=== PATIENT | male | born 1945 | race Caucasian/White ===

== ENCOUNTER → 2018-04-14 08:00 | Outpatient (BNVA) | payer MEDICARE, BC, SELFPAY | PROVIDERS: PCP Internal Medicine; Referring Provider Internal Medicine; Visit Provider Student in an Organized Health Care Education/Training Program | DX: R69 Illness, unspecified (principal) ==

== ENCOUNTER 2018-04-14 10:06 | Day surgery (SDC) | payer MEDICARE, BC, SELFPAY ==
[2018-04-14 10:26] VITALS: BP 118/78; PULSE 68; RESP 16; TEMP 36; O2SAT 98
--- NOTE | 2018-04-14 10:59 | W.PM.DSUDISC ---
Discharge Plan Disposition Patient Disposition: HOME Condition: Good Discharge Details Reason For Visit: LRF TRIGGER FINGER Attending Provider: Zurdo Daniel Primary Care Provider: Reji Adams Home Meds and New Rx's Prescriptions: Continue alprazolam [Xanax] 0.25 MG tablet 0.25 mg PO BID RF: 0 pravastatin 20 MG tablet 20 mg PO DAILY RF: 0 saw palmetto 160 mg Capsule 160 mg PO DAILY RF: 0 ha extract 500 mg Capsule 500 mg PO DAILY RF: 0 Discharge Instructions Additional Instructions: Resume your home medications. Take Tylenol (up to 1000mg every 8 hours) and Ibuprofen (up to 800mg every 8 hours) as needed for pain. You may apply ice. Stand Alone Forms: María Babin Activity:: Elevate Remove Dressings/Wound Care:: 48 hours Shower/Bathe:: 48 hours Discharge Orders Discharge Orders: Discharge Order (Routine); Ordered 04/14/18 Ordered By: Zurdo Daniel DS: Diagnosis Discharge Diagnosis (1) Trigger finger, left ring finger: Status: Acute
[2018-04-14] MEDS: Bupivacaine 0.5% Pres-Free 30 ML VIAL (11:54)
[2018-04-14] MEDS: Lidocaine 1% Pres-Free 5 ML VIAL 10 ML (12:02)
--- NOTE | 2018-04-14 12:42 | W.PM.OP ---
Date of service: 04/14/18 Time of Service: 10:42 Operative Note DATE OF PROCEDURE: 04/14/18 PRE-OP DIAGNOSIS: Trigger Finger -left ring finger POST-OP DIAGNOSIS: same PROCEDURE: Trigger Finger Release -left ring finger SURGEON: Zurdo Daniel ANESTHESIA: local PATHOLOGY: none sent COMPLICATIONS: None Patient was transported to: same day Patient's condition: stable Indications: I have seen Gregg in clinic for symptoms of a trigger finger. The catching, clicking, locking, and pain limited function. The diagnosis of trigger finger was evident. The symptoms had not responded to conservative measures. I discussed trigger finger release with the patient. I reviewed the risks of the procedure to include, but not limited to, bleeding, infection, pain, stiffness, incomplete release, damage to nerves or vessels, continued catching, recurrence. Despite these risks, the patient elected to proceed. Findings: There was a tightened A1 cheikh which was released. The flexor tendons were inspected and the patient was able to move the finger without any catching, clicking, or locking. Procedure Description: Gregg was greeted in the preoperative holding area where the correct side was identified and marked. The consent was reviewed with the patient and signed. All questions were answered. Gregg was taken back to the operating room. The patient was placed into the supine position on the operating room table with the left arm on an arm board. All bony prominences were well padded. No prophylactic antibiotics were administered since this was a clean, elective hand surgical case. The left arm was then prepped with Chloraprep and draped in a standard fashion with stockinette and extremity drape. A timeout to confirm correct identity, side and site, procedure, allergies, anesthesia, and medical concerns was performed. The surgical site was marked as a longitudinal incision directly over the A1 cheikh of the involved digit. This was confirmed with palpation during finger flexion. This area, overlying the metacarpal head, was then anesthetized with 1% Lidocaine. The patient tolerated this well and once the anesthetic had setup, the procedure began. A longitudinal incision was made through skin only, approximately 1cm. The deep tissues were dissected bluntly. Once the A1 cheikh and flexor tendons were identified the soft tissue including neurovascular structures were retracted medially and laterally. There were no crossing structures over the A1 cheikh. The proximal edge of the cheikh was identified and the cheikh was incised with tenotomy scissors. There was a release of the tendons once this was fully released. The tendons were then removed from the wound and inspected. Excess synovium was resected. The tendons were then returned and the patient was asked to move the finger into deep flexion and back to extension. There was no recreation of the pre-operative symptoms. The hand was then once more inspected for any A0 cheikh or area of possible constriction. The wound was then irrigated and the skin was closed with a 4-0 Nylon. This was dressed with gauze and a Conform dressing. The patient tolerated the procedure well and was returned to the Same Day Surgery area in a stable condition suffering no known complication.
--- NOTE | 2018-04-15 07:47 | ROE_ITS ---
Date of service: 04/14/18 Time of Service: 10:42 Operative Note DATE OF PROCEDURE: 04/14/18 PRE-OP DIAGNOSIS: Trigger Finger -left ring finger POST-OP DIAGNOSIS: same PROCEDURE: Trigger Finger Release -left ring finger SURGEON: Zurdo Daniel ANESTHESIA: local PATHOLOGY: none sent COMPLICATIONS: None Patient was transported to: same day Patient's condition: stable Indications: I have seen Gregg in clinic for symptoms of a trigger finger. The catching, clicking, locking, and pain limited function. The diagnosis of trigger finger was evident. The symptoms had not responded to conservative measures. I discussed trigger finger release with the patient. I reviewed the risks of the procedure to include, but not limited to, bleeding, infection, pain , stiffness, incomplete release, damage to nerves or vessels, continued catching , recurrence. Despite these risks, the patient elected to proceed. Findings: There was a tightened A1 cheikh which was released. The flexor tendons were inspected and the patient was able to move the finger without any catching, clicking, or locking. Procedure Description: Gregg was greeted in the preoperative holding area where the correct side was identified and marked. The consent was reviewed with the patient and signed. All questions were answered. Gregg was taken back to the operating room. The patient was placed into the supine position on the operating room table with the left arm on an arm board. All bony prominences were well padded. No prophylactic antibiotics were administered since this was a clean, elective hand surgical case. The left arm was then prepped with Chloraprep and draped in a standard fashion with stockinette and extremity drape. A timeout to confirm correct identity, side and site, procedure, allergies, anesthesia, and medical concerns was performed. The surgical site was marked as a longitudinal incision directly over the A1 cheikh of the involved digit. This was confirmed with palpation during finger flexion. This area, overlying the metacarpal head, was then anesthetized with 1 % Lidocaine. The patient tolerated this well and once the anesthetic had setup , the procedure began. A longitudinal incision was made through skin only, approximately 1cm. The deep tissues were dissected bluntly. Once the A1 cheikh and flexor tendons were identified the soft tissue including neurovascular structures were retracted medially and laterally. There were no crossing structures over the A1 cheikh. The proximal edge of the cheikh was identified and the cheikh was incised with tenotomy scissors. There was a release of the tendons once this was fully released. The tendons were then removed from the wound and inspected. Excess synovium was resected. The tendons were then returned and the patient was asked to move the finger into deep flexion and back to extension. There was no recreation of the pre- operative symptoms. The hand was then once more inspected for any A0 cheikh or area of possible constriction. The wound was then irrigated and the skin was closed with a 4-0 Nylon. This was dressed with gauze and a Conform dressing. The patient tolerated the procedure well and was returned to the Same Day Surgery area in a stable condition suffering no known complication.
== END 2018-04-14 12:45 | disposition home or self-care (01) ==
PROVIDERS: PCP Internal Medicine; Visit Provider Student in an Organized Health Care Education/Training Program
PROC: (CPT 26055; principal; 2018-04-14 12:45)
DX: M65.342 Trigger finger, left ring finger (principal)
CPT/HCPCS: 26055

== ENCOUNTER → 2018-05-13 07:54 | Outpatient (BNVA) | payer MEDICARE, BC, SELFPAY | PROVIDERS: PCP Internal Medicine; Referring Provider Internal Medicine; Visit Provider Student in an Organized Health Care Education/Training Program | DX: M25.562 Pain in left knee (principal); G89.29 Other chronic pain; M70.61 Trochanteric bursitis, right hip; M16.11 Unilateral primary osteoarthritis, right hip; M17.12 Unilateral primary osteoarthritis, left knee | CPT/HCPCS: 20610; 99214; J1040 ==

== ENCOUNTER 2018-05-21 00:33 | Outpatient (CLI) | payer MEDICARE, BC, SELFPAY ==
--- NOTE | 2018-05-21 09:48 | DI.RAD_ITS ---
SYMPTOM/DIAGNOSIS: DJD RT HIP, UNILATERAL PRIMARY OA, M16.11 RIGHT HIP INJECTION: Fluoroscopy Time: 3 seconds Fluoroscopy was utilized by Dr. Daniel during right hip injection. Hard copy shows intra-articular injection of the right hip.
[2018-05-21] MEDS: Bupivacaine 0.5% Pres-Free 10 ML VIAL 5 ML IJ (09:50)
[2018-05-21] MEDS: Omnipaque 300 MG/ML 10 ML BTL IJ (09:51)
--- NOTE | 2018-05-21 10:35 | W.PROCNOTE ---
Date of service: 05/21/18 Time of Service: 10:35 Procedure Note Date of procedure: 05/21/18 Procedure: Right Hip Injection with Fluoroscopic Guidance Surgeon/Proceduralist/Physician: Zurdo Daniel Procedure Diagnosis: Right Hip Osteoarthritis Procedure Indications: Ken has had persistent pain of the RIGHT hip and groin. Noninvasive measures have been tried. To serve as both diagnostic and therapeutic, an injection under fluoroscopy was recommended. I had discussed the risks of the procedure and the patient elected to proceed. Procedure Description: Ken was greeted in the flouroscopy room. The correct side was identified and the consent was reviewed with the patient and signed. The patient was then placed in the supine position on the fluoroscopy table. The RIGHT hip was then prepped with Chloraprep. The anterolateral injection starting point was identiifed by bony landmarks and fluoroscopy. The skin and soft tissue in the tract of the injection was anesthetized with 1% Lidocaine. A spinal needle was then inserted deep into the hip joint at the level of the lateral femoral neck under fluoroscopic guidance. A small amount of Omnipaque solution was injected to confirm intraarticular placement. Once confirmed, the hip was injected with 6cc of 0.5% Bupivicaine. A bandaid was placed on the injection site. The patient tolerated the procedure well and noted improvement in pre-injection pain.
== END 2018-05-21 00:53 ==
PROVIDERS: PCP Internal Medicine; Visit Provider Student in an Organized Health Care Education/Training Program
DX: M25.551 Pain in right hip; M16.11 Unilateral primary osteoarthritis, right hip
CPT/HCPCS: 20610; 77002

== ENCOUNTER → 2018-05-25 14:40 | Outpatient (BNVA) | payer MEDICARE, BC, SELFPAY | PROVIDERS: PCP Internal Medicine; Referring Provider Internal Medicine; Visit Provider Student in an Organized Health Care Education/Training Program | DX: M70.61 Trochanteric bursitis, right hip (principal); S83.282D Other tear of lateral meniscus, current injury, left knee, subsequent encounter; X58.XXXD Exposure to other specified factors, subsequent encounter | CPT/HCPCS: 99213 ==

== ENCOUNTER 2018-07-14 08:24 | Day surgery (SDC) | payer MEDICARE, BC, SELFPAY ==
[2018-07-14] VITALS (13 sets, daily range): BP systolic 57–123; BP diastolic 31–78; PULSE 51–65; RESP 12–26; TEMP 35.3–36.6; O2SAT 96–100
[2018-07-14] MEDS: Lactated Ringers 1,000 ML 80 ML IV ×2 (09:20→14:00)
[2018-07-14] MEDS: Bupivacaine LIPOSOME/PF 133 MG/10 ML VIAL IJ ×2 (11:05→13:48)
[2018-07-14] MEDS: Bupivacaine 0.5% Pres-Free 30 ML VIAL (11:05)
--- NOTE | 2018-07-14 11:33 | W.PM.DSUDISC ---
Discharge Plan Disposition Patient Disposition: HOME Condition: Good Discharge Details Reason For Visit: (L) SHOULDER DISTAL CLAVICLE,RTC,BICEP TENODESIS Attending Provider: Zurdo Daniel Primary Care Provider: Reji Adams Home Meds and New Rx's Prescriptions: New ibuprofen 600 mg tablet 600 mg PO TID PRNQty: 90 RF: 3 acetaminophen 500 mg capsule 1,000 mg PO Q8H PRN (Reason: pain) Qty: 90 RF: 0 oxycodone 5 mg tablet 5 mg PO Q4H Qty: 15 RF: 0 Continued alprazolam [Xanax] 0.25 MG tablet 0.25 mg PO BID PRNRF: 0 pravastatin 20 MG tablet 20 mg PO HS RF: 0 ha extract 500 mg Capsule 500 mg PO DAILY RF: 0 aspirin [Aspirin Childrens] 81 mg Tablet,Chewable 81 mg PO DAILY RF: 0 multivitamin with minerals [Men's One Daily] Tablet 1 tab PO DAILY RF: 0 Prostate Health 160-100-100 mg-unit-mcg Tablet 1 tab PO BID RF: 0 [place] 6 mg PO DAILY RF: 0 docusate sodium 100 mg Tablet 100 mg RF: 0 Discontinued acetaminophen [Tylenol] 325 mg Capsule 325 mg PO Q6H PRNRF: 0 Discharge Instructions Stand Alone Forms: María nunez/DANE Equipment/Supplies: Sling Activity:: Elevate Remove Dressings/Wound Care:: 72 hours Shower/Bathe:: 72 hours Diet:: As Tolerated Discharge Orders Discharge Orders: Discharge Order (Routine); Ordered 07/14/18 Ordered By: Zurdo Daniel DS: Diagnosis Discharge Diagnosis (1) Left rotator cuff tear: Status: Acute
[2018-07-14] MEDS: CLINDAMYCIN 600 MG/50 ML BAG 100 MG IVPB (11:40)
[2018-07-14] MEDS: Bupivacaine 0.25% Pres-Free 30 ML VIAL (13:48)
--- NOTE | 2018-07-15 09:42 | ROE_ITS ---
REPORT OF OPERATIVE PROCEDURE DATE OF SURGERY July 14, 2018 PREOPERATIVE DIAGNOSES Left SLAP tear, biceps tendinitis, rotator cuff tear, AC arthritis. POSTOPERATIVE DIAGNOSES Left SLAP tear, biceps tendinitis, rotator cuff tear, AC arthritis. SURGERY Left should distal clavicle excision, arthroscopic rotator cuff repair of the subscapularis tendon, open subpectoral biceps tenodesis for SLAP tear and biceps tearing, debridement of partial bursal-sided rotator cuff tear. SURGEON Zurdo Daniel M.D. MBA INTERN Dickson De Paz FINDINGS There was a notable torn biceps tendon with a large longitudinal split, as well as tearing at the anchor of the labrum. A biceps tenotomy was performed, then later a subpectoral biceps tenodesis. The subscapularis tendon had almost complete avulsion of the superior fibers from the tuberosity. A rotator cuff repair was performed of the subscapularis tendon. The articular portion of the rotator cuff was well attached. The bursal side of the rotator cuff showed a lamination of fibers, which looked to be partially healed. He does have a history of rotator cuff repair. Given the articular fibers appeared to be in good health, and the thickness of this was approximately 4 mm, less than half, I did not try to repair this, as it was at the musculotendinous junction. It was debrided extensively. There was a downward projection of the acromion at the level of the AC joint, which was debrided and resected. The distal clavicle was also resected with a 1-cm wedge. ANESTHESIA Interscalene nerve block and General. ESTIMATED BLOOD LOSS 20 cc COMPLICATIONS None DISPOSITION The patient was awakened from anesthesia and taken to the Postanesthesia Care Unit in stable condition. INDICATIONS FOR PROCEDURE Ken is a 72-year-old who has had persistent left shoulder pain. It has been waxing and waning over the past few years. However, in the last few months it has become progressively more symptomatic. The pain was primarily over the dorsal aspect of the shoulder, as well as deep within the shoulder anteriorly. MRI did show what appeared to be some high-grade partial tearing of the rotator cuff, as well as a questionable tear of the biceps tendon and a SLAP tear. He did have previous surgery on this shoulder many years ago, which he thinks included rotator cuff repair. Given his pain, his weakness and dysfunction, I did offer surgical intervention after a failure of conservative treatment options. I reviewed the risks of the procedure to include bleeding, infection, pain, stiffness, weakness, damage to nerves and vessels, damage to muscles and tendons, the need for repeat procedures, blood clot, despite these risks, he elected to proceed. DESCRIPTION OF PROCEDURE Ken was greeted in the preoperative holding area. His identity was confirmed and the correct side was identified and marked. The consent was reviewed with the patient and signed. The history and physical was updated. He was taken back to the PACU where a regional anesthetic was performed by Real Jolley CRNA. After the completion of the interscalene nerve block, he was taken back to the Operating Room. General anesthetic was administered. He was positioned in the Beach chair position. All bony prominences were well padded. The head was placed into a neutral position within a foam overhead crane truck loader. The left arm was prepped with ChloraPrep and draped in standard fashion. Prophylactic antibiotics in the form of Clindamycin were administered. A time-out was performed for safe surgery. The surface anatomy of the shoulder was first identified. There was an old scar from many years ago, which was noted, but not used. The anatomy of the acromion was very difficult to appreciate and it is unclear if they performed any true acromial resection at the previous surgery. I first addressed the distal clavicle with a 2.5-cm incision over the AC joint. This was taken down sharply through the skin and the clavipectoral fascia was identified and excised longitudinally. The distal clavicle had significant deformity and osteophytes seen. A 1-cm resection was made of the distal clavicle once it was fully exposed. There was a large protruding osteophyte seen inferiorly. A rasp was used to bevel the distal clavicle in a superior lateral to inferior medial direction, making sure to remove the projected bony osteophytes. This was done both with rongeur and rasp. Afterwards there was significant release of space in the AC joint and the downward projection on the distal clavicle as seen on x-ray and on MRI was removed. The wound was thoroughly irrigated. A small amount of bone wax was placed on the end of the distal clavicle. The clavipectoral fascia was then re-approximated with a #0-Vicryl. The deep tissues were closed with #2- 0 Vicryl. Our attention was then turned to the shoulder arthroscopy portion of the case. A standard posterior portal was identified with the spinal needle, after insufflating the joint with normal saline. The joint was then entered atraumatically from a posterior position with a blunt arthroscope. Once inside, we had excellent visualization. An anterior portal was made within the rotator interval using a spinal needle localization. A 6.5-mm cannula was placed through this interval. Then using a probe, a diagnostic arthroscopy was performed. It showed some mild arthritic changes of the shoulder, grade I chondromalacia of the glenoid. The labrum showed some fraying in the superior aspect associated with the anchor of the biceps tendon. The biceps tendon also showed a longitudinal split extending into the anchor itself and down into the groove. There was fraying seen along this course with complete obliteration of the normal epitendinous covering. A biceps tenotomy was then performed for later tenodesis. The labrum was debrided from anterior to posterior both with shaver and electrocautery to contour the labrum and remove any of the fraying and loose pieces. The superior portion of the glenoid was also debrided down to promote some adherence of the labrum to the glenoid. However, the remaining labrum was not grossly unstable. There were notable inflammatory changes seen on the under surface of the rotator cuff tendons. The subscapularis tendon was identified and showed some fraying. With internal rotation, it was notable that the subscapularis tendon lifted off the footprint with only a very small amount of superior and anterior fibers remaining. There was both a longitudinal split and this pull-off section. This was for the upper one third of the subscapularis tendon. Using a shaver, I debrided down the tendon edges. I also debrided down their exposed footprint. A 4.5-mm Mitek Healix Tanana was then placed within the footprint. A single horizontal mattress suture was placed within the subscapularis tendon bringing down this tendon, which was lifted off onto the bone. This was tested both in internal rotation, where there was no gapping noted and it was stable to 45 degrees of external rotation. The articular side of the rotator cuff was more fully identified. The visualization was slightly difficult, but with the arm manipulated, I was able to obtain visualization of the articular fibers attaching to the footprint. There was some degenerative tissue seen within the crescent. However, there was no tia tear. The frayed and degenerative tissues were debrided down until healthy tissue was identified. The cable was intact. The posterior rotator cuff was also intact. The scope was then removed. We then turned our attention to the subpectoral biceps tenodesis. With the arm in slightly abducted and external rotated position, the pectoralis major tendon was identified. A 2-cm incision was made at its insertion moving distally. The deep tissues were dissected bluntly and the biceps tendon was identified within its groove. The sheath of the biceps tendon was opened with Metzenbaum scissors. The tendon was removed with finger dissection. The tendon was once again seen to have significant tearing proximally, but also a longitudinal tear extending down the length of the biceps tendon. The bicipital groove was prepared with a rasp. A Mitek Lupine anchor was inserted into the bicipital groove. Using a free needle, I then placed a locking suture through the biceps tendon at the level of the musculotendinous junction moving proximally 1 cm. This was a locking suture. Only one limb from each suture was used. The free suture was then used as the shuttle suture. Excess tendon was removed. The sutures were then pulled and shuttled the tendon down onto the bone. The tendon had excellent approximation down to bone. The sutures were then tied over the tendon. This secured the tendon to the bone. There was no notable interposed soft tissue. The arm was then irrigated. The deep tissues were closed with #2-0 Vicryl. The arm was then brought back into a neutral position and we turned our attention to the subacromial portion of the case. The Arthroscope was inserted from the posterior position into the subacromial space. This was exited anteriorly, lateral to the CA ligament. A 6.5-mm cannula was inserted into the subacromial space. There was dense bursal inflammation seen throughout the space. Debridement was performed both with electrocautery and shaver to expose the under surface of the acromion and the rotator cuff underlying it. A lateral portal was also established for visualization. The rotator cuff was identified. There was notable fraying over the bursal surface. This was debrided down until the tendinous fibers were appreciated. The tuberosity seemed to be well covered without any tear with exposed tuberosity. However, approximately 1.5 cm proximal to the tuberosity there was a crescent shaped partial tearing seen of the rotator cuff tendon. It was adherent to the undersurface and was right at the level of the musculotendinous junction. It is unclear if this was remnant from previous surgery. It was unable to be fully mobilized. It was measured to be about 4 mm thick. There was at least 6 mm of thickness of tendon remnant still on the tuberosity. Therefore, I made the decision to debride this rather than try to fix this bursal-sided tear. The articular side appeared to be intact and therefore we debrided this down. It could very well be remnant from previous surgery. However, no sutures were discovered. This was debrided down, clearing off any of the loose edges and promoting a bleeding environment. The anterolateral aspect of the acromion was identified, which did not have a significant spur, but on the anteromedial aspect of the acromion right at the level of remnant AC joint there was a downward spike of the acromion. This was resected with a bur, completing the acromioplasty. The subacromial space was further irrigated. The scope equipment was removed. The shoulder was then closed with #4-0 Monocryl. The wounds were dressed with Steri-Strips, 4x4s, ABD, Medipore tape. He was placed into a sling. At the end of the case, all counts were correct.
== END 2018-07-14 17:34 | disposition home or self-care (01) ==
PROVIDERS: PCP Internal Medicine; Visit Provider Student in an Organized Health Care Education/Training Program
PROC: (CPT 23120; principal; 2018-07-14 11:00)
PROC: (CPT 29827; 2018-07-14 11:00)
PROC: (CPT 23430; 2018-07-14 11:00)
PROC: (CPT 23130; 2018-07-14 11:00)
DX: S43.432A Superior glenoid labrum lesion of left shoulder, initial encounter (principal); X58.XXXA Exposure to other specified factors, initial encounter; M75.22 Bicipital tendinitis, left shoulder; M75.112 Incomplete rotator cuff tear or rupture of left shoulder, not specified as traumatic; M19.012 Primary osteoarthritis, left shoulder; M89.9 Disorder of bone, unspecified; M94.212 Chondromalacia, left shoulder
CPT/HCPCS: 23430; 29827; 29823; 23120; 29826; 76942; J2250; J2370; J2405; L3670

== ENCOUNTER → 2018-07-31 11:14 | Outpatient (BNVA) | payer MEDICARE, BC, SELFPAY | PROVIDERS: PCP Internal Medicine; Referring Provider Internal Medicine; Visit Provider Student in an Organized Health Care Education/Training Program | DX: M75.112 Incomplete rotator cuff tear or rupture of left shoulder, not specified as traumatic; S43.432D Superior glenoid labrum lesion of left shoulder, subsequent encounter; X58.XXXD Exposure to other specified factors, subsequent encounter ==

== ENCOUNTER → 2018-08-28 10:40 | Outpatient (BNVA) | payer MEDICARE, BC, SELFPAY | PROVIDERS: PCP Internal Medicine; Referring Provider Internal Medicine; Visit Provider Student in an Organized Health Care Education/Training Program | DX: S43.432D Superior glenoid labrum lesion of left shoulder, subsequent encounter (principal); X58.XXXD Exposure to other specified factors, subsequent encounter; M75.22 Bicipital tendinitis, left shoulder; M75.112 Incomplete rotator cuff tear or rupture of left shoulder, not specified as traumatic; M19.012 Primary osteoarthritis, left shoulder ==

== ENCOUNTER → 2018-09-17 12:02 | Outpatient (BNVA) | payer MEDICARE, BC, SELFPAY | PROVIDERS: PCP Internal Medicine; Visit Provider Psychiatry & Neurology Neurology | DX: G95.9 Disease of spinal cord, unspecified (principal); G56.01 Carpal tunnel syndrome, right upper limb; G56.21 Lesion of ulnar nerve, right upper limb | CPT/HCPCS: 95910; 99205; 99215 ==

== ENCOUNTER → 2018-10-09 09:53 | Outpatient (BNVA) | payer MEDICARE, BC, SELFPAY | PROVIDERS: PCP Internal Medicine; Referring Provider Internal Medicine; Visit Provider Student in an Organized Health Care Education/Training Program | DX: Z47.89 Encounter for other orthopedic aftercare (principal); M75.102 Unspecified rotator cuff tear or rupture of left shoulder, not specified as traumatic; M25.561 Pain in right knee; M25.551 Pain in right hip | CPT/HCPCS: 99212 ==

== ENCOUNTER → 2018-11-04 08:03 | Outpatient (BNVA) | payer MEDICARE, BC, SELFPAY | PROVIDERS: PCP Internal Medicine; Referring Provider Neurological Surgery; Visit Provider Psychiatry & Neurology Neurology | DX: G56.02 Carpal tunnel syndrome, left upper limb (principal); G56.22 Lesion of ulnar nerve, left upper limb; Z98.890 Other specified postprocedural states ==

== ENCOUNTER → 2018-12-04 10:21 | Outpatient (BNVA) | payer MEDICARE, BC, SELFPAY | PROVIDERS: PCP Internal Medicine; Referring Provider Internal Medicine; Visit Provider Student in an Organized Health Care Education/Training Program | DX: M17.12 Unilateral primary osteoarthritis, left knee (principal) | CPT/HCPCS: 99212; 99213 ==

== ENCOUNTER → 2019-03-15 10:23 | Outpatient (BNVA) | payer MEDICARE, BC, SELFPAY | PROVIDERS: PCP Internal Medicine; Referring Provider Internal Medicine; Visit Provider Student in an Organized Health Care Education/Training Program | DX: M65.332 Trigger finger, left middle finger (principal); M65.341 Trigger finger, right ring finger | CPT/HCPCS: 20600; 99214; J1030 ==

== ENCOUNTER 2019-08-06 11:06 | Outpatient (CLI) | payer MEDICARE, BC, SELFPAY ==
--- NOTE | 2019-08-06 10:59 | DI.RAD_ITS ---
EXAM: XR KNEE LT 3V AP,LAT,SURINDER CLINICAL HISTORY: eval L knee pain TECHNIQUE: Three views were obtained. COMPARISON: No exams were available for comparison FINDINGS: The bones appear demineralized. There are epiphyseal remnants of the femur, tibia, and fibula. There are very prominent enthesophytes of the superior aspect of the patella and there may be thickening of quadriceps tendon attachment. Mild marginal osteophyte formation noted most prominent at the patello femoral joint. No other significant bony abnormality seen apart from previously mentioned demineraliz ation.
--- NOTE | 2019-08-06 11:03 | DI.RAD_ITS ---
EXAM: XR HIP PELVIS ADULT BL CLINICAL HISTORY: eval bilateral hip pain TECHNIQUE: Five views were obtained. COMPARISON: No exams were available for comparison FINDINGS: There are moderate degenerative changes of the SI joints and the lower lumbar spine with an apparent posterior spinal fusion. There is moderate to severe narrowing of the cartilaginous joint spaces of both hips superiorly with subchondral sclerosis of the acetabulum and femoral heads. Moderate margin al osteophyte formation noted bilaterally. Deformity of femoral heads is noted bilaterally which may reflect remote insult. Moderate spurring of the greater trochanters of the femurs noted bilaterally . No other significant bony abnormality seen. 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
== END 2019-08-06 11:26 ==
PROVIDERS: PCP Internal Medicine; Referring Provider Internal Medicine; Visit Provider Student in an Organized Health Care Education/Training Program
DX: M25.562 Pain in left knee (principal); M89.8X6 Other specified disorders of bone, lower leg; M25.551 Pain in right hip; M25.552 Pain in left hip; M16.0 Bilateral primary osteoarthritis of hip; M53.3 Sacrococcygeal disorders, not elsewhere classified; M17.12 Unilateral primary osteoarthritis, left knee
CPT/HCPCS: 73521; 73562; 99214

== ENCOUNTER → 2019-09-30 11:44 | Outpatient (BNVA) | payer MEDICARE, BC, SELFPAY | PROVIDERS: PCP Internal Medicine; Referring Provider Internal Medicine; Visit Provider Student in an Organized Health Care Education/Training Program | DX: M65.341 Trigger finger, right ring finger (principal); M65.322 Trigger finger, left index finger | CPT/HCPCS: 99214 ==

== ENCOUNTER 2019-12-02 08:28 | Outpatient (CLI) | payer MEDICARE, BC, SELFPAY ==
--- NOTE | 2019-12-02 08:45 | DI.RAD_ITS ---
EXAM: RF JOINT INJECTION FLUORO GUID CLINICAL HISTORY: L HIP PAIN, M25.552, GUIDANCE FOR HIP INJECTION TECHNIQUE: 2D and realtime digital imaging was performed. Fluoroscopy was provided in the OR COMPARISON: CR XR HIP PELVIS ADULT BL from 08/06/2019 FINDINGS: Fluoroscopy was provided for guidance with left hip injection. Hard copy image shows degenerative ch anges of the left knee. A needle is seen placed adjacent to the lateral aspect of the femoral head. A small amount of contrast is injected. Please see procedure note for details. Fluoro Time: 9 seconds RADIATION DOSE DELIVERED:
--- NOTE | 2019-12-02 08:45 | DI.RAD_ITS ---
EXAM: RF JOINT INJECTION FLUORO GUID CLINICAL HISTORY: RT HIP PAIN,M25.552, GUIDANCE FOR HIP INJECTION TECHNIQUE: 2D and realtime digital imaging was performed. COMPARISON: CR XR HIP PELVIS ADULT BL from 08/06/2019 FINDINGS: Fluoroscopy was provided for guidance with performing a right hip injection. Hard copy image shows a needle projecting from the lateral aspect, at the margin of the right femoral head and neck. Contra st is injected. Degenerative changes are noted. Please see procedure note for details. Fluoro Time: 13 seconds RADIATION DOSE DELIVERED:
[2019-12-02] MEDS: Bupivacaine 0.5% Pres-Free 10 ML VIAL IJ (15:27)
[2019-12-02] MEDS: methylPREDNISolone ACETATE 80 MG/ML VIAL 160 MG IM (15:28)
[2019-12-02] MEDS: Omnipaque 300 MG/ML 10 ML BTL 1.5 ML IJ (15:28)
--- NOTE | 2019-12-03 06:30 | OPPNE_ITS ---
Date of service: 12/02/19 Time of Service: 15:30 Procedure Note Date of procedure: 12/02/19 Procedure: Bilateral Hip Injection with Fluoroscopic Guidance Surgeon/Proceduralist/Physician: Zurdo Daniel Procedure Diagnosis: Bilateral Hip Osteoarthritis Procedure Indications: Ken has had persistent pain of both hip and groin. Noninvasive measures have been tried. To serve as both diagnostic and therapeutic, an injection under fluoroscopy was recommended. I had discussed the risks of the procedure and the patient elected to proceed. Procedure Description: Ken was greeted in the flouroscopy room. The correct side was identified and the consent was reviewed with the patient and signed. The patient was then placed in the supine position on the fluoroscopy table. The RIGHT hip was then prepped with Chloraprep. The anterolateral injection starting point was identiifed by bony landmarks and fluoroscopy. The skin and soft tissue in the tract of the injection was anesthetized with 1% Lidocaine. A spinal needle was then inserted deep into the hip joint at the level of the lateral femoral neck under fluoroscopic guidance. A small amount of Omnipaque solution was injected to confirm intraarticular placement. Once confirmed, the hip was injected with 5cc of 0.5% Bupivicaine and 80mg of Depo-Medrol. A bandaid was placed on the injection site. Attention was then turned to the left side. The LEFT hip was then prepped with Chloraprep. The anterolateral injection starting point was identiifed by bony l andmarks and fluoroscopy. The skin and soft tissue in the tract of the injection was anesthetized with 1% Lidocaine. A spinal needle was then inserted deep into the hip joint at the level of the lateral femoral neck under fluoroscopic guidance. A small amount of Omnipaque solution was injected to confirm intraarticular placement. Once confirmed, the hip was injected with 5cc of 0.5% Bupivicaine and 80mg of Depo-Medrol. A bandaid was placed on the injection site. The patient tolerated the procedure well.
== END 2019-12-02 08:48 ==
PROVIDERS: PCP Internal Medicine; Visit Provider Student in an Organized Health Care Education/Training Program
DX: M25.551 Pain in right hip (principal); M25.552 Pain in left hip; M16.11 Unilateral primary osteoarthritis, right hip; M16.12 Unilateral primary osteoarthritis, left hip
CPT/HCPCS: 20610 ×2; 77002; J1040

== ENCOUNTER 2020-03-20 14:49 | Outpatient (CLI) | payer MEDICARE, BC, SELFPAY ==
--- NOTE | 2020-03-20 14:45 | DI.RAD_ITS ---
EXAM: XR PELVIS AP CLINICAL HISTORY: pre ROYAL TECHNIQUE: COMPARISON: CR XR HIP PELVIS ADULT BL from 08/06/2019 FINDINGS: Single AP view of the pelvis was obtained. There is severe loss of the cartilaginous joint space of the left hip and moderate to severe loss of the cartilaginous joint space of the right hip. There is subchondral sclerosis of bones of both hips and there is femoral head deformity bilaterally. Modera te marginal osteophytes noted of the femoral heads and acetabula bilaterally. IMPRESSION: Severe DJD both hips, left greater than right. RADIATION DOSE DELIVERED: Total DLP
== END 2020-03-20 15:09 ==
PROVIDERS: PCP Internal Medicine; Referring Provider Internal Medicine; Visit Provider Student in an Organized Health Care Education/Training Program
DX: M16.12 Unilateral primary osteoarthritis, left hip; M17.12 Unilateral primary osteoarthritis, left knee; M16.11 Unilateral primary osteoarthritis, right hip; G56.21 Lesion of ulnar nerve, right upper limb
CPT/HCPCS: 20610; 99214; 72170; J1040

== ENCOUNTER 2020-04-07 03:19 | Outpatient (CLI) | payer MEDICARE, BC, SELFPAY ==
[2020-04-07 14:18] LABS: HGB 14.1 g/dL (13.5-17.5); MCH 30.3 pg (27.0-33.0); MCHC 33.6 % (32.0-36.0); MCV 90.3 fL (80-95); MPV 9.4 fL (8.0-11.0); Platelet Count 199 10^3/uL (130-400); RBC 4.65 10^6/uL (4.36-5.78); RDW 13.9 % (11.8-14.1); RDW-SD 46.1 fL
[2020-04-07 15:04] LABS: Anion Gap 5.2 mmol/L (3-11); BUN 19 mg/dL (7-18); CO2 29.8 mmol/L (21.0-32.0); CREATININE 1.03 mg/dL (0.70-1.30); Calcium 8.9 mg/dL (8.5-10.1); Chloride 102 mmol/L (98-107); Glucose 103 mg/dL (74-106); Potassium 4.3 mmol/L (3.5-5.1); Sodium 137 mmol/L (136-145)
[2020-04-08 20:29] LABS: COVID-19 RT-PCR Result NEGATIVE (Negative)
== END 2020-04-07 03:39 ==
PROVIDERS: PCP Internal Medicine; Visit Provider Student in an Organized Health Care Education/Training Program
DX: M16.12 Unilateral primary osteoarthritis, left hip (principal); G56.21 Lesion of ulnar nerve, right upper limb; Z01.818 Encounter for other preprocedural examination
CPT/HCPCS: 36415; 80048; 85027; 86850; 86900; 86901; U0003

== ENCOUNTER 2020-04-11 06:04 | Inpatient (IN) | payer MEDICARE, BC, SELFPAY ==
[2020-04-11] VITALS (11 sets, daily range): BP systolic 78–108; BP diastolic 40–70; PULSE 46–65; RESP 13–20; TEMP 35.7–36.7; O2SAT 98–100
[2020-04-11] MEDS: Acetaminophen 500 MG TAB 1000 MG PO ×2 (06:51→13:49)
[2020-04-11] MEDS: Celecoxib 200 MG CAP 400 MG PO (06:51)
[2020-04-11] MEDS: Lactated Ringers 1,000 ML 80 ML IV ×2 (07:00→11:42)
[2020-04-11] MEDS: Lidocaine 2% Jelly 6 ML SYR (08:00)
[2020-04-11] MEDS: ceFAZolin 2 GM/50 ML BAG IVPB (08:05)
--- NOTE | 2020-04-11 08:15 | DI.RAD_ITS ---
EXAM: XR HIP LT IN OR CLINICAL HISTORY: total hip TECHNIQUE: COMPARISON: No exams were available for comparison FINDINGS: Fluoroscopy was utilized by Dr. Daniel during placement of left hip prosthesis. Hard copies show f emoral and acetabular components in good position. Fluoro time, 36.9 seconds. IMPRESSION: RADIATION DOSE DELIVERED: Total DLP
--- NOTE | 2020-04-11 08:15 | DI.RAD_ITS ---
EXAM: XR HIP RT IN OR CLINICAL HISTORY: total hip TECHNIQUE: COMPARISON: No exams were available for comparison FINDINGS: Fluoroscopy was utilized by Dr. Daniel during placement of right hip prosthesis. Hard copies show femoral and acetabular components in good position. Fluoro time, 31.8 seconds. IMPRESSION: RADIATION DOSE DELIVERED: Total DLP
[2020-04-11] MEDS: niCARdipine 25 MG/10 ML VIAL IV (08:35)
[2020-04-11] MEDS: Bupivacaine 0.25% Pres-Free 30 ML VIAL (09:02)
[2020-04-11] MEDS: Ketorolac 30 MG/ML VIAL (09:04)
[2020-04-11] MEDS: Normal Saline 20 ML VIAL (09:07)
--- NOTE | 2020-04-11 11:59 | ROE_ITS ---
Date of service: 04/11/20 Time of Service: 10:50 Operative Note Operative Note DATE OF PROCEDURE: 04/11/20 PRE-OP DIAGNOSIS: Bilateral Hip Osteoarthritis POST-OP DIAGNOSIS: same PROCEDURE: Bilateral Anterior Total Hip Arthroplasty SURGEON: Zurdo Daniel ENGINEERING PSYCHOLOGIST: Elizabeth Harris ANESTHESIA: GETA ESTIMATED BLOOD LOSS: 700 PATHOLOGY: none sent COMPLICATIONS: None Patient was transported to: PACU Patient's condition: stable Implants: RIGHT: 1. Depuy Carney Acetabular Component, 54mm 2. Depuy Acetabular Liner, [id number] 3. Depuy Corail Standard Collared Femoral Stem, Size 15 4. Depuy Altrx Ceramic Femoral Head, Size 36+8.5mm LEFT: 1. Depuy Carney Acetabular Component, 54mm 2. Depuy Acetabular Liner, [id number] 3. Depuy Corail Standard Collared Femoral Stem, Size 15 4. Depuy Altrx Ceramic Femoral Head, Size 36+8.5mm Indications: I have seen Gregg in clinic for symptoms of bilateral hip arthritis, confirmed with radiographic findings. Gregg has exhausted nonoperative methods and was having significant limitations in daily function and desired better function and less pain. I discussed the technical details of a hip replacement. I explained the risks of the procedure to include, but not limited to, bleeding, infection, pain, stiffness, fracture, damage to nerves and vessels, damage to muscles and tendons, loosening, instability, leg length inequality, need for repeat procedure, blood clot and cardiopulmonary demise. Despite these risks, [NAME] elected to proceed. Findings: There was significant signs of arthritis throughout both hips. Procedure Description: Gregg was greeted in the preoperative holding area where the correct side was identified and marked. The consent was reviewed with the patient and signed. The history and physical was updated. All questions were answered. Gregg was taken back to the operating room. A spinal anesthestic was then administered. The patient was placed into the supine position on the operating room table. The patient was then positioned onto the ARCH table. Both feet were wrapped with [employer]brill cotton wrap along with Coban. LEFT Side The feet were placed in specialized boots for the ARCH table, well seated within the boot and secured. SCDs were applied. The patient was then slid down onto a peroneal post and the nonoperative leg was secured in a leg de anda attached to the table. The operative side was placed into the ARCH table attachment and bed height and positioning was secured. A preoperative AP pelvis was obtained to serve as a reference for determining leg lengths. Prophylactic antibiotics in the form of Cefazolin were administered. 1g of Tranxemic Acid was given intravenously within 30 minutes of incision. The left leg was then prepped with Chloraprep and draped in a standard fashion. A second prep with Chloraprep was performed prior to placement of a shower-curtain type drape with Iodine impregnated skin protection. A timeout to confirm correct identity, side and site, procedure, allergies, anesthesia, and medical concerns was performed. An obliquely oriented incision was made starting lateral to the ASIS and running distal over the Tensor Fascia Sis (TFL) muscle belly toward the fibular head, approximately 10cm. The skin and soft tissue was dissected sharply, through Sharon?s fascia, and to the fascia of the TFL. With the fascia and superior border of the IT band identified, the fascia was incised with a new knife just above any perforators from the IT band. The TFL muscle belly was bluntly dissected away from the fascia and moved laterally. The fat between TFL and rectus was identified to ensure the dissection was not within the TFL. Blunt dissection created space between abductors and the capsule and retractor was placed over the lateral femoral neck. The fibers of the rectus femoris tendon were identified and these were freed from the anterior capsule. A second cobra retractor was placed around the medial femoral neck. The TFL was further retracted laterally to show the deep fascia. Careful dissection through this layer identified three main crossing vessels of the lateral femoral circumflex. These were cauterized in multiple locations and then cut without any noticeable bleeding. The TFL was further released bluntly from the deep fascia to expose anterior hip capsule and fat The Sudarshan orthopaedic retractor was then placed beneath the TFL and against sartorius and medial soft tissues to protect and retract the soft tissues. A T-capsulotomy was then performed starting at the superior lateral acetabulum and moving distally to the intertrochanteric ridge. These capsular flaps were tagged with a No. 1 Ethibond and elevated from within. The capsular flaps were released to the shoulder of the lateral neck and to the lesser trochanter to give excellent visualization of the proximal femur. A neck osteotomy was performed using an oscillating saw based on preoperative te mplates. This cut started in the shoulder and of the lateral neck and exited medially. The saw was at all times directed medially to avoid injury to the greater trochanter. 6cm of traction was applied to the leg and the osteotomy opened. The femoral head was removed with a corkscrew, making sure to protect the TFL on its exit. This was measured on the back table to determing the starting reamer size. Portions of the rectus obscuring visualization were minimally elevated off the superior acetabulum. An anterior retractor was placed over the anterior wall between capsule and labrum and attached to the Gripper retraction system. A posterior retractor was placed similarly. This provided excellent visualization. The contents of the cotyloid fossa were removed with electrocautery and the labrum was removed with a knife. There was a notable floor osteophyte. 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 Acetabular reaming began with a 50mm reamer. This first reaming was directed anterior to posterior and medial to get down to the true floor. This was inspected and reamed until the true floor was reached. The anterior retractor was then released and entry and exit was provided by traction on the capsular flaps. I then reamed sequentially up to a 54mm reamer where good fit was obtained. The larger reamers were oriented based on anatomical reference of the anterior and lateral lucio to ensure proper abduction and anteversion. Positioning and size was confirmed with the fluoroscopy. A 54mm Depuy Carney acetabular component was selected. The acetabulum was reamed around the periphery with the selected acetabular size to prevent a rim fit. The deep tissues were irrigated. The acetabular component was then impacted in a position of about 40-45 degrees of abduction and 15-20 degrees of anteversion, using the patient?s anatomy as the ultimate landmark. Fluoroscopy was used to confirm this. There was excellent executive asst of the acetabular component and the inserting handle was removed. The acetabular liner, Depuy [id number] polyethylene liner, was inserted and lined up with the tines of the acetabular component. There was no soft tissue interposition. The liner was then impacted into position and confirmed to be well-seated. A portion of the pam-articular cocktail was then injected around the acetabulum into the capsule and periosteum. This cocktail consisted of 50cc of 0.25% Bupivicaine and 20cc of Exparel, expanded to a total of 120cc. Traction was released from the femur. The leg was rotated to 120 degrees. Any remaining medial capsule was released until the lesser trochanter was easily palpable. A Gamboa retractor was placed medially. The lateral capsule was further released into the shoulder to allow access to the greater trochanter. A Gamboa retractor was placed over the greater trochanter which allowed the trochanter to flip in front of the capsule for excellent exposure. The leg was brought down into maximal extension and 20 degrees of adduction while ensuring there was no impingement on the acetabulum. Any remnant capsule within the trochanter was released. Piriformis and obturator externis were identified and protected. There was excellent access to the proximal femur. The lateral neck remnant was removed with a rongeur. A blunt canal probe was used to identify the canal and trajectory for later broaching. A box osteotome initiated the broach course. A small curved rasp and a curved curette were used to work laterally. Broaching then began with a size 8 Corail broach. This was inserted manually around the trochanter and into the canal before mallet blows. The broach was seated to a few millimeters below the cut level based on the neck cut and the preoperative template. Sequential broaching was continued with the [employer] pneumatic broaching device until a tight fit was obtained with good rotational control of the femur. A trial standard neck was inserted along with a +5 trial head. The leg was brought out of extension and adduction and then reduced with traction and internal rotation. The leg was stable anteriorly in a position of 30 degrees of extension and 90 degrees of external rotation. Fluoroscopy was used to ensure there was no fracture and the stem was seated well. Leg lengths were checked with an AP pelvis and pelvic reference points. 24h00 navigation system was used to confirm appropriate positioning and leg length and offset. There was slightly under offset and leg length which would be improved with 8.5mm head Once content with the desired offset and leg lengths, the leg was brought back into extension, external rotation and adduction. The periosteum and surrounding tissue was injected with remaining portion of the pam-articular cocktail. The proximal femur was irrigated as well as the deep tissues. The [employer] Corail standard collared stem, size 15, was then manually inserted into the proximal femur making sure to control rotation. It was then malleted into position with light blows, giving breaks to allow bone expansion and decrease risk of fracture. The selected Depuy Altrx Ceramic Head, size 36+8.5mm, was then placed onto the clean and dry trunnion and secured with impaction onto the tapered fit. The leg was brought back out of extension and adduction and reduced with traction and internal rotation. Stability was confirmed with no shuck at 90 degrees of external rotation and 30 degrees of extension. No impingement through range of motion arc. Final x-ray images were obtained with fluoroscopy to confirm adequate positioning and no intraoperative fracture. The deep tissues were thoroughly irrigated with Irrisept chlorhexadine solution. The second dose of TXA 1g was administered intravenously.The capsule was then reapproximated with the previously placed Ethibond sutures. The TFL fascia was finally closed with a No. 2 Stratafix, barbed suture. Deep tissues were then reapproximated with 0 Vicryl and a running 2-0 Vicryl. The skin was closed with a running 4-0 Monocryl in a subcuticular fashion. This was reinforced with skin glue. A Mepilex silver dressing was applied. RIGHT Side Keeping the back table sterile, the drapes were removed, light handles changed, and fluoroscopy switched rooms sides. The arch table was disconnected and the legs were placed back onto the bed extension. The boots were switched, placing the operative side into ARCH table attachment and the other boot into the well leg de anda. A preoperative AP pelvis was obtained to serve as a reference for determining leg lengths. The right leg was then prepped with Chloraprep and draped in a standard fashion. A second prep with Chloraprep was performed prior to placement of a shower-curtain type drape with Iodine impregnated skin protection. A timeout was once again performed to ensure that there were no issues to proceed. An obliquely oriented incision was made starting lateral to the ASIS and running distal over the Tensor Fascia Sis (TFL) muscle belly toward the fibular head, approximately 10cm. The skin and soft tissue was dissected sharply, through Sharon?s fascia, and to the fascia of the TFL. With the fascia and superior border of the IT band identified, the fascia was incised with a new knife just above any perforators from the IT band. The TFL muscle belly was bluntly dissected away from the fascia and moved laterally. The fat between TFL and rectus was identified to ensure the dissection was not within the TFL. Blunt dissection created space between abductors and the capsule and retractor was placed over the lateral femoral neck. The fibers of the rectus femoris tendon were identified and these were freed from the anterior capsule. A second cobra retractor was placed around the medial femoral neck. The TFL was further retracted laterally to show the deep fascia. Careful dissection through this layer identified three main crossing vessels of the lateral femoral circumflex. These were cauterized in multiple locations and then cut without any noticeable bleeding. The TFL was further released bluntly from the deep fascia to expose anterior hip capsule and fat The Sudarshan orthopaedic retractor was then placed beneath the TFL and against sartorius and medial soft tissues to protect and retract the soft tissues. A T-capsulotomy was then performed starting at the superior lateral acetabulum and moving distally to the intertrochanteric ridge. These capsular flaps were tagged with a No. 1 Ethibond and elevated from within. The capsular flaps were released to the shoulder of the lateral neck and to the lesser trochanter to give excellent visualization of the proximal femur. A neck osteotomy was performed using an oscillating saw based on preoperative templates. This cut started in the shoulder and of the lateral neck and exited medially. The saw was at all times directed medially to avoid injury to the greater trochanter. 6cm of traction was applied to the leg and the osteotomy opened. The femoral head was removed with a corkscrew, making sure to protect the TFL on its exit. This was measured on the back table to determing the starting reamer size. Portions of the rectus obscuring visualization were minimally elevated off the superior acetabulum. An anterior retractor was placed over the anterior wall between capsule and labrum and attached to the Gripper retraction system. A posterior retractor was placed similarly. This provided excellent visualization. The contents of the cotyloid fossa were removed with electrocautery and the labrum was removed with a knife. There was a notable floor osteophyte. 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 Acetabular reaming began with a 50mm reamer. This first reaming was directed anterior to posterior and medial to get down to the true floor. This was inspected and reamed until the true floor was reached. The anterior retractor was then released and entry and exit was provided by traction on the capsular flaps. I then reamed sequentially up to a 54mm reamer where good fit was obtained. The larger reamers were oriented based on anatomical reference of the anterior and lateral lucio to ensure proper abduction and anteversion. Positioning and size was confirmed with the fluoroscopy. A 54mm Depuy Carney acetabular component was selected. The acetabulum was reamed around the periphery with the selected acetabular size to prevent a rim fit. The deep tissues were irrigated. The acetabular component was then impacted in a position of about 40-45 degrees of abduction and 15-20 degrees of anteversion, using the patient?s anatomy as the ultimate landmark. Fluoroscopy was used to confirm this. There was excellent executive asst of the acetabular component and the inserting handle was removed. The acetabular liner, Depuy [id number] polyethylene liner, was inserted and lined up with the tines of the acetabular component. There was no soft tissue interposition. The liner was then impacted into position and confirmed to be well-seated. A portion of the pam-articular cocktail was then injected around the acetabulum into the capsule and periosteum. This cocktail consisted of 50cc of 0.25% Bupivicaine and 20cc of Exparel, expanded to a total of 120cc. Traction was released from the femur. The leg was rotated to 120 degrees. Any remaining medial capsule was released until the lesser trochanter was easily palpable. A Gamboa retractor was placed medially. The lateral capsule was further released into the shoulder to allow access to the greater trochanter. A Gamboa retractor was placed over the greater trochanter which allowed the trochanter to flip in front of the capsule for excellent exposure. The leg was brought down into maximal extension and 20 degrees of adduction while ensuring there was no impingement on the acetabulum. Any remnant capsule within the trochanter was released. Piriformis and obturator externis were identified and protected. There was excellent access to the proximal femur. The lateral neck remnant was removed with a rongeur. A blunt canal probe was used to identify the canal and trajectory for later broaching. A box osteotome initiated the broach course. A small curved rasp and a curved curette were used to work laterally. Broaching then began with a size 8 Corail broach. This was inserted manually around the trochanter and into the canal before mallet blows. The broach was seated to the neck cut level based on the neck cut and the preoperative template. Sequential broaching was continued with the [employer] pneumatic broaching device until a tight fit was obtained with good rotational control of the femur. A trial standard neck was inserted along with a +8.5 trial head. The leg was brought out of extension and adduction and then reduced with traction and internal rotation. The leg was stable anteriorly in a position of 30 degrees of extension and 90 degrees of external rotation. Fluoroscopy was used to ensure there was no fracture and the stem was seated well. Leg lengths were checked with an AP pelvis and pelvic reference points. 24h00 navigation system was used to confirm appropriate positioning and leg length and offset. Once content with the desired offset and leg lengths, the leg was brought back into extension, external rotation and adduction. The periosteum and surrounding tissue was injected with remaining portion of the pam-articular cocktail. The proximal femur was irrigated as well as the deep tissues. The Depuy Corail standard collared stem, size 15, was then manually inserted into the proximal femur making sure to control rotation. It was then malleted into position with light blows, giving breaks to allow bone expansion and decrease risk of fracture. The selected Depuy Altrx Ceramic Head, size 36+8.5mm, was then placed onto the clean and dry trunnion and secured with impac tion onto the tapered fit. The leg was brought back out of extension and adduction and reduced with traction and internal rotation. Stability was confirmed with no shuck at 90 degrees of external rotation and 30 degrees of extension. No impingement through range of motion arc. Final x-ray images were obtained with fluoroscopy to confirm adequate positioning and no intraoperative fracture. The deep tissues were thoroughly irrigated with Irrisept chlorhexadine solution. The second dose of TXA 1g was administered intravenously.The capsule was then reapproximated with the previously placed Ethibond sutures. The TFL fascia was finally closed with a No. 2 Stratafix, barbed suture. Deep tissues were then reapproximated with 0 Vicryl and a running 2-0 Vicryl. The skin was closed with a running 4-0 Monocryl in a subcuticular fashion. This was reinforced with skin glue. A Mepilex silver dressing was applied. At the end of the case, all counts were correct. Gregg was transferred to the hospital bed without difficulty and suffering no apparent complication. Gregg has a good prognosis. Physical therapy will start today and without restrictions, weight-bearing as tolerated. Aspirin 81mg BID will be used for DVT prophylaxis.
[2020-04-11] MEDS: ceFAZolin 1 GM/50 ML BAG IVPB (13:49)
--- NOTE | 2020-04-11 14:32 | W.PM.DS.N ---
Date of service: 04/11/20 Time of Service: 16:50 DS: Diagnosis Discharge Diagnosis (1) Osteoarthritis of right hip: Status: Chronic (2) Osteoarthritis of left hip: Status: Chronic Discharge Plan Disposition Patient Disposition: HOME Condition: Good Discharge Details Reason For Visit: BILAT HIP Admit Date/Time: 04/11/20 06:04 Admit Provider: Zurdo Daniel Attending Provider: Zurdo Daniel [facility] Course: Patient was admitted to the medical/surgical floor following the procedure. The surgery was tolerated well without any notable medical, surgical, or anesthetic complications. Mobilization began postoperatively. He was voiding spontaneously. Vitals were stable. Physical therapy worked with the patient and was cleared for discharge home. No acute medical issues. Pain was controlled on oral regimen. Home Meds and New Rx's Prescriptions: New celecoxib 200 mg capsule 200 mg PO BID PRN (Reason: pain) Qty: 60 RF: 1 aspirin 81 mg tablet,delayed release (DR/EC) 81 mg PO BID Qty: 60 RF: 0 acetaminophen 500 mg tablet 1,000 mg PO Q8H PRN (Reason: pain) Qty: 90 RF: 3 pantoprazole 40 mg tablet,delayed release (DR/EC) 40 mg PO DAILY Qty: 30 RF: 0 docusate sodium [Colace] 100 mg capsule 100 mg PO BID PRNQty: 10 RF: 0 oxycodone 5 mg tablet 5 mg PO Q4H Qty: 18 RF: 0 Continued tadalafil [Cialis] 20 mg tablet 20 mg PO DAILY PRNRF: 0 sildenafil 100 mg tablet 100 mg PO DAILY PRNRF: 0 alprazolam [Xanax] 0.25 MG tablet 0.25 mg PO BID PRNRF: 0 pravastatin 20 MG tablet 20 mg PO HS RF: 0 ha extract 500 mg Capsule 500 mg PO DAILY RF: 0 multivitamin with minerals [Men's One Daily] Tablet 1 tab PO DAILY RF: 0 docusate sodium 100 mg Tablet 100 mg PO DAILY PRNRF: 0 Discontinued meloxicam [Mobic] 7.5 mg tablet 7.5 mg PO DAILY PRNRF: 0 aspirin [Aspirin Childrens] 81 mg Tablet,Chewable 81 mg PO DAILY RF: 0 ibuprofen 600 mg tablet 600 mg PO TID PRNQty: 90 RF: 3 acetaminophen 500 mg capsule 1,000 mg PO Q8H PRN (Reason: pain) Qty: 90 RF: 0 Discharge Instructions Additional Instructions: Dr. Daniel's Total Hip Discharge Instructions Activity: The most important activity is to walk. You should try to take short walks a few times a day. You have no restrictions on movement or positioning, but do not try to force what you do. You will find some stiffness and weakness with hip flexion (lifting your knee). Do not try to strengthen this too early, continue to practice walking and stairs and this will come. - Outpatient physical therapy can be helpful to help return you to a normal gait and improve your flexibility and strength. This can start around 2 weeks. For most patients, it?s not necessary. Usually this is determined at the time of discharge or at the first post-operative visit. - You should wear the JOJO hose on both legs for 2 weeks. You may remove those at night. These prevent blood pooling and swelling. Dressing: Keep the surgical dressing in place for at least one week, although it may stay in place untill follow-up. It may get wet after 3 days but avoid soaking the dressing. If it gets wet, just lightly pat dry. Most people prefer to cover the dressing with some ClingWrap, Saran Wrap, to keep it dry. After the first week it may be removed if desired and then replaced with light gauze and tape or nothing. It is important to always keep some gauze or the dressing between skin folds, especially when you are sitting, so the incision is not folded over on itself at the belly fold. Medications: - You should take Tylenol (1000mg every 8 hours) and an anti-inflammatory Celebrex (200mg twice a day) as your primary pain control medications. If Celebrex is not covered or too expensive, you may take Ibuprofen 600mg three times a day in its place. - You have been prescribed a stronger pain medication Oxycodone for breakthrough pain, take as needed as prescribed. - You have also been prescribed a stomach acid reduction agent Pantoprozole to help reduce stomach acid and reflux. - You will be taking [Aspirin 81mg twice a day] for DVT prevention unless instructed otherwise. - If you have constipation you should take Colace or Miralax (both [id number]). It takes most people 3-4 days to have a bowel movement. Follow-up: 2 weeks. If you have any acute concerns or questions, please do not hesitate to contact the office at [phone]. You may contact Dr. Daniel with any questions after hours through the hospital at [phone] or on his cell phone at [phone]. Referrals: Zurdo Daniel MD [ [facility] STAFF PHYSICIAN] - Activity:: Activity as Tolerated Equipment/Supplies:: Walker Diet:: As Tolerated Discharge Orders Discharge Orders: Discharge Order (Routine); Ordered 04/11/20 Ordered By: Zurdo Daniel DS: Summary Status at Discharge Functional status at discharge: uses cane/walker Overall status at discharge: patient is progressing back to baseline Mental Status: mental status grossly normal Speech and Movement: speech and movement normal Mood: congruent mood Affect: normal affect Exam Psych Mental Status: mental status grossly normal Speech and Movement: speech and movement normal Mood: congruent mood Affect: normal affect DS: Data Vitals/I&O Vitals and I&O: Vital Signs Temperature 36.7 C 04/11/20 12:30 Pulse 47 L 04/11/20 12:30 Pulse Rhythm Regular 04/11/20 13:58 Respiratory Rate 13 04/11/20 12:30 Respiratory Effort Non-Labored 04/11/20 13:58 Respiratory Depth Normal 04/11/20 13:58 Respiratory Pattern Normal 04/11/20 13:58 Blood Pressure 102/56 L 04/11/20 12:30 Pulse Oximetry 99 04/11/20 12:30 Respiratory End-tidal CO2 33 04/11/20 12:30 Oxygen Delivery Method Nasal Cannula 04/11/20 12:30 Oxygen Flow Rate 2 04/11/20 12:30 Pain Level 2 04/11/20 13:49 Intake & Output 04/10/20 04/11/20 04/11/20 23:59 11:59 23:59 Intake Total 1140.667 / 1640.667 500 / 1640.667 Output Total 100 / 100 Balance 1040.667 / 1540.667 500 / 1540.667 Weight 85.4 kg Intake: IV 1140.667 / 1640.667 500 / 1640.667 Output: Urine 100 / 100 Other: Urine Color Pale Yellow Urine Appearance Clear Emesis Description None None PFSH Medical History Abnormal thyroid function test Reports currently being tested every 3 months Was previously questionable for Luana's Anxiety Arthritis of left acromioclavicular joint (01/23/18) 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/17) Cataracts, bilateral Depression Elevated PSA Pt reports had biopsy which was normal PSA monitored every 6 months 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) Hyperlipidemia Incomplete tear of left rotator cuff (12/03/17) Localized swelling of both lower extremities Has history of poor circulation and surgical history of bilateral leg vein stripping Wears compression stockings as needed Prostate cancer Right bundle branch block Rosacea Superior labrum yawzisas-ve-mfspfxano (SLAP) tear of left shoulder (12/03/17) Trigger finger, left ring finger Trochanteric bursitis of right hip Surgical History History of bursectomy From shoulder?unknown shoulder History of carpal tunnel release of both wrists History of cervical spinal surgery Anterior cervical discectomy and fusion (ACDF) History of lumbosacral spine surgery 3 surgeries in total involving laminectomy, correction disc and spinal stenosis involving L4-5 History of prostatectomy (~04/2019) History of repair of rotator cuff Open rotator cuff repair?unknown shoulder History of right inguinal hernia repair Reports having 2 surgeries History of vasectomy History of vein stripping Bilateral Status post left rotator cuff repair DOS: 07/14/18 Dr. 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
--- NOTE | 2020-04-11 15:06 | IN_ITS ---
Date of service: 04/11/20 Time of Service: 13:40 PT Notes Visit Reasons: BILAT HIP Physical Therapy Inpatient Initial Evaluation Date: 04/11/2020 Referring Doctor: Zurdo Daniel MD PT Orders: PT CONSULT: Status post Ortho surgery. Status post bilateral ROYAL. Precautions: Fall. Standard. WBAT on BLE. Patient Profile/Admitting Diagnosis: Ken is a 74-year-old male with a bilateral osteoarthritis of the hips status post bilateral total hip arthroplasty on postoperative day 0. PMHX: Medical History (Updated 04/05/20 @ 13:15 by Elizabeth Harris) Abnormal thyroid function test (Acute) Reports currently being tested every 3 months Was previously questionable for Luana's Anxiety (Chronic) Arthritis of left acromioclavicular joint (Acute 01/23/18) Arthritis of right elbow (Acute 12/03/17) Cataracts, bilateral (Chronic) Depression (Chronic) Elevated PSA (Chronic) Pt reports had biopsy which was normal PSA monitored every 6 months Entrapment of right ulnar nerve (Acute 12/03/17) Hyperlipidemia (Chronic) Incomplete tear of left rotator cuff (Acute 12/03/17) Localized swelling of both lower extremities (Chronic) Has history of poor circulation and surgical history of bilateral leg vein stripping Wears compression stockings as needed Prostate cancer (Chronic) Right bundle branch block (Chronic) Rosacea (Chronic) Superior labrum kwriknal-hp-whlpvcisl (SLAP) tear of left shoulder (Acute 12/03/17) Trigger finger, left ring finger (Acute) Trochanteric bursitis of right hip (Acute) Surgical History (Updated 04/05/20 @ 13:15 by Elizabeth Harris) History of bursectomy (Chronic) From shoulder?unknown shoulder History of carpal tunnel release of both wrists (Chronic) History of cervical spinal surgery (Chronic) Anterior cervical discectomy and fusion (ACDF) History of lumbosacral spine surgery (Chronic) 3 surgeries in total involving laminectomy, correction disc and spinal stenosis involving L4-5 History of prostatectomy (Chronic ~04/2019) History of repair of rotator cuff (Chronic) Open rotator cuff repair?unknown shoulder History of right inguinal hernia repair (Chronic) Reports having 2 surgeries History of vasectomy (Chronic) History of vein stripping (Chronic) Bilateral Status post left rotator cuff repair (Resolved) DOS: 07/14/18 Dr. Daniel Status post total knee replacement, right (Chronic) Reports 4 surgeries on right knee including total knee replacement in 2007 Status post trigger finger release (Chronic) Left ring finger Social History/Home Situation: Lives with significant other in a private home with 6 steps to enter. Independent with all indoor and outdoor using the single-point cane. Does archery as a hobby. 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 Equipment Owned/DME: Front wheeled walker Subjective: Reports back pain at 6/10 bilateral, hip pain at 2/10 and and burning pain in bilateral anterior thighs at 8/10, nurse Aldana made aware. However per nurse Aldana, patient refused to take pain pills until after patient sees how he does with a second session for walking and stairs training. Objective: General Observation: Bilateral JOJO is on. Cold pack to bilateral hips. Mepilex Ag over surgical incision. Mental Status: Alert and oriented numbness for Pain: 6/10 back pain, 2/10 bilateral hip pain, 8/10 but pain in the anterior thighs ROM: Right Upper Extremity: Shoulder Flexion WFL. Shoulder abduction WFL. Elbow flexion WFL. Wrist flexion WFL. Opening and closing of hand WFL. Left Upper Extremity: Shoulder Flexion WFL. Shoulder abduction WFL. Elbow flexion WFL. Wrist flexion WFL. Opening and closing of hand WFL. Right Lower Extremity: Hip flexion WFL. Hip abduction WFL. Knee flexion WFL. Ankle dorsiflexion WFL. Ankle plantarflexion WFL. Left Lower Extremity: Hip flexion WFL. Hip abduction WFL. Knee flexion WFL. Ankle dorsiflexion WFL. Ankle plantarflexion WFL. Strength: Right Upper Extremity: Shoulder flexors 4/5. Shoulder abductors 4/5. Elbow flexors 5/5. Elbow extensors 5/5. Senior Quality Manager strong. Left Upper Extremity: Shoulder flexors 4/5. Shoulder abductors 4/5. Elbow flexors 5/5. Elbow extensors 5/5. Senior Quality Manager strong. Right Lower Extremity: Hip flexors 4/5. Hip abductors 4/5. Knee flexors 5/5. Knee extensors 5/5. Ankle dorsiflexors 5/5. Ankle plantarflexors 5/5. Left Lower Extremity: Hip flexors 4/5. Hip abductors 4/5. Knee flexors 5/5. Knee extensors 5/5. Ankle dorsiflexors 5/5. Ankle plantarflexors 5/5. Sensation: Intact as to pain and pressure on bilateral lower extremities. Bed Mobility/Transfers: Supine to sit standby assist Sit to supine minimal assist to left LE due to pain Sit to stand standby assist Stand to sit standby assist Bed to chair standby assist Chair to bed standby assist Gait: Tolerated level surface ambulation from room 218 to the therapy room about 120 feet utilizing front wheeled walker with WBAT on BLE with small step height and step-to gait pattern with standby assist. Wheelchair follow and IV pole management provided by PT. Nurse Savanah helped intermediate through the walk to manage IV pole. With MESSI Alvarezah, patient tolerated up-and-down six 4-inch steps and four 6-inch step while holding onto bilateral rails with standby assist x 2 sets. MESSI Mary was able to assist patient with walking back to his room using same AD without any issues. Balance: Static Sitting: Normal Dynamic Sitting: Normal Static Standing: Fair Dynamic Standing: Fair Special Tests: Mobility Limitations Standardized Measure [facility] AM-PAC 6 clicks Basic Mobility Inpatient Short Form: Raw Score: 14 CMS Score: 61% deficit Informed Consent/Education: Patient instructed in purpose of PT consult and plan of care. HEP education and training done with patient as well. Assessment: Ken demonstrates significant functional mobility decline requiring the use of a front wheeled walker for all mobility ADL performance, decreased activity tolerance due to pain, impairment in gait pattern, difficulty with walking, and increased risk for falls due to postoperative status. Ken is a 74-year-old male with a bilateral osteoarthritis of the hips status post bilateral total hip arthroplasty on postoperative day 0. He will have the support of his significant other as he transitions back to home later today. Patient presents with clinical signs and symptoms consistent with current/admitting diagnoses that have resulted to mobility limitations, gait instability, generalized weakness, and impairment of motor control as demonstrated by the following impairment level findings: 1. Decreased strength to B hip major muscle groups 2. Impaired standing balance 3. Impaired activity tolerance 4. Associated hip, back, and thigh pain limiting activity tolerance Impairments are contributing to the following functional limitations: 1. Inability to safely ambulate without assistive device 2. Increase completion time for mobility ADL performance 3. Increased fall risk 4. Inability to negotiate steps alone without rails Patient is assessed as a [id number] moderate complexity based on the following: History: 74-year-old male with impairment level findings, functional limitations, and past medical history as indicated above Examination: Demonstrable impairment in strength, balance, and mobility level with underlying impairments and functional limitations as documented above Presentation: Stable Decision Makin moderate complexity Goals: N/A. PT eval and 1 treatment only. Plan of Care/Treatment Plan: N/A. PT eval and 1 treatment only. DISCHARGE RECOMMENDATIONS: Home when medically cleared by orthopedic surgeon. Outpatient PT services to facilitate return to premorbid independent level. TREATMENT CODE/TIME: Session 1??32215 x 25 minutes, 14184 x 20 minutes beginning at 13:40 p.m.. Session 2??[id number] x 24 minutes beginning at 15:06 PM. Thank you for the opportunity to participate in the care of this patient. Valerie Martinez PT, DPT, CLT [facility] [place], [place]
== END 2020-04-11 17:53 | disposition home or self-care (01) | DRG 462 ==
LOC: PDS 08:25 → MS 11:34
PROVIDERS: Admitting Provider Student in an Organized Health Care Education/Training Program; PCP Internal Medicine; Visit Provider Student in an Organized Health Care Education/Training Program
PROC: 0SR90JZ Replacement of Right Hip Joint with Synthetic Substitute, Open Approach (ICD-10-PCS; CPT 27130; principal; 2020-04-11 07:30)
DX: M16.11 Unilateral primary osteoarthritis, right hip (principal); M16.12 Unilateral primary osteoarthritis, left hip; M25.551 Pain in right hip; M25.552 Pain in left hip; Z85.46 Personal history of malignant neoplasm of prostate; Z96.643 Presence of artificial hip joint, bilateral
CPT/HCPCS: 27130; 20985; 97116; 97162; 97530; NC; 73501; J0690; J1885; J2250; J2370; J2405; J3490

== ENCOUNTER 2020-04-24 13:51 | Outpatient (CLI) | payer MEDICARE, BC, SELFPAY ==
--- NOTE | 2020-04-24 13:30 | DI.RAD_ITS ---
EXAM: XR HIP PELVIS ADULT BL INDICATION: f/u bilateral ROYAL. COMPARISON: CR XR PELVIS AP from 03/20/2020 RF XR HIP RT IN OR from 04/11/2020 RF XR HIP LT IN OR from 04/11/2020 TECHNIQUE: 2D digital imaging was performed. FINDINGS: The patient is status post placement bilateral hip prostheses. Alignment appears satisfactory. Ther e are no abnormal bony lucencies. There has been no gross change when compared with intraoperative i mages. DATA REPOSITORY: RADIATION DOSE DELIVERED:
== END 2020-04-24 14:11 ==
PROVIDERS: PCP Internal Medicine; Referring Provider Internal Medicine; Visit Provider Student in an Organized Health Care Education/Training Program
DX: Z96.643 Presence of artificial hip joint, bilateral (principal); M16.11 Unilateral primary osteoarthritis, right hip; M16.12 Unilateral primary osteoarthritis, left hip
CPT/HCPCS: 73521

== ENCOUNTER 2020-05-19 11:59 | Outpatient (CLI) | payer MEDICARE, BC, SELFPAY ==
--- NOTE | 2020-05-19 11:35 | DI.RAD_ITS ---
EXAM: XR KNEE RT 3V AP,LAT,SURINDER INDICATION: s/p right TKA. COMPARISON: None TECHNIQUE: 2D digital imaging was performed. FINDINGS: There is a total right knee prosthesis. The components appear satisfactorily aligned. No abnormal b rylee lucencies are seen. No joint effusion is visible. Impression: Unremarkable TKA. DATA REPOSITORY: RADIATION DOSE DELIVERED:
== END 2020-05-19 12:19 ==
PROVIDERS: PCP Internal Medicine; Referring Provider Internal Medicine; Visit Provider Student in an Organized Health Care Education/Training Program
DX: Z96.651 Presence of right artificial knee joint (principal); Z47.1 Aftercare following joint replacement surgery; Z96.643 Presence of artificial hip joint, bilateral; M25.361 Other instability, right knee
CPT/HCPCS: 73562; 99213

== ENCOUNTER → 2020-06-16 11:31 | Outpatient (BNVA) | payer MEDICARE, BC, SELFPAY | PROVIDERS: PCP Internal Medicine; Referring Provider Internal Medicine; Visit Provider Student in an Organized Health Care Education/Training Program | DX: M16.11 Unilateral primary osteoarthritis, right hip (principal); M16.12 Unilateral primary osteoarthritis, left hip; Z96.651 Presence of right artificial knee joint; Z47.1 Aftercare following joint replacement surgery; Z96.643 Presence of artificial hip joint, bilateral | CPT/HCPCS: 99211 ==

== ENCOUNTER 2020-08-28 15:20 | Outpatient (CLI) | payer MEDICARE, BC, SELFPAY ==
--- NOTE | 2020-08-28 14:50 | DI.RAD_ITS ---
EXAM: XR FOOT LT COMPLETE CLINICAL HISTORY: left foot pain. TECHNIQUE: 2D digital imaging was performed. COMPARISON: No exams were available for comparison FINDINGS: There is a moderate hallux valgus deformity. No acute fracture or dislocation is present. There is a small spur at the plantar surface of the calcaneus. There is an enthesophyte at the Achilles inser tion site. Degenerative changes are seen in the foot which are mild. Vascular calcifications are pr esent. There is overlapping of the 4th and 5th toes. IMPRESSION: DATA REPOSITORY: RADIATION DOSE DELIVERED:
== END 2020-08-28 15:40 ==
PROVIDERS: PCP Internal Medicine; Referring Provider Internal Medicine; Visit Provider Student in an Organized Health Care Education/Training Program
DX: M20.12 Hallux valgus (acquired), left foot; M77.32 Calcaneal spur, left foot; M19.072 Primary osteoarthritis, left ankle and foot; M20.5X2 Other deformities of toe(s) (acquired), left foot; M79.672 Pain in left foot; M17.12 Unilateral primary osteoarthritis, left knee; Z96.651 Presence of right artificial knee joint; M70.61 Trochanteric bursitis, right hip
CPT/HCPCS: 99215; 73630

== ENCOUNTER 2020-09-06 02:07 | Outpatient (CLI) | payer MEDICARE, BC, SELFPAY ==
--- NOTE | 2020-09-06 06:15 | DI.NM_ITS ---
EXAM: NM BONE SCAN 3 PHASE CLINICAL HISTORY: ? R TKA LOOSENING,s/p rt knee replacement, z96.651. TECHNIQUE: Injected Dose: 22.5 mCi Tc-99m MDP IV. Perfusion, blood pool and delayed images of the k nees as well as whole body images were performed. COMPARISON: CR XR KNEE RT 3V AP,LAT,SURINDER from 05/19/2020 CR XR KNEE RT 3V AP,LAT,SURINDER from 05/19/2020 FINDINGS: Perfusion: Symmetric. Blood Pool: Symmetric. Delayed: No focal area of intense suspicious uptake is seen around the right knee prosthesis. Mildly increased activity around the bilateral hip prostheses. Increased activity is also seen in sternocl avicular joints and lower lumbar spine, likely secondary to degenerative changes.. IMPRESSION: 1. No evidence of abnormal uptake around the right knee prosthesis.. DATA REPOSITORY:
== END 2020-09-06 02:08 ==
LOC: DI 02:08
PROVIDERS: PCP Internal Medicine; Visit Provider Student in an Organized Health Care Education/Training Program
DX: Z96.651 Presence of right artificial knee joint (principal)
CPT/HCPCS: 78315

== ENCOUNTER 2020-09-18 01:51 | Outpatient (CLI) | payer MEDICARE, BC, SELFPAY ==
--- NOTE | 2020-09-18 09:48 | DI.MRI_ITS ---
EXAM: MR LOWER JOINT LT WO CLINICAL HISTORY: INSTABILITY W/ WALKING STAIRS,primary oa LT KNEE,M17.12 TECHNIQUE: Multiplanar multisequence MRI of the knee was performed. FINDINGS: EFFUSION: There is a moderate-sized joint effusion. There is no Lassiter cyst in the medial popliteal f jerry. MARROW:There is no evidence of fracture nor bone contusion in the tibial plateau and femoral condyles nor in the fibular head. PATELLOFEMORAL COMPARTMENT: Some increased signal is noted at the insertion of the quadriceps on the anterosuperior patella but no high-grade tear. The patellar ligament is intact There is advanced full-thickness thinning of the retropatellar cartilage. There is a degenerative jean baptiste barticular cyst in the posterior mid patella which measures 6 x 5 by 5 millimeters.There is no intrao sseous signal to suggest recent patellar dislocation. There are no patellar retinacular tears. CRUCIATE LIGAMENTS: The anterior cruciate ligament is intact.Posterior cruciate ligament is intact. MEDIAL COMPARTMENT/MEDIAL MENISCUS: There is some mild myxoid degeneration signal in the posterior ho rn but no evidence of medial meniscal tear. Mild increased signal evident at the level of the root b ut no high-grade tear.. There are no chondral defects, osteochondral defects, subarticular marrow edema, nor osteophytes evid ent. MEDIAL COLLATERAL LIGAMENT: Intact LATERAL COMPARTMENT/LATERAL MENISCUS: Myxoid degeneration signal but no true meniscal tear.There is s ignal abnormality in the cartilage over the lateral femoral condyle, not associated with subjacent de generative cysts. Mild degenerative changes are noted in the cartilage over the lateral femoral cond yle. No degenerative subarticular edema nor osteochondral defect.No marginal osteophytes. ILIOTIBIAL BAND: Intact LATERAL COLLATERAL LIGAMENT COMPLEX: The fibular collateral ligament is intact. The biceps femoris t endon is intact.There is some fluid noted in the popliteus tendon-tenosynovitis but no tear of the te ndon nor abnormal musculotendinous junction signal abnormality. IMPRESSION: 1. There is advanced full-thickness narrowing of the retropatellar cartilage. There is also a degene rative 6 x 5 millimeters subarticular cyst in the posterior patella at this level. High-grade chondr omalacia. Also some thickening of the quadriceps tendon noted at its insertion on the anterosuperior patella but no tear at this level. Patellar ligament is unremarkable. No patellar retinacular tear s. No significant signal abnormality in the visualized vastus muscle group. 2. Myxoid degeneration noted in both menisci but without true meniscal tears nor extrusion. 3. Anterior and posterior cruciate ligaments are intact. Iliotibial band is intact 4. The medial collateral ligament. There is tenosynovitis it within the popliteus tendon sheath component of the lateral collateral liga ment complex. The fibular collateral ligament as well as the biceps femoris tendon components of the LCL complex are intact. There is also a moderate-sized joint effusion. DATA REPOSITORY:
== END 2020-09-18 01:52 ==
LOC: DI 01:51
PROVIDERS: PCP Internal Medicine; Visit Provider Student in an Organized Health Care Education/Training Program
DX: M25.462 Effusion, left knee (principal); M25.562 Pain in left knee; M17.12 Unilateral primary osteoarthritis, left knee; M22.42 Chondromalacia patellae, left knee
CPT/HCPCS: 73721

== ENCOUNTER → 2020-09-21 09:25 | Outpatient (BNVA) | payer MEDICARE, BC, SELFPAY | PROVIDERS: PCP Internal Medicine; Referring Provider Internal Medicine; Visit Provider Student in an Organized Health Care Education/Training Program | DX: M17.12 Unilateral primary osteoarthritis, left knee (principal); Z96.651 Presence of right artificial knee joint | CPT/HCPCS: 99441 ==

== ENCOUNTER → 2020-10-05 09:30 | Outpatient (BNVA) | payer MEDICARE, BC, SELFPAY | PROVIDERS: PCP Internal Medicine; Referring Provider Internal Medicine; Visit Provider Student in an Organized Health Care Education/Training Program | DX: M70.61 Trochanteric bursitis, right hip (principal); Z96.643 Presence of artificial hip joint, bilateral | CPT/HCPCS: 20610; J1040 ==

== ENCOUNTER → 2020-12-28 09:26 | Outpatient (BNVA) | payer MEDICARE, BC, SELFPAY | PROVIDERS: PCP Internal Medicine; Referring Provider Internal Medicine; Visit Provider Student in an Organized Health Care Education/Training Program | DX: M65.332 Trigger finger, left middle finger (principal) | CPT/HCPCS: 20550; J1030 ==

== ENCOUNTER 2021-04-09 03:43 | Outpatient (CLI) | payer MEDICARE, BC, SELFPAY ==
[2021-04-09 12:24] LABS: Source Nasal/Nares
[2021-04-09 15:51] LABS: COVID-19 PCR Negative (Negative)
== END 2021-04-09 03:44 | disposition home or self-care (01) ==
LOC: LBO 03:43
PROVIDERS: PCP Internal Medicine; Visit Provider Student in an Organized Health Care Education/Training Program
DX: Z20.822 Contact with and (suspected) exposure to COVID-19 (principal); Z01.818 Encounter for other preprocedural examination
CPT/HCPCS: 87635

== ENCOUNTER 2021-04-10 11:22 | Day surgery (SDC) | payer MEDICARE, BC, SELFPAY ==
--- NOTE | 2021-04-10 11:04 | W.PM.DSUDISC ---
Discharge Plan Disposition Patient Disposition: HOME Condition: Good Discharge Details Reason For Visit: Left Trigger Finger Release Attending Provider: Zurdo Daniel Primary Care Provider: Reji Adams Home Meds and New Rx's Prescriptions: No Action tadalafil [Cialis] 20 mg tablet 20 mg PO DAILY PRNRF: 0 sildenafil 100 mg tablet 100 mg PO DAILY PRNRF: 0 aspirin 81 mg tablet,delayed release (DR/EC) 81 mg PO DAILY RF: 0 alprazolam [Xanax] 0.25 MG tablet 0.25 mg PO BID PRNRF: 0 pravastatin 20 MG tablet 20 mg PO HS RF: 0 ha extract 500 mg Capsule 500 mg PO DAILY RF: 0 multivitamin with minerals [Men's One Daily] Tablet 1 tab PO DAILY RF: 0 acetaminophen 500 mg tablet 1,000 mg PO Q8H PRN (Reason: pain) Qty: 90 RF: 3 Discharge Instructions Stand Alone Forms: María Reyes Finger Release Referrals: Zurdo Daniel MD [ [facility] STAFF PHYSICIAN] - Activity:: Activity as Tolerated Remove Dressings/Wound Care:: 72 hours Shower/Bathe:: 72 hours Diet:: As Tolerated DS: Diagnosis Discharge Diagnosis (1) Trigger finger, left middle finger: Status: Acute
[2021-04-10 11:44] VITALS: BP 116/77; PULSE 67; RESP 16; TEMP 36.6; O2SAT 98
[2021-04-10] MEDS: Sodium Bicarbonate 50 MEQ/50 ML VIAL (13:49)
--- NOTE | 2021-04-10 19:50 | ROE_ITS ---
Date of service: 04/10/21 Time of Service: 13:50 Operative Note Operative Note DATE OF PROCEDURE: 04/10/21 PRE-OP DIAGNOSIS: Left Middle Finger Trigger Finger POST-OP DIAGNOSIS: same PROCEDURE: Trigger Finger Release - Left Middle Finger SURGEON: Zurdo Daniel ANESTHESIA TYPE: Local By Surgeon Refer to Anesthesia Record ESTIMATED BLOOD LOSS: 0 PATHOLOGY: none sent COMPLICATIONS: None Patient was transported to: same day Patient's condition: stable Indications: I have seen Ken in clinic for symptoms of a trigger finger. The catching, clicking, locking, and pain limited function. The diagnosis of trigger finger was evident. The symptoms had not responded to conservative measures. He had previous trigger finger releases with good results. I discussed trigger finger release with the patient. I reviewed the risks of the procedure to include, but not limited to, bleeding, infection, pain, stiffness, incomplete release, damage to nerves or vessels, continued catching, recurrence. Despite these risks, the patient elected to proceed. Findings: There was a tightened A1 cheikh which was released. The flexor tendons were inspected and the patient was able to move the finger without any catching, clicking, or locking. Procedure Description: Ken was greeted in the preoperative holding area where the correct side was identified and marked. The consent was reviewed with the patient and signed. All questions were answered. He was taken back to the operating room. The patient was placed into the supine position on the operating room table with the left arm on an arm board. All bony prominences were well padded. No prophylactic antibiotics were administered since this was a clean, elective hand surgical case. The left arm was then prepped with Chloraprep and draped in a standard fashion with stockinette and extremity drape. A timeout to confirm correct identity, side and site, procedure, allergies, anesthesia, and medical concerns was performed. The surgical site was marked as a longitudinal incision directly over the A1 cheikh of the involved digit. This was confirmed with palpation during finger flexion. This area, overlying the metacarpal head, was then anesthetized with 1% Lidocaine. The patient tolerated this well and once the anesthetic had setup, the procedure began. A longitudinal incision was made through skin only, approximately 1cm. The deep tissues were dissected bluntly. Once the A1 cheikh and flexor tendons were identified the soft tissue including neurovascular structures were retracted medially and laterally. There were no crossing structures over the A1 cheikh. The proximal edge of the cheikh was identified and the cheikh was incised with tenotomy scissors. There was a release of the tendons once this was fully released. The tendons were then removed from the wo und and inspected. Excess synovium was resected. The tendons were then returned and the patient was asked to move the finger into deep flexion and back to extension. There was no recreation of the pre-operative symptoms. The hand was then once more inspected for any A0 cheikh or area of possible constriction. The wound was then irrigated and the skin was closed with a 4-0 Nylon. This was dressed with gauze and a Conform dressing. The patient tolerated the procedure well and was returned to the Same Day Surgery area in a stable condition suffering no known complication.
== END 2021-04-10 14:15 | disposition home or self-care (01) ==
LOC: SUR 11:22
PROVIDERS: PCP Internal Medicine; Visit Provider Student in an Organized Health Care Education/Training Program
PROC: (CPT 26055; principal; 2021-04-10 15:00)
DX: M65.332 Trigger finger, left middle finger (principal)
CPT/HCPCS: 26055

== ENCOUNTER → 2021-04-19 09:59 | Outpatient (BNVA) | payer MEDICARE, BC, SELFPAY | PROVIDERS: PCP Internal Medicine; Referring Provider Internal Medicine | DX: Z47.89 Encounter for other orthopedic aftercare (principal); M65.332 Trigger finger, left middle finger ==

== ENCOUNTER → 2021-05-16 10:26 | Outpatient (BNVA) | payer MEDICARE, BC, SELFPAY | PROVIDERS: PCP Internal Medicine; Referring Provider Internal Medicine | DX: Z47.89 Encounter for other orthopedic aftercare (principal); M79.645 Pain in left finger(s) ==

== ENCOUNTER → 2021-06-01 11:20 | Outpatient (BNVA) | payer MEDICARE, BC, SELFPAY | PROVIDERS: PCP Internal Medicine; Referring Provider Internal Medicine; Visit Provider Student in an Organized Health Care Education/Training Program | DX: Z47.89 Encounter for other orthopedic aftercare (principal); M65.332 Trigger finger, left middle finger; M72.0 Palmar fascial fibromatosis [Dupuytren] | CPT/HCPCS: 20550 ==

== ENCOUNTER 2021-07-18 01:40 | Outpatient (CLI) | payer MEDICARE, BC, SELFPAY ==
--- NOTE | 2021-07-18 10:30 | DI.US_ITS ---
APPROVED REPORT EXAM: Comprehensive 2D, Doppler, and color-flow Echocardiogram Other Information Study Quality: Good Conclusion Normal left ventricular wall thickness and chamber size. Estimated ejection fraction is approximatel y 60%. Wall motion is normal Normal right ventricular size and systolic function Both atria are normal in size Mildly sclerotic trileaflet aortic valve without stenosis or regurgitation Borderline dilated ascending aorta measuring 3.5 cm Wall motion Left Ventricle The left ventricle is normal size. The left ventricular systolic function is normal. The left ventric ular ejection fraction is within the normal range. There is normal left ventricular wall thickness. T here is normal LV segmental wall motion. There is no ventricular septal defect visualized. LVEF is 58 %. Right Ventricle The right ventricle is normal size. The right ventricular systolic function is normal. The RVSP is 17 .9 mmHg. Atria The left atrium size is normal. The right atrium size is normal. The interatrial septum is intact wit h no evidence for an atrial septal defect. Aortic Valve The aortic valve is mildly sclerotic Aortic valve is trileaflet. There is no aortic valvular stenosis . No aortic regurgitation is present. Mitral Valve The mitral valve is normal in structure. No evidence of mitral valve stenosis. Trace to mild mitral r egurgitation. Tricuspid Valve The tricuspid valve is normal in structure. There is no tricuspid valve stenosis. Trace to mild tricu spid regurgitation. Pulmonic Valve The pulmonary valve is normal in structure. There is no pulmonic valvular stenosis. Trace pulmonic re gurgitation. Great Vessels The aortic root is normal in size. The ascending aorta is mildly dilated.3.5 cm Aortic arch is not we ll visualized. IVC is normal in size and collapses >50% with inspiration. Pericardium There is no pericardial effusion. 2D Dimensions IVSD d PLAX 0.84 cm M: 0.6-1.2 LV Vol A2C d MOD 128.8 mL LVPW d PLAX 0.87 cm M: 0.6 - 1.2 LV Vol A4C d MOD 100.3 mL LVID d PLAX 4.67 cm M: 4.2 - 5.8 LA vol/ BSA A2C s A-L 16.3 mL/m2 LVDs 3.30 cm M: 2.5 - 4.0 LA vol/ BSA A4C s A-L 12.8 mL/m2 Ao Root d 3.29 cm M: 3.1 - 3.7 LA Vol/ BSA Biplane s A-L 17.0 mL/m2 RA Area A4C 12.79 cm2 LA Area A4C s MOD 12.35 cm2 RA Vol/ BSA A4C s A-L 14.6 mL/m2 LA Area A2C s MOD 11.80 cm2 Ao Asc Diam d 3.50 cm M: 2.6 - 3.4 LV EF A4C MOD 57.3 % LV EF Teichholz 55.6 % LV EF A2C MOD 58.7 % LVEF (Roberto's) 59.00 % M: 52 - 72 LV EF Biplane MOD 59.0 % LV Volume 87.34 mL M: 62 - 150 SV 68.93 mL LV Volume Index 43.23 mL/m2 M: 34 - 74 SV Index 34.13 mL/m2 LV Vol Biplane MOD 116.8 mL FS 28.90 % M-Mode TAPSE 2.36 cm (M/F) >1.7 LV Diastology MV E' medial 0.072 (>0.07 m/s) E/A Ratio 0.6 LV E/e MED 5.45 (<14) MV E Vmax 0.39 (0.4-1.3 m/s) MV E' lateral 0.082 (>0.1 m/s) MV A Vmax 0.60 (0.4-1.3 m/s) LV E/e LAT 4.75 (<14) MV E/A Ratio 0.65 MV E/E' medial 5.45 MV E/E' lateral 4.76 Aortic Valve LVOT Area 3.97 cm2 AoV Area Vmax 3.62 cm2 LVOT Vmax 0.86 m/s AoV Area/ BSA (Vmax) 1.79 cm2/m2 LVOT Mean Charly. 0.51 m/s PAPITO Mean Charly. 3.17 cm2 LVOT Peak Grad 2.9 mmHg PAPITO Mean Charly. Index 1.57 cm2/m2 LVOT Mean Grad 1.3 mmHg LVOT VTI 0.181 m LVOT Diam s 2.20 cm AoV Vmax 0.94 m/s Velocity Ratio 0.91 AoV Mean Charly. 0.64 m/s AoV Peak Grad 3.5 mmHg LVOT SV 71.67 mL AoV Mean Grad 1.8 mmHg AoV VTI 0.185 m AoV Area VTI 3.88 cm2 AoV Area/ BSA (VTI) 1.92 cm/m2 Mitral Valve MV DT 493 (160-240 msec) MV PHT 143 msec MV Area PHT 1.54 cm2 Pulmonary Valve PV Vmax 0.88 (0.5-1.5 m/s) RVOT Peak Gr. 1.74 mmHg PV Peak Grad 3.1 mmHg RVOT Mean Gr. 0.80 mmHg PV Mean Grad 1.7 mmHg RVOT VTI 0.131 m PV VTI 0.178 m RVOT Vmax 0.66 m/s Tricuspid Valve TR Peak Grad 14.9 mmHg TR Vmax 1.93 m/s RA Pressure 3.00 mmHg RVSP (TR) 17.9 mmHg
== END 2021-07-18 02:00 ==
PROVIDERS: PCP Internal Medicine; Visit Provider Internal Medicine
DX: R06.02 Shortness of breath (principal); I35.8 Other nonrheumatic aortic valve disorders; I77.810 Thoracic aortic ectasia
CPT/HCPCS: 93306

== ENCOUNTER 2021-08-17 07:59 | Outpatient (CLI) | payer MEDICARE, BC, SELFPAY ==
--- NOTE | 2021-08-17 07:45 | RT.EKG_ITS ---
APPROVED REPORT Exam: Resting ECG Reason for Exam: SOB Patient Location: O HR:70 bpm ECG Measurements Heart Rate [address] 167 P 86 QRSd 158 QRS -77 QT 435 T 72 QTc 470 Conclusion Sinus rhythm...normal P axis, V-rate 50- 99 RBBB and LAFB...QRSd >120mS, axis(-40,240) Left ventricular hypertrophy...multiple voltage criteria
== END 2021-08-17 08:00 | disposition home or self-care (01) ==
LOC: DI.CARD 08:00
PROVIDERS: PCP Internal Medicine; Visit Provider Internal Medicine Cardiovascular Disease
DX: R06.02 Shortness of breath (principal); R53.83 Other fatigue; I45.19 Other right bundle-branch block; I44.4 Left anterior fascicular block; I51.7 Cardiomegaly
CPT/HCPCS: 93010

== ENCOUNTER → 2021-08-17 12:57 | Outpatient (BNVA) | payer MEDICARE, BC, SELFPAY | PROVIDERS: PCP Internal Medicine; Referring Provider Internal Medicine; Visit Provider Internal Medicine Cardiovascular Disease | DX: C61 Malignant neoplasm of prostate (principal); E78.5 Hyperlipidemia, unspecified; I45.10 Unspecified right bundle-branch block | CPT/HCPCS: 93005; 99203; 99214 ==

== ENCOUNTER → 2021-12-03 13:18 | Outpatient (BNVA) | payer MEDICARE, BC, SELFPAY | PROVIDERS: PCP Internal Medicine; Referring Provider Internal Medicine; Visit Provider Student in an Organized Health Care Education/Training Program | DX: M65.332 Trigger finger, left middle finger (principal) | CPT/HCPCS: 20550; J1030 ==

== ENCOUNTER 2022-02-02 12:07 | Emergency (ER) | payer MEDICARE, BC, SELFPAY ==
--- NOTE | 2022-02-02 12:15 | DI.RAD_ITS ---
Exam(s) XR HIP PELVIS ADULT BL EXAM: XR HIP PELVIS ADULT BL CLINICAL HISTORY: Right Hip Pain, Hx Bilateral hip Replacements. TECHNIQUE: 2D digital imaging was performed of the pelvis and bilateral hips. Images were obtained . AP pelvis and lateral views of both hips were obtained. COMPARISON: CR XR HIP PELVIS ADULT BL from 04/24/2020 FINDINGS: BONES: No acute fracture is present. No bony destructive lesion is seen. JOINTS: No dislocation present. There are stable bilateral total hip replacements. No evidence of gregorio rdware failure. SOFT TISSUE: Normal. IMPRESSION: No acute abnormality. DATA REPOSITORY: RADIATION DOSE DELIVERED:
[2022-02-02 12:21] VITALS: BP 108/68; PULSE 70; RESP 16; TEMP 36.6; O2SAT 98
--- NOTE | 2022-02-02 13:24 | ED.GENADUL_ITS ---
Discharge Plan Disposition Patient Disposition: HOME Condition: Stable Discharge Details Clinical Impression: Trochanteric bursitis, right hip, Hip pain, bilateral Primary Care Provider: Reji Admas ED Provider: Shannon Choi Home Meds and New Rx's Prescriptions: Continued tadalafil [Cialis] 20 mg tablet 20 mg PO DAILY PRN Rx Instructions: administer approximately 30min before sexual activity; do not use more than 1 dose per 24hrs aspirin 81 mg tablet,delayed release (DR/EC) 81 mg PO DAILY prednisone 5 mg tablet 5 mg PO DAILY abiraterone 500 mg tablet 1,000 mg PO DAILY Rx Instructions: must be taken on empty stomach, at least 1 hr before or 2 hrs after a meal/food Eligard (3 month) 22.5 mg syringe 22.5 mg subcut [id number] pravastatin 20 MG tablet 20 mg PO HS alprazolam [Xanax] 0.25 mg tablet 0.25 mg PO BID PRN Label Comments: pt. states he took two pills last night, 07/13/18 PCP noted indicate TID PRN RH ha extract 500 mg Capsule 500 mg PO DAILY Men's One Daily Tablet 1 tab PO DAILY acetaminophen 500 mg tablet 1,000 mg PO Q8H PRN (Reason: pain) Qty: 90 3RF Discharge Instructions Instructions: Hip Pain (ED) Additional Instructions: X-rays show intact hardware without evidence of any complications. Please follow-up with orthopedics within the next week or 2. You are placed on a care management list they will help you get an a follow-up appointment if needed. Please take the oxycodone with food if needed for moderate to severe pain. No driving or operate heavy machinery with this medication. Follow up with Ortho/ primary care provider in 3-5 days. Return to ED sooner if any worsening or concerns. Increase oral fluids. Referrals: Reji Adams [Primary Care Provider] - Zurdo Daniel MD [ [facility] STAFF PHYSICIAN] - 1 week Discharge Data Discharge Date/Time-TO BE ENTERED AT DEPARTURE: 02/02/22 13:50 Medical Decision Making 76-year-old male presents to the ER with chief complaint of hip instability which has been worsening over the last 2 to 3 days. He denies any falls or heavy lifting. He reports increased urinary frequency but had a normal urine done yesterday. X-rays of the hip obtained. Contacted Dr. Macedo is on-call for orthopedics. He is familiar with the patient as he GENERAL: Hip replacements previously. He is suspect trochanteric bursitis at this time. Imaging shows no significant bony abnormality does show some chronic degenerative changes. Hardware is intact. COMPARISON: CR XR HIP PELVIS ADULT BL 04/24/2020 1:43 PM FINDINGS: Bones/joints: Bilateral total hip arthroplasties. No evidence of hardware fracture or loosening. Multifocal pelvic enthesopathy. No acute fracture or dislocation. Soft tissues: Unremarkable. IMPRESSION: Intact hardware without evidence of complication. Patient given oxycodone 4 tablets discussed follow-up with orthopedics verbalized understanding. This text was generated using [employer] system, please disregard any oddities of phrase or misspellings. Medical Records Medical records reviewed: Yes I reviewed the patient's medical records. HPI General Mode of arrival: ambulatory . Date/Time Provider Initiated Documentation: 02/02/22 12:08 . Limitations to Documentation: no limitations . Information obtained by: patient, RN notes reviewed and old records reviewed . HPI Narrative: 76-year-old male presents to the ER with chief complaint of hip instability which has been worsening over the last 2 to 3 days. He denies any falls or heavy lifting. He reports increased urinary frequency but had a normal urine done yesterday. He does have multiple problems and has had arthritis, trochanteric bursitis of the right hip, knee replacement on the right side, lumbosacral spine surgery, he denies any loss of bowel or bladder control no saddle anesthesia no numbness tingling. He has been taking Tylenol with little to no relief. He does have muscle relaxers at home Related Data Home Medications Medication Instructions Recorded Confirmed pravastatin 20 mg tablet 20 mg PO HS 01/23/18 02/02/22 ha extract 500 mg capsule 500 mg PO DAILY 04/14/18 02/02/22 multivitamin with minerals (Men's 1 tab PO DAILY 07/13/18 02/02/22 One Daily tablet) tadalafil 20 mg tablet (Cialis) 20 mg PO DAILY PRN 03/20/20 02/02/22 acetaminophen 500 mg tablet 1,000 mg PO Q8H PRN pain #90 tabs 04/11/20 02/02/22 aspirin 81 mg tablet,delayed 81 mg PO DAILY 05/19/20 02/02/22 release alprazolam 0.25 mg tablet (Xanax) 0.25 mg PO BID PRN 08/13/21 02/02/22 abiraterone 500 mg tablet 1,000 mg PO DAILY 12/03/21 02/02/22 leuprolide (3 month) 22.5 mg (3 22.5 mg subcut [id number] 12/03/21 02/02/22 month) subcutaneous syringe (SANDOW) prednisone 5 mg tablet 5 mg PO DAILY 12/03/21 02/02/22 Previous Rx's Medication Instructions Recorded acetaminophen 500 mg tablet 1,000 mg PO Q8H PRN pain #90 tabs 04/11/20 Allergies Allergy/AdvReac Type Severity Reaction Status Date / Time Penicillins Allergy Severe throat Verified 02/02/22 12:23 swelling with lesions triamcinolone [From Kenalog] Allergy Verified 02/02/22 12:23 betamethasone AdvReac hiccups Verified 02/02/22 12:23 dexamethasone AdvReac hiccups Verified 02/02/22 12:23 General Stated Complaint: Orthopedic BERTRAND: 4 Review of Systems All systems reviewed & are unremarkable except as noted in HPI and below Constitutional Constitutional: Denies headache(s) ENT Ears, Nose, Mouth, and Throat: Denies headache(s), Denies neck pain and Reports disequilibrium Genitourinary Genitourinary: Denies urinary incontinence Musculoskeletal Musculoskeletal: Reports as per HPI, Reports back pain, Reports arthralgias (Right hip), Denies loss of height, Reports muscle weakness, Denies neck pain, Denies numbness, Reports radiating pain into limb (Right leg) and Reports stiffness Neurologic Neurologic: Denies headache(s), Denies numbness, Reports radicular pain and Reports disequilibrium PFSH All Active Problems (Updated 02/02/22 @ 13:44 by Shannon Choi NP) Hip pain, bilateral (Acute) Prostate cancer (Acute) 05/29/21 PCP note indicates recurrence of prostate CA RH Dupuytren's contracture of left hand (Acute) Trigger finger, left middle finger (Acute) s/p trigger finger release DOS: 04/10/21 Lateral meniscal tear (Acute) Ulnar neuropathy at elbow of left upper extremity (Acute) Primary osteoarthritis of left knee (Chronic) Acquired trigger finger of right ring finger (Acute) Trigger finger, left index finger (Acute) Trochanteric bursitis, right hip (Acute) Hallux valgus of left foot (Acute) Status post bilateral total hip replacement (Acute 04/11/20) History of prostatectomy (Chronic ~04/2019) Cataracts, bilateral (Chronic) Rosacea (Chronic) Localized swelling of both lower extremities (Chronic) Has history of poor circulation and surgical history of bilateral leg vein stripping Wears compression stockings as needed Abnormal thyroid function test (Acute) Reports currently being tested every 3 months Was previously questionable for Luana's Elevated PSA (Chronic) Pt reports had biopsy which was normal PSA monitored every 6 months Depression (Chronic) Anxiety (Chronic) Right bundle branch block (Chronic) Hyperlipidemia (Chronic) History of vasectomy (Chronic) History of right inguinal hernia repair (Chronic) Reports having 2 surgeries History of lumbosacral spine surgery (Chronic) 3 surgeries in total involving laminectomy, correction disc and spinal stenosis involving L4-5 History of cervical spinal surgery (Chronic) Anterior cervical discectomy and fusion (ACDF) Status post trigger finger release (Chronic) Left ring finger Status post total knee replacement, right (Chronic) Reports 4 surgeries on right knee including total knee replacement in 2006 History of carpal tunnel release of both wrists (Chronic) History of vein stripping (Chronic) Bilateral History of repair of rotator cuff (Chronic) Open rotator cuff repair?unknown shoulder History of bursectomy (Chronic) From shoulder?unknown shoulder Trochanteric bursitis of right hip (Acute) Trigger finger, left ring finger (Acute) Superior labrum [id number] (SLAP) tear of left shoulder (Acute 12/03/17) Incomplete tear of left rotator cuff (Acute 12/03/17) Entrapment of right ulnar nerve (Acute 12/03/17) Arthritis of right elbow (Acute 12/03/17) Arthritis of left acromioclavicular joint (Acute 01/23/18) Medical History Hx of prostatic malignancy Surgical History Status post left rotator cuff repair DOS: 07/14/18 Dr. Daniel Family History Mother Bone cancer Father , following complications from surgery Diabetes Pacemaker Brother Cerebral hemorrhage Brother Cardiovascular disease Social History Smoking/Tobacco Use Status: Former Tobacco Use Smokeless tobacco user: chewing tobacco Smoking risk assessment performed?: Yes Alcohol Intake: current Alcohol Intake frequency: holidays/special occasions only Alcohol type: beer Drug use: Never Substance use type: does not use Details: chew tobacco: this morning current occupation: [employer] Current gender identity: male Do you feel safe at home: Yes Do you feel safe in your relationship?: Yes Exam Narrative Exam Narrative: Constitutional: Alert and oriented x3. Appears stated age. Normal body habitus. Head: Normocephalic, no trauma. Chest: RRR, Normal S1, S2, distal pulses intact. Resp: Lungs clear to auscultation bilaterally, no wheezes, rales, or rhonchi. Abdomen: Soft, non-distended, Normoactive bowel sounds all 4 quads. Musculoskeletal: Complaining of right hip pain, multiple chronic musculoskeletal surgeries. Currently swelling noted to his bilateral lower extremity no pitting edema. Skin: No suspicious rashes or lesions. Capillary refill less than 2 sec. Neurologic: Cranial nerves II-XII intact. Alert and oriented x 3. Motor: No deficits noted. Sensory: Intact bilaterally all 4 extremities. Reflexes: DTR's intact bilaterally.. Denies any urinary incontinence or saddle anesthesia. Hematologic/Lymphatic: No ecchymosis, no lymphadenopathy. Course Vital Signs Vital signs: Vital Signs Temperature 36.6 C 02/02/22 12:21 Pulse 70 02/02/22 12:21 Respiratory Rate 16 02/02/22 12:21 Blood Pressure 108/68 02/02/22 12:21 Pulse Oximetry 98 02/02/22 12:21 Temperature 36.6 C 02/02/22 12:21 Temperature Source Temporal Artery Scan 02/02/22 12:21 Pulse 70 02/02/22 12:21 Respiratory Rate 16 02/02/22 12:21 Respiratory Effort 02/02/22 12:25 Blood Pressure 108/68 02/02/22 12:21 Blood Pressure Position Sitting 02/02/22 12:21 Pulse Oximetry 98 07/09/22 12:21 Oxygen Delivery Method Room Air 02/02/22 12:21 Oxygen Flow Rate 0 02/02/22 12:21 Pain Level 6 02/02/22 12:21
--- NOTE | 2022-02-02 13:35 | DI.VRAD_ITS ---
PROCEDURE INFORMATION: Exam: XR Right Hip Exam date and time: 02/02/2022 12:44 PM Age: 76 years old Clinical indication: Hip pain; Bilateral; Prior surgery TECHNIQUE: Imaging protocol: Radiologic exam of the Right hip. Views: 2 or 3 views hip with pelvis when performed. COMPARISON: CR XR HIP PELVIS ADULT BL 04/24/2020 1:43 PM FINDINGS: Bones/joints: Bilateral total hip arthroplasties. No evidence of hardware fracture or loosening. Multifocal pelvic enthesopathy. No acute fracture or dislocation. Soft tissues: Unremarkable. IMPRESSION: Intact hardware without evidence of complication. Dictated and Authenticated by: Devonte Vides MD. Ordering:YEFRI Ortega MD
== END 2022-02-02 13:50 | disposition home or self-care (01) ==
PROVIDERS: Emergency Provider Registered Nurse Emergency; PCP Internal Medicine
DX: M70.61 Trochanteric bursitis, right hip (principal); M25.551 Pain in right hip; M25.552 Pain in left hip
CPT/HCPCS: 73521; 99283

== ENCOUNTER → 2022-02-11 14:58 | Outpatient (BNVA) | payer MEDICARE, BC, SELFPAY | PROVIDERS: PCP Student in an Organized Health Care Education/Training Program; Referring Provider Internal Medicine; Visit Provider Student in an Organized Health Care Education/Training Program | DX: M54.50 Low back pain, unspecified (principal); M70.61 Trochanteric bursitis, right hip; M70.62 Trochanteric bursitis, left hip | CPT/HCPCS: 20610; J1040 ==

== ENCOUNTER → 2022-03-13 12:46 | Outpatient (CLI) | payer MEDICARE, BC, SELFPAY ==
--- NOTE | 2022-03-13 15:00 | DI.MRI_ITS ---
Exam(s) MR LOWER JOINT RT WO EXAM: MR LOWER JOINT RT WO CLINICAL HISTORY: cont right hip pain,m70.61,trochanteric bursitis rt hip. TECHNIQUE: Multiplanar multisequence MRI was performed. COMPARISON: No exams were available for comparison FINDINGS: MR examination of the hip was performed according to the usual protocol. Note is made of markedly abnormal signal in the sacral ala bilaterally, raising the possibility stres s injury, no definite fracture plane identified by MR criteria. Note is also made of abnormal signal in the pubic bones adjacent to the symphysis bilaterally consistent with pubic ramus insufficiency f ractures. No other significant bony signal abnormality seen. Bilateral hip replacements noted in position no si gnificant increased signal adjacent to the prostheses. On the right, there is mildly abnormal signal in gluteus ludin muscle and tendon with slightly incr eased signal adjacent to IT band adjacent to the greater trochanter of the femur consistent with a mi ld bursitis. Gluteus medius and minimus show minimally abnormal signal consistent with slight inflamm ation. No other significant musculotendinous signal abnormality seen. No ligamentous abnormality. No significant pelvic or inguinal adenopathy. Urinary bladder and visualized bowel appear grossly in tact. IMPRESSION: The appearance in the region of the right hip is suggestive mild trochanteric/gluteus ludin bursiti s with evidence of mild inflammation in gluteus ludin, minimus, and medius muscles and tendons. No significant tendinous tear identified. Note is also made of markedly abnormal signal in the sacral ala adjacent to the SI joints bilaterally , findings are suggestive of sacral insufficiency fractures. Abnormal signal also noted bilaterally in pubic rami adjacent to pubic symphysis consistent with insu fficiency fractures. DATA REPOSITORY:
== END ==
PROVIDERS: PCP Student in an Organized Health Care Education/Training Program; Visit Provider Student in an Organized Health Care Education/Training Program
DX: M25.551 Pain in right hip (principal); M70.61 Trochanteric bursitis, right hip; R93.7 Abnormal findings on diagnostic imaging of other parts of musculoskeletal system; M53.3 Sacrococcygeal disorders, not elsewhere classified
CPT/HCPCS: 73721

== ENCOUNTER → 2022-06-12 02:12 | Outpatient (CLI) | payer MEDICARE, BC, SELFPAY ==
--- NOTE | 2022-06-12 06:45 | DI.NM_ITS ---
Exam(s) NM BONE SCAN 3 PHASE EXAM: NM BONE SCAN 3 PHASE CLINICAL HISTORY: continued pain in bilateral hips,m25.559,artificial hip joint, Z96.649. TECHNIQUE: Injected Dose: 20 mCi Tc-99m MDP COMPARISON: CR,XR XR HIP PELVIS ADULT BL from 02/02/2022 MR MR LOWER JOINT RT WO from 03/13/2022 FINDINGS: Perfusion: Symmetric. Blood Pool: Symmetric. Delayed: Photopenic areas in the both femoral heads and right knee consistent with joint prostheses. Areas of symmetric increased activity in the bilateral sacrum consistent with previously noted stres s or insufficiency fractures seen on prior MRI.. Increased activity in the pubic symphysis, also con sistent with fractures seen on prior MRI. Tiny focus of increased activity seen in the right aceta bulum adjacent to the acetabular component. IMPRESSION: 1. Small focus of increased activity in the right superomedial acetabulum could represent loosening o r possibly related to additional area of fracture. 2. Bilateral sacral and pubic symphysis uptake consistent with fractures noted on prior MRI. DATA REPOSITORY:
== END ==
PROVIDERS: Visit Provider Student in an Organized Health Care Education/Training Program
DX: M25.551 Pain in right hip (principal); Z96.651 Presence of right artificial knee joint; M25.552 Pain in left hip
CPT/HCPCS: 78315

== ENCOUNTER → 2022-06-14 08:58 | Outpatient (BNVA) | payer MEDICARE, BC, SELFPAY | PROVIDERS: PCP Internal Medicine; Referring Provider Student in an Organized Health Care Education/Training Program; Visit Provider Student in an Organized Health Care Education/Training Program | DX: Z96.641 Presence of right artificial hip joint (principal); Z85.46 Personal history of malignant neoplasm of prostate; M70.61 Trochanteric bursitis, right hip | CPT/HCPCS: 99213 ==

== ENCOUNTER → 2022-07-30 11:15 | Outpatient (BNVA) | payer MEDICARE, BC, SELFPAY | PROVIDERS: PCP Internal Medicine; Referring Provider Internal Medicine; Visit Provider Student in an Organized Health Care Education/Training Program | DX: M70.61 Trochanteric bursitis, right hip (principal) | CPT/HCPCS: 99214 ==

== ENCOUNTER 2022-08-22 11:49 | Day surgery (SDC) | payer MEDICARE, BC, SELFPAY ==
[2022-08-22] VITALS (9 sets, daily range): BP systolic 90–126; BP diastolic 46–97; PULSE 57–75; RESP 10–21; TEMP 36.4–36.5; O2SAT 97–100; BMI 27.0
--- NOTE | 2022-08-22 06:33 | ANES.PREOP_ITS ---
General Info Date of Service Date Performed: 08/22/22 Height: 5 ft 10.5 in Weight: 86.636 kg Body Mass Index (BMI): 27.0 Surgical Procedure: Operation Date: 08/22/22 14:20 Proposed Procedure Side Surgeon p Endoscopic Iliotibial Band Release w/ Trochanteric Bursecetomy, Possible Gluteal Tendon Repair Right Tyler Tobar MD Meds Allergies and Home Medications Allergies Allergy/AdvReac Type Severity Reaction Status Date / Time Penicillins Allergy Severe throat Verified 08/21/22 14:38 swelling with lesions triamcinolone [From Kenalog] Allergy Verified 08/21/22 14:38 betamethasone AdvReac hiccups Verified 08/21/22 14:38 dexamethasone AdvReac hiccups Verified 08/21/22 14:38 Home Medication Medication Instructions Recorded pravastatin 20 mg tablet 20 mg PO HS 01/23/18 ha extract 500 mg capsule 500 mg PO DAILY 04/14/18 multivitamin with minerals (Men's 1 tab PO DAILY 07/13/18 One Daily tablet) tadalafil 20 mg tablet (Cialis) 20 mg PO DAILY PRN 03/20/20 acetaminophen 500 mg tablet 1,000 mg PO Q8H PRN pain #90 tabs 04/11/20 aspirin 81 mg tablet,delayed 81 mg PO DAILY 05/19/20 release alprazolam 0.25 mg tablet (Xanax) 0.25 mg PO BID PRN 08/13/21 abiraterone 500 mg tablet 1,000 mg PO DAILY 12/03/21 leuprolide (3 month) 22.5 mg (3 22.5 mg subcut [id number] 12/03/21 month) subcutaneous syringe ([facility]) prednisone 5 mg tablet 5 mg PO DAILY 12/03/21 Current Visit Medications: Current Medications Generic Name Dose Route Start Last Admin Trade Name Freq PRN Reason Stop Dose Admin Ringer's Solution 1,000 mls @ 30 mls/hr 08/22/22 06:00 IV 09/20/22 23:59 INFUSION MAYURI Cefazolin Sodium/Dextrose 2 gm in 50 mls @ 100 mls/hr 08/22/22 06:00 Ancef Duplex IVPB 09/20/22 23:59 PREOP MAYURI IV Miscellaneous Supplies 1 each 08/22/22 06:00 Iv Access IV 09/20/22 23:59 DIRECTED MAYURI Sodium Chloride 0 ml 08/22/22 06:00 Normal Saline Flush 10 Ml Syr IV 09/20/22 23:59 PRN PRN Sodium Chloride 0 ml 08/22/22 06:00 Normal Saline 10 Ml Vial IJ 09/20/22 23:59 DIRECTED PRN Sterile Water 0 ml 08/22/22 06:00 Water,Injection,Sterile 10 Ml Vial IJ 09/20/22 23:59 DIRECTED PRN PFSH Active Problems Active Problems: Problem Status Onset Code Arthritis of left acromioclavicular joint 01/23/18 M19.012 Arthritis of right elbow 12/03/17 M19.021 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 Incomplete tear of left rotator cuff 12/03/17 M75.112 Superior labrum ghriyoxa-qw-sviidovac (SLAP) tear of left shoulder 12/03/17 S43.432A Trigger finger, left ring finger M65.342 Trochanteric bursitis of right hip M70.61 History of vein stripping Z98.890 History of carpal tunnel release of both wrists Z98.890 Status post trigger finger release Z98.890 Hyperlipidemia E78.5 Right bundle branch block I45.10 Anxiety F41.9 Depression F32.9 Elevated PSA R97.20 Abnormal thyroid function test Localized swelling of both lower extremities M79.89 Rosacea L71.9 Cataracts, bilateral H26.9 Lateral meniscal tear S83.289A Ulnar neuropathy at elbow of left upper extremity G56.22 Primary osteoarthritis of left knee M17.12 Acquired trigger finger of right ring finger M65.341 Trigger finger, left index finger M65.322 Prostate cancer C61 History of prostatectomy ~04/2019 Z90.79 Hallux valgus of left foot M20.12 Trochanteric bursitis, right hip M70.61 Dupuytren's contracture of left hand M72.0 Low back pain M54.50 Trochanteric bursitis of left hip M70.62 Pain in hip region after hip replacement M25.559, Z96.649 Medical History Medical History (Updated 08/21/22 @ 14:36 by Tito Dietrich) History of chronic constipation Per pt. 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 Daniel Status post total knee replacement, right Reports 4 surgeries on right knee including total knee replacement in 2006 Trigger finger, left middle finger s/p trigger finger release DOS: 04/10/21 Tobacco Smoking/Tobacco Use Status: Current every day Tobacco Type: smokeless tobacco Smokeless tobacco user: chewing tobacco Alcohol Alcohol Intake: current Alcohol intake frequency: holidays/special occasions only Alcohol type: beer Substance Use Substance use: Never Substance use type: does not use Details: chew tobacco: this morning Vital Signs and Lab Results Lab Results Blood Type / Crossmatch: No Data to Display Complete Blood Count: No Data to Display Complete Metabolic Panel: No Data to Display Liver Function Panel: No Data to Display Coagulation Panel: No Data to Display Cardiac Panel: No Data to Display Arterial Blood Gas: No Data to Display Venous Blood Gas: No Data to Display Pancreas Panel: No Data to Display Thyroid Panel: No Data to Display Infectious Disease: No Data to Display Blood Cultures: No Data to Display Toxicology Panel: No Data to Display Imaging and Studies Imaging and Studies Study information below may be from another EMR and interpreted by another provider. Please see original notes in EMR for more complete details. EKG Summary: (08/17/21) Sinus rhythm...normal P axis, V-rate 50- 99 RBBB and LAFB...QRSd >120mS, axis(-40,240) Left ventricular hypertrophy...multiple voltage criteria Echocardiogram Summary: (07/18/21) Normal left ventricular wall thickness and chamber size. Estimated ejection fraction is approximately 60%. Wall motion is normal Normal right ventricular size and systolic function Both atria are normal in size Mildly sclerotic trileaflet aortic valve without stenosis or regurgitation Borderline dilated ascending aorta measuring 3.5 cm Anesthesia Assessment and Plan Anesthesia History Personal History: No History of Anesthesia Complications Family History: No Family History of Anesthesia Complications Exercise Tolerance Exercise Tolerance: Metabolic Equivalents>4 Pertinent Negatives Pertinent Negatives: No Symptoms of GERD, No Major Cardiovascular Symptoms or Complaints, No Major Pulmonary Symptoms or Complaints and No History of CVA/TIA Cardiac & Pulmonary Exam Cardiac Exam: Normal S1/S2 Heart Sounds Pulmonary Exam: Clear Bilateral Breath Sounds Implantable Cardiac Device Does patient have a Pacemaker or an ICD?: No Airway Exam Known Difficult Airway: No Mallampati Class: 3 Mouth Opening: Normal (> 3cm) Thyromental Distance: Greater than 3 cm Facial Hair: Full Marie Neck Range of Motion: Limited ROM and History of Cervical Fusion Neck Circumference: Normal Teeth Condition: Generalized Poor Dentition ASA Classification ASA Score: ASA 3 Emergency Case?: No NPO Status NPO Status: NPO Clears >2 hours, Solids >8 hours Anesthesia Plan Resuscitation Status: Full Code Anesthesia Technique: General Anesthesia Airway Planned: LMA Monitors Used: Standard Monitors
--- NOTE | 2022-08-22 12:30 | DI.RAD_ITS ---
Exam(s) XR HIP RT IN OR EXAM: XR HIP RT IN OR CLINICAL HISTORY: endoscopic it band. TECHNIQUE: 2D digital imaging was performed. COMPARISON: No exams were available for comparison FINDINGS: Fluoroscopy fight a during right hip orthopedic procedure. Please refer to procedure report for deta ils. Radiation exposure index: Ka,r= 0.5477mGy IMPRESSION: DATA REPOSITORY: RADIATION DOSE DELIVERED:
[2022-08-22] MEDS: Lactated Ringers 1,000 ML 30 ML IV (13:15)
[2022-08-22] MEDS: ceFAZolin 2 GM/50 ML BAG IVPB (14:39)
[2022-08-22] MEDS: Bupivacaine 0.5% Pres-Free W/EPI 30 ML VIAL (15:24)
[2022-08-22] MEDS: EPINEPHrine 30 MG/30 ML VIAL (15:24)
[2022-08-22] MEDS: HYDROmorphone 2 MG/ML SYR IVP ×2 (15:59→16:14)
--- NOTE | 2022-08-22 16:15 | W.PM.DSUDISC ---
Date of service: 08/22/22 Time of Service: 17:00 Discharge Plan Disposition Patient Disposition: Home Discharge Details Attending Provider: Tyler Tobar Primary Care Provider: Reji Adams Home Meds and New Rx's Prescriptions: New oxycodone 5 mg tablet 5 - 10 mg PO Q4H MDD 30 mg PRN (Reason: moderate to severe pain) Qty: 9 0RF naproxen 250 mg tablet 250 - 500 mg PO BID PRNQty: 20 0RF Rx Instructions: take with a meal Continued tadalafil [Cialis] 20 mg tablet 20 mg PO DAILY PRN Rx Instructions: administer approximately 30min before sexual activity; do not use more than 1 dose per 24hrs aspirin 81 mg tablet,delayed release (DR/EC) 81 mg PO DAILY prednisone 5 mg tablet 5 mg PO DAILY abiraterone 500 mg tablet 1,000 mg PO DAILY Rx Instructions: must be taken on empty stomach, at least 1 hr before or 2 hrs after a meal/food Eligard (3 month) 22.5 mg syringe 22.5 mg subcut [id number] pravastatin 20 MG tablet 20 mg PO HS alprazolam [Xanax] 0.25 mg tablet 0.25 mg PO BID PRN Label Comments: pt. states he took two pills last night, 07/13/18 PCP noted indicate TID PRN RH ha extract 500 mg Capsule 500 mg PO DAILY Men's One Daily Tablet 1 tab PO DAILY acetaminophen 500 mg tablet 1,000 mg PO Q8H PRN (Reason: pain) Qty: 90 3RF Discharge Instructions Additional Instructions: Surgery: Right hip endoscopy with iliotibial band release and trochanteric bursectomy Activity: Weightbearing as tolerated. May use crutches or walker as needed for a few days. Gradually advance to full range of motion and activity over the next few weeks. A physical therapy prescription will be provided separately in the office at follow up if needed. Prescriptions: Resume aspirin 81mg daily tomorrow Naproxen 250 mg take 1-2 every 12 hours with a meal as needed for moderate pain Oxycodone 5 mg take 1-2 every 4-6 hours as needed for severe pain You may use muzg-onu-bpyasgy Tylenol (acetaminophen) as needed for mild pain. These pain medications may be taken all at once or in different combinations as needed. Also, recommend Colace (docusate) as a stool softener as surgery and pain medicine cause constipation. You may try hfxg-sml-rxqfglo diphenhydramine (Benadryl) 25-50 mg nightly as a sleep aid Dressings: Leave dressing in place for 3 days. May then remove and leave open to air or cover incisions with Band-Aids. May shower after 5 days. Follow-up: 10-[address] Tobar You may take off the leg compression stockings this evening at home. You may also leave them on a few days longer if you have a history of leg swelling or edema. Let us know right away if you develop any redness, drainage, fevers, chest pain, or trouble breathing. Do not drink alcohol or drive for at least 24 hours after anesthesia. Please call the office during business hours with any questions or concerns. Discharge Orders Discharge Orders: Discharge Order (Routine); Ordered 08/22/22 Ordered By: Tyler Tobar DS: Diagnosis Discharge Diagnosis (1) Trochanteric bursitis of right hip: Status: Acute
--- NOTE | 2022-08-22 16:18 | W.PM.OP ---
Date of service: 08/22/22 Time of Service: 16:18 Operative Note Operative Note DATE OF PROCEDURE: 08/22/22 PRE-OP DIAGNOSIS: Right hip 1. Iliotibial band syndrome 2. Trochanteric bursitis POST-OP DIAGNOSIS: same PROCEDURE: Right hip endoscopic 1. Iiliotibial band release, CPT# 09478 2. Trochanteric bursectomy, CPT# 90650 SURGEON: Tyler Tobar ANESTHESIA TYPE: Local By Surgeon and General LMA/ETT Refer to Anesthesia Record ESTIMATED BLOOD LOSS: 5 COMPLICATIONS: None Patient was transported to: PACU Patient's condition: stable Indications: Please see complete medical record for details. Findings: Thickened iliotibial band. Inflamed trochanteric bursitis. No significant gluteal tendon tearing. Procedure Description: In the operating room, general anesthesia was induced. The patient was positioned supine on the [facility] operating room table. All bony prominences were well-padded. Preoperative antibiotics were administered. The hip was prepped and draped in the usual sterile fashion. The correct patient, procedure, and side of the procedure were all verified prior to incision. 30 cc of 0.25% bupivacaine containing epinephrine was infiltrated about the subcutaneous tissues for the planned anterior lateral and distal anterolateral portals as well as deeply over the greater trochanter. A knife was used to incise the skin for the anterior lateral and distal anterolateral portals followed by blunt dissection subcutaneously. Under fluoroscopic guidance, a switching stick and arthroscope were inserted localizing the iliotibial band over the greater trochanter. Blunt dissection and the mechanical shaver were used to resect fat and overlying tissue about the center of the iliotibial band and carefully expose the anterior and posterior margins. Once there was adequate exposure of the IT band, the greater trochanter was again localized under fluoroscopic guidance with a spinal needle inserted through the skin down to bone. This central area was marked using the radiofrequency ablator. A [place] blade was brought in and used to create a 2 cm longitudinal incision in line with the IT band fibers as well as extending it in a cruciate fashion with 2 cm incisions anteriorly and posteriorly. The radiofrequency ablator was used to achieve hemostasis. The mechanical shaver was then used to debride the IT band released edges exposing the trochanteric bursa. The mechanical shaver was then used to excise the trochanteric bursa taking care to protect musculature about the margins of the greater trochanter as well as neurovascular structures especially posteriorly. There was excellent visualization of the vastus lateralis as well as gluteus medius confirming appropriate bursa excision. The hip was brought through range of motion including internal and external rotation and there was no impinging iliotibial band tissue or remaining pathologic bursa. The viewing and working portals were switched and appropriate IT band release, trochanteric bursa excision, and hemostasis confirmed. There was some thinning of the gluteus medius tendon posteriorly proximally but no significant tearing. There was no hypermobility or disruption of attachment to the greater trochanter. No tears of the minimus, vastus lateralis, or gluteus ludin. Suction was used to remove fluid from the endoscopic space. The portals were closed using 3-0 Monocryl in a buried fashion. Steri-Strips were applied over the incisions followed by Xeroform, 4 x 4 gauze, an ABD pad, and secured with tape. The patient awoke from anesthesia without complication and was transferred to the recovery room in a stable condition.
--- NOTE | 2022-08-22 16:40 | W.ANESPOSTOP ---
Postoperative Evaluation Date, Time and Location Date Performed: 08/22/22 Time Performed: 16:40 Patient Location: PACU Vital Signs Most Recent Imported Vital Signs: Most Recent Vital Signs Temp Pulse Resp BP Pulse Ox 36.4 C L 65 16 126/97 H 100 08/22/22 16:28 08/22/22 16:28 08/22/22 16:28 08/22/22 16:28 08/22/22 16:28 Pain Score Most Recent Pain Score: Most Recent Pain Score Pain Level 2 08/22/22 16:28 Assessment Mental Status: Awake (Alert & Oriented to Patient Baseline) Airway and Respiratory Function: Patent airway with normal (patient baseline) respiratory exam Cardiovascular Function: Hemodynamically Stable Hydration Status: Adequately Hydrated Nausea & Vomiting: No Nausea or Vomiting Pain: Pain is tolerable per patient Peripheral Nerve Block: Patient did not receive a nerve block Postoperative Comments:: Still having some spasming of his right thigh. Dr. Tobar aware and does not want to administer any muscle relaxants at this time. Trying heat and time. Patient agrees with the plan and wants to avoid medication as able.
== END 2022-08-22 17:20 | disposition home or self-care (01) ==
PROVIDERS: PCP Internal Medicine; Visit Provider Student in an Organized Health Care Education/Training Program
PROC: (CPT 29863; principal; 2022-08-22 14:00)
DX: M70.61 Trochanteric bursitis, right hip (principal); M76.31 Iliotibial band syndrome, right leg
CPT/HCPCS: 27062; 27305; 73501; J0690; J1170; J1885; J2405; J2704; J3010

== ENCOUNTER → 2022-09-04 10:43 | Outpatient (BNVA) | payer MEDICARE, BC, SELFPAY | PROVIDERS: PCP Internal Medicine; Referring Provider Internal Medicine; Visit Provider Student in an Organized Health Care Education/Training Program | DX: Z47.89 Encounter for other orthopedic aftercare (principal); M70.61 Trochanteric bursitis, right hip ==

== ENCOUNTER 2022-11-27 15:12 | Outpatient (CLI) | payer MEDICARE, BC, SELFPAY ==
--- NOTE | 2022-11-27 14:30 | DI.RAD_ITS ---
Exam(s) XR SHOULDER LT COMPLETE 2+V EXAM: XR SHOULDER LT COMPLETE 2+V CLINICAL HISTORY: Left shoulder pain. TECHNIQUE: 2D digital imaging was performed of the left shoulder. Two images were obtained. AP and axillary views were obtained. COMPARISON: No exams were available for comparison FINDINGS: BONES: No acute fracture is present. No bony destructive lesion is seen. JOINTS: No dislocation present. There are degenerative changes at the glenohumeral and acromioclavicu lar joint characterized by bony hypertrophy and joint space narrowing. SOFT TISSUE: Soft tissue calcifications are seen adjacent to the humeral head consistent with calcifi c tendinitis. IMPRESSION: Degenerative changes of the left shoulder. DATA REPOSITORY: RADIATION DOSE DELIVERED:
== END 2022-11-27 15:13 | disposition home or self-care (01) ==
LOC: DIORS 15:13
PROVIDERS: PCP Internal Medicine; Referring Provider Internal Medicine; Visit Provider Student in an Organized Health Care Education/Training Program
DX: M19.012 Primary osteoarthritis, left shoulder (principal)
CPT/HCPCS: 20610; 99213; 73030; J1030

== ENCOUNTER → 2022-12-30 07:54 | Outpatient (BNVA) | payer MEDICARE, BC, SELFPAY | PROVIDERS: PCP Internal Medicine; Referring Provider Internal Medicine; Visit Provider Student in an Organized Health Care Education/Training Program | DX: M19.042 Primary osteoarthritis, left hand (principal); M17.12 Unilateral primary osteoarthritis, left knee | CPT/HCPCS: 20610; J1040 ==

== ENCOUNTER → 2023-02-12 10:27 | Outpatient (BNVA) | payer MEDICARE, BC, SELFPAY | PROVIDERS: PCP Internal Medicine; Referring Provider Internal Medicine; Visit Provider Student in an Organized Health Care Education/Training Program | DX: M70.61 Trochanteric bursitis, right hip (principal) | CPT/HCPCS: 99213 ==

== ENCOUNTER → 2023-08-11 08:42 | Outpatient (BNVA) | payer MEDICARE, BC, SELFPAY | PROVIDERS: PCP Internal Medicine; Referring Provider Internal Medicine; Visit Provider Student in an Organized Health Care Education/Training Program | DX: M17.12 Unilateral primary osteoarthritis, left knee (principal) | CPT/HCPCS: 20610; J7318 ==

== ENCOUNTER 2023-11-17 05:06 | Outpatient (CLI) | payer MEDICARE, BC, SELFPAY ==
[2023-11-17 15:19] LABS: HCT 42.3 % (40.0-50.0); HGB 14.6 g/dL (13.5-17.5); MCH 31.7 pg (27.0-33.0); MCHC 34.5 % (32.0-36.0); MCV 92 fL (80-95); MPV 9.5 fL (8.0-11.0); Platelet Count 164 10^3/uL (130-400); RDW 13.6 % (11.8-14.1); RDW-SD 46.6 fL; WBC 5.88 10^3/uL (4.4-10.8)
[2023-11-17 15:59] LABS: Anion Gap 7.7 mmol/L (3-11); BUN 18 mg/dL (7-18); CO2 30.3 mmol/L (21.0-32.0); CREATININE 0.9 mg/dL (0.70-1.30); Calcium 9.2 mg/dL (8.5-10.1); Chloride 104 mmol/L (98-107); Estimated GFR 87.96 (mL/min/1.73m2); Glucose 98 mg/dL (74-106); Potassium 4.3 mmol/L (3.5-5.1); Sodium 142 mmol/L (136-145)
== END 2023-11-17 05:07 | disposition home or self-care (01) ==
LOC: LBO 05:06
PROVIDERS: PCP Internal Medicine; Visit Provider Student in an Organized Health Care Education/Training Program
DX: M17.12 Unilateral primary osteoarthritis, left knee (principal); Z01.818 Encounter for other preprocedural examination
CPT/HCPCS: 36415; 80048; 85027

== ENCOUNTER 2023-11-24 09:29 | Emergency (ER) | payer MEDICARE, BC, SELFPAY ==
[2023-11-24 09:52] VITALS: BP 132/75; PULSE 63; RESP 18; TEMP 36.8; O2SAT 97
== END 2023-11-24 12:07 ==
LOC: ER 09:44
PROVIDERS: PCP Internal Medicine
DX: Z53.21 Procedure and treatment not carried out due to patient leaving prior to being seen by health care provider (principal)

== ENCOUNTER → 2023-12-03 13:27 | Outpatient (BNVA) | payer MEDICARE, BC, SELFPAY | PROVIDERS: PCP Internal Medicine; Referring Provider Internal Medicine; Visit Provider Student in an Organized Health Care Education/Training Program | DX: M70.61 Trochanteric bursitis, right hip (principal); M76.31 Iliotibial band syndrome, right leg; M54.50 Low back pain, unspecified | CPT/HCPCS: 20610; J1010 ==

== ENCOUNTER → 2024-06-02 11:10 | Outpatient (BNVA) | payer MEDICARE, BC, SELFPAY | PROVIDERS: PCP Internal Medicine; Referring Provider Internal Medicine; Visit Provider Student in an Organized Health Care Education/Training Program | DX: M70.62 Trochanteric bursitis, left hip (principal) | CPT/HCPCS: 20610; J1010 ==

== ENCOUNTER 2024-07-08 15:26 | Outpatient (CLI) | payer MEDICARE, BC, SELFPAY ==
--- NOTE | 2024-07-08 14:30 | DI.RAD_ITS ---
Exam(s) XR KNEE LT 1V XR STANDING ALIGNMENT EXAM: XR STANDING ALIGNMENT CLINICAL HISTORY: pre op L TKA. TECHNIQUE: 2D digital imaging was performed. Standing AP views were performed from the pelvis throu gh the ankles. COMPARISON: CR XR KNEE RT 3V AP,LAT,SURINDER from 05/19/2020 XA XR HIP RT IN OR from 08/22/2022 DX XR FEMUR 2 VIEWS RIGHT (GENERIC) from 11/24/2023 DX XR PELVIS (GENERIC) from 11/24/2023 CR XR KNEE LT 1V from 07/08/2024 FINDINGS: BONES: No acute fracture is present. No bony destructive lesion is seen. High-density material again noted in L5 and both right and left sacral alum. Leg length discrepancy: No significant overall leg length discrepancy. JOINTS: Knees: Stable alignment of right knee prosthesis. The femoral tibial joint spaces of the lef t knee are maintained. There is a prominent these a fight at the upper pole of the left patella and adjacent calcification. Mild patellofemoral degenerative changes. The ankle joints show mild degenerative changes. Hips: Stable alignment of bilateral hip prostheses. SOFT TISSUE: Vascular calcifications. Bilateral lower leg edema. IMPRESSION: Mild degenerative changes of the left knee. No significant leg length discrepancy. Stable appearance of bilateral hip prostheses and right knee prosthesis. DATA REPOSITORY: RADIATION DOSE DELIVERED:
== END 2024-07-08 15:27 | disposition home or self-care (01) ==
LOC: DIORS 15:27
PROVIDERS: PCP Internal Medicine; Visit Provider Physician Assistant
DX: M17.12 Unilateral primary osteoarthritis, left knee (principal); Z01.818 Encounter for other preprocedural examination
CPT/HCPCS: 73560; 77073

== ENCOUNTER 2024-07-09 10:53 | Outpatient (CLI) | payer MEDICARE, BC, SELFPAY ==
[2024-07-09 09:03] LABS: HCT 44.3 % (40.0-50.0); MCH 31.6 pg (27.0-33.0); MCHC 33.9 % (32.0-36.0); MCV 94 fL (80-95); MPV 9.1 fL (8.0-11.0); Platelet Count 155 10^3/uL (130-400); RBC 4.74 10^6/uL (4.36-5.78); RDW 13.7 % (11.8-14.1); RDW-SD 47.4 fL; WBC 4.21 10^3/uL (4.4-10.8)
[2024-07-09 09:13] LABS: Anion Gap 4.4 mmol/L (3-11); BUN 14 mg/dL (7-18); CO2 31.6 mmol/L (21.0-32.0); CREATININE 1.1 mg/dL (0.70-1.30); Calcium 9.1 mg/dL (8.5-10.1); Chloride 108 mmol/L (98-107); Estimated GFR 69.14 (mL/min/1.73m2); Glucose 81 mg/dL (74-106); Potassium 4.2 mmol/L (3.5-5.1); Sodium 144 mmol/L (136-145)
--- OUTSIDE RECORDS SUMMARY | 2024-07-09 10:58 | XMS_ITS | Encounter Summary ---
Author Organization [facility] Address [address] [place] [address] Care Team Providers Care Operations Manager Station Name Role Phone Manuel White MD Unavailable [phone] Marcella Waller Unavailable Reji Adams MD Primary Care Provider [phone] Jonathan Young MD Unavailable [phone] Reason for Visit * Reason Comments Stress Management Encounter Details Date Type Department Care Team (Late st Contact Info) Description 09/18/2022 10:00 EST Telemedicine [facility] Adult Hematology & Oncology [facility] [place] [address] Augusta Meade, [address] [place] [address] Adjustment disorder with mixed anxiety and depressed mood (Primary Dx) Social History Tobacco Use Types Packs/Day Years Used Date Smoking Tobacco: Never Smokeless Tobacco: Current Chew Alcohol Use Standard Drinks/Week Comments Yes 0 (1 standard drink = 0.6 oz pur e alcohol) RARE Sex and Gender Information Value Date Recorded Sex Assigned at Not on file Legal Sex Male 15:48 EDT Gender Identity Male 05/10/2021 10:21 EDT Sexual Orientation Not on file 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 Answer Date of Assessment Author No 03/29/2016 8:47 EDT documented as of this encounter Mental Status * Because of a physical, mental, or emotional condition, does this person have serious difficulty concentrating, remembering, or making decisions? Answer Entry Date Author No 03/29/2016 8:47 EDT documented in this encounter Plan of Treatment Not on file documented as of this encounter Visit Diagnoses Diagnosis Adjustment disorder with mixed anxiety and depressed mood- Primary documented in this encounter Care Teams Operations Manager Station Relationship Specialty Start Date End Date Reji Adams [place] [address] PCP - General 12/29/21 Manuel White MD [address] [place] [phone] Radiation Oncology 09/24/21 Marcella Waller [address] [facility] [place] [address] Co Founder And Director 09/24/21 Jonathan Young MD [address] [place] [address] [address] [place] [address] Radiology Assistant Cardiovascular Disease 03/11/22 documented as of this encounter
--- OUTSIDE RECORDS SUMMARY | 2024-07-09 10:58 | XMS_ITS | Encounter Summary ---
Author Organization [facility] Address [address] [place] [address] Care Team Providers Care Diet Therapist Name Role Phone Manuel White MD Unavailable [phone] Marcella Waller Unavailable Reji Adams MD Primary Care Provider [phone] Jonathan Young MD Unavailable [phone] Reason for Visit * Reason Comments Event Monitor Placement Zio XT Encounter Details Date Type Department Care Team (Late st Contact Info) Description 10/14/2022 10:00 EDT Nurse Only [facility] [address] [place] [address] [id number] Nurse, [facility] PSVT (paroxysmal supraventricular tachycardia) (Primary Dx) Social History Tobacco Use Types [...] 03/29/2016 8:47 EDT documented in this encounter Progress Notes * Tomas Elliott, RN - 10/14/2022 1000 EDT Pt to office for placement of 14 day Zio monitor. Pt aox3 and w/o complaints. Reviewed patient information and instructions with patient who verbalizes understanding. Zio monitor applied to left chest after appropriate skin prep per guidelines from marriage and family social worker. Pt demonstrated pushing event buttonto activate after application. Pt verbalizes understanding of documenting events after pushing the event button. Reviewed troubleshooting the device as well as how to contact the marriage and family social worker help line with questions/concerns. Pt verbalizes understanding of removal and how to mail it back to the marriage and family social worker. documented in this encounter Plan of Treatment Not on file documented as of this encounter Visit Diagnoses Diagnosis PSVT (paroxysmal supraventricular tachycardia) ([facility])- Primary Paroxysmal supraventricular tachycardia documented in this encounter Care Teams Diet Therapist Relationship Specialty Start Date End Date Reji Adams MD [facility] [place] [address] PCP - General 12/29/21 Manuel White MD [address] [place] [phone] Radiation Oncology 09/24/21 Marcella Waller [address] [place] [address] Supply Chain Generalist 09/24/21 Jonathan Young MD [address] [place] [address] [address] [place] [address] Senior [employer] Developer Cardiovascular Disease 03/11/22 documented as of this encounter
--- OUTSIDE RECORDS SUMMARY | 2024-07-09 10:58 | XMS_ITS | Encounter Summary ---
Author Organization [facility] Address [address] [place] [id number] Care Team Providers Care Meat Carver Name Role Phone Manuel White MD Unavailable [phone] Marcella Waller Unavailable Reji Adams MD Primary Care Provider [phone] Jonathan Young MD Unavailable [phone] Reason for Visit * Reason Onset Date Comments Update 01/10/2023 Encounter Details Date Type Department Care Team (Late st Contact Info) Description 01/10/2023 Telephone [facility] [address] [place] [address] Jonathan Young MD [address] [facility] [address] [place] [address] Update Social History Tobacco Use Types Packs/Day Years [...] 03/29/2016 8:47 EDT documented in this encounter Miscellaneous Notes * Telephone Encounter - Vannesa Martinez RN - 01/10/2023 1021 EDT Spoke with patient, he is aware of Dr. Fitzpatrick's advice regarding EKG changes. He is happy for the call and Dr. Young's time. 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 * Telephone Encounter - Jonathan Yonug MD - 01/10/2023 1001 EDT Images from the original note were not included. Outside EKG reviewed: RBBB + LAFB. You can send over his last EKG done at [facility] - it showed RBBB + LAFB as well. No need for further action. * Telephone Encounter - Tito Potter - 01/10/2023 0855 EDT Pt calling as he was seen in [facility] ED for abdominal pain last night. He states that they think hehas gall stones. Pt is calling as an EKG was done at this time which showed a LBBB as well as the RBBB (which was known.) Pt is calling as he would like a call back to discuss this. I have asked pt to call [facility] and have them fax the EKG for Dr. Young to review documented in this encounter Plan of Treatment Not on file documented as of this encounter Visit Diagnoses Not on filedocumented in this encounter Care Teams Meat Carver Relationship Specialty Start Date End Date Reji Adams MD [facility] [place] [address] PCP - General 12/29/21 Manuel White MD [address] [place] [id number] Radiation Oncology 09/24/21 Marcella Waller [address] [facility] [place] [address] Insurance Claim Auditor 09/24/21 Jonathan Young MD [address] [place] [address] [place] [address] Agency Service Representative Cardiovascular Disease 03/11/22 documented as of this encounter
--- OUTSIDE RECORDS SUMMARY | 2024-07-09 10:58 | XMS_ITS | Continuity of Care Document ---
Author Organization [facility] Address [address] [place] [id number] Care Team Providers Care Cribber Name Role Phone Reji Adams Primary Care Physician Encounter [facility] [id number] Date(s): 02/22/24 - 02/22/[address] [address] Encounter Diagnosis PVCs (premature ventricular contractions)(Discharge Diagnosis) - 02/22/24 Right bundle branch block(Discharge Diagnosis) - 02/22/24 Anxiety(Discharge Diagnosis) - 02/22/24 Discharge Disposition: Home or Self Care Attending Physician: Woodrow Dunn DO Admitting Physician: Woodrow Dunn DO Referring Physician: Reji Adams Allergies, Adverse Reactions, Alerts Substance Criticality Severity Reaction Reaction Severity Status penicillin High criticality Severe Anaphylacti c reaction Active betamethasone Unable to assess criticality Unknown Active dexAMETHasone Unable to assess criticality Unknown Active Medications ALPRAZolam 0.25 mg oral tablet TAKE 1 TABLET BY MOUTH THREE TIMES DAILY NEEDED FOR ANXIETY Start Date: 08/15/23 Status: Ordered pravastatin 20 mg oral tablet TAKE 1 TABLET BY MOUTH ONCE DAILY Start Date: 08/15/23 Status: Ordered tadalafil 10 mg oral tablet TAKE 1 TO 2 TABLETS BY MOUTH NEEDED PRIOR TO SEXUAL ACTIVITY Start Date: 08/15/23 Status: Ordered Mental Status 02/22/24 Eye Opening Response Misael Spontaneous ly Best Verbal Response Misael Oriented Best Motor Response [place] Obeys comman ds [place] Coma Score 15 Problem List Condition Confirmation Course Effective Dates Status Health St atus Informant Anxiety Confirmed Active Right bundle branch block Confirmed Active Results Laboratory List Name Date Automated Diff 02/22/24 BNP 02/22/24 CBC w/ Diff 02/22/24 Comprehensive Metabolic Panel (CMP) 02/21 hs Troponin-I (troponin-i) 02/22/24 Most recent to oldest [Reference Range]: 1 WBC [4.80-10.80 x10^3/mcL] 5.01 x10^3/mc L (02/22/24 8:37 PM) RBC [4.20-5.90 x10^6/mcL] 4.65 x10^6/mcL (02/22/24 8:37 PM) Neutro Auto [40.0-74.0 /100(WBCs)] 61.7 /100(WBCs) (02/22/24 8:37 PM) Lymph Auto [19.0-48.0 /100(WBCs)] 29.3 / 100(WBCs) (02/22/24 8:37 PM) Schleicher Auto [3.0-10.0 /100(WBCs)] 7.2 /100 (WBCs) (02/22/24 8:37 PM) Basophil Auto [0.00-2.00 /100(WBCs)] 0.4 0 /100(WBCs) (02/22/24 8:37 PM) BUN [7-18 mg/dL] 20 mg/dL *HI* (02/22/24 8:37 PM) Glucose Level [70-100 mg/dL] 96 mg/dL (02/22/24 8:37 PM) Potassium Level [3.5-5.1 mEq/L] 4.0 mEq/ L (02/22/24 8:37 PM) Baso Absolute [0.00-0.20 x10^3/mcL] 0.02 x10^3/mcL (02/22/24 8:37 PM) MCV [80.0-97.0 fL] 92.0 fL (02/22/24 8:37 PM) AST [15-37 unit/L] 18 unit/L (02/22/24 8:37 PM) ALT [16-63 unit/L] 24 unit/L (02/22/24 8:37 PM) MCHC [33.0-36.0 g/dL] 33.9 g/dL (02/22/24 8:37 PM) Sodium Level [136-145 mEq/L] 139 mEq/L (02/22/24 8:37 PM) Lymph Absolute [1.20-3.40 x10^3/mcL] 1.4 7 x10^3/mcL (02/22/24 8:37 PM) Hct [40.0-50.0 %] 42.8 % (02/22/24 8:37 PM) Calcium Level [8.5-10.1 mg/dL] 9.4 mg/dL (02/22/24 8:37 PM) Schleicher Absolute [0.11-0.70 x10^3/mcL] 0.36 x10^3/mcL (02/22/24 8:37 PM) Albumin Level [3.4-5.0 g/dL] 3.8 g/dL (02/22/24 8:37 PM) Protein Total [6.4-8.2 g/dL] 6.7 g/dL (02/22/24 8:37 PM) MCH [27.5-32.1 pg] 31.2 pg (02/22/24 8:37 PM) Neutro Absolute [1.20-6.70 x10^3/mcL] 3. 09 x10^3/mcL (02/22/24 8:37 PM) Bilirubin Total [0.2-1.2 mg/dL] 0.7 mg/d L (02/22/24 8:37 PM) Hgb [13.5-17.5 g/dL] 14.5 g/dL (02/22/24 8:37 PM) Alk Phos [45-115 unit/L] 47 unit/L (02/22/24 8:37 PM) MPV [6.0-10.0 fL] 9.5 fL (02/22/24 8:37 PM) Platelets [150-400 x10^3/mcL] 143 x10^3/ mcL *LOW* (02/22/24 8:37 PM) CO2 [21-31 mEq/L] 30 mEq/L (02/22/24 8:37 PM) Eos Absolute [0.00-0.70 x10^3/mcL] 0.06 x10^3/mcL (02/22/24 8:37 PM) eGFR Non-AA [>=60 mL/min/1.73 m2] 69 mL/ min/1.73 m2 (02/22/24 8:37 PM) eGFR AA [>=60 mL/min/1.73 m2] 84 mL/min/ 1.73 m2 (02/22/24 8:37 PM) BNP [0-100 pg/mL] 52 pg/mL 1 (02/22/24 8:37 PM) Chloride Level [98-107 mEq/L] 103 mEq/L (02/22/24 8:37 PM) A/G Ratio 1.3 *NA* (02/22/24 8:37 PM) BUN/Creat Ratio 19 ratio *NA* (02/22/24 8:37 PM) Globulin 2.90 mg/dL *NA* (02/22/24 8:37 PM) Imm Gran Absolute [0.00-0.04 x10^3/mcL] 0.01 x10^3/mcL (02/22/24 8:37 PM) Imm Gran Auto 0.2 /100(WBCs) *NA* (02/22/24 8:37 PM) hs Troponin-I [<=76 ng/L] 5 ng/L 2 (02/22/24 8:37 PM) Creatinine Level [0.70-1.30 mg/dL] 1.04 mg/dL (02/22/24 8:37 PM) RDW-CV [11.6-14.8 %] 13.6 % (02/22/24 8:37 PM) Anion Gap [5-15 mEq/L] 10 mEq/L (02/22/24 8:37 PM) Eos, Auto [1.0-7.0 /100(WBCs)] 1.2 /100( WBCs) (02/22/24 8:37 PM) 1Interpretive Data: <100 pg/ml: normal values in patients without CHF >100: abnormal and suggestive of patients with CHF 2Interpretive Data: Results were determined using the FDA-approved Siemens Dimension EXL High Sensitivity Troponin I assay. According to the 4th [place] Definition of Myocardial Infarction, the following criteria with a clinical presentation consistent with acute myocardial ischemia. Detection of a rise and/or fall of cTn with at least one value greater than the 99th percentile (51 ng/L for females, 76 ng/L for males), with at least one of the following: ??? Symptoms of acute myocardial ischemia ??? New ischemic electrocardiographic (ECG) changes ??? Development of pathologic Q waves Imaging evidence of new loss of viable myocardium or new regional wall motion abnormality consistent with an ischemic etiology. Identification of an intracoronary thrombus by angiography or autopsy.Serial sampling of cTNI is recommended to detect the temporal rise and fall of troponin levels charact eristic of AMI. Consistently elevated troponin concentrations may be associated with non-AMI conditions, such as renal failure, arrhythmias, pulmonary embolism, chronic renal disease, myocarditis, and cardiotoxicity.Measurable concentrations of cTNI above the LoD will be attained in at least 50% ofhealthy subjects using this assay.Plasma containing biotin at a concentration >300 ng/mL may have falsely depressed results. Testing specimens from renal dysfunction patients taking biotin may lead to false negative results. Dextran 40 at 60 g/L increases the troponin result in patient plasma. References: Fourth [place] Definition of Myocardial Infarction. JACC, 72, 9505 ??? 7822. 2018 Dimension EXL LOCI High-Sensitivity Troponin I [package insert]. [employer], [place], [place]. Rev. F 02-25-2019 Radiology Reports * Exam Date Time Procedure Performing Provider Status 02/22/24 9:00 PM XR Chest 1 View Estrellita Marvin; Auth (Melissa ified) Notes: (XR Chest 1 View) Reason For Exam: SOB XR Chest 1 View EXAMINATION: XR Chest 1 View CLINICAL HISTORY: SOB TECHNIQUE: Single lateral view COMPARISON: Chest x-ray, 1946 hours, February 22, 2024 FINDINGS: Clear lungs without focal consolidation. Specifically, no evidence of middle lobe pneumonia. IMPRESSION: Clear lungs, no pneumonia. Thank you for letting us participate in the care of this patient. If you are a health care provider and have any questions regarding this report, please contact the number below. For patients who have questions please contact the health occasional caregiver that requested your imaging first. Electronically signed by: Kavya Zurita MD, [facility] ([phone]), at 02/22/2024 9:07 PM Final Dictated by: Dony Feliciano Dictated DT/TM: 02/22/2024 9:13 pm Signed by: Dony Feliciano Signed (Electronic Signature): 02/22/2024 9:00 pm Transcribed by: GDU * Exam Date Time Procedure Performing Provider Status 02/22/24 8:19 PM XR Chest 1 View Etsrellita Marvin; Auth (Melissa ified) Notes: (XR Chest 1 View) Reason For Exam: SOB XR Chest 1 View EXAMINATION: XR Chest 1 View CLINICAL HISTORY: SOB TECHNIQUE: Frontal radiograph of the chest COMPARISON: CT chest January 19, 2023 FINDINGS: New ill-defined right middle lobe opacity. The left lung is clear. No pneumothorax or pleural effusions detected. IMPRESSION: Appearance concerning for middle lobe pneumonia. Consider confirmation with lateral radiograph. Thank you for letting us participate in the care of this patient. If you are a health care provider and have any questions regarding this report, please contact the number below. For patients who have questions please contact the health occasional caregiver that requested your imaging first. Electronically signed by: Vamsi Skaggs MD, [facility] ([phone]), at 02/22/2024 8:36 PM Vital Signs Most recent to oldest [Reference Range]: 1 2 3 Temperature Oral [35.8-37.3 Deg C] 36.5 Deg C (02/22/24 9:47 PM) Temperature Temporal Artery [36-38 Deg C] 36.4 Deg C (02/22/24 8:50 PM) 36.3 Deg C (02/22/24 7:17 PM) Peripheral Pulse Rate [60-100 bpm] 62 bpm (02/22/24 8:50 PM) 63 bpm (02/22/24 7:45 PM) 71 bpm (02/22/24 7:17 PM) Heart Rate Monitored [60-100 bpm] 60 bpm (02/22/24 9:47 PM) 62 bpm (02/22/24 8:50 PM) 68 bpm (02/22/24 7:45 PM) Respiratory Rate [12-24 br/min] 16 br/min (02/22/24 9:47 PM) 15 br/min (02/22/24 8:50 PM) 16 br/min (02/22/24 7:45 PM) Blood Pressure [90-140/60-90 mmHg] 117/78mmHg (02/22/24 9:47 PM) 122/72mmHg (02/22/24 8:50 PM) 124/64mmHg (02/22/24 7:45 PM) Mean Arterial Pressure, Cuff 91 (02/22/24 9:47 PM) 89 (02/22/24 8:50 PM) 84 (02/22/24 7:45 PM) Weight Estimated 88.45 kg (02/22/24 7:17 PM) Body Mass Index Estimated 27.98 kg/m2 (02/22/24 7:17 PM) Height/Length Estimated 177.80 cm (02/22/24 7:17 PM) Social History Social History Type Response Tobacco Never tobacco user T obacco Use:. Sex Male Hospital Discharge Instructions Patient Education 02/22/2024 20:30:46 Managing Anxiety, Adult Managing Anxiety, Adult After being diagnosed with anxiety, you may be relieved to know why you have felt or behaved a certain way. You may also feel overwhelmed about the treatment ahead and what it will mean for your life. With care and support, you can manage this condition. How to manage lifestyle changes Managing stress and anxiety Stress is your body's reaction to life changes and events, both good and bad. Most stress will lastjust a few hours, but stress can be ongoing and can lead to more than just stress. Although stress can play a major role in anxiety, it is not the same as anxiety. Stress is usually caused by something external, such as a deadline, test, or competition. Stress normally passes after the triggering ev ent has ended. Anxiety is caused by something internal, such as imagining a terrible outcome or worrying that something will go wrong that will devastate you. Anxiety often does not go away even after the triggering event is over, and it can become long-term (chronic) worry. It is important to understand the differences between stress and anxiety and to manage your stress effectively so that it does not lead samira anxious response. Talk with your health care provider or a counselor to learn more about reducing anxiety and stress.He or she may suggest tension reduction techniques, such as: ??? Music therapy. Spend time creating or listening to music that you enjoy and that inspires you. ??? Mindfulness-based meditation. Practice being aware of your normal breaths while not trying to control your breathing. It can be done while sitting or walking. ??? Centering prayer. This involves focusing on a word, phrase, or sacred image that means something to you and brings you peace. ??? Deep breathing. To do this, expand your stomach and inhale slowly through your nose. Hold your breath for 3???5 seconds. Then exhale slowly, letting your stomach muscles relax. ??? Self-talk. Learn to notice and identify thought patterns that lead to anxiety reactions and change those patterns to thoughts that feel peaceful. ??? Muscle relaxation. Taking time to tense muscles and then relax them. Choose a tension reduction technique that fits your lifestyle and personality. These techniques take time and practice. Set aside 5???15 minutes a day to do them. Therapists can offer counseling and training in these techniques. The training to help with anxiety may be covered by some insurance plans. Other things you can do to manage stress and anxiety include: ??? Keeping a stress diary. This can help you learn what triggers your reaction and then learn waysto manage your response. ??? Thinking about how you react to certain situations. You may not be able to control everything, but you can control your response. ??? Making time for activities that help you relax and not feeling guilty about spending your time in this way. ??? Doing visual imagery. This involves imagining or creating mental pictures to help you relax. ??? Practicing yoga. Through yoga poses, you can lower tension and promote relaxation. Medicines Medicines can help ease symptoms. Medicines for anxiety include: ??? Antidepressant medicines. These are usually prescribed for long-term daily control. ??? Anti-anxiety medicines. These may be added in severe cases, especially when panic attacks occur. Medicines will be prescribed by a health care provider. When used together, medicines, psychotherapy, and tension reduction techniques may be the most effective treatment. Relationships Relationships can play a big part in helping you recover. Try to spend more time connecting with trusted friends and family members. ??? Consider going to couples counseling if you have a partner, taking family education classes, orgoing to family therapy. ??? Therapy can help you and others better understand your condition. How to recognize changes in your anxiety Everyone responds differently to treatment for anxiety. Recovery from anxiety happens when symptomsdecrease and stop interfering with your daily activities at home or work. This may mean that you will start to: ??? Have better concentration and focus. Worry will interfere less in your daily thinking. ??? Sleep better. ??? Be less irritable. ??? Have more energy. ??? Have improved memory. It is also important to recognize when your condition is getting worse. Contact your health care provider if your symptoms interfere with home or work and you feel like your condition is not improving. Follow these instructions at home: Activity ??? Exercise. Adults should do the following: ??? Exercise for at least 150 minutes each week. The exercise should increase your heart rate and make you sweat (moderate-intensity exercise). ??? Strengthening exercises at least twice a week. ??? Get the right amount and quality of sleep. Most adults need 7???9 hours of sleep each night. Lifestyle ??? Eat a healthy diet that includes plenty of vegetables, fruits, whole grains, low-fat dairy products, and lean protein. ??? Do not eat a lot of foods that are high in fats, added sugars, or salt (sodium). ??? Make choices that simplify your life. ??? Do not use any products that contain nicotine or tobacco. These products include cigarettes, chewing tobacco, and vaping devices, such as e-cigarettes. If you need help quitting, ask your health care provider. ??? Avoid caffeine, alcohol, and certain opgj-sdq-theiduv cold medicines. These may make you feel worse. Ask your pharmacist which medicines to avoid. General instructions ??? Take ihgk-rhb-qzzvhof and prescription medicines only as told by your health care provider. ??? Keep all follow-up visits. This is important. Where to find support You can get help and support from these sources: ??? Self-help groups. ??? Online and community organizations. ??? A trusted spiritual leader. ??? Couples counseling. ??? Family education classes. ??? Family therapy. Where to find more information You may find that joining a support group helps you deal with your anxiety. The following sources can help you locate counselors or support groups near you: ??? Mental Health [place]: www.mentalhealthamerica.net ??? Anxiety and Depression Association of [place] (ADAA): www.adaa.org ??? National [place] on Mental Illness (DEE DEE): www.dee dee.org Contact a health care provider if: ??? You have a hard time staying focused or finishing daily tasks. ??? You spend many hours a day feeling worried about everyday life. ??? You become exhausted by worry. ??? You start to have headaches or frequently feel tense. ??? You develop chronic nausea or diarrhea. Get help right away if: ??? You have a racing heart and shortness of breath. ??? You have thoughts of hurting yourself or others. If you ever feel like you may hurt yourself or others, or have thoughts about taking your own life,get help right away. Go to your nearest emergency department or: ??? Call your local emergency services (911 in the [place] ??? Call a suicide crisis helpline, such as the National Suicide Prevention Lifeline at or 051 in the [place] This is open 24 hours a day in the [place] ??? Text the Crisis Text Line at 066202 (in the [place] Summary ??? Taking steps to learn and use tension reduction techniques can help calm you and help prevent triggering an anxiety reaction. ??? When used together, medicines, psychotherapy, and tension reduction techniques may be the most effective treatment. ??? Family, friends, and partners can play a big part in supporting you. This information is not intended to replace advice given to you by your health care provider. Make sure you discuss any questions you have with your health care provider. Document Revised: 02/06/2022 Document Reviewed: 11/04/2021 [employer] Patient Education ?? 2022 [employer] 02/22/2024 20:30:34 Premature Ventricular Contraction Premature Ventricular Contraction A premature ventricular contraction (PVC) is a type of irregular heartbeat (arrhythmia). The heart has four chambers, including the upper chambers (atria) and lower chambers (ventricles). Normally, an electrical signal starts in a group of cells called the sinoatrial node (SA node) and travels through the atria, causing them to pump blood into the ventricles. During a PVC, the heartbeat starts inone of the lower ventricles. This may cause the heartbeat to be shorter and less effective. In mostcases, PVCs come and go and do not require treatment. What are the causes? Common causes of the condition include: ??? Heart attack or coronary artery disease (CAD). ??? Heart valve problems. ??? Heart surgery. ??? Infection of the heart (myocarditis). ??? Inflammation of the heart. In many cases, the cause of this condition is not known. What increases the risk? The following factors may make you more likely to develop this condition: ??? Age, especially being over age 75. ??? Being male. ??? An imbalance of salts and minerals in the body (electrolytes). ??? Low blood oxygen levels or high carbon dioxide levels. ??? Certain medicines, including dlsv-lxq-vjbhrir and prescribed medicines. ??? High blood pressure. ??? Obesity. Episodes may be triggered by: ??? Vigorous exercise. ??? Tobacco, alcohol, or caffeine use. ??? Illegal drug use. ??? Emotional stress. ??? Poor or irregular sleep. What are the signs or symptoms? The main symptoms of this condition are fast or irregular heartbeats (palpitations) or the feeling of a pause in the heartbeat. Other symptoms include: ??? Shortness of breath. ??? Difficulty exercising. ??? Chest pain. ??? Feeling tired. ??? Dizziness. In some cases, there are no symptoms. How is this diagnosed? This condition may be diagnosed based on: ??? Your medical history or symptoms. ??? A physical exam. Your health care provider may listen to your heart. ??? Tests, such as: ??? Blood tests. ??? An ECG (electrocardiogram) to monitor the electrical activity of your heart. ??? An ambulatory personnel monitor that records your heartbeats for 24 hours or more. ??? Stress tests to see how exercise affects your heart rhythm and blood supply. ??? An echocardiogram, which creates an image of your heart. ??? An electrophysiology study (EPS) to check for electrical problems in your heart. How is this treated? Treatment for this condition depends on any underlying conditions, the type of PVC, how many PVCs you have had, and if the symptoms are affecting your daily life. Possible treatments include: ??? Avoiding things that cause PVCs (triggers). These include caffeine, tobacco, and alcohol. ??? Taking medicines if symptoms are severe or if the arrhythmias happen a lot. ??? Getting treatment for underlying conditions that cause PVCs. ??? Having an implantable cardioverter defibrillator (ICD) placed in the chest to monitor the heartbeat. The monitor sends a shock to the heart if it senses an arrhythmia and brings the heartbeat back to normal. ??? Having a catheter ablation procedure to destroy the part of the heart tissue that sends abnormal signals. In many cases, no treatment is required. Follow these instructions at home: Lifestyle ??? Do not use any products that contain nicotine or tobacco. These products include cigarettes, chewing tobacco, and vaping devices, such as e-cigarettes. If you need help quitting, ask your health care provider. ??? Do not use illegal drugs. ??? Exercise regularly. Ask your health care provider what type of exercise is safe for you. ??? Try to get at least 7???9 hours of sleep each night. ??? Find healthy ways to manage stress. Avoid stressful situations when possible. Alcohol use ??? Do not drink alcohol if: ??? Your health care provider tells you not to drink. ??? You are , may be , or are planning to become . ??? Alcohol triggers your episodes. ??? If you drink alcohol: ??? Limit how much you have to: ??? 0???1 drink a day for women. ??? 0???2 drinks a day for men. ??? Know how much alcohol is in your drink. In the [place] one drink equals one 12 oz bottle of beer (355 mL), one 5 oz glass of wine (148 mL), or one 1?? oz glass of hard liquor (44 mL). General instructions ??? Take ndqq-auw-yzmkggj and prescription medicines only as told by your health care provider. ??? If caffeine triggers episodes of PVC, do not eat, drink, or use anything with caffeine in it. Contact a health care provider if: ??? You feel palpitations often. ??? You have nausea and vomiting. Get help right away if: ??? You have chest pain. ??? You have trouble breathing. ??? You start sweating for no reason. ??? You become light-headed or you faint. These symptoms may be an emergency. Get help right away. Call 911. ??? Do not wait to see if the symptoms will go away. ??? Do not drive yourself to the hospital. This information is not intended to replace advice given to you by your health care provider. Make sure you discuss any questions you have with your health care provider. Document Revised: 12/13/2022 Document Reviewed: 12/13/2022 [employer] Patient Education ?? 2022 [employer] Follow Up Care 02/22/2024 19:07:24 With:Reji Adams Address: [facility] [place] [address]- When:1 to 2 weeks Physician Emergency department Note * Woodrow Dunn DO: PERFORM Event Display: ED Note Physician Authored Date: [id number] SANDY COLE :1945 Age:78 years Sex:Male Visit Date:02/22/2024 Primary Care Physician: Reji Adams Basic Information ??No qualifying data available.?? Chief Complaint SOB for for 1 1/2 week History Of Present Illness: Patient is a??78-year-old male with history of anxiety, hyperlipidemia, erectile dysfunction.?? Patient had the ED on 02/21 complaining of shortness of breath of approximately 1 -1.5??weeks.??Patient reports that he saw his PCP approximately 3 days prior, states that he had the same complaint there and the doctor listen to his heart and lungs, stated that??the doctor informed him that he could hear an abnormal heartbeat and??his heart was??flopping iibu-otx-fikxk,??however reports it was not atrial fibrillation.?? Patient reports continued shortness of breath??since that time,??however he also states that he has a history of anxiety. ?? He also states that he has had a Zio patch before.?? He also reports??that he chronically has a??history of bundle branch block.?? He also reports that he has apparently had a history of palpitationsin the past??but has been able to??sometimes bring him out of palpitations by having a hard cough or something similar. ?? Also states that he attributed his shortness of breath to possibly having some??allergies, but has had no other allergy symptoms. ?? Patient states that he just wants to be certain that he is not having a heart attack or stroke. Review of Systems: Constitutional:?No??fevers,?No??chills,?No??sweats Eye:?No??recent visual problems ENT:?No??ear pain,?Positive for??nasal congestion,?No??sore throat Respiratory:?Positive for??shortness of breath,?No??cough Cardiovascular:?No??Chest pain,?Positive for??palpitations,?No??syncope Gastrointestinal:?No??nausea,?No??vomiting,?No??diarrhea Genitourinary:?No??hematuria Talha/Lymph:?No??bruising tendency,?No??swollen lymph glands Endocrine:?No??excessive thirst,??No??excessive hunger Musculoskeletal:??No??back pain,??No??neck pain,??No??joint pain,??No??muscle pain,??No??decreased range of motion Integumentary:?No??rash,?No??pruritus,?No??abrasions Neurologic: Alert & oriented X 4 Psychiatric:?Positive for??anxiety,?No??depression Physical Exam Vitals & Measurements T:??36.3?C ??(Temporal Artery)?? HR:??63??(Peripheral)?? RR:??16?? BP:??124/64?? SpO2:??98%?? HT:??177.80??cm?? WT:??88.45??kg??(Estimated)?? BMI:??27.98?? Orthostatic Vitals: Pulse Standin bpm (02/22/24 19:45:00) General:??Awake, alert, no acute distress. ??Oriented person place and time Head: NC/AT. Eyes: No scleral icterus Cardiovascular:??Regular rate, mildly irregular rhythm.?? No click rubs or murmurs noted.?? 1+ nonpitting edema??in the lower extremities bilaterally. Pulmonary: Lungs clear to auscultation bilaterally, no wheeze rales or rhonchi. ??Symmetrical rise of chest. ??No labored breathing at rest. Abdomen: Soft, nontender, nondistended. Extremities:??No gross deformities noted.?? 1+ nonpitting lower extremity??edema bilaterally.?? Surgical scars noted on right knee. Neurologic: No slurred speech, no facial droop. Psych:??Mood is moderately flattened/depressed,??mildly anxious. Medical Decision Making: Patient's lungs clear on??auscultation.?? Chest x-ray??with no indication of pneumonia. ??Patient also with normal white count. No elevated troponin BNP within normal limits. ?? Overall patient without any significant laboratory abnormalities. ?? Patient's vital signs are stable, patient's EKG does show some PVCs, but no ST changes. ?? Patient with no indication of pneumonia??is noted above, no indication of asthma COPD exacerbation.?? No indication of ACS.?? No indication of CHF or??fluid overload. ?? Discussed findings with patient, and patient reports he does feel improved. ??Patient also reportedthat he has noted less shortness of breath??when he is in the car with the??air conditioning on or when he is in the house with the air conditioning on. ?? This patient was without indication of??any ACS, CHF,??pneumonia,??or any COPD or??asthma exacerbation??we will discharge the patient back to home. Procedure No Qualifying Data Reexamination/Reevaluation Patient reports feeling??improved,??no shortness of breath.?? Less heart palpitations.?? Feels calmer. ?? General: Awake, alert, no acute distress. Cardiovascular:??Regular rate, mildly irregular rhythm.?? No click, rubs, or murmurs noted. Pulmonary: Lungs clear to auscultation bilaterally, no wheezes rales or rhonchi. ??Symmetrical riseof chest. ??No labored breathing at rest. Abdomen: Soft, nontender, nondistended.?? Normal active bowel sounds. Assessment/Plan #Shortness of breath Patient maintaining??normal respiratory rate??BP??and good SpO2. As noted above, no indication of pneumonia,??no indication of ACS or CHF. Patient does have known history of anxiety,??feel that this is more likely the??cause of the patient's reported shortness of breath. #Palpitations #PVCs #Right bundle branch block: Patient with reported known history of right bundle branch block. Patient does report having palpitations in the past, which are now more frequent, patient does havePVCs noted on??EKG, but no indication of??ACS. Recommend that??Holter/event monitor possibly be considered??as an outpatient. #Hyperlipidemia:??Patient continued on a statin. #Anxiety:??Patient continued on??alprazolam. Ordered: BNP, Blood, Stat, 02/22/24 19:46:00 EDT, Once, Nurse collect CBC w/ Diff, Blood, Stat, 02/22/24 19:45:00 EDT, Once, Nurse collect Comprehensive Metabolic Panel, Blood, Stat, 02/22/24 19:45:00 EDT, Once, Nurse collect hs Troponin-I, Blood, Stat, 02/22/24 19:45:00 EDT, Once, Nurse collect XR Chest 1 View, 02/22/24 19:46:00 EDT, Stat, Reason: SOB, Transport Mode: Portable Patient Discharge Condition Stable Discharge Disposition Home. Patient Education Anxiety Follow Up With PCP??within 1 to 2 weeks Medication Reconciliation Unchanged ALPRAZolam (ALPRAZolam 0.25 mg oral tablet)TAKE 1 TABLET BY MOUTH THREE TIMES DAILY NEEDED FOR ANXIETY. ?? pravastatin (pravastatin 20 mg oral tablet)TAKE 1 TABLET BY MOUTH ONCE DAILY. ?? tadalafil (tadalafil 10 mg oral tablet)TAKE 1 TO 2 TABLETS BY MOUTH NEEDED PRIOR TO SEXUAL ACTIVITY. Problem List/Past Medical History Ongoing No qualifying data Historical No qualifying data Procedure/Surgical History Prostatectomy Right knee replacement Allergies penicillin??(Anaphylactic reaction) betamethasone dexAMETHasone Social History Alcohol Past Electronic Cigarette/Vaping Electronic Cigarette Use: Never. Substance Use Never Tobacco Never tobacco user Tobacco Use:. Images Chest x-ray: My read:??No free air below the diaphragm.?? Trachea midline, no mediastinal.?? No??cardiomegaly noted.?? No distinct opacities noted.?? No pneumothorax. ?? X-Ray: ?? XR Chest 1 View ?? 02/22/24 21:00:00 EXAMINATION: XR Chest 1 View ?? CLINICAL HISTORY: SOB ? TECHNIQUE: Single lateral view ?? COMPARISON: Chest x-ray, 1946 hours, February 22, 2024 ?? FINDINGS: Clear lungs without focal consolidation. Specifically, no evidence of middle lobe pneumonia. ?? IMPRESSION: Clear lungs, no pneumonia. ?? Thank you for letting us participate in the care of this patient. If you are a health care provider and have any questions regarding this report, please contact the number below. For patients who have questions please contact the health occasional caregiver that requested your imaging first. ?? Electronically signed by: ?? Signed By: KikoUserDony ?? XR Chest 1 View ?? 02/22/24 20:19:33 EXAMINATION: XR Chest 1 View ?? CLINICAL HISTORY: SOB ? TECHNIQUE: Frontal radiograph of the chest ?? COMPARISON: CT chest January 19, 2023 ?? FINDINGS: New ill-defined right middle lobe opacity. The left lung is clear. No pneumothorax or pleural effusions detected. ?? IMPRESSION: Appearance concerning for middle lobe pneumonia. Consider confirmation with lateral radiograph. ?? Thank you for letting us participate in the care of this patient. If you are a health care provider and have any questions regarding this report, please contact the number below. For patients who have questions please contact the health occasional caregiver that requested your imaging first. ?? Electronically signed by: ?? Signed By: Vamsi Skaggs MD Computed Tomography:?? Ultrasound:?? MRI:?? Echo:?? Mammography:? Bone Densitometry:?? Diagnostic Results No qualifying data available. ECG Sinus at approximately 60 with occasional PVCs.?? No AV block noted.?? Left axis deviation.?? Rightbundle branch block.?? No apparent ST changes noted.?? QTc 435 Lab Results Labs??(Last four charted values) WBC ?5.01?(FEB 21) Hgb ?14.5?(FEB 21) Hct ?42.8?(FEB 21) Plt ?L??143?(FEB 21) Na ?139?(FEB 21) K ?4.0?(FEB 21) CO2 ?30?(FEB 21) Cr ?1.04?(FEB 21) BUN ?H??20?(FEB 21) Glucose Random ?96?(FEB 21) Electronically Signed on 02/22/2024 21:29 EDT Woodrow Dunn DO Emergency department Discharge instructions * Woodrow Dunn DO: PERFORM Event Display: ED Discharge Information Authored Date: [id number] SANDY COLE :1945 Age:78 years Sex:Male Visit Date:02/22/2024 Primary Care Physician: Reji Adams Discharge Instructions We would like to thank you for allowing us to assist you with your healthcare needs. The following includes patient education materials and information regarding your injury/illness. Diagnosis from Today's Visit PVCs (premature ventricular contractions) Right bundle branch block Anxiety Discharge Vitals Temperature??(Temporal Artery) 97.5 ??F (36.4 ??C) Heart Rate??(Peripheral) 62 Heart Rate??(Monitored) 62 Respiratory Rate?? 15 Blood Pressure?? 122/72?? SpO2?? 100% Height?? 70.00 in (177.80 cm) Weight??(Estimated) 195.03 lb (88.45 kg) BMI?? 27.98 Allergies penicillin??(Anaphylactic reaction) betamethasone dexAMETHasone What to Do Next You Need to Schedule the Following Appointments Follow Up with??Reji Adams When:??Within 1 to 2 weeks Where: [facility] [place] [address]- You were treated today on an emergency basis; it may be you to contact your primary care provider to notify them of your visit today. You may have been referred to your regular doctor or a specialist, please follow up as instructed. If your condition worsens or you can't get in to see the doctor, contact the Emergency Department. Medications What When Instructions Next Dose Unchanged ALPRAZolam (ALPRAZolam 0.25 mg oral tablet) TAKE 1 TABLET BY MOUTH THREE TIMES DAILY NEEDED FOR ANXIETY ?? Unchanged pravastatin (pravastatin 20 mg oral tablet) TAKE 1 TABLET BY MOUTH ONCE DAILY ?? Unchanged tadalafil (tadalafil 10 mg oral tablet) TAKE 1 TO 2 TABLETS BY MOUTH NEEDED PRIOR TO SEXUAL ACTIVITY ?? Education Materials Managing Anxiety, Adult After being diagnosed with anxiety, you may be relieved to know why you have felt or behaved a certain way. You may also feel overwhelmed about the treatment ahead and what it will mean for your life. With care and support, you can manage this condition. How to manage lifestyle changes Managing stress and anxiety Stress is your body's reaction to life changes and events, both good and bad. Most stress will lastjust a few hours, but stress can be ongoing and can lead to more than just stress. Although stress can play a major role in anxiety, it is not the same as anxiety. Stress is usually caused by something external, such as a deadline, test, or competition. Stress normally passes after the triggering ev ent has ended. Anxiety is caused by something internal, such as imagining a terrible outcome or worrying that something will go wrong that will devastate you. Anxiety often does not go away even after the triggering event is over, and it can become long-term (chronic) worry. It is important to understand the differences between stress and anxiety and to manage your stress effectively so that it does not lead samira anxious response. Talk with your health care provider or a counselor to learn more about reducing anxiety and stress.He or she may suggest tension reduction techniques, such as: ? Music therapy. Spend time creating or listening to music that you enjoy and that inspires you. ? Mindfulness-based meditation. Practice being aware of your normal breaths while not trying to control your breathing. It can be done while sitting or walking. ? Centering prayer. This involves focusing on a word, phrase, or sacred image that means something toyou and brings you peace. ? Deep breathing. To do this, expand your stomach and inhale slowly through your nose. Hold your breath for 3???5 seconds. Then exhale slowly, letting your stomach muscles relax. ? Self-talk. Learn to notice and identify thought patterns that lead to anxiety reactions and change those patterns to thoughts that feel peaceful. ? Muscle relaxation. Taking time to tense muscles and then relax them. Choose a tension reduction technique that fits your lifestyle and personality. These techniques take time and practice. Set aside 5???15 minutes a day to do them. Therapists can offer counseling and training in these techniques. The training to help with anxiety may be covered by some insurance plans. Other things you can do to manage stress and anxiety include: ? Keeping a stress diary. This can help you learn what triggers your reaction and then learn ways to manage your response. ? Thinking about how you react to certain situations. You may not be able to control everything, but you can control your response. ? Making time for activities that help you relax and not feeling guilty about spending your time in this way. ? Doing visual imagery. This involves imagining or creating mental pictures to help you relax. ? Practicing yoga. Through yoga poses, you can lower tension and promote relaxation. Medicines Medicines can help ease symptoms. Medicines for anxiety include: ? Antidepressant medicines. These are usually prescribed for long-term daily control. ? Anti-anxiety medicines. These may be added in severe cases, especially when panic attacks occur. Medicines will be prescribed by a health care provider. When used together, medicines, psychotherapy, and tension reduction techniques may be the most effective treatment. Relationships Relationships can play a big part in helping you recover. Try to spend more time connecting with trusted friends and family members. ? Consider going to couples counseling if you have a partner, taking family education classes, or going to family therapy. ? Therapy can help you and others better understand your condition. How to recognize changes in your anxiety Everyone responds differently to treatment for anxiety. Recovery from anxiety happens when symptomsdecrease and stop interfering with your daily activities at home or work. This may mean that you will start to: ? Have better concentration and focus. Worry will interfere less in your daily thinking. ? Sleep better. ? Be less irritable. ? Have more energy. ? Have improved memory. It is also important to recognize when your condition is getting worse. Contact your health care provider if your symptoms interfere with home or work and you feel like your condition is not improving. Follow these instructions at home: Activity ? Exercise. Adults should do the following: ? Exercise for at least 150 minutes each week. The exercise should increase your heart rate and make you sweat (moderate-intensity exercise). ? Strengthening exercises at least twice a week. ? Get the right amount and quality of sleep. Most adults need 7???9 hours of sleep each night. Lifestyle ? Eat a healthy diet that includes plenty of vegetables, fruits, whole grains, low-fat dairy products, and lean protein. ? Do not eat a lot of foods that are high in fats, added sugars, or salt (sodium). ? Make choices that simplify your life. ? Do not use any products that contain nicotine or tobacco. These products include cigarettes, chewing tobacco, and vaping devices, such as e-cigarettes. If you need help quitting, ask your health careprovider. ? Avoid caffeine, alcohol, and certain wjsj-mxq-edrrogp cold medicines. These may make you feel worse. Ask your pharmacist which medicines to avoid. General instructions ? Take vmlw-bgd-enhqnwv and prescription medicines only as told by your health care provider. ? Keep all follow-up visits. This is important. Where to find support You can get help and support from these sources: ? Self-help groups. ? Online and community organizations. ? A trusted spiritual leader. ? Couples counseling. ? Family education classes. ? Family therapy. Where to find more information You may find that joining a support group helps you deal with your anxiety. The following sources can help you locate counselors or support groups near you: ? Mental Health [place]: www.mentalhealth[place].net ? Anxiety and Depression Association of [place] (ADAA): www.adaa.org ? National [place] on Mental Illness (DEE DEE): www.dee dee.org Contact a health care provider if: ? You have a hard time staying focused or finishing daily tasks. ? You spend many hours a day feeling worried about everyday life. ? You become exhausted by worry. ? You start to have headaches or frequently feel tense. ? You develop chronic nausea or diarrhea. Get help right away if: ? You have a racing heart and shortness of breath. ? You have thoughts of hurting yourself or others. If you ever feel like you may hurt yourself or others, or have thoughts about taking your own life,get help right away. Go to your nearest emergency department or: ? Call your local emergency services (911 in the [place] ? Call a suicide crisis helpline, such as the National Suicide Prevention Lifeline at or 658 in the [place] This is open 24 hours a day in the [place] ? Text the Crisis Text Line at 110633 (in the [place] Summary ? Taking steps to learn and use tension reduction techniques can help calm you and help prevent triggering an anxiety reaction. ? When used together, medicines, psychotherapy, and tension reduction techniques may be the most effective treatment. ? Family, friends, and partners can play a big part in supporting you. This information is not intended to replace advice given to you by your health care provider. Make sure you discuss any questions you have with your health care provider. Document Revised: 02/06/2022 Document Reviewed: 11/04/2021 [employer] Patient Education ?? 2022 [employer] Premature Ventricular Contraction A premature ventricular contraction (PVC) is a type of irregular heartbeat (arrhythmia). The heart has four chambers, including the upper chambers (atria) and lower chambers (ventricles). Normally, an electrical signal starts in a group of cells called the sinoatrial node (SA node) and travels through the atria, causing them to pump blood into the ventricles. During a PVC, the heartbeat starts inone of the lower ventricles. This may cause the heartbeat to be shorter and less effective. In mostcases, PVCs come and go and do not require treatment. What are the causes? Common causes of the condition include: ? Heart attack or coronary artery disease (CAD). ? Heart valve problems. ? Heart surgery. ? Infection of the heart (myocarditis). ? Inflammation of the heart. In many cases, the cause of this condition is not known. What increases the risk? The following factors may make you more likely to develop this condition: ? Age, especially being over age 75. ? Being male. ? An imbalance of salts and minerals in the body (electrolytes). ? Low blood oxygen levels or high carbon dioxide levels. ? Certain medicines, including qfib-ofw-idbcipr and prescribed medicines. ? High blood pressure. ? Obesity. Episodes may be triggered by: ? Vigorous exercise. ? Tobacco, alcohol, or caffeine use. ? Illegal drug use. ? Emotional stress. ? Poor or irregular sleep. What are the signs or symptoms? The main symptoms of this condition are fast or irregular heartbeats (palpitations) or the feeling of a pause in the heartbeat. Other symptoms include: ? Shortness of breath. ? Difficulty exercising. ? Chest pain. ? Feeling tired. ? Dizziness. In some cases, there are no symptoms. How is this diagnosed? This condition may be diagnosed based on: ? Your medical history or symptoms. ? A physical exam. Your health care provider may listen to your heart. ? Tests, such as: ? Blood tests. ? An ECG (electrocardiogram) to monitor the electrical activity of your heart. ? An ambulatory personnel monitor that records your heartbeats for 24 hours or more. ? Stress tests to see how exercise affects your heart rhythm and blood supply. ? An echocardiogram, which creates an image of your heart. ? An electrophysiology study (EPS) to check for electrical problems in your heart. How is this treated? Treatment for this condition depends on any underlying conditions, the type of PVC, how many PVCs you have had, and if the symptoms are affecting your daily life. Possible treatments include: ? Avoiding things that cause PVCs (triggers). These include caffeine, tobacco, and alcohol. ? Taking medicines if symptoms are severe or if the arrhythmias happen a lot. ? Getting treatment for underlying conditions that cause PVCs. ? Having an implantable cardioverter defibrillator (ICD) placed in the chest to monitor the heartbeat. The monitor sends a shock to the heart if it senses an arrhythmia and brings the heartbeat back tonormal. ? Having a catheter ablation procedure to destroy the part of the heart tissue that sends abnormal signals. In many cases, no treatment is required. Follow these instructions at home: Lifestyle ? Do not use any products that contain nicotine or tobacco. These products include cigarettes, chewing tobacco, and vaping devices, such as e-cigarettes. If you need help quitting, ask your health careprovider. ? Do not use illegal drugs. ? Exercise regularly. Ask your health care provider what type of exercise is safe for you. ? Try to get at least 7???9 hours of sleep each night. ? Find healthy ways to manage stress. Avoid stressful situations when possible. Alcohol use ? Do not drink alcohol if: ? Your health care provider tells you not to drink. ? You are , may be , or are planning to become . ? Alcohol triggers your episodes. ? If you drink alcohol: ? Limit how much you have to: ? 0???1 drink a day for women. ? 0???2 drinks a day for men. ? Know how much alcohol is in your drink. In the [place] one drink equals one 12 oz bottle of beer (355mL), one 5 oz glass of wine (148 mL), or one 1?? oz glass of hard liquor (44 mL). General instructions ? Take qecg-iki-fsjhqln and prescription medicines only as told by your health care provider. ? If caffeine triggers episodes of PVC, do not eat, drink, or use anything with caffeine in it. Contact a health care provider if: ? You feel palpitations often. ? You have nausea and vomiting. Get help right away if: ? You have chest pain. ? You have trouble breathing. ? You start sweating for no reason. ? You become light-headed or you faint. These symptoms may be an emergency. Get help right away. Call 911. ? Do not wait to see if the symptoms will go away. ? Do not drive yourself to the hospital. This information is not intended to replace advice given to you by your health care provider. Make sure you discuss any questions you have with your health care provider. Document Revised: 12/13/2022 Document Reviewed: 12/13/2022 [email or web address] Patient Education ?? 2022 [employer] Tests Performed Radiology XR Chest 1 View 02/22/2024 20:41 EDT XR Chest 1 View 02/22/2024 21:13 EDT Lab Test Name Test Result Date/Time WBC 5.01 x10^3/mcL 02/22/2024 20:37 EDT RBC 4.65 x10^6/mcL 02/22/2024 20:37 EDT Hgb 14.5 g/dL 02/22/2024 20:37 EDT Hct 42.8 % 02/22/2024 20:37 EDT MCV 92.0 fL 02/22/2024 20:37 EDT MCH 31.2 pg 02/22/2024 20:37 EDT MCHC 33.9 g/dL 02/22/2024 20:37 EDT RDW-CV 13.6 % 02/22/2024 20:37 EDT Platelets 143 x10^3/mcL 02/22/2024 20:37 EDT MPV 9.5 fL 02/22/2024 20:37 EDT Neutro Auto 61.7 /100(WBCs) 02/22/2024 20:37 EDT Lymph Auto 29.3 /100(WBCs) 02/22/2024 20:37 EDT Schleicher Auto 7.2 /100(WBCs) 02/22/2024 20:37 EDT Eos, Auto 1.2 /100(WBCs) 02/22/2024 20:37 EDT Basophil Auto 0.40 /100(WBCs) 02/22/2024 20:37 EDT Imm Gran Auto 0.2 /100(WBCs) 02/22/2024 20:37 EDT Neutro Absolute 3.09 x10^3/mcL 02/22/2024 20:37 EDT Lymph Absolute 1.47 x10^3/mcL 02/22/2024 20:37 EDT Schleicher Absolute 0.36 x10^3/mcL 02/22/2024 20:37 EDT Eos Absolute 0.06 x10^3/mcL 02/22/2024 20:37 EDT Baso Absolute 0.02 x10^3/mcL 02/22/2024 20:37 EDT Imm Gran Absolute 0.01 x10^3/mcL 02/22/2024 20:37 EDT Glucose Level 96 mg/dL 02/22/2024 20:37 EDT BUN 20 mg/dL 02/22/2024 20:37 EDT Creatinine Level 1.04 mg/dL 02/22/2024 20:37 EDT eGFR AA 84 mL/min/1.73 m2 02/22/2024 20:37 EDT eGFR Non-AA 69 mL/min/1.73 m2 02/22/2024 20:37 EDT BUN/Creat Ratio 19 ratio 02/22/2024 20:37 EDT Calcium Level 9.4 mg/dL 02/22/2024 20:37 EDT CO2 30 mEq/L 02/22/2024 20:37 EDT Chloride Level 103 mEq/L 02/22/2024 20:37 EDT Sodium Level 139 mEq/L 02/22/2024 20:37 EDT Potassium Level 4.0 mEq/L 02/22/2024 20:37 EDT Anion Gap 10 mEq/L 02/22/2024 20:37 EDT Alk Phos 47 unit/L 02/22/2024 20:37 EDT AST 18 unit/L 02/22/2024 20:37 EDT ALT 24 unit/L 02/22/2024 20:37 EDT Protein Total 6.7 g/dL 02/22/2024 20:37 EDT Albumin Level 3.8 g/dL 02/22/2024 20:37 EDT Bilirubin Total 0.7 mg/dL 02/22/2024 20:37 EDT Globulin 2.90 mg/dL 02/22/2024 20:37 EDT A/G Ratio 1.3 02/22/2024 20:37 EDT hs Troponin-I 5 ng/L 02/22/2024 20:37 EDT BNP 52 pg/mL 02/22/2024 20:37 EDT Patient/Tower Erector Signature Patient Name:SANDY COLE Khang I have received this information and my questions have been answered. Patient/Tower Erector Name: Patient/Tower Erector Signature: Relationship to Patient: Witness Name/Signature: Date: Electronically Signed on 02/22/2024 21:33 EDT Woodrow Dunn DO Patient Care team information Care Team Personnel Name: Reji Adams Position: No Access Member Role: Primary Care Physician Address: Address: [facility] [place] [address]- Care Team Related Persons Name: DAMON TODD
--- OUTSIDE RECORDS SUMMARY | 2024-07-09 10:58 | XMS_ITS | Encounter Summary ---
Author Organization [facility] Address [address] [place] [address] Care Team Providers Care Subassembly Supervisor Name Role Phone Manuel White MD Unavailable [phone] Marcella Waller Unavailable Reji Adams MD Primary Care Provider [phone] Jonathan Young MD Unavailable [phone] Reason for Visit * Reason Onset Date Comments Patient Outreach 06/18/2022 Patient navigat ion Encounter Details Date Type Department Care Team (Late st Contact Info) Description 06/18/2022 Telephone [facility] [place] [facility] [place] [address] Marcella Waller [address] [place] [address] Patient Outreach (Patient navigation) Social History Tobacco Use Types Packs/Day Years [...] encounter Miscellaneous Notes * Telephone Encounter - Marcella Waller - 06/18/2022 1144 EST Incoming call re: Abiaterone copay assist. This navigator confirmed [facility] will renew with [facility] additionally does have access to [employer]. PT may receive a re-verification call at [facility] to confirm current insurance and income. (spoke with Nancy Cabrera from [employer] for confirmation) LVM with PT confirming RX copay support documented in this encounter Plan of Treatment Not on file documented as of this encounter Visit Diagnoses Not on filedocumented in this encounter Care Teams Subassembly Supervisor Relationship Specialty Start Date End Date Reji Adams MD [facility] [place] [address] PCP - General 12/29/21 Manuel White MD [address] [place] [address] Radiation Oncology 09/24/21 Marcella Waller [address] [facility] [place] [address] Service Restorer Emergency 09/24/21 Jonathan Young MD [address] [place] [address] [place] [address] Furnace Erector Cardiovascular Disease 03/11/22 documented as of this encounter
--- OUTSIDE RECORDS SUMMARY | 2024-07-09 10:58 | XMS_ITS | Encounter Summary ---
Author Organization [facility] Address [address] [place] [address] Care Team Providers Care Pretzel Cooker Name Role Phone Manuel White MD Unavailable [phone] Marcella Waller Unavailable Reji Adams MD Primary Care Provider [phone] Jonathan Young MD Unavailable [phone] Reason for Visit * (Routine/Next Available) - Receiving Office to Obtain Authorization Specialty Diagnoses / Procedures Referred By Duglas arizmendi Referred To Contact Procedures MR OUTSIDE IMAGES MSK Unknown, Provider, MD Referral ID Status Reason Start Date Expiration Date Visits Requested Visits Authorized [id number] Receiving Office to Obtain Authorization 04/17/2022 1 1 Encounter Details Date Type Department Care Team (Latest Contact Info) Description 03/13/2022 - 03/13/2022 23:59 EDT Hospital Encounter [facility] Secondary Reads [place] Discharge Disposition: Home or Self Care Social History Tobacco Use Types Packs/Day Years [...] 03/29/2016 8:47 EDT documented in this encounter Medications at Time of Discharge ALPRAZolam (XANAX) 0.25 mg tablet Take 0.25 mg by mouth as needed for Sleep. aspirin 81 mg EC tablet Take 81 mg by mouth daily. leuprolide (ELIGARD, 3 MONTH,) 22.5 mg injection Inject 1 mg into the skin once. 08/06/2021 multivitamin capsule Take 2 Capsules by mouth daily. pravastatin (PRAVACHOL) 20 mg tablet Take 20 mg by mouth daily. tadalafiL (CIALIS) 10 mg tablet Take 10 mg by mouth as needed for Erectile Dysfunction. As needed abiraterone 250 mg tablet Take 4 Tablets by mouth daily. 120 Tablet 2 02/12/2022 03/28/2022 gabapentin (NEURONTIN) 100 mg capsule Take 1 capsule by mouth at bedtime. 30 capsule 1 02/26/2022 12/03/2022 predniSONE (DELTASONE) 5 mg tablet Take 1 Tablet by mouth daily for 30 days. 30 Tablet 03/08/2022 04/05/2022 documented as of this encounter Discharge Disposition Disposition Code Departure Means Destination Home or Self Care documented in this encounter Plan of Treatment Not on file documented as of this encounter Procedures Procedure Name Priority Date/Time Associated Diagnosis Comments MR OUTSIDE IMAGES MSK Routine 03/13/2022 20:04 EDT documented in this encounter Results * MR OUTSIDE IMAGES MSK (03/13/2022 20:04 EDT) Narrative 04/17/2022 20:04 EDT This is a non-reportable exam. us Provider Unknown MD HUNG OTHER IMAGING ORDERABLES Final Result documented in this encounter Visit Diagnoses Not on filedocumented in this encounter Care Teams Pretzel Cooker Relationship Specialty Start Date End Date Reji Adams MD [facility] [place] [address] PCP - General 12/29/21 Manuel White MD [address] [place] [address] Radiation Oncology 09/24/21 Marcella Waller [address] [facility] [place] [address] Flavor Extractor 09/24/21 Jonathan Young MD [address] [place] [address] [place] [address] Press Puller Cardiovascular Disease 03/11/22 documented as of this encounter
--- OUTSIDE RECORDS SUMMARY | 2024-07-09 10:58 | XMS_ITS | Encounter Summary ---
Author Organization [facility] Address [address] [place] [address] Care Team Providers Care Emergency Medical Dispatcher Name Role Phone Manuel White MD Unavailable [phone] Marcella Waller Unavailable Reji Adams MD Primary Care Provider [phone] Jonathan Young MD Unavailable [phone] Reason for Visit * (Routine/Next Available) - Receiving Office to Obtain Authorization Specialty Diagnoses / Procedures Referred By Duglas arizmendi Referred To Contact Procedures MR OUTSIDE IMAGES NEURO Imaging, External Referral ID Status Reason Start Date Expiration Date Visits Requested Visits Authorized [id number] Receiving Office to Obtain Authorization 04/16/2022 1 1 Encounter Details Date Type Department Care Team (Latest Contact Info) Description 04/09/2022 - 04/09/2022 0:04 EDT Hospital Encounter [facility] Secondary Reads [place] Discharge Disposition: Home or [...] tablet Take 4 Tablets by mouth daily. Dx: C61 [id number] Tablet 2 03/28/2022 10/11/2022 gabapentin (NEURONTIN) 100 mg capsule Take 1 capsule by mouth at bedtime. 30 capsule 1 02/26/2022 12/03/2022 predniSONE (DELTASONE) 5 mg tablet Take 1 Tablet by mouth daily for 30 days. 30 Tablet 04/05/2022 05/03/2022 documented as of this encounter Discharge Disposition Disposition Code Departure Means Destination Home or Self Care documented in this encounter Plan of Treatment Not on file documented as of this encounter Procedures Procedure Name Priority Date/Time Associated Diagnosis Comments MR OUTSIDE IMAGES NEURO Routine 04/09/2022 13:48 EDT documented in this encounter Results * MR OUTSIDE IMAGES NEURO (04/09/2022 13:48 EDT) Narrative 04/16/2022 13:48 EDT This is a non-reportable exam. us External Imaging IMG OTHER IMAGING ORDERABLES Fi nal Result documented in this encounter Visit Diagnoses Not on filedocumented in this encounter Care Teams Emergency Medical Dispatcher Relationship Specialty Start Date End Date Reji Adams MD [facility] [place] [address] PCP - General 12/29/21 Manuel White MD [address] [place] [address] Radiation Oncology 09/24/21 Marcella Waller [address] [facility] [place] [address] Side Puller 09/24/21 Jonathan Young MD [address] [place] [address] [address] [place] [address] Switching Clerk Cardiovascular Disease 03/11/22 documented as of this encounter
--- OUTSIDE RECORDS SUMMARY | 2024-07-09 10:58 | XMS_ITS | Encounter Summary ---
Author Organization [facility] Address [address] [place] [address] Care Team Providers Care Palm Gatherer Name Role Phone Manuel White MD Unavailable [phone] Marcella Waller Unavailable Reji Adams MD Primary Care Provider [phone] Jonathan Young MD Unavailable [phone] Reason for Visit * (Routine/Next Available) - Receiving Office to Obtain Authorization Specialty Diagnoses / Procedures Referred By Duglas arizmendi Referred To Contact Procedures MR OUTSIDE IMAGES NEURO Imaging, External Referral ID Status Reason Start Date Expiration Date Visits Requested Visits Authorized [id number] Receiving Office to Obtain Authorization 04/16/2022 1 1 Encounter Details Date Type Department Care Team (Latest Contact Info) Description 04/09/2022 0:05 EDT - 04/09/2022 23:59 EDT Hospital Encounter [facility] Secondary Reads [place] Discharge Disposition: Home or [...] Comments MR OUTSIDE IMAGES NEURO Routine 04/09/2022 13:50 EDT documented in this encounter Results * MR OUTSIDE IMAGES NEURO (04/09/2022 13:50 EDT) Narrative 04/16/2022 13:50 EDT This is a non-reportable exam. us External Imaging IMG OTHER IMAGING ORDERABLES Fi nal Result documented in this encounter Visit Diagnoses Not on filedocumented in this encounter Care Teams Palm Gatherer Relationship Specialty Start Date End Date Reji Adams MD [facility] [place] [address] PCP - General 12/29/21 Manuel White MD [address] [place] [address] Radiation Oncology 09/24/21 Marcella Waller [address] [facility] [place] [address] Design Editor 09/24/21 Jonathan Young MD [address] [place] [address] [place] [address] Travel Occupational Therapist Cardiovascular Disease 03/11/22 documented as of this encounter
--- OUTSIDE RECORDS SUMMARY | 2024-07-09 10:58 | XMS_ITS | Encounter Summary ---
Author Organization [facility] Address [address] [place] [address] Care Team Providers Care Oracle Solutions Architect Name Role Phone Manuel White MD Unavailable [phone] Marcella Waller Unavailable Reji Adams MD Primary Care Provider [phone] Jonathan Young MD Unavailable [phone] Reason for Visit * Reason Onset Date Comments Appointment Related 05/29/2022 Encounter Details Date Type Department Care Team (Late st Contact Info) Description 05/29/2022 Telephone [facility] Adult Hematology & Oncology [address] [place] [address] Augusta Meade, [facility] [address] [facility] [address] [place] [address] Appointment Related Social History Tobacco Use Types Packs/Day Years [...] encounter Miscellaneous Notes * Telephone Encounter - Louise Mclean - 05/29/2022 1138 EDT Pt is requesting a telemedicine appt with you as soon as possible, please call thanks! documented in this encounter Plan of Treatment Not on file documented as of this encounter Visit Diagnoses Not on filedocumented in this encounter Care Teams Oracle Solutions Architect Relationship Specialty Start Date End Date Reji Adams MD [facility] [place] [address] PCP - General 12/29/21 Manuel White MD [address] [place] [address] Radiation Oncology 09/24/21 Marcella Waller [address] [facility] [place] [address] Silver Recovery Operator 09/24/21 Jonathan Young MD [address] [place] [address] [place] [address] Air Conditioning Manager Cardiovascular Disease 03/11/22 documented as of this encounter
--- OUTSIDE RECORDS SUMMARY | 2024-07-09 10:58 | XMS_ITS | Encounter Summary ---
Author Organization [facility] Address [address] [place] [address] Care Team Providers Care Wire Coiler Machine Operator Name Role Phone Manuel White MD Unavailable [phone] Marcella Waller Unavailable Reji Adams MD Primary Care Provider [phone] Jonathan Young MD Unavailable [phone] Reason for Visit * Reason Comments Stress Management Encounter Details Date Type Department Care Team (Late st Contact Info) Description 09/25/2022 10:00 EST Telemedicine [facility] Adult Hematology & Oncology [facility] [place] [address] Augusta Meade, [address] [place] [address] Adjustment disorder with mixed anxiety [...] Primary documented in this encounter Care Teams Wire Coiler Machine Operator Relationship Specialty Start Date End Date Reji Adams MD [facility] [place] [address] PCP - General 12/29/21 Manuel White MD [address] [place] [address] Radiation Oncology 09/24/21 Marcella Waller [address] [facility] [place] [address] Lighting Engineer 09/24/21 Jonathan Young MD [address] [place] [address] [address] [place] [address] Attending Pathologist Cardiovascular Disease 03/11/22 documented as of this encounter
--- OUTSIDE RECORDS SUMMARY | 2024-07-09 10:58 | XMS_ITS | Encounter Summary ---
Author Organization [facility] Address [address] [place] [address] Care Team Providers Care Human Projectile Name Role Phone Manuel White MD Unavailable [phone] Marcella Waller Unavailable Reji dAams MD Primary Care Provider [phone] Jonathan Young MD Unavailable [phone] Reason for Visit * Reason Onset Date Comments Medications Refill 06/29/2022 Encounter Details Date Type Department Care Team (Late st Contact Info) Description 06/29/2022 Refill [facility] Adult Hematology & Oncology [address] [place] [address] Pia Chu, SHERI [address] [place] [address] [address] [place] [address] Medications Refill Social History Tobacco Use Types Packs/Day Years [...] 03/29/2016 8:47 EDT documented in this encounter Ordered Prescriptions Prescription Sig Dispense Quantity Refills Last Filled Start Date End Date predniSONE (DELTASONE) 5 mg tablet Take 1 Tablet by mouth daily for 30 days. 30 Tablet 3 07/01/2022 08/03/2022 documented in this encounter Miscellaneous Notes * Telephone Encounter - Dorothy Cole RN - 07/01/2022 0814 EST From: Ken Mckeon To: Office of Pia Chu NP Sent: 06/29/2022 9:31 EST Subject: Medication Renewal Request Refills have been requested for the following medications: predniSONE (DELTASONE) 5 mg tablet [Pia Chu] Preferred pharmacy: [id number] - [address] Last seen: 04/11/[address] Espino Has f/U with Pia Chu NP 07/15/22 documented in this encounter Plan of Treatment Not on file documented as of this encounter Visit Diagnoses Not on filedocumented in this encounter Discontinued Medications Medication Sig Discontinue Reason Start Date End Da te predniSONE (DELTASONE) 5 mg tablet Take 1 Tablet by mouth daily for 30 days. Reorder 06/03/2022 06/29/2022 documented as of this encounter Care Teams Human Projectile Relationship Specialty Start Date End Date Reji Adams MD [facility] [place] [address] PCP - General 12/29/21 Manuel White MD [address] [place] [address] Radiation Oncology 09/24/[address] [place] [address] Chemist Intern 09/24/21 Jonathan Young MD [address] [place] [address] [address] [place] [address] Oceanography Professor Cardiovascular Disease 03/11/22 documented as of this encounter
--- OUTSIDE RECORDS SUMMARY | 2024-07-09 10:58 | XMS_ITS | Encounter Summary ---
Author Organization [facility] Address [address] [place] [address] Care Team Providers Care Mechanical Design Engineer Products Name Role Phone Manuel White MD Unavailable [phone] Marcella Waller Unavailable Reji Adams MD Primary Care Provider [phone] Jonathan Young MD Unavailable [phone] Reason for Visit * Reason Comments Follow-up Encounter Details Date Type Department Care Team (Late st Contact Info) Description 07/15/2022 10:30 EST Office Visit [facility] Adult Hematology & Oncology [facility] [place] [address] Pia Chu, SHERI [address] [place] [address] [address] [place] [address] Prostate cancer ([facility]) (Primary Dx) Social History Tobacco Use Types Packs/Day Years Used Date Smoking Tobacco: Never Smokeless Tobacco: Current Chew Tobacco Cessation:Ready to Q uit: Not Asked; Counseling Given: Not Answered Alcohol Use Standard Drinks/Week Comments Yes 0 [...] on file documented as of this encounter Last Filed Vital Signs Vital Sign Reading Time Taken Comments Blood Pressure 132/80 07/15/2022 1029 EST Pulse 62 07/15/2022 1029 EST Temperature - - Respiratory Rate - - Oxygen Saturation 99% 07/15/2022 1029 EST Inhaled Oxygen Concentration - - Weight 88.5 kg (195 lb) 07/15/2022 1029 EST Height - - Body Mass Index 27.61 03/12/2022 0907 EDT documented in this encounter Functional Status * Because of [...] documented in this encounter Progress Notes * Pia Chu NP - 07/15/2022 1030 EST CC: Chief Complaint Patient presents with ??? Follow-up Hematology/Oncology Problem List: Prostate cancer ([facility]) ([facility]) 07/19/2006 Initial Diagnosis ?? Prostate cancer 07/19/2006 Initial Diagnosis ??? July 19, 2006: PSA 1.89 ??? July 18, 2007: PSA 1.42 ??? June 14, 2008: PSA 1.54 ??? September 19, 2010: PSA 1.83 ??? October 24, 2011: PSA 1.96 ??? September 01, 2012: PSA 1.96 ??? November 19, 2013: PSA 2.71 ??? July 07, 2015: PSA 3.40 ??? February 07, 2017: PSA 4.78 ??? February 25, 2017: PSA 4.7 ??? March 03, 2017: PSA 6.19 04/07/2017 Biopsy April 07, 2017: Prostate biopsy revealed a 34 mL gland. There was no malignancy identified. 06/18/2017 - Cancer Staged ??? June 18, 2017: CT of abdomen pelvis showed no evidence of adenopathy. ??? October 23, 2017: PSA 6.60 ??? April 27, 2018: PSA 6.59 ??? October 26, 2018: PSA 8.11 ??? November 23, 2018: PSA 7.27 ??? December 16, 2018: MRI of the pelvis revealed a 46.38 mL gland. There was a 1.5 cm anterior peripheral zone lesion at the base and mid gland that was PI-RADS 5 with minimal bulge of the prostate contour without gross extraprostatic extension. There was no lymphadenopathy or bony metastatic disease. ??? February 03, 2019: PSA 7.20 02/08/2019 Biopsy February 08, 2019: Prostate biopsy showed a 45 mL gland. Pathology reviewed at the [facility] showed Sinan 4+5 involving 20 to 50% of 3 cores from the targeted lesion. There was an intraductal carcinoma component present. The remaining tissue was negative for malignancy. 02/08/2019 - Cancer Staged Staging form: Prostate, AJCC 8th Edition - Clinical stage from 02/08/2019: Stage IIIC (cT1c, cN0, cM0, PSA: 7.3, Grade Group: 5, 02/08/19, Sinan: 4, +: 5) 02/22/2019 - Cancer Staged February 22, 2019: Nuclear medicine bone scan at [facility] showed no evidence of bony metastatic disease ? 05/18/2019 Surgery ?? 05/18/2019 Surgery May 18, 2019: Radical prostatectomy with pathology reviewed at [facility] showed Berlin 4+5 involving 10% of the prostate. There is no lymphovascular invasion identified though there was perineural invasion. The disease was confined to the prostate without extracapsular or seminal vesicle invasion. 8 lymph nodes were examined all which were negative. The margins were clear. Decipherscore 0.90 ??? June 23, 2019: PSA 0.02 ??? October 06, 2019: PSA less than 0.01 ??? January 03, 2020: PSA less than 0.01 ??? April 20, 2020: PSA 0.02 ??? August 29, 2020: PSA 0.05 ??? September 21, 2020: PSA 0.08 ??? November 03, 2020: PSA 0.09 ??? December 08, 2020: MRI of the spine showed no bony metastatic disease ??? January 08, 2021: PSA 0.14 ??? February 07, 2021: PSA 0.172 ??? May 07, 2021: PSA 0.253 ? 07/02/2021 Cancer Staged ?? PET CT: 1. ??Mildly avid bilateral subcentimeter external iliac lymph nodes and suggestion of larger avid right external iliac lymph node, difficult to visualize on this non-contrast enhanced CT portion of the study, as above, concerning for metastases. 2. ??Mildly avid focus in the region of L2 vertebral body/pedicle without CT correlate that nonetheless raising concern for a metastatic deposit ?? 07/12/2021 Darlin Marroquin day MRI spine. ??No evidence of osseous metastasis in the lumbar spine with mild lumbar spondylosis. ?? 09/11/2021 - 10/24/2021 Radiation Therapy ?? -08/10/21: Lupron -Started radiation therapy. ?? 09/12/2021 - Chemotherapy ?? Abiraterone and prednisone. ?? Subjective: Mr. Mckeon is here for follow up in the setting of prostate cancer. He continues on Abiraterone/Prednisone. Receives androgen deprivation therapy with his urologist. Has had difficulty managing constipation. Was in the ED at [facility] for this. Miralax does not work for him. Now taking Bisacodyl with somerelief. Has a CT scan while in the ED and is concerned about the report. Review of Systems: All 10 systems have been reviewed and are negative except for the mentioned above. Medications: Current Outpatient Medications Medication ??? abiraterone 250 mg tablet ??? ALPRAZolam (XANAX) 0.25 mg tablet ??? aspirin 81 mg EC tablet ??? gabapentin (NEURONTIN) 100 mg capsule ??? leuprolide (ELIGARD, 3 MONTH,) 22.5 mg injection ??? multivitamin capsule ??? pravastatin (PRAVACHOL) 20 mg tablet ??? predniSONE (DELTASONE) 5 mg tablet ??? tadalafiL (CIALIS) 10 mg tablet No current facility-administered medications for this visit. Objective: VS: BP 132/80 Pulse 62 Wt 88.5 kg (195 lb) SpO2 99% BMI 27.61 kg/m?? Social History Socioeconomic History ??? Marital status: Single Occupational History ??? 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 Smoking status: Never ??? Smokeless tobacco: Current Types: Chew Substance and Sexual Activity ??? Alcohol use: Yes Comment: RARE Physical Exam: General appearance: Adult male in NAD. Skin: Skin color, temperature, turgor normal. No rashes or lesions. HENT: Sclera anicteric. No facial pallor. Left ear clear. Lungs: clear to auscultation bilaterally, good inspiratory effort Heart: RRR Abdomen: Extremities: No LE edema. Lymph nodes: Neuro: CN II-XII grossly intact. Alert and oriented x3. Normal affect. Cane assist. Steady gait. Performance Status:1 Data Review: Labs: Results for orders placed or performed in visit on 07/15/22 PSA, ULTRASENSITIVE, DIAGNOSTIC, S UROLOGY/ONCOLOGY USE ONLY Result Value Ref Range PSA, Ultrasensitive, S <0.01 <=6.5 ng/mL Assessment/Plan: Mr. Mckeon is a 76 yo male diagnosed with recurrent prostate cancer s/p radial prostatectomy evidenced by rising PSA and PET showing possible lymph node recurrence. Completed radiation. On treatment with Abiraterone, Prednisone, ADT. PSA is stable. Lupron q 3 months. Due next on 08/02/22. Administered by urology Anxiety: Stable Hot flashes: Has tried acupuncture in past with no relief. Has Gabapentin which he prefers not to take. 1) RTC in 1 month 2) Have requested images forwarded to [facility] for review. 30 minutes in face to face contact with 25 minutes counseling side effect, treatment management andcoordination of care. Pia Chu ANP/FLAKE OR SHRED ROLL OPERATOR [facility] Adult Hematology & Oncology * Waqas He RN - 07/15/2022 1030 EST Suspicion of Abuse: no - If yes, please document evidence: - Assessed on: 07/15/22 10:42 - Assessed by: WAQAS HE RN Procedures: - Venipuncture Performed by: WAQAS HE RN Site Collected: Right Antecubital Space Volume Withdrawn: [place] SST 8.5 mL Patient Response:Patient tolerated venipuncture well and Butterfly used Number of attempts: Collected on: 07/15/22 10:43 Ordering Provider: [facility] HEMONC Providers: Pia Chu NP documented in this encounter Plan of Treatment Not on file documented as of this encounter Procedures Procedure Name Priority Date/Time Associated Diagnosis Comments PSA, ULTRASENSITIVE, DIAGNOSTIC, S UROLOGY/ONCOLOGY USE ONLY Routine 07/15/2022 10:39 EST Prostate cancer ([facility]) documented in this encounter Results * PSA, ULTRASENSITIVE, DIAGNOSTIC, S UROLOGY/ONCOLOGY USE ONLY (07/15/2022 10:39 EST) PSA, Ultrasensitive, S <0.01 <=6.5 ng/mL 07/16/2022 11:12 EST [facility] [employer] Comment: ADDITIONAL INFORMATION INTERPRETATION: After radical prostatectomy, serum PSA concentrations should decrease and remain at undetectable levels. ??The [place] [employer] defines biochemical recurrence as an initial PSA concentration >=0.20 ng/mL followed by a subsequent confirmatory PSA concentration >=0.20 ng/mL. PLEASE NOTE: The above reference interval and flagging is intended for healthy males without prostatectomy. The testing method is an electrochemiluminescence assay manufactured by [employer] and performed on the Johanna system. Values obtained with different assay methods or kits may be different and cannot be used interchangeably. Test results cannot be interpreted as absolute evidence for the presence or absence of malignant disease. Test Performed by: [place] [address] Claims Adjuster Supervisor: Rigo Ahmadi M.D. Ph.D.; CLIA# [id number] Blood VENOUS BLOOD / Unknown Venipuncture / Unknown 07/15/2022 10:39 EST 07/15/2022 10:39 EST us Pia Chu DAY CARE ASSISTANT CHEMISTRY & BLOOD GAS JULY BOSWELL Final Result [facility] [address] [place] [address] documented in this encounter Visit Diagnoses Diagnosis Prostate cancer ([facility])- Primary Malignant neoplasm of prostate documented in this encounter Care Teams Mechanical Design Engineer Products Relationship Specialty Start Date End Date Reji Adams MD [facility] [place] [address] PCP - General 12/29/21 Manuel White MD [address] [place] [address] Radiation Oncology 09/24/21 Mareclla Waller [address] [place] [address] Asphalt Paving Superintendent 09/24/21 Jonathan Young MD [address] [place] [address] [address] [place] [address] Ship Pilot Dispatcher Cardiovascular Disease 03/11/22 documented as of this encounter
--- OUTSIDE RECORDS SUMMARY | 2024-07-09 10:58 | XMS_ITS | Referral Summary ---
Author Organization [facility] Address [address] [place] [address] Care Team Providers Care Research Test Engine Operator Name Role Phone Manuel White MD Unavailable [phone] Marcella Waller Unavailable Reji Adams MD Primary Care Provider [phone] Jonathan Young MD Unavailable [phone] Allergies Active Allergy Reactions Criticality Noted Date Comments Betamethasone 09/05/2021 Hiccups Dexamethasone Urinary Obstruction 03/31/2018 Other reaction(s): hiccups Hiccups after injection Hiccups after injection Penicillins Anaphylaxis High 02/20/2016 Triamcinolone Acetonide 09/05/2021 Hiccups Medications ALPRAZolam (XANAX) 0.25 mg tablet Take 0.25 mg by mouth as needed for Sleep. Active leuprolide (ELILAQUITAD, 3 MONTH,) 22.5 mg injection Inject 1 mg into the skin once. 2 Active pravastatin (PRAVACHOL) 20 mg tablet Take 20 mg by mouth daily. Active tadalafiL (CIALIS) 10 mg tablet Take 10 mg by mouth as needed for Erectile Dysfunction. As needed Active multivitamin capsule Take 2 Capsules by mouth daily. Active aspirin 81 mg EC tablet Take 81 mg by mouth daily. Active abiraterone 250 mg tablet Take 4 Tablets by mouth daily. Dx: C61 240 Tablet 2 3 Active Additional Information Patient not taking.Reported on 12/03/2022 predniSONE (DELTASONE) 5 mg tablet Take 5 mg by mouth daily. 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 Prostate cancer ([facility]) 08/27/2021 Cancer Staging:Pathologic stage from 05/18/2019:Stage IIIC(pT2, pN0, cM0, PSA: 8.1, Grade Group: 5) - Signed by Manuel White MD on 08/27/2021 Clinical: Unsigned Right upper extremity numbness 02/25/2016 Social History Tobacco Use Types Packs/Day Years [...] file Not on file Not on file Last Filed Vital Signs Vital Sign Reading Time Taken Comments Blood Pressure 124/70 12/03/2022 0818 EDT Pulse 62 12/03/2022 0818 EDT Temperature 36.8 ??C (98.3 ??F) 12/29/2021 1254 EDT Respiratory Rate 18 03/12/2022 0907 EDT Oxygen Saturation 100% 12/03/2022 0818 EDT Inhaled Oxygen Concentration - - Weight 84.4 kg (186 lb) 12/03/2022 0818 EDT Height 179 cm (5' 10.47) 03/12/2022 0907 EDT Body Mass Index 26.33 03/12/2022 0907 EDT Functional Status * Because of a physical, mental, or emotional condition, does this person have difficulty doing errands alone such as visiting a doctor's office or shopping? Answer Date of Assessment Author No 03/29/2016 8:47 EDT Mental Status * Because of a physical, mental, or emotional condition, does this person have serious difficulty concentrating, remembering, or making decisions? Answer Entry Date Author No 03/29/2016 8:47 EDT Plan of Treatment Not on file Insurance [facility] MEDICARE MEDICARE [facility] Care Teams Research Test Engine Operator Relationship Specialty Start Date End Date Reji Adams MD [place] [address] PCP - General 12/29/21 Manuel White MD [address] [place] [address] Radiation Oncology 09/24/21 Marcella Waller [facility] [address] [place] [phone] Liquor Inspector 09/24/21 Jonathan Young MD [address] [place] [address] [address] [place] [phone] Stonemason Helper Cardiovascular Disease 03/11/22
--- OUTSIDE RECORDS SUMMARY | 2024-07-09 10:58 | XMS_ITS | Encounter Summary ---
Author Organization [facility] Address [address] [place] [address] Care Team Providers Care Emergency Technician Name Role Phone Manuel White MD Unavailable [phone] Marcella Waller Unavailable Reji Adams MD Primary Care Provider [phone] Jonathan Young MD Unavailable [phone] Reason for Visit * Reason Comments Stress Management Encounter Details Date Type Department Care Team (Late st Contact Info) Description 07/03/2022 11:00 EST Telemedicine [facility] Adult Hematology & Oncology [facility] [place] [address] Augusta Meade, [address] [place] [address] Adjustment disorder with mixed anxiety [...] Primary documented in this encounter Care Teams Emergency Technician Relationship Specialty Start Date End Date Reji Adams [place] [address] PCP - General 12/29/21 Manuel White MD [address] [place] [phone] Radiation Oncology 09/24/21 Marcella Waller [address] [facility] [address] [place] [address] Career Specialist 09/24/21 Jonathan Young MD [address] [place] [address] [address] [place] [address] Project Associate Cardiovascular Disease 03/11/22 documented as of this encounter
--- OUTSIDE RECORDS SUMMARY | 2024-07-09 10:58 | XMS_ITS | Encounter Summary ---
Author Organization [facility] Address [address] [place] [address] Care Team Providers Care Plant Physiologist Name Role Phone Manuel White MD Unavailable [phone] Marcella Waller Unavailable Reji Adams MD Primary Care Provider [phone] Jonathan Young MD Unavailable [phone] Reason for Referral * Cardiology (Routine/Next Available) - Specialty Report Received Specialty Diagnoses / Procedures Referred By [facility] Referred To Contact Diagnoses PSVT (paroxysmal supraventricular tachycardia) ([facility]) Procedures ZIO PATCH Jonathan Young MD Phone: tel: fax: [place] Referral ID Status Reason Start Date Expiration Date V isits Requested Visits Authorized [id number] Specialty Report Received 03/12/2022 1 1 Reason for Visit * Reason Comments Follow-up Encounter Details Date Type Department Care Team (Latest Contact Info) Description 03/12/2022 9:15 EDT Office Visit [facility] Card[facility] [address] [place] [address] Jonathan Young MD [address] [facility] [place] [address] PSVT (paroxysmal supraventricular tachycardia) ([facility]) (HCC) (Primary Dx); PVC's (premature ventricular contractions) Social History Tobacco Use Types Packs/Day Years [...] Sign Reading Time Taken Comments Blood Pressure 108/70 03/12/2022 0907 EDT Pulse 68 03/12/2022 0907 EDT Temperature - - Respiratory Rate 18 03/12/2022 0907 EDT Oxygen Saturation 98% 03/12/2022 09 EDT Inhaled Oxygen Concentration - - Weight 89.8 kg (198 lb) 03/12/2022 0907 EDT Height 179 cm (5' 10.47) 03/12/2022 0907 EDT Body Mass Index 28.03 03/12/2022 0907 EDT documented in this encounter [...] documented in this encounter Progress Notes * Jonathan Young MD - 03/12/2022 0915 EDT [facility] CARDIOLOGY FOLLOW-UP Date of Service: 03/12/2022 Reason for Visit: PSVT (paroxysmal supraventricular tachycardia) ([facility]CC-[facility]) ([facility]) [I47.1] ASSESSMENT & PLAN 1. PSVT (paroxysmal supraventricular tachycardia) (HCC-[facility]) ([facility]) 2. PVC's (premature ventricular contractions) Most likely his palpitations are due to isolated PVC's. Will assess PVC and SVT burden w/ event monitor. Follow-up 8 weeks. SUBJECTIVE Ken Mckeon, 1945 76 y.o. male patient with personal history of recurrent metastatic prostate cancer, HLP, and PSVT. Lately more palpitations, mainly in the evenings causing anxiety. No sustained tachypalpitations. No sleep deprivation, dehydration or higher stress level. Chronic dependent edema controlled w/ compression stockings. Occasional lightheadedness when bending over. No fainting. Denies CP, SOB, PND. Past Surgical History: Procedure Laterality Date ??? BACK SURGERY 1989 ??? CARPAL TUNNEL RELEASE Bilateral 1975 ??? HERNIA REPAIR ??? JOINT REPLACEMENT Bilateral 04/2020 Hip Replacement ??? KNEE SURGERY Right 1964 ??? PROSTATECTOMY 05/18/2019 ??? SHOULDER SURGERY Right 1986 ??? SHOULDER SURGERY Left 1990 rotator cuff ??? TONSILLECTOMY ??? VASCULAR SURGERY Bilateral 1964 Veins stripped ??? VASECTOMY Outpatient Medications Marked as Taking for the 03/12/22 encounter (Office Visit) with Jonathan Young MD Medication Sig ??? abiraterone 250 mg tablet Take 4 Tablets by mouth daily. ??? ALPRAZolam (XANAX) 0.25 mg tablet Take 0.75 mg by mouth as needed for Sleep. ??? aspirin 81 mg EC tablet Take 81 mg by mouth daily. ??? leuprolide (ELIGARD, 3 MONTH,) 22.5 mg injection Inject 1 mg into the skin once. ??? multivitamin capsule Take 2 Capsules by mouth daily. ??? pravastatin (PRAVACHOL) 20 mg tablet Take 20 mg by mouth daily. ??? predniSONE (DELTASONE) 5 mg tablet Take 1 Tablet by mouth daily for 30 days. ??? tadalafiL (CIALIS) 10 mg tablet Take 10 mg by mouth as needed for Erectile Dysfunction. As needed Allergies: Penicillins, Betamethasone, Dexamethasone, and Triamcinolone acetonide Family History: Brother w/ ND in his 40's. Social History: Nonsmoker. No alcohol. Review of Systems: Performed; pertinent positives and negatives as mentioned above. OBJECTIVE Wt Readings from Last 3 Encounters: 03/12/22 89.8 kg (198 lb) 02/26/22 87.3 kg (192 lb 8 oz) 01/22/22 87.6 kg (193 lb 1.6 oz) BP Readings from Last 3 Encounters: 03/12/22 108/70 02/26/22 104/70 01/22/22 118/78 Pulse Readings from Last 3 Encounters: 03/12/22 68 02/26/22 73 01/22/22 60 Diagnostic Data Available records including laboratory and cardiac studies reviewed and discussed with patient; pertinent findings as mentioned above and as follows: Lab Results Component Value Date CREATININE 0.89 02/26/2022 CALCGFR 89 02/26/2022 BUN 24 02/26/2022 NA 139 02/26/2022 CL 104 02/26/2022 K 4.5 02/26/2022 ALT 18 02/26/2022 AST 31 02/26/2022 ALKPHOS 82 02/26/2022 No results found for: NTBNP, TROPONINI, URICACID, CRP Lab Results Component Value Date HGB 14.5 02/26/2022 No results found for: CHOL, HDL, LDL, LDLDIRECT, LDLBASE, TRIG Lab Results Component Value Date HGBA1C 5.1 01/15/2022 Echocardiogram 06/2021 ([facility]): EF 58%. Normal RV. No . Mild MR. Normal PAPS Zio patch 09/2021: Average HR 68, range 47 - 156 bpm. < 1% PACs and PVCs. 20 SVT episodes, longest 25 s w/ average rate of 118 bpm. Nocturnal bradycardia, no pauses or higher degree heart block. EKG 11/2021: NSR, RBBB + LAFB, no ischemic changes; rate 72/', MT 164 ms, QRS 144 ms, QTc 477 ms PHYSICAL EXAMINATION GENERAL: Pleasant, no acute distress. HEENT: Anicteric. NECK: Supple, normal jugular venous pressure. CHEST: Nontender. LUNGS: Clear to auscultation bilaterally, no rhonchi rales or wheezes. HEART: Regular rate, occasional extra beats, normal S1-S2, no murmurs. EXTREM: No cyanosis. Moderate non-pitting edema, 2+ radial pulse. SKIN: Warm and dry, no rashes. NEURO: Alert and oriented x3, grossly intact, ambulatory w/ a cane ORDERS/MEDICATION CHANGES Other Orders Placed This Visit Procedures ??? ZIO PATCH There are no discontinued medications. No orders of the defined types were placed in this encounter. Jonathan Young MD, PhD documented in this encounter Plan of Treatment Not on file documented as of this encounter Results * EXTENDED HOLTER - 14 DAY PLACED IN CLINIC (10/14/2022 10:08 EDT) Anatomical Region Laterality Modality Holter Narrative 11/05/2022 11:41 EDT ?? Occasional burst of PSVT Study indication: PAT Analysis time: 13 d 5 h Findings: 1. Average heart rate 70 bpm, range 46 - 167 bpm 2. Rare PVC's. No [place] 3. 1.8 % PAC's. 40 episodes of SVT, average rate 122 bpm; longest 11 s with average rate of 123 bpm 4. No critical pauses or higher degree heart block 11 patient event(s). 5 events correlates with isolated PAC's, 1 event with SVT. All other events did not correlate with arrhthymias. Jonathan Young MD CARDIAC SERVICES ORDERABLES Fi nal Result documented in this encounter Visit Diagnoses Diagnosis PSVT (paroxysmal supraventricular tachycardia) ([facility]CC-[facility])- Primary Paroxysmal supraventricular tachycardia PVC's (premature ventricular contractions) Other premature beats PSVT (paroxysmal supraventricular tachycardia) (HCC-CMS) Paroxysmal supraventricular tachycardia documented in this encounter Care Teams Plant Physiologist Relationship Specialty Start Date End Date Reji Adams MD [facility] [place] [address] PCP - General 12/29/21 Manuel White MD [address] [place] [address] Radiation Oncology 09/24/21 Marcella Waller [address] [place] [address] Outreach Nurse 09/24/21 Jonathan Young MD [address] [place] [address] [address] [place] [address] Wood Caulker Cardiovascular Disease 03/11/22 documented as of this encounter
--- OUTSIDE RECORDS SUMMARY | 2024-07-09 10:58 | XMS_ITS | Encounter Summary ---
Author Organization [facility] Address [address] [place] [address] Care Team Providers Care Advice Clerk Name Role Phone Manuel White MD Unavailable [phone] Marcella Waller Unavailable Reji Adams MD Primary Care Provider [phone] Jonathan Young MD Unavailable [phone] Reason for Visit * Reason Onset Date Comments New/Evolving Symptoms 06/30/2023 Palpitatio ns, chest pressure Encounter Details Date Type Department Care Team (Late st Contact Info) Description 06/30/[address] [facility] [address] [place] [address] Vannesa Martinez RN New/Evolving Symptoms (Palpitations, chest pressure ) Social History Tobacco Use Types Packs/Day Years [...] Telephone Encounter - Vannesa Martinez RN - 06/30/2023 1053 EST Patient calling requesting follow up appt with Dr. Young. States was see in [facility] ED on Thursday 06/28 with racing HR and palpitations. He states episodes havestarted about 1 1/2 weeks ago, have become more pronounced and are happening throughout the day. Heis unable to sleep and has chest pressure with the longer episodes, nothing will resolve these episodes except for sitting and resting. Request to [facility] for ED records and OV scheduled for 06/30/2023 at 1515, patient is aware. documented in this encounter Plan of Treatment Not on file documented as of this encounter Visit Diagnoses Not on filedocumented in this encounter Care Teams Advice Clerk Relationship Specialty Start Date End Date Reji Adams MD [facility] [place] [address] PCP - General 12/29/21 Manuel White MD [address] [place] [address] Radiation Oncology 09/24/21 Marcella Waller [address] [place] [address] Folder Hand 09/24/21 Jonathan Young MD [address] [place] [address] [address] [place] [address] Electronic Publications Specialist Cardiovascular Disease 03/11/22 documented as of this encounter
--- OUTSIDE RECORDS SUMMARY | 2024-07-09 10:58 | XMS_ITS | Clinical Summary ---
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 Prostate cancer ([facility]) 08/27/2021 Cancer Staging:Pathologic stage from 05/18/2019:Stage IIIC(pT2, pN0, cM0, PSA: 8.1, Grade Group: 5) - Signed by Manuel White MD on 08/27/2021 Clinical: Unsigned Right upper extremity numbness 02/25/2016 Surgical History Surgery Date Site/Laterality Comments TONSILLECTOMY KNEE SURGERY 07/28/1964 - 07/27/1965 Right VASCULAR SURGERY 07/28/1964 - 07/27/1965 Bilateral Veins stripped VASECTOMY CARPAL TUNNEL RELEASE 07/28/1975 - 07/27/1976 Bilateral BACK SURGERY 07/28/1989 - 07/27/1990 SHOULDER SURGERY 07/28/1986 - 07/27/1987 Right SHOULDER SURGERY 07/28/1990 - 07/27/1991 Left rotator cuff HERNIA REPAIR PROSTATECTOMY 05/18/2019 JOINT REPLACEMENT 04/27/2020 - 05/27/2020 Bilateral Hip Replacement Medical History Medical History Date Comments Asthma Prostate cancer ([facility]) Family History Medical History Relation Comments Aneurysm Brother Cancer Mother Relation Status Comments Brother Mother BONE Social History Tobacco Use Types Packs/Day Years [...] file Not on file Not on file Obstetrics History Last Filed Vital Signs Vital Sign Reading [...] Body Mass Index 26.33 03/12/2022 0907 EDT Plan of Treatment Health Maintenance Due Date Last Done Comments Hepatitis C Screen 1945 COVID-19 Vaccine (#1) 10/05/1950 Fall Risk Screening 10/05/2011 RSV Immunization ( o r 60+ Years) (1 - 1-dose 75+ series) 2021 Insurance [facility] Address: [address] [address] MEDICARE MEDICARE [facility] [place] [facility] Address: [address] [place] [address] Care Teams Supervisor Malt House Relationship Specialty Start Date End Date Reji Adams MD [facility] [place] [address] PCP - General 12/29/21 Manuel White MD [address] [place] [address] Radiation Oncology 09/24/21 Marcella Waller [address] [place] [address] Manufacturing Operator 09/24/21 Jonathan Young MD [address] [place] [address]-[address] [place] [address] Toddler Lead Teacher Cardiovascular Disease 03/11/22
--- OUTSIDE RECORDS SUMMARY | 2024-07-09 10:58 | XMS_ITS | Encounter Summary ---
Author Organization [facility] Address [address] [place] [address] Care Team Providers Care Shank Faker Name Role Phone Manuel White MD Unavailable [phone] Marcella Waller Unavailable Reji Adams MD Primary Care Provider [phone] Jonathan Young MD Unavailable [phone] Reason for Visit * Reason Onset Date Comments Labs Only 10/15/2022 Encounter Details Date Type Department Care Team (Late st Contact Info) Description 10/15/2022 Telephone [facility] Adult Hematology & Oncology [facility] [place] [address] Pia Chu, SHERI [address] [place] [address] [address] [place] [address] Labs Only Social History Tobacco Use Types Packs/Day Years [...] encounter Miscellaneous Notes * Telephone Encounter - Pat Sommer RN - 10/15/2022 0953 EDT 10/15/22 9:53 Pt. Notified of results. Verbally dicussed w/ SH. * Telephone Encounter - Alfreda Garcia - 10/15/2022 0919 EDT Patient called and would like call back to discuss psa documented in this encounter Plan of Treatment Not on file documented as of this encounter Visit Diagnoses Not on filedocumented in this encounter Care Teams Shank Faker Relationship Specialty Start Date End Date Reji Adams MD [facility] [place] [address] PCP - General 12/29/21 Manuel White MD [address] [place] [address] Radiation Oncology 09/24/21 Marcella Waller [address] [place] [address] RD[address] [place] [address] Blast Furnace Operator 09/24/21 Jonathan Young MD [address] [place] [address] [address] [place] [address] Supervisor Communications And Signals Cardiovascular Disease 03/11/22 documented as of this encounter
--- OUTSIDE RECORDS SUMMARY | 2024-07-09 10:58 | XMS_ITS | Encounter Summary ---
Author Organization [facility] Address [address] [place] [address] Care Team Providers Care Waiter/Waitress Counter Name Role Phone Manuel White MD Unavailable [phone] Marcella Waller Unavailable Reji Adams MD Primary Care Provider [phone] Jonathan Young MD Unavailable [phone] Reason for Visit * Reason Onset Date Comments Medications Refill 03/28/2022 Encounter Details Date Type Department Care Team (Late st Contact Info) Description 03/28/2022 Refill [facility] Adult Hematology & Oncology [address] [place] [address] Dorothy Cole RN Medications Refill Social History Tobacco Use Types [...] Refills Last Filled Start Date End Date abiraterone 250 mg tablet Take 4 Tablets by mouth daily. Dx: C61 240 Tablet 2 03/28/2022 3 documented in this encounter Miscellaneous Notes * Telephone Encounter - Dorothy Cole RN - 03/28/2022 0821 EDT Refill request received via prescription line from [facility] for Shay. Last seen: 02/26/22 Patient has f/u: 04/11/22 Please review and sign if appropriate Thank you documented in this encounter Plan of Treatment Not on file documented as of this encounter Visit Diagnoses Not on filedocumented in this encounter Discontinued Medications Medication Sig Discontinue Reason Start Date End Da te abiraterone 250 mg tablet Take 4 Tablets by mouth daily. Reorder 02/12/2022 03/28/2022 documented as of this encounter Care Teams Waiter/Waitress Counter Relationship Specialty Start Date End Date Reji Adams MD [facility] [place] [address] PCP - General 12/29/21 Manuel White MD [address] [place] [address] Radiation Oncology 09/24/21 Marcella Waller [address] [facility] [place] [address] Cfo 09/24/21 Jonathan Young MD [address] [place] [address] [address] [place] [address] Commutator Repairer Cardiovascular Disease 03/11/22 documented as of this encounter
--- OUTSIDE RECORDS SUMMARY | 2024-07-09 10:58 | XMS_ITS | Encounter Summary ---
Author Organization [facility] Address [address] [place] [address] Care Team Providers Care Information Technology Consultant Name Role Phone Manuel White MD Unavailable [phone] Marcella Waller Unavailable Reji Adams MD Primary Care Provider [phone] Jonathan Young MD Unavailable [phone] Reason for Visit * Cardiology (Routine/Next Available) - Specialty Report Received Specialty Diagnoses / Procedures Referred By [facility] Referred To Contact Diagnoses PSVT (paroxysmal supraventricular tachycardia) ([facility]) Procedures ZIO Jonathan Botello MD Phone: tel: fax: [facility] Referral ID Status Reason Start Date Expiration Date V isits Requested Visits Authorized [id number] Specialty Report Received 03/12/2022 1 1 Encounter Details Date Type Department Care Team (Latest Contact Info) Description 10/14/2022 10:00 EDT Ancillary Procedure [facility] Cardiology Clinic [address] [place] [address] PSVT (paroxysmal supraventricular tachycardia) Social History Tobacco Use Types Packs/Day Years [...] Procedure Name Priority Date/Time Associated Diagnosis Comments EXTENDED HOLTER MONITOR (7 OR 14 DAY) Routine 10/14/2022 10:08 EDT PSVT (paroxysmal supraventricular tachycardia) documented in this encounter Results * EXTENDED HOLTER - [...] Diagnoses Diagnosis PSVT (paroxysmal supraventricular tachycardia) ([facility]) Paroxysmal supraventricular tachycardia documented in this encounter Care Teams Information Technology Consultant Relationship Specialty Start Date End Date Reji Adams MD [facility] [place] [address] PCP - General 12/29/21 Manuel White MD [address] [place] [address] Radiation Oncology 09/24/[address] [place] [address] Card Checker 09/24/21 Jonathan Young MD [address] [place] [address] [address] [place] [address] Stitch Bonding Machine Drawer In Cardiovascular Disease 03/11/22 documented as of this encounter
--- OUTSIDE RECORDS SUMMARY | 2024-07-09 10:58 | XMS_ITS | Encounter Summary ---
Author Organization [facility] Address [address] [place] [address] Care Team Providers Care Foster Parent Name Role Phone Manuel White MD Unavailable [phone] Marcella Waller Unavailable Reji Adams MD Primary Care Provider [phone] Jonathan Young MD Unavailable [phone] Reason for Visit * Reason Onset Date Comments Medications Refill 06/02/2022 Encounter Details Date Type Department Care Team (Late st Contact Info) Description 06/02/2022 Refill [facility] Adult Hematology & Oncology [address] [place] [address] Pia Chu, SHERI [address] [place] [address] [address] [place] [address] Medications Refill Social History Tobacco [...] daily for 30 days. 30 Tablet 3 06/03/2022 06/29/2022 documented in this encounter Miscellaneous Notes * Telephone Encounter - Loreta He RN - 06/03/2022 0835 EST Refill request for Prednisone Last office visit ET 04/11/22 PLAN: ?? 1. ??Continue abiraterone and prednisone. He will continue Lupron under the supervision of his urologist. 2. Return for follow-up in 2-3 months. Pending visit 07/15/22 with SH Last filled #30 05/03/22 Please sign and send if you agree. * Telephone Encounter - Loreta He RN - 06/03/2022 0834 ESTFrom: Ken Mckeon To: Office of Pia Chu NP Sent: 06/02/2022 10:35 EST Subject: Medication Renewal Request Refills have been requested for the following medications: predniSONE (DELTASONE) 5 mg tablet [Lindsay Espino] Preferred pharmacy: [facility][id number] - [address] documented in this encounter Plan of Treatment Not on file documented as of this encounter Visit Diagnoses Not on filedocumented in this encounter Discontinued Medications Medication Sig Discontinue Reason Start Date End Da te predniSONE (DELTASONE) 5 mg tablet Take 1 Tablet by mouth daily for 30 days. Reorder 05/03/2022 06/02/2022 documented as of this encounter Care Teams Foster Parent Relationship Specialty Start Date End Date Reji Adams [place] [address] PCP - General 12/29/21 Manuel White MD [address] [place] [address] Radiation Oncology 09/24/21 Marcella Waller [address] [facility] [place] [address] Pl Sql Programmer 09/24/21 Jonathan Young MD [address] [place] [address] [address]OB[address]A [address] [place] [address] Insurance Plan Specialist Cardiovascular Disease 03/11/22 documented as of this encounter
--- OUTSIDE RECORDS SUMMARY | 2024-07-09 10:58 | XMS_ITS | Encounter Summary ---
Author Organization [facility] Address [address] [place] [address] Care Team Providers Care Clay Carman Name Role Phone Manuel White MD Unavailable [phone] Marcella Waller Unavailable Reji Adams MD Primary Care Provider [phone] Jonathan Young MD Unavailable [phone] Reason for Visit * Reason Onset Date Comments Appointment Related 09/27/2022 Encounter Details Date Type Department Care Team (Late st Contact Info) Description 09/27/2022 Telephone [facility] Cardiology Clinic [address] [place] [address] Jonathan Young MD [address] [facility] [place] [address] Appointment Related Social History Tobacco Use Types [...] encounter Miscellaneous Notes * Telephone Encounter - Santso Russell - 10/03/2022 0854 EST Pt getting ZIO patch on 10/14/2022 @1000 * Telephone Encounter - Jonathan Young MD - 09/27/2022 1521 EST If he doesn't want arrhythmia assessment, no need to see him * Telephone Encounter - Santos Russell - 09/27/2022 1504 EST FYI- Pt was placed in recall in March due to cancelling appt, as he was having to focus on someother medical issues he was experiencing at the time. Pt was called to get rescheduled for f/u as he is over-due for one. He has been scheduled to next avail 12/24/2022 @1245. Back in March he wassupposed to get a Zio-patch placed prior to an 8-week f/u, however Pt denied ZIO. Routing to you asan DANNYI in case any testing is needed prior to his F/U in November documented in this encounter Plan of Treatment Not on file documented as of this encounter Visit Diagnoses Not on filedocumented in this encounter Care Teams Clay Carman Relationship Specialty Start Date End Date Reji Adams MD [facility] [place] [address] PCP - General 12/29/21 Manuel White MD [address] [place] [address] Radiation Oncology 09/24/21 Marcella Waller [address] [place] [address] Facing Baster 09/24/21 Jonathan Young MD [address] [place] [address] [address] [place] [address] Hospitality Internship Cardiovascular Disease 03/11/22 documented as of this encounter
--- OUTSIDE RECORDS SUMMARY | 2024-07-09 10:58 | XMS_ITS | Encounter Summary ---
Author Organization [facility] Address [address] [place] [address] Care Team Providers Care Trestle Mechanic Name Role Phone Manuel White MD Unavailable [phone] Marcella Waller Unavailable Reji Adams MD Primary Care Provider [phone] Jonathan Young MD Unavailable [phone] Reason for Visit * Reason Comments Stress Management Encounter Details Date Type Department Care Team (Late st Contact Info) Description 06/04/2022 11:00 EST Telemedicine [facility] Adult Hematology & Oncology [facility] [place] [address] Augusta Meade, [address] [place] [address] Adjustment disorder with mixed anxiety [...] Primary documented in this encounter Care Teams Trestle Mechanic Relationship Specialty Start Date End Date Reji Adams MD [facility] [place] [address] PCP - General 12/29/21 Manuel White MD [address] [place] [address] Radiation Oncology 09/24/21 Marcella Waller [address] [facility] [place] [address] Automobile Tester 09/24/21 Jonathan Young MD [address] [place] [address] [address] [place] [address] Homicide Squad Commanding Officer Cardiovascular Disease 03/11/22 documented as of this encounter
--- OUTSIDE RECORDS SUMMARY | 2024-07-09 10:58 | XMS_ITS | Encounter Summary ---
Author Organization [facility] Address [address] [place] [address] Care Team Providers Care Heavy Truck Technician Name Role Phone Manuel White MD Unavailable [phone] Marcella Waller Unavailable Reji Adams MD Primary Care Provider [phone] Jonathan Young MD Unavailable [phone] Reason for Visit * Reason Onset Date Comments Medications Refill 05/03/2022 Encounter Details Date Type Department Care Team (Late st Contact Info) Description 05/03/2022 Refill [facility] Adult Hematology & Oncology [address] [place] [address] Pia Chu, SHERI [address] [place] [address] [address] [place] [address] Medications Refill Social History Tobacco [...] mouth daily for 30 days. 30 Tablet 05/03/2022 06/02/2022 documented in this encounter Miscellaneous Notes * Telephone Encounter - Scarlet Oates RN - 05/03/2022 1509 EDT Refill request for prednisone 5 mg tablet from patient. Last filled: 04/05/22 Last seen: 04/11/22 PLAN: ?? 1. ??Continue abiraterone and prednisone. He will continue Lupron under the supervision of his urologist. 2. Return for follow-up in 2-[address] Espino - Please review and sign if agree. * Telephone Encounter - Scarlet Oates RN - 05/03/2022 1508 EDTFrom: Ken Mckeon To: Office of Pia Chu NP Sent: 05/03/2022 15:01 EDT Subject: Medication Renewal Request Refills have been requested for the following medications: predniSONE (DELTASONE) 5 mg tablet [Lindsay Espino MD] Preferred pharmacy: [id number] - [place], [place] - [address] [facility] documented in this encounter Plan of Treatment Not on file documented as of this encounter Visit Diagnoses Not on filedocumented in this encounter Discontinued Medications Medication Sig Discontinue Reason Start Date End Da te predniSONE (DELTASONE) 5 mg tablet Take 1 Tablet by mouth daily for 30 days. Reorder 04/05/2022 05/03/2022 documented as of this encounter Care Teams Heavy Truck Technician Relationship Specialty Start Date End Date Reji Adams MD [facility] [place] [place] [address] PCP - General 12/29/21 Manuel White MD [address] [place] [address] Radiation Oncology 09/24/21 Marcella Waller [address] [facility] [place] [address] Gas Desulfurizer 09/24/21 Jonathan Young MD [address] [place] [address] [address] [place] [address] Boilermaker Fitter Cardiovascular Disease 03/11/22 documented as of this encounter
--- OUTSIDE RECORDS SUMMARY | 2024-07-09 10:58 | XMS_ITS | Encounter Summary ---
Author Organization [facility] Address [address] [place] [address] Care Team Providers Care Sports Director Name Role Phone Manuel White MD Unavailable [phone] Marcella Waller Unavailable Reji Adams MD Primary Care Provider [phone] Jonathan Young MD Unavailable [phone] Reason for Visit * Reason Onset Date Comments Results 04/23/2022 Encounter Details Date Type Department Care Team (Late st Contact Info) Description 04/23/2022 Telephone [facility] [place] [address] [place] [address] Manuel White MD [address] [facility] [address] [place] [address] Results Social History Tobacco Use Types Packs/Day Years [...] encounter Miscellaneous Notes * Telephone Encounter - Manuel White MD - 04/23/2022 0930 EDT I called Gregg ariza as he is currently undergoing evaluation of a insufficiency sacral fracture as well as an L5 insufficiency fracture. He has been undergoing evaluation at [facility] and a procedurefor L5 vertebroplasty and sacroplasty has been entertained. He reports he has not yet met with a surgeon at [facility] and he plans to be evaluated in orthopedics in [facility]. We discussed that his prior pelvic radiation and his ongoing androgen deprivation could have contributed to his insufficiency fractures. documented in this encounter Plan of Treatment Not on file documented as of this encounter Visit Diagnoses Not on filedocumented in this encounter Care Teams Sports Director Relationship Specialty Start Date End Date Reji Adams MD [facility] [place] [address] PCP - General 12/29/21 Manuel White MD [address] [place] [address] Radiation Oncology 09/24/21 Marcella Waller [address] [facility] [place] [address] Gastroenterology Manager 09/24/21 Jonathan Young MD [address] [place] [address] [address]OB[address]A [address] [place] [address] Plaster Molder Cardiovascular Disease 03/11/22 documented as of this encounter
--- OUTSIDE RECORDS SUMMARY | 2024-07-09 10:58 | XMS_ITS | Encounter Summary ---
Author Organization [facility] Address [address] [place] [id number] Care Team Providers Care Head Turning Machine Operator Name Role Phone Manuel White MD Unavailable [phone] Marcella Waller Unavailable Reji Adams MD Primary Care Provider [phone] Jonathan Young MD Unavailable [phone] Reason for Visit * Reason Onset Date Comments Medications Refill 08/03/2022 Encounter Details Date Type Department Care Team (Late st Contact Info) Description 08/03/2022 Refill [facility] Adult Hematology & Oncology [address] [place] [address] Pia Chu, SHERI [address] [place] [address] [address] [place] [address] Medications Refill Social History Tobacco [...] daily for 30 days. 30 Tablet 3 08/05/2022 09/04/2022 documented in this encounter Miscellaneous Notes * Telephone Encounter - Pat Sommer RN - 08/05/2022 0811 EST Refill request from patient - Last seen: 07/15/2022 Assessment/Plan: ?? Mr. Mckeon is a 76 yo male diagnosed with recurrent prostate cancer s/p radial prostatectomy evidenced by rising PSA and PET showing possible lymph node recurrence. Completed radiation. On treatment with Abiraterone, Prednisone, ADT. PSA is stable. Last refilled: 07/01/2022 JOSE CARLOS - Agree w/ attached? * Telephone Encounter - Pat Sommer RN - 08/05/2022 0811 ESTFrom: Ken Mckeon To: Office of Pia Chu NP Sent: 08/03/2022 10:09 EST Subject: Medication Renewal Request Refills have been requested for the following medications: predniSONE (DELTASONE) 5 mg tablet [Pia Chu] Preferred pharmacy: [id number] - [place], [place] - [address] [facility] documented in this encounter Plan of Treatment Not on file documented as of this encounter Visit Diagnoses Not on filedocumented in this encounter Discontinued Medications Medication Sig Discontinue Reason Start Date End Da te predniSONE (DELTASONE) 5 mg tablet Take 1 Tablet by mouth daily for 30 days. Reorder 07/01/2022 08/03/2022 documented as of this encounter Care Teams Head Turning Machine Operator Relationship Specialty Start Date End Date Reji Adams MD [facility] [place] [address] PCP - General 12/29/21 Manuel White MD [address] [place] [address] Radiation Oncology 09/24/21 Marcella Waller [address] [facility] [place] [address] Separator Operator 09/24/21 Jonathan Young MD [address] [place] [address] [place] [address] Cork Tipper Cardiovascular Disease 03/11/22 documented as of this encounter
--- OUTSIDE RECORDS SUMMARY | 2024-07-09 10:58 | XMS_ITS | Encounter Summary ---
Author Organization [facility] Address [address] [place] [address] Care Team Providers Care Cop Winder Name Role Phone Manuel White MD Unavailable [phone] Marcella Waller Unavailable Reji Adams MD Primary Care Provider [phone] Jonathan Young MD Unavailable [phone] Reason for Visit * Reason Onset Date Comments Medications Refill 04/05/2022 Encounter Details Date Type Department Care Team (Late st Contact Info) Description 04/05/[address] [facility] Adult Hematology & Oncology [address] [place] [address] Pat Sommer RN Medications Refill Social History Tobacco Use [...] 30 days. 30 Tablet 04/05/2022 05/03/2022 documented in this encounter Miscellaneous Notes * Telephone Encounter - Pat Sommer RN - 04/05/2022 1151 EDT Patient requested refill of prednisone - Last refilled: 03/08/2022 Last seen: 02/26/2022 - He has a future appt. On 04/11/2022 Mr. Mckeon is a 76 yo male diagnosed with recurrent prostate cancer s/p radial prostatectomy evidenced by rising PSA and PET showing possible lymph node recurrence. Initiated treatment with Abiraterone, Prednisone, ADT and radiation. ?? DR. KNIGHT- Agree w/ refill? Please sign. documented in this encounter Plan of Treatment Not on file documented as of this encounter Visit Diagnoses Not on filedocumented in this encounter Discontinued Medications Medication Sig Discontinue Reason Start Date End Da te predniSONE (DELTASONE) 5 mg tablet Take 1 Tablet by mouth daily for 30 days. Reorder 03/08/2022 04/05/2022 documented as of this encounter Care Teams Cop Winder Relationship Specialty Start Date End Date Reji Adams MD [facility] [place] [address] PCP - General 12/29/21 Manuel White MD [address] [place] [address] Radiation Oncology 09/24/[address] [place] [address] Live Out Nanny 09/24/21 Jonathan Young MD [address] [place] [address] [address] [place] [address] Catering Coordinator Cardiovascular Disease 03/11/22 documented as of this encounter
--- OUTSIDE RECORDS SUMMARY | 2024-07-09 10:58 | XMS_ITS | Encounter Summary ---
Author Organization [facility] Address [address] [place] [address] Care Team Providers Care Ornamental Metal Worker Apprentice Name Role Phone Manuel White MD Unavailable [phone] Marcella Waller Unavailable Reji Adams MD Primary Care Provider [phone] Jonathan Young MD Unavailable [phone] Reason for Visit * Reason Comments Irregular Heart Beat Encounter Details Date Type Department Care Team (Latest Contact Info) Description 12/03/2022 8:15 EDT Office Visit [facility] [address] [place] [address] Jonathan Young MD [address] [facility] [place] [address] PSVT (paroxysmal supraventricular tachycardia) (Primary Dx) Social [...] EDT Pulse 62 12/03/2022 0818 EDT Temperature - - Respiratory Rate - - Oxygen Saturation 100% 12/03/2022 0818 EDT Inhaled Oxygen Concentration - - Weight 84.4 kg (186 lb) 12/03/2022 0818 EDT Height - - Body Mass Index 26.33 03/12/2022 0907 EDT documented in this encounter [...] Progress Notes * Jonathan Young MD - 12/03/2022 0815 EDT CARDIOLOGY FOLLOW-UP Date of Service: 12/03/2022 Reason for Visit: PSVT (paroxysmal supraventricular tachycardia) (HCC-CMS) ([facility]) [I47.1] ASSESSMENT & PLAN 1. PSVT (paroxysmal supraventricular tachycardia) (HCC-CMS) ([facility]) Non-sustained and low burden thus no need for intervention. Follow-up PRN SUBJECTIVE Ken Mckeon, 1945 77 y.o. male patient with family history of premature CAD and personal history of recurrent metastatic prostate cancer, HLP, and PSVT. Ken Mckeon reports heart pounding, SOB (I can't catch my breath) and fluctuating BP. This seems to be triggered by anxiety/stress and improves w/ anxiolytic. Having stopped one of his chemo agents has helped as well. He denies sustained tachypalpitations. He has not fainted. He walks daily w/o cardiopulmonary limitations. He has chronic dependent edema controlled w/ compression stockings. He reports constipation. He is anemic but denies GI or bleed. Past Surgical History: Procedure Laterality Date ??? BACK SURGERY 1989 ??? CARPAL TUNNEL RELEASE Bilateral 1975 ??? HERNIA REPAIR ??? JOINT REPLACEMENT Bilateral 04/2020 Hip Replacement ??? KNEE SURGERY Right 1964 ??? PROSTATECTOMY 05/18/2019 ??? SHOULDER SURGERY Right 1986 ??? SHOULDER SURGERY Left 1990 rotator cuff ??? TONSILLECTOMY ??? VASCULAR SURGERY Bilateral 1965 Veins stripped ??? VASECTOMY Outpatient Medications Marked as Taking for the 12/03/22 encounter (Office Visit) with Jonathan Young MD Medication Sig ??? ALPRAZolam (XANAX) 0.25 mg tablet Take 0.25 [...] ??? predniSONE (DELTASONE) 5 mg tablet Take 5 mg by mouth daily. ??? tadalafiL (CIALIS) 10 mg tablet Take 10 mg by mouth as needed for Erectile Dysfunction. As needed Allergies: Penicillins, Betamethasone, Dexamethasone, and Triamcinolone acetonide Family History: Brother w/ NE in his 40's. Social History: Nonsmoker. No alcohol. Review of Systems: Performed; pertinent positives and negatives as mentioned above. OBJECTIVE Wt Readings from Last 3 Encounters: 12/03/22 84.4 kg (186 lb) 10/14/22 85.7 kg (189 lb) 07/15/22 88.5 kg (195 lb) BP Readings from Last 3 Encounters: 12/03/22 124/70 10/14/22 120/76 07/15/22 132/80 Pulse Readings from Last 3 Encounters: 12/03/22 62 10/14/22 70 07/15/22 62 Diagnostic Data: Available records including laboratory and cardiac studies reviewed and discussed with patient. Lab Results Component Value Date CREATININE 0.77 10/14/2022 CALCGFR 93 10/14/2022 BUN 17 10/14/2022 NA 139 10/14/2022 CL 105 10/14/2022 K 4.0 10/14/2022 ALT 20 10/14/2022 AST 27 10/14/2022 ALKPHOS 74 10/14/2022 No results found for: NTBNP, TROPONINI, URICACID, CRP Lab Results Component Value Date HGB 13.2 (L) 10/14/2022 No results found for: CHOL, HDL, LDL, [...] + LAFB, no ischemic changes; rate 72/', OR 164 ms, QRS 144 ms, QTc 477 ms Zio patch 09/2022 1. Average heart rate 70 bpm, range 46 - 167 bpm 2. Rare PVC's. No [place] 3. 1.8 % PAC's. 40 episodes of SVT, average rate 122 bpm; longest 11 s with average rate of 123 bpm 4. No critical pauses or higher degree heart block PHYSICAL EXAMINATION GENERAL: No acute distress. HEENT: Anicteric. NECK: Supple, normal jugular venous pressure. CHEST: Nontender. LUNGS: Clear to auscultation bilaterally, no rhonchi rales or wheezes. HEART: Regular rate and rhythm, normal S1-S2, no murmurs. EXTREM: No cyanosis. Moderate non-pitting edema, 2+ radial pulse. SKIN: Warm and dry, no rashes. NEURO: Alert and oriented x3, grossly intact, ambulatory w/ a cane ORDERS/MEDICATION CHANGES No orders of the defined types were placed in this encounter. There are no discontinued medications. No orders of the defined types were placed in this encounter. Time in encounter: 30 min Jonathan Young MD, PhD documented in this encounter Plan of Treatment Not on file documented as of this encounter Visit Diagnoses Diagnosis PSVT (paroxysmal supraventricular tachycardia) ([facility])- Primary Paroxysmal supraventricular tachycardia documented in this encounter Discontinued Medications Medication Sig Discontinue Reason Start Date End Da te gabapentin (NEURONTIN) 100 mg capsule Take 1 capsule by mouth at bedtime. 02/26/2022 12/03/2022 documented as of this encounter Historical Medications * This list may reflect changes made after this encounter. predniSONE (DELTASONE) 5 mg tablet Take 5 mg by mouth daily. 10/29/2022 added in this encounter Care Teams Ornamental Metal Worker Apprentice Relationship Specialty Start Date End Date Reji Adams MD [facility] [place] [address] PCP - General 12/29/21 Manuel White MD [address] [place] [address] Radiation Oncology 09/24/21 Marcella Waller [address] [facility] [place] [address] Supervisor Cereal 09/24/21 Jonathan Young MD [address] [place] [address] [place] [address] Barrel Drum Cutter Cardiovascular Disease 03/11/22 documented as of this encounter
--- OUTSIDE RECORDS SUMMARY | 2024-07-09 10:58 | XMS_ITS | Encounter Summary ---
Author Organization [facility] Address [address] [place] [id number] Care Team Providers Care Senior Research Fellow Name Role Phone Manuel White MD Unavailable [phone] Marcella Waller Unavailable Reji Adams MD Primary Care Provider [phone] Jonathan Young MD Unavailable [phone] Reason for Visit * Reason Comments Follow-up Met prostate surveil anam Encounter Details Date Type Department Care Team (Late st Contact Info) Description 10/14/2022 11:00 EDT Office Visit [facility] Adult Hematology & Oncology [facility] [place] [address] Pia Chu, SHERI [address] [place] [address] [address] [place] [address] Prostate cancer (HCC-CMS) (Primary Dx) Social History Tobacco Use Types [...] Sign Reading Time Taken Comments Blood Pressure 120/76 10/14/2022 1043 EDT Pulse 70 10/14/2022 1043 EDT Temperature - - Respiratory Rate - - Oxygen Saturation 98% 10/14/2022 1043 EDT Inhaled Oxygen Concentration - - Weight 85.7 kg (189 lb) 10/14/2022 1043 EDT Height - - Body Mass Index 26.76 03/12/2022 0907 EDT documented in this encounter [...] in this encounter Progress Notes * Pia Chu, AUGER MACHINE OFFBEARER - 10/14/2022 1100 EDT CC: Chief Complaint Patient presents with ??? Follow-up Met prostate surveillance Hematology/Oncology Problem List: Prostate cancer ([facility]) ([facility]) 07/19/2006 Initial Diagnosis ?? Prostate cancer 07/19/2006 [...] [facility]ology reviewed at [facility] showed Sinan 4+5 involving 20 to 50% of 3 cores from the targeted lesion. There was an intraductal carcinoma component present. The remaining tissue was negative for malignancy. 02/08/2019 - Cancer Staged Staging form: Prostate, AJCC 8th Edition - Clinical stage from 02/08/2019: Stage IIIC (cT1c, cN0, cM0, PSA: 7.3, Grade Group: 5, 02/08/19, [place]: 4, +: 5) 02/22/2019 - Cancer Staged February 22, 2019: Nuclear medicine bone scan at [facility] showed no evidence of bony metastatic disease ? 05/18/2019 Surgery ?? 05/18/2019 Surgery May 18, 2019: Radical prostatectomy with pathology reviewed at [facility] showed Sinan 4+5 involving 10% of the prostate. There [...] concern for a metastatic deposit ?? 07/12/2021 Darlinrayna Hesterk day MRI spine. ??No evidence of osseous metastasis in the lumbar spine with mild lumbar spondylosis. ?? 09/11/2021 - 10/24/2021 Radiation Therapy ?? -08/10/21: Lupron -Started radiation therapy. ?? 09/12/2021 - Chemotherapy ?? Abiraterone and prednisone. ?? Subjective: Mr. Mckeon is here for follow up in the setting of prostate cancer. Taking Abiraterone/Prednisone daily. 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 [place] his hot flashes may have increased since then. Managing constipation with daily Miralax. No other new symptoms to report today/. Has appointment with urology for Lupron on 10/30/22. Recent surgery which has improved his gait. No longer needs a cane for support. Review of Systems: All 10 systems have been reviewed and are negative except for the mentioned above. Medications: Current Outpatient Medications Medication ??? abiraterone 250 mg tablet ??? ALPRAZolam (XANAX) 0.25 mg tablet ??? aspirin 81 mg EC tablet ??? gabapentin (NEURONTIN) 100 mg capsule ??? leuprolide (ELIGARD, 3 MONTH,) 22.5 mg injection ??? multivitamin capsule ??? pravastatin (PRAVACHOL) 20 mg tablet ??? tadalafiL (CIALIS) 10 mg tablet No current facility-administered medications for this visit. Objective: VS: BP 120/76 Pulse 70 Wt 85.7 kg (189 lb) SpO2 98% BMI 26.76 kg/m?? Social History Socioeconomic History ??? Marital status: Single Occupational History ??? 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 Smoking status: Never ??? Smokeless tobacco: Current Types: Chew Substance and Sexual Activity ??? Alcohol use: Yes Comment: RARE Physical Exam: General appearance: Adult male in NAD. Skin: Skin color, temperature, turgor normal. No rashes or lesions. HENT: Sclera anicteric. No facial pallor. Lungs: clear to auscultation bilaterally, good inspiratory effort Heart: RRR Abdomen: Extremities: No LE edema. Lymph nodes: Neuro:Alert and oriented x 3. Normal affect. Steady gait. Performance Status:1 Data Review: Labs: Results for orders placed or performed in visit on 10/14/22 COMPLETE BLOOD COUNT AND DIFFERENTIAL Result Value Ref Range WBC 4.40 4.00 - 10.40 K/cmm RBC 4.14 (L) 4.36 - 5.78 M/cmm Hemoglobin 13.2 (L) 13.8 - 17.3 gm/dL HCT 37.7 % MCV 91 81 - 95 fl MCH 31.9 27.6 - 33.0 pg MCHC 35.0 32.8 - 36.4 gm/dL RDW-CV 13.9 <14.2 % RDW-SD 45.1 <46.0 fl PLT 152 141 - 377 K/cmm MPV 9.1 (L) 9.5 - 12.7 fl % Neutrophils 70.2 % % Lymphocytes 18.9 % % Monocytes 8.6 % % Eosinophils 1.8 % % Basophils 0.5 % % Immature Grans Absolute Neutrophils 3.09 2.20 - 8.85 K/cmm Absolute Lymphocytes 0.83 (L) 1.09 - 3.30 K/cmm Absolute Monocytes 0.38 0.10 - 0.80 K/cmm Absolute Eosinophils 0.08 0.03 - 0.61 K/cmm ABS Basophils 0.02 0.01 - 0.11 K/cmm Absolute Immature Grans Type of Differential: Auto COMPREHENSIVE METABOLIC PANEL (CMP) Result Value Ref Range Sodium 139 136 - 145 mmol/L Potassium 4.0 3.5 - 5.0 mmol/L Chloride 105 96 - 110 mmol/L CO2 Total 27 22 - 32 mmol/L Glucose 87 70 - 100 mg/dL BUN 17 10 - 26 mg/dL Creatinine 0.77 0.66 - 1.25 mg/dL eGFR 93 >60 mL/min/1.73m2 Total Protein 6.3 6.3 - 8.2 g/dL Albumin 3.8 3.4 - 4.9 g/dL Alkaline Phosphatase 74 38 - 126 U/L AST 27 15 - 46 U/L ALT 20 <50 U/L Bilirubin, Total 1.1 <1.4 mg/dL Calcium 8.9 8.5 - 10.5 mg/dL Albumin/Globulin Ratio 1.5 1.0 - 2.5 Anion Gap 7 5 - 14 PSA SCREEN Result Value Ref Range PSA <0.064 <=6.500 ng/mL Assessment/Plan: Mr. Mckeon is a 76 yo male diagnosed with recurrent prostate cancer s/p radial prostatectomy evidenced by rising PSA and PET showing possible lymph node recurrence. Completed radiation. On treatment with Abiraterone, Prednisone, ADT. PSA unchanged: 0.064 He remains stable. Nodose modifications. Lupron q 3 months. Due next on 10/30/22. Administered by urology Anxiety: Stable Hot flashes: Has tried acupuncture in past with no relief. Has Gabapentin which he prefers not to take. 1) RTC in 3 months. 30 minutes in face to face contact with 25 minutes counseling side effect, treatment management andcoordination of care. Pia Chu ANP/HOSPITALITY AIDE [facility] Adult Hematology & Oncology * Amrit Sommer RN - 10/14/2022 1100 EDT Suspicion of Abuse: no - If yes, please document evidence: - Assessed on: 10/14/22 10:55 - Assessed by: AMRIT SOMMER RN Procedures: - Venipuncture Performed by: AMRIT SOMMER RN Site Collected: Right Antecubital Space Volume Withdrawn: LAV EDTA 3.0 mL and [place] SST 8.5 mL Patient Response:Patient tolerated venipuncture well Number of attempts: Collected on: 10/14/22 10:55 Ordering Provider: Tomas Adames MD documented in this encounter Plan of Treatment Not on file documented as of this encounter Procedures Procedure Name Priority Date/Time Associated Diagnosis Comments COMPLETE BLOOD COUNT AND DIFFERENTIAL Routine 10/14/2022 10:35 EDT Prostate cancer ([facility]) PSA SCREEN Routine 10/14/2022 10:35 EDT Prostate cancer (HCC-CMS) COMPREHENSIVE METABOLIC PANEL (CMP) Routine 10/14/2022 10:35 EDT Prostate cancer (HCC-CMS) documented in this encounter Results * PSA SCREEN (10/14/2022 10:35 EDT) Pathologist [facility] PSA <0.064 <=6.500 ng/mL 10/14/2022 14:29 EDT [facility] Blood VENOUS BLOOD / Unknown Venipuncture / Unknown 10/14/2022 10:35 EDT 10/14/2022 10:35 EDT [facility] - 10/14/2022 14:29 EDT NOTE: Serum PSA concentration should not be interpreted as absolute evidence for the presence or absence of malignant disease. Assayed on [email or web address] using chemiluminescent technology.??Values obtained by using different assay methods cannot be used interchangeably. ?? Pia Chu AUGER MACHINE OFFBEARER CHEMISTRY & BLOOD GAS JULY BOSWELL Final Result [facility] [address] [place] [address] * COMPREHENSIVE METABOLIC PANEL (CMP) (10/14/2022 10:35 EDT) Pathologist [facility] Sodium 139 136 - 145 mmol/L 10/14/2022 13:09 [facility] Potassium 4.0 3.5 - 5.0 mmol/L 10/14/2022 13:09 [facility] Chloride 105 96 - 110 mmol/L 10/14/2022 13:09 [facility] CO2 Total 27 22 - 32 mmol/L 10/14/2022 13:09 [facility] Glucose 87 70 - 100 mg/dL 10/14/2022 13:09 [facility] BUN 17 10 - 26 mg/dL 10/14/2022 13:09 [facility] Creatinine 0.77 0.66 - 1.25 mg/dL 10/14/2022 13:09 [facility] eGFR 93 >60 mL/min/1.7 3m2 10/14/2022 13:09 [facility] Total Protein 6.3 6.3 - 8.2 g/dL 10/14/2022 13:09 [facility] Albumin 3.8 3.4 - 4.9 g/dL 10/14/2022 13:09 [facility] Alkaline Phosphatase 74 38 - 126 U/L 10/14/2022 13:09 [facility] AST 27 15 - 46 U/L 10/14/2022 13:09 [facility] ALT 20 <50 U/L 10/14/2022 13:09 [facility] Bilirubin, Total 1.1 <1.4 mg/dL 10/15/19 13:09 [facility] Calcium 8.9 8.5 - 10.5 mg/dL 10/14/2022 13:09 [facility] Albumin/Globulin Ratio 1.5 1.0 - 2.5 10/14/2022 13:09 [facility] Anion Gap 7 5 - 14 10/14/2022 13:09 [facility] Blood VENOUS BLOOD / Unknown Venipuncture / Unknown 10/14/2022 10:35 EDT 10/14/2022 10:35 EDT us Pia Chu AUGER MACHINE OFFBEARER CHEMISTRY & BLOOD GAS JULY BOSWELL Final Result Performing Organization Address City/State/[facility] Co de Phone Number [facility] [address] [place] [address] * (ABNORMAL) COMPLETE BLOOD COUNT AND DIFFERENTIAL (10/14/2022 10:35 EDT) WBC 4.40 4.00 - 10.40 K/cmm 10/14/2022 10:52 EDT [facility] HEMATOLOGY & ONCOLOGY [facility] RBC 4.14(L) 4.36 - 5.78 M/cmm 10/14/2022 10:52 EDT [facility] HEMATOLOG[facility] & ONCOL[facility]Y [facility] Hemoglobin 13.2(L) 13.8 - 17.3 gm/dL 10/14/2022 10:52 EDT [facility] HEMATOLOG[facility] & ONCOLOGY [facility] HCT 37.7 % 10/14/2022 10:52 EDT [facility] HEMATOLOG[facility] & ONCOLOGY [facility] MCV 91 81 - 95 fl 10/14/2022 10:52 EDT [facility] ONCOLOGY [facility] MCH 31.9 27.6 - 33.0 pg 10/14/2022 10:52 EDT [facility] ONCOLOGY [facility] MCHC 35.0 32.8 - 36.4 gm/dL 10/14/2022 10:52 EDT [facility] HEMATOLOGY ONCOL[facility]Y [facility] RDW-CV 13.9 <14.2 % 10/14/2022 10:52 EDT [facility] ONCOLOGY [facility] RDW-SD 45.1 <46.0 fl 10/14/2022 10:52 EDT [facility] ONCOLOGY [facility] PLT 152 141 - 377 K/cmm 10/14/2022 10:52 EDT [facility] ONCOLOGY [facility] MPV 9.1(L) 9.5 - 12.7 fl 10/14/2022 10:52 EDT [facility] HEMATOLOG[facility] & ONCOLOGY [facility] % Neutrophils 70.2 % 10/14/2022 10:52 EDT [facility] HEMATOLOG[facility] & ONCOLOGY [facility] % Lymphocytes 18.9 % 10/14/2022 10:52 EDT [facility] HEMATOLOGY [facility] % Monocytes 8.6 % 10/14/2022 10:52 EDT [facility] HEMATOLOGY [facility] % Eosinophils 1.8 % 10/14/2022 10:52 EDT [facility] HEMATOLOG[facility] & ONCOLOGY [facility] % Basophils 0.5 % 10/14/2022 10:52 EDT [facility] HEMATOLOG[facility] & ONCOLOGY [facility] % Immature Grans 10/15/19 10:52 T [facility] & ONCOLOGY [facility] Absolute Neutrophils 3.09 2.20 - 8.85 K/cmm 10/14/2022 10:52 T [facility] HEMATOLOGY & ONCOLOGY [facility] Absolute Lymphocytes 0.83(L) 1.09 - 3.30 K/cmm 10/14/2022 10:52 T [facility] HEMATOLOGY & ONCOLOGY [facility] Absolute Monocytes 0.38 0.10 - 0.80 K/cmm 10/14/2022 10:52 EDT [facility] HEMATOLOGY ONCOLOGY - [place] Absolute Eosinophils 0.08 0.03 - 0.61 K/cmm 10/14/2022 10:52 EDT [facility] HEMATOLOGY ONCOLOGY [facility] ABS Basophils 0.02 0.01 - 0.11 K/cmm 10/14/2022 10:52 EDT [facility] Absolute Immature Grans 10/14/2022 10:52 EDT [facility] HEMATOLOGY ONCOLOGY [facility] Type of Differential: Auto 10/14/2022 10:52 EDT [facility] ONCOLOGY [facility] Blood VENOUS BLOOD / Unknown Venipuncture / Unknown 10/14/2022 10:35 EDT 10/14/2022 10:35 EDT us Pia Chu AUGER MACHINE OFFBEARER PACKAGES & DNA PROBE ORDER DALILA Final Result [facility] HEMATOLOGY [facility] Medical Office Building [address], [address] documented in this encounter Visit Diagnoses Diagnosis Prostate cancer ([facility])- Primary Malignant neoplasm of prostate documented in this encounter Care Teams Senior Research Fellow Relationship Specialty Start Date End Date Reji Adams MD [facility] [place] [address] PCP - General 12/29/21 Manuel White MD [address] [place] [id number] Radiation Oncology 09/24/21 Marcella Waller [address] [place] [address] Giving Officer 09/24/21 Jonathan Young MD [address] [place] [address] [address]OB[address] [place] [address] Magnetic Prospector Cardiovascular Disease 03/11/22 documented as of this encounter
--- OUTSIDE RECORDS SUMMARY | 2024-07-09 10:58 | XMS_ITS | Encounter Summary ---
Author Organization [facility] Address [address] [place] [address] Care Team Providers Care Jumbo Operator Name Role Phone Manuel White MD Unavailable [phone] Marcella Waller Unavailable Reji Adams MD Primary Care Provider [phone] Jonathan Young MD Unavailable [phone] Reason for Visit * Reason Comments Follow-up Encounter Details Date Type Department Care Team (Late st Contact Info) Description 04/11/2022 9:30 EDT Office Visit [facility] Adult Hematology & Oncology [address] [place] [address] [phone] [place] [address] [facility] [address] [place] [address] (Fax) Prostate cancer (HCC-CMS) (HCC) (HCC-CMS) (Primary Dx) Social History Tobacco Use [...] Sign Reading Time Taken Comments Blood Pressure 122/70 04/11/2022 0929 EDT Pulse 67 04/11/2022 0929 EDT Temperature - - Respiratory Rate - - Oxygen Saturation 92% 04/11/2022 09 EDT Inhaled Oxygen Concentration - - Weight 90.3 kg (199 lb) 04/11/2022 0929 EDT Height - - Body Mass Index 28.17 03/12/2022 0907 EDT documented in this encounter [...] documented in this encounter Progress Notes * Lindsay Espino MD - 04/11/2022 09 EDT Images from the original note were not included. Hematology/Oncology Follow up Note Oncology History Prostate cancer ([facility]) ([facility]) 07/19/2006 Initial Diagnosis Prostate cancer 07/19/2006 Initial Diagnosis ??? July [...] [facility]ology [facility] at [facility] showed [place] 4+5 involving 20 to 50% of 3 cores from the targeted lesion. There was an intraductal carcinoma component present. The remaining tissue was negative for malignancy. 02/08/2019 - Cancer Staged Staging form: Prostate, AJCC 8th Edition - Clinical stage from 02/08/2019: Stage IIIC (cT1c, cN0, cM0, PSA: 7.3, Grade Group: 5, 02/08/19, [place]: 4, +: 5) 02/22/2019 - Cancer Staged February 22, 2019: Nuclear medicine bone scan at [facility] showed no evidence of bony metastatic disease 05/18/2019 Surgery 05/18/2019 Surgery May 18, 2019: Radical prostatectomy with pathology reviewed at [facility] showed [place] 4+5 involving 10% of [...] 0.172 ??? May 07, 2021: PSA 0.253 07/02/[address]: 1. Mildly avid bilateral subcentimeter external iliac lymph nodes and suggestion of larger avid right external iliac lymph node, difficult to visualize on this non-contrast enhanced CT portion of thestudy, as above, concerning for metastases. 2. Mildly avid focus in the region of L2 vertebral body/pedicle without CT correlate that nonetheless raising concern for a metastatic deposit 07/12/2021 Darlin Marroquin day MRI spine. No evidence of osseous metastasis in the lumbar spine with mild lumbar spondylosis. 09/11/2021 - 10/24/2021 Radiation Therapy -08/10/21: Lupron -Started radiation therapy. 09/12/2021 - Chemotherapy Abiraterone and prednisone. Interim History: Gregg returns for follow-up. States that he has not been feeling well. Having a lot of musculoskeletal issues. He was seen by orthopedics recently. MRI showed sacral and pubic insufficiency fractures. He halso had MRI thoracic and lumbar spine on Friday. Has a f/u with his neurologist next week. Continues to have pain in his mid back. It is using extra strength Tylenol as needed. Continues to have a lot of hot flashes at night. He was prescribed gabapentin in the past but hesitant to try this. Review of Systems Constitutional: Negative for chills, fever and weight loss. HENT: Negative for hearing loss. Eyes: Negative for blurred vision and pain. Respiratory: Negative for cough, hemoptysis, sputum production and shortness of breath. Cardiovascular: Negative for chest pain and palpitations. Gastrointestinal: Negative for abdominal pain, nausea and vomiting. Genitourinary: Negative. Musculoskeletal: Negative for back pain and joint pain. Skin: Negative. Neurological: Negative for tingling and headaches. Endo/Heme/Allergies: Negative. Psychiatric/Behavioral: Negative. Social History Tobacco Use ??? Smoking status: Never Smoker ??? Smokeless tobacco: Current User Types: Chew Substance Use Topics ??? Alcohol use: Yes Comment: RARE ??? Drug use: Not on file Social History Social History Narrative ??? Not on file Current Outpatient Medications Medication Sig Dispense Refill Last Dose ??? abiraterone 250 mg tablet Take 4 Tablets by mouth daily. Dx: C61 240 Tablet 2 Taking ??? ALPRAZolam (XANAX) 0.25 mg tablet Take 0.75 mg by mouth as needed for Sleep. Taking ??? aspirin 81 mg EC tablet Take 81 mg by mouth daily. Taking ??? gabapentin (NEURONTIN) 100 mg capsule Take 1 capsule by mouth at bedtime. (Patient not taking: Reported on 03/12/2022) 30 capsule 1 Not Taking ??? leuprolide (ELIGARD, 3 MONTH,) 22.5 mg injection Inject 1 mg into the skin once. Taking ??? multivitamin capsule Take 2 Capsules by mouth daily. Taking ??? pravastatin (PRAVACHOL) 20 mg tablet Take 20 mg by mouth daily. Taking ??? predniSONE (DELTASONE) 5 mg tablet Take 1 Tablet by mouth daily for 30 days. 30 Tablet 0 Taking ??? tadalafiL (CIALIS) 10 mg tablet Take 10 mg by mouth as needed for Erectile Dysfunction. As needed Taking No current facility-administered medications for this visit. Vitals: 04/11/22 0929 BP: 122/70 Pulse: 67 SpO2: 92% Weight: 90.3 kg (199 lb) Wt Readings from Last 3 Encounters: 04/11/22 90.3 kg (199 lb) 03/12/22 89.8 kg (198 lb) 02/26/22 87.3 kg (192 lb 8 oz) Performance Status: (0) Fully active, able to carry on all predisease performance without restriction Physical Exam Constitutional: He is oriented to person, place, and time. He appears well- developed. No distress. HENT: Head: Normocephalic and atraumatic. Eyes: EOM are normal. Cardiovascular: Normal rate and regular rhythm. Pulmonary/Chest: Effort normal and breath sounds normal. Musculoskeletal: Cervical back: Normal range of motion and neck supple. Neurological: He is alert and oriented to person, place, and time. Skin: Skin is warm and dry. Psychiatric: He has a normal mood and affect. Back: No palpable spinal tenderness. ASSESSMENT: 75-year-old male who is s/p radical prostatectomy in April 2019 for diagnosis of localized prostate cancer with rising PSA and PET scan showing possible lymph node recurrence. ?? 1. Recurrent prostate cancer s/p radical prostatectomy. PSMA PET scan at [facility] showed mild FDG uptake particularly in the larger right external iliac lymph node concerning for metastasis. Given the lymph node recurrence and high decipher score, he was started on abiraterone along with ADT plus radiation. He has been tolerating the abiraterone relatively well. CBC reviewed from today. Has mild anemia which is likely secondary to androgen suppression. LFTs are pending. PSA from last month < 0.01. 2. Hot flashes and excessive sweating particularly at nights. Likely secondary to androgen deprivation. Tried acupuncture with no relief. Prescribed gabapentin but is hesitant to try this. 3. Back pain. Currently using extra strength Tylenol as needed. Had spinal fusion surgery in the past. Had MRI of the thoracic, lumbar and hips recently. Following with orthopedics and neurology. PLAN: 1. Continue abiraterone and prednisone. He will continue Lupron under the supervision of his urologist. 2. Return for follow-up in 2-3 months. Other Orders Placed This Visit Procedures ??? Complete Blood Count and Differential ??? Comprehensive Metabolic Panel (CMP) Lindsay Espino MD Hematology/Oncology [facility] Cc: , Dr. Rigo Rocha * Pat Sommer RN - 04/11/2022 0930 EDT Suspicion of Abuse: no - If yes, please document evidence: - Assessed on: 04/11/22 10:19 - Assessed by: PAT SOMMER RN Procedures: - Venipuncture Performed by: PAT SOMMER RN Site Collected: Right Antecubital Space Volume Withdrawn: LAV EDTA 3.0 mL and [place] SST 8.5 mL Patient Response:Patient tolerated venipuncture well Number of attempts: Collected on: 04/11/22 10:19 Ordering Provider:Lindsay Espino MD documented in this encounter Plan of Treatment Not on file documented as of this encounter Procedures Procedure Name Priority Date/Time Associated Diagnosis Comments COMPLETE BLOOD COUNT AND DIFFERENTIAL Routine 04/11/2022 9:32 EDT Prostate cancer (HCC-CMS) (HCC) ([facility]) COMPREHENSIVE METABOLIC PANEL (CMP) Routine 04/11/2022 9:32 EDT Prostate cancer (HCC-CMS) (HCC) ([facility]) documented in this encounter Results * (ABNORMAL) COMPREHENSIVE METABOLIC PANEL (CMP) (04/11/2022 9:32 [facility]) Sodium 140 136 - 145 mmol/L 04/11/2022 17:37 [facility] Potassium 3.8 3.5 - 5.0 mmol/L 04/11/2022 17:37 [facility] Chloride 105 96 - 110 mmol/L 04/11/2022 17:37 [facility] CO2 Total 28 22 - 32 mmol/L 04/11/2022 17:37 [facility] Glucose 55(L) 70 - 100 mg/dL 04/11/2022 17:37 [facility] BUN 25 10 - 26 mg/dL 04/11/2022 17:37 [facility] Creatinine 0.76 0.66 - 1.25 mg/dL 04/11/2022 17:37 [facility] eGFR 94 >60 mL/min/1.7 3m2 04/11/2022 17:37 [facility] Total Protein 6.4 6.3 - 8.2 g/dL 04/11/2022 17:37 [facility] Albumin 3.9 3.4 - 4.9 g/dL 04/11/2022 17:37 [facility] Alkaline Phosphatase 77 38 - 126 U/L 04/11/2022 17:37 [facility] AST 26 15 - 46 U/L 04/11/2022 17:37 [facility] ALT 16 <50 U/L 04/11/2022 17:37 [facility] Bilirubin, Total 0.8 <1.4 mg/dL 04/11/20 17:37 [facility] Calcium 8.9 8.5 - 10.5 mg/dL 04/11/2022 17:37 [facility] Albumin/Globulin Ratio 1.6 1.0 - 2.5 04/11/2022 17:37 [facility] Anion Gap 7 5 - 14 04/11/2022 17:37 [facility] Blood VENOUS BLOOD / Unknown Venipuncture / Unknown 04/11/2022 9:32 EDT 04/11/2022 9:32 EDT Lindsay Espino MD CHEMISTRY & BLOOD GAS ORDERAB LES Final Result [facility] [address] [place] [address] * (ABNORMAL) COMPLETE BLOOD COUNT AND DIFFERENTIAL (04/11/2022 9:32 EDT) WBC 4.20 4.00 - 10.40 K/cmm 04/11/2022 9:38 EDT [facility] HEMATOLOGY & ONCOLOGY [facility] RBC 4.18(L) 4.36 - 5.78 M/cmm 04/11/2022 9:38 EDT [facility] HEMATOLOGY & ONCOLOGY [facility] Hemoglobin 13.1(L) 13.8 - 17.3 gm/dL 04/11/2022 9:38 EDT [facility] HEMATOLOGY & ONCOLOGY [facility] HCT 39.1 % 04/11/2022 9:38 EDT [facility] HEMATOLOGY & ONCOLOGY [facility] MCV 94 81 - 95 fl 04/11/2022 9:38 EDT [facility] HEMATOLOGY & ONCOLOGY [facility] MCH 31.3 27.6 - 33.0 pg 04/11/2022 9:38 EDT [facility] HEMATOLOGY & ONCOLOGY [facility] MCHC 33.5 32.8 - 36.4 gm/dL 04/11/2022 9:38 EDT [facility] HEMATOLOGY & ONCOLOGY [facility] RDW-CV 13.9 <14.2 % 04/11/2022 9:38 EDT [facility] HEMATOLOGY & ONCOLOGY [facility] RDW-SD 45.8 <46.0 fl 04/11/2022 9:38 EDT [facility] HEMATOLOGY & ONCOLOGY [facility] PLT 150 141 - 377 K/cmm 04/11/2022 9:38 EDT [facility] HEMATOLOGY & ONCOLOGY [facility] MPV 8.5(L) 9.5 - 12.7 fl 04/11/2022 9:38 T [facility] HEMATOLOGY & ONCOLOGY [facility] % Neutrophils 59.1 % 04/11/2022 9:38 EDT [facility] HEMATOLOGY & ONCOLOGY [facility] % Lymphocytes 25.7 % 04/11/2022 9:38 EDT [facility] HEMATOLOGY & ONCOLOGY [facility] % Monocytes 11.2 % 04/11/2022 9:38 EDT [facility] HEMATOLOGY & ONCOLOGY [facility] % Eosinophils 3.3 % 04/11/2022 9:38 EDT [facility] HEMATOLOGY ONCOLOGY [facility] % Basophils 0.7 % 04/11/2022 9:38 EDT [facility] % Immature Grans 04/11/20 9:38 EDT [facility] Absolute Neutrophils 2.48 2.20 - 8.85 K/cmm 04/11/2022 9:38 EDT [facility] Absolute Lymphocytes 1.08(L) 1.09 - 3.30 K/cmm 04/11/2022 9:38 EDT [facility] Absolute Monocytes 0.47 0.10 - 0.80 K/cmm 04/11/2022 9:38 EDT [facility] Absolute Eosinophils 0.14 0.03 - 0.61 K/cmm 04/11/2022 9:38 EDT [facility] HEMATOLOGY & ONCOLOGY [facility] ABS Basophils 0.03 0.01 - 0.11 K/cmm 04/11/2022 9:38 EDT [facility] Absolute Immature Grans 04/11/2022 9:38 EDT [facility] Type of Differential: Auto 04/11/2022 9:38 EDT [facility] Blood VENOUS BLOOD / Unknown Venipuncture / Unknown 04/11/2022 9:32 EDT 04/11/2022 9:32 EDT us Lindsay Espino MD PACKAGES & DNA PROBE ORDERABL ES Final Result [facility] HEMATOLOGY [facility] Medical Office Building [address], [address] documented in this encounter Visit Diagnoses Diagnosis Prostate cancer (HCC-CMS)- Primary Malignant neoplasm of prostate documented in this encounter Care Teams Jumbo Operator Relationship Specialty Start Date End Date Reji Adams MD [facility] [place] [address] PCP - General 12/29/21 Manuel White MD [address] [place] [address] Radiation Oncology 09/24/[address] [facility] [place] [address] Secretary Book Keeper 09/24/21 Jonathan Young MD [address] [place] [address] [address]OB-A [address] [place] [address] Online Media Director Cardiovascular Disease 03/11/22 documented as of this encounter
--- OUTSIDE RECORDS SUMMARY | 2024-07-09 10:58 | XMS_ITS | Encounter Summary ---
Author Organization [facility] Address [address] [place] [address] Care Team Providers Care Marble Machine Operator Name Role Phone Manuel White MD Unavailable [phone] Marcella Waller Unavailable Reji Adams MD Primary Care Provider [phone] Jonathan Young MD Unavailable [phone] Encounter Details Date Type Department Care Team (Late st Contact Info) Description 10/11/2022 Refill [facility] Adult Hematology & Oncology [address] [place] [address] Loreta He, AGNIESZKA Social History Tobacco Use Types Packs/Day Years [...] mouth daily. Dx: C61 240 Tablet 2 10/11/2022 documented in this encounter Miscellaneous Notes * Telephone Encounter - Loreta He RN - 10/11/2022 1037 EDT Fax refill request for Abiraterone 250mg takes 4 tablets daily to [facility] pharmacy Last office visit 07/12/22 Mr. Mckeon is a 76 yo male diagnosed with recurrent prostate cancer s/p radial prostatectomy evidenced by rising PSA and PET showing possible lymph node recurrence. Completed radiation. On treatment with Abiraterone, Prednisone, ADT. PSA is stable. ?? Lupron q 3 months. Due next on 08/02/22. Administered by urology ?? Anxiety: Stable ?? Hot flashes: Has tried acupuncture in past with no relief. Has Gabapentin which he prefers not to take. ?? 1) RTC in 1 month 2) Have requested images forwarded to [facility] for review. Pending visit 10/14/22 Last filled 03/28/22 #240 with 2 refills Please sign and send if you agree. documented in this encounter Plan of Treatment Not on file documented as of this encounter Visit Diagnoses Not on filedocumented in this encounter Discontinued Medications Medication Sig Discontinue Reason Start Date End Da te abiraterone 250 mg tablet Take 4 Tablets by mouth daily. Dx: C61 Reorder 03/28/2022 10/11/2022 documented as of this encounter Care Teams Marble Machine Operator Relationship Specialty Start Date End Date Reji Adams MD [facility] [place] [address] PCP - General 12/29/21 Manuel White MD [address] [place] [address] Radiation Oncology 09/24/[address] [place] [address] Nutrition Manager 09/24/21 Jonathan Young MD [address] [place] [address] [address] [place] [address] Assistant Press Operator Offset Cardiovascular Disease 03/11/22 documented as of this encounter
--- OUTSIDE RECORDS SUMMARY | 2024-07-09 10:58 | XMS_ITS | Encounter Summary ---
Author Organization [facility] Address [address] [place] [address] Care Team Providers Care Interior Design Project Manager Name Role Phone Manuel White MD Unavailable [phone] Marcella Waller Unavailable Reji Adams MD Primary Care Provider [phone] Jonathan Young MD Unavailable [phone] Reason for Visit * Reason Onset Date Comments Medications Refill 09/04/2022 Encounter Details Date Type Department Care Team (Late st Contact Info) Description 09/04/2022 Refill [facility] Adult Hematology & Oncology [address] [place] [address] Pia Chu, SHERI [address] [place] [address] [address] [place] [address] Medications Refill Social History Tobacco [...] Telephone Encounter - Scarlet Oates RN - 09/04/2022 3559 EST Refill request for prednisone 5 mg tablet. Last filled: 08/05/22, # 30 tablet w/ 3 refills Confirmed w/ Yong in [place] that a refill is not needed at this time. Responded to patient via [employer] * Telephone Encounter - Scarlet Oates RN - 09/04/2022 8592 ESTFrom: Ken Mckeon To: Office of Pia Chu NP Sent: 09/04/2022 15:57 EST Subject: Medication Renewal Request Refills have been requested for the following medications: predniSONE (DELTASONE) 5 mg tablet [Pia Chu] Patient Comment: only 2 pills left. Preferred pharmacy: [id number] - [facility] [place] - [address] [facility] documented in this encounter Plan of Treatment Not on file documented as of this encounter Visit Diagnoses Not on filedocumented in this encounter Care Teams Interior Design Project Manager Relationship Specialty Start Date End Date Reji Adams MD [facility] [place] [address] PCP - General 12/29/21 Manuel White MD [address] [place] [address] Radiation Oncology 09/24/21 Marcella Waller [address] [place] [address] Slate Picker 09/24/21 Jonathan Young MD [address] [place] [address] [address] [place] [address] Dispatch Specialist Cardiovascular Disease 03/11/22 documented as of this encounter
--- OUTSIDE RECORDS SUMMARY | 2024-07-09 10:58 | XMS_ITS | Encounter Summary ---
Author Organization [facility] Address [address] [place] [address] Care Team Providers Care Investment Banking Analyst Name Role Phone Manuel White MD Unavailable [phone] Marcella Waller Unavailable Reji Adams MD Primary Care Provider [phone] Jonathan Young MD Unavailable [phone] Reason for Visit * Reason Onset Date Comments Medication Management 02/13/2023 Encounter Details Date Type Department Care Team (Late st Contact Info) Description 02/13/2023 Telephone [facility] Adult Hematology & Oncology [facility] [place] [address] Pia Chu, SHERI [address] [place] [address] [address] [place] [address] Medication Management Social History Tobacco Use Types Packs/Day Years [...] Miscellaneous Notes * Telephone Encounter - Dorothy Samuels RN - 02/14/[address] Louise of [facility] Hematology Oncology on 11/20/22 He started abiraterone 1000 mg and prednisone 5 mg a day on September 12. About 2-3 weeks ago he noted pounding heart, shortness of breath, more fatigue and increase in his blood pressure... Hold abiraterone and prednisone Called [facility] and spoke with Malou advised her of Dr. Louise's note above. recommended she call their office to confirm. Dr. Louise's office number provided. * Telephone Encounter - Elli Sanders - 02/13/2023 8240 EDT Tomas from [facility] spoke with patient and was told he is taking a break from medication abiraterone. Please call [employer] and advise if patient is nolonger taking medication. Thanks. [phone] Option 2 documented in this encounter Plan of Treatment Not on file documented as of this encounter Visit Diagnoses Not on filedocumented in this encounter Care Teams Investment Banking Analyst Relationship Specialty Start Date End Date Reji Adams MD [facility] [place] [address] PCP - General 12/29/21 Manuel hWite MD [address] [place] [address] Radiation Oncology 09/24/21 Marcella Waller [address] [place] [address] School Transportation Supervisor 09/24/21 Jonathan Young MD [address] [place] [address] [address] [place] [address] Casework Supervisor Cardiovascular Disease 03/11/22 documented as of this encounter
--- OUTSIDE RECORDS SUMMARY | 2024-07-09 10:58 | XMS_ITS | Encounter Summary ---
Author Organization [facility] Address [address] [place] [address] Care Team Providers Care Plsql Developer Name Role Phone Manuel White MD Unavailable [phone] Marcella Waller Unavailable Reji Adams MD Primary Care Provider [phone] Jonathan Young MD Unavailable [phone] Reason for Visit * Reason Onset Date Comments Appointment Related 04/15/2022 Encounter Details Date Type Department Care Team (Late st Contact Info) Description 04/15/2022 Telephone [facility] [address] [place] [address] Jonathan Young MD [address] [place] [address] [address] [place] [address] Appointment Related Social History Tobacco [...] encounter Miscellaneous Notes * Telephone Encounter - Tito Potter - 04/15/2022 0955 EDT Pt had his MRI and states that he has some other medical issues that he has to take care of. Pt declined to schedule ZIO at this time and cancelled OV 05/13/22. I let pt know that he can call back toreschedule at any time both the ZIO and OV with Dr. Ugalde documented in this encounter Plan of Treatment Not on file documented as of this encounter Visit Diagnoses Not on filedocumented in this encounter Care Teams Plsql Developer Relationship Specialty Start Date End Date Reji Adams MD [facility] [place] [address] PCP - General 12/29/21 Manuel White MD [address] [place] [address] Radiation Oncology 09/24/21 Marcella Waller [address] [facility] [place] [address] Aba Therapist 09/24/21 Jonathan Young MD [address] [place] [address] MOB[address]A [address] [place] [address] Mandrel Puller Cardiovascular Disease 03/11/22 documented as of this encounter
--- OUTSIDE RECORDS SUMMARY | 2024-07-09 10:58 | XMS_ITS ---
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 Past Plans No past plan information found. Radiation Treatments * Plan Last Treated On Elapsed Days Fractions Treated Prescribed Fraction Dose Prescribed Total Dose [id number] 10/15/2021 43 25 of 25 200 cGy 5,000 cGy 2_PTV64_55. 15 10/24/2021 43 7 of 7 200 cGy 1,400 cGy Reference Point Last Treated On Elapsed Days Session Dose Total Dose PELVIC NODES 10/15/2021 43 180 cGy 4,500 cGy PROST BED TOTAL 10/24/2021 43 200 cGy 6,400 cGy PROSTATE BED 10/15/2021 43 200 cGy 5,000 cGy ProstateBed CD 10/24/2021 43 200 cGy 1,400 cGy R IliacNodeTOTAL 10/24/2021 43 145 cGy 1,015 cG y RT ILIAC NODE 10/15/2021 43 180 cGy 4,500 cGy RtIliac Node CD 10/24/2021 43 145 cGy 1,015 cGy
--- OUTSIDE RECORDS SUMMARY | 2024-07-09 10:59 | XMS_ITS | Encounter Summary ---
Author Organization [facility] Address [address] [place] [address] Care Team Providers Care Dance Professor Name Role Phone Manuel White MD Unavailable [phone] Marcella Waller Unavailable Reji Adams MD Primary Care Provider [phone] Jonathan Young MD Unavailable [phone] Reason for Visit * Reason Comments Stress Management Encounter Details Date Type Department Care Team (Latest Contact Info) Description 03/12/2022 11:00 EDT [address] [facility] Team [facility] Hematology & Oncology [address] [place] [address] Augusta Meade, [address] [place] [address] Adjustment disorder with mixed anxiety [...] Primary documented in this encounter Care Teams Dance Professor Relationship Specialty Start Date End Date Reji Adams MD [facility] [place] [address] PCP - General 12/29/21 Manuel White MD [address] [place] [phone] Radiation Oncology 09/24/21 Marcella Waller [address] [facility] [place] [address] Buggy Runner 09/24/21 Jonathan Young MD [address] [place] [address] [address] [place] [address] Global Climate Change Analyst Cardiovascular Disease 03/11/22 documented as of this encounter
--- OUTSIDE RECORDS SUMMARY | 2024-07-09 10:59 | XMS_ITS | Encounter Summary ---
Author Organization [facility] Address [address] [place] [address] Care Team Providers Care Dental Ceramist Name Role Phone Manuel White MD Unavailable [phone] Marcella Waller Unavailable Encounter Details Date Type Department Care Team (Late st Contact Info) Description 10/30/2021 Documentation Visit [facility] [place] [address] [place], [place] [id number] Manuel White MD [address] [facility] [address] [place] [address] Social History Tobacco Use Types Packs/Day Years [...] documented in this encounter Miscellaneous Notes * Treatment Summary - Manuel White MD - 10/30/2021 0803 EDT Images from the original note were not included. Radiation Oncology-Treatment Summary Diagnosis: Cancer Staging Prostate cancer ([facility]) ([facility]) Staging form: Prostate, AJCC 8th Edition - Pathologic stage from 05/18/2019: Stage IIIC (pT2, pN0, cM0, PSA: 8.1, Grade Group: 5) - Signed by Manuel White MD on 08/27/2021 - Clinical: No stage assigned - Unsigned History of Presenting Illness: Mr. Ken Mckeon is has Sinan 9 prostate cancer with prostatectomy in 2019 and rising PSA. 02/25/[address] Tobias Singh at [facility] when his PSA had increased to 4.7. Patient was experiencing urinary frequency and dribbling and urinating up to 17 times during the day but had nocturia of 1-2 times. Prostate exam was without nodularity. Postvoid residual was 100 cc. 04/07/[address] Singh revealed no evidence of malignancy with a single core in the right lateral mid showing atypical glands. The prostate was 34 cc and there were no hypoechoic lesions. 06/18/2017 CT abdomen pelvis at [facility] to evaluate abdominal pain showed no evidence of adenopathy, bowel concerns or bony lesions. He continued urology follow-up and PSA was noted to increase. 12/16/18 multiparametric MRI at [facility] showed a PI-RADS 5 lesion in the anterior peripheral zone at the base and mid gland measuring 1.5 x 0.9 x 1.2cm minimally bulging the prostate contour withoutextraprostatic extension. The prostate was estimated to be 46.4 cc. There was no bony or jose abnormality. 02/08/2019 MRI fusion directed prostate biopsy was performed with the standard sector cores all negative but 3 of 3 fusion directed biopsy cores revealed Miami 4+4 adenocarcinoma. 15 cores were obtained. 02/22/2019 bone scan at [facility] showed no evidence of metastatic disease. 03/01/2019 Dr. Rayo Davis evaluated him in radiation oncology at [facility]. Patient was felt to have clinical T1c N0 M0 staging and surgery versus radiation plus androgen suppression options were reviewed. 03/24/19 [facility] urology evaluation by Dr. Zurdo Ortiz. [facility] pathology review upgraded the fusion directed prostate biopsies to Sinan 4+5, group 5. 04/07/19 Evaluation [facility] with Dr. Rigo Rocha. 05/18/2019 he underwent a radical prostatectomy at [facility] in [place] by Dr. Claire. Pathology revealed pathologic stage T2N0 with negative margins and 0 of 8 nodes were involved. Miami 4+5 adenocarcinoma was seen. 08/2020 PSA levels, as below were 0.05 and 0.08. 11/30/20 [facility] [place] angiogram chest and abdomen to evaluate thoracic pain showed no evidence of aortic dissection. 1.4 cm soft tissue density in the interpolar cortex of the right kidney was only visualized during the arterial phase and follow-up ultrasound or renal MRI by was recommended for further evaluation. Diffuse osteopenia and multilevel degenerative changes were noted within the spine. There is no evidence of adenopathy. 12/04/2020 I evaluated him in this department. He was scheduled to be seen in December by Dr. Rayo Davis in radiation oncology at [facility]. Following prostatectomy he healed rapidly he reports that heis without stress urinary incontinence. He noted decline in his erection function since prostatectomy and Viagra and other medications have not helped. She a plan to repeat PSA and consider Axumin PET his PSA louisa was discussed. 12/08/2020 MRI cervical, thoracic and lumbar spine showed a anterior cervical fusion from C3-C5. There is no evidence of metastatic disease with instrumented posterior fusion from L4-S1. There is no retroperitoneal adenopathy or significant spinal canal stenosis. Mild bilateral foraminal narrowing at L2-3 and L3-4 was present. 12/14/20 MRI abdomen showed in the right kidney a 1.6 cm cystic lesion in the interpolar cortex without enhancement that was homogeneous T2 hyperintense and T1 hypointense which corresponded to a Bosniak II right renal cyst requiring no additional follow-up. 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 There was no adenopathy and the liver showed nonenhancing cysts. Simple cysts were seen in the left kidney without evidence of hydronephrosis. Dr. Rickey Price, Radiation Oncology, [facility] obtained Decipher testing with high risk 0.[address]. [address] Zurdo Ortiz, [facility], who saw the patient pre- prostatectomy. Dr. Harrisongreed to have the patient evaluated at the multidisciplinary clinic at [facility] with a plan for PSMA PET at [facility]. 06/07/2021 the patient was seen by Dr. Tipton at [facility] radiation oncology and Dr. Nehemias Desai ([facility] medical oncology). PSMA PET scan was arranged. 06/29/2021 PSMA PET Pelvic Organs: Limited assessment due to artifact from bilateral hip prostheses. Lymph Nodes: Avid focus in the right hemipelvis on image 288, likely ureter. Milder avidity along the right pelvic sidewall/external iliac station with soft tissue nodularity, for example on image 297, 12x18 mm with avidity that is lesser than that of adjacent small bowel. Several subcentimeter anterior right external iliac lymph nodes, one, mildly avid, image 303. Avid focus in the left hemipelvis on image 308, likely distal ureter. Mildly avid subcentimeter left anterior external iliac lymph node, image 299. Musculoskeletal: Mild focal uptake in the region of the right posterior aspect of L2/pedicle, without CT correlate. Bilateral hip and right knee arthroplasty. IMPRESSION: 1. Mildly avid bilateral subcentimeter external iliac lymph nodes and suggestion of larger avid right external iliac lymph node, difficult to visualize on this non-contrast enhanced CT portion of thestudy, as above, concerning for metastases. 2. Mildly avid focus in the region of L2 vertebral body/pedicle without CT correlate that nonetheless raising concern for a metastatic deposit. 07/12/2021 MRI spine. No evidence of osseous metastasis in the lumbar spine with mild lumbar spondylosis. Dr. Desai recommended aggressive ADT treatment including 2 years of abiraterone. 07/31/2021 Dr. Rayo Davis, [facility] radiation oncology saw him. Recent PSA was 0.253 with a calculated doubling time of [address] Davis recommended ADT and radiation with lal to include the prostate bed and draining lymphatics with targeting of the avid site seen on PSMA-PET. ADT in combination with abiraterone with salvage radiation and 2 years ADT given jose involvement was recommended. Similar recommendations were made following [facility]. 08/10/21 Eligard started in [place], [place] by Dr. Rocha 09/12/[address] Espino Date PSA 11/19/2013 2.71 07/07/2015 3.40 02/2017 6.19 09/2017 6.62 10/2018 8.11 05/18/19 prostatectomy 08/29/20 0.05 09/21/20 0.08 11/03/20 0.09 01/08/21 0.14 02/07/21 0.172 05/07/21 0.253 (Doubling Time=4.7 months, last 3) Treatment Course: He was treated with a full bladder. Image guidance with daily cone beam CT was used. The patient has bilateral hip replacements such that initially a IMRT technique was used with 10 MV photons delivering 200 cGy daily to the prostate bed and PET positive right sided nodes to 5000 cGy. Simultaneously the low risk for whole. Applied. Pelvic nodes were treated to 4500 cGy in 25 treatments. A final field reduction to the prostate bed with 10 MV IMRT technique delivered 1400 cGy (200 cGy daily) resulting in a boosted prostate bed dose of 6400 cGy in 32 treatments over 43 elapsed days. With dose painting the PET positive right pelvic nodes were treated with an additional 1015 cGy in 7 fractions to 5515 cGy. He was treated from 09/11/21 through 10/24/20. The full planned course of radiation was delivered. Tolerance: He did experience of fatigue and hot flashes associated with his androgen suppression and abiraterone. Disposition: Dr. Espino will see him next month and the patient is scheduled for a 11/11/2021 Eligard in [facility] with Dr. Rocha. Patient reports he is still looking for a PCP and having some difficulty finding a primary care practioner. Manuel White MD documented in this encounter Plan of Treatment Not on file documented as of this encounter Visit Diagnoses Not on filedocumented in this encounter Care Teams Dental Ceramist Relationship Specialty Start Date End Date Manuel White MD [address] [place] [phone] Radiation Oncology 09/24/21 Marcella Waller [address] [place] [address] Biology Tutor 09/24/21 documented as of this encounter
--- OUTSIDE RECORDS SUMMARY | 2024-07-09 10:59 | XMS_ITS | Encounter Summary ---
Author Organization [facility] Address [address] [place] [address] Care Team Providers Care Chief Radiation Therapist Name Role Phone Manuel White MD Unavailable [phone] Marcella Waller Unavailable Reji Adams MD Primary Care Provider [phone] Jonathan Young MD Unavailable [phone] Reason for Visit * Reason Onset Date Comments Other 03/11/2022 Increase in palp itations Encounter Details Date Type Department Care Team (Late st Contact Info) Description 03/11/2022 Telephone [facility] [address] [place], [place] [id number] Dana Peguero, AGNIESZKA [address] [place] [address] [place], [place] [phone] Other (Increase in palpitations) Social History Tobacco Use Types Packs/Day Years [...] encounter Miscellaneous Notes * Telephone Encounter - Dana Peguero RN - 03/11/2022 0848 EDT FYI- Patient called the office to schedule F/U. He reports that he has had an increase in palpitations recently. He states this often occurs in the afternoon and evening. It feels like very frequent palpitations.He does not feel this is relating to anxiety. He denies chest pain or pressure. He monitors his BP, but does not check his HR. 03/10-BP-125/70 Appt scheduled tomorrow @ 9:15AM. Instructed patient if develops worsening symptoms or develops chest pain/pressure should be evaluated in the ER, he agrees. documented in this encounter Plan of Treatment Not on file documented as of this encounter Visit Diagnoses Not on filedocumented in this encounter Care Teams Chief Radiation Therapist Relationship Specialty Start Date End Date Reji Adams MD [facility] [place] [address] PCP - General 12/29/21 Manuel White MD [address] [place] [phone] Radiation Oncology 09/24/[address] [facility] [place] [address] Sales Recruiting Coordinator 09/24/21 Jonathan Young MD [address] [place] [address] [address] [place] [address] Green Building Design Specialist Cardiovascular Disease 03/11/22 documented as of this encounter
--- OUTSIDE RECORDS SUMMARY | 2024-07-09 10:59 | XMS_ITS | Encounter Summary ---
Author Organization [facility] Address [address] [place] [address] Care Team Providers Care Hot Header Operator Name Role Phone Manuel White MD Unavailable [phone] Marcella Waller Unavailable Reji Adams MD Primary Care Provider [phone] Reason for Visit * Reason Comments Back Pain for 2 weeks after tr angie to start a lawnmower,and lifting. had mri in june last year Encounter Details Date Type Department Care Team (Late st Contact Info) Description 12/29/2021 12:30 EDT [facility] [place] [address] [place] [address] [phone] Deanna Lang PA-C [address] [facility] [address] [place], [place] [id number] Midline low back pain without sciatica, unspecified chronicity (Primary Dx) Social History Tobacco Use Types [...] Reading Time Taken Comments Blood Pressure 122/70 12/29/2021 1254 EDT Pulse 61 12/29/2021 1254 EDT Temperature 36.8 ??C (98.3 ??F) 12/29/2021 1254 EDT Respiratory Rate 16 12/29/2021 1254 EDT Oxygen Saturation 98% 12/29/2021 1254 EDT Inhaled Oxygen Concentration - - Weight - - Height - - Body Mass Index - - documented in this encounter Functional Status * [...] 03/29/2016 8:47 EDT documented in this encounter Patient Instructions * Patient Instructions* Deanna Lang PA-C - 12/29/2021 12:30 EDT Images from the original note were not included. Justin Escobedo, I do encourage you to return for consideration of imaging of spine if your back pain does not improve with the recommendations we discussed. I have prescribed methocarbamol which you should try just 1 tablet before bed to start to make sureyou tolerate it well. If needed and you tolerate well you can increase to up to 2 tablets every 6-8 hours. Take tylenol as needed in addition. I recommend you return to Physical therapy. You can continue acupuncture. Try thermacare patches in areas of discomfort. You can also alternate ice and heat for relief. Follow up with primary care or our office if not improving. Take good careDeanna [facility] Patient Instructions Back Pain: Care Instructions Your Care Instructions Back pain has many possible causes. It is often related to problems with muscles and ligaments of the back. It may also be related to problems with the nerves, discs, or bones of the back. Moving, lifting, standing, sitting, or sleeping in an awkward way can strain the back. Sometimes you don't notice the injury until later. Arthritis is another common cause of back pain. Although it may hurt a lot, back pain usually improves on its own within several weeks. Most peoplerecover in 12 weeks or less. Using good home treatment and being careful not to stress your back can help you feel better sooner. Follow-up care is a enrique part of your treatment and safety. Be sure to make and go to all appointments, and call your doctor if you are having problems. It's also a good idea to know your test resultsand keep a list of the medicines you take. How can you care for yourself at home? ?? Sit or lie in positions that are most comfortable and reduce your pain. Try one of these positions when you lie down: ? Lie on your back with your knees bent and supported by large pillows. ? Lie on the floor with your legs on the seat of a sofa or chair. ? Lie on your side with your knees and hips bent and a pillow between your legs. ? Lie on your stomach if it does not make pain worse. ?? Do not sit up in bed, and avoid soft couches and twisted positions. Bed rest can help relieve pain at first, but it delays healing. Avoid bed rest after the first day of back pain. ?? Change positions every 30 minutes. If you must sit for long periods of time, take breaks from sitting. Get up and walk around, or lie in a comfortable position. ?? Try using a heating pad on a low or medium setting for 15 to 20 minutes every 2 or 3 hours. Try a warm shower in place of one session with the heating pad. ?? You can also try an ice pack for 10 to 15 minutes every 2 to 3 hours. Put a thin cloth between the ice pack and your skin. ?? Take pain medicines exactly as directed. ? If the doctor gave you a prescription medicine for pain, take it as prescribed. ? If you are not taking a prescription pain medicine, ask your doctor if you can take an ilcu-uot-upftdad medicine. ?? Take short walks several times a day. You can start with 5 to 10 minutes, 3 or 4 times a day, and work up to longer walks. Walk on level surfaces and avoid hills and stairs until your back is better. ?? Return to work and other activities as soon as you can. Continued rest without activity is usually not good for your back. ?? To prevent future back pain, do exercises to stretch and strengthen your back and stomach. Learnhow to use good posture, safe lifting techniques, and proper body mechanics. When should you call for help? Call your doctor now or seek immediate medical care if: ? You have new or worsening numbness in your legs. ? You have new or worsening weakness in your legs. (This could make it hard to stand up.) ? You lose control of your bladder or bowels. Watch closely for changes in your health, and be sure to contact your doctor if: ? You have a fever, lose weight, or don't feel well. ? You do not get better as expected. Where can you learn more? Go to https://www.[employer] or log into your [employer] crowdmark[employer] account at https://[employer].Sticky Enter I594 in the search box to learn more about Back Pain: Care Instructions. Current as of: January 25, 2021?Content Version: 13.2 ?? [id number] [employer]. Care instructions adapted under license by [facility]. If you have questions about a medical condition or this instruction, always ask your healthcare professional. [employer] disclaims any warranty or liability for your use of this information. documented in this encounter Ordered Prescriptions Prescription Sig Dispense Quantity Refills Last Filled Start Date End Date methocarbamoL (ROBAXIN) 500 mg tabletIndications: Midline low back pain without sciatica, unspecified chronicity Take 1 Tablet by mouth 4 times daily. Take 1-2 tablets up to [address] or drink alcohol when taking the medication. 15 Tablet 12/29/2021 documented in this encounter Progress Notes * Pia Elliott RN - 12/29/2021 1230 EDT CC: back pain- note pt is already on 5mg prednisone daily as part of treatment for prostae ca and some meds may interact adversely with chemo drugs Covid Screening: In the last 72 hours, has the patient had: Shortness of breath, cough, sore throat, nasal congestion, runny nose, fever/chills/body aches, headache, or loss of taste or smell without a reasonable alternative diagnosis*? (If yes, assign patient to [facility] schedule)no If no, have they been advised to quarantine due to COVID exposure (<6ft for > 15 mins in 24hrperiod) or due to travel? (If no, see in NR[facility])no *may be determined by RN/OFFICE CORRESPONDENT or in discussion with available provider (CCA's can defer to Charge Nurse or Nurse they are working with to complete triage when appropriate) This excludes people that have traveled for essential reasons, or fully covid-vaccinated individuals > 14 days out from date of immunization. 4 immunizations PIA ELLIOTT RN 12/29/21 12:44 * Deanna Lnag PA-C - 12/29/2021 1230 EDT [facility] Chief Complaint(s): Chief Complaint Patient presents with ??? Back Pain for 2 weeks after trying to start a lawnmower,and lifting. had mri in june last year Assessment & Plan: Ken was seen today for back pain. Diagnoses and all orders for this visit: Midline low back pain without sciatica, unspecified chronicity - methocarbamoL (ROBAXIN) 500 mg tablet; Take 1 Tablet by mouth 4 times daily. Take 1-2 tablets up to [address] or drink alcohol when taking the medication. Ken Mckeon is a 76 y.o. male With significant history of prostate cancer and spinal fusion along with prior bulging discs who presents for flare of low back pain. Patient reported pain began after heavy lifting 2 weeks ago. Denies radiating pain, bowel or bladder incontinence, numbness or tingling in extremities. Exam reveals patient is afebrile, non toxic, with paraspinal muscle spasms and lumbar spine along with some TTP of L1-3. Limited ROM of lumbar spine. Strength intact in lower extremities. 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 Discussed option of xray but patient declines. Discussed in detail reason for consideration of imagining with patient and encouraged to follow up with PRIMARY CARE PROVIDER or here if not improving and to reconsider further imaging if persists. Patient is unable to take NSAIDS due to medication interactions. Already taking prednisone. Will trial lower dose methocarbomol to ensure tolerates well and discussed importance of caution when getting up at night, use of his cane, reviewed the common side effects of methocarbomol. Also rectylenol regimen, heat and ice therapies, avoidance of aggravating activities, restarting Phys therapy, continue acupuncture and massage. I printed material and reviewed home management and follow up in detail with patient, see patient instructions below. Patient is advised in use of [employer] crowd[employer] to access any lab results or other pertinentvisit information. All questions are answered. Patient is advised to follow up for urgent reassessment for any new/worsening signs and symptoms, otherwise, [facility] that persist past current course of treatment or expected resolution as discussed. Patient verbalizes understanding and agreement with this plan of care. HPI: Ken Mckeon is a 76 y.o. male who is here with chief complaint of back pain with significant history of prostate cancer and prior spinal fusion years ago and prior bulging discs. Patient reports his symptoms are acute on chronic. 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 Patient reports the pain is dull aching and can be sharp with certain movements such as getting up from seated or rolling over in bed. Reports he is pain-free when standing up straight. Denies radiating pain, numbness ortingling in lower extremities, bowel or bladder incontinence, fever, chills, nausea, vomiting, rash, bruising, falls, or instability. Patient has been told to avoid NSAIDs due to drug interaction concerns per oncologist. Patient has seen Phys Therapy in past for his back pain but has hurt his rib recently doing his PT so he's nervous to see them again. Chiropractor twice and acupuncture yesterday did help some. Reports he has done well with cyclobenzaprine for relief of spasms in past and tried one tablet last week which he did tolerate well but wanted to be careful about grogginess with that medication. His mos recent imagine of lumbar spine was 07/17 and he brought report with him that stated findings of unchanged grade 1 retrolisthesis of L2 on L3. There is solid osseous fusion across the L4-S1 posterior elements as on previous exams. No aggressive appearing marrow lesions. No abnormal enhancement. No soft tissue mass. The conus is normal in signal and terminates at the superior endplate of L1-L2 disc bulge with superimposed left paracentral disc protrusion narrowing the left subarticular recess. L2-L3 retrolisthesis, small bilateral foraminal disc protrusion and facet arthropathy contribute to moderate right and mild left neural foraminal narrowing. No significant canal narrowing. L3-L4 disc bulge, facet arthropathy contributing to mild moderate bilateral foraminal stenosis. Has oncologist who is seeing him. Ended radiation october 24 2021. Has not had recent imaging done of back since 06/2021. Social History Tobacco Use Smoking Status Never Smoker Smokeless Tobacco Current User ??? Types: Chew I have reviewed current problem list, current medications and allergies. ROS: Review of Systems Constitutional: Negative for chills, fever and malaise/fatigue. Gastrointestinal: Negative for abdominal pain, nausea and vomiting. Genitourinary: Negative for dysuria, flank pain, hematuria and urgency. Musculoskeletal: Positive for back pain. Negative for falls, myalgias and neck pain. Skin: Negative for rash. Neurological: Negative for dizziness, tingling, sensory change, weakness and headaches. See HPI for details Objective: Vitals and nursing notes reviewed Examination: BP 122/70 (BP Cuff Location: Left arm, BP Patient Position: Sitting, BP Cuff Sizes: Adult, regular) Pulse 61 Temp 36.8 ??C (98.3 ??F) (Oral) Resp 16 SpO2 98% Physical Exam Constitutional: General: He is not in acute distress. Appearance: He is not ill-appearing or toxic-appearing. Genitourinary: Comments: No cva tenderness Musculoskeletal: Cervical back: Normal, normal range of motion and neck supple. No tenderness. Thoracic back: Normal. Lumbar back: Spasms, tenderness (l1-l3) and bony tenderness present. No swelling. Decreased range of motion. Comments: Patient declines testing for SLR due to discomfort getting into this position. Skin: General: Skin is warm and dry. Neurological: Mental Status: He is alert. Motor: No weakness. This note may be in part documented using [employer] dictation software. Please forgive any errors, omissions or typos that may result from use of dictation. documented in this encounter Plan of Treatment Not on file documented as of this encounter Visit Diagnoses Diagnosis Midline low back pain without sciatica, unspecified chronicity- Primary documented in this encounter Care Teams Hot Header Operator Relationship Specialty Start Date End Date Reji Adams MD [facility] [address] PCP - General 12/29/21 Manuel White MD [address] [place] [phone] Radiation Oncology 09/24/21 Marcella Waller [address] [facility] [place] [address] Excelsior Picker 09/24/21 documented as of this encounter
--- OUTSIDE RECORDS SUMMARY | 2024-07-09 10:59 | XMS_ITS | Encounter Summary ---
Author Organization [facility] Address [address] [place] [address] Care Team Providers Care Street Superintendent Name Role Phone Manuel White MD Unavailable [phone] Marcella Waller Unavailable Encounter Details Date Type Department Care Team (Late st Contact Info) Description 11/19/2021 Documentation Visit [facility] Radiation Oncology - [facility] [address] [place] [address] Carolina Blackwood, RN Social History Tobacco Use Types Packs/Day Years [...] documented in this encounter Progress Notes * Carolina Blackwood, RN - 11/19/2021 0960 EDT Gregg wheeler for follow up appointment with Dr. White. Survivorship care plan reviewed and a copy was given to Gregg. He is having lots of hot flashes and night sweats, nocturia x 1 with urgency in the daytime. documented in this encounter Plan of Treatment Not on file documented as of this encounter Visit Diagnoses Not on filedocumented in this encounter Care Teams Street Superintendent Relationship Specialty Start Date End Date Manuel White MD [address] [place] [phone] Radiation Oncology 09/24/21 Marcella Waller [address] [place] [address] Pasteurizer 09/24/21 documented as of this encounter
--- OUTSIDE RECORDS SUMMARY | 2024-07-09 10:59 | XMS_ITS | Encounter Summary ---
Author Organization [facility] Address [address] [place] [address] Care Team Providers Care Service Station Equipment Mechanic Name Role Phone Manuel White MD Unavailable [phone] Marcella Waller Unavailable Reji Adams MD Primary Care Provider [phone] Reason for Visit * Reason Onset Date Comments Back Pain 01/10/2022 Encounter Details Date Type Department Care Team (Late st Contact Info) Description 01/10/2022 Telephone [facility] Adult Hematology & Oncology [address] [place] [phone] [place] [id number] [facility] [address] [place] [address] (Fax) Back Pain Social History Tobacco Use Types Packs/Day Years [...] Telephone Encounter - Pat Sommer RN - 01/10/2022 1229 EDT 01/10/22 12:29 Labs ordered. Pt. Notified that he can get those done at hospital. He will do so in near future. Pt. Was only taking 1 APAP (tab) every 8 hours and has not taken anything in a couple of days Advised him of Dr. Espino's recommendations. Pt. Verbalized understanding. * Telephone Encounter - Pat Sommer RN - 01/10/2022 1059 EDT Pt. Cannot come to appt. Today - has another appt. Today. Back pain 11/04 - increases w/ movement/ADL's Only taking Tylenol for pain. Was told no Advil. ESWAR - Any other recommendations for pain relief? Also, pt. Concerned that is blood is out of whack Could he have bloodwork done ahead of time? He will be keeping 01/22/2022 appt. * Telephone Encounter - Pat Sommer RN - 01/10/2022 1026 EDT Eswar - Ok to schedule pt. For today at 3:30pm? * Telephone Encounter - Elli Sanders - 01/10/2022 1011 EDT 2 weeks joint pain back pain fatigue. Patient has gone to PT and chiropractor and that has not helped. Patient has appointment with ET on 01/22/22. He is not feeling himself would like to get in sooner. There is an opening at 3:30 with ET today. documented in this encounter Plan of Treatment Not on file documented as of this encounter Results * PSA, ULTRASENSITIVE, DIAGNOSTIC, S UROLOGY/ONCOLOGY USE ONLY (01/15/2022 11:21 EDT) Pathologist [facility] PSA, Ultrasensitive, S <0.01 <=6.5 ng/mL 01/16/2022 16:07 EDT [facility] Tech Comment: ADDITIONAL INFORMATION INTERPRETATION: After radical prostatectomy, serum PSA concentrations should decrease and remain at undetectable levels. ??The [place] [employer] defines biochemical recurrence as an [...] absence of malignant disease. Test Performed by: [facility] - [address] [address] Instructor Extension Work: Rigo Ahmadi M.D. Ph.D.; CLIA# [id number] Blood 01/15/2022 11:2 1 EDT 01/15/2022 11:22 EDT Lindsay Espino MD CHEMISTRY & BLOOD GAS ORDERAB LES Final Result [facility] [address] [place] [address] * COMPREHENSIVE METABOLIC PANEL (CMP) (01/15/2022 11:21 EDT) Pathologist [facility] Sodium 138 136 - 145 mmol/L 01/15/2022 13:36 EDT [facility] Potassium 4.3 3.5 - 5.0 mmol/L 01/15/2022 13:36 EDT [facility] Chloride 102 96 - 110 mmol/L 01/15/2022 13:36 [facility] CO2 Total 31 22 - 32 mmol/L 01/15/2022 13:36 [facility] Glucose 96 70 - 100 mg/dL 01/15/2022 13:36 [facility] BUN 20 10 - 26 mg/dL 01/15/2022 13:36 [facility] Creatinine 0.84 0.66 - 1.25 mg/dL 01/15/2022 13:36 [facility] eGFR 91 >60 mL/min/1.7 3m2 01/15/2022 13:36 [facility] Total Protein 6.4 6.3 - 8.2 g/dL 01/15/2022 13:36 [facility] Albumin 4.0 3.4 - 4.9 g/dL 01/15/2022 13:36 [facility] Alkaline Phosphatase 74 38 - 126 U/L 01/15/2022 13:36 [facility] AST 24 15 - 46 U/L 01/15/2022 13:36 [facility] ALT 18 <50 U/L 01/15/2022 13:36 [facility] Bilirubin, Total 0.8 <1.4 mg/dL 01/16/20 13:36 [facility] Calcium 8.8 8.5 - 10.5 mg/dL 01/15/2022 13:36 [facility] Albumin/Globulin Ratio 1.7 1.0 - 2.5 01/15/2022 13:36 [facility] Anion Gap 5 5 - 14 01/15/2022 13:36 [facility] Blood VENOUS BLOOD / Unknown Venipuncture / Unknown 01/15/2022 11:21 EDT 01/15/2022 11:22 EDT us Lindsay Espino MD CHEMISTRY & BLOOD GAS ORDERAB LES Final Result [facility] [address] [place] [address] * (ABNORMAL) COMPLETE BLOOD COUNT AND DIFFERENTIAL (01/15/2022 11:21 EDT) WBC 4.34 4.00 - 10.40 K/cmm 01/15/2022 11:[address] [facility] RBC 4.09(L) 4.36 - 5.78 M/cmm 01/15/2022 11:38 EDT [facility] Hemoglobin 13.1(L) 13.8 - 17.3 gm/dL 01/15/2022 11:[address] [facility] HCT 37.8 % 01/15/2022 11:[address] [facility] MCV 92 81 - 95 fl 01/15/2022 11:[address] [facility] MCH 32.0 27.6 - 33.0 pg 01/15/2022 11:[address] [facility] MCHC 34.7 32.8 - 36.4 gm/dL 01/15/2022 11:[address] [facility] RDW-CV 13.5 <14.2 % 01/15/2022 11:[address] [facility] RDW-SD 44.4 <46.0 fl 01/15/2022 11:[address] [facility] PLT 157 141 - 377 K/cmm 01/15/2022 11:[address] [facility] MPV 9.0(L) 9.5 - 12.7 fl 01/15/2022 11:38 EDT [facility] % Neutrophils 73.0 % 01/15/2022 11:38 EDT [facility] % Lymphocytes 16.6 % 01/15/2022 11:38 T [facility] % Monocytes 8.5 % 01/15/2022 11:38 EDT [facility] % Eosinophils 1.4 % 01/15/2022 11:38 T [facility] % Basophils 0.5 % 01/15/2022 11:[address] [facility] % Immature Grans 01/16/20 11:[address] [facility] Absolute Neutrophils 3.17 2.20 - 8.85 K/cmm 01/15/2022 11:[address] [facility] Absolute Lymphocytes 0.72(L) 1.09 - 3.30 K/cmm 01/15/2022 11:[address] [facility] Absolute Monocytes 0.37 0.10 - 0.80 K/cmm 01/15/2022 11:[address] [facility] Absolute Eosinophils 0.06 0.03 - 0.61 K/cmm 01/15/2022 11:[address] [facility] ABS Basophils 0.02 0.01 - 0.11 K/cmm 01/15/2022 11:[address] [facility] Absolute Immature Grans 01/15/2022 11:[address] [facility] Type of Differential: Auto 01/15/2022 11:[address] [facility] Blood VENOUS BLOOD / Unknown Venipuncture / Unknown 01/15/2022 11:21 EDT 01/15/2022 11:22 EDT Lindsay Espino MD PACKAGES & DNA PROBE ORDERABL ES Final Result [facility] Medical Office [address] documented in this encounter Visit Diagnoses Diagnosis Prostate cancer ([facility])- Primary Malignant neoplasm of prostate documented in this encounter Care Teams Service Station Equipment Mechanic Relationship Specialty Start Date End Date Reji Adams MD [facility] [place] [address] PCP - General 12/29/21 Manuel White MD [address] [place], [place] [phone] Radiation Oncology 09/24/21 Marcella Waller [address] [facility] [place] [address] Propeller Engineer 09/24/21 documented as of this encounter
--- OUTSIDE RECORDS SUMMARY | 2024-07-09 10:59 | XMS_ITS | Encounter Summary ---
Author Organization [facility] Address [address] [place] [id number] Care Team Providers Care Emu Farmer Name Role Phone Manuel White MD Unavailable [phone] Marcella Waller Unavailable Reji Adams MD Primary Care Provider [phone] Reason for Visit * Reason Onset Date Comments Labs Only 01/14/2022 Encounter Details Date Type Department Care Team (Late st Contact Info) Description 01/14/2022 Telephone [facility] [place] Hematology & Oncology [address] [place] [id number] Dorothy Cole, RN Labs Only Social History Tobacco Use Types [...] Telephone Encounter - Dorothy Cole RN - 01/14/2022 1633 EDT Lab added * Telephone Encounter - Dorothy Cole RN - 01/14/2022 1554 EDT Spoke with patient requesting to have A1c drawn in his labs tomorrow as he is concerned about diabetes. Patient states he has read side effects of medications he is taking States he is, fatigue, upset stomach, urinating more frequently, just not feeling myself. Patient states he does have a PCP, but he he can never get in to see them and its a pain to try andget them to do anything. documented in this encounter Plan of Treatment Not on file documented as of this encounter Results * HEMOGLOBIN A1C (01/15/2022 11:21 EDT) Hemoglobin A1c 5.1 <5.7 % 01/15/2022 22:02 EDT [facility] Comment: Glycemic Status References: Normal: ??<5.7% Pre-Diabetes: ??5.7% - 6.4% Diagnostic of Diabetes: ??> or = 6.5% (if confirmed) Est Avg Glucose 100 mg/dL 22:02 EDT [facility] Comment:The eAG represents t he A1c result expressed as average glucose in mg/dL. Blood VENOUS BLOOD / Unknown Venipuncture / Unknown 01/15/2022 11:21 EDT 01/15/2022 11:22 EDT us Lindsay Espino MD CHEMISTRY & BLOOD GAS ORDERAB LES Final Result [facility] [address] [place] [address] documented in this encounter Visit Diagnoses Diagnosis Malaise and fatigue- Primary Other malaise and fatigue Frequent urination Urinary frequency documented in this encounter Care Teams Emu Farmer Relationship Specialty Start Date End Date Reji Adams MD [facility] [place] [address] PCP - General 12/29/21 Manuel White MD [address] [place] [id number] Radiation Oncology 09/24/21 Marcella Waller [address] [facility] [place] [address] Engineering Mathematician 09/24/21 documented as of this encounter
--- OUTSIDE RECORDS SUMMARY | 2024-07-09 10:59 | XMS_ITS | Encounter Summary ---
Author Organization [facility] Address [address] [place] [address] Care Team Providers Care Cavalry Scout Name Role Phone Manuel White MD Unavailable [phone] Marcella Waller Unavailable Reason for Visit * Reason Comments Prostate Cancer Encounter Details Date Type Department Care Team (Late st Contact Info) Description 11/19/2021 15:30 EDT Office Visit [facility] Cancer Treatment [address] [phone] Manuel White MD [address] [facility], [facility] [address] [place] [address] Prostate cancer (HCC-CMS) (HCC) (HCC-CMS) (Primary Dx) [...] Sign Reading Time Taken Comments Blood Pressure 138/69 11/19/2021 1538 EDT Pulse 72 11/19/2021 1538 EDT Temperature - - Respiratory Rate - - Oxygen Saturation - - Inhaled Oxygen Concentration - - Weight 89.4 kg (197 lb) 11/19/2021 1538 EDT Height - - Body Mass Index 27.87 03/29/2016 0847 EDT documented in this encounter Functional Status [...] documented in this encounter Progress Notes * Manuel White MD - 11/19/2021 1530 EDT Images from the original note were not included. Division of Radiation Oncology- FOLLOW-UP NOTE Date of Service: 11/19/2021 Diagnosis/Stage: Cancer Staging Prostate cancer ([facility]) ([facility]) Staging form: Prostate, AJCC 8th Edition - Pathologic stage from 05/18/2019: Stage IIIC (pT2, pN0, cM0, PSA: 8.1, Grade Group: 5) - Signed by Manuel White MD on 08/27/2021 - Clinical: No stage assigned - Unsigned Oncology History Prostate cancer ([facility]) ([facility]) 07/19/2006 Initial Diagnosis Prostate cancer 07/19/2006 Initial [...] 22, 2019: Nuclear medicine bone scan at [facility] showed no evidence of bony metastatic disease 05/18/2019 Surgery 05/18/2019 Surgery May 18, 2019: Radical prostatectomy with pathology reviewed at [facility] showed Sinan 4+5 involving 10% [...] therapy. 09/12/2021 - Chemotherapy Abiraterone and prednisone. Interval Since Completion of Radiation Therapy: 1 month Impression: Mr. Mckeon is approximately 1 month from completing prostate bed and pelvic jose radiation with attention to the FDG avid right pelvic nodes seen on PSMA PET. He has recovered from radiation related changes and continues on Eligard and abiraterone and prednisone. PSA 1 month ago was undetectable suggesting remission. Recommendations: 1. Follow-up in 6 months and he will follow up with Dr. Espino today. 2. I defer to Dr. Espino regarding lab work and frequency of PSA. 3. The patient is currently receiving Eligard in [place] by Dr. Rocha. History of Presenting Illness: Ken Mckeon is has Lucile 9 prostate cancer with prostatectomy in 2019 and rising PSA. ?? 02/25/[address] Tobias Singh at [facility] when his PSA had increased to 4.7. ??Patient was experiencing urinary frequency and dribbling and urinating up to 17 times during the day but had nocturia of 1-2 times. ??Prostate exam was without nodularity. ??Postvoid residual was 100 cc. ?? 04/07/[address] Singh revealed no evidence of malignancy with a single core in the right lateral mid showing atypical glands. ??The prostate was 34 cc and there were no hypoechoic lesions. ?? 06/18/2017 CT abdomen pelvis at [facility] to evaluate abdominal pain showed no evidence of adenopathy, bowel concerns or bony lesions. ?? He continued urology follow-up and PSA was noted to increase. ?? 12/16/18 multiparametric MRI at [facility] showed a PI-RADS 5 lesion in the anterior peripheral zone at the base and mid gland measuring 1.5 x 0.9 x 1.2cm minimally bulging the prostate contour without extraprostatic extension. ??The prostate was estimated to be 46.4 cc. ??There was no bony or jose abnormality. ?? 02/08/2019 MRI fusion directed prostate biopsy was performed with the standard sector cores all negative but 3 of 3 fusion directed biopsy cores revealed Sinan 4+4 adenocarcinoma. ??15 cores wereobtained. ?? 02/22/2019 bone scan at [facility] showed no evidence of metastatic disease. ?? 03/01/2019 Dr. Rayo Davis evaluated him in radiation oncology at [facility]. ??Patient was felt to have clinical T1c N0 M0 staging and surgery versus radiation plus androgen suppression options were reviewed. ?? 03/24/19 [facility] urology evaluation by Dr. Zurdo Ortiz. ??[facility] pathology review upgraded the fusion directed prostate biopsies to Sinan 4+5, group 5. ?? 04/07/19 Evaluation [facility] with Dr. Rigo Rocha. ?? 05/18/2019 he underwent a radical prostatectomy at [facility] in [place] by Dr. Rigo Rocha. ??Pathology revealed pathologic stage T2N0 with negative margins and 0 of 8 nodes were involved. ??Sinan 4+5 adenocarcinoma was seen. ?? 08/2020 PSA levels, as below were 0.05 and 0.08. ?? 11/30/20 [facility] angiogram chest and abdomen to evaluate thoracic pain showed no evidence of aortic dissection. ??1.4 cm soft tissue density in the interpolar cortex of the right kidney was only visualized during the arterial phase and follow-up ultrasound or renal MRI by was recommended for further evaluation. ??Diffuse osteopenia and multilevel degenerative changes were noted within the spine.??There is no evidence of adenopathy. ?? 12/04/2020 I evaluated him in this department. ??He was scheduled to be seen in December by Dr. Rayo Davis in radiation oncology at [facility]. Following prostatectomy he healed rapidly he reports that he is without stress urinary incontinence. ??He noted decline in his erection function since prostatectomy and Viagra and other medications have not helped. ??She a plan to repeat PSA and consider Axumin PET his PSA louisa was discussed. ?? 12/08/2020 MRI cervical, thoracic and lumbar spine showed a anterior cervical fusion from C3-C5. ??There is no evidence of metastatic disease with instrumented posterior fusion from L4-S1. ??There is no retroperitoneal adenopathy or significant spinal canal stenosis. ??Mild bilateral foraminal cesar rowing at L2-3 and L3-4 was present. ?? 12/14/20 MRI abdomen showed in the right kidney a 1.6 cm cystic lesion in the interpolar cortex without enhancement that was homogeneous T2 hyperintense and T1 hypointense which corresponded to a Bosniak II right renal cyst requiring no additional follow-up. 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 ??There was no adenopathy and the liver showed nonenhancing cysts. ??Simple cysts were seen in the left kidney without evidence of hydronephrosis. ?? Dr. Rickey Price, Radiation Oncology, [facility] obtained Decipher testing with high risk 0.90 score. ?? I contacted Dr. Zurdo Ortiz, Urology [facility], who saw the patient pre- prostatectomy. ??Dr. Ortiz agreed to have the patient evaluated at the multidisciplinary clinic at [facility] with a plan for PSMA PET at [facility]. ?? 06/07/2021 the patient was seen by Dr. Tipton at [facility] radiation oncology and ??Nehemias Desai ([facility] medical oncology). ??PSMA??PET scan was arranged. ?? 06/29/2021??PSMA PET??Pelvic Organs: Limited assessment due to artifact from bilateral hip prostheses. Lymph Nodes: Avid focus in the right hemipelvis on image 288, likely ureter. ??Milder avidity along??the right pelvic sidewall/external iliac station with soft tissue nodularity, for example on [id number], 12x18 mm with avidity that is lesser than that of adjacent small bowel. ??Several subcentimeter anterior right external iliac lymph nodes, one, mildly??avid, image 303. Avid focus in the left hemipelvis on image 308, likely distal ureter. ??Mildly avid subcentimeter left anterior external iliac lymph node, image 299. Musculoskeletal: Mild focal uptake in the region of the right posterior aspect of??L2/pedicle, image [address] correlate[address] Bilateral hip and right knee arthroplasty. IMPRESSION: 1. ??Mildly avid bilateral subcentimeter external iliac lymph nodes and suggestion of larger avid right external iliac lymph node, difficult to visualize on this non-contrast enhanced CT portion of the study, as above, concerning for metastases. 2. ??Mildly avid focus in the region of L2 vertebral body/pedicle without CT correlate that nonetheless raising concern for a metastatic deposit. ?? 07/12/2021 [facility] MRI spine. ??No evidence of osseous metastasis in the lumbar spine with mild lumbar spondylosis. ?? Dr. Desai recommended aggressive ADT treatment including 2 years of abiraterone. ?? 07/31/2021 Dr. Rayo Davis, [facility] radiation oncology saw him. ??Recent PSA was 0.253 with a calculated doubling time of 3 months. ??Dr. Davis recommended ADT and radiation with lal to include the prostate bed and draining lymphatics with targeting of the avid site seen on PSMA-PET.??ADT in combination with abiraterone with salvage radiation and 2 years ADT given jose involvement wasrecommended. Similar recommendations were made following [facility]. ?? 08/10/21 Rikkisulema started in [place], [place] by Dr. Rocha ?? 09/12/[address] Espino ?? 10/24/21 completed radiation to 64 Gy to prostate bed. PET avid nodes included in whole pelvis field. ?? Date?PSA 11/19/2013?2.71 07/07/2015?3.40 02/2017?6.19 09/2017?6.62 10/2018?8.11 05/18/19 ?prostatectomy 08/29/20?0.05 09/21/20?0.08 11/03/20?0.09 01/08/21?0.14 02/07/21?0.172 05/07/21?0.253 (Doubling Time=4.7 months, last 3) 10/25/21 <0.064 ?? Interval History: Ken is seen in the office today. He received his second Eligard 2 weeks ago in [facility]. He continues to experience some degree of fatigue, hot flashes at night that wake him, some ankle swelling and also increase in joint pain. He has AUA symptom score 5/35 with nocturia 1 time per night. Hedenies incontinence, hematuria or hematochezia. He is scheduled for a follow-up with Dr. Espino today and abiraterone prednisone 10 years. PSA as above was undetectable 3 and half weeks ago. Pain Score (from Vitals) 10/15/2021 Initial score - Final score 4 Location - Comment - Objective: Vitals: 11/19/21 1538 BP: 138/69 BP Cuff Location: Right arm Pulse: 72 Weight: 89.4 kg (197 lb) Wt Readings from Last 3 Encounters: 10/22/21 88 kg (194 lb) 10/15/21 89.7 kg (197 lb 11.2 oz) 10/15/21 88.9 kg (196 lb) ECOG performance Status: (0) Fully active, able to carry on all predisease performance without restriction Rectal exam was deferred as his PSA is undetectable Lab Results: Lab Results Component Value Date WBC 4.12 10/15/2021 HGB 13.2 (L) 10/15/2021 HCT 37.7 (L) 10/15/2021 PLT 131 (L) 10/15/2021 ALT 35 10/15/2021 AST 33 10/15/2021 NA 139 10/15/2021 K 4.1 10/15/2021 CL 104 10/15/2021 CREATININE 0.78 10/15/2021 BUN 22 10/15/2021 CO2 29 10/15/2021 PSA <0.064 10/15/2021 I spent a total of 25 minutes on the date of this encounter meeting with the patient and reviewing documentation/coordinating care as described in the above note. No procedures were performed at the time of the visit. Manuel White MD Radiation Oncology-[facility] (p) [phone] / (f) [phone] Rocha, [place], [place], Dr. Espino documented in this encounter Plan of Treatment Not on file documented as of this encounter Visit Diagnoses Diagnosis Prostate cancer (HCC-CMS)- Primary Malignant neoplasm of prostate documented in this encounter Care Teams Cavalry Scout Relationship Specialty Start Date End Date Manuel White MD [address] [place] [address] Radiation Oncology 09/24/21 Marcella Waller [address] [place] [address] Biomaterials Engineer 09/24/21 documented as of this encounter
--- OUTSIDE RECORDS SUMMARY | 2024-07-09 10:59 | XMS_ITS | Encounter Summary ---
Author Organization [facility] Address [address] [place] [address] Care Team Providers Care Vamper Name Role Phone Manuel White MD Unavailable [phone] Marcella Waller Unavailable Unknown, Provider Primary Care Provider Unava ilable Reason for Visit * Reason Comments Rib Injury Left Encounter Details Date Type Department Care Team (Late st Contact Info) Description 12/24/2021 13:[address] [facility] [address] [place] [address] [id number] Binta Bernstein, PAFrantzC [address] [facility] [address] [place], [place] [id number] Rib injury (Primary Dx) Social History Tobacco Use Types [...] Reading Time Taken Comments Blood Pressure 122/70 12/24/2021 1315 EDT Pulse 58 12/24/2021 1315 EDT Temperature 36.9 ??C (98.4 ??F) 12/24/2021 1315 EDT Respiratory Rate 20 12/24/2021 1315 EDT Oxygen Saturation 100% 12/24/2021 1315 EDT Inhaled Oxygen Concentration - - Weight [...] this encounter Patient Instructions * Patient Instructions* Binta Bernstein PA-C - 12/24/2021 13:00 EDT Images from the original note were not included. Gregg- I do not see any obvious rib fractures on your xray. Unfortunately non displaced rib fractures can be difficult to see. Regardless what we need to rule out is displacement and lung injury and I do not see either of those. If the radiologist see's anything different I will call you and you also will be able to see the report on my chart once it is read. These types of injuries can take 4-6 weeks to heal. Activity is as tolerated but be mindful that more activity especially lifting heavy things can makethings feel worse for a few days. Reasons to come back - sudden worsening of pain, shortness of breath, coughing. For discomfort - tylenol extra strength 500mg, 2 tabs up to every 6-8 hours. Heat at this point, not ice. [facility] Patient Instructions Bruised Rib: Care Instructions Overview You can get a bruised rib if you fall or get hit, such as in an accident or while playing sports. The medical term for a bruise is contusion. Small blood vessels get torn and leak blood under the skin. Most people think of a bruise as a bcvjl-emc-dctg area. But bones and muscles can also get bruised.An injury may damage the rib but not cause a bruise that you can see. Sometimes it can be hard to tell if a rib is bruised or broken. The symptoms may be the same. And abroken bone can't always be seen on an X-ray. But the treatment for a bruised rib is often the sameas treatment for a broken one. An injury to the ribs can cause pain. The pain may be worse when you breathe deeply, cough, or sneeze. In most cases, a bruised rib will heal on its own. You can take pain medicine while the rib mends. Pain relief allows you to take deep breaths. Follow-up care is a enrique part of your treatment and safety. Be sure to make and go to all appointments, and call your doctor if you are having problems. It's also a good idea to know your test resultsand keep a list of the medicines you take. How can you care for yourself at home? ?? Rest and protect the injured or sore area. Stop, change, or take a break from any activity that causes pain. ?? Put ice or a cold pack on the area for 10 to 20 minutes at a time. Put a thin cloth between the ice and your skin. ?? After 2 or 3 days, if your swelling is gone, put a heating pad set on low or a warm cloth on your chest. Some doctors suggest that you go back and forth between hot and cold. Put a thin cloth between the heating pad and your skin. ?? Ask your doctor if you can take an gmsd-cfk-jylibmp pain medicine, such as acetaminophen (Tylenol), ibuprofen (Advil, Motrin), or naproxen (Aleve). Be safe with medicines. Read and follow all instructions on the label. ?? As your pain gets better, slowly return to your normal activities. Be patient. Rib bruises can take weeks or months to heal. If the pain gets worse, it may be a sign that you need to rest a while longer. When should you call for help? Call 911 anytime you think you may need emergency care. For example, call if: ? You have severe trouble breathing. Call your doctor now or seek immediate medical care if: ? You have trouble breathing. ? You have a fever. ? You have a new or worse cough. ? You have new or worse pain. Watch closely for changes in your health, and be sure to contact your doctor if: ? You do not get better as expected. Where can you learn more? Go to [email or web address] or log into your Urgent.ly account at [email or web address] Enter R125 in the search box to learn more about Bruised Rib: Care Instructions. Current as of: January 25, 2021?Content Version: 13.2 ?? [employer]. Care instructions adapted under license by [facility]. If you have questions about a medical condition or this instruction, always ask your healthcare professional. [employer] disclaims any warranty or liability for your use of this information. documented in this encounter Progress Notes * Naima Crockett RN - 12/24/2021 1300 EDT CC/HPI: On seeing PT and had some back work done on a table. Went to roll over and elbow got stuck in left rib area and he felt/heard a pop. Since then breathing has been more painful and difficult. Especially deep breathing. Covid Screening: In the last 72 hours, has the patient had: New or unusual cough, shortness of breath, new nasal congestion, sore throat, fever, chills, body aches, or new loss of taste or smell without a reasonable alternative diagnosis*? (If yes, assign to ARC) NO In the past 10 days, has the patient had a positive Covid test OR a confirmed close Covid exposure (<6ft for > 15mins in 24hr period)? (if yes, assign to ARC, regardless of vaccination status) NO Is the patient fully Covid vaccinated? Yes Approximate date of last dose? Boostered-11/2021 *may be determined by RN or in discussion with available provider (ARCHITECTURAL EXAMINER's and CCA's can defer to Charge Nurse to complete triage when appropriate) PCP: UNKNOWN,PROVIDER * Binta Bernstein PA-C - 12/24/2021 1300 EDT [facility] Chief Complaint(s): Chief Complaint Patient presents with ??? Rib Injury Left Assessment & Plan: 76-year-old male with a left rib injury possible non displaced fracture versus disruption of the costochondral margin anteriorly left lower. X-rays interpreted by myself and radiology reveals no obvious fracture. Lungs without any abnormality as well. Patient was reassured by this. We reviewed care at this point proceeding with heat, Tylenol. Activity as tolerated but to be mindful to avoid heavy lifting. Expect a 4 to 6-week time frame for recovery. Recheck if any worsening of pain. 1. Rib injury XR RIBS LEFT WITH PA CHEST New Prescriptions No medications on file HPI: Gregg here with chief complaint of left rib pain. Started when he was at physical therapy for a low back issue. He was lying on the PT table and attempting to turn over onto his stomach and somehow ended up rolling over onto his fist or arm and suddenly hearing a pop in his right front lower rib cage and then sudden discomfort. He is here because since that day his pain has actually worsened, not lessened. He has issues with rolling over in bed getting in and out of bed, sneezing taking a deep breath. He has not had any shortness of breath, denies coughing up any blood. He is concerned about his bones as he is on prednisone long-term for part of his treatment of prostate cancer. ROS: Review of Systems Respiratory: Negative for cough, hemoptysis and shortness of breath. Objective: Vitals and nursing notes reviewed Examination: BP 122/70 (BP Cuff Location: Left arm, BP Patient Position: Sitting, BP Cuff Sizes: Adult, regular) Pulse 58 Temp 36.9 ??C (98.4 ??F) (Skin) Resp 20 SpO2 100% Physical Exam Vitals and nursing note reviewed. Constitutional: Comments: Tall male, no acute distress but appears mildly uncomfortable, walking with a cane Cardiovascular: Heart sounds: Normal heart sounds. Pulmonary: Comments: Normal breath sounds throughout with no wheeze rhonchi or crackles noted Musculoskeletal: Comments: Chest wall on inspection no gross deformity, relatively normal expansion with some pain at endpoint inspiration; has discomfort left lower anterior with AP and lateral compression; on palpation tender area just under left breast/nipple line, no step-offs or crepitus noted Skin: Findings: No bruising. Neurological: Mental Status: He is oriented to person, place, and time. Data reviewed with patient (current and past results): pmhx/meds This note may be in part documented using voice dictation software. Please forgive any errors or omissions that may result from use of dictation. documented in this encounter Plan of Treatment Not on file documented as of this encounter Procedures Procedure Name Priority Date/Time Associated Diagnosis Comments XR RIBS LEFT WITH PA CHEST STAT 12/24/2021 14:02 EDT Rib injury documented in this encounter Results * XR RIBS LEFT WITH PA CHEST (12/24/2021 14:02 EDT) Anatomical Region Laterality Modality Left Computed Radiogr aphy 12/24/2021 13:5 0 EDT Impressions 12/24/2021 14:46 EDT No acute findings. THIS DOCUMENT HAS BEEN ELECTRONICALLY SIGNED BY TAL ESCOBAR MD FOR ANY QUESTIONS OR CONCERNS REGARDING THIS REPORT PLEASE CALL [facility] AT [phone] Narrative 12/24/2021 14:46 EDT PROCEDURE INFORMATION: Exam: XR Left Ribs with PA Chest Exam date and time: 12/24/2021 1:50 PM Age: 76 years old Clinical indication: Unspecified injury of thorax, initial encounter; Other: Lt rib pain; Additional info: Rolled over onto left arm; Pain left anterior mid scapular line ribs 6-8 region TECHNIQUE: Imaging protocol: XR Left ribs with PA chest. Views: 3 views COMPARISON: MRI ABDOMEN WWO CONTRAST (GENERIC) 12/14/2020 7:43 AM FINDINGS: Lungs: Unremarkable. No consolidation. Pleural spaces: Unremarkable. No pleural effusion. No pneumothorax. Heart/Mediastinum: Unremarkable. No cardiomegaly. Bones/joints: Unremarkable. Procedure Note Tal Escobar MD - 12/24/2021 PROCEDURE INFORMATION: Exam: XR Left Ribs with PA Chest Exam date and time: 12/24/2021 1:50 PM Age: 76 years old Clinical indication: Unspecified injury of thorax, initial encounter; Other: Lt rib pain; Additional info: Rolled over onto left arm; Pain left anterior mid scapular line ribs 6-8 region TECHNIQUE: Imaging protocol: XR Left ribs with PA chest. Views: 3 views COMPARISON: MRI ABDOMEN WWO CONTRAST (GENERIC) 12/14/2020 7:43 AM FINDINGS: Lungs: Unremarkable. No consolidation. Pleural spaces: Unremarkable. No pleural effusion. No pneumothorax. Heart/Mediastinum: Unremarkable. No cardiomegaly. Bones/joints: Unremarkable. IMPRESSION No acute findings. THIS DOCUMENT HAS BEEN ELECTRONICALLY SIGNED BY TAL ESCOBAR MD FOR ANY QUESTIONS OR CONCERNS REGARDING THIS REPORT PLEASE CALL [facility] [phone] us Binta Bernstein PA-C IMG DIAGNOSTIC IMAGING O RDERABLES Final Result documented in this encounter Visit Diagnoses Diagnosis Rib injury- Primary Sprain of ribs documented in this encounter Historical Medications * This list may reflect changes made after this encounter. tadalafiL (CIALIS) 10 mg tablet Take 10 mg by mouth as needed for Erectile Dysfunction. As needed added in this encounter Care Teams Vamper Relationship Specialty Start Date End Date Unknown, Provider, MD [address] [place] [address] PCP - General 12/10/21 12/28/21 Manuel White MD [address] [place] [phone] Radiation Oncology 09/24/[address] [place] [address] Bicycle Rental Clerk 09/24/21 documented as of this encounter
--- OUTSIDE RECORDS SUMMARY | 2024-07-09 10:59 | XMS_ITS | Encounter Summary ---
Author Organization [facility] Address [address] [place] [address] Care Team Providers Care Chemist Internship Name Role Phone Manuel White MD Unavailable [phone] Marcella Waller Unavailable Encounter Details Date Type Department Care Team (Late st Contact Info) Description 10/23/2021 Results Only [facility] Radiation Oncology - [facility] [address] [place], [place] [phone] Unknown, Provider, Social History Tobacco Use Types Packs/Day Years [...] Procedure Name Priority Date/Time Associated Diagnosis Comments RAD ONC ARIA SESSION SUMMARY Routine 10/23/2021 10:02 EDT documented in this encounter Results * RAD ONC ARIA SESSION SUMMARY (10/23/2021 10:02 EDT) Course ID C1 ARIA RADIATION ONCOLOGY Course First Treatment Date 09/11/2021 10:37 ARIA RADIATION ONCOLOGY Course Last Treatment Date 10/23/2021 10:02 ARIA RADIATION ONCOLOGY Course Elapsed Days 42 ARIA RADIATION ONCOLOGY Reference Point ID PROST BED TOTAL ARIA RADIATION ONCOLOGY Reference Point Dosage Given to Date [id number] Gy ARIA RADIATION ONCOLOGY Reference Point Session Dosage Given 2 Gy ARIA RADIATION ONCOLOGY Reference Point ID ProstateBed CD ARIA RADIATION ONCOLOGY Reference Point Dosage Given to Date 12 Gy ARIA RADIATION ONCOLOGY Reference Point Session Dosage Given 2 Gy ARIA RADIATION ONCOLOGY Reference Point ID R IliacNodeTOTAL ARIA RADIATION ONCOLOGY Reference Point Dosage Given to Date 8.7 Gy ARIA RADIATION ONCOLOGY Reference Point Session Dosage Given 1.45 Gy ARIA RADIATION ONCOLOGY Reference Point ID RtIliac Node CD ARIA RADIATION ONCOLOGY Reference Point Dosage Given to Date 8.7 Gy ARIA RADIATION ONCOLOGY Reference Point Session Dosage Given 1.45 Gy ARIA RADIATION ONCOLOGY Plan ID [id number] ARIA RADIATION ONCOLOGY Plan Name [id number] ARIA RADIATION ONCOLOGY Plan Fractions Treated to Date 6 ARIA RADIATION ONCOLOGY Plan Total Fractions Prescribed 7 ARIA RADIATION ONCOLOGY Plan Prescribed Dose Per Fraction 2 Gy ARIA RADIATION ONCOLOGY Plan Total Prescribed Dose 1,400 cGy ARIA RADIATION ONCOLOGY Plan Primary Reference Point ProstateBed CD ARIA RADIATION ONCOLOGY 10/23/2021 10:0 2 EDT us Provider Unknown MD RADIATION ONCOLOGY ORDERABLE S Final Result ARIA RADIATION ONCOLOGY documented in this encounter Visit Diagnoses Not on filedocumented in this encounter Care Teams Chemist Internship Relationship Specialty Start Date End Date Manuel White MD [address] [place] [phone] Radiation Oncology 09/24/21 Marcella Waller [address] [place] [address] Window Shade Ring Sewer 09/24/21 documented as of this encounter
--- OUTSIDE RECORDS SUMMARY | 2024-07-09 10:59 | XMS_ITS | Encounter Summary ---
Author Organization [facility] Address [address] [place] [address] Care Team Providers Care Baker Apprentice Name Role Phone Manuel White MD Unavailable [phone] Marcella Waller Unavailable Encounter Details Date Type Department Care Team (Late st Contact Info) Description 10/24/2021 9:45 EDT - 10/24/2021 23:59 EDT Hospital Encounter [facility] [address] [place] [address] Manuel White MD [address] [facility] [address] [place] [address] Discharge Disposition: Home or Self Care Social [...] mg by mouth as needed for Sleep. leuprolide (ELIGARD, 3 MONTH,) 22.5 mg injection Inject 1 mg into the skin once. 08/06/2021 pravastatin (PRAVACHOL) 20 mg tablet Take 20 mg by mouth daily. abiraterone 250 mg tablet Take 4 Tablets by mouth daily. 30 Tablet 2 10/18/2021 12/20/2021 cholecalciferol, vitamin D3, (VITAMIN D3 ORAL) Take 2,000 Int'l Units by mouth daily. 11/19/2021 predniSONE (DELTASONE) 5 mg tablet Take 1 Tablet by mouth daily for 90 days. 30 Tablet 10/02/2021 11/05/2021 senna (SENOKOT) 8.6 mg tabletIndications :constipation Take 1 Tablet by mouth daily. 11/19/2021 documented as of this encounter Discharge Disposition Disposition Code Departure Means Destination Home or Self Care documented in this encounter Plan of Treatment Not on file documented as of this encounter Visit Diagnoses Not on filedocumented in this encounter Care Teams Baker Apprentice Relationship Specialty Start Date End Date Manuel White MD [address] [place] [phone] Radiation Oncology 09/24/21 Marcella Waller [address] [place] [address],[address] [place] [address] Journalism Internship 09/24/21 documented as of this encounter
--- OUTSIDE RECORDS SUMMARY | 2024-07-09 10:59 | XMS_ITS | Encounter Summary ---
Author Organization [facility] Address [address] [place] [address] Care Team Providers Care Hematologist Name Role Phone Manuel White MD Unavailable [phone] Marcella Waller Unavailable Reji Adams MD Primary Care Provider [phone] Reason for Visit * Reason Comments Labs Only Encounter Details Date Type Department Care Team (Late st Contact Info) Description 01/15/2022 11:15 EDT Nurse Only [facility] Hematology [facility] Oncology [address] [place] [address] [phone] Nurse, [facility] Hem Onc Prostate cancer (HCC-CMS) (HCC) (HCC-CMS) (Primary Dx) [...] Sign Reading Time Taken Comments Blood Pressure - - Pulse 68 01/15/2022 1132 EDT Temperature - - Respiratory Rate - - Oxygen Saturation 97% 01/15/2022 1132 EDT Inhaled Oxygen Concentration - - Weight [...] documented in this encounter Progress Notes * Isidra Alatorre MA - 01/15/2022 1115 EDT Patient presets today from [facility] outpatient lab. Orders for CBC, CMP, HgA1C, PSA placed. Outpatient lab noted patient was non-fasting and non-compliant with home administration of multivitamin and were unclear on whether they could draw patient today. Patient presented to out office to clarify. It is not our standard practice to have our patients fast or hold medication prior to routine labs unless specifically instructed by the physician. I called and verified with Dr. Espino. Suspicion of Abuse: no - If yes, please document evidence: - Assessed on: 01/15/22 11:30 - Assessed by: ISIDRA ALATORRE MA Procedures: - Venipuncture Performed by: IISDRA ALATORRE MA Site Collected: Right Antecubital Space Volume Withdrawn: LAV EDTA 3.0 mL and Gold SST 3.5 mL (2) Patient Response:Patient tolerated venipuncture well and Butterfly used Number of attempts: 1 Collected on: 01/15/22 11:30 Ordering Provider:Lindsay Espino MD documented in this encounter Plan of Treatment Not on file documented as of this encounter Visit Diagnoses Diagnosis Prostate cancer ([facility])- Primary Malignant neoplasm of prostate documented in this encounter Care Teams Hematologist Relationship Specialty Start Date End Date Reji Adams MD [facility] [place] [address] PCP - General 12/29/21 Manuel White MD [address] [place] [phone] Radiation Oncology 09/24/[address] [place] [address] Flooring Sales Manager 09/24/21 documented as of this encounter
--- OUTSIDE RECORDS SUMMARY | 2024-07-09 10:59 | XMS_ITS | Encounter Summary ---
Author Organization [facility] Address [address] [place] [address] Care Team Providers Care Curtain Framer Name Role Phone Manuel White MD Unavailable [phone] Marcella Waller Unavailable Reji Adams MD Primary Care Provider [phone] Reason for Visit * Reason Comments Follow-up Vision changes/dizzi ness Encounter Details Date Type Department Care Team (Late st Contact Info) Description 02/26/2022 12:00 EDT Office Visit [facility] Adult Hematology & Oncology [address] [place] [address] Pia Chu, SHERI [address] [facility] [address] [place] [address] Prostate cancer (HCC-CMS) (HCC) (HCC-CMS) (Primary Dx); Voice hoarseness; Acute bilateral back pain, unspecified back location; Malaise and fatigue; Dizziness Social History Tobacco Use Types Packs/Day Years [...] Sign Reading Time Taken Comments Blood Pressure 104/70 02/26/2022 1201 EDT Pulse 73 02/26/2022 1201 EDT Temperature - - Respiratory Rate - - Oxygen Saturation 99% 02/26/2022 1201 EDT Inhaled Oxygen Concentration - - Weight 87.3 kg (192 lb 8 oz) 02/26/2022 1201 EDT Height - - Body Mass Index 27.23 12/10/2021 1335 EDT documented in this encounter Functional Status [...] Refills Last Filled Start Date End Date gabapentin (NEURONTIN) 100 mg capsule Take 1 capsule by mouth at bedtime. 30 capsule 1 02/26/2022 3 documented in this encounter Progress Notes * Pia Chu NP - 02/26/2022 1200 EDT CC: Chief Complaint Patient presents with ??? Follow-up Vision changes/dizziness Hematology/Oncology Problem List: Prostate cancer ([facility]) ([facility]) 07/19/2006 Initial Diagnosis ?? Prostate cancer 07/19/2006 [...] Pathology reviewed at the [facility] showed Sinan 4+5 involving 20 to 50% of 3 cores from the targeted lesion. There was an intraductal carcinoma component present. The remaining tissue was negative for malignancy. 02/08/2019 - Cancer Staged Staging form: Prostate, AJCC 8th Edition - Clinical stage from 02/08/2019: Stage IIIC (cT1c, cN0, cM0, PSA: 7.3, Grade Group: 5, 02/08/19, Dubois: 4, +: 5) 02/22/2019 - Cancer Staged February 22, 2019: Nuclear medicine bone scan at [facility] showed no evidence of bony metastatic disease ? 05/18/2019 Surgery ?? 05/18/2019 Surgery May 18, 2019: Radical prostatectomy with pathology reviewed at [facility] showed Dubois 4+5 involving 10% of the prostate. There [...] ?? Subjective: Mr. Mckeon is here for reports of increased fatigue, blurry vision and dizziness in the setting of prostate cancer. He remains on Abiraterone/Prednisone. He continues to have bouts of blurry vision anddizziness. He does feel this is related to anxiety. He denies nausea, confusion, RANDALL's or unsteady gait. Reports some pressure/congestion in left ear. Review of Systems: All 10 systems have been reviewed and are negative except for the mentioned above. Medications: Current Outpatient Medications Medication ??? abiraterone 250 mg tablet ??? ALPRAZolam (XANAX) 0.25 mg tablet ??? aspirin 81 mg EC tablet ??? leuprolide (ELIGARD, 3 MONTH,) 22.5 mg injection ??? multivitamin capsule ??? pravastatin (PRAVACHOL) 20 mg tablet ??? predniSONE (DELTASONE) 5 mg tablet ??? tadalafiL (CIALIS) 10 mg tablet No current facility-administered medications for this visit. Objective: VS: BP 104/70 Pulse 73 Wt 87.3 kg (192 lb 8 oz) SpO2 99% BMI 27.23 kg/m?? Social History Socioeconomic History ??? Marital status: Single Spouse name: Not on file ??? Number of children: Not on file ??? Years of education: Not on file ??? Highest education level: Not on file Occupational History ??? 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 Smoking status: Never Smoker ??? Smokeless tobacco: Current User Types: Chew Substance and Sexual Activity ??? Alcohol use: Yes Comment: RARE ??? Drug use: Not on file ??? Sexual activity: Not on file Other Topics Concern ??? Not on file Social History Narrative ??? Not on file Social Determinants of Health Financial Resource Strain: Not on file Food Insecurity: Not on file Transportation Needs: Not on file Physical Activity: Not on file Stress: Not on file Social Connections: Not on file Physical Exam: General appearance: Adult male in NAD. Skin: Skin color, temperature, turgor normal. No rashes or lesions. HENT: Sclera anicteric. No facial pallor. Left ear clear. Lungs: clear to auscultation bilaterally, good inspiratory effort Heart: regular rate and rhythm, S1, S2 normal, no murmur, click, rub or gallop. Abdomen: Extremities: No LE edema. Lymph nodes: Neuro: CN II-XII grossly intact. Alert and oriented x3. Normal affect. Cane assist. Steady gait. Performance Status:1 Data Review: Labs: Results for orders placed or performed in visit on 02/26/22 COMPLETE BLOOD COUNT AND DIFFERENTIAL Result Value Ref Range WBC 8.89 4.00 - 10.40 K/cmm RBC 4.60 4.36 - 5.78 M/cmm Hemoglobin 14.5 13.8 - 17.3 gm/dL HCT 42.7 % MCV 93 81 - 95 fl MCH 31.5 27.6 - 33.0 pg MCHC 34.0 32.8 - 36.4 gm/dL RDW-CV 14.2 (H) <14.2 % RDW-SD 46.3 (H) <46.0 fl PLT 173 141 - 377 K/cmm MPV 9.2 (L) 9.5 - 12.7 fl Neutrophils 82.7 % Lymphocytes 9.7 % Monocytes 6.6 % Eosinophils 0.9 % Basophils 0.1 % Immature Grans Absolute Neutrophils 7.35 2.20 - 8.85 K/cmm Absolute Lymphocytes 0.86 (L) 1.09 - 3.30 K/cmm Absolute Monocytes 0.59 0.10 - 0.80 K/cmm Absolute Eosinophils 0.08 0.03 - 0.61 K/cmm Absolute Basophils 0.01 0.01 - 0.11 K/cmm Absolute Immature Grans Type of Differential: Auto COMPREHENSIVE METABOLIC PANEL (CMP) Result Value Ref Range Sodium 139 136 - 145 mmol/L Potassium 4.5 3.5 - 5.0 mmol/L Chloride 104 96 - 110 mmol/L CO2 Total 28 22 - 32 mmol/L Glucose 93 70 - 100 mg/dL BUN 24 10 - 26 mg/dL Creatinine 0.89 0.66 - 1.25 mg/dL eGFR 89 >60 mL/min/1.73m2 Total Protein 7.4 6.3 - 8.2 g/dL Albumin 4.3 3.4 - 4.9 g/dL Alkaline Phosphatase 82 38 - 126 U/L AST 31 15 - 46 U/L ALT 18 <50 U/L Bilirubin, Total 1.0 <1.4 mg/dL Calcium 9.3 8.5 - 10.5 mg/dL Albumin/Globulin Ratio 1.4 1.0 - 2.5 Anion Gap 7 5 - 14 PSA, ULTRASENSITIVE, DIAGNOSTIC, S UROLOGY/ONCOLOGY USE ONLY Result Value Ref Range PSA, Ultrasensitive, S <0.01 <=6.5 ng/mL Assessment/Plan: Mr. Mckeon is a 76 yo male diagnosed with recurrent prostate cancer s/p radial prostatectomy evidenced by rising PSA and PET showing possible lymph node recurrence. Initiated treatment with Abiraterone, Prednisone, ADT and radiation. He presents today with ongoing occurrences of dizziness and blurry vision. I agree that his symptoms are likely associated with underlying anxiety related to health status. He is in counseling and plans to continue. Neurological exam normal today in clinic. Labs Reviewed including PSA and are stable. Hot flashes: Has tried acupuncture in past with no relief. Will send script for Gabapentin 100 mg qhs. May titrate dose to 30 mg as tolerated. 1) RTC in 1 months for follow up with Dr. Espino 30 minutes in face to face contact with 25 minutes counseling side effect, treatment management andcoordination of care. Pia Chu ANP/OUTREACH ASSOCIATE [facility] Adult Hematology & Oncology * Waqas He RN - 02/26/2022 1200 EDT Wondering if can get gabapentin, had called last week and thought this was going to get sent in. Suspicion of Abuse: no - If yes, please document evidence: - Assessed on: 02/26/22 12:47 - Assessed by: WAQAS HE RN Procedures: - Venipuncture Performed by: WAQAS HE RN Site Collected: Right Antecubital Space Volume Withdrawn: LAV EDTA 3.0 mL, [place] SST 8.5 mL and Green [place] Heparin ([facility]) 4.0 mL Patient Response:Patient tolerated venipuncture well Number of attempts: Collected on: 02/26/22 12:48 Ordering Provider:Pia Chu NP documented in this encounter Plan of Treatment Not on file documented as of this encounter Procedures Procedure Name Priority Date/Time Associated Diagnosis Comments PSA, ULTRASENSITIVE, DIAGNOSTIC, S UROLOGY/ONCOLOGY USE ONLY Routine 02/26/2022 12:12 EDT Prostate cancer (HCC-CMS) (HCC) (HCC-CMS) COMPLETE BLOOD COUNT AND DIFFERENTIAL Routine 02/26/2022 12:12 EDT Prostate cancer (HCC-CMS) (HCC) (HCC-CMS) COMPREHENSIVE METABOLIC PANEL (CMP) STAT 02/26/2022 12:12 EDT Prostate cancer (HCC-CMS) (HCC) (HCC-CMS) documented in this encounter Results * PSA, ULTRASENSITIVE, DIAGNOSTIC, S UROLOGY/ONCOLOGY USE ONLY (02/26/2022 12:12 EDT) PSA, Ultrasensitive, S <0.01 <=6.5 ng/mL 02/27/2022 12:27 EDT [facility] Comment: ADDITIONAL INFORMATION INTERPRETATION: After radical prostatectomy, serum PSA concentrations should decrease and remain at undetectable levels. ??The [place] [employer] defines biochemical recurrence as an [...] absence of malignant disease. Test Performed by: [facility] [address] [place] [address] Gyn: Rigo Ahmadi M.D. Ph.D.; CLIA# [id number] Blood VENOUS BLOOD / Unknown Venipuncture / Unknown 02/26/2022 12:12 EDT 02/26/2022 12:12 EDT Pia Chu SCRUB NURSE CHEMISTRY & BLOOD GAS JULY BOSWELL Final Result [facility] [address] [place] [address] * COMPREHENSIVE METABOLIC PANEL (CMP) (02/26/2022 12:12 EDT) Sodium 139 136 - 145 mmol/L 02/26/2022 12:46 [facility] Potassium 4.5 3.5 - 5.0 mmol/L 02/26/2022 12:46 [facility] Chloride 104 96 - 110 mmol/L 02/26/2022 12:46 [facility] CO2 Total 28 22 - 32 mmol/L 02/26/2022 12:46 [facility] Glucose 93 70 - 100 mg/dL 02/26/2022 12:46 [facility] BUN 24 10 - 26 mg/dL 02/26/2022 12:46 [facility] Creatinine 0.89 0.66 - 1.25 mg/dL 02/26/2022 12:46 [facility] eGFR 89 >60 mL/min/1.7 3m2 02/26/2022 12:46 [facility] Total Protein 7.4 6.3 - 8.2 g/dL 02/26/2022 12:46 [facility] Comment:The sample was colle cted in a [place] Heparin anticoagulated tube. An average positive bias of 6% with an individual sample bias up to 10% may be observed with heparin plasma results compared to serum results. Albumin 4.3 3.4 - 4.9 g/dL 02/26/2022 12:46 [facility] Alkaline Phosphatase 82 38 - 126 U/L 02/26/2022 12:46 [facility] AST 31 15 - 46 U/L 02/26/2022 12:46 [facility] ALT 18 <50 U/L 02/26/2022 12:46 [facility] Bilirubin, Total 1.0 <1.4 mg/dL 02/27/20 12:46 [facility] Calcium 9.3 8.5 - 10.5 mg/dL 02/26/2022 12:46 [facility] Albumin/Globulin Ratio 1.4 1.0 - 2.5 02/26/2022 12:46 [facility] Anion Gap 7 5 - 14 02/26/2022 12:46 [facility] Blood VENOUS BLOOD / Unknown Venipuncture / Unknown 02/26/2022 12:12 EDT 02/26/2022 12:12 EDT us Pia Chu SCRUB NURSE CHEMISTRY & BLOOD GAS JULY BOSWELL Final Result [facility] [address] [place] [address] * (ABNORMAL) COMPLETE BLOOD COUNT AND DIFFERENTIAL (02/26/2022 12:12 EDT) WBC 8.89 4.00 - 10.40 K/cmm 02/26/2022 13:17 EDT [facility] HEMATOLOGY & ONCOLOGY [facility] RBC 4.60 4.36 - 5.78 M/cmm 02/26/2022 13:17 EDT [facility] HEMATOLOGY & ONCOLOGY [facility] Hemoglobin 14.5 13.8 - 17.3 gm/dL 02/26/2022 13:17 EDT [facility] HEMATOLOGY & ONCOLOGY [facility] HCT 42.7 % 02/26/2022 13:17 EDT [facility] HEMATOLOGY & ONCOLOGY [facility] MCV 93 81 - 95 fl 02/26/2022 13:17 EDT [facility] HEMATOLOGY & ONCOLOGY [facility] MCH 31.5 27.6 - 33.0 pg 02/26/2022 13:17 EDT [facility] HEMATOLOGY & ONCOLOGY [facility] MCHC 34.0 32.8 - 36.4 gm/dL 02/26/2022 13:17 EDT [facility] HEMATOLOGY & ONCOLOGY [facility] RDW-CV 14.2(H) <14.2 % 02/26/2022 13:17 EDT [facility] HEMATOLOGY & ONCOLOGY [facility] RDW-SD 46.3(H) <46.0 fl 02/26/2022 13:17 EDT [facility] HEMATOLOGY & ONCOLOGY [facility] PLT 173 141 - 377 K/cmm 02/26/2022 13:17 EDT [facility] HEMATOLOGY ONCOLOGY [facility] MPV 9.2(L) 9.5 - 12.7 fl 02/26/2022 13:17 EDT [facility] HEMATOLOGY & ONCOLOGY [facility] % Neutrophils 82.7 % 02/26/2022 13:17 T [facility] HEMATOLOGY & ONCOLOGY [facility] % Lymphocytes 9.7 % 02/26/2022 13:17 EDT [facility] HEMATOLOGY & ONCOLOGY [facility] % Monocytes 6.6 % 02/26/2022 13:17 T [facility] HEMATOLOGY & ONCOLOGY [facility] % Eosinophils 0.9 % 02/26/2022 13:17 T [facility] HEMATOLOGY & ONCOLOGY [facility] % Basophils 0.1 % 02/26/2022 13:17 T [facility] HEMATOLOGY & ONCOLOGY [facility] % Immature Grans 02/27/20 13:17 T [facility] HEMATOLOGY & ONCOLOGY [facility] Absolute Neutrophils 7.35 2.20 - 8.85 K/cmm 02/26/2022 13:17 T [facility] HEMATOLOGY & ONCOLOGY [facility] Absolute Lymphocytes 0.86(L) 1.09 - 3.30 K/cmm 02/26/2022 13:17 T [facility] HEMATOLOGY & ONCOLOGY [facility] Absolute Monocytes 0.59 0.10 - 0.80 K/cmm 02/26/2022 13:[address] [facility] Absolute Eosinophils 0.08 0.03 - 0.61 K/cmm 02/26/2022 13:[address] [facility] ABS Basophils 0.01 0.01 - 0.11 K/cmm 02/26/2022 13:[address] [facility] Absolute Immature Grans 02/26/2022 13:[address] [facility] Type of Differential: Auto 02/26/2022 13:[address] [facility] Blood VENOUS BLOOD / Unknown Venipuncture / Unknown 02/26/2022 12:12 EDT 02/26/2022 12:12 EDT us Pia Chu SCRUB NURSE PACKAGES & DNA PROBE ORDER DALILA Final Result [facility] Medical Office Building [address] documented in this encounter Visit Diagnoses Diagnosis Prostate cancer (HCC-CMS)- Primary Malignant neoplasm of prostate Voice hoarseness Dysphonia Acute bilateral back pain, unspecified back location Malaise and fatigue Other malaise and fatigue Dizziness Dizziness and giddiness documented in this encounter Care Teams Curtain Framer Relationship Specialty Start Date End Date Rjei Adams MD [facility] [place] [address] PCP - General 12/29/21 Manuel White MD [address] [place] [address] Radiation Oncology 09/24/21 Marcella Waller [address] [place] [address] Pediatric Cardiologist 09/24/21 documented as of this encounter
--- OUTSIDE RECORDS SUMMARY | 2024-07-09 10:59 | XMS_ITS | Encounter Summary ---
Author Organization [facility] Address [address] [place] [address] Care Team Providers Care Boiler Plant Operator Name Role Phone Manuel White MD Unavailable [phone] Marcella Waller Unavailable Encounter Details Date Type Department Care Team (Late st Contact Info) Description 10/24/2021 Results Only [facility] Radiation Oncology - [facility] [address] [place], [place] [id number] Unknown, Provider, Social History Tobacco Use Types [...] Comments RAD ONC ARIA SESSION SUMMARY Routine 10/24/2021 10:07 EDT documented in this encounter Results * RAD ONC ARIA SESSION SUMMARY (10/24/2021 10:07 EDT) Course ID C1 ARIA RADIATION ONCOLOGY Course First Treatment Date 09/11/2021 10:37 [facility]A RADIATION ONCOLOGY Course Last Treatment Date 10/24/2021 10:07 ARIA RADIATION ONCOLOGY Course Elapsed Days 43 [facility]A RADIATION ONCOLOGY Reference Point ID PROST BED TOTAL ARIA RADIATION ONCOLOGY Reference Point Dosage Given to Date 64 Gy ARIA RADIATION ONCOLOGY Reference Point Session Dosage Given 2 Gy ARIA RADIATION ONCOLOGY Reference Point ID ProstateBed CD ARIA RADIATION ONCOLOGY Reference Point Dosage Given to Date 14 Gy ARIA RADIATION ONCOLOGY Reference Point Session Dosage Given 2 Gy ARIA RADIATION ONCOLOGY Reference Point ID R IliacNodeTOTAL ARIA RADIATION ONCOLOGY Reference Point Dosage Given to Date 10.15 Gy ARIA RADIATION ONCOLOGY Reference Point Session Dosage Given 1.45 Gy ARIA RADIATION ONCOLOGY Reference Point ID RtIliac Node CD ARIA RADIATION ONCOLOGY Reference Point Dosage Given to Date 10.15 Gy ARIA RADIATION ONCOLOGY Reference Point Session Dosage Given 1.45 Gy ARIA RADIATION ONCOLOGY Plan ID [id number] [facility] RADIATION ONCOLOGY Plan Name [id number] [facility] RADIATION ONCOLOGY Plan Fractions Treated to Date 7 ARIA RADIATION ONCOLOGY Plan Total Fractions Prescribed 7 ARIA RADIATION ONCOLOGY Plan Prescribed Dose Per Fraction 2 Gy ARIA RADIATION ONCOLOGY Plan Total Prescribed Dose 1,400 cGy ARIA RADIATION ONCOLOGY Plan Primary Reference Point ProstateBed CD ARIA RADIATION ONCOLOGY 10/24/2021 10:0 7 EDT us Provider Unknown RADIATION ONCOLOGY ORDERABLE S Final Result [facility] documented in this encounter Visit Diagnoses Not on filedocumented in this encounter Care Teams Boiler Plant Operator Relationship Specialty Start Date End Date Manuel White MD [address] [place] [address] Radiation Oncology 09/24/21 Marcella Waller [address] [facility] [place] [address] Information Technology Professor 09/24/21 documented as of this encounter
--- OUTSIDE RECORDS SUMMARY | 2024-07-09 10:59 | XMS_ITS | Encounter Summary ---
Author Organization [facility] Address [address] [place] [address] Care Team Providers Care Manager Clinical Informatics Name Role Phone Manuel White MD Unavailable [phone] Marcella Waller Unavailable Reji Adams MD Primary Care Provider [phone] Reason for Visit * Reason Onset Date Comments Other 01/22/2022 complete Encounter Details Date Type Department Care Team (Late st Contact Info) Description 01/22/2022 Telephone [facility] [place] Hematology & Oncology [address] [place] [address] [id number] [place] [address] [facility] [address] [place] [address] (Fax) Other (complete) Social History Tobacco Use Types Packs/Day Years [...] Telephone Encounter - Dorothy Cole RN - 01/22/2022 1156 EDT Labs added * Telephone Encounter - Dorothy Cole RN - 01/22/2022 1141 EDT Please advise what labs you would like ordered? Thank you * Telephone Encounter - Ely Nettles - 01/22/2022 1133 EDT Patient would like to have Labs done prior to his next appt. (2 Months) please put I lab orders. documented in this encounter Plan of Treatment Not on file documented as of this encounter Visit Diagnoses Diagnosis Prostate cancer ([facility]-CMS)- Primary Malignant neoplasm of prostate documented in this encounter Care Teams Manager Clinical Informatics Relationship Specialty Start Date End Date Reji Adams MD [facility] [place] [address] PCP - General 12/29/21 Manuel White MD [address] [place] [address] Radiation Oncology 09/24/21 Marcella Waller [address] [place] [address],[address] [place] [address] Hollock Maker 09/24/21 documented as of this encounter
--- OUTSIDE RECORDS SUMMARY | 2024-07-09 10:59 | XMS_ITS | Encounter Summary ---
Author Organization [facility] Address [address] [place] [address] Care Team Providers Care Mixing And Molding Machine Operator Name Role Phone Manuel White MD Unavailable [phone] Marcella Waller Unavailable Reji Adams MD Primary Care Provider [phone] Jonathan Young MD Unavailable [phone] Encounter Details Date Type Department Care Team (Late st Contact Info) Description 01/29/2022 Telephone [facility] Adult Hematology & Oncology [facility] [place] [address] Marcella Waller [address] [place] [address] Social History Tobacco Use Types Packs/Day Years [...] encounter Miscellaneous Notes * Telephone Encounter - SridharQuianane - 01/29/2022 1422 EDT Incoming call from patient requesting assistance with massage for his T spine pain. He states that he has been through career guidance technician and this pain has not gone away since the onset of his radiation care. Chiropractor referring back to medical team. This navigator offerd 4 session massage with [facility] therapist as pt is on oral chemotherapies. And discuss with Dr. White. PT noted that in the past he has utilized both Walker and cane to address this specific pain, not pain of prostate. He notes he has had a recent MRI of spine and nothing alarming at that point. PT was advised to communicate with primary care as well documented in this encounter Plan of Treatment Not on file documented as of this encounter Visit Diagnoses Not on filedocumented in this encounter Care Teams Mixing And Molding Machine Operator Relationship Specialty Start Date End Date Reji Adams MD [facility] [place] [address] PCP - General 12/29/21 Manuel White MD [address] [place] [address] Radiation Oncology 09/24/21 Marcella Waller [address] [place] [address] Textile Colorist Dyer 09/24/21 Jonathan Young MD [address] [place] [address] [address] [place] [address] Field Supervisor Seed Production Cardiovascular Disease 03/11/22 documented as of this encounter
--- OUTSIDE RECORDS SUMMARY | 2024-07-09 10:59 | XMS_ITS | Encounter Summary ---
Author Organization [facility] Address [address] [place] [address] Care Team Providers Care Supervisor Brine Name Role Phone Manuel White MD Unavailable [phone] Marcella Waller Unavailable Unknown, Provider MD Primary Care Provider Unava ilable Reason for Visit * Reason Onset Date Comments Medications Refill 12/20/2021 Encounter Details Date Type Department Care Team (Late st Contact Info) Description 12/20/2021 Refill [facility] Adult Hematology & Oncology [address] [place] [address] [id number] Scarlet Oates, AGNIESZKA Medications Refill Social History Tobacco Use Types [...] Tablets by mouth daily. 30 Tablet 2 12/20/2021 2 documented in this encounter Miscellaneous Notes * Telephone Encounter - Scarlet Oates, AGNIESZKA - 12/20/2021 0910 EDT Refill request from Irineo at [facility] to script line abiraterone 250 mg tablet. Last filled: 10/18/21 Last seen: 11/19/21 1. ??Continue abiraterone and prednisone. He will continue Lupron under the supervision of Dr. White. Dr. Espino - Please sign if agree. documented in this encounter Plan of Treatment Not on file documented as of this encounter Visit Diagnoses Not on filedocumented in this encounter Discontinued Medications Medication Sig Discontinue Reason Start Date End Da te abiraterone 250 mg tablet Take 4 Tablets by mouth daily. Reorder 10/18/2021 12/20/2021 documented as of this encounter Care Teams Supervisor Brine Relationship Specialty Start Date End Date Unknown, Provider, MD [address] [place] [address] PCP - General 12/10/21 12/28/21 Manuel White MD [address] [place] [address] Radiation Oncology 09/24/[address] [place] [address] Technology Education Instructor 09/24/21 documented as of this encounter
--- OUTSIDE RECORDS SUMMARY | 2024-07-09 10:59 | XMS_ITS | Encounter Summary ---
Author Organization [facility] Address [address] [place] [address] Care Team Providers Care Hand Winder Name Role Phone Manuel White MD Unavailable [phone] Marcella Waller Unavailable Reji Adams MD Primary Care Provider [phone] Reason for Visit * Reason Onset Date Comments Other 02/25/2022 Encounter Details Date Type Department Care Team (Late st Contact Info) Description 02/25/2022 Telephone [facility] Adult Hematology & Oncology [address] [place] [address] Pia Chu, SHERI [address] [place] [address] [address] [place] [address] Other Social History Tobacco Use Types Packs/Day Years [...] encounter Miscellaneous Notes * Telephone Encounter - Layla Lizarraga - 02/25/2022 1124 EDT Appt scheduled. * Telephone Encounter - Pia Chu NP - 02/25/2022 0500 EDT Reports several days of dizziness and blurred vision. Denies RADNALL, nausea, confusion. Took COVID test1 week ago and was negative. Has hip pain using cane/walker for support. Advised to repeat COVID home test. Plan to see patient in clinic on Friday for labs/follow up. documented in this encounter Plan of Treatment Not on file documented as of this encounter Visit Diagnoses Not on filedocumented in this encounter Care Teams Hand Winder Relationship Specialty Start Date End Date Reji Adams MD [facility] [place] [address] PCP - General 12/29/21 Manuel White MD [address] [place] [address] Radiation Oncology 09/24/21 Marcella Waller [facility] [place] [address] [place] [address] Cad Engineer 09/24/21 documented as of this encounter
--- OUTSIDE RECORDS SUMMARY | 2024-07-09 10:59 | XMS_ITS | Encounter Summary ---
Author Organization [facility] Address [address] [place] [address] Care Team Providers Care Behavioral Consultant Name Role Phone Manuel White MD Unavailable [phone] Marcella Waller Unavailable Reji Adams MD Primary Care Provider [phone] Encounter Details Date Type Department Care Team (Late st Contact Info) Description 01/15/2022 10:55 EDT Phlebotomy Only [facility] - Outpatient Phlebotomy Drawing [address] [place] [address] Lab, [facility] Op Phlebotomy Prostate cancer (HCC-CMS) (HCC) (HCC-CMS); Malaise and fatigue; Frequent urination Social History Tobacco Use Types Packs/Day Years [...] ULTRASENSITIVE, DIAGNOSTIC, S UROLOGY/ONCOLOGY USE ONLY Routine 01/15/2022 11:21 EDT Prostate cancer (HCC-CMS) (HCC) ([facility]) COMPLETE BLOOD COUNT AND DIFFERENTIAL Routine 01/15/2022 11:21 EDT Prostate cancer (HCC-CMS) (HCC) ([facility]) HEMOGLOBIN A1C Routine 01/15/2022 11:21 EDT Malaise and fatigue Frequent urination COMPREHENSIVE METABOLIC PANEL (CMP) Routine 01/15/2022 11:21 EDT Prostate cancer (HCC-CMS) (HCC) ([facility]) documented in this encounter Results * HEMOGLOBIN A1C (01/15/2022 11:21 EDT) Hemoglobin A1c 5.1 <5.7 % 01/15/2022 22:02 EDT [facility] Comment: Glycemic Status References: Normal: ??<5.7% Pre-Diabetes: ??5.7% - 6.4% Diagnostic of Diabetes: ??> or = 6.5% (if confirmed) Est Avg Glucose 100 mg/dL 22:02 T [facility] Comment:The eAG represents t he A1c result expressed as average glucose in mg/dL. Blood VENOUS BLOOD / Unknown Venipuncture / Unknown 01/15/2022 11:21 EDT 01/15/2022 11:22 EDT us Lindsay Espino MD CHEMISTRY & BLOOD GAS ORDERAB LES Final Result [facility] [address] [place] [address] * PSA, ULTRASENSITIVE, DIAGNOSTIC, S UROLOGY/ONCOLOGY USE ONLY (01/15/2022 11:21 EDT) PSA, Ultrasensitive, S <0.01 <=6.5 ng/mL 01/16/2022 16:07 EDT [facility] Comment: ADDITIONAL INFORMATION INTERPRETATION: After radical prostatectomy, serum PSA concentrations should decrease and remain at undetectable levels. ??The [place] [employer] defines biochemical recurrence as an initial PSA concentration >=0.20 ng/mL followed by a subsequent confirmatory PSA concentration >=0.20 ng/mL. PLEASE NOTE: The above reference interval and flagging is intended for healthy males without prostatectomy. The testing method is an electrochemiluminescence assay manufactured by [employer] and performed on the Johanna system. Values obtained with different assay methods or kits may be different and cannot be used interchangeably. Test results cannot be interpreted as absolute evidence for the presence or absence of malignant disease. Test Performed by: [facility] [address] [place] [address] Agricultural Sciences Professor: Rigo Ahmadi M.D. Ph.D.; CLIA# [id number] Blood 01/15/2022 11:2 1 EDT 01/15/2022 11:22 EDT us Lindsay Espino MD CHEMISTRY & BLOOD GAS ORDERAB LES Final Result [facility] [address] [place] [address] * COMPREHENSIVE METABOLIC PANEL (CMP) (01/15/2022 11:21 EDT) Pathologist [facility] Sodium 138 136 - 145 mmol/L 01/15/2022 13:36 EDT [facility] Potassium 4.3 3.5 - 5.0 mmol/L 01/15/2022 13:36 EDT [facility] Chloride 102 96 - 110 mmol/L 01/15/2022 13:36 EDT [facility] CO2 Total 31 22 - 32 mmol/L [facility]22 [facility] Glucose 96 70 - 100 mg/dL 01/15/2022 13:36 [facility] BUN 20 10 - 26 mg/dL 01/15/2022 13:36 [facility] Creatinine 0.84 0.66 - 1.25 mg/dL 01/15/2022 13:36 [facility] eGFR 91 >60 mL/min/1.7 3m2 01/15/2022 13:36 [facility] Total Protein 6.4 6.3 - 8.2 g/dL 01/15/2022 13:36 [facility] Albumin 4.0 3.4 - 4.9 g/dL 01/15/2022 13:36 [facility] Alkaline Phosphatase 74 38 - 126 U/L 01/15/2022 13:36 [facility] AST 24 15 - 46 U/L 01/15/2022 13:36 [facility] ALT 18 <50 U/L 01/15/2022 13:36 [facility] Bilirubin, Total 0.8 <1.4 mg/dL 01/16/20 13:36 [facility] Calcium 8.8 8.5 - 10.5 mg/dL 01/15/2022 13:36 [facility] Albumin/Globulin Ratio 1.7 1.0 - 2.5 01/15/2022 13:36 [facility] Anion Gap 5 5 - 14 01/15/2022 13:36 [facility] Blood VENOUS BLOOD / Unknown Venipuncture / Unknown 01/15/2022 11:21 EDT 01/15/2022 11:22 EDT us Lindsay Espino MD CHEMISTRY & BLOOD GAS ORDERAB LES Final Result [facility] [address] [place] [address] * (ABNORMAL) COMPLETE BLOOD COUNT AND DIFFERENTIAL (01/15/2022 11:21 EDT) WBC 4.34 4.00 - 10.40 K/cmm 01/15/2022 11:38 EDT [facility] HEMATOLOGY ONCOLOGY [facility] RBC 4.09(L) 4.36 - 5.78 M/cmm 01/15/2022 11:38 EDT [facility] ONCOLOGY [facility] Hemoglobin 13.1(L) 13.8 - 17.3 gm/dL 01/15/2022 11:38 EDT [facility] HCT 37.8 % 01/15/2022 11:38 EDT [facility] MCV 92 81 - 95 fl 01/15/2022 11:38 EDT [facility] MCH 32.0 27.6 - 33.0 pg 01/15/2022 11:38 EDT [facility] MCHC 34.7 32.8 - 36.4 gm/dL 01/15/2022 11:38 T [facility] RDW-CV 13.5 <14.2 % 01/15/2022 11:38 T [facility] RDW-SD 44.4 <46.0 fl 01/15/2022 11:38 T [facility] PLT 157 141 - 377 K/cmm 01/15/2022 11:38 T [facility] MPV 9.0(L) 9.5 - 12.7 fl 01/15/2022 11:38 T [facility] HEMATOLOGY ONCOLOGY [facility] % Neutrophils 73.0 % 01/15/2022 11:38 EDT [facility] HEMATOLOGY ONCOLOGY [facility] % Lymphocytes 16.6 % 01/15/2022 11:38 EDT [facility] % Monocytes 8.5 % 01/15/2022 11:38 T [facility] % Eosinophils 1.4 % 01/15/2022 11:38 T [facility] % Basophils 0.5 % 01/15/2022 11:38 [facility] ONCOLOGY [facility] % Immature Grans 01/16/20 11:38 T [facility] Absolute Neutrophils 3.17 2.20 - 8.85 K/cmm 01/15/2022 11:38 EDT [facility] Absolute Lymphocytes 0.72(L) 1.09 - 3.30 K/cmm 01/15/2022 11:38 EDT [facility] Absolute Monocytes 0.37 0.10 - 0.80 K/cmm 01/15/2022 11:38 EDT [facility] Absolute Eosinophils 0.06 0.03 - 0.61 K/cmm 01/15/2022 11:38 EDT [facility] ABS Basophils 0.02 0.01 - 0.11 K/cmm 01/15/2022 11:38 EDT [facility] Absolute Immature Grans 01/15/2022 11:38 T [facility] Type of Differential: Auto 01/15/2022 11:38 T [facility] Blood VENOUS BLOOD / Unknown Venipuncture / Unknown 01/15/2022 11:21 EDT 01/15/2022 11:22 EDT us Lindsay Espino MD PACKAGES & DNA PROBE ORDERABL ES Final Result [facility] Medical Office [address] documented in this encounter Visit Diagnoses Diagnosis Prostate cancer (HCC-CMS) Malignant neoplasm of prostate Malaise and fatigue Other malaise and fatigue Frequent urination Urinary frequency documented in this encounter Care Teams Behavioral Consultant Relationship Specialty Start Date End Date Reji Adams MD [facility] [place] [address] PCP - General 12/29/21 Manuel White MD [address] [place] [address] Radiation Oncology 09/24/21 Marcella Waller [address] [place] [address] Manager Internship 09/24/21 documented as of this encounter
--- OUTSIDE RECORDS SUMMARY | 2024-07-09 10:59 | XMS_ITS | Encounter Summary ---
Author Organization [facility] Address [address] [place] [address] Care Team Providers Care Teacher Nursery [employer] Name Role Phone Manuel White MD Unavailable [phone] Marcella Waller Unavailable Reji Adams MD Primary Care Provider [phone] Reason for Visit * Reason Comments Follow-up Encounter Details Date Type Department Care Team (Late st Contact Info) Description 01/22/2022 11:00 EDT Office Visit [facility] Adult Hematology & Oncology [address] [place] [id number] [place] [id number] [facility] [address] [place] [address] (Fax) Prostate cancer (HCC-CMS) (HCC) (HCC-CMS) (Primary Dx); Voice hoarseness; Acute bilateral back pain, unspecified back location Social History Tobacco Use Types Packs/Day Years [...] Sign Reading Time Taken Comments Blood Pressure 118/78 01/22/2022 1050 EDT Pulse 60 01/22/2022 1050 EDT Temperature - - Respiratory Rate - - Oxygen Saturation 98% 01/22/2022 1050 EDT Inhaled Oxygen Concentration - - Weight 87.6 kg (193 lb 1.6 oz) 01/22/2022 1050 E DT Height - - Body Mass Index 27.32 12/10/2021 1335 EDT documented in this encounter [...] documented in this encounter Progress Notes * Waqas He RN - 01/22/2022 1100 EDT Patient having a lot of back pain and low energy. States had seen a Chiropractor and acupuncture for the back. Feels voice getting more hoarse and some left ear pain for a couple months now. Suspicion of Abuse: no - If yes, please document evidence: - Assessed on: 01/22/22 11:07 - Assessed by: WAQAS HE RN * Lindsay Espino MD - 01/22/2022 1100 EDT Images from the original note were not included. Hematology/Oncology Follow up Note Oncology History Prostate cancer (HCC-[facility]) ([facility]) 07/19/2006 Initial Diagnosis Prostate cancer 07/19/2006 [...] [facility] showed [place] 4+5 involving 20 to 50% of 3 [...] 22, 2019: Nuclear medicine bone scan at [facility] showed no evidence of bony metastatic disease 05/18/2019 Surgery 05/18/2019 Surgery May 18, 2019: Radical prostatectomy with pathology reviewed at [facility] showed [place] 4+5 involving 10% of [...] prednisone. Interim History: Gregg returns for follow-up. Went to in the interim. I have been having a lot of muscular issues. Having migratory pain in his back. 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 Did have spinal fusion surgery to his lower back in the past. Has beento chiropractor and underwent acupuncture with no relief. My joints are overall getting weak. Sche duled for cortisone shot to his left knee. C/o having intermittent hoarseness in his voice and decreased hearing. He had hearing test at [facility]. Denies any recent URIs. Never smoked but chews tobacco. Has been doing it since 1971. Denies any dysphagia. Continues to have hot flashes and excess sweating especially during nights. Review of Systems Constitutional: Negative for chills, [...] Tablets by mouth daily. 30 Tablet 2 Taking ??? ALPRAZolam (XANAX) 0.25 mg tablet Take 0.75 mg by mouth as needed for Sleep. Taking ??? aspirin 81 mg EC tablet Take 81 mg by mouth daily. Taking ??? leuprolide (ELIGARD, 3 MONTH,) 22.5 mg injection Inject 1 mg into the skin once. Taking ??? multivitamin capsule Take 2 Capsules by mouth daily. Taking ??? pravastatin (PRAVACHOL) 20 mg tablet Take 20 mg by mouth daily. Taking ??? predniSONE (DELTASONE) 5 mg tablet Take 1 Tablet by mouth daily. 30 Tablet 2 Taking ??? tadalafiL (CIALIS) 10 mg tablet Take 10 mg by mouth as needed for Erectile Dysfunction. As needed Taking No current facility-administered medications for this visit. Vitals: 01/22/22 1050 BP: 118/78 Pulse: 60 SpO2: 98% Weight: 87.6 kg (193 lb 1.6 oz) Wt Readings from Last 3 Encounters: 01/22/22 87.6 kg (193 lb 1.6 oz) 12/10/21 85.6 kg (188 lb 11.2 oz) 11/19/21 88.9 kg (196 lb) Performance Status: (0) Fully active, able to carry on all predisease performance without restriction Physical Exam Constitutional: He is oriented to person, place, and time. He appears well- developed. No distress. HENT: Head: Normocephalic and atraumatic. Eyes: EOM are normal. Cardiovascular: Normal rate and regular rhythm. Pulmonary/Chest: Effort normal and breath sounds normal. Abdominal: Soft. There is no abdominal tenderness. Musculoskeletal: Cervical back: Normal range of motion [...] s/p radical prostatectomy. PSMA PET scan at [facility] showed mild FDG uptake particularly in the larger right external iliac lymph node concerning for metastasis. Given the lymph node recurrence and high decipher score, he was started on abiraterone along with ADT plus radiation. He has been tolerating the abiraterone relatively well. Recent blood work showed mild anemia which is likely secondary to androgen suppression. LFTs within normal limits. 2. Hot flashes and excessive sweating particularly at nights. Likely secondary to androgen deprivation. Tried acupuncture with no relief. Could consider gabapentin at nighttime if it continues to be an issue. 3. Intermittent voice hoarseness. Referral to ENT. 4. Back pain. Currently using extra strength Tylenol as needed. He was prescribed methocarbamol at the urgent care but never took it. Had side effects when he tried this medication in the past. Saw achiropractor and tried acupuncture as well. Had spinal fusion surgery in the past. Very unlikely rel ated to prostate cancer. PLAN: 1. Continue abiraterone and prednisone. He will continue Lupron under the supervision of his urologist. 2. Return for follow-up in 2 months. Other Orders Placed This Visit Procedures ??? Amb Consult/Follow Up ENT Lindsay Espino MD Hematology/Oncology [facility] Cc: , Dr. Rigo Rocha documented in this encounter Plan of Treatment Not on file documented as of this encounter Visit Diagnoses Diagnosis Prostate cancer ([facility])- Primary Malignant neoplasm of prostate Voice hoarseness Dysphonia Acute bilateral back pain, unspecified back location documented in this encounter Discontinued Medications Medication Sig Discontinue Reason Start Date End Da te methocarbamoL (ROBAXIN) 500 mg tabletIndications:[place] e low back pain without sciatica, unspecified chronicity Take 1 Tablet by mouth 4 times daily. Take 1-2 tablets up to [address] or drink alcohol when taking the medication. 12/29/2021 01/22/2022 documented as of this encounter Historical Medications * This list may reflect changes made after this encounter. aspirin 81 mg EC tablet Take 81 mg by mouth daily. multivitamin capsule Take 2 Capsules by mouth daily. added in this encounter Care Teams Teacher Nursery School Relationship Specialty Start Date End Date Reji Adams MD [facility] [place] [address] PCP - General 12/29/21 Manuel White MD [address] [place] [phone] Radiation Oncology 09/24/21 Marcella Waller [address] [place] [address],[address] [place] [address] Greeting Card Editor 09/24/21 documented as of this encounter
--- OUTSIDE RECORDS SUMMARY | 2024-07-09 10:59 | XMS_ITS | Encounter Summary ---
Author Organization [facility] Address [address] [place] [address] Care Team Providers Care Veterinary Practitioner Name Role Phone Manuel White MD Unavailable [phone] Marcella Waller Unavailable Reji Adams MD Primary Care Provider [phone] Reason for Visit * Reason Onset Date Comments Appointment Related 02/20/2022 Encounter Details Date Type Department Care Team (Late st Contact Info) Description 02/20/2022 Telephone [facility] Adult Hematology & Oncology [address] [place] [id number] Augusta Meade, [facility] [address] [facility] [address] [place] [address] Appointment Related Social History Tobacco [...] encounter Miscellaneous Notes * Telephone Encounter - CosmoshellydarwinLayla - 02/20/2022 0821 EDT Pt called and would like to schedule an appt to see Augusta Meade. Please call the patient to schedule. documented in this encounter Plan of Treatment Not on file documented as of this encounter Visit Diagnoses Not on filedocumented in this encounter Care Teams Veterinary Practitioner Relationship Specialty Start Date End Date Reji Adams MD [facility] [address] PCP - General 12/29/21 Manuel White MD [address] [place] [phone] Radiation Oncology 09/24/21 Marcella Waller [address] [place] [address],[address] [place] [address] Jewelry Racker 09/24/21 documented as of this encounter
--- OUTSIDE RECORDS SUMMARY | 2024-07-09 10:59 | XMS_ITS | Encounter Summary ---
Author Organization [facility] Address [address] [place] [address] Care Team Providers Care Crown Ironer Operator Name Role Phone Manuel White MD Unavailable [phone] Marcella Waller Unavailable Unknown, Provider MD Primary Care Provider Unava ilable Reason for Referral * Cardiology (Routine/Next Available) - New Request Specialty Diagnoses / Procedures Referred By Contac t Referred To Contact Diagnoses PSVT (paroxysmal supraventricular tachycardia) ([facility]) Procedures EKG 12-LEAD Jolene Amador MD Phone: tel: fax: Referral ID Status Reason Start Date Expiration Date V isits Requested Visits Authorized [id number] New Request 12/03/2021 1 1 Reason for Visit * Reason Comments New Patient Visit Palpitations intermittent * Consult (See Order Priority) - Order Cancelled Specialty Diagnoses / Procedures Referred By Contac t Referred To Contact Cardiology Diagnoses Intermittent palpitations Lindsay Espino MD Phone: tel: fax: [facility] [address] [place] [address] Phone: tel: fax: Referral ID Status Reason Start Date Expiration Date Visits Requested Visits Authorized [id number] Order Cancelled Specialty Services Required 10/01/2021 1 1 Encounter Details Date Type Department Care Team (Latest Contact Info) Description 12/10/2021 13:45 EDT Office Visit [facility] [address] [place] [address] Jolene Amador MD [address] [facility] [address] [place] [address] PSVT (paroxysmal supraventricular tachycardia) (HCC-CMS) (HCC) (Primary Dx); RBBB; LAFB (left anterior fascicular block) Social History Tobacco Use Types Packs/Day Years [...] Sign Reading Time Taken Comments Blood Pressure 116/64 12/10/2021 1335 EDT Pulse 82 12/10/2021 1335 EDT Temperature - - Respiratory Rate - - Oxygen Saturation 96% 12/10/2021 1335 EDT Inhaled Oxygen Concentration - - Weight 85.6 kg (188 lb 11.2 oz) 12/10/2021 1335 EDT Height 179.1 cm (5' 10.5) 12/10/2021 1335 EDT Body Mass Index 26.69 12/10/2021 1335 EDT documented in this encounter [...] documented in this encounter Progress Notes * Jolene Amador MD - 12/10/[address] [facility] CARDIOLOGY CONSULT Date of Service: 12/10/2021 Reason for Visit: PSVT (paroxysmal supraventricular tachycardia) (HCC-CMS) ([facility]) [I47.1] Referring Consult: Lindsay Espino Primary Care Provider: No primary care provider on file. ASSESSMENT 1. PSVT (paroxysmal supraventricular tachycardia) (HCC-CMS) ([facility]) 2. RBBB 3. LAFB (left anterior fascicular block) Overall low SVT burden. 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 No angina, heart failure or structural heart disease. PLAN ? ? If increased burden consider PRN metoprolol if HR > 130 > 10 min. Follow-up PRN SUBJECTIVE Ken Cole, 1945 76 y.o. male patient with personal history of recurrent metastatic prostate cancer and HLP. Tries to walk 40 min daily and practices archery daily. Does not feel limited from a cardiopulmonary standpoint. On and off bursts of tachypalpitations for years. Coughing breaks arrhythmia. Never prolonged episodes of tachypalpitations. Zio showed bursts of SVT, longest 25 s w/ average rate of 118/'. Normal echo. Baseline EKG notable for bifascicular block. Currently treated for recurrent metastatic prostate cancer. Chronic dependent edema controlled w/ compression stockings. Patient denies CP, SOB, PND, edema, syncope, claudication, focal deficits, bleeding. Past Surgical History: Procedure Laterality Date ??? [...] Outpatient Medications Marked as Taking for the 12/10/21 encounter (Office Visit) with Jolene Amador MD Medication Sig ??? abiraterone 250 mg tablet Take 4 Tablets by mouth daily. ??? ALPRAZolam (XANAX) 0.25 mg tablet Take 0.75 mg by mouth as needed for Sleep. ??? leuprolide (ELIGARD, 3 MONTH,) 22.5 mg injection Inject 1 mg into the skin once. ??? pravastatin (PRAVACHOL) 20 mg tablet Take 20 mg by mouth daily. ??? predniSONE (DELTASONE) 5 mg tablet Take 1 Tablet by mouth daily. Allergies: Penicillins, Betamethasone, Dexamethasone, and Triamcinolone acetonide Family History: Brother w/ CT in his 40's. Social History: Nonsmoker. No alcohol. Review of Systems: Performed; pertinent positives and negatives as mentioned above. OBJECTIVE Wt Readings from Last 3 Encounters: 12/10/21 85.6 kg (188 lb 11.2 oz) 11/19/21 88.9 kg (196 lb) 11/19/21 89.4 kg (197 lb) BP Readings from Last 3 Encounters: 11/19/21 138/68 11/19/21 138/69 10/22/21 137/80 Pulse Readings from Last 3 Encounters: 11/19/21 72 11/19/21 72 10/22/21 66 Diagnostic Data Available records including laboratory and cardiac studies reviewed and discussed with patient; pertinent findings as mentioned above and as follows: Lab Results Component Value Date CREATININE 0.95 11/19/2021 CALCGFR 83 11/19/2021 BUN 25 11/19/2021 NA 138 11/19/2021 CL 106 11/19/2021 K 4.6 11/19/2021 ALT 27 11/19/2021 AST 33 11/19/2021 ALKPHOS 53 11/19/2021 No results found for: NTBNP, TROPONINI, URICACID, CRP Lab Results Component Value Date HGB 12.9 (L) 11/19/2021 No results found for: CHOL, HDL, LDL, LDLDIRECT, LDLBASE, TRIG No results found for: HGBA1C, TSH Echocardiogram 06/2021 ([facility]): EF 58%. Normal RV. No . Mild MR. Normal PAPS Zio patch 09/2021: Average HR 68, range 47 - 156 bpm. < 1% PACs and PVCs. 20 SVT episodes, longest 25 s w/ average rate of 118 bpm. Nocturnal B, no pauses or higher degree heart block. EKG from today reviewed and interpreted to show NSR, RBBB + LAFB, no ischemic changes; rate 72/', HI 164 ms, QRS 144 ms, QTc 477 ms PHYSICAL EXAMINATION GENERAL: Pleasant, no acute distress. HEENT: Anicteric, mucous membranes moist. NECK: Supple, normal jugular venous pressure, brisk carotid upstrokes, no bruits. CHEST: Nontender. LUNGS: Clear to auscultation bilaterally, no rhonchi rales or wheezes. HEART: Regular rate and rhythm, normal S1-S2, no murmurs. ABDOMEN: Soft, nontender, nondistended, bowel sounds present, no bruits. EXTREM: No cyanosis or edema, equal pulses. SKIN: Warm and dry, no rashes. NEURO: Alert and oriented x3, grossly intact ORDERS/MEDICATION CHANGES Other Orders Placed This Visit Procedures ??? EKG 12 lead There are no discontinued medications. No orders of the defined types were placed in this encounter. Jolene Amador MD, PhD documented in this encounter Plan of Treatment Not on file documented as of this encounter Procedures Procedure Name Priority Date/Time Associated Diagnosis Comments ECG REPORT - SCANNED 12/10/2021 14:38 EDT EKG 12-LEAD Routine 12/10/2021 13:40 EDT PSVT (paroxysmal supraventricular tachycardia) ([facility]) ([facility]) documented in this encounter Results * ECG REPORT - SCANNED (12/10/2021 14:38 EDT) 12/10/2021 14:3 8 EDT us Scan 2 Accounting Systems Manager PROCEDURE/MINOR SURGICAL OR DERABLES Final Result * EKG 12-LEAD (12/10/2021 13:40 EDT) 12/10/2021 13:4 0 EDT Narrative [facility] - 12/10/2021 14:30 EDT ? CVC ? Test Date: ?2021-12-10 Pat Name: ? KEN COLE ? Department: ? Room: ? Gender: ? Male ? Forestry Aid Technician: ?? KP : ?1945 ? Requested By: PERRY JOLENE Order Number: [id number] ? Reading MD: ?? JOLENE AMADOR MD ? Measurements Intervals ?Seney ? Rate: ? 72 ? P: ?81 HI: ? 164 ?QRS: ?-80 QRSD: ? 144 ?T: ?68 QT: ? 436 ? QTc: ?477 ? Interpretive Statements Normal sinus rhythm Right bundle branch block Left anterior fascicular block Bifascicular block No previous ECG available for comparison I reviewed the tracing and have either agreed or edited the findings in this report. Electronically Signed On 12-10-2021 14:30:31 EDT by JOLENE AMADOR MD. Procedure Note Jolene Amador MD - 12/10/2021 CVC Test Date: 2021-12-10 Pat Name: KEN COLE Department: Room: Gender: Male Forestry Aid Technician: : 1945 Requested By: PERRY FERNÁNDEZ Order Number: [id number] Reading MD: JOLENE AMADOR MD Measurements Intervals Seney Rate: 72 P: 81 HI: 164 QRS: -80 QRSD: 144 T: 68 QT: 436 QTc: 477 Interpretive Statements Normal sinus rhythm Right bundle branch block Left anterior fascicular block Bifascicular block No previous ECG available for comparison I reviewed the tracing and have either agreed or edited the findings inthis report. Electronically Signed On 12-10-2021 14:30:31 EDT by JOLENE HINES. 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
--- OUTSIDE RECORDS SUMMARY | 2024-07-09 10:59 | XMS_ITS | Encounter Summary ---
Author Organization [facility] Address [address] [place] [address] Care Team Providers Care Peoplesoft Financials Name Role Phone Manuel White MD Unavailable [phone] Marcella Waller Unavailable Reji Adams MD Primary Care Provider [phone] Reason for Visit * Reason Onset Date Comments Medication Questions 02/06/2022 Encounter Details Date Type Department Care Team (Late st Contact Info) Description 02/06/2022 Telephone [facility] - [facility] Adult Hematology & Oncology [address] [place] [id number] [place] [address] [facility] [address] [place] [address] (Fax) Medication Questions Social History Tobacco Use Types Packs/Day Years [...] Telephone Encounter - Scarlet Oates RN - 02/07/2022 0842 EDT Images from the original note were not included. Lindsay Espino MD Laggner, Rachel, RN No contraindications from my standpoint. ??Thank you. Patient notified, verbalized understanding. No further questions. * Telephone Encounter - Scarlet Oates RN - 02/06/[address] Espino - Please advise regarding celebrex * Telephone Encounter - Elli Sanders - 02/06/2022 1605 EDT Patient would like to know if taking celebrex will make his blood numbers go crazy. He doesn't want to take something that will cause him problems. Please give him a call. Thanks. documented in this encounter Plan of Treatment Not on file documented as of this encounter Visit Diagnoses Not on filedocumented in this encounter Care Teams Peoplesoft Financials Relationship Specialty Start Date End Date Reji Adams MD [facility] [place] [address] PCP - General 12/29/21 Manuel White MD [address] [place] [phone] Radiation Oncology 09/24/21 Marcella Waller [address] [facility] [place] [address] Waste Handling Technician 09/24/21 documented as of this encounter
--- OUTSIDE RECORDS SUMMARY | 2024-07-09 10:59 | XMS_ITS | Encounter Summary ---
Author Organization [facility] Address [address] [place] [address] Care Team Providers Care Merchant Tailor Name Role Phone Manuel White MD Unavailable [phone] Marcella Waller Unavailable Reji Adams MD Primary Care Provider [phone] Reason for Visit * Reason Onset Date Comments Back Pain 12/31/2021 Encounter Details Date Type Department Care Team (Late st Contact Info) Description 12/31/2021 Telephone [facility] Cancer Treatment [place] [address] [place], [place] [phone] Manuel White MD [address] [facility] [address] [place] [address] Back Pain Social History Tobacco Use Types [...] Telephone Encounter - Manuel White MD - 12/31/2021 1643 EDT Called back Ken was spoken with one of our nurses regarding his 3-week history of back pain beginning after working on a lawnmower and also lifting a air conditioner. He has been seen in [facility] and utilizing Tylenol, body care manager, heat and acupuncture. He is not seeing significant imp rovement and has had back pain in the past. He was concerned that a practitioner mention that his prostate cancer as a possible cause of his back pain and we discussed that PSA less than 3 months agowas undetectable at <0.064 such that a prostate cancer bony etiology is felt to be unlikely. He will see Dr. Espino later this month and likely have repeat blood work and PSA. documented in this encounter Plan of Treatment Not on file documented as of this encounter Visit Diagnoses Diagnosis Prostate cancer ([facility])- Primary Malignant neoplasm of prostate documented in this encounter Care Teams Merchant Tailor Relationship Specialty Start Date End Date Reji Adams MD [facility] [place] [id number] PCP - General 12/29/21 Manuel White MD [address] [place] [phone] Radiation Oncology 09/24/21 Marcella Waller ,[address] [place] [address] Rubber Thread Spooler 09/24/21 documented as of this encounter
--- OUTSIDE RECORDS SUMMARY | 2024-07-09 10:59 | XMS_ITS | Encounter Summary ---
Author Organization [facility] Address [address] [place] [address] Care Team Providers Care Cane Flume Watchman Name Role Phone Manuel White MD Unavailable [phone] Marcella Waller Unavailable Encounter Details Date Type Department Care Team (Late st Contact Info) Description 10/29/2021 Results Only [facility] Radiation Oncology - [facility] [address] [place], [place] [phone] Unknown, Provider, Social History Tobacco Use Types [...] Date/Time Associated Diagnosis Comments RAD ONC ARIA COURSE SUMMARY Routine 10/29/2021 13:48 EDT documented in this encounter Results * RAD ONC ARIA COURSE SUMMARY (10/29/2021 13:48 EDT) [facility] Course ID [id number] ARIA RADIATION ONCOLOGY Course End Date 10/29/2021 13:47 ARIA RADIATION ONCOLOGY Course First Treatment Date 09/11/2021 10:37 ARIA RADIATION ONCOLOGY Course Last Treatment Date 10/24/2021 10:07 ARIA RADIATION ONCOLOGY Course Elapsed Days 43 ARIA RADIATION ONCOLOGY Reference Point ID PELVIC NODES ARIA RADIATION ONCOLOGY Reference Point Dosage Given to Date 45 Gy [facility] RADIATION ONCOLOGY Reference Point ID PROST BED TOTAL ARIA RADIATION ONCOLOGY Reference Point Dosage Given to Date [id number] Gy [facility] RADIATION ONCOLOGY Reference Point ID PROSTATE BED ARIA RADIATION ONCOLOGY Reference Point Dosage Given to Date [id number] Gy ARIA RADIATION ONCOLOGY Reference Point ID ProstateBed CD ARIA RADIATION ONCOLOGY Reference Point Dosage Given to Date 14 Gy ARIA RADIATION ONCOLOGY Reference Point ID R IliacNodeTOTAL ARIA RADIATION ONCOLOGY Reference Point Dosage Given to Date 10.15 Gy ARIA RADIATION ONCOLOGY Reference Point ID RT ILIAC NODE ARIA RADIATION ONCOLOGY Reference Point Dosage Given to Date 45 Gy ARIA RADIATION ONCOLOGY Reference Point ID RtIliac Node CD ARIA RADIATION ONCOLOGY Reference Point Dosage Given to Date 10.15 Gy ARIA RADIATION ONCOLOGY Plan ID [id number] ARIA RADIATION ONCOLOGY Plan Name [id number] ARIA RADIATION ONCOLOGY Plan Fractions Treated to Date 25 ARIA RADIATION ONCOLOGY Plan Total Fractions Prescribed 25 ARIA RADIATION ONCOLOGY Plan Prescribed Dose Per Fraction 2 Gy ARIA RADIATION ONCOLOGY Plan Total Prescribed Dose 5,000 cGy ARIA RADIATION ONCOLOGY Plan Primary Reference Point PROSTATE BED ARIA RADIATION ONCOLOGY Plan ID [id number] ARIA RADIATION ONCOLOGY Plan Name [id number] ARIA RADIATION ONCOLOGY Plan Fractions Treated to Date 7 ARIA RADIATION ONCOLOGY Plan Total Fractions Prescribed 7 ARIA RADIATION ONCOLOGY Plan Prescribed Dose Per Fraction 2 Gy ARIA RADIATION ONCOLOGY Plan Total Prescribed Dose 1,400 cGy ARIA RADIATION ONCOLOGY Plan Primary Reference Point ProstateBed CD ARIA RADIATION ONCOLOGY 10/29/2021 13:4 8 EDT us Provider Unknown MD RADIATION ONCOLOGY ORDERABLE S Final Result [facility] RADIATION ONCOLOGY documented in this encounter Visit Diagnoses Not on filedocumented in this encounter Care Teams Cane Flume Watchman Relationship Specialty Start Date End Date Manuel White MD [address] [place] [phone] Radiation Oncology 09/24/21 Marcella Waller [address] [facility],[address] [place] [address] Planting Machine Operator 09/24/21 documented as of this encounter
--- OUTSIDE RECORDS SUMMARY | 2024-07-09 10:59 | XMS_ITS | Encounter Summary ---
Author Organization [facility] Address [address] [place] [address] Care Team Providers Care Sap Pi Developer Name Role Phone Manuel White MD Unavailable [phone] Marcella Waller Unavailable Reji Adams MD Primary Care Provider [phone] Reason for Visit * (Routine/Next Available) - Receiving Office to Obtain Authorization Specialty Diagnoses / Procedures Referred By Duglas arizmendi Referred To Contact Procedures XR OUTSIDE IMAGES MSK Unknown, Provider, MD Referral ID Status Reason Start Date Expiration Date Visits Requested Visits Authorized [id number] Receiving Office to Obtain Authorization 04/17/2022 1 1 Encounter Details Date Type Department Care Team (Latest Contact Info) Description 02/02/2022 - 02/02/2022 23:59 EDT Hospital Encounter [facility] Secondary Reads [place] Discharge Disposition: Home [...] by mouth daily. 30 Tablet 2 12/20/2021 02/12/2022 predniSONE (DELTASONE) 5 mg tablet Take 1 Tablet by mouth daily. 30 Tablet 2 11/30/2021 03/01/2022 documented as of this encounter Discharge Disposition Disposition Code Departure Means Destination Home or Self Care documented in this encounter Plan of Treatment Not on file documented as of this encounter Procedures Procedure Name Priority Date/Time Associated Diagnosis Comments XR OUTSIDE IMAGES MSK Routine 02/02/2022 20:01 EDT documented in this encounter Results * XR OUTSIDE IMAGES MSK (02/02/2022 20:01 EDT) Narrative 04/17/2022 20:02 EDT This is a non-reportable exam. us Provider Unknown MD HUNG OTHER IMAGING ORDERABLES Final Result documented in this encounter Visit Diagnoses Not on filedocumented in this encounter Care Teams Sap Pi Developer Relationship Specialty Start Date End Date Reji Adams MD [facility] [id number] PCP - General 12/29/21 Manuel White MD [address] [place] [phone] Radiation Oncology 09/24/[address] [place] [address] Cotton Classer Aide 09/24/21 documented as of this encounter
--- OUTSIDE RECORDS SUMMARY | 2024-07-09 10:59 | XMS_ITS | Encounter Summary ---
Author Organization [facility] Address [address] [place] [address] Care Team Providers Care Laborer Tanbark Name Role Phone Manuel White MD Unavailable [phone] Marcella Waller Unavailable Reji Adams MD Primary Care Provider [phone] Jonathan Young MD Unavailable [phone] Reason for Visit * Reason Onset Date Comments Fatigue 02/18/2022 Encounter Details Date Type Department Care Team (Late st Contact Info) Description 02/18/2022 Telephone [facility] Adult Hematology & Oncology [address] [place] [phone] [place] [address] [facility] [address] [place] [address] (Fax) Fatigue Social History Tobacco Use Types Packs/Day Years [...] Telephone Encounter - Dorothy Cole RN - 02/19/2022 1049 EDT Lindsay Espino MD to [place] 10:44 Lets send in gabapentin 300 mg at bedtime. All the side effects he is experiencing are from hormonal therapy. He could try some acupuncture. 10:50 Called patient back given above information, states he has tried acupuncture in the past with no relief. He will try gabapentin and follow up the end of February. * Telephone Encounter - Dorothy Cole RN - 02/19/2022 1033 EDT Patient states no energy, night/day sweats having to shower morning, nights and washing the sheets everyday. Night sweats are out of hand there was a medication mentioned to try to help with this he would like to move forward with this. Denies fevers States, bones aching constantly Not sleeping well, wanting to know if you would like to check labs prior to his appointment on March 26 or if anything else would be indicated? Please advise Scripts to be sent to: * Telephone Encounter - Layla Lizarraga - 02/18/2022 1444 EDT Pt called and stated he is not feeling well. He is unable to sleep and is fatigued all day. He alsostated he is having bone pain (all over). Would like to call to discuss. Please call. documented in this encounter Plan of Treatment Not on file documented as of this encounter Visit Diagnoses Not on filedocumented in this encounter Care Teams Laborer Tanbark Relationship Specialty Start Date End Date Reji Adams MD [facility] [place] [address] PCP - General 12/29/21 Manuel White MD [address] [place] [phone] Radiation Oncology 09/24/21 Marcella Waller [address] [place] [address] Digital Strategy Manager 09/24/21 Jonathan Young MD [address] [place] [address] [place] [address] Mental Health Case Manager Cardiovascular Disease 03/11/22 documented as of this encounter
--- OUTSIDE RECORDS SUMMARY | 2024-07-09 10:59 | XMS_ITS | Encounter Summary ---
Author Organization [facility] Address [address] [place] [address] Care Team Providers Care Mule Spinner Name Role Phone Manuel White MD Unavailable [phone] Marcella Waller Unavailable Unknown, Provider Primary Care Provider Reji Ruvalcaba MD Primary Care Provider [phone] Jonathan Young MD Unavailable [phone] Reason for Visit * Reason Onset Date Comments Medications Refill 11/04/2021 Encounter Details Date Type Department Care Team (Late st Contact Info) Description 11/04/2021 Refill [facility] Adult Hematology & Oncology [address] [place] [phone] [place] [address] [facility] [address] [place] [address] Medications Refill Social History Tobacco Use Types [...] on filedocumented in this encounter Care Teams Mule Spinner Relationship Specialty Start Date End Date Unknown, Provider, MD [address] [place] [address] PCP - General 12/10/21 12/28/21 Reji Adams MD [facility] [address] PCP - General 12/29/21 Manuel White MD [address] [place] [address] Radiation Oncology 09/24/[address] [place] [address] Oracle Erp Developer 09/24/21 Jonathan Young MD [address] [place] [address] [place] [address] Reading Instructor Cardiovascular Disease 03/11/22 documented as of this encounter
--- OUTSIDE RECORDS SUMMARY | 2024-07-09 10:59 | XMS_ITS | Encounter Summary ---
Author Organization [facility] Address [address] [place] [address] Care Team Providers Care Oval Or Circular Glass Cutter Name Role Phone Manuel White MD Unavailable [phone] Marcella Waller Unavailable Unknown, Provider Primary Care Provider Reji Ruvalcaba MD Primary Care Provider [phone] Jonathan Young MD Unavailable [phone] Reason for Visit * Reason Comments Other Encounter Details Date Type Department Care Team (Late st Contact Info) Description 11/04/2021 Refill [facility] Adult Hematology & Oncology [address] [place] [address] [place] [id number] [facility] [address] [place] [address] (Fax) Other Social History Tobacco Use Types Packs/Day [...] End Date predniSONE (DELTASONE) 5 mg tablet TAKE 1 TABLET BY MOUTH ONE TIME DAILY 30 Tablet 2 11/05/2021 11/29/2021 documented in this encounter Miscellaneous Notes * Telephone Encounter - Pat Sommer RN - 11/05/2021 1027 EDT Request from Pharmacy - Last seen:09/27/2021 Last refilled:10/02/[address] ESPINO - Agree w/ attached? documented in this encounter Plan of Treatment Not on file documented as of this encounter Visit Diagnoses Not on filedocumented in this encounter Discontinued Medications Medication Sig Discontinue Reason Start Date End Da te predniSONE (DELTASONE) 5 mg tablet Take 1 Tablet by mouth daily for 90 days. 10/02/2021 11/05/2021 documented as of this encounter Care Teams Oval Or Circular Glass Cutter Relationship Specialty Start Date End Date Unknown, Provider, MD [address] [place] [address] PCP - General 12/10/21 12/28/21 Reji Adams MD [facility] [place] [address] PCP - General 12/29/21 Manuel White MD [address] [place] [address] Radiation Oncology 09/24/[address] [place] [address] Outside B2B Sales 09/24/21 Jonathan Young MD [address] [place] [address] [address] [place] [address] Component Assembler Cardiovascular Disease 03/11/22 documented as of this encounter
--- OUTSIDE RECORDS SUMMARY | 2024-07-09 10:59 | XMS_ITS | Encounter Summary ---
Author Organization [facility] Address [address] [place] [address] Care Team Providers Care Embedded Nurse Name Role Phone Manuel White MD Unavailable [phone] Marcella Waller Unavailable Unknown, Provider MD Primary Care Provider Unava ilable Reason for Visit * Reason Onset Date Comments Other 12/12/2021 [facility] Patient Lei igation Encounter Details Date Type Department Care Team (Late st Contact Info) Description 12/12/2021 Telephone [facility] [place] [place] Oncology [facility] [place] [address] Marcella Waller [address] [place] [address] Other ([facility] Patient Navigation ) Social History Tobacco Use Types Packs/Day [...] * Telephone Encounter - Marcella Waller - 12/12/2021 1214 EDT HECTOR approved for Zytiga - PT will forward letter to this navigator. PT will continue to qualify for Treatment with Brad Gracia L.AC. documented in this encounter Plan of Treatment Not on file documented as of this encounter Visit Diagnoses Not on filedocumented in this encounter Care Teams Embedded Nurse Relationship Specialty Start Date End Date Unknown, Provider, MD [address] [place] [address] PCP - General 12/10/21 12/28/21 Manuel White MD [address] [place] [phone] Radiation Oncology 09/24/[address] [place] [address] Waterworks Employee 09/24/21 documented as of this encounter
--- OUTSIDE RECORDS SUMMARY | 2024-07-09 10:59 | XMS_ITS | Encounter Summary ---
Author Organization [facility] Address [address] [place] [address] Care Team Providers Care Chief Innovation Officer Name Role Phone Manuel White MD Unavailable [phone] Marcella Waller Unavailable Reji Adams MD Primary Care Provider [phone] Reason for Visit * Reason Onset Date Comments Medications Refill 02/12/2022 Encounter Details Date Type Department Care Team (Late st Contact Info) Description 02/12/2022 Refill [facility] Adult Hematology & Oncology [address] [place] [id number] Isidra Hunt, AGNIESZKA Medications Refill Social History Tobacco Use [...] by mouth daily. 120 Tablet 2 02/12/2022 2 abiraterone 250 mg tablet Take 4 Tablets by mouth daily. 30 Tablet 2 02/12/2022 2 documented in this encounter Miscellaneous Notes * Addendum Note - Isidra Hunt RN - 02/12/2022 1459 EDTAddended by: ISIDRA HUNT on: 02/12/2022 14:59 Modules accepted: Orders * Telephone Encounter - Isidra Hunt RN - 02/12/2022 4698 EDT Bioplus called quantity corrected to #120 * Telephone Encounter - Isidra Hunt RN - 02/12/2022 1332 EDT Refill request received via prescription line from [facility] for Shay. Last filled: 12/20/21 Last seen: 01/22/22 per office note: PLAN: ?? 1. ??Continue abiraterone and prednisone. He will continue Lupron under the supervision of his urologist. 2. Return for follow-up in 2 months. Please review and sign if you agree. Thank you documented in this encounter Plan of Treatment Not on file documented as of this encounter Visit Diagnoses Not on filedocumented in this encounter Discontinued Medications Medication Sig Discontinue Reason Start Date End Da te abiraterone 250 mg tablet Take 4 Tablets by mouth daily. Reorder 12/20/2021 02/12/2022 abiraterone 250 mg tablet Take 4 Tablets by mouth daily. 02/12/2022 02/12/2022 documented as of this encounter Care Teams Chief Innovation Officer Relationship Specialty Start Date End Date Reji Adams MD [facility] [place] [address] [place] [address] PCP - General 12/29/21 Manuel White MD [address] [place] [phone] Radiation Oncology 09/24/21 Marcella Waller [address] [facility] [place] [address] Director Of Photography 09/24/21 documented as of this encounter
--- OUTSIDE RECORDS SUMMARY | 2024-07-09 10:59 | XMS_ITS | Encounter Summary ---
Author Organization [facility] Address [address] [place] [address] Care Team Providers Care Programs Assistant Name Role Phone Manuel White MD Unavailable [phone] Marcella Waller Unavailable Unknown, Provider Primary Care Provider Unalupe ilable Encounter Details Date Type Department Care Team (Late st Contact Info) Description 12/20/2021 Orders Only [facility] Adult Hematology & Oncology [address] [place] [address] Scarlet Oates, RN Social History Tobacco Use Types Packs/Day [...] documented in this encounter Progress Notes * Scarlet Oates, AGNIESZKA - 12/20/2021 0905 EDT documented in this encounter Plan of Treatment Not on file documented as of this encounter Visit Diagnoses Not on filedocumented in this encounter Care Teams Programs Assistant Relationship Specialty Start Date End Date Unknown, Provider, MD [address] [place] [address] PCP - General 12/10/21 12/28/21 Manuel White MD [address] [place] [phone] Radiation Oncology 09/24/[address] [place] [address] Yarding Supervisor 09/24/21 documented as of this encounter
--- OUTSIDE RECORDS SUMMARY | 2024-07-09 10:59 | XMS_ITS | Encounter Summary ---
Author Organization [facility] Address [address] [place] [address] Care Team Providers Care Lending Manager Name Role Phone Manuel White MD Unavailable [phone] Marcella Waller Unavailable Reason for Visit * Reason Comments Prostate Cancer Encounter Details Date Type Department Care Team (Late st Contact Info) Description 10/24/2021 Radiation Therapy Visit [facility] [address] [place] [address] Manuel White MD [address] [facility] [address] [place] [address] Prostate cancer (HCC-CMS) (HCC) (HCC-CMS) [...] Progress Notes * Manuel White MD - 10/24/2021 1017 EDT Images from the original note were not included. Radiation Oncology- On Treatment Visit On Treatment Visit Assessment:10/24/21 Ken Mckeon is currently receiving radiation therapy treatment and is being seen today for his weekly on treatment visit. Encounter Diagnosis: ICD-10-CM ICD-9-CM 1. Prostate cancer (HCC-CMS) ([facility]) C61 185 Radiation Therapy Dose: 6400 cGy Radiation Treatments Active Reference Points PELVIC NODES Most recent treatment: Dose given: 180 cGy (on 10/15/2021) Total: Dose given: 4,500 cGy Elapsed Days: 34 PROST BED TOTAL Most recent treatment: Dose given: 200 cGy (on 10/24/2021) Total: Dose given: 6,400 cGy Elapsed Days: 43 PROSTATE BED Most recent treatment: Dose given: 200 cGy (on 10/15/2021) Total: Dose given: 5,000 cGy Elapsed Days: 34 ProstateBed CD Most recent treatment: Dose given: 200 cGy (on 10/24/2021) Total: Dose given: 1,400 cGy Elapsed Days: 43 R IliacNodeTOTAL Most recent treatment: Dose given: 145 cGy (on 10/24/2021) Total: Dose given: 1,015 cGy Elapsed Days: 43 RT ILIAC NODE Most recent treatment: Dose given: 180 cGy (on 10/15/2021) Total: Dose given: 4,500 cGy Elapsed Days: 34 RtIliac Node CD Most recent treatment: Dose given: 145 cGy (on 10/24/2021) Total: Dose given: 1,015 cGy Elapsed Days: 43 No flowsheet data found. Subjective Note: No diarrhea and some increase in gas. Nocturia x 1 now. Hot flashes not waking but sweating. Physical Exam: There were no vitals filed for this visit. Wt Readings from Last 3 Encounters: 10/22/21 88 kg (194 lb) 10/15/21 89.7 kg (197 lb 11.2 oz) 10/15/21 88.9 kg (196 lb) (0) Fully active, able to carry on all predisease performance without restriction Treatment Related Toxicity: Hot flashes Radiation Fatigue: (1) Fatigue relieved by rest Current Labs: Lab Results Component Value Date WBC 4.12 10/15/2021 HGB 13.2 (L) 10/15/2021 HCT 37.7 (L) 10/15/2021 PLT 131 (L) 10/15/2021 ALT 35 10/15/2021 AST 33 10/15/2021 NA 139 10/15/2021 K 4.1 10/15/2021 CL 104 10/15/2021 CREATININE 0.78 10/15/2021 BUN 22 10/15/2021 CO2 29 10/15/2021 PSA <0.064 10/15/2021 Medication Reconciliation: Medications were reviewed with the patient. Impression: Ken Mckeon is tolerating treatment well and completes today. Plan: 11/11/21 Dr Aj Massey, [place] Dr. Espino to see next month Looking for PCP at this time and having problems. Reviewed treatment set up notes. Checked and approved portal images/CBCT. Reviewed dose delivery treatment parameters and deemed appropriate. After assessing the patient's response to treatment thus far, we will continue with radiation treatments as planned. Manuel White MD Radiation Oncology-[facility] (p) [phone] / (f) [phone] documented in this encounter Plan of Treatment Not on file documented as of this encounter Visit Diagnoses Diagnosis Prostate cancer (HCC-CMS)- Primary Malignant neoplasm of prostate documented in this encounter Care Teams Lending Manager Relationship Specialty Start Date End Date Manuel White MD [address] [place] [address] Radiation Oncology 09/24/21 Marcella Waller [address] [place] [address] Human Resources Officer 09/24/21 documented as of this encounter
--- OUTSIDE RECORDS SUMMARY | 2024-07-09 10:59 | XMS_ITS | Encounter Summary ---
Author Organization [facility] Address [address] [place] [address] Care Team Providers Care Boat Camp Operator Name Role Phone Manuel White MD Unavailable [phone] Marcella Waller Unavailable Reji Adams MD Primary Care Provider [phone] Reason for Visit * Reason Comments Stress Management Encounter Details Date Type Department Care Team (Latest Contact Info) Description 02/26/2022 11:00 EDT Community Health Team [facility] Adult Hematology & Oncology [address] [place] [id number] Augusta Meade, [address], [facility] [address] [place] [address] Adjustment disorder with mixed anxiety [...] Primary documented in this encounter Care Teams Boat Camp Operator Relationship Specialty Start Date End Date Reji Adams MD [facility] [place] [address] PCP - General 12/29/21 Manuel White MD [address] [place] [phone] Radiation Oncology 09/24/21 Marcella Waller [address] [place] [address] Animal Care Taker 09/24/21 documented as of this encounter
--- OUTSIDE RECORDS SUMMARY | 2024-07-09 10:59 | XMS_ITS | Encounter Summary ---
Author Organization [facility] Address [address] [place] [address] Care Team Providers Care Wool Batting Worker Name Role Phone Manuel White MD Unavailable [phone] Marcella Waller Unavailable Reason for Visit * Reason Comments Follow-up Encounter Details Date Type Department Care Team (Late st Contact Info) Description 11/19/2021 16:00 EDT Office Visit [facility] Adult Hematology & Oncology [address] [place] [address] [phone] [place] [address] [facility] [address] [place] [address] (Fax) Prostate cancer (HCC-CMS) (HCC) (HCC-CMS) (Primary Dx); Excessive sweating Social History Tobacco Use Types Packs/Day Years [...] Sign Reading Time Taken Comments Blood Pressure 138/68 11/19/2021 1609 EDT Pulse 72 11/19/2021 1609 EDT Temperature - - Respiratory Rate - - Oxygen Saturation 98% 11/19/2021 1609 EDT Inhaled Oxygen Concentration - - Weight 88.9 kg (196 lb) 11/19/2021 1609 EDT Height - - Body Mass Index 27.73 03/29/2016 0847 EDT documented in this encounter [...] Progress Notes * Lindsay Espino MD - 11/19/2021 1600 EDT Images from the original note were not included. Hematology/Oncology Follow up Note [facility] [place] Visit Today's visit was provided through telemedicine video conferencing: The location of the patient: Clinic The location of the provider: Home office Verbal consent: The concept of ???Telemedicine?? has been described to the patient.Patient has been informed of the anticipated benefits and possible risks. Patient understands the information provided regarding telemedicine, has had the opportunity to ask questions about this information, and all questions have been answered to patient???s satisfaction. Patient consents for the use of telemedicine in his/her medical care and authorizes the transmission of any relevant medical information to providers and their staff involved in patient???s medical or mental health care. Verbal consent obtained by myself or auxiliary staff: yes. Oncology History Prostate cancer ([facility] ([facility]) 07/19/2006 Initial Diagnosis Prostate cancer 07/19/2006 Initial [...] [facility]ology [facility] at [facility] showed Sinan 4+5 involving 20 to 50% [...] 22, 2019: Nuclear medicine bone scan at [facility] showed no evidence of bony metastatic disease 05/18/2019 Surgery 05/18/2019 Surgery May 18, 2019: Radical prostatectomy with pathology reviewed at [facility] showed Sinan 4+5 involving 10% of the [...] raising concern for a metastatic deposit 07/12/2021 Darlinrayna Marroquin day MRI spine. No evidence of osseous metastasis in the lumbar spine with mild lumbar spondylosis. 09/11/2021 - 10/24/2021 Radiation Therapy -08/10/21: Lupron -Started radiation therapy. 09/12/2021 - Chemotherapy Abiraterone and prednisone. Interim History: This is a video visit. He continues to have intermittent episodes of palpitations. Scheduled to seecardiology next month. Complaining of hot flashes and excess sweating especially during nights. Waking up 3-4 times a night because of the sweating. Energy level is slightly better. Review of Systems Constitutional: Negative for chills, [...] mouth as needed for Sleep. Taking ??? leuprolide (ELIGARD, 3 MONTH,) 22.5 mg injection Inject 1 mg into the skin once. Taking ??? pravastatin (PRAVACHOL) 20 mg tablet Take 20 mg by mouth daily. Taking ??? predniSONE (DELTASONE) 5 mg tablet TAKE 1 TABLET BY MOUTH ONE TIME DAILY 30 Tablet 2 Taking No current facility-administered medications for this visit. Vitals: 11/19/21 1609 BP: 138/68 Pulse: 72 SpO2: 98% Weight: 88.9 kg (196 lb) Wt Readings from Last 3 Encounters: 11/19/21 88.9 kg (196 lb) 11/19/21 89.4 kg (197 lb) 10/22/21 88 kg (194 lb) Performance Status: (0) Fully active, able to carry on all predisease performance without restriction Physical Exam ASSESSMENT: 75-year-old male who is s/p radical prostatectomy in April 2019 for diagnosis of localized prostate cancer with rising PSA and PET scan showing possible lymph node recurrence. ?? 1. Recurrent prostate cancer s/p radical prostatectomy. PSMA PET scan at [facility] showed mild FDG uptake particularly in the larger right external iliac lymph node concerning for metastasis. Given the lymph node recurrence and high decipher score, he was started on abiraterone along with ADT plus radiation. He has been tolerating the abiraterone relatively well. CBC reviewed from today. Platelet count hasnormalized and hemoglobin is stable around 12.9. LFTs from previous visit were within normal limits. 2. Palpitations. Was on the Zio patch. Has appointment with Dr. Young next month. 3. Hot flashes and excessive sweating particularly at nights. Likely secondary to androgen deprivation. Tried acupuncture with no relief. Could consider gabapentin at nighttime if it continues to be an issue. PLAN: 1. Continue abiraterone and prednisone. He will continue Lupron under the supervision of Dr. White. 2. Follow-up CMP. 3. Return for follow-up in 2 months. Other Orders Placed This Visit Procedures ??? Complete Blood Count and Differential ??? Comprehensive Metabolic Panel (CMP) Lindsay Espino MD Hematology/Oncology [facility] Cc: A total of 20 minutes was spent on this encounter on the day of this encounter. The following individuals and their role did participate in today's encounter visit: Provider: Lindsay Espino MD Patient * Isidra Hunt RN - 11/19/2021 1600 EDT Procedures: - Venipuncture Performed by: ISIDRA HUNT RN Site Collected: DSD Applied Volume Withdrawn: LAV EDTA 3.0 mL and [place] SST 8.5 mL Patient Response:Patient tolerated venipuncture well and Butterfly used Number of attempts: Collected on: 11/19/21 16:10 Ordering Provider:Lindsay Espino MD documented in this encounter Plan of Treatment Not on file documented as of this encounter Procedures Procedure Name Priority Date/Time Associated Diagnosis Comments COMPLETE BLOOD COUNT AND DIFFERENTIAL Routine 11/19/2021 16:09 EDT Prostate cancer (HCC-CMS) (HCC) (HCC-CMS) COMPREHENSIVE METABOLIC PANEL (CMP) Routine 11/19/2021 16:09 EDT Prostate cancer (HCC-CMS) (HCC) (HCC-CMS) documented in this encounter Results * (ABNORMAL) COMPREHENSIVE METABOLIC PANEL (CMP) (11/19/2021 16:09 EDT) Sodium 138 136 - 145 mmol/L 11/20/2021 9:48 EDT [facility] Potassium 4.6 3.5 - 5.0 mmol/L 11/20/2021 9:48 EDT [facility] Chloride 106 96 - 110 mmol/L 11/20/2021 9:48 EDT [facility] CO2 Total 20(L) 22 - 32 mmol/L 11/20/2021 9:48 EDT [facility] Glucose 87 70 - 100 mg/dL [facility] BUN 25 10 - 26 mg/dL 11/20/2021 9:48 [facility] Creatinine 0.95 0.66 - 1.25 mg/dL 11/20/2021 9:48 [facility] eGFR 83 >60 mL/min/1.7 3m2 11/20/2021 9:48 [facility] Total Protein 6.5 6.3 - 8.2 g/dL 11/20/2021 9:48 [facility] Albumin 4.1 3.4 - 4.9 g/dL 11/20/2021 9:48 [facility] Alkaline Phosphatase 53 38 - 126 U/L 11/20/2021 9:48 [facility] AST 33 15 - 46 U/L 11/20/2021 9:48 [facility] ALT 27 <50 U/L 11/20/2021 9:48 [facility] Bilirubin, Total 0.7 <1.4 mg/dL 11/21/19 9:48 [facility] Calcium 9.2 8.5 - 10.5 mg/dL 11/20/2021 9:48 [facility] Albumin/Globulin Ratio 1.7 1.0 - 2.5 11/20/2021 9:48 [facility] Anion Gap 12 5 - 14 11/20/2021 9:48 [facility] Blood VENOUS BLOOD / Unknown Venipuncture / Unknown 11/19/2021 16:09 EDT 11/19/2021 16:09 EDT us Lindsay Espino MD CHEMISTRY & BLOOD GAS ORDERAB LES Final Result [facility] [address] [place] [address] * (ABNORMAL) COMPLETE BLOOD COUNT AND DIFFERENTIAL (11/19/2021 16:09 EDT) WBC 4.90 4.00 - 10.40 K/cmm 11/19/2021 16:19 EDT [facility] RBC 4.00(L) 4.36 - 5.78 M/cmm 11/19/2021 16:19 T [facility] ONCOLOGY [facility] Hemoglobin 12.9(L) 13.8 - 17.3 gm/dL 11/19/2021 16:19 EDT [facility] ONCOL[facility] HCT 37.0 % 11/19/2021 16:19 EDT [facility] & ONCOLOGY [facility] MCV 93 81 - 95 fl 11/19/2021 16:19 EDT [facility] MCH 32.3 27.6 - 33.0 pg 11/19/2021 16:19 EDT [facility] MCHC 34.9 32.8 - 36.4 gm/dL 11/19/2021 16:19 T [facility] RDW-CV 14.7(H) <14.2 % 11/19/2021 16:19 T [facility] RDW-SD 48.0(H) <46.0 fl 11/19/2021 16:19 EDT [facility] ONCOL[facility] PLT 149 141 - 377 K/cmm 11/19/2021 16:19 T [facility] MPV 9.0(L) 9.5 - 12.7 fl 11/19/2021 16:19 T [facility] % Neutrophils 69.8 % 11/19/2021 16:19 [facility] HEMATOLOG[facility] & ONCOLOGY [facility] % Lymphocytes 19.0 % 11/19/2021 16:19 T [facility] % Monocytes 8.4 % 11/19/2021 16:19 T [facility] % Eosinophils 2.4 % 11/19/2021 16:19 T [facility] % Basophils 0.4 % 11/19/2021 16:19 [facility] ONCOLOGY [facility] % Immature Grans 11/20/19 16:19 T [facility] Absolute Neutrophils 3.42 2.20 - 8.85 K/cmm 11/19/2021 16:19 [facility] ONCOLOGY [facility] Absolute Lymphocytes 0.93(L) 1.09 - 3.30 K/cmm 11/19/2021 16:19 EDT [facility] Absolute Monocytes 0.41 0.10 - 0.80 K/cmm 11/19/2021 16:19 EDT [facility] Absolute Eosinophils 0.12 0.03 - 0.61 K/cmm 11/19/2021 16:19 EDT [facility] ABS Basophils 0.02 0.01 - 0.11 K/cmm 11/19/2021 16:19 EDT [facility] Absolute Immature Grans 11/19/2021 16:19 EDT [facility] Type of Differential: Auto 11/19/2021 16:19 EDT [facility] Blood VENOUS BLOOD / Unknown Venipuncture / Unknown 11/19/2021 16:09 EDT 11/19/2021 16:09 EDT Lindsay Espino MD PACKAGES & DNA PROBE ORDERABL ES Final Result [facility] Medical Office [address] documented in this encounter Visit Diagnoses Diagnosis Prostate cancer (HCC-CMS)- Primary Malignant neoplasm of prostate Excessive sweating Generalized hyperhidrosis documented in this encounter Discontinued Medications Medication Sig Discontinue Reason Start Date End Da te cholecalciferol, vitamin D3, (VITAMIN D3 ORAL) Take 2,000 Int'l Units by mouth daily. 11/19/2021 senna (SENOKOT) 8.6 mg tabletIndications:consti pation Take 1 Tablet by mouth daily. 11/19/2021 documented as of this encounter Care Teams Wool Batting Worker Relationship Specialty Start Date End Date Manuel White MD [address] [phone] Radiation Oncology 09/24/21 Marcella Waller [address] [place] [address] Wood Form Builder 09/24/21 documented as of this encounter
--- OUTSIDE RECORDS SUMMARY | 2024-07-09 10:59 | XMS_ITS | Encounter Summary ---
Author Organization [facility] Address [address] [place] [address] Care Team Providers Care Automotive Fuel Systems Converter Name Role Phone Manuel White MD Unavailable [phone] Marcella Waller Unavailable Reji Adams MD Primary Care Provider [phone] Reason for Visit * Reason Onset Date Comments Medication Problem 03/01/2022 Encounter Details Date Type Department Care Team (Late st Contact Info) Description 03/01/2022 Telephone [facility] Adult Hematology & Oncology [address] [place] [id number] [place] [address] [facility] [address] [place] [address] (Fax) Medication Problem Social History Tobacco Use Types Packs/Day Years [...] tablet Take 1 Tablet by mouth daily. 5 Tablet 03/01/2022 03/08/2022 documented in this encounter Miscellaneous Notes * Telephone Encounter - Pat Sommer RN - 03/01/2022 0852 EDT Rx sent. Pt. Notified. * Telephone Encounter - Pat Sommer RN - 03/01/[address] ESPINO - Agree w/ attached? * Telephone Encounter - Elli Sanders - 03/01/2022 0820 EDT Patient would like a call. He is taking prednisone 5 mg one daily. He is short 5 pills. Asking if 5 pills can be sent to [place]. Thanks. documented in this encounter Plan of Treatment Not on file documented as of this encounter Visit Diagnoses Not on filedocumented in this encounter Discontinued Medications Medication Sig Discontinue Reason Start Date End Da te predniSONE (DELTASONE) 5 mg tablet Take 1 Tablet by mouth daily. Reorder 11/30/2021 03/01/2022 documented as of this encounter Care Teams Automotive Fuel Systems Converter Relationship Specialty Start Date End Date Reji Adams MD [facility] [place] [address] PCP - General 12/29/21 Manuel White MD [address] [place] [phone] Radiation Oncology 09/24/[address] [place] [phone] Brick Stacker 09/24/21 documented as of this encounter
--- OUTSIDE RECORDS SUMMARY | 2024-07-09 10:59 | XMS_ITS | Encounter Summary ---
Author Organization [facility] Address [address] [place] [address] Care Team Providers Care Industrial Trainer Name Role Phone Manuel White MD Unavailable [phone] Marcella Waller Unavailable Reason for Visit * Reason Onset Date Comments Medications Refill 11/29/2021 Encounter Details Date Type Department Care Team (Late st Contact Info) Description 11/29/2021 Refill [facility] Adult Hematology & Oncology [address] [place] [address] [place] [address] [facility] [address] [place] [address] Medications Refill Social History Tobacco Use Types [...] daily. 30 Tablet 2 11/30/2021 03/01/2022 documented in this encounter Miscellaneous Notes * Telephone Encounter - Dorothy Cole, RN - 11/30/2021 0805 EDT Refill request for Prednisone from pharmacy and patient- Last seen: 11/19/21 PLAN: ?? 1. ??Continue abiraterone and prednisone. He will continue Lupron under the supervision of Dr. White. 2. Follow-up CMP. 3. Return for follow-up in 2 months. Has f/u scheduled for 01/22/22 at 11:00am Ok to fill? ?? documented in this encounter Plan of Treatment Not on file documented as of this encounter Visit Diagnoses Not on filedocumented in this encounter Discontinued Medications Medication Sig Discontinue Reason Start Date End Da te predniSONE (DELTASONE) 5 mg tablet TAKE 1 TABLET BY MOUTH ONE TIME DAILY Reorder 11/05/2021 11/29/2021 documented as of this encounter Care Teams Industrial Trainer Relationship Specialty Start Date End Date Manuel White MD [address] [place] [phone] Radiation Oncology 09/24/21 Marcella Waller [facility] [address] [place] [address] Pump Rebuilder 09/24/21 documented as of this encounter
--- OUTSIDE RECORDS SUMMARY | 2024-07-09 10:59 | XMS_ITS | Encounter Summary ---
Author Organization [facility] Address [address] [place] [address] Care Team Providers Care Manager Transportation Name Role Phone Manuel White MD Unavailable [phone] Marcella Waller Unavailable Reji Adams MD Primary Care Provider [phone] Jonathan Young MD Unavailable [phone] Reason for Visit * Reason Onset Date Comments Medications Refill 03/08/2022 Encounter Details Date Type Department Care Team (Late st Contact Info) Description 03/08/2022 Refill [facility] Adult Hematology & Oncology [address] [place] [address] [phone] [place] [address] [facility] [address] [place] [address] (Fax) Medications Refill Social History Tobacco Use Types [...] 30 days. 30 Tablet 03/08/2022 04/05/2022 documented in this encounter Miscellaneous Notes * Telephone Encounter - Loreta He RN - 03/08/2022 09 EDT Refill request for Prednisone 5mg Last office visit SH 02/26/22 Plan Assessment/Plan: ?? Mr. Mckeon is a 76 yo male diagnosed with recurrent prostate cancer s/p radial prostatectomy evidenced by rising PSA and PET showing possible lymph node recurrence. Initiated treatment with Abiraterone, Prednisone, ADT and radiation. Pending visit ET 03/27/22 Last filled 03/01/22 (had been short 5 pills, short fill had been sent in) Please sign and send if you agree. * Telephone Encounter - Loreta He RN - 03/08/2022920 EDTFrom: Ken Mckeon To: Office of Lindsay Espino MD Sent: 03/08/2022 8:17 EDT Subject: Medication Renewal Request Refills have been requested for the following medications: predniSONE (DELTASONE) 5 mg tablet [Lindsay Espino MD] Preferred pharmacy: [id number] - [place], [place] - [address] [facility] documented in this encounter Plan of Treatment Not on file documented as of this encounter Visit Diagnoses Not on filedocumented in this encounter Discontinued Medications Medication Sig Discontinue Reason Start Date End Da te predniSONE (DELTASONE) 5 mg tablet Take 1 Tablet by mouth daily. Reorder 03/01/2022 03/08/2022 documented as of this encounter Care Teams Manager Transportation Relationship Specialty Start Date End Date Reji Adams MD [facility] [place] [address] PCP - General 12/29/21 Manuel White MD [address] [place] [phone] Radiation Oncology 09/24/21 Marcella Waller [address] [place] [address] Oracle Drm Consultant 09/24/21 Jonathan Young MD [address] [place] [address] [address] [place] [address] Filing Machine Operator Cardiovascular Disease 03/11/22 documented as of this encounter
--- OUTSIDE RECORDS SUMMARY | 2024-07-09 11:00 | XMS_ITS | Encounter Summary ---
Author Organization [facility] Address [address] [place] [address] Care Team Providers Care Gum Cook Name Role Phone Manuel White MD Unavailable [phone] Marcella Waller Unavailable Reason for Visit * Reason Onset Date Comments Medications Refill 10/18/2021 Encounter Details Date Type Department Care Team (Late st Contact Info) Description 10/18/2021 Refill [facility] Adult Hematology & Oncology [address] [place] [address] Dorothy Cole, AGNIESZKA Medications Refill Social History Tobacco Use [...] by mouth daily. 30 Tablet 2 10/18/2021 2 documented in this encounter Miscellaneous Notes * Telephone Encounter - Dorothy Cole, RN - 10/18/2021 0788 EDT Refill request from [facility] for Zytiga 1,000mg daily 2 refills Last seen: 10/15/21 per office note: PLAN: ?? 1. ??Continue abiraterone and prednisone. 2. Follow-up CMP. 3. Return for follow-up in 4 weeks. Last filled: 08/27/21 Please review and sign if you agree? documented in this encounter Plan of Treatment Not on file documented as of this encounter Visit Diagnoses Not on filedocumented in this encounter Discontinued Medications Medication Sig Discontinue Reason Start Date End Da te abiraterone 250 mg tablet Take 4 Tablets by mouth daily. Reorder 08/27/2021 10/18/2021 documented as of this encounter Care Teams Gum Cook Relationship Specialty Start Date End Date Manuel White MD [address] [place] [phone] Radiation Oncology 09/24/21 Marcella Waller [address] [place] [address],[address] [place] [address] Hardware Design Engineer 09/24/21 documented as of this encounter
--- OUTSIDE RECORDS SUMMARY | 2024-07-09 11:00 | XMS_ITS | Encounter Summary ---
Author Organization [facility] Address [address] [place] [address] Care Team Providers Care Clinical Nurse Leader Name Role Phone Manuel White MD Unavailable [phone] Marcella Waller Unavailable Encounter Details Date Type Department Care Team (Late st Contact Info) Description 10/22/2021 Documentation Visit [facility] Radiation Oncology - [facility] [address] [place] [address] Carolina Blackwood, RN Social History Tobacco Use [...] Progress Notes * Carolina Blackwood, RN - 10/22/2021 1014 EDT Gregg notes fatigue, mild burning with urination, nocturia x 1. documented in this encounter Plan of Treatment Not on file documented as of this encounter Visit Diagnoses Not on filedocumented in this encounter Care Teams Clinical Nurse Leader Relationship Specialty Start Date End Date Manuel White MD [address] [place] [phone] Radiation Oncology 09/24/[address] [place] [address] Manufacturing Baker 09/24/21 documented as of this encounter
--- OUTSIDE RECORDS SUMMARY | 2024-07-09 11:00 | XMS_ITS | Encounter Summary ---
Author Organization [facility] Address [address] [place] [address] Care Team Providers Care Swimming Coach Or Instructor Name Role Phone Manuel White MD Unavailable [phone] Marcella Waller Unavailable Encounter Details Date Type Department Care Team (Latest Contact Info) Description 10/11/2021 9:45 EDT - 10/11/2021 23:59 EDT Hospital Encounter [facility] [place] [address] [place] [address] Discharge Disposition: Home or Self Care Social [...] Tablets by mouth daily. 30 Tablet 2 08/27/2021 10/18/2021 cholecalciferol, vitamin D3, (VITAMIN D3 ORAL) Take [...] on filedocumented in this encounter Care Teams Swimming Coach Or Instructor Relationship Specialty Start Date End Date Manuel White MD [address] [place] [phone] Radiation Oncology 09/24/[address] [place] [address] Retina Subspecialist 09/24/21 documented as of this encounter
--- OUTSIDE RECORDS SUMMARY | 2024-07-09 11:00 | XMS_ITS | Encounter Summary ---
Author Organization [facility] Address [address] [place] [address] Care Team Providers Care Machine Fastener Name Role Phone Manuel White MD Unavailable [phone] Marcella Waller Unavailable Encounter Details Date Type Department Care Team (Late st Contact Info) Description 10/18/2021 Results Only [facility] Radiation Oncology - [facility] [address], [place] [id number] Unknown, Provider, Social History Tobacco Use Types [...] Comments RAD ONC ARIA SESSION SUMMARY Routine 10/18/2021 10:01 EDT documented in this encounter Results * RAD ONC ARIA SESSION SUMMARY (10/18/2021 10:01 EDT) Course ID C1 ARIA RADIATION ONCOLOGY Course First Treatment Date 09/11/2021 10:37 ARIA RADIATION ONCOLOGY Course Last Treatment Date 10/18/2021 10:02 ARIA RADIATION ONCOLOGY Course Elapsed Days 37 ARIA RADIATION ONCOLOGY Reference Point ID PROST BED TOTAL ARIA RADIATION ONCOLOGY Reference Point Dosage Given to Date 56 Gy ARIA RADIATION ONCOLOGY Reference Point Session Dosage Given 2 Gy ARIA RADIATION ONCOLOGY Reference Point ID ProstateBed CD ARIA RADIATION ONCOLOGY Reference Point Dosage Given to Date 6 Gy ARIA RADIATION ONCOLOGY Reference Point Session Dosage Given 2 Gy ARIA RADIATION ONCOLOGY Reference Point ID R IliacNodeTOTAL ARIA RADIATION ONCOLOGY Reference Point Dosage Given to Date 4.35 Gy ARIA RADIATION ONCOLOGY Reference Point Session Dosage Given 1.45 Gy ARIA RADIATION ONCOLOGY Reference Point ID RtIliac Node CD ARIA RADIATION ONCOLOGY Reference Point Dosage Given to Date 4.35 Gy ARIA RADIATION ONCOLOGY Reference Point Session Dosage Given 1.45 Gy ARIA RADIATION ONCOLOGY Plan ID [id number] ARIA RADIATION ONCOLOGY Plan Name [id number] ARIA RADIATION ONCOLOGY Plan Fractions Treated to Date 3 ARIA RADIATION ONCOLOGY Plan Total Fractions Prescribed 7 ARIA RADIATION ONCOLOGY Plan Prescribed Dose Per Fraction 2 Gy ARIA RADIATION ONCOLOGY Plan Total Prescribed Dose 1,400 cGy ARIA RADIATION ONCOLOGY Plan Primary Reference Point ProstateBed CD ARIA RADIATION ONCOLOGY 10/18/2021 10:0 1 EDT us Provider Unknown RADIATION ONCOLOGY ORDERABLE S Final Result ARIA RADIATION ONCOLOGY documented in this encounter Visit Diagnoses Not on filedocumented in this encounter Care Teams Machine Fastener Relationship Specialty Start Date End Date Manuel White MD [address] [place] [phone] Radiation Oncology 09/24/21 Marcella Waller [address] [facility] [place] [address] Vocational Training Teacher 09/24/21 documented as of this encounter
--- OUTSIDE RECORDS SUMMARY | 2024-07-09 11:00 | XMS_ITS | Encounter Summary ---
Author Organization [facility] Address [address] [place] [address] Care Team Providers Care Attendant Arcade Name Role Phone Manuel White MD Unavailable [phone] Marcella Waller Unavailable Reason for Visit * Reason Comments Prostate Cancer Encounter Details Date Type Department Care Team (Late st Contact Info) Description 10/17/2021 Radiation Therapy Visit [facility] Cancer Treatment [place] [address] [place] [address] Manuel White MD [address] [facility] [address] [place] [address] Prostate cancer (HCC-CMS) (HCC) (HCC-CMS) [...] Progress Notes * Manuel White MD - 10/17/2021 1015 EDT Images from the original note were not included. Radiation Oncology- On Treatment Visit On Treatment Visit Assessment:10/17/21 Ken Mckeon is currently receiving radiation therapy treatment and is being seen today for his weekly on treatment visit. Encounter Diagnosis: ICD-10-CM ICD-9-CM 1. Prostate cancer (HCC-CMS) (FORMERLY [facility]) C61 185 Radiation Therapy Dose: 5400 cGy Radiation Treatments Active Plans [id number] Most recent treatment: Dose planned: 200 cGy (fraction 2 on 10/17/2021) Total: Dose planned: 1,400 cGy (7 fractions) Elapsed Days: 36 Reference Points PELVIC NODES Most recent treatment: Dose given: 180 cGy (on 10/15/2021) Total: Dose given: 4,500 cGy Elapsed Days: 34 PROST BED TOTAL Most recent treatment: Dose given: 200 cGy (on 10/17/2021) Total: Dose given: 5,400 cGy Elapsed Days: 36 PROSTATE BED Most recent treatment: Dose given: 200 cGy (on 10/15/2021) Total: Dose given: 5,000 cGy Elapsed Days: 34 ProstateBed CD Most recent treatment: Dose given: 200 cGy (on 10/17/2021) Total: Dose given: 400 cGy Elapsed Days: 36 R IliacNodeTOTAL Most recent treatment: Dose given: 145 cGy (on 10/17/2021) Total: Dose given: 290 cGy Elapsed Days: 36 RT ILIAC NODE Most recent treatment: Dose given: 180 cGy (on 10/15/2021) Total: Dose given: 4,500 cGy Elapsed Days: 34 RtIliac Node CD Most recent treatment: Dose given: 145 cGy (on 10/17/2021) Total: Dose given: 290 cGy Elapsed Days: 36 No flowsheet data found. Subjective Note: PSA <0.064 down from 0.253 No constipation or diarrhea. Fatigue more. Urination ok and night sweats from hot flashes. Physical Exam: There were no vitals filed for this visit. Wt Readings from Last 3 Encounters: 10/15/21 89.7 kg (197 lb 11.2 oz) 10/15/21 88.9 kg (196 lb) 10/10/21 87.3 kg (192 lb 8 oz) ECOG Performance Status: (0) Fully active, able to carry on all predisease performance without restriction Bruising more on hands. Treatment Related Toxicity: Current Labs: Lab Results Component Value Date [...] Impression: Ken Mckeon is tolerating treatment well Plan: Reviewed treatment set up notes. Checked and approved portal images/CBCT. Reviewed dose delivery treatment parameters and deemed appropriate. After assessing the patient's response to treatment thus far, we will continue with radiation treatments as planned. Manuel White MD Radiation Oncology-[facility] (p) [phone] / (f) [phone] documented in this encounter Plan of Treatment Not on file documented as of this encounter Visit Diagnoses Diagnosis Prostate cancer (FORMERLY [facility]-CMS)- Primary Malignant neoplasm of prostate documented in this encounter Care Teams Attendant Arcade Relationship Specialty Start Date End Date Manuel White MD [address] [place] [phone] Radiation Oncology 09/24/21 Marcella Waller [address] [facility] [place] [address] Scoop Driver 09/24/21 documented as of this encounter
--- OUTSIDE RECORDS SUMMARY | 2024-07-09 11:00 | XMS_ITS | Encounter Summary ---
Author Organization [facility] Address [address] [place] [address] Care Team Providers Care Stretcher Helper Name Role Phone Manuel White MD Unavailable Marcella Waller Unavailable Encounter Details Date Type Department Care Team (Latest Contact Info) Description 2021 9:30 EST - 2021 23:59 EST Hospital Encounter [facility] Cancer Treatment [place] [address] [place] [address] Discharge Disposition: Home or Self Care Social [...] on filedocumented in this encounter Care Teams Stretcher Helper Relationship Specialty Start Date End Date Manuel White MD [address] [place] [phone] Radiation Oncology 09/24/21 Marcella Waller [address] [place] [address],[address] [place] [address] Bakery And Deli Sales Manager 09/24/21 documented as of this encounter
--- OUTSIDE RECORDS SUMMARY | 2024-07-09 11:00 | XMS_ITS | Encounter Summary ---
Author Organization [facility] Address [address] [place] [address] Care Team Providers Care Respiratory Technician Name Role Phone Manuel White MD Unavailable [phone] Marcella Waller Unavailable Encounter Details Date Type Department Care Team (Late st Contact Info) Description 10/11/2021 Results Only [facility] Radiation Oncology - [place] [address] [place], [place] [address] Unknown, Provider, Social History Tobacco Use Types [...] Comments RAD ONC ARIA SESSION SUMMARY Routine 10/11/2021 10:01 EDT documented in this encounter Results * RAD ONC ARIA SESSION SUMMARY (10/11/2021 10:01 EDT) Course ID C1 ARIA RADIATION ONCOLOGY Course First Treatment Date 09/11/2021 10:37 ARIA RADIATION ONCOLOGY Course Last Treatment Date 10/11/2021 10:01 ARIA RADIATION ONCOLOGY Course Elapsed Days 30 ARIA RADIATION ONCOLOGY Reference Point ID PELVIC NODES ARIA RADIATION ONCOLOGY Reference Point Dosage Given to Date 41.4 Gy ARIA RADIATION ONCOLOGY Reference Point Session Dosage Given 1.8 Gy ARIA RADIATION ONCOLOGY Reference Point ID PROST BED TOTAL ARIA RADIATION ONCOLOGY Reference Point Dosage Given to Date 46 Gy ARIA RADIATION ONCOLOGY Reference Point Session Dosage Given 2 Gy ARIA RADIATION ONCOLOGY Reference Point ID PROSTATE BED ARIA RADIATION ONCOLOGY Reference Point Dosage Given to Date [id number] 0001 Gy ARIA RADIATION ONCOLOGY Reference Point Session Dosage Given 2 Gy ARIA RADIATION ONCOLOGY Reference Point ID RT ILIAC NODE ARIA RADIATION ONCOLOGY Reference Point Dosage Given to Date 41.4 Gy ARIA RADIATION ONCOLOGY Reference Point Session Dosage Given 1.8 Gy ARIA RADIATION ONCOLOGY Plan ID [id number] ARIA RADIATION ONCOLOGY Plan Name [id number] ARIA RADIATION ONCOLOGY Plan Fractions Treated to Date 23 ARIA RADIATION ONCOLOGY Plan Total Fractions Prescribed 25 ARIA RADIATION ONCOLOGY Plan Prescribed Dose Per Fraction 2 Gy ARIA RADIATION ONCOLOGY Plan Total Prescribed Dose 5,000 cGy ARIA RADIATION ONCOLOGY Plan Primary Reference Point PROSTATE BED ARIA RADIATION ONCOLOGY 10/11/2021 10:0 1 EDT us Provider Unknown RADIATION ONCOLOGY ORDERABLE S Final Result ARIA RADIATION ONCOLOGY documented in this encounter Visit Diagnoses Not on filedocumented in this encounter Care Teams Respiratory Technician Relationship Specialty Start Date End Date Manuel White MD [address] [place] [phone] Radiation Oncology 09/24/21 Marcella Waller [address] [place] [address] Cigar Making Machine Operator 09/24/21 documented as of this encounter
--- OUTSIDE RECORDS SUMMARY | 2024-07-09 11:00 | XMS_ITS | Encounter Summary ---
Author Organization [facility] Address [address] [place] [address] Care Team Providers Care Plant Guard Name Role Phone Manuel White MD Unavailable [phone] Marcella Waller Unavailable Encounter Details Date Type Department Care Team (Late st Contact Info) Description 10/12/2021 Results Only [facility] Radiation Oncology - [facility] [address] [place], [place] [address] Unknown, Provider, Social History Tobacco Use Types [...] Comments RAD ONC ARIA SESSION SUMMARY Routine 10/12/2021 10:07 EDT documented in this encounter Results * RAD ONC ARIA SESSION SUMMARY (10/12/2021 10:07 EDT) Course ID C1 ARIA RADIATION ONCOLOGY Course First Treatment Date 09/11/2021 10:37 ARIA RADIATION ONCOLOGY Course Last Treatment Date 10/12/2021 10:07 ARIA RADIATION ONCOLOGY Course Elapsed Days 31 ARIA RADIATION ONCOLOGY Reference Point ID PELVIC NODES ARIA RADIATION ONCOLOGY Reference Point Dosage Given to Date 43.2 Gy ARIA RADIATION ONCOLOGY Reference Point Session Dosage Given 1.8 Gy ARIA RADIATION ONCOLOGY Reference Point ID PROST BED TOTAL ARIA RADIATION ONCOLOGY Reference Point Dosage Given to Date [id number] 0001 Gy ARIA RADIATION ONCOLOGY Reference Point Session Dosage Given 2 Gy ARIA RADIATION ONCOLOGY Reference Point ID PROSTATE BED ARIA RADIATION ONCOLOGY Reference Point Dosage Given to Date 48 Gy ARIA RADIATION ONCOLOGY Reference Point Session Dosage Given 2 Gy ARIA RADIATION ONCOLOGY Reference Point ID RT ILIAC NODE ARIA RADIATION ONCOLOGY Reference Point Dosage Given to Date 43.2 Gy ARIA RADIATION ONCOLOGY Reference Point Session Dosage Given 1.8 Gy ARIA RADIATION ONCOLOGY Plan ID [id number] ARIA RADIATION ONCOLOGY Plan Name [id number] ARIA RADIATION ONCOLOGY Plan Fractions Treated to Date 24 ARIA RADIATION ONCOLOGY Plan Total Fractions Prescribed 25 ARIA RADIATION ONCOLOGY Plan Prescribed Dose Per Fraction 2 Gy ARIA RADIATION ONCOLOGY Plan Total Prescribed Dose 5,000 cGy ARIA RADIATION ONCOLOGY Plan Primary Reference Point PROSTATE BED ARIA RADIATION ONCOLOGY 10/12/2021 10:0 7 EDT us Provider Unknown RADIATION ONCOLOGY ORDERABLE S Final Result ARIA RADIATION ONCOLOGY documented in this encounter Visit Diagnoses Not on filedocumented in this encounter Care Teams Plant Guard Relationship Specialty Start Date End Date Manuel White MD [address] [place] [phone] Radiation Oncology 09/24/21 Marcella Waller [address] [place] [address] Stock Checker 09/24/21 documented as of this encounter
--- OUTSIDE RECORDS SUMMARY | 2024-07-09 11:00 | XMS_ITS | Encounter Summary ---
Author Organization [facility] Address [address] [place] [address] Care Team Providers Care Conveyor Mechanic Name Role Phone Manuel White MD Unavailable [phone] Marcella Waller Unavailable Encounter Details Date Type Department Care Team (Late st Contact Info) Description 10/05/2021 Results Only [facility] Radiation Oncology - [facility] [address] [place], [place] [address] Unknown, Provider, Social History Tobacco Use Types [...] Comments RAD ONC ARIA SESSION SUMMARY Routine 10/05/2021 9:46 EST documented in this encounter Results * RAD ONC ARIA SESSION SUMMARY (10/05/2021 9:46 EST) Course ID C1 ARIA RADIATION ONCOLOGY Course First Treatment Date 09/11/2021 10:37 ARIA RADIATION ONCOLOGY Course Last Treatment Date 10/05/2021 9:46 ARIA RADIATION ONCOLOGY Course Elapsed Days 24 ARIA RADIATION ONCOLOGY Reference Point ID PELVIC NODES ARIA RADIATION ONCOLOGY Reference Point Dosage Given to Date 34.2 Gy ARIA RADIATION ONCOLOGY Reference Point Session Dosage Given 1.8 Gy ARIA RADIATION ONCOLOGY Reference Point ID PROST BED TOTAL ARIA RADIATION ONCOLOGY Reference Point Dosage Given to Date 38 Gy ARIA RADIATION ONCOLOGY Reference Point Session Dosage Given 2 Gy ARIA RADIATION ONCOLOGY Reference Point ID PROSTATE BED ARIA RADIATION ONCOLOGY Reference Point Dosage Given to Date 38 Gy ARIA RADIATION ONCOLOGY Reference Point Session Dosage Given 2 Gy ARIA RADIATION ONCOLOGY Reference Point ID RT ILIAC NODE ARIA RADIATION ONCOLOGY Reference Point Dosage Given to Date 34.2 Gy ARIA RADIATION ONCOLOGY Reference Point Session Dosage Given 1.8 Gy ARIA RADIATION ONCOLOGY Plan ID [id number] ARIA RADIATION ONCOLOGY Plan Name [id number] ARIA RADIATION ONCOLOGY Plan Fractions Treated to Date 19 ARIA RADIATION ONCOLOGY Plan Total Fractions Prescribed 25 ARIA RADIATION ONCOLOGY Plan Prescribed Dose Per Fraction 2 Gy ARIA RADIATION ONCOLOGY Plan Total Prescribed Dose 5,000 cGy ARIA RADIATION ONCOLOGY Plan Primary Reference Point PROSTATE BED ARIA RADIATION ONCOLOGY 10/05/2021 9:46 EST us Provider Unknown RADIATION ONCOLOGY ORDERABLE S Final Result Performing Organization Address City/State/[facility] Co de Phone Number ARIA RADIATION ONCOLOGY documented in this encounter Visit Diagnoses Not on filedocumented in this encounter Care Teams Conveyor Mechanic Relationship Specialty Start Date End Date Manuel White MD [address] [place] [phone] Radiation Oncology 09/24/21 Marcella Waller [address] [place] [address] Manager Landscape 09/24/21 documented as of this encounter
--- OUTSIDE RECORDS SUMMARY | 2024-07-09 11:00 | XMS_ITS | Encounter Summary ---
Author Organization [facility] Address [address] [place] [address] Care Team Providers Care Translator And Interpreter Name Role Phone Manuel White MD Unavailable [phone] Marcella Waller Unavailable Reason for Visit * Reason Comments Prostate Cancer Encounter Details Date Type Department Care Team (Late st Contact Info) Description 10/10/2021 Radiation Therapy Visit [facility] Cancer Treatment [place] [address] [place] [address] Manuel White MD [address] [facility] [address] [place] [address] Prostate cancer (HCC-CMS) (HCC) (HCC-CMS) [...] Progress Notes * Manuel White MD - 10/10/2021 1010 EDT Images from the original note were not included. Radiation Oncology- On Treatment Visit On Treatment Visit Assessment:10/10/21 Ken Mckeon is currently receiving radiation therapy treatment and is being seen today for his weekly on treatment visit. Encounter Diagnosis: ICD-10-CM ICD-9-CM 1. Prostate cancer (HCC-CMS) (HCC) C61 185 Radiation Therapy Dose: 4400 cGy Radiation Treatments Active Plans [id number] Most recent treatment: Dose planned: 200 cGy (fraction 22 on 10/10/2021) Total: Dose planned: 5,000 cGy (25 fractions) Elapsed Days: 29 Reference Points PELVIC NODES Most recent treatment: Dose given: 180 cGy (on 10/10/2021) Total: Dose given: 3,960 cGy Elapsed Days: 29 PROST BED TOTAL Most recent treatment: Dose given: 200 cGy (on 10/10/2021) Total: Dose given: 4,400 cGy Elapsed Days: 29 PROSTATE BED Most recent treatment: Dose given: 200 cGy (on 10/10/2021) Total: Dose given: 4,400 cGy Elapsed Days: 29 RT ILIAC NODE Most recent treatment: Dose given: 180 cGy (on 10/10/2021) Total: Dose given: 3,960 cGy Elapsed Days: 29 No flowsheet data found. Subjective Note: Noting some bruising (back of hand) and constipation. Urine flow OK and nocturia x 1. Physical Exam: There were no vitals filed for this visit. Wt Readings from Last 3 Encounters: 10/01/21 87.9 kg (193 lb 12.8 oz) 09/27/21 87.5 kg (193 lb) 09/25/21 87.9 kg (193 lb 12.8 oz) ECOG Performance Status: (0) Fully active, able to carry on all predisease performance without restriction Appears well Treatment Related Toxicity: 0 Current Labs: Lab Results Component Value Date WBC 5.27 09/27/2021 HGB 13.2 (L) 09/27/2021 HCT 37.9 (L) 09/27/2021 PLT 136 (L) 09/27/2021 ALT 44 09/27/2021 AST 42 09/27/2021 NA 137 09/27/2021 K 4.1 09/27/2021 CL 102 09/27/2021 CREATININE 0.95 09/27/2021 BUN 21 09/27/2021 CO2 28 09/27/2021 Medication Reconciliation: Medications were reviewed with the patient. Impression: Ken Mckeon is tolerating treatment well. Platelet count 150K Will check PSA with next lab work Plan: Reviewed treatment set up notes. Checked and approved portal images/CBCT. Reviewed dose delivery treatment parameters and deemed appropriate. After assessing the patient's response to treatment thus far, we will continue with radiation treatments as planned. Manuel White MD Radiation Oncology-[facility] (p) [phone] / (f) [phone] documented in this encounter Plan of Treatment Not on file documented as of this encounter Results * PSA TOTAL, DIAGNOSTIC (10/15/2021 9:05 EDT) PSA <0.064 <=4.000 ng/mL 10/15/2021 13:42 EDT [facility] Blood VENOUS BLOOD / Unknown Venipuncture / Unknown 10/15/2021 9:05 EDT 10/15/2021 9:05 EDT Narrative [facility] - 10/15/2021 13:42 EDT NOTE: Serum PSA concentration should not be interpreted as absolute evidence for the presence or absence of malignant disease. Assayed on [employer] MOD 5600 using chemiluminescent technology.??Values obtained by using different assay methods cannot be used interchangeably. ?? us Manuel White MD CHEMISTRY & BLOOD GAS ORD ERABLES Final Result [facility] [address] [place] [address] documented in this encounter Visit Diagnoses Diagnosis Prostate cancer (HCC-CMS)- Primary Malignant neoplasm of prostate documented in this encounter Care Teams Translator And Interpreter Relationship Specialty Start Date End Date Manuel White MD [address] [place] [phone] Radiation Oncology 09/24/21 Marcella Waller [address] [place] [address] Auto Body Builder Apprentice 09/24/21 documented as of this encounter
--- OUTSIDE RECORDS SUMMARY | 2024-07-09 11:00 | XMS_ITS | Encounter Summary ---
Author Organization [facility] Address [address] [place] [address] Care Team Providers Care Track Helper Name Role Phone Manuel White MD Unavailable [phone] Marcella Waller Unavailable Reason for Visit * Reason Comments Follow-up OTV Encounter Details Date Type Department Care Team (Late st Contact Info) Description 10/10/2021 Documentation Visit [facility] Cancer Treatment [place] [address] [place] [address] Nga Grajeda, AGNIESZKA Social History Tobacco Use Types Packs/Day [...] documented in this encounter Progress Notes * Nga Grajeda RN - 10/10/2021 1022 EDT Ken here for OTV and weekly visit with Dr White. He reports that he is beginning to feel the affects of fatigue with XRT. Reports getting through the day but going to bed earlier than prior. No change in quality of sleep. Did get out for walk earlier this morning.Eating/drinking okay - reports concern with recent bruising - wonders if XRt related? Reviewed w/ Dr White - most likely r/t prenisone - reviewed most recent bloodwork - having repeat labs done by med/onc coming up. Gregg reports bowels moving better - less constipated. No urinary c/o - is getting up once, sometimes twice per night to urinate. documented in this encounter Plan of Treatment Not on file documented as of this encounter Visit Diagnoses Not on filedocumented in this encounter Care Teams Track Helper Relationship Specialty Start Date End Date Manuel White MD [address] [place] [phone] Radiation Oncology 09/24/21 Marcella Waller [address] [place] [address] [place] 09/24/21 documented as of this encounter
--- OUTSIDE RECORDS SUMMARY | 2024-07-09 11:00 | XMS_ITS | Encounter Summary ---
Author Organization [facility] Address [address] [place] [address] Care Team Providers Care Cath Lab Tech Name Role Phone Manuel White MD Unavailable [phone] Marcella Waller Unavailable Encounter Details Date Type Department Care Team (Latest Contact Info) Description 10/08/2021 9:45 EDT - 10/08/2021 23:[address] [facility] Cancer Treatment [place] [address] [place] [address] Discharge Disposition: Home or Self Care Social [...] on filedocumented in this encounter Care Teams Cath Lab Tech Relationship Specialty Start Date End Date Manuel White MD [address] [place] [phone] Radiation Oncology 09/24/[address] [place] [address] Poultry Grader 09/24/21 documented as of this encounter
--- OUTSIDE RECORDS SUMMARY | 2024-07-09 11:00 | XMS_ITS | Encounter Summary ---
Author Organization [facility] Address [address] [place] [address] Care Team Providers Care City Distribution Clerk Name Role Phone Manuel White MD Unavailable [phone] Marcella Waller Unavailable Encounter Details Date Type Department Care Team (Latest Contact Info) Description 10/18/2021 9:45 EDT - 10/18/2021 23:59 EDT Hospital Encounter [facility] Cancer Treatment [place] [address] [place] [address] Discharge Disposition: Home or Self Care Social [...] on filedocumented in this encounter Care Teams City Distribution Clerk Relationship Specialty Start Date End Date Manuel White MD [address] [place] [phone] Radiation Oncology 09/24/[address] [place] [address] Puzzle Assembler 09/24/21 documented as of this encounter
--- OUTSIDE RECORDS SUMMARY | 2024-07-09 11:00 | XMS_ITS | Encounter Summary ---
Author Organization [facility] Address [address] [place] [address] Care Team Providers Care Traffic Rate Clerk Name Role Phone Manuel White MD Unavailable [phone] Marcella Waller Unavailable Reason for Visit * Reason Comments Follow-up OTV Encounter Details Date Type Department Care Team (Late st Contact Info) Description 10/15/2021 Documentation Visit [facility] Cancer Treatment [place] [address] [place] [address] Nga Grajeda, AGNIESZKA Social History Tobacco Use [...] Progress Notes * Nga Grajeda RN - 10/15/2021 1004 EDT Gregg here for OTV - receiving XRT for prostate cancer. Gregg denies any urinary c/o - gets up once to twice nightly to urinate. Reports some diarrhea but managed okay. He does report a 'different diet' on the week- ends vs during the week. Fatigue continues - not worse - does not nap during the day - simply going to bed a little earlier in the evening. He reports some bruising today - on his hand area where the acupuncture needle was. Last week had been reviewed with pt by Dr White that likely r/t prednison. Jay to continue to watch and will report any incrase/changes in bruising he experiences. 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 documented in this encounter Plan of Treatment Not on file documented as of this encounter Visit Diagnoses Not on filedocumented in this encounter Care Teams Traffic Rate Clerk Relationship Specialty Start Date End Date Manuel White MD [address] [place] [phone] Radiation Oncology 09/24/21 Marcella Waller ,[address] [place] [address] Candle Wrapper 09/24/21 documented as of this encounter
--- OUTSIDE RECORDS SUMMARY | 2024-07-09 11:00 | XMS_ITS | Encounter Summary ---
Author Organization [facility] Address [address] [place] [address] Care Team Providers Care Patternmaker All Around Name Role Phone Manuel White MD Unavailable [phone] Marcella Waller Unavailable Reason for Visit * Reason Onset Date Comments Other 10/19/2021 Encounter Details Date Type Department Care Team (Late st Contact Info) Description 10/19/2021 Telephone [facility] Adult Hematology & Oncology [address] [place] [address] Scarlet Oates, RN Other Social History Tobacco Use Types Packs/Day [...] Telephone Encounter - Scarlet Oates RN - 10/19/2021 2695 EDT Called [employer] with instructions to increase the amount of tabs from 30 to 120 per . * Telephone Encounter - Scarlet Oates RN - 10/19/2021 1122 EDT Received call from [email or web address] @ [email or web address]. Need clarification of Abiraterone 250 mg tablet script, Take 4 tablets PO Daily, # 30 tablets. Questioning if the quantity of #30 tablets should be increased or if the 4 tablets daily should be decreased. Dr. Espino - Please clarify. Will call [email or web address] @ [email or web address] with clarification. documented in this encounter Plan of Treatment Not on file documented as of this encounter Visit Diagnoses Not on filedocumented in this encounter Care Teams Patternmaker All Around Relationship Specialty Start Date End Date Manuel White MD [address] [place] [phone] Radiation Oncology 09/24/21 Marcella Waller [facility] [place] [address] Hospice Consultant 09/24/21 documented as of this encounter
--- OUTSIDE RECORDS SUMMARY | 2024-07-09 11:00 | XMS_ITS | Encounter Summary ---
Author Organization [facility] Address [address] [place] [address] Care Team Providers Care Aeronautical Engineering Technologist Name Role Phone Manuel White MD Unavailable [phone] Marcella Waller Unavailable Encounter Details Date Type Department Care Team (Latest Contact Info) Description 10/05/2021 9:30 EST - 10/05/2021 23:59 EST Hospital Encounter [facility] Cancer Treatment [place] [address] [place] [address] Discharge Disposition: Home or Self Care Social [...] on filedocumented in this encounter Care Teams Aeronautical Engineering Technologist Relationship Specialty Start Date End Date Manuel White MD [address] [place] [phone] Radiation Oncology 09/24/21 Marcella Waller [address] [place] [address],[address] [place] [address] Activity Therapy Teacher 09/24/21 documented as of this encounter
--- OUTSIDE RECORDS SUMMARY | 2024-07-09 11:00 | XMS_ITS | Encounter Summary ---
Author Organization [facility] Address [address] [place] [address] Care Team Providers Care Warping Machine Operator Name Role Phone Manuel White MD Unavailable [phone] Marcella Waller Unavailable Encounter Details Date Type Department Care Team (Late st Contact Info) Description 2021 Results Only [facility] Radiation Oncology - [facility] [address] [place], [place] [id number] Unknown, Provider, Social History Tobacco Use Types [...] Comments RAD ONC ARIA SESSION SUMMARY Routine 2021 9:47 EST documented in this encounter Results * RAD ONC ARIA SESSION SUMMARY (2021 9:47 EST) Course ID C1 ARIA RADIATION ONCOLOGY Course First Treatment Date 09/11/2021 10:37 [facility] RADIATION ONCOLOGY Course Last Treatment Date 2021 9:48 [facility] RADIATION ONCOLOGY Course Elapsed Days 23 [facility] RADIATION ONCOLOGY Reference Point ID PELVIC NODES [facility] RADIATION ONCOLOGY Reference Point Dosage Given to Date 32.4 Gy [facility] RADIATION ONCOLOGY Reference Point Session Dosage Given 1.8 Gy [facility] RADIATION ONCOLOGY Reference Point ID PROST BED TOTAL [facility] RADIATION ONCOLOGY Reference Point Dosage Given to Date 36 Gy [facility]A RADIATION ONCOLOGY Reference Point Session Dosage Given 2 Gy ARIA RADIATION ONCOLOGY Reference Point ID PROSTATE BED ARIA RADIATION ONCOLOGY Reference Point Dosage Given to Date 36 Gy ARIA RADIATION ONCOLOGY Reference Point Session Dosage Given 2 Gy ARIA RADIATION ONCOLOGY Reference Point ID RT ILIAC NODE [facility] RADIATION ONCOLOGY Reference Point Dosage Given to Date 32.4 Gy ARIA RADIATION ONCOLOGY Reference Point Session Dosage Given 1.8 Gy ARIA RADIATION ONCOLOGY Plan ID [id number] [facility] RADIATION ONCOLOGY Plan Name [id number] [facility] RADIATION ONCOLOGY Plan Fractions Treated to Date 18 [facility]A RADIATION ONCOLOGY Plan Total Fractions Prescribed 25 ARIA RADIATION ONCOLOGY Plan Prescribed Dose Per Fraction 2 Gy ARIA RADIATION ONCOLOGY Plan Total Prescribed Dose 5,000 cGy ARIA RADIATION ONCOLOGY Plan Primary Reference Point PROSTATE BED ARIA RADIATION ONCOLOGY 2021 9:47 EST us Provider Unknown RADIATION ONCOLOGY ORDERABLE S Final Result Performing Organization Address City/State/[facility] Co de Phone Number [facility] RADIATION ONCOLOGY documented in this encounter Visit Diagnoses Not on filedocumented in this encounter Care Teams Warping Machine Operator Relationship Specialty Start Date End Date Manuel White MD [address] [place] [phone] Radiation Oncology 09/24/21 Marcella Waller [address] [place] [address] Hall Porter 09/24/21 documented as of this encounter
--- OUTSIDE RECORDS SUMMARY | 2024-07-09 11:00 | XMS_ITS | Encounter Summary ---
Author Organization [facility] Address [address] [place] [address] Care Team Providers Care Ecommerce Merchandising Manager Name Role Phone Manuel White MD Unavailable [phone] Marcella Waller Unavailable Encounter Details Date Type Department Care Team (Latest Contact Info) Description 10/17/2021 9:45 EDT - 10/17/2021 23:[address] [facility] Cancer Treatment [place] [address] [place] [address] Discharge Disposition: Home or Self Care Social [...] on filedocumented in this encounter Care Teams Ecommerce Merchandising Manager Relationship Specialty Start Date End Date Manuel White MD [address] [place] [phone] Radiation Oncology 09/24/[address] [place] [address] Volleyball Player 09/24/21 documented as of this encounter
--- OUTSIDE RECORDS SUMMARY | 2024-07-09 11:00 | XMS_ITS | Encounter Summary ---
Author Organization [facility] Address [address] [place] [address] Care Team Providers Care Assembler Metal Building Name Role Phone Manuel White MD Unavailable [phone] Marcella Waller Unavailable Reason for Visit * Reason Comments Follow-up OTV Encounter Details Date Type Department Care Team (Latest Contact Info) Description 10/15/2021 9:44 EDT - 10/15/2021 13:01 EDT Hospital Encounter [facility] [place] [address] Discharge Disposition: Home or Self Care Social [...] Sign Reading Time Taken Comments Blood Pressure 153/73 10/15/2021 1002 EDT Pulse 63 10/15/2021 1002 EDT Temperature - - Respiratory Rate - - Oxygen Saturation - - Inhaled Oxygen Concentration - - Weight 89.7 kg (197 lb 11.2 oz) 10/15/2021 1002 EDT Height - - Body Mass Index 27.97 03/29/2016 0847 EDT documented in this encounter [...] on filedocumented in this encounter Care Teams Assembler Metal Building Relationship Specialty Start Date End Date Manuel White MD [address] [place] [phone] Radiation Oncology 09/24/21 Marcella Waller [address] [place] [address],[address] [place] [address] Manager Branch 09/24/21 documented as of this encounter
--- OUTSIDE RECORDS SUMMARY | 2024-07-09 11:00 | XMS_ITS | Encounter Summary ---
Author Organization [facility] Address [address] [place] [address] Care Team Providers Care Reinforced Steel Placing Supervisor Name Role Phone Manuel White MD Unavailable [phone] Marcella Waller Unavailable Encounter Details Date Type Department Care Team (Late st Contact Info) Description 10/09/2021 Results Only [facility] Radiation Oncology - [facility] [address] [place], [place] [address] Unknown, Provider, Social History Tobacco Use Types [...] Comments RAD ONC ARIA SESSION SUMMARY Routine 10/09/2021 10:07 EDT documented in this encounter Results * RAD ONC ARIA SESSION SUMMARY (10/09/2021 10:07 EDT) Course ID C1 ARIA RADIATION ONCOLOGY Course First Treatment Date 09/11/2021 10:37 [facility] RADIATION ONCOLOGY Course Last Treatment Date 10/09/2021 10:08 [facility]A RADIATION ONCOLOGY Course Elapsed Days 28 [facility] RADIATION ONCOLOGY Reference Point ID PELVIC NODES [facility] RADIATION ONCOLOGY Reference Point Dosage Given to Date 37.8 Gy [facility] RADIATION ONCOLOGY Reference Point Session Dosage Given 1.8 Gy [facility] RADIATION ONCOLOGY Reference Point ID PROST BED TOTAL [facility] RADIATION ONCOLOGY Reference Point Dosage Given to Date 42 Gy [facility] RADIATION ONCOLOGY Reference Point Session Dosage Given 2 Gy [facility]A RADIATION ONCOLOGY Reference Point ID PROSTATE BED [facility] RADIATION ONCOLOGY Reference Point Dosage Given to Date 42 Gy ARIA RADIATION ONCOLOGY Reference Point Session Dosage Given 2 Gy ARIA RADIATION ONCOLOGY Reference Point ID RT ILIAC NODE [facility] RADIATION ONCOLOGY Reference Point Dosage Given to Date 37.8 Gy ARIA RADIATION ONCOLOGY Reference Point Session Dosage Given 1.8 Gy ARIA RADIATION ONCOLOGY Plan ID [id number] [facility]A RADIATION ONCOLOGY Plan Name [id number] ARIA RADIATION ONCOLOGY Plan Fractions Treated to Date 21 ARIA RADIATION ONCOLOGY Plan Total Fractions Prescribed 25 ARIA RADIATION ONCOLOGY Plan Prescribed Dose Per Fraction 2 Gy ARIA RADIATION ONCOLOGY Plan Total Prescribed Dose 5,000 cGy ARIA RADIATION ONCOLOGY Plan Primary Reference Point PROSTATE BED ARIA RADIATION ONCOLOGY 10/09/2021 10:0 7 EDT us Provider Unknown RADIATION ONCOLOGY ORDERABLE S Final Result [facility]A RADIATION ONCOLOGY documented in this encounter Visit Diagnoses Not on filedocumented in this encounter Care Teams Reinforced Steel Placing Supervisor Relationship Specialty Start Date End Date Manuel White MD [address] [place] [phone] Radiation Oncology 09/24/21 Marcella Waller [address] [place] [address] Experimental Rocket Sled Mechanic 09/24/21 documented as of this encounter
--- OUTSIDE RECORDS SUMMARY | 2024-07-09 11:00 | XMS_ITS | Encounter Summary ---
Author Organization [facility] Address [address] [place] [address] Care Team Providers Care Exchange Underwriting Consultant Name Role Phone Manuel White MD Unavailable [phone] Marcella Waller Unavailable Encounter Details Date Type Department Care Team (Latest Contact Info) Description 10/16/2021 9:45 EDT - 10/16/2021 23:59 EDT Hospital Encounter [facility] Cancer Treatment [place] [address] [place] [address] Discharge Disposition: Home or Self Care Social [...] on filedocumented in this encounter Care Teams Exchange Underwriting Consultant Relationship Specialty Start Date End Date Manuel White MD [address] [place] [phone] Radiation Oncology 09/24/[address] [place] [address] Cake Wringer 09/24/21 documented as of this encounter
--- OUTSIDE RECORDS SUMMARY | 2024-07-09 11:00 | XMS_ITS | Encounter Summary ---
Author Organization [facility] Address [address] [place] [address] Care Team Providers Care Dental Appliance Repairer Name Role Phone Manuel White MD Unavailable [phone] Marcella Waller Unavailable Encounter Details Date Type Department Care Team (Latest Contact Info) Description 10/19/2021 9:45 EDT - 10/19/2021 23:59 EDT Hospital Encounter [facility] Cancer Treatment [place] [address] [place] [address] Discharge Disposition: Home or Self Care Social [...] filedocumented in this encounter Care Teams Dental Appliance Repairer Relationship Specialty Start Date End Date Manuel White MD [address] [place] [phone] Radiation Oncology 09/24/[address] [place] [address] Shank Threader 09/24/21 documented as of this encounter
--- OUTSIDE RECORDS SUMMARY | 2024-07-09 11:00 | XMS_ITS | Encounter Summary ---
Author Organization [facility] Address [address] [place] [address] Care Team Providers Care Plc Programmer Name Role Phone Manuel White MD Unavailable [phone] Marcella Waller Unavailable Encounter Details Date Type Department Care Team (Latest Contact Info) Description 10/09/2021 9:45 EDT - 10/09/2021 23:59 EDT Hospital Encounter [facility] Cancer Treatment [place] [address] [place] [address] Discharge Disposition: Home or Self Care Social [...] on filedocumented in this encounter Care Teams Plc Programmer Relationship Specialty Start Date End Date Manuel White MD [address] [place] [phone] Radiation Oncology 09/24/[address] [place] [address] Poll Clerk 09/24/21 documented as of this encounter
--- OUTSIDE RECORDS SUMMARY | 2024-07-09 11:00 | XMS_ITS | Encounter Summary ---
Author Organization [facility] Address [address] [place] [address] Care Team Providers Care Bracelet Former Name Role Phone Manuel White MD Unavailable [phone] Marcella Waller Unavailable Encounter Details Date Type Department Care Team (Latest Contact Info) Description 10/15/2021 13:02 EDT - 10/15/2021 23:59 EDT Hospital Encounter [facility] Cancer Treatment [place] [address] [place] [address] Discharge Disposition: Home or Self Care Social [...] on filedocumented in this encounter Care Teams Bracelet Former Relationship Specialty Start Date End Date Manuel White MD [address] [place] [phone] Radiation Oncology 09/24/[address] [place] [address] Correctional Sergeant 09/24/21 documented as of this encounter
--- OUTSIDE RECORDS SUMMARY | 2024-07-09 11:00 | XMS_ITS | Encounter Summary ---
Author Organization [facility] Address [address] [place] [address] Care Team Providers Care Entrepreneur Name Role Phone Manuel White MD Unavailable [phone] Marcella Waller Unavailable Encounter Details Date Type Department Care Team (Latest Contact Info) Description 10/10/2021 9:45 EDT - 10/10/2021 23:59 EDT Hospital Encounter [facility] [place] Cancer Treatment [place] [address] [place] [address] Discharge Disposition: Home or Self Care Social [...] Sign Reading Time Taken Comments Blood Pressure 130/70 10/10/2021 1010 EDT Pulse 68 10/10/2021 1010 EDT Temperature - - Respiratory Rate - - Oxygen Saturation - - Inhaled Oxygen Concentration - - Weight 87.3 kg (192 lb 8 oz) 10/10/2021 1010 EDT Height - - Body Mass Index 27.23 03/29/2016 0847 EDT documented in this encounter [...] on filedocumented in this encounter Care Teams Entrepreneur Relationship Specialty Start Date End Date Manuel White MD [address] [place] [phone] Radiation Oncology 09/24/21 Marcella Waller [address] [place] [address],[address] [place] [address] Professor Of Legal Studies 09/24/21 documented as of this encounter
--- OUTSIDE RECORDS SUMMARY | 2024-07-09 11:00 | XMS_ITS | Encounter Summary ---
Author Organization [facility] Address [address] [place] [address] Care Team Providers Care Classification Control Clerk Name Role Phone Manuel White MD Unavailable [phone] Marcella Waller Unavailable Encounter Details Date Type Department Care Team (Latest Contact Info) Description 10/23/2021 9:45 EDT - 10/23/2021 23:59 EDT Hospital Encounter [facility] Cancer Treatment [place] [address] [place] [address] Discharge Disposition: Home or Self Care Social [...] on filedocumented in this encounter Care Teams Classification Control Clerk Relationship Specialty Start Date End Date Manuel White MD [address] [place] [phone] Radiation Oncology 09/24/[address] [place] [address] Opal Miner 09/24/21 documented as of this encounter
--- OUTSIDE RECORDS SUMMARY | 2024-07-09 11:00 | XMS_ITS | Encounter Summary ---
Author Organization [facility] Address [address] [place] [address] Care Team Providers Care Drone Operator Name Role Phone Manuel White MD Unavailable [phone] Marcella Waller Unavailable Encounter Details Date Type Department Care Team (Late st Contact Info) Description 10/22/2021 Results Only [facility] Radiation Oncology - [facility] [address] [place], [place] [address] Unknown, Provider, Social History Tobacco Use Types [...] Comments RAD ONC ARIA SESSION SUMMARY Routine 10/22/2021 9:58 EDT documented in this encounter Results * RAD ONC ARIA SESSION SUMMARY (10/22/2021 9:58 EDT) Course ID C1 ARIA RADIATION ONCOLOGY Course First Treatment Date 09/11/2021 10:37 [facility]A RADIATION ONCOLOGY Course Last Treatment Date 10/22/2021 9:58 ARIA RADIATION ONCOLOGY Course Elapsed Days 41 [facility]A RADIATION ONCOLOGY Reference Point ID PROST BED TOTAL ARIA RADIATION ONCOLOGY Reference Point Dosage Given to Date [id number] Gy ARIA RADIATION ONCOLOGY Reference Point Session Dosage Given 2 Gy [facility]A RADIATION ONCOLOGY Reference Point ID ProstateBed CD ARIA RADIATION ONCOLOGY Reference Point Dosage Given to Date 10 Gy ARIA RADIATION ONCOLOGY Reference Point Session Dosage Given 2 Gy ARIA RADIATION ONCOLOGY Reference Point ID R IliacNodeTOTAL ARIA RADIATION ONCOLOGY Reference Point Dosage Given to Date 7.25 Gy ARIA RADIATION ONCOLOGY Reference Point Session Dosage Given 1.45 Gy ARIA RADIATION ONCOLOGY Reference Point ID RtIliac Node CD ARIA RADIATION ONCOLOGY Reference Point Dosage Given to Date 7.25 Gy ARIA RADIATION ONCOLOGY Reference Point Session Dosage Given 1.45 Gy ARIA RADIATION ONCOLOGY Plan ID [id number] ARIA RADIATION ONCOLOGY Plan Name [id number] ARIA RADIATION ONCOLOGY Plan Fractions Treated to Date 5 [facility]A RADIATION ONCOLOGY Plan Total Fractions Prescribed 7 ARIA RADIATION ONCOLOGY Plan Prescribed Dose Per Fraction 2 Gy ARIA RADIATION ONCOLOGY Plan Total Prescribed Dose 1,400 cGy ARIA RADIATION ONCOLOGY Plan Primary Reference Point ProstateBed CD ARIA RADIATION ONCOLOGY 10/22/2021 9:58 EDT us Provider Unknown MD RADIATION ONCOLOGY ORDERABLE S Final Result [facility]A RADIATION ONCOLOGY documented in this encounter Visit Diagnoses Not on filedocumented in this encounter Care Teams Drone Operator Relationship Specialty Start Date End Date Manuel White MD [address] [place] [phone] Radiation Oncology 09/24/21 Marcella Waller [address] [place] [address] Syrup Maker Cook 09/24/21 documented as of this encounter
--- OUTSIDE RECORDS SUMMARY | 2024-07-09 11:00 | XMS_ITS | Encounter Summary ---
Author Organization [facility] Address [address] [place] [address] Care Team Providers Care Stitcher Around Name Role Phone Manuel White MD Unavailable [phone] Marcella Waller Unavailable Encounter Details Date Type Department Care Team (Late st Contact Info) Description 10/08/2021 Results Only [facility] Radiation Oncology - [facility] [address] [place], [place] [address] Unknown, Provider, Social History Tobacco Use Types [...] Comments RAD ONC ARIA SESSION SUMMARY Routine 10/08/2021 10:13 EDT documented in this encounter Results * RAD ONC ARIA SESSION SUMMARY (10/08/2021 10:13 EDT) Course ID C1 ARIA RADIATION ONCOLOGY Course First Treatment Date 09/11/2021 10:37 ARIA RADIATION ONCOLOGY Course Last Treatment Date 10/08/2021 10:13 ARIA RADIATION ONCOLOGY Course Elapsed Days 27 [facility] RADIATION ONCOLOGY Reference Point ID PELVIC NODES ARIA RADIATION ONCOLOGY Reference Point Dosage Given to Date 36 Gy [facility]A RADIATION ONCOLOGY Reference Point Session Dosage Given 1.8 Gy ARIA RADIATION ONCOLOGY Reference Point ID PROST BED TOTAL ARIA RADIATION ONCOLOGY Reference Point Dosage Given to Date 40 Gy ARIA RADIATION ONCOLOGY Reference Point Session Dosage Given 2 Gy ARIA RADIATION ONCOLOGY Reference Point ID PROSTATE BED ARIA RADIATION ONCOLOGY Reference Point Dosage Given to Date 40 Gy ARIA RADIATION ONCOLOGY Reference Point Session Dosage Given 2 Gy ARIA RADIATION ONCOLOGY Reference Point ID RT ILIAC NODE [facility]A RADIATION ONCOLOGY Reference Point Dosage Given to Date 36 Gy ARIA RADIATION ONCOLOGY Reference Point Session Dosage Given 1.8 Gy ARIA RADIATION ONCOLOGY Plan ID [id number] [facility]A RADIATION ONCOLOGY Plan Name [id number] ARIA RADIATION ONCOLOGY Plan Fractions Treated to Date 20 [facility]A RADIATION ONCOLOGY Plan Total Fractions Prescribed 25 [facility]A RADIATION ONCOLOGY Plan Prescribed Dose Per Fraction 2 Gy ARIA RADIATION ONCOLOGY Plan Total Prescribed Dose 5,000 cGy [facility]A RADIATION ONCOLOGY Plan Primary Reference Point PROSTATE BED [facility]A RADIATION ONCOLOGY 10/08/2021 10:1 3 EDT us Provider Unknown RADIATION ONCOLOGY ORDERABLE S Final Result Performing Organization Address City/State/[facility] Co de Phone Number [facility] RAD[facility]COLOG[facility] documented in this encounter Visit Diagnoses Not on filedocumented in this encounter Care Teams Stitcher Around Relationship Specialty Start Date End Date Manuel White MD [address] [place] [phone] Radiation Oncology 09/24/21 Marcella Waller [address] [place] [address] Labeling Associate 09/24/21 documented as of this encounter
--- OUTSIDE RECORDS SUMMARY | 2024-07-09 11:00 | XMS_ITS | Encounter Summary ---
Author Organization [facility] Address [address] [place] [address] Care Team Providers Care Case Operator Name Role Phone Manuel White MD Unavailable [phone] Marcella Waller Unavailable Encounter Details Date Type Department Care Team (Latest Contact Info) Description 10/22/2021 9:45 EDT - 10/22/2021 23:59 EDT Hospital Encounter [facility] [address] [place] [address] Discharge Disposition: Home or Self Care Social [...] Sign Reading Time Taken Comments Blood Pressure 137/80 10/22/2021 1011 EDT Pulse 66 10/22/2021 1011 EDT Temperature - - Respiratory Rate - - Oxygen Saturation - - Inhaled Oxygen Concentration - - Weight 88 kg (194 lb) 10/22/2021 1011 EDT Height - - Body Mass Index 27.44 03/29/2016 0847 EDT documented in this encounter [...] on filedocumented in this encounter Care Teams Case Operator Relationship Specialty Start Date End Date Manuel White MD [address] [place] [phone] Radiation Oncology 09/24/21 Marcella Waller [address] [facility] [place] [address] Exam Proctor 09/24/21 documented as of this encounter
--- OUTSIDE RECORDS SUMMARY | 2024-07-09 11:00 | XMS_ITS | Encounter Summary ---
Author Organization [facility] Address [address] [place] [address] Care Team Providers Care Butter Fat Tester Name Role Phone Manuel White MD Unavailable [phone] Marcella Waller Unavailable Encounter Details Date Type Department Care Team (Late st Contact Info) Description 10/19/2021 Results Only [facility] Radiation Oncology - [facility] [address] [place], [place] [phone] Unknown, Provider, Social History Tobacco Use Types [...] Comments RAD ONC ARIA SESSION SUMMARY Routine 10/19/2021 9:56 EDT documented in this encounter Results * RAD ONC ARIA SESSION SUMMARY (10/19/2021 9:56 EDT) Course ID C1 ARIA RADIATION ONCOLOGY Course First Treatment Date 09/11/2021 10:37 ARIA RADIATION ONCOLOGY Course Last Treatment Date 10/19/2021 9:56 ARIA RADIATION ONCOLOGY Course Elapsed Days 38 ARIA RADIATION ONCOLOGY Reference Point ID PROST BED TOTAL ARIA RADIATION ONCOLOGY Reference Point Dosage Given to Date 58 Gy ARIA RADIATION ONCOLOGY Reference Point Session Dosage Given 2 Gy ARIA RADIATION ONCOLOGY Reference Point ID ProstateBed CD ARIA RADIATION ONCOLOGY Reference Point Dosage Given to Date 8 Gy ARIA RADIATION ONCOLOGY Reference Point Session Dosage Given 2 Gy ARIA RADIATION ONCOLOGY Reference Point ID R IliacNodeTOTAL ARIA RADIATION ONCOLOGY Reference Point Dosage Given to Date 5.8 Gy ARIA RADIATION ONCOLOGY Reference Point Session Dosage Given 1.45 Gy ARIA RADIATION ONCOLOGY Reference Point ID RtIliac Node CD ARIA RADIATION ONCOLOGY Reference Point Dosage Given to Date 5.8 Gy ARIA RADIATION ONCOLOGY Reference Point Session Dosage Given 1.45 Gy ARIA RADIATION ONCOLOGY Plan ID [id number] ARIA RADIATION ONCOLOGY Plan Name [id number] ARIA RADIATION ONCOLOGY Plan Fractions Treated to Date 4 ARIA RADIATION ONCOLOGY Plan Total Fractions Prescribed 7 ARIA RADIATION ONCOLOGY Plan Prescribed Dose Per Fraction 2 Gy ARIA RADIATION ONCOLOGY Plan Total Prescribed Dose 1,400 cGy ARIA RADIATION ONCOLOGY Plan Primary Reference Point ProstateBed CD ARIA RADIATION ONCOLOGY 10/19/2021 9:56 EDT us Provider Unknown RADIATION ONCOLOGY ORDERABLE S Final Result ARIA RADIATION ONCOLOGY documented in this encounter Visit Diagnoses Not on filedocumented in this encounter Care Teams Butter Fat Tester Relationship Specialty Start Date End Date Manuel White MD [address] [place] [phone] Radiation Oncology 09/24/21 Marcella Waller [address] [place] [address] Interpreter Deaf 09/24/21 documented as of this encounter
--- OUTSIDE RECORDS SUMMARY | 2024-07-09 11:00 | XMS_ITS | Encounter Summary ---
Author Organization [facility] Address [address] [place] [address] Care Team Providers Care Natural Gas Plant Supervisor Name Role Phone Manuel White MD Unavailable [phone] Marcella Waller Unavailable Reason for Visit * Cardiology (Routine/Next Available) - Specialty Report Received Specialty Diagnoses / Procedures Referred By Duglas arizmendi Referred To Contact Diagnoses Palpitations Procedures ZIO Lindsay Saleem MD Phone: tel: fax: [facility] Referral ID Status Reason Start Date Expiration Date V isits Requested Visits Authorized [id number] Specialty Report Received 10/02/2021 1 1 Encounter Details Date Type Department Care Team (Late st Contact Info) Description 10/08/2021 10:30 EDT Ancillary Procedure [facility] [address] [place] [id number] Palpitations Social History Tobacco Use Types Packs/Day Years [...] HOLTER MONITOR (7 OR 14 DAY) Routine 10/08/2021 10:51 EDT Palpitations documented in this encounter Results * EXTENDED HOLTER - 14 DAY PLACED IN CLINIC (10/08/2021 10:51 EDT) Anatomical Region Laterality Modality Holter Narrative 10/22/2021 14:50 EDT ?? Rare bursts of paroxysmal supraventricular tachycardia, at times symptomatic 1. Analysis time 6 d 8 h 2. Average heart rate 68 bpm, range 47 - 156 bpm 3. <1% PVC's. No [place] 4. <1% PAC's. 20 episodes of SVT, longest 25 s with average rate of 118 bpm 5. Nocturnal sinus bradycardia. No critical pauses or higher degree heart block 6. 4 patient events. 2 evens correlated with SVT, 2 events with sinus rhythm Lindsay Espino MD CARDIAC SERVICES ORDERABLES F inal Result documented in this encounter Visit Diagnoses Diagnosis Palpitations documented in this encounter Care Teams Natural Gas Plant Supervisor Relationship Specialty Start Date End Date Manuel White MD [address] [place] [phone] Radiation Oncology 09/24/21 Marcella Waller [address] [place] [address] Surgical Services Asst 09/24/21 documented as of this encounter
--- OUTSIDE RECORDS SUMMARY | 2024-07-09 11:00 | XMS_ITS | Encounter Summary ---
Author Organization [facility] Address [address] [place] [address] Care Team Providers Care Electrotyper Helper Name Role Phone Manuel White MD Unavailable [phone] Marcella Waller Unavailable Reason for Visit * Reason Comments Chemotherapy And Provider Visit Encounter Details Date Type Department Care Team (Late st Contact Info) Description 10/15/2021 9:00 EDT Office Visit [facility] Hematology & Oncology [address] [place] [phone] [place] [id number] [facility] [place] [address] (Fax) Prostate cancer (HCC-CMS) (HCC) (HCC-CMS) (Primary Dx); Palpitations; Encounter for antineoplastic chemotherapy Social History Tobacco Use Types Packs/Day Years [...] Sign Reading Time Taken Comments Blood Pressure 128/78 10/15/2021 0900 EDT Pulse 66 10/15/2021 0900 EDT Temperature - - Respiratory Rate - - Oxygen Saturation 98% 10/15/2021 0900 EDT Inhaled Oxygen Concentration - - Weight 88.9 kg (196 lb) 10/15/2021 0900 EDT Height - - Body Mass Index [...] Progress Notes * Lindsay Espino MD - 10/15/2021 0900 EDT Images from the original note were not included. Hematology/Oncology Follow up Note Oncology History Prostate cancer ([facility]) ([facility]) 07/19/2006 Initial Diagnosis Prostate cancer 07/19/2006 Initial [...] at the [facility] showed Troy 4+5 involving 20 to 50% of 3 cores from the targeted lesion. There was an intraductal carcinoma component present. The remaining tissue was negative for malignancy. 02/08/2019 - Cancer Staged Staging form: Prostate, AJCC 8th Edition - Clinical stage from 02/08/2019: Stage IIIC (cT1c, cN0, cM0, PSA: 7.3, Grade Group: 5, 02/08/19, Troy: 4, +: 5) 02/22/2019 - Cancer Staged February 22, 2019: Nuclear medicine bone scan at [facility] showed no evidence of bony metastatic disease 05/18/2019 Surgery 05/18/2019 Surgery May 18, 2019: Radical prostatectomy with pathology reviewed at [facility] showed Troy 4+5 involving 10% of the prostate. There [...] raising concern for a metastatic deposit 07/12/2021 day MRI spine. No evidence of osseous metastasis in the lumbar spine with mild lumbar spondylosis. 09/11/2021 - 10/24/2021 Radiation Therapy -08/10/21: Lupron -Started radiation therapy. 09/12/2021 - Chemotherapy Abiraterone and prednisone. Interim History: Gregg returns for follow-up. He was on the Zio patch until last night. Had it on for 6 nights. Did experience a few episodes of palpitations while on the patch. C/o easy bruising. He noticed some bruising at the acupuncture sites and also at other sites which come and go. States that his bowel movements are altered and he is having more urinary frequency. He is scheduled to finish radiation treatments on 10/24/2021. Review of Systems Constitutional: Negative for chills, [...] mouth as needed for Sleep. Taking ??? cholecalciferol, vitamin D3, (VITAMIN D3 ORAL) Take 2,000 Int'l Units by mouth daily. Taking ??? leuprolide (ELIGARD, 3 MONTH,) 22.5 mg injection Inject 1 mg into the skin once. Taking ??? pravastatin (PRAVACHOL) 20 mg tablet Take 20 mg by mouth daily. Taking ??? predniSONE (DELTASONE) 5 mg tablet Take 1 Tablet by mouth daily for 90 days. 30 Tablet 0 Taking ??? senna (SENOKOT) 8.6 mg tablet Take 1 Tablet by mouth daily. Taking No current facility-administered medications for this visit. Vitals: 10/15/21 0900 BP: 128/78 Pulse: 66 SpO2: 98% Weight: 88.9 kg (196 lb) Wt Readings from Last 3 Encounters: 10/15/21 89.7 kg (197 lb 11.2 oz) 10/15/21 88.9 kg (196 lb) 10/10/21 87.3 kg (192 lb 8 oz) Performance Status: (0) Fully active, able to carry on all predisease performance without restriction Physical Exam Constitutional: He is oriented to person, place, and time. He is cooperative. HENT: Head: Normocephalic and atraumatic. Eyes: Conjunctivae and EOM are normal. Cardiovascular: Normal rate and regular rhythm. Pulmonary/Chest: Breath sounds normal. Abdominal: Soft. There is no abdominal tenderness. Lymphadenopathy: He has no cervical adenopathy. Neurological: He is alert and oriented to person, place, and time. Skin: Skin is warm and dry. Psychiatric: He has a normal mood and affect. ASSESSMENT: 75-year-old male who is s/p radical prostatectomy in April 2019 for diagnosis of localized prostate cancer with rising PSA and PET scan showing possible lymph node recurrence. ?? 1. Recurrent prostate cancer s/p radical prostatectomy. PSMA PET scan at [facility] showed mild FDG uptake particularly in the larger right external iliac lymph node concerning for metastasis. Given the lymph node recurrence and high decipher score, he was started on abiraterone along with ADT plus radiation. He has been tolerating the abiraterone relatively well. CBC reviewed from today. Hemoglobin stable around 13.2 and platelet count is 1 31,000 compared to 1 36,000. LFTs from previous visit were within normal limits. 2. Palpitations. Was on the Zio patch until last night. Follow-up on results. PLAN: 1. Continue abiraterone and prednisone. 2. Follow-up CMP. 3. Return for follow-up in 4 weeks. Other Orders Placed This Visit Procedures ??? Complete Blood Count and Differential ??? Comprehensive Metabolic Panel (CMP) Lindsay Espino MD Hematology/Oncology [facility] * Isidra Hunt RN - 10/15/2021 0900 EDT Procedures: - Venipuncture Performed by: ISIDRA HUNT RN Site Collected: Left Antecubital Space Volume Withdrawn: LAV EDTA 3.0 mL and Bradley SST 8.5 mL Patient Response:Patient tolerated venipuncture well and Butterfly used Number of attempts: Collected on: 10/15/21 9:02 Ordering Provider:Lindsay Espino MD documented in this encounter Plan of Treatment Not on file documented as of this encounter Procedures Procedure Name Priority Date/Time Associated Diagnosis Comments COMPLETE BLOOD COUNT AND DIFFERENTIAL Routine 10/15/2021 9:06 EDT Prostate cancer (HCC-CMS) (HCC) (HCC-CMS) COMPREHENSIVE METABOLIC PANEL (CMP) Routine 10/15/2021 9:06 EDT Prostate cancer (HCC-CMS) (HCC) (HCC-CMS) PSA TOTAL, DIAGNOSTIC Routine 10/15/2021 9:05 EDT Prostate cancer (HCC-CMS) (HCC) (HCC-CMS) documented in this encounter Results * (ABNORMAL) COMPREHENSIVE METABOLIC PANEL (CMP) (10/15/2021 9:06 EDT) Sodium 139 136 - 145 mmol/L 10/15/2021 12:22 EDT [facility] Potassium 4.1 3.5 - 5.0 mmol/L 10/15/2021 12:22 EDT [facility] Chloride 104 96 - 110 mmol/L 10/15/2021 12:22 EDT [facility] CO2 Total 29 22 - 32 mmol/L 10/15/2021 12:22 EDT [facility] Glucose 73 70 - 100 mg/dL 10/15/2021 12:22 [facility] BUN 22 10 - 26 mg/dL 10/15/2021 12:22 [facility] Creatinine 0.78 0.66 - 1.25 mg/dL 10/15/2021 12:22 [facility] eGFR 88 >60 mL/min/1. 73m2 10/15/2021 12:22 [facility] Total Protein 6.2(L) 6.3 - 8.2 g/dL 10/15/2021 12:22 [facility] Comment:The sample was colle cted in a [place] Heparin anticoagulated tube. An average positive bias of 6% with an individual sample bias up to 10% may be observed with heparin plasma results compared to serum results. Albumin 3.8 3.4 - 4.9 g/dL 10/15/2021 12:22 [facility] Alkaline Phosphatase 45 38 - 126 U/L 10/15/2021 12:22 [facility] AST 33 15 - 46 U/L 10/15/2021 12:22 [facility] ALT 35 <50 U/L 10/15/2021 12:22 [facility] Bilirubin, Total 1.2 <1.4 mg/dL 10/15/2021 12:22 [facility] Calcium 8.6 8.5 - 10.5 mg/dL 10/15/2021 12:22 [facility] Albumin/Globulin Ratio 1.6 1.0 - 2.5 10/15/2021 12:22 [facility] Anion Gap 6 5 - 14 10/15/2021 12:22 [facility] Blood VENOUS BLOOD / Unknown Venipuncture / Unknown 10/15/2021 9:06 EDT 10/15/2021 9:06 EDT us Lindsay Espino MD CHEMISTRY & BLOOD GAS ORDERAB LES Final Result [facility] [address] [place] [address] * (ABNORMAL) COMPLETE BLOOD COUNT AND DIFFERENTIAL (10/15/2021 9:06 EDT) WBC 4.12 4.00 - 10.40 K/cmm 10/15/2021 15:41 EDT [facility] RBC 4.17(L) 4.36 - 5.78 M/cmm 10/15/2021 15:41 EDT [facility] Hemoglobin 13.2(L) 13.8 - 17.3 gm/dL 10/15/2021 15:41 EDT [facility] HCT 37.7(L) 39.5 - 50.2 % 10/15/2021 15:41 EDT [facility] MCV 90 81 - 95 fl 10/15/2021 15:41 EDT [facility] MCH 31.7 27.6 - 33.0 pg 10/15/2021 15:41 T [facility] MCHC 35.0 32.8 - 36.4 gm/dL 10/15/2021 15:41 EDT [facility] RDW-CV 14.6(H) <14.2 % 10/15/2021 15:41 T [facility] RDW-SD 47.5(H) <46.0 fl 10/15/2021 15:41 EDT [facility] PLT 131(L) 141 - 377 K/cmm 10/15/2021 15:41 T [facility] MPV 8.8(L) 9.5 - 12.7 fl 10/15/2021 15:41 EDT [facility] % Neutrophils 73.5 % 10/15/2021 15:41 T [facility] % Lymphocytes 12.4 % 10/15/2021 15:41 T [facility] % Monocytes 9.2 % 10/15/2021 15:41 [facility] % Eosinophils 4.4 % 10/15/2021 15:41 T [facility] % Basophils 0.5 % 10/15/2021 15:41 EDT [facility] % Immature Grans 10/16/19 15:41 EDT [facility] Absolute Neutrophils 3.03 2.20 - 8.85 K/cmm 10/15/2021 15:41 EDT [facility] Absolute Lymphocytes 0.51(L) 1.09 - 3.30 K/cmm 10/15/2021 15:41 EDT [facility] Absolute Monocytes 0.38 0.10 - 0.80 K/cmm 10/15/2021 15:41 EDT [facility] Absolute Eosinophils 0.18 0.03 - 0.61 K/cmm 10/15/2021 15:41 EDT [facility] ABS Basophils 0.02 0.01 - 0.11 K/cmm 10/15/2021 15:41 EDT [facility] Absolute Immature Grans 10/15/2021 15:41 T [facility] Type of Differential: Auto 10/15/2021 15:41 EDT [facility] Blood VENOUS BLOOD / Unknown Venipuncture / Unknown 10/15/2021 9:06 EDT 10/15/2021 9:06 EDT Lindsay Espino MD PACKAGES & DNA PROBE ORDERABL ES Final Result [facility] Medical Office [address], [address] [place] [address] * PSA TOTAL, DIAGNOSTIC (10/15/2021 9:05 EDT) PSA <0.064 <=4.000 ng/mL 10/15/2021 13:42 EDT [facility] Blood VENOUS BLOOD / Unknown Venipuncture / Unknown 10/15/2021 9:05 EDT 10/15/2021 9:05 EDT Narrative [facility] - 10/15/2021 13:42 EDT NOTE: Serum PSA concentration should not be interpreted as absolute evidence for the presence or absence of malignant disease. Assayed on Valcon 5600 using chemiluminescent technology.??Values obtained by using different assay methods cannot be used interchangeably. ?? us Manuel White MD CHEMISTRY & BLOOD GAS ORD ERABLES Final Result [facility] [address] [place] [address] documented in this encounter Visit Diagnoses Diagnosis Prostate cancer (HCC-CMS)- Primary Malignant neoplasm of prostate Palpitations Encounter for antineoplastic chemotherapy documented in this encounter Care Teams Electrotyper Helper Relationship Specialty Start Date End Date Manuel White MD [address] [place] [address] Radiation Oncology 09/24/[address] [place] [address] Hazardous Waste Material Technician 09/24/21 documented as of this encounter
--- OUTSIDE RECORDS SUMMARY | 2024-07-09 11:00 | XMS_ITS | Encounter Summary ---
Author Organization [facility] Address [address] [place] [address] Care Team Providers Care Traveling Representative Name Role Phone Manuel White MD Unavailable [phone] Marcella Waller Unavailable Encounter Details Date Type Department Care Team (Late st Contact Info) Description 10/16/2021 Results Only [facility] Radiation Oncology - [facility] [address] [place], [place] [address] Unknown, Provider, Social History Tobacco Use Types [...] Comments RAD ONC ARIA SESSION SUMMARY Routine 10/16/2021 10:16 EDT documented in this encounter Results * RAD ONC ARIA SESSION SUMMARY (10/16/2021 10:16 EDT) Course ID C1 ARIA RADIATION ONCOLOGY Course First Treatment Date 09/11/2021 10:37 ARIA RADIATION ONCOLOGY Course Last Treatment Date 10/16/2021 10:16 ARIA RADIATION ONCOLOGY Course Elapsed Days 35 ARIA RADIATION ONCOLOGY Reference Point ID PROST BED TOTAL ARIA RADIATION ONCOLOGY Reference Point Dosage Given to Date [id number] Gy ARIA RADIATION ONCOLOGY Reference Point Session Dosage Given 2 Gy ARIA RADIATION ONCOLOGY Reference Point ID ProstateBed CD ARIA RADIATION ONCOLOGY Reference Point Dosage Given to Date 2 Gy ARIA RADIATION ONCOLOGY Reference Point Session Dosage Given 2 Gy ARIA RADIATION ONCOLOGY Reference Point ID R IliacNodeTOTAL ARIA RADIATION ONCOLOGY Reference Point Dosage Given to Date 1.45 Gy ARIA RADIATION ONCOLOGY Reference Point Session Dosage Given 1.45 Gy ARIA RADIATION ONCOLOGY Reference Point ID RtIliac Node CD ARIA RADIATION ONCOLOGY Reference Point Dosage Given to Date 1.45 Gy ARIA RADIATION ONCOLOGY Reference Point Session Dosage Given 1.45 Gy ARIA RADIATION ONCOLOGY Plan ID [id number] ARIA RADIATION ONCOLOGY Plan Name [id number] ARIA RADIATION ONCOLOGY Plan Fractions Treated to Date 1 ARIA RADIATION ONCOLOGY Plan Total Fractions Prescribed 7 ARIA RADIATION ONCOLOGY Plan Prescribed Dose Per Fraction 2 Gy ARIA RADIATION ONCOLOGY Plan Total Prescribed Dose 1,400 cGy ARIA RADIATION ONCOLOGY Plan Primary Reference Point ProstateBed CD ARIA RADIATION ONCOLOGY 10/16/2021 10:1 6 EDT us Provider Unknown MD RADIATION ONCOLOGY ORDERABLE S Final Result [facility] RADIATION ONCOLOGY documented in this encounter Visit Diagnoses Not on filedocumented in this encounter Care Teams Traveling Representative Relationship Specialty Start Date End Date Manuel White MD [address] [place] [phone] Radiation Oncology 09/24/21 Marcella Waller [address] [place] [address] Ncqa Specialist 09/24/21 documented as of this encounter
--- OUTSIDE RECORDS SUMMARY | 2024-07-09 11:00 | XMS_ITS | Encounter Summary ---
Author Organization [facility] Address [address] [place] [address] Care Team Providers Care Event Mgr Name Role Phone Manuel White MD Unavailable [phone] Marcella Waller Unavailable Encounter Details Date Type Department Care Team (Late st Contact Info) Description 10/15/2021 Results Only [facility] Radiation Oncology - [facility] [address] [place], [place] [phone] Unknown, Provider, Social History Tobacco Use Types [...] Comments RAD ONC ARIA SESSION SUMMARY Routine 10/15/2021 9:44 EDT documented in this encounter Results * RAD ONC ARIA SESSION SUMMARY (10/15/2021 9:44 EDT) Course ID C1 ARIA RADIATION ONCOLOGY Course First Treatment Date 09/11/2021 10:37 ARIA RADIATION ONCOLOGY Course Last Treatment Date 10/15/2021 9:43 ARIA RADIATION ONCOLOGY Course Elapsed Days 34 ARIA RADIATION ONCOLOGY Reference Point ID PELVIC NODES ARIA RADIATION ONCOLOGY Reference Point Dosage Given to Date 45 Gy ARIA RADIATION ONCOLOGY Reference Point Session Dosage Given 1.8 Gy ARIA RADIATION ONCOLOGY Reference Point ID PROST BED TOTAL ARIA RADIATION ONCOLOGY Reference Point Dosage Given to Date 50 Gy ARIA RADIATION ONCOLOGY Reference Point Session Dosage Given 2 Gy ARIA RADIATION ONCOLOGY Reference Point ID PROSTATE BED ARIA RADIATION ONCOLOGY Reference Point Dosage Given to Date [id number] Gy ARIA RADIATION ONCOLOGY Reference Point Session Dosage Given 2 Gy ARIA RADIATION ONCOLOGY Reference Point ID RT ILIAC NODE ARIA RADIATION ONCOLOGY Reference Point Dosage Given to Date 45 Gy ARIA RADIATION ONCOLOGY Reference Point Session [...] Reference Point PROSTATE BED ARIA RADIATION ONCOLOGY 10/15/2021 9:44 EDT us Provider Unknown RADIATION ONCOLOGY ORDERABLE S Final Result [facility] RADIATION ONCOLOGY documented in this encounter Visit Diagnoses Not on filedocumented in this encounter Care Teams Event Mgr Relationship Specialty Start Date End Date Manuel White MD [address] [place] [phone] Radiation Oncology 09/24/[address] [place] [address] Welfare Centre Manager 09/24/21 documented as of this encounter
--- OUTSIDE RECORDS SUMMARY | 2024-07-09 11:00 | XMS_ITS | Encounter Summary ---
Author Organization [facility] Address [address] [place] [address] Care Team Providers Care Consumer Education Specialist Name Role Phone Manuel White MD Unavailable [phone] Marcella Waller Unavailable Encounter Details Date Type Department Care Team (Late st Contact Info) Description 10/10/2021 Results Only [facility] Radiation Oncology - [facility] [address], [place] [address] Unknown, Provider, Social History Tobacco Use Types [...] Comments RAD ONC ARIA SESSION SUMMARY Routine 10/10/2021 9:57 EDT documented in this encounter Results * RAD ONC ARIA SESSION SUMMARY (10/10/2021 9:57 EDT) Course ID C1 ARIA RADIATION ONCOLOGY Course First Treatment Date 09/11/2021 10:37 [facility] RADIATION ONCOLOGY Course Last Treatment Date 10/10/2021 9:57 [facility] RADIATION ONCOLOGY Course Elapsed Days 29 [facility]COL[facility] Reference Point ID PELVIC NODES [facility]ATION ONCOLOG[facility] Reference Point Dosage Given to Date 39.6 Gy [facility] RADIATION ONCOLOGY Reference Point Session Dosage Given 1.8 Gy [facility]COL[facility] Reference Point ID PROST BED TOTAL [facility]COLOG[facility] Reference Point Dosage Given to Date 44 Gy [facility] RADIATION ONCOLOGY Reference Point Session Dosage Given 2 Gy [facility] RAD[facility]ATION ONCOLOG[facility] Reference Point ID PROSTATE BED [facility]ATION ONCOLOG[facility] Reference Point Dosage Given to Date 44 Gy [facility] RADIATION ONCOLOGY Reference Point Session Dosage Given 2 Gy [facility]ATION ONCOLOG[facility] Reference Point ID RT ILIAC NODE [facility] RADIATION ONCOLOG[facility] Reference Point Dosage Given to Date 39.6 Gy [facility] RADIATION ONCOLOGY Reference Point Session Dosage Given 1.8 Gy [facility] RAD[facility]ATION ONCOLOG[facility] Plan ID [id number] [facility] RADIATION ONCOLOGY Plan Name [id number] [facility] RADIATION ONCOLOGY Plan Fractions Treated to Date 22 [facility] RADIATION ONCOLOGY Plan Total Fractions Prescribed 25 [facility] RADIATION ONCOLOGY Plan Prescribed Dose Per Fraction 2 Gy [facility] RADIATION ONCOLOGY Plan Total Prescribed Dose 5,000 cGy [facility] RADIATION ONCOLOGY Plan Primary Reference Point PROSTATE BED ARIA RADIATION ONCOLOGY 10/10/2021 9:57 EDT us Provider Unknown RADIATION ONCOLOGY ORDERABLE S Final Result Performing Organization Address City/State/[facility] Co de Phone Number [facility] RADIATION ONCOLOGY documented in this encounter Visit Diagnoses Not on filedocumented in this encounter Care Teams Consumer Education Specialist Relationship Specialty Start Date End Date Manuel White MD [address] [place] [phone] Radiation Oncology 09/24/[address] [place] [address] Business Unit Director 09/24/21 documented as of this encounter
--- OUTSIDE RECORDS SUMMARY | 2024-07-09 11:00 | XMS_ITS | Encounter Summary ---
Author Organization [facility] Address [address] [place] [address] Care Team Providers Care Ore Washer Name Role Phone Manuel White MD Unavailable [phone] Marcella Waller Unavailable Encounter Details Date Type Department Care Team (Late st Contact Info) Description 10/17/2021 Results Only [facility] Radiation Oncology - [facility] [address] [place], [place] [id number] Unknown, Provider, Social History Tobacco Use Types [...] Comments RAD ONC ARIA SESSION SUMMARY Routine 10/17/2021 10:07 EDT documented in this encounter Results * RAD ONC ARIA SESSION SUMMARY (10/17/2021 10:07 EDT) Course ID C1 ARIA RADIATION ONCOLOGY Course First Treatment Date 09/11/2021 10:37 [facility]A RADIATION ONCOLOGY Course Last Treatment Date 10/17/2021 10:07 [facility]A RADIATION ONCOLOGY Course Elapsed Days 36 [facility] RADIATION ONCOLOGY Reference Point ID PROST BED TOTAL [facility] RADIATION ONCOLOGY Reference Point Dosage Given to Date 54 Gy [facility] RADIATION ONCOLOGY Reference Point Session Dosage Given 2 Gy [facility] RADIATION ONCOLOGY Reference Point ID ProstateBed CD [facility] RADIATION ONCOLOGY Reference Point Dosage Given to Date 4 Gy [facility] RADIATION ONCOLOGY Reference Point Session Dosage Given 2 Gy [facility] RAD[facility]ATION ONCOLOGY Reference Point ID R IliacNodeTOTAL [facility] RADIATION ONCOLOGY Reference Point Dosage Given to Date 2.9 Gy [facility] RADIATION ONCOLOGY Reference Point Session Dosage Given 1.45 Gy [facility] RADIATION ONCOLOGY Reference Point ID RtIliac Node CD [facility] RADIATION ONCOLOGY Reference Point Dosage Given to Date 2.9 Gy [facility] RADIATION ONCOLOGY Reference Point Session Dosage Given 1.45 Gy [facility] RADIATION ONCOLOGY Plan ID [id number] [facility] RADIATION ONCOLOGY Plan Name [id number] [facility] RADIATION ONCOLOGY Plan Fractions Treated to Date 2 [facility] RADIATION ONCOLOGY Plan Total Fractions Prescribed 7 [facility] RADIATION ONCOLOGY Plan Prescribed Dose Per Fraction 2 Gy [facility]A RADIATION ONCOLOGY Plan Total Prescribed Dose 1,400 cGy [facility]A RADIATION ONCOLOGY Plan Primary Reference Point ProstateBed CD ARIA RADIATION ONCOLOGY 10/17/2021 10:0 7 EDT us Provider Unknown RADIATION ONCOLOGY ORDERABLE S Final Result ARIA RADIATION ONCOLOGY documented in this encounter Visit Diagnoses Not on filedocumented in this encounter Care Teams Ore Washer Relationship Specialty Start Date End Date Manuel White MD [address] [place] [phone] Radiation Oncology 09/24/21 Marcella Waller [address] [facility] [place] [address] Brand Recorder 09/24/21 documented as of this encounter
--- OUTSIDE RECORDS SUMMARY | 2024-07-09 11:00 | XMS_ITS | Encounter Summary ---
Author Organization [facility] Address [address] [place] [address] Care Team Providers Care Advertising Copywriter Name Role Phone Manuel White MD Unavailable [phone] Marcella Waller Unavailable Encounter Details Date Type Department Care Team (Latest Contact Info) Description 10/12/2021 9:45 EDT - 10/12/2021 23:[address] [facility] Cancer Treatment [place] [address] [place] [address] Discharge Disposition: Home or Self Care Social [...] on filedocumented in this encounter Care Teams Advertising Copywriter Relationship Specialty Start Date End Date Manuel White MD [address] [place] [phone] Radiation Oncology 09/24/[address] [place] [address] Stripper Latex 09/24/21 documented as of this encounter
--- OUTSIDE RECORDS SUMMARY | 2024-07-09 11:00 | XMS_ITS | Encounter Summary ---
Author Organization [facility] Address [address] [place] [address] Care Team Providers Care Slab Grinder Name Role Phone Manuel White MD Unavailable [phone] Marcella Waller Unavailable Reason for Visit * Reason Comments Cardiac Testing Zio patch-14 days Encounter Details Date Type Department Care Team (Late st Contact Info) Description 10/08/2021 10:30 EDT Nurse Only [facility] Card[facility] Clinic [address] [place], [place] [address] Nurse, [facility] Palpitations (Primary Dx) Social History Tobacco Use Types [...] documented in this encounter Progress Notes * Dana Peguero RN - 10/08/2021 1030 EDT Pt to office for placement of 14 day Zio monitor. Pt aox3 and w/o complaints. Reviewed patient information and instructions with patient who verbalizes understanding. Zio monitor applied to left chest after appropriate skin prep per guidelines from deck and hull assembler. Pt demonstrated pushing event buttonto activate after application. Pt verbalizes understanding of documenting events after pushing the event button. Reviewed troubleshooting the device as well as how to contact the deck and hull assembler help line with questions/concerns. Pt verbalizes understanding of removal and how to mail it back to the deck and hull assembler. documented in this encounter Plan of Treatment Not on file documented as of this encounter Visit Diagnoses Diagnosis Palpitations- Primary documented in this encounter Care Teams Slab Grinder Relationship Specialty Start Date End Date Manuel White MD [address] [place] [phone] Radiation Oncology 09/24/[address] [place] [address] Independent Consultant 09/24/21 documented as of this encounter
--- OUTSIDE RECORDS SUMMARY | 2024-07-09 11:01 | XMS_ITS | Encounter Summary ---
Author Organization [facility] Address [address] [place] [address] Care Team Providers Care Retort Forker Name Role Phone Manuel White MD Unavailable [phone] Marcella Waller Unavailable Encounter Details Date Type Department Care Team (Latest Contact Info) Description 09/26/2021 10:15 EST - 09/26/2021 23:59 EST Hospital Encounter [facility] Cancer Treatment [place] [address] [place] [address] Discharge Disposition: Home or Self Care Social [...] mouth daily. 30 Tablet 2 08/27/2021 10/18/2021 predniSONE (DELTASONE) 5 mg tablet Take 1 Tablet by mouth daily for 90 days. 30 Tablet 09/05/2021 10/02/2021 documented as of this encounter Discharge Disposition Disposition Code Departure Means Destination Home or Self Care documented in this encounter Plan of Treatment Not on file documented as of this encounter Visit Diagnoses Not on filedocumented in this encounter Care Teams Retort Forker Relationship Specialty Start Date End Date Manuel Whiet MD [address] [place] [phone] Radiation Oncology 09/24/[address] [place] [address] Ore Washer 09/24/21 documented as of this encounter
--- OUTSIDE RECORDS SUMMARY | 2024-07-09 11:01 | XMS_ITS | Encounter Summary ---
Author Organization [facility] Address [address] [place] [address] Care Team Providers Care Solder Making Supervisor Name Role Phone Unavailable Primary Care Provider Unavailabl e Encounter Details Date Type Department Care Team (Latest Contact Info) Description 09/14/2021 9:45 EST - 09/14/2021 23:59 EST Hospital Encounter [facility] - [facility] - [facility] Cancer Treatment [place] [address] [place] [address] Discharge Disposition: Home or Self Care Social [...]
--- OUTSIDE RECORDS SUMMARY | 2024-07-09 11:01 | XMS_ITS | Encounter Summary ---
Author Organization [facility] Address [address] [place] [address] Care Team Providers Care Milk Powder Grinder Name Role Phone Unavailable Primary Care Provider Unavailabl e Encounter Details Date Type Department Care Team (Latest Contact Info) Description 09/17/2021 10:15 EST - 09/17/2021 23:59 EST Hospital Encounter [facility] - [facility] - [facility] Cancer Treatment [place] [address] [place] [address] Discharge Disposition: Home or Self Care Social [...]
--- OUTSIDE RECORDS SUMMARY | 2024-07-09 11:01 | XMS_ITS | Encounter Summary ---
Author Organization [facility] Address [address] [place] [address] Care Team Providers Care Integrated Circuit Fabricator Name Role Phone Unavailable Primary Care Provider Unavailabl e Encounter Details Date Type Department Care Team (Latest Contact Info) Description 09/20/2021 10:15 EST - 09/20/2021 23:59 EST Hospital Encounter [facility] - [facility] - [facility] Cancer Treatment [place] [address] [place] [address] Discharge Disposition: Home or Self Care Social [...]
--- OUTSIDE RECORDS SUMMARY | 2024-07-09 11:01 | XMS_ITS | Encounter Summary ---
Author Organization [facility] Address [address] [place] [address] Care Team Providers Care Timers Inspector Name Role Phone Manuel White MD Unavailable [phone] Marcella Waller Unavailable Reason for Visit * Reason Comments Follow-up Encounter Details Date Type Department Care Team (Late st Contact Info) Description 09/27/2021 16:30 EST Office Visit [facility] Adult Hematology & Oncology [address] [place] [phone] [place] [address] [facility] [address] [place] [address] (Fax) Prostate cancer (HCC-CMS) (HCC) (HCC-CMS) (Primary Dx); Palpitations Social History Tobacco Use Types Packs/Day [...] Sign Reading Time Taken Comments Blood Pressure 140/70 09/27/2021 1613 EST Pulse 65 09/27/2021 1613 EST Temperature - - Respiratory Rate - - Oxygen Saturation 97% 09/27/2021 1613 EST Inhaled Oxygen Concentration - - Weight 87.5 kg (193 lb) 09/27/2021 1613 EST Height - - Body Mass Index 27.3 03/29/2016 0847 EDT documented in this encounter [...] Progress Notes * Lindsay Espino MD - 09/27/2021 1630 EST Images from the original note were not included. Hematology/Oncology Follow up Note Oncology History Prostate cancer (HCC-CMS) ([facility]) 07/19/2006 Initial Diagnosis Prostate cancer 07/19/2006 [...] at the [facility] showed [place] 4+5 involving 20 to 50% of 3 cores from the targeted lesion. There was an intraductal carcinoma component present. The remaining tissue was negative for malignancy. 02/08/2019 - Cancer Staged Staging form: Prostate, AJCC 8th Edition - Clinical stage from 02/08/2019: Stage IIIC (cT1c, cN0, cM0, PSA: 7.3, Grade Group: 5, 02/08/19, [place]: 4, +: 5) 02/22/2019 - Cancer Staged February 22, 2019: Nuclear medicine bone scan at [facility] showed no evidence of bony metastatic disease 05/18/2019 Surgery 05/18/2019 Surgery May 18, 2019: Radical prostatectomy with pathology reviewed at [facility] showed [place] 4+5 involving 10% of the prostate. There [...] spine with mild lumbar spondylosis. 09/11/2021 - Radiation Therapy -08/10/21: Lupron -Started radiation therapy. 09/12/2021 - Chemotherapy Abiraterone and prednisone. Interim History: Gregg returns for follow-up. He is complaining of palpitations. He did have them in the past but more frequent since starting the androgen deprivation therapy. Happens more frequently during nights and lasts only for a few minutes. Not related to any activity or exertion. Denies any chest pain, lightheadedness or shortness of breath during those episodes. He did have issues with panic attacks in the past. Review of Systems Constitutional: Negative for chills, [...] for 90 days. 30 Tablet 0 Taking No current facility-administered medications for this visit. Vitals: 09/27/21 1613 BP: 140/70 Pulse: 65 SpO2: 97% Weight: 87.5 kg (193 lb) Wt Readings from Last 3 Encounters: 09/27/21 87.5 kg (193 lb) 09/25/21 87.9 kg (193 lb 12.8 oz) 09/05/21 87.5 kg (193 lb) Performance Status: (0) Fully active, able [...] He has a normal mood and affect. Labs: Results for orders placed or performed in visit on 09/27/21 COMPLETE BLOOD COUNT AND DIFFERENTIAL Result Value Ref Range WBC 5.27 4.00 - 10.40 K/cmm RBC 4.20 (L) 4.36 - 5.78 M/cmm Hemoglobin 13.2 (L) 13.8 - 17.3 gm/dL HCT 37.9 (L) 39.5 - 50.2 % MCV 90 81 - 95 fl MCH 31.4 27.6 - 33.0 pg MCHC 34.8 32.8 - 36.4 gm/dL RDW-CV 14.4 (H) <14.2 % RDW-SD 46.4 (H) <46.0 fl PLT 136 (L) 141 - 377 K/cmm MPV 9.2 (L) 9.5 - 12.7 fl Neutrophils 63.9 % Lymphocytes 23.9 % Monocytes 7.8 % Eosinophils 3.8 % Basophils 0.6 % Immature Grans Absolute Neutrophils 3.37 2.20 - 8.85 K/cmm Absolute Lymphocytes 1.26 1.09 - 3.30 K/cmm Absolute Monocytes 0.41 0.10 - 0.80 K/cmm Absolute Eosinophils 0.20 0.03 - 0.61 K/cmm Absolute Basophils 0.03 0.01 - 0.11 K/cmm Absolute Immature Grans Type of Differential: Auto ASSESSMENT: 75-year-old male who is s/p radical prostatectomy in April 2019 for diagnosis of localized prostate cancer with rising PSA and PET scan showing possible lymph node recurrence. ?? 1. Recurrent prostate cancer s/p radical prostatectomy. PSMA PET scan at [facility] showed mild FDG uptake particularly in the larger right external iliac lymph node concerning for metastasis. Given the lymph node recurrence and high decipher score, he was started on abiraterone along with ADT plus radiation. He has been tolerating the abiraterone relatively well. However, he has been having episodes of palpitations which could be seen with either Lupron or abiraterone. The palpitations are lasting for only a few minutes and he denies any associated symptoms such as chest pain, shortness of breath or dizziness. 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 CBC reviewed from today. There is mild anemia and thrombocytopenia which could be treatment related. CMP pending from today. ?? Received first shot of Lupron on 08/10/2021. PLAN: 1. Follow-up CMP. 2. Return for follow-up in 2 weeks. Other Orders Placed This Visit Procedures ??? Complete Blood Count and Differential ??? Comprehensive Metabolic Panel (CMP) Lindsay Espino MD Hematology/Oncology [facility] CC: Dr. White documented in this encounter Plan of Treatment Not on file documented as of this encounter Procedures Procedure Name Priority Date/Time Associated Diagnosis Comments COMPLETE BLOOD COUNT AND DIFFERENTIAL Routine 09/27/2021 16:20 EST Prostate cancer (HCC-CMS) (HCC) (HCC-CMS) COMPREHENSIVE METABOLIC PANEL (CMP) Routine 09/27/2021 16:20 EST Prostate cancer (HCC-CMS) (HCC) (HCC-CMS) documented in this encounter Results * COMPREHENSIVE METABOLIC PANEL (CMP) (09/27/2021 16:20 EST) Sodium 137 136 - 145 mmol/L 09/27/2021 18:04 EST [facility] Potassium 4.1 3.5 - 5.0 mmol/L 09/27/2021 18:04 [facility] Chloride 102 96 - 110 mmol/L 09/27/2021 18:04 [facility] CO2 Total 28 22 - 32 mmol/L 09/27/2021 18:04 [facility] Glucose 88 70 - 100 mg/dL 09/27/2021 18:04 [facility] BUN 21 10 - 26 mg/dL 09/27/2021 18:04 [facility] Creatinine 0.95 0.66 - 1.25 mg/dL 09/27/2021 18:04 [facility] eGFR 79 >60 mL/min/1.7 3m2 09/27/2021 18:04 [facility] Total Protein 6.4 6.3 - 8.2 g/dL 09/27/2021 18:04 [facility] Comment:The sample was colle cted in a [place] Heparin anticoagulated tube. An average positive bias of 6% with an individual sample bias up to 10% may be observed with heparin plasma results compared to serum results. Albumin 4.0 3.4 - 4.9 g/dL 09/27/2021 18:04 [facility] Alkaline Phosphatase 49 38 - 126 U/L 09/27/2021 18:04 [facility] AST 42 15 - 46 U/L 09/27/2021 18:04 [facility] ALT 44 <50 U/L 09/27/2021 18:04 [facility] Bilirubin, Total 0.8 <1.4 mg/dL 09/28/19 18:04 [facility] Calcium 8.9 8.5 - 10.5 mg/dL 09/27/2021 18:04 [facility] Albumin/Globulin Ratio 1.7 1.0 - 2.5 09/27/2021 18:04 [facility] Anion Gap 7 5 - 14 09/27/2021 18:04 [facility] Blood VENOUS BLOOD / Unknown Venipuncture / Unknown 09/27/2021 16:20 EST 09/27/2021 16:20 EST us Lindsay Espino MD CHEMISTRY & BLOOD GAS ORDERAB LES Final Result [facility] [address] [place] [address] * (ABNORMAL) COMPLETE BLOOD COUNT AND DIFFERENTIAL (09/27/2021 16:20 EST) WBC 5.27 4.00 - 10.40 K/cmm 09/27/2021 16:24 EST [facility]COL[facility]Y - [place] RBC 4.20(L) 4.36 - 5.78 M/cmm 09/27/2021 16:24 [facility] HEMATOLOGY & ONCOLOGY [facility] Hemoglobin 13.2(L) 13.8 - 17.3 gm/dL 09/27/2021 16:24 EST [facility]EMATOLOGY & ONCOLOGY - [place] HCT 37.9(L) 39.5 - 50.2 % 09/27/2021 16:24 [facility] HEMATOLOGY & ONCOLOGY - [place] MCV 90 81 - 95 fl 09/27/2021 16:24 [facility] HEMATOLOGY & ONCOLOGY - [place] MCH 31.4 27.6 - 33.0 pg 09/27/2021 16:24 [facility] HEMATOLOGY & ONCOLOGY - [place] MCHC 34.8 32.8 - 36.4 gm/dL 09/27/2021 16:24 [facility] HEMATOLOGY & ONCOLOGY [facility] RDW-CV 14.4(H) <14.2 % 09/27/2021 16:24 [facility] HEMATOLOGY & ONCOLOGY - [place] RDW-SD 46.4(H) <46.0 fl 09/27/2021 16:24 EST [facility]EMATOLOGY & ONCOLOGY - [place] PLT 136(L) 141 - 377 K/cmm 09/27/2021 16:24 [facility] HEMATOLOGY & [facility]COLOGY - [place] MPV 9.2(L) 9.5 - 12.7 fl 09/27/2021 16:24 [facility] HEMATOLOGY & ONCOLOGY - [place] % Neutrophils 63.9 % 09/27/2021 16:24 [facility]ATOLOG[facility] & [facility] - [place] % Lymphocytes 23.9 % 09/27/2021 16:24 [facility]ATOLOG[facility] - [place] % Monocytes 7.8 % 09/27/2021 16:24 [facility] HEMATOLOG[facility] & [facility]Y - [place] % Eosinophils 3.8 % 09/27/2021 16:24 EST [facility] % Basophils 0.6 % 09/27/2021 16:24 EST [facility] % Immature Grans 09/28/19 16:24 EST [facility] Absolute Neutrophils 3.37 2.20 - 8.85 K/cmm 09/27/2021 16:24 EST [facility] Absolute Lymphocytes 1.26 1.09 - 3.30 K/cmm 09/27/2021 16:24 EST [facility] Absolute Monocytes 0.41 0.10 - 0.80 K/cmm 09/27/2021 16:24 EST [facility] Absolute Eosinophils 0.20 0.03 - 0.61 K/cmm 09/27/2021 16:24 EST [facility] ABS Basophils 0.03 0.01 - 0.11 K/cmm 09/27/2021 16:24 EST [facility] Absolute Immature Grans 09/27/2021 16:24 EST [facility] Type of Differential: Auto 09/27/2021 16:24 EST [facility] Blood VENOUS BLOOD / Unknown Venipuncture / Unknown 09/27/2021 16:20 EST 09/27/2021 16:20 EST us Lindsay Espino MD PACKAGES & DNA PROBE ORDERABL ES Final Result [facility] Medical Office Building [address], [address] [place] [address] documented in this encounter Visit Diagnoses Diagnosis Prostate cancer (HCC-CMS)- Primary Malignant neoplasm of prostate Palpitations documented in this encounter Care Teams Timers Inspector Relationship Specialty Start Date End Date Manuel White MD [address] [place], [place] [phone] Radiation Oncology 09/24/21 Marcella Waller [address] [place] [address] Retail Financial Analyst 09/24/21 documented as of this encounter
--- OUTSIDE RECORDS SUMMARY | 2024-07-09 11:01 | XMS_ITS | Encounter Summary ---
Author Organization [facility] Address [address] [place] [address] Care Team Providers Care Custom Grinder Name Role Phone Manuel White MD Unavailable [phone] Marcella Waller Unavailable Encounter Details Date Type Department Care Team (Late st Contact Info) Description 10/01/2021 Documentation Visit [facility] Cancer Treatment [place] [address] [place] [address] Anisha Munroe, AGNIESZKA Social History Tobacco Use Types Packs/Day [...] documented in this encounter Progress Notes * Anisha Munroe RN - 10/01/2021 1007 EST Denies dysuria. Nocturia 0. Reports constipation for 2 days over the weekend, with abdominal cramping, relieved with the use of senokot x2. Pt also started eating more soluble fibers in diet. Discussiion about increasing fluid intake also. documented in this encounter Plan of Treatment Not on file documented as of this encounter Visit Diagnoses Not on filedocumented in this encounter Care Teams Custom Grinder Relationship Specialty Start Date End Date Manuel White MD [address] [place] [phone] Radiation Oncology 09/24/21 Marcella Waller [address] [place] [address] [address] [place] [address] Casserole Preparer 09/24/21 documented as of this encounter
--- OUTSIDE RECORDS SUMMARY | 2024-07-09 11:01 | XMS_ITS | Encounter Summary ---
Author Organization [facility] Address [address] [place] [address] Care Team Providers Care Tubular Stock Glass Bulb Machine Former Name Role Phone Manuel White MD Unavailable [phone] Marcella Waller Unavailable Reason for Visit * Reason Onset Date Comments Medications Refill 10/02/2021 Encounter Details Date Type Department Care Team (Late st Contact Info) Description 10/02/2021 Refill [facility] Adult Hematology & Oncology [address] [place] [address] [place] [address] [facility] [address] [place] [address] Medications Refill Social History Tobacco Use Types [...] for 90 days. 30 Tablet 10/02/2021 11/05/2021 documented in this encounter Miscellaneous Notes * Telephone Encounter - Scarlet Oates RN - 10/02/2021 1052 EST Refill request for prednisone 5 mg tablet made via [employer]. Last refilled: 09/05/21 #30 tablets, no refills. Last seen: 09/27/21 Dr. Espino - Agree with attached refill? * Telephone Encounter - Scarlet Oates RN - 10/02/2021 1051 ESTFrom: Ken Mckeon To: Office of Lindsay Espino MD Sent: 10/02/2021 10:26 EST Subject: Medication Renewal Request Refills have been requested for the following medications: predniSONE (DELTASONE) 5 mg tablet [Lindsay Espino MD] Preferred pharmacy: [id number] - [address] documented in this encounter Plan of Treatment Not on file documented as of this encounter Visit Diagnoses Not on filedocumented in this encounter Discontinued Medications Medication Sig Discontinue Reason Start Date End Da te predniSONE (DELTASONE) 5 mg tablet Take 1 Tablet by mouth daily for 90 days. Reorder 09/05/2021 10/02/2021 documented as of this encounter Care Teams Tubular Stock Glass Bulb Machine Former Relationship Specialty Start Date End Date Manuel White MD [address] [place] [phone] Radiation Oncology 09/24/21 Marcella Waller [address] [place] [address] Medical Typist 09/24/21 documented as of this encounter
--- OUTSIDE RECORDS SUMMARY | 2024-07-09 11:01 | XMS_ITS | Encounter Summary ---
Author Organization [facility] Address [address] [place] [address] Care Team Providers Care Check Grader Name Role Phone Manuel White MD Unavailable [phone] Marcella Waller Unavailable Reason for Visit * Reason Comments Prostate Cancer Encounter Details Date Type Department Care Team (Late st Contact Info) Description 09/26/2021 Radiation Therapy Visit [facility] Cancer Treatment [place] [address] [place] [address] Manuel White MD [address] [facility], [facility] [address] [place] [address] Prostate cancer (HCC-CMS) (HCC) (HCC-CMS) [...] Progress Notes * Manuel White MD - 09/26/2021 1039 EST Images from the original note were not included. Radiation Oncology- On Treatment Visit On Treatment Visit Assessment:09/26/21 Ken Mckeon is currently receiving radiation therapy treatment and is being seen today for his weekly on treatment visit. Encounter Diagnosis: ICD-10-CM ICD-9-CM 1. Prostate cancer (HCC-CMS) (HCC) C61 185 Radiation Therapy Dose: Radiation Treatments Active Plans [id number] Most recent treatment: Dose planned: 200 cGy (fraction 12 on 09/26/2021) Total: Dose planned: 5,000 cGy (25 fractions) Elapsed Days: 15 Reference Points PELVIC NODES Most recent treatment: Dose given: 180 cGy (on 09/26/2021) Total: Dose given: 2,160 cGy Elapsed Days: 15 PROST BED TOTAL Most recent treatment: Dose given: 200 cGy (on 09/26/2021) Total: Dose given: 2,400 cGy Elapsed Days: 15 PROSTATE BED Most recent treatment: Dose given: 200 cGy (on 09/26/2021) Total: Dose given: 2,400 cGy Elapsed Days: 15 RT ILIAC NODE Most recent treatment: Dose given: 180 cGy (on 09/26/2021) Total: Dose given: 2,160 cGy Elapsed Days: 15 No flowsheet data found. Subjective Note: Some cramping abd discomfort yesterday. Urgency voiding and nocturia stable. Pain: 0/10: Location:pelvis Physical Exam: There were no vitals filed for this visit. Wt Readings from Last 3 Encounters: 09/25/21 87.9 kg (193 lb 12.8 oz) 09/05/21 87.5 kg (193 lb) 08/27/21 85.7 kg (189 lb) ECOG Performance Status: (0) Fully active, able to carry on all predisease performance without restriction Ad soft. Treatment Related Toxicity: Radiation Dermatitis: (0) No reaction. Radiation Fatigue: (0) No fatigue Current Labs: Lab Results Component Value Date WBC 6.89 09/05/2021 HGB 14.6 09/05/2021 HCT 42.4 09/05/2021 PLT 150 09/05/2021 ALT 20 09/05/2021 AST 42 09/05/2021 NA 138 09/05/2021 K 4.4 09/05/2021 CL 100 09/05/2021 CREATININE 0.86 09/05/2021 BUN 18 09/05/2021 CO2 27 09/05/2021 Medication Reconciliation: Medications were reviewed with the patient. Impression: Ken Mckeon is tolerating treatment well Plan: Reviewed treatment set up notes. Checked and approved portal images/CBCT. Reviewed dose delivery treatment parameters and deemed appropriate. After assessing the patient's response to treatment thus far, we will continue with radiation treatments as planned. Manuel White MD Rad[place] [place] (p) [phone] / (f) [phone] documented in this encounter Plan of Treatment Not on file documented as of this encounter Visit Diagnoses Diagnosis Prostate cancer ([facility]-CMS)- Primary Malignant neoplasm of prostate documented in this encounter Care Teams Check Grader Relationship Specialty Start Date End Date Manuel White MD [address] [place] [phone] Radiation Oncology 09/24/21 Marcella Waller ,[address] [place] [address] Rag Room Supervisor 09/24/21 documented as of this encounter
--- OUTSIDE RECORDS SUMMARY | 2024-07-09 11:01 | XMS_ITS | Encounter Summary ---
Author Organization [facility] Address [address] [place] [address] Care Team Providers Care Steward/Stewardess Night Name Role Phone Unavailable Primary Care Provider Unavailabl e Encounter Details Date Type Department Care Team (Latest Contact Info) Description 09/21/2021 10:15 EST - 09/21/2021 23:[address] [facility] - [facility] Cancer Treatment [place] [address] [place] [address] Discharge Disposition: Home or Self Care Social [...]
--- OUTSIDE RECORDS SUMMARY | 2024-07-09 11:01 | XMS_ITS | Encounter Summary ---
Author Organization [facility] Address [address] [place] [address] Care Team Providers Care Hat Conditioner Name Role Phone Manuel White MD Unavailable [phone] Marcella Waller Unavailable Encounter Details Date Type Department Care Team (Late st Contact Info) Description 09/24/2021 Results Only [facility] Radiation Oncology - [facility] [address] [place], [place] [address] Unknown, Provider, Social History Tobacco Use Types [...] Comments RAD ONC ARIA SESSION SUMMARY Routine 09/24/2021 10:46 EST documented in this encounter Results * RAD ONC ARIA SESSION SUMMARY (09/24/2021 10:46 EST) Course ID C1 [facility] RADIATION ONCOLOGY Course First Treatment Date 09/11/2021 10:37 [facility] Course Last Treatment Date 09/24/2021 10:47 [facility] Course Elapsed Days 13 [facility] Reference Point ID PELVIC NODES [facility] Reference Point Dosage Given to Date 18 Gy [facility] Reference Point Session Dosage Given 1.8 Gy [facility] Reference Point ID PROST BED TOTAL [facility] Reference Point Dosage Given to Date 20 Gy [facility] Reference Point Session Dosage Given 2 Gy [facility]IATION [facility]COLOG[facility] Reference Point ID PROSTATE BED [facility]ATION ONCOLOG[facility] Reference Point Dosage Given to Date 20 Gy [facility]IATION ONCOLOG[facility] Reference Point Session Dosage Given 2 Gy [facility] RADIATION ONCOLOG[facility] Reference Point ID RT ILIAC NODE [facility] ONCOLOG[facility] Reference Point Dosage Given to Date 18 Gy [facility]ATION ONCOLOG[facility] Reference Point Session Dosage Given 1.8 Gy [facility]COLOG[facility] Plan ID [id number] [facility]ATION ONCOLOG[facility] Plan Name [id number] [facility]COLOG[facility] Plan Fractions Treated to Date 10 [facility] RAD[facility]ATION ONCOLOG[facility] Plan Total Fractions Prescribed 25 [facility] RAD[facility]ATION ONCOLOG[facility] Plan Prescribed Dose Per Fraction 2 Gy [facility] RAD[facility]ATION ONCOLOG[facility] Plan Total Prescribed Dose 5,000 cGy [facility]ATION ONCOLOG[facility] Plan Primary Reference Point PROSTATE BED [facility] RAD[facility]ATION ONCOLOGY 09/24/2021 10:4 6 EST us Provider Unknown MD RADIATION ONCOLOGY ORDERABLE S Final Result Performing Organization Address City/State/[facility] Co de Phone Number [facility] documented in this encounter Visit Diagnoses Not on filedocumented in this encounter Care Teams Hat Conditioner Relationship Specialty Start Date End Date Manuel White MD [address] [place] [phone] Radiation Oncology 09/24/[address] [place] [address] Guard Lieutenant 09/24/21 documented as of this encounter
--- OUTSIDE RECORDS SUMMARY | 2024-07-09 11:01 | XMS_ITS | Encounter Summary ---
Author Organization [facility] Address [address] [place] [address] Care Team Providers Care Research And Development Engineer Name Role Phone Manuel White MD Unavailable [phone] Marcella Waller Unavailable Encounter Details Date Type Department Care Team (Late st Contact Info) Description 10/01/2021 Results Only [facility] Radiation Oncology - [facility] [address] [place], [place] [address] Unknown, Provider, Social History Tobacco Use Types [...] Comments RAD ONC ARIA SESSION SUMMARY Routine 10/01/2021 9:51 EST documented in this encounter Results * RAD ONC ARIA SESSION SUMMARY (10/01/2021 9:51 EST) Course ID C1 [facility] RADIATION ONCOLOGY Course First Treatment Date 09/11/2021 10:37 [facility]COL[facility] Course Last Treatment Date 10/01/2021 9:51 [facility] RAD[facility]ATION ONCOLOGY Course Elapsed Days 20 [facility] Reference Point ID PELVIC NODES [facility] RAD[facility]COLOG[facility] Reference Point Dosage Given to Date 27 Gy [facility] RAD[facility]ATION ONCOLOG[facility] Reference Point Session Dosage Given 1.8 Gy [facility] RADIATION ONCOLOGY Reference Point ID PROST BED TOTAL [facility]ATION [facility]COLOG[facility] Reference Point Dosage Given to Date 30 Gy [facility]ATION [facility]COLOG[facility] Reference Point Session Dosage Given 2 Gy [facility] RADIATION ONCOLOG[facility] Reference Point ID PROSTATE BED [facility] RADIATION ONCOLOGY Reference Point Dosage Given to Date 30 Gy [facility] RADIATION ONCOLOGY Reference Point Session Dosage Given 2 Gy [facility] RADIATION ONCOLOG[facility] Reference Point ID RT ILIAC NODE [facility]COLOG[facility] Reference Point Dosage Given to Date 27 Gy [facility] RADIATION ONCOLOG[facility] Reference Point Session Dosage Given 1.8 Gy [facility] RADIATION ONCOLOG[facility] Plan ID [id number] [facility] RAD[facility]ATION ONCOLOG[facility] Plan Name [id number] [facility] RADIATION ONCOLOG[facility] Plan Fractions Treated to Date 15 [facility] RADIATION ONCOLOGY Plan Total Fractions Prescribed 25 [facility] RADIATION ONCOLOGY Plan Prescribed Dose Per Fraction 2 Gy [facility] RADIATION ONCOLOGY Plan Total Prescribed Dose 5,000 cGy [facility] RADIATION ONCOLOGY Plan Primary Reference Point PROSTATE BED [facility] RADIATION ONCOLOGY 10/01/2021 9:51 EST us Provider Unknown MD RADIATION ONCOLOGY ORDERABLE S Final Result Performing Organization Address City/State/[facility] Co de Phone Number [facility] documented in this encounter Visit Diagnoses Not on filedocumented in this encounter Care Teams Research And Development Engineer Relationship Specialty Start Date End Date Manuel White MD [address] [place] [address] Radiation Oncology 09/24/[address] [place] [address] Administrative Aide 09/24/21 documented as of this encounter
--- OUTSIDE RECORDS SUMMARY | 2024-07-09 11:01 | XMS_ITS | Encounter Summary ---
Author Organization [facility] Address [address] [place] [address] Care Team Providers Care Cut Off Sawyer [place] Name Role Phone Unavailable Primary Care Provider Unavailabl e Reason for Visit * Reason Comments Prostate Cancer OTV Encounter Details Date Type Department Care Team (Latest Contact Info) Description 09/19/2021 10:15 EST - 09/19/2021 23:59 EST Hospital Encounter [facility] Cancer Treatment [place] [address] [place] [address] Discharge Disposition: Home or Self Care Social [...] Sign Reading Time Taken Comments Blood Pressure 127/71 09/19/2021 1106 EST Pulse 67 09/19/2021 1106 EST Temperature - - Respiratory Rate 16 09/19/2021 1106 EST Oxygen Saturation - - Inhaled Oxygen Concentration - - Weight - [...] or Self Care documented in this encounter Progress Notes * May Ko - 09/19/2021 1015 EST Initial Nutrition Assessment S: Patient denies changes in appetite, weight, bowel movements. Reports typical intakes of two meals daily. Breakfast: Bran cereal with lactose free milk and banana Dinner: Sweet potato, chicken sausage Snacks: Peanut Butter Ritz Crackers, Grapes, Sardines, Ice Cream. Doesn't drink coffee or tea. Coke Zero if he is going to have a caffeinated beverage. Patient expressed concern about getting adequate Calcium and Vitamin D. His multivitamin contains 200mg of Calcium and 40 mcg Vitamin D. Takes additional calcium citrate. (~1/2 teaspoon per day). Avoids calcium carbonate due to concerns about constipation. O: Past Medical History: Diagnosis Date ??? Asthma ??? Prostate cancer ([facility]) ([facility]) Recent weight changes: Wt Readings from Last 10 Encounters: 09/05/21 87.5 kg (193 lb) 08/27/21 85.7 kg (189 lb) 03/29/16 98.4 kg (217 lb) 02/21/16 (!) 102.1 kg (225 lb) . Significant Laboratory Data: Lab Results Component Value Date/Time WBC 6.89 09/05/2021 14:33 HGB 14.6 09/05/2021 14:33 HCT 42.4 09/05/2021 14:33 MCV 90 09/05/2021 14:33 NA 138 09/05/2021 14:33 K 4.4 09/05/2021 14:33 CO2 27 09/05/2021 14:33 CL 100 09/05/2021 14:33 BUN 18 09/05/2021 14:33 CREATININE 0.86 09/05/2021 14:33 SERGLU 96 09/05/2021 14:33 CALCIUM 9.3 09/05/2021 14:33 Nutritionally significant medications: multivitamin, calcium citrate Calories needed: 2005 kcal kcal/k Adj. BW Protein needed: 80g protein grams/k Adj. BW A: Pt is 75 y.o. male receiving radiation treatment for prostate cancer. Also receiving lupron therapy. We reviewed calcium sources (through supplementation and from dietary sources). Patient declined need for additional information on dietary sources of calcium. No other nutrition concerns identifiedduring assessment. P: -No new diet changes/recommendations -Patient to continue current calcium supplementation regimen -Follow up per patient request May Contreras MS, RD, CD, CNSC documented in this encounter Plan of Treatment Not on file documented as of this encounter Visit Diagnoses Not on filedocumented in this encounter
--- OUTSIDE RECORDS SUMMARY | 2024-07-09 11:01 | XMS_ITS | Encounter Summary ---
Author Organization [facility] Address [address] [place] [address] Care Team Providers Care Range Conservationist Name Role Phone Unavailable Primary Care Provider Unavailabl e Reason for Visit * Reason Comments Prostate Cancer Encounter Details Date Type Department Care Team (Late st Contact Info) Description 09/12/2021 Radiation Therapy Visit [facility] - [facility] - [facility] Cancer Treatment [place] [address] [place] [address] Manuel White MD [address] [place] [address] [address] [place] [address] Prostate cancer (HCC-CMS) (HCC) (HCC-CMS) [...] Progress Notes * Manuel White MD - 09/12/2021 1009 EST Images from the original note were not included. Radiation Oncology- On Treatment Visit On Treatment Visit Assessment:09/12/21 Ken Mckeon is currently receiving radiation therapy treatment and is being seen today for his weekly on treatment visit. Encounter Diagnosis: ICD-10-CM ICD-9-CM 1. Prostate cancer (HCC-CMS) (HCC) C61 185 Radiation Therapy Dose: 400 cGy Radiation Treatments Active Plans [id number] Most recent treatment: Dose planned: 200 cGy (fraction 2 on 09/12/2021) Total: Dose planned: 5,000 cGy (25 fractions) Elapsed Days: 1 Reference Points PELVIC NODES Most recent treatment: Dose given: 180 cGy (on 09/12/2021) Total: Dose given: 360 cGy Elapsed Days: 1 PROST BED TOTAL Most recent treatment: Dose given: 200 cGy (on 09/12/2021) Total: Dose given: 400 cGy Elapsed Days: 1 PROSTATE BED Most recent treatment: Dose given: 200 cGy (on 09/12/2021) Total: Dose given: 400 cGy Elapsed Days: 1 RT ILIAC NODE Most recent treatment: Dose given: 180 cGy (on 09/12/2021) Total: Dose given: 360 cGy Elapsed Days: 1 No flowsheet data found. Subjective Note: Night sweats with hot flashes started. Abiraterone started today per Dr. Espino. Pain: 0/10: Location:pelvis Physical Exam: There were no vitals filed for this visit. Wt Readings from Last 3 Encounters: 09/05/21 87.5 kg (193 lb) 08/27/21 85.7 kg (189 lb) 03/29/16 98.4 kg (217 lb) ECOG Performance Status: (0) Fully active, able to carry on all predisease performance without restriction Appears well. Treatment Related Toxicity: Just started. Current Labs: Lab Results Component Value Date WBC 6.89 09/05/2021 HGB 14.6 09/05/2021 HCT 42.4 09/05/2021 PLT 150 09/05/2021 ALT 20 09/05/2021 AST 42 09/05/2021 NA 138 09/05/2021 K 4.4 09/05/2021 CL 100 09/05/2021 CREATININE 0.86 09/05/2021 BUN 18 09/05/2021 CO2 27 09/05/2021 Medication Reconciliation: Medications were reviewed with the patient. Impression: Ken Mckeon is tolerating treatment well having started Plan: Reviewed treatment set up notes. Checked and approved portal images/CBCT. Reviewed dose delivery treatment parameters and deemed appropriate. After assessing the patient's response to treatment thus far, we will continue with radiation treatments as planned. Manuel White MD Radiation Oncology-[facility] (p) [phone] / (f) [phone] documented in this encounter Plan of Treatment Not on file documented as of this encounter Visit Diagnoses Diagnosis Prostate cancer (HCC-CMS)- Primary Malignant neoplasm of prostate documented in this encounter
--- OUTSIDE RECORDS SUMMARY | 2024-07-09 11:01 | XMS_ITS | Encounter Summary ---
Author Organization [facility] Address [address] [place] [address] Care Team Providers Care Branch Director Name Role Phone Manuel White MD Unavailable [phone] Marcella Waller Unavailable Encounter Details Date Type Department Care Team (Latest Contact Info) Description 09/28/2021 10:15 EST - 09/28/2021 23:59 EST Hospital Encounter [facility] Cancer Treatment [place] [address] [place] [address] Discharge Disposition: Home or Self Care Social [...] on filedocumented in this encounter Care Teams Branch Director Relationship Specialty Start Date End Date Manuel White MD [address] [place] [phone] Radiation Oncology 09/24/[address] [place] [address] Community Service Officer Coordinator 09/24/21 documented as of this encounter
--- OUTSIDE RECORDS SUMMARY | 2024-07-09 11:01 | XMS_ITS | Encounter Summary ---
Author Organization [facility] Address [address] [place] [address] Care Team Providers Care Licensed Nurse Practitioner Name Role Phone Manuel White MD Unavailable [phone] Marcella Waller Unavailable Encounter Details Date Type Department Care Team (Latest Contact Info) Description 10/02/2021 9:30 EST - 10/02/2021 23:59 EST Hospital Encounter [facility] Cancer Treatment [place] [address] [place] [address] Discharge Disposition: Home or Self Care Social [...] on filedocumented in this encounter Care Teams Licensed Nurse Practitioner Relationship Specialty Start Date End Date Manuel White MD [address] [place] [phone] Radiation Oncology 09/24/21 Marcella Waller [address] [place] [address],[address] [place] [address] Pigment Weigher 09/24/21 documented as of this encounter
--- OUTSIDE RECORDS SUMMARY | 2024-07-09 11:01 | XMS_ITS | Encounter Summary ---
Author Organization [facility] Address [address] [place] [address] Care Team Providers Care Technical Communication Teacher Name Role Phone Manuel White MD Unavailable [phone] Marcella Waller Unavailable Encounter Details Date Type Department Care Team (Late st Contact Info) Description 10/03/2021 Results Only [facility] Radiation Oncology - [facility] [address] [place], [place] [id number] Unknown, Provider, Social History Tobacco Use Types [...] Comments RAD ONC ARIA SESSION SUMMARY Routine 10/03/2021 9:45 EST documented in this encounter Results * RAD ONC ARIA SESSION SUMMARY (10/03/2021 9:45 EST) Course ID C1 [facility] RADIATION ONCOLOGY Course First Treatment Date 09/11/2021 10:37 [facility] RAD[facility]COLOG[facility] Course Last Treatment Date 10/03/2021 9:45 [facility] RAD[facility]COLOG[facility] Course Elapsed Days 22 [facility]COL[facility] Reference Point ID PELVIC NODES [facility] Reference Point Dosage Given to Date 30.6 Gy [facility] RAD[facility]ATION ONCOLOG[facility] Reference Point Session Dosage Given 1.8 Gy [facility] RAD[facility]ATION ONCOLOG[facility] Reference Point ID PROST BED TOTAL [facility] RAD[facility]ATION [facility]COLOG[facility] Reference Point Dosage Given to Date 34 Gy [facility] RADIATION ONCOLOGY Reference Point Session Dosage Given 2 Gy [facility] RADIATION ONCOLOGY Reference Point ID PROSTATE BED [facility] RADIATION ONCOLOGY Reference Point Dosage Given to Date 34 Gy [facility] RADIATION ONCOLOGY Reference Point Session Dosage Given 2 Gy [facility] RADIATION ONCOLOGY Reference Point ID RT ILIAC NODE [facility] RADIATION ONCOLOG[facility] Reference Point Dosage Given to Date 30.6 Gy [facility] RADIATION ONCOLOGY Reference Point Session Dosage Given 1.8 Gy [facility] RADIATION ONCOLOGY Plan ID [id number] [facility] RADIATION ONCOLOGY Plan Name [id number] [facility] RADIATION ONCOLOGY Plan Fractions Treated to Date 17 [facility] RADIATION ONCOLOGY Plan Total Fractions Prescribed 25 [facility] RADIATION ONCOLOGY Plan Prescribed Dose Per Fraction 2 Gy [facility] RADIATION ONCOLOGY Plan Total Prescribed Dose 5,000 cGy [facility] RADIATION ONCOLOGY Plan Primary Reference Point PROSTATE BED [facility] RADIATION ONCOLOGY 10/03/2021 9:45 EST us Provider Unknown RADIATION ONCOLOGY ORDERABLE S Final Result Performing Organization Address City/State/[facility] Co de Phone Number [facility] documented in this encounter Visit Diagnoses Not on filedocumented in this encounter Care Teams Technical Communication Teacher Relationship Specialty Start Date End Date Manuel White MD [address] [place] [phone] Radiation Oncology 09/24/21 Marcella Waller [address] [place] [address] Systems Accountant 09/24/21 documented as of this encounter
--- OUTSIDE RECORDS SUMMARY | 2024-07-09 11:01 | XMS_ITS | Encounter Summary ---
Author Organization [facility] Address [address] [place] [address] Care Team Providers Care Cold Molding Press Operator Name Role Phone Unavailable Primary Care Provider Unavailabl e Encounter Details Date Type Department Care Team (Late st Contact Info) Description 09/18/2021 Results Only [facility] Radiation Oncology - [facility] [address] [place] [address] Unknown, Provider, MD Social History Tobacco Use Types Packs/Day Years [...] Comments RAD ONC ARIA SESSION SUMMARY Routine 09/18/2021 10:31 EST documented in this encounter Results * RAD ONC ARIA SESSION SUMMARY (09/18/2021 10:31 EST) Course ID C1 ARIA RADIATION ONCOLOGY Course First Treatment Date 09/11/2021 10:37 ARIA RADIATION ONCOLOGY Course Last Treatment Date 09/18/2021 10:31 ARIA RADIATION ONCOLOGY Course Elapsed Days 7 ARIA RADIATION ONCOLOGY Reference Point ID PELVIC NODES ARIA RADIATION ONCOLOGY Reference Point Dosage Given to Date 10.8 Gy ARIA RADIATION ONCOLOGY Reference Point Session [...] ONCOLOGY Reference Point Dosage Given to Date 10.8 Gy ARIA RADIATION ONCOLOGY Reference Point Session [...] Reference Point PROSTATE BED ARIA RADIATION ONCOLOGY 09/18/2021 10:3 1 EST us Provider Unknown RADIATION ONCOLOGY ORDERABLE S Final Result ARIA RADIATION ONCOLOGY documented in this encounter Visit Diagnoses Not on filedocumented in this encounter
--- OUTSIDE RECORDS SUMMARY | 2024-07-09 11:01 | XMS_ITS | Encounter Summary ---
Author Organization [facility] Address [address] [place] [address] Care Team Providers Care Imaging Nurse Name Role Phone Manuel White MD Unavailable [phone] Marcella Waller Unavailable Encounter Details Date Type Department Care Team (Late st Contact Info) Description 09/27/2021 Results Only [facility] Radiation Oncology - [facility] [address] [place], [place] [id number] Unknown, Provider, Social History Tobacco Use Types [...] Comments RAD ONC ARIA SESSION SUMMARY Routine 09/27/2021 15:23 EST documented in this encounter Results * RAD ONC ARIA SESSION SUMMARY (09/27/2021 15:23 EST) Course ID C1 ARIA RADIATION ONCOLOGY Course First Treatment Date 09/11/2021 10:37 ARIA RADIATION ONCOLOGY Course Last Treatment Date 09/27/2021 15:24 ARIA RADIATION ONCOLOGY Course Elapsed Days 16 ARIA RADIATION ONCOLOGY Reference Point ID PELVIC NODES ARIA RADIATION ONCOLOGY Reference Point Dosage Given to Date 23.4 Gy ARIA RADIATION ONCOLOGY Reference Point Session Dosage Given 1.8 Gy ARIA RADIATION ONCOLOGY Reference Point ID PROST BED TOTAL ARIA RADIATION ONCOLOGY Reference Point Dosage Given to Date 26 Gy ARIA RADIATION ONCOLOGY Reference Point Session Dosage Given 2 Gy ARIA RADIATION ONCOLOGY Reference Point ID PROSTATE BED ARIA RADIATION ONCOLOGY Reference Point Dosage Given to Date 26 Gy ARIA RADIATION ONCOLOGY Reference Point Session Dosage Given 2 Gy ARIA RADIATION ONCOLOGY Reference Point ID RT ILIAC NODE ARIA RADIATION ONCOLOGY Reference Point Dosage Given to Date 23.4 Gy ARIA RADIATION ONCOLOGY Reference Point Session Dosage Given 1.8 Gy ARIA RADIATION ONCOLOGY Plan ID [id number] ARIA RADIATION ONCOLOGY Plan Name [id number] ARIA RADIATION ONCOLOGY Plan Fractions Treated to Date 13 ARIA RADIATION ONCOLOGY Plan Total Fractions Prescribed 25 ARIA RADIATION ONCOLOGY Plan Prescribed Dose Per Fraction 2 Gy ARIA RADIATION ONCOLOGY Plan Total Prescribed Dose 5,000 cGy ARIA RADIATION ONCOLOGY Plan Primary Reference Point PROSTATE BED ARIA RADIATION ONCOLOGY 09/27/2021 15:2 3 EST us Provider Unknown RADIATION ONCOLOGY ORDERABLE S Final Result Performing Organization Address City/State/[facility] Co de Phone Number ARIA RADIATION ONCOLOGY documented in this encounter Visit Diagnoses Not on filedocumented in this encounter Care Teams Imaging Nurse Relationship Specialty Start Date End Date Manuel White MD [address] [place] [address] Radiation Oncology 09/24/21 Marcella Waller [address] [place] [address] Order Packer 09/24/21 documented as of this encounter
--- OUTSIDE RECORDS SUMMARY | 2024-07-09 11:01 | XMS_ITS | Encounter Summary ---
Author Organization [facility] Address [address] [place] [address] Care Team Providers Care Dinkey Operator Name Role Phone Manuel White MD Unavailable [phone] Marcella Waller Unavailable Encounter Details Date Type Department Care Team (Latest Contact Info) Description 09/25/2021 10:15 EST - 09/25/2021 23:59 EST Hospital Encounter [facility] - [facility] Cancer Treatment [place] [address] [place] [address] Discharge Disposition: Home or Self Care Social [...] Sign Reading Time Taken Comments Blood Pressure 107/58 09/25/2021 1059 EST Pulse 67 09/25/2021 1059 EST Temperature - - Respiratory Rate 16 09/25/2021 1059 EST Oxygen Saturation - - Inhaled Oxygen Concentration - - Weight 87.9 kg (193 lb 12.8 oz) 09/25/2021 1059 EST Height - - Body Mass Index 27.41 03/29/2016 0847 EDT documented in this encounter [...] on filedocumented in this encounter Care Teams Dinkey Operator Relationship Specialty Start Date End Date Manuel White MD [address] [place] [phone] Radiation Oncology 09/24/21 Marcella Waller [address] [place] [address],[address] [place] [address] Exhibitions And Collections Manager 09/24/21 documented as of this encounter
--- OUTSIDE RECORDS SUMMARY | 2024-07-09 11:01 | XMS_ITS | Encounter Summary ---
Author Organization [facility] Address [address] [place] [address] Care Team Providers Care Employment Service Specialist Name Role Phone Unavailable Primary Care Provider Unavailabl e Encounter Details Date Type Department Care Team (Late st Contact Info) Description 09/17/2021 Results Only [facility] Radiation Oncology - [facility] [address] [place] [address] Unknown, Provider, MD Social History Tobacco Use [...] Comments RAD ONC ARIA SESSION SUMMARY Routine 09/17/2021 10:33 EST documented in this encounter Results * RAD ONC ARIA SESSION SUMMARY (09/17/2021 10:33 EST) Pathologist [facility] Course ID C1 ARIA RADIATION ONCOLOGY Course First Treatment Date 09/11/2021 10:37 ARIA RADIATION ONCOLOGY Course Last Treatment Date 09/17/2021 10:33 ARIA RADIATION ONCOLOGY Course Elapsed Days 6 ARIA RADIATION ONCOLOGY Reference Point ID PELVIC NODES ARIA RADIATION ONCOLOGY Reference Point Dosage Given to Date 9 Gy ARIA RADIATION ONCOLOGY Reference Point Session [...] ONCOLOGY Reference Point Dosage Given to Date 9 Gy ARIA RADIATION ONCOLOGY Reference Point Session [...] Reference Point PROSTATE BED ARIA RADIATION ONCOLOGY 09/17/2021 10:3 3 EST us Provider Unknown RADIATION ONCOLOGY ORDERABLE S Final Result ARIA RADIATION ONCOLOGY documented in this encounter Visit Diagnoses Not on filedocumented in this encounter
--- OUTSIDE RECORDS SUMMARY | 2024-07-09 11:01 | XMS_ITS | Encounter Summary ---
Author Organization [facility] Address [address] [place] [address] Care Team Providers Care Irrigator Overhead Name Role Phone Unavailable Primary Care Provider Unavailabl e Encounter Details Date Type Department Care Team (Late st Contact Info) Description 09/20/2021 Results Only [facility] Radiation Oncology - [facility] [address] [place] [address] Unknown, Provider, MD Social History Tobacco Use [...] Comments RAD ONC ARIA SESSION SUMMARY Routine 09/20/2021 10:47 EST documented in this encounter Results * RAD ONC ARIA SESSION SUMMARY (09/20/2021 10:47 EST) [facility] Course ID C1 ARIA RADIATION ONCOLOGY Course First Treatment Date 09/11/2021 10:37 ARIA RADIATION ONCOLOGY Course Last Treatment Date 09/20/2021 10:47 ARIA RADIATION ONCOLOGY Course Elapsed Days 9 ARIA RADIATION ONCOLOGY Reference Point ID PELVIC NODES ARIA RADIATION ONCOLOGY Reference Point Dosage Given to Date 14.4 Gy ARIA RADIATION ONCOLOGY Reference Point Session Dosage Given 1.8 Gy ARIA RADIATION ONCOLOGY Reference Point ID PROST BED TOTAL ARIA RADIATION ONCOLOGY Reference Point Dosage Given to Date 16 Gy ARIA RADIATION ONCOLOGY Reference Point Session Dosage Given 2 Gy ARIA RADIATION ONCOLOGY Reference Point ID PROSTATE BED ARIA RADIATION ONCOLOGY Reference Point Dosage Given to Date 16 Gy ARIA RADIATION ONCOLOGY Reference Point Session Dosage Given 2 Gy ARIA RADIATION ONCOLOGY Reference Point ID RT ILIAC NODE ARIA RADIATION ONCOLOGY Reference Point Dosage Given to Date 14.4 Gy ARIA RADIATION ONCOLOGY Reference Point Session Dosage Given 1.8 Gy ARIA RADIATION ONCOLOGY Plan ID [id number] ARIA RADIATION ONCOLOGY Plan Name [id number] ARIA RADIATION ONCOLOGY Plan Fractions Treated to Date 8 ARIA RADIATION ONCOLOGY Plan Total Fractions Prescribed 25 ARIA RADIATION ONCOLOGY Plan Prescribed Dose Per Fraction 2 Gy ARIA RADIATION ONCOLOGY Plan Total Prescribed Dose 5,000 cGy ARIA RADIATION ONCOLOGY Plan Primary Reference Point PROSTATE BED ARIA RADIATION ONCOLOGY 09/20/2021 10:4 7 EST us Provider Unknown RADIATION ONCOLOGY ORDERABLE S Final Result ARIA RADIATION ONCOLOGY documented in this encounter Visit Diagnoses Not on filedocumented in this encounter
--- OUTSIDE RECORDS SUMMARY | 2024-07-09 11:01 | XMS_ITS | Encounter Summary ---
Author Organization [facility] Address [address] [place] [address] Care Team Providers Care Envelope Press Operator Name Role Phone Unavailable Primary Care Provider Unavailabl e Encounter Details Date Type Department Care Team (Latest Contact Info) Description 09/13/2021 9:45 EST - 09/13/2021 23:59 EST Hospital Encounter [facility] - [facility] - [facility] [place] [address] [place] [address] Discharge Disposition: Home or Self Care Social [...]
--- OUTSIDE RECORDS SUMMARY | 2024-07-09 11:01 | XMS_ITS | Encounter Summary ---
Author Organization [facility] Address [address] [place] [address] Care Team Providers Care News Assignment Editor Name Role Phone Manuel White MD Unavailable [phone] Marcella Waller Unavailable Encounter Details Date Type Department Care Team (Latest Contact Info) Description 10/03/2021 9:30 EST - 10/03/2021 23:59 EST Hospital Encounter [facility] - [facility] [place] [address] [place] [address] Discharge Disposition: Home or Self Care Social [...] on filedocumented in this encounter Care Teams News Assignment Editor Relationship Specialty Start Date End Date Manuel White MD [address] [place] [phone] Radiation Oncology 09/24/21 Marcella Waller [address] [place] [address],[address] [place] [address] Community Relations Advisor 09/24/21 documented as of this encounter
--- OUTSIDE RECORDS SUMMARY | 2024-07-09 11:01 | XMS_ITS | Encounter Summary ---
Author Organization [facility] Address [address] [place] [address] Care Team Providers Care Grab Setter Name Role Phone Manuel White MD Unavailable [phone] Marcella Waller Unavailable Encounter Details Date Type Department Care Team (Latest Contact Info) Description 09/27/2021 15:00 EST - 09/27/2021 23:59 EST Hospital Encounter [facility] - [facility] Cancer Treatment [place] [address] [place] [address] Discharge Disposition: Home or Self Care Social [...] on filedocumented in this encounter Care Teams Grab Setter Relationship Specialty Start Date End Date Manuel White MD [address] [place] [phone] Radiation Oncology 09/24/[address] [place] [address] Principal Trainer 09/24/21 documented as of this encounter
--- OUTSIDE RECORDS SUMMARY | 2024-07-09 11:01 | XMS_ITS | Encounter Summary ---
Author Organization [facility] Address [address] [place] [address] Care Team Providers Care Hydroelectric Plant Electrical Engineer Name Role Phone Manuel White MD Unavailable [phone] Marcella Waller Unavailable Encounter Details Date Type Department Care Team (Late st Contact Info) Description 09/26/2021 Results Only [facility] Radiation Oncology - [facility] [address] [place], [place] [address] Unknown, Provider, Social History Tobacco Use Types [...] Comments RAD ONC ARIA SESSION SUMMARY Routine 09/26/2021 10:26 EST documented in this encounter Results * RAD ONC ARIA SESSION SUMMARY (09/26/2021 10:26 EST) Course ID C1 ARIA RADIATION ONCOLOGY Course First Treatment Date 09/11/2021 10:37 ARIA RADIATION ONCOLOGY Course Last Treatment Date 09/26/2021 10:26 ARIA RADIATION ONCOLOGY Course Elapsed Days 15 ARIA RADIATION ONCOLOGY Reference Point ID PELVIC NODES ARIA RADIATION ONCOLOGY Reference Point Dosage Given to Date 21.6 Gy ARIA RADIATION ONCOLOGY Reference Point Session Dosage Given 1.8 Gy ARIA RADIATION ONCOLOGY Reference Point ID PROST BED TOTAL ARIA RADIATION ONCOLOGY Reference Point Dosage Given to Date 24 Gy ARIA RADIATION ONCOLOGY Reference Point Session Dosage Given 2 Gy ARIA RADIATION ONCOLOGY Reference Point ID PROSTATE BED ARIA RADIATION ONCOLOGY Reference Point Dosage Given to Date 24 Gy ARIA RADIATION ONCOLOGY Reference Point Session Dosage Given 2 Gy ARIA RADIATION ONCOLOGY Reference Point ID RT ILIAC NODE ARIA RADIATION ONCOLOGY Reference Point Dosage Given to Date 21.6 Gy ARIA RADIATION ONCOLOGY Reference Point Session Dosage Given 1.8 Gy ARIA RADIATION ONCOLOGY Plan ID [id number] ARIA RADIATION ONCOLOGY Plan Name [id number] ARIA RADIATION ONCOLOGY Plan Fractions Treated to Date 12 ARIA RADIATION ONCOLOGY Plan Total Fractions Prescribed 25 ARIA RADIATION ONCOLOGY Plan Prescribed Dose Per Fraction 2 Gy ARIA RADIATION ONCOLOGY Plan Total Prescribed Dose 5,000 cGy ARIA RADIATION ONCOLOGY Plan Primary Reference Point PROSTATE BED ARIA RADIATION ONCOLOGY 09/26/2021 10:2 6 EST us Provider Unknown RADIATION ONCOLOGY ORDERABLE S Final Result Performing Organization Address City/State/[facility] Co de Phone Number ARIA RADIATION ONCOLOGY documented in this encounter Visit Diagnoses Not on filedocumented in this encounter Care Teams Hydroelectric Plant Electrical Engineer Relationship Specialty Start Date End Date Manuel White MD [address] [place] [address] Radiation Oncology 09/24/21 Marcella Waller [address] [place] [address] Buildings And Grounds Director 09/24/21 documented as of this encounter
--- OUTSIDE RECORDS SUMMARY | 2024-07-09 11:01 | XMS_ITS | Encounter Summary ---
Author Organization [facility] Address [address] [place] [address] Care Team Providers Care Parts Professional Name Role Phone Unavailable Primary Care Provider Unavailabl e Encounter Details Date Type Department Care Team (Late st Contact Info) Description 09/14/2021 Results Only [facility] Radiation Oncology - [facility] [address] [place] [address] Unknown, Provider, MD Social History Tobacco Use [...] Comments RAD ONC ARIA SESSION SUMMARY Routine 09/14/2021 9:56 EST documented in this encounter Results * RAD ONC ARIA SESSION SUMMARY (09/14/2021 9:56 EST) [facility] Course ID C1 ARIA RADIATION ONCOLOGY Course First Treatment Date 09/11/2021 10:37 ARIA RADIATION ONCOLOGY Course Last Treatment Date 09/14/2021 9:56 ARIA RADIATION ONCOLOGY Course Elapsed Days 3 ARIA RADIATION ONCOLOGY Reference Point ID PELVIC NODES ARIA RADIATION ONCOLOGY Reference Point Dosage Given to Date 7.2 Gy ARIA RADIATION ONCOLOGY Reference Point Session [...] ONCOLOGY Reference Point Dosage Given to Date 7.2 Gy ARIA RADIATION ONCOLOGY Reference Point Session [...] Reference Point PROSTATE BED ARIA RADIATION ONCOLOGY 09/14/2021 9:56 EST us Provider Unknown RADIATION ONCOLOGY ORDERABLE S Final Result ARIA RADIATION ONCOLOGY documented in this encounter Visit Diagnoses Not on filedocumented in this encounter
--- OUTSIDE RECORDS SUMMARY | 2024-07-09 11:01 | XMS_ITS | Encounter Summary ---
Author Organization [facility] Address [address] [place] [address] Care Team Providers Care Multiple Spindle Screw Machine Operator Name Role Phone Unavailable Primary Care Provider Unavailabl e Encounter Details Date Type Department Care Team (Latest Contact Info) Description 09/18/2021 10:15 EST - 09/18/2021 23:[address] [facility] - [facility] - [facility] Cancer Treatment [place] [address] [place] [address] Discharge Disposition: Home or Self Care Social [...]
--- OUTSIDE RECORDS SUMMARY | 2024-07-09 11:01 | XMS_ITS | Encounter Summary ---
Author Organization [facility] Address [address] [place] [address] Care Team Providers Care Classifier Tender Name Role Phone Manuel White MD Unavailable [phone] Marcella Waller Unavailable Encounter Details Date Type Department Care Team (Late st Contact Info) Description 09/28/2021 Results Only [facility] Radiation Oncology - [facility] [address] [place], [place] [address] Unknown, Provider, Social History Tobacco Use Types [...] Comments RAD ONC ARIA SESSION SUMMARY Routine 09/28/2021 10:38 EST documented in this encounter Results * RAD ONC ARIA SESSION SUMMARY (09/28/2021 10:38 EST) Course ID C1 ARIA RADIATION ONCOLOGY Course First Treatment Date 09/11/2021 10:37 ARIA RADIATION ONCOLOGY Course Last Treatment Date 09/28/2021 10:39 ARIA RADIATION ONCOLOGY Course Elapsed Days 17 ARIA RADIATION ONCOLOGY Reference Point ID PELVIC NODES ARIA RADIATION ONCOLOGY Reference Point Dosage Given to Date 25.2 Gy ARIA RADIATION ONCOLOGY Reference Point Session Dosage Given 1.8 Gy ARIA RADIATION ONCOLOGY Reference Point ID PROST BED TOTAL ARIA RADIATION ONCOLOGY Reference Point Dosage Given to Date 28 Gy ARIA RADIATION ONCOLOGY Reference Point Session Dosage Given 2 Gy ARIA RADIATION ONCOLOGY Reference Point ID PROSTATE BED ARIA RADIATION ONCOLOGY Reference Point Dosage Given to Date 28 Gy ARIA RADIATION ONCOLOGY Reference Point Session Dosage Given 2 Gy ARIA RADIATION ONCOLOGY Reference Point ID RT ILIAC NODE ARIA RADIATION ONCOLOGY Reference Point Dosage Given to Date 25.2 Gy ARIA RADIATION ONCOLOGY Reference Point Session Dosage Given 1.8 Gy ARIA RADIATION ONCOLOGY Plan ID [id number] ARIA RADIATION ONCOLOGY Plan Name [id number] ARIA RADIATION ONCOLOGY Plan Fractions Treated to Date 14 ARIA RADIATION ONCOLOGY Plan Total Fractions Prescribed 25 ARIA RADIATION ONCOLOGY Plan Prescribed Dose Per Fraction 2 Gy ARIA RADIATION ONCOLOGY Plan Total Prescribed Dose 5,000 cGy ARIA RADIATION ONCOLOGY Plan Primary Reference Point PROSTATE BED ARIA RADIATION ONCOLOGY 09/28/2021 10:3 8 EST us Provider Unknown RADIATION ONCOLOGY ORDERABLE S Final Result Performing Organization Address City/State/[facility] Co de Phone Number ARIA RADIATION ONCOLOGY documented in this encounter Visit Diagnoses Not on filedocumented in this encounter Care Teams Classifier Tender Relationship Specialty Start Date End Date Manuel White MD [address] [place] [address] Radiation Oncology 09/24/21 Marcella Waller [address] [place] [address] Petroleum Refinery Operator 09/24/21 documented as of this encounter
--- OUTSIDE RECORDS SUMMARY | 2024-07-09 11:01 | XMS_ITS | Encounter Summary ---
Author Organization [facility] Address [address] [place] [address] Care Team Providers Care Family Day Carer Name Role Phone Unavailable Primary Care Provider Unavailabl e Encounter Details Date Type Department Care Team (Late st Contact Info) Description 09/13/2021 Results Only [facility] Radiation Oncology - [facility] [address] [place] [address] Unknown, Provider, MD Social History Tobacco Use [...] Comments RAD ONC ARIA SESSION SUMMARY Routine 09/13/2021 10:01 EST documented in this encounter Results * RAD ONC ARIA SESSION SUMMARY (09/13/2021 10:01 EST) [facility] Course ID C1 ARIA RADIATION ONCOLOGY Course First Treatment Date 09/11/2021 10:37 ARIA RADIATION ONCOLOGY Course Last Treatment Date 09/13/2021 10:01 ARIA RADIATION ONCOLOGY Course Elapsed Days 2 ARIA RADIATION ONCOLOGY Reference Point ID PELVIC NODES ARIA RADIATION ONCOLOGY Reference Point Dosage Given to Date 5.4 Gy ARIA RADIATION ONCOLOGY Reference Point Session [...] ONCOLOGY Reference Point Dosage Given to Date 5.4 Gy ARIA RADIATION ONCOLOGY Reference Point Session [...] Reference Point PROSTATE BED ARIA RADIATION ONCOLOGY 09/13/2021 10:0 1 EST us Provider Unknown RADIATION ONCOLOGY ORDERABLE S Final Result ARIA RADIATION ONCOLOGY documented in this encounter Visit Diagnoses Not on filedocumented in this encounter
--- OUTSIDE RECORDS SUMMARY | 2024-07-09 11:01 | XMS_ITS | Encounter Summary ---
Author Organization [facility] Address [address] [place] [address] Care Team Providers Care Houseman Name Role Phone Manuel White MD Unavailable [phone] Marcella Waller Unavailable Reason for Visit * Reason Comments Prostate Cancer Encounter Details Date Type Department Care Team (Late st Contact Info) Description 10/03/2021 Radiation Therapy Visit [facility] Cancer Treatment [place] [address] [place] [address] Manuel White MD [address] [facility], [facility] [address] [place] [address] Prostate cancer (HCC-CMS) [...] Progress Notes * Manuel White MD - 10/03/2021 0955 EST Images from the original note were not included. Radiation Oncology- On Treatment Visit On Treatment Visit Assessment:10/03/21 Ken Mckeon is currently receiving radiation therapy treatment and is being seen today for his weekly on treatment visit. Encounter Diagnosis: ICD-10-CM ICD-9-CM 1. Prostate cancer (HCC-CMS) (HCC) C61 185 Radiation Therapy Dose: 3400 cGy Radiation Treatments Active Plans [id number] Most recent treatment: Dose planned: 200 cGy (fraction 17 on 10/03/2021) Total: Dose planned: 5,000 cGy (25 fractions) Elapsed Days: 22 Reference Points PELVIC NODES Most recent treatment: Dose given: 180 cGy (on 10/03/2021) Total: Dose given: 3,060 cGy Elapsed Days: 22 PROST BED TOTAL Most recent treatment: Dose given: 200 cGy (on 10/03/2021) Total: Dose given: 3,400 cGy Elapsed Days: 22 PROSTATE BED Most recent treatment: Dose given: 200 cGy (on 10/03/2021) Total: Dose given: 3,400 cGy Elapsed Days: 22 RT ILIAC NODE Most recent treatment: Dose given: 180 cGy (on 10/03/2021) Total: Dose given: 3,060 cGy Elapsed Days: 22 No flowsheet data found. 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 Wt Readings from Last 3 Encounters: 10/01/21 87.9 kg (193 lb 12.8 oz) 09/27/21 87.5 kg (193 lb) 09/25/21 87.9 kg (193 lb 12.8 oz) ECOG Performance Status: (0) Fully active, able to carry on all predisease performance without restriction deferred Treatment Related Toxicity: Hot flashes Radiation Fatigue: [...] Impression: Ken Mckeon is tolerating treatment well with hot flashes Plan: Reviewed treatment set up notes. Checked and approved portal images/CBCT. Reviewed dose delivery treatment parameters and deemed appropriate. After assessing the patient's response to treatment thus far, we will continue with radiation treatments as planned. Manuel White MD Radiation Oncology-[facility] (p) [phone] / (f) [phone] documented in this encounter Plan of Treatment Not on file documented as of this encounter Visit Diagnoses Diagnosis Prostate cancer (HCC-CMS)- Primary Malignant neoplasm of prostate documented in this encounter Care Teams Houseman Relationship Specialty Start Date End Date Manuel White MD [address] [place] [phone] Radiation Oncology 09/24/[address] [place] [address] Exploitation Analyst 09/24/21 documented as of this encounter
--- OUTSIDE RECORDS SUMMARY | 2024-07-09 11:01 | XMS_ITS | Encounter Summary ---
Author Organization [facility] Address [address] [place] [address] Care Team Providers Care Primer Assembler Name Role Phone Manuel White MD Unavailable [phone] Marcella Waller Unavailable Reason for Visit * Reason Comments Prostate Cancer OTV Encounter Details Date Type Department Care Team (Latest Contact Info) Description 10/01/2021 9:30 EST - 10/01/2021 23:59 EST Hospital Encounter [facility] Treatment [place] [address] [place] [address] Discharge Disposition: Home or Self Care Social [...] Sign Reading Time Taken Comments Blood Pressure 133/71 10/01/2021 0959 EST Pulse 66 10/01/2021 0959 EST Temperature - - Respiratory Rate 16 10/01/2021 0959 EST Oxygen Saturation - - Inhaled Oxygen Concentration - - Weight 87.9 kg (193 lb 12.8 oz) 10/01/2021 0959 EST Height - - Body Mass Index [...] for 90 days. 30 Tablet 09/05/2021 10/02/2021 senna (SENOKOT) 8.6 mg tabletIndications :constipation Take 1 Tablet by mouth daily. 11/19/2021 documented as of this encounter Discharge Disposition Disposition Code Departure Means Destination Home or Self Care documented in this encounter Plan of Treatment Not on file documented as of this encounter Visit Diagnoses Not on filedocumented in this encounter Historical Medications * This list may reflect changes made after this encounter. senna (SENOKOT) 8.6 mg tabletIndications :constipation Take 1 Tablet by mouth daily. 11/19/2021 cholecalciferol, vitamin D3, (VITAMIN D3 ORAL) Take 2,000 Int'l Units by mouth daily. 11/19/2021 added in this encounter Care Teams Primer Assembler Relationship Specialty Start Date End Date Manuel White MD [address] [place] [phone] Radiation Oncology 09/24/[address] [place] [phone] Supply Chain Project Manager 09/24/21 documented as of this encounter
--- OUTSIDE RECORDS SUMMARY | 2024-07-09 11:01 | XMS_ITS | Encounter Summary ---
Author Organization [facility] Address [address] [place] [address] Care Team Providers Care Housing Grant Analyst Name Role Phone Unavailable Primary Care Provider Unavailabl e Reason for Visit * Reason Comments Prostate Cancer Encounter Details Date Type Department Care Team (Late st Contact Info) Description 09/19/2021 Radiation Therapy Visit [facility] [place] [address] [place] [address] Manuel White MD [address] [place] [address] [address] [place] [address] Prostate cancer (HCC-CMS) (HCC) (HCC-CMS) [...] Progress Notes * Manuel White MD - 09/19/2021 1048 EST Images from the original note were not included. Radiation Oncology- On Treatment Visit On Treatment Visit Assessment:09/19/21 Ken Mckeon is currently receiving radiation therapy treatment and is being seen today for his weekly on treatment visit. Encounter Diagnosis: ICD-10-CM ICD-9-CM 1. Prostate cancer (HCC-CMS) (HCC) C61 185 Radiation Therapy Dose: 1400 cGy Radiation Treatments Active Plans [id number] Most recent treatment: Dose planned: 200 cGy (fraction 7 on 09/19/2021) Total: Dose planned: 5,000 cGy (25 fractions) Elapsed Days: 8 Reference Points PELVIC NODES Most recent treatment: Dose given: 180 cGy (on 09/19/2021) Total: Dose given: 1,260 cGy Elapsed Days: 8 PROST BED TOTAL Most recent treatment: Dose given: 200 cGy (on 09/19/2021) Total: Dose given: 1,400 cGy Elapsed Days: 8 PROSTATE BED Most recent treatment: Dose given: 200 cGy (on 09/19/2021) Total: Dose given: 1,400 cGy Elapsed Days: 8 RT ILIAC NODE Most recent treatment: Dose given: 180 cGy (on 09/19/2021) Total: Dose given: 1,260 cGy Elapsed Days: 8 No flowsheet data found. Subjective Note: Hot flashes and night sweats are significant and no change in urinary pattern. Abiraterone in AM Pain: 0/10: Location:prostate Physical Exam: There were no vitals filed for this visit. Wt Readings from Last 3 Encounters: 09/05/21 87.5 kg (193 lb) 08/27/21 85.7 kg (189 lb) 03/29/16 98.4 kg (217 lb) ECOG Performance Status: (0) Fully active, able to carry on all predisease performance without restriction Appears well Treatment Related Toxicity: Radiation Dermatitis: (0) No reaction. Radiation Fatigue: (1) Fatigue relieved by rest [...] treatments as planned. Manuel White MD Radiation Oncology-[facility] (p) [phone] / (f) [phone] documented in this encounter Plan of Treatment Not on file documented as of this encounter Visit Diagnoses Diagnosis Prostate cancer ([facility])- Primary Malignant neoplasm of prostate documented in this encounter
--- OUTSIDE RECORDS SUMMARY | 2024-07-09 11:01 | XMS_ITS | Encounter Summary ---
Author Organization [facility] Address [address] [place] [address] Care Team Providers Care Hospitality Director Name Role Phone Manuel White MD Unavailable [phone] Marcella Waller Unavailable Encounter Details Date Type Department Care Team (Latest Contact Info) Description 09/24/2021 10:15 EST - 09/24/2021 23:59 EST Hospital Encounter [facility] Cancer Treatment [place] [address] [place] [address] Discharge Disposition: Home or Self Care Social [...] on filedocumented in this encounter Care Teams Hospitality Director Relationship Specialty Start Date End Date Manuel White MD [address] [place] [phone] Radiation Oncology 09/24/[address] [place] [address] Annual Giving Manager 09/24/21 documented as of this encounter
--- OUTSIDE RECORDS SUMMARY | 2024-07-09 11:01 | XMS_ITS | Encounter Summary ---
Author Organization [facility] Address [address] [place] [address] Care Team Providers Care Pe Teacher Name Role Phone Manuel White MD Unavailable [phone] Marcella Waller Unavailable Encounter Details Date Type Department Care Team (Late st Contact Info) Description 10/02/2021 Results Only [facility] Radiation Oncology - [facility] [address] [place], [place] [address] Unknown, Provider, Social History Tobacco Use Types [...] Comments RAD ONC ARIA SESSION SUMMARY Routine 10/02/2021 9:51 EST documented in this encounter Results * RAD ONC ARIA SESSION SUMMARY (10/02/2021 9:51 EST) Course ID C1 [facility] RADIATION ONCOLOGY Course First Treatment Date 09/11/2021 10:37 [facility]COL[facility] Course Last Treatment Date 10/02/2021 9:51 [facility] RAD[facility] ONCOLOG[facility] Course Elapsed Days 21 [facility]COL[facility] Reference Point ID PELVIC NODES [facility]COLOG[facility] Reference Point Dosage Given to Date 28.8 Gy [facility] RADIATION ONCOLOGY Reference Point Session Dosage Given 1.8 Gy [facility] RAD[facility]ATION ONCOLOG[facility] Reference Point ID PROST BED TOTAL [facility] RAD[facility]ATION ONCOLOG[facility] Reference Point Dosage Given to Date 32 Gy [facility] RADIATION ONCOLOGY Reference Point Session Dosage Given 2 Gy [facility] RADIATION ONCOLOGY Reference Point ID PROSTATE BED [facility] RADIATION ONCOLOGY Reference Point Dosage Given to Date 32 Gy [facility] RADIATION ONCOLOGY Reference Point Session Dosage Given 2 Gy [facility] RADIATION ONCOLOGY Reference Point ID RT ILIAC NODE [facility] RADIATION ONCOLOGY Reference Point Dosage Given to Date 28.8 Gy [facility] RADIATION ONCOLOGY Reference Point Session Dosage Given 1.8 Gy [facility] RADIATION ONCOLOGY Plan ID [id number] [facility] RADIATION ONCOLOGY Plan Name [id number] [facility] RADIATION ONCOLOGY Plan Fractions Treated to Date 16 [facility] RADIATION ONCOLOGY Plan Total Fractions Prescribed 25 [facility] RADIATION ONCOLOGY Plan Prescribed Dose Per Fraction 2 Gy [facility] RADIATION ONCOLOGY Plan Total Prescribed Dose 5,000 cGy [facility] RADIATION ONCOLOGY Plan Primary Reference Point PROSTATE BED [facility] RADIATION ONCOLOGY 10/02/2021 9:51 EST us Provider Unknown RADIATION ONCOLOGY ORDERABLE S Final Result Performing Organization Address City/State/[facility] Co de Phone Number [facility]COL[facility] documented in this encounter Visit Diagnoses Not on filedocumented in this encounter Care Teams Pe Teacher Relationship Specialty Start Date End Date Manuel White MD [address] [place] [phone] Radiation Oncology 09/24/21 Marcella Waller [address] [place] [address] Director Report 09/24/21 documented as of this encounter
--- OUTSIDE RECORDS SUMMARY | 2024-07-09 11:01 | XMS_ITS | Encounter Summary ---
Author Organization [facility] Address [address] [place] [address] Care Team Providers Care Patient Transportation Driver Name Role Phone Unavailable Primary Care Provider Unavailabl e Encounter Details Date Type Department Care Team (Late st Contact Info) Description 09/12/2021 Results Only [facility] Radiation Oncology - [facility] [address] [place] [address] Unknown, Provider, MD Social History Tobacco Use [...] Comments RAD ONC ARIA SESSION SUMMARY Routine 09/12/2021 9:53 EST documented in this encounter Results * RAD ONC ARIA SESSION SUMMARY (09/12/2021 9:53 EST) [facility] Course ID C1 ARIA RADIATION ONCOLOGY Course First Treatment Date 09/11/2021 10:37 [facility] RADIATION ONCOLOGY Course Last Treatment Date 09/12/2021 9:53 [facility] RADIATION ONCOLOGY Course Elapsed Days 1 [facility] RAD[facility] ONCOLOG[facility] Reference Point ID PELVIC NODES [facility] RADIATION ONCOLOGY Reference Point Dosage Given to Date 3.6 Gy ARIA RADIATION ONCOLOGY Reference Point Session [...] ONCOLOGY Reference Point Dosage Given to Date 3.6 Gy [facility]A RADIATION ONCOLOGY Reference Point Session [...] Reference Point PROSTATE BED [facility] RADIATION ONCOLOGY 09/12/2021 9:53 EST us Provider Unknown RADIATION ONCOLOGY ORDERABLE S Final Result [facility]COLOG[facility] documented in this encounter Visit Diagnoses Not on filedocumented in this encounter
--- OUTSIDE RECORDS SUMMARY | 2024-07-09 11:01 | XMS_ITS | Encounter Summary ---
Author Organization [facility] Address [address] [place] [address] Care Team Providers Care Bull Riveter Name Role Phone Unavailable Primary Care Provider Unavailabl e Encounter Details Date Type Department Care Team (Late st Contact Info) Description 09/19/2021 Documentation Visit [facility] Cancer Treatment [place] [address] [place] [address] Anisha Munroe, RN Social History Tobacco Use Types Packs/Day [...] in this encounter Progress Notes * Anisha Munroe, RN - 09/19/2021 1107 EST Denies dysuria or increase in urinary frequency. Reports ongoing hotflashes, well tolerated even though the night sweats episodes are more inconvenient. documented in this encounter Plan of Treatment Not on file documented as of this encounter Visit Diagnoses Not on filedocumented in this encounter
--- OUTSIDE RECORDS SUMMARY | 2024-07-09 11:01 | XMS_ITS | Encounter Summary ---
Author Organization [facility] Address [address] [place] [address] Care Team Providers Care Filling Layer Up Name Role Phone Manuel White MD Unavailable [phone] Marcella Waller Unavailable Unknown, Provider Primary Care Provider Reji Ruvalcaba MD Primary Care Provider [phone] Jonathan Young MD Unavailable [phone] Encounter Details Date Type Department Care Team (Late st Contact Info) Description 09/28/2021 Telephone [facility] [address] [place] [address] Pat Sommer RN Social History Tobacco Use Types Packs/Day [...] * Telephone Encounter - Layla Lizarraga - 10/01/2021 1353 EST Ok, the referral goes to [facility] and they assign to the cardiology office. * Telephone Encounter - Pat Sommer RN - 10/01/2021 1006 EST LAYLA - Referral entered. * Telephone Encounter - Pat Sommer RN - 09/28/2021 1316 EST Images from the original note were not included. Ok to send referral. Message text You Lindsay Espino MD 1 hour ago (11:19) LINDSAY - Per 09/27/2021 - He has been tolerating the abiraterone relatively well. ??However, he has been having episodes of palpitations which could be seen with either Lupron or abiraterone. ??The palpitations are lasting for only a few minutes and he denies any associated symptoms such as chest pain, shortness of breath or dizziness. 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 Agreeable to send referral? ?? Message text Gregg Mckeon Eswar, MD 2 hours ago (11:04) [facility] Dr[address] Espino, After thinking more about our conversation pertaining to wearing a heart monitor patch and having you refer me to a Buttonhole Facer you'd recommend here in [place]/ [place]... I do want to pursue that as palpitations seem to be more frequent. Thank you, Gregg Mckeon documented in this encounter Plan of Treatment Not on file documented as of this encounter Visit Diagnoses Diagnosis Intermittent palpitations- Primary documented in this encounter Care Teams Filling Layer Up Relationship Specialty Start Date End Date Unknown, Provider, MD [address] [place] [address] PCP - General 12/10/21 12/28/21 Reji Adams MD [facility] [place] [address] [place] [address] PCP - General 12/29/21 Manuel White MD [address] [place] [phone] Radiation Oncology 09/24/21 Marcella Waller [address] [place] [address] Paper Tube Cutter 09/24/21 Jonathan Young MD [address] [place] [address] [place] [address] Buttonhole Facer Cardiovascular Disease 03/11/22 documented as of this encounter
--- OUTSIDE RECORDS SUMMARY | 2024-07-09 11:01 | XMS_ITS | Encounter Summary ---
Author Organization [facility] Address [address] [place] [address] Care Team Providers Care Basketball Player Name Role Phone Unavailable Primary Care Provider Unavailabl e Encounter Details Date Type Department Care Team (Late st Contact Info) Description 09/19/2021 Results Only [facility] Radiation Oncology - [facility] [address] [place] [address] Unknown, Provider, MD Social History Tobacco Use [...] Comments RAD ONC ARIA SESSION SUMMARY Routine 09/19/2021 10:39 EST documented in this encounter Results * RAD ONC ARIA SESSION SUMMARY (09/19/2021 10:39 EST) [facility] Course ID C1 ARIA RADIATION ONCOLOGY Course First Treatment Date 09/11/2021 10:37 [facility] RADIATION ONCOLOGY Course Last Treatment Date 09/19/2021 10:39 [facility] RADIATION ONCOLOGY Course Elapsed Days 8 [facility] RAD[facility]ATION ONCOLOGY Reference Point ID PELVIC NODES [facility] RADIATION ONCOLOGY Reference Point Dosage Given to Date 12.6 Gy [facility] RADIATION ONCOLOGY Reference Point Session [...] ONCOLOGY Reference Point Dosage Given to Date 12.6 Gy [facility] RADIATION ONCOLOGY Reference Point Session [...] Reference Point PROSTATE BED [facility] RADIATION ONCOLOGY 09/19/2021 10:3 9 EST us Provider Unknown RADIATION ONCOLOGY ORDERABLE S Final Result [facility] RADIATION ONCOLOG[facility] documented in this encounter Visit Diagnoses Not on filedocumented in this encounter
--- OUTSIDE RECORDS SUMMARY | 2024-07-09 11:01 | XMS_ITS | Encounter Summary ---
Author Organization [facility] Address [address] [place] [address] Care Team Providers Care Multi Spindle Operator Name Role Phone Manuel White MD Unavailable [phone] Marcella Waller Unavailable Encounter Details Date Type Department Care Team (Late st Contact Info) Description 09/25/2021 Results Only [facility] Radiation Oncology - [facility] [address] [place], [place] [id number] Unknown, Provider, Social History Tobacco Use Types [...] Comments RAD ONC ARIA SESSION SUMMARY Routine 09/25/2021 10:46 EST documented in this encounter Results * RAD ONC ARIA SESSION SUMMARY (09/25/2021 10:46 EST) Course ID C1 [facility] RADIATION ONCOLOGY Course First Treatment Date 09/11/2021 10:37 [facility] RADIATION ONCOLOGY Course Last Treatment Date 09/25/2021 10:46 [facility] RADIATION ONCOLOGY Course Elapsed Days 14 [facility] RAD[facility]ATION ONCOLOGY Reference Point ID PELVIC NODES [facility] RADIATION ONCOLOGY Reference Point Dosage Given to Date 19.8 Gy [facility] RADIATION ONCOLOGY Reference Point Session Dosage Given 1.8 Gy [facility] RADIATION ONCOLOGY Reference Point ID PROST BED TOTAL [facility] RADIATION ONCOLOGY Reference Point Dosage Given to Date 22 Gy [facility] RADIATION ONCOLOGY Reference Point Session Dosage Given 2 Gy ARIA RADIATION ONCOLOGY Reference Point ID PROSTATE BED ARIA RADIATION ONCOLOGY Reference Point Dosage Given to Date 22 Gy [facility]A RADIATION ONCOLOGY Reference Point Session Dosage Given 2 Gy [facility] RADIATION ONCOLOGY Reference Point ID RT ILIAC NODE [facility] RADIATION ONCOLOGY Reference Point Dosage Given to Date 19.8 Gy [facility] RADIATION ONCOLOGY Reference Point Session Dosage Given 1.8 Gy [facility] RADIATION ONCOLOGY Plan ID [id number] [facility] RADIATION ONCOLOGY Plan Name [id number] [facility] RADIATION ONCOLOGY Plan Fractions Treated to Date 11 [facility] RADIATION ONCOLOGY Plan Total Fractions Prescribed 25 [facility] RADIATION ONCOLOGY Plan Prescribed Dose Per Fraction 2 Gy [facility]A RADIATION ONCOLOGY Plan Total Prescribed Dose 5,000 cGy [facility] RADIATION ONCOLOGY Plan Primary Reference Point PROSTATE BED [facility] RADIATION ONCOLOGY 09/25/2021 10:4 6 EST us Provider Unknown RADIATION ONCOLOGY ORDERABLE S Final Result Performing Organization Address City/State/[facility] Co de Phone Number [facility] documented in this encounter Visit Diagnoses Not on filedocumented in this encounter Care Teams Multi Spindle Operator Relationship Specialty Start Date End Date Manuel White MD [address] [place] [address] Radiation Oncology 09/24/21 Marcella Waller [address] [place] [address] Employee Benefits Director 09/24/21 documented as of this encounter
--- OUTSIDE RECORDS SUMMARY | 2024-07-09 11:01 | XMS_ITS | Encounter Summary ---
Author Organization [facility] Address [address] [place] [address] Care Team Providers Care Embedded Developer Name Role Phone Manuel White MD Unavailable [phone] Marcella Waller Unavailable Encounter Details Date Type Department Care Team (Late st Contact Info) Description 09/25/2021 Documentation Visit [facility] Cancer Treatment [place] [address] [place] [address] Anisha Munroe, AGNIESZKA Social History Tobacco Use [...] Progress Notes * Anisha Munroe RN - 09/25/2021 1112 EST Denies changes in urinary function, no dysuria. Reports new onset of looser stools this morning. Discussion about the use of soluble fibers and/or Immodium. documented in this encounter Plan of Treatment Not on file documented as of this encounter Visit Diagnoses Not on filedocumented in this encounter Care Teams Embedded Developer Relationship Specialty Start Date End Date Manuel White MD [address] [place] [phone] Radiation Oncology 09/24/21 Marcella Waller [address] [facility],[address] [place] [address] Hiv/Aids Care Nurse 09/24/21 documented as of this encounter
--- OUTSIDE RECORDS SUMMARY | 2024-07-09 11:01 | XMS_ITS | Encounter Summary ---
Author Organization [facility] Address [address] [place] [address] Care Team Providers Care Submarine Worker Name Role Phone Unavailable Primary Care Provider Unavailabl e Encounter Details Date Type Department Care Team (Late st Contact Info) Description 09/21/2021 Results Only [facility] Radiation Oncology - [facility] [address] [place] [address] Unknown, Provider, MD Social History Tobacco Use [...] Comments RAD ONC ARIA SESSION SUMMARY Routine 09/21/2021 10:55 EST documented in this encounter Results * RAD ONC ARIA SESSION SUMMARY (09/21/2021 10:55 EST) [facility] Course ID C1 ARIA RADIATION ONCOLOGY Course First Treatment Date 09/11/2021 10:37 [facility] RADIATION ONCOLOGY Course Last Treatment Date 09/21/2021 10:55 [facility] RADIATION ONCOLOGY Course Elapsed Days 10 [facility] RADIATION ONCOLOGY Reference Point ID PELVIC NODES [facility] RADIATION ONCOLOGY Reference Point Dosage Given to Date 16.2 Gy ARIA RADIATION ONCOLOGY Reference Point Session [...] ONCOLOGY Reference Point Dosage Given to Date 16.2 Gy [facility] RADIATION ONCOLOGY Reference Point Session Dosage Given 1.8 Gy [facility] RADIATION ONCOLOGY Plan ID [id number] [facility] RADIATION ONCOLOGY Plan Name [id number] [facility] RADIATION ONCOLOGY Plan Fractions Treated to Date 9 [facility] RADIATION ONCOLOGY Plan Total Fractions Prescribed 25 [facility]A RADIATION ONCOLOGY Plan Prescribed Dose Per Fraction 2 Gy [facility]A RADIATION ONCOLOGY Plan Total Prescribed Dose 5,000 cGy [facility] RADIATION ONCOLOGY Plan Primary Reference Point PROSTATE BED [facility] RADIATION ONCOLOGY 09/21/2021 10:5 5 EST us Provider Unknown RADIATION ONCOLOGY ORDERABLE S Final Result [facility] RADIATION ONCOLOG[facility] documented in this encounter Visit Diagnoses Not on filedocumented in this encounter
--- OUTSIDE RECORDS SUMMARY | 2024-07-09 11:02 | XMS_ITS | Encounter Summary ---
Author Organization [facility] Address [address] [place] [address] Care Team Providers Care Procedure Rn Name Role Phone Unavailable Primary Care Provider Unavailabl e Reason for Referral * Consult (Routine) - Specialty Report Received Specialty Diagnoses / Procedures Referred By Duglas arizmendi Referred To Contact Diagnoses Cervical radiculopathy Tomas Coker MD Phone: tel: fax: Referral ID Status Reason Start Date Expiration Date Visits Requested Visits Authorized Specialty Report Received Specialty Services Required 03/29/2016 1 1 Question Answer Reason for Request: right sided C6-7 BERTRAND Reason for Visit * Reason Comments Neck Pain * Consult (Routine/Next Available) - Specialty Report Received Specialty Diagnoses / Procedures Referred By Duglas arizmendi Referred To Contact Orthopedic Surgery Diagnoses Right upper extremity numbness Puneet Toure Phone: tel: fax: [facility] - [address] [address] Phone: tel: fax: Referral ID Status Reason Start Date Expiration Date Visits Requested Visits Authorized [id number] Specialty Report Received Specialty Services Required 03/06/2016 1 1 Encounter Details Date Type Department Care Team (Latest Contact Info) Description 03/29/2016 9:00 EDT Office Visit [facility] - [place] [address] Tomas Coker MD [address] [place] [phone] Cervical radiculopathy (Primary Dx) Discharge Disposition: Auto Discharge Social History Tobacco Use Types Packs/Day Years Used Date Smoking Tobacco: Never Smokeless Tobacco: Current Sex and Gender Information Value Date Recorded Sex Assigned at Not on file Legal Sex Male 15:48 EDT Gender Identity Male 05/10/2021 10:21 EDT Sexual Orientation Not on file documented as of this encounter Last Filed Vital Signs Vital Sign Reading Time Taken Comments Blood Pressure - - Pulse - - Temperature - - Respiratory Rate - - Oxygen Saturation - - Inhaled Oxygen Concentration - - Weight 98.4 kg (217 lb) 03/29/2016 0847 EDT Height 179.1 cm (5' 10.5) 03/29/2016 0847 EDT Body Mass Index 30.7 03/29/2016 0847 EDT documented in this encounter [...] 03/29/2016 8:47 EDT documented in this encounter Discharge Diagnoses Diagnosis M47.892 Other spondylosis, cervical region-M47.892[ICD-10-CM] 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 Neck Pain . HPI Ken Mckeon is a 70 y.o. male coming to clinic today with a chief complaint of R arm numbness He has a h/o remote (1969') CTR bilaterally, and more recently underwetn C3-5 ACDF in [place] for cervical myelopathy after which he did well. He has had now several years of RUE numbness which he notes most intensely in the palmar aspect of his right 1st three digits but also proximally in the radial aspect of the right forearm to just above the elbow. He has some pain in the thenar eminence, but noother pain. He does note that his R am strength/stamina seems limited somewhat as he's had to alterhis bow/arrow arms over the last year or two. He had repeat CTR in 2015 on the right which EMG shows has had some improvement, but he noted no clinical improvement from that surgery. He comes in for second opinion of whether there is contribution or anything to be done from his cervical spine standpoint. VAS Neck 4.0 VAS Arm 4.0 NDI 20 Past Medical History none Past Surgical History Vasectomy CTR Bilateral shoulder sugery Inguinal hernia R TKA C3-5 ACDF Social History Retired. Chews snuff, no cigarettes. Allergies PCN - swallowing difficulty Current Outpatient Prescriptions Medication Sig Dispense Refill ??? ALPRAZolam (XANAX) 0.25 mg tablet Take 0.75 mg by mouth as needed for Sleep. ??? ciprofloxacin HCl (CIPRO) 250 mg tablet Take 250 mg by mouth 2 times daily. No current facility-administered medications for this visit. Review of Systems Pertinents included in HPI. See intake form for complete 13 system review. Physical Exam Visit Vitals ??? Ht 179.1 cm (70.5) ??? Wt 98.4 kg (217 lb) ??? BMI 30.7 kg/m2 The patient is a well developed, well nourished male, with normal body habitus. He is awake and alert, appropriately interactive, of normal mood and affect. The patient ambulates fluidly, he can heeland toe walk Spurling neg Tinnels at the cubital tunnel is and and and at the carpal tunnel is neg. Sensory examination for me today of bilateral upper extremities shows intact to LT t/o Upper extremity muscle tone is normal bilaterally. Strength testing of the upper extremities 4+ hand interossei bilat; triceps 4R, 5L and WF 4+R, 5L. Otherwise full. Duran's neg Clonus neg Imaging Imaging studies and reports were personally reviewed by me, including AP/Lat/Flex/Ext of the cervical spine, and cervical MRI and myelogram. XR show apparently well healed C3-5 ACDF with well positioned hardware. There are several mm of anterolisthesis of C5-6 in flexion which reduces incompletely in extension. 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 No central stenosis. Assessment Ken Mckeon is a 70 y.o. male with primary complaints of R arm numbness focused in the palmar aspect of his hand, but does also include the radial forearm just above the elbow that I think is potentially a combo C6 and median nerve distribution. He also objectively does have R triceps and WF weakness likely consistent with his right sided C7 foraminal stenosis. I had a long discussion with Ken today - he has had several years of constant numbness. EMG prior to his revision decompression showed distal compression at the wrist which are now appears to be improving electrodiagnostically but not clinically. He does not have significant static C6 foraminalstenosis, but there is some dynamic listhesis there which could less likely be contributing. I think his right sided C7 stenosis nicely explain his tricep/WF weakness. Ultimately the issue is I'm not all that optimistic how much improvement he might see with further cervical surgery. Radicular pain typically responds much more favorably to decompression in comparison to numbness, particularly how persistent and longstanding it is as well as the multifactorial contributions. I discussed surgery in the form of posterior lamino/foraminotomy and fusion from C3-T1 as a possible intervention - but was again guarded in it's potential up- side for him. I pressed Ken to consider how much this numbness is bothering him, and how aggressive he wants to get in attempts to remedy. Certainly if he developed more radicular pain, or the weakness in his arm progresses or is more of a complaint. He was appreciative of the assessment and would like to trial a C6-7 injection for both diagnostic and therapeutic purposes; the more potential relief of symptoms that injection provides - even shortterm from lidocaine effect - the more optimistic I would be of surgery's potential for success. I've put in the referral for injection closer to his home, and he will call us after that's completed and let us know. I spent a total of more than 30 minutes in face to face time with this patient today and more than 20 min of which was spent counseling the patient on the risks and treatment options for the problem detailed above in my assessment and plan. documented in this encounter Plan of Treatment Scheduled Referrals Name Type Priority Associated Diagnoses Orde r Schedule AMB PAIN PROCEDURE Outpatient Referral Routine Cervical radiculopathy Ordered: 03/29/2016 documented as of this encounter Visit Diagnoses Diagnosis Cervical radiculopathy- Primary Brachial neuritis or radiculitis nos documented in this encounter
--- OUTSIDE RECORDS SUMMARY | 2024-07-09 11:02 | XMS_ITS | Encounter Summary ---
Author Organization [facility] Address [address] [place] [address] Care Team Providers Care Asbestos Hazard Abatement Worker Name Role Phone Unavailable Primary Care Provider Unavailabl e Reason for Visit * Reason Comments Pain Encounter Details Date Type Department Care Team (Late st Contact Info) Description 07/10/2021 8:30 EST Office Visit [facility] [address], [address] [place] [address] Ricardo Carrera MD [address] [facility] [address] [place], [place] [id number] Cubital tunnel syndrome on right (Primary Dx); Right elbow pain Social History Tobacco Use Types Packs/Day Years Used Date Smoking Tobacco: Never Smokeless Tobacco: Current Sex and Gender Information Value Date Recorded Sex Assigned at Not on file Legal Sex Male 15:48 EDT Gender Identity Male 05/10/2021 10:21 EDT Sexual Orientation Not on file COVID-19 Exposure Response Date Recorded In the last month, have you been in contact with someone who was confirmed or suspected to have Coronavirus / COVID-19? No / Unsure 07/10/2021 8:35 EST documented as of this encounter Last Filed Vital Signs Vital Sign Reading Time Taken Comments Blood Pressure - - Pulse - - Temperature 36.9 ??C (98.4 ??F) 07/10/2021 0835 EST Respiratory Rate - - Oxygen Saturation - [...] documented in this encounter Progress Notes * Ricardo Carrera MD - 07/10/2021 0867 EST Patient presents in clinic today for treatment and evaluation of his right elbow pain.Ongoing for along time. No recalled trauma. He is bringing a disc of outside images. CHIEF COMPLAINT: Right elbow pain and hand numbness SUBJECTIVE: Ken Mckeon is a 75 y.o. male who presents with a long history over the last 5 to 10 years of worsening pain in the right elbow he has had a number of treatment interventions he notes his symptoms began however with neck surgery and resultant numbness below his biceps. 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 He does have questions regarding if anything can be done for the nerve or the joint the pain is gotten worse the just the arm hanging down tends to hurt almost all the time. The past medical, family and social history have been reviewed in the patient chart. I spent time preparing in advance of the visit today, which included obtaining and reviewing prior history and notes from the primary care provider and/or referring providers, as well as reviewing any relevant prior imaging and tests, which I also independently interpreted today History reviewed. No pertinent past medical history. Social History Tobacco Use ??? Smoking status: Never Smoker ??? Smokeless tobacco: Current User Substance Use Topics ??? Alcohol use: Not on file History reviewed. No pertinent surgical history. Allergies Allergen Reactions ??? Penicillins Anaphylaxis ??? Dexamethasone Urinary Obstruction Other reaction(s): hiccups Hiccups after injection Hiccups after injection Medications Prior to Today's Visit Medication Sig ??? ALPRAZolam (XANAX) 0.25 mg tablet Take 0.75 mg by mouth as needed for Sleep. ??? ciprofloxacin HCl (CIPRO) 250 mg tablet Take 250 mg by mouth 2 times daily. No facility-administered medications prior to visit. OBJECTIVE: Temp 36.9 ??C (98.4 ??F) On physical exam, the patient is found to be a pleasant and cooperative male who appears to be alert and oriented x 3. He is well-developed, well-nourished and in no significant distress. Breathing is unlabored. Skin is warm, pink and dry to inspection and palpation. Neurovascularly intact with good capillary refill. Examination shows 20 degree flexion contracture of the right elbow 15 of the left both can flex beyond 130 degrees. He has supination on the right of just 50 degrees versus 70 degrees on the left pronation of 60 degrees bilaterally. He has good strong function of his biceps and triceps first dorsal interosseous is normal bulk and strength as is the thenar intrinsics. He can make a tight fist and extend he has good strength with the wrist against flexion and extension. His nerve study showed a velocity at the elbow 38 m/s on the right. ASSESSMENT/PLAN radiographs are reviewed prominently noted radiocapitellar arthritis some sclerosissome narrowing not a ton of deformity however a fair amount of osteophytes and spurs are noted evenon the olecranon and some of the ulnohumeral joint. I reviewed treatment options my best recommendation would be a cubital tunnel release 1 could consider adding a radial head resection if focus was on the radiocapitellar joint however I think that has more risk of affecting his motion and stability and long-term issues where is the cubital tunnel release although not likely fixing his numbness of the thumb index and long finger could definitely help with the elbow pain symptoms when he is drawing his bowel. He is about to start radiation therapy for prostate cancer wants to talk things over will let us know if he wishes to move forward. This note was prepared using voice recognition software and the EMR. There may be inadvertent errors and omissions. Ricardo Carrera MD 07/10/2021 documented in this encounter Plan of Treatment Not on file documented as of this encounter Procedures Procedure Name Priority Date/Time Associated Diagnosis Comments XR ELBOW RIGHT 3 OR MORE VIEWS Routine 07/10/2021 9:05 EST Right elbow pain documented in this encounter Results * XR ELBOW RIGHT 3 OR MORE VIEWS (07/10/2021 9:05 EST) Anatomical Region Laterality Modality Upper Extremities Right Computed Radio graphy 07/10/2021 9:29 EST Narrative 07/10/2021 9:29 EST INDICATION: Right elbow pain TECHNIQUE: 4 views right elbow. COMPARISON: None. FINDINGS: There is advanced elbow arthrosis with findings including joint radiocapitellar and ulnohumeral joint space narrowing and osteophyte formation. There are also findings of chondrocalcinosis. Small intra-articular bodies may be present. A joint effusion is noted. No fracture is detected. Procedure Note Danny Lopez MD - 07/10/2021 INDICATION: Right elbow pain TECHNIQUE: 4 views right elbow. COMPARISON: None. FINDINGS: There is advanced elbow arthrosis with findings including jointradiocapitellar and ulnohumeral joint space narrowing and osteophyteformation. There are also findings of chondrocalcinosis. Smallintra-articular bodies may be present. A joint effusion is noted. Nofracture is detected. us Ricardo Carrera MD IMG DIAGNOSTIC IM AGING ORDERABLES Final Result documented in this encounter Visit Diagnoses Diagnosis Cubital tunnel syndrome on right- Primary Lesion of ulnar nerve Right elbow pain Pain in joint, upper arm documented in this encounter
--- OUTSIDE RECORDS SUMMARY | 2024-07-09 11:02 | XMS_ITS | Encounter Summary ---
Author Organization [facility] Address [address] [place] [address] Care Team Providers Care Completion Supervisor Name Role Phone Unavailable Primary Care Provider Unavailabl e Encounter Details Date Type Department Care Team (Late st Contact Info) Description 09/11/2021 10:15 EST - 09/11/2021 23:59 EST Hospital Encounter [facility] - [facility] - [facility] [place] [address] [place] [address] Manuel White MD [address] [place] [address] [address] [place] [address] Discharge Disposition: Home or Self [...]
--- OUTSIDE RECORDS SUMMARY | 2024-07-09 11:02 | XMS_ITS | Encounter Summary ---
Author Organization [facility] Address [address] [place] [address] Care Team Providers Care Hotel Assistant General Manager Name Role Phone Unavailable Primary Care Provider Unavailabl e Reason for Visit * Reason Onset Date Comments Appointment Related 04/04/2016 Encounter Details Date Type Department Care Team (Late st Contact Info) Description 04/04/[address] [facility] - [facility] [address] [facility] [place] [address] Tomas Coker MD [address] [place] [address] Appointment Related Social History Tobacco Use Types [...] encounter Miscellaneous Notes * Telephone Encounter - Pia Nunez - 04/04/2016 2766 EDT Patient calls in today and states Dr. Mata's office has not rec'd referral for injection - this is faxed today at [phone]. Patient will call to schedule his appointment. Copy of office note faxed to his neurologist, Dr. Casanova with [facility] Neurology faxed today to attn: Karma at [phone]. documented in this encounter Plan of Treatment Not on file documented as of this encounter Visit Diagnoses Not on filedocumented in this encounter
--- OUTSIDE RECORDS SUMMARY | 2024-07-09 11:02 | XMS_ITS | Encounter Summary ---
Author Organization [facility] Address [address] [place] [address] Care Team Providers Care Embedded Processor Name Role Phone Unavailable Primary Care Provider Unavailabl e Encounter Details Date Type Department Care Team (Latest Contact Info) Description 07/10/2021 Travel Social History Tobacco Use Types Packs/Day Years [...] 8:35 EST documented as of this encounter Functional Status [...]
--- OUTSIDE RECORDS SUMMARY | 2024-07-09 11:02 | XMS_ITS | Encounter Summary ---
Author Organization [facility] Address [address] [place] [address] Care Team Providers Care Folder Machine Name Role Phone Manuel White MD Unavailable [phone] Marcella Waller Unavailable Unknown, Provider Primary Care Provider Reji Ruvalcaba MD Primary Care Provider [phone] Jonathan Young MD Unavailable [phone] Reason for Visit * Reason Onset Date Comments Patient Outreach 08/30/2021 [facility] Patient na vigation Encounter Details Date Type Department Care Team (Late st Contact Info) Description 08/30/2021 Telephone [facility] - [facility] Adult Hematology & Oncology [facility] [place] [address] [place] [address] Patient Outreach ([facility] Patient navigation) Social History Tobacco Use Types Packs/Day [...] encounter Miscellaneous Notes * Telephone Encounter - Quiana Wallerne - 08/30/2021 0844 EST Outreach call to Ken lombardo: [facility] follow up. This navigator will meet Gregg at his next appt on 09/05. documented in this encounter Plan of Treatment Not on file documented as of this encounter Visit Diagnoses Not on filedocumented in this encounter Care Teams Folder Machine Relationship Specialty Start Date End Date Unknown, Provider, MD [address] [place] [address] PCP - General 12/10/21 12/28/21 Reji Adams MD [facility] [place] [address] PCP - General 12/29/21 Manuel White MD [address] [place] [phone] Radiation Oncology 09/24/[address] [place] [address] Medical Tech 09/24/21 Jonathan Young MD [address] [place] [address] [place] [address] Senior Technical Specialist Cardiovascular Disease 03/11/22 documented as of this encounter
--- OUTSIDE RECORDS SUMMARY | 2024-07-09 11:02 | XMS_ITS | Encounter Summary ---
Author Organization [facility] Address [address] [place] [address] Care Team Providers Care Tentering Machine Feeder Name Role Phone Unavailable Primary Care Provider Unavailabl e Encounter Details Date Type Department Care Team (Late st Contact Info) Description 05/23/2021 Transcribe Orders [facility] - [facility] - [facility] [address] [place] [address] Manuel White MD [address] [facility] [address] [place] [address] Malignant neoplasm of prostate (HCC-CMS) (Primary Dx) Social History Tobacco Use [...] as of this encounter Visit Diagnoses Diagnosis Malignant neoplasm of prostate (HCC-CMS)- Primary Malignant neoplasm of prostate documented in this encounter
--- OUTSIDE RECORDS SUMMARY | 2024-07-09 11:02 | XMS_ITS | Encounter Summary ---
Author Organization [facility] Address [address] [place] [address] Care Team Providers Care Scalp Specialist Name Role Phone Unavailable Primary Care Provider Unavailabl e Reason for Referral * Consult (Routine/Next Available) - Specialty Report Received Specialty Diagnoses / Procedures Referred By Duglas arizmendi Referred To Contact Orthopedic Surgery Diagnoses Right upper extremity numbness Puneet Toure Phone: tel: fax: [facility] [place] [address] Phone: tel: fax: Referral ID Status Reason Start Date Expiration Date Visits Requested Visits Authorized [id number] Specialty Report Received Specialty Services Required 03/06/2016 1 1 Question Answer Reason for Request: C6-C7 Radiculopathy (notes from Darlin Marroquin in scans and imaging from [facility]) Encounter Details Date Type Department Care Team (Late st Contact Info) Description 03/06/2016 Orders Only [facility] [place] [address] Puneet Toure [address] [facility] [place] [phone] Right upper extremity numbness (Primary Dx) Social History Tobacco Use Types [...] shopping? Answer Date of Assessment Author No 02/21/2016 9:52 EDT documented as of this encounter Mental Status * Because of a physical, mental, or emotional condition, does this person have serious difficulty concentrating, remembering, or making decisions? Answer Entry Date Author No 02/21/2016 9:52 EDT documented in this encounter Plan of Treatment Scheduled Referrals Name Type Priority Associated Diagnoses Order Schedule AMB CONS/FOLLOW UP ORTHOPEDICS Outpatient Referral Routine Right upper extremity numbness Ordered: 03/06/2016 documented as of this encounter Visit Diagnoses Diagnosis Right upper extremity numbness- Primary Disturbance of skin sensation documented in this encounter
--- OUTSIDE RECORDS SUMMARY | 2024-07-09 11:02 | XMS_ITS | Encounter Summary ---
Author Organization [facility] Address [address] [place] [address] Care Team Providers Care Acquisition Manager Name Role Phone Unavailable Primary Care Provider Unavailabl e Encounter Details Date Type Department Care Team (Latest Contact Info) Description 09/12/2021 9:45 EST - 09/12/2021 23:59 EST Hospital Encounter [facility] - [facility] - [facility] Cancer Treatment [place] [address] [place] [address] Discharge Disposition: Home or Self Care Social [...]
--- OUTSIDE RECORDS SUMMARY | 2024-07-09 11:02 | XMS_ITS | Encounter Summary ---
Author Organization [facility] Address [address] [place] [address] Care Team Providers Care Software Development Analyst Name Role Phone Unavailable Primary Care Provider Unavailabl e Encounter Details Date Type Department Care Team (Late st Contact Info) Description 08/27/2021 Documentation Visit [facility] Radiation Oncology - [facility] [address] [place] [address] Carolina Blackwood, RN Social History Tobacco Use [...] Progress Notes * Carolina Blackwood, RN - 08/27/2021 1040 EST Pt in for a f/u appointment with . He denies any change in urinary symptoms and he has started on Bicalutamide and a 3 month Eligard injection at a clinic in [place]. documented in this encounter Plan of Treatment Not on file documented as of this encounter Visit Diagnoses Not on filedocumented in this encounter
--- OUTSIDE RECORDS SUMMARY | 2024-07-09 11:02 | XMS_ITS | Encounter Summary ---
Author Organization [facility] Address [address] [place] [address] Care Team Providers Care Lecturer In Marketing Name Role Phone Unavailable Primary Care Provider Unavailabl e Reason for Visit * Reason Comments Stress Management Encounter Details Date Type Department Care Team (Latest Contact Info) Description 07/10/2021 11:00 EST Community Health Team [facility] Adult Hematology & Oncology [address] [place] [address] [phone] Augusta Meade, [address] [place] [address] Adjustment disorder with mixed anxiety [...]
--- OUTSIDE RECORDS SUMMARY | 2024-07-09 11:02 | XMS_ITS | Encounter Summary ---
Author Organization [facility] Address [address] [place] [address] Care Team Providers Care Review Consultant Name Role Phone Unavailable Primary Care Provider Unavailabl e Reason for Visit * Reason Onset Date Comments Medication Management 08/28/2021 Encounter Details Date Type Department Care Team (Late st Contact Info) Description 08/28/2021 Telephone [facility] Adult Hematology & Oncology [address] [place] [address] [phone] Amanda Donovan RN Medication Management Social History Tobacco Use Types [...] encounter Miscellaneous Notes * Telephone Encounter - Amanda Muñoz RN - 08/28/2021 0953 EST Call from [facility]- script for Zytiga was sent as quanity of #30, however patient is taking 4 pills a day, so need to confirm that we really meant 30 day supply, with #120 pills. Called Tracy back, spoke with Derek, she has updated script to indicate #120, not #30. Advised we may be sending script for prednisone along after meeting with patient on . documented in this encounter Plan of Treatment Not on file documented as of this encounter Visit Diagnoses Not on filedocumented in this encounter
--- OUTSIDE RECORDS SUMMARY | 2024-07-09 11:02 | XMS_ITS | Encounter Summary ---
Author Organization [facility] Address [address] [place] [address] Care Team Providers Care Carpenter Streetcar Name Role Phone Manuel White MD Unavailable [phone] Marcella Waller Unavailable Unknown, Provider Primary Care Provider Reji Ruvalcaba MD Primary Care Provider [phone] Jonathan Young MD Unavailable [phone] Encounter Details Date Type Department Care Team (Late st Contact Info) Description 04/07/2020 Lab Requisition [facility] Pathology & Laboratory Medicine - [facility] [address] [place] [address] Outr Resulting Lab, Provider Social History Tobacco Use Types Packs/Day Years [...] Procedure Name Priority Date/Time Associated Diagnosis Comments DO NOT ORDER STANDALONE - BROAD COVID TEST Today 04/07/2020 14:11 EDT COVID-19 TESTING Routine 04/07/2020 14:1 1 EDT documented in this encounter Results * DO NOT ORDER STANDALONE - BROAD COVID TEST (04/07/2020 14:11 EDT) COVID-19 rt-PCR Result NEGATIVE Negative 04/08/2020 17:54 EDT [facility] Comment: 2019-novel Coronavirus (2019-nCoV) not detected by the qRT-PCR assay. Consider testing for other respiratory viruses or re-collecting for 2019-nCoV testing. Note: Optimum timing for peak viral levels during infections caused by 2019-nCoV have not been determined. Collection of multiple specimens from the same patient may be necessary to detect the virus. Limitations Positive results are indicative of active infection with SARS-CoV-2 but do not rule out bacterial infection or co-infection with other viruses. The agent detected may not be the definite cause of disease. In addition, detection of viral RNA may not indicate the presence of infectious virus or that SARS-CoV-2 is the causative agent for clinical symptoms. Negative results do not preclude SARS-CoV-2 infection and should not be used as the sole basis for patient management decisions. Negative results must be combined with clinical observations, patient history, and epidemiological information. False negative results may also occur if amplification inhibitors are present in the specimen or if inadequate numbers of organisms are present in the specimen. Optimum specimen types and timing for peak viral levels during infections caused by SARS-CoV-2 have not been fully determined. Collection of multiple specimens (types and time points) from the same patient may be necessary to detect the virus. The test was validated for use with upper respiratory specimens obtained via nasopharyngeal or oropharyngeal swabs in VTM, UTM, M4, M5, M6, saline, and MTM media. The performance of this test has not been established for other specimens. Specimens collected using other FDA recommended Specimen Collection Materials listed in the FDA COVID-19 [employer] communication (October 21, 2019) are processed with the caveat that they were not all validated for use with this test and the result must be interpreted in this context. Furthermore, a false negative results may occur if a specimen is improperly collected, transported or handled. If the virus mutates in the RT-PCR target region, SARS-CoV-2 may not be detected or may be detected less predictably. Inhibitors or other types of interference may produce a false negative result. An interference study evaluating the effect of common cold medications was not performed. This test is not FDA-cleared but its performance characteristics were established by our CLIA-certified, CAP-accredited, high complexity laboratory in accordance with CLIA regulations, [employer] [place] [employer] (CAP) guidelines (Oct 14, 2019), and FDA guidance (Sep 25, 2019). This test is only for use under the Food and Drug Administration's Emergency Use Authorization. Swab ENTIRE NASOPHARYNX / Unknown 04/07/2020 14:11 EDT 04/07/2020 21:24 EDT us Provider Outr Resulting Lab MICROBIOLOGY - GENER AL ORDERABLES Final Result [facility] [place], [place] * COVID-19 TESTING (04/07/2020 14:11 EDT) COVID-19 rt-PCR Result NEGATIVE Negative 04/08/2020 20:24 EDT [facility] Comment: 2019-novel Coronavirus (2019-nCoV) not detected by the qRT-PCR assay. Consider testing for other respiratory viruses or re-collecting for 2019-nCoV testing. Note: Optimum timing for peak viral levels during infections caused by 2019-nCoV have not been determined. Collection of multiple specimens from the same patient may be necessary to detect the virus. Limitations Positive results are indicative of active infection with SARS-CoV-2 but do not rule out bacterial infection or co-infection with other viruses. The agent detected may not be the definite cause of disease. In addition, detection of viral RNA may not indicate the presence of infectious virus or that SARS-CoV-2 is the causative agent for clinical symptoms. Negative results do not preclude SARS-CoV-2 infection and should not be used as the sole basis for patient management decisions. Negative results must be combined with clinical observations, patient history, and epidemiological information. False negative results may also occur if amplification inhibitors are present in the specimen or if inadequate numbers of organisms are present in the specimen. Optimum specimen types and timing for peak viral levels during infections caused by SARS-CoV-2 have not been fully determined. Collection of multiple specimens (types and time points) from the same patient may be necessary to detect the virus. The test was validated for use with upper respiratory specimens obtained via nasopharyngeal or oropharyngeal swabs in VTM, UTM, M4, M5, M6, saline, and MTM media. The performance of this test has not been established for other specimens. Specimens collected using other FDA recommended Specimen Collection Materials listed in the FDA COVID-19 [employer] communication (October 21, 2019) are processed with the caveat that they were not all validated for use with this test and the result must be interpreted in this context. Furthermore, a false negative results may occur if a specimen is improperly collected, transported or handled. If the virus mutates in the RT-PCR target region, SARS-CoV-2 may not be detected or may be detected less predictably. Inhibitors or other types of interference may produce a false negative result. An interference study evaluating the effect of common cold medications was not performed. This test is not FDA-cleared but its performance characteristics were established by our CLIA-certified, CAP-accredited, high complexity laboratory in accordance with CLIA regulations, [employer] [place] [employer] (CAP) guidelines (Oct 14, 2019), and FDA guidance (Sep 25, 2019). This test is only for use under the Food and Drug Administration's Emergency Use Authorization. Performing Lab [facility] [place] 04/08/2020 20:24 EDT [facility] Swab 04/07/2020 14:1 1 EDT 04/07/2020 21:24 EDT us Provider Outr Resulting Lab MICROBIOLOGY - GENER AL ORDERABLES Final Result [facility] [address] [place] [address] [facility] [place], [place] documented in this encounter Visit Diagnoses Not on filedocumented in this encounter Care Teams Carpenter Streetcar Relationship Specialty Start Date End Date Unknown, Provider, MD [address] [place] [address] PCP - General 12/10/21 12/28/21 Reji Adams MD [facility] [place] [address] [place] [address] PCP - General 12/29/21 Manuel White MD [address] [place] [phone] Radiation Oncology 09/24/21 Marcella Waller [address] [facility] [place] [address] Electric Shipyard Operator 09/24/21 Jonathan Young MD [address] [place] [address] [address] [place] [address] Lead Database Administrator Cardiovascular Disease 03/11/22 documented as of this encounter
--- OUTSIDE RECORDS SUMMARY | 2024-07-09 11:02 | XMS_ITS | Encounter Summary ---
Author Organization [facility] Address [address] [place] [address] Care Team Providers Care Account Support Manager Name Role Phone Unavailable Primary Care Provider Unavailabl e Encounter Details Date Type Department Care Team (Late st Contact Info) Description 05/07/2021 Results Only [facility] Cancer Treatment [place] [address] [place] [address] Manuel White MD [address] [facility] [address] [place] [address] Social History Tobacco Use Types [...] ULTRASENSITIVE, DIAGNOSTIC, S UROLOGY/ONCOLOGY USE ONLY Routine 05/07/2021 11:56 EDT documented in this encounter Results * PSA, ULTRASENSITIVE, DIAGNOSTIC, S UROLOGY/ONCOLOGY USE ONLY (05/07/2021 11:56 EDT) Pathologist [facility] PSA ULTRASENSTIVE - [facility] 0.253 <4.0 ng/mL 05/09/2021 7:37 EDT [facility] Comment: Test methodology is Siemens Chemiluminescence. The lower limit of detection is 0.010 ng/mL. ??Results from different methods or kits cannot be used interchangeably. ?? Serum PSA results cannot be interpreted as absolute evidence of presence or absence of malignancy. PERFORMED at [facility]. ??[address] [place] [id number]. Laboratory Wet Roaster: ??Kristofer Liz M.D. 05/07/2021 11:5 6 EDT 05/07/2021 11:56 EDT Narrative [facility] - 05/09/2021 7:37 EDT Does PT Have a Latex Allergy? NO us Manuel White MD CHEMISTRY & BLOOD GAS ORD ERABLES Final Result [facility] [address] [place] [address] documented in this encounter Visit Diagnoses Not on filedocumented in this encounter
--- OUTSIDE RECORDS SUMMARY | 2024-07-09 11:02 | XMS_ITS | Clinical Summary ---
Author Organization Formerly [facility] [address] Care Team Providers Care Keyboarding Clerk Name Role Phone Reji Adams MD Primary Care Provider [phone] Allergies Active Allergy Reactions Criticality Noted Date Comments Betamethasone 03/17/2018 hiccups after injection Dexamethasone 03/31/2018 Hiccups after injection Penicillins Anaphylaxis High 02/20/2016 Tongue swelling Triamcinolone Acetonide 09/05/2021 Hiccups Medications Medication Sig Dispensed Refills Start Date End Date Status multivitamin (THERAGRAN) tablet Take 1 tablet by mouth daily. Active acetaminophen (TYLENOL) 650 mg Tablet Sustained Release Take 650 mg by mouth every 8 hours as needed for Pain. Do not exceed 6 tabs in 24 hours Active polyethylene glycoL (Miralax) 17 gram/dose Powder Take 17 g by mouth daily. Active BORON ORAL Take 2 mg by mouth daily. Active tadalafiL (Cialis) 5 mg tablet Take 5 mg by mouth as needed for Erectile Dysfunction. Active pravastatin (Pravachol) 20 mg tablet Take 1 tablet by mouth daily. 90 tablet 3 10/24/2023 Active magnesium citrate 100 mg Tablet Take 200 mg by mouth daily. Active ALPRAZolam (Xanax) 0.25 mg tabletIndications:An xiety Take 1 tablet by mouth 3 times daily as needed for Anxiety. 70 tablet 06/29/2024 Active metroNIDAZOLE (METROCREAM) 0.75 % Cream Apply topically 2 times daily. Apply to face 45 g 06/29/2024 Active Active Problems Patient Care Coordination No te Formatting of this note is d ifferent from the original. Patient on reminder list for controlled medications: Medication Xanax 0.25 Pharmacy [facility] [id number] Agreement No benzo on file UDS N/A NATALIE 12/11/2023 AWV NOV 12/10/2024 Problem Noted Date Diagnosed Date Hyperparathyroidism 12/11/2023 Palpitations 09/23/2023 Assessment & Plan (09/23/2023 2:54 PM EST): - likely related to anxiety - labs are WNL - ziopatch reassuring - no indication for pharmacologic treatment (bblocker) at the time - treatment of anxiety per PCP Age-related osteoporosis with current pathologic al fracture 11/08/2022 History of total replacement of both hip joints 08/06/2022 Sacral insufficiency fracture 04/11/2022 Pure hypercholesterolemia 04/11/2022 Varicose veins of both lower extremities with pa in 02/11/2022 LAFB (left anterior fascicular block) 12/10/2021 PSVT (paroxysmal supraventricular tachycardia) 0 12/10/2021 RBBB 12/10/2021 S/P rotator cuff repair 08/07/2018 Trigger finger, left ring finger 03/31/2018 Chronic left shoulder pain 05/13/2017 Asymmetrical sensorineural hearing loss 04/21/20 17 Right arm numbness 09/04/2015 Peripheral neuropathy 09/26/2014 Overview (09/26/2014): Diagnosis in progress, decrease in sharp sensation, and vibratory sensation in b/l feet Assessment & Plan (09/26/2014 11:58 AM EST): SPEP/UPEP B12/folate hba1c Cbc BMP RPR Crp Urinary urgency 09/26/2014 Overview (09/26/2014): W/ hesitency, given duration, likely BPH Assessment & Plan (09/26/2014 12:31 PM EST): U/a micro and urine culture Likely bph Cervical stenosis of spinal canal 08/16/2014 Depression 01/20/2013 Cervical radiculopathy 09/24/2012 Neck pain 08/24/2012 Anxiety 03/13/2012 Cataract extraction status of left eye 1 Status post total knee replacement 01/04/2011 Overview (04/26/2012): TKR Right knee in 2007 OA (osteoarthritis) of knee Overview (04/26/2012): right Prostate cancer metastatic to intrapelvic lymph node Resolved Problems Problem Noted Date Diagnosed Date Resolved Date Pre-op testing 08/28/2022 11/08/2022 Pain in right hip 08/06/2022 11/08/2022 Venous insufficiency of both lower extremities 02/11/2022 11/08/2022 Arthritis of right elbow 05/13/2017 Otalgia 04/21/2017 08/06/2018 Left ear pain 10/31/2016 01/27/2020 Panic attack 09/30/2016 08/06/2018 Shoulder pain, bilateral 11/06/201508/2019 Right hand pain 01/13/2015 01/27/2020 Numbness 09/26/2014 01/27/2020 Overview (09/26/2014): Lateral three digits of R hand Assessment & Plan (09/26/2014 12:26 PM EST): Possible carpal tunnel versus stenosis farther up the track - EMG ordered Fatigue 09/26/2014 09/30/2016 Overview (09/26/2014): Short duration Assessment & Plan (09/26/2014 12:32 PM EST): Unclear etiology, will f/u labs Finger pain 01/25/2014 09/30/2016 Ileitis 09/01/2013 09/30/2016 Back pain 04/12/2013 11/08/2022 Left shoulder pain 12/11/2012 0 Insomnia 09/01/2012 11/08/2022 Lightheadedness 11/20/2011 01/27/2020 Varicose veins of legs 11/20/201102/11 OA (osteoarthritis) of knee 02/12/2012 Encounters Date Type Department Care Team Description 07/05/2024 11:55 AM EST Laboratory Appointment Lab at [facility] [address] [place] [address] Prostate cancer metastatic to intrapelvic lymph node; Malignant neoplasm prostate; Erectile dysfunction, unspecified erectile dysfunction type 07/05/2024 Travel 06/21/2024 Refill Internal Medicine at [facility] [address] [place] [address] Reji Adams MD Anxiety 05/28/2024 Refill Internal Medicine at [facility] [address] [place] [address] Reji Adams MD Anxiety 05/21/2024 10:40 AM EDT Office [place] [phone] Mary Ny MD Left ear pain; Cervical stenosis of spinal canal 05/20/2024 Travel 05/05/2024 5:43 PM EDT - 05/05/2024 11:59 PM EDT Hospital Encounter Radiology MRI at [facility] [place] [address] Danny Barron II, MD Cervical spinal stenosis Discharge Disposition: Home 05/04/2024 Travel 04/28/2024 Refill Internal Medicine at [facility] [place] [address] Reji Adams MD Anxiety 04/14/2024 10:00 AM EDT Office [place] [phone] Charline Ziegler MD Chronic constipation (Primary Dx); Pelvic floor dysfunction 04/14/2024 Travel from Last 3 Months Immunizations Name Administration Dates Next Due Covid-19 (Moderna Spikevax) 12yrs+ (0327-7832) 04/28/2024,04/24/2023 Covid-19 Bivalent (Pfizer Co mirnaty) 12yrs+ (4822-1722) 04/27/2022 Covid-19 Monovalent (Pfizer Comirnaty purple cap) 12yrs+ () 11/16/2020,10/26/2020 DT Pediatric 07/28/2007 Influenza (Fluzone HD) Quadr ivalent High Dose, Preservative Free 04/27/2022 Influenza (Fluzone HD) Triva lent High Dose 05/18/2021,05/11/2020,04/26/2017,05/01,05/09/2015 Influenza Adjuvanted (FluAd) Trivalent, PF 65yrs+ 04/08/2024,04/28/2019 Influenza PF, Split 05/26/2013,05/14/2012 Influenza Quadrivalent (FluA d) Adjuvanted 04/09/2023 Influenza Quadrivalent, Pres ervative Free 05/05/2018 Influenza Trivalent w/Preservative 04/24/2014, Influenza Vaccine, Whole 05/06/2010,06/10/2009 Pneumococcal 13-Valent Conju gate (Prevnar 13) 11/04/2014 Pneumococcal 23-Valent Polys accharide (Pneumovax 23) 09/01/2012,10/16/2004 Td Adult (Decavac, Tenivac) 06/11/2023 Tdap (Adacel, Boostrix) 04/02/2013 Zoster LIVE (Zostavax) 04/12/2013 Zoster Recombinant (ShingRix) 08/25/2020, 020 Family History Medical History Relation Comments Cancer Father testicular Diabetes Father Cancer Mother bone Relation Status Comments Father Mother Social History Tobacco Use Types Packs/Day Years Used Date Smoking Tobacco: Never Smokeless Tobacco: Current Chew Tobacco Cessation:Ready to Q uit: Not Asked; Counseling Given: Not Answered Comments:3 cans/ week. Alcohol Use Standard Drinks/Week Comments Not Currently 0 (1 standard drink = 0.6 oz pur e alcohol) [facility] Utilities Answer Date Recorded In the past 12 months has [employer], [employer], oil, or water [employer] threatened to shut off services in your home? Patient declined 12/10/2023 Overall Financial Resource Strain (CARDIA) Answe r Date Recorded How hard is it for you to pa y for the very basics like food, housing, medical care, and heating? Patient declined 12/10/2023 Exercise Vital Sign Answer Date Recorde d On average, how many days pe r week do you engage in moderate to strenuous exercise (like a brisk walk)? 0 days 12/10/2023 On average, how many minutes do you engage in exercise at this level? 0 min 12/10/2023 Hunger Vital Sign Answer Date Recorded Within the past 12 months, y ou worried that your food would run out before you got the money to buy more. Patient declined Within the past 12 months, t he food you bought just didn't last and you didn't have money to get more. Patient declined PRAPARE - Transportation Answer Date Re corded In the past 12 months, has l ack of transportation kept you from medical appointments or from getting medications? Patient declined 12/10/2023 In the past 12 months, has l ack of transportation kept you from meetings, work, or from getting things needed for daily living? Patient declined 12/10/2023 Housing Stability Vital Sign Answer Danny e Recorded In the last 12 months, was t here a time when you were not able to pay the mortgage or rent on time? Patient declined 12/10/19 24 In the last 12 months, how many places have you lived? 1 12/10/2023 In the last 12 months, was t here a time when you did not have a steady place to sleep or slept in a penitentiary (including now)? Patient declined 12/10/2023 Sex and Gender Information Value Date Recorded Sex Assigned at Choose not to disclose 02/2023 8:26 AM EDT Gender Identity Not on file Sexual Orientation Choose not to disclose 2022 8:26 AM EDT Last Filed Vital Signs Vital Sign Reading Time Taken Comments Blood Pressure 126/71 04/14/2024 9:56 AM EDT Pulse 57 04/14/2024 9:56 AM EDT Temperature 36.8 ??C (98.2 ??F) 02/27/2024 11:34 AM E DT Respiratory Rate 16 04/14/2024 9:56 AM EDT Oxygen Saturation 98% 02/27/2024 11:34 AM EDT Inhaled Oxygen Concentration - - Weight 95 kg (209 lb 6.4 oz) 04/14/2024 9:56 AM EDT Height 179.1 cm (5' 10.5) 04/14/2024 9:56 AM ED T Body Mass Index 29.62 04/14/2024 9:56 AM EDT Plan of Treatment Upcoming Encounters Date Type Department Care Team (Late st Contact Info) Description 12/15/2024 11:30 AM EDT Office Visit Gastroenterology at [facility] [place] [address] Charline Ziegler MD [facility] [place] [address] Health Maintenance Due Date Last Done Comments RSV Vaccine (1 - 1-dose 75+ series) 2021 Tetanus/Diphtheria/Pertussis Vaccines (4 - Td or Tdap) 06/11/2033 06/11/2023, 04/02/2013, 07/28/2007 Hepatitis C Screening Completed 09/01/2012 Pneumoccocal Vaccine: 65+ Completed 2014, 09/01/2012, 10/16/2004 Zoster vaccine Completed 08/25/2020, 05/28, 04/12/2013 Colonoscopy Discontinued 07/26/2022, 06/29, 01/25/2020, Additional history exists Colorectal Cancer Screening Discontinued Sigmoidoscopy (10 year) with FIT yearly Discontinued 07/26/2022, 07/26/2022, 01/25/2020, Additional history exists Influenza (Flu) vaccine Completed 04/08/20 24, 04/09/2023, 04/27/2022, Additional history exists Covid-19 Vaccine Completed 04/28/2024, , 04/27/2022, Additional history exists CT Colonography Discontinued FIT DNA Discontinued FIT Discontinued Sigmoidoscopy Discontinued Procedures Procedure Name Priority Date/Time Associated Diagnosis Comments PSA (ULTRASENSITIVE) Routine 07/05/2024 12:03 PM EST Malignant neoplasm prostate Erectile dysfunction, unspecified erectile dysfunction type MRI CERVICAL SPINE WO CONTRAST Routine 05/05/2024 6:27 PM EDT Cervical spinal stenosis COLONOSCOPY Routine 07/26/2022 2:52 PM EST HEPATITIS C ANTIBODY Routine 09/01/2012 3:32 PM EST Healthcare maintenance from Last 3 Months or Most Recently Relevant to Health Maintenance Results * PSA (Ultrasensitive) (07/05/2024 12:03 PM EST) Prostate Specific Antigen (Ultrasensitive) <0.01 0.00-4.00 ng/mL ng/ml 07/05/2024 5:58 PM EST [facility] Comment:The reference interv al (0 - 4 ng/mL) is applicable to individuals with an intact prostate. Values within this reference interval may indicate recurrence in those who have undergone radical prostatectomy. This result was generated using a Tung Johanna immunoassay. Results obtained from other methods or manufacturers cannot be used interchangeably with this method. Blood VENOUS BLOOD SPECIMEN / Unknown Venipuncture / Unknown 07/05/2024 12:03 PM EST 07/05/2024 12:03 PM EST Javid Almanza II, MD CHEMISTRY ORDER DALILA [facility] [place] [id number] * MRI Cervical Spine wo Contrast (Generic) (05/05/2024 6:27 PM EDT) WORKSTATION ID [id number] DH RAD Anatomical Region Laterality Modality C-spine Magnetic Resonan ce Impressions 05/09/2024 1:01 PM EDT Post C3-5 ACDF with nonprogressive cervical spondylosis as detailed above. I have personally reviewed the image(s) and the resident's interpretation and agree with the findings, Rigo Kiran, DO at 05/09/2024 1:01 PM Thank you for letting us participate in the care of this patient. ??If you are a health care provider and have any questions regarding this report, please contact the number below. ??For patients who have questions please contact the health care partner that requested your imaging first. ? Electronically signed by: Rigo Kiran DO [facility] ??([phone]), at 05/09/2024 1:01 PM Narrative 05/09/2024 1:01 PM EDT EXAMINATION: MRI CERVICAL SPINE WO CONTRAST (GENERIC) CLINICAL HISTORY: Cervical stenosis / RUE parasthesias M48.02, Spinal stenosis, cervical region TECHNIQUE: MRI of the cervical spine performed without intravenous contrast administration. COMPARISON: MRI total spine 12/08/2020 MRI cervical spine 12/28/2018 FINDINGS: Prior C3-5 ACDF with osseous fusion. Similar minor grade 1 anterolisthesis of C5 on C6. No fracture or suspicious marrow replacing process. Focal T2 prolongation in the right lateral cord at the C4 level is unchanged from at least 2019 and is likely a small focus of encephalomalacia. No new cord signal abnormality. Normal craniocervical junction. C2-C3: Similar small disc bulge. Dorsal ligamentous encroachment slightly more conspicuous with similar net degree of mild spinal stenosis. No significant foraminal narrowing. C3 through C5: No progressive spinal or foraminal narrowing across the fused segments. C5-C6: Posterior disc osteophyte complex and ligamentum flavum thickening mildly narrowing the spinal canal. Moderate left and mild right foraminal narrowing as a result of uncovertebral arthropathy. C6-C7: Small posterior disc osteophyte complex mildly narrows the spinal canal. Mild bilateral foraminal narrowing. C7-T1: Small posterior disc osteophyte complex without significant spinal canal narrowing. Severe left left foraminal narrowing as a result of uncovertebral adenopathy. Procedure Note Rigo Kiran DO - 05/09/2024 EXAMINATION: MRI CERVICAL SPINE WO CONTRAST (GENERIC) CLINICAL HISTORY: Cervical stenosis / RUE parasthesias M48.02, Spinal stenosis, cervical region TECHNIQUE: MRI of the cervical spine performed without intravenous contrastadministration. COMPARISON: MRI total spine 12/08/2020 MRI cervical spine 12/28/2018 FINDINGS: Prior C3-5 ACDF with osseous fusion. Similar minor grade 1 anterolisthesisof C5 on C6. No fracture or suspicious marrow replacing process. Focal [id number] in the right lateral cord at the C4 level is unchanged from at least 2019and is likely a small focus of encephalomalacia. No new cord signal abnormality.Normal craniocervical junction. C2-C3: Similar small disc bulge. Dorsal ligamentous encroachment slightlymore conspicuous with similar net degree of mild spinal stenosis. Nosignificant foraminal narrowing. C3 through C5: No progressive spinal or foraminal narrowing across thefused segments. C5-C6: Posterior disc osteophyte complex and ligamentum flavum thickeningmildly narrowing the spinal canal. Moderate left and mild right foraminalnarrowing as a result of uncovertebral arthropathy. C6-C7: Small posterior disc osteophyte complex mildly narrows the spinalcanal. Mild bilateral foraminal narrowing. C7-T1: Small posterior disc osteophyte complex without significant spinalcanal narrowing. Severe left left foraminal narrowing as a result ofuncovertebral adenopathy. IMPRESSION Post C3-5 ACDF with nonprogressive cervical spondylosis as detailedabove. I have personally reviewed the image(s) and the resident's interpretationand agree with the findings, Rigo Kiran DO at 05/09/2024 1:01 PM Thank you for letting us participate in the care of this patient. If youare a health care provider and have any questions regarding this report,please contact the number below. For patients who have questions please contactthe health care partner that requested your imaging first. Danny Barron II, MD IMJay[facility] MRI ORDERA BLES * COLONOSCOPY (07/26/2022 2:52 PM EST) COLONOSCOPY [facility] Procedure Date: 07/26/2022 2:52 PM ? Patient Name: Ken Mckeon ? Date of : 1945 ? Age: 76 ? Order #: [id number] ? Instrument Name: [id number] ? Procedure: ? Colonoscopy Indications: ? Constipation Providers: ? May Riojas MD, Geraldo Noriega ? Dayna Gonzalez Referring : ?Reji Adams MD Medicines: ? Fentanyl 250 micrograms IV, ? Midazolam 6 mg IV Complications: ? No immediate complications. Procedure: ? Pre-Anesthesia Assessment: ? - Prior to the procedure, a History ? and Physical was performed, and ? patient medications and allergies ? were reviewed. The patient's ? tolerance of previous anesthesia ? was also reviewed. The risks and ? benefits of the procedure and the ? sedation options and risks were ? discussed with the patient. All ? questions were answered, and ? informed consent was obtained. ? Prior Anticoagulants: The patient ? has taken no anticoagulant or ? antiplatelet agents. ASA Grade ? Assessment: II - A patient with ? mild systemic disease. After ? reviewing the risks and benefits, ? the patient was deemed in ? satisfactory condition to undergo ? the procedure. ? The procedure, indications, ? benefits, risks and alternatives ? were explained to the patient. ? Specifically discussed were ? potential complications including, ? but not limited to, bleeding, ? perforation, infection, missing a ? cancer, and adverse medication ? reactions. The patient was placed ? in the left lateral decubitus ? position, and a digital rectal exam ? was performed. The Colonoscope was ? inserted in the anus and under ? direct visualization, advanced to ? the cecum, identified by ? appendiceal orifice and ileocecal ? valve. Careful inspection was made ? as the colonoscope was withdrawn. ? The colonoscopy was performed ? without difficulty. The patient ? tolerated the procedure well. The ? quality of the bowel preparation ? was evaluated using the BBPS ? (Limon Bowel Preparation Scale) ? with scores of: Right Colon = 3, ? Transverse Colon = 3 and Left Colon ? = 3 (entire mucosa seen well with ? no residual staining, small ? fragments of stool or opaque ? liquid). The total BBPS score ? equals 9. The terminal ileum, ? ileocecal valve, appendiceal ? orifice, and rectum were ? photographed. Withdrawal time was ? 10 minutes. ? Findings: ? The perianal and digital rectal examinations were ? normal. ? The terminal ileum appeared normal. ? The descending colon, transverse colon, ascending ? colon and cecum appeared normal. ? A few small-mouthed diverticula were found in the ? sigmoid colon. ? Internal hemorrhoids were found during retroflexion. ? Moderate Sedation: ? I was present during the intraservice time as ? documented by the sedation RN. Impression: ?- The examined portion of the ileum ? was normal. ? - The descending colon, transverse ? colon, ascending colon and cecum ? are normal. ? - Diverticulosis in the sigmoid ? colon. ? - Internal hemorrhoids. ? - No specimens collected. Recommendation: ?- Miralax 1 capful (17 grams) in 8 ? ounces of water PO daily. Follow up ? with Dr. Ravi as scheduled. Next ? screening colonoscopy could be ? consider in 2030 after discussion ? with PCP. ? - Return to referring physician. ? Attending Participation: ? I personally performed the entire procedure. ? May Riojas MD May Riojas MD 07/26/2022 4:31:07 PM This report has been signed electronically. Number of Addenda: 0 Note Initiated On: 07/26/2022 2:52 PM PROVATION 07/26/2022 2:52 PM EST Reji Adams MD GENERAL SURGICAL ORD ERABLES PROVATION * Hepatitis C Antibody (09/01/2012 3:32 PM EST) Hepatitis C Antibody Negative Negative [facility] Blood specimen (specimen) 09/01/2012 3:32 PM EST 09/01/2012 6:12 PM EST Narrative Resulting Agency Comment Spec In Lab Reji Adams MD CHEMISTRY ORDERABLES [facility] from Last 3 Months or Most Recently Relevant to Health Maintenance Advance Directives Documents on File Type Date Recorded Patient Information Assurance Engineer Expl anation Advance Directives and Livin g Will 05/06/2024 11:17 AM * Attempt Cardiopulmonary Resuscitation - Inpatient (Latest Code Status on File) Date Activated Date Inactivated Comments 05/22/2022 1:26 PM 05/22/2022 6:44 PM Question Answer Comments Code Status decision made by: Patient Care Teams Keyboarding Clerk Relationship Specialty Start Date End Date Reji Adams MD NPI: [id number] [place] [address] [place]AL [place] [address] PCP - General General Internal Medicine 07/13/15
--- OUTSIDE RECORDS SUMMARY | 2024-07-09 11:02 | XMS_ITS | Encounter Summary ---
Author Organization [facility] Address [address] [place] [address] Care Team Providers Care Arson And Bomb Investigator Name Role Phone Manuel White MD Unavailable [phone] Marcella Waller Unavailable Unknown, Provider Primary Care Provider Reji Ruvalcaba MD Primary Care Provider [phone] Jonathan Young MD Unavailable [phone] Reason for Visit * Reason Onset Date Comments Other 08/27/2021 [facility] Patient Lei igation Encounter Details Date Type Department Care Team (Late st Contact Info) Description 08/27/2021 Telephone [facility] - [facility] Adult Hematology & Oncology [facility] [place] [address] Marcella Waller [address] [place] [address] Other ([facility] Patient Navigation ) Social History Tobacco Use [...] by mouth daily. 30 Tablet 2 08/27/2021 2 documented in this encounter Miscellaneous Notes * Telephone Encounter - Amanda Muñoz RN - 08/27/2021 1432 EST Zytiga script sent to [facility]. * Telephone Encounter - Amadna Muñoz RN - 08/27/2021 1336 EST Esh- just to clarify, do you want prednisone called in as well, or just the Zytiga? * Telephone Encounter - Amanda Muñoz RN - 08/27/2021 1333 EST Marcella Waller to Lindsay Espino MD [address] Espino, I had the opportunity to meet Ken who is scheduled to see you 08/30 at 8:00. PTindicates that he has previously been prescribed Zytiga and is interested in starting this new RX under your direction. Together we confirmed verbally, he will qualify for patient financial assistance through [employer], for the generic abiraterone. If you approve of this RX, please can you direct theRX to be sent to [employer]? I will bring a paper script to your office and can further assist patientwith access. Best regards, Lindsay Wheatley MD to You; 2 others 9 minutes ago Okay to send in prescription for abiraterone 1000 mg daily to [facility]. Thank you. * Telephone Encounter - Marcella Waller - 08/27/2021 1257 EST This science writer met with Ken today. We discussed financial assistance for Zytiga which the patient states he qualifies for We will meet on 08/30 following his 8:00 a.m. to finalize application process with [employer]. We discussed additional services including acupuncture, gas card program, [facility] and additional resources. 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 documented in this encounter Plan of Treatment Not on file documented as of this encounter Visit Diagnoses Not on filedocumented in this encounter Care Teams Arson And Bomb Investigator Relationship Specialty Start Date End Date Unknown, Provider, MD [address] [place] [address] PCP - General 12/10/21 12/28/21 Reji Adams MD [facility] [address] PCP - General 12/29/21 Manuel White MD [address] [place] [address] Radiation Oncology 09/24/[address] [place] [address] Film Process Operator 09/24/21 Jonathan Young MD [address] [place] [address] [place] [address] Multimedia Specialist Cardiovascular Disease 03/11/22 documented as of this encounter
--- OUTSIDE RECORDS SUMMARY | 2024-07-09 11:02 | XMS_ITS | Encounter Summary ---
Author Organization [facility] Address [address] [place] [address] Care Team Providers Care Career And Technology Education Teacher Name Role Phone Unavailable Primary Care Provider Unavailabl e Reason for Visit * Reason Onset Date Comments Prior Auth, Medication 08/28/2021 Encounter Details Date Type Department Care Team (Late st Contact Info) Description 08/28/2021 Telephone [facility] Adult Hematology & Oncology [address] [place] [address] [place] [address] [facility] [address] [place] [address] (Fax) Prior Auth, Medication Social History Tobacco Use Types Packs/Day Years [...] Encounter - Amanda Muñoz RN - 08/28/2021 1529 EST Elli, Thank you. Patient hasn't been seen here yet, so I am unable to fax a note. I do have a faxed request from [facility] and I will fax once Lindsay sees him on . * Telephone Encounter - Elli Sanders - 08/28/2021 1524 EST [facility] is requesting last prog note to get a PA on medication abiraterone 250mg. Fax number is [phone]. Thanks. documented in this encounter Plan of Treatment Not on file documented as of this encounter Visit Diagnoses Not on filedocumented in this encounter
--- OUTSIDE RECORDS SUMMARY | 2024-07-09 11:02 | XMS_ITS | Encounter Summary ---
Author Organization [facility] Address [address] [place] [address] Care Team Providers Care Auto Transmission Mechanic Name Role Phone Unavailable Primary Care Provider Unavailabl e Encounter Details Date Type Department Care Team (Late st Contact Info) Description 09/11/2021 Results Only [facility] Radiation Oncology - [facility] [address] [place] [address] Unknown, Provider, MD Social History Tobacco Use [...] Comments RAD ONC ARIA SESSION SUMMARY Routine 09/11/2021 10:45 EST documented in this encounter Results * RAD ONC ARIA SESSION SUMMARY (09/11/2021 10:45 EST) Course ID C1 ARIA RADIATION ONCOLOGY Course First Treatment Date 09/11/2021 10:37 ARIA RADIATION ONCOLOGY Course Last Treatment Date 09/11/2021 10:45 ARIA RADIATION ONCOLOGY Course Elapsed Days 0 ARIA RADIATION ONCOLOGY Reference Point ID PELVIC NODES ARIA RADIATION ONCOLOGY Reference Point Dosage Given to Date 1.8 Gy ARIA RADIATION ONCOLOGY Reference Point Session [...] ONCOLOGY Reference Point Dosage Given to Date 1.8 Gy ARIA RADIATION ONCOLOGY Reference Point Session [...] Reference Point PROSTATE BED ARIA RADIATION ONCOLOGY 09/11/2021 10:4 5 EST us Provider Unknown RADIATION ONCOLOGY ORDERABLE S Final Result ARIA RADIATION ONCOLOGY documented in this encounter Visit Diagnoses Not on filedocumented in this encounter
--- OUTSIDE RECORDS SUMMARY | 2024-07-09 11:02 | XMS_ITS | Encounter Summary ---
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
--- OUTSIDE RECORDS SUMMARY | 2024-07-09 11:02 | XMS_ITS | Encounter Summary ---
Author Organization [facility] [place] [address] Care Team Providers Care Plating Tank Operator Apprentice Name Role Phone Reji Adams MD Primary Care Provider [phone] Encounter Details Date Type Department Care Team (Latest Contact Info) Description 07/05/2024 11:55 AM EST Laboratory Appointment Lab at [facility] [address] [place] [phone] Prostate cancer metastatic to intrapelvic lymph node; Malignant neoplasm prostate; Erectile dysfunction, unspecified erectile dysfunction type Social History Tobacco Use Types Packs/Day Years Used Date Smoking Tobacco: Never Smokeless Tobacco: Current Chew Comments:3 cans/ week. Alcohol Use Standard Drinks/Week Comments Not Currently 0 (1 standard drink = 0.6 oz pur e alcohol) [facility] Utilities Answer Date Recorded In the past 12 months has [employer], gas, oil, or water [employer] threatened to shut off services in your [...] place to sleep or slept in a detention (including now)? Patient declined 12/10/2023 Sex and Gender Information Value Date Recorded Sex Assigned at Choose not to disclose 02/2023 8:26 AM EDT Gender Identity Not on file Sexual Orientation Choose not to disclose 2022 8:26 AM EDT documented as of this encounter Plan of Treatment Upcoming Encounters Date Type Department Care Team (Late st Contact Info) Description 12/15/2024 11:30 AM EDT Office Visit [place] [address] Charline Ziegler MD [facility] [place] [address] documented as of this encounter Procedures Procedure Name Priority Date/Time Associated Diagnosis Comments PSA (ULTRASENSITIVE) Routine 07/05/2024 12:03 PM EST Malignant neoplasm prostate Erectile dysfunction, unspecified erectile dysfunction type documented in this encounter Results * PSA (Ultrasensitive) (07/05/2024 12:03 PM EST) Prostate Specific Antigen (Ultrasensitive) <0.01 0.00-4.00 ng/mL ng/ml 07/05/2024 5:58 PM EST [facility] Comment:The reference interv al [...] Javid Almanza II, MD CHEMISTRY ORDER DALILA [facility] [place] [address] documented in this encounter Visit Diagnoses Diagnosis Prostate cancer metastatic to intrapelvic lymph node Malignant neoplasm prostate Malignant neoplasm of prostate Erectile dysfunction, unspecified erectile dysfunction type documented in this encounter Care Teams Plating Tank Operator Apprentice Relationship Specialty Start Date End Date Reji Adams MD [facility] GENERAL [place] [address] PCP - General General Internal Medicine 07/13/15 documented as of this encounter
--- OUTSIDE RECORDS SUMMARY | 2024-07-09 11:02 | XMS_ITS | Encounter Summary ---
Author Organization [facility] Address [address] [place] [address] Care Team Providers Care Falsework Builder Name Role Phone Unavailable Primary Care Provider Unavailabl e Reason for Visit * Reason Onset Date Comments Abnormal Radiology Findings 07/03/2021 Encounter Details Date Type Department Care Team (Late st Contact Info) Description 07/03/2021 Telephone [facility] Cancer [facility] [address] [place] [address] Manuel White MD [address] [facility] [address] [place] [address] Abnormal Radiology Findings Social History Tobacco Use Types Packs/Day Years [...] Telephone Encounter - Manuel White MD - 07/03/2021 5027 EST Called back Ken has he had a PSMA PET scan at [facility] 07/02/21 and evaluation in radiation oncology and medical oncology by Dr. Leonid Tipton and Dr. Desai, respectively at [facility]. PET showed possible L2 and pelvic node recurrence of prostate cancer s/p prostatectomy. A recommendation was made for lumbar spine MRI and the patient prefers to have it at this hospital,[facility]. I have requested the MRI L spine here. Dr. Desai and Saeed had recommended abiraterone prednisone with potential radiation to pelvic nodes and L2 disease if that is confirmed to be oligometastatic prostate cancer. Patient is concerned aboutthe cost of abiraterone and that is to be further evaluated. documented in this encounter Plan of Treatment Not on file documented as of this encounter Visit Diagnoses Not on filedocumented in this encounter
--- OUTSIDE RECORDS SUMMARY | 2024-07-09 11:02 | XMS_ITS | Encounter Summary ---
Author Organization [facility] Address [facility] [place] [address] Care Team Providers Care Interactive Marketing Strategist Name Role Phone Reji Adams MD Primary Care Provider [phone] Reason for Visit * Reason Onset Date Comments Medication Refill 06/21/2024 Encounter Details Date Type Department Care Team (Late st Contact Info) Description 06/21/2024 Refill Internal Medicine at [address] [address] Reji Adams MD [facility] [place] [address] Anxiety Social History Tobacco Use Types Packs/Day Years Used Date Smoking Tobacco: Never Smokeless Tobacco: Current Chew Comments:3 cans/ week. Alcohol Use Standard Drinks/Week Comments Not Currently 0 (1 standard drink = 0.6 oz pur e alcohol) [facility] Utilities Answer Date Recorded In the past 12 months has [employer], gas, oil, or water [employer] threatened to shut off services in your [...] place to sleep or slept in a chcf (including now)? Patient declined 12/10/2023 Sex and Gender Information Value Date Recorded Sex Assigned at Choose not to disclose 02/2023 8:26 AM EDT Gender Identity Not on file Sexual Orientation Choose not to disclose 2022 8:26 AM EDT documented as of this encounter Miscellaneous Notes * Telephone Encounter - Mahsa Gomez, [facility] - 06/23/2024 10:39 AM EST Date: 06/23/2024 Requested Prescriptions Pending Prescriptions Disp Refills ALPRAZolam (Xanax) 0.25 mg tablet 70 tablet 0 Sig: Take 1 tablet by mouth 3 times daily as needed for Anxiety. Pharmacy: [id number] - [place], [place] Benzodiazepine Agreement signed (at least once): Not on file 06/21/2024 10:10 PM 05/28/2024 3:57 PM 04/28/2024 8:54 AM 04/02/2024 5:02 PM 03/09/2024 8:54 AM 02/09/2024 5:14 PM 01/13/2024 7:03 AM Opioid PDMP [place] PDMP Query Date 06/23/2024 05/29/2024 04/30/2024 04/05/2024 03/09/2024 02/10/2024 01/13/2024 [place] PDMP Query Date 06/23/2024 05/29/2024 04/30/2024 04/05/2024 03/09/2024 [place] PDMP Query Date 06/23/2024 05/29/2024 04/30/2024 04/05/2024 03/09/2024 PDMP (once per year) Any scripts from non- provider: No Last Filled (date, medication, quantity): Filled 05/30/2024, QTY 70 per [place]. Next fill 06/29/2024. Last Med Check OV: 12/11/23 annual with Reji Adams MD Patient needs to be seen on or before (q1y): N/A documented in this encounter Plan of Treatment Upcoming Encounters Date Type Department Care Team (Late st Contact Info) Description 12/15/2024 11:30 AM EDT Office [place] [address] Charline Ziegler MD [facility] [place] [address] documented as of this encounter Visit Diagnoses Diagnosis Anxiety Anxiety state, unspecified documented in this encounter Care Teams Interactive Marketing Strategist Relationship Specialty Start Date End Date Reji Adams MD [facility] [place] [address] PCP - General General Internal Medicine 07/13/15 documented as of this encounter
--- OUTSIDE RECORDS SUMMARY | 2024-07-09 11:02 | XMS_ITS | Encounter Summary ---
Author Organization [facility] Address [address] [place] [address] Care Team Providers Care Driver Education Road Instructor Name Role Phone Unavailable Primary Care Provider Unavailabl e Reason for Visit * Reason Onset Date Comments Appointment Related 08/07/2021 Encounter Details Date Type Department Care Team (Late st Contact Info) Description 08/07/2021 Telephone [facility] Adult Hematology & Oncology [address] [place] [address] Augusta Meade Appointment Related Social History Tobacco Use Types [...]
--- OUTSIDE RECORDS SUMMARY | 2024-07-09 11:02 | XMS_ITS | Encounter Summary ---
Author Organization [facility] Address [address] [place] [address] Care Team Providers Care Retail Advisor Name Role Phone Unavailable Primary Care Provider Unavailabl e Encounter Details Date Type Department Care Team (Late st Contact Info) Description 03/01/2016 Results Only [facility] [phone] Unknown, Provider, Social History Tobacco Use Types [...] documented in this encounter Plan of Treatment Pending Results Name Type Priority Associated Diagnoses Date /Time OUTSIDE CD - CT NEURO Imaging 11/2015 8:42 EDT OUTSIDE CD - PLAIN FILM [facility] Imaging 03/01/2016 8:42 EDT OUTSIDE CD - MRI NEURO Imaging 8:42 EDT OUTSIDE CD - MRI [facility] Imaging 11/2015 8:42 EDT documented as of this encounter Visit Diagnoses Not on filedocumented in this encounter
--- OUTSIDE RECORDS SUMMARY | 2024-07-09 11:02 | XMS_ITS ---
Author Organization [facility] [place] [address] Care Team Providers Care Sample Sewer Name Role Phone Reji Adams MD Primary Care Provider [phone] Active Problems Patient Care Coordination No te Formatting of this note is d ifferent from the original. Patient on reminder list for controlled medications: Medication Xanax 0.25 [facility]acy [id number] Agreement No benzo on file UDS N/A [...] Prostate cancer metastatic to intrapelvic lymph node Current Oncology Plans [facility], [facility] HEMON DEGARELIX NEW PATIENT INDUCTION* Plan Start Date: 08/15/2021 Plan Provider:Mike Louise MD Linked Problems Prostate cancer metastatic t o intrapelvic lymph node Treatment Medications No medications scheduled. Past Plans No past plan information found. Radiation Treatments * No radiation treatments are documented for this patient in [facility]. Treatments may have been administered in another system. Resolved Problems Problem Noted Date Diagnosed Date [...]
--- OUTSIDE RECORDS SUMMARY | 2024-07-09 11:02 | XMS_ITS | Encounter Summary ---
Author Organization [facility] Address [address] [place] [address] Care Team Providers Care Management Accountant Name Role Phone Unavailable Primary Care Provider Unavailabl e Encounter Details Date Type Department Care Team (Latest Contact Info) Description 09/06/2021 17:15 EST - 09/06/2021 23:59 EST Hospital Encounter [facility] Cancer Treatment [facility] [address] [place] [address] Discharge Disposition: Home or Self Care Social [...]
--- OUTSIDE RECORDS SUMMARY | 2024-07-09 11:02 | XMS_ITS | Encounter Summary ---
Author Organization [facility] Address [address] [place] [address] Care Team Providers Care Salvage Inspector Name Role Phone Unavailable Primary Care Provider Unavailabl e Reason for Referral * Radiology Services (Routine) - Closed Specialty Diagnoses / Procedures Referred By Duglas arizmendi Referred To Contact Diagnoses Neck pain Procedures CERVICAL SPINE 4 OR MORE VIEWS Tomas Coker MD Phone: tel: fax: Referral ID Status Reason Start Date Expiration Date Visits Re quested Visits Authorized [id number] Closed 03/18/2016 1 1 Reason for Visit * Reason Onset Date Comments Pre-visit Orders 03/18/2016 Encounter Details Date Type Department Care Team (Late st Contact Info) Description 03/18/2016 Orders Only [facility] Spine Program - [address] [place] [address] Tomas Coker MD [address] [place] [phone] Neck pain (Primary Dx) Social History Tobacco Use Types [...] Procedure Name Priority Date/Time Associated Diagnosis Comments CERVICAL SPINE 4 OR MORE VIEWS Routine 03/29/2016 8:25 EDT Neck pain documented in this encounter Results * CERVICAL SPINE 4 OR MORE VIEWS (03/29/2016 8:25 EDT) Anatomical Region Laterality Modality Other 03/29/2016 8:25 EDT 03/29/2016 11:30 EDT Narrative 03/29/2016 11:30 EDT Plain film cervical spine ? History: Neck and right arm pain with numbness Comparison: CT 11/29/2015 Findings: 4 views, AP, lateral, flexion and extension. There is no acute fracture. Anterior screw-plate fixation from C3-C5 is redemonstrated. There is no hardware failure or periprosthetic lucency. A grade 1 anterolisthesis of C5 upon C6 is similar when compared to prior study. Disc height loss at C2-3 as well as C6-7 and C7-T1 with marginal osteophytes are redemonstrated. The facet joints are diffusely hypertrophic. The prevertebral soft tissues and atlantodental interval are within normal limits. The visualized portions of the lung apices are clear. A 2 cm calcified density in the left submandibular region was present on the prior study but only partially visualized and likely represents a left submandibular calculus. Conclusion: Stable postoperative changes of anterior screw and plate fixation from C3-C5 No instability or acute fracture. Diffuse cervical facet osteoarthritis. Degenerative disc disease at C2-3, C5-6, C6-7 and C7-T1. Procedure Note Chet Lea DO - 03/29/2016 Plain film cervical spine History: Neck and right arm pain with numbness Comparison: CT 11/29/2015 Findings: 4 views, AP, lateral, flexion and extension. There is no acute fracture. Anterior screw-plate fixation from C3-C5 is redemonstrated. There is no hardware failure or periprosthetic lucency. A grade 1 anterolisthesis of C5 upon C6 is similar when compared to prior study. Disc height loss at C2-3 as well as C6-7 and C7-T1 with marginal osteophytes are redemonstrated. The facet joints are diffusely hypertrophic. The prevertebral soft tissues and atlantodental interval are within normal limits. The visualized portions of the lung apices are clear. A 2 cm calcified density in the left submandibular region was present on the prior study but only partially visualized and likely represents a left submandibular calculus. Conclusion: Stable postoperative changes of anterior screw and plate fixation from C3-C5 No instability or acute fracture. Diffuse cervical facet osteoarthritis. Degenerative disc disease at C2-3, C5-6, C6-7 and C7-T1. us Tomas Coker MD IM DI[facility]NOSTIC [facility] Final Result documented in this encounter Visit Diagnoses Diagnosis Neck pain- Primary Cervicalgia documented in this encounter
--- OUTSIDE RECORDS SUMMARY | 2024-07-09 11:02 | XMS_ITS | Encounter Summary ---
Author Organization [facility] Address [address] [place] [id number] Care Team Providers Care Leak Inspector Name Role Phone Unavailable Primary Care Provider Unavailabl e Reason for Visit * Reason Comments Prostate Cancer Encounter Details Date Type Department Care Team (Late st Contact Info) Description 08/27/2021 10:30 EST Office Visit [facility] [address] [address] Manuel White MD [address] [place] [address] [address] [place] [address] Prostate cancer (HCC-CMS) (HCC) (HCC-CMS) [...] Sign Reading Time Taken Comments Blood Pressure 133/73 08/27/2021 1034 EST Pulse - - Temperature - - Respiratory Rate - - Oxygen Saturation - - Inhaled Oxygen Concentration - - Weight 85.7 kg (189 lb) 08/27/2021 1034 EST Height - - Body Mass Index 26.74 03/29/2016 0847 EDT documented in this encounter [...] in this encounter Progress Notes * Manuel hWite MD - 08/27/2021 1030 EST Images from the original note were not included. Division of Radiation Oncology- FOLLOW-UP NOTE Date of Service: 08/27/2021 Diagnosis/Stage: Cancer Staging Prostate cancer ([facility]) ([facility]) Staging form: Prostate, AJCC 8th Edition - Pathologic stage from 05/18/2019: Stage IIIC (pT2, pN0, cM0, PSA: 8.1, Grade Group: 5) - Signed by Manuel White MD on 08/27/2021 - Clinical: No stage assigned - Unsigned Oncology History Prostate cancer ([facility]) ([facility]) 11/25/2020 Cancer Staged Decipher Score 0.90 08/27/2021 Initial Diagnosis Prostate cancer ([facility]) ([facility]) Impression: Mr. Mckeon has Hustisford 9 prostate cancer with prostatectomy in 2019 and biochemical PSA failure with recent PSA of 0.25. PSMA PET in [place] ([facility]) by report showed primarily right pelvic PET avid small nodes without prostate bed or distant disease. I reviewed the images in radiology at [facility] today and the PET avid nodes are difficult to see on the fusion images provided in our PACS system. No doubt the PET workstation the primary radiology department imaging is more detailed. Prostate bed and regional jose radiation has been recommended at [facility] and also in [place] where he began Eligard approximately 3 weeks ago. Long-term (1-2 years) of ADT with consideration of abiraterone/Zytiga has been recommended.. The patient lives closer tor [facility] but prefers to be treated with radiation in this department. He alsowould like to be evaluated in medical oncology locally to receive abiraterone if possible. He is concerned about the financial implications of abiraterone. Today we again reviewed the rationale, process and role of salvage radiation and informed consent was obtained. Acutely he may experience bladder and rectal irritation, fatigue, compromise in urinaryflow, dysuria or hemorrhoidal inflammation. Late effects could include radiation proctitis/cystitis, urethral stricture, incontinence, induction of a second malignancy, impotence, fistula or need forsurgery. Other side effects were placed into proper perspective Recommendations: 1. CT simulation is to be performed today for IMRT VMAT radiation to the prostate bed regional pelvic nodes targeting the PSMA avid sites. He will likely be treated to a boosted dose of 68-70 Gy overapproximately 7 weeks. 2. Patient requests medical oncology evaluation at [facility]. I spoke with Dr. Lindsay Espino, medical oncology [facility], today regarding the previous recommendations of 2 years of abiraterone with androgen suppression for 1-2 years given his jose recurrence, Hustisford 9 and high decipher score. An appointment will be scheduled with Dr. Espino in the next few weeks. 3. Ting Waller will see him as pt naviigator History of Presenting Illness: Mr. Ken Mckeon is has Sinan 9 prostate cancer with prostatectomy in 2019 and rising PSA. ??? 02/25/[address] Tobias Singh at [facility] when his PSA had increased to4.7. Patient was experiencing urinary frequency and dribbling and urinating up to 17 times during the day but had nocturia of 1-2 times. Prostate exam was without nodularity. Postvoid residual was 100 cc. ??? 04/07/[address] Singh revealed no evidence of malignancy with a single corein the right lateral mid showing atypical glands. The prostate was 34 cc and there were no hypoechoic lesions. ??? 06/18/2017 CT abdomen pelvis at [facility] to evaluate abdominal pain showed no evidence of adenopathy, bowel concerns or bony lesions. ??? He continued urology follow-up and PSA was noted to increase. ??? 12/16/18 multiparametric MRI at [facility] showed a PI-RADS 5 lesion in the anterior peripheral zone at the base and mid gland measuring 1.5 x 0.9 x 1.2cm minimally bulging the prostate contour without extraprostatic extension. The prostate was estimated to be 46.4 cc. There was no bony or jose abnormality. ??? 02/08/2019 MRI fusion directed prostate biopsy was performed with the standard sector cores all negative but 3 of 3 fusion directed biopsy cores revealed Sinan 4+4 adenocarcinoma. 15 cores were obtained. ??? 02/22/2019 bone scan at [facility] showed no evidence of metastatic disease. ??? 03/01/2019 Dr. Rayo Davis evaluated him in radiation oncology at [facility]. Patient was felt to have clinical T1c N0 M0 staging and surgery versus radiation plus androgen suppression options were reviewed. ??? 03/24/19 [facility] urology evaluation by Dr. Zurdo Ortiz. [facility] pathology review upgraded the fusion directed prostate biopsies to Hustisford 4+5, group 5. ??? 04/07/19 Evaluation [facility] with Dr. Rigo Rocha. ??? 05/18/2019 he underwent a radical prostatectomy at [facility] in [place] by Dr. Rigo Rocha. Pathology revealed pathologic stage T2N0 with negative margins and 0 of 8 nodes were involved. Hustisford 4+5 adenocarcinoma was seen. ??? 08/2020 PSA levels, as below were 0.05 and 0.08. ??? 11/30/20 [facility] angiogram chest and abdomen to evaluate [...] spine. There is no evidence of adenopathy. ??? 12/04/2020 I evaluated him in this department. He was scheduled to be seen in December by Dr. Rayo Davis in radiation oncology at [facility]. Following prostatectomy he healed rapidly he reports that he is without stress urinary incontinence. He noted decline in his erection function since prostatectomy and Viagra and other medications have not helped. She a plan to repeat PSA and consider Axumin PET his PSA louisa was discussed. ??? 12/08/2020 MRI cervical, thoracic and lumbar spine showed a anterior cervical fusion from C3-C5.There is no evidence of metastatic disease with instrumented posterior fusion from L4-S1. There is no retroperitoneal adenopathy or significant spinal canal stenosis. Mild bilateral foraminal narrowing at L2-3 and L3-4 was present. ??? 12/14/20 MRI abdomen showed in the right kidney a 1.6 cm cystic lesion in the interpolar cortex without enhancement that was homogeneous T2 hyperintense and T1 hypointense which corresponded to a Bosniak II right renal cyst requiring no additional follow-up. A 4 mm T2 hyperintense, nonenhancing cystic lesion in the head of the pancreas appear to communicate with the main pancreatic duct compati ble with a tiny branch duct IPMN. There was no adenopathy and the liver showed nonenhancing cysts. Simple cysts were seen in the left kidney without evidence of hydronephrosis. ??? Dr. Rickey Price, Radiation Oncology, [facility] obtained Decipher testing with high risk0.90 score. ??? I contacted Dr. Zurdo Ortiz, Urology [facility], who saw the patient pre- prostatectomy. Dr. Ortiz agreed to have the patient evaluated at the multidisciplinary clinic at [facility] with a plan for PSMA PET at [facility]. ??? 06/07/2021 the patient was seen by Dr. Tipton at [facility] radiation oncology and Dr. Nehemias Desai ([facility] medical oncology). PSMA PET scan was arranged. ??? 06/29/2021 PSMA PET Pelvic Organs: Limited assessment due to artifact from bilateral hip prostheses. Lymph Nodes: Avid focus in the right hemipelvis on image 288, likely ureter. ??Milder avidity along??the right pelvic sidewall/external iliac station with soft tissue nodularity, for example on , 12x18 mm with avidity that is lesser [...] nonetheless raising concern for a metastatic deposit. ??? 07/12/2021 [facility]quin day MRI spine. No evidence of osseous metastasis in the lumbar spine withmild lumbar spondylosis. ??? Dr. Desai recommended aggressive ADT treatment including 2 years of abiraterone. ??? 07/31/2021 Dr. Rayo Davis I reevaluate the patient at [facility] radiation oncology. Recent PSAwas 0.253 with a calculated doubling time of [address] Davis recommended ADT and radiation with lal to include the prostate bed and draining lymphatics with targeting of the avid site seen on PSMA-PET. Dr. Davis planned tumor board review. Dr. Kimble for discussed ADT in combination with abiraterone with salvage radiation and considered course (2 years) ADT given jose involvement. Beginning bicalutamide and Lupron was offered. Dr. Davis recommended MRI pelvis and DEXA scan. Date PSA 11/19/2013 2.71 07/07/2015 3.40 02/2017 6.19 09/2017 6.62 10/2018 8.11 05/18/19 prostatectomy 08/29/20 0.05 09/21/20 0.08 11/03/20 0.09 01/08/21 0.14 02/07/21 0.172 05/07/21 0.253 (Doubling Time=4.7 months, last 3) Interval History: He is seen in the office today and interval history is significant for beginning Eligard androgen suppression with a 3-month injection approximately 3 weeks ago. Thus far he has tolerated well. As noted above interval history is significant for evaluation at [facility] with Dr. Davis about 4 weeks ago. Patient does live closer to [facility] as his home is in [place], [place] but he would like to receive radiation in this department. He also would like to pursue the option of abiraterone if itis not cost prohibitive based on prior medical oncology recommendations. Objective: Vitals: 08/27/21 1034 BP: 133/73 BP Cuff Location: Right arm Weight: 85.7 kg (189 lb) Wt Readings from Last 3 Encounters: 03/29/16 98.4 kg (217 lb) 02/21/16 (!) 102.1 kg (225 lb) ECOG performance Status: (0) Fully active, able to carry on all predisease performance without restriction Exam was deferred. Lab Results: No results found for: WBC, HGB, HCT, PLT, ALT, AST, NA, K, CL, CREATININE, BUN, CO2, TSH, PSA Imaging: I spent a total of 45 minutes on the date of this encounter meeting with the patient and reviewing documentation/coordinating care as described in the above note. This was separate from any procedures performed at the time of the visit. Manuel White MD Radiation Oncology-[facility] [place] [facility] (p) [phone] / (f) [phone] documented in this encounter Plan of Treatment Not on file documented as of this encounter Visit Diagnoses Diagnosis Prostate cancer ([facility])- Primary Malignant neoplasm of prostate documented in this encounter Discontinued Medications Medication Sig Discontinue Reason Start Date End Da te ciprofloxacin HCl (CIPRO) 250 mg tablet Take 250 mg by mouth 2 times daily. Therapy completed 08/27/2021 documented as of this encounter Historical Medications * This list may reflect changes made after this encounter. leuprolide (ELIGARD, 3 MONTH,) 22.5 mg injection Inject 1 mg into the skin once. 08/06/2021 bicalutamide (CASODEX) 50 mg tablet Take 50 mg by mouth daily. 09/05/2021 added in this encounter
--- OUTSIDE RECORDS SUMMARY | 2024-07-09 11:02 | XMS_ITS | Encounter Summary ---
Author Organization [facility] Address [address] [place] [address] Care Team Providers Care Recycling Manager Name Role Phone Unavailable Primary Care Provider Unavailabl e Reason for Visit * Reason Onset Date Comments Paperwork request 03/07/2016 Encounter Details Date Type Department Care Team (Late st Contact Info) Description 03/07/2016 Telephone [facility] - [address] [place], [place] [id number] Puneet Toure [address] [place] [id number] Paperwork request Social History Tobacco Use Types Packs/Day Years [...] 02/21/2016 9:52 EDT documented in this encounter Miscellaneous Notes * Telephone Encounter - Meagan Santana - 03/07/2016 1145 EDT Ken combs requesting Dr. Toure's last OV note be sent to referring Neurology office in [place] attn: Karma fax: [phone]. Note sent. Meagan Santana documented in this encounter Plan of Treatment Not on file documented as of this encounter Visit Diagnoses Not on filedocumented in this encounter
--- OUTSIDE RECORDS SUMMARY | 2024-07-09 11:02 | XMS_ITS | Encounter Summary ---
Author Organization [facility] Address [address] [place] [address] Care Team Providers Care Pleat Taper Name Role Phone Unavailable Primary Care Provider Unavailabl e Reason for Visit * Reason Comments New Patient Visit Encounter Details Date Type Department Care Team (Late st Contact Info) Description 09/05/2021 14:00 EST Office Visit [facility] Adult Hematology & Oncology [address] [place] [id number] [place] [id number] [facility] [address] [place] [address] (Fax) Prostate cancer ([facility]) (HCC) ([facility]) (Primary Dx) Social History Tobacco Use Types [...] Reading Time Taken Comments Blood Pressure 118/78 09/05/2021 1352 EST Pulse 78 09/05/2021 1352 EST Temperature - - Respiratory Rate - - Oxygen Saturation 98% 09/05/2021 1352 EST Inhaled Oxygen Concentration - - Weight 87.5 kg (193 lb) 09/05/2021 1352 EST Height - - Body Mass Index [...] 90 days. 30 Tablet 09/05/2021 10/02/2021 documented in this encounter Progress Notes * Lindsay Epsino MD - 09/05/2021 1400 EST NEW PATIENT PATIENT: Ken Mckeon HISTORY OF PRESENT ILLNESS Oncology History Prostate cancer ([facility]) ([facility]) 07/19/2006 Initial Diagnosis Prostate cancer 07/19/2006 Initial [...] cM0, PSA: 7.3, Grade Group: 5, 02/08/19, [place]: 4, +: 5) 02/22/2019 - Cancer Staged February 22, 2019: Nuclear medicine bone scan at [facility] showed no evidence of bony metastatic disease 05/18/2019 Surgery 05/18/2019 Surgery May 18, 2019: Radical prostatectomy with pathology reviewed at [facility] showed [place] 4+5 involving 10% of the prostate. There [...] the lumbar spine with mild lumbar spondylosis. Ken Mckeon is a pleasant 75 y.o. male referred by Dr. White for prostate cancer. Oncologic history outlined above. Patient denies any complaints today. He overall feels well. He received Lupron shot on 08/10/2021 and completed bicalutamide prescription yesterday. He is occasionally having some hot flashes. Denies any chest pain, shortness of breath or abdominal pain. PROBLEM LIST Patient Active Problem List Diagnosis ??? Right upper extremity numbness ??? Prostate cancer (HCC-CMS) (HCC) PAST HISTORY Past Medical History: Diagnosis Date ??? Asthma ??? Prostate cancer (HCC-CMS) (HCC) Past Surgical History: Procedure Laterality Date ??? BACK SURGERY 1989 ??? CARPAL TUNNEL RELEASE Bilateral 1975 ??? HERNIA REPAIR ??? JOINT REPLACEMENT Bilateral 04/2020 Hip Replacement ??? KNEE SURGERY Right 1964 ??? PROSTATECTOMY 05/18/2019 ??? SHOULDER SURGERY Right 1986 ??? SHOULDER SURGERY Left 1990 rotator cuff ??? TONSILLECTOMY ??? VASCULAR SURGERY Bilateral 1964 Veins stripped ??? VASECTOMY Family History Problem Relation Age of Onset ??? Cancer Mother ??? Aneurysm Brother Social History Tobacco Use ??? Smoking status: Never Smoker ??? Smokeless tobacco: Current User Types: Chew Substance Use Topics ??? Alcohol use: Yes Comment: RARE ??? Drug use: Not on file Social History Social History Narrative ??? Not on file MEDICATIONS Current Outpatient Medications Medication Sig Dispense Refill Last Dose ??? abiraterone 250 mg tablet Take 4 Tablets by mouth daily. (Patient not taking: Reported on 09/05/2021) 30 Tablet 2 Not Taking ??? ALPRAZolam (XANAX) 0.25 mg tablet [...] daily for 90 days. 30 Tablet 0 No current facility-administered medications for this visit. ALLERGIES Allergies Allergen Reactions ??? Penicillins Anaphylaxis ??? Betamethasone Hiccups ??? Dexamethasone Urinary Obstruction Other reaction(s): hiccups Hiccups after injection Hiccups after injection ??? Triamcinolone Acetonide Hiccups REVIEW OF SYSTEMS Constitutional: Negative. Negative for chills and fever. HENT: Negative for congestion, sore throat and tinnitus. Eyes: Negative for pain and discharge. Respiratory: Negative for cough, chest tightness and shortness of breath. Cardiovascular: Negative for chest pain and palpitations. Gastrointestinal: Negative for abdominal distention, abdominal pain, blood in stool and diarrhea. Endocrine: Negative. Genitourinary: Negative for dysuria, flank pain and hematuria. Musculoskeletal: Negative. Skin: Negative. Neurological: Negative for dizziness, tremors and seizures. Hematological: Negative for adenopathy. Does not bruise/bleed easily. Psychiatric/Behavioral: Negative. VITALS Vitals: 09/05/21 1352 BP: 118/78 Pulse: 78 SpO2: 98% Weight: 87.5 kg (193 lb) Last 5 Weights Filed This Admission 09/05/21 1352 Weight: 87.5 kg (193 lb) Performance Status: (0) Fully active, able to carry on all predisease performance without restriction PHYSICAL EXAM Physical Exam Constitutional: He is oriented to person, place, and time. He is cooperative. HENT: Head: Normocephalic and atraumatic. Eyes: Conjunctivae and EOM are normal. Cardiovascular: Normal rate and regular rhythm. Pulmonary/Chest: Breath sounds normal. Abdominal: Soft. There is no abdominal tenderness. Musculoskeletal: Cervical back: Normal range of motion. Neurological: He is alert and oriented to person, place, and time. Skin: Skin is warm and dry. Psychiatric: He has a normal mood and affect. DIAGNOSIS The encounter diagnosis was Prostate cancer (HCC-CMS) (HCC). ASSESSMENT 75-year-old male who is s/p radical prostatectomy in April 2019 for diagnosis of localized prostate cancer with rising PSA and PET scan showing possible lymph node recurrence. 1. Recurrent prostate cancer s/p radical prostatectomy. PET scan at [facility] showed mild FDG uptake particularly in the larger right external iliac lymph node concerning for metastasis. Given thelymph node recurrence and high decipher score, I concur with Dr. Desai recommendation on including abiraterone along with ADT plus radiation. This will be administered for a total duration of 2 years. Abiraterone an orally administered drug that blocks synthesis of androgens in the tumor as well as in the testis and adrenal glands. It inhibits the enzyme 17 alpha hydroxylase. There can be a compensatory rise in ACTH due to decrease in cortisol by the enzyme inhibition. The increase in ACTH can increase mineralocorticoid production which can lead to hypertension and hypokalemia. These affects could be attenuated by prednisone and I recommended that he starts prednisone 5 mg daily along with this drug. Other possible toxicities are abnormal liver function tests, fluid retention, fatigue, hyperglycemia and hot flashes. Received first shot of Lupron on 08/10/2021. PLAN 1. Baseline blood work today. 2. He will start abiraterone and prednisone as soon as he gets the prescription. 3. Monitor electrolytes and LFTs at least every 2 weeks for the first 2 months. 4. He will continue Lupron under the supervision of Dr. White. Scheduled to start radiation on 09/11/2021. 5. Return for follow-up in 3 weeks. Other Orders Placed This Visit Procedures ??? Complete Blood Count and Differential ??? Comprehensive Metabolic Panel (CMP) Requested Prescriptions Signed Prescriptions Disp Refills ??? predniSONE (DELTASONE) 5 mg tablet 30 Tablet 0 Sig: Take 1 Tablet by mouth daily for 90 days. Lindsay Espino MD Hematology/Oncology /[facility] CC: Dr. White, Dr. Reji Adams, Dr. Desai- [facility] documented in this encounter Plan of Treatment Not on file documented as of this encounter Procedures Procedure Name Priority Date/Time Associated Diagnosis Comments COMPLETE BLOOD COUNT AND DIFFERENTIAL Routine 09/05/2021 14:33 EST Prostate cancer (HCC-CMS) (HCC) (HCC-CMS) COMPREHENSIVE METABOLIC PANEL (CMP) Routine 09/05/2021 14:33 EST Prostate cancer (HCC-CMS) (HCC) (HCC-CMS) documented in this encounter Results * COMPREHENSIVE METABOLIC PANEL (CMP) (09/05/2021 14:33 [facility]) Sodium 138 136 - 145 mmol/L 09/05/2021 17:29 [facility] Potassium 4.4 3.5 - 5.0 mmol/L 09/05/2021 17:29 [facility] Chloride 100 96 - 110 mmol/L 09/05/2021 17:29 [facility] CO2 Total 27 22 - 32 mmol/L 09/05/2021 17:29 [facility] Glucose 96 70 - 100 mg/dL 09/05/2021 17:29 [facility] BUN 18 10 - 26 mg/dL 09/05/2021 17:29 [facility] Creatinine 0.86 0.66 - 1.25 mg/dL 09/05/2021 17:29 [facility] eGFR 85 >60 mL/min/1.7 3m2 09/05/2021 17:29 [facility] Total Protein 6.8 6.3 - 8.2 g/dL 09/05/2021 17:29 [facility] Albumin 4.3 3.4 - 4.9 g/dL 09/05/2021 17:29 [facility] Alkaline Phosphatase 57 38 - 126 U/L 09/05/2021 17:29 [facility] AST 42 15 - 46 U/L 09/05/2021 17:29 [facility] ALT 20 <50 U/L 09/05/2021 17:29 [facility] Bilirubin, Total 0.8 <1.4 mg/dL 09/05/19 17:29 [facility] Calcium 9.3 8.5 - 10.5 mg/dL 09/05/2021 17:29 [facility] Albumin/Globulin Ratio 1.7 1.0 - 2.5 09/05/2021 17:29 [facility] Anion Gap 11 5 - 14 09/05/2021 17:29 [facility] Blood VENOUS BLOOD / Unknown Venipuncture / Unknown 09/05/2021 14:33 EST 09/05/2021 14:33 EST Lindsay Espino MD CHEMISTRY & BLOOD GAS ORDERAB LES Final Result [facility] [address] [place] [address] * (ABNORMAL) COMPLETE BLOOD COUNT AND DIFFERENTIAL (09/05/2021 14:33 EST) WBC 6.89 4.00 - 10.40 K/cmm 09/05/2021 14:36 [facility] HEMATOLOGY & [facility] RBC 4.73 4.36 - 5.78 M/cmm 09/05/2021 14:36 [facility]AT[facility] Hemoglobin 14.6 13.8 - 17.3 gm/dL 09/05/2021 14:36 [facility] ONCOLOGY [facility] HCT 42.4 39.5 - 50.2 % 09/05/2021 14:36 [facility] HEMATOLOGY & [facility]COL[facility] MCV 90 81 - 95 fl 09/05/2021 14:36 [facility] HEMATOLOG[facility] & [facility]COL[facility] MCH 30.9 27.6 - 33.0 pg 09/05/2021 14:36 [facility] & ONCOLOGY [facility] MCHC 34.4 32.8 - 36.4 gm/dL 09/05/2021 14:36 [facility] ON[facility] RDW-CV 14.1 <14.2 % 09/05/2021 14:36 [facility] & ONCOLOG[facility] RDW-SD 45.3 <46.0 fl 09/05/2021 14:36 [facility]COL[facility] PLT 150 141 - 377 K/cmm 09/05/2021 14:36 [facility] HEMATOLOG[facility] MPV 9.4(L) 9.5 - 12.7 fl 09/05/2021 14:36 [facility] HEMATOLOG[facility] % Neutrophils 49.1 % 09/05/2021 14:36 [facility] HEMATOLOG[facility] % Lymphocytes 42.1 % 09/05/2021 14:36 [facility]EMAT[facility] % Monocytes 7.0 % 09/05/2021 14:36 EST [facility] % Eosinophils 1.7 % 09/05/2021 14:36 EST [facility] % Basophils 0.1 % 09/05/2021 14:36 EST [facility] % Immature Grans 09/05/19 14:36 EST [facility] Absolute Neutrophils 3.38 2.20 - 8.85 K/cmm 09/05/2021 14:36 EST [facility] Absolute Lymphocytes 2.90 1.09 - 3.30 K/cmm 09/05/2021 14:36 EST [facility] Absolute Monocytes 0.48 0.10 - 0.80 K/cmm 09/05/2021 14:36 EST [facility] Absolute Eosinophils 0.12 0.03 - 0.61 K/cmm 09/05/2021 14:36 EST [facility] ABS Basophils 0.01 0.01 - 0.11 K/cmm 09/05/2021 14:36 EST [facility] Absolute Immature Grans 09/05/2021 14:36 EST [facility] Type of Differential: Auto 09/05/2021 14:36 EST [facility] Blood VENOUS BLOOD / Unknown Venipuncture / Unknown 09/05/2021 14:33 EST 09/05/2021 14:33 EST Lindsay Espino MD PACKAGES & DNA PROBE ORDERABL ES Final Result [facility] Medical Office [address], [address] documented in this encounter Visit Diagnoses Diagnosis Prostate cancer ([facility])- Primary Malignant neoplasm of prostate documented in this encounter Discontinued Medications Medication Sig Discontinue Reason Start Date End Da te bicalutamide (CASODEX) 50 mg tablet Take 50 mg by mouth daily. 09/05/2021 documented as of this encounter Historical Medications * This list may reflect changes made after this encounter. pravastatin (PRAVACHOL) 20 mg tablet Take 20 mg by mouth daily. added in this encounter
--- OUTSIDE RECORDS SUMMARY | 2024-07-09 11:02 | XMS_ITS | Encounter Summary ---
Author Organization [facility] Address [address] [place] [address] Care Team Providers Care Membership Manager Name Role Phone Unavailable Primary Care Provider Unavailabl e Reason for Visit * Reason Comments Stress Management Encounter Details Date Type Department Care Team (Late st Contact Info) Description 06/26/2021 11:00 EST Telemedicine [facility] Adult Hematology & Oncology [address] [place] [address] [phone] Augusta Meade, [address] [place] [address] Adjustment disorder with mixed anxiety [...]
--- OUTSIDE RECORDS SUMMARY | 2024-07-09 11:02 | XMS_ITS | Encounter Summary ---
Author Organization [facility] Address [address] [place] [address] Care Team Providers Care Technician Name Role Phone Unavailable Primary Care Provider Unavailabl e Reason for Visit * Reason Onset Date Comments Appointment Related 05/08/2021 Encounter Details Date Type Department Care Team (Late st Contact Info) Description 05/08/2021 Telephone [facility] Adult Hematology & Oncology [address] [place] [id number] Augusta Meade Appointment Related Social History Tobacco [...]
--- OUTSIDE RECORDS SUMMARY | 2024-07-09 11:02 | XMS_ITS | Encounter Summary ---
Author Organization [facility] [place] [address] [place] [address] Care Team Providers Care Ip Architect Name Role Phone Reji Adams MD Primary Care Provider [phone] Encounter Details Date Type Department Care Team (Latest Contact Info) Description 07/05/2024 Travel Social History Tobacco Use Types Packs/Day Years Used Date Smoking Tobacco: Never Smokeless Tobacco: Current Chew Comments:3 cans/ week. Alcohol Use Standard Drinks/Week Comments Not Currently 0 (1 standard drink = 0.6 oz pur e alcohol) [facility] Utilities Answer Date Recorded In the past 12 months has [employer] electric, gas, oil, or water [employer] threatened to shut off services in your [...] place to sleep or slept in a correction (including now)? Patient declined 12/10/2023 Sex and [...] 11:30 AM EDT Office [place] [address] Charline Ziegler MD [facility] [place] [address] documented as of this encounter Visit Diagnoses Not on filedocumented in this encounter Care Teams Ip Architect Relationship Specialty Start Date End Date Reji Adams MD [facility] [place] [address] PCP - General General Internal Medicine 07/13/15 documented as of this encounter
--- OUTSIDE RECORDS SUMMARY | 2024-07-09 11:02 | XMS_ITS | Encounter Summary ---
Author Organization [facility] Address [address] [place] [address] Care Team Providers Care Fur Dry Cleaner Hand Name Role Phone Unavailable Primary Care Provider Unavailabl e Reason for Referral * (Routine/Next Available) - New Request Specialty Diagnoses / Procedures Referred By Duglas arizmendi Referred To Contact Diagnoses Malignant neoplasm of prostate (HCC-CMS) Procedures CT SIM EXAM Manuel White MD Phone: tel: fax: [facility] Referral ID Status Reason Start Date Expiration Date V isits Requested Visits Authorized [id number] New Request 08/20/2021 1 1 Reason for Visit * (Routine/Next Available) - New Request Specialty Diagnoses / Procedures Referred By Duglas arizmendi Referred To Contact Diagnoses Malignant neoplasm of prostate (HCC-CMS) Procedures CT SIM EXAM Manuel White MD Phone: tel: fax: [facility] Referral ID Status Reason Start Date Expiration Date V isits Requested Visits Authorized [id number] New Request 08/20/2021 1 1 Encounter Details Date Type Department Care Team (Latest Contact Info) Description 08/27/2021 11:00 EST - 08/27/2021 23:59 EST Hospital Encounter [facility] [address] [place] [phone] Malignant neoplasm of prostate (HCC-CMS) Discharge Disposition: Home or Self Care Social [...] 1 mg into the skin once. 08/06/2021 abiraterone 250 mg tablet Take 4 Tablets by mouth daily. 30 Tablet 2 08/27/2021 10/18/2021 bicalutamide (CASODEX) 50 mg tablet Take 50 mg by mouth daily. 09/05/2021 documented as of this encounter Discharge Disposition Disposition Code Departure Means Destination Home or Self Care documented in this encounter Plan of Treatment Not on file documented as of this encounter Procedures Procedure Name Priority Date/Time Associated Diagnosis Comments CT SIM EXAM Routine 08/27/2021 12:15 EST Malignant neoplasm of prostate (HCC-CMS) documented in this encounter Results * CT SIM EXAM (08/27/2021 12:15 EST) Narrative 08/27/2021 12:15 EST This is a non-reportable exam. Manuel White MD IMG OTHER IMAGING ORDERAB LES Final Result documented in this encounter Visit Diagnoses Diagnosis Malignant neoplasm of prostate (HCC-CMS) Malignant neoplasm of prostate documented in this encounter
--- OUTSIDE RECORDS SUMMARY | 2024-07-09 11:02 | XMS_ITS | Encounter Summary ---
Author Organization [facility] Address [address] [place] [address] Care Team Providers Care Relief Charge Nurse Name Role Phone Unavailable Primary Care Provider Unavailabl e Reason for Visit * Reason Onset Date Comments Results 07/12/2021 Encounter Details Date Type Department Care Team (Late st Contact Info) Description 07/12/2021 Telephone [facility] [address] [place] [address] Manuel White MD [address] [facility] [address] [place] [address] Results Social History Tobacco Use [...] Telephone Encounter - Manuel White MD - 07/12/2021 1537 EST Ken, Per our discussion the lumbar MRI at [facility] 07/12/2021 by report shows no evidenceof bony metastatic disease or L1. Similar degenerative changes are seen as noted previously with retrolisthesis of L2 on L3. As we discussed you are scheduled for medical oncology evaluation at [facility] with Dr. Johnson regarding combined enhanced androgen suppression with pelvic radiation basedon the recommendations at [facility]. I will wait to hear from you regarding radiation planning after your appointment at [facility] on 07/26/2021 documented in this encounter Plan of Treatment Not on file documented as of this encounter Visit Diagnoses Diagnosis Prostate cancer (HCC-CMS)- Primary Malignant neoplasm of prostate documented in this encounter
--- OUTSIDE RECORDS SUMMARY | 2024-07-09 11:02 | XMS_ITS | Encounter Summary ---
Author Organization [facility] Address [address] [place] [address] Care Team Providers Care Sheet Folder Name Role Phone Unavailable Primary Care Provider Unavailabl e Reason for Visit * Reason Onset Date Comments Appointment Related 03/29/2016 Encounter Details Date Type Department Care Team (Late st Contact Info) Description 03/29/2016 Telephone [facility] Spine Program - [facility] [address] [facility] [place] [address] Tomas Coker MD [address] [place] [address] Appointment Related Social History Tobacco [...] encounter Miscellaneous Notes * Telephone Encounter - Flor Mcfadden - 03/29/2016 1326 EDT Ken called with the information where he wants to go for his injection Dr. Anmol Mata at [facility] phone number [phone]. Flor Mcfadden 03/29/2016 13:27 documented in this encounter Plan of Treatment Not on file documented as of this encounter Visit Diagnoses Not on filedocumented in this encounter
--- OUTSIDE RECORDS SUMMARY | 2024-07-09 11:02 | XMS_ITS | Encounter Summary ---
Author Organization [facility] Address [address] [place] [address] Care Team Providers Care Commercial Loan Processor Name Role Phone Unavailable Primary Care Provider Unavailabl e Reason for Visit * Reason Onset Date Comments Appointment Related 03/13/2016 Encounter Details Date Type Department Care Team (Late st Contact Info) Description 03/13/2016 Telephone [facility] Hand & Upper Extremity Program - Raheel Begum [place], [place] [phone] Puneet Toure [address] [place] [address] Appointment Related Social History Tobacco Use Types [...] * Telephone Encounter - Meagan Santana - 03/13/2016 1353 EDT Appointment with Amador Vides PA cancelled and appointment made with Dr. Tomas Coker on 03/29/16 at 9am. Patient verbalized understanding with no barriers. documented in this encounter Plan of Treatment Not on file documented as of this encounter Visit Diagnoses Not on filedocumented in this encounter
--- OUTSIDE RECORDS SUMMARY | 2024-07-09 11:02 | XMS_ITS | Encounter Summary ---
Author Organization [facility] Address [address] [place] [address] Care Team Providers Care Gasoline Pump Mechanic Name Role Phone Unavailable Primary Care Provider Unavailabl e Reason for Visit * Reason Comments Arm Problem Right arm pain and n umbness s/p CTR * Consult, Test and Treat (Routine) - Closed Specialty Diagnoses / Procedures Referred By Duglas arizmendi Referred To Contact Orthopedic Surgery Diagnoses Right hand pain Reji Adams MD Phone: tel: fax: Vick Briscoe MD Phone: tel: fax: Referral ID Status Reason Start Date Expiration Date Visits Re quested Visits Authorized [id number] Closed 1 1 Encounter Details Date Type Department Care Team (Late st Contact Info) Description 02/21/2016 10:00 EDT Office Visit [facility] Hand & Upper Extremity Program - [address] [place], [place] [phone] Puneet Toure [address] [place] [phone] Right upper extremity numbness (Primary Dx) Social [...] - Inhaled Oxygen Concentration - - Weight 102.1 kg (225 lb) 02/21/2016 0951 EDT Height 180.3 cm (5' 11) 02/21/2016 0951 EDT Body Mass Index 31.38 02/21/2016 0951 EDT documented in this encounter Functional Status [...] 02/21/2016 9:52 EDT documented in this encounter Progress Notes * Puneet Toure MD - 02/25/2016 0656 EDT Chief Complaint Patient presents with ??? Arm Problem Right arm pain and numbness s/p CTR History of Present Illness: Ken Mckeon is a 70 y.o. right hand-dominant male who presents complaining of right upper extremity numbness. He has had this numbness for many years at this point. He describes the numbness starting at the distal aspect of the arm, radiating down the radial aspect of the elbow forearm and hand,into his fingers. It mostly involves the thumb, index, and middle fingers, but does involve the ring and small fingers as well. He rates the numbness in the thumb, index, and middle fingers as a 9/10, and the numbness in the ring and small finger as a 2/10. He notes that the numbness is worse when he is walking and when he is using the phone or resting his arms at his side such as with typing. Hehas not noticed any difference when his arms are elevated or his hands around his head. He does note numbness in his palms at the base of the thumbs. He also describes tenderness in this location. He has a history of bilateral carpal tunnel releases in the 1970s. He states that these surgeries worked at this time. His symptoms have returned, albeit differently, on the right. He underwent a revision right carpal tunnel release on 03/21/2015, done elsewhere, and notes that he had no improvementwith this surgery. He has been followed by Dr. Casanova, a neurosurgeon. He has undergone C3- 4 and C4-5 ACDF. His most recent electrodiagnostic study was 06/26/2015. This study was most consistent with a chronic C6 radiculopathy. His electrodiagnostic findings of carpal tunnel syndrome actually improved following his most recent carpal tunnel release, though his actual symptoms did not. There is also mention of a CT myelogram in his most recent clinical note from Dr. Casanova. This reportedly showed appropriate fusion from the ACDF. It did show right C7 foraminal narrowing, as well as mildly at C6. The patient filled-out the standard intake sheet which was reviewed and signed by myself. Pertinants are noted herein. History reviewed. No pertinent past medical history. He denies diabetes Social History: Pt is not a smoker. Review of Systems: A 10 point review of systems was negative for any significant findings except as noted in the HPI. Imaging/Diagnostic Data: None new. His EMG/NCS report from 06/26/2015 was reviewed. His right median motor and sensory latencies are within normal limits, with preserved amplitudes. His study is not consistent with continuedcarpal tunnel syndrome. There were motor reorganization changes in the right biceps Physical Exam: Vitals: Ht 180.3 cm (71) Wt 102.059 kg (225 lb) BMI 31.39 kg/m2 General: well nourished, no acute distress Psychiatric: normal affect, appropriate behavior and responses Eyes: extra-ocular muscles intact, pupils equal ENT: hearing intact at normal conversational levels CV: regular rate by palpation of peripheral pulse Pulmonary: no audible wheezes, no coughs, non-labored breathing Skin: no obvious rashes Focused extremity exam: Examination of the right upper extremity demonstrates decreased subjective sensation primarily in aC6 and C7 distribution. This includes decreased sensation in the palmar cutaneous branch of the median nerve and the superficial branch of the radial nerve. His 2-point discrimination was greater than 12 mm in the median nerve distribution, and greater than 7 mm in the ulnar. He had 5/5 strength inright upper extremity motor testing, with the exception of 4/5 strength in his triceps (compared to4+/5 on the left). His elbow flexion strength remained 5/5 on the right. I was unable to identify aprovocative test that could exacerbate his numbness. Pressure over the radial tunnel was minimally painful. This was not worsened with elbow flexion or extension or forearm pronation or supination. He had no increased pain over the pronator. He had a negative Tinel's at the elbow and at the wrist. He had negative Riley, Adson, and Glen tests. Spurling's test was also negative. His carpal tunnel i ncision is well healed. He had mild tenderness over the base of the thenar eminence. He had negative Randy sign, and no inverted radial reflex or biceps hyperreflexia Assessment: This is a 70 y.o. right hand-dominant male with right upper extremity numbness, primarily in a C6 and C7 distribution, likely consistent with C6 and C7 radiculopathy. There is no obvious peripheral nerve compression at this time that I can identify, and no obvious peripheral nerve surgical indications. Plan: Consider a second opinion with a spine surgeon regarding possible C6 and/or C7 foraminal decompression Consider C6/C7 foraminal steroidal injections Follow-up: PRN I have discussed the diagnosis and treatment options with the patient who has indicated understanding and agreement with the plan. Puneet Toure MD 02/21/2016 documented in this encounter Plan of Treatment Not on file documented as of this encounter Visit Diagnoses Diagnosis Right upper extremity numbness- Primary Disturbance of skin sensation documented in this encounter Historical Medications * This list may reflect changes made after this encounter. ALPRAZolam (XANAX) 0.25 mg tablet Take 0.25 mg by mouth as needed for Sleep. ciprofloxacin HCl (CIPRO) 250 mg tablet Take 250 mg by mouth 2 times daily. 08/27/2021 added in this encounter
--- OUTSIDE RECORDS SUMMARY | 2024-07-09 11:02 | XMS_ITS | Encounter Summary ---
Author Organization [facility] Address [address] [place] [address] Care Team Providers Care Customs Inspector Name Role Phone Unavailable Primary Care Provider Unavailabl e Encounter Details Date Type Department Care Team (Late st Contact Info) Description 02/07/2021 Results Only [facility] - [facility] [address] [place] [address] Manuel White MD [address] [facility] [address] [place] [address] Social History Tobacco Use Types [...] ULTRASENSITIVE, DIAGNOSTIC, S UROLOGY/ONCOLOGY USE ONLY Routine 02/07/2021 9:51 EDT documented in this encounter Results * PSA, ULTRASENSITIVE, DIAGNOSTIC, S UROLOGY/ONCOLOGY USE ONLY (02/07/2021 9:51 EDT) [facility] PSA ULTRASENSTIVE - [facility] 0.172 <4.0 ng/mL 02/09/2021 9:32 EDT [facility] Comment: Test methodology is Siemens Chemiluminescence. The lower limit of detection is 0.010 ng/mL. ??Results from different methods or kits cannot be used interchangeably. ?? Serum PSA results cannot be interpreted as absolute evidence of presence or absence of malignancy. PERFORMED at [facility] at [facility]. ??[address] [place] [address]. Laboratory Squirrel Worker: ??Kristofer Liz M.D. 02/07/2021 9:51 EDT 02/07/2021 9:51 EDT Narrative [facility] - 02/09/2021 9:32 EDT Does PT Have a Latex Allergy? NO us Manuel Whtie MD CHEMISTRY & BLOOD GAS ORD ERABLES Final Result [facility] [address] [place] [address] documented in this encounter Visit Diagnoses Not on filedocumented in this encounter
--- OUTSIDE RECORDS SUMMARY | 2024-07-09 11:02 | XMS_ITS | Encounter Summary ---
Author Organization [facility] Address [address] [place] [address] Care Team Providers Care Fire Chief Deputy Name Role Phone Unavailable Primary Care Provider Unavailabl e Reason for Visit * Reason Onset Date Comments Appointment Related 06/11/2021 Encounter Details Date Type Department Care Team (Late st Contact Info) Description 06/11/2021 Telephone [facility] Adult Hematology & Oncology [address] [place] [id number] Augusta Meade, [address] [place] [address] Appointment Related Social History Tobacco [...] encounter Miscellaneous Notes * Telephone Encounter - Ely Jerome - 06/25/2021 0935 EST PT called and would like to to a telephone visit at 11am 06/26 instead of in person. Appt changed on scheduled * Telephone Encounter - Alfreda Garcia - 06/11/2021 1984 EST Patient would like a call back to RS his appt tomorrow documented in this encounter Plan of Treatment Not on file documented as of this encounter Visit Diagnoses Not on filedocumented in this encounter
--- OUTSIDE RECORDS SUMMARY | 2024-07-09 11:02 | XMS_ITS | Encounter Summary ---
Author Organization [facility] Address [address] [place] [address] Care Team Providers Care Brick Catcher Name Role Phone Unavailable Primary Care Provider Unavailabl e Encounter Details Date Type Department Care Team (Late st Contact Info) Description 08/27/2021 Documentation Visit [facility] Radiation Oncology - [facility] [address] [place] [address] Carolina Blackwood, RN Social History Tobacco Use [...] Notes * Carolina Blackwood, RN - 08/27/2021 1244 EST [facility] Patient Education/Needs Assessment Date: 08/27/21 What is the patient most concerned about with treatment? Denies concerns at this time. Does the patient feel adequately informed about he treatment process? Yes Are there any barriers to getting the patient to treatment (transportation, work etc)? No Was the patient accompanied for this encounter? No LEARNING STYLE What time of day does the patient learn best? What is the patient preferred method of learning? Patient's primary language: [place] Does the patient require an dairy machine operator farmworker? No Does the patient have any barriers to learning? No []Hard of Hearing []Visual Impairment []Cognitive Impairment []Dementia []Low Literacy []Other Comments: PATIENT EDUCATION After assessing the patient's learning needs, the patient was educated about their upcoming treatments. The patient was: Understanding. The following education materials were supplied to the patient: Written: [x] ELAINE Radiation Therapy for Cancer [] ELAINE Radiation Therapy for [x][facility]-specific information Audio/Visual [] ELAINE RT Answers: An introduction to external beam radiation therapy ADVANCE DIRECTIVES STATUS The patient's advance directive status was reviewed: [x] Patient was reminded again to bring in a copy for their electronic Radiation Oncology chart. [] The patient does not have any advance directives and is not interested in completing one at thistime. When asked, the patient was able to summarize our conversation, which demonstrates that they understand the education provided and are ready to begin their course of treatment. [x] The patient was counseled and provided with educational handouts of the following information: pertinent contact information for Radiation Oncology staff, general care and skin care during radiation therapy, nutritional and exercise guidelines during radiation therapy and information related to supportive services during radiation therapy. Comments: Signed: CAROLINA BLACKWOOD RN documented in this encounter Plan of Treatment Not on file documented as of this encounter Visit Diagnoses Not on filedocumented in this encounter
--- OUTSIDE RECORDS SUMMARY | 2024-07-09 11:02 | XMS_ITS | Encounter Summary ---
Author Organization [facility] Address [address] [place] [address] Care Team Providers Care Wood Technologist Name Role Phone Unavailable Primary Care Provider Unavailabl e Encounter Details Date Type Department Care Team (Late st Contact Info) Description 07/03/2021 Orders Only [facility] [place] [address] [place] [address] Manuel White MD [address] [facility] [address] [place] [address] Prostate cancer (HCC-CMS) (HCC) (HCC-CMS) (Primary Dx); Malignant neoplasm of prostate (HCC-CMS) Social History Tobacco Use Types Packs/Day Years [...] cancer (HCC-CMS)- Primary Malignant neoplasm of prostate Malignant neoplasm of prostate (HCC-CMS) Malignant neoplasm of prostate documented in this encounter
--- OUTSIDE RECORDS SUMMARY | 2024-07-09 11:02 | XMS_ITS | Encounter Summary ---
Author Organization [facility] Address [address] [place] [address] Care Team Providers Care Specimen Collector Name Role Phone Unavailable Primary Care Provider Unavailabl e Encounter Details Date Type Department Care Team (Latest Contact Info) Description 09/07/2021 15:39 EST - 09/07/2021 23:59 EST Hospital Encounter [facility] Treatment [place] [address] [place] [address] Discharge Disposition: Home or Self Care Social [...]
--- OUTSIDE RECORDS SUMMARY | 2024-07-09 11:02 | XMS_ITS | Encounter Summary ---
Author Organization [facility] Address [address] [place] [address] Care Team Providers Care Cat Skinner Name Role Phone Unavailable Primary Care Provider Unavailabl e Reason for Visit * Reason Onset Date Comments Referral Request 03/06/2016 Encounter Details Date Type Department Care Team (Late st Contact Info) Description 03/06/2016 Telephone [facility] Hand & Upper Extremity Program - [address] [place], [place] [phone] Puneet Toure [address] [place] [address] Referral Request Social History Tobacco Use Types Packs/Day Years [...] * Telephone Encounter - Meagan Santana - 03/06/2016 1315 EDT Left message for Ken stating his imaging from [facility] had been reviewed by Dr. Toure and he would like him to have a second opinion in the Spine clinic. Referral put in and he should be receiving a call in the next week with an appointment date and time. Left direct number should he have any questions. Meagan Santana documented in this encounter Plan of Treatment Not on file documented as of this encounter Visit Diagnoses Not on filedocumented in this encounter
--- OUTSIDE RECORDS SUMMARY | 2024-07-09 11:02 | XMS_ITS | Encounter Summary ---
Author Organization [facility] Address [address] [place] [address] Care Team Providers Care Back Tender Pulp Drier Name Role Phone Unavailable Primary Care Provider Unavailabl e Encounter Details Date Type Department Care Team (Late st Contact Info) Description 07/03/2021 Orders Only [facility] Cancer Treatment [place] [address] [place] [address] Manuel White MD [address] [facility] [address] [place] [address] Prostate cancer (HCC-CMS) (HCC) (HCC-CMS) [...]
--- OUTSIDE RECORDS SUMMARY | 2024-07-09 11:03 | XMS_ITS | Encounter Summary ---
Author Organization [facility] [place] [address] Care Team Providers Care Permit Coordinator Name Role Phone Reji Adams MD Primary Care Provider [phone] Encounter Details Date Type Department Care Team (Late st Contact Info) Description 02/12/2024 Transcribe [place] [phone] Javid Almanza II, MD [address] [place] [address] Malignant neoplasm prostate; Erectile dysfunction, unspecified erectile dysfunction type Social History Tobacco Use Types Packs/Day Years Used Date Smoking Tobacco: Never Smokeless Tobacco: Current Chew Comments:3 cans/ week. Alcohol Use Standard Drinks/Week Comments Not Currently 0 (1 standard drink = 0.6 oz pur e alcohol) [facility] Utilities Answer Date Recorded In the past 12 months has [employer], gas, oil, or water [employer] threatened to shut off services in your [...] place to sleep or slept in a fdc (including now)? Patient declined 12/10/2023 Sex and [...] 11:30 AM EDT Office [place] [address] Charline Ziegler MD [facility] [place] [address] Scheduled Orders Name Type Priority Associated Diagnoses Orde r Schedule Lab Use Only, Fax Request Lab Routine Malignant neoplasm prostate Erectile dysfunction, unspecified erectile dysfunction type Expected: 02/12/2024 (Approximate), Expires: 02/11/2025 documented as of this encounter Results * PSA (Ultrasensitive) (07/05/2024 12:03 PM EST) Prostate Specific Antigen (Ultrasensitive) <0.01 0.00-4.00 ng/mL ng/ml 07/05/2024 5:58 PM EST [facility] Comment:The reference interv al (0 - [...] Javid Almanza II, MD CHEMISTRY ORDER [facility] [place] [address] documented in this encounter Visit Diagnoses Diagnosis Malignant neoplasm prostate Malignant neoplasm of prostate Erectile dysfunction, unspecified erectile dysfunction type documented in this encounter Care Teams Permit Coordinator Relationship Specialty Start Date End Date Reji Adams MD [facility] [place] [address] PCP - General General Internal Medicine 07/13/15 documented as of this encounter
--- OUTSIDE RECORDS SUMMARY | 2024-07-09 11:03 | XMS_ITS | Encounter Summary ---
Author Organization [facility] [place] [address] Care Team Providers Care Spiral Gear Generator Name Role Phone Reji Adams MD Primary Care Provider Encounter Details Date Type Department Care Team (Latest Contact Info) Description 01/02/2024 Travel Social History Tobacco Use Types Packs/Day Years Used Date Smoking Tobacco: Never Smokeless Tobacco: Current Chew Comments:3 cans/ week. Alcohol Use Standard Drinks/Week Comments Not Currently 0 (1 standard drink = 0.6 oz pur e alcohol) [facility] Utilities Answer Date Recorded In the past 12 months has [employer] electric, gas, oil, or water [employer] threatened to shut off services in your [...] place to sleep or slept in a long term (including now)? Patient declined 12/10/2023 Sex and [...] 11:30 AM EDT Office [place] [address] Charline Ziegler MD [facility] [place] [address] documented as of this encounter Visit Diagnoses Not on filedocumented in this encounter Care Teams Spiral Gear Generator Relationship Specialty Start Date End Date Reji Adams MD [facility] [place] [address] PCP - General General Internal Medicine 07/13/15 documented as of this encounter
--- OUTSIDE RECORDS SUMMARY | 2024-07-09 11:03 | XMS_ITS | Encounter Summary ---
Author Organization [facility] Address [facility] [place] [address] Care Team Providers Care Professor Of Theater Name Role Phone Reji Adams MD Primary Care Provider [phone] Reason for Visit * Reason Comments [facility], PVCs and bundle branch block discussion, Encounter Details Date Type Department Care Team (Late st Contact Info) Description 02/27/2024 11:00 AM EDT Office [place] [id number] Orlando Delgado MD PVCs (premature ventricular contractions) Social History Tobacco Use Types Packs/Day Years Used Date Smoking Tobacco: Never Smokeless Tobacco: Current Chew Tobacco Cessation:Ready to Q uit: Not Asked; Counseling Given: Not Answered Comments:3 cans/ week. Alcohol Use Standard Drinks/Week Comments Not Currently 0 (1 standard drink = 0.6 oz pur e alcohol) [facility] Utilities Answer Date Recorded In the past 12 months has [email or web address], gas, oil, or water [employer] threatened to shut off services in your [...] place to sleep or slept in a jail (including now)? Patient declined 12/10/2023 Sex and Gender Information Value Date Recorded Sex Assigned at Choose not to disclose 02/2023 8:26 AM EDT Gender Identity Not on file Sexual Orientation Choose not to disclose 2022 8:26 AM EDT documented as of this encounter Last Filed Vital Signs Vital Sign Reading Time Taken Comments Blood Pressure 108/70 02/27/2024 11:34 AM EDT Pulse 65 02/27/2024 11:34 AM EDT 58-65, pvcs Temperature 36.8 ??C (98.2 ??F) 02/27/2024 1 1:34 AM EDT Respiratory Rate 16 02/27/2024 11:3 4 AM EDT Oxygen Saturation 98% 02/27/2024 11: 34 AM EDT Inhaled Oxygen Concentration - - Weight 94.5 kg (208 lb 6.4 oz) 02/27/20 11:34 AM EDT w shoes Height - - Body Mass Index 29.08 02/20/2024 1:22 PM EDT documented in this encounter Progress Notes * Orlando Delgado MD - 02/27/2024 11:00 AM EDT Images from the original note were not included. Hospital Follow up Visit [facility] [address] [place] [address] History Ken is here today for a post hospital discharge follow up. he was admitted to [facility] for evaluation and treatment of his PVCs. Pre-admission: 78-year-old male who has a history of palpitations went to the ED on Friday 5 days ago complaining of more palpitations than usual. Patient was not lightheaded not lose consciousness had no chest pain or shortness of breath Hospital Course: Patient was evaluated with a chest x-ray EKG CBC and CMP Post Discharge: Patient reports continued palpitations however less so than previously Patient concerns: Patient wants to contemplate elbow surgery and is concerned as to whether be cleared medically to undergo such procedure. I indicated to the patient that it would appear that such aclearance already exists in his chart from his behavioral assistant Dr. Mchugh placed in October 2023. Brought to the patient's attention his diagnosis bifascicular PVCs was already known from a June 27, 2023evaluation prior to Dr. Mchugh's assessment. I discussed with the patient the possibility of a therapeutic trial with a beta-manuel which she states he was already to pursue due to read about I encouraged him to discuss this with his primary care physician. No data to display Medications 02/27/24 9194 Medication Sig Taking? ALPRAZolam (Xanax) 0.25 mg tablet Take 1 tablet by mouth 3 times daily as needed for Anxiety. Yes pravastatin (Pravachol) 20 mg tablet Take 1 tablet by mouth daily. Yes BORON ORAL Take 2 mg by mouth daily. Yes tadalafiL (Cialis) 5 mg tablet Take 5 mg by mouth as needed for Erectile Dysfunction. Yes polyethylene glycoL (Miralax) 17 gram/dose Powder Take 17 g by mouth daily. Yes acetaminophen (TYLENOL) 650 mg Tablet Sustained Release Take 650 mg by mouth every 8 hours as needed for Pain. Do not exceed 6 tabs in 24 hours Yes multivitamin (THERAGRAN) tablet Take 1 tablet by mouth daily. Yes magnesium citrate 100 mg Tablet Take 200 mg by mouth daily. Physical Exam BP 108/70 (BP Location (NBP): Left arm, Patient Position: Sitting, BP Cuff Sizes: Adult (25-34 cm)) Pulse 65 Comment: 58-65, pvcs Temp 36.8 ??C (98.2 ??F) (Oral) Resp 16 Wt 94.5 kg (208 lb 6.4 oz) Comment: w shoes SpO2 98% BMI 29.08 kg/m?? Physical Exam Constitutional: Appearance: Normal appearance. HENT: Head: Normocephalic. Eyes: General: No scleral icterus. Right eye: No discharge. Left eye: No discharge. Cardiovascular: Rate and Rhythm: Normal rate. Rhythm irregular. Heart sounds: No murmur heard. Pulmonary: Effort: Pulmonary effort is normal. Breath sounds: No wheezing or rhonchi. Abdominal: Tenderness: There is no abdominal tenderness. There is no right CVA tenderness, left CVA tenderness, guarding or rebound. Musculoskeletal: Right lower leg: No edema. Left lower leg: No edema. Skin: General: Skin is dry. Findings: No bruising, erythema or rash. Neurological: Mental Status: He is alert and oriented to person, place, and time. Psychiatric: Mood and Affect: Mood normal. Thought Content: Thought content normal. Documentation Reviewed: [x] Emergency Room Note [x] History and Physical [] Discharge Summary [x] Applicable Imaging Studies XR Chest One View Narrative: EXAMINATION: XR Chest 1 View CLINICAL HISTORY: SOB TECHNIQUE: Single lateral view COMPARISON: Chest x-ray, 1946 hours, February 22, 2024 FINDINGS: Clear lungs without focal consolidation. Specifically, no evidence of middle lobe pneumonia. Impression: Clear lungs, no pneumonia. Thank you for letting us participate in the care of this patient. If you are a health care provider and have any questions regarding this report, please contact the number below. For patients who have questions please contact the health rn managed care that requested your imaging first. Chest One View Narrative: EXAMINATION: XR Chest 1 View CLINICAL HISTORY: SOB TECHNIQUE: Frontal radiograph of the chest COMPARISON: CT chest January 19, 2023 FINDINGS: New ill-defined right middle lobe opacity. The left lung is clear. No pneumothorax or pleural effusions detected. Impression: Appearance concerning for middle lobe pneumonia. Consider confirmation with lateral radiograph. Thank you for letting us participate in the care of this patient. If you are a health care provider and have any questions regarding this report, please contact the number below. For patients who have questions please contact the health rn managed care that requested your imaging first. [] Applicable Labs Lab Results Component Value Date NA 141 01/28/2024 K 4.6 01/28/2024 CL 105 01/28/2024 CO2 27 01/28/2024 BUN 13 01/28/2024 CREATININE 0.98 01/28/2024 GLUCOSE 97 01/28/2024 GLUCFASTING 98 08/22/2017 CALCIUM 9.8 01/28/2024 ESTGFR 79 01/28/2024 Lab Results Component Value Date ALT 12 01/28/2024 AST 17 01/28/2024 ALKPHOS 51 01/28/2024 BILITOT 0.9 01/28/2024 BILIDIR 0.2 11/30/2020 ALBUMIN 4.4 01/28/2024 PROT 6.5 01/28/2024 Lab Results Component Value Date WBC 4.8 01/28/2024 HGB 14.5 01/28/2024 HCT 42.2 01/28/2024 MCV 90.9 01/28/2024 PLATELET 164 01/28/2024 [] Transitional Care Nurse Note Problem List Items Addressed This Visit None This patient has medical needs (which may include housing, PT/OT, counseling, medication help, etc)that require low medical decision making as discussed above. I am aware of the medications given at the time of discharge from facility. These were reconciled with the patient's ambulatory med list, post discharge. Today, I will be keeping the medicatons the same as per discharge medications. Orlando Delgado MD This office note has been dictated using voice recognition software. documented in this encounter Plan of Treatment Upcoming Encounters Date Type Department Care Team (Late st Contact Info) Description 12/15/2024 11:30 AM EDT Office [place] [address] Charline Ziegler MD [facility] [address] documented as of this encounter Visit Diagnoses Diagnosis PVCs (premature ventricular contractions) Other premature beats documented in this encounter Care Teams Professor Of Theater Relationship Specialty Start Date End Date Reji Adams MD [facility] [place] [address] PCP - General General Internal Medicine 07/13/15 documented as of this encounter
--- OUTSIDE RECORDS SUMMARY | 2024-07-09 11:03 | XMS_ITS | Encounter Summary ---
Author Organization [facility] Address [facility] [place] [address] Care Team Providers Care Wardrobe Attendant Name Role Phone Reji Adams MD Primary Care Provider [phone] Reason for Visit * Reason Comments Shortness of Breath Sx onset 7-10 days a go, No sneezing, itchy eyes, running nose, if goes outside it gets worse, better in the AC, causing anxiety to increase, feels like can't get a full deep breath, using flonase, astepro, saline nasal spray. Breathing outside in the heat is worse Encounter Details Date Type Department Care Team (Late st Contact Info) Description 02/20/2024 1:20 PM EDT Office Visit Internal Medicine at [address] [address] Tyler Palma MD [facility] [place], [place] [id number] Acute rhinitis Social History Tobacco Use Types Packs/Day Years Used Date Smoking Tobacco: Every Day Cigarettes Smokeless Tobacco: Current Chew Comments:3 cans/ week. Alcohol Use Standard Drinks/Week Comments Not Currently 0 (1 standard drink = 0.6 oz pur e alcohol) [facility] Utilities Answer Date Recorded In the past 12 months has [employer], gas, oil, or water company threatened to shut off services in your [...] place to sleep or slept in a senior living (including now)? Patient declined 12/10/2023 Sex and Gender Information Value Date Recorded Sex Assigned at Choose not to disclose 02/2023 8:26 AM EDT Gender Identity Not on file Sexual Orientation Choose not to disclose 2022 8:26 AM EDT documented as of this encounter Last Filed Vital Signs Vital Sign Reading Time Taken Comments Blood Pressure 108/71 02/20/2024 1:22 PM EDT Pulse 66 02/20/2024 1:22 PM EDT Temperature 36.2 ??C (97.2 ??F) 02/20/2024 1:22 PM ED T Respiratory Rate 16 02/20/2024 1:22 PM EDT Oxygen Saturation 100% 02/20/2024 1:22 PM EDT Inhaled Oxygen Concentration - - Weight 89.4 kg (197 lb) 02/20/2024 1:22 PM EDT Height 180.3 cm (5' 10.98) 02/20/2024 1:22 PM E DT Body Mass Index 27.49 02/20/2024 1:22 PM EDT documented in this encounter Progress Notes * Tyler Palma MD - 02/20/2024 1:20 PM EDT Subjective: Patient ID: Ken Mckeon is a 78 y.o. adult. Chief Complaint Patient presents with Shortness of Breath Sx onset 7-10 days ago, No sneezing, itchy eyes, running nose, if goes outside it gets worse, better in the AC, causing anxiety to increase, feels like can't get a full deep breath, using flonase, astepro, saline nasal spray. Breathing outside in the heat is worse PMH - Anxiety, HLD, prostate cancer on Eligard, hyperparathyroidism, osteoporosis with vertebral fractures, paroxysmal SVT Nose feels constricted but not full/congested. No itchy eyes, rhinorrhea, sneezing. No coughing, sore throat. No fever or headache. Going on for about a week. Today walked a mile and feeling pretty good. Used astepro once and flonase sensimist for about 5-6 days, and saline spray. Predominantly occurs outside, particularly in warmer weather. When he has trouble breathing, he feels anxious and then feels like he is struggling. Hasn't felt like this before. Legs always are a little swollen. No orthopnea or PND. Objective: BP 108/71 (BP Location (NBP): Right arm, Patient Position: Sitting, BP Cuff Sizes: Adult (25-34 cm)) Pulse 66 Temp 36.2 ??C (97.2 ??F) (Temporal) Resp 16 Ht 180.3 cm (5' 10.98) Wt 89.4 kg (197 lb) SpO2 100% BMI 27.49 kg/m?? Wt Readings from Last 3 Encounters: 02/20/24 89.4 kg (197 lb) 02/16/24 89.4 kg (197 lb) 12/11/23 92.5 kg (204 lb) Physical Exam Constitutional: Appearance: He is normal weight. HENT: Right Ear: Tympanic membrane, ear canal and external ear normal. Left Ear: Tympanic membrane, ear canal and external ear normal. Nose: Nose normal. Comments: Could not visualize nasal mucosa due to nasal hair Mouth/Throat: Mouth: Mucous membranes are dry. Pharynx: Oropharynx is clear. No oropharyngeal exudate or posterior oropharyngeal erythema. Lymphadenopathy: Cervical: No cervical adenopathy. Neurological: Mental Status: He is alert. Assessment and Plan: Ken Escobedo was seen today for shortness of breath. Diagnoses and all orders for this visit: Acute rhinitis Offers no associated symptoms other than the sensation of nasal fullness/inability to take a deep breath. Improves indoors when out of the heat/humidity (and maybe allergic trigger?). Overall improving with his nasal steroid use which I think is going to be effective for him as hasn't been yet beenon for a week. No indication for antibiotics. His lungs are clear w/o wheezing (he was concerned this was allergic asthma). Counseled that he could add nasal decongestant like Afrin but he thinks he is just going to give this more time as he felt reassured by our visit. * Loreta Chavira CCMA - 02/20/2024 1:20 PM EDT Walking SpO2 from the waiting room to exam room 7 - 98% documented in this encounter Plan of Treatment Upcoming Encounters Date Type Department Care Team (Late st Contact Info) Description 12/15/2024 11:30 AM EDT Office [place] [address] Charline Ziegler MD [facility] [place] [address] documented as of this encounter Visit Diagnoses Diagnosis Acute rhinitis Acute nasopharyngitis (common cold) documented in this encounter Care Teams Wardrobe Attendant Relationship Specialty Start Date End Date Reji Adams MD [facility] [place] [address] PCP - General General Internal Medicine 07/13/15 documented as of this encounter
--- OUTSIDE RECORDS SUMMARY | 2024-07-09 11:03 | XMS_ITS | Encounter Summary ---
Author Organization [facility] Address [facility] [place] [address] Care Team Providers Care Pill Packer Name Role Phone Reji Adams MD Primary Care Provider [phone] Reason for Visit * Reason Comments Other Pain behind left ear . Hearing loss in Left ear Fluctuates Encounter Details Date Type Department Care Team (Late st Contact Info) Description 05/21/2024 10:40 AM EDT Office Visit [place] [address] Mary Ny MD [facility] [place] [address] Left ear pain; Cervical stenosis of spinal canal Social History Tobacco Use Types Packs/Day Years Used Date Smoking Tobacco: Never Smokeless Tobacco: Current Chew Comments:3 cans/ week. Alcohol Use Standard Drinks/Week Comments Not Currently 0 (1 standard drink = 0.6 oz pur e alcohol) [facility] Utilities Answer Date Recorded In the past 12 months has [employer], gas, oil, or water company threatened [...] place to sleep or slept in a retirement (including now)? Patient declined 12/10/2023 Sex and Gender Information Value Date Recorded Sex Assigned at Choose not to disclose 02/2023 8:26 AM EDT Gender Identity Not on file Sexual Orientation Choose not to disclose 2022 8:26 AM EDT documented as of this encounter Progress Notes * Mary Ny MD - 05/21/2024 10:40 AM EDT [facility] Otolaryngology - Head and Neck Surgery Mary Ny MD 05/21/24 10:52 AM [place], [place] [address] Office Patient Name: Ken Mckeon Date of : 1945 PCP: Reji Adams MD Chief Complaint/ History of Present Illness: Ken Mckeon is a 78 y.o. year old who was seen today at the request of No ref. provider found inconsultation for left ear pain. History was obtained from the patient as well as information from chart review. Patient has been seen by myself in the past several years ago. He still notes a nearly daily ache over and behind the left ear. It tends to come and go but is present to some extent on a nearly daily basis. No associated hearing changes, no drainage. He does have some neck muscle pain as well that comes and goes. He had an cervical spine MRI recently that we will review below. 10 point Review of Systems was normal except for pertinent positives and negatives included in the History of Present Illness. 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 70 tablet 0 magnesium citrate 100 mg Tablet Take 200 mg by mouth daily. pravastatin (Pravachol) 20 mg tablet Take 1 tablet by mouth daily. 90 tablet 3 BORON ORAL Take 2 mg by mouth daily. tadalafiL (Cialis) 5 mg tablet Take 5 mg by mouth as needed for Erectile Dysfunction. polyethylene glycoL (Miralax) 17 gram/dose Powder Take 17 g by mouth daily. acetaminophen (TYLENOL) 650 mg Tablet Sustained Release Take 650 mg by mouth every 8 hours as needed for Pain. Do not exceed 6 tabs in 24 hours multivitamin (THERAGRAN) tablet Take 1 tablet by mouth daily. No current facility-administered medications on file prior to visit. Allergies: Penicillins, Betamethasone, Dexamethasone, and Triamcinolone acetonide Surgical History: Past Surgical History: Procedure Laterality Date CREATED BY INTERFACE Past surg hx. Procedure Date: 09/19/2010 CT GUIDED SACROPLASTY/VERTEBROPLASTY 05/22/2022 CT Guided Sacroplasty/Vertebroplasty 05/22/2022 Tomas Falcon MD [facility] RAD CT SCAN PRO COLONOSCOPY, DIAGNOSTIC 09/07/2013 COLONOSCOPY, DIAGNOSTIC performed by Ximena Gu MD at [facility] ENDOSCOPY PRO COLONOSCOPY, DIAGNOSTIC N/A 07/26/2022 COLONOSCOPY, DIAGNOSTIC performed by May Riojas MD at [facility] ENDOSCOPY PRO COLONOSCOPY, REMV LESN, SNARE N/A 01/25/2020 COLONOSCOPY, POLYPECTOMY, REMOVAL LESION BY SNARE (WRVU 4.67) performed by Michelle Camarillo MDat [facility] ENDOSCOPY PRO ENDOSCOPIC US EXAM, ESOPH N/A 03/14/2020 UPPER EUS- ENDOSCOPIC ULTRASOUND performed by Festus Carballo MD at [facility] ENDOSCOPY PRO LIGATE/STRIP LONG SAPH VEIN BELW SEP-FEM JUNC 06/02/2012 LIGATION\DIV\STRIP GREATER SAPHENOUS VEIN performed by BEATRICE RODRÍGUEZ at [facility] MAIN OR PRO PHLEB VEINS - EXTREM - TO 20 06/02/2012 STAB PHLEBECTOMY KARLI VEINS, EXTREMITY 10-20 INCISIONS-SANTI performed by BEATRICE RODRÍGUEZ at [facility] MAIN OR PRO UPPER GI ENDOSCOPY, BIOPSY N/A 09/02/2017 EGD WITH BIOPSY (WRVU 2.49) performed by Rahul Escobar MD at [facility] ENDOSCOPY PRO UPPER GI ENDOSCOPY, BIOPSY N/A 01/25/2020 EGD WITH BIOPSY (WRVU 2.49) performed by Michelle Camarillo MD at [facility] ENDOSCOPY PRO UPPER GI ENDOSCOPY, BIOPSY N/A 03/14/2020 EGD WITH BIOPSY (WRVU 2.49) performed by Festus Carballo MD at [facility] ENDOSCOPY US GUIDED BIOPSY PROSTATE ([place] ONLY) 02/08/2019 US Guided Transrectal Biopsy 02/08/2019 [facility] RAD ULTRASOUND Family and Social History Family History: Family History Problem Relation Age of Onset Cancer Mother bone Diabetes Father Cancer Father testicular Social History: Lives in [facility] [address] Social History Socioeconomic History Marital status: Unknown Spouse name: Not on file Number of children: 3 Years of education: Not on file Highest education level: Not on file Occupational History Occupation: retired Tobacco Use Smoking status: Never Smokeless tobacco: Current Types: Chew Tobacco comments: 3 cans/ week. Vaping Use Vaping status: Never Used Substance and Sexual Activity Alcohol use: Not Currently Drug use: No Sexual activity: Yes Partners: Female Other Topics Concern Do You live alone? Not Asked Tobacco in Home Not Asked Social History Narrative Not on file Social Determinants of Health Financial Resource Strain: Patient Declined (12/10/2023) Overall Financial Resource Strain (CARDIA) Difficulty of Paying Living Expenses: Patient declined Food Insecurity: Patient Declined (12/10/2023) Hunger Vital Sign Worried About Running Out of Food in the Last Year: Patient declined Ran Out of Food in the Last Year: Patient declined Transportation Needs: Patient Declined (12/10/2023) PRAPARE - Transportation Lack of Transportation (Medical): Patient declined Lack of Transportation (Non-Medical): Patient declined Physical Activity: Inactive (12/10/2023) Exercise Vital Sign Days of Exercise per Week: 0 days Minutes of Exercise per Session: 0 min Intimate Partner Violence: Not on file Housing Stability: Patient Declined (12/10/2023) Housing Stability Vital Sign Unable to Pay for Housing in the Last Year: Patient declined Number of Places Lived in the Last Year: 1 Unstable Housing in the Last Year: Patient declined Physical Exam Temperature: Heart Rate: Blood Pressure: Respiratory Rate: SpO2: General: Awake, alert, and oriented to person, place and time. No acute distress. Head and Face: Head is normocephalic, atraumatic. Facial resting tone symmetric. Eyes: Conjugate gaze, ocular motility intact bilaterally. PERRL. Neurologic: Cranial Nerves II-XII grossly intact and symmetric. Ears: External ear and ear canal are without deformity. Tympanic membranes intact bilaterally without retraction pockets or middle ear fluid. Nose: External nose is midline without deformity or lesion. Anterior rhinoscopy reveals a straight septum, healthy mucosa, turbinates normal in size. Oral: There are no visible or palpable buccal, gingival, lingual, or palatal lesions. The floor of mouth is soft and flat. Oropharynx: Symmetric without tonsillar pathology. No other concerning lesions or masses Larynx: No stridor, no hoarseness. External laryngeal structures normal to palpation. Face and sinuses are non tender. Salivary glands are soft, non tender, without palpable masses. No temporomandibular joint grinding or locking. Some tenderness noted over the left masseter muscle. Neck: Symmetric. No scars, palpable masses, or crepitus. Midline trachea. Thyroid normal in size, non tender, no palpable mass. Some muscle tension noted over the trapezius and SCM left > right Lymphatic: no palpable cervical lymphadenopathy. Pulmonary: Breathing comfortably. Symmetric chest expansion without use of accessory muscles or retraction. Skin: Good skin turgor, no pallor, no icterus. Extremities: No gross deformities, no peripheral edema. Labs and Imaging Significant lab values are as follows: I reviewed the following imaging studies: EXAMINATION: MRI CERVICAL SPINE WO CONTRAST (GENERIC) [...] narrowing as a result of uncovertebral adenopathy. IMPRESSION Post C3-5 ACDF with nonprogressive cervical spondylosis as detailed above. I have personally reviewed the image(s) and the resident's interpretation and agree with the findings, Rigo Kiran DO at 05/09/2024 1:01 PM Thank you for letting us participate in the care of this patient. If you are a health care provider and have any questions regarding this report, please contact the number below. For patients who have questions please contact the health managed care nurse that requested your imaging first. Electronically signed by: Rigo Kiran DO, [facility] ([phone]), at 05/09/2024 1:01 PM Component 3 wk ag Procedures Flexible laryngoscopy was performed. The nose was sprayed with topical lidocaine and decongestant. Nasopharynx was normal without lesions or masses. Base of tongue wnl, pharyngeal lucio wnl. Epiglottis and false cords were wnl. Piriform sinuses clear. True vocal cords were fully mobile without concerning lesions or masses noted. ASSESSMENT & RECOMMENDATIONS Ken Mckeon is a 78 y.o. with left periaural discomfort. Comprehensive head and neck exam today including flexible laryngoscopy showed no signs of infection or abnormalities in the pharynx. Recommendations: We suspect his discomfort is most like due to muscle tension, he found the findings reassuring. F/[facility] otolaryngology prn. Mary Ny MD Otolaryngology - Head and Neck Surgery 05/21/24 10:52 AM documented in this encounter Plan of Treatment Upcoming Encounters Date Type Department Care Team (Late st Contact Info) Description 12/15/2024 11:30 AM EDT Office Visit [place] [address] Charline Ziegler MD [facility] [place] [address] documented as of this encounter Visit Diagnoses Diagnosis Left ear pain Otalgia, unspecified Cervical stenosis of spinal canal Spinal stenosis in cervical region documented in this encounter Care Teams Pill Packer Relationship Specialty Start Date End Date Reji Adams MD [facility] [place] [address] PCP - General General Internal Medicine 07/13/15 documented as of this encounter
--- OUTSIDE RECORDS SUMMARY | 2024-07-09 11:03 | XMS_ITS | Encounter Summary ---
Author Organization [facility] Address [facility] [place] [address] Care Team Providers Care [employer] Floorperson Name Role Phone Reji Adams MD Primary Care Provider [phone] Reason for Visit * Reason Onset Date Comments Medication Refill 04/28/2024 Encounter Details Date Type Department Care Team (Late st Contact Info) Description 04/28/2024 Refill Internal Medicine at [address] [address] Reji Adams MD [facility] GENER[facility] [place] [address] Anxiety Social History Tobacco Use Types Packs/Day Years Used Date Smoking Tobacco: Never Smokeless Tobacco: Current Chew Comments:3 cans/ week. Alcohol Use Standard Drinks/Week Comments Not Currently 0 (1 standard drink = 0.6 oz pur e alcohol) [facility] Utilities Answer Date Recorded In the past 12 months has [employer], gas, oil, or water [employer] threatened to shut off services in your [...] place to sleep or slept in a skilled nursing (including now)? Patient declined 12/10/2023 Sex and Gender Information Value Date Recorded Sex Assigned at Choose not to disclose 02/2023 8:26 AM EDT Gender Identity Not on file Sexual Orientation Choose not to disclose 2022 8:26 AM EDT documented as of this encounter Miscellaneous Notes * Telephone Encounter - Lola Blevins, [facility] - 04/30/2024 9:58 AM EDT Requested Prescriptions Pending Prescriptions Disp Refills ALPRAZolam (Xanax) 0.25 mg tablet 70 tablet 0 Sig: Take 1 tablet by mouth 3 times daily as needed for Anxiety. Date: 04/30/2024 [facility]: [facility] Agreement signed (at least once): Not On File 04/02/2024 5:02 PM 03/09/2024 8:54 AM 02/09/2024 5:14 PM 01/13/2024 7:03 AM 12/16/2023 5:31 AM 11/18/2023 9:55 AM 10/23/2023 10:32 AM Opioid PDMP [place] PDMP Query Date 04/05/2024 03/09/2024 02/10/2024 01/13/2024 12/16/2023 11/19/2023 10/24/2023 [place] PDMP Query Date 04/05/2024 03/09/2024 12/16/2023 11/19/2023 10/24/2023 [place] PDMP Query Date 04/05/2024 03/09/2024 12/16/2023 11/19/2023 10/24/2023 PDMP (once per year) Any scripts from non- provider: no Last Filled (date, medication, quantity): Per pdmp pt filled on 04/05/24 #70 for a 23 day supply. Last Med Check OV: 12/11/23 AWV Patient needs to be seen on or before (q1y): 12/10/24 Sent to media reconciliation specialist to schedule appointment: no documented in this encounter Plan of Treatment Upcoming Encounters Date Type Department Care Team (Late st Contact Info) Description 12/15/2024 11:30 AM EDT Office [place] [address] Charline Ziegler MD [facility] [place] [address] documented as of this encounter Visit Diagnoses Diagnosis Anxiety Anxiety state, unspecified documented in this encounter Care Teams [employer] Floorperson Relationship Specialty Start Date End Date Reji Adams MD [facility] GENER[facility] [place] [address] PCP - General General Internal Medicine 07/13/15 documented as of this encounter
--- OUTSIDE RECORDS SUMMARY | 2024-07-09 11:03 | XMS_ITS | Encounter Summary ---
Author Organization [facility] [place] [address] Care Team Providers Care Customer Manager Name Role Phone Reji Adams MD Primary Care Provider [phone] Encounter Details Date Type Department Care Team (Latest Contact Info) Description 01/28/2024 11:10 AM EDT Laboratory Appointment Lab at [facility] [address] [place] [address] Prostate cancer metastatic to intrapelvic lymph node; Malignant neoplasm of prostate Social History Tobacco Use Types Packs/Day Years Used Date Smoking Tobacco: Never Smokeless Tobacco: Current Chew Comments:3 cans/ week. Alcohol Use Standard Drinks/Week Comments Not Currently 0 (1 standard drink = 0.6 oz pur e alcohol) [facility] Utilities Answer Date Recorded In the past 12 months has [facility] [employer], gas, oil, or water [employer] threatened to shut off services in your [...] 11:30 AM EDT Office [place] [address] Charline Ziegler MD [facility] [place] [address] documented as of this encounter Procedures Procedure Name Priority Date/Time Associated Diagnosis Comments PSA SCREEN Routine 01/28/2024 11:14 AM EDT Malignant neoplasm of prostate HEMOGRAM Routine 01/28/2024 11:14 AM EDT Prostate cancer metastatic to intrapelvic lymph node DIFFERENTIAL, AUTOMATED Routine 01/28/2024 11:14 AM EDT Prostate cancer metastatic to intrapelvic lymph node CBC (WITH DIFF) Routine 01/28/2024 11:14 AM EDT Prostate cancer metastatic to intrapelvic lymph node TESTOSTERONE, TOTAL Routine 01/28/2024 1 1:14 AM EDT Prostate cancer metastatic to intrapelvic lymph node PSA (ULTRASENSITIVE) Routine 01/28/2024 11:14 AM EDT Prostate cancer metastatic to intrapelvic lymph node COMPREHENSIVE METABOLIC PANEL Routine 01/28/2024 11:14 AM EDT Prostate cancer metastatic to intrapelvic lymph node documented in this encounter Results * Differential, Automated (01/28/2024 11:14 AM EDT) Neutrophil % 62.6 % [facility] Neutrophil Absolute 3.03 1.70 - 6.10 x10(3)/[facility] Lymph % 26.7 % [facility] Lymphocytes Abs 1.3 0.9 - 3.2 x10(3)/[facility] Monocyte % 8.7 % [facility] Monocyte Abs 0.4 0.3 - 0.9 x10(3)/[facility] Eos % 1.2 % [facility] Eosinophils Abs 0.1 0.0 - 0.4 x10(3)/[facility] Basophil % 0.6 % [facility] Baso Absolute 0.0 0.0 - 0.1 x10(3)/[facility] Immature Gran % 0.20 % [facility] Comment: Immature granulocytes(IG's)percentage and absolute count will include metamyelocytes, myelocytes, and promyelocytes. Blood smears from CBCs yielding IG's will be scanned manually for concordance. If this scan disagrees with the automated IG or if promyelocytes are noted, a manual differential will be performed. Immature Gran Absolute 0.01 0.00 - 0.04 x10(3)/[facility] Blood 01/28/2024 11:1 4 AM EDT 01/28/2024 1:10 PM EDT Narrative Resulting Agency Comment Spec In Lab Mike Louise MD HEMATOLOGY ORDERABLE S [facility] [place] [address] * (ABNORMAL) Hemogram (01/28/2024 11:14 AM EDT) White Blood Cell 4.8 4.0 - 9.5 x10(3)/mc L [facility] Red Blood Cell 4.64 4.58 - 5.54 x10(6)/mc L [facility] Hemoglobin 14.5 13.7 - 16.5 g/dL [facility] Hematocrit 42.2 40.5 - 48.5 % [facility] Mean Cell Volume 90.9 82.9 - 93.1 [facility] Mean Cell Hemoglobin 31.3 27.5 - 32.1 pg [facility] Mean Cell Hemoglobin Concentration 34.4 32.0 - 35.7 g/dL [facility] Platelet 164 145 - 357 x10(3)/mc L [facility] RDW Standard Deviation 46.5(H) 36.0 - 45.0 [facility] RDW coefficient of variation 13.8 11.4 - 13.8 % [facility] Mean Platelet Volume 9.5 7.6 - 12.9 [facility] NRBC% auto 0.0 % [facility] NRBC Absolute 0.000 0.000 - 0.000 x10(3)/mc L [facility] Blood 01/28/2024 11:1 4 AM EDT 01/28/2024 1:10 PM EDT Narrative Resulting Agency Comment Spec In Lab Mike Louise MD HEMATOLOGY ORDERABLE S [facility] [place] [address] * PSA Screen (01/28/2024 11:14 AM EDT) [facility] PSA Screen <0.01 0.00 - 4.00 ng/mL [facility] Comment: PLEASE NOTE: The above reference interval is intended for healthy males with an intact prostate. Values within this reference interval may indicate recurrence in men who have undergone radical prostatectomy. This result was generated using a Tung Johanna immunoassay. ??Results obtained from other methods or manufacturers cannot be used interchangeably with this method. Blood 01/28/2024 11:1 4 AM EDT 01/28/2024 1:14 PM EDT Narrative Resulting Agency Comment Spec In Lab Javid Almanza II, MD CHEMISTRY ORDER DALILA Performing Organization Address [facility] Co de Phone Number [facility] [place] [address] * Comprehensive metabolic panel (non-fasting) (01/28/2024 11:14 AM EDT) [facility] Glucose 97 65 - 199 mg/dL [facility] Comment:Diabetes: >=200 mg/d L plus symptoms Blood Urea Nitrogen 13 10 - 20 mg/dL [facility] Creatinine 0.98 0.80 - 1.50 mg/dL [facility] Sodium 141 135 - 145 mmol/L [facility] Potassium 4.6 3.5 - 5.0 mmol/L [facility] Comment: Please note: ??Patients with WBC >100,000 may have falsely elevated Potassium levels. ??For accurate Potassium quantification in these patients send serum separator tube (gold top) for subsequent determinations. ??Contact the Clinical Chemistry Laboratory if there are any questions. Chloride 105 98 - 107 mmol/L [facility] Carbon Dioxide 27 22 - 31 mmol/L [facility] Anion Gap 9 5 - 15 mmol/L [facility] Calcium 9.8 8.5 - 10.5 mg/dL [facility] Protein, Total 6.5 6.1 - 8.0 g/dL [facility] Albumin 4.4 3.2 - 5.2 g/dL [facility] Aspartate Aminotransferase 17 0 - 39 unit/L [facility] Alanine Aminotransferase 12 0 - 55 unit/L [facility] Alkaline Phosphatase 51 40 - 130 unit/L [facility] Bilirubin, Total 0.9 0.2 - 1.3 mg/dL [facility] Est Glomerular Filtration Rate 79 >=60 mL/min/1. 73 m?? [facility] Comment: This patient's estimated GFR was calculated using the 2020 CKD-EPI equation. The estimated GFR can vary from the measured GFR by up to 30% in the absence of rapidly changing kidney function. Assessment of the estimated GFR is not appropriate when creatinine concentrations are rapidly changing. For clinical situations in which a more precise estimate of GFR is necessary, consider alternative methods of GFR estimation such as a 24-hour urine creatinine clearance. Assignment of CKD stage 1-5 for patients with an eGFR near the transition point between stages may be based on clinical assessment of muscle mass and symptoms in addition to eGFR. Blood 01/28/2024 11:1 4 AM EDT 01/28/2024 1:14 PM EDT Narrative Resulting Agency Comment Spec In Lab Mike Louise MD CHEMISTRY ORDERABLES Performing Organization Address City/State/[facility] Co de Phone Number [facility] [place] [address] * Testosterone, total (01/28/2024 11:14 AM EDT) Testosterone 4.63 1.93 - 7.40 ng/mL [facility] Comment: Pediatric Reference Ranges: ? Males (7 - 18 years) ?Females (8 - 18 years) Gianfranco Stage ?ng/ml ? ng/ml ? 1 ? <0.03 ? <0.03 to 0.06 ? 2 ? <0.03 to 4.32 ? <0.03 to 0.10 ? 3 ?0.65 to 7.78 ? <0.03 to 0.24 ? 4 ?1.80 to 7.63 ? <0.03 to 0.27 ? 5 ?1.88 to 8.82 ?0.05 to 0.38 Stated reference ranges derived from review of Tung Johanna Testosterone II 05/2022, v2.0 Blood 01/28/2024 11:1 4 AM EDT 01/28/2024 1:15 PM EDT Narrative Resulting Agency Comment Spec In Lab Mike Louise MD CHEMISTRY ORDERABLES [facility] [place] [address] * PSA (Ultrasensitive) (01/28/2024 11:14 AM EDT) Prostate Specific Antigen (Ultrasensitive) <0.01 0.00 - 4.00 ng/mL [facility] Comment: PLEASE NOTE: The above reference interval is intended for healthy males with an intact prostate. Values within this reference interval may indicate recurrence in men who have undergone radical prostatectomy. This result was generated using a Tung Johanna immunoassay. ??Results obtained from other methods or manufacturers cannot be used interchangeably with this method. Blood 01/28/2024 11:1 4 AM EDT 01/28/2024 1:14 PM EDT Narrative Resulting Agency Comment Spec In Lab Mike Louise MD CHEMISTRY ORDERABLES [facility] [place] [address] documented in this encounter Visit Diagnoses Diagnosis Prostate cancer metastatic to intrapelvic lymph node Malignant neoplasm of prostate documented in this encounter Care Teams Customer Manager Relationship Specialty Start Date End Date Reji Adams MD [facility] GENER[facility] [place] [address] PCP - General General Internal Medicine 07/13/15 documented as of this encounter
--- OUTSIDE RECORDS SUMMARY | 2024-07-09 11:03 | XMS_ITS | Encounter Summary ---
Author Organization [facility] [place] [address] Care Team Providers Care Performance Manager Name Role Phone Reji Adams MD Primary Care Provider [phone] Reason for Referral * Diagnostic Test (Routine) - Closed Specialty Diagnoses / Procedures Referred By Contac t Referred To Contact Radiology Diagnoses Cervical spinal stenosis Procedures MRI Cervical Spine wo Contrast (Generic) Danny Barron II, MD [address] [place] [address] [facility] [address] [place] [address] Referral ID Status Reason Start Date Expiration Date V isits Requested Visits Authorized [id number] Closed Specialty Service Requested 05/03/2024 11/01/2025 1 1 Reason for Visit * Diagnostic Test (Routine) - Closed Specialty Diagnoses / Procedures Referred By Contac t Referred To Contact Radiology Diagnoses Cervical spinal stenosis Procedures MRI Cervical Spine wo Contrast (Generic) Danny Barron II, MD [address] [place] [phone] [facility] [address] [place] [address] Referral ID Status Reason Start Date Expiration Date V isits Requested Visits Authorized [id number] Closed Specialty Service Requested 05/03/2024 11/01/2025 1 1 Encounter Details Date Type Department Care Team (Latest Contact Info) Description 05/05/2024 5:43 PM EDT - 05/05/2024 11:59 PM EDT Hospital Encounter Radiology [facility] [place] [address] Danny Barron II, MD [address] [place] [address] Cervical spinal stenosis Discharge Disposition: Home Social History Tobacco Use Types Packs/Day Years Used Date Smoking Tobacco: Never Smokeless Tobacco: Current Chew Comments:3 cans/ week. Alcohol Use Standard Drinks/Week Comments Not Currently 0 (1 standard drink = 0.6 oz pur e alcohol) [facility] Utilities Answer Date Recorded In the past 12 months has e [employer], gas, oil, or water [employer] threatened to shut off services in your [...] place to sleep or slept in a residential (including now)? Patient declined 12/10/2023 Sex and Gender Information Value Date Recorded Sex Assigned at Choose not to disclose 02/2023 8:26 AM EDT Gender Identity Not on file Sexual Orientation Choose not to disclose 2022 8:26 AM EDT documented as of this encounter Medications at Time of Discharge Medication Sig Dispensed Refills Start Date End Date magnesium citrate 100 mg Tablet Take 200 mg by mouth daily. pravastatin (Pravachol) 20 mg tablet Take 1 tablet by mouth daily. 90 tablet 3 10/24/2023 [place] [employer]AL Take 2 mg by mouth [...] tablet Take 1 tablet by mouth daily. ALPRAZolam (Xanax) 0.25 mg tabletIndications:Anxie ty Take 1 tablet by mouth 3 times daily as needed for Anxiety. 70 tablet 04/30/2024 05/28/2024 documented as of this encounter Plan of Treatment Upcoming Encounters Date Type Department Care Team (Late st Contact Info) Description 12/15/2024 11:30 AM EDT Office Visit [place] [phone] Charline Ziegler MD [facility] [place] [address] documented as of this encounter Procedures Procedure Name Priority Date/Time Associated Diagnosis Comments MRI CERVICAL SPINE WO CONTRAST Routine 05/05/2024 6:27 PM EDT Cervical spinal stenosis documented in this encounter Results * MRI Cervical Spine wo Contrast (Generic) (05/05/2024 6:27 PM EDT) WORKSTATION ID [id number] RAD Anatomical Region Laterality Modality C-spine Magnetic [...] who have questions please contact the health health care assistant that requested your imaging first. ? Electronically signed by: Rigo Kiran DO [facility] ??([phone]), at 05/09/2024 1:01 PM Narrative 05/09/2024 1:01 [...] result of uncovertebral adenopathy. Procedure Note Rigo Kiran, DO - 05/09/2024 EXAMINATION: MRI CERVICAL SPINE [...] fracture or suspicious marrow replacing process. Focal [id number] in the right lateral cord at the [...] patients who have questions please contactthe health health care assistant that requested your imaging first. Electronically signed by: Rigo Kiran DO, [facility]([phone]), at 05/09/2024 1:01 PM Danny Barron II, MD IMG MRI ORDERA BLES documented in this encounter Visit Diagnoses Diagnosis Cervical spinal stenosis Spinal stenosis in cervical region documented in this encounter Care Teams Performance Manager Relationship Specialty Start Date End Date Reji Adams MD [facility] [place] [address] PCP - General General Internal Medicine 07/13/15 documented as of this encounter
--- OUTSIDE RECORDS SUMMARY | 2024-07-09 11:03 | XMS_ITS | Encounter Summary ---
Author Organization [facility] [place] [address] Care Team Providers Care Bee Rancher Name Role Phone Reji Adams MD Primary Care Provider [phone] Encounter Details Date Type Department Care Team (Latest Contact Info) Description 02/27/2024 Travel Social History Tobacco Use Types Packs/Day Years Used Date Smoking Tobacco: Never Smokeless Tobacco: Current Chew Comments:3 cans/ week. Alcohol Use Standard Drinks/Week Comments Not Currently 0 (1 standard drink = 0.6 oz pur e alcohol) [facility] Utilities Answer Date Recorded In the past 12 months has [employer], gas, oil, or water [employer] threatened to shut off services in your [...] place to sleep or slept in a fci (including now)? Patient declined 12/10/2023 Sex and [...] 11:30 AM EDT Office Visit [place] [address] Charline Ziegler MD [facility] [place] [address] documented as of this encounter Visit Diagnoses Not on filedocumented in this encounter Care Teams Bee Rancher Relationship Specialty Start Date End Date Reji Adams MD [facility] [place] [address] PCP - General General Internal Medicine 07/13/15 documented as of this encounter
--- OUTSIDE RECORDS SUMMARY | 2024-07-09 11:03 | XMS_ITS | Encounter Summary ---
Author Organization [facility] [place] [address] Care Team Providers Care Mosaic Tiler Name Role Phone Reji Adams MD Primary Care Provider [phone] Encounter Details Date Type Department Care Team (Latest Contact Info) Description 05/20/2024 Travel Social History Tobacco Use Types Packs/Day Years Used Date Smoking Tobacco: Never Smokeless Tobacco: Current Chew Comments:3 cans/ week. Alcohol Use Standard Drinks/Week Comments Not Currently 0 (1 standard drink = 0.6 oz pur e alcohol) [facility] Utilities Answer Date Recorded In the past 12 months has [employer] electric, gas, oil, or water [employer] threatened to shut off services in your [...] place to sleep or slept in a group home (including now)? Patient declined 12/10/2023 Sex and [...] 11:30 AM EDT Office [place] [address] Charline Ziegler MD [facility] [place] [place] [address] documented as of this encounter Visit Diagnoses Not on filedocumented in this encounter Care Teams Mosaic Tiler Relationship Specialty Start Date End Date Reji Adams MD [facility] [place] [address] PCP - General General Internal Medicine 07/13/15 documented as of this encounter
--- OUTSIDE RECORDS SUMMARY | 2024-07-09 11:03 | XMS_ITS | Encounter Summary ---
Author Organization [facility] [place] [address] Care Team Providers Care Spinner Hand Name Role Phone Reji Adams MD Primary Care Provider [phone] Encounter Details Date Type Department Care Team (Latest Contact Info) Description 01/28/2024 Travel Social History Tobacco Use Types Packs/Day Years Used Date Smoking Tobacco: Never Smokeless Tobacco: Current Chew Comments:3 cans/ week. Alcohol Use Standard Drinks/Week Comments Not Currently 0 (1 standard drink = 0.6 oz pur e alcohol) [facility] Utilities Answer Date Recorded In the past 12 months has [employer], gas, oil, or water [employer] threatened to shut off services in your [...] place to sleep or slept in a halfway (including now)? Patient declined 12/10/2023 Sex and [...] 11:30 AM EDT Office [place] [address] Charline Ziegler MD [facility] [place] [address] documented as of this encounter Visit Diagnoses Not on filedocumented in this encounter Care Teams Spinner Hand Relationship Specialty Start Date End Date Reji Adams MD [facility] [place] [address] PCP - General General Internal Medicine 07/13/15 documented as of this encounter
--- OUTSIDE RECORDS SUMMARY | 2024-07-09 11:03 | XMS_ITS | Encounter Summary ---
[place] [address] Care Team Providers Care Assortment Planner Name Role Phone Reji Adams MD Primary Care Provider [phone] Reason for Referral * Consultation (Routine) - Closed Specialty Diagnoses / Procedures Referred By Contac t Referred To Contact Orthopaedics Diagnoses Trochanteric bursitis, unspecified laterality Low back pain, non-specific It band syndrome, unspecified laterality Tyler Tobar MD [address] [place] [address] [facility] [address] [place] [phone] Referral ID Status Reason Start Date Expiration Date V isits Requested Visits Authorized [id number] Closed Consult, Test & Treat PCP Updated and/or Approved 12/03/2023 06/04/2024 6 6 Encounter Details Date Type Department Care Team (Latest Contact Info) Description 12/12/2023 Transcribe Orders eDH Incoming Referrals [phone] Tyler Tobar MD [address] [place], [place] [address] Trochanteric bursitis, unspecified laterality; Low back pain, non-specific; It band syndrome, unspecified laterality Social History Tobacco Use Types Packs/Day Years Used Date Smoking Tobacco: Never Smokeless Tobacco: Current Chew Comments:3 cans/ week. Alcohol Use Standard Drinks/Week Comments Not Currently 0 (1 standard drink = 0.6 oz pur e alcohol) [facility] Utilities Answer Date Recorded In the past 12 months has th e electric, gas, oil, or water company threatened [...] 11:30 AM EDT Office Visit [place] [address] Charline Ziegler MD [facility] [place] [address] Scheduled Referrals Name Type Priority Associated Diagnoses Orde r Schedule Referral to Orthopaedics Outpatient Referral Routine Trochanteric bursitis, unspecified laterality Low back pain, non-specific It band syndrome, unspecified laterality Ordered: 12/12/2023 documented as of this encounter Visit Diagnoses Diagnosis Trochanteric bursitis, unspecified laterality Low back pain, non-specific It band syndrome, unspecified laterality documented in this encounter Care Teams Assortment Planner Relationship Specialty Start Date End Date Reji Adams MD [facility] GENERAL [place] [address] PCP - General General Internal Medicine 07/13/15 documented as of this encounter
--- OUTSIDE RECORDS SUMMARY | 2024-07-09 11:03 | XMS_ITS | Encounter Summary ---
Author Organization [facility] [address] Care Team Providers Care Outboard System Operator Name Role Phone Reji Adams MD Primary Care Provider [phone] Encounter Details Date Type Department Care Team (Late st Contact Info) Description 02/22/2024 Interpretation Only [address] [address] Woodrow Dunn, DO [address] [place] [address] Social History Tobacco Use Types Packs/Day Years Used Date Smoking Tobacco: Every Day Cigarettes Smokeless Tobacco: Current Chew Comments:3 cans/ week. Alcohol Use Standard Drinks/Week Comments Not Currently 0 (1 standard drink = 0.6 oz pur e alcohol) [facility] Utilities Answer Date Recorded In the past 12 months has [employer], oil, or water [employer] threatened to shut off services in your [...] 11:30 AM EDT Office [place] [address] hCarline Ziegler MD [facility] [address] documented as of this encounter Procedures Procedure Name Priority Date/Time Associated Diagnosis Comments XR CHEST ONE VIEW STAT 02/22/2024 9:0 0 PM EDT documented in this encounter Results * XR Chest One View (02/22/2024 9:00 PM EDT) PT CLASS E RAD ADMITDTTM [id number] RAD PT RAD INFO [id number]^Shaun ^Troy^L RAD EXAM DESC XCXR1^XR Chest 1 View^RIS [facility] WORKSTATION ID [id number] [facility] Anatomical Region Laterality Modality Chest N/A Radiographic Chelsea ging 02/22/2024 9:00 PM EDT Impressions 02/22/2024 9:07 PM EDT Clear lungs, no pneumonia. Thank you for letting us participate in the care of this patient. ??If you are a health care provider and have any questions regarding this report, please contact the number below. ??For patients who have questions please contact the health senior caregiver that requested your imaging first. ? Electronically signed by: Kavya Zurita MD, [facility] ([phone]), at 02/22/2024 9:07 PM Narrative 02/22/2024 9:07 PM EDT EXAMINATION: XR Chest 1 View CLINICAL HISTORY: SOB TECHNIQUE: Single lateral view COMPARISON: Chest x-ray, 1946 hours, February 22, 2024 FINDINGS: Clear lungs without focal consolidation. Specifically, no evidence of middle lobe pneumonia. Procedure Note Kavya Zurita MD - 02/22/2024 EXAMINATION: XR Chest 1 View CLINICAL HISTORY: SOB TECHNIQUE: Single lateral view COMPARISON: Chest x-ray, 1946 hours, February 22, 2024 FINDINGS: Clear lungs without focal consolidation. Specifically, no evidence ofmiddle lobe pneumonia. IMPRESSION Clear lungs, no pneumonia. Thank you for letting us participate in the care of this patient. If youare a health care provider and have any questions regarding this report,please contact the number below. For patients who have questions please contactthe health senior caregiver that requested your imaging first. Woodrow Dunn DO IMG DX ORDERABLES documented in this encounter Visit Diagnoses Not on filedocumented in this encounter Care Teams Outboard System Operator Relationship Specialty Start Date End Date Reji Adams MD [facility] [place] [address] PCP - General General Internal Medicine 07/13/15 documented as of this encounter
--- OUTSIDE RECORDS SUMMARY | 2024-07-09 11:03 | XMS_ITS | Encounter Summary ---
Author Organization [facility] Address [facility] [place] [address] Care Team Providers Care Stock Or Delivery Clerk Name Role Phone Reji Adams MD Primary Care Provider [phone] Reason for Visit * Reason Comments Establish Care LEFT KNEE PAIN TRANS OZIEL CARE FOR TOTAL KNEE SURGERY * Surgical (Routine) - Closed Specialty Diagnoses / Procedures Referred By Duglas arizmendi Referred To Contact Orthopaedics Diagnoses Primary osteoarthritis of knee, unspecified laterality Reji Adams MD [facility] [place] [address] Varun Hernandez MD [facility] [place] [address] Referral ID Status Reason Start Date Expiration Date V isits Requested Visits Authorized [id number] Closed Specialty Service Requested 01/30/2024 01/29/2025 1 1 Encounter Details Date Type Department Care Team (Latest Contact Info) Description 02/16/2024 1:00 PM EDT Office [place] [address] Varun Hernandez MD [facility] [place] [address] Primary osteoarthritis of left knee Social History Tobacco Use Types Packs/Day Years Used Date Smoking Tobacco: Every Day Cigarettes Smokeless Tobacco: Current Chew Tobacco Cessation:Ready to Q uit: Not Asked; Counseling Given: Not Answered Comments:3 cans/ week. Alcohol Use Standard Drinks/Week Comments Not Currently 0 (1 standard drink = 0.6 oz pur e alcohol) [facility] Utilities Answer Date Recorded In the [...] - - Weight 89.4 kg (197 lb) 02/16/2024 12:40 PM EDT Height 180.3 cm (5' 11) 02/16/2024 12:40 PM EDT Body Mass Index 27.48 02/16/2024 12:40 PM EDT documented in this encounter Progress Notes * Melodie Arnold MD - 02/16/2024 1:00 PM EDT Arthroplasty History/Previous Knee Surgery: 2006, R TKA in [place] 2018, bilateral simultaneous ROYAL ([place]) Chief Complaint: Chief Complaint Patient presents with Establish Care LEFT KNEE PAIN TRANSFER CARE FOR TOTAL KNEE SURGERY This patient was referred from Reji Adams MD [facility] [place] [address] I.D.: Ken Mckeon is a 78 y.o. year old adult being seen today to discuss his left knee. His history and physical exam were reviewed in detail. He has history of R TKA done in [place] in 2006 which has done well for him and history bilateral ROYAL (Dr. Daniel at [facility] 2019). He continues to do well with regards to other replaced joints. He now is here to discuss L knee pain and symptoms which have been discussed previously with Dr. Daniel. He was consindering pursuit of a L TKA with Dr. Daniel but began researching robotic surgery and had questions regarding benefit of the robotic TKA procedure. He states he has recently changed his footwear from heavy hiking shoes to more comforable sneaker wear and been able to resume walking 1 mile / day which he is elated about. He does bring a cane with him as a tool in case he has any fallsor instability but does not use or bear weight through it. Not presently taking any medications or NSAIDs for pain. He has some exercises at home for the OA pain and has done in the past. Has had 2-3 steroid injections in the L knee which have been helpful in the past and then most recently in July of this year he had an RANDALL synvisc injection in the knee. They helped some, but they did not relieve all of his symptoms and were fleeting in effect. ASSOCIATED DIAGNOSES: He does not reports problems with the ipsilateral hip, does not report problems with the contralateral knee and does not have a history of spine or back issues. ALLERGIES Allergies Allergen Reactions Penicillins Anaphylaxis Tongue swelling Betamethasone hiccups after injection Dexamethasone Hiccups after injection Triamcinolone Acetonide Hiccups Allergies to metals: none known. SOCIAL HISTORY: reports that he has been smoking cigarettes. His smokeless tobacco use includes chew. He reports that he does not currently use alcohol. He reports that he does not use drugs. Occupation: retired SIGNIFICANT MEDICAL COMORBIDITIES: Patient Active Problem List Diagnosis Code Status [...] pathological fracture M80.00XA Palpitations R00.2 Hyperparathyroidism E21.3 VITALS: BP Readings from Last 1 Encounters: 12/11/23 113/70 Pulse Readings from Last 1 Encounters: 12/11/23 71 Height: 180.3 cm (5' 11) Weight: 89.4 kg (197 lb) Body mass index is 27.48 kg/m??. PHYSICAL EXAM: Constitution: Patient sits in the clinic today in no apparent distress. The patient is alert and oriented x 3. Appearance is age-appropriate, affect is similarly appropriate. Head, ears, eyes, nose, throat: grossly normal. Anicteric, no apparant lymphadenopathy. Chest: Normal chest expansion with re gular inspiratory effort. No audible wheezing with regularly inspiratory effort. Cardiac: regular rate and rhythm by peripheral palpation. Abdominal: Soft non- tender abdomen with no masses noted. C, T, L & S Spines demonstrate supple pain-free ROM with no focal abnormality. Gross extremity examination demonstrates full active and passive ROM without stigmata of rheumatoid disease. I have made the following determinations: Knee Exam: Left Prior surgery on this joint: No Gait Abnormality: Antalgic Knee ROM: Extension:0 Flexion: 115 Alignment: 0-4 degrees Neutral Stability: A/P Translation <5mm Varus (lateral stability) <5mm Valgus (medial stability) <5mm Extension La degrees or less Patella Tracking: Normal Skin Integrity: Normal Motor/Sensory: Distal Motor:Normal Distal Sensory: Normal Quadriceps Strength:5 RADIOGRAPHIC ANALYSIS: Together, we reviewed his MRI Left knee which shows some mild OA and patellofemoral joint disease but otherwise not significantly bad arthritic changes. Although we have NO X-rays of left knee available for review. Questionnaire Responses: 02/15/2024 General Health, Prior Treatments, PreExisting Condition, Health Habits, About You KOOS JR Scores 65.99 02/15/2024 Orthopeadics [facility] Response KOOS JR Scores 65.99 02/15/2024 Spine [facility] Response KOOS JR Scores 65.99 ASSESSMENT AND PLAN: Mr. Mckeon is a 78 y.o. year old adult with pain in his left knee and MRI evidence of mild OA but no plain XR available for review. Given patient has been able to resume walking 1 mile / day and activity level he is very excited about and not requiring any medication assistance for pain; at this time, recommend continued conservative management for OA. If his symptoms wax/wane again to the point whe re they are more symptomatic affecting his ability to walk a mile / day or do the activities he would like he can follow back at any time in our clinic with XR standing alignment, Joseph, lat and sunrise views for better characterization of his level of OA and consideration of TKA. Melodie Arnold MD * Varun Hernandez MD - 02/16/2024 1:00 PM EDT Images from the original note were not included. Department of Orthopaedics Division of Adult Joint Reconstructive Surgery February 16, 2024 I had the pleasure of evaluating Ken Mckeon in clinic in conjunction with Dr. Arnold. I have seen the patient and reviewed the history/physical and I agree with the details as written. The assessment and plan were formulated in discussion with me and I agree with them as documented. Mr. Mckeon is a 78 y.o. year old adult with left knee pain secondary to osteoarthritis. Hx of b/l ROYAL([place]) and R TKA at [facility]. Was seen to discuss L TKA with Dr. Daniel but presents for a secondopinion to discuss TKA. Very interested in the robot. Hx of injection x 3. Tylenol as needed. My independent personal review of the imaging studies demonstrate Radiographic evidence of MRI withmild to mod OA. Patient would not get xrays today. We reviewed the multiple treatment options available to him for this condition. Both operative and nonoperative options were discussed as well as the pure elective nature of each. I reviewed the concept of the arthritis ladder with its step-you approach, rising in invasiveness based on either previous response or symptom severity/impact on lifestyle. We discussed at some length about the fact that there is no cure for primary osteoarthritis. Therefore, management is supportive and nonoperative initially, with the accepted nonoperative treatment options for OA including: (1) activity modification (avoiding activities that hurt where possible, such as kneeling, or stairclimbing, (2) attainment of ideal body weight, (3) reduction of inflammationeither through oral anti-inflammatory agents, topicals, or intra- articular injections,. We also talked about the role of physical therapy to strengthen muscle groups that control lower extremity muscle groups. At this point in time he would like to proceed with continued conservative management and I think this is reasonable. Has PT exercises at home Continue to walk OTC meds PRN Will need xrays at some point All questions were answered. Varun Hernandez MD, MS Maintenance Foreman, Division of Adult Reconstructive Cable TenderWire Brush Operator of Orthopaedics Department of Orthopaedics [facility] [phone] documented in this encounter Plan of Treatment Upcoming Encounters Date Type Department Care Team (Late st Contact Info) Description 12/15/2024 11:30 AM EDT Office [place] [address] Charline Ziegler MD [facility] [place] [address] Scheduled Orders Name Type Priority Associated Diagnoses Orde r Schedule XR Knee Standing Alignment AP Lat [place] Left Imaging Routine Primary osteoarthritis of left knee Expected: 02/16/2024, Expires: 05/18/2024 documented as of this encounter Visit Diagnoses Diagnosis Primary osteoarthritis of left knee Primary localized osteoarthrosis, lower leg documented in this encounter Care Teams Stock Or Delivery Clerk Relationship Specialty Start Date End Date Reji Adams MD [facility] [place] [address] PCP - General General Internal Medicine 07/13/15 documented as of this encounter
--- OUTSIDE RECORDS SUMMARY | 2024-07-09 11:03 | XMS_ITS | Encounter Summary ---
Author Organization [facility] Address [facility] [place] [address] Care Team Providers Care Hotel Or Motel Cleaning Supervisor Name Role Phone Reji Adams MD Primary Care Provider [phone] Reason for Visit * Reason Onset Date Comments Medication Refill 05/28/2024 Encounter Details Date Type Department Care Team (Late st Contact Info) Description 05/28/2024 Refill Internal Medicine at [address] [address] Reji Adams MD [facility] [place] [address] Anxiety Social History Tobacco Use Types Packs/Day Years Used Date Smoking Tobacco: Never Smokeless Tobacco: Current Chew Comments:3 cans/ week. Alcohol Use Standard Drinks/Week Comments Not Currently 0 (1 standard drink = 0.6 oz pur e alcohol) [facility] Utilities Answer Date Recorded In the past 12 months has [employer], gas, oil, or water [employer] threatened to shut off services in your [...] place to sleep or slept in a mcfp (including now)? Patient declined 12/10/2023 Sex and Gender Information Value Date Recorded Sex Assigned at Choose not to disclose 02/2023 8:26 AM EDT Gender Identity Not on file Sexual Orientation Choose not to disclose 2022 8:26 AM EDT documented as of this encounter Miscellaneous Notes * Telephone Encounter - Janelle Macedo RN - 05/29/2024 7:55 PM EDT Controlled Prescription Renewal Request Date: 05/29/2024 Requested Prescriptions Pending Prescriptions Disp Refills ALPRAZolam (Xanax) 0.25 mg tablet 70 tablet 0 Sig: Take 1 tablet by mouth 3 times daily as needed for Anxiety. Pharmacy: [facility] # [id number] Benzodiazepine Agreement signed (at least once): no benzodiazepine agreement on file; needs new agreement 05/28/2024 3:57 PM 04/28/2024 8:54 AM 04/02/2024 5:02 PM 03/09/2024 8:54 AM 02/09/2024 5:14 PM 01/13/2024 7:03 AM 12/16/2023 5:31 AM Opioid PDMP [place] PDMP Query Date 05/29/2024 04/30/2024 04/05/2024 03/09/2024 02/10/2024 01/13/2024 12/16/2023 [place] PDMP Query Date 05/29/2024 04/30/2024 04/05/2024 03/09/2024 12/16/2023 [place] PDMP Query Date 05/29/2024 04/30/2024 04/05/2024 03/09/2024 12/16/2023 PDMP (once per year) Any scripts from non- provider: no Last Filled (date, medication, quantity): 05/01/2024 #70 (24 day); Due:05/25/2024 Last Med Check OV: 12/11/2023 Patient needs to be seen on or before (q1y): 12/10/2024 Sent to clinical secretary to schedule appointment: no Status of Request: Pended documented in this encounter Plan of Treatment Upcoming Encounters Date Type Department Care Team (Late st Contact Info) Description 12/15/2024 11:30 AM EDT Office [place] [address] Charline Ziegler MD [facility] [place] [address] documented as of this encounter Visit Diagnoses Diagnosis Anxiety Anxiety state, unspecified documented in this encounter Care Teams Hotel Or Motel Cleaning Supervisor Relationship Specialty Start Date End Date Reji Adams MD [facility] [place] [address] PCP - General General Internal Medicine 07/13/15 documented as of this encounter
--- OUTSIDE RECORDS SUMMARY | 2024-07-09 11:03 | XMS_ITS | Encounter Summary ---
Author Organization [facility] [place] [address] Care Team Providers Care Search Engine Marketing Specialist Name Role Phone Reji Adams MD Primary Care Provider [phone] Encounter Details Date Type Department Care Team (Latest Contact Info) Description 01/13/2024 Travel Social History Tobacco Use Types Packs/Day Years Used Date Smoking Tobacco: Never Smokeless Tobacco: Current Chew Comments:3 cans/ week. Alcohol Use Standard Drinks/Week Comments Not Currently 0 (1 standard drink = 0.6 oz pur e alcohol) [facility] Utilities Answer Date Recorded In the past 12 months has [email or web address], gas, oil, or water [employer] threatened to shut off services in your [...] place to sleep or slept in a alf (including now)? Patient declined 12/10/2023 Sex and [...] 11:30 AM EDT Office [place] [address] [facility] [place] [address] documented as of this encounter Visit Diagnoses Not on filedocumented in this encounter Care Teams Search Engine Marketing Specialist Relationship Specialty Start Date End Date Reji Adams MD [facility] [place] [address] PCP - General General Internal Medicine 07/13/15 documented as of this encounter
--- OUTSIDE RECORDS SUMMARY | 2024-07-09 11:03 | XMS_ITS | Encounter Summary ---
Author Organization [facility] [place] [address] Care Team Providers Care Senior Solutions Workflow Consultant Name Role Phone Reji Adams MD Primary Care Provider [phone] Reason for Referral * Diagnostic Test (Routine) - Closed Specialty Diagnoses / Procedures Referred By Contac t Referred To Contact Radiology Diagnoses Pain in thoracic spine Procedures MRI Thoracic Spine wo Contrast (Generic) Erik Olson PA [address] [place] [address] Apd Rad Mri [address] [place] [address] Referral ID Status Reason Start Date Expiration Date V isits Requested Visits Authorized [id number] Closed Specialty Service Requested 01/06/2024 07/07/2025 1 1 Reason for Visit * Diagnostic Test (Routine) - Closed Specialty Diagnoses / Procedures Referred By Contac t Referred To Contact Radiology Diagnoses Pain in thoracic spine Procedures MRI Thoracic Spine wo Contrast (Generic) Erik Olson PA [address] [place] [address] Apd Rad Mri [address] [place] [address] Referral ID Status Reason Start Date Expiration Date V isits Requested Visits Authorized [id number] Closed Specialty Service Requested 01/06/2024 07/07/2025 1 1 Encounter Details Date Type Department Care Team (Latest Contact Info) Description 01/13/2024 1:12 PM EDT - 01/13/2024 11:59 PM EDT Hospital Encounter Radiology MRI at [facility] [address] [place] [address] Erik Olson PA [address] [place] [address] Pain in thoracic spine Discharge Disposition: Home Social History Tobacco Use Types Packs/Day Years Used Date Smoking Tobacco: Never Smokeless Tobacco: Current Chew Comments:3 cans/ week. Alcohol Use Standard Drinks/Week Comments Not Currently 0 (1 standard drink = 0.6 oz pur e alcohol) [facility] Utilities Answer Date Recorded In the past 12 months has e electric, gas, oil, or water [employer] threatened to shut off services in your [...] Sig Dispensed Refills Start Date End Date pravastatin (Pravachol) 20 mg tablet Take 1 [...] by mouth daily. ALPRAZolam (Xanax) 0.25 mg tabletIndications:Anxi ety Take 1 tablet by mouth 3 times daily as needed for Anxiety. 70 tablet 01/13/2024 02/09/2024 gabapentin (Neurontin) 300 mg capsule Take 1 capsule by mouth nightly. 90 capsule 3 12/25/2023 02/17/[address] (Cymbalta) [address] capsule Take 1 capsule by mouth daily. 30 tablet 12/11/2023 02/17/2024 meloxicam (Mobic) 7.5 mg tablet Take 1 tablet by mouth Daily at Noon. 11/18/2023 02/17/2024 celecoxib (CeleBREX) 100 mg capsule Take 100 mg by mouth daily. 09/10/2023 02/17/2024 documented as of this encounter Plan of Treatment Upcoming Encounters Date Type Department Care Team (Late st Contact Info) Description 12/15/2024 11:30 AM EDT Office Visit [place] [address] Charline Ziegler MD [facility] [place] [address] documented as of this encounter Procedures Procedure Name Priority Date/Time Associated Diagnosis Comments MRI THORACIC SPINE WITHOUT CONTRAST Routine 01/13/2024 2:05 PM EDT Pain in thoracic spine documented in this encounter Results * MRI Thoracic Spine wo Contrast (Generic) (01/13/2024 2:05 PM EDT) WORKSTATION ID [id number] RAD Anatomical Region Laterality Modality T-spine Magnetic Resonan ce Impressions 01/14/2024 8:56 AM EDT Degenerative changes of the thoracic spine. No acute abnormality. 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 Patient has a history of radiation for prostate cancer. I have personally reviewed the image(s) and the resident's interpretation and agree with the findings, Trace Howard MD at 01/14/2024 8:56 AM Thank you for letting us participate in the care of this patient. ??If you are a health care provider and have any questions regarding this report, please contact the number below. ??For patients who have questions please contact the health housekeeper caregiver that requested your imaging first. ? Narrative 01/14/2024 8:56 AM EDT EXAMINATION: MRI THORACIC SPINE WO CONTRAST (GENERIC) CLINICAL HISTORY: Thoracic back pain M54.6, Pain in thoracic spine TECHNIQUE: MRI of the thoracic spine performed without intravenous contrast administration. COMPARISON: MRI of thoracic spine 04/09/2022 FINDINGS: There are 12 rib-bearing thoracic type vertebral body segments. Unchanged minimal hyperkyphosis centered at the the C6-7 interspace. The scanogram shows post radiation changes in L5 and the sacrum. Vertebral body heights are well-maintained. Fatty marrow change present within the superior endplate of T8, potentially degenerative. No osseous metastases are noted. Multilevel likely degenerative endplate irregularities throughout the thoracic spine most pronounced with and anterior wedging at the T12 vertebral body, unchanged from prior examination. Thoracic cord signal is normal. RIGHT eccentric posterior disc bulge with partial minimal effacement of the RIGHT anterior CSF space at T6-7, unchanged from prior exam. Small posterior disc bulges also present at T10-11 and T11-12 There are multilevel facet arthropathy of the lower thoracic spine with mild bilateral foraminal narrowing present at T10-11 and T11-12. Probable RIGHT renal cyst and probable hepatic cyst present in the visualized intra-abdominal soft tissues. Procedure Note Trace Howard MD - 01/14/2024 EXAMINATION: MRI THORACIC SPINE WO CONTRAST (GENERIC) CLINICAL HISTORY: Thoracic back pain M54.6, Pain in thoracic spine TECHNIQUE: MRI of the thoracic spine performed without intravenous contrastadministration. COMPARISON: MRI of thoracic spine 04/09/2022 FINDINGS: There are 12 rib-bearing thoracic type vertebral body segments.Unchanged minimal hyperkyphosis centered at the the C6-7 interspace. The scanogram shows post radiation changes in L5 and the sacrum. Vertebral body heights are well-maintained. Fatty marrow change presentwithin the superior endplate of T8, potentially degenerative. No osseous metastases are noted. Multilevel likely degenerative endplate irregularities throughout thethoracic spine most pronounced with and anterior wedging at the T12 vertebralbody, unchanged from prior examination. Thoracic cord signal is normal. RIGHT eccentric posterior disc bulgewith partial minimal effacement of the RIGHT anterior CSF space at T6-7,unchanged from prior exam. Small posterior disc bulges also present at T10-11 [id number] There are multilevel facet arthropathy of the lower thoracic spine withmild bilateral foraminal narrowing present at T10-11 and T11-12. Probable RIGHT renal cyst and probable hepatic cyst present in thevisualized intra-abdominal soft tissues. IMPRESSION Degenerative changes of the thoracic spine. No acute abnormality. 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 Patient has ahistory of radiation for prostate cancer. I have personally reviewed the image(s) and the resident's interpretationand agree with the findings, Trace Howard MD at 01/14/2024 8:56 AM Thank you for letting us participate in the care of this patient. If youare a health care provider and have any questions regarding this report,please contact the number below. For patients who have questions please contactthe health housekeeper caregiver that requested your imaging first. Erik GUTIERREZ IMG MRI ORDERABLES documented in this encounter Visit Diagnoses Diagnosis Pain in thoracic spine documented in this encounter Care Teams Senior Solutions Workflow Consultant Relationship Specialty Start Date End Date Reji Adams MD [facility] [place] [address] PCP - General General Internal Medicine 07/13/15 documented as of this encounter
--- OUTSIDE RECORDS SUMMARY | 2024-07-09 11:03 | XMS_ITS | Encounter Summary ---
Author Organization [facility]ly [facility] [place] [address] Care Team Providers Care Hoop Riveting Machine Operator Name Role Phone Reji Adams MD Primary Care Provider [phone] Encounter Details Date Type Department Care Team (Latest Contact Info) Description 12/18/2023 Travel Social History Tobacco Use Types Packs/Day Years Used Date Smoking Tobacco: Never Smokeless Tobacco: Current Chew Comments:3 cans/ week. Alcohol Use Standard Drinks/Week Comments Not Currently 0 (1 standard drink = 0.6 oz pur e alcohol) [facility] Utilities Answer Date Recorded In the past 12 months has [employer] electric, gas, oil, or water [employer] threatened to shut off services in your [...] place to sleep or slept in a nursing home (including now)? Patient declined 12/10/2023 Sex [...] 11:30 AM EDT Office [place] [address] Charline Ziegler MD [facility] [place] [address] documented as of this encounter Visit Diagnoses Not on filedocumented in this encounter Care Teams Hoop Riveting Machine Operator Relationship Specialty Start Date End Date Reji Adams MD [facility] [place] [address] PCP - General General Internal Medicine 07/13/15 documented as of this encounter
--- OUTSIDE RECORDS SUMMARY | 2024-07-09 11:03 | XMS_ITS | Encounter Summary ---
Author Organization [facility] Address [facility] [place] [address] Care Team Providers Care Chemist Helper Name Role Phone Reji Adams MD Primary Care Provider [phone] Reason for Visit * Reason Onset Date Comments Medication Refill 03/09/2024 Encounter Details Date Type Department Care Team (Late st Contact Info) Description 03/09/2024 Refill Internal Medicine at [address] [address] Reji Adams MD [facility] GENERAL INTER[place] [address] Anxiety Social History Tobacco Use Types Packs/Day Years Used Date Smoking Tobacco: Never Smokeless Tobacco: Current Chew Comments:3 cans/ week. Alcohol Use Standard Drinks/Week Comments Not Currently 0 (1 standard drink = 0.6 oz pur e alcohol) [facility] Utilities Answer Date Recorded In the past 12 months has [employer], gas, oil, or water [employer] threatened to shut off services in your [...] place to sleep or slept in a fpc (including now)? Patient declined 12/10/2023 Sex and Gender Information Value Date Recorded Sex Assigned at Choose not to disclose 02/2023 8:26 AM EDT Gender Identity Not on file Sexual Orientation Choose not to disclose 2022 8:26 AM EDT documented as of this encounter Miscellaneous Notes * Telephone Encounter - Janelle Macedo RN - 03/09/2024 4:20 PM EDT Controlled Prescription Renewal Request Date: 03/09/2024 Requested Prescriptions Pending Prescriptions Disp Refills ALPRAZolam (Xanax) 0.25 mg tablet 70 tablet 0 Sig: Take 1 tablet by mouth 3 times daily as needed for Anxiety. Pharmacy: [id number] Benzodiazepine Agreement signed (at least once): no benzodiazepine contract on file(Acute Opioid onfile): needs new contract 03/09/2024 8:54 AM 02/09/2024 5:14 PM 01/13/2024 7:03 AM 12/16/2023 5:31 AM 11/18/2023 9:55 AM 10/23/2023 10:32 AM 07/28/2023 8:56 AM Opioid PDMP [place] PDMP Query Date 03/09/2024 02/10/2024 01/13/2024 12/16/2023 11/19/2023 10/24/2023 07/30/2023 [place] PDMP Query Date 03/09/2024 12/16/2023 11/19/2023 10/24/2023 07/30/2023 [place] PDMP Query Date 03/09/2024 12/16/2023 11/19/2023 10/24/2023 07/30/2023 PDMP (once per year) Any scripts from non- provider: no provider(May GRANGER) one time fill of Tramadol noted 11/24/2023 Last Filled (date, medication, quantity): 02/11/2024 #70 (24 day fill) Last Med Check OV: Reji Admas MD (Physician) General Internal Medicine Encounter Date: 12/11/2023 AWV Patient needs to be seen on or before (q1y): Due:12/10/2024 Sent to secretary book keeper to schedule appointment: n/a Status of Request: Pended documented in this encounter Plan of Treatment Upcoming Encounters Date Type Department Care Team (Late st Contact Info) Description 12/15/2024 11:30 AM EDT Office [place] [address] Charline Ziegler MD [facility] [place] [address] documented as of this encounter Visit Diagnoses Diagnosis Anxiety Anxiety state, unspecified documented in this encounter Care Teams Chemist Helper Relationship Specialty Start Date End Date Reji Adams MD [facility] GENERAL [place] [address] PCP - General General Internal Medicine 07/13/15 documented as of this encounter
--- OUTSIDE RECORDS SUMMARY | 2024-07-09 11:03 | XMS_ITS | Encounter Summary ---
Author Organization Formerly [facility] [place] [address] Care Team Providers Care Heddler Tier Name Role Phone Reji Adams MD Primary Care Provider [phone] Encounter Details Date Type Department Care Team (Late st Contact Info) Description 02/22/2024 Interpretation Only [address] [address] Woodrow Dunn, DO [address] [place] [address] Social History Tobacco Use Types Packs/Day Years Used Date Smoking Tobacco: Every Day Cigarettes Smokeless Tobacco: Current Chew Comments:3 cans/ week. Alcohol Use Standard Drinks/Week Comments Not Currently 0 (1 standard drink = 0.6 oz pur e alcohol) [facility] Utilities Answer Date Recorded In the past 12 months has [employer], [employer], oil, or water [employer] threatened to shut off services in your [...] place to sleep or slept in a [place] (including now)? Patient declined 12/10/2023 Sex and [...] 11:30 AM EDT Office [place] [address] Charline Ziegler MD [facility] [place] [address] documented as of this encounter Procedures Procedure Name Priority Date/Time Associated Diagnosis Comments XR CHEST ONE VIEW STAT 02/22/2024 8:1 9 PM EDT documented in this encounter Results * XR Chest One View (02/22/2024 8:19 PM EDT) PT CLASS E RAD ADMITDTTM [id number] RAD PT RAD INFO [id number]^Shaun ^Troy^L RAD EXAM DESC XCXR1^XR Chest 1 View^RIS [facility] WORKSTATION ID [id number] [facility] Anatomical Region Laterality Modality Chest N/A Radiographic Chelsea ging 02/22/2024 8:19 PM EDT Impressions 02/22/2024 8:36 PM EDT Appearance concerning for middle lobe pneumonia. Consider confirmation with lateral radiograph. Thank you for letting us participate in the care of this patient. ??If you are a health care provider and have any questions regarding this report, please contact the number below. ??For patients who have questions please contact the health respiratory care assistant that requested your imaging first. ? Narrative 02/22/2024 8:36 PM EDT EXAMINATION: XR Chest 1 View CLINICAL HISTORY: SOB TECHNIQUE: Frontal radiograph of the chest COMPARISON: CT chest January 19, 2023 FINDINGS: New ill-defined right middle lobe opacity. The left lung is clear. No pneumothorax or pleural effusions detected. Procedure Note Vamsi Skaggs MD - 02/22/2024 EXAMINATION: XR Chest 1 View CLINICAL HISTORY: SOB TECHNIQUE: Frontal radiograph of the chest COMPARISON: CT chest January 19, 2023 FINDINGS: New ill-defined right middle lobe opacity. The left lung is clear. No pneumothorax or pleural effusions detected. IMPRESSION Appearance concerning for middle lobe pneumonia. Consider confirmationwith lateral radiograph. Thank you for letting us participate in the care of this patient. If youare a health care provider and have any questions regarding this report,please contact the number below. For patients who have questions please contactthe health respiratory care assistant that requested your imaging first. Troy L Shaun DO IMG DX ORDERABLES documented in this encounter Visit Diagnoses Not on filedocumented in this encounter Care Teams Heddler Tier Relationship Specialty Start Date End Date Reji Adams MD [facility] [place] [address] PCP - General General Internal Medicine 07/13/15 documented as of this encounter
--- OUTSIDE RECORDS SUMMARY | 2024-07-09 11:03 | XMS_ITS | Encounter Summary ---
Author Organization Formerly [facility], [facility] [address] Care Team Providers Care Mud Logger Name Role Phone Reji Adams MD Primary Care Provider [phone] Encounter Details Date Type Department Care Team (Latest Contact Info) Description 12/12/2023 Travel Social History Tobacco Use Types Packs/Day Years Used Date Smoking Tobacco: Never Smokeless Tobacco: Current Chew Comments:3 cans/ week. Alcohol Use Standard Drinks/Week Comments Not Currently 0 (1 standard drink = 0.6 oz pur e alcohol) [facility] Utilities Answer Date Recorded In the past 12 months has [employer] electric, gas, oil, or water [employer] threatened to shut off services in your [...] place to sleep or slept in a snf (including now)? Patient declined 12/10/2023 Sex and [...] 11:30 AM EDT Office [place] [address] Charline Ziegler MD [facility] [place] [address] documented as of this encounter Visit Diagnoses Not on filedocumented in this encounter Care Teams Mud Logger Relationship Specialty Start Date End Date Reji Adams MD [facility] [place] [address] PCP - General General Internal Medicine 07/13/15 documented as of this encounter
--- OUTSIDE RECORDS SUMMARY | 2024-07-09 11:03 | XMS_ITS | Encounter Summary ---
Author Organization [facility] Address [facility] [place] [address] Care Team Providers Care Surfboard Maker Name Role Phone Reji Adams MD Primary Care Provider [phone] Reason for Visit * Reason Onset Date Comments Medication Refill 01/13/2024 Encounter Details Date Type Department Care Team (Late st Contact Info) Description 01/13/2024 Refill Internal Medicine at [address] [address] Reji Adams MD [facility] GENERAL [place] [address] Social History Tobacco Use Types Packs/Day Years Used Date Smoking Tobacco: Never Smokeless Tobacco: Current Chew Comments:3 cans/ week. Alcohol Use Standard Drinks/Week Comments Not Currently 0 (1 standard drink = 0.6 oz pur e alcohol) [facility] Utilities Answer Date Recorded In the past 12 months has [employer], gas, oil, or water [employer] threatened to shut off services in your [...] Telephone Encounter - Janelle Macedo RN - 01/13/2024 10:21 AM EDT Prescription Renewal Request Name: Ken Mckeon : 1945 Prescription(s) Requested: Requested Prescriptions Pending Prescriptions Disp Refills pravastatin (Pravachol) 20 mg tablet 90 tablet 3 Sig: Take 1 tablet by mouth daily. Medication still has refills on file with pharmacy; message sent to patient to contact pharmacy. Date of Last Refill (for each medication): 10/24/2023 90:3 [facility][id number] Status of request: Refused Allergies Allergen Reactions Penicillins Anaphylaxis Tongue swelling Betamethasone hiccups after injection Dexamethasone Hiccups after injection Triamcinolone Acetonide Hiccups Janelle Macedo RN 01/13/24 10:21 AM documented in this encounter Plan of Treatment Upcoming Encounters Date Type Department Care Team (Late st Contact Info) Description 12/15/2024 11:30 AM EDT Office Visit [place] [address] Charline Ziegler MD [facility] [place] [address] documented as of this encounter Visit Diagnoses Not on filedocumented in this encounter Care Teams Surfboard Maker Relationship Specialty Start Date End Date Reji Adams MD [facility] GENER[place] [address] PCP - General General Internal Medicine 07/13/15 documented as of this encounter
--- OUTSIDE RECORDS SUMMARY | 2024-07-09 11:03 | XMS_ITS | Encounter Summary ---
Author Organization [facility] Address [facility] [place] [address] Care Team Providers Care Field Assessor Name Role Phone Reji Adams MD Primary Care Provider [phone] Encounter Details Date Type Department Care Team (Late st Contact Info) Description 04/14/2024 10:00 AM EDT Office [place] [address] Charline Ziegler MD [facility] [place] [address] Chronic constipation (Primary Dx); Pelvic floor dysfunction Social History Tobacco Use Types Packs/Day Years Used Date Smoking Tobacco: Never Smokeless Tobacco: Current Chew Comments:3 cans/ week. Alcohol Use Standard Drinks/Week Comments Not Currently 0 (1 standard drink = 0.6 oz pur e alcohol) [facility] Utilities Answer Date Recorded In the past 12 months has [employer] gas, oil, or water [employer] threatened to shut off services in your [...] place to sleep or slept in a custodial (including now)? Patient declined 12/10/2023 Sex and [...] Pulse 57 04/14/2024 9:56 AM EDT Temperature - - Respiratory Rate 16 04/14/2024 9:56 AM EDT Oxygen Saturation - - Inhaled Oxygen Concentration - - Weight 95 kg (209 lb 6.4 oz) 04/14/2024 9:56 AM EDT Height 179.1 cm (5' 10.5) 04/14/2024 9:56 AM ED T Body Mass Index 29.62 04/14/2024 9:56 AM EDT documented in this encounter Progress Notes * Charline Ziegler MD - 04/14/2024 10:00 AM EDT GI Follow Up Visit Chief Complaint: Ken Mckeon is a 78 y.o. here for follow-up of constipation. Detailed history on 01/31/20: 78 y.o. adult with history of cervical spine surgery, OA, insomnia, anxiety, peripheral neuropathy, prostate cancer s/p prostatectomy in 2019 and chronic constipation. He is now s/p bilat hip replacement, s/p sacroplasty in 04/2022, and s/p XRT in spring 2021 for prostate cancer He complains of several years of up to 5 days without a BM, then numerous soft, small nonbloody BMs([place] 3-5), with frequent straining with failed attempts at defecation regularly. He denies sensation of incomplete evacuation, prolonged toileting, or digitation. He endorses intermittent oropharyngeal dysphagia feeling like forgetting how to swallow with spit/saliva, but denies dysphagia to solids or liquids. Denies globus sensation. He endorses infrequent bothersome heartburn, usually when he takes Cialis. -ED visit to OSH 07/2023 for sudden right-sided abdominal pain (RUQ, non- radiating), not associatedwith eating. CT non-con was normal without calcified stones, per patient no stool burden seen ([facility] He did feel better after 20 minutes of IVF lying flat. He was subsequently discharged. He followed up with PCP after. Pain has not recurred since. He denies sick contacts, recent travel, or recent antibiotics. He had a colonoscopy in 06/2022 and felt better for a short period after that Prior regimen Senna as needed Mag citrate as needed Dulcolax as needed Up to miralax 2 caps twice daily for <1 week (bloating, ineffective) Prior enemas x2 and suppositories Did not try low FODMAP Interval history: -enjoying his summer, calm and quiet which he likes -RUQUS ordered for RUQ pain ; pain had resolved and has not returned since that one episode -No F/chills/N/V. Taking Miralax and metamucil daily- having 1-2 BM daily, still not normal to Gregg, mostly due to pharmacy director color, smaller size. Feels evacuated after BM. No blood or mucous in stool.No fecal incontinence. Tries to have balanced diet with protein, vegetables but feels he could do better. Still has a broken tooth that makes it difficult to chew. Unfortunately fixing this right nowis cost-prohibitive. Mainly eating soft foods only. Current regimen miralax daily Review of systems: 14-point review of systems reviewed and negative except as above. Medications: Outpatient Medications Prior to Visit Medication Sig Dispense Refill ALPRAZolam (Xanax) 0.25 mg tablet Take 1 tablet by mouth 3 times daily as needed for Anxiety. 70 tablet 0 pravastatin (Pravachol) 20 mg tablet Take 1 [...] tablet Take 1 tablet by mouth daily. magnesium citrate 100 mg Tablet Take 200 mg by mouth daily. No facility-administered medications prior to visit. Allergies: is allergic to penicillins, betamethasone, dexamethasone, and triamcinolone acetonide. Past Medical History: has a past medical history of BPH (benign prostatic hyperplasia), Neck pain (08/24/2012), OA (osteoarthritis) of knee, and Spinal cord injury at (2016). Past Surgical History: has a past surgical history that includes created by interface; Ligate/StripLong Saph Vein Belw Sep-Fem Junc (64248) (06/02/2012); Phleb Veins - Extrem - To 20 (74419) (06/02/2012); Colonoscopy, Diagnostic (00238) (09/07/2013); Upper Gi Endoscopy, Biopsy ([id number]) (N/A, 09/02/2017); US Guided Biopsy Prostate ([place] ONLY) (02/08/2019); Colonoscopy, Lisa Currie, Snare ([id number]) (N/A, 01/25/2020); Upper Gi Endoscopy, Biopsy ([id number]) (N/A, 01/25/2020); Endoscopic Us Exam, Esoph ([id number]) (N/A, 03/14/2020); Upper Gi Endoscopy, Biopsy ([id number]) (N/A, 03/14/2020); CT Guided Sacroplasty/Vertebroplasty (05/22/2022); and Colonoscopy, Diagnostic (16848) (N/A, 07/26/2022). Family History: family history includes Cancer in his father and mother; Diabetes in his father. denies family history of colon cancer, IBD, or celiac disease in mother father or other family members Social History: reports that he has never smoked. His smokeless tobacco use includes chew. He reports that he does not currently use alcohol. He reports that he does not use drugs. Physical Exam BP 126/71 (BP Location (NBP): Right arm, Patient Position: Sitting) Pulse 57 Resp 16 Ht 179.1cm (5' 10.5) Wt 95 kg (209 lb 6.4 oz) BMI 29.62 kg/m?? GEN: NAD, A&Ox3 HEENT: EOMI, PERLLA, MMM, clear OP PULM: CTABL CV: RRR. Nl S1, S2. No m/r/g ABD: Soft NTND, NBS, no rebound/guarding LE: Symmetric, no edema, WWP Laboratory studies, imaging, and procedures (in summary of my review of prior records): Colonoscopy 07/26/22 - normal with diverticulosis Assessment/Plan: Mr. Mckeon is a 78 y.o. patient with #acute RUQ pain- now relieved and back to baseline. Differential includes worsening constipation, gastroenteritis, biliary colic, MSK pain. Initially thought to get RUQUS to evaluate for gallstones- no calcified stones seen. This order and patient defers additional testing for now due to resolution of symptoms, which I think is reasonable. Will address constipation management below. # chronic constipation - more regular on Miralax daily which is a large improvement for Gregg. Reviewed bulking agents- is now tolerating Metamucil and helping with more formed, larger BM and helpingSteve feel evacuated. Also has prn senna when he is more constipated which helps. We discussed that complete symptom relief may not be a fully achievable goal for this chronic condition, but that improvement in quality of life, healthy days at work and family functions, and also general symptom improvement may be more reasonable goals. We discussed that treatments should be tried individually and for periods of at least 4-8 weeks to truly assess symptom response. -Miralax daily -Metamucil daily -Senna prn -high-fiber diet, counseled on hydration Backup options he can try with his PCP Diet: Try four consecutive dietary trials to add to the regimen. Each dietary trial should be last at least two weeks and be done separately: 1) Make a smoothie once daily made of ?? cup kefir, ?? cup papaya, 1/3 cup aloe juice, one peeled (green or gold) kiwi fruit, blended with ice. 2) Take two peeled (green or gold) kiwifruit per day. 3) Mix 1 cup apple sauce, 1 cup oat bran, ?? cup prune juice. Take one Tbsp. Daily. Freeze the restin an ice cube tray to use as needed. Follow up 6-8 months 30 minutes spent in chart review, [id number]-jt-[id number] time and coordination of care with the patient today. Charline Ziegler MD [facility] [place] [address] documented in this encounter Plan of Treatment Upcoming Encounters Date Type Department Care Team (Late st Contact Info) Description 12/15/2024 11:30 AM EDT Office [place] [address] Charline Ziegler MD [facility] [place] [address] documented as of this encounter Visit Diagnoses Diagnosis Chronic constipation- Primary Unspecified constipation Pelvic floor dysfunction Pelvic muscle wasting documented in this encounter Care Teams Field Assessor Relationship Specialty Start Date End Date Reji Adams MD [facility] GENERAL [place] [address] PCP - General General Internal Medicine 07/13/15 documented as of this encounter
--- OUTSIDE RECORDS SUMMARY | 2024-07-09 11:03 | XMS_ITS | Encounter Summary ---
Author Organization [facility] [place] [address] Care Team Providers Care Boats Renter Name Role Phone Reji Adams MD Primary Care Provider [phone] Reason for Referral * Diagnostic Test (Routine) - Closed Specialty Diagnoses / Procedures Referred By Contac t Referred To Contact Radiology Diagnoses Lumbar back pain with radiculopathy affecting right lower extremity Procedures MRI Lumbar Spine wwo Contrast Erik Olson PA [address] [place] [address] [facility] Rad Mri [address] [place] [address] Referral ID Status Reason Start Date Expiration Date V isits Requested Visits Authorized [id number] Closed Specialty Service Requested 12/25/2023 06/26/2025 1 1 Reason for Visit * Diagnostic Test (Routine) - Closed Specialty Diagnoses / Procedures Referred By Contac t Referred To Contact Radiology Diagnoses Lumbar back pain with radiculopathy affecting right lower extremity Procedures MRI Lumbar Spine wwo Contrast Erik Olson PA [address] [place] [address] [facility] Rad Mri [address] [place] [address] Referral ID Status Reason Start Date Expiration Date V isits Requested Visits Authorized [id number] Closed Specialty Service Requested 12/25/2023 06/26/2025 1 1 Encounter Details Date Type Department Care Team (Latest Contact Info) Description 01/02/2024 8:52 AM EDT - 01/02/2024 11:59 PM EDT Hospital Encounter Radiology MRI at [facility] [place] [address] Erik Olson PA [address] [place] [address] Lumbar back pain with radiculopathy affecting right lower extremity Discharge Disposition: Home Social History Tobacco Use Types Packs/Day Years Used Date Smoking Tobacco: Never Smokeless Tobacco: Current Chew Comments:3 cans/ week. Alcohol Use Standard Drinks/Week Comments Not Currently 0 (1 standard drink = 0.6 oz pur e alcohol) [facility] Utilities Answer Date Recorded In the past 12 months has [employer], gas, oil, or water [employer] threatened to shut off services in your [...] place to sleep or slept in a long-term (including now)? Patient declined 12/10/2023 Sex and [...] tablet Take 1 tablet by mouth daily. gabapentin (Neurontin) 300 mg capsule Take 1 capsule by mouth nightly. 90 capsule 3 12/25/2023 02/17/2024 ALPRAZolam (Xanax) 0.25 mg tabletIndications:Anxi ety Take 1 tablet by mouth 3 times daily as needed for Anxiety. 70 tablet 12/16/2023 01/13/[address] (Cymbalta) [address] capsule [...] 11:30 AM EDT Office Visit Gastroenterology at [facility] [place] [address] Charline Ziegler MD [facility] [place] [address] documented as of this encounter Procedures Procedure Name Priority Date/Time Associated Diagnosis Comments MRI LUMBAR SPINE WITH/WO CONTRAST Routine 01/02/2024 10:04 AM EDT Lumbar back pain with radiculopathy affecting right lower extremity documented in this encounter Results * MRI Lumbar Spine wwo Contrast (01/02/2024 10:04 AM EDT) PostedIn WORKSTATION ID [id number] [facility] Anatomical Region Laterality Modality L-spine Magnetic Resonan ce Impressions 01/03/2024 11:02 AM EDT 1. ??Postradiation and postoperative changes of the lower lumbar sacral spine. No evidence of osseous metastasis. 2. ??Severe right L2-3 foraminal stenosis is unchanged. 3. ??Unchanged moderate foraminal stenoses on the left at L2-3 and bilaterally at L3-4. Comment: The following findings are so common in people without low back pain that while we report their presence, they must be interpreted with caution and in context of the clinical situation (Reference- Ankitavik Et Al, Spine 2001). Findings: (Prevalence in patients without low back pain), disc degeneration (decreased T2 signal, height loss, bulge) (91%), disc T2-signal loss (83%), disc height loss (56%), disc bulge (64%), disc protrusion (32%), annular fissure (38%). Thank you for letting us participate in the care of this patient. ??If you are a health care provider and have any questions regarding this report, please contact the number below. ??For patients who have questions please contact the health in home caregiver that requested your imaging first. ? Narrative 01/03/2024 11:02 AM EDT EXAMINATION: MRI LUMBAR SPINE WWO CONTRAST CLINICAL HISTORY: several prior lumbar surgeries with new right radicular pain. M54.16, Radiculopathy, lumbar region TECHNIQUE: MRI of the lumbar spine was performed before and after the intravenous administration of 18cc Dotarem. COMPARISON: MRI lumbar spine December 18, 2023 FINDINGS: Mild anterior wedging of L1 without edema, stable. Vertebral body height and alignment are otherwise maintained. Vertebroplasty cement within the left L5 vertebral body and on the right at S1-2, laminectomy changes from L3-4 through L5-S1, and osseous fusion of the L4-S1 facets, as before. Diffuse fatty marrow conversion from L5 through the sacrum consistent with prior radiation therapy. Otherwise normal marrow signal. No osseous metastases appreciated. Right renal cysts are unchanged. No paraspinal mass or fluid collection. Fatty atrophy of the dorsal paraspinous musculature greatest at the lower lumbar levels, as before. There is mild enhancement at the L5 laminectomy site. No abnormal enhancement within the spinal canal. Artifact from bilateral hip replacements. T12-L1: Mild facet arthropathy and ligamentous buckling. No significant canal or foraminal stenosis. L1-2: Congenitally narrow spinal canal, minimal disc osteophyte and ligamentous buckling. Mild canal and bilateral foraminal stenosis. Unchanged. L2-3: Disc osteophyte, severe right and moderate left facet arthropathy. Severe right and moderate left foraminal stenosis and mild canal stenosis, unchanged. There is mild bilateral subarticular recess stenosis with contact of the traversing L3 nerve roots. L3-4: Minimal disc bulge. Severe bilateral facet arthropathy. Moderate bilateral foraminal stenosis. Unchanged. L4-5: Hypertrophic fused facets and minimal osteophytic ridging contribute to mild canal stenosis. Mild to moderate bilateral foraminal stenosis. Unchanged. L5-S1: No significant disc bulge. Residual osteophytic ridging and fused facets contribute to left greater than right subarticular recess stenosis, mild right and icmb-vv-gosmoava left foraminal stenosis. Unchanged. Procedure Note Alfreda Perez MD - 01/03/2024 EXAMINATION: MRI LUMBAR SPINE WWO CONTRAST CLINICAL HISTORY: several prior lumbar surgeries with new right radicularpain. M54.16, Radiculopathy, lumbar region TECHNIQUE: MRI of the lumbar spine was performed before and after the intravenous administration of 18cc Dotarem. COMPARISON: MRI lumbar spine December 18, 2023 FINDINGS: Mild anterior wedging of L1 without edema, stable. Vertebral body heightand alignment are otherwise maintained. Vertebroplasty cement within the left L5 vertebral body and on the rightat S1-2, laminectomy changes from L3-4 through L5-S1, and osseous fusion ofthe L4-S1 facets, as before. Diffuse fatty marrow conversion from L5 throughthe sacrum consistent with prior radiation therapy. Otherwise normal marrowsignal. No osseous metastases appreciated. Right renal cysts are unchanged. No paraspinal mass or fluid collection. Fatty atrophy of the dorsalparaspinous musculature greatest at the lower lumbar levels, as before. There is mild enhancement at the L5 laminectomy site. No abnormalenhancement within the spinal canal. Artifact from bilateral hip replacements. T12-L1: Mild facet arthropathy and ligamentous buckling. No significantcanal or foraminal stenosis. L1-2: Congenitally narrow spinal canal, minimal disc osteophyte andligamentous buckling. Mild canal and bilateral foraminal stenosis. Unchanged. L2-3: Disc osteophyte, severe right and moderate left facet arthropathy.Severe right and moderate left foraminal stenosis and mild canal stenosis,unchanged. There is mild bilateral subarticular recess stenosis with contact of the traversing L3 nerve roots. L3-4: Minimal disc bulge. Severe bilateral facet arthropathy. Moderatebilateral foraminal stenosis. Unchanged. L4-5: Hypertrophic fused facets and minimal osteophytic ridging contributeto mild canal stenosis. Mild to moderate bilateral foraminal stenosis.Unchanged. L5-S1: No significant disc bulge. Residual osteophytic ridging and fusedfacets contribute to left greater than right subarticular recess stenosis, mildright and [id number]-ah-azvwyzra left foraminal stenosis. Unchanged. IMPRESSION 1. Postradiation and postoperative changes of the lower lumbar sacralspine. No evidence of osseous metastasis. 2. Severe right L2-3 foraminal stenosis is unchanged. 3. Unchanged moderate foraminal stenoses on the left at L2-3 andbilaterally at L3-4. Comment: The following findings are so common in people without low backpain that while we report their presence, they must be interpreted with cautionand in context of the clinical situation (Reference- Ankitavik Et Al, [id number]). Findings: (Prevalence in patients without low back pain), discdegeneration (decreased T2 signal, height loss, bulge) (91%), disc T2-signal loss(83%), disc height loss (56%), disc bulge (64%), disc protrusion (32%), annularfissure (38%). Thank you for letting us participate in the care of this patient. If youare a health care provider and have any questions regarding this report,please contact the number below. For patients who have questions please contactthe health in home caregiver that requested your imaging first. Erik HUNG MRI ORDERABLES documented in this encounter Visit Diagnoses Diagnosis Lumbar back pain with radiculopathy affecting right lower extremity documented in this encounter Administered Medications Inactive Administered Medications - up to 3 most recent administrations Medication Order MAR Action Action Date Dose Rate Site gadoterate meglumine (Dotarem) (0.5 mMol/mL) injection solution 0-100 mL 0-100 mL, Intravenous, ONCE PRN, 1 dose, Starting on Fri01/02/24 at 0939, Until Fri01/02/24 at 0939, Per Protocol, Radiology Contrast, Routine Given 01/02/2024 9:39 AM EDT 18 mLs documented in this encounter Care Teams Boats Renter Relationship Specialty Start Date End Date Reji Adams MD [facility] [place] [address] PCP - General General Internal Medicine 07/13/15 documented as of this encounter
--- OUTSIDE RECORDS SUMMARY | 2024-07-09 11:03 | XMS_ITS | Encounter Summary ---
Author Organization [facility] [place] [address] Care Team Providers Care Batch Unloader Name Role Phone Reji Adams MD Primary Care Provider [phone] Encounter Details Date Type Department Care Team (Latest Contact Info) Description 02/19/2024 Travel Social History Tobacco Use Types Packs/Day Years Used Date Smoking Tobacco: Every Day Cigarettes Smokeless Tobacco: Current Chew Comments:3 cans/ week. Alcohol Use Standard Drinks/Week Comments Not Currently 0 (1 standard drink = 0.6 oz pur e alcohol) [facility] Utilities Answer Date Recorded In the past 12 months has [employer], gas, oil, or water [employer] threatened to shut off services in your [...] 11:30 AM EDT Office [place] [address] Charline Ziegler MD [facility] [place] [address] documented as of this encounter Visit Diagnoses Not on filedocumented in this encounter Care Teams Batch Unloader Relationship Specialty Start Date End Date Reji Adams MD [facility] [place] [address] PCP - General General Internal Medicine 07/13/15 documented as of this encounter
--- OUTSIDE RECORDS SUMMARY | 2024-07-09 11:03 | XMS_ITS | Encounter Summary ---
Author Organization [facility] [place] [address] Care Team Providers Care Liquefaction Supervisor Name Role Phone Reji Adams MD Primary Care Provider [phone] Encounter Details Date Type Department Care Team (Late st Contact Info) Description 12/25/2023 Orders [place] [address] Rigo Kiran, [facility] [place] [address] Social History Tobacco Use Types Packs/Day Years Used Date Smoking Tobacco: Never Smokeless Tobacco: Current Chew Comments:3 cans/ week. Alcohol Use Standard Drinks/Week Comments Not Currently 0 (1 standard drink = 0.6 oz pur e alcohol) [facility] Utilities Answer Date Recorded In the past 12 months has [employer], oil, or water [employer] threatened to shut off services in your [...] place to sleep or slept in a usp (including now)? Patient declined 12/10/2023 Sex and [...] 11:30 AM EDT Office [place] [address] Charline Ziegler MD [facility] [place] [address] documented as of this encounter Visit Diagnoses Not on filedocumented in this encounter Care Teams Liquefaction Supervisor Relationship Specialty Start Date End Date Reji Adams MD [facility] [place] [address] PCP - General General Internal Medicine 07/13/15 documented as of this encounter
--- OUTSIDE RECORDS SUMMARY | 2024-07-09 11:03 | XMS_ITS | Encounter Summary ---
Author Organization [facility] Address [facility] [place] [address] Care Team Providers Care Radio Journalist Name Role Phone Reji Adams MD Primary Care Provider [phone] Reason for Visit * Reason Onset Date Comments Medication Refill 01/13/2024 Encounter Details Date Type Department Care Team (Late st Contact Info) Description 01/13/2024 Refill Internal Medicine at [address] [address] Reji Adams MD [facility] [place] [address] Anxiety Social History Tobacco Use Types Packs/Day Years Used Date Smoking Tobacco: Never Smokeless Tobacco: Current Chew Comments:3 cans/ week. Alcohol Use Standard Drinks/Week Comments Not Currently 0 (1 standard drink = 0.6 oz pur e alcohol) [facility] Utilities Answer Date Recorded In the past 12 months has [employer], gas, oil, or water [employer] threatened to shut off services in your [...] Miscellaneous Notes * Telephone Encounter - Tito Meeks MA - 01/13/2024 3:34 PM EDT Date: 01/13/2024 Pharmacy: [facility] Agreement signed (at least once): None 01/13/2024 7:03 AM 12/16/2023 5:31 AM 11/18/2023 9:55 AM 10/23/2023 10:32 AM 07/28/2023 8:56 AM 05/02/2023 9:37 AM 03/09/2023 6:55 PM Opioid PDMP [place] PDMP Query Date 01/13/2024 12/16/2023 11/19/2023 10/24/2023 07/30/202305/02/2023 03/10/2023 [place] PDMP Query Date 12/16/2023 11/19/2023 10/24/2023 07/30/2023 05/02/2023 03/10/2023 [place] PDMP Query Date 12/16/2023 11/19/2023 10/24/2023 07/30/2023 05/02/2023 03/10/2023 PDMP (once per year) Any scripts from non- provider: No Last Filled (date, medication, quantity): 12/16/2023 Alorazolam 0.25 mg tablet #70 Last Med Check OV: 12/11/2023 Patient needs to be seen on or before (q1y): 11/2024 Sent to clerk secretary to schedule appointment: No documented in this encounter Plan of Treatment Upcoming Encounters Date Type Department Care Team (Late st Contact Info) Description 12/15/2024 11:30 AM EDT Office [place] [address] Charline Ziegler MD [facility] [address] documented as of this encounter Visit Diagnoses Diagnosis Anxiety Anxiety state, unspecified documented in this encounter Care Teams Radio Journalist Relationship Specialty Start Date End Date Reji Adams MD [facility] [place] [address] PCP - General General Internal Medicine 07/13/15 documented as of this encounter
--- OUTSIDE RECORDS SUMMARY | 2024-07-09 11:03 | XMS_ITS | Encounter Summary ---
Author Organization [facility] Address [facility] [place] [address] Care Team Providers Care Farm Planner Name Role Phone Reji Adams MD Primary Care Provider Reason for Referral * Diagnostic Test (Routine) - Closed Specialty Diagnoses / Procedures Referred By Contac t Referred To Contact Radiology Diagnoses Radiculopathy of lumbar region Procedures MRI Lumbar Spine wo Contrast (Generic) Reji Adams MD [facility] GENERAL [place] [address] [facility] Rad Mri [address] [place] [address] Referral ID Status Reason Start Date Expiration Date V isits Requested Visits Authorized [id number] Closed Specialty Service Requested 12/11/2023 06/12/2025 1 1 Reason for Visit * Diagnostic Test (Routine) - Closed Specialty Diagnoses / Procedures Referred By Contac t Referred To Contact Radiology Diagnoses Radiculopathy of lumbar region Procedures MRI Lumbar Spine wo Contrast (Generic) Reji Adams MD [facility] GENER[facility] [place] [address] [facility] Rad Mri [address] [place] [address] Referral ID Status Reason Start Date Expiration Date V isits Requested Visits Authorized [id number] Closed Specialty Service Requested 12/11/2023 06/12/2025 1 1 Encounter Details Date Type Department Care Team (Latest Contact Info) Description 12/18/2023 9:12 AM EDT - 12/18/2023 11:59 PM EDT Hospital Encounter Radiology MRI at [facility] [place] [address] Reji Adams MD [facility] GENERAL [place] [address] Radiculopathy of lumbar region Discharge Disposition: Home Social History Tobacco Use Types Packs/Day Years Used Date Smoking Tobacco: Never Smokeless Tobacco: Current Chew Comments:3 cans/ week. Alcohol Use Standard Drinks/Week Comments Not Currently 0 (1 standard drink = 0.6 oz pur e alcohol) [facility] Utilities Answer Date Recorded In the past 12 months has e [employer], gas, oil, or water [employer] threatened to shut off services in your [...] 11:30 AM EDT Office Visit Gastroenterology at [facility] [place] [address] Charline Ziegler MD [facility] [place] [address] documented as of this encounter Procedures Procedure Name Priority Date/Time Associated Diagnosis Comments MRI LUMBAR SPINE WITHOUT CONTRAST Routine 12/18/2023 10:05 AM EDT Radiculopathy of lumbar region documented in this encounter Results * MRI Lumbar Spine wo Contrast (Generic) (12/18/2023 10:05 AM EDT) [employer] Signature WORKSTATION ID [id number] [facility] Anatomical Region Laterality Modality L-spine Magnetic Resonan ce Impressions 12/18/2023 3:29 PM EDT Marked left foraminal narrowing on the left at L2-3 which may correspond with the patient's history of left L2-3 radiculopathy. Postsurgical changes from prior fusion. No areas of critical spinal canal stenosis. Multilevel foraminal narrowing. No neoplastic changes are noted. Comment: The following findings are so common [...] who have questions please contact the health memory care director that requested your imaging first. ? Electronically signed by: Trace Howard MD, [facility] ([phone]), at 12/18/2023 3:29 PM Narrative 12/18/2023 3:29 PM EDT EXAMINATION: MRI LUMBAR SPINE WO CONTRAST (GENERIC) CLINICAL HISTORY: L2-3 radiculopathy M54.16, Radiculopathy, lumbar region TECHNIQUE: MRI of the lumbar spine performed without intravenous contrast administration. COMPARISON: Previous MRI of the lumbar spine performed on 04/09/2022, plain radiograph of the pelvis performed 11/24/[address] of the abdomen 08/15/2023 FINDINGS: This patient has undergone previous lumbosacral fusion and bilateral hip replacement. The SI joints are fused. Posterolateral bony fusion mass at the L4, L5 and sacral levels. Homogeneous T1 hyperintense marrow changes identified at L4-L5 and the sacrum are consistent with previous radiotherapy. The patient has a history of prostate carcinoma. Graeff a focal hypointensity within the left L5 vertebral body corresponds to cement placement on the previous CT. No metastatic deposits are identified within the lumbosacral spine. 2 right-sided renal cysts are identified. The conus medullaris is normal in location and appearance. T12-L1 level reveals no significant stenosis. L1-2 demonstrates disc bulge, short pedicles and left lateral osteophyte. No significant spinal canal stenosis. Moderate left foraminal narrowing moderately severe right foraminal narrowing. L2-L3 demonstrates broad osteophyte, bilateral severe foraminal narrowing, laminectomy changes but no significant spinal canal stenosis. L3-L4 demonstrates previous laminectomy. Spinal canal diameter is satisfactory. Mild subarticular narrowing is noted on the right. Moderate left foraminal narrowing. L4-L5 is a fused level. Bony fusion masses noted posterolaterally. Disc bulge is present. The canal shows normal diameter. The foramina reveal mild narrowing. L5-S1 is a fused level. The spinal canal shows normal diameter. There is no disc extrusion. The foramina are patent. Procedure Note Trace Howard MD - 12/18/2023 EXAMINATION: MRI LUMBAR SPINE WO CONTRAST (GENERIC) CLINICAL HISTORY: L2-3 radiculopathy M54.16, Radiculopathy, lumbar region TECHNIQUE: MRI of the lumbar spine performed without intravenous contrastadministration. COMPARISON: Previous MRI of the lumbar spine performed on 04/09/2022, plain radiographof the pelvis performed 11/24/[address] of the abdomen 08/15/2023 FINDINGS: This patient has undergone previous lumbosacral fusion and bilateral hip replacement. The SI joints are fused. Posterolateral bony fusion mass atthe L4, L5 and sacral levels. Homogeneous T1 hyperintense marrow changes identified at L4-L5 and thesacrum are consistent with previous radiotherapy. The patient has a history ofprostate carcinoma. Graeff a focal hypointensity within the left L5 vertebralbody corresponds to cement placement on the previous CT. No metastatic deposits are identified within the lumbosacral spine. 2 right-sided renal cysts are identified. The conus medullaris is normal in location and appearance. T12-L1 level reveals no significant stenosis. L1-2 demonstrates disc bulge, short pedicles and left lateral osteophyte.No significant spinal canal stenosis. Moderate left foraminal narrowingmoderately severe right foraminal narrowing. L2-L3 demonstrates broad osteophyte, bilateral severe foraminalnarrowing, laminectomy changes but no significant spinal canal stenosis. L3-L4 demonstrates previous laminectomy. Spinal canal diameter issatisfactory. Mild subarticular narrowing is noted on the right. Moderate leftforaminal narrowing. L4-L5 is a fused level. Bony fusion masses noted posterolaterally. Discbulge is present. The canal shows normal diameter. The foramina reveal mildnarrowing. L5-S1 is a fused level. The spinal canal shows normal diameter. There isno disc extrusion. The foramina are patent. IMPRESSION Marked left foraminal narrowing on the left at L2-3 which may correspondwith the patient's history of left L2-3 radiculopathy. Postsurgical changes from prior fusion. No areas of critical spinal canal stenosis. Multilevel foraminal narrowing. No neoplastic changes are noted. Comment: The following findings are so common in people without low backpain that while we report their presence, they must be interpreted with cautionand in context of the clinical situation (Reference- Jarvik Et Al, [id number]). Findings: (Prevalence in patients without low back [...] patients who have questions please contactthe health memory care director that requested your imaging first. Reji Adams MD IMG MRI ORDERABLES documented in this encounter Visit Diagnoses Diagnosis Radiculopathy of lumbar region Thoracic or lumbosacral neuritis or radiculitis, unspecified documented in this encounter Care Teams Farm Planner Relationship Specialty Start Date End Date Reji Adams MD [facility] GENERAL [place] [address] PCP - General General Internal Medicine 07/13/15 documented as of this encounter
--- OUTSIDE RECORDS SUMMARY | 2024-07-09 11:03 | XMS_ITS | Encounter Summary ---
Author Organization [facility] Address [facility] [place] [address] Care Team Providers Care Pulmonary Physician Name Role Phone Reji Adams MD Primary Care Provider [phone] Reason for Visit * Reason Onset Date Comments Medication Refill 02/09/2024 Encounter Details Date Type Department Care Team (Late st Contact Info) Description 02/09/2024 Refill Internal Medicine at [address] [address] Reji Adams MD [facility] [place] [address] Anxiety Social History Tobacco Use Types Packs/Day Years Used Date Smoking Tobacco: Never Smokeless Tobacco: Current Chew Comments:3 cans/ week. Alcohol Use Standard Drinks/Week Comments Not Currently 0 (1 standard drink = 0.6 oz pur e alcohol) [facility] Utilities Answer Date Recorded In the past 12 months has [employer], gas, oil, or water [employer] threatened to shut off services in your [...] encounter Miscellaneous Notes * Telephone Encounter - Horace Haddad, [facility] - 02/10/2024 3:42 PM EDT Date: 02/10/2024 Pharmacy[facility] Agreement signed (at least once): 02/09/2024 5:14 PM 01/13/2024 7:03 AM 12/16/2023 5:31 AM 11/18/2023 9:55 AM 10/23/2023 10:32 AM 07/28/2023 8:56 AM 05/02/2023 9:37 AM Opioid PDMP [place] PDMP Query Date 02/10/2024 01/13/2024 12/16/2023 11/19/2023 10/24/2023 07/30/2023 05/02/2023 [place] PDMP Query Date 12/16/2023 11/19/2023 10/24/2023 07/30/2023 05/02/2023 [place] PDMP Query Date 12/16/2023 11/19/2023 10/24/2023 07/30/2023 05/02/2023 PDMP (once per year) Any scripts from non- provider: no Last Filled (date, medication, quantity): 01/13 Alprazolam 0.25 Mg Tablet Last Med Check OV: 12/11/23 Patient needs to be seen on or before (q1y): 12/10/24 Sent to executive legal secretary to schedule appointment: no documented in this encounter Plan of Treatment Upcoming Encounters Date Type Department Care Team (Late st Contact Info) Description 12/15/2024 11:30 AM EDT Office [place] [address] Charline Ziegler MD [facility] [place] [address] documented as of this encounter Visit Diagnoses Diagnosis Anxiety Anxiety state, unspecified documented in this encounter Care Teams Pulmonary Physician Relationship Specialty Start Date End Date Reji Adams MD [facility] [place] [address] PCP - General General Internal Medicine 07/13/15 documented as of this encounter
--- OUTSIDE RECORDS SUMMARY | 2024-07-09 11:03 | XMS_ITS | Encounter Summary ---
Author Organization [facility] Address [facility] [place] [address] Care Team Providers Care Steam Tender Name Role Phone Reji Adams MD Primary Care Provider [phone] Reason for Visit * Reason Onset Date Comments Medication Refill 04/02/2024 Encounter Details Date Type Department Care Team (Late st Contact Info) Description 04/02/2024 Refill Internal Medicine at [address] [address] Reji Adams MD [facility] [place] [address] Anxiety Social History Tobacco Use Types Packs/Day Years Used Date Smoking Tobacco: Never Smokeless Tobacco: Current Chew Comments:3 cans/ week. Alcohol Use Standard Drinks/Week Comments Not Currently 0 (1 standard drink = 0.6 oz pur e alcohol) [facility] Utilities Answer Date Recorded In the past 12 months has [employer], gas, oil, or water [employer] threatened to shut off services in your [...] place to sleep or slept in a longterm (including now)? Patient declined 12/10/2023 Sex and Gender Information Value Date Recorded Sex Assigned at Choose not to disclose 02/2023 8:26 AM EDT Gender Identity Not on file Sexual Orientation Choose not to disclose 2022 8:26 AM EDT documented as of this encounter Miscellaneous Notes * Telephone Encounter - Lola Blevins, [facility] - 04/05/2024 9:28 AM EDT Requested Prescriptions Pending Prescriptions Disp Refills ALPRAZolam (Xanax) 0.25 mg tablet 70 tablet 0 Sig: Take 1 tablet by mouth 3 times daily as needed for Anxiety. Date: 04/05/2024 [email or web address] Agreement signed (at least once): not on file 04/02/2024 5:02 PM 03/09/2024 8:54 AM 02/09/2024 [...] medication, quantity): Per pdmp pt filled on 03/09/24 #70 for a 23 day supply. Last Med Check OV: 12/11/23 AWV Patient needs to be seen on or before (q1y): 12/10/24 Sent to roll panner to schedule appointment: no * Telephone Encounter - Jorden Bauer I - 04/05/2024 9:13 AM EDT Patient has 2 days of medication left, please send in patient's refill as soon as possible. documented in this encounter Plan of Treatment Upcoming Encounters Date Type Department Care Team (Late st Contact Info) Description 12/15/2024 11:30 AM EDT Office [place] [address] Charline Ziegler MD [facility] [place] [address] documented as of this encounter Visit Diagnoses Diagnosis Anxiety Anxiety state, unspecified documented in this encounter Care Teams Steam Tender Relationship Specialty Start Date End Date Reji Adams MD [facility] [place] [address] PCP - General General Internal Medicine 07/13/15 documented as of this encounter
--- OUTSIDE RECORDS SUMMARY | 2024-07-09 11:03 | XMS_ITS | Encounter Summary ---
Author Organization [facility] [place] [address] Care Team Providers Care Ethylbenzene Converter Helper Name Role Phone Reji Newberry MD Primary Care Provider [phone] Reason for Visit * Reason Onset Date Comments Breathing Problem 02/19/2024 Encounter Details Date Type Department Care Team (Late st Contact Info) Description 02/19/2024 Nurse Triage Internal Medicine at [address] [address] Dafne Hickey RN Breathing Problem Social History Tobacco Use Types Packs/Day Years Used Date Smoking Tobacco: Every Day Cigarettes Smokeless Tobacco: Current Chew Comments:3 cans/ week. Alcohol Use Standard Drinks/Week Comments Not Currently 0 (1 standard drink = 0.6 oz pur e alcohol) [facility] Utilities Answer Date Recorded In the past 12 months has [facility] [employer], gas, oil, or water [employer] threatened to shut off services in your [...] encounter Miscellaneous Notes * Telephone Encounter - Dafne Hickey RN - 02/19/2024 2:14 PM EDT Reason for Call: Breathing Problem Brief Health History (Onset, Location, Duration, Characteristics, Aggravating Factors, Relieving Factors/Radiation,Timing, and Severity): Sx onset 7-10 days ago, No sneezing, itchy eyes, running nose, if goes outside it gets worse, better in the AC, causing anxiety to increase, slight cardiac Hx RBBB and PSVT, no pulmonary history, feels like can't get a full deep breath, pt sounds tired on the phone, no chest pain, no recent long distance travel, no recent leg/hip injuries, little edema legs but at baseline, no sudden increase in weight, no hx of clots using flonase, astepro, saline nasal spray(non-steroid nasal spray), Worsening Symptoms: Emphasized symptoms that require emergent/urgent care according to EPIC protocol utilized or other documented decision support tool. Patient able to teach back worsening symptoms and action to take. Patient/Caregiver demonstrates understanding via teach back: Yes Disposition: Go to Office Now * Telephone Encounter - Dafne Hickey RN - 02/19/2024 2:13 PM EDT Copied from [facility] #[id number]. Topic: Triage - Triage >> Feb 19, 2024 2:03 PM Birgit Camacho wrote: Symptom: asthma/breathing issue PCP: REJI NEWBERRY Additional Comments: Patient has had breathing concerns for 10 days roughly and has taken otc medication to no prevail. Please contact patient to discuss. Reason for Disposition ??? Patient wants to be seen Protocols used: Breathing [id number] documented in this encounter Plan of Treatment Upcoming Encounters Date Type Department Care Team (Late st Contact Info) Description 12/15/2024 11:30 AM EDT Office [place] [address] Charline Ziegler MD [facility] [place] [address] documented as of this encounter Visit Diagnoses Not on filedocumented in this encounter Care Teams Ethylbenzene Converter Helper Relationship Specialty Start Date End Date Reji Newberry MD [facility] GENERAL [place] [address] PCP - General General Internal Medicine 07/13/15 documented as of this encounter
--- OUTSIDE RECORDS SUMMARY | 2024-07-09 11:03 | XMS_ITS | Encounter Summary ---
Author Organization [facility] [place] [address] Care Team Providers Care Drug Discovery Informatics Specialist Name Role Phone Reji Adams MD Primary Care Provider [phone] Encounter Details Date Type Department Care Team (Latest Contact Info) Description 05/04/2024 Travel Social History Tobacco Use Types Packs/Day Years Used Date Smoking Tobacco: Never Smokeless Tobacco: Current Chew Comments:3 cans/ week. Alcohol Use Standard Drinks/Week Comments Not Currently 0 (1 standard drink = 0.6 oz pur e alcohol) [facility] Utilities Answer Date Recorded In the past 12 months has [employer], gas, oil, or water [employer] threatened to shut off services in your [...] 11:30 AM EDT Office [place] [address] Charline Ziegler MD [facility] [place] [address] documented as of this encounter Visit Diagnoses Not on filedocumented in this encounter Care Teams Drug Discovery Informatics Specialist Relationship Specialty Start Date End Date Reji Adams MD [facility] [place] [address] PCP - General General Internal Medicine 07/13/15 documented as of this encounter
--- OUTSIDE RECORDS SUMMARY | 2024-07-09 11:03 | XMS_ITS | Encounter Summary ---
Author Organization [facility] [place] [address] Care Team Providers Care Welder Apprentice Arc Name Role Phone Reji Newberry MD Primary Care Provider [phone] Reason for Visit * Reason Onset Date Comments Rash 02/09/2024 Encounter Details Date Type Department Care Team (Late st Contact Info) Description 02/09/2024 Nurse Triage Internal Medicine at [address] [address] Dafne Hickey RN Rash Social History Tobacco Use Types Packs/Day Years Used Date Smoking Tobacco: Never Smokeless Tobacco: Current Chew Comments:3 cans/ week. Alcohol Use Standard Drinks/Week Comments Not Currently 0 (1 standard drink = 0.6 oz pur e alcohol) [facility] Utilities Answer Date Recorded In the past 12 months has [facility] [employer], gas, oil, or water [employer] threatened to shut off services in your [...] Telephone Encounter - Dafne Hickey RN - 02/09/2024 3:31 PM EDT Reason for Call: Rash Brief Health History (Onset, Location, Duration, Characteristics, Aggravating Factors, Relieving Factors/Radiation,Timing, and Severity): onset 5-6 days ago, large bruise on forearm and couple beside it, now does not believe it is a bruise but a rash, darker around perimeter than center, noticed little black dot in the middle, the other bruising has gone away Worsening Symptoms: Emphasized symptoms that require emergent/urgent care according to EPIC protocol utilized or other documented decision support tool. Patient able to teach back worsening symptoms and action to take. Patient/Caregiver demonstrates understanding via teach back: No pt wants lab work ordered, did not want to schedule an appointment Disposition: Discuss with PCP and Callback by Nurse Today * Telephone Encounter - Dafne Hickey RN - 02/09/2024 3:31 PM EDT Copied from [facility] #[id number]. Topic: Triage - Triage >> Feb 09, 2024 3:28 PM Gale Gay wrote: Symptom: concerns of Lyme disease PCP: REJI NEWBERRY Additional Comments: Patient has developed a red ring rash on his arm. Patient is unsure when he was bit. Please call. documented in this encounter Plan of Treatment Upcoming Encounters Date Type Department Care Team (Late st Contact Info) Description 12/15/2024 11:30 AM EDT Office [place] [address] Charline Ziegler MD [facility] [place] [address] documented as of this encounter Visit Diagnoses Not on filedocumented in this encounter Care Teams Welder Apprentice Arc Relationship Specialty Start Date End Date Reji Newberry MD [facility] [place] [address] PCP - General General Internal Medicine 07/13/15 documented as of this encounter
--- OUTSIDE RECORDS SUMMARY | 2024-07-09 11:03 | XMS_ITS | Encounter Summary ---
Author Organization [facility] [place] [address] Care Team Providers Care Rod Mill Tender Name Role Phone Reji Adams MD Primary Care Provider [phone] Encounter Details Date Type Department Care Team (Latest Contact Info) Description 02/25/2024 Travel Social History Tobacco Use Types Packs/Day Years Used Date Smoking Tobacco: Every Day Cigarettes Smokeless Tobacco: Current Chew Comments:3 cans/ week. Alcohol Use Standard Drinks/Week Comments Not Currently 0 (1 standard drink = 0.6 oz pur e alcohol) [facility] Utilities Answer Date Recorded In the past 12 months has [employer] electric, gas, oil, or water [employer] threatened to shut off services in your [...] 11:30 AM EDT Office [place] [address] Charline Ziegler MD [facility] [place] [address] documented as of this encounter Visit Diagnoses Not on filedocumented in this encounter Care Teams Rod Mill Tender Relationship Specialty Start Date End Date Reji Adams MD [facility] [place] [address] PCP - General General Internal Medicine 07/13/15 documented as of this encounter
--- OUTSIDE RECORDS SUMMARY | 2024-07-09 11:03 | XMS_ITS | Encounter Summary ---
Author Organization Formerly [facility] Address [facility] [place] [address] Care Team Providers Care Continuous Mining Machine Coal Miner Name Role Phone Reji Adams MD Primary Care Provider [phone] Reason for Visit * Reason Onset Date Comments Medication Refill 12/16/2023 Encounter Details Date Type Department Care Team (Late st Contact Info) Description 12/16/2023 Refill Internal Medicine at [address] [address] Reji Adams MD [facility] GENERAL INTER[place] [address] Anxiety Social History Tobacco Use Types Packs/Day Years Used Date Smoking Tobacco: Never Smokeless Tobacco: Current Chew Comments:3 cans/ week. Alcohol Use Standard Drinks/Week Comments Not Currently 0 (1 standard drink = 0.6 oz pur e alcohol) [facility] Utilities Answer Date Recorded In the past 12 months has [employer], gas, oil, or water [employer] threatened to shut off services in your [...] Notes * Telephone Encounter - Horace Haddad, [facility] - 12/16/2023 12:28 PM EDT Date: 12/16/2023 Pharmacy: [email or web address] Agreement signed (at least once): 12/16/2023 5:31 AM 11/18/2023 9:55 AM 10/23/2023 10:32 AM 07/28/2023 8:56 AM 05/02/2023 9:37 AM 03/09/2023 6:55 PM Opioid PDMP [place] PDMP Query Date 12/16/2023 11/19/2023 10/24/2023 07/30/2023 05/02/2023 03/10/2023 [place] PDMP Query Date 12/16/2023 11/19/2023 10/24/2023 07/30/2023 05/02/2023 03/10/2023 [place] PDMP Query Date 12/16/2023 11/19/2023 10/24/2023 07/30/2023 05/02/2023 03/10/2023 PDMP (once per year) Any scripts from non- provider: no Last Filled (date, medication, quantity): 11/18 ALPRAZolam (Xanax) 0.25 mg tablet Last Med Check OV: 12/11/23 Patient needs to be seen on or before (q1y): 12/10/24 Sent to shift supervisor melting to schedule appointment: no documented in this encounter Plan of Treatment Upcoming Encounters Date Type Department Care Team (Late st Contact Info) Description 12/15/2024 11:30 AM EDT Office Visit [place] [address] Charline Ziegler MD [facility] [place] [address] documented as of this encounter Visit Diagnoses Diagnosis Anxiety Anxiety state, unspecified documented in this encounter Care Teams Continuous Mining Machine Coal Miner Relationship Specialty Start Date End Date Reji Adams MD [facility] GENERAL [place] [address] PCP - General General Internal Medicine 07/13/15 documented as of this encounter
--- OUTSIDE RECORDS SUMMARY | 2024-07-09 11:03 | XMS_ITS | Encounter Summary ---
Author Organization [facility] [place] [address] Care Team Providers Care Technology Training Associate Name Role Phone Reji Adams MD Primary Care Provider [phone] Encounter Details Date Type Department Care Team (Latest Contact Info) Description 02/15/2024 Travel Social History Tobacco Use Types Packs/Day Years Used Date Smoking Tobacco: Never Smokeless Tobacco: Current Chew Comments:3 cans/ week. Alcohol Use Standard Drinks/Week Comments Not Currently 0 (1 standard drink = 0.6 oz pur e alcohol) [facility] Utilities Answer Date Recorded In the past 12 months has [employer] electric, gas, oil, or water [employer] threatened to shut off services in your [...] place to sleep or slept in a half-way (including now)? Patient declined 12/10/2023 Sex and [...] 11:30 AM EDT Office [place] [address] Charline Ziegler MD [facility] [place] [address] documented as of this encounter Visit Diagnoses Not on filedocumented in this encounter Care Teams Technology Training Associate Relationship Specialty Start Date End Date Reji Adams MD [facility] GENERAL INTER[place] [address] PCP - General General Internal Medicine 07/13/15 documented as of this encounter
--- OUTSIDE RECORDS SUMMARY | 2024-07-09 11:03 | XMS_ITS | Encounter Summary ---
Author Organization [facility] [place] [address] Care Team Providers Care Tar Chaser Name Role Phone Reji Adams MD Primary Care Provider [phone] Encounter Details Date Type Department Care Team (Latest Contact Info) Description 04/14/2024 Travel Social History Tobacco Use Types Packs/Day Years Used Date Smoking Tobacco: Never Smokeless Tobacco: Current Chew Comments:3 cans/ week. Alcohol Use Standard Drinks/Week Comments Not Currently 0 (1 standard drink = 0.6 oz pur e alcohol) [facility] Utilities Answer Date Recorded In the past 12 months has [employer] electric, gas, oil, or water [employer] threatened to shut off services in your [...] 11:30 AM EDT Office [place] [address] Charline Ziegler MD [facility] [place] [address] documented as of this encounter Visit Diagnoses Not on filedocumented in this encounter Care Teams Tar Chaser Relationship Specialty Start Date End Date Reji Adams MD [facility] GENERAL [place] [address] PCP - General General Internal Medicine 07/13/15 documented as of this encounter
--- OUTSIDE RECORDS SUMMARY | 2024-07-09 11:03 | XMS_ITS | Encounter Summary ---
Author Organization [facility] [place] [address] Care Team Providers Care Cnc Specialist Name Role Phone Reji Adams MD Primary Care Provider [phone] Encounter Details Date Type Department Care Team (Latest Contact Info) Description 04/07/2024 Travel Social History Tobacco Use Types Packs/Day Years Used Date Smoking Tobacco: Never Smokeless Tobacco: Current Chew Comments:3 cans/ week. Alcohol Use Standard Drinks/Week Comments Not Currently 0 (1 standard drink = 0.6 oz pur e alcohol) [facility] Utilities Answer Date Recorded In the past 12 months has [employer] electric, gas, oil, or water [employer] threatened to shut off services in your [...] 11:30 AM EDT Office [place] [address] Charline Ziegler MD [facility] [place] [address] documented as of this encounter Visit Diagnoses Not on filedocumented in this encounter Care Teams Cnc Specialist Relationship Specialty Start Date End Date Reji Adams MD [facility] [place] [address] PCP - General General Internal Medicine 07/13/15 documented as of this encounter
--- OUTSIDE RECORDS SUMMARY | 2024-07-09 11:04 | XMS_ITS | Encounter Summary ---
Author Organization [facility] [place] [address] Care Team Providers Care Chief Ophthalmic Technician Name Role Phone Reji Adams MD Primary Care Provider [phone] Reason for Visit * Reason Onset Date Comments Right Leg Pain 11/25/2023 Encounter Details Date Type Department Care Team (Late st Contact Info) Description 11/25/2023 Nurse Triage Internal Medicine at [address] [address] Diego Valentin RN Right Leg Pain Social History Tobacco Use Types Packs/Day Years Used Date Smoking Tobacco: Never Smokeless Tobacco: Current Chew Comments:3 cans/ week. Alcohol Use Standard Drinks/Week Comments Not Currently 0 (1 standard drink = 0.6 oz pur e alcohol) Overall Financial Resource Strain (CARDIA) Answe r Date Recorded How hard is it for you to pa y for the very basics like food, housing, medical care, and heating? Patient declined 07/20/2021 Hunger Vital Sign Answer Date Recorded Within the past 12 months, y ou worried that your food would run out before you got the money to buy more. Patient declined Within the past 12 months, t he food you bought just didn't last and you didn't have money to get more. Patient declined Housing Stability Vital Sign Answer Danny e Recorded In the last 12 months, was t here a time when you were not able to pay the mortgage or rent on time? Patient refused 07/20/20 21 Number of Places Lived in the Last Year Not on f ile 07/20/2021 In the last 12 months, was t here a time when you did not have a steady place to sleep or slept in a assisted (including now)? Patient refused 07/20/2021 Sex and Gender Information Value Date Recorded Sex Assigned at Choose not to disclose 02/2023 8:26 AM EDT Gender Identity Not on file Sexual Orientation Choose not to disclose 2022 8:26 AM EDT documented as of this encounter Miscellaneous Notes * Telephone Encounter - Diego Valentin RN - 11/25/2023 3:11 PM EDT Spoke to patient, verified name and date of . Reason for Call: Right Leg Pain Brief Health History (Onset, Location, Duration, Characteristics, Aggravating Factors, Relieving Factors/Radiation,Timing, and Severity): Patient complains severe right leg pain in thigh that started yesterday AM Lying down makes the pain worse Pain is more tolerable when walking and bearing weight Reports numbness at top of thigh Seen in ED yesterday for symptoms, called to scheduled ED f/u Prescribed prednisone, has not helped so far Also advised to take 3000mg of tylenol/day and use ice Xray of pelvis and femur completed Hx of compression fx and back pain Denies chest pain, breathing difficulty, swelling, rash, fever, weakness Worsening Symptoms: Emphasized symptoms that require emergent/urgent care according to EPIC protocol utilized or other documented decision support tool. Patient able to teach back worsening symptoms and action to take. Patient/Caregiver demonstrates understanding via teach back: Yes Disposition: Go to Office Now patient scheduled for first avail appt at [place] on 11/27/23 @ [address] Lawrence, patient declined sooner scheduling at [facility]. Diego Valentin RN [address] Reason for Disposition SEVERE pain (e.g., excruciating, unable to do any normal activities) Protocols used: Leg Pain-A-[place] documented in this encounter Plan of Treatment Upcoming Encounters Date Type Department Care Team (Late st Contact Info) Description 12/15/2024 11:30 AM EDT Office [place] [address] Charline Ziegler MD [facility] [place] [address] documented as of this encounter Visit Diagnoses Not on filedocumented in this encounter Care Teams Chief Ophthalmic Technician Relationship Specialty Start Date End Date eRji Adams MD [facility] [place] [address] PCP - General General Internal Medicine 07/13/15 documented as of this encounter
--- OUTSIDE RECORDS SUMMARY | 2024-07-09 11:04 | XMS_ITS | Encounter Summary ---
Author Organization [facility] [place] [address] Care Team Providers Care Outpatient Coordinator Name Role Phone Reji Adams MD Primary Care Provider [phone] Encounter Details Date Type Department Care Team (Latest Contact Info) Description 07/15/2023 Travel Social History Tobacco Use Types Packs/Day [...] slept in a half-way (including now)? Patient refused 07/20/2021 Sex and [...] 11:30 AM EDT Office [place] [address] Charline Ziegler MD [facility] [place] [address] documented as of this encounter Visit Diagnoses Not on filedocumented in this encounter Care Teams Outpatient Coordinator Relationship Specialty Start Date End Date Reji Adams MD [facility] GENERAL [place] [address] PCP - General General Internal Medicine 07/13/15 documented as of this encounter
--- OUTSIDE RECORDS SUMMARY | 2024-07-09 11:04 | XMS_ITS | Encounter Summary ---
Author Organization [facility] Address [facility] [place] [address] Care Team Providers Care Marbleizing Machine Tender Name Role Phone Reji Adams MD Primary Care Provider [phone] Reason for Visit * Reason Onset Date Comments Medication Refill 06/30/2023 Encounter Details Date Type Department Care Team (Late st Contact Info) Description 06/30/2023 Refill Internal Medicine at [address] [address] Reji Adams MD [facility] GENERAL [place] [address] Anxiety Social History Tobacco Use Types Packs/Day [...] slept in a fpc (including now)? Patient refused 07/20/2021 Sex and Gender Information Value Date Recorded Sex Assigned at Choose not to disclose 02/2023 8:26 AM EDT Gender Identity Not on file Sexual Orientation Choose not to disclose 2022 8:26 AM EDT documented as of this encounter Miscellaneous Notes * Telephone Encounter - Lola Blevins CCMA - 06/30/2023 2:50 PM EST Prescription Renewal Request Name: Ken Mckeon : 1945 Prescription(s) Requested: Requested Prescriptions Pending Prescriptions Disp Refills ALPRAZolam (Xanax) 0.25 mg tablet 70 tablet 0 Sig: Take 1 tablet by mouth 3 times daily as needed for Anxiety. Date of Encounter last in This Dept (If need an appointment send to secretaries to schedule): 04/22/23 Next Encounter in This Dept: Visit date not found Date of Last Refill (for each medication): 06/03/23, per outside reconciliation page pt filled this on 06/03/23 for 24 day supply Medication category requirements (labs etc): 05/02/2023 03/09/2023 Opioid PDMP [place] PDMP Query Date 05/02/2023 03/10/2023 [place] PDMP Query Date 05/02/2023 03/10/2023 [place] PDMP Query Date 05/02/2023 03/10/2023 Status of request: Pended Allergies Allergen Reactions Penicillins Anaphylaxis Tongue swelling Betamethasone hiccups after injection Dexamethasone Hiccups after injection Triamcinolone Acetonide Hiccups CANDI Lowery 06/30/23 2:50 PM documented in this encounter Plan of Treatment Upcoming Encounters Date Type Department Care Team (Late st Contact Info) Description 12/15/2024 11:30 AM EDT Office Visit [place] [address] Charline Ziegler MD [facility] [place] [address] documented as of this encounter Visit Diagnoses Diagnosis Anxiety Anxiety state, unspecified documented in this encounter Care Teams Marbleizing Machine Tender Relationship Specialty Start Date End Date Reji Adams MD [facility] GENER[place] [address] PCP - General General Internal Medicine 07/13/15 documented as of this encounter
--- OUTSIDE RECORDS SUMMARY | 2024-07-09 11:04 | XMS_ITS | Encounter Summary ---
Author Organization [facility] Address [facility] [place] [address] Care Team Providers Care Typing Bookkeeper Name Role Phone Reji Adams MD Primary Care Provider [phone] Reason for Visit * Consultation (Routine) - Closed Specialty Diagnoses / Procedures Referred By Contac t Referred To Contact Cardiology Diagnoses RBBB Palpitations with PAC's Known RBBB. Previous Zio patch last year. No other symptoms. PMH recurrent metastatic prostate cancer, HLP, and PSVT, FHX premature CAD. Formerly followed @[facility] . Hari Yu MD [facility] [place] [address] [facility] [address] [place] [id number] Referral ID Status Reason Start Date Expiration Date V isits Requested Visits Authorized [id number] Closed Consult, Test & Treat 06/27/2023 06/26/2024 1 1 Encounter Details Date Type Department Care Team (Late st Contact Info) Description 09/23/2023 2:00 PM EST Office Visit Cardiology at [address] [address] Alfredo Henry MD [facility] [address] Ashish Mchugh MD [facility] [place] [address] Palpitations Social History Tobacco Use Types Packs/Day [...] slept in a custodial (including now)? Patient refused 07/20/2021 Sex and Gender Information Value Date Recorded Sex Assigned at Choose not to disclose 02/2023 8:26 AM EDT Gender Identity Not on file Sexual Orientation Choose not to disclose 2022 8:26 AM EDT documented as of this encounter Last Filed Vital Signs Vital Sign Reading Time Taken Comments Blood Pressure 123/70 09/23/2023 2:00 PM EST Pulse 70 09/23/2023 2:00 PM EST Temperature - - Respiratory Rate - - Oxygen Saturation 98% 09/23/2023 2:00 PM EST Inhaled Oxygen Concentration - - Weight 91.2 kg (201 lb) 09/23/2023 2:00 PM EST Height 179.1 cm (5' 10.5) 09/23/2023 2:00 PM ES T Body Mass Index 28.43 09/23/2023 2:00 PM EST documented in this encounter Progress Notes * Ashish Mchugh MD - 09/23/2023 2:00 PM EST Images from the original note were not included. [facility] [place] [address] Subjective: Patient ID: Ken Mckeon is a 77 y.o. adult. 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) PSVT (paroxysmal supraventricular tachycardia) RBBB Prostate cancer metastatic to intrapelvic lymph node S/P rotator cuff repair Trigger finger, left ring finger Chronic left shoulder pain Asymmetrical sensorineural hearing loss Right arm numbness Peripheral neuropathy Diagnosis in progress, decrease in sharp sensation, and vibratory sensation in b/l feet Urinary urgency W/ hesitency, given duration, likely BPH Cervical stenosis of spinal canal Depression Cervical radiculopathy Neck pain Anxiety OA (osteoarthritis) of knee right Cataract extraction status of left eye Status post total knee replacement TKR Right knee in 2007 HPI 77 yoM w/ PMHx of HLD, PSVT, PAC w/ known RBBB, prostate Ca sp resection, chemorads who was referred to cardiology clinic for palpitations. # Palpitations - going on for years - has had prolonged issue with anxiety - believes that the anxiety brings on the palpitations - no chest pain, nausea/emesis, syncope, diaphoresis, shortness of breath - infrequent, a few times a month - had a ziopatch done last year and was told it was negative for his previous take away worker (1.8% PAC burden, 11 patient triggered events, 5 related to PACs, 1 to SVT, but otherwise non related to arrhythmia) The pt denies headaches, dizziness, nausea, vomiting, changes in vision, chest pain/pressure, diaphoresis, sob, orthopnea, MARTIN, changes in micturition/defecation, or weight gain. Exercise - walking; tough with knee Smoking - never; chew ETOH - denies - no Family: brothers: cerebral aneurysm, heart attack Review of Systems 09/22/2023 3:21 PM CardioVascular Pre Appointment Symptom Review Angina (chest discomfort) Frequency: None Shortness of breath: Only with moderate or strenous activity Palpitations (skipped beats): Yes Leg swelling: Yes Dizziness/light headedness: Yes Loss of consciousness: No Difficulty lying flat (because of breathing): No Chills: No Fatigue: Yes Fever: No Unintended weight change: No Nosebleeds: No Difficulty swallowing: No Visual disturbances: No Frequent cough: No Wheezing: No Snoring: No Abdominal pain: No Diarrhea: No Blood in bowel movement: No Black, tarry bowel movement: No Nausea/vomiting: No Heat/cold intolerance: Yes Problems urinating: No Joint pains: Yes Muscle pain: Yes Rash: No Weakness/numbness: Yes Speech problems: No Easy bruising/bleeding: Yes Depression: No Anxiety: Yes Poor sleep: No Family History Problem Relation Age of Onset Cancer Mother bone Diabetes Father Cancer Father testicular Social History Social History Narrative Not on file Social History Tobacco Use Smoking status: Never Smokeless tobacco: Current Types: Chew Tobacco comments: 3 cans/ week. Substance Use Topics Alcohol use: Not Currently Outpatient Medications Marked as Taking for the 09/23/23 encounter (Office Visit) with Alfredo Henry MD Medication Sig Dispense Refill celecoxib (CeleBREX) 100 mg capsule Take 100 mg by mouth daily. ALPRAZolam (Xanax) 0.25 mg tablet Take 1 tablet by mouth 3 times daily as needed for Anxiety. 70 tablet 0 pravastatin (Pravachol) 20 mg tablet Take 1 tablet by mouth once daily 90 tablet 3 BORON ORAL Take 2 [...] tablet Take 1 tablet by mouth daily. Objective: BP 123/70 Pulse 70 Ht 179.1 cm (5' 10.5) Wt 91.2 kg (201 lb) SpO2 98% BMI 28.43 kg/m?? General - No acute distress. Well-groomed/nourished. Speech is normal HEENT - EOMI. No scleral icterus. Noninjected. Moist membranes. Respiratory: Clear to auscultation bilaterally. Good effort/excursion. Cardiac - RRR, normal S1/S2, no audible murmur, gallop or rubs. Bilateral non- pitting AIDEE Abdomen - Soft, nontender/nondistended Extremities - Warm. No clubbing or cyanosis. Radial Pulses: 2+ B/L Neuro - Limited exam. No deficits. CBC: Recent Labs 07/15/23 1044 06/27/23 1310 04/09/23 0933 WBC 4.0 5.5 4.4 HGB 13.8 14.6 13.4* PLATELET 166 169 149 Chemistry: Recent Labs 07/15/23 1044 06/27/23 1310 06/11/23 1207 NA 139 139 137 K 4.2 Not Perf 4.4 CL 104 103 102 CO2 28 26 27 BUN 06 15 19 CREATININE 0.97 1.06 0.95 GLUCOSE 84 Not Perf 93 Recent Labs 07/15/23 1044 06/27/23 1310 06/11/23 1207 CALCIUM 9.6 9.4 9.4 LFT's: Recent Labs 07/15/23 1044 04/09/23 0933 01/22/23 1020 BILITOT 0.7 0.7 0.7 ALBUMIN 4.3 4.3 4.6 ALKPHOS 68 65 70 ALT 15 15 15 AST 14 20 20 Coags: No results for input(s): PT, INR, PTT, FIBRINOGEN, DDIMER in the last 168 hours. Invalid input(s): THROMBIN TIME Cardiac enzymes: No results for input(s): TROPONINT, CK in the last 7068 hours. Endocrine: Recent Labs 06/27/23 1310 12/16/22 0749 TSH 1.49 -- CORTISOL -- 8.6 Heme: No results for input(s): LDH, HAPTOGLOBIN, URICACID in the last 168 hours. Lipids: Lipid Panel Lab Results Component Value Date CHLPL 170 11/20/2022 HDL 84 11/20/2022 CHOLHDL 2.0 11/20/2022 TRIG 80 11/20/2022 LDLCHOL 70 11/20/2022 ECG: NSR, RBBB, LAFB Echocardiogram: LVEF 60%, ascending aorta 3.5 cm Stress test: 02/2016: No fixed or reversible perfusion defects are present. Assessment and Plan: Palpitations - likely related to anxiety - labs are WNL - ziopatch reassuring - no indication for pharmacologic treatment (bblocker) at the time - treatment of anxiety per PCP Ashish Mchugh MD Lead Electrical Engineer * Alfredo Henry MD - 09/23/2023 2:00 PM EST Cardiology Attending Addendum I have personally reviewed the relevant medical data, interviewed and examined the patient and agree with Dr. Mchugh's note as below. documented in this encounter Miscellaneous Notes * Assessment & Plan Note - Ashish Mchugh MD - 09/23/2023 2:51 PM ESTAssociated Problem(s): Palpitations - likely related to anxiety - labs are WNL - ziopatch reassuring - no indication for pharmacologic treatment (bblocker) at the time - treatment of anxiety per PCP documented in this encounter Plan of Treatment Upcoming Encounters Date Type Department Care Team (Late st Contact Info) Description 12/15/2024 11:30 AM EDT Office [place] [address] Charline Ziegler MD [facility] [place] [address] documented as of this encounter Visit Diagnoses Diagnosis Palpitations documented in this encounter Care Teams Typing Bookkeeper Relationship Specialty Start Date End Date Reji Adams MD [facility] [place] [address] PCP - General General Internal Medicine 07/13/15 documented as of this encounter
--- OUTSIDE RECORDS SUMMARY | 2024-07-09 11:04 | XMS_ITS | Encounter Summary ---
Author Organization [facility] Address [facility] [place] [address] Care Team Providers Care Lead Advisor Name Role Phone Reji Adams MD Primary Care Provider [phone] Reason for Visit * Reason Comments Medication Refill Encounter Details Date Type Department Care Team (Late st Contact Info) Description 07/27/2023 Refill Internal Medicine at [address] [address] Reji Adams MD [facility] [place] [address] Social History Tobacco Use Types Packs/Day Years [...] slept in a penitentiary (including now)? Patient refused 07/20/2021 Sex and Gender Information Value Date Recorded Sex Assigned at Choose not to disclose 02/2023 8:26 AM EDT Gender Identity Not on file Sexual Orientation Choose not to disclose 2022 8:26 AM EDT documented as of this encounter Miscellaneous Notes * Telephone Encounter - Jacki Wood MA - 07/29/2023 11:49 AM EST Prescription Renewal Request Name: Kne Mckeon : 1945 Prescription(s) Requested: Requested Prescriptions Pending Prescriptions Disp Refills pravastatin (Pravachol) 20 mg tablet [Pharmacy Med Name: Pravastatin Sodium 20 MG Oral Tablet] 90 tablet 3 Sig: Take 1 tablet by mouth once daily Date of Encounter last in This Dept (If need an appointment send to secretaries to schedule): 04/22/23 Bryan Next Encounter in This Dept: Visit date not found Date of Last Refill (for each medication): 04/28/23 Medication category requirements (labs etc): n/a Status of request: Pended Allergies Allergen Reactions Penicillins Anaphylaxis Tongue swelling Betamethasone hiccups after injection Dexamethasone Hiccups after injection Triamcinolone Acetonide Hiccups Jacki Wood MA 07/29/23 11:49 AM documented in this encounter Plan of Treatment Upcoming Encounters Date Type Department Care Team (Late st Contact Info) Description 12/15/2024 11:30 AM EDT Office [place] [address] Charline Ziegler MD [facility] [place] [address] documented as of this encounter Visit Diagnoses Not on filedocumented in this encounter Care Teams Lead Advisor Relationship Specialty Start Date End Date Reji Adams MD [facility] [place] [address] PCP - General General Internal Medicine 07/13/15 documented as of this encounter
--- OUTSIDE RECORDS SUMMARY | 2024-07-09 11:04 | XMS_ITS | Encounter Summary ---
Author Organization [facility] [place] [address] Care Team Providers Care Hvac/R Service Technician Name Role Phone Reji Adams MD Primary Care Provider [phone] Encounter Details Date Type Department Care Team (Late st Contact Info) Description 07/01/2023 Telephone [facility] [place] [phone] Tressa Lay Social History Tobacco Use Types Packs/Day Years [...] in a group home (including now)? Patient refused 07/20/2021 Sex and Gender Information Value Date Recorded Sex Assigned at Choose not to disclose 02/2023 8:26 AM EDT Gender Identity Not on file Sexual Orientation Choose not to disclose 2022 8:26 AM EDT documented as of this encounter Miscellaneous Notes * Telephone Encounter - Tressa Lay - 07/01/2023 11:56 AM EST LVM 07/01/23 in regards to scheduling appointments with Andrea Ortega PT. Please call [phone] documented in this encounter Plan of Treatment Upcoming Encounters Date Type Department Care Team (Late st Contact Info) Description 12/15/2024 11:30 AM EDT Office [place] [address] Charline Ziegler MD [facility] [place] [address] documented as of this encounter Visit Diagnoses Not on filedocumented in this encounter Care Teams Hvac/R Service Technician Relationship Specialty Start Date End Date Reji Adams MD [facility] [place] [address] PCP - General General Internal Medicine 07/13/15 documented as of this encounter
--- OUTSIDE RECORDS SUMMARY | 2024-07-09 11:04 | XMS_ITS | Encounter Summary ---
Author Organization [facility] Address [facility] [place] [address] Care Team Providers Care Lay Brother Name Role Phone Reji Adams MD Primary Care Provider [phone] Reason for Visit * Reason Comments Fatigue Loss of appetite, co nstipation, does not feel good Encounter Details Date Type Department Care Team (Late st Contact Info) Description 08/21/2023 3:40 PM EST Office Visit Internal Medicine at [address] [address] Reji Adams MD [facility] [place] [address] Anorexia; Constipation, unspecified constipation type Social History Tobacco Use Types Packs/Day [...] to sleep or slept in a senior care (including now)? Patient refused 07/20/2021 Sex and Gender Information Value Date Recorded Sex Assigned at Choose not to disclose 02/2023 8:26 AM EDT Gender Identity Not on file Sexual Orientation Choose not to disclose 2022 8:26 AM EDT documented as of this encounter Last Filed Vital Signs Vital Sign Reading Time Taken Comments Blood Pressure 114/71 08/21/2023 3:46 PM EST Pulse 66 08/21/2023 3:46 PM EST Temperature 36.6 ??C (97.8 ??F) 08/21/2023 3 :46 PM EST Respiratory Rate - - Oxygen Saturation 100% 08/21/2023 3:4 6 PM EST Inhaled Oxygen Concentration - - Weight 89.4 kg (197 lb) 08/21/2023 3:46 PM EST reported from home scale Height 176.8 cm (5' 9.61) 08/21/2023 3 :46 PM EST reported Body Mass Index 28.59 08/21/2023 3:46 PM EST documented in this encounter Progress Notes * Reji Adams MD - 08/21/2023 3:40 PM EST ESTABLISHED PATIENT VISIT I. HISTORY a. Reason(s) for Visit: Kenlenin Mckeon 77 y.o. adult who presents today due to complaint(s) of: Chief Complaint Patient presents with Fatigue Loss of appetite, constipation, does not feel good b. History of Present Illness:[] Pt presenting with loss of appetite. CT w/o contrast for R sided abd pain on 08/15/2023 was unremarkable. States that having fatigue, not having much of an appetite. c. Review of Systems: See HPI for pertinent ROS d. PMH Patient Active Problem List Diagnosis Age-related osteoporosis with current pathological fracture History [...] knee replacement TKR Right knee in 2007 Soc: Social History Tobacco Use Smoking status: Never Smokeless tobacco: Current Types: Chew Tobacco comments: 3 cans/ week. Substance Use Topics Alcohol use: Not Currently II. PHYSICAL EXAM: BP 114/71 (BP Location (NBP): Left arm, Patient Position: Sitting, BP Cuff Sizes: Large Adult (32-43 cm)) Pulse 66 Temp 36.6 ??C (97.8 ??F) (Temporal) Ht 176.8 cm (5' 9.61) Comment: reported Wt 89.4 kg (197 lb) Comment: reported from home scale SpO2 100% BMI 28.59 kg/m?? General - No acute distress, conversing without difficulty. ENT - oropharynx without lesions. Extremities - No clubbing, cyanosis or edema. III. ASSESSMENT/PLAN:Ken Mckeon 77 y.o. adult presenting with anorexia. Ken Escobedo was seen today for fatigue. Diagnoses and all orders for this visit: Anorexia - Unclear etiology with fairly normal recent workup - Discussed mirtazapine for depression and appetite and pt wasn't to think about it. Constipation -daily miralax F/u prn Meds reconciled documented in this encounter Plan of Treatment Upcoming Encounters Date Type Department Care Team (Late st Contact Info) Description 12/15/2024 11:30 AM EDT Office Visit [place] [address] Charline Ziegler MD [facility] [place] [address] documented as of this encounter Visit Diagnoses Diagnosis Anorexia Constipation, unspecified constipation type documented in this encounter Care Teams Lay Brother Relationship Specialty Start Date End Date Reji Adams MD [facility] [place] [address] PCP - General General Internal Medicine 07/13/15 documented as of this encounter
--- OUTSIDE RECORDS SUMMARY | 2024-07-09 11:04 | XMS_ITS | Encounter Summary ---
Author Organization [facility] Address [facility] [place] [address] Care Team Providers Care Well Surveying Engineer Name Role Phone Reji Adams MD Primary Care Provider [phone] Reason for Referral * Diagnostic Test (Routine) - Closed Specialty Diagnoses / Procedures Referred By Contac t Referred To Contact Radiology Diagnoses Knee tenderness Joint swelling Pain Procedures MRI Knee wo Contrast Left (Generic) Reji Adams MD [facility] [place] [address] [place] [address] Referral ID Status Reason Start Date Expiration Date V isits Requested Visits Authorized [id number] Closed Specialty Service Requested 06/27/2023 12/26/2024 1 1 Reason for Visit * Diagnostic Test (Routine) - Closed Specialty Diagnoses / Procedures Referred By Contac t Referred To Contact Radiology Diagnoses Knee tenderness Joint swelling Pain Procedures MRI Knee wo Contrast Left (Generic) Reji Adams MD [facility] [place] [address] [place] [address] Referral ID Status Reason Start Date Expiration Date V isits Requested Visits Authorized [id number] Closed Specialty Service Requested 06/27/2023 12/26/2024 1 1 Encounter Details Date Type Department Care Team (Latest Contact Info) Description 07/25/2023 10:27 AM EST - 07/25/2023 11:59 PM EST Hospital Encounter MRI at [facility] [place] [address] Reji Adams MD [facility] GENER[facility] [place] [address] Knee tenderness; Joint swelling; Pain Discharge Disposition: Home Social History Tobacco Use [...] slept in a halfway (including now)? Patient refused 07/20/2021 Sex and Gender Information Value Date Recorded Sex Assigned at Choose not to disclose 02/2023 8:26 AM EDT Gender Identity Not on file Sexual Orientation Choose not to disclose 2022 8:26 AM EDT documented as of this encounter Medications at Time of Discharge Medication Sig Dispensed Refills Start Date End Date BORON ORAL Take 2 mg by mouth [...] tablet Take 1 tablet by mouth daily. [id number] liver-vit A-D3 (cod liver oiL) 240-1,000 mg Capsule Take by mouth. 12/11/2023 ALPRAZolam (Xanax) 0.25 mg tabletIndications:Anxie ty Take 1 tablet by mouth 3 times daily as needed for Anxiety. 70 tablet 06/30/2023 07/28/2023 pravastatin (Pravachol) 20 mg tablet Take 1 tablet by mouth once daily 90 tablet 04/28/2023 07/29/2023 triamcinolone acetonide (NASACORT ALLERGY NASL) by Nasal route daily. PRN 12/11/2023 documented as of this encounter Plan of Treatment Upcoming Encounters Date Type Department Care Team (Late st Contact Info) Description 12/15/2024 11:30 AM EDT Office [place] [address] Charline Ziegler MD [facility] [place] [address] documented as of this encounter Procedures Procedure Name Priority Date/Time Associated Diagnosis Comments MRI KNEE LEFT WO CONTRAST Routine 07/25/2023 11:39 AM EST Knee tenderness Joint swelling Pain documented in this encounter Results * MRI Knee wo Contrast Left (Generic) (07/25/2023 11:39 AM EST) Anatomical Region Laterality Modality Knee Left Magnetic Resonan ce Impressions 07/25/2023 12:54 PM EST 1. ??Progression of knee osteoarthropathy, particularly in the patellofemoral compartment. 2. ??No meniscal or ligament tear. Thank you for letting us participate in the care of this patient. ??If you are a health care provider and have any questions regarding this report, please contact the number below. ??For patients who have questions please contact the health career development coordinator that requested your imaging first. ? Electronically signed by: Loreta Cornelius MD, [facility] ([phone]), at 07/25/2023 12:54 PM Narrative 07/25/2023 12:54 PM EST EXAMINATION: MRI KNEE WO CONTRAST LEFT (GENERIC) CLINICAL HISTORY: patient has tenderness, joint effusion, swelling and pain with motion on physical examination. ?? (as entered by ordering provider in the order requisition) COMPARISON: MR the left knee 08/11/2017. TECHNIQUE: Routine noncontrast MRI of the Left knee was performed. ??Sequences include sagittal PD with and without fat saturation, coronal PD with and without fat saturation, axial T2 with fat saturation, and axial T1. FINDINGS: Menisci: The medial meniscus is intact. The lateral meniscus is intact. Ligaments and tendons: The anterior cruciate ligament is intact. The posterior cruciate ligament is intact. The medial collateral ligament complex is intact. The fibular collateral ligament, iliotibial band, biceps femoris tendon, and popliteus tendon is intact. Extensor mechanism: The quadriceps and patellar tendons are intact. Similar prominent quadriceps enthesophyte. The medial and lateral retinacula are intact. Normal signal of Hoffa's fat pad. Bones, cartilage and joint: Small knee joint effusion with synovitis. No acute fracture. No bone marrow replacing lesion. Progression of diffuse full-thickness cartilage loss of the patella. Similar degree of full-thickness cartilage loss of the medial trochlea. Unchanged deep fissuring of the medial tibial plateau. There is heterogeneous signal of the cartilage of the medial femoral condyle. Similar appearance of a full-thickness chondral ulceration/defect of the lateral tibial plateau (series 4, image 31 and series 6, image 22). Cartilage of the tibial-fibular joint is intact. Muscles: Normal bulk and signal of the visualized muscles. Neurovascular: Normal signal and caliber of the tibial and common peroneal nerves. Other Extra-articular: Tiny Lassiter's cyst. No fluid distention of the pes anserine bursa. Procedure Note Loreta Cornelius MD - 07/25/2023 EXAMINATION: MRI KNEE WO CONTRAST LEFT (GENERIC) CLINICAL HISTORY: patient has tenderness, joint effusion, swelling andpain with motion on physical examination. (as entered by orderingprovider in the order requisition) COMPARISON: MR the left knee 08/11/2017. TECHNIQUE: Routine noncontrast MRI of the Left knee was performed.Sequences include sagittal PD with and without fat saturation, coronal PD with andwithout fat saturation, axial T2 with fat saturation, and axial T1. FINDINGS: Menisci: The medial meniscus is intact. The lateral meniscus is intact. Ligaments and tendons: The anterior cruciate ligament is intact. The posterior cruciate ligament is intact. The medial collateral ligament complex is intact. The fibular collateral ligament, iliotibial band, biceps femoris tendon,and popliteus tendon is intact. Extensor mechanism: The quadriceps and patellar tendons are intact.Similar prominent quadriceps enthesophyte. The medial and lateral retinacula areintact. Normal signal of Hoffa's fat pad. Bones, cartilage and joint: Small knee joint effusion with synovitis. Noacute fracture. No bone marrow replacing lesion. Progression of diffuse full-thickness cartilage loss of the patella.Similar degree of full-thickness cartilage loss of the medial trochlea. Unchanged deep fissuring of the medial tibial plateau. There isheterogeneous signal of the cartilage of the medial femoral condyle. Similar appearance of a full-thickness chondral ulceration/defect of thelateral tibial plateau (series 4, image 31 and series 6, image 22). Cartilage of the tibial-fibular joint is intact. Muscles: Normal bulk and signal of the visualized muscles. Neurovascular: Normal signal and caliber of the tibial and commonperoneal nerves. Other Extra-articular: Tiny Lassiter's cyst. No fluid distention of the pes anserine bursa. IMPRESSION 1. Progression of knee osteoarthropathy, particularly in thepatellofemoral compartment. 2. No meniscal or ligament tear. Thank you for letting us participate in the care of this patient. If youare a health care provider and have any questions regarding this report,please contact the number below. For patients who have questions please contactthe health career development coordinator that requested your imaging first. Reji Adams MD IMG MRI ORDERABLES documented in this encounter Visit Diagnoses Diagnosis Knee tenderness Unspecified disorder of lower leg joint Joint swelling Effusion of joint, site unspecified Pain Generalized pain documented in this encounter Care Teams Well Surveying Engineer Relationship Specialty Start Date End Date Reji Adams MD [facility] [place] [address] PCP - General General Internal Medicine 07/13/15 documented as of this encounter
--- OUTSIDE RECORDS SUMMARY | 2024-07-09 11:04 | XMS_ITS | Encounter Summary ---
Author Organization [facility] [place] [address] Care Team Providers Care Used Equipment Sales Representative Name Role Phone Reji Adams MD Primary Care Provider [phone] Encounter Details Date Type Department Care Team (Latest Contact Info) Description 08/21/2023 Travel Social History Tobacco Use Types Packs/Day [...] 11:30 AM EDT Office [place] [address] Charline Ziegler MD [facility] [place] [address] documented as of this encounter Visit Diagnoses Not on filedocumented in this encounter Care Teams Used Equipment Sales Representative Relationship Specialty Start Date End Date Reji Adasm MD [facility] [place] [address] PCP - General General Internal Medicine 07/13/15 documented as of this encounter
--- OUTSIDE RECORDS SUMMARY | 2024-07-09 11:04 | XMS_ITS | Encounter Summary ---
Author Organization [facility] Address [facility] [address] Care Team Providers Care Terra Cotta Mold Maker Name Role Phone Reji Adams MD Primary Care Provider [phone] Encounter Details Date Type Department Care Team (Latest Contact Info) Description 08/26/2023 11:00 AM EST TH Visit (TeleHealth) [place] [address] Charline Ziegler MD [facility] [place] [address] RUQ pain (Primary Dx); Chronic constipation Social History Tobacco Use Types Packs/Day Years [...] in a nursing home (including now)? Patient refused 07/20/2021 Sex and Gender Information Value Date Recorded Sex Assigned at Choose not to disclose 02/2023 8:26 AM EDT Gender Identity Not on file Sexual Orientation Choose not to disclose 2022 8:26 AM EDT documented as of this encounter Progress Notes * Charline Ziegler MD - 08/26/2023 11:00 AM EST [facility] TELEMEDICINE PRO[facility] Chief Complaint: Ken Mckeon is a 77 y.o. here for follow-up of constipation. Detailed history on 01/31/20: 77 y.o. adult with history of cervical spine surgery, OA, insomnia, anxiety, peripheral neuropathy, prostate cancer s/p prostatectomy in 2019 and chronic constipation. He is now s/p bilat hip replacement, s/p sacroplasty in 04/2022, and s/p XRT in spring 2021 for prostate cancer He complains of several years of up to 5 days without a BM, then numerous soft, small nonbloody BMs(Ponce 3-5), with frequent straining with failed attempts at defecation regularly. He denies sensation of incomplete evacuation, prolonged toileting, or digitation. He endorses intermittent oropharyngeal dysphagia feeling like forgetting how to swallow with spit/saliva, but denies dysphagia to solids or liquids. Denies globus sensation. He endorses infrequent bothersome heartburn, usually when he takes Cialis. Denies fevers, chills, abdominal pain, bloating, nausea, vomiting, odynophagia, regurgitation Prior regimen Senna as needed Mag citrate as needed Dulcolax as needed Up to miralax 2 caps twice daily for <1 week (bloating, ineffective) Prior enemas x2 and suppositories Did not try low FODMAP Interval history: -ED visit to OSH 07/2023 for sudden right-sided abdominal pain (RUQ, non- radiating), not associatedwith eating. CT non-con was normal without calcified stones, per patient no stool burden seen ([facility] He did feel better after 20 minutes of IVF lying flat. He was subsequently discharged. He followed up with PCP after. Pain has not recurred since. He denies sick contacts, recent travel, or recent antibiotics. -Since that visit has focused on drinking more water, was not sure if he was dehydrated on the day -No F/chills/N/V. Taking Miralax daily- having 1 BM daily, initially small shards but now small formed BM. No blood or mucous. No fecal incontinence. Tries to have balanced diet with protein, vegetables but feels he could do better. He had a broken tooth that makes it difficult to chew. Unfortunately fixing this right now is cost-prohibitive. Mainly eating soft foods only. He had a colonoscopy in 06/2022 and felt better for a short period after that Current regimen miralax daily Review of systems: 14-point review of systems reviewed and negative except as above. Medications: Outpatient Medications Prior to Visit Medication Sig Dispense Refill ALPRAZolam (Xanax) 0.25 mg tablet Take 1 tablet by mouth 3 times daily as needed for Anxiety. 70 tablet 0 pravastatin (Pravachol) 20 mg tablet Take 1 tablet by mouth once daily 90 tablet 3 [id number] liver-vit A-D3 (cod liver oiL) 240-1,000 mg Capsule Take by mouth. BORON ORAL Take 2 mg by mouth daily. tadalafiL (Cialis) 5 mg tablet Take 5 mg by mouth as needed for Erectile Dysfunction. triamcinolone acetonide (NASACORT ALLERGY NASL) by Nasal route daily. PRN polyethylene glycoL (Miralax) 17 gram/dose Powder Take 17 g by mouth daily. acetaminophen (TYLENOL) 650 mg Tablet Sustained Release Take 650 mg by mouth every 8 hours as needed for Pain. Do not exceed 6 tabs in 24 hours multivitamin (THERAGRAN) tablet Take 1 tablet by mouth daily. No facility-administered medications prior [...] interface; Ligate/StripLong Saph Vein Belw Sep-Fem Junc (03367) (06/02/2012); Phleb Veins - Extrem - To 20 (70529) (06/02/2012); Colonoscopy, Diagnostic (84802) (09/07/2013); Upper Gi Endoscopy, Biopsy (56047) (N/A, 09/02/2017); US Guided Biopsy Prostate ([place] ONLY) (02/08/2019); Colonoscopy, Remv Rosey, Snare (42140) (N/A, 01/25/2020); Upper Gi Endoscopy, Biopsy ([id number]) (N/A, 01/25/2020); Endoscopic Us Exam, Esoph ([id number]) (N/A, 03/14/2020); Upper Gi Endoscopy, Biopsy ([id number]) (N/A, 03/14/2020); CT Guided Sacroplasty/Vertebroplasty (05/22/2022); and Colonoscopy, Diagnostic (81783) (N/A, 07/26/2022). Family History: family history includes [...] reports that he does not use drugs. Telephone visit Questionnaire: 08/06/2022 9:37 AM Q-[facility] Healthy Day Score 15 Laboratory studies, imaging, and procedures (in summary of my review of prior records): Colonoscopy 07/26/22 - normal with diverticulosis Assessment/Plan: Mr. Mckeon is a 77 y.o. patient with #acute RUQ pain- now relieved and back to baseline. Differential includes worsening constipation, gastroenteritis, biliary colic, MSK pain. I will obtain RUQUS to evaluate for gallstones- no calcified stones seen. Will address constipation management below. # chronic constipation - more regular on Miralax daily which is a large improvement for Gregg. Reviewed bulking agents- did not like bloating side effect with Metamucil but tolerated citrucel in the past, recommend he restart this. Also has prn senna when he is more constipated which helps. Not interested in increasing bowel regimen today. We discussed that complete symptom relief may not be a fully achievable goal for this chronic condition, but that improvement in quality of life, healthy days at work and family functions, and also general symptom improvement may be more reasonable goals. We discussed that treatments should be tried individually and for periods of at least 4-8 weeks to truly assess symptom response. -RUQUS -Miralax daily -Citrucel daily -Senna prn Backup options he can try with his [...] ice cube tray to use as needed. Drug trials: try linzess 290mcg daily, if that fails, switch to motegrity 2mg daily if those fail, then advise correction glycerin suppository with tap water enema as needed Follow up 6-8 months 45 minutes spent in chart review, tele-health time and coordination of care with the patient today. Charline Ziegler MD [facility] [place] [address] documented in this encounter Plan of Treatment Upcoming Encounters Date Type Department Care Team (Late st Contact Info) Description 12/15/2024 11:30 AM EDT Office Visit Gastroenterology at [facility] [place] [address] Charline Ziegler MD [facility] [place] [address] documented as of this encounter Visit Diagnoses Diagnosis RUQ pain- Primary Abdominal pain, right upper quadrant Chronic constipation Unspecified constipation documented in this encounter Care Teams Terra Cotta Mold Maker Relationship Specialty Start Date End Date Reji Adams MD [facility] [place] [address] PCP - General General Internal Medicine 07/13/15 documented as of this encounter
--- OUTSIDE RECORDS SUMMARY | 2024-07-09 11:04 | XMS_ITS | Encounter Summary ---
Author Organization [facility] Address [facility] [place] [address] Care Team Providers Care Shuttle Van Driver Name Role Phone Reji Adams MD Primary Care Provider [phone] Reason for Referral * Diagnostic Test (Routine) - Closed Specialty Diagnoses / Procedures Referred By Contac t Referred To Contact Radiology Diagnoses Radiculopathy of lumbar region Procedures MRI Lumbar Spine wo Contrast (Generic) Reji Adams MD [facility] [place] [address] [facility] Rad Mri [address] [place] [address] Referral ID Status Reason Start Date Expiration Date V isits Requested Visits Authorized [id number] Closed Specialty Service Requested 12/11/2023 06/12/2025 1 1 Reason for Visit * Reason Comments Annual Wellness Visit Ongoing back and k nee problems Encounter Details Date Type Department Care Team (Late st Contact Info) Description 12/11/2023 1:40 PM EDT Office Visit Internal Medicine at [address] [address] Reji Adams MD [facility] [place] [address] Trochanteric bursitis of right hip; Pure hypercholesterolemia; Prostate cancer metastatic to intrapelvic lymph node; Anxiety; Age-related osteoporosis with current pathological fracture, sequela; Wellness examination; Radiculopathy of lumbar region; Hyperparathyroidism Social History Tobacco Use Types Packs/Day Years Used Date Smoking Tobacco: Never Smokeless Tobacco: Current Chew Comments:3 cans/ week. Alcohol Use Standard Drinks/Week Comments Not Currently 0 (1 standard drink = 0.6 oz pur e alcohol) [facility] Utilities Answer Date Recorded In the past 12 months has th e [employer], gas, oil, or water [employer] threatened to shut off services in your [...] Sign Reading Time Taken Comments Blood Pressure 113/70 12/11/2023 1:27 PM EDT Pulse 71 12/11/2023 1:27 PM EDT Temperature 36.2 ??C (97.1 ??F) 12/11/2023 1:27 PM ED T Respiratory Rate 16 12/11/2023 1:27 PM EDT Oxygen Saturation 99% 12/11/2023 1:27 PM EDT Inhaled Oxygen Concentration - - Weight 92.5 kg (204 lb) 12/11/2023 1:27 PM EDT w ith shoes Height 177.8 cm (5' 10) 12/11/2023 1:27 PM EDT Body Mass Index 29.27 12/11/2023 1:27 PM EDT documented in this encounter Progress Notes * Reji Adams MD - 12/11/2023 1:40 PM EDT Images from the original note were not included. MEDICARE ANNUAL WELLNESS VISIT Mr. Ken Mckeon, a 78 y.o. adult, presents today for a Medicare Annual Wellness Visit. CURRENT PROVIDERS & SUPPLIERS REGULARLY INVOLVED IN PROVIDING MEDICAL CARE (Update in chart) Patient Care Team: Reji Adams MD as PCP - General (General Internal Medicine) Ron Burns MD (Inactive) as PCP (General Internal Medicine) [] Mr. Mckeon did not identify any Suppliers of Medical Equipment. PROBLEM LIST, MEDICAL, SURGICAL & FAMILY HISTORY (Update in chart) Patient Active Problem List Diagnosis Code Status [...] with current pathological fracture M80.00XA Palpitations R00.2 Past Medical History: Diagnosis Date BPH (benign prostatic hyperplasia) Neck pain 08/24/2012 OA (osteoarthritis) of knee right Spinal cord injury at 2015 Past Surgical History: Procedure Laterality Date CREATED BY INTERFACE Past surg hx. Procedure Date: 09/19/2010 CT GUIDED SACROPLASTY/VERTEBROPLASTY 05/22/2022 CT Guided Sacroplasty/Vertebroplasty 05/22/2022 Tomas Falcon MD [facility] RAD CT SCAN PRO COLONOSCOPY, DIAGNOSTIC 09/07/2013 COLONOSCOPY, DIAGNOSTIC performed by Ximena Gu MD at [facility] ENDOSCOPY PRO COLONOSCOPY, DIAGNOSTIC N/A 07/26/2022 COLONOSCOPY, DIAGNOSTIC performed by May Riojas MD at [facility] ENDOSCOPY PRO COLONOSCOPY, REMV LESN, SNARE N/A 01/25/2020 COLONOSCOPY, POLYPECTOMY, REMOVAL LESION BY SNARE (WRVU 4.67) performed by Michelle Camarillo MDat [facility] ENDOSCOPY PRO ENDOSCOPIC US EXAM, ESOPH N/A 03/14/2020 UPPER EUS- ENDOSCOPIC ULTRASOUND performed by Festus Carballo MD at [facility] ENDOSCOPY PRO LIGATE/STRIP LONG SAPH VEIN BELW SEP-FEM JUNC 06/02/2012 LIGATION\DIV\STRIP GREATER SAPHENOUS VEIN performed by BEATRICE RODRÍGUEZ at [facility] MAIN OR PRO PHLEB VEINS - EXTREM - TO 20 06/02/2012 STAB PHLEBECTOMY KARLI VEINS, EXTREMITY 10-20 INCISIONS-SANTI performed by BEATRICE RODRÍGUEZ at [facility] MAIN OR PRO UPPER GI ENDOSCOPY, BIOPSY N/A 09/02/2017 EGD WITH BIOPSY (WRVU 2.49) performed by Rahul Escobar MD at [facility] ENDOSCOPY PRO UPPER GI ENDOSCOPY, BIOPSY N/A 01/25/2020 EGD WITH BIOPSY (WRVU 2.49) performed by Michelle Camarillo MD at [facility] ENDOSCOPY PRO UPPER GI ENDOSCOPY, BIOPSY N/A 03/14/2020 EGD WITH BIOPSY (WRVU 2.49) performed by Festus Carballo MD at [facility] ENDOSCOPY US GUIDED BIOPSY PROSTATE ([place] ONLY) 02/08/2019 US Guided Transrectal Biopsy 02/08/2019 [facility] RAD ULTRASOUND Family History Relation Problem Age of Onset Father Cancer testicular Diabetes Mother Cancer bone MEDICATIONS, SUPPLEMENTS & ALLERGIES (Update in chart) Medications 12/11/23 1359 Medication Sig Taking? meloxicam (Mobic) 7.5 mg tablet Take 1 tablet by mouth Daily at Noon. Yes ALPRAZolam (Xanax) 0.25 mg tablet Take 1 tablet by mouth 3 times daily as needed for Anxiety. Yes pravastatin (Pravachol) 20 mg tablet Take 1 tablet by mouth daily. Yes celecoxib (CeleBREX) 100 mg capsule Take 100 mg by mouth daily. Yes BORON ORAL Take [...] Take 1 tablet by mouth daily. Yes Allergies Allergen Reactions Penicillins Anaphylaxis Tongue swelling Betamethasone hiccups after injection Dexamethasone Hiccups after injection Triamcinolone Acetonide Hiccups [] Mr. Mckeon did not identify any supplements, including calcium and vitamins. ADVANCE DIRECTIVES (Populated from chart) Advance Directives (Y or N): N HEALTH RISK ASSESSMENT (HRA) (Populated from questionnaire) 12/10/2023 6:01 PM Adult Screener 65+ (AWV) Responses - All Who is completing? I am (patient) Highest education level Patient refused Ave number days/week - moderate to strenuous exercise [address] number min engaged at this level 0 min PHQ9 Total Score (Range 0-27) 2 (Minimal Depression) PHQ-9 Score 2 (Minimal Depression) Little interest or pleasure Several Days Down, depressed, hopeless Not at all Trouble sleeping Not at all Tired or no energy Several Days Poor appetite or overeating Not at all Feeling like a failure Not at all Trouble concentrating (newspaper) Not at all Moving or speaking slowly Not at all Would be better off Not at all Feeling nervous, anxious or on edge. Several days Not being able to stop or control worrying. Several days Worrying too much about different things. Several days Trouble relaxing. Several days Being so restless that it is hard to sit still. Not at all Becoming easily annoyed or irritable. Not at all Feeling afraid as if something awful might happen. Not at all KLAUDIA-7 Score 4 (Minimal Anxiety) GAD7 Total Score (Range 0-21) 4 (Minimal Anxiety) Drug use past year No Fallen in past year No Unsteady walking Yes Falling worry Yes Confusion/Memory loss No Difficulty doing low level activities? No, I do not have difficulty with these activities Needed help in the last 7 days doing high level activities? I do not need any help Hearing loss? Yes Ave fatigue in last 7 days Mild Driving Yes I drive Feel driving is difficult for you No Feel safe driving I feel safe Use seat belt Always Walkways free of clutter? Yes Smoke detectors on each floor? Yes Tooth/mouth that make it difficult/painful to eat Yes In last 30 days, how often eat a serving of fruit? Never In last 30 days, how often eat a serving of vegetables? At least once a month Financial Strain Patient declined Food worry Patient declined Food inability Patient declined Unable to pay mortgage/rent Patient declined Places lived 1 Have unsteady housing? Patient declined [employer], or [employer] threatened to shut off services Patient declined Feel isolated Decline Medical transport needs Patient declined Non-medical transport needs Patient declined How often need help with reading information from doctor/pharmacy? Decline VITAL SIGNS (Record in chart) Visit Vitals BP 113/70 (BP Location (NBP): Left arm, Patient Position: Sitting, BP Cuff Sizes: Large Adult (32-43 cm)) Pulse 71 Temp 36.2 ??C (97.1 ??F) (Temporal) Resp 16 Ht 177.8 cm (5' 10) Wt 92.5 kg (204 lb) Comment: with shoes SpO2 99% BMI 29.27 kg/m?? DEPRESSION SCREENING (Populated from chart & questionnaire) PHQ9 Questionnaires Data (Clinic and Pt Entered): last 4 values of depression scores 03/12/2022 7:14 AM 10/24/2022 12:36 PM 04/22/2023 10:23 AM 12/10/2023 6:01 PM PHQ-9 Score via Pt Questionnaire PHQ - 9 Score 0 (No Depression) 1 (Minimal Depression) 6 (Mild Depression) 2 (Minimal Depression) 03/22/2016 12:00 AM 11/22/2016 12:00 AM 04/22/2023 10:23 AM 12/10/2023 6:01 PM PHQ-9: Scores Only Post 11/25/22 Conversion PHQ-9 Score 2 (Minimal Depression) 6 (Mild Depression) 6 (Mild Depression) 2 (Minimal Depression) * A score of 5 or greater indicates a need for referral. MOBILITY ASSESSMENT - (Perform assessment as needed) [x] Mr. Mckeon did not identify any mobility issues in the Health Risk Assessment. [] Mr. Mckeon did identify a mobility issues in the Health Risk Assessment. * Complete a Fall Risk Assessment using the Timed Up & Go test for any falls or mobility concerns. Timed Up & Go time (seconds): not performed * A time Less than 12 seconds indicates a need for Community Based Falls Prevention Anderson Ji Jhon: Moving for Better Balance. * A time greater than or equal to 12 seconds indicates a need for referral to Physical Therapy and / or Community Based Falls Prevention Anderson Ji Jhon: Moving for Better Balance. * A time greater than or equal to 12 seconds and 2 or more falls or 1 fall with injury indicates a need for Multifactorial risk Assessment. HEARING ASSESSMENT - (Perform a whisper or finger rub test as needed) [x] Mr. Mckeon passed the whisper voice test or finger rub test. [] Mr. Mckeon did not pass the whisper voice test of finger rub test. MENTAL STATUS ASSESSMENT - (Perform assessment as needed) Mini-Cog Score (0-5): 5/5 * A score of less than 3 indicates a need for further assessment using MOCA or SLUMS MOCA / SLUMS Score (0-30): not performed * A score below 25 indicates a need to alert the PCP / referral for additional assessment. SCREENING SCHEDULE & IMMUNIZATIONS (Update in chart) Health Maintenance Topic Date Due Advance Directive Never done Tetanus vaccine 06/11/2033 Zoster vaccine Completed Hepatitis C Screening Completed Influenza (Flu) vaccine Completed Pneumoccocal Vaccine: 65+ Completed Covid-19 Vaccine Completed Tdap adult Completed Colorectal Cancer Screening Discontinued Popular services typically covered by Medicare Part B for patients 65 and older (may be more frequent in high risk patients) DT: 04/09 tdap and Td 05/2023 Pneumovax: 09/09 and pcv2014 Zostavax: 04/09 and shingrix 06/16 and 07/2020 Flu: 03/2023 Covid: 03/2023 Seat Belts: consistent Cholesterol (total/HDL/LDL): 11/17: 170/84/70 Colon cancer screenin06/2022: polyps HIV: neg ASA not recommended AAA screening: non-smoker PSA: see above Hep C: neg 09/09 Lung cancer screening: non-smoker RISK FACTORS AND PERSONALIZED HEALTH ADVICE (Complete in note) Mr. Mckeon was seen today for a Medicare Annual Wellness Visit. In conclusion, we discussed the following: Anxiety: On alprazolam 0.25mg tid. A lot of stress. Has declined SSRIS multiple times in the past. HLD: on pravastatin 20mg daily Prostate cancer: on Eligard. Followed by urology PSA undetectable 06/2023. Was to be seen by Dr Mejias but in 3 mths but I do not see any upcoming appointments. Insufficiency fractures: pt with sacral and L5 fractures that have not healed on MRI 04/09/2022. Underwent sacroplasty on 04/2022. Has been seen by endocrine with plan to treat. Of note PTH is elevated to 72 with normal calcium and vit D. Elevated urinary calcium D. Has f/u on 01/02/2024. R hip pain: on 11/27/2023 thought to be trochanteric bursitis and injected but pt had ongoing pain. Thought to be a radiculopathy General - No apparent distress. ENT - Mouth without lesions. Sinuses: Negative. Oropharynx: moist without lesions Eyes- EOMI. Not jaundiced. PERRL Neck - No lymphadenopathy. Full range of motion, no bruits, no thyromegaly Lungs - Clear to auscultation Heart - RRR, S1,S2, no murmur, gallop or rub. Pulses intact. Abdomen - Soft, nontender, normal active bowel sounds, neg hsm or masses. Extremities - No clubbing, cyanosis or edema. Joints normal. Skin - No sig lesions. No rashes. Nodes - negative Chest/Back - no spinal tenderness, no CVAT Neurological - Orientation - person, place and time. Cranial nerves intact. Strength - 5/5 upper and lower extremities. Sensation - light touch intact. DTR's - 2+, symmetrical. Ken Escobedo was seen today for annual wellness visit. Diagnoses and all orders for this visit: Trochanteric bursitis of right hip - Did appear that this was some component but think pt mostly with radiculopathy as main pain generator Pure hypercholesterolemia - Cont pravastatin Prostate cancer metastatic to intrapelvic lymph node - Cont to follow with oncology Anxiety - No change in meds Age-related osteoporosis with current pathological fracture, sequela - F/u with endocrine Wellness examination - See above Radiculopathy of lumbar region - MRI Lumbar Spine wo Contrast (Generic); Future - Trial DULoxetine DR (Cymbalta) [address] capsule; Take 1 capsule by mouth daily. - Pt will have difficult time laying flat for MRI. At this point will trial tramadol at some point before MRI to see if give adequate relief to allow MRI. It not could consider percocet as a one timedose prior to MRI [] A copy of the Risk Factors and Personalized Health Advice, Assessment and Plan and Health Maintenance List was copied to the patient's After Visit Summary. THE BELOW IS FOR INFORMATIONAL PURPOSES ONLY For the AVS: Copy Risk Factors and Personalized Health Advice Copy A&P Insert .HMLIST (list of patient's health maintenance). Billing: AWV Initial (G0438); AWV Subsequent (G0439). documented in this encounter Plan of Treatment Upcoming Encounters Date Type Department Care Team (Late st Contact Info) Description 12/15/2024 11:30 AM EDT Office [place] [address] Charline Ziegler MD [facility] [place] [address] documented as of this encounter Results * MRI Lumbar Spine wo Contrast (Generic) (12/18/2023 10:05 AM EDT) WORKSTATION ID [id number] [facility] Anatomical Region Laterality Modality L-spine Magnetic [...] the clinical situation (Reference- Jarvik Et Al, Spine 2001). Findings: (Prevalence in [...] who have questions please contact the health associate director career services that requested your imaging first. ? Electronically signed by: Trace Howard MD, [facility] ([phone]), at 12/18/2023 3:29 PM Narrative 12/18/2023 3:29 [...] in context of the clinical situation (Reference- Mike Et Al, [id number]). Findings: (Prevalence in patients without low back [...] patients who have questions please contactthe health associate director career services that requested your imaging first. Electronically signed by: Trace Howard MD, [facility]([phone]), at 12/18/2023 3:29 PM Reji Adams MD IMG MRI ORDERABLES documented in this encounter Visit Diagnoses Diagnosis Trochanteric bursitis of right hip Enthesopathy of hip region Pure hypercholesterolemia Prostate cancer metastatic to intrapelvic lymph node Anxiety Anxiety state, unspecified Age-related osteoporosis with current pathological fracture, sequela Wellness examination Radiculopathy of lumbar region Thoracic or lumbosacral neuritis or radiculitis, unspecified Hyperparathyroidism Hyperparathyroidism, unspecified Radiculopathy of lumbar region Thoracic or lumbosacral neuritis or radiculitis, unspecified documented in this encounter Care Teams Shuttle Van Driver Relationship Specialty Start Date End Date Reji Adams MD [facility] [place] [address] PCP - General General Internal Medicine 07/13/15 documented as of this encounter
--- OUTSIDE RECORDS SUMMARY | 2024-07-09 11:04 | XMS_ITS | Encounter Summary ---
Author Organization [facility] [place] [address] Care Team Providers Care Secondary Special Education Teacher Name Role Phone Reji Newberry MD Primary Care Provider [phone] Encounter Details Date Type Department Care Team (Late st Contact Info) Description 11/27/2023 Telephone [place] [address] Mounika Campos LPN Social History Tobacco Use Types Packs/Day Years [...] slept in a jail (including now)? Patient refused 07/20/2021 Sex and Gender Information Value Date Recorded Sex Assigned at Choose not to disclose 02/2023 8:26 AM EDT Gender Identity Not on file Sexual Orientation Choose not to disclose 2022 8:26 AM EDT documented as of this encounter Miscellaneous Notes * Telephone Encounter - Mounika Campos LPN - 11/27/2023 8:33 AM EDT Returned call to patient to inquire what he would like to know about steroid injections. Patient identified with name and . Patient wanted to know if we do steroid injections in clinic. This nurseadvised we are capable of doing one steroid injection depending on the site of the injection. Educated patient on the process of getting the steroid injection where he would be evaluated by the provider and the provider would make the decision on if steroid injection is the way to go or other options. Patient verbalizes understanding of and agrees with plan. * Telephone Encounter - Mounika Campos LPN - 11/27/2023 8:32 AM EDT Copied from [facility] #[id number]. Topic: Generic Non-Symptom Based - Generic Call >> November 27, 2023 8:12 AM Tamika Bueno wrote: Reason: Steroid Injection PCP: REJI NEWBERRY Reason for Call: Patient has question regarding steroid injections. Please reach out before his appointment today. documented in this encounter Plan of Treatment Upcoming Encounters Date Type Department Care Team (Late st Contact Info) Description 12/15/2024 11:30 AM EDT Office Visit [place] [address] Charline Ziegler MD [facility] [place] [address] documented as of this encounter Visit Diagnoses Not on filedocumented in this encounter Care Teams Secondary Special Education Teacher Relationship Specialty Start Date End Date Reji Newberry MD [facility] [place] [address] PCP - General General Internal Medicine 07/13/15 documented as of this encounter
--- OUTSIDE RECORDS SUMMARY | 2024-07-09 11:04 | XMS_ITS | Encounter Summary ---
Author Organization [facility] [place] [address] Care Team Providers Care Support Dba Name Role Phone Reji Adams MD Primary Care Provider [phone] Encounter Details Date Type Department Care Team (Latest Contact Info) Description 09/12/2023 Travel Social History Tobacco Use Types Packs/Day [...] 11:30 AM EDT Office [place] [address] Charline Ziegler MD [facility] [place] [address] documented as of this encounter Visit Diagnoses Not on filedocumented in this encounter Care Teams Support Dba Relationship Specialty Start Date End Date Reji Adams MD [facility] [place] [address] PCP - General General Internal Medicine 07/13/15 documented as of this encounter
--- OUTSIDE RECORDS SUMMARY | 2024-07-09 11:04 | XMS_ITS | Encounter Summary ---
Author Organization [facility] Address [facility] [place] [address] Care Team Providers Care Cell Builder Name Role Phone Reji Adams MD Primary Care Provider [phone] Reason for Visit * Reason Onset Date Comments Medication Refill 11/18/2023 Encounter Details Date Type Department Care Team (Late st Contact Info) Description 11/18/2023 Refill Internal Medicine at [address] [address] Reji Adams MD [facility] [place] [address] Anxiety Social History Tobacco Use Types Packs/Day [...] slept in a [facility] (including now)? Patient refused 07/20/2021 Sex and Gender Information Value Date Recorded Sex Assigned at Choose not to disclose 02/2023 8:26 AM EDT Gender Identity Not on file Sexual Orientation Choose not to disclose 2022 8:26 AM EDT documented as of this encounter Miscellaneous Notes * Telephone Encounter - Lola Blevins CCMA - 11/19/2023 3:00 PM EDT Date: 11/19/2023 [facility] Agreement signed (at least once): not on file 10/23/2023 10:32 AM 07/28/2023 8:56 AM 05/02/2023 9:37 AM 03/09/2023 6:55 PM Opioid PDMP [place] PDMP Query Date 10/24/2023 07/30/2023 05/02/2023 03/10/2023 [place] PDMP Query Date 10/24/2023 07/30/2023 05/02/2023 03/10/2023 [place] PDMP Query Date 10/24/2023 07/30/2023 05/02/2023 03/10/2023 PDMP (once per year) Any scripts from non- provider: no Last Filled (date, medication, quantity): per pdmp filled 10/24/23 23 day supply Last Med Check OV: 08/21/23 Patient needs to be seen on or before (q1y): scheduled 01/01/24 Sent to medical secretary teacher to schedule appointment: no documented in this encounter Plan of Treatment Upcoming Encounters Date Type Department Care Team (Late st Contact Info) Description 12/15/2024 11:30 AM EDT Office Visit [place] [address] Charline Ziegler MD [facility] [place] [address] documented as of this encounter Visit Diagnoses Diagnosis Anxiety Anxiety state, unspecified documented in this encounter Care Teams Cell Builder Relationship Specialty Start Date End Date Reji Adams MD [facility] [place] [address] PCP - General General Internal Medicine 07/13/15 documented as of this encounter
--- OUTSIDE RECORDS SUMMARY | 2024-07-09 11:04 | XMS_ITS | Encounter Summary ---
Author Organization [facility] Address [facility] [place] [address] Care Team Providers Care Records Management Manager Name Role Phone Reji Adams MD Primary Care Provider [phone] Encounter Details Date Type Department Care Team (Late st Contact Info) Description 11/09/2023 [place] [phone] Ashish Mchugh MD [facility] [place] [address] Social History Tobacco Use Types Packs/Day Years [...] as of this encounter Progress Notes * Ashish Mchugh MD - 11/09/2023 5:57 PM EDT Cardiology Telephone Note Requested by patient to comment on cardiac clearance for upcoming surgeries. He was seen in clinic recently on 09/23/23 for palpitations. Able to reach him by phone today and he he did not have any symptoms or signs of ACS, CHF, or electrical instability. He is able to complete METS>4. Has an upcoming knee replacement on 12/02. - Optimized from cardiac perspective - No further diagnostics needed for surgery Ashish Mchugh MD House Steward/Stewardess documented in this encounter Plan of Treatment Upcoming Encounters Date Type Department Care Team (Late st Contact Info) Description 12/15/2024 11:30 AM EDT Office [place] [address] Charline Ziegler MD [facility] [place] [address] documented as of this encounter Visit Diagnoses Not on filedocumented in this encounter Care Teams Records Management Manager Relationship Specialty Start Date End Date Reji Adams MD [facility] [place] [address] PCP - General General Internal Medicine 07/13/15 documented as of this encounter
--- OUTSIDE RECORDS SUMMARY | 2024-07-09 11:04 | XMS_ITS | Encounter Summary ---
Author Organization [facility] Address [facility] [place] [address] Care Team Providers Care Office Mail Clerk Name Role Phone Reji Adams MD Primary Care Provider Reason for Visit * Reason Comments Right Leg Pain [place] [facility] [place] was t old it was sciatica, given Toradol, did nothing, says he needs an injection?? He does not believe it is sciatica Encounter Details Date Type Department Care Team (Late st Contact Info) Description 11/27/2023 3:00 PM EDT Office Visit Internal Medicine at [address] [address] Magui Lawrence MD [facility] [place] [address] Trochanteric bursitis of right hip Social History Tobacco Use Types Packs/Day Years [...] slept in a correction (including now)? Patient refused 07/20/2021 Sex and Gender Information Value Date Recorded Sex Assigned at Choose not to disclose 02/2023 8:26 AM EDT Gender Identity Not on file Sexual Orientation Choose not to disclose 2022 8:26 AM EDT documented as of this encounter Last Filed Vital Signs Vital Sign Reading Time Taken Comments Blood Pressure 123/63 11/27/2023 2:52 PM EDT Pulse 69 11/27/2023 2:52 PM EDT Temperature 36.6 ??C (97.8 ??F) 11/27/2023 2:52 PM ED T Respiratory Rate - - Oxygen Saturation 100% 11/27/2023 2:52 PM EDT Inhaled Oxygen Concentration - - Weight 88.5 kg (195 lb) 11/27/2023 2:52 PM EDT r eported Height 177.8 cm (5' 10) 11/27/2023 2:52 PM EDT reported Body Mass Index 27.98 11/27/2023 2:52 PM EDT documented in this encounter Progress Notes * Magui Lawrence MD - 11/27/2023 3:00 PM EDT Subjective: Patient ID: Ken Mckeon is a 78 y.o. adult with PMH of TKR, cataract surgery, anxiety, cervical radiculopathy, depression, prostate cancer (mets to intrapelvic lymph node), left anterior fascicular block, paroxysmal SVT, RBBB, HLD, THR, compression fx, and osteoporosis who presents for severe right thigh pain that began 3 days ago. Chief Complaint Patient presents with Right Leg Pain Seen [place] [facility] [place] was told it was sciatica, given Toradol, did nothing, says he needs an injection?? He does not believe it is sciatica Per chart review, he was seen in the [facility] [place] on 11/24/23 for pain in the right buttock and leg pain down to the knee which began a few days ago. It has been worsening, and is worse in the morning. Pain is better if he is up and moving. He was initially scheduled for a left TKR soon which he cancelled given current pain. In ED, VSS. He had slight pain with straight leg raise on right. Strength was intact. He had tenderness over the lumbar spine on exam, in the right SI region. Sensation was also intact. XR femur right and pelvis showed uncomplicated right THR and no fx. Ultimately, he had no fall or trauma. He had no bladder or bowel function. He denied numbness at that time. He was given IV toradol. He was given prednisone (5 day course). He was diagnosed with low back pain with R leg sciatica. Per chart review, he has been taking prednisone which is not helping and he is taking 3 g tylenol daily. He also has tried icing. Today, patient notes he has had pain over his lateral right thigh. He has a history of trochantericbursitis and thinks this is right sided trochanteric bursitis. It is difficult to lay down as he also has chronic back pain but when he does try to lay down, the thigh pain radiates anteriorly. He has had trochanteric bursa injections in the past which have helped with symptoms. Right thigh pain began this week. Icing helps. He has tried Aspercreme which helps a bit as well. Heat does not provide relief. He has been taking tylenol (650 tablets QID) which does not provide much relief. He was prescribed prednisone in the ED which did not provide relief. He denies any new numbness or tingling. He denies traumas, falls, or heavy lifting. He denies bladder or bowel incontinence. 04/22/2023 Behavioral Health Responses (QBHI) Total PHQ-9 6 (Mild Depression) PHQ9 Total Score (Range 0-27) 6 (Mild Depression) Total KLAUDIA-7 1 (Minimal Anxiety) Objective: BP 123/63 (BP Location (NBP): Left arm, Patient Position: Sitting, BP Cuff Sizes: Large Adult (32-43 cm)) Pulse 69 Temp 36.6 ??C (97.8 ??F) (Temporal) Ht 177.8 cm (5' 10) Comment: reported Wt 88.5 kg (195 lb) Comment: reported SpO2 100% BMI 27.98 kg/m?? Wt Readings from Last 3 Encounters: 11/27/23 88.5 kg (195 lb) 11/24/23 88.5 kg (195 lb) 09/23/23 91.2 kg (201 lb) Physical Exam Constitutional: General: He is not in acute distress. Cardiovascular: Rate and Rhythm: Normal rate and regular rhythm. Heart sounds: Normal heart sounds. No murmur heard. No friction rub. No gallop. Pulmonary: Effort: Pulmonary effort is normal. No respiratory distress. Breath sounds: Normal breath sounds. No wheezing, rhonchi or rales. Musculoskeletal: Comments: Significant pain with palpation over right trochanteric bursa No pain with palpation over left trochanteric bursa *Exam limited as patient unable to lay flat for FAIR, JUDI, hip ROM, etc. Neurological: Mental Status: He is alert. Assessment and Plan: Ken Mckeon is a 78 y.o. adult with PMH of TKR, cataract surgery, anxiety, cervical radiculopathy, depression, prostate cancer (mets to intrapelvic lymph node), left anterior fascicular block, paroxysmal SVT, RBBB, HLD, THR, compression fx, and osteoporosis who presents for severe right thigh pain. Differential includes right trochanteric bursitis which is likely given tenderness to palpation over this region and location of pain. Sciatica is less likely as pain is not radiating down the posterior leg. Recent XR did not show fx. Patient was unable to lay flat for FAIR, JUDI, hip ROM exam,etc. Ultimately, he would like to proceed with an intrabursal cortisone injection. Risks and benefits of procedure were discussed. Patient expressed understanding. #right trochanteric bursitis - cortisone injection PROCEDURE NOTE: After verbal consent, a time-out was conducted just before the start of the procedure to verify thecorrect patient and procedure, procedure location, and all relevant critical information. The RIGHTHIP was cleansed using povidone- iodine swabs x3. Using a 25 1.5 -gauge needle RIGHT TROCHANTERIC BURSA was entered and 40mg of depomedrol and 2 ml of lidocaine was injected without complication. Pt had immediate improvement of the pain and tolerated the procedure well. Post injection instructions were discussed. Ken Escobedo was seen today for right leg pain. Diagnoses and all orders for this visit: Trochanteric bursitis of right hip - Discontinue: methylPREDNISolone acetate (DEPO-Medrol) (40 mg/mL) injection 40 mg - methylPREDNISolone acetate (DEPO-Medrol) (40 mg/mL) injection 40 mg * Reji Adams MD - 11/27/2023 3:00 PM EDT The case was discussed in person at the time of the visit or immediately after the visit. The assessment and plan were formulated in discussion with me and I agree with them as documented. I have reviewed the history, physical exam, assessment and plan with the resident. Major issues discussed today: R lateral hip pain that started this week but no known trigger. Worse when lying down. Has had before and states injections have helped him before. Taking tylenol currently. Exam TTP over R greater trochanteric bursa Plan: Trochanteric bursitis PROCEDURE NOTE: Injection performed by Dr Lawrence and I was present and assisted throughout procedure After verbal consent, a time-out was conducted just before the start of the procedure to verify thecorrect patient and procedure, procedure location, and all relevant critical information. The R lateral hip was cleansed using povidone-iodine swabs x3. Using a 21-gauge needle R trochanteric bursa was entered and 40mg of depomedrol and 2 ml of lidocaine was injected without complication. Pt had immediate improvement of the pain and tolerated the procedure well. Post injection instructions were discussed documented in this encounter Plan of Treatment Upcoming Encounters Date Type Department Care Team (Late st Contact Info) Description 12/15/2024 11:30 AM EDT Office [place] [address] Charline Ziegler MD [facility] [place] [address] documented as of this encounter Visit Diagnoses Diagnosis Trochanteric bursitis of right hip Enthesopathy of hip region documented in this encounter Administered Medications Inactive Administered Medications - up to 3 most recent administrations Medication Order MAR Action Action Date Dose Rate Site methylPREDNISolone acetate (DEPO-Medrol) (40 mg/mL) injection 40 mg 40 mg, INTRABURSAL, ONCE, 1 dose, On Alice 11/27/23 at 1600, Routine Given 11/27/2023 3:45 PM EDT 40 mg Right Hip documented in this encounter Care Teams Office Mail Clerk Relationship Specialty Start Date End Date Reji Adams MD [facility] [place] [address] PCP - General General Internal Medicine 07/13/15 documented as of this encounter
--- OUTSIDE RECORDS SUMMARY | 2024-07-09 11:04 | XMS_ITS | Encounter Summary ---
Author Organization [facility] [place] [address] Care Team Providers Care District Plant Engineer Name Role Phone Reji Newberry MD Primary Care Provider [phone] Reason for Visit * Reason Onset Date Comments Otalgia 10/10/2023 Encounter Details Date Type Department Care Team (Late st Contact Info) Description 10/10/2023 Nurse Triage Internal Medicine at [address] [address] Amrita Webster, RN Otalgia Social History Tobacco Use Types Packs/Day Years [...] encounter Miscellaneous Notes * Telephone Encounter - Amrita Webster RN - 10/10/2023 12:11 PM EDT Copied from [facility] #[id number]. Topic: Triage - Triage >> Oct 09, 2023 4:16 PM Yolanda Durham wrote: Symptom: Ear pain PCP: REJI NEWBERRY Additional Comments: Patient calling states for 3 days he has had ear pain and fatigue. Patient unable to find appointment in time frame needed. Please contact to discuss. documented in this encounter Plan of Treatment Upcoming Encounters Date Type Department Care Team (Late st Contact Info) Description 12/15/2024 11:30 AM EDT Office [place] [address] Charline Ziegler MD [facility] [place] [address] documented as of this encounter Visit Diagnoses Not on filedocumented in this encounter Care Teams District Plant Engineer Relationship Specialty Start Date End Date Reji Newberry MD [facility] [place] [address] PCP - General General Internal Medicine 07/13/15 documented as of this encounter
--- OUTSIDE RECORDS SUMMARY | 2024-07-09 11:04 | XMS_ITS | Encounter Summary ---
Author Organization [facility] Address [facility] [place] [address] Care Team Providers Care Embedded Processor Name Role Phone Reji Adams MD Primary Care Provider [phone] Reason for Visit * Reason Onset Date Comments Medication Refill 10/23/2023 Encounter Details Date Type Department Care Team (Late st Contact Info) Description 10/23/2023 Refill Internal Medicine at [address] [address] Reji Adams MD [facility] [place] [address] Anxiety Social History Tobacco Use Types Packs/Day [...] slept in a alf (including now)? Patient refused 07/20/2021 Sex and Gender Information Value Date Recorded Sex Assigned at Choose not to disclose 02/2023 8:26 AM EDT Gender Identity Not on file Sexual Orientation Choose not to disclose 2022 8:26 AM EDT documented as of this encounter Miscellaneous Notes * Telephone Encounter - Lola Blevins CCMA - 10/24/2023 8:56 AM EDT Date: 10/24/2023 [facility]acy: [facility] Agreement signed (at least once): not on [...] Filled (date, medication, quantity): per pdmp filled 09/27/23 23 day supply Last Med Check OV: 08/21/23 Patient needs to be seen on or before (q1y): scheduled 01/01/24 Sent to steeping press operator to schedule appointment: no Pravastatin change in pharmacy Lipid Panel Lab Results Component Value Date CHLPL 170 11/20/2022 HDL 84 11/20/2022 CHOLHDL 2.0 11/20/2022 TRIG 80 11/20/2022 LDLCHOL 70 11/20/2022 documented in this encounter Plan of Treatment Upcoming Encounters Date Type Department Care Team (Late st Contact Info) Description 12/15/2024 11:30 AM EDT Office [place] [address] Charline Ziegler MD [facility] [place] [address] documented as of this encounter Visit Diagnoses Diagnosis Anxiety Anxiety state, unspecified documented in this encounter Care Teams Embedded Processor Relationship Specialty Start Date End Date Reji Adams MD [facility] [place] [address] PCP - General General Internal Medicine 07/13/15 documented as of this encounter
--- OUTSIDE RECORDS SUMMARY | 2024-07-09 11:04 | XMS_ITS | Encounter Summary ---
Author Organization [facility] Address [facility] [place] [address] Care Team Providers Care Golf Manager Name Role Phone Reji Adams MD Primary Care Provider [phone] Encounter Details Date Type Department Care Team (Late st Contact Info) Description 12/08/2023 Orders Only Internal Medicine at [facility] [address] [place] [address] Reji Adams MD [facility] [place] [address] Social History Tobacco Use Types Packs/Day Years [...] 11:30 AM EDT Office [place] [address] Charline Ziegler MD [facility] [place] [address] documented as of this encounter Visit Diagnoses Not on filedocumented in this encounter Care Teams Golf Manager Relationship Specialty Start Date End Date Reji Adams MD [facility] [place] [address] PCP - General General Internal Medicine 07/13/15 documented as of this encounter
--- OUTSIDE RECORDS SUMMARY | 2024-07-09 11:04 | XMS_ITS | Encounter Summary ---
Author Organization [facility] [place] [address] Care Team Providers Care Chief Nurse Executive Name Role Phone Reji Adams MD Primary Care Provider [phone] Encounter Details Date Type Department Care Team (Late st Contact Info) Description 06/27/2023 [place] [address] Aminata Henderson, RN Social History Tobacco Use Types Packs/Day [...] slept in a long-term (including now)? Patient refused 07/20/2021 Sex and Gender Information Value Date Recorded Sex Assigned at Choose not to disclose 02/2023 8:26 AM EDT Gender Identity Not on file Sexual Orientation Choose not to disclose 2022 8:26 AM EDT documented as of this encounter Miscellaneous Notes * Telephone Encounter - Aminata Henderson RN - 06/27/2023 12:43 PM EST [facility] Call Documentation Birthdate: 1945 Call Date: Age: 77 Years Work Phone: Work Phone: Gender: Male Time: [place] [address] Address: [place] [address] Address: PCP: Meet Adams MD Relationship to Caller: Self [facility] Chief Complaint: HEART Call Outcome: ED Immediately Client: Company: [employer] Phone[employer]1: TVTY, Triage Patient: Kne Mckeon Caller Is: Ken Mckeon 06/27/2023 12:31 Hospital Admissison in past 30 days? No Mbr ID: Email: Preliminary Assessment Notes & Patient/Caller Notes: Chief Complaint: heart palpitations Onset: friday Describe Sx: feels like heart is racing and palpitations and skipped beats, not the first time thishas happened, a few years ago had this type of thing but it has not lasted this long before, denies chest pain and heaviness, denies sob or difficulty breathing, has no way to check blood pressure or pulse, sometimes has dizziness and light headed Worse/Better (include Meds:D/R/T): unable to determine if anything makes it worse or better Effects on normal activity: tries to walk daily but didn't feel right yesterday when walking, normal activies around the house, sleeping more I&O: normal, straining for bowel movements more recently Temp (rte/time): denies fever Pain scale/0-10: arthritis pain but denies chest pain or pain elsewhere. NOTES: educated patient on someone else driving him to the ER; states he will drive himself. Patient / Caller Notes: DIAGNOSED PROBLEMS: hx cancer, two electric bundle blocks MEDICATIONS:statin ALLERGIES: pnc, betamethasone, dexamethasone FULL COURSE OF COVID IMMUNIZATION?: n/a ANNUAL FLU SHOT?: n/a Pt. Fabricio/Alerts : 06/27/2023 12:33:23 SS3 Nursing Documentation: Triage By: SS3 Guideline: Heart Rate and Heartbeat Questions - (Adult After-Hours) [[id number]] Triage Level: Pre Disposition: RN Override: Go to ED Now See/call Doctor Disagree Reason: Go to Facility: Patient Understands Instructions: Yes Questions / Responses For: Heart Rate and Heartbeat Questions - (Adult After- Hours) [[id number]] TRIAGE QUESTION (TRIGGERING DISPOSITION) Response Dizziness, lightheadedness, or weakness CARE ADVICE Response Ken Mckeon Triage #: [id number] - [HEART] Page 1 of 2 1. CARE ADVICE given per Heart Rate and Heartbeat Questions (Adult) guideline. 41. GO TO ED NOW: * You need to be seen in the Emergency Department. * Go to the ED at Hospital. * Leave now. Drive carefully. 80. ANOTHER ADULT SHOULD DRIVE: * It is better and safer if another adult drives instead of you. 92. NOTE TO TRIAGER - DRIVING: * Another adult should drive. * Patient should not delay going to the emergency department. * If immediate transportation is not available via car, rideshare (e.g., Lyft, Uber), or taxi, then the patient should be instructed to call [id number]. Ken Mckeon Triage #: [id number] - [HEART] Page 2 of 2 documented in this encounter Plan of Treatment Upcoming Encounters Date Type Department Care Team (Late st Contact Info) Description 12/15/2024 11:30 AM EDT Office [place] [address] Charline Ziegler MD [facility] [place] [address] documented as of this encounter Visit Diagnoses Not on filedocumented in this encounter Care Teams Chief Nurse Executive Relationship Specialty Start Date End Date Reji Adams MD [facility] [place] [address] PCP - General General Internal Medicine 07/13/15 documented as of this encounter
--- OUTSIDE RECORDS SUMMARY | 2024-07-09 11:04 | XMS_ITS | Encounter Summary ---
Author Organization [facility] Address [facility] [place] [address] Care Team Providers Care Missile Mechanic Name Role Phone Reji Adams MD Primary Care Provider [phone] Reason for Visit * Reason Onset Date Comments Medication Refill 08/28/2023 Encounter Details Date Type Department Care Team (Late st Contact Info) Description 08/28/2023 Refill Internal Medicine at [address] [address] Reji Adams MD [facility] GENER[facility] [place] [address] Anxiety Social History Tobacco Use Types Packs/Day [...] EDT Office [place] [address] Charline Ziegler MD [facility] [place] [address] documented as of this encounter Visit Diagnoses Diagnosis Anxiety Anxiety state, unspecified documented in this encounter Care Teams Missile Mechanic Relationship Specialty Start Date End Date Reji Adams MD [facility] [place] [address] PCP - General General Internal Medicine 07/13/15 documented as of this encounter
--- OUTSIDE RECORDS SUMMARY | 2024-07-09 11:04 | XMS_ITS | Encounter Summary ---
Author Organization [facility] [place] [address] Care Team Providers Care Senior Loss Control Specialist Name Role Phone Reji Adams MD Primary Care Provider [phone] Encounter Details Date Type Department Care Team (Latest Contact Info) Description 07/25/2023 Travel Social History Tobacco Use Types Packs/Day [...] place to sleep or slept in a intermediate (including now)? Patient refused 07/20/2021 Sex and [...] 11:30 AM EDT Office [place] [address] Charline Ziegler MD [facility] [place] [address] documented as of this encounter Visit Diagnoses Not on filedocumented in this encounter Care Teams Senior Loss Control Specialist Relationship Specialty Start Date End Date Reji Adams MD [facility] [place] [address] PCP - General General Internal Medicine 07/13/15 documented as of this encounter
--- OUTSIDE RECORDS SUMMARY | 2024-07-09 11:04 | XMS_ITS | Encounter Summary ---
Author Organization [facility] [place] [address] Care Team Providers Care Operator Assistant I Cementing Name Role Phone Reji Adams MD Primary Care Provider [phone] Encounter Details Date Type Department Care Team (Latest Contact Info) Description 11/27/2023 Travel Social History Tobacco Use Types Packs/Day [...] place to sleep or slept in a care home (including now)? Patient refused 07/20/2021 Sex [...] 11:30 AM EDT Office [place] [address] Charline Ziegler MD [facility] [place] [address] documented as of this encounter Visit Diagnoses Not on filedocumented in this encounter Care Teams Operator Assistant I Cementing Relationship Specialty Start Date End Date Reji Adams MD [facility] [place] [address] PCP - General General Internal Medicine 07/13/15 documented as of this encounter
--- OUTSIDE RECORDS SUMMARY | 2024-07-09 11:04 | XMS_ITS | Encounter Summary ---
Author Organization [facility] [place] [address] Care Team Providers Care Senior Medical Director Name Role Phone Reji Adams MD Primary Care Provider [phone] Encounter Details Date Type Department Care Team (Latest Contact Info) Description 07/16/2023 Travel Social History Tobacco Use Types Packs/Day [...] 11:30 AM EDT Office [place] [address] Charline Ziegler MD [facility] [place] [place] [address] documented as of this encounter Visit Diagnoses Not on filedocumented in this encounter Care Teams Senior Medical Director Relationship Specialty Start Date End Date Reji Adams MD [facility] [place] [address] PCP - General General Internal Medicine 07/13/15 documented as of this encounter
--- OUTSIDE RECORDS SUMMARY | 2024-07-09 11:04 | XMS_ITS | Encounter Summary ---
Author Organization [facility] [place] [address] Care Team Providers Care Accountant Machine Processing Name Role Phone Reji Adams MD Primary Care Provider [phone] Encounter Details Date Type Department Care Team (Latest Contact Info) Description 12/10/2023 Travel Social History Tobacco Use Types Packs/Day Years Used Date Smoking Tobacco: Never Smokeless Tobacco: Current Chew Comments:3 cans/ week. Alcohol Use Standard Drinks/Week Comments Not Currently 0 (1 standard drink = 0.6 oz pur e alcohol) [facility] Utilities Answer Date Recorded In the past 12 months has [employer] electric, gas, oil, or water Score The Board threatened to shut off services in your [...] 11:30 AM EDT Office [place] [address] Charline Ziegler MD [facility] [place] [address] documented as of this encounter Visit Diagnoses Not on filedocumented in this encounter Care Teams Accountant Machine Processing Relationship Specialty Start Date End Date Reji Adams MD [facility] [place] [address] PCP - General General Internal Medicine 07/13/15 documented as of this encounter
--- OUTSIDE RECORDS SUMMARY | 2024-07-09 11:04 | XMS_ITS | Encounter Summary ---
Author Organization [facility] [place] [address] Care Team Providers Care Stock Transfer Clerk Name Role Phone Reji Adams MD Primary Care Provider [phone] Encounter Details Date Type Department Care Team (Latest Contact Info) Description 10/14/2023 Travel Social History Tobacco Use Types Packs/Day [...] slept in a longterm (including now)? Patient refused 07/20/2021 Sex and [...] 11:30 AM EDT Office [place] [address] Charline Ziegler MD [facility] [place] [address] documented as of this encounter Visit Diagnoses Not on filedocumented in this encounter Care Teams Stock Transfer Clerk Relationship Specialty Start Date End Date Reji Adams MD [facility] GENERAL [place] [address] PCP - General General Internal Medicine 07/13/15 documented as of this encounter
--- OUTSIDE RECORDS SUMMARY | 2024-07-09 11:04 | XMS_ITS | Encounter Summary ---
Author Organization [facility] [place] [address] Care Team Providers Care Application Security Developer Name Role Phone Reji Adams MD Primary Care Provider [phone] Reason for Visit * Reason Onset Date Comments Other 12/05/2023 Faxed Referral t o NeurosurgeryTo: Bright [phone] Encounter Details Date Type Department Care Team (Late st Contact Info) Description 12/05/2023 Notes [place] [id number] Loreta Chavira CCMA Other (Faxed Referral to Neurosurgery/To: Bright [phone]) Social History Tobacco Use Types Packs/Day Years [...] slept in a fci (including now)? Patient refused 07/20/2021 Sex and [...] 11:30 AM EDT Office [place] [address] Charline Ziegler MD [facility] [place] [address] documented as of this encounter Visit Diagnoses Not on filedocumented in this encounter Care Teams Application Security Developer Relationship Specialty Start Date End Date Reji Adams MD [facility] GENER[facility] [place] [address] PCP - General General Internal Medicine 07/13/15 documented as of this encounter
--- OUTSIDE RECORDS SUMMARY | 2024-07-09 11:04 | XMS_ITS | Encounter Summary ---
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 Diagnosis: pT2, pN0, cM0, PSA: 7, Grade Group: 5, [place]: 4, +: 5) CC:I feel okay HPI:Ken Mckeon is 77 y.o.M Coming for second opinion on management of prostate cancer. He was initially diagnosed with prostate cancer in 2018. Ken underwent radical prostatectomy in April 2019. His PSA has been slowly rising and reached level of biochemical recurrence in April 2021. Hefollowed with radiation oncologist Dr. White. Went for second opinion to [facility]. Mr. Mckeon had a PSMA PET scan at [facility] 07/02/21 and evaluation in radiation oncology and medical oncology by Dr. Marin and Dr. Desai, respectively at [facility].PET showed possible L2 and pelvic node recurrence ofprostate cancer s/p prostatectomy. A recommendation was made for lumbar spine MRI and the patient prefers to have it at this hospital,[facility]. I have requested the MRI L spine here. Dr. Desai and Saeed had recommended abiraterone prednisone with potential radiation to pelvic nodes and L2 disease if that is confirmed to be oligometastatic prostate cancer He has an appointment with our radiation oncologist Dr. Davis next week. Oncological history: Oncology History Prostate cancer 07/19/2006 Initial Diagnosis July 19, 2006: PSA 1.89 July 18, 2007: PSA 1.42 June 14, 2008: PSA 1.54 September 19, 2010: PSA 1.83 October 24, 2011: PSA 1.96 September 01, 2012: PSA 1.96 November 19, 2013: PSA 2.71 July 07, 2015: PSA 3.40 February 07, 2017: PSA 4.78 February 25, 2017: PSA 4.7 March 03, 2017: PSA 6.19 04/07/2017 Biopsy April 07, 2017: Prostate biopsy revealed a 34 mL gland. There was no malignancy identified. 06/18/2017 - Cancer Staged June 18, 2017: CT of abdomen pelvis showed no evidence of adenopathy. October 23, 2017: PSA 6.60 April 27, 2018: PSA 6.59 October 26, 2018: PSA 8.11 November 23, 2018: PSA 7.27 December 16, 2018: MRI of the pelvis revealed a 46.38 mL gland. There was a 1.5 cm anterior peripheral zone lesion at the base and mid gland that was PI-RADS 5 with minimal bulge of the prostate contour without gross extraprostatic extension. There is no lymphadenopathy or bony metastatic disease. February 03, 2019: PSA 7.20 02/08/2019 Biopsy February 08, 2019: Prostate biopsy showed a 45 mL gland. Pathology reviewed at the [facility] showed [place] 4+5 involving 20 to 50% of 3 cores from the targeted lesion. There was an intraductal carcinoma component present. The remaining tissue was negative for malignancy. 02/08/2019 - Cancer Staged Staging form: Prostate, AJCC 8th Edition - Clinical stage from 02/08/2019: Stage IIIC (cT1c, cN0, cM0, PSA: 7.3, Grade Group: 5, 02/08/19, [place]: 4, +: 5) - Signed by Leonid Tipton MD, MPH on 06/06/2021 02/22/2019 - Cancer Staged February 22, 2019: Nuclear medicine bone scan at [facility] showed no evidence of bony metastatic disease 05/18/2019 Surgery May 18, 2019: Radical prostatectomy with pathology reviewed at [facility] showed Sinan 4+5 involving 10% of the prostate. There is no lymphovascular invasion identified though there was perineural invasion. The disease was confined to the prostate without extracapsular or seminal vesicle invasion. 8 lymph nodes were examined all which were negative. The margins were clear. Decipherscore 0.90 06/23/2019 - Cancer Staged June 23, 2019: PSA 0.02 October 06, 2019: PSA less than 0.01 January 03, 2020: PSA less than 0.01 April 20, 2020: PSA 0.02 August 29, 2020: PSA 0.05 September 21, 2020: PSA 0.08 November 03, 2020: PSA 0.09 December 08, 2020: MRI of the spine showed no bony metastatic disease January 08, 2021: PSA 0.14 February 07, 2021: PSA 0.172 May 07, 2021: PSA 0.253 06/06/2021 - Cancer Staged - Pathologic: Stage IIIC (pT2, pN0, cM0, PSA: 7, Grade Group: 5, [place]: 4, +: 5) , high risk for recurrence 07/02/[address]: 1. Mildly [...] concern for a metastatic deposit 07/12/2021 Darlin turpin MRI spine. No evidence of osseous metastasis in the lumbar spine with mild lumbar spondylosis. 09/11/2021 - 10/24/2021 Radiation Therapy -08/10/21: started Lupron -Started radiation therapy. 09/12/2021 - started Abiraterone and prednisone. Interval history:eKn Mckeon is in clinic for follow-up appointment prostate cancer. Overall, hefeels well. Scheduled for dental work in July and elbow surgery in August. Complains of pain in his left knee. PMH: No interval changes since last visit sacroplasty and L5 vertebroplasty back in April 2022 Osteoarthritis, anxiety, history of spinal cord injury Past Medical History: Diagnosis Date BPH (benign prostatic hyperplasia) Neck pain 08/24/2012 OA (osteoarthritis) of knee right Spinal cord injury at 2015 Social History: Non-smoker, drinks up to 3 beers a week. Retired Social History Socioeconomic History Marital status: Unknown Spouse name: Not on file Number of children: 3 Years of education: Not on file Highest education level: Not on file Occupational History Occupation: retired Tobacco Use Smoking status: Never Smokeless tobacco: Current Types: Chew Tobacco comments: 3 cans/ week. Vaping Use Vaping Use: Never used Substance and Sexual Activity Alcohol use: Not Currently Drug use: No Sexual activity: Yes Partners: Female Other Topics Concern Do You live alone? Not Asked Tobacco in Home Not Asked Social History Narrative Not on file Social Determinants of Health Financial Resource Strain: Unknown (07/20/2021) Overall Financial Resource Strain (CARDIA) Difficulty of Paying Living Expenses: Patient refused Food Insecurity: Unknown (07/20/2021) Hunger Vital Sign Worried About Running Out of Food in the Last Year: Patient refused Ran Out of Food in the Last Year: Patient refused Transportation Needs: Not on file Physical Activity: Not on file Intimate Partner Violence: Not on file Housing Stability: Unknown (07/20/2021) Housing Stability Vital Sign Unable to Pay for Housing in the Last Year: Patient refused Number of Places Lived in the Last Year: Not on file Unstable Housing in the Last Year: Patient refused Family History: Mother had bone cancer Family History Problem Relation Age of Onset Cancer Mother bone Diabetes Father Cancer Father testicular Allergies: Allergies Allergen Reactions Penicillins Anaphylaxis Tongue swelling Betamethasone hiccups after injection Dexamethasone Hiccups after injection Triamcinolone Acetonide Hiccups Your Medications Accurate as of July 16, 2023 10:52 AM. If you have any questions, ask your nurse or doctor. Continued medications, unchanged Dose Details acetaminophen 650 mg ER tablet Commonly known as: Tylenol Take 650 mg by mouth every 8 hours as needed for Pain. Do not exceed 6 tabs in 24 hours 650 mg Refills: 0 ALPRAZolam 0.25 mg tablet Commonly known as: Xanax Take 1 tablet by mouth 3 times daily as needed for Anxiety. 0.25 mg Quantity: 70 tablet Refills: 0 BORON ORAL Take 2 mg by mouth daily. 2 mg Refills: 0 cod liver oiL 240-1,000 mg Capsule Take by mouth. Generic drug: [id number]-jsg-nut-cod liver-vit A-D3 Refills: 0 multivitamin Tablet Commonly known as: THERAGRAN Take 1 tablet by mouth daily. 1 tablet Refills: 0 NASACORT ALLERGY NASL by Nasal route daily. PRN Refills: 0 polyethylene glycoL 17 gram/dose Powder Commonly known as: Miralax Take 17 g by mouth daily. 17 g Refills: 0 pravastatin 20 mg tablet Commonly known as: Pravachol Take 1 tablet by mouth once daily Quantity: 90 tablet Refills: 0 tadalafiL 5 mg tablet Commonly known as: Cialis Take 5 mg by mouth as needed for Erectile Dysfunction. 5 mg Refills: 0 Review of Systems: Constitutional: Positive for fatigue HEENT: Hearing loss Eyes: Negative. Respiratory: Negative for cough, shortness of breath and wheezing. Cardiovascular: Dyspnea. Pounding heart Gastrointestinal: Negative for nausea, vomiting, abdominal pain, diarrhea, constipation and abdominal distention. Genitourinary: Negative for dysuria and difficulty urinating. Musculoskeletal: Leg weakness Skin: Negative. Neurological: Unsteadiness on his feet. Hematological: Negative for adenopathy. PE: Constitutional: NAD HENT: Head: NCAT Eyes: Non-injected, anicteric. Neck: Normal ROM, supple. Cardiovascular: RRR, no murmur. Resp: Effort normal. No respiratory distress. Wheezes bilat lobes, no rales or rhonchi. Lymph: No palpable lymph nodes in cervical, supraclavicular, axillary areas. Abdominal: Soft, NT, ND, BS+ : no CVA tenderness. Skin: Skin is warm and dry. No rash or lesions noted on limited exam. No pallor. Musculoskeletal: No spinal tenderness. Normal range of motion, ambulatory. Extremities: No distal edema noted. Neurological: Alert & oriented, no focal deficits. Psych: Conversant, normal mood and affect. BP 113/82 (Patient Position: Sitting) Pulse 67 Temp 35.6 ??C (96.1 ??F) (Temporal) Ht 176.8 cm (5' 9.61) Wt 89.4 kg (197 lb 1.5 oz) SpO2 99% BMI 28.60 kg/m?? Pathology: 05/18/2019 Outside slide(s) labeled [id number], collection date 05/18/2019. A) Soft tissue, left neurovascular bundle, biopsy: - Benign soft tissue. B) Soft tissue, right neurovascular bundle, biopsy: - Benign soft tissue. C) Lymph node, left pelvice, excision: - Two lymph nodes, negative for malignancy. (0/2) D) Lymph node, right pelvic, excision: - Six lymph nodes, negative for malignancy. (0/6) E) Soft tissue, preprostatic, biopsy: - Benign adipose tissue. F) Prostate, apex, biopsy: - Benign fibromuscular soft tissue. G) Prostate, radical prostatectomy: (See SYNOPTIC REPORT) SYNOPTIC Specimen Procedure: Radical prostatectomy Tumor Histologic Type: Acinar adenocarcinoma Histologic Grade Grade Group and [place] Score: Grade group 5 ([place] Score 4 + 5 = 9) Percentage of Pattern 4: 45% Percentage of Pattern 5: 35% Intraductal Carcinoma (IDC): Present Tumor Location: Predominantly right side Tumor Quantitation: Estimated percentage of prostate involved by tumor - 10% Extraprostatic Extension (EPE): Not identified Urinary Bladder Neck Invasion: Not identified Seminal Vesicle Invasion: Not identified Treatment Effect: No known presurgical therapy Lymphovascular Invasion: Not Identified Perineural Invasion: Present Margins Margins: Uninvolved by invasive carcinoma Lymph Nodes Number of Lymph Nodes Involved: 0 Number of Lymph Nodes Examined: 8 Pathologic Stage Classification (pTNM, AJCC 8th Edition) Primary Tumor (pT): pT2 Regional Lymph Nodes (pN): pN0 Labs: Recent Results (from the past 72 hour(s)) Testosterone, total Result Value Ref Range Testo Total 5.15 1.93 - 7.40 ng/mL Comprehensive metabolic panel (non-fasting) Result Value Ref Range Glucose Lvl 84 65 - 199 mg/dL BUN 11 10 - 20 mg/dL Creatinine 0.97 0.80 - 1.50 mg/dL Sodium 139 135 - 145 mmol/L Potassium 4.2 3.5 - 5.0 mmol/L Chloride 104 98 - 107 mmol/L CO2 28 22 - 31 mmol/L Anion Gap 7 5 - 15 mmol/L Calcium 9.6 8.5 - 10.5 mg/dL Total Protein 6.3 6.1 - 8.0 g/dL Albumin 4.3 3.2 - 5.2 g/dL AST 14 0 - 39 unit/L ALT 15 0 - 55 unit/L Alk Phos 68 40 - 130 unit/L Total Bilirubin 0.7 0.2 - 1.3 mg/dL Estimated GFR 81 >=60 mL/min/1.73 m?? PSA (Ultrasensitive) Result Value Ref Range PSA Total (Ultrasensitive) <0.01 0.00 - 4.00 ng/mL Hemogram Result Value Ref Range WBC 4.0 4.0 - 9.5 x10(3)/mcL RBC 4.42 (L) 4.58 - 5.54 x10(6)/mcL Hemoglobin 13.8 13.7 - 16.5 g/dL Hematocrit 40.9 40.5 - 48.5 % MCV 92.5 82.9 - 93.1 fL MCH 31.2 27.5 - 32.1 pg MCHC 33.7 32.0 - 35.7 g/dL Platelets 166 145 - 357 x10(3)/mcL RDWSD 47.8 (H) 36.0 - 45.0 fL RDWCV 14.1 (H) 11.4 - 13.8 % MPV 9.4 7.6 - 12.9 fL nRBC % Auto 0.0 % nRBC Abs Auto 0.000 0.000 - 0.000 x10(3)/mcL Differential, Automated Result Value Ref Range Neutrophils % 60.3 % Neutr Abs (ANC) 2.42 1.70 - 6.10 x10(3)/mcL Lymphocytes % 28.1 % Lymphocytes Abs 1.1 0.9 - 3.2 x10(3)/mcL Monocytes % 9.0 % Monocyte Abs 0.4 0.3 - 0.9 x10(3)/mcL Eosinophils % 1.7 % Eosinophils Abs 0.1 0.0 - 0.4 x10(3)/mcL Basophils % 0.7 % Basophils Abs 0.0 0.0 - 0.1 x10(3)/mcL Immature Gran % 0.20 % Mahsa Gran Abs 0.01 0.00 - 0.04 x10(3)/mcL PSA testosteron 07/16/23 <0.01 5.15 04/18/23 <0.01 <0.12 01/22/23 <0.01 11/20/22 <0.01 10/14/22 0.064 10/14/22 PSA 0.064 Recent PSA history: 06/23/2019 0.02 10/06/2019 <0.01 01/03/2020 <0.01 04/20/2020 0.02 08/29/2020 0.05 11/03/2020 0.09 01/08/2021 0.14 02/07/2021 0.172 05/07/2021 0.253 Imagin01/19/23 CT chest PE call: IMPRESSION No pulmonary embolism or acute cardiopulmonary abnormality. 07/12/2021 lumbar spine MRI: IMPRESSION No evidence of osseous metastasis in the lumbar spine. Mild lumbar spondylosis as above, similar to prior exam. PSMA-PET, 06/29/21 ([facility] reading): 1. Mildly avid bilateral subcentimeter external iliac lymph nodes and suggestion of larger avid right external iliac lymph node, difficult to visualize on this non-contrast enhanced CT portion of thestudy, as above, concerning for metastases. 2. Mildly avid focus in the right posterior region of L2 vertebral body/pedicle without CT correlate that nonetheless raises concern for a metastatic deposit. 12/08/2020 total spine MRI: IMPRESSION No osseous metastatic disease identified in the spine. 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 Mr. Mckeon was initially diagnosed with high risk prostate cancer in 2019. He underwent radical prostatectomy. PSA has been slowly rising and reached level of biochemical recurrence. He followed with Dr. White. He obtained second opinion Dr. Leonid Tipton and Dr. Desai, at [facility]. Had a restaging PSM a PET scan which demonstrated mildly avid bilateral subcentimeter external iliac lymph nodes and suggestion of larger avid right external iliac lymph node, difficult to visualize on this non- contrast enhanced CT portion of the study, as above, concerning for metastases. MRI of lumbar spine was negative for metastatic disease. Following the MRI, per the patient he has been in communication with Dr. Dseai, who suggested an aggressive ADT treatment course including two-years of abiraterone- based therapy. He discussed with Dr. Tipton concurrent radiation therapy with 6 months of ADT. We discussed rationale for treatment with radiation therapy and ADT either short-term 4-6 months onlong-term 2 to 3 years for metastatic prostate cancer to regional lymph nodes. We discussed prognosis of lymph node positive disease with median survival between 6 and 8 years. We talk about benefitsand risks of secondary hormonal therapy with abiraterone plus prednisone. We discussed side effectsof androgen deprivation therapy and abiraterone/prednisone. He is leaning toward more aggressive approach with salvage radiation therapy plus ADT and abiraterone. He wants to think about his option. He will let us know if he decides to proceed with treatment at [facility]. I am happy to see him on as-needed basis. 11/20/22 Mr. Mckeon followed with urologist for Eligard injection and with medical oncologist at [facility] but his oncologist left. He would like to follow-up with us. PSA is undetectable. He is currently on treatment with leuprolide 22.5 mg every 3 months and abiraterone 1000 mg and prednisone 5 mg a day. He noticed shortness ofbreath, worsening of his fatigue and elevated blood pressure Eliquis pounding heart about 2-3 weeksago. The symptoms can be related to abiraterone which has some known cardiac toxicity. He has appointment with ux lead in November. We discussed holding off abiraterone and prednisone to see if the symptoms are resolved off medication. He is anxious as he worried about possible cancer recurrence. I reassured him that he is doing very well with oncological standpoint and we can restart abiraterone and prednisone if necessary. So I recommend to hold abiraterone and prednisone for 2 months and see him back with blood work and PSMA PET scan He will see ux lead in November 01/22/23 he continues to follow with medical oncologist Dr. Sary Desai at [facility] and discussed the options (copied form Dr. Desai notes) : - Continuing ADT and abiraterone/prednisone for total of 2 years. This was our initial plan and could potentially decrease his chance of recurrence, although also would have greater risk for ongoing side effects. -Stopping abiraterone and prednisone but continuing ADT. This could give him some relief from side effects, although we discussed that given the significant side effect overlap between abiraterone and ADT, it is not definite that he would notice a major difference. -Stopping abiraterone, prednisone, and ADT. We discussed that it is unknown whether there is a difference in recurrence risk between stopping at 14 months versus stopping at 2 years. Overall, given his [place] 9 disease and jose metastasis the risk of eventual cancer recurrence is significant. If the cancer does recur, he is likely to need lifelong systemic therapy. -Replacing his current systemic therapy with an advanced androgen pathway inhibitor. This could include enzalutamide, apalutamide, or darolutamide. There is less data for this approach but would probably also be better tolerated and would allow for faster testosterone recovery. He would like to d/c abiraterone/prednisone. His PSA is undetectable. Ken is doing well with oncological standpoint. I recommend to continue his ADT for total of 2 years. He received androgen deprivation with local urologist. I will see him back in 3 months with blood work. 04/18/23 he has been off abiraterone/prednisone and leuprolide for about 5 months. Still complains of hot flashes and fatigue. PSMA PET scan is negative for any signs of disease. PSA is undetectable. Testosterone is still in castrate range. He is doing very well with oncological standpoint. We will continue to monitor him. We will see him back in 3 months with blood work only 07/16/2023 PSA remains undetectable. Testosterone not covered to normal level. Clinically, he is doing well. Will continue observation. Will see him back with blood work in 3 months. Plan: 1. Next visit in 3 months with CBC, CMP, PSA, testosterone This encounter was primarily counseling-based (>50 % of total time) with total time of 25 minutes, of which 15 minutes was spent with the patient/family discussing: * Diagnostic/test results and/or recommendations for additional diagnostic or confirmatory studies; * Prognosis - related of the diagnosis/stage of the disease and course of treatment; * Risks and benefits of pertinent management and treatment options; * Instructions for disease management and the importance of compliance with recommended treatment; * Risk factor reduction, including additional screening and/or surveillance studies, * Patient and family education, answering questions/concerns. documented in this encounter Plan of Treatment Upcoming Encounters Date Type Department Care Team (Late st Contact Info) Description 12/15/2024 11:30 AM EDT Office [place] [address] Charline Ziegler MD [facility] [place] [address] Scheduled Orders Name Type Priority Associated Diagnoses Orde r Schedule CBC (with Diff) Lab Routine Prostate cancer metastatic to intrapelvic lymph node Every 3 months for 4 Occurrences starting 07/16/2023 until 07/16/2024, 1 completed Comprehensive metabolic panel (non-fasting) Lab Routine Prostate cancer metastatic to intrapelvic lymph node Every 3 months for 4 Occurrences starting 07/16/2023 until 07/16/2024, 1 completed Testosterone, total Lab Routine Prostate cancer metastatic to intrapelvic lymph node Every 3 months for 4 Occurrences starting 07/16/2023 until 07/15/2024, 1 completed PSA (Ultrasensitive) Lab Routine Prostate cancer metastatic to intrapelvic lymph node Every 3 months for 4 Occurrences starting 07/16/2023 until 07/16/2024, 1 completed documented as of this encounter Results * PSA (Ultrasensitive) (01/28/2024 11:14 AM EDT) Prostate Specific Antigen (Ultrasensitive) <0.01 0.00 - 4.00 ng/mL [facility] Comment: PLEASE NOTE: The above [...] Resulting Agency Comment Spec In Lab Mike Lousie MD CHEMISTRY ORDERABLES [facility] [place] [address] * Testosterone, total (01/28/2024 11:14 AM EDT) Testosterone 4.63 1.93 - 7.40 ng/mL [facility] Comment: Pediatric Reference Ranges: ? [...] Louise MD CHEMISTRY ORDERABLES Performing Organization Address City/State/[facility] Co de Phone Number [facility] [place] [address] * Comprehensive metabolic panel (non-fasting) (01/28/2024 11:14 AM EDT) Glucose 97 65 - 199 mg/dL [facility] Comment:Diabetes: >=200 mg/d L plus symptoms Blood Urea Nitrogen 13 10 - 20 mg/dL [facility] Creatinine 0.98 0.80 - 1.50 mg/dL [facility] Sodium 141 135 - 145 mmol/L [facility] Potassium 4.6 3.5 - 5.0 mmol/L [facility] Comment: Please note: ??Patients with WBC >100,000 may have falsely elevated Potassium levels. ??For accurate Potassium quantification in these patients send serum separator tube (gold top) for subsequent determinations. ??Contact the Clinical Chemistry Laboratory if there are any questions. Chloride 105 98 - 107 mmol/L [facility] Carbon Dioxide 27 22 - 31 mmol/L [facility] Anion Gap 9 5 - 15 mmol/L [facility] Calcium 9.8 8.5 - 10.5 mg/dL [facility] Protein, Total 6.5 6.1 - 8.0 g/dL [facility] Albumin 4.4 3.2 - 5.2 g/dL [facility] Aspartate Aminotransferase 17 0 - 39 unit/L [facility] Alanine Aminotransferase 12 0 - 55 unit/L [facility] Alkaline Phosphatase 51 40 - 130 unit/L [facility] Bilirubin, Total 0.9 0.2 - 1.3 mg/dL [facility] Est Glomerular Filtration Rate 79 >=60 mL/min/1. 73 m?? [facility] Comment: This patient's estimated GFR [...] Louise MD CHEMISTRY ORDERABLES Performing Organization Address City/State/[facility] Co de Phone Number [facility] [place] [address] documented in this encounter Visit Diagnoses Diagnosis Prostate cancer metastatic to intrapelvic lymph node- Primary documented in this encounter Care Teams Media Manager Relationship Specialty Start Date End Date Reji Adams MD [facility] GENERAL [place] [address] PCP - General General Internal Medicine 07/13/15 documented as of this encounter
--- OUTSIDE RECORDS SUMMARY | 2024-07-09 11:04 | XMS_ITS | Encounter Summary ---
Author Organization [facility] [place] [address] Care Team Providers Care Debarker Operator Name Role Phone Reji Adams MD Primary Care Provider [phone] Encounter Details Date Type Department Care Team (Late st Contact Info) Description 10/15/2023 Telephone Internal Medicine at [address] [address] Geraldine Haines Social History Tobacco Use Types Packs/Day Years [...] encounter Miscellaneous Notes * Telephone Encounter - Geralidne Haines - 10/15/2023 9:11 AM EDT 1st attempt to contact Pt at Reason for call: Reschedule same day What type of visit is needed: SD [x] Left Message for Pt to return call to the Office [x] [facility] ok to schedule Appt Notes: Reschedule with Dr. Palma, or with a provider at [x] [facility] Sent documented in this encounter Plan of Treatment Upcoming Encounters Date Type Department Care Team (Late st Contact Info) Description 12/15/2024 11:30 AM EDT Office [place] [address] Charline Ziegler MD [facility] [place] [address] documented as of this encounter Visit Diagnoses Not on filedocumented in this encounter Care Teams Debarker Operator Relationship Specialty Start Date End Date Reji Adams MD [facility] [place] [address] PCP - General General Internal Medicine 07/13/15 documented as of this encounter
--- OUTSIDE RECORDS SUMMARY | 2024-07-09 11:04 | XMS_ITS | Encounter Summary ---
Author Organization [facility] Address [facility] [place] [address] Care Team Providers Care Financial Secretary Name Role Phone Reji Adams MD Primary Care Provider [phone] Reason for Visit * Reason Onset Date Comments Medication Refill 09/26/2023 Encounter Details Date Type Department Care Team (Late st Contact Info) Description 09/26/2023 Refill Internal Medicine at [address] [address] Reji Adams MD [facility] [place] [address] Anxiety Social History Tobacco Use Types Packs/Day [...] encounter Miscellaneous Notes * Telephone Encounter - Aimee Camilo LPN - 09/26/2023 7:17 AM EST Prescription Renewal Request Name: Ken Mckeon : 1945 Prescription(s) Requested: Requested Prescriptions Pending Prescriptions Disp Refills ALPRAZolam (Xanax) 0.25 mg tablet 70 tablet 0 Sig: Take 1 tablet by mouth 3 times daily as needed for Anxiety. Forwarding to [employer] med request documented in this encounter Plan of Treatment Upcoming Encounters Date Type Department Care Team (Late st Contact Info) Description 12/15/2024 11:30 AM EDT Office Visit [place] [address] Charline Ziegler MD [facility] [place] [address] documented as of this encounter Visit Diagnoses Diagnosis Anxiety Anxiety state, unspecified documented in this encounter Care Teams Financial Secretary Relationship Specialty Start Date End Date Reji Adams MD [facility] [place] [address] PCP - General General Internal Medicine 07/13/15 documented as of this encounter
--- OUTSIDE RECORDS SUMMARY | 2024-07-09 11:04 | XMS_ITS | Encounter Summary ---
Author Organization [facility] Address [facility] [place] [address] Care Team Providers Care Debt Management Counselor Name Role Phone Reji Adams MD Primary Care Provider [phone] Reason for Referral * Consultation (Routine) - Closed Specialty Diagnoses / Procedures Referred By Contsushma t Referred To Contact Cardiology Diagnoses RBBB Palpitations with PAC's Known RBBB. Previous Zio patch last year. No other symptoms. PMH recurrent metastatic prostate cancer, HLP, and PSVT, FHX premature CAD. Formerly followed @[facility] . Hari Yu MD [facility] [place] [address] [facility] Card[facility] [address] [place] [phone] Referral ID Status Reason Start Date Expiration Date V isits Requested Visits Authorized [id number] Closed Consult, Test & Treat 06/27/2023 06/26/2024 1 1 Reason for Visit * Reason Comments Palpitations Encounter Details Date Type Department Care Team (Late st Contact Info) Description 06/27/2023 5:19 PM EST - 06/27/2023 6:57 PM EST [place] [address] Tressa Craven MD [facility] EMERGENCY [place] [address] RBBB Discharge Disposition: Home Social History Tobacco Use [...] Sign Reading Time Taken Comments Blood Pressure 118/76 06/27/2023 6:55 PM EST Pulse 75 06/27/2023 6:55 PM EST Temperature 36.4 ??C (97.5 ??F) 06/27/2023 2:59 PM ES T Respiratory Rate 16 06/27/2023 6:55 PM EST Oxygen Saturation 99% 06/27/2023 6:55 PM EST Inhaled Oxygen Concentration - - Weight 85.3 kg (188 lb) 06/27/2023 2:59 PM EST Height - - Body Mass Index 26.15 04/22/2023 3:03 PM EDT documented in this encounter Discharge Instructions * Discharge Instructions* Hari Yu MD - 06/27/2023 6:20 PM EST You were seen in the emergency department for heart palpitations. We discussed the most likely diagnosis and reviewed the results of any appropriate labs or imaging tests that were ordered during your stay. You should follow up with your PCP within 1 week for re-evaluation and to make sure you are improving. Please call your PCP to set up an appointment. We have sent a referral to [facility] cardiology who should call you to follow-up with appointment. We recommend you have the palpitations further worked up. If they do not call you you can call them in the next couple days at [phone] Please return to the emergency department if you develop any fevers, chest pain, shortness of breath, feeling like you are going to pass out or passing out, unusual weakness or numbness, blurred or double vision, headache, or have worsening of your current symptoms or develop new symptoms that are concerning to you and require immediate attention. It was a pleasure providing care to you at [facility]! documented in this encounter Medications at Time of Discharge Medication Sig Dispensed Refills Start Date End Date polyethylene glycoL (Miralax) 17 gram/dose Powder Take 17 g by mouth daily. acetaminophen (TYLENOL) 650 mg Tablet Sustained Release Take 650 mg by mouth every 8 hours as needed for Pain. Do not exceed 6 tabs in 24 hours multivitamin (THERAGRAN) tablet Take 1 tablet by mouth daily. ALPRAZolam (Xanax) 0.25 mg tabletIndications:Anxiet y Take 1 tablet by mouth 3 times daily as needed for Anxiety. 70 tablet 06/03/2023 06/30/2023 pravastatin (Pravachol) 20 mg tablet Take 1 tablet by mouth once daily 90 tablet 04/28/2023 07/29/2023 triamcinolone acetonide (NASACORT ALLERGY NASL) by Nasal route daily. PRN 12/11/2023 documented as of this encounter ED Notes * Hari uY MD - 06/27/2023 6:20 PM EST ED RESIDENT NOTE Patient: Ken Mckeon Age (): 77 y.o. (1945) SUBJECTIVE HPI: Ken Mckeon is a 77 y.o. adult who presented to the ED for palpitations. Patient stated he had sudden onset palpitations starting 2 days ago when he was driving. He has been more or less constant however they did stop last night when patient took his nightly Xanax for sleep. But then returned inthe morning. Patient denies chest pain, nausea, vomiting, syncope, presyncope, dizziness, abdominalpain. Patient has previous history of palpitations although states he has not had any in the last severalmonths. Patient has history of known right bundle branch block and possible additional block other is not sure what this heart block would be. Patient has no previous history of ACS and does not haveany stents in place. Patient does take a statin for hyperlipidemia. History obtained from patient ROS as per HPI. Past Medical and Surgical Histories, Social History, Medications, Allergies were reviewed in the chart. Pt was seen under the supervision of an attending physician. OBJECTIVE Vital Signs: ED Triage Vitals BP: 107/78 [06/27/23 1501] Heart Rate: 78 [06/27/23 145] Resp: 16 [06/27/231458] Temp: 36.4 ??C (97.5 ??F) [06/27/23 145] Temp src: Temporal [06/27/231458] SpO2: 99 % [06/27/231458] O2 Device: RA [06/27/231458] O2 Flow Rate (L/min): n/a Physical Exam Vitals and nursing note reviewed. Constitutional: General: He is not in acute distress. Appearance: Normal appearance. He is normal weight. He is not ill-appearing. HENT: Head: Normocephalic and atraumatic. Nose: Nose normal. No congestion or rhinorrhea. Mouth/Throat: Mouth: Mucous membranes are moist. Pharynx: Oropharynx is clear. Eyes: Extraocular Movements: Extraocular movements intact. Pupils: Pupils are equal, round, and reactive to light. Cardiovascular: Rate and Rhythm: Normal rate and regular rhythm. Pulses: Normal pulses. Heart sounds: Normal heart sounds, S1 normal and S2 normal. No murmur heard. No friction rub. No gallop. Pulmonary: Effort: Pulmonary effort is normal. No respiratory distress. Breath sounds: Normal breath sounds. Abdominal: General: Abdomen is flat. Palpations: Abdomen is soft. Tenderness: There is no abdominal tenderness. Musculoskeletal: General: No swelling or tenderness. Normal range of motion. Cervical back: Normal range of motion. No rigidity or tenderness. Skin: General: Skin is warm. Capillary Refill: Capillary refill takes less than 2 seconds. Findings: No bruising, erythema, lesion or rash. Neurological: General: No focal deficit present. Mental Status: He is alert and oriented to person, place, and time. Motor: No weakness. Gait: Gait normal. Psychiatric: Mood and Affect: Mood normal. Speech: Speech normal. Behavior: Behavior normal. Thought Content: Thought content normal. Judgment: Judgment normal. Labs Reviewed HEMOGRAM - Abnormal; Notable for the following components: Result Value RDWSD 47.7 (*) RDWCV 14.0 (*) All other components within normal limits CBC (WITH DIFF) BASIC METABOLIC PANEL (NON-FASTING) TROPONIN TSH CASCADE DIFFERENTIAL, AUTOMATED BLUE TUBE HOLD REQUEST FOR BLOOD GAS DRAW ([facility]) I have reviewed imaging, which is significant for: No orders to display ASSESSMENT & PLAN ED Course MDM: Patient's EKG was obtained which shows evidence of sinus rhythm with P waves present. Patient has somewhat grouped beating as well as occasional PACs noted. 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 There is no evidence of ischemic changes on EKG including ST elevations, new T wave inversions prior. This EKG is not consistent with atrial fibrillation or atrial flutter given P wave before every beat and lack ofirregularly irregular beat. Palpitations may be secondary to patient's intermittent PACs. However patient requires further outpatient follow-up with cardiology to further characterize these symptoms. In the setting of a lack ofsyncope, chest pain, other symptoms there is low concern for ACS, aortic dissection, pericardial effusion, pneumonia as cause of his intermittent palpitations. Patient electrolytes found to be within normal range sodium of 139, potassium 3.9, calcium of 1.2. Patient found to have a normal TSH. Troponins trending not necessary in the setting of palpitation without chest pain or other risk for ACS. Normal CBC Close return precautions were discussed with patient including syncope, chest pain, back pain, nausea/vomiting, shortness of breath. The visit findings, diagnosis, and care plan were discussed with the patient. The diagnosis and care plans discussions were outlined in the discharge instructions. The patient expressed understanding of the details of the visit, the return precautions and that he should returnto the ER at any time for worsening symptoms, new symptoms, or other concerns. he agrees with the follow- up plan. Hari Yu M.D. Emergency Medicine Resident, PGY-1 06/27/23 6:20 PM Hari Yu MD Resident 06/27/23 8467 Associated attestation - Tressa Craven MD - 06/27/2023 11:58 PM EST ED ATTENDING ATTESTATION NOTE The patient was seen in conjunction with the resident physician. I have independently performed thekey portions of the history and physical exam. I have reviewed the diagnostic studies including labs, imaging studies and EKGs. I have discussed the details of the case with the resident and agree with the assessment and plan as described in the resident note unless noted below or in my separate note. * Tressa Craven MD - 06/27/2023 5:34 PM EST ED Attending Note HPI: Ken Mckeon is a 77 y.o. adult who presents to the Emergency Department with 2 days of palpitations intermittently, denies syncope fevers chills cp sob or abd pain. He took his xanax the night before with improvement. He has a previous h/o palpitations. Past Medical History: Diagnosis Date BPH (benign prostatic hyperplasia) Neck pain 08/24/2012 OA (osteoarthritis) of knee right Spinal cord injury at 2016 ROS as per HPI Vitals: ED Triage Vitals BP: 107/78 [06/27/23 1501] Heart Rate: 78 [06/27/23 1459] Resp: 16 [06/27/23 1459] Temp: 36.4 ??C (97.5 ??F) [06/27/231458] Temp src: Temporal [06/27/231458] SpO2: 99 % [06/27/231458] O2 Device: RA [06/27/231458] O2 Flow Rate (L/min): n/a Physical Exam Vitals and nursing note reviewed. Constitutional: Appearance: He is well-developed. HENT: Head: Normocephalic and atraumatic. Cardiovascular: Rate and Rhythm: Normal rate and regular rhythm. Pulses: Normal pulses. Heart sounds: Normal heart sounds. Pulmonary: Effort: Pulmonary effort is normal. No respiratory distress. Breath sounds: Normal breath sounds. Abdominal: General: There is no distension. Palpations: Abdomen is soft. Tenderness: There is no abdominal tenderness. Musculoskeletal: General: Normal range of motion. Cervical back: Normal range of motion and neck supple. Skin: General: Skin is warm and dry. Neurological: Mental Status: He is alert and oriented to person, place, and time. Comments: [place] Psychiatric: Behavior: Behavior normal. Thought Content: Thought content normal. Judgment: Judgment normal. ED Course: I have reviewed labs and imaging, images and available reports, and they are significant for: No orders to display ED Course as of 06/27/231733Jun 27, 2023 173 EKG sinus rhythm with premature supraventricular complexes with a right bundle branch block and nonspecific ST-T wave changes similar to old Assessment and Plan: 77 y.o. adult with history of palpitations here with 3 days of palpitations intermittent with no associated symptoms. He only drinks 1 bottle of Diet Coke a day with no other stimulant use. He is well-appearing and EKG shows a sinus rhythm with likely PVCs or premature supraventricular complexes. TSH is reassuring labs are reassuring. Patiently discharged home with recommendations for close PCP follow-up to discuss a Holter monitor although he states he had one 1 year ago and we will also give more referral to cardiology given that he is quite symptomatic from these. Patient understands return for worsening palpitations dizziness or any concerning symptoms. Did this case involve critical care? No The visit findings, diagnosis, and care plan were discussed with the patient. The diagnosis and care plans discussions were outlined in the discharge instructions. The patient expressed understanding of the details of the visit, the return precautions and that he should returnto the ER at any time for worsening symptoms, new symptoms, or other concerns. he agrees with the follow- up plan. Tressa Craven MD 06/27/23 1826 * Ace Pelaez PA - 06/27/2023 2:58 PM EST 77 y/o M with hx of SVT presents to the ED with palpitations for the last two days. No chest pain or shortness of breath. He has felt fatigued. No fevers or chills. Symptoms are constant and do not got away. Well appearing in triage. HR in the 60's. Cardiac labs ordered. Ace Pelaez PA 06/27/23 1500 documented in this encounter Plan of Treatment Upcoming Encounters Date Type Department Care Team (Late st Contact Info) Description 12/15/2024 11:30 AM EDT Office [place] [address] Charline Ziegler MD [facility] [place] [address] Scheduled Referrals Name Type Priority Associated Diagnoses Order Schedule Referral to Cardiology Outpatient Referral Routine RBBB Ordered: 06/27/2023 documented as of this encounter Procedures Procedure Name Priority Date/Time Associated Diagnosis Comments BLOOD GAS VENOUS POC Routine 06/27/2023 6:23 PM EST EKG 12-LEAD STAT 06/27/2023 3:06 PM EST TROPONIN - SERIES STAT 06/27/2023 1:1 0 PM EST TSH CASCADE STAT 06/27/2023 1:10 PM EST HEMOGRAM STAT 06/27/2023 1:10 PM EST DIFFERENTIAL, AUTOMATED STAT 06/27/2023 1:10 PM EST BLUE TUBE HOLD STAT 06/27/2023 1:10 PM EST CBC (WITH DIFF) STAT 06/27/2023 1:10 PM EST BASIC METABOLIC PANEL STAT 06/27/2023 1:10 PM EST documented in this encounter Results * BLOOD GAS 2 VENOUS (06/27/2023 6:23 PM EST) pH, Venous 7.38 7.32 - 7.42 [facility] PCO2, Venous 44 41 - 51 mmHg [facility] PO2, Venous 33 25 - 40 mmHg [facility] Bicarbonate, Venous 25.4 mmol/L [facility] Base Excess, Venous 0.3 mmol/L [facility] Hgb Blood Gas 14.0 13.7 - 16.5 g/dL [facility] Oxyhemoglobin, Venous 63.1 % [facility] Carboxyhemoglob in, Venous 1.6 % [facility] Comment: Nonsmokers: 0.5-1.5% COHB Smokers: Variable, but usually less than 10% Toxic: 20-30% COHB Lethal: Greater than 60% COHB Methemoglobin, Venous 0.2 <=1.5 % [facility] Na Whole Blood 139 135 - 145 mmol/L [facility] K Whole Blood 3.9 3.5 - 5.0 mmol/L [facility] Comment: Please note: Patients with WBC >100,000 may have falsely elevated Potassium levels. Contact the Clinical Chemistry Laboratory if there are any questions. ICa Whole Blood 1.20 1.15 - 1.33 mmol/L [facility] Comment: Note: ??Total bilirubin higher than 20 mg/dL may lead to falsely low ionized calcium. CL Whole Blood 102 98 - 107 mmol/L [facility] Gluc Whole Bld 87 65 - 199 mg/dL [facility] Comment:Diabetes: >=200 mg/d L plus symptoms Lactate WB 1.1 0.5 - 2.2 mmol/L [facility] Blood Gas Source Venous [facility] Blood 06/27/2023 6:23 PM EST 06/27/2023 6:23 PM EST Tressa Rodriguez MD POINT OF CARE TEST O RDERABLES [facility] [place] [address] * EKG 12 Lead (06/27/2023 3:06 PM EST) Pathologist [facility] Ventricular rate 73 BPM MUSE SYSTEM Atrial Rate 73 BPM MUSE SYSTEM P-R Interval 162 ms MUSE SYSTEM QRS Duration 154 ms MUSE SYSTEM Q-T Interval 424 ms MUSE SYSTEM QTC Calculated (Bezet) 467 ms MUSE SYSTEM Calculated P Penelope 78 degrees MUSE SYSTEM Calculated R Penelope -76 degrees MUSE SYSTEM Calculated T Penelope 73 degrees MUSE SYSTEM INTERPRETATION Sinus rhythm with Premature supraventricular complexes Right bundle branch block Left anterior fascicular block Bifascicular block Left ventricular hypertrophy with repolarization abnormality ( R in aVL ) Possible ??Anteroseptal infarct (cited on or before 27-JUN-2023) Abnormal ECG When compared with ECG of 30-NOV-2020 07:28, Premature supraventricular complexes are now Present Confirmed by MD Onesimo, Tomas ([id number]) on 06/30/2023 1:34:31 PM MUSE SYSTEM 06/27/2023 3:06 PM EST 06/30/2023 1:34 PM EST Pia Mcclain MD ECG ORDERABLES MUSE SYSTEM * Blue Tube HOLD (06/27/2023 1:10 PM EST) [facility] Blue Hold Sample in lab. [facility] Blood Venous Draw / Unknown 06/27/2023 1:10 PM EST 06/27/2023 4:39 PM EST Ace GUTIERREZ HEMATOLOGY ORDERABLE S [facility] [place] [address] * Differential, Automated (06/27/2023 1:10 PM EST) Pathologist [facility] Neutrophil % 70.2 % [facility] Neutrophil Absolute 3.86 1.70 - 6.10 x10(3)/[facility] Lymph % 20.5 % [facility] Lymphocytes Abs 1.1 0.9 - 3.2 x10(3)/[facility] Monocyte % 7.5 % [facility] Monocyte Abs 0.4 0.3 - 0.9 x10(3)/[facility] Eos % 1.1 % [facility] Eosinophils Abs 0.1 0.0 - 0.4 x10(3)/[facility] Basophil % 0.5 % [facility] Baso Absolute 0.0 0.0 - 0.1 x10(3)/[facility] Immature Gran % 0.20 % [facility] Comment: Immature granulocytes(IG's)percentage and absolute count will include metamyelocytes, myelocytes, and promyelocytes. Blood smears from CBCs yielding IG's will be scanned manually for concordance. If this scan disagrees with the automated IG or if promyelocytes are noted, a manual differential will be performed. Immature Gran Absolute 0.01 0.00 - 0.04 x10(3)/[facility] Blood 06/27/2023 1:10 PM EST 06/27/2023 4:37 PM EST Narrative Resulting Agency Comment Spec In Lab Ace GUTIERREZ HEMATOLOGY ORDERABLE S [facility] [place] [address] * (ABNORMAL) Hemogram (06/27/2023 1:10 PM EST) White Blood Cell 5.5 4.0 - 9.5 x10(3)/mc L [facility] Red Blood Cell 4.61 4.58 - 5.54 x10(6)/ L [facility] Hemoglobin 14.6 13.7 - 16.5 g/dL [facility] Hematocrit 42.7 40.5 - 48.5 % [facility] Mean Cell Volume 92.6 82.9 - 93.1 fL [facility] Mean Cell Hemoglobin 31.7 27.5 - 32.1 pg [facility] Mean Cell Hemoglobin Concentration 34.2 32.0 - 35.7 g/dL [facility] Platelet 169 145 - 357 x10(3)/mc L [facility] RDW Standard Deviation 47.7(H) 36.0 - 45.0 fL [facility] RDW coefficient of variation 14.0(H) 11.4 - 13.8 % [facility] Mean Platelet Volume 10.1 7.6 - 12.9 fL [facility] NRBC% auto 0.0 % [facility] NRBC Absolute 0.000 0.000 - 0.000 x10(3)/mc L [facility] Blood 06/27/2023 1:10 PM EST 06/27/2023 4:37 PM EST Narrative Resulting Agency Comment Spec In Lab Ace GUTIERREZ HEMATOLOGY ORDERABLE S Performing Organization Address City/[facility]/ZIP Co de Phone Number [facility] [place] [address] * TSH [place] (06/27/2023 1:10 PM EST) Thyroid Stimulating Hormone 1.49 0.27 - 4.20 mcIU/mL [facility] Comment: Reference Interval (mcIU/mL): Females: ??First Trimester: 0.23-3.88 ??Second Trimester: 0.22-3.90 ??Third Trimester: 0.44-4.66 Blood 06/27/2023 1:10 PM EST 06/27/2023 4:37 PM EST Narrative Resulting Agency Comment Spec In Lab Pia Mcclain MD CHEMISTRY ORDERABLES [facility] [place] [address] * Troponin (06/27/2023 1:10 PM EST) Troponin-T, High Sensitivity 10 <=22 ng/L [facility] Comment: This patient's troponin T concentration was determined using the Tung 5th Generation troponin T assay. The 99th percentile for Troponin T for this test is 14 ng/L for females, and 22 ng/L for males. According to the fourth universal definition of myocardial infarction, the term acute myocardial infarction should be used when there is acute myocardial injury with clinical evidence of acute myocardial ischemia and with detection of a rise and/or fall of cardiac troponin values with at least one value above the 99th percentile and at least one of the following: - Symptoms of myocardial ischemia; - New ischemic ECG changes; - Development of pathological Q waves; - Imaging evidence of new loss of viable myocardium or new regional wall motion abnormality in a pattern consistent with an ischemic etiology; - Identification of a coronary thrombus by angiography or autopsy (not for type 2 or 3 MIs) Serial measurement of troponin and the change in troponin concentration over time (delta) is crucial for the diagnosis of acute myocardial infarction. Guidance on the interpretation of the new 5th Generation Troponin T values and the delta troponin value can be found in the [facility] Laboratory Test Catalog Troponin - [facility] Test Catalog Reference: Fourth [place] Definition of Myocardial Infarction. Journal of the [place] [employer] 2018;72:8161-3206 Blood 06/27/2023 1:10 PM EST 06/27/2023 4:37 PM EST Narrative Resulting Agency Comment Spec In Lab Pia Mcclain MD CHEMISTRY ORDERABLES [facility] [place] [address] * Basic Metabolic Panel (non-fasting) (06/27/2023 1:10 PM EST) Glucose Not Perf 65 - 199 [facility] Comment: Sample improperly processed prior to receipt. Diabetes: >=200 mg/dL plus symptoms Blood Urea Nitrogen 19 10 - 20 mg/dL [facility] Creatinine 1.06 0.80 - 1.50 mg/dL [facility] Sodium 139 135 - 145 mmol/L [facility] Potassium Not Perf 3.5 - 5.0 [facility] Comment: Sample improperly processed prior to receipt. Please note: ??Patients with WBC >100,000 may have falsely elevated Potassium levels. ??For accurate Potassium quantification in these patients send serum separator tube (gold top) for subsequent determinations. ??Contact the Clinical Chemistry Laboratory if there are any questions. Chloride 103 98 - 107 mmol/L [facility] Carbon Dioxide 26 22 - 31 mmol/L [facility] Anion Gap 10 5 - 15 mmol/L [facility] Calcium 9.4 8.5 - 10.5 mg/dL [facility] Est Glomerular Filtration Rate 73 >=60 mL/min/1. 73 m?? [facility] Comment: This patient's estimated GFR [...] and symptoms in addition to eGFR. Blood 06/27/2023 1:10 PM EST 06/27/2023 4:37 PM EST Narrative Resulting Agency Comment Spec In Lab Pia Mcclain MD CHEMISTRY ORDERABLES [facility] [place] [id number] documented in this encounter Visit Diagnoses Diagnosis RBBB Right bundle branch block documented in this encounter Care Teams Debt Management Counselor Relationship Specialty Start Date End Date Reji Adams MD [facility] GENER[facility] [place] [address] PCP - General General Internal Medicine 07/13/15 documented as of this encounter
--- OUTSIDE RECORDS SUMMARY | 2024-07-09 11:04 | XMS_ITS | Encounter Summary ---
Author Organization [facility] Address [facility] [place] [address] Care Team Providers Care Mop Machine Operator Name Role Phone Reji Adams MD Primary Care Provider [phone] Reason for Visit * Reason Onset Date Comments Medication Refill 07/28/2023 Encounter Details Date Type Department Care Team (Late st Contact Info) Description 07/28/2023 Refill Internal Medicine at [address] [address] Reji Adams MD [facility] [place] [address] Anxiety Social History Tobacco Use Types Packs/Day [...] encounter Miscellaneous Notes * Telephone Encounter - Slime Ayers - 07/30/2023 3:34 PM EST Patient called to confirm this was requested and let us know that he does not have enough for 3 business days. * Telephone Encounter - Lola Blevins CCMA - 07/30/2023 3:33 PM EST Prescription Renewal Request Name: Ken [...] Date of Last Refill (for each medication): 06/30/23 #70, per pdmp filled 07/03/23 (24 day supply) Medication category requirements (labs etc): 07/28/2023 05/02/2023 03/09/2023 Opioid PDMP [place] PDMP Query Date 07/30/2023 05/02/2023 03/10/2023 [place] PDMP Query Date 07/30/2023 05/02/2023 03/10/2023 [place] PD[place] Query Date 07/30/2023 05/02/2023 03/10/2023 Status of request: Pended Allergies Allergen Reactions Penicillins Anaphylaxis Tongue swelling Betamethasone hiccups after injection Dexamethasone Hiccups after injection Triamcinolone Acetonide Hiccups CANDI Lowery 07/30/23 3:33 PM documented in this encounter Plan of Treatment Upcoming Encounters Date Type Department Care Team (Late st Contact Info) Description 12/15/2024 11:30 AM EDT Office [place] [address] Charline Ziegler MD [facility] [place] [address] documented as of this encounter Visit Diagnoses Diagnosis Anxiety Anxiety state, unspecified documented in this encounter Care Teams Mop Machine Operator Relationship Specialty Start Date End Date Reji Adams MD [facility] [place] [address] PCP - General General Internal Medicine 07/13/15 documented as of this encounter
--- OUTSIDE RECORDS SUMMARY | 2024-07-09 11:04 | XMS_ITS | Encounter Summary ---
Author Organization [facility] [place] [address] Care Team Providers Care Developmental Behavioral Physician Name Role Phone Reji Adams MD Primary Care Provider [phone] Encounter Details Date Type Department Care Team (Latest Contact Info) Description 09/22/2023 Travel Social History Tobacco Use Types Packs/Day [...] 11:30 AM EDT Office [place] [address] Charline Ziegler MD [facility] [place] [address] documented as of this encounter Visit Diagnoses Not on filedocumented in this encounter Care Teams Developmental Behavioral Physician Relationship Specialty Start Date End Date Reji Adams MD [facility] [place] [address] PCP - General General Internal Medicine 07/13/15 documented as of this encounter
--- OUTSIDE RECORDS SUMMARY | 2024-07-09 11:04 | XMS_ITS | Encounter Summary ---
Author Organization [facility] [place] [address] Care Team Providers Care Vocational Examiner Name Role Phone Reji Adams MD Primary Care Provider [phone] Encounter Details Date Type Department Care Team (Latest Contact Info) Description 07/15/2023 10:36 AM EST - 07/15/2023 11:59 PM [facility] Hospital Encounter [place]ology [place] [address] Prostate cancer metastatic to intrapelvic lymph node Discharge Disposition: Home Social History Tobacco Use [...] mortgage or rent on time? Patient refused 12/24/20 21 Number of Places Lived in the Last Year Not on f ile 07/20/2021 In the last 12 months, was t here a time when you did not have a steady place to sleep or slept in a senior living (including now)? Patient refused 07/20/2021 Sex and [...] 11:30 AM EDT Office [place] [address] Charline Ziegler MD [facility] [place] [address] documented as of this encounter Procedures Procedure Name Priority Date/Time Associated Diagnosis Comments HEMOGRAM Routine 07/15/2023 10:44 AM EST Prostate cancer metastatic to intrapelvic lymph node DIFFERENTIAL, AUTOMATED Routine 07/15/2023 10:44 AM EST Prostate cancer metastatic to intrapelvic lymph node CBC (WITH DIFF) Routine 07/15/2023 10:44 AM EST Prostate cancer metastatic to intrapelvic lymph node TESTOSTERONE, TOTAL Routine 07/15/2023 1 0:44 AM EST Prostate cancer metastatic to intrapelvic lymph node PSA (ULTRASENSITIVE) Routine 07/15/2023 10:44 AM EST Prostate cancer metastatic to intrapelvic lymph node COMPREHENSIVE METABOLIC PANEL Routine 07/15/2023 10:44 AM EST Prostate cancer metastatic to intrapelvic lymph node documented in this encounter Results * Differential, Automated (07/15/2023 10:44 AM EST) Neutrophil % 60.3 % [facility] Neutrophil Absolute 2.42 1.70 - 6.10 x10(3)/[facility] Lymph % 28.1 % [facility] Lymphocytes Abs 1.1 0.9 - 3.2 x10(3)/[facility] Monocyte % 9.0 % [facility] Monocyte Abs 0.4 0.3 - 0.9 x10(3)/[facility] Eos % 1.7 % [facility] Eosinophils Abs 0.1 0.0 - 0.4 x10(3)/[facility] Basophil % 0.7 % [facility] Baso Absolute 0.0 0.0 - 0.1 x10(3)/[facility] Immature Gran % 0.20 % [facility] Comment: Immature granulocytes(IG's)percentage and absolute count will include metamyelocytes, myelocytes, and promyelocytes. Blood smears from CBCs yielding IG's will be scanned manually for concordance. If this scan disagrees with the automated IG or if promyelocytes are noted, a manual differential will be performed. Immature Gran Absolute 0.01 0.00 - 0.04 x10(3)/[facility] Blood 07/15/2023 10:4 4 AM EST 07/15/2023 10:56 AM EST Narrative Resulting Agency Comment Spec In Lab Mike Louise MD HEMATOLOGY ORDERABLE S [facility] [place] [address] * (ABNORMAL) Hemogram (07/15/2023 10:44 AM EST) White Blood Cell 4.0 4.0 - 9.5 x10(3)/mc L [facility] Red Blood Cell 4.42(L) 4.58 - 5.54 x10(6)/mc L [facility] Hemoglobin 13.8 13.7 - 16.5 g/dL [facility] Hematocrit 40.9 40.5 - 48.5 % [facility] Mean Cell Volume 92.5 82.9 - 93.1 fL [facility] Mean Cell Hemoglobin 31.2 27.5 - 32.1 pg [facility] Mean Cell Hemoglobin Concentration 33.7 32.0 - 35.7 g/dL [facility] Platelet 166 145 - 357 x10(3)/mc L [facility] RDW Standard Deviation 47.8(H) 36.0 - 45.0 fL [facility] RDW coefficient of variation 14.1(H) 11.4 - 13.8 % [facility] Mean Platelet Volume 9.4 7.6 - 12.9 fL [facility] NRBC% auto 0.0 % [facility] NRBC Absolute 0.000 0.000 - 0.000 x10(3)/mc L [facility] Blood 07/15/2023 10:4 4 AM EST 07/15/2023 10:56 AM EST Narrative Resulting Agency Comment Spec In Lab Mike Louise MD HEMATOLOGY ORDERABLE S Performing Organization Address City/[facility]/ZIP Co de Phone Number [facility] [place] [address] * PSA (Ultrasensitive) (07/15/2023 10:44 AM EST) Pathologist [facility] Prostate Specific Antigen (Ultrasensitive) <0.01 0.00 - 4.00 ng/mL [facility] Comment: PLEASE NOTE: The above reference interval is intended for healthy males with an intact prostate. Values within this reference interval may indicate recurrence in men who have undergone radical prostatectomy. This result was generated using a Tung Johanna immunoassay. ??Results obtained from other methods or manufacturers cannot be used interchangeably with this method. Blood 07/15/2023 10:4 4 AM EST 07/15/2023 10:56 AM EST Narrative Resulting Agency Comment Spec In Lab Mike Louise MD CHEMISTRY ORDERABLES [facility] [place] [address] * Comprehensive metabolic panel (non-fasting) (07/15/2023 10:44 AM EST) Glucose 84 65 - 199 mg/dL [facility] Comment:Diabetes: >=200 mg/d L plus symptoms Blood Urea Nitrogen 11 10 - 20 mg/dL [facility] Creatinine 0.97 0.80 - 1.50 mg/dL [facility] Sodium 139 135 - 145 mmol/L [facility] Potassium 4.2 3.5 - 5.0 mmol/L [facility] Comment: Please note: ??Patients with WBC >100,000 may have falsely elevated Potassium levels. ??For accurate Potassium quantification in these patients send serum separator tube (gold top) for subsequent determinations. ??Contact the Clinical Chemistry Laboratory if there are any questions. Chloride 104 98 - 107 mmol/L [facility] Carbon Dioxide 28 22 - 31 mmol/L [facility] Anion Gap 7 5 - 15 mmol/L [facility] Calcium 9.6 8.5 - 10.5 mg/dL [facility] Protein, Total 6.3 6.1 - 8.0 g/dL [facility] Albumin 4.3 3.2 - 5.2 g/dL [facility] Aspartate Aminotransferase 14 0 - 39 unit/L [facility] Alanine Aminotransferase 15 0 - 55 unit/L [facility] Alkaline Phosphatase 68 40 - 130 unit/L [facility] Bilirubin, Total 0.7 0.2 - 1.3 mg/dL [facility] Est Glomerular Filtration Rate 81 >=60 mL/min/1. 73 m?? [facility] Comment: This patient's estimated GFR was [...] and symptoms in addition to eGFR. Blood 07/15/2023 10:4 4 AM EST 07/15/2023 10:56 AM EST Narrative Resulting Agency Comment Spec In Lab Mike Louise MD CHEMISTRY ORDERABLES [facility] [place] [address] * Testosterone, total (07/15/2023 10:44 AM EST) Testosterone 5.15 1.93 - 7.40 ng/mL [facility] Comment: Pediatric Reference Ranges: ? Males [...] Stated reference ranges derived from review of Guguchu Johanna Testosterone II 05/2022, v2.0 Blood 07/15/2023 10:4 4 AM EST 07/15/2023 10:56 AM EST Narrative Resulting Agency Comment Spec In Lab Mike Louise MD CHEMISTRY ORDERABLES [facility] [place] [address] documented in this encounter Visit Diagnoses Diagnosis Prostate cancer metastatic to intrapelvic lymph node documented in this encounter Care Teams Vocational Examiner Relationship Specialty Start Date End Date Reji Adams MD [facility] GENER[facility] [place] [address] PCP - General General Internal Medicine 07/13/15 documented as of this encounter
--- OUTSIDE RECORDS SUMMARY | 2024-07-09 11:04 | XMS_ITS | Encounter Summary ---
Author Organization [facility] [place] [address] Care Team Providers Care Dough Cutting Machine Operator Name Role Phone Reji Adams MD Primary Care Provider [phone] Encounter Details Date Type Department Care Team (Late st Contact Info) Description 10/06/2023 [place] [address] Sydni Neumann, RN Social History Tobacco Use Types Packs/Day [...] encounter Miscellaneous Notes * Telephone Encounter - Sydni Neumann RN - 10/06/2023 12:12 PM EDT Attempt to reach patient in regards to rescheduling the [place] (abdomen limited hepatology protocol) that was ordered on 08/26/[address] Ziegler. M for pt to call the [place] Dept to schedule imaging. documented in this encounter Plan of Treatment Upcoming Encounters Date Type Department Care Team (Late st Contact Info) Description 12/15/2024 11:30 AM EDT Office [place] [address] Charline Ziegler MD [facility] [place] [address] documented as of this encounter Visit Diagnoses Not on filedocumented in this encounter Care Teams Dough Cutting Machine Operator Relationship Specialty Start Date End Date Reji Adams MD [facility] [place] [address] PCP - General General Internal Medicine 07/13/15 documented as of this encounter
--- OUTSIDE RECORDS SUMMARY | 2024-07-09 11:04 | XMS_ITS | Encounter Summary ---
Author Organization [facility] [place] [address] Care Team Providers Care Sugar Mixer Name Role Phone Reji Adams MD Primary Care Provider [phone] Reason for Visit * Reason Comments Leg Pain Encounter Details Date Type Department Care Team (Late st Contact Info) Description 11/24/2023 3:49 PM EDT - 11/24/2023 6:18 PM EDT [place] [id number] Low back pain with neuralgia of right sciatic nerve Discharge Disposition: Home Social History Tobacco Use [...] Sign Reading Time Taken Comments Blood Pressure 116/79 11/24/2023 3:28 PM EDT Pulse 65 11/24/2023 3:28 PM EDT Temperature 36.2 ??C (97.2 ??F) 11/24/2023 3:28 PM ED T Respiratory Rate 16 11/24/2023 3:28 PM EDT Oxygen Saturation 98% 11/24/2023 3:28 PM EDT Inhaled Oxygen Concentration - - Weight 88.5 kg (195 lb) 11/24/2023 3:28 PM EDT Height 177.8 cm (5' 10) 11/24/2023 3:28 PM EDT Body Mass Index 27.98 11/24/2023 3:28 PM EDT documented in this encounter Discharge Instructions * Discharge Instructions* Adrián Mesa PA - 11/24/2023 5:44 PM EDT -You were evaluated for your low back pain and right leg pain. Your exam does not show any weaknessor signs of sensory loss and seems most consistent with sciatica - The x-rays of your right hip and pelvis and right femur did not show any signs of fractures - Try some ice to your low back and buttock region for 20 to 30 minutes 2-3 times per day - Take Tylenol 1000 mg 3 times daily for for the next several days for pain control, you can use ibuprofen pain as well and can use the tramadol for severe pain if needed - Take the prednisone daily starting tomorrow, you are given the first dose of prednisone here today - Call your primary care provider or your orthopedic provider for follow-up regarding your symptomsin the next few days - Return to the emergency department increased pain, numbness, weakness, problems with bowel or bladder function or any concerns * Attachments The following attachments cannot be sent through Care Everywhere. * Sciatica ([place]i) documented in this encounter Medications at Time [...] tablet Take 1 tablet by mouth daily. meloxicam (Mobic) 7.5 mg tablet Take 1 tablet by mouth Daily at Noon. 11/18/2023 02/17/2024 predniSONE (Deltasone) 20 mg tablet Take 2 tablets by mouth daily for 4 days. 8 tablet 11/24/2023 11/28/2023 traMADoL (Ultram) 50 mg tablet Take 1 tablet by mouth every 8 hours as needed for Pain. 6 tablet 11/24/2023 12/11/2023 ALPRAZolam (Xanax) 0.25 mg tabletIndications:Anxie ty Take 1 tablet by mouth 3 times daily as needed for Anxiety. 70 tablet 11/19/2023 12/16/2023 celecoxib (CeleBREX) 100 mg capsule Take 100 mg by mouth daily. 09/10/2023 02/17/2024 [id number] liver-vit A-D3 (cod liver oiL) 240-1,000 mg Capsule Take by mouth. 12/11/2023 triamcinolone acetonide (NASACORT ALLERGY NASL) by Nasal route daily. PRN 12/11/2023 documented as of this encounter ED Notes * Jacki Medina LPN - 11/24/2023 6:17 PM EDT Pt ambulatory upon discharge. DC paperwork provided and pt verbalizes understanding * Adrián Mesa PA - 11/24/2023 5:45 PM EDT ED Provider Note HPI: Ken Mckeon is a 78 y.o. adult with a history of prostate carcinoma with metastatic disease, bilateral hip replacements, right knee replacement, osteoarthritis, prior low back fusion. He comes into theED complaining of some right buttock and leg pain down to the knee. This started a few days ago. Is been gradually getting worse it is worse in the morning. When he is upright moving it seems to be better. He denies any falls or injury. Has had no significant abdominal pains, no trouble urinating, no bowel abnormalities. Denies any numbness or tingling in the legs. Was planned for a left total knee replacement next week but because of the pain in the right leg he did not think this would bepossible. He tried to call his primary orthopedic provider to be seen but they could not get him inso decided to come here for evaluation. History is obtained from the patient He does not smoke and lives in [facility] ROS as per HPI Vitals: ED Triage Vitals [11/24/23 1528] BP: 116/79 Heart Rate: 65 Resp: 16 Temp: 36.2 ??C (97.2 ??F) Temp src: Temporal SpO2: 98 % O2 Device: RA O2 Flow Rate (L/min): n/a Physical Exam Vitals and nursing note reviewed. Constitutional: General: He is not in acute distress. Comments: Pleasant elderly male seen in the stretcher in triage 2 HENT: Head: Normocephalic and atraumatic. Mouth/Throat: Pharynx: Oropharynx is clear. Comments: Speech is fluent Pulmonary: Effort: Pulmonary effort is normal. No respiratory distress. Chest: Chest wall: No tenderness. Abdominal: General: Abdomen is flat. Tenderness: There is no abdominal tenderness. There is no guarding. Musculoskeletal: Cervical back: Normal range of motion and neck supple. No rigidity or tenderness. Comments: Patient moves the arms normally. Strength is normal in the upper extremities Lower extremities are really nontender with palpation. Passive range of motion of the hips and knees bilaterally does not cause significant pain. Patient has slight straight leg raise pain on the right. Strength is normal at the hip flexors, knee extensors, knee flexors, plantar flexors, dorsiflexors bilaterally No tenderness over the thoracic spine. There is some tenderness over the lower lumbar spine down into the right sacroiliac region. There is pain in the buttocks near the sciatic notch. Skin: General: Skin is warm and dry. Neurological: General: No focal deficit present. Mental Status: He is alert and oriented to person, place, and time. Motor: No weakness. Comments: Light touch sensation is intact in all areas of the upper or lower extremities bilaterally Psychiatric: Mood and Affect: Mood normal. ED Course: I have reviewed labs and imaging, images and available reports, } XR Femur 2 views Right (Generic) Final Result 1. Uncomplicated right total hip arthroplasty. 2. No diaphyseal fracture of the distal right femur. 3. No displaced fracture of the pelvic ring on the limited single AP projection. Thank you for letting us participate in the care of this patient. If you are a health care provider and have any questions regarding this report, please contact the number below. For patients who have questions please contact the health animal caretaker that requested your imaging first. Pelvis (Generic) Final Result 1. Uncomplicated right total hip arthroplasty. 2. No diaphyseal fracture of the distal right femur. 3. No displaced fracture of the pelvic ring on the limited single AP projection. Thank you for letting us participate in the care of this patient. If you are a health care provider and have any questions regarding this report, please contact the number below. For patients who have questions please contact the health animal caretaker that requested your imaging first. Procedures Assessment and Plan: 78 y.o. adult with history of bilateral total hip replacements, right total knee replacement, prostate carcinoma with metastatic disease to the bones. He comes in emerged part complaining of right leg pain. He had no fall or trauma. Started a few days ago has been gradually getting worse. He does have some pain in the lower back and buttock region. Denies any problems with bowel or bladder functio n. No numbness in the legs. On exam he has tenderness over the lower lumbar region down into the right sacroiliac region and sciatic notch. The slightly positive straight leg raise on the right. His strength and sensation in the lower extremities is totally normal. X-rays of the right hip and pelvis and femur were done and did not show any fractures or evidence for metastatic disease. Clinically I think this is probably related to some low back pain and sciatica symptoms. Will give him a shot of Toradol here in the emergency department. I am also going to place him on prednisone for the next 5 days, first dose will be given now. Recommend he try some ice to the buttocks. Should try to follow-up with his primary orthopedic provider if symptoms are persisting or return to the emergency department for his increased pain, numbness, weakness, problems with bowel or bladder function, or any concerns. He is comfortable this plan leave the Emergency Department stable Final diagnosis #1 low back pain with right leg sciatica Disposition Home stable Adrián Mesa PA 11/24/23 1758 * Adrián Mesa PA - 11/24/2023 3:26 PM EDT Emergency department triage note - Patient is a 78-year-old male with history of right total hip replacement as well as iliotibial band release. Comes in with 2 days of right hip and buttock pain radiating down to his knee. Denies any back pain. Has history of metastatic prostate carcinoma. No fall or injuries. No pains in the left leg. No pains in the right leg below the knee. Elderly male resting in a chair in triage Afeb vss Resp nad Neuro A&O ambulates with antalgic gait and cane Patient is 78-year-old male with history of metastatic prostate carcinoma. Has had a prior right hip replacement iliotibial band release. Comes in with 2 days of right hip pain and thigh pain radiating from the buttock to the knee. No weakness. No fall or injury. Stable in triage Will get some x-rays of the right hip and pelvis and right femur and have the patient evaluated in the main ED Adrián Mesa PA 11/24/23 1529 documented in this encounter Miscellaneous Notes * ED Triage - Lucille Brown, RN - 11/24/2023 3:30 PM EDT HPI (Adult) Stated Reason for Visit: I am having new R lateral leg pain from my R posterior hip to R knee on the outside. History Obtained From: patient patient presents with right lateral leg pain from right posterior hip down to right knee. Patient denies fall or trauma. Patient able to walk with cane slowly and get up and down slowly with pain. Skin warm pink and dry documented in this encounter Plan of Treatment Upcoming Encounters Date Type Department Care Team (Late st Contact Info) Description 12/15/2024 11:30 AM EDT Office [place] [address] Charline Ziegler MD [facility] [place] [address] documented as of this encounter Procedures Procedure Name Priority Date/Time Associated Diagnosis Comments XR FEMUR 2 VIEWS RIGHT STAT 11/24/2023 4:39 PM EDT XR PELVIS STAT 11/24/2023 4:39 PM EDT documented in this encounter Results * XR Pelvis (Generic) (11/24/2023 4:39 PM EDT) WORKSTATION ID [id number] [facility] Anatomical Region Laterality Modality Pelvis N/A Digital Radiogra phy Impressions 11/24/2023 4:47 PM EDT 1. ??Uncomplicated right total hip arthroplasty. 2. ??No diaphyseal fracture of the distal right femur. 3. ??No displaced fracture of the pelvic ring on the limited single AP projection. Thank you for letting us participate in the care of this patient. ??If you are a health care provider and have any questions regarding this report, please contact the number below. ??For patients who have questions please contact the health animal caretaker that requested your imaging first. ? Narrative 11/24/2023 4:47 PM EDT EXAMINATION: XR PELVIS (GENERIC), XR FEMUR 2 VIEWS RIGHT (GENERIC) CLINICAL HISTORY: Right hip pain (as entered by ordering provider in the order requisition) TECHNIQUE: AP view of the pelvis. Segmented AP and crosstable lateral views of the right femur. COMPARISON: CT abdomen and pelvis August 15, 2023. FINDINGS: Right femur: There is a right total hip arthroplasty. The femoral head component is centered within the acetabular cup. No periprosthetic fracture or bone resorption. No diaphyseal fracture of the distal right femur. Partial visualization of a right total hip arthroplasty. Pelvis: There is an incompletely evaluated left total hip arthroplasty. Vertebroplasty changes of L5. Bilateral sacroplasty changes. Normal spacing the pubic symphysis and bilateral sacroiliac joints. Similar appearance of subchondral sclerosis of the right pubic bone. No displaced fracture of the pelvic ring on this limited AP projection. Procedure Note Loreta Cornelius MD - 11/24/2023 EXAMINATION: XR PELVIS (GENERIC), XR FEMUR 2 VIEWS RIGHT (GENERIC) CLINICAL HISTORY: Right hip pain (as entered by ordering provider in theorder requisition) TECHNIQUE: AP view of the pelvis. Segmented AP and crosstable lateral views of the right femur. COMPARISON: CT abdomen and pelvis August 15, 2023. FINDINGS: Right femur: There is a right total hip arthroplasty. The femoral head component iscentered within the acetabular cup. No periprosthetic fracture or boneresorption. No diaphyseal fracture of the distal right femur. Partial visualization of a right total hip arthroplasty. Pelvis: There is an incompletely evaluated left total hip arthroplasty. Vertebroplasty changes of L5. Bilateral sacroplasty changes. Normal spacing the pubic symphysis and bilateral sacroiliac joints. Similar appearance of subchondral sclerosis of the right pubic bone. No displaced fracture of the pelvic ring on this limited AP projection. IMPRESSION 1. Uncomplicated right total hip arthroplasty. 2. No diaphyseal fracture of the distal right femur. 3. No displaced fracture of the pelvic ring on the limited single AP projection. Thank you for letting us participate in the care of this patient. If youare a health care provider and have any questions regarding this report,please contact the number below. For patients who have questions please contactthe health animal caretaker that requested your imaging first. Nisha Meadows DO IMG DX ORDE RABLES * XR Femur 2 views Right (Generic) (11/24/2023 4:39 PM EDT) [employer] WORKSTATION ID [id number] RAD Anatomical Region Laterality Modality Thigh Right Digital Radiogra phy Impressions 11/24/2023 4:47 PM EDT 1. ??Uncomplicated right total hip arthroplasty. 2. ??No diaphyseal fracture of the distal right femur. 3. ??No displaced fracture of the pelvic ring on the limited single AP projection. Thank you for letting us participate in the care of this patient. ??If you are a health care provider and have any questions regarding this report, please contact the number below. ??For patients who have questions please contact the health animal caretaker that requested your imaging first. ? Narrative 11/24/2023 4:47 PM EDT EXAMINATION: XR PELVIS (GENERIC), XR FEMUR 2 VIEWS RIGHT (GENERIC) CLINICAL HISTORY: Right hip pain (as entered by ordering provider in the order requisition) TECHNIQUE: AP view of the pelvis. Segmented AP and crosstable lateral views of the right femur. COMPARISON: CT abdomen and pelvis August 15, 2023. FINDINGS: Right femur: There is a right total hip arthroplasty. The femoral head component is centered within the acetabular cup. No periprosthetic fracture or bone resorption. No diaphyseal fracture of the distal right femur. Partial visualization of a right total hip arthroplasty. Pelvis: There is an incompletely evaluated left total hip arthroplasty. Vertebroplasty changes of L5. Bilateral sacroplasty changes. Normal spacing the pubic symphysis and bilateral sacroiliac joints. Similar appearance of subchondral sclerosis of the right pubic bone. No displaced fracture of the pelvic ring on this limited AP projection. Procedure Note Loreta Cornelius MD - 11/24/2023 EXAMINATION: XR PELVIS (GENERIC), XR FEMUR 2 VIEWS RIGHT (GENERIC) CLINICAL HISTORY: Right hip pain (as entered by ordering provider in theorder requisition) TECHNIQUE: AP view of the pelvis. Segmented AP and crosstable lateral views of the right femur. COMPARISON: CT abdomen and pelvis August 15, 2023. FINDINGS: Right femur: There is a right total hip arthroplasty. The femoral head component iscentered within the acetabular cup. No periprosthetic fracture or boneresorption. No diaphyseal fracture of the distal right femur. Partial visualization of a right total hip arthroplasty. Pelvis: There is an incompletely evaluated left total hip arthroplasty. Vertebroplasty changes of L5. Bilateral sacroplasty changes. Normal spacing the pubic symphysis and bilateral sacroiliac joints. Similar appearance of subchondral sclerosis of the right pubic bone. No displaced fracture of the pelvic ring on this limited AP projection. IMPRESSION 1. Uncomplicated right total hip arthroplasty. 2. No diaphyseal fracture of the distal right femur. 3. No displaced fracture of the pelvic ring on the limited single AP projection. Thank you for letting us participate in the care of this patient. If youare a health care provider and have any questions regarding this report,please contact the number below. For patients who have questions please contactthe health animal caretaker that requested your imaging first. Nisha Hoff Doug Meadows DO IMG DX JULY BOSWELL documented in this encounter Visit Diagnoses Diagnosis Low back pain with neuralgia of right sciatic nerve documented in this encounter Administered Medications Inactive Administered Medications - up to 3 most recent administrations Medication Order MAR Action Action Date Dose Rate Site ketorolac (Toradol) (15 mg/mL) injection 15 mg 15 mg, Intramuscular, ONCE, 1 dose, On Fri11/24/23 at 1740, STAT Given 11/24/2023 6:07 PM EDT 15 mg predniSONE (Deltasone) tablet 40 mg 40 mg, Oral, ONCE, 1 dose, On Fri11/24/23 at 1740, STAT Given 11/24/2023 6:07 PM EDT 40 mg documented in this encounter Active and Recently Administered Medications Times are shown in EDT. Scheduled Medication Order 11/22/2023 11/23/2023 11/24/2023 ketorolac (Toradol) (15 mg/mL) injection 15 mg (COMPLETED) 15 mg, Intramuscular, ONCE, 1 dose, On Fri11/24/23 at 1740, STAT 1807 (Given - Provid er: Jacki Medina LPN) predniSONE (Deltasone) tablet 40 mg (COMPLETED) 40 mg, Oral, ONCE, 1 dose, On Fri11/24/23 at 1740, STAT 1807 (Given - Provid er: Jacki Medina LPN) documented in this encounter Care Teams Sugar Mixer Relationship Specialty Start Date End Date Reji Adams MD [facility] [place] [address] PCP - General General Internal Medicine 07/13/15 documented as of this encounter
--- OUTSIDE RECORDS SUMMARY | 2024-07-09 11:04 | XMS_ITS | Encounter Summary ---
Author Organization [facility] Address [facility] [place] [address] Care Team Providers Care Coding Compliance Auditor Name Role Phone Reji Adams MD Primary Care Provider [phone] Encounter Details Date Type Department Care Team (Late st Contact Info) Description 08/15/2023 Interpretation Only [address] [id number] Marcelino Bradley MD [address] [place] [address] Social History Tobacco Use Types Packs/Day Years [...] 11:30 AM EDT Office [place] [address] Charline Ziegler MD [facility] [place] [address] documented as of this encounter Procedures Procedure Name Priority Date/Time Associated Diagnosis Comments CT ABDOMEN AND PELVIS WO CONTRAST STAT 08/15/2023 5:01 PM EST documented in this encounter Results * CT Abdomen & Pelvis wo Contrast (08/15/2023 5:01 PM EST) PT CLASS E RAD ADMITDTTM [id number] RAD PT [facility] INFO [id number]^Bradley^R ichard RAD EXAM DESC CTAPWO^CT Abdomen and Pelvis w/o Contrast^RIS RAD Anatomical Region Laterality Modality Abdomen, Pelvis Computed Tomogra phy 08/15/2023 4:33 PM EST Impressions 08/15/2023 5:24 PM EST No acute abdominal or pelvic process. Specifically, no renal calculi, hydronephrosis or urolithiasis. Thank you for letting us participate in the care of this patient. ??If you are a health care provider and have any questions regarding this report, please contact the number below. ??For patients who have questions please contact the health daycare manager that requested your imaging first. ? Electronically signed by: Kavya Zurita MD, [facility] ([phone]), at 08/15/2023 5:24 PM Narrative 08/15/2023 5:24 PM EST EXAMINATION: CT Abdomen and Pelvis w/o Contrast CLINICAL HISTORY: R sided abd pain? Renal colic TECHNIQUE: Helical CT of the abdomen and pelvis without intravenous contrast. Oral contrast was not administered. Multiplanar reformatted images were generated. COMPARISON: CT abdomen and pelvis, January 09, 2023 FINDINGS: The absence of intravenous contrast limits the evaluation of solid viscera and vasculature. Lower chest: Normal. Liver: Normal. Bile ducts: Not dilated. Gallbladder: Contracted gallbladder. No calcified stones. Pancreas: Normal. No peripancreatic stranding or fluid. Spleen: Normal.. Adrenals: Normal. Right kidney/ureter: Unchanged right interpolar hypodensity, compatible with a renal cyst. No renal calculi, hydronephrosis or hydroureter. Left kidney/ureter: No left renal calculi, hydronephrosis or hydroureter. Vasculature: Mild atherosclerotic calcifications of the abdominal aorta and common iliacs. Lymph Nodes: No enlarged lymph nodes. Bowel: No abnormal bowel dilation, wall thickening or surrounding inflammatory change. Normal appendix. Peritoneum: No free air. No free or loculated fluid collection. Abdominal wall: Normal. Urinary Bladder: Limited evaluation due to streak artifact from bilateral hip arthroplasty hardware. The visualized minimally distended urinary bladder is grossly normal. Reproductive organs: Normal. Osseous structures: Diffuse osseous demineralization, with kyphoplasty changes at L5 and bilateral S1 and S2. Osseous fusion of the posterior elements of L4-S2. Multilevel degenerative changes of the lower thoracic and lower lumbar spine. Procedure Note Kavya Zurita MD - 08/15/2023 EXAMINATION: CT Abdomen and Pelvis w/o Contrast CLINICAL HISTORY: R sided abd pain? Renal colic TECHNIQUE: Helical CT of the abdomen and pelvis without intravenouscontrast. Oral contrast was not administered. Multiplanar reformatted images were generated. COMPARISON: CT abdomen and pelvis, January 09, 2023 FINDINGS: The absence of intravenous contrast limits the evaluation ofsolid viscera and vasculature. Lower chest: Normal. Liver: Normal. Bile ducts: Not dilated. Gallbladder: Contracted gallbladder. No calcified stones. Pancreas: Normal. No peripancreatic stranding or fluid. Spleen: Normal.. Adrenals: Normal. Right kidney/ureter: Unchanged right interpolar hypodensity, compatiblewith a renal cyst. No renal calculi, hydronephrosis or hydroureter. Left kidney/ureter: No left renal calculi, hydronephrosis orhydroureter. Vasculature: Mild atherosclerotic calcifications of the abdominal aortaand common iliacs. Lymph Nodes: No enlarged lymph nodes. Bowel: No abnormal bowel dilation, wall thickening or surroundinginflammatory change. Normal appendix. Peritoneum: No free air. No free or loculated fluid collection. Abdominal wall: Normal. Urinary Bladder: Limited evaluation due to streak artifact from bilateralhip arthroplasty hardware. The visualized minimally distended urinary bladderis grossly normal. Reproductive organs: Normal. Osseous structures: Diffuse osseous demineralization, with kyphoplastychanges at L5 and bilateral S1 and S2. Osseous fusion of the posterior elementsof L4-S2. Multilevel degenerative changes of the lower thoracic and lowerlumbar spine. IMPRESSION No acute abdominal or pelvic process. Specifically, no renal calculi, hydronephrosis or urolithiasis. Thank you for letting us participate in the care of this patient. If youare a health care provider and have any questions regarding this report,please contact the number below. For patients who have questions please contactthe health daycare manager that requested your imaging first. Marcelino Bradley MD IMG CT ORDERABLES documented in this encounter Visit Diagnoses Not on filedocumented in this encounter Care Teams Coding Compliance Auditor Relationship Specialty Start Date End Date Reji Adams MD [facility] [place] [address] PCP - General General Internal Medicine 07/13/15 documented as of this encounter
--- OUTSIDE RECORDS SUMMARY | 2024-07-09 11:04 | XMS_ITS | Encounter Summary ---
Author Organization [facility] [place] [address] Care Team Providers Care Station Gateman Name Role Phone Reji Adams MD Primary Care Provider [phone] Encounter Details Date Type Department Care Team (Late st Contact Info) Description 10/13/2023 [place] [address] Sydni Neumann, RN Social History [...] in a long term (including now)? Patient refused 07/20/2021 Sex and Gender Information Value Date Recorded Sex Assigned at Choose not to disclose 02/2023 8:26 AM EDT Gender Identity Not on file Sexual Orientation Choose not to disclose 2022 8:26 AM EDT documented as of this encounter Miscellaneous Notes * Telephone Encounter - Sydni Neumann RN - 10/13/2023 1:58 PM EDT Reaching out to assist pt in scheduling the US (abdomen limited hepatology protocol) that was ordered on 08/26/[address] Ziegler. LVM for pt to call the US Dept or the GI Clinic to schedule imaging. documented in this encounter Plan of Treatment Upcoming Encounters Date Type Department Care Team (Late st Contact Info) Description 12/15/2024 11:30 AM EDT Office Visit [place] [address] Charline Ziegler MD [facility] [place] [address] documented as of this encounter Visit Diagnoses Not on filedocumented in this encounter Care Teams Station Gateman Relationship Specialty Start Date End Date Reji Adams MD [facility] [place] [address] PCP - General General Internal Medicine 07/13/15 documented as of this encounter
--- OUTSIDE RECORDS SUMMARY | 2024-07-09 11:05 | XMS_ITS | Encounter Summary ---
Author Organization [facility] Address [facility] [place] [address] Care Team Providers Care Registration Coordinator Name Role Phone Reji Adams MD Primary Care Provider [phone] Reason for Visit * Reason Comments Follow-up Encounter Details Date Type Department Care Team (Late st Contact Info) Description 04/18/2023 4:30 PM EDT Office Visit Hematology [place] [address] Mike Louise MD [facility] DR HEMATOLOGY [place] [address] Prostate cancer metastatic to intrapelvic lymph node Social History Tobacco Use Types Packs/Day Years [...] Sign Reading Time Taken Comments Blood Pressure 117/68 04/18/2023 4:17 PM EDT Pulse 74 04/18/2023 4:17 PM EDT Temperature 36.2 ??C (97.2 ??F) 04/18/2023 4:17 PM ED T Respiratory Rate 18 04/18/2023 4:17 PM EDT Oxygen Saturation 99% 04/18/2023 4:17 PM EDT Inhaled Oxygen Concentration - - Weight 90.7 kg (199 lb 15.3 oz) 04/18/2023 4:17 PM EDT Height 180.6 cm (5' 11.1) 04/18/2023 4:17 PM ED T Body Mass Index 27.81 04/18/2023 4:17 PM EDT documented in this encounter Progress Notes * Mike Louise MD - 04/18/2023 4:30 PM EDT Images from the original note were not included. Diagnosis: pT2, pN0, cM0, PSA: 7, Grade Group: 5, Sinan: 4, +: 5) CC:I feel okay HPI:Ken Mckeon is 77 y.o.M Coming for second opinion on management of prostate cancer. He was initially diagnosed with prostate cancer in 2018. Ken underwent radical prostatectomy in April 2019. His PSA has been slowly rising and reached level of biochemical recurrence in April 2021. Hefollowed with radiation oncologist Dr. White. Went for second opinion to [facility]. Mr. Mckeon had a PSMA PET scan at [facility] 07/02/21 and evaluation in radiation oncology and medical oncology by Dr. Marin and Dr. Desai, respectively at [facility].PET showed possible L2 and pelvic node recurrence ofprostate cancer s/p prostatectomy. A recommendation was made for lumbar spine MRI and the patient prefers to have it at [place]. I have requested the MRI L spine [...] at the [facility] showed [place] 4+5 involving 20 to 50% of 3 cores from the targeted lesion. There was an intraductal carcinoma component present. The remaining tissue was negative for malignancy. 02/08/2019 - Cancer Staged Staging form: Prostate, AJCC 8th Edition - Clinical stage from 02/08/2019: Stage IIIC (cT1c, cN0, cM0, PSA: 7.3, Grade Group: 5, 02/08/19, [place]: 4, +: 5) - Signed by Leonid Tipton MD, MPH on 06/06/2021 02/22/2019 - Cancer Staged February 22, 2019: Nuclear medicine bone scan at [facility] showed no evidence of bony metastatic disease 05/18/2019 Surgery May 18, 2019: Radical prostatectomy with pathology reviewed at [facility] showed Sinan 4+5 involving 10% of the [...] pN0, cM0, PSA: 7, Grade Group: 5, [place]: 4, +: 5) , high risk for [...] 09/12/2021 - started Abiraterone and prednisone. Interval history:Ken Mckeon is in clinic for follow-up appointment prostate cancer schedule restaging PSMA PET scan. He has been off abiraterone and prednisone and Lupron for about 5 months. He will feels tired and complains of hot flashes. He follows with PCP for back pain. Had MRI today. PMH: No interval changes since last visit sacroplasty and L5 vertebroplasty back in April 2022 Osteoarthritis, anxiety, history of spinal cord injury Past Medical History: Diagnosis Date BPH (benign prostatic hyperplasia) Neck pain 08/24/2012 OA (osteoarthritis) of knee right Spinal cord injury at 2016 Social History: Non-smoker, drinks up to 3 [...] on file Physical Activity: Not on file Housing Stability: Not on file Family History: Mother had bone cancer Family History Problem Relation Age of Onset Cancer Mother bone Diabetes Father Cancer Father testicular Allergies: Allergies Allergen Reactions Penicillins Anaphylaxis Tongue swelling Betamethasone hiccups after injection Dexamethasone Hiccups after injection Triamcinolone Acetonide Hiccups Your Medications Accurate as of April 18, 2023 4:28 PM. If you have any questions, ask your [...] 0.25 mg Quantity: 70 tablet Refills: 0 multivitamin Tablet Commonly known as: THERAGRAN Take 1 tablet by mouth daily. 1 tablet Refills: 0 NASACORT ALLERGY NASL by Nasal route daily. PRN Refills: 0 polyethylene glycoL 17 gram/dose Powder Commonly known as: Miralax Take 17 g by mouth daily. 17 g Refills: 0 pravastatin 20 mg tablet Commonly known as: Pravachol Take 1 tablet by mouth daily. 20 mg Quantity: 90 tablet Refills: 3 Review of Systems: Constitutional: Positive for fatigue [...] Psych: Conversant, normal mood and affect. BP 117/68 (Patient Position: Sitting) Pulse 74 Temp 36.2 ??C (97.2 ??F) (Temporal) Resp 18 Ht 180.6 cm (5' 11.1) Wt 90.7 kg (199 lb 15.3 oz) SpO2 99% BMI 27.81 kg/m?? Pathology: 05/18/2019 Outside slide(s) labeled [id number], collection date 05/18/2019. A) Soft tissue, left [...] Acinar adenocarcinoma Histologic Grade Grade Group and Sinan Score: Grade group 5 (Sinan Score 4 + 5 = 9) Percentage [...] pT2 Regional Lymph Nodes (pN): pN0 Labs: Latest Reference Range & Units 04/09/23 09:33 WBC 4.0 - 9.5 x10(3)/mcL 4.4 RBC 4.58 - 5.54 x10(6)/mcL 4.23 (L) Hemoglobin 13.7 - 16.5 g/dL 13.4 (L) Hematocrit 40.5 - 48.5 % 38.8 (L) MCV 82.9 - 93.1 fL 91.7 MCH 27.5 - 32.1 pg 31.7 MCHC 32.0 - 35.7 g/dL 34.5 RDWSD 36.0 - 45.0 fL 45.6 (H) RDWCV 11.4 - 13.8 % 13.4 Platelets 145 - 357 x10(3)/mcL 149 MPV 7.6 - 12.9 fL 9.2 nRBC % Auto % 0.0 nRBC Abs Auto 0.000 - 0.000 x10(3)/mcL 0.000 Neutr Abs (ANC) 1.70 - 6.10 x10(3)/mcL 2.62 Neutrophils % % 59.3 Immature Gran % % 0.20 Lymphocytes % % 27.6 Monocytes % % 9.7 Eosinophils % % 2.5 Basophils % % 0.7 Mahsa Gran Abs 0.00 - 0.04 x10(3)/mcL 0.01 Lymphocytes Abs 0.9 - 3.2 x10(3)/mcL 1.2 Monocyte Abs 0.3 - 0.9 x10(3)/mcL 0.4 Eosinophils Abs 0.0 - 0.4 x10(3)/mcL 0.1 Basophils Abs 0.0 - 0.1 x10(3)/mcL 0.0 Sodium 135 - 145 mmol/L 137 Potassium 3.5 - 5.0 mmol/L 4.1 Chloride 98 - 107 mmol/L 100 CO2 22 - 31 mmol/L 27 Anion Gap 5 - 15 mmol/L 10 BUN 10 - 20 mg/dL 13 Creatinine 0.80 - 1.50 mg/dL 0.92 Estimated GFR >=60 mL/min/1.73 m?? 86 Calcium 8.5 - 10.5 mg/dL 9.5 Glucose Lvl 65 - 199 mg/dL 90 Total Protein 6.1 - 8.0 g/dL 6.6 Albumin 3.2 - 5.2 g/dL 4.3 Total Bilirubin 0.2 - 1.3 mg/dL 0.7 Alk Phos 40 - 130 unit/L 65 AST 0 - 39 unit/L 20 ALT 0 - 55 unit/L 15 PSA Total (Ultrasensitive) 0.00 - 4.00 ng/mL <0.01 Testo Total 1.93 - 7.40 ng/mL <0.12 (L) (L): Data is abnormally low (H): Data is abnormally high PSA testosteron 04/18/23 <0.01 <0.12 01/22/23 <0.01 11/20/22 <0.01 [...] above, similar to prior exam. PSMA-PET, 06/29/21 ([facility] reading): 1. Mildly avid bilateral subcentimeter external [...] Dr. Leonid Tipton and Dr. Desai, at [facility] [place]. Had a restaging PSM a PET scan [...] he has been in communication with Dr. Desai, who suggested an aggressive ADT treatment course [...] he decides to proceed with treatment at [facility]. I am happy to see him on as-needed basis. 11/20/22 Mr. Mckeon followed with urologist for Eligard injection and with medical oncologist at [facility] but his oncologist left. He would like [...] known cardiac toxicity. He has appointment with waiter waitress in November. We discussed holding off abiraterone [...] and PSMA PET scan He will see waiter waitress in November 01/22/23 he continues to follow with medical oncologist Dr. Sary Desai at [facility] and discussed the options (copied form Dr. [...] stopping at 2 years. Overall, given his [place] 9 disease and jose metastasis the risk [...] in 3 months with blood work only Plan: 1. Next visit in 3 months with CBC, CMP, PSA, testosterone This encounter was primarily counseling-based (>50 % of total time) with total time of 30 minutes, of which 20 minutes was spent with the patient/family discussing: [...] 11:30 AM EDT Office [place] [address] Charline Ziegler MD [facility] [place] [address] documented as of this encounter Visit Diagnoses Diagnosis Prostate cancer metastatic to intrapelvic lymph node documented in this encounter Care Teams Registration Coordinator Relationship Specialty Start Date End Date Reji Adams MD [facility] GENER[place] [address] PCP - General General Internal Medicine 07/13/15 documented as of this encounter
--- OUTSIDE RECORDS SUMMARY | 2024-07-09 11:05 | XMS_ITS | Encounter Summary ---
Author Organization [facility] [place] [address] Care Team Providers Care Wooden Box Maker Name Role Phone Reji Adams MD Primary Care Provider [phone] Encounter Details Date Type Department Care Team (Latest Contact Info) Description 04/08/2023 Travel Social History Tobacco Use Types Packs/Day [...] 11:30 AM EDT Office Visit [place] [address] Charline Ziegler MD [facility] [place] [address] documented as of this encounter Visit Diagnoses Not on filedocumented in this encounter Care Teams Wooden Box Maker Relationship Specialty Start Date End Date Reji Adams MD [facility] [place] [address] PCP - General General Internal Medicine 07/13/15 documented as of this encounter
--- OUTSIDE RECORDS SUMMARY | 2024-07-09 11:05 | XMS_ITS | Encounter Summary ---
Author Organization [facility] [place] [address] Care Team Providers Care Customer Experience Intern Name Role Phone Reji Adams MD Primary Care Provider [phone] Encounter Details Date Type Department Care Team (Latest Contact Info) Description 06/07/2023 Travel Social History Tobacco Use Types Packs/Day [...] slept in a snf (including now)? Patient refused 07/20/2021 Sex and [...] 11:30 AM EDT Office [place] [address] Charline Ziegler MD [facility] [place] [address] documented as of this encounter Visit Diagnoses Not on filedocumented in this encounter Care Teams Customer Experience Intern Relationship Specialty Start Date End Date Reji Adams MD [facility] [place] [address] PCP - General General Internal Medicine 07/13/15 documented as of this encounter
--- OUTSIDE RECORDS SUMMARY | 2024-07-09 11:05 | XMS_ITS | Encounter Summary ---
Author Organization [facility] Address [facility] [place] [address] Care Team Providers Care Aircraft Life Support Fitter Name Role Phone Reji Adams MD Primary Care Provider [phone] Encounter Details Date Type Department Care Team (Latest Contact Info) Description 04/09/2023 9:27 AM EDT - 04/09/2023 9:40 AM EDT Hospital Encounter [place]ematology [place] [address] Prostate cancer metastatic to intrapelvic lymph node [...] daily as needed for Anxiety. 70 tablet 04/07/2023 05/02/2023 triamcinolone acetonide (NASACORT ALLERGY NASL) by Nasal route daily. PRN 12/11/2023 pravastatin (Pravachol) 20 mg Tablet Take 1 tablet by mouth daily. 90 tablet 3 08/05/2022 04/28/2023 documented as of this encounter Plan of Treatment Upcoming Encounters Date Type Department Care Team (Late st Contact Info) Description 12/15/2024 11:30 AM EDT Office [place] [address] Charline Ziegler MD [facility] [place] [address] documented as of this encounter Procedures Procedure Name Priority Date/Time Associated Diagnosis Comments HEMOGRAM Routine 04/09/2023 9:33 AM EDT Prostate cancer metastatic to intrapelvic lymph node DIFFERENTIAL, AUTOMATED Routine 04/09/2023 9:33 AM EDT Prostate cancer metastatic to intrapelvic lymph node CBC (WITH DIFF) Routine 04/09/2023 9:33 AM EDT Prostate cancer metastatic to intrapelvic lymph node TESTOSTERONE, TOTAL Routine 04/09/2023 9 :33 AM EDT Prostate cancer metastatic to intrapelvic lymph node PSA (ULTRASENSITIVE) Routine 04/09/2023 9:33 AM EDT Prostate cancer metastatic to intrapelvic lymph node COMPREHENSIVE METABOLIC PANEL Routine 04/09/2023 9:33 AM EDT Prostate cancer metastatic to intrapelvic lymph node documented in this encounter Results * Differential, Automated (04/09/2023 9:33 AM EDT) Neutrophil % 59.3 % [facility] Neutrophil Absolute 2.62 1.70 - 6.10 x10(3)/[facility] Lymph % 27.6 % [facility] Lymphocytes Abs 1.2 0.9 - 3.2 x10(3)/[facility] Monocyte % 9.7 % [facility] Monocyte Abs 0.4 0.3 - 0.9 x10(3)/[facility] Eos % 2.5 % [facility] Eosinophils Abs 0.1 0.0 - 0.4 x10(3)/[facility] Basophil % 0.7 % [facility] Baso Absolute 0.0 0.0 - 0.1 x10(3)/[facility] Immature Gran % 0.20 % [facility] Comment: Immature granulocytes(IG's)percentage and absolute count will include metamyelocytes, myelocytes, and promyelocytes. Blood smears from CBCs yielding IG's will be scanned manually for concordance. If this scan disagrees with the automated IG or if promyelocytes are noted, a manual differential will be performed. Immature Gran Absolute 0.01 0.00 - 0.04 x10(3)/[facility] Blood 04/09/2023 9:33 AM EDT 04/09/2023 9:45 AM EDT Narrative Resulting Agency Comment Spec In Lab Mike Louise MD HEMATOLOGY ORDERABLE S [facility] [place] [address] * (ABNORMAL) Hemogram (04/09/2023 9:33 AM EDT) White Blood Cell 4.4 4.0 - 9.5 x10(3)/mc L [facility] Red Blood Cell 4.23(L) 4.58 - 5.54 x10(6)/mc L [facility] Hemoglobin 13.4(L) 13.7 - 16.5 g/dL [facility] Hematocrit 38.8(L) 40.5 - 48.5 % [facility] Mean Cell Volume 91.7 82.9 - 93.1 fL [facility] Mean Cell Hemoglobin 31.7 27.5 - 32.1 pg [facility] Mean Cell Hemoglobin Concentration 34.5 32.0 - 35.7 g/dL [facility] Platelet 149 145 - 357 x10(3)/mc L [facility] RDW Standard Deviation 45.6(H) 36.0 - 45.0 fL [facility] RDW coefficient of variation 13.4 11.4 - 13.8 % [facility] Mean Platelet Volume 9.2 7.6 - 12.9 fL [facility] NRBC% auto 0.0 % [facility] NRBC Absolute 0.000 0.000 - 0.000 x10(3)/ L [facility] Blood 04/09/2023 9:33 AM EDT 04/09/2023 9:45 AM EDT Narrative Resulting Agency Comment Spec In Lab Mike Louise MD HEMATOLOGY ORDERABLE S Performing Organization Address City/[facility]/ZIP Co de Phone Number [facility] [place] [address] * (ABNORMAL) Testosterone, total (04/09/2023 9:33 AM EDT) Testosterone <0.12(L) 1.93 - 7.40 ng/mL [facility] Comment: Pediatric Reference Ranges: ? [...] Tung Johanna Testosterone II 05/2022, v2.0 Blood 04/09/2023 9:33 AM EDT 04/09/2023 9:45 AM EDT Narrative Resulting Agency Comment Spec In Lab Mike Louise MD CHEMISTRY ORDERABLES [facility] [place] [address] * Comprehensive metabolic panel (non-fasting) (04/09/2023 9:33 AM EDT) Glucose 90 65 - 199 mg/dL [facility] Comment:Diabetes: >=200 mg/d L plus symptoms Blood Urea Nitrogen 13 10 - 20 mg/dL [facility] Creatinine 0.92 0.80 - 1.50 mg/dL [facility] Sodium 137 135 - 145 mmol/L [facility] Potassium 4.1 3.5 - 5.0 mmol/L [facility] Comment: Please note: ??Patients with WBC >100,000 may have falsely elevated Potassium levels. ??For accurate Potassium quantification in these patients send serum separator tube (gold top) for subsequent determinations. ??Contact the Clinical Chemistry Laboratory if there are any questions. Chloride 100 98 - 107 mmol/L [facility] Carbon Dioxide 27 22 - 31 mmol/L [facility] Anion Gap 10 5 - 15 mmol/L [facility] Calcium 9.5 8.5 - 10.5 mg/dL [facility] Protein, Total 6.6 6.1 - 8.0 g/dL [facility] Albumin 4.3 3.2 - 5.2 g/dL [facility] Aspartate Aminotransferase 20 0 - 39 unit/L [facility] Alanine Aminotransferase 15 0 - 55 unit/L [facility] Alkaline Phosphatase 65 40 - 130 unit/L [facility] Bilirubin, Total 0.7 0.2 - 1.3 mg/dL [facility] Est Glomerular Filtration Rate 86 >=60 mL/min/1. 73 m?? [facility] Comment: This patient's estimated GFR was [...] and symptoms in addition to eGFR. Blood 04/09/2023 9:33 AM EDT 04/09/2023 9:45 AM EDT Narrative Resulting Agency Comment Spec In Lab Mike Louise MD CHEMISTRY ORDERABLES Performing Organization Address City/[facility]/ZIP Co de Phone Number [facility] [place] [address] * PSA (Ultrasensitive) (04/09/2023 9:33 AM EDT) Prostate Specific Antigen (Ultrasensitive) <0.01 0.00 - 4.00 ng/mL [facility] Comment: PLEASE NOTE: The above reference interval is intended for healthy males with an intact prostate. Values within this reference interval may indicate recurrence in men who have undergone radical prostatectomy. This result was generated using a Tung Johanna immunoassay. ??Results obtained from other methods or manufacturers cannot be used interchangeably with this method. Blood 04/09/2023 9:33 AM EDT 04/09/2023 9:45 AM EDT Narrative Resulting Agency Comment Spec In Lab Mike Louies MD CHEMISTRY ORDERABLES Performing Organization Address [facility] Co de Phone Number [facility] [place] [address] documented in this encounter Visit Diagnoses Diagnosis Prostate cancer metastatic to intrapelvic lymph node documented in this encounter Care Teams Aircraft Life Support Fitter Relationship Specialty Start Date End Date Reji Adams MD [facility] GENERAL [place] [address] PCP - General General Internal Medicine 07/13/15 documented as of this encounter
--- OUTSIDE RECORDS SUMMARY | 2024-07-09 11:05 | XMS_ITS | Encounter Summary ---
Author Organization [facility] [place] [address] Care Team Providers Care Quality Control Assistant Name Role Phone Reji Adams MD Primary Care Provider [phone] Encounter Details Date Type Department Care Team (Latest Contact Info) Description 06/11/2023 Travel Social History Tobacco Use Types Packs/Day [...] 11:30 AM EDT Office [place] [address] Charline Ziegler MD [facility] [place] [address] documented as of this encounter Visit Diagnoses Not on filedocumented in this encounter Care Teams Quality Control Assistant Relationship Specialty Start Date End Date Reji Adams MD [facility] [place] [address] PCP - General General Internal Medicine 07/13/15 documented as of this encounter
--- OUTSIDE RECORDS SUMMARY | 2024-07-09 11:05 | XMS_ITS | Encounter Summary ---
Author Organization [facility] Address [facility] [place] [address] Care Team Providers Care Malt House Kiln Operator Name Role Phone Reji Adams MD Primary Care Provider [phone] Reason for Visit * Reason Comments Medication Refill Encounter Details Date Type Department Care Team (Late st Contact Info) Description 04/26/2023 Refill Internal Medicine at [address] [address] Reji Adams MD [facility] [place] [address] Social History Tobacco Use Types Packs/Day Years [...] place to sleep or slept in a mcc (including now)? Patient refused 07/20/2021 Sex and Gender Information Value Date Recorded Sex Assigned at Choose not to disclose 02/2023 8:26 AM EDT Gender Identity Not on file Sexual Orientation Choose not to disclose 2022 8:26 AM EDT documented as of this encounter Miscellaneous Notes * Telephone Encounter - Fatmata Joshua CMA - 04/28/2023 1:38 PM EDT Prescription Renewal Request Name: Ken Mckeon : 1945 Prescription(s) Requested: Requested Prescriptions Pending Prescriptions Disp Refills pravastatin (Pravachol) 20 mg tablet [Pharmacy Med Name: Pravastatin Sodium 20 MG Oral Tablet] 180 tablet 0 Sig: Take 1 tablet by mouth once daily Date of Encounter last in This Dept (If need an appointment send to secretaries to schedule): 04/22/23 Next Encounter in This Dept: Visit date not found Date of Last Refill (for each medication): 08/05/22#90/3 Medication category requirements (labs etc): na Status of request: Pended Pharmacy change Allergies Allergen Reactions Penicillins Anaphylaxis Tongue swelling Betamethasone hiccups after injection Dexamethasone Hiccups after injection Triamcinolone Acetonide Hiccups Fatmata Joshua CMA 04/28/23 1:38 PM documented in this encounter Plan of Treatment Upcoming Encounters Date Type Department Care Team (Late st Contact Info) Description 12/15/2024 11:30 AM EDT Office [place] [address] Charline Ziegler MD [facility] [place] [address] documented as of this encounter Visit Diagnoses Not on filedocumented in this encounter Care Teams Malt House Kiln Operator Relationship Specialty Start Date End Date Reji Adams MD [facility] [place] [address] PCP - General General Internal Medicine 07/13/15 documented as of this encounter
--- OUTSIDE RECORDS SUMMARY | 2024-07-09 11:05 | XMS_ITS | Encounter Summary ---
Author Organization [facility] Address [facility] [place] [address] Care Team Providers Care Sales Assistant Entertainment And Media Name Role Phone Reji Adams MD Primary Care Provider [phone] Reason for Visit * Consultation (Routine) - Closed Specialty Diagnoses / Procedures Referred By Duglas t Referred To Contact Hematology and Oncology Diagnoses Prostate cancer metastatic to intrapelvic lymph node Mike Louise MD [facility] [place] [address] [facility] [address] [place] [address] Referral ID Status Reason Start Date Expiration Date V isits Requested Visits Authorized [id number] Closed Consult, Test & Treat 03/06/2023 03/05/2024 1 1 Encounter Details Date Type Department Care Team (Late st Contact Info) Description 03/13/2023 10:00 AM EDT Office Visit Hematology [place] [address] Belkys Infante, PhD [facility] [address] [place] [address] Grief at loss of child; Adjustment disorder with depressed mood Social History Tobacco Use Types Packs/Day Years [...] as of this encounter Progress Notes * Belkys Infante, PhD - 03/13/2023 10:[address] [facility] PSYCHO-ONCOLOGY EVALUATION N [facility] HEMATOLOGY AND ONCOLOGY AT [facility] [address] Dept: [phone] Loc: [phone] 03/13/2023 10:13 AM REFERRAL QUESTION: Metastatic prostate cancer, sleep issues (mind racing, hot flashes, inability tofall asleep), acknowledged depression Ken Mckeon is a 77 y.o. adult who was referred by Dr. Louise to evaluate and make recommendations regarding the appropriateness of cognitive-behavioral treatment for coping with cancer diagnosis. Ken was seen for 60 minutes. he was alone, and was seen Office. . Limits to confidentiality were reviewed at the start of the session. SUMMARY Ken was referred for an evaluation of his psychological functioning secondary to a diagnosis ofprostate cancer. Main concerns: low mood, increased isolation/decreased engagement in pleasurable activities. Social support: poor for emotional support (e.g., listening, comforting) and fair for task support (e.g., transportation, daily living care). Primary support: comes from adult child(marquise) and significant other. Health behaviors: are problematic as Ken chews tobacco. TREATMENT PLAN AND RECOMMENDATIONS Reviewed the short-term nature of embedded psychosocial care at the [facility]. Specifically, treatment is focused on addressing issues associated with the cancer experience. If after a focused course of treatment Ken would continue to benefit from ongoing therapy, he will be referred out to a community provider. Ken Mckeon expressed an understanding to the above and has agreed to return in 2 Weeks to participate in individual therapy. Treatment will involve the following strategies: behavioral activation. Discussed Ken's experience at this time and shared conceptualization that Ken is struggling with grief due to his daughter's in August 2022. Discussed the unique impact that suicide has on others and how this grief can feel different from other losses. Provided Ken with information about [facility] support group for survivors of suicide loss. Discussed how Ken's uncertainty about his disease is also contributing to his mood and that Ken would benefit from developing skills to help cope with the uncertainty about the future. DIAGNOSIS Grief & Adjustment with Depressed Mood The above assessment and plan was based on the following information obtained during the appointment: MAIN CONCERN TO PATIENT I'm in limbo about my cancer - decided to stop treatment due to side effects. [place] like quality life was worsening due to treatment. Will decided next month if he wants to restart I want to be happier - notes that mood has been worsening over this year Its been a bad year - daughter completed suicide in Aug 2022 - spoke to a counselor a couple times and it was not helpful.Daughter was living in [place] and got a message from best friend informing him of SI message. Ken called police who found her. Struggles the most at night - mind racing interfering with sleep. I don't feel like I am living now - I made a promise to live as much as I could for her and by not doing it I am letting her down. Is isolating self HISTORY & IMPACT CANCER DIAGNOSIS/TREATMENT: diagnosed with prostate cancer in 2018 radical prostatectomy in April 2019 SOCIAL HISTORY/CURRENT FUNCTIONING Household composition: patient and significant other Relationship status: in a relationship for the past 15 years Quality of relationship: its peaceful co-existence Progeny: Children: 3 (2 living) Grandchildren: 3 Quality of relationship with children: supportive. Occupation: retired Leisure pursuits: loves his archery - unable to do much now due to medical changes, enjoys walking and is doing this daily, stopped kayaking due to discomfort. Daily pursuits: not doing much. Continued engagement in important activities: No - not doing much with his time MENTAL HEALTH HISTORY Prior diagnoses: anxiety Prior psychiatric hospitalizations: No Prior outpatient treatment: Yes, a couple sessions after daughter Prior suicide attempts or self-harm: No Prior substance abuse treatment:No History of trauma: childhood was rough CURRENT PSYCHOSOCIAL CONCERNS & TREATMENT Sleep Mind racing interferes with sleep Trying magnesium at night Hot flashes also interfering with sleep Anxiety 10/24/2022 12:37 PM KLAUDIA-7 Patient Reported Responses Nervous, anxious (Patient) Not at all Unable to stop worrying (Patient) Not at all Worrying about different things (Patient) Not at all Trouble relaxing (Patient) Not at all Restless (Patient) Not at all Easily annoyed, irritable (Patient) Not at all Afraid something awful will happen (Patient) Not at all Difficulty (Patient) Not difficult at all KLAUDIA-7 Score (Patient) 0 (No Anxiety) Panic Attacks: in the past Mood Mood is significantly down but would not describe self as depressed. Notes that he wants to do things but is frustrated that doesn't have others to do them with. No SI Substance Use 12/11/2022 6:28 PM Audit & Substance Use Responses Drinking frequency Never Current stressors: family. Quality of life? fair Current treatment (therapy, medication): xanax - taking it for many years. Always with him just in case. Now taking 2 at night to help with sleep - sometimes does not assist with sleep SURVIVORSHIP CONCERNS Fear of cancer recurrence: at times Avoidance of cancer reminders (thoughts/places): none COPING STYLE Ken uses the following methods to cope with difficult circumstances: connecting to nature, go for a ride, listen to music CURRENT SOCIAL SUPPORT NETWORK Primary support comes from adult child(marquise) and significant other Quality of EMOTIONAL support: poor Quality of TASK support: fair HEALTH BEHAVIORS ETOH: none; Medicinal Marijuana: no Drugs: none Nicotine: chews tobacco all day every day. Would like to quit but now is not the right time. Caffeine: 1 16 oz coke/day Exercise: walking daily MENTAL STATUS Appearance: within normal limits Behavior: within normal limits Speech: within normal limits Affect: mood congruent Suicidality/homicidality: no suicidal ideation Thought content/ process: within normal limits and goal directed Cognitive function: While not formally tested, function appears to be WNL The assessment and plan for Ken are detailed at the beginning of this report. documented in this encounter Plan of Treatment Upcoming Encounters Date Type Department Care Team (Late st Contact Info) Description 12/15/2024 11:30 AM EDT Office [place] [address] Charline Ziegler MD [facility] [place] [address] Scheduled Referrals Name Type Priority Associated Diagnoses Orde r Schedule Referral to [facility] Psychiatry (Cancer Center Patients Only) Outpatient Referral Routine Prostate cancer metastatic to intrapelvic lymph node Ordered: 03/06/2023 documented as of this encounter Visit Diagnoses Diagnosis Grief at loss of child Adjustment disorder with depressed mood Adjustment disorder with depressed mood documented in this encounter Care Teams Sales Assistant Entertainment And Media Relationship Specialty Start Date End Date Reji Adams MD [facility] [place] [address] PCP - General General Internal Medicine 07/13/15 documented as of this encounter
--- OUTSIDE RECORDS SUMMARY | 2024-07-09 11:05 | XMS_ITS | Encounter Summary ---
Author Organization [facility] Address [facility] [place] [address] Care Team Providers Care Molder Setter Name Role Phone Reji Adams MD Primary Care Provider [phone] Reason for Visit * Reason Comments Fatigue Other Urinary changes , mo re in than comes out, some burning at timesBowel changesLoses his voice, comes and goesTrouble swallowing at timesConcerns about whether he has diabetes, has some neuropathy going on Encounter Details Date Type Department Care Team (Late st Contact Info) Description 04/22/2023 3:00 PM EDT Office Visit Internal Medicine at [place] [id number] Reji Adams MD [facility] [place] [address] Pure hypercholesterolemia; Prostate cancer metastatic to intrapelvic lymph node; Constipation, unspecified constipation type; Numbness; Urinary frequency; Anemia, unspecified type; Other specified abnormal findings of blood chemistry Social History Tobacco Use Types Packs/Day Years [...] slept in a fdc (including now)? Patient refused 07/20/2021 Sex and Gender Information Value Date Recorded Sex Assigned at Choose not to disclose 02/2023 8:26 AM EDT Gender Identity Not on file Sexual Orientation Choose not to disclose 2022 8:26 AM EDT documented as of this encounter Last Filed Vital Signs Vital Sign Reading Time Taken Comments Blood Pressure 90/59 04/22/2023 3:03 PM EDT Pulse 74 04/22/2023 3:03 PM EDT Temperature 35.8 ??C (96.4 ??F) 04/22/2023 3 :03 PM EDT Respiratory Rate - - Oxygen Saturation 97% 04/22/2023 3:0 3 PM EDT Inhaled Oxygen Concentration - - Weight 89.2 kg (196 lb 9.6 oz) 04/22/2023 3:03 PM EDT with shoes on Height 180.6 cm (5' 11.1) 04/22/2023 3 :03 PM EDT reported Body Mass Index 27.34 04/22/2023 3:03 PM EDT documented in this encounter Progress Notes * Reji Adams MD - 04/22/2023 3:00 PM EDT ESTABLISHED PATIENT VISIT I. HISTORY a. Reason(s) for Visit: Ken Quiñonez Mckeon 77 y.o. adult who presents today due to complaint(s) of: Chief Complaint Patient presents with Fatigue Other Urinary changes , more in than comes out, some burning at times Bowel changes Loses his voice, comes and goes Trouble swallowing at times Concerns about whether he has diabetes, has some neuropathy going on b. History of Present Illness:[] Pt with long history of complaints about fatigue that pre-dated treatment for prostate cancer. However, today pt complaining of fatigue, bowel/bladder concerns, and wanting to discuss screening for diabetes. States does have trouble with feeling tired with walking. Does have compression fractures. Thyroid, b12, nl 10/2022. CMP unremarkable 04/09/2023 and psa undetectable. CBC with mild anemia withhgb of 13.4 04/09/2023. Testosterone low Was taking miralax daily but no longer and using citrocel and works okay to keep bowels moving. c. Review of Systems: See HPI for [...] use: Not Currently II. PHYSICAL EXAM: BP 90/59 (BP Location (NBP): Left arm, Patient Position: Sitting, BP Cuff Sizes: Adult (25-34 cm)) Pulse 74 Temp 35.8 ??C (96.4 ??F) (Temporal) Ht 180.6 cm (5' 11.1) Comment: reported Wt 89.2 kg (196 lb 9.6 oz) Comment: with shoes on SpO2 97% BMI 27.34 kg/m?? General - No acute distress, conversing without difficulty. ENT - oropharynx without lesions. Eyes - EOMI. No scleral icterus Neck - No lymphadenopathy, supple, no masses Lungs - Clear to auscultation. Heart - RRR, S1,S2, no murmur, gallop or rub. Extremities - No clubbing, cyanosis + trace edema. U/a: normal III. ASSESSMENT/PLAN:Ken Mckeon 77 y.o. adult presenting for f/u. I think most of patients symptoms are likely related to undetectable testosterone. However, given some neuropathy will workup. Ken was seen today for fatigue and other. Diagnoses and all orders for this visit: Prostate cancer metastatic to intrapelvic lymph node - Cont to follow with oncology Constipation, unspecified constipation type - Cont prn miralax and cont fiber supplements Numbness - Protein Electrophoresis, serum; Future - Protein Electrophoresis, urine, random; Future - Free Light Chains, Serum; Future - Hemoglobin A1c; Future - Protein Electrophoresis, serum - Protein Electrophoresis, urine, random - Free Light Chains, Serum - Hemoglobin A1c Urinary frequency - POCT urine dipstick; Future Anemia, unspecified type - Iron and TIBC; Future - Ferritin; Future - Iron and TIBC - Ferritin Other specified abnormal findings of blood chemistry - Hemoglobin A1c; Future - Hemoglobin A1c Meds reconciled documented in this encounter Plan of Treatment Upcoming Encounters Date Type Department Care Team (Late st Contact Info) Description 12/15/2024 11:30 AM EDT Office Visit [place] [address] Charline Ziegler MD [facility] [place] [address] documented as of this encounter Procedures Procedure Name Priority Date/Time Associated Diagnosis Comments PROTEIN ELECTROPHORESIS, URINE, RANDOM Routine 04/22/2023 4:47 PM EDT Numbness IMMUNOGLOBULIN FREE LIGHT CHAINS, SERUM Routine 04/22/2023 3:51 PM EDT Numbness IRON AND TIBC Routine 04/22/2023 3:51 PM EDT Anemia, unspecified type HC VENIPUNCTURE Routine 04/22/2023 3:51 PM EDT Numbness HEMOGLOBIN A1C Routine 04/22/2023 3:51 PM EDT Numbness Other specified abnormal findings of blood chemistry FERRITIN Routine 04/22/2023 3:51 PM EDT Anemia, unspecified type POCT URINE DIPSTICK Routine 04/22/2023 3 :10 PM EDT Urinary frequency documented in this encounter Results * Protein Electrophoresis, urine, random (04/22/2023 4:47 PM EDT) [facility] Protein, Urine <6 0 - 12 mg/dL [facility] U Albumin See Note [facility] Comment:No protein visible v ia electrophoresis due to a low urine total protein. Globulin, Urine See Note [facility] Comment:No protein visible v ia electrophoresis due to a low urine total protein. M1 Band, Urine See Note [facility] Comment:No protein visible v ia electrophoresis due to a low urine total protein. Urine 04/22/2023 4:47 PM EDT 04/22/2023 9:43 PM EDT Narrative Resulting Agency Comment Spec In Lab Reji Adams MD URINE ORDERABLES Performing Organization Address [facility] Co de Phone Number [facility] [place] [address] * Ferritin (04/22/2023 3:51 PM EDT) Pathologist [facility] Ferritin 187 30 - 400 ng/mL [facility] Comment: Pediatric reference ranges not verified at [facility], interpret with caution. Reference ranges for females greater than 50 years of age approach values for men, i.e., 30-400 ng/mL. Blood 04/22/2023 3:51 PM EDT 04/22/2023 9:02 PM EDT Narrative Resulting Agency Comment Spec In Lab Reji Adams MD CHEMISTRY ORDERABLES [facility] [place] [address] * Iron and TIBC (04/22/2023 3:51 PM EDT) Iron 73 45 - 160 mcg/dL [facility] TIBC 281 250 - 450 mcg/dL [facility] Iron Saturation 26 20 - 50 % [facility] Blood 04/22/2023 3:51 PM EDT 04/22/2023 9:04 PM EDT Narrative Resulting Agency Comment Spec In Lab Reji Adams MD CHEMISTRY ORDERABLES [facility] [place] [address] * Hemoglobin A1c (04/22/2023 3:51 PM EDT) Pathologist [facility] Hemoglobin A1c 4.9 4.3 - 5.6 % [facility] Comment: Reference Range: 4.3 - 5.6% 5.7 - 6.4% - Increased Risk of Developing Diabetes Mellitus >= 6.5% - Consistent with diagnosis of Diabetes Mellitus In the absence of hyperglycemia (i.e. plasma glucose > 200 mg/dL) or classic symptoms of hyperglycemia a repeat measurement of HbA1c should be performed on a separate sample to confirm the diagnosis. Diagnosis and Classification of Diabetes Mellitus, Diabetes Care 2013; 36: Suppl. 1, W98-04 Estimated Average Glucose See note mg/dL [facility] Comment: Estimated Average Glucose not appropriate for patients over 70 years of age. eAG equivalents for HbA1c percentages: HbA1c(%) ?eAG(mg/dL) 6.0 ?126 6.5 ?140 7.0 ?154 7.5 ?169 8.0 ?183 8.5 ?197 9.0 ?212 9.5 ?226 10.0 ? 240 Limitations: The eAG calculation has not been validated on women, individuals below 18 years old and above 70 years old, and individuals with hemoglobinopathies. Additional resources are available on the ADA website. Puneet MCADAMS, Abhay J, Ines R, et al. ??Translating the A1C assay into estimated average glucose values. ??Diabetes Care 2008:31(8):2592-8415. Blood 04/22/2023 3:51 PM EDT 04/22/2023 9:01 PM EDT Narrative Resulting Agency Comment Spec In Lab Reji Adams MD CHEMISTRY ORDERABLES Performing Organization Address [facility] de Phone Number [facility] [place] [address] * Free Light Chains, Serum (04/22/2023 3:51 PM EDT) Gerster Free Light Chain 2.07 0.72 - 2.75 mg/dL [facility] Lambda Free Light Chain 1.14 0.57 - 2.15 mg/dL [facility] Gerster/Lambda FLC Ratio 1.8158 0.4000 - 2.5800 [facility] Blood 04/22/2023 3:51 PM EDT 04/22/2023 9:01 PM EDT Narrative Resulting Agency Comment Spec In Lab Reji Adams MD CHEMISTRY ORDERABLES Performing Organization Address [facility] de Phone Number [facility] [place] [address] * Protein Electrophoresis, serum (04/22/2023 3:51 PM EDT) Total Prot Electrophoresis 6.3 6.1 - 8.0 g/dL [facility] Albumin Electrophoresis 4.38 3.20 - 5.20 g/dL [facility] Alpha 1 Globulin 0.14 0.10 - 0.30 g/dL [facility] Alpha 2 Globulin 0.57 0.40 - 0.90 g/dL [facility] Beta Globulin 0.53 0.50 - 1.00 g/dL [facility] Gamma Globulin 0.67 0.50 - 1.30 g/dL [facility] M1 Band None Detected None Detected [facility] Blood 04/22/2023 3:51 PM EDT 04/22/2023 9:02 PM EDT Narrative Resulting Agency Comment Spec In Lab Reji Adams MD CHEMISTRY ORDERABLES [facility] [place] [address] * POCT urine dipstick (04/22/2023 3:10 PM EDT) POC Sp [place] 1.010 1.002 - 1.030 POC pH, UA 5 5.0 - 8.5 POC Leuk, UA neg Negative - Negative POC Nitrite, UA neg Negative - Negative POC Protein, UA neg Negative - Negative mg/dL POC Glucose, UA norm Normal - Normal mg/dL POC Ketone, UA neg Negative - Negative POC Urobil, UA norm 0.2 - 1.0 mg/dL POC Bili, UA neg Negative - Negative POC Blood, UA neg Negative - Negative denise/uL 04/22/2023 3:10 PM EDT Reji Adams MD POINT OF CARE TEST O RDERABLES documented in this encounter Visit Diagnoses Diagnosis Pure hypercholesterolemia Prostate cancer metastatic to intrapelvic lymph node Constipation, unspecified constipation type Numbness Disturbance of skin sensation Urinary frequency Anemia, unspecified type Other specified abnormal findings of blood chemistry documented in this encounter Care Teams Molder Setter Relationship Specialty Start Date End Date Reji Adams MD [facility] [place] [address] PCP - General General Internal Medicine 07/13/15 documented as of this encounter
--- OUTSIDE RECORDS SUMMARY | 2024-07-09 11:05 | XMS_ITS | Encounter Summary ---
Author Organization [facility] [place] [address] Care Team Providers Care Dosier Operator Name Role Phone Reji Adams MD Primary Care Provider [phone] Encounter Details Date Type Department Care Team (Latest Contact Info) Description 04/18/2023 Travel Social History Tobacco Use Types Packs/Day [...] in a skilled nursing (including now)? Patient refused 07/20/2021 Sex and [...] 11:30 AM EDT [place] [address] Charline Ziegler MD [facility] [place] [address] documented as of this encounter Visit Diagnoses Not on filedocumented in this encounter Care Teams Dosier Operator Relationship Specialty Start Date End Date Reji Adams MD [facility] [place] [address] PCP - General General Internal Medicine 07/13/15 documented as of this encounter
--- OUTSIDE RECORDS SUMMARY | 2024-07-09 11:05 | XMS_ITS | Encounter Summary ---
[place] [address] Care Team Providers Care Induction Machine Setter Name Role Phone Reji Adams MD Primary Care Provider [phone] Reason for Visit * Diagnostic Test (Routine) - Closed Specialty Diagnoses / Procedures Referred By Contac t Referred To Contact Radiology Diagnoses Thoracic back pain, unspecified back pain laterality, unspecified chronicity Procedures MRI Thoracic Spine wo Contrast (Generic) MRI Thoracic Spine wwo Contrast MRI Thoracic Spine wo Contrast (Generic) Loreta Forbes MD [address] [place] [address] [place] [address] Referral ID Status Reason Start Date Expiration Date V isits Requested Visits Authorized [id number] Closed Specialty Service Requested 04/15/2023 10/13/2024 1 1 Encounter Details Date Type Department Care Team (Latest Contact Info) Description 04/18/2023 10:26 AM EDT - 04/18/2023 11:59 PM EDT [place] [address] Loreta Forbes MD [address] [place] [id number] Thoracic back pain, unspecified back pain laterality, unspecified chronicity Discharge Disposition: Home Social History Tobacco Use [...] 11:30 AM EDT Office [place] [address] Charline Ziegler MD [facility] [place] [address] documented as of this encounter Procedures Procedure Name Priority Date/Time Associated Diagnosis Comments MRI THORACIC SPINE WITHOUT CONTRAST Routine 04/18/2023 12:27 PM EDT Thoracic back pain, unspecified back pain laterality, unspecified chronicity documented in this encounter Results * MRI Thoracic Spine wo Contrast (Generic) (04/18/2023 12:27 PM EDT) Anatomical Region Laterality Modality T-spine Magnetic Resonan ce Impressions 04/18/2023 2:56 PM EDT No unhealed compression fracture. No new or enlarging disc herniation. Thank you for letting us participate in the care of this patient. ??If you are a health care provider and have any questions regarding this report, please contact the number below. ??For patients who have questions please contact the health career center advisor that requested your imaging first. ? Electronically signed by: Logan Myrick MD, [facility] ([phone]), at 04/18/2023 2:56 PM Narrative 04/18/2023 2:56 PM EDT EXAMINATION: MRI THORACIC SPINE WO CONTRAST (GENERIC) CLINICAL HISTORY: Thoracic back pain, history of lumbar compression fractures, osteoporosis and prostate cancer TECHNIQUE: MRI of the thoracic spine performed without intravenous contrast administration. COMPARISON: MRI of thoracic spine of 04/09/2022 FINDINGS: Vertebral height, alignment, and marrow signal are unchanged. No marrow edema is present. The thoracic spinal cord is of normal contour and signal characteristics. No disc extrusion or mass is evident. No paraspinous mass is present. Small disc protrusions are present at several levels none producing more than minor effacement of the ventral subarachnoid space. The disc protrusion at T11-12 is similar to that present on the prior study Procedure Note Logan Myrick MD - 04/18/2023 EXAMINATION: MRI THORACIC SPINE WO CONTRAST (GENERIC) CLINICAL HISTORY: Thoracic back pain, history of lumbar compression fractures, osteoporosisand prostate cancer TECHNIQUE: MRI of the thoracic spine performed without intravenous contrastadministration. COMPARISON: MRI of thoracic spine of 04/09/2022 FINDINGS: Vertebral height, alignment, and marrow signal are unchanged. No marrowedema is present. The thoracic spinal cord is of normal contour and signal characteristics. No disc extrusion or mass is evident. No paraspinous massis present. Small disc protrusions are present at several levels noneproducing more than minor effacement of the ventral subarachnoid space. The disc protrusion at T11-12 is similar to that present on the prior study IMPRESSION No unhealed compression fracture. No new or enlarging disc herniation. Thank you for letting us participate in the care of this patient. If youare a health care provider and have any questions regarding this report,please contact the number below. For patients who have questions please contactthe health career center advisor that requested your imaging first. Loreta Forbes MD IMG MRI ORDERABLES documented in this encounter Visit Diagnoses Diagnosis Thoracic back pain, unspecified back pain laterality, unspecified chronicity documented in this encounter Care Teams Induction Machine Setter Relationship Specialty Start Date End Date Reji Adams MD [facility] [place] [address] PCP - General General Internal Medicine 07/13/15 documented as of this encounter
--- OUTSIDE RECORDS SUMMARY | 2024-07-09 11:05 | XMS_ITS | Encounter Summary ---
Author Organization [facility] Address [address] [facility] [place] [address] Care Team Providers Care Valet Parking Attendant Name Role Phone Reji Adams MD Primary Care Provider [phone] Reason for Visit * Reason Comments Back Pain Neck Pain Encounter Details Date Type Department Care Team (Late st Contact Info) Description 05/13/2023 11:20 AM EDT Office Visit [facility] [address] [place] [address] Andrea Ortega, PT Chronic thoracic spine pain Social History Tobacco Use Types Packs/Day [...] as of this encounter Miscellaneous Notes * Treatment - Therapy - Andrea Ortega, PT - 05/13/2023 11:20 AM EDT [facility] Follow-up Visit 1 Subjective Exam: Had significant pain with one of the exercises. Tried doing it for 3 days to see if it would improve, but it did not. Had an increase in neck pain with walking 45 minutes. This takes about 5 minutes of lying down to get better. Goals for participating in PT: Dreamed of shooting his bow in the [employer], but now wanting to return to organized [employer], and walking/hiking with less pain. Objective Findings: Postural Findings: Head Position: Mild protraction Shoulder Position: Mild protraction Thoracic Kyphosis: Slightly increased Lumbar Lordosis: Normal - fused Using SPC on the R side for balance. Treatment: Education on exam findings and rationale for POC to include graded exposure to movement in all planes, education on the interventions being provided, and symptom management strategies. Access Code: [email or web address] URL: [email or web address] Date: 05/13/2023 Prepared by: Andrea Ortega Exercises - Sidelying Open Book - 1 x daily - 7 x weekly - 2 sets - 10 reps - Squatting Shoulder Row with Anchored Resistance - 1 x daily - 7 x weekly - 2 sets - 15 reps - Shoulder extension with resistance - Neutral - 1 x daily - 7 x weekly - 2 sets - 15 reps - Supine Pectoralis Stretch - 1 x daily - 7 x weekly - 2 sets - 15 reps - Reviewed Supine Chest Stretch with Elbows Bent - 1 x daily - 7 x weekly - 2 sets - 15 reps - had been trying to force elbows together versus stretch the chest. Time Spent with Patient: 40 Minutes Assessment: Gregg returns for first follow-up with similar complaints overall. Exercise that was bothersome from eval was being done incorrectly by moving in the opposite direction of focus which caused more pain in the shoulder. With the exercise done correctly, there was no increase in symptoms during session. We added additional exercise to improve mobility in the trunk and these were performed with some challenge, but overall did not increase symptoms. It will be important to improve mobility and strength in the torso to improve load distribution around the compression fracture. Plan: Recommend PT 1x/2 weeks for 8 weeks with focus on postural mobility and stability training, body awareness, and education focused on improving patient understanding in rationale behind interventions.Review past pt exercises, PNE, standing extensions at the wall, shoulder flexion from sitting. Goals: In 4 weeks, patient will report 50% or greater compliance with HEP to demonstrate improvement in self-management of symptoms. In 4 weeks, patient will demonstrate effective use of two or greater symptom management tools to improve overall function. In 4 weeks, patient will verbalize understanding of importance of increasing movement and functional activity to improve joint and tissue mobility to demonstrate adequate understand and promote compliance to HEP. In 8 weeks, patient will report improvement in symptoms of >/= 20% compared to evaluation. documented in this encounter Plan of Treatment Upcoming Encounters Date Type Department Care Team (Late st Contact Info) Description 12/15/2024 11:30 AM EDT Office [place] [address] Charline Ziegler MD [facility] [place] [address] documented as of this encounter Visit Diagnoses Diagnosis Chronic thoracic spine pain Pain in thoracic spine documented in this encounter Care Teams Valet Parking Attendant Relationship Specialty Start Date End Date Reji Adams MD [facility] [place] [address] PCP - General General Internal Medicine 07/13/15 documented as of this encounter
--- OUTSIDE RECORDS SUMMARY | 2024-07-09 11:05 | XMS_ITS | Encounter Summary ---
Author Organization [facility] Address [facility] [place] [address] Care Team Providers Care Historical Manuscripts Curator Name Role Phone Reji Adams MD Primary Care Provider [phone] Reason for Visit * Physical Therapy (Routine) - Closed Specialty Diagnoses / Procedures Referred By Duglas t Referred To Contact Physical Therapy Diagnoses SNHL (sensory-neural hearing loss), asymmetrical Dysequilibrium Left ear pain Zurdo Aguiar PA [facility] [place] [address] [facility] [place] [address] Referral ID Status Reason Start Date Expiration Date V isits Requested Visits Authorized [id number] Closed Evaluate and Treat 12/09/2022 12/09/2023 100 100 Encounter Details Date Type Department Care Team (Late st Contact Info) Description 03/03/2023 10:15 AM EDT Office [place] [address] Trice Hagan, PT At risk for falls; Age-related osteoporosis with current pathological fracture, sequela; Impaired mobility and activities of daily living Social History Tobacco Use Types Packs/Day Years [...] as of this encounter Miscellaneous Notes * Initial Evaluation - rTice Hagan, PT - 03/03/2023 10:15 AM EDT Images from the original note were not included. Physical Therapy Initial Evaluation Note: Outpatient Date of Exam/First treatment: 03/03/2023 Date of Referral: 12/09/22 Onset date: >6 mos ago Referring Provider: MATT Baker Primary Insurance: Payor: MEDICARE / Plan: MEDICARE PART A & B / Product Type: *No Product type* / Medicare Cert Period: 03/03/2023 - 05/31/23 Diagnosis: ICD-10-CM 1. At risk for falls Z91.81 2. Age-related osteoporosis with current pathological fracture, sequela M80.00XS 3. Impaired mobility and activities of daily living Z74.09 Z78.9 Past Medical History: Diagnosis Date BPH (benign prostatic hyperplasia) Neck pain 08/24/2012 OA (osteoarthritis) of knee right Spinal cord injury at 2016 Patient Active Problem List Diagnosis Age-related osteoporosis [...] hearing loss Right arm numbness Peripheral neuropathy Overview Note: Diagnosis in progress, decrease in sharp sensation, and vibratory sensation in b/l feet Urinary urgency Overview Note: W/ hesitency, given duration, likely BPH Cervical stenosis of spinal canal Depression Cervical radiculopathy Neck pain Anxiety OA (osteoarthritis) of knee Overview Note: right Cataract extraction status of left eye Status post total knee replacement Overview Note: TKR Right knee in 2007 Current Outpatient Medications: ALPRAZolam (Xanax) 0.25 mg tablet, Take 1 tablet by mouth 3 times daily as needed for Anxiety., Disp: 70 tablet, Rfl: 0 triamcinolone acetonide (NASACORT ALLERGY NASL), by Nasal route daily. PRN, Disp: , Rfl: hydroCHLOROthiazide (Microzide) 12.5 mg capsule, Take 1 capsule by mouth daily. (Patient not taking: Reported on 01/10/2023), Disp: 90 capsule, Rfl: 3 polyethylene glycoL (Miralax) 17 gram/dose Powder, Take 17 g by mouth daily., Disp: , Rfl: pravastatin (Pravachol) 20 mg Tablet, Take 1 tablet by mouth daily., Disp: 90 tablet, Rfl: 3 leuprolide, 3 month, (Eligard) Syringe, Inject 22.5 mg subcutaneously once., Disp: , Rfl: tadalafiL (CIALIS) 5 mg Tablet, Take 5 mg by mouth as needed for Erectile Dysfunction., Disp: , Rfl: acetaminophen (TYLENOL) 650 mg Tablet Sustained Release, Take 650 mg by mouth every 8 hours as needed for Pain. Do not exceed 6 tabs in 24 hours, Disp: , Rfl: aspirin 81 mg Tablet, Delayed Release (E.C.), Take 81 mg by mouth daily., Disp: , Rfl: multivitamin (THERAGRAN) tablet, Take 1 tablet by mouth daily., Disp: , Rfl: CURRENT HISTORY Ken Mckeon is a 77 y.o. adult referred to physical therapy for vestibular evaluation. Patient had seen Enoch Aguiar in ENT in November and was referred for a balance evaluation. In the interim, patienthaisaac had significant thoracic back pain. Recent imaging in [place] with Dr. Willis shows multiple thoracic compression fx and osteoporotic changes with recommendation made to complete PT. He tried PT but was dissatisfied with some of the recommendations and had worse pain. He has a history of multiplespine surgeries in lumbar and cervical region as well as a ROYAL and R TKA. Since seeing Enoch Aguiar in ENT in November 2022, his complaints of ear pain have resolved. He is not concerned with his balance, and more concerned with his back pain. He sees pain and spine in a few weeks, and is more interestedin doing a general balance screen today and then to follow up with PT again after he sees spine andpain. Denies vertigo symptoms. Social history/Personal factors affecting plan of care: Work: not working Living situation: uses a walking stick like a cane for balance around the house. Has a front wheeled walker if needed. Transportation: no issues driving Hobbies: walking, hiking, archery Current exercise: walks, but is limited to about 10 min due to intense back pain Barriers: history of multiple orthopedic surgeries. Current level of function: difficulty with walking >10 minutes, doing archery (his hobby), lifting things from the floor, getting up from a chair at times, hiking. 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 Patient's goals for physical therapy: assess balance Pain: 0/10 currently in spine CLINICAL FINDINGS: EXAMINATION Sensation: baseline parasthesias, not changed OCULOMOTOR EXAM: In room light Central signs: Test Results Smooth pursuit horizontal normal Smooth pursuit vertical normal Gaze holding nystagmus no nystagmus noted Spontaneous nystagmus no nystagmus noted Saccades normal, accurate, no overshooting noted Test of skew and cross-cover: not examined Horizontal ocular laterodeviation (eyes closed 3-5s, then open) not examined Vergence Normal <5cm considered normal VOR cancellation normal Peripheral signs: Test Results VOR slow normal VOR head impulse test RIGHT negative VOR head impulse test LEFT negative Gaze holding nystagmus within normal limits Dynamic visual acuity Not tested Loss of < 3 lines of visual acuity during dynamic testing conditions is considered ? within normal limits?? . Loss of 3 or more lines is suggestive of potential vestibular dysfunction. (Margarita, 2008) Gait: 10 meter walk test - Gait Speed Device Assistance Level Comfortable vs. Fast walk speed Gait Speed in meters/second (10 meter walk test) Comments cane Mod ind comfortable 0.63 m/s cane Mod ind fast 0.97 m/s Suggests that patient is at risk for falls \ and is classified as a limited community level ambulator at self selected speed. Renato Camacho, Jose Maria ANDERSEN, Donis Conrad. Walking speed: the functional vital sign. J Aging Phys Act. 2015;23(2):314?322. doi:10.1123/japa.4755-2059 Functional Gait Assessment Functional Gait Assessment (scale 0-3, 3 = normal 0 = severe impairment) Score Comments 1. Gait level Surface 2 slower speed 2. Change in Gait Speed 2 minimal change in speed 3. Gait with horizontal head turns 3 no imbalance 4. Gait with vertical head turns 3 no imbalance 5. Gait and pivot turn 3 slowed, but still <3s 6. Step over obstacle 2 requires cane 7. Gait with narrow base of support 0 3 steps 8. Gait with eyes closed 2 slowed, but straight pathway 9. Ambulating backwards 2 slowed 10. Steps 1 requires rail due to pain ; descends with step to pattern Total Score = 20 /30 InsertFromSpreadsheet Score of 22 or less = fall risk community dwelling older adults, Nataly 2010 MCID 8 points, vestibular disorder, Alejandro and Regina, 2010 MCID 4 points for 60+ year old, Markus et al. 2014 Modified Clinical Test of Sensory Interaction in Balance (mCTSIB) Patient position: feet together, arms at sides Condition Trial Time (s) Comment Eyes open, firm surface 1 30s 2 3 Eyes closed, firm surface 1 30s 2 3 Eyes open, foam surface 1 30s 2 3 Eyes closed, foam surface 1 4s Anterior and left loss of balance 2 8s Anterior and left loss of balance 3 10s Anterior and left loss of balance Begin timing each trial using a stopwatch. The trial is over when (a) the participant opens his/her eyes in an eyes closed condition, (b) raises arms from sides, (c) loses balance and requires manual assistance to prevent a fall. Attempt to hold each position 30 seconds. Administer only onetrial per condition if participant able to complete first trial without loss of balance. The 4 Stage Balance Test: I'm going to show you 4 positions. Try to rigging worker each position for 10 seconds. You can hold yourarms out or move your body to help keep your balance but don't move your feet. Eyes open, no assistive device. Position Time (assessed up to 10 seconds) Romberg 10 Also able to maintain Romberg with eyes closed for 10 seconds Semi-tandem 10 Able to assume position without UE assist Tandem 5 Able to assume position without UE assist Single limb stance R 3s, 6s; L 2s, 4s Inability to perform tandem stance for at least 10 sec indicates increased risk of falling. Subha Quick, Aranza S, Jonnathan Olson. A cross-sectional validation study of the BestSecret.comSIT common database static balance measures. Gerontol A Biol Sci Med Sci 1995;50A(6):A741-G966. Dizziness Handicap Inventory (DHI): The higher the score, the greater perceived handicap due to dizziness 03/02/2023 2:53 PM Dizziness Handicap Inventory 1. Does looking up increase your problem? Sometimes 2. Because of your problem, do you feel frustrated? Sometimes 3. Because of your problem, do you restrict your travel for business or pleasure? Sometimes 4. Does walking down the aisle of a supermarket increase your problem? No 5. Because of your problem, do you have difficulty getting into or out of bed? No 6. Does your problem significantly restrict your participation in social activities such as going out to dinner, the movies, dancing or to parties? No 7. Because of your problem, do you have difficulty reading? No 8. Does performing more ambitious activities like sports, dancing, or personal development educator such as sweeping or putting dishes away increase your problem? Yes 9. Because of your problem, are you afraid to leave your home without having someone accompany you?No 10. Because of your problem, are you embarrassed in front of others? No 11. Do quick movements of your head increase your problem? No 12. Because of your problem, do you avoid heights? No 13. Does turning over in bed increase your problem? No 14. Because of your problem, is it difficult for you to do strenuous housework or yard work? Yes 15. Because of your problem, are you afraid people may think that you are intoxicated? No 16. Because of your problem, is it difficult to go for a walk by yourself? Yes 17. Does walking down a sidewalk increase your problem? No 18. Because of your problem, is it difficult for you to concentrate? No 19. Because of your problem, is it difficult for you to walk around your house in the dark? No 20. Because of your problem, are you afraid to stay home alone? No 21. Because of your problem, do you feel handicapped? No 22. Has your problem placed stress on your relationships with members of your family or friends? No 23. Because of your problem, are you depressed? No 24. Does your problem interfere with your job or household responsibilities? No 25. Does bending over increase your problem? Sometimes Total Physical 4 Total Emotional 2 Total Functional 14 Total DHI Score 20 (Mild Handicap) CLINICAL EVALUATION: Ken Mckeon is a 77 y.o. adult who presents to physical therapy for vestibular and balance evaluation, with history of multiple spine surgeries, history of ear pain, history of falls, and current thoracic compression fractures with osteoporosis. Results of oculomotor testing were within normal limits. Bilateral head impulse test indicates appropriate vestibulo-ocular reflex function. No indication of BPPV. He demonstrates decreased postural stability and slowed gait speed and is at increased risk of falls based on performance on the 10 meter walk test, Functional Gait Assessment and modified CTSIB test. He uses a cane at baseline, though can walk short household distances safely without a cane. Patient is limited in walking tolerance to approx 10 min due to thoracic pain. He is also limited in functional mobility due to thoracic pain and compression fx. Deferred CDP testing due to back pain and no indication of peripheral vestibular dysfunction. These impairments increase difficulty with bending, lifting as part of ADLs, walking community distances and participating in recreation. It is likely that his decreased tolerance with activity due to pain is contributing to decrease in balance over time. Prognosis is good for stated goals. Damion Mckeon would benefit from skilled physical therapy focused on balance, strength, mobility and with respect to diagnosis of osteoporosis, in order to improve functional mobility and reduce risk of falls. Clinical presentation: Stable Evolving Unstable X Clinical decision making of moderate complexity using standardized patient assessment instrument and measurable assessment of functional outcome, number of comorbidities influencing plan of care and prognosis, and number of body systems and functions assessed. INITIAL TREATMENT INCLUDED: Examination and instruction in a home exercise program (refer to scan doc in chart review for details), patient education regarding physical therapy plan of care, anatomy, physiology, and diagnosis. Patient education: components of balance, contribution of strength to stability, role of exercise in neuroplasticity Self-care / Home management - 44899 - 20 min Nivia's decompression exercises - handout provided Nivia's ADL handout provided Nivia's theraband for postural strengthening exercises provided - issued red and green tband Sit to stand technique - hip hinge Golfer's reach - hip hinge with hand support on table PLAN: Current HEP: - nivia's theraband exercises - continue with walking Treatment may include: Manual Techniques, Soft Tissue Mobilization, Stretching, Joint Mobilization,Therapeutic Exercise, Modalities (PRN to control pain and inflammation) hot or cold pack, Patient/Family Education, Body Mechanics, Posture, Home Exercise Program, Balance and Gait Training, Biofeedback, Pain Science Education, Vestibular Interventions and Telehealth Frequency and duration: 1x every other week x3 sessions, adding or tapering as appropriate based onclinical and functional progress. Patient is going to see pain and spine and then follow up with PTto schedule. Further assessment / planned intervention for next visit: Add tandem stance, limits of stability to HEP GOALS Outcome Measure Data Tracker - Date 03/03/23 DHI (self-report, higher score indicates greater perceived deficit) 20 Functional Gait Assessment (higher score = better dynamic balance, </= 22 is fall risk) 20 Modified CTSIB condition 4 10s CDP sensory score Status Short Term Goals By 04/03/23 patient will... Be independent with home exercise program. Patient to demonstrate the golfer's reach to shredder picker a bag from the ground, with minimal increase in pain, to demonstrate improved form with ADLs. Patient to complete the 5 time sit to stand test with <3/10 back pain and appropriate use of thehip hinge technique. Walk 10 meters while performing horizontal, vertical, and diagonal head turns without gait path deviation, imbalance, or decrease in gait speed, in order to improve balance while looking around during ADLs and community ambulation. Demonstrate improved static standing balance as evidenced by demonstrating romberg stance on foam with eyes closed for 15 seconds to improve ability to step onto uneven surfaces during ADLs. Status Collection Card Clerk Goals By 05/03/23 patient will... Increase gait speed from 0.6 m/s to 0.7 m/s with LRAD during performance of 10 Meter Walk Test selfselected speed to demonstrate improved community distance ambulation speed. Reduce fall risk as evidenced by increasing score on the Functional Gait Assessment from 20/30 at initial evaluation to at least 24/30. Be engaged in a community based or home based strengthening and balance exercise program. Untimed Evaluation Code: Evaluation MODERATE Complexity (79922) Timed treatment codes: Self Care/Home Management (45632) 20 min Total session time: 60 minutes Informed Consent: The patient consented to the physical therapy evaluation. Plan of care and goals established with patient. Patient in agreement with visit frequency and expected length of episode. Trice Hagan, PT, DPT Physical Therapist [facility] documented in this encounter Plan of Treatment Upcoming Encounters Date Type Department Care Team (Late st Contact Info) Description 12/15/2024 11:30 AM EDT Office [place] [address] Charline Ziegler MD [facility] [place] [address] documented as of this encounter Procedures Procedure Name Priority Date/Time Associated Diagnosis Comments PT PLAN OF CARE CERT/RE-CERT Routine 03/03/2023 11:36 AM EDT At risk for falls Age-related osteoporosis with current pathological fracture, sequela Impaired mobility and activities of daily living documented in this encounter Visit Diagnoses Diagnosis At risk for falls Personal history of fall Age-related osteoporosis with current pathological fracture, sequela Impaired mobility and activities of daily living Mechanical problems with limbs documented in this encounter Care Teams Historical Manuscripts Curator Relationship Specialty Start Date End Date Reji Adams MD [facility] [place] [address] PCP - General General Internal Medicine 07/13/15 documented as of this encounter
--- OUTSIDE RECORDS SUMMARY | 2024-07-09 11:05 | XMS_ITS | Encounter Summary ---
Author Organization [facility] [place] [address] Care Team Providers Care Associate Consulting Engineer Name Role Phone Reji Adams MD Primary Care Provider [phone] Reason for Visit * Diagnostic Test (Routine) - Closed Specialty Diagnoses / Procedures Referred By Contac t Referred To Contact Radiology Diagnoses Prostate cancer metastatic to intrapelvic lymph node Procedures NM PET CT PSMA Prostate (Illuccix) Mike Louise MD [facility] [address] [place] [address] [place] [address] Referral ID Status Reason Start Date Expiration Date V isits Requested Visits Authorized [id number] Closed Specialty Service Requested 11/20/2022 05/22/2024 1 2 Encounter Details Date Type Department Care Team (Latest Contact Info) Description 04/09/2023 9:42 AM EDT - 04/09/2023 11:59 PM EDT Hospital En[place] [address] Mike Louise MD [facility] [place]OLOG[place] [address] Discharge Disposition: Home Social History Tobacco Use [...] 11:30 AM EDT Office [place] [address] Charline Ziegler MD [facility] [place] [address] documented as of this encounter Procedures Procedure Name Priority Date/Time Associated Diagnosis Comments NM PET CT PSMA PROSTATE (ILLUCCIX) Routine 04/09/2023 11:33 AM EDT Prostate cancer metastatic to intrapelvic lymph node documented in this encounter Results * NM PET CT PSMA Prostate (Illuccix) (04/09/2023 11:33 AM EDT) Anatomical Region Laterality Modality Positron Emissio n Tomography (PET) Impressions 04/09/2023 3:44 PM EDT No evidence of active local or metastatic prostate malignancy. Thank you for referring this patient to [facility]. I have personally reviewed the image(s) and the resident's interpretation and agree with the findings, Sarah Echeverria MD at 04/09/2023 3:44 PM Thank you for letting us participate in the care of this patient. ??If you are a health care provider and have any questions regarding this report, please contact the number below. ??For patients who have questions please contact the health care information associate that requested your imaging first. ? Narrative 04/09/2023 3:44 PM EDT EXAMINATION: NM PET CT PSMA PROSTATE (ILLUCCIX) CLINICAL HISTORY: Prostate cancer, assess treatment response Patient has undergone prostatectomy, radiation therapy, and ADT. TECHNIQUE: Following IV injection of Ga 68 PSMA-11 (Illuccix) and a standard uptake of approximately 60 minutes, a noncontrast CT scan followed by a PET scan were acquired from the top of the head to mid thighs. The noncontrast CT was used for anatomic localization and photon attenuation correction of the PET scan. Ga 68 PSMA-11 (Illuccix) Dose: 6.2 mCi COMPARISON: None FINDINGS: HEAD/NECK: Normal activity in all soft tissue regions of the neck and visualized lower head. Physiologic activity present in the lacrimal and salivary glands. Activity adjacent to the right masseter muscle likely represents accessory parotid tissue. CHEST: Normal activity in all soft tissue regions. ABDOMEN/PELVIS: Normal activity in all soft tissue regions. Physiologic activity is present in the liver, spleen, collecting system, and GI tract. Postoperative changes of prior prostatectomy. No abnormal tracer activity within the surgical bed. Previously questioned tracer uptake in external iliac nodes is not seen today. No focal tracer uptake in the left L2 pedicle is seen either. SKELETON/EXTREMITIES: Normal activity in all regions of the axial and visualized appendicular skeleton. Postoperative changes of prior C3-C5 ACDF, as well as cement from L5 vertebroplasty and sacroplasty. Procedure Note Sarah Echeverria MD - 04/09/2023 EXAMINATION: NM PET CT PSMA PROSTATE (ILLUCCIX) CLINICAL HISTORY: Prostate cancer, assess treatment response Patient has undergone prostatectomy, radiation therapy, and ADT. TECHNIQUE: Following IV injection of Ga 68 PSMA-11 (Illuccix) and astandard uptake of approximately 60 minutes, a noncontrast CT scan followed by aPET scan were acquired from the top of the head to mid thighs. The noncontrast CTwas used for anatomic localization and photon attenuation correction of thePET scan. Ga 68 PSMA-11 (Illuccix) Dose: 6.2 mCi COMPARISON: None FINDINGS: HEAD/NECK: Normal activity in all soft tissue regions of the neck and visualizedlower head. Physiologic activity present in the lacrimal and salivary glands.Activity adjacent to the right masseter muscle likely represents accessoryparotid tissue. CHEST: Normal activity in all soft tissue regions. ABDOMEN/PELVIS: Normal activity in all soft tissue regions. Physiologic activity ispresent in the liver, spleen, collecting system, and GI tract. Postoperative changes of prior prostatectomy. No abnormal tracer activitywithin the surgical bed. Previously questioned tracer uptake in external iliac nodes is not seentoday. No focal tracer uptake in the left L2 pedicle is seen either. SKELETON/EXTREMITIES: Normal activity in all regions of the axial and visualized appendicular skeleton. Postoperative changes of prior C3-C5 ACDF, as well as cement from L5 vertebroplasty and sacroplasty. IMPRESSION No evidence of active local or metastatic prostate malignancy. Thank you for referring this patient to [facility]. I have personally reviewed the image(s) and the resident's interpretationand agree with the findings, Sarah Echeverria MD at 04/09/2023 3:44 PM Thank you for letting us participate in the care of this patient. If youare a health care provider and have any questions regarding this report,please contact the number below. For patients who have questions please contactthe health care information associate that requested your imaging first. Mike Louise MD IMG PET ORDERABLES documented in this encounter Visit Diagnoses Not on filedocumented in this encounter Care Teams Associate Consulting Engineer Relationship Specialty Start Date End Date Reji Adams MD [facility] [place] [address] PCP - General General Internal Medicine 07/13/15 documented as of this encounter
--- OUTSIDE RECORDS SUMMARY | 2024-07-09 11:05 | XMS_ITS | Encounter Summary ---
Author Organization [facility] [place] [address] Care Team Providers Care Tourist Home Keeper Name Role Phone Reji Adams MD Primary Care Provider [phone] Encounter Details Date Type Department Care Team (Latest Contact Info) Description 05/06/2023 Travel Social History Tobacco Use Types Packs/Day [...] 11:30 AM EDT Office [place] [address] Charline Ziegler MD [facility] [place] [address] documented as of this encounter Visit Diagnoses Not on filedocumented in this encounter Care Teams Tourist Home Keeper Relationship Specialty Start Date End Date Reji Adams MD [facility] [place] [address] PCP - General General Internal Medicine 07/13/15 documented as of this encounter
--- OUTSIDE RECORDS SUMMARY | 2024-07-09 11:05 | XMS_ITS | Encounter Summary ---
Author Organization [facility] Address [facility] [place] [address] Care Team Providers Care Diesel Plant Operator Name Role Phone Reji Adams MD Primary Care Provider [phone] Reason for Referral * Consultation (Routine) - Closed Specialty Diagnoses / Procedures Referred By Duglas t Referred To Contact Hematology and Oncology Diagnoses Prostate cancer metastatic to intrapelvic lymph node Mike Louise MD [facility] [address] [place] [address] [facility] Hem Onc [address] [place] [address] Referral ID Status Reason Start Date Expiration Date V isits Requested Visits Authorized [id number] Closed Consult, Test & Treat 03/06/2023 03/05/2024 1 1 Scheduling Instructions Prefers to be seen sooner rather than later and doesn't need to be linked w/ other appts, aside from 03/17 is wide open Reason for Visit * Reason Onset Date Comments Other 03/06/2023 Encounter Details Date Type Department Care Team (Late st Contact Info) Description 03/06/2023 Telephone [place]ematology [place] [address] Renetta Campos RN INFUSION ROOM Other Social History Tobacco Use Types Packs/Day [...] [place] [facility] (including now)? Patient refused 07/20/2021 Sex and Gender Information Value Date Recorded Sex Assigned at Choose not to disclose 02/2023 8:26 AM EDT Gender Identity Not on file Sexual Orientation Choose not to disclose 2022 8:26 AM EDT documented as of this encounter Miscellaneous Notes * Telephone Encounter - Renetta Campos RN - 03/06/2023 4:29 PM EDT TRIAGE CALL Message received from personal secretary: Gregg called in, was very vague. He wanted to move his appt up, I offered an appt at the end of February. He declined because he didn't want to have labs drawn. Said he wasn't feeling good. Tried to get more details and all I got was he's not sleeping good and having night sweats. I tried my hardest to get more detail but he wouldn't tell me anything else except I'm grasping at straws and doubt anyone can help me. [phone] Diagnosis/current treatment: Metastatic prostate cancer-followed at [facility]/, treatment currently onhold Caller: pt Symptom Review per conversation with caller: I am feeling lousy. States he thought he would feel better when he stopped his treatment I was expecting sunshine and lollipops however has been feeling worse. States he has compression fractures for which she has a call out to his primary care but has not heard back, states there is not anything anyone can do about that. He is not sleeping well- he is tired all the time but then his mind races when he tries to go to sleep. Acknowledges he is depressed for various reasons, not just his diagnosis. Confirms he does not want to restart his Zytiga/pred at this time. Hot flashes are problematic for him however he does not believe that acupuncture would be beneficial as he has tried it in the past without luck. States he prefer not to be on any medications since he does not like taking pills. Plan of Care and actions for worsening condition per Telephone Triage for Oncology Nurses, 3rd Edition, ONCAugusto and Noam, 2019/Telephone Triage Protocols for Nurses 6th Edition, Alfreda Gu/ [facility] Standard Practice: Discussed management of hot flashes including acupuncture as well as medicatio ns; offered referral to psych for either medication or psychotherapy; offered to move up appointment Pt/responsible caregiver able to read back and verbalize understanding of plan and intention to comply with plan/disposition: Yes, after discussion requested to see psychology for help in working through his depression; declined moving up his appointment at this time and declined medication for hishot flashes Pt/responsible caregiver able to verbalize understanding of and intention to call clinic with any new or worsening signs or symptoms: yes; reviewed signs and symptoms of cord compression with patientand stressed need for him to call should his overall symptoms worsen Follow up needed? no This note was written or modified using [employer] voice recognition software. The final note was screened for mistakes. Please excuse any remaining errors. documented in this encounter Plan of Treatment Upcoming Encounters Date Type Department Care Team (Late st Contact Info) Description 12/15/2024 11:30 AM EDT Office [place] [address] Charline Ziegler MD [facility] [place] [address] Scheduled Referrals Name Type Priority Associated Diagnoses Orde r Schedule Referral to [facility] Psychiatry (Cancer Center Patients Only) Outpatient Referral Routine Prostate cancer metastatic to intrapelvic lymph node Ordered: 03/06/2023 documented as of this encounter Visit Diagnoses Diagnosis Prostate cancer metastatic to intrapelvic lymph node documented in this encounter Care Teams Diesel Plant Operator Relationship Specialty Start Date End Date Reji Adams MD [facility] [place] [address] PCP - General General Internal Medicine 07/13/15 documented as of this encounter
--- OUTSIDE RECORDS SUMMARY | 2024-07-09 11:05 | XMS_ITS | Encounter Summary ---
Author Organization [facility] [place] [address] Care Team Providers Care Rolls Baker Name Role Phone Reji Adams MD Primary Care Provider [phone] Reason for Visit * Reason Onset Date Comments Fatigue 03/27/2023 Encounter Details Date Type Department Care Team (Late st Contact Info) Description 03/27/2023 Telephone Hematology [place] [address] Renetta Campos, GR[address] TUTOR ROOM Fatigue Social History Tobacco Use Types Packs/Day [...] Telephone Encounter - Renetta Campos RN - 03/27/2023 7:56 AM EDT TRIAGE CALL Message received from secretary of police: [phone] - patient called - states that he is feeling very low energy, no appetite, not feelinglike doing anything - wondering what he can do to help?? Diagnosis/current treatment: Metastatic prostate cancer-[place], next appointment 04/16 Caller: pt, transferred call from secretary of police Symptom Review per conversation with caller: He doesn't feel that great. He states it has a been gradual private branch exchange repairer the past week after felt fairly normal last week. He feels that he's 'running out of gas'. His appetite fluctuates but he is eating and is doing fairly well w/ hydrating. No resp or GI s/s. Plan of Care and actions for worsening condition perTelephone Triage for Oncology Nurses, 3rd Edition, Augusto RAI and Noam, 2019/Telephone Triage Protocols for Nurses 6th Edition, Alfreda Gu/ [facility] Standard Practice: Discussed that decline over week was more order entry representative of likely viral infect ion than change in his cancer given his previous stability; recommend ruling out COVID monitoring for other infectious symptoms and following up with PCP as needed; notify clinic should any of his symptoms worsen or he develop new symptoms; encouraged good hydration and diet as well as regular exercise Pt/responsible caregiver able to read back and verbalize understanding of plan and intention to comply with plan/disposition: Yes Pt/responsible caregiver able to verbalize understanding of and intention to call clinic with any new or worsening signs or symptoms: yes Follow up needed? no MD aware. ~8min call This note was written or modified using Attero voice recognition software. The final note was screened for mistakes. Please excuse any remaining errors. documented in this encounter Plan of Treatment Upcoming Encounters Date Type Department Care Team (Late st Contact Info) Description 12/15/2024 11:30 AM EDT Office [place] [address] Charline Ziegler MD [facility] [place] [address] documented as of this encounter Visit Diagnoses Not on filedocumented in this encounter Care Teams Rolls Baker Relationship Specialty Start Date End Date Reji dAams MD [facility] [place] [address] PCP - General General Internal Medicine 07/13/15 documented as of this encounter
--- OUTSIDE RECORDS SUMMARY | 2024-07-09 11:05 | XMS_ITS | Encounter Summary ---
Author Organization [facility] [address] Care Team Providers Care Straight Truck Driver Name Role Phone Reji Adams MD Primary Care Provider [phone] Encounter Details Date Type Department Care Team (Latest Contact Info) Description 03/02/2023 Travel Social History Tobacco Use Types Packs/Day [...] slept in a retirement (including now)? Patient refused 07/20/2021 Sex and [...] 11:30 AM EDT Office [place] [address] Charline Ziegler MD [facility] [place] [address] documented as of this encounter Visit Diagnoses Not on filedocumented in this encounter Care Teams Straight Truck Driver Relationship Specialty Start Date End Date Reji Adams MD [facility] [place] [address] PCP - General General Internal Medicine 07/13/15 documented as of this encounter
--- OUTSIDE RECORDS SUMMARY | 2024-07-09 11:05 | XMS_ITS | Encounter Summary ---
Author Organization [facility] Address [facility] [place] [address] Care Team Providers Care Cloth Trimmer Hand Name Role Phone Reji Adams MD Primary Care Provider [phone] Encounter Details Date Type Department Care Team (Late st Contact Info) Description 02/27/2023 Ancillary Procedure Radiology Library at [facility] [place] [address] Reji Adams MD [facility] [place] [address] Social History Tobacco Use Types Packs/Day Years [...] place to sleep or slept in a prison (including now)? Patient refused 07/20/2021 Sex and [...] 11:30 AM EDT Office [place] [address] Charline Ziegler MD [facility] [place] [address] documented as of this encounter Procedures Procedure Name Priority Date/Time Associated Diagnosis Comments FILM LIBRARY STORAGE ONLY DX SPINE Routine 02/27/2023 12:00 AM EDT documented in this encounter Results * Film Library- Storage Only DX Spine (02/27/2023 12:00 AM EDT) Narrative [facility] - 03/14/2023 3:38 PM EDT This exam is auto-finalizing. It's purpose is for storage only. Reji Adams MD IMG FILM LIBRARY ORD ERABLES [place], [place] documented in this encounter Visit Diagnoses Not on filedocumented in this encounter Care Teams Cloth Trimmer Hand Relationship Specialty Start Date End Date Reji Adams MD [facility] [place] [address] PCP - General General Internal Medicine 07/13/15 documented as of this encounter
--- OUTSIDE RECORDS SUMMARY | 2024-07-09 11:05 | XMS_ITS | Encounter Summary ---
Author Organization [facility] [place] [address] Care Team Providers Care Release And Technical Records Clerk Name Role Phone Reji Adams MD Primary Care Provider Encounter Details Date Type Department Care Team (Late st Contact Info) Description 03/17/2023 Telephone [place] [address] Mary العلي Social History Tobacco Use Types Packs/Day Years [...] 11:30 AM EDT Office [place] [address] Charline Ziegler MD [facility] [place] [address] documented as of this encounter Visit Diagnoses Not on filedocumented in this encounter Care Teams Release And Technical Records Clerk Relationship Specialty Start Date End Date Reji Adams MD [facility] [place] [address] PCP - General General Internal Medicine 07/13/15 documented as of this encounter
--- OUTSIDE RECORDS SUMMARY | 2024-07-09 11:05 | XMS_ITS | Encounter Summary ---
Author Organization [facility] Address [facility] [place] [address] Care Team Providers Care Data Officer Name Role Phone Reji Adams MD Primary Care Provider [phone] Reason for Referral * Diagnostic Test (Routine) - Closed Specialty Diagnoses / Procedures Referred By Contac t Referred To Contact Radiology Diagnoses Prostate cancer metastatic to intrapelvic lymph node Procedures NM PET CT PSMA Prostate (Illuccix) Mike Louise MD [facility] [address] [place] [address] [place] [address] Referral ID Status Reason Start Date Expiration Date V isits Requested Visits Authorized [id number] Closed Specialty Service Requested 11/20/2022 05/22/2024 1 2 Reason for Visit * Diagnostic Test (Routine) - Closed Specialty Diagnoses / Procedures Referred By Contac t Referred To Contact Radiology Diagnoses Prostate cancer metastatic to intrapelvic lymph node Procedures NM PET CT PSMA Prostate (Illuccix) Mike Louise MD [facility] [place] [address] [place] [address] Referral ID Status Reason Start Date Expiration Date V isits Requested Visits Authorized [id number] Closed Specialty Service Requested 11/20/2022 05/22/2024 1 2 Encounter Details Date Type Department Care Team (Latest Contact Info) Description 04/09/2023 9:41 AM EDT Hospital Encounter [place] [address] Mike Louise MD [facility] [address] [place] [address] Prostate cancer metastatic to intrapelvic lymph node [...] 11:30 AM EDT Office [place] [address] Charline Ziegler MD [facility] [place] [address] documented as of this encounter Procedures Procedure [...] Thank you for referring this patient to [facility]. I have personally reviewed the [...] have questions please contact the health animal care supervisor that requested your imaging first. ? Electronically signed by: Sarah Echeverria MD, [facility] ??([phone]), at 04/09/2023 3:44 PM Narrative 04/09/2023 3:44 PM EDT EXAMINATION: NM [...] Thank you for referring this patient to [facility]. I have personally reviewed the image(s) and the resident's interpretationand agree with the findings, Sarah Echeverria MD at 04/09/2023 3:44 PM Thank you for letting us participate in the care of this patient. If youare a health care provider and have any questions regarding this report,please contact the number below. For patients who have questions please contactthe health animal care supervisor that requested your imaging first. Electronically signed by: Sarah Echeverria MD, [facility]([phone]), at 04/09/2023 3:44 PM Mike Louise MD IMG PET ORDERABLES documented in this encounter Visit Diagnoses Diagnosis Prostate cancer metastatic to intrapelvic lymph node documented in this encounter Administered Medications Inactive Administered Medications - up to 3 most recent administrations Medication Order MAR Action Action Date Dose Rate Site Ga 68 psma-11 (Illuccix) injection 4-10 mCi 4-10 mCi, Intravenous, ONCE, 1 dose, On Fri04/09/23 at 1030, Radiology Contrast, Routine Given 04/09/2023 10:05 AM EDT 6.2 mCi Danicah t Arm documented in this encounter Care Teams Data Officer Relationship Specialty Start Date End Date Reji Adams MD [facility] [place] [address] PCP - General General Internal Medicine 07/13/15 documented as of this encounter
--- OUTSIDE RECORDS SUMMARY | 2024-07-09 11:05 | XMS_ITS | Encounter Summary ---
Author Organization [facility] [place] [address] Care Team Providers Care Bobbin Cleaning Machine Operator Name Role Phone Reji Adams MD Primary Care Provider [phone] Encounter Details Date Type Department Care Team (Latest Contact Info) Description 05/13/2023 Travel Social History Tobacco Use Types Packs/Day [...] 11:30 AM EDT Office Visit [place] [address] Charline Ziegler MD [facility] [place] [address] documented as of this encounter Visit Diagnoses Not on filedocumented in this encounter Care Teams Bobbin Cleaning Machine Operator Relationship Specialty Start Date End Date Reji Adams MD [facility] [place] [address] PCP - General General Internal Medicine 07/13/15 documented as of this encounter
--- OUTSIDE RECORDS SUMMARY | 2024-07-09 11:05 | XMS_ITS | Encounter Summary ---
Author Organization [facility] [place] [address] Care Team Providers Care Transport Conductor Name Role Phone Reji Adams MD Primary Care Provider [phone] Encounter Details Date Type Department Care Team (Latest Contact Info) Description 04/02/2023 Travel Social History Tobacco Use Types Packs/Day [...] slept in a detention (including now)? Patient refused 07/20/2021 Sex and [...] 11:30 AM EDT Office [place] [address] Charline Ziegler MD [facility] [place] [address] documented as of this encounter Visit Diagnoses Not on filedocumented in this encounter Care Teams Transport Conductor Relationship Specialty Start Date End Date Reji Adams MD [facility] GENERAL [place] [address] PCP - General General Internal Medicine 07/13/15 documented as of this encounter
--- OUTSIDE RECORDS SUMMARY | 2024-07-09 11:05 | XMS_ITS | Encounter Summary ---
Author Organization [facility] [place] [address] Care Team Providers Care Glass Presser Name Role Phone Reji Adams MD Primary Care Provider [phone] Encounter Details Date Type Department Care Team (Latest Contact Info) Description 03/14/2023 Travel Social History Tobacco Use Types Packs/Day [...] 11:30 AM EDT Office [place] [address] Charline Ziegler MD [facility] [place] [address] documented as of this encounter Visit Diagnoses Not on filedocumented in this encounter Care Teams Glass Presser Relationship Specialty Start Date End Date Reji Adams MD [facility] [place] [address] PCP - General General Internal Medicine 07/13/15 documented as of this encounter
--- OUTSIDE RECORDS SUMMARY | 2024-07-09 11:05 | XMS_ITS | Encounter Summary ---
Author Organization [facility] [place] [address] Care Team Providers Care Tour Bus Driver/Guide Name Role Phone Reji Adams MD Primary Care Provider [phone] Encounter Details Date Type Department Care Team (Latest Contact Info) Description 06/09/2023 Travel Social History Tobacco Use Types Packs/Day [...] slept in a residential (including now)? Patient refused 07/20/2021 Sex and [...] 11:30 AM EDT Office [place] [address] Charline Ziegler MD [facility] [place] [address] documented as of this encounter Visit Diagnoses Not on filedocumented in this encounter Care Teams Tour Bus Driver/Guide Relationship Specialty Start Date End Date Reji Adams MD [facility] GENERAL [place] [address] PCP - General General Internal Medicine 07/13/15 documented as of this encounter
--- OUTSIDE RECORDS SUMMARY | 2024-07-09 11:05 | XMS_ITS | Encounter Summary ---
Author Organization [facility] [place] [address] Care Team Providers Care Room Cooler Installer Name Role Phone Reji Adams MD Primary Care Provider [phone] Encounter Details Date Type Department Care Team (Late st Contact Info) Description 03/06/2023 Orders Only [place]ology [place] [address] Kathy Lopez, GENERAL FARMER Social History Tobacco Use Types Packs/Day Years [...] 11:30 AM EDT Office [place] [address] Charline Ziegler MD [facility] [place] [address] documented as of this encounter Visit Diagnoses Not on filedocumented in this encounter Care Teams Room Cooler Installer Relationship Specialty Start Date End Date Reji Adams MD [facility] [place] [address] PCP - General General Internal Medicine 07/13/15 documented as of this encounter
--- OUTSIDE RECORDS SUMMARY | 2024-07-09 11:05 | XMS_ITS | Encounter Summary ---
Author Organization [facility] [place] [address] Care Team Providers Care Room Service Associate Name Role Phone Reji Adams MD Primary Care Provider [phone] Encounter Details Date Type Department Care Team (Latest Contact Info) Description 03/13/2023 Travel Social History Tobacco Use Types Packs/Day [...] 11:30 AM EDT Office [place] [address] Charline Ziegler MD [facility] [place] [address] documented as of this encounter Visit Diagnoses Not on filedocumented in this encounter Care Teams Room Service Associate Relationship Specialty Start Date End Date Reji Adams MD [facility] [place] [address] PCP - General General Internal Medicine 07/13/15 documented as of this encounter
--- OUTSIDE RECORDS SUMMARY | 2024-07-09 11:05 | XMS_ITS | Encounter Summary ---
Author Organization [facility] Address [facility] [place] [address] Care Team Providers Care Acidizer Name Role Phone Reji Adams MD Primary Care Provider [phone] Reason for Visit * Reason Onset Date Comments Medication Refill 05/02/2023 Encounter Details Date Type Department Care Team (Late st Contact Info) Description 05/02/2023 Refill Internal Medicine at [address] [address] Reji Adams MD [facility] [place] [address] Anxiety Social History Tobacco Use Types Packs/Day [...] Telephone Encounter - Lola Blevins CCMA - 05/02/2023 11:04 AM EDT Prescription Renewal Request Name: Ken [...] Date of Last Refill (for each medication): 04/07/23 #70, PDMP reviewed and appropriate, last picked up 04/07/23 #70/24 day supply Medication category requirements (labs etc): n/a Status of request: Pended Allergies Allergen Reactions Penicillins Anaphylaxis Tongue swelling Betamethasone hiccups after injection Dexamethasone Hiccups after injection Triamcinolone Acetonide Hiccups CANDI Lowery 05/02/23 11:05 AM documented in this encounter Plan of Treatment Upcoming Encounters Date Type Department Care Team (Late st Contact Info) Description 12/15/2024 11:30 AM EDT Office Visit [place] [address] Charline Ziegler MD [facility] [place] [address] documented as of this encounter Visit Diagnoses Diagnosis Anxiety Anxiety state, unspecified documented in this encounter Care Teams Acidizer Relationship Specialty Start Date End Date Reji Adams MD [facility] [place] [address] PCP - General General Internal Medicine 07/13/15 documented as of this encounter
--- OUTSIDE RECORDS SUMMARY | 2024-07-09 11:05 | XMS_ITS | Encounter Summary ---
Author Organization [facility] [place] [address] Care Team Providers Care Boat Assembler Name Role Phone Reji Adams MD Primary Care Provider [phone] Encounter Details Date Type Department Care Team (Latest Contact Info) Description 05/28/2023 Travel Social History Tobacco Use Types Packs/Day [...] AM EDT Office Visit [place] [address] Charline Ziegler MD [facility] [address] documented as of this encounter Visit Diagnoses Not on filedocumented in this encounter Care Teams Boat Assembler Relationship Specialty Start Date End Date Reji Adams MD [facility] [place] [address] PCP - General General Internal Medicine 07/13/15 documented as of this encounter
--- OUTSIDE RECORDS SUMMARY | 2024-07-09 11:05 | XMS_ITS | Encounter Summary ---
Author Organization [facility] [place] [address] Care Team Providers Care Plant Maintenance Technician Name Role Phone Reji Newberry MD Primary Care Provider [phone] Encounter Details Date Type Department Care Team (Late st Contact Info) Description 06/09/2023 Telephone Internal Medicine at [address] [address] Igor Hickey, RN Social History Tobacco Use Types Packs/Day [...] as of this encounter Miscellaneous Notes * Addendum Note - Reji Newberry MD - 06/09/2023 4:29 PM ESTAddended by: REJI NEWBERRY on: 06/09/2023 04:29 PM Modules accepted: Orders * Addendum Note - Igor Hickey RN - 06/09/2023 4:22 PM ESTAddended by: IGOR HICKEY on: 06/09/2023 04:22 PM Modules accepted: Orders * Telephone Encounter - Igor Hickey RN - 06/09/2023 4:07 PM EST Td order prepped for signature, also received second CRM for same patient with below message: The patient is calling to request a lab test for gout on the advice of his Orthopedist. The patientstates that he has pain and swelling in his right wrist, left hand, and left knee. The patient saidhe has received cortisone injections, and fluid was removed from his knee to be analyzed. The patient is not requesting an appointment, but only the blood work at this time. The patient is scheduled for a Nurse Visit on 06/11/23, and would like to get the labs done on the same day at the [facility]. Please call to advise. * Telephone Encounter - Igor Hickey RN - 06/09/2023 4:05 PM EST tetanusCopied from [facility] #[id number]. Topic: Department Notification - Appointment Scheduled >> Jun 09, 2023 2:37 PM Dana Weiner wrote: FYI Appointment Scheduled PCP: REJI NEWBERRY This is an FYI message that this patient was scheduled today for an appointment on 06/11/23 at 12:00pm. Symptom(s)/Reason: Tetanus Vaccine Provider scheduled with: [facility] Please contact if further triage or action is needed before appointment. Ok to leave a message: Yes Ok to send [facility] message: Unknown documented in this encounter Plan of Treatment Upcoming Encounters Date Type Department Care Team (Late st Contact Info) Description 12/15/2024 11:30 AM EDT Office [place] [address] Charline Ziegler MD [facility] [address] [place] [address] documented as of this encounter Results * Uric acid (06/11/2023 12:07 PM EST) Uric Acid 4.6 3.5 - 8.5 mg/dL [facility] Blood 06/11/2023 12:0 7 PM EST 06/11/2023 9:06 PM EST Narrative Resulting Agency Comment Spec In Lab Reji Newberry MD CHEMISTRY ORDERABLES [facility] [place] [address] * Basic Metabolic Panel (non-fasting) (06/11/2023 12:07 PM EST) Glucose 93 65 - 199 mg/dL [facility] Comment:Diabetes: >=200 mg/d L plus symptoms Blood Urea Nitrogen 19 10 - 20 mg/dL [facility] Creatinine 0.95 0.80 - 1.50 mg/dL [facility] Sodium 137 135 - 145 mmol/L [facility] Potassium 4.4 3.5 - 5.0 mmol/L [facility] Comment: Please note: ??Patients with WBC >100,000 may have falsely elevated Potassium levels. ??For accurate Potassium quantification in these patients send serum separator tube (gold top) for subsequent determinations. ??Contact the Clinical Chemistry Laboratory if there are any questions. Chloride 102 98 - 107 mmol/L [facility] Carbon Dioxide 27 22 - 31 mmol/L [facility] Anion Gap 8 5 - 15 mmol/L [facility] Calcium 9.4 8.5 - 10.5 mg/dL [facility] Est Glomerular Filtration Rate 83 >=60 mL/min/1. 73 m?? [facility] Comment: This patient's estimated GFR was [...] and symptoms in addition to eGFR. Blood 06/11/2023 12:0 7 PM EST 06/11/2023 9:06 PM EST Narrative Resulting Agency Comment Spec In Lab Reji Newberry MD CHEMISTRY ORDERABLES Performing Organization Address City/State/[facility] Co de Phone Number [facility] [place] [address] documented in this encounter Visit Diagnoses Diagnosis Immunization, tetanus toxoid Need for prophylactic vaccination with tetanus toxoid alone Gout, unspecified cause, unspecified chronicity, unspecified site documented in this encounter Care Teams Plant Maintenance Technician Relationship Specialty Start Date End Date Reji Newberry MD [facility] GENERAL INTERNAL [place] [address] PCP - General General Internal Medicine 07/13/15 documented as of this encounter
--- OUTSIDE RECORDS SUMMARY | 2024-07-09 11:05 | XMS_ITS | Encounter Summary ---
Author Organization [facility] [place] [address] Care Team Providers Care Continuous Improvement Facilitator Name Role Phone Reji Adams MD Primary Care Provider [phone] Encounter Details Date Type Department Care Team (Latest Contact Info) Description 04/16/2023 Travel Social History Tobacco Use Types Packs/Day [...] 11:30 AM EDT Office [place] [address] Charline Ziegler MD [facility] [place] [address] documented as of this encounter Visit Diagnoses Not on filedocumented in this encounter Care Teams Continuous Improvement Facilitator Relationship Specialty Start Date End Date Reji Adams MD [facility] [place] [address] PCP - General General Internal Medicine 07/13/15 documented as of this encounter
--- OUTSIDE RECORDS SUMMARY | 2024-07-09 11:05 | XMS_ITS | Encounter Summary ---
Author Organization [facility] Address [facility] [place] [address] Care Team Providers Care Biometric Technician Name Role Phone Reji Adams MD Primary Care Provider [phone] Reason for Visit * Reason Onset Date Comments Medication Refill 05/31/2023 Encounter Details Date Type Department Care Team (Late st Contact Info) Description 05/31/2023 Refill Internal Medicine at [address] [address] Reji Adams MD [facility] GENERAL [place] [address] Anxiety Social History Tobacco Use Types Packs/Day [...] Telephone Encounter - Lola Blevins CCMA - 06/03/2023 7:44 AM EST Prescription Renewal Request Name: Ken [...] Date of Last Refill (for each medication): 05/02/23 Medication category requirements (labs etc): 03/09/2023 05/02/2023 Opioid PDMP [place] PDMP Query Date 03/10/2023 05/02/2023 [place] PDMP Query Date 03/10/2023 05/02/2023 [place] PDMP Query Date 03/10/2023 05/02/2023 Status of request: Pended Allergies Allergen Reactions Penicillins Anaphylaxis Tongue swelling Betamethasone hiccups after injection Dexamethasone Hiccups after injection Triamcinolone Acetonide Hiccups CANDI Lowery 06/03/23 7:44 AM documented in this encounter Plan of Treatment Upcoming Encounters Date Type Department Care Team (Late st Contact Info) Description 12/15/2024 11:30 AM EDT Office [place] [address] Charline Ziegler MD [facility] [place] [address] documented as of this encounter Visit Diagnoses Diagnosis Anxiety Anxiety state, unspecified documented in this encounter Care Teams Biometric Technician Relationship Specialty Start Date End Date Reji Adams MD [facility] GENERAL [place] [address] PCP - General General Internal Medicine 07/13/15 documented as of this encounter
--- OUTSIDE RECORDS SUMMARY | 2024-07-09 11:05 | XMS_ITS | Encounter Summary ---
Author Organization [facility] [place] [address] Care Team Providers Care Cytopathology Technologist Name Role Phone Reji Newberry MD Primary Care Provider [phone] Encounter Details Date Type Department Care Team (Late st Contact Info) Description 03/06/2023 Telephone Internal Medicine at [address] [address] Dafne Hickey, RN Social History Tobacco Use Types [...] Telephone Encounter - Dafne Hickey RN - 03/06/2023 9:54 AM EDT Copied from [facility] #[id number]. Topic: Triage - Triage >> Mar 06, 2023 9:36 AM Jorden Bauer I wrote: Symptom: Sleeping Issues PCP: REJI NEWBERRY Additional Comments: Patient called wanting to book an appointment with for sleeping issues and not feeling well, patient did not wish to go into further details. 's next available was March 25, patient denied scheduling with an associate provider. Patient would like approval to schedule the next available with , even though it is outside of recommended timeframe.Please call patient to discuss further and advise. Phoned [place] back, advised this district court reporter needed a little more information prior to determining if waiting until 03/25 was appropriate, asked pt if he could describe what his concerns were Pt stated I feel like shit, having trouble sleeping, stopped his amioderone, prednisone, and eligard medications in November, I just want to see my PCP to talk with him about it, also stated he would reach out to heme/onc if more appropriate documented in this encounter Plan of Treatment Upcoming Encounters Date Type Department Care Team (Late st Contact Info) Description 12/15/2024 11:30 AM EDT Office Visit Gastroenterology at [facility] [place] [address] Charline Ziegler MD [facility] [place] [address] documented as of this encounter Visit Diagnoses Not on filedocumented in this encounter Care Teams Cytopathology Technologist Relationship Specialty Start Date End Date Reji Newberry MD [facility] [place] [address] PCP - General General Internal Medicine 07/13/15 documented as of this encounter
--- OUTSIDE RECORDS SUMMARY | 2024-07-09 11:05 | XMS_ITS | Encounter Summary ---
Author Organization [facility] [place] [address] Care Team Providers Care Antenna Rigger Name Role Phone Reji Adams MD Primary Care Provider [phone] Encounter Details Date Type Department Care Team (Latest Contact Info) Description 04/11/2023 Travel Social History Tobacco Use Types Packs/Day [...] 11:30 AM EDT Office [place] [address] [facility] [place] [address] documented as of this encounter Visit Diagnoses Not on filedocumented in this encounter Care Teams Antenna Rigger Relationship Specialty Start Date End Date Reji Adams MD [facility] GENERAL [place] [address] PCP - General General Internal Medicine 07/13/15 documented as of this encounter
--- OUTSIDE RECORDS SUMMARY | 2024-07-09 11:05 | XMS_ITS | Encounter Summary ---
Author Organization [facility] [place] [address] Care Team Providers Care Book Or Script Editor Name Role Phone Reji Adams MD Primary Care Provider [phone] Reason for Referral * Physical Therapy (Routine) - Closed Specialty Diagnoses / Procedures Referred By Contac t Referred To [facility] Diagnoses Chronic thoracic spine pain Cyndi Valencia ELECTRONIC IMAGER [facility] [place] [address] [facility] [place] [address] Referral ID Status Reason Start Date Expiration Date V isits Requested Visits Authorized [id number] Closed Evaluate and Treat 03/17/2023 03/16/2024 12 12 * Consultation (Routine) - Closed Specialty Diagnoses / Procedures Referred By Contac t Referred To [facility] Diagnoses Chronic thoracic spine pain [employer]-COMPARATIVE SOCIOLOGY PROFESSOR Cyndi Valencia ELECTRONIC IMAGER [facility] [place] [address] [facility] [place] [place] [address] Referral ID Status Reason Start Date Expiration Date V isits Requested Visits Authorized [id number] Closed Consult, Test & Treat 03/17/2023 03/16/2024 1 1 Reason for Visit * Consultation (Routine) - Closed Specialty Diagnoses / Procedures Referred By Duglas arizmendi Referred To Contact Orthopaedics Diagnoses Chronic back pain, unspecified back location, unspecified back pain laterality Thoracic back pain / MRI Mar 2022 / ? KANG. Alexa or Reji Park MD [facility] [place] [address] [facility] [place] [address] Referral ID Status Reason Start Date Expiration Date V isits Requested Visits Authorized [id number] Closed Specialty Service Requested 12/06/2022 12/06/2023 1 1 Encounter Details Date Type Department Care Team (Late st Contact Info) Description 03/17/2023 1:00 PM EDT Office Visit [place] [address] Cyndi Valencia APRN [facility] [place] [address] Chronic thoracic spine pain (Primary Dx) Social History Tobacco Use [...] slept in a usp (including now)? Patient refused 07/20/2021 Sex and Gender Information Value Date Recorded Sex Assigned at Choose not to disclose 02/2023 8:26 AM EDT Gender Identity Not on file Sexual Orientation Choose not to disclose 2022 8:26 AM EDT documented as of this encounter Last Filed Vital Signs Vital Sign Reading Time Taken Comments Blood Pressure 106/71 03/17/2023 12:53 PM EDT Pulse 71 03/17/2023 12:53 PM EDT Temperature - - Respiratory Rate - - Oxygen Saturation - - Inhaled Oxygen Concentration - - Weight - - Height - - Body Mass Index - - documented in this encounter Progress Notes * Cyndi Valencia, ELECTRONIC IMAGER - 03/17/2023 1:00 PM EDT [facility] [place] [address] Phone: [facility] HPI: Ken Mckeon is a 77 y.o. adult seen in referral today upon the request of Reji Adams for consultation and treatment of functional limitations associated with chronic back pain and is also associated with known compression fractures in the mid cervical spine, lumbar spine and sacrum. Patienthas prostate cancer and has had radiation and medication and discontinued his medication due to side effects several months ago. He reports that all through his treatment he has been walking regularly and has can still walk but has difficulty with more stamina over 30 minutes and feels wobbly. In addition however, he had a prior cervical spine injury and ACDF which affected his balance. He feels that he previously could walk over an hour and now he feels like he runs out of gas. Treatments for this have included recent physical therapy for balance. He has had physical therapy in [place] but did not really like the provider. He reports his pain is mostly an ache and it is 3-4 on a scale of 10 but can get up to 8 on a scale of 10 psychologically. He feels it is as if he is afraid his back will snap. He has more difficulty lying down at night and because of this. He does feel at times that he lies down for a bit pain goes away. He reports that he has difficulty lying on his stomach. He can lie on his side or his back. His symptoms did increase after he had to spend a great deal of time bending over a riding lawnmower to try to fix it. For 2 weeks after that he was incapacitated and using a walker. He reports that his motivation for the visit today was to increase hismobility and to get some relief from his pain. In addition to his back pain he has some numbness in the right arm related to his spinal cord injury and some numbness in the left great toe. Does not take any daily medication. He was on Celebrex but found it to be too constipating. He does take alprazolam daily. He was referred here for discussion of the functional roman catholic program but after our discussion about the intensity and the length of the program he does not feel that it something that he is interested in. Saddle Anesthesia: No Other associated symptoms: As above Alleviating factors: Sitting and during the day Aggravating factors: Lying down for bed at night Pain today: 10/04 Current Medications for pain Function: Walking half an hour daily Previous Treatment: Physical Therapy: Engaged in balance PT at the current time Home Exercise Program: Not currently Medications: Previously tried Celebrex which was too constipating Other: alprazolam: Injections None Social history Partner, uses tobacco but no alcohol ROS No bowel or bladder changes, weight loss, fever, chills, chest pain, SOB Sleep he reports some night sweats related to discontinuation of his hormone therapy reports that he has never smoked. His smokeless tobacco use includes chew. Physical Examination: Wt Readings from Last 1 Encounters: 01/22/23 86.5 kg (190 lb 11.2 oz) BMI Readings from Last 1 Encounters: 01/22/23 26.09 kg/m?? Appearance/ Behavior Well groomed, good eye contact, relaxed, cooperative, normal speech, no acute distress, no involuntary movements Lungs Respirations unlabored Cardiovascular Bilateral upper extremities warm and dry Skin No rash, asymmetric hair loss, bruises, scars, swelling Musculoskeletal Inspection/Palpation/ Range of Motion/Facet Loading maneuvers Gait: Normal. No assistive device Heel: intact Toe: intact Tandem: intact Inspection: good alignment, no excessive curvature, shoulder and hip levels equal bilaterally; no skin breakdown ROM: Reduced cervical range of motion Palpation: No tenderness of the thoracic spine Imaging and Test Review: On the day of this encounter, I independently reviewed EXAMINATION: CT ABD AND PELVIS WITH CONTRAS CLINICAL HISTORY: sudden onset of R upper quadrant pain now resolving but with R upper quadrant tenderness, and guarding TECHNIQUE: Helical CT of the abdomen and pelvis following the intravenous administration of 99 mL of Omnipaque 350.. COMPARISON: CT abdomen pelvis 07/09/2022 FINDINGS: Visualized lung bases are normal. The liver, spleen, adrenal glands, gallbladder, and pancreas are normal. Biliary system is nondilated. Unchanged small bilateral renal cysts. No evidence of hydronephrosis. Bowel is nondilated. No free air or free fluid. Portions of the pelvis and majority of the bladder are obscured by artifact. Abdominal aorta is normal in caliber. No lymphadenopathy. Bilateral sacroplasty's are noted and L5 vertebroplasty. Ankylosis of L4-S1. Disc and facet degeneration are most pronounced at L2-3. IMPRESSION No acute finding I also reviewed his thoracic and lumbar x-rays. There are no radiology reports associated with this. Apparently he has mild compression fractures at T5-6, T6- 7, T78. He also has compression fracture at L4-5 and in the sacrum which were treated with vertebroplasty and sacroplasty Medical Decision Making: Ken Mckeon is a 77 y.o. adult seen today for a chief complaint of thoracic spine pain with known compression fractures and functional limitation I spent a total of 45 minutes on the day of this encounter meeting with the patient and reviewing documentation/coordinating care as described in this note. No procedures were performed at today's visit. Diagnosis: Chronic thoracic spine pain with functional limitation and compression fractures Plan Imaging: Reviewed CT, x-rays Physical Medicine: Discussed a referral to the physical therapist and the spine center for recommendations of conditioning for his goals of being able to walk longer. In the present time he is going to continue his balance PT until he is able to get into the spine center PT Medications: Tylenol on occasion Interventions: Discussed the functional roman catholic program at length but he does not feel that he can participatein that because of the distance he needs to travel in the time that he would have to commit but he is interested in potentially doing the mindfulness and CBT associated with empowered relief once itsready to be offered and so I made a referral for physical therapy here as well as empowered relief Lifestyle Medicine: Consider tobacco cessation Follow up: As needed CC: Reji Adams MD Referring Provider: Reji Valencia, MS, STAFF AUDITOR-BC, ELECTRONIC IMAGER Nurse practitioner [facility] documented in this encounter Plan of Treatment Upcoming Encounters Date Type Department Care Team (Late st Contact Info) Description 12/15/2024 11:30 AM EDT Office [place] [address] Charline Ziegler MD [facility] [place] [address] Scheduled Referrals Name Type Priority Associated Diagnoses Orde r Schedule Amb Referral to Active Pain Care Services Outpatient Referral Routine Chronic thoracic spine pain Ordered: 03/17/2023 Referral to Physical Therapy Outpatient Referral Routine Chronic thoracic spine pain Ordered: 03/17/2023 documented as of this encounter Visit Diagnoses Diagnosis Chronic thoracic spine pain- Primary Pain in thoracic spine documented in this encounter Care Teams Book Or Script Editor Relationship Specialty Start Date End Date Reji Adams MD [facility] [place] [address] PCP - General General Internal Medicine 07/13/15 documented as of this encounter
--- OUTSIDE RECORDS SUMMARY | 2024-07-09 11:05 | XMS_ITS | Encounter Summary ---
Author Organization [facility] Address [facility] [place] [address] Care Team Providers Care Medical Education Manager Name Role Phone Reji Adams MD Primary Care Provider [phone] Reason for Visit * Reason Onset Date Comments Medication Refill 04/07/2023 Encounter Details Date Type Department Care Team (Late st Contact Info) Description 04/07/2023 Refill Internal Medicine at [address] [address] Reji Adams MD [facility] [place] [address] Anxiety Social History Tobacco Use Types Packs/Day [...] 11:30 AM EDT Office [place] [address] Charline Ziegler MD [facility] [place] [address] documented as of this encounter Visit Diagnoses Diagnosis Anxiety Anxiety state, unspecified documented in this encounter Care Teams Medical Education Manager Relationship Specialty Start Date End Date Reji Adams MD [facility] [place] [address] PCP - General General Internal Medicine 07/13/15 documented as of this encounter
--- OUTSIDE RECORDS SUMMARY | 2024-07-09 11:05 | XMS_ITS | Encounter Summary ---
Author Organization [facility] Address [facility] [place] [address] Care Team Providers Care Speech And Language Tutor Name Role Phone Reji Adams MD Primary Care Provider [phone] Reason for Visit * Reason Comments Back Pain Encounter Details Date Type Department Care Team (Late st Contact Info) Description 06/12/2023 1:20 PM EST Office Visit Functional [facility] at [facility] [address] [place] [address] Andrea Ortega, PT Chronic thoracic spine pain [...] as of this encounter Progress Notes * Andrea Ortega, PT - 06/12/2023 1:20 PM EST [facility] Physical Therapy Follow-up Visit 2 Subjective Exam: Exercises are going okay. The row exercise is irritating the elbow a little bit, so he has been doing it less. Dealing with some swollen joints, and unsure of the cause so far. Gout tests were negative, and he has received cortisone shots. 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 Objective Findings: Postural Findings: Head Position: Mild protraction Shoulder Position: Mild protraction Thoracic Kyphosis: Slightly increased Lumbar Lordosis: Normal - fused Using SPC on the R side for balance. Treatment: Extensive discussion and education about pain neuroscience. Discussed pain as an alarm system versus an indicator of tissue dysfunction/injury. He was educated on how the alarm system adjusts based on exposure to stimuli, with temperature provided as an example of adjustments the nervous system makes in response to environment. We covered how stress, mechanical load, inflammation, and blood flow can be significant contributors to symptoms that can lead to over excitement or upregulation of the nervous system. Briefly covered differences between nociceptive, peripheral neurogenic, and nociplastic symptoms and how to differentiate them. He declined taking a handout of the above. We discussed how persistent pain can lead to secondary dysfunction/limitation over time, where tightness and immobility from reduced activity tolerance/participation lead to irritation in other areasadjacent to the problematic region. We discussed movement, strengthening, and balance as a enrique to improving all of these areas. - Squatting Shoulder Row with Anchored Resistance - 1 x daily - 7 x weekly - 2 sets - 15 reps Time Spent with Patient: 40 Minutes Assessment: Gregg returns for follow-up with continued challenges. Currently, challenges may be stemming from factors outside of movement, as multiple areas of inflammation have simultaneously occurred. He was educated on factors outside of mechanical forces that influence the nervous system, and thus the production of a pain response. We highlighted how stress, and other factors that are personal to him, also influence function overall and lead to worsening strength, flexibility, and endurance due to lackof activity, and how we should focus on building these areas up to promote improvement in spite of symptoms. Plan: Recommend PT 1x/2 weeks for 8 weeks with focus on postural mobility and stability training, body awareness, and education focused on improving patient understanding in rationale behind interventions.Standing extensions at the wall, shoulder flexion from [...] 11:30 AM EDT Office [place] [address] Charline Ziegler MD [facility] [place] [address] documented as of this encounter Procedures Procedure Name Priority Date/Time Associated Diagnosis Comments PT PLAN OF CARE CERT/RE-CERT Routine 06/12/2023 2:11 PM EST Chronic thoracic spine pain documented in this encounter Visit Diagnoses Diagnosis Chronic thoracic spine pain Pain in thoracic spine documented in this encounter Care Teams Speech And Language Tutor Relationship Specialty Start Date End Date Reji Adams MD [facility] [place] [address] PCP - General General Internal Medicine 07/13/15 documented as of this encounter
--- OUTSIDE RECORDS SUMMARY | 2024-07-09 11:05 | XMS_ITS | Encounter Summary ---
Author Organization [facility] Address [facility] [place] [address] Care Team Providers Care Auto Dealership Porter Name Role Phone Reji Adams MD Primary Care Provider [phone] Reason for Visit * Reason Onset Date Comments Medication Refill 03/09/2023 Encounter Details Date Type Department Care Team (Late st Contact Info) Description 03/09/2023 Refill Internal Medicine at [address] [address] Reji Adams MD [facility] [place] [address] Anxiety Social History Tobacco Use Types Packs/Day [...] Telephone Encounter - Lola Blevins CCMA - 03/10/2023 12:02 PM EDT Prescription Renewal Request Name: Ken Mckeon : 1945 Prescription(s) Requested: Requested Prescriptions Pending Prescriptions Disp Refills ALPRAZolam (Xanax) 0.25 mg tablet 70 tablet 0 Sig: Take 1 tablet by mouth 3 times daily as needed for Anxiety. Date of Encounter last in This Dept (If need an appointment send to secretaries to schedule): 11/12/22 Next Encounter in This Dept: Visit date not found Date of Last Refill (for each medication): 02/09/23 #70, PDMP reviewed and appropriate, last picked up 02/10/23 Medication category requirements (labs etc): n/a Status of request: Pended Allergies Allergen Reactions Penicillins Anaphylaxis Tongue swelling Betamethasone hiccups after injection Dexamethasone Hiccups after injection Triamcinolone Acetonide Hiccups CANDI Lowery 03/10/23 12:03 PM documented in this encounter Plan of Treatment Upcoming Encounters Date Type Department Care Team (Late st Contact Info) Description 12/15/2024 11:30 AM EDT Office [place] [address] Charline Ziegler MD [facility] [place] [address] documented as of this encounter Visit Diagnoses Diagnosis Anxiety Anxiety state, unspecified documented in this encounter Care Teams Auto Dealership Porter Relationship Specialty Start Date End Date Reji Adams MD [facility] [place] [address] PCP - General General Internal Medicine 07/13/15 documented as of this encounter
--- OUTSIDE RECORDS SUMMARY | 2024-07-09 11:05 | XMS_ITS | Encounter Summary ---
Author Organization [facility] Address [facility] [place] [address] Care Team Providers Care Sign Writer Letterer Or Painter Name Role Phone Reji Adams MD Primary Care Provider [phone] Reason for Visit * Reason Comments Back Pain * Physical Therapy (Routine) - Closed Specialty Diagnoses / Procedures Referred By Duglas arizmendi Referred To Contact [facility] Diagnoses Chronic thoracic spine pain Cyndi Valencia, HOME THEATRE TECHNICIAN [facility] [place] [address] [facility] [place] [address] Referral ID Status Reason Start Date Expiration Date V isits Requested Visits Authorized [id number] Closed Evaluate and Treat 03/17/2023 03/16/2024 12 12 Encounter Details Date Type Department Care Team (Late st Contact Info) Description 05/05/2023 11:00 AM EDT Office Visit [place] [address] Andrea Ortega, PT Chronic thoracic spine pain [...] slept in a [facility] (including now)? Patient refused 07/20/2021 Sex and Gender Information Value Date Recorded Sex Assigned at Choose not to disclose 02/2023 8:26 AM EDT Gender Identity Not on file Sexual Orientation Choose not to disclose 2022 8:26 AM EDT documented as of this encounter Miscellaneous Notes * Initial Evaluation - Andrea Ortega, PT - 05/05/2023 11:00 AM EDT [place] [facility] Evaluation Note Subjective Exam: Ken Mckeon reports for PT evaluation due to thoracic spine pain. They were referred by Cyndi Valencia APRN. These symptoms began about 9 months ago without incident. Since that time, symptoms have progressively worsened, but go up and down. Trying to walk every day, but has had some foot pain. 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 He feels androgen deprivation made him lose significant muscle mass. Had a bursectomy on the R side with an ITB release on the same side. Had some cortisone injections in the L foot, and TPI's in the midback on the R side. Quality of Symptoms: Feels unstable in the midback - it feels like its going to break. Has RLS for many years. Legs can feel heavy with walking. 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 AM/PM Pattern:Worse as the day progressed Preference for Rest/Movement: Variable Positional Preference: Supine - needs to lie down slowly and feels some pain in the chest. Aggravating Factors: vacuuming, washing windows in his car, raising arms overhead, lifting, archery Alleviating Factors: Gentle motion, supine(eventually feels good) Sleep Duration: Usually in bed by 11pm-7am, Sometimes dreads going to bed due to night sweats that are ongoing. 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 Fluid Intake: 1 can of diet coke zero a day and water throughout the rest of the day. Medication: Xanax - stopped treatment for cancer and PSA has not elevated again. Prior Exercise: Swimming, kayaking, walking, hiking Prior Treatment: PT, TPI, vertebroplasty and sacroplasty Recreational/Leisure Activities: ArchLocally - not able to do this now. Support at home: Partner at home Flags: Bowel/bladder changes: Bowel constipation Saddle Parasthesias: Denies Unexpected weight loss: Denies History of cancer: Yes, prostate currently. Followed by urology and oncology, and having follow-up regularly. Also considering Reclast injection. 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 Objective Findings: ROM Eval Comments Forward Bend -20% Limited curve reversal in the lumbar spine, and tightness in the back of the thighs. Discomfort upon movement to standing. Extension -80% Some increase in symptoms in the thoracic upon return to standing Trunk Rotation R -50% More discomfort upon return Trunk Rotation L -40% Trunk Sidebending R -30% Trunk Sidebending L -20% Increases R sided discomfort in the back Myotomes Eval Comments Hip Flexion (L1-2) 5/5 Knee Extension (L3-4) 5/5 Dorsiflexion (L4-5) 5/5 Great Toe Ext (L5) 5/5 Plantarflexion (S1) 5/5 *Above findings are SANTI unless otherwise specified Neural Tension: Slump Test: Negative SANTI Postural Findings: Head Position: Mild protraction Shoulder Position: Mild protraction Thoracic Kyphosis: Slightly increased Lumbar Lordosis: Normal - fused LE Neuro symptoms: Reflexes: normal Sensation: intact and equal Using SPC on the R side for balance. Treatment: Education on exam findings and rationale for POC to include graded exposure to movement in all planes, education on the interventions being provided, and symptom management strategies. Access Code: [email or web address] URL: [email or web address] Date: 05/05/2023 Prepared by: Andrea Ortega Exercises - Supine Shoulder Flexion AAROM with Dowel - 1 x daily - 7 x weekly - 2 sets - 15 reps - Supine Chest Stretch with Elbows Bent - 1 x daily - 7 x weekly - 2 sets - 15 reps Time Spent with Patient: 60 Minutes Assessment: Ken Mckeon is a pleasant 77 y.o. adult who presents with complaints of back pain, gross and segmental mobility loss, limited activity and positional tolerance, and mild postural changes consistent with chronic thoracic spine pain and complicated by history of spinal surgeries and cancer. These impairments have limited their ability to perform necessary daily activity without symptoms, and have prevented him from performing archery which is causing significant psychosocial strain. He was provided some gentle stretching today without significant challenge. Fear will be a major barrier to rehab, but we will blend education about safety of motion, pain neuroscience, and graded exposure to mo vement into his program to limit the impact of fear on his overall physical capacity. Skilled PT indicated to address the above impairments, maximize function, and provide pertinent education, exercises, and symptom management tools. Plan: Recommend PT 1x/2 weeks for 8 weeks with focus on postural mobility and stability training, body awareness, and education focused on improving patient understanding in rationale behind interventions.Review past pt exercises, open book, PNE, standing extensions at the wall, shoulder [...] 11:30 AM EDT Office [place] [address] Charline Ziegler MD [facility] [place] [address] documented as of this encounter Procedures Procedure Name Priority Date/Time Associated Diagnosis Comments PT PLAN OF CARE CERT/RE-CERT Routine 05/05/2023 12:51 PM EDT Chronic thoracic spine pain documented in this encounter Visit Diagnoses Diagnosis Chronic thoracic spine pain Pain in thoracic spine documented in this encounter Care Teams Sign Writer Letterer Or Painter Relationship Specialty Start Date End Date Reji Adams MD [facility] [place] [address] PCP - General General Internal Medicine 07/13/15 documented as of this encounter
--- OUTSIDE RECORDS SUMMARY | 2024-07-09 11:05 | XMS_ITS | Encounter Summary ---
Author Organization [facility] [place] [address] Care Team Providers Care Primer Charging Tool Setter Name Role Phone Reji Adams MD Primary Care Provider [phone] Encounter Details Date Type Department Care Team (Latest Contact Info) Description 03/17/2023 Travel Social History Tobacco Use Types Packs/Day [...] 11:30 AM EDT Office [place] [address] Charline Ziegler MD [facility] [place] [address] documented as of this encounter Visit Diagnoses Not on filedocumented in this encounter Care Teams Primer Charging Tool Setter Relationship Specialty Start Date End Date Reji Adams MD [facility] [address] PCP - General General Internal Medicine 07/13/15 documented as of this encounter
--- OUTSIDE RECORDS SUMMARY | 2024-07-09 11:05 | XMS_ITS | Encounter Summary ---
Author Organization [facility] [address] Care Team Providers Care Immunologist Name Role Phone Reji Adams MD Primary Care Provider [phone] Encounter Details Date Type Department Care Team (Late st Contact Info) Description 06/09/2023 Telephone [place] [address] Aileen Salas Social History Tobacco Use Types Packs/Day Years [...] encounter Miscellaneous Notes * Telephone Encounter - Aileen Salas - 06/09/2023 10:29 AM EST LVM X1 FOR PATIENT TO CALL AND RESCHEDULE HIS APPOINTMENT WITH DR. MASTERS. follow up from 2021 to discuss surgery SUNSHINE LOVELACE 06/09/2023 documented in this encounter Plan of Treatment Upcoming Encounters Date Type Department Care Team (Late st Contact Info) Description 12/15/2024 11:30 AM EDT Office [place] [address] Charline Ziegler MD [facility] [place] [address] documented as of this encounter Visit Diagnoses Not on filedocumented in this encounter Care Teams Immunologist Relationship Specialty Start Date End Date Reji Adams MD [facility] [place] [address] PCP - General General Internal Medicine 07/13/15 documented as of this encounter
--- OUTSIDE RECORDS SUMMARY | 2024-07-09 11:05 | XMS_ITS | Encounter Summary ---
Author Organization [facility] [place] [address] Care Team Providers Care Fire Battalion Chief Name Role Phone Reji Adams MD Primary Care Provider [phone] Encounter Details Date Type Department Care Team (Latest Contact Info) Description 04/22/2023 Travel Social History Tobacco Use Types Packs/Day [...] 11:30 AM EDT Office Visit [place] [address] Charline Ziegler MD [facility] [place] [address] documented as of this encounter Visit Diagnoses Not on filedocumented in this encounter Care Teams Fire Battalion Chief Relationship Specialty Start Date End Date Reji Adams MD [facility] [place] [address] PCP - General General Internal Medicine 07/13/15 documented as of this encounter
--- OUTSIDE RECORDS SUMMARY | 2024-07-09 11:05 | XMS_ITS | Encounter Summary ---
Author Organization [facility] [place] [address] Care Team Providers Care Gold Burnisher Name Role Phone Reji Adams MD Primary Care Provider [phone] Encounter Details Date Type Department Care Team (Latest Contact Info) Description 06/11/2023 12:00 PM EST Clinical Support [place] [address] Immunization, tetanus toxoid; Gout, unspecified cause, unspecified chronicity, unspecified site Social History Tobacco Use Types Packs/Day Years [...] as of this encounter Progress Notes * Dafne Hickey RN - 06/11/2023 12:00 PM EST Td IM administered to L detoid, vis given, lab draw, one stick R AC, one tube drawn, pt tolerated well documented in this encounter Plan of Treatment Upcoming Encounters Date Type Department Care Team (Late st Contact Info) Description 12/15/2024 11:30 AM EDT Office Visit [place] [address] Charline Ziegler MD [facility] [place] [address] documented as of this encounter Procedures Procedure Name Priority Date/Time Associated Diagnosis Comments URIC ACID Routine 06/11/2023 12:07 PM EST Gout, unspecified cause, unspecified chronicity, unspecified site BASIC METABOLIC PANEL Routine 06/11/2023 12:07 PM EST Gout, unspecified cause, unspecified chronicity, unspecified site documented in this encounter Results * Basic Metabolic Panel (non-fasting) (06/11/2023 12:07 PM EST) Glucose 93 65 - 199 mg/dL [facility] Comment:Diabetes: >=200 mg/d L plus symptoms Blood Urea Nitrogen 19 10 - 20 mg/dL [facility] Creatinine 0.95 0.80 - 1.50 mg/dL [facility] Sodium 137 135 - 145 mmol/L [facility] Potassium 4.4 3.5 - 5.0 mmol/L [facility] Comment: Please note: ??Patients with WBC >100,000 may have falsely elevated Potassium levels. ??For accurate Potassium quantification in these patients send serum separator tube (gold top) for subsequent determinations. ??Contact the Clinical Chemistry Laboratory if there are any questions. Chloride 102 98 - 107 mmol/L [facility] Carbon Dioxide 27 22 - 31 mmol/L [facility] Anion Gap 8 5 - 15 mmol/L [facility] Calcium 9.4 8.5 - 10.5 mg/dL [facility] Est Glomerular Filtration Rate 83 >=60 mL/min/1. 73 m?? [facility] Comment: This patient's estimated GFR was [...] In Lab Reji Adams MD CHEMISTRY ORDERABLES [facility] [place] [address] * Uric acid (06/11/2023 12:07 PM EST) Uric Acid 4.6 3.5 - 8.5 mg/dL [facility] Blood 06/11/2023 12:0 7 PM EST 06/11/2023 9:06 PM EST Narrative Resulting Agency Comment Spec In Lab Reji Adams MD CHEMISTRY ORDERABLES [facility] [place] [address] documented in this encounter Visit Diagnoses Diagnosis Immunization, tetanus toxoid Need for prophylactic vaccination with tetanus toxoid alone Gout, unspecified cause, unspecified chronicity, unspecified site documented in this encounter Care Teams Gold Burnisher Relationship Specialty Start Date End Date Reji Adams MD [facility] [place] [address] PCP - General General Internal Medicine 07/13/15 documented as of this encounter
--- OUTSIDE RECORDS SUMMARY | 2024-07-09 11:06 | XMS_ITS | Encounter Summary ---
Author Organization [place] [address] Care Team Providers Care Cell Room Supervisor Name Role Phone Reji Adams MD Primary Care Provider [phone] Encounter Details Date Type Department Care Team (Latest Contact Info) Description 01/03/2023 Travel Social History Tobacco Use Types Packs/Day [...] 11:30 AM EDT Office [place] [address] Charline Ziegler MD [facility] [place] [address] documented as of this encounter Visit Diagnoses Not on filedocumented in this encounter Care Teams Cell Room Supervisor Relationship Specialty Start Date End Date Reji Adams MD [facility] [place] [address] PCP - General General Internal Medicine 07/13/15 documented as of this encounter
--- OUTSIDE RECORDS SUMMARY | 2024-07-09 11:06 | XMS_ITS | Encounter Summary ---
Author Organization [facility] [place] [address] Care Team Providers Care Chief Service Observer Name Role Phone Reji Newberry MD Primary Care Provider [phone] Encounter Details Date Type Department Care Team (Late st Contact Info) Description 02/14/2023 Telephone Internal Medicine at [address] [address] Dafne Hickey, RN Social History [...] Telephone Encounter - Dafne Hickey RN - 02/14/2023 2:54 PM EDT Copied from [facility] #[id number]. Topic: Triage - Triage >> Feb 14, 2023 2:21 PM Oniel Garrison wrote: Symptom: Montrell Sore PCP: REJI NEWBERRY Additional Comments: Patient is calling in requesting a prescription for a cold sore. Please Call to Advise. documented in this encounter Plan of Treatment Upcoming Encounters Date Type Department Care Team (Late st Contact Info) Description 12/15/2024 11:30 AM EDT Office [place] [address] Charline Ziegler MD [facility] [place] [address] documented as of this encounter Visit Diagnoses Not on filedocumented in this encounter Care Teams Chief Service Observer Relationship Specialty Start Date End Date Reji Newberry MD [facility] [place] [address] PCP - General General Internal Medicine 07/13/15 documented as of this encounter
--- OUTSIDE RECORDS SUMMARY | 2024-07-09 11:06 | XMS_ITS | Encounter Summary ---
Author Organization [facility] Address [facility] [place] [address] Care Team Providers Care Roping Machine Tender Name Role Phone Reji Adams MD Primary Care Provider Reason for Referral * Physical Therapy (Routine) - Closed Specialty Diagnoses / Procedures Referred By Duglas t Referred To Contact Physical Therapy Diagnoses SNHL (sensory-neural hearing loss), asymmetrical Dysequilibrium Left ear pain Zurdo Aguiar PA [facility] [place] [address] [facility] [place] [address] Referral ID Status Reason Start Date Expiration Date V isits Requested Visits Authorized [id number] Closed Evaluate and Treat 12/09/2022 12/09/2023 100 100 Reason for Visit * Reason Comments Follow-up Things are not great . He has a lot of left ear pain and it is going down his neck. He is also losing his balance. Encounter Details Date Type Department Care Team (Late Contact Info) Description 12/09/2022 2:00 PM EDT Office [place] [address] Zurdo Aguiar PA [facility] [place] [address] SNHL (sensory-neural hearing loss), asymmetrical; Dysequilibrium; Left ear pain Social History Tobacco Use Types Packs/Day [...] - Inhaled Oxygen Concentration - - Weight 83.9 kg (185 lb) 12/09/2022 1:49 PM EDT Height 179.1 cm (5' 10.5) 12/09/2022 1:49 PM ED T Body Mass Index 26.17 12/09/2022 1:49 PM EDT documented in this encounter Progress Notes * Zurdo Aguiar PA - 12/09/2022 2:00 PM EDT HPI: 77 y.o. adult followed for sudden hearing loss on the left Last appointment summary: Hearing continues to be asymmetrical but has returned to baseline. Monitor for any changes. Recheckaudio in a year. F/u in ENT with any new issues. Interval history: Patient reports symptoms continue to persist. He is most concerned with his left ear pain. This earpain is not constant and is intermittent. Happens more days than not. Will last for several hours when he does get. He cannot identify any specific trigger for the symptoms. No other changes in hearing. Denies drainage. He does report today he is concerned for possible throat cancer due to his past history of using chewing tobacco. He has an occasional productive cough. No specific throat pain, odynophagia, dysphagia, globus sensation, hemoptysis, significant unexplained weight loss, lymphadenopathy. Denies sensation of dizziness or vertigo but is concerned with loss of balance. This has been progressive decline over the last several years. He usually uses a cane for ambulation and sometimes willuse a walker. He has a significant history of back pain and several back surgeries. Paresthesias in his right armbut otherwise denies numbness, tingling. PMH: reviewed, no interval change System review: the Constitutional and ENT systems are thoroughly reviewed for any changes. Pertinent positives are listed in the HPI. Physical Exam The patient is well developed, well nourished. Responds to commands appropriately. Vocalizes in a strong clear voice. Alert and oriented x3. Ears: The pinnas are without erythema or mass. Facial motor function strong and symmetrical. Binocular otomicroscopy was performed: Left side: Ear canal clear Tympanic membrane intact and translucent with normal landmarks. Middle ear well aerated Right side: Ear canal clear Tympanic membrane intact and translucent with normal landmarks. Middle ear well aerated Face: No crepitus but moderate tenderness to palpation in the left TMJ mandible. Face and sinuses are non tender. Salivary glands are soft, non tender, without palpable masses. Nose: External nose is midline without deformity or lesion. Anterior rhinoscopy reveals a straight septum, healthy mucosa, turbinates normal in size. Neck: No obvious lymphadenopathy. Trachea midline. No obvious thyroid masses or lesions. Oral: Significant dental disease there are no visible or palpable buccal, gingival, lingual, or palatal lesions. The floor of mouth is soft and flat. Oropharynx: Symmetric without tonsillar pathology. No other concerning lesions or masses Larynx: No stridor, no hoarseness. External laryngeal structures normal to palpation. Audiological Exam None Labs and Imaging Significant lab values are as follows: None I reviewed the following imaging studies: None A/P: Discussed with patient that his physical exam is excellent today without significant findings on binocular microscopy. There is no evidence of middle ear effusion, infection or other middle ear disease. Is tympanic membrane is intact and there is no evidence of erythema or edema in his external earcanal. He was point tender over left TMJ and mandible but otherwise no significant findings that would explain ear pain. Discussed ear pain in the absence of obvious ear pathology is most often attributed to either TMJ dysfunction, cervical spine pain or migraines. Neoplastic process due to tobaccouse and ear pain is considered. Recommended proceeding with FNL during today's appointment but patie nt declined. He is not feeling great and just does not want to go through this procedure right now.I discussed without obvious red flag symptoms, I think this is reasonable but if pain persist wouldrecommend FNL to rule out referred pain due to neoplastic process. He was agreeable to this and allquestions answered. Discussed his decrease in balance is most likely multifactorial. No obvious peripheral vestibular pathology on today's exam. Most likely result of previous spine pathology and surgery. Recommended referral to vestibular PT. Recommended he return to clinic in 6 months for reevaluation or sooner if symptoms worsen or fail to improve. He was agreeable to this and all questions were answered. SURINDER Drake, MS, [place] [address] phone: [phone] documented in this encounter Plan of Treatment Upcoming Encounters Date Type Department Care Team (Late st Contact Info) Description 12/15/2024 11:30 AM EDT Office [place] [address] Charline Ziegler MD [facility] [place] [address] Scheduled Referrals Name Type Priority Associated Diagnoses Orde r Schedule Referral to Physical Therapy Outpatient Referral Routine SNHL (sensory-neural hearing loss), asymmetrical Dysequilibrium Left ear pain Ordered: 12/09/2022 documented as of this encounter Visit Diagnoses Diagnosis SNHL (sensory-neural hearing loss), asymmetrical Sensorineural hearing loss, asymmetrical Dysequilibrium Left ear pain Otalgia, unspecified documented in this encounter Care Teams Roping Machine Tender Relationship Specialty Start Date End Date Reji Adams MD [facility] [place] [address] PCP - General General Internal Medicine 07/13/15 documented as of this encounter
--- OUTSIDE RECORDS SUMMARY | 2024-07-09 11:06 | XMS_ITS | Encounter Summary ---
Author Organization [facility] [place] [address] Care Team Providers Care Card Lacer Name Role Phone Reji Adams MD Primary Care Provider [phone] Encounter Details Date Type Department Care Team (Latest Contact Info) Description 12/03/2022 Travel Social History Tobacco Use Types Packs/Day [...] 11:30 AM EDT Office [place] [address] Charline Ziegler MD [facility] [place] [address] documented as of this encounter Visit Diagnoses Not on filedocumented in this encounter Care Teams Card Lacer Relationship Specialty Start Date End Date Reji Adams MD [facility] [place] [address] PCP - General General Internal Medicine 07/13/15 documented as of this encounter
--- OUTSIDE RECORDS SUMMARY | 2024-07-09 11:06 | XMS_ITS | Encounter Summary ---
Author Organization [facility] [place] [address] Care Team Providers Care Sharepoint Application Architect Name Role Phone Reji Adams MD Primary Care Provider [phone] Encounter Details Date Type Department Care Team (Late st Contact Info) Description 01/30/2023 Telephone [facility] [place] [phone] Kailey Arango LNA Social History Tobacco Use Types Packs/Day Years [...] encounter Miscellaneous Notes * Telephone Encounter - Kailey Arango - 01/30/2023 8:54 AM EDT He will call us back to [facility] is appt as he did not have his callander with him at this time documented in this encounter Plan of Treatment Upcoming Encounters Date Type Department Care Team (Late st Contact Info) Description 12/15/2024 11:30 AM EDT Office Visit [place] [address] Charline Ziegler MD [facility] [place] [address] documented as of this encounter Visit Diagnoses Not on filedocumented in this encounter Care Teams Sharepoint Application Architect Relationship Specialty Start Date End Date Reji Adams MD [facility] GENER[place] [address] PCP - General General Internal Medicine 07/13/15 documented as of this encounter
--- OUTSIDE RECORDS SUMMARY | 2024-07-09 11:06 | XMS_ITS | Encounter Summary ---
Author Organization [facility] Address [facility] [place] [address] Care Team Providers Care Branch Credit Counselor Name Role Phone Reji Adams MD Primary Care Provider [phone] Reason for Referral * High Dollar Medication (Routine) - Closed Specialty Diagnoses / Procedures Referred By Contac t Referred To Contact Med Infusion Diagnoses Osteoporosis, unspecified osteoporosis type, unspecified pathological fracture presence Procedures Zolendronic Acid (Reclast) Authorization Request TC ZOLEDRONIC ACID, 1 MG, INJECTION Rafat Puckett MD [facility] [place] [address] [facility] Infusion [address] [place] [address] Referral ID Status Reason Start Date Expiration Date V isits Requested Visits Authorized [id number] Closed Consult, Test & Treat 01/10/2023 02/24/2023 1 99 Encounter Details Date Type Department Care Team (Late st Contact Info) Description 01/10/2023 Orders Only [place] [address] Rafat Puckett MD [facility] [place] [address] Osteoporosis, unspecified osteoporosis type, unspecified pathological fracture presence Social History Tobacco Use Types Packs/Day Years [...] 11:30 AM EDT Office Visit [place] [address] Charline Ziegler MD [facility] [place] [address] documented as of this encounter Visit Diagnoses Diagnosis Osteoporosis, unspecified osteoporosis type, unspecified pathological fracture presence documented in this encounter Care Teams Branch Credit Counselor Relationship Specialty Start Date End Date Reji Adams MD [facility] GENER[place] [address] PCP - General General Internal Medicine 07/13/15 documented as of this encounter
--- OUTSIDE RECORDS SUMMARY | 2024-07-09 11:06 | XMS_ITS | Encounter Summary ---
Author Organization [facility] [place] [address] Care Team Providers Care [employer] Advisor Name Role Phone Reji Adams MD Primary Care Provider [phone] Encounter Details Date Type Department Care Team (Latest Contact Info) Description 01/17/2023 Travel Social History Tobacco Use Types Packs/Day [...] 11:30 AM EDT Office [place] [address] Charline Ziegler MD [facility] [place] [address] documented as of this encounter Visit Diagnoses Not on filedocumented in this encounter Care Teams [employer] Advisor Relationship Specialty Start Date End Date Reji Adams MD [facility] [place] [address] PCP - General General Internal Medicine 07/13/15 documented as of this encounter
--- OUTSIDE RECORDS SUMMARY | 2024-07-09 11:06 | XMS_ITS | Encounter Summary ---
Author Organization [facility] Address [facility] [place] [address] Care Team Providers Care Neurology Manager Name Role Phone Reji Adams MD Primary Care Provider [phone] Encounter Details Date Type Department Care Team (Late st Contact Info) Description 01/10/2023 3:00 PM EDT Office Visit [place] [address] Rafat Puckett MD [facility] [place] [address] Osteoporosis, unspecified osteoporosis type, unspecified pathological fracture presence; Malignant neoplasm of prostate Social History Tobacco [...] Sign Reading Time Taken Comments Blood Pressure 112/71 01/10/2023 2:52 PM EDT Pulse 70 01/10/2023 2:52 PM EDT Temperature - - Respiratory Rate - - Oxygen Saturation 100% 01/10/2023 2:52 PM EDT Inhaled Oxygen Concentration - - Weight 85.3 kg (188 lb) 01/10/2023 2:52 PM EDT Height 177.8 cm (5' 10) 01/10/2023 2:52 PM EDT Body Mass Index 26.98 01/10/2023 2:52 PM EDT documented in this encounter Progress Notes * Rafat Puckett MD - 01/10/2023 3:00 PM EDT Images from the original note were not included. Division of Endocrinology Date of Visit: 01/10/2023 Patient Name: Ken Mckeon : 1945 PCP: Reji Adams MD Mr Ken Mckeon 77yo man with L5 and sacral fx here for follow-up. On MRI he also has fx T6,7,8,9. Pt does not know how fx happened, he was walking and pain kept getting worse, no falls. Is s/p vertebroplasty 04/2022 which helped pain some. He has prostate cancer on Lupron, abiraterone and prednisone 5mg daily for last 18 month and 11/25 decided to stop it all as it was decimating me. He has talked about that with hem/onc 05/2022 bone scan did not show metastatic process. BMD by DXA 12/2022 L1,L3,L4 -1.6SD Distal 1/3 -0.4SD on T score. Other risk factors for fracture/osteoporosis are: [] Yes [x] No Smoking, if yes, how long [] Yes [x] No Drinking alcohol. If yes, how much [x] Yes [] No Exercise If yes how long and what kind of exercise, before this walked for an hour daily. [] Yes [x] No Stomach or bowel surgery. If yes, When and what kind [] Yes [x] No Loose bowel movements. If yes, how frequently and how long [x] Yes [] No Loss of height 1.5 [] Yes [x] No History of kidney stones? If yes, when and how many episodes? [] Yes [x] No Kidney or liver problems? If yes, what kind and how long? Average time spent outside in direct sun a day [] 0-5 min [] 5-10 min [] 11-15 min [] 16-20 min [] 21-25 min [] 26-30 min [x] >30 min For men: Sexual dysfunction? [x] Yes [] No Daily calcium intake: [] 0-100 mg [] 101-200 mg [x] 201-300 mg from MVI [x] 301-400 mg one cup a day of almond milk [] 401-500 mg [] 501-600 mg [] 601-700 mg [] 701-900 mg [] 901-1100 mg [] 1153-2548 mg [] 8943-9079 mg [] Above 1500 mg Medications: Current Outpatient Medications on File Prior to Visit Medication Sig Dispense Refill ALPRAZolam (Xanax) 0.25 mg tablet Take 1 tablet by mouth 3 times daily as needed for Anxiety. 40 tablet 0 polyethylene glycoL (Miralax) 17 gram/dose Powder Take 17 g by mouth daily. pravastatin (Pravachol) 20 mg Tablet Take 1 tablet by mouth daily. 90 tablet 3 tadalafiL (CIALIS) 5 mg Tablet Take 5 mg by mouth as needed for Erectile Dysfunction. acetaminophen (TYLENOL) 650 mg Tablet Sustained Release Take 650 mg by mouth every 8 hours as needed for Pain. Do not exceed 6 tabs in 24 hours aspirin 81 mg Tablet, Delayed Release (E.C.) Take 81 mg by mouth daily. multivitamin (THERAGRAN) tablet Take 1 tablet by mouth daily. hydroCHLOROthiazide (Microzide) 12.5 mg capsule Take 1 capsule by mouth daily. (Patient not taking:Reported on 01/10/2023) 90 capsule 3 leuprolide, 3 month, (Eligard) Syringe Inject 22.5 mg subcutaneously once. No current facility-administered medications on file prior to visit. 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 Spine: without kyphosis, without pain on palpation. Patient able to stand up without assistance butslowly, walks with poon Skin: no dominique face, acne, supraclavicular fat pads, Appearance: well hydrated, well nourished, oriented x 3, in nad. Labs 10/2022 CBC and Chem 7 in good range, Ca 9.5, UPEP neg, TSH 1,14 08/2022 25-D 51, PTH 72 07/2022 HCT 39.6 06/2022 Chem 7 in good range 05/2021 TFTs in good range 12/2020 PSA 0.14 Assessment and Plan S/p many no trauma fractures/osteoporosis/prostate cancer on ADT/prednisone: His risk of future fractures are increased. ADT/aberatarone stopped. A. As patient's Ca intake is 400 mg from food and MVI, and pt isn't on PPI. As PTH is elevated asked to drink 2 full cups of almond milk daily. B. Patient also does have Vitamin D at goal, 30 ng/ml and above. MVI has 1600IUs. C. Will order BMD by DXA in 1-2 years D. As 25 Vit D at good level will start on zolendronic acid, all risks discussed. E. I will schedule patient for outpatient visit at 12 month. Thank you for allowing me to participate in the care of this very pleasant patient. I spend 40min in chart review, DXA, CT, labs, discussing his prostate cancer treatments to osteoporosis and writing my note. Sincerely, Rafat Puckett MD Professor of Endocrinology documented in this encounter Plan of Treatment Upcoming Encounters Date Type Department Care Team (Late st Contact Info) Description 12/15/2024 11:30 AM EDT Office Visit [place] [phone] Charline Ziegler MD [facility] [place] [address] documented as of this encounter Visit Diagnoses Diagnosis Osteoporosis, unspecified osteoporosis type, unspecified pathological fracture presence Malignant neoplasm of prostate documented in this encounter Care Teams Neurology Manager Relationship Specialty Start Date End Date Reji Adams MD [facility] [place] [address] PCP - General General Internal Medicine 07/13/15 documented as of this encounter
--- OUTSIDE RECORDS SUMMARY | 2024-07-09 11:06 | XMS_ITS | Encounter Summary ---
Author Organization [facility] [place] [address] Care Team Providers Care Program Assistant Name Role Phone Reji Adams MD Primary Care Provider [phone] Encounter Details Date Type Department Care Team (Latest Contact Info) Description 12/16/2022 Travel Social History Tobacco Use Types Packs/Day [...] 11:30 AM EDT Office [place] [address] Charline Ziegler MD [facility] [place] [address] documented as of this encounter Visit Diagnoses Not on filedocumented in this encounter Care Teams Program Assistant Relationship Specialty Start Date End Date Reji Adams MD [facility] [place] [address] PCP - General General Internal Medicine 07/13/15 documented as of this encounter
--- OUTSIDE RECORDS SUMMARY | 2024-07-09 11:06 | XMS_ITS | Encounter Summary ---
Author Organization [facility] Address [facility] [place] [address] Care Team Providers Care Document Advisor Name Role Phone Reji Adams MD Primary Care Provider [phone] Reason for Visit * Reason Comments Annual Wellness Visit Fatigue, no troubl e sleeping, intermittent phlegm (chest). Encounter Details Date Type Department Care Team (Latest Contact Info) Description 11/12/2022 11:20 AM EDT Office Visit Internal Medicine at [address] [address] Reji Adams MD [facility] [place] [address] Anxiety; Age-related osteoporosis with current pathological fracture, sequela; Hyperparathyroidism; Pure hypercholesterolemia; Malignant neoplasm of prostate; Wellness examination; Fatigue, unspecified type; PSVT (paroxysmal supraventricular tachycardia); Prostate cancer metastatic to intrapelvic lymph node [...] Sign Reading Time Taken Comments Blood Pressure 128/80 11/12/2022 11:30 AM EDT Pulse 67 11/12/2022 11:30 AM EDT Temperature 36.3 ??C (97.3 ??F) 11/12/2022 1 1:30 AM EDT Respiratory Rate 16 11/12/2022 11:3 0 AM EDT Oxygen Saturation 100% 11/12/2022 11: 30 AM EDT Inhaled Oxygen Concentration - - Weight 87.3 kg (192 lb 6.4 oz) 11/13/19 23 11:30 AM EDT with shoes Height 178 cm (5' 10.08) 11/12/2022 11 :30 AM EDT Body Mass Index 27.54 11/12/2022 11:30 AM EDT documented in this encounter Progress Notes * Reji Adams MD - 11/12/2022 11:20 AM EDT MEDICARE ANNUAL WELLNESS VISIT Mr. Ken Mckeon, a 77 y.o. male, presents today for a Medicare Annual Wellness [...] chart) Patient Active Problem List Diagnosis Code ??? 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 Cataract extraction status of left eye Z98.42 ??? OA (osteoarthritis) of knee M17.9 ??? Anxiety F41.9 ??? Neck pain M54.2 ??? Cervical radiculopathy M54.12 ??? Depression F32.A ??? Cervical stenosis of spinal canal M48.02 ??? Peripheral neuropathy G62.9 ??? Urinary urgency R39.15 ??? Right arm numbness R20.0 ??? Asymmetrical sensorineural hearing loss H90.3 ??? Chronic left shoulder pain M25.512, G89.29 ??? Trigger finger, left ring finger M65.342 ??? S/P rotator cuff repair Z98.890 ??? Malignant neoplasm of prostate C61 ??? 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 PSVT (paroxysmal supraventricular tachycardia) I47.1 ??? RBBB I45.10 ??? Varicose veins of both lower extremities with pain I83.813 ??? Sacral insufficiency fracture M84.48XA ??? Pure hypercholesterolemia E78.00 ??? 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 Age-related osteoporosis with current pathological fracture M80.00XA Past Medical History: Diagnosis Date ??? BPH (benign prostatic hyperplasia) ??? Neck pain 08/24/2012 ??? OA (osteoarthritis) of knee right ??? Spinal cord injury at 2016 Past Surgical History: Procedure Laterality Date ??? CREATED BY INTERFACE Past surg hx. Procedure Date: 09/19/2010 ??? CT GUIDED SACROPLASTY/VERTEBROPLASTY 05/22/2022 CT Guided Sacroplasty/Vertebroplasty 05/22/2022 Toams Falcon MD [facility] RAD CT SCAN ??? PRO COLONOSCOPY, DIAGNOSTIC 09/07/2013 COLONOSCOPY, DIAGNOSTIC performed by Ximena Gu MD at [facility] ENDOSCOPY ??? PRO COLONOSCOPY, DIAGNOSTIC N/A 07/26/2022 COLONOSCOPY, DIAGNOSTIC performed by May Riojas MD at [facility] ENDOSCOPY ??? PRO COLONOSCOPY, REMV LESN, SNARE N/A 01/25/2020 COLONOSCOPY, POLYPECTOMY, REMOVAL LESION BY SNARE (WRVU 4.67) performed by Michelle Camarillo MDat [facility] ENDOSCOPY ??? PRO ENDOSCOPIC US EXAM, ESOPH N/A 03/14/2020 UPPER EUS- ENDOSCOPIC ULTRASOUND performed by Festus Carbalol MD at [facility] ENDOSCOPY ??? PRO LIGATE/STRIP LONG SAPH VEIN BELW SEP-FEM JUNC 06/02/2012 LIGATION\DIV\STRIP GREATER SAPHENOUS VEIN performed by BEATRICE RODRÍGUEZ at [facility] MAIN OR ??? PRO PHLEB VEINS - EXTREM - TO 20 06/02/2012 STAB PHLEBECTOMY KARLI VEINS, EXTREMITY 10-20 INCISIONS-SANTI performed by BEATRICE RODRÍGUEZ at [facility] MAIN OR ??? PRO UPPER GI ENDOSCOPY, BIOPSY N/A 09/02/2017 EGD WITH BIOPSY (WRVU 2.49) performed by Rahul Escobar MD at [facility] ENDOSCOPY ??? PRO UPPER GI ENDOSCOPY, BIOPSY N/A 01/25/2020 EGD WITH BIOPSY (WRVU 2.49) performed by Michelle Camarillo MD at [facility] ENDOSCOPY ??? PRO UPPER GI ENDOSCOPY, BIOPSY N/A 03/14/2020 EGD WITH BIOPSY (WRVU 2.49) performed by Festus Carballo MD at [facility] ENDOSCOPY ??? US GUIDED BIOPSY PROSTATE ([place] ONLY) 02/08/2019 US Guided Transrectal Biopsy 02/08/2019 [facility] RAD ULTRASOUND Family History Relation Problem Age of Onset ??? Father Cancer testicular Diabetes ??? Mother Cancer bone MEDICATIONS, SUPPLEMENTS & ALLERGIES (Update in chart) Medications 11/12/22 1140 Medication Sig Taking? polyethylene glycoL (Miralax) 17 gram/dose Powder Take 17 g by mouth daily. Yes ALPRAZolam (Xanax) 0.5 mg tablet Take 0.5 tablets by mouth 3 times daily as needed for Anxiety. Yes pravastatin (Pravachol) 20 mg Tablet Take 1 tablet by mouth daily. Yes abiraterone (Zytiga) 250 mg Tablet Take 1,000 mg by mouth daily. Yes predniSONE (Deltasone) 5 mg Tablet Take 5 mg by mouth daily. Yes leuprolide, 3 month, (Eligard) Syringe Inject 22.5 mg subcutaneously once. Yes tadalafiL (CIALIS) 5 mg Tablet Take 5 mg by mouth as needed for Erectile Dysfunction. Yes acetaminophen (TYLENOL) 650 mg Tablet Sustained Release Take 650 mg by mouth every 8 hours as needed for Pain. Do not exceed 6 tabs in 24 hours Yes aspirin 81 mg Tablet, Delayed Release (E.C.) Take 81 mg by mouth daily. Yes multivitamin (THERAGRAN) tablet Take 1 tablet by mouth daily. Yes Allergies Allergen Reactions ??? Penicillins Anaphylaxis Tongue swelling ??? Betamethasone hiccups after injection ??? Dexamethasone Hiccups after injection ??? Triamcinolone Acetonide Hiccups [] Mr. Mckeon did not identify any supplements, including calcium and vitamins. ADVANCE DIRECTIVES (Populated from chart) Advance Directives (Y or N): N HEALTH RISK ASSESSMENT (HRA) (Populated from questionnaire) 11/10/2022 3:46 PM myD-H Annual Wellness Visit Responses Health in general Excellent Quality of life Excellent Physical health Excellent Mental health Excellent Satisfaction with social activities Excellent Ability to carry out social activities Excellent Ability to carry out physical activities Completely Bothered by emotional problems Never Rate of fatigue Moderate Rate of pain 5 PROMIS-10 Physical Health Score 50.8 PROMIS-10 Mental Health Score 67.6 Hearing Loss Yes Activity - low level (Bathing, Dressing, Eating, Mobility, Using toilet, Grooming) No, I do not have difficulty with these activities Activity - high level (Laundry, Housekeeping, Banking, Shopping, Use phone, Food Prep, Transportation, Taking meds) I do not need any help Fallen in last year No Difficulties with balance or walking Yes Injured as a result of a fall No Walkways free of cords/clutter Yes Smoke detectors in house Yes Difficulty walking 1/4 mile No or some difficulties Difficulty climbing a flight of stairs No or some difficulties Involuntarily lost > 10 pounds No Feel everything is an effort/could not get going Rarely or sometimes (2 times or less/week) Physical activity level Regular physical activity (at least 2-4 hours per week) Disability Score (FiND) 0 (Robust) Little interest or pleasure Not at all Down, depressed, hopeless Not at all Feel lonely or isolated Never Have money for everyday living Yes Confident in managing health problems Very confident Confident filling medical forms Extremely Medication finances No Smoking Status Never Drinking frequency Monthly or less Drinks per day 0 drinks 6+ drinks on one occasion Never Audit-C Score 1 (Low Risk) 10 mins of vigorous physical activity 7 days Time spent on vigorous physical activity 50 minutes 10 mins of moderate physical activity 7 days Time spent on moderate physical activity 50 minutes Eat Fruit 3 - 5 times per week Eat Vegetables 3 - 5 times per week Wear Seatbelt Always Tooth or Mouth Problems No Urinary Incontinence No Sexually active Yes Live Alone No Who is taking survey I am (patient) VITAL SIGNS (Record in chart) Visit Vitals BP 128/80 (BP Location (NBP): Left arm, Patient Position: Sitting, BP Cuff Sizes: Adult (25-34 cm))Comment (BP Cuff Sizes): long Pulse 67 Temp 36.3 ??C (97.3 ??F) (Temporal) Resp 16 Ht 178 cm (5' 10.08) Wt 87.3 kg (192 lb 6.4 oz) Comment: with shoes SpO2 100% BMI 27.54 kg/m?? DEPRESSION SCREENING (Populated from chart & questionnaire) PHQ9 Questionnaires Data (Clinic and Pt Entered): last 4 values of depression scores 03/12/2022 7:14 AM 10/24/2022 12:36 PM PHQ-9 QUESTIONNAIRE SCORE ONLY (Patient) PHQ - 9 Score (Patient) 0 (No Depression) 1 (Minimal Depression) 08/24/2015 12:00 AM 12/08/2015 12:00 AM 03/22/2016 12:00 AM 11/22/2016 12:00 AM PHQ-9 QUESTIONNAIRE SCORE ONLY (Clinic) PHQ - 9 Score (Clinic) 4 (Minimal Depression) 0 (No Depression) 2 (Minimal Depression) 6 (Mild Depression) * A score of 5 or [...] in chart) Health Maintenance Topic Date Due ??? Advance Directive Never done ??? Covid-19 Vaccine (3 - Booster for Pfizer series) 01/11/2021 ??? Influenza (Flu) vaccine (1 of 1 - Influenza standard series) 03/28/2022 ??? Tetanus vaccine 04/02/2023 ??? Zoster vaccine Completed ??? Hepatitis C Screening Completed ??? Pneumoccocal Vaccine: 65+ Completed ??? Tdap adult Completed ??? Colorectal Cancer Screening Discontinued Popular services typically covered by Medicare Part B for patients 65 and older (may be more frequent in high risk patients) DT: 04/09 Pneumovax: 09/09 and [id number] Zostavax: 04/09 and shingrix 06/16 and 07/2020 Flu: recommend yearly Covid: completed series ? bivalent Seat Belts: consistent Cholesterol (total/HDL/LDL): 08/17: 157/72/72 Colon cancer screenin01/25/20: polyps HIV: neg ASA age 45-79: on 81 mg daily AAA screening: non-smoker PSA: see above Hep [...] on Eligard. Followed by urology PSA undetectable 09/2022 Insufficiency fractures: pt with sacral and L5 fractures that have not healed on MRI 04/09/2022. Underwent sacroplasty on 04/2022. Has been seen by endocrine with plan to treat. Of note PTH is elevated to 72 with normal calcium and vit D. Elevated urinary calcium General - No apparent distress. ENT - [...] touch intact. DTR's - 2+, symmetrical. Ken was seen today for annual wellness visit. Diagnoses and all orders for this visit: Anxiety - Cont current management Age-related osteoporosis with current pathological fracture, sequela/Hyperparathyroidism - Noted elevated PTH with normal calcium but noted to have elevated urinary calcium making me consider this is primary hyperparathyoid. Will send message to Dr Puckett. Pure hypercholesterolemia - Cont statin Malignant neoplasm of prostate - Cont to follow with oncology Wellness examination - See above Fatigue, unspecified type - TSH; Future - T4, free; Future - Vitamin B12; Future [] A copy of the Risk Factors [...] 11:30 AM EDT Office [place] [address] Charline Ziegler MD [facility] [place] [address] documented as of this encounter Procedures Procedure Name Priority Date/Time Associated Diagnosis Comments HC THYROID STIMULATING HORMONE, SERUM Routine 11/12/2022 2:16 PM EDT Fatigue, unspecified type T4, FREE Routine 11/12/2022 2:16 PM EDT Fatigue, unspecified type HC VENIPUNCTURE Routine 11/12/2022 2:16 PM EDT Fatigue, unspecified type documented in this encounter Results * Vitamin B12 (11/12/2022 2:16 PM EDT) Vitamin B12 890 232 - 1,245 pg/mL [facility] Blood 11/12/2022 2:16 PM EDT 11/12/2022 2:23 PM EDT Narrative Resulting Agency Comment Spec In Lab Reji Adams MD CHEMISTRY ORDERABLES [facility] [place] [address] * T4, free (11/12/2022 2:16 PM EDT) Free T4 1.15 0.93 - 1.70 ng/dL [facility] Comment: Reference Interval (ng/dL): Females: ??First Trimester: 0.97-1.68 ??Second Trimester: 0.77-1.51 ??Third Trimester: 0.77-1.49 Blood 11/12/2022 2:16 PM EDT 11/12/2022 2:23 PM EDT Narrative Resulting Agency Comment Spec In Lab Reji Adams MD CHEMISTRY ORDERABLES Performing Organization Address City/[facility] Co de Phone Number [facility] [place] [address] * TSH (11/12/2022 2:16 PM EDT) Thyroid Stimulating Hormone 1.14 0.27 - 4.20 mcIU/mL [facility] Comment: Reference Interval (mcIU/mL): Females: ??First Trimester: 0.23-3.88 ??Second Trimester: 0.22-3.90 ??Third Trimester: 0.44-4.66 Blood 11/12/2022 2:16 PM EDT 11/12/2022 2:23 PM EDT Narrative Resulting Agency Comment Spec In Lab Reji Adams MD CHEMISTRY ORDERABLES Performing Organization Address [facility] Co de Phone Number [facility] [place] [address] documented in this encounter Visit Diagnoses Diagnosis Anxiety Anxiety state, unspecified Age-related osteoporosis with current pathological fracture, sequela Hyperparathyroidism Hyperparathyroidism, unspecified Pure hypercholesterolemia Malignant neoplasm of prostate Wellness examination Fatigue, unspecified type PSVT (paroxysmal supraventricular tachycardia) Paroxysmal supraventricular tachycardia Prostate cancer metastatic to intrapelvic lymph node documented in this encounter Care Teams Document Advisor Relationship Specialty Start Date End Date Reji Adams MD [facility] [place] [address] PCP - General General Internal Medicine 07/13/15 documented as of this encounter
--- OUTSIDE RECORDS SUMMARY | 2024-07-09 11:06 | XMS_ITS | Encounter Summary ---
Author Organization [facility] Address [facility] [place] [address] Care Team Providers Care Manager Linux Name Role Phone Reji Adams MD Primary Care Provider [phone] Encounter Details Date Type Department Care Team (Latest Contact Info) Description 01/22/2023 9:51 AM EDT - 01/22/2023 11:59 PM EDT Hospital Encounter Hematology [place] [address] Prostate cancer metastatic to intrapelvic lymph node; Malignant neoplasm of prostate Discharge Disposition: Home Social History Tobacco Use [...] tablet Take 1 tablet by mouth daily. triamcinolone acetonide (NASACORT ALLERGY NASL) by Nasal route daily. PRN 12/11/2023 ALPRAZolam (Xanax) 0.25 mg tabletIndications:A nxiety Take 1 tablet by mouth 3 times daily as needed for Anxiety. 70 tablet 01/14/2023 02/09/2023 hydroCHLOROthiazide (Microzide) 12.5 mg capsule Take 1 capsule by mouth daily. 90 capsule 3 11/13/2022 03/17/2023 pravastatin (Pravachol) 20 mg Tablet Take 1 tablet by mouth daily. 90 tablet 3 08/05/2022 04/28/2023 leuprolide, 3 month, (Eligard) Syringe Inject 22.5 mg subcutaneously once. 03/17/2023 tadalafiL (CIALIS) 5 mg Tablet Take 5 mg by mouth as needed for Erectile Dysfunction. 03/17/2023 aspirin 81 mg Tablet, Delayed Release (E.C.) Take 81 mg by mouth daily. 03/17/2023 documented as of this encounter Plan of Treatment Upcoming Encounters Date Type Department Care Team (Late st Contact Info) Description 12/15/2024 11:30 AM EDT Office Visit [place] [address] Charlnie Ziegler MD [facility] [place] [address] Scheduled Orders Name Type Priority Associated Diagnoses Orde r Schedule Lab Use Only, Fax Request Lab Routine Malignant neoplasm of prostate 1 Occurrences starting 01/22/2023 until 01/22/2023 documented as of this encounter Procedures Procedure Name Priority Date/Time Associated Diagnosis Comments HEMOGRAM Routine 01/22/2023 10:20 AM EDT Prostate cancer metastatic to intrapelvic lymph node DIFFERENTIAL, AUTOMATED Routine 01/22/2023 10:20 AM EDT Prostate cancer metastatic to intrapelvic lymph node CBC (WITH DIFF) Routine 01/22/2023 10:20 AM EDT Prostate cancer metastatic to intrapelvic lymph node TESTOSTERONE, TOTAL Routine 01/22/2023 1 0:20 AM EDT Prostate cancer metastatic to intrapelvic lymph node PSA (ULTRASENSITIVE) Routine 01/22/2023 10:20 AM EDT Prostate cancer metastatic to intrapelvic lymph node COMPREHENSIVE METABOLIC PANEL Routine 01/22/2023 10:20 AM EDT Prostate cancer metastatic to intrapelvic lymph node documented in this encounter Results * Differential, Automated (01/22/2023 10:20 AM EDT) Neutrophil % 61.5 % [facility] Neutrophil Absolute 3.15 1.70 - 6.10 x10(3)/[facility] Lymph % 25.4 % [facility] Lymphocytes Abs 1.3 0.9 - 3.2 x10(3)/[facility] Monocyte % 9.6 % [facility] Monocyte Abs 0.5 0.3 - 0.9 x10(3)/[facility] Eos % 2.5 % [facility] Eosinophils Abs 0.1 0.0 - 0.4 x10(3)/[facility] Basophil % 0.8 % [facility] Baso Absolute 0.0 0.0 - 0.1 x10(3)/[facility] Immature Gran % 0.20 % [facility] Comment: Immature granulocytes(IG's)percentage and absolute count will include metamyelocytes, myelocytes, and promyelocytes. Blood smears from CBCs yielding IG's will be scanned manually for concordance. If this scan disagrees with the automated IG or if promyelocytes are noted, a manual differential will be performed. Immature Gran Absolute 0.01 0.00 - 0.04 x10(3)/[facility] Blood 01/22/2023 10:2 0 AM EDT 01/22/2023 1:14 PM EDT Narrative Resulting Agency Comment Spec In Lab Mike Louise MD HEMATOLOGY ORDERABLE S [facility] [place] [address] * (ABNORMAL) Hemogram (01/22/2023 10:20 AM EDT) White Blood Cell 5.1 4.0 - 9.5 x10(3)/mc L [facility] Red Blood Cell 4.59 4.58 - 5.54 x10(6)/ L [facility] Hemoglobin 14.5 13.7 - 16.5 g/dL [facility] Hematocrit 41.6 40.5 - 48.5 % [facility] Mean Cell Volume 90.6 82.9 - 93.1 fL [facility] Mean Cell Hemoglobin 31.6 27.5 - 32.1 pg [facility] Mean Cell Hemoglobin Concentration 34.9 32.0 - 35.7 g/dL [facility] Platelet 163 145 - 357 x10(3)/mc L [facility] RDW Standard Deviation 45.3(H) 36.0 - 45.0 fL [facility] RDW coefficient of variation 13.5 11.4 - 13.8 % [facility] Mean Platelet Volume 9.3 7.6 - 12.9 fL [facility] NRBC% auto 0.0 % [facility] NRBC Absolute 0.000 0.000 - 0.000 x10(3)/ L [facility] Blood 01/22/2023 10:2 0 AM EDT 01/22/2023 1:14 PM EDT Narrative Resulting Agency Comment Spec In Lab Mike Louise MD HEMATOLOGY ORDERABLE S Performing Organization Address [facility] Co de Phone Number [facility] [place] [address] * PSA (Ultrasensitive) (01/22/2023 10:20 AM EDT) Prostate Specific Antigen (Ultrasensitive) <0.01 0.00 - 4.00 ng/mL [facility] Comment: PLEASE NOTE: The above reference interval is intended for healthy males with an intact prostate. Values within this reference interval may indicate recurrence in men who have undergone radical prostatectomy. This result was generated using a Bapulas immunoassay. ??Results obtained from other methods or manufacturers cannot be used interchangeably with this method. Blood 01/22/2023 10:2 0 AM EDT 01/22/2023 1:02 PM EDT Narrative Resulting Agency Comment Spec In Lab Mike Louise MD CHEMISTRY ORDERABLES Performing Organization Address [facility] Co de Phone Number [facility] [place] [address] * Comprehensive metabolic panel (non-fasting) (01/22/2023 10:20 AM EDT) Glucose 88 65 - 199 mg/dL [facility] Comment:Diabetes: >=200 mg/d L plus symptoms Blood Urea Nitrogen 15 10 - 20 mg/dL [facility] Creatinine 0.93 0.80 - 1.50 mg/dL [facility] Sodium 141 135 - 145 mmol/L [facility] Potassium 4.2 3.5 - 5.0 mmol/L [facility] Comment: Please note: ??Patients with WBC >100,000 may have falsely elevated Potassium levels. ??For accurate Potassium quantification in these patients send serum separator tube (gold top) for subsequent determinations. ??Contact the Clinical Chemistry Laboratory if there are any questions. Chloride 103 98 - 107 mmol/L [facility] Carbon Dioxide 25 22 - 31 mmol/L [facility] Anion Gap 13 5 - 15 mmol/L [facility] Calcium 9.6 8.5 - 10.5 mg/dL [facility] Protein, Total 6.9 6.1 - 8.0 g/dL [facility] Albumin 4.6 3.2 - 5.2 g/dL [facility] Aspartate Aminotransferase 20 0 - 39 unit/L [facility] Alanine Aminotransferase 15 0 - 55 unit/L [facility] Alkaline Phosphatase 70 40 - 130 unit/L [facility] Bilirubin, Total 0.7 0.2 - 1.3 mg/dL [facility] Est Glomerular Filtration Rate 85 >=60 mL/min/1. 73 m?? [facility] Comment: This patient's estimated GFR was [...] and symptoms in addition to eGFR. Blood 01/22/2023 10:2 0 AM EDT 01/22/2023 1:02 PM EDT Narrative Resulting Agency Comment Spec In Lab Mike Louise MD CHEMISTRY ORDERABLES Performing Organization Address City/State/[facility] Co de Phone Number [facility] [place] [address] * (ABNORMAL) Testosterone, total (01/22/2023 10:20 AM EDT) Testosterone <0.12(L) 1.93 - 7.40 ng/mL [facility] Comment: Pediatric Reference Ranges: ? Males [...] Tung Johanna Testosterone II 05/2022, v2.0 Blood 01/22/2023 10:2 0 AM EDT 01/22/2023 1:16 PM EDT Narrative Resulting Agency Comment Spec In Lab Mike Louise MD CHEMISTRY ORDERABLES [facility] [place] [address] documented in this encounter Visit Diagnoses Diagnosis Prostate cancer metastatic to intrapelvic lymph node Malignant neoplasm of prostate documented in this encounter Care Teams Manager Linux Relationship Specialty Start Date End Date Reji Adams MD [facility] GENERAL INTERNAL [place] [address] PCP - General General Internal Medicine 07/13/15 documented as of this encounter
--- OUTSIDE RECORDS SUMMARY | 2024-07-09 11:06 | XMS_ITS | Encounter Summary ---
Author Organization [facility] [place] [address] Care Team Providers Care Train Starter Name Role Phone Reji Adams MD Primary Care Provider [phone] Encounter Details Date Type Department Care Team (Latest Contact Info) Description 11/13/2022 Travel Social History Tobacco Use Types Packs/Day [...] 11:30 AM EDT Office [place] [address] Charline Ziegler MD [facility] [place] [address] documented as of this encounter Visit Diagnoses Not on filedocumented in this encounter Care Teams Train Starter Relationship Specialty Start Date End Date Reji Adams MD [facility] [place] [address] PCP - General General Internal Medicine 07/13/15 documented as of this encounter
--- OUTSIDE RECORDS SUMMARY | 2024-07-09 11:06 | XMS_ITS | Encounter Summary ---
Author Organization [facility] Address [facility] [place] [address] Care Team Providers Care Furniture Detailer Name Role Phone Reji Adams MD Primary Care Provider [phone] Encounter Details Date Type Department Care Team (Late st Contact Info) Description 01/09/2023 Interpretation Only [address] [phone] Junior Bradley Jr., MD [address] [place] [address] Social History Tobacco Use Types Packs/Day Years [...] 11:30 AM EDT Office [place] [address] Charline Ziegler MD [facility] [place] [address] documented as of this encounter Procedures Procedure Name Priority Date/Time Associated Diagnosis Comments CT ABDOMEN AND PELVIS W CONTRAST STAT 01/09/2023 9:14 PM EDT documented in this encounter Results * CT Abdomen & Pelvis w Contrast (01/09/2023 9:14 PM EDT) PT CLASS E RAD ADMITDTTM RAD PT RAD INFO [id number]^L YONS^JUNIOR RAD EXAM DESC CTAPW^CT ABD AND PELVIS WITH CONTRAS^RIS RAD Anatomical Region Laterality Modality Abdomen, Pelvis Computed Tomogra phy Impressions 01/09/2023 9:24 PM EDT No acute finding. Thank you for letting us participate in the care of this patient. ??If you are a health care provider and have any questions regarding this report, please contact the number below. ??For patients who have questions please contact the health resident care assistant that requested your imaging first. ? Narrative 01/09/2023 9:24 PM EDT EXAMINATION: CT ABD AND PELVIS WITH CONTRAS [...] facet degeneration are most pronounced at L2-3. Procedure Note Tre Cr MD - 01/09/2023 EXAMINATION: CT ABD AND PELVIS WITH CONTRAS CLINICAL HISTORY: sudden onset of R upper quadrant pain now resolving butwith R upper quadrant tenderness, and guarding TECHNIQUE: Helical CT of the abdomen and pelvis following theintravenous administration of 99 mL of Omnipaque 350.. COMPARISON: CT abdomen pelvis 07/09/2022 FINDINGS: Visualized lung bases are normal. The liver, spleen, adrenal glands, gallbladder, and pancreas are normal.Biliary system is nondilated. Unchanged small bilateral renal cysts. No evidenceof hydronephrosis. Bowel is nondilated. No free air or free fluid. Portions of the pelvis and majority of the bladder are obscured byartifact. Abdominal aorta is normal in caliber. No lymphadenopathy. Bilateral sacroplasty's are noted and L5 vertebroplasty. Ankylosis ofL4-S1. Disc and facet degeneration are most pronounced at L2-3. IMPRESSION No acute finding. Thank you for letting us participate in the care of this patient. If youare a health care provider and have any questions regarding this report,please contact the number below. For patients who have questions please contactthe health resident care assistant that requested your imaging first. Junior Bradley Jr., MD IMG CT ORDERABLES documented in this encounter Visit Diagnoses Not on filedocumented in this encounter Care Teams Furniture Detailer Relationship Specialty Start Date End Date Reji Adams MD [facility] GENER[facility] [place] [address] PCP - General General Internal Medicine 07/13/15 documented as of this encounter
--- OUTSIDE RECORDS SUMMARY | 2024-07-09 11:06 | XMS_ITS | Encounter Summary ---
Author Organization [facility] [place] [address] Care Team Providers Care Fiberglass Boat Finisher Name Role Phone Reji Adams MD Primary Care Provider [phone] Encounter Details Date Type Department Care Team (Latest Contact Info) Description 01/07/2023 Travel Social History Tobacco Use Types Packs/Day [...] 11:30 AM EDT Office Visit [place] [address] Charline Ziegler MD [facility] [place] [address] documented as of this encounter Visit Diagnoses Not on filedocumented in this encounter Care Teams Fiberglass Boat Finisher Relationship Specialty Start Date End Date Reji Adams MD [facility] [place] [address] PCP - General General Internal Medicine 07/13/15 documented as of this encounter
--- OUTSIDE RECORDS SUMMARY | 2024-07-09 11:06 | XMS_ITS | Encounter Summary ---
Author Organization [facility] Address [facility] [place] [address] Care Team Providers Care Regional Wildlife Agent Name Role Phone Reji Adams MD Primary Care Provider [phone] Reason for Visit * Reason Onset Date Comments Medication Refill 11/30/2022 Encounter Details Date Type Department Care Team (Late st Contact Info) Description 11/30/2022 Refill Internal Medicine at [address] [address] Reji Adams MD [facility] [place] [address] Anxiety Social History Tobacco Use Types Packs/Day [...] 11:30 AM EDT Office [place] [address] Charline Ziegler MD [facility] [place] [address] documented as of this encounter Visit Diagnoses Diagnosis Anxiety Anxiety state, unspecified documented in this encounter Care Teams Regional Wildlife Agent Relationship Specialty Start Date End Date Reji Adams MD [facility] [place] [address] PCP - General General Internal Medicine 07/13/15 documented as of this encounter
--- OUTSIDE RECORDS SUMMARY | 2024-07-09 11:06 | XMS_ITS | Encounter Summary ---
Author Organization [facility] [place] [address] Care Team Providers Care Fur Farmer Name Role Phone Reji Adams MD Primary Care Provider [phone] Reason for Visit * Reason Onset Date Comments Questions 01/07/2023 Encounter Details Date Type Department Care Team (Late st Contact Info) Description 01/07/2023 Telephone [place]ematology [place] [phone] Renetta Campos, CENTER SALES AND SERVICE ASSOCIATE ROOM Questions Social History Tobacco Use Types Packs/Day [...] Telephone Encounter - Renetta Campos RN - 01/07/2023 4:12 PM EDT Message received from bilingual secretary: [phone] Ken called asking if he should take an antibiotic before having oral surgery. He said his dentist asked him to call us to find out. Spoke w/ pt who stated that he's going to have an extraction done. Oral surgeon requested he check w/ oncology. He has been off his zytiga since 11/25. Reviewed that we defer to the dentist/oral surgeon on need for antibiotics as per their usual practice. Recommend his oral surgeon follow their normal practice. Pt is aware to call w/ any concerns/questions. documented in this encounter Plan of Treatment Upcoming Encounters Date Type Department Care Team (Late st Contact Info) Description 12/15/2024 11:30 AM EDT Office [place] [address] Charline Ziegler MD [facility] [address] documented as of this encounter Visit Diagnoses Not on filedocumented in this encounter Care Teams Fur Farmer Relationship Specialty Start Date End Date Reji Adams MD [facility] [place] [address] PCP - General General Internal Medicine 07/13/15 documented as of this encounter
--- OUTSIDE RECORDS SUMMARY | 2024-07-09 11:06 | XMS_ITS | Encounter Summary ---
Author Organization [facility] Address [facility] [place] [address] Care Team Providers Care Swine Genetics Researcher Name Role Phone Reji Adams MD Primary Care Provider [phone] Encounter Details Date Type Department Care Team (Late st Contact Info) Description 01/19/2023 Interpretation Only [address] [phone] Say De Los Santos MD [address] [place] [address] Social History Tobacco Use Types Packs/Day Years [...] 11:30 AM EDT Office [place] [address] Charline Ziegler MD [facility] [place] [address] documented as of this encounter Visit Diagnoses Not on filedocumented in this encounter Care Teams Swine Genetics Researcher Relationship Specialty Start Date End Date Reji Adams MD [facility] GENERAL [place] [address] PCP - General General Internal Medicine 07/13/15 documented as of this encounter
--- OUTSIDE RECORDS SUMMARY | 2024-07-09 11:06 | XMS_ITS | Encounter Summary ---
Author Organization [facility] Address [facility] [place] [address] Care Team Providers Care Pot Feeder Name Role Phone Reji Adams MD Primary Care Provider [phone] Encounter Details Date Type Department Care Team (Latest Contact Info) Description 01/07/2023 2:08 PM EDT - 01/07/2023 11:59 PM EDT Hospital Encounter Mammography/[place] [address] [place] [address] Osteoporosis, unspecified osteoporosis type, unspecified pathological fracture presence Discharge Disposition: Home Social History Tobacco Use [...] by mouth daily. ALPRAZolam (Xanax) 0.25 mg tabletIndications:A nxiety Take 1 tablet by mouth 3 times daily as needed for Anxiety. 40 tablet 12/24/2022 01/14/2023 hydroCHLOROthiazide (Microzide) 12.5 mg capsule Take 1 [...] 11:30 AM EDT Office [place] [address] Charline Ziegler MD [facility] [address] documented as of this encounter Procedures Procedure Name Priority Date/Time Associated Diagnosis Comments DXA CENTRAL SPINE, HIP, AND/OR WHOLE BODY (GENERIC) Routine 01/07/2023 3:04 PM EDT Osteoporosis, unspecified osteoporosis type, unspecified pathological fracture presence documented in this encounter Results * DXA Central Spine, Hip, and/or Whole Body (Generic) (01/07/2023 3:04 PM EDT) Anatomical Region Laterality Modality C-spine, Hip N/A Other Impressions 01/07/2023 10:45 PM EDT The lowest T-score at one or more sites fulfills the WHO classification for low bone mass or osteopenia. The fracture risks are increased. Estimating Fracture Risk: The relationship between bone mineral density (BMD) and risk of fracture is well established. As BMD decreases, risk increases. Quantifying risk is difficult and is usually limited to estimation of the relative risk - a term which may have limited value when trying to discuss an individual's risk. Estimating the absolute risk for a patient requires an understanding of the incidence rate in a given population and consideration of multiple, partially independent, risk factors in addition to BMD. The World Health Organization (WHO) has developed a fracture risk prediction tool that calculates a ten-year risk of major osteoporotic fracture based on femoral neck bone density measurements and nine clinical risk factors for individuals who have not been treated for osteoporosis. This is available through an interactive web-based interface (http://www.shef.ac.uk/FRAX/) and can be used to estimate a given patient's absolute risk of major osteoporotic fracture or hip fracture over the next 10 years. These estimates may prove useful when discussing risk with a patient. It is important, however, to understand the tool's limitations and how a given individual's risk might differ from the tool's estimate. The tool does not take into account the dose-response associated with most risk factors. For example, the significant increase in risk associated with multiple prior fractures compared to a single prior fracture is not taken into account. Similarly, the location of a previous fracture, the amount of glucocorticoids and number of cigarettes smoked are not considered. These limitations are discussed in a Frequently Asked Questions section of the FRAX website which you are encouraged to review. ? The bone density raw data are listed below. Bone density raw data: ? Bone Density Report ? Name: ?Ken Mckeon Age: ? 77 Sex: ? Male Ethnicity: ? White Date of : 1945 Referring Provider: ROBIN COLON Study: Bone densitometry was performed. Model: Wavii A (S/N [id number]) SW version 13.6.0.5 Exam Date: January 07, 2023 Accession number: [id number] Bone Density: Region ? BMD ?T-score ??Z-score ? AP Spine(L1, L3, L4) ? 0.880 ?? -1.6 ? -0.8 ? 1/3 Forearm (Left) ? 0.667 ?? -0.4 ? -1.1 ? World Health Organization criteria for BMD impression classify patients as: Normal (T-score at or above -1.0), Osteopenia (T-score between -1.0 and -2.5), or Osteoporosis (T-score at or below -2.5). Thank you for letting us participate in the care of this patient. ??If you are a health care provider and have any questions regarding this report, please contact the number below. ??For patients who have questions please contact the health critical care nurse practitioner that requested your imaging first. ? Electronically signed by: Liberty Diaz MD, [facility] ([phone]), at 01/07/2023 10:45 PM Narrative 01/07/2023 10:45 PM EDT EXAMINATION: DXA CENTRAL SPINE, HIP, AND/OR WHOLE BODY (GENERIC) CLINICAL HISTORY: s/p L5 fx, prostate cancer on Lupron please also do forearm, ,entered by ordering service TECHNIQUE: Scans were acquired at the lumbar spine, and left forearm. L2 measurement is excluded because this measurement is over 1 standard deviation different than adjacent vertebrae. COMPARISON: None FINDINGS: Lowest T-score at a diagnostic region of interest: T-score: -1.6 , LOUISA: Lumbar spine, WHO diagnosis: low bone mass or osteopoenia. Procedure Note Liberty Diaz MD - 01/07/2023 EXAMINATION: DXA CENTRAL SPINE, HIP, AND/OR WHOLE BODY (GENERIC) CLINICAL HISTORY: s/p L5 fx, prostate cancer on Lupron please also doforearm, ,entered by ordering service TECHNIQUE: Scans were acquired at the lumbar spine, and left forearm. L2 measurement is excluded because this measurement is over 1 standarddeviation different than adjacent vertebrae. COMPARISON: None FINDINGS: Lowest T-score at a diagnostic region of interest: T-score: -1.6 , LOUISA: Lumbar spine, WHO diagnosis: low bone mass orosteopoenia. IMPRESSION The lowest T-score at one or more sites fulfills the WHO classificationfor low bone mass or osteopenia. The fracture risks are increased. Estimating Fracture Risk: The relationship between bone mineral density (BMD) and risk of fractureis well established. As BMD decreases, risk increases. Quantifying risk isdifficult and is usually limited to estimation of the relative risk - a term which mayhave limited value when trying to discuss an individual's risk. Estimatingthe absolute risk for a patient requires an understanding of the incidencerate in a given population and consideration of multiple, partially independent,risk factors in addition to BMD. The World Health Organization (WHO) has developed a fracture riskprediction tool that calculates a ten-year risk of major osteoporotic fracture basedon femoral neck bone density measurements and nine clinical risk factorsfor individuals who have not been treated for osteoporosis. This isavailable through an interactive web-based interface (http://www.shef.ac.uk/FRAX/)and can be used to estimate a given patient's absolute risk of majorosteoporotic fracture or hip fracture over the next 10 years. These estimates mayprove useful when discussing risk with a patient. It is important, however, to understand the tool's limitations and how a given individual's risk mightdiffer from the tool's estimate. The tool does not take into account thedose-response associated with most risk factors. For example, the significant increasein risk associated with multiple prior fractures compared to a single priorfracture is not taken into account. Similarly, the location of a previous fracture,the amount of glucocorticoids and number of cigarettes smoked are notconsidered. These limitations are discussed in a Frequently Asked Questions sectionof the FRAX website which you are encouraged to review. ? The bone density raw data are listed below. Bone density raw data: Bone Density Report Name: Ken Mckeon Age: 77 Sex: Male Ethnicity: White Date of : 1945 Referring Provider: ROBIN COLON Study: Bone densitometry was performed. Model: Wavii A (S/N [id number]) SW version 13.6.0.5 Exam Date: January 07, 2023 Accession number: [id number] Bone Density: Region BMD T-score Z-score AP Spine(L1, L3, L4) 0.880 -1.6 -0.8 1/3 Forearm (Left) 0.667 -0.4 -1.1 World Health Organization criteria for BMD impression classify patients as: Normal (T-score at or above -1.0), Osteopenia (T-score between -1.0 and -2.5), or Osteoporosis (T-score at or below -2.5). Thank you for letting us participate in the care of this patient. If youare a health care provider and have any questions regarding this report,please contact the number below. For patients who have questions please contactthe health critical care nurse practitioner that requested your imaging first. Robin Colon MD IMG DEXA ORDERABLES documented in this encounter Visit Diagnoses Diagnosis Osteoporosis, unspecified osteoporosis type, unspecified pathological fracture presence documented in this encounter Care Teams Pot Feeder Relationship Specialty Start Date End Date Reji Adams MD [facility] GENER[place] [address] PCP - General General Internal Medicine 07/13/15 documented as of this encounter
--- OUTSIDE RECORDS SUMMARY | 2024-07-09 11:06 | XMS_ITS | Encounter Summary ---
Author Organization [facility] [place] [address] Care Team Providers Care Customer Experience Professional Name Role Phone Reji Adams MD Primary Care Provider [phone] Encounter Details Date Type Department Care Team (Latest Contact Info) Description 11/12/2022 Travel Social History Tobacco Use Types Packs/Day [...] 11:30 AM EDT Office [place] [address] Charline Ziegler MD [facility] [place] [address] documented as of this encounter Visit Diagnoses Not on filedocumented in this encounter Care Teams Customer Experience Professional Relationship Specialty Start Date End Date Reji Adams MD [facility] [place] [address] PCP - General General Internal Medicine 07/13/15 documented as of this encounter
--- OUTSIDE RECORDS SUMMARY | 2024-07-09 11:06 | XMS_ITS | Encounter Summary ---
Author Organization [place] [address] Care Team Providers Care Manager Market Name Role Phone Reji Adams MD Primary Care Provider [phone] Encounter Details Date Type Department Care Team (Latest Contact Info) Description 01/22/2023 Travel Social History Tobacco Use Types Packs/Day [...] 11:30 AM EDT Office [place] [address] Charline Ziegler MD [facility] [place] [address] documented as of this encounter Visit Diagnoses Not on filedocumented in this encounter Care Teams Manager Market Relationship Specialty Start Date End Date Reji Adams MD [facility] [place] [address] PCP - General General Internal Medicine 07/13/15 documented as of this encounter
--- OUTSIDE RECORDS SUMMARY | 2024-07-09 11:06 | XMS_ITS | Encounter Summary ---
Author Organization [facility] [place] [address] Care Team Providers Care Independent Film Maker Name Role Phone Reji Adams MD Primary Care Provider [phone] Reason for Visit * Reason Onset Date Comments Letter Request From Patient 01/16/2023 Encounter Details Date Type Department Care Team (Late st Contact Info) Description 01/16/2023 Telephone Hematology [place] [phone] Renetta Campos, SQL REPORT DEVELOPER ROOM Letter Request From Patient Social History Tobacco Use Types Packs/Day Years [...] Telephone Encounter - Renetta Campos RN - 01/16/2023 10:59 AM EDT Message received from executive secretary: [phone] Call from Ken requesting a letter for his dentist stating it is ok for him to have a tooth pulled. F: [phone] Dr. Wells. Per review of medical record: 1 Abiraterone and prednisone have been on hold x 2 months, next appt w/ med one 01/22 Letter written and sent to MD for review and signature. Letter sent to pt via [facility] and faxed to dental office at provided fax. documented in this encounter Plan of Treatment Upcoming Encounters Date Type Department Care Team (Late st Contact Info) Description 12/15/2024 11:30 AM EDT Office Visit [place] [address] Charline Ziegler MD [facility] [place] [address] documented as of this encounter Visit Diagnoses Not on filedocumented in this encounter Care Teams Independent Film Maker Relationship Specialty Start Date End Date Reji Adams MD [facility] [place] [address] PCP - General General Internal Medicine 07/13/15 documented as of this encounter
--- OUTSIDE RECORDS SUMMARY | 2024-07-09 11:06 | XMS_ITS | Encounter Summary ---
Author Organization [facility] [place] [address] Care Team Providers Care Dietetic Assistant Name Role Phone Reji Adams MD Primary Care Provider [phone] Encounter Details Date Type Department Care Team (Late st Contact Info) Description 01/19/2023 Interpretation Only [address] [address] Unknown None Social History Tobacco Use Types Packs/Day Years [...] 11:30 AM EDT Office [place] [address] Charline Ziegler MD [facility] [place] [address] documented as of this encounter Procedures Procedure Name Priority Date/Time Associated Diagnosis Comments CT ANGIOGRAM OF CHEST (NON-CORONARY) W CONTRAST STAT 01/19/2023 9:54 PM EDT documented in this encounter Results * CT Angiogram Chest (Non-Coronary) w Contrast (01/19/2023 9:54 PM EDT) PT CLASS E RAD ADMITDTTM RAD PT RAD INFO [id number]^FINDL EY^SAY PROCTOR RAD EXAM DESC CTTHAO^CT ANGIOGRAPHY PE CHEST^RIS RAD Anatomical Region Laterality Modality Chest Computed Tomogra phy Impressions 01/19/2023 11:22 PM EDT No pulmonary embolism or acute cardiopulmonary abnormality. Preliminary report signed by: Ryan Cottrell at 01/19/2023 10:09 PM I have personally reviewed the image(s) and the resident's interpretation and agree with the findings, Sher Lorenzo MD at 01/19/2023 11:22 PM Thank you for letting us participate in the care of this patient. ??If you are a health care provider and have any questions regarding this report, please contact the number below. ??For patients who have questions please contact the health health care legal assistant that requested your imaging first. ? Electronically signed by: Sher Lorenzo MD, [facility] ([phone]), at 01/19/2023 11:22 PM Narrative 01/19/2023 11:22 PM EDT EXAMINATION: CT ANGIOGRAPHY PE CHEST CLINICAL HISTORY: dyspnea, palpitations, hx prostate CA TECHNIQUE: 3 mm thick axial contiguous sections were obtained through the chest via helical acquisition after the intravenous administration of contrast, 80 mL. Thin-section reconstructions as well as coronal and sagittal MIP reformatted images were generated to aid in evaluation. COMPARISON: CTA chest 11/30/2020. Chest x-ray 11/12/2022. FINDINGS: Pulmonary arteries: No pulmonary arterial filling defects. Other cardiovascular structures: Coronary and aortic calcifications. Pulmonary parenchyma: Minimal dependent atelectasis. Airways: Large airways are patent. No bronchial wall thickening. Pleura: No pneumothorax or pleural effusion. Lymph nodes: No lymphadenopathy. Other mediastinal structures: No significant findings. Lower neck: No significant findings. Upper abdomen: No significant findings. Skeletal structures: Partially visualized cervical ACDF hardware. Multilevel degenerative changes in the spine. Procedure Note Ortega Lorenzo MD - 01/19/2023 EXAMINATION: CT ANGIOGRAPHY PE CHEST CLINICAL HISTORY: dyspnea, palpitations, hx prostate CA TECHNIQUE: 3 mm thick axial contiguous sections were obtained through thechest via helical acquisition after the intravenous administration of contrast,80 mL. Thin-section reconstructions as well as coronal and sagittal MIPreformatted images were generated to aid in evaluation. COMPARISON: CTA chest 11/30/2020. Chest x-ray 11/12/2022. FINDINGS: Pulmonary arteries: No pulmonary arterial filling defects. Other cardiovascular structures: Coronary and aortic calcifications. Pulmonary parenchyma: Minimal dependent atelectasis. Airways: Large airways are patent. No bronchial wall thickening. Pleura: No pneumothorax or pleural effusion. Lymph nodes: No lymphadenopathy. Other mediastinal structures: No significant findings. Lower neck: No significant findings. Upper abdomen: No significant findings. Skeletal structures: Partially visualized cervical ACDF hardware.Multilevel degenerative changes in the spine. IMPRESSION No pulmonary embolism or acute cardiopulmonary abnormality. Preliminary report signed by: Ryan Cottrell at 01/19/2023 10:09 PM I have personally reviewed the image(s) and the resident's interpretationand agree with the findings, Sher Lorenzo MD at 01/19/2023 11:22 PM Thank you for letting us participate in the care of this patient. If youare a health care provider and have any questions regarding this report,please contact the number below. For patients who have questions please contactthe health health care legal assistant that requested your imaging first. Say De Los Santos MD IMG CT ORDERABL ES documented in this encounter Visit Diagnoses Not on filedocumented in this encounter Care Teams Dietetic Assistant Relationship Specialty Start Date End Date Reji Adams MD [facility] [place] [address] PCP - General General Internal Medicine 07/13/15 documented as of this encounter
--- OUTSIDE RECORDS SUMMARY | 2024-07-09 11:06 | XMS_ITS | Encounter Summary ---
Author Organization [facility] [place] [address] Care Team Providers Care Police Patrol Lieutenant Name Role Phone Reji Adams MD Primary Care Provider [phone] Reason for Visit * Reason Onset Date Comments Medical Care Coordination 02/16/2023 Encounter Details Date Type Department Care Team (Late st Contact Info) Description 02/16/2023 Telephone [place] [phone] Nisha Cunningham, AGNIESZKA Medical Care Coordination Social History Tobacco Use Types Packs/Day Years [...] encounter Miscellaneous Notes * Telephone Encounter - Nisha Cunningham RN - 02/16/2023 4:41 PM EDT ----- Message ----- From: Ashley Alfaro Sent: 02/14/2023 2:08 PM EDT To: [facility] Hem Onc Triage Prostate Subject: med question [facility] pharm [phone] option 2 Patient was advised to stop taking zytiga - dr nicci patel - said they did not say that. But that renu's office said to stop taking to increase in BP and heart palpitations. So they need to see if the count needs to be discharge or if they need to call pt to let him know they need to be dispensed. Msg to provider for clarification. ----- Message from Mike Louise MD sent at 02/14/2023 7:37 PM EDT ----- Regarding: RE: med question He follows with local oncologist, with us and Dr. Desai at [facility]. Then he decides what he wants to do. I held his geovanna/prednsione, and he felt better off it. So I guess geovanna/prednisone are discontinued, unless he has changed his mind. His geovanna was ordered by [facility], I finished the notes from 01/22/23. Call placed to [facility] and line busy. Unable to leave message. Call placed to [facility] and spoke with Cynthia, Prescription coordinator. Cynthia will follow up with patient and [facility] for more information. documented in this encounter Plan of Treatment Upcoming Encounters Date Type Department Care Team (Late st Contact Info) Description 12/15/2024 11:30 AM EDT Office [place] [address] Charline Ziegler MD [facility] [place] [address] documented as of this encounter Visit Diagnoses Not on filedocumented in this encounter Care Teams Police Patrol Lieutenant Relationship Specialty Start Date End Date Reji Adams MD [facility] [place] [address] PCP - General General Internal Medicine 07/13/15 documented as of this encounter
--- OUTSIDE RECORDS SUMMARY | 2024-07-09 11:06 | XMS_ITS | Encounter Summary ---
Author Organization [place] [address] Care Team Providers Care Powder Cutting Operator Name Role Phone Reji Adams MD Primary Care Provider [phone] Encounter Details Date Type Department Care Team (Late st Contact Info) Description 01/29/2023 Transcribe [place] [phone] Javid Almanza II, MD [address] [place] [address] Malignant neoplasm of prostate Social History Tobacco [...] 11:30 AM EDT Office [place] [address] Charline Ziegler MD [facility] [place] [address] documented as of this encounter Results * PSA Screen (01/28/2024 11:14 AM EDT) PSA Screen <0.01 0.00 - 4.00 ng/mL [facility] Comment: PLEASE NOTE: The [...] Javid Almanza II, MD CHEMISTRY ORDER DALILA [facility] [place] [address] documented in this encounter Visit Diagnoses Diagnosis Malignant neoplasm of prostate documented in this encounter Care Teams Powder Cutting Operator Relationship Specialty Start Date End Date Reji Adams MD [facility] GENER[facility] [place] [address] PCP - General General Internal Medicine 07/13/15 documented as of this encounter
--- OUTSIDE RECORDS SUMMARY | 2024-07-09 11:06 | XMS_ITS | Encounter Summary ---
Author Organization [facility] Address [facility] [place] [address] Care Team Providers Care College Professor Name Role Phone Reji Adams MD Primary Care Provider [phone] Reason for Visit * Reason Onset Date Comments Medication Refill 01/13/2023 Encounter Details Date Type Department Care Team (Late st Contact Info) Description 01/13/2023 Refill Internal Medicine at [address] [address] Reji Adams MD [facility] GENER[facility] [place] [address] Anxiety Social History Tobacco Use Types Packs/Day [...] 11:30 AM EDT Office [place] [address] Charline Ziegler MD [facility] [place] [address] documented as of this encounter Visit Diagnoses Diagnosis Anxiety Anxiety state, unspecified documented in this encounter Care Teams College Professor Relationship Specialty Start Date End Date Reji Adams MD [facility] [place] [address] PCP - General General Internal Medicine 07/13/15 documented as of this encounter
--- OUTSIDE RECORDS SUMMARY | 2024-07-09 11:06 | XMS_ITS | Encounter Summary ---
Author Organization [facility] [place] [address] Care Team Providers Care Supervisor Hot Strip Mill Name Role Phone Reji Adams MD Primary Care Provider [phone] Encounter Details Date Type Department Care Team (Latest Contact Info) Description 12/11/2022 Travel Social History Tobacco Use Types Packs/Day [...] 11:30 AM EDT Office Visit [place] [address] Charline Ziegler MD [facility] [place] [address] documented as of this encounter Visit Diagnoses Not on filedocumented in this encounter Care Teams Supervisor Hot Strip Mill Relationship Specialty Start Date End Date Reji Adams MD [facility] GENER[place] [address] PCP - General General Internal Medicine 07/13/15 documented as of this encounter
--- OUTSIDE RECORDS SUMMARY | 2024-07-09 11:06 | XMS_ITS | Encounter Summary ---
Author Organization [facility] Address [facility] [place] [address] Care Team Providers Care Spark Plug Tester Name Role Phone Reji Adams MD Primary Care Provider [phone] Reason for Visit * Reason Onset Date Comments Medication Refill 02/09/2023 Encounter Details Date Type Department Care Team (Late st Contact Info) Description 02/09/2023 Refill Internal Medicine at [address] [address] Reji Adams MD [facility] [place] [address] Anxiety Social History Tobacco Use Types Packs/Day [...] Patient declined Housing Stability Vital Sign Answer Adnny e Recorded In the last 12 months, [...] 11:30 AM EDT Office [place] [address] Charline Ziegler MD [facility] [place] [address] documented as of this encounter Visit Diagnoses Diagnosis Anxiety Anxiety state, unspecified documented in this encounter Care Teams Spark Plug Tester Relationship Specialty Start Date End Date Reji Adams MD [facility] [place] [address] PCP - General General Internal Medicine 07/13/15 documented as of this encounter
--- OUTSIDE RECORDS SUMMARY | 2024-07-09 11:06 | XMS_ITS | Encounter Summary ---
Author Organization [facility] Address [facility] [place] [address] Care Team Providers Care Pm Head Cook Name Role Phone Reji Adams MD Primary Care Provider [phone] Reason for Visit * Reason Onset Date Comments Medication Refill 01/10/2023 Encounter Details Date Type Department Care Team (Late st Contact Info) Description 01/10/2023 Refill Internal Medicine at [address] [address] Reji Adams MD [facility] GENERAL [place] [address] Anxiety Social History Tobacco Use Types Packs/Day [...] 11:30 AM EDT Office [place] [address] Charline Ziegler MD [facility] [place] [address] documented as of this encounter Visit Diagnoses Diagnosis Anxiety Anxiety state, unspecified documented in this encounter Care Teams Pm Head Cook Relationship Specialty Start Date End Date Reji Adams MD [facility] GENER[place] [address] PCP - General General Internal Medicine 07/13/15 documented as of this encounter
--- OUTSIDE RECORDS SUMMARY | 2024-07-09 11:06 | XMS_ITS | Encounter Summary ---
Author Organization [facility] [place] [address] Care Team Providers Care It Training Specialist Name Role Phone Reji Adams MD Primary Care Provider [phone] Encounter Details Date Type Department Care Team (Latest Contact Info) Description 12/09/2022 Travel Social History Tobacco Use Types Packs/Day [...] 11:30 AM EDT Office [place] [address] Charline Ziegler MD [facility] [place] [address] documented as of this encounter Visit Diagnoses Not on filedocumented in this encounter Care Teams It Training Specialist Relationship Specialty Start Date End Date Reji Adams MD [facility] GENER[facility] [place] [address] PCP - General General Internal Medicine 07/13/15 documented as of this encounter
--- OUTSIDE RECORDS SUMMARY | 2024-07-09 11:06 | XMS_ITS | Encounter Summary ---
Author Organization [facility] [place] [address] Care Team Providers Care Education Instructor Name Role Phone Reji Adams MD Primary Care Provider [phone] Encounter Details Date Type Department Care Team (Late st Contact Info) Description 11/12/2022 Interpretation Only [address] [id number] Say De Los Santos MD [address] [place] [address] Social History Tobacco Use Types Packs/Day Years Used Date Smoking Tobacco: Never Assessed Overall Financial Resource Strain (CARDIA) Answe r [...] 11:30 AM EDT Office Visit [place] [address] Charline Ziegler MD [facility] [place] [address] documented as of this encounter Procedures Procedure Name Priority Date/Time Associated Diagnosis Comments XR CHEST ONE VIEW STAT 11/12/2022 9:5 0 PM EDT documented in this encounter Results * XR Chest One View (11/12/2022 9:50 PM EDT) PT CLASS E RAD ADMITDTTM RAD PT RAD INFO [id number]^F INDLEY^ANGEL NORRIS CHAD RAD EXAM DESC XCXR1^XR CHEST 1 VIEW^RIS RAD Anatomical Region Laterality Modality Chest N/A Radiographic Chelsea ging Impressions 11/12/2022 10:05 PM EDT No acute finding. Thank you for letting us participate in the care of this patient. ??If you are a health care provider and have any questions regarding this report, please contact the number below. ??For patients who have questions please contact the health field care manager that requested your imaging first. ? Electronically signed by: Tre Cr MD, [facility] ([phone]), at 11/12/2022 10:05 PM Narrative 11/12/2022 10:05 PM EDT EXAMINATION: XR CHEST 1 VIEW CLINICAL HISTORY: sudden onset weakness TECHNIQUE: Single view of the chest COMPARISON: None FINDINGS: The lungs are clear. The edi and cardiomediastinal silhouette are normal. No pleural collection or pneumothorax. Review of bone windows is unremarkable. Procedure Note Tre Cr MD - 11/12/2022 EXAMINATION: XR CHEST 1 VIEW CLINICAL HISTORY: sudden onset weakness TECHNIQUE: Single view of the chest COMPARISON: None FINDINGS: The lungs are clear. The edi and cardiomediastinal silhouette are normal.No pleural collection or pneumothorax. Review of bone windows is unremarkable. IMPRESSION No acute finding. Thank you for letting us participate in the care of this patient. If youare a health care provider and have any questions regarding this report,please contact the number below. For patients who have questions please contactthe health field care manager that requested your imaging first. Say De Los Santos MD IMG DX ORDERABL ES documented in this encounter Visit Diagnoses Not on filedocumented in this encounter Care Teams Education Instructor Relationship Specialty Start Date End Date Reji Adams MD [facility] [place] [address] PCP - General General Internal Medicine 07/13/15 documented as of this encounter
--- OUTSIDE RECORDS SUMMARY | 2024-07-09 11:06 | XMS_ITS | Encounter Summary ---
Author Organization [facility] [place] [address] Care Team Providers Care Driver License Reviewing Officer Name Role Phone Reji Adams MD Primary Care Provider [phone] Encounter Details Date Type Department Care Team (Latest Contact Info) Description 11/20/2022 Travel Social History Tobacco Use Types Packs/Day [...] EDT Office [place] [address] Charline Ziegler MD [facility] [place] [place] [address] documented as of this encounter Visit Diagnoses Not on filedocumented in this encounter Care Teams Driver License Reviewing Officer Relationship Specialty Start Date End Date Reji Adams MD [facility] [place] [address] PCP - General General Internal Medicine 07/13/15 documented as of this encounter
--- OUTSIDE RECORDS SUMMARY | 2024-07-09 11:06 | XMS_ITS | Encounter Summary ---
Author Organization [facility] [place] [address] Care Team Providers Care Tablet Making Machine Operator Helper Name Role Phone Reji Adams MD Primary Care Provider [phone] Encounter Details Date Type Department Care Team (Latest Contact Info) Description 01/10/2023 Travel Social History Tobacco Use Types Packs/Day [...] 11:30 AM EDT Office [place] [address] Charline Ziegler MD [facility] [place] [address] documented as of this encounter Visit Diagnoses Not on filedocumented in this encounter Care Teams Tablet Making Machine Operator Helper Relationship Specialty Start Date End Date Reji Adams MD [facility] GENERAL [place] [address] PCP - General General Internal Medicine 07/13/15 documented as of this encounter
--- OUTSIDE RECORDS SUMMARY | 2024-07-09 11:06 | XMS_ITS | Encounter Summary ---
Author Organization [facility] Address [facility] [place] [address] Care Team Providers Care Vessel Scrapper Name Role Phone Reji Adams MD Primary Care Provider [phone] Encounter Details Date Type Department Care Team (Late st Contact Info) Description 12/16/2022 7:30 AM EDT Laboratory Appointment Lab [address] [place] [phone] Social History Tobacco Use Types Packs/Day Years [...] 11:30 AM EDT Office [place] [address] Charline Ziegler MD [facility] [place] [address] documented as of this encounter Procedures Procedure Name Priority Date/Time Associated Diagnosis Comments ACTH Routine 12/16/2022 7:49 AM EDT CORTISOL Routine 12/16/2022 7:49 AM EDT documented in this encounter Results * ACTH (12/16/2022 7:49 AM EDT) ACTH (NOVEMBER) 32 pg/mL [facility] Comment: REFERENCE VALUE 7.2-63 (a.m. collection) Test Performed by: [facility] - [address] [address] Manager Solution: Rigo Ahmadi M.D. Ph.D.; CLIA# [id number] Blood Venous Draw / Unknown 12/16/2022 7:49 AM EDT 12/16/2022 8:39 AM EDT Narrative Resulting Agency Comment Spec In Lab Sary Desai MD LAB SEND OUT ORDERAB LES [facility] [address] * Cortisol (12/16/2022 7:49 AM EDT) Cortisol 8.6 mcg/dL [facility] Comment: Reference ranges: ??AM (6-10am): ??4.8-19.5 mcg/dL ??PM (4-8pm) : ??2.5-11.9 mcg/dL Blood Venous Draw / Unknown 12/16/2022 7:49 AM EDT 12/16/2022 8:03 AM EDT Narrative Resulting Agency Comment Spec In Lab Sary Desai MD CHEMISTRY ORDERABLES [facility] [place] [address] documented in this encounter Visit Diagnoses Not on filedocumented in this encounter Care Teams Vessel Scrapper Relationship Specialty Start Date End Date Reji Adams MD [facility] [place] [address] PCP - General General Internal Medicine 07/13/15 documented as of this encounter
--- OUTSIDE RECORDS SUMMARY | 2024-07-09 11:06 | XMS_ITS | Encounter Summary ---
Author Organization [facility] Address [facility] [place] [address] Care Team Providers Care Forest Landscape Ecology Professor Name Role Phone Reji Admas MD Primary Care Provider [phone] Reason for Visit * Reason Onset Date Comments Medication Refill 12/24/2022 Encounter Details Date Type Department Care Team (Late st Contact Info) Description 12/24/2022 Refill Internal Medicine at [address] [address] Reji Adams MD [facility] [place] [address] Anxiety Social History Tobacco Use Types Packs/Day [...] 11:30 AM EDT Office [place] [address] Charline Ziegler MD [facility] [place] [address] documented as of this encounter Visit Diagnoses Diagnosis Anxiety Anxiety state, unspecified documented in this encounter Care Teams Forest Landscape Ecology Professor Relationship Specialty Start Date End Date Reji Adams MD [facility] [place] [address] PCP - General General Internal Medicine 07/13/15 documented as of this encounter
--- OUTSIDE RECORDS SUMMARY | 2024-07-09 11:06 | XMS_ITS | Encounter Summary ---
[place] [address] Care Team Providers Care Plater Hot Dip Name Role Phone Reji Adams MD Primary Care Provider [phone] Encounter Details Date Type Department Care Team (Latest Contact Info) Description 11/20/2022 12:45 PM EDT Laboratory Appointment Lab [address] [place] [id number] Pure hypercholesterolemi a; Hyperparathyroidism ; Prostate cancer metastatic to intrapelvic lymph node [...] 11:30 AM EDT Office [place] [address] Charline Ziegler MD [facility] [place] [address] documented as of this encounter Procedures Procedure Name Priority Date/Time Associated Diagnosis Comments HEMOGRAM Routine 11/20/2022 12:55 PM EDT Prostate cancer metastatic to intrapelvic lymph node DIFFERENTIAL, AUTOMATED Routine 11/20/2022 12:55 PM EDT Prostate cancer metastatic to intrapelvic lymph node HC CBC,PLT & AUTO DIFF Routine 11/20/2022 12:55 PM EDT Prostate cancer metastatic to intrapelvic lymph node HC TESTOSTERONE, SERUM Routine 11/20/2022 12:55 PM EDT Prostate cancer metastatic to intrapelvic lymph node HC PROSTATE SPECIFIC ANTIGEN Routine 11/20/2022 12:55 PM EDT Prostate cancer metastatic to intrapelvic lymph node HC VENIPUNCTURE Routine 11/20/2022 12:55 PM EDT Pure hypercholesterolemia COMPREHENSIVE METABOLIC PANEL Routine 11/20/2022 12:55 PM EDT Prostate cancer metastatic to intrapelvic lymph node documented in this encounter Results * Differential, Automated (11/20/2022 12:55 PM EDT) Neutrophil % 68.5 % [facility] Neutrophil Absolute 3.57 1.70 - 6.10 x10(3)/[facility] Lymph % 21.9 % [facility] Lymphocytes Abs 1.1 0.9 - 3.2 x10(3)/[facility] Monocyte % 7.3 % [facility] Monocyte Abs 0.4 0.3 - 0.9 x10(3)/[facility] Eos % 1.5 % [facility] Eosinophils Abs 0.1 0.0 - 0.4 x10(3)/[facility] Basophil % 0.6 % [facility] Baso Absolute 0.0 0.0 - 0.1 x10(3)/[facility] Immature Gran % 0.20 % [facility] Comment: Immature granulocytes(IG's)percentage and absolute count will include metamyelocytes, myelocytes, and promyelocytes. Blood smears from CBCs yielding IG's will be scanned manually for concordance. If this scan disagrees with the automated IG or if promyelocytes are noted, a manual differential will be performed. Immature Gran Absolute 0.01 0.00 - 0.04 x10(3)/[facility] Blood 11/20/2022 12:5 5 PM EDT 11/20/2022 1:15 PM EDT Narrative Resulting Agency Comment Spec In Lab Mike Louise MD HEMATOLOGY ORDERABLE S [facility] [place] [address] * (ABNORMAL) Hemogram (11/20/2022 12:55 PM EDT) Pathologist [facility] White Blood Cell 5.2 4.0 - 9.5 x10(3)/mc L [facility] Red Blood Cell 4.38(L) 4.58 - 5.54 x10(6)/mc L [facility] Hemoglobin 13.6(L) 13.7 - 16.5 g/dL [facility] Hematocrit 40.3(L) 40.5 - 48.5 % [facility] Mean Cell Volume 92.0 82.9 - 93.1 fL [facility] Mean Cell Hemoglobin 31.1 27.5 - 32.1 pg [facility] Mean Cell Hemoglobin Concentration 33.7 32.0 - 35.7 g/dL [facility] Platelet 163 145 - 357 x10(3)/mc L [facility] RDW Standard Deviation 46.4(H) 36.0 - 45.0 fL [facility] RDW coefficient of variation 13.5 11.4 - 13.8 % [facility] Mean Platelet Volume 9.5 7.6 - 12.9 fL [facility] NRBC% auto 0.0 % [facility] NRBC Absolute 0.000 0.000 - 0.000 x10(3)/mc L [facility] Blood 11/20/2022 12:5 5 PM EDT 11/20/2022 1:15 PM EDT Narrative Resulting Agency Comment Spec In Lab Mike Louise MD HEMATOLOGY ORDERABLE S Performing Organization Address City/[facility] Co de Phone Number [facility] [place] [address] * (ABNORMAL) Testosterone, total (11/20/2022 12:55 PM EDT) Testosterone <0.03(L) 1.93 - 7.40 ng/mL [facility] Comment: Pediatric Reference Ranges: ? [...] Stated reference ranges derived from review of [employer]anna Testosterone II 03/2016, v6.0 Blood 11/20/2022 12:5 5 PM EDT 11/20/2022 1:16 PM EDT Narrative Resulting Agency Comment Spec In Lab Mike Louise MD CHEMISTRY ORDERABLES Performing Organization Address City/State/[facility] Co de Phone Number [facility] [place] [address] * Comprehensive metabolic panel (non-fasting) (11/20/2022 12:55 PM EDT) Glucose 108 65 - 199 mg/dL [facility] Comment:Diabetes: >=200 mg/d L plus symptoms Blood Urea Nitrogen 17 10 - 20 mg/dL [facility] Creatinine 0.88 0.80 - 1.50 mg/dL [facility] Sodium 140 135 - 145 mmol/L [facility] Potassium 4.4 3.5 - 5.0 mmol/L [facility] Comment: Please note: ??Patients with WBC >100,000 may have falsely elevated Potassium levels. ??For accurate Potassium quantification in these patients send serum separator tube (gold top) for subsequent determinations. ??Contact the Clinical Chemistry Laboratory if there are any questions. Chloride 105 98 - 107 mmol/L [facility] Carbon Dioxide 27 22 - 31 mmol/L [facility] Anion Gap 8 5 - 15 mmol/L [facility] Calcium 9.5 8.5 - 10.5 mg/dL [facility] Protein, Total 6.6 6.1 - 8.0 g/dL [facility] Albumin 4.3 3.2 - 5.2 g/dL [facility] Aspartate Aminotransferase 22 0 - 39 unit/L [facility] Alanine Aminotransferase 18 0 - 55 unit/L [facility] Alkaline Phosphatase 77 40 - 130 unit/L [facility] Bilirubin, Total 0.7 0.2 - 1.3 mg/dL [facility] Est Glomerular Filtration Rate 89 >=60 mL/min/1. 73 m?? [facility] Comment: This patient's estimated GFR [...] and symptoms in addition to eGFR. Blood 11/20/2022 12:5 5 PM EDT 11/20/2022 1:16 PM EDT Narrative Resulting Agency Comment Spec In Lab Mike Louise MD CHEMISTRY ORDERABLES Performing Organization Address City/State/[facility] Co de Phone Number [facility] [place] [address] * PSA (Ultrasensitive) (11/20/2022 12:55 PM EDT) Prostate Specific Antigen (Ultrasensitive) <0.01 0.00 - 4.00 ng/mL [facility] Comment: PLEASE NOTE: The above reference interval is intended for healthy males with an intact prostate. Values within this reference interval may indicate recurrence in men who have undergone radical prostatectomy. This result was generated using a [employer] immunoassay. ??Results obtained from other methods or manufacturers cannot be used interchangeably with this method. Blood 11/20/2022 12:5 5 PM EDT 11/20/2022 1:16 PM EDT Narrative Resulting Agency Comment Spec In Lab Mike Louise MD CHEMISTRY ORDERABLES [facility] [place] [address] * Lipid Panel (Reflex Direct LDL) (11/20/2022 12:55 PM EDT) Cholesterol, Total 170 mg/dL [facility] Comment: Lower Risk: <200 mg/dL Average Risk: 200-239 mg/dL Higher Risk: >il=314 mg/dL Triglyceride 80 mg/dL [facility] Comment: Average Risk/Lower Risk: <150 mg/dL Borderline High Risk: 150-199 mg/dL High Risk: 200-499 mg/dL Very High Risk: >rt=028 mg/dL HDL Cholesterol 84 mg/dL [facility] Comment: Males: ?? Higher Risk: <40 mg/dL Females: ?? Higher Risk: <50 mg/dL LDL Cholesterol 70 mg/dL [facility] Comment: Lowest Risk: <100 mg/dL Lower Risk: 100-129 mg/dL Borderline High Risk: 130-159 mg/dL High Risk: 160-189 mg/dL Very High Risk: >sd=495 mg/dL Cholesterol/HDL Ratio 2.0 ratio [facility] Lipid Interpretation See Note [facility] Comment: Lipid management should be guided by a patient? s ASCVD risk, goals and preferences. ACC/AHA Guidelines recommend high intensity statin if clinical ASCVD or LDL greater than or equal to 190 mg/dL. http://[email or web address]/WQB-CHU-Mnofinyha Adults aged 40-75 with LDL 70-189 mg/dL should have their 10 year ASCVD risk estimated with the ACC/AHA ASCVD risk pharmacy technologist http://tools.acc.org/DLUZO-Indf-Egfecvrnu/ Statin should be discussed if risk greater than or equal to 7.5% in non-diabetics. With diabetes, moderate intensity statin is recommended if risk less than 7.5%, high intensity if risk greater than or equal to 7.5%. Annual lipid monitoring on statins is not necessary. Evaluate secondary causes of Triglycerides greater than 500 mg/dL or LDL greater than 190 mg/dL: See table 6 of ACC/AHA Guideline. Lifestyle modification is a critical component of ASCVD risk reduction. Blood 11/20/2022 12:5 5 PM EDT 11/20/2022 1:16 PM EDT Narrative Resulting Agency Comment Spec In Lab Reji Adams MD CHEMISTRY ORDERABLES Performing Organization Address City/State/[facility] Co de Phone Number [facility] [place] [address] documented in this encounter Visit Diagnoses Diagnosis Pure hypercholesterolemia Hyperparathyroidism Hyperparathyroidism, unspecified Prostate cancer metastatic to intrapelvic lymph node documented in this encounter Care Teams Plater Hot Dip Relationship Specialty Start Date End Date Reji Adams MD [facility] [place] [address] PCP - General General Internal Medicine 07/13/15 documented as of this encounter
--- OUTSIDE RECORDS SUMMARY | 2024-07-09 11:06 | XMS_ITS | Encounter Summary ---
Author Organization [facility] [place] [address] Care Team Providers Care Collar Baster Name Role Phone Reji Newberry MD Primary Care Provider [phone] Encounter Details Date Type Department Care Team (Late st Contact Info) Description 01/20/2023 Telephone Internal Medicine at [address] [address] Dafne Hickey, RN Social History [...] Telephone Encounter - Dafne Hickey RN - 01/20/2023 1:15 PM EDT Copied from [facility] #[id number]. Topic: Triage - Triage >> Jan 20, 2023 1:05 PM Pia Thomas wrote: Symptom: intermittent shortness of breath and erratic heart beat PCP: REJI NEWBERRY Additional Comments: Patient called to state that he went to [facility] care last night, 01/19/23, to address intermittent shortness of breath and an erratic heart beat that has been occurring for about one week. Patient stated he had a CAT scan for blood clots that came back negative. Patient was not experiencing shortness of breath or erratic heartbeat at the time of the call. Please call to advise, thank you. documented in this encounter Plan of Treatment Upcoming Encounters Date Type Department Care Team (Late st Contact Info) Description 12/15/2024 11:30 AM EDT Office [place] [address] Charline Ziegler MD [facility] [place] [address] documented as of this encounter Visit Diagnoses Not on filedocumented in this encounter Care Teams Collar Baster Relationship Specialty Start Date End Date Reji Newberry MD [facility] [place] [address] PCP - General General Internal Medicine 07/13/15 documented as of this encounter
--- OUTSIDE RECORDS SUMMARY | 2024-07-09 11:06 | XMS_ITS | Encounter Summary ---
Author Organization [place] [address] Care Team Providers Care Planting Material Carrier Name Role Phone Reji Adams MD Primary Care Provider [phone] Encounter Details Date Type Department Care Team (Latest Contact Info) Description 12/02/2022 Travel Social History Tobacco Use Types Packs/Day [...] 11:30 AM EDT Office [place] [address] Charline Ziegler MD [facility] [place] [address] documented as of this encounter Visit Diagnoses Not on filedocumented in this encounter Care Teams Planting Material Carrier Relationship Specialty Start Date End Date Reji Adams MD [facility] [place] [address] PCP - General General Internal Medicine 07/13/15 documented as of this encounter
--- OUTSIDE RECORDS SUMMARY | 2024-07-09 11:06 | XMS_ITS | Encounter Summary ---
Author Organization [facility] [place] [address] Care Team Providers Care Marketing Area Manager Name Role Phone Reji Adams MD Primary Care Provider [phone] Reason for Referral * Diagnostic Test (Routine) - Closed Specialty Diagnoses / Procedures [facility] To Contact Radiology Diagnoses Prostate cancer metastatic to intrapelvic lymph node Procedures NM PET CT PSMA Prostate (Illuccix) Mike Louise MD [facility] [place] [address] [place] [address] Referral ID Status Reason Start Date Expiration Date V isits Requested Visits Authorized [id number] Closed Specialty Service Requested 11/20/2022 05/22/2024 1 2 Reason for Visit * Reason Comments Follow-up Encounter Details Date Type Department Care Team (Late st Contact Info) Description 11/20/2022 1:30 PM EDT Office Visit Hematology [place] [phone] Mike Louise MD [facility] [address] [place] [address] Macario Urrutia PA [facility] [place] [address] Prostate cancer metastatic to intrapelvic lymph node (Primary Dx); Androgen deprivation therapy Social History Tobacco Use Types Packs/Day Years [...] Sign Reading Time Taken Comments Blood Pressure 115/83 11/20/2022 1:04 PM EDT Pulse 69 11/20/2022 1:04 PM EDT Temperature 36.1 ??C (97 ??F) 11/20/2022 1:0 4 PM EDT Respiratory Rate 20 11/20/2022 1:04 PM EDT Oxygen Saturation 100% 11/20/2022 1:0 4 PM EDT Inhaled Oxygen Concentration - - Weight 86.5 kg (190 lb 12.8 oz) 023 1:04 PM EDT with shoes Height 181.6 cm (5' 11.5) 11/20/2022 1 :04 PM EDT with shoes Body Mass Index 26.24 11/20/2022 1:04 PM EDT documented in this encounter Progress Notes * Mike Louise MD - 11/20/2022 1:30 PM EDT Images from the original note were not included. Diagnosis: pT2, pN0, cM0, PSA: 7, Grade Group: 5, [place]: 4, +: 5) CC: I HPI:Ken Mckeon is 77 y.o.M Coming for second opinion on management of prostate cancer. He was initially diagnosed with prostate cancer in 2018. Ken underwent radical prostatectomy in April 2019. His PSA has been slowly rising and reached level of biochemical recurrence in April 2021. Hefollowed with radiation oncologist Dr. White. Went for second opinion to [facility]. Mr. Mckeon had a PSMA PET scan at [facility] 07/02/21 and evaluation in radiation oncology and medical oncology by Dr. Marin and Dr. Desai, respectively at [facility].PET showed possible L2 and pelvic node recurrence ofprostate cancer s/p prostatectomy. A recommendation was made for lumbar spine MRI and the patient prefers to have it at this hospital,[facility]. I have requested the MRI L spine here. Dr. Desai and Saeed had recommended abiraterone prednisone with potential radiation to pelvic nodes and L2 disease if that is confirmed to be oligometastatic prostate cancer He has an appointment with our radiation oncologist Dr. Davis next week. Oncological history: Oncology History Prostate cancer 07/19/2006 Initial Diagnosis ??? July [...] is no lymphadenopathy or bony metastatic disease. ??? February 03, 2019: PSA 7.20 02/08/2019 Biopsy February 08, 2019: Prostate biopsy showed a 45 mL gland. Pathology [facility] at [facility] showed [place] 4+5 involving 20 to 50% of 3 cores from the targeted lesion. There was an intraductal carcinoma component present. The remaining tissue was negative for malignancy. 02/08/2019 - Cancer Staged Staging form: Prostate, AJCC 8th Edition - Clinical stage from 02/08/2019: Stage IIIC (cT1c, cN0, cM0, PSA: 7.3, Grade Group: 5, 02/08/19, [place]: 4, +: 5) - Signed by Leonid Tipton MD, MPH on 06/06/2021 02/22/2019 - Cancer Staged February 22, 2019: Nuclear medicine bone scan at [facility] showed no evidence of bony metastatic disease 05/18/2019 Surgery May 18, 2019: Radical prostatectomy with pathology reviewed at [facility] showed [place] 4+5 involving 10% of the prostate. There is no lymphovascular invasion identified though there was perineural invasion. The disease was confined to the prostate without extracapsular or seminal vesicle invasion. 8 lymph nodes were examined all which were negative. The margins were clear. Decipherscore 0.90 06/23/2019 - Cancer Staged ??? June 23, 2019: PSA 0.02 ??? [...] 0.172 ??? May 07, 2021: PSA 0.253 06/06/2021 - Cancer Staged - Pathologic: Stage IIIC (pT2, pN0, cM0, PSA: 7, Grade Group: 5, Sinan: 4, +: 5) , high risk for recurrence 07/02/2021 Cancer Staged ?? PET CT: 1. [...] 09/11/2021 - 10/24/2021 Radiation Therapy ?? -08/10/21: started Lupron -Started radiation therapy. ?? 09/12/2021 - started ??Abiraterone and prednisone. Interval history:Ken Mckeon is in clinic for follow-up appointment prostate cancer. He receiveddefinitive radiation therapy along leuprolide in August - September of 2021. He started abiraterone 1000 mg and prednisone 5 mg a day on September 12. About 2-3 weeks ago he noted pounding heart, shortness of breath, more fatigue and increase in his blood pressure. He denies any new pain. PMH: sacroplasty and L5 vertebroplasty back in April 2022 Osteoarthritis, anxiety, history of spinal cord injury Past Medical History: Diagnosis Date ??? BPH (benign prostatic hyperplasia) ??? Neck pain 08/24/2012 ??? OA (osteoarthritis) of knee right ??? Spinal cord injury at 2016 Social History: Non-smoker, drinks up to 3 beers a week. Retired Social History Socioeconomic History ??? Marital status: Spouse name: Not on file ??? Number of children: 3 ??? Years of education: Not on file ??? Highest education level: Not on file Occupational History ??? Occupation: retired Tobacco Use ??? Smoking status: Never ??? Smokeless tobacco: Current Types: Chew ??? Tobacco comments: 3 cans/ week. Vaping Use ??? Vaping Use: Never used Substance and Sexual Activity ??? Alcohol use: Not Currently ??? Drug use: No ??? Sexual activity: Yes Partners: Female Other Topics Concern ??? Do You live alone? Not Asked ??? Tobacco in Home Not Asked Social History Narrative ??? Not on file Social Determinants of Health Financial Resource Strain: Not on file Food Insecurity: Not on file Transportation Needs: Not on file Physical Activity: Not on file Housing Stability: Not on file Family History: Mother had bone cancer Family History Problem Relation Age of Onset ??? Cancer Mother bone ??? Diabetes Father ??? Cancer Father testicular Allergies: Allergies Allergen Reactions ??? Penicillins Anaphylaxis Tongue swelling ??? Betamethasone hiccups after injection ??? Dexamethasone Hiccups after injection ??? Triamcinolone Acetonide Hiccups Your Medications Accurate as of November 20, 2022 1:18 PM. If you have any questions, ask your nurse or doctor. Continued medications, unchanged Dose Details abiraterone 250 mg tablet Commonly known as: Zytiga Take 1,000 mg by mouth daily. 1,000 mg Refills: 0 acetaminophen 650 mg ER tablet Commonly known as: Tylenol Take 650 mg by mouth every 8 hours as needed for Pain. Do not exceed 6 tabs in 24 hours 650 mg Refills: 0 ALPRAZolam 0.5 mg tablet Commonly known as: Xanax Take 0.5 tablets by mouth 3 times daily as needed for Anxiety. 0.25 mg Quantity: 20 tablet Refills: 0 aspirin EC 81 mg EC (DR) tablet Take 81 mg by mouth daily. 81 mg Refills: 0 hydroCHLOROthiazide 12.5 mg capsule Commonly known as: Microzide Take 1 capsule by mouth daily. 12.5 mg Quantity: 90 capsule Refills: 3 leuprolide (3 month) Syringe Commonly known as: Eligard Inject 22.5 mg subcutaneously once. 22.5 mg Refills: 0 multivitamin Tablet Commonly known as: THERAGRAN Take 1 tablet by mouth daily. 1 tablet Refills: 0 polyethylene glycoL 17 gram/dose Powder Commonly known as: Miralax Take 17 g by mouth daily. 17 g Refills: 0 pravastatin 20 mg tablet Commonly known as: Pravachol Take 1 tablet by mouth daily. 20 mg Quantity: 90 tablet Refills: 3 predniSONE 5 mg tablet Commonly known as: Deltasone Take 5 mg by mouth daily. 5 mg Refills: 0 tadalafiL 5 mg tablet Commonly [...] deficits. Psych: Conversant, normal mood and affect. Pathology: 05/18/2019 Outside slide(s) labeled [id number], collection date 05/18/2019. A) Soft tissue, left neurovascular bundle, ?biopsy: ??- Benign soft tissue. B) Soft tissue, right neurovascular bundle, biopsy: ??- Benign soft tissue. C) Lymph node, left pelvice, excision: ??- Two lymph nodes, ??negative for malignancy. (0/2) D) Lymph node, right pelvic, excision: ??- Six lymph nodes, ??negative for malignancy. (0/6) E) Soft tissue, preprostatic, biopsy: ??- Benign adipose tissue. F) Prostate, apex, biopsy: ??- Benign fibromuscular soft tissue. G) Prostate, radical prostatectomy: ?? (See SYNOPTIC REPORT) SYNOPTIC Specimen ?Procedure: ??Radical prostatectomy Tumor ?Histologic Type: ??Acinar adenocarcinoma ?Histologic Grade ? Grade Group and Sinan Score: ??Grade group 5 (Sinan Score 4 + 5 = 9) ? Percentage of Pattern 4: ??45% ? Percentage of Pattern 5: ??35% ?Intraductal Carcinoma (IDC): ??Present ?Tumor Location: ??Predominantly right side ?Tumor Quantitation: ??Estimated percentage of prostate involved by tumor - 10% ?Extraprostatic Extension (EPE): ??Not identified ?Urinary Bladder Neck Invasion: ??Not identified ?Seminal Vesicle Invasion: ??Not identified ?Treatment Effect: ??No known presurgical therapy ?Lymphovascular Invasion: ??Not Identified ?Perineural Invasion: ??Present Margins ?Margins: ??Uninvolved by invasive carcinoma Lymph Nodes ?Number of Lymph Nodes Involved: ??0 ?Number of Lymph Nodes Examined: ??8 Pathologic Stage Classification (pTNM, AJCC 8th Edition) ?Primary Tumor (pT): ??pT2 ?Regional Lymph Nodes (pN): ??pN0 Labs: Recent Results (from the past 24 hour(s)) Lipid Panel (Reflex Direct LDL) Result Value Ref Range Chol, Total 170 mg/dL Triglycerides 80 mg/dL HDL 84 mg/dL LDL Cholesterol 70 mg/dL Chol/HDL Ratio 2.0 ratio Lipid Interpretation See Note PSA (Ultrasensitive) Result Value Ref Range PSA Total (Ultrasensitive) <0.01 0.00 - 4.00 ng/mL Comprehensive metabolic panel (non-fasting) Result Value Ref Range Glucose Lvl 108 65 - 199 mg/dL BUN 17 10 - 20 mg/dL Creatinine 0.88 0.80 - 1.50 mg/dL Sodium 140 135 - 145 mmol/L Potassium 4.4 3.5 - 5.0 mmol/L Chloride 105 98 - 107 mmol/L CO2 27 22 - 31 mmol/L Anion Gap 8 5 - 15 mmol/L Calcium 9.5 8.5 - 10.5 mg/dL Total Protein 6.6 6.1 - 8.0 g/dL Albumin 4.3 3.2 - 5.2 g/dL AST 22 0 - 39 unit/L ALT 18 0 - 55 unit/L Alk Phos 77 40 - 130 unit/L Total Bilirubin 0.7 0.2 - 1.3 mg/dL Estimated GFR 89 >=60 mL/min/1.73 m?? Hemogram Result Value Ref Range WBC 5.2 4.0 - 9.5 x10(3)/mcL RBC 4.38 (L) 4.58 - 5.54 x10(6)/mcL Hemoglobin 13.6 (L) 13.7 - 16.5 g/dL Hematocrit 40.3 (L) 40.5 - 48.5 % MCV 92.0 82.9 - 93.1 fL MCH 31.1 27.5 - 32.1 pg MCHC 33.7 32.0 - 35.7 g/dL Platelets 163 145 - 357 x10(3)/mcL RDWSD 46.4 (H) 36.0 - 45.0 fL RDWCV 13.5 11.4 - 13.8 % MPV 9.5 7.6 - 12.9 fL nRBC % Auto 0.0 % nRBC Abs Auto 0.000 0.000 - 0.000 x10(3)/mcL Differential, Automated Result Value Ref Range Neutrophils % 68.5 % Neutr Abs (ANC) 3.57 1.70 - 6.10 x10(3)/mcL Lymphocytes % 21.9 % Lymphocytes Abs 1.1 0.9 - 3.2 x10(3)/mcL Monocytes % 7.3 % Monocyte Abs 0.4 0.3 - 0.9 x10(3)/mcL Eosinophils % 1.5 % Eosinophils Abs 0.1 0.0 - 0.4 x10(3)/mcL Basophils % 0.6 % Basophils Abs 0.0 0.0 - 0.1 x10(3)/mcL Immature Gran % 0.20 % Mahsa Gran Abs 0.01 0.00 - 0.04 x10(3)/mcL PSA testosteron 11/20/22 <0.01 10/14/22 0.064 10/14/22 PSA 0.064 Recent PSA history: 06/23/2019 0.02 10/06/2019 <0.01 01/03/2020 <0.01 04/20/2020 0.02 08/29/2020 0.05 11/03/2020 0.09 01/08/2021 0.14 02/07/2021 0.172 05/07/2021 0.253 Imagin07/12/2021 lumbar spine MRI: IMPRESSION No evidence of osseous metastasis in the lumbar spine. Mild lumbar spondylosis as above, similar to prior exam. ?? PSMA-PET, 06/29/21 ([facility] reading): 1. Mildly avid bilateral subcentimeter [...] osseous metastatic disease identified in the spine. ?? 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 Mr. Mckeon was initially diagnosed with high risk prostate cancer in 2019. He underwent radical prostatectomy. PSA has been slowly rising and reached level of biochemical recurrence. He followed with Dr. White. He obtained second opinion Dr. Leonid Tipton and Dr. Desai, at [facility] [place]. Had a restaging PSM a PET scan [...] he decides to proceed with treatment at [facility]. I am happy to see him on as-needed basis. 11/20/22 Mr. Mckeon followed with urologist for Eligard injection and with medical oncologist at [facility] but his oncologist left. He would like [...] known cardiac toxicity. He has appointment with job placement officer in November. We discussed holding off abiraterone [...] and PSMA PET scan He will see job placement officer in November Plan: 1. Hold abiraterone and prednisone 2. Continue leuprolide 22.5 mg every 3 months locally 3. Next visit in 2 months with CBC, CMP, PSA, testosterone and PSMA PET scan This encounter was primarily counseling-based (>50 % of total time) with total time of 80 minutes, of which 60 minutes was spent with the patient/family discussing: [...] 11:30 AM EDT Office [place] [address] Charline Ziegler MD [facility] [place] [address] documented as of this encounter Results * NM PET CT PSMA Prostate (Illuccix) (04/09/2023 11:33 AM EDT) Anatomical Region Laterality Modality Positron Emissio n Tomography (PET) Impressions 04/09/2023 3:44 PM EDT No evidence of active local or metastatic prostate malignancy. Thank you for referring this patient to [facility]. I have [...] who have questions please contact the health intensive care unit registered nurse that requested your imaging first. ? Electronically signed by: Sarah Echeverria MD, [facility] ??([phone]), at 04/09/2023 3:44 PM Narrative 04/09/2023 3:44 [...] you for referring this patient to [facility]. I have personally reviewed the image(s) and the resident's interpretationand agree with the findings, Sarah Echeverria MD at 04/09/2023 3:44 PM Thank you for letting us participate in the care of this patient. If youare a health care provider and have any questions regarding this report,please contact the number below. For patients who have questions please contactthe health intensive care unit registered nurse that requested your imaging first. Electronically signed by: Sarah Echeverria MD, [facility]([phone]), at 04/09/2023 3:44 PM Mike Louise MD IMG PET ORDERABLES documented in this encounter Visit Diagnoses Diagnosis Prostate cancer metastatic to intrapelvic lymph node- Primary Androgen deprivation therapy Encounter for therapeutic drug monitoring Prostate cancer metastatic to intrapelvic lymph node documented in this encounter Care Teams Marketing Area Manager Relationship Specialty Start Date End Date Reji Adams MD [facility] [place] [address] PCP - General General Internal Medicine 07/13/15 documented as of this encounter
--- OUTSIDE RECORDS SUMMARY | 2024-07-09 11:06 | XMS_ITS | Encounter Summary ---
Author Organization [place] [address] Care Team Providers Care Gauge And Weigh Machine Operator Name Role Phone Reji Adams MD Primary Care Provider [phone] Encounter Details Date Type Department Care Team (Late st Contact Info) Description 01/22/2023 Transcribe [place] [phone] Javid Almanza II, MD [address] [place] [id number] Malignant neoplasm of prostate Social History Tobacco [...] 11:30 AM EDT Office [place] [address] Charline Ziegler MD [facility] [place] [address] documented as of this encounter Visit Diagnoses Diagnosis Malignant neoplasm of prostate documented in this encounter Care Teams Gauge And Weigh Machine Operator Relationship Specialty Start Date End Date Reji Adams MD [facility] [address] PCP - General General Internal Medicine 07/13/15 documented as of this encounter
--- OUTSIDE RECORDS SUMMARY | 2024-07-09 11:06 | XMS_ITS | Encounter Summary ---
Author Organization [facility] [place] [address] Care Team Providers Care Mint Machine Operator Name Role Phone Reji Adams MD Primary Care Provider [phone] Reason for Visit * Reason Comments Specialty Pharmacy Review Abiraterone 25 0mg tablet Encounter Details Date Type Department Care Team (Late st Contact Info) Description 11/20/2022 Specialty [place] [phone] Tressa Cantrell, [facility] Social History Tobacco Use Types Packs/Day Years [...] as of this encounter Progress Notes * Tressa Cantrell - 11/20/2022 11:59 PM EDT The [facility] has completed a benefits investigation for Ken Mckeon to review their eligibility to fill at [facility]. Per patient's medication list they are prescribed Abiraterone 250mg tablet and the medication may be able to be filled at the [facility]. The patient is seen by an outside provider. Test claim not run. The patient is currently filling the medication through [employer] documented in this encounter Plan of Treatment Upcoming Encounters Date Type Department Care Team (Late st Contact Info) Description 12/15/2024 11:30 AM EDT Office [place] [address] Charline Ziegler MD [facility] [place] [address] documented as of this encounter Visit Diagnoses Not on filedocumented in this encounter Care Teams Mint Machine Operator Relationship Specialty Start Date End Date Reji Adams MD [facility] GENERAL [place] [address] PCP - General General Internal Medicine 07/13/15 documented as of this encounter
--- OUTSIDE RECORDS SUMMARY | 2024-07-09 11:06 | XMS_ITS | Encounter Summary ---
Author Organization [facility] Address [facility] [place] [address] Care Team Providers Care Branch Associate Teller Name Role Phone Reji Adams MD Primary Care Provider [phone] Encounter Details Date Type Department Care Team (Late st Contact Info) Description 01/27/2023 Ancillary Procedure Radiology Library at [facility] [place] [phone] Reji Adams MD [facility] [place] [address] Social History Tobacco Use Types Packs/Day Years [...] 11:30 AM EDT Office [place] [address] Charline Ziegler MD [facility] [place] [address] documented as of this encounter Procedures Procedure Name Priority Date/Time Associated Diagnosis Comments FILM LIBRARY STORAGE ONLY DX SPINE Routine 01/27/2023 12:00 AM EDT documented in this encounter Results * Film Library- Storage Only DX Spine (01/27/2023 12:00 AM EDT) Narrative [facility] - 03/14/2023 3:38 PM EDT This exam is auto-finalizing. It's purpose is for storage only. Reji Adams MD IMG FILM LIBRARY ORD ERABLES [place], [place] documented in this encounter Visit Diagnoses Not on filedocumented in this encounter Care Teams Branch Associate Teller Relationship Specialty Start Date End Date Reji Adams MD [facility] [place] [address] PCP - General General Internal Medicine 07/13/15 documented as of this encounter
--- OUTSIDE RECORDS SUMMARY | 2024-07-09 11:06 | XMS_ITS | Encounter Summary ---
Author Organization [facility] Address [facility] [place] [address] Care Team Providers Care Medicaid Analyst Name Role Phone Reji Adams MD Primary Care Provider [phone] Reason for Visit * Reason Comments Follow-up Encounter Details Date Type Department Care Team (Late st Contact Info) Description 01/22/2023 11:30 AM EDT Office Visit Hematology [place] [address] Mike Louise MD [facility] DR HEMATOLOGY [place] [address] Prostate cancer metastatic to intrapelvic lymph node; Androgen deprivation therapy Social History Tobacco Use [...] Sign Reading Time Taken Comments Blood Pressure 113/75 01/22/2023 11:20 AM EDT Pulse 66 01/22/2023 11:20 AM EDT Temperature 36.2 ??C (97.2 ??F) 01/22/2023 1 1:20 AM EDT Respiratory Rate 18 01/22/2023 11:2 0 AM EDT Oxygen Saturation 99% 01/22/2023 11: 20 AM EDT Inhaled Oxygen Concentration - - Weight 86.5 kg (190 lb 11.2 oz) 023 11:20 AM EDT Height 182.1 cm (5' 11.69) 01/22/2023 11:20 AM EDT Body Mass Index 26.09 01/22/2023 11:20 AM EDT documented in this encounter Progress Notes * Mike Louise MD - 01/22/2023 11:30 AM EDT Images from the original note [...] Dr. White. Went for second opinion to [facility]. Mr. Mckeon had a PSMA PET scan at [facility] 07/02/21 and evaluation in radiation oncology and medical oncology by Dr. Marin and Dr. Desai, respectively at [facility].PET showed possible L2 and pelvic node recurrence ofprostate cancer s/p prostatectomy. A recommendation was made for lumbar spine MRI and the patient prefers to have it at this hospital,[facility]. I have requested the MRI L spine [...] Group: 5, 02/08/19, Sinan: 4, +: 5) - Signed by Leonid Tipton MD, MPH on 06/06/2021 02/22/2019 - Cancer Staged February 22, 2019: Nuclear medicine bone scan at [facility] showed no evidence of bony metastatic disease 05/18/2019 Surgery May 18, 2019: Radical prostatectomy with pathology reviewed at [facility] showed Sinan 4+5 involving 10% of [...] clinic for follow-up appointment prostate cancer. He has beenoff abiraterone and prednisone for about 2 months due to elevated blood pressure and heart racing/pounding.. He continues to follow with Dr. Sary Desai at [facility] he denies any new pain. He did not have PSMA PET scan PMH: No interval changes since last visit [...] Acetonide Hiccups Your Medications Accurate as of January 22, 2023 11:50 AM. If you have any questions, ask [...] 0.25 mg Quantity: 70 tablet Refills: 0 aspirin EC 81 mg [...] 20 mg Quantity: 90 tablet Refills: 3 tadalafiL 5 mg tablet Commonly known as: [...] and affect. Pathology: 05/18/2019 Outside slide(s) labeled [id number], collection date 05/18/2019. A) Soft tissue, left [...] Acinar adenocarcinoma Histologic Grade Grade Group and [place] Score: Grade group 5 ([place] Score 4 + 5 = 9) Percentage [...] pT2 Regional Lymph Nodes (pN): pN0 Labs: PSA testosteron 01/22/23 11/20/22 <0.01 10/14/22 0.064 10/14/22 PSA 0.064 [...] above, similar to prior exam. PSMA-PET, 06/29/21 ([facility] reading): 1. Mildly avid bilateral subcentimeter [...] started Lupron -09/11/2021 - 10/24/2021 Radiation Therapy - 09/12/2021 - started Abiraterone and prednisone. Mr. Mckeon was initially diagnosed with high risk prostate cancer in 2019. He underwent radical prostatectomy. PSA has been slowly rising and reached level of biochemical recurrence. He followed with Dr. White. He obtained second opinion Dr. Leonid Tipton and Dr. Desai, at [facility] cancer [place]. Had a restaging PSM a PET scan [...] he decides to proceed with treatment at [facility]. I am happy to see him on as-needed basis. 11/20/22 Mr. Mckeon followed with urologist for Eligard injection and with medical oncologist at [facility] but his oncologist left. He would like [...] known cardiac toxicity. He has appointment with chef saucier in November. We discussed holding off abiraterone [...] and PSMA PET scan He will see chef saucier in November 01/22/23 he continues to follow with medical oncologist Dr. Sary Desai at [facility] and discussed the options (copied form [...] stopping at 2 years. Overall, given his Neillsville 9 disease and jose metastasis the risk [...] back in 3 months with blood work. Plan: 1. D/c abiraterone and prednisone 2. Continue leuprolide 22.5 mg every 3 months locally 3. Next visit in 3 months with CBC, CMP, PSA, testosterone This encounter was primarily counseling-based (>50 % of total time) with total time of 40 minutes, of which 30 minutes was spent with the patient/family discussing: [...] 11:30 AM EDT Office Visit [place] [address] Charline Ziegler MD [facility] [place] [address] documented as of this encounter Visit Diagnoses Diagnosis Prostate cancer metastatic to intrapelvic lymph node Androgen deprivation therapy Encounter for therapeutic drug monitoring documented in this encounter Care Teams Medicaid Analyst Relationship Specialty Start Date End Date Reji Adams MD [facility] [place] [address] PCP - General General Internal Medicine 07/13/15 documented as of this encounter
--- OUTSIDE RECORDS SUMMARY | 2024-07-09 11:07 | XMS_ITS | Encounter Summary ---
Author Organization [facility] [place] [address] Care Team Providers Care Hand Sprayer Name Role Phone Reji Adams MD Primary Care Provider [phone] Encounter Details Date Type Department Care Team (Latest Contact Info) Description 09/09/2022 9:26 AM EST - 09/09/2022 11:59 PM [facility] [place] [address] Osteoporosis, unspecified osteoporosis type, unspecified pathological fracture [...] Sig Dispensed Refills Start Date End Date acetaminophen (TYLENOL) 650 mg Tablet Sustained Release Take 650 mg by mouth every 8 hours as needed for Pain. Do not exceed 6 tabs in 24 hours multivitamin (THERAGRAN) tablet Take 1 tablet by mouth daily. ALPRAZolam (Xanax) 0.25 mg TabletIndications:An xiety Take 1 tablet by mouth 3 times daily as needed for Anxiety. 90 tablet 08/12/2022 09/14/2022 pravastatin (Pravachol) 20 mg Tablet Take 1 tablet by mouth daily. 90 tablet 3 08/05/2022 04/28/2023 celecoxib (CeleBREX) 100 mg Capsule Take 100 mg by mouth as needed. 02/11/2022 11/08/2022 leuprolide, 3 month, (Eligard) Syringe Inject 1 mg subcutaneously. 08/06/2021 11/08/2022 abiraterone (Zytiga) 250 mg Tablet Take 1,000 mg by mouth daily. 01/03/2022 11/26/2022 predniSONE (Deltasone) 5 mg Tablet Take 5 mg by mouth daily. 01/02/2022 11/26/2022 leuprolide, 3 month, (Eligard) Syringe Inject 22.5 mg subcutaneously once. 03/17/2023 tadalafiL (CIALIS) 5 mg Tablet Take 5 mg by mouth as needed for Erectile Dysfunction. 03/17/2023 MALCOLM EXTRACT ORAL Take by mouth. 11/09/19 aspirin 81 mg Tablet, Delayed Release (E.C.) Take 81 mg by mouth daily. 03/17/2023 documented as of this encounter Plan of Treatment Upcoming Encounters Date Type Department Care Team (Late st Contact Info) Description 12/15/2024 11:30 AM EDT Office [place] [address] Charline Ziegler MD [facility] [place] [address] documented as of this encounter Procedures Procedure Name Priority Date/Time Associated Diagnosis Comments U24 HRS AND VOLUME Routine 09/09/2022 6: 43 AM EST HC CALCIUM QUANTITATIVE, URINE TIME SPEC 24 HR Routine 09/09/2022 6:43 AM EST Osteoporosis, unspecified osteoporosis type, unspecified pathological fracture presence HC CREATININE - NON BLOOD Routine 09/09/2022 6:43 AM EST Osteoporosis, unspecified osteoporosis type, unspecified pathological fracture presence documented in this encounter Results * U24 Hrs and Volume (09/09/2022 6:43 AM EST) Hours Collected 24 hour(s) [facility] Total Volume 2,750 mL [facility] Urine 09/09/2022 6:43 AM EST 09/09/2022 10:10 AM EST Narrative Resulting Agency Comment Spec In Lab Rafat Puckett MD CHEMISTRY ORDERABLES Performing Organization Address City/[facility]/ZIP Co de Phone Number [facility] [place] [address] * Creatinine, urine, 24 hour (09/09/2022 6:43 AM EST) Cre Concentration, U24 45 mg/dL [facility] Creatinine, 24 Hour Urine 1.24 1.00 - 2.40 g/24hr [facility] Urine 09/09/2022 6:43 AM EST 09/09/2022 10:10 AM EST Narrative Resulting Agency Comment Spec In Lab Rafat Puckett MD URINE ORDERABLES [facility] [place] [address] * (ABNORMAL) Calcium, urine, 24 hour (09/09/2022 6:43 AM EST) Ca Concentration, U24 14.9 mg/dL [facility] Calcium, 24 Hour Urine 409.8(H) 50.0 - 300.0 mg/24hr [facility] Comment:Reference Range: 50. 0-300.0 mg/24 hour based on diet. Urine 09/09/2022 6:43 AM EST 09/09/2022 10:10 AM EST Narrative Resulting Agency Comment Spec In Lab Rafat Puckett MD URINE ORDERABLES [facility] [place] [address] documented in this encounter Visit Diagnoses Diagnosis Osteoporosis, unspecified osteoporosis type, unspecified pathological fracture presence documented in this encounter Care Teams Hand Sprayer Relationship Specialty Start Date End Date Reji Adams MD [facility] [place] [address] PCP - General General Internal Medicine 07/13/15 documented as of this encounter
--- OUTSIDE RECORDS SUMMARY | 2024-07-09 11:07 | XMS_ITS | Encounter Summary ---
Author Organization [facility] [place] [address] Care Team Providers Care Bee Farmer Name Role Phone Reji Adams MD Primary Care Provider [phone] Encounter Details Date Type Department Care Team (Latest Contact Info) Description 09/06/2022 Travel Social History Tobacco Use Types Packs/Day [...] 11:30 AM EDT Office Visit [place] [address] Charline Ziegler MD [facility] [place] [address] documented as of this encounter Visit Diagnoses Not on filedocumented in this encounter Care Teams Bee Farmer Relationship Specialty Start Date End Date Reji Adams MD [facility] [place] [address] PCP - General General Internal Medicine 07/13/15 documented as of this encounter
--- OUTSIDE RECORDS SUMMARY | 2024-07-09 11:07 | XMS_ITS | Encounter Summary ---
Author Organization [facility] [place] [address] Care Team Providers Care Multimedia Programmer Name Role Phone Reji Adams MD Primary Care Provider [phone] Encounter Details Date Type Department Care Team (Latest Contact Info) Description 10/29/2022 Travel Social History Tobacco Use Types Packs/Day [...] 11:30 AM EDT Office [place] [address] Charline Ziegler MD [facility] [place] [address] documented as of this encounter Visit Diagnoses Not on filedocumented in this encounter Care Teams Multimedia Programmer Relationship Specialty Start Date End Date Reji Adams MD [facility] [place] [address] PCP - General General Internal Medicine 07/13/15 documented as of this encounter
--- OUTSIDE RECORDS SUMMARY | 2024-07-09 11:07 | XMS_ITS | Encounter Summary ---
Author Organization [facility] Address [facility] [place] [address] Care Team Providers Care Track Greaser Name Role Phone Reji Adams MD Primary Care Provider [phone] Reason for Visit * Reason Onset Date Comments Medication Refill 08/05/2022 Encounter Details Date Type Department Care Team (Late st Contact Info) Description 08/05/2022 Refill Internal Medicine at [address] [address] Reji Adams MD [facility] GENERAL [place] [address] Social History Tobacco Use Types Packs/Day Years [...] 11:30 AM EDT Office [place] [address] Charline Ziegler MD [facility] [place] [address] documented as of this encounter Visit Diagnoses Not on filedocumented in this encounter Care Teams Track Greaser Relationship Specialty Start Date End Date Reji Adams MD [facility] [address] PCP - General General Internal Medicine 07/13/15 documented as of this encounter
--- OUTSIDE RECORDS SUMMARY | 2024-07-09 11:07 | XMS_ITS | Encounter Summary ---
Author Organization [facility] [place] [address] Care Team Providers Care Asphalt Still Operator Name Role Phone Reji Adams MD Primary Care Provider [phone] Encounter Details Date Type Department Care Team (Latest Contact Info) Description 08/20/2022 10:30 AM EST Office Visit Audiology at [address] [address] Adenike Padgett, ZE [facility] [place] [address] Asymmetrical sensorineural hearing loss; History of sudden hearing loss Social History Tobacco Use Types Packs/Day Years [...] as of this encounter Progress Notes * Adenike Padgett AUD - 08/20/2022 10:30 AM [place] [address] PPE used during visit: Goggles, Level 2 mask Ken Mckeon, 76 y.o., was seen on 08/20/2022 for an audiologic evaluation in conjunction with Savanah Hernandez APRN in Otolaryngology. Please refer to the electronic audiogram listed under Procedures in Chart Review for findings, impressions and recommendations. Enclosure: [place] [address] documented in this encounter Plan of Treatment Upcoming Encounters Date Type Department Care Team (Late st Contact Info) Description 12/15/2024 11:30 AM EDT Office Visit [place] [address] Charline Ziegler MD [facility] [place] [address] documented as of this encounter Procedures Procedure Name Priority Date/Time Associated Diagnosis Comments COMPREHENSIVE HEARING TEST Routine 08/20/2022 10:24 AM EST documented in this encounter Results * Comprehensive hearing test (08/20/2022 10:24 AM EST) 08/20/2022 10:2 4 AM EST Narrative AUDBASE COMP - 08/20/2022 10:24 AM EST Seen in conjunction with Savanah Hernandez APRN in ENT. Hx of sudden SNHL on the left in Jul 2021. He reported that hearing improved shortly afterwards. More recently, he has been experiencing sharp shooting pains of the left ear. He continues to experience a high pitched whine tinnitus on the left. Results: Asymmetric SNHL, L>R. Thresholds have improved on the left back to baseline 2019 levels. Recorded MEEI. Rec: Follow up per ENT. Procedure Note Unknown - 08/20/2022 Seen in conjunction with Savanah Hernandez APRN in ENT. Hx of sudden SNHL on theleft in Jul 2021. He reported that hearing improved shortly afterwards. More recently, he hasbeen experiencing sharp shooting pains of the left ear. He continues to experience a highpitched whine tinnitus on the left. Results: Asymmetric SNHL, L>R. Thresholds have improved on the left backto baseline 2019 levels. Recorded MEEI. Rec: Follow up per ENT. Adenike [facility]UD[facility] documented in this encounter Visit Diagnoses Diagnosis Asymmetrical sensorineural hearing loss Sensorineural hearing loss, asymmetrical History of sudden hearing loss Personal history of other disorders of nervous system and sense organs documented in this encounter Care Teams Asphalt Still Operator Relationship Specialty Start Date End Date Reji dAams MD [facility] [place] [address] PCP - General General Internal Medicine 07/13/15 documented as of this encounter
--- OUTSIDE RECORDS SUMMARY | 2024-07-09 11:07 | XMS_ITS | Encounter Summary ---
Author Organization [facility] [place] [address] Care Team Providers Care Search Lead Name Role Phone Reji Newberry MD Primary Care Provider [phone] Encounter Details Date Type Department Care Team (Late st Contact Info) Description 10/31/2022 Refill Internal Medicine at [address] [address] Amrita Webster, AGNIESZKA Anxiety Social History Tobacco Use Types Packs/Day [...] Telephone Encounter - Amrita Webster RN - 10/31/2022 7:01 AM EDT Copied from [facility] #[id number]. Topic: Pharmacy Call - RX Issues >> Oct 30, 2022 3:18 PM Daya Colby wrote: Rx Issues PCP: REJI NEWBERRY Reason for Call: Patient called and stated pharmacy does not have the 0.25mg available. Patient stated they have 0.5mg available. Patient is looking for a prescription to state that its ok to break the 0.5mg tablets in half. Please call to advise. Name of Medication: ALPRAZolam (Xanax) 0.25 mg tablet Name of Prescriber: REJI NEWBERRY Name of Pharmacy: [facility] Address for Pharmacy: [address] [place] [address]/[facility] & State for Pharmacy: [place] [address] Is the Patient Currently at the Pharmacy: no documented in this encounter Plan of Treatment Upcoming Encounters Date Type Department Care Team (Late st Contact Info) Description 12/15/2024 11:30 AM EDT Office Visit [place] [address] Charline Ziegler MD [facility] [place] [address] documented as of this encounter Visit Diagnoses Diagnosis Anxiety Anxiety state, unspecified documented in this encounter Care Teams Search Lead Relationship Specialty Start Date End Date Reji Newberry MD [facility] [place] [address] PCP - General General Internal Medicine 07/13/15 documented as of this encounter
--- OUTSIDE RECORDS SUMMARY | 2024-07-09 11:07 | XMS_ITS | Encounter Summary ---
Author Organization [facility] [place] [address] Care Team Providers Care Fiber Optics Supervisor Name Role Phone Reji Adams MD Primary Care Provider [phone] Encounter Details Date Type Department Care Team (Latest Contact Info) Description 08/06/2022 2:45 PM EST Laboratory Appointment Lab at [address] [address] History of total replacement of both hip joints; Pain in right hip Social History Tobacco Use Types [...] 11:30 AM EDT Office Visit Gastroenterology at [facility] [place] [address] Charline Ziegler MD [facility] [place] [address] documented as of this encounter Procedures Procedure Name Priority Date/Time Associated Diagnosis Comments HC C-REACTIVE PROTEIN STAT 08/06/2022 2:39 PM EST History of total replacement of both hip joints Pain in right hip HEMOGRAM STAT 08/06/2022 2:39 PM EST History of total replacement of both hip joints Pain in right hip DIFFERENTIAL, AUTOMATED STAT 08/06/2022 2:39 PM EST History of total replacement of both hip joints Pain in right hip HC VENIPUNCTURE STAT 08/06/2022 2:39 PM EST History of total replacement of both hip joints Pain in right hip HC CBC,PLT & AUTO DIFF STAT 08/06/2022 2:39 PM EST History of total replacement of both hip joints Pain in right hip documented in this encounter Results * (ABNORMAL) Differential, Automated (08/06/2022 2:39 PM EST) Neutrophil % 77.1 % [facility] Neutrophil Absolute 4.14 1.70 - 6.10 x10(3)/mc L [facility] Lymph % 15.1 % [facility] Lymphocytes Abs 0.8(L) 0.9 - 3.2 x10(3)/mc L [facility] Monocyte % 6.3 % [facility] Monocyte Abs 0.3 0.3 - 0.9 x10(3)/ L [facility] Eos % 1.1 % [facility] Eosinophils Abs 0.1 0.0 - 0.4 x10(3)/[facility] Basophil % 0.2 % [facility] Baso Absolute 0.0 0.0 - 0.1 x10(3)/mc L [facility] Immature Gran % 0.20 % [facility] Comment: Immature granulocytes(IG's)percentage and absolute count will include metamyelocytes, myelocytes, and promyelocytes. Blood smears from CBCs yielding IG's will be scanned manually for concordance. If this scan disagrees with the automated IG or if promyelocytes are noted, a manual differential will be performed. Immature Gran Absolute 0.01 0.00 - 0.04 x10(3)/[facility] Blood 08/06/2022 2:39 PM EST 08/06/2022 2:39 PM EST Narrative Resulting Agency Comment Spec In Lab Jay Khan MD HEMATOLOGY ORDERABLE S Performing Organization Address City/State/[facility] Co de Phone Number [facility] [address] [place] [address] * (ABNORMAL) Hemogram (08/06/2022 2:39 PM EST) White Blood Cell 5.4 4.0 - 9.5 x10(3)/ L [facility] Red Blood Cell 4.32(L) 4.58 - 5.54 x10(6)/ L [facility] Hemoglobin 13.4(L) 13.7 - 16.5 g/dL [facility] Hematocrit 39.6(L) 40.5 - 48.5 % [facility] Mean Cell Volume 91.7 82.9 - 93.1 fL [facility] Mean Cell Hemoglobin 31.0 27.5 - 32.1 pg [facility] Mean Cell Hemoglobin Concentration 33.8 32.0 - 35.7 g/dL [facility] Platelet 188 145 - 357 x10(3)/ L [facility] RDW Standard Deviation 47.7(H) 36.0 - 45.0 fL [facility] RDW coefficient of variation 14.0(H) 11.4 - 13.8 % [facility] Mean Platelet Volume 9.1 7.6 - 12.9 fL [facility] Blood 08/06/2022 2:39 PM EST 08/06/2022 2:39 PM EST Narrative Resulting Agency Comment Spec In Lab Jay Khan MD HEMATOLOGY ORDERABLE S [facility] [address] [place] [address] * CRP, acute inflammation (08/06/2022 2:39 PM EST) C-Reactive Protein 3.0 <=4.9 mg/L [facility] Blood 08/06/2022 2:39 PM EST 08/06/2022 2:39 PM EST Narrative Resulting Agency Comment Spec In Lab Thad Jolley MD CHEMISTRY ORDERABLES Performing Organization Address City/[facility]/ZIP Co de Phone Number [facility] [address] [place] [phone] * Sedimentation rate (08/06/2022 2:39 PM EST) Sedimentation Rate Automated 8 0 - 15 mm/hr [facility] Blood 08/06/2022 2:39 PM EST 08/06/2022 2:39 PM EST Narrative Resulting Agency Comment Spec In Lab Thad Jolley MD HEMATOLOGY ORDERABLE S [facility] [address] [place] [id number] documented in this encounter Visit Diagnoses Diagnosis History of total replacement of both hip joints Pain in right hip Pain in joint, pelvic region and thigh documented in this encounter Care Teams Fiber Optics Supervisor Relationship Specialty Start Date End Date Reji Adams MD [facility] GENERAL [place] [address] PCP - General General Internal Medicine 07/13/15 documented as of this encounter
--- OUTSIDE RECORDS SUMMARY | 2024-07-09 11:07 | XMS_ITS | Encounter Summary ---
Author Organization [facility] [place] [address] Care Team Providers Care Practice Representative Name Role Phone Reji Adams MD Primary Care Provider [phone] Encounter Details Date Type Department Care Team (Latest Contact Info) Description 08/06/2022 2:41 PM EST - 08/06/2022 11:59 PM [facility] Hospital Encounter XRay at [address] [phone] Thad Jolley MD History of total replacement of both hip joints Discharge Disposition: Home Social History Tobacco Use [...] tablet Take 1 tablet by mouth daily. pravastatin (Pravachol) 20 mg Tablet Take 1 tablet by mouth daily. 90 tablet 3 08/05/2022 04/28/2023 ALPRAZolam (Xanax) 0.25 mg TabletIndications:An xiety Take 1 tablet by mouth 3 times daily as needed for Anxiety. 90 tablet 07/14/2022 08/11/2022 celecoxib (CeleBREX) 100 mg Capsule Take 100 [...] 11:30 AM EDT Office Visit Gastroenterology at [facility] [place] [address] Charline Ziegler MD [facility] [place] [address] documented as of this encounter Procedures Procedure Name Priority Date/Time Associated Diagnosis Comments XR PELVIS AND HIP 2 VIEWS BILATERAL Routine 08/06/2022 3:28 PM EST History of total replacement of both hip joints documented in this encounter Results * XR Pelvis and Hip 2 Views Bilateral (08/06/2022 3:28 PM EST) Anatomical Region Laterality Modality Pelvis, Hip Bilateral Digital Radiogra phy Impressions 08/06/2022 4:05 PM EST 1. ??Uncomplicated bilateral total hip arthroplasties. Thank you for letting us participate in the care of this patient. ??If you are a health care provider and have any questions regarding this report, please contact the number below. ??For patients who have questions please contact the health health care / medical job titles that requested your imaging first. ? Narrative 08/06/2022 4:05 PM EST EXAMINATION: XR PELVIS AND HIP 2 VIEWS BILATERAL CLINICAL HISTORY: s/p b/l ROYAL with increasing right hip pain, assess for any abnormality or component complication (as entered by ordering provider in the order requisition) TECHNIQUE: AP view the pelvis. AP and frog leg lateral views of each hip. COMPARISON: Abdominal radiograph 07/01/2022. CT of the abdomen and pelvis 07/09/2022. FINDINGS: There is diffuse osseous demineralization. There is a right total hip arthroplasty. The femoral head component is centered within the acetabular cup. No periprosthetic fracture or bone resorption. There is a left total hip arthroplasty. The femoral head component is centered within the acetabular cup. No periprosthetic fracture or bone resorption. There are post procedure changes of vertebroplasty at the lowest lumbar level and sacroplasty of the bilateral upper sacral ala. Subchondral sclerosis and marginal osteophyte formation of the bilateral sacroiliac joints is better seen by CT. Procedure Note Loreta Cornelius MD - 08/06/2022 EXAMINATION: XR PELVIS AND HIP 2 VIEWS BILATERAL CLINICAL HISTORY: s/p b/l ROYAL with increasing right hip pain, assess forany abnormality or component complication (as entered by ordering provider inthe order requisition) TECHNIQUE: AP view the pelvis. AP and frog leg lateral views of each hip. COMPARISON: Abdominal radiograph 07/01/2022. CT of the abdomen and pelvis 07/09/2022. FINDINGS: There is diffuse osseous demineralization. There is a right total hip arthroplasty. The femoral head component iscentered within the acetabular cup. No periprosthetic fracture or boneresorption. There is a left total hip arthroplasty. The femoral head component iscentered within the acetabular cup. No periprosthetic fracture or boneresorption. There are post procedure changes of vertebroplasty at the lowest lumbarlevel and sacroplasty of the bilateral upper sacral ala. Subchondral sclerosisand marginal osteophyte formation of the bilateral sacroiliac joints is betterseen by CT. IMPRESSION 1. Uncomplicated bilateral total hip arthroplasties. Thank you for letting us participate in the care of this patient. If youare a health care provider and have any questions regarding this report,please contact the number below. For patients who have questions please contactthe health health care / medical job titles that requested your imaging first. Thad Jolley MD IMG DX ORDERABLES documented in this encounter Visit Diagnoses Diagnosis History of total replacement of both hip joints documented in this encounter Care Teams Practice Representative Relationship Specialty Start Date End Date Reji Adams MD [facility] [place] [address] PCP - General General Internal Medicine 07/13/15 documented as of this encounter
--- OUTSIDE RECORDS SUMMARY | 2024-07-09 11:07 | XMS_ITS | Encounter Summary ---
Author Organization [facility] Address [facility] [place] [address] Care Team Providers Care Auto Refinisher Name Role Phone Reji Adams MD Primary Care Provider [phone] Reason for Visit * Reason Onset Date Comments Medication Refill 09/14/2022 Encounter Details Date Type Department Care Team (Late st Contact Info) Description 09/14/2022 Refill Internal Medicine at [address] [address] Reji Adams MD [facility] GENER[facility] [place] [address] Anxiety Social History Tobacco Use Types Packs/Day [...] 11:30 AM EDT Office [place] [address] Charline Ziegler MD [facility] [place] [address] documented as of this encounter Visit Diagnoses Diagnosis Anxiety Anxiety state, unspecified documented in this encounter Care Teams Auto Refinisher Relationship Specialty Start Date End Date Reji Adams MD [facility] GENER[facility] [place] [address] PCP - General General Internal Medicine 07/13/15 documented as of this encounter
--- OUTSIDE RECORDS SUMMARY | 2024-07-09 11:07 | XMS_ITS | Encounter Summary ---
Author Organization [facility] Address [facility] [place] [address] Care Team Providers Care Vp Clinical Research Name Role Phone Reji Adams MD Primary Care Provider [phone] Reason for Referral * Physical Therapy (Routine) - Closed Specialty Diagnoses / Procedures Referred By Duglas arizmendi Referred To Contact Diagnoses Chronic constipation Pelvic floor dysfunction Kristofer Ravi MD [facility] [place] [address] Manuel Damian, PT [address] [facility] [address] [place] [address] Referral ID Status Reason Start Date Expiration Date V isits Requested Visits Authorized [id number] Closed Evaluate and Treat 08/05/2022 02/01/2023 12 12 Encounter Details Date Type Department Care Team (Latest Contact Info) Description 08/05/2022 4:30 PM EST TH Visit (TeleHealth) [place] [address] Kristofer Ravi MD [facility] [place] [address] Chronic constipation; Pelvic floor dysfunction; Constipation, unspecified constipation type Social History Tobacco [...] as of this encounter Progress Notes * Kristofer Ravi MD - 08/05/2022 4:30 PM EST [facility] TELE[facility]ICINE [facility] Chief Complaint: Ken Mckeon is a 76 [address] of [address] Theodora maldonado. provider found here for follow-up of constipation. Detailed history on 01/31/20: 76 y.o. male with history of cervical spine surgery, OA, insomnia, anxiety, peripheral neuropathy, prostate cancer s/p prostatectomy in 2019. and chronic constipation. He is now s/p bilat hip replacement, s/p sacroplasty in 04/2022, and s/p XRT in spring 2021 for prostate cancer ?? He complains of several years of up to 5 days without a BM, then numerous soft, small nonbloody BMs([place] 3-5), with frequent straining with failed attempts at defecation regularly. He denies sensation of incomplete evacuation, prolonged toileting, or digitation. ?? He lost significant weight in the last year but unsure why with relatively normal appetite (42 waist to 38). ?? He endorses intermittent oropharyngeal dysphagia feeling like forgetting how to swallow with spit/saliva, but denies dysphagia to solids or liquids. Denies globus sensation. He endorses infrequent bothersome heartburn, usually when he takes Cialis. ?? Denies fevers, chills, abdominal pain, bloating, nausea, vomiting, odynophagia, regurgitation ? Prior regimen Senna as needed Mag citrate as needed Dulcolax as needed Up to miralax 2 caps twice daily for <1 week (bloating, ineffective) Prior enemas x2 and suppositories Did not try low FODMAP ?? Interval history: S/p hip replacement since 2019 Had a sacroplasty on 05/22 He underwent XRT for prostate cancer last spring Since sacroplasty: Constipation worsened since then, straining, less urge to defecate, small soft stools, he denies need for manual maneuvers to defecate. He had a colonoscopy in 06/2022 and felt better for a short period after that Denies fecal incontinence or diarrhea Denies rectal bleeding Denies nausea, vomiting, abdominal pain Dysphagia improved since last visit, now he endorses phlegm Weight stable Current regimen miralax daily metamucil every 1-2 days Review of systems: 14-point review of systems reviewed and negative except as above. Medications: Outpatient Medications Prior to Visit Medication Sig Dispense Refill ??? ALPRAZolam (Xanax) 0.25 mg Tablet Take 1 tablet by mouth 3 times daily as needed for Anxiety. 90 tablet 0 ??? methylPREDNISolone (MEDROL DOSPACK) 4 mg Tablets, Dose Pack Use as directed on product package.21 tablet 0 ??? celecoxib (CeleBREX) 100 mg Capsule Take 100 mg by mouth as needed. ??? leuprolide, 3 month, (Eligard) Syringe Inject 1 mg subcutaneously. ??? abiraterone (Zytiga) 250 mg Tablet Take 1,000 mg by mouth daily. ??? predniSONE (Deltasone) 5 mg Tablet Take 5 mg by mouth daily. ??? leuprolide, 3 month, (Eligard) Syringe Inject 22.5 mg subcutaneously once. ??? pravastatin (Pravachol) 20 mg Tablet Take 1 tablet by mouth daily. 90 tablet 3 ??? tadalafiL (CIALIS) 5 mg Tablet Take 5 mg by mouth as needed for Erectile Dysfunction. ??? MALCOLM EXTRACT ORAL Take by mouth. ??? acetaminophen (TYLENOL) 650 mg Tablet Sustained Release Take 650 mg by mouth every 8 hours as needed for Pain. Do not exceed 6 tabs in 24 hours ??? aspirin 81 mg Tablet, Delayed Release (E.C.) Take 81 mg by mouth daily. ??? multivitamin (THERAGRAN) tablet Take 1 tablet by mouth daily. No facility-administered medications prior to visit. Allergies: is allergic to penicillins, betamethasone, dexamethasone, and triamcinolone acetonide. Past Medical History: has a past medical history of BPH (benign prostatic hyperplasia), Neck pain (08/24/2012), OA (osteoarthritis) of knee, and Spinal cord injury at (2015). Past Surgical History: has a past surgical history that includes created by interface; Ligate/StripLong Saph Vein Belw Sep-Fem Junc (73871) (06/02/2012); Phleb Veins - Extrem - To 20 (59336) (06/02/2012); Colonoscopy, Diagnostic (15548) (09/07/2013); Upper Gi Endoscopy, Biopsy (39903) (N/A, 09/02/2017); US Guided Biopsy Prostate ([place] ONLY) (02/08/2019); Colonoscopy, Lisa Currie, Snare ([id number]) (N/A, 01/25/2020); Upper Gi Endoscopy, Biopsy ([id number]) (N/A, 01/25/2020); Endoscopic Us Exam, Esoph ([id number]) (N/A, 03/14/2020); Upper Gi Endoscopy, Biopsy ([id number]) (N/A, 03/14/2020); CT Guided Sacroplasty/Vertebroplasty (05/22/2022); and Colonoscopy, Diagnostic ([id number]) (N/A, 07/26/2022). Family History: family history includes [...] reports that he does not use drugs. No Physical Examination performed during this telemedicine visit Questionnaire: Q-[facility] 07/[place]/20[place] [facility] [place] Healthy Day Score 0 Work Absenteeism Incomplete Work Presenteeism Incomplete Laboratory studies, imaging, and procedures (in summary of my review of prior records): Colonoscopy 07/26/22 - normal with diverticulosis Assessment/Plan: Mr. Mckeon is a 76 y.o. patient with # chronic constipation - failed laxative with bowel purge. Query pelvic floor dysfunction in setting of spinal cord issues. We discussed that addressing spinal cord directly may not improve bowel function, but at least his back and spine can be evaluated by a specialist in that area ? We discussed that complete symptom relief may not be a fully achievable goal for this chronic condition, but that improvement in quality of life, healthy days at work and family functions, and also general symptom improvement may be more reasonable goals. We discussed that treatments should be tried individually and for periods of at least 4-8 weeks to truly assess symptom response. I did my bestto answer questions to the fullest ability. We discussed that recommended treatments should be tried individually for at least three months at a time to truly assess for a meaningful response, or as long as tolerated, before changing therapy. ?? Recommendations: - anorectal manometry to evaluate RAIR, if absent this cannot be restored but will inform underlying etiology of constipation - referral to pelvic floor physical therapy for biofeedback and neuromuscular re-education, patientaware of nature of PT - he will increase miralax to 2 caps daily, and stay on metamucil - Rescue regimen if no bowel movement for 3 days despite the bowel regimen above Step 1) use a glycerin suppository at night then try to have a bowel movement in 10-15 minutes Step 2) if glycerin does not work, try a dulcolax suppository 30 minutes later Step 3) If still ineffective, use a warm (not hot) tap water enema Backup options he can try with his [...] two peeled (green or gold) kiwifruit per day?. 3) Mix 1 cup apple sauce, 1 cup oat? bran, ?? cup prune juice?. Take one Tbsp. Daily. Freeze the rest in an ice cube tray? to use as needed. Drug trials: try linzess 290mcg daily, if that fails, switch to motegrity 2mg daily if those fail, then advise mcfp glycerin suppository with tap water enema as needed RTC in 6 months with motility STEVIE to further consolidate the GI care plan for the patient's local team. Due to the consultative nature of our practice, the patient should continue to work with his PCP as the primary point of contact for urgent issues, medication refills and adjustments as needed for continuity of care purposes in between visits to our center based on the recommendations above. I informed him that I am leaving the [facility] [place] in October, so he will followup with his PCP for interval management and see a GI provider as above to update his plan of care from the GI perspectivefor active management by his PCP as needed. Patient verbally consents to this telephone visit and understands that this visit may be billed, similar to a clinic office visit. I provided care to the patient today via telephone call. Changed to telephone as patient does not have access to video and could not make it today for inperson eval. TIME SPENT WITH PATIENT Time spent reviewing records prior to this encounter on day of appointment: 5 minutes Time spent during encounter with patient including counselin minutes Time spent documenting encounter after office visit: 10 minutes Kristofer Ravi MD [facility] [place] [address] documented in this encounter Plan of Treatment Upcoming Encounters Date Type Department Care Team (Late st Contact Info) Description 12/15/2024 11:30 AM EDT Office [place] [address] Charline Ziegler MD [facility] [place] [address] Scheduled Referrals Name Type Priority Associated Diagnoses Orde r Schedule Referral to Physical Therapy Outpatient Referral Routine Chronic constipation Pelvic floor dysfunction Ordered: 08/05/2022 documented as of this encounter Visit Diagnoses Diagnosis Chronic constipation Unspecified constipation Pelvic floor dysfunction Pelvic muscle wasting Constipation, unspecified constipation type documented in this encounter Care Teams Vp Clinical Research Relationship Specialty Start Date End Date Reji Adams MD [facility] [place] [address] PCP - General General Internal Medicine 07/13/15 documented as of this encounter
--- OUTSIDE RECORDS SUMMARY | 2024-07-09 11:07 | XMS_ITS | Encounter Summary ---
Author Organization [facility] [place] [address] Care Team Providers Care Fastener Sewing Machine Operator Name Role Phone Reji Adams MD Primary Care Provider Encounter Details Date Type Department Care Team (Latest Contact Info) Description 08/05/2022 Travel Social History Tobacco Use Types Packs/Day [...] 11:30 AM EDT Office [place] [address] Charline Ziegler MD [facility] [place] [address] documented as of this encounter Visit Diagnoses Not on filedocumented in this encounter Care Teams Fastener Sewing Machine Operator Relationship Specialty Start Date End Date Reji Adams MD [facility] [place] [address] PCP - General General Internal Medicine 07/13/15 documented as of this encounter
--- OUTSIDE RECORDS SUMMARY | 2024-07-09 11:07 | XMS_ITS | Encounter Summary ---
Author Organization [facility] [place] [address] Care Team Providers Care Account Relationship Manager Name Role Phone Reji Adams MD Primary Care Provider [phone] Encounter Details Date Type Department Care Team (Latest Contact Info) Description 08/27/2022 2:30 PM EST TH Visit (TeleHealth) Orthopaedics at [address] [phone] Thad Jolley MD Sacral insufficiency fracture, sequela Social History Tobacco Use Types Packs/Day Years [...] as of this encounter Progress Notes * Thad Jolley MD - 08/27/2022 2:30 PM EST No visit just telephone call documented in this encounter Plan of Treatment Upcoming Encounters Date Type Department Care Team (Late st Contact Info) Description 12/15/2024 11:30 AM EDT Office Visit [place] [address] Charline Ziegler MD [facility] [place] [place] [address] documented as of this encounter Visit Diagnoses Diagnosis Sacral insufficiency fracture, sequela documented in this encounter Care Teams Account Relationship Manager Relationship Specialty Start Date End Date Reji Adams MD [facility] [place] [address] PCP - General General Internal Medicine 07/13/15 documented as of this encounter
--- OUTSIDE RECORDS SUMMARY | 2024-07-09 11:07 | XMS_ITS | Encounter Summary ---
Author Organization [facility] [place] [address] Care Team Providers Care Credit Specialist Name Role Phone Reji Adams MD Primary Care Provider [phone] Encounter Details Date Type Department Care Team (Late st Contact Info) Description 08/27/2022 [place] [address] Thad Jolley MD Social History Tobacco Use Types Packs/Day [...] encounter Miscellaneous Notes * Telephone Encounter - Thad Jolley MD - 08/27/2022 2:37 PM EST Telephone discussion with patient regarding his MRI. I also discussed his case with Dr. Estevez regarding potential percutaneous fixation of nondisplaced insufficiency fractures of the pelvis. At this point we think that a endocrinology work-up would be most reasonable. A referral was sent to endocrin ology. I reviewed this with patient. I reviewed his MRI findings with him and he is happy to move forward with endocrinology work-up. * Telephone Encounter - Thad Jolley MD - 08/27/2022 2:37 PM EST ----- Message from Harrison Mandel MD sent at 08/18/2022 8:04 AM EST ----- Gregor Oneil, Looks like his pain is probably coming from his multiple insufficiency fractures in his pelvis. Is he really unhealthy? I think he should have a full endocrine workup, pretty unusual to have this much in 76yo male. I think screws could temporarily help with his pain, but it wont help whatever underlying metabolic bone derangement he has. I think that needs to be figured out for him to be able to heal his fractures. ----- Message ----- From: Thad Jolley MD Sent: 08/17/2022 7:57 AM EST To: Harrison Mandel MD What do you think this is his new MRI. This is the sagar I spoke to you about. kwd ----- Message ----- From: Department, Radiology Sent: 08/15/2022 9:35 AM EST To: Thad Jolley MD documented in this encounter Plan of Treatment Upcoming Encounters Date Type Department Care Team (Late st Contact Info) Description 12/15/2024 11:30 AM EDT Office [place] [address] Charline Ziegler MD [facility] [address] documented as of this encounter Visit Diagnoses Not on filedocumented in this encounter Care Teams Credit Specialist Relationship Specialty Start Date End Date Reji Adams MD [facility] [address] PCP - General General Internal Medicine 07/13/15 documented as of this encounter
--- OUTSIDE RECORDS SUMMARY | 2024-07-09 11:07 | XMS_ITS | Encounter Summary ---
Author Organization [facility] [place] [address] Care Team Providers Care Car Dispatcher Name Role Phone Reji Adams MD Primary Care Provider [phone] Encounter Details Date Type Department Care Team (Late st Contact Info) Description 10/30/2022 Transcribe [place] [phone] Javid Almanza II, MD [address] [place] [address] Malignant neoplasm of prostate Social History Tobacco [...] 11:30 AM EDT Office [place] [address] Charline Ziegler MD [facility] [place] [address] Scheduled Orders Name Type Priority Associated Diagnoses Orde r Schedule Lab Use Only, Fax Request Lab Routine Malignant neoplasm of prostate Expected: 10/30/2022 (Approximate), Expires: 10/31/2023 documented as of this encounter Visit Diagnoses Diagnosis Malignant neoplasm of prostate documented in this encounter Care Teams Car Dispatcher Relationship Specialty Start Date End Date Reji Adams MD [facility] [place] [address] PCP - General General Internal Medicine 07/13/15 documented as of this encounter
--- OUTSIDE RECORDS SUMMARY | 2024-07-09 11:07 | XMS_ITS | Encounter Summary ---
Author Organization [facility] Address [facility] [place] [address] Care Team Providers Care Learning Support Teacher Name Role Phone Reji Adams MD Primary Care Provider [phone] Encounter Details Date Type Department Care Team (Late st Contact Info) Description 11/08/2022 Orders Only Internal Medicine at [facility] [address] [place] [address] Reji Adams MD [facility] [place] [address] Social History Tobacco Use Types Packs/Day Years [...] 11:30 AM EDT Office Visit [place] [address] Charline Ziegler MD [facility] [place] [address] documented as of this encounter Visit Diagnoses Not on filedocumented in this encounter Care Teams Learning Support Teacher Relationship Specialty Start Date End Date Reji Adams MD [facility] [place] [address] PCP - General General Internal Medicine 07/13/15 documented as of this encounter
--- OUTSIDE RECORDS SUMMARY | 2024-07-09 11:07 | XMS_ITS | Encounter Summary ---
Author Organization [facility] Address [facility] [place] [address] Care Team Providers Care Survey Cad Technician Name Role Phone Reji Adams MD Primary Care Provider [phone] Encounter Details Date Type Department Care Team (Late st Contact Info) Description 10/30/2022 Orders Only Hematology [place] [address] Mike Louise MD [facility] [address] [place] [address] Prostate cancer metastatic to intrapelvic lymph node [...] AM EDT Office [place] [address] Charline Ziegler MD [facility] [place] [address] documented as of this encounter Results * Testosterone, total (07/15/2023 10:44 AM EST) [facility] Testosterone 5.15 1.93 - 7.40 ng/mL [facility] Comment: Pediatric Reference Ranges: ? [...] Stated reference ranges derived from review of [employer] Jhoanna Testosterone II 05/2022, v2.0 Blood 07/15/2023 10:4 4 AM EST 07/15/2023 10:56 AM EST Narrative Resulting Agency Comment Spec In Lab Mike Louise MD CHEMISTRY ORDERABLES [facility] [place] [address] * Comprehensive metabolic panel (non-fasting) (07/15/2023 10:44 AM EST) Glucose 84 65 - 199 mg/dL [facility] Comment:Diabetes: >=200 mg/d L plus symptoms Blood Urea Nitrogen 11 10 - 20 mg/dL [facility] Creatinine 0.97 0.80 - 1.50 mg/dL [facility] Sodium 139 135 - 145 mmol/L [facility] Potassium 4.2 3.5 - 5.0 mmol/L [facility] Comment: Please note: ??Patients with WBC >100,000 may have falsely elevated Potassium levels. ??For accurate Potassium quantification in these patients send serum separator tube (gold top) for subsequent determinations. ??Contact the Clinical Chemistry Laboratory if there are any questions. Chloride 104 98 - 107 mmol/L [facility] Carbon Dioxide 28 22 - 31 mmol/L [facility] Anion Gap 7 5 - 15 mmol/L [facility] Calcium 9.6 8.5 - 10.5 mg/dL [facility] Protein, Total 6.3 6.1 - 8.0 g/dL [facility] Albumin 4.3 3.2 - 5.2 g/dL [facility] Aspartate Aminotransferase 14 0 - 39 unit/L [facility] Alanine Aminotransferase 15 0 - 55 unit/L [facility] Alkaline Phosphatase 68 40 - 130 unit/L [facility] Bilirubin, Total 0.7 0.2 - 1.3 mg/dL [facility] Est Glomerular Filtration Rate 81 >=60 mL/min/1. 73 m?? [facility] Comment: This patient's estimated GFR [...] In Lab Mike Louise MD CHEMISTRY ORDERABLES [facility] [place] [address] * PSA (Ultrasensitive) (07/15/2023 10:44 AM EST) Prostate Specific Antigen (Ultrasensitive) <0.01 0.00 - 4.00 ng/mL [facility] Comment: PLEASE NOTE: The above [...] In Lab Mike Louise MD CHEMISTRY ORDERABLES [facility] [place] [address] * (ABNORMAL) Testosterone, total (04/09/2023 9:33 AM EDT) Testosterone <0.12(L) 1.93 - 7.40 ng/mL [facility] Comment: Pediatric Reference Ranges: ? [...] In Lab Mike Louise MD CHEMISTRY ORDERABLES [facility] [address] [place] [address] * Comprehensive metabolic panel (non-fasting) (04/09/2023 9:33 AM EDT) Glucose 90 65 - 199 mg/dL [facility] Comment:Diabetes: >=200 mg/d L plus symptoms Blood Urea Nitrogen 13 10 - 20 mg/dL [facility] Creatinine 0.92 0.80 - 1.50 mg/dL [facility] Sodium 137 135 - 145 mmol/L [facility] Potassium 4.1 3.5 - 5.0 mmol/L [facility] Comment: Please note: ??Patients with WBC >100,000 may have falsely elevated Potassium levels. ??For accurate Potassium quantification in these patients send serum separator tube (gold top) for subsequent determinations. ??Contact the Clinical Chemistry Laboratory if there are any questions. Chloride 100 98 - 107 mmol/L [facility] Carbon Dioxide 27 22 - 31 mmol/L [facility] Anion Gap 10 5 - 15 mmol/L [facility] Calcium 9.5 8.5 - 10.5 mg/dL [facility] Protein, Total 6.6 6.1 - 8.0 g/dL [facility] Albumin 4.3 3.2 - 5.2 g/dL [facility] Aspartate Aminotransferase 20 0 - 39 unit/L [facility] Alanine Aminotransferase 15 0 - 55 unit/L [facility] Alkaline Phosphatase 65 40 - 130 unit/L [facility] Bilirubin, Total 0.7 0.2 - 1.3 mg/dL [facility] Est Glomerular Filtration Rate 86 >=60 mL/min/1. 73 m?? [facility] Comment: This patient's estimated GFR [...] Louise MD CHEMISTRY ORDERABLES Performing Organization Address [facility] Co de Phone Number [facility] [place] [address] * PSA (Ultrasensitive) (04/09/2023 9:33 AM EDT) Prostate Specific Antigen (Ultrasensitive) <0.01 0.00 - 4.00 ng/mL [facility] Comment: PLEASE NOTE: The above [...] Louise MD CHEMISTRY ORDERABLES Performing Organization Address [facility] Co de Phone Number [facility] [place] [address] * (ABNORMAL) Testosterone, total (01/22/2023 10:20 AM EDT) Testosterone <0.12(L) 1.93 - 7.40 ng/mL [facility] Comment: Pediatric Reference Ranges: ? [...] In Lab Mike Louise MD CHEMISTRY ORDERABLES [facility] [place] [address] * Comprehensive metabolic panel (non-fasting) (01/22/2023 10:20 AM EDT) Glucose 88 65 - 199 mg/dL [facility] Comment:Diabetes: >=200 mg/d L plus symptoms Blood Urea Nitrogen 15 10 - 20 mg/dL [facility] Creatinine 0.93 0.80 - 1.50 mg/dL [facility] Sodium 141 135 - 145 mmol/L [facility] Potassium 4.2 3.5 - 5.0 mmol/L [facility] Comment: Please note: ??Patients with WBC >100,000 may have falsely elevated Potassium levels. ??For accurate Potassium quantification in these patients send serum separator tube (gold top) for subsequent determinations. ??Contact the Clinical Chemistry Laboratory if there are any questions. Chloride 103 98 - 107 mmol/L [facility] Carbon Dioxide 25 22 - 31 mmol/L [facility] Anion Gap 13 5 - 15 mmol/L [facility] Calcium 9.6 8.5 - 10.5 mg/dL [facility] Protein, Total 6.9 6.1 - 8.0 g/dL [facility] Albumin 4.6 3.2 - 5.2 g/dL [facility] Aspartate Aminotransferase 20 0 - 39 unit/L [facility] Alanine Aminotransferase 15 0 - 55 unit/L [facility] Alkaline Phosphatase 70 40 - 130 unit/L [facility] Bilirubin, Total 0.7 0.2 - 1.3 mg/dL [facility] Est Glomerular Filtration Rate 85 >=60 mL/min/1. 73 m?? [facility] Comment: This patient's estimated GFR [...] In Lab Mike Louise MD CHEMISTRY ORDERABLES [facility] [place] [address] * PSA (Ultrasensitive) (01/22/2023 10:20 AM EDT) Prostate Specific Antigen (Ultrasensitive) <0.01 0.00 - 4.00 ng/mL [facility] Comment: PLEASE NOTE: The above [...] In Lab Mike Louise MD CHEMISTRY ORDERABLES [facility] [place] [address] * (ABNORMAL) Testosterone, total (11/20/2022 12:55 PM EDT) Testosterone <0.03(L) 1.93 - 7.40 ng/mL [facility] Comment: Pediatric Reference Ranges: ? [...] Stated reference ranges derived from review of [employer] Johanna Testosterone II 03/2016, v6.0 Blood 11/20/2022 12:5 5 PM EDT 11/20/2022 1:16 PM EDT Narrative Resulting Agency Comment Spec In Lab Mike Louise MD CHEMISTRY ORDERABLES Performing Organization Address [facility] Co de Phone Number [facility] [place] [address] * Comprehensive metabolic panel (non-fasting) (11/20/2022 12:55 PM EDT) Glucose 108 65 - 199 mg/dL [facility] Comment:Diabetes: >=200 mg/d L plus symptoms Blood Urea Nitrogen 17 10 - 20 mg/dL [facility] Creatinine 0.88 0.80 - 1.50 mg/dL [facility] Sodium 140 135 - 145 mmol/L [facility] Potassium 4.4 3.5 - 5.0 mmol/L [facility] Comment: Please note: ??Patients with WBC >100,000 may have falsely elevated Potassium levels. ??For accurate Potassium quantification in these patients send serum separator tube (gold top) for subsequent determinations. ??Contact the Clinical Chemistry Laboratory if there are any questions. Chloride 105 98 - 107 mmol/L [facility] Carbon Dioxide 27 22 - 31 mmol/L [facility] Anion Gap 8 5 - 15 mmol/L [facility] Calcium 9.5 8.5 - 10.5 mg/dL [facility] Protein, Total 6.6 6.1 - 8.0 g/dL [facility] Albumin 4.3 3.2 - 5.2 g/dL [facility] Aspartate Aminotransferase 22 0 - 39 unit/L [facility] Alanine Aminotransferase 18 0 - 55 unit/L [facility] Alkaline Phosphatase 77 40 - 130 unit/L [facility] Bilirubin, Total 0.7 0.2 - 1.3 mg/dL [facility] Est Glomerular Filtration Rate 89 >=60 mL/min/1. 73 m?? [facility] Comment: This patient's estimated GFR [...] Louise MD CHEMISTRY ORDERABLES Performing Organization Address City/State/[facility] Co de Phone Number [facility] [place] [address] * PSA (Ultrasensitive) (11/20/2022 12:55 PM EDT) Prostate Specific Antigen (Ultrasensitive) <0.01 0.00 - 4.00 ng/mL [facility] Comment: PLEASE NOTE: The above [...] In Lab Mike Louise MD CHEMISTRY ORDERABLES [facility] [place] [address] documented in this encounter Visit Diagnoses Diagnosis 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
--- OUTSIDE RECORDS SUMMARY | 2024-07-09 11:07 | XMS_ITS | Encounter Summary ---
Author Organization [facility] [place] [address] Care Team Providers Care Communications Station Manager Name Role Phone Reji Newberry MD Primary Care Provider [phone] Reason for Visit * Reason Onset Date Comments Fatigue 10/24/2022 Encounter Details Date Type Department Care Team (Late st Contact Info) Description 10/24/2022 Telephone Internal Medicine at [address] [address] Beckie Holbrook RN Fatigue Social History Tobacco Use Types Packs/Day [...] encounter Miscellaneous Notes * Telephone Encounter - Beckie Holbrook RN - 10/24/2022 8:41 AM EDT TC to the patient: verified last name and . Patient has been experiencing fatigue for the past few weeks. Denies recent illness, fevers or SOB. Usually tries to walk daily but the last few weeks has no gas. Recently saw cardiology in [place] and is wearing a Zio Patch for palpitations. Denies increase in symptoms. Also actively being treated for cancer. No recent changes. Will have the secretaries get him in to be seen. Instructed to to the ER if any chest pain/sob or worsening of symptoms. Verbalized understanding and is in agreement. * Telephone Encounter - Beckie Holbrook RN - 10/24/2022 8:40 AM EDT Copied from [facility] #[id number]. Topic: Triage - Triage >> Oct 23, 2022 4:56 PM Daya Colby wrote: Symptom: Lack of energy, fatigue PCP: REJI NEWBERRY Additional Comments: Patient called and stated they have been experiencing lack of energy and fatigue for awhile now. This agent was unable to connect to nurse. Please call to advise. documented in this encounter Plan of Treatment Upcoming Encounters Date Type Department Care Team (Late st Contact Info) Description 12/15/2024 11:30 AM EDT Office [place] [address] Charline Ziegler MD [facility] [place] [address] documented as of this encounter Visit Diagnoses Not on filedocumented in this encounter Care Teams Communications Station Manager Relationship Specialty Start Date End Date Reji Newberry MD [facility] [place] [address] PCP - General General Internal Medicine 07/13/15 documented as of this encounter
--- OUTSIDE RECORDS SUMMARY | 2024-07-09 11:07 | XMS_ITS | Encounter Summary ---
Author Organization [facility] [place] [address] Care Team Providers Care Clinical Associate Name Role Phone Reji Adams MD Primary Care Provider Encounter Details Date Type Department Care Team (Latest Contact Info) Description 09/05/2022 Travel Social History Tobacco Use Types Packs/Day [...] 11:30 AM EDT Office [place] [address] Charline Ziegler MD [facility] [place] [address] documented as of this encounter Visit Diagnoses Not on filedocumented in this encounter Care Teams Clinical Associate Relationship Specialty Start Date End Date Reji Adams MD [facility] GENERAL INTER[place] [address] PCP - General General Internal Medicine 07/13/15 documented as of this encounter
--- OUTSIDE RECORDS SUMMARY | 2024-07-09 11:07 | XMS_ITS | Encounter Summary ---
Author Organization [facility] [place] [address] Care Team Providers Care Nuclear Weapons Custodian Name Role Phone Reji Newberry MD Primary Care Provider [phone] Encounter Details Date Type Department Care Team (Late st Contact Info) Description 10/28/2022 Refill Internal Medicine at [facility] [address], [place] [id number] Dafne Hickey RN Anxiety Social History Tobacco Use Types Packs/Day [...] Telephone Encounter - Dafne Hickey RN - 10/28/2022 11:17 AM EDT Copied [facility] #[id number]. Topic: Pharmacy Call - RX Issues >> Oct 28, 2022 11:03 AM Del Avery wrote: Rx Issues PCP: REJI NEWBERRY Reason for Call: Patient calling stating he previously requested a refill for his medication at a different pharmacy, but the pharmacy doesn't have it in stockThe patient would like the Rx sent to a new pharmacy and for the previous [id number] - [place], [place] - [address] to be removed from his account. Patient has 2 doses left. Please call to advise. Name of Medication: ALPRAZolam (Xanax) 0.25 mg tablet Name of Prescriber: REJI NEWBERRY Name of Pharmacy: [facility] Address for Pharmacy: [address] [place] [id number], City/[facility] State for Pharmacy: [place], [place] Is the Patient Currently at the Pharmacy: no documented in this encounter Plan of Treatment Upcoming Encounters Date Type Department Care Team (Late st Contact Info) Description 12/15/2024 11:30 AM EDT Office [place] [address] Charline Ziegler MD [facility] [place] [address] documented as of this encounter Visit Diagnoses Diagnosis Anxiety Anxiety state, unspecified documented in this encounter Care Teams Nuclear Weapons Custodian Relationship Specialty Start Date End Date Reji Newberry MD [facility] GENER[place] [address] PCP - General General Internal Medicine 07/13/15 documented as of this encounter
--- OUTSIDE RECORDS SUMMARY | 2024-07-09 11:07 | XMS_ITS | Encounter Summary ---
Author Organization [facility] Address [facility] [place] [address] Care Team Providers Care Advertising Sales Representative Name Role Phone Reji Adams MD Primary Care Provider [phone] Encounter Details Date Type Department Care Team (Late st Contact Info) Description 08/09/2022 Notes [place] [address] [facility] [place] [address] Social History Tobacco Use Types Packs/Day Years [...] as of this encounter Progress Notes * Tomas Falcon MD - 08/09/2022 12:57 PM EST Gregg called about right groin/hip pain in setting of untreated right superior ramus fx. I treated him with sacroplasty and L5 vertebroplasty back in April 2022. He experienced temporary pain relief at that time. We discussed treatment options including pubic ramus osteoplasty. He is interested in exploring this option. Will obtain repeat pelvic MRI to aid in decision making. documented in this encounter Plan of Treatment Upcoming Encounters Date Type Department Care Team (Late st Contact Info) Description 12/15/2024 11:30 AM EDT Office [place] [address] [facility] [place] [address] documented as of this encounter Visit Diagnoses Not on filedocumented in this encounter Care Teams Advertising Sales Representative Relationship Specialty Start Date End Date Reji Adams MD [facility] GENERAL [place] [address] PCP - General General Internal Medicine 07/13/15 documented as of this encounter
--- OUTSIDE RECORDS SUMMARY | 2024-07-09 11:07 | XMS_ITS | Encounter Summary ---
Author Organization [facility] Address [facility] [address] Care Team Providers Care Sandwich Maker Name Role Phone Reji Adams MD Primary Care Provider [phone] Reason for Referral * Diagnostic Test (Routine) - Closed Specialty Diagnoses / Procedures Referred By Contac t Referred To Contact Radiology Diagnoses Pain in right hip Sacral insufficiency fracture, sequela Procedures MRI Pelvis MSK (Bones Joints Muscles) Thad Lawson MD [facility] [place] [address] [place] [address] Referral ID Status Reason Start Date Expiration Date V isits Requested Visits Authorized [id number] Closed Specialty Service Requested 08/09/2022 02/07/2024 1 1 Reason for Visit * Diagnostic Test (Routine) - Closed Specialty Diagnoses / Procedures Referred By Contac t Referred To Contact Radiology Diagnoses Pain in right hip Sacral insufficiency fracture, sequela Procedures MRI Pelvis MSK (Bones Joints Muscles) Thad Lawson MD [facility] [place] [address] [place] [address] Referral ID Status Reason Start Date Expiration Date V isits Requested Visits Authorized [id number] Closed Specialty Service Requested 08/09/2022 02/07/2024 1 1 Encounter Details Date Type Department Care Team (Latest Contact Info) Description 08/15/2022 7:15 AM EST - 08/15/2022 11:59 PM EST [place] [address] Thad Jolley MD Pain in right hip; Sacral insufficiency fracture, sequela Discharge Disposition: Home Social History Tobacco Use [...] 11:30 AM EDT Office [place] [address] Charline Ziegler MD [facility] [place] [address] documented as of this encounter Procedures Procedure Name Priority Date/Time Associated Diagnosis Comments MRI PELVIS MSK (BONES JOINTS MUSCLES) WWO CONTRAST Routine 08/15/2022 8:49 AM EST Pain in right hip Sacral insufficiency fracture, sequela documented in this encounter Results * MRI Pelvis MSK (Bones Joints Muscles) wwo Contrast (08/15/2022 8:49 AM EST) Anatomical Region Laterality Modality Pelvis Magnetic Resonan ce Impressions 08/15/2022 9:30 AM EST 1. ??Sacroplasty material in bilateral sacral ala. 2. ??Multiple foci of nondisplaced fractures and bone bruise around sacroplasty material and in bilateral innominate bones. Findings represents any combinations of age indeterminate recurrent or residual insufficiency fractures. 3. ??Concurrent muscle strain of bilateral adductor and iliacus muscles, related to insufficiency fractures. 4. ??No tumor seen. 5. ??Bilateral total hip arthroplasties. Thank you for letting us participate in the care of this patient. ??If you are a health care provider and have any questions regarding this report, please contact the number below. ??For patients who have questions please contact the health medical care evaluation specialist that requested your imaging first. ? Narrative 08/15/2022 9:30 AM EST EXAMINATION: MRI PELVIS MSK (BONES JOINTS MUSCLES) WWO CONTRAST CLINICAL HISTORY: groin, buttuck, and lateral hip pain s/p B/L ROYAL. ??? stress fractre vs. possibel tumor pelvis bones. ??Will need MARS protocol., , entered by ordering service COMPARISON: August 06, 2022. TECHNIQUE: Pre and postcontrast MRI of the pelvis was performed. Contrast: 17 mL of Dotarem administered intravenously. FINDINGS: SOFT TISSUES: No solid or cystic soft tissue mass OSSEOUS STRUCTURES: Multiple foci of pelvic insufficiency fractures with incomplete fracture lines, bright STIR signal and contrast enhancement: Innominate bones * ??pubic bones- Dark T1 bright STIR signal in parasymphyseal marrow, more pronounced on the RIGHT. There are incomplete fracture lines, series 5 image 25-30. * ??Posterior acetabulum- incomplete fracture line surrounded by bright STIR signal, more prominent on the RIGHT series 5 image 24. * ??Acetabular roof -bilateral linear incomplete fracture line surrounded by slightly bright STIR signal, series 5 image 21. * ??Iliac crests- foci of bilateral bright STIR signal extensively involving the LEFT. Sacrum- sacroplasty material in bilateral sacral ala, surrounded by bright STIR signal representing residual or recurrent insufficiency fractures. Lumbar spine- posterior lower spine fusion and vertebroplasty are best seen on May 2022 CT exam. MUSCLES: * ??Iliacus muscles-deep fascial edema and muscle strain more prominent on the LEFT, series 6 image 12. * ??Adductor muscles-bilateral muscle strain at pubic symphysis insertion represented by linear feathery bright STIR signal in muscles around pubic symphysis stress fractures. * ??Paraspinous muscles-diffusely bright STIR signal represents muscle strain or post surgical change. * ??Gluteus minimus-symmetric muscles with over 50% fatty infiltration. TENDONS: Normal signal without displacement. HIPS: Bilateral arthroplasties are present. Complication: There is no loosening or fracture. No pseudotumor or fluid collection seen. Soft tissues of pelvis No ascites, enlarged lymph nodes mass lesion. Procedure Note Liberty Diaz MD - 08/15/2022 EXAMINATION: MRI PELVIS MSK (BONES JOINTS MUSCLES) WWO CONTRAST CLINICAL HISTORY: groin, buttuck, and lateral hip pain s/p B/L ROYAL. ?stress fractre vs. possibel tumor pelvis bones. Will need MARS protocol., ,entered by ordering service COMPARISON: August 06, 2022. TECHNIQUE: Pre and postcontrast MRI of the pelvis was performed. Contrast: 17 mL of Dotarem administered intravenously. FINDINGS: SOFT TISSUES: No solid or cystic soft tissue mass OSSEOUS STRUCTURES: Multiple foci of pelvic insufficiency fractures with incomplete fracturelines, bright STIR signal and contrast enhancement: Innominate bones * pubic bones- Dark T1 bright STIR signal in parasymphyseal marrow, more pronounced onthe RIGHT. There are incomplete fracture lines, series 5 image 25-30. * Posterior acetabulum- incomplete fracture line surrounded by bright STIR signal, more prominenton the RIGHT series 5 image 24. * Acetabular roof -bilateral linear incomplete fracture line surroundedby slightly bright STIR signal, series 5 image 21. * Iliac crests- foci of bilateral bright STIR signal extensively involving the LEFT. Sacrum- sacroplasty material in bilateral sacral ala, surrounded by bright STIRsignal representing residual or recurrent insufficiency fractures. Lumbar spine- posterior lower spine fusion and vertebroplasty are bestseen on May 2022 CT exam. MUSCLES: * Iliacus muscles-deep fascial edema and muscle strain more prominent onthe LEFT, series 6 image 12. * Adductor muscles-bilateral muscle strain at pubic symphysis insertion represented by linear feathery bright STIR signal in muscles aroundpubic symphysis stress fractures. * Paraspinous muscles-diffusely bright STIR signal represents musclestrain or post surgical change. * Gluteus minimus-symmetric muscles with over 50% fatty infiltration. TENDONS: Normal signal without displacement. HIPS: Bilateral arthroplasties are present. Complication: There is no loosening or fracture. No pseudotumor or fluid collection seen. Soft tissues of pelvis No ascites, enlarged lymph nodes mass lesion. IMPRESSION 1. Sacroplasty material in bilateral sacral ala. 2. Multiple foci of nondisplaced fractures and bone bruise aroundsacroplasty material and in bilateral innominate bones. Findings represents anycombinations of age indeterminate recurrent or residual insufficiency fractures. 3. Concurrent muscle strain of bilateral adductor and iliacus muscles,related to insufficiency fractures. 4. No tumor seen. 5. Bilateral total hip arthroplasties. Thank you for letting us participate in the care of this patient. If youare a health care provider and have any questions regarding this report,please contact the number below. For patients who have questions please contactthe health medical care evaluation specialist that requested your imaging first. Thad Jolley MD [facility] ORDERABLES documented in this encounter Visit Diagnoses Diagnosis Pain in right hip Pain in joint, pelvic region and thigh Sacral insufficiency fracture, sequela documented in this encounter Administered Medications Inactive Administered Medications - up to 3 most recent administrations Medication Order MAR Action Action Date Dose Rate Site gadoterate meglumine (Dotarem) (0.5 mMol/mL) injection solution 0-100 mL 0-100 mL, Intravenous, ONCE PRN, 1 dose, Starting on Alice 08/15/22 at 0837, Until Alice 08/15/22 at 0837, Per Protocol, Radiology Contrast, Routine Given 08/15/2022 8:37 AM EST 17 mLs documented in this encounter Care Teams Sandwich Maker Relationship Specialty Start Date End Date Reji Adams MD [facility] GENERAL [place] [address] PCP - General General Internal Medicine 07/13/15 documented as of this encounter
--- OUTSIDE RECORDS SUMMARY | 2024-07-09 11:07 | XMS_ITS | Encounter Summary ---
Author Organization [facility] Address [facility] [place] [address] Care Team Providers Care Tariff Counsel Name Role Phone Reji Adams MD Primary Care Provider [phone] Encounter Details Date Type Department Care Team (Late st Contact Info) Description 08/13/2022 Orders [place] [address] Tressa Ivory, DIRECTOR OF CLINICAL TRIALS [facility] [place] [address] Closed fracture of right pubis, unspecified portion of pubis, initial encounter; Closed nondisplaced fracture of pubis, unspecified laterality, initial encounter Social History Tobacco Use Types Packs/Day Years [...] 11:30 AM EDT Office [place] [address] Charline Ziegler MD [facility] [address] documented as of this encounter Visit Diagnoses Diagnosis Closed fracture of right pubis, unspecified portion of pubis, initial encounter Closed nondisplaced fracture of pubis, unspecified laterality, initial encounter documented in this encounter Care Teams Tariff Counsel Relationship Specialty Start Date End Date Reji Adams MD [facility] [place] [address] PCP - General General Internal Medicine 07/13/15 documented as of this encounter
--- OUTSIDE RECORDS SUMMARY | 2024-07-09 11:07 | XMS_ITS | Encounter Summary ---
Author Organization [facility] Address [facility] [place] [address] Care Team Providers Care Computer Programming Supervisor Name Role Phone Reji Adams MD Primary Care Provider Encounter Details Date Type Department Care Team (Late st Contact Info) Description 08/23/2022 Telephone [place] [id number] Mahsa Krueger MD [facility] [place] [address] Social History Tobacco Use Types Packs/Day Years [...] Miscellaneous Notes * Telephone Encounter - Mahsa Krueger MD - 08/23/2022 7:20 PM EST Received land acquisition manager page and returned call to patient. Notes that his constipation continues to be an issue. Took a glycerin suppository this afternoon but did not help, of note just had surgery yesterday. He wonders about doing an enema as well, the same day as the suppository - wonders if okay to doboth. He does not have abd pain or any lower extremity weakness. We discussed it is okay to do enema and could even try additional suppository, as well as his scheduled miralax and bisacodyl. Discussed it is a bit of trial and error to see what works, but not harmful to try enemas after doing a suppository. He will try tap water enema and will call back if any other issues. documented in this encounter Plan of Treatment Upcoming Encounters Date Type Department Care Team (Late st Contact Info) Description 12/15/2024 11:30 AM EDT Office Visit [place] [address] Charline Ziegler MD [facility] [place] [address] documented as of this encounter Visit Diagnoses Not on filedocumented in this encounter Care Teams Computer Programming Supervisor Relationship Specialty Start Date End Date Reji Adams MD [facility] GENERAL INTERNAL [facility] [place] [address] PCP - General General Internal Medicine 07/13/15 documented as of this encounter
--- OUTSIDE RECORDS SUMMARY | 2024-07-09 11:07 | XMS_ITS | Encounter Summary ---
Author Organization [facility] Address [facility] [place] [address] Care Team Providers Care Sed Middle School Teacher Name Role Phone Reji Adams MD Primary Care Provider [phone] Reason for Visit * Reason Onset Date Comments Medication Refill 08/11/2022 Encounter Details Date Type Department Care Team (Late st Contact Info) Description 08/11/2022 Refill Internal Medicine at [address] [address] Reji Adams MD [facility] [place] [address] Anxiety Social History Tobacco Use Types Packs/Day [...] 11:30 AM EDT Office [place] [address] Charline Ziegler MD [facility] [place] [address] documented as of this encounter Visit Diagnoses Diagnosis Anxiety Anxiety state, unspecified documented in this encounter Care Teams [employer] Teacher Relationship Specialty Start Date End Date Reji Adams MD [facility] [place] [address] PCP - General General Internal Medicine 07/13/15 documented as of this encounter
--- OUTSIDE RECORDS SUMMARY | 2024-07-09 11:07 | XMS_ITS | Encounter Summary ---
Author Organization [facility] [place] [address] Care Team Providers Care Manager Heavy Duty Name Role Phone Reji Newberry MD Primary Care Provider [phone] Encounter Details Date Type Department Care Team (Late st Contact Info) Description 09/02/2022 Telephone Internal Medicine at [address] [address] Dafne Hickey, RN Social History [...] Telephone Encounter - Dafne Hickey RN - 09/02/2022 12:57 PM EST Copied from [facility] #[id number]. Topic: Patient Request - Referral Request >> Sep 02, 2022 11:46 AM Sowmya Valdez wrote: Referral Request. PCP: REJI NEWBERRY Patient called in regards to his referral request for Dr. Delgado at Gastroenterology located at [facility]. Patient mentions that he called the facility this morning and was informed the office never received the referral. Patient is asking if the referral could be sent again. Deborah cunha call back to assist/advise. documented in this encounter Plan of Treatment Upcoming Encounters Date Type Department Care Team (Late st Contact Info) Description 12/15/2024 11:30 AM EDT Office Visit [place] [address] Charline Ziegler MD [facility] [place] [address] documented as of this encounter Visit Diagnoses Not on filedocumented in this encounter Care Teams Manager Heavy Duty Relationship Specialty Start Date End Date Reji Newberry MD [facility] [place] [address] PCP - General General Internal Medicine 07/13/15 documented as of this encounter
--- OUTSIDE RECORDS SUMMARY | 2024-07-09 11:07 | XMS_ITS | Encounter Summary ---
Author Organization [place] [address] Care Team Providers Care Equine Vet Name Role Phone Reji Adams MD Primary Care Provider Reason for Visit * Reason Comments Establish Care RIGHT HIP PAIN, NO I NJURY 2nd Opinion PH BILAT TOTAL HIP ([place]) * Consultation (Routine) - Closed Specialty Diagnoses / Procedures Referred By Contac t Referred To Contact Orthopaedics Diagnoses Other instability, right hip Pain in right hip Zurdo Daniel MD [address] [place] [address] [facility] [address] [place] [phone] Referral ID Status Reason Start Date Expiration Date V isits Requested Visits Authorized [id number] Closed Consult, Test & Treat PCP Updated and/or Approved 06/12/2022 06/12/2023 6 6 Encounter Details Date Type Department Care Team (Late st Contact Info) Description 08/06/2022 1:40 PM EST Office Visit Orthopaedics at [address] [phone] Thad Jolley MD History of total replacement [...] Sign Reading Time Taken Comments Blood Pressure 134/82 08/06/2022 1:32 PM EST Pulse 69 08/06/2022 1:32 PM EST Temperature - - Respiratory Rate - - Oxygen Saturation - - Inhaled Oxygen Concentration - - Weight 88.5 kg (195 lb) 08/06/2022 1:32 PM EST Height 179.1 cm (5' 10.5) 08/06/2022 1:32 PM ES T reported Body Mass Index 27.58 08/06/2022 1:32 PM EST documented in this encounter Progress Notes * Jay Khan MD - 08/06/2022 1:40 PM EST Images from the original note were not included. Department of Orthopaedics Division of Adult Joint Reconstructive Surgery ARTHROPLASTY HISTORY/PREVIOUS HIP SURGERY: 1. 04/11/2020 Bilateral THAs ([place]) 2. 2005ish Right TKA ([facility]) Subjective: Ken Mckeon is a 76 y.o. male who presents with right hip pain. He underwent b/l ROYAL in 2019 anddid really well after surgery until December of 2021. Right hip pain started while walking without any traumatic episode. The pain has progressed since December 2021 and is localized to the right groin, buttock, and thigh. There is some radiation along the medial thigh and somewhat into the back. He describes pain with any type of hip flexion. This has worsened with any type of activity and sometimes around 9/10 in severity. He has undergone b/l greater trochanteric bursal corticosteroid injections with no improvement. If anything, he believes the right hip pain has worsened since the injection. He wa s also found to have sacral insufficiency fractures treated with sacroplasty/vertebroplasty. Some of his pain in his lower back did improve after his sacroplasty. However, his hip, groin, and buttockpain has since progressed to the point where he is now not even walking across the distance of his house. He has to use a walker or cane at all times. He has significant difficulty getting up from a seated position. He limits any type of active hip flexion due to increased groin pain. I did review his documentation from [facility] and the orthopedic group there. He does have a procedure scheduled for later this month involving endoscopic bursectomy of the greater trochanteric area alongwith iliotibial band lengthening. The patient was diagnosed with prostate cancer dating back to 2018 and has since undergone treatment with radiation as well as androgen suppression therapy. As a consequence, he has regular sweats/hot flashes. He denies any recent fevers or chills. He denies any chest pain or dyspnea. He does have history of constipation that seems to be improving somewhat. He has not had any workup to rule out infection yet. REVIEW OF SYSTEMS: Negative except stated in the HPI He does not endorse a history of DVT/PE or clotting disorder. QUESTIONNAIRE RESPONSES: General Health, Prior Treatments, PreExisting Condition, Health Habits, About You 08/05/2022 PROMIS-10 General Health Good PROMIS-10 Quality of Life Good PROMIS-10 Physical Health Good PROMIS-10 Mental Health Excellent PROMIS-10 Social Activity Excellent PROMIS-10 Everyday Activities A little PROMIS-10 Pain 8 PROMIS-10 Fatigue Moderate PROMIS-10 Social Roles Good PROMIS-10 Anxious or Depressed Rarely PROMIS PHYSICAL SCORE (range 16-68) 34.9 PROMIS MENTAL SCORE (range 21-68) 56 Treatments Tried Heat and ice therapy, Walking aids (e.g.cane, walker), Acetaminophen (e.g. Tylenol), Other injections or needle procedures, Prior surgery for this problem Prior Surgery Bi-lateral hip replacement / bi-lateral cortisone hip injections much later Alzheimers or dementia No Cirrohosis or liver disease No HIV/AIDS No Pain in more than one joint in legs Yes Back or neck pain Yes Heart attack No Heart failure No Unclog/bypass leg arteries No Stroke, blood clot, TIA No Asthma No Emphysema, chronic bronchities, or COPD No Stomach ulcers/peptic ulcer disease No Diabetes No Poor kidney function No Rheumatic condtions No Cancer Yes Cancer spread Yes Leukemia or polycythemia vera No Lymphoma No Weight (lbs) 194 Height (feet) 5 feet Height (Inches) 10 BMI 27.83 (Overweight) Ever used tobacco products Yes Tobacco frequency - WHO - Tobacco Advice Incomplete Ever used alcoholic beverages - Alcohol frequency - WHO - Alcohol Advice - Live Alone - Marital situation - Schooling - Combined Household Income - Health Literacy - Orthopeadics [facility] Response 06/26/2017 APD HOOS Total Score - APD KOOS Total Score - ASES VAS-RIGHT - ASES VAS-LEFT 5 ASES ADL-RIGHT ARM - ASES ADL-LEFT ARM 28 ASES RIGHT ARM - ASES LEFT ARM 71.66 Spine [facility] Response 08/14/2014 Neck (NDI) Score 28 (Mild disability) ALLERGIES Allergies Allergen Reactions ??? Penicillins Anaphylaxis Tongue swelling ??? Betamethasone hiccups after injection ??? Dexamethasone Hiccups after injection ??? Triamcinolone Acetonide Hiccups Allergies to metals: none. SOCIAL HISTORY: reports that he has never smoked. His smokeless tobacco use includes chew. He reports that he does not currently use alcohol. He reports that he does not use drugs. Occupation: retired SIGNIFICANT MEDICAL COMORBIDITIES: Patient Active Problem List Diagnosis Code ??? 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 Cataract extraction status of left eye Z98.42 ??? OA (osteoarthritis) of knee M17.9 ??? Anxiety F41.9 ??? Neck pain M54.2 ??? Insomnia G47.00 ??? Cervical radiculopathy M54.12 ??? Depression F32.A ??? Back pain M54.9 ??? Cervical stenosis of spinal canal M48.02 ??? Peripheral neuropathy G62.9 ??? Urinary urgency R39.15 ??? Right arm numbness R20.0 ??? Asymmetrical sensorineural hearing loss H90.3 ??? Chronic left shoulder pain M25.512, G89.29 ??? 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 Trigger finger, left ring finger M65.342 ??? S/P rotator cuff repair Z98.890 ??? Malignant neoplasm of prostate C61 ??? 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 PSVT (paroxysmal supraventricular tachycardia) I47.1 ??? RBBB I45.10 ??? Venous insufficiency of both lower extremities I87.2 ??? Varicose veins of both lower extremities with pain I83.813 ??? Sacral insufficiency fracture M84.48XA ??? Pure hypercholesterolemia E78.00 Objective: There were no vitals taken for this visit. General : alert, appears stated age and cooperative Gait: Antalgic. The patient can bear weight on the injured extremity. I have made the following determinations: Hip Exam: Right Prior surgery on this joint: Yes Leg length: Longer leg: equal Limb Length discrepancy: 0cm Motion: Flexion contracture: 0-5 Total degrees of Flexion:95 Total degrees of Abduction:20 Total degrees of Ext Rotation: 35 Total degrees of Internal Rotation: 10 at 90 deg of flex Gait Abnormality: Antalgic and slow shuffling steps Skin Integrity: Normal, incision healed Pulses Palpable: Right PT: Yes Right DP:Yes Motor/Sensory: Right Distal Motor: Normal Distal Sensory: Normal Hip Abductors: 4+ TTP over greater trochanter Trendelenburg test: unable to perform due to hip pain I have made the following determinations: Hip Exam: Left Prior surgery on this joint:Yes Leg Length: Longer leg: equal Limb Length discrepancy: 0cm Motion: Flexion contracture: 0 Total degrees of Flexion: 100 Total degrees of Abduction: 20 Total degrees of Ext Rotation: 35 Total degrees of Internal Rotation: 20 Gait Abnormality: Antalgic Skin Integrity: Normal incision well healed Pulses Palpable: Left PT: Yes Left DP: Yes Motor/Sensory: Left Distal Motor: Normal Distal Sensory: Normal Hip Abductors: 5-/5 Mild TTP over greater trochanter Trendelenburg test: unable to test due to hip pain and need for cane Imaging: I personally reviewed multiple imaging including CT lumbar spine, MRI of lumbar spine, bone scan ofthe pelvis and proximal femurs, MRI of the hip plain and radiographs of the abdomen/pelvis. The bone scan shows increased uptake in the area of right acetabulum. Plain radiographs of the AP abdomen and pelvis do not show any obvious abnormalities. The CT abdomen pelvis does not show any significantuncoverage of the acetabular cups. MRI of the right hip shows slight increase and fluid around the greater trochanter and possible insertion of the glutes max. MRI of the lumbar spine shows mild to moderate central stenosis at T11-T12, otherwise there is no significant or obvious stenosis. Assessment: Mr. Mckeon is a very pleasant 76-year-old gentleman who unfortunately has progressive right hip pain after bilateral hip total arthroplasty performed on 2019. Plan: The patient has complicated history, but his right hip pain seems to be progressive without any true improvement with multiple modalities of treatment. While he does have some greater trochanteric tenderness to palpation, this would not describe or explain his groin pain and buttock pain. Bone scanis concerning for increased uptake of the right acetabular cup. This could be suggestive of loosening. Any loosening at this time would be concerning for an indolent or late infection. He does not have any inflammatory marker labs that would rule out an infection as of yet. At this time, we would like to proceed with plain radiographs of the AP pelvis and lateral bilateral hips as well as CBC with differential along with ESR and CRP. If laboratory markers are elevated we will pursue fluoroscopic guided aspiration of the right hip. If laboratory markers are within normal limits we will discussthis patient with our arthroplasty team to determine what the next appropriate steps would be. We had a thorough discussion with the patient regarding our recommendation and plan and all questions were answered. The patient is amenable with obtaining labs, plain radiographs, and following up after we receive the results. Plan to call the patient with results. Further plan pending labs. Jay Khan MD documented in this encounter Plan of Treatment Upcoming Encounters Date Type Department Care Team (Late st Contact Info) Description 12/15/2024 11:30 AM EDT Office [place] [address] Charline Ziegler MD [facility] [place] [address] documented as of this encounter Results * XR Pelvis and [...] have questions please contact the health rn wound care that requested your imaging first. ? Narrative [...] patients who have questions please contactthe health rn wound care that requested your imaging first. Thad Jolley MD IMG DX ORDERABLES * Sedimentation rate (08/06/2022 2:39 PM EST) Sedimentation Rate Automated 8 0 - 15 mm/hr [facility] Blood 08/06/2022 2:39 PM EST 08/06/2022 2:39 PM EST Narrative Resulting Agency Comment Spec In Lab Thad Jolley MD HEMATOLOGY ORDERABLE S Performing Organization Address City/[facility]/ZIP Co de Phone Number [facility] [address] [place] [address] * CRP, acute inflammation (08/06/2022 2:39 PM EST) C-Reactive Protein 3.0 <=4.9 mg/L [facility] Blood 08/06/2022 2:39 PM EST 08/06/2022 2:39 PM EST Narrative Resulting Agency Comment Spec In Lab Thad Jolley MD CHEMISTRY ORDERABLES Performing Organization Address [facility] Co de Phone Number [facility] [address] [place] [address] documented in this encounter Visit Diagnoses Diagnosis History of total replacement of both hip joints Pain in right hip Pain in joint, pelvic region and thigh History of total replacement of both hip joints documented in this encounter Care Teams Equine Vet Relationship Specialty Start Date End Date Reji Adams MD [facility] GENERAL [place] [address] PCP - General General Internal Medicine 07/13/15 documented as of this encounter
--- OUTSIDE RECORDS SUMMARY | 2024-07-09 11:07 | XMS_ITS | Encounter Summary ---
Author Organization [facility] Address [facility] [place] [address] Care Team Providers Care Administrative Assistant Name Role Phone Reji Adams MD Primary Care Provider [phone] Reason for Referral * Consultation (Routine) - Closed Specialty Diagnoses / Procedures Referred By Duglas t Referred To Contact Endocrinology Diagnoses Sacral insufficiency fracture, sequela Thad Jolley MD [facility] [place] [address] Rafat Puckett MD [facility] [place] [address] Referral ID Status Reason Start Date Expiration Date V isits Requested Visits Authorized [id number] Closed Consult, Test & Treat 08/27/2022 08/27/2023 1 1 Encounter Details Date Type Department Care Team (Late st Contact Info) Description 08/27/2022 Orders [place] [phone] Thad Jolley MD Sacral insufficiency fracture, sequela [...] AM EDT Office [place] [address] Charline Ziegler MD [facility] [place] [address] Scheduled Referrals Name Type Priority Associated Diagnoses Orde r Schedule Referral to Endocrinology Outpatient Referral Routine Sacral insufficiency fracture, sequela Ordered: 08/27/2022 documented as of this encounter Visit Diagnoses Diagnosis Sacral insufficiency fracture, sequela documented in this encounter Care Teams Administrative Assistant Relationship Specialty Start Date End Date Reji Adams MD [facility] [place] [address] PCP - General General Internal Medicine 07/13/15 documented as of this encounter
--- OUTSIDE RECORDS SUMMARY | 2024-07-09 11:07 | XMS_ITS | Encounter Summary ---
Author Organization [facility] Address [facility] [place] [address] Care Team Providers Care Client Reporting Associate Name Role Phone Reji Adams MD Primary Care Provider [phone] Reason for Visit * Consultation (Routine) - Closed Specialty Diagnoses / Procedures Referred By Duglas t Referred To Contact Endocrinology Diagnoses Sacral insufficiency fracture, sequela Thad Jolley MD [facility] [place] [address] Robin Colon MD [facility] [place] [address] Referral ID Status Reason Start Date Expiration Date V isits Requested Visits Authorized [id number] Closed Consult, Test & Treat 08/27/2022 08/27/2023 1 1 Encounter Details Date Type Department Care Team (Late st Contact Info) Description 09/06/2022 10:00 AM EST Office Visit [place] [address] Robin Colon MD [facility] [place] [address] Osteoporosis, unspecified osteoporosis type, unspecified pathological fracture [...] Sign Reading Time Taken Comments Blood Pressure 133/80 09/06/2022 10:05 AM EST Pulse 67 09/06/2022 10:05 AM EST Temperature 36 ??C (96.8 ??F) 09/06/2022 10:05 AM EST Respiratory Rate - - Oxygen Saturation 98% 09/06/2022 10:05 AM EST Inhaled Oxygen Concentration - - Weight 85.1 kg (187 lb 9.6 oz) 09/06/2022 10:05 AM EST Height 177.8 cm (5' 10) 09/06/2022 10:05 AM EST Body Mass Index 26.92 09/06/2022 10:05 AM EST documented in this encounter Progress Notes * Robin Colon MD - 09/06/2022 10:00 AM EST Images from the original note were not included. Division of Endocrinology Date of Visit: 09/06/2022 Patient Name: Ken Mckeon : 1945 PCP: Reji Adams MD Reason for Referral We are asked to consult on Mr Ken Mckeon 76yo man with L5 and sacral fx by Dr. Jolley. On MRI he also has fx T6,7,8,9. Pt does not know how fx happened, he was walking and pain kept getting worse, no falls. Is s/p vertebroplasty 04/2022 which helped pain some. He has prostate cancer on Lupron, abiraterone and prednisone 5mg daily for last 12 month. On that PSA 0.14 05/2022 bone scan did not show metastatic process. Other risk factors for fracture/osteoporosis are: [] [...] 101-200 mg [x] 201-300 mg from MVI [] 301-400 mg [] 401-500 mg [x] 501-600 mg from food but makes him very constipated [] 601-700 mg [] 701-900 mg [] 901-1100 mg [] 9708-6631 mg [] 6785-8408 mg [] Above 1500 mg Medications: Current Outpatient Medications on File Prior to Visit Medication Sig Dispense Refill ??? ALPRAZolam (Xanax) 0.25 mg Tablet Take 1 tablet by mouth 3 times daily as needed for Anxiety. 90 tablet 0 ??? pravastatin (Pravachol) 20 mg Tablet Take 1 tablet by mouth daily. 90 tablet 3 ??? celecoxib (CeleBREX) 100 mg Capsule Take 100 mg by mouth as needed. ??? leuprolide, 3 month, (Eligard) Syringe Inject 1 mg subcutaneously. ??? abiraterone (Zytiga) 250 mg Tablet Take 1,000 mg by mouth daily. ??? predniSONE (Deltasone) 5 mg Tablet Take 5 mg by mouth daily. ??? leuprolide, 3 month, (Eligard) Syringe Inject 22.5 mg subcutaneously once. ??? tadalafiL (CIALIS) 5 mg Tablet Take 5 mg by mouth as needed for Erectile Dysfunction. ??? acetaminophen (TYLENOL) 650 mg Tablet Sustained Release Take 650 mg by mouth every 8 hours as needed for Pain. Do not exceed 6 tabs in 24 hours ??? aspirin 81 mg Tablet, Delayed Release (E.C.) Take 81 mg by mouth daily. ??? multivitamin (THERAGRAN) tablet Take 1 tablet by mouth daily. ??? MALCOLM EXTRACT ORAL Take by mouth. No current facility-administered medications on file prior to visit. [x] Yes [] No Glucocorticoid dose. When first prescribed? [] Yes [x] No Cyclosporine dose. When first prescribed? [] Yes [x] No Phenobarbital and phenytoin. When first prescribed? [] Yes [x] No Rosiglitazone, pioglitazone. When first prescribed? [] Yes [x] No PPI. When first prescribed? [] Yes [x] No SSRI. When first prescribed? [] Yes [x] No Thiaizdes, loop diuretics. When first prescribed? [] Yes [x] No Estrogens, testosterone. When first prescribed? [] Yes [x] No Calcitonin. When first prescribed? [] Yes [x] No Aromatase inhibitors (breast CA). When first prescribed? [x] Yes [] No Androgen deprivation therapy (prostate CA). When first prescribed? [] Yes [x] No Alendronate, risedronate, ibandronate. When first prescribed? PMH: Patient Active Problem List Diagnosis Code ??? [...] fracture M84.48XA ??? Pure hypercholesterolemia E78.00 ??? Pain in right hip M25.551 ??? 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 Pre-op testing Z01.818 Allergy: Allergies Allergen Reactions ??? Penicillins Anaphylaxis Tongue swelling ??? Betamethasone hiccups after injection ??? Dexamethasone Hiccups after injection ??? Triamcinolone Acetonide Hiccups Family History Problem Relation Age of Onset ??? Cancer Mother bone ??? Diabetes Father ??? Cancer Father testicular Social History Socioeconomic History ??? Marital status: [...] Stability: Not on file Physical Examination: BP 133/80 Pulse 67 Temp 36 ??C (96.8 ??F) Ht 177.8 cm (5' 10) Wt 85.1 kg (187 lb 9.6 oz) SpO2 98% BMI 26.92 kg/m?? Spine: without kyphosis, without pain on palpation. Patient able to stand up without assistance butslowly, walks with poon Skin: no dominique face, acne, supraclavicular fat pads, Appearance: well hydrated, well nourished, oriented x 3, in nad. Labs 07/2022 HCT 39.6 06/2022 Chem 7 in good range 05/2021 TFTs in good range 12/2020 PSA 0.14 Assessment and Plan 1. S/p many no trauma fractures/osteoporosis/prostate cancer on ADT/prednisone: His risk of future fractures are increased. A. As patient's Ca intake is 80 mg from food and MVI, and pt isn't on PPI. Will provide patient with list of Ca rich foods. Will get PTH and 24h urine Ca to see what it is. B. Patient also doesn't have Vitamin D done; goal is 30 ng/ml and above. Will check 25, Vit D now, per him MVI has 1600IUs. C. Will order BMD by DXA now D. If 25 Vit D, PTH and 24h urine Ca at good range will treat with either zolendronic acid or denosumab 60 mg SQ q 6 month. Anabolic agents are contraindicated. E. I will schedule patient for outpatient visit at 12 weeks. Thank you for allowing me to participate in the care of this very pleasant patient. I spend 60min in chart review, xrays, CT, labs, discussing his prostate cancer treatments to osteoporosis and writing my note. Sincerely, Robin Colon MD Professor of Endocrinology documented in this encounter Plan of Treatment Upcoming Encounters Date Type Department Care Team (Late st Contact Info) Description 12/15/2024 11:30 AM EDT Office Visit Gastroenterology at [facility] [place] [address] Charline Ziegler MD [facility] [place] [address] documented as of this encounter Procedures Procedure Name Priority Date/Time Associated Diagnosis Comments HC PARATHYROID HORMONE(PTH INTACT Routine 09/06/2022 10:57 AM EST Osteoporosis, unspecified osteoporosis type, unspecified pathological fracture presence HC VENIPUNCTURE Routine 09/06/2022 10:57 AM EST Malignant neoplasm of prostate HC VITAMIN D TOTAL-25 HYDROXY Routine 09/06/2022 10:57 AM EST Osteoporosis, unspecified osteoporosis type, unspecified pathological fracture presence HC CALCIUM, SERUM Routine 09/06/2022 10: 57 AM EST Osteoporosis, unspecified osteoporosis type, unspecified [...] COLON Study: Bone densitometry was performed. Model: Horizon A (S/N [id number]) SW version 13.6.0.5 Exam Date: January 07, 2023 Accession number: [id number] Bone Density: Region ? BMD ?T-score ??Z-score [...] who have questions please contact the health caretaker that requested your imaging first. ? Narrative 01/07/2023 10:45 PM EDT EXAMINATION: DXA [...] COLON Study: Bone densitometry was performed. Model: Lumexis A (S/N [id number]) SW version 13.6.0.5 Exam Date: January 07, 2023 Accession number: [id number] Bone Density: Region BMD T-score Z-score AP [...] patients who have questions please contactthe health caretaker that requested your imaging first. Robin Colon MD IMG DEXA ORDERABLES * (ABNORMAL) Calcium, urine, 24 hour (09/09/2022 6:43 AM EST) Ca Concentration, U24 14.9 mg/dL [facility] Calcium, 24 Hour Urine 409.8(H) 50.0 - 300.0 mg/24hr [facility] Comment:Reference Range: 50. 0-300.0 mg/24 hour based on diet. Urine 09/09/2022 6:43 AM EST 09/09/2022 10:10 AM EST Narrative Resulting Agency Comment Spec In Lab Robin Colon MD URINE ORDERABLES Performing Organization Address [facility] Co de Phone Number [facility] [place] [address] * Creatinine, urine, 24 hour (09/09/2022 6:43 AM EST) Cre Concentration, U24 45 mg/dL [facility] Creatinine, 24 Hour Urine 1.24 1.00 - 2.40 g/24hr [facility] Urine 09/09/2022 6:43 AM EST 09/09/2022 10:10 AM EST Narrative Resulting Agency Comment Spec In Lab Robin Colon MD URINE ORDERABLES Performing Organization Address [facility] Co de Phone Number [facility] [place] [address] * PSA Screen (09/06/2022 10:57 AM EST) PSA Screen <0.01 0.00 - 4.00 ng/mL [facility] Comment: PLEASE NOTE: The above reference interval is intended for healthy males with an intact prostate. Values within this reference interval may indicate recurrence in men who have undergone radical prostatectomy. This result was generated using a Tung Johanna immunoassay. ??Results obtained from other methods or manufacturers cannot be used interchangeably with this method. Blood 09/06/2022 10:5 7 AM EST 09/06/2022 11:02 AM EST Narrative Resulting Agency Comment Spec In Lab Robin Colon MD CHEMISTRY ORDERABLES Performing Organization Address [facility] Co de Phone Number [facility] [place] [address] * Calcium (09/06/2022 10:57 AM EST) Calcium 9.5 8.5 - 10.5 mg/dL [facility] Blood 09/06/2022 10:5 7 AM EST 09/06/2022 11:02 AM EST Narrative Resulting Agency Comment Spec In Lab Robin Colon MD CHEMISTRY ORDERABLES Performing Organization Address City/[facility]/ZIP Co de Phone Number [facility] [place] [address] * (ABNORMAL) PTH (09/06/2022 10:57 AM EST) Parathyroid Hormone 72(H) 15 - 65 pg/mL [facility] Blood 09/06/2022 10:5 7 AM EST 09/06/2022 11:02 AM EST Narrative Resulting Agency Comment Spec In Lab Robin Colon MD CHEMISTRY ORDERABLES Performing Organization Address [facility] Co de Phone Number [facility] [place] [address] * Vitamin D, 25-Hydroxy (09/06/2022 10:57 AM EST) Vitamin D Total 25 OH 51 21 - 100 ng/mL [facility] Vit D Interp Sufficient [facility] Blood 09/06/2022 10:5 7 AM EST 09/06/2022 11:02 AM EST Narrative Resulting Agency Comment Spec In Lab Robin Colon MD CHEMISTRY ORDERABLES Performing Organization Address City/[facility] Co de Phone Number [facility] [place] [address] documented in this encounter Visit Diagnoses Diagnosis Osteoporosis, unspecified osteoporosis type, unspecified pathological fracture presence Malignant neoplasm of prostate Osteoporosis, unspecified osteoporosis type, unspecified pathological fracture presence documented in this encounter Care Teams Client Reporting Associate Relationship Specialty Start Date End Date Reji Adams MD [facility] GENERAL [place] [address] PCP - General General Internal Medicine 07/13/15 documented as of this encounter
--- OUTSIDE RECORDS SUMMARY | 2024-07-09 11:07 | XMS_ITS | Encounter Summary ---
Author Organization [facility] [place] [address] Care Team Providers Care Coin Purse Assembler Name Role Phone Reji Adams MD Primary Care Provider [phone] Encounter Details Date Type Department Care Team (Latest Contact Info) Description 08/14/2022 Travel Social History Tobacco Use Types Packs/Day [...] 11:30 AM EDT Office [place] [address] Charline Ziegler MD [facility] [place] [address] documented as of this encounter Visit Diagnoses Not on filedocumented in this encounter Care Teams Coin Purse Assembler Relationship Specialty Start Date End Date Reji Adams MD [facility] GENERAL [place] [address] PCP - General General Internal Medicine 07/13/15 documented as of this encounter
--- OUTSIDE RECORDS SUMMARY | 2024-07-09 11:07 | XMS_ITS | Encounter Summary ---
Author Organization [facility] Address [facility] [place] [address] Care Team Providers Care Tailoring Teacher Name Role Phone Reji Adams MD Primary Care Provider [phone] Reason for Referral * Diagnostic Test (Routine) - Closed Specialty Diagnoses / Procedures Referred By Duglas arizmendi Referred To Contact Radiology Diagnoses Pain in right hip Sacral insufficiency fracture, sequela Procedures MRI Pelvis MSK (Bones Joints Muscles) wwo Contrast Thad Jolley MD [facility] [place] [address] [place] [address] Referral ID Status Reason Start Date Expiration Date V isits Requested Visits Authorized [id number] Closed Specialty Service Requested 08/09/2022 02/07/2024 1 1 Encounter Details Date Type Department Care Team (Late st Contact Info) Description 08/09/2022 Telephone [place] [address] Thad Jolley MD Social History [...] Telephone Encounter - Thad Jolley MD - 08/09/2022 2:01 PM EST Discussed by phone patient's lab results and recent x-rays. We also reviewed his case at her indication joint conference. At this point his inflammatory markers are normal suggestive no real potential infection. His x-rays do not show any loosening of the acetabular femoral component. I was clear with him at this point and not entirely clear what his symptoms are related to. I did discuss with him that I do think that this is possibly related to stress fractures or tumor related to his prior metastatic disease and I think obtaining a new MRI with metal suppression would be reasonable. I discussed if he did have the areas of either stress reactions or stress fractures that we could potentially treat these with percutaneous pelvic fixation with Dr. Mandel. He is also discussed with Dr. Falcon possibility of cement augmentation of the pubic bone. Patient will undergo the MRI and I will contact him with this as an performed. * Telephone Encounter - Thad Jolley MD - 08/09/2022 2:01 PM EST ----- Message from Rama Drake RN sent at 08/08/2022 1:12 PM EST ----- Regarding: FW: Plan B options? Contact: ----- Message ----- From: Ken Mckeon Sent: 08/08/2022 9:41 AM EST To: [facility] Subject: Plan B options? Justin Jolley, To my very uneducated mind it appears the X-Rays and blood work failed to show anything noteworthy.While I am thankful there is no sign of infection and no breaks or fractures my problems persist. I'm back to using my walker as of Friday. Perhaps the stretching, etc. Friday prompted the change but who knows. Might there be more options to try and determine the causes(s) of my pain and instability? MRI perhaps? Thank you for any input you can provide. Gregg Mckeon documented in this encounter Plan of Treatment Upcoming Encounters Date Type Department Care Team (Late st Contact Info) Description 12/15/2024 11:30 AM EDT Office [place] [address] Charline Ziegler MD [facility] [place] [address] documented as of this encounter Results * MRI Pelvis MSK [...] who have questions please contact the health director of home care hospice that requested your imaging first. ? Narrative 08/15/2022 9:30 AM EST EXAMINATION: MRI PELVIS MSK (BONES JOINTS MUSCLES) WWO CONTRAST CLINICAL HISTORY: groin, buttuck, and lateral hip pain s/p B/L ROYLA. ??? stress fractre vs. possibel tumor pelvis [...] patients who have questions please contactthe health director of home care hospice that requested your imaging first. Thad Jolley MD IMG MRI ORDERABLES documented in this encounter Visit Diagnoses Diagnosis Pain in right hip Pain in joint, pelvic region and thigh Sacral insufficiency fracture, sequela Pain in right hip Pain in joint, pelvic region and thigh Sacral insufficiency fracture, sequela documented in this encounter Care Teams Tailoring Teacher Relationship Specialty Start Date End Date Reji Adams MD [facility] [place] [address] PCP - General General Internal Medicine 07/13/15 documented as of this encounter
--- OUTSIDE RECORDS SUMMARY | 2024-07-09 11:07 | XMS_ITS | Encounter Summary ---
Author Organization [facility] [place] [address] Care Team Providers Care Electron Beam Machine Welder Setter Name Role Phone Reji Adams MD Primary Care Provider [phone] Encounter Details Date Type Department Care Team (Latest Contact Info) Description 08/06/2022 Travel Social History Tobacco Use Types Packs/Day [...] 11:30 AM EDT Office [place] [address] Charline Ziegler MD [facility] [place] [address] documented as of this encounter Visit Diagnoses Not on filedocumented in this encounter Care Teams Electron Beam Machine Welder Setter Relationship Specialty Start Date End Date Reji Adams MD [facility] GENER[place] [address] PCP - General General Internal Medicine 07/13/15 documented as of this encounter
--- OUTSIDE RECORDS SUMMARY | 2024-07-09 11:07 | XMS_ITS | Encounter Summary ---
Author Organization [facility] Address [facility] [place] [address] Care Team Providers Care Cider Maker Name Role Phone Reji Adams MD Primary Care Provider [phone] Reason for Visit * Reason Onset Date Comments Medication Refill 10/23/2022 Encounter Details Date Type Department Care Team (Late st Contact Info) Description 10/23/2022 Refill Internal Medicine at [address] [address] Reji Adams MD [facility] GENERAL [place] [address] Anxiety Social History Tobacco Use Types Packs/Day [...] 11:30 AM EDT Office Visit [place] [address] Charline Ziegler MD [facility] [place] [address] documented as of this encounter Visit Diagnoses Diagnosis Anxiety Anxiety state, unspecified documented in this encounter Care Teams Cider Maker Relationship Specialty Start Date End Date Reji Adams MD [facility] GENERAL [place] [address] PCP - General General Internal Medicine 07/13/15 documented as of this encounter
--- OUTSIDE RECORDS SUMMARY | 2024-07-09 11:07 | XMS_ITS | Encounter Summary ---
Author Organization [facility] Address [facility] [place] [address] Care Team Providers Care Branch Logistics Supervisor Name Role Phone Reji Adams MD Primary Care Provider [phone] Encounter Details Date Type Department Care Team (Late st Contact Info) Description 08/31/2022 Telephone [place] [address] Charline Ziegler MD [facility] DR [place]STROENTER[place] [address] Social History Tobacco Use Types Packs/Day Years [...] encounter Miscellaneous Notes * Telephone Encounter - Charline Ziegler - 08/31/2022 10:21 AM EST Received on-call page to return call to patient. Briefly, this is a 76M known to GI clinic, PMHx OA, insomnia, prostate Ca s/p prostatectomy (2019), chronic constipation. He calls today with ongoing constipation. New straining with BRBPR yesterday; recent scope notable for internal hemorrhoids. No large clots or lightheadedness. Wondering if he can use a suppository with bleeding. Reassurance provided; may see more blood with use but would ultimately improve his condition; would in fact favor a tap water enema since his symptoms appear worse. Patient's questions answered. Charline Ziegler MD Gastroenterology PGY-6 08/31/2022 10:24 AM Pager #[phone] documented in this encounter Plan of Treatment Upcoming Encounters Date Type Department Care Team (Late st Contact Info) Description 12/15/2024 11:30 AM EDT Office Visit [place] [address] Charline Ziegler MD [facility] [place] [address] documented as of this encounter Visit Diagnoses Not on filedocumented in this encounter Care Teams Branch Logistics Supervisor Relationship Specialty Start Date End Date Reji Adams MD [facility] GENERAL [place] [address] PCP - General General Internal Medicine 07/13/15 documented as of this encounter
--- OUTSIDE RECORDS SUMMARY | 2024-07-09 11:07 | XMS_ITS | Encounter Summary ---
Author Organization [facility] [place] [address] Care Team Providers Care Machinist General Name Role Phone Reji Adams MD Primary Care Provider [phone] Encounter Details Date Type Department Care Team (Latest Contact Info) Description 11/10/2022 Travel Social History Tobacco Use Types Packs/Day [...] 11:30 AM EDT Office [place] [address] Charline Ziegler MD [facility] [place] [address] documented as of this encounter Visit Diagnoses Not on filedocumented in this encounter Care Teams Machinist General Relationship Specialty Start Date End Date Reji Adams MD [facility] [place] [address] PCP - General General Internal Medicine 07/13/15 documented as of this encounter
--- OUTSIDE RECORDS SUMMARY | 2024-07-09 11:07 | XMS_ITS | Encounter Summary ---
Author Organization [facility] Address [facility] [place] [address] Care Team Providers Care Research Laboratory Technician Name Role Phone Reji Adams MD Primary Care Provider [phone] Reason for Visit * Reason Onset Date Comments Groin Pain 08/09/2022 Gregg called abo ut right groin/hip pain in setting of untreated right superior ramus fx. I treated him with sacroplasty and L5 vertebroplasty back in April 2022. He experienced temporary pain relief at that time. We discussed treatment options including pubic ramus osteoplasty. He is interested in exploring this option. Will obtain repeat pelvic MRI to aid in decision making. Encounter Details Date Type Department Care Team (Late st Contact Info) Description 08/09/2022 [place] [id number] Tomas Falcon MD [facility] [place] [address] Groin Pain (Gregg called about right groin/hip pain in setting of untreated right superior ramus fx. I treated him with sacroplasty and L5 vertebroplasty back in April 2022. He experienced temporary pain relief at that time. We discussed treatment options including pubic ramus osteoplasty. He is interested in exploring this option. Will obtain repeat pelvic MRI to aid in decision making. ) Social History Tobacco Use Types Packs/Day [...] 11:30 AM EDT Office [place] [address] Charline Ziegler MD [facility] [address] documented as of this encounter Visit Diagnoses Not on filedocumented in this encounter Care Teams Research Laboratory Technician Relationship Specialty Start Date End Date Reji Adams MD [facility] [place] [address] PCP - General General Internal Medicine 07/13/15 documented as of this encounter
--- OUTSIDE RECORDS SUMMARY | 2024-07-09 11:07 | XMS_ITS | Encounter Summary ---
Author Organization [facility] [place] [address] Care Team Providers Care Steel Wheel Engraver Name Role Phone Reji Adams MD Primary Care Provider Encounter Details Date Type Department Care Team (Latest Contact Info) Description 08/20/2022 Travel Social History Tobacco Use Types Packs/Day [...] 11:30 AM EDT Office [place] [address] Charline Ziegler MD [facility] [place] [address] documented as of this encounter Visit Diagnoses Not on filedocumented in this encounter Care Teams Steel Wheel Engraver Relationship Specialty Start Date End Date Reji Adams MD [facility] GENER[facility] [place] [address] PCP - General General Internal Medicine 07/13/15 documented as of this encounter
--- OUTSIDE RECORDS SUMMARY | 2024-07-09 11:07 | XMS_ITS | Encounter Summary ---
Author Organization [facility] [place] [address] Care Team Providers Care Major Assembly Inspector Name Role Phone Reji Adams MD Primary Care Provider [phone] Encounter Details Date Type Department Care Team (Late st Contact Info) Description 08/27/2022 Telephone [place] [address] Kalee Cervantes, RN Social History Tobacco Use Types Packs/Day [...] encounter Miscellaneous Notes * Telephone Encounter - Kalee Cervantes RN - 08/27/2022 2:19 PM EST TC from pt who requests call back to discuss if it is okay to do enema, 1 hr after placing suppository. Called pt and left message requesting that pt return call to office. Msg left on pt identified voice mail. documented in this encounter Plan of Treatment Upcoming Encounters Date Type Department Care Team (Late st Contact Info) Description 12/15/2024 11:30 AM EDT Office [place] [address] Charline Ziegler MD [facility] [address] documented as of this encounter Visit Diagnoses Not on filedocumented in this encounter Care Teams Major Assembly Inspector Relationship Specialty Start Date End Date Reji Adams MD [facility] [place] [address] PCP - General General Internal Medicine 07/13/15 documented as of this encounter
--- OUTSIDE RECORDS SUMMARY | 2024-07-09 11:07 | XMS_ITS | Encounter Summary ---
Author Organization [facility] [place] [address] Care Team Providers Care Tire Vulcanizer Name Role Phone Reji Adams MD Primary Care Provider [phone] Encounter Details Date Type Department Care Team (Latest Contact Info) Description 10/24/2022 Travel Social History Tobacco Use Types Packs/Day [...] 11:30 AM EDT Office [place] [address] Charline Ziegler MD [facility] [place] [address] documented as of this encounter Visit Diagnoses Not on filedocumented in this encounter Care Teams Tire Vulcanizer Relationship Specialty Start Date End Date Reji Adams MD [facility] GENERAL [place] [address] PCP - General General Internal Medicine 07/13/15 documented as of this encounter
--- OUTSIDE RECORDS SUMMARY | 2024-07-09 11:07 | XMS_ITS | Encounter Summary ---
Author Organization [facility] Address [facility] [place] [address] Care Team Providers Care Refrigeration System Installer Name Role Phone Reji Adams MD Primary Care Provider [phone] Reason for Visit * Reason Comments Follow-up Pt. Is doing well Encounter Details Date Type Department Care Team (Late Contact Info) Description 08/20/2022 11:30 AM EST Office [place] [address] Savanah Hernandez APRN [facility] [place] [address] SNHL (sensory-neural hearing loss), asymmetrical Social History Tobacco Use Types Packs/Day Years [...] - - Weight 88 kg (194 lb) 08/20/2022 11:23 AM EST Height 177.8 cm (5' 10) 08/20/2022 11:23 AM EST Body Mass Index 27.84 08/20/2022 11:23 AM EST documented in this encounter Progress Notes * Savanah Hernandez APRN - 08/20/2022 11:30 AM EST Otolaryngology Note Date of Visit: 08/20/2022 Location of Visit: Otolaryngology Clinic, [facility] Chief Complaint: Gregg is a 76 year old with a hx of sudden hearing loss on the left. He was last seen on 08/20/2021. Here for a recheck after audio. HPI: this was copied from Savanah GARCIA note on 08/20/2021 Gregg is a 75 year old with the above history here for an evaluation after an audio was done today.. He noticed a drop in his hearing on the left yesterday.He has had a buzzing in the left ear off and on. He has had this in the past. He does feel his hearing has improved since yesterday. He denies any vertigo but does have some dizziness. He is on Lupron and there is a possibility of dizziness with that medication. He has had several previous audio evaluations in the past that show asymmetry L > R. He has had loud noise exposure in the past. He denies any recent noise trauma. His mother has a hx of significant hearing loss. With the asymmetry of hearing he has been evaluated several years ago by for this. An MRI of the brain was done on 04/30/2017 which showed no acoustic neuroma. He does have a hx of having hiccups when he takes Dexamethasone/and or Betamethasone. New issues since last visit: Gregg is here for a recheck. He is not aware of an improvement in his hearing. He still has some buzzing in both of his ears. No true vertigo issues. He does not feel he needs hearing aids. No new exposure to loud noise. Past Medical History: Other then above, see list Medications: see list Allergies: see list Physical Examination: General: Age-appropriate interactive behavior in no acute distress. Face: Symmetric without dysmorphic features. Ears: Auricles symmetric bilaterally without lesions noted. External auditory canals are clear. On the left, tympanic membrane is clear. Middle ear is well aerated. On the right tympanic membrane is clear. Middle ear is well aerated. Nose: Patent anteriorly; mucosa without lesions. Septum without significant deviation. Mouth: Lips and gingiva pink, moist, without lesions. Dentition healthy. Tongue and floor of mouth soft without lesions or masses. Hard palate without lesions. Pharynx: Soft palate without lesions; uvula intact without evidence of submucus cleft palate. Oropharynx symmetric. Neck: No lymphadenopathy. Neuro: CN III-XII grossly intact. Audio: Asymmetrical SNH L > R. Thresholds have improved on the left. Back to Baseline 2019 levels. 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 Plan: Hearing continues to be asymmetrical but has returned to baseline. Monitor for any changes. Recheck audio in a year. F/u in ENT with any new issues. Savanah GARCIA [facility] Otolaryngology-Head and Neck Surgery [place], [place] [address] documented in this encounter Plan of Treatment Upcoming Encounters Date Type Department Care Team (Late st Contact Info) Description 12/15/2024 11:30 AM EDT Office [place] [address] Charline Ziegler MD [facility] [place] [address] documented as of this encounter Visit Diagnoses Diagnosis SNHL (sensory-neural hearing loss), asymmetrical Sensorineural hearing loss, asymmetrical documented in this encounter Care Teams Refrigeration System Installer Relationship Specialty Start Date End Date Reji Adams MD [facility] GENERAL [place] [address] PCP - General General Internal Medicine 07/13/15 documented as of this encounter
--- OUTSIDE RECORDS SUMMARY | 2024-07-09 11:08 | XMS_ITS | Encounter Summary ---
Author Organization [facility] Address [facility] [place] [address] Care Team Providers Care Materials Management Clerk Name Role Phone Reji Adams MD Primary Care Provider [phone] Encounter Details Date Type Department Care Team (Latest Contact Info) Description 07/26/2022 2:12 PM EST - 07/26/2022 5:01 PM [facility] Encounter [place] [address] May Riojas MD [facility] [place] [address] Discharge Disposition: Home Social History Tobacco Use [...] Sign Reading Time Taken Comments Blood Pressure 125/69 07/26/2022 4:30 PM EST Pulse 59 07/26/2022 4:10 PM EST Temperature 36.1 ??C (96.9 ??F) 07/26/2022 2:30 PM ES T Respiratory Rate 14 07/26/2022 4:10 PM EST Oxygen Saturation 100% 07/26/2022 4:30 PM EST Inhaled Oxygen Concentration - - Weight 83 kg (183 lb) 07/26/2022 2:30 PM EST Height - - Body Mass Index 25.52 05/22/2022 1:01 PM EDT documented in this encounter Discharge Instructions * Discharge Instructions* Eusebia Ordoñez RN - 07/26/2022 4:48 PM EST Colonoscopy What to expect after the procedure You may feel a little more gassy or bloated than usual. This is normal. You should expect the return of normal bowel function in the 2 to 3 days. Activity Because of the sedation that you received your judgement and reaction time are effected Go home and rest quietly for the remainder of the day. You may resume your normal activities tomorrow. Change from one position to the next slowly. You may lose your balance unexpectedly Be careful on stairs, as you may be unsteady on your feet FOR THE NEXT [address] OR OPERATE ANY MACHINERY DO NOT DRINK ALCOHOLIC BEVERAGES DO NOT SIGN LEGAL DOCUMENTS If you are a smoker: DO NOT SMOKE WHILE YOU ARE ALONE Diet Start by eating small portions of foods that ordinarily will not upset your stomach . Avoid gas producing foods for the next few days Be gentle with what you choose to start with Drink plenty of fluids ( unless your doctor has told you not to). IV SITE-- slight redness, or tenderness is normal. You can use warm compresses if you become concerned. If the tenderness +/or redness increases or foul drainage and a red streak occurs, please contact your PCP immediately When shoud you call for help? Call 911 anytime you think you may need emergency care. For example If you pass out ( loss of consciousness) If you pass maroon or bloody stools If you have severe belly pain Call your doctor now or seek immediate medical care If your stools are black and tarlike If your stools have streaks of blood, but you did not have a biopsy or any polyps removed If you have belly pain, or your belly is swollen and firm If you vomit If you have a fever If you are very dizzy Watch closely for changes in your health, and be sure to contact your doctor if you have any problems Your doctor will let you know when you will need your next colonoscopy. The results of your test and your risk for colorectal cancer will help your doctor decide how often you need to be checked. Friday-Friday Same Day Endo [phone] 7a-8p Otherwise contact [phone] and ask to speak to the dry pan operator ethylbenzene converter operator Follow up care is a enrique part of your treatment and safety. Be sure to make and go to all appointments, and call your doctor if you are having problems. Discharge instructions reviewed with patient who expresses understanding documented in this encounter Medications at Time [...] needed for Anxiety. 90 tablet 07/14/2022 08/11/2022 methylPREDNISolone (MEDROL DOSPACK) 4 mg Tablets, Dose Pack Use as directed on product package. 21 tablet 05/29/2022 08/06/2022 celecoxib (CeleBREX) 100 mg Capsule Take 100 mg by mouth as needed. 02/11/2022 11/08/2022 leuprolide, 3 month, (Eligard) Syringe Inject 1 mg subcutaneously. 08/06/2021 11/08/2022 abiraterone (Zytiga) 250 mg Tablet Take 1,000 mg by mouth daily. 01/03/2022 11/26/2022 predniSONE (Deltasone) 5 mg Tablet Take 5 mg by mouth daily. 01/02/2022 11/26/2022 leuprolide, 3 month, (Eligard) Syringe Inject 22.5 mg subcutaneously once. 03/17/2023 pravastatin (Pravachol) 20 mg Tablet Take 1 tablet by mouth daily. 90 tablet 3 08/19/2021 08/05/2022 tadalafiL (CIALIS) 5 mg Tablet Take 5 mg by mouth as needed for Erectile Dysfunction. 03/17/2023 MALCOLM EXTRACT ORAL Take by mouth. 11/09/19 aspirin 81 mg Tablet, Delayed Release (E.C.) Take 81 mg by mouth daily. 03/17/2023 documented as of this encounter H&P Notes * May Riojas MD - 07/26/2022 3:11 PM EST Patient Name: Ken Mckeon Patient Age: 76 y.o. Birthdate: 1945 Admit date: 07/26/2022 Attending Physician: May Riojas MD Gastroenterology and Hepatology Pre-Procedure History and Physical Exam Procedure: Colonoscopy: Indication: Pt reports increasing constipation since 04/2022 with 10 lbs weight loss Patient Active Problem List Diagnosis Code ??? 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 Pure hypercholesterolemia E78.00 EXAM: HEENT: Airway examined, oropharynx clear Mallampati Score: II (soft palate, uvula, fauces visible) LUNGS: Clear to auscultation HEART: Regular rate and rhythm, normal S1, S2 ABDOMEN: Normal bowel sounds, soft, non tender, non distended, A/P Proceed with the planned endoscopic procedure. ASA 2 - Patient with mild systemic disease with no functional limitations Sedation Plan: moderate (conscious sedation) Risks and benefits of the procedure explained to the patient. Consent signed. documented in this encounter Plan of Treatment Upcoming Encounters Date Type Department Care Team (Late st Contact Info) Description 12/15/2024 11:30 AM EDT Office Visit [place] [address] Charline Ziegler MD [facility] [place] [address] documented as of this encounter Procedures Procedure Name Priority Date/Time Associated Diagnosis Comments Colonoscopy, Diagnostic (27739) 07/26/2022 3:24 PM EST Procedure: Colonoscopy Indication: Constipation, abdominal pain Sedation: IVCS Timeframe: within non-urgent Specific provider: first available OV needed: No Anticoagulation status: no documented anticoagulation use COLONOSCOPY Routine 07/26/2022 2:52 PM EST documented in this encounter Results * COLONOSCOPY (07/26/2022 2:52 PM EST) [facility] Signature COLONOSCOPY [facility] Endoscopy Procedure Date: 07/26/2022 2:52 PM ? Patient Name: Ken Mckeon ? N: [id number] ? Date of : 1945 ? Age: 76 ? Order #: [id number] ? Instrument Name: [id number] ? Procedure: ? Colonoscopy Indications: ? Constipation Providers: ? May Riojas MD, Geraldo Noriega ? Dayna Gonzalez MD: ?Reji Adams MD Medicines: ? Fentanyl 250 [...] ? was evaluated using the BBPS ? (Media Bowel Preparation Scale) ? with scores of: [...] Adams MD GENERAL SURGICAL ORD ERABLES [employer] documented in this encounter Visit Diagnoses Not on filedocumented in this encounter Administered Medications Inactive Administered Medications - up to 3 most recent administrations Medication Order MAR Action Action Date Dose Rate Site lactated ringers infusion 100 mL/hr, Intravenous, CONTINUOUS, Starting on Fri07/26/22 at 1445, Until Fri07/26/22 at 1648, Day of Surgery (Day of Procedure) New Bag 07/26/2022 2:45 PM EST 100 mL/hr 100 mL/hr documented in this encounter Active and Recently Administered Medications Times are shown in EST. Continuous Medication Order 07/24/2022 07/25/2022 07/26/2022 lactated ringers infusion (CANCELED) 100 mL/hr, Intravenous, CONTINUOUS, Starting on Fri07/26/22 at 1445, Until Fri07/26/22 at 1648, Day of Surgery (Day of Procedure) 1445 (New Bag - Prov ider: Priti Hearn RN) PRN Medication Order 07/24/2022 07/25/2022 07/26/2022 fentaNYL (pf) (50 mcg/mL) multi-dose injection (CANCELED) ONCE PRN, Starting on Fri07/26/22 at 1533, Until Fri07/26/22 at 1901, Intra-Operative (Intra-Procedure), Routine 1533 (Given - Provid er: Geraldo Gonzalez RN)1536 (Given - Provider: Geraldo Gonzalez RN)1540 (Given - Provider: Geraldo Gonzalez RN)1548 (Given - Provider: Geraldo Gonzalez RN)1552 (Given - Provider: Geraldo Gonzalez RN) midazolam (pf) (Versed) (1 mg/mL) multi-dose injection (CANCELED) ONCE PRN, Starting on Fri07/26/22 at 1533, Until Fri07/26/22 at 1901, Intra-Operative (Intra-Procedure), Routine 1533 (Given - Provid er: Geraldo Gonzalez RN)1536 (Given - Provider: Geraldo Gonzalez RN)1540 (Given - Provider: Geraldo Gonzalez RN)1543 (Given - Provider: Gearldo Gonzalez RN)1549 (Given - Provider: Geraldo Gonzalez RN)1553 (Given - Provider: Geraldo Gonzalez RN) documented in this encounter Care Teams Materials Management Clerk Relationship Specialty Start Date End Date Reji Adams MD [facility] [place] [address] PCP - General General Internal Medicine 07/13/15 documented as of this encounter
--- OUTSIDE RECORDS SUMMARY | 2024-07-09 11:08 | XMS_ITS | Encounter Summary ---
Author Organization [facility] Address [facility] [place] [address] Care Team Providers Care Displayer Merchandise Name Role Phone Reji Adams MD Primary Care Provider [phone] Reason for Visit * Reason Comments Constipation Encounter Details Date Type Department Care Team (Late st Contact Info) Description 07/01/2022 2:00 PM EST Office [place] [address] Usha Youssef PA [facility] [place] [address] Right lower quadrant pain Social History Tobacco Use Types Packs/Day Years Used Date Smoking Tobacco: Never Smokeless Tobacco: Current Chew Comments:3 cans/ week. Alcohol Use Standard Drinks/Week Comments Yes 0 (1 standard drink = 0.6 oz pur e alcohol) 1 drink per month Overall Financial Resource Strain (CARDIA) Answe r [...] Sign Reading Time Taken Comments Blood Pressure 125/73 07/01/2022 2:09 PM EST Pulse 71 07/01/2022 2:09 PM EST Temperature 36.8 ??C (98.2 ??F) 07/01/2022 2:09 PM ES T Respiratory Rate 16 07/01/2022 2:09 PM EST Oxygen Saturation 99% 07/01/2022 2:09 PM EST Inhaled Oxygen Concentration - - Weight 88.5 kg (195 lb) 07/01/2022 2:09 PM EST Height - - Body Mass Index 27.2 05/22/2022 1:01 PM EDT documented in this encounter Progress Notes * Usha Youssef PA - 07/01/2022 2:00 PM EST General Internal Medicine Access Clinic Visit Evaluation today was performed: [] Telehealth - Video [] Telehealth - Telephone [] By video conference [x] In-person PPE used during in-person evaluation: [] Gloves [] Gown [] Goggles [] Face-shield [x] Level 2 mask [] N-95 [] [id number] [] PAPR Subjective: Ken Mckeon is a 76 y.o. male a patient of Reji Adams MD with a history of OA, anxiety, insomnia, cervical radiculopathy, peripheral neuropathy, arthritis, malignant neoplasm of prostate, RBBB, presents to the access clinic today for: constipation Chief Complaint Patient presents with ??? Constipation ?? Has been going on for a while. Has been taking metamucil. BMs are very small. About 4 days ago BMs stopped. Past two days took senna which helped a little. This morning started getting right low side pain into the RLQ, went away after half hour. It then returned when he was vacuuming. It comes in waves and is very intense. Exertion seems to bring it on (vaccuming, bending, making the bed). No blood in stool, fevers, nausea, vomiting. Is not in pain right now. Last normal BM was 3 weeks ago. Had a small BM this morning. ROS: see above Objective: Visit Vitals BP 125/73 (BP Location (NBP): Right arm, Patient Position: Sitting, BP Cuff Sizes: Adult (25-34 cm)) Pulse 71 Temp 36.8 ??C (98.2 ??F) (Temporal) Resp 16 Wt 88.5 kg (195 lb) SpO2 99% BMI 27.20 kg/m?? BP Readings from Last 3 Encounters: 07/01/22 125/73 05/22/22 (!) 109/95 03/12/22 107/59 Wt Readings from Last 3 Encounters: 07/01/22 88.5 kg (195 lb) 05/22/22 90.3 kg (199 lb) 03/12/22 90 kg (198 lb 6.4 oz) Physical Exam Constitutional: Appearance: Normal appearance. Abdominal: General: There is no distension. Palpations: There is no mass. Tenderness: There is abdominal tenderness (RLQ). There is no right CVA tenderness, left CVA tenderness, guarding or rebound. Hernia: No hernia is present. Neurological: General: No focal deficit present. Mental Status: He is alert and oriented to person, place, and time. Psychiatric: Mood and Affect: Mood normal. Behavior: Behavior normal. Recent Results (from the past 24 hour(s)) Urinalysis with reflex Culture Specimen: Clean Catch Urine Result Value Ref Range Glucose UA Negative Negative mg/dL Protein UA Negative Negative mg/dL Bilirubin UA Negative Negative mg/dL Urobilinogen UA Normal Normal mg/dL pH UA 6.5 5.0 - 8.0 Blood UA Negative Negative mg/dL Ketones UA 15 (A) Negative mg/dL Nitrite UA Negative Negative Leukocytes UA Negative Negative mcL Appearance UA Cloudy (A) Clear Spec Crowell UA 1.015 1.005 - 1.030 Color UA Yellow Yellow Culture Reflexed No Hemogram Result Value Ref Range WBC 5.1 4.0 - 9.5 x10(3)/mcL RBC 4.33 (L) 4.58 - 5.54 x10(6)/mcL Hemoglobin 13.5 (L) 13.7 - 16.5 g/dL Hematocrit 38.9 (L) 40.5 - 48.5 % MCV 89.8 82.9 - 93.1 fL MCH 31.2 27.5 - 32.1 pg MCHC 34.7 32.0 - 35.7 g/dL Platelets 186 145 - 357 x10(3)/mcL RDWSD 44.8 36.0 - 45.0 fL RDWCV 13.5 11.4 - 13.8 % MPV 9.1 7.6 - 12.9 fL nRBC % Auto 0.0 % nRBC Abs Auto 0.000 0.000 - 0.000 x10(3)/mcL Differential, Automated Result Value Ref Range Neutrophils % 74.7 % Neutr Abs (ANC) 3.81 1.70 - 6.10 x10(3)/mcL Lymphocytes % 17.6 % Lymphocytes Abs 0.9 0.9 - 3.2 x10(3)/mcL Monocytes % 5.9 % Monocyte Abs 0.3 0.3 - 0.9 x10(3)/mcL Eosinophils % 1.0 % Eosinophils Abs 0.0 0.0 - 0.4 x10(3)/mcL Basophils % 0.6 % Basophils Abs 0.0 0.0 - 0.1 x10(3)/mcL Immature Gran % 0.20 % Mahsa Gran Abs 0.01 0.00 - 0.04 x10(3)/mcL FINDINGS: Patient status post bilateral sacral plasty and L5 vertebral plasty. In the region of vertebral plasty there is a linear metallic focus as well. Clinical correlation recommended. There are bilateral total hip arthroplasties. There is severe degenerative change in the spine and bony demineralization. There is no free air. Stool is seen throughout the colon however I do not see distention of the rectum. There is no evidence of obstruction. Assessment and Plan: I discussed the following diagnosis/diagnoses and differential diagnoses in detail with Mr. Mckeon, including treatment options and he agrees with the plan outlined below. 1. Right lower quadrant pain - Differential includes cystitis, nephrolithiasis, gastroparesis, appendicitis. UA and labs WNL, infectious process, nephrolithiasis unlikely. KUB shows stool throughout colon without obstruction. Recommend daily miralax. RTC if no improvement. - CBC (with Diff); Future - Comprehensive metabolic panel (non-fasting); Future - Lipase; Future - XR Abdomen Flat & Upright; Future - Urinalysis with reflex Culture; Future - Mr. Mckeon was given the necessary information on his condition and instructed to return to clinic if symptoms continue or worsen and to follow-up with Reji Adams MD for chronic management as needed. - An After Visit Summary was either printed and given to the patient or provided via the patient portal. -Total time on date of encounter: 40 minutes including as necessary: [x] Preparing to see pt, review of tests [] Obtaining and/or reviewing separately obtained history (eg, outside records, caregiver) [x] Counseling and educating the patient/family/caregiver [] Referring and communicating with other health day care home provider [x] Documenting clinical information in the electronic or other health record [] Independently interpreting results [] Care coordination documented in this encounter Plan of Treatment Upcoming Encounters Date Type Department Care Team (Late st Contact Info) Description 12/15/2024 11:30 AM EDT Office [place] [address] Charline Ziegler MD [facility] [place] [address] documented as of this encounter Results * (ABNORMAL) Urinalysis with reflex Culture (07/01/2022 3:07 PM EST) Glucose, Urine Dipstick Negative Negative mg/dL [facility] Protein, Urine Dipstick Negative Negative mg/dL [facility] Bilirubin, Urine Dipstick Negative Negative mg/dL [facility] Comment: Clinical correlation required for positive Urine Bilirubin results as false positive may occur with some drugs and drug related products. If a false positive is suspected a serum total bilirubin should be considered if clinically indicated. Urobilinogen, Urine Dipstick Normal Normal mg/dL [facility] pH, Urn (dipstick) 6.5 5.0 - 8.0 [facility] Blood, Urine Dipstick Negative Negative mg/dL [facility] Ketone, Urine Dipstick 15(A) Negative mg/dL [facility] Nitrite, Urine Dipstick Negative Negative [facility] Leukocytes, Urine Dipstick Negative Negative mcL [facility] Appearance, Urine Dipstick Cloudy(A) Clear [facility] Specific Crowell Urine Automated 1.015 1.005 - 1.030 [facility] Color, Urine Dipstick Yellow Yellow [facility] Reflex to Culture No [facility] Clean Catch Urine 07/01/2022 3:07 PM EST 07/01/2022 3:17 PM EST Narrative Resulting Agency Comment Spec In Lab Geraldo Tenorio MD URINE ORDERABLES Performing Organization Address [facility] de Phone Number [facility] [place] [address] * Lipase (07/01/2022 3:07 PM EST) Lipase 32 0 - 60 unit/L [facility] Blood 07/01/2022 3:07 PM EST 07/01/2022 3:18 PM EST Narrative Resulting Agency Comment Spec In Lab Geraldo Tenorio MD CHEMISTRY ORDERABLES Performing Organization Address [facility] de Phone Number [facility] [place] [address] * Comprehensive metabolic panel (non-fasting) (07/01/2022 3:07 PM EST) Glucose 99 65 - 199 mg/dL [facility] Comment:Diabetes: >=200 mg/d L plus symptoms Blood Urea Nitrogen 16 10 - 20 mg/dL [facility] Creatinine 0.90 0.80 - 1.50 mg/dL [facility] Sodium 143 135 - 145 mmol/L [facility] Potassium 4.1 3.5 - 5.0 mmol/L [facility] Comment: Please note: ??Patients with WBC >100,000 may have falsely elevated Potassium levels. ??For accurate Potassium quantification in these patients send serum separator tube (gold top) for subsequent determinations. ??Contact the Clinical Chemistry Laboratory if there are any questions. Chloride 105 98 - 107 mmol/L [facility] Carbon Dioxide 28 22 - 31 mmol/L [facility] Anion Gap 10 5 - 15 mmol/L [facility] Calcium 9.2 8.5 - 10.5 mg/dL [facility] Protein, Total 6.6 6.1 - 8.0 g/dL [facility] Albumin 4.3 3.2 - 5.2 g/dL [facility] Aspartate Aminotransferase 23 0 - 39 unit/L [facility] Alanine Aminotransferase 14 0 - 55 unit/L [facility] Alkaline Phosphatase 84 40 - 130 unit/L [facility] Bilirubin, Total 0.8 0.2 - 1.3 mg/dL [facility] Est Glomerular Filtration Rate 89 >=60 mL/min/1. 73 m?? [facility] Comment: This patient's estimated [...] and symptoms in addition to eGFR. Blood 07/01/2022 3:07 PM EST 07/01/2022 3:18 PM EST Narrative Resulting Agency Comment Spec In Lab Geraldo Tenorio MD CHEMISTRY ORDERABLES [facility] [place] [address] * XR Abdomen Flat & Upright (07/01/2022 2:51 PM EST) Anatomical Region Laterality Modality Abdomen N/A Digital Radiogra phy Impressions 07/01/2022 2:56 PM EST 1. Status post bilateral sacral plasty and L5 vertebral plasty with a metallic linear density seen along the LEFT side of the vertebral plasty. 2. Bilateral total hip arthroplasty. 3. Demineralization and degenerative change in the spine. 4. Air seen in large and small bowel and there is stool throughout most of the colon however the rectum is not distended. Thank you for letting us participate in the care of this patient. ??If you are a health care provider and have any questions regarding this report, please contact the number below. ??For patients who have questions please contact the health acute care certified nursing assistant that requested your imaging first. ? Electronically signed by: Maria Victoria Villafana MD, [facility] ([phone]), at 07/01/2022 2:56 PM Narrative 07/01/2022 2:56 PM EST EXAMINATION: XR ABDOMEN FLAT AND UPRIGHT CLINICAL HISTORY: ? constipation TECHNIQUE: Supine and upright abdomen, 4 images COMPARISON: CT from 02/04/2020 FINDINGS: Patient status post bilateral sacral plasty and L5 vertebral plasty. In the region of vertebral plasty there is a linear metallic focus as well. Clinical correlation recommended. There are bilateral total hip arthroplasties. There is severe degenerative change in the spine and bony demineralization. There is no free air. Stool is seen throughout the colon however I do not see distention of the rectum. There is no evidence of obstruction. Procedure Note Maria Victoria Villafana MD - 07/01/2022 EXAMINATION: XR ABDOMEN FLAT AND UPRIGHT CLINICAL HISTORY: ? constipation TECHNIQUE: Supine and upright abdomen, 4 images COMPARISON: CT from 02/04/2020 FINDINGS: Patient status post bilateral sacral plasty and L5 vertebral plasty. Inthe region of vertebral plasty there is a linear metallic focus as well.Clinical correlation recommended. There are bilateral total hip arthroplasties.There is severe degenerative change in the spine and bony demineralization. Thereis no free air. Stool is seen throughout the colon however I do not seedistention of the rectum. There is no evidence of obstruction. IMPRESSION 1. Status post bilateral sacral plasty and L5 vertebral plasty with ametallic linear density seen along the LEFT side of the vertebral plasty. 2. Bilateral total hip arthroplasty. 3. Demineralization and degenerative change in the spine. 4. Air seen in large and small bowel and there is stool throughout most ofthe colon however the rectum is not distended. Thank you for letting us participate in the care of this patient. If youare a health care provider and have any questions regarding this report,please contact the number below. For patients who have questions please contactthe health acute care certified nursing assistant that requested your imaging first. Electronically signed by: Maria Victoria Villafana MD, [facility] [place]([phone]), at 07/01/2022 2:56 PM Geraldo Tenorio MD IMG DX ORDERABLES documented in this encounter Visit Diagnoses Diagnosis Right lower quadrant pain Abdominal pain, right lower quadrant Right lower quadrant pain Abdominal pain, right lower quadrant documented in this encounter Care Teams Displayer Merchandise Relationship Specialty Start Date End Date Reji Adams MD [facility] [place] [address] PCP - General General Internal Medicine 07/13/15 documented as of this encounter
--- OUTSIDE RECORDS SUMMARY | 2024-07-09 11:08 | XMS_ITS | Encounter Summary ---
Author Organization [facility] Address [facility] [place] [address] Care Team Providers Care Service Station Cashier Name Role Phone Reji Adams MD Primary Care Provider Encounter Details Date Type Department Care Team (Late st Contact Info) Description 06/12/2022 Ancillary Procedure Radiology Library at [facility] [place] [address] Reji Adams MD [facility] [place] [address] Social History Tobacco Use Types Packs/Day Years [...] 11:30 AM EDT Office Visit [place] [address] Charline Ziegler MD [facility] [place] [address] documented as of this encounter Procedures Procedure Name Priority Date/Time Associated Diagnosis Comments FILM LIBRARY STORAGE ONLY NUCLEAR MEDICINE Routine 06/12/2022 12:00 AM EST documented in this encounter Results * Film Library- Storage Only nuclear medicine (06/12/2022 12:00 AM EST) Narrative [facility] - 06/13/2022 12:06 AM EST This exam is auto-finalizing. It's purpose is for storage only. Reji Adams MD IMG FILM LIBRARY ORD ERABLES [place], [place] documented in this encounter Visit Diagnoses Not on filedocumented in this encounter Care Teams Service Station Cashier Relationship Specialty Start Date End Date Reji Adams MD [facility] [place] [address] PCP - General General Internal Medicine 07/13/15 documented as of this encounter
--- OUTSIDE RECORDS SUMMARY | 2024-07-09 11:08 | XMS_ITS | Encounter Summary ---
Author Organization [facility] Address [facility] [place] [address] Care Team Providers Care Biomass Production Manager Name Role Phone Reji Adams MD Primary Care Provider [phone] Encounter Details Date Type Department Care Team (Late st Contact Info) Description 05/22/2022 2:00 PM EDT - 05/22/2022 3:40 [place] [address] Tomas Falcon MD [facility] [place] [address] VERTEBROPLASTY Social History Tobacco Use Types Packs/Day Years [...] Sign Reading Time Taken Comments Blood Pressure 137/77 05/22/2022 1:01 PM EDT Pulse 64 05/22/2022 1:01 PM EDT Temperature 36 ??C (96.8 ??F) 05/22/2022 1:01 PM EDT Respiratory Rate 16 05/22/2022 1:01 PM EDT Oxygen Saturation 99% 05/22/2022 1:01 PM EDT Inhaled Oxygen Concentration - - Weight 90.3 kg (199 lb) 05/22/2022 1:01 PM EDT Height 180.3 cm (5' 11) 05/22/2022 1:01 PM EDT Body Mass Index 27.75 05/22/2022 1:01 PM EDT documented in this encounter Discharge Instructions * Discharge Instructions* Bonnie Aguilera RN - 05/22/2022 5:49 PM EDT documented in this encounter Medications at [...] daily as needed for Anxiety. 90 tablet 04/21/2022 05/29/2022 celecoxib (CeleBREX) 100 mg Capsule Take 100 [...] daily. 03/17/2023 documented as of this encounter Progress Notes * Bonnie Aguilera RN - 05/22/2022 6:42 PM EDT Patient alert and oriented, vital signs stable. Reviewed discharge instructions; patient verbalizedunderstanding. Copy of instruction sheet with contact numbers for questions/concerns with patient. Pain assessment documented. Patient escorted out of department via wheelchair with RN. documented in this encounter H&P Notes * Lauren Casarez APRN - 05/22/2022 1:21 PM EDT NEURORADIOLOGY BRIEF PRE-PROCEDURE NOTE Name: Ken Mckeon Date of : 1945 Indication: Bilateral low back/buttock pain Planned Procedure: CT guided sacroplasty/L5 vertebroplasty Chief Complaint/HPI: Ken Mckeon is a 76 y.o. male with several month history of persistent low back and posterior leg pain with ambulation. CT and L5 fractures seen on MRI/CT. Current Facility-Administered Medications: ??? sodium chloride 0.9 % (flush) (BD PosiFlush Normal Saline 0.9) flush 5 mL, 5 mL, Intravenous, BID, Tressa Ivory APRN ??? sodium chloride 0.9 % (flush) (BD PosiFlush Normal Saline 0.9) flush 5-20 mL, 5-20 mL, Intravenous, Q1 Min PRN, Tressa Ivory APRN ??? lidocaine (Xylocaine) 1% (10 mg/mL) injection 3 mg, 0.3 mL, Subcutaneous, Once PRN, Tressa Ivory APRN ??? clindamycin (Cleocin) 900 mg in dextrose 5% 50 mL infusion, 900 mg, Intravenous, Once, Tressa Ivory APRN Allergies Allergen Reactions ??? Penicillins Anaphylaxis Tongue swelling ??? Betamethasone hiccups after injection ??? Dexamethasone Hiccups after injection ??? Triamcinolone Acetonide Hiccups Physical Exam: A&Ox3, in NAD. HR reg, s1/s2 RR reg, nonlabored LE strength symmetric, full Labs: INR Date Value Ref Range Status 11/22/2015 1.1 0.9 - 1.1 Final Platelets Date Value Ref Range Status 05/29/2021 198 145 - 357 x10(3)/mcL Final Assessment: 76 y.o. male with the above history. Pain has persisted and localizes to known fracturesites. Will proceed as planned, pending platelet and coag profile results drawn today. Position: Prone Prophylaxis: Clindamycin (PCN allergy) Pathology: n/a Sedation: per anesthesia Additional medications for procedure: lidocaine 1% Consent: obtained. Lauren Casarez APRN 05/22/2022 1:21 PM documented in this encounter Plan of Treatment Upcoming Encounters Date Type Department Care Team (Late st Contact Info) Description 12/15/2024 11:30 AM EDT Office Visit Gastroenterology at [facility] [place] [address] Charline Ziegler MD [facility] [place] [address] (work) documented as of this encounter Procedures Procedure Name Priority Date/Time Associated Diagnosis Comments VERTEBROPLASTY 05/22/2022 2:26 PM EDT Bilateral sacral insufficiency fractures and L5 Vertebral compression fracture HC PROTHROMBIN TIME Routine 05/22/2022 1 :30 PM EDT documented in this encounter Results * Prothrombin Time (05/22/2022 1:30 PM EDT) Prothrombin Time 12.0 9.4 - 12.5 sec [facility] International Normalization Ratio 1.0 [facility] Comment: An INR <2.0 indicates adequate procoagulant activity for hemostasis in most patients without underlying bleeding disorders, though the INR may not adequately reflect hemostatic capacity in patients with liver disease and synthetic impairment. The recommended target INR range for therapeutic anticoagulation is 2.0 ? 3.0 for most applications, though lower and higher ranges may be appropriate depending on clinical circumstances. Blood 05/22/2022 1:30 PM EDT 05/22/2022 1:37 PM EDT Narrative Resulting Agency Comment Spec In Lab Tressa Ivory APRN HEMATOLOGY ORDERA BLES [facility] [place] [address] documented in this encounter Visit Diagnoses Not on filedocumented in this encounter Active and Recently Administered Medications Times are shown in EDT. Scheduled Medication Order 05/20/2022 05/21/2022 05/22/2022 clindamycin (Cleocin) 900 mg in dextrose 5% 50 mL infusion (COMPLETED) 900 mg, Intravenous, ONCE, 1 dose, On Fri05/22/22 at 1330, Administer over 30 Minutes, Give over 30-60 minutes. Do not exceed 30 mg/minute. Redose every 6 hours., Angio/IR (Day of Procedure), Indication for (Active or Suspected): Prophylaxis 1503 (Given - Provid er: Tiago Mcdonough CRNA) documented in this encounter Care Teams Biomass Production Manager Relationship Specialty Start Date End Date Reji Adams MD [facility] [place] [address] PCP - General General Internal Medicine 07/13/15 documented as of this encounter
--- OUTSIDE RECORDS SUMMARY | 2024-07-09 11:08 | XMS_ITS | Encounter Summary ---
[facility] Address [facility] [place] [address] Care Team Providers Care Chainstitch Felled Seam Operator Name Role Phone Reji Adams MD Primary Care Provider [phone] Encounter Details Date Type Department Care Team (Late st Contact Info) Description 05/22/2022 2:26 [place] [address] Sukumar Luna MD [facility] [place] [address] Anesthesia Record Procedure Summary Procedure Name Responsible Anesthesiologist Anesthesia Start Time Anesthesia Stop Time VERTEBROPLASTY Cheryl, Sukumar Bueno MD 05/22/22 1426 1725 Events Date Time Event Comment 05/22/2022 1347 1426 AN Verify 1426 Start 1427 An Start Data 1435 An Induction 1438 An Intubation 1445 Anesthesia Ready 1530 Break/Relief In I assumed ca re for Break Relief before which we: 1. Identified the patient 2. Identified the responsible provider(s) 3. Reviewed the pertinent medical history 4. Discussed the surgical plan and course 5. Reviewed intra-op anesthesia management and issues during anesthesia 6. Set expectations for the relief (and/or post-procedure) period 7. Allowed opportunity for questions and acknowledgement of understanding [place] RANGE MECHANIC 1542 Break/Relief Out 1714 Extubation/LMA Out 1716 an stop data 1725 Recovery or ICU Handoff Cecilia ent care was transferred to the destination unit staff after review of the patient's medical history, current anesthetic/surgical status and plan, according to the Provider Handoff Checklist. 1725 Stop Meds Name Total fentaNYL 150 mcg Propofol 200 mg Rocuronium 80 mg ePHEDrine 15 mg Ondansetron 4 mg clindamycin (Cleocin) 900 mg in dextrose 5% 50 mL infusion 900 mg PHENYLephrine INF 2,020 mcg Sugammadex 200 mg Lactated Ringers 500 mL * Agents Name O2 Air N2O Sevoflurane (et) * Blood No blood administrations on file. Lines, Drains, and Airways Type Details Placement Removal (RETIRED) Peripheral IV Line - Single Lumen 05/22/22; 1331; metacarpal vein (top of hand), left; jgul-hhy-kvtdhb catheter system; Anatomical Landmarks; 20 gauge; intradermal injection, distraction; 05/22/22; 1800 05/22/22 1332 by Seema Castillo RN 05/22/22 1800 by Bonnie Aguilera RN ETT Mask Ventilation: Ankit avila (1); ETT Type: Cuffed, Oral; ETT Size: 8 mm; Mac Blade: 3; Notes: Pre-O2, Asleep; Attempts: 1; Laryngoscopy Grade: 2; ETT Placement Verified By: Auscultation, Capnometry, Visual; Secured at Teeth: 24 cm; Inserted by: Arjun Mcdonough; Removal Date: 05/22/22; Removal Time: 171305/22/22 144 by Tiago Mcdonough CRNA 05/22/22 171 by Tiago Mcdonough CRNA documented in this encounter Social History Tobacco Use Types Packs/Day [...] AM EDT documented as of this encounter OR Notes * Anesthesia Postprocedure Evaluation - Sukumar Luna MD - 05/22/2022 5:27 PM EDT Department of Anesthesiology Post-procedure Note Patient: Ken Mckeon Procedure Summary Date: 05/22/22 Room / Location: [facility] / [facility] Anesthesia Start: 1425 Anesthesia Stop: 1724 Procedure: VERTEBROPLASTY (N/A ) Diagnosis: (Bilateral sacral insufficiency fractures and L5 Vertebral compression fracture) Surgeons: Tomas Falcon MD Responsible Provider: Sukumar Luna MD Anesthesia Type: general ASA Status: 3 All Anesthesia Providers: Anesthesiologist: Sukumar Luna MD RANGE MECHANIC: Tiago Mcdonough CRNA Vitals Value Taken Time BP 123/106 05/22/22 1723 Temp 36.1 ??C (97 ??F) 05/22/22 1722 Pulse 68 05/22/22 1726 Resp 14 05/22/22 1726 SpO2 100 % 05/22/22 172 Pain Level Vitals shown include unvalidated device data. Patient Location: PACU/[facility] Level of Consciousness: Awake and Alert Pain Management: Satisfactory Analgesia PONV: None Cardiovascular Status: At Baseline Respiratory Status: Supplemental O2 (NC or FM) Postoperative Fluid Status: Intravascular EUvolemia Possible Anesthetic Complications: NONE apparent at time of evaluation Final Primary Anesthesia Type: General (The anesthetic type performed was the same as planned.) Comments: I have evaluated the patient in the postoperative period. Patient is doing well early in his postprocedural course. He does have 3 cm oval size discolorations from prone positioning on bothknees. The lesions do alin and appear less pronounced then upon emergence. They are not currentlypainful. I did ask the patient to monitor them for continued improvement and to seek follow up withlack of improvement. Addendum: Followed up and was pleased to note that the oval blanching areas on the knees are now gone. * Anesthesia Preprocedure Evaluation - Sukumar Luna MD - 05/22/2022 1:44 PM EDT Pre-Anesthesia Evaluation for: Ken Mckeon a 76 y.o. male. Procedure(s): VERTEBROPLASTY Patient Active Problem List Diagnosis Date Noted ??? Sacral insufficiency fracture 04/11/2022 ??? Pure hypercholesterolemia 04/11/2022 ??? Venous insufficiency of both lower extremities 02/11/2022 ??? Varicose veins of both lower extremities with pain 02/11/2022 ??? LAFB (left anterior fascicular block) 12/10/2021 ??? PSVT (paroxysmal supraventricular tachycardia) 12/10/2021 ??? RBBB 12/10/2021 ??? Malignant neoplasm of prostate 03/04/2019 ??? S/P rotator cuff repair 08/07/2018 ??? Trigger finger, left ring finger 03/31/2018 ??? Chronic left shoulder pain 05/13/2017 ??? Arthritis of right elbow 05/13/2017 ??? Asymmetrical sensorineural hearing loss 04/21/2017 ??? Right arm numbness 09/04/2015 ??? Peripheral neuropathy 09/26/2014 ??? Urinary urgency 09/26/2014 ??? Cervical stenosis of spinal canal 08/16/2014 ??? Back pain 04/12/2013 ??? Depression 01/20/2013 ??? Cervical radiculopathy 09/24/2012 ??? Insomnia 09/01/2012 ??? Neck pain 08/24/2012 ??? Anxiety 03/13/2012 ??? OA (osteoarthritis) of knee ??? Cataract extraction status of left eye 05/10/2011 ??? Status post total knee replacement 01/04/2011 Past Medical History: Diagnosis Date ??? BPH (benign prostatic hyperplasia) ??? Neck pain 08/24/2012 ??? OA (osteoarthritis) of knee right ??? Spinal cord injury at 2015 Past Surgical History: Procedure Laterality Date ??? CREATED BY INTERFACE Past surg hx. Procedure Date: 09/19/2010 ??? PRO COLONOSCOPY, DIAGNOSTIC 09/07/2013 COLONOSCOPY, DIAGNOSTIC performed by Ximena Gu MD at [facility] ENDOSCOPY ??? PRO COLONOSCOPY, REMV LESN, SNARE N/A 01/25/2020 COLONOSCOPY, POLYPECTOMY, REMOVAL LESION BY SNARE (WRVU 4.67) performed by Michelle Camarillo MDat [facility] END[facility] ??? PRO ENDOSCOPIC US EXAM, ESOPH N/A 03/14/2020 UPPER EUS- ENDOSCOPIC ULTRASOUND performed by Festus Carballo MD at [facility] ENDOSCOPY ??? PRO LIGATE/STRIP LONG SAPH VEIN BELW SEP-FEM JUNC 06/02/2012 LIGATION\DIV\STRIP GREATER SAPHENOUS VEIN performed by BEATRICE RODRÍGUEZ at [facility] MAIN OR ??? PRO PHLEB VEINS - EXTREM - TO 20 06/02/2012 STAB PHLEBECTOMY KARLI VEINS, EXTREMITY 10-20 INCISIONS-SANTI performed by BEATRICE RODRÍGUEZ at [facility] MAIN OR ??? PRO UPPER GI ENDOSCOPY, BIOPSY N/A 09/02/2017 EGD WITH BIOPSY (WRVU 2.49) performed by Rahul Escobar MD at [facility] ENDOS[facility] ??? PRO UPPER GI ENDOSCOPY, BIOPSY N/A 01/25/2020 EGD WITH BIOPSY (WRVU 2.49) performed by Michelle Camarillo MD at [facility] END[facility] ??? PRO UPPER GI ENDOSCOPY, BIOPSY N/A 03/14/2020 EGD WITH BIOPSY (WRVU 2.49) performed by Festus Carballo MD at [facility] END[facility] ??? US GUIDED BIOPSY PROSTATE ([place] ONLY) 02/08/2019 US Guided Transrectal Biopsy 02/08/2019 [facility] RAD ULTRASOUND Social History Tobacco Use ??? Smoking status: Never Smoker ??? Smokeless tobacco: Current User Types: Chew ??? Tobacco comment: 3 cans/ week. Substance Use Topics ??? Alcohol use: Yes Alcohol/week: 0.0 - 1.0 standard drinks Comment: 1 drink per month Social History Substance and Sexual Activity Drug Use No Allergies Allergen Reactions ??? Penicillins Anaphylaxis Tongue swelling ??? Betamethasone hiccups after injection ??? Dexamethasone Hiccups after injection ??? Triamcinolone Acetonide Hiccups Medications: MAR and/or home medications have been reviewed. Physical Exam: Preprocedure Vitals Current as of 05/22/22 1344 BP: 137/77 Pulse: 64 Resp: 16 SpO2: 99 Temp: 36 ??C (96.8 ??F) Height: 180.3 cm (5' 11) (05/22/22) Weight: 90.3 kg (199 lb) (05/22/22) BMI: 27.75 IBW: 75.3 kg (165 lb 14.8 oz) Last edited 05/22/22 1301 by EW Airway Assessment: Mallampati: II TM distance: >3 FB Neck ROM: full Cardiovascular Assessment: Rhythm: regular Rate: normal Pulmonary Assessment: breath sounds clear to auscultation Dental Assessment: Misc Assessment: IV access: Peripheral line Last Filed Perioperative Cognitive Screening None Anesthesia Plan: ASA 3 general, with a(n) intravenous induction I have seen and examined the patient. I have reviewed the medical record and pertinent laboratory information. I have noted the major medical issues as outlined in the problem list. Patient has advanced prostate cancer, but responding to chemotherapy. He denies cardiac pathology and was previously a ctive. He does have baseline conduction abnormalities on his EKG. He is appropriately NPO and denies active GERD. I have reviewed risks from minor to major as outlined in the anesthesia consent form.I have highlighted risks related to airway management and prone positioning (pain, swelling, eye injury, nerve injury, msk related pain). He is aware that our care model is based on a team and I will be working with either a RANGE MECHANIC or resident physician. A resident physician means a physician who is in training to be an anesthesiologist. The patient acknowledged these risks and would like to proceed with the anesthesia plan. Balanced GA. Region - Other Informed Consent: Anesthetic plan and risks discussed with patient. Use of blood products discussed with patient who consented to blood products. Plan discussed with RANGE MECHANIC. Anesthesia Screening documented in this encounter Miscellaneous Notes * Addendum Note - [facility], Sukumar Bueno MD - 05/22/2022 5:43 PM EDT Addendum created 05/22/22 8663 by Sukumar Luna MD Clinical Note Signed documented in this encounter Plan of Treatment Upcoming Encounters Date Type Department Care Team (Late st Contact Info) Description 12/15/2024 11:30 AM EDT Office [place] [id number] Charline Ziegler MD [facility] [address] documented as of this encounter Visit Diagnoses Not on filedocumented in this encounter Administered Medications Inactive Administered Medications - up to 3 most recent administrations Medication Order MAR Action Action Date Dose Rate Site clindamycin (Cleocin) 900 mg in dextrose 5% 50 mL infusion 900 mg, Intravenous, ONCE, 1 dose, On Fri05/22/22 at 1330, Administer over 30 Minutes, Give over 30-60 minutes. Do not exceed 30 mg/minute. Redose every 6 hours., Angio/IR (Day of Procedure), Indication for (Active or Suspected): Prophylaxis Given 05/22/2022 3:03 PM EDT 900 mg ePHEDrine sulfate (5 mg/mL) multi-dose injection Intravenous, PRN, Starting on Fri05/22/22 at 1504, Until Fri05/22/22 at 1725, Anesthesia Intra-op, Routine Given 05/22/2022 3:08 PM EDT 5 mg Given 05/22/2022 3:04 PM EDT 5 mg Given 05/22/2022 3:00 PM EDT 5 mg fentaNYL (pf) (50 mcg/mL) multi-dose injection Intravenous, PRN, Starting on Fri05/22/22 at 1434, Until Fri05/22/22 at 1725, Anesthesia Intra-op, Routine Given 05/22/2022 3:28 PM EDT 50 mcg Given 05/22/2022 2:36 PM EDT 50 mcg Given 05/22/2022 2:34 PM EDT 50 mcg lactated ringers infusion Intravenous, CONTINUOUS PRN, Starting on Fri05/22/22 at 1433, Until Fri05/22/22 at 1725, Anesthesia Intra-op New Bag 05/22/2022 2:33 PM EDT ondansetron (pf) (Zofran) (2 mg/mL) injection Intravenous, PRN, Starting on Fri05/22/22 at 1648, Until Fri05/22/22 at 1725, Anesthesia Intra-op, Routine Given 05/22/2022 4:48 PM EDT 4 mg PHENYLephrine (Garrick-Synephrine) (80 mcg/mL) in sodium chloride 0.9% 250 mL infusion Intravenous, CONTINUOUS PRN, Starting on Fri05/22/22 at 1510, Until Fri05/22/22 at 1725, Anesthesia Intra-op, Routine Rate/Dose Change 05/22/2022 3:35 PM EDT 20 mcg/min 15 mL/hr Rate/Dose Change 05/22/2022 3:27 PM EDT 10 mcg/min 7.5 mL/ hr New Bag 05/22/2022 3:10 PM EDT 20 mcg/min 15 mL/hr propofoL (Diprivan) 10 mg/mL bolus injection (Anesthesia) Intravenous, PRN, Starting on Fri05/22/22 at 1435, Until Fri05/22/22 at 1725, Anesthesia Intra-op Given 05/22/2022 2:35 PM EDT 200 mg rocuronium (Zemuron) (10 mg/mL) multi-dose injection Intravenous, PRN, Starting on Fri05/22/22 at 1436, Until Fri05/22/22 at 1725, Anesthesia Intra-op, Routine Given 05/22/2022 3:24 PM EDT 30 mg Given 05/22/2022 2:36 PM EDT 50 mg sugammadex (Bridion) 100 mg/mL injection Intravenous, PRN, Starting on Fri05/22/22 at 1711, Until Fri05/22/22 at 1725, Anesthesia Intra-op, Routine Given 05/22/2022 5:11 PM EDT 200 mg documented in this encounter Care Teams Chainstitch Felled Seam Operator Relationship Specialty Start Date End Date Reji Adams MD [facility] [place] [address] PCP - General General Internal Medicine 07/13/15 documented as of this encounter
--- OUTSIDE RECORDS SUMMARY | 2024-07-09 11:08 | XMS_ITS | Encounter Summary ---
Author Organization [facility] Address [facility] [place] [address] Care Team Providers Care Remote Broadcast Engineer Name Role Phone Reji Adams MD Primary Care Provider [phone] Encounter Details Date Type Department Care Team (Late st Contact Info) Description 08/02/2022 [place] [id number] Lauren Casarez APRN [facility] [place] [address] Social History Tobacco Use Types Packs/Day Years [...] encounter Miscellaneous Notes * Telephone Encounter - Lauren Casarez, SE[employer]ER AND CUTTER FINGER BUFF MATERIAL - 08/02/2022 11:43 AM EST Pain is worse with lifting legs, as when lifting legs out of car or picking feet up while standing. Feels ok when sitting still, but prolonged sitting can also be uncomfortable. Has prior history of RLS, which has worsened recently. Two weeks after sacroplasty had no relief, then got about a week of relief, then pain worsened to agreater extent than previously. R hip/groin and anterior/posterior thighs are the primary sites of pain, but feels to a lesser extent in left groin and thigh. Pain is both sharp and burning. No issues with controlling bladder. Having much worse constipation than has been in the past. No bowel incontinence. For his prostate cancer, had surgery followed by radiation treatment. Dr. Cindy wheeler Rhodhiss was his radiation oncologist. 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 Has investigated the POP (percutaneous osteoplasty of pubis) procedure, wondering if this might be of use. Discussed POP with Dr. Faclon previously; Dr. Falcon has not done this procedure. Will review with Dr. Falcon. I wonder if his pubic fractures are the pain generator, since pain pattern does not follow specificdermatome. Recent CT abdomen done here at [facility] showed abnormal sclerosis of R superior pubic ramus. In the interim, discussed options to ameliorate symptoms. Gregg has a prescription for gabapentin but wishes to avoid medications with potential for sedation, given concern for fall risk overnight. Discussed option of using bedside urinal to reduce this risk. Will touch base with Gregg after I've reviewed with Dr. Falcon; may consider dedicated imaging of pelvis and/or consultation with Dr. White regarding other options to alleviate pain in this area. * Telephone Encounter - Lauren Casarez APRN - 08/02/2022 11:43 AM EST ----- Message from Stephanie Cuenca sent at 08/02/2022 10:51 AM EST ----- Regarding: FW: Losing walking ability Contact: Who would be the appropriate person to chat with this patient? ----- Message ----- From: Tressa Teran Sent: 08/02/2022 10:15 AM EST To: Stephanie Cuenca Subject: FW: Losing walking ability Gregor Live, Wondering if a RN should call him? [place] ----- Message ----- From: Ken Mckeon Sent: 08/01/2022 6:11 PM EST To: [facility] Demond Corrales Personal Lines Sales Executive Subject: Losing walking ability Justin Falcon... My improved walking was very short lived. My pain level has increased dramatically and my mobility has decreased dramatically. I don't know what the root cause is as there have been numerous scans and images done of the pelvic/sacral area. I don't know if this is nerve related or a skeletal issue. Could you possibly suggest / recommend someone to see? I do apologize if I should be directing this request elsewhere. I am truly worried and discouraged. Thank you, Gregg Mckeon documented in this encounter Plan of Treatment Upcoming Encounters Date Type Department Care Team (Late st Contact Info) Description 12/15/2024 11:30 AM EDT Office [place] [address] Charline Ziegler MD [facility] [place] [address] documented as of this encounter Visit Diagnoses Not on filedocumented in this encounter Care Teams Remote Broadcast Engineer Relationship Specialty Start Date End Date Reji Adams MD [facility] GENERAL [place] [address] PCP - General General Internal Medicine 07/13/15 documented as of this encounter
--- OUTSIDE RECORDS SUMMARY | 2024-07-09 11:08 | XMS_ITS | Encounter Summary ---
Author Organization [facility] [place] [address] Care Team Providers Care Java Web Application Developer Name Role Phone Reji Adams MD Primary Care Provider [phone] Encounter Details Date Type Department Care Team (Latest Contact Info) Description 07/09/2022 Travel Social History Tobacco Use Types Packs/Day [...] 11:30 AM EDT Office [place] [address] Charline Ziegler MD [facility] [place] [address] documented as of this encounter Visit Diagnoses Not on filedocumented in this encounter Care Teams Java Web Application Developer Relationship Specialty Start Date End Date Reji Adams MD [facility] [place] [address] PCP - General General Internal Medicine 07/13/15 documented as of this encounter
--- OUTSIDE RECORDS SUMMARY | 2024-07-09 11:08 | XMS_ITS | Encounter Summary ---
Author Organization [facility] Address [facility] [place] [address] Care Team Providers Care Tanning Salon Attendant Name Role Phone Reji Adams MD Primary Care Provider [phone] Reason for Visit * Reason Onset Date Comments Medication Refill 07/13/2022 Encounter Details Date Type Department Care Team (Late st Contact Info) Description 07/13/2022 Refill Internal Medicine at [address] [address] Reji Adams MD [facility] GENERAL INTER[place] [address] Anxiety Social History Tobacco Use Types Packs/Day [...] 11:30 AM EDT Office Visit [place] [address] Charline Ziegler MD [facility] [place] [address] documented as of this encounter Visit Diagnoses Diagnosis Anxiety Anxiety state, unspecified documented in this encounter Care Teams Tanning Salon Attendant Relationship Specialty Start Date End Date Reji Adams MD [facility] GENER[facility] [place] [address] PCP - General General Internal Medicine 07/13/15 documented as of this encounter
--- OUTSIDE RECORDS SUMMARY | 2024-07-09 11:08 | XMS_ITS | Encounter Summary ---
Author Organization [facility] [place] [address] Care Team Providers Care Roving Or Yarn Color Checker Name Role Phone Reji Adams MD Primary Care Provider [phone] Encounter Details Date Type Department Care Team (Latest Contact Info) Description 07/29/2022 Travel Social History Tobacco Use Types Packs/Day [...] 11:30 AM EDT Office [place] [address] Charline Ziegler MD [facility] [place] [address] documented as of this encounter Visit Diagnoses Not on filedocumented in this encounter Care Teams Roving Or Yarn Color Checker Relationship Specialty Start Date End Date Reji Adams MD [facility] GENERAL [place] [address] PCP - General General Internal Medicine 07/13/15 documented as of this encounter
--- OUTSIDE RECORDS SUMMARY | 2024-07-09 11:08 | XMS_ITS | Encounter Summary ---
Author Organization [facility] Address [facility] [place] [address] Care Team Providers Care Superintendent Transportation Name Role Phone Reji Adams MD Primary Care Provider [phone] Reason for Visit * Reason Onset Date Comments Triage 05/16/2022 Encounter Details Date Type Department Care Team (Late st Contact Info) Description 05/16/2022 Telephone Internal Medicine at [address] [address] Reji Adams MD [facility] GENERAL [place] [address] Triage Social History Tobacco Use Types Packs/Day Years [...] encounter Miscellaneous Notes * Telephone Encounter - Amaris Horowitz RN - 05/16/2022 5:30 PM EDT Spoke to Gregg, identified by full name and birthday. Patient reports fatigue beginning one week ago after receiving his high dose flu vaccine. Fatigue has improved gradually each day, but still persists. Denies difficulty breathing, any bleeding, feeling like his heart is beating rapidly, slowly, or irregularly, or chest pain. He is not concerned for COVID- 19. He is able to still perform all normal activities, but states he is tired by the end of the day. Offered appointment, but he declines at this time, stating he will monitor fatigue through the weekend and call back on Friday if still persists. Asked him to please seek care sooner over the weekendfor any difficulty breathing, chest pain or cardiac symptoms, bleeding, fainting or if he otherwisefeels worse. Patient verbalizes understanding and agrees with plan, will call back as needed. * Telephone Encounter - JohnAbbie - 05/16/2022 4:38 PM EDT Message: Patient calling in. Has been feeling extremely fatigued and having no energy. No other symptom, No fever, cold. Would like to be seen and perhaps have some blood work. Declined virtual visit. Nurse not available for call. Ask caller their first and last name and relationship to the patient: self Best time to call back: any Ok to leave a message: Yes Ok to send my- message: n Offered Appointment: n MA/Nurse/Stephenson contacted via: Message: yes Call: n Pager: n documented in this encounter Plan of Treatment Upcoming Encounters Date Type Department Care Team (Late st Contact Info) Description 12/15/2024 11:30 AM EDT Office [place] [address] Charline Ziegler MD [facility] [place] [address] documented as of this encounter Visit Diagnoses Not on filedocumented in this encounter Care Teams Superintendent Transportation Relationship Specialty Start Date End Date Reji Adams MD [facility] GENER[facility] [place] [address] PCP - General General Internal Medicine 07/13/15 documented as of this encounter
--- OUTSIDE RECORDS SUMMARY | 2024-07-09 11:08 | XMS_ITS | Encounter Summary ---
Author Organization [facility] Address [facility] [place] [address] Care Team Providers Care Systems Qa Analyst Name Role Phone Reji Adams MD Primary Care Provider Reason for Visit * Reason Onset Date Comments Medication Refill 05/29/2022 Encounter Details Date Type Department Care Team (Late st Contact Info) Description 05/29/2022 Refill Internal Medicine at [address] [address] Reji Adams MD [facility] [place] [address] Anxiety Social History Tobacco Use Types Packs/Day [...] AM EDT Office [place] [address] Charline Ziegler MD [facility] [place] [address] documented as of this encounter Visit Diagnoses Diagnosis Anxiety Anxiety state, unspecified documented in this encounter Care Teams Systems Qa Analyst Relationship Specialty Start Date End Date Reji Adams MD [facility] [place] [address] PCP - General General Internal Medicine 07/13/15 documented as of this encounter
--- OUTSIDE RECORDS SUMMARY | 2024-07-09 11:08 | XMS_ITS | Encounter Summary ---
Author Organization [facility] Address [facility] [place] [address] Care Team Providers Care Packer Insulation Name Role Phone Reji Adams MD Primary Care Provider [phone] Encounter Details Date Type Department Care Team (Late st Contact Info) Description 07/26/2022 3:15 PM EST - 07/26/2022 4:15 PM EST Surgery [place] [address] May Riojas MD [facility] [place] [address] COLONOSCOPY, DIAGNOSTIC (WRVU 3.26) Social History Tobacco Use Types Packs/Day Years [...] Sign Reading Time Taken Comments Blood Pressure 131/74 07/26/2022 4:10 PM EST Pulse 59 07/26/2022 4:10 PM EST Temperature 36.1 ??C (96.9 ??F) 07/26/2022 2:30 PM ES T Respiratory Rate 14 07/26/2022 4:10 PM EST Oxygen Saturation 100% 07/26/2022 4:10 PM EST Inhaled Oxygen Concentration - - [...] to be checked. Friday-Friday Same Day Endo [phone] Otherwise contact [phone] and ask to speak to the senior svp process validation engineer Follow up care is a enrique part [...] 11:30 AM EDT Office Visit [place] [address] Charline Ziegler MD [facility] [place] [address] documented as of this encounter Procedures Procedure Name Priority Date/Time Associated Diagnosis Comments Colonoscopy, Diagnostic (04357) 07/26/2022 3:24 PM EST Procedure: Colonoscopy Indication: Constipation, abdominal pain Sedation: IVCS Timeframe: within non-urgent Specific provider: first available OV needed: No Anticoagulation status: no documented anticoagulation use COLONOSCOPY Routine 07/26/2022 2:52 PM EST documented in this encounter Results * COLONOSCOPY (07/26/2022 2:52 PM EST) [facility] Signature COLONOSCOPY [facility] Endoscopy Procedure Date: 07/26/2022 2:52 PM ? Patient Name: Ken Mckeon ? N: [id number] ? Date of : 1945 ? Age: 76 ? Order #: [id number] ? Instrument Name: [id number] ? Procedure: ? Colonoscopy Indications: ? Constipation [...] ? was evaluated using the BBPS ? ([place] Bowel Preparation Scale) ? with scores of: [...] Reji Adams MD GENERAL SURGICAL ORD ERABLES Performing Organization Address City/State/[facility] Co de Phone Number [employer] documented in this encounter Visit Diagnoses Not on filedocumented in this encounter Administered Medications Inactive Administered Medications - up to 3 most recent administrations Medication Order MAR Action Action Date Dose Rate Site fentaNYL (pf) (50 mcg/mL) multi-dose injection ONCE PRN, Starting on Fri07/26/22 at 1533, Until Fri07/26/22 at 1901, Intra-Operative (Intra-Procedure), Routine Given 07/26/2022 3:52 PM EST 50 mcg Given 07/26/2022 3:48 PM EST 50 mcg Given 07/26/2022 3:40 PM EST 50 mcg lactated ringers infusion 100 mL/hr, Intravenous, CONTINUOUS, Starting on Fri07/26/22 at 1445, Until Fri07/26/22 at 1648, Day of Surgery (Day of Procedure) New Bag 07/26/2022 2:45 PM EST 100 mL/hr 100 mL/hr midazolam (pf) (Versed) (1 mg/mL) multi-dose injection ONCE PRN, Starting on Fri07/26/22 at 1533, Until Fri07/26/22 at 1901, Intra-Operative (Intra-Procedure), Routine Given 07/26/2022 3:53 PM EST 1 mg Given 07/26/2022 3:49 PM EST 1 mg Given 07/26/2022 3:43 PM EST 1 mg documented in this encounter Active and [...] Provider: Geraldo Gonzalez RN)1543 (Given - Provider: Geraldo Gonzalez RN)1549 (Given - Provider: Geraldo Gonzalez RN)1553 (Given - Provider: Geraldo Gonzalez, RN) documented in this encounter Care Teams Packer Insulation Relationship Specialty Start Date End Date Reji Adams MD [facility] [place] [address] PCP - General General Internal Medicine 07/13/15 documented as of this encounter
--- OUTSIDE RECORDS SUMMARY | 2024-07-09 11:08 | XMS_ITS | Encounter Summary ---
Author Organization [facility] Address [facility] [place] [address] Care Team Providers Care Neon Sign Mechanic Name Role Phone Reji Adams MD Primary Care Provider [phone] Reason for Referral * Diagnostic Test (Routine) - Closed Specialty Diagnoses / Procedures Referred By Contac t Referred To Contact Radiology Diagnoses Sacral insufficiency fracture with delayed healing, subsequent encounter Procedures CT Guided Sacroplasty/Vertebroplasty CT Guided Sacroplasty/Vertebroplasty Tressa Ivory APRN [facility] [place] [address] [facility] [place] [address] Referral ID Status Reason Start Date Expiration Date V isits Requested Visits Authorized [id number] Closed Specialty Service Requested 04/19/2022 10/18/2023 1 1 Reason for Visit * Diagnostic Test (Routine) - Closed Specialty Diagnoses / Procedures Referred By Contac t Referred To Contact Radiology Diagnoses Sacral insufficiency fracture with delayed healing, subsequent encounter Procedures CT Guided Sacroplasty/Vertebroplasty CT Guided Sacroplasty/Vertebroplasty Tressa Ivory APRN [facility] [place] [address] [facility] [place] [address] Referral ID Status Reason Start Date Expiration Date V isits Requested Visits Authorized [id number] Closed Specialty Service Requested 04/19/2022 10/18/2023 1 1 Encounter Details Date Type Department Care Team (Latest Contact Info) Description 05/22/2022 2:00 PM EDT - 05/22/2022 11:59 PM EDT Hospital [place] [id number] Tressa Ivory APRN [facility] [place] [address] Sacral insufficiency fracture with delayed healing, subsequent encounter Discharge Disposition: Home Social History Tobacco Use [...] AM EDT documented as of this encounter Discharge Instructions * Attachments The following attachments cannot be sent through Care Everywhere. * Vertebroplasty: Post-op (Estonian) documented in this encounter Medications at Time [...] as of this encounter Progress Notes * Dm William A - 05/22/2022 6:11 PM EDT Images from the original note were not included. Vertebroplasty: What to Expect at Home Your Recovery After vertebroplasty to relieve pain from compression fractures, you may feel sore where the hollowneedle went into your back. The soreness should go away in a few days. You likely will go home the same day. You may take some pain medicine for a couple of days. Most people are able to return to their daily activities within a day after the procedure. This care sheet gives you a general idea about how long it will take for you to recover. But each person recovers at a different pace. Follow the steps below to get better as quickly as possible. How can you care for yourself at home? Activity ?? Take it easy for the first 24 hours. Rest when you feel tired. Getting enough sleep will help you recover. ?? For the first day after the procedure, avoid lifting anything that would make you strain. This may include heavy grocery bags and milk containers, a heavy briefcase or backpack, cat litter or dog food bags, a vacuum cleaners, or a child. Diet ?? You can eat your normal diet. If your stomach is upset, try bland, low-fat foods like plain rice, broiled chicken, toast, and yogurt. Medicines ?? Your doctor will tell you if and when you can restart your medicines. You will also get instructions about taking any new medicines. ?? If you stopped taking aspirin or some other blood thinner, your doctor will tell you when to start taking it again. ?? Be safe with medicines. Take pain medicines exactly as directed. ? If the doctor gave you a prescription medicine for pain, take it as prescribed. ? If you are not taking a prescription pain medicine, ask your doctor if you can take an ijet-zuk-nyppwez medicine. ? Do not take two or more pain medicines at the same time unless your doctor told you to. Many painmedicines have acetaminophen, which is Tylenol. Too much acetaminophen (Tylenol) can be harmful. Incision care ?? You will have a dressing over the cut (incision). A dressing helps the incision heal and protects it. Your doctor will tell you how to take care of this. Ice ?? If you are sore where the needle was inserted, put ice or a cold pack on your back for 10 to 20 minutes at a time. Try to do this every 1 to 2 hours for the next 3 days (when you are awake) or until the swelling goes down. Put a thin cloth between the ice and your skin. Follow-up care is a enrique part of your treatment and safety. Be sure to make and go to all appointments, and call your doctor if you are having problems. It's also a good idea to know your test resultsand keep a list of the medicines you take. When should you call for help? Call 911 anytime you think you may need emergency care. For example, call if: ? You passed out (lost consciousness). ? You have severe trouble breathing. ? You have sudden chest pain and shortness of breath, or you cough up blood. ? You are unable to move a leg at all. Call your doctor now or seek immediate medical care if: ? You have new or worse symptoms in your legs, belly, or buttocks. Symptoms may include: ? Numbness or tingling. ? Weakness. ? Pain. ? You lose bladder or bowel control. ? You have loose stitches, or your incision comes open. ? You have signs of infection, such as: ? Increased pain, swelling, warmth, or redness. ? Red streaks leading from the incision. ? Pus draining from the incision. ? A fever. Watch closely for changes in your health, and be sure to contact your doctor if: ? You are not getting better as expected. Current as of: October 03, 2021?Content Version: 13.4 ?? [employer]. Care instructions adapted under license by [facility]. If you have questions about a medical condition or this instruction, always ask your healthcare professional. [employer] disclaims any warranty or liability for your use of this information. ?? documented in this encounter Plan of Treatment Upcoming Encounters Date Type Department Care Team (Late st Contact Info) Description 12/15/2024 11:30 AM EDT Office [place] [phone] Charline Ziegler MD [facility] [place] [address] documented as of this encounter Procedures Procedure Name Priority Date/Time Associated Diagnosis Comments CT GUIDED SACROPLASTY/VERTEB ROPLASTY Routine 05/22/2022 5:21 PM EDT Sacral insufficiency fracture with delayed healing, subsequent encounter documented in this encounter Results * CT Guided Sacroplasty/Vertebroplasty (05/22/2022 5:21 PM EDT) Anatomical Region Laterality Modality L-spine Computed Tomogra phy Impressions 05/22/2022 7:58 PM EDT Successful sacroplasty and L5 vertebroplasty. I have personally reviewed the image(s) and the resident's interpretation and agree with the findings, Tomas Falcon at 05/22/2022 7:58 PM Thank you for letting us participate in the care of this patient. ??If you are a health care provider and have any questions regarding this report, please contact the number below. ??For patients who have questions please contact the health plant care worker that requested your imaging first. ? Narrative 05/22/2022 7:58 PM EDT EXAMINATION: CT GUIDED SACROPLASTY/. L5 vertebroplasty. CLINICAL HISTORY: Bilateral sacral insufficiency fractures and L5 vertebral compression fracture COMPARISON: MRI thoracic and lumbar spine 04/09/2022 PROCEDURE: Informed consent was obtained. Preprocedure timeout was performed. The sacrum and L5 vertebral body were identified following a preprocedure planning CT scan. The overlying skin was prepped and draped in a sterile fashion. 1% lidocaine was used for skin and periosteal anesthesia. A 13-gauge Davion needle was advanced into the anterior right sacrum. A second 13-gauge Davion needle was advanced into the anterior left sacrum. An 11-gauge Davion needle was advanced through the left pedicle into the anterior vertebral body. The methylmethacrylate was mixed and injected slowly into the bilateral sacrum and L5 vertebral body under CT guidance. After waiting approximately 20 minutes for the methylmethacrylate to harden, the needles were removed. A bandage was applied. Postprocedure scan revealed no acute complications. FINDINGS: Cement partially fills the bilateral sacral ala without extravasation. At L5 cement fills the left side of the vertebral body without extravasation. Sedation was managed by anesthesia. Please see separate anesthesia note. Proceduralists: Dm William MD and Dr. julius Vasques MD, present for the entire procedure. Procedure Note Tomas Falcon MD - 05/22/2022 EXAMINATION: CT GUIDED SACROPLASTY/. L5 vertebroplasty. CLINICAL HISTORY: Bilateral sacral insufficiency fractures and F8iglmldwzn compression fracture COMPARISON: MRI thoracic and lumbar spine 04/09/2022 PROCEDURE: Informed consent was obtained. Preprocedure timeout was performed. Thesacrum and L5 vertebral body were identified following a preprocedure planning CTscan. The overlying skin was prepped and draped in a sterile fashion. 1%lidocaine was used for skin and periosteal anesthesia. A 13-gauge Davion needle was advanced into the anterior right sacrum. Asecond 13-gauge Davion needle was advanced into the anterior left sacrum. Ce68-fvgng Davion needle was advanced through the left pedicle into the anteriorvertebral body. The methylmethacrylate was mixed and injected slowly into the bilateralsacrum and L5 vertebral body under CT guidance. After waiting approximately 20minutes for the methylmethacrylate to harden, the needles were removed. A bandagewas applied. Postprocedure scan revealed no acute complications. FINDINGS: Cement partially fills the bilateral sacral ala withoutextravasation. At L5 cement fills the left side of the vertebral body withoutextravasation. Sedation was managed by anesthesia. Please see separate anesthesia note. Proceduralists: Dm William MD and Dr. julius Vasques MD, present for the entire procedure. IMPRESSION Successful sacroplasty and L5 vertebroplasty. I have personally reviewed the image(s) and the resident's interpretationand agree with the findings, Tomas Falcon at 05/22/2022 7:58 PM Thank you for letting us participate in the care of this patient. If youare a health care provider and have any questions regarding this report,please contact the number below. For patients who have questions please contactthe health plant care worker that requested your imaging first. Electronically signed by: Tomas Falcon Radiology [employer]([phone]), at 05/22/2022 7:58 PM Tressa Ivory DEVULCANIZER CHARGER IMG CT ORDERABLES documented in this encounter Visit Diagnoses Diagnosis Sacral insufficiency fracture with delayed healing, subsequent encounter documented in this encounter Care Teams Neon Sign Mechanic Relationship Specialty Start Date End Date Reji Adams MD [facility] GENERAL [place] [address] PCP - General General Internal Medicine 07/13/15 documented as of this encounter
--- OUTSIDE RECORDS SUMMARY | 2024-07-09 11:08 | XMS_ITS | Encounter Summary ---
Author Organization [facility] Address [facility] [place] [address] Care Team Providers Care Condominium Association Manager Name Role Phone Reji Adams MD Primary Care Provider Reason for Referral * Consultation (Routine) - Duplicate Referral Specialty Diagnoses / Procedures Referred By Duglas arizmendi Referred To Contact Gastroenterology Diagnoses Constipation, unspecified constipation type Amaris Esteban MD [facility] [place] [address] [facility] End[address] [place] [address] Referral ID Status Reason Start Date Expiration Date Visits Requested Visits Authorized [id number] Duplicate Referral Test Only 2 07/10/2023 1 1 Reason for Visit * Reason Comments Constipation Nausea Abdominal Pain Encounter Details Date Type Department Care Team (Late st Contact Info) Description 07/09/2022 8:57 PM EST - 07/10/2022 1:40 AM EST [place] [id number] Gonzalez Jackson DO [facility] [place] [address] Amrita Christianson MD [facility] [place] [address] Constipation, unspecified constipation type Discharge Disposition: Home Social History Tobacco Use [...] Sign Reading Time Taken Comments Blood Pressure 140/87 07/10/2022 1:37 AM EST Pulse 72 07/10/2022 1:37 AM EST Temperature 36.5 ??C (97.7 ??F) 07/10/2022 1:37 AM ES T Respiratory Rate 18 07/10/2022 1:37 AM EST Oxygen Saturation 99% 07/10/2022 1:37 AM EST Inhaled Oxygen Concentration - - Weight 86.2 kg (190 lb) 07/09/2022 8:29 PM EST Height - - Body Mass Index 26.5 05/22/2022 1:01 PM EDT documented in this encounter Discharge Instructions * Discharge Instructions* Amaris Esteban MD - 07/10/2022 1:17 AM EST You were seen in the ED today for constipation and stool changes. Your evaluation was reassuring that you do not have an emergent medical condition. You have been referred to gastroenterology for a colonoscopy to further evaluate your constipation and changes in your stool. For your constipation, you may use miralax up to 2 capfuls in the morning and 2 capfuls at night. You may also take 2 tablets of a stool softener called colace (200mg) in the morning and 2 tablets (200mg) at night. If you are still having trouble after these stool softeners, you may add senna tablets--take these as directed on the package. Please take all of your medications as scheduled. You should rest appropriately. You should return to the Emergency Department for reevaluation if you are becoming more ill, have fever over 100.4 F, chest pain, difficulty breathing, loss of consciousness, have worsening pain or develop any new symptoms or concerns. Future Appointments Date Time Provider Department Center 08/05/2022 4:30 PM Kristofer Ravi MD [facility] GASTRO [facility] 08/06/2022 11:00 AM Thad Jolley MD [facility] 08/20/2022 10:30 AM Adenike Padgett AUD [facility] AUDIO [facility] 08/20/2022 11:30 AM Savanah Hernandez APRN [facility] FARHAN [facility] 08/22/2022 10:00 AM Frantz English DPM [facility] SURG [facility] 08/29/2022 10:40 AM Reji Adams MD [facility] PCP: Reji Adams MD at [phone] * Attachments The following attachments cannot be sent through Care Everywhere. * Constipation (Sami) documented in this encounter Medications at Time [...] daily as needed for Anxiety. 90 tablet 05/30/2022 07/13/2022 methylPREDNISolone (MEDROL DOSPACK) 4 mg Tablets, Dose [...] daily. 03/17/2023 documented as of this encounter ED Notes * Leah Wells RN - 07/10/2022 1:35 AM EST Pt discharged from the emergency department. All discharge instructions are provided and no new needs/concerns verbalized. They appear in no apparent distress with even and unlabored respirations andare ambulatory from the department with a balanced and steady gait. Questions answered. * Leah Wells RN - 07/10/2022 12:36 AM EST Tap water enema in place * Seth Brannon MD - 07/09/2022 11:11 PM EST ED PROVIDER NOTE Patient: Ken Mckeon Age (): 76 y.o. (1945) SUBJECTIVE HPI: Ken Mckeon is a 76 y.o. male with a PMHx of metastatic prostate CA who presented to the ED for changes to stool caliber and constipation. He first noticed constipation beginning a few weeks ago. Since this time he has been noticing changes to his stool caliber. His bowel movements are more narrow in warm shape than before. He also endorses a new unintentional approximately 8 pounds weight loss over the last couple weeks. He has been eating normally despite this. He also has some abdominal pain, diffuse though worse the bilateral upper quadrant. He denies fevers or chills, nausea or vomiting. ROS: A 10 point review of systems was performed and was negative aside from pertinent positives listed in HPI. OBJECTIVE Vital Signs: Patient Vitals for the past 24 hrs: Temp Pulse Resp BP SpO2 O2 Device 07/09/222025 36.1 ??C (96.9 ??F) 69 18 -- 100 % RA 07/09/222026 -- -- -- 144/86 -- -- Physical Exam Constitutional: General: He is not in acute distress. Appearance: He is not toxic-appearing. HENT: Head: Normocephalic and atraumatic. Right Ear: External ear normal. Left Ear: External ear normal. Nose: Nose normal. Mouth/Throat: Mouth: Mucous membranes are moist. Eyes: Extraocular Movements: Extraocular movements intact. Conjunctiva/sclera: Conjunctivae normal. Cardiovascular: Rate and Rhythm: Normal rate and regular rhythm. Heart sounds: No murmur heard. Pulmonary: Effort: Pulmonary effort is normal. Breath sounds: Normal breath sounds. Abdominal: General: Abdomen is flat. Palpations: Abdomen is soft. Comments: Tender to palpation in the bilateral upper quadrants, no rebound Genitourinary: Comments: Rectal exam notable for no masses Musculoskeletal: General: Normal range of motion. Cervical back: Normal range of motion and neck supple. Skin: General: Skin is warm and dry. Neurological: General: No focal deficit present. Mental Status: He is alert and oriented to person, place, and time. Psychiatric: Mood and Affect: Mood normal. Behavior: Behavior normal. Thought Content: Thought content normal. ED Course - Medications and fluid administered: Medications - No data to display ASSESSMENT & PLAN Ken Mckeon is a 76 y.o. male with a PMHx of metastatic prostate CA who presented to the ED for changes to stool caliber and constipation. With his weight loss, changes in stool caliber, and a history of metastatic cancer I'm concerned for a new mass. We've ordered a CT of the abdomen and pelvisto evaluate for this. If this is negative, I discussed the importance of following this up with a colonoscopy. Additionally, we will give him an enema to help with his stool burden at this time. Signed out to the oncoming care team. Seth Brannon MD 07/09/22 11:13 PM Seth Brannon MD Resident 07/09/22 [id number] Associated attestation - Gonzalez Jackson DO - 07/10/2022 10:00 PM EST ED ATTENDING ATTESTATION The patient was seen in conjunction with the resident physician. I have independently performed thekey portions of the history and physical exam. I have personally reviewed nursing notes, vital signs, and diagnostic studies including labs, imaging studies and EKGs. I have discussed the details of the case with the resident and agree with the assessment and plan as described in the resident's note, unless stated otherwise in my separate note. Did this case involve critical care? No documented in this encounter Miscellaneous Notes * ED Triage - Jada Avalos RN - 07/09/2022 8:27 PM EST Pt feeling constipation for 3 weeks, was seen at PCP and did what they said but still unable to have a good BM. Pt states nausea as well and abdominal pain associated with the constipation. Pt denies any vomiting. Pt has been urinating normally. Pt currently being treated for prostate CA as well.Pt takes prednisone, but denies taking any pain medications. documented in this encounter Plan of Treatment Upcoming Encounters Date Type Department Care Team (Late st Contact Info) Description 12/15/2024 11:30 AM EDT Office Visit Gastroenterology at [facility] [place] [address] Charline Ziegler MD [facility] [place] [address] Scheduled Referrals Name Type Priority Associated Diagnoses Orde r Schedule REFERRAL TO COLONOSCOPY PROCEDURE Outpatient Referral Routine Constipation, unspecified constipation type Ordered: 07/10/2022 documented as of this encounter Procedures Procedure Name Priority Date/Time Associated Diagnosis Comments CT ABDOMEN AND PELVIS W CONTRAST STAT 07/09/2022 11:56 PM EST HEMOGRAM STAT 07/09/2022 10:56 PM EST DIFFERENTIAL, AUTOMATED STAT 07/09/2022 10:56 PM EST HC CBC,PLT & AUTO DIFF STAT 10:56 PM EST COMPREHENSIVE METABOLIC PANEL STAT 07/09/2022 10:56 PM EST documented in this encounter Results * CT Abdomen & Pelvis w Contrast (07/09/2022 11:56 PM EST) Anatomical Region Laterality Modality Abdomen, Pelvis Computed Tomogra phy Impressions 07/10/2022 12:55 AM EST No acute finding. Abnormal sclerosis of the right superior pubic ramus. This could represent metastatic disease or healing fracture. Thank you for letting us participate in the care of this patient. ??If you are a health care provider and have any questions regarding this report, please contact the number below. ??For patients who have questions please contact the health wound care physician that requested your imaging first. ? Narrative 07/10/2022 12:55 AM EST EXAMINATION: CT ABDOMEN AND PELVIS W CONTRAST CLINICAL HISTORY: Bowel obstruction suspected hx metastatic prostate CA, presenting w/ weight loss and changes to stool caliber, ?CA progression TECHNIQUE: Helical CT of the abdomen and pelvis was performed following the intravenous administration of contrast. Administered 98.0 ml of OMNIPAQUE 350.00 mg/ml. COMPARISON: CT 11/30/2020 and sacral MRI 03/13/2022 FINDINGS: Partially imaged lung bases are unremarkable. The liver, spleen, adrenal glands, gallbladder, and pancreas are normal. Unchanged kidneys. Her graft bowel is nondilated. No free fluid or free air. Abdominal aorta is normal in caliber. No lymphadenopathy. Bladder is normal in contour, partially obscured by artifact. Review of bone windows reveals new irregular sclerosis of the right superior pubic ramus. Evidence of prior sacroplasty and left-sided L5 vertebroplasty. Procedure Note Tre Cr MD - 07/10/2022 EXAMINATION: CT ABDOMEN AND PELVIS W CONTRAST CLINICAL HISTORY: Bowel obstruction suspected hx metastatic prostate CA, presenting w/ weight loss and changes tostool caliber, ?CA progression TECHNIQUE: Helical CT of the abdomen and pelvis was performed followingthe intravenous administration of contrast. Administered 98.0 ml of DTXKJEUVJ153.00 mg/ml. COMPARISON: CT 11/30/2020 and sacral MRI 03/13/2022 FINDINGS: Partially imaged lung bases are unremarkable. The liver, spleen, adrenal glands, gallbladder, and pancreas are normal. Unchanged kidneys. Her graft bowel is nondilated. No free fluid or freeair. Abdominal aorta is normal in caliber. No lymphadenopathy. Bladder is normal in contour, partially obscured by artifact. Review of bone windows reveals new irregular sclerosis of the rightsuperior pubic ramus. Evidence of prior sacroplasty and left-sided [id number]. IMPRESSION No acute finding. Abnormal sclerosis of the right superior pubic ramus. This couldrepresent metastatic disease or healing fracture. Thank you for letting us participate in the care of this patient. If youare a health care provider and have any questions regarding this report,please contact the number below. For patients who have questions please contactthe health wound care physician that requested your imaging first. Gonzalez Jackson DO IMG CT ORDERABLES * Differential, Automated (07/09/2022 10:56 PM EST) Neutrophil % 65.3 % [facility] Neutrophil Absolute 3.34 1.70 - 6.10 x10(3)/[facility] Lymph % 22.5 % [facility] Lymphocytes Abs 1.2 0.9 - 3.2 x10(3)/[facility] Monocyte % 8.8 % [facility] Monocyte Abs 0.4 0.3 - 0.9 x10(3)/[facility] Eos % 2.2 % [facility] Eosinophils Abs 0.1 0.0 - 0.4 x10(3)/[facility] Basophil % 0.8 % [facility] Baso Absolute 0.0 0.0 - 0.1 x10(3)/[facility] Immature Gran % 0.40 % [facility] Comment: Immature granulocytes(IG's)percentage and absolute count will include metamyelocytes, myelocytes, and promyelocytes. Blood smears from CBCs yielding IG's will be scanned manually for concordance. If this scan disagrees with the automated IG or if promyelocytes are noted, a manual differential will be performed. Immature Gran Absolute 0.02 0.00 - 0.04 x10(3)/[facility] Blood 07/09/2022 10:5 6 PM EST 07/09/2022 11:05 PM EST Narrative Resulting Agency Comment Spec In Lab Seth Brannon MD HEMATOLOGY ORDERABLE S [facility] [place] [address] * (ABNORMAL) Hemogram (07/09/2022 10:56 PM EST) White Blood Cell 5.1 4.0 - 9.5 x10(3)/mc L [facility] Red Blood Cell 4.36(L) 4.58 - 5.54 x10(6)/mc L [facility] Hemoglobin 13.6(L) 13.7 - 16.5 g/dL [facility] Hematocrit 38.7(L) 40.5 - 48.5 % [facility] Mean Cell Volume 88.8 82.9 - 93.1 fL [facility] Mean Cell Hemoglobin 31.2 27.5 - 32.1 pg [facility] Mean Cell Hemoglobin Concentration 35.1 32.0 - 35.7 g/dL [facility] Platelet 175 145 - 357 x10(3)/mc L [facility] RDW Standard Deviation 44.7 36.0 - 45.0 fL [facility] RDW coefficient of variation 13.7 11.4 - 13.8 % [facility] Mean Platelet Volume 9.3 7.6 - 12.9 fL [facility] NRBC% auto 0.0 % [facility] NRBC Absolute 0.000 0.000 - 0.000 x10(3)/ L [facility] Blood 07/09/2022 10:5 6 PM EST 07/09/2022 11:05 PM EST Narrative Resulting Agency Comment Spec In Lab Seth Brannon MD HEMATOLOGY ORDERABLE S [facility] [place] [address] * Comprehensive metabolic panel (non-fasting) (07/09/2022 10:56 PM EST) Glucose 97 65 - 199 mg/dL [facility] Comment:Diabetes: >=200 mg/d L plus symptoms Blood Urea Nitrogen 15 10 - 20 mg/dL [facility] Creatinine 0.98 0.80 - 1.50 mg/dL [facility] Sodium 140 135 - 145 mmol/L [facility] Potassium Not Perf 3.5 - 5.0 [facility] Comment: Unable to quantitate due to sample hemolysis. ??Sample redraw suggested. Called by: DAO, Read back by: Elizabeth Valles, Date/Time:07/09/22 23:40. Please note: ??Patients with WBC >100,000 may have falsely elevated Potassium levels. ??For accurate Potassium quantification in these patients send serum separator tube (gold top) for subsequent determinations. ??Contact the Clinical Chemistry Laboratory if there are any questions. Chloride 105 98 - 107 mmol/L [facility] Carbon Dioxide 27 22 - 31 mmol/L [facility] Anion Gap 8 5 - 15 mmol/L [facility] Calcium 9.2 8.5 - 10.5 mg/dL [facility] Protein, Total 6.6 6.1 - 8.0 g/dL [facility] Albumin 4.4 3.2 - 5.2 g/dL [facility] Aspartate Aminotransferase Not Perf 0 - 39 [facility] Comment: Unable to quantitate due to sample hemolysis. ??Sample redraw suggested. Called by: DAO, Read back by: Elizabeth Valles, Date/Time:07/09/22 23:40. Alanine Aminotransferase Not Perf 0 - 55 [facility] Comment: Unable to quantitate due to sample hemolysis. ??Sample redraw suggested. Called by: DAO, Read back by: Elizabeth Valles, Date/Time:07/09/22 23:40. Alkaline Phosphatase 82 40 - 130 unit/L [facility] Bilirubin, Total 0.5 0.2 - 1.3 mg/dL [facility] Est Glomerular Filtration Rate 80 >=60 mL/min/1. 73 m?? [facility] Comment: This patient's estimated [...] and symptoms in addition to eGFR. Blood 07/09/2022 10:5 6 PM EST 07/09/2022 11:05 PM EST Narrative Resulting Agency Comment Spec In Lab Gonzalez Jackson CHEMISTRY ORDERABLES [facility] [place] [address] documented in this encounter Visit Diagnoses Diagnosis Constipation, unspecified constipation type documented in this encounter Administered Medications Inactive Administered Medications - up to 3 most recent administrations Medication Order MAR Action Action Date Dose Rate Site iohexoL (Omnipaque) (350 mg/mL) solution 0-200 mL 0-200 mL, Intravenous, ONCE PRN, 1 dose, Starting on Fri07/09/22 at 2344, Until Fri07/09/22 at 2344, Per Protocol, Warning Vesicant/Irritant Medication , Radiology Contrast, Routine Given 07/09/2022 11:44 PM EST 98 mLs documented in this encounter Active and Recently Administered Medications Times are shown in EST. PRN Medication Order 07/08/2022 07/09/2022 07/10/2022 iohexoL (Omnipaque) (350 mg/mL) solution 0-200 mL (COMPLETED) 0-200 mL, Intravenous, ONCE PRN, 1 dose, Starting on Fri07/09/22 at 2344, Until Fri07/09/22 at 2344, Per Protocol, Warning Vesicant/Irritant Medication , Radiology Contrast, Routine 2344 (Given - Provider: Ofelia Manzano) documented in this encounter Care Teams Condominium Association Manager Relationship Specialty Start Date End Date Reji Adams MD [facility] [address] PCP - General General Internal Medicine 07/13/15 documented as of this encounter
--- OUTSIDE RECORDS SUMMARY | 2024-07-09 11:08 | XMS_ITS | Encounter Summary ---
Author Organization [facility] [place] [address] Care Team Providers Care Associate Editor Name Role Phone Reji Adams MD Primary Care Provider [phone] Encounter Details Date Type Department Care Team (Late st Contact Info) Description 07/16/2022 Telephone [place] [address] Lucia Spangler Social History Tobacco Use Types Packs/Day Years [...] encounter Miscellaneous Notes * Telephone Encounter - Lucia Spangler - 07/16/2022 4:42 PM EST Ken Quiñonez Mckeon [id number] Diagnosis/Indication: Procedure: Colonoscopy Indication: Constipation, abdominal pain Sedation: IVCS Timeframe: within non-urgent Specific provider: first available OV needed: No Anticoagulation status: no documented anticoagulation use Please review patient chart to confirm if previous Endoscopy procedure was performed within system. If yes, take note of Anesthesia type used. If previous procedure found, and with MAC/propofol Anesthesia support was used, schedule this procedure with Anesthesia and skip the Anesthesia portion of questions. If not performed within system, not performed at all, or performed with IVCS, ask Anesthesia questions. SCHEDULING QUESTIONS (ask all patient these questions) 1. Have you ever had a/an Colonoscopy before? Yes: Date 01/25/2020 If yes, did you have any problems with the procedure (such as waking up during the procedure, pain or difficulties afterwards, etc.)? No What type of sedation was used: IV Conscious Sedation 2. Do you take any blood thinners or have you been diagnosed with a bleeding disorder that increases your risk of bleeding with procedures? No 3. Do you have a Pacemaker or Defibrillator device? If yes, send pool message to Cardiology with patient information and date or procedure. No 4. Are you a diabetic? If yes, call PCP/managing provider to discuss use of prep and any questions or concerns related to. No 5. Do you take any iron supplements or vitamins that contain iron? No 6. Do you have a preference regarding the gender of your provider? No ANESTHESIA QUESTIONS (YES to any question, please book with Anesthesia support) 7. Have you ever been diagnosed with Pulmonary Hypertension and/or Congential Heart Disease? No 8. Have you been diagnosed with A-Fib (atrial fibrillation) that is NOT being well controled with medications? No 9. Have you ever had an allergic or adverse reaction to Fentanyl or Versed? No 10. Have you had a problem with sedation or anesthesia? (Waking up during procedure, extreme confusion after, etc.) No 11. Do you have a diagnosis of Obstructive Sleep Apnea that requires the use of a c-pap machine? No 12. Do you use an oxygen tank at home? No 13. Do you use a rescue inhaler more than twice per day? (COPD, severe asthma) No 14. Do you experience breathing problems when you lay flat for a period of time? No 15. Do you take prescription narcotic pain medications, including suboxone or methodone? No SCHEDULING CONFIRMATIONS: Please note any and all parts of your conversation with the patient here. 16. We offer all new patients an opportunity to have an appointment with one of our associate care providers to learn more about your upcoming procedure, ask questions and get answers. These appointments are offered via telehealth. Would you be interested in scheduling this appointment? (Only ask if NEW referral patient; skip this question if GI provider ordered the procedure.) No 17. Is there any other information or concerns you would like to us to share with your care team inrelation to your upcoming scheduled procedure? Yes: Cancer meds 18. You must have a responsible green party who will drive you to your procedure, stay on campus for the entire duration of your procedure, and drive you home from your procedure. Who will likely be your bulk driver for the procedure? *Please Verify the height and weight, and adjust if height and/or weight have changed* Estimated body mass index is 26.5 kg/m?? as calculated from the following: Height as of 05/22/22: 180.3 cm (5' 11). Weight as of 07/09/22: 86.2 kg (190 lb). Age:76 y.o. documented in this encounter Plan of Treatment Upcoming Encounters Date Type Department Care Team (Late st Contact Info) Description 12/15/2024 11:30 AM EDT Office Visit [place] [address] Charline Ziegler MD [facility] [place] [address] documented as of this encounter Visit Diagnoses Not on filedocumented in this encounter Care Teams Associate Editor Relationship Specialty Start Date End Date Reji Adams MD [facility] [address] PCP - General General Internal Medicine 07/13/15 documented as of this encounter
--- OUTSIDE RECORDS SUMMARY | 2024-07-09 11:08 | XMS_ITS | Encounter Summary ---
Author Organization [facility] Address [facility] [address] Care Team Providers Care Visual Journalist Name Role Phone Reji Adams MD Primary Care Provider [phone] Encounter Details Date Type Department Care Team (Late st Contact Info) Description 06/06/2022 Telephone [place] [phone] Loreta Stevens Social History Tobacco Use Types Packs/Day Years [...] Miscellaneous Notes * Telephone Encounter - Loreta Stevens - 06/06/2022 9:34 AM EST Pt called requesting to reschedule appt. He thinks he may need to be seen by an MD. documented in this encounter Plan of Treatment Upcoming Encounters Date Type Department Care Team (Late st Contact Info) Description 12/15/2024 11:30 AM EDT Office Visit [place] [address] Charline Ziegler MD [facility] [place] [address] documented as of this encounter Visit Diagnoses Not on filedocumented in this encounter Care Teams Visual Journalist Relationship Specialty Start Date End Date Reji Adams MD [facility] GENER[facility] [place] [address] PCP - General General Internal Medicine 07/13/15 documented as of this encounter
--- OUTSIDE RECORDS SUMMARY | 2024-07-09 11:08 | XMS_ITS | Encounter Summary ---
Author Organization [place] [address] Care Team Providers Care Dentist Attendant Name Role Phone Reji Adams MD Primary Care Provider [phone] Encounter Details Date Type Department Care Team (Latest Contact Info) Description 07/01/2022 Travel Social History Tobacco Use Types Packs/Day [...] 11:30 AM EDT Office Visit [place] [address] Charline Ziegler MD [facility] [place] [address] documented as of this encounter Visit Diagnoses Not on filedocumented in this encounter Care Teams Dentist Attendant Relationship Specialty Start Date End Date Reji Adams MD [facility] [place] [address] PCP - General General Internal Medicine 07/13/15 documented as of this encounter
--- OUTSIDE RECORDS SUMMARY | 2024-07-09 11:08 | XMS_ITS | Encounter Summary ---
Author Organization [facility] Address [facility] [place] [address] Care Team Providers Care Cloth Roll Winder Name Role Phone Reji Adams MD Primary Care Provider [phone] Encounter Details Date Type Department Care Team (Late st Contact Info) Description 05/30/2022 Notes [place] [address] Linda William MD [facility] [place] [address] Social History Tobacco Use Types Packs/Day Years [...] this encounter Progress Notes * Dm William - 05/30/2022 3:16 PM EDT Called patient to come in for a CT sacrum to evaluate his leg pain. The pain is limited to the right upper leg/buttock and right groin. It was present before the procedure, but feels it has gotten worse since the procedure. The pain associated with sacral and L5 fracture has significantly improved. CT sacrum shows no new findings. The sacral and L vertebral body cement have not migrated. The symptoms do not fit a specific nerve distribution and etiology is unclear. Recommended patient follows up with neurosurgery. documented in this encounter Plan of Treatment Upcoming Encounters Date Type Department Care Team (Late st Contact Info) Description 12/15/2024 11:30 AM EDT Office [place] [address] Charline Ziegler MD [facility] [place] [address] documented as of this encounter Visit Diagnoses Not on filedocumented in this encounter Care Teams Cloth Roll Winder Relationship Specialty Start Date End Date Reji Adams MD [facility] GENERAL [place] [address] PCP - General General Internal Medicine 07/13/15 documented as of this encounter
--- OUTSIDE RECORDS SUMMARY | 2024-07-09 11:08 | XMS_ITS | Encounter Summary ---
Author Organization [facility] Address [facility] [place] [address] Care Team Providers Care Dough Machine Operator Name Role Phone Reji Adams MD Primary Care Provider [phone] Reason for Visit * Reason Onset Date Comments Triage 05/29/2022 Encounter Details Date Type Department Care Team (Late st Contact Info) Description 05/29/2022 Telephone Internal Medicine at [address] [address] Reji Adams MD [facility] [place] [address] Triage Social History Tobacco Use Types Packs/Day [...] Telephone Encounter - Dafne Hickey RN - 05/29/2022 9:48 AM EDT Caller: patient Learning Needs Assessment Reviewed: No Subjective Patient presents with: Triage Objective/Assessment Symptom onset: since procedure last friday Location: n/a Duration: n/a Characteristics: pt calling in reporting fatigue since his sarcoplasty/verteplasty, endorses pain at site of procedure, no s/s of infection, afebrile, no other symptoms Aggravating factors: recent procedure Relieving factors: none noted Pertinent Past Medical History: Past Medical History: Diagnosis Date ??? BPH (benign prostatic hyperplasia) ??? Neck pain 08/24/2012 ??? OA (osteoarthritis) of knee right ??? Spinal cord injury at 2015 Plan Intervention/Plan/ Follow Up: pt will take home covid test today, scheduled to see Dr. Palma tomorrow, will send [facility] with covid test results * Telephone Encounter - Elli Fox - 05/29/2022 9:31 AM EDT Message: Patient states he has no energy. Patient states he does not have any other symptoms, just feeling lethargic. Patient further states he has no Covid symptoms. Patient declined an FUMV or Virtual Care visit. This field underwriter was unable to reach a nurse. Please call patient back to discuss. Ask caller their first and last name and relationship to the patient: self Phone: Telephone Information: Best time to call back: any Ok to leave a message: y Ok to send - message: n Offered Appointment: Virtual, deavn MA/Nurse/[place] contacted via: Message: y Call: y Pager: n documented in this encounter Plan of Treatment Upcoming Encounters Date Type Department Care Team (Late st Contact Info) Description 12/15/2024 11:30 AM EDT Office [place] [address] Charline Ziegler MD [facility] [place] [address] documented as of this encounter Visit Diagnoses Not on filedocumented in this encounter Care Teams Dough Machine Operator Relationship Specialty Start Date End Date Reji Adams MD [facility] [place] [address] PCP - General General Internal Medicine 07/13/15 documented as of this encounter
--- OUTSIDE RECORDS SUMMARY | 2024-07-09 11:08 | XMS_ITS | Encounter Summary ---
Author Organization [facility] Address [facility] [place] [address] Care Team Providers Care Preventative Maintenance Technician Name Role Phone Reji Admas MD Primary Care Provider Encounter Details Date Type Department Care Team (Late st Contact Info) Description 05/29/2022 [place] [address] Linda William MD [facility] [address] Social History Tobacco Use Types Packs/Day Years [...] encounter Progress Notes * Dm William - 05/29/2022 1:57 PM EDT Patient called about new right gluteal and posterior thigh radicular pain. He has had worsening aching and burning pain since last /Friday. This is new pain he has not had before and rates it02/03. His fracture associated back pain has improved since the procedure. I reviewed the post sacroplasty imaging. The cement did respect the neuroformainal lucio. Concern is for nerve irritation after the procedure. Plan is to give a medrol dose pack and follow up in 5 days. He does take 5mg prednisone daily as part of his chemo. I spoke to a oncologist at [facility] gy/Onocology to discuss any issues with the dose pack, there are none. Patient has had a medrol dose pack in the past with no issues. documented in this encounter Plan of Treatment Upcoming Encounters Date Type Department Care Team (Late st Contact Info) Description 12/15/2024 11:30 AM EDT Office [place] [address] Charline Ziegler MD [facility] [place] [address] documented as of this encounter Visit Diagnoses Not on filedocumented in this encounter Care Teams Preventative Maintenance Technician Relationship Specialty Start Date End Date Reji Adams MD [facility] [place] [address] PCP - General General Internal Medicine 07/13/15 documented as of this encounter
--- OUTSIDE RECORDS SUMMARY | 2024-07-09 11:08 | XMS_ITS | Encounter Summary ---
Author Organization [facility] Address [facility] [place] [address] Care Team Providers Care Dinker Name Role Phone Reji Adams MD Primary Care Provider [phone] Encounter Details Date Type Department Care Team (Late st Contact Info) Description 07/07/2022 Telephone [place] [phone] Darling Dickens MD [facility] [place] [address] Social History Tobacco Use Types Packs/Day Years [...] encounter Miscellaneous Notes * Telephone Encounter - Darling Dickens MD - 07/07/2022 3:00 PM EST Received a page to the commissioned police officer pager and called back Mr. Mckeon. He reports that he underwent a spinal surgery in April and since that time has had worsened constipation. He denies taking any opiatesand reports no issues with LE numbness or weakness. He was seen on 07/01/22 by GIM at which time therecommendation was to take Miralax. He took one dose daily for several days and then took 4 doses in one day with a small amount of output. He then switched to bisacodyl suppositories and had again just a small amount of output. He has been trying to drink a lot of water and increasing his fiber intake. Recommended a trial of Miralax BID and encouraged him to continue it even if it seems as though it is not working as it may take several days. Also recommended that he attempt enemas. He would like to be seen again in our clinic for constipation. Will try to set him up with an appointment. Darling Dickens MD PGY-5 Gastroenterology documented in this encounter Plan of Treatment Upcoming Encounters Date Type Department Care Team (Late st Contact Info) Description 12/15/2024 11:30 AM EDT Office [place] [address] Charline Ziegler MD [facility] [place] [address] documented as of this encounter Visit Diagnoses Not on filedocumented in this encounter Care Teams Dinker Relationship Specialty Start Date End Date Reji Adams MD [facility] [place] [address] PCP - General General Internal Medicine 07/13/15 documented as of this encounter
--- OUTSIDE RECORDS SUMMARY | 2024-07-09 11:08 | XMS_ITS | Encounter Summary ---
[place] [address] Care Team Providers Care Quality Control Systems Manager Name Role Phone Reji Adams MD Primary Care Provider [phone] Encounter Details Date Type Department Care Team (Latest Contact Info) Description 07/01/2022 3:05 PM EST Laboratory Appointment Lab [address] [place] [phone] Right lower quadrant pain Social History Tobacco [...] 11:30 AM EDT Office [place] [address] Charline Ziegler MD [facility] [place] [address] documented as of this encounter Procedures Procedure Name Priority Date/Time Associated Diagnosis Comments HEMOGRAM STAT 07/01/2022 3:07 PM EST Right lower quadrant pain DIFFERENTIAL, AUTOMATED STAT 07/01/2022 3:07 PM EST Right lower quadrant pain URINALYSIS WITH REFLEX CULTURE Routine 07/01/2022 3:07 PM EST Right lower quadrant pain HC CBC,PLT & AUTO DIFF STAT 3:07 PM EST Right lower quadrant pain HC VENIPUNCTURE STAT 07/01/2022 3:07 PM EST Right lower quadrant pain COMPREHENSIVE METABOLIC PANEL STAT 07/01/2022 3:07 PM EST Right lower quadrant pain documented in this encounter Results * Differential, Automated (07/01/2022 3:07 PM EST) Neutrophil % 74.7 % [facility] Neutrophil Absolute 3.81 1.70 - 6.10 x10(3)/[facility] Lymph % 17.6 % [facility] Lymphocytes Abs 0.9 0.9 - 3.2 x10(3)/mcL [facility] Monocyte % 5.9 % [facility] Monocyte Abs 0.3 0.3 - 0.9 x10(3)/[facility] Eos % 1.0 % [facility] Eosinophils Abs 0.0 0.0 - 0.4 x10(3)/[facility] Basophil % 0.6 % [facility] Baso Absolute 0.0 0.0 - 0.1 x10(3)/[facility] Immature Gran % 0.20 % [facility] Comment: Immature granulocytes(IG's)percentage and absolute count will include metamyelocytes, myelocytes, and promyelocytes. Blood smears from CBCs yielding IG's will be scanned manually for concordance. If this scan disagrees with the automated IG or if promyelocytes are noted, a manual differential will be performed. Immature Gran Absolute 0.01 0.00 - 0.04 x10(3)/[facility] Blood 07/01/2022 3:07 PM EST 07/01/2022 3:18 PM EST Narrative Resulting Agency Comment Spec In Lab Usha GUTIERREZ HEMATOLOGY ORDERABLE S Performing Organization Address City/State/[facility] Co de Phone Number [facility] [place] [address] * (ABNORMAL) Hemogram (07/01/2022 3:07 PM EST) White Blood Cell 5.1 4.0 - 9.5 x10(3)/mc L [facility] Red Blood Cell 4.33(L) 4.58 - 5.54 x10(6)/mc L [facility] Hemoglobin 13.5(L) 13.7 - 16.5 g/dL [facility] Hematocrit 38.9(L) 40.5 - 48.5 % [facility] Mean Cell Volume 89.8 82.9 - 93.1 fL [facility] Mean Cell Hemoglobin 31.2 27.5 - 32.1 pg [facility] Mean Cell Hemoglobin Concentration 34.7 32.0 - 35.7 g/dL [facility] Platelet 186 145 - 357 x10(3)/mc L [facility] RDW Standard Deviation 44.8 36.0 - 45.0 fL [facility] RDW coefficient of variation 13.5 11.4 - 13.8 % [facility] Mean Platelet Volume 9.1 7.6 - 12.9 fL [facility] NRBC% auto 0.0 % [facility] NRBC Absolute 0.000 0.000 - 0.000 x10(3)/mc L [facility] Blood 07/01/2022 3:07 PM EST 07/01/2022 3:18 PM EST Narrative Resulting Agency Comment Spec In Lab Usha GUTIERREZ HEMATOLOGY ORDERABLE S [facility] [place] [address] * Comprehensive metabolic panel (non-fasting) (07/01/2022 3:07 PM EST) Glucose 99 65 - 199 mg/dL [facility] Comment:Diabetes: >=200 mg/d L plus symptoms Blood Urea Nitrogen 16 10 - 20 mg/dL [facility] Creatinine 0.90 0.80 - 1.50 mg/dL [facility] Sodium 143 135 - 145 mmol/L [facility] Potassium 4.1 3.5 - 5.0 mmol/L [facility] Comment: Please note: ??Patients with WBC >100,000 may have falsely elevated Potassium levels. ??For accurate Potassium quantification in these patients send serum separator tube (gold top) for subsequent determinations. ??Contact the Clinical Chemistry Laboratory if there are any questions. Chloride 105 98 - 107 mmol/L [facility] Carbon Dioxide 28 22 - 31 mmol/L [facility] Anion Gap 10 5 - 15 mmol/L [facility] Calcium 9.2 8.5 - 10.5 mg/dL [facility] Protein, Total 6.6 6.1 - 8.0 g/dL [facility] Albumin 4.3 3.2 - 5.2 g/dL [facility] Aspartate Aminotransferase 23 0 - 39 unit/L [facility] Alanine Aminotransferase 14 0 - 55 unit/L [facility] Alkaline Phosphatase 84 40 - 130 unit/L [facility] Bilirubin, Total 0.8 0.2 - 1.3 mg/dL [facility] Est Glomerular Filtration Rate 89 >=60 mL/min/1. 73 m?? [facility] Comment: This patient's estimated GFR [...] Tenorio MD CHEMISTRY ORDERABLES Performing Organization Address [facility] Co de Phone Number [facility] [place] [address] * Lipase (07/01/2022 3:07 PM EST) Lipase 32 0 - 60 unit/L [facility] Blood 07/01/2022 3:07 PM EST 07/01/2022 3:18 PM EST Narrative Resulting Agency Comment Spec In Lab Geraldo Tenorio MD CHEMISTRY ORDERABLES Performing Organization Address [facility] Co de Phone Number [facility] [place] [address] * (ABNORMAL) Urinalysis with reflex Culture (07/01/2022 3:07 PM EST) Glucose, Urine Dipstick Negative Negative mg/dL [facility] Protein, Urine Dipstick Negative Negative mg/dL [facility] Bilirubin, Urine Dipstick Negative Negative mg/dL [facility] Comment: Clinical correlation required for positive Urine Bilirubin results as false positive may occur with some drugs and drug related products. If a false positive is suspected a serum total bilirubin should be considered if clinically indicated. Urobilinogen, Urine Dipstick Normal Normal mg/dL [facility] pH, Urn (dipstick) 6.5 5.0 - 8.0 [facility] Blood, Urine Dipstick Negative Negative mg/dL [facility] Ketone, Urine Dipstick 15(A) Negative mg/dL [facility] Nitrite, Urine Dipstick Negative Negative [facility] Leukocytes, Urine Dipstick Negative Negative mcL [facility] Appearance, Urine Dipstick Cloudy(A) Clear [facility] Specific [place] Urine Automated 1.015 1.005 - 1.030 [facility] Color, Urine Dipstick Yellow Yellow [facility] Reflex to Culture No [facility] Clean Catch Urine 07/01/2022 3:07 PM EST 07/01/2022 3:17 PM EST Narrative Resulting Agency Comment Spec In Lab Geraldo Tenorio MD URINE ORDERABLES Performing Organization Address City/State/[facility] Co de Phone Number [facility] [place] [address] documented in this encounter Visit Diagnoses Diagnosis Right lower quadrant pain Abdominal pain, right lower quadrant documented in this encounter Care Teams Quality Control Systems Manager Relationship Specialty Start Date End Date Reji Adams MD [facility] [place] [address] PCP - General General Internal Medicine 07/13/15 documented as of this encounter
--- OUTSIDE RECORDS SUMMARY | 2024-07-09 11:08 | XMS_ITS | Encounter Summary ---
[place] [address] Care Team Providers Care Dive Superintendent Name Role Phone Reji Adams MD Primary Care Provider [phone] Reason for Referral * Diagnostic Test (Routine) - Closed Specialty Diagnoses / Procedures Referred By Contsushma arizmendi Referred To Contact Radiology Diagnoses Radiculopathy of lumbosacral region Procedures CT Lumbar Spine wo Contrast (Generic) Linda William MD [facility] [place] [place] [address] [facility] [place] [address] Referral ID Status Reason Start Date Expiration Date V isits Requested Visits Authorized [id number] Closed Specialty Service Requested 05/30/2022 11/28/2023 1 1 Encounter Details Date Type Department Care Team (Late st Contact Info) Description 05/30/2022 [place] [address] Linda William MD [facility] [place] [address] Radiculopathy of lumbosacral region Social History Tobacco Use Types Packs/Day Years [...] EDT Office [place] [address] Charline Ziegler MD [facility] [place] [address] documented as of this encounter Results * CT Lumbar Spine wo Contrast (Generic) (05/30/2022 3:16 PM EDT) Anatomical Region Laterality Modality L-spine Computed Tomogra phy Impressions 05/30/2022 3:45 PM EDT No evidence for complication following bilateral sacroplasty and L5 vertebroplasty. Thank you for letting us participate in the care of this patient. ??If you are a health care provider and have any questions regarding this report, please contact the number below. ??For patients who have questions please contact the health respiratory care instructor that requested your imaging first. ? Narrative 05/30/2022 3:45 PM EDT EXAMINATION: CT sacrum WO CONTRAST (GENERIC) CLINICAL HISTORY: radiculopathy after sacroplasty TECHNIQUE: CT sacrum performed without intravenous contrast administration. COMPARISON: Images from the sacral plasty dated 05/22/2022. FINDINGS: The distribution of polymethylmethacrylate within the left side of the L5 vertebra and within the bilateral sacral ala unchanged in appearance and distribution. No impingement upon the sacral neural foramen. Fracture sclerosis within both sacral ala again identified. Solid posterior osseous fusion of the visualized lower lumbar spine again noted. No new fractures are identified. The bilateral L4-L5 and L5-S1 neural foramen are patent. Visualized soft tissues are unremarkable. L4-L5 laminectomy changes again noted. Bilateral hip arthroplasties noted. Procedure Note Tomas Falcon MD - 05/30/2022 EXAMINATION: CT sacrum WO CONTRAST (GENERIC) CLINICAL HISTORY: radiculopathy after sacroplasty TECHNIQUE: CT sacrum performed without intravenous contrast administration. COMPARISON: Images from the sacral plasty dated 05/22/2022. FINDINGS: The distribution of polymethylmethacrylate within the left side of theL5 vertebra and within the bilateral sacral ala unchanged in appearance and distribution. No impingement upon the sacral neural foramen. Fracturesclerosis within both sacral ala again identified. Solid posterior osseous fusion ofthe visualized lower lumbar spine again noted. No new fractures areidentified. The bilateral L4-L5 and L5-S1 neural foramen are patent. Visualized softtissues are unremarkable. L4-L5 laminectomy changes again noted. Bilateral hip arthroplasties noted. IMPRESSION No evidence for complication following bilateral sacroplasty and L5 vertebroplasty. Thank you for letting us participate in the care of this patient. If youare a health care provider and have any questions regarding this report,please contact the number below. For patients who have questions please contactthe health respiratory care instructor that requested your imaging first. Tomas Falcon MD IMG CT ORDERABLES documented in this encounter Visit Diagnoses Diagnosis Radiculopathy of lumbosacral region Thoracic or lumbosacral neuritis or radiculitis, unspecified Radiculopathy of lumbosacral region Thoracic or lumbosacral neuritis or radiculitis, unspecified documented in this encounter Care Teams Dive Superintendent Relationship Specialty Start Date End Date Reji Adams MD [facility] [place] [address] PCP - General General Internal Medicine 07/13/15 documented as of this encounter
--- OUTSIDE RECORDS SUMMARY | 2024-07-09 11:08 | XMS_ITS | Encounter Summary ---
Author Organization [facility] [place] [address] Care Team Providers Care Environmental Sciences Professor Name Role Phone Reji Adams MD Primary Care Provider [phone] Encounter Details Date Type Department Care Team (Late st Contact Info) Description 05/22/2022 Telephone Audiology at [address] [id number] May Lopez Social History Tobacco Use Types Packs/Day Years [...] encounter Miscellaneous Notes * Telephone Encounter - May Lopez - 05/22/2022 4:53 PM EDT I called today to reschedule his 05/27/22 appointments. I left a vm for him to call back to confirmthe new date and times. Future Appointments Date Time Provider Department Center 06/12/2022 2:30 PM Daya Gutierrez, MS [facility] AUDIO [facility] 06/12/2022 3:30 PM Savanah Hernandez APRN [facility] 06/27/2022 9:20 AM Reji Adams MD [facility] 07/02/2022 11:00 AM Frantz English DPM AP[facility] SURG APD thank you May Lopez Senior Clinical Boom Worker [place] [address] fax: [phone] [facility] documented in this encounter Plan of Treatment Upcoming Encounters Date Type Department Care Team (Late st Contact Info) Description 12/15/2024 11:30 AM EDT Office [place] [address] Charline Ziegler MD [facility] [place] [address] documented as of this encounter Visit Diagnoses Not on filedocumented in this encounter Care Teams Environmental Sciences Professor Relationship Specialty Start Date End Date Reji Adams MD [facility] GENER[place] [address] PCP - General General Internal Medicine 07/13/15 documented as of this encounter
--- OUTSIDE RECORDS SUMMARY | 2024-07-09 11:08 | XMS_ITS | Encounter Summary ---
Author Organization [facility] [place] [address] Care Team Providers Care Bonderizer Operator Name Role Phone Reji Adams MD Primary Care Provider [phone] Encounter Details Date Type Department Care Team (Latest Contact Info) Description 05/21/2022 Travel Social History Tobacco Use Types Packs/Day [...] 11:30 AM EDT Office [place] [address] Charline Ziegler MD [facility] [place] [address] documented as of this encounter Visit Diagnoses Not on filedocumented in this encounter Care Teams Bonderizer Operator Relationship Specialty Start Date End Date Reji Adams MD [facility] GENER[place] [address] PCP - General General Internal Medicine 07/13/15 documented as of this encounter
--- OUTSIDE RECORDS SUMMARY | 2024-07-09 11:08 | XMS_ITS | Encounter Summary ---
Author Organization [facility] Address [facility] [place] [address] Care Team Providers Care Data Warehouse Analyst Name Role Phone Reji Adams MD Primary Care Provider [phone] Reason for Referral * Diagnostic Test (Routine) - Closed Specialty Diagnoses / Procedures Referred By Contac t Referred To Contact Radiology Diagnoses Radiculopathy of lumbosacral region Procedures CT Lumbar Spine wo Contrast (Generic) Linda William MD [facility] [place] [address] [facility] [place] [address] Referral ID Status Reason Start Date Expiration Date V isits Requested Visits Authorized [id number] Closed Specialty Service Requested 05/30/2022 11/28/2023 1 1 Reason for Visit * Diagnostic Test (Routine) - Closed Specialty Diagnoses / Procedures Referred By Contac t Referred To Contact Radiology Diagnoses Radiculopathy of lumbosacral region Procedures CT Lumbar Spine wo Contrast (Generic) Linda William MD [facility] [place] [address] [facility] [place] [address] Referral ID Status Reason Start Date Expiration Date V isits Requested Visits Authorized [id number] Closed Specialty Service Requested 05/30/2022 11/28/2023 1 1 Encounter Details Date Type Department Care Team (Latest Contact Info) Description 05/30/2022 1:51 PM EDT - 05/30/2022 11:59 PM EDT Hospital Encounter CT Scan at [facility] [place] [address] Tomas Falcon MD [facility] [place] [address] Radiculopathy of lumbosacral region Discharge Disposition: Home Social History Tobacco [...] 11:30 AM EDT Office [place] [phone] Charline Ziegler MD [facility] [place] [address] documented as of this encounter Procedures Procedure Name Priority Date/Time Associated Diagnosis Comments CT LUMBAR SPINE WWO CONTRAST Routine 05/30/2022 3:16 PM EDT Radiculopathy of lumbosacral region documented in this encounter Results * CT Lumbar Spine [...] who have questions please contact the health out of school hours care worker that requested your imaging first. ? Electronically signed by: ROBERT Romano [facility] ([phone]), at 05/30/2022 3:45 PM Narrative 05/30/2022 3:45 PM EDT EXAMINATION: CT [...] patients who have questions please contactthe health out of school hours care worker that requested your imaging first. Tomas Falcon MD IMG CT ORDERABLES documented in this encounter Visit Diagnoses Diagnosis Radiculopathy of lumbosacral region Thoracic or lumbosacral neuritis or radiculitis, unspecified documented in this encounter Care Teams Data Warehouse Analyst Relationship Specialty Start Date End Date Reji Adams MD [facility] [place] [address] PCP - General General Internal Medicine 07/13/15 documented as of this encounter
--- OUTSIDE RECORDS SUMMARY | 2024-07-09 11:08 | XMS_ITS | Encounter Summary ---
[place] [address] Care Team Providers Care Group Work Program Director Name Role Phone Reji Adams MD Primary Care Provider [phone] Reason for Referral * Consultation (Routine) - Closed Specialty Diagnoses / Procedures Referred By Duglas arizmendi Referred To Contact Orthopaedics Diagnoses Other instability, right hip Pain in right hip Zurdo Daniel MD [address] [place] [address] [facility] [address] [place] [id number] Referral ID Status Reason Start Date Expiration Date V isits Requested Visits Authorized [id number] Closed Consult, Test & Treat PCP Updated and/or Approved 06/12/2022 06/12/2023 6 6 Encounter Details Date Type Department Care Team (Latest Contact Info) Description 06/12/2022 Transcribe Orders eDH Incoming Referrals [phone] Zurdo Daniel MD [address] [place] [address] Other instability, right hip; Pain in right hip Social History Tobacco [...] 11:30 AM EDT Office [place] [address] Charline Ziegler MD [facility] [place] [address] Scheduled Referrals Name Type Priority Associated Diagnoses Order Schedule Referral to Orthopaedics Outpatient Referral Routine Other instability, right hip Pain in right hip Ordered: 06/12/2022 documented as of this encounter Visit Diagnoses Diagnosis Other instability, right hip Pain in right hip Pain in joint, pelvic region and thigh documented in this encounter Care Teams Group Work Program Director Relationship Specialty Start Date End Date Reji Adams MD [facility] [place] [address] PCP - General General Internal Medicine 07/13/15 documented as of this encounter
--- OUTSIDE RECORDS SUMMARY | 2024-07-09 11:08 | XMS_ITS | Encounter Summary ---
Author Organization [facility] Address [facility] [place] [address] Care Team Providers Care School Year Nanny Name Role Phone Reji Adams MD Primary Care Provider [phone] Encounter Details Date Type Department Care Team (Latest Contact Info) Description 05/22/2022 12:41 PM EDT - 05/22/2022 6:44 PM EDT Hospital Encounter [place] [address] Tomas Falcon MD [facility] [place] [address] Discharge Disposition: Home Social History Tobacco Use [...] have money to get more. Patient declined 12/ Housing Stability Vital Sign Answer Danny e [...] Sign Reading Time Taken Comments Blood Pressure 109/95 05/22/2022 6:00 PM EDT Pulse 64 05/22/2022 6:00 PM EDT Temperature 36.1 ??C (97 ??F) 05/22/2022 5:22 PM EDT Respiratory Rate 14 05/22/2022 6:00 PM EDT Oxygen Saturation 98% 05/22/2022 6:00 PM EDT Inhaled Oxygen Concentration - - [...] EDT Office [place] [address] Charline Ziegler MD [facility] [place] [address] documented as of this encounter Procedures Procedure Name Priority Date/Time Associated Diagnosis Comments VERTEBROPLASTY 05/22/2022 2:26 PM EDT Bilateral sacral insufficiency fractures and L5 Vertebral compression fracture HC PROTHROMBIN TIME Routine 05/22/2022 1 :30 PM EDT documented in this encounter Results * Prothrombin Time (05/22/2022 1:30 PM EDT) Prothrombin Time 12.0 9.4 - 12.5 sec [facility] International Normalization Ratio 1.0 [facility] Comment: An INR <2.0 indicates adequate [...] Lab Tressa Ivory APRN HEMATOLOGY ORDERA BLES [facility] [place] [address] documented in this encounter Visit Diagnoses Not [...] CRNA) documented in this encounter Care Teams School Year Nanny Relationship Specialty Start Date End Date Reji Adams MD [facility] GENERAL [place] [address] PCP - General General Internal Medicine 07/13/15 documented as of this encounter
--- OUTSIDE RECORDS SUMMARY | 2024-07-09 11:08 | XMS_ITS | Encounter Summary ---
Author Organization [facility] [place] [address] Care Team Providers Care Dielectric Tester Name Role Phone Reji Adams MD Primary Care Provider [phone] Reason for Referral * Diagnostic Test (Routine) - Closed Specialty Diagnoses / Procedures Referred By Contac t Referred To Contact Radiology Diagnoses Thoracic back pain, unspecified back pain laterality, unspecified chronicity Procedures MRI Additional Views - Neuro Suad Andrea PA [address] [place] [address] [facility] Rad Mri [address] [place] [address] Referral ID Status Reason Start Date Expiration Date V isits Requested Visits Authorized [id number] Closed Specialty Service Requested 04/16/2022 10/15/2023 1 1 Reason for Visit * Diagnostic Test (Routine) - Closed Specialty Diagnoses / Procedures Referred By Contac t Referred To Contact Radiology Diagnoses Thoracic back pain, unspecified back pain laterality, unspecified chronicity Procedures MRI Additional Views - Neuro Suad Andrea PA [address] [place] [address] [facility] Rad Mri [address] [place] [address] Referral ID Status Reason Start Date Expiration Date V isits Requested Visits Authorized [id number] Closed Specialty Service Requested 04/16/2022 10/15/2023 1 1 Encounter Details Date Type Department Care Team (Latest Contact Info) Description 04/23/2022 9:44 AM EDT - 04/23/2022 11:59 PM EDT Hospital Encounter Radiology [facility] [place] [address] Suad Andrea PA Thoracic back pain, unspecified back pain laterality, [...] mg by mouth as needed. 02/11/2022 11/08/2022 gabapentin (Neurontin) 100 mg Capsule Take 100 mg by mouth. 02/26/20222021 leuprolide, 3 month, (Eligard) Syringe Inject 1 mg subcutaneously. 08/06/2021 11/08/2022 abiraterone (Zytiga) 250 mg Tablet Take 1,000 mg by mouth daily. 01/03/2022 11/26/2022 multivitamin Capsule Take 2 capsules by mouth Daily. 05/21/2022 predniSONE (Deltasone) 5 mg Tablet Take 5 [...] 11:30 AM EDT Office [place] [address] Charline Ziegler MD [facility] [place] [address] documented as of this encounter Procedures Procedure Name Priority Date/Time Associated Diagnosis Comments MRI ADDITIONAL VIEW - NEURO Routine 04/23/2022 10:28 AM EDT Thoracic back pain, unspecified back pain laterality, unspecified chronicity documented in this encounter Results * MRI Additional Views - Neuro (04/23/2022 10:28 AM EDT) Anatomical Region Laterality Modality Head, C-spine, L-spine, Neck , Spine, T-spine, Neuro Plexus Magnetic Resonance Impressions 04/23/2022 10:38 AM EDT No evidence of acute/unhealed compression fracture. Thank you for letting us participate in the care of this patient. ??If you are a health care provider and have any questions regarding this report, please contact the number below. ??For patients who have questions please contact the health rn patient care that requested your imaging first. ? Narrative 04/23/2022 10:38 AM EDT EXAMINATION: MRI ADDITIONAL VIEW - NEURO CLINICAL HISTORY: ADDITIONAL VIEWS - SAGITAL STIR TECHNIQUE: Noncontrast sagittal STIR images of the thoracic spine to supplement MRI of the thoracic spine April 09, 2022 COMPARISON: MRI thoracic spine April 09, 2022 FINDINGS: Stable mild upper and lower endplate irregularities consistent with Schmorl nodes at mid to lower thoracic levels, with accompanying anterior wedging. No marrow edema to suggest unhealed fracture. Disc bulge at T11/12 mildly narrowing the spinal canal. Trace anterolisthesis of T1 on T2. No severe spinal canal stenosis. Spinal cord shows normal signal. Procedure Note Alfreda Perez MD - 04/23/2022 EXAMINATION: MRI ADDITIONAL VIEW - NEURO CLINICAL HISTORY: ADDITIONAL VIEWS - SAGITAL STIR TECHNIQUE: Noncontrast sagittal STIR images of the thoracic spine to supplement MRIof the thoracic spine April 09, 2022 COMPARISON: MRI thoracic spine April 09, 2022 FINDINGS: Stable mild upper and lower endplate irregularities consistent withSchmorl nodes at mid to lower thoracic levels, with accompanying anterior wedging.No marrow edema to suggest unhealed fracture. Disc bulge at T11/12 mildlynarrowing the spinal canal. Trace anterolisthesis of T1 on T2. No severe spinalcanal stenosis. Spinal cord shows normal signal. IMPRESSION No evidence of acute/unhealed compression fracture. Thank you for letting us participate in the care of this patient. If youare a health care provider and have any questions regarding this report,please contact the number below. For patients who have questions please contactthe health rn patient care that requested your imaging first. Suad GUTIERREZ IMJaylon MRI ORDERABLES documented in this encounter Visit Diagnoses Diagnosis Thoracic back pain, unspecified back pain laterality, unspecified chronicity documented in this encounter Care Teams Dielectric Tester Relationship Specialty Start Date End Date Reji Adams MD [facility] GENER[place] [address] PCP - General General Internal Medicine 07/13/15 documented as of this encounter
--- OUTSIDE RECORDS SUMMARY | 2024-07-09 11:08 | XMS_ITS | Encounter Summary ---
Author Organization [facility] [place] [address] Care Team Providers Care Multifocal Lens Assembler Name Role Phone Reji Adams MD Primary Care Provider [phone] Encounter Details Date Type Department Care Team (Late st Contact Info) Description 04/30/2022 Orders Only Surgical Specialties at [facility] [address] [place] [address] Frantz English, DPHouston [address] [facility] [place] [address] Left foot pain; Bunion, left foot Social History Tobacco Use Types Packs/Day Years [...] 11:30 AM EDT Office [place] [address] [facility] [place] [address] documented as of this encounter Visit Diagnoses Diagnosis Left foot pain Pain in limb Bunion, left foot Bunion documented in this encounter Care Teams Multifocal Lens Assembler Relationship Specialty Start Date End Date Reji Adams MD [facility] GENERAL [place] [address] PCP - General General Internal Medicine 07/13/15 documented as of this encounter
--- OUTSIDE RECORDS SUMMARY | 2024-07-09 11:08 | XMS_ITS | Encounter Summary ---
Author Organization [facility] Address [facility] [place] [address] Care Team Providers Care Riding Coach Name Role Phone Reji Adams MD Primary Care Provider [phone] Encounter Details Date Type Department Care Team (Late st Contact Info) Description 04/30/2022 Telephone [place] [phone] Loreta Stevens Social History Tobacco Use Types [...] * Telephone Encounter - Loreta Stevens - 04/30/2022 8:47 AM EDT Pt called requesting to push out appt. documented in this encounter Plan of Treatment Upcoming Encounters Date Type Department Care Team (Late st Contact Info) Description 12/15/2024 11:30 AM EDT Office Visit [place] [address] Charline Ziegler MD [facility] [place] [address] documented as of this encounter Visit Diagnoses Not on filedocumented in this encounter Care Teams Riding Coach Relationship Specialty Start Date End Date Reji Adams MD [facility] [place] [address] PCP - General General Internal Medicine 07/13/15 documented as of this encounter
--- OUTSIDE RECORDS SUMMARY | 2024-07-09 11:08 | XMS_ITS | Encounter Summary ---
Author Organization [place] [address] Care Team Providers Care Molder Trimmer Name Role Phone Reji Adams MD Primary Care Provider [phone] Encounter Details Date Type Department Care Team (Latest Contact Info) Description 05/30/2022 Travel Social History Tobacco Use Types Packs/Day [...] 11:30 AM EDT Office Visit [place] [address] Charline Ziegler MD [facility] [place] [address] documented as of this encounter Visit Diagnoses Not on filedocumented in this encounter Care Teams Molder Trimmer Relationship Specialty Start Date End Date Reji Adams MD [facility] GENER[facility] [place] [address] PCP - General General Internal Medicine 07/13/15 documented as of this encounter
--- OUTSIDE RECORDS SUMMARY | 2024-07-09 11:08 | XMS_ITS | Encounter Summary ---
Author Organization Formerly [facility] [place] [address] Care Team Providers Care Lung Splitter Name Role Phone Reji Adams MD Primary Care Provider [phone] Encounter Details Date Type Department Care Team (Late st Contact Info) Description 07/11/2022 Telephone [place] [phone] Carlita Moe Ph, RN Social History Tobacco Use Types Packs/Day [...] encounter Miscellaneous Notes * Telephone Encounter - Carlita Moe Ph RN - 07/11/2022 4:37 PM EST ED GERIATRIC POST VISIT FOLLOW-UP PHONE CALL ??? Pt identification confirmed with name and . o YES The following responses were shared by the patient / family member: ??? Any questions regarding discharge instructions? o NO ??? Do you have everything needed at home to take care of yourself? o YES ??? Are you experiencing any persistent symptoms? o YES: Patient states he is still waiting to have a bowel movement. ??? If you had pain related to ED visit is it under control? o YES ??? If you were prescribed new medication have you been able to get it and are you taking it as ordered/prescribed? o YES: Patient states he is taking OTC Metamucil and colace. Reinforced that patient can take Miralax, colace, and senna if needed per his AVS. Patient receptive. ??? Are follow up appointments arranged? o YES: Patient states he has an appointment with gastroenterology on 08/05/22 ??? Follow up actions? o I reviewed all RETURN TO ED PRECAUTIONS as recommended in the After Visit Summary (AVS). Pt expressed understanding of these precautions and understood that he/she should return to the ED with any concerns as indicated. documented in this encounter Plan of Treatment Upcoming Encounters Date Type Department Care Team (Late st Contact Info) Description 12/15/2024 11:30 AM EDT Office Visit [place] [address] Charline Ziegler MD [facility] [place] [address] documented as of this encounter Visit Diagnoses Not on filedocumented in this encounter Care Teams Lung Splitter Relationship Specialty Start Date End Date Reji Adams MD [facility] [place] [address] PCP - General General Internal Medicine 07/13/15 documented as of this encounter
--- OUTSIDE RECORDS SUMMARY | 2024-07-09 11:08 | XMS_ITS | Encounter Summary ---
Author Organization Formerly [facility] Address [facility] [place] [address] Care Team Providers Care Resource Specialist Name Role Phone Reji Adams MD Primary Care Provider [phone] Encounter Details Date Type Department Care Team (Latest Contact Info) Description 07/01/2022 2:33 PM EST - 07/01/2022 11:59 PM [facility] Encounter XRay at [address] [place] [address] [facility] [place] [address] Right lower quadrant pain Discharge Disposition: Home Social History Tobacco Use [...] MALCOLM EXTRACT ORAL Take by mouth. 11/09/19 23 aspirin 81 mg Tablet, Delayed Release (E.C.) Take 81 mg by mouth daily. 03/17/2023 documented as of this encounter Plan of Treatment Upcoming Encounters Date Type Department Care Team (Late st Contact Info) Description 12/15/2024 11:30 AM EDT Office Visit Gastroenterology at [facility] [place] [address] [facility] [place] [address] documented as of this encounter Procedures Procedure Name Priority Date/Time Associated Diagnosis Comments XR ABDOMEN FLAT AND UPRIGHT STAT 07/01/2022 2:51 PM EST Right lower quadrant pain documented in this encounter Results * XR Abdomen Flat & Upright (07/01/2022 [...] questions please contact the health critical care unit nurse that requested your imaging first. ? Narrative 07/01/2022 2:56 PM EST EXAMINATION: XR [...] have questions please contactthe health critical care unit nurse that requested your imaging first. Electronically signed by: Maria Victoria Villafana MD, [facility]([phone]), at 07/01/2022 2:56 PM Geraldo Tenorio MD IMG DX ORDERABLES documented in this encounter Visit Diagnoses Diagnosis Right lower quadrant pain Abdominal pain, right lower quadrant documented in this encounter Care Teams Resource Specialist Relationship Specialty Start Date End Date Reji Adams MD [facility] [place] [address] PCP - General General Internal Medicine 07/13/15 documented as of this encounter
--- OUTSIDE RECORDS SUMMARY | 2024-07-09 11:09 | XMS_ITS | Encounter Summary ---
Author Organization [facility] [place] [address] Care Team Providers Care Forest And Conservation Worker Name Role Phone Reji Adams MD Primary Care Provider [phone] Encounter Details Date Type Department Care Team (Late st Contact Info) Description 08/20/2021 Telephone [place] [phone] Amaris Wise, RN Social History Tobacco Use Types Packs/Day [...] Miscellaneous Notes * Telephone Encounter - Amaris Wise RN - 08/20/2021 9:04 AM EST Patient called reporting sudden decrease in hearing. He states that later yesterday afternoon he notes a drastic decrease in his hearing in the left ear. He had no pain or drainage from that ear. He states that this morning it seems somewhat better, but there is a constant high pitched whining sound in that ear. Patient states that he started some cancer medications in the last couple weeks and he also had a cortisone injection in his elbow last week. He read that both of these things have the potential to affect hearing. Will have the patient come in for a hearing test and follow-up in clinic to evaluate the hearing loss more completely. I have asked our scheduling ward secretary to schedule this. documented in this encounter Plan of Treatment Upcoming Encounters Date Type Department Care Team (Late st Contact Info) Description 12/15/2024 11:30 AM EDT Office [place] [address] Charline Ziegler MD [facility] [place] [address] documented as of this encounter Visit Diagnoses Not on filedocumented in this encounter Care Teams Forest And Conservation Worker Relationship Specialty Start Date End Date Reji Adams MD [facility] [place] [address] PCP - General General Internal Medicine 07/13/15 documented as of this encounter
--- OUTSIDE RECORDS SUMMARY | 2024-07-09 11:09 | XMS_ITS | Encounter Summary ---
Author Organization [facility] [place] [address] Care Team Providers Care Guest Services Assistant Name Role Phone Reji Adams MD Primary Care Provider Encounter Details Date Type Department Care Team (Late st Contact Info) Description 08/15/2021 Telephone Internal Medicine at [address] [address] Amrita Webster, RN Social History Tobacco Use Types Packs/Day [...] 11:30 AM EDT Office [place] [address] Charline Ziegler MD [facility] [place] [address] documented as of this encounter Visit Diagnoses Not on filedocumented in this encounter Care Teams Guest Services Assistant Relationship Specialty Start Date End Date Reji Adams MD [facility] [place] [address] PCP - General General Internal Medicine 07/13/15 documented as of this encounter
--- OUTSIDE RECORDS SUMMARY | 2024-07-09 11:09 | XMS_ITS | Encounter Summary ---
Author Organization [facility] [place] [address] Care Team Providers Care Blow Molder Name Role Phone Reji Adams MD Primary Care Provider Encounter Details Date Type Department Care Team (Late st Contact Info) Description 07/04/2021 Orders Only [place] [phone] Ken Hidalgo MD [facility] DIAGNOSTIC [place] [address] Social History Tobacco Use Types Packs/Day Years Used Date Smoking Tobacco: Never Smokeless Tobacco: Current Chew Comments:3 cans/ week. Alcohol Use Standard Drinks/Week Comments Yes 0 (1 standard drink = 0.6 oz pur e alcohol) 1 drink per month Sex and Gender Information Value Date Recorded Sex Assigned at Choose not to disclose 02/2023 8:26 AM EDT Gender Identity Not on file Sexual Orientation Choose not to disclose 2022 8:26 AM EDT documented as of this encounter Plan of Treatment Upcoming Encounters Date Type Department Care Team (Late st Contact Info) Description 12/15/2024 11:30 AM EDT Office Visit [place] [address] Charline Ziegler MD [facility] DR GASTROENTEROLOGY [place], [place] [id number] documented as of this encounter Visit Diagnoses Not on filedocumented in this encounter Care Teams Blow Molder Relationship Specialty Start Date End Date Reji Adams MD [facility] GENERAL [place] [address] PCP - General General Internal Medicine 07/13/15 documented as of this encounter
--- OUTSIDE RECORDS SUMMARY | 2024-07-09 11:09 | XMS_ITS | Encounter Summary ---
Author Organization [facility] [place] [address] Care Team Providers Care Servicer Travel Trailers Name Role Phone Reji Adams MD Primary Care Provider [phone] Reason for Referral * Consultation (Urgent) - Closed Specialty Diagnoses / Procedures Referred By Baileyac t Referred To Contact Orthopaedics Diagnoses Sacral insufficiency fracture, initial encounter Bright Casanova MD [address] [place] [address] [facility] [address] [place] [id number] Referral ID Status Reason Start Date Expiration Date V isits Requested Visits Authorized [id number] Closed Consult, Test & Treat PCP Updated and/or Approved 04/16/2022 04/16/2023 6 6 Encounter Details Date Type Department Care Team (Latest Contact Info) Description 04/16/2022 Transcribe Orders eDH Incoming Referrals [phone] Bright Casanova MD Sacral insufficiency fracture, initial encounter Social History Tobacco Use Types [...] 11:30 AM EDT Office [place] [address] Charline Ziegler MD [facility] [place] [address] Scheduled Referrals Name Type Priority Associated Diagnoses Orde r Schedule Referral to Orthopaedics Outpatient Referral Routine Sacral insufficiency fracture, initial encounter Ordered: 04/16/2022 documented as of this encounter Visit Diagnoses Diagnosis Sacral insufficiency fracture, initial encounter documented in this encounter Care Teams Servicer Travel Trailers Relationship Specialty Start Date End Date Reji Adams MD [facility] [place] [address] PCP - General General Internal Medicine 07/13/15 documented as of this encounter
--- OUTSIDE RECORDS SUMMARY | 2024-07-09 11:09 | XMS_ITS | Encounter Summary ---
Author Organization Formerly [facility] Address [facility] [place] [address] Care Team Providers Care Sub Arc Operator Name Role Phone Reji Adams MD Primary Care Provider [phone] Reason for Visit * Reason Onset Date Comments Medication Refill 03/16/2022 Encounter Details Date Type Department Care Team (Late st Contact Info) Description 03/16/2022 Refill Internal Medicine at [address] [address] Reji Adams MD [facility] GENERAL [place] [address] Anxiety Social History Tobacco Use Types Packs/Day [...] AM EDT Office Visit [place] [address] Charline Ziegler MD [facility] [place] [address] documented as of this encounter Visit Diagnoses Diagnosis Anxiety Anxiety state, unspecified documented in this encounter Care Teams Sub Arc Operator Relationship Specialty Start Date End Date Reji Adams MD [facility] GENERAL [place] [address] PCP - General General Internal Medicine 07/13/15 documented as of this encounter
--- OUTSIDE RECORDS SUMMARY | 2024-07-09 11:09 | XMS_ITS | Encounter Summary ---
Author Organization [facility] Address [facility] [place] [address] Care Team Providers Care Pneumatic Tester Mechanic Name Role Phone Reji Adams MD Primary Care Provider [phone] Encounter Details Date Type Department Care Team (Late st Contact Info) Description 04/11/2022 Orders Only Internal Medicine at [facility] [address] [place] [address] Reji Adams MD [facility] GENER[place] [address] Social History Tobacco Use Types Packs/Day Years [...] 11:30 AM EDT Office [place] [address] Charline Ziegler MD [facility] [place] [address] documented as of this encounter Visit Diagnoses Not on filedocumented in this encounter Care Teams Pneumatic Tester Mechanic Relationship Specialty Start Date End Date Reji Adams MD [facility] [place] [address] PCP - General General Internal Medicine 07/13/15 documented as of this encounter
--- OUTSIDE RECORDS SUMMARY | 2024-07-09 11:09 | XMS_ITS | Encounter Summary ---
Author Organization [facility] Address [facility] [place] [address] Care Team Providers Care Lining Stuffer Name Role Phone Reji Adams MD Primary Care Provider Encounter Details Date Type Department Care Team (Late st Contact Info) Description 04/22/2022 Orders [place] [address] Yuliana Carroll PA [facility] [place] [address] Sacral insufficiency fracture with routine healing, subsequent encounter Social History Tobacco Use Types Packs/Day [...] 11:30 AM EDT Office [place] [address] Charline Ziegler MD [facility] [place] [address] documented as of this encounter Visit Diagnoses Diagnosis Sacral insufficiency fracture with routine healing, subsequent encounter documented in this encounter Care Teams Lining Stuffer Relationship Specialty Start Date End Date Reji Adams MD [facility] GENER[place] [address] PCP - General General Internal Medicine 07/13/15 documented as of this encounter
--- OUTSIDE RECORDS SUMMARY | 2024-07-09 11:09 | XMS_ITS | Encounter Summary ---
Author Organization [facility] [place] [address] Care Team Providers Care Clinical Implementation Specialist Name Role Phone Reji Adams MD Primary Care Provider [phone] Encounter Details Date Type Department Care Team (Late st Contact Info) Description 08/07/2021 Telephone [place] [phone] Alfreda Tubbs Social History Tobacco Use Types Packs/Day Years [...] 11:30 AM EDT Office [place] [address] Charline Ziegler MD [facility] [place] [address] documented as of this encounter Visit Diagnoses Not on filedocumented in this encounter Care Teams Clinical Implementation Specialist Relationship Specialty Start Date End Date Reji Adams MD [facility] GENERAL [place] [address] PCP - General General Internal Medicine 07/13/15 documented as of this encounter
--- OUTSIDE RECORDS SUMMARY | 2024-07-09 11:09 | XMS_ITS | Encounter Summary ---
Author Organization [facility] Address [facility] [place] [address] Care Team Providers Care Guide Travel Name Role Phone Reji Adams MD Primary Care Provider [phone] Reason for Visit * Reason Onset Date Comments Triage 02/25/2022 Encounter Details Date Type Department Care Team (Late st Contact Info) Description 02/25/2022 Telephone Internal Medicine at [address] [address] Reji Adams MD [facility] [place] [address] Triage Social History Tobacco Use Types Packs/Day [...] encounter Miscellaneous Notes * Telephone Encounter - Flory October - 02/25/2022 4:44 PM EDT Message: Patient states that he has been having fatigue, body aches , stuffy nose for a week . Patient states he took a covid test on Friday and Friday and they were negative Ask caller their first and last name and relationship to the patient: self Best time to call back: any Ok to leave a message: y Ok to send [facility] message: n Offered Appointment: n MA/Nurse/[place] contacted via: Message: y Call: n Pager: n documented in this encounter Plan of Treatment Upcoming Encounters Date Type Department Care Team (Late st Contact Info) Description 12/15/2024 11:30 AM EDT Office [place] [address] Charline Ziegler MD [facility] [place] [address] documented as of this encounter Visit Diagnoses Not on filedocumented in this encounter Care Teams Guide Travel Relationship Specialty Start Date End Date Reji Adams MD [facility] [place] [address] PCP - General General Internal Medicine 07/13/15 documented as of this encounter
--- OUTSIDE RECORDS SUMMARY | 2024-07-09 11:09 | XMS_ITS | Encounter Summary ---
Author Organization Replaced By [facility] [place] [address] Care Team Providers Care Lepidopterist Name Role Phone Reji Adams MD Primary Care Provider [phone] Encounter Details Date Type Department Care Team (Late st Contact Info) Description 01/30/2022 1:00 PM EDT Office [place] [address] Rigo Landry III, MD [address] [facility] [place] [address] Venous insufficiency of both lower extremities; Varicose veins of both lower extremities with pain Social History Tobacco Use Types Packs/Day [...] Sign Reading Time Taken Comments Blood Pressure 107/59 01/30/2022 1:23 PM EDT Pulse 68 01/30/2022 1:23 PM EDT Temperature - - Respiratory Rate 16 01/30/2022 1:23 PM EDT Oxygen Saturation - - Inhaled Oxygen Concentration - - Weight 86.6 kg (191 lb) 01/30/2022 1:23 PM EDT Height 179.1 cm (5' 10.5) 01/30/2022 1:23 PM ED T Body Mass Index 27.02 01/30/2022 1:23 PM EDT documented in this encounter Progress Notes * Rigo Landry III, MD - 01/30/2022 1:00 PM EDT OUTPATIENT VASCULAR SURGERY CONSULTATION Reason for Visit: Symptomatic bilateral/right more than left lower extremity varicose veins, venousinsufficiency, history of bilateral great saphenous vein stripping and varicose vein excision April 2012. History of Present Illness: Ken Mckeon is a 76 y.o. Male seen in consultation at the request of Dr. Reji Adams regarding progressively symptomatic, right lower extremity varicose veins. He previously had extensive venous surgery consisting of bilateral great saphenous vein open stripping and varicose vein excision with my colleague, Dr. Broussard in 2011. There were some posterior varicose veins at that time, and he recalls discussing whether to proceed with a second operation to eradicate them, but as they were only mildly symptomatic at that time he has elected observation. In the intervening years, these have enlarged and become quite symptomatic in the right leg. He does note that he had his first varicose vein surgery while still in high school. He describes pain in the right posterior thigh varicosities in particular, these hurt with direct pressure and with sitting. He has heaviness of the posterior thigh and calf related to his varicosities with any significant length of standing. He has restless leg syndrome that affects the right leg much more than the left and occurs every night. He has had minimal swelling. He denies history of DVT or phlebitis. He uses 20-30 mmHg knee-high compression stockings throughout the winter, and diabetic support socks in the summer, has done so for many years. In the left leg, he describes heaviness but otherwise the varicosities there are asymptomatic. With ambulation, he has bilateral knee pain but not claudication. He denies significant lower extremity trauma or fracture. He has had bilateral total hip replacements, reports he needs a left total knee replacement and has upcoming consultationwith Dr. Mehta at [facility] in that regard, to review his options. He reports he has had multiple bilateral knee surgeries previously as well. He has had his orthopedic surgery with Dr. Daniel in [place], he tells me. He reports a long-term history of bundle branch block. Nuclear stress test 2016 showed no ischemia,EF 71%. He describes some shortness of breath with exertion. He is on aspirin and statin therapy. He quit chewing tobacco 11 days ago but has not smoked cigarettes. He has prostate cancer with radical prostatectomy in 2019, he had recurrence. He is on hormonal therapy, as I understand it; he did have radiation therapy, most recently September 2021. He reports his PSA is now undetectable. He denies any abdominal pain. Patient Active Problem List Diagnosis Code ??? 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 Cataract extraction status of left eye Z98.42 ??? OA (osteoarthritis) of knee M17.10 ??? Anxiety F41.9 ??? Neck pain M54.2 [...] of both lower extremities with pain I83.813 Current Outpatient Medications: ??? ALPRAZolam (Xanax) 0.25 mg Tablet, Take 1 tablet by mouth 3 times daily as needed for Anxiety.,Disp: 90 tablet, Rfl: 0 ??? leuprolide, 3 month, (Jesus, 3 month,) Syringe, Inject 22.5 mg subcutaneously once., Disp: , Rfl: ??? pravastatin (Pravachol) 20 mg Tablet, Take 1 tablet by mouth daily., Disp: 90 tablet, Rfl: 3 ??? tadalafiL (CIALIS) 5 mg Tablet, Take 5 mg by mouth as needed for Erectile Dysfunction., Disp: ,Rfl: ??? MALCOLM EXTRACT ORAL, Take by mouth., Disp: , Rfl: ??? acetaminophen (TYLENOL ARTHRITIS PAIN) 650 mg Tablet Sustained Release, Take 650 mg by mouth every 8 hours as needed for Pain. Do not exceed 6 tabs in 24 hours, Disp: , Rfl: ??? aspirin 81 mg Tablet, Delayed Release (E.C.), Take 81 mg by mouth daily., Disp: , Rfl: ??? multivitamin (THERAGRAN) tablet, Take 1 tablet by mouth daily., Disp: , Rfl: Allergies Allergen Reactions ??? Penicillins Anaphylaxis Tongue swelling ??? Betamethasone hiccups after injection ??? Dexamethasone Hiccups after injection Review of Systems: Constitutional (weight change, fever) - Denies Neuro (dizziness, seizures, numbness, tingling) - Denies Eyes (vision) - Denies Ears, nose, throat (hearing) - Denies Cardiovascular (CP) - Denies Respiratory (SOB) - Denies GI (abd pain, nausea, emesis, blood in stool) - Denies (hematuria, dysuria, frequency) - Denies Muscoloskeletal (extremity pain, weakness) - see HPI Skin (ulcers, rashes) - see HPI Functional Status/Social Hx: He has not smoked cigarettes, but chewed tobacco since 1970 and quit 11 days ago. Social history is reviewed. Family Hx: His brother at a young age. It sounds like his father had peripheral arterial disease. Denies family history of DVT. Physical Exam: Vitals Flowsheet Row Office Visit from 08/20/2021 in Otolaryngology at [facility] [place] Weight 84.4 kg (186 lb) Height 179.1 cm (5' 10.5) BSA (Calculated - sq m) 2.05 sq meters BMI (Calculated) 26.31 General - NAD, seen alone. Neuro - Alert and Oriented, Motor Sensory grossly intact Skin -see lower extremity examination below. No carotid bruits. Cardiac - RRR, no murmurs Lungs - Clear, equal Abd - Soft, NT, ND, No palpable pulsatile masses Extremities - Right lower extremity: There are large varicose veins beginning at the posterior proximal thigh, coursing to the medial mid to distal thigh, there are also some varicosities of the posterior lateral thigh. There are substantial varicose veins of the posterior popliteal region to mid lower leg. Many of the varicosities pos teriorly are at least 8--10 mm diameter. There are some more modest varicosities of his anterior mid to distal lower leg, perhaps 4-5 mm diameter. I find no stasis dermatitis, minimal edema. Pedal pulses are readily palpable. Left lower extremity: There are a few isolated varicosities in the proximal posterior thigh, there are varicose veins of the medial mid to distal thigh, into the lower leg. These are perhaps 6-7 mm diameter. I find no stasis dermatitis or significant edema. Pedal pulses are readily palpable. Vascular Exam: R L Carotid 2/2 bruit (-) 2/2 bruit (-) Radial 2/2 2/2 Femoral 2/2 2/2 Popliteal DP 2/2 2/2 PT 2/2 2/2 Labs: May 2021: BUN 11, creatinine 1.97, hemoglobin 15, platelets 198. Studies: Carotid duplex 2012: RIGHT: There is minimal smooth plaque in the proximal internal carotid artery causing no stenosis when compared to the more distal internal carotid artery. The bifurcation level is in the mid neck. LEFT: There is minimal smooth plaque in the proximal internal carotid artery causing no stenosis when compared to the more distal internal carotid artery. The bifurcation level is in the mid neck. Vertebral Artery Data: Antegrade blood flow with normal Doppler waveforms and velocities bilaterally. Bilateral lower extremity venous duplex 2012: Findings: Right ? Reflux?Diameter AP (mm) ??Depth (mm) Common Femoral Vein ? Reflux Femoral Vein Thigh ?Reflux Popliteal ? Reflux Posterior Tibial Vein ? Competent Great Saphenous Vein, Near SFJ ?Reflux ?4.4 ? 19.6 Great Saphenous, Upper Thigh ?Reflux ?3.1 ? 17.4 Great Saphenous Vein, Mid Thigh ?? Reflux ?4.3 ? 17.8 Great Saphenous Vein, ??Knee ? Reflux ?3.5 ?6.4 Great Saphenous Vein, Below Knee ??Reflux ?4.5 ?6.8 Short Saphenous, Below Knee ? Competent Left ?Reflux?Diameter AP (mm) ??Depth (mm) Common Femoral Vein ? Competent Femoral Vein Thigh ?Competent Popliteal ? Reflux Posterior Tibial Vein ? Competent Great Saphenous Vein, Near SFJ ?Reflux ?4.4 ? 18.1 Great Saphenous, Upper Thigh ?Reflux ?4.5 ?9.2 Great Saphenous Vein, Mid Thigh ?? Reflux ?3.8 ? 24.3 Great Saphenous Vein, ??Knee ? Reflux ?5.9 ?8.1 Great Saphenous Vein, Below Knee ??Reflux ?5.7 ?7.9 Short Saphenous, Below Knee ? Competent Interpretation: RIGHT: Findings consistent with deep and superficial venous valvular incompetence. No evidence of deep (fem-pop) or superficial vein thrombus. LEFT: Findings consistent with deep and superficial venous valvular incompetence. No evidence of deep (fem-pop) or superficial vein thrombus. NOTE: There are many incompetent varicose veins throughout the entire length of both extremities. Ankle-brachial indices 2017: Findings: Segment Right Pressure (mm Hg) EMILEE Waveform Brachial Artery 110 Dorsalis Pedis (Ankle) Artery 134 1.22 Triphasic Posterior Tibial (Ankle) Artery 134 1.22 Triphasic Segment Left Pressure (mm Hg) EMILEE Waveform Brachial Artery 102 Dorsalis Pedis (Ankle) Artery 129 1.17 Triphasic Posterior Tibial (Ankle) Artery 131 1.19 Triphasic Interpretation: RIGHT: No significant lower extremity arterial occlusive disease identifiable at rest. Normal ankle/brachial pressure ratios and ankle Doppler waveforms. No identifiable change when compared to the previous exam performed on 06/10/2005. LEFT: No significant lower extremity arterial occlusive disease identifiable at rest. Normal ankle/brachial pressure ratios and ankle Doppler waveforms. No identifiable change when compared to the previous exam performed on 06/10/2005. Previous ABIs with change from previous value: Date RIGHT DP RIGHT PT RT GR TOE LEFT DP LEFT PT LT GR TOE 06/10/2005 1.26 1.37 ---- 1.24 1.28 ---- Current 1.22(-0.04)1.22(-0.15) ---- 1.17(-0.07)1.19(-0.09 )---- Right lower extremity venous duplex September 2020: Findings: Segment Right Reflux? Common Femoral Vein Reflux Femoral Vein Reflux Popliteal Reflux Interpretation: RIGHT: There is reflux in the common femoral vein, femoral vein in the thigh, and popliteal vein (reflux time 1.8- 2.8 seconds) consistent with deep venous valvular incompetence. No evidence of common femoral, femoral or popliteal DVT. No identifiable change when compared to the previous exam on 11/07/16. The great saphenous vein was previously stripped. The small saphenous vein was not visualized (possibly stripped per patient). There were no varicose veins or vascular abnormalities noted within the area of pain along the posterior thigh as indicated by the patient. Patent varicose vein with reflux(1.4 seconds) noted along the medial thigh. This varicosity appears to be a femoral vein tributary a t the level of the femoral vein bifurcation and is a new finding compared to the previous exam on 11/07/16. The previously visualized varicosity along the distal lateral thigh is not identified on thecurrent exam. CT scan of the chest and abdomen at [facility] [place] November 2020, my review of images: The great vessels are normal to the mid proximal common carotid arteries, including the subclavian arteries. There is a normal aortic arch. There is no arterial disease or aneurysm to the proximal external iliac level. There is no visceral vessel stenosis. There is an anterior left renal vein without compression. The IVC appears normal. There is some left common iliac venous compression, not severe. Assessment and Plan: Ken Mckeon presents with extensive, right more than left lower extremity varicose veins, particularly of the posterior thigh and calf. He underwent bilateral great saphenous vein open stripping and bilateral varicose vein excision in 2011, as well as prior varicose vein surgery at a young age. He does not have stasis dermatitis or ulceration. He has used compression stocking therapy, prescription 20-30 mmHg, for many years. Despite that, symptoms particularly in the rightposterior thigh have progressed and become a limitation on his quality of life and daily activities. On the left, he has some leg heaviness but no significant or severe varicose vein symptoms. Right lower extremity venous duplex demonstrates diffuse deep venous incompetence. The great saphenous vein is absent, consistent with prior stripping. The short saphenous vein is not visualized either. I discussed these findings with him at length. Given his diffuse deep venous incompetence, he will be at some long-term risk of stasis dermatitis and ulcer, and I do recommend long-term compression therapy. Regarding his symptomatic varicose veins, I offered him varicose vein excision. I would not perform sclerotherapy for varicosities of this size. There is no other venous procedure in the rightleg that is likely to improve symptoms. I discussed the risks of varicose vein excision, with whichhe is familiar already. I discussed bleeding, infection, wound healing problems, scarring, pain, nerve injury, varicose vein recurrence, and DVT. He will consider that, and will contact me if he wants to proceed with right leg varicose vein excision. I would perform this on an outpatient basis under general anesthesia, in the prone position. I discussed several sites where I perform these procedures. This is a low risk operation. Regarding potential knee surgery, I have no concerns from a vascular perspective. His varicose veins should not pose a problem technically for knee surgery. Carotid duplex in 2012 demonstrated minimal bilateral carotid atherosclerosis. Ankle-brachial indices were normal in 2017. He has palpable pedal pulses, no claudication symptoms currently. Thank you for the opportunity to participate in his care. Please contact me with any questions. documented in this encounter Plan of Treatment Upcoming Encounters Date Type Department Care Team (Late st Contact Info) Description 12/15/2024 11:30 AM EDT Office [place] [address] Charline Ziegler MD [facility] [place] [address] documented as of this encounter Visit Diagnoses Diagnosis Venous insufficiency of both lower extremities Varicose veins of both lower extremities with pain Varicose veins of lower extremities with other complications documented in this encounter Care Teams Lepidopterist Relationship Specialty Start Date End Date Reji Adams MD [facility] [place] [address] PCP - General General Internal Medicine 07/13/15 documented as of this encounter
--- OUTSIDE RECORDS SUMMARY | 2024-07-09 11:09 | XMS_ITS | Encounter Summary ---
Author Organization [facility] Address [facility] [place] [address] Care Team Providers Care Social Service Manager Name Role Phone Reji Adams MD Primary Care Provider [phone] Reason for Visit * Reason Comments Back Pain is worried about his kidney Dysuria Encounter Details Date Type Department Care Team (Late st Contact Info) Description 03/08/2021 11:00 AM EDT Office Visit Internal Medicine at [address] [address] Tomas Salgado MD [facility] [place] [address] Chronic bilateral thoracic back pain Social History Tobacco Use Types Packs/Day [...] Sign Reading Time Taken Comments Blood Pressure 103/67 03/08/2021 10:55 AM EDT Pulse 63 03/08/2021 10:55 AM EDT Temperature 36.7 ??C (98 ??F) 03/08/2021 10: 55 AM EDT Respiratory Rate - - Oxygen Saturation 99% 03/08/2021 10: 55 AM EDT Inhaled Oxygen Concentration - - Weight 85.2 kg (187 lb 12.8 oz) 03/08/2021 10:55 AM EDT with shoes on Height 182.6 cm (5' 11.89) 03/08/2021 10:55 AM EDT reported Body Mass Index 25.55 03/08/2021 10:55 AM EDT documented in this encounter Progress Notes * Tomas Salgado MD - 03/08/2021 11:00 AM EDT General Internal Medicine Ken Mckeon is a 75 y.o. male who presents for ongoing thoracic back pain. He reports this is similar to when I last assessed him for this issue in October of this year. Now, however he has episodic mid back pain, located on both sides of his middle back, that occurs randomlythroughout the day. Lasts a few minutes to an hour, a few times per day. The pain does not radiate.Usually it affects just one side at a time, but sometimes can be both at once. The only thing he can think of that sometimes worsens it is bending over. He tried the cyclobenzaprine but it makes him feel groggy. He is using acetaminophen PRN with some relief. Since our last visit for this, he had a lot of different imaging studies. Initially he had xrays ofthe ribs and thoracic spine, to rule out bony disease given his history of prostate cancer. Then hehad a CTA chest that found a right renal lesion. This was further evaluated by an MRI abdomen, where it was found to be benign. He also had a total spine MRI without any major issues, did show chronic lumbar and cervical disc disease and his previous vertebral fusions in those areas. His main concern today was to make sure he didn't have a urinary or kidney infection, because he also notes some change in his urinary stream. He continues to follow with radiation oncology about recurrent prostate cancer. He would like some more specialized scans prior to deciding upon a treatment. Objective: Medications 03/08/21 1053 Medication Sig Taking? ALPRAZolam (Xanax) 0.25 mg Tablet Take 1 tablet by mouth 3 times daily as needed for Anxiety. Yes pravastatin (Pravachol) 20 mg Tablet Take 1 tablet by mouth daily. Yes tadalafiL (CIALIS) 5 mg Tablet Take 5 mg by mouth as needed for Erectile Dysfunction. Yes MALCOLM EXTRACT ORAL Take by mouth. Yes acetaminophen (TYLENOL ARTHRITIS PAIN) 650 mg Tablet Sustained Release Take 650 mg by mouth every 8hours as needed for Pain. Do not exceed 6 tabs in 24 hours Yes aspirin 81 mg Tablet, Delayed Release (E.C.) Take 81 mg by mouth daily. Yes multivitamin (THERAGRAN) tablet Take 1 tablet by mouth daily. Yes Visit Vitals BP 103/67 (BP Location (NBP): Left arm, Patient Position: Sitting, BP Cuff Sizes: Adult (25-34 cm)) Pulse 63 Temp 36.7 ??C (98 ??F) (Oral) Ht 182.6 cm (5' 11.89) Comment: reported Wt 85.2 kg (187 lb 12.8 oz) Comment: with shoes on SpO2 99% BMI 25.55 kg/m?? BP Readings from Last 3 Encounters: 03/08/21 103/67 03/01/21 109/73 02/15/21 113/66 Wt Readings from Last 3 Encounters: 03/08/21 85.2 kg (187 lb 12.8 oz) 02/15/21 85.7 kg (189 lb) 01/18/21 84.6 kg (186 lb 6.4 oz) Physical Exam Constitutional: General: He is not in acute distress. Appearance: He is not ill-appearing. Musculoskeletal: Comments: Moving all extremities spontaneously Neurological: Mental Status: He is alert. Motor: No weakness. Gait: Gait normal. Comments: Follows simple commands without issue. No dysarthria Psychiatric: Mood and Affect: Mood normal. Behavior: Behavior normal. Thought Content: Thought content normal. Assessment and Plan: Mr. Mckeon was seen today for the following issues. Problem List Items Addressed This Visit Back pain Relevant Orders POCT urine dipstick (Completed) Urinalysis with reflex Culture (Completed) His dipstick UA was normal. Provided him reassurance that this is a decent rule out of UTI, pyelonephritis, prostatitis, and nephrolithiasis. His symptoms are not consistent with these conditions, either, which is reassuring. Also reassuring is the extensive back imaging he has had at this point without any major pathology identified that would cause this pain. He was in fact reassured by all of this, and doesn't feel the need for further management of the pain, which he is comfortable monitoring. Ok to use acetaminophen PRN. Also again offered PT, as a muscular etiology is most likely, but he declines this for now. Appreciate follow-up with his oncology and urology providers regarding prostate cancer. A mask was worn by myself for the entirety of the visit. A total of 30 minutes were spent in [id number] and non [id number] activities on the date of this encounter. documented in this encounter Plan of Treatment Upcoming Encounters Date Type Department Care Team (Late st Contact Info) Description 12/15/2024 11:30 AM EDT Office [place] [address] Charline Ziegler MD [facility] [place] [address] documented as of this encounter Procedures Procedure Name Priority Date/Time Associated Diagnosis Comments URINALYSIS WITH REFLEX CULTURE Routine 03/08/2021 12:03 PM EDT Chronic bilateral thoracic back pain POCT URINE DIPSTICK Routine 03/08/2021 1 1:00 AM EDT Chronic bilateral thoracic back pain documented in this encounter Results * Urinalysis with reflex Culture (03/08/2021 12:03 PM EDT) Glucose, Urine Dipstick Negative Negative mg/dL [facility] Protein, Urine Dipstick Negative Negative mg/dL [facility] Bilirubin, Urine Dipstick Negative Negative mg/dL [facility] Comment: Clinical correlation required for positive Urine Bilirubin results as false positive may occur with some drugs and drug related products. If a false positive is suspected a serum total bilirubin should be considered if clinically indicated. Urobilinogen, Urine Dipstick Normal Normal mg/dL [facility] pH, Urn (dipstick) 6.5 5.0 - 8.0 [facility] Blood, Urine Dipstick Negative Negative mg/dL [facility] Ketone, Urine Dipstick Negative Negative mg/dL [facility] Nitrite, Urine Dipstick Negative Negative [facility] Leukocytes, Urine Dipstick Negative Negative [facility] Appearance, Urine Dipstick Clear Clear [facility] Specific [place] Urine Automated 1.016 1.005 - 1.030 [facility] Color, Urine Dipstick Dark Yellow Yellow [facility] Reflex to Culture No [facility] Urine NS 03/08/2021 12:0 3 PM EDT 03/08/2021 7:00 PM EDT Narrative Resulting Agency Comment Spec In Lab Tomas Salgado MD URINE ORDERABLES Performing Organization Address City/State/[facility] Co de Phone Number [facility] [place] [phone] * POCT urine dipstick (03/08/2021 11:00 AM EDT) POC Sp [place] 1.015 1.002 - 1.030 POC pH, UA 6 5.0 - 8.5 POC Leuk, UA neg Negative - Negative POC Nitrite, UA neg Negative - Negative POC Protein, UA trace Negative - Negative mg/dL POC Glucose, UA norm Normal - Normal mg/dL POC Ketone, UA neg Negative - Negative POC Urobil, UA norm 0.2 - 1.0 mg/dL POC Bili, UA neg Negative - Negative POC Blood, UA neg Negative - Negative denise/uL 03/08/2021 11:0 0 AM EDT Tomas Salgado MD POINT OF CARE TEST O RDERABLES documented in this encounter Visit Diagnoses Diagnosis Chronic bilateral thoracic back pain documented in this encounter Care Teams Social Service Manager Relationship Specialty Start Date End Date Reji Adams MD [facility] [place] [address] PCP - General General Internal Medicine 07/13/15 documented as of this encounter
--- OUTSIDE RECORDS SUMMARY | 2024-07-09 11:09 | XMS_ITS | Encounter Summary ---
Author Organization [facility] Address [facility] [place] [address] Care Team Providers Care Logistics Vice President Name Role Phone Reji Adams MD Primary Care Provider [phone] Reason for Visit * Reason Onset Date Comments Medication Refill 08/19/2021 Encounter Details Date Type Department Care Team (Late st Contact Info) Description 08/19/2021 Refill Internal Medicine at [address] [address] Reji Adams MD [facility] GENERAL [place] [address] Social History Tobacco Use Types Packs/Day Years [...] 11:30 AM EDT Office [place] [address] Charline Ziegler MD [facility] [place] [address] documented as of this encounter Visit Diagnoses Not on filedocumented in this encounter Care Teams Logistics Vice President Relationship Specialty Start Date End Date Reji Adams MD [facility] GENERAL [place] [address] PCP - General General Internal Medicine 07/13/15 documented as of this encounter
--- OUTSIDE RECORDS SUMMARY | 2024-07-09 11:09 | XMS_ITS | Encounter Summary ---
Author Organization [facility] Address [facility] [place] [address] Care Team Providers Care Donor Recruitment Manager Name Role Phone Reji Adams MD Primary Care Provider [phone] Reason for Visit * Reason Onset Date Comments Other 08/08/2021 Encounter Details Date Type Department Care Team (Late st Contact Info) Description 08/08/2021 Telephone Internal Medicine at [address] [address] Reji Adams MD [facility] [place] [address] Other Social History Tobacco Use Types Packs/Day [...] encounter Miscellaneous Notes * Telephone Encounter - Luis Santoyo - 08/08/2021 4:16 PM EST Message: Please reach out to Shani if Reji Adams MD is not receiving notes on Ken's care at their facility. Ken will be receiving care at several offices for prostate cancer. Shani will be coordinating his care. She wants to make sure Dr. Adams is aware of these appointments and the care that Ken is receiving at these different offices. Thank you, Ask caller their first and last name and relationship to the patient: Shani Nurse Navigotor for Urologic [place] at [facility] Ext [phone] Best time to call back: business hours M-F 8-5 Ok to leave a message: Yes Ok to send [facility] message: n/a Offered Appointment: n/a MA/Nurse/Financial Management Analyst contacted via: Message: Yes Call: no Pager: no documented in this encounter Plan of Treatment Upcoming Encounters Date Type Department Care Team (Late st Contact Info) Description 12/15/2024 11:30 AM EDT Office [place] [address] Charline Ziegler MD [facility] [place] [address] documented as of this encounter Visit Diagnoses Not on filedocumented in this encounter Care Teams Donor Recruitment Manager Relationship Specialty Start Date End Date Reji Adams MD [facility] [place] [address] PCP - General General Internal Medicine 07/13/15 documented as of this encounter
--- OUTSIDE RECORDS SUMMARY | 2024-07-09 11:09 | XMS_ITS | Encounter Summary ---
Author Organization [facility] Address [facility] [place] [address] Care Team Providers Care Service Order Expediter Name Role Phone Reji Adams MD Primary Care Provider [phone] Reason for Visit * Reason Comments Advice Only * Consultation (Routine) - Closed Specialty Diagnoses / Procedures Referred By Duglas arizmendi Referred To Contact Hematology and Oncology Diagnoses Recurrent prostate cancer Self mail Mike Louise MD [facility] DR HEMATOLOGY [place] [address] Referral ID Status Reason Start Date Expiration Date Visits Re quested Visits Authorized [id number] Closed 07/06/2021 07/06/2022 1 1 Encounter Details Date Type Department Care Team (Late st Contact Info) Description 07/26/2021 1:00 PM EST Office Visit Hematology [place] [phone] Mike Louise MD [facility] DR HEMATOLOGY [place] [address] Prostate cancer metastatic to intrapelvic lymph node [...] Sign Reading Time Taken Comments Blood Pressure 137/82 07/26/2021 1:02 PM EST Pulse 69 07/26/2021 1:02 PM EST Temperature 36.3 ??C (97.3 ??F) 07/26/2021 1 :02 PM EST Respiratory Rate 18 07/26/2021 1:02 PM EST Oxygen Saturation 100% 07/26/2021 1:0 2 PM EST Inhaled Oxygen Concentration - - Weight 87.3 kg (192 lb 6.4 oz) 07/26/20 21 1:02 PM EST with shoes Height 181.7 cm (5' 11.54) 07/26/2021 1:02 PM EST with shoes Body Mass Index 26.43 07/26/2021 1:02 PM EST documented in this encounter Progress Notes * Mike Louise MD - 07/26/2021 1:00 PM EST Images from the original note were not included. Diagnosis:pT2, pN0, cM0, PSA: 7, Grade Group: 5, [place]: 4, +: 5) CC: I have back pain HPI:Ken Mckeon is 75 y.o.M Coming for second opinion on management of prostate cancer. He was initially diagnosed with prostate cancer in 2018. Ken underwent radical prostatectomy in April 2019. His PSA has been slowly rising and reached level of biochemical recurrence in April 2021. Hefollowed with radiation oncologist Dr. White. Went for second opinion to [facility]. Mr. Mckeon had a PSMA PET scan at [facility] 07/02/21 and evaluation in radiation oncology and medical oncology by Dr. Marin and Dr. Desai, respectively at [facility].PET showed possible L2 and pelvic node recurrence ofprostate cancer s/p prostatectomy. A recommendation was made for lumbar spine MRI and the patient prefers to have it at this hospital,[facility]. I have requested the MRI [...] at the [facility] showed [place] 4+5 involving 20 to 50% of 3 cores from the targeted lesion. There was an intraductal carcinoma component present. The remaining tissue was negative for malignancy. 02/08/2019 - Cancer Staged Staging form: Prostate, AJCC 8th Edition - Clinical stage from 02/08/2019: Stage IIIC (cT1c, cN0, cM0, PSA: 7.3, Grade Group: 5, 02/08/19, [place]: 4, +: 5) - Signed by Loenid Tipton MD, MPH on 06/06/2021 02/22/2019 - Cancer Staged February 22, 2019: Nuclear medicine bone scan at [facility] showed no evidence of bony metastatic disease 05/18/2019 Surgery May 18, 2019: Radical prostatectomy with pathology reviewed at [facility] showed [place] 4+5 involving 10% of [...] +: 5) , high risk for recurrence PMH: Osteoarthritis, anxiety, history of spinal cord injury [...] retired Tobacco Use ??? Smoking status: Never Smoker ??? Smokeless tobacco: Current User Types: Chew ??? Tobacco comment: 3 cans/ week. Vaping Use ??? Vaping Use: Never used Substance and Sexual Activity ??? Alcohol use: Yes Alcohol/week: 0.0 - 1.0 standard drinks Comment: 1 drink per month ??? Drug use: No ??? Sexual activity: Yes Partners: Female Other Topics Concern ??? Do You live alone? Not Asked ??? Tobacco in Home Not Asked Social History Narrative ??? Not on file Social Determinants of Health Financial Resource Strain: Unknown ??? Difficulty of Paying Living Expenses: Patient refused Food Insecurity: Unknown ??? Worried About Running Out of Food in the Last Year: Patient refused ??? Ran Out of Food in the Last Year: Patient refused Transportation Needs: Not on file Physical Activity: Not on file Housing Stability: Unknown ??? Unable to Pay for Housing in the Last Year: Patient refused ??? Number of Places Lived in the Last Year: Not on file ??? Unstable Housing in the Last Year: Patient refused Family History: Mother had bone cancer Family History Problem Relation Age of Onset ??? Cancer Mother bone ??? Diabetes Father ??? Cancer Father testicular Allergies: Allergies Allergen Reactions ??? Penicillins Anaphylaxis Tongue swelling ??? Betamethasone hiccups after injection ??? Dexamethasone Hiccups after injection Your Medications Accurate as of July 26, 2021 11:59 PM. If you have any questions, ask your nurse or doctor. Continued medications, unchanged Dose Details aspirin EC 81 mg Tbec Take 81 mg by mouth daily. 81 mg Refills: 0 MALCOLM EXTRACT ORAL Take by mouth. Refills: 0 multivitamin Tab Commonly known as: THERAGRAN Take 1 tablet by mouth daily. 1 tablet Refills: 0 tadalafiL 5 mg Tab Commonly known as: CIALIS Take 5 mg by mouth as needed for Erectile Dysfunction. 5 mg Refills: 0 Tylenol Arthritis Pain 650 mg Tbsr Take 650 mg by mouth every 8 hours as needed for Pain. Do not exceed 6 tabs in 24 hours Generic drug: acetaminophen 650 mg Refills: 0 Review of Systems: Constitutional: Positive for weight loss HEENT: Hearing loss Eyes: Negative. Respiratory: Negative for cough, shortness of breath and wheezing. Cardiovascular: Negative for chest pain, palpitations and leg swelling. Gastrointestinal: Negative for nausea, vomiting, abdominal pain, diarrhea, constipation and abdominal distention. Genitourinary: Negative for dysuria and difficulty urinating. Musculoskeletal: Back pain and arthralgia Skin: Negative. Neurological: Negative. Hematological: Negative for adenopathy. PE: General: AAAx3, in NAD Head: Normocephalic, without obvious abnormality, atraumatic Eyes: PERRL, conjunctiva/corneas clear, EOM's intact, fundi benign, both eyes Ears: Normal TM's and external ear canals, both ears Nose: Nares normal, septum midline, mucosa normal, no drainage or sinus tenderness Throat: Lips, mucosa, and tongue normal; teeth and gums normal Neck: Supple, symmetrical, trachea midline, no adenopathy, thyroid: not enlarged, symmetric, no tenderness/mass/nodules, no carotid bruit or JVD Back: Symmetric, no curvature, ROM normal, no CVA tenderness Lungs: Clear to auscultation bilaterally, respirations unlabored Chest Wall: No tenderness or deformity Heart: Regular rate and rhythm, S1, S2 normal, no murmur, rub or gallop Abdomen: Soft, non-tender, bowel sounds active all four quadrants, no masses, no organomegaly. There is no appreciable ascites Extremities: Extremities normal, atraumatic, no cyanosis or edema Pulses: 2+ and symmetric Skin: Skin color, texture, turgor normal, no rashes or lesions Lymph nodes: Cervical, supraclavicular, and axillary nodes normal Neurologic: Normal Vitals BP 137/82 (Patient Position: Sitting) Pulse 69 Temp 36.3 ??C (97.3 ??F) (Temporal) Resp 18 Ht 181.7 cm (5' 11.54) Comment: with shoes Wt 87.3 kg (192 lb 6.4 oz) Comment: with shoes SpO2 100% BMI 26.43 kg/m?? Pathology: 05/18/2019 Outside slide(s) labeled [id number], collection date 05/18/2019. A) Soft tissue, left [...] ?Regional Lymph Nodes (pN): ??pN0 Labs: Recent PSA history: 06/23/2019 0.02 10/06/2019 <0.01 01/03/2020 <0.01 04/20/2020 0.02 08/29/2020 0.05 11/03/2020 0.09 01/08/2021 0.14 02/07/2021 0.172 05/07/2021 0.253 Imagin07/12/2021 lumbar spine MRI: IMPRESSION No evidence of osseous metastasis in the lumbar spine. Mild lumbar spondylosis as above, similar to prior exam. ?? PSMA-PET, 06/29/21 ([facility] reading): 1. Mildly avid bilateral subcentimeter [...] to regional lymph nodes Treatment: See above Mr. Mckeon was initially diagnosed with high risk prostate cancer in 2019. He underwent radical prostatectomy. PSA has been slowly rising and reached level of biochemical recurrence. He followed with Dr. White. He obtained second opinion Dr. Leonid Tipton and Dr. Desai, at [facility]. Had a restaging PSM a PET scan [...] he decides to proceed with treatment at [facility]. I am happy to see him on as-needed basis. The plan was discussed with the patient in details. All questions were answered to patient satisfaction. This encounter was primarily counseling-based (>50 % [...] 11:30 AM EDT Office [place] [address] Charline Ziegler MD [facility] [place] [address] documented as of this encounter Visit Diagnoses Diagnosis Prostate cancer metastatic to intrapelvic lymph node documented in this encounter Care Teams Service Order Expediter Relationship Specialty Start Date End Date Reji Adams MD [facility] GENERAL [place] [address] PCP - General General Internal Medicine 07/13/15 documented as of this encounter
--- OUTSIDE RECORDS SUMMARY | 2024-07-09 11:09 | XMS_ITS | Encounter Summary ---
Author Organization [facility] [place] [address] Care Team Providers Care Early Childhood Services Coordinator Name Role Phone Reji Adams MD Primary Care Provider [phone] Reason for Visit * Reason Onset Date Comments Medication Refill 04/03/2021 Encounter Details Date Type Department Care Team (Late st Contact Info) Description 04/03/2021 Refill Internal Medicine at [address] [address] Reji Adams MD [facility] GENER[place] [address] Anxiety Social History Tobacco Use Types Packs/Day [...] 11:30 AM EDT Office [place] [address] Charline Ziegler MD [facility] [place] [address] documented as of this encounter Visit Diagnoses Diagnosis Anxiety Anxiety state, unspecified documented in this encounter Care Teams Early Childhood Services Coordinator Relationship Specialty Start Date End Date Reji Adams MD [facility] [place] [address] PCP - General General Internal Medicine 07/13/15 documented as of this encounter
--- OUTSIDE RECORDS SUMMARY | 2024-07-09 11:09 | XMS_ITS | Encounter Summary ---
Author Organization [facility] Address [place] [address] Care Team Providers Care Stenotype Operator Name Role Phone Reji Adams MD Primary Care Provider [phone] Reason for Referral * Diagnostic Test (Routine) - Closed Specialty Diagnoses / Procedures Referred By Contac t Referred To Contact Radiology Diagnoses Sacral insufficiency fracture with delayed healing, subsequent encounter Procedures CT Guided Sacroplasty/Vertebroplasty CT Guided Sacroplasty/Vertebroplasty Tressa Ivory APRN [facility] [place] [address] [facility] [place] [address] Referral ID Status Reason Start Date Expiration Date V isits Requested Visits Authorized [id number] Closed Specialty Service Requested 04/19/2022 10/18/2023 1 1 Reason for Visit * Consultation (Routine) - Closed Specialty Diagnoses / Procedures Referred By Contac t Referred To Contact Radiology Diagnoses Sacral Insufficiency Fracture Procedures Sacroplasty Erik Olson PA [address] [place] [place] [address] [facility] [place] [address] Referral ID Status Reason Start Date Expiration Date V isits Requested Visits Authorized [id number] Closed Consult, Test & Treat 04/16/2022 04/16/2023 1 1 Encounter Details Date Type Department Care Team (Late st Contact Info) Description 04/19/2022 11:00 AM EDT TH Visit (TeleHealth) [facility] [place] [address] Tressa Ivory, MARYBEL [facility] [place] [address] Sacral insufficiency fracture with delayed healing, subsequent encounter Social History Tobacco Use [...] of this encounter Progress Notes * Tressa Ivory, MARYBEL - 04/19/2022 11:00 AM EDT Images from the original note were not included. Neuroradiology Telehealth Consult FOCUSED H&P and PRE-PROCEDURE NOTE: PCP: Reji Adams MD Referring Provider: MATT Chandler Consultation Indication: Sacral insufficiency fractures/L5 vertebral compression fracture Procedure request received through Interventional Radiology eDH order queue. Presenting Diagnosis/ Complaint: Ken Mckeon is a 76 y.o. male with low back and sacral pain forapprox. 3 months. He reports his pain has improved some since it started but it remains at a 5/10 consistently, worsening with movement, walking, and lifting. He states his pain is significantly limiting his ability to maintain his activity level. He is currently being treated for Prostate CA and was told to walk daily as part of his treatment. Until this pain began he was walking approximately 1hour per day, now he can only walk in short 15 minute blocks d/t pain. He is using a cane or walkerto ambulate d/t pain and instability. He denies radicular pain, extremity weakness, or bowel/bladder dysfunction. Recent MRI shows acute/subacute bilateral sacral insufficiency fractures and an L5 vertebral compression fracture, with marrow edema noted. Past Medical/Surgical History: Patient Active Problem List Diagnosis Code ??? 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 Pure hypercholesterolemia E78.00 Medications: Current Outpatient Medications on File Prior to Visit Medication Sig Dispense Refill ??? celecoxib (CeleBREX) 100 mg Capsule ??? gabapentin (Neurontin) 100 mg Capsule ??? leuprolide, 3 month, (Eligard, 3 month,) Syringe Inject 1 mg subcutaneously. ??? ALPRAZolam (Xanax) 0.25 mg Tablet Take 1 tablet by mouth 3 times daily as needed for Anxiety. 90 tablet 0 ??? abiraterone (Zytiga) 250 mg Tablet Take 1,000 mg by mouth daily. ??? multivitamin Capsule Take 2 capsules by mouth Daily. ??? predniSONE (Deltasone) 5 mg Tablet Take [...] Allergies: Penicillins, Betamethasone, Dexamethasone, and Triamcinolone acetonide Labs: Lab Results Component Value Date PLATELET 198 05/29/2021 INR 1.1 11/22/2015 ALKPHOS 62 05/29/2021 AST 21 05/29/2021 ALBUMIN 4.6 05/29/2021 BILIDIR 0.2 11/30/2020 BILITOT 0.9 05/29/2021 ALT 15 05/29/2021 Imaging: MRI Lumbar Spine 04/09/22 Physical Exam: Pending (to be performed in angio the day of procedure) ASA: Pending (to be assessed in angio the day of procedure) Mallampati Class: Pending (to be assessed in angio the day of procedure) Assessment: 76 y.o. 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 His pain and disability have failed to improved despite conservative therapy. We discussed the sacroplasty and vertebroplasty procedures, their risks and benefits, including thepotential for limited pain reduction d/t moderate nature of current pain, and I answered all of hisquestions. After this discussion, he would like to move forward with this procedure. He states he is unable to lay on his stomach d/t back pain and does not feel he could tolerate this with moderate sedation only. I will request general anesthesia for this procedure. He is not taking anticoagulation medications and has not contraindications for this procedure. I discussed the patient images, tele-health fin dings, and plan with Dr. Wili Howard Plan: - Will proceed with CT guided sacroplasty and L5 vertebroplasty Procedure with general anesthesia - Labs to be obtained on day of procedure: Platelet count/INR - Meds to hold: None - Position: Prone - Antibiotic prophylaxis: Clindamycin 900 mg IV x1 dose - Sedation: General - Consent: To be obtained the day of the procedure Patient verbally consents to this telephone visit and understands that this visit may be billed, similar to a clinic office visit. I provided care to the patient today via telephone call. The total time associated with this visit was 30 minutes. Tressa Ivory, MSN, CLINICAL MICROBIOLOGIST 04/19/2022 11:21 AM documented in this encounter Plan of Treatment Upcoming Encounters Date Type Department Care Team (Late st Contact Info) Description 12/15/2024 11:30 AM EDT Office [place] [address] Charline Ziegler MD [facility] [place] [address] (work) documented as of this encounter Results * CT Guided Sacroplasty/Vertebroplasty [...] who have questions please contact the health elderly caregiver that requested your imaging first. ? [...] the anterior right sacrum. A second 13-gauge Betterton needle was advanced into the anterior left [...] CLINICAL HISTORY: Bilateral sacral insufficiency fractures and [id number] compression fracture COMPARISON: MRI thoracic and lumbar spine 04/09/2022 PROCEDURE: Informed consent was obtained. Preprocedure timeout was performed. Thesacrum and L5 vertebral body were identified following a preprocedure planning CTscan. The overlying skin was prepped and draped in a sterile fashion. 1%lidocaine was used for skin and periosteal anesthesia. A 13-gauge Betterton needle was advanced into the anterior right sacrum. Asecond 13-gauge Betterton needle was advanced into the anterior left sacrum. [id number] Betterton needle was advanced through the left pedicle [...] patients who have questions please contactthe health elderly caregiver that requested your imaging first. Tressa Ynes Ivory APRN IMG CT ORDERABLES documented in this encounter Visit Diagnoses Diagnosis Sacral insufficiency fracture with delayed healing, subsequent encounter Sacral insufficiency fracture with delayed healing, subsequent encounter documented in this encounter Care Teams Stenotype Operator Relationship Specialty Start Date End Date Reji Adams MD [facility] [place] [address] PCP - General General Internal Medicine 07/13/15 documented as of this encounter
--- OUTSIDE RECORDS SUMMARY | 2024-07-09 11:09 | XMS_ITS | Encounter Summary ---
Author Organization [facility] [place] [address] Care Team Providers Care Grocery Clerk Name Role Phone Reji Adams MD Primary Care Provider [phone] Encounter Details Date Type Department Care Team (Late st Contact Info) Description 03/13/2022 Ancillary Procedure Radiology at [facility] [address] [place] [id number] Bright Casanova MD [address] [place] [address] Social History Tobacco Use Types Packs/Day Years [...] EDT Office [place] [address] Charline Ziegler MD [facility] [place] [address] documented as of this encounter Procedures Procedure Name Priority Date/Time Associated Diagnosis Comments FILM LIBRARY STORAGE ONLY MR HIP Routine 03/13/2022 12:00 AM EDT documented in this encounter Results * Film Library- Storage Only MR Hip (03/13/2022 12:00 AM EDT) Narrative [facility] - 03/25/2022 10:23 AM EDT This exam is auto-finalizing. It's purpose is for storage only. Bright Casanova MD IMG FILM LIBRARY ORD ERABLES [place], [place] documented in this encounter Visit Diagnoses Not on filedocumented in this encounter Care Teams Grocery Clerk Relationship Specialty Start Date End Date Reji Adams MD [facility] GENERAL [place] [address] PCP - General General Internal Medicine 07/13/15 documented as of this encounter
--- OUTSIDE RECORDS SUMMARY | 2024-07-09 11:09 | XMS_ITS | Encounter Summary ---
Author Organization [facility] Address [facility] [place] [address] Care Team Providers Care Child Development Associate Teacher Name Role Phone Reji Adams MD Primary Care Provider [phone] Reason for Visit * Reason Onset Date Comments Medication Refill 10/02/2021 Encounter Details Date Type Department Care Team (Late st Contact Info) Description 10/02/2021 Refill Internal Medicine at [address] [address] Reji Adams MD [facility] [place] [address] Anxiety Social History Tobacco Use Types Packs/Day [...] 11:30 AM EDT Office [place] [address] Charline Ziegler MD [facility] [place] [address] documented as of this encounter Visit Diagnoses Diagnosis Anxiety Anxiety state, unspecified documented in this encounter Care Teams Child Development Associate Teacher Relationship Specialty Start Date End Date Reji Adams MD [facility] [place] [address] PCP - General General Internal Medicine 07/13/15 documented as of this encounter
--- OUTSIDE RECORDS SUMMARY | 2024-07-09 11:09 | XMS_ITS | Encounter Summary ---
Author Organization [facility] [place] [address] Care Team Providers Care Mass Spectrometry Manager Name Role Phone Reji Adams MD Primary Care Provider [phone] Reason for Referral * Diagnostic Test (Routine) - Closed Specialty Diagnoses / Procedures Referred By Contac t Referred To Contact Radiology Diagnoses Thoracic back pain, unspecified back pain laterality, unspecified chronicity Procedures MRI Thoracic Spine wo Contrast (Generic) Erik Olson PA [address] [place] [address] [facility] [address] [place] [id number] Referral ID Status Reason Start Date Expiration Date V isits Requested Visits Authorized [id number] Closed Specialty Service Requested 03/29/2022 09/27/2023 1 1 * Diagnostic Test (Routine) - Closed Specialty Diagnoses / Procedures Referred By Contac t Referred To Contact Radiology Diagnoses Lumbar back pain Procedures MRI Lumbar Spine wo Contrast (Generic) Erik Olson PA [address] [place] [address] [facility] [address] [place] [address] Referral ID Status Reason Start Date Expiration Date V isits Requested Visits Authorized [id number] Closed Specialty Service Requested 03/29/2022 09/27/2023 1 1 Reason for Visit * Diagnostic Test (Routine) - Closed Specialty Diagnoses / Procedures Referred By Contac t Referred To Contact Radiology Diagnoses Thoracic back pain, unspecified back pain laterality, unspecified chronicity Procedures MRI Thoracic Spine wo Contrast (Generic) Erik Olson PA [address] [place] [address] [facility] [address] [place] [address] Referral ID Status Reason Start Date Expiration Date V isits Requested Visits Authorized [id number] Closed Specialty Service Requested 03/29/2022 09/27/2023 1 1 Encounter Details Date Type Department Care Team (Latest Contact Info) Description 04/09/2022 12:11 PM EDT - 04/09/2022 11:59 PM EDT Hospital Encounter Radiology MRI at [facility] [address] [place] [address] Erik Olson PA [address] [place] [address] Lumbar back pain; Thoracic back pain, unspecified back pain laterality, [...] tablet Take 1 tablet by mouth daily. celecoxib (CeleBREX) 100 mg Capsule Take 100 mg by mouth as needed. 02/11/2022 11/08/2022 gabapentin (Neurontin) 100 mg Capsule Take 100 mg by mouth. 02/26/20222021 leuprolide, 3 month, (Eligard) Syringe Inject 1 mg subcutaneously. 08/06/2021 11/08/2022 ALPRAZolam (Xanax) 0.25 mg TabletIndications:An xiety Take 1 tablet by mouth 3 times daily as needed for Anxiety. 90 tablet 03/17/2022 04/19/2022 abiraterone (Zytiga) 250 mg Tablet Take 1,000 [...] 11:30 AM EDT Office [place] [address] Charline Ziegler MD [facility] [place] [address] documented as of this encounter Procedures Procedure Name Priority Date/Time Associated Diagnosis Comments MRI LUMBAR SPINE WITHOUT CONTRAST Routine 04/09/2022 2:00 PM EDT Lumbar back pain MRI THORACIC SPINE WITHOUT CONTRAST Routine 04/09/2022 2:00 PM EDT Thoracic back pain, unspecified back pain laterality, unspecified chronicity documented in this encounter Results * MRI Thoracic Spine wo Contrast (Generic) (04/09/2022 2:00 PM EDT) Anatomical Region Laterality Modality T-spine Magnetic Resonan ce Addenda Addendum by Niki Holly MD on 04/09/2022 3:04 PM EDT --------ADDENDUM #1-------- If there is pain at the level of this unhealed fracture it may?be amenable to vertebroplasty or vertebral augmentation to treat the pain. Consider consultation with neuroradiology (phone [phone]). Thank you for letting us participate in the care of this patient. ??If you are a health care provider and have any questions regarding this report, please contact the number below. ??For patients who have questions please contact the health residential child care counselor that requested your imaging first. ? --------ORIGINAL REPORT -------- EXAMINATION: MRI LUMBAR SPINE WO CONTRAST (GENERIC), MRI THORACIC SPINE WO CONTRAST (GENERIC) CLINICAL HISTORY: Known lumbar disc disease with progressive right leg pain and gait abnormality (accession [id number]), 6 months worsening thoracic pain with leg weakness hx thoracic spondylosis (accession [id number]) TECHNIQUE: MRI of the thoracic and lumbar spine was performed without contrast, routine radiculopathy protocol. COMPARISON: Lumbar spine 07/12/2021, MRI total spine 12/08/2020 FINDINGS: Thoracic: Mild exaggeration of midthoracic kyphosis with chronic slight anterior wedging of mid thoracic vertebrae most prominent at T7. Multilevel disc degenerative change, with mild height loss at T6-7, T7-8 and T8-9. Mild diffuse heterogeneity of the regional marrow signal with small hemangioma in the superior T8 vertebral body. Small endplate Schmorl's nodes in the inferior thoracic spine. Central disc protrusion at C7-T1 indents the ventral thecal sac and mildly flattens the ventral cord. Tiny right paracentral disc protrusion at T6-7 and tiny left paracentral disc protrusion and T9-10. Facet arthropathy at T10-T11 indents the dorsal thecal sac and contributes to mild neural foraminal narrowing.. Disc bulge and facet arthropathy at T11-T12 contribute to mild to moderate canal narrowing. Mild to moderate T11-T12 neural foraminal narrowing. No new large disc herniation. Lumbar: Laminectomy changes at L4-5 and L5-S1. Slight levoconvex curvature. Trace retrolisthesis of L2 with respect to L3. Mild diffuse heterogeneity of the regional marrow signal. Edema in the endplates at L5 which is new from exam performed in 2020, with appearance of fracture fracture lines on the T1-weighted sequence. Edema within the sacral ala and across S2 vertebral body consistent with unhealed insufficiency fractures. Chronic anterior wedging of T12 and L1. The conus is normal in signal and caliber, terminating at the mid L1 level. Visualized retroperitoneal contents are unremarkable. Findings at individual levels: T12-L1: ??Facet arthropathy. Minimal neural foraminal narrowing. L1-L2: ??Broad disc bulge indents ventral thecal sac. Facet arthropathy indents the dorsal thecal sac concerning to mild to moderate central canal narrowing and moderate subarticular recess narrowing. ??Mild to moderate neural foraminal narrowing. L2-L3: Laminotomy changes. Apposition of the spinous processes. Retrolisthesis, disc bulge with height loss. Mild canal narrowing. Facet spurs and marginal endplate osteophytes produce stenosis at the entrance to the neural foramen; moderate to severe on the right and moderate on the left. The findings appear similar to the prior study. L3-L4: ??Annular disc bulge and hypertrophic facet arthropathy. No canal stenosis. Mild to moderate right neural foraminal narrowing. Superimposed left foraminal disc protrusion contributes to moderate left neural foraminal narrowing and displaces the left L3 nerve root. ??Findings appear similar to the prior study. L4-L5: ??Laminectomy changes. Hypertrophic facet change and lateral bone mass graft contribute to mild subarticular recess narrowing. No central canal stenosis. ??Mild neural foraminal narrowing. ??The findings are similar to the prior study. L5-S1: ??No significant spinal canal or neural foraminal stenosis. IMPRESSION: 1. ??Unhealed H shaped sacral insufficiency fractures partially visualized. 2. ??Unhealed fractures in the L5 vertebral body. 3. ??Similar degenerative changes of the lumbar spine with neural foraminal stenosis as above. 4. ??Mild degenerative changes of the thoracic spine. Comment: The following findings are so common in people without low back pain that while we report their presence, they must be interpreted with caution and in context of the clinical situation (Reference- Jarvik et al, Spine 2001). Findings: (Prevalence in patients without [...] who have questions please contact the health residential child care counselor that requested your imaging first. ? Electronically signed by: Niki Holly [facility] ([phone]), at 04/09/2022 2:22 PM Impressions 04/09/2022 2:22 PM EDT 1. ??Unhealed H shaped sacral insufficiency fractures partially visualized. 2. ??Unhealed fractures in the L5 vertebral body. 3. ??Similar degenerative changes of the lumbar spine with neural foraminal stenosis as above. 4. ??Mild degenerative changes of the thoracic spine. Comment: The following findings are so common in people without low back pain that while we report their presence, they must be interpreted with caution and in context of the clinical situation (Reference- Mike et al, Spine 2001). Findings: (Prevalence in patients without [...] who have questions please contact the health residential child care counselor that requested your imaging first. ? Electronically signed by: Niki Holly [facility] ([phone]), at 04/09/2022 2:22 PM Narrative 04/09/2022 2:22 PM EDT EXAMINATION: MRI LUMBAR SPINE WO CONTRAST (GENERIC), MRI THORACIC SPINE WO CONTRAST (GENERIC) CLINICAL HISTORY: Known lumbar disc disease with progressive right leg pain and gait abnormality (accession [id number]), 6 months worsening thoracic pain with leg weakness hx thoracic spondylosis (accession [id number]) TECHNIQUE: MRI of the thoracic and lumbar spine was performed without contrast, routine radiculopathy protocol. COMPARISON: Lumbar spine 07/12/2021, MRI total spine 12/08/2020 FINDINGS: Thoracic: Mild exaggeration of midthoracic kyphosis with chronic slight anterior wedging of mid thoracic vertebrae most prominent at T7. Multilevel disc degenerative change, with mild height loss at T6-7, T7-8 and T8-9. Mild diffuse heterogeneity of the regional marrow signal with small hemangioma in the superior T8 vertebral body. Small endplate Schmorl's nodes in the inferior thoracic spine. Central disc protrusion at C7-T1 indents the ventral thecal sac and mildly flattens the ventral cord. Tiny right paracentral disc protrusion at T6-7 and tiny left paracentral disc protrusion and T9-10. Facet arthropathy at T10-T11 indents the dorsal thecal sac and contributes to mild neural foraminal narrowing.. Disc bulge and facet arthropathy at T11-T12 contribute to mild to moderate canal narrowing. Mild to moderate T11-T12 neural foraminal narrowing. No new large disc herniation. Lumbar: Laminectomy changes at L4-5 and L5-S1. Slight levoconvex curvature. Trace retrolisthesis of L2 with respect to L3. Mild diffuse heterogeneity of the regional marrow signal. Edema in the endplates at L5 which is new from exam performed in 2020, with appearance of fracture fracture lines on the T1-weighted sequence. Edema within the sacral ala and across S2 vertebral body consistent with unhealed insufficiency fractures. Chronic anterior wedging of T12 and L1. The conus is normal in signal and caliber, terminating at the mid L1 level. Visualized retroperitoneal contents are unremarkable. Findings at individual levels: T12-L1: ??Facet arthropathy. Minimal neural foraminal narrowing. L1-L2: ??Broad disc bulge indents ventral thecal sac. Facet arthropathy indents the dorsal thecal sac concerning to mild to moderate central canal narrowing and moderate subarticular recess narrowing. ??Mild to moderate neural foraminal narrowing. L2-L3: Laminotomy changes. Apposition of the spinous processes. Retrolisthesis, disc bulge with height loss. Mild canal narrowing. Facet spurs and marginal endplate osteophytes produce stenosis at the entrance to the neural foramen; moderate to severe on the right and moderate on the left. The findings appear similar to the prior study. L3-L4: ??Annular disc bulge and hypertrophic facet arthropathy. No canal stenosis. Mild to moderate right neural foraminal narrowing. Superimposed left foraminal disc protrusion contributes to moderate left neural foraminal narrowing and displaces the left L3 nerve root. ??Findings appear similar to the prior study. L4-L5: ??Laminectomy changes. Hypertrophic facet change and lateral bone mass graft contribute to mild subarticular recess narrowing. No central canal stenosis. ??Mild neural foraminal narrowing. ??The findings are similar to the prior study. L5-S1: ??No significant spinal canal or neural foraminal stenosis. Procedure Note Niki Holly MD - 04/09/2022 EXAMINATION: MRI LUMBAR SPINE WO CONTRAST (GENERIC), MRI THORACIC SPINEWO CONTRAST (GENERIC) CLINICAL HISTORY: Known lumbar disc disease with progressive right leg pain and gaitabnormality (accession [id number]), 6 months worsening thoracic pain with leg weaknesshx thoracic spondylosis (accession [id number]) TECHNIQUE: MRI of the thoracic and lumbar spine was performed withoutcontrast, routine radiculopathy protocol. COMPARISON: Lumbar spine 07/12/2021, MRI total spine 12/08/2020 FINDINGS: Thoracic: Mild exaggeration of midthoracic kyphosis with chronic slightanterior wedging of mid thoracic vertebrae most prominent at T7. Multilevel disc degenerative change, with mild height loss at T6-7, T7-8 and T8-9. Milddiffuse heterogeneity of the regional marrow signal with small hemangioma in the superior T8 vertebral body. Small endplate Schmorl's nodes in theinferior thoracic spine. Central disc protrusion at C7-T1 indents the ventralthecal sac and mildly flattens the ventral cord. Tiny right paracentral discprotrusion at T6-7 and tiny left paracentral disc protrusion and T9-10. Facetarthropathy at T10-T11 indents the dorsal thecal sac and contributes to mild neuralforaminal narrowing.. Disc bulge and facet arthropathy at T11-T12 contribute to mildto moderate canal narrowing. Mild to moderate T11-T12 neural foraminalnarrowing. No new large disc herniation. Lumbar: Laminectomy changes at L4-5 and L5-S1. Slight levoconvexcurvature. Trace retrolisthesis of L2 with respect to L3. Mild diffuse heterogeneityof the regional marrow signal. Edema in the endplates at L5 which is new fromexam performed in 2020, with appearance of fracture fracture lines on theT1-weighted sequence. Edema within the sacral ala and across S2 vertebral bodyconsistent with unhealed insufficiency fractures. Chronic anterior wedging of T12 andL1. The conus is normal in signal and caliber, terminating at the mid H2zhxsb. Visualized retroperitoneal contents are unremarkable. Findings at individual levels: T12-L1: Facet arthropathy. Minimal neural foraminal narrowing. L1-L2: Broad disc bulge indents ventral thecal sac. Facet arthropathyindents the dorsal thecal sac concerning to mild to moderate central canalnarrowing and moderate subarticular recess narrowing. Mild to moderate neuralforaminal narrowing. L2-L3: Laminotomy changes. Apposition of the spinous processes.Retrolisthesis, disc bulge with height loss. Mild canal narrowing. Facet spurs andmarginal endplate osteophytes produce stenosis at the entrance to the neuralforamen; moderate to severe on the right and moderate on the left. The findingsappear similar to the prior study. L3-L4: Annular disc bulge and hypertrophic facet arthropathy. No canal stenosis. Mild to moderate right neural foraminal narrowing. Superimposedleft foraminal disc protrusion contributes to moderate left neural foraminal narrowing and displaces the left L3 nerve root. Findings appear similarto the prior study. L4-L5: Laminectomy changes. Hypertrophic facet change and lateral bonemass graft contribute to mild subarticular recess narrowing. No central canal stenosis. Mild neural foraminal narrowing. The findings are similar tothe prior study. L5-S1: No significant spinal canal or neural foraminal stenosis. IMPRESSION 1. Unhealed H shaped sacral insufficiency fractures partiallyvisualized. 2. Unhealed fractures in the L5 vertebral body. 3. Similar degenerative changes of the lumbar spine with neuralforaminal stenosis as above. 4. Mild degenerative changes of the thoracic spine. Comment: The following findings are so common in people without low backpain that while we report their presence, they must be interpreted with cautionand in context of the clinical situation (Reference- Richk et al, [id number]). Findings: (Prevalence in patients without low back [...] patients who have questions please contactthe health residential child care counselor that requested your imaging first. Erik GUTIERREZ [facility] [place]AB[place] * MRI Lumbar Spine wo Contrast (Generic) (04/09/2022 2:00 PM EDT) Anatomical Region Laterality Modality L-spine Magnetic Resonan ce Addenda Addendum by Niki Holly MD on 04/09/2022 3:04 PM EDT --------ADDENDUM #1-------- If there is pain at the level of this unhealed fracture it may?be amenable to vertebroplasty or vertebral augmentation to treat the pain. Consider consultation with neuroradiology (phone [phone]). Thank you for letting us participate in the care of this patient. ??If you are a health care provider and have any questions regarding this report, please contact the number below. ??For patients who have questions please contact the health residential child care counselor that requested your imaging first. ? Electronically signed by: Niki Holly [facility] ([phone]), at 04/09/2022 2:59 PM --------ORIGINAL REPORT -------- EXAMINATION: MRI LUMBAR SPINE WO CONTRAST (GENERIC), MRI THORACIC SPINE WO CONTRAST (GENERIC) CLINICAL HISTORY: Known lumbar disc disease with progressive right leg pain and gait abnormality (accession [id number]), 6 months worsening thoracic pain with leg weakness hx thoracic spondylosis (accession [id number]) TECHNIQUE: MRI of the thoracic and lumbar spine was performed without contrast, routine radiculopathy protocol. COMPARISON: Lumbar spine 07/12/2021, MRI total spine 12/08/2020 FINDINGS: Thoracic: Mild exaggeration of midthoracic kyphosis with chronic slight anterior wedging of mid thoracic vertebrae most prominent at T7. Multilevel disc degenerative change, with mild height loss at T6-7, T7-8 and T8-9. Mild diffuse heterogeneity of the regional marrow signal with small hemangioma in the superior T8 vertebral body. Small endplate Schmorl's nodes in the inferior thoracic spine. Central disc protrusion at C7-T1 indents the ventral thecal sac and mildly flattens the ventral cord. Tiny right paracentral disc protrusion at T6-7 and tiny left paracentral disc protrusion and T9-10. Facet arthropathy at T10-T11 indents the dorsal thecal sac and contributes to mild neural foraminal narrowing.. Disc bulge and facet arthropathy at T11-T12 contribute to mild to moderate canal narrowing. Mild to moderate T11-T12 neural foraminal narrowing. No new large disc herniation. Lumbar: Laminectomy changes at L4-5 and L5-S1. Slight levoconvex curvature. Trace retrolisthesis of L2 with respect to L3. Mild diffuse heterogeneity of the regional marrow signal. Edema in the endplates at L5 which is new from exam performed in 2020, with appearance of fracture fracture lines on the T1-weighted sequence. Edema within the sacral ala and across S2 vertebral body consistent with unhealed insufficiency fractures. Chronic anterior wedging of T12 and L1. The conus is normal in signal and caliber, terminating at the mid L1 level. Visualized retroperitoneal contents are unremarkable. Findings at individual levels: T12-L1: ??Facet arthropathy. Minimal neural foraminal narrowing. L1-L2: ??Broad disc bulge indents ventral thecal sac. Facet arthropathy indents the dorsal thecal sac concerning to mild to moderate central canal narrowing and moderate subarticular recess narrowing. ??Mild to moderate neural foraminal narrowing. L2-L3: Laminotomy changes. Apposition of the spinous processes. Retrolisthesis, disc bulge with height loss. Mild canal narrowing. Facet spurs and marginal endplate osteophytes produce stenosis at the entrance to the neural foramen; moderate to severe on the right and moderate on the left. The findings appear similar to the prior study. L3-L4: ??Annular disc bulge and hypertrophic facet arthropathy. No canal stenosis. Mild to moderate right neural foraminal narrowing. Superimposed left foraminal disc protrusion contributes to moderate left neural foraminal narrowing and displaces the left L3 nerve root. ??Findings appear similar to the prior study. L4-L5: ??Laminectomy changes. Hypertrophic facet change and lateral bone mass graft contribute to mild subarticular recess narrowing. No central canal stenosis. ??Mild neural foraminal narrowing. ??The findings are similar to the prior study. L5-S1: ??No significant spinal canal or neural foraminal stenosis. IMPRESSION: 1. ??Unhealed H shaped sacral insufficiency fractures partially visualized. 2. ??Unhealed fractures in the L5 vertebral body. 3. ??Similar degenerative changes of the lumbar spine with neural foraminal stenosis as above. 4. ??Mild degenerative changes of the thoracic spine. Comment: The following findings are so common in people without low back pain that while we report their presence, they must be interpreted with caution and in context of the clinical situation (Reference- Richk et al, Spine 2001). Findings: (Prevalence in patients without [...] who have questions please contact the health residential child care counselor that requested your imaging first. ? Electronically signed by: Niki Holly [facility] ([phone]), at 04/09/2022 2:22 PM Impressions 04/09/2022 2:22 PM EDT 1. ??Unhealed H shaped sacral insufficiency fractures partially visualized. 2. ??Unhealed fractures in the L5 vertebral body. 3. ??Similar degenerative changes of the lumbar spine with neural foraminal stenosis as above. 4. ??Mild degenerative changes of the thoracic spine. Comment: The following findings are so common in people without low back pain that while we report their presence, they must be interpreted with caution and in context of the clinical situation (Reference- Richk et al, Spine 2001). Findings: (Prevalence in patients without [...] who have questions please contact the health residential child care counselor that requested your imaging first. ? Electronically signed by: Niki Holly [facility] ([phone]), at 04/09/2022 2:22 PM Narrative 04/09/2022 2:22 PM EDT EXAMINATION: MRI LUMBAR SPINE WO CONTRAST (GENERIC), MRI THORACIC SPINE WO CONTRAST (GENERIC) CLINICAL HISTORY: Known lumbar disc disease with progressive right leg pain and gait abnormality (accession [id number]), 6 months worsening thoracic pain with leg weakness hx thoracic spondylosis (accession [id number]) TECHNIQUE: MRI of the thoracic and lumbar spine was performed without contrast, routine radiculopathy protocol. COMPARISON: Lumbar spine 07/12/2021, MRI total spine 12/08/2020 FINDINGS: Thoracic: Mild exaggeration of midthoracic kyphosis with chronic slight anterior wedging of mid thoracic vertebrae most prominent at T7. Multilevel disc degenerative change, with mild height loss at T6-7, T7-8 and T8-9. Mild diffuse heterogeneity of the regional marrow signal with small hemangioma in the superior T8 vertebral body. Small endplate Schmorl's nodes in the inferior thoracic spine. Central disc protrusion at C7-T1 indents the ventral thecal sac and mildly flattens the ventral cord. Tiny right paracentral disc protrusion at T6-7 and tiny left paracentral disc protrusion and T9-10. Facet arthropathy at T10-T11 indents the dorsal thecal sac and contributes to mild neural foraminal narrowing.. Disc bulge and facet arthropathy at T11-T12 contribute to mild to moderate canal narrowing. Mild to moderate T11-T12 neural foraminal narrowing. No new large disc herniation. Lumbar: Laminectomy changes at L4-5 and L5-S1. Slight levoconvex curvature. Trace retrolisthesis of L2 with respect to L3. Mild diffuse heterogeneity of the regional marrow signal. Edema in the endplates at L5 which is new from exam performed in 2020, with appearance of fracture fracture lines on the T1-weighted sequence. Edema within the sacral ala and across S2 vertebral body consistent with unhealed insufficiency fractures. Chronic anterior wedging of T12 and L1. The conus is normal in signal and caliber, terminating at the mid L1 level. Visualized retroperitoneal contents are unremarkable. Findings at individual levels: T12-L1: ??Facet arthropathy. Minimal neural foraminal narrowing. L1-L2: ??Broad disc bulge indents ventral thecal sac. Facet arthropathy indents the dorsal thecal sac concerning to mild to moderate central canal narrowing and moderate subarticular recess narrowing. ??Mild to moderate neural foraminal narrowing. L2-L3: Laminotomy changes. Apposition of the spinous processes. Retrolisthesis, disc bulge with height loss. Mild canal narrowing. Facet spurs and marginal endplate osteophytes produce stenosis at the entrance to the neural foramen; moderate to severe on the right and moderate on the left. The findings appear similar to the prior study. L3-L4: ??Annular disc bulge and hypertrophic facet arthropathy. No canal stenosis. Mild to moderate right neural foraminal narrowing. Superimposed left foraminal disc protrusion contributes to moderate left neural foraminal narrowing and displaces the left L3 nerve root. ??Findings appear similar to the prior study. L4-L5: ??Laminectomy changes. Hypertrophic facet change and lateral bone mass graft contribute to mild subarticular recess narrowing. No central canal stenosis. ??Mild neural foraminal narrowing. ??The findings are similar to the prior study. L5-S1: ??No significant spinal canal or neural foraminal stenosis. Procedure Note Niki Holly MD - 04/09/2022 EXAMINATION: MRI LUMBAR SPINE WO CONTRAST (GENERIC), MRI THORACIC SPINEWO CONTRAST (GENERIC) CLINICAL HISTORY: Known lumbar disc disease with progressive right leg pain and gaitabnormality (accession [id number]), 6 months worsening thoracic pain with leg weaknesshx thoracic spondylosis (accession [id number]) TECHNIQUE: MRI of the thoracic and lumbar spine was performed withoutcontrast, routine radiculopathy protocol. COMPARISON: Lumbar spine 07/12/2021, MRI total spine 12/08/2020 FINDINGS: Thoracic: Mild exaggeration of midthoracic kyphosis with chronic slightanterior wedging of mid thoracic vertebrae most prominent at T7. Multilevel disc degenerative change, with mild height loss at T6-7, T7-8 and T8-9. Milddiffuse heterogeneity of the regional marrow signal with small hemangioma in the superior T8 vertebral body. Small endplate Schmorl's nodes in theinferior thoracic spine. Central disc protrusion at C7-T1 indents the ventralthecal sac and mildly flattens the ventral cord. Tiny right paracentral discprotrusion at T6-7 and tiny left paracentral disc protrusion and T9-10. Facetarthropathy at T10-T11 indents the dorsal thecal sac and contributes to mild neuralforaminal narrowing.. Disc bulge and facet arthropathy at T11-T12 contribute to mildto moderate canal narrowing. Mild to moderate T11-T12 neural foraminalnarrowing. No new large disc herniation. Lumbar: Laminectomy changes at L4-5 and L5-S1. Slight levoconvexcurvature. Trace retrolisthesis of L2 with respect to L3. Mild diffuse heterogeneityof the regional marrow signal. Edema in the endplates at L5 which is new fromexam performed in 2020, with appearance of fracture fracture lines on theT1-weighted sequence. Edema within the sacral ala and across S2 vertebral bodyconsistent with unhealed insufficiency fractures. Chronic anterior wedging of T12 andL1. The conus is normal in signal and caliber, terminating at the mid L1gwqqv. Visualized retroperitoneal contents are unremarkable. Findings at individual levels: T12-L1: Facet arthropathy. Minimal neural foraminal narrowing. L1-L2: Broad disc bulge indents ventral thecal sac. Facet arthropathyindents the dorsal thecal sac concerning to mild to moderate central canalnarrowing and moderate subarticular recess narrowing. Mild to moderate neuralforaminal narrowing. L2-L3: Laminotomy changes. Apposition of the spinous processes.Retrolisthesis, disc bulge with height loss. Mild canal narrowing. Facet spurs andmarginal endplate osteophytes produce stenosis at the entrance to the neuralforamen; moderate to severe on the right and moderate on the left. The findingsappear similar to the prior study. L3-L4: Annular disc bulge and hypertrophic facet arthropathy. No canal stenosis. Mild to moderate right neural foraminal narrowing. Superimposedleft foraminal disc protrusion contributes to moderate left neural foraminal narrowing and displaces the left L3 nerve root. Findings appear similarto the prior study. L4-L5: Laminectomy changes. Hypertrophic facet change and lateral bonemass graft contribute to mild subarticular recess narrowing. No central canal stenosis. Mild neural foraminal narrowing. The findings are similar tothe prior study. L5-S1: No significant spinal canal or neural foraminal stenosis. IMPRESSION 1. Unhealed H shaped sacral insufficiency fractures partiallyvisualized. 2. Unhealed fractures in the L5 vertebral body. 3. Similar degenerative changes of the lumbar spine with neuralforaminal stenosis as above. 4. Mild degenerative changes of the thoracic spine. Comment: The following findings are so common in people without low backpain that while we report their presence, they must be interpreted with cautionand in context of the clinical situation (Reference- Mike et al, [id number]). Findings: (Prevalence in patients without low back [...] patients who have questions please contactthe health residential child care counselor that requested your imaging first. Erik GUTIERREZ IMJaylon MRI ORDERABLES documented in this encounter Visit Diagnoses Diagnosis Lumbar back pain Lumbago Thoracic back pain, unspecified back pain laterality, unspecified chronicity documented in this encounter Care Teams Mass Spectrometry Manager Relationship Specialty Start Date End Date Reji Adams MD [facility] [place] [address] PCP - General General Internal Medicine 07/13/15 documented as of this encounter
--- OUTSIDE RECORDS SUMMARY | 2024-07-09 11:09 | XMS_ITS | Encounter Summary ---
Author Organization [facility] Address [facility] [place] [address] Care Team Providers Care Product Expert Name Role Phone Reji Adams MD Primary Care Provider [phone] Reason for Visit * Reason Onset Date Comments Medication Refill 11/15/2021 Encounter Details Date Type Department Care Team (Late st Contact Info) Description 11/15/2021 Refill Internal Medicine at [address] [address] Reji Adams MD [facility] [place] [address] Social History Tobacco Use Types Packs/Day Years [...] 11:30 AM EDT Office [place] [address] Charline Ziegler MD [facility] [address] documented as of this encounter Visit Diagnoses Not on filedocumented in this encounter Care Teams Product Expert Relationship Specialty Start Date End Date Reji Adams MD [facility] [place] [address] PCP - General General Internal Medicine 07/13/15 documented as of this encounter
--- OUTSIDE RECORDS SUMMARY | 2024-07-09 11:09 | XMS_ITS | Encounter Summary ---
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 Procedures MRI Lumbar Spine wwo Contrast Manuel White MD [address] [place] [phone] [facility] Rad Mri [address] [place] [address] Referral ID Status Reason Start Date Expiration Date V isits Requested Visits Authorized [id number] Closed Specialty Service Requested 07/04/2021 01/02/2023 1 1 Reason for Visit * Diagnostic Test (Routine) - Closed Specialty Diagnoses / Procedures Referred By Contac t Referred To Contact Radiology Diagnoses 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 ALPRAZolam (Xanax) 0.25 mg TabletIndications:Anxie ty Take 1 tablet by mouth 3 times daily as needed for Anxiety. 90 tablet 07/07/2021 08/15/2021 pravastatin (Pravachol) 20 mg Tablet Take 1 tablet by mouth daily. 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 Mild lumbar spondylosis as above, similar to prior exam. Comment: The following findings are so common [...] (64%), disc protrusion (32%), annular fissure (38%). I have personally reviewed the image(s) and the resident's interpretation and agree with the findings, Tre Cr MD at 07/12/2021 8:47 AM Thank you for letting us participate in the care of this patient. ??If you are a health care provider and have any questions regarding this report, please contact the number below. ??For patients who have questions please contact the health nurse behavioral health care that requested your imaging first. ? Narrative 07/12/2021 8:47 AM EST EXAMINATION: MRI LUMBAR SPINE WWO CONTRAST CLINICAL HISTORY: PSMA PET at [place] uptake L2 right post pedicle. R/O prostate mets TECHNIQUE: MRI of the lumbar spine was performed before and after the intravenous administration of 18cc Dotarem. COMPARISON: Spine MR 12/08/2020 FINDINGS: Unchanged grade 1 retrolisthesis of L2 on L3. There is solid osseous fusion across the L4-S1 posterior elements as on previous exams. No aggressive appearing marrow lesions. No abnormal enhancement. No soft tissue mass. The conus is normal in signal and terminates at the superior endplate of L1. T12-L1: No significant canal or neural foraminal narrowing. L1-2: Disc disc bulge with superimposed left paracentral disc protrusion narrowing the left subarticular recess. L2-3: Retrolisthesis, small bilateral foraminal disc protrusions and facet arthropathy contribute to moderate right and mild left neural foraminal narrowing. No significant canal narrowing. L3-4: Disc bulge, facet arthropathy contributing to mild moderate bilateral foraminal stenosis. L4-5: No significant canal or neural foraminal narrowing. L5-S1: No significant canal or neural foraminal narrowing. Retroperitoneum: Unchanged bilateral renal cysts as further characterized on previous abdominal MRI. Procedure Note Tre Cr MD - 07/12/2021 EXAMINATION: MRI LUMBAR SPINE WWO CONTRAST CLINICAL HISTORY: PSMA PET at [place] uptake L2 right post pedicle. R/O prostate mets TECHNIQUE: MRI of the lumbar spine was performed before and after the intravenous administration of 18cc Dotarem. COMPARISON: Spine MR 12/08/2020 FINDINGS: Unchanged grade 1 retrolisthesis of L2 on L3. There is solid osseousfusion across the L4-S1 posterior elements as on previous exams. No aggressive appearing marrow lesions. No abnormal enhancement. No soft tissue mass.The conus is normal in signal and terminates at the superior endplate of L1. T12-L1: No significant canal or neural foraminal narrowing. L1-2: Disc disc bulge with superimposed left paracentral disc protrusion narrowing the left subarticular recess. L2-3: Retrolisthesis, small bilateral foraminal disc protrusions andfacet arthropathy contribute to moderate right and mild left neural foraminal narrowing. No significant canal narrowing. L3-4: Disc bulge, facet arthropathy contributing to mild moderatebilateral foraminal stenosis. L4-5: No significant canal or neural foraminal narrowing. L5-S1: No significant canal or neural foraminal narrowing. Retroperitoneum: Unchanged bilateral renal cysts as further characterizedon previous abdominal MRI. IMPRESSION No evidence of osseous metastasis in the lumbar spine. Mild lumbarspondylosis as above, similar to prior exam. Comment: The following findings are so common in people without low backpain that while we report their presence, they must be interpreted with cautionand in context of the clinical situation (Reference- Richk Et Al, [id number]). Findings: (Prevalence in patients without low back pain), discdegeneration (decreased T2 signal, height loss, bulge) (91%), disc T2-signal loss(83%), disc height loss (56%), disc bulge (64%), disc protrusion (32%), annularfissure (38%). I have personally reviewed the image(s) and the resident's interpretationand agree with the findings, Tre Cr MD at 07/12/2021 8:47 AM Thank you for letting us participate in the care of this patient. If youare a health care provider and have any questions regarding this report,please contact the number below. For patients who have questions please contactthe health nurse behavioral health care that requested your imaging first. 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 Malignant neoplasm of prostate documented in this encounter Administered Medications Inactive Administered Medications - up to 3 most recent administrations Medication Order MAR Action Action Date Dose Rate Site gadoterate meglumine (Dotarem) (0.5 mMol/mL) injection solution 0-100 mL 0-100 mL, Intravenous, ONCE PRN, 1 dose, Starting on Alice 07/12/21 at 0734, Until Alice 07/12/21 at 0732, Per Protocol, Radiology Contrast, Routine Given 07/12/2021 7:32 AM EST 18 mLs documented in this encounter Care Teams Lurer Relationship Specialty Start Date End Date Reji Adams MD [facility] [place] [address] PCP - General General Internal Medicine 07/13/15 documented as of this encounter
--- OUTSIDE RECORDS SUMMARY | 2024-07-09 11:09 | XMS_ITS | Encounter Summary ---
Author Organization [facility] Address [facility] [place] [address] Care Team Providers Care Credit Card Interviewer Name Role Phone Reji Adams MD Primary Care Provider [phone] Reason for Visit * Reason Onset Date Comments Other 08/13/2021 Encounter Details Date Type Department Care Team (Late st Contact Info) Description 08/13/2021 Telephone Internal Medicine at [address] [address] Reji Adams MD [facility] [address] Other Social History Tobacco Use Types Packs/Day [...] encounter Miscellaneous Notes * Telephone Encounter - Venkat Russell - 08/15/2021 10:38 AM EST Christianne stated she has still not received the last echo for the Pt, please fax to [phone] as soon as possible. * Telephone Encounter - Jade Smith - 08/13/2021 9:34 AM EST Message: Christianne is calling from [facility] to have the patient's last echo faxed over to them at fax# [phone] Ask caller their first and last name and relationship to the patient: Christianne- [facility] cardiology Best time to call back: any Ok to leave a message: y Ok to send [facility] message: n Offered Appointment: n MA/Nurse/Head Housekeeper contacted via: Message: y Call: y Pager: n documented in this encounter Plan of Treatment Upcoming Encounters Date Type Department Care Team (Late st Contact Info) Description 12/15/2024 11:30 AM EDT Office [place] [address] Charline Ziegler MD [facility] [place] [address] documented as of this encounter Visit Diagnoses Not on filedocumented in this encounter Care Teams Credit Card Interviewer Relationship Specialty Start Date End Date Reji Adams MD [facility] [address] PCP - General General Internal Medicine 07/13/15 documented as of this encounter
--- OUTSIDE RECORDS SUMMARY | 2024-07-09 11:09 | XMS_ITS | Encounter Summary ---
Author Organization [facility] Address [facility] [place] [address] Care Team Providers Care Machine Shorthand Teacher Name Role Phone Reji Adams MD Primary Care Provider [phone] Reason for Visit * Reason Comments Other Just not feeling gr eat - very fatigued, achy, palpitations Encounter Details Date Type Department Care Team (Late st Contact Info) Description 05/29/2021 11:00 AM EDT Office Visit Internal Medicine at [address] [id number] Law Sanchez MD [facility] [place] [address] Fatigue, unspecified type; Shortness of breath Social History Tobacco Use Types Packs/Day Years [...] Sign Reading Time Taken Comments Blood Pressure 121/68 05/29/2021 11:18 AM EDT Pulse 61 05/29/2021 11:18 AM EDT Temperature 36.9 ??C (98.5 ??F) 05/29/2021 1 1:18 AM EDT Respiratory Rate - - Oxygen Saturation 100% 05/29/2021 11: 18 AM EDT Inhaled Oxygen Concentration - - Weight 87.2 kg (192 lb 3.2 oz) 05/29/2021 11:18 AM EDT with shoes on Height 179.1 cm (5' 10.5) 05/29/2021 1 1:18 AM EDT approx - patient reported Body Mass Index 27.19 05/29/2021 11:18 AM EDT documented in this encounter Patient Instructions * Patient Instructions* Law Sanchez MD - 05/29/2021 11:00 AM EDT As you have had symptoms of fatigue over the past 1-2 weeks, we will be checking your blood counts,kidney function, liver function and thyroid tests, to evaluate for possible causes of your symptoms. Additionally, as you have had these episodes of palpitations, please take note of when they occur and if they are associated with lightheadedness, dizziness, or shortness of breath, as you may need aheart monitor to evaluate for more consistent abnormal heart rhythms that may be causing your symptoms. Otherwise, if you continue to have worsening fatigue, fever/chills, cough/shortness of breath, please reach out to the office for further evaluation. documented in this encounter Progress Notes * Law Sanchez MD - 05/29/2021 11:00 AM EDT Subjective: Patient ID: Ken Mckeon is a 75 y.o. male with a PMH of Anxiety, hyperlipidemia, thyroidisits, and prostate cancer with recent that presents for significant fatigue for one week. Chief Complaint Patient presents with ??? Other Just not feeling great - very fatigued, achy, palpitations Patient reports that starting one week ago, he noticed that he had decreased energy. Usually, he would wake up feeling okay, and will have a decrease in energy by mid morning that continues to worsen throughout the day. He would typically fall asleep around 1am, however due to his decrease energy, he has been going to be around 10pm. Despite this increase time of sleeping, he has felt that his sleep has been less restorative. Additionally, he has had 5 pound weight gain over the past three months. He has also had episodes of palpitations, lasting up to 10 minutes, though has been able to cough to cause the episode to resolve. He has not had reduction in his exercise capacity, reporting that he has continued to be able to go on his daily 1 mile walks.. He has noticed increased itching of his armpits and scalp, which have both felt more dry than usual. He has been using aloe lotion on those areas with only mild benefit. He denies sick contacts or travel. He does endorse that he had a spider bite a two months, but has not noticed any tick bites and checks regularly. He takes the alprazolam daily, but this has not increased in frequency. He also endorses that when he bends down, and comes back up, he will become lightheadedness, though this has not changed. He reports that he has had increased anxiety and stress secondary to his diagnosis of recurrence ofprostate cancer. He has been waiting to have an appointment with a possible prostate-specific imaging scan in [place], and has an appointment 06/07, and is nervous if they will do the scan or not. This has been causing a significant amount of anxiety. He denies changes in vision, or acute changes in hearing (reports some slow hearing loss over the year), cough, dry mouth, chest pain, abdominal pain, nausea/vomiting, constipation/diarrhea, changes in urination, hematuria/hematochezia/melena, muscle aches/jointn pains Social History Tobacco Use ??? Smoking status: Never Smoker ??? Smokeless tobacco: Current User Types: Chew ??? Tobacco comment: 3 cans/ week. Vaping Use ??? Vaping Use: Never used Substance Use Topics ??? Alcohol use: Yes Alcohol/week: 0.0 - 1.0 standard drinks Comment: 1 drink per month ??? Drug use: No Past Medical History: Diagnosis Date ??? BPH (benign prostatic hyperplasia) ??? Neck pain 08/24/2012 ??? OA (osteoarthritis) of knee right Current Outpatient Medications on File Prior to [...] EXTRACT ORAL Take by mouth. ??? acetaminophen (TYLENOL ARTHRITIS PAIN) 650 mg Tablet Sustained Release Take 650 mg by mouth every 8 hours as needed for Pain. Do not exceed 6 tabs in 24 hours ??? aspirin 81 mg Tablet, Delayed Release (E.C.) Take 81 mg by mouth daily. ??? multivitamin (THERAGRAN) tablet Take 1 tablet by mouth daily. No current facility-administered medications on file prior to visit. Family History Problem Relation Age of Onset ??? Cancer Mother bone ??? Diabetes Father ??? Cancer Father testicular Objective: BP 121/68 (BP Location (NBP): Left arm, Patient Position: Sitting, BP Cuff Sizes: Adult (25-34 cm))Comment (BP Cuff Sizes): Long cuff Pulse 61 Temp 36.9 ??C (98.5 ??F) (Oral) Ht 179.1 cm (5' 10.5) Comment: approx - patient reported Wt 87.2 kg (192 lb 3.2 oz) Comment: with shoes on SpO2 100% BMI 27.19 kg/m?? PHQ-9 QUESTIONNAIRE SCORE ONLY (AMB) 11/22/2016 PHQ - 9 Score (Clinic) 6 (Mild Depression) Some recent data might be hidden Wt Readings from Last 3 Encounters: 05/29/21 87.2 kg (192 lb 3.2 oz) 03/08/21 85.2 kg (187 lb 12.8 oz) 02/15/21 85.7 kg (189 lb) Physical Exam: General: Well appearing older male, in no apparent distress able to relate her history HEENT: PERRLA, EOMI, sclera anicteric, mucous membranes moist, good dentition, no lymphadenopathy Cardiac: Regular rate and rhythm, normal S1/S2, no murmurs, rubs or gallops Respiratory: Clear to auscultation, no wheezes, rhonchi or rales Abdomen: Soft, non-tender, non-distended, normal active bowel sounds Skin: Warm, pink, no evidence of dry skin on axilla Extremities: Wearing leg compression stockings Assessment and Plan: # Fatigue - Patient has a history of thyroid issues, with reported dry scalp and armpit skin, with weight gain over the past three months - Will check a TSH/Free T4 - Will check a CBC and CMP to evaluate for other etiologies of fatigue - Denies any recent tick exposures, lower concern for tick-borne pathologies - Reported palpitations, without associated dizziness/lightheadedness or other symptoms - Will check a pro-BNP to rule out signs of atrial strain - Will hold off on Ziopatch evaluation at this time - Discussed to contact the office if palpitations increase in frequency or are associated with lightheadedness or dizziness. Follow-up in 3 month * Law Loja MD - 05/29/2021 11:00 AM EDT The case was discussed in person at the time of the visit or immediately after the visit. The assessment and plan were formulated in discussion with me and I agree with them as documented. I have reviewed the history, physical exam, assessment and plan with the resident. Major issues discussed today: 75 yo M with one week of fatigue. Falling asleep earlier in the evening (3 hours earlier than normal bedtime) and feels sleep is lessrestorative. +weight gain. Episodes of rapid heart rate that last 'about 10 minutes'; these abort with a 'deep cough.' More dryness in his axillae and scalp, he reports. Denies MARTIN, GI changes, vision changes, hearing changes, CP, changes in urination, muscle aches or joint pains. No recent travel. No recent tick bites. Anxiety is baseline; on alprazolam daily, needs/use have not increased. Recurrent prostate cancer has caused some more concerns. Wears compression stockings. Plan: - thyroid studies - CBC, CMP - BNP documented in this encounter Plan of Treatment Upcoming Encounters Date Type Department Care Team (Late st Contact Info) Description 12/15/2024 11:30 AM EDT Office Visit [place] [address] Charline Ziegler MD [facility] [place] [address] documented as of this encounter Procedures Procedure Name Priority Date/Time Associated Diagnosis Comments HEMOGRAM Routine 05/29/2021 12:22 PM EDT Fatigue, unspecified type DIFFERENTIAL, AUTOMATED Routine 05/29/2021 12:22 PM EDT Fatigue, unspecified type HC CBC,PLT & AUTO DIFF Routine 12:22 PM EDT Fatigue, unspecified type HC THYROID STIMULATING HORMONE, SERUM Routine 05/29/2021 12:22 PM EDT Fatigue, unspecified type HC FREE THYROXINE (T4) Routine 12:22 PM EDT Fatigue, unspecified type HC VENIPUNCTURE Routine 05/29/2021 12:22 PM EDT Fatigue, unspecified type Shortness of breath COMPREHENSIVE METABOLIC PANEL Routine 05/29/2021 12:22 PM EDT Fatigue, unspecified type documented in this encounter Results * Differential, Automated (05/29/2021 12:22 PM EDT) Neutrophil % 47.8 % [facility] Neutrophil Absolute 3.39 1.70 - 6.10 x10(3)/[facility] Lymph % 41.7 % [facility] Lymphocytes Abs 3.0 0.9 - 3.2 x10(3)/[facility] Monocyte % 7.9 % [facility] Monocyte Abs 0.6 0.3 - 0.9 x10(3)/[facility] Eos % 1.7 % [facility] Eosinophils Abs 0.1 0.0 - 0.4 x10(3)/[facility] Basophil % 0.6 % [facility] Baso Absolute 0.0 0.0 - 0.1 x10(3)/[facility] Immature Gran % 0.30 % [facility] Comment: Immature granulocytes(IG's)percentage and absolute count will include metamyelocytes, myelocytes, and promyelocytes. Blood smears from CBCs yielding IG's will be scanned manually for concordance. If this scan disagrees with the automated IG or if promyelocytes are noted, a manual differential will be performed. Immature Gran Absolute 0.02 0.00 - 0.04 x10(3)/[facility] Blood 05/29/2021 12:2 2 PM EDT 05/29/2021 6:59 PM EDT Narrative Resulting Agency Comment Spec In Lab Law Sanchez MD HEMATOLOGY ORDERABLE S [facility] [address] * (ABNORMAL) Hemogram (05/29/2021 12:22 PM EDT) White Blood Cell 7.1 4.0 - 9.5 x10(3)/[facility] Red Blood Cell 5.02 4.58 - 5.54 x10(6)/[facility] Hemoglobin 15.3 13.7 - 16.5 g/dL [facility] Hematocrit 46.5 40.5 - 48.5 % [facility] Mean Cell Volume 92.6 82.9 - 93.1 fL [facility] Mean Cell Hemoglobin 30.5 27.5 - 32.1 pg [facility] Mean Cell Hemoglobin Concentration 32.9 32.0 - 35.7 g/dL [facility] Platelet 198 145 - 357 x10(3)/ L [facility] RDW Standard Deviation 48.5(H) 36.0 - 45.0 fL [facility] RDW coefficient of variation 14.1(H) 11.4 - 13.8 % [facility] Mean Platelet Volume 9.8 7.6 - 12.9 fL [facility] NRBC% auto 0.0 % [facility] NRBC Absolute 0.000 0.000 - 0.000 x10(3)/mc L [facility] Blood 05/29/2021 12:2 2 PM EDT 05/29/2021 6:59 PM EDT Narrative Resulting Agency Comment Spec In Lab Law Sanchez MD HEMATOLOGY ORDERABLE S Performing Organization Address City/[facility]/ZIP Co de Phone Number [facility] [place] [address] * (ABNORMAL) pro-Brain Natriuretic Peptide (05/29/2021 12:22 PM EDT) NT-proBNP 169(H) <=124 pg/mL [facility] Blood 05/29/2021 12:2 2 PM EDT 05/29/2021 7:12 PM EDT Narrative Resulting Agency Comment Spec In Lab Law Loja MD CHEMISTRY ORDERABLE S Performing Organization Address [facility] Co de Phone Number [facility] [address] * Comprehensive metabolic panel (non-fasting) (05/29/2021 12:22 PM EDT) Glucose 90 65 - 199 mg/dL [facility] Comment:Diabetes: >=200 mg/d L plus symptoms Blood Urea Nitrogen 11 10 - 20 mg/dL [facility] Creatinine 0.97 0.80 - 1.50 mg/dL [facility] Sodium 138 135 - 145 mmol/L [facility] Potassium 4.7 3.5 - 5.0 mmol/L [facility] Comment: Please note: ??Patients with WBC >100,000 may have falsely elevated Potassium levels. ??For accurate Potassium quantification in these patients send serum separator tube (gold top) for subsequent determinations. ??Contact the Clinical Chemistry Laboratory if there are any questions. Chloride 104 98 - 107 mmol/L [facility] Carbon Dioxide 29 22 - 31 mmol/L [facility] Anion Gap 5 5 - 15 mmol/L [facility] Calcium 9.6 8.5 - 10.5 mg/dL [facility] Protein, Total 7.1 6.1 - 8.0 g/dL [facility] Albumin 4.6 3.2 - 5.2 g/dL [facility] Aspartate Aminotransferase 21 0 - 39 unit/L [facility] Alanine Aminotransferase 15 0 - 55 unit/L [facility] Alkaline Phosphatase 62 40 - 130 unit/L [facility] Bilirubin, Total 0.9 0.2 - 1.3 mg/dL [facility] Est Glomerular Filtration Rate 77 >=60 mL/min/1. 73 m?? [facility] Comment: This patient? s estimated glomerular filtration rate (eGFR) is between 77 mL/min/1.73 m2 (patients with less muscle mass per kg body weight) and 89 mL/min/1.73 m2 (patients with more muscle mass per kg body weight) as determined by the CKD-EPI equation. Assessment of eGFR is not appropriate when creatinine concentrations are rapidly changing. For clinical decisions where creatinine clearance will affect therapy, a 24-hour urine creatinine clearance may be advised. Assignment of CKD stage 1 - 5 for patients with an eGFR near the transition point between stages may be based on clinical assessment of muscle mass and symptoms in addition to eGFR. Blood 05/29/2021 12:2 2 PM EDT 05/29/2021 7:12 PM EDT Narrative Resulting Agency Comment Spec In Lab Law Loja MD CHEMISTRY ORDERABLE S [facility] [place] [address] * T4, free (05/29/2021 12:22 PM EDT) Free T4 1.12 0.93 - 1.70 ng/dL [facility] Comment: Reference Interval (ng/dL): Females: ??First Trimester: 0.97-1.68 ??Second Trimester: 0.77-1.51 ??Third Trimester: 0.77-1.49 Blood 05/29/2021 12:2 2 PM EDT 05/29/2021 7:12 PM EDT Narrative Resulting Agency Comment Spec In Lab Law Loja MD CHEMISTRY ORDERABLE S Performing Organization Address [facility] Co de Phone Number [facility] [place] [address] * TSH (05/29/2021 12:22 PM EDT) Thyroid Stimulating Hormone 1.69 0.27 - 4.20 mcIU/mL [facility] Comment: Reference Interval (mcIU/mL): Females: ??First Trimester: 0.23-3.88 ??Second Trimester: 0.22-3.90 ??Third Trimester: 0.44-4.66 Blood 05/29/2021 12:2 2 PM EDT 05/29/2021 7:12 PM EDT Narrative Resulting Agency Comment Spec In Lab Law Loja MD CHEMISTRY ORDERABLE S Performing Organization Address City/[facility]/ZIP Co de Phone Number [facility] [address] documented in this encounter Visit Diagnoses Diagnosis Fatigue, unspecified type Shortness of breath Shortness of breath documented in this encounter Care Teams Machine Shorthand Teacher Relationship Specialty Start Date End Date Reji Adams MD [facility] [place] [address] PCP - General General Internal Medicine 07/13/15 documented as of this encounter
--- OUTSIDE RECORDS SUMMARY | 2024-07-09 11:09 | XMS_ITS | Encounter Summary ---
Author Organization [facility] [place] [address] Care Team Providers Care [place] Name Role Phone Reji Adams MD Primary Care Provider [phone] Encounter Details Date Type Department Care Team (Late st Contact Info) Description 02/04/2022 Telephone Internal Medicine at [address] [address] Dafne Hickey, RN Social History [...] EDT Office [place] [address] Charline Ziegler MD [facility] [place] [address] documented as of this encounter Visit Diagnoses Not on filedocumented in this encounter Care Teams [place]el Relationship Specialty Start Date End Date Reji Adams MD [facility] [place] [address] PCP - General General Internal Medicine 07/13/15 documented as of this encounter
--- OUTSIDE RECORDS SUMMARY | 2024-07-09 11:09 | XMS_ITS | Encounter Summary ---
Author Organization [facility] Address [facility] [place] [address] Care Team Providers Care Billing Department Supervisor Name Role Phone Reji Adams MD Primary Care Provider [phone] Reason for Visit * Reason Onset Date Comments Other 06/11/2021 Encounter Details Date Type Department Care Team (Late st Contact Info) Description 06/11/2021 Telephone Internal Medicine at [address] [address] Reji Adams MD [facility] [place] [address] Other Social History Tobacco Use Types Packs/Day [...] encounter Miscellaneous Notes * Telephone Encounter - Zoya Rutherford Jim - 06/11/2021 9:48 AM EST Message: Patient is calling back upset in regards to his request to have the imaging done for cardiology at [facility] and states he reached out to them and they have not yet received it. Please call back to discuss. Justin Rollins... I called [facility] and they did not receive the heart Ultrasound referral / order. The direct fax number is: [phone] They requested that , when sending, the fax number be entered manually as electronic scan does not always work. Thank you for your help. Gregg Ask caller their first and last name and relationship to the patient: patient Best time to call back: any Ok to leave a message: y Ok to send [facility] message: y Offered Appointment: n MA/Nurse/Burr Bench Operator contacted via: Message: y Call: n Pager: n documented in this encounter Plan of Treatment Upcoming Encounters Date Type Department Care Team (Late st Contact Info) Description 12/15/2024 11:30 AM EDT Office [place] [address] Charline Ziegler MD [facility] [place] [address] documented as of this encounter Visit Diagnoses Diagnosis Fatigue, unspecified type Shortness of breath documented in this encounter Care Teams Billing Department Supervisor Relationship Specialty Start Date End Date Reji Adams MD [facility] [place] [address] PCP - General General Internal Medicine 07/13/15 documented as of this encounter
--- OUTSIDE RECORDS SUMMARY | 2024-07-09 11:09 | XMS_ITS | Encounter Summary ---
Author Organization [facility] Address [facility] [place] [address] Care Team Providers Care Client Renewal Specialist Name Role Phone Reji Adams MD Primary Care Provider [phone] Encounter Details Date Type Department Care Team (Late st Contact Info) Description 08/20/2021 4:30 PM EST Office Visit [place] [address] Savanah Hernandez APRN [facility] [place] [address] Sudden left hearing loss Social History Tobacco Use Types [...] - Inhaled Oxygen Concentration - - Weight 84.4 kg (186 lb) 08/20/2021 3:35 PM EST Height 179.1 cm (5' 10.5) 08/20/2021 3:35 PM ES T Body Mass Index 26.31 08/20/2021 3:35 PM EST documented in this encounter Progress Notes * Savanah Hernandez, MARYBEL - 08/20/2021 4:30 PM EST Otolaryngology Same Day Note Date of Visit: 08/20/2021 Location of Visit: Otolaryngology Clinic, [facility] Chief Complaint: Gregg is a 75 year old being seen as a SDA with c/o sudden hearing loss on the left x a day. Interval History: Gregg is a 75 year old with [...] several previous audio evaluations in the past thatshow asymmetry L > R. He has had [...] hiccups when he takes Dexamethasone/and or Betamethasone. Past Medical History: Other then above, see [...] Neuro: CN III-XII grossly intact. Audio: Asymmetrical SNHL. Thresholds on the left decreased by 15dB at 250, 3,000 and 4,000Hz. 20dB at 1,000-2,000 Hz. 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 HE has had a reaction with hiccups on the past when given a steroid. He feels his hearing has improved since yesterday. I will hold on starting the oral prednisone and recheck his audio in a week and then see me. If anything changeshe should call ENT to update. Savanah GARCIA [facility] Otolaryngology-Head and Neck Surgery [place], [place] [address] documented in this encounter Plan of Treatment Upcoming Encounters Date Type Department Care Team (Late st Contact Info) Description 12/15/2024 11:30 AM EDT Office Visit [place] [address] Charline Ziegler MD [facility] [place] [address] documented as of this encounter Visit Diagnoses Diagnosis Sudden left hearing loss Sudden hearing loss, unspecified documented in this encounter Care Teams Client Renewal Specialist Relationship Specialty Start Date End Date Reji Adams MD [facility] [place] [address] PCP - General General Internal Medicine 07/13/15 documented as of this encounter
--- OUTSIDE RECORDS SUMMARY | 2024-07-09 11:09 | XMS_ITS | Encounter Summary ---
Author Organization Counts [facility] [address] [facility] [address] Care Team Providers Care Supervisor [employer] Name Role Phone Reji Adams MD Primary Care Provider [phone] Encounter Details Date Type Department Care Team (Late st Contact Info) Description 03/07/2022 Telephone Internal Medicine at [address] [address] Amrita Webster, RN Social History [...] 11:30 AM EDT Office [place] [address] Charline Ziegler MD [facility] [place] [address] documented as of this encounter Visit Diagnoses Not on filedocumented in this encounter Care Teams Supervisor [employer] Relationship Specialty Start Date End Date Reji Adams MD [facility] GENER[facility] [place] [address] PCP - General General Internal Medicine 07/13/15 documented as of this encounter
--- OUTSIDE RECORDS SUMMARY | 2024-07-09 11:09 | XMS_ITS | Encounter Summary ---
Author Organization Formerly [facility] [place] [address] Care Team Providers Care Toll Operator Name Role Phone Reji Adams MD Primary Care Provider [phone] Encounter Details Date Type Department Care Team (Late st Contact Info) Description 06/29/2021 Ancillary Procedure Radiology Library at [facility] [place] [id number] Rayo Davis MD Social History Tobacco Use Types Packs/Day [...] 11:30 AM EDT Office [place] [phone] Charline Ziegler MD [facility] [place] [address] documented as of this encounter Procedures Procedure Name Priority Date/Time Associated Diagnosis Comments FILM LIBRARY STORAGE ONLY NM PET/CT Routine 06/29/2021 12:00 AM EST documented in this encounter Results * Film Library- Storage Only NM Pet / CT (06/29/2021 12:00 AM EST) Narrative TOMEKA - 08/07/2021 9:09 AM EST This exam is auto-finalizing. It's purpose is for storage only. Rayo Davis MD IMG FILM LIBRARY ORD ERABLES [place], [place] documented in this encounter Visit Diagnoses Not on filedocumented in this encounter Care Teams Toll Operator Relationship Specialty Start Date End Date Reji Adams MD [facility] GENERAL [place] [address] PCP - General General Internal Medicine 07/13/15 documented as of this encounter
--- OUTSIDE RECORDS SUMMARY | 2024-07-09 11:09 | XMS_ITS | Encounter Summary ---
Author Organization [facility] [place] [address] Care Team Providers Care Superintendent Circus Name Role Phone Reji Adams MD Primary Care Provider [phone] Encounter Details Date Type Department Care Team (Late st Contact Info) Description 03/07/2022 Telephone Internal Medicine at [address] [address] Amrita Webster, RN Social History [...] Telephone Encounter - Amrita Webster RN - 03/07/2022 9:44 AM EDTSummary: АЛЕКСАНДР Rogers ID'd by name and Ken has had increasing pain in his right hip for the last 5-6 weeks. It has gotten so bad that he is now using a cane to walk. He has had bilateral hip replacements. He was taking tylenol but started taking Celebrex daily and is going to start taking 100mg Celebrex twice a day now. Gregg said he'd seen the Orthopedist who did XRs and has also been to Physical therapy where they did,just a few stretching exercises. Gregg thinks he may need imaging. Appointment made for Gregg with Dr. Loja for Friday. Gregg will call or go to the Emergency Department if pain becomes worse. documented in this encounter Plan of Treatment Upcoming Encounters Date Type Department Care Team (Late st Contact Info) Description 12/15/2024 11:30 AM EDT Office [place] [address] Charline Ziegler MD [facility] [place] [address] documented as of this encounter Visit Diagnoses Not on filedocumented in this encounter Care Teams Superintendent Circus Relationship Specialty Start Date End Date Reji Adams MD [facility] [place] [address] PCP - General General Internal Medicine 07/13/15 documented as of this encounter
--- OUTSIDE RECORDS SUMMARY | 2024-07-09 11:09 | XMS_ITS | Encounter Summary ---
Author Organization [facility] Address [facility] [place] [address] Care Team Providers Care Retail Client Manager Name Role Phone Reji Adams MD Primary Care Provider [phone] Reason for Visit * Reason Onset Date Comments Medication Refill 01/02/2022 Encounter Details Date Type Department Care Team (Late st Contact Info) Description 01/02/2022 Refill Internal Medicine at [address] [address] Reji Adams MD [facility] GENERAL [place] [address] Anxiety Social History Tobacco Use Types Packs/Day [...] AM EDT Office [place] [address] Charline Ziegler MD [facility] [place] [address] documented as of this encounter Visit Diagnoses Diagnosis Anxiety Anxiety state, unspecified documented in this encounter Care Teams Retail Client Manager Relationship Specialty Start Date End Date Reji Adams MD [facility] GENER[place] [address] PCP - General General Internal Medicine 07/13/15 documented as of this encounter
--- OUTSIDE RECORDS SUMMARY | 2024-07-09 11:09 | XMS_ITS | Encounter Summary ---
Author Organization [facility] Address [facility] [place] [address] Care Team Providers Care Envelope Machine Adjuster Name Role Phone Reji Adams MD Primary Care Provider Reason for Visit * Reason Onset Date Comments Medication Refill 08/15/2021 Encounter Details Date Type Department Care Team (Late st Contact Info) Description 08/15/2021 Refill Internal Medicine at [address] [address] Reji Adams MD [facility] GENERAL [place] [address] Anxiety Social History Tobacco Use Types Packs/Day [...] 11:30 AM EDT Office [place] [address] Charline Ziegler MD [facility] [place] [address] documented as of this encounter Visit Diagnoses Diagnosis Anxiety Anxiety state, unspecified documented in this encounter Care Teams Envelope Machine Adjuster Relationship Specialty Start Date End Date Reji Adams MD [facility] GENERAL [place] [address] PCP - General General Internal Medicine 07/13/15 documented as of this encounter
--- OUTSIDE RECORDS SUMMARY | 2024-07-09 11:09 | XMS_ITS | Encounter Summary ---
Author Organization Formerly [facility] Address [facility] [place] [address] Care Team Providers Care Manager Stone Name Role Phone Reji Adams MD Primary Care Provider [phone] Reason for Visit * Reason Comments Other Hip and back pain & causes issues with balance - since late spring (messed up back putting in AC) then it moved into hips - cortisone shots in both hips and made it worse - tried PT but could barely walk after 1st appointment Encounter Details Date Type Department Care Team (Late Contact Info) Description 03/12/2022 2:30 PM EDT Office Visit Internal Medicine at [address] [address] Law Loja MD [facility] [address]-[place] [address] Weakness of both hips; History of spinal fusion; Retrolisthesis Social History Tobacco Use Types Packs/Day Years [...] Reading Time Taken Comments Blood Pressure 107/59 03/12/2022 2:48 PM EDT Pulse 71 03/12/2022 2:48 PM EDT Temperature 36.9 ??C (98.5 ??F) 03/12/2022 2 :48 PM EDT Respiratory Rate - - Oxygen Saturation 100% 03/12/2022 2:4 8 PM EDT Inhaled Oxygen Concentration - - Weight 90 kg (198 lb 6.4 oz) 03/12/2022 2:48 PM EDT with shoes on Height 179.1 cm (5' 10.5) 03/12/2022 2 :48 PM EDT approx - patient reported Body Mass Index 28.07 03/12/2022 2:48 PM EDT documented in this encounter Progress Notes * Law Loja MD - 03/12/2022 2:30 PM EDT Subjective Patient ID: Ken Mckeon is a 76 y.o. male. HPI I want an MRI. Had both hips replaced a few years ago (bilateral) and 'everything was good.' However, this late spring he 'messed up my back putting in an air conditioner and then now it's radiating into my hips.' Called his orthopedist, who believed he had a bursitis in both hips, so had bilateral bursa injections, which didn't help at all. Worked with a physical therapist for 'five minutes' for what he was told might be ischial bursitis,but could barely 'walk out of the place.' Right now he is relying on a cane for ambulation and feels his balance is off. Lifting his right leg (walking upstairs, e.g.) causes pain radiating into the groin and above the right hip. Has a history of spinal stenosis and underwent a fusion 'years ago; I don't even remember.' My legs just don't feel stable. Sitting 'is the most comfortable position'; lying down is uncomfortable and 'standing, I run out ofgas quick.' On chronic low dose prednisone because of his abiraterone use. Also on leuprolide. Review of Systems See HPI Objective Physical Exam NAD, soft-spoken VSS RRR CTAB Mild TTP in the paraspinal lumbar muscle groups, though no gross bony deformity noted 5/5 strength in hip flexion and extension, knee flexion and extension on exam. Decreased sensation to light touch in distal extremities. 2/2 patellar DTRs. Assessment and Plan 76 yo M with history of spinal fusion and prostate cancer here with bilateral hip pain for several months and subjective weakness of hip flexion. Ddx includes PMR, myositis, lumbar radiculopathy (L3-4) - labs - if unremarkable labs, neurosurgery referral (he is established patient at [facility]) documented in this encounter Plan of Treatment Upcoming Encounters Date Type Department Care Team (Late st Contact Info) Description 12/15/2024 11:30 AM EDT Office Visit [place] [address] Charline Ziegler MD [facility] [place] [address] documented as of this encounter Procedures Procedure Name Priority Date/Time Associated Diagnosis Comments HC C-REACTIVE PROTEIN Routine 03/12/2022 3:43 PM EDT Weakness of both hips History of spinal fusion Retrolisthesis HC LYME DISEASE, NOVA Routine 03/12/2022 3:43 PM EDT Weakness of both hips History of spinal fusion Retrolisthesis HC ESR-SEDIMENTATION RATE, BLOOD Routine 03/12/2022 3:43 PM EDT Weakness of both hips History of spinal fusion Retrolisthesis HC CREATINE PHOSPHOKINASE, SERUM Routine 03/12/2022 3:43 PM EDT Weakness of both hips documented in this encounter Results * CK (03/12/2022 3:43 PM EDT) Creatine Kinase 64 0 - 200 unit/L [facility] Blood 03/12/2022 3:43 PM EDT 03/12/2022 7:17 PM EDT Narrative Resulting Agency Comment Spec In Lab Law Loja MD CHEMISTRY ORDERABLE S Performing Organization Address City/[facility]/ZIP Co de Phone Number [facility] [place] [address] * Lyme IgG & IgM Antibody (03/12/2022 3:43 PM EDT) [facility] Lyme Antibody Neg Neg [facility] Blood 03/12/2022 3:43 PM EDT 03/14/2022 6:54 AM EDT Narrative Resulting Agency Comment Spec In Lab Law Loja MD IMMUNOLOGY ORDERABL ES Performing Organization Address [facility]/ZIP Co de Phone Number [facility] [place] [address] * (ABNORMAL) Sedimentation rate (03/12/2022 3:43 PM EDT) [facility] Sedimentation Rate Automated <3(L) 3 - 46 mm/hr [facility] Comment: Effective July 07, 2019 new capillary photometric technology has resulted in a change in reference ranges. It is recommended that each ESR result be reviewed with its own age appropriate reference range. Blood 03/12/2022 3:43 PM EDT 03/12/2022 7:16 PM EDT Narrative Resulting Agency Comment Spec In Lab Law Loja MD HEMATOLOGY ORDERABL ES Performing Organization Address City/[facility]/ZIP Co de Phone Number [facility] [place] [address] * CRP, acute inflammation (03/12/2022 3:43 PM EDT) C-Reactive Protein <3.0 <=4.9 mg/L [facility] Blood 03/12/2022 3:43 PM EDT 03/12/2022 7:17 PM EDT Narrative Resulting Agency Comment Spec In Lab Law Loja MD CHEMISTRY ORDERABLE S Performing Organization Address City/[facility]/ZIP Co de Phone Number [facility] [place] [address] documented in this encounter Visit Diagnoses Diagnosis Weakness of both hips History of spinal fusion Arthrodesis status Retrolisthesis Disorder of bone and cartilage, unspecified documented in this encounter Care Teams Manager Stone Relationship Specialty Start Date End Date Reji Adams MD [facility] [place] [id number] PCP - General General Internal Medicine 07/13/15 documented as of this encounter
--- OUTSIDE RECORDS SUMMARY | 2024-07-09 11:09 | XMS_ITS | Encounter Summary ---
Author Organization Formerly [facility] [place] [address] Care Team Providers Care Special Education Instructor Name Role Phone Reji Adams MD Primary Care Provider [phone] Reason for Visit * Reason Onset Date Comments Medication Refill 07/06/2021 Encounter Details Date Type Department Care Team (Late st Contact Info) Description 07/06/2021 Refill Internal Medicine at [address] [address] Reji Adams MD [facility] [place] [address] Anxiety Social History Tobacco Use Types Packs/Day [...] 11:30 AM EDT Office [place] [address] Charline Ziegler MD [facility] [place] [address] documented as of this encounter Visit Diagnoses Diagnosis Anxiety Anxiety state, unspecified documented in this encounter Care Teams Special Education Instructor Relationship Specialty Start Date End Date Reji Adams MD [facility] [place] [address] PCP - General General Internal Medicine 07/13/15 documented as of this encounter
--- OUTSIDE RECORDS SUMMARY | 2024-07-09 11:09 | XMS_ITS | Encounter Summary ---
Author Organization Formerly [facility] Address [facility] [place] [address] Care Team Providers Care Hairspring Vibrator Name Role Phone Reji Adams MD Primary Care Provider [phone] Reason for Visit * Reason Onset Date Comments Medication Refill 11/15/2021 Encounter Details Date Type Department Care Team (Late st Contact Info) Description 11/15/2021 Refill Internal Medicine at [address] [address] Reji Adams MD [facility] [place] [address] Anxiety Social History Tobacco Use Types Packs/Day [...] 11:30 AM EDT Office Visit [place] [address] Charline Ziegler MD [facility] [place] [address] documented as of this encounter Visit Diagnoses Diagnosis Anxiety Anxiety state, unspecified documented in this encounter Care Teams Hairspring Vibrator Relationship Specialty Start Date End Date Reji Adams MD [facility] [place] [address] PCP - General General Internal Medicine 07/13/15 documented as of this encounter
--- OUTSIDE RECORDS SUMMARY | 2024-07-09 11:09 | XMS_ITS | Encounter Summary ---
Author Organization [facility] Address [facility] [place] [address] Care Team Providers Care Customer Associate Name Role Phone Reji Adams MD Primary Care Provider [phone] Encounter Details Date Type Department Care Team (Late st Contact Info) Description 08/02/2021 Orders Only [place]ology [place] [address] [facility] [place] [address] Social History Tobacco Use Types Packs/Day Years [...] 11:30 AM EDT Office [place] [address] [facility] [place] [address] documented as of this encounter Visit Diagnoses Not on filedocumented in this encounter Care Teams Customer Associate Relationship Specialty Start Date End Date Reji Adams MD [facility] [place] [address] PCP - General General Internal Medicine 07/13/15 documented as of this encounter
--- OUTSIDE RECORDS SUMMARY | 2024-07-09 11:09 | XMS_ITS | Encounter Summary ---
Author Organization [facility] [place] [address] Care Team Providers Care Papier Mache' Molder Name Role Phone Reji Adams MD Primary Care Provider [phone] Reason for Visit * Reason Onset Date Comments Medication Refill 05/09/2021 Encounter Details Date Type Department Care Team (Late st Contact Info) Description 05/09/2021 Refill Internal Medicine at [address] [address] Reji Adams MD [facility] GENER[place] [address] Anxiety Social History Tobacco Use Types Packs/Day [...] 11:30 AM EDT Office [place] [address] Charline Ziegler MD [facility] [place] [address] documented as of this encounter Visit Diagnoses Diagnosis Anxiety Anxiety state, unspecified documented in this encounter Care Teams Papier Mache' Molder Relationship Specialty Start Date End Date Reji Adams MD [facility] GENER[place] [address] PCP - General General Internal Medicine 07/13/15 documented as of this encounter
--- OUTSIDE RECORDS SUMMARY | 2024-07-09 11:09 | XMS_ITS | Encounter Summary ---
Author Organization [facility] Address [facility] [place] [address] Care Team Providers Care Emissions Testing And Repair Technician Name Role Phone Reji Adams MD Primary Care Provider [phone] Encounter Details Date Type Department Care Team (Late st Contact Info) Description 08/20/2021 3:00 PM EST Office Visit Audiology at [address] [address] Sharifa Cash, ZE [facility] [place] [address] Asymmetrical sensorineural hearing loss Social History Tobacco Use Types [...] as of this encounter Progress Notes * Sharifa Cash AUD - 08/20/2021 3:00 PM [place] [address] Ken Mckeon was seen on 08/20/2021 for an audiologic evaluation in conjunction with Savanah Hernandez APRN in ENT. Please refer to the scanned audiogram listed under Procedures for findings, impressionsand recommendations. Ze Gallagher [facility] [address] documented in this encounter Plan of Treatment Upcoming Encounters Date Type Department Care Team (Late st Contact Info) Description 12/15/2024 11:30 AM EDT Office [place] [address] Charline Ziegler MD [facility] [place] [address] documented as of this encounter Procedures Procedure Name Priority Date/Time Associated Diagnosis Comments COMPREHENSIVE HEARING TEST Routine 08/20/2021 2:49 PM EST documented in this encounter Results * Comprehensive hearing test (08/20/2021 2:49 PM EST) 08/20/2021 2:49 PM EST Narrative [facility] - 08/20/2021 2:49 PM EST Follow up with Savanah Hernandez APRN in ENT as scheduled. Procedure Note Unknown - 08/20/2021 Follow up with Savanah Hernandez APRN in ENT as scheduled. 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
--- OUTSIDE RECORDS SUMMARY | 2024-07-09 11:09 | XMS_ITS | Encounter Summary ---
Author Organization [facility] [place] [address] Care Team Providers Care Milk Condenser Name Role Phone Reji Adams MD Primary Care Provider [phone] Reason for Visit * Reason Onset Date Comments Referral 06/12/2021 Encounter Details Date Type Department Care Team (Late st Contact Info) Description 06/12/2021 Telephone Internal Medicine at [address] [address] Reji Adams MD [facility] GENERAL [place] [address] Referral Social History Tobacco Use Types Packs/Day Years [...] Miscellaneous Notes * Telephone Encounter - Layla Lofton RN - 06/12/2021 11:02 AM EST TC geovanny Rogers - [phone] Advised him that the Referral for the TTE was printed and faxed to [facility] at * Telephone Encounter - Ace Collado - 06/12/2021 10:28 AM EST Message: Patient called stating that he is still [facility] that [facility] printed out of his chart and faxed through a manual fax as the [facility] electronic faxing is not working and they need to have it done the old way per patient. [facility] . Patient states that he wants a phone call as soon as this is completed as it should not take this long to have a referral sent to another hospital. Please call patient back when completed Ask caller their first and last name and relationship to the patient: Patient Ken Mckeon Best time to call back: any Ok to leave a message: y Ok to send [facility] message: n Offered Appointment: n MA/Nurse/Cataldo contacted via: Message: y Call: n Pager: n documented in this encounter Plan of Treatment Upcoming Encounters Date Type Department Care Team (Late st Contact Info) Description 12/15/2024 11:30 AM EDT Office [place] [address] Charline Ziegler MD [facility] [place] [address] documented as of this encounter Visit Diagnoses Not on filedocumented in this encounter Care Teams Milk Condenser Relationship Specialty Start Date End Date Reji Adams MD [facility] GENER[place] [address] PCP - General General Internal Medicine 07/13/15 documented as of this encounter
--- OUTSIDE RECORDS SUMMARY | 2024-07-09 11:09 | XMS_ITS | Encounter Summary ---
Author Organization [facility] Address [facility] [place] [address] Care Team Providers Care Grants Administrator Name Role Phone Reji Adams MD Primary Care Provider [phone] Reason for Visit * Reason Onset Date Comments Referral 09/21/2021 Encounter Details Date Type Department Care Team (Late st Contact Info) Description 09/21/2021 Telephone Internal Medicine at [address] [address] Reji Adams MD [facility] [place] [address] Referral Social History Tobacco Use Types Packs/Day [...] encounter Miscellaneous Notes * Telephone Encounter - Guy Trinidad - 09/21/2021 4:29 PM EST Patient is requesting a referral for what kind of services/treatment: Physical Therapy Reason for this referral request: Back pain Specific office or provider: Address/Phone/Fax: Has the patient been seen for this symptom: yes Who: Qian Power When: 11.15 If patient has not been seen and declines appointment please note reason Caller and Relationship (if other than patient): Ken Mejíaff Best time to call back: anytime in the afternoon Ok to leave a message: yes Ok to send [facility] message: documented in this encounter Plan of Treatment Upcoming Encounters Date Type Department Care Team (Late st Contact Info) Description 12/15/2024 11:30 AM EDT Office Visit [place] [address] Charline Ziegler MD [facility] [place] [address] documented as of this encounter Visit Diagnoses Not on filedocumented in this encounter Care Teams Grants Administrator Relationship Specialty Start Date End Date Reji Adams MD [facility] [place] [address] PCP - General General Internal Medicine 07/13/15 documented as of this encounter
--- OUTSIDE RECORDS SUMMARY | 2024-07-09 11:09 | XMS_ITS | Encounter Summary ---
Author Organization [facility] Address [facility] [place] [address] Care Team Providers Care Encoding Clerk Name Role Phone Reji Adams MD Primary Care Provider [phone] Reason for Visit * Reason Onset Date Comments Results 05/31/2021 Encounter Details Date Type Department Care Team (Late st Contact Info) Description 05/31/2021 Telephone Internal Medicine at [address] [address] Law Sanchez MD [facility] GENERAL [place] [address] Results Social History Tobacco Use Types Packs/Day [...] encounter Miscellaneous Notes * Telephone Encounter - Law Sanchez MD - 05/31/2021 8:52 AM EDT Called patient to discuss lab results. Noted that they were mostly within normal limits, except forthe proBNP which was mildly elevated. Discussed that this could be a sign of slight stress on the heart. As such, will place an order for an echocardiogram to assess heart function. documented in this encounter Plan of Treatment Upcoming Encounters Date Type Department Care Team (Late st Contact Info) Description 12/15/2024 11:30 AM EDT Office [place] [address] Charline Ziegler MD [facility] [place] [address] documented as of this encounter Visit Diagnoses Diagnosis Fatigue, unspecified type Shortness of breath documented in this encounter Care Teams Encoding Clerk Relationship Specialty Start Date End Date Reji Adams MD [facility] GENER[facility] [place] [address] PCP - General General Internal Medicine 07/13/15 documented as of this encounter
--- OUTSIDE RECORDS SUMMARY | 2024-07-09 11:09 | XMS_ITS | Encounter Summary ---
Author Organization [facility] Address [facility] [place] [address] Care Team Providers Care Associate Professor Name Role Phone Reji Adams MD Primary Care Provider [phone] Reason for Visit * Reason Onset Date Comments Medication Refill 02/09/2022 Encounter Details Date Type Department Care Team (Late st Contact Info) Description 02/09/2022 Refill Internal Medicine at [address] [address] Reji Adams MD [facility] GENERAL [place] [address] Anxiety Social History Tobacco Use Types Packs/Day [...] 11:30 AM EDT Office [place] [address] Charline Ziegler MD [facility] [place] [address] documented as of this encounter Visit Diagnoses Diagnosis Anxiety Anxiety state, unspecified documented in this encounter Care Teams Associate Professor Relationship Specialty Start Date End Date Reji Adams MD [facility] GENER[facility] [place] [address] PCP - General General Internal Medicine 07/13/15 documented as of this encounter
--- OUTSIDE RECORDS SUMMARY | 2024-07-09 11:09 | XMS_ITS | Encounter Summary ---
Author Organization [facility] Address [facility] [place] [address] Care Team Providers Care Cardiac Sonographer Name Role Phone Reji Adams MD Primary Care Provider [phone] Reason for Visit * Reason Comments Follow-up Encounter Details Date Type Department Care Team (Late st Contact Info) Description 07/31/2021 10:00 AM EST Office [place] [phone] Rayo Davis MD Malignant neoplasm of prostate; adjunct faculty for medical terminology (current) use of other agents affecting estrogen receptors and estrogen levels Social History Tobacco Use Types Packs/Day Years [...] Sign Reading Time Taken Comments Blood Pressure 130/77 07/31/2021 10:27 AM EST Pulse 73 07/31/2021 10:27 AM EST Temperature 36.4 ??C (97.5 ??F) 07/31/2021 10:[address] Respiratory Rate 18 07/31/2021 10:27 AM EST Oxygen Saturation 99% 07/31/2021 10:27 AM EST Inhaled Oxygen Concentration - - Weight 86.6 kg (191 lb) 07/31/2021 10:27 AM EST Height - - Body Mass Index 26.24 07/26/2021 1:02 PM EST documented in this encounter Progress Notes * Myra Coyle, RN - 07/31/2021 10:00 AM EST RADIATION ONCOLOGY NURSING INITIAL NURSING ASSESSMENT IDENTIFICATION: Ken Mckeon is a 75 y.o. year-old male with recurrent Prostate cancer PRESENTING SYMPTOMS/CHIEF COMPLAINT: REVIEW OF SYSTEMS: Review of Systems Constitutional: Positive for unexpected weight change. HENT: Positive for hearing loss. Eyes: Negative. Respiratory: Negative. Cardiovascular: Negative. Gastrointestinal: Positive for constipation (occasionally). Endocrine: Negative. Genitourinary: Positive for nocturia (x1). Musculoskeletal: Positive for arthralgias (Right elbow pain) and back pain (chronic mid pain). Skin: Negative. Neurological: Positive for numbness (right arm numbness d/t spinal cord injury approximately 2016/2016). Hematological: Bruises/bleeds easily (Takes Baby ASA daily). Psychiatric/Behavioral: The patient is nervous/anxious. IN THE PAST 12 MONTHS HAVE YOU: Fallen more than one time? No Injured yourself as result of the fall? No Experienced difficulty with walking/problems with balance? No Do you use any assistive devices? No Any history of collagen vascular diseases:No Any Implanted Devices/Hardware: Yes. Bilateral hip replacements. Neck fusion If yes please put alert in ARIA patient summary Prior Radiotherapy: No Prior Chemotherapy: No Prior Hormone Therapy: No LEARNING ASSESSMENT REVIEWED: Yes ADVANCED DIRECTIVE: Yes PAIN ASSESSMENT: [0] out of 10 *eD-H Adult PCS Flow Sheet if 4 or above SOCIAL ASSESSMENT: See EDH social assessment information entered. Support Systems: Partner Xena Amador Barriers to treatment: None Referrals/Interventions: None today RADIATION SPECIFIC TEACHING: [facility] Radiation Therapy and You Site specific teaching : Other: PLAN: Will discuss treatment plan with Dr. Magana today * Rayo Davis MD - 07/31/2021 10:00 AM EST Identification Ken Mckeon is a 75 y.o. gentleman with prostate cancer, who first presented to me in February 2019. He is referred back at the request of Cesar Tipton MD (radiation oncology, [facility]) for considerationof the role of radiation therapy in his further management. Problem List Patient Active Problem List Diagnosis Code ??? 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 Cataract extraction status of left eye Z98.42 ??? OA (osteoarthritis) of knee M17.10 ??? 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 Anxiety F41.9 ??? Neck pain M54.2 [...] Z98.890 ??? Malignant neoplasm of prostate C61 History of Present Illness When I met Mr. Mckeon in 2019, he presented with prostate cancer, GS 4+4=8/10 in MRI defined lesion in right lobe, all 12 standard biopsies negative, Stage [id number], PSA 8.11, AJCC stage grouping IIC (8th ed.). Subsequently, the patient elected to proceed with prostatectomy, which was performed under the careof Dr. Rocha at [facility] on 05/18/19. Pathology 05/18/19 (as reviewed by [facility] pathology, 11/24/20): DIAGNOSIS CONSULTATION CASE Outside slide(s) labeled [id number], collection date 05/18/2019. A) Soft tissue, left [...] adenocarcinoma ?Histologic Grade ? Grade Group and [place] Score: ??Grade group 5 ([place] Score 4 + 5 = 9) ? [...] (pT): ??pT2 ?Regional Lymph Nodes (pN): ??pN0 Although tumor was high-grade, there was no identified PARRISH or SV involvement, and margins were negative. Observation was elected. Following RALP, PSA dropped to undetectable, but then started rising in fall of 2019... Recent PSA history: 06/23/2019 0.02 10/06/2019 <0.01 01/03/2020 <0.01 04/20/2020 0.02 08/29/2020 0.05 11/03/2020 0.09 01/08/2021 0.14 02/07/2021 0.172 05/07/2021 0.253 Calculated doubling time (04/20/2020 through 05/07/2021) -- 3 months. In November 2020 the patient presented to [facility] ED with worsening back pain. Urgent work-up included CTA.Subsequently, MRI scans of the spine and abdomen were performed. CTA of C/A/P 11/30/20: IMPRESSION ??1. No aortic dissection. 2. No acute cardiopulmonary or intra-abdominal pathology. 3. A 1.4 cm soft tissue density lesion in the interpolar cortex of the right kidney (series 13 image 105, series 10 image 121). This lesion is only visualized on the arterial phase and is beyond the [id number]-eork on noncontrast images. Follow-up renal sonogram versus renal MRI with and without contrast is recommended. UNEXPECTED FINDING. MRI of total spine 12/08/20: No osseous metastatic disease. MRI of Abdomen w/wo contrast 12/14/20:\ COMPARISON: Correlation is made to CT chest, abdomen and pelvis dated 11/30/2020 ?? FINDINGS: [employer] Images: Not provided. ?? Right Kidney/ureter: 1.6 cm cystic lesion within the interpolar cortex demonstrating homogenous T2 hyperintense/T1 hypointense signal intensity. No enhancing components. There is suggestion of a few faint internal septations. Additional smaller T2 hyperintense/T1 hypointense nonenhancing cysts are present. No hydronephrosis. ?? Left Kidney/ureter: Subcentimeter T2 hyperintense/T1 hypointense nonenhancing simple cysts are present. No hydronephrosis. ?? Lower chest: Normal. ?? Liver: Normal size and signal intensity. Numerous subcentimeter T2 hyperintense/T1 hypointense tense, nonenhancing cysts are present. ?? Bile ducts: Nondilated. ?? Gallbladder: No gallstones. Normal caliber wall. ?? 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 Normal caliber pancreatic duct. ?? Spleen: Normal. ?? Adrenals: Normal. ?? Vasculature: No aneurysm. ?? Lymph nodes: No enlarged lymph nodes. ?? Bowel: Nondilated, no inflammatory changes. ?? Peritoneum and mesentery: No ascites or loculated fluid collection. ?? Marrow Signal: Normal. ?? IMPRESSION Right renal lesion in question corresponds to a Bosniak II right renal cyst requiring no additional imaging follow-up. Due to the worsening PSA elevation, in the summer of 2020 Mr. Mckeon was evaluated by Dr. White (radiation oncology, [place], [place]) and also Pia Stout APRN ([place] [facility]) and referred for PSMA-PET baltazar performed in [place] (due to availability). On 06/07/21, the patient was seen by Dr. Tipton ([facility] rad onc) and by Dr. Sary Desai ([facility] med onc). PSMA-PET was arranged, with treatment recommendations to be contingent on the results of the PET. The PSMA-PET was performed 06/29/21 in [place]. PSMA-PET, 06/29/21 ([facility] reading): 1. Mildly avid bilateral subcentimeter external iliac lymph nodes and suggestion of larger avid right external iliac lymph node, difficult to visualize on this non-contrast enhanced CT portion of thestudy, as above, concerning for metastases. 2. Mildly avid focus in the right posterior region of L2 vertebral body/pedicle without CT correlate that nonetheless raises concern for a metastatic deposit. Dr. Tipton called the patient to discuss the PSMA-PET findings. MRI of the spine was recommended (to further evaluate the positive finding at L2), as well as pelvic RT (w/wo SBRT to spine based on MRI results). Intensification of the ADT regimen was suggested as well. MRI of L-spine 07/12/21 (follow-up to PSMA finding): IMPRESSION No evidence of osseous metastasis in the lumbar spine. Mild lumbar spondylosis as above, similar toprior exam. Following the MRI, per the patient he has been in communication with Dr. Desai, who suggested an aggressive ADT treatment course including two-years of abiraterone-based therapy. On 07/26/[address] with [address]. Louise (med onc, [facility]). Alternative ADT regimens were discussed, including longer-term standard ADT versus longer-term intensification with abiraterone. At present Mr. Mckeon favors an aggressive approach, but he is exploring payment alternatives for theabiraterone treatments. ROS Nocturia 1-2 times per night. Good control during the day. Not wearing pads. Denies burning or hematuria. Bowel movements are typically 5-6 times a week, tending towards constipation, no diarrhea or blood LA. Erections are currently nonfunctional. Review of Systems otherwise unremarkable. Please see Nurse's Note for details. Prior history of radiation therapy: none Current Outpatient Medications on File Prior to [...] facility-administered medications on file prior to visit. Allergies Allergen Reactions ??? Penicillins Anaphylaxis Tongue swelling ??? Betamethasone hiccups after injection ??? Dexamethasone Hiccups after injection Past Medical History: Diagnosis Date ??? BPH (benign prostatic hyperplasia) ??? Neck pain 08/24/2012 ??? OA (osteoarthritis) of knee right . Past Surgical History: Procedure Laterality Date ??? CREATED BY INTERFACE Past surg hx. Procedure Date: 09/19/2010 ??? PRO COLONOSCOPY, DIAGNOSTIC 09/07/2013 COLONOSCOPY, DIAGNOSTIC performed by Ximena Gu MD at [facility] ENDOSCOPY ??? PRO COLONOSCOPY, REMV LESN, SNARE N/A 01/25/2020 COLONOSCOPY, POLYPECTOMY, REMOVAL LESION BY SNARE (WRVU 4.67) performed by Michelle Camarillo MDat [facility] ENDOSCOPY ??? PRO ENDOSCOPIC US EXAM, ESOPH N/A 03/14/2020 UPPER EUS- ENDOSCOPIC ULTRASOUND performed by Festus Carballo MD at [facility] ENDOSCOPY ??? PRO LIGATE/STRIP LONG SAPH VEIN BELW SEP-FEM JUNC 06/02/2012 LIGATION\DIV\STRIP GREATER SAPHENOUS VEIN performed by BEATRICE RODRÍGUEZ at [facility] MAIN OR ??? PRO PHLEB VEINS - EXTREM - TO 20 06/02/2012 STAB PHLEBECTOMY KARLI VEINS, EXTREMITY 10-20 INCISIONS-SANTI performed by BEATRICE RODRÍGUEZ at [facility] MAIN OR ??? PRO UPPER GI ENDOSCOPY, BIOPSY N/A 09/02/2017 EGD WITH BIOPSY (WRVU 2.49) performed by Rahul Escobar MD at [facility] ENDOSCOPY ??? PRO UPPER GI ENDOSCOPY, BIOPSY N/A 01/25/2020 EGD WITH BIOPSY (WRVU 2.49) performed by Michelle Camarillo MD at [facility] ENDOSCOPY ??? PRO UPPER GI ENDOSCOPY, BIOPSY N/A 03/14/2020 EGD WITH BIOPSY (WRVU 2.49) performed by Festus Carballo MD at [facility] ENDOSCOPY ??? US GUIDED BIOPSY PROSTATE ([place] ONLY) 02/08/2019 US Guided Transrectal Biopsy 02/08/2019 [facility] RAD ULTRASOUND Family History Problem Relation Age of Onset [...] Housing in the Last Year: Patient refused Physical Exam BP 130/77 (Patient Position: Sitting) Pulse 73 Temp 36.4 ??C (97.5 ??F) (Tympanic) Resp 18 Wt 86.6 kg (191 lb) SpO2 99% BMI 26.24 kg/m?? KPS: 90 Sclera anicteric. No adenopathy in cervical, supraclavicular, or inguinal regions. Lungs clear in all lal. No back or costo-vertebral angle tenderness. CV with regular rate and rhythm. Abdomen soft, nontender, positive bowels sounds, no hepatosplenomegaly. No suprapubic tenderness. External genitalia unremarkable. No pretibial edema. Rectal with normal tone, guiac negative stool, no masses. Empty prostatic fossa. Investigations As above. Assessment/Plan Mr. Mckeon presents with recurrent prostate cancer, Grade Group 5, PSA up to 0.253 ng/ml, calculated DT of 3 months, with likely regional metastases in right and left iliac chains. PSMA-PET also showeduptake at right L2 VB/pedicle, though without correlates on CT or MRI. We counseled Mr. Mckeon to undergo treatment with ADT and EBRT, with treatment lal to include the prostate bed and draining lymphatics, to be sure to include the avid sites seen on PSMA-PET. Regarding the question of disease at L2, we will request the PSMA-PET/CT images for review, for us to compare directly against the 07/12/21 MRI. We will discuss these at [facility] Board. If clinical suspicion is low that this site harbors metastatic cancer, then will forego treatment of the site. Ifsuspicion is high, then would treat this oligometastasis with SBRT (in concordance with Dr. Tipton's preliminary recommendation from 07/02/21). Regarding ADT, Mr. Mckeon and I spent some time reviewing the question of length of ADT as well as use of abiraterone. Generally, we favor the combination of 4-6 months of ADT with salvage EBRT; however, with evidence for jose spread, it is very reasonable to treat for a longer course (2-years). Whether to implement abiraterone at this stage is a question better left to consultation between the patient and his medical oncology team. Whether or not abiraterone is employed, we would favor proceeding with EBRT, after 2-3 months of hormone therapy (failry standard timing). I offered to provide Mr. Mckeon a Lupron injection today, as well as to start him on daily 50 mg bicalutamide -- as he is anxious to begin therapy and ADT is a very reasonable first step in his treatment course. (If he elects to proceed with abiraterone, it would be easy enough to continue the Lupron, while dropping the bicalutamide and starting abiraterone.) However, Mr. Mckeon did not want to implement any therapies at this moment, as he still has not come to a conclusion whether he will initiateabiraterone therapy, and meanwhile he wishes to delay implementation of salvage therapies. In any event, we will arrange an MRI of the pelvis in short-order, which will provide further information whether there is detectable soft-tissue abnormalities in the pelvis (possibly below resolution of the PSMA-PET). We will order a DEXA-scan, to assure adequate bone density, as it may be anticipated the patient will be on ADT for a longer period of time. He was also advised to take calcium and Vitamin D while onADT. We will obtain the PSMA-PET images, which will help further decision-making regarding management ofpelvic and spine abnormalities. Mr. Mckeon will contact us if any issues arise, and specifically if he wishes to initiate ADT. (If hedoes, we would first run routine blood work to establish baselines at time prior to ADT, including LFTs, counts, and blood sugar, not to mention current PSA and testosterone). Ken Mckeon was seen for a total of 60 minutes, with 55 minutes of that time spent in discussionwith the patient regarding his current clinical condition, test results, and further management. documented in this encounter Plan of Treatment Upcoming Encounters Date Type Department Care Team (Late st Contact Info) Description 12/15/2024 11:30 AM EDT Office [place] [address] Charline Ziegler MD [facility] [place] [address] documented as of this encounter Visit Diagnoses Diagnosis Malignant neoplasm of prostate halfway (current) use of other agents affecting estrogen receptors and estrogen levels documented in this encounter Care Teams Cardiac Sonographer Relationship Specialty Start Date End Date Reji Adams MD [facility] GENER[place] [address] PCP - General General Internal Medicine 07/13/15 documented as of this encounter
--- OUTSIDE RECORDS SUMMARY | 2024-07-09 11:09 | XMS_ITS | Encounter Summary ---
Author Organization [facility] Address [facility] [place] [address] Care Team Providers Care Electric Powerline Examiner Name Role Phone Reji Adams MD Primary Care Provider [phone] Reason for Visit * Reason Onset Date Comments Medication Refill 04/19/2022 Encounter Details Date Type Department Care Team (Late st Contact Info) Description 04/19/2022 Refill Internal Medicine at [address] [address] Reji Adams MD [facility] [place] [address] Anxiety Social History Tobacco Use Types Packs/Day [...] 11:30 AM EDT Office [place] [address] Charline Ziegler MD [facility] [place] [address] documented as of this encounter Visit Diagnoses Diagnosis Anxiety Anxiety state, unspecified documented in this encounter Care Teams Electric Powerline Examiner Relationship Specialty Start Date End Date Reji Adams MD [facility] [place] [address] PCP - General General Internal Medicine 07/13/15 documented as of this encounter
--- OUTSIDE RECORDS SUMMARY | 2024-07-09 11:10 | XMS_ITS | Encounter Summary ---
Author Organization [facility] Address [facility] [place] [address] Care Team Providers Care Supervisor Dry Paste Name Role Phone Reji Adams MD Primary Care Provider [phone] Encounter Details Date Type Department Care Team (Latest Contact Info) Description 09/15/2020 Transcribe [place] [address] Rigo Rocha MD [address] [place] [address] S/P prostatectomy (Primary Dx) Social History Tobacco Use Types [...] 11:30 AM EDT Office Visit [place] [address] Charline Ziegler MD [facility] [address] GASTROENTEROLOGY [place], [place] [address] documented as of this encounter Visit Diagnoses Diagnosis S/P prostatectomy- Primary Other postprocedural status documented in this encounter Care Teams Supervisor Dry Paste Relationship Specialty Start Date End Date Reji Adams MD [facility] [place] [address] PCP - General General Internal Medicine 07/13/15 documented as of this encounter
--- OUTSIDE RECORDS SUMMARY | 2024-07-09 11:10 | XMS_ITS | Encounter Summary ---
Author Organization [facility] Address [facility] [place] [address] Care Team Providers Care Dental Hygiene Instructor Name Role Phone Reji Adams MD Primary Care Provider [phone] Encounter Details Date Type Department Care Team (Late st Contact Info) Description 12/05/2020 [place] [address] Rodrigo Sharma MD [facility] DIAGNOSTIC [place] [address] Social History Tobacco Use Types Packs/Day Years [...] 11:30 AM EDT Office [place] [address] Charline Ziegler MD [facility] DR GASTROENTEROLOGY [place], [place] [phone] documented as of this encounter Visit Diagnoses Not on filedocumented in this encounter Care Teams Dental Hygiene Instructor Relationship Specialty Start Date End Date Reji Adams MD [facility] GENERAL [place] [address] PCP - General General Internal Medicine 07/13/15 documented as of this encounter
--- OUTSIDE RECORDS SUMMARY | 2024-07-09 11:10 | XMS_ITS | Encounter Summary ---
Author Organization [facility] [place] [address] Care Team Providers Care Certified First Assistant Name Role Phone Reji Adams MD Primary Care Provider [phone] Reason for Visit * Reason Onset Date Comments Medication Refill 09/26/2020 Encounter Details Date Type Department Care Team (Late st Contact Info) Description 09/26/2020 Refill Internal Medicine at [address] [address] Reji Adams MD [facility] GENERAL [place] [address] Anxiety Social History Tobacco Use Types Packs/Day [...] 11:30 AM EDT Office Visit [place] [address] Charline Ziegler MD [facility] [place] [address] documented as of this encounter Visit Diagnoses Diagnosis Anxiety Anxiety state, unspecified documented in this encounter Care Teams Certified First Assistant Relationship Specialty Start Date End Date Reji Adams MD [facility] GENERAL [place] [address] PCP - General General Internal Medicine 07/13/15 documented as of this encounter
--- OUTSIDE RECORDS SUMMARY | 2024-07-09 11:10 | XMS_ITS | Encounter Summary ---
Author Organization [facility] [place] [address] Care Team Providers Care Manager Performance Improvement Name Role Phone Reji Adams MD Primary Care Provider [phone] Encounter Details Date Type Department Care Team (Late st Contact Info) Description 11/30/2020 Telephone Internal Medicine at [address] [address] Dafne Hickey, RN Social History Tobacco Use [...] Telephone Encounter - Dafne Hickey RN - 11/30/2020 8:38 AM EDT Message from Dr. Adams: Pt needs an MRI abd for renal lesion. Pt knows about lesion but can we call him to make sure he is okay with getting MRI? Thanks Phoned patient, he is in agreement, stated Dr. Davis was going to order an MRI of his pelvic area documented in this encounter Plan of Treatment Upcoming Encounters Date Type Department Care Team (Late st Contact Info) Description 12/15/2024 11:30 AM EDT Office [place] [address] Charline Ziegler MD [facility] [place] [address] documented as of this encounter Visit Diagnoses Diagnosis Renal lesion Unspecified disorder of kidney and ureter documented in this encounter Care Teams Manager Performance Improvement Relationship Specialty Start Date End Date Reji Adams MD [facility] [place] [address] PCP - General General Internal Medicine 07/13/15 documented as of this encounter
--- OUTSIDE RECORDS SUMMARY | 2024-07-09 11:10 | XMS_ITS | Encounter Summary ---
Author Organization [facility] Address [facility] [place] [address] Care Team Providers Care Substance Addiction Coordinator Name Role Phone Reji Adams MD Primary Care Provider [phone] Encounter Details Date Type Department Care Team (Latest Contact Info) Description 01/08/2021 11:20 AM EDT Laboratory Appointment Lab at [address] [phone] Malignant neoplasm of prostate Social History Tobacco [...] 11:30 AM EDT Office [place] [address] Charline Ziegler MD [facility] [place] [address] documented as of this encounter Procedures Procedure Name Priority Date/Time Associated Diagnosis Comments HEMOGRAM Routine 01/08/2021 11:29 AM EDT Malignant neoplasm of prostate DIFFERENTIAL, AUTOMATED Routine 01/08/2021 11:29 AM EDT Malignant neoplasm of prostate HC CBC,PLT & AUTO DIFF Routine 11:29 AM EDT Malignant neoplasm of prostate HC VENIPUNCTURE Routine 01/08/2021 11:29 AM EDT Malignant neoplasm of prostate HC PROSTATE SPECIFIC ANTIGEN Routine 01/08/2021 11:29 AM EDT Malignant neoplasm of prostate COMPREHENSIVE METABOLIC PANEL Routine 01/08/2021 11:29 AM EDT Malignant neoplasm of prostate documented in this encounter Results * Differential, Automated (01/08/2021 11:29 AM EDT) Neutrophil % 50.2 % [facility] Neutrophil Absolute 3.68 1.70 - 6.10 x10(3)/[facility] Lymph % 40.5 % [facility] Lymphocytes Abs 3.0 0.9 - 3.2 x10(3)/[facility] Monocyte % 6.5 % [facility] Monocyte Abs 0.5 0.3 - 0.9 x10(3)/[facility] Eos % 2.0 % [facility] Eosinophils Abs 0.2 0.0 - 0.4 x10(3)/[facility] Basophil % 0.7 % [facility] Baso Absolute 0.0 0.0 - 0.1 x10(3)/[facility] Immature Gran % 0.10 % [facility] Comment: Immature granulocytes(IG's)percentage and absolute count will include metamyelocytes, myelocytes, and promyelocytes. Blood smears from CBCs yielding IG's will be scanned manually for concordance. If this scan disagrees with the automated IG or if promyelocytes are noted, a manual differential will be performed. Immature Gran Absolute 0.01 0.00 - 0.04 x10(3)/mcL [facility] Blood 01/08/2021 11:2 9 AM EDT 01/08/2021 1:35 PM EDT Narrative Resulting Agency Comment Spec In Lab Rayo Davis MD HEMATOLOGY ORDERABLE S [facility] [place] [address] * (ABNORMAL) Hemogram (01/08/2021 11:29 AM EDT) White Blood Cell 7.3 4.0 - 9.5 x10(3)/mc L [facility] Red Blood Cell 5.02 4.58 - 5.54 x10(6)/mc L [facility] Hemoglobin 15.2 13.7 - 16.5 gm/dL [facility] Hematocrit 45.6 40.5 - 48.5 % [facility] Mean Cell Volume 90.8 82.9 - 93.1 fL [facility] Mean Cell Hemoglobin 30.3 27.5 - 32.1 pg [facility] Mean Cell Hemoglobin Concentration 33.3 32.0 - 35.7 gm/dL [facility] Platelet 193 145 - 357 x10(3)/mc L [facility] RDW Standard Deviation 46.1(H) 36.0 - 45.0 [facility] RDW coefficient of variation 13.7 11.4 - 13.8 % [facility] Mean Platelet Volume 9.4 7.6 - 12.9 [facility] NRBC% auto 0.0 % [facility] NRBC Absolute 0.000 0.000 - 0.000 x10(3)/mc L [facility] Blood 01/08/2021 11:2 9 AM EDT 01/08/2021 1:35 PM EDT Narrative Resulting Agency Comment Spec In Lab Rayo Davis MD HEMATOLOGY ORDERABLE S [facility] [place] [address] * Comprehensive metabolic panel (non-fasting) (01/08/2021 11:29 AM EDT) Glucose 92 65 - 199 mg/dL [facility] Comment:Diabetes: >=200 mg/d L plus symptoms Blood Urea Nitrogen 14 10 - 20 mg/dL [facility] Creatinine 1.02 0.80 - 1.50 mg/dL [facility] Sodium 140 135 - 145 mmol/L [facility] Potassium 4.5 3.5 - 5.0 mmol/L [facility] Comment: Please note: ??Patients with WBC >100,000 may have falsely elevated Potassium levels. ??For accurate Potassium quantification in these patients send serum separator tube (gold top) for subsequent determinations. ??Contact the Clinical Chemistry Laboratory if there are any questions. Chloride 104 98 - 107 mmol/L [facility] Carbon Dioxide 29 22 - 31 mmol/L [facility] Anion Gap 7 5 - 15 mmol/L [facility] Calcium 9.6 8.5 - 10.5 mg/dL [facility] Protein, Total 7.0 6.1 - 8.0 gm/dL [facility] Albumin 4.6 3.2 - 5.2 gm/dL [facility] Aspartate Aminotransferase 21 0 - 39 unit/L [facility] Alanine Aminotransferase 15 0 - 55 unit/L [facility] Alkaline Phosphatase 64 40 - 130 unit/L [facility] Bilirubin, Total 1.0 0.2 - 1.3 mg/dL [facility] Est Glomerular Filtration Rate 72 >=60 mL/min/1. 73 m?? [facility] Comment: This patient? s estimated glomerular filtration rate (eGFR) is between 72 mL/min/1.73 m2 (patients with less muscle mass per kg body weight) and 84 mL/min/1.73 m2 (patients with more muscle mass [...] and symptoms in addition to eGFR. Blood 01/08/2021 11:2 9 AM EDT 01/08/2021 1:19 PM EDT Narrative Resulting Agency Comment Spec In Lab Raoy Davis MD CHEMISTRY ORDERABLES Performing Organization Address [facility] Co de Phone Number [facility] [place] [address] * PSA (Ultrasensitive) (01/08/2021 11:29 AM EDT) Prostate Specific Antigen (Ultrasensitive ) 0.14 0.00 - 4.00 ng/mL [facility] Comment: PLEASE NOTE: The above reference interval is intended for healthy males with an intact prostate. Values within this reference interval may indicate recurrence in men who have undergone radical prostatectomy. Blood 01/08/2021 11:2 9 AM EDT 01/08/2021 1:19 PM EDT Narrative Resulting Agency Comment Spec In Lab Rayo Davis MD CHEMISTRY ORDERABLES Performing Organization Address [facility] Co de Phone Number [facility] [place] [address] * Testosterone, total (01/08/2021 11:29 AM EDT) Testosterone 6.52 1.93 - 7.40 ng/mL [facility] Comment: Pediatric Reference Ranges: [...] from review of Tung Johanna Testosterone II 03/2016, v6.0 Blood 01/08/2021 11:2 9 AM EDT 01/08/2021 1:18 PM EDT Narrative Resulting Agency Comment Spec In Lab Rayo Davis MD CHEMISTRY ORDERABLES Performing Organization Address City/State/[facility] Co de Phone Number [facility] [place] [address] documented in this encounter Visit Diagnoses Diagnosis Malignant neoplasm of prostate documented in this encounter Care Teams Substance Addiction Coordinator Relationship Specialty Start Date End Date Reji Adams MD [facility] GENERAL [place] [address] PCP - General General Internal Medicine 07/13/15 documented as of this encounter
--- OUTSIDE RECORDS SUMMARY | 2024-07-09 11:10 | XMS_ITS | Encounter Summary ---
Author Organization [facility] [place] [address] Care Team Providers Care Oriental Rug Repairer Name Role Phone Reji Adams MD Primary Care Provider [phone] Encounter Details Date Type Department Care Team (Latest Contact Info) Description 10/16/2020 10:45 AM EDT Laboratory Appointment Lab [address] [place] [phone] Acute low back pain, unspecified back pain laterality, unspecified whether sciatica present Social History Tobacco Use Types Packs/Day Years [...] 11:30 AM EDT Office [place] [phone] Charline Ziegler MD [facility] [place] [address] documented as of this encounter Procedures Procedure Name Priority Date/Time Associated Diagnosis Comments HC VENIPUNCTURE Routine 10/16/2020 10:41 AM EDT Acute low back pain, unspecified back pain laterality, unspecified whether sciatica present documented in this encounter Results * Basic Metabolic Panel (non-fasting) (10/16/2020 10:41 AM EDT) Glucose 91 65 - 199 mg/dL [facility] Comment:Diabetes: >=200 mg/d L plus symptoms Blood Urea Nitrogen 18 10 - 20 mg/dL [facility] Creatinine 1.01 0.80 - 1.50 mg/dL [facility] Sodium 140 135 - 145 mmol/L [facility] Potassium 4.4 3.5 - 5.0 mmol/L [facility] Comment: Please note: ??Patients with WBC >100,000 may have falsely elevated Potassium levels. ??For accurate Potassium quantification in these patients send serum separator tube (gold top) for subsequent determinations. ??Contact the Clinical Chemistry Laboratory if there are any questions. Chloride 105 98 - 107 mmol/L [facility] Carbon Dioxide 30 22 - 31 mmol/L [facility] Anion Gap 5 5 - 15 mmol/L [facility] Calcium 9.3 8.5 - 10.5 mg/dL [facility] Est Glomerular Filtration Rate 73 >=60 mL/min/1. 73 m?? [facility] Comment: This patient? s estimated glomerular filtration rate (eGFR) is between 73 mL/min/1.73 m2 (patients with less muscle mass per kg body weight) and 85 mL/min/1.73 m2 (patients with more muscle mass [...] and symptoms in addition to eGFR. Blood specimen (specimen) 10/16/2020 10:41 AM EDT 10/16/2020 10:47 AM EDT Narrative Resulting Agency Comment Spec In Lab Reji Adams MD CHEMISTRY ORDERABLES Performing Organization Address City/State/[facility] Co de Phone Number [facility] [place] [address] documented in this encounter Visit Diagnoses Diagnosis Acute low back pain, unspecified back pain laterality, unspecified whether sciatica present documented in this encounter Care Teams Oriental Rug Repairer Relationship Specialty Start Date End Date Reji Adams MD [facility] [place] [address] PCP - General General Internal Medicine 07/13/15 documented as of this encounter
--- OUTSIDE RECORDS SUMMARY | 2024-07-09 11:10 | XMS_ITS | Encounter Summary ---
Author Organization [facility] Address [facility] [place] [address] Care Team Providers Care Concrete Inspector Name Role Phone Reji Adams MD Primary Care Provider [phone] Reason for Visit * Reason Comments Otalgia Both ears are sore w ith pain coming going Encounter Details Date Type Department Care Team (Late st Contact Info) Description 08/29/2020 2:00 PM EST Office Visit [place] [address] Savanah Hernandez APRN [facility] [place] [address] Otalgia of both ears Social History Tobacco Use Types Packs/Day Years [...] - - Weight 83.9 kg (185 lb) 08/29/2020 2:01 PM EST Height 177.8 cm (5' 10) 08/29/2020 2:01 PM EST Body Mass Index 26.54 08/29/2020 2:01 PM EST documented in this encounter Progress Notes * David Savanah Javi, [employer] DEPARTMENT HEAD - 08/29/2020 2:00 PM EST Date of Visit:08/29/2020 Location of Visit: Otolaryngology Clinic, [facility] Patient: Ken Mckeon 1945, [id number] Chief Complaint: Ken is a 74 year old with c/o otalgia and 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 He has been evaluated by for this in the past. Interval History: Ken is a 74 year old with the above history here for an evaluation of his ears. 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 NO change in hearing now. An MRI was done of his brain with contrast and it showed no acoustic neuroma. He has been having bilateral ear pain L > R that comes and goes. He wanted to be sure his ears were not infected. Past Medical History: Other than above, Past Medical History: Diagnosis Date ??? BPH (benign prostatic hyperplasia) ??? Neck pain 08/24/2012 ??? OA (osteoarthritis) of knee right . Medications: Current Outpatient Medications on File Prior to Visit Medication Sig Dispense Refill ??? pravastatin (Pravachol) 20 mg Tablet Take 1 tablet by mouth daily. 90 tablet 3 ??? ALPRAZolam (Xanax) 0.25 mg Tablet Take 1 tablet by mouth 3 times daily as needed for Anxiety. 90 tablet 0 ??? omeprazole (PriLOSEC) 40 mg Capsule, Delayed Release(E.C.) Take 1 capsule by mouth daily. 14 capsule 3 ??? tadalafiL (CIALIS) 5 mg Tablet [...] facility-administered medications on file prior to visit. Allergies:Penicillins, Betamethasone, and Dexamethasone ROS: Pertinent positive findings discussed above. No other findings on review of constitutional, visual, cardiovascular, respiratory, gastrointestinal, genitourinary, musculoskeletal, dermatologic, neurological, psychiatric, endocrine, hematologic or immunologic systems. Physical Examination: There were no vitals taken for this visit. General: Age-appropriate interactive behavior in no acute distress. Face:Symmetric without dysmorphic features. Ears: Auricles symmetric bilaterally without lesions. External auditory canals are clear. On the left, tympanic membrane is clear. Middle ear on the left without middle ear pathology. On the right, tympanic membrane clear. Middle ear on the right without middle ear pathology. Nose: Patent anteriorly; healthy pink mucosa without lesions. Septum without significant deviation. Mouth: Lips and gingiva pink, moist, without lesions. Dentition in need of repair. Tongue and floorof mouth soft without lesions or masses. Hard palate without lesions. Pharynx: Soft palate without lesions; uvula intact without evidence of submucus cleft palate. Oropharynx symmetric.Pain with deep palpation along the right TMJ. No masses Neck: No lymphadenopathy. Impression: 1) hx of otalgia with possible TMJ. Normal ear exam today. Plan: I suggested he perform neck exercises. Monitor for TMJ tension. Return to clinic leanan GARCIA [facility] Otolaryngology-Head and Neck Surgery [place], [place] [phone] documented in this encounter Plan of Treatment Upcoming Encounters Date Type Department Care Team (Late st Contact Info) Description 12/15/2024 11:30 AM EDT Office Visit [place] [address] Charline Ziegler MD [facility] [place] [address] documented as of this encounter Visit Diagnoses Diagnosis Otalgia of both ears Otalgia, unspecified documented in this encounter Care Teams Concrete Inspector Relationship Specialty Start Date End Date Reji Adams MD [facility] [place] [address] PCP - General General Internal Medicine 07/13/15 documented as of this encounter
--- OUTSIDE RECORDS SUMMARY | 2024-07-09 11:10 | XMS_ITS | Encounter Summary ---
Author Organization [facility] [place] [address] Care Team Providers Care Oyster Floater Name Role Phone Reji Adams MD Primary Care Provider [phone] Reason for Visit * Reason Onset Date Comments Medication Refill 11/17/2020 Encounter Details Date Type Department Care Team (Late st Contact Info) Description 11/17/2020 Refill Internal Medicine at [address] [address] Reji Adams MD [facility] [place] [address] Anxiety Social History Tobacco Use Types Packs/Day [...] 11:30 AM EDT Office Visit [place] [address] Charline Ziegler MD [facility] [place] [address] documented as of this encounter Visit Diagnoses Diagnosis Anxiety Anxiety state, unspecified documented in this encounter Care Teams Oyster Floater Relationship Specialty Start Date End Date Reji Adams MD [facility] [place] [address] PCP - General General Internal Medicine 07/13/15 documented as of this encounter
--- OUTSIDE RECORDS SUMMARY | 2024-07-09 11:10 | XMS_ITS | Encounter Summary ---
Author Organization [facility] [place] [address] Care Team Providers Care Loan Documents Closer Name Role Phone Reji Adams MD Primary Care Provider [phone] Encounter Details Date Type Department Care Team (Late st Contact Info) Description 08/29/2020 1:20 PM EST Laboratory Appointment Lab at [address] [phone] Social History Tobacco Use Types Packs/Day Years [...] 11:30 AM EDT Office [place] [address] Charline Ziegler MD [facility] [place] [address] documented as of this encounter Procedures Procedure Name Priority Date/Time Associated Diagnosis Comments PSA (ULTRASENSITIVE) Routine 08/29/2020 1:26 PM EST documented in this encounter Results * PSA (Ultrasensitive) (08/29/2020 1:26 PM EST) Prostate Specific Antigen (Ultrasensitive ) 0.05 0.00 - 4.00 ng/mL [facility] Comment: PLEASE NOTE: The above reference interval is intended for healthy males with an intact prostate. Values within this reference interval may indicate recurrence in men who have undergone radical prostatectomy. Blood specimen (specimen) Venous Draw / Unknown 08/29/2020 1:26 PM EST 08/29/2020 3:28 PM EST Narrative Resulting Agency Comment Spec In Lab Pia Stout ORGANIC PREPARATION TECHNICIAN CHEMISTRY ORDERABLE S [facility] [place] [address] documented in this encounter Visit Diagnoses Not on filedocumented in this encounter Care Teams Loan Documents Closer Relationship Specialty Start Date End Date Reji Adams MD [facility] [place] [address] PCP - General General Internal Medicine 07/13/15 documented as of this encounter
--- OUTSIDE RECORDS SUMMARY | 2024-07-09 11:10 | XMS_ITS | Encounter Summary ---
Author Organization [facility] Address [facility] [place] [address] Care Team Providers Care Welding Machine Setter Name Role Phone Reji Adams MD Primary Care Provider [phone] Reason for Visit * Reason Comments Back Pain in the morning - for a couple of months Encounter Details Date Type Department Care Team (Late st Contact Info) Description 11/20/2020 10:00 AM EDT Office Visit Internal Medicine at [address] [address] Tomas Salgado MD [facility] INTERNAL [facility] [place] [address] Acute right-sided low back pain without sciatica Social History Tobacco Use Types Packs/Day Years [...] Sign Reading Time Taken Comments Blood Pressure 121/70 11/20/2020 10:03 AM EDT Pulse 62 11/20/2020 10:03 AM EDT Temperature 36.4 ??C (97.5 ??F) 11/20/2020 1 0:03 AM EDT Respiratory Rate 14 11/20/2020 10:0 3 AM EDT Oxygen Saturation 100% 11/20/2020 10: 03 AM EDT Inhaled Oxygen Concentration - - Weight 86.2 kg (190 lb) 11/20/2020 10:0 3 AM EDT with boots on Height 177.8 cm (5' 10) 11/20/2020 10: 03 AM EDT Body Mass Index 27.26 11/20/2020 10:03 AM EDT documented in this encounter Progress Notes * Tomas Salgado MD - 11/20/2020 10:00 AM EDT General Internal Medicine Ken Mckeon is a 75 y.o. male who presents for an urgent visit due to back pain. Over the past couple of months when he wakes up in the morning he has upper lumbar back pain, moreso in the right flank area, that he notices when he first gets up out of bed. After he gingerly gets up the pain subsides and he does not have further issues with it during the day. It feels like something is shifting in his back. Not waking him up at night. No other provoking factors. Able to walk 1.5 miles per day without issues. Does not radiate, not associated with weakness, numbness, fever, weight loss, dysuria, hematuria, or painful BMs. No recent changes to sleeping arrangements. He has tried acetaminophen and ibuprofen without much relief. He has a history of cervical and lumbar spine disease, bilateral hip replacements, and localized prostate cancer s/p resection for which he follows with an outside urologist but the PSA has been rising and the plan is to start radiation treatments. He is waiting to see radiation oncology. Objective: Medications 11/20/20 1002 Medication Sig Taking? ALPRAZolam (Xanax) 0.25 mg [...] Take 1 tablet by mouth daily. Yes cyclobenzaprine (Flexeril) 5 mg Tablet Take 1 tablet by mouth 3 times daily as needed (muscular pain). omeprazole (PriLOSEC) 40 mg Capsule, Delayed Release(E.C.) Take 1 capsule by mouth daily. Patient not taking: Reported on 10/12/2020 Visit Vitals BP 121/70 (BP Location (NBP): Right arm, Patient Position: Sitting, BP Cuff Sizes: Adult (25-34 cm)) Pulse 62 Temp 36.4 ??C (97.5 ??F) (Temporal) Resp 14 Ht 177.8 cm (5' 10) Wt 86.2 kg (190 lb) Comment: with boots on SpO2 100% BMI 27.26 kg/m?? BP Readings from Last 3 Encounters: 11/20/20 121/70 10/12/20 134/76 08/03/20 121/77 Wt Readings from Last 3 Encounters: 11/20/20 86.2 kg (190 lb) 10/12/20 85.1 kg (187 lb 9.6 oz) 08/29/20 83.9 kg (185 lb) Physical Exam Constitutional: General: He is not in acute distress. Appearance: He is not ill-appearing. Abdominal: Tenderness: There is no right CVA tenderness or left CVA tenderness. Musculoskeletal: Right lower leg: No edema. Left lower leg: No edema. Comments: No spinous process tenderness to palpation. Strength in bilateral LEs is 5/5. There is no point tenderness to the area of pain, located along the posterior inferior ribs on the right side. No pain elicited with twisting or bending of the torso Neurological: Mental Status: He is alert. Sensory: No sensory deficit ( in bilateral LE). Motor: No weakness ( in bilateral LE). Gait: Gait normal. Deep Tendon Reflexes: Reflexes normal ( in bilateral LE). Comments: Follows simple commands without issue. No dysarthria Psychiatric: Mood and Affect: Mood normal. Behavior: Behavior normal. Thought Content: Thought content normal. Assessment and Plan: Mr. Mckeon was seen today for the following issues. Problem List Items Addressed This Visit Back pain Relevant Medications cyclobenzaprine (Flexeril) 5 mg Tablet Other Relevant Orders XR Ribs Right XR Thoracic Spine 2 View Including Swimmers View Note that his UA and BMP from a month ago are normal and are not suggestive of a renal etiology of his symptoms. I think that this pain is most likely muscular in nature, however given his history ofprostate cancer, do want to obtain xrays of the area to rule out bony disease. 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 He would like to try cyclobenzaprine and see if this provides relief. Would consider PT as well, which he would like to avoid at this time. A mask and face shield were worn by myself for the entirety of the visit. documented in this encounter Plan of Treatment Upcoming Encounters Date Type Department Care Team (Late st Contact Info) Description 12/15/2024 11:30 AM EDT Office [place] [address] Charline Ziegler MD [facility] [place] [address] documented as of this encounter Results * XR Thoracic Spine 2 View Including Swimmers View (11/23/2020 9:57 AM EDT) Anatomical Region Laterality Modality N/A Digital Radiogra phy Impressions 11/23/2020 10:54 AM EDT No height loss of thoracic spine. Thoracic spine spondylosis is represented by osteophyte formation. Thank you for letting us participate in the care of this patient. ??If you are a health care provider and have any questions regarding this report, please contact the number below. ??For patients who have questions please contact the health managed care director that requested your imaging first. ? Narrative 11/23/2020 10:54 AM EDT EXAMINATION: XR THORACIC SPINE 2 VIEW INCLUDING SWIMMERS VIEW CLINICAL HISTORY: two months of right posterior rib/flank pain, no radiation, hx prostate cancer, , entered by ordering service TECHNIQUE: 3 views T-spine, AP lateral and swimmer's view COMPARISON: MRI, September 2016. FINDINGS: C3-C5 ACDF is included on one image. Vertebral bodies: Normal vertebral height. No vertebral fracture. Osteophytes arise from multiple vertebral bodies, large osteophyte at T9-T10 level.. Disk spaces: Normal. Soft tissues: ??Normal. ?? Alignment: No subluxation Procedure Note Liberty Diaz MD - 11/23/2020 EXAMINATION: XR THORACIC SPINE 2 VIEW INCLUDING SWIMMERS VIEW CLINICAL HISTORY: two months of right posterior rib/flank pain, noradiation, hx prostate cancer, , entered by ordering service TECHNIQUE: 3 views T-spine, AP lateral and swimmer's view COMPARISON: MRI, September 2016. FINDINGS: C3-C5 ACDF is included on one image. Vertebral bodies: Normal vertebral height. No vertebral fracture.Osteophytes arise from multiple vertebral bodies, large osteophyte at T9-T10 level.. Disk spaces: Normal. Soft tissues: Normal. Alignment: No subluxation IMPRESSION No height loss of thoracic spine. Thoracic spine spondylosis is represented by osteophyte formation. Thank you for letting us participate in the care of this patient. If youare a health care provider and have any questions regarding this report,please contact the number below. For patients who have questions please contactthe health managed care director that requested your imaging first. Tomas Salgado MD IMG DX ORDERABLES * XR Ribs Right (11/23/2020 9:57 AM EDT) Anatomical Region Laterality Modality Chest Right Digital Radiogra phy Narrative 11/23/2020 11:37 AM EDT EXAMINATION: XR RIBS RIGHT CLINICAL HISTORY: two months of right posterior rib/flank pain, no radiation, hx prostate cancer TECHNIQUE: 3 views RIGHT ribs COMPARISON: None FINDINGS: EXAMINATION: XR RIBS RIGHT CLINICAL HISTORY: two months of right posterior rib/flank pain, no radiation, hx prostate cancer, , entered by ordering service TECHNIQUE: Chest 1 view Right wrist, 3 views COMPARISON: Chest x-ray, February 28, 2017. FINDINGS: Chest Pleura: No pneumothorax, No effusion Lungs: Clear Cardiomediastinal contour: Normal Left AC joint-widened AC interval likely related to decompression. Ribs Diffuse decreased bone mineralization. No acute fractures seen. Impression 1. ??Lungs clear. 2. ??No acute fracture 3. ??Decreased bone mineralization. Thank you for letting us participate in the care of this patient. ??If you are a health care provider and have any questions regarding this report, please contact the number below. ??For patients who have questions please contact the health managed care director that requested your imaging first. ? Procedure Note Liberty Diaz MD - 11/23/2020 EXAMINATION: XR RIBS RIGHT CLINICAL HISTORY: two months of right posterior rib/flank pain, noradiation, hx prostate cancer TECHNIQUE: 3 views RIGHT ribs COMPARISON: None FINDINGS: EXAMINATION: XR RIBS RIGHT CLINICAL HISTORY: two months of right posterior rib/flank pain, noradiation, hx prostate cancer, , entered by ordering service TECHNIQUE: Chest 1 view Right wrist, 3 views COMPARISON: Chest x-ray, February 28, 2017. FINDINGS: Chest Pleura: No pneumothorax, No effusion Lungs: Clear Cardiomediastinal contour: Normal Left AC joint-widened AC interval likely related to decompression. Ribs Diffuse decreased bone mineralization. No acute fractures seen. Impression 1. Lungs clear. 2. No acute fracture 3. Decreased bone mineralization. Thank you for letting us participate in the care of this patient. If youare a health care provider and have any questions regarding this report,please contact the number below. For patients who have questions please contactthe health managed care director that requested your imaging first. Tomas Salgado MD IMG DX ORDERABLES documented in this encounter Visit Diagnoses Diagnosis Acute right-sided low back pain without sciatica Acute right-sided low back pain without sciatica documented in this encounter Care Teams Welding Machine Setter Relationship Specialty Start Date End Date Reji Adams MD [facility] [place] [address] PCP - General General Internal Medicine 07/13/15 documented as of this encounter
--- OUTSIDE RECORDS SUMMARY | 2024-07-09 11:10 | XMS_ITS | Encounter Summary ---
Author Organization [facility]1983 Address [facility] [place] [address] Care Team Providers Care Bilingual Interpreter Name Role Phone Reji Adams MD Primary Care Provider [phone] Encounter Details Date Type Department Care Team (Late st Contact Info) Description 09/18/2020 Transcribe Orders Laboratory at [facility] [address] [place] [address] Rigo Rocha MD [address] [place] [id number] S/P prostatectomy Social History Tobacco Use Types Packs/Day Years [...] 11:30 AM EDT Office [place] [address] Charline Ziegler MD [facility] [place] [address] documented as of this encounter Results * PSA Screen (09/21/2020 12:59 PM EST) PSA Screen 0.08 0.00 - 4.00 ng/mL [facility] Comment: PLEASE NOTE: The above reference interval is intended for healthy males with an intact prostate. Values within this reference interval may indicate recurrence in men who have undergone radical prostatectomy. Blood specimen (specimen) 09/21/2020 12:59 PM EST 09/21/2020 2:23 PM EST Narrative Resulting Agency Comment Spec In Lab Rigo Rocha MD CHEMISTRY ORDERABLES [facility] [address] [place] [address] documented in this encounter Visit Diagnoses Diagnosis S/P prostatectomy Other postprocedural status documented in this encounter Care Teams Bilingual Interpreter Relationship Specialty Start Date End Date Reji Adams MD [facility] GENER[facility] [place] [address] PCP - General General Internal Medicine 07/13/15 documented as of this encounter
--- OUTSIDE RECORDS SUMMARY | 2024-07-09 11:10 | XMS_ITS | Encounter Summary ---
Author Organization [facility] Address [facility] [place] [address] Care Team Providers Care Candy Bar Attendant Name Role Phone Reji Adams MD Primary Care Provider [phone] Reason for Referral * Consultation (Urgent) - Closed Specialty Diagnoses / Procedures Referred By Duglas arizmendi Referred To Contact Orthopaedics Diagnoses Pain of finger, unspecified laterality Anmol Hoyos MD [facility] [place] [address] [facility] [address] [place] [id number] Referral ID Status Reason Start Date Expiration Date V isits Requested Visits Authorized [id number] Closed Consult, Test & Treat 12/23/2020 12/23/2021 1 1 Reason for Visit * Reason Comments Trigger Finger Encounter Details Date Type Department Care Team (Late st Contact Info) Description 12/23/2020 4:59 AM EDT - 12/23/2020 7:44 AM EDT [place] [address] Elizabeth Powell MD [facility] [place] [address] Pain of finger, unspecified laterality; Pain in finger of left hand Discharge Disposition: Home Social History Tobacco Use [...] Sign Reading Time Taken Comments Blood Pressure 108/85 12/23/2020 4:53 AM EDT Pulse 68 12/23/2020 4:53 AM EDT Temperature 36.4 ??C (97.5 ??F) 12/23/2020 4:53 AM ED T Respiratory Rate 15 12/23/2020 4:53 AM EDT Oxygen Saturation 99% 12/23/2020 4:53 AM EDT Inhaled Oxygen Concentration - - Weight 83.9 kg (185 lb) 12/23/2020 4:53 AM EDT Height - - Body Mass Index 26.17 11/30/2020 4:31 AM EDT documented in this encounter Discharge Instructions * Discharge Instructions* Anmol Hoyos MD - 12/23/2020 7:31 AM EDT You were seen today for finger pain. He spoke with our hand surgeon on-call, and I have given you areferral to their clinic next week. You are being given a prescription for a small amount of pain medication for symptom control at night. This medication impairs her ability to drive or other fine motor skills. Please take only as necessary. Attend your regularly scheduled follow-up for next week. Return to the emergency department for any symptoms that may be emergently concerning to you. documented in this encounter Medications at Time of Discharge Medication Sig Dispensed Refills Start Date End Date acetaminophen (TYLENOL) 650 mg Tablet Sustained Release Take 650 mg by mouth every 8 hours as needed for Pain. Do not exceed 6 tabs in 24 hours multivitamin (THERAGRAN) tablet Take 1 tablet by mouth daily. diazePAM (Valium) 5 mg Tablet Take 1 tablet by mouth every 6 hours as needed for Sleep or Muscle spasms. 10 tablet 12/23/2020 02/15/2021 cyclobenzaprine (Flexeril) 5 mg TabletIndications:Acut e right-sided low back pain without sciatica Take 1 tablet by mouth 3 times daily as needed (muscular pain). 21 tablet 11/20/2020 02/15/2021 ALPRAZolam (Xanax) 0.25 mg TabletIndications:Anxi ety Take 1 tablet by mouth 3 times daily as needed for Anxiety. 90 tablet 11/17/2020 01/08/2021 pravastatin (Pravachol) 20 mg Tablet Take 1 tablet by mouth daily. 90 tablet 3 08/28/2020 08/19/2021 omeprazole (PriLOSEC) 40 mg Capsule, Delayed Release(E.C.) Take 1 capsule by mouth daily. 14 capsule 3 08/03/2020 02/12/2021 tadalafiL (CIALIS) 5 mg Tablet Take 5 mg by mouth as needed for Erectile Dysfunction. 03/17/2023 MALCOLM EXTRACT ORAL Take by mouth. 11/09/19 aspirin 81 mg Tablet, Delayed Release (E.C.) Take 81 mg by mouth daily. 03/17/2023 documented as of this encounter ED Notes * Yoly Steiner RN - 12/23/2020 7:40 AM EDT Pt given discharge papers with teaching. Rx called in to pharmacy by Dr. Ridley. Pt declining last vitals. Expresses want to leave. Referral to ortho. Pt states they have not called him and he will not likely go. Phone number is on discharge papers, pt aware he can call if needed. * Elizabeth Powell MD - 12/23/2020 7:14 AM EDT The patient was seen in conjunction with Dr. Hoyos, the resident physician. I have independently performed the enrique portions of the history and physical exam. I have reviewed all diagnostic studies personally including labs, imaging studies and EKG's. I have reviewed the patient's chart where indicated. I have also reviewed/obtained the allergies, medication, past medical history, and social history as documented in other parts of the chart. I have discussed the details of the case with the resident and agree with the all enrique portions of the H&P and plan as described in the resident noteabove unless stated otherwise. Briefly, the patient a 75 y.o. male RHD who presents to the Emergency Department requesting a steroid injection for his left middle finger trigger finger. He states that he has had intermittent pain x 2 weeks and has been trying to splint it without much relief. On exam, there is no erythema or joint swellingto suggest infection. He has some pain with palpation and full extension, but is able to ROM. We discussed with Ortho/Hand who feel that there is no indication for emergent intervention. We will place a referral for followup in clinic. Elizabeth Powell MD 12/24/20 1623 * Anmol Hoyos MD - 12/23/2020 6:34 AM EDT ED Resident Note HPI: Ken Mckeon is a 75 y.o. male who presents to the Emergency Department with acute trigger finger for several weeks. States pain worsened significantly yesterday evening and patient was unable tosleep secondary to pain so he came into the ED. Has tried advil, aleve, tylenol, 3 different topical medications, heat, and cold without relief. States he has had trigger fingers previously with injections but this one is far worse. Pain is 2/10 now but much worse with movement or at night. No redness, no erythema, no purulence. Has been to 5x outside hospitals trying to get in to have someone address this issue. No fevers, no chills. No cough, no SOB, no abd pain, no chest pain. States he has an appointment on to get this addressed. Pt was seen under the supervision of an attending physician. Review of Systems Pertinent positives and negatives are included in the HPI, otherwise at least ten systems were reviewed and negative. Past Medical and Surgical Histories, Social History, Medications, Allergies were reviewed in the chart. Vitals: ED Triage Vitals [12/23/20 0453] BP: 108/85 Heart Rate: 68 Resp: 15 Temp: 36.4 ??C (97.5 ??F) Temp src: Oral SpO2: 99 % O2 Device: RA O2 Flow Rate (L/min): n/a Physical Exam General: AAOx4, in NAD HEENT: Normocephalic/atraumatic, EOMI. Neck: Trachea midline Cardiovascular: RRR Pulmonary: LCTAB Abdomen: Soft, nondistended, no TTP, no rebound/guarding Skin: [place], warm, dry Extremities: L 3rd finger held in slight flexion. Significant pain with passive extension. No redness, warmth, or purulence. Neuro: No grossly obvious deficits. Psych: Normal mood and thought pattern. ED Course: I have reviewed labs and imaging, images and available reports, and they are significant for: No significant labs or imaging obtained. No orders to display Assessment and Plan: 75 y.o. male with history of trigger finger presents with trigger finger seeking steroid injection.He is afebrile and denies any systemic symptoms consistent with infection. The appearance of his finger is not consistent with infection either as it is not red, warm, purulent. Low concern for septic joint as described. Low concern for tenosynovitis based on history and physical exam. I believe the patient most likely has trigger finger as he has had this diagnosis before and is familiar with his symptoms. I discussed this patient with our hand surgeons litigation counsel. Stated that they do not believea steroid injection benefit the patient at this time. Provide the patient a small amount of diazepam for symptom relief, anxiolysis, sleep at home. Provided referral to orthopedic surgery for furtherevaluation and management at their discretion. Patient discharged home in stable condition as above. Anmol Hoyos MD Resident 12/23/20 1517 Elizabeth Powell MD 12/24/20 1614 Anmol Hoyos MD Resident 01/03/21 1311 Associated attestation - Elizabeth Powell MD - 01/05/2021 2:21 AM EDT ED ATTENDING ATTESTATION The patient was seen in conjunction with Dr. Hoyos, the resident physician. I have independently performed the enrique portions of the history and physical exam. I have reviewed all diagnostic studies personally including labs, imaging studies and EKGs. I have discussed the details of the case with the resident and agree with the assessment and plan as described in the resident note above unless noted in my separate note. * Lynda Munoz RN - 12/23/2020 5:00 AM EDT When asking if pt felt like harming himself he stated no, not really. when asked what that ment he stated it means Im okay. documented in this encounter Plan of Treatment Upcoming Encounters Date Type Department Care Team (Late st Contact Info) Description 12/15/2024 11:30 AM EDT Office Visit [place] [address] Charline Ziegler MD [facility] [address] Scheduled Referrals Name Type Priority Associated Diagnoses Orde r Schedule Referral to Orthopaedics Outpatient Referral Routine Pain of finger, unspecified laterality Ordered: 12/23/2020 documented as of this encounter Visit Diagnoses Diagnosis Pain of finger, unspecified laterality Pain in finger of left hand Pain in limb documented in this encounter Care Teams Candy Bar Attendant Relationship Specialty Start Date End Date Reji Adams MD [facility] [place] [address] PCP - General General Internal Medicine 07/13/15 documented as of this encounter
--- OUTSIDE RECORDS SUMMARY | 2024-07-09 11:10 | XMS_ITS | Encounter Summary ---
Author Organization [facility] Address [facility] [place] [address] Care Team Providers Care Dba Name Role Phone Reji Adams MD Primary Care Provider [phone] Reason for Visit * Reason Comments Back Pain pain in the center o f the back, been 3 days, SOB, no pain in arm, neck or jaw, pain in constant, does not fluctuate with movement Encounter Details Date Type Department Care Team (Late st Contact Info) Description 03/01/2021 5:00 PM EDT Office [place] [phone] May Ly PA [facility] [place] [address] PATIENT NOT SEEN Social History Tobacco Use Types Packs/Day Years [...] Sign Reading Time Taken Comments Blood Pressure 109/73 03/01/2021 5:09 PM EDT Pulse 69 03/01/2021 5:09 PM EDT Temperature 36.8 ??C (98.2 ??F) 03/01/2021 5:09 PM ED T Respiratory Rate 16 03/01/2021 5:09 PM EDT Oxygen Saturation 99% 03/01/2021 5:09 PM EDT Inhaled Oxygen Concentration - - Weight - - Height - - Body Mass Index - - documented in this encounter Progress Notes * May Ly PA - 03/01/2021 5:00 PM EDT Patient did not wish to wait. documented in this encounter Plan of Treatment Upcoming Encounters Date Type Department Care Team (Late st Contact Info) Description 12/15/2024 11:30 AM EDT Office [place] [address] Charline Ziegler MD [facility] [place] [address] documented as of this encounter Visit Diagnoses Diagnosis DH PATIENT NOT SEEN documented in this encounter Care Teams Dba Relationship Specialty Start Date End Date Reji Adams MD [facility] [place] [address] PCP - General General Internal Medicine 07/13/15 documented as of this encounter
--- OUTSIDE RECORDS SUMMARY | 2024-07-09 11:10 | XMS_ITS | Encounter Summary ---
Author Organization [facility] [place] [address] Care Team Providers Care Punch Machine Operator Name Role Phone Reji Adams MD Primary Care Provider [phone] Encounter Details Date Type Department Care Team (Late st Contact Info) Description 12/12/2020 Orders [place] [phone] Tomas Crow, [facility] [place] [address] Social History Tobacco Use Types Packs/Day Years [...] 11:30 AM EDT Office Visit [place] [phone] Charline Ziegler MD [facility] [place] [address] documented as of this encounter Visit Diagnoses Not on filedocumented in this encounter Care Teams Punch Machine Operator Relationship Specialty Start Date End Date Reji Adams MD [facility] [place] [address] PCP - General General Internal Medicine 07/13/15 documented as of this encounter
--- OUTSIDE RECORDS SUMMARY | 2024-07-09 11:10 | XMS_ITS | Encounter Summary ---
Author Organization [facility] Address [facility] [place] [address] Care Team Providers Care Pharmacy Customer Care Specialist Name Role Phone Reji Adams MD Primary Care Provider [phone] Reason for Visit * Reason Comments Annual Wellness Visit No specific concer ns Encounter Details Date Type Department Care Team (Late st Contact Info) Description 02/15/2021 9:20 AM EDT Office Visit Internal Medicine at [address] [address] Reji Adams MD [facility] [place] [address] Anxiety; Malignant neoplasm of prostate; History of thyroiditis; Other hyperlipidemia; Wellness examination; Advanced directives, counseling/discussio n; Thyroiditis Social History Tobacco Use Types Packs/Day Years [...] Sign Reading Time Taken Comments Blood Pressure 113/66 02/15/2021 9:16 AM EDT Pulse 64 02/15/2021 9:16 AM EDT Temperature 36.4 ??C (97.6 ??F) 02/15/2021 9 :16 AM EDT Respiratory Rate - - Oxygen Saturation 100% 02/15/2021 9:1 6 AM EDT Inhaled Oxygen Concentration - - Weight 85.7 kg (189 lb) 02/15/2021 9:16 AM EDT with shoes on Height 182.6 cm (5' 11.89) 02/15/2021 9:16 AM EDT with shoes on Body Mass Index 25.71 02/15/2021 9:16 AM EDT documented in this encounter Patient Instructions * Patient Instructions* Liza Kelley CCMA - 02/15/2021 9:20 AM EDT Please remember to bring or send a copy of your Advance Directive to us here at [facility], so we may save it securely in your record. If you update your Advance Directive by making any changes, please send us a copy at that time. Please speak with one of our staff if you would like to review your Advance Directive with one of our Certified Advance Care Planning Facilitators. You can also call for more information about this free service, schedule an appointment, or register for a free group information session. documented in this encounter Progress Notes * Reji Adams MD - 02/15/2021 9:20 AM EDT MEDICARE ANNUAL WELLNESS VISIT Mr. Ken Mckeon, a 75 y.o. male, presents today for a Medicare Annual Wellness Visit. CURRENT PROVIDERS & SUPPLIERS REGULARLY INVOLVED IN PROVIDING MEDICAL CARE (Update in chart) Patient Care Team: Reji Adams MD as PCP - General (General Internal Medicine) Ron Burns MD as PCP (General Internal Medicine) [] Mr. [...] G47.00 ??? Cervical radiculopathy M54.12 ??? Depression F32.9 ??? Back pain M54.9 ??? Cervical stenosis of spinal canal M48.02 ??? Peripheral neuropathy G62.9 ??? Urinary urgency R39.15 ??? Right arm numbness R20.0 ??? 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 Chronic left shoulder pain M25.512, G89.29 ??? 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 Trigger finger, left ring finger M65.342 ??? S/P rotator cuff repair Z98.890 ??? Malignant neoplasm of prostate C61 Past Medical History: Diagnosis Date ??? BPH (benign prostatic hyperplasia) ??? Neck pain 08/24/2012 ??? OA (osteoarthritis) of knee right Past Surgical History: Procedure Laterality Date ??? CREATED BY INTERFACE Past surg hx. Procedure Date: 09/19/2010 ??? PRO COLONOSCOPY, DIAGNOSTIC 09/07/2013 COLONOSCOPY, DIAGNOSTIC performed by Ximena Gu MD at [facility] ENDOSCOPY ??? PRO COLONOSCOPY, REMV LESN, SNARE N/A 01/25/2020 COLONOSCOPY, POLYPECTOMY, REMOVAL LESION BY SNARE (WRVU 4.67) performed by Michelle Camarillo MDat [facility] ENDOSCOPY ??? PRO ENDOSCOPIC US EXAM, ESOPH N/A 03/14/2020 UPPER EUS- ENDOSCOPIC ULTRASOUND performed by Festus Carballo MD at [facility] ENDOSCOPY ??? PRO LIGATE/STRIP LONG SAPH VEIN BELW SEP-FEM JUNC 06/02/2012 LIGATION\DIV\STRIP GREATER SAPHENOUS VEIN performed by BEATRICE RODRÍGUEZ at [facility] MAIN OR ??? PRO PHLEB VEINS - EXTREM - TO 20 06/02/2012 STAB PHLEBECTOMY KARLI VEINS, EXTREMITY 10-20 INCISIONS-SANTI performed by BEATRICE RODRÍGUEZ at [facility] MAIN OR ??? PRO UPPER GI ENDOSCOPY, BIOPSY N/A 09/02/2017 EGD WITH BIOPSY (WRVU 2.49) performed by Rahul Escobar MD at [facility] ENDOSCOPY ??? PRO UPPER GI ENDOSCOPY, BIOPSY N/A 01/25/2020 EGD WITH BIOPSY (WRVU 2.49) performed by Michelle Camarillo MD at [facility] ENDOSCOPY ??? PRO UPPER GI ENDOSCOPY, BIOPSY N/A 03/14/2020 EGD WITH BIOPSY (WRVU 2.49) performed by Festus Carballo MD at [facility] ENDOSCOPY ??? US GUIDED BIOPSY PROSTATE ([place] ONLY) 02/08/2019 US Guided Transrectal Biopsy 02/08/2019 [facility] RAD ULTRASOUND Family History Relation Problem Age of Onset ??? Father Cancer testicular Diabetes ??? Mother Cancer bone MEDICATIONS, SUPPLEMENTS & ALLERGIES (Update in chart) Medications 02/15/21 0920 Medication Sig Taking? ALPRAZolam (Xanax) 0.25 mg [...] Take 1 tablet by mouth daily. Yes diazePAM (Valium) 5 mg Tablet Take 1 tablet by mouth every 6 hours as needed for Sleep or Muscle spasms. cyclobenzaprine (Flexeril) 5 mg Tablet Take 1 tablet by mouth 3 times daily as needed (muscular pain). Allergies Allergen Reactions ??? Penicillins Anaphylaxis Tongue swelling ??? Betamethasone hiccups after injection ??? Dexamethasone Hiccups after injection [] Mr. Mckeon did not identify any supplements, including calcium and vitamins. ADVANCE DIRECTIVES (Populated from chart) Advance Directives (Y or N): N HEALTH RISK ASSESSMENT (HRA) (Populated from questionnaire) myD-H Annual Wellness Visit Responses 02/12/2021 Health in general Good Quality of life Good Physical health Good Mental health Good Satisfaction with social activities Good Ability to carry out social activities Very Good Ability to carry out physical activities Completely Bothered by emotional problems Never Rate of fatigue Moderate Rate of pain 3 PROMIS-10 Physical Health Score 47.7 PROMIS-10 Mental Health Score 48.3 Hearing Loss Yes Activity - low level (Bathing, Dressing, Eating, Mobility, Using toilet, Grooming) No, I do not have difficulty with these activities Activity - high level (Laundry, Housekeeping, Banking, Shopping, Use phone, Food Prep, Transportation, Taking meds) I do not need any help Fallen in last year No Difficulties with balance or walking No Injured as a result of a fall No Walkways free of cords/clutter Yes Smoke detectors in house Yes Difficulty walking 1/4 mile No or some difficulties Difficulty climbing a flight of stairs No or some difficulties Involuntarily lost > 10 pounds Yes Feel everything is an effort/could not get going Rarely or sometimes (2 times or less/week) Physical activity level Regular physical activity (at least 2-4 hours per week) Disability Score (FiND) 3 (Frail) Little interest or pleasure Not at all Down, depressed, hopeless Not at all Feel lonely or isolated Never Have money for everyday living Yes Confident filling medical forms - Medication finances - Smoking Status - Drinking frequency - Drinks per day - 6+ drinks on one occasion - Audit-C Score Incomplete 10 mins of vigorous physical activity - 10 mins of moderate physical activity - Time spent on moderate physical activity - Eat Fruit - Eat Vegetables - Wear Seatbelt - Live Alone - School - Employment Status - Combined Household Income - Who is taking survey - VITAL SIGNS (Record in chart) Visit Vitals BP 113/66 (BP Location (NBP): Left arm, Patient Position: Sitting, BP Cuff Sizes: Adult (25-34 cm)) Pulse 64 Temp 36.4 ??C (97.6 ??F) (Oral) Ht 182.6 cm (5' 11.89) Comment: with shoes on Wt 85.7 kg (189 lb) Comment: with shoes on SpO2 100% BMI 25.71 kg/m?? DEPRESSION SCREENING (Populated from chart & questionnaire) PHQ9 Questionnaires Data (Clinic and Pt Entered): last 4 values of depression scores No flowsheet data found. PHQ-9 QUESTIONNAIRE SCORE ONLY (Clinic) 08/24/2015 12/08/2015 03/22/2016 11/22/2016 PHQ - 9 Score (Clinic) 4 (Minimal Depression) 0 (No Depression) 2 (Minimal Depression) 6 (Mild Depression) Some recent data might be hidden * A score of 5 or greater [...] Due ??? Advance Directive Never done ??? Influenza (Flu) vaccine (1 of 1 - Influenza standard series) 03/28/2021 ??? Tetanus vaccine 04/02/2023 ??? Colonoscopy 01/24/2030 ??? Pneumo vaccine (65+) Completed ??? Zoster vaccine Completed ??? Hepatitis C Screening Completed ??? Covid-19 Vaccine Completed ??? Tdap adult Completed Popular services typically covered by Medicare Part B for patients 65 and older (may be more frequent in high risk patients) DT: 04/09 Pneumovax: 09/09 and [id number] Zostavax: 04/09 discussed shingrix 05/2020 and 07/2020 Flu: 05/16 Covid: completed series Seat Belts: consistent Cholesterol (total/HDL/LDL): 1/21: 157/72/72 Colon cancer screenin01/25/20: polyps HIV: neg [...] the past. HLD: on pravastatin 20mg daily with LDL under good control at 80. No side effects. Thyroiditis: TSH 1.52 11/2019 Prostate cancer: PSA up to 0.172 01/2021 and has been rising. Is planning MRI in Mar. Has appointment with Dr Davis in [place]. General - No apparent distress. ENT - [...] all orders for this visit: Anxiety - Stable Malignant neoplasm of prostate - Cont to follow with urology - Does have biochemical recurrence History of thyroiditis - TSH Other hyperlipidemia - Cont statin Wellness examination - See above Advanced directives, counseling/discussion [] A copy of the Risk Factors and Personalized Health Advice, Assessment and Plan and Health Maintenance List was copied to the patient's After Visit Summary. THE BELOW IS FOR INFORMATIONAL PURPOSES ONLY For the AVS: Copy Risk Factors and Personalized Health Advice Copy A&P Insert .HMLIST (list of patient's health maintenance). Billing: AWV Initial (G0438); AWV Subsequent (G0439). documented in this encounter Miscellaneous Notes * Addendum Note - Liza Kelley CCMA - 02/15/2021 9:20 AM EDTAddended by: LIZA KELLEY on: 02/15/2021 10:00 AM Modules accepted: Orders documented in this encounter Plan of Treatment Upcoming Encounters Date Type Department Care Team (Late st Contact Info) Description 12/15/2024 11:30 AM EDT Office [place] [address] Charline Ziegler MD [facility] [place] [address] documented as of this encounter Procedures Procedure Name Priority Date/Time Associated Diagnosis Comments HC VENIPUNCTURE Routine 02/15/2021 10:15 AM EDT Thyroiditis documented in this encounter Results * TSH (02/15/2021 10:15 AM EDT) Thyroid Stimulating Hormone 1.57 0.27 - 4.20 mcIU/mL [facility] Comment: Reference Interval (mcIU/mL): Females: ??First Trimester: 0.23-3.88 ??Second Trimester: 0.22-3.90 ??Third Trimester: 0.44-4.66 Blood 02/15/2021 10:1 5 AM EDT 02/15/2021 11:30 AM EDT Narrative Resulting Agency Comment Spec In Lab Reji Adams MD CHEMISTRY ORDERABLES [facility] [place] [address] documented in this encounter Visit Diagnoses Diagnosis Anxiety Anxiety state, unspecified Malignant neoplasm of prostate History of thyroiditis Personal history of other endocrine, metabolic, and immunity disorders Other hyperlipidemia Wellness examination Advanced directives, counseling/discussion Other specified counseling Thyroiditis Thyroiditis, unspecified documented in this encounter Care Teams Pharmacy Customer Care Specialist Relationship Specialty Start Date End Date Reji Adams MD [facility] [place] [address] PCP - General General Internal Medicine 07/13/15 documented as of this encounter
--- OUTSIDE RECORDS SUMMARY | 2024-07-09 11:10 | XMS_ITS | Encounter Summary ---
Author Organization [facility] Address [facility] [place] [address] Care Team Providers Care [employer] Club Agent Name Role Phone Reji Adams MD Primary Care Provider Reason for Referral * Consultation (Routine) - Closed Specialty Diagnoses / Procedures Referred By Contac t Referred To Contact Sports Medicine Diagnoses Chronic back pain, unspecified back location, unspecified back pain laterality Reji Adams MD [facility] [place] [address] Ashish Dunham MD [address] [place] [address] Referral ID Status Reason Start Date Expiration Date V isits Requested Visits Authorized [id number] Closed Specialty Service Requested 12/19/2020 12/19/2021 1 1 * Surgical (Routine) - Closed Specialty Diagnoses / Procedures Referred By Contac t Referred To Contact Orthopaedics Diagnoses Chronic back pain, unspecified back location, unspecified back pain laterality Reji Adams MD [facility] [place] [address] [facility] [address] [place] [address] Referral ID Status Reason Start Date Expiration Date V isits Requested Visits Authorized [id number] Closed Specialty Service Requested 12/19/2020 12/19/2021 1 1 Scheduling Instructions Pt would like to see Dr. Dunham Reason for Visit * Reason Onset Date Comments Triage 12/19/2020 Encounter Details Date Type Department Care Team (Late st Contact Info) Description 12/19/2020 Telephone [place] [address] Sharifa Fernandez Triage Social History Tobacco Use Types Packs/Day [...] Miscellaneous Notes * Addendum Note - Reji Adams MD - 12/19/2020 12:02 PM EDTAddended by: REJI ADAMS on: 12/19/2020 12:02 PM Modules accepted: Orders * Addendum Note - Igor Hickey RN - 12/19/2020 12:00 PM EDT Addended by: IGOR HICKEY on: 12/19/2020 12:00 PM Modules accepted: Orders * Telephone Encounter - Sharifa Hanley - 12/19/2020 8:30 AM EDT Message: Patient is calling today to see if Dr Adams can recommend somewhere for him to have the Trigger Point injections done with cortisone. Patient states he is in a lot of pain and the normal office he gets this procedure done at is unable to do it. Patient is asking for help, stating he is shelly lot of pain and is asking for anyone who can give him this injection. Please call patient to discuss further. Ask caller their first and last name and relationship to the patient: self Best time to call back: any Ok to leave a message: yes Ok to send [facility] message: yes Offered Appointment: no MA/Nurse/Mold Stamper contacted via: Message: yes Call: no Pager: no documented in this encounter Plan of Treatment Upcoming Encounters Date Type Department Care Team (Late st Contact Info) Description 12/15/2024 11:30 AM EDT Office Visit [place] [address] Charline Ziegler MD [facility] [place] [address] Scheduled Referrals Name Type Priority Associated Diagnoses Orde r Schedule Referral to Orthopaedics Outpatient Referral Routine Chronic back pain, unspecified back location, unspecified back pain laterality Ordered: 12/19/2020 Referral to Sports Medicine Outpatient Referral Routine Chronic back pain, unspecified back location, unspecified back pain laterality Ordered: 12/19/2020 documented as of this encounter Visit Diagnoses Diagnosis Chronic back pain, unspecified back location, unspecified back pain laterality documented in this encounter Care Teams [employer] Agent Relationship Specialty Start Date End Date Reji Adams MD [facility] [place] [address] PCP - General General Internal Medicine 07/13/15 documented as of this encounter
--- OUTSIDE RECORDS SUMMARY | 2024-07-09 11:10 | XMS_ITS | Encounter Summary ---
Author Organization [facility] Address [facility] [place] [address] Care Team Providers Care Early Years Teacher Name Role Phone Reji Adams MD Primary Care Provider [phone] Reason for Visit * Reason Comments Otalgia Pain in left ear and radiating down to left jaw - difficulty in opening mouth and chewing/eating uncomfortable Encounter Details Date Type Department Care Team (Late st Contact Info) Description 01/18/2021 10:00 AM EDT Office [place] [address] Min Amaya MD [facility] [place] [address] TMJ (temporomandibular joint disorder) Social History Tobacco Use Types Packs/Day Years [...] Sign Reading Time Taken Comments Blood Pressure 108/65 01/18/2021 10:10 AM EDT Pulse 55 01/18/2021 10:10 AM EDT Temperature 36.6 ??C (97.8 ??F) 01/18/2021 1 0:10 AM EDT Respiratory Rate - - Oxygen Saturation 100% 01/18/2021 10: 10 AM EDT Inhaled Oxygen Concentration - - Weight 84.6 kg (186 lb 6.4 oz) 01/18/2021 10:10 AM EDT with shoes on Height 179.1 cm (5' 10.5) 01/18/2021 1 0:10 AM EDT approx - patient reported Body Mass Index 26.37 01/18/2021 10:10 AM EDT documented in this encounter Patient Instructions * Patient Instructions* Min Amaya MD - 01/18/2021 10:00 AM EDT Images from the original note were not included. Patient Education Temporomandibular Disorder: Care Instructions Overview Temporomandibular disorders (TMDs) are problems with the muscles and joints that connect your jaw to your skull. The disorders cause pain when you talk, chew, swallow, or yawn. You may feel this painon one or both sides. TMDs are often caused by tight jaw muscles. The tightness can be caused by clenching or grinding your teeth. This may happen when you have a lot of stress in your life. If you lower your stress, you may be able to stop clenching or grinding your teeth. This will help relax your jaw and reduce your pain. Your doctor may suggest a dental splint. Splints can help reduce teeth grinding and clenching. You may also be able to do some things at home to feel better. But if none of this works, your doctor may prescribe medicine to help relax your muscles and control the pain. Follow-up care is a enrique part of your treatment and safety. Be sure to make and go to all appointments, and call your doctor if you are having problems. It's also a good idea to know your test resultsand keep a list of the medicines you take. How can you care for yourself at home? ?? Put either an ice pack or a warm, moist cloth on your jaw for 15 minutes several times a day. You can try switching back and forth between moist heat and cold. ?? Make eating easy on your jaw. Choose softer foods that are easy to chew like eggs, yogurt, or soup. Avoid hard foods that cause your jaws to work very hard. Try cutting your food into small pieces. And if your jaw gets too painful to chew, or if it locks, you may need to puree your food for a while. ?? To relax your jaw, repeat this exercise for a few minutes every morning and evening. Watch yourself in a mirror. Gently open and close your mouth. Move your jaw straight up and down. But don't do this if it makes your pain worse. ?? Manage stress. You may be clenching or tightening your muscles when you are under stress. ?? Get at least 30 minutes of exercise on most days of the week to relieve stress. Walking is a good choice. ?? Ask your doctor if you can take an [id number] pain medicine, such as acetaminophen (Tylenol), ibuprofen (Advil, Motrin), or naproxen (Aleve). Be safe with medicines. Read and follow all instructions on the label. ?? Use good posture for sitting and standing. Slumping your shoulders disturbs the alignment of your facial bones and muscles. ?? Don't: ? Hold a phone between your shoulder and your jaw. ? Open your mouth all the way, like when you sing loudly or yawn. ? Clench or grind your teeth, bite your lips, or chew your fingernails. ? Clench things such as pens, pipes, or cigars between your teeth. When should you call for help? Call your doctor now or seek immediate medical care if: ? Your jaw is locked open or shut or it is hard to move your jaw. Watch closely for changes in your health, and be sure to contact your doctor if: ? Your jaw pain gets worse. ? Your face is swollen. ? You do not get better as expected. Where can you learn more? Visit our health information library at [email or web address]/Page365info You can also view health information on [employer], your personal patient account. Log in or sign uptoday. Enter P868 in the search box to learn more about Temporomandibular Disorder: Care Instructions. Current as of: May 23, 2020?Content Version: 12.9 ?? [employer]. Care instructions adapted under license by [facility]. If you have questions about a medical condition or this instruction, always ask your healthcare professional. [employer] disclaims any warranty or liability for your use of this information. documented in this encounter Progress Notes * Min Amaya MD - 01/18/2021 10:00 AM EDT Subjective: Patient ID: Ken Mckeon is a 75 y.o. male with a PMH of TKA, OA, anxiety, insomnia, cervical radiculopathy, MDD, prostate cancer who is here for ear ache and jaw pain. HPI Yesterday, he had an earache, though more in the jaw. Worse when applying pressure. Moving the jaw was uncomfortable. Seemed to radiate up into the ear. This morning feeling much better. Did havean episode where he thought he had an ear infection. 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 Will have occasional tinnitus, comes and goes. Does not grind his teeth at night. Does not have any teeth in the area, has had the teeth on the top left removed. No fevers/chills, RANDALL, visual changes. Does have aches, mostly arthritic, focused in the neck. No real muscle soreness. Does have prostate cancer, more frequency, no pain, hematuria, etc. Chronic leg swelling. Chief Complaint Patient presents with ??? Otalgia Pain in left ear and radiating down to left jaw - difficulty in opening mouth and chewing/eating uncomfortable Review of Systems ROS (positive in bold): General fevers, chills, night sweats, weight loss/gain HEENT changes in vision or hearing, jaw pain Card chest pain, palpitations Pulm SOB, cough, MARTIN GI abd pain, nausea, vomiting, diarrhea, constipation dysuria, urinary frequency, urgency MS: arthritis, arthralgia, muscle aches Neuro weakness, numbness, tingling, RANDALL Skin rash, skin lesions Psych depression, anxiety, difficulty sleeping Objective: BP 108/65 (BP Location (NBP): Left arm, Patient Position: Sitting, BP Cuff Sizes: Adult (25-34 cm)) Pulse 55 Temp 36.6 ??C (97.8 ??F) (Oral) Ht 179.1 cm (5' 10.5) Comment: approx - patient reported Wt 84.6 kg (186 lb 6.4 oz) Comment: with shoes on SpO2 100% BMI 26.37 kg/m?? Patient reported measures: Pain: Physical Health: Fall: PHQ-9 QUESTIONNAIRE SCORE ONLY (AMB) 11/22/2016 PHQ - 9 Score (Clinic) 6 (Mild Depression) Some recent data might be hidden Wt Readings from Last 3 Encounters: 01/18/21 84.6 kg (186 lb 6.4 oz) 12/23/20 83.9 kg (185 lb) 11/30/20 81.6 kg (180 lb) Physical Exam Constitutional: He is oriented to person, place, and time. He appears well- developed and well-nourished. No distress. Head: Normocephalic and atraumatic. No tenderness over the bilateral temporal arteries. Tenderness inferior to the left TMJ. Left Ear: Left ear without external deficit. Tympanic membrane visualized and without defect. Right Ear: Right ear without external deficit. Tympanic membrane visualized and without defect. Mouth: No oral lesions, MMM Cardiovascular: Normal rate, regular rhythm, normal heart sounds and intact distal pulses. Exam reveals no gallop and no friction rub. No murmur heard. Pulmonary/Chest: Effort normal and breath sounds normal. No respiratory distress. He has no wheezes. He has no rales. Neurological: He is alert and oriented to person, place, and time. Skin: Skin is warm and dry. No rash noted. No erythema. Psychiatric: He has a normal mood and affect. His behavior is normal. Judgment and thought content normal. Assessment and Plan: Gregg is here today for jaw pain. His pain seems most consistent with TMJ dysfunction. We discussedconservative management for this, including exercises at home. Given he had a CRP checked last month that was normal, and his symptoms are not suggestive of GCA, will defer further lab testing at this time. No evidence of bruxism or need for oral bicarb, nor is there any evidence of infection in the ear or mouth. #TMJ - Discussed exercises to do at home - F/u in clinic if any worsening of symptoms * Tomas Salgado MD - 01/18/2021 10:00 AM EDT Ken Mckeon is a 75 y.o. who presents for an urgent visit due to earache. Starting yesterday developed left sided jaw pain just anterior to the ear, radiating into the ear and down into the jaw. This morning the pain is improved. His ear exam is normal. - conservative treatment for left TMJ, improved The case was discussed at the time of the visit. I have reviewed the history, physical exam, assessment, and plan with the resident. The assessment and plan were formulated in discussion with me and I agree with them as documented, except as detailed in my attestation. I was present in the same building as the patient and provider at the time of the visit. documented in this encounter Plan of Treatment Upcoming Encounters Date Type Department Care Team (Late st Contact Info) Description 12/15/2024 11:30 AM EDT Office [place] [address] Charline Ziegler MD [facility] [place] [address] documented as of this encounter Visit Diagnoses Diagnosis TMJ (temporomandibular joint disorder) Temporomandibular joint disorders, unspecified documented in this encounter Care Teams Early Years Teacher Relationship Specialty Start Date End Date Reji Adams MD [facility] [place] [address] PCP - General General Internal Medicine 07/13/15 documented as of this encounter
--- OUTSIDE RECORDS SUMMARY | 2024-07-09 11:10 | XMS_ITS | Encounter Summary ---
Author Organization [facility] [place] [address] Care Team Providers Care Safety Inspector Name Role Phone Reji Adams MD Primary Care Provider [phone] Encounter Details Date Type Department Care Team (Late st Contact Info) Description 10/16/2020 11:00 AM EDT Tech [place] [phone] Mary Mireles Varicose veins of right lower extremity with pain Social History Tobacco Use Types [...] 11:30 AM EDT Office [place] [phone] Charline Ziegler MD [facility] [place] [address] documented as of this encounter Procedures Procedure Name Priority Date/Time Associated Diagnosis Comments UNLATERAL VALVULAR INCOMP Routine 10/16/2020 10:48 AM EDT Varicose veins of right lower extremity with pain documented in this encounter Results * LE Unilateral Valvular Incomp Study (10/16/2020 10:48 AM EDT) VB Text Report Department: Vascular Surgery Lab Patient: [id number] (KEN COLE) CPT: 16530 ICD10: I83.811 Referring Physician: QIAN KRISHNAN ?? Phone: Indications: tenderness to the right hamstring area upon sitting for the past month, hx varicose veins and vein stripping, ? reflux Patient Positioning: ??Reverse Trendelenburg ICD10 Diagnosis Code: I83.811 Findings: Right ?Reflux? ?? Common Femoral Vein ??Reflux ?? Femoral Vein ? Reflux ?? Popliteal ?Reflux ?? Interpretation: RIGHT: There is reflux in the [...] by the patient. Patent varicose vein with reflux (1.4 seconds) noted along the medial thigh. This varicosity appears to be a femoral vein tributary at the level of the femoral vein bifurcation and is a new finding compared to the previous exam on 11/07/16. The previously visualized varicosity along the distal lateral thigh is not identified on the current exam. Electronically Signed by: ALFRED PHILLIPS on 2020-10-16 12:26:13 PM VASCUBASE VB Text Report End of Report VASCUBASE 10/16/2020 10:4 8 AM EDT Qian Krishnan [employer] T[employer]ER VASCULAR ORDERAB LES VASCUBASE documented in this encounter Visit Diagnoses Diagnosis Varicose veins of right lower extremity with pain Varicose veins of lower extremities with other complications documented in this encounter Care Teams Safety Inspector Relationship Specialty Start Date End Date Reji Adams MD [facility] [place] [address] PCP - General General Internal Medicine 07/13/15 documented as of this encounter
--- OUTSIDE RECORDS SUMMARY | 2024-07-09 11:10 | XMS_ITS | Encounter Summary ---
Author Organization [facility] Address [facility] [place] [address] Care Team Providers Care Ball Machine Operator Name Role Phone Reji Adams MD Primary Care Provider Reason for Referral * Diagnostic Test (Routine) - Closed Specialty Diagnoses / Procedures Referred By Contac t Referred To Contact Radiology Diagnoses Chronic back pain, unspecified back location, unspecified back pain laterality Procedures MRI Total Spine wwo Contrast MRI Total Spine wo Contrast (Generic) Reji Adams MD [facility] [place] [address] [facility] Rad Mri [address] [place] [address] Referral ID Status Reason Start Date Expiration Date V isits Requested Visits Authorized [id number] Closed Specialty Service Requested 12/01/2020 06/03/2022 1 1 Reason for Visit * Diagnostic Test (Routine) - Closed Specialty Diagnoses / Procedures Referred By Contac t Referred To Contact Radiology Diagnoses Chronic back pain, unspecified back location, unspecified back pain laterality Procedures MRI Total Spine wwo Contrast MRI Total Spine wo Contrast (Generic) Reji Adams MD [facility] [place] [address] [facility] Rad Mri [address] [place] [address] Referral ID Status Reason Start Date Expiration Date V isits Requested Visits Authorized [id number] Closed Specialty Service Requested 12/01/2020 06/03/2022 1 1 Encounter Details Date Type Department Care Team (Latest Contact Info) Description 12/08/2020 3:18 PM EDT - 12/08/2020 11:59 PM EDT Hospital Encounter Radiology MRI at [address] [place] [address] Reji Adams MD [facility] GENERAL INTERNAL MEDICINE [place], [place] [id number] Chronic back pain, unspecified back location, unspecified back pain laterality Discharge Disposition: Home Social History Tobacco Use [...] tablet Take 1 tablet by mouth daily. cyclobenzaprine (Flexeril) 5 mg TabletIndications:Acut e right-sided [...] 11:30 AM EDT Office [place] [address] Charline Ziegler MD [facility] [place] [place] [address] documented as of this encounter Procedures Procedure Name Priority Date/Time Associated Diagnosis Comments MRI TOTAL SPINE WITH/WO CONTRAST Routine 12/08/2020 5:16 PM EDT Chronic back pain, unspecified back location, unspecified back pain laterality documented in this encounter Results * MRI Total Spine wwo Contrast (12/08/2020 5:16 PM EDT) Anatomical Region Laterality Modality C-spine, T-spine, L-spine Magnet ic Resonance Impressions 12/08/2020 5:24 PM EDT No osseous metastatic disease identified in the spine. Thank you for letting us participate in the care of this patient. ??If you are a health care provider and have any questions regarding this report, please contact the number below. ??For patients who have questions please contact the health floor care technician that requested your imaging first. ? Narrative 12/08/2020 5:24 PM EDT EXAMINATION: MRI TOTAL SPINE WWO CONTRAST CLINICAL HISTORY: Prostate cancer, staging TECHNIQUE: MRI of the cervical, thoracic and lumbar spine was performed before and after the intravenous administration of 16cc Dotarem. COMPARISON: Plain films 11/23/2020, MR 12/28/2018, bone scan 02/22/2019, CT 02/04/2020 FINDINGS: Cervical spine: Prior anterior cervical fusion from C3 through C5. There is slight anterolisthesis of C5 on C6. There is no aggressive appearing marrow lesion. There is no abnormal enhancement. Changes of cervical spondylosis are present, with facet arthropathy most pronounced at C5-C6 level. There is slight cord signal alteration on the right at the C4 level associated with volume loss consistent with myelomalacia. Is a small area of cord signal abnormality dorsally at C5 also consistent with myelomalacia. Thoracic spine: Overall thoracic alignment is unremarkable. There is no focal, aggressive appearing marrow lesion. Thoracic cord signal is normal. There is no abnormal enhancement. Moderate canal narrowing at T11-T12 is due to disc bulge and facet arthropathy, with history of slightly altering the contour the cord. There is no cord signal abnormality. Disc degenerative changes are present throughout the midthoracic spine levels without canal stenosis. Lumbar spine: There has been prior instrumented posterior fusion extending from L4 through S1. There is slight retrolisthesis of L2 on L3. The conus is normal in appearance, terminates at L1. No retroperitoneal abnormality identified. There is no focal, aggressive appearing marrow lesion. No severe canal stenosis. There is mild to moderate bilateral foraminal narrowing at L2-3 and L3-4. Procedure Note Ken Hidalgo MD - 12/08/2020 EXAMINATION: MRI TOTAL SPINE WWO CONTRAST CLINICAL HISTORY: Prostate cancer, staging TECHNIQUE: MRI of the cervical, thoracic and lumbar spine was performed before andafter the intravenous administration of 16cc Dotarem. COMPARISON: Plain films 11/23/2020, MR 12/28/2018, bone scan 02/22/2019, CT 02/04/2020 FINDINGS: Cervical spine: Prior anterior cervical fusion from C3 through C5. There is slight anterolisthesis of C5 on C6. There is no aggressive appearing marrowlesion. There is no abnormal enhancement. Changes of cervical spondylosis arepresent, with facet arthropathy most pronounced at C5-C6 level. There is slightcord signal alteration on the right at the C4 level associated with volumeloss consistent with myelomalacia. Is a small area of cord signal abnormality dorsally at C5 also consistent with myelomalacia. Thoracic spine: Overall thoracic alignment is unremarkable. There is nofocal, aggressive appearing marrow lesion. Thoracic cord signal is normal. Thereis no abnormal enhancement. Moderate canal narrowing at T11-T12 is due to discbulge and facet arthropathy, with history of slightly altering the contour thecord. There is no cord signal abnormality. Disc degenerative changes arepresent throughout the midthoracic spine levels without canal stenosis. Lumbar spine: There has been prior instrumented posterior fusion extendingfrom L4 through S1. There is slight retrolisthesis of L2 on L3. The conus isnormal in appearance, terminates at L1. No retroperitoneal abnormalityidentified. There is no focal, aggressive appearing marrow lesion. No severe canalstenosis. There is mild to moderate bilateral foraminal narrowing at L2-3 andL3-4. IMPRESSION No osseous metastatic disease identified in the spine. Thank you for letting us participate in the care of this patient. If youare a health care provider and have any questions regarding this report,please contact the number below. For patients who have questions please contactthe health floor care technician that requested your imaging first. Reji Adams MD IM MRI ORDERABLES documented in this encounter Visit Diagnoses Diagnosis Chronic back pain, unspecified back location, unspecified back pain laterality documented in this encounter Administered Medications Inactive Administered Medications - up to 3 most recent administrations Medication Order MAR Action Action Date Dose Rate Site gadoterate meglumine (Dotarem) (0.5 mMol/mL) injection solution 0-100 mL 0-100 mL, Intravenous, ONCE PRN, 1 dose, Starting on Fri12/08/20 at 1601, Until Fri12/08/20 at 1639, Per Protocol, Radiology Contrast, Routine Given 12/08/2020 4:39 PM EDT 16 mLs documented in this encounter Care Teams Ball Machine Operator Relationship Specialty Start Date End Date Reji Adams MD [facility] [place] [address] PCP - General General Internal Medicine 07/13/15 documented as of this encounter
--- OUTSIDE RECORDS SUMMARY | 2024-07-09 11:10 | XMS_ITS | Encounter Summary ---
Author Organization [facility] [place] [address] Care Team Providers Care Spout Worker Name Role Phone Reji Adams MD Primary Care Provider [phone] Reason for Visit * Reason Onset Date Comments Medication Refill 02/21/2021 Encounter Details Date Type Department Care Team (Late st Contact Info) Description 02/21/2021 Refill Internal Medicine at [address] [address] Reji Adams MD [facility] [place] [address] Anxiety Social History Tobacco Use Types Packs/Day [...] 11:30 AM EDT Office Visit [place] [address] Charline Ziegler MD [facility] [place] [address] documented as of this encounter Visit Diagnoses Diagnosis Anxiety Anxiety state, unspecified documented in this encounter Care Teams Spout Worker Relationship Specialty Start Date End Date Reji Adams MD [facility] [place] [address] PCP - General General Internal Medicine 07/13/15 documented as of this encounter
--- OUTSIDE RECORDS SUMMARY | 2024-07-09 11:10 | XMS_ITS | Encounter Summary ---
Author Organization [facility] [place] [address] Care Team Providers Care Folding Machine Feeder Name Role Phone Reji Adams MD Primary Care Provider Reason for Visit * Reason Onset Date Comments Medication Refill 08/25/2020 Encounter Details Date Type Department Care Team (Late st Contact Info) Description 08/25/2020 Refill Internal Medicine at [address] [address] Reji Adams MD [facility] [place] [address] Social History Tobacco Use Types Packs/Day Years [...] AM EDT Office [place] [address] Charline Ziegler MD [facility] [address] documented as of this encounter Visit Diagnoses Not on filedocumented in this encounter Care Teams Folding Machine Feeder Relationship Specialty Start Date End Date Reji Adams MD [facility] [place] [address] PCP - General General Internal Medicine 07/13/15 documented as of this encounter
--- OUTSIDE RECORDS SUMMARY | 2024-07-09 11:10 | XMS_ITS | Encounter Summary ---
Author Organization [facility] [place] [address] Care Team Providers Care Noc Technician Name Role Phone Reji Adams MD Primary Care Provider [phone] Reason for Visit * Reason Onset Date Comments Medication Refill 01/08/2021 Encounter Details Date Type Department Care Team (Late st Contact Info) Description 01/08/2021 Refill Internal Medicine at [address] [address] Reji Adams MD [facility] GENER[facility] [place] [address] Anxiety Social History Tobacco Use Types Packs/Day [...] 11:30 AM EDT Office Visit [place] [address] Charline Ziegler MD [facility] [place] [address] documented as of this encounter Visit Diagnoses Diagnosis Anxiety Anxiety state, unspecified documented in this encounter Care Teams Noc Technician Relationship Specialty Start Date End Date Reji Adams MD [facility] [place] [address] PCP - General General Internal Medicine 07/13/15 documented as of this encounter
--- OUTSIDE RECORDS SUMMARY | 2024-07-09 11:10 | XMS_ITS | Encounter Summary ---
Author Organization [facility] [address] Care Team Providers Care Infrastructure Consultant Name Role Phone Reji Adams MD Primary Care Provider [phone] Reason for Visit * Reason Onset Date Comments Medication Refill 08/20/2020 Encounter Details Date Type Department Care Team (Late st Contact Info) Description 08/20/2020 Refill Internal Medicine at [address] [address] Reji Adams MD [facility] [place] [address] Anxiety Social History Tobacco Use Types Packs/Day [...] 11:30 AM EDT Office [place] [address] Charline Ziegler MD [facility] [place] [address] documented as of this encounter Visit Diagnoses Diagnosis Anxiety Anxiety state, unspecified documented in this encounter Care Teams Infrastructure Consultant Relationship Specialty Start Date End Date Reji Adams MD [facility] [place] [address] PCP - General General Internal Medicine 07/13/15 documented as of this encounter
--- OUTSIDE RECORDS SUMMARY | 2024-07-09 11:10 | XMS_ITS | Encounter Summary ---
Author Organization [facility] Address [facility] [place] [address] Care Team Providers Care Bacteriology Research Assistant Name Role Phone Reji Adams MD Primary Care Provider [phone] Reason for Visit * Reason Comments Other Gut problems, after I eat it is discomfort, more of an ache; right ear, when I move my jaw it sounds like someone is tapping a drum wiggles ears and it snaps Encounter Details Date Type Department Care Team (Late st Contact Info) Description 08/03/2020 8:40 AM EST Office Visit Internal Medicine at [address] [id number] Reji Adams MD [facility] GENER[facility] [place] [address] Advanced directives, counseling/discussio n; Other acute gastritis without hemorrhage; Eustachian tube dysfunction, right Social History Tobacco Use Types Packs/Day Years [...] Sign Reading Time Taken Comments Blood Pressure 121/77 08/03/2020 8:35 AM EST Pulse 66 08/03/2020 8:35 AM EST Temperature 36.2 ??C (97.1 ??F) 08/03/2020 8 :35 AM EST Respiratory Rate - - Oxygen Saturation 100% 08/03/2020 8:3 5 AM EST Inhaled Oxygen Concentration - - Weight 87.2 kg (192 lb 3.2 oz) 08/03/2020 8:35 AM EST with boots on Height 179.1 cm (5' 10.5) 08/03/2020 8 :35 AM EST approx - patient reported Body Mass Index 27.19 08/03/2020 8:35 AM EST documented in this encounter Patient Instructions * Patient Instructions* Dana Good CCMA - 08/03/2020 8:40 AM EST Please remember to bring or send a copy of your Advance Directive to us here at [facility], so we may save it securely [...] Progress Notes * Reji Adams MD - 08/03/2020 8:40 AM EST ESTABLISHED PATIENT VISIT I. HISTORY a. Reason(s) for Visit: Ken Mckeon 74 y.o. male who presents today due to complaint(s) of: Chief Complaint Patient presents with ??? Other Gut problems, after I eat it is discomfort, more of an ache; right ear, when I move my jaw it sounds like someone is tapping a drum wiggles ears and it snaps b. History of Present Illness:[] Having some abd dicomfort after he eats. Did have a normal upper endoscopy with EUS in February. States is not any specific foods that bothers him. States at times will have a bit of a ache and will make a lot of rumbling. Happens occasionally after he eats. Starts about an hour or two after it starts. Going on for a couple weeks. Weight stable. Has had some joint pains during this period also. Also having a tapping sensation when wiggles ear on the R. Hearing seems to be okay in that ear. c. Review of Systems: Constitutional - no fevers, chills, weight loss or gain, fatigue Cardiovascular - No CP, palpitations, angina, MARTIN, SOB Respiratory - No SOB, MARTIN, wheeze, cough, sputum production HEENT - No diffculty swallowing, hearing, No nasal congestion or postnasal drip Gastrointestinal -see HPI Musculoskeletal - see HPI All other systems negative d. PMH Patient Active Problem List Diagnosis ??? Malignant neoplasm of prostate ??? S/P rotator cuff repair ??? Trigger finger, left ring finger ??? Chronic left shoulder pain ??? Arthritis of right elbow ??? Asymmetrical sensorineural hearing loss ??? Right arm numbness ??? Peripheral neuropathy Diagnosis in progress, decrease in sharp sensation, and vibratory sensation in b/l feet ??? Urinary urgency W/ hesitency, given duration, likely BPH ??? Cervical stenosis of spinal canal ??? Back pain ??? Depression ??? Cervical radiculopathy ??? Insomnia ??? Neck pain ??? Anxiety ??? Varicose veins of legs ??? OA (osteoarthritis) of knee right ??? Cataract extraction status of left eye ??? Status post total knee replacement TKR Right knee in 2007 Soc: Social History Tobacco Use ??? Smoking status: Never Smoker ??? Smokeless tobacco: Current User Types: Chew ??? Tobacco comment: 3 cans/ week. Substance Use Topics ??? Alcohol use: Yes Alcohol/week: 0.0 - 1.0 standard drinks Frequency: Monthly or less Drinks per session: 1 or 2 Comment: 1 drink per month II. PHYSICAL EXAM: BP 121/77 (BP Location (NBP): Left arm, Patient Position: Sitting, BP Cuff Sizes: Adult (25-34 cm)) Pulse 66 Temp 36.2 ??C (97.1 ??F) (Temporal) Ht 179.1 cm (5' 10.5) Comment: approx - patientreported Wt 87.2 kg (192 lb 3.2 oz) Comment: with boots on SpO2 100% BMI 27.19 kg/m?? General - No acute distress, conversing without difficulty. ENT - oropharynx without lesions. Small amount of fluid behind TM R ear. Eyes - EOMI. No scleral icterus Neck - No lymphadenopathy, supple, no masses Abdomen/GI - Soft, nontender, normal active bowel sounds, neg hsm or masses. Extremities - No clubbing, cyanosis or edema. Pulses intact. III. ASSESSMENT/PLAN:Ken Mckeon 74 y.o. male presenting for abdominal discomfort that seems to be perhaps be some gastritis that perhaps related to nsaid. Will trial 2 weeks of omeprazole to see if sxs improve. R ear clicking likely eustachian tube dysfxn. Meds reconciled documented in this encounter Plan of Treatment Upcoming Encounters Date Type Department Care Team (Late st Contact Info) Description 12/15/2024 11:30 AM EDT Office [place] [address] Charline Ziegler MD [facility] [place] [address] documented as of this encounter Visit Diagnoses Diagnosis Advanced directives, counseling/discussion Other specified counseling Other acute gastritis without hemorrhage Eustachian tube dysfunction, right documented in this encounter Care Teams Bacteriology Research Assistant Relationship Specialty Start Date End Date Reji Adams MD [facility] [place] [address] PCP - General General Internal Medicine 07/13/15 documented as of this encounter
--- OUTSIDE RECORDS SUMMARY | 2024-07-09 11:10 | XMS_ITS | Encounter Summary ---
Author Organization [place] [address] Care Team Providers Care Scientific Informatics Project Leader Name Role Phone Reji Adams MD Primary Care Provider [phone] Encounter Details Date Type Department Care Team (Latest Contact Info) Description 11/24/2020 9:40 AM EDT - 11/24/2020 11:59 PM EDT [place] [address] Discharge Disposition: Home Social History Tobacco Use [...] AM EDT Office Visit [place] [address] Charlien Ziegler MD [facility] [place] [address] documented as of this encounter Procedures Procedure Name Priority Date/Time Associated Diagnosis Comments SURGICAL PATHOLOGY REPORT Routine 11/24/2020 9:40 AM EDT documented in this encounter Results * Surgical Pathology Report (11/24/2020 9:40 AM EDT) Final Diagnosis [id number] ? Location: [place] The signing pathologist has (i) examined the relevant preparation(s) for the specimen(s) and (ii) rendered or confirmed the diagnosis(es). . ?Surgical Pathology DIAGNOSIS CONSULTATION CASE Outside slide(s) labeled [id number], collection date 05/18/2019. A) Soft tissue, left neurovascular bundle, ?biopsy: - Benign soft tissue. B) Soft tissue, right neurovascular bundle, biopsy: - Benign soft tissue. C) Lymph node, left pelvice, excision: - Two lymph nodes, ??negative for malignancy. (0/2) D) Lymph node, right pelvic, excision: - Six lymph nodes, ??negative for malignancy. (0/6) E) Soft tissue, preprostatic, biopsy: - Benign adipose tissue. F) Prostate, apex, biopsy: - Benign fibromuscular soft tissue. G) Prostate, radical prostatectomy: ??(See SYNOPTIC REPORT) Electronically signed by: ?MD Orestes, Real Umanzor Verified: ??12/08/2020 10:52 ??Pathologist Performed at: ??-[facility] [place] Dept. of [place]ology, [place], [place] SYNOPTIC Specimen ? Procedure: ??Radical prostatectomy Tumor ? Histologic Type: ??Acinar adenocarcinoma ? Histologic Grade ?Grade Group and Woodstock Score: ??Grade group 5 (Sinan Score 4 + 5 = 9) ?Percentage of Pattern 4: ??45% ?Percentage of Pattern 5: ??35% ? Intraductal Carcinoma (IDC): ??Present ? Tumor Location: ??Predominantly right side ? Tumor Quantitation: ??Estimated percentage of prostate involved by tumor - 10% ? Extraprostatic Extension (EPE): ??Not identified ? Urinary Bladder Neck Invasion: ??Not identified ? Seminal Vesicle Invasion: ??Not identified ? Treatment Effect: ??No known presurgical therapy ? Lymphovascular Invasion: ??Not Identified ? Perineural Invasion: ??Present Margins ? Margins: ??Uninvolved by invasive carcinoma Lymph Nodes ? Number of Lymph Nodes Involved: ??0 ? Number of Lymph Nodes Examined: ??8 Pathologic Stage Classification (pTNM, AJCC 8th Edition) ? Primary Tumor (pT): ??pT2 . SYNOPTIC ? Regional Lymph Nodes (pN): ??pN0 ? CAP eCC August 2019 Annual Release ADDITIONAL STUDIES Whole slide scan: food products sales representative slide(s) SPECIMEN(S) SUBMITTED CONSULTATION CASE A - 50 slide(s) labeled [id number], collection date 05/18/2019. [id number] Report to: [facility] Department of Pathology [address] [place] [address] ??[phone] , ext [phone] CLINICAL INFORMATION N/A SPECIMEN PROCESSING [facility] () ?? pathology slide(s) are reviewed. ??Refer to Diagnosis and Specimen Submitted for specific case information. For the full text of the report(s) please refer to Non- Documentation Pathology in the electronic health record (eDH). 12/08/2020 10:52 AM EDT [facility] Consult Case 11/24/2020 9:40 AM EDT 11/24/2020 9:40 AM EDT Rayo Davis MD PATHOLOGY/CYTOLOGY O [place] Performing Organization Address City/State/[facility] Co de Phone Number [facility] [place] [address] documented in this encounter Visit Diagnoses Not on filedocumented in this encounter Care Teams Scientific Informatics Project Leader Relationship Specialty Start Date End Date Reji Adams MD [facility] GENERAL [place] [address] PCP - General General Internal Medicine 07/13/15 documented as of this encounter
--- OUTSIDE RECORDS SUMMARY | 2024-07-09 11:10 | XMS_ITS | Encounter Summary ---
Author Organization [facility] [place] [address] Care Team Providers Care Saddle Tree Stitcher Name Role Phone Reji Adams MD Primary Care Provider [phone] Encounter Details Date Type Department Care Team (Late st Contact Info) Description 11/10/2020 Telephone Internal Medicine at [address] [address] Rodrigo Delaney Social History Tobacco Use Types Packs/Day Years [...] encounter Miscellaneous Notes * Telephone Encounter - Rodrigo Delaney - 11/10/2020 9:14 AM EDT Pt is scheduled for a nurse AWV on 02/07, but would like to have the visit with his PCP instead. Called to help with rescheduling. LVM documented in this encounter Plan of Treatment Upcoming Encounters Date Type Department Care Team (Late st Contact Info) Description 12/15/2024 11:30 AM EDT Office [place] [address] Charline Ziegler MD [facility] [place] [address] documented as of this encounter Visit Diagnoses Not on filedocumented in this encounter Care Teams Saddle Tree Stitcher Relationship Specialty Start Date End Date Reji Adams MD [facility] [place] [address] PCP - General General Internal Medicine 07/13/15 documented as of this encounter
--- OUTSIDE RECORDS SUMMARY | 2024-07-09 11:10 | XMS_ITS | Encounter Summary ---
Author Organization [facility] [place] [address] Care Team Providers Care Blending Machine Operator Name Role Phone Reji Adams MD Primary Care Provider [phone] Reason for Referral * Consultation (Routine) - Closed Specialty Diagnoses / Procedures Referred By Duglas arizmendi Referred To Contact Vascular Surgery Diagnoses Varicose veins of right lower extremity with pain Qain Krishnan APRN [facility] [address] [place] [address] [facility] [place] [address] [place] [address] Referral ID Status Reason Start Date Expiration Date V isits Requested Visits Authorized [id number] Closed Specialty Service Requested 10/12/2020 10/12/2021 2 2 Reason for Visit * Reason Comments Leg Pain right thigh pain, in back of leg Encounter Details Date Type Department Care Team (Late st Contact Info) Description 10/12/2020 3:30 PM EDT Office Visit Internal Medicine at [address] [address] Qian Krishnan APRN [facility] [address] [place] [address] Varicose veins of right lower extremity with pain; Urinary frequency Social History Tobacco Use Types Packs/Day Years [...] Sign Reading Time Taken Comments Blood Pressure 134/76 10/12/2020 3:29 PM EDT Pulse 74 10/12/2020 3:29 PM EDT Temperature 37 ??C (98.6 ??F) 10/12/2020 3:29 PM EDT Respiratory Rate - - Oxygen Saturation 100% 10/12/2020 3:29 PM EDT Inhaled Oxygen Concentration - - Weight 85.1 kg (187 lb 9.6 oz) 10/12/2020 3:29 P M EDT Height 177.8 cm (5' 10) 10/12/2020 3:29 PM EDT reported Body Mass Index 26.92 10/12/2020 3:29 PM EDT documented in this encounter Progress Notes * JannetQian, MARYBEL - 10/12/2020 3:30 PM EDT Images from the original note were not included. PCP: Reji Adams MD Chief Complaint Patient presents with ??? Leg Pain right thigh pain, in back of leg SUBJECTIVE: Ken Cole is a 75 y.o. male who presents for right thigh and lack leg pain. He reports that henotices it more in the car or a regular chair. He does not notice it with standing or walking. He reports that it has been painful in the last month. He has not noticed any changes. He denies any known trauma to the area. This is different that the right hip bursitis. Review of chart shows that he had it at the outside facility at [facility] on 10/05/20. Urinary frequency- he has had weaker stream and has felt that he is going more frequently for Review of Systems Constitutional: Negative for chills and fever. Respiratory: Negative for cough and shortness of breath. Cardiovascular: Negative for chest pain and palpitations. Musculoskeletal: Positive for myalgias (leg pain). Allergies Allergen Reactions ??? Penicillins Anaphylaxis Tongue swelling ??? Betamethasone hiccups after injection ??? Dexamethasone Hiccups after injection Current Outpatient Medications Medication Sig Dispense Refill ??? ALPRAZolam (Xanax) [...] Take 1 tablet by mouth daily. ??? omeprazole (PriLOSEC) 40 mg Capsule, Delayed Release(E.C.) Take 1 capsule by mouth daily. (Patient not taking: Reported on 10/12/2020) 14 capsule 3 No current facility-administered medications for this visit. Patient Active Problem List Diagnosis Code ??? [...] Z98.890 ??? Malignant neoplasm of prostate C61 OBJECTIVE: There were no vitals filed for this visit. PHYSICAL EXAM: Physical Exam Vitals reviewed. Constitutional: Appearance: He is well-developed. HENT: Head: Normocephalic and atraumatic. Eyes: General: No scleral icterus. Conjunctiva/sclera: Conjunctivae normal. Skin: General: Skin is warm and dry. Neurological: Mental Status: He is alert and oriented to person, place, and time. Psychiatric: Behavior: Behavior normal. Thought Content: Thought content normal. Judgment: Judgment normal. ASSESSMENT & PLAN: Ken was seen today for leg pain. Diagnoses and all orders for this visit: Varicose veins of right lower extremity with pain - Referral to Vascular Surgery - LE Unilateral Valvular Incomp Study; Future - discussed with patient that it may be from hamstring tightness and strain, but he denied any trauma to the area and it has been ongoing for awhile. He does have prominent varicose veins throughout the leg. We will put in referral to vascular and repeat valvular study as it has been almost 4 yearssince last study. If pain improves, he will let us know. Urinary frequency - POCT urine dipstick - he reports urinary frequency, but urine sample was negative for leuks, nitrates and blood. Reassured patient that it was negative. He will continue to monitor his symptoms. - level 2 mask, and face shield were worn during the entire visit and gloves were worn during physical exam. documented in this encounter Plan of Treatment Upcoming Encounters Date Type Department Care Team (Late st Contact Info) Description 12/15/2024 11:30 AM EDT Office Visit [place] [address] Charline Ziegler MD [facility] [place] [address] Scheduled Referrals Name Type Priority Associated Diagnoses Orde r Schedule Referral to Vascular Surgery Outpatient Referral Routine Varicose veins of right lower extremity with pain Ordered: 10/12/2020 documented as of this encounter Procedures Procedure Name Priority Date/Time Associated Diagnosis Comments POCT URINE DIPSTICK Routine 10/12/2020 4 :01 PM EDT Urinary frequency documented in this encounter Results * LE Unilateral Valvular Incomp Study (10/16/2020 10:48 AM EDT) VB Text Report Department: Vascular Surgery Lab Patient: [id number] (KEN COLE) CPT: 40167 ICD10: I83.811 Referring Physician: QIAN KRISHNAN ?? [...] 10/16/2020 10:4 8 AM EDT Qian Krishnan WELL SERVICE FLOOR WORKER VASCULAR ORDERAB LES VASCUBASE * POCT urine dipstick (10/12/2020 4:01 PM EDT) POC Sp [place] 1.015 1.002 - 1.030 POC pH, UA 5 [...] Blood, UA neg Negative - Negative denise/uL 10/12/2020 4:01 PM EDT Qian Krishnan WELL SERVICE FLOOR WORKER POINT OF CARE TE ST ORDERABLES documented in this encounter Visit Diagnoses Diagnosis Varicose veins of right lower extremity with pain Varicose veins of lower extremities with other complications Urinary frequency documented in this encounter Care Teams Blending Machine Operator Relationship Specialty Start Date End Date Reji Adams MD [facility] [place] [place] [address] PCP - General Internal Medicine 07/13/15 documented as of this encounter
--- OUTSIDE RECORDS SUMMARY | 2024-07-09 11:10 | XMS_ITS | Encounter Summary ---
Author Organization [facility] [place] [address] Care Team Providers Care Commercial Real Estate Lender Name Role Phone Reji Adams MD Primary Care Provider [phone] Encounter Details Date Type Department Care Team (Late st Contact Info) Description 09/18/2020 Ancillary Procedure Radiology at [facility] [address] [place] [address] Bright Casanova MD [address] [facility] [address] [address] Social History Tobacco Use Types Packs/Day Years [...] 11:30 AM EDT Office Visit [place] [address] Charline Ziegler MD [facility] [place] [address] documented as of this encounter Procedures Procedure Name Priority Date/Time Associated Diagnosis Comments FILM LIBRARY STORAGE ONLY MR KNEE Routine 09/18/2020 12:00 AM EST documented in this encounter Results * Film Library- Storage Only MR Knee (09/18/2020 12:00 AM EST) Narrative TOMEKA - 03/25/2022 10:24 AM EDT This exam is auto-finalizing. It's purpose is for storage only. Bright Casanova MD IMG FILM LIBRARY ORD ERABLES [place], [place] documented in this encounter Visit Diagnoses Not on filedocumented in this encounter Care Teams Commercial Real Estate Lender Relationship Specialty Start Date End Date Reji Adams MD [facility] [place] [address] PCP - General General Internal Medicine 07/13/15 documented as of this encounter
--- OUTSIDE RECORDS SUMMARY | 2024-07-09 11:10 | XMS_ITS | Encounter Summary ---
Author Organization [facility] Address [facility] [place] [address] Care Team Providers Care Cutting And Printing Machine Operator Name Role Phone Reji Adams MD Primary Care Provider [phone] Reason for Referral * Diagnostic Test (Routine) - Closed Specialty Diagnoses / Procedures Referred By Contac t Referred To Contact Radiology Diagnoses Renal lesion Procedures MRI Abdomen wwo Contrast (Generic) Reji Adams MD [facility] [place] [address] [facility] Rad Mri [address] [place] [address] Referral ID Status Reason Start Date Expiration Date V isits Requested Visits Authorized [id number] Closed Specialty Service Requested 11/30/2020 06/02/2022 1 1 Reason for Visit * Diagnostic Test (Routine) - Closed Specialty Diagnoses / Procedures Referred By Contac t Referred To Contact Radiology Diagnoses Renal lesion Procedures MRI Abdomen wwo Contrast (Generic) Reji Adams MD [facility] [place] [address] [facility] Rad Mri [address] [place] [address] Referral ID Status Reason Start Date Expiration Date V isits Requested Visits Authorized [id number] Closed Specialty Service Requested 11/30/2020 06/02/2022 1 1 Encounter Details Date Type Department Care Team (Latest Contact Info) Description 12/14/2020 7:12 AM EDT - 12/14/2020 11:59 PM EDT Hospital Encounter [facility] [place] [address] Reji Adams MD [facility] [place] [address] Renal lesion Discharge Disposition: Home Social History Tobacco Use [...] EDT Office [place] [address] Charline Ziegler MD [facility] [place] [address] documented as of this encounter Procedures Procedure Name Priority Date/Time Associated Diagnosis Comments MRI ABDOMEN WWO CONTRAST Routine 12/14/2020 8:24 AM EDT Renal lesion documented in this encounter Results * MRI Abdomen wwo Contrast (Generic) (12/14/2020 8:24 AM EDT) Anatomical Region Laterality Modality Abdomen Magnetic Resonan ce Impressions 12/14/2020 10:41 AM EDT Right renal lesion in question corresponds to a Bosniak II right renal cyst requiring no additional imaging follow-up. I have personally reviewed the image(s) and the resident's interpretation and agree with the findings, Tomas Crow, DO at 12/14/2020 10:41 AM Thank you for letting us participate in the care of this patient. ??If you are a health care provider and have any questions regarding this report, please contact the number below. ??For patients who have questions please contact the health care coordination manager that requested your imaging first. ? Narrative 12/14/2020 10:41 AM EDT EXAMINATION: MRI ABDOMEN WWO CONTRAST (GENERIC) CLINICAL HISTORY: 75-year-old male with right renal mass seen on CT. Indeterminate renal lesion. ??Need for further characterization. TECHNIQUE: MRI of the abdomen was performed with images obtained prior to and following the intravenous administration of 17ml Dotarem. COMPARISON: Correlation is made to CT chest, abdomen and pelvis dated 11/30/2020 FINDINGS: Editorial Cartoonist Images: Not provided. Right Kidney/ureter: 1.6 cm cystic lesion within the interpolar cortex demonstrating homogenous T2 hyperintense/T1 hypointense signal intensity. No enhancing components. ??There is suggestion of a few faint internal septations. Additional smaller T2 hyperintense/T1 hypointense nonenhancing cysts are present. No hydronephrosis. Left Kidney/ureter: Subcentimeter T2 hyperintense/T1 hypointense nonenhancing simple cysts are present. No hydronephrosis. Lower chest: Normal. Liver: Normal size and signal intensity. Numerous subcentimeter T2 hyperintense/T1 hypointense tense, nonenhancing cysts are present. Bile ducts: Nondilated. Gallbladder: No gallstones. Normal caliber wall. 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 Normal caliber pancreatic duct. Spleen: Normal. Adrenals: Normal. Vasculature: No aneurysm. Lymph nodes: No enlarged lymph nodes. Bowel: Nondilated, no inflammatory changes. Peritoneum and mesentery: No ascites or loculated fluid collection. Marrow Signal: Normal. Procedure Note Tomas Crow DO - 12/14/2020 EXAMINATION: MRI ABDOMEN WWO CONTRAST (GENERIC) CLINICAL HISTORY: 75-year-old male with right renal mass seen on CT. Indeterminate renal lesion. Need for further characterization. TECHNIQUE: MRI of the abdomen was performed with images obtained prior toand following the intravenous administration of 17ml Dotarem. COMPARISON: Correlation is made to CT chest, abdomen and pelvis dated11/30/2020 FINDINGS: Editorial Cartoonist Images: Not provided. Right Kidney/ureter: 1.6 cm cystic lesion within the interpolar cortex demonstrating homogenous T2 hyperintense/T1 hypointense signal intensity.No enhancing components. There is suggestion of a few faint internalseptations. Additional smaller T2 hyperintense/T1 hypointense nonenhancing cysts are present. No hydronephrosis. Left Kidney/ureter: Subcentimeter T2 hyperintense/T1 hypointensenonenhancing simple cysts are present. No hydronephrosis. Lower chest: Normal. Liver: Normal size and signal intensity. Numerous subcentimeter T2 hyperintense/T1 hypointense tense, nonenhancing cysts are present. Bile ducts: Nondilated. Gallbladder: No gallstones. Normal caliber wall. 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 Normal caliber pancreaticduct. Spleen: Normal. Adrenals: Normal. Vasculature: No aneurysm. Lymph nodes: No enlarged lymph nodes. Bowel: Nondilated, no inflammatory changes. Peritoneum and mesentery: No ascites or loculated fluid collection. Marrow Signal: Normal. IMPRESSION Right renal lesion in question corresponds to a Bosniak II right renalcyst requiring no additional imaging follow-up. I have personally reviewed the image(s) and the resident's interpretationand agree with the findings, Tomas Crow DO at 12/14/2020 10:41 AM Thank you for letting us participate in the care of this patient. If youare a health care provider and have any questions regarding this report,please contact the number below. For patients who have questions please contactthe health care coordination manager that requested your imaging first. Reji Adams MD IMG MRI ORDERABLES documented in this encounter Visit Diagnoses Diagnosis Renal lesion Unspecified disorder of kidney and ureter documented in this encounter Administered Medications Inactive Administered Medications - up to 3 most recent administrations Medication Order MAR Action Action Date Dose Rate Site gadoterate meglumine (Dotarem) (0.5 mMol/mL) injection solution 0-100 mL 0-100 mL, Intravenous, ONCE PRN, 1 dose, Starting on Alice 12/14/20 at 0808, Until Alice 12/14/20 at 0808, Per Protocol, Radiology Contrast, Routine Given 12/14/2020 8:08 AM EDT 17 mLs documented in this encounter Care Teams Cutting And Printing Machine Operator Relationship Specialty Start Date End Date Reji Adams MD [facility] [place] [address] PCP - General General Internal Medicine 07/13/15 documented as of this encounter
--- OUTSIDE RECORDS SUMMARY | 2024-07-09 11:10 | XMS_ITS | Encounter Summary ---
Author Organization [facility] Address [facility] [place] [address] Care Team Providers Care Director Of Operations For Therapy Name Role Phone Reji Adams MD Primary Care Provider [phone] Encounter Details Date Type Department Care Team (Latest Contact Info) Description 09/21/2020 1:00 PM EST Laboratory Appointment Laboratory at [facility] [place] [address] S/P prostatectomy Social History Tobacco Use Types [...] 11:30 AM EDT Office [place] [address] Charline Ziegler MD [facility] [place] [address] documented as of this encounter Procedures Procedure Name Priority Date/Time Associated Diagnosis Comments HC PROSTATE SPECIFIC AG SCREENING Routine 09/21/2020 12:59 PM EST S/P prostatectomy documented in this encounter Results * PSA Screen (09/21/2020 12:59 PM EST) PSA Screen 0.08 0.00 - 4.00 ng/mL [facility] Comment: PLEASE NOTE: The above reference interval is intended for healthy males with an intact prostate. Values within this reference interval may indicate recurrence in men who have undergone radical prostatectomy. Blood specimen (specimen) 09/21/2020 12:59 PM EST 09/21/2020 2:23 PM EST Narrative Resulting Agency Comment Spec In Lab Rigo Rocha MD CHEMISTRY ORDERABLES Performing Organization Address City/State/[facility] Co de Phone Number [facility] [address] [place] [address] documented in this encounter Visit Diagnoses Diagnosis S/P prostatectomy Other postprocedural status documented in this encounter Care Teams Director Of Operations For Therapy Relationship Specialty Start Date End Date Reji Adams MD [facility] [place] [address] PCP - General General Internal Medicine 07/13/15 documented as of this encounter
--- OUTSIDE RECORDS SUMMARY | 2024-07-09 11:10 | XMS_ITS | Encounter Summary ---
Author Organization [facility] [place] [address] Care Team Providers Care Ore Dressing Engineer Name Role Phone Reji Adams MD Primary Care Provider [phone] Encounter Details Date Type Department Care Team (Late st Contact Info) Description 11/21/2020 Orders Only [place] [address] Rayo Davis MD Malignant neoplasm of prostate Social History Tobacco [...] AM EDT Office Visit [place] [address] Charline Ziegler MD [facility] [place] [address] documented as of this encounter Results * Testosterone, total (01/08/2021 11:29 AM EDT) Testosterone 6.52 1.93 - 7.40 ng/mL [facility] Comment: Pediatric Reference Ranges: [...] In Lab Rayo Davis MD CHEMISTRY ORDERABLES [facility] [place] [address] * PSA (Ultrasensitive) (01/08/2021 11:29 AM EDT) Pathologist [facility] Prostate Specific Antigen (Ultrasensitive ) 0.14 0.00 - 4.00 ng/mL [facility] Comment: PLEASE NOTE: The above reference interval is intended for healthy males with an intact prostate. Values within this reference interval may indicate recurrence in men who have undergone radical prostatectomy. Blood 01/08/2021 11:2 9 AM EDT 01/08/2021 1:19 PM EDT Narrative Resulting Agency Comment Spec In Lab Rayo Davis MD CHEMISTRY ORDERABLES [facility] [place] [address] * Comprehensive metabolic panel (non-fasting) (01/08/2021 11:29 AM EDT) [facility] Glucose 92 65 - 199 mg/dL [facility] Comment:Diabetes: >=200 mg/d L plus symptoms Blood Urea Nitrogen 14 10 - 20 mg/dL [facility] Creatinine 1.02 0.80 - 1.50 mg/dL [facility] Sodium 140 135 - 145 mmol/L [facility] Potassium 4.5 3.5 - 5.0 mmol/L [facility] Comment: Please note: ??Patients with WBC >100,000 may have falsely elevated Potassium levels. ??For accurate Potassium quantification in these patients send serum separator tube (gold top) for subsequent determinations. ??Contact the Clinical Chemistry Laboratory if there are any questions. Chloride 104 98 - 107 mmol/L [facility] Carbon Dioxide 29 22 - 31 mmol/L [facility] Anion Gap 7 5 - 15 mmol/L [facility] Calcium 9.6 8.5 - 10.5 mg/dL [facility] Protein, Total 7.0 6.1 - 8.0 gm/dL [facility] Albumin 4.6 3.2 - 5.2 gm/dL [facility] Aspartate Aminotransferase 21 0 - 39 unit/L [facility] Alanine Aminotransferase 15 0 - 55 unit/L [facility] Alkaline Phosphatase 64 40 - 130 unit/L [facility] Bilirubin, Total 1.0 0.2 - 1.3 mg/dL [facility] Est Glomerular Filtration Rate 72 >=60 mL/min/1. 73 m?? [facility] Comment: This patient? s estimated [...] In Lab Rayo Davis MD CHEMISTRY ORDERABLES [facility] [place] [address] documented in this encounter Visit Diagnoses Diagnosis Malignant neoplasm of prostate documented in this encounter Care Teams Ore Dressing Engineer Relationship Specialty Start Date End Date Reji Adams MD [facility] [place] [address] PCP - General General Internal Medicine 07/13/15 documented as of this encounter
--- OUTSIDE RECORDS SUMMARY | 2024-07-09 11:10 | XMS_ITS | Encounter Summary ---
Author Organization [facility] Address [facility] [place] [address] Care Team Providers Care Lacquer Sprayer Name Role Phone Reji Adams MD Primary Care Provider [phone] Reason for Referral * Diagnostic Test (Routine) - Closed Specialty Diagnoses / Procedures Referred By Contac t Referred To Contact Radiology Diagnoses Renal lesion Procedures MRI Abdomen wwo Contrast (Generic) Reji Adams MD [facility] [place] [address] [facility] Rad Mri [address] [facility] [place] [address] Referral ID Status Reason Start Date Expiration Date V isits Requested Visits Authorized [id number] Closed Specialty Service Requested 11/30/2020 06/02/2022 1 1 Encounter Details Date Type Department Care Team (Late st Contact Info) Description 11/30/2020 Orders Only Internal Medicine at [address] [id number] Reji Adams MD [facility] [place] [address] Renal lesion Social History Tobacco Use Types Packs/Day Years [...] 11:30 AM EDT Office [place] [address] Charline Ziegler MD [facility] [place] [place] [address] documented as of this encounter Results * MRI Abdomen wwo Contrast (Generic) (12/14/2020 8:24 AM EDT) Anatomical Region Laterality Modality Abdomen Magnetic Resonan ce Impressions 12/14/2020 10:41 AM EDT Right renal lesion in question corresponds to a Bosniak II right renal cyst requiring no additional imaging follow-up. I have personally reviewed the image(s) and the resident's interpretation and agree with the findings, Tomas Crow DO at 12/14/2020 10:41 AM Thank you for letting us participate in the care of this patient. ??If you are a health care provider and have any questions regarding this report, please contact the number below. ??For patients who have questions please contact the health rn progressive care that requested your imaging first. ? [...] chest, abdomen and pelvis dated 11/30/2020 FINDINGS: Traffic Control Specialist Images: Not provided. Right Kidney/ureter: 1.6 cm [...] CT chest, abdomen and pelvis dated11/30/2020 FINDINGS: Traffic Control Specialist Images: Not provided. Right Kidney/ureter: 1.6 cm [...] who have questions please contactthe health rn progressive care that requested your imaging first. Reji Adams MD IMG MRI ORDERABLES documented in this encounter Visit Diagnoses Diagnosis Renal lesion Unspecified disorder of kidney and ureter Renal lesion Unspecified disorder of kidney and ureter documented in this encounter Care Teams Lacquer Sprayer Relationship Specialty Start Date End Date Reji Adams MD [facility] [place] [address] PCP - General General Internal Medicine 07/13/15 documented as of this encounter
--- OUTSIDE RECORDS SUMMARY | 2024-07-09 11:10 | XMS_ITS | Encounter Summary ---
Author Organization [facility] [place] [address] Care Team Providers Care Solder Sprayer Name Role Phone Reji Adams MD Primary Care Provider [phone] Encounter Details Date Type Department Care Team (Late st Contact Info) Description 09/06/2020 Ancillary Procedure Radiology at [facility] [address] [place] [address] Bright Casanova MD [address] [address] Social History Tobacco Use Types Packs/Day Years [...] 11:30 AM EDT Office [place] [address] Charline Ziegler MD [facility] [place] [address] documented as of this encounter Procedures Procedure Name Priority Date/Time Associated Diagnosis Comments FILM LIBRARY STORAGE ONLY NUCLEAR MEDICINE Routine 09/06/2020 12:00 AM EST documented in this encounter Results * Film Library- Storage Only nuclear medicine (09/06/2020 12:00 AM EST) Narrative TOMEKA - 03/25/2022 10:24 AM EDT This exam is auto-finalizing. It's purpose is for storage only. Bright Casanova MD IMG FILM LIBRARY ORD ERABLES [place], [place] documented in this encounter Visit Diagnoses Not on filedocumented in this encounter Care Teams Solder Sprayer Relationship Specialty Start Date End Date Reji Adams MD [facility] GENER[place] [address] PCP - General General Internal Medicine 07/13/15 documented as of this encounter
--- OUTSIDE RECORDS SUMMARY | 2024-07-09 11:10 | XMS_ITS | Encounter Summary ---
Author Organization [facility] [place] [address] Care Team Providers Care Surgical Appliances Salesperson Name Role Phone Reji Adams MD Primary Care Provider [phone] Reason for Visit * Reason Onset Date Comments Appointment 11/09/2020 Encounter Details Date Type Department Care Team (Late st Contact Info) Description 11/09/2020 Telephone Internal Medicine at [address] [address] Ernestine Diehl Appointment Social History Tobacco Use Types Packs/Day Years [...] encounter Miscellaneous Notes * Telephone Encounter - Ernestine Diehl - 11/09/2020 3:32 PM EDT Message: Ken calling in states he was given the option to schedule AWV with Reji Adams MDor one the nurses. States he has changed his mind and is wondering if can see him for theappt on 02/07/21 instead. This agent offered soonest available appt with PCP but pt declined. Please call pt back to discuss. Ask caller their first and last name and relationship to the patient: Ken Best time to call back: any Ok to leave a message: y Ok to [facility] message: n Offered Appointment: yes, declined MA/Nurse/Chief Diversity Officer contacted via: Message: y Call: n Pager: n documented in this encounter Plan of Treatment Upcoming Encounters Date Type Department Care Team (Late st Contact Info) Description 12/15/2024 11:30 AM EDT Office [place] [address] Charline Ziegler MD [facility] [place] [address] documented as of this encounter Visit Diagnoses Not on filedocumented in this encounter Care Teams Surgical Appliances Salesperson Relationship Specialty Start Date End Date Reji Adams MD [facility] [place] [address] PCP - General General Internal Medicine 07/13/15 documented as of this encounter
--- OUTSIDE RECORDS SUMMARY | 2024-07-09 11:10 | XMS_ITS | Encounter Summary ---
Author Organization [facility] Address [facility] [place] [address] Care Team Providers Care Feed Inspection Supervisor Name Role Phone Reji Adams MD Primary Care Provider [phone] Reason for Visit * Reason Comments Back Pain Encounter Details Date Type Department Care Team (Late st Contact Info) Description 11/30/2020 4:23 AM EDT - 11/30/2020 8:14 AM EDT [place] [address] Frankie Gerardo MD [facility] [place] [address] Huan Rees MD [facility] [place] [address] Thoracic back pain, unspecified back pain laterality, [...] Sign Reading Time Taken Comments Blood Pressure 119/63 11/30/2020 8:10 AM EDT Pulse 62 11/30/2020 4:42 AM EDT Temperature 36.6 ??C (97.9 ??F) 11/30/2020 4:42 AM ED T Respiratory Rate 14 11/30/2020 8:10 AM EDT Oxygen Saturation 99% 11/30/2020 8:10 AM EDT Inhaled Oxygen Concentration - - Weight 81.6 kg (180 lb) 11/30/2020 4:31 AM EDT Height 179.1 cm (5' 10.5) 11/30/2020 4:31 AM ED T Body Mass Index 25.46 11/30/2020 4:31 AM EDT documented in this encounter Discharge Instructions * Discharge Instructions* Geraldo Dickens IV - 11/30/2020 7:25 AM EDT You were seen today for back pain. All of your lab work and CT scan was normal. We discussed that the CT scan had an incidental finding on your right kidney, see below for details. This is something that you should follow-up with your PCP regarding to schedule the ultrasound or MRI. Regarding your back pain, please call your spinal surgeon as we discussed, and continue to take ibuprofen and Tylenol for the next few days. Please take all of your medications as scheduled. You can take acetaminophen (Tylenol) for pain. Take 650-1000 mg every six hours as needed. Do not exceed 4000 mg per day. You can take ibuprofen (Advil, Motrin) for pain. Take 600-800 mg every six hours as needed for pain. Do not exceed 2400 mg per day. Incidental CT scan finding: A 1.4 cm soft tissue density lesion in the interpolar cortex of the right kidney (series 13 image 105, series 10 image 121). This lesion is only visualized on the arterial phase and is beyond the [id number] on noncontrast images. Follow-up renal sonogram versus renal MRI with and without contrast is recommended. Return the Emergency room if you experience chest pain, difficulty breathing, loss of consciousness, fevers over 100.4F or any other concerns. * Attachments The following attachments cannot be sent through Care Everywhere. * Back Care Basics: General Info (Nepali) documented in this encounter Medications at Time [...] as of this encounter ED Notes * Bernie Ponce RN - 11/30/2020 8:13 AM EDT Exit via ambulation w/ steady gait. * Bernie Ponce RN - 11/30/2020 8:11 AM EDT Pt verbalized understanding of d/c instructions. Denies questions and concerns. * Bernie Ponce RN - 11/30/2020 7:[address] Dickens at bedside to reassess pt and review d/c instructions. * Bernie Ponce RN - 11/30/2020 7:45 AM EDT Pt w/o s/s distress. States back pain worsens when lying flat (pt sitting in bed). States I'm ready to go. * Bernie Ponce RN - 11/30/2020 6:55 AM EDT Care assumed. * Frankie Santos RN - 11/30/2020 6:20 AM EDT Pt ambulated well to and from CT, Pt had a steady gait. * Geraldo Dickens IV - 11/30/2020 6:17 AM EDT ED RESIDENT FOLLOW-UP NOTE: Time of transfer of care: 0600 Care transferred from: Dr. Hurley Condition at time of transfer: stable Clinical Summary: 75 y.o. old male in the process of being evaluated for back pain. Please see Dr. Hurley's notes for initial evaluation, assessment and plan. Briefly, patient presenting with thoracic back pain, pending CTA to rule out aortic. No urinary incontinence, inflammatory markers negative, no history of fevers or chills. No focal weakness or numbness. Subsequent ED Course: ED Course as of November 30 0735 Alice November 30, 2020 0652 BP: 123/73 0652 Temp: 36.6 ??C (97.9 ??F) 0652 Heart Rate: 62 0652 Resp: 12 0652 SpO2: 100 % 0652 CBC (with Diff)(!) 0652 Basic Metabolic Panel (non-fasting) 0652 CRP: <3.0 0652 Troponin-T: <0.01 0652 Sed Rate(!): <3 0652 Lipase: 38 0652 Hepatic Function Panel 0652 I independently evaluated the patient, the patient is feeling much better than when he came in, has now had Tylenol and Toradol. The patient was able to independently move off of the bed, sit upwithout any pain or discomfort. The patient states that his tearing-like pain began several days ago and 0653 covers the middle part of his back from his shoulder blades to his lower back, and he has taken Flexeril per PCP instructions without significant change although he feels more tired. He attributes the tiredness to the medication. We spoke regarding her concerns for possible aortic dissection, and reviewed his lab work which does not show any abnormalities, I also added on LFTs and lipase which are negative. The patient is urinating spontaneously, denies any dysuria or frequency. Also denies incontinence. The patient agreed that once CT scan imaging was done, we would discuss discharge home, and he would follow-up with his catalog specialist in addition to his PCP. 0723 Reviewed CTA of patient's chest and abdomen which does not demonstrate any aortic pathology, however there is an unexpected finding that I discussed with the patient, lesion on his right kidney 0723 A 1.4 cm soft tissue density lesion in the interpolar cortex of the right kidney (series 13 image 105, series 10 image 121). This lesion is only visualized on the arterial phase and is beyond the [id number] on noncontrast images. Follow-up renal sonogram versus renal MRI with and without contrast is recommended. 0735 Reviewed EKG, consistent with prior EKGs, normal sinus rhythm, bifascicular block present, no arrhythmia EKG 12 Lead We discussed the patient's incidental CT finding, and patient agreed to follow- up with PCP regarding further work-up of his right renal lesion. He will follow up with his spine surgeon regarding his back pain, and continue to take ibuprofen and Tylenol as. Patient be discharged home at this time. Return precautions were discussed. Geraldo Dickens IV, MD Resident 11/30/20 0736 Associated attestation - Huan Rees MD - 12/06/2020 12:39 PM EDT ED ATTENDING ADDENDUM: The patient was seen in conjunction with Dr. Dickens, the resident physician. I have independently performed [...] plan as described in the resident note above. * Frankie Geradro MD - 11/30/2020 5:32 AM EDT ED Attending Brief Note HPI: Ken Mckeon is a 75 y.o. male who presents to the Emergency Department for evaluation for midthoracic pain. He states that he has had pain in this area intermittently for approximately 1 to 2 weeks, substantially worse for the last 2 days. He notes that at times this is worse in the mornings, and that takes him as long as 45 minutes to get out of bed. This is made worse by movements, and when it occurs is also made worse by deep breaths. He does not have any dyspnea. He denies fevers. He haschronic bilateral lower extremity neurologic findings from prior surgeries, but denies any new neurologic complaints today. He does not have any known traumatic injury mechanism. Symptoms have been unrelieved by Flexeril at home. He describes the pain as at times like a spasm, but also as though something is tearing. Pain localizes to area between scapulae, worse on R than L, both spinal and paraspinal. Review of Systems Pertinent positives and negatives are included in the HPI, otherwise at least ten systems were reviewed and negative. Past Medical and Surgical Histories, Social History, Medications, Allergies were reviewed in the chart. Vitals: ED Triage Vitals [11/30/20 0431] BP: 123/73 Heart Rate: 62 Resp: 12 Temp: 36.6 ??C (97.8 ??F) Temp src: Oral SpO2: 100 % O2 Device: RA O2 Flow Rate (L/min): n/a Physical Exam NAD, uncomfortable with movement Spine nontender, no stepoffs, mild paraspinal tenderness in R lumbar region which patient states does not reproduce his symptoms. No muscle spasms or deformities appreciated. CTAB RRR no mgr, 2+ bilat radial pulses Abd nontender ED Course: Differential diagnosis includes musculoskeletal back pain, TAA, aortic dissection, spinal epidural abscess, metastatic prostate cancer (previously treated but recently rising PSA). Plan: Given description of pain is tearing, with distinct characteristic from any prior back pain patient experienced, and per my record review no prior imaging of thoracic aorta, we will obtain imaging of the thoracic aorta. Prior CT reviewed and patient does not have any known AAA. Low suspicion for epidural abscess given absence of infectious symptoms; however, given lack of diagnostic clarity, will obtain CRP and ESR as a screen. Frankie Gerardo MD 11/30/20 0536 * Javid Hurley MD - 11/30/2020 5:16 AM EDT Ken Mckeon is an 75 y.o. male who presents to the ED with: Chief Complaint Patient presents with ??? Back Pain I saw this patient 11/30/2020 at ~ 6:24 AM HPI Ken Mckeon is a 75 y.o. male who presents to the Emergency Department with complaints of back pain. The patient states for the past two weeks he has been having a mid back pain that usually develops after laying down. He states that it at times takes him 40 minutes to get up due to this pain. After he stands up and starts walking for a bit he states that this pain does seem to resolve. Patient describes the pain as at times tearing type pain as well as something that moves back and forth across the back from has lower scapular to his waist. Patient states it feels like something is shifting inside of his body. Patient denies any new numbness, weakness, tingling, loss of bowel or bladdercontrol, fever, trauma. The patient states that he has a loss of weight recently but has been over a long period of time. Patient has a history of prostate cancer that had previously been in remission but states that he is recently had a PSA recently been rising and is going to be dealing with urology and will likely start treatment soon. He denies any fevers, nausea, vomiting, syncope, chest pain. Social History Socioeconomic History ??? Marital status: Spouse name: None ??? Number of children: 3 ??? Years of education: None ??? Highest education level: None Occupational History ??? Occupation: retired Tobacco Use ??? Smoking status: Never Smoker ??? Smokeless tobacco: Current User Types: Chew ??? Tobacco comment: 3 cans/ week. Substance and Sexual Activity ??? Alcohol use: Yes Alcohol/week: 0.0 - 1.0 standard drinks Comment: 1 drink per month ??? Drug use: No ??? Sexual activity: Yes Partners: Female Other Topics Concern ??? Do You live alone? Not Asked ??? Tobacco in Home Not Asked Social History Narrative ??? None Social Determinants of Health Financial Resource Strain: ??? Difficulty of Paying Living Expenses: Food Insecurity: ??? Worried About Running Out of Food in the Last Year: ??? Ran Out of Food in the Last Year: Transportation Needs: ??? Lack of Transportation (Medical): ??? Lack of Transportation (Non-Medical): Physical Activity: ??? Days of Exercise per Week: ??? Minutes of Exercise per Session: Stress: ??? Feeling of Stress : Social Connections: ??? Frequency of Communication with Friends and Family: ??? Frequency of Social Gatherings with Friends and Family: ??? Attends Denominational Services: ??? Active Member of Clubs or Organizations: ??? Attends Club or Organization Meetings: ??? Marital Status: Intimate Partner Violence: ??? Fear of Current or Ex-Partner: ??? Emotionally Abused: ??? Physically Abused: ??? Sexually Abused: Review of Systems: Review of Systems Constitutional: Negative for chills and fever. HENT: Negative for trouble swallowing and voice change. Eyes: Negative for photophobia and visual disturbance. Respiratory: Negative for cough, chest tightness and shortness of breath. Cardiovascular: Negative for chest pain and palpitations. Gastrointestinal: Negative for abdominal pain, constipation, diarrhea, nausea and vomiting. Genitourinary: Negative for difficulty urinating and dysuria. Musculoskeletal: Positive for back pain. Negative for neck pain and neck stiffness. Skin: Negative for rash and wound. Neurological: Negative for dizziness, light-headedness, numbness and headaches. Psychiatric/Behavioral: Negative for confusion and decreased concentration. Vital Signs: Patient Vitals for the past 24 hrs: BP Temp Temp src Pulse Resp SpO2 Height Weight 11/30/20 0442 123/73 36.6 ??C (97.9 ??F) -- 62 12 100 % -- -- 11/30/20 0431 123/73 36.6 ??C (97.8 ??F) Oral 62 12 100 % 179.1 cm (5' 10.5) 81.6 kg (180 lb) I have reviewed the vital signs, which demonstrates Physical Exam: Physical Exam Constitutional: General: He is not in acute distress. Appearance: Normal appearance. He is normal weight. He is not ill-appearing. HENT: Head: Normocephalic and atraumatic. Eyes: Conjunctiva/sclera: Conjunctivae normal. Pupils: Pupils are equal, round, and reactive to light. Cardiovascular: Rate and Rhythm: Normal rate and regular rhythm. Pulmonary: Effort: Pulmonary effort is normal. No respiratory distress. Abdominal: General: Abdomen is flat. Tenderness: There is no abdominal tenderness. Musculoskeletal: General: No swelling or tenderness. Cervical back: Normal range of motion and neck supple. No tenderness or bony tenderness. Thoracic back: No tenderness or bony tenderness. Lumbar back: No bony tenderness. Comments: Right lumbar paraspinal tenderness Skin: General: Skin is warm and dry. Capillary Refill: Capillary refill takes less than 2 seconds. Neurological: General: No focal deficit present. Mental Status: He is alert and oriented to person, place, and time. Psychiatric: Mood and Affect: Mood normal. Behavior: Behavior normal. ED Course: - Patient was evaluated and discussed with Dr. Gerardo - Medications, allergies and past medical history reviewed - Nursing notes and vital signs reviewed - Medications and fluid administered: Medications ketorolac (Toradol) (15 mg/mL) injection 15 mg (15 mg Intravenous Not Given 11/30/20 8934) acetaminophen (Tylenol) tablet 1,000 mg (1,000 mg Oral Given 11/30/20 0520) iohexoL (Omnipaque) (350 mg/mL) injection solution 0-200 mL (60 mLs Intravenous Given 11/30/20 0611) - I have reviewed the labs, which are significant for: Recent Results (from the past 24 hour(s)) CRP, acute inflammation Result Value Ref Range CRP <3.0 <=4.9 mg/L Basic Metabolic Panel (non-fasting) Result Value Ref Range Glucose Lvl 91 65 - 199 mg/dL BUN 16 10 - 20 mg/dL Creatinine 1.01 0.80 - 1.50 mg/dL Sodium 140 135 - 145 mmol/L Potassium 4.5 3.5 - 5.0 mmol/L Chloride 104 98 - 107 mmol/L CO2 29 22 - 31 mmol/L Anion Gap 7 5 - 15 mmol/L Calcium 9.1 8.5 - 10.5 mg/dL Estimated GFR 73 >=60 mL/min/1.73 m?? Troponin Result Value Ref Range Troponin-T <0.01 0.00 - 0.00 ng/mL Hemogram Result Value Ref Range WBC 5.1 4.0 - 9.5 x10(3)/mcL RBC 4.54 (L) 4.58 - 5.54 x10(6)/mcL Hemoglobin 13.7 13.7 - 16.5 gm/dL Hematocrit 40.8 40.5 - 48.5 % MCV 89.9 82.9 - 93.1 fL MCH 30.2 27.5 - 32.1 pg MCHC 33.6 32.0 - 35.7 gm/dL Platelets 155 145 - 357 x10(3)/mcL RDWSD 46.4 (H) 36.0 - 45.0 fL RDWCV 14.0 (H) 11.4 - 13.8 % MPV 9.5 7.6 - 12.9 fL nRBC % Auto 0.0 % nRBC Abs Auto 0.000 0.000 - 0.000 x10(3)/mcL Differential, Automated Result Value Ref Range Neutrophils % 47.8 % Neutr Abs (ANC) 2.45 1 - 6 x10(3)/mcL Lymphocytes % 42.7 % Lymphocytes Abs 2.2 0.9 - 3.2 x10(3)/mcL Monocytes % 6.4 % Monocyte Abs 0.3 0.3 - 0.9 x10(3)/mcL Eosinophils % 2.3 % Eosinophils Abs 0.1 0.0 - 0.4 x10(3)/mcL Basophils % 0.6 % Basophils Abs 0.0 0.0 - 0.1 x10(3)/mcL Immature Gran % 0.20 % Mahsa Gran Abs 0.01 0.00 - 0.04 x10(3)/mcL Blue Tube HOLD Result Value Ref Range Blue Hold Sample in lab. - I have reviewed the imaging, which is significant for: CT Angiogram Chest Abdomen w Contrast (Results Pending) Assessment and Plan: MDM: Ken Mckeon is a 75 y.o. male who presents to the Emergency Department with complaints of back pain. Patient presented hemodynamically stable no signs of acute distress. Is unclear the etiology of the patient's pain is at this time. The patient does not have any obvious infectious symptoms or risk factors including denying any history of IV drug use. The patient has no midline spinal tenderness on physical exam or other signs of rash. Bony mets were considered due to his recent rediagnosis of prostate cancer but the fact that he has no midline spinal tenderness makes this unlikely. That the patient describes this as a tearing type back pain raise the concern for potential aortic dissection. A CT angiogram of the chest was obtained. The patient has no physicalexam findings or history that raises a concern for a cauda equina. The patient was given Toradol, Tylenol and labs were drawn to assess for inflammatory markers. Patient was handed off to the day team pending results of the CT angiogram. If the patient's labs and CT imaging returns negative then the patient will likely be able to be discharged home following appropriate pain control with follow-up with his primary care physician. Plan: -Disposition pending CT angiogram of the chest Javid Hurley MD EM Resident, PGY-2 11/30/20 6:24 AM Javid Hurley MD Resident 11/30/20 0625 Associated attestation - Frankie Gerardo MD - 11/30/2020 6:29 AM EDT I was the supervising physician for this patient. I was present for the enrique portions of the serviceprovided by the resident, independently evaluated and examined the patient, and participated in allaspects of their medical decision- making process during my shift. Please see my separate supervisory note for details of my independent evaluation and examination. documented in this encounter Miscellaneous Notes * ED Triage - Frankie Santos RN - 11/30/2020 4:39 AM EDT HPI (Adult) Stated Reason for Visit: Pt haveinf lower back pain that differes from his usual back pain. Pt denies falls, trauma, loss of continence, numbness or tinginling. History Obtained From: patient Duration (Weeks): 2 documented in this encounter Plan of Treatment Upcoming Encounters Date Type Department Care Team (Late st Contact Info) Description 12/15/2024 11:30 AM EDT Office Visit [place] [address] Charline Ziegler MD [facility] [place] [address] documented as of this encounter Procedures Procedure Name Priority Date/Time Associated Diagnosis Comments EKG 12-LEAD STAT 11/30/2020 7:28 AM EDT URINALYSIS WITH REFLEX CULTURE STAT 11/30/2020 6:[address] ANGIOGRAM OF CHEST AND ABDOMEN W CONTRAST STAT 11/30/2020 6:11 AM EDT HC C-REACTIVE PROTEIN STAT 11/30/2020 5:42 AM EDT HEMOGRAM STAT 11/30/2020 5:42 AM EDT DIFFERENTIAL, AUTOMATED STAT 11/30/2020 5:42 AM EDT BLUE TUBE HOLD STAT 11/30/2020 5:42 AM EDT HC ESR-SEDIMENTATION RATE, BLOOD STAT 11/30/2020 5:42 AM EDT HC CBC,PLT & AUTO DIFF STAT 11/30/2020 5:42 AM EDT HC TROPONIN T STAT 11/30/2020 5:42 AM EDT LIPASE STAT 11/30/2020 5:42 AM EDT HEPATIC FUNCTION PANEL STAT 11/30/2020 5:42 AM EDT BASIC METABOLIC PANEL STAT 11/30/2020 5:42 AM EDT documented in this encounter Results * EKG 12 Lead (11/30/2020 7:28 AM EDT) Ventricular rate 59 BPM MUSE SYSTEM Atrial Rate 59 BPM MUSE SYSTEM P-R Interval 186 ms MUSE SYSTEM QRS Duration 162 ms MUSE SYSTEM Q-T Interval 458 ms MUSE SYSTEM QTC Calculated (Bezet) 453 ms MUSE SYSTEM Calculated P [place] 66 degrees MUSE SYSTEM Calculated R [place] -67 degrees MUSE SYSTEM Calculated T [place] 28 degrees MUSE SYSTEM INTERPRETATION Sinus bradycardia Right bundle branch block Left anterior fascicular block Bifascicular block Minimal voltage criteria for LVH, may be normal variant Abnormal ECG When compared with ECG of 17-MAY-2020 15:45, No significant change was found Confirmed by fellow Дмитрий Sim ([id number]) on 11/30/2020 11:38:44 AM Confirmed by MD HARRY SALVATORE ([id number]) on 12/01/2020 8:28:30 AM MUSE SYSTEM 11/30/2020 7:28 AM EDT 12/01/2020 8:28 AM EDT Huan Rees MD ECG ORDERABLES MUSE SYSTEM * Urinalysis with reflex Culture (11/30/2020 6:41 AM EDT) Glucose, Urine Dipstick Negative Negative mg/dL [facility] Protein, Urine Dipstick Negative Negative mg/dL [facility] Bilirubin, Urine Dipstick Negative Negative mg/dL [facility] Comment: Clinical correlation required for positive Urine Bilirubin results as false positive may occur with some drugs and drug related products. If a false positive is suspected a serum total bilirubin should be considered if clinically indicated. Urobilinogen, Urine Dipstick Normal Normal mg/dL [facility] pH, Urn (dipstick) 5.0 5.0 - 8.0 [facility] Blood, Urine Dipstick Negative Negative mg/dL [facility] Ketone, Urine Dipstick Negative Negative mg/dL [facility] Nitrite, Urine Dipstick Negative Negative [facility] Leukocytes, Urine Dipstick Negative Negative [facility] Appearance, Urine Dipstick Clear Clear [facility] Specific [place] Urine Automated 1.011 1.006 - 1.030 [facility] Color, Urine Dipstick Yellow Yellow [facility] Reflex to Culture No [facility] Urine specimen (specimen) 11/30/2020 6:41 AM EDT 11/30/2020 7:23 AM EDT Narrative Resulting Agency Comment Spec In Lab Huan Rees MD URINE ORDERABLES [facility] [place] [address] * (ABNORMAL) CT Angiogram Chest Abdomen w Contrast (11/30/2020 6:11 AM EDT) Anatomical Region Laterality Modality Abdomen, Chest Computed Tomogra phy Impressions 11/30/2020 7:15 AM EDT 1. ??No aortic dissection. 2. ??No acute cardiopulmonary or intra-abdominal pathology. 3. ??A 1.4 cm soft tissue density lesion in the interpolar cortex of the right kidney (series 13 image 105, series 10 image 121). This lesion is only visualized on the arterial phase and is beyond the [id number]-lz-[id number] on noncontrast images. Follow-up renal sonogram versus renal MRI with and without contrast is recommended. UNEXPECTED FINDING. Preliminary report signed by: Dev Robin at 11/30/2020 6:41 AM I have personally reviewed the image(s) and the resident's interpretation and agree with the findings, Sher Lorenzo MD at 11/30/2020 7:15 AM Thank you for letting us participate in the care of this patient. ??If you are a health care provider and have any questions regarding this report, please contact the number below. ??For patients who have questions please contact the health livestock caretaker that requested your imaging first. ? Electronically signed by: Sher Lorenzo MD, [facility] ([phone]), at 11/30/2020 7:15 AM I, Sher Lorenzo, discussed the final impression with Dr. Huan Rees on 11/30/2020 at 0715 hours and verified that he understood these results. Narrative 11/30/2020 7:15 AM EDT EXAMINATION: CT ANGIOGRAM CHEST ABDOMEN W CONTRAST CLINICAL HISTORY: Thoracic, tearing pain for two weeks, worse the past two days. TECHNIQUE: Helical CT angiogram of the chest and abdomen was performed following the intravenous administration of contrast. Administered 60.0 ml of OMNIPAQUE 350.00 mg/ml. Maximum intensity projection (MIP) were reformatted. 3-D images were generated on an independent workstation. COMPARISON: CT abdomen and pelvis 02/04/2020 and 08/31/2013 FINDINGS: VASCULAR FINDINGS Heart: Normal size. Moderate coronary artery calcification. Thoracic aorta: No stenosis or aneurysm. Minimal atherosclerotic plaque at the descending arch. Great vessel origins: Normal three-vessel configuration. No stenosis. Pulmonary arteries: No central filling defects. Abdominal aorta: No stenosis or aneurysm. Atherosclerotic plaques in the infrarenal abdominal aorta. Celiac axis: Widely patent. SMA: Widely patent at the origin. Splenic artery arises from the proximal SMA. Right renal artery: Widely patent. Left renal artery: Widely patent. KING: patent. Right: Common iliac artery: Minimal plaques without hemodynamically significant stenosis. External iliac artery: Partially visualized segment is widely patent. Internal iliac artery: Partially visualized segment is widely patent. Left: Common iliac artery: Atherosclerotic plaques without hemodynamically significant stenosis. External iliac artery: Partially visualized segment is widely patent. Internal iliac artery: Partially visualized segment is widely patent. NON-VASCULAR FINDINGS Lungs and large airways: Sub-2mm calcified granulomas in the apical segment of the right lower lobe. Patent airways. No endobronchial lesion. Pleura: No pleural effusion or pneumothorax. Lymph nodes: No thoracic adenopathy. Mediastinum and edi: Normal. Liver: Normal size and attenuation without lesions. Bile ducts: Nondilated. Gallbladder: No calcified gallstones. Normal caliber wall. Pancreas: Normal. Spleen: Normal. Adrenals: Normal. Kidneys: Symmetric nephrograms. A 1.4 cm soft tissue density lesion in the interpolar cortex of the right kidney (series 13 image 105, series 10 image 121). Lymph Nodes: No enlarged lymph nodes. Bowel: Nondilated. No wall thickening. Significant stool burden through the visualized portions of the colon. Peritoneum and mesentery: No ascites, free air, or loculated fluid collection. No mesenteric inflammation. Osseous structures: Diffuse osteopenia. No acute osseous abnormality. Multilevel degenerative changes in the spine. Resulting Agency Comment Unexpected Finding Frankie Gerardo MD IMG CT ORDERABLES * Lipase (11/30/2020 5:42 AM EDT) Lipase 38 0 - 60 unit/L [facility] Blood specimen (specimen) Venous Draw / Unknown 11/30/2020 5:42 AM EDT 11/30/2020 5:55 AM EDT Narrative Resulting Agency Comment Spec In Lab Geraldo Dickens IV, MD CHEMISTRY ORDERABLE S [facility] [place] [address] * Hepatic Function Panel (11/30/2020 5:42 AM EDT) Protein, Total 6.1 6.1 - 8.0 gm/dL [facility] Albumin 4.1 3.2 - 5.2 gm/dL [facility] Aspartate Aminotransferase 16 0 - 39 unit/L [facility] Alanine Aminotransferase 9 0 - 55 unit/L [facility] Alkaline Phosphatase 54 40 - 130 unit/L [facility] Bilirubin, Total 0.5 0.2 - 1.3 mg/dL [facility] Bilirubin, Direct 0.2 0.0 - 0.3 mg/dL [facility] Blood specimen (specimen) Venous Draw / Unknown 11/30/2020 5:42 AM EDT 11/30/2020 5:55 AM EDT Narrative Resulting Agency Comment Spec In Lab Geraldo Dickens IV, MD CHEMISTRY ORDERABLE S Performing Organization Address City/[facility]/ZIP Co de Phone Number [facility] [place] [address] * Blue Tube HOLD (11/30/2020 5:42 AM EDT) Blue Hold Sample in lab. [facility] Blood specimen (specimen) Venous Draw / Unknown 11/30/2020 5:42 AM EDT 11/30/2020 5:54 AM EDT Javid Hurley MD HEMATOLOGY ORDERABL ES Performing Organization Address City/[facility]/ZIP Co de Phone Number [facility] [place] [address] * Differential, Automated (11/30/2020 5:42 AM EDT) Neutrophil % 47.8 % [facility] Neutrophil Absolute 2.45 1.70 - 6.10 x10(3)/[facility] Lymph % 42.7 % [facility] Lymphocytes Abs 2.2 0.9 - 3.2 x10(3)/[facility] Monocyte % 6.4 % [facility] Monocyte Abs 0.3 0.3 - 0.9 x10(3)/[facility] Eos % 2.3 % [facility] Eosinophils Abs 0.1 0.0 - 0.4 x10(3)/[facility] Basophil % 0.6 % [facility] Baso Absolute 0.0 0.0 - 0.1 x10(3)/[facility] Immature Gran % 0.20 % [facility] Comment: Immature granulocytes(IG's)percentage and absolute count will include metamyelocytes, myelocytes, and promyelocytes. Blood smears from CBCs yielding IG's will be scanned manually for concordance. If this scan disagrees with the automated IG or if promyelocytes are noted, a manual differential will be performed. Immature Gran Absolute 0.01 0.00 - 0.04 x10(3)/[facility] Blood specimen (specimen) 11/30/2020 5:42 AM EDT 11/30/2020 5:53 AM EDT Narrative Resulting Agency Comment Spec In Lab Javid Hurley MD HEMATOLOGY ORDERABL ES [facility] [place] [address] * (ABNORMAL) Hemogram (11/30/2020 5:42 AM EDT) White Blood Cell 5.1 4.0 - 9.5 x10(3)/ L [facility] Red Blood Cell 4.54(L) 4.58 - 5.54 x10(6)/ L [facility] Hemoglobin 13.7 13.7 - 16.5 gm/dL [facility] Hematocrit 40.8 40.5 - 48.5 % [facility] Mean Cell Volume 89.9 82.9 - 93.1 fL [facility] Mean Cell Hemoglobin 30.2 27.5 - 32.1 pg [facility] Mean Cell Hemoglobin Concentration 33.6 32.0 - 35.7 gm/dL [facility] Platelet 155 145 - 357 x10(3)/mc L [facility] RDW Standard Deviation 46.4(H) 36.0 - 45.0 fL [facility] RDW coefficient of variation 14.0(H) 11.4 - 13.8 % [facility] Mean Platelet Volume 9.5 7.6 - 12.9 fL [facility] NRBC% auto 0.0 % [facility] NRBC Absolute 0.000 0.000 - 0.000 x10(3)/mc L [facility] Blood specimen (specimen) 11/30/2020 5:42 AM EDT 11/30/2020 5:53 AM EDT Narrative Resulting Agency Comment Spec In Lab Javid Hurley MD HEMATOLOGY ORDERABL ES Performing Organization Address City/State/[facility] Co de Phone Number [facility] [place] [address] * Troponin (11/30/2020 5:42 AM EDT) Troponin-T <0.01 0.00 - 0.00 ng/mL [facility] Comment: The 99th percentile for Troponin T is less than 0.01 ng/mL, any detectable cTnT concentration using this assay should be considered elevated. According to the third universal definition of myocardial infarction the following criteria with a clinical presentation consistent with acute myocardial ischemia meets the diagnosis for a myocardial infarction ([place]). Detection of a rise and/or fall of cTnT, with at least one value greater than the 99th percentile (> or = 0.01) and with at least one of the following ?? Symptoms of ischemia ?? New or presumed new significant OF-zbyabsk-P wave (ST-T) changes or new left bundle branch block (LBBB) ?? Development of pathologic Q waves in the ECG ?? Imaging evidence of new loss of viable myocardium or new regional wall motion abnormality ?? Identification of an intracoronary thrombus by angiography or autopsy Samples for cTnT testing should be obtained serially upon first assessment and again 3 to 6 hours later. If the clinical suspicion is high and previous samples have been negative an additional sample may be indicated. Reference: Third [place] Definition of Myocardial Infarction. Journal of the [place] [employer] 2012;60:1581-98 Blood specimen (specimen) 11/30/2020 5:42 AM EDT 11/30/2020 5:53 AM EDT Narrative Resulting Agency Comment Spec In Lab Frankie Gerardo MD CHEMISTRY ORDERABLES [facility] [place] [address] * Basic Metabolic Panel (non-fasting) (11/30/2020 5:42 AM EDT) Glucose 91 65 - 199 mg/dL [facility] Comment:Diabetes: >=200 mg/d L plus symptoms Blood Urea Nitrogen 16 10 - 20 mg/dL [facility] Creatinine 1.01 0.80 - 1.50 mg/dL [facility] Sodium 140 135 - 145 mmol/L [facility] Potassium 4.5 3.5 - 5.0 mmol/L [facility] Comment: Please note: ??Patients with WBC >100,000 may have falsely elevated Potassium levels. ??For accurate Potassium quantification in these patients send serum separator tube (gold top) for subsequent determinations. ??Contact the Clinical Chemistry Laboratory if there are any questions. Chloride 104 98 - 107 mmol/L [facility] Carbon Dioxide 29 22 - 31 mmol/L [facility] Anion Gap 7 5 - 15 mmol/L [facility] Calcium 9.1 8.5 - 10.5 mg/dL [facility] [...] in addition to eGFR. Blood specimen (specimen) 11/30/2020 5:42 AM EDT 11/30/2020 5:53 AM EDT Narrative Resulting Agency Comment Spec In Lab Frankie Gerardo MD CHEMISTRY ORDERABLES Performing Organization Address [facility] Co de Phone Number [facility] [place] [address] * CRP, acute inflammation (11/30/2020 5:42 AM EDT) C-Reactive Protein <3.0 <=4.9 mg/L [facility] Blood specimen (specimen) 11/30/2020 5:42 AM EDT 11/30/2020 5:53 AM EDT Narrative Resulting Agency Comment Spec In Lab Frankie Gerardo MD CHEMISTRY ORDERABLES Performing Organization Address [facility] Co de Phone Number [facility] [place] [address] * (ABNORMAL) Sedimentation rate (11/30/2020 5:42 AM EDT) Sedimentation Rate Automated <3(L) 3 - 46 mm/hr [facility] Comment: Effective July 07, 2019 new capillary photometric technology has resulted in a change in reference ranges. It is recommended that each ESR result be reviewed with its own age appropriate reference range. Blood specimen (specimen) 11/30/2020 5:42 AM EDT 11/30/2020 5:53 AM EDT Narrative Resulting Agency Comment Spec In Lab Frankie Gerardo MD HEMATOLOGY ORDERABLE S Performing Organization Address City/[facility]/ZIP [place] [address] documented in this encounter Visit Diagnoses Diagnosis Thoracic back pain, unspecified back pain laterality, unspecified chronicity documented in this encounter Administered Medications Inactive Administered Medications - up to 3 most recent administrations Medication Order MAR Action Action Date Dose Rate Site acetaminophen (Tylenol) tablet 1,000 mg 1,000 mg, Oral, ONCE, 1 dose, On Alice 11/30/20 at 0520, Maximum dose of acetaminophen is 4000 mg from all sources in 24 hours. When ordered for pain, acetaminophen should be given even when other ordered pain medications are indicated. , STAT Given 11/30/2020 5:20 AM EDT 1,000 mg iohexoL (Omnipaque) (350 mg/mL) injection solution 0-200 mL 0-200 mL, Intravenous, ONCE PRN, 1 dose, Starting on Alice 11/30/20 at 0601, Until Alice 11/30/20 at 0611, Per Protocol, Warning Vesicant/Irritant Medication , Radiology Contrast, Routine Given 11/30/2020 6:11 AM EDT 60 mLs ketorolac (Toradol) (15 mg/mL) injection 15 mg 15 mg, Intramuscular, ONCE, 1 dose, On [place] 11/30/20 at 0520, Routine Given 11/30/2020 5:20 AM EDT 15 mg documented in this encounter Active and Recently Administered Medications Times are shown in EDT. Scheduled Medication Order 11/28/2020 11/29/2020 11/30/2020 acetaminophen (Tylenol) tablet 1,000 mg (COMPLETED) 1,000 mg, Oral, ONCE, 1 dose, On Alice 11/30/20 at 0520, Maximum dose of acetaminophen is 4000 mg from all sources in 24 hours. When ordered for pain, acetaminophen should be given even when other ordered pain medications are indicated. , STAT 0520 (Given - Provid er: Frankie Santos RN) ketorolac (Toradol) (15 mg/mL) injection 15 mg (CANCELED) 15 mg, Intramuscular, ONCE, 1 dose, On Alice 11/30/20 at 0520, Routine 0520 (Given - Provid er: Frankie Santos RN - Comment: order was D/cd after admin) ketorolac (Toradol) (15 mg/mL) injection 15 mg 15 mg, Intravenous, ONCE, 1 dose, On [place] 11/30/20 at 0534, Routine 0534 (Not Given - Pr ovider: Frankie Santos RN - Reason: See comment - Comment: see IM comment) PRN Medication Order 11/28/2020 11/29/2020 11/30/2020 iohexoL (Omnipaque) (350 mg/mL) injection solution 0-200 mL (COMPLETED) 0-200 mL, Intravenous, ONCE PRN, 1 dose, Starting on Alice 11/30/20 at 0601, Until [place] 11/30/20 at 0611, Per Protocol, Warning Vesicant/Irritant Medication , Radiology Contrast, Routine 0611 (Given - Provid er: Cyndi Alvarado) documented in this encounter Care Teams Feed Inspection Supervisor Relationship Specialty Start Date End Date Reji Adams MD [facility] [place] [address] PCP - General General Internal Medicine 07/13/15 documented as of this encounter
--- OUTSIDE RECORDS SUMMARY | 2024-07-09 11:10 | XMS_ITS | Encounter Summary ---
Author Organization [facility] Address [facility] [place] [address] Care Team Providers Care Curtain Inspector Name Role Phone Reji Adams MD Primary Care Provider [phone] Encounter Details Date Type Department Care Team (Latest Contact Info) Description 11/23/2020 9:21 AM EDT - 11/23/2020 11:59 PM EDT Hospital Encounter XRay at [address] [place] [address] Tomas Salgado MD [facility] [place] [address] Acute right-sided low back pain without sciatica Discharge Disposition: Home Social History Tobacco Use [...] 11:30 AM EDT Office [place] [address] Charline Ziegler MD [facility] [place] [address] documented as of this encounter Procedures Procedure Name Priority Date/Time Associated Diagnosis Comments XR RIBS RIGHT Routine 11/23/2020 9:57 AM EDT Acute right-sided low back pain without sciatica XR THORACIC SPINE 2 VIEW INCLUDING SWIMMERS VIEW Routine 11/23/2020 9:57 AM EDT Acute right-sided low back pain without sciatica documented in this encounter Results * XR Thoracic Spine [...] questions please contact the health director of patient care that requested your imaging first. [...] have questions please contactthe health director of patient care that requested your imaging first. Tomas Salgado [...] questions please contact the health director of patient care that requested your imaging first. ? Procedure [...] have questions please contactthe health director of patient care that requested your imaging first. Tomas Salgado MD IMG DX ORDERABLES documented in this encounter Visit Diagnoses Diagnosis Acute right-sided low back pain without sciatica documented in this encounter Care Teams Curtain Inspector Relationship Specialty Start Date End Date Reji Adams MD [facility] [place] [address] PCP - General General Internal Medicine 07/13/15 documented as of this encounter
--- OUTSIDE RECORDS SUMMARY | 2024-07-09 11:11 | XMS_ITS | Encounter Summary ---
Author Organization [facility] Address [facility] [place] [address] Care Team Providers Care Linoleum Mechanic Name Role Phone Reji Adams MD Primary Care Provider [phone] Reason for Visit * Reason Comments Annual Wellness Visit No specific concer ns Encounter Details Date Type Department Care Team (Late st Contact Info) Description 02/01/2020 11:20 AM EDT Office Visit Internal Medicine at [address] [address] Reji Adams MD [facility] [place] [address] Anxiety; Malignant neoplasm of prostate; Weight loss; Constipation, unspecified constipation type; Wellness examination; Oropharyngeal dysphagia; DH PATIENT NOT SEEN Social History Tobacco Use [...] Sign Reading Time Taken Comments Blood Pressure 123/61 02/01/2020 11:30 AM EDT Pulse 66 02/01/2020 11:30 AM EDT Temperature 37 ??C (98.6 ??F) 02/01/2020 11: 30 AM EDT Respiratory Rate - - Oxygen Saturation 100% 02/01/2020 11: 30 AM EDT Inhaled Oxygen Concentration - - Weight 85.8 kg (189 lb 3.2 oz) 02/01/2020 11:30 AM EDT with shoes on Height 181.6 cm (5' 11.5) 02/01/2020 1 1:30 AM EDT with shoes on Body Mass Index 26.02 02/01/2020 11:30 AM EDT documented in this encounter Progress Notes * Reji Adams MD - 02/01/2020 11:20 AM EDT Pt left without being seen documented in this encounter Plan of Treatment Upcoming Encounters Date Type Department Care Team (Late st Contact Info) Description 12/15/2024 11:30 AM EDT Office [place] [address] Charline Ziegler MD [facility] [place] [address] documented as of this encounter Visit Diagnoses Diagnosis Anxiety Anxiety state, unspecified Malignant neoplasm of prostate Weight loss Loss of weight Constipation, unspecified constipation type Wellness examination Oropharyngeal dysphagia Dysphagia, oropharyngeal phase DH PATIENT NOT SEEN documented in this encounter Care Teams Linoleum Mechanic Relationship Specialty Start Date End Date Reji Adams MD [facility] [place] [address] PCP - General General Internal Medicine 07/13/15 documented as of this encounter
--- OUTSIDE RECORDS SUMMARY | 2024-07-09 11:11 | XMS_ITS | Encounter Summary ---
Author Organization [facility] Address [facility] [place] [address] Care Team Providers Care Light Rail Train Operator Name Role Phone Reji Adams MD Primary Care Provider [phone] Encounter Details Date Type Department Care Team (Late st Contact Info) Description 01/25/2020 11:00 AM EDT - 01/25/2020 12:05 PM EDT Surgery [place] [address] Michlele Camarillo MD [facility] [place] [address] COLONOSCOPY, POLYPECTOMY, REMOVAL LESION BY SNARE (WRVU 4.57) Social History Tobacco Use Types Packs/Day Years [...] Sign Reading Time Taken Comments Blood Pressure 105/58 01/25/2020 12:05 PM EDT Pulse 54 01/25/2020 12:05 PM EDT Temperature 36.9 ??C (98.5 ??F) 01/25/2020 10:28 AM E DT Respiratory Rate 15 01/25/2020 12:05 PM EDT Oxygen Saturation 100% 01/25/2020 12:05 PM EDT Inhaled Oxygen Concentration - - Weight 82.6 kg (182 lb) 01/25/2020 10:28 AM EDT Height - - Body Mass Index 25.62 12/22/2019 10:12 AM EDT documented in this encounter Discharge Instructions * Discharge Instructions* Eusebia Ordoñez RN - 01/25/2020 12:58 PM EDT Upper Endoscopy (EGD) and Colonoscopy: What to Expect at Home Your Recovery After you have an EGD and colonoscopy, you will stay at the clinic for 1 to 2 hours until the medicines wear off. Then you can go home. But you will need to arrange for a ride. Your doctor will tell you when you can eat and do your other usual activities. Your doctor will talk to you about when you will need your next colonoscopy. Your doctor can help you decide how often you need to be checked. This will depend on the results of your test and your risk for colorectal cancer. You may have a sore throat for a day or two after the test. After the test, you may be bloated or have gas pains. You may need to pass gas. If a biopsy was done or a polyp was removed, you may have streaks of blood in your stool (feces) for a few days. Problems such as heavy rectal bleeding may notoccur until several weeks after the test. This isn't common. But it can happen after polyps are latasha akash. This care sheet gives you a general idea about how long it will take for you to recover. But each person recovers at a different pace. Follow the steps below to get better as quickly as possible. How can you care for yourself at home? Activity ?? Rest when you feel tired. ?? You can do your normal activities when it feels okay to do so. Diet ?? Follow your doctor's directions for eating. ?? Unless your doctor has told you not to, drink plenty of fluids. This helps to replace the fluidsthat were lost during the colon prep. ?? Do not drink alcohol. Medicines If you have a sore throat the day after the test, use an umxc-kyj-iuckjxm spray or lozenges to numbyour throat. Warm salt water gargles can also help the discomfort. Your doctor will tell you if and when you can restart your medicines. He or she will also give you instructions about taking any new medicines. ?? If you take blood thinners, such as warfarin (Coumadin), clopidogrel (Plavix), or aspirin, be sure to talk to your doctor. He or she will tell you if and when to start taking those medicines again. Make sure that you understand exactly what your doctor wants you to do. ?? If polyps were removed or a biopsy was done during the test, your doctor may tell you not to take aspirin or other anti-inflammatory medicines for a few days. These include ibuprofen (Advil, Motrin) and naproxen (Aleve). Other instructions for patients who received sedation: You may have received medications during the procedure which effect your judgement and reaction time. For your safety, do not drive or operate machinery until the medicine wears off and you can think clearly. Your doctor may tell you not to drive or operate machinery until the day after your test. Do not sign legal documents or make major decisions until the medicine wears off and you can think clearly. The anesthesia can make it hard for you to fully understand what you are agreeing to. Be careful on stairs and when standing up quickly as you may be unsteady on your feet. IV site: Slight redness or tenderness is normal. You can use a warm compress if you would like. If tenderness and/or redness increase or if foul drainage occurs, please contact your doctor. Please call [phone] before 8pm Mon-Fri with problems, questions, or concerns. If you call after 8pm or on weekends, call the Hospital at [phone] and ask for the Dialysis Technician validation manager and the ad terminal makeup operator will contact that person for you. When should you call for help? Call [phone] anytime you think you may need emergency care. For example, call if: ?? You passed out (lost consciousness). ?? You pass maroon or bloody stools. ?? You have trouble breathing. Call your doctor now or seek immediate medical care if: ?? You have pain that does not get better after you take pain medicine. ?? You are sick to your stomach or cannot drink fluids. ?? You have new or worse belly pain. ?? You have blood in your stools. ?? You have a fever. ?? You cannot pass stools or gas. ?? Your throat still hurts after a day or two. ?? Your throat still hurts after a day or two. ?? Watch closely for changes in your health, and be sure to contact your doctor if you have any problems. Where can you learn more? You can view health information on [employer], your personal patient account. Log in or sign up today. Content Version: 12.2 ?? 4791-4763 [employer]. Care instructions adapted under license by [facility]. If you have questions about a medical condition or this instruction, always ask your healthcare professional. [employer] disclaims any warranty or liability for your use of this information. documented in this encounter Medications at Time of Discharge Medication Sig Dispensed Refills Start Date End Date acetaminophen (TYLENOL) 650 mg Tablet Sustained Release Take 650 mg by mouth every 8 hours as needed for Pain. Do not exceed 6 tabs in 24 hours multivitamin (THERAGRAN) tablet Take 1 tablet by mouth daily. tadalafiL (CIALIS) 5 mg Tablet Take 5 mg by mouth as needed for Erectile Dysfunction. 03/17/2023 sildenafiL (VIAGRA) 100 mg Tablet Take 100 mg by mouth as needed for Erectile Dysfunction. 08/03/2020 ALPRAZolam (Xanax) 0.25 mg TabletIndications:Anxie ty Take 1 tablet by mouth 3 times daily as needed for Anxiety. 90 tablet 12/13/2019 01/31/2020 meloxicam (MOBIC) 7.5 mg Tablet Take 1 tablet by mouth daily. 30 tablet 11 10/22/2019 05/17/2020 pravastatin (Pravachol) 20 mg Tablet Take 1 tablet by mouth daily. 90 tablet 3 08/26/2019 08/25/2020 BORON ORAL Take by mouth daily. 020 MALCOLM EXTRACT ORAL Take by mouth. 11/09/19 23 aspirin 81 mg Tablet, Delayed Release (E.C.) Take 81 mg by mouth daily. 03/17/2023 Saw Ventress 500 mg capsule Take 500 mg by mouth daily. 03/14/2020 documented as of this encounter H&P Notes * Michelle Camarillo MD - 01/25/2020 11:03 AM EDT Gastroenterology and Hepatology Pre-Procedure History and Physical Exam Procedure: EGD: Colonoscopy: Indication: weight loss PROBLEM LIST Patient Active Problem List Diagnosis Code ??? 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 Cataract extraction status of left eye Z98.42 ??? OA (osteoarthritis) of knee M17.10 ??? Lightheadedness R42 ??? 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 Anxiety F41.9 ??? Neck pain M54.2 ??? Insomnia G47.00 ??? Cervical radiculopathy M54.12 ??? Left shoulder pain M25.512 ??? Depression F32.9 ??? Back pain M54.9 ??? Cervical stenosis of spinal canal M48.02 ??? Peripheral neuropathy G62.9 ??? Numbness R20.0 ??? Urinary urgency R39.15 ??? Right hand pain M79.641 ??? Right arm numbness R20.0 ??? Shoulder pain, bilateral M25.511, M25.512 ??? Left ear pain H92.02 ??? 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 Chronic left shoulder pain M25.512, G89.29 ??? 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 Trigger finger, left ring finger M65.342 ??? S/P rotator cuff repair Z98.890 ??? Malignant neoplasm of prostate C61 MEDICATIONS No current facility-administered medications on file prior to encounter. Current Outpatient Medications on File Prior to Encounter Medication Sig Dispense Refill ??? multivitamin (THERAGRAN) tablet Take 1 tablet by mouth daily. ??? Saw Ventress 500 mg capsule Take 500 mg by mouth daily. PHYSICAL EXAM: GEN: Alert, cooperative, pleasant and in NAD HEENT: Airway examined, oropharyngeal clear without lesions Mallampati Score: II (soft palate, uvula, fauces visible) Neck: Supple, no lymphadenopathy or masses LUNGS: Clear to auscultation HEART: Regular rate and rhythm, normal S1, S2 ABDOMEN: Normal bowel sounds, soft, non tender, non distended EXT: No clubbing, cyanosis or edenoma NEURO: No focal deficits RECENT LABS No results found for this or any previous visit (from the past 24 hour(s)). ASSESSMENT AND PLAN Ken Mckeon is a 74 y.o. y/o who presents for endoscopy. Risks and benefits of the procedure explained to the patient. We discussed in depth possible risks include reaction to anesthesia, bleeding, infection, perforation, bruising of other organs in the body, missed lesions including cancer, and/or other unforseen complication. All of the patients questions were answered. Patient wishes to proceed and consent was signed. Proceed with the planned endoscopic procedure. ASA 2 - Patient with mild systemic disease with no functional limitations Sedation Plan: moderate (conscious sedation) Michelle Camarillo MD Gastroenterology attending Pager [phone] documented in this encounter Plan of Treatment Upcoming Encounters Date Type Department Care Team (Late st Contact Info) Description 12/15/2024 11:30 AM EDT Office Visit [place] [address] Charline Ziegler MD [facility] [place] [address] documented as of this encounter Procedures Procedure Name Priority Date/Time Associated Diagnosis Comments SPECIMEN TO PATHOLOGY Routine 01/25/2020 12:11 PM EDT SPECIMEN TO PATHOLOGY Routine 01/25/2020 12:11 PM EDT SPECIMEN TO PATHOLOGY Routine 01/25/2020 12:11 PM EDT SURGICAL PATHOLOGY REPORT Routine 01/25/2020 11:41 AM EDT Upper Gi Endoscopy, Biopsy ([id number]) 01/25/2020 11:23 AM EDT Unexplained weight loss Colonoscopy, Lisa Currie, Snare ([id number]) 01/25/2020 11:23 AM EDT Unexplained weight loss UPPER GI ENDOSCOPY Routine 01/25/2020 11 :16 AM EDT COLONOSCOPY Routine 01/25/2020 11:16 AM EDT documented in this encounter Results * Specimen to Pathology (01/25/2020 12:11 PM EDT) AP Specimen 01/25/2020 12:1 1 PM EDT 01/25/2020 12:11 PM EDT Narrative [facility] - 01/25/2020 12:11 PM EDT Specimen requisition ordered. ??Separate Pathology report to follow Michelle Camarillo MD PATHOLOGY/CYTOLOG Y ORDERABLES Performing Organization Address City/[facility]/[place] [address] * Specimen to Pathology (01/25/2020 12:11 PM EDT) AP Specimen 01/25/2020 12:1 1 PM EDT 01/25/2020 12:11 PM EDT Narrative [facility] - 01/25/2020 12:11 PM EDT Specimen requisition ordered. ??Separate Pathology report to follow Michelle Camarillo MD PATHOLOGY/CYTOLOG Y ORDERABLES Performing Organization Address City/[facility]/[place] [address] * Specimen to Pathology (01/25/2020 12:11 PM EDT) AP Specimen 01/25/2020 12:1 1 PM EDT 01/25/2020 12:11 PM EDT Narrative [facility] - 01/25/2020 12:11 PM EDT Specimen requisition ordered. ??Separate Pathology report to follow Michelle Camarillo MD PATHOLOGY/CYTOLOG Y ORDERABLES Performing Organization Address [facility]/[place] [address] * Surgical Pathology Report (01/25/2020 11:41 AM EDT) Final Diagnosis [id number] ? Location: 4T; EA06; A The signing pathologist has (i) examined the relevant preparation(s) for the specimen(s) and (ii) rendered or confirmed the diagnosis(es). . ?Surgical Pathology DIAGNOSIS A - Stomach, biopsy: Gastric antral gland mucosa with nonspecific reactive gastropathy. Gastric fundic mucosa within normal limits. No H. pylori-like microorganism is seen. B - Ascending colon, ?? polypectomy: Tubular adenoma. C - Rectum, ??polypectomy: Inflammatory polyp. CR-PX Electronically signed by: ??John Parish MD Verified: ??02/01/2020 ?Pathologist Performed at: ??-[facility], [place], [place] SPECIMEN(S) SUBMITTED A - stomach, r/o H. pylori, biopsy (Multiple) B - ascending colon polyp, resection (Multiple) C - rectum polyp, resection (1) CLINICAL INFORMATION History of prostate cancer with weight loss SPECIMEN PROCESSING A - Labeled/Fixative: Stomach R/O H. pylori, formalin. Quantity/Size: Five, 0.2-0.5 cm. Tissue Description: Soft, davila-pink tissues. Sections/Processi ng: Submitted en toto ??in 1 cassette labeled A1. B - Labeled/Fixative: Ascending colon polyp, formalin. Quantity/Size: Single, 0.4 cm. Tissue Description: Soft, davila-pink tissue. Sections/Processi ng: Submitted en toto ??in 1 cassette labeled B1. C - Labeled/Fixative: Rectum polyp, formalin. Quantity/Size: Single, 0.4 cm. Tissue Description: Soft, davila-pink tissue. Sections/Processi ng: Submitted en toto ??in 1 cassette labeled C1. ??beckie 02/01/2020 8:25 AM EDT [facility] GI Biopsy 01/25/2020 11:4 1 AM EDT 01/25/2020 11:41 AM EDT GI Biopsy 01/25/2020 11:4 1 AM EDT 01/25/2020 11:41 AM EDT GI Biopsy 01/25/2020 11:4 1 AM EDT 01/25/2020 11:41 AM EDT Michelle Camarillo MD PATHOLOGY/CYTOLOG Y ORDERABLES Performing Organization Address [facility]/State/ZIP Co de Phone Number [facility] [place] [address] * UPPER GI ENDOSCOPY (01/25/2020 11:16 AM EDT) UPPER GI ENDOSCOPY [facility] Endoscopy Procedure Date: 01/25/2020 11:16 AM ? Patient Name: Ken Mckeon ? [facility]: [id number] ? Date of : 1945 ? Age: 74 ? Order #: [id number] ? Instrument Name: [id number] ? Procedure: ? Upper GI endoscopy Indications: ? Weight loss Providers: ? Michelle Camarillo MD, Say ? Juan Castillo, Geraldo Katz, Dayna ? Gordon Diaz MD: ?Morgan Cruz Medicines: ? Midazolam 4 mg IV, Fentanyl 200 ? micrograms IV Complications: ? No immediate complications. Procedure: ? The procedure, indications, benefits, ? risks and alternatives were explained ? to the patient. Specifically ? discussed were potential ? complications including, but not ? limited to, bleeding, perforation, ? infection, missing a cancer, and ? adverse medication reactions. The ? Endoscope was introduced through the ? mouth, and advanced to the second ? part of duodenum. The patient ? tolerated the procedure well. The ? upper GI endoscopy was accomplished ? without difficulty. The patient ? tolerated the procedure. ? Findings: ? The examined esophagus was normal. ? The Z-line was regular and was found 45 cm from the ? incisors. ? The entire examined stomach was normal. Biopsies were ? taken with a cold forceps for histology. ? A few very small localized erosions without bleeding ? were found in the duodenal bulb. The remainder of the ? examined duodenum appeared normal. ? Moderate Sedation: ? I was present during the intraservice time as ? documented by the sedation RN. Impression: ?- Normal esophagus. ? - Z-line regular, 45 cm from the ? incisors. ? - Normal stomach. Biopsied for h ? pylori. ? - Duodenal erosions without bleeding. Recommendation: ?- Await pathology results. ? - Colonoscopy now. ? Attending Participation: ? I personally performed the entire procedure. ? Michelle Camarillo MD 01/25/2020 11:46:06 AM Number of Addenda: 0 Note Initiated On: 01/25/2020 11:16 AM PROVATION 01/25/2020 11:1 6 AM EDT Morgan Cruz MD GENERAL SURGICAL ORD ERABLES [employer]OVATION * COLONOSCOPY (01/25/2020 11:16 AM EDT) COLONOSCOPY [facility] Endoscopy Procedure Date: 01/25/2020 11:16 AM ? Patient Name: Ken Mckeon ? Date of : 1945 ? Age: 74 ? Order #: [id number] ? Instrument Name: [id number] ? Procedure: ? Colonoscopy Indications: ? Constipation, Weight loss Providers: ? Michelle Camarillo MD, Say ? Geraldo Sheridan Autumn ? Gordon Referring : ?Reji Adams MD Medicines: ? An additional versed 2 mg and ? fentanyl 50 mcg were given for a ? total of versed 6 mg and fentanyl 250 ? mcg for both procedures. Complications: ? No immediate complications. Procedure: ? The procedure, indications, benefits, ? risks and alternatives were explained ? to the patient. Specifically ? discussed were potential ? complications including, but not ? limited to, bleeding, perforation, ? infection, missing a cancer, and ? adverse medication reactions. The ? patient was placed in the left ? lateral decubitus position, and a ? digital rectal exam was performed. ? The Colonoscope was inserted in the ? anus and under direct visualization, ? advanced to the terminal ileum, with ? identification of the appendiceal ? orifice and IC valve. Careful ? inspection was made as the ? colonoscope was withdrawn. The ? colonoscopy was performed without ? difficulty. The patient tolerated the ? procedure well. ? Findings: ? The terminal ileum appeared normal. ? A 5 mm polyp was found in the ascending colon. The ? polyp was sessile. The polyp was removed with a cold ? snare. Resection and retrieval were complete. ? A 3 mm polyp was found in the very distal rectum, ? possibly over a hemorrhoid. The polyp was sessile. ? The polyp was removed with a cold snare. Resection ? and retrieval were complete. ? External and internal hemorrhoids were found during ? retroflexion. The hemorrhoids were medium-sized. ? Moderate Sedation: ? I was present during the intraservice time as ? documented by the sedation RN. Impression: ?- The examined portion of the ileum ? was normal. ? - One 5 mm polyp in the ascending ? colon, removed with a cold snare. ? Resected and retrieved. ? - One 3 mm polyp in the rectum, ? removed with a cold snare. Resected ? and retrieved. ? - External and internal hemorrhoids. Recommendation: ?- Await pathology results. ? - Discharge home ambulatory. ? - Consider more aggressive bowel ? regimen with Miralax 17 gram twice ? daily. ? - Consider anorectal manometry ? testing to evaluate for pelvic floor ? dysfunction. ? - Consider GI consultation with ? motility center (Dr. Ravi) as needed. ? - Follow-up with PCP. ? Attending Participation: ? I personally performed the entire procedure. ? Michelle Camarillo MD 01/25/2020 12:18:53 PM Number of Addenda: 0 Note Initiated On: 01/25/2020 11:16 AM PROVATION 01/25/2020 11:1 6 AM EDT Reji Adams MD GENERAL SURGICAL ORD ERABLES Performing Organization Address City/State/[facility] Co de Phone Number [employer]ATION documented in this encounter Visit Diagnoses Not on filedocumented in this encounter Administered Medications Inactive Administered Medications - up to 3 most recent administrations Medication Order MAR Action Action Date Dose Rate Site fentaNYL 50 mcg/mL multi-dose injection ONCE PRN, Starting on Fri01/25/20 at 1127, Until Fri01/25/20 at 1502, Intra-Operative (Intra-Procedure), Routine Given 01/25/2020 11:47 AM EDT 50 mcg Given 01/25/2020 11:38 AM EDT 50 mcg Given 01/25/2020 11:33 AM EDT 50 mcg midazolam (PF) (VERSED) multi-dose injection ONCE PRN, Starting on Fri01/25/20 at 1127, Until Fri01/25/20 at 1502, Intra-Operative (Intra-Procedure), Routine Given 01/25/2020 11:51 AM EDT 1 mg Given 01/25/2020 11:47 AM EDT 1 mg Given 01/25/2020 11:38 AM EDT 1 mg documented in this encounter Active and Recently Administered Medications Times are shown in EDT. PRN Medication Order 01/23/2020 01/24/2020 01/25/2020 fentaNYL 50 mcg/mL multi-dose injection (CANCELED) ONCE PRN, Starting on Fri01/25/20 at 1127, Until Fri01/25/20 at 1502, Intra-Operative (Intra-Procedure), Routine 1127 (Given - Provid er: Say Castillo RN)1130 (Given - Provider: Say Castillo RN)1133 (Given - Provider: Say Castillo RN)1138 (Given - Provider: Say Castillo RN)1147 (Given - Provider: Say Castillo RN) midazolam (PF) (VERSED) multi-dose injection (CANCELED) ONCE PRN, Starting on Fri01/25/20 at 1127, Until Fri01/25/20 at 1502, Intra-Operative (Intra-Procedure), Routine 1127 (Given - Provid er: Say Castillo RN)1130 (Given - Provider: Say Castillo RN)1133 (Given - Provider: Say Castillo RN)1138 (Given - Provider: Say Castillo RN)1147 (Given - Provider: Say Castillo RN)1151 (Given - Provider: Say Castillo RN) documented in this encounter Care Teams Light Rail Train Operator Relationship Specialty Start Date End Date Reji Adams MD [facility] GENERAL [place] [address] PCP - General General Internal Medicine 07/13/15 documented as of this encounter
--- OUTSIDE RECORDS SUMMARY | 2024-07-09 11:11 | XMS_ITS | Encounter Summary ---
Author Organization [facility] [place] [address] Care Team Providers Care Product Development Consultant Name Role Phone Reji Adams MD Primary Care Provider [phone] Encounter Details Date Type Department Care Team (Late st Contact Info) Description 04/24/2020 Ancillary Procedure Radiology Library at [facility] [place] [address] Reji Adams MD [facility] GENERAL INTERNAL [place] [address] Social History Tobacco Use Types Packs/Day Years [...] 11:30 AM EDT Office Visit Gastroenterology at [facility] [place] [id number] Charline Ziegler MD [facility] GASTRO[place] [address] documented as of this encounter Procedures Procedure Name Priority Date/Time Associated Diagnosis Comments FILM LIBRARY STORAGE ONLY DX HIP Routine 04/24/2020 12:00 AM EDT documented in this encounter Results * Film Library- Storage Only DX Hip (04/24/2020 12:00 AM EDT) Narrative [facility] - 06/05/2022 2:10 PM EST This exam is auto-finalizing. It's purpose is for storage only. Reji Adams MD G FILM LIBRARY ORD ERABLES [place], [place] documented in this encounter Visit Diagnoses Not on filedocumented in this encounter Care Teams Product Development Consultant Relationship Specialty Start Date End Date Reji Adasm MD [facility] GENERAL INTERNAL [place] [address] PCP - General General Internal Medicine 07/13/15 documented as of this encounter
--- OUTSIDE RECORDS SUMMARY | 2024-07-09 11:11 | XMS_ITS | Encounter Summary ---
Author Organization [facility] Address [facility] [place] [address] Care Team Providers Care Administrative Receptionist Name Role Phone Reji Adams MD Primary Care Provider [phone] Encounter Details Date Type Department Care Team (Latest Contact Info) Description 03/14/2020 8:07 AM EDT - 03/14/2020 10:58 AM EDT Hospital Encounter [place] [address] Festus Carballo MD [facility] [place] [address] Discharge Disposition: Home Social History Tobacco Use [...] Sign Reading Time Taken Comments Blood Pressure 104/64 03/14/2020 10:34 AM EDT Pulse 65 03/14/2020 8:25 AM EDT Temperature 36.6 ??C (97.9 ??F) 03/14/2020 8:25 AM ED T Respiratory Rate 18 03/14/2020 10:34 AM EDT Oxygen Saturation 98% 03/14/2020 10:34 AM EDT Inhaled Oxygen Concentration - - Weight 83 kg (183 lb) 03/14/2020 8:25 AM EDT Height 179.1 cm (5' 10.5) 03/14/2020 8:25 AM ED T Body Mass Index 25.89 03/14/2020 8:25 AM EDT documented in this encounter Discharge Instructions * Patient Instructions* Festus Carballo MD - 03/14/2020 10:30 AM EDT Please see Recommendations in the Provation procedure report which is documented in the procedural note in E-DH. * Attachments The following attachments cannot be sent through Care Everywhere. * EGD (Upper Endoscopy): Post-op (Algerian) * Ultrasound: Endoscopic (Oral): Post-op (Algerian) documented in this encounter Medications at Time [...] daily as needed for Anxiety. 90 tablet 01/31/2020 03/16/2020 tadalafiL (CIALIS) 5 mg Tablet Take 5 mg by mouth as needed for Erectile Dysfunction. 03/17/2023 sildenafiL (VIAGRA) 100 mg Tablet Take 100 mg by mouth as needed for Erectile Dysfunction. 08/03/2020 meloxicam (MOBIC) 7.5 mg Tablet Take 1 tablet by mouth daily. 30 tablet 11 10/22/2019 05/17/2020 pravastatin (Pravachol) 20 mg Tablet Take 1 tablet by mouth daily. 90 tablet 3 08/26/2019 08/25/2020 MALCOLM EXTRACT ORAL Take by mouth. 11/09/19 aspirin 81 mg Tablet, Delayed Release (E.C.) Take 81 mg by mouth daily. 03/17/2023 documented as of this encounter H&P Notes * Maria E Castro MD - 03/14/2020 8:55 AM EDT Patient Name: Ken Mckeon Patient Age: 74 y.o. Birthdate: 1945 Admit date: 03/14/2020 Attending Physician: Festus Carabllo MD PROBLEM LIST Patient Active Problem List Diagnosis [...] Z98.890 ??? Malignant neoplasm of prostate C61 HISTORY OF PRESENT ILLNESS Ken Mckeon is a 74 y.o. man with PMHx of prostate ca who presents for EUS today for evaluation of abnormal weight loss and concern for malabsorption. Patient with negative EGD and colonoscopy in December with Dr. Camarillo. MEDICATIONS No current facility-administered medications on file prior to encounter. Current Outpatient Medications on File Prior to Encounter Medication Sig Dispense Refill ??? ALPRAZolam (Xanax) 0.25 mg Tablet Take 1 tablet by mouth 3 times daily as needed for Anxiety. 90 tablet 0 ??? tadalafiL (CIALIS) 5 mg Tablet Take 5 mg by mouth as needed for Erectile Dysfunction. ??? sildenafiL (VIAGRA) 100 mg Tablet Take 100 mg by mouth as needed for Erectile Dysfunction. ??? meloxicam (MOBIC) 7.5 mg Tablet Take 1 tablet by mouth daily. 30 tablet 11 ??? pravastatin (Pravachol) 20 mg Tablet Take 1 tablet by mouth daily. 90 tablet 3 ??? MALCOLM EXTRACT ORAL Take by mouth. ??? acetaminophen (TYLENOL ARTHRITIS PAIN) 650 mg Tablet Sustained Release Take 650 mg by mouth every 8 hours as needed for Pain. Do not exceed 6 tabs in 24 hours ??? aspirin 81 mg Tablet, Delayed Release (E.C.) Take 81 mg by mouth daily. ??? multivitamin (THERAGRAN) tablet Take 1 tablet by mouth daily. ??? [DISCONTINUED] BORON ORAL Take by mouth daily. ??? [DISCONTINUED] Saw [place] 500 mg capsule Take 500 mg by mouth daily. PHYSICAL EXAM: Blood pressure 121/77, pulse 65, temperature 36.6 ??C (97.9 ??F), height 179.1 cm (5' 10.5), weight 83 kg (183 lb), SpO2 99 %. GEN: Alert, cooperative. Pleasant. In NAD MP I ASA II HEENT: No oropharyngeal lesions. Neck supple. No masses. Thyroid symmetric LUNGS: Breathing comfortably on RA ABD: Non-distended. Active BS. Soft. Benign. No masses. No HSM. No succussion splash. No bruits RECENT LABS No results found for this or any previous visit (from the past 24 hour(s)). ASSESSMENT AND PLAN Ken Mckeon is a 74 y.o. y/o who presents for endoscopic evaluation. Risks extensively discussedincluding bleeding, infection, reaction to anesthesia, perforation, pancreatitis (if applicable), bile duct injury (if applicable), missing a cancer (if applicable) and/or other unforseen complication. Consent signed and patient well informed of the risks of the procedure. documented in this encounter Miscellaneous Notes * Op Note - Festus Carballo MD - 03/14/2020 10:29 AM EDT [facility] Operative Note Patient Name: Ken Mckeon : [id number] MR#: [id number] Case Date: 03/14/2020 Surgeon: Surgeon(s) and Role: * Festus Carballo MD - Primary * Maria E Castro MD - Fellow Preoperative diagnosis: Weight loss upper EUS with anesthesia. INDICATION: weight loss, greasy stools Postoperative diagnosis: * No post-op diagnosis entered * Procedure(s) (LRB): UPPER EUS- ENDOSCOPIC ULTRASOUND (N/A) EGD WITH BIOPSY (WRVU 2.49) (N/A) Anesthesia: MAC Full procedure note is documented under the Procedure section of eDH. documented in this encounter Plan of Treatment Upcoming Encounters Date Type Department Care Team (Late st Contact Info) Description 12/15/2024 11:30 AM EDT Office [place] [address] Charline Ziegler MD [facility] [place] [address] documented as of this encounter Procedures Procedure Name Priority Date/Time Associated Diagnosis Comments SURGICAL PATHOLOGY REPORT Routine 03/14/2020 10:01 AM EDT SPECIMEN TO PATHOLOGY Routine 03/14/2020 10:01 AM EDT Upper Gi Endoscopy, Biopsy ([id number]) 03/14/2020 9:29 AM EDT Weight loss upper EUS with anesthesia. INDICATION: weight loss, greasy stools Endoscopic Us Exam, Esoph ([id number]) 03/14/2020 9:29 AM EDT Weight loss upper EUS with anesthesia. INDICATION: weight loss, greasy stools UPPER EUS-ENDOSCOPIC ULTRASOUND Routine 03/14/2020 8:58 AM EDT documented in this encounter Results * Surgical Pathology Report (03/14/2020 10:01 AM EDT) Final Diagnosis [id number] ? Location: 4T; [facility]; A The signing pathologist has (i) examined the relevant preparation(s) for the specimen(s) and (ii) rendered or confirmed the diagnosis(es). . ?Surgical Pathology DIAGNOSIS Duodenum, ??biopsy: Duodenal mucosa within normal limits, including preserved villous architecture. Electronically signed by: ??Valeri CHAVEZ PhD, Bee Verified: ??03/17/2020 ?Pathologist Performed at: ??-[facility] Dept. of Pathology, [place], [place] SPECIMEN(S) SUBMITTED A - duodenal bx's. r/o celiac, biopsy (Multiple) CLINICAL INFORMATION 74-year-old with weight loss SPECIMEN PROCESSING A - Labeled/Fixativ e: Duodenal biopsies R/O celiac, formalin. Quantity/Size: Three, 0.4-0.5 cm. Tissue Description: Soft, daivla-pink tissues. Sections/Proces sing: Submitted en toto ??in 1 cassette labeled A1. ??beckie 03/17/2020 2:06 PM EDT [facility] GI Biopsy 03/14/2020 10:0 1 AM EDT 03/14/2020 10:01 AM EDT Festus Carballo MD PATHOLOGY/CYTOLOGY O LA Performing Organization Address [facility] Co de Phone Number [facility] [place] [address] * Specimen to Pathology (03/14/2020 10:01 AM EDT) AP Specimen 03/14/2020 10:0 1 AM EDT 03/14/2020 10:01 AM EDT Narrative [facility] - 03/14/2020 10:01 AM EDT Specimen requisition ordered. ??Separate Pathology report to follow Festus Carballo MD PATHOLOGY/CYTOLOGY O LA Performing Organization Address [facility] Co de Phone Number [facility] [place] [address] * UPPER EUS-ENDOSCOPIC ULTRASOUND (03/14/2020 8:58 AM EDT) UPPER ENDOSCOPIC ULTRASOUND [facility] Endoscopy Procedure Date: 03/14/2020 8:58 AM ? Patient Name: Ken Mckeon ? Date of : 1945 ? Age: 74 ? Order #: [id number] ? Instrument Name: [id number],[facility] [id number] ? Procedure: ? Upper EUS Indications: ? Weight loss, possible malabsorption Providers: ? Festsu Carballo MD, Maria E Castro, ? Seth Ortega, RN, Aleshia Rodriguez. ? Lorenzo, Surgical Scrub Technologist Referring MD: ?Kristofer Ravi, Reji Adams MD Medicines: ? Propofol per Anesthesia Complications: ? No immediate complications. Procedure: ? Pre-Anesthesia Assessment: ? - Prior to the procedure, a History ? and Physical was performed, and ? patient medications, allergies and ? sensitivities were reviewed. The ? patient's tolerance of previous ? anesthesia was reviewed. ? - The risks and benefits of the ? procedure and the sedation options ? and risks were discussed with the ? patient. All questions were answered ? and informed consent was obtained. ? - ASA Grade Assessment: II - A ? patient with mild systemic disease. ? - Using IV propofol under the ? supervision of an anesthesiologist ? was determined to be medically ? necessary for this procedure based on ? age 65 or older and complex procedure ? (ERCP, EUS). ? The procedure, indications, benefits, ? risks and alternatives were explained ? to the patient. Specifically ? discussed were potential ? complications including, but not ? limited to, bleeding, perforation, ? infection, missing a cancer, and ? adverse medication reactions.The ? Endosonoscope was introduced through ? the mouth, and advanced to the second ? part of duodenum. The Colonoscope was ? introduced through the mouth, and ? advanced to the second part of ? duodenum. The patient tolerated the ? procedure well. ? Findings: ? ENDOSCOPIC FINDING: : ? The examined esophagus was endoscopically normal. ? The entire examined stomach was endoscopically normal. ? The examined duodenum was endoscopically normal. ? Biopsies were taken with a cold forceps in the second ? portion of the duodenum for histology. ? ENDOSONOGRAPHIC FINDING: : ? The esophagus, stomach and duodenum were visualized ? endosonographically and were unremarkable. ? There was no sign of significant endosonographic ? abnormality in the entire pancreas. The pancreatic ? duct measured up to 2 mm in diameter. No pathologic ? lymphadenopathy, no masses, no calcifications. ? There was no sign of significant endosonographic ? abnormality in the common bile duct. The maximum ? diameter of the duct was 4 mm. ? There was no sign of significant endosonographic ? abnormality in the gallbladder. ? Normal visualized portion of liver (limited exam). ? Moderate Sedation: ? Not applicable - See Anesthesia documentation Impression: ?- Normal upper EUS exam. Duodenal ? biopsies taken to exclude celiac ? disease. Recommendation: ?- Observe patient's clinical course. ? - Await path results. ? Attending Participation: ? I personally performed the entire procedure. ? Festus Carballo MD 03/14/2020 12:16:59 PM This report has been signed electronically. Number of Addenda: 0 Note Initiated On: 03/14/2020 8:58 AM PROVATION 03/14/2020 8:58 AM EDT Kristofer Ravi MD GENERAL SURGICAL ORD ERABLES PROVATION documented in this encounter Visit Diagnoses Not on filedocumented in this encounter Administered Medications Inactive Administered Medications - up to 3 most recent administrations Medication Order MAR Action Action Date Dose Rate Site lactated ringers infusion 100 mL/hr, Intravenous, CONTINUOUS, Starting on Fri03/14/20 at 0830, Until Fri03/14/20 at 1040, Endoscopy (Day of Procedure) New Bag 03/14/2020 9:23 AM EDT New Bag 03/14/2020 8:51 AM EDT 100 mL/hr 100 mL/hr documented in this encounter Active and Recently Administered Medications Times are shown in EDT. Continuous Medication Order 03/12/2020 03/13/2020 03/14/2020 lactated ringers infusion (CANCELED) 100 mL/hr, Intravenous, CONTINUOUS, Starting on 03/14/20 at 0830, Until Tu03/14/20 at 1040, Endoscopy (Day of Procedure) 0851 (New Bag - Prov ider: Selena Tejeda RN)23 (New Bag - Provider: Tressa Angulo CRNA)0959 (Anesthesia Volume Adjustment - Provider: Tressa Angulo CRNA) documented in this encounter Care Teams Administrative Receptionist Relationship Specialty Start Date End Date Reji Adams MD [facility] [place] [address] PCP - General General Internal Medicine 07/13/15 documented as of this encounter
--- OUTSIDE RECORDS SUMMARY | 2024-07-09 11:11 | XMS_ITS | Encounter Summary ---
Author Organization [facility] Address [facility] [place] [address] Care Team Providers Care Rn Coronary Care Unit Name Role Phone Reji Adams MD Primary Care Provider [phone] Encounter Details Date Type Department Care Team (Latest Contact Info) Description 01/25/2020 10:01 AM EDT - 01/25/2020 1:02 PM EDT Hospital Encounter [place] [address] Michelle Camarillo MD [facility] [place] [place] [address] Discharge Disposition: Home Social History Tobacco Use [...] Sign Reading Time Taken Comments Blood Pressure 101/57 01/25/2020 12:40 PM EDT Pulse 57 01/25/2020 12:14 PM EDT Temperature 36.9 ??C (98.5 ??F) 01/25/2020 10:28 AM E DT Respiratory Rate 16 01/25/2020 12:23 PM EDT Oxygen Saturation 99% 01/25/2020 12:50 PM EDT Inhaled Oxygen Concentration - - [...] the day after the test, use an dhrl-gny-pzjutqm spray or lozenges to numbyour throat. Warm [...] occurs, please contact your doctor. Please call [phone] before 8pm Mon-Fri with problems, questions, or concerns. If you call after 8pm or on weekends, call the Hospital at [phone] and ask for the Senior Estimator propulsion systems engineer and the composing machine operator will contact that person for you. When should you call for help? Call [phone] anytime you think you may need emergency [...] more? You can view health information on [employer], your personal patient account. Log in or sign up today. Content Version: 12.2 ?? [id number] [employer]. Care instructions adapted under license by [facility]. If you have questions about a medical condition or this instruction, always ask your healthcare professional. [employer] disclaims any warranty or liability for your [...] 81 mg by mouth daily. 03/17/2023 Saw [place] 500 mg capsule Take 500 mg by [...] 1 tablet by mouth daily. ??? Saw [place] 500 mg capsule Take 500 mg by [...] sedation) Michelle Camarillo MD Gastroenterology attending Pager [phone] documented in this encounter Plan of Treatment Upcoming Encounters Date Type Department Care Team (Late st Contact Info) Description 12/15/2024 11:30 AM EDT Office [place] [address] Charline Ziegler MD [facility] [place] [place] [address] documented as of this encounter Procedures Procedure Name Priority Date/Time Associated Diagnosis Comments SPECIMEN TO PATHOLOGY Routine 01/25/2020 12:11 PM EDT SPECIMEN TO PATHOLOGY Routine 01/25/2020 12:11 PM EDT SPECIMEN TO PATHOLOGY Routine 01/25/2020 12:11 PM EDT SURGICAL PATHOLOGY REPORT Routine 01/25/2020 11:41 AM EDT Upper Gi Endoscopy, Biopsy ([id number]) 01/25/2020 11:23 AM EDT Unexplained weight loss Colonoscopy, Lisa Currie, Snare ([id number]) 01/25/2020 11:23 AM EDT Unexplained weight loss UPPER GI ENDOSCOPY Routine 01/25/2020 11 :16 AM EDT COLONOSCOPY Routine 01/25/2020 11:16 AM EDT documented in this encounter Results * Specimen to Pathology (01/25/2020 12:11 PM EDT) AP Specimen 01/25/2020 12:1 1 PM EDT 01/25/2020 12:11 PM EDT Narrative [facility] - 01/25/2020 12:11 PM EDT Specimen requisition ordered. ??Separate Pathology report to follow Michelle Camarillo MD PATHOLOGY/CYTOLOG Y ORDERABLES Performing Organization Address [facility]/[place] [address] * Specimen to Pathology (01/25/2020 12:11 PM EDT) AP Specimen 01/25/2020 12:1 1 PM EDT 01/25/2020 12:11 PM EDT Narrative [facility] - 01/25/2020 12:11 PM EDT Specimen requisition ordered. ??Separate Pathology report to follow Michelle Camarillo MD PATHOLOGY/CYTOLOG Y ORDERABLES Performing Organization Address [facility] [place] [place] [address] * Specimen to Pathology (01/25/2020 12:11 PM EDT) AP Specimen 01/25/2020 12:1 1 PM EDT 01/25/2020 12:11 PM EDT Narrative [facility] - 01/25/2020 12:11 PM EDT Specimen requisition ordered. ??Separate Pathology report to follow Michelle Camarillo MD PATHOLOGY/CYTOLOG Y ORDERABLES Performing Organization Address [facility] [place] [place] [address] * Surgical Pathology Report (01/25/2020 11:41 AM EDT) Final Diagnosis [id number] ? Location: 4T; EA06; A The signing [...] Parish MD Verified: ??02/01/2020 ?Pathologist Performed at: ??-[facility] Dept. of Pathology, [place], [place] SPECIMEN(S) SUBMITTED A - stomach, r/o [...] labeled C1. ??beckie 02/01/2020 8:25 AM EDT [facility] GI Biopsy 01/25/2020 11:4 1 AM EDT 01/25/2020 11:41 AM EDT GI Biopsy 01/25/2020 11:4 1 AM EDT 01/25/2020 11:41 AM EDT GI Biopsy 01/25/2020 11:4 1 AM EDT 01/25/2020 11:41 AM EDT Michelle Camarillo MD PATHOLOGY/CYTOLOG Y ORDERABLES Performing Organization Address [facility]/State/ZIP Co de Phone Number [facility] [place] [address] * UPPER GI ENDOSCOPY (01/25/2020 11:16 AM EDT) UPPER GI ENDOSCOPY [facility] Endoscopy Procedure Date: 01/25/2020 11:16 AM ? Patient Name: Ken Mckeon ? N: [id number] ? Date of : 1945 ? Age: 74 ? Order #: [id number] ? Instrument Name: [id number] ? Procedure: ? Upper GI endoscopy Indications: [...] * COLONOSCOPY (01/25/2020 11:16 AM EDT) COLONOSCOPY [facility] Endoscopy Procedure Date: 01/25/2020 11:16 AM ? Patient Name: Ken Mckeon ? Date of : 1945 ? Age: 74 ? Order #: [id number] ? Instrument Name: [id number] ? Procedure: ? Colonoscopy Indications: ? Constipation, [...] multi-dose injection (CANCELED) ONCE PRN, Starting on e 01/25/20 at 1127, Until Fri01/25/20 at 1502, Intra-Operative (Intra-Procedure), Routine 1127 (Given - Provid er: Say Castillo RN)1130 (Given - Provider: Say Castillo RN)1133 (Given - Provider: Say Castillo RN)1138 (Given - Provider: Say Castillo RN)1147 (Given - Provider: Say Castillo RN) midazolam (PF) (VERSED) multi-dose injection (CANCELED) ONCE PRN, Starting on 01/25/20 at 1127, Until Fri01/25/20 at 1502, Intra-Operative (Intra-Procedure), Routine 1127 (Given - Provid er: Say Castillo RN)1130 (Given - Provider: Say Castillo RN)1133 (Given - Provider: Say Castillo RN)1138 (Given - Provider: Say Castillo RN)1147 (Given - Provider: Say Castillo, AGNIESZKA)1151 (Given - Provider: Say Castillo RN) documented in this encounter Care Teams Rn Coronary Care Unit Relationship Specialty Start Date End Date Reji Adams MD [facility] [place] [address] PCP - General General Internal Medicine 07/13/15 documented as of this encounter
--- OUTSIDE RECORDS SUMMARY | 2024-07-09 11:11 | XMS_ITS | Encounter Summary ---
Author Organization [facility] [place] [address] Care Team Providers Care Correspondence Clerk Name Role Phone Reji Adams MD Primary Care Provider [phone] Reason for Visit * Reason Onset Date Comments Medication Refill 04/24/2020 Encounter Details Date Type Department Care Team (Late st Contact Info) Description 04/24/2020 Refill Internal Medicine at [address] [address] Reji Adams MD [facility] [place] [address] Anxiety Social History Tobacco Use Types Packs/Day [...] 11:30 AM EDT Office Visit [place] [address] Charline Ziegler MD [facility] GASTROENTEROLOGY [place], [place] [id number] documented as of this encounter Visit Diagnoses Diagnosis Anxiety Anxiety state, unspecified documented in this encounter Care Teams Correspondence Clerk Relationship Specialty Start Date End Date Reji Adams MD [facility] [place] [address] PCP - General General Internal Medicine 07/13/15 documented as of this encounter
--- OUTSIDE RECORDS SUMMARY | 2024-07-09 11:11 | XMS_ITS | Encounter Summary ---
Author Organization [facility] [place] [address] Care Team Providers Care Bobbin Doffer Name Role Phone Reji Adams MD Primary Care Provider [phone] Encounter Details Date Type Department Care Team (Late st Contact Info) Description 01/07/2020 [place]phone [place] [address] Yuliana Williamson, [facility] Social History Tobacco Use Types Packs/Day Years Used Date Smoking Tobacco: Never Smokeless Tobacco: Current Chew Comments:3 cans/ week. Alcohol Use Standard Drinks/Week Comments Yes 0 (1 standard drink = 0.6 oz pur e alcohol) rarely Sex and Gender Information Value Date Recorded Sex Assigned at Choose not to disclose 02/2023 8:26 AM EDT Gender Identity Not on file Sexual Orientation Choose not to disclose 2022 8:26 AM EDT documented as of this encounter Miscellaneous Notes * Telephone Encounter - Yuliana Williamson - 01/07/2020 10:18 AM EDT Ken Mckeon [id number] Diagnosis/Indication:Unexplained weight loss 1. Have you ever had a/an Upper Endoscopy & Colonoscopy before? Yes: Date 09/12/17 If yes, did you have any problems with the procedure? No What type of sedation was used: IV Conscious Sedation 2. Do you take any Blood Thinners? No 3. Do you have a Pacemaker or Defibrillator device? No 4. Are you a diabetic? No 5. Do you have any Allergies to Eggs, Latex or Medications? Yes: In chart 6. Do you take any Oral Iron Supplements (Including multi-vitamins)? No 7. Do you have a history of three or more abdominal surgeries? No 8. Have you had a problem with sedation or anesthesia? No 9. Do you have a c-pap machine or oxygen tank? Neither 10. Do you take prescription narcotic pain medications, including suboxone or methodone? No 11. Do you have a preference regarding the gender of your provider? No Preference 12. Is there any other information you would like to give us to aid in scheduling? No 13. Say to patient: You must have a responsible libertarian who will drive you to your procedure, stay [place] for the entire duration of your procedure, and drive you home from your procedure? Height: 5'10 Weight: 186 Age:74 y.o. documented in this encounter Plan of Treatment Upcoming Encounters Date Type Department Care Team (Late st Contact Info) Description 12/15/2024 11:30 AM EDT Office [place] [address] Charline Ziegler MD [facility] [place] [address] documented as of this encounter Visit Diagnoses Not on filedocumented in this encounter Care Teams Bobbin Doffer Relationship Specialty Start Date End Date Reji Adams MD [facility] [place] [address] PCP - General General Internal Medicine 07/13/15 documented as of this encounter
--- OUTSIDE RECORDS SUMMARY | 2024-07-09 11:11 | XMS_ITS | Encounter Summary ---
Author Organization Formerly [facility] Address [facility] [place] [address] Care Team Providers Care Field Reporter Name Role Phone Reji Adams MD Primary Care Provider [phone] Reason for Referral * Consultation (Urgent) - Closed Specialty Diagnoses / Procedures Referred By Duglas arizmendi Referred To Contact Gastroenterology Diagnoses Weight loss Kristofer Ravi MD [facility] [place] [address] [facility] [address] [place] [address] Referral ID Status Reason Start Date Expiration Date V isits Requested Visits Authorized [id number] Closed Consult, Test & Treat 03/07/2020 03/07/2021 1 1 Encounter Details Date Type Department Care Team (Late st Contact Info) Description 03/07/2020 Telephone [place] [address] Kristofer Ravi MD [facility] [place] [address] Social History Tobacco Use Types Packs/Day Years [...] encounter Miscellaneous Notes * Telephone Encounter - Kristofer Ravi MD - 03/07/2020 6:30 PM EDT Called patient, reviewed prior records, optimized care plan, and coordinated care overall between 610pm and 649pm Referenced to gastroenterology [id number] / telehealth encounter dated 01/31/20 Summary of conversations and review of prior records: As addressed in my office note on 01/31/20, I am concerned that the weight loss is not likely GI related. We evaluated the patient for constipation. Malabsorption typically presents with chronic diarrhea (floating stools being a nonspecific finding). I called the patient and he endorses gaining 1-2 lb in the last week, denies diarrhea, but states his stools are thin and float. His colon was normal, this thin stool can be a product of paradoxical puborectalis contraction during defecation (I.e. dyssynergic defecation) for which we have seen him for chronic constipation. As his weight loss is severe and chronic and give his age, despite a normal CT with no pancreatic or luminal changes and normal EGD/colon and no diarrhea, we will complete workup for malabsorptive diarrhea and promptly schedule him for an EUS to rule out a small pancreatic mass as the most sensitive test. In the meantime and for the reasons stated above, would advise the PCP to look for non-GI causes of weight loss without delay, while he undergoes his GI workup. I spent 31 minutes coordinating care. * Telephone Encounter - Kristofer Ravi MD - 03/07/2020 6:30 PM EDT ----- Message from Ximena Garza MD sent at 03/07/2020 5:49 PM EDT ----- Hi Dr. Ravi,You saw Mr. Mckeon via telehealth last month. He has had weight loss over the past year of almost 40 pounds over the past 6 months or so. At the time he spoke with you he was having normal stools. Now he has noticed thin stools that are shaggy and float- c/w fat malabsorption. He has had normal colonoscopy and EGD and normal CT enteroscopy. Do you have recommendations for further study of the stool or for malabsorption?Should he schedule another appt face to face or through telehealth?Thank you for your help. Isabel Garza documented in this encounter Plan of Treatment Upcoming Encounters Date Type Department Care Team (Late st Contact Info) Description 12/15/2024 11:30 AM EDT Office [place] [address] Charline Ziegler MD [facility] [place] [address] Scheduled Referrals Name Type Priority Associated Diagnoses Order Schedule Referral to Gastroenterology Outpatient Referral Routine Weight loss Ordered: 03/07/2020 documented as of this encounter Results * Elastase, Stool (03/08/2020 9:30 AM EDT) Elastase Stool (QST) 329 mcg/gm [facility] Comment: Adult and Pediatric Reference Ranges for ??Pancreatic Elastase-1: ? Normal: ?>200 mcg/g Moderate Pancreatic ?Insufficiency: ?? 100-200 mcg/g ??Severe Pancreatic ?Insufficiency: ?<100 mcg/g Elastase-1 (E-1) assay results are expressed in mcg/g, which represent mcg E1/g feces. It is not necessary to interrupt enzyme substitution therapy. Test performed by [facility] ?[id number] [address], ?[place] [address] ? Ship'S Officer: Reina Lyn MD,PHD,TONY Test Reported by [employer] Becky, [employer] [facility], [address] [place] [address] Law Duke M.D., Ph.D., Director of Laboratories , CLIA [id number] Stool specimen (specimen) 03/08/2020 9:30 AM EDT 03/09/2020 11:43 AM EDT Narrative Resulting Agency Comment Spec In Lab Kristofer Ravi MD LAB SEND OUT ORDERAB LES [facility] [place] [address] * (ABNORMAL) Fecal Fat Quantitative: 72 hour collection (03/08/2020 9:30 AM EDT) Stool Weight (NOVEMBER) 17 gm [facility] Comment: REVISED RESULTS PREVIOUSLY REPORTED 17 A typical adult stool collection contains between 100 and 200 grams of stool per 24 hours. ??The amount submitted for testing was less than 100 grams/24 hours; therefore, reliable results may not be obtained. Repeat collection is recommended. (Reported 03/10/2020 08:15) Test Performed by: [facility] - [address] [address] Supervisory Air Intercept Controller: Rigo Ahmadi M.D. Ph.D.; CLIA# [id number] Corrected from 17 gm [NA] on 03/15/20 10:30:10 EDT by Contributor_system, IRON. Hrs Stool (NOVEMBER) Random hour(s) [facility] Comment: REVISED RESULTS More reliable results can be obtained from a timed collection. 48 and 72 hour collections will give the most reliable results. Percent Fat >20% in a random collection is suggestive of a fat malabsorption disorder and should be confirmed with a timed collection. PREVIOUSLY REPORTED 72 (Reported 03/10/2020 08:15) Test Performed by: [facility] - [address] [address] Supervisory Air Intercept Controller: Rigo Ahmadi M.D. Ph.D.; CLIA# [id number] Corrected from Random hour(s) [NA] on 03/15/20 10:30:10 EDT. Total Fat Stool (NOVEMBER) NA [facility] %Fat Stl (NOVEMBER) 20(H) <20 % fat [facility] Comment: REVISED RESULTS ADDITIONAL INFORMATION This test was developed and its performance characteristics determined by [facility] in a manner consistent with CLIA requirements. This test has not been cleared or approved by the U.S. Food and Drug Administration. PREVIOUSLY REPORTED DNR (Reported 03/10/2020 08:15) Test Performed by: [facility] - [address] [address] Supervisory Air Intercept Controller: Rigo Ahmadi M.D. Ph.D.; CLIA# [id number] Stool specimen (specimen) 03/08/2020 9:30 AM EDT 03/08/2020 4:07 PM EDT Narrative Resulting Agency Comment Spec In Lab Kristofer Ravi MD LAB SEND OUT ORDERAB LES [facility] [place] [address] * Iron and TIBC (03/08/2020 7:25 AM EDT) Iron 91 45 - 160 mcg/dL [facility] TIBC 262 250 - 450 mcg/dL [facility] Iron Saturation 35 20 - 50 % [facility] Blood specimen (specimen) 03/08/2020 7:25 AM EDT 03/08/2020 7:33 AM EDT Narrative Resulting Agency Comment Spec In Lab Kristofer Ravi MD CHEMISTRY ORDERABLES Performing Organization Address [facility] Co de Phone Number [facility] [place] [address] * Gastrin (03/08/2020 7:25 AM EDT) Pathologist [facility] Gastrin (NOVEMBER) <10 pg/mL [facility] Comment: REFERENCE VALUE <100 Reference ranges valid for >= 8 hour fast. Test Performed by: [facility] [place] [address] Supervisory Air Intercept Controller: Rigo Ahmadi M.D. Ph.D.; CLIA# [id number] Blood specimen (specimen) 03/08/2020 7:25 AM EDT 03/08/2020 4:07 PM EDT Narrative Resulting Agency Comment Spec In Lab Kristofer Ravi MD LAB SEND OUT ORDERAB LES Performing Organization Address [facility] de Phone Number [facility] [place] [address] * Folate, serum (03/08/2020 7:25 AM EDT) [facility] Folate >20.0 4.8 - 24.2 ng/mL [facility] Blood specimen (specimen) 03/08/2020 7:25 AM EDT 03/08/2020 7:33 AM EDT Narrative Resulting Agency Comment Spec In Lab Kristofer Ravi MD CHEMISTRY ORDERABLES Performing Organization Address [facility] Co de Phone Number [facility] [place] [address] * Ferritin (03/08/2020 7:25 AM EDT) [facility] Ferritin 198 30 - 400 ng/mL [facility] Comment: Pediatric reference ranges not verified at [facility], interpret with caution. Reference ranges for females greater than 50 years of age approach values for men, i.e., 30-400 ng/mL. Blood specimen (specimen) 03/08/2020 7:25 AM EDT 03/08/2020 7:33 AM EDT Narrative Resulting Agency Comment Spec In Lab Kristofer Ravi MD CHEMISTRY ORDERABLES Performing Organization Address [facility] Co de Phone Number [facility] [place] [address] * Vitamin A (03/08/2020 7:25 AM EDT) [facility] Vitamin A (NOVEMBER) 41.0 32.5 - 78.0 mcg/dL [facility] Comment: ADDITIONAL INFORMATION This test was developed and its performance characteristics determined by [facility] in a manner consistent with CLIA requirements. This test has not been cleared or approved by the U.S. Food and Drug Administration. Test Performed by: [facility] - [address] [address] Supervisory Air Intercept Controller: Rigo Ahmadi M.D. Ph.D.; CLIA# [id number] Blood specimen (specimen) 03/08/2020 7:25 AM EDT 03/08/2020 2:23 PM EDT Narrative Resulting Agency Comment Spec In Lab Kristofer Ravi MD LAB SEND OUT ORDERAB LES Performing Organization Address [facility] Co de Phone Number [facility] [place] [address] * Vitamin D, 25-Hydroxy (03/08/2020 7:25 AM EDT) [facility] Vitamin D Total 25 OH 50 21 - 100 ng/mL [facility] Comment: Please note, effective December 01, 2019, additional result field for Vitamin D Interpretation, and updated flagging notification. Vit D Interp Sufficient [facility] Blood specimen (specimen) 03/08/2020 7:25 AM EDT 03/08/2020 7:33 AM EDT Narrative Resulting Agency Comment Spec In Lab Kristofer Ravi MD CHEMISTRY ORDERABLES Performing Organization Address [facility] Co de Phone Number [facility] [place] [address] * Vitamin E (03/08/2020 7:25 AM EDT) Vitamin E 11.1 5.5 - 17.0 mg/L [facility] Comment: ADDITIONAL INFORMATION This test was developed and its performance characteristics determined by [facility] in a manner consistent with CLIA requirements. This test has not been cleared or approved by the U.S. Food and Drug Administration. Test Performed by: [facility] - [id number] [place] [address] Supervisory Air Intercept Controller: Rigo Ahmadi M.D. Ph.D.; CLIA# [id number] Blood specimen (specimen) 03/08/2020 7:25 AM EDT 03/08/2020 2:23 PM EDT Narrative Resulting Agency Comment Spec In Lab Kristofer Ravi MD LAB SEND OUT ORDERAB LES Performing Organization Address City/[facility]/ZIP Co de Phone Number [facility] [place] [address] documented in this encounter Visit Diagnoses Diagnosis Weight loss Loss of weight Other specified diseases of pancreas Abnormal finding of blood chemistry, unspecified documented in this encounter Care Teams Field Reporter Relationship Specialty Start Date End Date Reji Adams MD [facility] [place] [address] PCP - General General Internal Medicine 07/13/15 documented as of this encounter
--- OUTSIDE RECORDS SUMMARY | 2024-07-09 11:11 | XMS_ITS | Encounter Summary ---
Author Organization Replaced By [facility] Address [facility] [place] [address] Care Team Providers Care Treatment Plant Mechanic Name Role Phone Reji Adams MD Primary Care Provider [phone] Reason for Visit * Reason Comments Palpitations Encounter Details Date Type Department Care Team (Late st Contact Info) Description 05/17/2020 3:30 PM EDT Office Visit Internal Medicine at [place] [id number] Manuel Asher MD [facility] GENERAL [place] [address] Palpitation; Anemia, unspecified type Social History Tobacco Use Types Packs/Day [...] Sign Reading Time Taken Comments Blood Pressure 119/71 05/17/2020 3:29 PM EDT Pulse 71 05/17/2020 3:29 PM EDT Temperature 37 ??C (98.6 ??F) 05/17/2020 3:29 PM EDT Respiratory Rate - - Oxygen Saturation 100% 05/17/2020 3:29 PM EDT Inhaled Oxygen Concentration - - Weight 87.6 kg (193 lb 3.2 oz) 05/17/2020 3:29 P M EDT Height 180.3 cm (5' 10.98) 05/17/2020 3:29 PM E DT REPORTED Body Mass Index 26.96 05/17/2020 3:29 PM EDT documented in this encounter Progress Notes * Manuel Asher MD - 05/17/2020 3:30 PM EDT General Internal Medicine Acute Visit Note Ken Mckeon is a 74 y.o. male with a history of anxiety/depression, prostate cancer, and arthritis who presents with concerns of palpitations. Patient Active Problem List Diagnosis Code ??? [...] Z98.890 ??? Malignant neoplasm of prostate C61 HPI Feels like symptoms started after his recent surgery and he attributes it to the Celebrex that he was taking at the time. More frequent in the evening while sitting down watching TV. Reports a sensation where he feels intermittent pauses, describing a normal beat followed by a large beat followed by a short lapse. Does note some intermittent symptoms of light headedness when bending over but mostrecently when shooting his bow. Denies any palpitations during those episodes. Notes a history of palpitations in the past feels they are occurring more frequently since his surgery. Review of Systems (as above otherwise): General: no fevers, chills, night sweats; no recent weight changes; no fatigue EENT: no changes in vision; no changes in hearing; no rhinorrhea, congestion, sinus pain, sore throat Cardiovascular: no chest pain; palpitations; no dizziness,lightheadedness, no edema Respiratory: no SOB, MARTIN, no cough, no wheeze GI: no abdominal pain; no nausea, vomiting, diarrhea, or constipation : no dysuria; no urgency, frequency, hesitancy Musculoskeletal: no muscle or joint pain Endocrine: no heat or cold intolerance; no polyuria/polydipsia Heme: no easy bruising or bleeding Neuro: no headaches; no numbness or tingling; no weakness; no incoordination Psych: mood good Past Medical History: Diagnosis Date ??? BPH (benign prostatic hyperplasia) ??? Neck pain 08/24/2012 ??? OA (osteoarthritis) of knee right Past Surgical History: Procedure Laterality Date ??? CREATED BY INTERFACE Past surg hx. Procedure Date: 09/19/2010 ??? PRO COLONOSCOPY, DIAGNOSTIC 09/07/2013 COLONOSCOPY, DIAGNOSTIC performed by Ximena Gu MD at [facility] ENDOSCOPY ??? PRO COLONOSCOPY, REMV LESN, SNARE N/A 01/25/2020 COLONOSCOPY, POLYPECTOMY, REMOVAL LESION BY SNARE (WRVU 4.67) performed by Michelle Camarillo MDat [facility] ENDOSCOPY ??? PRO ENDOSCOPIC US EXAM, ESOPH N/A 03/14/2020 UPPER EUS- ENDOSCOPIC ULTRASOUND performed by Festus Carballo MD at [facility] ENDOSCOPY ??? PRO LIGATE/STRIP LONG SAPH VEIN BELW SEP-FEM JUNC 06/02/2012 LIGATION\DIV\STRIP GREATER SAPHENOUS VEIN performed by BEATRICE RODRÍGUEZ at [facility] MAIN OR ??? PRO PHLEB VEINS - EXTREM - TO 20 06/02/2012 STAB PHLEBECTOMY KARLI VEINS, EXTREMITY 10-20 INCISIONS-SANTI performed by BEATRICE RODRÍGUEZ at [facility] MAIN OR ??? PRO UPPER GI ENDOSCOPY, BIOPSY N/A 09/02/2017 EGD WITH BIOPSY (WRVU 2.49) performed by Rahul Escobar MD at [facility] ENDOSCOPY ??? PRO UPPER GI ENDOSCOPY, BIOPSY N/A 01/25/2020 EGD WITH BIOPSY (WRVU 2.49) performed by Michelle Camarillo MD at [facility] ENDOSCOPY ??? PRO UPPER GI ENDOSCOPY, BIOPSY N/A 03/14/2020 EGD WITH BIOPSY (WRVU 2.49) performed by Festus Carballo MD at [facility] ENDOSCOPY ??? US GUIDED BIOPSY PROSTATE ([place] ONLY) 02/08/2019 US Guided Transrectal Biopsy 02/08/2019 [facility] RAD ULTRASOUND Outpatient Encounter Medications as of 05/17/2020 Medication Sig Dispense Refill ??? ALPRAZolam (Xanax) 0.25 mg Tablet Take 1 tablet by mouth 3 times daily as needed for Anxiety. 90 tablet 0 ??? celecoxib (CeleBREX) 200 mg Capsule Take 400 mg by mouth 2 times daily. ??? tadalafiL (CIALIS) 5 mg Tablet Take [...] 1 tablet by mouth daily. No facility-administered encounter medications on file as of 05/17/2020. Allergies Allergen Reactions ??? Penicillins Anaphylaxis Tongue swelling ??? Betamethasone hiccups after injection ??? Dexamethasone Hiccups after injection Physical Exam Patient Vitals for the past 24 hrs: Temp Pulse BP SpO2 05/17/20 1529 37 ??C (98.6 ??F) 71 119/71 100 % Constitutional/General: well-appearing, NAD Lungs: CTA b/l no W/R/C Heart: RRR S1S2 no M/R/G Peripheral Vascular: no edema Skin: no rashes noted, no lesions EKG 05/17/2020 ??3:51 PM Component Value Flag Ref Range Units Status Ventricular rate 69 BPM Preliminary Atrial Rate 69 BPM Preliminary P-R Interval 174 ms Preliminary QRS Duration 160 ms Preliminary Q-T Interval 434 ms Preliminary QTC Calculated (Bezet) 465 ms Preliminary Calculated P [place] 76 degrees Preliminary Calculated R [place] -75 degrees Preliminary Calculated T [place] 66 degrees Preliminary INTERPRETATION Preliminary Normal sinus rhythm Right bundle branch block Left anterior fascicular block Bifascicular block Left ventricular hypertrophy with repolarization abnormality Cannot rule out Septal infarct (cited on or before 11-NOV-2011) Abnormal ECG When compared with ECG of 22-MAR-2016 08:26, Questionable change in initial forces of Septal leads Assessment and Plan: Ken Mckeon is a 74 y.o. male with a history of anxiety/depression, prostate cancer, and arthritis who presents with concerns of palpitations. Patient's EKG shows no significant dynamic changes compared to 2016, which is reassuring. THere was also no evidence of ectopic beats despite monitoring for almost a minute. Patient may very well be experiencing ectopic beats in the evening while relaxed but his history does not suggest that more rat exterminator monitoring is warranted at time. Reasons for palpitations and precautionary symptoms were discussed with the patient. Will repeat CBC today to monitor for interval improvement on post-surgical anemia. Palpitations - ekg unremarkable - check cbc - prior lytes unremarkable Manuel Asher MD 05/17/2020 PGY-2, Internal Medicine * Mirlande New MD - 05/17/2020 3:30 PM EDT The case was discussed at the time of the visit or immediately after the visit. The assessment and plan were formulated in discussion with me and I agree with them as documented. I have reviewed the history, physical exam, assessment and plan with the resident. Major issues discussed today: Pt is a 74 yo male with PMH OA, prostate ca, anxiety/depression with increasing palpitations. He thinks that they are greater since he was started on celebrex. Usually more at night, often feels early beat and then pause. Dizziness with bending over/shooting his bow, but not with the palpitations. No cp. No chf symptoms. Recent labs with anemia. On exam afebrile pulse 71. Comfortable NAD. Lungs cta, heart rrr no murmurs, no edema. EKG today with bifasciular block which is old without any other new changes. Based on history and exam. His symptoms sound like premature beats, although these are not seen on His EKG. Will proceed with labs today and only perform radiation monitor if these continue. documented in this encounter Plan of Treatment Upcoming Encounters Date Type Department Care Team (Late st Contact Info) Description 12/15/2024 11:30 AM EDT Office Visit Gastroenterology at [facility] [place] [phone] Chraline Ziegler MD [facility] [place] [address] documented as of this encounter Procedures Procedure Name Priority Date/Time Associated Diagnosis Comments HEMOGRAM Routine 05/17/2020 4:55 PM EDT Anemia, unspecified type DIFFERENTIAL, AUTOMATED Routine 05/17/2020 4:55 PM EDT Anemia, unspecified type HC VENIPUNCTURE Routine 05/17/2020 4:55 PM EDT Anemia, unspecified type EKG 12-LEAD Routine 05/17/2020 3:45 PM EDT Palpitation documented in this encounter Results * Differential, Automated (05/17/2020 4:55 PM EDT) Neutrophil % 50.5 % [facility] Neutrophil Absolute 3.48 1.70 - 6.10 x10(3)/[facility] Lymph % 39.9 % [facility] Lymphocytes Abs 2.8 0.9 - 3.2 x10(3)/[facility] Monocyte % 7.2 % [facility] Monocyte Abs 0.5 0.3 - 0.9 x10(3)/[facility] Eos % 1.7 % [facility] Eosinophils Abs 0.1 0.0 - 0.4 x10(3)/[facility] Basophil % 0.7 % [facility] Baso Absolute 0.0 0.0 - 0.1 x10(3)/[facility] Immature Gran % 0.00 % [facility] Comment: Immature granulocytes(IG's)percentage and absolute count will include metamyelocytes, myelocytes, and promyelocytes. Blood smears from CBCs yielding IG's will be scanned manually for concordance. If this scan disagrees with the automated IG or if promyelocytes are noted, a manual differential will be performed. Immature Gran Absolute 0.00 0.00 - 0.04 x10(3)/[facility] Blood specimen (specimen) 05/17/2020 4:55 PM EDT 05/17/2020 7:10 PM EDT Narrative Resulting Agency Comment Spec In Lab Manuel Asher MD HEMATOLOGY ORDERABLE S [facility] [address] * (ABNORMAL) Hemogram (05/17/2020 4:55 PM EDT) White Blood Cell 6.9 4.0 - 9.5 x10(3)/mc L [facility] Red Blood Cell 4.10(L) 4.58 - 5.54 x10(6)/mc L [facility] Hemoglobin 12.5(L) 13.7 - 16.5 gm/dL [facility] Hematocrit 39.4(L) 40.5 - 48.5 % [facility] Mean Cell Volume 96.1(H) 82.9 - 93.1 fL [facility] Mean Cell Hemoglobin 30.5 27.5 - 32.1 pg [facility] Mean Cell Hemoglobin Concentration 31.7(L) 32.0 - 35.7 gm/dL [facility] Platelet 202 145 - 357 x10(3)/mc L [facility] RDW Standard Deviation 50.5(H) 36.0 - 45.0 fL [facility] RDW coefficient of variation 14.4(H) 11.4 - 13.8 % [facility] Mean Platelet Volume 10.1 7.6 - 12.9 fL [facility] NRBC% auto 0.0 % [facility] NRBC Absolute 0.000 0.000 - 0.000 x10(3)/mc L [facility] Blood specimen (specimen) 05/17/2020 4:55 PM EDT 05/17/2020 7:10 PM EDT Narrative Resulting Agency Comment Spec In Lab Manuel Asher MD HEMATOLOGY ORDERABLE S Performing Organization Address City/[facility]/ZIP Co de Phone Number [facility] [address] * EKG 12 Lead (05/17/2020 3:45 PM EDT) Ventricular rate 69 BPM MUSE SYSTEM Atrial Rate 69 BPM MUSE SYSTEM P-R Interval 174 ms MUSE SYSTEM QRS Duration 160 ms MUSE SYSTEM Q-T Interval 434 ms MUSE SYSTEM QTC Calculated (Bezet) 465 ms MUSE SYSTEM Calculated P [place] 76 degrees MUSE SYSTEM Calculated R [place] -75 degrees MUSE SYSTEM Calculated T [place] 66 degrees MUSE SYSTEM INTERPRETATION Normal sinus rhythm Right bundle branch block Left anterior fascicular block Bifascicular block Cannot rule out Septal infarct (cited on or before 11-NOV-2011) Abnormal ECG When compared with ECG of 22-MAR-2016 08:26, No significant change was found Confirmed by Viviana Montano ([id number]) on 05/18/2020 11:46:28 AM MUSE SYSTEM 05/17/2020 3:45 PM EDT 05/18/2020 11:46 AM EDT Mirlande New MD ECG ORDERABLES Performing Organization Address City/[facility]/ZIP Co de Phone Number MUSE SYSTEM documented in this encounter Visit Diagnoses Diagnosis Palpitation Palpitations Anemia, unspecified type documented in this encounter Care Teams Treatment Plant Mechanic Relationship Specialty Start Date End Date Reji Adams MD [facility] GENER[facility] [place] [address] PCP - General General Internal Medicine 07/13/15 documented as of this encounter
--- OUTSIDE RECORDS SUMMARY | 2024-07-09 11:11 | XMS_ITS | Encounter Summary ---
Author Organization Formerly [facility] [place] [address] Care Team Providers Care Geothermal Hvac Technician Name Role Phone Reji Adams MD Primary Care Provider Encounter Details Date Type Department Care Team (Latest Contact Info) Description 03/08/2020 7:05 AM EDT Laboratory Appointment Lab [address] [place] [phone] Weight loss; Fatigue, unspecified type; Abnormal finding of blood chemistry, unspecified ; Other specified diseases of pancreas Social History Tobacco Use Types Packs/Day Years [...] 11:30 AM EDT Office [place] [phone] Charline Ziegler MD [facility] [place] [address] documented as of this encounter Procedures Procedure Name Priority Date/Time Associated Diagnosis Comments CRYPTOSPORIDIUM OOCYST ANTIGEN ([facility]/CGP/APD) Routine 03/08/2020 9:30 AM EDT Weight loss HC GIARDIA ANTIGEN NOVA METHOD Routine 03/08/2020 9:30 AM EDT Weight loss HC PC ELASTASE, STOOL Routine 0 9:30 AM EDT Weight loss HC PC FAT QUANTITATIVE FECES Routine 03/08/2020 9:30 AM EDT Weight loss GIARDIA ANTIGEN ([facility]/CGP/APD/NLH) Routine 03/08/2020 9:30 AM EDT Weight loss HEMOGRAM Routine 03/08/2020 7:25 AM EDT Weight loss Fatigue, unspecified type DIFFERENTIAL, AUTOMATED Routine 03/08/20 20 7:25 AM EDT Weight loss Fatigue, unspecified type HC IRON BINDING CAPACITY Routine 03/08/2020 7:25 AM EDT Abnormal finding of blood chemistry, unspecified Weight loss HC PCH VITAMIN A Routine 03/08/2020 7:25 AM EDT Weight loss HC VITAMIN D TOTAL-25 HYDROXY Routine 03/08/2020 7:25 AM EDT Other specified diseases of pancreas Weight loss HC CBC,PLT & AUTO DIFF Routine 0 7:25 AM EDT Weight loss Fatigue, unspecified type HC PCH VITAMIN E Routine 03/08/2020 7:25 AM EDT Weight loss HC VENIPUNCTURE Routine 03/08/2020 7:25 AM EDT Weight loss HC LIPASE Routine 03/08/2020 7:25 AM EDT Weight loss HC PCH GASTRIN, SERUM Routine 03/08/2020 7:25 AM EDT Weight loss HC FOLATE, SERUM Routine 03/08/2020 7:25 AM EDT Weight loss HC FERRITIN, SERUM Routine 03/08/2020 7: 25 AM EDT Abnormal finding of blood chemistry, unspecified Weight loss HC VITAMIN B12 SERUM Routine 03/08/2020 7:25 AM EDT Weight loss Fatigue, unspecified type HC AMYLASE Routine 03/08/2020 7:25 AM EDT Weight loss COMPREHENSIVE METABOLIC PANEL Routine 03/08/2020 7:25 AM EDT Weight loss documented in this encounter Results * Cryptosporidium Oocyst Antigen ([facility]/CGP/APD) (03/08/2020 9:30 AM EDT) Cryptosporidium Antigen Negative Negative [facility] Stool specimen (specimen) 03/08/2020 9:30 AM EDT 03/08/2020 1:14 PM EDT Narrative Resulting Agency Comment Spec In Lab Kristofer Ravi MD MICROBIOLOGY - GENER AL ORDERABLES Performing Organization Address City/[facility]/ZIP Co de Phone Number [facility] [place] [address] * Giardia antigen ([facility]/CGP/APD) (03/08/2020 9:30 AM EDT) Giardia Antigen Negative Negative [facility] Comment:Examination for othe r intestinal parasites requires foreign travel history. Stool specimen (specimen) 03/08/2020 9:30 AM EDT 03/08/2020 1:14 PM EDT Narrative Resulting Agency Comment Spec In Lab Kristofer Ravi MD MICROBIOLOGY - GENER AL ORDERABLES [facility] [place] [address] * (ABNORMAL) Fecal Fat Quantitative: 72 hour collection (03/08/2020 9:30 AM EDT) Pathologist [facility] Stool Weight (NOVEMBER) 17 gm [facility] Comment: REVISED RESULTS PREVIOUSLY REPORTED 17 A typical adult stool collection contains between 100 and 200 grams of stool per 24 hours. ??The amount submitted for testing was less than 100 grams/24 hours; therefore, reliable results may not be obtained. Repeat collection is recommended. (Reported 03/10/2020 08:15) Test Performed by: [place] [address] Activity Therapist: Rigo Ahmadi M.D. Ph.D.; CLIA# [id number] Corrected from 17 gm [NA] on 03/15/20 10:30:10 EDT by [employer] ([place])system, [place]. Hrs Stool (NOVEMBER) Random hour(s) [facility] Comment: REVISED RESULTS More reliable results can be obtained from a timed collection. 48 and 72 hour collections will give the most reliable results. Percent Fat >20% in a random collection is suggestive of a fat malabsorption disorder and should be confirmed with a timed collection. PREVIOUSLY REPORTED 72 (Reported 03/10/2020 08:15) Test Performed by: [address] [address] Activity Therapist: Rigo Ahmadi M.D. Ph.D.; CLIA# [id number] Corrected from Random hour(s) [NA] on 03/15/20 10:30:10 EDT. Total Fat Stool (NOVEMBER) NA [facility] %Fat Stl (NOVEMBER) 20(H) <20 % fat [facility] Comment: REVISED RESULTS ADDITIONAL INFORMATION This test was developed and its performance characteristics determined by [facility] in a manner consistent with CLIA requirements. This test has not been cleared or approved by the U.S. Food and Drug Administration. PREVIOUSLY REPORTED DNR (Reported 03/10/2020 08:15) Test Performed by: [place] [address] Activity Therapist: Rigo Ahmadi M.D. Ph.D.; CLIA# [id number] Stool specimen (specimen) 03/08/2020 9:30 AM EDT 03/08/2020 4:07 PM EDT Narrative Resulting Agency Comment Spec In Lab Kristofer Ravi MD LAB SEND OUT ORDERAB LES [facility] [place] [address] * Elastase, Stool (03/08/2020 9:30 AM EDT) Elastase Stool (QST) 329 mcg/gm [facility] Comment: Adult and Pediatric Reference Ranges for ??Pancreatic Elastase-1: ? Normal: ?>200 mcg/g Moderate Pancreatic ?Insufficiency: ?? 100-200 mcg/g ??Severe Pancreatic ?Insufficiency: ?<100 mcg/g Elastase-1 (E-1) assay results are expressed in mcg/g, which represent mcg E1/g feces. It is not necessary to interrupt enzyme substitution therapy. Test performed by [facility] ?[address], ?[place] [address] ? Event Specialist: Reina Lyn MD,PHD,TONY Test Reported by [facility], [place], [facility], [address] [place], [place] Law Duke M.D., Ph.D., Director of Laboratories , [facility] [id number] Stool specimen (specimen) 03/08/2020 9:30 AM EDT 03/09/2020 11:43 AM EDT Narrative Resulting Agency Comment Spec In Lab Kristofer Ravi MD LAB SEND OUT ORDERAB LES [facility] [place] [address] * Differential, Automated (03/08/2020 7:25 AM EDT) Neutrophil % 45.6 % [facility] Neutrophil Absolute 2.57 1.70 - 6.10 x10(3)/[facility] Lymph % 42.3 % [facility] Lymphocytes Abs 2.4 0.9 - 3.2 x10(3)/[facility] Monocyte % 7.3 % [facility] Monocyte Abs 0.4 0.3 - 0.9 x10(3)/[facility] Eos % 3.9 % [facility] Eosinophils Abs 0.2 0.0 - 0.4 x10(3)/[facility] Basophil % 0.7 % [facility] Baso Absolute 0.0 0.0 - 0.1 x10(3)/[facility] Immature Gran % 0.20 % [facility] Comment: Immature granulocytes(IG's)percentage and absolute count will include metamyelocytes, myelocytes, and promyelocytes. Blood smears from CBCs yielding IG's will be scanned manually for concordance. If this scan disagrees with the automated IG or if promyelocytes are noted, a manual differential will be performed. Immature Gran Absolute 0.01 0.00 - 0.04 x10(3)/[facility] Blood specimen (specimen) 03/08/2020 7:25 AM EDT 03/08/2020 7:33 AM EDT Narrative Resulting Agency Comment Spec In Lab Ximena Garza MD HEMATOLOGY ORDERABL ES Performing Organization Address [facility] Co de Phone Number [facility] [place] [address] * (ABNORMAL) Hemogram (03/08/2020 7:25 AM EDT) White Blood Cell 5.6 4.0 - 9.5 x10(3)/[facility] Red Blood Cell 4.80 4.58 - 5.54 x10(6)/[facility] Hemoglobin 14.7 13.7 - 16.5 gm/dL [facility] Hematocrit 43.1 40.5 - 48.5 % [facility] Mean Cell Volume 89.8 82.9 - 93.1 [facility] Mean Cell Hemoglobin 30.6 27.5 - 32.1 pg [facility] Mean Cell Hemoglobin Concentration 34.1 32.0 - 35.7 gm/dL [facility] Platelet 179 145 - 357 x10(3)/[facility] RDW Standard Deviation 46.2(H) 36.0 - 45.0 [facility] RDW coefficient of variation 13.9(H) 11.4 - 13.8 % [facility] Mean Platelet Volume 9.2 7.6 - 12.9 [facility] NRBC% auto 0.0 % [facility] NRBC Absolute 0.000 0.000 - 0.000 x10(3)/[facility] Blood specimen (specimen) 03/08/2020 7:25 AM EDT 03/08/2020 7:33 AM EDT Narrative Resulting Agency Comment Spec In Lab Ximena Garza MD HEMATOLOGY ORDERABL ES Performing Organization Address City/[facility]/ZIP Co de Phone Number [facility] [place] [address] * Vitamin E (03/08/2020 7:25 AM EDT) [facility] Vitamin E 11.1 5.5 - 17.0 mg/L [facility] Comment: ADDITIONAL INFORMATION This test was developed and its performance characteristics determined by [facility] in a manner consistent with CLIA requirements. This test has not been cleared or approved by the U.S. Food and Drug Administration. Test Performed by: [facility] [place] [address] Activity Therapist: Rigo Ahmadi M.D. Ph.D.; CLIA# [id number] Blood specimen (specimen) 03/08/2020 7:25 AM EDT 03/08/2020 2:23 PM EDT Narrative Resulting Agency Comment Spec In Lab Kristofer aRvi MD LAB SEND OUT ORDERAB LES Performing Organization Address [facility] de Phone Number [facility] [place] [address] * Vitamin D, 25-Hydroxy (03/08/2020 7:25 AM EDT) [facility] Vitamin D Total 25 OH 50 21 - 100 ng/mL [facility] Comment: Please note, effective December 01, 2019, additional result field for Vitamin D Interpretation, and updated flagging notification. Vit D Interp Sufficient [facility] Blood specimen (specimen) 03/08/2020 7:25 AM EDT 03/08/2020 7:33 AM EDT Narrative Resulting Agency Comment Spec In Lab Kristofer Ravi MD CHEMISTRY ORDERABLES Performing Organization Address [facility] Co de Phone Number [facility] [place] [address] * Vitamin A (03/08/2020 7:25 AM EDT) [facility] Vitamin A (NOVEMBER) 41.0 32.5 - 78.0 mcg/dL [facility] Comment: ADDITIONAL INFORMATION This test was developed and its performance characteristics determined by [facility] in a manner consistent with CLIA requirements. This test has not been cleared or approved by the U.S. Food and Drug Administration. Test Performed by: [facility] [address] [place] [address] Activity Therapist: Rigo Ahmadi M.D. Ph.D.; CLIA# [id number] Blood specimen (specimen) 03/08/2020 7:25 AM EDT 03/08/2020 2:23 PM EDT Narrative Resulting Agency Comment Spec In Lab Kristofer Ravi MD LAB SEND OUT ORDERAB LES Performing Organization Address City/[facility]/ZIP Co de Phone Number [facility] [place] [address] * Ferritin (03/08/2020 7:25 AM EDT) [facility] Ferritin 198 30 - 400 ng/mL [facility] Comment: Pediatric reference ranges not verified at [facility], interpret with caution. Reference ranges for females greater than 50 years of age approach values for men, i.e., 30-400 ng/mL. Blood specimen (specimen) 03/08/2020 7:25 AM EDT 03/08/2020 7:33 AM EDT Narrative Resulting Agency Comment Spec In Lab Kristofer Ravi MD CHEMISTRY ORDERABLES Performing Organization Address [facility]/ZIP Co de Phone Number [facility] [place] [address] * Folate, serum (03/08/2020 7:25 AM EDT) [facility] Folate >20.0 4.8 - 24.2 ng/mL [facility] Blood specimen (specimen) 03/08/2020 7:25 AM EDT 03/08/2020 7:33 AM EDT Narrative Resulting Agency Comment Spec In Lab Kristofer Ravi MD CHEMISTRY ORDERABLES Performing Organization Address [facility]/ZIP Co de Phone Number [facility] [place] [address] * Gastrin (03/08/2020 7:25 AM EDT) Pathologist [facility] Gastrin (NOVEMBER) <10 pg/mL [facility] Comment: REFERENCE VALUE <100 Reference ranges valid for >= 8 hour fast. Test Performed by: [facility] [place] [address] Activity Therapist: Rigo Ahmadi M.D. Ph.D.; CLIA# [id number] Blood specimen (specimen) 03/08/2020 7:25 AM EDT 03/08/2020 4:07 PM EDT Narrative Resulting Agency Comment Spec In Lab Kristofer Ravi MD LAB SEND OUT ORDERAB LES Performing Organization Address [facility] Co de Phone Number [facility] [place] [address] * Iron and TIBC (03/08/2020 7:25 AM EDT) [facility] Iron 91 45 - 160 mcg/dL [facility] TIBC 262 250 - 450 mcg/dL [facility] Iron Saturation 35 20 - 50 % [facility] Blood specimen (specimen) 03/08/2020 7:25 AM EDT 03/08/2020 7:33 AM EDT Narrative Resulting Agency Comment Spec In Lab Kristofer Ravi MD CHEMISTRY ORDERABLES Performing Organization Address City/[facility]/ZIP Co de Phone Number [facility] [place] [address] * Comprehensive metabolic panel (non-fasting) (03/08/2020 7:25 AM EDT) Glucose 94 65 - 199 mg/dL [facility] Comment:Diabetes: >=200 mg/d L plus symptoms Blood Urea Nitrogen 13 10 - 20 mg/dL [facility] Creatinine 1.01 0.80 - 1.50 mg/dL [facility] Sodium 142 135 - 145 mmol/L [facility] Potassium 4.1 3.5 - 5.0 mmol/L [facility] Comment: Please note: ??Patients with WBC >100,000 may have falsely elevated Potassium levels. ??For accurate Potassium quantification in these patients send serum separator tube (gold top) for subsequent determinations. ??Contact the Clinical Chemistry Laboratory if there are any questions. Chloride 105 98 - 107 mmol/L [facility] Carbon Dioxide 26 22 - 31 mmol/L [facility] Anion Gap 11 5 - 15 mmol/L [facility] Calcium 9.5 8.5 - 10.5 mg/dL [facility] Protein, Total 6.6 6.1 - 8.0 gm/dL [facility] Albumin 4.4 3.2 - 5.2 gm/dL [facility] Aspartate Aminotransferase 15 0 - 39 unit/L [facility] Alanine Aminotransferase 12 0 - 55 unit/L [facility] Alkaline Phosphatase 51 40 - 130 unit/L [facility] Bilirubin, Total 0.9 0.2 - 1.3 mg/dL [facility] Est Glomerular Filtration Rate 73 >=60 mL/min/1. 73 m?? [facility] Comment: The eGFR was calculated using the CKD-EPI equation. As with all creatinine based estimates of kidney function, eGFR values calculated with the CKD-EPI equation are not accurate in patients with acute kidney failure, extremes of body mass or the acutely ill. http://[employer]/[facility]ULSAnkf eGFR 85 >=60 mL/min/1. 73 m?? [facility] Comment: The eGFR was calculated using the CKD-EPI equation. As with all creatinine based estimates of kidney function, eGFR values calculated with the CKD-EPI equation are not accurate in patients with acute kidney failure, extremes of body mass or the acutely ill. http://[employer]/[facility]MCnkf Blood specimen (specimen) 03/08/2020 7:25 AM EDT 03/08/2020 7:33 AM EDT Narrative Resulting Agency Comment Spec In Lab Ximena Garza MD CHEMISTRY ORDERABLE S Performing Organization Address City/[facility]/ZIP Co de Phone Number [facility] [place] [address] * Vitamin B12 (03/08/2020 7:25 AM EDT) Vitamin B12 1,060 232 - 1,245 pg/mL [facility] Blood specimen (specimen) 03/08/2020 7:25 AM EDT 03/08/2020 7:33 AM EDT Narrative Resulting Agency Comment Spec In Lab Ximena Garza MD CHEMISTRY ORDERABLE S Performing Organization Address [facility] Co de Phone Number [facility] [place] [address] * Amylase (03/08/2020 7:25 AM EDT) Amylase 75 28 - 100 unit/L [facility] Blood specimen (specimen) 03/08/2020 7:25 AM EDT 03/08/2020 7:33 AM EDT Narrative Resulting Agency Comment Spec In Lab Ximena Garza MD CHEMISTRY ORDERABLE S Performing Organization Address City/[facility] Co de Phone Number [facility] [place] [address] * (ABNORMAL) Lipase (03/08/2020 7:25 AM EDT) Lipase 71(H) 0 - 60 unit/L [facility] Blood specimen (specimen) 03/08/2020 7:25 AM EDT 03/08/2020 7:33 AM EDT Narrative Resulting Agency Comment Spec In Lab Ximena Garza MD CHEMISTRY ORDERABLE S Performing Organization Address City/[facility] Co de Phone Number [facility] [place] [address] * TSH (03/08/2020 7:25 AM EDT) Thyroid Stimulating Hormone 1.79 0.27 - 4.20 mcIU/mL [facility] Blood specimen (specimen) 03/08/2020 7:25 AM EDT 03/08/2020 7:33 AM EDT Narrative Resulting Agency Comment Spec In Lab Ximena Garza MD CHEMISTRY ORDERABLE S Performing Organization Address [facility] Co de Phone Number [facility] [place] [address] documented in this encounter Visit Diagnoses Diagnosis Weight loss Loss of weight Fatigue, unspecified type Abnormal finding of blood chemistry, unspecified Other specified diseases of pancreas documented in this encounter Care Teams Geothermal Hvac Technician Relationship Specialty Start Date End Date Reji Adams MD [facility] [place] [address] PCP - General General Internal Medicine 07/13/15 documented as of this encounter
--- OUTSIDE RECORDS SUMMARY | 2024-07-09 11:11 | XMS_ITS | Encounter Summary ---
Author Organization [facility] Address [facility] [place] [address] Care Team Providers Care Pad Machine Offbearer Name Role Phone Reji Adams MD Primary Care Provider [phone] Encounter Details Date Type Department Care Team (Late st Contact Info) Description 04/07/2020 Transcribe [place] [phone] Rigo Rocha MD [address] [place] [id number] Erectile dysfunction of organic origin; Spermatocele of epididymis; Malignant neoplasm of prostate Social History Tobacco [...] 11:30 AM EDT Office [place] [phone] Charline Ziegler MD [facility] [place] [address] documented as of this encounter Results * PSA Screen (04/20/2020 11:15 AM EDT) PSA Screen 0.02 0.00 - 4.00 ng/mL [facility] Comment: PLEASE NOTE: The above reference interval is intended for healthy males with an intact prostate. Values within this reference interval may indicate recurrence in men who have undergone radical prostatectomy. 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
--- OUTSIDE RECORDS SUMMARY | 2024-07-09 11:11 | XMS_ITS | Encounter Summary ---
Author Organization [facility] Address [facility] Ximena palmer [place] [id number] Care Team Providers Care Stunt Man Name Role Phone Reji Adams MD Primary Care Provider [phone] Reason for Referral * Consultation (Routine) - Specialty Diagnoses / Procedures Referred By Contsushma t Referred To Contact Gastroenterology Diagnoses Constipation, unspecified constipation type Constipation, unspecified constipation type Reji Adams MD [facility] [place] [address] Kristofer Ravi MD [facility] [place] [place] [address] Referral ID Status Reason Start Date Expiration Date Visits Requested Visits Authorized [id number] Specialty Service Requested 01/25/2020 01/24/2021 1 1 Encounter Details Date Type Department Care Team (Late st Contact Info) Description 01/25/2020 Orders [place] [address] Reji Adams MD [facility] [address] Constipation, unspecified constipation type (Primary Dx) Social History Tobacco Use Types [...] 11:30 AM EDT Office [place] [address] Charline Ziegler MD [facility] [place] [address] Scheduled Referrals Name Type Priority Associated Diagnoses Order Schedule Referral to Gastroenterology Outpatient Referral Routine Constipation, unspecified constipation type Ordered: 01/25/2020 documented as of this encounter Visit Diagnoses Diagnosis Constipation, unspecified constipation type- Primary documented in this encounter Care Teams Stunt Man Relationship Specialty Start Date End Date Reji Adams MD [facility] [address] PCP - General General Internal Medicine 07/13/15 documented as of this encounter
--- OUTSIDE RECORDS SUMMARY | 2024-07-09 11:11 | XMS_ITS | Encounter Summary ---
Author Organization [facility] Address [facility] [place] [address] Care Team Providers Care Pipe Joints Supervisor Name Role Phone Reji Adams MD Primary Care Provider [phone] Encounter Details Date Type Department Care Team (Latest Contact Info) Description 08/01/2020 8:30 AM EST Laboratory Appointment Lab at [address] [phone] Hyperlipidemia, unspecified hyperlipidemia type Social History Tobacco Use Types Packs/Day [...] 11:30 AM EDT Office [place] [address] Charline Ziegler MD [facility] [place] [address] documented as of this encounter Procedures Procedure Name Priority Date/Time Associated Diagnosis Comments HC VENIPUNCTURE Routine 08/01/2020 8:37 AM EST Hyperlipidemia, unspecified hyperlipidemia type documented in this encounter Results * Lipid Panel (Reflex Direct LDL) (08/01/2020 8:37 AM EST) Cholesterol, Total 157 mg/dL [place] [facility] Comment: Lower Risk: <200 mg/dL Average Risk: 200-239 mg/dL Higher Risk: >zv=193 mg/dL Triglyceride 62 mg/dL [facility] Comment: Average Risk/Lower Risk: <150 mg/dL Borderline High Risk: 150-199 mg/dL High Risk: 200-499 mg/dL Very High Risk: >jg=551 mg/dL HDL Cholesterol 72 mg/dL [facility] Comment: Males: ?? Higher Risk: <40 mg/dL Females: ?? HIgher Risk: <50 mg/dL LDL Cholesterol 73 mg/dL [facility] Comment: Lowest Risk: <100 mg/dL Lower Risk: 100-129 mg/dL Borderline High Risk: 130-159 mg/dL High Risk: 160-189 mg/dL Very High Risk: >ep=759 mg/dL Cholesterol/HDL Ratio 2.2 ratio [facility] Lipid Interpretation See Note [facility] Comment: Lipid management should be guided by a patient? s ASCVD risk, goals and preferences. ACC/AHA Guidelines recommend high intensity statin if clinical ASCVD or LDL greater than or equal to 190 mg/dL. http://RemitProurl.com/JXZ-SFC-Xhljlpijg Adults aged 40-75 with LDL 70-189 mg/dL should have their 10 year ASCVD risk estimated with the ACC/AHA ASCVD risk building estimator http://tools.acc.org/VKXSY-Smvj-Mjryvcwgb/ Statin should be discussed if risk greater [...] critical component of ASCVD risk reduction. Blood specimen (specimen) 08/01/2020 8:37 AM EST 08/01/2020 11:14 AM EST Narrative Resulting Agency Comment Spec In Lab Reji Adams MD CHEMISTRY ORDERABLES [facility] [place] [address] documented in this encounter Visit Diagnoses Diagnosis Hyperlipidemia, unspecified hyperlipidemia type documented in this encounter Care Teams Pipe Joints Supervisor Relationship Specialty Start Date End Date Reji Adams MD [facility] [address] [place] [address] PCP - General General Internal Medicine 07/13/15 documented as of this encounter
--- OUTSIDE RECORDS SUMMARY | 2024-07-09 11:11 | XMS_ITS | Encounter Summary ---
Author Organization [facility] [place] [address] Care Team Providers Care Lasting Room Supervisor Name Role Phone Reji Adams MD Primary Care Provider [phone] Encounter Details Date Type Department Care Team (Late st Contact Info) Description 05/17/2020 Orders Only Internal Medicine at [address] [address] Manuel Asher MD [facility] [place] [address] Social History Tobacco Use Types Packs/Day Years [...] AM EDT Office Visit [place] [address] Charline Ziegler MD [facility] [place] [address] documented as of this encounter Visit Diagnoses Not on filedocumented in this encounter Care Teams Lasting Room Supervisor Relationship Specialty Start Date End Date Reji Adams MD [facility] [place] [address] PCP - General General Internal Medicine 07/13/15 documented as of this encounter
--- OUTSIDE RECORDS SUMMARY | 2024-07-09 11:11 | XMS_ITS | Encounter Summary ---
Author Organization [facility] [place] [address] Care Team Providers Care Marker Machine Attendant Name Role Phone Reji Adams MD Primary Care Provider Reason for Visit * Reason Onset Date Comments Medication Refill 03/16/2020 Encounter Details Date Type Department Care Team (Late st Contact Info) Description 03/16/2020 Refill Internal Medicine at [address] [address] Reji Adams MD [facility] [place] [address] Anxiety Social History Tobacco Use Types Packs/Day [...] 11:30 AM EDT Office Visit [place] [address] Charline Ziegler MD [facility] [place] [address] documented as of this encounter Visit Diagnoses Diagnosis Anxiety Anxiety state, unspecified documented in this encounter Care Teams Marker Machine Attendant Relationship Specialty Start Date End Date Reji Adams MD [facility] [place] [address] PCP - General General Internal Medicine 07/13/15 documented as of this encounter
--- OUTSIDE RECORDS SUMMARY | 2024-07-09 11:11 | XMS_ITS | Encounter Summary ---
[place] [address] Care Team Providers Care Production Machine Tender Name Role Phone Reji Adams MD Primary Care Provider [phone] Encounter Details Date Type Department Care Team (Late st Contact Info) Description 02/01/2020 Telephone [place] [phone] Yoly Ha Social History Tobacco Use Types Packs/Day Years [...] encounter Miscellaneous Notes * Telephone Encounter - Yoly Ha - 02/02/2020 11:16 AM EDT Scheduled. * Telephone Encounter - Yoly Ha - 02/01/2020 7:47 AM EDT Left message for patient to contact the office for scheduling. Per Dr Breonna SOLIS, the patient needs baltazar scheduled for a CTE, barium swallow and 4 month STEPHANIE appointment with Amanda after testing. documented in this encounter Plan of Treatment Upcoming Encounters Date Type Department Care Team (Late st Contact Info) Description 12/15/2024 11:30 AM EDT Office [place] [address] Charline Ziegler MD [facility] [place] [address] documented as of this encounter Visit Diagnoses Not on filedocumented in this encounter Care Teams Production Machine Tender Relationship Specialty Start Date End Date Reji Adams MD [facility] [place] [address] PCP - General General Internal Medicine 07/13/15 documented as of this encounter
--- OUTSIDE RECORDS SUMMARY | 2024-07-09 11:11 | XMS_ITS | Encounter Summary ---
Author Organization [facility] Address [facility] [place] [address] Care Team Providers Care Lease Attendant Name Role Phone Reji Adams MD Primary Care Provider [phone] Encounter Details Date Type Department Care Team (Late st Contact Info) Description 03/14/2020 9:29 AM EDT Anesthesia [place] [address] Arlette Lujan MD [facility] [place] [address] Anesthesia Record Procedure Summary Procedure Name Responsible Anesthesiologist Anesthesia Start Time Anesthesia Stop Time UPPER EUS- ENDOSCOPIC ULTRASOUND (WRVU 3.47) (Trunk) Arlette Lujan MD 03/14/20 0929 03/14/20 1004 Events Date Time Event Comment 03/14/2020 0849 0929 AN Verify 0929 Start 0929 An Start Data 0933 An Induction 0935 Anesthesia Ready 0943 Procedure Start 0953 Quick Note Change of scope 1004 an stop data 1004 Recovery or ICU Handoff Cecilia ent care was transferred to the destination unit staff after review of the patient's medical history, current anesthetic/surgical status and plan, according to the Provider Handoff Checklist. 1004 Stop Meds Name Total IV Lidocaine 80 mg Propofol INF 398.4 mg Dexmedetomidine 4 mcg PHENYLephrine 320 mcg lactated ringers infusion 150 mL * Agents Name O2 Air N2O O2 Auxiliary Flowmeter 1 * Blood No blood administrations on file. Lines, Drains, and Airways Type Details Placement Removal Incision 06/02/12; groin; 03/25/22 (LDA cleanup utility RA#[id number]); 1715 (LDA cleanup utility RA#[id number]) 06/02/12 0000 by Seth Laws RN 03/25/22 1715 by Shukri Blanca Incision 06/02/12; leg; 03/25/22 (LDA cleanup utility RA#[id number]); 1715 (LDA cleanup utility RA#[id number]) 06/02/12 0000 by Seth Laws, AGNIESZKA 03/25/22 1715 by Shukri Blanca (RETIRED) Peripheral IV Line - Single Lumen 03/14/20; 0850; metacarpal vein (top of hand), right; [id number] catheter system; 22 gauge, 1 in length; Dimas Guillory; intradermal injection, tolerated well, appears comfortable; 0; metacarpal vein (top of hand), right; 03/14/20; 1039 03/14/20 0850 by Selena Tejeda RN 03/14/20 1039 by Say Castillo RN documented in this encounter Social History Tobacco [...] OR Notes * Anesthesia Postprocedure Evaluation - Arlette Lujan MD - 03/16/2020 4:00 PM EDT Department of Anesthesiology Post-procedure Note Patient: Ken Mckeon Procedure Summary Date: 03/14/20 Room / Location: [facility] ENDO 3 / [facility] Anesthesia Start: 928 Anesthesia Stop: 1003 Procedures: UPPER EUS- ENDOSCOPIC ULTRASOUND (N/A Trunk) EGD WITH BIOPSY (WRVU 2.49) (N/A Trunk) Diagnosis: (Weight loss) (upper EUS with anesthesia. INDICATION: weight loss, greasy stools) Surgeon: Festus Carballo MD Responsible Provider: Arlette Lujan MD Anesthesia Type: MAC ASA Status: 2 All Anesthesia Providers: Anesthesiologist: Arlette Lujan MD PUBLIC STENOGRAPHER: Tressa Angulo CRNA Vitals Value Taken Time BP 104/64 03/14/20 1034 Temp Pulse Resp 18 03/14/20 1034 SpO2 98 % 03/14/20 1034 Pain Level 0 03/14/20 1034 Patient Location: PACU/[facility] Level of Consciousness: Awake and Alert Pain Management: Satisfactory Analgesia PONV: None Cardiovascular Status: At Baseline and Hemodynamically Stable Respiratory Status: At Baseline and Room Air Postoperative Fluid Status: Intravascular EUvolemia Possible Anesthetic Complications: NONE apparent at time of evaluation Final Primary Anesthesia Type: General (The anesthetic type performed was the same as planned.) Comments: ARLETTE LUJAN MD * Anesthesia Preprocedure Evaluation - Arlette Lujan MD - 03/14/2020 8:48 AM EDT Pre-Anesthesia Evaluation for: Ken Mckeon a 74 y.o. male. Procedure(s): UPPER EUS- ENDOSCOPIC ULTRASOUND Patient Active Problem List Diagnosis ??? Malignant [...] knee replacement TKR Right knee in 2007 Past Medical History: Diagnosis Date ??? BPH (benign prostatic hyperplasia) ??? Neck pain 08/24/2012 ??? OA (osteoarthritis) of knee right Past Surgical History: Procedure Laterality Date ??? CREATED BY INTERFACE Past surg hx. Procedure Date: 09/19/2010 ??? PRO COLONOSCOPY, DIAGNOSTIC 09/07/2013 COLONOSCOPY, DIAGNOSTIC performed by Ximena Gu MD at [facility] ENDOSCOPY ??? PRO COLONOSCOPY, REMV LESN, SNARE N/A 01/25/2020 COLONOSCOPY, POLYPECTOMY, REMOVAL LESION BY SNARE (WRVU 4.67) performed by Michelle Camarillo MDat [facility] ENDOSCOPY ??? PRO LIGATE/STRIP LONG SAPH VEIN BELW SEP-FEM JUNC 06/02/2012 LIGATION\DIV\STRIP GREATER SAPHENOUS VEIN performed by BEATRICE RODRÍGUEZ at [facility] MAIN OR ??? PRO PHLEB VEINS - EXTREM - TO 20 06/02/2012 STAB PHLEBECTOMY KARLI VEINS, EXTREMITY 10-20 INCISIONS-SANTI performed by BEATRICE RODRÍGUEZ at [facility] MAIN OR ??? PRO UPPER GI ENDOSCOPY, BIOPSY N/A 09/02/2017 EGD WITH BIOPSY (WRVU 2.49) performed by Rahul Escobar MD at [facility] ENDOSCOPY ??? PRO UPPER GI ENDOSCOPY, BIOPSY N/A 01/25/2020 EGD WITH BIOPSY (WRVU 2.49) performed by Michelle Camarillo MD at [facility] ENDOSCOPY ??? US GUIDED BIOPSY PROSTATE ([place] ONLY) 02/08/2019 US Guided Transrectal Biopsy 02/08/2019 [facility] RAD ULTRASOUND Social History Tobacco Use ??? Smoking status: Never Smoker ??? Smokeless tobacco: Current User Types: Chew ??? Tobacco comment: 3 cans/ week. Substance Use Topics ??? Alcohol use: Yes Alcohol/week: 0.0 - 1.0 standard drinks Frequency: Monthly or less Drinks per session: 1 or 2 Comment: 1 drink per month Social History Substance and Sexual Activity Drug Use No Allergies Allergen Reactions ??? Penicillins Anaphylaxis Tongue swelling ??? Betamethasone hiccups after injection ??? Dexamethasone Hiccups after injection Medications: MAR and/or home medications have been reviewed. Physical Exam: Patient Vitals for the past 24 hrs: Temp Pulse BP SpO2 O2 Device 03/14/20 0825 36.6 ??C (97.9 ??F) 65 121/77 99 % RA Body mass index is 25.89 kg/m??. Height: 179.1 cm (5' 10.5) Weight: 83 kg (183 lb) Airway Assessment: Mallampati: II TM distance: >3 FB Neck ROM: full Cardiovascular Assessment: Pulmonary Assessment: Dental Assessment: Misc Assessment: Anesthesia Plan: ASA 2 MAC, with a(n) intravenous induction Region - Other Informed Consent: Anesthetic plan and risks discussed with patient. Plan discussed with PUBLIC STENOGRAPHER. PAT Clinic Note documented in this encounter Plan of Treatment Upcoming Encounters Date Type Department Care Team (Late st Contact Info) Description 12/15/2024 11:30 AM EDT Office [place] [phone] Charline Ziegler MD [facility] [place] [address] documented as of this encounter Visit Diagnoses Not on filedocumented in this encounter Administered Medications Inactive Administered Medications - up to 3 most recent administrations Medication Order MAR Action Action Date Dose Rate Site dexmedetomidine (PRECEDEX) injection PRN, Starting on Fri03/14/20 at 0933, Until Fri03/14/20 at 1004, Anesthesia Intra-op, Routine Given 03/14/2020 9:33 AM EDT 4 mcg lactated ringers infusion 100 mL/hr, Intravenous, CONTINUOUS, Starting on Fri03/14/20 at 0830, Until Fri03/14/20 at 1040, Endoscopy (Day of Procedure) New Bag 03/14/2020 9:23 AM EDT New Bag 03/14/2020 8:51 AM EDT 100 mL/hr 100 mL/hr lidocaine (PF) (XYLOCAINE) 100 mg/5 mL (2 %) injection PRN, Starting on Fri03/14/20 at 0933, Until Fri03/14/20 at 1004, Anesthesia Intra-op, Routine Given 03/14/2020 9:33 AM EDT 80 mg PHENYLephrine in NS (PF) (ADE-SYNEPHRINE) 0.8 mg/10 mL (80 mcg/mL) multi-dose injection Syrg PRN, Starting on Fri03/14/20 at 0942, Until Fri03/14/20 at 1004, Anesthesia Intra-op, Routine Given 03/14/2020 9:56 AM EDT 80 mcg Given 03/14/2020 9:53 AM EDT 80 mcg Given 03/14/2020 9:46 AM EDT 80 mcg propofol (DIPRIVAN) infusion CONTINUOUS PRN, Starting on Fri03/14/20 at 0933, Until Fri03/14/20 at 1004, Anesthesia Intra-op, Routine Rate/Dose Change 03/14/2020 9:56 AM EDT 175 mcg/kg/min 87.2 mL/hr Rate/Dose Change 03/14/2020 9:53 AM EDT 200 mcg/kg/min 99. 6 mL/hr Rate/Dose Change 03/14/2020 9:42 AM EDT 175 mcg/kg/min 87. 2 mL/hr documented in this encounter Care Teams Lease Attendant Relationship Specialty Start Date End Date Reji Adams MD [facility] GENER[facility] [place] [address] PCP - General General Internal Medicine 07/13/15 documented as of this encounter
--- OUTSIDE RECORDS SUMMARY | 2024-07-09 11:11 | XMS_ITS | Encounter Summary ---
Author Organization [facility] [place] [address] Care Team Providers Care Park Guard Name Role Phone Reji Adams MD Primary Care Provider [phone] Reason for Visit * Reason Comments Other is having stomach is sues, is having weird stools Fatigue Encounter Details Date Type Department Care Team (Late st Contact Info) Description 03/07/2020 4:20 PM EDT Office [place] [address] Ximena Garza MD Weight loss; Fatigue, unspecified type; Fatty stools Social History Tobacco Use Types Packs/Day Years [...] Sign Reading Time Taken Comments Blood Pressure 99/59 03/07/2020 4:33 PM EDT Pulse 70 03/07/2020 4:33 PM EDT Temperature 37.3 ??C (99.1 ??F) 03/07/2020 4:33 PM ED T Respiratory Rate - - Oxygen Saturation 99% 03/07/2020 4:33 PM EDT Inhaled Oxygen Concentration - - Weight 87 kg (191 lb 12.8 oz) 03/07/2020 4:33 PM EDT Height 181.6 cm (5' 11.5) 03/07/2020 4:33 PM ED T reported Body Mass Index 26.38 03/07/2020 4:33 PM EDT documented in this encounter Patient Instructions * Patient Instructions* Ximena Garza MD - 03/07/2020 4:20 PM EDT 1. Weight loss Still no clear etiology for his weight loss. Malabsorption may explain that and his recent change in stools. Message sent to Dr. Ravi regarding change in stools and need for further testing. - Comprehensive metabolic panel (non-fasting); Future - CBC (with Diff); Future - Vitamin B12; Future - Amylase; Future - Lipase; Future - TSH; Future 2. Fatigue, unspecified type - CBC (with Diff); Future - Vitamin B12; Future 3. Fatty stools documented in this encounter Progress Notes * Ximena Garza MD - 03/07/2020 4:20 PM EDT Chief Complaint Patient presents with ??? Other is having stomach issues, is having weird stools ??? Fatigue Accompanied by: alone HPI: Ken Mckeon is a 74 y.o. male with the following concerns: Change in Stools, Weight loss: Colonoscpoy and EGD at the beginning of this summer: Done for weightloss. Used to run 217 and then started dropping to 178 most recently without any change in diet. Only found a couple polyps. Recently his stool has bene very small in diameter and floating. Has since gained a little weight. Weighs less than he did in high school. Eats well. Stool is formed but fluffy. No black, no blood. 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 No abdominal pain. He is very fatigued. BP runs low. Not dizzy except when he changes position quickly. Very fatigued. Takes a multivitamin. No fever or chills. Due for surgery next month fr bilateral hip replacement. Allergies Allergen Reactions ??? Penicillins Anaphylaxis Tongue [...] by mouth daily. 90 tablet 3 ??? BORON ORAL Take by mouth daily. ??? MALCOLM EXTRACT ORAL [...] 1 tablet by mouth daily. ??? Saw [place] 500 mg capsule Take 500 mg by mouth daily. No current facility-administered medications for this visit. Social History Tobacco Use ??? Smoking status: Never Smoker ??? Smokeless tobacco: Current User Types: Chew ??? Tobacco comment: 3 cans/ week. Substance Use Topics ??? Alcohol use: Yes Alcohol/week: 0.0 - 1.0 standard drinks Frequency: Monthly or less Drinks per session: 1 or 2 Comment: 1 drink per month ??? Drug use: No ROS: Constitutional: Weight loss/gain-none, fever-none, chills- none, fatigue- none, decreased activity-none Cardiac: Dizziness- none GI: abdominal pain- none, nausea- none, vomiting- none, reflux/heartburn- none,diarrhea- none, constipation- none, food intolerance- none, blood in stool- none, black stools- none Physical Exam: Vitals: 03/07/20 1633 BP: 99/59 BP Location (NBP): Left arm Patient Position: Sitting BP Cuff Sizes: Large Adult (32-43 cm) Pulse: 70 Temp: 37.3 ??C (99.1 ??F) TempSrc: Temporal SpO2: 99% Weight: 87 kg (191 lb 12.8 oz) Height: 181.6 cm (5' 11.5) Gen: Alert, no acute distress Chest: Clear breath sounds, good air movement, no wheeze, no rhonchi, no rales CV: Regular rate and rhythm, normal S1 and S2 with no murmur GI: Normal bowel sounds, soft, mild tenderness, mild guarding, no HSM appreciated, no rebound Rectal: deferred Extremities: No edema, no calf tenderness Assessment and Plan: Patient Instructions 1. Weight loss Still no clear etiology for his weight loss. Malabsorption may explain that and his recent change in stools. Message sent to Dr. Ravi regarding change in stools and need for further testing. - Comprehensive metabolic panel (non-fasting); Future - CBC (with Diff); Future - Vitamin B12; Future - Amylase; Future - Lipase; Future - TSH; Future 2. Fatigue, unspecified type - CBC (with Diff); Future - Vitamin B12; Future 3. Fatty stools 35 minutes spent with the patient, >50% in counseling documented in this encounter Plan of Treatment Upcoming Encounters Date Type Department Care Team (Late st Contact Info) Description 12/15/2024 11:30 AM EDT Office [place] [address] Charline Ziegler MD [facility] [place] [address] documented as of this encounter Results * TSH (03/08/2020 7:25 AM EDT) Thyroid Stimulating Hormone 1.79 0.27 - 4.20 mcIU/mL [facility] Blood specimen (specimen) 03/08/2020 7:25 AM EDT 03/08/2020 7:33 AM EDT Narrative Resulting Agency Comment Spec In Lab Ximena Garza MD CHEMISTRY ORDERABLE S [facility] [place] [address] * (ABNORMAL) Lipase (03/08/2020 7:25 AM EDT) Lipase 71(H) 0 - 60 unit/L [facility] Blood specimen (specimen) 03/08/2020 7:25 AM EDT 03/08/2020 7:33 AM EDT Narrative Resulting Agency Comment Spec In Lab Ximena Garza MD CHEMISTRY ORDERABLE S [facility] [place] [address] * Amylase (03/08/2020 7:25 AM EDT) Amylase 75 28 - 100 unit/L [facility] Blood specimen (specimen) 03/08/2020 7:25 AM EDT 03/08/2020 7:33 AM EDT Narrative Resulting Agency Comment Spec In Lab Ximena Garza MD CHEMISTRY ORDERABLE S Performing Organization Address City/[facility]/ZIP Co de Phone Number [facility] [place] [address] * Vitamin B12 (03/08/2020 7:25 AM EDT) Vitamin B12 1,060 232 - 1,245 pg/mL [facility] Blood specimen (specimen) 03/08/2020 7:25 AM EDT 03/08/2020 7:33 AM EDT Narrative Resulting Agency Comment Spec In Lab Ximena Garza MD CHEMISTRY ORDERABLE S [facility] [place] [address] * Comprehensive metabolic panel (non-fasting) (03/08/2020 7:25 AM EDT) Glucose 94 65 - 199 mg/dL [facility] Comment:Diabetes: >=200 mg/d L plus symptoms Blood Urea Nitrogen 13 10 - 20 mg/dL [facility] Creatinine 1.01 0.80 - 1.50 mg/dL [facility] Sodium 142 135 - 145 mmol/L [facility] Potassium 4.1 3.5 - 5.0 mmol/L [facility] Comment: Please note: ??Patients with WBC >100,000 may have falsely elevated Potassium levels. ??For accurate Potassium quantification in these patients send serum separator tube (gold top) for subsequent determinations. ??Contact the Clinical Chemistry Laboratory if there are any questions. Chloride 105 98 - 107 mmol/L [facility] Carbon Dioxide 26 22 - 31 mmol/L [facility] Anion Gap 11 5 - 15 mmol/L [facility] Calcium 9.5 8.5 - 10.5 mg/dL [facility] Protein, Total 6.6 6.1 - 8.0 gm/dL [facility] Albumin 4.4 3.2 - 5.2 gm/dL [facility] Aspartate Aminotransferase 15 0 - 39 unit/L [facility] Alanine Aminotransferase 12 0 - 55 unit/L [facility] Alkaline Phosphatase 51 40 - 130 unit/L [facility] Bilirubin, Total 0.9 0.2 - 1.3 mg/dL [facility] Est Glomerular Filtration Rate 73 >=60 mL/min/1. 73 m?? [facility] Comment: The eGFR was calculated using the CKD-EPI equation. As with all creatinine based estimates of kidney function, eGFR values calculated with the CKD-EPI equation are not accurate in patients with acute kidney failure, extremes of body mass or the acutely ill. http://Wipit/[facility] CITY[facility]f eGFR 85 >=60 mL/min/1. 73 m?? [facility] Comment: The eGFR was calculated using the CKD-EPI equation. As with all creatinine based estimates of kidney function, eGFR values calculated with the CKD-EPI equation are not accurate in patients with acute kidney failure, extremes of body mass or the acutely ill. http://Wipit/[facility] Blood specimen (specimen) 03/08/2020 7:25 AM EDT 03/08/2020 7:33 AM EDT Narrative Resulting Agency Comment Spec In Lab Ximena Garza MD CHEMISTRY ORDERABLE S [facility] [place] [address] documented in this encounter Visit Diagnoses Diagnosis Weight loss Loss of weight Fatigue, unspecified type Fatty stools Other specified intestinal malabsorption documented in this encounter Additional Health Concerns Infection Onset Date Last Indicated Resolved Time Rule Out C. difficile 03/08/2020 03/08/20202019 11:23 AM EDT documented as of this encounter Care Teams Park Guard Relationship Specialty Start Date End Date Reji Adams MD [facility] [place] [address] PCP - General General Internal Medicine 07/13/15 documented as of this encounter
--- OUTSIDE RECORDS SUMMARY | 2024-07-09 11:11 | XMS_ITS | Encounter Summary ---
Author Organization [facility] Address [facility] [place] [address] Care Team Providers Care Director Of Channel Marketing Name Role Phone Reji Adams MD Primary Care Provider Encounter Details Date Type Department Care Team (Late st Contact Info) Description 03/14/2020 9:15 AM EDT - 03/14/2020 10:30 AM EDT Surgery [place] [address] Festus Carballo MD [facility] [place] [address] UPPER EUS- ENDOSCOPIC ULTRASOUND (WRVU 3.47) Social History Tobacco Use Types Packs/Day Years [...] Sign Reading Time Taken Comments Blood Pressure 88/49 03/14/2020 10:30 AM EDT Pulse 65 03/14/2020 8:25 AM EDT Temperature 36.6 ??C (97.9 ??F) 03/14/2020 8:25 AM ED T Respiratory Rate 18 03/14/2020 10:30 AM EDT Oxygen Saturation 96% 03/14/2020 10:30 AM EDT Inhaled Oxygen Concentration - - [...] Care Everywhere. * EGD (Upper Endoscopy): Post-op (Hong Konger) * Ultrasound: Endoscopic (Oral): Post-op (H[place] Konger) documented in this encounter Medications at Time [...] 1945 Admit date: 03/14/2020 Attending Physician: Festus Carballo MD PROBLEM LIST Patient Active Problem List [...] Take by mouth daily. ??? [DISCONTINUED] Saw [place] 500 mg capsule Take 500 mg by [...] Carballo MD - 03/14/2020 10:[address] [facility] Operative Note Patient Name: Ken Mckeon : [id number] MR#: [id number] Case Date: 03/14/2020 Surgeon: Surgeon(s) and Role: [...] 11:30 AM EDT Office [place] [address] Charline Ziegler MD [facility] [place] [address] documented as of this encounter Procedures Procedure Name Priority Date/Time Associated Diagnosis Comments SURGICAL PATHOLOGY REPORT Routine 03/14/2020 10:01 AM EDT SPECIMEN TO PATHOLOGY Routine 03/14/2020 10:01 AM EDT Upper Gi Endoscopy, Biopsy ([id number]) 03/14/2020 9:29 AM EDT Weight loss upper EUS with anesthesia. INDICATION: weight loss, greasy stools Endoscopic Us Exam, Esoph ([id number]) 03/14/2020 9:29 AM EDT Weight loss upper EUS with anesthesia. INDICATION: weight loss, greasy stools UPPER EUS-ENDOSCOPIC ULTRASOUND Routine 03/14/2020 8:58 AM EDT documented in this encounter Results * Surgical Pathology Report (03/14/2020 10:01 AM EDT) Final Diagnosis [id number] ? Location: 4T; EA; A The signing pathologist has (i) examined the relevant preparation(s) for the specimen(s) and (ii) rendered or confirmed the diagnosis(es). . ?Surgical Pathology DIAGNOSIS Duodenum, ??biopsy: Duodenal mucosa within normal limits, including preserved villous architecture. Electronically signed by: ??Valeri CHAVEZ PhD, Bee Verified: ??03/17/2020 ?Pathologist Performed at: ??-[facility] Dept. of Pathology, [place], [place] SPECIMEN(S) SUBMITTED A - duodenal bx's. r/o celiac, biopsy (Multiple) CLINICAL INFORMATION 74-year-old with weight loss SPECIMEN PROCESSING A - Labeled/Fixativ e: Duodenal biopsies R/O celiac, formalin. Quantity/Size: Three, 0.4-0.5 cm. Tissue Description: Soft, davila-pink tissues. Sections/Proces sing: Submitted en toto ??in 1 cassette labeled A1. ??beckie 03/17/2020 2:[address] [facility] GI Biopsy 03/14/2020 10:0 1 AM EDT 03/14/2020 10:01 AM EDT Festus Carballo MD PATHOLOGY/CYTOLOGY O LA Performing Organization Address [facility] Co de Phone Number [facility] [place] [address] * Specimen to Pathology (03/14/2020 10:01 AM EDT) AP Specimen 03/14/2020 10:0 1 AM EDT 03/14/2020 10:[address] [facility] - 03/14/2020 10:01 AM EDT Specimen requisition ordered. ??Separate Pathology report to follow Festus Carballo MD PATHOLOGY/CYTOLOGY O LA Performing Organization Address [facility] Co de Phone Number [facility] [place] [address] * UPPER EUS-ENDOSCOPIC ULTRASOUND (03/14/2020 8:58 AM EDT) UPPER ENDOSCOPIC ULTRASOUND [facility] Endoscopy Procedure Date: 03/14/2020 8:58 AM ? Patient Name: Ken Mckeon ? Date of : 1945 ? Age: 74 ? Order #: [id number] ? Instrument Name: [id number],[facility] [id number] ? Procedure: ? Upper EUS Indications: ? Weight loss, possible malabsorption Providers: ? Festus Carballo MD, Maria E Castro, ? Seth Ortega, RN, Aleshia Rodriguez. ? Lorenzo, Burlesque Dancer Referring MD: ?Kristofer Ravi, Reji Adams MD [...] (CANCELED) 100 mL/hr, Intravenous, CONTINUOUS, Starting on Fri03/14/20 at 0830, Until Fri03/14/20 at 1040, Endoscopy (Day of Procedure) 0851 (New Bag - Prov ider: Selena Tejeda RN)0904 (New Bag - Provider: Tressa Angulo CRNA)0959 (Anesthesia Volume Adjustment - Provider: Tressa Angulo CRNA) documented in this encounter Care Teams Director Of Channel Marketing Relationship Specialty Start Date End Date Reji Adams MD [facility] [address] [place] [address] PCP - General General Internal Medicine 07/13/15 documented as of this encounter
--- OUTSIDE RECORDS SUMMARY | 2024-07-09 11:11 | XMS_ITS | Encounter Summary ---
Author Organization Pending Sale To [facility] Address [facility] [place] [address] Care Team Providers Care Enterprise Architect Manager Name Role Phone Reji Adams MD Primary Care Provider [phone] Reason for Visit * Reason Comments Establish Care R elbow pain * Consultation (Routine) - Closed Specialty Diagnoses / Procedures Referred By Duglas arizmendi Referred To Contact Orthopaedics Diagnoses right elbow pain / DOI 06/04/2019 re injured Self mail [facility] [address] [place] [address] Referral ID Status Reason Start Date Expiration Date V isits Requested Visits Authorized [id number] Closed Consult, Test & Treat 06/10/2019 07/27/2020 1 1 Encounter Details Date Type Department Care Team (Latest Contact Info) Description 05/26/2020 1:00 PM EDT Office [place] [phone] Roderick Perkins MD [facility] [place] [address] Radiculopathy of cervical region Social History Tobacco Use Types Packs/Day [...] Sign Reading Time Taken Comments Blood Pressure 113/69 05/26/2020 1:00 PM EDT Pulse 70 05/26/2020 1:00 PM EDT Temperature - - Respiratory Rate - - Oxygen Saturation - - Inhaled Oxygen Concentration - - Weight 87.5 kg (193 lb) 05/26/2020 1:00 PM EDT r eported Height 180.3 cm (5' 11) 05/26/2020 1:00 PM EDT reported Body Mass Index 26.92 05/26/2020 1:00 PM EDT documented in this encounter Progress Notes * Alexey King - 05/26/2020 1:00 PM EDT Orthopaedic Surgery Clinic Note PATIENT NAME: Ken Mckeon DATE OF VISIT: 05/26/20 CHIEF COMPLAINT: Chief Complaint Patient presents with ??? Establish Care R elbow pain HPI: Ken Mckeon is a 74 y.o. right hand-dominant male who presents to the orthopaedic clinic for evaluation of right arm pain and numbness in the radial 3 digits. The numbness has been present for up to 6 years. His numbness begins proximal to the elbow and continues into the thumb, index and long finger. 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 He also underwent EMGs which showed evidence of compression of the median nerve distally. He has previously been evaluated by Dr. Lomeli for carpal tunnel syndrome, and it was felt that his symptoms were more consistent with a C6 radiculopathy. He did have a prior corticosteroid injection due to his right elbow for symptoms of pain and stiffness. However today he reports that is a minor complaint compared to the numbness in his radial 3 digits. He did have a prior right elbow MRI which showed some suggestion of ulnar nerve compression, however he has no symptoms in his ulnar 2 digits. Overall, he feels somewhat confused as to whether the nerve compression is originating from his cervical spine, elbow, wrist, or some combination. PAST MEDICAL HISTORY: Past Medical History: Diagnosis Date ??? BPH (benign prostatic hyperplasia) ??? Neck pain 08/24/2012 ??? OA (osteoarthritis) of knee right PAST SURGICAL HISTORY: Past Surgical History: Procedure Laterality Date ??? CREATED BY INTERFACE Past surg hx. Procedure Date: 09/19/2010 ??? PRO COLONOSCOPY, DIAGNOSTIC 09/07/2013 COLONOSCOPY, DIAGNOSTIC performed by Ximena Gu MD at [facility] END[facility]COPY ??? PRO COLONOSCOPY, REMV LESN, SNARE N/A 01/25/2020 COLONOSCOPY, POLYPECTOMY, REMOVAL LESION BY SNARE (WRVU 4.67) performed by Michelle Camarillo MDat [facility] ENDOSCOPY ??? PRO ENDOSCOPIC US EXAM, ESOPH N/A 03/14/2020 UPPER EUS- ENDOSCOPIC ULTRASOUND performed by Festus Carballo MD at [facility] ENDOSCOPY ??? PRO LIGATE/STRIP LONG SAPH VEIN BELW SEP-FEM JUNC 06/02/2012 LIGATION\DIV\STRIP GREATER SAPHENOUS VEIN performed by BEATRICE RODRÍGUEZ at [facility] MA[facility] OR ??? PRO PHLEB VEINS - EXTREM - TO 20 06/02/2012 STAB PHLEBECTOMY KARLI VEINS, EXTREMITY 10-20 INCISIONS-SANTI performed by BEATRICE RODRÍGUEZ at [facility] ??? PRO UPPER GI ENDOSCOPY, BIOPSY N/A 09/02/2017 EGD WITH BIOPSY (WRVU 2.49) performed by Rahul Escobar MD at [facility] ??? PRO UPPER GI ENDOSCOPY, BIOPSY N/A 01/25/2020 EGD WITH BIOPSY (WRVU 2.49) performed by Michelle Camarillo MD at [facility] ??? PRO UPPER GI ENDOSCOPY, BIOPSY N/A 03/14/2020 EGD WITH BIOPSY (WRVU 2.49) performed by Festus Carballo MD at [facility] ??? US GUIDED BIOPSY PROSTATE ([place] ONLY) 02/08/2019 US Guided Transrectal Biopsy 02/08/2019 [facility] RAD ULTRASOUND FAMILY HISTORY: Family History Problem Relation Age of Onset ??? Cancer Mother bone ??? Diabetes Father ??? Cancer Father testicular SOCIAL HISTORY: Social History Socioeconomic History ??? Marital status: Spouse name: Not on file ??? Number of children: 3 ??? Years of education: Not on file ??? Highest education level: Not on file Occupational History ??? Occupation: retired Social Needs ??? Financial resource strain: Not on file ??? Food insecurity Worry: Not on file Inability: Not on file ??? Transportation needs Medical: Not on file Non-medical: Not on file Tobacco Use ??? Smoking status: Never Smoker ??? Smokeless tobacco: Current User Types: Chew ??? Tobacco comment: 3 cans/ week. Substance and Sexual Activity ??? Alcohol use: Yes Alcohol/week: 0.0 - 1.0 standard drinks Frequency: Monthly or less Drinks per session: 1 or 2 Comment: 1 drink per month ??? Drug use: No ??? Sexual activity: Yes Partners: Female Lifestyle ??? Physical activity Days per week: Not on file Minutes per session: Not on file ??? Stress: Not on file Relationships ??? Social connections Talks on phone: Not on file Gets together: Not on file Attends sabianist service: Not on file Active member of club or organization: Not on file Attends meetings of clubs or organizations: Not on file Relationship status: Not on file ??? Intimate partner violence Fear of current or ex partner: Not on file Emotionally abused: Not on file Physically abused: Not on file Forced sexual activity: Not on file Other Topics Concern ??? Do You live alone? Not Asked ??? Tobacco in Home Not Asked Social History Narrative ??? Not on file MEDICATIONS and ALLERGIES: As reviewed in eDH PHYSICAL EXAM: Awake, alert, oriented and in no acute distress RIght elbow exam: Range of motion: extension to 5??, flexion to 130??, supination 80??, pronation 80?? Intact to varus/valgus stress Decreased sensation on the radial forearm and radial 3 digits. . Sensation intact in axillary, radial, , ulnar distributions Motor intact to elbow, wrist, digit flexion and extension 2+ radial pulse, brisk capillary refill distally IMAGING: Radiographs of the right elbow (05/26/20): Demonstrate arthritic changes with significant narrowingof the radiocapitellar joint ASSESSMENT and PLAN: Ken Mckeon is a 74 y.o. male who presents for evaluation of numbness in the right radial 3 digits and mild elbow pain. 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 He is most concerned about the ongoing numbness and its site of origin. We discussed that his symptoms, which include numbness from the mid-arm (proximal to the elbow) continuing into the radial 3 digits is more consistent with a C6 radiculopathy than a peripheral compressive neuropathy. Of note, he does have a history of a C3-C5 ACDF and an MRI from 2019 which demonstrates right greater than left C6 foraminal stenosis. However, we did also discuss it is possible to have a do uble crush phenomenon with a second site of compression at either the elbow or carpal tunnel. He has previously been evaluated by Dr. Bennetthold did not feel that his carpal tunnel was a significant contributor to his symptoms. At this time we recommend he discuss his symptoms and treatment options with his neurosurgeon, Dr. Casanova. If his right elbow arthritis becomes more symptomatic, we advised that he may have another corticosteroid injection. Otherwise he may follow-up in the orthopedic clinic on an as-needed basis. Alexey King MD Orthopaedic Surgery, PGY5 Attending Addendum: The preceding portion of this note was written by Dr. King. I personally saw and evaluated the patient as well and I agree with the assessment and plan documented above. Roderick Perkins M.D., M.S. Senior Abap Developer of Orthopaedic Surgery Shoulder, Elbow, and Sports Medicine Department of [place] [address] documented in this encounter Plan of Treatment Upcoming Encounters Date Type Department Care Team (Late st Contact Info) Description 12/15/2024 11:30 AM EDT Office Visit [place] [address] Charline Ziegler MD [facility] [place] [address] documented as of this encounter Visit Diagnoses Diagnosis Radiculopathy of cervical region Brachial neuritis or radiculitis nos documented in this encounter Care Teams Enterprise Architect Manager Relationship Specialty Start Date End Date Reji Adams MD [facility] [place] [address] PCP - General General Internal Medicine 07/13/15 documented as of this encounter
--- OUTSIDE RECORDS SUMMARY | 2024-07-09 11:11 | XMS_ITS | Encounter Summary ---
Author Organization Formerly [facility] [place] [address] Care Team Providers Care Mining Captain Name Role Phone Reji Adams MD Primary Care Provider [phone] Encounter Details Date Type Department Care Team (Late st Contact Info) Description 04/11/2020 Ancillary Procedure Radiology Library at [facility] [place] [address] Reji Adams MD [facility] [place] [address] Social History Tobacco Use Types Packs/Day Years [...] 11:30 AM EDT Office Visit Gastroenterology at [facility] [place] [id number] Charline Ziegler MD [facility] [address] documented as of this encounter Procedures Procedure Name Priority Date/Time Associated Diagnosis Comments FILM LIBRARY STORAGE ONLY DX HIP Routine 04/11/2020 12:00 AM EDT documented in this encounter Results * Film Library- Storage Only DX Hip (04/11/2020 12:00 AM EDT) Narrative TOMEKA - 06/05/2022 2:11 PM EST This exam is auto-finalizing. It's purpose is for storage only. Reji Adams MD G FILM LIBRARY ORD ERABLES [place], [place] documented in this encounter Visit Diagnoses Not on filedocumented in this encounter Care Teams Mining Captain Relationship Specialty Start Date End Date Reji Adams MD [facility] [place] [address] PCP - General General Internal Medicine 07/13/15 documented as of this encounter
--- OUTSIDE RECORDS SUMMARY | 2024-07-09 11:11 | XMS_ITS | Encounter Summary ---
Author Organization [facility] Address [facility] [place] [address] Care Team Providers Care Transition Mgr Rn Name Role Phone Reji Adams MD Primary Care Provider [phone] Reason for Referral * Diagnostic Test (Routine) - Closed Specialty Diagnoses / Procedures Referred By Contac t Referred To Contact Radiology Diagnoses Dysphagia, unspecified type Constipation, unspecified constipation type Weight loss Procedures CT Enterography Kristofer Ravi MD [facility] [place] [address] [facility] [place] [address] Referral ID Status Reason Start Date Expiration Date V isits Requested Visits Authorized [id number] Closed Specialty Service Requested 01/31/2020 08/02/2021 1 1 * Speech Therapy (Routine) - Closed Specialty Diagnoses / Procedures Referred By Contac t Referred To Contact Speech Pathology / Speech Therapy Diagnoses Dysphagia, unspecified type Constipation, unspecified constipation type Kristofer Ravi MD [facility] [place] [address] [facility] [place] [address] Referral ID Status Reason Start Date Expiration Date V isits Requested Visits Authorized [id number] Closed Evaluate and Treat 01/31/2020 01/30/2021 1 1 Reason for Visit * Consultation (Routine) - Specialty Diagnoses / Procedures Referred By Duglas t Referred To Contact Gastroenterology Diagnoses Constipation, unspecified constipation type Constipation, unspecified constipation type Reji Adams MD [facility] [place] [address] Kristofer Ravi MD [facility] [place] [address] Referral ID Status Reason Start Date Expiration Date Visits Requested Visits Authorized [id number] Specialty Service Requested 01/25/2020 01/24/2021 1 1 Encounter Details Date Type Department Care Team (Latest Contact Info) Description 01/31/2020 3:00 PM EDT TH Visit (TeleHealth) Gastroenterology at [facility] [address] [place] [phone] Kristofer Ravi MD [facility] [place] [address] Dysphagia, unspecified type; Constipation, unspecified constipation type; Weight loss Social History Tobacco Use Types Packs/Day [...] Progress Notes * Kristofer Ravi MD - 01/31/2020 3:00 PM EDT [facility] TELEMEDICINE PROGRAM Chief Complaint: Ken Mckeon is a 74 y.o. patient referred for consultation by Dr. Adams for chronic constipation, last evaluated in 07/29/17. History of Present Illness: 74 y.o. male with history of cervical spine surgery, OA, insomnia, anxiety, peripheral neuropathy, prostate cancer s/p prostatectomy in 2019. and chronic constipation. He complains of several years of up to 5 days without a BM, then numerous soft, small nonbloody BMs(Arley 3-5), with frequent straining with failed attempts at defecation regularly. He denies sensation of incomplete evacuation, prolonged toileting, or digitation. He lost significant weight in the last year but unsure why with relatively normal appetite (42 waist to 38). He endorses intermittent oropharyngeal dysphagia feeling like forgetting how to swallow with spit/saliva, but denies dysphagia to solids or liquids. Denies globus sensation. He endorses infrequent bothersome heartburn, usually when he takes Cialis. Denies fevers, chills, abdominal pain, bloating, nausea, vomiting, odynophagia, regurgitation Current regimen Denies prior bulk forming laxative or soluble fiber use Prior regimen Senna as needed Mag citrate as needed Dulcolax as needed Up to miralax 2 caps twice daily for <1 week (bloating, ineffective) Prior enemas x2 and suppositories Did not try low FODMAP Review of systems: 14-point review of systems [...] tablet by mouth daily. ??? Saw [place] 500 mg capsule Take 500 mg by mouth daily. No facility-administered medications prior to visit. Allergies: is allergic to penicillins; betamethasone; and dexamethasone. Past Medical History: has a past medical history of BPH (benign prostatic hyperplasia), Neck pain (08/24/2012), and OA (osteoarthritis) of knee. Past Surgical History: has a past surgical history that includes created by interface; Ligate/StripLong Saph Vein Belw Sep-Fem Junc (59597) (06/02/2012); Phleb Veins - Extrem - To 20 ([id number]) (06/02/2012); Colonoscopy, Diagnostic (80302) (09/07/2013); Upper Gi Endoscopy, Biopsy (36004) (N/A, 09/02/2017); US Guided Biopsy Prostate (GERBER ONLY) (02/08/2019); Colonoscopy, Lisa Currie, Snare ([id number]) (N/A, 01/25/2020); and Upper Gi Endoscopy, Biopsy ([id number]) (N/A, 01/25/2020). hernia surgery x2 Family History: family history includes Cancer in his father and mother; Diabetes in his father. denies family history of colon cancer, IBD, or celiac disease in mother father or other family members Social History: reports that he has never smoked. His smokeless tobacco use includes chew. He reports current alcohol use. He reports that he does not use drugs. Rare alcohol Physical exam: No Physical Examination performed during this telemedicine visit Laboratory studies, imaging, and procedures (in summary of my review of prior records): Normal labs CMP, CBC, TSH 11/2019 AXR 2017 - moderate fecal load CTAP - normal EGD 01/25/20- normal, gastric biopsies pending Colonoscopy 2013 - normal, +hemorrhoids Colonoscopy 2019 - normal, 2 small polyps (rectal and ascending colon), hemorrhoids Assessment/Plan: Mr. Mckeon is a 74 y.o. patient with # chronic constipation - he has not tried an optimal course of laxatives/fiber. He may have pelvic floor dysfunction, but optimizing laxatives/fiber is the first step. # oropharyngeal dysphagia - suspect difficulty initiating swallow based on history, normal EGD without clear structural abnormalities # weight loss - no diarrhea to correlate with weight loss, and no obstructive symptoms. Can rule out IBD or intraabdominal process with CT. EGD/colon are neg. No hyperthyroid. Defer to PCP for further w/u to consider nutritional issues as this does not appear GI related. He plans on hip surgery next month. We discussed that he should optimize his bowel regimen beforehand and defer more invasive testing until afterward. We discussed that complete symptom relief may [...] as long as tolerated, before changing therapy. Recommendations: Diagnostics - schedule esophageal manometry with 24 hour pH impedance OFF PPI for dysphagia, heartburn to rule out esophageal dysmotility or silent reflux. If evidence of reflux is seen, lifestyle modifications are recommended as is infrequent. - CT enterography - VFSS (modified barium swallow) with speech path consult to evaluate for oropharyngeal transfer issues - patient should speak with PCP about neurocognitive evaluation given bowel issues and oropharyngeal symptoms, copied to this note Therapeutics - start daily miralax as follows (which may not be covered by insurance and can be obtained over the counter; patient should speak with their local managing provider if prescription is needed): 1) Start with 1 capful of miralax at night with a goal of at least 1 bowel movement per day 2) Patient can adjust the dose every 2-3 days as needed, but do not adjust the dosing every day as Miralax needs several days to fully work. The right Miralax dose depends on the patient. Consider several trials of: (1) trying to increase the nighttime dose to two caps, (2) adding a second morning dose, or (3) taking Miralax in the morning (instead of at night). 3) Loose stools and bloating become especially bothersome at doses higher than 2 capfuls twice daily, so higher doses are not recommended beyond 2 caps twice daily. 4) On days with loose stools, consider reducing miralax to 1/2 capful daily, but still take at least some miralax every day. - Rescue regimen if no bowel movement for 3 days despite the bowel regimen above Step 1) use a glycerin suppository at night then try to have a bowel movement in 10-15 minutes Step 2) if glycerin does not work, try a dulcolax suppository 30 minutes later Step 3) If still ineffective, use a warm (not hot) tap water enema If constipation persists for at least two weeks at the target dose, then try four consecutive dietary trials to add to [...] ice cube tray? to use as needed. 4) Drink Smooth Move tea once at night Backup plan - if constipation persists, then we can arrange anorectal manometry at the f/u visit (after hip replacement) and discuss pelvic floor PT. The next visit is also intended to close the loop on above testing and finalize GI recommendations for his local care team. RTC in 4 months with motility STEVIE to further consolidate the GI care plan for the patient's local team. Due to the consultative nature of our practice, the patient should continue to work with his PCP Dr Adams as the primary point of contact for urgent issues, medication refills and adjustments asneeded for continuity of care purposes in between visits to our center based on the recommendationsabove. Per their discretion, it may be beneficial for the patient to establish with a local equipment operating engineer for continuity of care, so that we can co-manage on a consultative basis more effectively. I spent 25 minutes face to face with the patient. 24 minutes were spent on counseling and discussion as of the above during this telemedicine visit. The patient was located in [place] at the time of their visit. Kristofer Ravi MD [facility] [place] [address] documented in this encounter Plan of Treatment Upcoming Encounters Date Type Department Care Team (Late st Contact Info) Description 12/15/2024 11:30 AM EDT Office Visit [place] [address] Charline Ziegler MD [facility] [place] [address] Scheduled Referrals Name Type Priority Associated Diagnoses Orde r Schedule Referral to Speech Therapy Outpatient Referral Routine Dysphagia, unspecified type Constipation, unspecified constipation type Ordered: 01/31/2020 documented as of this encounter Results * CT Enterography (02/04/2020 6:14 PM EDT) Anatomical Region Laterality Modality Chest, Abdomen Computed Tomogra phy Impressions 02/06/2020 5:03 PM EDT Hypodense soft tissue at the ileocecal valve in light of negative colonoscopy on January 25, 2020 may represent inspissated stool. Moderate fecal load. Normal caliber loops of large and small bowel without mural thickening. Narrowed aorto SMA distance in the setting of a normal aorto SMA angle is of unknown clinical relevance. Thank you for letting us participate in the care of this patient. For questions regarding this report, please contact the number below. ? Electronically signed by: Bernie Fernando [facility] ([phone]), at 02/06/2020 5:03 PM Narrative 02/06/2020 5:03 PM EDT EXAMINATION: CT ENTEROGRAPHY CLINICAL HISTORY: weight loss TECHNIQUE: Helical CT Enterography of the abdomen was performed following the intravenous administration of contrast. Administered 98.0 ml of OMNIPAQUE 350.00 mg/ml. Breeza was administered as an oral contrast. COMPARISON: June 18, 2017 FINDINGS: Gastrointestinal tract: 2.8 x 4.8 hypodense soft tissue at the ileocecal valve. No mural thickening. Normal caliber loops of large and small bowel. Moderate fecal load throughout the large bowel. Peritoneum and mesentery: No ascites, free air, or loculated fluid collection. Lower chest: Normal. Liver: Normal size and attenuation without lesions. Bile ducts: Nondilated. Gallbladder: No calcified gallstones. Normal caliber wall. Pancreas: Normal attenuation without ductal dilatation. Spleen: Normal. Adrenals: Normal. Kidneys: Symmetric prompt bilateral nephrograms. Tiny bilateral hypodense renal cortical lesions too small to further characterize the likely cysts. No collecting system dilation. No nephrolithiasis. Urinary Bladder: Normal. Vasculature: Mild atherosclerotic mural calcification about the nonaneurysmal abdominal aorta. Narrowed aorto SMA distance of 4 mm. Normal aorto SMA angle. Variant anatomy where upon the superior mesenteric artery gives rise to the splenic artery. Moderate narrowing at the celiac artery origin which gives rise to the common hepatic and left gastric arteries. Patent inferior mesenteric artery. Lymph Nodes: No enlarged lymph nodes. Abdominal wall: Normal. Prostate gland is either considerably shrunken or has been removed. Osseous structures: No suspicious lesions. Procedure Note Bernie Fernando MD - 02/06/2020 EXAMINATION: CT ENTEROGRAPHY CLINICAL HISTORY: weight loss TECHNIQUE: Helical CT Enterography of the abdomen was performed followingthe intravenous administration of contrast. Administered 98.0 ml of CRAMRWIKI296.00 mg/ml. Breeza was administered as an oral contrast. COMPARISON: June 18, 2017 FINDINGS: Gastrointestinal tract: 2.8 x 4.8 hypodense soft tissue at the ileocecalvalve. No mural thickening. Normal caliber loops of large and small bowel.Moderate fecal load throughout the large bowel. Peritoneum and mesentery: No ascites, free air, or loculated fluidcollection. Lower chest: Normal. Liver: Normal size and attenuation without lesions. Bile ducts: Nondilated. Gallbladder: No calcified gallstones. Normal caliber wall. Pancreas: Normal attenuation without ductal dilatation. Spleen: Normal. Adrenals: Normal. Kidneys: Symmetric prompt bilateral nephrograms. Tiny bilateral hypodenserenal cortical lesions too small to further characterize the likely cysts. No collecting system dilation. No nephrolithiasis. Urinary Bladder: Normal. Vasculature: Mild atherosclerotic mural calcification about thenonaneurysmal abdominal aorta. Narrowed aorto SMA distance of 4 mm. Normal aorto SMAangle. Variant anatomy where upon the superior mesenteric artery gives rise tothe splenic artery. Moderate narrowing at the celiac artery origin which givesrise to the common hepatic and left gastric arteries. Patent inferiormesenteric artery. Lymph Nodes: No enlarged lymph nodes. Abdominal wall: Normal. Prostate gland is either considerably shrunken or has been removed. Osseous structures: No suspicious lesions. IMPRESSION Hypodense soft tissue at the ileocecal valve in light of negativecolonoscopy on January 25, 2020 may represent inspissated stool. Moderate fecal load.Normal caliber loops of large and small bowel without mural thickening. Narrowed aorto SMA distance in the setting of a normal aorto SMA angle isof unknown clinical relevance. Thank you for letting us participate in the care of this patient. Forquestions regarding this report, please contact the number below. Electronically signed by: Bernie Fernando [facility] ([phone]),at 02/06/2020 5:03 PM Kristofer Ravi MD IMG CT ORDERABLES documented in this encounter Visit Diagnoses Diagnosis Dysphagia, unspecified type Constipation, unspecified constipation type Weight loss Loss of weight Dysphagia, unspecified type Constipation, unspecified constipation type Weight loss Loss of weight documented in this encounter Care Teams Transition Mgr Rn Relationship Specialty Start Date End Date Reji Adams MD [facility] [place] [address] PCP - General General Internal Medicine 07/13/15 documented as of this encounter
--- OUTSIDE RECORDS SUMMARY | 2024-07-09 11:11 | XMS_ITS | Encounter Summary ---
Author Organization Formerly [facility] [place] [address] Care Team Providers Care Cardiology Fellow Name Role Phone Reji Adams MD Primary Care Provider [phone] Encounter Details Date Type Department Care Team (Late st Contact Info) Description 05/17/2020 Telephone Internal Medicine at [place] [id number] Dafne Hickey RN Social History Tobacco Use Types Packs/Day [...] Miscellaneous Notes * Telephone Encounter - Dafne iHckey RN - 05/17/2020 10:04 AM EDT Hot :Line Call\ Caller: patient Learning Needs Assessment Reviewed: No Subjective palpitations Objective/Assessment Symptom onset: has been an ongoing issue for years per pt Location: n/a Duration: n/a Characteristics: pt has had issues with palpitations for years feels like there has been an increase in the past 2-3 weeks Denies, chest pain, SOB, changes vision, headache Endorses: dizziness when he bends over and stands up Aggravating factors: change position Relieving factors: none noted Pertinent Past Medical History: Past Medical History: Diagnosis Date ??? BPH (benign prostatic hyperplasia) ??? Neck pain 08/24/2012 ??? OA (osteoarthritis) of knee right Plan Intervention/Plan/ Follow Up: 3:[address] Asher documented in this encounter Plan of Treatment Upcoming Encounters Date Type Department Care Team (Late st Contact Info) Description 12/15/2024 11:30 AM EDT Office [place] [address] Charline Ziegler MD [facility] [place] [address] documented as of this encounter Visit Diagnoses Not on filedocumented in this encounter Care Teams Cardiology Fellow Relationship Specialty Start Date End Date Reji Adams MD [facility] GENERAL [place] [address] PCP - General General Internal Medicine 07/13/15 documented as of this encounter
--- OUTSIDE RECORDS SUMMARY | 2024-07-09 11:11 | XMS_ITS | Encounter Summary ---
Author Organization [facility] [place] [address] Care Team Providers Care Can Slider Name Role Phone Reji Adams MD Primary Care Provider Encounter Details Date Type Department Care Team (Late st Contact Info) Description 03/13/2020 Telephone [place] [address] Leslie Harris Social History Tobacco Use Types Packs/Day Years [...] encounter Miscellaneous Notes * Telephone Encounter - Leslie Harris - 03/13/2020 12:52 PM EDT Ken Mckeon [id number] Diagnosis/Indication: EUS 1. Have you ever had a/an Upper EUS before? No If yes, did you have any problems with the procedure? No What type of sedation was used: None 2. Do you take any Blood Thinners? No 3. Do you have a Pacemaker or Defibrillator device? No 4. Are you a diabetic? No 5. Do you have any Allergies to Eggs, Latex or Medications? Yes: SEE EDH 6. Do you take any Oral Iron Supplements (Including multi-vitamins)? No 7. Do you have a history of three or more abdominal surgeries? Yes 8. Have you had a problem with [...] to patient: You must have a responsible green party who will drive you to your procedure, stay [place] for the entire duration of your procedure, and drive you home from your procedure? *Please Verify the height and weight, and adjust if height and/or weight have changed* Estimated body mass index is 26.38 kg/m?? as calculated from the following: Height as of 03/07/20: 181.6 cm (5' 11.5). Weight as of 03/07/20: 87 kg (191 lb 12.8 oz). Age:74 y.o. documented in this encounter Plan of Treatment Upcoming Encounters Date Type Department Care Team (Late st Contact Info) Description 12/15/2024 11:30 AM EDT Office [place] [address] Charline Ziegler MD [facility] [place] [address] documented as of this encounter Visit Diagnoses Not on filedocumented in this encounter Care Teams Can Slider Relationship Specialty Start Date End Date Reji Adams MD [facility] GENERAL [place] [address] PCP - General General Internal Medicine 07/13/15 documented as of this encounter
--- OUTSIDE RECORDS SUMMARY | 2024-07-09 11:11 | XMS_ITS | Encounter Summary ---
Author Organization [facility] [place] [address] Care Team Providers Care A R Specialist Name Role Phone Reji Aadms MD Primary Care Provider [phone] Encounter Details Date Type Department Care Team (Latest Contact Info) Description 04/20/2020 10:55 AM EDT Laboratory Appointment Lab at [address] [address] Erectile dysfunction of organic origin; Spermatocele of epididymis; Malignant neoplasm of prostate; Acquired absence of organ, genital organs Social History Tobacco Use Types Packs/Day Years [...] 11:30 AM EDT Office [place] [address] Charline Ziegler MD [facility] [place] [address] documented as of this encounter Procedures Procedure Name Priority Date/Time Associated Diagnosis Comments HC VENIPUNCTURE Routine 04/20/2020 11:15 AM EDT 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 Values within this reference interval may indicate recurrence in men who have undergone radical prostatectomy. Blood specimen (specimen) 04/20/2020 11:15 AM EDT 04/20/2020 1:11 PM EDT Narrative Resulting Agency Comment Spec In Lab Rigo Rocha MD CHEMISTRY ORDERABLES [facility] [place] [address] documented in this encounter Visit Diagnoses Diagnosis Erectile dysfunction of organic origin Impotence of organic origin Spermatocele of epididymis Spermatocele Malignant neoplasm of prostate Acquired absence of organ, genital organs documented in this encounter Care Teams A R Specialist Relationship Specialty Start Date End Date Reji Adams MD [facility] [place] [address] PCP - General General Internal Medicine 07/13/15 documented as of this encounter
--- OUTSIDE RECORDS SUMMARY | 2024-07-09 11:11 | XMS_ITS | Encounter Summary ---
Author Organization [facility] Address [facility] [place] [address] Care Team Providers Care Numerical Control Tool Programmer Name Role Phone Reji Adams MD Primary Care Provider [phone] Reason for Referral * Diagnostic Test (Routine) - Closed Specialty Diagnoses / Procedures Referred By Contac t Referred To Contact Radiology Diagnoses Dysphagia, unspecified type Constipation, unspecified constipation type Weight loss Procedures CT Enterography Kristofer Ravi MD [facility] [place] [address] [facility] [place] [address] Referral ID Status Reason Start Date Expiration Date V isits Requested Visits Authorized [id number] Closed Specialty Service Requested 01/31/2020 08/02/2021 1 1 Reason for Visit * Diagnostic Test (Routine) - Closed Specialty Diagnoses / Procedures Referred By Contac t Referred To Contact Radiology Diagnoses Dysphagia, unspecified type Constipation, unspecified constipation type Weight loss Procedures CT Enterography Kristofer Ravi MD [facility] [place] [address] [facility] [place] [address] Referral ID Status Reason Start Date Expiration Date V isits Requested Visits Authorized [id number] Closed Specialty Service Requested 01/31/2020 08/02/2021 1 1 Encounter Details Date Type Department Care Team (Latest Contact Info) Description 02/04/2020 4:34 PM EDT - 02/04/2020 11:59 PM EDT Hospital Encounter CT Scan at [facility] [place] [address] Kristofer Ravi MD [facility] [place] [address] Dysphagia, unspecified type; Constipation, unspecified constipation type; Weight loss Discharge Disposition: Home Social History Tobacco Use [...] 81 mg by mouth daily. 03/17/2023 Saw [place] 500 mg capsule Take 500 mg by mouth daily. 03/14/2020 documented as of this encounter Plan of Treatment Upcoming Encounters Date Type Department Care Team (Late st Contact Info) Description 12/15/2024 11:30 AM EDT Office Visit Gastroenterology at [facility] [place] [address] Charline Ziegler MD [facility] [place] [address] documented as of this encounter Procedures Procedure Name Priority Date/Time Associated Diagnosis Comments CT ENTEROGRAPHY Routine 02/04/2020 6:14 PM EDT Dysphagia, unspecified type Constipation, unspecified constipation type Weight loss documented in this encounter Results * CT Enterography (02/04/2020 [...] below. ? Electronically signed by: Bernie Fernando [facility] ([phone]), at 02/06/2020 5:03 PM Narrative 02/06/2020 5:03 [...] administration of contrast. Administered 98.0 ml of [id number] mg/ml. Breeza was administered as an oral [...] number below. Electronically signed by: Bernie Fernando [facility] ([phone]),at 02/06/2020 5:03 PM Kristofer Ravi MD IMG CT ORDERABLES documented in this encounter Visit Diagnoses Diagnosis Dysphagia, unspecified type Constipation, unspecified constipation type Weight loss Loss of weight documented in this encounter Administered Medications Inactive Administered Medications - up to 3 most recent administrations Medication Order MAR Action Action Date Dose Rate Site iohexoL (OMNIPAQUE) 350 mg/mL solution 0-200 mL 0-200 mL, Intravenous, ONCE PRN, 1 dose, Starting on Fri02/04/20 at 1812, Until Fri02/04/20 at 1813, Per Protocol, Warning Vesicant/Irritant Medication , Radiology Contrast, Routine Given 02/04/2020 6:13 PM EDT 98 mLs documented in this encounter Care Teams Numerical Control Tool Programmer Relationship Specialty Start Date End Date Reji Adams MD [facility] [place] [address] PCP - General General Internal Medicine 07/13/15 documented as of this encounter
--- OUTSIDE RECORDS SUMMARY | 2024-07-09 11:11 | XMS_ITS | Encounter Summary ---
Author Organization [facility] [place] [address] Care Team Providers Care Powerhouse Mechanic Helper Name Role Phone Reji Adams MD Primary Care Provider [phone] Reason for Visit * Reason Comments Urinary Retention Ongoing since surger y last week - Nightime frequency with greater output/urology would like him to have a bladder scan Encounter Details Date Type Department Care Team (Late st Contact Info) Description 04/21/2020 3:00 PM EDT Office Visit Internal Medicine at [address] [address] Qian Power, MARYBEL [facility] GENER[place] [address] Nocturia Social History Tobacco Use Types Packs/Day Years [...] Sign Reading Time Taken Comments Blood Pressure 86/52 04/21/2020 3:10 PM EDT Pulse 77 04/21/2020 3:10 PM EDT Temperature 37 ??C (98.6 ??F) 04/21/2020 3:1 0 PM EDT Respiratory Rate - - Oxygen Saturation 99% 04/21/2020 3:1 0 PM EDT Inhaled Oxygen Concentration - - Weight 89 kg (196 lb 3.2 oz) 04/21/2020 3:10 PM EDT with shoes on Height 180.3 cm (5' 11) 04/21/2020 3:1 0 PM EDT approx - patient reported Body Mass Index 27.36 04/21/2020 3:10 PM EDT documented in this encounter Progress Notes * Qian Power, [facility] [place] - 04/21/2020 3:00 PM EDT PCP: Reji Adams MD Chief Complaint Patient presents with ??? Urinary Retention Ongoing since surgery last week - Nightime frequency with greater output/urology would like him to have a bladder scan SUBJECTIVE: Ken Mckeon is a 74 y.o. male who presents for concern for urinary retention. He reports that hehas been ok except for problems with urination. He reports that he had surgery last week, and sincethen he has been urinating minimally during the day, but has been urinating a lot at night. He is not voiding until he lays down at night. 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 He did have acatheter placed when he was in the hospital. He reports that he did have a lot of burning with urination after the catheter was removed, but none since. He reports that he is unsure if he can go during the day. He reports that at night he has an urgency to get to the bathroom. He has not been drinking as much because he is worried that he will be up a lot at night. Review of Systems Constitutional: Negative for chills and fever. Respiratory: Negative for cough and shortness of breath. Cardiovascular: Negative for chest pain and palpitations. Genitourinary: Positive for difficulty urinating and frequency (nocturia). Negative for dysuria, flank pain and penile pain. Musculoskeletal: Positive for arthralgias and gait problem. Allergies Allergen Reactions ??? Penicillins Anaphylaxis Tongue swelling ??? Betamethasone hiccups after injection ??? Dexamethasone Hiccups after injection Current Outpatient Medications Medication Sig Dispense Refill ??? celecoxib (CeleBREX) 200 mg Capsule Take 400 mg by mouth 2 times daily. ??? ALPRAZolam (Xanax) 0.25 mg Tablet Take [...] exceed 6 tabs in 24 hours ??? multivitamin (THERAGRAN) tablet Take 1 tablet by mouth daily. ??? aspirin 81 mg Tablet, Delayed Release (E.C.) Take 81 mg by mouth daily. No current facility-administered [...] ??? Malignant neoplasm of prostate C61 OBJECTIVE: Vitals: 04/21/20 1510 BP: (!) 86/52 BP Location (NBP): Left arm Patient Position: Sitting BP Cuff Sizes: Adult (25-34 cm) Pulse: 77 Temp: 37 ??C (98.6 ??F) TempSrc: Temporal SpO2: 99% Weight: 89 kg (196 lb 3.2 oz) Height: 180.3 cm (5' 11) PHYSICAL EXAM: Physical Exam Vitals signs reviewed. Constitutional: General: He is not in acute distress. Appearance: He is well-developed. HENT: Head: Normocephalic and atraumatic. Eyes: Conjunctiva/sclera: Conjunctivae normal. Cardiovascular: Rate and Rhythm: Normal rate and regular rhythm. Heart sounds: Normal heart sounds. No murmur. Pulmonary: Effort: Pulmonary effort is normal. Breath sounds: Normal breath sounds. No wheezing or rales. Chest: Chest wall: No tenderness. Abdominal: General: Abdomen is flat. There is no distension. Tenderness: There is no right CVA tenderness or left CVA tenderness. Skin: General: Skin is warm and dry. Neurological: Mental Status: He is alert and oriented to person, place, and time. Psychiatric: Behavior: Behavior normal. Thought Content: Thought content normal. Judgment: Judgment normal. ASSESSMENT & PLAN: Ken was seen today for urinary retention. Diagnoses and all orders for this visit: Nocturia - POCT urine dipstick - Bladder scan - CBC (with Diff); Future - Basic Metabolic Panel (non-fasting); Future - Basic Metabolic Panel (non-fasting) - CBC (with Diff) - Hemogram - Differential, Automated - bladder scan showed essential 0 in bladder after voiding. He has urination, but just at night. His legs show mild swelling today. I discussed with him that I think that the nocturia is related to his leg being elevated at night. I reassured him that I did not think he had uti. I recommended that he elevate his legs intermittently throughout the day and avoid sitting with his legs dependant. He will start to wear compression stockings as well. documented in this encounter Plan of Treatment Upcoming Encounters Date Type Department Care Team (Late st Contact Info) Description 12/15/2024 11:30 AM EDT Office [place] [address] Charline Ziegler MD [facility] [address] documented as of this encounter Procedures Procedure Name Priority Date/Time Associated Diagnosis Comments HEMOGRAM Routine 04/21/2020 3:47 PM EDT Nocturia DIFFERENTIAL, AUTOMATED Routine 04/21/2020 3:47 PM EDT Nocturia HC CBC,PLT & AUTO DIFF Routine 04/21/2020 3:47 PM EDT Nocturia HC VENIPUNCTURE Routine 04/21/2020 3:47 PM EDT Nocturia POCT URINE DIPSTICK Routine 04/21/2020 Nocturia documented in this encounter Results * Differential, Automated (04/21/2020 3:47 PM EDT) Neutrophil % 58.0 % [facility] Neutrophil Absolute 4.73 1.70 - 6.10 x10(3)/[facility] Lymph % 32.0 % [facility] Lymphocytes Abs 2.6 0.9 - 3.2 x10(3)/[facility] Monocyte % 6.7 % [facility] Monocyte Abs 0.6 0.3 - 0.9 x10(3)/[facility] Eos % 2.2 % [facility] Eosinophils Abs 0.2 0.0 - 0.4 x10(3)/[facility] Basophil % 0.6 % [facility] Baso Absolute 0.0 0.0 - 0.1 x10(3)/[facility] Immature Gran % 0.50 % [facility] Comment: Immature granulocytes(IG's)percentage and absolute count will include metamyelocytes, myelocytes, and promyelocytes. Blood smears from CBCs yielding IG's will be scanned manually for concordance. If this scan disagrees with the automated IG or if promyelocytes are noted, a manual differential will be performed. Immature Gran Absolute 0.04 0.00 - 0.04 x10(3)/[facility] Blood specimen (specimen) 04/21/2020 3:47 PM EDT 04/21/2020 6:51 PM EDT Narrative Resulting Agency Comment Spec In Lab Qian Khang Jannet NO HEMATOLOGY ORDER DALILA [facility] [place] [address] * (ABNORMAL) Hemogram (04/21/2020 3:47 PM EDT) White Blood Cell 8.2 4.0 - 9.5 x10(3)/[facility] Red Blood Cell 3.47(L) 4.58 - 5.54 x10(6)/[facility] Hemoglobin 10.7(L) 13.7 - 16.5 gm/dL [facility] Hematocrit 32.8(L) 40.5 - 48.5 % [facility] Mean Cell Volume 94.5(H) 82.9 - 93.1 fL [facility] Mean Cell Hemoglobin 30.8 27.5 - 32.1 pg [facility] Mean Cell Hemoglobin Concentration 32.6 32.0 - 35.7 gm/dL [facility] Platelet 354 145 - 357 x10(3)/[facility] RDW Standard Deviation 50.7(H) 36.0 - 45.0 [facility] RDW coefficient of variation 14.7(H) 11.4 - 13.8 % [facility] Mean Platelet Volume 8.6 7.6 - 12.9 fL [facility] NRBC% auto 0.0 % [facility] NRBC Absolute 0.000 0.000 - 0.000 x10(3)/[facility] Blood specimen (specimen) 04/21/2020 3:47 PM EDT 04/21/2020 6:51 PM EDT Narrative Resulting Agency Comment Spec In Lab Qian Power MARY[facility]EL HEMATOLOGY ORDER DALILA [facility] [place] [address] * (ABNORMAL) Basic Metabolic Panel (non-fasting) (04/21/2020 3:47 PM EDT) Glucose 100 65 - 199 mg/dL [facility] Comment:Diabetes: >=200 mg/d L plus symptoms Blood Urea Nitrogen 21(H) 10 - 20 mg/dL [facility] Creatinine 0.97 0.80 - 1.50 mg/dL [facility] Sodium 138 135 - 145 mmol/L [facility] Potassium 4.3 3.5 - 5.0 mmol/L [facility] Comment: Please note: ??Patients with WBC >100,000 may have falsely elevated Potassium levels. ??For accurate Potassium quantification in these patients send serum separator tube (gold top) for subsequent determinations. ??Contact the Clinical Chemistry Laboratory if there are any questions. Chloride 104 98 - 107 mmol/L [facility] Carbon Dioxide 26 22 - 31 mmol/L [facility] Anion Gap 8 5 - 15 mmol/L [facility] Calcium 9.0 8.5 - 10.5 mg/dL [facility] Est Glomerular Filtration Rate 77 >=60 mL/min/1. 73 m?? [facility] Comment: The eGFR was calculated using the CKD-EPI equation. As with all creatinine based estimates of kidney function, eGFR values calculated with the CKD-EPI equation are not accurate in patients with acute kidney failure, extremes of body mass or the acutely ill. http://[facility]/DHMCnkf eGFR 89 >=60 mL/min/1. 73 m?? [facility] Comment: The eGFR was calculated using the CKD-EPI equation. As with all creatinine based estimates of kidney function, eGFR values calculated with the CKD-EPI equation are not accurate in patients with acute kidney failure, extremes of body mass or the acutely ill. http://[employer]/DHMCnkf Blood specimen (specimen) 04/21/2020 3:47 PM EDT 04/21/2020 6:36 PM EDT Narrative Resulting Agency Comment Spec In Lab Qian Quiñonez Jannet NO CHEMISTRY ORDERA BLES [facility] [place] [address] * POCT urine dipstick (04/21/2020) POC Sp [place] 1.025 1.002 - 1.030 POC pH, UA 5 5.0 - 8.5 POC Leuk, UA Negative Negative - Negative POC Nitrite, UA Negative Negative - Negative POC Protein, UA Trace Negative - Negative mg/dL POC Glucose, UA Normal Normal - Normal mg/dL POC Ketone, UA Negative Negative - Negative POC Urobil, UA Normal 0.2 - 1.0 mg/dL POC Bili, UA Negative Negative - Negative POC Blood, UA Negative Negative - Negative denise/uL Urine specimen (specimen) 04/21/2020 Qian Quiñonez Jannet [facility] POINT OF CARE TE ST ORDERABLES documented in this encounter Visit Diagnoses Diagnosis Nocturia documented in this encounter Care Teams Powerhouse Mechanic Helper Relationship Specialty Start Date End Date Reji Adams MD [facility] [place] [address] PCP - General General Internal Medicine 07/13/15 documented as of this encounter
--- OUTSIDE RECORDS SUMMARY | 2024-07-09 11:11 | XMS_ITS | Encounter Summary ---
Author Organization [facility] Address [facility] [place] [address] Care Team Providers Care Artificial Plastic Eye Maker Name Role Phone Reji Adams MD Primary Care Provider [phone] Encounter Details Date Type Department Care Team (Latest Contact Info) Description 05/26/2020 11:53 AM EDT - 05/26/2020 11:59 PM EDT Hospital Encounter XRay at [address] [place] [address] Roderick Perkins MD [facility] [place] [address] Right elbow pain Discharge Disposition: Home Social History Tobacco [...] daily as needed for Anxiety. 90 tablet 04/25/2020 06/04/2020 tadalafiL (CIALIS) 5 mg Tablet Take 5 mg by mouth as needed for Erectile Dysfunction. 03/17/2023 sildenafiL (VIAGRA) 100 mg Tablet Take 100 mg by mouth as needed for Erectile Dysfunction. 08/03/2020 pravastatin (Pravachol) 20 mg Tablet Take 1 [...] AM EDT Office [place] [address] Charline Ziegler MD [facility] [place] [address] documented as of this encounter Procedures Procedure Name Priority Date/Time Associated Diagnosis Comments XR ELBOW 3 VIEWS RIGHT (GENERIC) Routine 05/26/2020 12:03 PM EDT Right elbow pain documented in this encounter Results * XR Elbow 3 Views Right (GENERIC) (05/26/2020 12:03 PM EDT) Anatomical Region Laterality Modality Elbow Right Digital Radiogra phy Impressions 05/26/2020 1:04 PM EDT Osteoarthropathy of the elbow, 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 Thank you for letting us participate in the care of this patient. For questions regarding this report, please contact the number below. ? Electronically signed by: Aldair Fuller MD, [facility] ([phone]), at 05/26/2020 1:04 PM Narrative 05/26/2020 1:04 PM EDT EXAMINATION: XR ELBOW 3 VIEWS RIGHT (GENERIC) CLINICAL HISTORY: Right elbow pain TECHNIQUE: 3 views RIGHT elbow COMPARISON: Right elbow MRI 09/25/2016 FINDINGS: No fracture or dislocation. There is a joint effusion. Alignment is intact. There is osteophytes at the radiocapitellar and ulnohumeral articulation. There is severe radial capitellar joint space narrowing. There is mineralization of the radial collateral ligament. Procedure Note Aldair Fuller MD - 05/26/2020 EXAMINATION: XR ELBOW 3 VIEWS RIGHT (GENERIC) CLINICAL HISTORY: Right elbow pain TECHNIQUE: 3 views RIGHT elbow COMPARISON: Right elbow MRI 09/25/2016 FINDINGS: No fracture or dislocation. There is a joint effusion. Alignment isintact. There is osteophytes at the radiocapitellar and ulnohumeral articulation.There is severe radial capitellar joint space narrowing. There is mineralizationof the radial collateral ligament. 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 Thank you for letting us participate in the care of this patient. Forquestions regarding this report, please contact the number below. Electronically signed by: Aldair Fuller MD, [facility]([phone]), at 05/26/2020 1:04 PM Roderick Perkins MD IMG DX ORDERABLES documented in this encounter Visit Diagnoses Diagnosis Right elbow pain Pain in joint, upper arm documented in this encounter Care Teams Artificial Plastic Eye Maker Relationship Specialty Start Date End Date Reji Adams MD [facility] GENER[facility] [place] [address] PCP - General General Internal Medicine 07/13/15 documented as of this encounter
--- OUTSIDE RECORDS SUMMARY | 2024-07-09 11:11 | XMS_ITS | Encounter Summary ---
Author Organization [facility] Address [facility] [place] [address] Care Team Providers Care Nurse Liaison Name Role Phone Reji Adams MD Primary Care Provider [phone] Reason for Visit * Reason Comments Medication Refill Encounter Details Date Type Department Care Team (Late st Contact Info) Description 01/31/2020 Refill Internal Medicine at [address] [address] Reji Adams MD [facility] GENERAL [place] [address] Anxiety Social History Tobacco Use Types Packs/Day [...] AM EDT Office Visit [place] [address] Charline Ziegler MD [facility] [place] [address] documented as of this encounter Visit Diagnoses Diagnosis Anxiety Anxiety state, unspecified documented in this encounter Additional Health Concerns Infection Onset Date Last Indicated Resolved Time Rule Out C. difficile 03/08/2020 03/08/20202019 11:23 AM EDT documented as of this encounter Care Teams Nurse Liaison Relationship Specialty Start Date End Date Reji Adams MD [facility] GENER[facility] [place] [address] PCP - General General Internal Medicine 07/13/15 documented as of this encounter
--- OUTSIDE RECORDS SUMMARY | 2024-07-09 11:11 | XMS_ITS | Encounter Summary ---
Author Organization [facility] [place] [address] Care Team Providers Care Diamond Blender Name Role Phone Reji Adams MD Primary Care Provider [phone] Reason for Visit * Reason Onset Date Comments Medication Refill 06/04/2020 Encounter Details Date Type Department Care Team (Late st Contact Info) Description 06/04/2020 Refill Internal Medicine at [address] [address] Reji Adams MD [facility] [place] [address] Anxiety Social History Tobacco Use Types Packs/Day [...] 11:30 AM EDT Office Visit [place] [address] Charline Ziegler MD [facility] [address] documented as of this encounter Visit Diagnoses Diagnosis Anxiety Anxiety state, unspecified documented in this encounter Care Teams Diamond Blender Relationship Specialty Start Date End Date Reji Adams MD [facility] [place] [address] PCP - General General Internal Medicine 07/13/15 documented as of this encounter
--- OUTSIDE RECORDS SUMMARY | 2024-07-09 11:11 | XMS_ITS | Encounter Summary ---
Author Organization [facility] [place] [address] Care Team Providers Care Ged Instructor Name Role Phone Reji Adams MD Primary Care Provider [phone] Encounter Details Date Type Department Care Team (Late st Contact Info) Description 03/14/2020 Telephone [place] [address] Sagrario Bravo RN Social History Tobacco Use Types Packs/Day [...] encounter Miscellaneous Notes * Telephone Encounter - Sagrario Bravo RN - 03/14/2020 2:10 PM EDT Follow-up call placed to patient. Fecal fat was not collected over 72 hours as he only received onepink/dugan vial/collected only x 1 day. Returned call to lab to advise. They will change order to represent random fecal fat. * Telephone Encounter - Sagrario Bravo RN - 03/14/2020 8:53 AM EDT Received call from Lab asking to clarifying if fecal fat 72 hour sample represented a true 72 hour collection. Call placed to patient to verify specimen collection time frame. [facility] requesting call back. documented in this encounter Plan of Treatment Upcoming Encounters Date Type Department Care Team (Late st Contact Info) Description 12/15/2024 11:30 AM EDT Office [place] [address] Charline Ziegler MD [facility] [place] [place] [address] documented as of this encounter Visit Diagnoses Not on filedocumented in this encounter Care Teams Ged Instructor Relationship Specialty Start Date End Date Reji Adams MD [facility] [place] [address] PCP - General General Internal Medicine 07/13/15 documented as of this encounter
--- OUTSIDE RECORDS SUMMARY | 2024-07-09 11:11 | XMS_ITS | Encounter Summary ---
Author Organization Formerly [facility] [place] [address] Care Team Providers Care Tactical Debriefer Name Role Phone Reji Adams MD Primary Care Provider [phone] Reason for Visit * Reason Onset Date Comments Medication Refill 07/12/2020 Encounter Details Date Type Department Care Team (Late st Contact Info) Description 07/12/2020 Refill Internal Medicine at [address] [address] Reji Adams MD [facility] [place] [address] Anxiety Social History Tobacco Use Types Packs/Day [...] 11:30 AM EDT Office [place] [address] Charline Ziegler MD [facility] GASTROENTEROLOGY [place], [place] [id number] documented as of this encounter Visit Diagnoses Diagnosis Anxiety Anxiety state, unspecified documented in this encounter Care Teams Tactical Debriefer Relationship Specialty Start Date End Date Reji Adams MD [facility] [place] [address] PCP - General General Internal Medicine 07/13/15 documented as of this encounter
--- OUTSIDE RECORDS SUMMARY | 2024-07-09 11:11 | XMS_ITS | Encounter Summary ---
Author Organization [facility] [place] [address] Care Team Providers Care Production Graphic Designer Name Role Phone Reji Adams MD Primary Care Provider [phone] Reason for Visit * Reason Onset Date Comments Medication Refill 01/31/2020 Encounter Details Date Type Department Care Team (Late st Contact Info) Description 01/31/2020 Refill Internal Medicine at [address] [address] Reji Adams MD [facility] [place] [address] Anxiety Social History Tobacco Use Types Packs/Day [...] 11:30 AM EDT Office [place] [address] Charline Ziegler MD [facility] [place] [address] documented as of this encounter Visit Diagnoses Diagnosis Anxiety Anxiety state, unspecified documented in this encounter Care Teams Production Graphic Designer Relationship Specialty Start Date End Date Reji Adams MD [facility] [place] [address] PCP - General General Internal Medicine 07/13/15 documented as of this encounter
--- OUTSIDE RECORDS SUMMARY | 2024-07-09 11:12 | XMS_ITS | Encounter Summary ---
Author Organization [facility] Address [facility] [place] [address] Care Team Providers Care Christmas Tree Contractor Name Role Phone Reji Adams MD Primary Care Provider [phone] Reason for Referral * Diagnostic Test (Routine) - Closed Specialty Diagnoses / Procedures Referred By Contac t Referred To Contact Radiology Diagnoses Malignant neoplasm of prostate Procedures NM Whole Body Bone Scan Tobias Mcginnis MD [facility] [place] [address] [place] [address] Referral ID Status Reason Start Date Expiration Date V isits Requested Visits Authorized [id number] Closed Specialty Service Requested 02/11/2019 02/11/2020 1 1 Reason for Visit * Diagnostic Test (Routine) - Closed Specialty Diagnoses / Procedures Referred By Contac t Referred To Contact Radiology Diagnoses Malignant neoplasm of prostate Procedures NM Whole Body Bone Scan Tobias Mcginnis MD [facility] [place] [address] [place] [address] Referral ID Status Reason Start Date Expiration Date V isits Requested Visits Authorized [id number] Closed Specialty Service Requested 02/11/2019 02/11/2020 1 1 Encounter Details Date Type Department Care Team (Latest Contact Info) Description 02/22/2019 11:47 AM EDT - 02/22/2019 2:23 PM EDT Hospital Encounter [place] [phone] Tobias Mcginnis MD [facility] [place] [address] Malignant neoplasm of prostate Discharge Disposition: Home [...] Take 1 tablet by mouth daily. ALPRAZolam (XANAX) 0.25 mg Tablet Take 1 tablet by mouth 3 times daily as needed for Anxiety. 90 tablet 02/04/2019 03/09/2019 BORON ORAL Take by mouth daily. 03/14/2020 pravastatin (PRAVACHOL) 20 mg Tablet Take 1 tablet by mouth daily. 90 tablet 3 11/26/2018 08/26/2019 MALCOLM EXTRACT ORAL Take by mouth. 11/09/19 aspirin 81 mg Tablet, Delayed Release (E.C.) Take 81 mg by mouth daily. 03/17/2023 Saw Hawthorne 500 mg capsule Take 500 mg by mouth daily. 03/14/2020 documented as of this encounter Plan of Treatment Upcoming Encounters Date Type Department Care Team (Late st Contact Info) Description 12/15/2024 11:30 AM EDT Office [place] [phone] Charline Ziegler MD [facility] [place] [address] documented as of this encounter Procedures Procedure Name Priority Date/Time Associated Diagnosis Comments NM BONE SCAN WHOLE BODY Routine 02/22/2019 3:22 PM EDT Malignant neoplasm of prostate documented in this encounter Results * NM Whole Body Bone Scan (02/22/2019 3:22 PM EDT) Anatomical Region Laterality Modality Nuclear Medicine Impressions 02/22/2019 3:31 PM EDT No evidence for osseous metastasis. Thank you for letting us participate in the care of this patient. For questions regarding this report, please contact the number below. ? Narrative 02/22/2019 3:31 PM EDT EXAMINATION: NM WHOLE BODY BONE SCAN CLINICAL HISTORY: Prostate cancer staging TECHNIQUE: Three hours following the intravenous administration of 24.5 mCi of technetium-99m MDP, planar images of the skeleton in anterior and posterior projection were obtained COMPARISON: None FINDINGS: Mild diffusely increased tracer activity at multiple levels of the cervical, thoracic, lumbar spine, consistent with diffuse degenerative changes. A moderate degree of arthritic reaction in the major joints of the upper and lower extremities. Right knee prosthesis with no significant periprosthetic activity. No other significant osseous abnormalities. Normal renally excreted activity in the kidneys and in the urinary bladder. Procedure Note Marcelo Treadwell MD - 02/22/2019 EXAMINATION: NM WHOLE BODY BONE SCAN CLINICAL HISTORY: Prostate cancer staging TECHNIQUE: Three hours following the intravenous administration of 24.5mCi of technetium-99m MDP, planar images of the skeleton in anterior andposterior projection were obtained COMPARISON: None FINDINGS: Mild diffusely increased tracer activity at multiple levels of thecervical, thoracic, lumbar spine, consistent with diffuse degenerative changes. Amoderate degree of arthritic reaction in the major joints of the upper and lower extremities. Right knee prosthesis with no significant periprostheticactivity. No other significant osseous abnormalities. Normal renally excretedactivity in the kidneys and in the urinary bladder. IMPRESSION No evidence for osseous metastasis. Thank you for letting us participate in the care of this patient. Forquestions regarding this report, please contact the number below. Tobias Mcginnis MD IMG NM ORDERABLES documented in this encounter Visit Diagnoses Diagnosis Malignant neoplasm of prostate documented in this encounter Administered Medications Inactive Administered Medications - up to 3 most recent administrations Medication Order MAR Action Action Date Dose Rate Site technetium (Tc-99m) methylene diphosphonate (MDP) injection 24.5 mCi 24.5 mCi, Intravenous, ONCE PRN, 1 dose, Starting on Fri02/22/19 at 1200, Until Fri02/22/19 at 1200, Per Protocol, Routine Given 02/22/2019 12:00 PM EDT 24.5 mCi Right Arm documented in this encounter Care Teams Christmas Tree Contractor Relationship Specialty Start Date End Date Reji Adams MD [facility] [place] [address] PCP - General General Internal Medicine 07/13/15 documented as of this encounter
--- OUTSIDE RECORDS SUMMARY | 2024-07-09 11:12 | XMS_ITS | Encounter Summary ---
Author Organization [facility] [place] [address] Care Team Providers Care Histology Supervisor Name Role Phone Reji Adams MD Primary Care Provider [phone] Reason for Visit * Reason Onset Date Comments Appointment 12/03/2019 Encounter Details Date Type Department Care Team (Late st Contact Info) Description 12/03/2019 Telephone Internal Medicine at [place] [phone] Jemma Santos Appointment Social History Tobacco Use Types Packs/Day [...] encounter Miscellaneous Notes * Telephone Encounter - Jemma Santos - 12/03/2019 10:42 AM EDT Message: Patient called to see if he can scheduled a AWV with Reji Adams MD for TOV. Please contact back to discuss. Ask caller their first and last name and relationship to the patient: Patient Best time to call back: any Ok to leave a message: y Ok to send my- message: Offered Appointment: MA/Nurse/Milk Pickup Driver contacted via: Message: y Call: n Pager: n documented in this encounter Plan of Treatment Upcoming Encounters Date Type Department Care Team (Late st Contact Info) Description 12/15/2024 11:30 AM EDT Office [place] [address] Charline Ziegler MD [facility] [place] [address] documented as of this encounter Visit Diagnoses Not on filedocumented in this encounter Care Teams Histology Supervisor Relationship Specialty Start Date End Date Reji Adams MD [facility] [place] [address] PCP - General General Internal Medicine 07/13/15 documented as of this encounter
--- OUTSIDE RECORDS SUMMARY | 2024-07-09 11:12 | XMS_ITS | Encounter Summary ---
Author Organization [facility] [place] [address] Care Team Providers Care License Distributor Name Role Phone Reji Adams MD Primary Care Provider [phone] Reason for Visit * Reason Onset Date Comments Medication Refill 04/05/2019 Encounter Details Date Type Department Care Team (Late st Contact Info) Description 04/05/2019 Refill Internal Medicine at [address] [address] Reji Adams MD [facility] [place] [address] Social History Tobacco Use Types Packs/Day Years [...] 11:30 AM EDT Office [place] [address] Charline Ziegler MD [facility] [place] [address] documented as of this encounter Visit Diagnoses Not on filedocumented in this encounter Care Teams License Distributor Relationship Specialty Start Date End Date Reji Adams MD [facility] [place] [address] PCP - General General Internal Medicine 07/13/15 documented as of this encounter
--- OUTSIDE RECORDS SUMMARY | 2024-07-09 11:12 | XMS_ITS | Encounter Summary ---
Author Organization [facility] Address [facility] [place] [address] Care Team Providers Care Absence Management Consultant Name Role Phone Reji Adams MD Primary Care Provider Reason for Visit * Reason Comments Other Sore on nose not imp roving Encounter Details Date Type Department Care Team (Late st Contact Info) Description 04/22/2019 3:30 PM EDT Office Visit Internal Medicine at [address] [address] [place] MD [facility] [place] [address] Inflammatory papule; Palpitations; Low blood pressure reading Social History Tobacco Use Types Packs/Day Years [...] Sign Reading Time Taken Comments Blood Pressure 99/68 04/22/2019 3:37 PM EDT Pulse 69 04/22/2019 3:37 PM EDT Temperature - - Respiratory Rate 16 04/22/2019 3:37 PM EDT Oxygen Saturation 100% 04/22/2019 3:37 PM EDT Inhaled Oxygen Concentration - - Weight 93 kg (205 lb) 04/22/2019 3:37 PM EDT Height - - Body Mass Index 29.02 03/11/2019 9:54 AM EDT documented in this encounter Progress Notes * [place] - 04/22/2019 3:30 PM EDT Images from the original note were not included. Subjective: Patient ID: [id number] Mckeon is a 73 y.o. male Presents today for acute visit for: worsening of nose lesion PMH: prostate cancer, anxiety, depression, cervical radiculopathy, OA, jeff's thyroidits Nose lesion: Wonders if it is MRSA. Has not been pinching at the lesion. Has been present for several weeks now.Has been applying warm compresses to lesion. Has been eating more nuts recently, but not noticing more oily food intake. Palpitations: Feels like getting more palpitations than usual. No CP. Seems random. Not associated with activity / stress. Feels different than previous panic attacks. Can have episodes 2-3x/day or skip a few days. Multiple times weekly. No SOB. Weight stable. Thinks is stress related. Has had for last few months. Low blood pressure: Has an opportunity to try sildenafil. Wonders if BP is too low to take it. Repeat manual BP today 118/64. Has sildenafil 100mg tablets, cutting tablets to about 1/3 tablet. Has not taken any yet. Objective: Visit Vitals BP 99/68 (BP Location (NBP): Left arm, Patient Position: Sitting, BP Cuff Sizes: Adult (25-34 cm)) Comment (BP Cuff Sizes): Long cuff Pulse 69 Resp 16 Wt 93 kg (205 lb) SpO2 100% BMI 29.02 kg/m?? BP Readings from Last 3 Encounters: 04/22/19 99/68 04/02/19 115/71 03/11/19 114/74 Wt Readings from Last 3 Encounters: 04/22/19 93 kg (205 lb) 04/02/19 91.2 kg (201 lb) 03/11/19 91.4 kg (201 lb 9.6 oz) Physical Exam General: well appearing, in NAD Cardiac: RRR, nl s1 and s2, no murmurs Pulmonary: unlabored breathing, CTAB HEENT: nose as shown below - erythematous inflammatory papule Assessment and Plan: Mr. Mckeon is a 73 year old man with PMH prostate cancer, anxiety, depression, cervical radiculopathy, OA, and jeff's thyroiditis who presents for acute visit for various issues with plan as outlined below- 1. Inflammatory papule - appears benign, reassured patient, encouraged continued warm compress 2. Palpitations - suggested event monitor to see if these may be secondary to an arrhythmia or PVCs, but patient declined at this time 3. Low blood pressure reading - repeat manual BP 118/64. Discussed sildenafil is likely safe at lower doses - eg 1/2-1/3 tablet. FUV PRN - An After Visit Summary was printed and given to the patient. - Ken was given the necessary information on his condition and instructed to return to clinic if symptoms continue or worsen. * Reji Adams MD - 04/22/2019 3:30 PM EDT The case was discussed at the time of the visit or immediately after the visit. The assessment and plan were formulated in discussion with me and I agree with them as documented. I have reviewed the history, physical exam, assessment and plan with the resident. Major issues discussed today: Pt with lesion on side of nose going on a couple weeks. Has been applying warm compresses but seemslike not getting better. Having more palpitations. Feels different than his panic attacks. Happens several times a week. Worse over the last few months. Plan: Palpitations -holter monitor But pt declines Lesion on nose consistent with pustule -cont warm compresses documented in this encounter Plan of Treatment Upcoming Encounters Date Type Department Care Team (Late st Contact Info) Description 12/15/2024 11:30 AM EDT Office [place] [address] Charline Ziegler MD [facility] [place] [address] documented as of this encounter Visit Diagnoses Diagnosis Inflammatory papule Other specified disorder of skin Palpitations Low blood pressure reading Nonspecific low blood pressure reading documented in this encounter Care Teams Absence Management Consultant Relationship Specialty Start Date End Date Reji Adams MD [facility] [place] [address] PCP - General General Internal Medicine 07/13/15 documented as of this encounter
--- OUTSIDE RECORDS SUMMARY | 2024-07-09 11:12 | XMS_ITS | Encounter Summary ---
Author Organization [facility] [place] [address] Care Team Providers Care Assisted Living Manager Name Role Phone Reji Adams MD Primary Care Provider [phone] Reason for Visit * Reason Onset Date Comments Medication Refill 07/11/2019 Encounter Details Date Type Department Care Team (Late st Contact Info) Description 07/11/2019 Refill Internal Medicine at [address] [address] Reji Adams MD [facility] [place] [address] Social History Tobacco Use Types Packs/Day Years [...] 11:30 AM EDT Office [place] [address] Charline Ziegler MD [facility] [place] [address] documented as of this encounter Visit Diagnoses Not on filedocumented in this encounter Care Teams Assisted Living Manager Relationship Specialty Start Date End Date Reji Adams MD [facility] [place] [address] PCP - General General Internal Medicine 07/13/15 documented as of this encounter
--- OUTSIDE RECORDS SUMMARY | 2024-07-09 11:12 | XMS_ITS | Encounter Summary ---
Author Organization Replaced By [facility] [place] [address] Care Team Providers Care Assistant Teacher Name Role Phone Reji Adams MD Primary Care Provider [phone] Reason for Visit * Reason Onset Date Comments Medication Problem 08/16/2019 Encounter Details Date Type Department Care Team (Late st Contact Info) Description 08/16/2019 Refill Internal Medicine at [address] [address] Karma Bañuelos Social History Tobacco Use Types Packs/Day Years [...] encounter Miscellaneous Notes * Telephone Encounter - Karma Bañuelos - 08/16/2019 4:23 PM EST Pharmacy or caller: luis Rogers Medication:ALPRAZolam (Xanax) 0.25 mg Tablet Message: pt is calling he needs to have the prescription cancelled that was sent to the [facility] in [place] and a new prescription sent to the [facility] in [place], [place] documented in this encounter Plan of Treatment Upcoming Encounters Date Type Department Care Team (Late st Contact Info) Description 12/15/2024 11:30 AM EDT Office [place] [address] Charline Ziegler MD [facility] [place] [address] documented as of this encounter Visit Diagnoses Not on filedocumented in this encounter Care Teams Assistant Teacher Relationship Specialty Start Date End Date Reji Adams MD [facility] [place] [address] PCP - General General Internal Medicine 07/13/15 documented as of this encounter
--- OUTSIDE RECORDS SUMMARY | 2024-07-09 11:12 | XMS_ITS | Encounter Summary ---
Author Organization [facility] [address] Care Team Providers Care Graining Machine Operator Name Role Phone Reji Adams MD Primary Care Provider [phone] Encounter Details Date Type Department Care Team (Latest Contact Info) Description 01/03/2020 10:47 AM EDT - 01/03/2020 11:59 PM EDT Hospital [place] [address] Pia Strickland, CONVEYOR MECHANIC [address] [address] Scrotal swelling Discharge Disposition: Home Social History Tobacco Use [...] 81 mg by mouth daily. 03/17/2023 Saw [place] 500 mg capsule Take 500 mg by mouth daily. 03/14/2020 documented as of this encounter Plan of Treatment Upcoming Encounters Date Type Department Care Team (Late st Contact Info) Description 12/15/2024 11:30 AM EDT Office [place] [address] Charline Ziegler MD [facility] [place] [address] documented as of this encounter Procedures Procedure Name Priority Date/Time Associated Diagnosis Comments US SCROTUM Routine 01/03/2020 11:45 AM EDT Scrotal swelling documented in this encounter Results * US Scrotum (01/03/2020 11:45 AM EDT) Anatomical Region Laterality Modality Pelvis Ultrasound 01/03/2020 11:3 6 AM EDT Impressions 01/03/2020 12:14 PM EDT 1. ??The testicles are normal in size and echogenicity with the exception of prominent rete testes bilaterally. This may be expected in the setting of age and previous vasectomy. 2. ??Bilateral epididymal cysts the largest on the left measures 6.2 x 4.2 x 4.0 cm and contains swirling debris. 3. ??Small bilateral hydroceles. No varicocele. I have personally reviewed the image(s) and the resident's interpretation and agree with the findings, Jay Tavera at 01/03/2020 12:05 PM Thank you for letting us participate in the care of this patient. For questions regarding this report, please contact the number below. ? Jay Tavera, Staff Physician Electronically Signed Final Report ?? 01/03/2020 12:13 pm Narrative 01/03/2020 12:14 PM EDT Scrotal ? (Signed Final 01/03/2020 12:13 pm) PATIENT INFO: ID #: ? [id number] ?: ??[birth year] (74 yrs)(M) Name: ? KEN COLE ? Visit Date: 01/03/2020 11:36 am PERFORMED BY: Performed By: ? Vannesa Lange RDMS Attending: ?Ayse CHAVEZ, Jay Vilchis Resident: ? Ender CHAVEZ, Eliseo Rasheed Referred By: ?PIA STRICKLAND Location: ? [place] SERVICE(S) PROVIDED: ??[facility] - Scrotum and Contents with Limited Vascular ?[id number], [id number] ??evaluation - [id number] INDICATIONS: ??LEFT SCROTAL SWELLING -------- HISTORY: -------- Vasectomy RIGHT TESTICLE: Measurement(cm) ? L: ??5.0 ?AP: ?? 2.5 ? TV: ??3.7 Vol (ml): ?24.1 Vascularity: ?Normal color Doppler vascularity Comment: ?Prominent rete testis bilaterally, appearing largest ? and cystic in right testicle measuring 2.6 x 1.2 x 1.0 ? cm; echogenic foci RIGHT EPIDIDYMIS: Body: ?Normal Vascularity: ?? Mild hyperemia -------- Lesions: -------- ??# ?Date ?Location ?Description ?L ? AP ? TV (cm) ??1 ?01/03/20 ?Head ?Epididymal ?1.1 ?1.0 ? 0.6 ? cyst Comment: ?Corrugated RIGHT OTHER: Hydrocele: ? Small Varicocele: ?Not visualized LEFT TESTICLE: Measurement(cm) ? L: ??5.4 ?AP: ?? 3.0 ? TV: ??3.5 Vol (ml): ?29.9 Vascularity: ?Normal color Doppler vascularity LEFT EPIDIDYMIS: Head: ?Normal Body: ?Normal Tail: ?Normal Vascularity: ?? Normal -------- Lesions: -------- ??# ?Date ?Location ?Description ?L ? AP ? TV (cm) ??1 ?01/03/20 ?Head ?Epididymal ?6.2 ?4.2 ? 4.0 ? cyst Comment: ?Corrugated LEFT OTHER: Hydrocele: ? Small Varicocele: ?Not visualized Procedure Note Jay Tavera MD - 01/03/2020 Scrotal (Signed Final 01/03/2020 12:13 pm) PATIENT INFO: ID #: [id number] : [birth year] (74 yrs)(M) Name: KEN COLE Visit Date: 01/03/2020 11:36 am PERFORMED BY: Performed By: Vannesa Lange RDMS Attending: Ayse CHAVEZ, Jay Vilchis Resident: Eliseo Handley MD Referred By: PIA STRICKLAND Location: [place] SERVICE(S) PROVIDED: [facility] - Scrotum and Contents with Limited Vascular [id number], [id number] evaluation - [id number] INDICATIONS: LEFT SCROTAL SWELLING -------- HISTORY: -------- Vasectomy RIGHT TESTICLE: Measurement(cm) L: 5.0 AP: 2.5 TV: 3.7 Vol (ml): 24.1 Vascularity: Normal color Doppler vascularity Comment: Prominent rete testis bilaterally, appearing largest and cystic in right testicle measuring 2.6 x 1.2 x 1.0 cm; echogenic foci RIGHT EPIDIDYMIS: Body: Normal Vascularity: Mild hyperemia -------- Lesions: -------- # Date Location Description L AP TV (cm) 1 01/03/20 Head Epididymal 1.1 1.0 0.6 cyst Comment: Corrugated RIGHT OTHER: Hydrocele: Small Varicocele: Not visualized LEFT TESTICLE: Measurement(cm) L: 5.4 AP: 3.0 TV: 3.5 Vol (ml): 29.9 Vascularity: Normal color Doppler vascularity LEFT EPIDIDYMIS: Head: Normal Body: Normal Tail: Normal Vascularity: Normal -------- Lesions: -------- # Date Location Description L AP TV (cm) 1 01/03/20 Head Epididymal 6.2 4.2 4.0 cyst Comment: Corrugated LEFT OTHER: Hydrocele: Small Varicocele: Not visualized IMPRESSION 1. The testicles are normal in size and echogenicity with the exception of prominent rete testes bilaterally. This may be expected in the setting of age and previous vasectomy. 2. Bilateral epididymal cysts the largest on the left measures 6.2 x 4.2 x 4.0 cm and contains swirling debris. 3. Small bilateral hydroceles. No varicocele. I have personally reviewed the image(s) and the resident's interpretation and agree with the findings, Jay Tavera at 01/03/2020 12:05 PM Thank you for letting us participate in the care of this patient. For questions regarding this report, please contact the number below. Jay Tavera, Staff Physician Electronically Signed Final Report 01/03/2020 12:13 pm Pia Strickland APRN IMG US GEN ORDERABL ES documented in this encounter Visit Diagnoses Diagnosis Scrotal swelling Edema of male genital organs documented in this encounter Care Teams Graining Machine Operator Relationship Specialty Start Date End Date Reji Adams MD [facility] [place] [address] PCP - General General Internal Medicine 07/13/15 documented as of this encounter
--- OUTSIDE RECORDS SUMMARY | 2024-07-09 11:12 | XMS_ITS | Encounter Summary ---
Author Organization [facility] [place] [address] Care Team Providers Care Home Theatre Technician Name Role Phone Reji Adams MD Primary Care Provider [phone] Encounter Details Date Type Department Care Team (Late st Contact Info) Description 10/06/2019 12:30 PM EDT Laboratory Appointment Lab at [place] [address] [place] [address] Social History Tobacco Use Types Packs/Day Years [...] 11:30 AM EDT Office [place] [address] Charline Ziegler MD [facility] [place] [address] documented as of this encounter Procedures Procedure Name Priority Date/Time Associated Diagnosis Comments PSA (ULTRASENSITIVE) Routine 10/06/2019 12:49 PM EDT documented in this encounter Results * PSA (Ultrasensitive) (10/06/2019 12:49 PM EDT) Prostate Specific Antigen (Ultrasensitiv e) <0.01 0.00 - 4.00 ng/mL [facility] Blood specimen (specimen) Venous Draw / Unknown 10/06/2019 12:49 PM EDT 10/06/2019 3:59 PM EDT Narrative Resulting Agency Comment Spec In Lab Rigo Rocha MD CHEMISTRY ORDERABLES [facility] [place] [address] documented in this encounter Visit Diagnoses Not on filedocumented in this encounter Care Teams Home Theatre Technician Relationship Specialty Start Date End Date Reji Adams MD [facility] [place] [address] PCP - General General Internal Medicine 07/13/15 documented as of this encounter
--- OUTSIDE RECORDS SUMMARY | 2024-07-09 11:12 | XMS_ITS | Encounter Summary ---
Author Organization [facility] [place] [address] Care Team Providers Care Truck Trailer Mechanic Name Role Phone Reji Adams MD Primary Care Provider [phone] Encounter Details Date Type Department Care Team (Late st Contact Info) Description 06/25/2019 Transcribe [place] [phone] Rigo Rocha MD [address] [place] [id number] Social History Tobacco Use Types Packs/Day Years [...] 11:30 AM EDT Office [place] [address] Charline Ziegler MD [facility] [place] [address] documented as of this encounter Visit Diagnoses Not on filedocumented in this encounter Care Teams Truck Trailer Mechanic Relationship Specialty Start Date End Date Reji Adams MD [facility] [place] [address] PCP - General General Internal Medicine 07/13/15 documented as of this encounter
--- OUTSIDE RECORDS SUMMARY | 2024-07-09 11:12 | XMS_ITS | Encounter Summary ---
Author Organization [facility] [place] [address] Care Team Providers Care Customer Care Representative Name Role Phone Reji Adams MD Primary Care Provider [phone] Reason for Visit * Reason Onset Date Comments Medication Refill 03/09/2019 Encounter Details Date Type Department Care Team (Late st Contact Info) Description 03/09/2019 Refill Internal Medicine at [address] [address] Reji Adams MD [facility] [place] [address] Social History Tobacco Use Types Packs/Day Years [...] 11:30 AM EDT Office [place] [address] Charline Ziegler MD [facility] [address] documented as of this encounter Visit Diagnoses Not on filedocumented in this encounter Care Teams Customer Care Representative Relationship Specialty Start Date End Date Reji Adams MD [facility] [place] [address] PCP - General General Internal Medicine 07/13/15 documented as of this encounter
--- OUTSIDE RECORDS SUMMARY | 2024-07-09 11:12 | XMS_ITS | Encounter Summary ---
Author Organization [facility] Address [facility] [place] [address] Care Team Providers Care B2B Sales Consultant Name Role Phone Reji Adams MD Primary Care Provider [phone] Reason for Visit * Reason Comments Other 3 month followup on chronic medical issues Encounter Details Date Type Department Care Team (Late st Contact Info) Description 03/11/2019 10:00 AM EDT Office Visit Internal Medicine at [address] [address] Reji Adams MD [facility] [place] [address] Malignant neoplasm of prostate; Luana's thyroiditis; Anxiety; Hyperlipidemia, unspecified hyperlipidemia type Social History Tobacco [...] Sign Reading Time Taken Comments Blood Pressure 114/74 03/11/2019 9:54 AM EDT Pulse 65 03/11/2019 9:54 AM EDT Temperature - - Respiratory Rate - - Oxygen Saturation 100% 03/11/2019 9:5 4 AM EDT Inhaled Oxygen Concentration - - Weight 91.4 kg (201 lb 9.6 oz) 03/11/2019 9:54 AM EDT with shoes on Height 179 cm (5' 10.47) 03/11/2019 9: 54 AM EDT reported Body Mass Index 28.54 03/11/2019 9:54 AM EDT documented in this encounter Progress Notes * Reji Adams MD - 03/11/2019 10:00 AM EDT ESTABLISHED PATIENT VISIT I. HISTORY a. Reason(s) for Visit: Ken Mckeon 73 y.o. male who presents today due to complaint(s) of: Chief Complaint Patient presents with ??? Other 3 month followup on chronic medical issues b. History of Present Illness:[] Anxiety: On alprazolam 0.25mg tid. A lot of stress. Has declined SSRIS multiple times in the past. HLD: on pravastatin 20mg daily with LDL under good control at 79. No side effects. Thyroiditis: TSH 1.66 07/2018 Prostate cancer: Truong Maldonado near capsule and recommended surgery vs radiation. Pt has seen both urology and radiation oncology. c. Review of Systems: Constitutional - no fevers, chills, weight loss or gain,+ fatigue Cardiovascular - No CP, palpitations, angina, MARTIN, SOB Respiratory - No SOB, MARTIN, wheeze, cough, sputum production HEENT - No diffculty swallowing, hearing, nasal congestion \ Gastrointestinal - No abdominal pain, nausea, GERD, constipation, diarrhea, blood in stool Musculoskeletal - No weakness, pain at rest or with movement All other systems negative d. PMH Patient Active Problem List Diagnosis ??? Malignant neoplasm of prostate ??? S/P rotator cuff repair ??? Trigger finger, left ring finger ??? Chronic left shoulder pain ??? Arthritis of right elbow ??? Asymmetrical sensorineural hearing loss ??? Left ear pain ??? Shoulder pain, bilateral ??? Right arm numbness ??? Right hand pain ??? Peripheral neuropathy Diagnosis in progress, decrease in sharp sensation, and vibratory sensation in b/l feet ??? Numbness Lateral three digits of R hand ??? Urinary urgency W/ hesitency, given duration, likely BPH ??? Cervical stenosis of spinal canal ??? Back pain ??? Depression ??? Left shoulder pain ??? Cervical radiculopathy ??? Insomnia ??? Neck pain ??? Anxiety ??? Lightheadedness ??? Varicose veins of legs ??? OA (osteoarthritis) of knee right ??? Cataract extraction status of left eye ??? Status post total knee replacement TKR Right knee in 2007 Soc: Social History Tobacco Use ??? Smoking status: Never Smoker ??? Smokeless tobacco: Current User Types: Chew ??? Tobacco comment: 3 cans/ week. Substance Use Topics ??? Alcohol use: Yes Alcohol/week: 0.0 - 0.6 oz Frequency: Monthly or less Drinks per session: 1 or 2 Comment: rarely II. PHYSICAL EXAM: BP 114/74 (BP Location (NBP): Left arm, Patient Position: Sitting, BP Cuff Sizes: Large Adult (32-43 cm)) Pulse 65 Ht 179 cm (5' 10.47) Comment: reported Wt 91.4 kg (201 lb 9.6 oz) Comment: with shoes on SpO2 100% BMI 28.54 kg/m?? General - No acute distress, conversing without difficulty. ENT - oropharynx without lesions. Eyes - EOMI. No scleral icterus Neck - No lymphadenopathy, supple, no masses Lungs - Clear to auscultation Heart - RRR, S1,S2, no murmur, gallop or rub. Extremities - No clubbing, cyanosis or edema. Pulses intact. III. ASSESSMENT/PLAN:Ken Mckeon 73 y.o. male presenting for f/u. Ken was seen today for other. Diagnoses and all orders for this visit: Malignant neoplasm of prostate - Discussed pros vs cons of radiation vs surgery. - Pt still unclear how would like to proceed - Discussed that similar outcomes so from than sense can't make a poor decision. - Surgery gives more pathological information (capsule extension) etc but again does not change outcomes much if any (metastatic disease or ) Luana's thyroiditis - Stable Anxiety - No change in meds Hyperlipidemia, unspecified hyperlipidemia type The majority of this visit was spent in counseling and/or coordination of care as noted below. (Established patient total visit time: 79637 - 15 minutes, 43525 - 25 minutes, 04003 - 40 minutes; New patient total visit times: 56782 - 30 minutes, 88633 - 45 minutes, 82808 - 60 minutes) Time statement Minutes Total time spent in [id number] care with patient and/or family: 40 Time spent in counseling patient, family, and/or caregivers: 40 Counseling and discussion about the issues addressed in the assessment above, as well as about: [ x] likely explanations for symptoms and physical exam findings [ ] interpretation of available lab or other diagnostic test results [ ] justification for additional diagnostic work up [x ] expected benefits of treatment [ x ] possible side effects and risks of treatment [x ] self-management strategies and resources [ x ] prognosis/anticipated course Meds reconciled documented in this encounter Plan of Treatment Upcoming Encounters Date Type Department Care Team (Late st Contact Info) Description 12/15/2024 11:30 AM EDT Office [place] [address] Charline Ziegler MD [facility] [place] [address] documented as of this encounter Visit Diagnoses Diagnosis Malignant neoplasm of prostate Luana's thyroiditis Chronic lymphocytic thyroiditis Anxiety Anxiety state, unspecified Hyperlipidemia, unspecified hyperlipidemia type documented in this encounter Care Teams B2B Sales Consultant Relationship Specialty Start Date End Date Reji Adams MD [facility] [place] [address] PCP - General General Internal Medicine 07/13/15 documented as of this encounter
--- OUTSIDE RECORDS SUMMARY | 2024-07-09 11:12 | XMS_ITS | Encounter Summary ---
Author Organization [facility] [place] [address] Care Team Providers Care Audio Experience Expert Name Role Phone Reji Adams MD Primary Care Provider [phone] Encounter Details Date Type Department Care Team (Late Contact Info) Description 04/28/2019 10:30 AM EDT Laboratory Appointment Internal Medicine at [place] [id number] Social History Tobacco Use Types Packs/Day Years [...] 11:30 AM EDT Office [place] [address] Charline Ziegler MD [facility] [place] [address] documented as of this encounter Visit Diagnoses Not on filedocumented in this encounter Care Teams Audio Experience Expert Relationship Specialty Start Date End Date Reji Adams MD [facility] INTERNAL [place] [address] PCP - General General Internal Medicine 07/13/15 documented as of this encounter
--- OUTSIDE RECORDS SUMMARY | 2024-07-09 11:12 | XMS_ITS | Encounter Summary ---
Author Organization [facility] [place] [address] Care Team Providers Care Fermenter Wine Name Role Phone Reji Adams MD Primary Care Provider [phone] Reason for Visit * Reason Onset Date Comments New Medication Request 10/22/2019 Encounter Details Date Type Department Care Team (Late st Contact Info) Description 10/22/2019 Telephone Internal Medicine at [address] [address] Dafne Peter New Medication Request Social History Tobacco Use Types Packs/Day [...] Miscellaneous Notes * Telephone Encounter - Dafne Bhakta - 10/22/2019 10:08 AM EDT Please remind every patient that prescription requests can take up to 72 business hours to process PLEASE REMEBER TO CHECK IF ANY REFILLS MAY BE REMAINING AT THE PHARMACY Medication Refill Request: Name of Medication: Meloxicam Dose as Prescribed: Lowest dose How many days left: Prescriber: Reji Adasm MD Pharmacy Name & Location: [facility] Caller would like clinic to reach out to the Pharmacy: Patient declined scheduling an appointment: declined Ask caller their first and last name and relationship to the patient: Patient Best time to call back: any Ok to leave a message: yes Ok to send [facility] message: no Did you contact your pharmacy: x Patient was in the past on this. documented in this encounter Plan of Treatment Upcoming Encounters Date Type Department Care Team (Late st Contact Info) Description 12/15/2024 11:30 AM EDT Office [place] [address] [facility] [place] [address] documented as of this encounter Visit Diagnoses Not on filedocumented in this encounter Care Teams Fermenter Wine Relationship Specialty Start Date End Date Reji Adams MD [facility] GENER[place] [address] PCP - General General Internal Medicine 07/13/15 documented as of this encounter
--- OUTSIDE RECORDS SUMMARY | 2024-07-09 11:12 | XMS_ITS | Encounter Summary ---
Author Organization [facility] [place] [address] Care Team Providers Care Bilingual Administrative Assistant Name Role Phone Reji Adams MD Primary Care Provider [phone] Reason for Visit * Reason Onset Date Comments Appointment 04/23/2019 Encounter Details Date Type Department Care Team (Late Contact Info) Description 04/23/2019 Telephone Internal Medicine at [place] [id number] Ace Collado Appointment Social History Tobacco Use Types Packs/Day [...] encounter Miscellaneous Notes * Telephone Encounter - Ace Collado - 04/23/2019 3:19 PM EDT Please verify appropriateness of appointment scheduled on 04/28 at 10:30 for Flu Shot . Please contact patient with any changes. Thank you documented in this encounter Plan of Treatment Upcoming Encounters Date Type Department Care Team (Late st Contact Info) Description 12/15/2024 11:30 AM EDT Office Visit [place] [address] Charline Ziegler MD [facility] [place] [address] documented as of this encounter Visit Diagnoses Not on filedocumented in this encounter Care Teams Bilingual Administrative Assistant Relationship Specialty Start Date End Date Reji Adams MD [facility] GENER[facility] [place] [address] PCP - General General Internal Medicine 07/13/15 documented as of this encounter
--- OUTSIDE RECORDS SUMMARY | 2024-07-09 11:12 | XMS_ITS | Encounter Summary ---
Author Organization [facility] [place] [address] Care Team Providers Care Radiologic Technology Teacher Name Role Phone Reji Adams MD Primary Care Provider [phone] Reason for Visit * Reason Onset Date Comments Medication Refill 11/02/2019 Encounter Details Date Type Department Care Team (Late st Contact Info) Description 11/02/2019 Refill Internal Medicine at [address] [address] Reji Adams MD [facility] GENERAL [place] [address] Anxiety Social History Tobacco Use Types Packs/Day [...] 11:30 AM EDT Office Visit Gastroenterology at [facility] [place] [address] Charline Ziegler MD [facility] [place] [address] documented as of this encounter Visit Diagnoses Diagnosis Anxiety Anxiety state, unspecified documented in this encounter Care Teams Radiologic Technology Teacher Relationship Specialty Start Date End Date Reji Adams MD [facility] GENER[facility] [place] [address] PCP - General General Internal Medicine 07/13/15 documented as of this encounter
--- OUTSIDE RECORDS SUMMARY | 2024-07-09 11:12 | XMS_ITS | Encounter Summary ---
Author Organization [facility] [place] [address] Care Team Providers Care Java Integration Developer Name Role Phone Reji Adams MD Primary Care Provider [phone] Encounter Details Date Type Department Care Team (Late st Contact Info) Description 01/03/2020 10:50 AM EDT Laboratory Appointment Lab [address] [place] [address] Social History Tobacco Use Types Packs/Day Years [...] 11:30 AM EDT Office [place] [address] Charline Ziegler MD [facility] [place] [address] documented as of this encounter Procedures Procedure Name Priority Date/Time Associated Diagnosis Comments PSA (ULTRASENSITIVE) Routine 01/03/2020 10:43 AM EDT documented in this encounter Results * PSA (Ultrasensitive) (01/03/2020 10:43 AM EDT) Prostate Specific Antigen (Ultrasensitiv e) <0.01 0.00 - 4.00 ng/mL [facility] Blood specimen (specimen) Venous Draw / Unknown 01/03/2020 10:43 AM EDT 01/03/2020 10:47 AM EDT Narrative Resulting Agency Comment Spec In Lab Pia Stout NURSE LDR CHEMISTRY ORDERABLE S [facility] [place] [address] documented in this encounter Visit Diagnoses Not on filedocumented in this encounter Care Teams Java Integration Developer Relationship Specialty Start Date End Date Reji Adams MD [facility] GENERAL [place] [address] PCP - General General Internal Medicine 07/13/15 documented as of this encounter
--- OUTSIDE RECORDS SUMMARY | 2024-07-09 11:12 | XMS_ITS | Encounter Summary ---
Author Organization [facility] [place] [address] Care Team Providers Care Adjunct Latin Professor Name Role Phone Reji Adams MD Primary Care Provider [phone] Reason for Referral * Consultation (Routine) - Closed Specialty Diagnoses / Procedures Referred By Duglas t Referred To Contact Gastroenterology Diagnoses Unexplained weight loss Reji Adams MD [facility] [place] [address] [facility] Endoscopy [address] [place] [phone] Referral ID Status Reason Start Date Expiration Date V isits Requested Visits Authorized [id number] Closed Test Only 01/05/2020 01/04/2021 1 1 * Consultation (Routine) - Closed Specialty Diagnoses / Procedures Referred By Duglas t Referred To Contact Gastroenterology Diagnoses Unexplained weight loss Reji Adams MD [facility] [place] [address] [facility] Endoscopy [address] [place] [phone] Referral ID Status Reason Start Date Expiration Date V isits Requested Visits Authorized [id number] Closed Test Only 01/05/2020 01/04/2021 1 1 Reason for Visit * Reason Onset Date Comments Referral 01/05/2020 Encounter Details Date Type Department Care Team (Late st Contact Info) Description 01/05/2020 Telephone Internal Medicine at [facility] [address] [place] [address] Johnathon Rich Referral Social History Tobacco Use Types Packs/Day [...] encounter Miscellaneous Notes * Telephone Encounter - Johnathon Rich - 01/05/2020 9:54 AM EDT Message: The patient is calling the office because he called gastroenterology this morning to try to get his upper endoscopy scheduled and colonoscopy. The patient states that they told him they don't have a referral in the system for this yet and the patient is wondering if they could be ordered so he can get scheduled. Ask caller their first and last name and relationship to the patient: Patient Best time to call back: Any Ok to leave a message: y Ok to send [facility] message: n Offered Appointment: n MA/Nurse/[place] contacted via: Message: y Call: n Pager: n documented in this encounter Plan of Treatment Upcoming Encounters Date Type Department Care Team (Late st Contact Info) Description 12/15/2024 11:30 AM EDT Office [place] [phone] Charline Ziegler MD [facility] [place] [address] Scheduled Referrals Name Type Priority Associated Diagnoses Order Schedule Referral to Gastroenterology Outpatient Referral Routine Unexplained weight loss Ordered: 01/05/2020 Referral to Gastroenterology Outpatient Referral Routine Unexplained weight loss Ordered: 01/05/2020 documented as of this encounter Visit Diagnoses Diagnosis Unexplained weight loss Loss of weight documented in this encounter Care Teams Adjunct Latin Professor Relationship Specialty Start Date End Date Reji Adams MD [facility] [place] [address] PCP - General General Internal Medicine 07/13/15 documented as of this encounter
--- OUTSIDE RECORDS SUMMARY | 2024-07-09 11:12 | XMS_ITS | Encounter Summary ---
Author Organization [facility] Address [facility] [place] [address] Care Team Providers Care Curtain Cutter Name Role Phone Reji Adams MD Primary Care Provider [phone] Reason for Visit * Reason Comments Weight Loss Unintentional loss o loreto past several months Encounter Details Date Type Department Care Team (Late st Contact Info) Description 12/22/2019 10:20 AM EDT TH Visit (TeleHealth) Internal Medicine at [address] [address] Mirlande New MD [facility] GENERAL [place] [address] Weight loss; Constipation, unspecified constipation type Social History Tobacco [...] Sign Reading Time Taken Comments Blood Pressure 119/76 12/22/2019 10:12 AM EDT Pulse - - Temperature 35.6 ??C (96 ??F) 12/22/2019 10: 12 AM EDT Respiratory Rate - - Oxygen Saturation - - Inhaled Oxygen Concentration - - Weight 84.4 kg (186 lb) 12/22/2019 10:1 2 AM EDT approx - patient reported Height 179.5 cm (5' 10.67) 12/22/2019 10:12 AM EDT reported from visit 03/11/2019 Body Mass Index 26.19 12/22/2019 10:12 AM EDT documented in this encounter Progress Notes * Dana Good CCMA - 12/22/2019 10:20 AM EDT Telephone/Telehealth Based Clinical Care Note - this note was started by Kristian Good and completed by me, Mirlande New MD. Ken Mckeon verbally consented to conduct this clinical encounter by telephone or video/telehealth. he acknowledges that his insurance may be billed for the care provided, similar to an in person appointment. Ken Mckeon is in the following location at the time of the phone call: [place], [place] (document location including state) Reason for visit/chief complaint: Chief Complaint Patient presents with ??? Weight Loss Unintentional loss over past several months Current Medications (which were reviewed during the visit): Medications 12/22/19 1011 Medication Sig Taking? tadalafiL (CIALIS) 5 mg Tablet Take 5 mg by mouth as needed for Erectile Dysfunction. Yes sildenafiL (VIAGRA) 100 mg Tablet Take 100 mg by mouth as needed for Erectile Dysfunction. Yes ALPRAZolam (Xanax) 0.25 mg Tablet Take 1 tablet by mouth 3 times daily as needed for Anxiety. Yes meloxicam (MOBIC) 7.5 mg Tablet Take 1 tablet by mouth daily. Yes pravastatin (Pravachol) 20 mg Tablet Take 1 tablet by mouth daily. Yes BORON ORAL Take by mouth daily. Yes MALCOLM EXTRACT ORAL Take by mouth. Yes acetaminophen (TYLENOL ARTHRITIS PAIN) 650 mg Tablet Sustained Release Take 650 mg by mouth every 8hours as needed for Pain. Do not exceed 6 tabs in 24 hours Yes aspirin 81 mg Tablet, Delayed Release (E.C.) Take 81 mg by mouth daily. Yes multivitamin (THERAGRAN) tablet Take 1 tablet by mouth daily. Yes Saw [place] 500 mg capsule Take 500 mg by mouth daily. Patient Reported: Vitals: 12/22/19 1012 Height: 179.5 cm (5' 10.67) Wt Readings from Last 3 Encounters: 04/22/19 93 kg (205 lb) 04/02/19 91.2 kg (201 lb) 03/11/19 91.4 kg (201 lb 9.6 oz) Documentation of content of discussion: is concerned about losing weight. Weight is now 186 lbs. Hasn't been trying to lose. Noticed when his pants weren't fitting as well. Appetite is ok, eating fine. Generally feels well. Is retired. Tries to walk every day, work in yard and has felt fine doing that. Bowels have been erratic (but always have been). Has been taking senna, stool softeners. No abdominal pain, although is straining a lot. No blood in stools and no black stools. No n/v. After eating something fried/greasy, has noticed more phlegm in the back of his throat. No heartburn/indigestion, except after cialis. 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 rec avoiding nsaids - which he has done. meloxicam is on med list but is taking rarely. Does take asa 81 mg. Last colon 2007 Slight SOB, occ palpitations (relates to his anxiety). occ difficulty sleeping, no sweats, + chronic joint aches. + discomfort in perineal area (addressed with urology, has had since his prostatectomy last fall). No blood in urine. occ hesitancy without incontinence. Has noticed that his stream is not as straight for the past month. BP is on the low side - gets lightheaded if he leans over and stands back up. + anxiety, but that is nothing new. Assessment and Plan: unintentional weight loss in pt that is otherwise feeling at his baseline. Will proceed with check of cmp, cbc and tsh (has history of low TSH). He is also due for his PSA test which will also be done. If negative then will need to do further investigation which may include EGD/colon given these are areas of his only localizing symptoms. Follow Up: by phone after labs. For Telephone Visits - total time spent associated with the visit including patient discussion and pre/post visit chart activities: 25 minutes Telephone/Telehealth visit codes: Established Patient New Patient 77938 (10 minute visit) 17553 (10 minute visit) 74940 (15 minute visit) 83402 (20 minute visit) 97717 (25 minute visit) 34608 (30 minute visit) 71231 (40 minute visit) 86228 (45 minute visit) 69204 (60 minute visit) * Mirlande New MD - 12/22/2019 10:20 AM EDT See note of Dana Good for the contents of my visit. This note was written by and signed by me. documented in this encounter Plan of Treatment Upcoming Encounters Date Type Department Care Team (Late st Contact Info) Description 12/15/2024 11:30 AM EDT Office [place] [address] Charline Ziegler MD [facility] [place] [address] documented as of this encounter Results * Comprehensive metabolic panel (non-fasting) (12/24/2019 8:33 AM EDT) [facility] Glucose 85 65 - 199 mg/dL [facility] Comment:Diabetes: >=200 mg/d L plus symptoms Blood Urea Nitrogen 16 10 - 20 mg/dL [facility] Creatinine 1.11 0.80 - 1.50 mg/dL [facility] Sodium 142 135 - 145 mmol/L [facility] Potassium 3.9 3.5 - 5.0 mmol/L [facility] Comment: Please note: ??Patients with WBC >100,000 may have falsely elevated Potassium levels. ??For accurate Potassium quantification in these patients send serum separator tube (gold top) for subsequent determinations. ??Contact the Clinical Chemistry Laboratory if there are any questions. Chloride 104 98 - 107 mmol/L [facility] Carbon Dioxide 26 22 - 31 mmol/L [facility] Anion Gap 12 5 - 15 mmol/L [facility] Calcium 9.7 8.5 - 10.5 mg/dL [facility] Protein, Total 7.1 6.1 - 8.0 gm/dL [facility] Albumin 4.6 3.2 - 5.2 gm/dL [facility] Aspartate Aminotransferase 19 0 - 39 unit/L [facility] Alanine Aminotransferase 10 0 - 55 unit/L [facility] Alkaline Phosphatase 54 40 - 130 unit/L [facility] Bilirubin, Total 0.8 0.2 - 1.3 mg/dL [facility] Est Glomerular Filtration Rate 66 >=60 mL/min/1. 73 m?? [facility] Comment: The eGFR was calculated using the CKD-EPI equation. As with all creatinine based estimates of kidney function, eGFR values calculated with the CKD-EPI equation are not accurate in patients with acute kidney failure, extremes of body mass or the acutely ill. http://[employer]/[facility] [place] eGFR 76 >=60 mL/min/1. 73 m?? [facility] Comment: The eGFR was calculated using the CKD-EPI equation. As with all creatinine based estimates of kidney function, eGFR values calculated with the CKD-EPI equation are not accurate in patients with acute kidney failure, extremes of body mass or the acutely ill. http://[employer]/[facility] [place] Blood specimen (specimen) 12/24/2019 8:33 AM EDT 12/24/2019 10:24 AM EDT Narrative Resulting Agency Comment Spec In Lab Mirlande New MD CHEMISTRY ORDERABLES [facility] [place] [address] * TSH (12/24/2019 8:33 AM EDT) Thyroid Stimulating Hormone 1.52 0.27 - 4.20 mcIU/mL [facility] Blood specimen (specimen) 12/24/2019 8:33 AM EDT 12/24/2019 10:24 AM EDT Narrative Resulting Agency Comment Spec In Lab Mirlande New MD CHEMISTRY ORDERABLES [facility] [place] [address] documented in this encounter Visit Diagnoses Diagnosis Weight loss Loss of weight Constipation, unspecified constipation type documented in this encounter Care Teams Curtain Cutter Relationship Specialty Start Date End Date Reji Adams MD [facility] GENERAL [place] [address] PCP - General General Internal Medicine 07/13/15 documented as of this encounter
--- OUTSIDE RECORDS SUMMARY | 2024-07-09 11:12 | XMS_ITS | Encounter Summary ---
Author Organization [facility] Address [facility] [place] [address] Care Team Providers Care Veneer Puller Name Role Phone Reji Adams MD Primary Care Provider [phone] Reason for Referral * Consultation (Routine) - Closed Specialty Diagnoses / Procedures Referred By Duglas arizmendi Referred To Contact Radiation Oncology Diagnoses Malignant neoplasm of prostate Procedures Simulation for Radiation Therapy Planning Rayo Davis MD [facility] [place] [address] [facility] [place] [address] Referral ID Status Reason Start Date Expiration Date V isits Requested Visits Authorized [id number] Closed Consult, Test & Treat 03/11/2019 03/10/2020 1 1 Encounter Details Date Type Department Care Team (Late st Contact Info) Description 03/11/2019 Orders [place] [phone] Rayo Davis MD Malignant neoplasm of prostate [...] 11:30 AM EDT Office [place] [address] Charline Ziegler MD [facility] [place] [address] Scheduled Orders Name Type Priority Associated Diagnoses Orde r Schedule Simulation for Radiation Therapy Planning Procedures Routine Malignant neoplasm of prostate Ordered: 03/11/2019 documented as of this encounter Visit Diagnoses Diagnosis Malignant neoplasm of prostate documented in this encounter Care Teams Veneer Puller Relationship Specialty Start Date End Date Reji Adams MD [facility] GENERAL [place] [address] PCP - General General Internal Medicine 07/13/15 documented as of this encounter
--- OUTSIDE RECORDS SUMMARY | 2024-07-09 11:12 | XMS_ITS | Encounter Summary ---
Author Organization [facility] Address [facility] [place] [address] Care Team Providers Care Hand Developer Name Role Phone Reji Adams MD Primary Care Provider [phone] Encounter Details Date Type Department Care Team (Late st Contact Info) Description 02/09/2019 Tele[place] [phone] Padmini Rico MD [facility] [place] [address] Social History Tobacco Use Types Packs/Day Years [...] encounter Miscellaneous Notes * Telephone Encounter - Padmini Rico MD - 02/09/2019 1:33 PM EDT I called Mr Mckeon back. He wants to know when he can restart his baby aspirin. No blood in urine, small amount of blood in stools. I told him he can restart tonight. documented in this encounter Plan of Treatment Upcoming Encounters Date Type Department Care Team (Late st Contact Info) Description 12/15/2024 11:30 AM EDT Office [place] [address] Charline Ziegler MD [facility] [place] [address] documented as of this encounter Visit Diagnoses Not on filedocumented in this encounter Care Teams Hand Developer Relationship Specialty Start Date End Date Reji Adams MD [facility] [place] [address] PCP - General General Internal Medicine 07/13/15 documented as of this encounter
--- OUTSIDE RECORDS SUMMARY | 2024-07-09 11:12 | XMS_ITS | Encounter Summary ---
Author Organization [facility] [place] [address] Care Team Providers Care Web Communications Specialist Name Role Phone Reji Adams MD Primary Care Provider [phone] Reason for Visit * Reason Onset Date Comments Medication Refill 05/05/2019 Encounter Details Date Type Department Care Team (Late st Contact Info) Description 05/05/2019 Refill Internal Medicine at [address] [address] Reji Adams MD [facility] [place] [address] Social History Tobacco Use Types Packs/Day Years [...] 11:30 AM EDT Office [place] [address] Charline Ziegler MD [facility] [place] [address] documented as of this encounter Visit Diagnoses Not on filedocumented in this encounter Care Teams Web Communications Specialist Relationship Specialty Start Date End Date Reji Adams MD [facility] [place] [address] PCP - General General Internal Medicine 07/13/15 documented as of this encounter
--- OUTSIDE RECORDS SUMMARY | 2024-07-09 11:12 | XMS_ITS | Encounter Summary ---
Author Organization [facility] [address] Care Team Providers Care Senior Insight Manager Name Role Phone Reji Adams MD Primary Care Provider [phone] Encounter Details Date Type Department Care Team (Late st Contact Info) Description 12/28/2019 Telephone Internal Medicine at [address] [address] Dafne Hickey, RN Social History [...] Telephone Encounter - Dafne Hickey RN - 12/28/2019 12:03 PM EDT Phoned patient, relayed message from Dr. New- he asked for an appointment to be set up for tomorrow and to be notified vis myD-H of the time * Telephone Encounter - Dafne Hickey RN - 12/28/2019 12:00 PM EDT ----- Message from Mirlande New MD sent at 12/28/2019 11:53 AM EDT ----- Can you call pt nad let him know that his labs are all normal and that I spoke to Dr. Adams and dequan the next step would be to do an EGD and colonoscopy. If he would like to meet with me before doing those studies with formal exam in office (other was done on televisit), I would be happy to dothat, and I think I have openings tomorrow. CM ----- Message ----- From: Reji Adams MD Sent: 12/27/2019 5:52 PM EDT To: Mirlande New MD I think that is the next step. If neg then may need to consider CT ----- Message ----- From: Mirlande New MD Sent: 12/26/2019 7:35 PM EDT To: Reji Adams MD Spoke to him about his weight loss but not examined him. Has had 20 lb weight loss. Labs completelynormal. Only localizing symptoms are his chronic GI symptoms, what are your thoughts about going ahead with egd/colon, CM ----- Message ----- From: Leobardo Delgado In seven Sent: 12/24/2019 10:47 AM EDT To: Mirlande New MD documented in this encounter Plan of Treatment Upcoming Encounters Date Type Department Care Team (Late st Contact Info) Description 12/15/2024 11:30 AM EDT Office [place] [address] Charline Ziegler MD [facility] [place] [address] documented as of this encounter Visit Diagnoses Not on filedocumented in this encounter Care Teams Senior Insight Manager Relationship Specialty Start Date End Date Reji Adams MD [facility] GENERAL [place] [address] PCP - General General Internal Medicine 07/13/15 documented as of this encounter
--- OUTSIDE RECORDS SUMMARY | 2024-07-09 11:12 | XMS_ITS | Encounter Summary ---
Author Organization [facility] Address [facility] [place] [address] Care Team Providers Care Shop Router Name Role Phone Reji Adams MD Primary Care Provider [phone] Encounter Details Date Type Department Care Team (Late st Contact Info) Description 02/09/2019 [place] [phone] Tobias Mcginnis MD [facility] [place] [address] Social History Tobacco Use Types Packs/Day Years [...] Miscellaneous Notes * Telephone Encounter - Tressa Avery - 02/09/2019 1:24 PM EDT PT called and requests to speak with a nurse regarding his aspirin regiment. Spoke with nurse Crowe who reports that PT should speak to a resident. Relayed to PT that I would send a message to the residents and ask them to call PT. PT understands and agrees to plan. [phone] documented in this encounter Plan of Treatment Upcoming Encounters Date Type Department Care Team (Late st Contact Info) Description 12/15/2024 11:30 AM EDT Office Visit [place] [address] Charline Ziegler MD [facility] [address] documented as of this encounter Visit Diagnoses Not on filedocumented in this encounter Care Teams Shop Router Relationship Specialty Start Date End Date Reji Adams MD [facility] [place] [address] PCP - General General Internal Medicine 07/13/15 documented as of this encounter
--- OUTSIDE RECORDS SUMMARY | 2024-07-09 11:12 | XMS_ITS | Encounter Summary ---
Author Organization [facility] Address [facility] [place] [address] Care Team Providers Care Public Works Supervisor Name Role Phone Reji Adams MD Primary Care Provider [phone] Reason for Referral * Consultation (Routine) - Closed Specialty Diagnoses / Procedures Referred By Contac t Referred To Contact Radiation Oncology Diagnoses Malignant neoplasm of prostate Tobias Mcginnis MD [facility] [place] [address] [facility] [place] [address] Referral ID Status Reason Start Date Expiration Date V isits Requested Visits Authorized [id number] Closed Consult, Test & Treat 02/11/2019 02/11/2020 1 1 * Diagnostic Test (Routine) - Closed Specialty Diagnoses / Procedures Referred By Contac t Referred To Contact Radiology Diagnoses Malignant neoplasm of prostate Procedures NM Whole Body Bone Scan Tobias Mcginnis MD [facility] [place] [address] [facility] [place] [address] Referral ID Status Reason Start Date Expiration Date V isits Requested Visits Authorized [id number] Closed Specialty Service Requested 02/11/2019 02/11/2020 1 1 Encounter Details Date Type Department Care Team (Late st Contact Info) Description 02/11/2019 [place] [address] Tobias Mcginnis MD [facility] [place] [address] Malignant neoplasm of prostate Social History Tobacco [...] as of this encounter Progress Notes * Tobias Mcginnis MD - 02/11/2019 2:56 PM EDT I called with biopsy results that show nacho 8 disease. I recommended Bone scan for staging, appointment with me and radiation oncology to discuss treatment. documented in this encounter Plan of Treatment Upcoming Encounters Date Type Department Care Team (Late st Contact Info) Description 12/15/2024 11:30 AM EDT Office [place] [address] Charline Ziegler MD [facility] [place] [address] Scheduled Referrals Name Type Priority Associated Diagnoses Orde r Schedule Referral to Radiation Oncology Outpatient Referral Routine Malignant neoplasm of prostate Ordered: 02/11/2019 documented as of this encounter Results * NM Whole Body [...] contact the number below. Tobias Mcginnis MD IM [place] ORDERABLES documented in this encounter Visit Diagnoses Diagnosis Malignant neoplasm of prostate Malignant neoplasm of prostate documented in this encounter Care Teams Public Works Supervisor Relationship Specialty Start Date End Date Reji Adams MD [facility] [place] [address] PCP - General General Internal Medicine 07/13/15 documented as of this encounter
--- OUTSIDE RECORDS SUMMARY | 2024-07-09 11:12 | XMS_ITS | Encounter Summary ---
Author Organization [facility] Address [facility] [place] [address] Care Team Providers Care Resident Care Director Name Role Phone Reji Adams MD Primary Care Provider [phone] Encounter Details Date Type Department Care Team (Late st Contact Info) Description 02/25/2019 10:30 AM EDT Office Visit H[place]ology [place] [address] Tobias Mcginnis MD [facility] [place] [address] Malignant neoplasm of prostate Social History Tobacco [...] Sign Reading Time Taken Comments Blood Pressure 115/72 02/25/2019 10:25 AM EDT Pulse 65 02/25/2019 10:25 AM EDT Temperature 36.5 ??C (97.7 ??F) 02/25/2019 10:25 AM E DT Respiratory Rate 16 02/25/2019 10:25 AM EDT Oxygen Saturation 100% 02/25/2019 10:25 AM EDT Inhaled Oxygen Concentration - - Weight 92 kg (202 lb 13.2 oz) 02/25/2019 10:22 A M EDT Height 179 cm (5' 10.47) 02/25/2019 10:24 AM ED T Body Mass Index 28.71 02/25/2019 10:22 AM EDT documented in this encounter Progress Notes * Omaira Antonio RN - 02/25/2019 10:30 AM EDT Prostate IPSS and BINH(Pt Entered): last 5 values Prostate Today's Scores 04/07/2017 02/08/2019 Sexual Health Inventory for Men 22 25 International Prostate Symptom Score 17 (Moderate LUTS) 9 (Moderate LUTS) * Tobias Mcginnis MD - 02/25/2019 10:30 AM EDT Urologic Outpatient Consult Note HPI: Ken Mckeon is a 73 y.o. year old male here for follow-up of LUTS, Fatigue, erectile dysfunction and new diagnosis high risk prostate cancer. Seen initially 02/2017 Symptoms started 3-4 weeks. The patient reports urinary frequency / dribbling during the day. No dysuria. No nocturia. No hematuria. He reports a history of prostatitis with improvement after antibiotics (cipro / lovofloxacin / bactrim) last antibiotic course for prostatitis approximately 10 years ago (unsure if there were ever cultures). Nausea but no fevers chills. No perineal pain but some RLQ pain similar to hernia in the past. Frequency (he did a diary and voided 17x in the day he feels this may be about average). Only nocturia x1-2. He has had issues with post-operative retention in the past. Drinks 80oz / water plus 20oz of soda Was taking phenylephrine for allergies and notes that voiding is worse with this. PSA found to be elevated and persistently elevated on recheck PSA History: 06/2015 - 3.4 02/2017 - 6.19 03/2017 - TRUS biopsy negative 09/2017 - 6.62 04/2018 - 6.59 10/2018 - 8.11 (12% free) 11/2018 - mpMRI, P5 lesion at the anterior PZ base and mid gland, bulging of border but no obvious PARRISH. No SVI / LAD mpMRI prompted a fusion biopsy that revealed sinan 8 cancer as per below. Surgical Pathology DIAGNOSIS Prostate needle core biopsies: A - Right Lateral Base: ??- ??Benign prostatic tissue. B - Right Lateral Mid: ??- ??Benign prostatic tissue. C - Right Lateral [place]: ??- ??Benign prostatic tissue. D - Right Base: ??- ??Benign prostatic tissue. E - Right Mid: ??- ??Benign prostatic tissue. F - Right [place]: ??- ??Benign prostatic tissue. G - Left Lateral Base: ??- ??Benign prostatic tissue. H - Left Lateral Mid: ??- ??Benign prostatic tissue. I - Left Lateral [place]: ??- ??Benign prostatic tissue. J - Left Base: ??- ??Benign prostatic tissue. K - Left Mid: ??- ??Benign prostatic tissue. L - Left [place]: ??- ??Benign prostatic tissue. M - bx w/ fusion: ??- ??Prostatic adenocarcinoma, ??Grade Group 4 ??(Sinan score 4+4=8), ? involving 3 of 3 cores (50%, 40%, and 20%, respectively). ??- Cribriform pattern 4 is present. Electronically signed by: ??MD Orestes, Real Umanzor Verified: ??02/10/2019 ?Pathologist Performed at: ??-[facility] Dept. of Pathology, [place], [place] PMHx: Past Medical History: Diagnosis Date ??? BPH (benign prostatic hyperplasia) ??? Neck pain 08/24/2012 ??? OA (osteoarthritis) of knee right PSHx: Past Surgical History: Procedure Laterality Date ??? CREATED BY INTERFACE Past surg hx. Procedure Date: 09/19/2010 ??? PRO COLONOSCOPY, DIAGNOSTIC 09/07/2013 COLONOSCOPY, DIAGNOSTIC performed by Ximena Gu MD at [facility] ENDOSCOPY ??? PRO LIGATE/STRIP LONG SAPH VEIN BELW SEP-FEM JUNC 06/02/2012 LIGATION\DIV\STRIP GREATER SAPHENOUS VEIN performed by BEATRICE RODRÍGUEZ at [facility] MAIN OR ??? PRO PHLEB VEINS - EXTREM - TO 20 06/02/2012 STAB PHLEBECTOMY KARLI VEINS, EXTREMITY 10-20 INCISIONS-SANTI performed by BEATRICE RODRÍGUEZ at [facility] MAIN OR ??? PRO UPPER GI ENDOSCOPY, BIOPSY N/A 09/02/2017 EGD WITH BIOPSY (WRVU 2.49) performed by Rahul Escobar MD at [facility] ENDOSCOPY ??? US GUIDED BIOPSY PROSTATE ([place] ONLY) 02/08/2019 US Guided Transrectal Biopsy 02/08/2019 [facility] RAD ULTRASOUND SOCHx: Social History Socioeconomic History ??? Marital status: Spouse name: Not on file ??? Number of children: Not on file ??? Years of education: Not on file ??? Highest education level: Not on file Occupational History ??? Occupation: retired Social Needs ??? Financial resource strain: Not on file ??? Food insecurity: Worry: Not on file Inability: Not on file ??? Transportation needs: Medical: Not on file Non-medical: Not on file Tobacco Use ??? Smoking status: Never Smoker ??? Smokeless tobacco: Current User Types: Chew ??? Tobacco comment: 3 cans/ week. Substance and Sexual Activity ??? Alcohol use: Yes Alcohol/week: 0.0 - 0.6 oz Comment: rarely ??? Drug use: No ??? Sexual activity: Yes Partners: Female Lifestyle ??? Physical activity: Days per week: Not on file Minutes per session: Not on file ??? Stress: Not on file Relationships ??? Social connections: Talks on phone: Not on file Gets together: Not on file Attends anabaptist service: Not on file Active member of club or organization: Not on file Attends meetings of clubs or organizations: Not on file Relationship status: Not on file ??? Intimate partner violence: Fear of current or ex partner: Not on file Emotionally abused: Not on file Physically abused: Not on file Forced sexual activity: Not on file Other Topics Concern ??? Do You live alone? Not Asked ??? Tobacco in Home Not Asked Social History Narrative ??? Not on file FamHx: Negative for malignancies ROS: The patients mood is stable. The patient denies fevers, chills or sweats. No recent changes in vision or hearing. There is no chest pain, palpitations, shortness of breath, cough or difficulty breathing. No nausea or vomiting. No changes in bowel or bladder. No anorexia. No new back or bone pain. No new weakness / numbness. PE: Gen: well appearing male, NAD Skin: warm and dry, no lesions Musculoskeletal: symmetric without gait abnormalities Neurologic: no obvious abnormalities FREDI without nodules at the time of prostate biopsy, not repeated Imaging:NA Impression: #1 High risk prostate cancer, cT1c, sinan 4+4, PSA 8.1, BINH 25 (very concerned about sexual function) #2 Irritative lower urinary tract symptoms, stable, not terribly bothersome, likley related to polydipsia Plan/Recommendations: # Surgery vs RT, I will touch base after he meets with radiation oncology to review options. I had a very lengthy and thorough discussion with Ken Quiñonez Mike regarding the characteristics of his cancer and the risks, benefits, rationale, implications and alternatives of the various management options. I discouraged him from considering primary androgen deprivation therapy since it is not curative and is associated with multiple side effects, such as hot flashes, osteoporosis, decreased libido, erectile dysfunction, and a potentially higher risk of diabetes and heart disease. We spent the bulk of our time discussing three major options, which include radical prostatectomy, radiation therapy, and active surveillance with delayed curative intent. We also discussed focal therapies as he expressed interest. I explained that correction oncologic outcomes data are lacking for focal therapy but that considering his focal tumor easily identified on MRI, his cancer would be amenable to this. I offered to place a referral to a center doing focal jesi tments and recommended that if he is interested in this, it be done as part of a clinical trial. We discussed the rationale of radical prostatectomy performed via either a robotic or open technique. The concepts of the surgery are removal of the pelvic lymph nodes and prostate, with nerve-sparing as deemed appropriate. These have both diagnostic and therapeutic intent. When performed robotically it is through six small incisions and a 2.5 - 4 hour surgery associated with minimal blood loss, an overnight hospital stay, and 5-7 days of Cuadra catheterization. Major risks of the surgery are rare but do include bleeding, infection, adjacent organ injury, lymphocele, positive margins, severe pain and standard operative risks such as myocardial infarction, stroke, DVT, pneumonia, PE and even a 0.2% chance of . We also discussed urinary incontinence following surgery. Approximately 10-20% of men will have nearly complete control of their urination when the catheter is removed, the median time to recovery is approximately 3-4 months but can take up to 12-18 months. Based on national data, approximately 85-90% of men will have control good urinary control at 2 years (may require safety pad etc. but are generally happy with voiding). In regards to sexual function, I explained the median time to recovery of functional erections is 6-8 months but can take up to 18 months. At 18 months following surgery, approximately 75% of men with quality erections prior to surgery who undergo aggressive bilateral nerve-sparing will have functional erections with or without medical therapy. Following surgery the PSA is expected to remain undetectable but if it does rise there is the possibility of salvage curative radiation therapy, if deemed appropriate. We also discussed the rationale of radiation therapy, which can be delivered via brachytherapy, external beam radiation therapy, or proton beam therapy. There is an excellent track record of success but can be associated with potential side effects which include urinary urgency, frequency, urethralstricture as well as the potential for erectile dysfunction and rectal irritation or frequency of nik wel movements. I explained there is an approximately 2% chance of serious bladder or rectal toxicity as well as a very low risk of inducing a secondary malignancy. The potential downside of radiationis the lack of complete pathologic review and lack of reliable salvage curative options. Active surveillance was described as a reasonable management strategy which has been associated with excellent short and intermediate term cancer control. The concept is to closely follow the cancer and intervene as needed at any meaningful sign of increased tumor volume or increased grade. Severalstudies have suggested delayed treatment has been associated with similar oncologic outcomes to immediate treatment in properly selected patients. Approximately 5% of patients per year require an intervention and discontinue active surveillance. I explained there is consistent data showing a 98% cancer-specific survival at 10 years following the diagnosis and in Very Low Risk patients there is less than 1% risk of progression to metastatic disease at 15 years but intermediate manager data beyond this is not currently available. He understands there is a low but real chance of missing his window of curative opportunity. Lastly we discussed the rationale of a re-biopsy of his prostate if he is interested in this approach since approximately 20-30% of patients will have higher grade or higher volume disease which exclude them from considering active surveillance. At the completion of our discussion, multiple questions were answered to the best of my ability. Heappears to be very well informed about his cancer as well as the options. I explained to him there is no cordoba in making a decision, and the most important thing is that he feels comfortable and educated regarding his options and ultimate choice. I answered all the patient's questions to the best of my ability and he is satisfied with the plan as outlined above. I will be in touch with him regarding the above details and he knows that he can contact me at any time with any questions or concerns. 45 minutes spent in counseling and coordination of care documented in this encounter Plan of Treatment Upcoming Encounters Date Type Department Care Team (Late st Contact Info) Description 12/15/2024 11:30 AM EDT Office [place] [address] Charline Ziegler MD [facility] [place] [address] documented as of this encounter Visit Diagnoses Diagnosis Malignant neoplasm of prostate documented in this encounter Care Teams Resident Care Director Relationship Specialty Start Date End Date Reji Adams MD [facility] GENERAL [place] [address] PCP - General General Internal Medicine 07/13/15 documented as of this encounter
--- OUTSIDE RECORDS SUMMARY | 2024-07-09 11:12 | XMS_ITS | Encounter Summary ---
Author Organization [facility] Address [facility] [place] [address] Care Team Providers Care Pcat Instructor Name Role Phone Reji Adams MD Primary Care Provider [phone] Reason for Visit * Reason Comments Other spot on nose Encounter Details Date Type Department Care Team (Late st Contact Info) Description 04/02/2019 2:30 PM EDT Office Visit Internal Medicine at [address] [address] [place] MD [facility] GENERAL [place] [address] Inflammatory papule Social History Tobacco Use Types Packs/Day Years [...] Sign Reading Time Taken Comments Blood Pressure 115/71 04/02/2019 2:30 PM EDT Pulse 66 04/02/2019 2:30 PM EDT Temperature 36.8 ??C (98.2 ??F) 04/02/2019 2:30 PM ED T Respiratory Rate 18 04/02/2019 2:30 PM EDT Oxygen Saturation 100% 04/02/2019 2:30 PM EDT Inhaled Oxygen Concentration - - Weight 91.2 kg (201 lb) 04/02/2019 2:30 PM EDT Height - - Body Mass Index 28.46 03/11/2019 9:54 AM EDT documented in this encounter Progress Notes * [place] - 04/02/2019 2:30 PM EDT Images from the original note were not included. Subjective: Patient ID: Ken Mckeon is a 73 y.o. male Presents today for acute visit for: growth on face PMH: prostate cancer, anxiety, depression, cervical radiculopathy, OA, jeff's thyroidits Has a spot on L side of nose making him nervous. Wonders if it is impetigo. Tried putting some cortisone cream and hasn't helped. Had a small white pustule at first but think scrubbed off with moist wash cloth. Feels itchy, doesn't burn. Can feel bump there. Has never had anything like this before. No bug bites. Started noticing the bump 2 days ago. Seems about the same size since initially noticed. Review of Systems No fevers/chills. Objective: There were no vitals taken for this visit. BP Readings from Last 3 Encounters: 03/11/19 114/74 03/01/19 108/66 02/25/19 115/72 Wt Readings from Last 3 Encounters: 03/11/19 91.4 kg (201 lb 9.6 oz) 03/01/19 91.6 kg (202 lb) 02/25/19 92 kg (202 lb 13.2 oz) Physical Exam Skin: Inflamed red papule with small central pustule as pictured below. Assessment and Plan: Mr. Mckeon is a 73 year old man who presents due to concern about 2 days left nostril redness. Appears to be a small inflamed papule and have reassured patient. Advised him not to pinch or scratch at lesion and to apply warm moist wash cloth and lesion should resolve with time. 1. Inflammatory papule - Reassured patient. - Advised pt to apply warm moist wash cloth. - An After Visit Summary was printed and given to the patient. - Ken was given the necessary information on his condition and instructed to return to clinic if symptoms continue or worsen. * Reji Adams MD - 04/02/2019 2:30 PM EDT The case was discussed at the time of the visit or immediately after the visit. The assessment and plan were formulated in discussion with me and I agree with them as documented. I have reviewed the history, physical exam, assessment and plan with the resident. Major issues discussed today: Here for spot on L side of nose that was inflamed. Had small pustule but rubbed off with wash cloth. Plan: Inflammatory papule -warm compresses -reassured will improve documented in this encounter Plan of Treatment Upcoming Encounters Date Type Department Care Team (Late st Contact Info) Description 12/15/2024 11:30 AM EDT Office [place] [address] Charline Ziegler MD [facility] [place] [address] documented as of this encounter Visit Diagnoses Diagnosis Inflammatory papule Other specified disorder of skin documented in this encounter Care Teams Pcat Instructor Relationship Specialty Start Date End Date Reji Adams MD [facility] [place] [address] PCP - General General Internal Medicine 07/13/15 documented as of this encounter
--- OUTSIDE RECORDS SUMMARY | 2024-07-09 11:12 | XMS_ITS | Encounter Summary ---
Author Organization [facility] Address [facility] [place] [address] Care Team Providers Care Director Of Housing And Energy Services Name Role Phone Reji Adams MD Primary Care Provider [phone] Encounter Details Date Type Department Care Team (Late st Contact Info) Description 06/23/2019 Transcribe [place] [address] Saeed Rocha MD [facility] [address] [place] [address] Acquired absence of organ, genital organs Social [...] 11:30 AM EDT Office [place] [address] Charline Ziegler MD [facility] [place] [address] documented as of this encounter Visit Diagnoses Diagnosis Acquired absence of organ, genital organs documented in this encounter Care Teams Director Of Housing And Energy Services Relationship Specialty Start Date End Date Reji Adams MD [facility] [place] [address] PCP - General General Internal Medicine 07/13/15 documented as of this encounter
--- OUTSIDE RECORDS SUMMARY | 2024-07-09 11:12 | XMS_ITS | Encounter Summary ---
Author Organization [facility] [place] [address] Care Team Providers Care Verse Writer Name Role Phone Reji Adams MD Primary Care Provider [phone] Reason for Visit * Reason Onset Date Comments Medication Refill 08/12/2019 Encounter Details Date Type Department Care Team (Late st Contact Info) Description 08/12/2019 Refill Internal Medicine at [address] [address] Reji Adams MD [facility] GENERAL [place] [address] Social History Tobacco Use Types Packs/Day Years [...] EDT Office [place] [address] Charline Ziegler MD [facility] [place] [address] documented as of this encounter Visit Diagnoses Not on filedocumented in this encounter Additional Health Concerns Infection Onset Date Last Indicated Resolved Time Rule Out C. difficile 03/08/2020 03/08/20202019 11:23 AM EDT documented as of this encounter Care Teams Verse Writer Relationship Specialty Start Date End Date Reji Adams MD [facility] GENER[facility] [place] [address] PCP - General General Internal Medicine 07/13/15 documented as of this encounter
--- OUTSIDE RECORDS SUMMARY | 2024-07-09 11:12 | XMS_ITS | Encounter Summary ---
Author Organization [facility] [place] [address] Care Team Providers Care Metal Tester Name Role Phone Reji Adams MD Primary Care Provider [phone] Reason for Visit * Reason Onset Date Comments Medication Refill 08/15/2019 Encounter Details Date Type Department Care Team (Late st Contact Info) Description 08/15/2019 Refill Internal Medicine at [address] [address] Reji Adams MD [facility] [place] [address] Social History Tobacco Use Types Packs/Day Years [...] 11:30 AM EDT Office [place] [address] Charline Ziegler MD [facility] [place] [address] documented as of this encounter Visit Diagnoses Not on filedocumented in this encounter Additional Health Concerns Infection Onset Date Last Indicated Resolved Time Rule Out C. difficile 03/08/2020 03/08/20202019 11:23 AM EDT documented as of this encounter Care Teams Metal Tester Relationship Specialty Start Date End Date Reji Adams MD [facility] [place] [address] PCP - General General Internal Medicine 07/13/15 documented as of this encounter
--- OUTSIDE RECORDS SUMMARY | 2024-07-09 11:12 | XMS_ITS | Encounter Summary ---
Author Organization [facility] Address [facility] [place] [address] Care Team Providers Care Segment Producer Name Role Phone Reji Adams MD Primary Care Provider [phone] Encounter Details Date Type Department Care Team (Latest Contact Info) Description 06/23/2019 Transcribe [place] [address] Rigo Rocha MD [address] [place] [id number] Status post prostatectomy (Primary Dx); Urinary incontinence, unspecified type; Malignant neoplasm of prostate Social History Tobacco [...] 11:30 AM EDT Office [place] [address] Charline Ziegler MD [facility] [place] [address] documented as of this encounter Results * PSA (Ultrasensitive) (06/23/2019 12:09 PM EST) Prostate Specific Antigen (Ultrasensitiv e) 0.02 0.00 - 4.00 ng/mL [facility] Blood specimen (specimen) 06/23/2019 12:09 PM EST 06/23/2019 12:18 PM EST Narrative Resulting Agency Comment Spec In Lab Rigo Rocha MD CHEMISTRY ORDERABLES [facility] [place] [address] documented in this encounter Visit Diagnoses Diagnosis Status post prostatectomy- Primary Other postprocedural status Urinary incontinence, unspecified type Malignant neoplasm of prostate documented in this encounter Care Teams Segment Producer Relationship Specialty Start Date End Date Reji Adams MD [facility] [place] [address] PCP - General General Internal Medicine 07/13/15 documented as of this encounter
--- OUTSIDE RECORDS SUMMARY | 2024-07-09 11:12 | XMS_ITS | Encounter Summary ---
Author Organization [facility] [place] [address] Care Team Providers Care Airborne Sensor Specialist Name Role Phone Reji Adams MD Primary Care Provider [phone] Reason for Visit * Diagnostic Test (Routine) - Closed Specialty Diagnoses / Procedures Referred By Contsushma arizmendi Referred To Contact Radiology Diagnoses Malignant neoplasm of prostate Procedures NM Whole Body Bone Scan Tobias Mcginnis MD [facility] [address] [place] [address] Referral ID Status Reason Start Date Expiration Date V isits Requested Visits Authorized [id number] Closed Specialty Service Requested 02/11/2019 02/11/2020 1 1 Encounter Details Date Type Department Care Team (Latest Contact Info) Description 02/22/2019 2:24 PM EDT - 02/22/2019 11:59 PM EDT Hospital Encounter [place] [address] Tobias Mcginnis MD [facility] [place] [address] Discharge Disposition: Home Social History [...] 81 mg by mouth daily. 03/17/2023 Saw Garrett 500 mg capsule Take 500 mg by mouth daily. 03/14/2020 documented as of this encounter Plan of Treatment Upcoming Encounters Date Type Department Care Team (Late st Contact Info) Description 12/15/2024 11:30 AM EDT Office [place] [address] Charline Ziegler MD [facility] [place] [address] documented as of this encounter Procedures Procedure [...] contact the number below. Electronically signed by: ROBERT Lira [facility]([phone]), at 02/22/2019 3:31 PM Tobias Mcginnis MD IMG NM ORDERABLES documented in this encounter Visit Diagnoses Not on filedocumented in this encounter Care Teams Airborne Sensor Specialist Relationship Specialty Start Date End Date Reji Adams MD [facility] [place] [address] PCP - General General Internal Medicine 07/13/15 documented as of this encounter
--- OUTSIDE RECORDS SUMMARY | 2024-07-09 11:12 | XMS_ITS | Encounter Summary ---
Author Organization [facility] [place] [address] Care Team Providers Care Writer Editor Name Role Phone Reji Adams MD Primary Care Provider [phone] Reason for Visit * Reason Onset Date Comments Medication Problem 12/22/2019 Encounter Details Date Type Department Care Team (Late st Contact Info) Description 12/22/2019 Telephone Internal Medicine at [address] [address] Tiffanie Lew Medication Problem Social History Tobacco Use Types [...] encounter Miscellaneous Notes * Telephone Encounter - Tiffanie Lew - 12/22/2019 10:02 AM EDT Pharmacy or caller: Patient Phone Number: Medication: Alprazolam Message: Patient stated he had this prescription sent to the wrong pharmacy. He said he already picked it up at [facility], and realized when he got home that the brand they carry does not agree with him. He is wondering if this can be sent to the [facility] in [place], [place] instead. Did you contact your pharmacy?: Yes documented in this encounter Plan of Treatment Upcoming Encounters Date Type Department Care Team (Late st Contact Info) Description 12/15/2024 11:30 AM EDT Office Visit [place] [address] Charline Ziegler MD [facility] [place] [address] documented as of this encounter Visit Diagnoses Not on filedocumented in this encounter Care Teams Writer Editor Relationship Specialty Start Date End Date Reji Adams MD [facility] [place] [address] PCP - General General Internal Medicine 07/13/15 documented as of this encounter
--- OUTSIDE RECORDS SUMMARY | 2024-07-09 11:12 | XMS_ITS | Encounter Summary ---
Author Organization [facility]ly [facility] [place] [address] Care Team Providers Care General Hardware Salesperson Name Role Phone Reji Adams MD Primary Care Provider Encounter Details Date Type Department Care Team (Late st Contact Info) Description 04/08/2019 Telephone [place] [phone] Aminata Glasgow Social History Tobacco Use Types Packs/Day Years [...] Miscellaneous Notes * Telephone Encounter - Aminata Glasgow - 04/08/2019 10:13 AM EDT Patient called to cancel all appts. In rad./onc. He is going elsewhere. documented in this encounter Plan of Treatment Upcoming Encounters Date Type Department Care Team (Late st Contact Info) Description 12/15/2024 11:30 AM EDT Office Visit [place] [phone] Charline Ziegler MD [facility] [place] [address] documented as of this encounter Visit Diagnoses Not on filedocumented in this encounter Care Teams General Hardware Salesperson Relationship Specialty Start Date End Date Reji Adams MD [facility] [address] PCP - General General Internal Medicine 07/13/15 documented as of this encounter
--- OUTSIDE RECORDS SUMMARY | 2024-07-09 11:12 | XMS_ITS | Encounter Summary ---
Author Organization [facility] Address [facility] [place] [address] Care Team Providers Care Methods Time Analyst Name Role Phone Reji Adams MD Primary Care Provider [phone] Encounter Details Date Type Department Care Team (Late st Contact Info) Description 03/10/2019 External Results [place] [address] Provider, Scanning Social History Tobacco Use Types Packs/Day Years [...] 11:30 AM EDT Office [place] [phone] Charline Ziegler MD [facility] GASTROENTEROLOGY [place], [place] [id number] documented as of this encounter Procedures Procedure Name Priority Date/Time Associated Diagnosis Comments SURGICAL PATHOLOGY SCAN Routine 03/10/2019 documented in this encounter Results * Scan Doc: Surgical Pathology (03/10/2019) Historical Provider MEDIA MGR SCAN EX T ORDR/RSLT documented in this encounter Visit Diagnoses Not on filedocumented in this encounter Care Teams Methods Time Analyst Relationship Specialty Start Date End Date Reji Adams MD [facility] [place] [address] PCP - General General Internal Medicine 07/13/15 documented as of this encounter
--- OUTSIDE RECORDS SUMMARY | 2024-07-09 11:12 | XMS_ITS | Encounter Summary ---
Author Organization [facility] [place] [address] Care Team Providers Care Plaster Mechanic Name Role Phone Reji Adams MD Primary Care Provider [phone] Reason for Visit * Reason Onset Date Comments Other 03/24/2019 Encounter Details Date Type Department Care Team (Late st Contact Info) Description 03/24/2019 Telephone Internal Medicine at [address] [address] Ace Collado Other Social History Tobacco Use Types Packs/Day [...] Telephone Encounter - Dafne Hickey RN - 03/24/2019 4:40 PM EDT Phoned patient back, he is having a hard time understanding next steps of care, wanted to ask if Dr. Adams would recommend a referral to an oncologist, requesting Dr. Adams give him a call back to help him work his way through it * Telephone Encounter - Tobias Ace Olson - 03/24/2019 4:09 PM EDT Message: Patient called stating that he would like Reji Adams MD to call him as soon as possible patient states its urgent that he talks to him about his referral. Patient express this is urgent but not emergency. Please call as soon as possible. Ask caller their first and last name and relationship to the patient: patient Best time to call back: any Ok to leave a message: y Ok to send [facility] message: n Offered Appointment: n MA/Nurse/Business English Instructor contacted via: Message: y Call: n Pager: n documented in this encounter Plan of Treatment Upcoming Encounters Date Type Department Care Team (Late st Contact Info) Description 12/15/2024 11:30 AM EDT Office [place] [address] Charline Ziegler MD [facility] [place] [address] documented as of this encounter Visit Diagnoses Not on filedocumented in this encounter Care Teams Plaster Mechanic Relationship Specialty Start Date End Date Reji Adams MD [facility] [place] [address] PCP - General General Internal Medicine 07/13/15 documented as of this encounter
--- OUTSIDE RECORDS SUMMARY | 2024-07-09 11:12 | XMS_ITS | Encounter Summary ---
Author Organization [facility] [place] [address] Care Team Providers Care Java Portal Developer Name Role Phone Reji Adams MD Primary Care Provider [phone] Reason for Visit * Reason Onset Date Comments Medication Refill 09/28/2019 Encounter Details Date Type Department Care Team (Late st Contact Info) Description 09/28/2019 Refill Internal Medicine at [address] [address] Reji Adams MD [facility] GENER[facility] [place] [address] Social History Tobacco Use Types Packs/Day Years [...] AM EDT Office Visit [place] [address] Charline Ziegler MD [facility] [place] [address] documented as of this encounter Visit Diagnoses Not on filedocumented in this encounter Care Teams Java Portal Developer Relationship Specialty Start Date End Date Reji Adams MD [facility] [place] [address] PCP - General General Internal Medicine 07/13/15 documented as of this encounter
--- OUTSIDE RECORDS SUMMARY | 2024-07-09 11:12 | XMS_ITS | Encounter Summary ---
Author Organization [facility] [place] [address] Care Team Providers Care Director Of Fundraising Name Role Phone Reji Adams MD Primary Care Provider [phone] Encounter Details Date Type Department Care Team (Latest Contact Info) Description 06/23/2019 12:15 PM EST Laboratory Appointment Lab [address] [place] [phone] Status post prostatectomy; Urinary incontinence, unspecified type; Malignant neoplasm of [...] 11:30 AM EDT Office Visit [place] [address] Charline Ziegler MD [facility] [place] [address] documented as of this encounter Procedures Procedure Name Priority Date/Time Associated Diagnosis Comments HC VENIPUNCTURE Routine 06/23/2019 12:09 PM EST Status post prostatectomy Urinary incontinence, unspecified type Malignant neoplasm of prostate documented in this encounter Results * PSA (Ultrasensitive) (06/23/2019 12:09 PM EST) Prostate Specific Antigen (Ultrasensitiv e) 0.02 0.00 - 4.00 ng/mL [facility] Blood specimen (specimen) 06/23/2019 12:09 PM EST 06/23/2019 12:18 PM EST Narrative Resulting Agency Comment Spec In Lab Rigo Rocha MD CHEMISTRY ORDERABLES [facility] [place] [address] documented in this encounter Visit Diagnoses Diagnosis Status post prostatectomy Other postprocedural status Urinary incontinence, unspecified type Malignant neoplasm of prostate documented in this encounter Care Teams Director Of Fundraising Relationship Specialty Start Date End Date Reji Adams MD [facility] [place] [address] PCP - General General Internal Medicine 07/13/15 documented as of this encounter
--- OUTSIDE RECORDS SUMMARY | 2024-07-09 11:12 | XMS_ITS | Encounter Summary ---
Author Organization [facility] [place] [address] Care Team Providers Care Vice President Client Services Name Role Phone Reji Adams MD Primary Care Provider [phone] Encounter Details Date Type Department Care Team (Late st Contact Info) Description 03/30/2019 Telephone [place] [phone] Nelida Rasmussen Social History Tobacco Use Types Packs/Day Years [...] encounter Miscellaneous Notes * Telephone Encounter - Nelida Rasmussen - 03/30/2019 8:45 AM EDT I called and spoke with Mr. Mckeon - he is still contemplating whether or not he will be moving forward with Surgery or with Seed implant. He will call us once he is able to come to a decision within the next few days. documented in this encounter Plan of Treatment Upcoming Encounters Date Type Department Care Team (Late st Contact Info) Description 12/15/2024 11:30 AM EDT Office Visit [place] [address] Charline Ziegler MD [facility] [place] [address] documented as of this encounter Visit Diagnoses Not on filedocumented in this encounter Care Teams Vice President Client Services Relationship Specialty Start Date End Date Reji Adams MD [facility] [place] [address] PCP - General General Internal Medicine 07/13/15 documented as of this encounter
--- OUTSIDE RECORDS SUMMARY | 2024-07-09 11:12 | XMS_ITS | Encounter Summary ---
Author Organization [facility] Address [facility] [place] [address] Care Team Providers Care Under Cutter Name Role Phone Reji Adams MD Primary Care Provider [phone] Reason for Visit * Reason Onset Date Comments Prostate Cancer 03/12/2019 Encounter Details Date Type Department Care Team (Late st Contact Info) Description 03/12/2019 [place] [address] [place] [address] Urinary tract infection without hematuria, site unspecified; Prostate cancer Social History Tobacco Use Types Packs/Day Years [...] AM EDT documented as of this encounter Patient Instructions * Patient Instructions* Tobias Mcginnis MD - 03/12/2019 2:44 PM EDT Prostatectomy Patient Instructions Instructions Prior to Surgery Please stop taking any over the counter supplements one week before surgery. If you are on any blood thinners such as: Coumadin, Plavix, Aspirin, or Xarelto PLEASE check with the Urology Clinic if you did not receive any instructions on discontinuing them prior to surgery. Day Prior to Surgery Please shower 24 hours before AND the night before surgery. Please use a Chlorhexidene based antiseptic soap such as Hibiclens. You can buy Hibiclens over the counter at your pharmacy without a prescription or you can obtain it from the [facility] Same day program on the day of your preoperative visit. Bowel Preparation ?? Purchase one Fleets enema and take it the evening before surgery. ?? Please take only clear liquids by mouth from noon the day before surgery. ?? Continue to drink plenty of clear liquids to remain well hydrated for the remainder of the day and evening ?? Please take nothing by mouth from 2 hours before the time you have been told to report to the hospital. If you have any questions please call the [facility] at or documented in this encounter Progress Notes * Tobias Mcginnis MD - 03/12/2019 2:44 PM EDT I called to see if he had made a decision regarding treatment. He is still trying to decide but he is anxious about treatment being pushed out and would like to hold an OR date for prostatectomy. I will hold 04/23/19 for now. I will reach out in a few weeks if I have not heard from him sooner to confirm. documented in this encounter Plan of Treatment Upcoming Encounters Date Type Department Care Team (Late st Contact Info) Description 12/15/2024 11:30 AM EDT Office [place] [address] Charline Ziegler MD [facility] [place] [address] documented as of this encounter Visit Diagnoses Diagnosis Urinary tract infection without hematuria, site unspecified Prostate cancer Malignant neoplasm of prostate documented in this encounter Care Teams Under Cutter Relationship Specialty Start Date End Date Reji Adams MD [facility] [place] [address] PCP - General General Internal Medicine 07/13/15 documented as of this encounter
--- OUTSIDE RECORDS SUMMARY | 2024-07-09 11:12 | XMS_ITS | Encounter Summary ---
Author Organization [facility] [place] [address] Care Team Providers Care Selvage Machine Operator Name Role Phone Reji Adams MD Primary Care Provider [phone] Reason for Visit * Reason Onset Date Comments Medication Refill 12/11/2019 Encounter Details Date Type Department Care Team (Late st Contact Info) Description 12/11/2019 Refill Internal Medicine at [address] [address] Reji Adams MD [facility] [place] [address] Anxiety Social History Tobacco Use Types Packs/Day [...] 11:30 AM EDT Office Visit Gastroenterology at [facility] [place] [address] Charline Ziegler MD [facility] [place] [address] documented as of this encounter Visit Diagnoses Diagnosis Anxiety Anxiety state, unspecified documented in this encounter Care Teams Selvage Machine Operator Relationship Specialty Start Date End Date Reji Adams MD [facility] [place] [address] PCP - General General Internal Medicine 07/13/15 documented as of this encounter
--- OUTSIDE RECORDS SUMMARY | 2024-07-09 11:12 | XMS_ITS | Encounter Summary ---
Author Organization [facility] Address [facility] [place] [address] Care Team Providers Care Oil Treater Name Role Phone Reji Adams MD Primary Care Provider [phone] Encounter Details Date Type Department Care Team (Late st Contact Info) Description 02/12/2019 Tele[place] [phone] Tobias Mcginnis MD [facility] [place] [address] Social History Tobacco Use Types Packs/Day Years [...] Miscellaneous Notes * Telephone Encounter - Amrita Das - 02/12/2019 8:39 AM EDT LM for pt to schedule bone scan and ELECTROPHYSIOLOGIST new either in 5B or 3K (whichever sooner) with Dr. Mcginnis.Also, pt to expect a call from radiation oncology (a referral was placed) documented in this encounter Plan of Treatment Upcoming Encounters Date Type Department Care Team (Late st Contact Info) Description 12/15/2024 11:30 AM EDT Office Visit [place] [address] Charline Ziegler MD [facility] [place] [place] [address] documented as of this encounter Visit Diagnoses Not on filedocumented in this encounter Care Teams Oil Treater Relationship Specialty Start Date End Date Reji Adams MD [facility] [place] [address] PCP - General General Internal Medicine 07/13/15 documented as of this encounter
--- OUTSIDE RECORDS SUMMARY | 2024-07-09 11:12 | XMS_ITS | Encounter Summary ---
Author Organization [facility] Address [facility] [place] [address] Care Team Providers Care Campus Wellness Coordinator Name Role Phone Reji Adams MD Primary Care Provider [phone] Reason for Visit * Consultation (Routine) - Closed Specialty Diagnoses / Procedures Referred By Duglas arizmendi Referred To Contact Radiation Oncology Diagnoses Malignant neoplasm of prostate Tobias Mcginnis MD [facility] [place] [address] [facility] [place] [address] Referral ID Status Reason Start Date Expiration Date V isits Requested Visits Authorized [id number] Closed Consult, Test & Treat 02/11/2019 02/11/2020 1 1 Encounter Details Date Type Department Care Team (Late st Contact Info) Description 03/01/2019 3:00 PM EDT Office Visit [place] [address] Rayo Davis MD Malignant neoplasm of prostate [...] Sign Reading Time Taken Comments Blood Pressure 108/66 03/01/2019 2:35 PM EDT Pulse 69 03/01/2019 2:35 PM EDT Temperature 36.4 ??C (97.5 ??F) 03/01/2019 2:35 PM ED T Respiratory Rate - - Oxygen Saturation 99% 03/01/2019 2:35 PM EDT Inhaled Oxygen Concentration - - Weight 91.6 kg (202 lb) 03/01/2019 2:35 PM EDT Height - - Body Mass Index 28.6 02/25/2019 10:24 AM EDT documented in this encounter Patient Instructions * Patient Instructions* Rayo Davis MD - 03/01/2019 3:00 PM EDT With your prostate cancer having aggressive features, including the Sinan Score of 4+4=8 and its position adjacent to the prostate capsule, you are well- advised to proceed with radiation therapy orwith surgery at this time. Surgical resection would carry some risk of disease extension beyond theprostate, which would incline in that circumstance towards further treatment with salvage radiation therapy. Surgery would also have a higher risk of erectile dysfunction (by 10-20%) and also a risk of spotting or leaking (a risk which does not arise as a rule with radiation treatments). On balance, surgery and radiation therapy have equivalent likelihoods of disease control at 20-25 years after treatment. Looked at this way, you cannot make a wrong decision. If you opt for RT, then we'd want to also treat you with androgen deprivation therapy (ADT), for atleast two months before and two months during your radiation treatments. Side effects of the hormones are primarily male menopause, and improve once the hormones are completed. Once taking the hormo ryder, you might want to extend them for up to two years after your radiation treatments, but this decision could be made at a later point in time. Side effects from radiation therapy in the short-term tend to be relatively easily manageable, and in the long-term tend to be low-risk, other than the risk of erectile dysfunction, which runs on theorder of 40%, perhaps slightly higher (50%) with the ADT. If you opt for RT, then another possible option would be 5-weeks of external beam radiation therapy(EBRT) along with a brachytherapy seed implant, rather than 9-weeks of EBRT alone. The advantage ofthe seed implant would be a known higher risk of PSA control in the 6-10 year range, with a chance of improved clinical outcomes in the 10-15 year range. However, this must be balanced against increased urinary symptoms and fatigue the first few weeks after the implant, and a slight risk of urethral stricture ( on the order of 5%) within 5 years after the implant. Also, another benefit of the implant would be that with the implant the recommendation for ADT would be cut from two years down to one year, because of the clinical trial data that we have. Much to think about. Please take some time to consider options. If we haven't heard from you in 2-3weeks or so, we'll give you a call to check if we may be of help. Please call with any questions or concerns at any time. documented in this encounter Progress Notes * Abbey Benson RN - 03/01/2019 3:00 PM EDT RADIATION ONCOLOGY NURSING INITIAL NURSING ASSESSMENT IDENTIFICATION: Ken Mckeon is a 73 y.o. year-old male with prostate cancer PRESENTING SYMPTOMS/CHIEF COMPLAINT: elevated PSA and biopsies REVIEW OF SYSTEMS: Review of Systems Constitutional: Negative. HENT: Positive for hearing loss (Left ear). Eyes: Positive for eye problems (Dry eyes, cataract lenses both eyes). Respiratory: Negative. Cardiovascular: Negative. Gastrointestinal: Positive for constipation and diarrhea. Endocrine: Negative. Genitourinary: Positive for frequency. Musculoskeletal: Baseline arthritic pain in joints Skin: Negative. Neurological: Positive for numbness (No feeling in right arm for 4 years). Hematological: Negative. Psychiatric/Behavioral: Positive for depression and sleep disturbance. The patient is nervous/anxious. IN THE PAST 12 MONTHS HAVE YOU: Fallen more than one time? No Injured yourself as result of the fall? No Experienced difficulty with walking/problems with balance? No Do you use any assistive devices? No Any history of collagen vascular diseases:No Any Implanted Devices/Hardware: Yes, right knee hardware and screws in neck/shoulder area If yes please put alert in ARIA patient summary Prior Radiotherapy: No Prior Chemotherapy: No Prior Hormone Therapy: No LEARNING ASSESSMENT REVIEWED: Yes ADVANCED DIRECTIVE: No PAIN ASSESSMENT: [4] out of 10 - Baseline arthritic pain SOCIAL ASSESSMENT: See ED social assessment information entered. Support Systems: Partner, Xena; Daughter, Kristen Barriers to treatment: About an hour away Referrals/Interventions: None at this time RADIATION SPECIFIC TEACHING: x NCI Radiation Therapy and You Site specific teaching : Other: PLAN: Per Dr. Davis * Rayo Davis MD - 03/01/2019 3:00 PM EDT Identification Ken Mckeon is a 73 y.o. gentleman with prostate cancer. He is being seen at the request of Dr. Mcginnis for consideration of the role of radiation therapy in his [...] M65.342 ??? S/P rotator cuff repair Z98.890 History of Present Illness PSA History: 06/2015 - 3.4 02/2017 - 6.19 03/2017 - TRUS biopsy negative 09/2017 - 6.62 04/2018 - 6.59 10/2018 - 8.11 (12% free) The further elevation in PSA spurred detailed work-up with MRI and repeat biopsy. MRI 12/16/18: COMPARISON: None ?? FINDINGS: Prostate dimensions: 5.9 x 4.2 x 4.1cm. Estimated prostate volume: 46.38cc (X x Y x Z x 0.52) PSA density: 0.17 (PSA/prostate volume >0.15 susp, 0.25 highly susp) ?? Peripheral zone: Lesion 1. Anterior peripheral zone at the base and mid gland T2: Circumscribed, homogenous moderately hypointense mass 1.5 x 0.9 cm axially, 1.2 cm craniocaudally. Minimal bulging of the prostate contour without gross extra prostatic extension. PI-RADs: 5. DWI: Focal markedly hypointense on ADC and markedly hyperintense on high b-value DWI; >1.5cm in greatest dimension. PI-RADs: 5. DCE-MRI: (+) focal early enhancement which corresponds to the suspicious finding on T2WI and/or DWI. ??Combined PI-RADs: 5. ?? Transition zone: No focal lesions T2: Typical encapsulated and homogenous circumscribed nodules. PI-RADs: 1. DWI: No abnormality on ADC and high b-value DWI. PI-RADs: 1. DCE-MRI: (-) No early arterial enhancement.. ?? Combined PI-RADs: 1. ?? Extraprostatic disease: ?? Seminal vesicle involvement:No Lymphadenopathy:No Sphincter involvement:No Bladder involvement:No Osseous metastases: No . Extraprostatic extension: No ?? Other findings: None. ?? IMPRESSION ?? Lesion 1 PZ: PI-RADS 5. Clinically significant cancer is highly likely to be present. T2 location: axial series 15, image 19; sagittal series 14, image 24. ?? Pathology 02/08/19 DIAGNOSIS Prostate needle core biopsies: A - Right Lateral Base: ??- ??Benign prostatic tissue. B - Right Lateral Mid: ??- ??Benign prostatic tissue. C - Right Lateral [place]: ??- ??Benign prostatic tissue. D - Right Base: ??- ??Benign prostatic tissue. E - Right Mid: ??- ??Benign prostatic tissue. F - Right [place]: ??- ??Benign prostatic tissue. G - Left Lateral Base: ??- ??Benign prostatic tissue. H - Left Lateral Mid: ??- ??Benign prostatic tissue. I - Left Lateral [place]: ??- ??Benign prostatic tissue. J - Left Base: ??- ??Benign prostatic tissue. K - Left Mid: ??- ??Benign prostatic tissue. L - Left [place]: ??- ??Benign prostatic tissue. M - bx w/ fusion: ??- ??Prostatic adenocarcinoma, ??Grade Group 4 ??(Sinan score 4+4=8), ? involving 3 of 3 cores (50%, 40%, and 20%, respectively). ??- Cribriform pattern 4 is present. ROS Prostate IPSS and BINH(Pt Entered): Today's answers and scores Prostate Scores and Responses 03/01/2019 Confidence, level - past 6 months Very High Penetration - past 6 months Almost always or always Penetration, maintain - past 6 months Almost always or always Erection, maintain - past 6 months Not difficult Sexual satisfaction - past 6 months Almost always or always Sexual Health in Men 25 Incomplete emptying Less than 1 time in 5 Frequency Less than 1 time in 5 Intermittency Not at all Urgency Not at all Weak Stream Less than 1 time in 5 Straining Less than 1 time in 5 Nocturia None Quality of life Delighted Total IPSS Score 4 ( MILD LUTS) Not using PDE-5 inhibitor. However, notes les functionality since the recent biopsy. He has been tracking his erections since the biopsy and notes 10 erections in the past 25 days. Denies dysuria. No hematuria. Bowels are typically 1-2 a day, not constipated, but at times firm, no diarrhea, no blood LA. EPIC-PC Responses 03/01/2019 Urinary Incontinence Symptom Score 0 Urinary Irritation/Obstructive Symptom Score 1 Bowel Symptom Score 1 Vitality/Hormonal Symptom Score 2 Overall Prostate Cancer QOL Score 4 Urinary function problem No Problem Urinary control Total control # of pads used per day None Urinary dripping/leakage problem No problem Pain or burning with urination No problem Weak urine stream/incomplete bladder emptying Very small problem Need to urinate frequently No problem Rectal pain or urgency of bowel movements No problem Increased frequency of your bowel movements No problem Overall problems with your bowel movements Very small problem Bloody stools No problem Ability to reach orgasm Very good Quality of your erections Firm enough for intercourse Problem with sexual function or lack of it No problem Hot flashes or breast tenderness/enlargement No problem Feeling depressed Small problem Lack of energy No problem Review of Systems otherwise unremarkable. Please see Nurse's Note for details. Prior history of radiation therapy: None Current Outpatient Medications on File Prior to Visit Medication Sig Dispense Refill ??? ALPRAZolam (XANAX) 0.25 mg Tablet Take 1 tablet by mouth 3 times daily as needed for Anxiety. 90 tablet 0 ??? BORON ORAL Take by mouth daily. ??? pravastatin (PRAVACHOL) 20 mg Tablet Take 1 [...] 1 tablet by mouth daily. ??? [place] 500 mg capsule Take 500 mg by [...] by Ximena Gu MD at [facility] ENDOSCOPY ??? PRO LIGATE/STRIP LONG SAPH VEIN BELW SEP-FEM JUNC 06/02/2012 LIGATION\DIV\STRIP GREATER SAPHENOUS VEIN performed by BEATRICE RODRÍGUEZ at [facility] MAIN OR ??? PRO PHLEB VEINS - EXTREM - TO 20 06/02/2012 STAB PHLEBECTOMY KARLI VEINS, EXTREMITY 10-20 INCISIONS-SANTI performed by BEATRICE RODRÍGUEZ at [facility] MAIN OR ??? PRO UPPER GI ENDOSCOPY, BIOPSY N/A 09/02/2017 EGD WITH BIOPSY (WRVU 2.49) performed by Rahul Escobar MD at [facility] ENDOSCOPY ??? US GUIDED BIOPSY PROSTATE ([place] ONLY) 02/08/2019 US Guided Transrectal Biopsy 02/08/2019 [facility] RAD ULTRASOUND Family History Problem Relation Age of Onset ??? Cancer Mother bone ??? Diabetes Father ??? Cancer Father testicular No known prostate cancer in the family. Social History Socioeconomic History ??? Marital status: [...] per session: 1 or 2 Comment: rarely ??? Drug use: No ??? Sexual activity: Yes Partners: Female Lifestyle ??? Physical activity: Days per week: Not on file Minutes per session: Not on file ??? Stress: Not on file Relationships ??? Social connections: Talks on phone: Not on file Gets together: Not on file Attends quaker service: Not on file Active member of [...] Social History Narrative ??? Not on file Physical Exam BP 108/66 (Patient Position: Sitting) Pulse 69 Temp 36.4 ??C (97.5 ??F) (Oral) Wt 91.6 kg (202 lb) SpO2 99% BMI 28.60 kg/m?? KPS: 90 Sclera anicteric. No adenopathy in cervical, supraclavicular, or inguinal regions. Lungs clear in all lal. No back or costo-vertebral angle tenderness. CV with regular rate and rhythm Abdomen soft, nontender, positive bowels sounds, no hepatosplenomegaly. No suprapubic tenderness. No pretibial edema. Rectal with normal tone, guiac negative stool, no masses. Prostate is smooth, symmetric, enlarged, but without discrete nodularity, tenderness, induration, or other focal abnormality. Investigations As above. Assessment/Plan Prostate cancer, GS 4+4=8/10 in MRI defined lesion in right lobe, all 12 standard biopsies negative, Stage [id number], PSA 8.11, AJCC stage grouping IIC (8th ed.). With his prostate cancer demonstrating aggressive features, including the [place] Score of 4+4=8 and its position adjacent to the prostate capsule, Mr. Mckeon is well-advised to proceed with radiation therapy or with surgery at this time. Surgical resection would carry some risk of disease extension beyond the prostate, which would incline in that circumstance towards further treatment with salvage radiation therapy. Surgery would also have a higher risk of erectile dysfunction (by 10-20%) and also a risk of spotting or leaking (a risk which usually does not arise with radiation treatments). On balance, surgery and radiation therapy have equivalent likelihoods of disease control at 20-25 years after treatment. Looked at this way, Mr. Mckeon cannot make a wrong decision. If the patient opts for RT, then we would recommend further treatment with androgen deprivation therapy (ADT), for at least two months before and two months during hisradiation treatments. Side effects of the hormones are primarily male menopause, and improve once the hormones are completed. Once taking the hormones, Mr. Mckeon might want to extend ADT for up to two years after hisradiation treatments, but this decision may be made at a later point in time. We discussed that side effects from radiation therapy in the short-term tend to be relatively easily manageable, and in the long-term tend to be low-risk, other than the risk of erectile dysfunction,which runs on the order of 40%, perhaps slightly higher (50%) with the ADT. If Mr. Mckeon opts for RT, then another possible option would be 5-weeks of external beam radiation therapy (EBRT) along with a brachytherapy seed implant, rather than 9-weeks of EBRT alone. The advantage of the seed implant would be a known higher risk of PSA control in the 6-10 year range, with a chance of improved clinical outcomes in the 10-15 year range. However, this must be balanced against increased urinary symptoms and fatigue the first few weeks after the implant, and a slight risk of urethral stricture ( on the order of 5- 6%) within 5 years after the implant. Also, another benefit ofthe implant would be that with the implant the recommendation for ADT would be cut from two years down to one year, because of current clinical trial data. Mr. Mckeon was advised to consider his option. We will contact him in the next 2-3 weeks regarding his preferences. Ken Mckeon was seen for a total of 80 minutes, with 75 minutes of that time spent in discussionwith the patient regarding his current clinical condition, test results, and further management. documented in this encounter Plan of Treatment Upcoming Encounters Date Type Department Care Team (Late st Contact Info) Description 12/15/2024 11:30 AM EDT Office [place] [address] Charline Ziegler MD [facility] [place] [address] Scheduled Referrals Name Type Priority Associated Diagnoses Orde r Schedule Referral to Radiation Oncology Outpatient Referral Routine Malignant neoplasm of prostate Ordered: 02/11/2019 documented as of this encounter Visit Diagnoses Diagnosis Malignant neoplasm of prostate documented in this encounter Care Teams Campus Wellness Coordinator Relationship Specialty Start Date End Date Reji Adams MD [facility] [place] [address] PCP - General General Internal Medicine 07/13/15 documented as of this encounter
--- OUTSIDE RECORDS SUMMARY | 2024-07-09 11:12 | XMS_ITS | Encounter Summary ---
Author Organization [facility] Address [facility] [place] [address] Care Team Providers Care Dress Cutter Name Role Phone Reji Adams MD Primary Care Provider [phone] Encounter Details Date Type Department Care Team (Latest Contact Info) Description 12/24/2019 8:30 AM EDT Laboratory Appointment Lab at [address] [phone] Weight loss; Constipation, unspecified constipation type Social [...] 11:30 AM EDT Office [place] [address] Charline Ziegler MD [facility] [place] [address] documented as of this encounter Procedures Procedure Name Priority Date/Time Associated Diagnosis Comments HEMOGRAM Routine 12/24/2019 8:33 AM EDT Weight loss DIFFERENTIAL, AUTOMATED Routine 12/24/2019 8:33 AM EDT Weight loss HC CBC,PLT & AUTO DIFF Routine 12/24/2019 8:33 AM EDT Weight loss HC THYROID STIMULATING HORMONE, SERUM Routine 12/24/2019 8:33 AM EDT Weight loss Constipation, unspecified constipation type COMPREHENSIVE METABOLIC PANEL Routine 12/24/2019 8:33 AM EDT Weight loss documented in this encounter Results * Differential, Automated (12/24/2019 8:33 AM EDT) Neutrophil % 47.0 % [facility] Neutrophil Absolute 2.82 1.70 - 6.10 x10(3)/[facility] Lymph % 42.4 % [facility] Lymphocytes Abs 2.5 0.9 - 3.2 x10(3)/[facility] Monocyte % 7.0 % [facility] Monocyte Abs 0.4 0.3 - 0.9 x10(3)/[facility] Eos % 2.7 % [facility] Eosinophils Abs 0.2 0.0 - 0.4 x10(3)/[facility] Basophil % 0.7 % [facility] Baso Absolute 0.0 0.0 - 0.1 x10(3)/[facility] Immature Gran % 0.20 % [facility] Comment: Immature granulocytes(IG's)percentage and absolute count will include metamyelocytes, myelocytes, and promyelocytes. Blood smears from CBCs yielding IG's will be scanned manually for concordance. If this scan disagrees with the automated IG or if promyelocytes are noted, a manual differential will be performed. Immature Gran Absolute 0.01 0.00 - 0.04 x10(3)/[facility] Blood specimen (specimen) 12/24/2019 8:33 AM EDT 12/24/2019 10:38 AM EDT Narrative Resulting Agency Comment Spec In Lab Mirlande New MD HEMATOLOGY ORDERABLE S Performing Organization Address City/[facility]/[place] [address] * (ABNORMAL) Hemogram (12/24/2019 8:33 AM EDT) White Blood Cell 6.0 4.0 - 9.5 x10(3)/mc L [facility] Red Blood Cell 5.09 4.58 - 5.54 x10(6)/mc L [facility] Hemoglobin 15.5 13.7 - 16.5 gm/dL [facility] Hematocrit 47.0 40.5 - 48.5 % [facility] Mean Cell Volume 92.3 82.9 - 93.1 [facility] Mean Cell Hemoglobin 30.5 27.5 - 32.1 pg [facility] Mean Cell Hemoglobin Concentration 33.0 32.0 - 35.7 gm/dL [facility] Platelet 179 145 - 357 x10(3)/mc L [facility] RDW Standard Deviation 49.3(H) 36.0 - 45.0 [facility] RDW coefficient of variation 14.4(H) 11.4 - 13.8 % [facility] Mean Platelet Volume 9.9 7.6 - 12.9 [facility] NRBC% auto 0.0 % [facility] NRBC Absolute 0.000 0.000 - 0.000 x10(3)/mc L [facility] Blood specimen (specimen) 12/24/2019 8:33 AM EDT 12/24/2019 10:38 AM EDT Narrative Resulting Agency Comment Spec In Lab Mirlande New MD HEMATOLOGY ORDERABLE S [facility] [place] [address] * TSH (12/24/2019 8:33 AM EDT) Thyroid Stimulating Hormone 1.52 0.27 - 4.20 mcIU/mL [facility] Blood specimen (specimen) 12/24/2019 8:33 AM EDT 12/24/2019 10:24 AM EDT Narrative Resulting Agency Comment Spec In Lab Mirlande New MD CHEMISTRY ORDERABLES [facility] [place] [address] * Comprehensive metabolic panel (non-fasting) (12/24/2019 8:33 AM EDT) Pathologist [facility] Glucose 85 65 - 199 mg/dL [facility] Comment:Diabetes: >=200 mg/d L plus symptoms Blood Urea Nitrogen 16 10 - 20 mg/dL [facility] Creatinine 1.11 0.80 - 1.50 mg/dL [facility] Sodium 142 135 - 145 mmol/L [facility] Potassium 3.9 3.5 - 5.0 mmol/L [facility] [...] mmol/L [facility] Anion Gap 12 5 - 15 mmol/L [facility] Calcium 9.7 8.5 - 10.5 mg/dL [facility] Protein, Total 7.1 6.1 - 8.0 gm/dL [facility] Albumin 4.6 3.2 - 5.2 gm/dL [facility] Aspartate Aminotransferase 19 0 - 39 unit/L [facility] Alanine Aminotransferase 10 0 - 55 unit/L [facility] Alkaline Phosphatase 54 40 - 130 unit/L [facility] Bilirubin, Total 0.8 0.2 - 1.3 mg/dL [facility] Est Glomerular Filtration Rate 66 >=60 mL/min/1. 73 m?? [facility] Comment: The eGFR was calculated using the CKD-EPI equation. As with all creatinine based estimates of kidney function, eGFR values calculated with the CKD-EPI equation are not accurate in patients with acute kidney failure, extremes of body mass or the acutely ill. [email or web address] eGFR 76 >=60 mL/min/1. 73 m?? [facility] Comment: The eGFR was calculated using the CKD-EPI equation. As with all creatinine based estimates of kidney function, eGFR values calculated with the CKD-EPI equation are not accurate in patients with acute kidney failure, extremes of body mass or the acutely ill. [email or web address] Blood specimen (specimen) 12/24/2019 8:33 AM EDT 12/24/2019 10:24 AM EDT Narrative Resulting Agency Comment Spec In Lab Mirlande New MD CHEMISTRY ORDERABLES [facility] [place] [address] documented in this encounter Visit Diagnoses Diagnosis Weight loss Loss of weight Constipation, unspecified constipation type documented in this encounter Care Teams Dress Cutter Relationship Specialty Start Date End Date Reji Adams MD [facility] [place] [address] PCP - General General Internal Medicine 07/13/15 documented as of this encounter
--- OUTSIDE RECORDS SUMMARY | 2024-07-09 11:12 | XMS_ITS | Encounter Summary ---
Author Organization Formerly [facility], [facility] Address [facility] [place] [address] Care Team Providers Care Tissue Technician Name Role Phone Reji Adams MD Primary Care Provider [phone] Encounter Details Date Type Department Care Team (Late st Contact Info) Description 04/08/2019 [place] [phone] Tobias Mcginnis MD [facility] [place] [address] Social History Tobacco Use Types Packs/Day Years [...] Miscellaneous Notes * Telephone Encounter - Yuliana Tipton - 04/08/2019 10:01 AM EDT Pt called and spk w/ Fatou on phone. He called to cancel all appointments and surgery on 04/23. He said that he is seeking another treatment at another facility. Thank you Yuliana documented in this encounter Plan of Treatment Upcoming Encounters Date Type Department Care Team (Late st Contact Info) Description 12/15/2024 11:30 AM EDT Office [place] [address] Charline Ziegler MD [facility] [place] [address] documented as of this encounter Visit Diagnoses Not on filedocumented in this encounter Care Teams Tissue Technician Relationship Specialty Start Date End Date Reji Adams MD [facility] GENERAL [place] [address] PCP - General General Internal Medicine 07/13/15 documented as of this encounter
--- OUTSIDE RECORDS SUMMARY | 2024-07-09 11:12 | XMS_ITS | Encounter Summary ---
Author Organization [facility] [place] [address] Care Team Providers Care Development Assistant Name Role Phone Reji Adams MD Primary Care Provider [phone] Reason for Visit * Reason Onset Date Comments Medication Problem 12/23/2019 Encounter Details Date Type Department Care Team (Late st Contact Info) Description 12/23/2019 Telephone Internal Medicine at [address] [address] Karma Bañuelos Medication Problem Social History Tobacco Use Types [...] Telephone Encounter - Dafne Hickey RN - 12/23/2019 2:39 PM EDT Phoned pharmacy, they have alprazolam script on hold for patient, just need permission to fill, they can also have patient destroy the medications he has in front of them, they will do a pill count prior to destroying the medication and then fill with script they have on file * Telephone Encounter - BañuelosAmber wilsontiny Olson - 12/23/2019 2:32 PM EDT Pharmacy or caller: [facility] [place] Medication: ALPRAZolam (Xanax) 0.25 mg Tablet Message: pharmacist needs to speak with the nurse about this prescription would not be more specific. Please call to discuss Did you contact your pharmacy?: yes documented in this encounter Plan of Treatment Upcoming Encounters Date Type Department Care Team (Late st Contact Info) Description 12/15/2024 11:30 AM EDT Office [place] [address] Charline Ziegler MD [facility] [place] [address] documented as of this encounter Visit Diagnoses Not on filedocumented in this encounter Care Teams Development Assistant Relationship Specialty Start Date End Date Reji Adams MD [facility] GENERAL [place] [address] PCP - General General Internal Medicine 07/13/15 documented as of this encounter
--- OUTSIDE RECORDS SUMMARY | 2024-07-09 11:12 | XMS_ITS | Encounter Summary ---
Author Organization Formerly [facility] [place] [address] Care Team Providers Care Communications Instructor Name Role Phone Reji Adams MD Primary Care Provider [phone] Reason for Visit * Reason Onset Date Comments Medication Refill 02/20/2019 Encounter Details Date Type Department Care Team (Late st Contact Info) Description 02/20/2019 Refill Internal Medicine at [address] [address] Reji Adams MD [facility] [place] [address] Social History Tobacco Use Types Packs/Day Years [...] 11:30 AM EDT Office [place] [address] Charline Ziegler MD [facility] [place] [address] documented as of this encounter Visit Diagnoses Not on filedocumented in this encounter Additional Health Concerns Infection Onset Date Last Indicated Resolved Time Rule Out C. difficile 03/08/2020 03/08/20202019 11:23 AM EDT documented as of this encounter Care Teams Communications Instructor Relationship Specialty Start Date End Date Reji Adams MD [facility] [place] [address] PCP - General General Internal Medicine 07/13/15 documented as of this encounter
--- OUTSIDE RECORDS SUMMARY | 2024-07-09 11:12 | XMS_ITS | Encounter Summary ---
Author Organization [facility] [place] [address] Care Team Providers Care Detail Maker And Fitter Name Role Phone Reji Adams MD Primary Care Provider [phone] Reason for Visit * Reason Onset Date Comments Medication Refill 08/26/2019 Encounter Details Date Type Department Care Team (Late st Contact Info) Description 08/26/2019 Refill Internal Medicine at [address] [address] Reji Adams MD [facility] GENERAL [place] [address] Social History Tobacco Use Types Packs/Day Years [...] 11:30 AM EDT Office [place] [address] Charline Ziegler MD [facility] [place] [address] documented as of this encounter Visit Diagnoses Not on filedocumented in this encounter Care Teams Detail Maker And Fitter Relationship Specialty Start Date End Date Reji Adams MD [facility] GENER[place] [address] PCP - General General Internal Medicine 07/13/15 documented as of this encounter
--- OUTSIDE RECORDS SUMMARY | 2024-07-09 11:12 | XMS_ITS | Encounter Summary ---
Author Organization [facility] [place] [address] Care Team Providers Care Operational Risk Analyst Name Role Phone Reji Adams MD Primary Care Provider [phone] Reason for Visit * Reason Onset Date Comments Medication Refill 06/09/2019 Encounter Details Date Type Department Care Team (Late st Contact Info) Description 06/09/2019 Refill Internal Medicine at [address] [address] Reji Adams MD [facility] GENERAL [place] [address] Social History Tobacco Use Types Packs/Day Years [...] 11:30 AM EDT Office [place] [address] Charline Ziegler MD [facility] [place] [address] documented as of this encounter Visit Diagnoses Not on filedocumented in this encounter Care Teams Operational Risk Analyst Relationship Specialty Start Date End Date Reji Adasm MD [facility] GENERAL [place] [address] PCP - General General Internal Medicine 07/13/15 documented as of this encounter
--- OUTSIDE RECORDS SUMMARY | 2024-07-09 11:13 | XMS_ITS | Encounter Summary ---
Author Organization [facility] [place] [address] Care Team Providers Care Senior Sous Chef Name Role Phone Reji Adams MD Primary Care Provider [phone] Reason for Visit * Reason Comments Other trouble sleeping Encounter Details Date Type Department Care Team (Late st Contact Info) Description 09/03/2018 10:20 AM EST Office Visit Internal Medicine at [address] [address] Reji Adams MD [facility] [place] [address] Folliculitis; Other insomnia; Anxiety Social History Tobacco Use Types Packs/Day [...] Sign Reading Time Taken Comments Blood Pressure 114/77 09/03/2018 10:04 AM EST Pulse 69 09/03/2018 10:04 AM EST Temperature - - Respiratory Rate - - Oxygen Saturation 100% 09/03/2018 10: 04 AM EST Inhaled Oxygen Concentration - - Weight 90.2 kg (198 lb 12.8 oz) 09/03/2018 10:04 AM EST with shoes on Height 179.1 cm (5' 10.51) 09/03/2018 10:04 AM EST reported Body Mass Index 28.11 09/03/2018 10:04 AM EST documented in this encounter Progress Notes * Reji Adams MD - 09/03/2018 10:20 AM EST ESTABLISHED PATIENT VISIT I. HISTORY a. Reason(s) for Visit: Ken Mckeon 72 y.o. male who presents today due to complaint(s) of: No chief complaint on file. b. History of Present Illness: Folliculitis: Pt seen on 08/18 for folliculitis at base of scrotum. Recommended warm compresses Insomnia: pt dose take alprazolam but has resisted any other treatment or other benzo such as a longer acting benzo. Pt states that having some restless legs. Having a lot of anxiety recently. Does not want SSRI. c. Review of Systems: Constitutional - no fevers, chills, weight loss or gain, fatigue Cardiovascular - No CP, palpitations, angina, MARTIN, SOB Respiratory - No SOB, MARTIN, wheeze, cough, sputum production HEENT - No diffculty swallowing, hearing, No nasal congestion or postnasal drip Gastrointestinal - No abdominal pain, nausea, GERD,+ constipation, diarrhea, blood in stool Musculoskeletal - No weakness, pain at rest or with movement All other systems negative d. PMH Patient Active Problem List Diagnosis ??? S/P rotator cuff repair ??? Trigger finger, left ring finger ??? Chronic left shoulder pain ??? Arthritis of right elbow ??? Asymmetrical sensorineural hearing loss ??? Shoulder pain, bilateral ??? Right arm [...] Alcohol/week: 0.0 - 0.6 oz Comment: rarely II. PHYSICAL EXAM: There were no vitals taken for this visit. General - No acute distress, conversing without difficulty. ENT - oropharynx without lesions. Eyes - EOMI. No scleral icterus Extremities - No clubbing, cyanosis or edema. III. ASSESSMENT/PLAN:Ken Mckeon 72 y.o. male presenting for f/u. Ken was seen today for other. Diagnoses and all orders for this visit: Folliculitis - Resolved Other insomnia Anxiety - ALPRAZolam (XANAX XR) 0.5 mg Tablet Sustained Release 24 hr; Take 1 tablet by mouth every evening. - Declines SSRI documented in this encounter Plan of Treatment Upcoming Encounters Date Type Department Care Team (Late st Contact Info) Description 12/15/2024 11:30 AM EDT Office [place] [address] Charline Ziegler MD [facility] [place] [address] documented as of this encounter Visit Diagnoses Diagnosis Folliculitis Other specified disease of hair and hair follicles Other insomnia Anxiety Anxiety state, unspecified documented in this encounter Care Teams Senior Sous Chef Relationship Specialty Start Date End Date Reji Adams MD [facility] [place] [address] PCP - General General Internal Medicine 07/13/15 documented as of this encounter
--- OUTSIDE RECORDS SUMMARY | 2024-07-09 11:13 | XMS_ITS | Encounter Summary ---
Author Organization [facility] [place] [address] Care Team Providers Care Metal Furniture Polisher Name Role Phone Reji Adams MD Primary Care Provider [phone] Reason for Visit * Reason Onset Date Comments Medication Refill 11/25/2018 Encounter Details Date Type Department Care Team (Late st Contact Info) Description 11/25/2018 Refill Internal Medicine at [address] [address] Reji Adams MD [facility] GENER[place] [address] Social History Tobacco Use Types Packs/Day Years [...] EDT Office Visit [place] [address] Charline Ziegler MD [facility] [place] [address] documented as of this encounter Visit Diagnoses Not on filedocumented in this encounter Care Teams Metal Furniture Polisher Relationship Specialty Start Date End Date Reji Adams MD [facility] [place] [address] PCP - General General Internal Medicine 07/13/15 documented as of this encounter
--- OUTSIDE RECORDS SUMMARY | 2024-07-09 11:13 | XMS_ITS | Encounter Summary ---
Author Organization [facility] [place] [address] Care Team Providers Care Appeals Rn Name Role Phone Reji Adams MD Primary Care Provider [phone] Encounter Details Date Type Department Care Team (Late st Contact Info) Description 11/06/2018 2:45 PM EDT Laboratory Appointment Lab [address] [place] [phone] Social History Tobacco Use Types Packs/Day Years [...] AM EDT Office Visit [place] [address] Charline Ziegler MD [facility] [place] [address] documented as of this encounter Visit Diagnoses Not on filedocumented in this encounter Care Teams Appeals Rn Relationship Specialty Start Date End Date Reji Adams MD [facility] [place] [address] PCP - General General Internal Medicine 07/13/15 documented as of this encounter
--- OUTSIDE RECORDS SUMMARY | 2024-07-09 11:13 | XMS_ITS | Encounter Summary ---
Author Organization [facility] [place] [address] Care Team Providers Care Skidder Driver Name Role Phone Reji Adams MD Primary Care Provider [phone] Reason for Visit * Reason Comments Fever Low grade fever warm at night 95.2/ not feeling well Encounter Details Date Type Department Care Team (Late st Contact Info) Description 07/06/2018 11:30 AM EST Office Visit Internal Medicine at [address] [address] Qian Power, MARYBEL [facility] GENER[facility]NAL [facility] [place] [address] Fatigue, unspecified type Social History Tobacco Use Types [...] Sign Reading Time Taken Comments Blood Pressure 107/73 07/06/2018 11:19 AM EST Pulse 72 07/06/2018 11:19 AM EST Temperature 36.9 ??C (98.5 ??F) 07/06/2018 11:[address] Respiratory Rate - - Oxygen Saturation 100% 07/06/2018 11:19 AM EST Inhaled Oxygen Concentration - - Weight 91.2 kg (201 lb) 07/06/2018 11:19 AM EST with shoes Height 179.1 cm (5' 10.5) 07/06/2018 11:[address] Body Mass Index 28.43 07/06/2018 11:19 AM EST documented in this encounter Progress Notes * JannetQian huff, EX CHEF - 07/06/2018 11:30 AM EST PCP: Reji Adams MD Chief Complaint Patient presents with ??? Fever Low grade fever warm at night 95.2/ not feeling well SUBJECTIVE: Ken Mckeon is a 72 y.o. male who presents for not feeling well for the last week. He reports that he has had some stomach upset for about a week. He reports that he woke in the middle of the night and he had a dry mouth, but he felt very hot. However, his temperature of 95.2, 95.6. He did not take anything. He did drink some water and a half a banana. He did go back to bed and was able to fall back asleep. - He reports that this morning he still has some stomach upset, he has not been sleeping well. Someupper abdominal pain, endoscopy was normal. He has found that it is aching and it is calmed by eating something. - Toes are getting cold at night. He wears compression stockings during the day. He has been walking everyday. He has been gaining some weight. He feels that anxiety is worse recently. He is scheduled for surgery on his shoulder next week and that is on his mind a lot recently. The holidays are a difficult time for him as well. Review of Systems HENT: Negative for sinus pressure and sinus pain. Respiratory: Negative for cough and shortness of breath. Cardiovascular: Positive for palpitations (not new). Negative for chest pain. Gastrointestinal: Positive for nausea. Negative for constipation, diarrhea and vomiting. Allergies Allergen Reactions ??? Penicillins Anaphylaxis Tongue swelling ??? Betamethasone hiccups after injection ??? Dexamethasone Hiccups after injection Current Outpatient Medications Medication Sig Dispense Refill ??? ALPRAZolam (XANAX) 0.25 mg Tablet Take 1 tablet by mouth 3 times daily as needed for Sleep. 60 tablet 0 ??? pravastatin (PRAVACHOL) 20 mg Tablet Take 1 tablet by mouth daily. 90 tablet 3 ??? MALCOLM EXTRACT ORAL Take by mouth. ??? aspirin 81 mg Tablet, Delayed Release (E.C.) Take 81 mg by mouth daily. ??? multivitamin (THERAGRAN) tablet Take 1 tablet by mouth daily. ??? Saw Lantry 500 mg capsule Take 500 mg by mouth daily. ??? acetaminophen (TYLENOL ARTHRITIS PAIN) 650 mg Tablet Sustained Release Take 650 mg by mouth every 8 hours as needed for Pain. Do not exceed 6 tabs in 24 hours No current facility-administered medications for this visit. [...] hand pain M79.641 ??? Right arm numbness R20.2 ??? Shoulder pain, bilateral M25.511, M25.512 ??? Panic attack F41.0 ??? Otalgia of left ear H92.02 ??? 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 Otalgia H92.09 ??? Chronic left shoulder pain M25.512, G89.29 ??? 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 Trigger finger, left ring finger M65.342 OBJECTIVE: Vitals: 07/06/18 1119 BP: 107/73 Pulse: 72 Temp: 36.9 ??C (98.5 ??F) TempSrc: Oral SpO2: 100% Weight: 91.2 kg (201 lb) Height: 179.1 cm (5' 10.5) PHYSICAL EXAM: Physical Exam Constitutional: He is oriented to person, place, and time. He appears well- developed and well-nourished. No distress. HENT: Head: Normocephalic and atraumatic. Eyes: Conjunctivae are normal. Cardiovascular: Normal rate, regular rhythm and normal heart sounds. No murmur heard. Pulmonary/Chest: Effort normal and breath sounds normal. He has no wheezes. He has no rales. He exhibits no tenderness. Neurological: He is alert and oriented to person, place, and time. Skin: Skin is warm and dry. Psychiatric: He has a normal mood and affect. His behavior is normal. Judgment and thought content normal. Vitals reviewed. ASSESSMENT & PLAN: Ken was seen today for fever. Diagnoses and all orders for this visit: Fatigue, unspecified type -reassured patient that his thermometer was likely inaccurate with reading of 95.2 and him feeling hot at home. Suspect that he may be getting a viral illness. He will continue to monitor symptoms and discussed symptomatic treatment. documented in this encounter Plan of Treatment Upcoming Encounters Date Type Department Care Team (Late st Contact Info) Description 12/15/2024 11:30 AM EDT Office [place] [address] Charline Ziegler MD [facility] [place] [address] documented as of this encounter Visit Diagnoses Diagnosis Fatigue, unspecified type documented in this encounter Care Teams Skidder Driver Relationship Specialty Start Date End Date Reji Adams MD [facility] [place] [address] PCP - General General Internal Medicine 07/13/15 documented as of this encounter
--- OUTSIDE RECORDS SUMMARY | 2024-07-09 11:13 | XMS_ITS | Encounter Summary ---
Author Organization [facility] [place] [address] Care Team Providers Care Erp Specialist Name Role Phone Reji Adams MD Primary Care Provider [phone] Encounter Details Date Type Department Care Team (Latest Contact Info) Description 07/30/2018 12:45 PM EST Laboratory Appointment Lab [address] [place] [phone] Luana's thyroiditis Social History Tobacco Use Types Packs/Day Years [...] 11:30 AM EDT Office Visit [place] [address] Charline Ziegler MD [facility] [place] [address] documented as of this encounter Procedures Procedure Name Priority Date/Time Associated Diagnosis Comments THYROID PEROXIDASE ANTIBODY Routine 07/30/2018 12:54 PM EST Luana's thyroiditis TSH Routine 07/30/2018 12:54 PM EST Luana's thyroiditis T4, FREE Routine 07/30/2018 12:54 PM EST Luana's thyroiditis documented in this encounter Results * TSH (07/30/2018 12:54 PM EST) Thyroid Stimulating Hormone 1.66 0.27 - 4.20 mlU/ML [facility] Blood specimen (specimen) 07/30/2018 12:54 PM EST 07/30/2018 1:05 PM EST Narrative Resulting Agency Comment Spec In Lab Reji Adams MD CHEMISTRY ORDERABLES Performing Organization Address [facility] Co de Phone Number [facility] [place] [address] * (ABNORMAL) Thyroid peroxidase antibody (07/30/2018 12:54 PM EST) Thyroperoxidase Ab 60(H) <=34 IU/mL [facility] Blood specimen (specimen) 07/30/2018 12:54 PM EST 07/31/2018 7:32 AM EST Narrative Resulting Agency Comment Spec In Lab Reji Adams MD IMMUNOLOGY ORDERABLE S Performing Organization Address [facility] Co de Phone Number [facility] [place] [address] * T4, free (07/30/2018 12:54 PM EST) Free T4 1.16 0.93 - 1.70 ng/dL [facility] Blood specimen (specimen) 07/30/2018 12:54 PM EST 07/30/2018 1:05 PM EST Narrative Resulting Agency Comment Spec In Lab Reji Adams MD CHEMISTRY ORDERABLES Performing Organization Address [facility]/State/ZIP Co de Phone Number [facility] [place] [address] documented in this encounter Visit Diagnoses Diagnosis Luana's thyroiditis Chronic lymphocytic thyroiditis documented in this encounter Care Teams Erp Specialist Relationship Specialty Start Date End Date Reji Adams MD [facility] [place] [address] PCP - General General Internal Medicine 07/13/15 documented as of this encounter
--- OUTSIDE RECORDS SUMMARY | 2024-07-09 11:13 | XMS_ITS | Encounter Summary ---
Author Organization [facility]ly [facility] [place] [address] Care Team Providers Care Unix Analyst Name Role Phone Reji Adams MD Primary Care Provider [phone] Reason for Visit * Reason Onset Date Comments Medication Refill 12/24/2018 Encounter Details Date Type Department Care Team (Late st Contact Info) Description 12/24/2018 Refill Internal Medicine at [address] [address] Reji Adams MD [facility] [place] [address] Social History Tobacco Use Types Packs/Day Years [...] 11:30 AM EDT Office [place] [address] Charline Ziegler MD [facility] [place] [address] documented as of this encounter Visit Diagnoses Not on filedocumented in this encounter Care Teams Unix Analyst Relationship Specialty Start Date End Date Reji Adams MD [facility] [place] [address] PCP - General General Internal Medicine 07/13/15 documented as of this encounter
--- OUTSIDE RECORDS SUMMARY | 2024-07-09 11:13 | XMS_ITS | Encounter Summary ---
Author Organization [facility] [place] [address] Care Team Providers Care Tire Rebuilder Name Role Phone Reji Adams MD Primary Care Provider Reason for Visit * Reason Comments Follow-up Encounter Details Date Type Department Care Team (Late st Contact Info) Description 08/07/2018 3:00 PM EST Office Visit Internal Medicine at [address] [address] Reji Adams MD [facility] GENERAL [place] [address] Anxiety; Luana's thyroiditis; Hyperlipidemia, unspecified hyperlipidemia type; S/P rotator cuff repair Social History Tobacco Use Types Packs/Day Years [...] Sign Reading Time Taken Comments Blood Pressure 112/68 08/07/2018 2:52 PM EST Pulse 69 08/07/2018 2:52 PM EST Temperature 36.8 ??C (98.3 ??F) 08/07/2018 2:52 PM ES T Respiratory Rate 16 08/07/2018 2:52 PM EST Oxygen Saturation 100% 08/07/2018 2:52 PM EST Inhaled Oxygen Concentration - - Weight 93.4 kg (205 lb 12.8 oz) 08/07/2018 2:52 PM EST Height - - Body Mass Index 29.11 07/06/2018 11:19 AM EST documented in this encounter Progress Notes * Reji Adams MD - 08/07/2018 3:00 PM EST ESTABLISHED PATIENT VISIT I. HISTORY a. Reason(s) for Visit: Ken Mckeon 72 y.o. male who presents today due to complaint(s) of: Chief Complaint Patient presents with ??? Follow-up b. History of Present Illness: Anxiety: Started on clonazepam 0.5mg bid 03/17/18 but never filled and continued on alprazolam 0.25mg tid. A lot of stress. Has declined SSRIS multiple times in the past. HLD: on pravastatin 20mg daily with LDL under good control at 79. No side effects. Thyroiditis: seen by Dr Olivas. TFTs normal at this point but still with positive Anti TPO abs but lower at 60 currently. L shoulder: underwent shoulder arthroscopy and RTC repair. c. Review of Systems: Constitutional - no [...] with movement All other systems negative d. PM Patient Active Problem List Diagnosis ??? Trigger finger, left ring finger ??? [...] 0.6 oz Comment: rarely II. PHYSICAL EXAM: BP 112/68 (BP Location (NBP): Right arm, Patient Position: Sitting, BP Cuff Sizes: Large Adult (32-43 cm)) Pulse 69 Temp 36.8 ??C (98.3 ??F) (Oral) Resp 16 Wt 93.4 kg (205 lb 12.8 oz) SpO2 100% BMI 29.11 kg/m?? General - No acute distress, conversing without difficulty. ENT - oropharynx without lesions. Eyes - EOMI. No scleral icterus Extremities - No clubbing, cyanosis or edema. III. ASSESSMENT/PLAN:Ken Mckeon 72 y.o. male presenting for f/u. Kne was seen today for follow-up . Diagnoses and all orders for this visit: Anxiety - Cont prn alprazolam. Not ideal medication but pt worried to trial different benzo. No escalation despite being on for year Luana's thyroiditis - Euthyroid Hyperlipidemia, unspecified hyperlipidemia type - Cont pravastatin S/P rotator cuff repair - Doing well - Cont PT documented in this encounter Plan of Treatment Upcoming Encounters Date Type Department Care Team (Late st Contact Info) Description 12/15/2024 11:30 AM EDT Office Visit [place] [address] Charline Ziegler MD [facility] [place] [address] documented as of this encounter Visit Diagnoses Diagnosis Anxiety Anxiety state, unspecified Luana's thyroiditis Chronic lymphocytic thyroiditis Hyperlipidemia, unspecified hyperlipidemia type S/P rotator cuff repair Other postprocedural status documented in this encounter Care Teams Tire Rebuilder Relationship Specialty Start Date End Date Reji Adams MD [facility] GENERAL [place] [address] PCP - General General Internal Medicine 07/13/15 documented as of this encounter
--- OUTSIDE RECORDS SUMMARY | 2024-07-09 11:13 | XMS_ITS | Encounter Summary ---
Author Organization [facility] [place] [address] Care Team Providers Care Assistant Grocery Store Manager Name Role Phone Reji Adams MD Primary Care Provider [phone] Encounter Details Date Type Department Care Team (Latest Contact Info) Description 12/28/2018 1:45 PM EDT Office Visit Audiology at [address] [phone] Celia Griffin AUD [facility] [place] [address] Sensorineural hearing loss (SNHL) of left ear with restricted hearing of right ear; High frequency hearing loss, right; Bilateral tinnitus; Otalgia, left Social History Tobacco Use Types Packs/Day Years [...] as of this encounter Progress Notes * Celia Griffin AUD - 12/28/2018 1:45 PM EDT [place] [address] Ken Mckeon was seen on 12/28/2018 for an audiologic evaluation in conjunction with Mary Ny MD in Otolaryngology. Please refer to the scanned audiogram listed under Procedures for findings, impressions and [place] [address] documented in this encounter Plan of Treatment Upcoming Encounters Date Type Department Care Team (Late st Contact Info) Description 12/15/2024 11:30 AM EDT Office Visit Gastroenterology at [place] [phone] Charline Ziegler MD [facility] [place] [address] documented as of this encounter Procedures Procedure Name Priority Date/Time Associated Diagnosis Comments COMPREHENSIVE HEARING TEST Routine 12/28/2018 1:51 PM EDT documented in this encounter Results * Comprehensive hearing test (12/28/2018 1:51 PM EDT) 12/28/2018 1:51 PM EDT Narrative [facility] - 12/28/2018 1:51 PM EDT -Follow up with Mary Ny MD in Otolaryngology Procedure Note Unknown - 12/28/2018 -Follow up with Mary Ny MD in Otolaryngology Unknown AUDIOLOGY SERVICES O RDERABLES [facility] documented in this encounter Visit Diagnoses Diagnosis Sensorineural hearing loss (SNHL) of left ear with restricted hearing of right ear High frequency hearing loss, right Bilateral tinnitus Otalgia, left documented in this encounter Care Teams Assistant Grocery Store Manager Relationship Specialty Start Date End Date Reji Adams MD [facility] GENERAL [place] [address] PCP - General General Internal Medicine 07/13/15 documented as of this encounter
--- OUTSIDE RECORDS SUMMARY | 2024-07-09 11:13 | XMS_ITS | Encounter Summary ---
Author Organization [facility] [place] [address] Care Team Providers Care Wire Coating Operator Metal Name Role Phone Reji Adams MD Primary Care Provider [phone] Encounter Details Date Type Department Care Team (Late st Contact Info) Description 05/01/2018 7:00 AM EDT Laboratory Appointment Lab [address] [place] [phone] Thyroiditis Social History Tobacco Use Types Packs/Day [...] 11:30 AM EDT Office [place] [phone] Charline Ziegler MD [facility] [place] [address] documented as of this encounter Procedures Procedure Name Priority Date/Time Associated Diagnosis Comments THYROID PEROXIDASE ANTIBODY Routine 05/01/2018 7:11 AM EDT Thyroiditis T3 TOTAL Routine 05/01/2018 7:11 AM EDT Thyroiditis TSH STAT 05/01/2018 7:11 AM EDT Thyroiditis T4, FREE STAT 05/01/2018 7:11 AM EDT Thyroiditis CORTISOL Routine 05/01/2018 7:11 AM EDT Thyroiditis documented in this encounter Results * TSH (05/01/2018 7:11 AM EDT) Thyroid Stimulating Hormone 3.05 0.27 - 4.20 mlU/ML [facility] Blood specimen (specimen) 05/01/2018 7:11 AM EDT 05/01/2018 7:22 AM EDT Narrative Resulting Agency Comment Spec In Lab Frantz Olivas MD CHEMISTRY ORDERABLES Performing Organization Address City/[facility]/ZIP Co de Phone Number [facility] [place] [address] * (ABNORMAL) Thyroid peroxidase antibody (05/01/2018 7:11 AM EDT) Thyroperoxidase Ab 111(H) <=34 IU/mL [facility] Blood specimen (specimen) 05/01/2018 7:11 AM EDT 05/01/2018 11:08 AM EDT Narrative Resulting Agency Comment Spec In Lab Frantz Olivas MD IMMUNOLOGY ORDERABLE S [facility] [place] [place] [address] * T3 Total (05/01/2018 7:11 AM EDT) T3 Total 106 75 - 170 ng/dL [facility] Blood specimen (specimen) 05/01/2018 7:11 AM EDT 05/01/2018 7:22 AM EDT Narrative Resulting Agency Comment Spec In Lab Frantz Olivas MD CHEMISTRY ORDERABLES Performing Organization Address City/[facility]/ZIP Co de Phone Number [facility] [place] [address] * T4, free (05/01/2018 7:11 AM EDT) Free T4 1.08 0.93 - 1.70 ng/dL [facility] Blood specimen (specimen) 05/01/2018 7:11 AM EDT 05/01/2018 7:22 AM EDT Narrative Resulting Agency Comment Spec In Lab Frantz Olivas MD CHEMISTRY ORDERABLES Performing Organization Address [facility] Co de Phone Number [facility] [place] [address] * Cortisol (05/01/2018 7:11 AM EDT) Cortisol 12.9 mcg/dL [facility] Comment: Reference ranges: ??AM (6-10am): ??4.8-19.5 mcg/dL ??PM (4-8pm) : ??2.5-11.9 mcg/dL Blood specimen (specimen) 05/01/2018 7:11 AM EDT 05/01/2018 7:22 AM EDT Narrative Resulting Agency Comment Spec In Lab Frantz Olivas MD CHEMISTRY ORDERABLES Performing Organization Address City/[facility] Co de Phone Number [facility] [place] [address] documented in this encounter Visit Diagnoses Diagnosis Thyroiditis Thyroiditis, unspecified documented in this encounter Care Teams Wire Coating Operator Metal Relationship Specialty Start Date End Date Reji Adams MD [facility] GENER[place] [address] PCP - General General Internal Medicine 07/13/15 documented as of this encounter
--- OUTSIDE RECORDS SUMMARY | 2024-07-09 11:13 | XMS_ITS | Encounter Summary ---
Author Organization [facility] [place] [address] Care Team Providers Care Precision Farming Specialist Name Role Phone Reji Adams MD Primary Care Provider [phone] Reason for Visit * Reason Comments Allergies no energy Encounter Details Date Type Department Care Team (Late st Contact Info) Description 01/05/2019 2:20 PM EDT Office Visit Internal Medicine at [address] [address] Reji Adams MD [facility] GENERAL INTERNAL [place] [address] Chronic fatigue; Seasonal allergies Social History Tobacco Use Types Packs/Day Years [...] Sign Reading Time Taken Comments Blood Pressure 117/69 01/05/2019 2:12 PM EDT Pulse 59 01/05/2019 2:12 PM EDT Temperature 36.6 ??C (97.9 ??F) 01/05/2019 2:12 PM ED T Respiratory Rate - - Oxygen Saturation 100% 01/05/2019 2:12 PM EDT Inhaled Oxygen Concentration - - Weight 93.7 kg (206 lb 9.6 oz) 01/05/2019 2:12 P M EDT Height 179.1 cm (5' 10.5) 01/05/2019 2:12 PM ED T Body Mass Index 29.23 01/05/2019 2:12 PM EDT documented in this encounter Progress Notes * Reji Adams MD - 01/05/2019 2:20 PM EDT ESTABLISHED PATIENT VISIT I. HISTORY a. Reason(s) for Visit: Ken Mckeon 73 y.o. male who presents today due to complaint(s) of: Chief Complaint Patient presents with ??? Allergies no energy b. History of Present Illness:[] Pt states that is feel fatigued with no energy that lasts until about mid-day. Wakes up after caffeine. No congestion. Has had similar sxs in the past without etiology. Has not been sleeping well. Having some nasal congestion also c. Review of Systems: Constitutional - no fevers, chills, weight loss or gain,+ fatigue Cardiovascular - No CP, palpitations, angina, MARTIN, SOB Respiratory - No SOB, MARTIN, wheeze, cough, sputum production HEENT - No diffculty swallowing, hearing, + mild nasal congestion \ Gastrointestinal - No abdominal [...] oz Comment: rarely II. PHYSICAL EXAM: BP 117/69 Pulse 59 Temp 36.6 ??C (97.9 ??F) (Oral) Ht 179.1 cm (5' 10.5) Wt 93.7 kg (206 lb 9.6 oz) SpO2 100% BMI 29.23 kg/m?? General - No acute distress, conversing without difficulty. ENT - oropharynx without lesions. Eyes - EOMI. No scleral icterus Neck - No lymphadenopathy, supple, no masses Lungs - Clear to auscultation Heart - RRR, S1,S2, no murmur, gallop or rub. Extremities - No clubbing, cyanosis or edema. Pulses intact. III. ASSESSMENT/PLAN:Ken Mckeon 73 y.o. male presenting with fatigue and seasonal allergies. Ken was seen today for allergies. Diagnoses and all orders for this visit: Chronic fatigue - TSH; Future - CBC (with Diff); Future - Comprehensive metabolic panel (non-fasting); Future - Comprehensive metabolic panel (non-fasting) - CBC (with Diff) - TSH Seasonal allergies - fluticasone propionate (FLONASE) 50 mcg/actuation [place], Suspension; 1 spray by Each Nare route daily. Meds reconciled * Tomas Raphael - 01/05/2019 2:20 PM EDT ESTABLISHED PATIENT VISIT I. HISTORY a. Reason(s) for Visit: Ken Mckeon 73 y.o. male who presents today due to complaint(s) of: Chief Complaint Patient presents with ??? Allergies no energy b. History of Present Illness: Past couple days have been the worst, no sneeze, itchy eyes and typical allergy symptoms but he's had some fatigue/sluggishness/no energy, he doesn't describe it as drowsiness. Fatigue feeling mainlywhen he gets up and up until mid-day. Breathing feels restricted, can breathe through nose but is restricted, but feels like a pressure. He has been seen for this in the past 12/10 and was having walking a mile, but states that this is not an issue. Hasn't been sleeping great. Gets sometimes 4.5, but other times 8-9 hours but it's erratic. Thinks it's thought process causing this issue. Main difficulty falling asleep. Sounds like he has good sleep hygiene. Not sure if he snores. No cough, no sputum, some mild congestion in maxillary sinus region. Happened about 4-5 years ago that he came down with fatigue in the spring/summer but never had allergies as a kid. Had used some saline spray in nose but is reluctant to do antihistamine. Has tried ed, claritin before and he didn't like the way it made him feel. Didn't make a big difference. c. Review of Systems: Constitutional - no fevers, chills, weight loss or gain, fatigue Cardiovascular - No CP, palpitations, angina, MARTIN, SOB Respiratory - No SOB, MARTIN, wheeze, cough, sputum production HEENT - No diffculty swallowing, hearing, No nasal congestion or postnasal drip Gastrointestinal - No abdominal pain, nausea, GERD, constipation, diarrhea, blood in stool Musculoskeletal - No weakness, pain at rest or with movement All other systems negative d. H Patient Active Problem List Diagnosis ??? S/P [...] oz Comment: rarely II. PHYSICAL EXAM: BP 117/69 Pulse 59 Temp 36.6 ??C (97.9 ??F) (Oral) Ht 179.1 cm (5' 10.5) Wt 93.7 kg (206 lb 9.6 oz) SpO2 100% BMI 29.23 kg/m?? General - No acute distress, conversing without difficulty. ENT - oropharynx without lesions. Eyes - EOMI. No scleral icterus Neck - No lymphadenopathy, supple, no masses Lungs - Clear to auscultation and percussion. Heart - RRR, S1,S2, no murmur, gallop or rub. Abdomen/GI - Soft, nontender, normal active bowel sounds, neg hsm or masses. Extremities - No clubbing, cyanosis or edema. Pulses intact. Neuro: Alert and oriented x 3 III. ASSESSMENT/PLAN:Ken Mckeon 73 y.o. male presenting with fatigue. #fatigue potentially 2/2 environmental allergies due to the seasonal nature of this fatigue. Fatigue is not constant throughout the day so less likely to be related to anemia. Patient has had a history of thyroid disease in the past, so this could be related to hypothyroidism. *start flonase nasal spray 1 puff each nostril each day *Labs: CBC, CMP, TSH in case of hypothyroidism Meds reconciled Tomas Raphael Medical Student documented in this encounter Plan of Treatment Upcoming Encounters Date Type Department Care Team (Late st Contact Info) Description 12/15/2024 11:30 AM EDT Office [place] [phone] Charline Ziegler MD [facility] [place] [address] documented as of this encounter Procedures Procedure Name Priority Date/Time Associated Diagnosis Comments HEMOGRAM Routine 01/05/2019 3:14 PM EDT Chronic fatigue DIFFERENTIAL, AUTOMATED Routine 01/05/2019 3:14 PM EDT Chronic fatigue CBC (WITH DIFF) Routine 01/05/2019 3:14 PM EDT Chronic fatigue TSH Routine 01/05/2019 3:14 PM EDT Chronic fatigue COMPREHENSIVE METABOLIC PANEL Routine 01/05/2019 3:14 PM EDT Chronic fatigue documented in this encounter Results * Differential, Automated (01/05/2019 3:14 PM EDT) Neutrophil % 51.2 % [facility] Neutrophil Absolute 3.30 1.70 - 6.10 x10(3)/[facility] Lymph % 40.1 % [facility] Lymphocytes Abs 2.6 0.9 - 3.2 x10(3)/[facility] Monocyte % 6.2 % [facility] Monocyte Abs 0.4 0.3 - 0.9 x10(3)/[facility] Eos % 1.7 % [facility] Eosinophils Abs 0.1 0.0 - 0.4 x10(3)/[facility] Basophil % 0.6 % [facility] Baso Absolute 0.0 0.0 - 0.1 x10(3)/[facility] Immature Gran % 0.20 % [facility] Comment: Immature granulocytes(IG's)percentage and absolute count will include metamyelocytes, myelocytes, and promyelocytes. Blood smears from CBCs yielding IG's will be scanned manually for concordance. If this scan disagrees with the automated IG or if promyelocytes are noted, a manual differential will be performed. Immature Gran Absolute 0.01 0.00 - 0.04 x10(3)/mcL [facility] Blood specimen (specimen) 01/05/2019 3:14 PM EDT 01/05/2019 7:07 PM EDT Narrative Resulting Agency Comment Spec In Lab Reji Adams MD HEMATOLOGY ORDERABLE S [facility] [place] [address] * (ABNORMAL) Hemogram (01/05/2019 3:14 PM EDT) White Blood Cell 6.4 4.0 - 9.5 x10(3)/[facility] Red Blood Cell 5.04 4.58 - 5.54 x10(6)/[facility] Hemoglobin 15.0 13.7 - 16.5 gm/dL [facility] Hematocrit 45.5 40.5 - 48.5 % [facility] Mean Cell Volume 90.3 82.9 - 93.1 [facility] Mean Cell Hemoglobin 29.8 27.5 - 32.1 pg [facility] Mean Cell Hemoglobin Concentration 33.0 32.0 - 35.7 gm/dL [facility] Platelet 191 145 - 357 x10(3)/[facility] RDW Standard Deviation 46.0(H) 36.0 - 45.0 [facility] RDW coefficient of variation 13.8 11.4 - 13.8 % [facility] Mean Platelet Volume 10.1 7.6 - 12.9 [facility] NRBC% auto 0.0 % [facility] NRBC Absolute 0.000 0.000 - 0.000 x10(3)/[facility] Blood specimen (specimen) 01/05/2019 3:14 PM EDT 01/05/2019 7:07 PM EDT Narrative Resulting Agency Comment Spec In Lab Reji Adams MD HEMATOLOGY ORDERABLE S [facility] [place] [address] * Comprehensive metabolic panel (non-fasting) (01/05/2019 3:14 PM EDT) Glucose 87 65 - 199 mg/dL [facility] Comment:Diabetes: >=200 mg/d L plus symptoms Blood Urea Nitrogen 13 10 - 20 mg/dL [facility] Creatinine 1.08 0.80 - 1.50 mg/dL [facility] Sodium 137 135 - 145 mmol/L [facility] Potassium 4.0 3.5 - 5.0 mmol/L [facility] Comment: Please note: ??Patients with WBC >100,000 may have falsely elevated Potassium levels. ??For accurate Potassium quantification in these patients send serum separator tube (gold top) for subsequent determinations. ??Contact the Clinical Chemistry Laboratory if there are any questions. Chloride 100 98 - 107 mmol/L [facility] Carbon Dioxide 27 22 - 31 mmol/L [facility] Anion Gap 10 5 - 15 mmol/L [facility] Calcium 9.5 8.5 - 10.5 mg/dL [facility] Protein, Total 6.7 6.1 - 8.0 gm/dL [facility] Albumin 4.6 3.2 - 5.2 gm/dL [facility] Aspartate Aminotransferase 18 0 - 39 unit/L [facility] Alanine Aminotransferase 16 0 - 55 unit/L [facility] Alkaline Phosphatase 56 40 - 120 unit/L [facility] Bilirubin, Total 0.7 0.2 - 1.3 mg/dL [facility] Est Glomerular Filtration Rate 68 >=60 mL/min/1. 73 m?? [facility] Comment: The eGFR was calculated using the CKD-EPI equation. As with all creatinine based estimates of kidney function, eGFR values calculated with the CKD-EPI equation are not accurate in patients with acute kidney failure, extremes of body mass or the acutely ill. [email or web address]/DHnkf eGFR 79 >=60 mL/min/1. 73 m?? [facility] Comment: The eGFR was calculated using the CKD-EPI equation. As with all creatinine based estimates of kidney function, eGFR values calculated with the CKD-EPI equation are not accurate in patients with acute kidney failure, extremes of body mass or the acutely ill. [email or web address]/DHMCnkf Blood specimen (specimen) 01/05/2019 3:14 PM EDT 01/05/2019 7:07 PM EDT Narrative Resulting Agency Comment Spec In Lab Reji Adams MD CHEMISTRY ORDERABLES Performing Organization Address City/[facility]/ZIP Co de Phone Number [facility] [place] [address] * TSH (01/05/2019 3:14 PM EDT) Thyroid Stimulating Hormone 1.47 0.27 - 4.20 mcIU/mL [facility] Blood specimen (specimen) 01/05/2019 3:14 PM EDT 01/05/2019 7:07 PM EDT Narrative Resulting Agency Comment Spec In Lab Reji Adams MD CHEMISTRY ORDERABLES Performing Organization Address City/[facility]/ZIP Co de Phone Number [facility] [place] [address] documented in this encounter Visit Diagnoses Diagnosis Chronic fatigue Other malaise and fatigue Seasonal allergies Allergic rhinitis, cause unspecified documented in this encounter Care Teams Precision Farming Specialist Relationship Specialty Start Date End Date Reji Adams MD [facility] GENERAL [place] [address] PCP - General General Internal Medicine 07/13/15 documented as of this encounter
--- OUTSIDE RECORDS SUMMARY | 2024-07-09 11:13 | XMS_ITS | Encounter Summary ---
Author Organization [facility] [place] [address] Care Team Providers Care Gas Plumber Name Role Phone Reji Adams MD Primary Care Provider [phone] Encounter Details Date Type Department Care Team (Late st Contact Info) Description 11/23/2018 11:35 AM EDT Laboratory Appointment Lab [address] [place] [phone] Elevated PSA Social History Tobacco Use Types Packs/Day Years [...] 11:30 AM EDT Office [place] [phone] Charline Ziegler MD [facility] [place] [address] documented as of this encounter Procedures Procedure Name Priority Date/Time Associated Diagnosis Comments PSA (ULTRASENSITIVE), TOTAL AND FREE Routine 11/23/2018 11:25 AM EDT Elevated PSA documented in this encounter Results * (ABNORMAL) PSA, total and free (11/23/2018 11:25 AM EDT) Prostate Specific Antigen (Ultrasensitiv e) 7.27(H) 0.00 - 4.00 ng/mL [facility] Prostate Specific Antigen, Free 0.8 ng/mL [facility] PSA % Free 12 % [facility] Comment: Probability of finding BACTERIOLOGIST FISHERY on needle biopsy by age in years: % fPSA ? 50-59yrs ? 60-69yrs ? >=70yrs <=10 ? 49.2 ? 57.5 ? 64.5 11-18 ?26.9 ? 33.9 ? 40.8 19-25 ?18.2 ? 23.9 ? 29.7 >25 ? 9.1 ? 12.2 ? 15.8 Blood specimen (specimen) 11/23/2018 11:25 AM EDT 11/23/2018 11:32 AM EDT Narrative Resulting Agency Comment Spec In Lab Tobias Mcginnis MD CHEMISTRY ORDERABL ES [facility] [place] [address] documented in this encounter Visit Diagnoses Diagnosis Elevated PSA Elevated prostate specific antigen (PSA) documented in this encounter Care Teams Gas Plumber Relationship Specialty Start Date End Date Reji Adams MD [facility] GENER[facility] [place] [address] PCP - General General Internal Medicine 07/13/15 documented as of this encounter
--- OUTSIDE RECORDS SUMMARY | 2024-07-09 11:13 | XMS_ITS | Encounter Summary ---
Author Organization [facility] [place] [address] Care Team Providers Care Puttying And Calking Supervisor Name Role Phone Reji Adams MD Primary Care Provider [phone] Reason for Visit * Reason Onset Date Comments Medication Refill 11/23/2018 Encounter Details Date Type Department Care Team (Late st Contact Info) Description 11/23/2018 Refill Internal Medicine at [address] [address] Reji Adams MD [facility] [place] [address] Social History Tobacco Use Types Packs/Day Years [...] 11:30 AM EDT Office [place] [address] Charline Ziegler MD [facility] [place] [address] documented as of this encounter Visit Diagnoses Not on filedocumented in this encounter Care Teams Puttying And Calking Supervisor Relationship Specialty Start Date End Date Reji Adams MD [facility] [place] [address] PCP - General General Internal Medicine 07/13/15 documented as of this encounter
--- OUTSIDE RECORDS SUMMARY | 2024-07-09 11:13 | XMS_ITS | Encounter Summary ---
Author Organization [facility] Address [facility] [place] [address] Care Team Providers Care Field Reimbursement Manager Name Role Phone Reji Adams MD Primary Care Provider [phone] Encounter Details Date Type Department Care Team (Late Contact Info) Description 12/17/2018 [place] [address] Tobias Mcginnis MD [facility] [place] [address] Social History Tobacco Use Types Packs/Day Years [...] encounter Miscellaneous Notes * Telephone Encounter - Tobias Mcginnis MD - 12/17/2018 9:54 AM EDT I called with MR results that show an anterior P5 lesion. I recommended Fusion biopsy. I will schedule at a mutually convenient time. documented in this encounter Plan of Treatment Upcoming Encounters Date Type Department Care Team (Late st Contact Info) Description 12/15/2024 11:30 AM EDT Office [place] [address] Charline Ziegler MD [facility] [place] [address] documented as of this encounter Visit Diagnoses Not on filedocumented in this encounter Care Teams Field Reimbursement Manager Relationship Specialty Start Date End Date Reji Adams MD [facility] GENERAL [place] [address] PCP - General General Internal Medicine 07/13/15 documented as of this encounter
--- OUTSIDE RECORDS SUMMARY | 2024-07-09 11:13 | XMS_ITS | Encounter Summary ---
Author Organization [facility] Address [facility] [place] [address] Care Team Providers Care Business Performance Analyst Name Role Phone Reji Adams MD Primary Care Provider [phone] Encounter Details Date Type Department Care Team (Late st Contact Info) Description 02/08/2019 10:00 AM EDT Procedure visit Hematology [place] [address] Tobias Mcginnis MD [facility] [place] [address] Elevated PSA Social History Tobacco Use Types [...] Sign Reading Time Taken Comments Blood Pressure 108/74 02/08/2019 10:28 AM EDT Pulse 65 02/08/2019 10:28 AM EDT Temperature 36.5 ??C (97.7 ??F) 02/08/2019 10:28 AM E DT Respiratory Rate 18 02/08/2019 10:28 AM EDT Oxygen Saturation 100% 02/08/2019 10:28 AM EDT Inhaled Oxygen Concentration - - Weight 90.9 kg (200 lb 6.4 oz) 02/08/2019 10:28 AM EDT Height 180.3 cm (5' 11) 02/08/2019 10:28 AM EDT Body Mass Index 27.95 02/08/2019 10:28 AM EDT documented in this encounter Patient Instructions * Patient Instructions* Omaira Antonio RN - 02/08/2019 10:00 AM EDT PROSTATE BIOPSY DISCHARGE INFORMATION You will get a call next week with your biopsy pathology. Your pathology result may be released to your [facility] account before we have had a chance to contact you. You should feel free to check your [facility] if you would like to see if your pathology has been release. However, by doing so, you may receive your prostate biopsy results PRIOR to us discussing them with you. If you are not comfortable with receiving your pathology prior to our discussion, please de cesar from looking at your biopsy results until we can contact you. You should call your doctor if you experience any of the following: ?? You see blood in your urine, bowel movements, or semen outside of the timeframe listed below. ?? You have a temperature greater than 101.5 degrees. ?? You start to pass large clots of blood in your urine or it turns the color of tomato juice. ?? You are having increasing pain. Your doctor may be reached at weekdays from 8 AM to 5 PM. If you should develop any of these symptoms after these hours, please call the hospital multiple cut off saw operator at and ask to have the Urology Resident paged or report to the Emergency Department. What do I need to watch out for after the biopsy? ?? You will almost certainly have some blood in your urine. This will generally be gone within 48 hours. However, it may last on and off for up to two weeks. ?? You will almost certainly have some blood in your bowels. This will generally be gone within 48 hours. However, it may last on and off for up to two weeks. ?? You will almost certainly have some blood in your semen or sperm. This may last on and off for up to six weeks. ?? If you have been instructed to take an antibiotic in addition to the antibiotic given to you on the clinic day, please finish the remainder of any prescription ordered. Are there any restrictions after the prostate biopsy? ?? You should take it easy after the biopsy until the blood clears in your urine and stool. We suggest no heavy lifting, straining, or sports until after you stop seeing blood in the urine or stool. You should not have sexual activity for 48 hours after the biopsy. ?? As long as you feel okay, you should be able to drive yourself home from the biopsy. ?? We recommend that you bring someone with you but this is not absolutely necessary. ?? You may resume aspirin and other medications containing aspirin or NSAIDS (Motrin, Advil, naprosyn, etc.) one week after your biopsy. ?? If you are on a blood thinner, such as Coumadin, heparin, or fragmin, please contact your Primary Care Provider after the procedure to see when they wish you to resume medications. It is importantyou do this because some medications will require a blood test as well. When will I get the results of the biopsy? The biopsy needs to be processed and examined by a pathologist. In general, this takes about a week. Your doctor will then either see you in the office or call you on the telephone to give you the results. If you have not heard a result within 10 days of your biopsy, please call your doctor. What happens if I am found to have prostate cancer? If you are found to have prostate cancer, your doctor will discuss what this means for you. Prostate cancer is very treatable and, in most cases, there are several good treatment options. You will begiven or sent a package of information about the treatment of prostate cancer. An appointment will be made for a follow-up visit one to two weeks after the biopsy result is given to you in order to discuss all the issues in more detail and arrange a treatment plan. What happens if the biopsy does not show prostate cancer? Your doctor will discuss the results of the biopsy with you. Your doctor will give you a recommendation regarding any necessary follow up. documented in this encounter Progress Notes * Omaira Antonio RN - 02/08/2019 10:00 AM EDT Prostate IPSS and BINH(Pt Entered): Today's answers and scores Prostate Scores and Responses 02/08/2019 Confidence, level - past 6 months Very High Penetration - past 6 months Almost always or always Penetration, maintain - past 6 months Almost always or always Erection, maintain - past 6 months Not difficult Sexual satisfaction - past 6 months Almost always or always Sexual Health in Men 25 Incomplete emptying Less than half the time Frequency Less than half the time Intermittency Less than 1 time in 5 Urgency Not at all Weak Stream Less than 1 time in 5 Straining Less than 1 time in 5 Nocturia 2 times Quality of life Delighted Total IPSS Score 9 (MODERATE LUTS) * Tobias Mcginnis MD - 02/08/2019 10:00 AM EDT Procedure Note Procedure: Transrectal ultrasound and prostate biopsy Surgeon: Tobias Mcginnis Preoperative Diagnosis: Elevated PSA, prior negative biopsy Post Operative Diagnosis: Successful Biopsy Complications: None Procedure: A time out procedure was performed. It was confirmed the patient had a urinanalysis that did not show evidence of a urinary infection prior to the biopsy. It was confirmed that the patient took Levaquin 500mg po ~ 1 hour ago FREDI revealed a small gland with no nodules The TRUS probe was inserted into the rectum and the prostate imaged in the sagittal and transverse dimensions. Prostate volume was 45 cc. The prostate was homogeneous. Prostate calcifications were observed at the junction of the peripheral and transition zones. Hypochoic areas: Anterior PZ at mid gland - c/w MR lesion #1 Rectum, periprostatic structures, visualized areas of the bladder, vas deferens and seminal vesicles all appeared normal Prostatic anaesthesia was achieved in the standard fashion. A series of prostatic biopsies were obtained from the lateral apex, mid,and base as well as mid sagittal apex, mid and base. Biopsies were obtained from both the right and left side of the prostate. Additional biopsies: MR Lesion / Hypoechoic area x3 A total of 15 biopsies were obtained. The patient tolerated the procedure without difficulty. I will contact him in about a weeks time with the results. He understands that if he does not hear from me or has any problems to contact my office. Tobias Mgcinnis documented in this encounter Plan of Treatment Upcoming Encounters Date Type Department Care Team (Late st Contact Info) Description 12/15/2024 11:30 AM EDT Office [place] [address] Charline Ziegler MD [facility] [place] [address] documented as of this encounter Visit Diagnoses Diagnosis Elevated PSA Elevated prostate specific antigen (PSA) documented in this encounter Administered Medications Inactive Administered Medications - up to 3 most recent administrations Medication Order MAR Action Action Date Dose Rate Site levoFLOXacin (LEVAQUIN) tablet 500 mg 500 mg, Oral, ONCE, 1 dose, On Fri02/08/19 at 1115, Routine Given 02/08/2019 10:35 AM EDT 500 mg documented in this encounter Care Teams Business Performance Analyst Relationship Specialty Start Date End Date Reji Adams MD [facility] GENERAL [place] [address] PCP - General General Internal Medicine 07/13/15 documented as of this encounter
--- OUTSIDE RECORDS SUMMARY | 2024-07-09 11:13 | XMS_ITS | Encounter Summary ---
Author Organization [facility] [place] [address] Care Team Providers Care Athletic Team Physician Name Role Phone Reji Adams MD Primary Care Provider [phone] Reason for Visit * Reason Onset Date Comments Medication Refill 08/25/2018 Encounter Details Date Type Department Care Team (Late st Contact Info) Description 08/25/2018 Refill Internal Medicine at [address] [address] Reji Adams MD [facility] [place] [address] Social History Tobacco Use Types Packs/Day Years [...] 11:30 AM EDT Office [place] [address] Charline Ziegler MD [facility] [place] [address] documented as of this encounter Visit Diagnoses Not on filedocumented in this encounter Care Teams Athletic Team Physician Relationship Specialty Start Date End Date Reji Adams MD [facility] [place] [address] PCP - General General Internal Medicine 07/13/15 documented as of this encounter
--- OUTSIDE RECORDS SUMMARY | 2024-07-09 11:13 | XMS_ITS | Encounter Summary ---
Author Organization [facility] [place] [address] Care Team Providers Care Stockroom Helper Name Role Phone Reji Adams MD Primary Care Provider [phone] Reason for Referral * Diagnostic Test (Routine) - Closed Specialty Diagnoses / Procedures Referred By Duglas arizmendi Referred To Contact Radiology Diagnoses Elevated PSA Procedures MRI Pelvis WWO(Prostate) Tobias Mcginnis MD [facility] [place] [address] [place] [address] Referral ID Status Reason Start Date Expiration Date V isits Requested Visits Authorized [id number] Closed Specialty Service Requested 11/30/2018 11/30/2019 1 1 Encounter Details Date Type Department Care Team (Late st Contact Info) Description 11/30/2018 Orders [place] [address] Tobias Mcginnis MD [facility] [place] [address] Elevated PSA Social History Tobacco Use Types [...] Progress Notes * Tobias Mcginnis MD - 11/30/2018 1:56 PM EDT I called with PSA result, still up, 7.3 with 12% free. We discussed options. Plan is for mpMRI and we will make a determination on what to do going forward based on the result. documented in this encounter Plan of Treatment Upcoming Encounters Date Type Department Care Team (Late st Contact Info) Description 12/15/2024 11:30 AM EDT Office Visit [place] [address] Charline Ziegler MD [facility] [place] [address] documented as of this encounter Results * MRI Pelvis WWO(Prostate) (12/16/2018 6:06 PM EDT) Anatomical Region Laterality Modality Pelvis Magnetic Resonan ce Impressions 12/17/2018 9:41 AM EDT Lesion 1 PZ: PI-RADS 5. Clinically significant cancer is highly likely to be present. T2 location: axial series 15, image 19; sagittal ??series 14, image 24. Segmented in UroNav. PI-RADS v2.1 Assessment Categories PI-RADS 1 -- Very low (clinically significant cancer is highly unlikely to be present) PI-RADS 2 -- Low (clinically significant cancer is unlikely to be present) PI-RADS 3 -- Intermediate (the presence of clinically significant cancer is equivocal) PI-RADS 4 -- High (clinically significant cancer is likely to be present) PI-RADS 5 -- Very high (clinically significant cancer is highly likely to be present) Thank you for letting us participate in the care of this patient. For questions regarding this report, please contact the number below. ? Narrative 12/17/2018 9:41 AM EDT EXAMINATION: MRI PELVIS WWO(PROSTATE) CLINICAL HISTORY: Elevated / rising PSA, low % free, prior negative biopsy PSA level: 8.11 Date of sextant biopsy:N/A [place] score: N/A TECHNIQUE: Multiparametric MRI of the prostate prior to and following IV administration of 19 cc of Dotarem contrast. ?? QUALITY: Meets PI-RADS technical criteria. COMPARISON: None FINDINGS: Prostate dimensions: 5.9 x 4.2 x 4.1cm. Estimated prostate volume: 46.38cc (X x Y x Z x 0.52) PSA density: 0.17 (PSA/prostate volume >0.15 susp, 0.25 highly susp) Peripheral zone: Lesion 1. Anterior peripheral zone at the base and mid gland T2: Circumscribed, homogenous moderately hypointense mass 1.5 x 0.9 cm axially, 1.2 cm craniocaudally. Minimal bulging of the prostate contour without gross extra prostatic extension. PI-RADs: 5. DWI: ??Focal markedly hypointense on ADC and markedly hyperintense on high b-value DWI; >1.5cm in greatest dimension. PI-RADs: 5. DCE-MRI: (+) focal early enhancement which corresponds to the suspicious finding on T2WI and/or DWI. ? Combined PI-RADs: 5. Transition zone: No focal lesions T2: Typical encapsulated and homogenous circumscribed nodules. PI-RADs: 1. DWI: ??No abnormality on ADC and high b-value DWI. PI-RADs: 1. DCE-MRI: ??(-) No early arterial enhancement.. ? Combined PI-RADs: 1. Extraprostatic disease: Seminal vesicle involvement:No Lymphadenopathy:No Sphincter involvement:No Bladder involvement:No Osseous metastases: No . Extraprostatic extension: No Other findings: None. Procedure Note Vamsi Skaggs MD - 12/17/2018 EXAMINATION: MRI PELVIS WWO(PROSTATE) CLINICAL HISTORY: Elevated / rising PSA, low % free, prior negativebiopsy PSA level: 8.11 Date of sextant biopsy:N/A [place] score: N/A TECHNIQUE: Multiparametric MRI of the prostate prior to and following IV administration of 19 cc of Dotarem contrast. QUALITY: Meets PI-RADS technical criteria. COMPARISON: None FINDINGS: Prostate dimensions: 5.9 x 4.2 x 4.1cm. Estimated prostate volume: 46.38cc (X x Y x Z x 0.52) PSA density: 0.17 (PSA/prostate volume >0.15 susp, 0.25 highly susp) Peripheral zone: Lesion 1. Anterior peripheral zone at the base and mid gland T2: Circumscribed, homogenous moderately hypointense mass 1.5 x 0.9 cmaxially, 1.2 cm craniocaudally. Minimal bulging of the prostate contour withoutgross extra prostatic extension. PI-RADs: 5. DWI: Focal markedly hypointense on ADC and markedly hyperintense onhigh b-value DWI; >1.5cm in greatest dimension. PI-RADs: 5. DCE-MRI: (+) focal early enhancement which corresponds to the suspiciousfinding on T2WI and/or DWI. Combined PI-RADs: 5. Transition zone: No focal lesions T2: Typical encapsulated and homogenous circumscribed nodules. PI-RADs: 1. DWI: No abnormality on ADC and high b-value DWI. PI-RADs: 1. DCE-MRI: (-) No early arterial enhancement.. Combined PI-RADs: 1. Extraprostatic disease: Seminal vesicle involvement:No Lymphadenopathy:No Sphincter involvement:No Bladder involvement:No Osseous metastases: No . Extraprostatic extension: No Other findings: None. IMPRESSION Lesion 1 PZ: PI-RADS 5. Clinically significant cancer is highly likely baltazar present. T2 location: axial series 15, image 19; sagittal series 14,image 24. Segmented in UroNav. PI-RADS v2.1 Assessment Categories PI-RADS 1 -- Very low (clinically significant cancer is highly unlikely baltazar present) PI-RADS 2 -- Low (clinically significant cancer is unlikely to bepresent) PI-RADS 3 -- Intermediate (the presence of clinically significant canceris equivocal) PI-RADS 4 -- High (clinically significant cancer is likely to bepresent) PI-RADS 5 -- Very high (clinically significant cancer is highly likely baltazar present) Thank you for letting us participate in the care of this patient. Forquestions regarding this report, please contact the number below. Electronically signed by: Vamsi Skaggs [facility]([phone]), at 12/17/2018 9:41 AM Tobias Mcginnis MD IMG MRI ORDERABLES documented in this encounter Visit Diagnoses Diagnosis Elevated PSA Elevated prostate specific antigen (PSA) Elevated PSA Elevated prostate specific antigen (PSA) documented in this encounter Care Teams Stockroom Helper Relationship Specialty Start Date End Date Reji Adams MD [facility] [place] [address] PCP - General General Internal Medicine 07/13/15 documented as of this encounter
--- OUTSIDE RECORDS SUMMARY | 2024-07-09 11:13 | XMS_ITS | Encounter Summary ---
Author Organization [facility] Address [facility] [place] [address] Care Team Providers Care Quality Supervisor Name Role Phone Reji Adams MD Primary Care Provider [phone] Reason for Visit * Reason Comments Follow-up Patient is here toda y for a follow up appointment. Encounter Details Date Type Department Care Team (Late st Contact Info) Description 05/08/2018 2:20 PM EDT Office Visit Internal Medicine at [address] [address] Reji Adams MD [facility] [place] [address] Thyroiditis; Hyperlipidemia, unspecified hyperlipidemia type; Anxiety; Primary osteoarthritis of left knee Social History [...] Sign Reading Time Taken Comments Blood Pressure 109/74 05/08/2018 2:07 PM EDT Pulse 65 05/08/2018 2:07 PM EDT Temperature 36.8 ??C (98.3 ??F) 05/08/2018 2:07 PM ED T Respiratory Rate - - Oxygen Saturation 100% 05/08/2018 2:07 PM EDT Inhaled Oxygen Concentration - - Weight 90.7 kg (200 lb) 05/08/2018 2:07 PM EDT W reggie valdes Height 179.1 cm (5' 10.51) 05/08/2018 2:07 PM E DT Body Mass Index 28.28 05/08/2018 2:07 PM EDT documented in this encounter Progress Notes * Reji Adams MD - 05/08/2018 2:20 PM EDT ESTABLISHED PATIENT VISIT I. HISTORY a. Reason(s) for Visit: Ken Mckeon 72 y.o. male who presents today due to complaint(s) of: Chief Complaint Patient presents with ??? Follow-up Patient is here today for a follow up appointment. b. History of Present Illness: Anxiety: Started on clonazepam 0.5mg bid 03/17/18 but never filled and continued on alprazolam 0.25mg tid. A lot of stress. Has declined SSRIS multiple times in the past. Was to trial to taper down onXanax. Was not able to taper because of family stress. HLD: on pravastatin 20mg daily with LDL under good control at 79. No side effects. Thyroiditis: seen by Dr Olivas. TFTs normal at this point but still with positive Anti TPO abs. c. Review of Systems: Constitutional - no [...] PMH Patient Active Problem List Diagnosis ??? Trigger finger, left ring finger ??? Chronic left shoulder pain ??? Arthritis of right elbow ??? Asymmetrical sensorineural hearing loss ??? Otalgia ??? Otalgia of left ear ??? Panic attack ??? Shoulder pain, bilateral ??? Right arm [...] Right knee in 2007 Soc: Social History Substance Use Topics ??? Smoking status: Never Smoker ??? Smokeless tobacco: Current User Types: Chew Comment: 3 cans/ week. ??? Alcohol use 0.0 - 0.6 oz/week 0 - 1 Cans of beer per week Comment: rarely II. PHYSICAL EXAM: BP 109/74 (BP Location (NBP): Left arm, Patient Position: Sitting, BP Cuff Sizes: Large Adult (32-43 cm)) Pulse 65 Temp 36.8 ??C (98.3 ??F) (Oral) Ht 179.1 cm (5' 10.51) Wt 90.7 kg (200 lb) Comment: With shoes SpO2 100% BMI 28.28 kg/m2 General - No acute distress, conversing without difficulty. ENT - oropharynx without lesions. Eyes - EOMI. No scleral icterus Extremities - No clubbing, cyanosis or edema. III. ASSESSMENT/PLAN:Ken Mckeon 72 y.o. male presenting for f/u. Ken was seen today for follow-up . Diagnoses and all orders for this visit: Thyroiditis - Recheck TSH, free t4 in 3 mths Hyperlipidemia, unspecified hyperlipidemia type - Cont pravastatin Anxiety - Cont prn xanax OA - meloxicam (MOBIC) 7.5 mg Tablet; Take 1 tablet by mouth daily as needed for Pain. Meds reconciled documented in this encounter Plan of Treatment Upcoming Encounters Date Type Department Care Team (Late st Contact Info) Description 12/15/2024 11:30 AM EDT Office [place] [address] Charline Ziegler MD [facility] [place] [address] documented as of this encounter Visit Diagnoses Diagnosis Thyroiditis Thyroiditis, unspecified Hyperlipidemia, unspecified hyperlipidemia type Anxiety Anxiety state, unspecified Primary osteoarthritis of left knee Primary localized osteoarthrosis, lower leg documented in this encounter Care Teams Quality Supervisor Relationship Specialty Start Date End Date Reji Adasm MD [facility] GENERAL [place] [address] PCP - General General Internal Medicine 07/13/15 documented as of this encounter
--- OUTSIDE RECORDS SUMMARY | 2024-07-09 11:13 | XMS_ITS | Encounter Summary ---
Author Organization [facility] [place] [address] Care Team Providers Care Controls Project Engineer Name Role Phone Reji Adams MD Primary Care Provider [phone] Encounter Details Date Type Department Care Team (Late st Contact Info) Description 12/01/2018 [place] [phone] Tobias Mcginnis MD [facility] [address] Social History Tobacco Use Types Packs/Day Years [...] 11:30 AM EDT Office [place] [phone] Charline Ziegler MD [facility] [place] [address] documented as of this encounter Visit Diagnoses Not on filedocumented in this encounter Care Teams Controls Project Engineer Relationship Specialty Start Date End Date Reji Adams MD [facility] INTER[facility] [place] [address] PCP - General General Internal Medicine 07/13/15 documented as of this encounter
--- OUTSIDE RECORDS SUMMARY | 2024-07-09 11:13 | XMS_ITS | Encounter Summary ---
Author Organization [facility] [place] [address] Care Team Providers Care Farm Crops Teacher Name Role Phone Reji Adams MD Primary Care Provider [phone] Encounter Details Date Type Department Care Team (Late st Contact Info) Description 02/03/2019 10:15 AM EDT Laboratory Appointment Lab [address] [place] [phone] Elevated PSA Social History Tobacco Use Types [...] EDT Office [place] [phone] Charline Ziegler MD [facility] [place] [address] documented as of this encounter Procedures Procedure Name Priority Date/Time Associated Diagnosis Comments PSA (ULTRASENSITIVE) Routine 02/03/2019 10:14 AM EDT Elevated PSA documented in this encounter Results * (ABNORMAL) PSA (02/03/2019 10:14 AM EDT) Prostate Specific Antigen (Ultrasensitiv e) 7.20(H) 0.00 - 4.00 ng/mL [facility] Blood specimen (specimen) 02/03/2019 10:14 AM EDT 02/03/2019 10:19 AM EDT Narrative Resulting Agency Comment Spec In Lab Tobias Mcginnis MD CHEMISTRY ORDERABL ES [facility] [place] [address] documented in this encounter Visit Diagnoses Diagnosis Elevated PSA Elevated prostate specific antigen (PSA) documented in this encounter Care Teams Farm Crops Teacher Relationship Specialty Start Date End Date Reji Adams MD [facility] [place] [address] PCP - General General Internal Medicine 07/13/15 documented as of this encounter
--- OUTSIDE RECORDS SUMMARY | 2024-07-09 11:13 | XMS_ITS | Encounter Summary ---
Author Organization [facility] [place] [address] Care Team Providers Care Drafter Electromechanical Name Role Phone Reji Adams MD Primary Care Provider [phone] Reason for Referral * Diagnostic Test (Routine) - Closed Specialty Diagnoses / Procedures Referred By Contac t Referred To Contact Radiology Diagnoses Paresthesia Right arm pain Procedures MRI Cervical Spine wwo Contrast Bright Casanova MD [address] [place] [address] [place] [address] Referral ID Status Reason Start Date Expiration Date V isits Requested Visits Authorized [id number] Closed Specialty Service Requested 11/30/2018 11/30/2019 1 1 Reason for Visit * Diagnostic Test (Routine) - Closed Specialty Diagnoses / Procedures Referred By Contac t Referred To Contact Radiology Diagnoses Paresthesia Right arm pain Procedures MRI Cervical Spine wwo Contrast Bright Casanova MD [address] [place] [address] [facility] [place] [address] Referral ID Status Reason Start Date Expiration Date V isits Requested Visits Authorized [id number] Closed Specialty Service Requested 11/30/2018 11/30/2019 1 1 Encounter Details Date Type Department Care Team (Latest Contact Info) Description 12/28/2018 4:24 PM EDT - 12/28/2018 11:59 PM EDT [place] [address] Bright Casanova MD Paresthesia; Right arm pain Discharge Disposition: Home Social History Tobacco [...] 3 times daily as needed for Sleep. 90 tablet 12/24/2018 02/03/2019 pravastatin (PRAVACHOL) 20 mg Tablet Take 1 tablet by mouth daily. 90 tablet 3 11/26/2018 08/26/2019 celecoxib (CELEBREX) 100 mg Capsule Take 100 mg by mouth daily as needed for Pain. 02/01/2019 MALCOLM EXTRACT ORAL Take by mouth. 11/09/19 aspirin 81 mg Tablet, Delayed Release (E.C.) Take 81 mg by mouth daily. 03/17/2023 Saw [place] 500 mg capsule Take 500 mg by mouth daily. 03/14/2020 documented as of this encounter Plan of Treatment Upcoming Encounters Date Type Department Care Team (Late st Contact Info) Description 12/15/2024 11:30 AM EDT Office [place] [address] Charline Ziegler MD [facility] [place] [address] documented as of this encounter Procedures Procedure Name Priority Date/Time Associated Diagnosis Comments MRI CERVICAL SPINE WITH/WO CONTRAST Routine 12/28/2018 5:40 PM EDT Paresthesia Right arm pain documented in this encounter Results * MRI Cervical Spine wwo Contrast (12/28/2018 5:40 PM EDT) Anatomical Region Laterality Modality C-spine Magnetic Resonan ce Impressions 12/29/2018 8:07 AM EDT Similar pattern of changes of cervical spondylosis described in detail the body the report. Similar appearance of disc extrusion at C7-T1. Similar pattern of foraminal narrowing at multiple levels described in detail the body the report. Similar appearance of cord signal abnormalities as described. Thank you for letting us participate in the care of this patient. For questions regarding this report, please contact the number below. ? Electronically signed by: Frantz Quick MD, [facility] ([phone]), at 12/29/2018 8:07 AM Narrative 12/29/2018 8:07 AM EDT EXAMINATION: MRI CERVICAL SPINE WWO CONTRAST CLINICAL HISTORY: right arm pain, numbness, tingling, hx spinal cord injury, prior cervical surgery OUTSIDE ORDER IN SCANNED DOCS TECHNIQUE: MRI of the cervical spine was performed before and after the intravenous administration of 18cc Dotarem. COMPARISON: 11/15/[address] 11/29/2015 FINDINGS: Similar appearance of anterior fusion C3-4 and C4-5. There is MRI evidence of mature fusion corresponding to the osseous bridging seen on CT dated 11/29/2015. There is reversal of normal lordosis in the lower cervical spine similar to prior examination. Vertebral bodies are normal in height. No aggressive marrow lesions. Prevertebral soft tissues are within normal limits. The craniocervical junction is within normal limits. There is T2 hyperintensity projecting the right lateral margin of the cord at the C4 level best appreciated on axial images 18 and 19 of series 5, similar to prior exam. There is similar appearance of T2 hyperintensity projecting in the posterior cord eccentric to the right at the C4-5 level image 22 series 5. No new cord signal abnormality. . There is no abnormal enhancement post gadolinium. There is mild anterolisthesis of C5 on C6, similar to prior exam. Disc space degenerative change with disc space narrowing and endplate proliferative changes at C7-T1 greater than C6-7 also similar to prior exam. Findings at specific levels: C2-3: Mild overall canal narrowing secondary to buckling of ligamentum flavum and mild central disc protrusion. Moderate right and mild left foraminal narrowing due to asymmetric uncinate proliferative change and facet arthropathy. C3-4: Fused level. Posterior osseous ridge with moderate overall canal narrowing. There is moderate bilateral foraminal narrowing. C4-5: Posterior osseous ridge at this fused level. Mild overall canal stenosis present. Mild foraminal narrowing. C5-6: Mild to moderate overall canal narrowing secondary to anterolisthesis and buckling of ligamentum flavum. There is moderate right and moderate to severe left foraminal narrowing. C6-C7: Mild overall canal stenosis secondary to uncinate proliferative change and mild central disc protrusion. Severe right and mild to moderate left foraminal narrowing. C7-T1: Moderate overall canal stenosis secondary to broad central disc extrusion extending cephalad, facet arthropathy and asymmetric uncinate changes greater on the left. Severe left and moderate right foraminal narrowing. Procedure Note Frantz Reyna MD - 12/29/2018 EXAMINATION: MRI CERVICAL SPINE WWO CONTRAST CLINICAL HISTORY: right arm pain, numbness, tingling, hx spinal cordinjury, prior cervical surgery OUTSIDE ORDER IN SCANNED DOCS TECHNIQUE: MRI of the cervical spine was performed before and after the intravenous administration of 18cc Dotarem. COMPARISON: 11/15/[address] 11/29/2015 FINDINGS: Similar appearance of anterior fusion C3-4 and C4-5. There is MRI evidenceof mature fusion corresponding to the osseous bridging seen on CT dated11/29/2015. There is reversal of normal lordosis in the lower cervical spine similarto prior examination. Vertebral bodies are normal in height. No aggressive marrow lesions. Prevertebral soft tissues are within normal limits. The craniocervicaljunction is within normal limits. There is T2 hyperintensity projecting the right lateral margin of the cordat the C4 level best appreciated on axial images 18 and 19 of series 5,similar to prior exam. There is similar appearance of T2 hyperintensity projecting in theposterior cord eccentric to the right at the C4-5 level image 22 series 5. No new cord signal abnormality. . There is no abnormal enhancement post gadolinium. There is mild anterolisthesis of C5 on C6, similar to prior exam. Discspace degenerative change with disc space narrowing and endplate proliferativechanges at C7-T1 greater than C6-7 also similar to prior exam. Findings at specific levels: C2-3: Mild overall canal narrowing secondaryto buckling of ligamentum flavum and mild central disc protrusion. Moderateright and mild left foraminal narrowing due to asymmetric uncinateproliferative change and facet arthropathy. C3-4: Fused level. Posterior osseous ridge with moderate overall canal narrowing. There is moderate bilateral foraminal narrowing. C4-5: Posterior osseous ridge at this fused level. Mild overall canalstenosis present. Mild foraminal narrowing. C5-6: Mild to moderate overall canal narrowing secondary toanterolisthesis and buckling of ligamentum flavum. There is moderate right and moderate tosevere left foraminal narrowing. C6-C7: Mild overall canal stenosis secondary to uncinate proliferativechange and mild central disc protrusion. Severe right and mild to moderate left foraminal narrowing. C7-T1: Moderate overall canal stenosis secondary to broad central discextrusion extending cephalad, facet arthropathy and asymmetric uncinate changesgreater on the left. Severe left and moderate right foraminal narrowing. IMPRESSION Similar pattern of changes of cervical spondylosis described in detail thebody the report. Similar appearance of disc extrusion at C7-T1. Similar pattern of foraminal narrowing at multiple levels described indetail the body the report. Similar appearance of cord signal abnormalities as described. Thank you for letting us participate in the care of this patient. Forquestions regarding this report, please contact the number below. Electronically signed by: Frantz Quick MD, [facility]([phone]), at 12/29/2018 8:07 AM Bright Casanova MD IM MRI ORDERABLES documented in this encounter Visit Diagnoses Diagnosis Paresthesia Disturbance of skin sensation Right arm pain Pain in limb documented in this encounter Administered Medications Inactive Administered Medications - up to 3 most recent administrations Medication Order MAR Action Action Date Dose Rate Site gadoterate meglumine (DOTAREM) 0.5 mmol/mL (376.9 mg/mL) injection 0-100 mL 0-100 mL, Intravenous, ONCE PRN, 1 dose, Starting on Fri12/28/18 at 1740, Until Fri12/28/18 at 1740, Per Protocol, Radiology Contrast, Routine Given 12/28/2018 5:40 PM EDT 18 mLs documented in this encounter Care Teams Drafter Electromechanical Relationship Specialty Start Date End Date Reji Adams MD [facility] [place] [address] PCP - General General Internal Medicine 07/13/15 documented as of this encounter
--- OUTSIDE RECORDS SUMMARY | 2024-07-09 11:13 | XMS_ITS | Encounter Summary ---
Author Organization [facility] [place] [address] Care Team Providers Care Criminal Investigator Name Role Phone Reji Adams MD Primary Care Provider [phone] Reason for Visit * Reason Comments Follow-up Encounter Details Date Type Department Care Team (Late st Contact Info) Description 11/30/2018 2:20 PM EDT Office Visit Internal Medicine at [address] [address] Reji Adams MD [facility] [place] [address] Luana's thyroiditis; Hyperlipidemia, unspecified hyperlipidemia type; Anxiety; Elevated PSA Social History Tobacco Use Types [...] Sign Reading Time Taken Comments Blood Pressure 120/70 11/30/2018 2:16 PM EDT Pulse 69 11/30/2018 2:16 PM EDT Temperature - - Respiratory Rate 16 11/30/2018 2:16 PM EDT Oxygen Saturation 99% 11/30/2018 2:16 PM EDT Inhaled Oxygen Concentration - - Weight 93 kg (205 lb) 11/30/2018 2:16 PM EDT Height - - Body Mass Index 29 10/12/2018 3:45 PM EDT documented in this encounter Progress Notes * Reji Adams MD - 11/30/2018 2:20 PM EDT ESTABLISHED PATIENT VISIT I. HISTORY a. Reason(s) for Visit: Ken Mckeon 73 y.o. male who presents today due to complaint(s) of: Chief Complaint Patient presents with ??? Follow-up b. History of Present Illness: Anxiety: On alprazolam 0.25mg tid. A lot of stress. Has declined SSRIS multiple times in the past. HLD: on pravastatin 20mg daily with LDL under good control at 79. No side effects. Thyroiditis: TSH 1.66 07/2018 Elevated PSA: Planning to get an MRI and possible bx pending results. c. Review of Systems: Constitutional - no [...] oz Comment: rarely II. PHYSICAL EXAM: BP 120/70 (BP Location (NBP): Left arm, Patient Position: Sitting, BP Cuff Sizes: Adult (25-34 cm)) Pulse 69 Resp 16 Wt 93 kg (205 lb) SpO2 99% BMI 29.00 kg/m?? General - No acute distress, conversing without difficulty. ENT - oropharynx without lesions. Eyes - EOMI. No scleral icterus Extremities - No clubbing, cyanosis or edema. III. ASSESSMENT/PLAN:Ken Mckeon 73 y.o. male presenting for f/u. Ken was seen today for follow-up . Diagnoses and all orders for this visit: Luana's thyroiditis - Check TSh at f/u Hyperlipidemia, unspecified hyperlipidemia type - Cont statin Anxiety - Will cont with alprazolam but discussed concerns and if any escalation of use then would need to taper off. - Declines SSRI Elevated PSA - Agree with MRI F/u 3 mths documented in this encounter Plan of Treatment Upcoming Encounters Date Type Department Care Team (Late st Contact Info) Description 12/15/2024 11:30 AM EDT Office [place] [address] Charline Ziegler MD [facility] [place] [address] documented as of this encounter Visit Diagnoses Diagnosis Luana's thyroiditis Chronic lymphocytic thyroiditis Hyperlipidemia, unspecified hyperlipidemia type Anxiety Anxiety state, unspecified Elevated PSA Elevated prostate specific antigen (PSA) documented in this encounter Care Teams Criminal Investigator Relationship Specialty Start Date End Date Reji Adams MD [facility] [place] [address] PCP - General General Internal Medicine 07/13/15 documented as of this encounter
--- OUTSIDE RECORDS SUMMARY | 2024-07-09 11:13 | XMS_ITS | Encounter Summary ---
Author Organization [facility] Address [facility] [place] [address] Care Team Providers Care Sister Superior Name Role Phone Reji Adams MD Primary Care Provider [phone] Encounter Details Date Type Department Care Team (Late st Contact Info) Description 10/26/2018 11:20 AM EDT [place] [address] Tobias Mcginnis MD [facility] [address] Elevated PSA Social History Tobacco Use Types [...] Sign Reading Time Taken Comments Blood Pressure 117/74 10/26/2018 11:21 AM EDT Pulse 77 10/26/2018 11:21 AM EDT Temperature 36.6 ??C (97.9 ??F) 10/26/2018 11:21 AM E DT Respiratory Rate 16 10/26/2018 11:21 AM EDT Oxygen Saturation 98% 10/26/2018 11:21 AM EDT Inhaled Oxygen Concentration - - Weight - - Height - - Body Mass Index - - documented in this encounter Progress Notes * Tobias Mcginnis MD - 10/26/2018 11:20 AM EDT Urologic Outpatient Consult Note HPI: Ken Mckeon is a 73 y.o. year old male referred for LUTS, Fatigue, erectile dysfunction andan elevated PSA Seen initially 02/2017 Symptoms started 3-4 weeks. [...] notes that voiding is worse with this. Pt reports no recent changes in his voiding, he does not have nocturia/frequency/urgency. IPSS 19/35 - pleased PSA found to be elevated and persistently elevated on recheck Prostate IPSS and BINH(Pt Entered): last 5 values Prostate Today's Scores 04/07/2017 Sexual Health Inventory for Men 22 International Prostate Symptom Score 17 (Moderate LUTS) PSA History: 06/2015 - 3.4 02/2017 - 6.19 03/2018 - TRUS biopsy negative 09/2017 - 6.62 04/2018 - 6.59 10/2018 - 8.11 (12% free) He presents today in follow-up. No changes since last visit. Still taking in 80+ Oz fluid per day. He does stop drinking around 3pm to help with nocturia. PMHx: Past Medical History: Diagnosis Date ??? BPH (benign prostatic hyperplasia) ??? Neck pain 08/24/2012 ??? OA (osteoarthritis) of knee right PSHx: Past Surgical History: Procedure Laterality Date ??? CREATED BY INTERFACE Past surg hx. Procedure Date: 09/19/2010 ??? PRO COLONOSCOPY, DIAGNOSTIC 09/07/2013 COLONOSCOPY, DIAGNOSTIC performed by Ximena Gu MD at [facility] ENDOSCOPY ??? PRO LIGATE/STRIP LONG SAPH VEIN BELW SEP-FEM JUNC 06/02/2012 LIGATION\DIV\STRIP GREATER SAPHENOUS VEIN performed by BEATRICE RODRÍGUEZ at [facility] MAIN OR ??? PRO PHLEB VEINS - EXTREM - TO 20 06/02/2012 STAB PHLEBECTOMY KARLI VEINS, EXTREMITY 10-20 INCISIONS-SANTI performed by BEATRICE RODRÍGUEZ at [facility] MAIN OR ??? PRO UPPER GI ENDOSCOPY, BIOPSY N/A 09/02/2017 EGD WITH BIOPSY (WRVU 2.49) performed by Rahul Escobar MD at [facility] ENDOSCOPY SOCHx: Social History Socioeconomic History ??? Marital [...] file Gets together: Not on file Attends oriental orthodox service: Not on file Active member of [...] gait abnormalities Neurologic: no obvious abnormalities FREDI deferred Urinalysis: Negative Imaging:NA Impression: #1 Elevated PSA with normal FREDI s/p negative biopsy 03/2018 #2 Irritative lower urinary tract symptoms, stable, not terribly bothersome, likley related to polydipsia Plan/Recommendations: # Repeat PSA / %Free after 72H abstinence (I will call with results) if still concerning we will get mpMRI 20 minutes spent in counseling and coordination of care documented in this encounter Plan of Treatment Upcoming Encounters Date Type Department Care Team (Late st Contact Info) Description 12/15/2024 11:30 AM EDT Office [place] [phone] Charline Ziegler MD [facility] [place] [address] documented as of this encounter Results * (ABNORMAL) PSA, total and free (11/23/2018 11:25 AM EDT) Prostate Specific Antigen (Ultrasensitiv e) 7.27(H) 0.00 - 4.00 ng/mL [facility] Prostate Specific Antigen, Free 0.8 ng/mL [facility] PSA % Free 12 % [facility] Comment: Probability of finding AEROBICS TEACHER on needle biopsy by age in years: [...] Lab Tobias Mcginnis MD CHEMISTRY ORDERABL ES Performing Organization Address City/State/[facility] Co de Phone Number [facility] [place] [address] documented in this encounter Visit Diagnoses Diagnosis Elevated PSA Elevated prostate specific antigen (PSA) documented in this encounter Care Teams Sister Superior Relationship Specialty Start Date End Date Reji Adams MD [facility] GENER[facility] [place] [address] PCP - General General Internal Medicine 07/13/15 documented as of this encounter
--- OUTSIDE RECORDS SUMMARY | 2024-07-09 11:13 | XMS_ITS | Encounter Summary ---
Author Organization [facility] [place] [address] Care Team Providers Care Pattern Room Attendant Name Role Phone Reji Adams MD Primary Care Provider [phone] Encounter Details Date Type Department Care Team (Late st Contact Info) Description 07/29/2018 Orders Only Internal Medicine at [address] [address] Reji Adams MD [facility] [place] [address] Luana's thyroiditis Social History Tobacco Use Types [...] 11:30 AM EDT Office [place] [address] Charline Ziegler MD [facility] [place] [address] documented as of this encounter Results * T4, free (07/30/2018 12:54 PM EST) Free T4 1.16 0.93 - 1.70 ng/dL [facility] Blood specimen (specimen) 07/30/2018 12:54 PM EST 07/30/2018 1:05 PM EST Narrative Resulting Agency Comment Spec In Lab Reji Adams MD CHEMISTRY ORDERABLES Performing Organization Address [facility] Co de Phone Number [facility] [place] [address] * (ABNORMAL) Thyroid peroxidase antibody (07/30/2018 12:54 PM EST) Thyroperoxidase Ab 60(H) <=34 IU/mL [facility] Blood specimen (specimen) 07/30/2018 12:54 PM EST 07/31/2018 7:32 AM EST Narrative Resulting Agency Comment Spec In Lab Reji Adams MD IMMUNOLOGY ORDERABLE S Performing Organization Address [facility] Co de Phone Number [facility] [place] [address] * TSH (07/30/2018 12:54 PM EST) Thyroid Stimulating Hormone 1.66 0.27 - 4.20 mlU/ML [facility] Blood specimen (specimen) 07/30/2018 12:54 PM EST 07/30/2018 1:05 PM EST Narrative Resulting Agency Comment Spec In Lab Reji Adams MD CHEMISTRY ORDERABLES Performing Organization Address [facility] Co de Phone Number [facility] [place] [address] documented in this encounter Visit Diagnoses Diagnosis Luana's thyroiditis Chronic lymphocytic thyroiditis documented in this encounter Care Teams Pattern Room Attendant Relationship Specialty Start Date End Date Reji Adams MD [facility] [place] [address] PCP - General General Internal Medicine 07/13/15 documented as of this encounter
--- OUTSIDE RECORDS SUMMARY | 2024-07-09 11:13 | XMS_ITS | Encounter Summary ---
Author Organization [facility] Address [facility] [place] [address] Care Team Providers Care Unemployment Specialist Name Role Phone Reji Adams MD Primary Care Provider [phone] Reason for Visit * Reason Comments Other hearing loss, interm ittent ear pain left ear * Consultation (Routine) - Closed Specialty Diagnoses / Procedures Referred By Duglas arizmendi Referred To Contact Otolaryngology Diagnoses Otalgia, unspecified laterality Sensorineural hearing loss (SNHL), unspecified laterality Reji Adams MD [facility] GENER[facility] [place] [address] Mary Ny MD [facility] [place] [address] Referral ID Status Reason Start Date Expiration Date V isits Requested Visits Authorized [id number] Closed Consult, Test & Treat 10/15/2018 10/15/2019 1 1 Encounter Details Date Type Department Care Team (Latest Contact Info) Description 12/28/2018 2:40 PM EDT Office Visit [place] [address] Mary Ny MD [facility] [place] [address] Asymmetrical sensorineural hearing loss; Left ear pain Social History Tobacco Use [...] - Inhaled Oxygen Concentration - - Weight 93.4 kg (206 lb) 12/28/2018 2:20 PM EDT Height 179.1 cm (5' 10.5) 12/28/2018 2:20 PM ED T Body Mass Index 29.14 12/28/2018 2:20 PM EDT documented in this encounter Progress Notes * Mary Ny MD - 12/28/2018 2:40 PM EDT [facility] Otolaryngology - Head and Neck Surgery Mary Ny MD 12/28/18 2:34 PM [place] [address] Office Patient Name: Ken Mckeon Date of : 1945 PCP: Reji Adams MD Chief Complaint: f/u left otalgia History of Present Illness: Ken Mckeon is a 73 y.o. year old male seen in follow up. Was seen last by myself in 03/2017 withchronic left otalgia. Workup included an audiogram that demonstrated sensorineural hearing loss on the left. MRI was normal. It was felt that his pain/symptoms were likely due to TMJ arthralgia or other musculoskeletal component. Patient has not seen oral surgery or dentistry in regards to this. His symptoms are the same. Still with occasional pain behind the ramus of the mandible on the left going up to his ear. No dysphagia or odynophagia. No vision changes. Is having some problems with c-spine radiculopathy as well. No vertigo or dizziness. No hearing changes. Otherwise doing ok. 10 point Review of Systems was normal except for pertinent positives and negatives included in the History of Present Illness. Past Medical and Surgical History Patient Active Problem List Diagnosis Code ??? [...] ??? Shoulder pain, bilateral M25.511, M25.512 ??? 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 Chronic left shoulder pain M25.512, G89.29 ??? 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 Trigger finger, left ring finger M65.342 ??? S/P rotator cuff repair Z98.890 Current Outpatient Medications on File Prior to Visit Medication Sig Dispense Refill ??? ALPRAZolam (XANAX) 0.25 mg Tablet Take 1 tablet by mouth 3 times daily as needed for Sleep. 90 tablet 0 ??? pravastatin (PRAVACHOL) 20 mg Tablet Take 1 tablet by mouth daily. 90 tablet 3 ??? celecoxib (CELEBREX) 100 mg Capsule Take 100 mg by mouth daily as needed for Pain. ??? MALCOLM EXTRACT ORAL Take by mouth. ??? acetaminophen (TYLENOL ARTHRITIS PAIN) 650 mg Tablet Sustained Release Take 650 mg by mouth every 8 hours as needed for Pain. Do not exceed 6 tabs in 24 hours ??? aspirin 81 mg Tablet, Delayed Release (E.C.) Take 81 mg by mouth daily. ??? multivitamin (THERAGRAN) tablet Take 1 tablet by mouth daily. ??? Saw [place] 500 mg capsule Take 500 mg by mouth daily. No current facility-administered medications on file prior to visit. Allergies: Penicillins; Betamethasone; and Dexamethasone Surgical History: Past Surgical History: Procedure Laterality Date ??? [...] MD at [facility] ENDOSCOPY Family and Social History Family History: Family History Problem Relation Age of Onset ??? Cancer Mother bone ??? Diabetes Father ??? Cancer Father testicular Social History: [place] [address] Social History Socioeconomic History ??? Marital status: [...] file Gets together: Not on file Attends mormonism service: Not on file Active member of [...] Narrative ??? Not on file Physical Exam Temperature: Heart Rate: Blood Pressure: Respiratory Rate: SpO2: General: Age appropriate, healthy appearing, well-groomed, independently mobile. Communicates easily, speech clear, voice is strong. Awake, alert, and oriented to person, place and time. Affect appropriate. Head and Face: Head is normocephalic, atraumatic. Facial resting tone symmetric. Eyes: Conjugate gaze, ocular motility intact bilaterally. PERRL. Neurologic: Cranial Nerves II-XII grossly intact and symmetric. Ears: External ear and ear canal are without deformity. Tympanic membranes intact bilaterally without retraction pockets or middle ear fluid. Hearing is grossly normal. Nose: External nose is midline without deformity or lesion. Anterior rhinoscopy reveals a straight septum, healthy mucosa, turbinates normal in size. Oral: There are no visible or palpable buccal, gingival, lingual, or palatal lesions. The floor of mouth is soft and flat. Dentition is in good repair. Oropharynx: Symmetric without tonsillar pathology. No other concerning lesions or masses Larynx:No hoarseness or stridor. External laryngeal structures normal to palpation. Face and sinuses are non tender. Salivary glands are soft, non tender, without palpable masses. No temporomandibular joint grinding or locking. There is tenderness to palpation over the masseter muscle on the left. Neck: Symmetric. No scars, palpable masses, or crepitus. Midline trachea. Thyroid normal in size, non tender, no palpable mass. Lymphatic: no palpable cervical lymphadenopathy. Pulmonary: Breathing comfortably. Skin: Good skin turgor, no pallor, no icterus. Extremities: No gross deformities, no peripheral edema. Labs and Imaging I reviewed the following imaging studies: Audiometric testing was reviewed. Hearing is essentially unchanged compared to prior exam from 02/2016. Still with mild sloping to normal then back to moderate sensorineural hearing loss on the left. ASSESSMENT & RECOMMENDATIONS Ken Mckeon is a 73 y.o. male with stable sensorineural hearing loss and continued left otalgia. Recommendations: 1. Patient should plan for repeat audio every 1-2 years or sooner if symptoms worsen in the meantime. 2. Otalgia most likely musculoskeletal in nature. He is tolerating this for now but will let us know if this changes or worsen. Mary Ny MD Otolaryngology - Head and Neck Surgery 12/28/18 2:34 PM documented in this encounter Plan of Treatment Upcoming Encounters Date Type Department Care Team (Late st Contact Info) Description 12/15/2024 11:30 AM EDT Office Visit [place] [address] Charline Ziegler MD [facility] [place] [address] Scheduled Referrals Name Type Priority Associated Diagnoses Orde r Schedule Referral to ENT Outpatient Referral Routine Otalgia, unspecified laterality Sensorineural hearing loss (SNHL), unspecified laterality Ordered: 10/15/2018 documented as of this encounter Visit Diagnoses Diagnosis Asymmetrical sensorineural hearing loss Sensorineural hearing loss, asymmetrical Left ear pain Otalgia, unspecified documented in this encounter Care Teams Unemployment Specialist Relationship Specialty Start Date End Date Reji Adams MD [facility] GENER[facility] [place] [address] PCP - General General Internal Medicine 07/13/15 documented as of this encounter
--- OUTSIDE RECORDS SUMMARY | 2024-07-09 11:13 | XMS_ITS | Encounter Summary ---
Author Organization [facility] [place] [address] Care Team Providers Care Faith Doctor Name Role Phone Reji Adams MD Primary Care Provider Encounter Details Date Type Department Care Team (Late st Contact Info) Description 10/26/2018 10:20 AM EDT Laboratory Appointment Lab [address] [place] [phone] Elevated PSA Social History Tobacco Use Types [...] 11:30 AM EDT Office [place] [address] Charline Ziegler MD [facility] [place] [address] documented as of this encounter Procedures Procedure Name Priority Date/Time Associated Diagnosis Comments PSA (ULTRASENSITIVE), TOTAL AND FREE Routine 10/26/2018 10:10 AM EDT Elevated PSA documented in this encounter Results * (ABNORMAL) PSA, total and free (10/26/2018 10:10 AM EDT) Prostate Specific Antigen (Ultrasensitiv e) 8.11(H) 0.00 - 4.00 ng/mL [facility] Prostate Specific Antigen, Free 1.0 ng/mL [facility] PSA % Free 12 % [facility] Comment: Probability of finding DRUMS TEACHER on needle biopsy by age in years: % fPSA ? 50-59yrs ? 60-69yrs ? >=70yrs <=10 ? 49.2 ? 57.5 ? 64.5 11-18 ?26.9 ? 33.9 ? 40.8 19-25 ?18.2 ? 23.9 ? 29.7 >25 ? 9.1 ? 12.2 ? 15.8 Blood specimen (specimen) 10/26/2018 10:10 AM EDT 10/26/2018 10:22 AM EDT Narrative Resulting Agency Comment Spec In Lab Tobias Mcginnis MD CHEMISTRY ORDERABL ES [facility] [place] [address] documented in this encounter Visit Diagnoses Diagnosis Elevated PSA Elevated prostate specific antigen (PSA) documented in this encounter Care Teams Faith Doctor Relationship Specialty Start Date End Date Reji Adams MD [facility] [place] [address] PCP - General General Internal Medicine 07/13/15 documented as of this encounter
--- OUTSIDE RECORDS SUMMARY | 2024-07-09 11:13 | XMS_ITS | Encounter Summary ---
Author Organization [facility] Address [facility] [place] [address] Care Team Providers Care Qc Tech Name Role Phone Reji Adams MD Primary Care Provider [phone] Reason for Visit * Reason Comments Otitis Externa Ear pain X2 weeks Encounter Details Date Type Department Care Team (Late st Contact Info) Description 10/12/2018 3:40 PM EDT Office Visit Internal Medicine at [address] [address] Reji Adams MD [facility] [place] [address] Ear pain, left Social History Tobacco Use Types Packs/Day [...] Sign Reading Time Taken Comments Blood Pressure 128/77 10/12/2018 3:45 PM EDT Pulse 66 10/12/2018 3:45 PM EDT Temperature - - Respiratory Rate - - Oxygen Saturation 100% 10/12/2018 3:45 PM EDT Inhaled Oxygen Concentration - - Weight 93 kg (205 lb) 10/12/2018 3:45 PM EDT Height 179.1 cm (5' 10.5) 10/12/2018 3:45 PM ED T Body Mass Index 29 10/12/2018 3:45 PM EDT documented in this encounter Progress Notes * Reji Adams MD - 10/12/2018 3:40 PM EDT ESTABLISHED PATIENT VISIT I. HISTORY a. Reason(s) for Visit: Ken Mckeon 73 y.o. male who presents today due to complaint(s) of: Chief Complaint Patient presents with ??? Otitis Externa Ear pain X2 weeks b. History of Present Illness:[] L ear pain X 2 weeks. No hearing changes of recent times but does have low hearing loss. No drainage. No trauma to ear. No fevers, chills. No swimming. c. Review of Systems: Constitutional - no fevers, chills, weight loss or gain, fatigue Cardiovascular - No CP, palpitations, angina, MARTIN, SOB Respiratory - No SOB, MARTIN, wheeze, cough, sputum production HEENT - see HPI Gastrointestinal - No abdominal pain, nausea, GERD, [...] oz Comment: rarely II. PHYSICAL EXAM: BP 128/77 Pulse 66 Ht 179.1 cm (5' 10.5) Wt 93 kg (205 lb) SpO2 100% BMI 29.00 kg/m?? General - No acute distress, conversing without difficulty. ENT - oropharynx without lesions. Canal normal without erythema, TM normal. Eyes - EOMI. No scleral icterus Neck - No lymphadenopathy, supple, no masses Extremities - No clubbing, cyanosis or edema. Pulses intact. III. ASSESSMENT/PLAN:Ken Mckeon 73 y.o. male presenting with R ear pain x 2 weeks of unknown etiology. No recent URI, TMJ sxs.No evidence for trauma. Consider allergy but pt not interested in trial of antihistamine. Need to consider zoster but I would expect rash given 2 weeks duration of sxs. Pt will monitor and take tylenol or celebrex for sxs and let me know if sxs change or fail to improve Meds reconciled documented in this encounter Plan of Treatment Upcoming Encounters Date Type Department Care Team (Late st Contact Info) Description 12/15/2024 11:30 AM EDT Office [place] [address] Charline Ziegler MD [facility] [place] [address] documented as of this encounter Visit Diagnoses Diagnosis Ear pain, left documented in this encounter Care Teams Qc Tech Relationship Specialty Start Date End Date Reji Adams MD [facility] [place] [address] PCP - General General Internal Medicine 07/13/15 documented as of this encounter
--- OUTSIDE RECORDS SUMMARY | 2024-07-09 11:13 | XMS_ITS | Encounter Summary ---
Author Organization [facility] [place] [address] Care Team Providers Care Grain Cleaner Name Role Phone Reji Adams MD Primary Care Provider [phone] Reason for Visit * Reason Onset Date Comments Medication Problem 02/04/2019 Encounter Details Date Type Department Care Team (Late st Contact Info) Description 02/04/2019 Refill Internal Medicine at [place] [id number] Salma Oswald Social History Tobacco Use Types Packs/Day Years [...] Telephone Encounter - Dafne Hickey RN - 02/04/2019 11:08 AM EDT Phoned pharmacy, confirmed script is for anxiety, not sleep, re-pended and routed to PCP for signature, previous script cancelled * Telephone Encounter - Salma Oswald - 02/04/2019 10:55 AM EDT Pharmacy or caller: [facility] Medication: ALPRAZolam (XANAX) 0.25 mg Tablet Message: Salin from [facility] pharmacy calling requesting clarification on this medication. Stating Dosage directions need to be clarified. documented in this encounter Plan of Treatment Upcoming Encounters Date Type Department Care Team (Late st Contact Info) Description 12/15/2024 11:30 AM EDT Office [place] [address] Charline Ziegler MD [facility] [place] [address] documented as of this encounter Visit Diagnoses Not on filedocumented in this encounter Care Teams Grain Cleaner Relationship Specialty Start Date End Date Reji Adams MD [facility] [place] [address] PCP - General General Internal Medicine 07/13/15 documented as of this encounter
--- OUTSIDE RECORDS SUMMARY | 2024-07-09 11:13 | XMS_ITS | Encounter Summary ---
Author Organization Formerly [facility] Address [facility] [place] [address] Care Team Providers Care Lean Engineer Name Role Phone Reji Adams MD Primary Care Provider [phone] Encounter Details Date Type Department Care Team (Latest Contact Info) Description 02/08/2019 9:41 AM EDT - 02/08/2019 11:59 PM EDT Hospital [place] [address] Lenore Mcginnis MD [facility] [place] [id number] Elevated PSA Discharge Disposition: Home Social History Tobacco Use [...] 81 mg by mouth daily. 03/17/2023 Saw [place] 500 mg capsule Take 500 mg by mouth daily. 03/14/2020 documented as of this encounter Plan of Treatment Upcoming Encounters Date Type Department Care Team (Late st Contact Info) Description 12/15/2024 11:30 AM EDT Office [place] [address] Charline Ziegler MD [facility] [place] [address] documented as of this encounter Procedures Procedure Name Priority Date/Time Associated Diagnosis Comments SPECIMEN TO PATHOLOGY Routine 02/08/2019 12:11 PM EDT SPECIMEN TO PATHOLOGY Routine 02/08/2019 12:11 PM EDT SPECIMEN TO PATHOLOGY Routine 02/08/2019 12:11 PM EDT SPECIMEN TO PATHOLOGY Routine 02/08/2019 12:11 PM EDT SPECIMEN TO PATHOLOGY Routine 02/08/2019 12:11 PM EDT SPECIMEN TO PATHOLOGY Routine 02/08/2019 12:11 PM EDT SPECIMEN TO PATHOLOGY Routine 02/08/2019 12:11 PM EDT SPECIMEN TO PATHOLOGY Routine 02/08/2019 12:11 PM EDT SPECIMEN TO PATHOLOGY Routine 02/08/2019 12:11 PM EDT SPECIMEN TO PATHOLOGY Routine 02/08/2019 12:11 PM EDT SPECIMEN TO PATHOLOGY Routine 02/08/2019 12:11 PM EDT SPECIMEN TO PATHOLOGY Routine 02/08/2019 12:11 PM EDT SPECIMEN TO PATHOLOGY Routine 02/08/2019 12:11 PM EDT SURGICAL PATHOLOGY REPORT Routine 02/08/2019 12:10 PM EDT US GUIDED BIOPSY PROSTATE (BAN ONLY) Routine 02/08/2019 12:08 PM EDT Elevated PSA documented in this encounter Results * Specimen to Pathology (02/08/2019 12:11 PM EDT) AP Specimen 02/08/2019 12:1 1 PM EDT 02/08/2019 12:11 PM EDT Narrative [facility] - 02/08/2019 12:11 PM EDT Specimen requisition ordered. ??Separate Pathology report to follow Lenore Mcginnis MD PATHOLOGY/CYTOLOGY ORDERABLES [facility] [place] [address] * Specimen to Pathology (02/08/2019 12:11 PM EDT) AP Specimen 02/08/2019 12:1 1 PM EDT 02/08/2019 12:11 PM EDT Narrative [facility] - 02/08/2019 12:11 PM EDT Specimen requisition ordered. ??Separate Pathology report to follow Lenore Mcginnis MD PATHOLOGY/[place] [address] * Specimen to Pathology (02/08/2019 12:11 PM EDT) AP Specimen 02/08/2019 12:1 1 PM EDT 02/08/2019 12:11 PM EDT Narrative [facility] - 02/08/2019 12:11 PM EDT Specimen requisition ordered. ??Separate Pathology report to follow Lenore Mcginnis MD PATHOLOGY/[place] [address] * Specimen to Pathology (02/08/2019 12:11 PM EDT) AP Specimen 02/08/2019 12:1 1 PM EDT 02/08/2019 12:11 PM EDT Narrative [facility] - 02/08/2019 12:11 PM EDT Specimen requisition ordered. ??Separate Pathology report to follow Lenore Mcginnis MD PATHOLOGY/CYTOLOGY ORDERABLES Performing Organization Address City/[facility]/[place] [address] * Specimen to Pathology (02/08/2019 12:11 PM EDT) AP Specimen 02/08/2019 12:1 1 PM EDT 02/08/2019 12:11 PM EDT Narrative [facility] - 02/08/2019 12:11 PM EDT Specimen requisition ordered. ??Separate Pathology report to follow Lenore Mcginnis MD PATHOLOGY/CYTOLOGY ORDERABLES Performing Organization Address City/[facility]/[place] [address] * Specimen to Pathology (02/08/2019 12:11 PM EDT) AP Specimen 02/08/2019 12:1 1 PM EDT 02/08/2019 12:11 PM EDT Narrative [facility] - 02/08/2019 12:11 PM EDT Specimen requisition ordered. ??Separate Pathology report to follow Lenore Mcginnis MD PATHOLOGY/CYTOLOGY ORDERABLES Performing Organization Address City/[facility]/ZIP Co de Phone Number [facility] [place] [address] * Specimen to Pathology (02/08/2019 12:11 PM EDT) AP Specimen 02/08/2019 12:1 1 PM EDT 02/08/2019 12:11 PM EDT Narrative [facility] - 02/08/2019 12:11 PM EDT Specimen requisition ordered. ??Separate Pathology report to follow Lenore Mcginnis MD PATHOLOGY/CYTOLOGY ORDERABLES Performing Organization Address [facility] [place] [address] * Specimen to Pathology (02/08/2019 12:11 PM EDT) AP Specimen 02/08/2019 12:1 1 PM EDT 02/08/2019 12:11 PM EDT Narrative [facility] - 02/08/2019 12:11 PM EDT Specimen requisition ordered. ??Separate Pathology report to follow Lenore Mcginnis MD PATHOLOGY/CYTOLOGY ORDERABLES Performing Organization Address [facility] [place] [address] * Specimen to Pathology (02/08/2019 12:11 PM EDT) AP Specimen 02/08/2019 12:1 1 PM EDT 02/08/2019 12:11 PM EDT Narrative [facility] - 02/08/2019 12:11 PM EDT Specimen requisition ordered. ??Separate Pathology report to follow Lenore Mcginnis MD PATHOLOGY/CYTOLOGY ORDERABLES Performing Organization Address [facility] [place] [address] * Specimen to Pathology (02/08/2019 12:11 PM EDT) AP Specimen 02/08/2019 12:1 1 PM EDT 02/08/2019 12:11 PM EDT Narrative [facility] - 02/08/2019 12:11 PM EDT Specimen requisition ordered. ??Separate Pathology report to follow Lenore Mcginnis MD PATHOLOGY/[place] [address] * Specimen to Pathology (02/08/2019 12:11 PM EDT) AP Specimen 02/08/2019 12:1 1 PM EDT 02/08/2019 12:11 PM EDT Narrative [facility] - 02/08/2019 12:11 PM EDT Specimen requisition ordered. ??Separate Pathology report to follow Lenoer Mcginnis MD PATHOLOGY/CYTOLOGY ORDERABLES Performing Organization Address City/[facility]/[place] [address] * Specimen to Pathology (02/08/2019 12:11 PM EDT) AP Specimen 02/08/2019 12:1 1 PM EDT 02/08/2019 12:11 PM EDT Narrative [facility] - 02/08/2019 12:11 PM EDT Specimen requisition ordered. ??Separate Pathology report to follow Lenore Mcginnis MD PATHOLOGY/CYTOLOGY ORDERABLES Performing Organization Address City/[facility]/[place] [address] * Specimen to Pathology (02/08/2019 12:11 PM EDT) AP Specimen 02/08/2019 12:1 1 PM EDT 02/08/2019 12:11 PM EDT Narrative [facility] - 02/08/2019 12:11 PM EDT Specimen requisition ordered. ??Separate Pathology report to follow Lenore Mcginnis MD PATHOLOGY/CYTOLOGY ORDERABLES Performing Organization Address City/[facility]/[place] [address] * Surgical Pathology Report (02/08/2019 12:10 PM EDT) Final Diagnosis [id number] ? Location: 3S The signing pathologist has (i) examined the relevant preparation(s) for the specimen(s) and (ii) rendered or confirmed the diagnosis(es). . ? Addendum ADDENDUM DISCUSSION This case has been reviewed by Ely Murray MD of [facility] ([facility]) by report dated 02/27/2019 with the accession number [id number]. The [facility] ([facility]) diagnosis is in minor disagreement with our diagnosis (carcinoma grade). For the full text of the [facility] report(s), please refer to [facility]ology in the electronic health record (eDH). Electronically signed by: ??MD Orestes, Real Umanzor Verified: ??03/19/2019 ?Pathologist Performed at: ??-[facility] [place], [place], [place] ?Surgical Pathology DIAGNOSIS Prostate needle core biopsies: A - Right Lateral Base: - ??Benign prostatic tissue. B - Right Lateral Mid: - ??Benign prostatic tissue. C - Right Lateral Avenue: - ??Benign prostatic tissue. D - Right Base: - ??Benign prostatic tissue. E - Right Mid: - ??Benign prostatic tissue. F - Right Avenue: - ??Benign prostatic tissue. G - Left Lateral Base: - ??Benign prostatic tissue. H - Left Lateral Mid: - ??Benign prostatic tissue. I - Left Lateral Avenue: - ??Benign prostatic tissue. J - Left Base: - ??Benign prostatic tissue. K - Left Mid: - ??Benign prostatic tissue. L - Left Avenue: - ??Benign prostatic tissue. 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 DIAGNOSIS ?involving 3 of 3 cores (50%, 40%, and 20%, respectively). - Cribriform pattern 4 is present. Electronically signed by: ??MD Orestes, Real Umanzor Verified: ??02/10/2019 ?Pathologist Performed at: ??-[facility] [place] [place] [place], [place], [place] ADDITIONAL STUDIES Whole slide scan: hospital insurance representative slide(s) CLINICAL INFORMATION Specimen Submitted: A - Right Lateral Base B - Right Lateral Mid C - Right Lateral Avenue D - Right Base E - Right Mid F - Right Avenue G - Left Lateral Base H - Left Lateral Mid I - Left Lateral Avenue J - Left Base K - Left Mid L - Left Avenue M - bx w/ fusion Clinical History and Diagnosis: Elevated PSA SPECIMEN PROCESSING A - Labeled/Fixative: Right lateral base prostate, formalin. Quantity/Size: Single, 1.0 x 0.1 cm. Tissue Description: [place]augh needle core biopsy. Sections/Processi ng: Entirely submitted in 1 cassette labeled A1. B - Labeled/Fixative: Right lateral mid prostate, formalin. Quantity/Size: Single, 0.9 x 0.1 cm. Tissue Description: [place]augh needle core biopsy. Sections/Processi ng: Entirely submitted in 1 cassette labeled B1. C - Labeled/Fixative: Right lateral apex prostate, formalin. Quantity/Size: Single, 1.0 x 0.1 cm. Tissue Description: Red needle core biopsy. Sections/Processi ng: Entirely submitted in 1 cassette labeled C1. D - Labeled/Fixative: Right base prostate, formalin. Quantity/Size: Single, 2.0 x 0.1 cm. Tissue Description: [place]augh needle core biopsy. Sections/Processi ng: Entirely submitted in 1 cassette labeled D1. E - Labeled/Fixative: Right mid prostate, formalin. Quantity/Size: Single, 1.8 x 0.1 cm. Tissue Description: [place] needle core biopsy. Sections/Processi ng: Entirely submitted in 1 cassette labeled E1. F - Labeled/Fixative: Right apex prostate, formalin. Quantity/Size: Single, 1.7 x 0.1 cm. Tissue Description: Yellow needle core biopsy. . SPECIMEN PROCESSING Sections/Processi ng: Entirely submitted in 1 cassette labeled F1. G - Labeled/Fixative: Left lateral base prostate, formalin. Quantity/Size: Single, 1.1 x 0.1 cm. Tissue Description: Yellow needle core biopsy. Sections/Processi ng: Entirely submitted in 1 cassette labeled G1. H - Labeled/Fixative: Left lateral mid prostate, formalin. Quantity/Size: Single, 1.6 x 0.1 cm. Tissue Description: Yellow-davila needle core biopsy. Sections/Processi ng: Entirely submitted in 1 cassette labeled H1. I - Labeled/Fixative: Left lateral apex prostate, formalin. Quantity/Size: Single, 0.4 x 0.1 cm. Tissue Description: [place]augh needle core biopsy. Sections/Processi ng: Entirely submitted in 1 cassette labeled I1. J - Labeled/Fixative: Left base prostate, formalin. Quantity/Size: Single, 1.6 x 0.1 cm. Tissue Description: Yellow needle core biopsy. Sections/Processi ng: Entirely submitted in 1 cassette labeled J1. K - Labeled/Fixative: Left mid prostate, formalin. Quantity/Size: Single, 2.0 x 0.1 cm. Tissue Description: Yellow needle core biopsy. Sections/Processi ng: Entirely submitted in 1 cassette labeled K1. L - Labeled/Fixative: Left apex prostate, formalin. Quantity/Size: Single, 0.5 x 0.1 cm. Tissue Description: Bronaugh needle core biopsy. Sections/Processi ng: Entirely submitted in 1 cassette labeled L1. M - Labeled/Fixative: M, formalin. Quantity/Size: Three, ranging from 1.7-2.0 cm. Tissue Description: Yellow needle core biopsies. Sections/Processi ng: Entirely submitted in 1 cassette labeled M1. ??ejr 03/19/2019 5:32 PM EDT [facility] PROSTATIC STRUCTURE / Unknown 02/08/2019 12:10 PM EDT 02/08/2019 12:10 PM EDT PROSTATIC STRUCTURE / Unknown 02/08/2019 12:10 PM EDT 02/08/2019 12:10 PM EDT PROSTATIC STRUCTURE / Unknown 02/08/2019 12:10 PM EDT 02/08/2019 12:10 PM EDT PROSTATIC STRUCTURE / Unknown 02/08/2019 12:10 PM EDT 02/08/2019 12:10 PM EDT PROSTATIC STRUCTURE / Unknown 02/08/2019 12:10 PM EDT 02/08/2019 12:10 PM EDT PROSTATIC STRUCTURE / Unknown 02/08/2019 12:10 PM EDT 02/08/2019 12:10 PM EDT PROSTATIC STRUCTURE / Unknown 02/08/2019 12:10 PM EDT 02/08/2019 12:10 PM EDT PROSTATIC STRUCTURE / Unknown 02/08/2019 12:10 PM EDT 02/08/2019 12:10 PM EDT PROSTATIC STRUCTURE / Unknown 02/08/2019 12:10 PM EDT 02/08/2019 12:10 PM EDT PROSTATIC STRUCTURE / Unknown 02/08/2019 12:10 PM EDT 02/08/2019 12:10 PM EDT PROSTATIC STRUCTURE / Unknown 02/08/2019 12:10 PM EDT 02/08/2019 12:10 PM EDT PROSTATIC STRUCTURE / Unknown 02/08/2019 12:10 PM EDT 02/08/2019 12:10 PM EDT PROSTATIC STRUCTURE / Unknown 02/08/2019 12:10 PM EDT 02/08/2019 12:10 PM EDT Lenore Mcginnis MD PATHOLOGY/[place] [address] * US Guided Transrectal Biopsy (02/08/2019 12:08 PM EDT) Anatomical Region Laterality Modality Pelvis Ultrasound 02/08/2019 12:0 3 PM EDT Impressions 02/08/2019 4:37 PM EDT Prostate Summary Transrectal ultrasound of the prostate was performed. No hypoechoic areas seen, but suspicious lesion(s) noted on MRI. Prostate Biopsy Summary Ultrasound guidance was provided for Dr. Mcginnis of the section of Urology who performed multiple biopsies in the [address] [place] [address] location. UroNav fusion was used for this procedure. Thank you for letting us participate in the care of this patient. For questions regarding this report, please contact the number below. Electronically signed by: Karin Muñoz [facility] ([phone]), at 02/08/2019 4:28 PM Other Pertinent Information^MRI done 12/16/18 ? Karin Muñoz, Staff Physician Electronically Signed Final Report ?? 02/08/2019 04:36 pm Narrative 02/08/2019 4:37 PM EDT Male Pelvis ?(Signed Final 02/08/2019 04:36 pm) PATIENT INFO: ID #: ? [id number] ?: ??[birth year] (73 yrs) Name: ? KEN COLE ? Visit Date: 02/08/2019 12:03 pm PERFORMED BY: Performed By: ? Lucia Andersen RDMS Attending: ?Toni CHAVEZ, Karin Rasheed Referred By: ?LENORE MCGINNIS Location: ? [facility] SERVICE(S) PROVIDED: ??UTRBX - Prostate Biopsy with UroNav Fusion - ??[id number] INDICATIONS: ??Elevated PSA TECHNIQUE/SCAN QUALITY: Technique: ?Transducer #:[id number] COMPARISON: MRI Pelvis: --------- PROSTATE: --------- Comment: ?No hypoechoic areas seen, but suspicious ? lesion(s) noted on MRI. ADDITIONAL FINDINGS: Template biopsies performed: 6 biopsies obtained from the right. 6 biopsies obtained from the left Several additional biopsies obtained through suspicious area(s) using UroNav fusion. Procedure Note Karin Muñoz MD - 02/08/2019 Male Pelvis (Signed Final 02/08/2019 04:36 pm) PATIENT INFO: ID #: [id number] : [birth year] (73 yrs) Name: KEN COLE Visit Date: 02/08/2019 12:03 pm PERFORMED BY: Performed By: Lucia Andersen RDMS Attending: Karin Muñoz MD Referred By: LENORE MCGINNIS Location: [facility] SERVICE(S) PROVIDED: UTRBX - Prostate Biopsy with UroNav Fusion - [id number] INDICATIONS: Elevated PSA TECHNIQUE/SCAN QUALITY: Technique: Transducer #:[id number] COMPARISON: MRI Pelvis: --------- PROSTATE: --------- Comment: No hypoechoic areas seen, but suspicious lesion(s) noted on MRI. ADDITIONAL FINDINGS: Template biopsies performed: 6 biopsies obtained from the right. 6 biopsies obtained from the left Several additional biopsies obtained through suspicious area(s) using UroNav fusion. IMPRESSION Prostate Summary Transrectal ultrasound of the prostate was performed. No hypoechoic areas seen, but suspicious lesion(s) noted on MRI. Prostate Biopsy Summary Ultrasound guidance was provided for Dr. Mcginnis of the section of Urology who performed multiple biopsies in the [address] [place] [address] location. UroNav fusion was used for this procedure. Thank you for letting us participate in the care of this patient. For questions regarding this report, please contact the number below. Electronically signed by: Karin Muñoz [facility] ([phone]), at 02/08/2019 4:28 PM Other Pertinent Information^MRI done 12/16/18 Karin Muñoz, Staff Physician Electronically Signed Final Report 02/08/2019 04:36 pm Lenore Mcginnis MD IMG US PROC ORDERA BLEVic documented in this encounter Visit Diagnoses Diagnosis Elevated PSA Elevated prostate specific antigen (PSA) documented in this encounter Care Teams Lean Engineer Relationship Specialty Start Date End Date Reji Adams MD [facility] [place] [address] PCP - General Internal Medicine 07/13/15 documented as of this encounter
--- OUTSIDE RECORDS SUMMARY | 2024-07-09 11:13 | XMS_ITS | Encounter Summary ---
Author Organization [facility] [place] [address] Care Team Providers Care Black Top Paver Operator Name Role Phone Reji Adams MD Primary Care Provider [phone] Reason for Visit * Reason Onset Date Comments Medication Refill 07/24/2018 Encounter Details Date Type Department Care Team (Late st Contact Info) Description 07/24/2018 Refill Internal Medicine at [address] [address] Reji Adams MD [facility] [place] [address] Social History Tobacco Use Types Packs/Day Years [...] 11:30 AM EDT Office [place] [address] Charline Ziegler MD [facility] [place] [address] documented as of this encounter Visit Diagnoses Not on filedocumented in this encounter Care Teams Black Top Paver Operator Relationship Specialty Start Date End Date Reji Adams MD [facility] [address] PCP - General General Internal Medicine 07/13/15 documented as of this encounter
--- OUTSIDE RECORDS SUMMARY | 2024-07-09 11:13 | XMS_ITS | Encounter Summary ---
Author Organization [facility] [place] [address] Care Team Providers Care Pharmaceutical Assistant Name Role Phone Reji Adams MD Primary Care Provider [phone] Reason for Visit * Reason Onset Date Comments Medication Refill 02/03/2019 Encounter Details Date Type Department Care Team (Late st Contact Info) Description 02/03/2019 Refill Internal Medicine at [address] [address] Reji Adams MD [facility] [place] [address] Social History Tobacco Use Types Packs/Day Years [...] 11:30 AM EDT Office [place] [address] Charline Ziegler MD [facility] [place] [address] documented as of this encounter Visit Diagnoses Not on filedocumented in this encounter Care Teams Pharmaceutical Assistant Relationship Specialty Start Date End Date Reji Adams MD [facility] [place] [address] PCP - General General Internal Medicine 07/13/15 documented as of this encounter
--- OUTSIDE RECORDS SUMMARY | 2024-07-09 11:13 | XMS_ITS | Encounter Summary ---
Author Organization [facility] [place] [address] Care Team Providers Care Docking Saw Operator Name Role Phone Reji Adams MD Primary Care Provider [phone] Reason for Visit * Reason Onset Date Comments Medication Refill 07/03/2018 Encounter Details Date Type Department Care Team (Late st Contact Info) Description 07/03/2018 Refill Internal Medicine at [address] [address] Reji Adams MD [facility] GENERAL [place] [address] Social History Tobacco Use Types Packs/Day Years [...] 11:30 AM EDT Office [place] [address] Charline Ziegler MD [facility] [place] [address] documented as of this encounter Visit Diagnoses Not on filedocumented in this encounter Care Teams Docking Saw Operator Relationship Specialty Start Date End Date Reji Adams MD [facility] GENER[facility] [place] [address] PCP - General General Internal Medicine 07/13/15 documented as of this encounter
--- OUTSIDE RECORDS SUMMARY | 2024-07-09 11:13 | XMS_ITS | Encounter Summary ---
Author Organization [facility] [place] [address] Care Team Providers Care Pulpwood Cutter Name Role Phone Reji Adams MD Primary Care Provider [phone] Reason for Visit * Reason Comments Medication Refill Encounter Details Date Type Department Care Team (Late st Contact Info) Description 05/18/2018 Refill Internal Medicine at [address] [address] Reji Adams MD [facility] GENERAL [place] [address] Social History Tobacco Use Types Packs/Day Years [...] AM EDT Office [place] [address] Charline Ziegler MD [facility] [place] [address] documented as of this encounter Visit Diagnoses Not on filedocumented in this encounter Care Teams Pulpwood Cutter Relationship Specialty Start Date End Date Reji Adams MD [facility] [place] [address] PCP - General General Internal Medicine 07/13/15 documented as of this encounter
--- OUTSIDE RECORDS SUMMARY | 2024-07-09 11:13 | XMS_ITS | Encounter Summary ---
Author Organization [facility] [place] [address] Care Team Providers Care Rn Acute Dialysis Name Role Phone Reji Adams MD Primary Care Provider [phone] Reason for Visit * Reason Onset Date Comments Pre Procedure Call 02/01/2019 Encounter Details Date Type Department Care Team (Late st Contact Info) Description 02/01/2019 Telephone Hematology [place] [id number] Omaira Antonio, RN Pre Procedure Call Social History Tobacco Use Types Packs/Day Years [...] encounter Miscellaneous Notes * Telephone Encounter - Lenore Mcginnis MD - 02/01/2019 4:43 PM EDT I called to answer a few questions regarding his recent MRI and upcoming biopsy. He is all set for biopsy as scheduled. * Telephone Encounter - Omaira Antonio RN - 02/01/2019 3:44 PM EDT Reason for call: PSA clinic appointment on _02/08/19 at 1000___. Scheduled for Bx at this time? Yes UroNav Meds/Allergies: Penicillin, Betamethasone, Dexamethasone Anticoagulant medications: (Coumadin, Plavix, ASA, NSAIDS) Yes, ASA will hold for 7 days prior to appointment. If yes instruct pt to contact PCP or prescribing physician for further instruction as to discontinuing and restarting anti-coagulant therapy for Biopsy. If unable to discontinue medication as per PCPpt to keep appointment and if biopsy warranted will be scheduled for a later date with bridging. Review OTC, herbal and vitamin supplements for potential anti-coag effect: (ginko biloba, brittanie, fever few, garlic, herbal teas with supplements added, Vit C,) No If yes and pt started: pt to stop supplements for 1 week prior and 1 week after biopsy. Labs: Free PSA (must be at least 10 days prior to clinic) Most recent PSA result and date 02/03/19, 02.13 Have all labs faxed to Urology office (fax # [phone]). Patient Hx: Leaky heart valve, artifical heart valve, hx of heart attack and/or problems No Artifical Joint Replacement Yes, Right total knee 2008 Family history of prostate cancer: No Anyone in household work in healthcare? No Antibiotic use in the past 6 months? No Travel outside the [place] in the past 6 months No Other MRI done 12/16/28. Will hold ASA and other NSAIDs for 7 days prior to appointment. Will have labs done at [facility] prior to appointment. Will use Fleet enema morning of appointment. Patient Instructions/Information: Patient does not need to be NPO for biopsy. Patient to purchase Fleet Enema and use according to directions the morning of appointment if pt agreeable to have biopsy if offered at this appointment. If patient chooses to reschedule biopsy for a later date then no enema needed. Patient will meet with provider to discuss lab results and have a FREDI to determine need for biopsy. Registration is at Hem/Onc dental receptionist on 3rd floor. Patient understands and is able to verbalize back to this nurse the above information. Patient agrees to the POC, knows when and how to call if need arises. documented in this encounter Plan of Treatment Upcoming Encounters Date Type Department Care Team (Late st Contact Info) Description 12/15/2024 11:30 AM EDT Office [place] [address] Charline Ziegler MD [facility] [place] [address] documented as of this encounter Results * US Guided Transrectal Biopsy (02/08/2019 12:08 [...] Urology who performed multiple biopsies in the [address] [place] [address] location. UroNav fusion was used for this procedure. Thank you for letting us participate in the care of this patient. For questions regarding this report, please contact the number below. Other Pertinent Information^MRI done 12/16/18 ? Karin Muñoz, Staff Physician Electronically Signed Final Report ?? 02/08/2019 04:36 pm Narrative 02/08/2019 4:37 PM EDT Male Pelvis ?(Signed Final 02/08/2019 04:36 pm) PATIENT INFO: ID #: ? [id number] ?: ??[birth year] (73 yrs) Name: ? KEN COLE ? Visit Date: 02/08/2019 12:03 pm PERFORMED BY: Performed By: ? Lucia Andersen RDMS Attending: ?Karin Muñoz MD. Referred By: ?LENORE MCGINNIS Location: ? [place] SERVICE(S) PROVIDED: ??UTRBX - Prostate Biopsy with UroNav Fusion - ??[id number] INDICATIONS: ??Elevated PSA TECHNIQUE/SCAN QUALITY: Technique: ?Transducer [...] 02/08/2019 04:36 pm) PATIENT INFO: ID #: [id number] : [birth year] (73 yrs) Name: KEN COLE Visit Date: 02/08/2019 12:03 pm PERFORMED BY: Performed By: Lucia Andersen RDMS Attending: Karin Muñoz MD Referred By: LENORE MCGINNIS Location: [place] SERVICE(S) PROVIDED: UTRBX - Prostate Biopsy with UroNav Fusion - [id number] INDICATIONS: Elevated PSA TECHNIQUE/SCAN QUALITY: Technique: Transducer [...] Urology who performed multiple biopsies in the [address] [place] [address] location. UroNav fusion was used for this procedure. Thank you for letting us participate in the care of this patient. For questions regarding this report, please contact the number below. Other Pertinent Information^MRI done 12/16/18 Karin Muñoz, Staff Physician Electronically Signed Final Report 02/08/2019 04:36 pm Lenore Mcginnis MD IMG US PROC ORDERA BLES * (ABNORMAL) PSA (02/03/2019 10:14 AM EDT) Prostate Specific Antigen (Ultrasensitiv e) 7.20(H) 0.00 - 4.00 ng/mL [facility] Blood specimen (specimen) 02/03/2019 10:14 AM EDT 02/03/2019 10:19 AM EDT Narrative Resulting Agency Comment Spec In Lab Lenore Mcginnis MD CHEMISTRY ORDERABL ES [facility] [place] [address] documented in this encounter Visit Diagnoses Diagnosis Elevated PSA Elevated prostate specific antigen (PSA) Elevated PSA Elevated prostate specific antigen (PSA) documented in this encounter Care Teams Rn Acute Dialysis Relationship Specialty Start Date End Date Reji Adams MD [facility] GENER[facility] [place] [address] PCP - General General Internal Medicine 07/13/15 documented as of this encounter
--- OUTSIDE RECORDS SUMMARY | 2024-07-09 11:13 | XMS_ITS | Encounter Summary ---
Author Organization [facility] Address [facility] [place] [address] Care Team Providers Care Roller Checker Name Role Phone Reji Adams MD Primary Care Provider [phone] Reason for Visit * Reason Comments Mass Under skin on right leg. Encounter Details Date Type Department Care Team (Late st Contact Info) Description 08/18/2018 4:00 PM EST Office Visit Internal Medicine at [address] [address] Jed Liao MD [facility] GENERAL INTER[place] [address] Folliculitis Social History Tobacco Use Types Packs/Day Years [...] Sign Reading Time Taken Comments Blood Pressure 127/77 08/18/2018 3:48 PM EST Pulse 66 08/18/2018 3:48 PM EST Temperature 36.3 ??C (97.3 ??F) 08/18/2018 3:48 PM ES T Respiratory Rate 16 08/18/2018 3:48 PM EST Oxygen Saturation 100% 08/18/2018 3:48 PM EST Inhaled Oxygen Concentration - - Weight 90.7 kg (200 lb) 08/18/2018 3:48 PM EST Height - - Body Mass Index 28.29 07/06/2018 11:19 AM EST documented in this encounter Progress Notes * Jed Liao - 08/18/2018 4:00 PM EST iSubjective: ? Patient ID: Ken Mckeon is a 72 y.o. year old male HPI Chief Complaint Patient presents with ??? Mass Under skin on right leg. Bulge at the base of the scrotum for about 4-5 days that seems to be growing. Initially felt like apimple, now is tender to touch. No exudates that he has noticed. Hasn't done anthing for it yet other than keep it clean. Is sexually active with one person and does masturbate at times and has no change in ejaculate color or amount or pain with ejaculation or pain during sex or any other associated symptoms. Denies any dysuria or change in urinary frequency. Denies any testicular pain. ?? Review of Systems Constitutional: Negative. Negative for diaphoresis, fever, malaise/fatigue and chills. All other systems reviewed and are negative. Patient Active Problem List Diagnosis ??? S/P rotator cuff repair ??? Trigger finger, left ring finger ??? Chronic left shoulder pain ??? Arthritis of right elbow ??? Asymmetrical sensorineural hearing loss ??? Shoulder pain, bilateral ??? Right arm numbness ??? Right hand pain ??? Peripheral neuropathy Overview Note: Diagnosis in progress, decrease in sharp sensation, and vibratory sensation in b/l feet ??? Numbness Overview Note: Lateral three digits of R hand ??? Urinary urgency Overview Note: W/ hesitency, given duration, likely BPH ??? Cervical stenosis of spinal canal ??? Back pain ??? Depression ??? Left shoulder pain ??? Cervical radiculopathy ??? Insomnia ??? Neck pain ??? Anxiety ??? Lightheadedness ??? Varicose veins of legs ??? OA (osteoarthritis) of knee Overview Note: right ??? Cataract extraction status of left eye ??? Status post total knee replacement Overview Note: TKR Right knee in 2007 Medications 08/18/18 1548 Medication Sig Taking? ALPRAZolam (XANAX) 0.25 mg Tablet Take 1 tablet by mouth 3 times daily as needed for Sleep. Yes pravastatin (PRAVACHOL) 20 mg Tablet Take 1 tablet by mouth daily. Yes MALCOLM EXTRACT ORAL [...] 1 tablet by mouth daily. Yes Saw [place] 500 mg capsule Take 500 mg by mouth daily. Yes ?? Objective: ?? BP 127/77 (BP Location (NBP): Right arm, Patient Position: Sitting, BP Cuff Sizes: Large Adult (32-43 cm)) Pulse 66 Temp 36.3 ??C (97.3 ??F) (Oral) Resp 16 Wt 90.7 kg (200 lb) SpO2 100% BMI 28.29 kg/m?? @IPVITALS(7d:14)@ PHQ9 Questionnaires Data (Clinic and Pt Entered): Today's value PHQ-9 QUESTIONNAIRE (AMB) 08/18/2018 PHQ - 9 Score (Clinic) - Little interest or pleasure (Clinic) Not at all Down, depressed, hopeless (Clinic) Not at all Trouble sleeping (Clinic) - Tired or no energy (Clinic) - Poor appetite or overeating (Clinic) - Feeling like a failure (Clinic) - Trouble concentrating (Clinic) - Moving or speaking slowly (Clinic) - Would be better off (Clinic) - How difficult are the problems (Clinic) - ? Physical Exam Constitutional: He is oriented to person, place, and time. He appears well- developed and well-nourished. No distress. HENT: Head: Normocephalic and atraumatic. Cardiovascular: Normal rate and regular rhythm. Pulmonary/Chest: Effort normal. No respiratory distress. Musculoskeletal: Normal range of motion. He exhibits no edema or deformity. Neurological: He is alert and oriented to person, place, and time. Skin: At the base of the scrotum (in the perineum) has a pea-sized erythematous papule without any surrounding erythema. The papule is tender and very easily burst during palpation and exuded a small amount of white pus. ?? Assessment and Plan: 72yo with what appears to be folliculitis at the base of the scrotum/perieum. - Warm compresses. Reviewed signs/symptoms of cellulitis or worsening folliculitis or abscess for any of which he should return, with a plan to utilize topical antibiotics as needed. * Anika Mcfarland MD - 08/18/2018 4:00 PM EST The case was discussed at the time of the visit or immediately after the visit. The assessment and plan were formulated in discussion with me and I agree with them as documented. I have reviewed the history, physical exam, assessment and plan with the resident. Major issues discussed today: 72 year old man with a history of anxiety, depression, insomnia, OA who noted a central inferior scrotal mass 5-6 days ago which has since grown in size. No associated urinary or genital symptoms--still sexually active without issues per his report. Vitals: 08/18/18 1548 BP: 127/77 BP Location (NBP): Right arm Patient Position: Sitting BP Cuff Sizes: Large Adult (32-43 cm) Pulse: 66 Resp: 16 Temp: 36.3 ??C (97.3 ??F) TempSrc: Oral SpO2: 100% Weight: 90.7 kg (200 lb) Per Dr Liao, well-appearing elderly man in no acute distress, with red, tender, erythematous pea-sized nodule at the base of his scrotum, with scant purulent discharge when pressure applied; no surrounding erythema or warmth Plan: Folliculitis--will trial conservative treatment with warm compresses and monitor for improvement--if persistent, will utilize a topical antibiotic as needed. documented in this encounter Plan of Treatment Upcoming Encounters Date Type Department Care Team (Late st Contact Info) Description 12/15/2024 11:30 AM EDT Office [place] [address] Charline Ziegler MD [facility] [place] [address] documented as of this encounter Visit Diagnoses Diagnosis Folliculitis Other specified disease of hair and hair follicles documented in this encounter Care Teams Roller Checker Relationship Specialty Start Date End Date Reji Adams MD [facility] GENERAL [place] [address] PCP - General General Internal Medicine 07/13/15 documented as of this encounter
--- OUTSIDE RECORDS SUMMARY | 2024-07-09 11:13 | XMS_ITS | Encounter Summary ---
Author Organization [place] [address] Care Team Providers Care Marketing Researcher Name Role Phone Reji Adams MD Primary Care Provider [phone] Reason for Visit * Reason Onset Date Comments Prior Authorization 09/17/2018 alprazolam 0 .5 mg tablet sustained release Encounter Details Date Type Department Care Team (Late st Contact Info) Description 09/17/2018 Telephone Internal Medicine at [address] [id number] Mary Conway CCMA Prior Authorization (alprazolam 0.5 mg tablet sustained release) Social History Tobacco Use Types Packs/Day Years [...] Miscellaneous Notes * Telephone Encounter - Amrita Rodriguez RN - 09/18/2018 10:14 AM EST Patient informed of denial of Alprazolam. He is not interested in alternatives at this time. * Telephone Encounter - Mary Conway CCMA - 09/18/2018 9:19 AM EST Images from the original note were not included. Medication Prior Authorization for Primary [place] [address] Denied Case/Reference #: N/A Additional Information from Insurance carrier: * Telephone Encounter - Mary Conway CCMA - 09/17/2018 10:46 AM EST Images from the original note were not included. Medication Prior Authorization for Primary Care Patient: Ken Mckeon Patient : 1945 Subscriber Insurance: [employer] Phone #: Sent via: [employer] Barton: [id number] Physician: Reji Adams MD Medication Requested: alprazolam (Xanax XR) Strength: 0.5 mg tablet Frequency/Sig: Take 1 tablet by mouth every evening. Disp.: 30 Refills: 3 Currently taking: No If yes, how long: N/A Diagnosis for this medication: Anxiety ICD-10 code: F41.9 Prior medications trialed in this patient: Medication: alprazolam immediate release Approx Dates: 03/19/18-present Outcome/Adverse Reactions: Inadequate response Medication: clonazepam Approx Dates: 03/13/12-03/31/18 Outcome/Adverse Reactions: Inadequate response Additional Information: documented in this encounter Plan of Treatment Upcoming Encounters Date Type Department Care Team (Late st Contact Info) Description 12/15/2024 11:30 AM EDT Office [place] [address] Charline Ziegler MD [facility] [place] [address] documented as of this encounter Visit Diagnoses Not on filedocumented in this encounter Care Teams Marketing Researcher Relationship Specialty Start Date End Date Reji Adams MD [facility] GENERAL [place] [address] PCP - General General Internal Medicine 07/13/15 documented as of this encounter
--- OUTSIDE RECORDS SUMMARY | 2024-07-09 11:13 | XMS_ITS | Encounter Summary ---
Author Organization [facility] Address [facility] [place] [address] Care Team Providers Care Insurance Account Manager Name Role Phone Reji Adams MD Primary Care Provider [phone] Reason for Referral * Diagnostic Test (Routine) - Closed Specialty Diagnoses / Procedures Referred By Contac t Referred To Contact Radiology Diagnoses Elevated PSA Procedures MRI Pelvis WWO(Prostate) Tobias Mcginnis MD [facility] [place] [address] [place] [address] Referral ID Status Reason Start Date Expiration Date V isits Requested Visits Authorized [id number] Closed Specialty Service Requested 11/30/2018 11/30/2019 1 1 Reason for Visit * Diagnostic Test (Routine) - Closed Specialty Diagnoses / Procedures Referred By Contac t Referred To Contact Radiology Diagnoses Elevated PSA Procedures MRI Pelvis WWO(Prostate) Tobias Mcginnis MD [facility] [place] [address] [place] [address] Referral ID Status Reason Start Date Expiration Date V isits Requested Visits Authorized [id number] Closed Specialty Service Requested 11/30/2018 11/30/2019 1 1 Encounter Details Date Type Department Care Team (Latest Contact Info) Description 12/16/2018 4:08 PM EDT - 12/16/2018 11:59 PM EDT Hospital [place] [address] Tobias Mcginnis MD [facility] [place] [address] Elevated PSA Discharge Disposition: Home Social History [...] Take 1 tablet by mouth daily. pravastatin (PRAVACHOL) 20 mg Tablet Take 1 tablet by mouth daily. 90 tablet 3 11/26/2018 08/26/2019 ALPRAZolam (XANAX) 0.25 mg Tablet Take 1 tablet by mouth 3 times daily as needed for Sleep. 90 tablet 11/24/2018 12/24/2018 celecoxib (CELEBREX) 100 mg Capsule Take 100 mg by mouth daily as needed for Pain. 02/01/2019 MALCOLM EXTRACT ORAL Take by mouth. 11/09/19 aspirin 81 mg Tablet, Delayed Release (E.C.) Take 81 mg by mouth daily. 03/17/2023 Saw [place] 500 mg capsule Take 500 mg by mouth daily. 03/14/2020 documented as of this encounter Plan of Treatment Upcoming Encounters Date Type Department Care Team (Late st Contact Info) Description 12/15/2024 11:30 AM EDT Office Visit [place] [id number] Charline Ziegler MD [facility] [place] [address] documented as of this encounter Procedures Procedure Name Priority Date/Time Associated Diagnosis Comments MRI PELVIS WWO (PROSTATE) Routine 12/16/2018 6:06 PM EDT Elevated PSA documented in this encounter Results * MRI Pelvis WWO(Prostate) [...] PSA level: 8.11 Date of sextant biopsy:N/A Lyons score: N/A TECHNIQUE: Multiparametric MRI of the [...] the number below. Tobias Mcginnis MD IMG MRI ORDERABLES documented [...] Intravenous, ONCE PRN, 1 dose, Starting on Fri12/16/18 at 1844, Until Fri12/16/18 at 1805, Per Protocol, Radiology Contrast, Routine Given 12/16/2018 6:05 PM EDT 19 mLs documented in this encounter Care Teams Insurance Account Manager Relationship Specialty Start Date End Date Reji Adams MD [facility] [place] [address] PCP - General General Internal Medicine 07/13/15 documented as of this encounter
--- OUTSIDE RECORDS SUMMARY | 2024-07-09 11:13 | XMS_ITS | Encounter Summary ---
Author Organization [facility] [place] [address] Care Team Providers Care Circus Rider Name Role Phone Reji Adams MD Primary Care Provider [phone] Reason for Visit * Reason Onset Date Comments Prior Authorization 10/08/2018 ALPRAZolam ( XANAX) 0.25 mg Tablet Encounter Details Date Type Department Care Team (Late st Contact Info) Description 10/08/2018 Telephone [place] [address] Azeem Henderson Prior Authorization (ALPRAZolam (XANAX) 0.25 mg Tablet) Social History Tobacco Use Types Packs/Day Years [...] encounter Miscellaneous Notes * Telephone Encounter - Quynh Bales, [facility] - 10/12/2018 10:35 AM EDT Medication Prior Authorization for Primary [place] [address] Denied: ALPRAZolam (XANAX) 0.25 mg Tablet -- Tier Exception Request See entire Denial Letter in scanned documents. * Telephone Encounter - Quynh Bales CMA - 10/09/2018 1:33 PM EDT Sent Tier Exception request to [employer] via [employer]. Barton: [id number] * Telephone Encounter - Quynh Bales CMA - 10/09/2018 10:43 AM EDT Received immediate response that medication is on formulary and does not require prior authorization. * Telephone Encounter - Quynh Bales CMA - 10/09/2018 10:10 AM EDT Medication Prior Authorization for Primary Care Request received via: Patient Phone Call Patient: Ken Mckeon Patient : 1945 Subscriber Insurance: [employer] -- [employer] Phone #: Sent via: [employer] Barton/Fax#: [id number] Physician: Reji Adams MD Medication Requested: ALPRAZolam (XANAX) 0.25 mg Tablet Frequency/Sig: Take 1 tablet by mouth 3 times daily as needed. Disp.: 90 Refills: 0 * Telephone Encounter - Azeem Henderson - 10/08/2018 12:18 PM EDT Medication: ALPRAZolam (XANAX) 0.25 mg Tablet Insurance Company: [employer] Fax: n/a Pharmacy is stating that this is a covered medication but [employer] needs to see that this is an Maintenance Medication so it will be a $1.00 copay. Please see if we are able to do this. documented in this encounter Plan of Treatment Upcoming Encounters Date Type Department Care Team (Late st Contact Info) Description 12/15/2024 11:30 AM EDT Office [place] [address] Charline Ziegler MD [facility] [place] [address] documented as of this encounter Visit Diagnoses Not on filedocumented in this encounter Care Teams Circus Rider Relationship Specialty Start Date End Date Reji Adams MD [facility] [place] [address] PCP - General General Internal Medicine 07/13/15 documented as of this encounter
--- OUTSIDE RECORDS SUMMARY | 2024-07-09 11:13 | XMS_ITS | Encounter Summary ---
Author Organization [facility] [place] [address] Care Team Providers Care Item Processor Name Role Phone Reji Adams MD Primary Care Provider [phone] Reason for Visit * Reason Onset Date Comments Medication Refill 10/22/2018 Encounter Details Date Type Department Care Team (Late st Contact Info) Description 10/22/2018 Refill Internal Medicine at [address] [address] Reji Adams MD [facility] [place] [address] Social History Tobacco Use Types Packs/Day Years [...] 11:30 AM EDT Office Visit [place] [address] Charline Ziegler MD [facility] [place] [address] documented as of this encounter Visit Diagnoses Not on filedocumented in this encounter Care Teams Item Processor Relationship Specialty Start Date End Date Reji Adams MD [facility] [place] [address] PCP - General General Internal Medicine 07/13/15 documented as of this encounter
--- OUTSIDE RECORDS SUMMARY | 2024-07-09 11:13 | XMS_ITS | Encounter Summary ---
Author Organization [facility] [place] [address] Care Team Providers Care Taping Supervisor Name Role Phone Reji Adams MD Primary Care Provider [phone] Reason for Visit * Reason Onset Date Comments Medication Refill 08/31/2018 Encounter Details Date Type Department Care Team (Late st Contact Info) Description 08/31/2018 Refill Internal Medicine at [address] [address] Reji Adams MD [facility] GENERAL [place] [address] Social History Tobacco Use Types Packs/Day Years [...] 11:30 AM EDT Office Visit [place] [address] Charline Ziegler MD [facility] [place] [address] documented as of this encounter Visit Diagnoses Not on filedocumented in this encounter Care Teams Taping Supervisor Relationship Specialty Start Date End Date Reji Adams MD [facility] GENERAL [place] [address] PCP - General General Internal Medicine 07/13/15 documented as of this encounter
--- OUTSIDE RECORDS SUMMARY | 2024-07-09 11:13 | XMS_ITS | Encounter Summary ---
Author Organization [facility] [place] [address] Care Team Providers Care Director Cardiology Name Role Phone Reji Adams MD Primary Care Provider [phone] Reason for Visit * Reason Onset Date Comments Medication Refill 06/10/2018 Encounter Details Date Type Department Care Team (Late st Contact Info) Description 06/10/2018 Refill Internal Medicine at [address] [address] Reji Adams MD [facility] [place] [address] Social History Tobacco Use Types Packs/Day Years [...] AM EDT Office [place] [address] Charline Ziegler MD [facility] [place] [address] documented as of this encounter Visit Diagnoses Not on filedocumented in this encounter Care Teams Director Cardiology Relationship Specialty Start Date End Date Reji Adams MD [facility] [place] [address] PCP - General General Internal Medicine 07/13/15 documented as of this encounter
--- OUTSIDE RECORDS SUMMARY | 2024-07-09 11:13 | XMS_ITS | Encounter Summary ---
Author Organization [facility] [place] [address] Care Team Providers Care Clip Coater Name Role Phone Reji Adams MD Primary Care Provider [phone] Reason for Visit * Reason Onset Date Comments Medication Refill 09/21/2018 Encounter Details Date Type Department Care Team (Late st Contact Info) Description 09/21/2018 Refill Internal Medicine at [address] [address] Reji Adams MD [facility] [place] [address] Social History Tobacco Use Types Packs/Day Years [...] 11:30 AM EDT Office [place] [address] Charline Ziegler MD [facility] [place] [address] documented as of this encounter Visit Diagnoses Not on filedocumented in this encounter Care Teams Clip Coater Relationship Specialty Start Date End Date Reji Adams MD [facility] [place] [address] PCP - General General Internal Medicine 07/13/15 documented as of this encounter
--- OUTSIDE RECORDS SUMMARY | 2024-07-09 11:14 | XMS_ITS | Encounter Summary ---
Author Organization [facility] [place] [address] Care Team Providers Care Mapping Analyst Name Role Phone Reji Adams MD Primary Care Provider [phone] Reason for Visit * Reason Onset Date Comments Results 12/31/2017 Encounter Details Date Type Department Care Team (Late st Contact Info) Description 12/31/2017 Telephone Internal Medicine at [address] [id number] Adenike Marvin Results Social History Tobacco Use Types Packs/Day [...] encounter Miscellaneous Notes * Telephone Encounter - Adenike Marvin - 12/31/2017 11:06 AM EDT Message: Patient calling because he has sent myDH messages regarding results and is upset that he has not yet heard back. Informed pt that it looks as though the nurse is still waiting for an answer from the provider before they can let him know. Pt states this is making him very nervous and he wants a call today to let him know. Please call back as soon as possible. Caller and relationship (if other than patient-full name): Pt Best time to call back: any Ok to leave a message: [yes- please leave detailed message ] Ok to send my- message: [no] Offered Appointment: no MA/Nurse contacted via: Message: x Call: Pager: documented in this encounter Plan of Treatment Upcoming Encounters Date Type Department Care Team (Late st Contact Info) Description 12/15/2024 11:30 AM EDT Office Visit [place] [address] Charline Ziegler MD [facility] [place] [address] documented as of this encounter Visit Diagnoses Not on filedocumented in this encounter Care Teams Mapping Analyst Relationship Specialty Start Date End Date Reji Adams MD [facility] [place] [address] PCP - General General Internal Medicine 07/13/15 documented as of this encounter
--- OUTSIDE RECORDS SUMMARY | 2024-07-09 11:14 | XMS_ITS | Encounter Summary ---
Author Organization [facility] [place] [address] Care Team Providers Care Fire Regulator Name Role Phone Reji Adams MD Primary Care Provider [phone] Reason for Visit * Reason Onset Date Comments Results 12/29/2017 Encounter Details Date Type Department Care Team (Late st Contact Info) Description 12/29/2017 Telephone Internal Medicine at [place] [id number] Karma Bañuelos Results Social History Tobacco Use Types Packs/Day [...] * Telephone Encounter - Karma Bañuelos - 12/29/2017 12:40 PM EDT Requesting test results: Patient is calling to discuss test results he is concerned with them and the fact that no one has called to discuss as of yet Type of Test: blood Date of Test: 12/26 Where Test was performed: [facility] Who ordered the Test: Virgen Caller and relationship (if other than patient-full name): Ken Best time to call back: any Ok to leave a message: yes Ok to send my- message MA/Nurse contacted via: Message: yes Call: yes, no answer Pager: no documented in this encounter Plan of Treatment Upcoming Encounters Date Type Department Care Team (Late st Contact Info) Description 12/15/2024 11:30 AM EDT Office Visit [place] [address] Charline Ziegler MD [facility] [place] [address] documented as of this encounter Visit Diagnoses Not on filedocumented in this encounter Care Teams Fire Regulator Relationship Specialty Start Date End Date Reji Adams MD [facility] [place] [address] PCP - General General Internal Medicine 07/13/15 documented as of this encounter
--- OUTSIDE RECORDS SUMMARY | 2024-07-09 11:14 | XMS_ITS | Encounter Summary ---
Author Organization [facility] Address [facility] [place] [address] Care Team Providers Care Traffic Director Name Role Phone Reji Adams MD Primary Care Provider [phone] Encounter Details Date Type Department Care Team (Late st Contact Info) Description 04/30/2018 Orders [place] [phone] Frantz Olivas MD [facility] [place] [address] Thyroiditis Social History Tobacco Use Types Packs/Day [...] 11:30 AM EDT Office [place] [address] Charline Ziegler MD [facility] [place] [address] documented as of this encounter Results * TSH (05/01/2018 7:11 AM EDT) Thyroid Stimulating Hormone 3.05 0.27 - 4.20 mlU/ML [facility] Blood specimen (specimen) 05/01/2018 7:11 AM EDT 05/01/2018 7:22 AM EDT Narrative Resulting Agency Comment Spec In Lab Frantz Olivas MD CHEMISTRY ORDERABLES [facility] [place] [address] * (ABNORMAL) Thyroid peroxidase antibody (05/01/2018 7:11 AM EDT) Pathologist [facility] Thyroperoxidase Ab 111(H) <=34 IU/mL [facility] Blood specimen (specimen) 05/01/2018 7:11 AM EDT 05/01/2018 11:08 AM EDT Narrative Resulting Agency Comment Spec In Lab Frantz Olivas MD IMMUNOLOGY ORDERABLE S [facility] [place] [address] * T3 Total (05/01/2018 7:11 AM EDT) T3 Total 106 75 - 170 ng/dL [facility] Blood specimen (specimen) 05/01/2018 7:11 AM EDT 05/01/2018 7:22 AM EDT Narrative Resulting Agency Comment Spec In Lab Frantz Olivas MD CHEMISTRY ORDERABLES Performing Organization Address City/[facility]/ZIP Co de Phone Number [facility] [place] [address] * T4, free (05/01/2018 7:11 AM EDT) Free T4 1.08 0.93 - 1.70 ng/dL [facility] Blood specimen (specimen) 05/01/2018 7:11 AM EDT 05/01/2018 7:22 AM EDT Narrative Resulting Agency Comment Spec In Lab Frantz Olivas MD CHEMISTRY ORDERABLES Performing Organization Address [facility] Co de Phone Number [facility] [place] [address] * Cortisol (05/01/2018 7:11 AM EDT) Cortisol 12.9 mcg/dL [facility] Comment: Reference ranges: ??AM (6-10am): ??4.8-19.5 mcg/dL ??PM (4-8pm) : ??2.5-11.9 mcg/dL Blood specimen (specimen) 05/01/2018 7:11 AM EDT 05/01/2018 7:22 AM EDT Narrative Resulting Agency Comment Spec In Lab Frantz Olivas MD CHEMISTRY ORDERABLES Performing Organization Address [facility] Co de Phone Number [facility] [place] [address] documented in this encounter Visit Diagnoses Diagnosis Thyroiditis Thyroiditis, unspecified documented in this encounter Care Teams Traffic Director Relationship Specialty Start Date End Date Reji Adams MD [facility] GENER[facility] [place] [address] PCP - General General Internal Medicine 07/13/15 documented as of this encounter
--- OUTSIDE RECORDS SUMMARY | 2024-07-09 11:14 | XMS_ITS | Encounter Summary ---
Author Organization [facility] Address [facility] [place] [address] Care Team Providers Care Feltmaker Name Role Phone Reji Adams MD Primary Care Provider [phone] Reason for Visit * Reason Comments Results Labs. Follow up. Sto mach issues. Encounter Details Date Type Department Care Team (Late st Contact Info) Description 11/10/2017 1:20 PM EDT Office Visit Internal Medicine at [address] [address] Reji Adams MD [facility] GENERAL [place] [address] Other chronic gastritis without hemorrhage; Chronic fatigue Social History Tobacco Use Types Packs/Day Years [...] Sign Reading Time Taken Comments Blood Pressure 126/77 11/10/2017 1:00 PM EDT Pulse 73 11/10/2017 1:00 PM EDT Temperature 36.8 ??C (98.2 ??F) 11/10/2017 1:00 PM ED T Respiratory Rate 14 11/10/2017 1:00 PM EDT Oxygen Saturation 100% 11/10/2017 1:00 PM EDT Inhaled Oxygen Concentration - - Weight 93 kg (205 lb) 11/10/2017 1:00 PM EDT Height - - Body Mass Index 29.32 08/22/2017 11:12 AM EST documented in this encounter Progress Notes * Reji Adams MD - 11/10/2017 1:20 PM EDT ESTABLISHED PATIENT VISIT I. HISTORY a. Reason(s) for Visit: Ken Mckeon 72 y.o. male who presents today due to complaint(s) of: Chief Complaint Patient presents with ??? Results Labs. Follow up. Stomach issues. b. History of Present Illness:[] Wanted to discussed testosterone which is 493 currently. Has ongoing fatigue and low energy. Having some abd discomfort x 5 days. Took nexium for 2 days without improvement. EGD showed gastritis likely from NSAid use. c. Review of Systems: Constitutional - no fevers, chills, weight loss or gain, fatigue Cardiovascular - No CP, palpitations, angina, MARTIN, SOB Respiratory - No SOB, MARTIN, wheeze, cough, sputum production HEENT - No diffculty swallowing, hearing, No nasal congestion or postnasal drip Gastrointestinal - see HPI Musculoskeletal - No weakness, pain at rest or with movement All other systems negative d. PM Patient Active Problem List Diagnosis ??? Chronic left shoulder pain ??? Arthritis [...] week Comment: rarely II. PHYSICAL EXAM: BP 126/77 Pulse 73 Temp 36.8 ??C (98.2 ??F) (Oral) Resp 14 Wt 93 kg (205 lb) SpO2 100% BMI 29.32 kg/m2 General - No acute distress, conversing without difficulty. ENT - oropharynx without lesions. Eyes - EOMI. No scleral icterus Neck - No lymphadenopathy, supple, no masses Lungs - Clear to auscultation Heart - RRR, S1,S2, no murmur, gallop or rub. Abdomen/GI - Soft, mild epigastric tenderness, normal active bowel sounds, neg hsm or masses. Extremities - No clubbing, cyanosis or edema. III. ASSESSMENT/PLAN:Ken Mckeon 72 y.o. male presenting for f/u. Ken was seen today for results. Diagnoses and all orders for this visit: Other chronic gastritis without hemorrhage - Will hold asa for one month and see if sxs improve Chronic fatigue - Discussed that is not testosterone related - Feel likely depression vs stress but pt declines medication for this Meds reconciled documented in this encounter Plan of Treatment Upcoming Encounters Date Type Department Care Team (Late st Contact Info) Description 12/15/2024 11:30 AM EDT Office [place] [address] Charline Ziegler MD [facility] [place] [address] documented as of this encounter Visit Diagnoses Diagnosis Other chronic gastritis without hemorrhage Chronic fatigue Other malaise and fatigue documented in this encounter Care Teams Feltmaker Relationship Specialty Start Date End Date Reji Adams MD [facility] GENERAL [place] [address] PCP - General General Internal Medicine 07/13/15 documented as of this encounter
--- OUTSIDE RECORDS SUMMARY | 2024-07-09 11:14 | XMS_ITS | Encounter Summary ---
Author Organization [facility] [place] [address] Care Team Providers Care Driver Recruiter Name Role Phone Reji Adams MD Primary Care Provider [phone] Reason for Referral * Consultation (Urgent) - Closed Specialty Diagnoses / Procedures Referred By Dgulas arizmendi Referred To Contact Gastroenterology Diagnoses Constipation, unspecified constipation type Geno Burris MOBILE PAINT SPECIALIST [facility] [place] [address] Amanda Burroughs APRN [address] [place] [address] Referral ID Status Reason Start Date Expiration Date V isits Requested Visits Authorized [id number] Closed Consult, Test & Treat 07/18/2017 07/18/2018 1 1 Reason for Visit * Reason Comments Follow-up Encounter Details Date Type Department Care Team (Late st Contact Info) Description 07/18/2017 1:00 PM EST Office Visit Internal Medicine at [facility] [place] [phone] Geno Burris MOBILE PAINT SPECIALIST [facility] [place] [address] Constipation, unspecified constipation type; Adjustment disorder, unspecified type Social History Tobacco Use Types [...] Sign Reading Time Taken Comments Blood Pressure 122/71 07/18/2017 12:50 PM EST Pulse 77 07/18/2017 12:50 PM EST Temperature 36.8 ??C (98.3 ??F) 07/18/2017 12:[address] Respiratory Rate 16 07/18/2017 12:50 PM EST Oxygen Saturation 99% 07/18/2017 12:50 PM EST Inhaled Oxygen Concentration - - Weight 94.4 kg (208 lb 3.2 oz) 07/18/2017 12:50 PM EST Height 178 cm (5' 10.08) 07/18/2017 12:50 PM ES T Body Mass Index 29.81 07/18/2017 12:50 PM EST documented in this encounter Progress Notes * Geno Burris, MOBILE PAINT SPECIALIST - 07/18/2017 1:00 PM EST Subjective: Patient ID: Ken Mckeon is a 71 y.o. male. Pt of PCP Dr Reji Adams HPI Chief Complaint Patient presents with ??? Follow-up Mr Mckeon is here with concern for constipation x 7 weeks . He has no clue as to why his BM pattern changed from the previous once a day .,to a period of pencil thin BM . At that point he felt evacuated , with no sense of and cramping or urgency , but then it changed , again , it just stopped . His last BM was this morning . This was a small BM , The prior evacuation was also small, about 2 days ago He has had no nocturnal disruption , no fecal incontinence He has passed no blood, pus or mucus He has not noted gassiness He feels like he has used ' every product available . He has increased Miralax to BID ( 1 capful each time ) , He presented to the ED on and and then reported that he had about 2 to 3 weeks of decreased stool output , then with bloating . At the point he reported that he had used Miralax, Mag Citrate , prune juice and Dulcolax Suppositories and senna tea . He has not resorted to disimpacting himself , but emphasizes that when he inserts a suppository that is not stool in the rectal vault . In the ED he had a KUB and also and ABD CT scan which showed no obstruction , was negative with exception of noting some fluid filled ascending colon and a decompressed distal colon . He was advised that imaging did not support that he was constipated as the stool burden was low On June 25 , he was seen in GI by Amanda Burroughs . Recommend bathroom routines. Recommend squatty potty/foot stool. Recommend miralax 1/2-1 capful every day at bedtime. Consider glycerin suppository if NO bowel movement after 2-3 days. We reviewed appropriate administration of laxative suppositories. We reviewed the definition of normal bowel movements (between 3 per day to 3 per week). Recommend follow up if his symptoms haven't improved in 2-3 weeks. Consider utility of HBT. Consider utility of anorectal manometry. Consider utility of repeat colonoscopy. He reports that he did not understand he was encouraged to follow-up in not improved with the plan as follows He did not increase water , attributing this to having an enlarged prostate ?? PLAN 1. Limit fiber to no more than 20-25 grams per day. 2. Low-FODMAP diet for 2 weeks, gradually reintroduce one food at a time to identify triggers 3. Squatty potty or foot stool 4. Bathroom routine-same time every day for at least 5 minutes 5. Miralax 1/2- 1 capful every day at bedtime 6. Glycerin suppository if no bowel movement after 2-3 days, stimulate the anal canal by running your finger around (place pressure) three times 7. If not improved within 2-3 weeks, he will send me a message 8. Follow up as needed He then was seen by Marisa New And Marielena Vo on July 09, 2017 . anxiety and depression presenting with now chronic constipation, bloating, and epigastric pain. Could be H pylori infection but seems to have a very large stress component to this too. Ulcer unlikely given low level of pain and acuity of onset. Doubt GI carcinoma as colo last done in [address] without any concerning findings. Acute onset gastroparesis unlikely. Possibly atypical GERD. Diagnoses and all orders for this visit: Chronic constipation, bloating, epigastric pain - Helicobacter pylori Antigen Stool - Push fluids - Increase MiraLax to once in the morning and once at night [] Take until bowel movements become regular - Start PPI 30 minutes before a meal - Stress reduction techniques - Follow-up if symptoms do not improve He reports a good appetite , no N or V He has not had a change in his weight Last colonoscopy was 2013 . He does endorse that he lives in a stressful environment which he attributes to his [employer] withhis long time partner Results: XR Abdomen Flat & Upright [[id number]] 06/19/2017 FINDINGS: Air is seen in scattered nondilated small bowel. Air and fecal material are seen in scattered loops of colon to level of the rectosigmoid. Nonspecific few small air-fluid levels are seen in the right mid abdomen. No abnormal abdominal calcifications. The lung bases are clear. Degenerative changes of the hips and lumbar spine. IMPRESSION Nonobstructive bowel gas pattern. No evidence of free air. Results: CT Abdomen & Pelvis w Contrast 2016 IMPRESSION No acute findings. No visible etiology for patient's symptoms. ?? Review of Systems Objective: BP 122/71 (BP Location (NBP): Right arm, Patient Position: Sitting, BP Cuff Sizes: Large Adult (32-43 cm)) Pulse 77 Temp 36.8 ??C (98.3 ??F) (Oral) Resp 16 Ht 178 cm (5' 10.08) Wt 94.4 kg (208 lb 3.2 oz) SpO2 99% BMI 29.81 kg/m2 Patient reported measures: Pain:5 Physical Health:Very Good Fall: PHQ-9 QUESTIONNAIRE SCORE ONLY (AMB) 11/22/2016 PHQ - 9 Score (Clinic) 6 (Mild Depression) Some recent data might be hidden Wt Readings from Last 3 Encounters: 07/18/17 94.4 kg (208 lb 3.2 oz) 07/09/17 95.4 kg (210 lb 6.4 oz) 06/26/17 93.4 kg (206 lb) Physical Exam Constitutional: He appears well-developed and well-nourished. No distress. Abdominal: Soft. Bowel sounds are normal. He exhibits no distension and no mass. There is tenderness (LLQ , no guarding or rebound . some increased tynpany in the RLQ, this is nontender ). There is no rebound and no guarding. Skin: Skin is warm and dry. He is not diaphoretic. Psychiatric: His behavior is normal. Judgment and thought content normal. Pleasant , very sl ruminating thought . Communicative , very slightly depressed affect, but he is very responsive to discussion Vitals reviewed. Assessment and Plan: 1. Constipation, unspecified constipation type - Magnesium; Future - TSH; Future - Referral to Gastroenterology - Magnesium - TSH ? Consider r'ship to BPH 2. Adjustment disorder, unspecified type Today pt will meet with Marianela MIRANDA today we have discussed the potential role of stressors on bowel activity He will reschedule with GI He has also decided to return to the care of Dr Casanova at [facility]rology On July 30. It is the patient's understanding that [facility] neurologist has advised him that his neck and back problemsmight contribute to his constipation . Lab Results Component Value Date TSH 1.04 04/03/2017 Future Appointments Date Time Provider Department Center 07/24/2017 11:50 AM [facility] MR 6 MH [facility] 10/06/2017 12:40 PM LAB, [facility] L [facility] 10/06/2017 1:40 PM Tobias Mcginnis MD [facility] documented in this encounter Plan of Treatment Upcoming Encounters Date Type Department Care Team (Late st Contact Info) Description 12/15/2024 11:30 AM EDT Office [place] [address] [facility] [place] [address] Scheduled Referrals Name Type Priority Associated Diagnoses Order Schedule Referral to Gastroenterology Outpatient Referral Routine Constipation, unspecified constipation type Ordered: 07/18/2017 documented as of this encounter Procedures Procedure Name Priority Date/Time Associated Diagnosis Comments TSH Routine 07/18/2017 2:09 PM EST Constipation, unspecified constipation type MAGNESIUM Routine 07/18/2017 2:09 PM EST Constipation, unspecified constipation type documented in this encounter Results * TSH (07/18/2017 2:09 PM EST) Thyroid Stimulating Hormone 0.75 0.27 - 4.20 mlU/ML [facility] Blood specimen (specimen) 07/18/2017 2:09 PM EST 07/18/2017 2:11 PM EST Narrative Resulting Agency Comment Spec In Lab Geno Burris MOBILE PAINT SPECIALIST CHEMISTRY ORDER DALILA Performing Organization Address City/[facility]/ZIP Co de Phone Number [facility] [place] [address] * Magnesium (07/18/2017 2:09 PM EST) Magnesium 0.94 0.69 - 1.07 mmol/L [facility] Blood specimen (specimen) 07/18/2017 2:09 PM EST 07/18/2017 2:11 PM EST Narrative Resulting Agency Comment Spec In Lab Geno Burris MOBILE PAINT SPECIALIST CHEMISTRY ORDER DALILA Performing Organization Address [facility] Co de Phone Number [facility] [place] [address] documented in this encounter Visit Diagnoses Diagnosis Constipation, unspecified constipation type Adjustment disorder, unspecified type documented in this encounter Care Teams Driver Recruiter Relationship Specialty Start Date End Date Reji Adams MD [facility] [place] [address] PCP - General General Internal Medicine 07/13/15 documented as of this encounter
--- OUTSIDE RECORDS SUMMARY | 2024-07-09 11:14 | XMS_ITS | Encounter Summary ---
Author Organization [facility] Address [facility] [place] [address] Care Team Providers Care Sole Cutter Name Role Phone Reji Adams MD Primary Care Provider [phone] Encounter Details Date Type Department Care Team (Late st Contact Info) Description 06/27/2017 [place] [address] Tobias Mcginnis MD [facility] [place] [address] Social History Tobacco Use Types Packs/Day Years [...] * Telephone Encounter - Amrita Das - 06/27/2017 8:09 AM EST LM to schedule follow up with Dr. Mcginnis with a PSA prior (sometime in September 2017). documented in this encounter Plan of Treatment Upcoming Encounters Date Type Department Care Team (Late st Contact Info) Description 12/15/2024 11:30 AM EDT Office Visit [place] [address] Charline Ziegler MD [facility] [place] [address] documented as of this encounter Visit Diagnoses Not on filedocumented in this encounter Care Teams Sole Cutter Relationship Specialty Start Date End Date Reji Adams MD [facility] [place] [address] PCP - General General Internal Medicine 07/13/15 documented as of this encounter
--- OUTSIDE RECORDS SUMMARY | 2024-07-09 11:14 | XMS_ITS | Encounter Summary ---
Author Organization [facility] Address [facility] [place] [address] Care Team Providers Care Parts Advisor Name Role Phone Reji Adams MD Primary Care Provider [phone] Encounter Details Date Type Department Care Team (Late st Contact Info) Description 10/16/2017 [place] [address] Tobias Mcginnis MD [facility] [place] [address] Social History Tobacco Use Types Packs/Day Years [...] * Telephone Encounter - Amrita Das - 10/16/2017 4:28 PM EDT Patient called and was wondering if a testosterone test could be done before his appointment next week with Dr. Mcginnis. He does not need a call back. Thank you. documented in this encounter Plan of Treatment Upcoming Encounters Date Type Department Care Team (Late st Contact Info) Description 12/15/2024 11:30 AM EDT Office [place] [address] Charline Ziegler MD [facility] [place] [address] documented as of this encounter Visit Diagnoses Not on filedocumented in this encounter Care Teams Parts Advisor Relationship Specialty Start Date End Date Reji Adams MD [facility] GENER[facility] [place] [address] PCP - General General Internal Medicine 07/13/15 documented as of this encounter
--- OUTSIDE RECORDS SUMMARY | 2024-07-09 11:14 | XMS_ITS | Encounter Summary ---
Author Organization [facility] Address [facility] [place] [address] Care Team Providers Care Tire Specialist Name Role Phone Reji Adams MD Primary Care Provider [phone] Encounter Details Date Type Department Care Team (Late st Contact Info) Description 04/27/2018 11:20 AM EDT [place] [address] Tobias Mcginnis MD [facility] [place] [address] Elevated PSA Social History Tobacco Use Types [...] Sign Reading Time Taken Comments Blood Pressure 111/70 04/27/2018 11:15 AM EDT Pulse 63 04/27/2018 11:15 AM EDT Temperature - - Respiratory Rate - - Oxygen Saturation 99% 04/27/2018 11:15 AM EDT Inhaled Oxygen Concentration - - Weight - - Height - - Body Mass Index - - documented in this encounter Progress Notes * Tobias Mcginnis MD - 04/27/2018 11:20 AM EDT Urologic Outpatient Consult Note HPI: Ken Mckeon is a 72 y.o. year old male referred for LUTS, [...] voiding, he does not have nocturia/frequency/urgency. IPSS - pleased PSA found to be elevated and persistently elevated on recheck PSA History: 06/2015 - 3.4 02/2017 - 6.19 03/2018 - TRUS biopsy negative 09/2017 - 6.62 04/2018 - 6.59 He presents today in follow-up. No changes [...] by Ximena Gu MD at [facility] ENDOSCOPY ??? PRO LIGATE/STRIP LONG SAPH VEIN BELW SEP-FEM JUNC 06/02/2012 LIGATION\DIV\STRIP GREATER SAPHENOUS VEIN performed by BEATRICE RODRÍGUEZ at [facility] MAIN OR ??? PRO PHLEB VEINS - EXTREM - TO 20 06/02/2012 STAB PHLEBECTOMY KARLI VEINS, EXTREMITY 10-20 INCISIONS-SANTI performed by BEATRICE RODRÍGUEZ at [facility] MAIN OR ??? PRO UPPER GI ENDOSCOPY, BIOPSY N/A 09/02/2017 EGD WITH BIOPSY (WRVU 2.49) performed by Rahul Escobar MD at [facility] ENDOSCOPY SOCHx: Social History Social History ??? Marital status: Spouse name: N/A ??? Number of children: N/A ??? Years of education: N/A Occupational History ??? retired Social History Main Topics ??? Smoking status: Never Smoker ??? Smokeless tobacco: Current User Types: Chew Comment: 3 cans/ week. ??? Alcohol use 0.0 - 0.6 oz/week 0 - 1 Cans of beer per week Comment: rarely ??? Drug use: No ??? Sexual activity: Yes Partners: Female Other Topics Concern ??? Not on file Social History Narrative FamHx: Negative for malignancies ROS: The patients [...] obvious abnormalities FREDI deferred Urinalysis: Negative Imaging:NA NCI prostate cancer risk calculator: 8 % risk of high grade prostate cancer 20 % risk of low grade prostate cancer 72 % chance of having a negative prostate biopsy Impression: #1 Elevated PSA with normal FREDI s/p negative biopsy 03/2017 #2 Irritative lower urinary tract symptoms, stable, not terribly bothersome, likley related to polydipsia Plan/Recommendations: # PSA / %free in 6 months # Lifestyle modifications for voiding complaints (decrease volume, avoid bladder irritants, timed voiding etc all reviewed with the patient and educational materials given) # If PSA trends upwards ir %free is concerning the I will obtain mpMRI documented in this encounter Plan of Treatment Upcoming Encounters Date Type Department Care Team (Late st Contact Info) Description 12/15/2024 11:30 AM EDT Office [place] [address] Charline Ziegler MD [facility] [place] [address] documented as of this encounter Results * (ABNORMAL) PSA, total and free (10/26/2018 10:10 AM EDT) Prostate Specific Antigen (Ultrasensitiv e) 8.11(H) 0.00 - 4.00 ng/mL [facility] Prostate Specific Antigen, Free 1.0 ng/mL [facility] PSA % Free 12 % [facility] Comment: Probability of finding SEWING MACHINE MECHANIC on needle biopsy by age in years: [...] Lab Tobias Mcginnis MD CHEMISTRY ORDERABL ES [facility] [place] [address] documented in this encounter Visit Diagnoses Diagnosis Elevated PSA Elevated prostate specific antigen (PSA) documented in this encounter Care Teams Tire Specialist Relationship Specialty Start Date End Date Reji Adams MD [facility] [place] [address] PCP - General General Internal Medicine 07/13/15 documented as of this encounter
--- OUTSIDE RECORDS SUMMARY | 2024-07-09 11:14 | XMS_ITS | Encounter Summary ---
Author Organization [place] [address] Care Team Providers Care Medical Diagnostic Radiographer Name Role Phone Reji Adams MD Primary Care Provider [phone] Reason for Visit * Reason Onset Date Comments Blurred Vision 12/24/2017 Weight Loss 12/24/2017 Encounter Details Date Type Department Care Team (Late st Contact Info) Description 12/24/2017 Telephone Internal Medicine at [address] [address] Dianelys Cruz Blurred Vision; Weight Loss Social History Tobacco Use Types Packs/Day Years [...] encounter Miscellaneous Notes * Telephone Encounter - Dianelys Cruz - 12/24/2017 10:08 AM EDT Message: patient called stating that he has been dealing with some blurred vision off and on for a while now and has been losing weight without trying. Patient declined speaking with a nurse and wanted to schedule an appointment to be checked out and to make sure it is not diabetes. He is currentlyscheduled for today 5/30 at 4:[address] New. Aircraft Powerplant Repairer informed patient that a message was being sent to the nurse to inform of situation and so she can call back if needed. He can be reached [phone]. Caller and relationship (if other than patient-full name): patient Best time to call back: Ok to leave a message: [] Ok to send my- message: [] Offered Appointment: today, 12/24 @4:[address] Virgen PAUL/Nurse contacted via: Message: x Call: Pager: documented in this encounter Plan of Treatment Upcoming Encounters Date Type Department Care Team (Late st Contact Info) Description 12/15/2024 11:30 AM EDT Office [place] [address] Charline Ziegler MD [facility] [place] [address] documented as of this encounter Visit Diagnoses Not on filedocumented in this encounter Care Teams Medical Diagnostic Radiographer Relationship Specialty Start Date End Date Reji Adams MD [facility] GENER[place] [address] PCP - General General Internal Medicine 07/13/15 documented as of this encounter
--- OUTSIDE RECORDS SUMMARY | 2024-07-09 11:14 | XMS_ITS | Encounter Summary ---
Author Organization [facility] Address [facility] [place] [address] Care Team Providers Care Sandwich Maker Name Role Phone Reji Adams MD Primary Care Provider [phone] Reason for Visit * Reason Comments GI Problem * Consultation (Routine) - Closed Specialty Diagnoses / Procedures Referred By Duglas arizmendi Referred To Contact Gastroenterology Diagnoses abdominal discomfort, poor appetite, decreased bowel movements without stool burden seen on imaging Candace Adams MD [facility] [place] [address] [facility] [place] [address] [place] [address] Referral ID Status Reason Start Date Expiration Date V isits Requested Visits Authorized [id number] Closed Consult, Test & Treat 06/19/2017 06/19/2018 1 1 Encounter Details Date Type Department Care Team (Late st Contact Info) Description 06/25/2017 2:00 PM EST Office [place] [address] Amanda Burroughs, [facility] [address] [place] [address] Constipation, unspecified constipation type; Dyspepsia Social History Tobacco Use Types Packs/Day Years [...] Sign Reading Time Taken Comments Blood Pressure 139/77 06/25/2017 2:00 PM EST Pulse 70 06/25/2017 2:00 PM EST Temperature - - Respiratory Rate - - Oxygen Saturation - - Inhaled Oxygen Concentration - - Weight 94.6 kg (208 lb 9.6 oz) 06/25/2017 2:00 P M EST Height 179.1 cm (5' 10.5) 06/25/2017 2:00 PM ES T Body Mass Index 29.51 06/25/2017 2:00 PM EST documented in this encounter Patient Instructions * Patient Instructions* Amanda Burroughs APRN - 06/25/2017 2:00 PM EST 1. Limit fiber to no more than [...] 7. If not improved within 2-3 weeks, send me a message 8. Follow up as needed documented in this encounter Progress Notes * Amanda Burroughs APRN - 06/25/2017 2:00 PM EST STONECUTTER APPRENTICE HAND: Amanda Burroughs APRN PCP: Reji Adams MD REQUESTING PROVIDER: Ron Burns MD REASON FOR CONSULTATION This is a 71 y.o. male with a history significant for anxiety, depression, and urinary urgency. I am seeing him as a new patient today in consult for abdominal discomfort, poor appetite, and decreased bowel movements without stool burden on imaging. GI PROBLEM LIST 1. CONSTIPATION --COLONOSCOPY 09/07/13; Impression: ?- Normal colon ? - Normal terminal ileum ? -Moderate external and internal ? hemorrhoids --ABD XR 06/17/17; ?? FINDINGS: No free intraperitoneal air is seen, evaluation is limited by the supine positioning of the patient. Air is seen in the nondistended stomach, loops of small bowel and throughout the colon to the rectum. Moderate fecal load in the left hemicolon and rectum. No pneumatosis or portal venous gas. No radiodense urolithiasis. Multilevel degenerative disc disease changes of the lumbar spine. Posterior decompression at L4-L5. Fusion at the left sacroiliac joint. Bilateral hip osteoarthropathy is partially visualized. ?? IMPRESSION Moderate fecal load in the left hemicolon and rectum. --CT SCAN abd/pelvis w/contrast 06/18/17; FINDINGS: ?? Lower chest: Normal. ?? Liver: Normal size and attenuation without lesions. Bile ducts: Nondilated. Gallbladder: No calcified gallstones. Normal caliber wall. Pancreas: Normal attenuation without ductal dilatation. Spleen: Normal. Adrenals: Normal. Kidneys: Centimeters simple cortical cyst RIGHT kidney. Smaller, RIGHT millimeter indeterminate cortical hypodensity. No renal collecting system obstruction bilaterally. ?? Vasculature: No aneurysm. Lymph Nodes: No enlarged lymph nodes. Bowel: No small bowel obstruction. No areas of abnormal small bowel wall thickening. The terminal ileum is normal. The ascending colon this is fluid-filled. Distal to this the colon is decompressed. Peritoneum and mesentery: No ascites, free air, or loculated fluid collection. No mesenteric inflammation. Abdominal wall: Normal. ?? Urinary Bladder: Limited evaluation Reproductive organs: Normal. Osseous structures: No suspicious lesions. ?? IMPRESSION No acute findings. No visible etiology for patient's symptoms. --ABD XR 06/19/17; FINDINGS: Air is seen in scattered nondilated [...] gas pattern. No evidence of free air. HPI COMMENTS Prior to the onset of his presenting symptoms today he had regular bowel consistency and frequency.He comes today with a timeline: Had been taking 2 tsp benefiber per day since his colonoscopy in 2013 until the onset of symptoms. Approximately 10-11 weeks ago started taking pravastatin Approximately 6 weeks ago started taking Coenzyme Q10 Approximately 4 weeks ago, developed constipation. Less quantity of stool and frequency of movements at this time, meaning one bowel movement per day. Stopped taking pravastatin and coenzyme Q10 because he felt this was contributing. There was then a change in stool quantity and size. [place] type 4, but small like a tootsie roll. Approximately 2 weeks ago, stopped having bowel movements. Started taking miralax- approximately 4 or 5 doses without relief. He then tried magnesium citrate (2 1/2 bottles in 4 days). This produced liquid stool, dulcolax, fleets enema. Had an abdominal x-ray, which showed a blockage. Went to the ED for an enema. CT scan was done. No blockage on CT scan. Sent home with miralax. Wentback into the ED after Thanksgiving. Had another abdominal x- ray. Was then told there isn't a blockage. Has not taken any laxatives since this last trip to the ED. Denies dysphagia, odynophagia, and globus. Reflux symptoms approximately one to two times per day. Denies bloating and gas. Has to strain to pass gas. Denies chronic NSAID use. No anemia. Currently he reports one small formed bowel movement every day. Currently straining to initiate a bowel movement. Small amounts. Difficulty emptying. Has tried changing his diet. Denies blood and mucus in stool. No anal or rectal pain. Denies abdominal cramping and fecal urgency. Good appetite, but he has been avoiding eating. Has lost a few pounds since this all started. Denies early satiety. No nausea or vomiting. Also he endorses he doesn't have the urge to move his bowels, but experiences a sensation in his stomach like it's empty. This is his cue to attempt a bowel movement. He has been increasing the amount of fiber he consumes. This isn't beneficial. Has been avoiding protein because I know it's harder to digest. Feels he may have H. Pylori. Endorses a history of neck surgery. Lumbar foraminotomy. Is concerned this may have effected his motility. Anxiety is currently managed with xanax, prn. Urinary issues have improved since constipation has started. ROS Notable for the gastrointestinal symptoms as described above. CONSTITUTIONAL: Denies anorexia, fever, or unintended weight change EYES: Denies red or painful eyes ENT: Denies oral ulcers, dysphagia, odynophagia, globus. RESPIRATORY: Denies cough, shortness of breath, wheezing CV: Denies palpitations, chest pain. : Denies dysuria, urinary incontinence, or dyspareunia. MUSC/SKELETAL: Back pain. Neck pain. INTEGUMENTARY: Denies recent skin rash or lesions. NEURO: Denies neuropathy, loss of sensation, facial drooping or unilateral weakness. PSYCH: Anxiety. ENDO: Denies frequent urination and excessive hunger or thirst. HEM/LYMPH: Denies easy bleeding or bruising. ALL/IMMUNO: Denies seasonal allergies, frequent colds. ALLERGIES Allergies Allergen Reactions ??? Penicillins Anaphylaxis Tongue swelling CURRENT MEDICATIONS Medications reviewed and reconciled in e-DH Current Outpatient Prescriptions: ??? sodium phosphates (FLEET) Enema, Place 1 Bottle rectally once as needed for Constipation for upto 1 dose., Disp: 135 mL, Rfl: 0 ??? aspirin 81 mg Tablet, Delayed Release (E.C.), Take 81 mg by mouth daily., Disp: , Rfl: ??? ibuprofen (ADVIL) 200 mg tablet, Take 400 mg by mouth every 6 hours as needed., Disp: , Rfl: ??? ALPRAZolam (XANAX) 0.25 mg tablet, Take 0.25 mg by mouth 3 times daily as needed., Disp: , Rfl: ??? multivitamin (THERAGRAN) tablet, Take 1 tablet by mouth daily., Disp: , Rfl: ??? Saw Cohagen 500 mg capsule, Take 500 mg by mouth daily., Disp: , Rfl: ??? naproxen sodium (ALEVE) 220 mg tablet, Take 220 mg by mouth as needed., Disp: , Rfl: MEDICAL HISTORY Past Medical History: Diagnosis Date ??? BPH (benign prostatic hyperplasia) ??? Neck pain 08/24/2012 ??? OA (osteoarthritis) of knee right SURGICAL HISTORY Past Surgical History: Procedure Laterality Date ??? [...] at [facility] OR SOCIAL HISTORY Currently retired in [employer]. Partner- 10 years. Has 3 kids; 2 girls, one boy HABITS Chews tobacco use. Rare alcohol use. Denies using other substances. FAMILY HISTORY Denies family history of celiac disease, esophageal cancer, stomach cancer, colon cancer, pancreatic or liver issues, and IBD. PHYSICAL EXAM: Most Recent Vitals: 06/25/17 1400 BP: 139/77 Pulse: 70 Height: Height: 179.1 cm (5' 10.5) Weight: Weight - Scale: 94.6 kg (208 lb 9.6 oz) Body mass index is 29.51 kg/(m^2). GENERAL: Healthy-appearing in no acute distress. Appears stated age. Appropriate weight for height. SKIN: No lesions, rashes, lumps, or angiomas on exposed skin. NECK: No adenopathy. No thyromegaly. HEENT: PERRL, EOMI, mucosa clear without ulceration or lesions, normal Dentition LUNGS: Clear to auscultation bilaterally COR: Regular, normal S1 and S2 without murmurs. ABD: Normal active BS. Soft, non-distended. No bruits. No tenderness to deep palpation in all 4 quadrants. No organomegaly. EXT: No cyanosis, clubbing, or edema. NEURO: Alert and oriented to person, place, time, and situation. Cranial nerves II-XII intact. PSYCH: Mood appropriate. Good eye contact. Normal interaction. Answers all questions appropriately. LABS: Lab Results Component Value Date WBC 7.0 06/19/2017 HGB 15.2 06/19/2017 HCT 43.4 06/19/2017 MCV 88.4 06/19/2017 PLATELET 176 06/19/2017 Lab Results Component Value Date NA 138 06/19/2017 K 3.9 06/19/2017 CL 99 06/19/2017 CO2 25 06/19/2017 BUN 9 (L) 06/19/2017 CREATININE 0.99 06/19/2017 GLUCOSE 82 06/19/2017 GLUCFASTING 90 11/19/2013 CALCIUM 9.5 06/19/2017 Lab Results Component Value Date ALT 14 06/18/2017 AST 22 06/18/2017 ALKPHOS 54 06/18/2017 BILITOT 1.0 06/18/2017 BILIDIR 0.2 06/18/2017 ALBUMIN 4.9 06/18/2017 PROT 7.6 06/18/2017 Lab Results Component Value Date LIPASE 41 06/19/2017 Lab Results Component Value Date BILIDIR 0.2 06/18/2017 Lab Results Component Value Date BILITOT 1.0 06/18/2017 Lab Results Component Value Date TSH 1.04 04/03/2017 ASSESSMENT This is a nice 71 y.o. male with a history significant for anxiety, depression, and urinary urgencywho comes to me today for evaluation of changes in bowel habits. He endorses constipation, which hedefines as very small, thin [place] type 4 bowel movement approximately once per day. This is a change from his previous bowel habits. Described as several well formed regular bowel movements per day. He attributes this change to new medication. He started taking pravastatin approximately 3 months ago. After taking this medication for approximately 2 months, his bowel movements decreased in both frequency and amount. His last colonoscopy was done in 2013. This was normal. He started taking Benefiber after the colonoscopy. However, Benefiber has not been promoting regular bowel movements with this change. He has tried multiple laxatives including MiraLAX, Dulcolax, fleets, and magnesium citrate. In fact, there seems to have been some overuse of laxatives. He went to the ED for an abdominalx-ray on June 17. This showed blockage. An enema was done in the emergency department. He hada CT scan following the enema. Was told he still had a blockage and was sent home with MiraLAX. This did not relieve his symptoms. He need another visit to the emergency department for an abdominal x-ray. This time it showed no blockage. Upon further history findings, he describes his symptoms as more dyspeptic in nature. My impression is that he has been attempting to relieve dyspeptic symptoms by passing stool. His high-fiber diet is most likely contributing to his discomfort. His admitted protein aversion and low BUN suggest a need for increased protein intake. There was a significant amount of tympany during percussion of his abdomen. Anxiety may also be contributing to the severity of his symptoms. He currently takes Xanax for this as needed. It may be beneficial to provide more effective anxiety management strategies in the setting of persistent visceral hypersensitivity. I am reassured by the multiple abdominal x-rays and CT scan from the past week and a half. I am also reassured by the colonoscopy in 2013. This was normal. 1. DYSPEPSIA Recommend limiting fiber to no more than 20-25 grams per day to decrease bloating in the GI tract. Recommend increasing protein intake. Recommend anxiety management. Consider long-term anxiety management plan rather than prn xanax, although he seemed resistant to this suggestion. Recommend low-FODMAP diet for 2-4 weeks to limit bloating. Consider utility of H. Pylori stool antigen for persistent symptoms. Consider a PPI. Consider TCA. 2. CONSTIPATION Recommend bathroom routines. Recommend squatty potty/foot stool. [...] anorectal manometry. Consider utility of repeat colonoscopy. PLAN 1. Limit fiber to no more [...] a message 8. Follow up as needed I have provided him with my contact information. He has been encouraged to contact me with any questions or concerns. TIME SPENT WITH PATIENT 57 minutes of this 61 minute visit were spent in [id number] discussion and counseling the patientas detailed per above. Signed, Amanda Burroughs APRN 06/26/17 7:30 AM Section of Gastroenterology & Hepatology [facility] documented in this encounter Plan of Treatment Upcoming Encounters Date Type Department Care Team (Late st Contact Info) Description 12/15/2024 11:30 AM EDT Office [place] [address] Charline Ziegler MD [facility] [place] [address] Scheduled Referrals Name Type Priority Associated Diagnoses Order Schedule Referral to Gastroenterology Outpatient Referral Routine Ordered: 06/19/2017 documented as of this encounter Visit Diagnoses Diagnosis Constipation, unspecified constipation type Dyspepsia Dyspepsia and other specified disorders of function of stomach documented in this encounter Care Teams Sandwich Maker Relationship Specialty Start Date End Date Reji Adams MD [facility] [place] [address] PCP - General General Internal Medicine 07/13/15 documented as of this encounter
--- OUTSIDE RECORDS SUMMARY | 2024-07-09 11:14 | XMS_ITS | Encounter Summary ---
Author Organization [facility] Address [facility] [place] [address] Care Team Providers Care Quality Director Name Role Phone Reji Adams MD Primary Care Provider Reason for Visit * Reason Comments Left Shoulder Pain s/p MRI Right Elbow Pain Encounter Details Date Type Department Care Team (Late st Contact Info) Description 06/26/2017 11:40 AM EST Office [place] [address] Roderick Perkins MD [facility] [place] [address] Chronic left shoulder pain Social History Tobacco Use Types Packs/Day [...] Sign Reading Time Taken Comments Blood Pressure 124/69 06/26/2017 11:57 AM EST Pulse 68 06/26/2017 11:57 AM EST Temperature - - Respiratory Rate - - Oxygen Saturation - - Inhaled Oxygen Concentration - - Weight 93.4 kg (206 lb) 06/26/2017 11:57 AM EST stated Height 179.1 cm (5' 10.5) 06/26/2017 11:57 AM Javi Shannon Body Mass Index 29.14 06/26/2017 11:57 AM EST documented in this encounter Progress Notes * Lauren Telles MD - 06/26/2017 11:40 AM EST CHIEF COMPLAINT: Left shoulder pain, right elbow pain. HISTORY OF PRESENT ILLNESS: Ken Mckeon is a 80-year-old gentleman known to the [facility] for his upper extremity pain issues. He notes mainly right elbow pain, left shoulder pain. He has received an injection most recently his right elbow. It reduces pain from 10 to 6-7/10 with some improvement. This was done about 2 weeks ago. So, he may still experience some improvement. He takes Tylenol occasionally as needed for the pain. He still struggles with his numbness and tingling in the right upper extremity, mostly in the radial nerve distribution. 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 He also has struggled with his left shoulder pain and had a repeat MRI. He is here to discuss the findings from the MRI and his options going forward as he still struggles with his pain at this time. PHYSICAL EXAM: Mr. Mckeon is calm, cooperative, polite, in no acute distress. Breathing comfortably on room air. Examination of the right upper extremity reveals intact elbow flexion and extension. He has fairly good range of motion. He is able to get to almost full extension, approximately 5-10 degrees shy and flexion to approximately 130 degrees. He has diminished sensation in the radial nerve distribution, however, he notes that he is able to feel light touch throughout the hand. He has a 2+ radial pulse, 5/5 mail forwarding system markup clerk strength, okay sign, well-healed carpal tunnel incision. Examination of the left upper extremity reveals fairly good range of motion with forward flexion to approximately 150 degrees, abduction 130 degrees, external rotation to approximately 35-40 degrees. Mild tenderness to palpation anteriorly. Distal motor and sensory exam within normal limits. RADIOGRAPHY: MRI was reviewed by myself and reviewed with the patient as well. 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 ASSESSMENT AND PLAN: Ken Mckeon is a 71-year-old gentleman who was in seen in follow up of right elbow pain, left shoulder pain. We discussed that releasing the cubital tunnel would likely not improve his numbness and tingling symptoms as the ulnar nerve does not appear to be clinically affected and that chasing the MRI findings would likely not provide reliable benefit to him. With regard to the right elbow injection, we discussed he may continue to see some improvement as the steroid sets in over time and then he could continue to treat symptomatically. Once the pain is unbearable, he can consider surgical options with our fluoroscopy and debridement. With regard to the left shoulder, we reviewed that there is no full thickness tear that would benefit from surgery or repair and that he can consider repeating injections as able. Otherwise, at this time, he is going to continue to treat symptomatically and is welcome to return to clinic when his pain is unbearable and he desires surgery. All other questions and concerns were addressed and answered. Mr. Mckeon was seen on an needed basis. * Roderick Perkins MD - 06/26/2017 11:40 AM EST Attending Addendum: The preceding portion of this note was written by Dr. Telles. I personally saw and evaluated the patient as well and I agree with the assessment and plan documented above. Roderick Perkins M.D., M.S. Outpatient Case Manager of Orthopaedic Surgery Shoulder, Elbow, and Sports Medicine Department [place] [address] documented in this encounter Plan of Treatment Upcoming Encounters Date Type Department Care Team (Late st Contact Info) Description 12/15/2024 11:30 AM EDT Office [place] [address] Charline Ziegler MD [facility] [place] [address] documented as of this encounter Visit Diagnoses Diagnosis Chronic left shoulder pain Pain in joint, shoulder region documented in this encounter Care Teams Quality Director Relationship Specialty Start Date End Date Reji Adams MD [facility] GENERAL [place] [address] PCP - General General Internal Medicine 07/13/15 documented as of this encounter
--- OUTSIDE RECORDS SUMMARY | 2024-07-09 11:14 | XMS_ITS | Encounter Summary ---
Author Organization [facility] [place] [address] Care Team Providers Care Psychometrician Name Role Phone Reji Adams MD Primary Care Provider Encounter Details Date Type Department Care Team (Latest Contact Info) Description 07/18/2017 12:09 PM EST - 07/18/2017 11:59 PM EST Hospital [place] [id number] Bloating; Epigastric pain Discharge Disposition: Home Social History Tobacco [...] Sig Dispensed Refills Start Date End Date multivitamin (THERAGRAN) tablet Take 1 tablet by mouth daily. aspirin 81 mg Tablet, Delayed Release (E.C.) Take 81 mg by mouth daily. 03/17/2023 ibuprofen (ADVIL) 200 mg tablet Take 400 mg by mouth every 6 hours as needed. 05/08/2018 ALPRAZolam (XANAX) 0.25 mg tablet Take 0.25 mg by mouth 3 times daily as needed. 03/19/2018 Saw [place] 500 mg capsule Take 500 mg by mouth daily. 03/14/2020 documented as of this encounter Plan of Treatment Upcoming Encounters Date Type Department Care Team (Late st Contact Info) Description 12/15/2024 11:30 AM EDT Office Visit [place] [address] Charline Ziegler MD [facility] [place] [address] documented as of this encounter Procedures Procedure Name Priority Date/Time Associated Diagnosis Comments HELICOBACTER PYLORI ANTIGEN STOOL Routine 07/18/2017 9:02 AM EST Bloating Epigastric pain documented in this encounter Results * Helicobacter pylori Antigen Stool (07/18/2017 9:02 AM EST) H pylori Ag Negative Negative [facility] Comment:Test performed by neel [email or web address]. H pylori Ag Comment See Comment [facility] Comment: Antimicrobials, proton pump inhibitors and bismuth preparations are known to suppress H pylori, and ingestion of these prior to H. pylori testing may cause false negative results. Stool specimen (specimen) 07/18/2017 9:02 AM EST 07/18/2017 12:29 PM EST Narrative Resulting Agency Comment Spec In Lab Mirlande New MD MICROBIOLOGY - GENER AL ORDERABLES [facility] [place] [address] documented in this encounter Visit Diagnoses Diagnosis Bloating Flatulence, eructation, and gas pain Epigastric pain Abdominal pain, epigastric documented in this encounter Care Teams Psychometrician Relationship Specialty Start Date End Date Reji Adams MD [facility] [place] [address] PCP - General General Internal Medicine 07/13/15 documented as of this encounter
--- OUTSIDE RECORDS SUMMARY | 2024-07-09 11:14 | XMS_ITS | Encounter Summary ---
Author Organization [facility] [place] [address] Care Team Providers Care Commercial Counsel Name Role Phone Reji Adams MD Primary Care Provider [phone] Reason for Visit * Reason Onset Date Comments Appointment 07/18/2017 Encounter Details Date Type Department Care Team (Late Contact Info) Description 07/18/2017 Telephone Internal Medicine at [place] [id number] Vannesa Cheng Appointment Social History Tobacco Use Types Packs/Day [...] Miscellaneous Notes * Telephone Encounter - Vannesa Cheng - 07/18/2017 8:24 AM EST Message: Patient calling for appointment today. Nothing available at [place]. Patient was scheduled at[facility] with Pao Burris. This is in regards to patient's previous appointment on 07/09 Caller and relationship (if other than patient-full name): self Best time to call back: any Ok to leave a message: [y] Ok to send my- message: [y Offered Appointment: yadi PAUL/Nurse contacted via: Message: x Call: Pager: documented in this encounter Plan of Treatment Upcoming Encounters Date Type Department Care Team (Late st Contact Info) Description 12/15/2024 11:30 AM EDT Office [place] [address] Charline Ziegler MD [facility] [place] [address] documented as of this encounter Visit Diagnoses Not on filedocumented in this encounter Care Teams Commercial Counsel Relationship Specialty Start Date End Date Reji Adams MD [facility] [place] [address] PCP - General General Internal Medicine 07/13/15 documented as of this encounter
--- OUTSIDE RECORDS SUMMARY | 2024-07-09 11:14 | XMS_ITS | Encounter Summary ---
Author Organization [facility] [place] [address] Care Team Providers Care Lay Out Carpenter Name Role Phone Reji Adams MD Primary Care Provider [phone] Encounter Details Date Type Department Care Team (Latest Contact Info) Description 02/13/2018 3:55 PM EDT Laboratory Appointment Lab [address] [place] [phone] Low TSH level Social History Tobacco Use Types Packs/Day Years [...] EDT Office [place] [phone] Charline Ziegler MD [facility] [place] [address] documented as of this encounter Procedures Procedure Name Priority Date/Time Associated Diagnosis Comments TSH Routine 02/13/2018 4:00 PM EDT Low TSH level T4, FREE Routine 02/13/2018 4:00 PM EDT Low TSH level documented in this encounter Results * (ABNORMAL) T4, free (02/13/2018 4:00 PM EDT) Free T4 0.89(L) 0.93 - 1.70 ng/dL [facility] Blood specimen (specimen) 02/13/2018 4:00 PM EDT 02/13/2018 4:11 PM EDT Narrative Resulting Agency Comment Spec In Lab Mirlande New MD CHEMISTRY ORDERABLES Performing Organization Address City/[facility]/ZIP Co de Phone Number [facility] [place] [address] * TSH (02/13/2018 4:00 PM EDT) Thyroid Stimulating Hormone 2.77 0.27 - 4.20 mlU/ML [facility] Blood specimen (specimen) 02/13/2018 4:00 PM EDT 02/13/2018 4:11 PM EDT Narrative Resulting Agency Comment Spec In Lab Mirlande New MD CHEMISTRY ORDERABLES Performing Organization Address City/[facility]/ZIP Co de Phone Number [facility] [place] [address] documented in this encounter Visit Diagnoses Diagnosis Low TSH level Nonspecific abnormal results of thyroid function study documented in this encounter Care Teams Lay Out Carpenter Relationship Specialty Start Date End Date Reji Adams MD [facility] [place] [address] PCP - General General Internal Medicine 07/13/15 documented as of this encounter
--- OUTSIDE RECORDS SUMMARY | 2024-07-09 11:14 | XMS_ITS | Encounter Summary ---
Author Organization [facility] Address [facility] [place] [address] Care Team Providers Care Operations Staff Specialist Security Name Role Phone Reji Adams MD Primary Care Provider [phone] Encounter Details Date Type Department Care Team (Late st Contact Info) Description 10/23/2017 3:00 PM EDT [place] [address] Tobias Mcginnis MD [facility] [place] [address] Elevated PSA Social History Tobacco Use Types [...] Sign Reading Time Taken Comments Blood Pressure 101/63 10/23/2017 2:53 PM EDT Pulse 73 10/23/2017 2:53 PM EDT Temperature - - Respiratory Rate - - Oxygen Saturation - - Inhaled Oxygen Concentration - - Weight - - Height - - Body Mass Index - - documented in this encounter Progress Notes * Tobias Mcginnis MD - 10/23/2017 3:00 PM EDT Urologic Outpatient Consult Note HPI: Ken [...] - TRUS biopsy negative 09/2017 - 6.62 He presents today in follow-up. No changes since last visit. PMHx: Past Medical History: Diagnosis Date ??? BPH (benign prostatic hyperplasia) ??? Neck pain 08/24/2012 ??? OA (osteoarthritis) of knee right PSHx: Past Surgical History: Procedure Laterality Date ??? CREATED BY INTERFACE Past surg hx. Procedure Date: 09/19/2010 ??? PRO COLONOSCOPY, DIAGNOSTIC 09/07/2013 COLONOSCOPY, DIAGNOSTIC performed by Ximena Gu MD at [facility] ENDOSCOPY ??? PRO LIGATE/STRIP LONG SAPH VEIN BELW SEP-FEM JUNC 06/02/2012 LIGATION\DIV\STRIP GREATER SAPHENOUS VEIN performed by BEATRICE RODRÍGUEZ at [facility] MAIN OR ??? PRO PHLEB VEINS - EXTREM - TO 20 06/02/2012 STAB PHLEBECTOMY KARLI VEINS, EXTREMITY 10-20 INCISIONS-SANTI performed by BEATRICE RODRÍGUEZ at [facility] MAIN OR ??? PRO UPPER GI ENDOSCOPY, BIOPSY N/A 09/02/2017 EGD WITH BIOPSY (WRVU 2.49) performed by Rahul Escobar MD at [facility] ENDOSCOPY SOCHx: Social History Social History ??? [...] History Narrative FamHx: Negative for malignancies ROS: Constitutional: Denies fever, chills, weight loss/gain Eyes: Denies acute vision change ENT: Congestion Pulmonary: Denies asthma, cough, recent pneumonia, SOB Cardiovascular: Denies chest pain, arrhythmia, [place] GI:Denies GI bleed, GERD, constipation or diarrhea : As per HPI Endocrine: Denies diabetes, thyroid disease Integumentary: Denies skin cancer, rash Heme/lymph: Denies easy bleeding/bruising Neurologic: Denies CVA/TIA Psychiatric: Denies depression or anxiety Musculoskeletal: Denies back pain, weakness Allergy/immunology: Denies immune disorder Anesthesia complications: Denies PE: Gen: well appearing male, NAD Skin: warm and dry, no lesions Musculoskeletal: symmetric without gait abnormalities Neurologic: no obvious abnormalities FREDI deferred PVR (Bladder Scan): 100cc (approx 40 min after last void) Urinalysis: Negative Imaging:NA NCI prostate cancer risk calculator: 8 % risk of high grade prostate cancer 20 % risk of low grade prostate cancer 72 % chance of having a negative prostate biopsy Impression: #1 Elevated PSA with normal FREDI s/p negative biopsy 03/2017 #2 Irritative lower urinary tract symptoms, stable, not terribly bothersome Plan/Recommendations: # PSA in 6 months # Lifestyle modifications for voiding complaints (decrease volume, avoid bladder irritants, timed voiding etc all reviewed with the patient and educational materials given) # Testosterone checked at patient request. I let him know that I do not do endocrinology but that Icould refer him to the appropriate technology applications consultant or Dr. Adams could as well. I will forward results to him. 20 minutes spent in counseling an coordination and care documented in this encounter Plan of Treatment Upcoming Encounters Date Type Department Care Team (Late st Contact Info) Description 12/15/2024 11:30 AM EDT Office [place] [address] Charline Ziegler MD [facility] [place] [address] documented as of this encounter Results * (ABNORMAL) PSA (04/27/2018 10:25 AM EDT) Prostate Specific Antigen (Ultrasensitiv e) 6.59(H) 0.00 - 4.00 ng/mL [facility] Blood specimen (specimen) 04/27/2018 10:25 AM EDT 04/27/2018 10:37 AM EDT Narrative Resulting Agency Comment Spec In Lab Tobias Mcginnis MD CHEMISTRY ORDERABL ES [facility] [place] [address] documented in this encounter Visit Diagnoses Diagnosis Elevated PSA Elevated prostate specific antigen (PSA) documented in this encounter Care Teams Operations Staff Specialist Security Relationship Specialty Start Date End Date Reji Adams MD [facility] [place] [address] PCP - General General Internal Medicine 07/13/15 documented as of this encounter
--- OUTSIDE RECORDS SUMMARY | 2024-07-09 11:14 | XMS_ITS | Encounter Summary ---
Author Organization [facility] Address [facility] [place] [address] Care Team Providers Care Chemical Equipment Sales Engineer Name Role Phone Reji Adams MD Primary Care Provider [phone] Reason for Visit * Consultation (Routine) - Closed Specialty Diagnoses / Procedures Referred By Duglas arizmendi Referred To Contact Endocrinology Diagnoses Low TSH level Mirlande New MD [facility] [place] [address] [facility] [address] [place] [address] Referral ID Status Reason Start Date Expiration Date V isits Requested Visits Authorized [id number] Closed Consult, Test & Treat 01/01/2018 01/01/2019 1 1 Encounter Details Date Type Department Care Team (Late st Contact Info) Description 04/30/2018 3:20 PM EDT Office [place] [address] Frantz Olivas MD [facility] [place] [address] Abnormal results of thyroid function studies Social History Tobacco Use Types Packs/Day Years [...] Sign Reading Time Taken Comments Blood Pressure 123/69 04/30/2018 3:11 PM EDT Pulse 73 04/30/2018 3:11 PM EDT Temperature - - Respiratory Rate - - Oxygen Saturation - - Inhaled Oxygen Concentration - - Weight 88.5 kg (195 lb) 04/30/2018 3:11 PM EDT Height 179.1 cm (5' 10.5) 04/30/2018 3:11 PM ED T Body Mass Index 27.58 04/30/2018 3:11 PM EDT documented in this encounter Progress Notes * Frantz Olivas MD - 04/30/2018 3:20 PM EDT Subjective: Patient ID: Ken Mckeon is a 72 y.o. male who comes in to see me for the first time in illness to discuss some abnormal thyroid function test. Gregg had been evaluated for some unexplained weight loss and a little bit of fatigue several months ago. It was noted that he had a suppressed TSH level. He is not on any levothyroxine but I do believe he has some family history of Luana's thyroiditis. He has had a full evaluation for other issues that have been seemingly negative. His main reason for coming in today is to discuss his thyroid issues or other possible endocrine abnormalities that could cause him to have lost weight. Of note is the fact that his initial TSH that was suppressed was in the end of November 2017 at that time he also had a undetectable TSI level and his free T4 and total T3 levels were completely normal. Since then he has had a TSH is drawn in January that have been in the mid 2 range He said he still does not think he regained weight and may still be losing weight.. HPI Review of Systems Objective: Physical Exam Constitutional: He is oriented to person, place, and time. He appears well- developed and well-nourished. Neck: No thyromegaly present. Neurological: He is alert and oriented to person, place, and time. Psychiatric: He has a normal mood and affect. His behavior is normal. Thought content normal. BP 123/69 Pulse 73 Ht 179.1 cm (5' 10.5) Wt 88.5 kg (195 lb) BMI 27.58 kg/m2 Skin: No evidence of any hyperpigmentation in his skin Assessment and Plan: Recent Results (from the past 72 hour(s)) Cortisol Result Value Ref Range Cortisol 12.9 mcg/dL T4, free Result Value Ref Range Free T4 1.08 0.93 - 1.70 ng/dL T3 Total Result Value Ref Range T3, Total 106 75 - 170 ng/dL TSH Result Value Ref Range TSH 3.05 0.27 - 4.20 mlU/ML The above blood tests are not available when I had seen Gregg. I told him that it is quite possiblehe had silent thyroiditis that could have accounted for his suppressed TSH which is now resolved. It is even possible that he still may go through a hypothyroid phase. We also talked about checking amorning cortisol level to rule out the unlikely possibility that he has adrenal insufficiency. After Gregg left I did get the results of the above test. His thyroid function tests are completelynormal with his TSH being in the upper half of the normal range. I am still waiting for his anti-TPO antibody titers. In addition, his morning cortisol level is normal that seems to rule out adrenal insufficiency as acause of his weight loss. At this point I will write Gregg to say that I do not think he has any active thyroid disease but still may have had an episode of silent thyroiditis that caused it. Of hyperthyroidism back in the spring. I will also reassure him that his adrenal function is normal. My recommendations, be to follow the situation. I will probably recommend that he has a repeat thyroid test done in the late fall. Greater than 25 of the 30-minute appointment was spent [id number] discussing the issues above. documented in this encounter Plan of Treatment Upcoming Encounters Date Type Department Care Team (Late st Contact Info) Description 12/15/2024 11:30 AM EDT Office [place] [address] Charline Ziegler MD [facility] [place] [address] Scheduled Referrals Name Type Priority Associated Diagnoses Order Schedule Referral to Endocrinology Outpatient Referral Routine Low TSH level Ordered: 01/01/2018 documented as of this encounter Visit Diagnoses Diagnosis Abnormal results of thyroid function studies Nonspecific abnormal results of thyroid function study documented in this encounter Care Teams Chemical Equipment Sales Engineer Relationship Specialty Start Date End Date Reji Adams MD [facility] [place] [address] PCP - General General Internal Medicine 07/13/15 documented as of this encounter
--- OUTSIDE RECORDS SUMMARY | 2024-07-09 11:14 | XMS_ITS | Encounter Summary ---
Author Organization [facility] Address [facility] [place] [address] Care Team Providers Care Child Support Specialist Name Role Phone Reji Adams MD Primary Care Provider [phone] Reason for Visit * Reason Comments Constipation miralax did not help at all, over 5 weeks without having a normal bowel movement, does not feel good at all Encounter Details Date Type Department Care Team (Late st Contact Info) Description 07/09/2017 3:30 PM EST Office [place] [address] Marielena Vo MD [facility] [place] [address] Chronic constipation; Bloating; Epigastric pain Social History Tobacco Use Types Packs/Day [...] Sign Reading Time Taken Comments Blood Pressure 112/69 07/09/2017 3:36 PM EST Pulse 66 07/09/2017 3:36 PM EST Temperature 36.6 ??C (97.9 ??F) 07/09/2017 3 :36 PM EST Respiratory Rate - - Oxygen Saturation 100% 07/09/2017 3:3 6 PM EST Inhaled Oxygen Concentration - - Weight 95.4 kg (210 lb 6.4 oz) 07/09/2017 3:36 PM EST with shoes on Height 179.1 cm (5' 10.51) 07/09/2017 3:36 PM EST reported Body Mass Index 29.75 07/09/2017 3:36 PM EST documented in this encounter Patient Instructions * Patient Instructions* Marielena Vo - 07/09/2017 3:30 PM EST - Continue to drink lots of water - Try a dose of MiraLax once in the morning and once at night [] Take this daily until your bowel movements become regular - Please start omeprazole (Prilosec) or esomeprazole (Nexium) 30 minutes before a meal - We will test your stool for H pylori - Stress reduction techniques documented in this encounter Progress Notes * Marielena Vo - 07/09/2017 3:30 PM EST ESTABLISHED PATIENT VISIT I. HISTORY a. Reason(s) for Visit: Ken Mckeon 71 y.o. male who presents today due to complaint(s) of: Chief Complaint Patient presents with ??? Constipation miralax did not help at all, over 5 weeks without having a normal bowel movement, does not feel good at all b. History of Present Illness: Ken Mckeon is a 71-year-old gentleman with a history of anxiety and depression in today for changes in bowel habits. This started about 6 weeks ago. He went from having daily BMs to BMs every 2-3days (sometimes longer) that are smaller in volume and caliber. He then developed some abdominal jennifer n/ache/nausea, which seems to be associated with hunger though eating can make this worse. There isalso sometimes a burning sensation which is lower in the the gut than heartburn but pressure in the lower sub-sternal area. He has associated bloating/fullness when he has not had a bowel movement.He has been constipated in the past but feels this is very different because he has no urge to defecate or any rectal pressure. He has regularly used laxative and stool softeners to induce a bowel movement and doesn't feel he can go without them. Sometimes these cause uncomfortable cramping (especially Senna Tea, but this wasthe most productive product). He had no luck with MiraLax but has not done more than one capful at night. He feels there is some psychological component as well because food is going in and he is worried about how little output there is. He also has many increased stressors in his home life, particularlywith is partner. He wants to make sure he doesn't have H. Pylori (his partner has in the past), another infection, ulcer, or neurological problem. He has no regular NSAID use. He is on a daily aspirin. He has never tried medications for acid reflux. Of note, he stopped his statin and CoQ10 because he started these around the time his symptoms started; no changes off of them. He was also seen in the ED twice and had two abdominal x-rays and a CT (moderate stool burden, no acute process). GI evaluated him too - recommended increased MiraLax, no aggressive laxatives, low-FODMAP and low-fiber diet, squatty potty/foot stool, glycerin suppositories, possible PPI and H pylori testing. Colonoscopy was done in 2013 and unremarkable except for internal hemorrhoids. He has never had an EGD. juan QUIGLEY (positives in bold): Constitutional - fevers, chills, body aches (chronic), weight loss Respiratory - SOB when abdomen bloated HEENT - diffculty swallowing, hearing, nasal congestion or postnasal drip Gastrointestinal - abdominal pain, nausea, vomiting, GERD (rare), constipation, diarrhea (as a result of laxatives), blood in stool, dark tarry stools, tenesmus, belching Neurological - numbness, tingling, loss of sensation, weakness or function of limbs, headaches d. [facility] Patient Active Problem List Diagnosis ??? Chronic [...] week Comment: rarely II. PHYSICAL EXAM: BP 112/69 (BP Location (NBP): Left arm, Patient Position: Sitting, BP Cuff Sizes: Large Adult (32-43 cm)) Pulse 66 Temp 36.6 ??C (97.9 ??F) (Oral) Ht 179.1 cm (5' 10.51) Comment: reported Wt95.4 kg (210 lb 6.4 oz) Comment: with shoes on SpO2 100% BMI 29.75 kg/m2 Wt Readings from Last 3 Encounters: 07/09/17 95.4 kg (210 lb 6.4 oz) 06/26/17 93.4 kg (206 lb) 06/25/17 94.6 kg (208 lb 9.6 oz) General: alert, in no acute distress, appears comfortable HEENNT: atraumatic, normocephalic, sclera non-icteric, conjunctiva pink, canals clear, TMs with normal light reflex, no rhinorrhea, neck supple without LAD, oropharynx clear without exudate, moist mucous membranes Cardiovascular: RRR, normal S1/S2, no murmurs/rubs/gallps, PT pulses 2+ and symmetric Lungs: chest symmetric, normal effort, CTABL Abdomen: +BS, soft, non-tender, non-distended, no tympany Extremities: no AIDEE MSK: no joint swelling Skin: warm, intact, no bruises, no suspicious lesions Psychologic: flat affect but very concerned throughout the encounter III. ASSESSMENT/PLAN:Ken Mckeon 71 y.o. male with anxiety and depression presenting with now chronic [...] - Follow-up if symptoms do not improve * Mirlande New MD - 07/09/2017 3:30 PM EST I have seen the patient and reviewed the resident's above history and I agree with the details as written. The assessment and plan were formulated in discussion with me and I agree with them as documented. Pertinent History: Pt of Dr. Nguyen. PMH is notable for anxiety/depression, LUTS, cervical DJD. Now with 6 weeks of irregular bm. Stools much less frequent, thinner in caliber. Previously took stoolsofteners, smooth move tea, metamucil. Colonoscopy 2013 + internal and external hemorrhoids. CT/plane film abdomen all unremarkable except for large amount of stool in colon. Now also with upper GI symptoms. + stressors at home. Has seen GI - recs in Dr. Vo's note. ROS + body aches, sob, n/v, rare GERD, + diarrhea with laxatives. Pertinent Exam: 112/69, weight 210. Major issues addressed: chronic constipation and bloating, epigastric pain. rec bulk laxative such as miralax (hadn't wanted to take), start PPI, check hpylori at pt's request. documented in this encounter Plan of Treatment Upcoming Encounters Date Type Department Care Team (Late Contact Info) Description 12/15/2024 11:30 AM EDT Office [place] [address] Charline Ziegler MD [facility] [place] [address] documented as of this encounter Results * Helicobacter pylori Antigen Stool (07/18/2017 9:02 AM EST) H pylori Ag Negative Negative [facility] Comment:Test performed by neel mccloud. H pylori Ag Comment See Comment [facility] Comment: Antimicrobials, proton pump inhibitors and bismuth preparations are known to suppress H pylori, and ingestion of these prior to H. pylori testing may cause false negative results. Stool specimen (specimen) 07/18/2017 9:02 AM EST 07/18/2017 12:29 PM EST Narrative Resulting Agency Comment Spec In Lab Mirlande New MD MICROBIOLOGY - GENER AL ORDERABLES [facility] [place] [address] documented in this encounter Visit Diagnoses Diagnosis Chronic constipation Unspecified constipation Bloating Flatulence, eructation, and gas pain Epigastric pain Abdominal pain, epigastric documented in this encounter Care Teams Child Support Specialist Relationship Specialty Start Date End Date Reji Adams MD [facility] [place] [address] PCP - General General Internal Medicine 07/13/15 documented as of this encounter
--- OUTSIDE RECORDS SUMMARY | 2024-07-09 11:14 | XMS_ITS | Encounter Summary ---
Author Organization [facility] [place] [address] Care Team Providers Care Ranger Aide Name Role Phone Reji Adams MD Primary Care Provider [phone] Encounter Details Date Type Department Care Team (Latest Contact Info) Description 12/30/2017 12:45 PM EDT Laboratory Appointment Lab [address] [place] [phone] Low TSH level Social History Tobacco Use [...] 11:30 AM EDT Office [place] [phone] Charline Ziegler MD [facility] [place] [address] documented as of this encounter Procedures Procedure Name Priority Date/Time Associated Diagnosis Comments THYROID STIMULATING IMMUNOGLOBULINS Routine 12/30/2017 1:06 PM EDT Low TSH level documented in this encounter Results * Thyroid Stimulating Immunoglobulins (12/30/2017 1:06 PM EDT) Thyroid Stimulating Immunoglobulin <0.10 <=0.55 IU/L [facility] Blood specimen (specimen) 12/30/2017 1:06 PM EDT 12/31/2017 7:30 AM EDT Narrative Resulting Agency Comment Spec In Lab Mirlande New MD IMMUNOLOGY ORDERABLE S [facility] [place] [place] [address] documented in this encounter Visit Diagnoses Diagnosis Low TSH level Nonspecific abnormal results of thyroid function study documented in this encounter Care Teams Ranger Aide Relationship Specialty Start Date End Date Reji Adams MD [facility] [place] [address] PCP - General General Internal Medicine 07/13/15 documented as of this encounter
--- OUTSIDE RECORDS SUMMARY | 2024-07-09 11:14 | XMS_ITS | Encounter Summary ---
Author Organization [facility] [place] [address] Care Team Providers Care Lighting Engineer Name Role Phone Reji Adams MD Primary Care Provider [phone] Encounter Details Date Type Department Care Team (Latest Contact Info) Description 03/13/2018 11:45 AM EDT Laboratory Appointment Lab [address] [place] [phone] Acute thyroiditis ; Abnormal thyroid blood test Social History Tobacco Use Types Packs/Day Years [...] 11:30 AM EDT Office [place] [phone] Charline Ziegler MD [facility] [place] [address] documented as of this encounter Procedures Procedure Name Priority Date/Time Associated Diagnosis Comments TSH Routine 03/13/2018 11:49 AM EDT Acute thyroiditis Abnormal thyroid blood test T4, FREE Routine 03/13/2018 11:49 AM EDT Acute thyroiditis Abnormal thyroid blood test documented in this encounter Results * T4, free (03/13/2018 11:49 AM EDT) Free T4 1.16 0.93 - 1.70 ng/dL [facility] Blood specimen (specimen) 03/13/2018 11:49 AM EDT 03/13/2018 11:52 AM EDT Narrative Resulting Agency Comment Spec In Lab Reji Adams MD CHEMISTRY ORDERABLES Performing Organization Address City/[facility]/ZIP Co de Phone Number [facility] [place] [address] * TSH (03/13/2018 11:49 AM EDT) Thyroid Stimulating Hormone 2.47 0.27 - 4.20 mlU/ML [facility] Blood specimen (specimen) 03/13/2018 11:49 AM EDT 03/13/2018 11:52 AM EDT Narrative Resulting Agency Comment Spec In Lab Reji Adams MD CHEMISTRY ORDERABLES Performing Organization Address City/[facility]/ZIP Co de Phone Number [facility] [place] [address] documented in this encounter Visit Diagnoses Diagnosis Acute thyroiditis Acute thyroiditis Abnormal thyroid blood test Nonspecific abnormal results of thyroid function study documented in this encounter Care Teams Lighting Engineer Relationship Specialty Start Date End Date Reji Adams MD [facility] [place] [address] PCP - General General Internal Medicine 07/13/15 documented as of this encounter
--- OUTSIDE RECORDS SUMMARY | 2024-07-09 11:14 | XMS_ITS | Encounter Summary ---
Author Organization [facility] Address [facility] [place] [address] Care Team Providers Care Bus Driver Name Role Phone Reji Adams MD Primary Care Provider [phone] Reason for Referral * Consultation (Routine) - Canceled Specialty Diagnoses / Procedures Referred By Duglas arizmendi Referred To Contact Plastic Surgery Diagnoses Anxiety Trigger ring finger of left hand Reji Adams MD [facility] [place] [address] [facility] Plastic Surg [address] [place] [id number] Referral ID Status Reason Start Date Expiration Date Visits Requested Visits Authorized [id number] Canceled Specialty Service Requested 03/17/2018 03/17/2019 1 1 Reason for Visit * Reason Comments Trigger Finger left hand, ring fing er, would like to discuss a referral Encounter Details Date Type Department Care Team (Late st Contact Info) Description 03/17/2018 3:20 PM EDT Office Visit Internal Medicine at [address] [address] Reji Adams MD [facility] [place] [address] Anxiety; Trigger ring finger of left hand; Thyroiditis Social History Tobacco Use Types Packs/Day [...] Sign Reading Time Taken Comments Blood Pressure 99/61 03/17/2018 3:14 PM EDT Pulse 78 03/17/2018 3:14 PM EDT Temperature - - Respiratory Rate - - Oxygen Saturation 99% 03/17/2018 3:1 4 PM EDT Inhaled Oxygen Concentration - - Weight 90.5 kg (199 lb 9.6 oz) 03/17/2018 3:14 PM EDT with shoes on Height 178.1 cm (5' 10.12) 03/17/2018 3:14 PM EDT reported Body Mass Index 28.54 03/17/2018 3:14 PM EDT documented in this encounter Progress Notes * Reji Adams MD - 03/17/2018 3:20 PM EDT ESTABLISHED PATIENT VISIT I. HISTORY a. Reason(s) for Visit: Ken Mckeon 72 y.o. male who presents today due to complaint(s) of: Chief Complaint Patient presents with ??? Trigger Finger left hand, ring finger, would like to discuss a referral b. History of Present Illness:[] Pt states that feels like getting a trigger finger L hand. At night will need to pull finger to getit to open. Is somewhat uncomfortable. Feeling more anxious. A lot of stress. Does not feel depressed but does feel overwhelmed. c. Review of Systems: Constitutional - no [...] PMH Patient Active Problem List Diagnosis ??? Chronic [...] week Comment: rarely II. PHYSICAL EXAM: BP 99/61 (BP Location (NBP): Left arm, Patient Position: Sitting, BP Cuff Sizes: Large Adult (32-43cm)) Pulse 78 Ht 178.1 cm (5' 10.12) Comment: reported Wt 90.5 kg (199 lb 9.6 oz) Comment: with shoes on SpO2 99% BMI 28.54 kg/m2 General - No acute distress, conversing without difficulty. ENT - oropharynx without lesions. L hand - triggering with nodule L ring finger. Extremities - No clubbing, cyanosis or edema. III. ASSESSMENT/PLAN:Ken Mckeon 72 y.o. male presenting for trigger finger and anxiety. Ken was seen today for trigger finger. Diagnoses and all orders for this visit: Anxiety - clonazePAM (KLONOPIN) 0.5 mg Tablet; Take 0.5 tablets by mouth 2 times daily as needed for Anxiety. Trigger ring finger of left hand - Referral to Plastic Surgery Thyroiditis - TSH; Future Meds reconciled documented in this encounter Plan of Treatment Upcoming Encounters Date Type Department Care Team (Late st Contact Info) Description 12/15/2024 11:30 AM EDT Office [place] [address] Charline Ziegler MD [facility] [place] [address] Scheduled Referrals Name Type Priority Associated Diagnoses Orde r Schedule Referral to Plastic Surgery Outpatient Referral Routine Anxiety Trigger ring finger of left hand Ordered: 03/17/2018 documented as of this encounter Results * TSH (04/27/2018 10:25 AM EDT) Thyroid Stimulating Hormone 2.21 0.27 - 4.20 mlU/ML [facility] Blood specimen (specimen) 04/27/2018 10:25 AM EDT 04/27/2018 10:37 AM EDT Narrative Resulting Agency Comment Spec In Lab Reji Adams MD CHEMISTRY ORDERABLES [facility] [place] [address] documented in this encounter Visit Diagnoses Diagnosis Anxiety Anxiety state, unspecified Trigger ring finger of left hand Trigger finger (acquired) Thyroiditis Thyroiditis, unspecified documented in this encounter Care Teams Bus Driver Relationship Specialty Start Date End Date Reji Adams MD [facility] [place] [address] PCP - General General Internal Medicine 07/13/15 documented as of this encounter
--- OUTSIDE RECORDS SUMMARY | 2024-07-09 11:14 | XMS_ITS | Encounter Summary ---
Author Organization [facility] [place] [address] Care Team Providers Care Information And Data Architect Analyst Name Role Phone Reji Adams MD Primary Care Provider [phone] Encounter Details Date Type Department Care Team (Latest Contact Info) Description 04/27/2018 10:20 AM EDT Laboratory Appointment Lab [address] [place] [phone] Thyroiditis; Hyperlipidemia, unspecified hyperlipidemia type; Elevated PSA Social History Tobacco Use Types [...] [place] [address] Charline Ziegler MD [facility] [place] [address] documented as of this encounter Procedures Procedure Name Priority Date/Time Associated Diagnosis Comments TSH Routine 04/27/2018 10:25 AM EDT Thyroiditis PSA (ULTRASENSITIVE) STAT 04/27/2018 10:25 AM EDT Elevated PSA LIPID PANEL (REFLEX DIRECT LDL) Routine 04/27/2018 10:25 AM EDT Hyperlipidemia, unspecified hyperlipidemia type documented in this encounter Results * (ABNORMAL) PSA (04/27/2018 10:25 AM EDT) Prostate Specific Antigen (Ultrasensitiv e) 6.59(H) 0.00 - 4.00 ng/mL [facility] Blood specimen (specimen) 04/27/2018 10:25 AM EDT 04/27/2018 10:37 AM EDT Narrative Resulting Agency Comment Spec In Lab Tobias Mcginnis MD CHEMISTRY ORDERABL ES Performing Organization Address City/State/[facility] Co de Phone Number [facility] [place] [place] [address] * Lipid Panel (04/27/2018 10:25 AM EDT) Cholesterol, Total 155 mg/dL [facility] Comment: Lower Risk: <200 mg/dL Average Risk: 200-239 mg/dL Higher Risk: >us=476 mg/dL Triglyceride 76 mg/dL [facility] Comment: Average Risk/Lower Risk: <150 mg/dL Borderline High Risk: 150-199 mg/dL High Risk: 200-499 mg/dL Very High Risk: >in=417 mg/dL HDL Cholesterol 61 mg/dL [facility] Comment: Males: ?? Higher Risk: <40 mg/dL Females: ?? HIgher Risk: <50 mg/dL LDL Cholesterol 79 mg/dL [facility] Comment: Lowest Risk: <100 mg/dL Lower Risk: 100-129 mg/dL Borderline High Risk: 130-159 mg/dL High Risk: 160-189 mg/dL Very High Risk: >he=408 mg/dL Cholesterol/HDL Ratio 2.[address] [facility] Lipid Interpretation See Note [facility] Comment: Lipid management should be guided by a patient? s ASCVD risk, goals and preferences. ACC/AHA Guidelines recommend high intensity statin if clinical ASCVD or LDL greater than or equal to 190 mg/dL. http://Angle.com/LKH-PSE-Mtcelvtxf Adults aged 40-75 with LDL 70-189 mg/dL should have their 10 year ASCVD risk estimated with the ACC/AHA ASCVD risk jewelry estimator http://tools.acc.org/UJORJ-Cygp-Hljzhgrqr/ Statin should be discussed if risk greater [...] of ASCVD risk reduction. Blood specimen (specimen) 04/27/2018 10:25 AM EDT 04/27/2018 10:37 AM EDT Narrative Resulting Agency Comment Spec In Lab Reji Adams MD CHEMISTRY ORDERABLES Performing Organization Address [facility] Co de Phone Number [facility] [place] [place] [address] * TSH (04/27/2018 10:25 AM EDT) Thyroid Stimulating Hormone 2.21 0.27 - 4.20 mlU/ML [facility] Blood specimen (specimen) 04/27/2018 10:25 AM EDT 04/27/2018 10:37 AM EDT Narrative Resulting Agency Comment Spec In Lab Reji Adams MD CHEMISTRY ORDERABLES Performing Organization Address [facility] Co de Phone Number [facility] [place] [address] documented in this encounter Visit Diagnoses Diagnosis Thyroiditis Thyroiditis, unspecified Hyperlipidemia, unspecified hyperlipidemia type Elevated PSA Elevated prostate specific antigen (PSA) documented in this encounter Care Teams Information And Data Architect Analyst Relationship Specialty Start Date End Date Reji Adams MD [facility] [place] [address] PCP - General General Internal Medicine 07/13/15 documented as of this encounter
--- OUTSIDE RECORDS SUMMARY | 2024-07-09 11:14 | XMS_ITS | Encounter Summary ---
Author Organization [facility] Address [facility] [place] [address] Care Team Providers Care Application Integration Architect Name Role Phone Reji Adams MD Primary Care Provider [phone] Reason for Referral * Consultation (Routine) - Closed Specialty Diagnoses / Procedures Referred By Duglas arizmendi Referred To Contact Gastroenterology Diagnoses RUQ pain Epigastric pain Rose Ghotra PA [facility] [place] [address] [facility] [address] [place] [address] Referral ID Status Reason Start Date Expiration Date V isits Requested Visits Authorized [id number] Closed Test Only 08/22/2017 08/22/2018 1 1 Reason for Visit * Reason Comments Abdominal Pain Stomach pain for few days. Pain goes to the right side of the back. Encounter Details Date Type Department Care Team (Late st Contact Info) Description 08/22/2017 11:00 AM EST Office [place] [address] Rose Ghotra PA [facility] [place] [address] RUQ pain; Epigastric pain Social History Tobacco Use Types [...] Sign Reading Time Taken Comments Blood Pressure 125/68 08/22/2017 11:12 AM EST Pulse 77 08/22/2017 11:12 AM EST Temperature 36.6 ??C (97.9 ??F) 08/22/2017 11:[address] Respiratory Rate 16 08/22/2017 11:12 AM EST Oxygen Saturation 99% 08/22/2017 11:12 AM EST Inhaled Oxygen Concentration - - Weight 93.1 kg (205 lb 3.2 oz) 08/22/2017 11:12 AM EST Height 178.1 cm (5' 10.12) 08/22/2017 11:12 AM EST Body Mass Index 29.34 08/22/2017 11:12 AM EST documented in this encounter Progress Notes * Rose Ghotra, MATT - 08/22/2017 11:00 AM EST Images from the original note were not included. Subjective: Patient ID: Ken Cole is a 71 y.o. male. ?? Pain in upper abdomen for the past 2-3 weeks, worse in the past week, going into the right side of back ?? Denies reflux symptoms ?? Pain is more in epigastric area, a little right of center, worse with hunger and improved with food ?? Has been eating more vegetables, avoiding white bread, fatty foods ?? Has stopped Benefiber since he was told he was taking too much ?? Pain rated 4-7/10 ?? Pain is associated with nausea, but no vomiting ?? Gets upset stomach with stool softeners ?? Has noticed a gradual steady decline in weight at home (fluctuations in recent visits may be dueto different scale or weighed with/without shoes) ?? Rectal discomfort in right side ?? Does not take frequent NSAIDs; does not smoke but has history of occasional chewing tobacco use;drinks alcohol rarely (can't remember last drink) ?? No blood in stool or black stools ?? Has had 3-4 BM this past week, every 2-3 days, small amounts with straining ?? Has tried Miralax, Dulcolax, magnesium citrate ?? Had a little relief of constipation for about 1 week, then worsened again ?? Has used a glycerin suppository every other day for a week, which helped a little ?? Has done enemas at home, which helped somewhat, and one in the ED, but had to hurry it along because he had to get a CT scan ?? Now not as bothered by constipation, having BM about every other day Review of Systems Constitutional: Positive for fatigue and unexpected weight change (gradual over past couple of months, noticed at home). Negative for activity change, appetite change, chills, diaphoresis and fever. HENT: Negative for postnasal drip, sneezing, sore throat and trouble swallowing. Respiratory: Negative for cough, chest tightness, shortness of breath and wheezing. Cardiovascular: Negative for chest pain, palpitations and leg swelling. Gastrointestinal: Positive for abdominal pain (epigastric). Negative for abdominal distention (sensation of bloating), anal bleeding, blood in stool, constipation, diarrhea, nausea, rectal pain and vomiting. Musculoskeletal: Positive for back pain (right lower back). Negative for myalgias. Neurological: Negative for dizziness, syncope, light-headedness and headaches. Hematological: Negative for adenopathy. Objective: Most Recent Vitals: 08/22/17 1112 BP: 125/68 Pulse: 77 Resp: 16 Temp: 36.6 ??C (97.9 ??F) SpO2: 99% PainSc: 4 BP Readings from Last 3 Encounters: 08/22/17 125/68 07/29/17 115/70 07/18/17 122/71 Wt Readings from Last 3 Encounters: 08/22/17 93.1 kg (205 lb 3.2 oz) 07/29/17 94.3 kg (208 lb) 07/18/17 94.4 kg (208 lb 3.2 oz) PHQ-9 QUESTIONNAIRE SCORE ONLY (AMB) 11/22/2016 PHQ - 9 Score (Clinic) 6 (Mild Depression) Some recent data might be hidden Physical Exam Constitutional: He is oriented to person, place, and time. He appears well- developed and well-nourished. No distress. Cardiovascular: Normal rate, regular rhythm and normal heart sounds. Pulmonary/Chest: Effort normal and breath sounds normal. No respiratory distress. He has no wheezes. Abdominal: Soft. Bowel sounds are normal. He exhibits no distension and no mass. There is tenderness (moderate epigastric and RUQ). There is no rebound and no guarding. Musculoskeletal: Normal range of motion. He exhibits no edema, tenderness or deformity. Neurological: He is alert and oriented to person, place, and time. He has normal reflexes. Skin: Skin is warm and dry. He is not diaphoretic. Psychiatric: He has a normal mood and affect. Ref Range & Units 12:21 PM 2mo ago ?? Glucose Fasting 65 - 99 mg/dL 98 ?? Comments: See comments ?? BUN 10 - 20 mg/dL 16 9 (L) ?? Creatinine 0.80 - 1.50 mg/dL 1.00 0.99 ?? Sodium 135 - 145 mmol/L 139 138 ?? Potassium 3.5 - 5.0 mmol/L 4.2 3.9CM ?? Comments: See comments ?? Chloride 98 - 107 mmol/L 101 99 ?? CO2 22 - 31 mmol/L 27 25 ?? Anion Gap 5 - 15 mmol/L 11 14 ?? Calcium 8.5 - 10.5 mg/dL 9.4 9.5 ?? Total Protein 6.1 - 8.0 gm/dL 6.9 ?? Albumin 3.2 - 5.2 gm/dL 4.4 ?? AST 0 - 39 unit/L 17 ?? ALT 0 - 55 unit/L 13 ?? Alk Phos 40 - 120 unit/L 51 ?? Total Bilirubin 0.2 - 1.3 mg/dL 0.6 ?? Estimated GFR >=60 >60 >60CM ?? Comments: See comments ?? Resulting Agency [facility] ?? Ref Range & Units 12:21 PM 2mo ago ?? Lipase 0 - 60 unit/L 42 41 ?? Resulting Agency [facility] ?? Ref Range & Units 12:21 PM 2mo ago ?? WBC 4.0 - 9.5 x10(3)/mcL 7.7 7.0 ?? RBC 4.58 - 5.54 x10(6)/mcL 4.95 4.91 ?? Hemoglobin 13.7 - 16.5 gm/dL 15.1 15.2 ?? Hematocrit 40.5 - 48.5 % 44.5 43.4 ?? MCV 82.9 - 93.1 fL 89.9 88.4 ?? MCH 27.5 - 32.1 pg 30.5 31.0 ?? MCHC 32.0 - 35.7 gm/dL 33.9 35.0 ?? Platelets 145 - 357 x10(3)/mcL 198 176 ?? RDWSD 36.0 - 45.0 fL 45.0 42.1 ?? RDWCV 11.4 - 13.8 % 13.7 13.1 ?? MPV 7.6 - 12.9 fL 10.0 9.7 ?? nRBC % Auto % 0.0 0.0 ?? nRBC Abs Auto 0.000 - 0.000 x10(3)/mcL 0.000 0.000 ?? Resulting Agency [facility] ?? Assessment and Plan: 71 year old male with pain in epigastric area and RUQ for past 2-3 weeks, worse in the past week with nausea (no vomiting) and tenderness on exam. He has never had this type of pain before and has been following a low-FODMAP diet and limiting fatty foods. He does not smoke, drink alcohol, or use frequent NSAIDs. He has tried Nexium 40 mg without noticed benefit. He is also experiencing chronic constipation mainly since May and is followed in gastroenterology. He has had some modest benefitwith glycerin suppositories and home enemas. Recent CT scan showed no acute abnormalities. 1. RUQ pain - US Abdomen Limited; Future - Referral to Gastroenterology EGD - CMP w/fasting Glucose; Future - Lipase; Future - CBC (with Diff); Future - CMP w/fasting Glucose - Lipase - CBC (with Diff) - Hemogram - Differential, Automated 2. Epigastric pain - US Abdomen Limited; Future - Referral to Gastroenterology - CMP w/fasting Glucose; Future - Lipase; Future - CBC (with Diff); Future - CMP w/fasting Glucose - Lipase - CBC (with Diff) - Hemogram - Differential, Automated - An after visit summary was given to the patient. - Ken was given necessary information on his condition and instructed to return if symptoms continue or worsen. documented in this encounter Plan of Treatment Upcoming Encounters Date Type Department Care Team (Late st Contact Info) Description 12/15/2024 11:30 AM EDT Office Visit Gastroenterology at [facility] [place] [address] Charline Ziegler MD [facility] [place] [address] Scheduled Referrals Name Type Priority Associated Diagnoses Order Schedule Referral to Gastroenterology Outpatient Referral Routine RUQ pain Epigastric pain Ordered: 08/22/2017 documented as of this encounter Procedures Procedure Name Priority Date/Time Associated Diagnosis Comments CMP W/FASTING GLUCOSE Routine 08/22/2017 12:21 PM EST RUQ pain Epigastric pain HEMOGRAM Routine 08/22/2017 12:21 PM EST RUQ pain Epigastric pain DIFFERENTIAL, AUTOMATED Routine 08/22/2017 12:21 PM EST RUQ pain Epigastric pain CBC (WITH DIFF) Routine 08/22/2017 12:21 PM EST RUQ pain Epigastric pain LIPASE Routine 08/22/2017 12:21 PM EST RUQ pain Epigastric pain documented in this encounter Results * US Abdomen Limited (08/25/2017 1:59 PM EST) Anatomical Region Laterality Modality Abdomen Ultrasound 08/25/2017 1:57 PM EST Impressions 08/25/2017 2:09 PM EST ??Normal gallbladder and biliary tree. Normal liver. Normalright kidney with 1.5 cm simple cyst. ?Bernie Fernando MD Electronically Signed Final Report ?? 08/25/2017 02:08 pm Narrative 08/25/2017 2:09 PM EST Abdominal ? (Signed Final 08/25/2017 02:08 pm) PATIENT INFO: ID #: ? [id number] ?: ??[birth year] (71 yrs) Name: ? KEN COLE ? Visit Date: 08/25/2017 01:57 pm PERFORMED BY: Performed By: ? Alma Leblanc RDMS Attending: ?Bernie Fernando MD Referred By: ?JEY ECHOLS Location: ? [place] SERVICE(S) PROVIDED: ??UABDLIM - Abdominal Limited Survey Single ? [id number] ??Organ or Quadrant - [id number] INDICATIONS: ??Pain in epigastric area and RUQ for past 2-3 ??weeks, worse in the past week with nausea ??and tenderness on exam COMPARISON: Prior CT: 06/18/17 ------ LIVER: ------ Right Lobe Length: ?? 14.8 ?? cm Echogenicity/Echotexture: ?? Normal GALLBLADDER: Cholelithiasis: ?No stones visualized Focal Tenderness: ?Negative sonographic Alfaro's sign BILIARY TRACT: Intrahepatic Ducts: ?? Normal Extrahepatic Ducts: ?? Normal Common Duct Size: ? 1.0 ? mm --------- PANCREAS: --------- Head: ? Normal Tail: ? Poorly visualized due to overlying bowel Body: ? Normal RIGHT KIDNEY: Size (cm) ?L: ??10.8 Cortical Thickness: ?Normal Cortical Echogenicity: ?? Normal Hydronephrosis: ?No sonographic evidence Comment: ?Simple cyst seen, measuring ??1.5 cm. ------ AORTA: ------ Measurements (cm): Proximal ? AP: ?? 2.4 ---- IVC: ---- Normal in caliber where visualized. Procedure Note Bernie Fernando MD - 08/25/2017 Abdominal (Signed Final 08/25/2017 02:08 pm) PATIENT INFO: ID #: [id number] : [birth year] (71 yrs) Name: KEN COLE Visit Date: 08/25/2017 01:57 pm PERFORMED BY: Performed By: Alma Leblanc RDMS Attending: Bernie Fernando MD Referred By: JEY ECHOLS Location: [place] SERVICE(S) PROVIDED: UABDLIM - Abdominal Limited Survey Single 73926 Organ or Quadrant - [id number] INDICATIONS: Pain in epigastric area and RUQ for past 2-3 weeks, worse in the past week with nausea and tenderness on exam COMPARISON: Prior CT: 06/18/17 ------ LIVER: ------ Right Lobe Length: 14.8 cm Echogenicity/Echotexture: Normal GALLBLADDER: Cholelithiasis: No stones visualized Focal Tenderness: Negative sonographic Alfaro's sign BILIARY TRACT: Intrahepatic Ducts: Normal Extrahepatic Ducts: Normal Common Duct Size: 1.0 mm --------- PANCREAS: --------- Head: Normal Tail: Poorly visualized due to overlying bowel Body: Normal RIGHT KIDNEY: Size (cm) L: 10.8 Cortical Thickness: Normal Cortical Echogenicity: Normal Hydronephrosis: No sonographic evidence Comment: Simple cyst seen, measuring 1.5 cm. ------ AORTA: ------ Measurements (cm): Proximal AP: 2.4 ---- IVC: ---- Normal in caliber where visualized. IMPRESSION Normal gallbladder and biliary tree. Normal liver. Normalright kidney with 1.5 cm simple cyst. Bernie Fernando MD Electronically Signed Final Report 08/25/2017 02:08 pm Jey Echols MD IMG US GEN ORDERABLE S * Differential, Automated (08/22/2017 12:21 PM EST) Neutrophil % 53.1 % [facility] Neutrophil Absolute 4.09 1.70 - 6.10 x10(3)/[facility] Lymph % 36.5 % [facility] Lymphocytes Abs 2.8 0.9 - 3.2 x10(3)/[facility] Monocyte % 7.7 % [facility] Monocyte Abs 0.6 0.3 - 0.9 x10(3)/[facility] Eos % 1.6 % [facility] Eosinophils Abs 0.1 0.0 - 0.4 x10(3)/[facility] Basophil % 0.7 % [facility] Baso Absolute 0.0 0.0 - 0.1 x10(3)/[facility] Immature Gran % 0.40 % [facility] Comment: Immature granulocytes(IG's)percentage and absolute count will include metamyelocytes, myelocytes, and promyelocytes. Blood smears from CBCs yielding IG's will be scanned manually for concordance. If this scan disagrees with the automated IG or if promyelocytes are noted, a manual differential will be performed. Immature Gran Absolute 0.03 0.00 - 0.04 x10(3)/[facility] Blood specimen (specimen) 08/22/2017 12:21 PM EST 08/22/2017 12:33 PM EST Narrative Resulting Agency Comment Spec In Lab Jey Echols MD HEMATOLOGY ORDERABLE S [facility] [place] [address] * Hemogram (08/22/2017 12:21 PM EST) White Blood Cell 7.7 4.0 - 9.5 x10(3)/[facility] Red Blood Cell 4.95 4.58 - 5.54 x10(6)/[facility] Hemoglobin 15.1 13.7 - 16.5 gm/dL [facility] Hematocrit 44.5 40.5 - 48.5 % [facility] Mean Cell Volume 89.9 82.9 - 93.1 [facility] Mean Cell Hemoglobin 30.5 27.5 - 32.1 pg [facility] Mean Cell Hemoglobin Concentration 33.9 32.0 - 35.7 gm/dL [facility] Platelet 198 145 - 357 x10(3)/[facility] RDW Standard Deviation 45.0 36.0 - 45.0 [facility] RDW coefficient of variation 13.7 11.4 - 13.8 % [facility] Mean Platelet Volume 10.0 7.6 - 12.9 [facility] NRBC% auto 0.0 % [facility] NRBC Absolute 0.000 0.000 - 0.000 x10(3)/[facility] Blood specimen (specimen) 08/22/2017 12:21 PM EST 08/22/2017 12:33 PM EST Narrative Resulting Agency Comment Spec In Lab Jey Echols MD HEMATOLOGY ORDERABLE S [facility] [place] [address] * Lipase (08/22/2017 12:21 PM EST) Lipase 42 0 - 60 unit/L [facility] Blood specimen (specimen) 08/22/2017 12:21 PM EST 08/22/2017 12:34 PM EST Narrative Resulting Agency Comment Spec In Lab Jey Echols MD CHEMISTRY ORDERABLES [facility] [place] [place] [address] * CMP w/fasting Glucose (08/22/2017 12:21 PM EST) Glucose Fasting 98 65 - 99 mg/dL [facility] Comment: ?Fasting* Glucose Interpretive Criteria Normal ?65-99 mg/dL Impaired Fasting glucose ?100-125 mg/dL Consistent with Diabetes Mellitus ? >or= 126 mg/dL *Fasting is defined as no caloric intake for at least 8 hours In the absence of unequivocal hyperglycemia a plasma glucose value of >or= 126 mg/dL should be repeated on a subsequent day. Diagnosis and Classification of Diabetes Mellitus, Position Statement from the [place] [employer]. ??Diabetes Care, Volume 33, Supplement 1, Jul 2009 Blood Urea Nitrogen 16 10 - 20 mg/dL [facility] Creatinine 1.00 0.80 - 1.50 mg/dL [facility] Sodium 139 135 - 145 mmol/L [facility] Potassium 4.2 3.5 - 5.0 mmol/L [facility] Comment: Please note: ??Patients with WBC >100,000 may have falsely elevated Potassium levels. ??For accurate Potassium quantification in these patients send serum separator tube (gold top) for subsequent determinations. ??Contact the Clinical Chemistry Laboratory if there are any questions. Chloride 101 98 - 107 mmol/L [facility] Carbon Dioxide 27 22 - 31 mmol/L [facility] Anion Gap 11 5 - 15 mmol/L [facility] Calcium 9.4 8.5 - 10.5 mg/dL [facility] Protein, Total 6.9 6.1 - 8.0 gm/dL [facility] Albumin 4.4 3.2 - 5.2 gm/dL [facility] Aspartate Aminotransferase 17 0 - 39 unit/L [facility] Alanine Aminotransferase 13 0 - 55 unit/L [facility] Alkaline Phosphatase 51 40 - 120 unit/L [facility] Bilirubin, Total 0.6 0.2 - 1.3 mg/dL [facility] Est Glomerular Filtration Rate >60 >=60 [facility] Comment: The reported eGFR should be multiplied by 1.2 for patients. The MDRD is not an appropriate measure of renal function for patients with body mass extremes or in patients with acute kidney failure. [email or web address] Blood specimen (specimen) 08/22/2017 12:21 PM EST 08/22/2017 12:34 PM EST Narrative Resulting Agency Comment Spec In Lab Jey Echols MD CHEMISTRY ORDERABLES [facility] [place] [address] documented in this encounter Visit Diagnoses Diagnosis RUQ pain Abdominal pain, right upper quadrant Epigastric pain Abdominal pain, epigastric RUQ pain Abdominal pain, right upper quadrant Epigastric pain Abdominal pain, epigastric documented in this encounter Care Teams Application Integration Architect Relationship Specialty Start Date End Date Reji Adams MD [facility] [place] [address] PCP - General General Internal Medicine 07/13/15 documented as of this encounter
--- OUTSIDE RECORDS SUMMARY | 2024-07-09 11:14 | XMS_ITS | Encounter Summary ---
Author Organization [facility] Address [facility] [place] [address] Care Team Providers Care Kosher Dietary Service Supervisor Name Role Phone Reji Adams MD Primary Care Provider [phone] Encounter Details Date Type Department Care Team (Latest Contact Info) Description 03/31/2018 8:07 AM EDT - 03/31/2018 11:59 PM EDT Hospital Encounter XRay at [address] [place] [address] Bebeto Lomeli MD [facility] [place] [address] Trigger finger, left ring finger Discharge Disposition: Home Social History Tobacco Use [...] daily. pravastatin (PRAVACHOL) 20 mg Tablet Take 20 mg by mouth daily. 06/04/2018 ALPRAZolam (XANAX) 0.25 mg Tablet Take 1 tablet by mouth 3 times daily as needed. 21 tablet 03/19/2018 04/09/2018 MALCOLM EXTRACT ORAL Take by mouth. 11/09/19 23 aspirin 81 mg Tablet, Delayed Release (E.C.) Take 81 mg by mouth daily. 03/17/2023 ibuprofen (ADVIL) 200 mg tablet Take 400 mg by mouth every 6 hours as needed. 05/08/2018 Saw [place] 500 mg capsule Take 500 mg by mouth daily. 03/14/2020 documented as of this encounter Plan of Treatment Upcoming Encounters Date Type Department Care Team (Late st Contact Info) Description 12/15/2024 11:30 AM EDT Office [place] [address] Charline Ziegler MD [facility] [place] [address] documented as of this encounter Procedures Procedure Name Priority Date/Time Associated Diagnosis Comments XR FINGER(S) MIN 2 VIEWS LEFT Routine 03/31/2018 8:16 AM EDT Trigger finger, left ring finger documented in this encounter Results * XR Fingers Min 2 views Left (Generic) (03/31/2018 8:16 AM EDT) Anatomical Region Laterality Modality Hand Left Digital Radiogra phy Impressions 03/31/2018 9:31 AM EDT No abnormality of the ring finger. Narrative 03/31/2018 9:31 AM EDT EXAMINATION: XR FINGERS MIN 2 VIEWS LEFT (GENERIC) CLINICAL HISTORY: Trigger finger, left ring finger TECHNIQUE: Left hand PA, left ring finger oblique and lateral COMPARISON: None FINDINGS: Evaluation of the ring finger reveals no destructive bone lesion or cortical-based abnormality. The joint spaces are intact. There is narrowing and sclerosis of the triscaphe joint indicating degenerative arthropathy. There is a small amount of hydroxyapatite deposition at the first carpal metacarpal joint. Procedure Note Rayo Calzada MD - 03/31/2018 EXAMINATION: XR FINGERS MIN 2 VIEWS LEFT (GENERIC) CLINICAL HISTORY: Trigger finger, left ring finger TECHNIQUE: Left hand PA, left ring finger oblique and lateral COMPARISON: None FINDINGS: Evaluation of the ring finger reveals no destructive bone lesion or cortical-based abnormality. The joint spaces are intact. There is narrowing and sclerosis of the triscaphe joint indicatingdegenerative arthropathy. There is a small amount of hydroxyapatite deposition at thefirst carpal metacarpal joint. IMPRESSION No abnormality of the ring finger. Bebeto Lomeli MD IMG DX ORDERABLES documented in this encounter Visit Diagnoses Diagnosis Trigger finger, left ring finger documented in this encounter Care Teams Kosher Dietary Service Supervisor Relationship Specialty Start Date End Date Reji Adams MD [facility] [place] [address] PCP - General General Internal Medicine 07/13/15 documented as of this encounter
--- OUTSIDE RECORDS SUMMARY | 2024-07-09 11:14 | XMS_ITS | Encounter Summary ---
Author Organization Formerly [facility] [place] [address] Care Team Providers Care Bag Shaker Name Role Phone Reji Adams MD Primary Care Provider [phone] Encounter Details Date Type Department Care Team (Latest Contact Info) Description 10/23/2017 2:00 PM EDT Laboratory Appointment Lab [address] [place] [phone] Elevated PSA; Hypogonadism in male Social History Tobacco Use Types Packs/Day Years [...] 11:30 AM EDT Office [place] [phone] Charline Ziegler MD [facility] [place] [address] documented as of this encounter Procedures Procedure Name Priority Date/Time Associated Diagnosis Comments TESTOSTERONE, TOTAL AND FREE STAT 10/23/2017 1:54 PM EDT Hypogonadism in male PSA (ULTRASENSITIVE) STAT 10/23/2017 1:54 PM EDT Elevated PSA documented in this encounter Results * Testosterone, total and free (10/23/2017 1:54 PM EDT) Testo Total 493 250 - 1100 ng/dL [facility] Comment: Men with clinically significant hypogonadal symptoms and testosterone values repeatedly in the range of the 200-300 ng/dL or less, may benefit from testosterone treatment after adequate risk and benefits counseling. For more information on this test, go to http://education.[employer]/faq/ TotalTestosteroneLCMSMS This test was developed and its analytical performance characteristics have been determined by [facility] [place], [place]. It has not been cleared or approved by the U.S. Food and Drug Administration. This assay has been validated pursuant to the CLIA regulations and is used for clinical purposes. Testo Free (NOVEMBER) 47.8 30.0 - 135.0 pg/mL [facility] Comment: This test was developed and its analytical performance characteristics have been determined by [facility] [place] [place]. It has not been cleared or approved by the U.S. Food and Drug Administration. This assay has been validated pursuant to the CLIA regulations and is used for clinical purposes. Test Performed by [facility], [address] [place], [place] Law Duke M.D., Ph.D., Director of Laboratories , CLIA [id number] Blood specimen (specimen) 10/23/2017 1:54 PM EDT 10/23/2017 4:47 PM EDT Narrative Resulting Agency Comment Spec In Lab Tobias Mcginnis MD LAB SEND OUT ORDER DALILA [facility] [place] [address] * (ABNORMAL) PSA (10/23/2017 1:54 PM EDT) Prostate Specific Antigen (Ultrasensitiv e) 6.62(H) 0.00 - 4.00 ng/mL [facility] Blood specimen (specimen) 10/23/2017 1:54 PM EDT 10/23/2017 2:03 PM EDT Narrative Resulting Agency Comment Spec In Lab Tobias Mcginnis MD CHEMISTRY ORDERABL ES [facility] [place] [address] documented in this encounter Visit Diagnoses Diagnosis Elevated PSA Elevated prostate specific antigen (PSA) Hypogonadism in male documented in this encounter Care Teams Bag Shaker Relationship Specialty Start Date End Date Reji Adams MD [facility] GENERAL INTERNAL [place] [address] PCP - General General Internal Medicine 07/13/15 documented as of this encounter
--- OUTSIDE RECORDS SUMMARY | 2024-07-09 11:14 | XMS_ITS | Encounter Summary ---
Author Organization [facility] Address [facility] [place] [address] Care Team Providers Care Nursing Home Social Worker Name Role Phone Reji Adams MD Primary Care Provider [phone] Encounter Details Date Type Department Care Team (Late st Contact Info) Description 09/02/2017 12:40 PM EST - 09/02/2017 3:13 PM EST Hospital Encounter [place] [address] Rahul Escobar MD [facility] [place] [address] Discharge Disposition: Home Social History Tobacco Use [...] Sign Reading Time Taken Comments Blood Pressure 107/69 09/02/2017 2:45 PM EST Pulse 56 09/02/2017 2:32 PM EST Temperature - - Respiratory Rate 17 09/02/2017 2:32 PM EST Oxygen Saturation 95% 09/02/2017 2:45 PM EST Inhaled Oxygen Concentration - - Weight - - Height - - Body Mass Index - - documented in this encounter Discharge Instructions * Discharge Instructions* Law Quan RN - 09/02/2017 2:34 PM EST UPPER GI ENDOSCOPY WHAT TO EXPECT AFTER THE PROCEDURE After the test you may feel a little more gassy or bloated than usual, this is normal. ACTIVITY Because of the sedation that you received Your judgement and reaction time are affected ?? Go home and rest quietly for the remainder of the day. You may resume your normal activities tomorrow. ?? Change from one position to the next slowly. You may lose your balance unexpectedly Be careful on stairs, as you may be unsteady on your feet. FOR THE NEXT 24 HRS ?? DO NOT DRIVE OR OPERATE ANY MACHINERY ?? DO NOT DRINK ALCOHOLIC BEVERAGES ?? DO NOT SIGN LEGAL DOCUMENTS ?? If you are a smoker: DO NOT SMOKE WHILE YOU ARE ALONE Diet ?? Start by eating small portions of foods that ordinarily will not upset your stomach. Be gentle with what you choose to start with. ?? Drink plenty of fluids ( unless otherwise told not to) Medications You may have a mild sore throat. Ice chips, popsicles, over the counter throat lozenges or spray may help numb your throat. This procedure should not cause a fever. IV SITE-- slight redness or tenderness is normal, you can use warm compresses if you get concerned.If the tenderness +/or redness increases or foul drainage and a red streak occurs, please contact your PCP immediately. WHEN SHOULD YOU CALL FOR HELP? Call 911 anytime you think that you need emergency care. For example, call if: You passed out (lost consciousness). You cough up blood. You vomit blood or what looks like coffee grounds. You pass maroon or very bloody stools. Call your healthcare provider or seek immediate medical attention if: You have trouble swallowing. You have belly pain. Your stools are black or tarlike or have streaks of blood. You are sick to your stomach or cannot keep fluids down. Watch closely for changes in your health, and be sure to contact your doctor IF Your throat still hurts after a day or two You do not get better as expected. Friday-Friday Same Day Endo [phone] 7a-8p Otherwise contact [phone] and ask to speak to the metal sprayer protective coating supply controller Follow-up care is a enrique part of your treatment and safety. Be sure to make and go to all appointments, and call your doctor if you are having problems. Instructions have been reviewed and patient expresses understanding documented in this encounter Medications [...] 3 times daily as needed. 03/19/2018 Saw Cutler 500 mg capsule Take 500 mg by mouth daily. 03/14/2020 documented as of this encounter H&P Notes * Rahul Escobar MD - 09/02/2017 1:44 PM EST Patient Name: Ken Mckeon Patient Age: 71 y.o. Birthdate: 1945 Admit date: 09/02/2017 Attending Physician: Rahul Escobar MD Gastroenterology & Hepatology Pre-Procedure History and Physical Planned Procedure: EGD: Indication: GERD Patient Active Problem List Diagnosis Code ??? [...] G89.29 ??? 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 Penicillins Anaphylaxis Tongue swelling Social History/Family History: Reviewed in EDH. No changes Exam: Most Recent Vitals: 09/02/17 1321 BP: 111/70 Pulse: 69 Resp: 18 SpO2: 98% GEN: NAD, AAOX3 HEENT: NC/AT dryMM, anicteric Chest: CTAB Heart: RRR, nl s1, s2 Abdomen: normal bowel sounds, soft, non tender Assessment and Plan: Proceed with EGD: ASA Grade: ASA 2 - Patient with mild systemic disease with no functional limitations Mallampati: I (soft palate, uvula, fauces, tonsillar pillars visible) Sedation plan: Moderate Conscious sedation Risks and benefits of the procedure were discussed with the patient. Consent has been signed. documented in this encounter Plan of Treatment Upcoming Encounters Date Type Department Care Team (Late st Contact Info) Description 12/15/2024 11:30 AM EDT Office [place] [address] Charline Ziegler MD [facility] [place] [address] documented as of this encounter Procedures Procedure Name Priority Date/Time Associated Diagnosis Comments SURGICAL PATHOLOGY REPORT Routine 09/02/2017 2:24 PM EST SPECIMEN TO PATHOLOGY Routine 09/02/2017 2:24 PM EST EGD WITH BIOPSY (WRVU 2.39) 09/02/2017 2:04 PM EST refractory GERD UPPER GI ENDOSCOPY Routine 09/02/2017 1: 50 PM EST documented in this encounter Results * Surgical Pathology Report (09/02/2017 2:24 PM EST) Final Diagnosis [id number] ? Location: 4T; EA09; A The signing pathologist has (i) examined the relevant preparation(s) for the specimen(s) and (ii) rendered or confirmed the diagnosis(es). . ?Surgical Pathology DIAGNOSIS Gastric, ??biopsy: Gastric fundic gland and junctional mucosa within normal limits. No H. pylori-like microorganism is seen. Electronically signed by: ??John Parish MD Verified: ??09/05/2017 ?Pathologist Performed at: ??-[facility] Dept. of Pathology, [place], [place] CLINICAL INFORMATION Specimen Submitted: A - Gastric bx 's Clinical History: Chronic GERD, patchy erythema in antrum Clinical Diagnosis: Same SPECIMEN PROCESSING A - Labeled/Fixative: Gastric biopsies, formalin. Quantity/Size: Six, 0.2-0.4 cm. Tissue Description: ??Soft, davila-pink tissue ??. Sections/Processi ng: (T2) ??ejr 09/05/2017 3:00 PM EST [facility] GI Biopsy 09/02/2017 2:24 PM EST 09/02/2017 2:24 PM EST Rahul Escobar MD PATHOLOGY/CYTOLOG Y ORDERABLES [facility] [place] [address] * Specimen to Pathology (09/02/2017 2:24 PM EST) AP Specimen 09/02/2017 2:24 PM EST 09/02/2017 2:34 PM EST Narrative [facility] - 09/02/2017 2:34 PM EST Specimen requisition ordered. ??Separate Pathology report to follow Resulting Agency Comment Spec In Lab Rahul Escobar MD PATHOLOGY/CYTOLOG Y ORDERABLES [facility] [place] [address] * UPPER GI ENDOSCOPY (09/02/2017 1:50 PM EST) UPPER GI ENDOSCOPY [facility] Endoscopy Procedure Date: 09/02/2017 1:50 PM ? Patient Name: Ken Mckeon ? N: [id number] ? Date of : 1945 ? Age: 71 ? Order #: [id number] ? Instrument Name: [id number] ? Procedure: ? Upper GI endoscopy Indications: ? Screening for Ventura's esophagus in ? patient at risk for this condition, ? Follow-up of gastro-esophageal reflux ? disease Patient Profile: ? This is a 71 year old male. Refer to ? note in patient chart for ? documentation of history and physical. Providers: ? Rahul Escobar MD, Seth Myrick ? AGNIESZKA Ortega, Amanda Orr Referring : ?Reji Adams MD Requesting Provider: Amanda Burroughs Medicines: ? Midazolam 4 mg IV, Fentanyl 150 ? micrograms IV Complications: ? No immediate complications. Procedure: ? Pre-Anesthesia Assessment: ? - Prior to the procedure, a History ? and Physical was performed, and ? patient medications and allergies ? were reviewed. The patient's ? tolerance of previous anesthesia was ? also reviewed. The risks and benefits ? of the procedure and the sedation ? options and risks were discussed with ? the patient. All questions were ? answered, and informed consent was ? obtained. Prior Anticoagulants: The ? patient has taken no previous ? anticoagulant or antiplatelet agents. ? ASA Grade Assessment: II - A patient ? with mild systemic disease. After ? reviewing the risks and benefits, the ? patient was deemed in satisfactory ? condition to undergo the procedure. ? The procedure, indications, benefits, ? risks and alternatives were explained ? to the patient. Specifically ? discussed were potential ? complications including, but not ? limited to, bleeding, perforation, ? infection, missing a cancer, and ? adverse medication reactions. The ? Endoscope was introduced through the ? mouth, and advanced to the third part ? of duodenum. The patient tolerated ? the procedure well. The upper GI ? endoscopy was accomplished without ? difficulty. The patient tolerated the ? procedure well. ? Findings: ? The examined esophagus was normal. ? The Z-line was regular and was found 44 cm from the ? incisors. There is no evidence of Ventura's esophagus. ? Multiple scattered diminutive non-bleeding erosions ? and erythematous spots were found in the gastric ? antrum and in the prepyloric region of the stomach. ? There were no stigmata of recent bleeding. Biopsies ? were taken with a cold forceps for histology and to ? rule out H.pylori. ? The exam of the stomach was otherwise normal. ? The examined duodenum was normal. ? Moderate Sedation: ? I was present during the intraservice time as ? documented by the sedation RN. Impression: ?- Normal esophagus. ? - Z-line regular, 44 cm from the ? incisors. ? - Non-bleeding erosive gastropathy. ? Biopsied. Most consistent with ? aspirin/NSAID use. ? - Normal examined duodenum. Recommendation: ?- Await pathology results. ? - Suggest minimizing NSAIDs. Daily ? low dose Aspirin is OK but if using ? NSAIDs on a daily basis would ? consider adding PPI therapy to ? prevent ulcers. Favor minimizing ? NSAIDs (e.g Ibuprofen, Naproxen) or ? change to Celebrex if needed. ? - Follow an antireflux regimen. This ? includes: ? - Do not lie down for at least 3 to 4 ? hours after meals. ? - Raise the head of the bed 4 to 6 ? inches. ? - Decrease excess weight. ? - Avoid citrus juices and other ? acidic foods, alcohol, chocolate, ? mints, coffee and other caffeinated ? beverages, carbonated beverages, ? fatty and fried foods. ? - Avoid tight-fitting clothing. ? - Avoid cigarettes and other tobacco ? products. ? Attending Participation: ? I personally performed the entire procedure. ? I was present during the intraservice time as ? documented by the sedation RN. ? Dr. Nikolas Escobar ____ Rahul Escobar MD 09/02/2017 2:33:12 PM Number of Addenda: 0 Note Initiated On: 09/02/2017 1:50 PM PROVATION 09/02/2017 1:50 PM EST Reji Adams MD GENERAL SURGICAL ORD ERABLES [employer]ATION documented in this encounter Visit Diagnoses Not on filedocumented in this encounter Active and Recently Administered Medications Times are shown in EST. PRN Medication Order 08/31/2017 09/01/2017 09/02/2017 fentaNYL 50 mcg/mL multi-dose injection (CANCELED) ONCE PRN, Starting on 09/02/17 at 1410, Until 09/02/17 at 1713, Intra-Operative (Intra-Procedure), Routine 1410 (Given - Provid er: Seth Ortega RN)1414 (Given - Provider: Seth Ortega RN)1417 (Given - Provider: Seth Ortega RN)1420 (Given - Provider: Seth Ortega RN) midazolam (PF) (VERSED) 1 mg/mL multi-dose injection (CANCELED) ONCE PRN, Starting on 09/02/17 at 1410, Until 09/02/17 at 1713, Intra-Operative (Intra-Procedure), Routine 1410 (Given - Provid er: Seth Ortega RN)1411 (Given - Provider: Seth Ortega RN)1414 (Given - Provider: Seth Ortega RN)1417 (Given - Provider: Seth Ortega RN)1420 (Given - Provider: Seth Ortega RN) documented in this encounter Care Teams Nursing Home Social Worker Relationship Specialty Start Date End Date Reji Adams MD [facility] [place] [address] PCP - General General Internal Medicine 07/13/15 documented as of this encounter
--- OUTSIDE RECORDS SUMMARY | 2024-07-09 11:14 | XMS_ITS | Encounter Summary ---
Author Organization [facility] Address [facility] [place] [address] Care Team Providers Care Engine Lathe Set Up Operator Name Role Phone Reji Adams MD Primary Care Provider [phone] Reason for Visit * Reason Comments Left Hand Pain left ring finger tri gger finger * Consultation (Routine) - Closed Specialty Diagnoses / Procedures Referred By Duglas arizmendi Referred To Contact Orthopaedics Reji Adams MD [facility] [place] [address] [facility] [address] [place] [phone] Referral ID Status Reason Start Date Expiration Date V isits Requested Visits Authorized [id number] Closed Consult, Test & Treat 03/16/2018 03/16/2019 1 1 Encounter Details Date Type Department Care Team (Late st Contact Info) Description 03/31/2018 9:00 AM EDT Office [place] [address] Bebeto Lomeli MD [facility] [place] [address] Trigger finger, left ring finger Social History Tobacco Use Types Packs/Day Years [...] Sign Reading Time Taken Comments Blood Pressure 114/75 03/31/2018 8:57 AM EDT Pulse 67 03/31/2018 8:57 AM EDT Temperature - - Respiratory Rate - - Oxygen Saturation - - Inhaled Oxygen Concentration - - Weight 88 kg (194 lb) 03/31/2018 8:57 AM EDT loreto bal Height 177.8 cm (5' 10) 03/31/2018 8:57 AM EDT verbal Body Mass Index 27.84 03/31/2018 8:57 AM EDT documented in this encounter Progress Notes * Rodrigo Mccain PA - 03/31/2018 9:00 AM EDT PATIENT NAME: Ken Mckeon AGE: 72 y.o. MR#: [id number] DATE OF VISIT: 03/31/2018 DATE OF INJURY/ONSET: December 2017 STAFF: Dr. Lomeli CHIEF COMPLAINT: Left ring finger triggering HISTORY OF PRESENT ILLNESS: Mr. Mckeon is a right hand dominant 72 y.o. male who comes into clinic today for evaluation of his left ring finger. He reports that it started to trigger about 2-3 months ago and happens most commonly in the morning. Patient notes to have pain when it triggers but it is otherwise on painful and is worse when he walks. Mr. Mckeon does have a history of right ring trigger finger, which was treated with betamethasone injections. He reports that this caused him 2 days of hiccups which also occurred after both a shoulder and hip injection. Patient states he had been using tape at night which seems to moderately help. He denies any numbness and tingling in his fingers or any fevers, chills or other signs of infection. Medications and Allergies were reviewed in eD-H PAST MEDICAL HX: Past Medical History: Diagnosis Date ??? BPH (benign prostatic hyperplasia) ??? Neck pain 08/24/2012 ??? OA (osteoarthritis) of knee right PAST SURGICAL HX: Past Surgical History: Procedure Laterality Date ??? CREATED BY INTERFACE Past surg hx. Procedure Date: 09/19/2010 ??? PRO COLONOSCOPY, DIAGNOSTIC 09/07/2013 COLONOSCOPY, DIAGNOSTIC performed by Ximena Gu MD at [facility] ENDOSCOPY ??? PRO LIGATE/STRIP LONG SAPH VEIN BELW SEP-FEM JUNC 06/02/2012 LIGATION\DIV\STRIP GREATER SAPHENOUS VEIN performed by BEATRICE RODRÍGUEZ at [facility] MAIN OR ??? PRO PHLEB VEINS - EXTREM - TO 20 06/02/2012 STAB PHLEBECTOMY KARLI VEINS, EXTREMITY 10-20 INCISIONS-SANTI performed by BEATRICE RODRÍGUEZ at [facility] MA[facility] OR ??? PRO UPPER GI ENDOSCOPY, BIOPSY N/A 09/02/2017 EGD WITH BIOPSY (WRVU 2.49) performed by Rahlu Escobar MD at [facility] ENDOSCOPY SOCIAL HX: Social History Occupational History ??? retired Social History Main Topics ??? Smoking status: Never Smoker ??? Smokeless tobacco: Current User Types: Chew Comment: 3 cans/ week. ??? Alcohol use 0.0 - 0.6 oz/week 0 - 1 Cans of beer per week Comment: rarely ??? Drug use: No ??? Sexual activity: Yes Partners: Female Activities: Archery ROS: Musculoskeletal: see HPI General Health, Prior Treatments, PreExisting Condition, Health Habits, About You 03/31/2018 PROMIS-10 General Health Very Good PROMIS-10 Quality of Life Good PROMIS-10 Physical Health Very Good PROMIS-10 Mental Health Very Good PROMIS-10 Social Activity Very Good PROMIS-10 Everyday Activities Completely PROMIS-10 Pain 5 PROMIS-10 Fatigue Moderate PROMIS-10 Social Roles Excellent PROMIS-10 Anxious or Depressed Never PROMIS PHYSICAL SCORE (range 16-68) 47.7 PROMIS MENTAL SCORE (range 21-68) 53.3 Treatments Tried Acetaminophen (e.g. Tylenol) Prior Surgery - Alzheimers or dementia No Cirrohosis or liver disease No HIV/AIDS No Pain in more than one joint in legs Yes Back or neck pain Yes Heart attack No Heart failure No Unclog/bypass leg arteries No Stroke, blood clot, TIA No Asthma No Emphysema, chronic bronchities, or COPD No Stomach ulcers/peptic ulcer disease No Diabetes No Poor kidney function No Rheumatic condtions No Cancer No Weight (lbs) 195 Height (feet) 5 feet Height (Inches) 10 BMI 27.97 (Overweight) Ever used tobacco products Yes WHO - Tobacco Advice Incomplete Live Alone No Marital situation / Schooling Some college or 2 - year degree Combined Household Income Prefer not to answer Health Literacy Quite a bit Orth[facility] Response 06/26/2017 ASES VAS-RIGHT - ASES VAS-LEFT 5 ASES ADL-RIGHT ARM - ASES ADL-LEFT ARM 28 ASES RIGHT ARM - ASES LEFT ARM 71.66 Spine [facility] Response 08/14/2014 Neck (NDI) Score 28 (Mild disability) PHYSICAL EXAM: Mr. Mckeon is a 72 y.o. male who is alert and oriented. He is in no acute discomfort and is resting comfortably in the exam room. Inspection: No swelling, erythema or signs of infection of the left ring finger. Palpation: There is a palpable nodule of the A1 cheikh that is mildly tender to palpation. ROM/Strength: Full flexion and extension of the left ring finger. Neurovascular: Sensation and motor function are in tact along the ulnar, median, and radial nerve roots. DIAGNOSTIC STUDIES: Xrays from today were personally reviewed with the patient. He has some mild joint space narrowing of his IP joints, but it is otherwise unremarkable. ASSESSMENT: Mr. Mckeon is a 72 y/o RHD male presenting with left ring trigger finger. This has been occurring over the past 2-3 months and is worse in the morning and while walking. Overall he states it is only mildly painful and has been ambar taping his ring and long finger together at night which provides moderate relief. We discussed his treatment options today, which included continued taping,splinting, steroid injection or A1 cheikh release completed surgically. Due to his history of hiccups after a steroid injection and the fact that he will be away for part of March, he would like to continued taping for this period of time. He does have a left shoulder surgery scheduled at the beginning of April and we suggested that he could complete the trigger finger release at the same time. Mr. Mckeon is going to contact his shoulder surgeon and will report back to us whether or not he is willing to do both surgeries at the same time. PLAN: Continue to tape the left ring and long finger together at night. He will return for follow up only as needed if he is unable to get the trigger finger surgery completed on the same day as shoulder surgery. The patient understands to contact us if they have any other questions or concerns. The above documentation was completed using [employer] voice recognition software. * Bebeto Lomeli MD - 03/31/2018 9:00 AM EDT I saw Ken Mckeon with Rodrigo GUTIERREZ. He has a left ring trigger finger but is concerned abouthaving a steroid injection because of prior prolonged hiccups related to steroid injections in the past. He is scheduled to have left shoulder surgery coming up by Dr. Zurdo Daniel and I did suggest to him that he talk to Dr. Daniel about perhaps having his left ring trigger finger treated atthe same setting with A1 cheikh release. He will contact me for care in the future on a as needed basis. documented in this encounter Plan of Treatment Upcoming Encounters Date Type Department Care Team (Late st Contact Info) Description 12/15/2024 11:30 AM EDT Office [place] [address] Charline Ziegler MD [facility] [address] documented as of this encounter Visit Diagnoses Diagnosis Trigger finger, left ring finger documented in this encounter Care Teams Engine Lathe Set Up Operator Relationship Specialty Start Date End Date Reji Adams MD [facility] [place] [address] PCP - General General Internal Medicine 07/13/15 documented as of this encounter
--- OUTSIDE RECORDS SUMMARY | 2024-07-09 11:14 | XMS_ITS | Encounter Summary ---
Author Organization [facility]ending [facility] Address [facility] [place] [address] Care Team Providers Care Overlock Collar Setter Name Role Phone Reji Adams MD Primary Care Provider [phone] Reason for Visit * Reason Comments Anxiety Trigger finger Encounter Details Date Type Department Care Team (Late st Contact Info) Description 04/07/2018 1:20 PM EDT Office Visit Internal Medicine at [address] [address] Reji Adams MD [facility] [place] [address] Anxiety; Trigger ring finger of left hand Social History Tobacco Use Types Packs/Day Years [...] Sign Reading Time Taken Comments Blood Pressure 117/70 04/07/2018 1:24 PM EDT Pulse 67 04/07/2018 1:24 PM EDT Temperature - - Respiratory Rate - - Oxygen Saturation 100% 04/07/2018 1:24 PM EDT Inhaled Oxygen Concentration - - Weight 90.7 kg (200 lb) 04/07/2018 1:24 PM EDT w reggie valdes Height 179.1 cm (5' 10.5) 04/07/2018 1:24 PM ED T Body Mass Index 28.29 04/07/2018 1:24 PM EDT documented in this encounter Progress Notes * Reji Adams MD - 04/07/2018 1:20 PM EDT ESTABLISHED PATIENT VISIT I. HISTORY a. Reason(s) for Visit: Ken Mckeon 72 y.o. male who presents today due to complaint(s) of: Chief Complaint Patient presents with ??? Anxiety Trigger finger b. History of Present Illness:[] Trigger finger L hand: seen by ortho, planned to continue taping at this time. Anxiety: Started on clonazepam 0.5mg bid 03/17/18 but never filled and continued on alprazolam 0.25mg tid. A lot of stress. Has declined SSRIS multiple times in the past. States is no change in sxs but does not want to change meds at this time. c. Review of Systems: Constitutional - no [...] week Comment: rarely II. PHYSICAL EXAM: BP 117/70 Pulse 67 Ht 179.1 cm (5' 10.5) Wt 90.7 kg (200 lb) Comment: with shoes SpO2 100% BMI 28.29 kg/m2 General - No acute distress, conversing without difficulty. ENT - oropharynx without lesions. Eyes - EOMI. No scleral icterus Extremities - No clubbing, cyanosis or edema. III. ASSESSMENT/PLAN:Ken Mckeon 72 y.o. male presenting for f/u. Ken was seen today for anxiety. Diagnoses and all orders for this visit: Anxiety - Will trial tapering down on xanax. Pt not interested in any other meds at this time Trigger ring finger of left hand - Agree with surgical intervention in Oct Meds reconciled documented in this encounter Plan of Treatment Upcoming Encounters Date Type Department Care Team (Late st Contact Info) Description 12/15/2024 11:30 AM EDT Office [place] [address] Charline Ziegler MD [facility] [place] [address] documented as of this encounter Visit Diagnoses Diagnosis Anxiety Anxiety state, unspecified Trigger ring finger of left hand Trigger finger (acquired) documented in this encounter Care Teams Overlock Collar Setter Relationship Specialty Start Date End Date Reji Adams MD [facility] [place] [address] PCP - General General Internal Medicine 07/13/15 documented as of this encounter
--- OUTSIDE RECORDS SUMMARY | 2024-07-09 11:14 | XMS_ITS | Encounter Summary ---
Author Organization [facility] Address [facility] [place] [address] Care Team Providers Care Gyroscopic Engineering Technician Name Role Phone Reji Adams MD Primary Care Provider [phone] Reason for Visit * Reason Comments Follow-up Encounter Details Date Type Department Care Team (Late st Contact Info) Description 07/29/2017 11:00 AM EST Office [place] [address] Amanda Burroughs, BRICK CATCHER [address] [place] [address] Constipation, unspecified constipation type; Dyspepsia Social History [...] Sign Reading Time Taken Comments Blood Pressure 115/70 07/29/2017 10:45 AM EST Pulse 73 07/29/2017 10:45 AM EST Temperature - - Respiratory Rate - - Oxygen Saturation - - Inhaled Oxygen Concentration - - Weight 94.3 kg (208 lb) 07/29/2017 10:45 AM EST Height 179.1 cm (5' 10.5) 07/29/2017 10:45 AM Javi MORENO Body Mass Index 29.42 07/29/2017 10:45 AM EST documented in this encounter Patient Instructions * Patient Instructions* Amanda Burroughs APRN - 07/29/2017 11:00 AM EST 1. Anorectal manometry 2. Enteric coated peppermint oil four times a day on an empty stomach as needed for abdominal pain and cramps 3. Limit fiber to 20-25 grams per day 4. Low-FODMAP diet x 2-4 weeks, gradually reintroduce one food at a time to identify triggers 5. Follow up as needed. documented in this encounter Progress Notes * Amanda Burroughs APRN - 07/29/2017 11:00 AM EST ORDER MANAGEMENT SPECIALIST: Amanda Burroughs APRN PCP: Reji Adams MD REQUESTING PROVIDER: Ron Burns MD REASON FOR VISIT This is a nice 71 y.o. male [...] gas pattern. No evidence of free air. --DIET/LIFESTYLE *Low-FODMAP diet *Squatty potty/foot stool *Limit fiber to 20-15 grams per day *Bathroom routines --MEDICATION TRIALS *Miralax *Glycerin suppository INTERVAL HISTORY- 07/29/17 Endorses worsening constipation. Is currently producing small bowel movements on a daily to every other day basis. Was taking miralax 2 capfuls in the morning and evening. This didn't produce results. Has stopped taking laxatives for approximately two and a half, three days ago. Dulcolax stool softener. Took a glycerin suppository for three evenings with small results. Straining and incomplete emptying. No blood or mucus in stool. No blood in stool. Some mucus in stool. No anal or rectal pain. Milk of magnesia isn't helpful. Abdominal discomfort and pain. Yesterday, experienced fecal urgency. I almost didn't make it to the bathroom. Produced a large bowel movement. Hot and cold foods seem to worsen upper GI symptoms. Dyspeptic symptoms. Improved with passage of stool. HPI COMMENTS Prior to the onset of [...] a change in stool quantity and size. [place] type 4, but small like a tootsie [...] reconciled in e-DH Current Outpatient Prescriptions: ??? aspirin 81 mg Tablet, Delayed Release [...] mouth daily., Disp: , Rfl: ??? Saw [place] 500 mg capsule, Take 500 mg by mouth daily., Disp: , Rfl: MEDICAL HISTORY Past Medical History: Diagnosis Date ??? BPH (benign prostatic hyperplasia) ??? Neck pain 08/24/2012 ??? OA (osteoarthritis) of knee right SURGICAL HISTORY Past Surgical History: Procedure Laterality Date ??? CREATED BY INTERFACE Past surg hx. Procedure Date: 09/19/2010 ??? PRO COLONOSCOPY, DIAGNOSTIC 09/07/2013 COLONOSCOPY, DIAGNOSTIC performed by Ximena Gu MD at [facility] ENDOSCOPY ??? PRO LIGATE/STRIP LONG SAPH VEIN BELW SEP-FEM JUNC 06/02/2012 LIGATION\DIV\STRIP GREATER SAPHENOUS VEIN performed by BEATRICE RODRÍGUEZ at [facility] MAIN OR ??? 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 Partner- 10 years. Has 3 kids; 2 girls, one boy HABITS Chews tobacco use. Rare alcohol use. Denies using other substances. FAMILY HISTORY Denies family history of celiac disease, esophageal cancer, stomach cancer, colon cancer, pancreatic or liver issues, and IBD. PHYSICAL EXAM: There were no vitals filed for this visit. Height: Weight: There is no height or weight on file to calculate BMI. GENERAL: Healthy-appearing in no acute distress. Appears [...] 06/18/2017 Lab Results Component Value Date TSH 0.75 07/18/2017 ASSESSMENT This is a nice 71 y.o. male with a history significant for anxiety, depression, and urinary urgencywho returns to me today in follow up. 1. DYSPEPSIA Improved with passage of stool. Consider visceral hypersensitivity. Recommend stress reduction/anxiety management. Consider utility of EGD. 2. CONSTIPATION Refractory constipation despite laxative use. Consider pelvic floor component. We discussed the utility of anorectal manometry versus pelvic floor PT. He would like to go ahead with anorectal manometry. Consider utility of lubiprostone/linaclotide. Consider utility of Sitz Marker study. PLAN 1. Anorectal manometry 2. Enteric coated peppermint oil four times a day on an empty stomach as needed for abdominal pain and cramps 3. Limit fiber to 20-25 grams per day 4. Low-FODMAP diet x 2-4 weeks, gradually reintroduce one food at a time to identify triggers 5. Follow up as needed. Patient agrees with the above plan. I did my best to answer his questions. TIME SPENT WITH PATIENT 25 minutes of this 26 minute visit were spent in [id number] discussion and counseling the patientas detailed per above. Signed, Amanda Burroughs APRN 07/29/17 11:29 AM Section of Gastroenterology & Hepatology [facility] documented in this encounter Plan of Treatment Upcoming Encounters Date Type Department Care Team (Late st Contact Info) Description 12/15/2024 11:30 AM EDT Office [place] [address] Charline Ziegler MD [facility] [place] [address] documented as of this encounter Visit Diagnoses Diagnosis Constipation, unspecified constipation type Dyspepsia Dyspepsia and other specified disorders of function of stomach documented in this encounter Care Teams Gyroscopic Engineering Technician Relationship Specialty Start Date End Date Reji Adams MD [facility] GENER[place] [address] PCP - General General Internal Medicine 07/13/15 documented as of this encounter
--- OUTSIDE RECORDS SUMMARY | 2024-07-09 11:14 | XMS_ITS | Encounter Summary ---
Author Organization [facility] Address [facility] [place] [address] Care Team Providers Care Entry Level Accounting Clerk Name Role Phone Reji Adams MD Primary Care Provider [phone] Encounter Details Date Type Department Care Team ([facility] Contact Info) Description 08/22/2017 Abstract Darlin Vieira Conversion Results [address] [place] [id number] Apd Conversion, Flowsheet Provider, Social History Tobacco Use Types Packs/Day [...] Sign Reading Time Taken Comments Blood Pressure 122/80 08/22/2017 8:48 AM EST Sourced from [facility] Conversion Pulse - - Temperature - - Respiratory Rate - - Oxygen Saturation - - Inhaled Oxygen Concentration - - Weight 93.7 kg (206 lb 9.1 oz) 08/22/2017 8:48 AM EST Sourced from [facility] Conversion Height 180 cm (5' 10.87) 08/22/2017 8: 48 AM EST Sourced from [facility] Conversion Body Mass Index 28.92 08/22/2017 8:48 AM EST documented in this encounter Plan of Treatment Upcoming Encounters Date Type Department Care Team (Late Contact Info) Description 12/15/2024 11:30 AM EDT Office [place] [address] Charline Ziegler MD [facility] [place] [address] documented as of this encounter Visit Diagnoses Not on filedocumented in this encounter Care Teams Entry Level Accounting Clerk Relationship Specialty Start Date End Date Reji Adams MD [facility] GENERAL [place] [address] PCP - General General Internal Medicine 07/13/15 documented as of this encounter
--- OUTSIDE RECORDS SUMMARY | 2024-07-09 11:14 | XMS_ITS | Encounter Summary ---
Author Organization [facility] Address [facility] [place] [address] Care Team Providers Care Sociology Teacher Name Role Phone Reji Adams MD Primary Care Provider [phone] Reason for Visit * Reason Comments Weight Loss Blurred Vision going on for couple weeks, has eye appointment tomorrow Encounter Details Date Type Department Care Team (Late st Contact Info) Description 12/24/2017 4:20 PM EDT Office Visit Internal Medicine at [address] [id number] Mirlande New MD [facility] [place] [address] Weight loss; Blurred vision, bilateral; Other specified abnormal findings of blood chemistry ; Chronic nonintractable headache, unspecified headache type; Low TSH level Social History Tobacco Use [...] Sign Reading Time Taken Comments Blood Pressure 97/60 12/24/2017 4:09 PM EDT Pulse 77 12/24/2017 4:09 PM EDT Temperature 36.7 ??C (98.1 ??F) 12/24/2017 4:09 PM ED T Respiratory Rate - - Oxygen Saturation 99% 12/24/2017 4:09 PM EDT Inhaled Oxygen Concentration - - Weight 91.8 kg (202 lb 6.4 oz) 12/24/2017 4:09 P M EDT Height 178.1 cm (5' 10.1) 12/24/2017 4:09 PM ED T Body Mass Index 28.96 12/24/2017 4:09 PM EDT documented in this encounter Progress Notes * Mirlande New MD - 12/24/2017 4:20 PM EDT ESTABLISHED PATIENT ACUTE VISIT Chief Complaint Patient presents with ??? Weight Loss ??? Blurred Vision going on for couple weeks, has eye appointment tomorrow Pt is a 72 y.o. male who presents for acute visit with concerns about weight loss. He states that at home he weighed himself at 198, and recalls that a couple of months ago he was above 210. He is also noted that his pants have become baggy and he has had to change his belt size. He denies any other specific new symptom is a mild headache which localizes to being behind his left eye and is associated with blurry vision. He has an appointment to see ophthalmology tomorrow for this. He does admitto increased stress he thinks his appetite has remained good and he denies any nausea abdominal pain or changes in his stools. He did have an episode of abdominal pain associated with constipation this past fall. At that time he had a CT abdomen and pelvis which was unremarkable. He has subsequently had An EGD which showed nonbleeding erosions which they thought might be related to aspirin or NSAID use. He also was recently seen by urology for lower urinary tract symptoms. This is been associated with a elevated PSA although biopsy done in 2016 was negative for prostate cancer. He does not feel that these symptoms have worsened. He does admit to increased stress at home, however he does notfeel that that has been affecting his appetite at all. He denies any new chest pain, cough or shortness of breath. He denies any muscle or joint aches and no fevers chills or sweats. He does have occasional dizziness when he goes from a position bending over to standing up. He is trying to drink a good amount of fluids. ROS: as above Current Outpatient Prescriptions on File Prior to Visit Medication Sig Dispense Refill ??? MALCOLM EXTRACT ORAL Take by mouth. ??? acetaminophen (TYLENOL ARTHRITIS PAIN) 650 mg Tablet Sustained Release Take 650 mg by mouth every 8 hours as needed for Pain. Do not exceed 6 tabs in 24 hours ??? aspirin 81 mg Tablet, Delayed Release (E.C.) Take 81 mg by mouth daily. ??? ibuprofen (ADVIL) 200 mg tablet Take 400 mg by mouth every 6 hours as needed. ??? ALPRAZolam (XANAX) 0.25 mg tablet Take 0.25 mg by mouth 3 times daily as needed. ??? multivitamin (THERAGRAN) tablet Take 1 tablet by mouth daily. ??? Saw [place] 500 mg capsule Take 500 mg by mouth daily. No current facility-administered medications on file prior to visit. Patient Active Problem List Diagnosis Code [...] G89.29 ??? 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 Has had recent stressors at home. Patient reported measures: Pain:7 Physical Health:Good Fall: PHQ-9 QUESTIONNAIRE SCORE ONLY (AMB) 11/22/2016 PHQ - 9 Score (Clinic) 6 (Mild Depression) Some recent data might be hidden Physical Exam: Vitals: 12/24/17 1609 BP: 97/60 Pulse: 77 Temp: 36.7 ??C (98.1 ??F) TempSrc: Oral SpO2: 99% Weight: 91.8 kg (202 lb 6.4 oz) Height: 178.1 cm (5' 10.1) General - No acute distress. Affect slightly flat ENT - Mouth moist without lesions. Eyes- EOMI. Not jaundiced. Noninjected Neck - No lymphadenopathy. No thyromegaly Lungs - Clear to auscultation. Heart - RRR, S1,S2, no audible murmur, gallop or rub. Abdomen/GI - Soft, nontender, normal active bowel sounds, neg hsm or masses. Extremities - No edema. Pulses intact. Assessment and Plan: Ken was seen today for weight loss and blurred vision. From our scales it looks like he has lost 10 pounds since last April, with a weight loss of about 3 pounds since his last visit in August. We discussed the possible etiologies. His history and exam is nonfocal, except for the new left eye blurriness and dull headache. These symptoms could be related to a temporal arteritis, however a subacute weight loss is unusual for this. We did discuss that one possibility was his anxiety and depression. I told him that this was a diagnosis of exclusion, however, so today we will collect labs as documented below. I also spoke briefly to the patient about the use of a anti-depressant medication such as an SSRI, which would perhaps decrease reliance on nightly benzodiazepine. Diagnoses and all orders for this visit: Weight loss - POCT glycated hemoglobin, total (HA1C); Future - TSH; Future - CBC (with Diff); Future - Comprehensive metabolic panel (non-fasting); Future - TSH - CBC (with Diff) - Comprehensive metabolic panel (non-fasting) - Hemogram - Differential, Automated - POCT glycated hemoglobin, total (HA1C) Blurred vision, bilateral - POCT glycated hemoglobin, total (HA1C); Future - POCT glycated hemoglobin, total (HA1C) Other specified abnormal findings of blood chemistry - POCT glycated hemoglobin, total (HA1C); Future - POCT glycated hemoglobin, total (HA1C) Chronic nonintractable headache, unspecified headache type - CRP, acute inflammation; Future - Sedimentation rate; Future - CRP, acute inflammation - Sedimentation rate documented in this encounter Miscellaneous Notes * Addendum Note - Mirlande New MD - 12/26/2017 12:36 PM EDTAddended by: MIRLANDE NEW on: 12/26/2017 12:36 PM Modules accepted: Orders documented in this encounter Plan of Treatment Upcoming Encounters Date Type Department Care Team (Late st Contact Info) Description 12/15/2024 11:30 AM EDT Office [place] [address] Charline Ziegler MD [facility] [place] [address] documented as of this encounter Procedures Procedure Name Priority Date/Time Associated Diagnosis Comments CRP, ACUTE INFLAMMATION Routine 12/24/2017 5:07 PM EDT Chronic nonintractable headache, unspecified headache type HEMOGRAM Routine 12/24/2017 5:07 PM EDT Weight loss DIFFERENTIAL, AUTOMATED Routine 12/24/2017 5:07 PM EDT Weight loss SEDIMENTATION RATE Routine 12/24/2017 5: 07 PM EDT Chronic nonintractable headache, unspecified headache type CBC (WITH DIFF) Routine 12/24/2017 5:07 PM EDT Weight loss T3 TOTAL Routine 12/24/2017 5:07 PM EDT TSH Routine 12/24/2017 5:07 PM EDT Weight loss T4, FREE Routine 12/24/2017 5:07 PM EDT COMPREHENSIVE METABOLIC PANEL Routine 12/24/2017 5:07 PM EDT Weight loss POCT GLYCATED HEMOGLOBIN, TOTAL (HA1C) Routine 12/24/2017 4:20 PM EDT Other specified abnormal findings of blood chemistry Weight loss Blurred vision, bilateral documented in this encounter Results * T3 Total (12/24/2017 5:07 PM EDT) [facility] T3 Total 125 75 - 170 ng/dL [facility] Blood specimen (specimen) Venous Draw / Unknown 12/24/2017 5:07 PM EDT 12/25/2017 9:45 AM EDT Narrative Resulting Agency Comment Spec In Lab Mirlande New MD CHEMISTRY ORDERABLES Performing Organization Address City/[facility]/ZIP Co de Phone Number [facility] [place] [address] * T4, free (12/24/2017 5:07 PM EDT) [facility] Free T4 1.50 0.93 - 1.70 ng/dL [facility] Blood specimen (specimen) Venous Draw / Unknown 12/24/2017 5:07 PM EDT 12/24/2017 6:28 PM EDT Narrative Resulting Agency Comment Spec In Lab Mirlande New MD CHEMISTRY ORDERABLES [facility] [place] [address] * Differential, Automated (12/24/2017 5:07 PM EDT) [facility] Neutrophil % 49.1 % [facility] Neutrophil Absolute 3.25 1.70 - 6.10 x10(3)/[facility] LABORAT[facility] Lymph % 40.0 % [facility] Lymphocytes Abs 2.6 0.9 - 3.2 x10(3)/[facility] Monocyte % 8.0 % [facility] Monocyte Abs 0.5 0.3 - 0.9 x10(3)/[facility] Eos % 2.1 % [facility] Eosinophils Abs 0.1 0.0 - 0.4 x10(3)/[facility] Basophil % 0.6 % [facility] Baso Absolute 0.0 0.0 - 0.1 x10(3)/[facility] Immature Gran % 0.20 % [facility] Comment: Immature granulocytes(IG's)percentage and absolute count will include metamyelocytes, myelocytes, and promyelocytes. Blood smears from CBCs yielding IG's will be scanned manually for concordance. If this scan disagrees with the automated IG or if promyelocytes are noted, a manual differential will be performed. Immature Gran Absolute 0.01 0.00 - 0.04 x10(3)/[facility] Blood specimen (specimen) 12/24/2017 5:07 PM EDT 12/24/2017 6:21 PM EDT Narrative Resulting Agency Comment Spec In Lab Mirlande New MD HEMATOLOGY ORDERABLE S [facility] [place] [address] * Hemogram (12/24/2017 5:07 PM EDT) White Blood Cell 6.6 4.0 - 9.5 x10(3)/[facility] Red Blood Cell 4.75 4.58 - 5.54 x10(6)/[facility] Hemoglobin 14.3 13.7 - 16.5 gm/dL [facility] Hematocrit 41.5 40.5 - 48.5 % [facility] Mean Cell Volume 87.4 82.9 - 93.1 fL [facility] Mean Cell Hemoglobin 30.1 27.5 - 32.1 pg [facility] Mean Cell Hemoglobin Concentration 34.5 32.0 - 35.7 gm/dL [facility] Platelet 190 145 - 357 x10(3)/[facility] RDW Standard Deviation 41.9 36.0 - 45.0 fL [facility] RDW coefficient of variation 13.0 11.4 - 13.8 % [facility] Mean Platelet Volume 10.3 7.6 - 12.9 fL [facility] NRBC% auto 0.0 % [facility] NRBC Absolute 0.000 0.000 - 0.000 x10(3)/[facility] Blood specimen (specimen) 12/24/2017 5:07 PM EDT 12/24/2017 6:21 PM EDT Narrative Resulting Agency Comment Spec In Lab Mirlande New MD HEMATOLOGY ORDERABLE S Performing Organization Address [facility] Co de Phone Number [facility] [place] [address] * Sedimentation rate (12/24/2017 5:07 PM EDT) Sedimentation Rate Automated 5 0 - 15 mm/hr [facility] Blood specimen (specimen) 12/24/2017 5:07 PM EDT 12/24/2017 6:21 PM EDT Narrative Resulting Agency Comment Spec In Lab Mirlande New MD HEMATOLOGY ORDERABLE S Performing Organization Address City/[facility]/ZIP Co de Phone Number [facility] [place] [address] * CRP, acute inflammation (12/24/2017 5:07 PM EDT) C-Reactive Protein 1.9 <=4.9 mg/L [facility] Blood specimen (specimen) 12/24/2017 5:07 PM EDT 12/24/2017 6:20 PM EDT Narrative Resulting Agency Comment Spec In Lab Mirlande New MD CHEMISTRY ORDERABLES [facility] [place] [address] * Comprehensive metabolic panel (non-fasting) (12/24/2017 5:07 PM EDT) Glucose 114 65 - 199 mg/dL [facility] Comment:Diabetes: >=200 mg/d L plus symptoms Blood Urea Nitrogen 13 10 - 20 mg/dL [facility] Creatinine 0.93 0.80 - 1.50 mg/dL [facility] Sodium 139 135 - 145 mmol/L [facility] Potassium 4.2 3.5 - 5.0 mmol/L [facility] Comment: Please note: ??Patients with WBC >100,000 may have falsely elevated Potassium levels. ??For accurate Potassium quantification in these patients send serum separator tube (gold top) for subsequent determinations. ??Contact the Clinical Chemistry Laboratory if there are any questions. Chloride 100 98 - 107 mmol/L [facility] Carbon Dioxide 25 22 - 31 mmol/L [facility] Anion Gap 14 5 - 15 mmol/L [facility] Calcium 9.2 8.5 - 10.5 mg/dL [facility] Protein, Total 6.8 6.1 - 8.0 gm/dL [facility] Albumin 4.0 3.2 - 5.2 gm/dL [facility] Aspartate Aminotransferase 15 0 - 39 unit/L [facility] Alanine Aminotransferase 13 0 - 55 unit/L [facility] Alkaline Phosphatase 61 40 - 120 unit/L [facility] Bilirubin, Total 0.5 0.2 - 1.3 mg/dL [facility] Est Glomerular Filtration Rate >60 >=60 [facility] Comment: The reported eGFR should be multiplied by 1.2 for patients. The MDRD is not an appropriate measure of renal function for patients with body mass extremes or in patients with acute kidney failure. http://[employer].com/DHnkdep http://[employer].Collect[employer] IP/DHMCnkf Blood specimen (specimen) 12/24/2017 5:07 PM EDT 12/24/2017 6:20 PM EDT Narrative Resulting Agency Comment Spec In Lab Mirlande New MD CHEMISTRY ORDERABLES Performing Organization Address [facility]/ZIP Co de Phone Number [facility] [place] [address] * (ABNORMAL) TSH (12/24/2017 5:07 PM EDT) Thyroid Stimulating Hormone 0.03(L) 0.27 - 4.20 mlU/ML [facility] Blood specimen (specimen) 12/24/2017 5:07 PM EDT 12/24/2017 6:20 PM EDT Narrative Resulting Agency Comment Spec In Lab Mirlande New MD CHEMISTRY ORDERABLES Performing Organization Address [facility] Co de Phone Number [facility] [place] [address] * POCT glycated hemoglobin, total (HA1C) (12/24/2017 4:20 PM EDT) Hemoglobin A1C, POC 5.2 4.3 - 5.6 % 12/24/2017 4:20 PM EDT Milrande New MD POINT OF CARE TEST O RDERABLES documented in this encounter Visit Diagnoses Diagnosis Weight loss Loss of weight Blurred vision, bilateral Other specified visual disturbances Other specified abnormal findings of blood chemistry Chronic nonintractable headache, unspecified headache type Low TSH level Nonspecific abnormal results of thyroid function study documented in this encounter Care Teams Sociology Teacher Relationship Specialty Start Date End Date Reji Adams MD [facility] GENER[place] [address] PCP - General General Internal Medicine 07/13/15 documented as of this encounter
--- OUTSIDE RECORDS SUMMARY | 2024-07-09 11:14 | XMS_ITS | Encounter Summary ---
Author Organization [facility] [place] [address] Care Team Providers Care Epic Ambulatory Analyst Name Role Phone Reji Adams MD Primary Care Provider [phone] Encounter Details Date Type Department Care Team (Late st Contact Info) Description 10/20/2017 Orders [place] [phone] [facility] [place] [address] Hypogonadism in male Social History Tobacco Use [...] 11:30 AM EDT Office Visit [place] [address] [facility] [place] [address] documented as of this encounter Results * Testosterone, total and free (10/23/2017 1:54 PM EDT) Testo Total 493 250 - 1100 ng/dL [facility] Comment: Men with clinically significant hypogonadal symptoms and testosterone values repeatedly in the range of the 200-300 ng/dL or less, may benefit from testosterone treatment after adequate risk and benefits counseling. For more information on this test, go to http://education.[employer]/faq/ TotalTestosteroneLCMSMS This test was developed and its analytical performance characteristics have been determined by [employer] [place]. It has not been cleared or approved by the U.S. Food and Drug Administration. This assay has been validated pursuant to the CLIA regulations and is used for clinical purposes. Testo Free (NOVEMBER) 47.8 30.0 - 135.0 pg/mL [facility] Comment: This test was developed and its analytical performance characteristics have been determined by [employer] [place], [place]. It has not been cleared or approved by the U.S. Food and Drug Administration. This assay has been validated pursuant to the CLIA regulations and is used for clinical purposes. Test Performed by [employer], [employer] [place], [address] [place] [address] Law Duke M.D., Ph.D., Director of Laboratories , CLIA [id number] Blood specimen (specimen) 10/23/2017 1:54 PM EDT 10/23/2017 4:47 PM EDT Narrative Resulting Agency Comment Spec In Lab Tobias Mcginnis MD LAB SEND OUT ORDER DALILA [facility] [place] [address] documented in this encounter Visit Diagnoses Diagnosis Hypogonadism in male documented in this encounter Care Teams Epic Ambulatory Analyst Relationship Specialty Start Date End Date Reji Adams MD [facility] GENERAL [place] [address] PCP - General General Internal Medicine 07/13/15 documented as of this encounter
--- OUTSIDE RECORDS SUMMARY | 2024-07-09 11:14 | XMS_ITS | Encounter Summary ---
Author Organization [facility] [place] [address] Care Team Providers Care Rn Women Services Name Role Phone Reji Adams MD Primary Care Provider [phone] Reason for Visit * Reason Onset Date Comments Other 07/18/2017 Fecal sample Encounter Details Date Type Department Care Team (Late st Contact Info) Description 07/18/2017 Telephone Internal Medicine at [address] [address] Antonette Fong Other (Fecal sample) Social History Tobacco Use Types Packs/Day Years [...] Telephone Encounter - Amrita Rodriguez RN - 07/18/2017 12:17 PM EST Patient has brought specimen to 3[facility]. * Telephone Encounter - Antonette Fong - 07/18/2017 9:31 AM EST Message: Patient is calling to speak to a nurse on where to bring his stool sample. Please call. Caller and relationship (if other than patient-full name): Self Best time to call back: any Ok to leave a message: [yes] Ok to send my- message: [no] Offered Appointment: no MA/Nurse contacted via: Message: yes Call: attempted Pager: no documented in this encounter Plan of Treatment Upcoming Encounters Date Type Department Care Team (Late st Contact Info) Description 12/15/2024 11:30 AM EDT Office [place] [address] Charline Ziegler MD [facility] [place] [address] documented as of this encounter Visit Diagnoses Not on filedocumented in this encounter Care Teams Rn Women Services Relationship Specialty Start Date End Date Reji Adams MD [facility] GENER[place] [address] PCP - General General Internal Medicine 07/13/15 documented as of this encounter
--- OUTSIDE RECORDS SUMMARY | 2024-07-09 11:14 | XMS_ITS | Encounter Summary ---
Author Organization [facility] Address [facility] [place] [address] Care Team Providers Care Chief Contract Officer Name Role Phone Reji Adams MD Primary Care Provider [phone] Encounter Details Date Type Department Care Team (Latest Contact Info) Description 08/25/2017 1:41 PM EST - 08/25/2017 11:59 PM [facility] Hospital [place] [address] [facility] GENERAL [place] [address] RUQ pain; Epigastric pain Discharge Disposition: Home Social History [...] 3 times daily as needed. 03/19/2018 Saw Taylor 500 mg capsule Take 500 mg by mouth daily. 03/14/2020 documented as of this encounter Plan of Treatment Upcoming Encounters Date Type Department Care Team (Late st Contact Info) Description 12/15/2024 11:30 AM EDT Office Visit Gastroenterology at [facility] [place] [address] Charline Ziegler MD [facility] [place] [address] documented as of this encounter Procedures Procedure Name Priority Date/Time Associated Diagnosis Comments US ABDOMEN LIMITED Routine 08/25/2017 1: 59 PM EST RUQ pain Epigastric pain documented [...] 02:08 pm) PATIENT INFO: ID #: ? [id number] ?: ??[birth year] (71 yrs) Name: ? KEN COLE ? Visit Date: 08/25/2017 01:57 pm PERFORMED BY: Performed By: ? Alma Leblanc RDMS Attending: ?Abdullahi CHAVEZ, Bernie Ford Referred By: ?NISHA ECHOLS Location: ? [place] SERVICE(S) PROVIDED: ??UABDLIM - Abdominal Limited Survey Single ? [id number] ??Organ or Quadrant - [id number] INDICATIONS: ??Pain in epigastric area and RUQ [...] 08/25/2017 02:08 pm) PATIENT INFO: ID #: [id number] : [birth year] (71 yrs) Name: KEN COLE Visit Date: 08/25/2017 01:57 pm PERFORMED BY: Performed By: Alma Leblanc RDMS Attending: Bernie Fernando MD Referred By: NISHA ECHOLS Location: [place] SERVICE(S) PROVIDED: UABDLIM - Abdominal Limited Survey Single [id number] Organ or Quadrant - [id number] INDICATIONS: Pain in epigastric area and RUQ [...] Electronically Signed Final Report 08/25/2017 02:08 pm Nisha Echols MD IMG US GEN ORDERABLE S documented in this encounter Visit Diagnoses Diagnosis RUQ pain Abdominal pain, right upper quadrant Epigastric pain Abdominal pain, epigastric documented in this encounter Care Teams Chief Contract Officer Relationship Specialty Start Date End Date Reji Adams MD [facility] [place] [address] PCP - General General Internal Medicine 07/13/15 documented as of this encounter
--- OUTSIDE RECORDS SUMMARY | 2024-07-09 11:14 | XMS_ITS | Encounter Summary ---
Author Organization [facility] Address [facility] [place] [address] Care Team Providers Care Director Of National Sales Name Role Phone Reji Adams MD Primary Care Provider [phone] Encounter Details Date Type Department Care Team (Late st Contact Info) Description 09/02/2017 1:45 PM EST - 09/02/2017 2:15 PM EST Surgery [place] [address] Rahul Escobar MD [facility] [place] [address] EGD WITH BIOPSY (WRVU 2.39) Social History Tobacco Use Types Packs/Day Years [...] Reading Time Taken Comments Blood Pressure 112/71 09/02/2017 2:15 PM EST Pulse 53 09/02/2017 2:15 PM EST Temperature - - Respiratory Rate 7 09/02/2017 2:15 PM EST Oxygen Saturation 99% 09/02/2017 2:15 PM EST Inhaled Oxygen Concentration - - [...] get better as expected. Friday-Friday Same Day [facility] [phone] 7a-8p Otherwise contact [phone] and ask to speak to the registered nurse fetal route contractor Follow-up care is a enrique part of [...] 3 times daily as needed. 03/19/2018 Saw [place] 500 mg capsule Take 500 mg by [...] AM EDT Office Visit [place] [address] Charline Ziegler MD [facility] [place] [address] documented as of this encounter Procedures Procedure [...] Report (09/02/2017 2:24 PM EST) Final Diagnosis [id number] ? Location: 4T; EA09; A The signing pathologist has (i) examined the relevant preparation(s) for the specimen(s) and (ii) rendered or confirmed the diagnosis(es). . ?Surgical Pathology DIAGNOSIS Gastric, ??biopsy: Gastric fundic gland and junctional mucosa within normal limits. No H. pylori-like microorganism is seen. Electronically signed by: ??John Parish MD Verified: ??09/05/2017 ?Pathologist Performed at: ??-[facility] Dept. of Pathology, [place], [place] CLINICAL INFORMATION Specimen Submitted: A - Gastric bx 's Clinical History: Chronic GERD, patchy erythema in antrum Clinical Diagnosis: Same SPECIMEN PROCESSING A - Labeled/Fixative: Gastric biopsies, formalin. Quantity/Size: Six, 0.2-0.4 cm. Tissue Description: ??Soft, davila-pink tissue ??. Sections/Processi ng: (T2) ??ejr 09/05/2017 3:00 PM EST [facility] GI Biopsy 09/02/2017 2:24 PM EST 09/02/2017 2:24 PM EST Rahul Escobar MD PATHOLOGY/CYTOLOG Y ORDERABLES [facility] [place] [address] * Specimen to Pathology (09/02/2017 2:24 PM EST) AP Specimen 09/02/2017 2:24 PM EST 09/02/2017 2:34 PM EST Narrative [facility] - 09/02/2017 2:34 PM EST Specimen requisition ordered. ??Separate Pathology report to follow Resulting Agency Comment Spec In Lab Rahul Escobar MD PATHOLOGY/CYTOLOG Y ORDERABLES Performing Organization Address City/State/[facility] Co de Phone Number [facility] [place] [address] * UPPER GI ENDOSCOPY (09/02/2017 1:50 PM EST) UPPER GI ENDOSCOPY [facility] Endoscopy Procedure Date: 09/02/2017 1:50 PM ? Patient Name: Ken Mckeon ? Date of : 1945 ? Age: 71 ? Order #: [id number] ? Instrument Name: [id number] ? Procedure: ? Upper GI endoscopy Indications: ? Screening for Ventura's esophagus in ? patient at risk for this condition, ? Follow-up of gastro-esophageal reflux ? disease Patient Profile: ? This is a 71 year old male. Refer to ? note in patient chart for ? documentation of history and physical. Providers: ? Rahul Escobar MD, Seth Myrick ? AGNIESZKA Ortega, Amanda Diaz MD: ?Reji Adams MD Requesting Provider: Amanda Burroughs [...] mcg/mL multi-dose injection ONCE PRN, Starting on Fri09/02/17 at 1410, Until Fri09/02/17 at 1713, Intra-Operative (Intra-Procedure), Routine Given 09/02/2017 2:20 PM EST 25 mcg Right Arm Given 09/02/2017 2:17 PM EST 25 mcg Ri ght Arm Given 09/02/2017 2:14 PM EST 50 mcg Ri ght Arm midazolam (PF) (VERSED) 1 mg/mL multi-dose injection ONCE PRN, Starting on Fri09/02/17 at 1410, Until Fri09/02/17 at 1713, Intra-Operative (Intra-Procedure), Routine Given 09/02/2017 2:20 PM EST 0.5 mg Right Arm Given 09/02/2017 2:17 PM EST 0.5 mg Ri ght Arm Given 09/02/2017 2:14 PM EST 1 mg Ri ght Arm documented in this encounter Active and Recently Administered Medications Times are shown in EST. PRN Medication Order 08/31/2017 09/01/2017 09/02/2017 fentaNYL 50 mcg/mL multi-dose injection (CANCELED) ONCE PRN, Starting on Fri09/02/17 at 1410, Until Fri09/02/17 at 1713, Intra-Operative (Intra-Procedure), Routine 1410 (Given - Provid er: Seth Ortega RN)1414 (Given - Provider: Seth Ortega RN)1417 (Given - Provider: Seth Ortega RN)1420 (Given - Provider: Seth Ortega RN) midazolam (PF) (VERSED) 1 mg/mL multi-dose injection (CANCELED) ONCE PRN, Starting on Fri09/02/17 at 1410, Until Fri09/02/17 at 1713, Intra-Operative (Intra-Procedure), Routine 1410 (Given - Provid er: Seth Ortega RN)1411 (Given - Provider: Seth Ortega RN)1414 (Given - Provider: Seth Ortega RN)1417 (Given - Provider: Seth Ortega RN)1420 (Given - Provider: Seth Ortega RN) documented in this encounter Care Teams Director Of National Sales Relationship Specialty Start Date End Date Reji Adams MD [facility] [place] [address] PCP - General General Internal Medicine 07/13/15 documented as of this encounter
--- OUTSIDE RECORDS SUMMARY | 2024-07-09 11:14 | XMS_ITS | Encounter Summary ---
Author Organization [facility] [place] [address] Care Team Providers Care Physical Instructor Name Role Phone Reji Adams MD Primary Care Provider [phone] Encounter Details Date Type Department Care Team (Late st Contact Info) Description 02/17/2018 Orders Only Internal Medicine at [address] [address] Reji Adams MD [facility] [place] [address] Abnormal thyroid blood test; Acute thyroiditis Social History Tobacco Use Types Packs/Day [...] 11:30 AM EDT Office [place] [address] Charline Ziegler MD [facility] [place] [address] documented as of this encounter Results * T4, free (03/13/2018 11:49 AM EDT) Free T4 1.16 0.93 - 1.70 ng/dL [facility] Blood specimen (specimen) 03/13/2018 11:49 AM EDT 03/13/2018 11:52 AM EDT Narrative Resulting Agency Comment Spec In Lab Reji Adams MD CHEMISTRY ORDERABLES Performing Organization Address City/[facility] Co de Phone Number [facility] [place] [address] * TSH (03/13/2018 11:49 AM EDT) Thyroid Stimulating Hormone 2.47 0.27 - 4.20 mlU/ML [facility] Blood specimen (specimen) 03/13/2018 11:49 AM EDT 03/13/2018 11:52 AM EDT Narrative Resulting Agency Comment Spec In Lab Reji Adams MD CHEMISTRY ORDERABLES Performing Organization Address [facility] Co de Phone Number [facility] [place] [address] documented in this encounter Visit Diagnoses Diagnosis Abnormal thyroid blood test Nonspecific abnormal results of thyroid function study Acute thyroiditis Acute thyroiditis documented in this encounter Care Teams Physical Instructor Relationship Specialty Start Date End Date Reji Adams MD [facility] [place] [address] PCP - General General Internal Medicine 07/13/15 documented as of this encounter
--- OUTSIDE RECORDS SUMMARY | 2024-07-09 11:14 | XMS_ITS | Encounter Summary ---
Author Organization [facility] Address [facility] [place] [address] Care Team Providers Care Business Applications Analyst Name Role Phone Reji Adams MD Primary Care Provider [phone] Reason for Visit * Reason Onset Date Comments Questions 03/31/2018 Encounter Details Date Type Department Care Team (Late st Contact Info) Description 03/31/2018 Telephone [place] [address] Bebeto Lomeli MD [facility] [place] [address] Questions Social History Tobacco Use Types Packs/Day [...] encounter Miscellaneous Notes * Telephone Encounter - Josey Hill RN - 03/31/2018 2:32 PM EDT Subjective: Telephone call to patient. Explained that we cannot provide a surgery order to Dr. Daniel. Plan: Suggested patient contact Dr. Daniel to see if he is willing to do his trigger finger surgery. Advised if patient would like surgery here with Dr. Lomeli he should let us know. He agrees. Patient/Responsible republican voices an understanding of advice? Yes Patient/Responsible republican intends to comply with action/disposition: Yes * Telephone Encounter - Ivon Dumont - 03/31/2018 2:13 PM EDT Patient called and is looking for a surgical order from Dr. Lomeli to Dr. Daniel for his left ring trigger finger. Patient states he is scheduled for surgery with Dr. Daniel already for his shoulder, and would like the referral sent to have both shoulder/trigger finger done during the same surgery. If any questions, please contact Ken at: [phone] documented in this encounter Plan of Treatment Upcoming Encounters Date Type Department Care Team (Late st Contact Info) Description 12/15/2024 11:30 AM EDT Office Visit [place] [address] Charline Ziegler MD [facility] [place] [address] documented as of this encounter Visit Diagnoses Not on filedocumented in this encounter Care Teams Business Applications Analyst Relationship Specialty Start Date End Date Reji Adams MD [facility] [place] [address] PCP - General General Internal Medicine 07/13/15 documented as of this encounter
--- OUTSIDE RECORDS SUMMARY | 2024-07-09 11:14 | XMS_ITS | Encounter Summary ---
Author Organization [facility] Address [facility] [place] [address] Care Team Providers Care Eating Disorder Specialist Name Role Phone Reji Adams MD Primary Care Provider [phone] Reason for Visit * Reason Onset Date Comments Pre Procedure Call 04/13/2018 Encounter Details Date Type Department Care Team (Late st Contact Info) Description 04/13/2018 [place] [address] Bebeto Lomeli MD [facility] [place] [address] Pre Procedure Call Social History Tobacco Use [...] encounter Miscellaneous Notes * Telephone Encounter - Violet Mackenzie RN - 04/13/2018 10:29 AM EDT Patient has called OR schedulers and declines surgery at this time * Telephone Encounter - Dianelys Guerrero - 04/13/2018 9:47 AM EDT Ken calls in today stating that he would like to go forward with surgery for his trigger finger. I let him know that I would update Dr. Lomeli and his team to place the orders, then our surgicalscheduling team will reach out to him. I gave him their direct line to follow up on the request. Ken verbalized understanding of instructions and voiced no other questions or concerns at this time. documented in this encounter Plan of Treatment Upcoming Encounters Date Type Department Care Team (Late st Contact Info) Description 12/15/2024 11:30 AM EDT Office [place] [address] Charline Ziegler MD [facility] [place] [address] documented as of this encounter Visit Diagnoses Not on filedocumented in this encounter Care Teams Eating Disorder Specialist Relationship Specialty Start Date End Date Reji Adams MD [facility] GENER[place] [address] PCP - General General Internal Medicine 07/13/15 documented as of this encounter
--- OUTSIDE RECORDS SUMMARY | 2024-07-09 11:14 | XMS_ITS | Encounter Summary ---
Author Organization [facility] [place] [address] Care Team Providers Care Supervisor Electronics Inspection Name Role Phone Reji Adams MD Primary Care Provider [phone] Reason for Referral * Diagnostic Test (Routine) - Closed Specialty Diagnoses / Procedures Referred By Contac t Referred To Contact Radiology Diagnoses Left knee pain, unspecified chronicity Procedures MRI Knee wo Contrast Left (Generic) Presley Mckee MD [address] [address] [place] [address] Referral ID Status Reason Start Date Expiration Date V isits Requested Visits Authorized [id number] Closed Specialty Service Requested 07/15/2017 07/15/2018 1 1 Reason for Visit * Diagnostic Test (Routine) - Closed Specialty Diagnoses / Procedures Referred By Contac t Referred To Contact Radiology Diagnoses Left knee pain, unspecified chronicity Procedures MRI Knee wo Contrast Left (Generic) Presley Mckee MD [address] [place] [address] [place] [address] Referral ID Status Reason Start Date Expiration Date V isits Requested Visits Authorized [id number] Closed Specialty Service Requested 07/15/2017 07/15/2018 1 1 Encounter Details Date Type Department Care Team (Latest Contact Info) Description 08/11/2017 1:16 PM EST - 08/11/2017 11:59 PM EST Hospital [place] [address] [place] [address] Left knee pain, unspecified chronicity Discharge Disposition: Home Social History [...] 3 times daily as needed. 03/19/2018 Saw [place] 500 mg capsule Take 500 mg by mouth daily. 03/14/2020 documented as of this encounter Plan of Treatment Upcoming Encounters Date Type Department Care Team (Late st Contact Info) Description 12/15/2024 11:30 AM EDT Office [place] [address] Charline Ziegler MD [facility] [place] [address] documented as of this encounter Procedures Procedure Name Priority Date/Time Associated Diagnosis Comments MRI KNEE LEFT WO CONTRAST Routine 08/11/2017 2:38 PM EST Left knee pain, unspecified chronicity documented in this encounter Results * MRI Knee wo Contrast Left (Generic) (08/11/2017 2:38 PM EST) Anatomical Region Laterality Modality Knee Left Magnetic Resonan ce Impressions 08/11/2017 3:05 PM EST 1. ??Partial tear of the lateral posterior meniscal root. 2. 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 3. ??No ligament interruption. 4. ??Borderline patella nesha. Narrative 08/11/2017 3:05 PM EST EXAMINATION: MRI KNEE WO CONTRAST LEFT (GENERIC) CLINICAL HISTORY: ? possible meniscal tear COMPARISON: None TECHNIQUE: Routine noncontrast MRI of the Left knee was performed. FINDINGS: FLUID: Trace fluid in knee joint. No popliteal cyst. MEDIAL COMPARTMENT: Slightly frayed free border of the body of medial meniscus without tai tear. There is deep fissuring of the medial tibial plateau articular cartilage, series 4-11. LATERAL COMPARTMENT: Partial tear of the of the posterior meniscal root. There is thinning and deep fissuring of the lateral tibial plateau articular cartilage. PATELLOFEMORAL COMPARTMENT: Full-thickness cartilage defect in the median ridge, part of the lateral patellar facet and most of the medial patellar facet accompanied by small foci of subchondral marrow signal alteration and subchondral cystic change. No patellar subluxation. 1. ??The TT-TG measurement =7 mm, normal. 2. ??Trochlea depth = 7 mm, normal 3. ??Pelvis patellar tendon/patellar ratio =1.3, consider borderline patella alter. 4. ??Lateral trochlear inclination= 14 degrees, normal. Prominent enthesophytes at the upper pole of the patella at quadriceps tendon insertion. CRUCIATE LIGAMENTS: Slightly thick and heterogeneous ACL represents mucoid degeneration. Similar mucoid degenerative change with increased T2 signal of the proximal PCL and no ligament interruption. COLLATERAL LIGAMENTS: Normal collateral ligaments. TENDONS: Normal tendons. BONES: Slightly heterogeneous marrow signal in the distal femoral metaphysis representing residual hematopoietic deposits. No fracture. SOFT TISSUES: No soft tissue mass. Procedure Note Liberty Diaz MD - 08/11/2017 EXAMINATION: MRI KNEE WO CONTRAST LEFT (GENERIC) CLINICAL HISTORY: ? possible meniscal tear COMPARISON: None TECHNIQUE: Routine noncontrast MRI of the Left knee was performed. FINDINGS: FLUID: Trace fluid in knee joint. No popliteal cyst. MEDIAL COMPARTMENT: Slightly frayed free border of the body of medial meniscus without franktear. There is deep fissuring of the medial tibial plateau articular cartilage,series 4-11. LATERAL COMPARTMENT: Partial tear of the of the posterior meniscal root.There is thinning and deep fissuring of the lateral tibial plateau articular cartilage. PATELLOFEMORAL COMPARTMENT: Full-thickness cartilage defect in the medianridge, part of the lateral patellar facet and most of the medial patellar facet accompanied by small foci of subchondral marrow signal alteration and subchondral cystic change. No patellar subluxation. 1. The TT-TG measurement =7 mm, normal. 2. Trochlea depth = 7 mm, normal 3. Pelvis patellar tendon/patellar ratio =1.3, consider borderlinepatella alter. 4. Lateral trochlear inclination= 14 degrees, normal. Prominent enthesophytes at the upper pole of the patella at quadricepstendon insertion. CRUCIATE LIGAMENTS: Slightly thick and heterogeneous ACL representsmucoid degeneration. Similar mucoid degenerative change with increased T2 signal of theproximal PCL and no ligament interruption. COLLATERAL LIGAMENTS: Normal collateral ligaments. TENDONS: Normal tendons. BONES: Slightly heterogeneous marrow signal in the distal femoralmetaphysis representing residual hematopoietic deposits. No fracture. SOFT TISSUES: No soft tissue mass. IMPRESSION 1. Partial tear of the lateral posterior meniscal root. 2. 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 3. No ligament interruption. 4. Borderline patella nesha. Authorizing Provider Result Kasey Mckee MD [facility] ORDERABLES documented in this encounter Visit Diagnoses Diagnosis Left knee pain, unspecified chronicity documented in this encounter Care Teams Supervisor Electronics Inspection Relationship Specialty Start Date End Date Reji Adams MD [facility] GENERAL [place] [address] PCP - General General Internal Medicine 07/13/15 documented as of this encounter
--- OUTSIDE RECORDS SUMMARY | 2024-07-09 11:15 | XMS_ITS | Encounter Summary ---
[place] [address] Care Team Providers Care Club Waiter/Waitress Name Role Phone Reji Adams MD Primary Care Provider [phone] Reason for Visit * Reason Onset Date Comments Pre Procedure Call 03/24/2017 Encounter Details Date Type Department Care Team (Late st Contact Info) Description 03/24/2017 Telephone Hematology [place] [address] Omaira Antonio RN Pre Procedure Call Social History Tobacco Use Types Packs/Day Years Used Date Smoking Tobacco: Never Smokeless Tobacco: Current Chew Comments:3 cans/ week. Alcohol Use Standard Drinks/Week Comments Yes 0 (1 standard drink = 0.6 oz pur e alcohol) Sex and Gender Information Value Date Recorded Sex Assigned at Choose not to disclose 02/2023 8:26 AM EDT Gender Identity Not on file Sexual Orientation Choose not to disclose 2022 8:26 AM EDT documented as of this encounter Miscellaneous Notes * Telephone Encounter - Omaira Antonio RN - 03/24/2017 8:30 AM EDT Reason for call: PSA clinic appointment on _04/07/17 at 0900___. Scheduled for Bx at this time? Yes Meds/Allergies: Penicillin Anticoagulant medications: (Coumadin, Plavix, ASA, NSAIDS) Yes, ASA will hold and other NSAIDs for 7 days prior to appointment If yes instruct pt to contact PCP [...] added, Vit C,) No If yes and recommended by PCP: check with PCP and follow instructions given for discontinuing and restarting OTC and supplements If yes and pt started: pt to stop supplements for 1 week prior and 1 week after biopsy. Labs: Repeat PSA Free PSA (must be at least 10 days prior to clinic) Most recent PSA result and date 03/13/17, 6.19 Have all labs faxed to Urology office (fax # [phone]) or hand carried the day of the appointment. 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 Will use Fleets enema morning of appointment. Patient Instructions/Information: Patient [...] a FREDI to determine need for biopsy. Patient may park in Parking Garage Registration is at Hem/Onc radiology receptionist on 3rd floor. Questionaires: Has pt filled out: Urinary Function Questionaire? Yes_x__ No___ Elevated PSA Clinic Questionaire? Yes_x__ No___ Patient understands and is able to verbalize back to this nurse the above information. Patient agrees to the POC, knows when and how to call if need arises. documented in this encounter Plan of Treatment Upcoming Encounters Date Type Department Care Team (Late st Contact Info) Description 12/15/2024 11:30 AM EDT Office [place] [address] Charline Ziegler MD [facility] [place] [address] documented as of this encounter Results * US Guided Transrectal Biopsy (04/07/2017 11:03 AM EDT) Anatomical Region Laterality Modality Pelvis Ultrasound 04/07/2017 11:0 3 AM EDT Impressions 04/07/2017 11:28 AM EDT Prostate Summary Transrectal ultrasound was performed. No hypoechoic areas seen Prostate Biopsy Summary Ultrasound guidance was provided for Dr. Riddle of the section of Urology who performed multiple biopsies in the [address] [place] [address] location. ? Jay Tavera MD Electronically Signed Final Report ?? 04/07/2017 11:28 am Narrative 04/07/2017 11:28 AM EDT Male Pelvis ? (Signed Final 04/07/2017 11:28 am) PATIENT INFO: ID #: ? [id number] ?: ??[birth year] (71 yrs) Name: ? KEN COLE ? Visit Date: 04/07/2017 11:03 am PERFORMED BY: Performed By: ? Daniel GRIMM, ??Quita Attending: ?Ayse CHAVEZ, Jay Gay. Referred By: ?LENORE MCGINNIS Location: ? [address] SERVICE(S) PROVIDED: ??UTRBX - Prostate Biopsy - [id number] ?[id number], [id number] INDICATIONS: ??Elevated PSA --------- PROSTATE: --------- Size (cm) ?L: ??3.87 ?AP: ??3.23 ?TV: ??5.25 Vol (ml): ?34.4 Comment: ?No hypoechoic areas seen ADDITIONAL FINDINGS: 6 biopsies obtained from the right. 6 biopsies obtained from the left Transducer #: 26 Procedure Note Jay Tavera MD - 04/07/2017 Male Pelvis (Signed Final 04/07/2017 11:28 am) PATIENT INFO: ID #: [id number] : [birth year] (71 yrs) Name: KEN COLE Visit Date: 04/07/2017 11:03 am PERFORMED BY: Performed By: Quita Sanchez RDMS Attending: Jay Tavera MD Referred By: LENORE MCGINNIS Location: [address] SERVICE(S) PROVIDED: UTRBX - Prostate Biopsy - [id number] INDICATIONS: Elevated PSA --------- PROSTATE: --------- Size (cm) L: 3.87 AP: 3.23 TV: 5.25 Vol (ml): 34.4 Comment: No hypoechoic areas seen ADDITIONAL FINDINGS: 6 biopsies obtained from the right. 6 biopsies obtained from the left Transducer #: 26 IMPRESSION Prostate Summary Transrectal ultrasound was performed. No hypoechoic areas seen Prostate Biopsy Summary Ultrasound guidance was provided for Dr. Riddle of the section of Urology who performed multiple biopsies in the [address] [place] [address] location. Jay Tavera MD Electronically Signed Final Report 04/07/2017 11:28 am Lenore Mcginnis MD IM US PROC ORDERA BLES documented in this encounter Visit Diagnoses Diagnosis Elevated PSA Elevated prostate specific antigen (PSA) Elevated PSA Elevated prostate specific antigen (PSA) documented in this encounter Care Teams Club Waiter/Waitress Relationship Specialty Start Date End Date Reji Adams MD [facility] GENERAL [place] [address] PCP - General Internal Medicine 07/13/15 documented as of this encounter
--- OUTSIDE RECORDS SUMMARY | 2024-07-09 11:15 | XMS_ITS | Encounter Summary ---
Author Organization [facility] Address [facility] [place] [address] Care Team Providers Care Superintendent Of Schools Name Role Phone Reji Adams MD Primary Care Provider Encounter Details Date Type Department Care Team (Late st Contact Info) Description 06/17/2017 Orders Only [place] [phone] Beckie Mathews APRN [facility] [place] [address] Constipation, unspecified constipation type Social History Tobacco [...] 11:30 AM EDT Office Visit [place] [phone] Charline Ziegler MD [facility] [place] [address] documented as of this encounter Visit Diagnoses Diagnosis Constipation, unspecified constipation type documented in this encounter Care Teams Superintendent Of Schools Relationship Specialty Start Date End Date Reji Adams MD [facility] [place] [address] PCP - General General Internal Medicine 07/13/15 documented as of this encounter
--- OUTSIDE RECORDS SUMMARY | 2024-07-09 11:15 | XMS_ITS | Encounter Summary ---
Author Organization [facility] [place] [address] Care Team Providers Care Fountain Brush Assembler Name Role Phone Reji Adams MD Primary Care Provider [phone] Reason for Visit * Reason Onset Date Comments Other 04/04/2017 Encounter Details Date Type Department Care Team (Late st Contact Info) Description 04/04/2017 Telephone Internal Medicine at [address] [address] Adenike Razo Other Social History Tobacco Use Types Packs/Day [...] encounter Miscellaneous Notes * Telephone Encounter - Alexis Kate - 04/04/2017 1:46 PM EDT Message: Patient is calling to speak to Dr. Jerome in regards to results. Please call back. Caller and relationship (if other than patient-full name): Self Best time to call back: any Ok to leave a message: [yes] Nurse contacted via: Message: x Call: x * Telephone Encounter - Danni Adenike Quick - 04/04/2017 8:24 AM EDT Message: pt said has tried calling him a few time and that today would be a good day for him to call. Caller and relationship (if other than patient-full name): self Best time to call back: any except around noon Ok to leave a message: [yes] Ok to send my- message: [] Offered Appointment: Nurse contacted via: Message: Call: Pager: documented in this encounter Plan of Treatment Upcoming Encounters Date Type Department Care Team (Late st Contact Info) Description 12/15/2024 11:30 AM EDT Office [place] [address] Charline Ziegler MD [facility] [place] [address] documented as of this encounter Visit Diagnoses Not on filedocumented in this encounter Care Teams Fountain Brush Assembler Relationship Specialty Start Date End Date Reji Adams MD [facility] [place] [address] PCP - General General Internal Medicine 07/13/15 documented as of this encounter
--- OUTSIDE RECORDS SUMMARY | 2024-07-09 11:15 | XMS_ITS | Encounter Summary ---
Author Organization [facility] Address [facility] [place] [address] Care Team Providers Care Behavioral Therapist Name Role Phone Reji Adams MD Primary Care Provider [phone] Encounter Details Date Type Department Care Team (Late st Contact Info) Description 04/14/2017 [place] [address] Tobias Mcginnis MD [facility] [place] [address] Social History Tobacco Use Types Packs/Day Years [...] Telephone Encounter - Tobias Mcginnis MD - 04/14/2017 5:49 PM EDT I called Mr. Mckeon with Biopsy results, this showed no evidence of cancer. I will plan to see him back in 6 months with a PSA. documented in this encounter Plan of Treatment Upcoming Encounters Date Type Department Care Team (Late st Contact Info) Description 12/15/2024 11:30 AM EDT Office [place] [address] Charline Ziegler MD [facility] [place] [address] documented as of this encounter Results * (ABNORMAL) PSA (10/23/2017 1:54 PM EDT) Prostate Specific Antigen (Ultrasensitiv e) 6.62(H) 0.00 - 4.00 ng/mL [facility] Blood specimen (specimen) 10/23/2017 1:54 PM EDT 10/23/2017 2:03 PM EDT Narrative Resulting Agency Comment Spec In Lab Tobias Mcginnis MD CHEMISTRY ORDERABL ES [facility] [place] [address] documented in this encounter Visit Diagnoses Diagnosis Elevated PSA Elevated prostate specific antigen (PSA) documented in this encounter Care Teams Behavioral Therapist Relationship Specialty Start Date End Date Reji Adams MD [facility] [place] [address] PCP - General General Internal Medicine 07/13/15 documented as of this encounter
--- OUTSIDE RECORDS SUMMARY | 2024-07-09 11:15 | XMS_ITS | Encounter Summary ---
Author Organization [facility] [place] [address] Care Team Providers Care Manager Code Name Role Phone Reji Adams MD Primary Care Provider [phone] Reason for Visit * Reason Onset Date Comments Triage 06/18/2017 Encounter Details Date Type Department Care Team (Late st Contact Info) Description 06/18/2017 Telephone Internal Medicine at [address] [address] Radha Berman Triage Social History Tobacco Use Types Packs/Day [...] Telephone Encounter - Amrita Rodriguez RN - 06/18/2017 9:16 AM EST TC to patient. He states he took a full bottle of mg citrate and fleet enema last night, has has been passing only colored water frequently since. Denies abdominal pain, but doesn't feel right. He states he is very hungry. Per Beckie Mathews, advised to go to ED for regular enema which is not available at clinic, and to report back this afternoon. * Telephone Encounter - Radha Berman - 06/18/2017 9:07 AM EST Message: pt calling would like to speak to a nurse in regards to his appointment from yesterday. Caller and relationship (if other than patient-full name): Best time to call back: any Ok to leave a message: [y] Ok to send my- message: [n] Offered Appointment: MA/Nurse contacted via: Message: X Call: Pager: documented in this encounter Plan of Treatment Upcoming Encounters Date Type Department Care Team (Late st Contact Info) Description 12/15/2024 11:30 AM EDT Office [place] [address] Charline Ziegler MD [facility] [place] [address] documented as of this encounter Visit Diagnoses Not on filedocumented in this encounter Care Teams Manager Code Relationship Specialty Start Date End Date Reji Adams MD [facility] [place] [address] PCP - General General Internal Medicine 07/13/15 documented as of this encounter
--- OUTSIDE RECORDS SUMMARY | 2024-07-09 11:15 | XMS_ITS | Encounter Summary ---
Author Organization [facility] Address [facility] [place] [address] Care Team Providers Care Tractor Trailer Moving Van Driver Name Role Phone Reji Adams MD Primary Care Provider [phone] Encounter Details Date Type Department Care Team (Late st Contact Info) Description 05/16/2017 Abstract [facility] Conversion Results [address] [place] [phone] Apd Conversion, Flowsheet Provider, Social History Tobacco [...] Sign Reading Time Taken Comments Blood Pressure 138/78 05/16/2017 3:23 PM EDT Sourced from APD Conversion Pulse - - Temperature - - Respiratory Rate - - Oxygen Saturation - - Inhaled Oxygen Concentration - - Weight 97 kg (213 lb 13.5 oz) 05/16/2017 3:23 PM EDT Sourced from [facility] Conversion Height 180 cm (5' 10.87) 05/16/2017 3: 23 PM EDT Sourced from [facility] Conversion Body Mass Index 29.94 05/16/2017 3:23 PM EDT documented in this encounter Plan of Treatment Upcoming Encounters Date Type Department Care Team (Late st Contact Info) Description 12/15/2024 11:30 AM EDT Office Visit [place] [address] Charline Ziegler MD [facility] [place] [address] documented as of this encounter Visit Diagnoses Not on filedocumented in this encounter Care Teams Tractor Trailer Moving Van Driver Relationship Specialty Start Date End Date Reji Adams MD [facility] [place] [address] PCP - General General Internal Medicine 07/13/15 documented as of this encounter
--- OUTSIDE RECORDS SUMMARY | 2024-07-09 11:15 | XMS_ITS | Encounter Summary ---
Author Organization [facility] Address [facility] [place] [address] Care Team Providers Care Undergraduate Advisor Name Role Phone Reji Adams MD Primary Care Provider Encounter Details Date Type Department Care Team (Latest Contact Info) Description 05/13/2017 4:20 PM EDT - 05/13/2017 11:59 PM EDT Hospital Encounter XRay at [address] [place] [address] Roderick Perkins MD [facility] [place] [address] Left shoulder pain, unspecified chronicity Discharge Disposition: Home Social [...] tablet by mouth daily. 90 tablet 3 04/14/2017 06/17/2017 aspirin 81 mg Tablet, Delayed Release (E.C.) Take 81 mg by mouth daily. 03/17/2023 ibuprofen (ADVIL) 200 mg tablet Take 400 mg by mouth every 6 hours as needed. 05/08/2018 ALPRAZolam (XANAX) 0.25 mg tablet Take 0.25 mg by mouth 3 times daily as needed. 03/19/2018 Saw Winters 500 mg capsule Take 500 mg by mouth daily. 03/14/2020 naproxen sodium (ALEVE) 220 mg tablet Take 220 mg by mouth as needed. 01/04/2011 07/09/2017 documented as of this encounter Plan of Treatment Upcoming Encounters Date Type Department Care Team (Late st Contact Info) Description 12/15/2024 11:30 AM EDT Office [place] [address] Charline Ziegler MD [facility] [place] [address] documented as of this encounter Procedures Procedure Name Priority Date/Time Associated Diagnosis Comments XR SHOULDER LEFT Routine 05/13/2017 4:30 PM EDT Left shoulder pain, unspecified chronicity documented in this encounter Results * XR Shoulder Left (Generic) (05/13/2017 4:30 PM EDT) Anatomical Region Laterality Modality Shoulder Left Digital Radiogra phy Impressions 05/13/2017 4:47 PM EDT Unchanged, 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 Calcific tendinitis is not as well-seen on this exam but the shoulder is in slight internal rotation, it may still be present but just not visualized. Narrative 05/13/2017 4:47 PM EDT EXAMINATION: XR SHOULDER LEFT (GENERIC) CLINICAL HISTORY: Left Shoulder Pain TECHNIQUE: Axillary, scapular Y, AP internal and external rotation. 4 views COMPARISON: 08/29/2015 FINDINGS: Previously seen calcific tendinitis of rotator cuff tendon, possibly supraspinatus or infraspinatus, is not well appreciated on this exam. The shoulder was in better external rotation on the prior study and such changes may be positional. Small bone island in the humeral head. Moderately advanced glenohumeral osteoarthritis, acromioclavicular osteoarthritis. No glenohumeral dislocation. Humeral head is not superiorly migrated. Procedure Note Savanah Carter MD - 05/13/2017 EXAMINATION: XR SHOULDER LEFT (GENERIC) CLINICAL HISTORY: Left Shoulder Pain TECHNIQUE: Axillary, scapular Y, AP internal and external rotation. 4 views COMPARISON: 08/29/2015 FINDINGS: Previously seen calcific tendinitis of rotator cuff tendon, possibly supraspinatus or infraspinatus, is not well appreciated on this exam.The shoulder was in better external rotation on the prior study and suchchanges may be positional. Small bone island in the humeral head. Moderatelyadvanced glenohumeral osteoarthritis, acromioclavicular osteoarthritis. Noglenohumeral dislocation. Humeral head is not superiorly migrated. 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 Calcific tendinitis is not as well-seen on this exam butthe shoulder is in slight internal rotation, it may still be present but justnot visualized. Roderick Perkins MD IMG DX ORDERABLES documented in this encounter Visit Diagnoses Diagnosis Left shoulder pain, unspecified chronicity documented in this encounter Care Teams Undergraduate Advisor Relationship Specialty Start Date End Date Reji Adams MD [facility] [address] PCP - General Internal Medicine 07/13/15 documented as of this encounter
--- OUTSIDE RECORDS SUMMARY | 2024-07-09 11:15 | XMS_ITS | Encounter Summary ---
Author Organization [facility] Address [facility] [place] [address] Care Team Providers Care Clinical Dietician Name Role Phone Reji Adams MD Primary Care Provider Encounter Details Date Type Department Care Team (Late st Contact Info) Description 03/28/2017 Telephone [place] [phone] Tiago Jerome MD [facility] [place] [address] Social History Tobacco Use Types Packs/Day Years [...] encounter Miscellaneous Notes * Telephone Encounter - Tiago Jerome - 04/06/2017 6:02 PM EDT Called pt and discussed normal PFT results. He is continuing to have some sensation of not being able to get a deep enough breath despite normal workup to this point. We discussed that one option would be to try albuterol inhaler although his PFTs do not indicate significant bronchoconstriction. Hehas been trying an all natural inhaler which has been helping somewhat and wishes to defer further pharmacologic interventions at this time. We also discussed the possibility that anxiety/depression may be contributing to his symptoms. His predominant symptom is fatigue. He is preparing for prostate biopsy which is occupying his mind significantly. After this procedure, if he is still having symptoms, he will ho-chunk back to discuss options from here. * Telephone Encounter - Tiago Jerome - 04/03/2017 6:07 PM EDT Called pt again to discuss PFT results; no answer, left message stating will try again. * Telephone Encounter - Tiago Jerome - 03/28/2017 3:43 PM EDT Called pt to discuss PFT results. No answer; left message stating will try to reach him Friday. documented in this encounter Plan of Treatment Upcoming Encounters Date Type Department Care Team (Late st Contact Info) Description 12/15/2024 11:30 AM EDT Office Visit [place] [address] Charline Ziegler MD [facility] [place] [address] documented as of this encounter Visit Diagnoses Not on filedocumented in this encounter Care Teams Clinical Dietician Relationship Specialty Start Date End Date Reji Adams MD [facility] [place] [address] PCP - General General Internal Medicine 07/13/15 documented as of this encounter
--- OUTSIDE RECORDS SUMMARY | 2024-07-09 11:15 | XMS_ITS | Encounter Summary ---
Author Organization [facility] [place] [address] Care Team Providers Care Crop Research Scientist Name Role Phone Reji Adams MD Primary Care Provider Reason for Referral * Consultation (Routine) - Closed Specialty Diagnoses / Procedures Referred By Duglas arizmendi Referred To Contact Gastroenterology Diagnoses abdominal discomfort, poor appetite, decreased bowel movements without stool burden seen on imaging Candace Adams MD [facility] [place] [address] [facility] [address] [place] [address] Referral ID Status Reason Start Date Expiration Date V isits Requested Visits Authorized [id number] Closed Consult, Test & Treat 06/19/2017 06/19/2018 1 1 Reason for Visit * Reason Comments Abdominal Pain Encounter Details Date Type Department Care Team (Late st Contact Info) Description 06/19/2017 11:42 AM EST - 06/19/2017 2:27 PM EST Emergency [place] [id number] Zurdo Barcenas MD [facility] [place] [address] Decreased stooling; Bloating Discharge Disposition: Home Social History Tobacco Use [...] Sign Reading Time Taken Comments Blood Pressure 113/60 06/19/2017 2:00 PM EST Pulse 77 06/19/2017 11:48 AM EST Temperature 36.7 ??C (98.1 ??F) 06/19/2017 11:[address] Respiratory Rate 18 06/19/2017 11:48 AM EST Oxygen Saturation 98% 06/19/2017 2:00 PM EST Inhaled Oxygen Concentration - - Weight - - Height - - Body Mass Index - - documented in this encounter Discharge Instructions * Discharge Instructions* Candace Adams MD - 06/19/2017 2:18 PM EST Please continue your bowel regimen at home with miralax as needed to obtain regular bowel movements. You have been provided with a referral to GI for further evaluation of your symptoms. Return to the ER if you experience abdominal pain, vomiting, fever, or any other symptoms you are concerned about. You should follow up with your primary care provider tomorrow for re-evaluation. documented in this encounter Medications at Time of Discharge Medication Sig Dispensed Refills Start Date End Date multivitamin (THERAGRAN) tablet Take 1 tablet by mouth daily. sodium phosphates (FLEET) EnemaIndications:Acute constipation Place 1 Bottle rectally once as needed for Constipation for up to 1 dose. 135 mL 06/17/2017 07/18/2017 aspirin 81 mg Tablet, Delayed Release (E.C.) Take 81 mg by mouth daily. 03/17/2023 ibuprofen (ADVIL) 200 mg tablet Take 400 mg by mouth every 6 hours as needed. 05/08/2018 ALPRAZolam (XANAX) 0.25 mg tablet Take 0.25 mg by mouth 3 times daily as needed. 03/19/2018 Saw [facility] 500 mg capsule Take 500 mg by mouth daily. 03/14/2020 naproxen sodium (ALEVE) 220 mg tablet Take 220 mg by mouth as needed. 01/04/2011 07/09/2017 documented as of this encounter ED Notes * Edward Samuels NRP - 06/19/2017 2:10 PM EST Patient stated that he had gotten up to the bathroom and only past liquid and no solid stool. * Zurdo Barcenas MD - 06/19/2017 1:08 PM EST Brief Attending Note I cared for the patient with the resident physician. Please see Dr. Adams's note, associated with the encounter, for more details. HPI: Ken Mckeon is a 71 y.o. who presents to the ED complaining of constipation. He reports roughly 2-3 weeks of decreased stool output, with bloating. He has tried several home remedies including MiraLAX, magnesium citrate, prune juice, suppositories. When he takes magnesium citrate, he notes that he puts out normal watery stools. He was seen yesterday in the emergency department for same, and ultimately had a KUB as well as a CT scan. The CT scan showed no obstruction, some fluid-filled ascending colon and decompressed distal colon. It was otherwise negative. He was given a enema, but feels that it was not an long enough. He has had decreased oral intake because he is scared that I amgoing to back myself up more. Today he has some mild increase in his discomfort. He has had some flatus. ROS: Pertinent positives and negatives are included in the history of present illness, otherwise 10 systems are reviewed and negative Gen: well appearing, NAD HENT: atraumatic, OP clear, mmm Pulm: CTA brennan, no respiratory distress Card: RRR Abd: soft, mildly tender lower abdomen without rebound or guarding Skin: warm and dry Neuro: speech fluent, no obvious deficit MS: No obvious deformity Psych: Normal mood Assessment: 71-year-old male presenting with constipation- however his history and CT scan imaging from yesterday do not necessarily support this, given low stool burden, and the fact that he puts out copious watery diarrhea with mag citrate. We will repeat KUB imaging as well as labs to further evaluate. Unclear if this is a functional problem (which will require outpatient referral to GI) versus a different process which was not seen on imaging yesterday (unlikely). Zurdo Barcenas MD 06/19/17 1311 * Candace Adams MD - 06/19/2017 12:05 PM EST ED Resident Note Ken Mckeon is an 71 y.o. male who presents to the ED with: Chief Complaint Patient presents with ??? Abdominal Pain I saw this patient 06/19/2017 at approximately 12pm HPI Ken Mckeon is a 71 y.o. male with hx BPH who presents to the Emergency Department 2 weeks of constipation. Two days ago, he was evaluated by his PCP who prescribed magnesium citrate and had subsequent watery stools but no BM. Yesterday, presented to the ED with same complaint. Labs notable for normal white blood cell count, renal function, electrolytes. Patient reported small bowel movementafter soap suds enema and CT abdomen and pelvis results is negative for acute pathology. CT read yesterday for a normal terminal ileum with a fluid-filled ascending colon. Distal to the colon is decompressed. Since discharge, he reports that he has had no further bowel movements. He has felt hungry, but does not want to eat for a few year that he will make things worse. He has not had abdominal pain, but endorses some discomfort and bloating. He feels that his enema yesterday was not complete because it was cut slightly short due to needing to obtain his CT scan during the scheduling window. He desires another enema today. He has taken MiraLAX last night and this morning at home. He ate some oatmeal this morning. He has had some nausea, without vomiting. Review of Systems: Review of Systems Constitutional: Negative for fever. HENT: Negative for congestion, rhinorrhea and sore throat. Eyes: Negative for visual disturbance. Respiratory: Negative for cough and shortness of breath. Cardiovascular: Negative for chest pain and palpitations. Gastrointestinal: Positive for constipation and nausea. Negative for abdominal pain, diarrhea and vomiting. Genitourinary: Negative for difficulty urinating, frequency and urgency. Skin: Negative for color change and rash. Neurological: Negative for syncope and headaches. Psychiatric/Behavioral: Negative for confusion. Physical Exam: Patient Vitals for the past 24 hrs: BP Temp Temp src Pulse Resp SpO2 06/19/17 1400 113/60 - - - - 98 % 06/19/17 1230 109/62 - - - - 94 % 06/19/17 1200 118/65 - - - - 98 % 06/19/17 1156 113/70 - - - - 99 % 06/19/17 1148 122/70 36.7 ??C (98.1 ??F) Oral 77 18 98 % Physical Exam Constitutional: He is oriented to person, place, and time. He appears well- developed and well-nourished. HENT: Head: Normocephalic and atraumatic. Right Ear: External ear normal. Left Ear: External ear normal. Nose: Nose normal. Eyes: EOM are normal. Neck: Neck supple. Cardiovascular: Normal rate, regular rhythm and normal heart sounds. Pulmonary/Chest: Effort normal and breath sounds normal. No respiratory distress. He has no wheezes. He has no rales. Abdominal: Soft. Bowel sounds are normal. He exhibits no distension. There is no tenderness. There is no rebound and no guarding. Neurological: He is alert and oriented to person, place, and time. Skin: Skin is warm and dry. Psychiatric: He has a normal mood and affect. His behavior is normal. Nursing note and vitals reviewed. ED Course: - Patient seen under the supervision of Dr. Barcenas - Medications, allergies and past medical history reviewed Medications given Medications sodium phosphates (FLEET) 19-7 gram/118 mL rectal enema 1 Bottle (1 Bottle Rectal Given 06/19/17 1318) Significant lab results Recent Results (from the past 24 hour(s)) Basic Metabolic Panel (non-fasting) Result Value Ref Range Glucose Lvl 82 65 - 199 mg/dL BUN 9 (L) 10 - 20 mg/dL Creatinine 0.99 0.80 - 1.50 mg/dL Sodium 138 135 - 145 mmol/L Potassium 3.9 3.5 - 5.0 mmol/L Chloride 99 98 - 107 mmol/L CO2 25 22 - 31 mmol/L Anion Gap 14 5 - 15 mmol/L Calcium 9.5 8.5 - 10.5 mg/dL Estimated GFR >60 >=60 Lipase Result Value Ref Range Lipase 41 0 - 60 unit/L Hemogram Result Value Ref Range WBC 7.0 4.0 - 9.5 x10(3)/mcL RBC 4.91 4.58 - 5.54 x10(6)/mcL Hemoglobin 15.2 13.7 - 16.5 gm/dL Hematocrit 43.4 40.5 - 48.5 % MCV 88.4 82.9 - 93.1 fL MCH 31.0 27.5 - 32.1 pg MCHC 35.0 32.0 - 35.7 gm/dL Platelets 176 145 - 357 x10(3)/mcL RDWSD 42.1 36.0 - 45.0 fL RDWCV 13.1 11.4 - 13.8 % MPV 9.7 7.6 - 12.9 fL nRBC % Auto 0.0 % nRBC Abs Auto 0.000 0.000 - 0.000 x10(3)/mcL Differential, Automated Result Value Ref Range Neutrophils % 57.3 % Neutr Abs (ANC) 4.00 1.70 - 6.10 x10(3)/mcL Lymphocytes % 34.6 % Lymphocytes Abs 2.4 0.9 - 3.2 x10(3)/mcL Monocytes % 6.4 % Monocyte Abs 0.4 0.3 - 0.9 x10(3)/mcL Eosinophils % 1.0 % Eosinophils Abs 0.1 0.0 - 0.4 x10(3)/mcL Basophils % 0.4 % Basophils Abs 0.0 0.0 - 0.1 x10(3)/mcL Immature Gran % 0.30 % Mahsa Gran Abs 0.02 0.00 - 0.04 x10(3)/mcL Blue Tube HOLD Result Value Ref Range Blue Hold Sample in lab. Gold Tube HOLD Result Value Ref Range Gold Hold Sample in lab. Urinalysis with reflex Culture Result Value Ref Range Glucose UA Negative Negative mg/dL Protein UA Negative Negative mg/dL Bilirubin UA Negative Negative mg/dL Urobilinogen UA Normal Normal mg/dL pH UA 6.0 5.0 - 8.0 Blood UA Negative Negative mg/dL Ketones UA 5 (A) Negative mg/dL Nitrite UA Negative Negative Leukocytes UA Negative Negative mcL Appearance UA Hazy (A) Clear Spec [place] UA 1.003 1.002 - 1.030 Color UA Yellow Yellow Culture Reflexed No Urine Hold Result Value Ref Range Urine Hold Sample in lab. Imaging - KUB IMPRESSION Nonobstructive bowel gas pattern. No evidence of free air. Assessment and Plan: Assessment: Ken Mckeon is a 71 y.o. male with hx BPH who presents to the Emergency Department 2weeks of constipation. Yesterday, presented to the ED with same complaint. Patient reported smallbowel movement after soap suds enema and CT abdomen and pelvis results is negative for acute pathology. CT read yesterday for a normal terminal ileum with a fluid-filled ascending colon. Distal to the colon is decompressed. Since discharge yesterday, he reports that he has had no further bowel movements. He has not had abdominal pain, but endorses some discomfort and bloating. He has had some nausea, without vomiting. Labs performed today were unremarkable. Abdominal exam is benign. KUB shows nonobstructive bowel gas p attern. Patient was given another enema without a bowel movement. However, based on the imaging, itdoes not appear there is a large stool burden. The setting of the sensation of bloating and symptoms without significant stool, patient was given a GI referral for further follow-up outpatient. Plan: - Continue miralax at home - Follow up with PCP - GI referral provided - Return precautions discussed with patient Return precautions were verbally discussed with the patient and written in discharge instructions. The patient expressed understanding that he could come back to the ED at any time and agreed to the follow-up plan. Candace Adams MD PGY-2 Pager #[phone] *Note dictated with Instant Information software Candace Adams MD Resident 06/19/17 2243 Associated attestation - Zurdo Barcenas MD - 06/19/2017 5:18 PM EST ED ATTENDING ATTESTATION The patient [...] unless stated otherwise in my separate note. documented in this encounter Miscellaneous Notes * ED Triage - Sylvia Tomlinson - 06/19/2017 11:53 AM EST Constipation x several weeks. Seen in ED yesterday for same complaint, had xray and CT. Pt recievedenema and miralax with no relief. Nausea, abd discomfort this morning. Poor PO intake. documented in this encounter Plan of Treatment Upcoming Encounters Date Type Department Care Team (Late st Contact Info) Description 12/15/2024 11:30 AM EDT Office [place] [address] Charline Ziegler MD [facility] [place] [place] [address] Scheduled Referrals Name Type Priority Associated Diagnoses Order Schedule Referral to Gastroenterology Outpatient Referral Routine Ordered: 06/19/2017 documented as of this encounter Procedures Procedure Name Priority Date/Time Associated Diagnosis Comments URINE HOLD STAT 06/19/2017 1:43 PM EST URINALYSIS WITH REFLEX CULTURE STAT 06/19/2017 1:43 PM EST HEMOGRAM STAT 06/19/2017 1:15 PM EST DIFFERENTIAL, AUTOMATED STAT 06/19/2017 1:15 PM EST GOLD TUBE HOLD STAT 06/19/2017 1:15 PM EST BLUE TUBE HOLD STAT 06/19/2017 1:15 PM EST CBC (WITH DIFF) STAT 06/19/2017 1:15 PM EST LIPASE STAT 06/19/2017 1:15 PM EST BASIC METABOLIC PANEL STAT 06/19/2017 1:15 PM EST XR ABDOMEN FLAT AND UPRIGHT STAT 06/19/2017 12:59 PM EST documented in this encounter Results * Urine Hold (06/19/2017 1:43 PM EST) Hold, Urine Sample in lab. [facility] Urine specimen (specimen) Urine / Unknown 06/19/2017 1:43 PM EST 06/19/2017 1:50 PM EST Zurdo Barcenas MD URINE ORDERABLES [facility] [place] [address] * (ABNORMAL) Urinalysis with reflex Culture (06/19/2017 1:43 PM EST) Glucose, Urine Dipstick Negative Negative mg/dL [facility] Protein, Urine Dipstick Negative Negative mg/dL [facility] Bilirubin, Urine Dipstick Negative Negative mg/dL [facility] Comment: Clinical correlation required for positive Urine Bilirubin results as false positive may occur with some drugs and drug related products. If a false positive is suspected a serum total bilirubin should be considered if clinically indicated. Urobilinogen, Urine Dipstick Normal Normal mg/dL [facility] pH, Urn (dipstick) 6.0 5.0 - 8.0 [facility] Blood, Urine Dipstick Negative Negative mg/dL [facility] Ketone, Urine Dipstick 5(A) Negative mg/dL [facility] Nitrite, Urine Dipstick Negative Negative [facility] Leukocytes, Urine Dipstick Negative Negative [facility] Appearance, Urine Dipstick Hazy(A) Clear [facility] Specific [place] Urine Automated 1.003 1.002 - 1.030 [facility] Color, Urine Dipstick Yellow Yellow [facility] Reflex to Culture No [facility] Urine specimen (specimen) 06/19/2017 1:43 PM EST 06/19/2017 1:50 PM EST Narrative Resulting Agency Comment Spec In Lab Zurdo Barcenas MD URINE ORDERABLES Performing Organization Address [facility]/ZIP Co de Phone Number [facility] [place] [address] * Gold Tube HOLD (06/19/2017 1:15 PM EST) Gold Hold Sample in lab. [facility] Blood specimen (specimen) Venous Draw / Unknown 06/19/2017 1:15 PM EST 06/19/2017 1:26 PM EST Zurdo Barcenas MD CHEMISTRY ORDERABL ES Performing Organization Address [facility] Co de Phone Number [facility] [place] [address] * Blue Tube HOLD (06/19/2017 1:15 PM EST) Blue Hold Sample in lab. [facility] Blood specimen (specimen) Venous Draw / Unknown 06/19/2017 1:15 PM EST 06/19/2017 1:26 PM EST Zurdo Barcenas MD HEMATOLOGY ORDERAB LES Performing Organization Address City/[facility]/ZIP Co de Phone Number [facility] [place] [address] * Differential, Automated (06/19/2017 1:15 PM EST) Neutrophil % 57.3 % [facility] Neutrophil Absolute 4.00 1.70 - 6.10 x10(3)/[facility] Lymph % 34.6 % [facility] Lymphocytes Abs 2.4 0.9 - 3.2 x10(3)/[facility] Monocyte % 6.4 % [facility] Monocyte Abs 0.4 0.3 - 0.9 x10(3)/[facility] Eos % 1.0 % [facility] Eosinophils Abs 0.1 0.0 - 0.4 x10(3)/[facility] Basophil % 0.4 % [facility] Baso Absolute 0.0 0.0 - 0.1 x10(3)/[facility] Immature Gran % 0.30 % [facility] Comment: Immature granulocytes(IG's)percentage and absolute count will include metamyelocytes, myelocytes, and promyelocytes. Blood smears from CBCs yielding IG's will be scanned manually for concordance. If this scan disagrees with the automated IG or if promyelocytes are noted, a manual differential will be performed. Immature Gran Absolute 0.02 0.00 - 0.04 x10(3)/[facility] Blood specimen (specimen) 06/19/2017 1:15 PM EST 06/19/2017 1:25 PM EST Narrative Resulting Agency Comment Spec In Lab Zurdo Barcenas MD HEMATOLOGY ORDERAB LES Performing Organization Address City/State/[facility] Co de Phone Number [facility] [place] [address] * Hemogram (06/19/2017 1:15 PM EST) White Blood Cell 7.0 4.0 - 9.5 x10(3)/[facility] Red Blood Cell 4.91 4.58 - 5.54 x10(6)/[facility] Hemoglobin 15.2 13.7 - 16.5 gm/dL [facility] Hematocrit 43.4 40.5 - 48.5 % [facility] Mean Cell Volume 88.4 82.9 - 93.1 fL [facility] Mean Cell Hemoglobin 31.0 27.5 - 32.1 pg [facility] Mean Cell Hemoglobin Concentration 35.0 32.0 - 35.7 gm/dL [facility] Platelet 176 145 - 357 x10(3)/[facility] RDW Standard Deviation 42.1 36.0 - 45.0 fL [facility] RDW coefficient of variation 13.1 11.4 - 13.8 % [facility] Mean Platelet Volume 9.7 7.6 - 12.9 fL [facility] NRBC% auto 0.0 % [facility] NRBC Absolute 0.000 0.000 - 0.000 x10(3)/[facility] Blood specimen (specimen) 06/19/2017 1:15 PM EST 06/19/2017 1:25 PM EST Narrative Resulting Agency Comment Spec In Lab Zurdo Barcenas MD HEMATOLOGY ORDERAB LES Performing Organization Address [facility] Co de Phone Number [facility] [place] [address] * Lipase (06/19/2017 1:15 PM EST) Pathologist [facility] Lipase 41 0 - 60 unit/L [facility] Blood specimen (specimen) 06/19/2017 1:15 PM EST 06/19/2017 1:25 PM EST Narrative Resulting Agency Comment Spec In Lab Zurdo Barcenas MD CHEMISTRY ORDERABL ES Performing Organization Address [facility] Co de Phone Number [facility] [place] [address] * (ABNORMAL) Basic Metabolic Panel (non-fasting) (06/19/2017 1:15 PM EST) Glucose 82 65 - 199 mg/dL [facility] Comment:Diabetes: >=200 mg/d L plus symptoms Blood Urea Nitrogen 9(L) 10 - 20 mg/dL [facility] Creatinine 0.99 0.80 - 1.50 mg/dL [facility] Sodium 138 135 - 145 mmol/L [facility] Potassium 3.9 3.5 - 5.0 mmol/L [facility] Comment: Please note: ??Patients with WBC >100,000 may have falsely elevated Potassium levels. ??For accurate Potassium quantification in these patients send serum separator tube (gold top) for subsequent determinations. ??Contact the Clinical Chemistry Laboratory if there are any questions. Chloride 99 98 - 107 mmol/L [facility] Carbon Dioxide 25 22 - 31 mmol/L [facility] Anion Gap 14 5 - 15 mmol/L [facility] Calcium 9.5 8.5 - 10.5 mg/dL [facility] Est Glomerular Filtration Rate >60 >=60 [facility] Comment: The reported eGFR should be multiplied by 1.2 for patients. The MDRD is not an appropriate measure of renal function for patients with body mass extremes or in patients with acute kidney failure. http://DE Spirits/DHnkdep http://DE Spirits/DHMCnkf Blood specimen (specimen) 06/19/2017 1:15 PM EST 06/19/2017 1:25 PM EST Narrative Resulting Agency Comment Spec In Lab Zurdo Barcenas MD CHEMISTRY ORDERABL ES Performing Organization Address City/State/[facility] Co de Phone Number [facility] [place] [address] * XR Abdomen Flat & Upright (06/19/2017 12:59 PM EST) Anatomical Region Laterality Modality Abdomen N/A Digital Radiogra phy Impressions 06/19/2017 1:25 PM EST Nonobstructive bowel gas pattern. No evidence of free air. Narrative 06/19/2017 1:25 PM EST EXAMINATION: XR ABDOMEN FLAT AND UPRIGHT CLINICAL HISTORY: constipation, abdominal discomfort TECHNIQUE: Supine and upright abdomen COMPARISON: CT abdomen pelvis 06/18/2017, 06/17/2017. FINDINGS: ??Air is seen in scattered nondilated small bowel. ??Air and fecal material are seen in scattered loops of colon to level of the rectosigmoid. Nonspecific few small air-fluid levels are seen in the right mid abdomen. No abnormal abdominal calcifications. The lung bases are clear. Degenerative changes of the hips and lumbar spine. Procedure Note Mayte Barker MD - 06/19/2017 EXAMINATION: XR ABDOMEN FLAT AND UPRIGHT CLINICAL HISTORY: constipation, abdominal discomfort TECHNIQUE: Supine and upright abdomen COMPARISON: CT abdomen pelvis 06/18/2017, 06/17/2017. FINDINGS: Air is seen in scattered nondilated small bowel. Air andfecal material are seen in scattered loops of colon to level of therectosigmoid. Nonspecific few small air-fluid levels are seen in the right mid abdomen.No abnormal abdominal calcifications. The lung bases are clear.Degenerative changes of the hips and lumbar spine. IMPRESSION Nonobstructive bowel gas pattern. No evidence of free air. Electronically signed by: Mayte Barker Radiology, at108/19/2016 1:25 PM Zurdo Barcenas MD IMG DX ORDERABLES documented in this encounter Visit Diagnoses Diagnosis Decreased stooling Other symptoms involving digestive system Bloating Flatulence, eructation, and gas pain documented in this encounter Administered Medications Inactive Administered Medications - up to 3 most recent administrations Medication Order MAR Action Action Date Dose Rate Site sodium phosphates (FLEET) 19-7 gram/118 mL rectal enema 1 Bottle 1 Bottle, Rectal, ONCE, 1 dose, On Alice 06/19/17 at 1235, Routine Given 06/19/2017 1:18 PM EST 1 Bottle documented in this encounter Active and Recently Administered Medications Times are shown in EST. Scheduled Medication Order 06/17/2017 06/18/2017 06/19/2017 sodium phosphates (FLEET) 19-7 gram/118 mL rectal enema 1 Bottle (COMPLETED) 1 Bottle, Rectal, ONCE, 1 dose, On [place] 06/19/17 at 1235, Routine 1318 (Given - Provid er: Edward Samuels NRP) documented in this encounter Care Teams Crop Research Scientist Relationship Specialty Start Date End Date Reji Adams MD [facility] [place] [address] PCP - General General Internal Medicine 07/13/15 documented as of this encounter
--- OUTSIDE RECORDS SUMMARY | 2024-07-09 11:15 | XMS_ITS | Encounter Summary ---
Author Organization [facility] Address [facility] [place] [address] Care Team Providers Care Data Processing Operator Name Role Phone Reji Adams MD Primary Care Provider [phone] Encounter Details Date Type Department Care Team (Latest Contact Info) Description 04/07/2017 9:21 AM EDT - 04/07/2017 11:59 PM EDT Hospital [place] [address] Lenore Mcginnis MD [facility] [place] [id number] Elevated PSA Discharge Disposition: Home Social History [...] 3 times daily as needed. 03/19/2018 Saw [place] 500 mg capsule Take 500 mg by mouth daily. 03/14/2020 naproxen sodium (ALEVE) 220 mg tablet Take 220 mg by mouth as needed. 01/04/2011 07/09/2017 documented as of this encounter Plan of Treatment Upcoming Encounters Date Type Department Care Team (Late st Contact Info) Description 12/15/2024 11:30 AM EDT Office [place] [address] Charline Ziegler MD [facility] [place] [address] documented as of this encounter Procedures Procedure Name Priority Date/Time Associated Diagnosis Comments US GUIDED BIOPSY PROSTATE ([place] ONLY) Routine 04/07/2017 11:03 AM EDT Elevated PSA SURGICAL PATHOLOGY REPORT Routine 04/07/2017 11:01 AM EDT SPECIMEN TO PATHOLOGY (NON-OR) Routine 04/07/2017 10:59 AM EDT documented in this encounter Results * US Guided Transrectal Biopsy (04/07/2017 11:03 AM EDT) Anatomical Region Laterality Modality Pelvis Ultrasound 04/07/2017 11:0 3 AM EDT Impressions 04/07/2017 11:28 AM EDT Prostate Summary Transrectal ultrasound was performed. No hypoechoic areas seen Prostate Biopsy Summary Ultrasound guidance was provided for Dr. Riddle of the section of Urology who performed multiple biopsies in the clinic location. ? Jay Tavera MD Electronically Signed Final Report ?? 04/07/2017 11:28 am Narrative 04/07/2017 11:28 AM EDT Male Pelvis ? (Signed Final 04/07/2017 11:28 am) PATIENT INFO: ID #: ? [id number] ?: ??[birth year] (71 yrs) Name: ? KEN COLE ? Visit Date: 04/07/2017 11:03 am PERFORMED BY: Performed By: ? Daniel GRIMM, ??Quita Attending: ?Jay Tavera MD. Referred By: ?LENORE Conrad NUZHATROSARIO Location: ? [place] SERVICE(S) PROVIDED: ??UTRBX - Prostate Biopsy - [id number] ?[id number] INDICATIONS: ??Elevated PSA --------- PROSTATE: --------- Size (cm) ?L: ??3.87 ?AP: ??3.23 ?TV: ??5.25 Vol (ml): ?34.4 Comment: ?No hypoechoic areas seen ADDITIONAL FINDINGS: 6 biopsies obtained from the right. 6 biopsies obtained from the left Transducer #: [id number] Procedure Note Jay Tavera MD - 04/07/2017 Male Pelvis (Signed Final 04/07/2017 11:28 am) PATIENT INFO: ID #: [id number] : [birth year] (71 yrs) Name: KEN COLE Visit Date: 04/07/2017 11:03 am PERFORMED BY: Performed By: Quita Sanchez RDMS Attending: Ayse CHAVEZ, Jay Vilchis Referred By: LENORE MCGINNIS Location: [place] SERVICE(S) PROVIDED: UTRBX - Prostate Biopsy - [id number], [id number] INDICATIONS: Elevated PSA --------- PROSTATE: --------- Size [...] Urology who performed multiple biopsies in the [address] [place] [address] location. Jay Tavera MD Electronically Signed Final Report 04/07/2017 11:28 am Lenore Mcginnis MD IMG US PROC ORDERA BLES * Surgical Pathology Report (04/07/2017 11:01 AM EDT) Final Diagnosis [id number] ? Location: 3S The signing pathologist has (i) examined the relevant preparation(s) for the specimen(s) and (ii) rendered or confirmed the diagnosis(es). . ?Surgical Pathology DIAGNOSIS Prostate needle core biopsies: A - Right base: Benign prostatic tissue. B - Right mid: Benign prostatic tissue. C - Right apex: Benign prostatic tissue. D - Right lateral base: Benign prostatic tissue. E - Right lateral mid: A small focus of atypical glands. F - Right lateral apex: Benign prostatic tissue. G - Left base: Benign prostatic tissue. H - Left mid: Benign prostatic tissue. I - Left apex: Benign prostatic tissue. J - Left lateral base: Benign prostatic tissue. K - Left lateral mid: Benign prostatic tissue with chronic inflammation. L - Left lateral apex: Benign prostatic tissue. Electronically signed by: ??Bri Howard MD Verified: ??04/11/2017 ?Pathologist ADDITIONAL STUDIES Whole slide scan: [id number] CLINICAL INFORMATION Specimen Submitted: A - Right base B - Right mid C - Right apex D - Right lateral base E - Right lateral mid F - Right lateral apex . CLINICAL INFORMATION G - Left base H - Left mid I - Left apex J - Left lateral base K - Left lateral mid L - Left lateral apex Clinical History: Elevated PSA Clinical Diagnosis: Rule out prostate cancer SPECIMEN PROCESSING A - Labeled/Fixativ e: Right base prostate, formalin. Qty/Size: Single davila-white needle core biopsy, 1.5 x 0.1 cm. Sections/Proces sing: ??(T1) B - Labeled/Fixativ e: Right mid prostate, formalin. Qty/Size: Single davila-white needle core biopsy, 1.5 x 0.1 cm. Sections/Proces sing: ??(T1) C - Labeled/Fixativ e: Right apex prostate, formalin. Qty/Size: Single davila-white needle core biopsy, 1.5 x 0.1 cm. Sections/Proces sing: ??(T1) D - Labeled/Fixativ e: Right lateral base prostate, formalin. Qty/Size: Single davila-white needle core biopsy, 1.7 x 0.1 cm. Sections/Proces sing: ??(T1) E - Labeled/Fixativ e: Right lateral mid prostate, formalin. Qty/Size: Single davila-white needle core biopsy, 1.2 x 0.1 cm. Sections/Proces sing: ??(T1) F - Labeled/Fixativ e: Right lateral apex prostate, formalin. Qty/Size: Single davila-white needle core biopsy, 1.0 x 0.1 cm. Sections/Proces sing: ??(T1) G - Labeled/Fixativ e: Left base prostate, formalin. Qty/Size: Single davila-white needle core biopsy, 2.0 x 0.1 cm. Sections/Proces sing: ??(T1) H - Labeled/Fixativ e: Left mid prostate, formalin. Qty/Size: Single davila-white needle core biopsy, 1.6 x 0.1 cm. Sections/Proces sing: ??(T1) I - Labeled/Fixativ e: Left apex prostate, formalin. Qty/Size: Single davila-white needle core biopsy, 1.0 x 0.1 cm. Sections/Proces sing: ??(T1) J - Labeled/Fixativ e: Left lateral base prostate, formalin. Qty/Size: Single davila-white needle core biopsy, 1.4 x 0.1 cm. Sections/Proces sing: ??(T1) K - Labeled/Fixativ e: Left lateral mid prostate, formalin. Qty/Size: Single davila-white needle core biopsy, 1.2 x 0.1 cm. Sections/Proces sing: ??(T1) L - Labeled/Fixativ e: Left lateral apex prostate, formalin. Qty/Size: Single davila-white needle core biopsy, 1.2 x 0.1 cm. Sections/Proces sing: ??(T1) ??beckie 04/11/2017 6:03 PM EDT [facility] PROSTATIC STRUCTURE / Unknown 04/07/2017 11:01 AM EDT 04/07/2017 11:01 AM EDT PROSTATIC STRUCTURE / Unknown 04/07/2017 11:01 AM EDT 04/07/2017 11:01 AM EDT PROSTATIC STRUCTURE / Unknown 04/07/2017 11:01 AM EDT 04/07/2017 11:01 AM EDT PROSTATIC STRUCTURE / Unknown 04/07/2017 11:01 AM EDT 04/07/2017 11:01 AM EDT PROSTATIC STRUCTURE / Unknown 04/07/2017 11:01 AM EDT 04/07/2017 11:01 AM EDT PROSTATIC STRUCTURE / Unknown 04/07/2017 11:01 AM EDT 04/07/2017 11:01 AM EDT PROSTATIC STRUCTURE / Unknown 04/07/2017 11:01 AM EDT 04/07/2017 11:01 AM EDT PROSTATIC STRUCTURE / Unknown 04/07/2017 11:01 AM EDT 04/07/2017 11:01 AM EDT PROSTATIC STRUCTURE / Unknown 04/07/2017 11:01 AM EDT 04/07/2017 11:01 AM EDT PROSTATIC STRUCTURE / Unknown 04/07/2017 11:01 AM EDT 04/07/2017 11:01 AM EDT PROSTATIC STRUCTURE / Unknown 04/07/2017 11:01 AM EDT 04/07/2017 11:01 AM EDT PROSTATIC STRUCTURE / Unknown 04/07/2017 11:01 AM EDT 04/07/2017 11:01 AM EDT Lenore Mcginnis MD PATHOLOGY/CYTOLOGY ORDERABLES [facility] [place] [address] * Specimen to Pathology (NON-OR) (04/07/2017 10:59 AM EDT) AP Specimen 04/07/2017 10:5 9 AM EDT 04/07/2017 10:59 AM EDT Narrative [facility] - 04/07/2017 10:59 AM EDT Specimen requisition ordered. ??Separate Pathology report to follow Lenore Mcginnis MD PATHOLOGY/[place] [address] documented in this encounter Visit Diagnoses Diagnosis Elevated PSA Elevated prostate specific antigen (PSA) documented in this encounter Care Teams Data Processing Operator Relationship Specialty Start Date End Date Reji Adams MD [facility] [place] [place] [address] PCP - General General Internal Medicine 07/13/15 documented as of this encounter
--- OUTSIDE RECORDS SUMMARY | 2024-07-09 11:15 | XMS_ITS | Encounter Summary ---
Author Organization [facility] Address [facility] [place] [address] Care Team Providers Care Voice Systems Engineer Name Role Phone Reji Adams MD Primary Care Provider [phone] Reason for Referral * Diagnostic Test (Routine) - Specialty Diagnoses / Procedures Referred By [facility] Referred To Contact Radiology Diagnoses Right leg pain Procedures MRI Lumbar Spine wwo Contrast Bright Casanova MD [address] [place] [address] [place] [address] Referral ID Status Reason Start Date Expiration Date Visits Requested Visits Authorized [id number] Specialty Service Requested 04/22/2017 04/22/2018 1 1 * Diagnostic Test (Routine) - Closed Specialty Diagnoses / Procedures Referred By [facility] Referred To Contact Radiology Diagnoses Asymmetrical sensorineural hearing loss Procedures MRI Brain wwo Contrast (Generic) Mary Ny MD [facility] [place] [address] [place] [address] Referral ID Status Reason Start Date Expiration Date V isits Requested Visits Authorized [id number] Closed Specialty Service Requested 04/18/2017 04/18/2018 1 1 Reason for Visit * Diagnostic Test (Routine) - Closed Specialty Diagnoses / Procedures Referred By [facility] Referred To Contact Radiology Diagnoses Asymmetrical sensorineural hearing loss Procedures MRI Brain wwo Contrast (Generic) Mary Ny MD [facility] [place] [address] [facility] [place] [address] Referral ID Status Reason Start Date Expiration Date V isits Requested Visits Authorized [id number] Closed Specialty Service Requested 04/18/2017 04/18/2018 1 1 Encounter Details Date Type Department Care Team (Latest Contact Info) Description 04/29/2017 6:51 PM EDT - 04/29/2017 11:59 PM EDT Hospital En[place] [address] Mary Ny MD [facility] [place] [address] Asymmetrical sensorineural hearing loss; Right leg pain Discharge Disposition: Home Social History Tobacco [...] 3 times daily as needed. 03/19/2018 Saw [place] 500 mg capsule Take 500 mg by mouth daily. 03/14/2020 naproxen sodium (ALEVE) 220 mg tablet Take 220 mg by mouth as needed. 01/04/2011 07/09/2017 documented as of this encounter Plan of Treatment Upcoming Encounters Date Type Department Care Team (Late st Contact Info) Description 12/15/2024 11:30 AM EDT Office Visit Gastroenterology at [facility] [place] [address] Charline Ziegler MD [facility] [place] [address] documented as of this encounter Procedures Procedure Name Priority Date/Time Associated Diagnosis Comments MRI LUMBAR SPINE WITH/WO CONTRAST Routine 04/29/2017 8:55 PM EDT Right leg pain MRI BRAIN WWO CONTRAST (GENERIC) Routine 04/29/2017 8:55 PM EDT Asymmetrical sensorineural hearing loss documented in this encounter Results * MRI Lumbar Spine wwo Contrast (04/29/2017 8:55 PM EDT) Anatomical Region Laterality Modality L-spine Magnetic Resonan ce Impressions 04/30/2017 9:34 AM EDT Lumbar spine degenerative and postsurgical changes. The central canal stenosis at L3-L4 is improved. Findings at other levels are similar. Comment: The following findings are so common [...] (64%), disc protrusion (32%), annular fissure (38%). Narrative 04/30/2017 9:34 AM EDT EXAMINATION: MRI LUMBAR SPINE WWO CONTRAST CLINICAL HISTORY: erectile dysfunction, prior lumbar surgery TECHNIQUE: MR of the lumbar spine performed prior to and following intravenous administration of 10 mL Gadavist COMPARISON: 05/03/2016 FINDINGS: Lumbar alignment is unremarkable. There is solid osseous fusion from L4 to S1 with L5 laminectomy. There are surgical changes of L3 laminectomy with some enhancement in the operative bed. No focal, aggressive appearing marrow lesion. Normal-appearing conus terminates at the L1 level. There are a few renal cysts. Visualized retroperitoneal structures are otherwise unremarkable. Findings at specific levels: L1-2: There is mild disc bulging and facet arthropathy with mild caudal neuroforaminal narrowing bilaterally. Findings at this level are similar to the prior study. L2-L3: There is loss of disc height. Endplate osteophyte and facet arthropathy produces moderate right worse left foraminal narrowing. These findings are unchanged. Mild overall central canal narrowing. L3-L4: Compared to the prior study there is no abnormal laminectomy. The central canal stenosis seen on the prior exams: Present. There is moderate left and mild to moderate right foraminal narrowing. The left foraminal narrowing slightly worse on the prior study. L4-L5: This level is fused. No central canal stenosis. There is minor foraminal narrowing, unchanged. L5-S1: This level is fused. No central canal or foraminal stenosis. Procedure Note Ken Hidalgo MD - 04/30/2017 EXAMINATION: MRI LUMBAR SPINE WWO CONTRAST CLINICAL HISTORY: erectile dysfunction, prior lumbar surgery TECHNIQUE: MR of the lumbar spine performed prior to and followingintravenous administration of 10 mL Gadavist COMPARISON: 05/03/2016 FINDINGS: Lumbar alignment is unremarkable. There is solid osseous fusionfrom L4 to S1 with L5 laminectomy. There are surgical changes of L3 laminectomywith some enhancement in the operative bed. No focal, aggressive appearingmarrow lesion. Normal-appearing conus terminates at the L1 level. There are a fewrenal cysts. Visualized retroperitoneal structures are otherwise unremarkable. Findings at specific levels: L1-2: There is mild disc bulging and facet arthropathy with mild caudal neuroforaminal narrowing bilaterally. Findings at this level are similarto the prior study. L2-L3: There is loss of disc height. Endplate osteophyte and facetarthropathy produces moderate right worse left foraminal narrowing. These findingsare unchanged. Mild overall central canal narrowing. L3-L4: Compared to the prior study there is no abnormal laminectomy. Thecentral canal stenosis seen on the prior exams: Present. There is moderate leftand mild to moderate right foraminal narrowing. The left foraminal narrowingslightly worse on the prior study. L4-L5: This level is fused. No central canal stenosis. There is minorforaminal narrowing, unchanged. L5-S1: This level is fused. No central canal or foraminal stenosis. IMPRESSION Lumbar spine degenerative and postsurgical changes. The central canal stenosis at L3-L4 is improved. Findings at other levels aresimilar. Comment: The following findings are so common in people without low backpain that while we report their presence, they must be interpreted with cautionand in context of the clinical situation (Reference- Ankitavik et al, [id number]). Findings: (Prevalence in patients without low back pain), discdegeneration (decreased T2 signal, height loss, bulge) (91%), disc T2-signal loss(83%), disc height loss (56%), disc bulge (64%), disc protrusion (32%), annularfissure (38%). Bright Casanova MD G MRI ORDERABLES * MRI Brain wwo Contrast (Generic) (04/29/2017 8:55 PM EDT) Anatomical Region Laterality Modality Head Magnetic Resonan ce Impressions 04/30/2017 9:15 AM EDT No IAC mass or abnormal enhancement. Narrative 04/30/2017 9:15 AM EDT EXAMINATION: MRI BRAIN WWO CONTRAST (GENERIC) CLINICAL HISTORY: asymmetric sensorineural hearing loss, left ear pain TECHNIQUE: MR the brain with attention to the IACs performed prior to and following intravenous administration of 10 mL Gadavist COMPARISON: CT 05/01/2016, MRA 11/09/2011 FINDINGS: The internal auditory canals are normal bilaterally without IAC mass or abnormal enhancement. There is a cavum septum pellucidum et vergae. Ventricles are normal in size and contour. Diffusion images are normal. Major intracranial flow voids are normal. There is no abnormal enhancement. Procedure Note Ken Hidalgo MD - 04/30/2017 EXAMINATION: MRI BRAIN WWO CONTRAST (GENERIC) CLINICAL HISTORY: asymmetric sensorineural hearing loss, left ear pain TECHNIQUE: MR the brain with attention to the IACs performed prior toand following intravenous administration of 10 mL Gadavist COMPARISON: CT 05/01/2016, MRA 11/09/2011 FINDINGS: The internal auditory canals are normal bilaterally without IACmass or abnormal enhancement. There is a cavum septum pellucidum et vergae. Ventricles are normal in size and contour. Diffusion images are normal.Major intracranial flow voids are normal. There is no abnormal enhancement. IMPRESSION No IAC mass or abnormal enhancement. Mary Ny MD [facility] [place] documented in this encounter Visit Diagnoses Diagnosis Asymmetrical sensorineural hearing loss Sensorineural hearing loss, asymmetrical Right leg pain Pain in limb documented in this encounter Administered Medications Inactive Administered Medications - up to 3 most recent administrations Medication Order MAR Action Action Date Dose Rate Site gadobutrol (GADAVIST) 1 mMol/mL injection 0-20 mL 0-20 mL, Intravenous, ONCE PRN, 1 dose, Starting on Fri04/29/17 at 1924, Until Fri04/29/17 at 5, Per Protocol, Radiology Contrast, Routine Given 04/29/2017 8:55 PM EDT 10 mLs documented in this encounter Care Teams Voice Systems Engineer Relationship Specialty Start Date End Date Reji Adams MD [facility] [place] [place] [address] PCP - General General Internal Medicine 07/13/15 documented as of this encounter
--- OUTSIDE RECORDS SUMMARY | 2024-07-09 11:15 | XMS_ITS | Encounter Summary ---
Author Organization [facility] Address [facility] [place] [address] Care Team Providers Care Pigment Making Supervisor Name Role Phone Reji Adams MD Primary Care Provider [phone] Encounter Details Date Type Department Care Team (Late st Contact Info) Description 04/07/2017 9:30 AM EDT Procedure visit Hematology [place] [address] Tobias Mcginnis MD [facility] [address] Elevated PSA Social History Tobacco Use Types [...] Sign Reading Time Taken Comments Blood Pressure 111/73 04/07/2017 9:32 AM EDT Pulse 73 04/07/2017 9:32 AM EDT Temperature 36.7 ??C (98.1 ??F) 04/07/2017 9:32 AM ED T Respiratory Rate 16 04/07/2017 9:32 AM EDT Oxygen Saturation 100% 04/07/2017 9:32 AM EDT Inhaled Oxygen Concentration - - Weight 97.1 kg (214 lb 1.1 oz) 04/07/2017 9:32 A M EDT Height 181 cm (5' 11.26) 04/07/2017 9:32 AM EDT Body Mass Index 29.64 04/07/2017 9:32 AM EDT documented in this encounter Patient Instructions * Patient Instructions* Omaira Antonio RN - 04/07/2017 9:30 AM EDT PROSTATE BIOPSY DISCHARGE INFORMATION You will get a call next week with your biopsy pathology. Your pathology result may be released to your [facility] account before we have had a chance to contact you. You should feel free to check your [facility] if you would like to see if [...] after these hours, please call the hospital panel machine operator at and ask to have the [...] Progress Notes * Tobias Mcginnis MD - 04/07/2017 9:30 AM EDT Procedure Note Procedure: Transrectal ultrasound and prostate biopsy Surgeon: Tobias Mcginnis Preoperative Diagnosis: Abnormal PSA/Free PSA Post Operative Diagnosis: Successful Biopsy Complications: None Procedure: A time out procedure was performed. It was confirmed the patient had a urinanalysis that did not show evidence of a urinary infection prior to the biopsy. It was confirmed that the patient took Levaquin 500mg po ~ 1 hour ago The TRUS probe was inserted into the rectum and the prostate imaged in the sagittal and transverse dimensions. Prostate volume was 34 cc. The prostate was homogeneous. Prostate calcifications were observed at the junction of the peripheral and transition zones. Hypochoic areas: none Rectum, periprostatic structures, visualized areas of the bladder, vas deferens and seminal vesicles all appeared normal Prostatic anaesthesia was achieved in the standard fashion. A series of prostatic biopsies were obtained from the lateral apex, mid,and base as well as mid sagittal apex, mid and base. Biopsies were obtained from both the right and left side of the prostate. Additional biopsies: none A total of 12 biopsies were obtained. The patient tolerated the procedure without difficulty. I will contact him in about a weeks time with the results. He understands that if he does not hear from me or has any problems to contact my office. Tobias Mcginnis documented in this encounter Plan of Treatment Upcoming Encounters Date Type Department Care Team (Late st Contact Info) Description 12/15/2024 11:30 AM EDT Office [place] [address] Charline Ziegler MD [facility] [place] [address] documented as of this encounter Visit Diagnoses Diagnosis Elevated PSA Elevated prostate specific antigen (PSA) documented in this encounter Administered Medications Inactive Administered Medications - up to 3 most recent administrations Medication Order MAR Action Action Date Dose Rate Site levoFLOXacin (LEVAQUIN) tablet 500 mg 500 mg, Oral, ONCE, 1 dose, On 04/07/17 at 1015, Routine Given 04/07/2017 9:40 AM EDT 500 mg documented in this encounter Care Teams Pigment Making Supervisor Relationship Specialty Start Date End Date Reji Adams MD [facility] [place] [address] PCP - General General Internal Medicine 07/13/15 documented as of this encounter
--- OUTSIDE RECORDS SUMMARY | 2024-07-09 11:15 | XMS_ITS | Encounter Summary ---
Author Organization [facility] Address [facility] [place] [address] Care Team Providers Care Power Lineman Name Role Phone Reji Adams MD Primary Care Provider [phone] Encounter Details Date Type Department Care Team (Late st Contact Info) Description 04/02/2017 Telephone [place] [id number] Tobias Mcginnis MD [facility] [place] [address] Social History Tobacco Use Types Packs/Day Years [...] * Telephone Encounter - Amrita Das - 04/11/2017 4:45 PM EDT Pt called looking for his biopsy results. He can be reached at [phone]. Thank you. * Telephone Encounter - Omaira Antonio RN - 04/03/2017 9:53 AM EDT Spoke with patient. All questions answered. * Telephone Encounter - Mariama Darling M - 04/02/2017 9:37 AM EDT Pt states that he needs Omaira to go over the information for the appointment coming on Saturday 04/07. Please call [phone] documented in this encounter Plan of Treatment Upcoming Encounters Date Type Department Care Team (Late st Contact Info) Description 12/15/2024 11:30 AM EDT Office Visit [place] [address] Charline Ziegler MD [facility] [place] [address] documented as of this encounter Visit Diagnoses Not on filedocumented in this encounter Care Teams Power Lineman Relationship Specialty Start Date End Date Reji Adams MD [facility] [place] [address] PCP - General General Internal Medicine 07/13/15 documented as of this encounter
--- OUTSIDE RECORDS SUMMARY | 2024-07-09 11:15 | XMS_ITS | Encounter Summary ---
Author Organization [place] [address] Care Team Providers Care Multimedia Journalist Name Role Phone Reji Adasm MD Primary Care Provider [phone] Encounter Details Date Type Department Care Team (Latest Contact Info) Description 03/18/2017 8:00 AM EDT - 03/18/2017 11:59 PM EDT Hospital En[place] [address] Hyperinflation of lungs Discharge Disposition: Home Social History Tobacco Use [...] tablet Take 1 tablet by mouth daily. montelukast (SINGULAIR) 10 mg Tablet Take 1 tablet by mouth nightly. 30 tablet 3 02/27/2017 03/24/2017 aspirin 81 mg Tablet, Delayed Release (E.C.) Take 81 mg by mouth daily. 03/17/2023 ibuprofen (ADVIL) 200 mg tablet Take 400 mg by mouth every 6 hours as needed. 05/08/2018 ALPRAZolam (XANAX) 0.25 mg tablet Take 0.25 mg by mouth 3 times daily as needed. 03/19/2018 Saw [place] 500 mg capsule Take 500 mg by mouth daily. 03/14/2020 Mavis Extract 500 mg Cap Take 1 capsule by mouth daily. 03/24/2017 naproxen sodium (ALEVE) 220 mg tablet Take 220 mg by mouth as needed. 01/04/2011 07/09/2017 documented as of this encounter Procedure Notes * Geraldo Gomes Jr., MD - 03/18/2017 11:59 PM EDTAssociated Order(s): PULMONARY FUNCTION TEST Pulmonary Function Testing Spirometry is normal. Diffusing capacity is normal. Oxygen saturation is normal. Geraldo Gomes MD Pulmonary Medicine documented in this encounter Plan of Treatment Upcoming Encounters Date Type Department Care Team (Late st Contact Info) Description 12/15/2024 11:30 AM EDT Office Visit [place] [address] Charline Ziegler MD [facility] [place] [address] documented as of this encounter Procedures Procedure Name Priority Date/Time Associated Diagnosis Comments COMMON PULMONARY FUNCTION TEST Routine 03/21/2017 1:24 PM EDT Hyperinflation of lungs documented in this encounter Results * Pulmonary Function Testing (03/21/2017 1:24 PM EDT) Narrative Geraldo Gomes Jr., MD - 03/21/2017 1:24 PM EDT Geraldo Gomes Jr., MD ? 03/21/2017 ??1:24 PM Pulmonary Function Testing Spirometry is normal. ??Diffusing capacity is normal. ??Oxygen saturation is normal. Geraldo Gomes MD Pulmonary Medicine Law Loja MD PFT ORDERABLES documented in this encounter Visit Diagnoses Diagnosis Hyperinflation of lungs Other symptoms involving respiratory system and chest documented in this encounter Care Teams Multimedia Journalist Relationship Specialty Start Date End Date Reji Adams MD [facility] GENERAL [place] [address] PCP - General General Internal Medicine 07/13/15 documented as of this encounter
--- OUTSIDE RECORDS SUMMARY | 2024-07-09 11:15 | XMS_ITS | Encounter Summary ---
Author Organization [facility] Address [facility] [place] [address] Care Team Providers Care Puller Over Name Role Phone Reji Adams MD Primary Care Provider [phone] Reason for Visit * Reason Comments Constipation Encounter Details Date Type Department Care Team (Late Contact Info) Description 06/18/2017 11:32 AM EST - 06/18/2017 3:51 PM EST [place] [address] Pia Mcclain MD [facility] [place] [address] Constipation, unspecified constipation type Discharge Disposition: Home [...] Sign Reading Time Taken Comments Blood Pressure 102/66 06/18/2017 3:39 PM EST Pulse 83 06/18/2017 11:11 AM EST Temperature 36.4 ??C (97.5 ??F) 06/18/2017 3:40 PM ES T Respiratory Rate 18 06/18/2017 11:11 AM EST Oxygen Saturation 92% 06/18/2017 3:40 PM EST Inhaled Oxygen Concentration - - Weight - - Height - - Body Mass Index - - documented in this encounter Discharge Instructions * Discharge Instructions* Pia Mcclain MD - 06/18/2017 3:39 PM EST Images from the original note were not included. Constipation: Care Instructions Your Care Instructions Constipation means that you have a hard time passing stools (bowel movements). People pass stools from 3 times a day to once every 3 days. What is normal for you may be different. Constipation may occur with pain in the rectum and cramping. The pain may get worse when you try to pass stools. Sometimes there are small amounts of bright red blood on toilet paper or the surface of stools. This is because of enlarged veins near the rectum (hemorrhoids). A few changes in your diet and lifestyle may help you avoid ongoing constipation. Your doctor may also prescribe medicine to help loosen your stool. Some medicines can cause constipation. These include pain medicines and antidepressants. Tell your doctor about all the medicines you take. Your doctor may want to make a medicine change to ease yoursymptoms. Follow-up care is a enrique part of your treatment and safety. Be sure to make and go to all appointments, and call your doctor if you are having problems. It's also a good idea to know your test resultsand keep a list of the medicines you take. How can you care for yourself at home? ?? Drink plenty of fluids, enough so that your urine is light yellow or clear like water. If you have kidney, heart, or liver disease and have to limit fluids, talk with your doctor before you increase the amount of fluids you drink. ?? Include high-fiber foods in your diet each day. These include fruits, vegetables, beans, and whole grains. ?? Get at least 30 minutes of exercise on most days of the week. Walking is a good choice. You alsomay want to do other activities, such as running, swimming, cycling, or playing tennis or team sports. ?? Take a fiber supplement, such as Citrucel or Metamucil, every day. Read and follow all instructions on the label. ?? Schedule time each day for a bowel movement. A daily routine may help. Take your time having your bowel movement. ?? Support your feet with a small step stool when you sit on the toilet. This helps flex your hips and places your pelvis in a squatting position. ?? Your doctor may recommend an blyx-ibu-qjeieen laxative to relieve your constipation. Examples are Milk of Magnesia and MiraLax. Read and follow all instructions on the label. Do not use laxatives on a long-term basis. When should you call for help? Call your doctor now or seek immediate medical care if: ? ?? You have new or worse belly pain. ? ?? You have new or worse nausea or vomiting. ? ?? You have blood in your stools. ?Watch closely for changes in your health, and be sure to contact your doctor if: ? ?? Your constipation is getting worse. ? ?? You do not get better as expected. Where can you learn more? Visit our [employer] information library at [email or web address]. You can also view health information on [employer]ICO, your personal patient account. Log in or sign uptoday. Enter P343 in the search box to learn more about Constipation: Care Instructions. Current as of: October 14, 2016 Content Version: 11.4 ?? [id number] [employer]. Care instructions adapted under license by [facility] [place]. If you have questions about a medical condition or this instruction, always ask your healthcare professional. [employer] disclaims any warranty or liability for your [...] 3 times daily as needed. 03/19/2018 Saw [place] 500 mg capsule Take 500 mg by mouth daily. 03/14/2020 naproxen sodium (ALEVE) 220 mg tablet Take 220 mg by mouth as needed. 01/04/2011 07/09/2017 documented as of this encounter ED Notes * Say Ratliff RN - 06/18/2017 3:[address] negative, to discharge per attending, pt education re miralax, pt eager to depart and to eat. * Say Ratliff RN - 06/18/2017 3:10 PM EST Pt back from CT. * Say Ratliff RN - 06/18/2017 2:[address] is ready for pt. Pt still has 1L of soap suds instilled. Pt option for BM before transport to CT. Volunteer standing by to take pt to CT. Pt showed this RN his BM: watery, brown, pt stated there was some mushy stuff, but not much and nothing hard. Pt off to CT. * Pia Mcclain MD - 06/18/2017 2:38 PM EST Chief Complaint Patient presents with ??? Constipation Patient is a 71 y.o. male presenting with constipation. The history is provided by the patient. Constipation The current episode started 3 to 5 days ago. The onset was gradual. The problem occurs rarely. The problem has been gradually worsening. The patient is experiencing no pain. The stool is described asliquid. Pertinent negatives include no fever, no abdominal pain, no rectal pain, no vomiting, no headaches and no coughing. Diarrhea: loose stools after mag citrate. Urine output has been normal. There were no sick contacts. Recently, medical care has been given by the PCP. Services received include medications given. Allergies Allergen Reactions ??? Penicillins Anaphylaxis Tongue swelling Review of Systems Constitutional: Negative for fever. Eyes: Negative for visual disturbance. Respiratory: Negative for cough and shortness of breath. Gastrointestinal: Positive for constipation. Negative for abdominal pain, rectal pain and vomiting.Diarrhea: loose stools after mag citrate. Genitourinary: Negative for difficulty urinating. Musculoskeletal: Negative for arthralgias. Skin: Negative for color change. Neurological: Negative for headaches. Psychiatric/Behavioral: Negative for agitation. Physical Exam Constitutional: He is oriented to person, place, and time. He appears well- developed. No distress. HENT: Head: Normocephalic and atraumatic. Eyes: Conjunctivae are normal. Neck: Neck supple. Cardiovascular: Normal rate, regular rhythm and normal heart sounds. Exam reveals no gallop and no friction rub. No murmur heard. Pulmonary/Chest: Effort normal and breath sounds normal. No respiratory distress. He has no wheezes. He has no rales. Abdominal: Soft. He exhibits no distension. There is no tenderness. There is no rebound. Genitourinary: Rectum normal. Genitourinary Comments: No stool in rectal vault Musculoskeletal: Normal range of motion. He exhibits no edema. Neurological: He is alert and oriented to person, place, and time. No cranial nerve deficit. Coordination normal. Skin: Skin is warm. No erythema. Procedures MDM Number of Diagnoses or Management Options Constipation, unspecified constipation type: Diagnosis management comments: 71 with a history of BPH presents with constipation for 2 weeks. Patient denies abdominal pain, emesis, fever or other systemic symptoms. Patient reports taking stool softeners without relief of symptoms. He was evaluated by PCP yesterday who prescribed magnesium citrate and he reports taking 2 bottles with subsequent watery stools but no bowel movements. He is clinically well and nontoxic appeari ng with normal vital signs. Exam notable for soft abdomen with mild lower abdominal tenderness to palpation, without stool in rectal vault. Labs notable for normal white blood cell count, renal function, electrolytes. Patient reports small bowel movement after soap suds enema and CT abdomen and pelvis results is negative for acute pathology. I advised follow up with PCP tomorrow and provided return precautions for worsening symptoms or concerns. He expressed understanding and agreement with plan. Amount and/or Complexity of Data Reviewed Clinical lab tests: ordered and reviewed Tests in the radiology section of CPT??: ordered Tests in the medicine section of CPT??: ordered and reviewed Discuss the patient with other providers: yes Risk of Complications, Morbidity, and/or Mortality Presenting problems: moderate Diagnostic procedures: moderate Management options: moderate Patient Progress Patient progress: stable ED Course: ED Course Pia Mcclain MD 06/18/17 1541 * Say Ratliff RN - 06/18/2017 2:00 PM EST Called re CT, CT will take pt shortly. documented in this encounter Miscellaneous Notes * ED Triage - Alfreda Garcia RN - 06/18/2017 11:09 AM EST Pt reports constipation with last BM 1.5 weeks ago, reports clear water coming out of rectum, per xray he has a blockage. Pt denies any nausea and decrease in oral intake. Pt denies any abd distention and no pain. Pt reports passing flatus documented in this encounter Plan of Treatment Upcoming Encounters Date Type Department Care Team (Late st Contact Info) Description 12/15/2024 11:30 AM EDT Office Visit [place] [address] Charline Ziegler MD [facility] [place] [address] documented as of this encounter Procedures Procedure Name Priority Date/Time Associated Diagnosis Comments CT ABDOMEN AND PELVIS W CONTRAST STAT 06/18/2017 3:01 PM EST HEMOGRAM STAT 06/18/2017 12:00 PM EST DIFFERENTIAL, AUTOMATED STAT 06/18/2017 12:00 PM EST GOLD TUBE HOLD STAT 06/18/2017 12:00 PM EST BLUE TUBE HOLD STAT 06/18/2017 12:00 PM EST CBC (WITH DIFF) STAT 06/18/2017 12:00 PM EST LIPASE STAT 06/18/2017 12:00 PM EST HEPATIC FUNCTION PANEL STAT 06/18/2017 12:00 PM EST BASIC METABOLIC PANEL STAT 06/18/2017 12:00 PM EST documented in this encounter Results * CT Abdomen & Pelvis w Contrast (06/18/2017 3:01 PM EST) Anatomical Region Laterality Modality Abdomen, Pelvis Computed Tomogra phy Impressions 06/18/2017 3:07 PM EST No acute findings. No visible etiology for patient's symptoms. Narrative 06/18/2017 3:07 PM EST EXAMINATION: ??CT ABDOMEN AND PELVIS W CONTRAST CLINICAL HISTORY: ??abdominal pain, constipation TECHNIQUE: Helical CT of the abdomen and pelvis was performed following the intravenous administration of contrast. 110 cc of Omnipaque 350 was given. COMPARISON: ??None FINDINGS: Lower chest: Normal. Liver: Normal size and attenuation without lesions. Bile ducts: Nondilated. Gallbladder: No calcified gallstones. Normal caliber wall. Pancreas: Normal attenuation without ductal dilatation. Spleen: Normal. Adrenals: Normal. Kidneys: Centimeters simple cortical cyst RIGHT kidney. Smaller, RIGHT millimeter indeterminate cortical hypodensity. No renal collecting system obstruction bilaterally. Vasculature: No aneurysm. Lymph Nodes: No enlarged lymph nodes. Bowel: No small bowel obstruction. No areas of abnormal small bowel wall thickening. The terminal ileum is normal. The ascending colon this is fluid-filled. Distal to this the colon is decompressed. Peritoneum and mesentery: No ascites, free air, or loculated fluid collection. No mesenteric inflammation. Abdominal wall: Normal. Urinary Bladder: Limited evaluation Reproductive organs: Normal. Osseous structures: No suspicious lesions. Procedure Note Seth Chaudhari MD - 06/18/2017 EXAMINATION: CT ABDOMEN AND PELVIS W CONTRAST CLINICAL HISTORY: abdominal pain, constipation TECHNIQUE: Helical CT of the abdomen and pelvis was performed followingthe intravenous administration of contrast. 110 cc of Omnipaque 350 wasgiven. COMPARISON: None FINDINGS: Lower chest: Normal. Liver: Normal size and attenuation without lesions. Bile ducts: Nondilated. Gallbladder: No calcified gallstones. Normal caliber wall. Pancreas: Normal attenuation without ductal dilatation. Spleen: Normal. Adrenals: Normal. Kidneys: Centimeters simple cortical cyst RIGHT kidney. Smaller, RIGHT millimeter indeterminate cortical hypodensity. No renal collectingsystem obstruction bilaterally. Vasculature: No aneurysm. Lymph Nodes: No enlarged lymph nodes. Bowel: No small bowel obstruction. No areas of abnormal small bowel wall thickening. The terminal ileum is normal. The ascending colon this is fluid-filled. Distal to this the colon is decompressed. Peritoneum and mesentery: No ascites, free air, or loculated fluidcollection. No mesenteric inflammation. Abdominal wall: Normal. Urinary Bladder: Limited evaluation Reproductive organs: Normal. Osseous structures: No suspicious lesions. IMPRESSION No acute findings. No visible etiology for patient's symptoms. 3:07 PM Pia Mcclain MD [facility] CT ORDERABLES * Gold Tube HOLD (06/18/2017 12:00 PM EST) Pathologist [facility] Gold Hold Sample in lab. [facility] Blood specimen (specimen) Venous Draw / Unknown 06/18/2017 12:00 PM EST 06/18/2017 12:25 PM EST Pia Mcclain MD CHEMISTRY ORDERABLES [facility] [place] [address] * Blue Tube HOLD (06/18/2017 12:00 PM EST) Blue Hold Sample in lab. [facility] Blood specimen (specimen) Venous Draw / Unknown 06/18/2017 12:00 PM EST 06/18/2017 12:19 PM EST Pia Mcclain MD [place] [address] * Differential, Automated (06/18/2017 12:00 PM EST) Neutrophil % 64.7 % [facility] Neutrophil Absolute 5.75 1.70 - 6.10 x10(3)/[facility] Lymph % 27.7 % [facility] Lymphocytes Abs 2.5 0.9 - 3.2 x10(3)/[facility] Monocyte % 6.1 % [facility] Monocyte Abs 0.5 0.3 - 0.9 x10(3)/[facility] Eos % 0.6 % [facility] Eosinophils Abs 0.0 0.0 - 0.4 x10(3)/[facility] Basophil % 0.7 % [facility] Baso Absolute 0.1 0.0 - 0.1 x10(3)/[facility] Immature Gran % 0.20 % [facility] Comment: Immature granulocytes(IG's)percentage and absolute count will include metamyelocytes, myelocytes, and promyelocytes. Blood smears from CBCs yielding IG's will be scanned manually for concordance. If this scan disagrees with the automated IG or if promyelocytes are noted, a manual differential will be performed. Immature Gran Absolute 0.02 0.00 - 0.04 x10(3)/[facility] Blood specimen (specimen) 06/18/2017 12:00 PM EST 06/18/2017 12:17 PM EST Narrative Resulting Agency Comment Spec In Lab Pia Mcclain MD HEMATOLOGY ORDERABLE S [facility] [place] [address] * Hemogram (06/18/2017 12:00 PM EST) White Blood Cell 8.9 4.0 - 9.5 x10(3)/[facility] Red Blood Cell 5.45 4.58 - 5.54 x10(6)/[facility] Hemoglobin 16.5 13.7 - 16.5 gm/dL [facility] Hematocrit 48.4 40.5 - 48.5 % [facility] Mean Cell Volume 88.8 82.9 - 93.1 fL [facility] Mean Cell Hemoglobin 30.3 27.5 - 32.1 pg [facility] Mean Cell Hemoglobin Concentration 34.1 32.0 - 35.7 gm/dL [facility] Platelet 218 145 - 357 x10(3)/[facility] RDW Standard Deviation 42.6 36.0 - 45.0 [facility] RDW coefficient of variation 13.0 11.4 - 13.8 % [facility] Mean Platelet Volume 9.5 7.6 - 12.9 [facility] NRBC% auto 0.0 % [facility] NRBC Absolute 0.000 0.000 - 0.000 x10(3)/[facility] Blood specimen (specimen) 06/18/2017 12:00 PM EST 06/18/2017 12:17 PM EST Narrative Resulting Agency Comment Spec In Lab Pia Mcclain MD HEMATOLOGY ORDERABLE S [facility] [place] [address] * (ABNORMAL) Lipase (06/18/2017 12:00 PM EST) Lipase 77(H) 0 - 60 unit/L [facility] Blood specimen (specimen) 06/18/2017 12:00 PM EST 06/18/2017 12:17 PM EST Narrative Resulting Agency Comment Spec In Lab Pia Mcclain MD CHEMISTRY ORDERABLES Performing Organization Address [facility] Co de Phone Number [facility] [place] [address] * Hepatic Function Panel (06/18/2017 12:00 PM EST) [facility] Protein, Total 7.6 6.1 - 8.0 gm/dL [facility] Albumin 4.9 3.2 - 5.2 gm/dL [facility] Aspartate Aminotransferase 22 0 - 39 unit/L [facility] Alanine Aminotransferase 14 0 - 55 unit/L [facility] Alkaline Phosphatase 54 40 - 120 unit/L [facility] Bilirubin, Total 1.0 0.2 - 1.3 mg/dL [facility] Bilirubin, Direct 0.2 0.0 - 0.3 mg/dL [facility] Blood specimen (specimen) 06/18/2017 12:00 PM EST 06/18/2017 12:17 PM EST Narrative Resulting Agency Comment Spec In Lab Pia Mcclain MD CHEMISTRY ORDERABLES Performing Organization Address [facility] Co de Phone Number [facility] [place] [address] * (ABNORMAL) Basic Metabolic Panel (non-fasting) (06/18/2017 12:00 PM EST) [facility] Glucose 80 65 - 199 mg/dL [facility] Comment:Diabetes: >=200 mg/d L plus symptoms Blood Urea Nitrogen 11 10 - 20 mg/dL [facility] Creatinine 1.07 0.80 - 1.50 mg/dL [facility] Sodium 140 135 - 145 mmol/L [facility] Potassium 4.0 3.5 - 5.0 mmol/L [facility] Comment: Please note: ??Patients with WBC >100,000 may have falsely elevated Potassium levels. ??For accurate Potassium quantification in these patients send serum separator tube (gold top) for subsequent determinations. ??Contact the Clinical Chemistry Laboratory if there are any questions. Chloride 98 98 - 107 mmol/L [facility] Carbon Dioxide 26 22 - 31 mmol/L [facility] Anion Gap 16(H) 5 - 15 mmol/L [facility] Calcium 9.8 8.5 - 10.5 mg/dL [facility] Est Glomerular Filtration Rate >60 >=60 [facility] Comment: The reported eGFR should be multiplied by 1.2 for patients. The MDRD is not an appropriate measure of renal function for patients with body mass extremes or in patients with acute kidney failure. http://[employer]/DHnkdep http://[employer]/DHMCnkf Blood specimen (specimen) 06/18/2017 12:00 PM EST 06/18/2017 12:17 PM EST Narrative Resulting Agency Comment Spec In Lab Pia Mcclain MD CHEMISTRY ORDERABLES [facility] [place] [address] documented in this encounter Visit Diagnoses Diagnosis Constipation, unspecified constipation type documented in this encounter Administered Medications Inactive Administered Medications - up to 3 most recent administrations Medication Order MAR Action Action Date Dose Rate Site iohexol (OMNIPAQUE) 350 mg/mL solution 0-200 mL 0-200 mL, Intravenous, ONCE PRN, 1 dose, Starting on Fri06/18/17 at 1442, Until Fri06/18/17 at 1442, Per Protocol, Warning Vesicant/Irritant Medication , Radiology Contrast, Routine Given 06/18/2017 2:42 PM EST 110 mLs documented in this encounter Active and Recently Administered Medications Times are shown in EST. PRN Medication Order 06/16/2017 06/17/2017 06/18/2017 iohexol (OMNIPAQUE) 350 mg/mL solution 0-200 mL (COMPLETED) 0-200 mL, Intravenous, ONCE PRN, 1 dose, Starting on Fri06/18/17 at 1442, Until Fri06/18/17 at 1442, Per Protocol, Warning Vesicant/Irritant Medication , Radiology Contrast, Routine 1442 (Given - Provid er: Nicanor Tay) documented in this encounter Care Teams Puller Over Relationship Specialty Start Date End Date Reji Adams MD [facility] GENERAL [place] [address] PCP - General General Internal Medicine 07/13/15 documented as of this encounter
--- OUTSIDE RECORDS SUMMARY | 2024-07-09 11:15 | XMS_ITS | Encounter Summary ---
Author Organization [facility] Address [facility] [place] [address] Care Team Providers Care Electric Switch Repairer Name Role Phone Reji Adams MD Primary Care Provider [phone] Reason for Visit * Reason Comments Left Shoulder Pain Encounter Details Date Type Department Care Team (Late st Contact Info) Description 05/13/2017 5:30 PM EDT [place] [address] Abbie Butcher PA [facility] [place] [address] Right arm numbness; Chronic left shoulder pain; Arthritis of right elbow Social History Tobacco Use Types Packs/Day Years [...] Sign Reading Time Taken Comments Blood Pressure 108/72 05/13/2017 5:05 PM EDT Pulse 72 05/13/2017 5:05 PM EDT Temperature - - Respiratory Rate - - Oxygen Saturation - - Inhaled Oxygen Concentration - - Weight 97.1 kg (214 lb) 05/13/2017 5:05 PM EDT Height 179.1 cm (5' 10.5) 05/13/2017 5:05 PM ED T Body Mass Index 30.27 05/13/2017 5:05 PM EDT documented in this encounter Progress Notes * Abbie Butcher PA - 05/13/2017 5:30 PM EDT PATIENT NAME: Ken Mckeon AGE: 71 y.o. MR#: [id number] DATE OF VISIT: 05/13/2017 DATE OF INJURY/ONSET: Chronic STAFF: Dr. Perkins CHIEF COMPLAINT: follow up for left shoulder pain, right elbow pain and hand numbness HISTORY OF PRESENT ILLNESS: Mr. Mckeon is a 71 y.o. year old male who comes into clinic today for follow up regarding the left shoulder and right elbow. I last saw this patient in 2015. We have been following him for multiple upper extremity complaints. He had an MRI of the left shoulder in 2013 which showed some calcific tendinopathy and partial-thickness rotator cuff fraying, but no large full-thickness rotator cuff tears. He has had subacromial cortisone injections with some transient improvement. He has not had any new injuries to the left shoulder, but has started to notice some recurrent anterior shoulder pain. He has had bilateral shoulder surgeries in the past and is questioning whether additional surgery for his left shoulder would be of benefit. In addition to his shoulder complaints he also has been struggling with right arm numbness. He had a C5-6 fusion and continued to have numbness into his thumb, index, and long fingers. At one point he had an MRI of his right elbow and was found to have some signal changes around the cubital tunnel. He has had extensive workup in neurology. His most recent nerve conduction studies were from September 2016. He continues to have findings consistent with median and ulnar neuropathy bilaterally, but it was not felt that there were any progressive cervical radiculopathy findings. He had a revision carpal tunnel release, but did not feel that this helped with his hand numbness. Dr. Perkins has evaluated his elbow and while he had some diagnostic findings to suggest ulnar nerve involvement, his clinical exam was not consistent with an ulnar neuropathy. He feels that his right hand numbness continues to persist, but he has started to notice more pain in his right elbow. His MRI showed that he had extensive arthritic changes in the elbow. He has not had any cortisone injections for the elbow. He states that he had an injection for hisspine and had some improvement in his hand symptoms, but at his last spine follow-up it was not felt that any additional surgery for his neck would be necessary. PHYSICAL EXAM: Mr. Mckeon is alert and oriented. He is in no acute discomfort and is resting comfortably in the exam room. Inspection: No erythema, ecchymosis, or swelling over the right elbow, wrist, and hand. Palpation: He has some tenderness over the left acromioclavicular joint. He also has pain over the anterior subacromial space and proximal biceps. At the right elbow he has pain over the radiocapitellar joint line as well as over the cubital tunnel. There is no palpable ulnar nerve subluxation. He has noticed some pain over the thenar aspect of his right hand. There is no triggering of the digits. ROM/Strength: He is able to perform active forward flexion with the left shoulder to 165??. His external rotation is to 60??, internal rotation behind his back was not tested, but is painful. He has 5/5 rotator cuff strength in all planes, but has some increased pain with resisted range of motion. He is lacking about 5?? of right elbow extension, but has near full elbow flexion. He denies having any reproducible locking or catching in the elbow, but he feels that his range of motion is blocked when attempting to perform extension. Wrist and finger range of motion remains grossly intact. No significant intrinsic atrophy is noted in the right hand. He has intact pinch strength. Orthopedic testing: Positive impingement testing for the left shoulder. Positive Tinel's over the right cubital tunnel, negative elbow flexion test. Neurovascular: He has diminished sensation in the thumb, index, and long fingers of the right hand.He has noticed some slight numbness in the small and ring fingers, but his symptoms are is not as pronounced here. He also has noticed some mild numbness in the left median distribution. Hands are well perfused. DIAGNOSTIC STUDIES: X-rays of the left shoulder were repeated today and were personally reviewed. There is evidence of acromioclavicular joint arthritis. He also has some mild glenohumeral joint space narrowing. His previous left shoulder MRI from 2013 was also reviewed and showed no full-thicknessrotator cuff tear. There was evidence of biceps tendinopathy in addition to his rotator cuff tendinopathy and partial fraying. We also reviewed his elbow MRI from September 2016. His most recent nerve conduction study showed a right median motor latency of 4.1 ms and a left median motor latency of 5.1 ms. He had non-recordable ulnar sensory latencies with additional slowing of the motor latencies consistent with ulnar neuropathy at the elbow. There were no EMG changes to suggest any chronic or worsening cervical radiculopathies. ASSESSMENT: Left shoulder pain related to rotator cuff tendinopathy, biceps tendinopathy, and arthritic changes at the acromioclavicular and glenohumeral joints, right elbow pain and stiffness with underlying arthritis, chronic right hand numbness in the setting of median and ulnar neuropathy plus history of cervical radiculopathy PLAN: We discussed treatment options for his left shoulder and right elbow and hand. Since it has been several years since his last shoulder MRI recommended repeating this to evaluate for any progressive rotator cuff tearing. If his rotator cuff remains intact he could consider a repeat subacromialinjection if he finds that these provide adequate relief. If it appears that he has more of a full-thickness rotator cuff tear, or if he does not feel that subacromial injections were helpful, left shoulder arthroscopy would potentially be an option. The recovery time frame would be dependent on whether he would require a rotator cuff repair. He has noticed some increased pain in the right elbow.He is bothered more by his elbow pain as opposed to his right hand numbness. I recommended that he obtain a fluoroscopy guided injection into the right elbow to help determine whether his pain is related to his underlying arthritis. If he has transient relief after his injection we may need to do additional imaging of the elbow to determine whether any surgery would be of benefit to address his el bow arthritis. His clinical exam is not entirely consistent with cubital tunnel syndrome, but he does have some diminished sensation in his ulnar digits. It is unclear whether cubital tunnel decompression would be of benefit for his hand numbness, but we can revisit this after we reevaluate his elbow after his injection. He will return for follow up in [place] team clinic after his left shoulder MRIand right elbow injection. The patient understands to contact us if they have any other questions or concerns. The above documentation was completed using [employer] Mobile voice recognition software. documented in this encounter Plan of Treatment Upcoming Encounters Date Type Department Care Team (Late st Contact Info) Description 12/15/2024 11:30 AM EDT Office Visit Gastroenterology at [facility] [place] [address] Charline Ziegler MD [facility] [place] [address] documented as of this encounter Visit Diagnoses Diagnosis Right arm numbness Disturbance of skin sensation Chronic left shoulder pain Pain in joint, shoulder region Arthritis of right elbow Unspecified arthropathy, upper arm documented in this encounter Care Teams Electric Switch Repairer Relationship Specialty Start Date End Date Reji Adams MD [facility] [place] [address] PCP - General General Internal Medicine 07/13/15 documented as of this encounter
--- OUTSIDE RECORDS SUMMARY | 2024-07-09 11:15 | XMS_ITS | Encounter Summary ---
Author Organization [facility] [place] [address] Care Team Providers Care Venereal Disease Control Head Name Role Phone Reji Adams MD Primary Care Provider [phone] Encounter Details Date Type Department Care Team (Late st Contact Info) Description 03/06/2017 Telephone Internal Medicine at [place] [id number] Tiago Jerome MD [facility] [place] [address] Social History Tobacco Use Types Packs/Day Years [...] * Telephone Encounter - Tiago Jerome - 03/06/2017 5:05 PM EDT Called pt to discuss finding of hyperinflation on CXR. He had some relief the first 2 days taking montelukast, but that seems to have worn off and he continues to have some dyspnea. He is a nonsmoker. Ordered PFTs to further investigate the etiology of his hyperinflation, pt amenable to this. Tiago Jerome MD PGY-1, Internal Medicine documented in this encounter Plan of Treatment Upcoming Encounters Date Type Department Care Team (Late st Contact Info) Description 12/15/2024 11:30 AM EDT Office [place] [address] Charline Ziegler MD [facility] [place] [address] documented as of this encounter Results * Pulmonary Function Testing [...] Other symptoms involving respiratory system and chest Hyperinflation of lungs Other symptoms involving respiratory system and chest documented in this encounter Care Teams Venereal Disease Control Head Relationship Specialty Start Date End Date Reji Adams MD [facility] [place] [address] PCP - General General Internal Medicine 07/13/15 documented as of this encounter
--- OUTSIDE RECORDS SUMMARY | 2024-07-09 11:15 | XMS_ITS | Encounter Summary ---
Author Organization [facility] [place] [address] Care Team Providers Care Bow Machine Operator Name Role Phone Reji Adams MD Primary Care Provider [phone] Encounter Details Date Type Department Care Team (Late st Contact Info) Description 06/07/2017 [place] [phone] Ramez Lerma MD [facility] [place] [address] Social History Tobacco Use Types Packs/Day Years [...] encounter Miscellaneous Notes * Telephone Encounter - Ramez Cheney MD - 06/07/2017 11:54 AM EST Ken Mckeon is 71 year old male about 3 weeks out after prostate biopsy. He is constipated and wanted to know if he can have a suppository. I told him yes. documented in this encounter Plan of Treatment Upcoming Encounters Date Type Department Care Team (Late st Contact Info) Description 12/15/2024 11:30 AM EDT Office [place] [address] Charline Ziegler MD [facility] [place] [address] documented as of this encounter Visit Diagnoses Not on filedocumented in this encounter Care Teams Bow Machine Operator Relationship Specialty Start Date End Date Reji Adams MD [facility] [place] [address] PCP - General General Internal Medicine 07/13/15 documented as of this encounter
--- OUTSIDE RECORDS SUMMARY | 2024-07-09 11:15 | XMS_ITS | Encounter Summary ---
Author Organization [facility] [place] [address] Care Team Providers Care Filter Washer And Presser Name Role Phone Reji Adams MD Primary Care Provider [phone] Reason for Visit * Reason Onset Date Comments Other 03/14/2017 Encounter Details Date Type Department Care Team (Late st Contact Info) Description 03/14/2017 Telephone Internal Medicine at [address] [address] Alexis Kate Other Social History Tobacco Use Types Packs/Day [...] Telephone Encounter - Amrita Rodriguez RN - 03/14/2017 4:01 PM EDT Patient call transferred to Pulmonology. * Telephone Encounter - Alexis Kate - 03/14/2017 3:43 PM EDT Message: Patient is calling to check the status of the order for Pulmonary Function Testing. Pleasecall back. Caller and relationship (if other than patient-full name): Self Best time to call back: any Ok to leave a message: [yes] Nurse contacted via: Message: x documented in this encounter Plan of Treatment Upcoming Encounters Date Type Department Care Team (Late st Contact Info) Description 12/15/2024 11:30 AM EDT Office Visit [place] [address] Charline Ziegler MD [facility] [place] [address] documented as of this encounter Visit Diagnoses Not on filedocumented in this encounter Care Teams Filter Washer And Presser Relationship Specialty Start Date End Date Reji Adams MD [facility] [place] [address] PCP - General General Internal Medicine 07/13/15 documented as of this encounter
--- OUTSIDE RECORDS SUMMARY | 2024-07-09 11:15 | XMS_ITS | Encounter Summary ---
Author Organization [facility] [place] [address] Care Team Providers Care Oracle Database Analyst Name Role Phone Reji Adams MD Primary Care Provider [phone] Reason for Referral * Diagnostic Test (Routine) - Closed Specialty Diagnoses / Procedures Referred By Duglas arizmendi Referred To Contact Radiology Diagnoses Asymmetrical sensorineural hearing loss Procedures MRI Brain wwo Contrast (Generic) Mary Ny MD [facility] [place] [address] [place] [address] Referral ID Status Reason Start Date Expiration Date V isits Requested Visits Authorized [id number] Closed Specialty Service Requested 04/18/2017 04/18/2018 1 1 Reason for Visit * Reason Comments Follow-up otalgia of the left ear/pain ,goes from the back of the ear and into the front and at times into the tenriism/pt has alot of trouble breathing thru the nose,no allergies just a nuissance Encounter Details Date Type Department Care Team (Latest Contact Info) Description 04/18/2017 4:00 PM EDT Office [place] [address] Mary Ny MD [facility] [place] [address] Asymmetrical sensorineural hearing loss; Otalgia, left Social History Tobacco Use Types [...] - - Weight 97.1 kg (214 lb 1.6 oz) 04/18/2017 3:53 P M EDT Height 179.1 cm (5' 10.5) 04/18/2017 3:53 PM ED T Body Mass Index 30.29 04/18/2017 3:53 PM EDT documented in this encounter Progress Notes * Mary Ny MD - 04/18/2017 4:[address] [facility] Otolaryngology - Head and Neck Surgery Mary Ny MD 04/18/17 4:11 PM [place], [place] [address] Office Patient Name: Ken Mckeon Date of : 1945 PCP: Reji Adams MD Chief Complaint: f/u left otalgia History of Present Illness: Ken Mckeon is a 71 y.o. year old male seen in follow up. She has been previously evaluated by myself as well as catheter [place]. He has been having issues with left-sided otalgia that has been intermittent. He also has a history of left asymmetric sensorineural hearing loss and a CT scan of thetemporal bone did not demonstrate any IAC abnormality. He reports pain predominantly over the ear as well as behind the ear and up towards his forehead at times. Sometimes this can also extend down to his jaw. We felt last time that due to his unremarkable workup that this was possibly due to a TMJdisorder and recommended neurosurgery evaluation for this. Unfortunately the patient does not have dental insurance so was unable to see a dentist or an oral surgeon in regards to this. He returns today noticing continued symptoms. No ringing in the ear. No vertigo. No drainage from the ear. Otherwise doing okay. 10 point Review of Systems was normal [...] F41.0 ??? Otalgia of left ear H92.02 Current Outpatient Prescriptions on File Prior to Visit Medication Sig Dispense Refill ??? pravastatin (PRAVACHOL) 20 mg Tablet Take 1 tablet by mouth daily. 90 tablet 3 ??? aspirin 81 mg Tablet, Delayed Release (E.C.) Take 81 mg by mouth daily. ??? ibuprofen (ADVIL) 200 mg tablet Take 400 mg by mouth every 6 hours as needed. ??? ALPRAZolam (XANAX) 0.25 mg tablet Take 0.25 mg by mouth 3 times daily as needed. ??? multivitamin (THERAGRAN) tablet Take 1 tablet by mouth daily. ??? Saw [place] 500 mg capsule Take 500 mg by mouth daily. ??? naproxen sodium (ALEVE) 220 mg tablet Take 220 mg by mouth as needed. No current facility-administered medications on file prior to visit. Allergies: Penicillins Surgical History: Past Surgical History: Procedure Laterality Date ??? CREATED BY INTERFACE Past surg hx. Procedure Date: 09/19/2010 ??? PRO COLONOSCOPY, DIAGNOSTIC 09/07/2013 COLONOSCOPY, DIAGNOSTIC performed by Ximena Gu MD at [facility] ENDOSCOPY ??? PRO LIGATE/STRIP LONG SAPH VEIN BELW SEP-FEM JUNC 06/02/2012 LIGATION\DIV\STRIP GREATER SAPHENOUS VEIN performed by BEATRICE RODRÍGUEZ at [facility] MAIN OR ??? PRO PHLEB VEINS - EXTREM - TO 20 06/02/2012 STAB PHLEBECTOMY KARLI VEINS, EXTREMITY 10-20 INCISIONS-SANTI performed by BEATRICE RODRÍGUEZ at [facility] MAIN OR Family and Social History Family History: Family History Problem Relation Age of Onset ??? Cancer Mother bone ??? Diabetes Father ??? Cancer Father testicular Social History: [place] [address] Social History Social History ??? Marital status: Spouse name: N/A ??? Number of children: N/A ??? Years of education: N/A Occupational History ??? retired Social History Main Topics ??? Smoking status: Never Smoker ??? Smokeless tobacco: Current User Types: Chew Comment: 3 cans/ week. ??? Alcohol use 0.0 - 0.6 oz/week 0 - 1 Cans of beer per week ??? Drug use: No ??? Sexual activity: Yes Partners: Female Other Topics Concern ??? Not on file Social History Narrative Physical Exam Temperature: Heart Rate: Blood Pressure: [...] ear canal are without deformity. Tympanic membranes clear bilaterally with normal mobility on pneumatic otoscopy. Hearing is grossly normal. Nose: External nose [...] are soft, non tender, without palpable masses. Left TMJ grinding was noted with some tenderness over the masseter muscle on the left side. Neck: Symmetric. No scars, palpable masses, or crepitus. Midline trachea. Thyroid normal in size, non tender, no palpable mass. Lymphatic: no palpable cervical lymphadenopathy. Pulmonary: Breathing comfortably. Symmetric chest expansion without use of accessory muscles or retraction. Skin: Good skin turgor, no pallor, no icterus. Extremities: No gross deformities, no peripheral edema. ASSESSMENT & RECOMMENDATIONS Ken Mckeon is a 71 y.o. 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 After reviewing his history I did notice though that the MRI scan of the brain due to the asymmetric sensorineural hearing loss was not performed. He does have a CT scan of the temporal bone that is normal but isnot the study of choice to rule out acoustic neuroma. For this reason the MRI scan of the brain hasbeen reordered to rule out acoustic neuroma. This could also also possibly be helpful in evaluatingthe TMJ as well on that side but he would still need an oral surgeon for full assessment and treatment. Recommendations: 1. Will obtain MRI of the brain due to asymmetric hearing loss 2. Will contact patient once MRI is done to review the results. Mary Ny MD Otolaryngology - Head and Neck Surgery 04/18/17 4:11 PM documented in this encounter Plan of Treatment Upcoming Encounters Date Type Department Care Team (Late st Contact Info) Description 12/15/2024 11:30 AM EDT Office Visit Gastroenterology at [facility] [place] [address] Charline Ziegler MD [facility] [place] [address] documented as of this encounter Results * MRI Brain wwo Contrast (Generic) (04/29/2017 [...] mass or abnormal enhancement. Mary Ny MD IMG MRI ORDERABLES documented in this encounter Visit Diagnoses Diagnosis Asymmetrical sensorineural hearing loss Sensorineural hearing loss, asymmetrical Otalgia, left Asymmetrical sensorineural hearing loss Sensorineural hearing loss, asymmetrical Right leg pain Pain in limb documented in this encounter Care Teams Oracle Database Analyst Relationship Specialty Start Date End Date Reji Adams MD [facility] GENER[place] [address] PCP - General General Internal Medicine 07/13/15 documented as of this encounter
--- OUTSIDE RECORDS SUMMARY | 2024-07-09 11:15 | XMS_ITS | Encounter Summary ---
Author Organization Formerly [facility] Address [facility] [place] [address] Care Team Providers Care Education Program Manager Name Role Phone Reji Adams MD Primary Care Provider Encounter Details Date Type Department Care Team (Latest Contact Info) Description 06/17/2017 11:58 AM EST - 06/17/2017 11:59 PM [facility] Hospital Encounter XRay at [address] [place] [address] Beckie Mathews, MARYBEL [facility] [place] [address] Constipation, unspecified constipation type Discharge Disposition: Home [...] 3 times daily as needed. 03/19/2018 Saw Everett 500 mg capsule Take 500 mg by mouth daily. 03/14/2020 naproxen sodium (ALEVE) 220 mg tablet Take 220 mg by mouth as needed. 01/04/2011 07/09/2017 documented as of this encounter Plan of Treatment Upcoming Encounters Date Type Department Care Team (Late st Contact Info) Description 12/15/2024 11:30 AM EDT Office Visit [place] [address] Charline Ziegler MD [facility] [place] [place] [address] documented as of this encounter Procedures Procedure Name Priority Date/Time Associated Diagnosis Comments XR ABDOMEN 1 VIEW Routine 06/17/2017 12: 27 PM EST Constipation, unspecified constipation type documented in this encounter Results * XR Abdomen 1 view (Generic) (06/17/2017 12:27 PM EST) Anatomical Region Laterality Modality Abdomen N/A Digital Radiogra phy Impressions 06/17/2017 12:31 PM EST Moderate fecal load in the left hemicolon and rectum. Narrative 06/17/2017 12:31 PM EST EXAMINATION: XR ABDOMEN 1 VIEW (GENERIC) CLINICAL HISTORY: constipation for over 2 weeks despite laxatives TECHNIQUE: Single AP supine abdominal radiograph COMPARISON: CT abdomen and pelvis August 31, 2013 FINDINGS: No free intraperitoneal air is seen, [...] joint. Bilateral hip osteoarthropathy is partially visualized. Procedure Note Anmol Chavira MD - 06/17/2017 EXAMINATION: XR ABDOMEN 1 VIEW (GENERIC) CLINICAL HISTORY: constipation for over 2 weeks despite laxatives TECHNIQUE: Single AP supine abdominal radiograph COMPARISON: CT abdomen and pelvis August 31, 2013 FINDINGS: No free intraperitoneal air is seen, evaluation is limited by the supine positioning of the patient. Air is seen in the nondistended stomach, loopsof small bowel and throughout the colon to the rectum. Moderate fecal load inthe left hemicolon and rectum. No pneumatosis or portal venous gas. Noradiodense urolithiasis. Multilevel degenerative disc disease changes of the lumbarspine. Posterior decompression at L4-L5. Fusion at the left sacroiliac joint.Bilateral hip osteoarthropathy is partially visualized. IMPRESSION Moderate fecal load in the left hemicolon and rectum. Beckie Mathews APRN IMG DX ORDERABLES documented in this encounter Visit Diagnoses Diagnosis Constipation, unspecified constipation type documented in this encounter Care Teams Education Program Manager Relationship Specialty Start Date End Date Reji Adams MD [facility] [place] [address] PCP - General General Internal Medicine 07/13/15 documented as of this encounter
--- OUTSIDE RECORDS SUMMARY | 2024-07-09 11:15 | XMS_ITS | Encounter Summary ---
Author Organization [facility] Address [facility] [place] [address] Care Team Providers Care Metal Work Duct Installer Name Role Phone Reji Adams MD Primary Care Provider [phone] Reason for Visit * Reason Comments Constipation Over 1.5 weeks. Encounter Details Date Type Department Care Team (Late st Contact Info) Description 06/17/2017 1:20 PM EST Office Visit Internal Medicine at [address] [address] Beckie Mathews, MARYBEL [facility] [place] [address] Acute constipation Social History Tobacco Use Types Packs/Day [...] Sign Reading Time Taken Comments Blood Pressure 112/78 06/17/2017 1:03 PM EST Pulse 79 06/17/2017 1:03 PM EST Temperature 36.6 ??C (97.9 ??F) 06/17/2017 1:03 PM ES T Respiratory Rate 16 06/17/2017 1:03 PM EST Oxygen Saturation 99% 06/17/2017 1:03 PM EST Inhaled Oxygen Concentration - - Weight 96.4 kg (212 lb 9.6 oz) 06/17/2017 1:03 P M EST Height - - Body Mass Index 29.76 05/16/2017 3:23 PM EDT documented in this encounter Patient Instructions * Patient Instructions* Beckie Mathews, ASSISTANT MANAGER AIRSIDE OPERATIONS - 06/17/2017 1:54 PM EST Images from the original note [...] position. ?? Your doctor may recommend an [id number] laxative to relieve your constipation. Examples are [...] Where can you learn more? Visit our [employer] information library at [email or web address]. You can also view health information on [employer], your personal patient account. Log in or sign uptoday. Enter P343 in the search box to learn more about Constipation: Care Instructions. Current as of: October 14, 2016 Content Version: 11.4 ?? [id number] [employer]. Care instructions adapted under license by [facility]. If you have questions about a medical condition or this instruction, always ask your healthcare professional. [employer] disclaims any warranty or liability for your use of this information. Constipation: Care Instructions Your Care Instructions Constipation [...] position. ?? Your doctor may recommend an nhwu-xru-ccgbftd laxative to relieve your constipation. Examples are [...] more? Visit our health information library at [email or web address]. You can also view health information on [employer], your personal patient account. Log in or sign uptoday. Enter P343 in the search box to learn more about Constipation: Care Instructions. Current as of: October 14, 2016 Content Version: 11.4 ?? [id number] [employer]. Care instructions adapted under license by [facility]. If you have questions about a medical condition or this instruction, always ask your healthcare professional. [employer] disclaims any warranty or liability for your use of this information. Constipation: Care Instructions Your Care Instructions Constipation [...] position. ?? Your doctor may recommend an hwhx-wxz-ivqxubh laxative to relieve your constipation. Examples are [...] Where can you learn more? Visit our [employer] information library at [email or web address]. You can also view health information on [employer], your personal patient account. Log in or sign uptoday. Enter P343 in the search box to learn more about Constipation: Care Instructions. Current as of: October 14, 2016 Content Version: 11.4 ?? [id number] [employer]. Care instructions adapted under license by [facility]. If you have questions about a medical condition or this instruction, always ask your healthcare professional. [employer] disclaims any warranty or liability for your use of this information. documented in this encounter Progress Notes * Beckie Mathews APRN - 06/17/2017 1:20 PM EST Subjective: Patient ID: Ken Mckeon is a 71 y.o. male. HPI Ken is here with constipation for about 2 weeks. He has tried Miralax, benefiber, fluids and did Ducolax supp. He had a pencil thin BM and this is it. He has been constipated in the past but usually not to this point. He has had very rare gas. Had a prostate biopsy a couple of months ago but this just started 2 weeks ago. He is hungry so broke down and had a hamburger yesterday but in general eating very little due to concern for no BM coming out. Review of Systems Constitutional: Negative for activity change, appetite change, chills and fever. Gastrointestinal: Positive for abdominal distention and constipation. Negative for abdominal pain, diarrhea, nausea and vomiting. Objective: Physical Exam Constitutional: He appears well-developed and well-nourished. Abdominal: Soft. Bowel sounds are absent. There is tenderness in the right lower quadrant. There isno rebound. Vitals reviewed. Assessment and Plan: Ken was seen today for constipation. KUB shows left sided full of stool. Gave very specific instruction to take the Magnesium Citrate then try the enema with some mineral oint and hold while on right side as long as possible. Clear liquids only for now, we will call tomorrow. See encounter summary for patient instructions. Diagnoses and all orders for this visit: Acute constipation - sodium phosphates (FLEET) Enema; Place 1 Bottle rectally once as needed for Constipation for up to 1 dose. - magnesium citrate Solution; Take 240 mLs by mouth once for 1 dose. documented in this encounter Plan of Treatment Upcoming Encounters Date Type Department Care Team (Late st Contact Info) Description 12/15/2024 11:30 AM EDT Office [place] [address] Charline Ziegler MD [facility] [place] [address] documented as of this encounter Visit Diagnoses Diagnosis Acute constipation Unspecified constipation documented in this encounter Care Teams Metal Work Duct Installer Relationship Specialty Start Date End Date Reji Adams MD [facility] [place] [address] PCP - General General Internal Medicine 07/13/15 documented as of this encounter
--- OUTSIDE RECORDS SUMMARY | 2024-07-09 11:15 | XMS_ITS | Encounter Summary ---
Author Organization Formerly [facility] [place] [address] Care Team Providers Care Airport Operations Supervisor Name Role Phone Reji Adams MD Primary Care Provider [phone] Encounter Details Date Type Department Care Team (Latest Contact Info) Description 04/03/2017 3:30 PM EDT Laboratory Appointment Internal Medicine at [address] [address] Chronic fatigue Social History Tobacco Use Types [...] 11:30 AM EDT Office [place] [address] Charline Ziegler MD [facility] [place] [address] documented as of this encounter Procedures Procedure Name Priority Date/Time Associated Diagnosis Comments HEMOGRAM Routine 04/03/2017 4:27 PM EDT Chronic fatigue DIFFERENTIAL, AUTOMATED Routine 04/03/2017 4:27 PM EDT Chronic fatigue CBC (WITH DIFF) Routine 04/03/2017 4:27 PM EDT Chronic fatigue TSH Routine 04/03/2017 4:27 PM EDT Chronic fatigue COMPREHENSIVE METABOLIC PANEL Routine 04/03/2017 4:27 PM EDT Chronic fatigue documented in this encounter Results * Differential, Automated (04/03/2017 4:27 PM EDT) Neutrophil % 57.3 % [facility] Neutrophil Absolute 4.59 1.70 - 6.10 x10(3)/[facility] Lymph % 34.5 % [facility] Lymphocytes Abs 2.8 0.9 - 3.2 x10(3)/[facility] Monocyte % 6.0 % [facility] Monocyte Abs 0.5 0.3 - 0.9 x10(3)/[facility] Eos % 1.1 % [facility] Eosinophils Abs 0.1 0.0 - 0.4 x10(3)/[facility] Basophil % 0.7 % [facility] Baso Absolute 0.1 0.0 - 0.1 x10(3)/[facility] Immature Gran % 0.40 % [facility] Comment: Immature granulocytes(IG's)percentage and absolute count will include metamyelocytes, myelocytes, and promyelocytes. Blood smears from CBCs yielding IG's will be scanned manually for concordance. If this scan disagrees with the automated IG or if promyelocytes are noted, a manual differential will be performed. Immature Gran Absolute 0.03 0.00 - 0.04 x10(3)/[facility] Blood specimen (specimen) 04/03/2017 4:27 PM EDT 04/03/2017 6:08 PM EDT Narrative Resulting Agency Comment Spec In Lab Reji Adams MD HEMATOLOGY ORDERABLE S [facility] [place] [address] * Hemogram (04/03/2017 4:27 PM EDT) Pathologist [facility] White Blood Cell 8.0 4.0 - 9.5 x10(3)/[facility] Red Blood Cell 5.00 4.58 - 5.54 x10(6)/[facility] Hemoglobin 15.2 13.7 - 16.5 gm/dL [facility] Hematocrit 43.9 40.5 - 48.5 % [facility] Mean Cell Volume 87.8 82.9 - 93.1 [facility] Mean Cell Hemoglobin 30.4 27.5 - 32.1 pg [facility] Mean Cell Hemoglobin Concentration 34.6 32.0 - 35.7 gm/dL [facility] Platelet 212 145 - 357 x10(3)/[facility] RDW Standard Deviation 44.2 36.0 - 45.0 [facility] RDW coefficient of variation 13.5 11.4 - 13.8 % [facility] Mean Platelet Volume 10.0 7.6 - 12.9 [facility] NRBC% auto 0.0 % [facility] NRBC Absolute 0.000 0.000 - 0.000 x10(3)/[facility] Blood specimen (specimen) 04/03/2017 4:27 PM EDT 04/03/2017 6:08 PM EDT Narrative Resulting Agency Comment Spec In Lab Reji Adams MD HEMATOLOGY ORDERABLE S [facility] [place] [address] * TSH (04/03/2017 4:27 PM EDT) Thyroid Stimulating Hormone 1.04 0.27 - 4.20 mlU/ML [facility] Blood specimen (specimen) 04/03/2017 4:27 PM EDT 04/03/2017 6:13 PM EDT Narrative Resulting Agency Comment Spec In Lab Reji Adams MD CHEMISTRY ORDERABLES [facility] [place] [address] * Comprehensive metabolic panel (non-fasting) (04/03/2017 4:27 PM EDT) Pathologist [facility] Glucose 102 65 - 199 mg/dL [facility] Comment:Diabetes: >=200 mg/d L plus symptoms Blood Urea Nitrogen 14 10 - 20 mg/dL [facility] Creatinine 1.04 0.80 - 1.50 mg/dL [facility] Comment: Please note that the pediatric reference intervals supplied above were not validated at [facility]. Results from pediatric patients should be interpreted in conjunction to the patient's age, height and muscle mass. Sodium 140 135 - 145 mmol/L [facility] Potassium 4.0 3.5 - 5.0 mmol/L [facility] Comment: Please note: ??Patients with WBC >100,000 may have falsely elevated Potassium levels. ??For accurate Potassium quantification in these patients send serum separator tube (gold top) for subsequent determinations. ??Contact the Clinical Chemistry Laboratory if there are any questions. Chloride 102 98 - 107 mmol/L [facility] Carbon Dioxide 25 22 - 31 mmol/L [facility] Anion Gap 13 5 - 15 mmol/L [facility] Calcium 9.4 8.5 - 10.5 mg/dL [facility] Protein, Total 6.5 6.1 - 8.0 gm/dL [facility] Albumin 4.1 3.2 - 5.2 gm/dL [facility] Aspartate Aminotransferase 16 0 - 39 unit/L [facility] Alanine Aminotransferase 16 0 - 55 unit/L [facility] Alkaline Phosphatase 40 40 - 120 unit/L [facility] Bilirubin, Total 0.6 0.2 - 1.3 mg/dL [facility] Est Glomerular Filtration Rate >60 >=60 [facility] Comment: This estimated GFR (eGFR) value was calculated using the MDRD equation which has been validated on patients between the ages of 18 and 70. The MDRD should not be used to assess kidney function in patients < 18 years of age or in patients with extremes of body mass, or in patients with acute kidney failure. This value should be multiplied by 1.2 for patients. For further information please copy and paste the following links into your internet browser. [email or web address] [email or web address] Blood specimen (specimen) 04/03/2017 4:27 PM EDT 04/03/2017 6:13 PM EDT Narrative Resulting Agency Comment Spec In Lab Reji Adams MD CHEMISTRY ORDERABLES [facility] [place] [address] documented in this encounter Visit Diagnoses Diagnosis Chronic fatigue Other malaise and fatigue documented in this encounter Care Teams Airport Operations Supervisor Relationship Specialty Start Date End Date Reji Adams MD [facility] [place] [place] [address] PCP - General General Internal Medicine 07/13/15 documented as of this encounter
--- OUTSIDE RECORDS SUMMARY | 2024-07-09 11:15 | XMS_ITS | Encounter Summary ---
Author Organization Formerly [facility] [place] [address] Care Team Providers Care Bumper Operator Name Role Phone Reji Adams MD Primary Care Provider [phone] Reason for Visit * Reason Onset Date Comments Triage 06/16/2017 Constipation Encounter Details Date Type Department Care Team (Late st Contact Info) Description 06/16/2017 Telephone Internal Medicine at [place] [id number] Renetta Pruitt Triage (Constipation ) Social History Tobacco Use Types Packs/Day [...] Telephone Encounter - Amrita Rodriguez RN - 06/17/2017 11:02 AM EST TC to patient, requested he get a KUB prior to appt. He will leave now to get it done. * Telephone Encounter - Amrita Rodriguez RN - 06/16/2017 11:12 AM EST TC to patient. For past week and a half, he has been very constipated. He took Miralax x 3 nights, then Mg citrate after which he passed just water, dulcolax supp x 2. Hyperactive bowel, passing gas.Feels hungry. Stool is pencil-shaped. Not black or tarry, no abdominal pain, feels uncomfortable but not bloated. Has increased fluids and takes benefiber daily with oatmeal and fruit. Trying to avoid constipating foods. Scheduled tomorrow with Beckie Mathews. Advised him to increase Miralax dosing today to 3x and obtainFleet enema, which he should self administer tonight if not results with increased Miralax. He v/u and agreed and will cancel appt tomorrow if he has good results. * Telephone Encounter - Renetta Pruitt - 06/16/2017 10:54 AM EST Message: The pt would like to speak with nurse about his constipation issue he is having. Please call. Caller and relationship (if other than patient-full name): self Best time to call back: any Ok to leave a message: [yes] Ok to send my- message: [n] Offered Appointment: n MA/Nurse contacted via: Message: y Call: n Pager: n documented in this encounter Plan of Treatment Upcoming Encounters Date Type Department Care Team (Late st Contact Info) Description 12/15/2024 11:30 AM EDT Office [place] [id number] Charline Ziegler MD [facility] GASTROENTEROLOGY [place] [address] documented as of this encounter Visit Diagnoses Not on filedocumented in this encounter Care Teams Bumper Operator Relationship Specialty Start Date End Date Reji Adams MD [facility] GENERAL INTERNAL MEDIC[place] [address] PCP - General General Internal Medicine 07/13/15 documented as of this encounter
--- OUTSIDE RECORDS SUMMARY | 2024-07-09 11:15 | XMS_ITS | Encounter Summary ---
Author Organization [facility] Address [facility] [place] [address] Care Team Providers Care Felt Hooker Name Role Phone Reji Adams MD Primary Care Provider [phone] Encounter Details Date Type Department Care Team (Latest Contact Info) Description 06/10/2017 2:57 PM EST - 06/10/2017 11:[address] [facility] Hospital Encounter XRay at [address] [place] [address] Roderick Perkins MD [facility] [place] [address] Elbow arthritis Discharge Disposition: Home Social History Tobacco Use [...] 3 times daily as needed. 03/19/2018 Saw [place] 500 mg capsule Take 500 mg by mouth daily. 03/14/2020 naproxen sodium (ALEVE) 220 mg tablet Take 220 mg by mouth as needed. 01/04/2011 07/09/2017 documented as of this encounter Plan of Treatment Upcoming Encounters Date Type Department Care Team (Late st Contact Info) Description 12/15/2024 11:30 AM EDT Office [place] [address] Charline Ziegler MD [facility] [place] [address] documented as of this encounter Procedures Procedure Name Priority Date/Time Associated Diagnosis Comments XR FLUORO GUIDED JOINT INJECTION MEDIUM RIGHT Routine 06/10/2017 3:40 PM EST Elbow arthritis documented in this encounter Results * XR Fluoro Guided Joint Injection Medium Right (06/10/2017 3:40 PM EST) Anatomical Region Laterality Modality Right Radio Fluoroscop y Impressions 06/10/2017 4:20 PM EST Uneventful RIGHT elbow injection under fluoroscopy. Associated provider: RADHA Kay I, LIBERTY HAMMONDS MD , was present for the entire procedure and I performed the procedure. Narrative 06/10/2017 4:20 PM EST EXAMINATION: ??XR FLUORO GUIDED JOINT INJECTION MEDIUM RIGHT CLINICAL HISTORY: ??Body Part (please add comments as necessary): Right elbow; Right elbow pain, arthritis on MRI RIGHT ELBOW INJECTION UNDER FLUOROSCOPY TECHNIQUE: After an extensive conversation with the patient regarding risks and benefits, oral and written consent were obtained. ??A pre- procedural time-out was performed as per [facility] protocol. The patient was placed supine on the fluoroscopic table. ??The lateral soft tissues of the elbow was prepped and draped in the usual aseptic manner. 1% Lidocaine was used to achieve local anesthesia. Under fluoroscopic guidance, 25 gauge ? needle was advanced into the joint space. ??Small amount of air was injected to the document needle placement. ??A mixture of Ropivacaine and triamcinolone acetonide was injected. All needles removed at end of procedure. FINDINGS: 1. ??Small amount of injected air in the radiocapitellar joint space. 2. ??PAIN SCORE: ??Before: 2/10 ??After: 0/10 3. Fluoroscopy time: 0.17 min. 4. Medications: ??Lidocaine 1% - <5 ml, for subcutaneous anesthesia ??Ropivacaine HCL ??0.5% - 2 ml ??Triamciolone Acetonide ??- 40 mg COMPLICATIONS: ??None immediate. POST-PROCEDURE CARE: Information regarding monitor of infection and management of post- procedural were reviewed with patient. Procedure Note Liberty Hammonds MD - 06/10/2017 EXAMINATION: XR FLUORO GUIDED JOINT INJECTION MEDIUM RIGHT CLINICAL HISTORY: Body Part (please add comments as necessary): Rightelbow; Right elbow pain, arthritis on MRI RIGHT ELBOW INJECTION UNDER FLUOROSCOPY TECHNIQUE: After an extensive conversation with the patient regardingrisks and benefits, oral and written consent were obtained. A pre- proceduraltime-out was performed as per [facility] protocol. The patient was placed supine on the fluoroscopic table. The lateralsoft tissues of the elbow was prepped and draped in the usual aseptic manner.1% Lidocaine was used to achieve local anesthesia. Under fluoroscopicguidance, 25 gauge needle was advanced into the joint space. Small amount of airwas injected to the document needle placement. A mixture of Ropivacaine and triamcinolone acetonide was injected. All needles removed at end ofprocedure. FINDINGS: 1. Small amount of injected air in the radiocapitellar joint space. 2. PAIN SCORE: Before: 2/10 After: 0/10 3. Fluoroscopy time: 0.17 min. 4. Medications: Lidocaine 1% - <5 ml, for subcutaneous anesthesia Ropivacaine HCL 0.5% - 2 ml Triamciolone Acetonide - 40 mg COMPLICATIONS: None immediate. POST-PROCEDURE CARE: Information regarding monitor of infection andmanagement of post- procedural were reviewed with patient. IMPRESSION Uneventful RIGHT elbow injection under fluoroscopy. Associated provider: RADHA Kay I, LIBERTY HAMMONDS MD , was present for the entire procedure and Iperformed the procedure. Roderick Perkins MD IMG FLUORO ORDERABLE S documented in this encounter Visit Diagnoses Diagnosis Elbow arthritis Unspecified arthropathy, upper arm documented in this encounter Administered Medications Inactive Administered Medications - up to 3 most recent administrations Medication Order MAR Action Action Date Dose Rate Site ROpivacaine (PF) 5 mg/mL (0.5 %) 4 mL with methylPREDNISolone acetate 40 mg injection Intra-articular, ONCE, 1 dose, On Fri06/10/17 at 1545 Given 06/10/2017 3:36 PM EST documented in this encounter Care Teams Felt Hooker Relationship Specialty Start Date End Date Reji Adams MD [facility] [place] [address] PCP - General Internal Medicine 07/13/15 documented as of this encounter
--- OUTSIDE RECORDS SUMMARY | 2024-07-09 11:15 | XMS_ITS | Encounter Summary ---
Author Organization [facility] [place] [address] Care Team Providers Care Supervisor Customer Services Name Role Phone Reji Adams MD Primary Care Provider Reason for Visit * Reason Onset Date Comments Medication Refill 04/11/2017 Encounter Details Date Type Department Care Team (Late st Contact Info) Description 04/11/2017 Refill Internal Medicine at [address] [address] Patrice Costello Social History Tobacco Use Types Packs/Day Years [...] 11:30 AM EDT Office Visit [place] [phone] Charline Ziegler MD [facility] [place] [address] documented as of this encounter Visit Diagnoses Not on filedocumented in this encounter Care Teams Supervisor Customer Services Relationship Specialty Start Date End Date Reji Adams MD [facility] GENER[facility] [place] [address] PCP - General General Internal Medicine 07/13/15 documented as of this encounter
--- OUTSIDE RECORDS SUMMARY | 2024-07-09 11:15 | XMS_ITS | Encounter Summary ---
Author Organization [facility] [place] [address] Care Team Providers Care Compressor Engineer Name Role Phone Reji Adams MD Primary Care Provider [phone] Encounter Details Date Type Department Care Team (Late st Contact Info) Description 03/13/2017 10:50 AM EDT Laboratory Appointment Lab [address] [place] [phone] Elevated PSA Social History Tobacco Use Types [...] 11:30 AM EDT Office [place] [phone] Charline Ziegler MD [facility] [place] [address] documented as of this encounter Procedures Procedure Name Priority Date/Time Associated Diagnosis Comments PSA (ULTRASENSITIVE) STAT 03/13/2017 10:59 AM EDT Elevated PSA documented in this encounter Results * (ABNORMAL) PSA (03/13/2017 10:59 AM EDT) Prostate Specific Antigen (Ultrasensitiv e) 6.19(H) 0.00 - 4.00 ng/mL [facility] Blood specimen (specimen) 03/13/2017 10:59 AM EDT 03/13/2017 11:04 AM EDT Narrative Resulting Agency Comment Spec In Lab Tobias Mcginnis MD CHEMISTRY ORDERABL ES [facility] [place] [address] documented in this encounter Visit Diagnoses Diagnosis Elevated PSA Elevated prostate specific antigen (PSA) documented in this encounter Care Teams Compressor Engineer Relationship Specialty Start Date End Date Reji Adams MD [facility] [place] [address] PCP - General General Internal Medicine 07/13/15 documented as of this encounter
--- OUTSIDE RECORDS SUMMARY | 2024-07-09 11:15 | XMS_ITS | Encounter Summary ---
Author Organization [facility] [place] [address] Care Team Providers Care Lead Mechanical Engineer Name Role Phone Reji Adams MD Primary Care Provider [phone] Reason for Referral * Diagnostic Test (Routine) - Closed Specialty Diagnoses / Procedures Referred By Duglas arizmendi Referred To Contact Radiology Diagnoses Chronic left shoulder pain Procedures MRI Shoulder wo Contrast Left (Generic) Abbie Butcher PA [facility] [place] [address] [place] [address] Referral ID Status Reason Start Date Expiration Date V isits Requested Visits Authorized [id number] Closed Specialty Service Requested 05/13/2017 05/13/2018 1 1 Encounter Details Date Type Department Care Team (Late st Contact Info) Description 05/13/2017 Orders [place] [address] Abbie Butcher PA [facility] [place] [address] Chronic left shoulder pain; Elbow arthritis Social History Tobacco Use Types Packs/Day Years [...] 11:30 AM EDT Office [place] [address] Charline Ziegler MD [facility] [place] [address] documented as of this encounter Results * XR Fluoro Guided [...] pre- procedural time-out was performed as per [facility] protocol. The patient was placed supine on [...] A pre- proceduraltime-out was performed as per [facility] protocol. The patient was placed supine on [...] Roderick Perkins MD IMG FLUORO ORDERABLE S * MRI Shoulder wo Contrast Left (Generic) (06/10/2017 2:45 PM EST) Anatomical Region Laterality Modality Shoulder Left Magnetic Resonan ce Impressions 06/10/2017 2:59 PM EST 1. ?? Rotator cuff tendinopathy with partial-thickness tears. 2. ??AC joint arthropathy with prominent bony overgrowth that likely contributes to narrowing of the rotator cuff outlet. 3. ??Mild glenohumeral joint osteoarthropathy with fissuring of the cartilage. 4. ??Biceps tendinopathy involving predominantly the intra-articular segment 5. ??Possible frozen shoulder . ?? Narrative 06/10/2017 2:59 PM EST EXAMINATION: MRI SHOULDER WO CONTRAST LEFT (GENERIC) CLINICAL HISTORY: Left shoulder pain, history of partial rotator cuff tear, evaluating for full thickness rotator cuff tear COMPARISON: Radiographs from April 2017 TECHNIQUE: Routine ??MRI of the Left shoulder was performed. FINDINGS: ACROMIOCLAVICULAR JOINT: With subchondral marrow signal alteration, osteophyte formation and subchondral cyst. The overgrowth deforms the supraspinatus muscle and tendon unit, series 4-21 and may contribute to narrowing of the rotator cuff outlet. The anterior acromium is slightly, series 6-17. There is a small bright T2 signal focus in the body of the acromium, series 7-17. BURSA: There is minimal peribursal inflammation. ROTATOR CUFF: No full-thickness cuff tear. Diffuse rotator cuff tendinopathy with markedly heterogeneous signal within the substance. There is high-grade articular surface partial-thickness tears at the footprint and anterior leading edge, series 7-9. The subscapular tendon is similarly thick and heterogeneous with articular surface fraying near insertion, series 9-18. MUSCULATURE: No muscle atrophy. GLENOHUMERAL JOINT & CARTILAGE: No large effusion. There is fissuring of the cartilage in the glenohumeral joint accompanied by small osteophyte formation most prominent in the anterior humeral head. Rotator cuff interval-normal fat signal is effaced. The inferior ??joint capsule is slightly thick. This constellation of finding has been associated with frozen shoulder. LABRUM: 1. ??Posterior superior labrum-torn, series 4-13. 2. ??Posterior labrum-slightly frayed. 3. ??Anterior inferior labrum-frayed and with degenerative signal. 4. ??Anterior superior labrum-grossly normal. 5. ??Biceps anchor-not interrupted but there are longitudinal splits, series 4-18. BICEPS TENDON: Not interrupted. The intra-articular segment is heterogeneous, series 7-18 representing tendinopathy. BONES: Normal morphology of glenoid. NERVES: No mass lesion in Quadrilateral space and along the suprascapular nerve Procedure Note Liberty Hammonds MD - 06/10/2017 EXAMINATION: MRI SHOULDER WO CONTRAST LEFT (GENERIC) CLINICAL HISTORY: Left shoulder pain, history of partial rotator cufftear, evaluating for full thickness rotator cuff tear COMPARISON: Radiographs from April 2017 TECHNIQUE: Routine MRI of the Left shoulder was performed. FINDINGS: ACROMIOCLAVICULAR JOINT: With subchondral marrow signal alteration,osteophyte formation and subchondral cyst. The overgrowth deforms the supraspinatusmuscle and tendon unit, series 4-21 and may contribute to narrowing of therotator cuff outlet. The anterior acromium is slightly, series 6-17. There is a smallbright T2 signal focus in the body of the acromium, series 7-17. BURSA: There is minimal peribursal inflammation. ROTATOR CUFF: No full-thickness cuff tear. Diffuse rotator cufftendinopathy with markedly heterogeneous signal within the substance. There ishigh-grade articular surface partial-thickness tears at the footprint and anteriorleading edge, series 7-9. The subscapular tendon is similarly thick andheterogeneous with articular surface fraying near insertion, series 9-18. MUSCULATURE: No muscle atrophy. GLENOHUMERAL JOINT & CARTILAGE: No large effusion. There is fissuring ofthe cartilage in the glenohumeral joint accompanied by small osteophyteformation most prominent in the anterior humeral head. Rotator cuff interval-normal fat signal is effaced. The inferior jointcapsule is slightly thick. This constellation of finding has been associated withfrozen shoulder. LABRUM: 1. Posterior superior labrum-torn, series 4-13. 2. Posterior labrum-slightly frayed. 3. Anterior inferior labrum-frayed and with degenerative signal. 4. Anterior superior labrum-grossly normal. 5. Biceps anchor-not interrupted but there are longitudinal splits,series 4-18. BICEPS TENDON: Not interrupted. The intra-articular segment isheterogeneous, series 7-18 representing tendinopathy. BONES: Normal morphology of glenoid. NERVES: No mass lesion in Quadrilateral space and along the suprascapularnerve IMPRESSION 1. Rotator cuff tendinopathy with partial-thickness tears. 2. AC joint arthropathy with prominent bony overgrowth that likelycontributes to narrowing of the rotator cuff outlet. 3. Mild glenohumeral joint osteoarthropathy with fissuring of thecartilage. 4. Biceps tendinopathy involving predominantly the intra-articularsegment 5. Possible frozen shoulder . Roderick Perkins MD IMG MRI ORDERABLES documented in this encounter Visit Diagnoses Diagnosis Chronic left shoulder pain Pain in joint, shoulder region Elbow arthritis Unspecified arthropathy, upper arm Elbow arthritis Unspecified arthropathy, upper arm Chronic left shoulder pain Pain in joint, shoulder region documented in this encounter Care Teams Lead Mechanical Engineer Relationship Specialty Start Date End Date Reji Adams MD [facility] GENERAL [place] [address] PCP - General General Internal Medicine 07/13/15 documented as of this encounter
--- OUTSIDE RECORDS SUMMARY | 2024-07-09 11:15 | XMS_ITS | Encounter Summary ---
Author Organization [facility] Address [facility] [place] [address] Care Team Providers Care Tree Cutter Name Role Phone Reji Adams MD Primary Care Provider [phone] Encounter Details Date Type Department Care Team (Late Contact Info) Description 03/13/2017 [place] [address] Tobias Mcginnis MD [facility] [place] [address] Social History Tobacco Use Types Packs/Day Years [...] Telephone Encounter - Tobias Mcginnis MD - 03/13/2017 4:04 PM EDT Called re: PSA recheck result. This revealed a PSA of 6.19. Per our clinic discussion I will schedule him for biopsy. documented in this encounter Plan of Treatment Upcoming Encounters Date Type Department Care Team (Late st Contact Info) Description 12/15/2024 11:30 AM EDT Office [place] [address] Charline Ziegler MD [facility] [place] [place] [address] documented as of this encounter Visit Diagnoses Not on filedocumented in this encounter Care Teams Tree Cutter Relationship Specialty Start Date End Date Reji Adams MD [facility] [place] [address] PCP - General General Internal Medicine 07/13/15 documented as of this encounter
--- OUTSIDE RECORDS SUMMARY | 2024-07-09 11:15 | XMS_ITS | Encounter Summary ---
Author Organization [facility] [place] [address] Care Team Providers Care Plant Clerk Name Role Phone Reji Adams MD Primary Care Provider [phone] Reason for Visit * Reason Onset Date Comments Labs Only 04/03/2017 Encounter Details Date Type Department Care Team (Late st Contact Info) Description 04/03/2017 Telephone Internal Medicine at [address] [address] Adenike Marvin Labs Only Social History Tobacco Use Types [...] Telephone Encounter - Amrita Rodriguez RN - 04/03/2017 10:50 AM EDT Persistent fatigue, states not related to allergies or breathing. Woke up after sleeping 8 hours, then felt exhausted. Happens every day, has been complaining of it for quite a while. Last labs in Aug are all normal. Will discuss with Dr Adams and pend orders if given. * Telephone Encounter - Adenike Marvin - 04/03/2017 9:59 AM EDT Patient calling because he is still having fatigue and is wondering if Reji Adams MD would order some labs for him to have done, possibly today? He has to bring someone else to the clinic this afternoon for an appt and could do them then. Please return call as soon as possible. [phone] documented in this encounter Plan of Treatment Upcoming Encounters Date Type Department Care Team (Late st Contact Info) Description 12/15/2024 11:30 AM EDT Office Visit [place] [address] Charline Ziegler MD [facility] [place] [address] documented as of this encounter Results * TSH (04/03/2017 4:27 PM EDT) Thyroid Stimulating Hormone 1.04 0.27 - 4.20 mlU/ML [facility] Blood specimen (specimen) 04/03/2017 4:27 PM EDT 04/03/2017 6:13 PM EDT Narrative Resulting Agency Comment Spec In Lab Reji Adams MD CHEMISTRY ORDERABLES [facility] [place] [address] * Comprehensive metabolic panel (non-fasting) (04/03/2017 4:27 PM EDT) Glucose 102 65 - 199 mg/dL [facility] Comment:Diabetes: >=200 mg/d L plus symptoms Blood Urea Nitrogen 14 10 - 20 mg/dL [facility] Creatinine 1.04 0.80 - 1.50 mg/dL [facility] Comment: Please note that the pediatric reference intervals supplied above were not validated at [facility]. Results from pediatric patients should be interpreted in conjunction to the patient's age, height and muscle mass. Sodium 140 135 - 145 mmol/L [facility] Potassium 4.0 3.5 - 5.0 mmol/L [facility] Comment: Please note: ??Patients with WBC >100,000 may have falsely elevated Potassium levels. ??For accurate Potassium quantification in these patients send serum separator tube (gold top) for subsequent determinations. ??Contact the Clinical Chemistry Laboratory if there are any questions. Chloride 102 98 - 107 mmol/L [facility] Carbon Dioxide 25 22 - 31 mmol/L [facility] Anion Gap 13 5 - 15 mmol/L [facility] Calcium 9.4 8.5 - 10.5 mg/dL [facility] Protein, Total 6.5 6.1 - 8.0 gm/dL [facility] Albumin 4.1 3.2 - 5.2 gm/dL [facility] Aspartate Aminotransferase 16 0 - 39 unit/L [facility] Alanine Aminotransferase 16 0 - 55 unit/L [facility] Alkaline Phosphatase 40 40 - 120 unit/L [facility] Bilirubin, Total 0.6 0.2 - 1.3 mg/dL [facility] Est Glomerular Filtration Rate >60 >=60 [facility] Comment: This estimated GFR (eGFR) value [...] the following links into your internet browser. [email or web address] Blood specimen (specimen) 04/03/2017 4:27 PM EDT 04/03/2017 6:13 PM EDT Narrative Resulting Agency Comment Spec In Lab Reji Adams MD CHEMISTRY ORDERABLES [facility] [place] [address] documented in this encounter Visit Diagnoses Diagnosis Chronic fatigue Other malaise and fatigue documented in this encounter Care Teams Plant Clerk Relationship Specialty Start Date End Date Reji Adams MD [facility] DR GENERAL [place] [address] PCP - General General Internal Medicine 07/13/15 documented as of this encounter
--- OUTSIDE RECORDS SUMMARY | 2024-07-09 11:15 | XMS_ITS | Encounter Summary ---
Author Organization [facility] Address [facility] [place] [address] Care Team Providers Care Chemistry Laboratory Technician Name Role Phone Reji Adams MD Primary Care Provider [phone] Reason for Visit * Reason Comments Groin Pain kidney stone? hernia ? in area where had hernia, pain comes and goes Encounter Details Date Type Department Care Team (Late st Contact Info) Description 03/04/2017 10:30 AM EDT Office [place] [address] [facility] [place] [address] Groin pain, right; Urinary frequency; Mid back pain on right side; Elevated PSA; Right lower quadrant abdominal pain Social History Tobacco Use Types Packs/Day [...] Sign Reading Time Taken Comments Blood Pressure 111/71 03/04/2017 10:22 AM EDT Pulse 65 03/04/2017 10:22 AM EDT Temperature - - Respiratory Rate - - Oxygen Saturation 100% 03/04/2017 10:22 AM EDT Inhaled Oxygen Concentration - - Weight 95.7 kg (211 lb) 03/04/2017 10:22 AM EDT Height 180.3 cm (5' 11) 03/04/2017 10:22 AM EDT Body Mass Index 29.43 03/04/2017 10:22 AM EDT documented in this encounter Patient Instructions * Patient Instructions* Marielena Vo - 03/04/2017 10:30 AM EDT We will set CT up for one month from now Call us if you have any worsening symptoms documented in this encounter Progress Notes * Marielena Vo - 03/04/2017 10:30 AM EDT ESTABLISHED PATIENT VISIT I. HISTORY a. Reason(s) for Visit: Ken Mckeon 71 y.o. male who presents today due to complaint(s) of: Chief Complaint Patient presents with ??? Groin Pain kidney stone? hernia? in area where had hernia, pain comes and goes b. History of Present Illness: Mr. Mckeon has had increased right groin pain for about 3 weeks. The pain is sharp and radiates into the right testicle; can last seconds to minutes. Nothing in particular brings it on. It is NOT more painful if he bears down or strains. Initially started as mild intermittent pain a few months ago, but is now becoming more frequent and painful. He has a history of 2 hernia repairs on same side - last was probably ~2008. He had similar symptoms then, but he does not feel any bump now. The last repair was done by Dr. Smith. He has a persistent ache in the right back that comes and goes. Pain is 6/10 at its worse. He has not noticed blood in his urine. His urine is dark in color secondary to supplements he takes and lower liquid PO intake. He has been having urinary issues, including frequency and urgency without major output. He does not get up in the middle of the night to urinate. He has a full bladder in the morning but feels thereis a restiiction to fully emptying his bladder with small voiding volumes. He was seen by urology, who recommended he cut down on his fluid intake but hasn't notice a big change in his symptoms. He is concerned about what urinary contamination means. I explained that this likely represents skin kelby. His partner has a UTI recently. He is wondering if that increases his risk of getting an infection.I explained that he is extremely unlikely to get an infection from this. There is no concern for STIs - he's been in a monogamous relationship for 10 years. c. Review of Systems: Constitutional - no fevers, chills, weight loss or gain, +fatigue, +poor appetite Gastrointestinal - No abdominal pain, blood in stool, dark tarry stools, +occasional constipation Genitourinary - +urinary frequency, urgency, weak stream, no gross hematuria Musculoskeletal - no weakness, pain at rest or with movement, no joint swelling d. [facility] Patient Active Problem List Diagnosis ??? Otalgia of left ear ??? Panic [...] - 1 Cans of beer per week II. PHYSICAL EXAM: BP 111/71 Pulse 65 Ht 180.3 cm (5' 11) Wt 95.7 kg (211 lb) SpO2 100% BMI 29.43 kg/m2 General: alert, oriented, in no acute distress HEENNT: atraumatic, normocephalic Abdomen: +BS, soft, non-distended, no organomegaly, +tenderness of right lower quadrant to deep palpation Extremities: no AIDEE MSK: tenderness to palpation of right mid-thoracic spine in the mid-subscapular area, no CVA tenderness, no anterior hip TTP, normal ROM right hip, no pain with JUDI : pain of right hypogastrium NOT increased with palpation, no bulge appreciated, no bulge on hernia exam, no testicular mass III. ASSESSMENT/PLAN:Ken Mckeon 71 y.o. male presenting with right groin and back pain. I feel there are most likely two separate issues going on - musculoskeletal pain with the back and either hernia recurrence or possible post-surgical pain with the right groin. The patient has had microscopic hematuria in the past, so we are considering kidney stone, but feel this is less likely. Question of other potential process that might tie these symptoms together with rising PSA - repeat PSA pending. Diagnoses and all orders for this visit: Groin pain, right with chronic right-sided mid-thoracic back pain, RLQ abdominal pain -CT abdomen/pelvis if symptoms continue to persist over the next month -If pain improves, patient with hold off on any imaging -He will call if any new symptoms arise or pain increases Urinary frequency, elevated PSA - POCT urine dipstick without any signs of infection; no microscopic hematuria Meds reconciled * Mirlande New MD - 03/04/2017 10:30 AM EDT I have seen the patient and reviewed the resident's above history and I agree with the details as written. The assessment and plan were formulated in discussion with me and I agree with them as documented. Pertinent History: Pt is a 71 male presenting with mod-severe R groin pain radiating down into testicle. H/o hernia repair on that side, also h/o hematuria and mild elevation of PSA. No new GI/ symptoms. Pertinent Exam: Pleasant NAD. + back and RLQ pain, no rebound/guarding. Per resident no hernia on inguinal exam Major issues addressed: Unclear etiology of pain. Given past history will check CT of abd/pelvis. documented in this encounter Plan of Treatment Upcoming Encounters Date Type Department Care Team (Late st Contact Info) Description 12/15/2024 11:30 AM EDT Office Visit [place] [address] [facility] [place] [address] documented as of this encounter Procedures Procedure Name Priority Date/Time Associated Diagnosis Comments POCT URINE DIPSTICK Routine 03/04/2017 1 1:30 AM EDT Urinary frequency documented in this encounter Results * POCT urine dipstick (03/04/2017 11:30 AM EDT) POC Sp [place] 1.010 1.002 - 1.030 POC pH, UA 6 [...] Blood, UA neg Negative - Negative denise/uL 03/04/2017 11:3 0 AM EDT Mirlande New MD POINT OF CARE TEST O RDERABLES documented in this encounter Visit Diagnoses Diagnosis Groin pain, right Urinary frequency Mid back pain on right side Elevated PSA Elevated prostate specific antigen (PSA) Right lower quadrant abdominal pain Abdominal pain, right lower quadrant documented in this encounter Care Teams Chemistry Laboratory Technician Relationship Specialty Start Date End Date Reji Adams MD [facility] [place] [address] PCP - General General Internal Medicine 07/13/15 documented as of this encounter
--- OUTSIDE RECORDS SUMMARY | 2024-07-09 11:15 | XMS_ITS | Encounter Summary ---
Author Organization [facility] Address [facility] [place] [address] Care Team Providers Care Operational Meteorologist Name Role Phone Reji Adams MD Primary Care Provider [phone] Reason for Referral * Diagnostic Test (Routine) - Closed Specialty Diagnoses / Procedures Referred By Contac t Referred To Contact Radiology Diagnoses Chronic left shoulder pain Procedures MRI Shoulder wo Contrast Left (Generic) Abbie Butcher PA [facility] [place] [address] [place] [address] Referral ID Status Reason Start Date Expiration Date V isits Requested Visits Authorized [id number] Closed Specialty Service Requested 05/13/2017 05/13/2018 1 1 Reason for Visit * Diagnostic Test (Routine) - Closed Specialty Diagnoses / Procedures Referred By Contac t Referred To Contact Radiology Diagnoses Chronic left shoulder pain Procedures MRI Shoulder wo Contrast Left (Generic) Abbie Butcher PA [facility] [place] [address] [place] [address] Referral ID Status Reason Start Date Expiration Date V isits Requested Visits Authorized [id number] Closed Specialty Service Requested 05/13/2017 05/13/2018 1 1 Encounter Details Date Type Department Care Team (Latest Contact Info) Description 06/10/2017 1:53 PM EST - 06/10/2017 2:56 PM EST Hospital [place] [address] Roderick Perkins MD [facility] [place] [address] Chronic left shoulder pain Discharge Disposition: Home Social History Tobacco [...] 3 times daily as needed. 03/19/2018 Saw [place] 500 mg capsule Take 500 mg by mouth daily. 03/14/2020 naproxen sodium (ALEVE) 220 mg tablet Take 220 mg by mouth as needed. 01/04/2011 07/09/2017 documented as of this encounter Plan of Treatment Upcoming Encounters Date Type Department Care Team (Late st Contact Info) Description 12/15/2024 11:30 AM EDT Office [place] [phone] Charline Ziegler MD [facility] [address] documented as of this encounter Procedures Procedure Name Priority Date/Time Associated Diagnosis Comments MRI SHOULDER LEFT WO CONTRAST Routine 06/10/2017 2:45 PM EST Chronic left shoulder pain documented in this encounter Results * MRI Shoulder wo Contrast Left (Generic) [...] along the suprascapular nerve Procedure Note Liberty Diaz MD - 06/10/2017 EXAMINATION: MRI SHOULDER WO [...] region documented in this encounter Care Teams Operational Meteorologist Relationship Specialty Start Date End Date Reji Adams MD [facility] [place] [address] PCP - General General Internal Medicine 07/13/15 documented as of this encounter
--- OUTSIDE RECORDS SUMMARY | 2024-07-09 11:15 | XMS_ITS | Encounter Summary ---
Author Organization [facility] [address] Care Team Providers Care Artist Blacksmith Name Role Phone Reji Adams MD Primary Care Provider [phone] Reason for Visit * Reason Onset Date Comments Triage 06/20/2017 Encounter Details Date Type Department Care Team (Late st Contact Info) Description 06/20/2017 Telephone Internal Medicine at [address] [address] Maria T Delaney Triage Social History Tobacco Use Types Packs/Day [...] Telephone Encounter - Amrita Rodriguez RN - 06/20/2017 12:17 PM EST Patient reports on ED visits. He was informed he is not constipated per xray. He is still feeling starved, so ate some turkey and squash yesterday, and breakfast this morning. Feeling bloated now. Advised to resume clear liquids for today, then advance slowly. GI referral in system, he will callfor an appt. Wants to know if he should continue Miralax; Advised he does not appear to need it. Advised to call back next week if he is not beginning to have stools. * Telephone Encounter - Octavia Delaneybev Gay - 06/20/2017 11:27 AM EST Message: Pt calling to talk to nurse re:follow-up per her request. He states she told him to call today to check-in regarding his constipation. Tried to call nurse-no answer. Please call pt back. Caller and relationship (if other than patient-full name): self Best time to call back: any Ok to leave a message: [yes] Ok to send my- message: [no] Offered Appointment: MA/Nurse contacted via: Message: x Call: x Pager: documented in this encounter Plan of Treatment Upcoming Encounters Date Type Department Care Team (Late st Contact Info) Description 12/15/2024 11:30 AM EDT Office [place] [address] Charline Ziegler MD [facility] [place] [address] documented as of this encounter Visit Diagnoses Not on filedocumented in this encounter Care Teams Artist Blacksmith Relationship Specialty Start Date End Date Reji Adams MD [facility] [place] [address] PCP - General General Internal Medicine 07/13/15 documented as of this encounter
--- OUTSIDE RECORDS SUMMARY | 2024-07-09 11:15 | XMS_ITS | Encounter Summary ---
Author Organization [facility] Address [facility] [place] [address] Care Team Providers Care Advertising Writer Name Role Phone Reji Adams MD Primary Care Provider [phone] Encounter Details Date Type Department Care Team (Late st Contact Info) Description 04/01/2017 [place] [address] Tobias Mcginnis MD [facility] [place] [address] Social History Tobacco Use Types Packs/Day Years [...] Telephone Encounter - Tobias Mcginnis MD - 04/01/2017 10:00 AM EDT I returned a call from the patient to review questions regarding elevated PSA and recommendation for biopsy. I answered all of his questions to the best of my ability. At this point he is still planning to undergo biopsy as scheduled on 04/07/17. He inquired wether bacterial prostatitis could cause his rise in PSA. I let him know that yes, in fact I could but that I do not think he has bacterial prostatitis and considering his PSA trend this recent number does not appear to be an outlier. He inquired about a course of antibiotics followed by repeat PSA. I tild him that I do not feel this would make a difference however, if he wanted I would treat with a month of Levoflxacin and recheck PSA if that would make him more comfortable. He will think about it and call back if he would like to do a course of antibiotics and re-check PSA rather then proceed right to biopsy. * Telephone Encounter - Geraldo Freire RN - 04/01/2017 8:32 AM EDT Verified patient name and date of Spoke with the pt and asked him what questions he had about his appointment with Dr Mcginnis on 04/07/17. The pt says that he is having a lot of concerns about having the prostate biopsy procedure and would like to speak with Dr Mcginnis only. The pt is also wondering if he can set up a specific time to discuss this because his cell phone service is spotty and he doesn't want to miss Dr Mcginnis's call. He would prefer if Rahel would give a time and he will call Dr Mcginnis. Told him that his message will be forwarded to Dr Mcginnis. * Telephone Encounter - Darling Leslie - 04/01/2017 8:11 AM EDT Pt would like to discuss appointment on Saturday 04/07 prior to appointment. Pt has questions. Please call [phone] documented in this encounter Plan of Treatment Upcoming Encounters Date Type Department Care Team (Late st Contact Info) Description 12/15/2024 11:30 AM EDT Office [place] [phone] Charline Ziegler MD [facility] [place] [address] documented as of this encounter Visit Diagnoses Not on filedocumented in this encounter Care Teams Advertising Writer Relationship Specialty Start Date End Date Reji Adams MD [facility] GENER[facility] [place] [address] PCP - General General Internal Medicine 07/13/15 documented as of this encounter
--- OUTSIDE RECORDS SUMMARY | 2024-07-09 11:16 | XMS_ITS | Encounter Summary ---
Author Organization [facility] [place] [address] Care Team Providers Care Photogrammetric Surveyor Name Role Phone Reji Adams MD Primary Care Provider [phone] Encounter Details Date Type Department Care Team (Late st Contact Info) Description 09/26/2016 Orders [place] [phone] Roderick Perkins MD [facility] [place] [address] Pain in right elbow Social History Tobacco Use Types [...] 11:30 AM EDT Office [place] [phone] Charline Ziegler MD [facility] [place] [address] documented as of this encounter Visit Diagnoses Diagnosis Pain in right elbow Pain in joint, upper arm documented in this encounter Care Teams Photogrammetric Surveyor Relationship Specialty Start Date End Date Reji Adams MD [facility] GENERAL [place] [address] PCP - General General Internal Medicine 07/13/15 documented as of this encounter
--- OUTSIDE RECORDS SUMMARY | 2024-07-09 11:16 | XMS_ITS | Encounter Summary ---
Author Organization [facility] Address [facility] [place] [address] Care Team Providers Care Private Client Advisor Name Role Phone Reji Adams MD Primary Care Provider [phone] Encounter Details Date Type Department Care Team (Late st Contact Info) Description 03/03/2017 Telephone [place] [address] Tobias Mcginnis MD [facility] [place] [address] Social History Tobacco Use Types Packs/Day Years [...] encounter Miscellaneous Notes * Telephone Encounter - Geraldo Freire RN - 03/03/2017 1:38 PM EDT Verified patient name and date of Spoke with the pt who says he has some concerns he didn't address with Dr Mcginnis during his officevisit. #1 is groin pain which he thinks may be a hernia and #2 intermittent side back pain which hethinks may be a stone. He also is concerned about the results of his urine culture. Explained to him that the urine culture results are contaminated and that he can give another urine specimen if he is still having symptoms. Also advised him to see his PCP regarding his hernia and occasional side/back pain prior to scheduling another appointment with Dr Mcginnis. The pt will not give another urine specimen but will contact his PCP as discussed. * Telephone Encounter - Roney Lujan - 03/03/2017 1:18 PM EDT PHONE: [phone] Pt calls stating that he received the letter regarding contamination in his recent urine specimen. He is still having some symptoms including groin pain (wonders if it is a stone). I will ask the nursing staff to call him this afternoon. documented in this encounter Plan of Treatment Upcoming Encounters Date Type Department Care Team (Late st Contact Info) Description 12/15/2024 11:30 AM EDT Office Visit [place] [address] Charline Ziegler MD [facility] [place] [address] documented as of this encounter Visit Diagnoses Not on filedocumented in this encounter Care Teams Private Client Advisor Relationship Specialty Start Date End Date Reji Adams MD [facility] GENERAL [place] [address] PCP - General General Internal Medicine 07/13/15 documented as of this encounter
--- OUTSIDE RECORDS SUMMARY | 2024-07-09 11:16 | XMS_ITS | Encounter Summary ---
Author Organization [facility] [place] [address] Care Team Providers Care Algorithm Design Engineer Name Role Phone Reji Adams MD Primary Care Provider [phone] Reason for Visit * Reason Onset Date Comments Triage 02/14/2017 Encounter Details Date Type Department Care Team (Late st Contact Info) Description 02/14/2017 Telephone Internal Medicine at [address] [address] Renetta Pruitt Triage Social History Tobacco Use Types Packs/Day [...] Miscellaneous Notes * Telephone Encounter - Amrita Rdoriguez RN - 02/14/2017 1:57 PM EDT Patient reports that he was seen last week for sore throat and nasal congestion. The sore throat responded to salt water gargle, but the nasal congestion and fatigue are worse. The drainage from his nose was clear, now yellow-green. Tried Nyquil/Dayquil that helped only a little, has tried OTC decongestant without relief. Denies fever, facial pain, ear/jaw pain, cough, PND. Using saline spray, does not want Flonase (didn't say why). Does not want to use neti pot either. Would like recommendation about the nasal congestion. * Telephone Encounter - Renetta Pruitt - 02/14/2017 1:08 PM EDT Message: Pt has had a running nose, sinus congestion and some sore throat for a week now. He has used OTC medication but with little to no relief. He would like to know if a prescription can be called into the [facility] in [place], [place]. Please call pt. Caller and relationship (if other than patient-full name): self Best time to call back: any Ok to leave a message: [yes] Ok to send [facility] message: [yes but still call ] Offered Appointment: Pt would like to triage first. Nurse contacted via: Message: y Call: n Pager: n documented in this encounter Plan of Treatment Upcoming Encounters Date Type Department Care Team (Late st Contact Info) Description 12/15/2024 11:30 AM EDT Office Visit [place] [address] Charline Ziegler MD [facility] [place] [address] documented as of this encounter Visit Diagnoses Not on filedocumented in this encounter Care Teams Algorithm Design Engineer Relationship Specialty Start Date End Date Reji Adams MD [facility] GENERAL [place] [address] PCP - General General Internal Medicine 07/13/15 documented as of this encounter
--- OUTSIDE RECORDS SUMMARY | 2024-07-09 11:16 | XMS_ITS | Encounter Summary ---
Author Organization [facility] Address [facility] [place] [address] Care Team Providers Care Filling And Stapling Machine Operator Name Role Phone Reji dAams MD Primary Care Provider [phone] Encounter Details Date Type Department Care Team (Late st Contact Info) Description 08/09/2016 Abstract [facility] Conversion Results [address] [place] [phone] Ap[facility] Conversion, Flowsheet Provider, Social History Tobacco [...] Sign Reading Time Taken Comments Blood Pressure 130/78 08/09/2016 9:39 AM EST Sourced from [facility] Conversion Pulse - - Temperature - - Respiratory Rate - - Oxygen Saturation - - Inhaled Oxygen Concentration - - Weight 98.6 kg (217 lb 6 oz) 08/09/2016 9:39 AM EST Sourced from [facility] Conversion Height 180 cm (5' 10.87) 08/09/2016 9: 39 AM EST Sourced from [facility] Conversion Body Mass Index 30.43 08/09/2016 9:39 AM EST documented in this encounter Plan of Treatment Upcoming Encounters Date Type Department Care Team (Late st Contact Info) Description 12/15/2024 11:30 AM EDT Office [place] [address] Charline Ziegler MD [facility] [place] [address] documented as of this encounter Visit Diagnoses Not on filedocumented in this encounter Care Teams Filling And Stapling Machine Operator Relationship Specialty Start Date End Date Reji Adams MD [facility] [place] [address] PCP - General General Internal Medicine 07/13/15 documented as of this encounter
--- OUTSIDE RECORDS SUMMARY | 2024-07-09 11:16 | XMS_ITS | Encounter Summary ---
Author Organization [facility] [place] [address] Care Team Providers Care Infusion Nurse Name Role Phone Reji Adams MD Primary Care Provider [phone] Reason for Visit * Reason Onset Date Comments Urinary Frequency 11/13/2016 ? UTI - compla ining of fatigue & frequency of urination Encounter Details Date Type Department Care Team (Late st Contact Info) Description 11/13/2016 Telephone Internal Medicine at [address] [address] Layla Lofton RN Urinary Frequency (? UTI - complaining of fatigue & frequency of urination) Social History Tobacco Use Types Packs/Day Years [...] Telephone Encounter - Layla Lofton RN - 11/13/2016 1:16 PM EDT TC hadley Rogers - complaining of fatigue & frequency of urination. Stated that he's had a history of UTI's. I have a prescription for Cipro with a refill on it. Maybe I'll just take that. Encouraged to come to clinic to give a urine for POC Dip to see if he has aninfection, before he takes any antibiotic. Ken denied any fever, and no noticeable blood in urine. No pain on urination. Ken stated that he will stop by tomorrow to give a urine specimen. documented in this encounter Plan of Treatment Upcoming Encounters Date Type Department Care Team (Late st Contact Info) Description 12/15/2024 11:30 AM EDT Office [place] [address] Charline Ziegler MD [facility] [place] [address] documented as of this encounter Visit Diagnoses Not on filedocumented in this encounter Care Teams Infusion Nurse Relationship Specialty Start Date End Date Reji Adams MD [facility] GENER[facility] [place] [address] PCP - General General Internal Medicine 07/13/15 documented as of this encounter
--- OUTSIDE RECORDS SUMMARY | 2024-07-09 11:16 | XMS_ITS | Encounter Summary ---
Author Organization Count Includes [facility] Address [facility] [place] [address] Care Team Providers Care Labeling Associate Name Role Phone Reji Adams MD Primary Care Provider [phone] Encounter Details Date Type Department Care Team (Late st Contact Info) Description 10/30/2016 Orders Only [place] [phone] Abbie Butcher PA [facility] [place] [address] Bilateral shoulder pain, unspecified chronicity Social History Tobacco Use Types Packs/Day Years [...] AM EDT Office Visit [place] [phone] Charline Ziegler MD [facility] GASTROENTEROLOGY [place], [place] [id number] documented as of this encounter Visit Diagnoses Diagnosis Bilateral shoulder pain, unspecified chronicity documented in this encounter Care Teams Labeling Associate Relationship Specialty Start Date End Date Reji Adams MD [facility] [place] [address] PCP - General General Internal Medicine 07/13/15 documented as of this encounter
--- OUTSIDE RECORDS SUMMARY | 2024-07-09 11:16 | XMS_ITS | Encounter Summary ---
Author Organization [facility] Address [facility] [place] [address] Care Team Providers Care Brush Maker Machine Name Role Phone Reji Adams MD Primary Care Provider [phone] Reason for Visit * Reason Comments Nasal Congestion was bad, is some bad , but feels he cannot get a breath of air Other feels like something sitting on his chest Otalgia left ear pain Fatigue Shortness of Breath Encounter Details Date Type Department Care Team (Late st Contact Info) Description 02/27/2017 2:30 PM EDT Office Visit Internal Medicine at [place] [id number] Tiago Jerome MD [facility] [place] [address] Dyspnea, unspecified type; Otalgia, left Social History Tobacco Use Types [...] Sign Reading Time Taken Comments Blood Pressure 110/70 02/27/2017 2:39 PM EDT Pulse 73 02/27/2017 2:39 PM EDT Temperature 36.8 ??C (98.2 ??F) 02/27/2017 2 :39 PM EDT Respiratory Rate - - Oxygen Saturation 98% 02/27/2017 2:3 9 PM EDT Inhaled Oxygen Concentration - - Weight 96.3 kg (212 lb 6.4 oz) 02/27/2017 2:39 PM EDT with shoes on Height 180.3 cm (5' 11) 02/27/2017 2:3 9 PM EDT reported Body Mass Index 29.62 02/27/2017 2:39 PM EDT documented in this encounter Progress Notes * Law Loja MD - 02/27/2017 2:30 PM EDT I have seen the patient and reviewed the resident's above history and I agree with the details as written. The assessment and plan were formulated in discussion with me and I agree with them as documented. Pertinent History: 71 yo M with history of neck and low back pain, here in f/u after being seen with nasal congestion and dyspnea for several weeks in duration. Rhinorrhea has essentially resolved with a combination of Benadryl, Ed, Zyrtec, though these agents leave him feeling tired. Left ear pain is persistent. Not present with/exacerbated by exertion. Denies back or left arm pain. Feels like an elephant is sitting on my chest. Non-smoker, though at one point worked in [employer]. Does not feel this is cardiac. Symptoms seem to be seasonal - summer is the worst month. Maybe 5 pound unintentional weight loss over several months. +anorexia. Fatigue with dyspnea - sometimes doesn't want to get off the couch. No fevers, chills or chest pain. No lower extremity edema. +intermittent hematuria; seen in urology yesterday and found to have an elevated PSA, new from previous. Plan is to repeat the PSA in 2 weeks. Last stress test was in February 2016 ([place]); no significant ST changes or abnormalities on imaging. CBC, CMP, TSH in August were non-focal. Pertinent Exam: NAD, pleasant RRR, no m/g/r CTAB Peak flow #1: 650. Ambulatory O2 sat: no desaturation. Major issues addressed: MARTIN, rhinitis, fatigue. Possibly he has some mild reactive airways disease Plan: - CXR - trial of montelukast 18 mg daily * Tiago Jerome - 02/27/2017 2:30 PM EDT ESTABLISHED PATIENT VISIT I. HISTORY a. Reason(s) for Visit: Ken Mckeon 71 y.o. male who presents today due to complaint(s) of: Chief Complaint Patient presents with ??? Nasal Congestion was bad, is some bad, but feels he cannot get a breath of air ??? Other feels like something sitting on his chest ??? Otalgia left ear pain ??? Fatigue ??? Shortness of Breath b. History of Present Illness:[] Pt presents with 6 weeks of dyspnea and fatigue. States he feels as though an elephant is sitting on his chest and he cannot get a deep enough breath. This is worse on hot days. It began 6 weeks ago and was initially associated with sore throat (which lasted one day) and rhinorrhea (which has sinceimproved but not completely resolved). He also notes associated pain and pressure in his left ear which he still has. He has tried benadryl, zyrtec, ed without relief. He has felt fatigued such that he does not want to get off the couch some days. He does not feel the dyspnea or ear pain is exertional. He was seen yesterday in urology clinic in follow up of PSA 4.7 from 1.96 in 2013. His FREDI was unremarkable at that time. He does report occasional hematuria. c. Review of Systems: Constitutional - no fevers, chills, + fatigue, + 5 pound weight loss last 3 months, unintentional Cardiovascular - No CP, palpitations Respiratory - +SOB, no MARTIN, wheeze, cough, sputum production HEENT - +rhinorrhea, no sinus pain, no itching of eyes Gastrointestinal - No abdominal pain, nausea, blood in stool Genitourinary - + occasional hematuria All other systems negative d. PMH Patient Active Problem List Diagnosis ??? Otalgia [...] beer per week II. PHYSICAL EXAM: BP 110/70 (BP Location (NBP): Left arm, Patient Position: Sitting, BP Cuff Sizes: Large Adult (32-43 cm)) Pulse 73 Temp 36.8 ??C (98.2 ??F) (Oral) Ht 180.3 cm (5' 11) Comment: reported Wt 96.3 kg (212 lb 6.4 oz) Comment: with shoes on SpO2 98% BMI 29.62 kg/m2 General - No acute distress, conversing without difficulty. ENT - oropharynx without lesions. TMs clear, no effusion or bulging of membrane. Eyes - EOMI. PERRL. Neck - No lymphadenopathy, supple, no masses Lungs - Clear to auscultation and percussion. Heart - RRR, no murmur, rub, or gallop Abdomen/GI - Soft, moderate epigastric tenderness. Extremities - No clubbing, cyanosis or edema. Ambulatory pulse ox without desaturation. Peak flow ~600 III. ASSESSMENT/PLAN:Ken Mckeon 71 y.o. male presenting with 6 weeks unremitting dyspnea with associated rhinorrhea and ear pain. Dyspnea 6 weeks is longer than would be expected for URI, but it is possible his dyspnea is due to post-URIreactive airways disease, though he has no wheeze on auscultation. He is a never smoker and has hadno exposures to suggest interstitial lung disease. The combination of dyspnea and ear pain raises co ncern for coronary ischemia, but pt reports no chest pain currently, his symptoms are non-exertional, and he had a previous NM stress perfusion scan in 2016, with no fixed or reversible perfusion deficits. - CXR - Trial montelukast for possible SHAREE - Follow up as needed Tiago Jerome MD PGY-1, Internal Medicine documented in this encounter Plan of Treatment Upcoming Encounters Date Type Department Care Team (Late st Contact Info) Description 12/15/2024 11:30 AM EDT Office Visit [place] [address] Charline Ziegler MD [facility] [place] [address] documented as of this encounter Results * XR Chest PA & Lateral (Generic) (02/28/2017 12:17 PM EDT) Anatomical Region Laterality Modality Chest N/A Digital Radiogra phy Impressions 02/28/2017 12:30 PM EDT Hyperexpanded lungs but no acute infiltrate or congestive changes are seen Narrative 02/28/2017 12:30 PM EDT EXAMINATION: XR CHEST PA AND LATERAL (GENERIC) CLINICAL HISTORY: 6 weeks dyspnea TECHNIQUE: PA and lateral chest COMPARISON: 02/29/2016 FINDINGS: The heart size is normal. The lungs and pleural spaces are clear. Pulmonary vascularity is normal. The lungs are hyperexpanded. The bony structures appear intact. There is no significant change from the prior study. Procedure Note Ryan Thompson MD - 02/28/2017 EXAMINATION: XR CHEST PA AND LATERAL (GENERIC) CLINICAL HISTORY: 6 weeks dyspnea TECHNIQUE: PA and lateral chest COMPARISON: 02/29/2016 FINDINGS: The heart size is normal. The lungs and pleural spaces are clear.Pulmonary vascularity is normal. The lungs are hyperexpanded. The bony structuresappear intact. There is no significant change from the prior study. IMPRESSION Hyperexpanded lungs but no acute infiltrate or congestive changes areseen Law Loja MD IMG DX ORDERABLES documented in this encounter Visit Diagnoses Diagnosis Dyspnea, unspecified type Otalgia, left Dyspnea, unspecified type documented in this encounter Care Teams Brush Maker Machine Relationship Specialty Start Date End Date Reji Adams MD [facility] [place] [address] PCP - General General Internal Medicine 07/13/15 documented as of this encounter
--- OUTSIDE RECORDS SUMMARY | 2024-07-09 11:16 | XMS_ITS | Encounter Summary ---
Author Organization [facility] [place] [address] Care Team Providers Care Board Handler Name Role Phone Reji Adams MD Primary Care Provider [phone] Reason for Referral * Diagnostic Test (Routine) - Closed Specialty Diagnoses / Procedures Referred By Contac t Referred To Contact Radiology Diagnoses Gait disturbance Procedures MRI Thoracic Spine wo Contrast (Generic) Bright Casanova MD [address] [place] [address] [place] [address] Referral ID Status Reason Start Date Expiration Date V isits Requested Visits Authorized [id number] Closed Specialty Service Requested 10/08/2016 10/08/2017 1 1 Reason for Visit * Diagnostic Test (Routine) - Closed Specialty Diagnoses / Procedures Referred By Contac t Referred To Contact Radiology Diagnoses Gait disturbance Procedures MRI Thoracic Spine wo Contrast (Generic) Bright Casanova MD [address] [place] [address] [place] [address] Referral ID Status Reason Start Date Expiration Date V isits Requested Visits Authorized [id number] Closed Specialty Service Requested 10/08/2016 10/08/2017 1 1 Encounter Details Date Type Department Care Team (Latest Contact Info) Description 10/24/2016 10:19 AM EDT - 10/24/2016 11:59 PM EDT Hospital [place] [address] Bright Casanova MD Gait disturbance Discharge Disposition: Home Social History Tobacco Use [...] tablet Take 1 tablet by mouth daily. ibuprofen (ADVIL) 200 mg tablet Take 400 mg by mouth every 6 hours as needed. 05/08/2018 ALPRAZolam (XANAX) 0.25 mg tablet Take 0.25 mg by mouth 3 times daily as needed. 03/19/2018 Saw [place] 500 mg capsule Take 500 mg by [...] 11:30 AM EDT Office Visit [place] [address] Charline Ziegler MD [facility] [place] [address] documented as of this encounter Procedures Procedure Name Priority Date/Time Associated Diagnosis Comments MRI THORACIC SPINE WITHOUT CONTRAST Routine 10/24/2016 11:23 AM EDT Gait disturbance documented in this encounter Results * MRI Thoracic Spine wo Contrast (Generic) (10/24/2016 11:23 AM EDT) Anatomical Region Laterality Modality T-spine Magnetic Resonan ce Impressions 10/24/2016 2:55 PM EDT No thoracic cord signal alteration. Narrative 10/24/2016 2:55 PM EDT EXAMINATION: MRI THORACIC SPINE WO CONTRAST (GENERIC) CLINICAL HISTORY: Gait disturbance TECHNIQUE: MRI thoracic spine was performed without contrast COMPARISON: MRI cervical spine 11/07/2014 FINDINGS: Regional bone marrow is diffusely heterogeneous in signal. There is a small sclerotic focus within the T10 vertebral body which could reflect a bone island and fatty marrow change within the superior endplate of T8. There is chronic mild anterior wedging of mid thoracic vertebrae resulting in mild exaggerated kyphosis centered at T7-8. No spondylolisthesis. SMall right paracentral disc protrusion at C7-T1 causes mild right ventral cord deformation. The thoracic cord is normal in signal and caliber. Annular disc bulge and facet arthropathy at T11-12 contribute to mild to moderate canal narrowing. There is no other significant thoracic canal narrowing. Costovertebral and costotransverse arthropathy, worse on the right at T10. Facet arthropathy at T9-10, T10-T11 and T11-T12 contribute to mild foraminal narrowing. Procedure Note Niki Holly MD - 10/24/2016 EXAMINATION: MRI THORACIC SPINE WO CONTRAST (GENERIC) CLINICAL HISTORY: Gait disturbance TECHNIQUE: MRI thoracic spine was performed without contrast COMPARISON: MRI cervical spine 11/07/2014 FINDINGS: Regional bone marrow is diffusely heterogeneous in signal. There is asmall sclerotic focus within the T10 vertebral body which could reflect a boneisland and fatty marrow change within the superior endplate of T8. There ischronic mild anterior wedging of mid thoracic vertebrae resulting in mildexaggerated kyphosis centered at T7-8. No spondylolisthesis. SMall right paracentraldisc protrusion at C7-T1 causes mild right ventral cord deformation. Thethoracic cord is normal in signal and caliber. Annular disc bulge and facetarthropathy at T11-12 contribute to mild to moderate canal narrowing. There is noother significant thoracic canal narrowing. Costovertebral and costotransverse arthropathy, worse on the right at T10.Facet arthropathy at T9-10, T10-T11 and T11-T12 contribute to mild foraminal narrowing. IMPRESSION No thoracic cord signal alteration. Bright Casanova MD IMG MRI ORDERABLES documented in this encounter Visit Diagnoses Diagnosis Gait disturbance Abnormality of gait documented in this encounter Care Teams Board Handler Relationship Specialty Start Date End Date Reji Adams MD [facility] GENERAL [place] [address] PCP - General General Internal Medicine 07/13/15 documented as of this encounter
--- OUTSIDE RECORDS SUMMARY | 2024-07-09 11:16 | XMS_ITS | Encounter Summary ---
Author Organization [facility] [place] [address] Care Team Providers Care Electrologist Name Role Phone Reji Adams MD Primary Care Provider Encounter Details Date Type Department Care Team (Late st Contact Info) Description 01/03/2017 Interpretation Only Radiology [address] [place] [address] [place] [phone] Unknown None Social History Tobacco Use Types [...] AM EDT Office [place] [phone] Charline Ziegler MD [facility] [address] documented as of this encounter Procedures Procedure Name Priority Date/Time Associated Diagnosis Comments XR PELVIS AND HIP 2 VIEWS RIGHT Routine 01/03/2017 2:02 PM EDT documented in this encounter Results * XR Pelvis w AP & Lat Hip Right (01/03/2017 2:02 PM EDT) Anatomical Region Laterality Modality Pelvis, Hip Right Radiographic [place] ging 01/03/2017 2:02 PM EDT Narrative 01/03/2017 2:02 PM EDT APD Historical Result Principal Coffee Weigher: ??DARA ??GIL PELVIS AND RIGHT HIP: INDICATION: ??Right hip pain. COMPARISON: ??None pertinent. FINDINGS: AP pelvis, AP right hip with calibration ball and frog-leg lateral view of the right hip are obtained. There is no fracture or dislocation. ??There is moderate loss of joint space superiorly in both hips. ??There is deformity of the bilateral femoral head and neck junctions in a Cam type configuration that may predispose to impingement. ??There are small osteophytes at both the right and left femoral head and neck junction. ??There is a 9 mm subchondral cyst superolaterally at the right femoral head and neck junction. ??The SI joints are nonfused. 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 Dara Cordero DO /rr [id number] Procedure Note Unknown - 01/26/2019 APD Historical Result Principal Coffee Weigher: DARA CORDERO PELVIS AND RIGHT HIP: INDICATION: Right hip pain. COMPARISON: None pertinent. FINDINGS: AP pelvis, AP right hip with calibration ball and frog-leg lateral view ofthe right hip are obtained. There is no fracture or dislocation. There is moderate loss of jointspace superiorly in both hips. There is deformity of the bilateral femoral head and neck junctionsin a Cam type configuration that may predispose to impingement. There are small osteophytes at boththe right and left femoral head and neck junction. There is a 9 mm subchondral cystsuperolaterally at the right femoral head and neck junction. The SI joints are nonfused. There has been a bonyfusion of lower lumbar spine. 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 Dara Cordero DO KE/rr [id number] Unknown IMG DX ORDERABLES documented in this encounter Visit Diagnoses Not on filedocumented in this encounter Care Teams Electrologist Relationship Specialty Start Date End Date Reji Adams MD [facility] [place] [address] PCP - General General Internal Medicine 07/13/15 documented as of this encounter
--- OUTSIDE RECORDS SUMMARY | 2024-07-09 11:16 | XMS_ITS | Encounter Summary ---
Author Organization [facility] Address [facility] [place] [address] Care Team Providers Care Program Clinician Name Role Phone Reji Adams MD Primary Care Provider [phone] Encounter Details Date Type Department Care Team (Latest Contact Info) Description 10/10/2016 2:17 PM EDT - 10/10/2016 11:59 PM EDT Hospital Encounter [place] [address] [facility] [place] Intermittent claudication Discharge Disposition: Home Social History Tobacco Use [...] tablet Take 1 tablet by mouth daily. sertraline (ZOLOFT) 25 mg TabletIndications:Panic attack Take 1 tablet by mouth daily. 90 tablet 3 09/30/2016 10/21/2016 ibuprofen (ADVIL) 200 mg tablet Take 400 mg by mouth every 6 hours as needed. 05/08/2018 ALPRAZolam (XANAX) 0.25 mg tablet Take 0.25 mg by mouth 3 times daily as needed. 03/19/2018 Saw [place] 500 mg capsule Take 500 mg [...] 11:30 AM EDT Office Visit Gastroenterology at [facility] [place] [address] Charline Ziegler MD [facility] [place] [address] documented as of this encounter Procedures Procedure Name Priority Date/Time Associated Diagnosis Comments EMILEE, LEGS, MULTIPLE LEVELS Routine 10/10/2016 3:08 PM EDT Intermittent claudication documented in this encounter Results * EMILEE, legs, multiple levels (10/10/2016 3:08 PM EDT) VB Text Report Department: Vascular Surgery Lab Patient: [id number] (KEN COLE) CPT: 78431 ICD10: I73.9 Referring Physician: SHANTE SIFUENTES ?? Indications: Patient with LE leg pain (not associated with walking) and diminished pulses, ? change in EMILEE Diabetes mellitus: No ICD10 Diagnosis Code: I73.9 Findings: Right ?Pressure (mm Hg) ?? EMILEE ??Waveform ?? Brachial Artery ?110 ? Dorsalis Pedis (Ankle) Artery ?134 ? 1.22 ??Triphasic ?? Posterior Tibial (Ankle) Artery ??134 ? 1.22 ??Triphasic ?? Left ? Pressure (mm Hg) ?? EMILEE ??Waveform ?? Brachial Artery ?102 ? Dorsalis Pedis (Ankle) Artery ?129 ? 1.17 ??Triphasic ?? Posterior Tibial (Ankle) Artery ??131 ? 1.19 ??Triphasic ?? Interpretation: RIGHT: No significant lower extremity arterial [...] ABIs with change from previous value: Date ?RIGHT DP ?? RIGHT PT ?? RT GR TOE ??LEFT DP ?LEFT PT ?LT GR TOE 06/10/2005 ??1.26 ? 1.37 ?---- ? 1.24 ? 1.28 ?---- Current ? 1.22(-0.04)1.22( -0.15) ---- ? 1.17(-0.07)1.19( -0.09 )---- Electronically Signed by: SANYA NARAYANAN on 2016-10-14 10:17:12 PM [facility] VB Text Report End of Report [facility] 10/10/2016 3:08 PM EDT Shante Richardson MD VASCULAR ORDERABLES [facility] documented in this encounter Visit Diagnoses Diagnosis Intermittent claudication Peripheral vascular disease, unspecified documented in this encounter Care Teams Program Clinician Relationship Specialty Start Date End Date Reji Adams MD [facility] GENER[place] [address] PCP - General General Internal Medicine 07/13/15 documented as of this encounter
--- OUTSIDE RECORDS SUMMARY | 2024-07-09 11:16 | XMS_ITS | Encounter Summary ---
Author Organization [facility] [place] [address] Care Team Providers Care Hunting And Fishing Guide Name Role Phone Reji Adams MD Primary Care Provider [phone] Encounter Details Date Type Department Care Team (Late st Contact Info) Description 10/31/2016 Interpretation Only Radiology [address] [place] [address] [place] [phone] Unknown None Social History Tobacco Use Types [...] 11:30 AM EDT Office [place] [phone] Charline Ziegler MD [facility] [place] [address] documented as of this encounter Procedures Procedure Name Priority Date/Time Associated Diagnosis Comments XR FLOURO GUIDED NEEDLE PLACEMENT Routine 10/31/2016 9:52 AM EDT documented in this encounter Results * XR FLOURO GUIDED NEEDLE PLACEMENT (10/31/2016 9:52 AM EDT) Anatomical Region Laterality Modality Other 10/31/2016 9:52 AM EDT Narrative 10/31/2016 9:52 AM EDT APD Historical Result Principal Automobile Relocation Engineer: ??MORIS ?ROMIE LEFT SHOULDER STEROID INJECTION: PROCEDURE: ??Risks, benefits and alternatives were discussed with the patient, who consented and signed the consent form. A timeout procedure was performed. ??The multimedia specialist spot image demonstrates degenerative change of the AC joint. The patient was prepped and draped in the usual sterile fashion. ??1% lidocaine with bicarbonate was used as local anesthetic and administered with a #25 gauge needle. ??Using a #22 gauge needle under fluoroscopic guidance, the needle was advanced to glenohumeral joint. ??Its position within the glenohumeral joint was documented with injection of less than 1 mL of Omnipaque- 300. ??Through the needle, 1 mL of Kenalog 40 and 4 mL of lidocaine 2% was easily administered. ??The needle was removed. Fluoroscopy demonstrated the dilution of contrast. ??Bandage was applied and discharge instructions were reviewed. ??Discharge instruction sheet was provided to the patient. ??The patient tolerated the procedure well. There were no immediate complications. Prior to the procedure, the patient rated pain 8/10 on the pain scale and reported pain for over 2 years. ??Post procedure, the patient rated pain 1/10 on the pain scale. TOTAL FLUORO TIME: ??0.3 minutes (3 dGy/cm2). Moris Anderson MD [facility]/ [id number] Procedure Note Unknown - 01/25/2019 APD Historical Result Principal Automobile Relocation Engineer: MORIS ANDERSON LEFT SHOULDER STEROID INJECTION: PROCEDURE: Risks, benefits and alternatives were discussed with thepatient, who consented and signed the consent form. A timeout procedure was performed. The multimedia specialist spot image demonstratesdegenerative change of the AC joint. The patient was prepped and draped in the usual sterile fashion. 1%lidocaine with bicarbonate was used as local anesthetic and administered with a #25 gauge needle.Using a #22 gauge needle under fluoroscopic guidance, the needle was advanced to glenohumeral joint. Itsposition within the glenohumeral joint was documented with injection of less than 1 mL ofOmnipaque- 300. Through the needle, 1 mL of Kenalog 40 and 4 mL of lidocaine 2% was easily administered. Theneedle was removed. Fluoroscopy demonstrated the dilution of contrast. Bandage was appliedand discharge instructions were reviewed. Discharge instruction sheet was provided to the patient. Thepatient tolerated the procedure well. There were no immediate complications. Prior to the procedure, the patient rated pain 8/10 on the pain scale andreported pain for over 2 years. Post procedure, the patient rated pain 1/10 on the painscale. TOTAL FLUORO TIME: 0.3 minutes (3 dGy/cm2). Moris Anderson MD [facility]/ [id number] Unknown PACS IMAGES documented in this encounter Visit Diagnoses Not on filedocumented in this encounter Care Teams Hunting And Fishing Guide Relationship Specialty Start Date End Date Reji Adams MD [facility] [place] [address] PCP - General General Internal Medicine 07/13/15 documented as of this encounter
--- OUTSIDE RECORDS SUMMARY | 2024-07-09 11:16 | XMS_ITS | Encounter Summary ---
Author Organization [facility] [place] [address] Care Team Providers Care Transit Mechanic Name Role Phone Reji Adams MD Primary Care Provider [phone] Encounter Details Date Type Department Care Team (Late st Contact Info) Description 06/18/2016 Interpretation Only Radiology [address] [place] [address] [place] [phone] Unknown None Social History Tobacco Use Types [...] 11:30 AM EDT Office [place] [phone] Chalrine Ziegler MD [facility] [place] [address] documented as of this encounter Procedures Procedure Name Priority Date/Time Associated Diagnosis Comments XR FLUORO NO RAD <1HR - RADIOLOGY USE Routine 06/18/2016 6:21 AM EST documented in this encounter Results * XR Fluoro <1Hr - Radiology Use (06/18/2016 6:21 AM EST) Anatomical Region Laterality Modality N/A Radiographic Chelsea ging 06/18/2016 6:21 AM EST Narrative 06/18/2016 6:21 AM EST APD Historical Result Principal Shearing Shed Worker: ??MEI ??RAY IMAGE INTENSIFIER FILMS: INDICATIONS: ??Bilateral L3-4 laminectomies. FINDINGS: 20.8 seconds of fluoro time was utilized by Dr Casanova. ??Estimated dose is 2.40 rads. Three image intensifier films record the event. ??No radiologist was in attendance. Mei Arnold MD MR/rr [id number] Procedure Note Unknown - 01/25/2019 APD Historical Result Principal Shearing Shed Worker: MEI ARNOLD IMAGE INTENSIFIER FILMS: INDICATIONS: Bilateral L3-4 laminectomies. FINDINGS: 20.8 seconds of fluoro time was utilized by Dr Casanova. Estimated dose is2.40 rads. Three image intensifier films record the event. No radiologist was inattendance. Mei Arnold MD MR/rr [id number] Unknown IMG FLUORO ORDERABLE S documented in this encounter Visit Diagnoses Not on filedocumented in this encounter Care Teams Transit Mechanic Relationship Specialty Start Date End Date Reji Adams MD [facility] [place] [address] PCP - General Internal Medicine 07/13/15 documented as of this encounter
--- OUTSIDE RECORDS SUMMARY | 2024-07-09 11:16 | XMS_ITS | Encounter Summary ---
Author Organization [facility] Address [facility] [place] [address] Care Team Providers Care Showcase Trimmer Name Role Phone Reji Adams MD Primary Care Provider [phone] Reason for Visit * Reason Onset Date Comments Other 10/16/2016 order Encounter Details Date Type Department Care Team (Late st Contact Info) Description 10/16/2016 [place] [phone] Roderick Perkins MD [facility] [place] [address] Other (order) Social History Tobacco Use Types Packs/Day Years [...] encounter Miscellaneous Notes * Telephone Encounter - Cherise Oswald - 10/16/2016 2:13 PM EDT Orders faxed to Dr. Mata as instructed * Telephone Encounter - Dianelys Long - 10/16/2016 11:51 AM EDT Please change fluoro order from R shoulder to L shoulder and fax order to [facility] pain clinic Dr Mata at [phone] documented in this encounter Plan of Treatment Upcoming Encounters Date Type Department Care Team (Late st Contact Info) Description 12/15/2024 11:30 AM EDT Office [place] [address] Charline Ziegler MD [facility] [place] [address] documented as of this encounter Visit Diagnoses Not on filedocumented in this encounter Care Teams Showcase Trimmer Relationship Specialty Start Date End Date Reji Adams MD [facility] GENERAL [place] [address] PCP - General General Internal Medicine 07/13/15 documented as of this encounter
--- OUTSIDE RECORDS SUMMARY | 2024-07-09 11:16 | XMS_ITS | Encounter Summary ---
Author Organization [facility] Address [facility] [place] [address] Care Team Providers Care Compliance Professional Name Role Phone Reji Adams MD Primary Care Provider [phone] Reason for Visit * Reason Comments Numbness on left side of the face. Left ear problems. Encounter Details Date Type Department Care Team (Late st Contact Info) Description 09/30/2016 2:30 PM EST Office Visit Internal Medicine at [place] [id number] Jean-Pierre Bui MD [facility] [place] [address] Intermittent claudication (Primary Dx); Panic attack Social History Tobacco Use Types Packs/Day Years [...] Sign Reading Time Taken Comments Blood Pressure 117/67 09/30/2016 2:31 PM EST Pulse 67 09/30/2016 2:31 PM EST Temperature 36.7 ??C (98.1 ??F) 09/30/2016 2:31 PM ES T Respiratory Rate 18 09/30/2016 2:31 PM EST Oxygen Saturation 100% 09/30/2016 2:31 PM EST Inhaled Oxygen Concentration - - Weight 98.2 kg (216 lb 9.6 oz) 09/30/2016 2:31 P M EST Height - - Body Mass Index 31.08 09/19/2016 2:24 PM EST documented in this encounter Patient Instructions * Patient Instructions* Jean-Pierre Bui MD - 09/30/2016 3:49 PM EST Panic attack treatment with sertraline 25 mg daily, start with 1/2 tablet for the first 3 days, then if tolerating well, continue with 1 full tablet. documented in this encounter Progress Notes * Jean-Pierre Bui MD - 09/30/2016 2:30 PM EST ESTABLISHED PATIENT VISIT I. HISTORY a. Reason(s) for Visit: Ken Cole 70 y.o. male who presents today due to complaint(s) of lowerextremity weakness, decreased exercise tolerance, pain around the left side of the ear in the back,among other complaints. b. History of Present Illness:[] Patient noted to be apparently at baseline until about 2 years ago, when he had a significant fall,per patient. At that time, patient has been having gait instability, was evaluated, then was referred to have a cervical procedure by neurosurgery for symptomatic cervical radiculopathy. Afterwards, patient has been having improvement in his symptomology for a few months, only to have LE weakness and difficultywith ambulation. Patient at this time had imaging for which was referred to neurosurgery for a lumbar L3-L4 stenosis, now s/p decompression in 05/2016. Patient, at follow up visit had been having improvement in his symptoms, but now since a few weeks, patient has been noticing come exercise intolerance. Patient's complaints as described by him are that he is not able to walk as far as he used to. After questioning him in depth, patient notes to have significant amount of LE muscle weakness in the distal portions after the activity, not during. Notes that along with these symptoms, patient feels slightly overwhelmed with fatigue and symptoms last a few hours. Notes improvement with xanax. Patient also notes to have other complaints of left sided ear pain/ discomfort associated with sharp pain that happens in the left side of the face that lasts for few seconds and is recurrent. One important thing is that patient had been noticing some increased anxiety requiring more regularusage of xanax than usual. Notes that all the medial issues is worsening is anxiety. All the above symptoms seem to come in episodes and have been making the patient anxious. Of note- patient also has history of UE neurologic/sensory issues for which he had had imaging/MRI/nerve conduction studies and also had a carpal tunnel correction which, per him, limited improvement. c. Review of Systems: Constitutional - no fevers, chills, weight loss or gain. Cardiovascular - No CP, palpitations, angina, MARTIN, SOB Respiratory - No SOB, MARTIN, wheeze, cough, sputum production HEENT - No diffculty swallowing, hearing, No nasal congestion or postnasal drip Gastrointestinal - No abdominal pain, nausea, GERD, constipation, diarrhea, blood in stool Musculoskeletal- Notes to have some pain in the left ear, around the mastoid region, with hearing difficulty and tinnitus that are chronic. LICENSED GUIDE- Notes to have chronic right sided UE sensory loss for which imaging and nerve conduction studies have been done. Also has some weakness that in the LE distal regions that is noticed after activity, and improves after xanax. All other systems negative d. PMH Patient Active Problem List Diagnosis ??? Shoulder pain, bilateral ??? Right arm numbness ??? Right hand pain ??? Peripheral neuropathy Diagnosis in progress, decrease in sharp sensation, and vibratory sensation in b/l feet ??? Numbness Lateral three digits of R hand ??? Urinary urgency W/ hesitency, given duration, likely BPH ??? Fatigue Short duration ??? Cervical stenosis of spinal canal ??? Finger pain ??? Ileitis ??? Back pain ??? Depression ??? Left [...] of beer per week II. PHYSICAL EXAM: Vitals: 09/30/16 1431 BP: 117/67 Pulse: 67 Resp: 18 Temp: 36.7 ??C (98.1 ??F) General - No acute distress, conversing without difficulty. Eyes - EOMI. No scleral icterus Ears- TM clear with some signs of visible capillaries, noted to have some prominence in the middle ear bones. No s/s of infection or effusion. Neck - Diminished ROM, some muscle spasm noted to have some left neck. Slight mastoid tenderness around the muscle tendon. Lungs - Clear to auscultation and percussion. Heart - RRR, S1,S2, no murmur, gallop or rub. Abdomen/GI - Soft, nontender, normal active bowel sounds, neg hsm or masses. Extremities - No clubbing, cyanosis or edema. Pulses slightly diminished. Patient having some diminished capillary refill. LICENSED GUIDE- no sensory loss, even left and right UE intact throughout. Noted to have 5/5 in all extremities. Back examination- Some paraspinal tenderness in the right side, around the thoracolumbar region. III. ASSESSMENT/PLAN:Ken Cole 70 y.o. male presenting with multiple complaints Distal Lower extremity weakness Exercise intolerance Has a lot of orthopedic and neurologic/neurosurgical issues in the past Notes to have some worsening symptoms for about 1-2 months. Patient notes to have some exercise intolerance, where he feels fatigued with distal lower extremity weakness after exercise. Notes his tolerance to be about 1/4th mile as opposed to 1 mile in the past Currently also has other symptoms as noted above and below that happen in episodes. Patient seems to be be more anxious now than in the past, with stressors in his personal life as well as with all the medical issues that have been happening and have not been resolved. O/E- refer above Impression- Likely due to multiple complaints, episodic nature, panic attacks and anxiety causing exacerbation in the sensitivity in the symptoms. Due to diminished pulses and capillary refill times along with history of multiple risk factors and an atypical description of a claudication-type pain,need to rule out PAD causing claudication as a cause of his symptomology. Plan- Ankle-brachial index at the vascular lab Treatment of panic attacks with sertraline 25 mg daily, with 12.5 mg in the first 3 days Continue xanax as needed for anxiety Follow up for a wellness examination Advised to follow up with neurosurgery and orthopedics as scheduled Left ear pain and neck pain Long history of tinnitus and hearing loss more in the left ear than the right. Seen by ENT physician and had an audiometry evaluation showing the similar findings per patient. Had occupational exposure as he worked in a [employer] and had a lot of exposure to loud noise This ear pain and the neck pain has been ongoing for weeks and is now more bothersome Patient notes also to have episodes of facial sharp pain that is sensitive to touch that lasts a few seconds, but are self-remitting. All the above symptoms happen in symptoms, except the neck/ear pain. O/E- as above Impression- Likely a muscle spasm causing the pain in the neck also possible due to multiple symptoms that are episodic, panic attack and anxiety contributing. Plan- Advised to have icy-hot patches or local heat application to relieve pain Treatment of panic attacks/anxiety as above Case discussed with attending physician. * Shante Richardson MD - 09/30/2016 2:30 PM EST I have seen the patient and reviewed the resident's above history and I agree with the details as written. The assessment and plan were formulated in discussion with me and I agree with them as documented. Pertinent History: Difficulty walking; has had spine surgery x 2 in the last year, cervical and lumbar ( laminetomy for lumbar stenosis); symptoms start not during walkning, but after walking; ge feels generally weak and gets anxious about it Pertinent Exam: BP 117/67 (BP Location (NBP): Left arm, Patient Position: Sitting, BP Cuff Sizes: Large Adult (32-43 cm)) Pulse 67 Temp 36.7 ??C (98.1 ??F) (Oral) Resp 18 Wt 98.2 kg (216 lb 9.6 oz) SpO2 100% BMI 31.08 kg/m2 Absence of pedal pulses, capillary refill delayed but present, feet wam Major issues addressed: R/o arterial insufficiency , check EMILEE; discussed anxiety, long standing with recent exacerbation Plan: ABIs; start sertraline low dose. documented in this encounter Plan of Treatment Upcoming Encounters Date Type Department Care Team (Late st Contact Info) Description 12/15/2024 11:30 AM EDT Office Visit Gastroenterology [place] [address] Charline Ziegler MD [facility] [place] [address] documented as of this encounter Results * EMILEE, legs, multiple levels (10/10/2016 3:08 PM EDT) VB Text Report Department: Vascular Surgery Lab Patient: [id number] (KEN COLE) CPT: 97612 ICD10: I73.9 Referring Physician: SHANTE SIFUENTES ?? [...] in this encounter Visit Diagnoses Diagnosis Intermittent claudication- Primary Peripheral vascular disease, unspecified Panic attack Panic disorder without agoraphobia documented in this encounter Care Teams Compliance Professional Relationship Specialty Start Date End Date Reji Adams MD [facility] [place] [address] PCP - General General Internal Medicine 07/13/15 documented as of this encounter
--- OUTSIDE RECORDS SUMMARY | 2024-07-09 11:16 | XMS_ITS | Encounter Summary ---
Author Organization [facility] Address [facility] [place] [address] Care Team Providers Care Green Belt Name Role Phone Reji Adams MD Primary Care Provider [phone] Reason for Visit * Reason Comments Fatigue urinary frequency. Feeling like crap. Encounter Details Date Type Department Care Team (Late st Contact Info) Description 11/22/2016 11:20 AM EDT Office Visit Internal Medicine at [address] [address] Reji Adams MD [facility] [place] [address] Urinary frequency; Mixed anxiety and depressive disorder Social History Tobacco Use Types Packs/Day Years [...] Sign Reading Time Taken Comments Blood Pressure 105/69 11/22/2016 11:22 AM EDT Pulse 75 11/22/2016 11:22 AM EDT Temperature 36.9 ??C (98.4 ??F) 11/22/2016 1 1:22 AM EDT Respiratory Rate 16 11/22/2016 11:2 2 AM EDT Oxygen Saturation 100% 11/22/2016 11: 22 AM EDT Inhaled Oxygen Concentration - - Weight 96.1 kg (211 lb 12.8 oz) 017 11:22 AM EDT Height - - Body Mass Index 29.54 11/07/2016 3:12 PM EDT documented in this encounter Progress Notes * Reji Adams MD - 11/22/2016 11:20 AM EDT ESTABLISHED PATIENT VISIT I. HISTORY a. Reason(s) for Visit: Ken Mckeon 71 y.o. male who presents today due to complaint(s) of: Chief Complaint Patient presents with ??? Fatigue urinary frequency. Feeling like crap. b. History of Present Illness:[] Pt is not feeling well. Pt states is feeling very tired over the last 3-4 days. States wants to just lay around. Is urinating more than usual. Is feeling more anxious also. Has a decreased appetite also. Is taking more xanax at night and even taking it during the day now. Pt has had similar complaints many times before with negative workup. Labs all normal in Aug. Upon further discussion pt feelsthat mostly is depression causing his symptoms. Is fearful of medications blake sexual side effects. Is agreeable to trial wellbutrin extended release. c. Review of Systems: Constitutional - no [...] beer per week II. PHYSICAL EXAM: BP 105/69 Pulse 75 Temp 36.9 ??C (98.4 ??F) (Oral) Resp 16 Wt 96.1 kg (211 lb 12.8 oz) SpO2 100% BMI 29.54 kg/m2 General - No acute distress, conversing without difficulty. ENT - oropharynx without lesions. Eyes - EOMI. No scleral icterus Extremities - No clubbing, cyanosis or edema. U/a: normal III. ASSESSMENT/PLAN:Ken Mckeon 71 y.o. male presenting with likely depression and anxiety. Will trial wellbutrin xl given pt's biggest fear is sexual side effects. Ken was seen today for fatigue. Diagnoses and all orders for this visit: Urinary frequency - POCT urine dipstick Depression - Start buPROPion (WELLBUTRIN XL) 150 mg Tablet Sustained Release 24 hr; Take 1 tablet by mouth every morning. F/u 1 [facility] Meds reconciled documented in this encounter Plan of Treatment Upcoming Encounters Date Type Department Care Team (Late st Contact Info) Description 12/15/2024 11:30 AM EDT Office Visit [place] [phone] Charline Ziegler MD [facility] [place] [address] documented as of this encounter Procedures Procedure Name Priority Date/Time Associated Diagnosis Comments POCT URINE DIPSTICK Routine 11/22/2016 1 2:10 PM EDT Urinary frequency documented in this encounter Results * POCT urine dipstick (11/22/2016 12:10 PM EDT) POC Sp Cool 1.020 1.002 - 1.030 POC pH, UA 5 [...] Blood, UA neg Negative - Negative denise/uL 11/22/2016 12:1 0 PM EDT Reji Adams MD POINT OF CARE TEST O RDERABLES documented in this encounter Visit Diagnoses Diagnosis Urinary frequency 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
--- OUTSIDE RECORDS SUMMARY | 2024-07-09 11:16 | XMS_ITS | Encounter Summary ---
Author Organization [facility] Address [facility] [place] [address] Care Team Providers Care Wireless Development Manager Name Role Phone Reji Adams MD Primary Care Provider [phone] Encounter Details Date Type Department Care Team (Late st Contact Info) Description 10/11/2016 Orders [place] [phone] Abbie Butcher PA [facility] [place] [address] Right shoulder pain, unspecified chronicity Social History Tobacco [...] 11:30 AM EDT Office [place] [phone] Charline Ziegler MD [facility] GASTROENTEROLOGY [place], [place] [phone] documented as of this encounter Visit Diagnoses Diagnosis Right shoulder pain, unspecified chronicity documented in this encounter Care Teams Wireless Development Manager Relationship Specialty Start Date End Date Reji Adams MD [facility] [place] [address] PCP - General General Internal Medicine 07/13/15 documented as of this encounter
--- OUTSIDE RECORDS SUMMARY | 2024-07-09 11:16 | XMS_ITS | Encounter Summary ---
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 Mary Lazaro PA [address] [facility] [place] [address] [facility] [address] [place] [address] Referral ID Status Reason Start Date Expiration Date V isits Requested Visits Authorized [id number] Closed Consult, Test & Treat 10/21/2016 10/21/2017 2 2 Encounter Details Date Type Department Care Team (Late st Contact Info) Description 11/07/2016 1:53 PM EDT - 11/07/2016 11:59 PM EDT Hospital En[place] [address] Venkata Thomas, RVT Varicose vein of leg Discharge Disposition: Home Social History Tobacco Use [...] 3 times daily as needed. 03/19/2018 Saw [place] 500 mg capsule Take 500 mg by [...] 11:30 AM EDT Office [place] [address] Charline Ziegler MD [facility] [place] [place] [address] documented as of this encounter Procedures Procedure Name Priority Date/Time Associated Diagnosis Comments UNLATERAL VALVULAR INCOMP Routine 11/07/2016 2:05 PM EDT Varicose vein of leg documented in this encounter Results * LE Unilateral Valvular Incomp Study (11/07/2016 2:05 PM EDT) VB Text Report Department: Vascular Surgery Lab Patient: [id number] (KEN COLE) CPT: 42626 ICD10: I87.2;I83.811;I83 .90 Referring Physician: SUKUMAR WINSLOW ?? Indications: h/o Right leg vein stripping 2011 and venous insufficiency now with varicose veins and right thigh pain; ? venous reflux ICD10 Diagnosis Code: I87.2, I83.811, I83.90 Findings: Right ?Reflux? ?? Common Femoral Vein ??Reflux ?? Femoral Vein ? Reflux ?? Popliteal ?Reflux ?? Interpretation: RIGHT: There is reflux in the common femoral vein (>4.0 seconds), femoral vein in the thigh (>3.6 seconds), and popliteal vein (>3.2 seconds) consistent with deep venous valvular incompetence. No evidence of common femoral, femoral, or popliteal DVT. No identifiable change when compared to the previous exam done 12/06/2011. Great saphenous vein previously stripped. Small saphenous vein was not visualized (possibly stripped per patient). There is a varicose vein on the distal, lateral thigh to knee region with reflux (>3.8 seconds) consistent with superficial venous valvular incompetence. Electronically Signed by: MORIS HOLLAND on 2016-11-07 05:40:27 PM VASCUBASE VB Text Report End of Report VASCUBASE 11/07/2016 2:05 PM EDT Sukumar Winslow MD VASCULAR ORDERABLES VASCU[facility] documented in this encounter Visit Diagnoses Diagnosis Varicose vein of leg Asymptomatic varicose veins documented in this encounter Care Teams Internal Communications Writer Relationship Specialty Start Date End Date Reji Adams MD [facility] [place] [address] PCP - General General Internal Medicine 07/13/15 documented as of this encounter
--- OUTSIDE RECORDS SUMMARY | 2024-07-09 11:16 | XMS_ITS | Encounter Summary ---
Author Organization [facility] [place] [address] Care Team Providers Care Shellfish Processing Laborer Name Role Phone Reji Adams MD Primary Care Provider [phone] Reason for Visit * Reason Comments Pre-op Exam Encounter Details Date Type Department Care Team (Late st Contact Info) Description 06/12/2016 9:40 AM EST Office Visit Internal Medicine at [address] [address] Qian Power, [facility] [place] [address] Preoperative cardiovascular examination; Lumbar stenosis Social History Tobacco Use Types Packs/Day Years [...] Sign Reading Time Taken Comments Blood Pressure 120/75 06/12/2016 9:24 AM EST Pulse 71 06/12/2016 9:24 AM EST Temperature 36.8 ??C (98.3 ??F) 06/12/2016 9:24 AM ES T Respiratory Rate 16 06/12/2016 9:24 AM EST Oxygen Saturation 100% 06/12/2016 9:24 AM EST Inhaled Oxygen Concentration - - Weight 97.1 kg (214 lb) 06/12/2016 9:24 AM EST Height - - Body Mass Index 30.71 05/16/2016 8:00 AM EDT documented in this encounter Progress Notes * 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 Casanova for pre-operative evaluation for lumbar spine surgery on June 18, 2016. HPI: He reports that he has history of stenosis in his legs. He has altered balance and numbness inhis legs. He has had the symptoms for a long time. He has history of lumbar fusion in the past. Patient Active Problem List Diagnosis Code ??? 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 Cataract extraction status of left eye Z98.42 ??? OA (osteoarthritis) of knee M17.9 ??? Lightheadedness R42 ??? 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 Anxiety F41.9 ??? Neck pain M54.2 ??? Insomnia G47.00 ??? Cervical radiculopathy M54.12 ??? Left shoulder pain M25.512 ??? Depression F32.9 ??? Back pain M54.9 ??? Ileitis K52.9 ??? Finger pain M79.646 ??? Cervical stenosis of spinal canal M48.02 ??? Peripheral neuropathy G62.9 ??? Numbness R20.0 ??? Urinary urgency R39.15 ??? Fatigue R53.83 ??? Right hand pain M79.641 ??? Right arm numbness R20.2 ??? Shoulder pain, bilateral M25.511, M25.512 Past Surgical History Procedure Laterality Date ??? Created by interface Past surg hx. Procedure Date: 09/19/2010 ??? Pro ligate/strip long saph vein belw sep-fem junc 06/02/2012 LIGATION\DIV\STRIP GREATER SAPHENOUS VEIN performed by BEATRICE RODRÍGUEZ at [facility] MAIN OR ??? Pro phleb veins - extrem - to 20 06/02/2012 STAB PHLEBECTOMY KARLI VEINS, EXTREMITY 10-20 INCISIONS-SANTI performed by BEATRICE RODRÍGUEZ at [facility] MAIN OR ??? Pro colonoscopy, diagnostic 09/07/2013 COLONOSCOPY, DIAGNOSTIC performed by Ximena Gu MD at [facility] ENDOSCOPY Family History Problem Relation Age of Onset ??? Cancer Mother bone ??? Diabetes Father ??? Cancer Father testicular Social History Narrative None on file ROS: Personal or Fam Hx bleeding clotting disorders: None. Sedation, anesthesia history: None. GEN: no chills, fevers, fatigue, or unexplained weight loss EYES: no visual changes ENT: no new ear pain, congestion, difficulty swallowing, or hearing issues Dentition: no dental infections NECK: no masses CV: no chest pain, extremity edema; history of intermittent palpations that are not new or different. No MARTIN; METS > 4 PULM: no cough, wheeze, SOB GI: no N/V/D. Some constipation, taking benefiber and helps. He is eating. He had some abdominal pain a couple of weeks ago, but that is better. : no frequency, urgency, dysuria GENITALIA: no testicular pain or swelling. MSK: no pain, stiffness, change in activity/strength NEURO: no RANDALL, dizziness, numbness, or weakness SKIN: no rashes PSYCH: History of anxiety, stable at this time. Current Outpatient Prescriptions Medication Sig Dispense Refill ??? metroNIDAZOLE (METROCREAM) 0.75 % Cream Apply topically as needed. ??? ibuprofen (ADVIL) 200 mg tablet Take 400 mg by mouth every 6 hours as needed. ??? ALPRAZolam (XANAX) 0.25 mg tablet Take 0.25 mg by mouth 3 times daily as needed. ??? multivitamin (THERAGRAN) tablet Take 1 tablet by mouth daily. ??? Saw [place] 500 mg capsule Take 500 mg by mouth daily. ??? Mavis Extract 500 mg Cap Take 1 capsule by mouth daily. ??? naproxen sodium (ALEVE) 220 mg tablet Take 220 mg by mouth as needed. No current facility-administered medications for this visit. Allergies Allergen Reactions ??? Penicillins Tongue swelling Physical Exam: Vitals: 06/12/16 0924 BP: 120/75 BP Location (NBP): Left arm Patient Position: Sitting BP Cuff Sizes: Large Adult (32-43 cm) Pulse: 71 Resp: 16 Temp: 36.8 ??C (98.3 ??F) TempSrc: Oral SpO2: 100% Weight: 97.1 kg (214 lb) GEN: AAOx3, NAD EYES: PERRL, EOMI, sclera anicteric ENT: TMs nl, canals clear, pharynx clear without lesions/exudate, dentition normal NECK: supple, no masses, no thyromegaly LYMPHATIC: nl cervical HEART: RRR, no murmurs, no pretibial edema LUNGS: CTA bilat ABD: BS nl, soft, nontender, no masses, or organomegaly MSK: ROM/strength equal and nl x 4 extremities NEURO: CN II-XII nl, DTRs 2+/4+ x 4 ext, gait normal SKIN: warm, dry, no masses,or lesions PSYCH: affect and interaction appropriate Assessment: 70 y.o. pre-operative physical exam. Risk : Low risk for this intermediate risk procedure. Plan: Hold ASA, NSAIDS, herbals, supplements 7 days prior to procedure. Meds to hold, adjust dose: Aleve and advil. Labs: CBC and CMP done on 05/29/16 and were normal Tests: Nuclear Stress Test done on 03/22/16 that was negative. EKG: EKG done on 03/20/16 showed no evidence of ischemia. Bifascicular block was present and unchanged from previous EKGs done. Chest xray at that time was negative as well. Beta manuel: not indicated Bennie Revised Cardiac Risk Index Risk Factors Predicted CV Risk ( ) High Risk surgery ( ) Ischemic Heart Disease ( ) History of CHF ( ) History of CVD ( ) Insulin use ( ) Creat > 2.0 ( x) 0 risk factors (0.5%) ( ) 1 risk factor (1.3%) ( ) 2 risk factors (3.6%) ( ) 3 risk factors (10+%) Major Clinical Predictors Clinical Risk Factors ( ) Unstable ASCVD ( ) Decomp CHF ( ) Significant arrythmia ( ) Severe Valvular Disease (x ) None ( ) ASCVD ( ) Compensated CHF ( ) Diabetes ( ) Renal Insufficiency ( ) Cerebrovascular disease ( x) None Functional Capacity Surgical Risk (x ) Good Do light housework Climb a flight of stairs Walk on level ground at 4 mph Run a short distance Scrub floors / move heavy furniture Moderate recreational activities ( ) Poor Perform ADL's Walk indoors Walk a block at 2-3 mph ( ) Unknown ( ) High / Vascular major emergency surgery aortic and other major vascular surgery peripheral vascular surgery (X) Intermediate intraperitoneal and intrathoracic carotid endarterectomy head and neck surgery orthopedic surgery prostate surgery ( ) Low Exercise Tolerance Clinical Risk Factors Surgical Risk Further Testing x Good -- ANY -- -- ANY -- NO Poor / Unknown 3 or more High / Vascular YES Poor / Unknown Intermediate HR Control, consider non-invasive testing Poor / Unknown 1 or 2 -- ANY -- HR Control, consider non-invasive testing Poor / Unknown None -- ANY -- NO Previous PCI Action (x ) No previous PCI Proceed ( ) Balloon Angioplasty Delay if < 2 weeks ( ) Bare Metal Stent Delay if < 1 month ( ) Drug eluting stent Delat if < 1 year ( ) Dyspnea of unknown origin ( ) CHF with worsening dyspnea or clinical status ( ) Preopertative Echo ( ) High risk / Vascular procedure ( ) Intermediate procedure with 1+ clinical risk factors ( ) Preoperative EKG ( ) High / Intermediate risk procedure with 1+ clinical risk factor ( ) Add perioperative beta blockers ( ) Continue current beta manuel regimen ( ) Beta blockers contrindiacted ( ) Add perioperative Alpha-2 Agonist therapy ( ) High / Intermediate risk procedure with 1+ clinical risk factor ( ) Add statin therapy ( ) Continue current statin therapy ( ) Statin therapy not recommended ( ) Diabetes ( ) Target glucose <180 (General surgery) ( ) Target glucose <150 (Cardiac) ( ) Target glucose <110 (ICU, Neuro) ( ) Insulin drip recommended ( x) None of the above documented in this encounter Plan of Treatment Upcoming Encounters Date Type Department Care Team (Late st Contact Info) Description 12/15/2024 11:30 AM EDT Office [place] [phone] Charline Ziegler MD [facility] [place] [address] documented as of this encounter Visit Diagnoses Diagnosis Preoperative cardiovascular examination Pre-operative cardiovascular examination Lumbar stenosis Spinal stenosis, lumbar region, without neurogenic claudication documented in this encounter Care Teams Shellfish Processing Laborer Relationship Specialty Start Date End Date Reji Adams MD [facility] [place] [address] PCP - General General Internal Medicine 07/13/15 documented as of this encounter
--- OUTSIDE RECORDS SUMMARY | 2024-07-09 11:16 | XMS_ITS | Encounter Summary ---
Author Organization [facility] Address [facility] [place] [address] Care Team Providers Care Mold Presser Name Role Phone Reji Adams MD Primary Care Provider [phone] Reason for Visit * Reason Comments Right Elbow Pain * Consultation (Routine) - Closed Specialty Diagnoses / Procedures Referred By Contsushma t Referred To Contact Orthopaedics Diagnoses RIGHT ELBOW NUMBNESS AND PAIN INCREASING Procedures NONE Presley Mckee [place] [place] [address] Roderick Perkins MD [facility] [place] [address] Referral ID Status Reason Start Date Expiration Date V isits Requested Visits Authorized [id number] Closed Consult, Test & Treat 08/23/2016 08/23/2017 1 1 Encounter Details Date Type Department Care Team (Late st Contact Info) Description 10/03/2016 8:00 AM EST Office [place] [address] Roderick Perkins MD [facility] [place] [address] Right arm numbness Social History Tobacco Use Types Packs/Day Years Used Date Smoking Tobacco: Never Smokeless Tobacco: Current Chew Tobacco Cessation:Ready to Q uit: Yes; Counseling Given: No Comments:3 cans/ week. Alcohol Use Standard Drinks/Week [...] Reading Time Taken Comments Blood Pressure 115/70 10/03/2016 8:00 AM EST Pulse 69 10/03/2016 8:00 AM EST Temperature - - Respiratory Rate - - Oxygen Saturation - - Inhaled Oxygen Concentration - - Weight 97.1 kg (214 lb) 10/03/2016 8:00 AM EST v erbal Height 180.3 cm (5' 11) 10/03/2016 8:00 AM EST verbal Body Mass Index 29.85 10/03/2016 8:00 AM EST documented in this encounter Progress Notes * Cherise Fuentes PA - 10/03/2016 8:00 AM EST This 70-year-old gentleman refers for evaluation of right hand and arm numbness and tingling. He is right hand dominant. He has been having symptoms for approximately a year and a half now. He has numbness from the right axilla down into his hand. He points to more the dorsum of his hand and into the thumb, index, and long fingers. He will note some numbness and tingling in the tips of these fingers also. He initially denies any numbness and tingling in the ring and small fingers, but then later when talking with Dr. Perkins, does admit to some pins and Wellman, numbness and tingling in the tips of the ring and small fingers on the right hand. Patient has, since we have last seen him, underwent cervical spine surgery and ACDF, I do not have those levels available to me today, and right carpal tunnel release. His symptoms have not changed following these 2 surgeries, per his account. He finds that his hand will fall asleep if he is talking on the phone. He has a lot of sensitivity and tenderness in the elbow. Examination today with Dr. Perkins shows that he admits to some slightly altered sensation in the biceps muscle area and then into the anterior forearm. He has decreased sensation in the median nerve distribution at this time, full range of motion of the fingers. He has slightly decreased range of motion of the right elbow due to pain. He can get to just about full extension and flexion. He also notes that he has had a locking type sensation in the elbow the past few days where it feels as if more soft tissue gets hung up and it feels like it is mechanically locked. This is new in nature though. He does have a positive Tinel's and tenderness in one spot in the ulnar groove. Negative elbow flexion test today. Negative Froment's, negative Wartenberg's sign. MRI taken previously of his elbow shows degenerative changes. It does show also some altered signal of the ulnar nerve as it comes through the cubital tunnel. IMPRESSION: Right hand and arm numbness and tingling. Etiology unclear. TREATMENT: Patient has had a neurology evaluation with EMGs done at [facility]. We will obtain those. His symptoms are not clear cut for ulnar neuropathy, though this may be part of his issue. We have recommended use of a Heelbo elbow pad during the day as needed and at night in reverse. We will obtain his electrical studies and plan on seeing him back in 6 weeks. If electrical studies are suggestive of ulnar neuropathy and he has not had improvement with the Heelbo, then we could consider cubital tunnel release. The patient was comfortable with this plan. He also notes that he has had on the right hand only somewhat of a pill-rolling type of tremor when the hand is at rest. We advised that this would be something that would be evaluated by Neurology. documented in this encounter Plan of Treatment Upcoming Encounters Date Type Department Care Team (Late st Contact Info) Description 12/15/2024 11:30 AM EDT Office Visit [place] [address] Charline Ziegler MD [facility] [place] [address] documented as of this encounter Visit Diagnoses Diagnosis Right arm numbness Disturbance of skin sensation documented in this encounter Care Teams Mold Presser Relationship Specialty Start Date End Date Reji Adams MD [facility] GENER[facility] [place] [address] PCP - General General Internal Medicine 07/13/15 documented as of this encounter
--- OUTSIDE RECORDS SUMMARY | 2024-07-09 11:16 | XMS_ITS | Encounter Summary ---
Author Organization [facility] [place] [address] Care Team Providers Care Cartographic Drafter Name Role Phone Reji Adams MD Primary Care Provider [phone] Encounter Details Date Type Department Care Team (Late st Contact Info) Description 03/03/2017 Telephone Internal Medicine at [address] [address] Amrita Rodriguez RN Social History Tobacco Use Types Packs/Day [...] Telephone Encounter - Amrita Rodriguez RN - 03/03/2017 1:53 PM EDT Patient describes onset of pain in right groin area this weekend, reminds him of the hernia pain but somewhat different this time. Unable to palpate a bulge or tender area. Pain can be 8/10, shootingpain, then it subsides and sometimes goes away. Cannot associate with any movement or position. He reports he has had 2 hernia repairs in the past, same side, aware that he could have scarring or this could be a kidney stone. Also c/o frequent urination, no blood in urine, back pain, fever/chills. Urine culture 02/25 negative. He had called Urology who told him to call PCP. Scheduled tomorrow with Dr Vo. Advised to go to ED if pain becomes acute. documented in this encounter Plan of Treatment Upcoming Encounters Date Type Department Care Team (Late st Contact Info) Description 12/15/2024 11:30 AM EDT Office [place] [address] Charline Ziegler MD [facility] [place] [address] documented as of this encounter Visit Diagnoses Not on filedocumented in this encounter Care Teams Cartographic Drafter Relationship Specialty Start Date End Date Reji Adams MD [facility] [place] [address] PCP - General General Internal Medicine 07/13/15 documented as of this encounter
--- OUTSIDE RECORDS SUMMARY | 2024-07-09 11:16 | XMS_ITS | Encounter Summary ---
Author Organization [facility] [place] [address] Care Team Providers Care Pulp Piler Name Role Phone Reji Adams MD Primary Care Provider [phone] Encounter Details Date Type Department Care Team (Late st Contact Info) Description 08/12/2016 Interpretation Only Radiology [address] [place] [address] [place] [id number] Unknown None Social History Tobacco Use Types [...] 11:30 AM EDT Office Visit [place] [address] Charline Ziegler MD [facility] [place] [address] documented as of this encounter Procedures Procedure Name Priority Date/Time Associated Diagnosis Comments XR INJECTION FACET CERVICAL AND THORACIC Routine 08/12/2016 8:52 AM EST documented in this encounter Results * XR INJECTION FACET CERVICAL AND THORACIC (08/12/2016 8:52 AM EST) Anatomical Region Laterality Modality Other 08/12/2016 8:52 AM EST Narrative 08/12/2016 8:52 AM EST APD Historical Result Principal Residential Solar Consultant: ??REJI ?[place] C-ARM IMAGES OF SPINAL INJECTION: Total fluoro time was 9.5 seconds with a cumulative dose of 2.20 mGy. Two images are acquired, which demonstrate a needle in the midline at what appears to be the C7/T1 level. ??A small amount of contrast identified around the needle tip on one of the images. ??Note is made of an anterior fixation plate from C3 to C5 with no hardware complications. ??Diffuse degenerative changes are noted in the cervical spine. IMPRESSION: Spinal injection as described above. ??Correlation with the procedure report by the performing physician Dr Anmol Mata is recommended. Reji Escobar MD DP/rr [id number] Procedure Note Unknown - 01/25/2019 APD Historical Result Principal Residential Solar Consultant: REJI ESCOBAR C-ARM IMAGES OF SPINAL INJECTION: Total fluoro time was 9.5 seconds with a cumulative dose of 2.20 mGy. Two images are acquired, which demonstrate a needle in the midline at whatappears to be the C7/T1 level. A small amount of contrast identified around the needle tipon one of the images. Note is made of an anterior fixation plate from C3 to C5 with no hardwarecomplications. Diffuse degenerative changes are noted in the cervical spine. IMPRESSION: Spinal injection as described above. Correlation with theprocedure report by the performing physician Dr Anmol Mata is recommended. Reji Escobar MD DP/rr [id number] Unknown PACS IMAGES documented in this encounter Visit Diagnoses Not on filedocumented in this encounter Care Teams Pulp Piler Relationship Specialty Start Date End Date Reji Adams MD [facility] [place] [address] PCP - General General Internal Medicine 07/13/15 documented as of this encounter
--- OUTSIDE RECORDS SUMMARY | 2024-07-09 11:16 | XMS_ITS | Encounter Summary ---
Author Organization [facility] Address [facility] Ximena [place] [address] Care Team Providers Care Outreach Liaison Name Role Phone Reji Adams MD Primary Care Provider [phone] Encounter Details Date Type Department Care Team (Late st Contact Info) Description 10/30/2016 2:40 PM EDT Office [place] [address] Mary Ny MD [facility] [place] [place] [address] Otalgia of left ear Social History Tobacco Use Types Packs/Day Years [...] Sign Reading Time Taken Comments Blood Pressure 126/74 10/30/2016 2:32 PM EDT Pulse 76 10/30/2016 2:32 PM EDT Temperature - - Respiratory Rate - - Oxygen Saturation - - Inhaled Oxygen Concentration - - Weight 98.4 kg (217 lb) 10/30/2016 2:32 PM EDT Height 180.3 cm (5' 11) 10/30/2016 2:32 PM EDT Body Mass Index 30.27 10/30/2016 2:32 PM EDT documented in this encounter Progress Notes * Mary Ny MD - 10/30/2016 2:40 PM EDT [facility] Otolaryngology - Head and Neck Surgery Mary Ny MD 10/31/16 4:15 PM [place], [place] [address] Office Patient Name: Ken Mckeon Date of : 1945 PCP: Reji Adams MD Chief Complaint: left otalgia History of Present Illness: Ken Mckeon is a 71 y.o. year old male seen in follow up. 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 MRI of the brain in 2014 was normal, no IAC abnormality. Also underwent CT temporal bone in April 2016 that was unremarkable. Patient notes left ear pain also radiating to the jaw. Has issues with his c-spine and mentioned his ear pain to his neurologist, did not feel they were correlated. Patient feels a stabbing pain deep in his ear at times. NSAIDs and naproxyn seem to help. Does clench his jaw at times. No fevers or chills, no numbness, no otorrhea, otherwise doing well. 10 point Review of Systems was normal [...] to Visit Medication Sig Dispense Refill ??? ibuprofen (ADVIL) 200 mg tablet Take 400 mg by mouth every 6 hours as needed. ??? ALPRAZolam (XANAX) 0.25 mg tablet Take 0.25 mg by mouth 3 times daily as needed. ??? multivitamin (THERAGRAN) tablet Take 1 tablet by mouth daily. ??? Saw [place] 500 mg capsule Take 500 mg by [...] DIAGNOSTIC performed by Ximena Gu MD at [facility] ENDOSCOPY ??? PRO LIGATE/STRIP LONG SAPH VEIN BELW SEP-FEM JUNC 06/02/2012 LIGATION\DIV\STRIP GREATER SAPHENOUS VEIN performed by BEATRICE RODRÍGUEZ at [facility] MAIN OR ??? PRO PHLEB VEINS - EXTREM - TO 20 06/02/2012 STAB PHLEBECTOMY KARLI VEINS, EXTREMITY 10-20 INCISIONS-SANTI performed by BEATRICE RODRÍGUEZ at [facility] MAIN OR Family and Social History Family History: Family History Problem Relation Age of Onset ??? Cancer Mother bone ??? Diabetes Father ??? Cancer Father testicular Social History: Lives in [place] [address] Social History Social History ??? Marital status: [...] History Narrative Physical Exam Temperature: Heart Rate: 76 Blood Pressure: 126/74 Respiratory Rate: SpO2: General: Age appropriate, healthy [...] and flat. Dentition is in good repair. However, there was tenderness to palpation over the left TMJ with tightness of the masseter muscle. Oropharynx: Symmetric without tonsillar pathology. No other concerning lesions or masses Larynx:No hoarseness or stridor. External laryngeal structures normal to palpation. Face and sinuses are non tender. Salivary glands are soft, non tender, without palpable masses. No temporomandibular joint grinding or locking. Neck: Symmetric. No scars, palpable masses, or crepitus. Midline trachea. Thyroid normal in size, non tender, no palpable mass. Lymphatic: no palpable cervical lymphadenopathy. Skin: Good skin turgor, no pallor, no icterus. Extremities: No gross deformities, no peripheral edema. Labs and Imaging Reviewed CT of the temporal bones from 04/2016: No soft tissue or bony abnormality noted, this study extends from the nasopharynx to the temporal lobe. ASSESSMENT & RECOMMENDATIONS Ken Mckeon is a 71 y.o. male with continued left otalgia. He did have tenderness over the TMJ and notes response to NSAIDs in the past. Recommendations: 1. Recommended assessment by dentist or oral surgeon 2. In the meantime, can take NSAIDs for pain, which are therapeudic as well. 3. F/u if no improvement or worsening symptoms Mary Ny MD Otolaryngology - Head and Neck Surgery 10/31/16 4:15 PM documented in this encounter Plan of Treatment Upcoming Encounters Date Type Department Care Team (Late st Contact Info) Description 12/15/2024 11:30 AM EDT Office [place] [address] Charline Ziegler MD [facility] [place] [address] documented as of this encounter Visit Diagnoses Diagnosis Otalgia of left ear Otalgia, unspecified documented in this encounter Care Teams Outreach Liaison Relationship Specialty Start Date End Date Reji Adams MD [facility] [place] [address] PCP - General General Internal Medicine 07/13/15 documented as of this encounter
--- OUTSIDE RECORDS SUMMARY | 2024-07-09 11:16 | XMS_ITS | Encounter Summary ---
Author Organization [facility] Address [facility] [place] [address] Care Team Providers Care Welding Specialist Name Role Phone Reji Adams MD Primary Care Provider [phone] Reason for Referral * Diagnostic Test (Routine) - Closed Specialty Diagnoses / Procedures Referred By Contac t Referred To Contact Radiology Diagnoses Right arm numbness Procedures MRI Elbow wo Contrast Right JannetQian huff DENTAL HYGIENE ADMINISTRATIVE ASSISTANT [facility] [address] [place] [address] [place] [address] Referral ID Status Reason Start Date Expiration Date V isits Requested Visits Authorized [id number] Closed Specialty Service Requested 09/19/2016 09/19/2017 1 1 Reason for Visit * Diagnostic Test (Routine) - Closed Specialty Diagnoses / Procedures Referred By Contac t Referred To Contact Radiology Diagnoses Right arm numbness Procedures MRI Elbow wo Contrast Right Qian Power DENTAL HYGIENE ADMINISTRATIVE ASSISTANT [facility] [address] [place] [address] [place] [address] Referral ID Status Reason Start Date Expiration Date V isits Requested Visits Authorized [id number] Closed Specialty Service Requested 09/19/2016 09/19/2017 1 1 Encounter Details Date Type Department Care Team (Latest Contact Info) Description 09/25/2016 1:04 PM EST - 09/25/2016 11:59 PM EST Hospital [place] [address] Reji Adams MD [facility] [place] [address] Right arm numbness Discharge Disposition: Home Social History Tobacco Use [...] 3 times daily as needed. 03/19/2018 Saw [place] 500 mg capsule Take 500 mg by [...] 11:30 AM EDT Office [place] [phone] Charline Ziegler MD [facility] [place] [address] documented as of this encounter Procedures Procedure Name Priority Date/Time Associated Diagnosis Comments MRI ELBOW RIGHT WO CONTRAST Routine 09/25/2016 2:53 PM EST Right arm numbness documented in this encounter Results * MRI Elbow wo Contrast Right (09/25/2016 2:53 PM EST) Anatomical Region Laterality Modality Elbow Right Magnetic Resonan ce Impressions 09/25/2016 3:07 PM EST No significant change from 08/15/2015. 1. ??Severe degenerative arthropathy, with full-thickness cartilage loss in the radiocapitellar compartment. 2. 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 3. 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 Narrative 09/25/2016 3:07 PM EST EXAMINATION: MRI ELBOW WO CONTRAST RIGHT CLINICAL HISTORY: Continued arm, elbow, and hand numbness and pain. Pain is primarily in the elbow and hand. TECHNIQUE: MRI of the right elbow was performed without intravenous contrast. COMPARISON: Right elbow MRI dated 08/15/2015. FINDINGS: Joint space: There is an elbow joint effusion, similar to on 08/15/2015.. ?? Bones and articular cartilage: Again noted is full-thickness articular cartilage loss across the radiocapitellar joint, with underlying patchy subchondral bone edema, with associated marginal osteophytes. Again noted is ulnotrochlear joint osteoarthropathy characterized by cartilage fissuring with a large marginal osteophyte arising from the proximal ulna anteriorly. There is no fracture. The alignment is normal. Ligaments and tendons: Again noted is high-grade partial tearing of the common extensor tendon origin, without retraction. Again noted is high signal in the proximal attachment of the radial collateral ligament compatible with sprain/degenerative change. The common flexor tendon and ulnar collateral ligament are normal in appearance. The lateral ulnar collateral ligament (LUCL) is normal in appearance. The biceps, brachialis, and triceps tendons are intact. Nerves: Again noted is focal high signal in the ulnar nerve within the cubital tunnel, compatible with neuropraxia. The ulnar nerve is normal in position within the cubital tunnel without evidence of extrinsic mass compression.. The median and radial nerves are normal in appearance. Procedure Note Trice Bailey MD - 09/25/2016 EXAMINATION: MRI ELBOW WO CONTRAST RIGHT CLINICAL HISTORY: Continued arm, elbow, and hand numbness and pain. Painis primarily in the elbow and hand. TECHNIQUE: MRI of the right elbow was performed without intravenouscontrast. COMPARISON: Right elbow MRI dated 08/15/2015. FINDINGS: Joint space: There is an elbow joint effusion, similar to on 08/15/2015.. Bones and articular cartilage: Again noted is full-thickness articularcartilage loss across the radiocapitellar joint, with underlying patchy subchondralbone edema, with associated marginal osteophytes. Again noted is ulnotrochlearjoint osteoarthropathy characterized by cartilage fissuring with a largemarginal osteophyte arising from the proximal ulna anteriorly. There is nofracture. The alignment is normal. Ligaments and tendons: Again noted is high-grade partial tearing of thecommon extensor tendon origin, without retraction. Again noted is high signal inthe proximal attachment of the radial collateral ligament compatible with sprain/degenerative change. The common flexor tendon and ulnarcollateral ligament are normal in appearance. The lateral ulnar collateral ligament(LUCL) is normal in appearance. The biceps, brachialis, and triceps tendons areintact. Nerves: Again noted is focal high signal in the ulnar nerve within thecubital tunnel, compatible with neuropraxia. The ulnar nerve is normal inposition within the cubital tunnel without evidence of extrinsic mass compression..The median and radial nerves are normal in appearance. IMPRESSION No significant change from 08/15/2015. 1. Severe degenerative arthropathy, with full-thickness cartilage loss inthe radiocapitellar compartment. 2. Chronic high-grade partial tear of the common extensor tendonorigin. 3. Unchanged abnormal signal in the ulnar nerve within the cubitaltunnel, compatible with neuropraxia. Reji Adams MD IMG MRI ORDERABLES documented in this encounter Visit Diagnoses Diagnosis Right arm numbness Disturbance of skin sensation documented in this encounter Care Teams Welding Specialist Relationship Specialty Start Date End Date Reji Adams MD [facility] [place] [address] PCP - General Internal Medicine 07/13/15 documented as of this encounter
--- OUTSIDE RECORDS SUMMARY | 2024-07-09 11:16 | XMS_ITS | Encounter Summary ---
Author Organization [facility] [place] [address] Care Team Providers Care Cork Insulator Helper Name Role Phone Reji Adams MD Primary Care Provider [phone] Reason for Referral * Consultation (Routine) - Closed Specialty Diagnoses / Procedures Referred By Duglas arizmendi Referred To Contact Urology Diagnoses Urinary frequency Hematuria Qian Power APRN [facility] [place] [address] [facility] [place] [address] Referral ID Status Reason Start Date Expiration Date V isits Requested Visits Authorized [id number] Closed Specialty Service Requested 02/07/2017 02/07/2018 1 1 Reason for Visit * Reason Comments Dysuria for a month Nausea going on Abdominal Pain thinks that is his h ernia acting up?? Pharyngitis yesterday Cough a little Nasal Congestion yellow in color Encounter Details Date Type Department Care Team (Late st Contact Info) Description 02/07/2017 9:00 AM EDT Office Visit Internal Medicine at [address] [address] Qian Power APRN [facility] [place] [address] Sore throat; Urinary frequency; Hematuria Social History Tobacco Use Types Packs/Day Years [...] Sign Reading Time Taken Comments Blood Pressure 112/74 02/07/2017 8:58 AM EDT Pulse 79 02/07/2017 8:58 AM EDT Temperature 36.9 ??C (98.4 ??F) 02/07/2017 8:58 AM ED T Respiratory Rate - - Oxygen Saturation 100% 02/07/2017 8:58 AM EDT Inhaled Oxygen Concentration - - Weight 94.9 kg (209 lb 3.2 oz) 02/07/2017 8:58 A M EDT shoes on Height 180.3 cm (5' 11) 02/07/2017 8:58 AM EDT reported Body Mass Index 29.18 02/07/2017 8:58 AM EDT documented in this encounter Progress Notes * Qian Power, MARYBEL - 02/07/2017 9:00 AM EDT PCP: Reji Adams MD Chief Complaint Patient presents with ??? Dysuria for a month ??? Nausea going on ??? Abdominal Pain thinks that is his hernia acting up? Pharyngitis yesterday ??? Cough a little ??? Nasal Congestion yellow in color SUBJECTIVE: Ken Mckeon is a 71 y.o. male who presents for urinary frequency x 1 month, abdominal pain, cough, sore throat and nasal congestion. Abdominal pain- he has had some frequency of urination in the last month. He feels that he cannot empty the bladder well. He does not usually drink after 2 in the afternoon and then will wake early in the morning to go to the bathroom. He has some urgency as well. He thinks that the abdominal pain is from when he had hernia in the past. Nasal congestion and sore throat- ongoing for couple of days. He reports that he was up a lot last night with symptoms. He only has slight cough, worst is throat and nasal congestion. Review of Systems Constitutional: Negative for chills and fever. HENT: Positive for congestion, rhinorrhea, sinus pressure and sore throat. Respiratory: Positive for cough. Gastrointestinal: Positive for abdominal pain and nausea (the last couple of days only). Negative for constipation, diarrhea and vomiting. Allergies Allergen Reactions ??? Penicillins Anaphylaxis Tongue swelling Current Outpatient Prescriptions Medication Sig Dispense Refill ??? ibuprofen (ADVIL) 200 mg tablet Take 400 mg by mouth every 6 hours as needed. ??? ALPRAZolam (XANAX) 0.25 mg tablet Take 0.25 mg by mouth 3 times daily as needed. ??? multivitamin (THERAGRAN) tablet Take 1 tablet by mouth daily. ??? Saw [place] 500 mg capsule Take 500 mg by [...] F41.0 ??? Otalgia of left ear H92.02 OBJECTIVE: Vitals: 02/07/17 0858 BP: 112/74 BP Location (NBP): Left arm Patient Position: Sitting BP Cuff Sizes: Large Adult (32-43 cm) Pulse: 79 Temp: 36.9 ??C (98.4 ??F) TempSrc: Oral SpO2: 100% Weight: 94.9 kg (209 lb 3.2 oz) Height: 180.3 cm (5' 11) PHYSICAL EXAM: Physical Exam Constitutional: He is oriented to person, place, and time. He appears well- developed and well-nourished. HENT: Head: Normocephalic and atraumatic. Right Ear: Tympanic membrane, external ear and ear canal normal. Left Ear: Tympanic membrane, external ear and ear canal normal. Nose: Nose normal. Right sinus exhibits no maxillary sinus tenderness and no frontal sinus tenderness. Left sinus exhibits no maxillary sinus tenderness and no frontal sinus tenderness. Mouth/Throat: Oropharynx is clear and moist. Eyes: Conjunctivae are normal. Pupils are equal, round, and reactive to light. Cardiovascular: Normal rate, regular rhythm and normal heart sounds. Pulmonary/Chest: Effort normal and breath sounds normal. No respiratory distress. He has no wheezes. He has no rales. Abdominal: Soft. Bowel sounds are normal. He exhibits no distension and no mass. There is tenderness (mid-epigastric). There is no rebound and no guarding. Lymphadenopathy: He has no cervical adenopathy. Neurological: He is alert and oriented to person, place, and time. Skin: Skin is warm and dry. Psychiatric: He has a normal mood and affect. His behavior is normal. Judgment and thought content normal. ASSESSMENT & PLAN: Ken was seen today for dysuria, nausea, abdominal pain, pharyngitis, cough and nasal congestion. Diagnoses and all orders for this visit: Sore throat - likely related to acute URI. Urinary frequency - POCT urine dipstick; Future - Bladder scan - PSA Screen; Future Hematuria - Urinalysis with reflex Culture; Future - microscopic seen on dip. Having symptoms of frequency and some urgency. - will recheck PSA today. - will refer to urology for further evaluation - post void residual in office today was 5 ml, but patient does not feel that he empties his bladder completely. - patient was seen in August with complaint of urinary frequency as well. Prostate was slightly enlarged. Lab Results Component Value Date PSA 3.40 07/07/2015 PSA 3.40 07/07/2015 PSA 2.71 11/19/2013 * Suad Kirby MA - 02/07/2017 9:00 AM EDT Post void bladder scan done on pt. Scan showed 5cc. documented in this encounter Miscellaneous Notes * Addendum Note - Mayte Salinas LNA - 02/07/2017 10:12 AM EDTAddended by: MAYTE SALINAS on: 02/07/2017 10:12 AM Modules accepted: Orders documented in this encounter Plan of Treatment Upcoming Encounters Date Type Department Care Team (Late st Contact Info) Description 12/15/2024 11:30 AM EDT Office Visit [place] [address] Charline Ziegler MD [facility] [place] [address] Scheduled Referrals Name Type Priority Associated Diagnoses Orde r Schedule Referral to Urology Outpatient Referral Routine Urinary frequency Hematuria Ordered: 02/07/2017 documented as of this encounter Procedures Procedure Name Priority Date/Time Associated Diagnosis Comments PSA SCREEN Routine 02/07/2017 11:07 AM EDT Urinary frequency URINALYSIS WITH REFLEX CULTURE Routine 02/07/2017 11:07 AM EDT Hematuria POCT URINE DIPSTICK Routine 02/07/2017 9 :05 AM EDT Urinary frequency documented in this encounter Results * (ABNORMAL) PSA Screen (02/07/2017 11:07 AM EDT) PSA Screen 4.78(H) 0.00 - 4.00 ng/mL [facility] Blood specimen (specimen) 02/07/2017 11:07 AM EDT 02/07/2017 12:20 PM EDT Narrative Resulting Agency Comment Spec In Lab Qian Power SKI PATROL DIRECTOR CHEMISTRY ORDERA BLES [facility] [place] [address] * (ABNORMAL) Urinalysis with reflex Culture (02/07/2017 11:07 AM EDT) Glucose, Urine Dipstick Negative Negative mg/dL [facility] Protein, Urine Dipstick Negative Negative mg/dL [facility] Bilirubin, Urine Dipstick Negative Negative mg/dL [facility] Comment: Clinical correlation required for positive Urine Bilirubin results as false positive may occur with some drugs and drug related products. If a false positive is suspected a serum total bilirubin should be considered if clinically indicated. Urobilinogen, Urine Dipstick Normal Normal mg/dL [facility] pH, Urn (dipstick) 6.0 5.0 - 8.0 [facility] Blood, Urine Dipstick Negative Negative mg/dL [facility] Ketone, Urine Dipstick Negative Negative mg/dL [facility] Nitrite, Urine Dipstick Negative Negative [facility] Leukocytes, Urine Dipstick Negative Negative [facility] Appearance, Urine Dipstick Hazy(A) Clear [facility] Specific [place] Urine Automated 1.020 1.002 - 1.030 [facility] Color, Urine Dipstick Yellow Yellow [facility] RBC, Urine 1 0 - 3 /HPF [facility] WBC, Urine <1 0 - 3 /HPF [facility] Bacteria, Urine Rare(A) None /HPF [facility] Reflex to Culture No [facility] Urine specimen obtained by clean catch procedure (specimen) 02/07/2017 11:07 AM EDT 02/07/2017 12:21 PM EDT Narrative Resulting Agency Comment Spec In Lab Qian Power MARYBEL URINE ORDERABLES [facility] [place] [address] * POCT urine dipstick (02/07/2017 9:05 AM EDT) POC Sp [place] 1.020 1.002 - 1.030 POC pH, UA 6 [...] neg Negative - Negative POC Blood, UA about 50 Negative - Negative denise/uL 02/07/2017 9:05 AM EDT Qian Quiñonez Jannet SKI PATROL DIRECTOR POINT OF CARE TE ST ORDERABLES documented in this encounter Visit Diagnoses Diagnosis Sore throat Acute pharyngitis Urinary frequency Hematuria Hematuria, unspecified documented in this encounter Care Teams Cork Insulator Helper Relationship Specialty Start Date End Date Reji Adams MD [facility] [place] [address] PCP - General General Internal Medicine 07/13/15 documented as of this encounter
--- OUTSIDE RECORDS SUMMARY | 2024-07-09 11:16 | XMS_ITS | Encounter Summary ---
Author Organization [facility] [place] [address] Care Team Providers Care Contact Lens Inspector Name Role Phone Reji Adams MD Primary Care Provider [phone] Encounter Details Date Type Department Care Team (Late st Contact Info) Description 08/09/2016 Interpretation Only Radiology [address] [place] [address] [place] [phone] Unknown None Social History Tobacco Use Types [...] EDT Office [place] [phone] Charline Ziegler MD [facility] [place] [address] documented as of this encounter Procedures Procedure Name Priority Date/Time Associated Diagnosis Comments XR KNEE AP LAT AXIAL PATELLA LEFT Routine 08/09/2016 9:05 AM EST documented in this encounter Results * XR Knee 3 Views Left (08/09/2016 9:05 AM EST) Anatomical Region Laterality Modality Knee Left Radiographic [place] ging 08/09/2016 9:05 AM EST Narrative 08/09/2016 9:05 AM EST APD Historical Result Principal Golf Caddy: ??RICK ??MADIE BILATERAL KNEES - WEIGHTBEARING VIEWS (ONE VIEW EACH): LEFT KNEE - TWO VIEWS: HISTORY: ??Left knee pain for 2 months. LEFT KNEE: There is osteoarthritis, most marked at the patellofemoral joint where there is joint space narrowing and osteophyte formation. 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 ??Rounded density over the posterior aspect of the joint could represent intraarticular body. There is a calcific density adjacent to or associated with the medial femoral condyle on the AP view, possibly representing a spur or conceivably an additional intraarticular body. ??Prominent calcification superior to the patella could represent intraarticular body. Right total knee prosthesis is noted on single view. 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 (2) Densities projecting over the knee joint and density superior to the patella, as discussed above. Rick Ramachandran MD ELIZA/jose [id number] Procedure Note Unknown - 01/25/2019 APD Historical Result Principal Golf Caddy: RICK RAMACHANDRAN BILATERAL KNEES - WEIGHTBEARING VIEWS (ONE VIEW EACH): LEFT KNEE - TWO VIEWS: HISTORY: Left knee pain for 2 months. LEFT KNEE: There is osteoarthritis, most marked at the patellofemoral joint wherethere is joint space narrowing and osteophyte formation. Osteoarthritis predominantlyinvolving the patellofemoral joint raises the possibility of calcium pyrophosphate deposition disease. Roundeddensity over the posterior aspect of the joint could represent intraarticular body. Thereis a calcific density adjacent to or associated with the medial femoral condyle on the AP view, possiblyrepresenting a spur or conceivably an additional intraarticular body. Prominent calcificationsuperior to the patella could represent intraarticular body. Right total knee prosthesis is noted on single view. IMPRESSION: (1) Osteoarthritis predominantly involving the patellofemoraljoint, as described. (2) Densities projecting over the knee joint and density superior to thepatella, as discussed above. Rick Ramachandran MD ELIZA/jose [id number] Unknown IMG DX ORDERABLES documented in this encounter Visit Diagnoses Not on filedocumented in this encounter Care Teams Contact Lens Inspector Relationship Specialty Start Date End Date Reji Adams MD [facility] GENERAL [place] [address] PCP - General General Internal Medicine 07/13/15 documented as of this encounter
--- OUTSIDE RECORDS SUMMARY | 2024-07-09 11:16 | XMS_ITS | Encounter Summary ---
Author Organization [facility] Address [facility] [place] [address] Care Team Providers Care Auto Service Dispatcher Name Role Phone Reji Adams MD Primary Care Provider [phone] Encounter Details Date Type Department Care Team (Latest Contact Info) Description 02/28/2017 11:59 AM EDT - 02/28/2017 11:59 PM EDT Hospital Encounter XRay at [address] [place] [address] Law Loja MD [facility] [address]-GENERAL [place] [address] Dyspnea, unspecified type Discharge Disposition: Home Social History Tobacco [...] 3 times daily as needed. 03/19/2018 Saw [place] 500 mg capsule Take 500 mg by [...] EDT Office [place] [address] Charline Ziegler MD [facility] [place] [address] documented as of this encounter Procedures Procedure Name Priority Date/Time Associated Diagnosis Comments XR CHEST PA AND LATERAL Routine 02/28/2017 12:17 PM EDT Dyspnea, unspecified type documented in this encounter Results * XR Chest PA [...] encounter Visit Diagnoses Diagnosis Dyspnea, unspecified type documented in this encounter Care Teams Auto Service Dispatcher Relationship Specialty Start Date End Date Reji Adams MD [facility] GENER[facility] [place] [address] PCP - General General Internal Medicine 07/13/15 documented as of this encounter
--- OUTSIDE RECORDS SUMMARY | 2024-07-09 11:16 | XMS_ITS | Encounter Summary ---
Author Organization [facility] [place] [address] Care Team Providers Care Waiter Name Role Phone Reji Adams MD Primary Care Provider [phone] Encounter Details Date Type Department Care Team (Late st Contact Info) Description 02/27/2017 [place] [phone] Liudmila Carr Social History Tobacco Use Types Packs/Day Years [...] as of this encounter Progress Notes * Liudmila Carr LNA - 02/27/2017 1:56 PM EDT Urine Culture done on 02/25/2017 is a no treat per Dr. Turpin . Letter sent out Urine Culture (Abnormal) 1,000-9,000 cfu/ml Gram Positive organisms , probable contaminant documented in this encounter Plan of Treatment Upcoming Encounters Date Type Department Care Team (Late st Contact Info) Description 12/15/2024 11:30 AM EDT Office [place] [address] [facility] [place] [address] documented as of this encounter Visit Diagnoses Not on filedocumented in this encounter Care Teams Waiter Relationship Specialty Start Date End Date Reji Adams MD [facility] [place] [address] PCP - General General Internal Medicine 07/13/15 documented as of this encounter
--- OUTSIDE RECORDS SUMMARY | 2024-07-09 11:16 | XMS_ITS | Encounter Summary ---
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 Mary Lazaro PA [address] [facility] [place] [address] [facility] [address] [place] [address] Referral ID Status Reason Start Date Expiration Date V isits Requested Visits Authorized [id number] Closed Consult, Test & Treat 10/21/2016 10/21/2017 2 2 Encounter Details Date Type Department Care Team (Late st Contact Info) Description 11/07/2016 3:00 PM EDT Office Visit [place] [address] Pat Vargas APRN [facility] [place] [address] Varicose vein of leg Social History Tobacco Use Types Packs/Day Years [...] Sign Reading Time Taken Comments Blood Pressure 122/74 11/07/2016 3:12 PM EDT Pulse 69 11/07/2016 3:12 PM EDT Temperature - - Respiratory Rate - - Oxygen Saturation - - Inhaled Oxygen Concentration - - Weight 98.4 kg (217 lb) 11/07/2016 3:12 PM EDT Height 180.3 cm (5' 11) 11/07/2016 3:12 PM EDT Body Mass Index 30.27 11/07/2016 3:12 PM EDT documented in this encounter Progress Notes * Pat Vargas Husam, FUNERAL GREETER - 11/07/2016 3:00 PM EDT This is a new patient to the practice who is being evaluated for leg fatigue and varicose vein and was referred by Reji Adams MD. 71 healthy active male s/p B LE GSV and varicose vein stripping many years ago by Dr Broussard. Henow c/o right posterior thigh discomfort with standing and B leg fatigue with walking. Denies chestpain, SOB, TIA's, DC, CVA, claudication. He has on and off worn compression PMHx: Past Medical History: Diagnosis Date ??? BPH (benign prostatic hyperplasia) ??? Neck pain 08/24/2012 ??? OA (osteoarthritis) of knee right PSxHx: Past Surgical History: Procedure Laterality Date ??? CREATED BY INTERFACE Past surg hx. Procedure Date: 09/19/2010 ??? PRO COLONOSCOPY, DIAGNOSTIC 09/07/2013 COLONOSCOPY, DIAGNOSTIC performed by Ximena Gu MD at [facility] ENDOSCOPY ??? PRO LIGATE/STRIP LONG SAPH VEIN BELW SEP-FEM JUNC 06/02/2012 LIGATION\DIV\STRIP GREATER SAPHENOUS VEIN performed by BEATRICE BROUSSARD at [facility] MAIN OR ??? PRO PHLEB VEINS - EXTREM - TO 20 06/02/2012 STAB PHLEBECTOMY KARLI VEINS, EXTREMITY 10-20 INCISIONS-SANTI performed by BEATRICE BROUSSARD at [facility] MAIN OR Family Hx: Family History Problem Relation Age of Onset ??? Cancer Mother bone ??? Diabetes Father ??? Cancer Father testicular Social Hx: Social History Substance Use Topics ??? Smoking status: Never Smoker ??? Smokeless tobacco: Current User Types: Chew Comment: 3 cans/ week. ??? Alcohol use 0.0 - 0.6 oz/week 0 - 1 Cans of beer per week Medications: Medications 11/07/16 1519 Medication Sig Taking? ibuprofen (ADVIL) 200 mg tablet Take 400 mg by mouth every 6 hours as needed. Yes ALPRAZolam (XANAX) 0.25 mg tablet Take 0.25 mg by mouth 3 times daily as needed. Yes multivitamin (THERAGRAN) tablet Take 1 tablet by mouth daily. Yes Saw [place] 500 mg capsule Take 500 mg by mouth daily. Yes Mavis Extract 500 mg Cap Take 1 capsule by mouth daily. Yes naproxen sodium (ALEVE) 220 mg tablet Take 220 mg by mouth as needed. Yes Allergies: Allergies Allergen Reactions ??? Penicillins Anaphylaxis Tongue swelling Physical Exam: Vitals: Vitals: 11/07/16 1512 BP: 122/74 Pulse: 69 General: NAD, appears well Neuro: Alert and oriented, motor sensory grossly intact Lungs: CTA Heart: RRR Abd: Soft, NT, ND, no palpable pulsatile masses Extremity - [place], warm, no ulceration, brisk capillary refill, mild bilateral Lower leg edema rightlateral small 3-4 mm varicose veins. No phlebitis. Vascular: R L Carotid 2/2 bruit (n) 2/2 bruit (n) Radial 2/2 2/2 Femoral 2/2 2/2 Popliteal 2/2 2/2 DP 2/2 2/2 PT 2/2 2/2 EMILEE's 10/10/16 Right ?Pressure (mm Hg) ?? EMILEE ??Waveform [...] to the previous exam performed on 06/10/2005. Venous duplex 11/07/16 Right ?Reflux? ?? Common Femoral Vein ??Reflux [...] (>3.8 seconds) consistent with superficial venous valvular incompetence Assessment/Plan: 71 healthy active male s/p B LE GSV and varicose vein stripping many years ago by Dr Broussard. He now c/o right posterior thigh discomfort with standing and B leg fatigue with walking. Small right lateral thigh varicose vein. Normal EMILEE's, Venous RIGHT: There is reflux in the common femoral vein (>4.0 seconds), femoral vein in the thigh (>3.6 seconds), and popliteal vein ( >3.2 seconds) consistent with deep venous valvular incompetence. No evidence of common femoral, femoral, or popliteal DVT. No identifiable change when compared to the previous exam done 12/06/2011.No surgical intervention warranted at this time. Recommend compression knee high. Walking . 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
--- OUTSIDE RECORDS SUMMARY | 2024-07-09 11:16 | XMS_ITS | Encounter Summary ---
Author Organization [facility] Address [facility] [place] [address] Care Team Providers Care Product Management Analyst Name Role Phone Reji Adams MD Primary Care Provider [phone] Encounter Details Date Type Department Care Team (Late st Contact Info) Description 01/03/2017 Abstract [facility]lin [place] Conversion Results [address] [place] [phone] Apd Conversion, Flowsheet Provider, Social History Tobacco [...] - - Weight 95 kg (209 lb 7 oz) 01/03/2017 2 :24 PM EDT Sourced from APD Conversion Height 180 cm (5' 10.87) 01/03/2017 2: 24 PM EDT Sourced from APD Conversion Body Mass Index 29.32 01/03/2017 2:24 PM EDT documented in this encounter Plan of Treatment Upcoming Encounters Date Type Department Care Team (Late st Contact Info) Description 12/15/2024 11:30 AM EDT Office [place] [address] Charline Ziegler MD [facility] [place] [address] documented as of this encounter Visit Diagnoses Not on filedocumented in this encounter Care Teams Product Management Analyst Relationship Specialty Start Date End Date Reji Adams MD [facility] [place] [address] PCP - General General Internal Medicine 07/13/15 documented as of this encounter
--- OUTSIDE RECORDS SUMMARY | 2024-07-09 11:16 | XMS_ITS | Encounter Summary ---
Author Organization [facility] [place] [address] Care Team Providers Care Belt Glass Sander Name Role Phone Reji Adams MD Primary Care Provider [phone] Reason for Referral * Surgical (Routine) - Closed Specialty Diagnoses / Procedures Referred By Contsushma t Referred To Contact Diagnoses Left knee pain, unspecified chronicity Qian Power HOST/HOSTESS HEAD [facility] [address] [place] [address] [place] [address] Referral ID Status Reason Start Date Expiration Date V isits Requested Visits Authorized [id number] Closed Consult, Test & Treat 06/26/2016 12/23/2016 1 1 Reason for Visit * Reason Comments Knee Pain Encounter Details Date Type Department Care Team (Late st Contact Info) Description 06/26/2016 1:20 PM EST Office Visit Internal Medicine at [address] [address] Qian [address] [facility] [address] [facility] [place] [id number] Left knee pain, unspecified chronicity (Primary Dx) Social History Tobacco [...] Reading Time Taken Comments Blood Pressure 108/66 06/26/2016 1:00 PM EST Pulse 78 06/26/2016 1:00 PM EST Temperature 36.8 ??C (98.2 ??F) 06/26/2016 1:00 PM ES T Respiratory Rate 14 06/26/2016 1:00 PM EST Oxygen Saturation 100% 06/26/2016 1:00 PM EST Inhaled Oxygen Concentration - - Weight 98.7 kg (217 lb 9.6 oz) 06/26/2016 1:00 P M EST Height - - Body Mass Index 31.22 05/16/2016 8:00 AM EDT documented in this encounter Progress Notes * JannetQian, HOST/HOSTESS HEAD - 06/26/2016 1:20 PM EST Images from the original note were not included. PCP: Reji Adams MD Chief Complaint Patient presents with ??? Knee Pain SUBJECTIVE: Ken Mckeon is a 70 y.o. male who presents for left knee pain. He reports that after his surgerylast week, he has had worsening left knee pain. He reports that it is worse on the medial aspect ofhis knee. He reports that it feels unstable with walking. He has been trying to walk more after hisback surgery. - He reports that it does swell at times. He reports that when he is walking, it will give sensation of giving out. - he has been icing it some. - no catching or locking sensations. - he was seen at [facility] about 9 years ago for right knee replacement. He was told that therewas deterioration of the left knee, but that it was not candidate for treatment at that time. I could not find copies of the prior xrays. He would like to see Dr. Davis at [facility] for further evaluation. Stools- he has had constipation and when he had formed stools that are small in caliber. After surgery he had a lot of stool. He took suppository, mag citrate and fleet enema. He was able to have large stool after the enema. He then had loose watery stools. He reports that the diameter as shrunk again. - he has been drinking bottle water and has not seen change. Review of Systems Gastrointestinal: Positive for constipation. Musculoskeletal: Positive for arthralgias, gait problem and joint swelling. Allergies Allergen Reactions ??? Penicillins Tongue swelling Current Outpatient Prescriptions Medication Sig Dispense Refill ??? metroNIDAZOLE (METROCREAM) 0.75 % Cream Apply topically as needed. ??? ibuprofen (ADVIL) 200 mg tablet Take 400 mg by mouth every 6 hours as needed. ??? ALPRAZolam (XANAX) 0.25 mg tablet Take 0.25 mg by mouth 3 times daily as needed. ??? multivitamin (THERAGRAN) tablet Take 1 tablet by mouth daily. ??? Saw [place] 500 mg capsule Take 500 mg by [...] R20.2 ??? Shoulder pain, bilateral M25.511, M25.512 OBJECTIVE: Vitals: 06/26/16 1300 BP: 108/66 BP Location (NBP): Left arm Patient Position: Sitting BP Cuff Sizes: Large Adult (32-43 cm) Pulse: 78 Resp: 14 Temp: 36.8 ??C (98.2 ??F) TempSrc: Oral SpO2: 100% Weight: 98.7 kg (217 lb 9.6 oz) PHYSICAL EXAM: Physical Exam Constitutional: He is oriented to person, place, and time. He appears well- developed and well-nourished. HENT: Head: Normocephalic and atraumatic. Eyes: Conjunctivae are normal. No scleral icterus. Musculoskeletal: Left knee: He exhibits decreased range of motion (flexion to about 90 degrees, full extension) and swelling (mild). Tenderness found. Medial joint line tenderness noted. No MCL and no LCL tenderness noted. Back: Neurological: He is alert and oriented to person, place, and time. Skin: Skin is warm and dry. Psychiatric: He has a normal mood and affect. His behavior is normal. Judgment and thought content normal. Vitals reviewed. ASSESSMENT & PLAN: Ken was seen today for knee pain. Diagnoses and all orders for this visit: Left knee pain, unspecified chronicity - Referral to Orthopaedics - history of arthritis in knee in past. Having worse pain and some instability - will refer to ortho for further evaluation and treatment Constipation - discussed increasing fiber in diet and taking miralax daily. documented in this encounter Plan of Treatment Upcoming Encounters Date Type Department Care Team (Late st Contact Info) Description 12/15/2024 11:30 AM EDT Office [place] [address] Charline Ziegler MD [facility] [place] [address] Scheduled Referrals Name Type Priority Associated Diagnoses Orde r Schedule Referral to Orthopaedics Outpatient Referral Routine Left knee pain, unspecified chronicity Ordered: 06/26/2016 documented as of this encounter Visit Diagnoses Diagnosis Left knee pain, unspecified chronicity- Primary documented in this encounter Care Teams Belt Glass Sander Relationship Specialty Start Date End Date Reji Adams MD [facility] [place] [address] PCP - General General Internal Medicine 07/13/15 documented as of this encounter
--- OUTSIDE RECORDS SUMMARY | 2024-07-09 11:16 | XMS_ITS | Encounter Summary ---
[place] [address] Care Team Providers Care Machine Adjuster Helper Name Role Phone Reji Adams MD Primary Care Provider [phone] Encounter Details Date Type Department Care Team (Late st Contact Info) Description 10/16/2016 Orders [place] [phone] Waldo Vaca RN Left shoulder pain, unspecified chronicity; Bilateral shoulder pain, unspecified chronicity Social History [...] as of this encounter Progress Notes * Waldo Vaca RN - 10/16/2016 1:33 PM EDT Patient's request for injection appointment of the Bilateral shoulder has been reviewed by [employer]. Is it too soon for patient to have this injection? No Date of last injection? 08/29/15 left; 11/05/16 right Is this a synvisc/orthovisc injection? no Enter [employer] Prior Auth if Synvisc or Orthovisc injection. Does this injection need to be scheduled in radiology under fluoro? yes, sent to outside facility Have orders been placed? yes Injection within 3 months prior to joint arthroplasty or arthroscopy is associated with increased rates of postoperative infection: this includes, hip, knee, and shoulder. documented in this encounter Plan of Treatment Upcoming Encounters Date Type Department Care Team (Late st Contact Info) Description 12/15/2024 11:30 AM EDT Office [place] [address] Charline Ziegler MD [facility] [place] [address] documented as of this encounter Visit Diagnoses Diagnosis Left shoulder pain, unspecified chronicity Bilateral shoulder pain, unspecified chronicity documented in this encounter Care Teams Machine Adjuster Helper Relationship Specialty Start Date End Date Reji Adams MD [facility] [place] [address] PCP - General General Internal Medicine 07/13/15 documented as of this encounter
--- OUTSIDE RECORDS SUMMARY | 2024-07-09 11:16 | XMS_ITS | Encounter Summary ---
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 No known injury. Would like to rule out a clot. 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 Height - - Body Mass Index 30.32 10/03/2016 8:00 AM EST documented in this encounter Progress Notes * Mary Lazaro PA - 10/21/2016 1:40 PM EDT PCP: Reji Adams MD Chief Complaint Patient presents with ??? Leg Pain On back of right thigh, x 1 week. No known injury. Would like to rule out a clot. SUBJECTIVE: Ken Mckeon is a 71 y.o. male who presents for evaluation of posterior right thigh pain. Denies injury or illness. PMH significant for varicose veins, varicose vein stripping, total right knee replacement in 2007. He reports that he first noticed this back in the fall and was seen by Dr Oliveros of Vascular Surgery. At that time they decided to opt for compression and conservative therapy. 1-2 weeks ago he reports that he started to experience a focal point of discomfort just above the right knee. Since that time, the area of discomfort has begun to extend up the back of his leg. Denies redness, heat, dusky skin. Was worse with sitting, but now it bothers him to stand as well. He is concerned that he may have developed a blood clot. No family or personal history of DVT/PE. Not on anticoagulation. Review of Systems Constitutional: Negative for chills, fatigue and fever. Respiratory: Negative for cough, chest tightness, shortness of breath and wheezing. Cardiovascular: Negative for chest pain, palpitations and leg swelling. Musculoskeletal: Negative for back pain. Skin: Negative for color change, rash and wound. Neurological: Negative for tremors, weakness and numbness. Allergies Allergen Reactions ??? Penicillins Anaphylaxis Tongue swelling Current Outpatient Prescriptions Medication Sig Dispense Refill ??? ibuprofen (ADVIL) 200 mg tablet Take 400 mg by mouth every 6 hours as needed. ??? ALPRAZolam (XANAX) 0.25 mg tablet Take 0.25 mg by mouth 3 times daily as needed. ??? multivitamin (THERAGRAN) tablet Take 1 tablet by mouth daily. ??? Saw [place] 500 mg capsule Take 500 mg by [...] bilateral M25.511, M25.512 ??? Panic attack F41.0 OBJECTIVE: Vitals: 10/21/16 1343 BP: 110/70 Pulse: 72 Resp: 16 Temp: 36.9 ??C (98.5 ??F) TempSrc: Oral SpO2: 99% Weight: 98.6 kg (217 lb 6.4 oz) PHYSICAL EXAM: Physical Exam Constitutional: He is oriented to person, place, and time. He appears well- developed and well-nourished. No distress. HENT: Head: Normocephalic and atraumatic. Eyes: Conjunctivae and EOM are normal. No scleral icterus. Cardiovascular: Normal rate, regular rhythm and normal heart sounds. Pulmonary/Chest: Effort normal and breath sounds normal. No respiratory distress. Musculoskeletal: Normal range of motion. ROM of knee is intact. Leg strength 5/5 with flexion and extension. There are visible varicose veins on the posterior thigh medial to where patient indicates pain. There is point tenderness along thesciatic nerve track/muscle belly of the hamstring, but no palpable cord of the thigh or calf. The skin is warm, pink and dry with no ulceration. Neurological: He is alert and oriented to person, place, and time. Skin: Skin is warm and dry. Psychiatric: His mood appears anxious. ASSESSMENT & PLAN: Ken was seen today for leg pain. 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 He has a long history of varicose veins, varicose vein stripping as well as a right total knee replacement that occurred in 2007. [address] Oliveros's note dated 05/16/2016 he recommends that Ken return for further discussion of surgical consideration. Ken reports that he is now looking to discuss this option further. Future Appointments Date Time Provider Department Center 10/24/2016 10:50 AM [facility] MR 3 MRI [facility] 10/30/2016 2:40 PM Mary Ny MD [facility] 11/21/2016 8:55 AM Roderick Perkins MD [facility] MATT Fraser documented in this encounter Plan of Treatment Upcoming Encounters Date Type Department Care Team (Late st Contact Info) Description 12/15/2024 11:30 AM EDT Office [place] [address] Charline Ziegler MD [facility] [place] [address] Scheduled Referrals Name Type Priority Associated Diagnoses Orde r Schedule Referral to Vascular Surgery Outpatient Referral Routine 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
--- OUTSIDE RECORDS SUMMARY | 2024-07-09 11:16 | XMS_ITS | Encounter Summary ---
Author Organization [facility] [place] [address] Care Team Providers Care Health It Specialist Name Role Phone Reji Adams MD Primary Care Provider [phone] Reason for Referral * Diagnostic Test (Routine) - Closed Specialty Diagnoses / Procedures Referred By Duglas arizmendi Referred To Contact Radiology Diagnoses Right arm numbness Procedures MRI Elbow wo Contrast Right Qian Power APRN [facility] [place] [address] [place] [address] Referral ID Status Reason Start Date Expiration Date V isits Requested Visits Authorized [id number] Closed Specialty Service Requested 09/19/2016 09/19/2017 1 1 Reason for Visit * Reason Comments Other wants to discuss a r eferral for MRI Fatigue no energy Other no appetite, just gregorio s not been feeling good Encounter Details Date Type Department Care Team (Late st Contact Info) Description 09/19/2016 2:40 PM EST Office Visit Internal Medicine at [address] [address] Qian Power APRN [facility] [place] [address] Right arm numbness; Fatigue, unspecified type; Urinary frequency Social History Tobacco Use Types [...] Sign Reading Time Taken Comments Blood Pressure 105/68 09/19/2016 2:24 PM EST Pulse 77 09/19/2016 2:24 PM EST Temperature 36.7 ??C (98 ??F) 09/19/2016 2:2 4 PM EST Respiratory Rate - - Oxygen Saturation 100% 09/19/2016 2:2 4 PM EST Inhaled Oxygen Concentration - - Weight 97.9 kg (215 lb 12.8 oz) 09/19/2016 2:24 PM EST with shoes on Height 177.8 cm (5' 10) 09/19/2016 2:2 4 PM EST reported Body Mass Index 30.96 09/19/2016 2:24 PM EST documented in this encounter Progress Notes * Qian Power, [employer] - 09/19/2016 2:40 PM EST PCP: Reji Adams MD Chief Complaint Patient presents with ??? Other wants to discuss a referral for MRI ??? Fatigue no energy ??? Other no appetite, just has not been feeling good SUBJECTIVE: Ken Mckeon is a 70 y.o. male who presents for discussion of MRI and for fatigue. Elbow- he has continued to have numbness in his mid upper arm down his arm to fingertips. He reports that the numbness is mostly in his first three fingers. He reports that it is going on the radial aspect of the arm. He reports that if he hits the elbow it will send shock wave of pain down his arm. He reports that the symptoms are nothing like carpal tunnel and he had surgery that did not help. He has an appointment with Dr. Perkins on October 03. He is hoping to have repeat MRI for further evaluation prior to that appointment. 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 Fatigue- has been ongoing for 2-3 days. He has decreased appetite. Symptoms are worse in the morning and get gradually better as the day goes on. He only eats because he has to eat. He does not feel like eating. Sleep - he is not sleeping as much. He has been waking at 2-3 in the morning and then falls back asleep sometimes. This has been ongoing for 3-4 days. He reports that sometimes he has to urinate. He tries to avoid drinking fluids in the evening to avoid this problem. Review of Systems Constitutional: Positive for appetite change (decreased), chills (last night in bed felt very cold)and fatigue. Negative for fever. HENT: Positive for ear pain (left ear, chronic, not new). Negative for congestion, rhinorrhea, sinus pressure and sore throat. Respiratory: Negative for cough, shortness of breath and wheezing. Cardiovascular: Positive for palpitations (chronic). Negative for chest pain. Gastrointestinal: Positive for constipation (takes benefiber, not a new problem. ) and nausea. Negative for abdominal pain, diarrhea and vomiting. Skin: Negative for rash. Neurological: Positive for weakness (generalized and in right arm that is chronic) and numbness. Negative for light-headedness and headaches. Hematological: Negative for adenopathy. Allergies Allergen Reactions ??? Penicillins Tongue swelling Current Outpatient Prescriptions Medication Sig Dispense Refill ??? ibuprofen (ADVIL) 200 mg tablet Take 400 mg by mouth every 6 hours as needed. ??? ALPRAZolam (XANAX) 0.25 mg tablet Take 0.25 mg by mouth 3 times daily as needed. ??? multivitamin (THERAGRAN) tablet Take 1 tablet by mouth daily. ??? Saw [place] 500 mg capsule Take 500 mg by [...] Shoulder pain, bilateral M25.511, M25.512 OBJECTIVE: Vitals: 09/19/16 1424 BP: 105/68 BP Location (NBP): Left arm Patient Position: Sitting BP Cuff Sizes: Large Adult (32-43 cm) Pulse: 77 Temp: 36.7 ??C (98 ??F) TempSrc: Oral SpO2: 100% Weight: 97.9 kg (215 lb 12.8 oz) Height: 177.8 cm (5' 10) - 9 lb weight loss since April PHYSICAL EXAM: Physical Exam Constitutional: He is [...] no wheezes. He has no rales. Abdominal: He exhibits no mass. There is tenderness (generalized). There is no rebound and no guarding. Musculoskeletal: Right elbow: He exhibits normal range of motion and no deformity. No tenderness found. Lymphadenopathy: He has no cervical adenopathy. Neurological: He is alert and oriented to person, place, and time. Skin: Skin is warm and dry. Psychiatric: He has a normal mood and affect. Vitals reviewed. ASSESSMENT & PLAN: Ken was seen today for other, fatigue and other. Diagnoses and all orders for this visit: Right arm numbness - MRI Elbow wo Contrast Right; Future Fatigue, unspecified type - CBC (with Diff); Future - Comprehensive metabolic panel (non-fasting); Future - TSH; Future Urinary frequency - POCT urine dipstick - urine was negative. documented in this encounter Miscellaneous Notes * Addendum Note - Suad Kirby MA - 09/19/2016 3:10 PM ESTAddended by: SUAD KIRBY on: 09/19/2016 03:10 PM Modules accepted: Orders documented in this encounter Plan of Treatment Upcoming Encounters Date Type Department Care Team (Late st Contact Info) Description 12/15/2024 11:30 AM EDT Office [place] [address] Charline Ziegler MD [facility] [place] [address] documented as of this encounter Procedures Procedure Name Priority Date/Time Associated Diagnosis Comments HEMOGRAM Routine 09/19/2016 3:50 PM EST Fatigue, unspecified type DIFFERENTIAL, AUTOMATED Routine 09/19/2016 3:50 PM EST Fatigue, unspecified type CBC (WITH DIFF) Routine 09/19/2016 3:50 PM EST Fatigue, unspecified type TSH Routine 09/19/2016 3:50 PM EST Fatigue, unspecified type COMPREHENSIVE METABOLIC PANEL Routine 09/19/2016 3:50 PM EST Fatigue, unspecified type POCT URINE DIPSTICK Routine 09/19/2016 2 :50 PM EST Urinary frequency documented in this encounter Results * MRI [...] cubitaltunnel, compatible with neuropraxia. Reji Adams MD [facility] MRI ORDERABLES * Differential, Automated (09/19/2016 3:50 PM EST) Neutrophil % 57.0 % [facility] Neutrophil Absolute 4.81 1.70 - 6.10 x10(3)/[facility] LAB[facility] Lymph % 34.4 % [facility] Lymphocytes Abs 2.9 0.9 - 3.2 x10(3)/[facility] Monocyte % 6.5 % [facility] Monocyte Abs 0.6 0.3 - 0.9 x10(3)/[facility] Eos % 1.3 % [facility] Eosinophils Abs 0.1 0.0 - 0.4 x10(3)/[facility] Basophil % 0.7 % [facility] Baso Absolute 0.1 0.0 - 0.1 x10(3)/[facility] Immature Gran % 0.10 % [facility] Comment: Immature granulocytes(IG's)percentage and absolute count will include metamyelocytes, myelocytes, and promyelocytes. Blood smears from CBCs yielding IG's will be scanned manually for concordance. If this scan disagrees with the automated IG or if promyelocytes are noted, a manual differential will be performed. Immature Gran Absolute 0.01 0.00 - 0.04 x10(3)/[facility] Blood specimen (specimen) 09/19/2016 3:50 PM EST 09/19/2016 6:24 PM EST Narrative Resulting Agency Comment Spec In Lab Reji Adams MD HEMATOLOGY ORDERABLE S [facility] [place] [address] * (ABNORMAL) Hemogram (09/19/2016 3:50 PM EST) White Blood Cell 8.4 4.0 - 9.5 x10(3)/ L [facility] Red Blood Cell 4.67 4.58 - 5.54 x10(6)/ L [facility] Hemoglobin 14.2 13.7 - 16.5 gm/dL [facility] Hematocrit 41.2 40.5 - 48.5 % [facility] Mean Cell Volume 88.2 82.9 - 93.1 fL [facility] Mean Cell Hemoglobin 30.4 27.5 - 32.1 pg [facility] Mean Cell Hemoglobin Concentration 34.5 32.0 - 35.7 gm/dL [facility] Platelet 212 145 - 357 x10(3)/mc L [facility] RDW Standard Deviation 45.0 36.0 - 45.0 [facility] RDW coefficient of variation 13.9(H) 11.4 - 13.8 % [facility] Mean Platelet Volume 10.4 7.6 - 12.9 [facility] NRBC% auto 0.0 % [facility] NRBC Absolute 0.000 0.000 - 0.000 x10(3)/mc L [facility] Blood specimen (specimen) 09/19/2016 3:50 PM EST 09/19/2016 6:24 PM EST Narrative Resulting Agency Comment Spec In Lab Reji Adams MD HEMATOLOGY ORDERABLE S Performing Organization Address City/[facility]/ZIP Co de Phone Number [facility] [place] [address] * TSH (09/19/2016 3:50 PM EST) Thyroid Stimulating Hormone 1.65 0.27 - 4.20 mcIU/mL [facility] Blood specimen (specimen) 09/19/2016 3:50 PM EST 09/19/2016 6:25 PM EST Narrative Resulting Agency Comment Spec In Lab Reji Adams MD CHEMISTRY ORDERABLES Performing Organization Address City/[facility] Co de Phone Number [facility] [place] [address] * Comprehensive metabolic panel (non-fasting) (09/19/2016 3:50 PM EST) Glucose 97 65 - 199 mg/dL [facility] Comment:Diabetes: >=200 mg/d L plus symptoms Blood Urea Nitrogen 15 10 - 20 mg/dL [facility] Creatinine 1.17 0.80 - 1.50 mg/dL [facility] Comment: Please note that the pediatric reference intervals supplied above were not validated at [facility]. Results from pediatric patients should be interpreted in conjunction to the patient's age, height and muscle mass. Sodium 141 135 - 145 mmol/L [facility] Potassium 4.4 3.5 - 5.0 mmol/L [facility] Comment: Please note: ??Patients with WBC >100,000 may have falsely elevated Potassium levels. ??For accurate Potassium quantification in these patients send serum separator tube (gold top) for subsequent determinations. ??Contact the Clinical Chemistry Laboratory if there are any questions. Chloride 103 98 - 107 mmol/L [facility] Carbon Dioxide 28 22 - 31 mmol/L [facility] Anion Gap 10 5 - 15 mmol/L [facility] Calcium 9.4 8.5 - 10.5 mg/dL [facility] Protein, Total 6.8 6.1 - 8.0 gm/dL [facility] Albumin 4.3 3.2 - 5.2 gm/dL [facility] Aspartate Aminotransferase 18 0 - 39 unit/L [facility] Alanine Aminotransferase 18 0 - 55 unit/L [facility] Alkaline Phosphatase 55 40 - 120 unit/L [facility] Bilirubin, Total 0.6 0.2 - 1.3 mg/dL [facility] Bilirubin, Direct 0.1 0.0 - 0.3 mg/dL [facility] Est Glomerular Filtration Rate >60 >=60 [facility] Comment: This estimated GFR (eGFR) [...] the following links into your internet browser. [email or web address] Blood specimen (specimen) 09/19/2016 3:50 PM EST 09/19/2016 6:25 PM EST Narrative Resulting Agency Comment Spec In Lab Reji Adams MD CHEMISTRY ORDERABLES [facility] [place] [address] * POCT urine dipstick (09/19/2016 2:50 PM EST) POC Sp [place] 1.015 1.002 - 1.030 POC pH, UA [...] Blood, UA neg Negative - Negative denise/uL Urine specimen (specimen) 09/19/2016 2:50 PM EST Reji Adams MD POINT OF CARE TEST O RDERABLES documented in this encounter Visit Diagnoses Diagnosis Right arm numbness Disturbance of skin sensation Fatigue, unspecified type Urinary frequency Right arm numbness Disturbance of skin sensation documented in this encounter Care Teams Health It Specialist Relationship Specialty Start Date End Date Reji Adams MD [facility] [place] [address] PCP - General General Internal Medicine 07/13/15 documented as of this encounter
--- OUTSIDE RECORDS SUMMARY | 2024-07-09 11:16 | XMS_ITS | Encounter Summary ---
Author Organization [facility] [place] [address] Care Team Providers Care Supervisor Cooler Service Name Role Phone Reji Adams MD Primary Care Provider Reason for Visit * Consultation (Routine) - Closed Specialty Diagnoses / Procedures Referred By Duglas arizmendi Referred To Contact Urology Diagnoses Urinary frequency Hematuria Qian Power APRN [facility] [place] [address] [facility] [place] [address] Referral ID Status Reason Start Date Expiration Date V isits Requested Visits Authorized [id number] Closed Specialty Service Requested 02/07/2017 02/07/2018 1 1 Encounter Details Date Type Department Care Team (Late st Contact Info) Description 02/25/2017 1:00 PM EDT Office [place] [address] Tobias Mcginnis MD [facility] [place] [address] Elevated PSA; Other symptoms and signs involving the genitourinary system Social History Tobacco Use Types Packs/Day Years [...] Sign Reading Time Taken Comments Blood Pressure 120/81 02/25/2017 12:53 PM EDT Pulse 82 02/25/2017 12:53 PM EDT Temperature 36.7 ??C (98.1 ??F) 02/25/2017 12:53 PM E DT Respiratory Rate - - Oxygen Saturation 97% 02/25/2017 12:53 PM EDT Inhaled Oxygen Concentration - - Weight - - Height - - Body Mass Index - - documented in this encounter Progress Notes * Tobias Mcginnis MD - 02/25/2017 1:00 PM EDT Urologic Outpatient Consult Note HPI: Ken Mckeon is a 71 y.o. year old male referred for LUTS, Fatigue, erectile dysfunction andan elevated PSA Symptoms started 3-4 weeks. The patient reports [...] not have nocturia/frequency/urgency. IPSS 19/35 - pleased He denies any new back or bone pain, no weight loss that is unexplained. His appetite is good. He has not had any recent travel outside the [place]. PSA History: 02/2017 - 4.7 Lab Results Component Value Date PSA 3.40 07/07/2015 PSA 3.40 07/07/2015 PSA 2.71 11/19/2013 PMHx: Past Medical History: Diagnosis Date ??? BPH (benign prostatic hyperplasia) ??? Neck pain 08/24/2012 ??? OA (osteoarthritis) of knee right PSHx: Past Surgical History: Procedure Laterality Date ??? CREATED BY INTERFACE Past surg hx. Procedure Date: 09/19/2010 ??? PRO COLONOSCOPY, DIAGNOSTIC 09/07/2013 COLONOSCOPY, DIAGNOSTIC performed by Ximena Gu MD at [facility] ENDOSCOPY ??? PRO LIGATE/STRIP LONG SAPH VEIN BELW SEP-FEM JUNC 06/02/2012 LIGATION\DIV\STRIP GREATER SAPHENOUS VEIN performed by BEATRICE RODRÍGUEZ at [facility] MAIN OR ??? PRO PHLEB VEINS - EXTREM - TO 20 06/02/2012 STAB PHLEBECTOMY KARLI VEINS, EXTREMITY 10-20 INCISIONS-SANTI performed by BEATRICE RODRÍGUEZ at [facility] MAIN OR SOCHx: Social History Social History ??? Marital [...] Denies PE: Gen: well appearing male, NAD HEENT: normocephalic and ataumaticNo lymphadenopathy cervically, supraclavicularly or inguinally. Lungs: Clear to ascultation bilaterally CV: Normal rate, regular rhythm, no murmurs rubs or gallops Abd: His abdomen is soft, NT, ND with no palpable massesno CVAT. no hernias noted Rectal: prostate moderate, no nodules Skin: warm and dry, no lesions Musculoskeletal: symmetric without gait abnormalities Neurologic: no obvious abnormalities PVR (Bladder Scan): 100cc (approx 40 min after last void) Urinalysis: Negative Imaging:NA NCI prostate cancer risk calculator: 8 % risk of high grade prostate cancer 20 % risk of low grade prostate cancer 72 % chance of having a negative prostate biopsy Impression: #1 Elevated PSA with normal FREDI #2 Irritative lower urinary tract symptoms Plan/Recommendations: # recheck PSA # Lifestyle modifications for voiding complaints (decrease volume, avoid bladder irritants, timed voiding etc all reviewed with the patient and educational materials given) I discussed the significance of an elevated PSA and his FREDI findings with the pt, specifically the implications in predicting the presence of prostate cancer. We discussed his NCI prostate cancer risks per above. I discussed that the AUA recommends repeating which we will plan to do. If persistently elevated we will review the indications for biopsy. He plans to have PSA rechecked in 2 weeks whenhis significant other is here for surgery. I will call with results. We discussed in detail that his urinary symptoms are c/w bladder overactivity. I reviewed that the recommendation for the initial management of patients with clinical OAB and predominately irritativevoiding symptoms, is lifestyle modifications. I supplied the patient with educational material regarding timed voiding, bladder irritants and dietary modifications. He will address this and we will reassess at follow-up. I will call when PSA results are in and will schedule follow-up accordingly at that time. documented in this encounter Plan of Treatment Upcoming Encounters Date Type Department Care Team (Late st Contact Info) Description 12/15/2024 11:30 AM EDT Office Visit [place] [address] Chraline Ziegler MD [facility] [place] [address] documented as of this encounter Procedures Procedure Name Priority Date/Time Associated Diagnosis Comments URINE CULTURE Routine 02/25/2017 2:46 PM EDT Other symptoms and signs involving the genitourinary system documented in this encounter Results * (ABNORMAL) PSA (03/13/2017 10:59 AM EDT) Prostate Specific Antigen (Ultrasensitiv e) 6.19(H) 0.00 - 4.00 ng/mL [facility] Blood specimen (specimen) 03/13/2017 10:59 AM EDT 03/13/2017 11:04 AM EDT Narrative Resulting Agency Comment Spec In Lab Tobias Mcginnis MD CHEMISTRY ORDERABL ES Performing Organization Address [facility] Co de Phone Number [facility] [place] [address] * (ABNORMAL) Urine culture Clean Catch Urine (02/25/2017 2:46 PM EDT) Urine Culture 1,000-9,000 cfu/ml Gram Positive organisms , probable contaminant(A ) [facility] Urine specimen obtained by clean catch procedure (specimen) 02/25/2017 2:46 PM EDT 02/25/2017 4:43 PM EDT Narrative Resulting Agency Comment Spec In Lab Tobias Mcginnis MD MICROBIOLOGY - GEN ERAL ORDERABLES Performing Organization Address [facility]/ZIP Co de Phone Number [facility] [place] [address] documented in this encounter Visit Diagnoses Diagnosis Elevated PSA Elevated prostate specific antigen (PSA) Other symptoms and signs involving the genitourinary system documented in this encounter Care Teams Supervisor Cooler Service Relationship Specialty Start Date End Date Reji Adams MD [facility] [place] [address] PCP - General General Internal Medicine 07/13/15 documented as of this encounter
--- OUTSIDE RECORDS SUMMARY | 2024-07-09 11:16 | XMS_ITS | Encounter Summary ---
[place] [address] Care Team Providers Care Oral And Maxillofacial Surgeon Name Role Phone Reji Adams MD Primary Care Provider [phone] Reason for Visit * Reason Onset Date Comments Other 10/30/2016 Encounter Details Date Type Department Care Team (Late st Contact Info) Description 10/30/2016 Telephone [place] [phone] Meena Berman RN Other Social History Tobacco Use Types [...] encounter Miscellaneous Notes * Telephone Encounter - Meena Berman RN - 10/30/2016 4:46 PM EDT I received a call from the radiology department at [facility] ( /Fax: ). Theywere looking for signed standing orders for the bilateral shoulder injections for this patient for tomorrow from MATT Thompson. I spoke with Abbie regarding this request. She reordered the injections with specific instructions for the medication and dosing amounts. I successfully sent the new orders to [facility] Radiology Dept. documented in this encounter Plan of Treatment Upcoming Encounters Date Type Department Care Team (Late st Contact Info) Description 12/15/2024 11:30 AM EDT Office [place] [address] Charline Ziegler MD [facility] [place] [address] documented as of this encounter Visit Diagnoses Not on filedocumented in this encounter Care Teams Oral And Maxillofacial Surgeon Relationship Specialty Start Date End Date Reji Adams MD [facility] [place] [address] PCP - General General Internal Medicine 07/13/15 documented as of this encounter
--- OUTSIDE RECORDS SUMMARY | 2024-07-09 11:16 | XMS_ITS | Encounter Summary ---
Author Organization [facility] [place] [address] Care Team Providers Care Shape Carver Name Role Phone Reji Adams MD Primary Care Provider [phone] Reason for Referral * Diagnostic Test (Routine) - Closed Specialty Diagnoses / Procedures Referred By Contac t Referred To Contact Radiology Diagnoses Osteoarthritis of cervical spine, unspecified spinal osteoarthritis complication status Hand pain, right Right arm pain S/P cervical spinal fusion Procedures MRI Cervical Spine wwo Contrast MRI Cervical Spine wo Contrast (Generic) MRI Cervical Spine wwo Contrast Bright Casanova MD [address] [place] [address] [place] [address] Referral ID Status Reason Start Date Expiration Date V isits Requested Visits Authorized Closed Specialty Service Requested 11/14/2016 11/14/2017 1 1 Reason for Visit * Diagnostic Test (Routine) - Closed Specialty Diagnoses / Procedures Referred By Contac t Referred To Contact Radiology Diagnoses Osteoarthritis of cervical spine, unspecified spinal osteoarthritis complication status Hand pain, right Right arm pain S/P cervical spinal fusion Procedures MRI Cervical Spine wwo Contrast MRI Cervical Spine wo Contrast (Generic) MRI Cervical Spine wwo Contrast Bright Casanova MD [address] [place] [address] [place] [address] Referral ID Status Reason Start Date Expiration Date V isits Requested Visits Authorized Closed Specialty Service Requested 11/14/2016 11/14/2017 1 1 Encounter Details Date Type Department Care Team (Latest Contact Info) Description 11/15/2016 3:23 PM EDT - 11/15/2016 11:59 PM EDT Hospital [place] [address] Bright Casanova MD Osteoarthritis of cervical spine, unspecified spinal osteoarthritis complication status; Hand pain, right; Right arm pain; S/P cervical spinal fusion Discharge Disposition: Home Social History Tobacco Use [...] 3 times daily as needed. 03/19/2018 Saw Ovid 500 mg capsule Take 500 mg by [...] 11:30 AM EDT Office [place] [phone] Charline Ziegler MD [facility] [address] documented as of this encounter Procedures Procedure Name Priority Date/Time Associated Diagnosis Comments MRI CERVICAL SPINE WITH/WO CONTRAST Routine 11/15/2016 4:59 PM EDT Osteoarthritis of cervical spine, unspecified spinal osteoarthritis complication status Hand pain, right Right arm pain S/P cervical spinal fusion documented in this encounter Results * MRI Cervical Spine wwo Contrast (11/15/2016 4:59 PM EDT) Anatomical Region Laterality Modality C-spine Magnetic Resonan ce Impressions 11/16/2016 6:15 PM EDT Cervical spondylosis with facet hypertrophic changes resulting in multilevel neural foraminal stenosis as detailed above. On the right, the findings are most advanced at C6-7 where the foramen is narrowed by prominent uncovertebral osteophytes. Narrative 11/16/2016 6:15 PM EDT EXAMINATION: MRI CERVICAL SPINE WWO CONTRAST CLINICAL HISTORY: right arm/hand pain, possible radiculopathy, known cervical spondylosis, prior cervical surgery TECHNIQUE: MRI of the cervical spine was performed before and after the intravenous administration of 10 mL Gadavist COMPARISON: CT cervical myelogram 11/29/2015, MR cervical spine 07/13/2015 FINDINGS: Similar alignment of the cervical spine with changes related to C3 through C5 ACDF and focal kyphosis at C6-7 where central/left paracentral disc bulge indents the ventral thecal sac and flattens the ventral cord. The prevertebral soft tissues are normal in thickness. Unchanged focal signal alteration within the right lateral cord at the C4 level and dorsal cord at the C5-4-5 level. No abnormal cord enhancement. Findings at individual levels: C2-3: No canal or neural foraminal narrowing. C3-4: Right worse than left facet arthropathy and tiny uncovertebral osteophytes contribute to moderate right neural foraminal narrowing. Focal moderate narrowing of the lateral left neural foramen as well. Mild canal narrowing. C4-5: Hypertrophic facet changes with fused facet joints. Mild to moderate right and mild left neural foraminal narrowing. Mild canal narrowing. C5-6: Minimal annular disc bulge and left worse than right facet hypertrophic changes contribute to mild canal narrowing. Focal moderate to severe left and mild to moderate right neural foraminal narrowing. C6-7: Mild annular disc bulge and large and moderate sized left uncovertebral osteophytes are present. There is moderate to severe right and mild left neural foraminal narrowing. No significant canal narrowing. C7-T1: Annular disc bulge eccentric to the left with left paracentral and foraminal disc protrusion. Indentation of the ventral thecal sac and flattening of the ventral cord without causing significant canal narrowing. Facet arthropathy and marginal endplate osteophytes contribute to moderate to severe focal left neural foraminal narrowing. There is only mild right neural foraminal narrowing. Procedure Note Niki Holly MD - 11/16/2016 EXAMINATION: MRI CERVICAL SPINE WWO CONTRAST CLINICAL HISTORY: right arm/hand pain, possible radiculopathy, knowncervical spondylosis, prior cervical surgery TECHNIQUE: MRI of the cervical spine was performed before and after the intravenous administration of 10 mL Gadavist COMPARISON: CT cervical myelogram 11/29/2015, MR cervical spine 07/13/2015 FINDINGS: Similar alignment of the cervical spine with changes related to C3 throughC5 ACDF and focal kyphosis at C6-7 where central/left paracentral discbulge indents the ventral thecal sac and flattens the ventral cord. Theprevertebral soft tissues are normal in thickness. Unchanged focal signal alterationwithin the right lateral cord at the C4 level and dorsal cord at the C5-4-5level. No abnormal cord enhancement. Findings at individual levels: C2-3: No canal or neural foraminal narrowing. C3-4: Right worse than left facet arthropathy and tiny uncovertebralosteophytes contribute to moderate right neural foraminal narrowing. Focal moderate narrowing of the lateral left neural foramen as well. Mild canalnarrowing. C4-5: Hypertrophic facet changes with fused facet joints. Mild to moderateright and mild left neural foraminal narrowing. Mild canal narrowing. C5-6: Minimal annular disc bulge and left worse than right facethypertrophic changes contribute to mild canal narrowing. Focal moderate to severe leftand mild to moderate right neural foraminal narrowing. C6-7: Mild annular disc bulge and large and moderate sized leftuncovertebral osteophytes are present. There is moderate to severe right and mild leftneural foraminal narrowing. No significant canal narrowing. C7-T1: Annular disc bulge eccentric to the left with left paracentraland foraminal disc protrusion. Indentation of the ventral thecal sac andflattening of the ventral cord without causing significant canal narrowing. Facet arthropathy and marginal endplate osteophytes contribute to moderate tosevere focal left neural foraminal narrowing. There is only mild right neuralforaminal narrowing. IMPRESSION Cervical spondylosis with facet hypertrophic changes resulting inmultilevel neural foraminal stenosis as detailed above. On the right, the findingsare most advanced at C6-7 where the foramen is narrowed by prominentuncovertebral osteophytes. Bright Casanova MD IMG MRI ORDERABLES documented in this encounter Visit Diagnoses Diagnosis Osteoarthritis of cervical spine, unspecified spinal osteoarthritis complication status Hand pain, right Pain in limb Right arm pain Pain in limb S/P cervical spinal fusion Arthrodesis status documented in this encounter Administered Medications Inactive Administered Medications - up to 3 most recent administrations Medication Order MAR Action Action Date Dose Rate Site gadobutrol (GADAVIST) 1 mMol/mL injection 10 mL 10 mL, Intravenous, ONCE PRN, 1 dose, Starting on Fri11/15/16 at 1608, Until Fri11/15/16 at 1642, Per Protocol, Routine Given 11/15/2016 4:42 PM EDT 10 mLs documented in this encounter Care Teams Shape Carver Relationship Specialty Start Date End Date Reji Adams MD [facility] [place] [address] PCP - General General Internal Medicine 07/13/15 documented as of this encounter
--- OUTSIDE RECORDS SUMMARY | 2024-07-09 11:16 | XMS_ITS | Encounter Summary ---
Author Organization [facility] [place] [address] Care Team Providers Care Internet Media Planner Name Role Phone Reji Adams MD Primary Care Provider [phone] Reason for Visit * Reason Comments Nausea no vomiting, thirsty , sweats, dry month, no apeptite, Dizziness Encounter Details Date Type Department Care Team (Late st Contact Info) Description 05/29/2016 3:20 PM EDT Office Visit Internal Medicine at [address] [address] Qian Power, [facility] [place] [address] Upper abdominal pain Social History Tobacco Use Types [...] Reading Time Taken Comments Blood Pressure 119/76 05/29/2016 3:13 PM EDT Pulse 85 05/29/2016 3:13 PM EDT Temperature - - Respiratory Rate - - Oxygen Saturation 100% 05/29/2016 3:0 9 PM EDT Inhaled Oxygen Concentration - - Weight 99.8 kg (220 lb) 05/29/2016 3:13 PM EDT with hiking boots on Height - - Body Mass Index 31.57 05/16/2016 8:00 AM EDT documented in this encounter Patient Instructions * Patient Instructions* Qian Power APRN - 05/29/2016 3:20 PM EDT Diet- try to keep bland diet for the next few days. You may even want to start with clear liquids like water, gatorade (if not eating), popsicles, jello. - then start toast, applesauce, bananas, boiled rice or boiled chicken. - start taking prilosec daily. - f/u on Friday if not feeling better, sooner if you are feeling worse. documented in this encounter Progress Notes * Qian Power APRN - 05/29/2016 3:20 PM EDT PCP: Reji Adams MD Chief Complaint Patient presents with ??? Nausea no vomiting, thirsty, sweats, dry month, no apeptite, ??? Dizziness SUBJECTIVE: Ken Mckeon is a 70 y.o. male who presents for abdominal pressure that started 2-3 days ago. It has gotten progressively worse. He has had some dizziness as well. He reports that last night he woke and was very hot and felt dry mouth. Symptoms are worse after eating. He states that he will get a pressure and burning in his stomach. He has no appetite and is not hungry. He has had some constipation in the last couple of days. - he has tried to have some fluids today. - he had bowel movement 2-3 days ago. It was soft and formed. He reports that it was thing pencil shaped. Maybe the size of a magic marker. No vomiting. No blood in the stool. It is not dark and tarry at all. He felt like he was going to have a panic attack on the way to the clinic. Review of Systems Constitutional: Positive for fever (felt hot). Negative for chills and fatigue. HENT: Positive for ear pain (ear pressure, worse on left then right) and rhinorrhea (nasal drip).Negative for congestion, sinus pressure and sore throat. Respiratory: Negative for cough, shortness of breath and wheezing. Cardiovascular: Positive for palpitations (with panic attack) and leg swelling (ongoing, does not think thelma tit is new). Negative for chest pain. Gastrointestinal: Negative for abdominal pain, diarrhea and vomiting. Genitourinary: Positive for frequency. Negative for dysuria, flank pain and hematuria. Skin: Negative for rash. Neurological: Positive for dizziness and light-headedness. Negative for headaches. Hematological: Negative for adenopathy. Allergies Allergen [...] 1 tablet by mouth daily. ??? Saw [place] 500 mg capsule Take 500 mg by mouth daily. ??? Mavis Extract 500 mg Cap Take 1 capsule by mouth daily. ??? naproxen sodium (ALEVE) 220 mg tablet Take 220 mg by mouth as needed. ??? simvastatin (ZOCOR) 20 mg Tablet Take 1 tablet by mouth nightly. (Patient not taking: Reported on 05/01/2016) 90 tablet 3 No current facility-administered medications for this [...] Shoulder pain, bilateral M25.511, M25.512 OBJECTIVE: Vitals: 05/29/16 1509 05/29/16 1511 05/29/16 1513 BP: 121/72 129/68 119/76 Patient Position: Lying Sitting Standing Pulse: 71 75 85 SpO2: 100% Weight: 99.8 kg (220 lb) PHYSICAL EXAM: Physical Exam Constitutional: He is [...] Bowel sounds are normal. He exhibits no mass. There is tenderness (epigastric). There is no rebound and no guarding. Lymphadenopathy: He has no cervical adenopathy. Neurological: He is alert and oriented to person, place, and time. Skin: Skin is warm and dry. Psychiatric: His mood appears anxious. Vitals reviewed. ASSESSMENT & PLAN: Ken was seen today for nausea and dizziness. Diagnoses and all orders for this visit: Upper abdominal pain - epigastric pain, likely viral illness as only going on for couple of days. - POCT urine dipstick; Future - Comprehensive metabolic panel (non-fasting); Future - Lipase; Future - Comprehensive metabolic panel (non-fasting) - Lipase - POCT urine dipstick - omeprazole (PRILOSEC) 20 mg Capsule, Delayed Release(E.C.); Take 1 capsule by mouth daily. Patient Instructions Diet- try to keep bland diet for the next few days. You may even want to start with clear liquids like water, gatorade (if not eating), popsicles, jello. - then start toast, applesauce, bananas, boiled rice or boiled chicken. - start taking prilosec daily. - f/u on Friday if not feeling better, sooner if you are feeling worse. documented in this encounter Plan of Treatment Upcoming Encounters Date Type Department Care Team (Late st Contact Info) Description 12/15/2024 11:30 AM EDT Office [place] [phone] Charline Ziegler MD [facility] [place] [address] documented as of this encounter Procedures Procedure Name Priority Date/Time Associated Diagnosis Comments LIPASE Routine 05/29/2016 4:03 PM EDT Upper abdominal pain COMPREHENSIVE METABOLIC PANEL Routine 05/29/2016 4:03 PM EDT Upper abdominal pain POCT URINE DIPSTICK Routine 05/29/2016 3 :10 AM EDT Upper abdominal pain documented in this encounter Results * Lipase (05/29/2016 4:03 PM EDT) Lipase 34 0 - 60 unit/L [facility] Blood specimen (specimen) 05/29/2016 4:03 PM EDT 05/29/2016 6:54 PM EDT Narrative Resulting Agency Comment Spec In Lab Reji Adams MD CHEMISTRY ORDERABLES [facility] [place] [address] * Comprehensive metabolic panel (non-fasting) (05/29/2016 4:03 PM EDT) Glucose 97 65 - 199 mg/dL [facility] Comment:Diabetes: >=200 mg/d L plus symptoms Blood Urea Nitrogen 17 10 - 20 mg/dL [facility] Creatinine 0.97 0.80 - 1.50 mg/dL [facility] Comment: Please note that the pediatric reference intervals supplied above were not validated at [facility]. Results from pediatric patients should be interpreted in conjunction to the patient's age, height and muscle mass. Sodium 141 135 - 145 mmol/L [facility] Potassium 4.1 3.5 - 5.0 mmol/L [facility] Comment: Please note: ??Patients with WBC >100,000 may have falsely elevated Potassium levels. ??For accurate Potassium quantification in these patients send serum separator tube (gold top) for subsequent determinations. ??Contact the Clinical Chemistry Laboratory if there are any questions. Chloride 102 98 - 107 mmol/L [facility] Carbon Dioxide 27 22 - 31 mmol/L [facility] Anion Gap 12 5 - 15 mmol/L [facility] Calcium 9.2 8.5 - 10.5 mg/dL [facility] Protein, Total 6.6 6.1 - 8.0 gm/dL [facility] Albumin 4.5 3.2 - 5.2 gm/dL [facility] Aspartate Aminotransferase 18 0 - 39 unit/L [facility] Alanine Aminotransferase 11 0 - 55 unit/L [facility] Alkaline Phosphatase 49 40 - 120 unit/L [facility] Bilirubin, Total 0.7 0.2 - 1.3 mg/dL [facility] Bilirubin, Direct 0.2 0.0 - 0.3 mg/dL [facility] Est Glomerular Filtration Rate >60 >=60 [facility] Comment: This estimated GFR (eGFR) [...] the following links into your internet browser. [email or web address] Blood specimen (specimen) 05/29/2016 4:03 PM EDT 05/29/2016 6:54 PM EDT Narrative Resulting Agency Comment Spec In Lab Reji Adams MD CHEMISTRY ORDERABLES [facility] [place] [address] * (ABNORMAL) POCT urine dipstick (05/29/2016 3:10 AM EDT) POC Sp [place] 1.010 1.002 - 1.030 POC pH, UA [...] Blood, UA neg Negative - Negative denise/uL 05/29/2016 3:10 AM EDT Reji Adams MD POINT OF CARE TEST O RDERABLES documented in this encounter Visit Diagnoses Diagnosis Upper abdominal pain Abdominal pain, other specified site documented in this encounter Care Teams Internet Media Planner Relationship Specialty Start Date End Date Reji Adams MD [facility] DR GENERAL [place] [address] PCP - General General Internal Medicine 07/13/15 documented as of this encounter
--- OUTSIDE RECORDS SUMMARY | 2024-07-09 11:16 | XMS_ITS | Encounter Summary ---
Author Organization [facility] Address [facility] [place] [address] Care Team Providers Care Semi Automatic Sewing Machine Operator Name Role Phone Reji Adams MD Primary Care Provider [phone] Reason for Visit * Reason Comments Varicose Veins Encounter Details Date Type Department Care Team (Late st Contact Info) Description 05/16/2016 8:00 AM EDT Office [place] [address] Tomas Oliveros MD [facility] [place] [address] Varicose veins of leg with pain, right Social History Tobacco Use Types Packs/Day [...] Reading Time Taken Comments Blood Pressure 117/67 05/16/2016 8:00 AM EDT Pulse 66 05/16/2016 8:00 AM EDT Temperature - - Respiratory Rate - - Oxygen Saturation - - Inhaled Oxygen Concentration - - Weight 99.8 kg (220 lb) 05/16/2016 8:00 AM EDT Height 177.8 cm (5' 10) 05/16/2016 8:00 AM EDT Body Mass Index 31.57 05/16/2016 8:00 AM EDT documented in this encounter Patient Instructions * Patient Instructions* Tomas Oliveros MD - 05/16/2016 8:00 AM EDT Your recurrent varicose veins remain mild. Wear compression stockings. No restrictions. Followup asneeded. documented in this encounter Progress Notes * Tomas Oliveros MD - 05/16/2016 8:00 AM EDT OUTPATIENT VASCULAR SURGERY CONSULTATION Reason for Visit: Recurrent Right Thigh Varicose Veins History of Present Illness: 70 yo male seen in consultation for his recurrent right thigh varicose veins. He underwent a remote bilateral vein stripping and subsequent stab phlebectomy in 2011 by . He now reports some recurrent aching in the posterior right thigh. He denies any history of phlebitis or DVT. Atherosclerotic Risk Factors: (n) DM (n) HTN (y) Hyperlipidemia (y) Tobacco - Chews Other Past Medical History/Risk Factors: (n) Previous [place] (n) Angina (n) CHF (n) Arrythmia (n) COPD (y) Bilateral Vein Stripping - Remote (y) Bilateral Stab Phlebectomy - 2011 Dr. Broussard (y) C-Spine Decompression Review of Systems: Constitutional (weight change, fever) - Denies Neuro (dizziness, seizures, numbness, tingling) - Denies Eyes (vision) - Denies Ears, nose, throat (hearing) - Denies Cardiovascular (CP) - Denies Respiratory (SOB) - Denies GI (abd pain, nausea, emesis, blood in stool) - Denies (hematuria, dysuria, frequency) - Denies Muscoloskeletal (extremity pain, weakness) - Denies Skin (ulcers, rashes) - Denies Functional Status/Social Hx: Lives at Home, Drives Car and Does His Own Shopping, Active Tobacco Use, Occasional EtOH Family Hx: Negative for Thrombosis, Bleeding Disorders or aneursyms Physical Exam: Vitals: 05/16/16 0800 BP: 117/67 Pulse: 66 General - NAD, appears stated age Neuro - Alert and Oriented, Motor Sensory grossly intact Skin - No prominent markings or lesions Ear, Nose, Throat - No masses, No lesions Cardiac - RRR, no murmurs Lungs - CTA bilaterally Abd - Soft, NT, ND, No palpable pulsatile masses Extremities - Warm, pink, Mild edema, brisk capillary refill, mild recurrent posterior thigh varicose veins, no ulcerations Vascular Exam: R L Carotid 2/2 bruit (-) 2/2 bruit (-) Radial 2/2 2/2 Femoral 2/2 2/2 Popliteal 2/2 2/2 DP 2/2 2/2 PT 2/2 2/2 Labs: None Studies: None Assessment and Plan: Mild recurrent right thigh varicose veins. I have advised compression and the patient would like to currently avoid further surgery if possible. I told him to contact our office should his symptoms or varicose veins progress. documented in this encounter Plan of Treatment Upcoming Encounters Date Type Department Care Team (Late st Contact Info) Description 12/15/2024 11:30 AM EDT Office [place] [address] Charline Ziegler MD [facility] [place] [address] documented as of this encounter Visit Diagnoses Diagnosis Varicose veins of leg with pain, right documented in this encounter Care Teams Semi Automatic Sewing Machine Operator Relationship Specialty Start Date End Date Reji Adams MD [facility] GENERAL [place] [address] PCP - General General Internal Medicine 07/13/15 documented as of this encounter
--- OUTSIDE RECORDS SUMMARY | 2024-07-09 11:16 | XMS_ITS | Encounter Summary ---
Author Organization [facility] [place] [address] Care Team Providers Care Hotel Controller Name Role Phone Reji Adams MD Primary Care Provider [phone] Encounter Details Date Type Department Care Team (Late st Contact Info) Description 10/24/2016 Orders [place] [phone] Kristen Weber, RN Varicose vein of leg Social History Tobacco [...] 11:30 AM EDT [place] [phone] Charline Ziegler MD [facility] [place] [address] documented as of this encounter Results * LE Unilateral Valvular Incomp Study (11/07/2016 2:05 PM EDT) VB Text Report Department: Vascular Surgery Lab Patient: [id number] (KEN COLE) CPT: 02189 ICD10: I87.2;I83.811;I83 .90 Referring Physician: SUKUMAR WINSLOW [...] Report [facility] 11/07/2016 2:05 PM EDT Sukumar iWnslow MD VASCULAR ORDERABLES [facility] documented in this encounter Visit Diagnoses Diagnosis Varicose vein of leg Asymptomatic varicose veins documented in this encounter Care Teams Hotel Controller Relationship Specialty Start Date End Date Reji Adams MD [facility] [place] [address] PCP - General General Internal Medicine 07/13/15 documented as of this encounter
--- OUTSIDE RECORDS SUMMARY | 2024-07-09 11:17 | XMS_ITS | Encounter Summary ---
Author Organization [facility] Address [facility] [place] [address] Care Team Providers Care Workforce Advisor Name Role Phone Reji Newberry MD Primary Care Provider [phone] Reason for Visit * Reason Comments Referral * Consultation (Routine) - Closed Specialty Diagnoses / Procedures Referred By Duglas arizmendi Referred To Contact Rheumatology Diagnoses Osteoarthritis, unspecified osteoarthritis type, unspecified site Reji Newberry MD [facility] GENERAL [place] [address] [facility] Rheumatology [address] [place] [id number] Referral ID Status Reason Start Date Expiration Date V isits Requested Visits Authorized [id number] Closed Specialty Service Requested 09/28/2015 09/27/2016 1 1 Encounter Details Date Type Department Care Team (Late st Contact Info) Description 10/19/2015 4:00 PM EDT Office [place] [address] Reji Newberry MD [facility] GENERAL [place] [address] Tyrees Waller MD [facility] [place] [address] Osteoarthritis of multiple joints, unspecified osteoarthritis type; Calcific tendinitis of left shoulder Social History Tobacco Use Types Packs/Day Years [...] Sign Reading Time Taken Comments Blood Pressure 123/82 10/19/2015 3:44 PM EDT Pulse 77 10/19/2015 3:44 PM EDT Temperature 36.3 ??C (97.3 ??F) 10/19/2015 3:44 PM ED T Respiratory Rate - - Oxygen Saturation 99% 10/19/2015 3:44 PM EDT Inhaled Oxygen Concentration - - Weight 98.9 kg (218 lb) 10/19/2015 3:44 PM EDT Height 180.3 cm (5' 11) 10/19/2015 3:44 PM EDT Body Mass Index 30.4 10/19/2015 3:44 PM EDT documented in this encounter Progress Notes * Tyrese Waller MD - 10/19/2015 3:56 PM EDT RHEUMATOLOGY STAFF OFFICE NOTE Patient Name: Ken Mckeon Date of encounter: 10/19/2015 Mr. Mckeon is a 70 y.o. male whom I am seeing at the request of REJI NEWBERRY MD for evaluation ofosteoarthritis. Ken reports that he thinks this is a last ditch effort by seeing me. About three years ago he started getting a lot of neck pain and stiffness. He was told by the cleaning specialist that this couldbe a very complicated surgery. He waited and found that he got worse with his legs turning into rubber. He ended up having anterior decompression of the cervical spine about one year ago. He continued to have numbness of the right arm. There was a concern that he had carpal tunnel, so had this released, but it didn't do anything. There is pain in the elbow and numbness from the mid biceps down to the hand. He has a tremendous amount of pain in both shoulders. One was in the left shoulder subacromially about on month ago and really didn't seem to help much. In general he feels better sitting. He is trying to walk everyday, but the legs get very heavy when he does a mile walk. He takes OTC tylenol, advil, naproxen. He finds that this helps, but it does not get all the pain away. He does find that the NSAIDs cause ringing in his ears. He has been starting glucosamine lately, though not sure that it helped when he took it years ago. ROS positive for Raynauds and not sleeping very well. There is some fatigue and a sensation of weakness. He has some prostate troubles. The rest of the ROS was reviewed and is found to be negative. [facility] Patient Active Problem List Diagnosis Code ??? [...] Back pain M54.9 ??? Ileitis K52.9 ??? Cervical stenosis of spinal canal M48.02 ??? Peripheral neuropathy G62.9 ??? Prostate troubles ??? Right arm numbness R20.2 - Tonsillectomy - carpal tunnel release Right 2014; Right 1975; Left 1976 - Lumbar fusion 1976 - Raynaud's syndrome since the HOME MEDICATIONS: Current Outpatient Prescriptions Medication Sig Dispense Refill ??? UNABLE TO FIND Takes hydralauronic acid ??? BORON ORAL Take by mouth. ??? dmbahrhg-ddm-beejamcdg-vit D3 750 mg-125 mg -600 mg Tablet Take by mouth. ??? metroNIDAZOLE (METROCREAM) 0.75 % Cream Apply topically 2 times daily. ??? ibuprofen (ADVIL) 200 mg tablet Take 400 mg by mouth every 6 hours as needed. ??? ALPRAZolam (XANAX) 0.25 mg tablet Take 0.25 mg by mouth 3 times daily as needed. ??? multivitamin (THERAGRAN) tablet Take 1 tablet by mouth daily. ??? Saw [place] 500 mg capsule Take 500 mg by mouth daily. ??? Mavis Extract 500 mg Cap Take 1 capsule by mouth daily. ??? naproxen sodium (ALEVE) 220 mg tablet Take 220 mg by mouth as needed. No current facility-administered medications for this visit. ALLERGIES/ADVERSE REACTIONS Allergies Allergen Reactions ??? Penicillins Tongue swelling FAMILY HISTORY: Mother had bone cancer, and also had osteoporosis with severe kyphosis. SOCIAL HISTORY: , lives in [place], [place] with a significant other. There is no tobacco use, and he has about one beer a week. PHYSICAL EXAM BP 123/82 mmHg Pulse 77 Temp(Src) 36.3 ??C (97.3 ??F) (Oral) Ht 180.3 cm (5' 11) Wt 98.884kg (218 lb) BMI 30.42 kg/m2 SpO2 99% Gen: Alert, NAD, oriented, conversant HEENT: Anicteric, no scleral injection, OP clear, MMM Neck: supple, no LAD, no thyromegaly Ext: No LE edema, nodules or cyanosis Joint exam: Shoulders: Impaired abduction bilaterally, but with negative Clark or Neer impingement signs. There is no AC and little subacromial tenderness on either side. Internal and external rotation is full. There are some positions that cause increased pain, primarily with abduction. Elbows: The right elbow has mild medial epicondyle tenderness, no swelling. Wrists: No swelling, no tenderness, full flexion and extension Hands: There are OA changes of the fingers with pain at the left third PIP, no swelling. Hips: There is no trochanteric tenderness. Knees: No effusions, there is mild tenderness of the left knee with crepitance present, full ROM Ankles: No swelling or tenderness, no Achilles pain. Feet: No MTP swelling or tenderness. Skin: No rashes or erythema LABORATORY DATA I have reviewed labs, including a normal SPEP IMAGING There is extensive imaging. I have personally reviewed the left shoulder and hand x-rays and the right elbow MRI. Also have reviewed the spine on the CT abd/pelvis. The elbow MRI and the CT spine show extensive degenerative changes. The left shoulder also has an area of calcific tendinitis. ASSESSMENT AND PLAN Mr. Mckeon is a 70 year old with extensive OA. I have reassured him that he does not have rheumatoid arthritis, nor does he have another inflammatory syndrome. We discussed medication options, including continuing the tylenol, other NSAID options, etc. We have opted to try a low dose meloxicam 7.5mg to take daily as needed. I have emphasized that he does not have to take this daily, as he is not interested in taking any more medication than he needs. If he finds it partially helpful then he could try an increased dose. Another option would be colchicine. 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 In addition, there has been one or two studies showing a modest benefit for OA with colchicine. He is not interested in trying now, but could be tried in the future (0.6mg once or twice daily). I have also recommended that he think seriously about doing some form of flexibility exercise such as delvis chi or yoga. He tells me that he had already considered this, and was planning to take up taichi. I have not made a follow up, but would be happy to see him again if he requested. documented in this encounter Plan of Treatment Upcoming Encounters Date Type Department Care Team (Late st Contact Info) Description 12/15/2024 11:30 AM EDT Office [place] [address] Charline Ziegler MD [facility] [place] [address] documented as of this encounter Visit Diagnoses Diagnosis Osteoarthritis of multiple joints, unspecified osteoarthritis type Calcific tendinitis of left shoulder Calcifying tendinitis of shoulder documented in this encounter Care Teams Workforce Advisor Relationship Specialty Start Date End Date Reji Newberry MD [facility] GENERAL [place] [address] PCP - General General Internal Medicine 07/13/15 documented as of this encounter
--- OUTSIDE RECORDS SUMMARY | 2024-07-09 11:17 | XMS_ITS | Encounter Summary ---
Author Organization [facility] Address [facility] [place] [address] Care Team Providers Care Co Op Name Role Phone Reji Adams MD Primary Care Provider [phone] Reason for Referral * Diagnostic Test (Routine) - Closed Specialty Diagnoses / Procedures Referred By Contac t Referred To Contact Radiology Diagnoses Left ear pain Procedures CT Temporal Bone wo Contrast (Generic) CT Temporal Bone wwo Contrast Leah Mccracken MD [facility] [place] [address] [facility] [place] [address] Referral ID Status Reason Start Date Expiration Date V isits Requested Visits Authorized [id number] Closed Specialty Service Requested 03/27/2016 03/27/2017 1 1 Reason for Visit * Diagnostic Test (Routine) - Closed Specialty Diagnoses / Procedures Referred By Contac t Referred To Contact Radiology Diagnoses Left ear pain Procedures CT Temporal Bone wo Contrast (Generic) CT Temporal Bone wwo Contrast Leah Mccracken MD [facility] [place] [address] [facility] [place] [address] Referral ID Status Reason Start Date Expiration Date V isits Requested Visits Authorized [id number] Closed Specialty Service Requested 03/27/2016 03/27/2017 1 1 Encounter Details Date Type Department Care Team (Latest Contact Info) Description 05/01/2016 12:53 PM EDT - 05/01/2016 11:59 PM EDT Hospital Encounter CT Scan at [facility] [place] [address] Loren Fuller MD [facility] [address] Left ear pain Discharge Disposition: Home Social History Tobacco [...] tablet Take 1 tablet by mouth daily. simvastatin (ZOCOR) 20 mg Tablet Take 1 tablet by mouth nightly. 90 tablet 3 04/02/2016 06/12/2016 metroNIDAZOLE (METROCREAM) 0.75 % Cream Apply topically as needed. Reported on 09/19/2016 09/19/2016 ibuprofen (ADVIL) 200 mg tablet Take 400 mg by mouth every 6 hours as needed. 05/08/2018 ALPRAZolam (XANAX) 0.25 mg tablet Take 0.25 mg by mouth 3 times daily as needed. 03/19/2018 Saw Eden 500 mg capsule Take 500 mg by [...] 11:30 AM EDT Office [place] [address] Charline Ziegler MD [facility] [place] [address] documented as of this encounter Procedures Procedure Name Priority Date/Time Associated Diagnosis Comments CT TEMPORAL BONE WO CONTRAST Routine 05/01/2016 1:18 PM EDT Left ear pain documented in this encounter Results * CT Temporal Bone wo Contrast (Generic) (05/01/2016 1:18 PM EDT) Anatomical Region Laterality Modality Head Computed Tomogra phy Impressions 05/01/2016 3:[address] of the temporal bones Narrative 05/01/2016 3:17 PM EDT EXAMINATION: CT TEMPORAL BONE WO CONTRAST (GENERIC) CLINICAL HISTORY: left ear pain, please do non contract scan TECHNIQUE: CT of the temporal bones performed without the use of intravenous contrast. COMPARISON: MRA of 11/09/2011, cervical spine MR 07/13/2015, cervical spine CT myelogram 11/29/2015 FINDINGS: Right: The external auditory canal is normal. Middle ear and mastoids are normally aerated. The ossicles are normal. The internal auditory canal is normal. Structures of the otic capsule are normal. Mineralization is normal throughout. The course of the 7th nerve is normal. Left: The external auditory canal is normal. Middle ear and mastoids are normally aerated. The ossicles are normal. The internal auditory canal is normal. Structures of the otic capsule are normal. Mineralization is normal throughout. The course of the 7th nerve is normal. Procedure Note Ken Hidalgo MD - 05/01/2016 EXAMINATION: CT TEMPORAL BONE WO CONTRAST (GENERIC) CLINICAL HISTORY: left ear pain, please do non contract scan TECHNIQUE: CT of the temporal bones performed without the use ofintravenous contrast. COMPARISON: MRA of 11/09/2011, cervical spine MR 07/13/2015, cervical spineCT myelogram 11/29/2015 FINDINGS: Right: The external auditory canal is normal. Middle ear and mastoidsare normally aerated. The ossicles are normal. The internal auditory canalis normal. Structures of the otic capsule are normal. Mineralization isnormal throughout. The course of the 7th nerve is normal. Left: The external auditory canal is normal. Middle ear and mastoids are normally aerated. The ossicles are normal. The internal auditory canalis normal. Structures of the otic capsule are normal. Mineralization isnormal throughout. The course of the 7th nerve is normal. IMPRESSION Normal CT of the temporal bones Loren Fuller MD IMG CT ORDERABLES documented in this encounter Visit Diagnoses Diagnosis Left ear pain Otalgia, unspecified documented in this encounter Care Teams Co Op Relationship Specialty Start Date End Date Reji Adams MD [facility] [place] [address] PCP - General General Internal Medicine 07/13/15 documented as of this encounter
--- OUTSIDE RECORDS SUMMARY | 2024-07-09 11:17 | XMS_ITS | Encounter Summary ---
Author Organization [facility] [place] [address] Care Team Providers Care Manager Client Support Name Role Phone Reji Adams MD Primary Care Provider [phone] Reason for Visit * Diagnostic Test (Routine) - Closed Specialty Diagnoses / Procedures Referred By Contac t Referred To Contact Radiology Diagnoses Chest pain, unspecified type Procedures NM myocardial perfusion scan, pharmacologic Reji Adams MD [facility] [place] [address] [place] [address] Referral ID Status Reason Start Date Expiration Date V isits Requested Visits Authorized [id number] Closed Specialty Service Requested 03/21/2016 03/21/2017 4 4 Encounter Details Date Type Department Care Team (Latest Contact Info) Description 03/22/2016 7:25 AM EDT Hospital Encounter [place] [address] Reji Adams MD [facility] [place] [address] Discharge Disposition: Home Social History [...] tablet Take 1 tablet by mouth daily. BORON ORAL Take 1 tablet by mouth daily. 05/01/2016 zrynuqba-lug-tasoxpgmg- vit D3 750 mg-125 mg -600 mg Tablet Take 2 tablets by mouth daily. 05/01/2016 metroNIDAZOLE (METROCREAM) 0.75 % Cream Apply topically as needed. Reported on 09/19/2016 09/19/2016 ibuprofen (ADVIL) 200 mg tablet Take 400 mg by mouth every 6 hours as needed. 05/08/2018 ALPRAZolam (XANAX) 0.25 mg tablet Take 0.25 mg by mouth 3 times daily as needed. 03/19/2018 Saw [place] 500 mg capsule Take 500 mg by [...] 11:30 AM EDT Office [place] [address] Charline Ziegler MD [facility] [place] [address] documented as of this encounter Procedures Procedure Name Priority Date/Time Associated Diagnosis Comments NM PHARMACOLOGIC STRESS AND REST MYOCARDIAL PERFUSION Routine 03/22/2016 9:22 AM EDT Chest pain, unspecified type documented in this encounter Visit Diagnoses Not on filedocumented in this encounter Administered Medications Inactive Administered Medications - up to 3 most recent administrations Medication Order MAR Action Action Date Dose Rate Site technetium (Tc-99m) sestamibi injection 7.7 mCi 7.7 mCi, Intravenous, ONCE PRN, 1 dose, Starting on Fri03/22/16 at 0740, Until Fri03/22/16 at 0740, Per Protocol, Routine Given 03/22/2016 7:40 AM EDT 7.7 mCi documented in this encounter Care Teams Manager Client Support Relationship Specialty Start Date End Date Reji Adams MD [facility] [place] [address] PCP - General General Internal Medicine 07/13/15 documented as of this encounter
--- OUTSIDE RECORDS SUMMARY | 2024-07-09 11:17 | XMS_ITS | Encounter Summary ---
Author Organization [facility] Address [facility] [place] [address] Care Team Providers Care Hair Boiler Operator Name Role Phone Reji Adams MD Primary Care Provider [phone] Reason for Visit * Reason Comments Right Shoulder Pain Encounter Details Date Type Department Care Team (Late st Contact Info) Description 11/06/2015 1:00 PM EDT Office [place] [address] Abbie Butcher PA [facility] [place] [address] Bilateral shoulder pain, unspecified chronicity Social History Tobacco Use Types Packs/Day Years Used Date Smoking Tobacco: Never Smokeless Tobacco: Current Chew Tobacco Cessation:Ready to Q uit: No; Counseling Given: No Comments:3 cans/ week. Alcohol [...] Sign Reading Time Taken Comments Blood Pressure 112/77 11/06/2015 1:09 PM EDT Pulse 62 11/06/2015 1:09 PM EDT Temperature - - Respiratory Rate - - Oxygen Saturation - - Inhaled Oxygen Concentration - - Weight 99.8 kg (220 lb) 11/06/2015 1:09 PM EDT s tated Height 177.8 cm (5' 10) 11/06/2015 1:09 PM EDT stated Body Mass Index 31.57 11/06/2015 1:09 PM EDT documented in this encounter Progress Notes * Abbie Butcher PA - 11/06/2015 1:32 PM EDT PATIENT NAME: Ken Mckeon AGE: 70 y.o. MR#: [id number] DATE OF VISIT: 11/06/2015 DATE OF INJURY/ONSET: Chronic STAFF: Dr. Dunn CHIEF COMPLAINT: follow up for bilateral shoulder pain HISTORY OF PRESENT ILLNESS: Mr. Mckeon is a 70 y.o. year old male who comes into clinic today for follow up regarding the bilateral shoulders. I have seen this patient in the past for left shoulder pain. He was given a subacromial injection at his last visit in August. He states that he did not have as much improvement with this injection as he had with previous injections. He has had a prior left shoulder MRI that showed no full-thickness rotator cuff tear, but there was extensive tendinopathyas well as evidence of biceps subluxation. He states that he has similar symptoms in his right shoulder. He has not had any recent injuries. He finds that he has pain with certain activities, but this is not constant. He has had surgery on his right shoulder, but he cannot remember whether this wasfor a rotator cuff repair. He has not had any recent injections for his right shoulder. He has had cervical spine surgery and has had issues with persistent numbness in his right arm. He states that he has an appointment in follow-up with his spine surgeon to discuss whether additional imaging of his spine would be recommended. PHYSICAL EXAM: Mr. Mckeon is alert and oriented. He appears in no acute discomfort and is resting comfortably in the exam room. Inspection: No erythema, ecchymosis, or swelling over the bilateral shoulders. Palpation: Nontender over the distal clavicles. He has some point tenderness over the anterior aspect of the shoulder over the long head of the biceps. He is not having much in the way of subacromialpain today. He also has pain over the upper trapezius at times. ROM: He is able to perform active overhead range of motion to about 150?? bilaterally. He has pain at end range. His external rotation is to 60??. Elbow, wrist, and finger range of motion remains grossly intact. Strength: 5/5 rotator cuff strength in all planes including empty can. He has pain with resisted range of motion. He feels that his arms are weak us by trying to maintain his strength. Orthopedic testing: Mild impingement testing on the left, negative on the right. Negative horizontal abduction test bilaterally. Positive Fairmont's on the right. Positive speed's and Yergason's bilaterally. Neurovascular: He reports diminished sensation distal to the elbow on the right at primarily extends into the thumb, index, and long fingers. He has intact sensation over both shoulders. Hands are well perfused. RADIOLOGICAL STUDIES: X-rays of the right shoulder show no acute fracture or dislocation. There is some irregularity at the inferior aspect of the glenoid. He also has some arthritis at the acromioclavicular joint. It also appears on multiple views that there is some irregularity at the deltoid tuberosity. ASSESSMENT: Bilateral shoulder pain with symptomatic biceps on exam clinically today PLAN: We again reviewed his treatment options. He is wondering whether meloxicam would be of benefit. He states that he was prescribed this by banquet cook in the past, but has not yet tried this. I did recommend trying this medication to see if this would help with his musculoskeletal complaints. He also is wondering whether topical Voltaren would be helpful. This too would be worth trying if he does not improve with oral anti-inflammatories. Since he did not have as much improvement with his last subacromial injection and seems to have more biceps pathology today we will also see about scheduling bilateral fluoroscopy guided glenohumeral cortisone injections. Depending on his response to these injections we will discuss whether he would benefit from any additional treatment, such as abiceps tenotomy. We would need to obtain an MRI of his right shoulder if we were leaning towards surgical management. He will return for follow up as needed. The patient understands to contact us if they have any other questions or concerns. The above documentation was completed using [email or web address] voice recognition software. documented in this encounter Plan of Treatment Upcoming Encounters Date Type Department Care Team (Late st Contact Info) Description 12/15/2024 11:30 AM EDT Office [place] [address] Charline Ziegler MD [facility] [place] [address] documented as of this encounter Visit Diagnoses Diagnosis Bilateral shoulder pain, unspecified chronicity documented in this encounter Care Teams Hair Boiler Operator Relationship Specialty Start Date End Date Reji Adams MD [facility] GENERAL [place] [address] PCP - General General Internal Medicine 07/13/15 documented as of this encounter
--- OUTSIDE RECORDS SUMMARY | 2024-07-09 11:17 | XMS_ITS | Encounter Summary ---
Author Organization [facility] Address [facility] [place] [address] Care Team Providers Care Music Orchestrator Name Role Phone Reji Adams MD Primary Care Provider [phone] Encounter Details Date Type Department Care Team (Latest Contact Info) Description 11/29/2015 10:35 AM EDT Hospital Encounter XRay at [address] [place] [address] Bright Casanova MD Discharge Disposition: Home Social History Tobacco Use [...] Take 1 tablet by mouth daily. 05/01/2016 meloxicam (MOBIC) 7.5 mg Tablet Take 1 tablet by mouth daily. 30 tablet 4 10/19/2015 02/08/2016 aiqijgol-yjd-sivtonpjg -vit D3 750 mg-125 mg -600 mg Tablet Take 2 tablets by mouth daily. 05/01/2016 metroNIDAZOLE (METROCREAM) 0.75 % Cream Apply topically as needed. Reported on 09/19/2016 09/19/2016 ibuprofen (ADVIL) 200 mg tablet Take 400 mg by mouth every 6 hours as needed. 05/08/2018 ALPRAZolam (XANAX) 0.25 mg tablet Take 0.25 mg by mouth 3 times daily as needed. 03/19/2018 Saw [place] 500 mg capsule Take 500 mg by [...] 11:30 AM EDT Office [place] [address] Charline Ziegler MD [facility] [place] [address] documented as of this encounter Procedures Procedure Name Priority Date/Time Associated Diagnosis Comments XR FLUORO GUIDED MYELOGRAM CERVICAL SPINE Routine 11/29/2015 1:03 PM EDT Right hand pain Paresthesia documented in this encounter Visit Diagnoses Not on filedocumented in this encounter Administered Medications Inactive Administered Medications - up to 3 most recent administrations Medication Order MAR Action Action Date Dose Rate Site iohexol (OMNIPAQUE) 300 mg/mL solution 10 mL 10 mL, Other, ONCE, 1 dose, On Fri11/29/15 at 1330, Routine Given 11/29/2015 1:00 PM EDT 10 mLs documented in this encounter Care Teams Music Orchestrator Relationship Specialty Start Date End Date Reji Adams MD [facility] [place] [address] PCP - General General Internal Medicine 07/13/15 documented as of this encounter
--- OUTSIDE RECORDS SUMMARY | 2024-07-09 11:17 | XMS_ITS | Encounter Summary ---
Author Organization [facility] [place] [address] Care Team Providers Care Hand Zipper Trimmer Name Role Phone Reji Newberry MD Primary Care Provider [phone] Reason for Visit * Reason Comments Otalgia zero energy, feel l javi crap x 4-5 days, ear pain x 2+ weeks, no fever; OTC meds not helping (herbal and zanax) Encounter Details Date Type Department Care Team (Late st Contact Info) Description 12/08/2015 1:40 PM EDT Office Visit Internal Medicine at [address] [address] Qian Power, MARYBEL [facility] [place] [address] Fatigue, unspecified type (Primary Dx); Urinary frequency Social History Tobacco Use Types Packs/Day Years Used Date Smoking Tobacco: Never Smokeless Tobacco: Current Chew Tobacco Cessation:Ready to Q uit: Yes Comments:3 cans/ week. Alcohol Use Standard Drinks/Week [...] Reading Time Taken Comments Blood Pressure 108/72 12/08/2015 1:46 PM EDT rig ht arm Pulse 73 12/08/2015 1:46 PM EDT Temperature 36.6 ??C (97.9 ??F) 12/08/2015 1:46 PM ED T Respiratory Rate 12 12/08/2015 1:46 PM EDT Oxygen Saturation 100% 12/08/2015 1:46 PM EDT Inhaled Oxygen Concentration - - Weight 98.9 kg (218 lb) 12/08/2015 1:46 PM EDT Height - - Body Mass Index 31.28 11/06/2015 1:09 PM EDT documented in this encounter Progress Notes * Qian Power, QUALITY CONTROL SUPERVISOR - 12/08/2015 1:41 PM EDT PCP: REJI NEWBERRY MD Chief Complaint Patient presents with ??? Otalgia zero energy, feel like crap x 4-5 days, ear pain x 2+ weeks, no fever; OTC meds not helping (herbal and zanax) SUBJECTIVE: Ken Mckeon is a 70 y.o. male who presents for ear pain that started about week ago, thinks it has gotten worse recently. - more constant recently, has had in past when he had NSAIDs. - He reports that he is very fatigued for the last week or so. He thinks that it is a little bit worse. He reports that he cannot walk a mile and this was not a problem for him before. - in the past he has had fatigue with prostatitis and is wondering if he might have prostatitis. Review of Systems Constitutional: Negative for chills and fatigue. HENT: Positive for ear pain (radiates from back of ear) and tinnitus. Negative for congestion, rhinorrhea, sinus pressure and sore throat. Respiratory: Negative for cough, shortness of breath and wheezing. Cardiovascular: Negative for chest pain and palpitations. Gastrointestinal: Negative for nausea, vomiting, abdominal pain and diarrhea. Genitourinary: Positive for urgency, frequency and decreased urine volume. Negative for flank pain. Skin: Negative for rash. Neurological: Positive for light-headedness (occasional). Negative for dizziness and headaches. Hematological: Negative for adenopathy. Allergies Allergen Reactions ??? Penicillins Tongue swelling Current Outpatient Prescriptions Medication Sig Dispense Refill ??? BORON ORAL Take 1 tablet by mouth daily. ??? meloxicam (MOBIC) 7.5 mg Tablet Take 1 tablet by mouth daily. 30 tablet 4 ??? vgxmyxoe-yss-nehpnolmj-vit D3 750 mg-125 mg -600 mg Tablet Take 2 tablets by mouth daily. ??? metroNIDAZOLE (METROCREAM) 0.75 % Cream Apply topically 2 times daily. ??? ibuprofen (ADVIL) 200 mg tablet Take 400 mg by mouth every 6 hours as needed. ??? ALPRAZolam (XANAX) 0.25 mg tablet Take 0.25 mg by mouth 3 times daily as needed. ??? multivitamin (THERAGRAN) tablet Take 1 tablet by mouth daily. ??? Saw [place] 500 mg capsule Take 500 mg by mouth daily. ??? Mavis Extract 500 mg Cap Take 1 capsule by mouth daily. ??? naproxen sodium (ALEVE) 220 mg tablet Take 220 mg by mouth as needed. ??? ciprofloxacin (CIPRO) 250 mg Tablet Take 1 tablet by mouth 2 times daily. 28 tablet 0 No current facility-administered medications for this [...] ??? Shoulder pain, bilateral M25.511, M25.512 OBJECTIVE: Filed Vitals: 12/08/15 1346 BP: 108/72 Pulse: 73 Temp: 36.6 ??C (97.9 ??F) TempSrc: Oral Resp: 12 Weight: 98.884 kg (218 lb) SpO2: 100% PHYSICAL EXAM: Physical Exam Constitutional: He is [...] Judgment and thought content normal. Vitals reviewed. patient refused prostate exam today ASSESSMENT & PLAN: Ken was seen today for otalgia. Diagnoses and all orders for this visit: Fatigue, unspecified type Orders: - CBC (with Diff); Future - Comprehensive metabolic panel (non-fasting); Future - CBC (with Diff) - Comprehensive metabolic panel (non-fasting) - Hemogram - Differential, Automated Urinary frequency Orders: - POCT urine dipstick - Urine culture Clean Catch Urine - ciprofloxacin (CIPRO) 250 mg Tablet; Take 1 tablet by mouth 2 times daily. - will treat for prostatitis to see if improves symptoms. documented in this encounter Plan of Treatment Upcoming Encounters Date Type Department Care Team (Late st Contact Info) Description 12/15/2024 11:30 AM EDT Office [place] [address] Charline Ziegler MD [facility] [place] [address] documented as of this encounter Procedures Procedure Name Priority Date/Time Associated Diagnosis Comments URINE HOLD Routine 12/08/2015 6:35 PM EDT URINE HOLD Routine 12/08/2015 6:35 PM EDT HEMOGRAM Routine 12/08/2015 2:29 PM EDT Fatigue, unspecified type DIFFERENTIAL, AUTOMATED Routine 12/08/2015 2:29 PM EDT Fatigue, unspecified type CBC (WITH DIFF) Routine 12/08/2015 2:29 PM EDT Fatigue, unspecified type COMPREHENSIVE METABOLIC PANEL Routine 12/08/2015 2:29 PM EDT Fatigue, unspecified type URINE CULTURE Routine 12/08/2015 2:24 PM EDT Urinary frequency POCT URINE DIPSTICK Routine 12/08/2015 2 :05 PM EDT Urinary frequency documented in this encounter Results * Urine Hold (12/08/2015 6:35 PM EDT) Hold, Urine Sample in lab. [facility] Urine specimen (specimen) Urine / Unknown 12/08/2015 6:35 PM EDT 12/08/2015 6:35 PM EDT Reji Newberry MD URINE ORDERABLES Performing Organization Address [facility]/ZIP Co de Phone Number [facility] [place] [address] * Urine Hold (12/08/2015 6:35 PM EDT) Hold, Urine Sample in lab. [facility] Urine specimen (specimen) Urine / Unknown 12/08/2015 6:35 PM EDT 12/08/2015 6:35 PM EDT Reji Newberry MD URINE ORDERABLES Performing Organization Address City/[facility]/ZIP Co de Phone Number [facility] [place] [address] * Differential, Automated (12/08/2015 2:29 PM EDT) Neutrophil % 59.5 % [facility] Neutrophil Absolute 4.78 1.50 - 6.30 x10(3)/[facility] Lymph % 31.9 % [facility] Lymphocytes Abs 2.6 1.0 - 3.6 x10(3)/[facility] Monocyte % 6.6 % [facility] Monocyte Abs 0.5 0.2 - 1.0 x10(3)/[facility] Eos % 1.5 % [facility] Eosinophils Abs 0.1 0.0 - 0.5 x10(3)/[facility] Basophil % 0.4 % [facility] Baso Absolute 0.0 0.0 - 0.2 x10(3)/[facility] Immature Gran % 0.10 % [facility] Comment: Immature granulocytes(IG's)percentage and absolute count will include metamyelocytes, myelocytes, and promyelocytes. Blood smears from CBCs yielding IG's will be scanned manually for concordance. If this scan disagrees with the automated IG or if promyelocytes are noted, a manual differential will be performed. Immature Gran Absolute 0.01 0.00 - 0.05 x10(3)/[facility] Blood specimen (specimen) 12/08/2015 2:29 PM EDT 12/08/2015 6:34 PM EDT Narrative Resulting Agency Comment Spec In Lab Reji Newberry MD HEMATOLOGY ORDERABLE S [facility] [place] [address] * Hemogram (12/08/2015 2:29 PM EDT) White Blood Cell 8.0 4.0 - 10.0 x10(3)/[facility] Red Blood Cell 5.08 4.63 - 6.08 x10(6)/[facility] Hemoglobin 15.7 13.7 - 17.5 gm/dL [facility] Hematocrit 44.6 40.0 - 51.0 % [facility] Mean Cell Volume 87.8 79.0 - 92.0 fL [facility] Mean Cell Hemoglobin 30.9 25.6 - 32.2 pg [facility] Mean Cell Hemoglobin Concentration 35.2 32.0 - 36.5 gm/dL [facility] Platelet 190 145 - 370 x10(3)/mcL [facility] RDW Standard Deviation 44.4 35.0 - 46.0 fL [facility] RDW coefficient of variation 13.8 10.9 - 14.4 % [facility] Mean Platelet Volume 10.8 9.0 - 12.0 fL [facility] Blood specimen (specimen) 12/08/2015 2:29 PM EDT 12/08/2015 6:34 PM EDT Narrative Resulting Agency Comment Spec In Lab Reji Newberry MD HEMATOLOGY ORDERABLE S [facility] [place] [address] * Comprehensive metabolic panel (non-fasting) (12/08/2015 2:29 PM EDT) Glucose 91 65 - 199 mg/dL [facility] Comment:Diabetes: >=200 mg/d L plus symptoms Blood Urea Nitrogen 16 10 - 20 mg/dL [facility] Creatinine 1.02 0.80 - 1.50 mg/dL [facility] Comment: Please note that the pediatric reference intervals supplied above were not validated at [facility]. Results from pediatric patients should be interpreted in conjunction to the patient's age, height and muscle mass. Sodium 139 135 - 145 mmol/L [facility] Potassium 4.3 3.5 - 5.0 mmol/L [facility] Comment: Please note: ??Patients with WBC >100,000 may have falsely elevated Potassium levels. ??For accurate Potassium quantification in these patients send serum separator tube (gold top) for subsequent determinations. ??Contact the Clinical Chemistry Laboratory if there are any questions. Chloride 101 98 - 107 mmol/L [facility] Carbon Dioxide 27 22 - 31 mmol/L [facility] Anion Gap 11 5 - 15 mmol/L [facility] Calcium 9.2 8.5 - 10.5 mg/dL [facility] Protein, Total 6.9 6.1 - 8.0 gm/dL [facility] Albumin 4.3 3.2 - 5.2 gm/dL [facility] Aspartate Aminotransferase 20 0 - 39 unit/L [facility] Alanine Aminotransferase 14 0 - 55 unit/L [facility] Alkaline Phosphatase 48 40 - 120 unit/L [facility] Bilirubin, Total 0.7 0.2 - 1.3 mg/dL [facility] Bilirubin, Direct 0.2 0.0 - 0.3 mg/dL [facility] Est Glomerular Filtration Rate >60 >=60 [facility] Comment: This estimated GFR (eGFR) [...] the following links into your internet browser. [email or web address] Blood specimen (specimen) 12/08/2015 2:29 PM EDT 12/08/2015 6:34 PM EDT Narrative Resulting Agency Comment Spec In Lab Reji Newberry MD CHEMISTRY ORDERABLES [facility] [place] [address] * Urine culture Clean Catch Urine (12/08/2015 2:24 PM EDT) Urine Culture No growth (Less than 1,000 cfu/ml). [facility] Urine specimen obtained by clean catch procedure (specimen) 12/08/2015 2:24 PM EDT 12/08/2015 7:26 PM EDT Narrative Resulting Agency Comment Spec In Lab Reji Newberry MD MICROBIOLOGY - GENER AL ORDERABLES [facility] [place] [address] * POCT urine dipstick (12/08/2015 2:05 PM EDT) POC Sp [place] 1.015 1.002 - 1.030 POC pH, UA [...] Blood, UA neg Negative - Negative denise/uL 12/08/2015 2:05 PM EDT Reji Newberry MD POINT OF CARE TEST O RDERABLES documented in this encounter Visit Diagnoses Diagnosis Fatigue, unspecified type- Primary Urinary frequency documented in this encounter Care Teams Hand Zipper Trimmer Relationship Specialty Start Date End Date Reji Newberry MD [facility] [place] [address] PCP - General General Internal Medicine 07/13/15 documented as of this encounter
--- OUTSIDE RECORDS SUMMARY | 2024-07-09 11:17 | XMS_ITS | Encounter Summary ---
Author Organization [facility] [place] [address] Care Team Providers Care Blow Pit Helper Name Role Phone Reji Adams MD Primary Care Provider [phone] Encounter Details Date Type Department Care Team (Latest Contact Info) Description 11/22/2015 2:10 PM EDT Laboratory Appointment Lab [address] [place] [phone] HX: anticoagulation Social History Tobacco Use Types Packs/Day Years [...] AM EDT Office Visit [place] [phone] Charline Ziegler MD [facility] [place] [place] [address] documented as of this encounter Procedures Procedure Name Priority Date/Time Associated Diagnosis Comments APTT Routine 11/22/2015 1:34 PM EDT HX: anticoagulation PROTHROMBIN TIME Routine 11/22/2015 1:34 PM EDT HX: anticoagulation PLATELET COUNT Routine 11/22/2015 1:34 PM EDT HX: anticoagulation documented in this encounter Results * Platelet count (11/22/2015 1:34 PM EDT) Platelet 175 145 - 370 x10(3)/mcL [facility] Blood specimen (specimen) 11/22/2015 1:34 PM EDT 11/22/2015 1:38 PM EDT Narrative Resulting Agency Comment Spec In Lab Logan Myrick MD HEMATOLOGY ORDERABLE S Performing Organization Address [facility] Co de Phone Number [facility] [place] [address] * APTT (11/22/2015 1:34 PM EDT) Partial Thromboplastin Time 32 25 - [address] [facility] Comment: The recommended therapeutic range for full dose, unfractionated heparin at [facility] is 80 ? 114 seconds. The use of the anti-Xa (heparin) level rather than the PTT is recommended for monitoring anticoagulation intensity in critically ill patients receiving unfractionated heparin by continuous IV infusion. Blood specimen (specimen) 11/22/2015 1:34 PM EDT 11/22/2015 1:38 PM EDT Narrative Resulting Agency Comment Spec In Lab Logan Myrick MD HEMATOLOGY ORDERABLE S Performing Organization Address [facility]/ZIP Co de Phone Number [facility] [place] [address] * Prothrombin Time (11/22/2015 1:34 PM EDT) Prothrombin Time 14.4 12.0 - 15.[address] [facility] Comment: An INR <2.0 indicates adequate procoagulant activity for hemostasis in most patients without underlying bleeding disorders, though the INR may not adequately reflect hemostatic capacity in patients with liver disease and synthetic impairment. The recommended target INR range for therapeutic anticoagulation is 2.0 ? 3.0 for most applications, though lower and higher ranges may be appropriate depending on clinical circumstances. International Normalization Ratio 1.1 0.9 - 1.1 [facility] Blood specimen (specimen) 11/22/2015 1:34 PM EDT 11/22/2015 1:38 PM EDT Narrative Resulting Agency Comment Spec In Lab Logan Myrick MD HEMATOLOGY ORDERABLE S [facility] [place] [address] documented in this encounter Visit Diagnoses Diagnosis HX: anticoagulation Encounter for long-term (current) use of anticoagulants documented in this encounter Care Teams Blow Pit Helper Relationship Specialty Start Date End Date Reji Adams MD [facility] [place] [address] PCP - General General Internal Medicine 07/13/15 documented as of this encounter
--- OUTSIDE RECORDS SUMMARY | 2024-07-09 11:17 | XMS_ITS | Encounter Summary ---
Author Organization [facility] Address [facility] [place] [address] Care Team Providers Care Readers' Advisory Service Librarian Name Role Phone Reji Adams MD Primary Care Provider [phone] Reason for Visit * Reason Onset Date Comments Medication Problem 04/15/2016 Encounter Details Date Type Department Care Team (Late st Contact Info) Description 04/15/2016 Telephone Internal Medicine at [address] [address] Alexis Kate Medication Problem Social History Tobacco Use Types [...] Telephone Encounter - Amrita Rodriguez RN - 04/15/2016 12:33 PM EDT Clarified order with Dr Adams and patient will take Simvastatin. * Telephone Encounter - Alexis Kate - 04/15/2016 11:04 AM EDT Message: Patient is calling in regards to the statin that was called in. Stated that Dr. Adams hadmentioned Pravastatin and Simvastatin was called in. Not sure why something different was called in. Please call back. Caller and relationship (if other than patient-full name): Self Best time to call back: any Ok to leave a message: [yes] Nurse contacted via: Message: x documented in this encounter Plan of Treatment Upcoming Encounters Date Type Department Care Team (Late st Contact Info) Description 12/15/2024 11:30 AM EDT Office [place] [address] Charline Ziegler MD [facility] [place] [address] documented as of this encounter Visit Diagnoses Not on filedocumented in this encounter Care Teams Readers' Advisory Service Librarian Relationship Specialty Start Date End Date Reji Adams MD [facility] [place] [address] PCP - General General Internal Medicine 07/13/15 documented as of this encounter
--- OUTSIDE RECORDS SUMMARY | 2024-07-09 11:17 | XMS_ITS | Encounter Summary ---
Author Organization [facility] Address [facility] [place] [address] Care Team Providers Care Nursing Program Director Name Role Phone Reji Adams MD Primary Care Provider [phone] Reason for Referral * Diagnostic Test (Routine) - Closed Specialty Diagnoses / Procedures Referred By Duglas arizmendi Referred To Contact Radiology Diagnoses Left ear pain Procedures CT Temporal Bone wo Contrast (Generic) CT Temporal Bone wwo Contrast Leah Mccracken MD [facility] OTOLARYNGOLOGY [place] [address] [facility] [place] [address] Referral ID Status Reason Start Date Expiration Date V isits Requested Visits Authorized [id number] Closed Specialty Service Requested 03/27/2016 03/27/2017 1 1 Reason for Visit * Reason Comments Hearing Loss Hearing loss and jennifer n in the left ear, pain sx's have been for several months, hearing loss sx's also multiple years * Consultation (Routine) - Closed Specialty Diagnoses / Procedures Referred By Duglas arizmendi Referred To Contact Otolaryngology Diagnoses Hearing loss, unspecified laterality Qian Power, BOX SEALING MACHINE OPERATOR [facility] [place] [address] [facility] Otolaryngology [address] [place] [id number] Referral ID Status Reason Start Date Expiration Date V isits Requested Visits Authorized [id number] Closed Consult, Test & Treat 02/08/2016 02/07/2017 1 1 Encounter Details Date Type Department Care Team (Late st Contact Info) Description 03/27/2016 3:00 PM EDT Office [place] [address] Leah Mccracken MD [facility] DR OTOLARYNGOLOGY [place] [address] Left ear pain; Leukoplakia, lip Social History Tobacco Use Types Packs/Day Years [...] Sign Reading Time Taken Comments Blood Pressure 104/69 03/27/2016 3:08 PM EDT Pulse 69 03/27/2016 3:08 PM EDT Temperature - - Respiratory Rate - - Oxygen Saturation - - Inhaled Oxygen Concentration - - Weight 97.1 kg (214 lb) 03/27/2016 3:08 PM EDT Height - - Body Mass Index 29.85 03/20/2016 1:14 PM EDT documented in this encounter Progress Notes * Leah Mccracken - 03/27/2016 3:00 PM EDT [facility] New Patient Note Consult requested by: Qian Power CHIEF COMPLAINT Pain in left ear and hearing loss HISTORY History was obtained through review of the relevant records, discussion with referring physician and/or patient interview. This is a 70 y.o. 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 Present for past several months. There 60-75% of the time. Severity fluctuating, sometimes will feel hot or burning at times. Pain can be between 0-7 on pain scale. Usually will last for several hours when it comes. Does not associate with any particular triggers No recent ear infections No recent head scans Some balance difficulties Did have neck surgery last year and does have discomfort on the left post surgery. Does have some ringing in the ear - high pitch whining, seems to be more frequent, worsened by NSAIDS No prior ear surgeries No significant family history of hearing problems Did have a MRI when asymetric hearing loss first notes Few ear infections but nothing major. Father with diabetes No immunosupression PROBLEM LIST Patient Active Problem List Diagnosis Date Noted ??? Shoulder pain, bilateral 11/06/2015 ??? Right arm numbness 09/04/2015 ??? Right hand pain 01/13/2015 ??? Peripheral neuropathy 09/26/2014 ??? Numbness 09/26/2014 ??? Urinary urgency 09/26/2014 ??? Fatigue 09/26/2014 ??? Cervical stenosis of spinal canal 08/16/2014 ??? Finger pain 01/25/2014 ??? Ileitis 09/01/2013 ??? Back pain 04/12/2013 ??? Depression 01/20/2013 ??? Left shoulder pain 12/11/2012 ??? Cervical radiculopathy 09/24/2012 ??? Insomnia 09/01/2012 ??? Neck pain 08/24/2012 Chronic ??? Anxiety 03/13/2012 ??? Lightheadedness 11/20/2011 ??? Varicose veins of legs 11/20/2011 ??? OA (osteoarthritis) of knee ??? Cataract extraction status of left eye 05/10/2011 ??? Status post total knee replacement 01/04/2011 PAST HISTORY Past Medical History Diagnosis Date ??? BPH (benign prostatic hyperplasia) ??? Neck pain 08/24/2012 ??? OA (osteoarthritis) of knee right Past Surgical History Procedure Laterality Date ??? Created by interface Past surg hx. Procedure Date: 09/19/2010 ??? Pro ligate/strip long saph vein belw sep-fem junc 06/02/2012 LIGATION\DIV\STRIP GREATER SAPHENOUS VEIN performed by BEATRICE RODRÍGUEZ at [facility] MAIN OR ??? Pro phleb veins - extrem - to 20 06/02/2012 STAB PHLEBECTOMY KARLI VEINS, EXTREMITY 10-20 INCISIONS-SANTI performed by BEATRICE RODRÍGUEZ at [facility] MA[facility] OR ??? Pro colonoscopy, diagnostic 09/07/2013 COLONOSCOPY, DIAGNOSTIC performed by Ximena Gu MD at [facility] ENDOSCOPY FAMILY HISTORY Family History Problem Relation Age of Onset ??? Cancer Mother bone ??? Diabetes Father ??? Cancer Father testicular SOCIAL HISTORY Social History Substance Use Topics ??? Smoking status: Never Smoker ??? Smokeless tobacco: Current User Types: Chew Comment: 3 cans/ week. ??? Alcohol use 0.0 - 0.6 oz/week 0 - 1 Cans of beer per week chews tobacco ALLERGIES Allergies Allergen Reactions ??? Penicillins Tongue swelling MEDICATIONS Current Outpatient Prescriptions Medication Sig Dispense Refill ??? ALPRAZolam (XANAX) 0.25 mg tablet Take 0.25 mg by mouth 3 times daily as needed. ??? BORON ORAL Take 1 tablet by mouth daily. ??? ggesshri-kel-zrbmqgljl-vit D3 750 mg-125 mg -600 mg Tablet Take 2 tablets by mouth daily. ??? metroNIDAZOLE (METROCREAM) 0.75 % Cream Apply topically 2 times daily. ??? ibuprofen (ADVIL) 200 mg tablet Take 400 mg by mouth every 6 hours as needed. ??? multivitamin (THERAGRAN) tablet Take 1 tablet by mouth daily. ??? Saw [place] 500 mg capsule Take 500 mg by mouth daily. ??? Mavis Extract 500 mg Cap Take 1 capsule by mouth daily. ??? naproxen sodium (ALEVE) 220 mg tablet Take 220 mg by mouth as needed. No current facility-administered medications for this visit. ROS: +right arm numbness +chronic back problems +palpatitions, recent cardica stress test but everything ok Pertinent positive findings discussed above. No other findings on review of constitutional visual, cardiovascular, respiratory, gastrointestinal, genitourinary, musculoskeletal, dermatologic, neurological, psychiatric, endocrine, hematologic or immunologic systems. EXAM: Vitals: Blood pressure 104/69, pulse 69, weight 97.1 kg (214 lb). General: No acute distress, cooperative with exam, normal voice quality Face: Symmetric, atraumatic Eyes: Extraocular movement is full and intact. No dysconjugate gaze. Periocular structures and conjunctiva healthy without lesions. Ears: Normal exam of the external ear, canal and tympanic membrane on right. Left TM with 2-3 mm keratin gonzalo, TM appears intact, no evidence of infection or deeper cholesteatoma Nose: Normal external exam. Normal exam of the septum and turbinates. Mouth: Midline lower Lip with leukoplakia and gingiva pink, moist, without lesions. Gums/dentition healthy. Jassi granules. Tongue and floor of mouth without lesions or masses. Hard palate without lesions. Pharynx: Normal exam of the tonsils, tonsillar fossa, soft palate, lateral pharyngeal wall, and posterior pharynx. Neck: Soft supple. Thyroid gland without masses or asymmetry. Trachea midline without deviation. Lymph: No significant cervical lymphadenopathy. Resp: Breathing comfortably without stridor or retractions. Normal respirations. CV: Regular rate and rhythm MSK: Normal neck range of motion. Skin: Skin survey of the head and neck is without concerning lesion. Neurologic: Cranial nerves II-XII intact and symmetric. Responds appropriately to questions. Psych: Normal mood and affect. REVIEW OF IMAGING STUDIES: MRI head angio from 2011 with inaadequate imaging of the IAC, prior IAC imaging in 1997 when asymmetry first noticed AUDIOGRAM Left asymmetric SN hearing loss stable from prior audiogram ASSESSMENT/RECOMMENDATIONS: 70 year old male with intermittent left ear pain. Small keritan gonzalo posteriorly on TM unlikely baltazar cause of pain. Would recommend CT scan of temporal bone to further evaluate pain and for middle ear extension Leukoplakia of lower lip. Patient states it is followed by dentist and clears if he stops chewing tobacco for a few days. Encouraged quitting. Will continue to follow. - CT temporal bone - RTC to re-evaluate keratin gonzalo and oral leukoplakia scan and discuss CT results * Loren Fuller MD - 03/27/2016 3:00 PM EDT Pediatric Otolaryngology Attending Physician Addendum I reviewed the history and saw and examined this patient with the resident Dr. Mccracken. I agree withthe assessment and plan documented above unless otherwise specified in my addendum. Loren Fuller MD, PhD Pediatric Otolaryngology [facility] documented in this encounter Plan of Treatment Upcoming Encounters Date Type Department Care Team (Late st Contact Info) Description 12/15/2024 11:30 AM EDT Office Visit Gastroenterology at [facility] [place] [address] Charline Ziegler MD [facility] DR [place] [address] documented as of this encounter Results * CT Temporal Bone [...] Diagnoses Diagnosis Left ear pain Otalgia, unspecified Leukoplakia, lip Leukoplakia of oral mucosa, including tongue Left ear pain Otalgia, unspecified documented in this encounter Care Teams Nursing Program Director Relationship Specialty Start Date End Date Reji Adams MD [facility] [place] [address] PCP - General Internal Medicine 07/13/15 documented as of this encounter
--- OUTSIDE RECORDS SUMMARY | 2024-07-09 11:17 | XMS_ITS | Encounter Summary ---
Author Organization [facility] Address [facility] [place] [address] Care Team Providers Care Extrusion Press Operator Name Role Phone Reji Adams MD Primary Care Provider [phone] Reason for Visit * Reason Onset Date Comments Medical Care Coordination 03/21/2016 Encounter Details Date Type Department Care Team (Late st Contact Info) Description 03/21/2016 Telephone Internal Medicine at [place] [id number] [place] [address] Medical Care Coordination Social History Tobacco Use [...] encounter Miscellaneous Notes * Telephone Encounter - Erica Hutchinson RN - 03/21/2016 9:57 AM EDT Care Coordination Note - [facility] - Patricia Transition of Care call to patient to f/u after [facility] ED visit yesterday for chest pain. EKG's, troponins negative. Patient declined offer to stay overnight and have stress test this morning. Stress test order was not placed. Discussed with who has now placed the order. I spoke with patient this morning. He states he still does not feel right. I have scheduled him to see Dr. Adams tomorrow to discuss incidental finding of right hand pill rolling motion in the ED. documented in this encounter Plan of Treatment Upcoming Encounters Date Type Department Care Team (Late st Contact Info) Description 12/15/2024 11:30 AM EDT Office [place] [address] Charline Ziegler MD [facility] [place] [address] documented as of this encounter Visit Diagnoses Not on filedocumented in this encounter Care Teams Extrusion Press Operator Relationship Specialty Start Date End Date Reji Adams MD [facility] GENERAL [place] [address] PCP - General General Internal Medicine 07/13/15 documented as of this encounter
--- OUTSIDE RECORDS SUMMARY | 2024-07-09 11:17 | XMS_ITS | Encounter Summary ---
Author Organization [facility] [place] [address] Care Team Providers Care Cement Conveyor Operator Name Role Phone Reji Adams MD Primary Care Provider [phone] Encounter Details Date Type Department Care Team (Late st Contact Info) Description 09/07/2015 Orders Only Internal Medicine at [address] [address] Qian Power APRN [facility] [place] [address] Palpitation (Primary Dx) Social History Tobacco Use Types [...] as of this encounter Progress Notes * Qian Power APRN - 09/07/2015 2:46 PM EST Patient stopped into clinic today. He reports more palpitaitons last night and almost every day. Would like to proceed with holter monitor. documented in this encounter Plan of Treatment Upcoming Encounters Date Type Department Care Team (Late st Contact Info) Description 12/15/2024 11:30 AM EDT Office [place] [address] Charline Ziegler MD [facility] [address] documented as of this encounter Visit Diagnoses Diagnosis Palpitation- Primary Palpitations documented in this encounter Care Teams Cement Conveyor Operator Relationship Specialty Start Date End Date Reji Adams MD [facility] [place] [address] PCP - General General Internal Medicine 07/13/15 documented as of this encounter
--- OUTSIDE RECORDS SUMMARY | 2024-07-09 11:17 | XMS_ITS | Encounter Summary ---
Author Organization [facility] [place] [address] Care Team Providers Care Boat Outfitter Name Role Phone Reji Adams MD Primary Care Provider [phone] Encounter Details Date Type Department Care Team (Latest Contact Info) Description 03/14/2016 9:50 AM EDT Laboratory Appointment Lab [address] [place] [phone] Elevated cholesterol Social History Tobacco Use Types Packs/Day Years [...] EDT Office [place] [phone] Charline Ziegler MD [facility] [address] documented as of this encounter Procedures Procedure Name Priority Date/Time Associated Diagnosis Comments LIPID PANEL (REFLEX DIRECT LDL) Routine 03/14/2016 9:50 AM EDT Elevated cholesterol documented in this encounter Results * (ABNORMAL) Lipid panel (fasting) (03/14/2016 9:50 AM EDT) Cholesterol, Total 183 <=199 mg/dL [facility] Comment: Recommendations of the NCEP Adult Treatment Panel for the following risk cutoff thresholds for the [place] population: Desirable: <200 mg/dL Borderline High: 200-239 mg/dL High: > or = 240 mg/dL Triglyceride 81 <=149 mg/dL [facility] Comment: Reference Range: Normal triglycerides: ??<150 mg/dL Borderline high: ??150-199 mg/dL High: ??200-499 mg/dL Very high: ??>wv=370 mg/dL MARKEL 2001; 285(19):0305-2849 HDL Cholesterol 63 >=40 mg/dL [facility] Comment: Reference range: ??Low HDL: ?? < 40 mg/dL ??Normal: ?40-60 mg/dL ??Desirable: > 60 mg/dL MARKEL 2001; 285(19):0157-7702 LDL Cholesterol 104(H) <=99 mg/dL [facility] Comment: Reference range: ?? Optimal: ?<100 mg/dL ?? Near Optimal/Above Optimal: ?? 100-129 mg/dL ?? Borderline high: ?130-159 mg/dL ?? High: ? 160-189 mg/dL ?? Very high: ?>pl=158 mg/dL MARKEL 2001: 285(19):4661-8854 Cholesterol/HDL Ratio 2.9 ratio [facility] Comment: A Cholesterol to HDL ratio below 4:1 is desirable. ??Studies suggest that increased CAD risk occurs at ratios above 5 for females and above 6 for men. ? [place] Heart Association ??(http://www.americanheart.org) ? [place] Int Med, 1994; 121:641 ? AM J Med, 1998; 105(1A):48S Blood specimen (specimen) 03/14/2016 9:50 AM EDT 03/14/2016 10:02 AM EDT Narrative Resulting Agency Comment Spec In Lab Reji Adams MD CHEMISTRY ORDERABLES Performing Organization Address City/State/[facility] Co de Phone Number [facility] [place] [address] documented in this encounter Visit Diagnoses Diagnosis Elevated cholesterol Pure hypercholesterolemia documented in this encounter Care Teams Boat Outfitter Relationship Specialty Start Date End Date Reji Adams MD [facility] [place] [address] PCP - General General Internal Medicine 07/13/15 documented as of this encounter
--- OUTSIDE RECORDS SUMMARY | 2024-07-09 11:17 | XMS_ITS | Encounter Summary ---
Author Organization [facility] Address [facility] [place] [address] Care Team Providers Care Plumber Pipe Fitting Name Role Phone Reji Adams MD Primary Care Provider [phone] Encounter Details Date Type Department Care Team (Latest Contact Info) Description 11/06/2015 11:46 AM EDT - 11/06/2015 11:59 PM EDT Hospital Encounter XRay at [address] [place] [address] Frantz Dunn MD [facility] [place] [address] Right shoulder pain Discharge Disposition: Home Social History [...] mouth daily. 30 tablet 4 10/19/2015 02/08/2016 iziiwxgs-eea-kauidjitw -vit D3 750 mg-125 mg -600 mg Tablet Take 2 tablets by mouth daily. 05/01/2016 metroNIDAZOLE (METROCREAM) 0.75 % Cream Apply topically as needed. Reported on 09/19/2016 09/19/2016 ibuprofen (ADVIL) 200 mg tablet Take 400 mg by mouth every 6 hours as needed. 05/08/2018 ALPRAZolam (XANAX) 0.25 mg tablet Take 0.25 mg by mouth 3 times daily as needed. 03/19/2018 Saw Truchas 500 mg capsule Take 500 mg by [...] AM EDT Office [place] [address] Charline Ziegler MD [facility] [place] [address] documented as of this encounter Procedures Procedure Name Priority Date/Time Associated Diagnosis Comments XR SHOULDER RIGHT Routine 11/06/2015 12: 03 PM EDT Right shoulder pain documented in this encounter Results * XR Shoulder Right (GENERIC) (11/06/2015 12:03 PM EDT) Anatomical Region Laterality Modality Shoulder Right Digital Radiogra phy Impressions 11/06/2015 1:39 PM EDT IMPRESSION: No fracture or dislocation. Mild to moderate degenerative changes in glenohumeral joint and AC joint. Narrative 11/06/2015 1:39 PM EDT EXAMINATION: XR SHOULDER RIGHT CLINICAL HISTORY: right shoulder pain TECHNIQUE: 4 views of right shoulder COMPARISON: None FINDINGS: No fracture, dislocation or other acute traumatic finding is seen. There are small marginal osteophytes in the glenohumeral joint but the joint space is fairly well-preserved. There is a moderate degree of acromioclavicular arthropathy. No soft tissue calcification or other significant abnormality is seen. Procedure Note Rigo Reyes MD - 11/06/2015 EXAMINATION: XR SHOULDER RIGHT CLINICAL HISTORY: right shoulder pain TECHNIQUE: 4 views of right shoulder COMPARISON: None FINDINGS: No fracture, dislocation or other acute traumatic finding is seen. Thereare small marginal osteophytes in the glenohumeral joint but the joint spaceis fairly well-preserved. There is a moderate degree of acromioclavicular arthropathy. No soft tissue calcification or other significant abnormalityis seen. IMPRESSION IMPRESSION: No fracture or dislocation. Mild to moderate degenerative changes in glenohumeral joint and ACjoint. Frantz Dunn MD IMG DX ORDERABLES documented in this encounter Visit Diagnoses Diagnosis Right shoulder pain Pain in joint, shoulder region documented in this encounter Care Teams Plumber Pipe Fitting Relationship Specialty Start Date End Date Reji Adams MD [facility] [place] [address] PCP - General General Internal Medicine 07/13/15 documented as of this encounter
--- OUTSIDE RECORDS SUMMARY | 2024-07-09 11:17 | XMS_ITS | Encounter Summary ---
Author Organization [facility] [place] [address] Care Team Providers Care Automatic Pinsetter Mechanic Name Role Phone Reji Adams MD Primary Care Provider [phone] Reason for Visit * Reason Comments Follow-up Encounter Details Date Type Department Care Team (Late st Contact Info) Description 03/22/2016 1:00 PM EDT Office Visit Internal Medicine at [address] [address] Reji Adams MD [facility] [place] [address] Chest pain, unspecified type; Tremor Social History Tobacco Use Types Packs/Day Years [...] Reading Time Taken Comments Blood Pressure 112/74 03/22/2016 12:56 PM EDT Pulse 77 03/22/2016 12:56 PM EDT Temperature 36.9 ??C (98.5 ??F) 03/22/2016 12:56 PM E DT Respiratory Rate 14 03/22/2016 12:56 PM EDT Oxygen Saturation 99% 03/22/2016 12:56 PM EDT Inhaled Oxygen Concentration - - Weight 97.3 kg (214 lb 9.6 oz) 03/22/2016 12:56 PM EDT Height - - Body Mass Index 29.93 03/20/2016 1:14 PM EDT documented in this encounter Patient Instructions * Patient Instructions* Reji Adams MD - 03/22/2016 1:00 PM EDT Would recommend pravastatin 20mg daily documented in this encounter Progress Notes * Reji Adams MD - 03/22/2016 1:00 PM EDT ESTABLISHED PATIENT VISIT I. HISTORY a. Reason(s) for Visit: Ken Mckeon 70 y.o. male who presents today due to complaint(s) of: Chief Complaint Patient presents with ??? Follow-up b. History of Present Illness:[] Here for ED f/u for chest pain. Pt seen in ED on 03/20 for chest pain. Troponins neg and EKG showed bifasicular block but no change from prior. Offered admission to r/o and get stress test but pt declined. Pt had nuclear stress performed today and was completely normal. No chest pain or sob since episode. Of note: ED stated pt had pill rolling tremor upon exam. Has been having numbness of RUE for about a year and has been worked up by several neurologists and spinal workup without any obvious cause. Has stumbled a bit a couple times but no specific problems with slow gait or starting movements. c. Review of Systems: Constitutional - no [...] beer per week II. PHYSICAL EXAM: BP 112/74 (BP Location (NBP): Left arm, Patient Position: Sitting, BP Cuff Sizes: Adult (25-34 cm))Pulse 77 Temp 36.9 ??C (98.5 ??F) (Oral) Resp 14 Wt 97.3 kg (214 lb 9.6 oz) SpO2 99% BMI 29.93 kg/m2 General - No acute distress, conversing without difficulty. ENT - oropharynx without lesions. Eyes - EOMI. No scleral icterus Neck - No lymphadenopathy, supple, no masses Heart - RRR, S1,S2, no murmur, gallop or rub. Neuro - noted tremor of R hand, however, normal facial expressions, no rigidity, no bradykinesia, normal arm swing with ambulation. Extremities - No clubbing, cyanosis or edema. III. ASSESSMENT/PLAN:Ken Mckeon 70 y.o. male presenting for f/u ED visit. No sxs currently and stress test negative so unclear cause of chest pain but seems to have resolved. However, pt would benefit from statin given risks and pt would like to think about it. Pt does have tremor but no other sxs of parkinson's so does not meet diagnostic criteria at this point. Perhaps is related to nerve injury of that arm. At this point will continue to monitor. Pt to call if wishing to start statin. Discussed statin and diagnostic criteria for parkisons for 25 minutes documented in this encounter Plan of Treatment Upcoming Encounters Date Type Department Care Team (Late st Contact Info) Description 12/15/2024 11:30 AM EDT Office Visit [place] [address] Charline Ziegler MD [facility] [place] [address] documented as of this encounter Visit Diagnoses Diagnosis Chest pain, unspecified type Tremor Abnormal involuntary movements documented in this encounter Care Teams Automatic Pinsetter Mechanic Relationship Specialty Start Date End Date Reji Adams MD [facility] [place] [address] PCP - General General Internal Medicine 07/13/15 documented as of this encounter
--- OUTSIDE RECORDS SUMMARY | 2024-07-09 11:17 | XMS_ITS | Encounter Summary ---
Author Organization [facility] [place] [address] Care Team Providers Care Opticianry Teacher Name Role Phone Reji Adams MD Primary Care Provider [phone] Reason for Visit * Reason Onset Date Comments New Medication Request 11/23/2015 Encounter Details Date Type Department Care Team (Late st Contact Info) Description 11/23/2015 Telephone Internal Medicine at [address] [address] Seth Odom New Medication Request Social History Tobacco Use [...] Telephone Encounter - Amrita Rodriguez RN - 11/23/2015 2:05 PM EDT ?? Can get azithromycin 500mg x 1 30-60 minutes prior to procedure. Medication ordered per message from Dr Adams. * Telephone Encounter - Amrita Rodriguez RN - 11/23/2015 1:[address] Adams, if just having cleaning he doesn't need antibiotic. He is sure that the clinic will be doing more than cleaning but not sure about extractions etc. * Telephone Encounter - Amrita Rodriguez RN - 11/23/2015 12:51 PM EDT He has appt with dentist next week, who told him he needs an antibiotic prior to procedure. He hasn't seen a dentist since his TKR in 2007. Allergic to PCN. * Telephone Encounter - Seth Odom - 11/23/2015 12:39 PM EDT Message: Patient called to discuss with the Nurse a potential antibiotic prescription. Patient has hx of TKR and will be attending a dental clinic in [place] on 11/30. Patient's pharmacy is [facility] in [place]. Caller and relationship (if other than patient-full name): self Best time to call back: anytime Ok to leave a message: [ yes] Ok to send [facility] message: [no] documented in this encounter Plan of Treatment Upcoming Encounters Date Type Department Care Team (Late st Contact Info) Description 12/15/2024 11:30 AM EDT Office Visit [place] [address] Charline Ziegler MD [facility] [place] [address] documented as of this encounter Visit Diagnoses Not on filedocumented in this encounter Care Teams Opticianry Teacher Relationship Specialty Start Date End Date Reji Adams MD [facility] [place] [address] PCP - General General Internal Medicine 07/13/15 documented as of this encounter
--- OUTSIDE RECORDS SUMMARY | 2024-07-09 11:17 | XMS_ITS | Encounter Summary ---
[place] [address] Care Team Providers Care Dolphin Trainer Name Role Phone Reji Adams MD Primary Care Provider [phone] Reason for Referral * Diagnostic Test (Routine) - Closed Specialty Diagnoses / Procedures Referred By Contac t Referred To Contact Radiology Diagnoses Right hand pain Paresthesia Procedures IR lumbar puncture/Myelogram [id number] Bright Casanova MD [address] [place] [address] [facility] [place] [address] Referral ID Status Reason Start Date Expiration Date V isits Requested Visits Authorized [id number] Closed Specialty Service Requested 10/18/2015 10/17/2016 1 1 Reason for Visit * Diagnostic Test (Routine) - Closed Specialty Diagnoses / Procedures Referred By Contac t Referred To Contact Radiology Diagnoses Right hand pain Paresthesia Procedures IR lumbar puncture/Myelogram [id number] Bright Casanova MD [address] [place] [address] [facility] [place] [address] Referral ID Status Reason Start Date Expiration Date V isits Requested Visits Authorized [id number] Closed Specialty Service Requested 10/18/2015 10/17/2016 1 1 Encounter Details Date Type Department Care Team (Latest Contact Info) Description 11/29/2015 10:36 AM EDT - 11/29/2015 11:59 PM EDT Hospital En[place] [address] Bright Casanova MD Right hand pain; Paresthesia Discharge Disposition: Home Social History Tobacco Use [...] Sign Reading Time Taken Comments Blood Pressure 125/72 11/29/2015 2:45 PM EDT Pulse 60 11/29/2015 1:14 PM EDT Temperature 35.8 ??C (96.5 ??F) 11/29/2015 1:14 PM ED T Respiratory Rate - - Oxygen Saturation 99% 11/29/2015 2:45 PM EDT Inhaled Oxygen Concentration - - Weight - - Height - - Body Mass Index - - documented in this encounter Discharge Instructions * Discharge Instructions* Brad Negrete RN - 11/29/2015 2:33 PM EDT [facility] Myelogram Discharge Instructions A myelogram carries the risks of headache, bleeding and infection. Following these instructions will reduce these risks. 1. Go home and rest quietly for the remainder of the day. It is important to keep your head elevated until bedtime. You may resume your normal activities tomorrow. 2. You may resume your regular diet. Drink extra fluids for the next 24 hours. 3. You may have mild discomfort at the puncture site. If necessary, you may take Tylenol (one or two 325 mg tablets every 4 hours) for the first 24 hours after the procedure. 4. If you develop headache that is severe or lasts more than 2 days, call the Radiology Department at [facility] at the number below. 5. If you take anticoagulants such as Coumadin or Lovenox, consult with your primary care physicianbefore resuming their use. Call [facility] immediately if you have: ?? Chills, fever, or stiff neck ?? Worsening pain, swelling, or redness around the puncture site ?? Temperature greater than 101 degrees fahrenheit ?? Drainage or bleeding from the puncture site ?? Severe headache ?? Numbness or loss of strength any place below the puncture site You may contact the [employer] local combination truck driver at [phone] with any questions or concerns. Revised 08/11/15 documented in this encounter Medications at Time of Discharge Medication Sig Dispensed Refills Start Date End Date multivitamin (THERAGRAN) tablet Take 1 tablet by mouth daily. BORON ORAL Take 1 tablet by mouth daily. 05/01/2016 meloxicam (MOBIC) 7.5 mg Tablet Take 1 tablet by mouth daily. 30 tablet 4 10/19/2015 02/08/2016 ckqkilcb-vio-cudmhbstl -vit D3 750 mg-125 mg -600 mg Tablet Take 2 tablets by mouth daily. 05/01/2016 metroNIDAZOLE (METROCREAM) 0.75 % Cream Apply topically as needed. Reported on 09/19/2016 09/19/2016 ibuprofen (ADVIL) 200 mg tablet Take 400 mg by mouth every 6 hours as needed. 05/08/2018 ALPRAZolam (XANAX) 0.25 mg tablet Take 0.25 mg by mouth 3 times daily as needed. 03/19/2018 Saw Reva 500 mg capsule Take 500 mg by [...] 11:30 AM EDT Office Visit Gastroenterology at [place] [address] Charline Ziegler MD [facility] [place] [address] Scheduled Orders Name Type Priority Associated Diagnoses Orde r Schedule IR lumbar puncture/Myelogram [id number] Imaging Routine Right hand pain Paresthesia 1 Occurrences starting 11/29/2015 until 11/29/2015 documented as of this encounter Visit Diagnoses Diagnosis Right hand pain Pain in limb Paresthesia Disturbance of skin sensation documented in this encounter Care Teams Dolphin Trainer Relationship Specialty Start Date End Date Reji Adams MD [facility] [place] [address] PCP - General General Internal Medicine 07/13/15 documented as of this encounter
--- OUTSIDE RECORDS SUMMARY | 2024-07-09 11:17 | XMS_ITS | Encounter Summary ---
Author Organization [facility] Address [facility] [place] [address] Care Team Providers Care Intensive Care Specialist Name Role Phone Reji Adams MD Primary Care Provider [phone] Reason for Referral * Diagnostic Test (Routine) - Closed Specialty Diagnoses / Procedures Referred By Contac t Referred To Contact Radiology Diagnoses Chest pain, unspecified type Procedures NM myocardial perfusion scan, pharmacologic Reji Adams MD [facility] [place] [address] [place] [address] Referral ID Status Reason Start Date Expiration Date V isits Requested Visits Authorized [id number] Closed Specialty Service Requested 03/21/2016 03/21/2017 4 4 Reason for Visit * Diagnostic Test (Routine) - Closed Specialty Diagnoses / Procedures Referred By Contac t Referred To Contact Radiology Diagnoses Chest pain, unspecified type Procedures NM myocardial perfusion scan, pharmacologic Reji Adams MD [facility] [place] [address] [place] [address] Referral ID Status Reason Start Date Expiration Date V isits Requested Visits Authorized [id number] Closed Specialty Service Requested 03/21/2016 03/21/2017 4 4 Encounter Details Date Type Department Care Team (Latest Contact Info) Description 03/22/2016 7:24 AM EDT Hospital Encounter Nuclear Medicine at [facility] [place] [address] Reji Adams MD [facility] [place] [address] Chest pain, unspecified type Discharge Disposition: Home Social History [...] Take 1 tablet by mouth daily. 05/01/2016 sqrsoram-xvv-niyxnijdw- vit D3 750 mg-125 mg -600 mg Tablet Take 2 tablets by mouth daily. 05/01/2016 metroNIDAZOLE (METROCREAM) 0.75 % Cream Apply topically as needed. Reported on 09/19/2016 09/19/2016 ibuprofen (ADVIL) 200 mg tablet Take 400 mg by mouth every 6 hours as needed. 05/08/2018 ALPRAZolam (XANAX) 0.25 mg tablet Take 0.25 mg by mouth 3 times daily as needed. 03/19/2018 Saw [place] 500 mg capsule Take 500 mg by [...] 11:30 AM EDT [facility] [place] [address] Charline Ziegler MD [facility] [place] [address] documented as of this encounter Procedures Procedure Name Priority Date/Time Associated Diagnosis Comments CO PHARMACOLOGIC STRESS AND REST MYOCARDIAL PERFUSION Routine 03/22/2016 9:22 AM EDT Chest pain, unspecified type documented in this encounter Results * NM myocardial perfusion scan, pharmacologic (03/22/2016 9:22 AM EDT) Anatomical Region Laterality Modality Nuclear Medicine Impressions 03/22/2016 1:23 PM EDT No ischemia or scar. ??Left ventricular function is normal. Narrative 03/22/2016 1:23 PM EDT EXAMINATION: NM MYOCARDIAL PERFUSION SCAN, PHARMACOLOGIC CLINICAL HISTORY: chest pain TECHNIQUE: During rest, 7.7 mCi of technetium-99m sestamibi was administered intravenously. Approximately 20 minutes later, SPECT images of the heart were obtained with reconstruction in the short, vertical long and horizontal long axis. The patient then received regadenoson intravenously at a dose of 0.4 mg. 20 seconds later, 25.9 mCi of technetium-99m sestamibi was administered intravenously. Images of the heart were then again obtained with SPECT reconstruction. A low-dose CT scan was acquired for the purpose of attenuation correction COMPARISON: None FINDINGS: No fixed or reversible perfusion defects are present. Functional analysis: Myocardial function: There is normal wall thickening and wall motion. Left ventricular ejection fraction: 71 % (normal greater than than 50%). Procedure Note Marcelo Treadwell MD - 03/22/2016 EXAMINATION: NM MYOCARDIAL PERFUSION SCAN, PHARMACOLOGIC CLINICAL HISTORY: chest pain TECHNIQUE: During rest, 7.7 mCi of technetium-99m sestamibi wasadministered intravenously. Approximately 20 minutes later, SPECT images of the heartwere obtained with reconstruction in the short, vertical long and horizontallong axis. The patient then received regadenoson intravenously at a dose of 0.4 mg.20 seconds later, 25.9 mCi of technetium-99m sestamibi was administered intravenously. Images of the heart were then again obtained with SPECT reconstruction. A low-dose CT scan was acquired for the purpose of attenuationcorrection COMPARISON: None FINDINGS: No fixed or reversible perfusion defects are present. Functional analysis: Myocardial function: There is normal wall thickening and wall motion. Left ventricular ejection fraction: 71 % (normal greater than than 50%). IMPRESSION No ischemia or scar. Left ventricular function is normal. Reji Adams MD [facility] [place] ORDERABLES documented in this encounter Visit Diagnoses Diagnosis Chest pain, unspecified type documented in this encounter Care Teams Intensive Care Specialist Relationship Specialty Start Date End Date Reji Adams MD [facility] [place] [address] PCP - General General Internal Medicine 07/13/15 documented as of this encounter
--- OUTSIDE RECORDS SUMMARY | 2024-07-09 11:17 | XMS_ITS | Encounter Summary ---
Author Organization [facility] [place] [address] Care Team Providers Care Pharmacy Account Director Name Role Phone Reji Adams MD Primary Care Provider [phone] Reason for Referral * Diagnostic Test (Routine) - Closed Specialty Diagnoses / Procedures Referred By Contac t Referred To Contact Radiology Diagnoses Chest pain, unspecified type Procedures NM myocardial perfusion scan, pharmacologic Reji Adams MD [facility] [place] [address] [place] [address] Referral ID Status Reason Start Date Expiration Date V isits Requested Visits Authorized [id number] Closed Specialty Service Requested 03/21/2016 03/21/2017 4 4 Encounter Details Date Type Department Care Team (Late st Contact Info) Description 03/21/2016 Orders [place] [address] Reji Adams MD [facility] [address] Chest pain, unspecified type Social History Tobacco Use Types [...] 11:30 AM EDT Office Visit Gastroenterology at [facility] [place] [address] Charline Ziegler MD [facility] [place] [address] documented as of this encounter Results * NM myocardial perfusion [...] ventricular function is normal. Reji Adams MD [facility] ORDERABLES * Nuclear Pharmacologic Stress Cardiology (03/22/2016 8:52 AM EDT) Anatomical Region Laterality Modality Other Reji Adams MD [facility] ORD ERABLES documented in this encounter Visit Diagnoses Diagnosis Chest pain, unspecified type Chest pain, unspecified type documented in this encounter Care Teams Pharmacy Account Director Relationship Specialty Start Date End Date Reji Adams MD [facility] [address] PCP - General General Internal Medicine 07/13/15 documented as of this encounter
--- OUTSIDE RECORDS SUMMARY | 2024-07-09 11:17 | XMS_ITS | Encounter Summary ---
Author Organization [facility] [place] [address] Care Team Providers Care Die Designer Name Role Phone Reji Adams MD Primary Care Provider [phone] Reason for Visit * Diagnostic Test (Routine) - Closed Specialty Diagnoses / Procedures Referred By Contac t Referred To Contact Radiology Diagnoses Chest pain, unspecified type Procedures NM myocardial perfusion scan, pharmacologic Reji Adams MD [facility] [place] [address] [place] [address] Referral ID Status Reason Start Date Expiration Date V isits Requested Visits Authorized [id number] Closed Specialty Service Requested 03/21/2016 03/21/2017 4 4 Encounter Details Date Type Department Care Team (Latest Contact Info) Description 03/22/2016 7:25 AM EDT Hospital Encounter [place] [address] Reji Adams MD [facility] [place] [address] Discharge Disposition: Home Social History [...] Take 1 tablet by mouth daily. 05/01/2016 pnqkzcxg-iob-gstsbghxh- vit D3 750 mg-125 mg -600 mg Tablet Take 2 tablets by mouth daily. 05/01/2016 metroNIDAZOLE (METROCREAM) 0.75 % Cream Apply topically as needed. Reported on 09/19/2016 09/19/2016 ibuprofen (ADVIL) 200 mg tablet Take 400 mg by mouth every 6 hours as needed. 05/08/2018 ALPRAZolam (XANAX) 0.25 mg tablet Take 0.25 mg by mouth 3 times daily as needed. 03/19/2018 Saw [place] 500 mg capsule Take 500 mg by [...] 11:30 AM EDT Office [place] [address] Charline Ziegler MD [facility] [place] [address] documented as of this encounter Procedures Procedure Name Priority Date/Time Associated Diagnosis Comments NM PHARMACOLOGIC STRESS AND REST MYOCARDIAL PERFUSION Routine 03/22/2016 9:22 AM EDT Chest pain, unspecified type documented in this encounter Visit Diagnoses Not on filedocumented in this encounter Administered Medications Inactive Administered Medications - up to 3 most recent administrations Medication Order MAR Action Action Date Dose Rate Site regadenoson (LEXISCAN) injection 0.4 mg 0.4 mg, Intravenous, ONCE, 1 dose, On Fri03/22/16 at 0900, Routine Given 03/22/2016 8:37 AM EDT 0.4 mg technetium (Tc-99m) sestamibi injection 25.9 mCi 25.9 mCi, Intravenous, ONCE PRN, 1 dose, Starting on Fri03/22/16 at 0835, Until Fri03/22/16 at 0835, Per Protocol, Routine Given 03/22/2016 8:35 AM EDT 25.9 mCi documented in this encounter Care Teams Die Designer Relationship Specialty Start Date End Date Reji Adams MD [facility] [place] [address] PCP - General General Internal Medicine 07/13/15 documented as of this encounter
--- OUTSIDE RECORDS SUMMARY | 2024-07-09 11:17 | XMS_ITS | Encounter Summary ---
Author Organization [facility] [place] [address] Care Team Providers Care End Polisher Name Role Phone Reji Adams MD Primary Care Provider [phone] Reason for Referral * Consultation (Routine) - Closed Specialty Diagnoses / Procedures Referred By Duglas arizmendi Referred To Contact Rheumatology Diagnoses Osteoarthritis, unspecified osteoarthritis type, unspecified site Reji Adams MD [facility] [place] [address] [facility] [address] [place] [phone] Referral ID Status Reason Start Date Expiration Date V isits Requested Visits Authorized [id number] Closed Specialty Service Requested 09/28/2015 09/27/2016 1 1 Encounter Details Date Type Department Care Team (Late st Contact Info) Description 09/28/2015 Orders [place] [address] Reji Adams MD [facility] [place] [address] Osteoarthritis, unspecified osteoarthritis type, unspecified site Social History Tobacco Use Types [...] 11:30 AM EDT Office Visit [place] [address] Charline Ziegler MD [facility] [place] [address] Scheduled Referrals Name Type Priority Associated Diagnoses Orde r Schedule Referral to Rheumatology Outpatient Referral Routine Osteoarthritis, unspecified osteoarthritis type, unspecified site Ordered: 09/28/2015 documented as of this encounter Visit Diagnoses Diagnosis Osteoarthritis, unspecified osteoarthritis type, unspecified site documented in this encounter Care Teams End Polisher Relationship Specialty Start Date End Date Reji Adams MD [facility] [place] [address] PCP - General General Internal Medicine 07/13/15 documented as of this encounter
--- OUTSIDE RECORDS SUMMARY | 2024-07-09 11:17 | XMS_ITS | Encounter Summary ---
Author Organization [facility] Address [facility] [place] [address] Care Team Providers Care Continuous Improvement Facilitator Name Role Phone Reji Adams MD Primary Care Provider [phone] Encounter Details Date Type Department Care Team (Late st Contact Info) Description 10/12/2015 [place] [id number] Herb Waller MD [facility] [place] [address] HX: anticoagulation Social History Tobacco Use Types [...] as of this encounter Progress Notes * Herb Waller MD - 10/12/2015 2:[address] cervical myelogram approved by Dr. Myrick. Pineda Waller * Herb Waller MD - 10/12/2015 2:45 PM EDT Images from the original note were not included. Neuroradiology Pre-Procedure Note Date of :1945 Age: 70 y.o. PCP: REJI ADAMS MD Referring Physician: Dr. Salvador Planned Procedure: CT Cervical myelogram and lumbar puncture Chief Complaint/Indication: Patient is a 70 y.o. male with a PMH significant for prior C3-C5 anterior fusion and decompression who has persistent paraesthesias and right hand pain. No contraindication to MRI, however symptoms persist despite improved MRI appearance. Request for CT lumbar myelogram for clarity of state of cervical spine given persistent symptoms. Past Medical/Surgical History: Patient Active Problem List [...] pain M79.641 ??? Right arm numbness R20.2 Past Medical History Diagnosis Date ??? BPH (benign prostatic hyperplasia) ??? OA (osteoarthritis) of knee right ??? Neck pain 08/24/2012 Past Surgical History Procedure Laterality Date ??? Created by interface Past surg hx. Procedure Date: 09/19/2010 ??? Pro ligate/strip long saph vein belw sep-fem junc 06/02/2012 LIGATION\DIV\STRIP GREATER SAPHENOUS VEIN performed by BEATRICE RODRÍGUEZ at [facility] MA[facility] OR ??? Pro phleb veins - extrem - to 20 06/02/2012 STAB PHLEBECTOMY KARLI VEINS, EXTREMITY 10-20 INCISIONS-SANTI performed by BEATRICE RODRÍGUEZ at [facility] OR ??? Pro colonoscopy, diagnostic 09/07/2013 COLONOSCOPY, DIAGNOSTIC performed by Ximena Gu MD at [facility] ENDOSCOPY Medications: Current Outpatient Prescriptions on File Prior to Visit Medication Sig Dispense Refill ??? zeseouna-jis-rejyjyvmz-vit D3 750 mg-125 mg -600 mg Tablet [...] 1 tablet by mouth daily. ??? Saw [place] 500 mg capsule Take 500 mg by mouth daily. ??? Mavis Extract 500 mg Cap Take 1 capsule by mouth daily. ??? naproxen sodium (ALEVE) 220 mg tablet Take 220 mg by mouth as needed. No current facility-administered medications on file prior to visit. Allergies: Penicillins Social History: non-contributory Family History: Family History Problem Relation Age of Onset ??? Cancer Mother bone ??? Diabetes Father ??? Cancer Father testicular Pertinent ROS: as per HPI Labs: Lab Results Component Value Date WBC 5.3 06/01/2015 HCT 46.1 06/01/2015 PLATELET 185 06/01/2015 BUN 17 06/01/2015 Lab Results Component Value Date ALKPHOS 60 06/01/2015 AST 22 06/01/2015 ALBUMIN 4.3 06/01/2015 BILIDIR 0.1 06/01/2015 BILITOT 0.8 06/01/2015 ALT 16 06/01/2015 Prior Imagin07/13/15 Physical Exam: Pending ASA / Mallampati Class: Pending Assessment: Patient is a 70 y.o. male with a PMH significant for prior C3-C5 anterior fusion and decompression who has persistent paraesthesias and right hand pain. No contraindication to MRI, however symptoms persist despite improved MRI appearance. Request for CT lumbar myelogram for clarity of state of cervical spine given persistent symptoms. Plan: CT Cervical myelogram, lumbar puncture Medications to discontinue: none Prophylactic antibiotic: none Planned access site / position: prone Labs: coag panel and platelets ordered Anesthesia: local documented in this encounter Plan of Treatment Upcoming Encounters Date Type Department Care Team (Late st Contact Info) Description 12/15/2024 11:30 AM EDT Office [place] [address] Charline Ziegler MD [facility] [place] [address] documented as of this encounter Results * Platelet count (11/22/2015 1:34 PM EDT) Pathologist [facility] Platelet 175 145 - 370 x10(3)/mcL [facility] Blood specimen (specimen) 11/22/2015 1:34 PM EDT 11/22/2015 1:38 PM EDT Narrative Resulting Agency Comment Spec In Lab Logan Myrick MD HEMATOLOGY ORDERABLE S Performing Organization Address [facility]/ZIP Co de Phone Number [facility] [place] [address] * APTT (11/22/2015 1:34 PM EDT) [facility] Partial Thromboplastin Time 32 25 - 35 sec [facility] Comment: The recommended therapeutic range for full dose, unfractionated heparin at [facility] is 80 ? 114 seconds. The use of the anti-Xa (heparin) level rather than the PTT is recommended for monitoring anticoagulation intensity in critically ill patients receiving unfractionated heparin by continuous IV infusion. Blood specimen (specimen) 11/22/2015 1:34 PM EDT 11/22/2015 1:38 PM EDT Narrative Resulting Agency Comment Spec In Lab Logan Myrick MD HEMATOLOGY ORDERABLE S Performing Organization Address City/[facility]/ZIP Co de Phone Number [facility] [place] [address] * Prothrombin Time (11/22/2015 1:34 PM EDT) Prothrombin Time 14.4 12.0 - 15.0 sec [facility] Comment: An INR <2.0 [...] International Normalization Ratio 1.1 0.9 - 1.1 [facility] Blood specimen (specimen) 11/22/2015 1:34 PM EDT 11/22/2015 1:38 PM EDT Narrative Resulting Agency Comment Spec In Lab Logan Myrick MD HEMATOLOGY ORDERABLE S [facility] [place] [address] documented in this encounter Visit Diagnoses Diagnosis HX: anticoagulation Encounter for long-term (current) use of anticoagulants documented in this encounter Care Teams Continuous Improvement Facilitator Relationship Specialty Start Date End Date Reji Adams MD [facility] [place] [address] PCP - General General Internal Medicine 07/13/15 documented as of this encounter
--- OUTSIDE RECORDS SUMMARY | 2024-07-09 11:17 | XMS_ITS | Encounter Summary ---
Author Organization [facility] [place] [address] Care Team Providers Care Associate Automation Engineer Name Role Phone Reji Newberry MD Primary Care Provider [phone] Reason for Referral * Consultation (Routine) - Closed Specialty Diagnoses / Procedures Referred By Duglas arizmendi Referred To Contact Otolaryngology Diagnoses Hearing loss, unspecified laterality Qian Power RAIL TRANSPORTATION OPERATOR [facility] [place] [address] [facility] Otolaryngology [address] [place] [phone] Referral ID Status Reason Start Date Expiration Date V isits Requested Visits Authorized [id number] Closed Consult, Test & Treat 02/08/2016 02/07/2017 1 1 Reason for Visit * Reason Comments Otalgia Left ear; fatigue. Encounter Details Date Type Department Care Team (Late st Contact Info) Description 02/08/2016 2:00 PM EDT Office Visit Internal Medicine at [address] [address] Qian Power [facility] [place] [address] Hearing loss, unspecified laterality (Primary Dx); Urinary frequency; Fatigue, unspecified type; Screening cholesterol level; Elevated cholesterol Social History Tobacco Use Types [...] Sign Reading Time Taken Comments Blood Pressure 111/69 02/08/2016 1:46 PM EDT Pulse 72 02/08/2016 1:46 PM EDT Temperature 37 ??C (98.6 ??F) 02/08/2016 1:46 PM EDT Respiratory Rate 14 02/08/2016 1:46 PM EDT Oxygen Saturation 98% 02/08/2016 1:46 PM EDT Inhaled Oxygen Concentration - - Weight 100.7 kg (222 lb) 02/08/2016 1:46 PM EDT with shoes on Height - - Body Mass Index 31.85 11/06/2015 1:09 PM EDT documented in this encounter Progress Notes * Qian Power, MARYBEL - 02/08/2016 2:00 PM EDT PCP: REJI NEWBERRY MD Chief Complaint Patient presents with ??? Otalgia Left ear; fatigue. SUBJECTIVE: Ken Mckeon is a 70 y.o. male who presents for left ear pain. He has intermittent pain in the back of the ear. He feels it intermittently. - he has some allergies and sinus congestion - fatigue; small frequent urination - he has chronic tinnitus, that is worse with NSAIDs, this is not new since he has had the ear pain. Review of Systems Constitutional: Negative for chills and fever. HENT: Negative for sore throat. Respiratory: Negative for cough, shortness of breath and wheezing. Cardiovascular: Negative for chest pain and palpitations. Allergies Allergen Reactions ??? Penicillins Tongue swelling Current Outpatient Prescriptions Medication Sig Dispense Refill ??? ciprofloxacin (CIPRO) 250 mg Tablet Take 1 tablet by mouth 2 times daily. 28 tablet 0 ??? BORON ORAL Take 1 tablet by mouth daily. ??? kgetrdxx-xwc-ykxiehjqp-vit D3 750 mg-125 mg -600 mg Tablet [...] 1 tablet by mouth daily. ??? Saw [place] 500 mg capsule Take 500 mg by [...] Shoulder pain, bilateral M25.511, M25.512 OBJECTIVE: Vitals: 02/08/16 1346 BP: 111/69 BP Location (NBP): Left arm Patient Position: Sitting BP Cuff Sizes: Large Adult (32-43 cm) Pulse: 72 Resp: 14 Temp: 37 ??C (98.6 ??F) TempSrc: Oral SpO2: 98% Weight: 100.7 kg (222 lb) PHYSICAL EXAM: Physical Exam Constitutional: He appears well-developed and well-nourished. No distress. HENT: Head: Normocephalic and atraumatic. Right Ear: Tympanic membrane, external ear and ear canal normal. Left Ear: External ear and ear canal normal. Tympanic membrane is not injected and not erythematous. A middle ear effusion is present. Decreased hearing is noted. ASSESSMENT & PLAN: Ken was seen today for otalgia. Diagnoses and all orders for this visit: Hearing loss, unspecified laterality - Referral to ENT Left Ear pain - likely eustachian tube dysfunction, discussed symptomatic treatment. Pt has had hearing loss prior will refer to ENT for further evaluation Urinary frequency - POCT urine dipstick - Urine culture Clean Catch Urine - ciprofloxacin (CIPRO) 250 mg Tablet; Take 1 tablet by mouth 2 times daily for 42 days. - history of prostatitis. Urine with some leuks will treat with course of cipro Fatigue, unspecified type - Urine culture Clean Catch Urine Elevated cholesterol - Lipid panel (fasting); Future documented in this encounter Plan of Treatment Upcoming Encounters Date Type Department Care Team (Late st Contact Info) Description 12/15/2024 11:30 AM EDT Office Visit [place] [address] Charline Ziegler MD [facility] [place] [address] Scheduled Referrals Name Type Priority Associated Diagnoses Orde r Schedule Referral to ENT Outpatient Referral Routine Hearing loss, unspecified laterality Ordered: 02/08/2016 documented as of this encounter Procedures Procedure Name Priority Date/Time Associated Diagnosis Comments URINE CULTURE Routine 02/08/2016 3:50 PM EDT Urinary frequency Fatigue, unspecified type POCT URINE DIPSTICK Routine 02/08/2016 2 :30 PM EDT Urinary frequency documented in this encounter Results * (ABNORMAL) Lipid panel (fasting) (03/14/2016 9:50 AM EDT) Cholesterol, Total 183 <=199 mg/dL [facility] Comment: Recommendations of the NCEP Adult Treatment Panel for the following risk cutoff thresholds for the [place] population: Desirable: <200 mg/dL Borderline High: 200-239 mg/dL High: > or = 240 mg/dL Triglyceride 81 <=149 mg/dL [facility] Comment: Reference Range: Normal triglycerides: ??<150 mg/dL Borderline high: ??150-199 mg/dL High: ??200-499 mg/dL Very high: ??>gf=862 mg/dL MARKEL 2001; 285(19):2261-9050 HDL Cholesterol 63 >=40 mg/dL [facility] Comment: Reference range: ??Low HDL: ?? < 40 mg/dL ??Normal: ?40-60 mg/dL ??Desirable: > 60 mg/dL MARKEL 2001; 285(19):1036-5619 LDL Cholesterol 104(H) <=99 mg/dL [facility] Comment: Reference range: ?? Optimal: ?<100 mg/dL ?? Near Optimal/Above Optimal: ?? 100-129 mg/dL ?? Borderline high: ?130-159 mg/dL ?? High: ? 160-189 mg/dL ?? Very high: ?>tc=321 mg/dL MARKEL 2001: 285(19):9531-1650 Cholesterol/HDL Ratio 2.9 ratio [facility] Comment: A Cholesterol to HDL ratio below 4:1 is desirable. ??Studies suggest that increased CAD risk occurs at ratios above 5 for females and above 6 for men. ? [place] Heart Association ??(http://www.americanheart.org) ? [place] Int Med, 1994; 121:641 ? AM J Med, 1998; 105(1A):48S Blood specimen (specimen) 03/14/2016 9:50 AM EDT 03/14/2016 10:02 AM EDT Narrative Resulting Agency Comment Spec In Lab Reji Newberry MD CHEMISTRY ORDERABLES Performing Organization Address [facility] Co de Phone Number [facility] [place] [address] * Urine culture Clean Catch Urine (02/08/2016 3:50 PM EDT) Urine Culture No growth (Less than 1,000 cfu/ml). [facility] Urine specimen obtained by clean catch procedure (specimen) 02/08/2016 3:50 PM EDT 02/08/2016 6:12 PM EDT Narrative Resulting Agency Comment Spec In Lab Reji Newberry MD MICROBIOLOGY - GENER AL ORDERABLES Performing Organization Address [facility] Co de Phone Number [facility] [place] [address] * (ABNORMAL) POCT urine dipstick (02/08/2016 2:30 PM EDT) POC Sp Acme 1.010 1.002 - 1.030 POC pH, UA 8 5.0 - 8.5 POC Leuk, UA trace Negative - Negative POC Nitrite, UA neg Negative - Negative POC Protein, UA neg Negative - Negative mg/dL POC Glucose, UA norm Normal - Normal mg/dL POC Ketone, UA neg Negative - Negative POC Urobil, UA norm 0.2 - 1.0 mg/dL POC Bili, UA neg Negative - Negative POC Blood, UA neg Negative - Negative denise/uL Urine specimen (specimen) 02/08/2016 2:30 PM EDT Reji Newberry MD POINT OF CARE TEST O RDERABLES documented in this encounter Visit Diagnoses Diagnosis Hearing loss, unspecified laterality- Primary Urinary frequency Fatigue, unspecified type Screening cholesterol level Screening for lipoid disorders Elevated cholesterol Pure hypercholesterolemia documented in this encounter Care Teams Associate Automation Engineer Relationship Specialty Start Date End Date Reji Newberry MD [facility] GENERAL [place] [address] PCP - General General Internal Medicine 07/13/15 documented as of this encounter
--- OUTSIDE RECORDS SUMMARY | 2024-07-09 11:17 | XMS_ITS | Encounter Summary ---
Author Organization [facility] [place] [address] Care Team Providers Care Gang Investigator Name Role Phone Reji Newberry MD Primary Care Provider [phone] Reason for Visit * Reason Comments Fatigue for a week, weak in the legs,does not feel right. lightheaded at times Other did get a flu shot l ast week, ?? why he feels bad, also taking bety Encounter Details Date Type Department Care Team (Late st Contact Info) Description 05/07/2016 2:20 PM EDT Office Visit Internal Medicine at [facility] [address] [place] [address] Mary Lazaro PA [address] [facility] [place] [address] Fatigue, unspecified type Social History Tobacco Use [...] Sign Reading Time Taken Comments Blood Pressure 115/66 05/07/2016 2:29 PM EDT Pulse 78 05/07/2016 2:29 PM EDT Temperature 36.6 ??C (97.9 ??F) 05/07/2016 2 :29 PM EDT Respiratory Rate - - Oxygen Saturation 99% 05/07/2016 2:2 9 PM EDT Inhaled Oxygen Concentration - - Weight 102 kg (224 lb 12.8 oz) 05/07/2016 2:29 PM EDT with shoes on Height 180.3 cm (5' 11) 05/07/2016 2:2 9 PM EDT reported Body Mass Index 31.35 05/07/2016 2:29 PM EDT documented in this encounter Progress Notes * Mary Lazaro PA - 05/07/2016 2:20 PM EDT PCP: REJI NEWBERRY MD Chief Complaint Patient presents with ??? Fatigue for a week, weak in the legs,does not feel right. lightheaded at times ??? Other did get a flu shot last week, ?? why he feels bad, also taking bety SUBJECTIVE: Ken Mckeon is a 70 y.o. male who presents for fatigue x 3-4 days, worse today. He reports that he has had a difficult few weeks and that during this time of increased stress he has also been seenfor shortness of breath and chest pain and has recently had a cardiac stress test. He reports that all of his tests have come back negative for worrisome findings. He reports that the only medicationthat he is taking that was not on his medication list was Bety, which he recently started takingfor allergies. He complains of dry mouth and mucus membranes. He reports that sleep is difficult for him and that he is having difficulty falling asleep and not getting a full nights sleep. Review of Systems Constitutional: Positive for fatigue. Negative for chills and fever. HENT: Negative for congestion. Eyes: Positive for visual disturbance. Respiratory: Positive for shortness of breath. Negative for cough and chest tightness. Cardiovascular: Negative for chest pain (stress test a few weeks ago). Gastrointestinal: Positive for constipation. Negative for diarrhea, nausea and vomiting. Genitourinary: Positive for frequency. Musculoskeletal: Negative for arthralgias and myalgias. Neurological: Positive for dizziness, weakness and light-headedness. Negative for headaches. Psychiatric/Behavioral: Positive for agitation. Allergies Allergen Reactions ??? Penicillins Tongue swelling [...] 1 tablet by mouth daily. ??? Saw [place] 500 mg capsule Take 500 mg by [...] Shoulder pain, bilateral M25.511, M25.512 OBJECTIVE: Vitals: 05/07/16 1429 BP: 115/66 BP Location (NBP): Left arm Patient Position: Sitting BP Cuff Sizes: Adult (25-34 cm) Pulse: 78 Temp: 36.6 ??C (97.9 ??F) TempSrc: Oral SpO2: 99% Weight: (!) 102 kg (224 lb 12.8 oz) Height: 180.3 cm (5' 11) PHYSICAL EXAM: Physical Exam Constitutional: He is oriented to person, place, and time. He appears well- developed and well-nourished. No distress. HENT: Head: Normocephalic and atraumatic. Right Ear: External ear normal. Left Ear: External ear normal. Eyes: Conjunctivae and EOM are normal. No scleral icterus. Neck: Normal range of motion. Cardiovascular: Normal rate, regular rhythm, normal heart sounds and intact distal pulses. Exam reveals no gallop and no friction rub. No murmur heard. Pulmonary/Chest: Effort normal and breath sounds normal. No respiratory distress. He has no wheezes. He has no rales. Musculoskeletal: Normal range of motion. He exhibits no edema. Lymphadenopathy: He has no cervical adenopathy. Neurological: He is alert and oriented to person, place, and time. Skin: Skin is warm and dry. Psychiatric: Pt appears highly anxious. He has continuous leg bouncing and hand fidgeting. ASSESSMENT & PLAN: Ken was seen today for fatigue and other. Diagnoses and all orders for this visit: Fatigue, unspecified type - POCT urine dipstick Ken was seen today for fatigue x 3-4 days. He presents as severely anxious with persistent leg bouncing and finger tapping on his knees. Dry mouth- pt is reassured that this is likely due to his taking Bety and that he should drink plenty of fluids to offset the unpleasant side effect of dry mouth. He is also encouraged to considernasal saline or a neti pot for his dry/stikcy mucus membranes. Pt is not certain that he will attempt this. Pt reports that he is reassured. He reviews all of the medical tests that he has had lately and repeats that they were all normal. He reports that he will return to the clinic if his symptoms persistor worsen. Future Appointments Date Time Provider Department Center 05/16/2016 8:00 AM Tomas Oliveros MD [facility] 09/23/2016 11:00 AM [facility] DX ROOM [facility] MATT Fraser documented in this encounter Plan of Treatment Upcoming Encounters Date Type Department Care Team (Late st Contact Info) Description 12/15/2024 11:30 AM EDT Office [place] [address] Charline Ziegler MD [facility] [place] [address] documented as of this encounter Procedures Procedure Name Priority Date/Time Associated Diagnosis Comments URINALYSIS WITH REFLEX CULTURE Routine 05/07/2016 3:13 PM EDT Fatigue, unspecified type POCT URINE DIPSTICK Routine 05/07/2016 2 :58 PM EDT Fatigue, unspecified type documented in this encounter Results * (ABNORMAL) Urinalysis with reflex Culture (05/07/2016 3:13 PM EDT) Glucose, Urine Dipstick Negative Negative [...] [facility] pH, Urn (dipstick) 7.0 5.0 - 8.0 [facility] Blood, Urine Dipstick Negative Negative mg/dL [facility] Ketone, Urine Dipstick Negative Negative mg/dL [facility] Nitrite, Urine Dipstick Negative Negative [facility] Leukocytes, Urine Dipstick Negative Negative [facility] Appearance, Urine Dipstick Cloudy(A) Clear [facility] Specific [place] Urine Automated 1.012 1.002 - 1.030 [facility] Color, Urine Dipstick Lauren Yellow [facility] RBC, Urine 1 0 - 3 /HPF [facility] WBC, Urine <1 0 - 3 /HPF [facility] Reflex to Culture No [facility] Urine specimen obtained by clean catch procedure (specimen) 05/07/2016 3:13 PM EDT 05/07/2016 6:25 PM EDT Narrative Resulting Agency Comment Spec In Lab Amrita Lozano MD URINE ORDERABLES [facility] [place] [address] * POCT urine dipstick (05/07/2016 2:58 PM EDT) POC Sp [place] 1.010 1.002 - 1.030 POC pH, UA 7 5.0 - 8.5 POC Leuk, UA negative Negative - Negative POC Nitrite, UA negative Negative - Negative POC Protein, UA negative Negative - Negative mg/dL POC Glucose, UA normal Normal - Normal mg/dL POC Ketone, UA negative Negative - Negative POC Urobil, UA normal 0.2 - 1.0 mg/dL POC Bili, UA negative Negative - Negative POC Blood, UA trace Negative - Negative denise/uL 05/07/2016 2:58 PM EDT Amrita Lozano MD POINT OF CARE SACHA T ORDERABLES documented in this encounter Visit Diagnoses Diagnosis Fatigue, unspecified type documented in this encounter Care Teams Gang Investigator Relationship Specialty Start Date End Date Reji Newberry MD [facility] [place] [address] PCP - General General Internal Medicine 07/13/15 documented as of this encounter
--- OUTSIDE RECORDS SUMMARY | 2024-07-09 11:17 | XMS_ITS | Encounter Summary ---
[place] [address] Care Team Providers Care Animal Assisted Therapist Name Role Phone Reji Adams MD Primary Care Provider [phone] Encounter Details Date Type Department Care Team (Late st Contact Info) Description 10/02/2015 [place]phone [place] [phone] Annemarie Ferrara, RN Social History Tobacco Use Types Packs/Day [...] encounter Miscellaneous Notes * Telephone Encounter - Tyrese Waller MD - 10/03/2015 12:41 PM EST Correct. I am not going to order a test before I see him. Shoulder x-rays are often over-utilized. He may need one, but I wouldn't want to order it without first deciding that was needed. * Telephone Encounter - Annemarie Ferrara RN - 10/02/2015 4:35 PM EST RTC to Ken and he would like to have an xray of his shoulder prior to coming for visit with on 10/19/15. I advised that generally if he has not been seen by Dr. Waller before that it is unlikely he will order Xray pre-visit, but I will ask. Ken states he has multiple issues going on, and his shoulder is just a piece of it. He would like to know if he could get in sooner. I offered the cancellation list. Message to Dr. Waller. * Telephone Encounter - Annemarie Ferrara RN - 10/02/2015 4:05 PM EST Ken calls today and asks to have shoulder xray done prior to appointment with Dr. Waller. RTC to Ken an asked him to call back. documented in this encounter Plan of Treatment Upcoming Encounters Date Type Department Care Team (Late st Contact Info) Description 12/15/2024 11:30 AM EDT Office [place] [address] Charline Ziegler MD [facility] [place] [address] documented as of this encounter Visit Diagnoses Not on filedocumented in this encounter Care Teams Animal Assisted Therapist Relationship Specialty Start Date End Date Reji Adams MD [facility] GENERAL [place] [address] PCP - General General Internal Medicine 07/13/15 documented as of this encounter
--- OUTSIDE RECORDS SUMMARY | 2024-07-09 11:17 | XMS_ITS | Encounter Summary ---
Author Organization [facility] [place] [address] Care Team Providers Care Manager Database Name Role Phone Reji Adams MD Primary Care Provider [phone] Reason for Visit * Diagnostic Test (Routine) - Closed Specialty Diagnoses / Procedures Referred By Contac t Referred To Contact Radiology Diagnoses Chest pain, unspecified type Procedures NM myocardial perfusion scan, pharmacologic Reji Adams MD [facility] GENERAL [place] [address] [place] [address] Referral ID Status Reason Start Date Expiration Date V isits Requested Visits Authorized [id number] Closed Specialty Service Requested 03/21/2016 03/21/2017 4 4 Encounter Details Date Type Department Care Team (Latest Contact Info) Description 03/22/2016 7:26 AM EDT - 03/22/2016 8:11 AM EDT Hospital Encounter [place] [address] Reji Adams MD [facility] GENERAL [place] [address] Discharge Disposition: Home Social History [...] Take 1 tablet by mouth daily. 05/01/2016 zxhqvath-imn-yientfbst- vit D3 750 mg-125 mg -600 mg Tablet Take 2 tablets by mouth daily. 05/01/2016 metroNIDAZOLE (METROCREAM) 0.75 % Cream Apply topically as needed. Reported on 09/19/2016 09/19/2016 ibuprofen (ADVIL) 200 mg tablet Take 400 mg by mouth every 6 hours as needed. 05/08/2018 ALPRAZolam (XANAX) 0.25 mg tablet Take 0.25 mg by mouth 3 times daily as needed. 03/19/2018 Saw [place] 500 mg capsule Take 500 mg by [...] 11:30 AM EDT Office [place] [address] Charline Ziegler MD [facility] [place] [address] documented as of this encounter Procedures Procedure [...] scar. Left ventricular function is normal. Reji HUNG NM ORDERABLES documented in this encounter Visit Diagnoses Not on filedocumented in this encounter Care Teams Manager Database Relationship Specialty Start Date End Date Reji Adams MD [facility] GENERAL [place] [address] PCP - General General Internal Medicine 07/13/15 documented as of this encounter
--- OUTSIDE RECORDS SUMMARY | 2024-07-09 11:17 | XMS_ITS | Encounter Summary ---
Author Organization [facility] [place] [address] Care Team Providers Care Director Of Group Counseling Program Name Role Phone Reji Adams MD Primary Care Provider [phone] Reason for Visit * Diagnostic Test (Routine) - Closed Specialty Diagnoses / Procedures Referred By Duglas arizmendi Referred To Contact Radiology Diagnoses Right hand pain Paresthesia Procedures CT Cervical Spine Myelogram Bright Casanova MD [address] [place] [address] [facility] [place] [address] Referral ID Status Reason Start Date Expiration Date V isits Requested Visits Authorized [id number] Closed Specialty Service Requested 10/18/2015 10/17/2016 1 1 Encounter Details Date Type Department Care Team (Latest Contact Info) Description 11/29/2015 10:36 AM EDT - 11/29/2015 11:59 PM EDT Hospital [place] [address] Bright Casanova MD Discharge Disposition: Home Social [...] mouth daily. 30 tablet 4 10/19/2015 02/08/2016 dtdqqgzg-xdo-kpsjntwwo -vit D3 750 mg-125 mg -600 mg Tablet Take 2 tablets by mouth daily. 05/01/2016 metroNIDAZOLE (METROCREAM) 0.75 % Cream Apply topically as needed. Reported on 09/19/2016 09/19/2016 ibuprofen (ADVIL) 200 mg tablet Take 400 mg by mouth every 6 hours as needed. 05/08/2018 ALPRAZolam (XANAX) 0.25 mg tablet Take 0.25 mg by mouth 3 times daily as needed. 03/19/2018 Saw [place] 500 mg capsule Take 500 mg by [...] 11:30 AM EDT Office [place] [address] Charline Ziegler MD [facility] [place] [address] documented as of this encounter Procedures Procedure Name Priority Date/Time Associated Diagnosis Comments CT MYELOGRAM CERVICAL SPINE Routine 11/29/2015 1:11 PM EDT Right hand pain Paresthesia documented in this encounter Results * CT Cervical Spine Myelogram (11/29/2015 1:11 PM EDT) Anatomical Region Laterality Modality C-spine Computed Tomogra phy Impressions 11/29/2015 3:24 PM EDT IMPRESSION: Patient status post C3-C5 ACDF with osseous bridging. Advanced changes of cervical spondylosis with advanced degrees of neural foraminal narrowing at several levels. I have personally reviewed the image(s) and the residents interpretation and agree with the findings, TORREY MAGANA at 11/29/2015 3:24 PM Narrative 11/29/2015 3:24 PM EDT EXAMINATION: CT CERVICAL SPINE MYELOGRAM CLINICAL HISTORY: r hand pain, paresthesis s/p cervical spinal fusion TECHNIQUE: Serial axial CT cervical spine images were obtained after the administration of intrathecal Omnipaque 300 contrast material. Coronal and sagittal reconstructions were separately performed. COMPARISON: Cervical spine MRI exams from 07/13/2015, 01/30/2015 FINDINGS: Patient is status post C3-C5 ACDF. There is osseous fusion across the disc spaces at the fused levels. There is a few millimeters of anterolisthesis of C5 on C6. Degenerative changes with intervertebral disc space narrowing, anterior osteophyte formation, uncovertebral and facet joint hypertrophic changes are present within the lower cervical spine. C2-C3: No disc herniation or central canal narrowing. Uncovertebral joint hypertrophic changes with mild to moderate right neuroforaminal narrowing. The left neural foramen is patent. C3-C4: Advanced uncovertebral and asymmetric facet hypertrophic changes, with severe left and moderate right neural foraminal narrowing. Mild canal narrowing because of a posterior disc osteophyte complex. C4-C5: ??Uncovertebral and facet hypertrophic changes with moderate bilateral neural foraminal narrowing. Mild canal narrowing because of a posterior disc osteophyte complex. C5-C6: Mild anterolisthesis without disc herniation or central canal narrowing. Uncovertebral and asymmetric left facet joint hypertrophic changes with moderate bilateral neural foraminal narrowing. C6-C7: No disc herniation or central canal narrowing. Uncovertebral and facet joint hypertrophic changes with severe bilateral neuroforaminal narrowing. C7-T1: No disc herniation or central canal narrowing. Uncovertebral and facet joint hypertrophic changes with moderate-severe left neural foraminal narrowing. The right neural foramen is patent. Bilateral perineural cysts are noted at T1-T2 on the right side at C7-T1. Procedure Note Torrey Magana MD - 11/29/2015 EXAMINATION: CT CERVICAL SPINE MYELOGRAM CLINICAL HISTORY: r hand pain, paresthesis s/p cervical spinal fusion TECHNIQUE: Serial axial CT cervical spine images were obtained after the administration of intrathecal Omnipaque 300 contrast material. Coronaland sagittal reconstructions were separately performed. COMPARISON: Cervical spine MRI exams from 07/13/2015, 01/30/2015 FINDINGS: Patient is status post C3-C5 ACDF. There is osseous fusion across thedisc spaces at the fused levels. There is a few millimeters of anterolisthesisof C5 on C6. Degenerative changes with intervertebral disc space narrowing,anterior osteophyte formation, uncovertebral and facet joint hypertrophic changesare present within the lower cervical spine. C2-C3: No disc herniation or central canal narrowing. Uncovertebraljoint hypertrophic changes with mild to moderate right neuroforaminal narrowing.The left neural foramen is patent. C3-C4: Advanced uncovertebral and asymmetric facet hypertrophic changes,with severe left and moderate right neural foraminal narrowing. Mild canalnarrowing because of a posterior disc osteophyte complex. C4-C5: Uncovertebral and facet hypertrophic changes with moderatebilateral neural foraminal narrowing. Mild canal narrowing because of a posteriordisc osteophyte complex. C5-C6: Mild anterolisthesis without disc herniation or central canalnarrowing. Uncovertebral and asymmetric left facet joint hypertrophic changes withmoderate bilateral neural foraminal narrowing. C6-C7: No disc herniation or central canal narrowing. Uncovertebral andfacet joint hypertrophic changes with severe bilateral neuroforaminalnarrowing. C7-T1: No disc herniation or central canal narrowing. Uncovertebral andfacet joint hypertrophic changes with moderate-severe left neural foraminalnarrowing. The right neural foramen is patent. Bilateral perineural cysts are noted at T1-T2 on the right side atC7-T1. IMPRESSION IMPRESSION: Patient status post C3-C5 ACDF with osseous bridging. Advanced changes of cervical spondylosis with advanced degrees of neural foraminal narrowing at several levels. I have personally reviewed the image(s) and the residents interpretationand agree with the findings, TORREY MAGANA at 11/29/2015 3:24 PM Bright Casanova MD IMG CT ORDERABLES documented in this encounter Visit Diagnoses Not on filedocumented in this encounter Care Teams Director Of Group Counseling Program Relationship Specialty Start Date End Date Reji Adams MD [facility] [place] [address] PCP - General General Internal Medicine 07/13/15 documented as of this encounter
--- OUTSIDE RECORDS SUMMARY | 2024-07-09 11:17 | XMS_ITS | Encounter Summary ---
Author Organization [facility] Address [facility] [place] [address] Care Team Providers Care Base Filler Name Role Phone Reji Adams MD Primary Care Provider [phone] Encounter Details Date Type Department Care Team (Latest Contact Info) Description 03/22/2016 8:12 AM EDT - 03/22/2016 11:59 PM EDT Hospital Encounter Non-[place] [address] Reji Adams MD [facility] [place] [address] Chest pain, unspecified type Discharge Disposition: Home [...] Take 1 tablet by mouth daily. 05/01/2016 ybabfuqi-vow-gvayqfhcq- vit D3 750 mg-125 mg -600 mg Tablet Take 2 tablets by mouth daily. 05/01/2016 metroNIDAZOLE (METROCREAM) 0.75 % Cream Apply topically as needed. Reported on 09/19/2016 09/19/2016 ibuprofen (ADVIL) 200 mg tablet Take 400 mg by mouth every 6 hours as needed. 05/08/2018 ALPRAZolam (XANAX) 0.25 mg tablet Take 0.25 mg by mouth 3 times daily as needed. 03/19/2018 Saw [place] 500 mg capsule Take 500 mg by [...] 11:30 AM EDT Office [place] [address] Charline Ziegler MD [facility] [place] [address] documented as of this encounter Procedures Procedure Name Priority Date/Time Associated Diagnosis Comments NUCLEAR PHARMACOLOGIC STRESS CARDIOLOGY Routine 03/22/2016 8:52 AM EDT Chest pain, unspecified type documented in this encounter Results * Nuclear Pharmacologic Stress Cardiology (03/22/2016 8:52 AM EDT) Anatomical Region Laterality Modality Other Reji Adams MD [facility] ORD ERABLES documented in this encounter Visit Diagnoses Diagnosis Chest pain, unspecified type documented in this encounter Care Teams Base Filler Relationship Specialty Start Date End Date Reji Adams MD [facility] [place] [address] PCP - General General Internal Medicine 07/13/15 documented as of this encounter
--- OUTSIDE RECORDS SUMMARY | 2024-07-09 11:17 | XMS_ITS | Encounter Summary ---
Author Organization [facility] [place] [address] Care Team Providers Care Pre K Special Education Teacher Name Role Phone Reji Adams MD Primary Care Provider [phone] Reason for Referral * Diagnostic Test (Routine) - Closed Specialty Diagnoses / Procedures Referred By Contac t Referred To Contact Radiology Diagnoses Neurogenic claudication Procedures MRI Lumbar Spine Without Contrast (GENERIC) Bright Casanova MD [address] [place] [address] [place] [address] Referral ID Status Reason Start Date Expiration Date V isits Requested Visits Authorized [id number] Closed Specialty Service Requested 12/08/2015 12/07/2016 1 1 Reason for Visit * Diagnostic Test (Routine) - Closed Specialty Diagnoses / Procedures Referred By Contac t Referred To Contact Radiology Diagnoses Neurogenic claudication Procedures MRI Lumbar Spine Without Contrast (GENERIC) Bright Casanova MD [address] [place] [address] [facility] [place] [address] Referral ID Status Reason Start Date Expiration Date V isits Requested Visits Authorized [id number] Closed Specialty Service Requested 12/08/2015 12/07/2016 1 1 Encounter Details Date Type Department Care Team (Latest Contact Info) Description 05/03/2016 2:05 PM EDT - 05/03/2016 11:59 PM EDT [place] [address] Bright Casanova MD Neurogenic claudication Discharge Disposition: Home Social History Tobacco [...] 3 times daily as needed. 03/19/2018 Saw [place] 500 mg capsule Take 500 mg by [...] 11:30 AM EDT Office [place] [address] Charline Ziegler MD [facility] [place] [address] documented as of this encounter Procedures Procedure Name Priority Date/Time Associated Diagnosis Comments MRI LUMBAR SPINE WITHOUT CONTRAST Routine 05/03/2016 3:20 PM EDT Neurogenic claudication documented in this encounter Results * MRI Lumbar Spine Without Contrast (GENERIC) (05/03/2016 3:20 PM EDT) Anatomical Region Laterality Modality L-spine Magnetic Resonan ce Impressions 05/03/2016 8:10 PM EDT Moderate to severe canal stenosis at L3-4 secondary to facet arthropathy and buckling of ligamentum flavum. Comment: The following findings are so common [...] disc protrusion (32%), annular fissure (38%). Narrative 05/03/2016 8:10 PM EDT EXAMINATION: MRI LUMBAR SPINE WO CONTRAST (GENERIC) CLINICAL HISTORY: Remote hx of lumbar surgery x2 now with early neurogenic claudication TECHNIQUE: MRI of the lumbar spine was performed without contrast, routine radiculopathy protocol. ? COMPARISON: CT abdomen/pelvis 08/31/2013 FINDINGS: Straightening of the lower lumbar lordosis and unchanged mild retrolisthesis of L2 with respect L3. Remote changes of L4-5 laminectomy with mature fusion of the lateral bone mass grafts. The regional bone is diffusely heterogeneous in signal. Chronic anterior wedging of T12 and L1. The conus is normal in signal and caliber, terminating at L1. Renal cortical cysts are noted bilaterally. Findings at individual levels: T12-L1: ??No significant spinal canal or neural foraminal narrowing. L1-L2: ??Broad annular disc bulge indents the ventral thecal sac resulting in mild subarticular recess narrowing without causing significant central canal narrowing. Facet arthropathy contributes to mild bilateral neural foraminal narrowing. L2-L3: ??Advanced degenerative disc disease with height loss and marginal endplate osteophytes. Facet arthropathy contributes to mild to moderate bilateral subarticular recess narrowing. There is focal severe right and moderate left neural foraminal narrowing. L3-L4: ??Adjacent to the fused levels. Broad annular disc bulge in combination with facet arthropathy and marked buckling of the calcified ligamentum flavum result in moderate to severe canal stenosis with mass effect on the nerve roots. Moderate neural foraminal. The left L3 nerve root courses posteriorly around the marginal bridging osteophyte/disc. L4-L5: ??Fused level. No significant canal stenosis. Annular fissure or postsurgical change. Mild neural foraminal narrowing. ? L5-S1: ??Postsurgical change of the left posterior disc. No significant canal or neural foraminal narrowing. ? Procedure Note Niki Holly MD - 05/03/2016 EXAMINATION: MRI LUMBAR SPINE WO CONTRAST (GENERIC) CLINICAL HISTORY: Remote hx of lumbar surgery x2 now with earlyneurogenic claudication TECHNIQUE: MRI of the lumbar spine was performed without contrast,routine radiculopathy protocol. COMPARISON: CT abdomen/pelvis 08/31/2013 FINDINGS: Straightening of the lower lumbar lordosis and unchanged mild retrolisthesis of L2 with respect L3. Remote changes of L4-5 laminectomywith mature fusion of the lateral bone mass grafts. The regional bone isdiffusely heterogeneous in signal. Chronic anterior wedging of T12 and L1. The conusis normal in signal and caliber, terminating at L1. Renal cortical cysts arenoted bilaterally. Findings at individual levels: T12-L1: No significant spinal canal or neural foraminal narrowing. L1-L2: Broad annular disc bulge indents the ventral thecal sac resultingin mild subarticular recess narrowing without causing significant centralcanal narrowing. Facet arthropathy contributes to mild bilateral neuralforaminal narrowing. L2-L3: Advanced degenerative disc disease with height loss and marginal endplate osteophytes. Facet arthropathy contributes to mild to moderate bilateral subarticular recess narrowing. There is focal severe right and moderate left neural foraminal narrowing. L3-L4: Adjacent to the fused levels. Broad annular disc bulge incombination with facet arthropathy and marked buckling of the calcified ligamentumflavum result in moderate to severe canal stenosis with mass effect on the nerveroots. Moderate neural foraminal. The left L3 nerve root courses posteriorlyaround the marginal bridging osteophyte/disc. L4-L5: Fused level. No significant canal stenosis. Annular fissure or postsurgical change. Mild neural foraminal narrowing. L5-S1: Postsurgical change of the left posterior disc. No significantcanal or neural foraminal narrowing. IMPRESSION Moderate to severe canal stenosis at L3-4 secondary to facet arthropathyand buckling of ligamentum flavum. Comment: The following findings are so common in people without low backpain that while we report their presence, they must be interpreted with cautionand in context of the clinical situation (Reference- Richk et al, [id number]). Findings: (Prevalence in patients without low back pain), discdegeneration (decreased T2 signal, height loss, bulge) (91%), disc T2-signal loss(83%), disc height loss (56%), disc bulge (64%), disc protrusion (32%), annularfissure (38%). Bright Casanova MD IMG MRI ORDERABLES documented in this encounter Visit Diagnoses Diagnosis Neurogenic claudication Spinal stenosis, lumbar region, with neurogenic claudication documented in this encounter Care Teams Pre K Special Education Teacher Relationship Specialty Start Date End Date Reji Adams MD [facility] [place] [place] [address] PCP - General General Internal Medicine 07/13/15 documented as of this encounter
--- OUTSIDE RECORDS SUMMARY | 2024-07-09 11:17 | XMS_ITS | Encounter Summary ---
Author Organization [facility] Address [facility] [place] [address] Care Team Providers Care Paper Testing Supervisor Name Role Phone Reji Adams MD Primary Care Provider [phone] Reason for Visit * Reason Comments Other reading of a cat-sca n Encounter Details Date Type Department Care Team (Latest Contact Info) Description 05/01/2016 2:00 PM EDT Office [place] [address] Leah Mccracken MD [facility] [place] [address] Asymmetrical sensorineural hearing loss; Otalgia of left ear Social History Tobacco [...] Sign Reading Time Taken Comments Blood Pressure 116/67 05/01/2016 1:48 PM EDT Pulse 69 05/01/2016 1:48 PM EDT Temperature - - Respiratory Rate 18 05/01/2016 1:48 PM EDT Oxygen Saturation 98% 05/01/2016 1:48 PM EDT Inhaled Oxygen Concentration - - Weight 99.8 kg (220 lb) 05/01/2016 1:48 PM EDT Height - - Body Mass Index 30.68 03/20/2016 1:14 PM EDT documented in this encounter Progress Notes * Leah Mccracken - 05/01/2016 2:00 PM EDT Chief Clinic Progress Note S: Continue to have intermittent left ear pain. No real change. No specific triggers. No facial twitching, no numbness, no face changes Increased balance difficulty. Continue to have asymmetric hearing loss. MRI from June with contrast and cuts through IAC - no evidence of AN Objective: Face symmetric Cooperative with exam Ambulates without difficulty TM intact, normal landmarks. 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 Patient unable to tolerate palpation of lesion MRI: Jun 2015 no evidence of AN, IAC with a few slices. Stable asymmetric hearing loss since 1997 (IAC MRI at that time) A/P: Left ear pain - most likely cervical in nature radiating to ear. Prior history of cervical spinal surgery. Discussed physical therapy and following up with spinal surgeon as needed. Asymptomatic hearing loss - stable; MRI scan in 2014 without evidence of AN, no indication to repeat it at this time. * Loren Fuller MD - 05/01/2016 2:00 PM EDT Pediatric Otolaryngology Attending Physician Addendum I discussed this patient and have reviewed the history and physical examination with the resident, Dr. Mccracken. I agree with the assessment and plan documented above unless otherwise specified in my addendum. Loren Fuller MD, PhD Pediatric Otolaryngology [facility] ([facility]) [facility] documented in this encounter Plan of Treatment Upcoming Encounters Date Type Department Care Team (Late st Contact Info) Description 12/15/2024 11:30 AM EDT Office Visit Gastroenterology at [place] [phone] Charline Ziegler MD [facility] [place] [address] documented as of this encounter Visit Diagnoses Diagnosis Asymmetrical sensorineural hearing loss Sensorineural hearing loss, asymmetrical Otalgia of left ear Otalgia, unspecified documented in this encounter Care Teams Paper Testing Supervisor Relationship Specialty Start Date End Date Reji Adams MD [facility] [place] [address] PCP - General General Internal Medicine 07/13/15 documented as of this encounter
--- OUTSIDE RECORDS SUMMARY | 2024-07-09 11:17 | XMS_ITS | Encounter Summary ---
Author Organization [facility] [place] [address] Care Team Providers Care Customer Service Engineer Name Role Phone Reji Adams MD Primary Care Provider [phone] Encounter Details Date Type Department Care Team (Late st Contact Info) Description 03/21/2016 Orders Only Internal Medicine at [address] [address] Reji Adams MD [facility] [place] [address] Chest pain, unspecified type Social History Tobacco [...] 11:30 AM EDT Office [place] [address] Charline Ziegler MD [facility] [address] documented as of this encounter Visit Diagnoses Diagnosis Chest pain, unspecified type documented in this encounter Care Teams Customer Service Engineer Relationship Specialty Start Date End Date Reji Adams MD [facility] [place] [address] PCP - General General Internal Medicine 07/13/15 documented as of this encounter
--- OUTSIDE RECORDS SUMMARY | 2024-07-09 11:17 | XMS_ITS | Encounter Summary ---
Author Organization [facility] [place] [address] Care Team Providers Care Sales Promoter Name Role Phone Reji Adams MD Primary Care Provider [phone] Reason for Visit * Reason Onset Date Comments New Medication Request 04/02/2016 per 03/22 visit Encounter Details Date Type Department Care Team (Late st Contact Info) Description 04/02/2016 Telephone Internal Medicine at [address] [address] Adenike Razo New Medication Request (per 03/22 visit) Social History Tobacco Use Types Packs/Day Years [...] Telephone Encounter - Beckie Holbrook RN - 04/02/2016 3:22 PM EDT Simvastatin 20mg sent to pharmacy * Telephone Encounter - Adenike Razo - 04/02/2016 2:36 PM EDT Message: pt calling back in regards to his visit on 03/22, he said he would like to start the statinthat was discussed. He uses the [facility] in [facility]. Caller and relationship (if other than patient-full name): self Best time to call back: any Ok to leave a message: [yes] Ok to send my- message: [] Offered Appointment: Nurse contacted via: Message: Call: Pager: documented in this encounter Plan of Treatment Upcoming Encounters Date Type Department Care Team (Late st Contact Info) Description 12/15/2024 11:30 AM EDT Office [place] [address] Charline Ziegler MD [facility] [place] [address] documented as of this encounter Visit Diagnoses Not on filedocumented in this encounter Care Teams Sales Promoter Relationship Specialty Start Date End Date Reji Adams MD [facility] [place] [address] PCP - General General Internal Medicine 07/13/15 documented as of this encounter
--- OUTSIDE RECORDS SUMMARY | 2024-07-09 11:17 | XMS_ITS | Encounter Summary ---
Author Organization [facility] [place] [address] Care Team Providers Care Skein Bleacher Name Role Phone Reji Adams MD Primary Care Provider [phone] Reason for Visit * Reason Comments Chest Pain Encounter Details Date Type Department Care Team (Late st Contact Info) Description 03/20/2016 1:18 PM EDT - 03/20/2016 4:52 PM EDT [place] [address] Anurag Olmos MD [facility] [place] [address] Other chest pain Discharge Disposition: Home Social History Tobacco [...] Sign Reading Time Taken Comments Blood Pressure 98/63 03/20/2016 4:30 PM EDT Pulse 65 03/20/2016 4:30 PM EDT Temperature 36.5 ??C (97.7 ??F) 03/20/2016 4:51 PM ED T Respiratory Rate 19 03/20/2016 4:30 PM EDT Oxygen Saturation 98% 03/20/2016 4:30 PM EDT Inhaled Oxygen Concentration - - Weight 102.1 kg (225 lb) 03/20/2016 1:14 PM EDT Height 180.3 cm (5' 11) 03/20/2016 1:14 PM EDT Body Mass Index 31.38 03/20/2016 1:14 PM EDT documented in this encounter Discharge Instructions * Discharge Instructions* Anurag Olmos MD - 03/20/2016 4:43 PM EDT Images from the original note were not included. As we discussed, follow-up immediately with your regular physician, a referral has been placed to cardiology. Return to the emergency Department immediately should any symptoms in your chest recur. [facility] Chest Pain: After Your Visit Your Care Instructions There are many things that can cause chest pain. Some are not serious and will get better on their own in a few days. But some kinds of chest pain need more testing and treatment. Your doctor may have recommended a follow-up visit in the next 8 to 12 hours. If you are not getting better, you may need more tests or treatment. Even though your doctor has released you, you still need to watch for any problems. The doctor carefully checked you, but sometimes problems can develop later. If you have new symptoms or if your symptoms do not get better, get medical care right away. If you have worse or different chest pain or pressure that lasts more than 5 minutes or you passed out (lost consciousness), call 911 or seek other emergency help right away. A medical visit is only one step in your treatment. Even if you feel better, you still need to do what your doctor recommends, such as going to all suggested follow-up appointments and taking medicines exactly as directed. This will help you recover and help prevent future problems. How can you care for yourself at home? ?? Rest until you feel better. ?? Take your medicine exactly as prescribed. Call your doctor if you think you are having a problemwith your medicine. ?? Do not drive after taking a prescription pain medicine. When should you call for help? Call 911 if: ?? You passed out (lost consciousness). ?? You have severe difficulty breathing. ?? You have symptoms of a heart attack. These may include: ?? Chest pain or pressure, or a strange feeling in your chest. ?? Sweating. ?? Shortness of breath. ?? Nausea or vomiting. ?? Pain, pressure, or a strange feeling in your back, neck, jaw, or upper belly or in one or both shoulders or arms. ?? Lightheadedness or sudden weakness. ?? A fast or irregular heartbeat. After you call 911, the stiff leg operator may tell you to chew 1 adult-strength or 2 to 4 low-dose aspirin. Wait for an ambulance. Do not try to drive yourself. Call your doctor today if: ?? You have any trouble breathing. ?? Your chest pain gets worse. ?? You are dizzy or lightheaded, or you feel like you may faint. ?? You are not getting better as expected. ?? You are having new or different chest pain. Where can you learn more? Visit our health information library at [email or web address] You can also view health information on [employer], your personal patient account. Log in or sign up today. Enter A120 in the search box to learn more about Chest Pain: After Your Visit. ?? [id number] [employer]. Care instructions adapted under license by [facility]. This care instruction is for use with your licensed healthcare professional. If you have questions about a medical condition or this instruction, always ask your healthcare professional. [employer] disclaims any warranty or liability for your use of this information. Content Version: 10.4.982560; Current as of: December 29, 2013 documented in this encounter Medications at Time of Discharge Medication Sig Dispensed Refills Start Date End Date multivitamin (THERAGRAN) tablet Take 1 tablet by mouth daily. ciprofloxacin (CIPRO) 250 mg Tablet Take 1 tablet by mouth 2 times daily for 42 days. 60 tablet 1 02/08/2016 03/21/2016 BORON ORAL Take 1 tablet by mouth daily. 05/01/2016 gsmpvtiy-dvk-cyoppvhzu -vit D3 750 mg-125 mg -600 mg Tablet Take 2 tablets by mouth daily. 05/01/2016 metroNIDAZOLE (METROCREAM) 0.75 % Cream Apply topically as needed. Reported on 09/19/2016 09/19/2016 ibuprofen (ADVIL) 200 mg tablet Take 400 mg by mouth every 6 hours as needed. 05/08/2018 ALPRAZolam (XANAX) 0.25 mg tablet Take 0.25 mg by mouth 3 times daily as needed. 03/19/2018 Saw Watson 500 mg capsule Take 500 mg by mouth daily. 03/14/2020 Mavis Extract 500 mg Cap Take 1 capsule by mouth daily. 03/24/2017 naproxen sodium (ALEVE) 220 mg tablet Take 220 mg by mouth as needed. 01/04/2011 07/09/2017 documented as of this encounter ED Notes * Anurag Olmos MD - 03/20/2016 1:58 PM EDT Chief Complaint Patient presents with ??? Chest Pain HPI Chest pain. 70-year-old male awoke this morning in his usual state of health, experienced a very brief lightening-like discomfort passing through his body - lasting less than 1 second - afterwards he had residual pressure and discomfort in his chest, which continues. Not associated with nausea, radiation or diaphoresis. No previous similar episodes. Significant family history atherosclerotic disease. Had a negative cardiac MR about 3 years ago. Patient Active Problem List Diagnosis Code ??? [...] R20.2 ??? Shoulder pain, bilateral M25.511, M25.512 Social History Social History ??? Marital status: [...] Not on file Social History Narrative ??? aspirin chewable tablet 324 mg ??? nitroGLYcerin (NITROSTAT) SL tablet 0.4 mg ??? ciprofloxacin (CIPRO) 250 mg Tablet ??? BORON ORAL ??? obqujomk-rdo-vbpcxskjh-vit D3 750 mg-125 mg -600 mg Tablet ??? metroNIDAZOLE (METROCREAM) 0.75 % Cream ??? ibuprofen (ADVIL) 200 mg tablet ??? ALPRAZolam (XANAX) 0.25 mg tablet ??? multivitamin (THERAGRAN) tablet ??? Saw Watson 500 mg capsule ??? Mavis Extract 500 mg Cap ??? naproxen sodium (ALEVE) 220 mg tablet Allergies Allergen Reactions ??? Penicillins Tongue swelling Review of Systems Constitutional: Negative. Negative for chills, diaphoresis and fever. HENT: Negative. Negative for sneezing and sore throat. Eyes: Negative. Negative for visual disturbance. Respiratory: Negative. Negative for cough, chest tightness, shortness of breath and wheezing. Cardiovascular: Positive for chest pain. Negative for palpitations and leg swelling. Gastrointestinal: Negative. Negative for abdominal pain, blood in stool, diarrhea, nausea and vomiting. Genitourinary: Negative. Negative for dysuria and hematuria. Musculoskeletal: Negative. Negative for back pain, neck pain and neck stiffness. Skin: Negative. Negative for rash. Neurological: Negative. Negative for dizziness, syncope, weakness, numbness and headaches. Hematological: Negative for adenopathy. Psychiatric/Behavioral: Negative. Negative for confusion. Physical Exam Constitutional: He is oriented to person, place, and time. He appears well- developed and well-nourished. No distress. Normally developed normally nourished in no acute distress. Good color and hydration. Stable and normal vital signs. HENT: Head: Normocephalic and atraumatic. Mouth/Throat: Oropharynx is clear and moist. Eyes: Conjunctivae and EOM are normal. Pupils are equal, round, and reactive to light. No scleral icterus. Neck: Normal range of motion. Neck supple. No JVD present. No tracheal deviation present. No thyromegaly present. Cardiovascular: Normal rate, regular rhythm, normal heart sounds and intact distal pulses. No murmur heard. Normal cardiac auscultation. 1+ symmetrical dependent edema with tenderness. Pulmonary/Chest: Effort normal and breath sounds normal. No stridor. No respiratory distress. He has no wheezes. He has no rales. He exhibits no tenderness. Abdominal: Soft. Bowel sounds are normal. He exhibits no distension and no mass. There is no tenderness. There is no rebound and no guarding. Benign. Musculoskeletal: Normal range of motion. He exhibits no edema or tenderness. Lymphadenopathy: He has no cervical adenopathy. Neurological: He is alert and oriented to person, place, and time. He has normal reflexes. No cranial nerve deficit. Coordination normal. Incidentally noted is a classic pill rolling tremor in the right hand. Skin: Skin is warm and dry. No rash noted. He is not diaphoretic. Psychiatric: He has a normal mood and affect. Nursing note and vitals reviewed. Procedures Electrocardiogram interpreted by me as no ACS. Bifascicular block but unchanged from previous. Chest x-ray read by me as negative. Recent Results (from the past 24 hour(s)) Blue Tube HOLD Result Value Ref Range Blue Hold Sample in lab. Cardiac Enzymes Result Value Ref Range Troponin-T <0.03 <=0.03 ng/mL CK, Total 150 0 - 200 unit/L Basic Metabolic Panel (non-fasting) Result Value Ref Range Glucose Lvl 97 65 - 199 mg/dL BUN 14 10 - 20 mg/dL Creatinine 0.92 0.80 - 1.50 mg/dL Sodium 139 135 - 145 mmol/L Potassium 4.0 3.5 - 5.0 mmol/L Chloride 101 98 - 107 mmol/L CO2 25 22 - 31 mmol/L Anion Gap 13 5 - 15 mmol/L Calcium 9.3 8.5 - 10.5 mg/dL Estimated GFR >60 >=60 Hemogram Result Value Ref Range WBC 6.4 4.0 - 10.0 x10(3)/mcL RBC 5.01 4.63 - 6.08 x10(6)/mcL Hemoglobin 15.2 13.7 - 17.5 gm/dL Hematocrit 43.8 40.0 - 51.0 % MCV 87.4 79.0 - 92.0 fL MCH 30.3 25.6 - 32.2 pg MCHC 34.7 32.0 - 36.5 gm/dL Platelets 187 145 - 370 x10(3)/mcL RDWSD 43.1 35.0 - 46.0 fL RDWCV 13.5 10.9 - 14.4 % MPV 10.0 9.0 - 12.0 fL nRBC % Auto 0.0 % nRBC Abs Auto 0.000 0.000 - 0.012 x10(3)/mcL Differential, Automated Result Value Ref Range Neutrophils % 59.0 % Neutr Abs (ANC) 3.78 1.50 - 6.30 x10(3)/mcL Lymphocytes % 32.4 % Lymphocytes Abs 2.1 1.0 - 3.6 x10(3)/mcL Monocytes % 6.9 % Monocyte Abs 0.4 0.2 - 1.0 x10(3)/mcL Eosinophils % 0.9 % Eosinophils Abs 0.1 0.0 - 0.5 x10(3)/mcL Basophils % 0.5 % Basophils Abs 0.0 0.0 - 0.2 x10(3)/mcL Immature Gran % 0.30 % Mahsa Gran Abs 0.02 0.00 - 0.05 x10(3)/mcL Gold Tube HOLD Result Value Ref Range Gold Hold Sample in lab. MDM Chest pain: Atypical. Especially the initial lightning bolt type episode. The resolution of the 1 out of 10 pressure with nitroglycerin is a consideration. I recommended that the patient allow me to admit him to our chest pain protocol. He preferred discharge and follow-up. Risks fully discussed. The remainder of the differential is low probability. No indication of PE. No indication of vascular event. ED Course: ED Course There is no data filed. Because the patient wished to discharge home I kept him in the department a relatively long period of time and repeated the electrocardiogram. He remained asymptomatic and without worrisome symptoms or findings. Anurag Olmos MD 03/20/16 1733 * Kevin Camacho RN - 03/20/2016 1:42 PM EDT Patient complains of headache after nitroglycerin administration. Reassured patient of common side effect. Will continue to monitor. * Alfreda Garcia RN - 03/20/2016 1:26 PM EDT MD at bedside, awaiting dispoo documented in this encounter Miscellaneous Notes * ED Triage - Alfreda Garcia RN - 03/20/2016 1:17 PM EDT Pt presents with midsternum chest pain/pressure. Pt reports pressure starting 2 hrs prior and is constant and reports nausea and dizziness, pain 5/10.. Denies any numbness or tingling to arms or legs. Pt took 324 asa at home. Pt is speaking in complete sentences, appears in some distress and deniesany prior cardiac hx. Skin is pale warm and dry documented in this encounter Plan of Treatment Upcoming Encounters Date Type Department Care Team (Late st Contact Info) Description 12/15/2024 11:30 AM EDT Office [place] [address] Charline Ziegler MD [facility] [place] [address] Scheduled Orders Name Type Priority Associated Diagnoses Orde r Schedule EKG 12 Lead ECG STAT One Time for 1 Occurrences starting 03/20/2016 until 03/20/2016 documented as of this encounter Procedures Procedure Name Priority Date/Time Associated Diagnosis Comments EKG 12-LEAD STAT 03/20/2016 4:37 PM EDT XR CHEST PA AND LATERAL STAT 03/20/2016 1:53 PM EDT HEMOGRAM STAT 03/20/2016 1:28 PM EDT DIFFERENTIAL, AUTOMATED STAT 03/20/2016 1:28 PM EDT GOLD TUBE HOLD STAT 03/20/2016 1:28 PM EDT BLUE TUBE HOLD STAT 03/20/2016 1:28 PM EDT CARDIAC ENZYMES (MC/CGP) STAT 03/20/2016 1:28 PM EDT CBC (WITH DIFF) STAT 03/20/2016 1:28 PM EDT BASIC METABOLIC PANEL STAT 03/20/2016 1:28 PM EDT EKG 12-LEAD STAT 03/20/2016 1:14 PM EDT documented in this encounter Results * EKG 12 Lead (03/20/2016 4:37 PM EDT) Ventricular rate 64 BPM MUSE SYSTEM Atrial Rate 64 BPM MUSE SYSTEM P-R Interval 184 ms MUSE SYSTEM QRS Duration 156 ms MUSE SYSTEM Q-T Interval 440 ms MUSE SYSTEM QTC Calculated (Bezet) 453 ms MUSE SYSTEM Calculated P [place] 58 degrees MUSE SYSTEM Calculated R [place] -68 degrees MUSE SYSTEM Calculated T [place] 20 degrees MUSE SYSTEM INTERPRETATION Normal sinus rhythm Right bundle branch block Left anterior fascicular block Bifascicular block Minimal voltage criteria for LVH, may be normal variant Septal infarct (cited on or before 11-NOV-2011) When compared with ECG of 20-MAR-2016 13:14, No significant change was found Confirmed by MD Rhett, Kristofer ([id number]) on 03/21/2016 9:55:50 AM MUSE SYSTEM 03/20/2016 4:37 PM EDT 03/21/2016 9:55 AM EDT Anurag Olmos MD ECG ORDERABLES MUSE SYSTEM * XR Chest PA & Lateral (Generic) (03/20/2016 1:53 PM EDT) Anatomical Region Laterality Modality Chest N/A Digital Radiogra phy Impressions 03/20/2016 1:55 PM EDT No acute cardiopulmonary process or other significant abnormality Narrative 03/20/2016 1:55 PM EDT EXAMINATION: XR CHEST PA AND LATERAL CLINICAL HISTORY: CP TECHNIQUE: Upright PA and lateral chest COMPARISON: 11/11/2011 FINDINGS: There is no interval change. The lungs are clear. The cardiomediastinal silhouette and edi appear normal. No pleural effusion, pneumothorax or significant bone abnormality is seen. Procedure Note Rigo Reyes MD - 03/20/2016 EXAMINATION: XR CHEST PA AND LATERAL CLINICAL HISTORY: CP TECHNIQUE: Upright PA and lateral chest COMPARISON: 11/11/2011 FINDINGS: There is no interval change. The lungs are clear. The cardiomediastinal silhouette and edi appear normal. No pleural effusion, pneumothorax or significant bone abnormality is seen. IMPRESSION No acute cardiopulmonary process or other significant abnormality Anurag Olmos MD IMG DX ORDERABLES * Gold Tube HOLD (03/20/2016 1:28 PM EDT) Pathologist [facility] Gold Hold Sample in lab. [facility] Blood specimen (specimen) No Charge / Unknown 03/20/2016 1:28 PM EDT 03/20/2016 1:42 PM EDT Qian Tipton MD CHEMISTRY ORDERABLE S [facility] [place] [address] * Differential, Automated (03/20/2016 1:28 PM EDT) Neutrophil % 59.0 % [facility] Neutrophil Absolute 3.78 1.50 - 6.30 x10(3)/mcL [facility] Lymph % 32.4 % [facility] Lymphocytes Abs 2.1 1.0 - 3.6 x10(3)/[facility] Monocyte % 6.9 % [facility] Monocyte Abs 0.4 0.2 - 1.0 x10(3)/[facility] Eos % 0.9 % [facility] Eosinophils Abs 0.1 0.0 - 0.5 x10(3)/[facility] Basophil % 0.5 % [facility] Baso Absolute 0.0 0.0 - 0.2 x10(3)/[facility] Immature Gran % 0.30 % [facility] Comment: Immature granulocytes(IG's)percentage and absolute count will include metamyelocytes, myelocytes, and promyelocytes. Blood smears from CBCs yielding IG's will be scanned manually for concordance. If this scan disagrees with the automated IG or if promyelocytes are noted, a manual differential will be performed. Immature Gran Absolute 0.02 0.00 - 0.05 x10(3)/[facility] Blood specimen (specimen) 03/20/2016 1:28 PM EDT 03/20/2016 1:41 PM EDT Narrative Resulting Agency Comment Spec In Lab Qian Tipton MD HEMATOLOGY ORDERABL ES Performing Organization Address City/State/[facility] Co de Phone Number [facility] [place] [address] * Hemogram (03/20/2016 1:28 PM EDT) White Blood Cell 6.4 4.0 - 10.0 x10(3)/[facility] Red Blood Cell 5.01 4.63 - 6.08 x10(6)/[facility] Hemoglobin 15.2 13.7 - 17.5 gm/dL [facility] Hematocrit 43.8 40.0 - 51.0 % [facility] Mean Cell Volume 87.4 79.0 - 92.0 fL [facility] Mean Cell Hemoglobin 30.3 25.6 - 32.2 pg [facility] Mean Cell Hemoglobin Concentration 34.7 32.0 - 36.5 gm/dL [facility] Platelet 187 145 - 370 x10(3)/[facility] RDW Standard Deviation 43.1 35.0 - 46.0 fL [facility] RDW coefficient of variation 13.5 10.9 - 14.4 % [facility] Mean Platelet Volume 10.0 9.0 - 12.0 fL [facility] NRBC% auto 0.0 % [facility] NRBC Absolute 0.000 0.000 - 0.012 x10(3)/[facility] Blood specimen (specimen) 03/20/2016 1:28 PM EDT 03/20/2016 1:41 PM EDT Narrative Resulting Agency Comment Spec In Lab Qian Tipton MD HEMATOLOGY ORDERABL ES [facility] [place] [address] * Basic Metabolic Panel (non-fasting) (03/20/2016 1:28 PM EDT) Glucose 97 65 - 199 mg/dL [facility] Comment:Diabetes: >=200 mg/d L plus symptoms Blood Urea Nitrogen 14 10 - 20 mg/dL [facility] Creatinine 0.92 0.80 - 1.50 mg/dL [facility] Comment: Please note that the pediatric reference intervals supplied above were not validated at [facility]. Results from pediatric patients should be interpreted in conjunction to the patient's age, height and muscle mass. Sodium 139 135 - 145 mmol/L [facility] Potassium 4.0 3.5 - 5.0 mmol/L [facility] Comment: Please note: ??Patients with WBC >100,000 may have falsely elevated Potassium levels. ??For accurate Potassium quantification in these patients send serum separator tube (gold top) for subsequent determinations. ??Contact the Clinical Chemistry Laboratory if there are any questions. Chloride 101 98 - 107 mmol/L [facility] Carbon Dioxide 25 22 - 31 mmol/L [facility] Anion Gap 13 5 - 15 mmol/L [facility] Calcium 9.3 8.5 - 10.5 mg/dL [facility] Est Glomerular Filtration Rate >60 >=60 [facility] Comment: This estimated GFR (eGFR) [...] the following links into your internet browser. [email or web address] Blood specimen (specimen) 03/20/2016 1:28 PM EDT 03/20/2016 1:41 PM EDT Narrative Resulting Agency Comment Spec In Lab Qian Tipton MD CHEMISTRY ORDERABLE S [facility] [place] [address] * Cardiac Enzymes (03/20/2016 1:28 PM EDT) Troponin-T <0.03 <=0.03 ng/mL [facility] Comment: 0.03 ng/mL: Represents the 99th percentile upper reference limit for normals. >0.03 ng/mL: Elevated cardiac troponin T level indicative of myocardial damage. Diagnosis of acute, evolving or recent [place] requires a typical rise and gradual fall of cTnT with at least ONE of the following: a) Ischemic symptoms b) Development of pathologic Q waves on the ECG c) ECG changes indicative of eschemia (S-T segment elevation/depression) d) Coronary artery intervention Serial bloods should be obtained for testing on admission, at 6 to 9 hrs and again at 12 to 24 hrs if earlier samples are negative and the clinical index of suspicion is high. Reference: [Myocardial infarction redefined? a consensus document of the Joint Society of Cardiology/[place] [employer] Committee for the redefinition of myocardial infarction. ??Journal of the [place] College [employer] 2000; 36: 959-969] Creatine Kinase 150 0 - 200 unit/L [facility] Blood specimen (specimen) 03/20/2016 1:28 PM EDT 03/20/2016 1:41 PM EDT Narrative Resulting Agency Comment Spec In Lab Qian Tipton MD CHEMISTRY ORDERABLE S Performing Organization Address [facility] de Phone Number [facility] [place] [place] [address] * Blue Tube HOLD (03/20/2016 1:28 PM EDT) Blue Hold Sample in lab. [facility] Blood specimen (specimen) 03/20/2016 1:28 PM EDT 03/20/2016 1:41 PM EDT Qian Tipton MD HEMATOLOGY ORDERABL ES Performing Organization Address [facility] de Phone Number [facility] [place] [address] * EKG 12 Lead (03/20/2016 1:14 PM EDT) Ventricular rate 64 BPM MUSE SYSTEM Atrial Rate 64 BPM MUSE SYSTEM P-R Interval 170 ms MUSE SYSTEM QRS Duration 156 ms MUSE SYSTEM Q-T Interval 434 ms MUSE SYSTEM QTC Calculated (Bezet) 447 ms MUSE SYSTEM Calculated P [place] 79 degrees MUSE SYSTEM Calculated R [place] -68 degrees MUSE SYSTEM Calculated T [place] 45 degrees MUSE SYSTEM INTERPRETATION Normal sinus rhythm Right bundle branch block Left anterior fascicular block Bifascicular block Left ventricular hypertrophy with QRS widening Cannot rule out Septal infarct (cited on or before 11-NOV-2011) Abnormal ECG When compared with ECG of 24-AUG-2015 14:38, No significant change was found Confirmed by MD SCHNEIDER ARMIN ([id number]) on 03/20/2016 6:12:09 PM MUSE SYSTEM 03/20/2016 1:14 PM EDT 03/20/2016 6:12 PM EDT Qian Tipton MD ECG ORDERABLES MUSE SYSTEM documented in this encounter Visit Diagnoses Diagnosis Other chest pain documented in this encounter Administered Medications Inactive Administered Medications - up to 3 most recent administrations Medication Order MAR Action Action Date Dose Rate Site aspirin chewable tablet 324 mg 324 mg, Oral, ONCE, 1 dose, On Fri03/20/16 at 1342, Routine Given 03/20/2016 2:45 PM EDT 324 mg nitroGLYcerin (NITROSTAT) SL tablet 0.4 mg 0.4 mg, Sublingual, EVERY 5 MIN, 3 doses, First dose on Fri03/20/16 at 1327, Last dose on Fri03/20/16 at 1337, Per Clinical Protocol, Routine Given 03/20/2016 1:30 PM EDT 0.4 mg nitroGLYcerin (NITROSTAT) SL tablet 0.4 mg 0.4 mg, Sublingual, EVERY 5 MIN PRN, Starting on Fri03/20/16 at 1340, Until Fri03/20/16 at 1852, Chest pain, Indications: Chest pain suspected to be cardiac in origin (contraindicated if erectile dysfunction medications within 48 hours) with systolic blood pressure at least 100 mm Hg. Check with physician prior to administration if systolic blood pressure less than 100 mmHG. Repeat once if pain is still greater than 3/10 in 5 minutes., Routine documented in this encounter Active and Recently Administered Medications Times are shown in EDT. Scheduled Medication Order 03/18/2016 03/19/2016 03/20/2016 aspirin chewable tablet 324 mg (COMPLETED) 324 mg, Oral, ONCE, 1 dose, On Fri03/20/16 at 1342, Routine 1445 (Given - Provid er: Kevin Camacho RN) nitroGLYcerin (NITROSTAT) SL tablet 0.4 mg 0.4 mg, Sublingual, EVERY 5 MIN, 3 doses, First dose on Fri03/20/16 at 1327, Last dose on Fri03/20/16 at 1337, Per Clinical Protocol, Routine 1330 (Given - Provid er: Kevin Camacho RN)1332 (Due)1337 (Due) PRN Medication Order 03/18/2016 03/19/2016 03/20/2016 nitroGLYcerin (NITROSTAT) SL tablet 0.4 mg 0.4 mg, Sublingual, EVERY 5 MIN PRN, Starting on Fri03/20/16 at 1340, Until Fri03/20/16 at 1852, Chest pain, Indications: Chest pain suspected to be cardiac in origin (contraindicated if erectile dysfunction medications within 48 hours) with systolic blood pressure at least 100 mm Hg. Check with physician prior to administration if systolic blood pressure less than 100 mmHG. Repeat once if pain is still greater than 3/10 in 5 minutes., Routine documented in this encounter Care Teams Skein Bleacher Relationship Specialty Start Date End Date Reji Adams MD [facility] [place] [address] PCP - General Internal Medicine 07/13/15 documented as of this encounter
--- OUTSIDE RECORDS SUMMARY | 2024-07-09 11:17 | XMS_ITS | Encounter Summary ---
Author Organization [facility] [place] [address] Care Team Providers Care Business Analysis Specialist Name Role Phone Reji Adams MD Primary Care Provider [phone] Encounter Details Date Type Department Care Team (Latest Contact Info) Description 03/27/2016 2:30 PM EDT Office Visit Audiology at [address] [address] Stacy Lloyd AUD [facility] [place] [address] Otalgia, left; Asymmetrical sensorineural hearing loss; Tinnitus, left Social History Tobacco Use Types Packs/Day [...] as of this encounter Progress Notes * Stacy Lloyd AUD - 03/27/2016 2:30 PM EDT [place] [address] Ken Mckeon was seen today for an audiologic evaluation. Please refer to scanned audiogram underprocedures for details on history, results and recommendations. Enclosure: Audiogram Lisbet [place] [address] ; documented in this encounter Plan of Treatment Upcoming Encounters Date Type Department Care Team (Late st Contact Info) Description 12/15/2024 11:30 AM EDT Office Visit [place]ology [place] [address] Charline Ziegler MD [facility] [place] [address] documented as of this encounter Procedures Procedure Name Priority Date/Time Associated Diagnosis Comments COMPREHENSIVE HEARING TEST Routine 03/27/2016 2:02 PM EDT documented in this encounter Results * Comprehensive hearing test (03/27/2016 2:02 PM EDT) 03/27/2016 2:02 PM EDT Narrative [facility] - 03/27/2016 2:02 PM EDT Seen today for a hearing re-evaluation in conjunction with Dr. Mccracken. Mr. Mckeon has longstanding asymmetric sensorineural hearing loss, poorer hearing in the left ear. His last hearing evaluation was in 2013. He reports that he has been experiencing pain in the left ear for quite some time- many months. He also reports left-sided tinnitus and periodic left aural fullness. States that he experiences lightheadedness and disequilibrium. Results: RIGHT: Normal hearing sensitivity from 250-4000 Hz and mild sloping to moderate sensorineural hearing loss from 1963-9660 Hz. LEFT: Normal hearing at 250, 1000 and 1500 Hz; mild to moderately-severe sensorineural hearing loss from 8523-8015 Hz. Hearing thresholds stable re: 2013. Recommendations: Follow-up with ENT as scheduled Procedure Note Unknown - 03/27/2016 Seen today for a hearing re-evaluation in conjunction with Dr. Mccracken. has longstanding asymmetric sensorineural hearing loss, poorer hearing in theleft ear. His last hearing evaluation was in 2013. He reports that he has been experiencingpain in the left ear for quite some time- many months. He also reports left-sided tinnitusand periodic left aural fullness. States that he experiences lightheadedness anddisequilibrium. Results: RIGHT: Normal hearing sensitivity from 250-4000 Hz and mild sloping tomoderate sensorineural hearing loss from 3620-0036 Hz. LEFT: Normal hearing at 250, 1000 and 1500 Hz; mild to moderately- severesensorineural hearing loss from 2208-5264 Hz. Hearing thresholds stable re: 2013. Recommendations: Follow-up with ENT as scheduled Unknown AUDIOLOGY SERVICES O RDERABLES [facility] documented in this encounter Visit Diagnoses Diagnosis Otalgia, left Asymmetrical sensorineural hearing loss Sensorineural hearing loss, asymmetrical Tinnitus, left Unspecified tinnitus documented in this encounter Care Teams Business Analysis Specialist Relationship Specialty Start Date End Date Reji Adams MD [facility] [place] [address] PCP - General Internal Medicine 07/13/15 documented as of this encounter
--- OUTSIDE RECORDS SUMMARY | 2024-07-09 11:17 | XMS_ITS | Encounter Summary ---
Author Organization [facility] [place] [address] Care Team Providers Care Sales And Catering Coordinator Name Role Phone Reji Adams MD Primary Care Provider [phone] Encounter Details Date Type Department Care Team (Late st Contact Info) Description 04/02/2016 Telephone Cardiology at [address] [address] Adama Eubanks Jr., MD [address] [place] [id number] Social History Tobacco Use Types Packs/Day Years [...] encounter Miscellaneous Notes * Telephone Encounter - Yumiko Awad RN - 04/02/2016 9:42 AM EDT Opened in error, wrong pt. * Telephone Encounter - Pia Dumont - 04/02/2016 8:46 AM EDT From answering service 03/30/16 Please call regarding a change in patients dosage of medication Paged Dr. Vaughn Gregg Mckeon 1945 documented in this encounter Plan of Treatment Upcoming Encounters Date Type Department Care Team (Late st Contact Info) Description 12/15/2024 11:30 AM EDT Office Visit G[place] [address] Charline Ziegler MD [facility] [place] [address] documented as of this encounter Visit Diagnoses Not on filedocumented in this encounter Care Teams Sales And Catering Coordinator Relationship Specialty Start Date End Date Reji Adams MD [facility] GENERAL [place] [address] PCP - General General Internal Medicine 07/13/15 documented as of this encounter
--- OUTSIDE RECORDS SUMMARY | 2024-07-09 11:18 | XMS_ITS | Encounter Summary ---
Author Organization [facility] [place] [address] Care Team Providers Care Slot Operations Manager Name Role Phone Reji Adams MD Primary Care Provider [phone] Encounter Details Date Type Department Care Team (Late st Contact Info) Description 03/14/2015 Interpretation Only Radiology [address] [place] [address] [place] [phone] Unknown None Social History Tobacco Use Types Packs/Day Years Used Date Smoking Tobacco: Never Smokeless Tobacco: Current Chew Comments:3 cans/ week. Alcohol Use Standard Drinks/Week Comments Yes 1 (1 standard drink = 0.6 oz pur [...] 11:30 AM EDT Office [place] [phone] Charline Ziegler MD [facility] [place] [address] documented as of this encounter Procedures Procedure Name Priority Date/Time Associated Diagnosis Comments XR CERVICAL SPINE 2 OR 3 VIEWS Routine 03/14/2015 10:20 AM EDT documented in this encounter Results * XR Cervical Spine 2 Or 3 Views (03/14/2015 10:20 AM EDT) Anatomical Region Laterality Modality C-spine N/A Radiographic Chelsea ging 03/14/2015 10:2 0 AM EDT Narrative 03/14/2015 10:20 AM EDT APD Historical Result Principal Station Usher: ??RICK ??MADIE CERVICAL SPINE - THREE VIEWS: CLINICAL HISTORY: ??Status post ACDF, January 31, 2015, status post cervical spinal fusion. Correlation is made with April 25, 2008. There is evidence of ACDF from C3 through C5 with anterior plate and screws and disc prosthesis. ??There is some disc space narrowing at C2-3 and mild retrolisthesis of C2 with respect to C3, similar to the prior exam. ??There is mild anterolisthesis of C5 with respect to C7, which increases slightly with flexion. ??Degenerative disc space narrowing and osteophyte formation at C6-7 and C7/T1 again noted, with slight progression at C7/T1 and minimally at C6-7. ??Facet joint sclerosis noted at multiple levels. A prominent, well-marginated calcific density projects anterior to C2 and C3. ??This is unchanged and was noted to be located on the left side on the prior AP view. IMPRESSION: (1) Interval postsurgical changes, as above. ??Degenerative changes, as described. ?? Mild anterolisthesis of C5 with respect to C6, slightly more pronounced with flexion. ??(2) Chronic prominent smoothly-marginated calcific density, as above. Rick Ramachandran MD ELIZA/jose [id number] CC: Procedure Note Unknown - 01/25/2019 APD Historical Result Principal Station Usher: RICK RAMACHANDRAN CERVICAL SPINE - THREE VIEWS: CLINICAL HISTORY: Status post ACDF, January 31, 2015, status post cervicalspinal fusion. Correlation is made with April 25, 2008. There is evidence of ACDF from C3 through C5 with anterior plate andscrews and disc prosthesis. There is some disc space narrowing at C2-3 and mildretrolisthesis of C2 with respect to C3, similar to the prior exam. There is mild anterolisthesis of C5 with respect toC7, which increases slightly with flexion. Degenerative disc space narrowing and osteophyteformation at C6-7 and C7/T1 again noted, with slight progression at C7/T1 and minimally at C6-7. Facetjoint sclerosis noted at multiple levels. A prominent, well-marginated calcific density projects anterior to C2 andC3. This is unchanged and was noted to be located on the left side on the prior APview. IMPRESSION: (1) Interval postsurgical changes, as above. Degenerativechanges, as described. Mild anterolisthesis of C5 with respect to C6, slightly more pronouncedwith flexion. (2) Chronic prominent smoothly-marginated calcific density, as above. Rick Ramachandran MD ELIZA/jose [id number] CC: Unknown IMG DX ORDERABLES documented in this encounter Visit Diagnoses Not on filedocumented in this encounter Care Teams Slot Operations Manager Relationship Specialty Start Date End Date Reji Adams MD [facility] [place] [address] PCP - General Internal Medicine 07/13/15 documented as of this encounter
--- OUTSIDE RECORDS SUMMARY | 2024-07-09 11:18 | XMS_ITS | Encounter Summary ---
[place] [address] Care Team Providers Care Padding Machine Operator Name Role Phone Reji Adams MD Primary Care Provider Reason for Visit * Reason Onset Date Comments Referral 11/07/2014 Encounter Details Date Type Department Care Team (Late st Contact Info) Description 11/07/2014 Telephone [place] [phone] Dianelys Alfaro Referral Social History Tobacco Use Types Packs/Day [...] encounter Miscellaneous Notes * Telephone Encounter - Savanah Mcgee - 11/09/2014 2:08 PM EDT Ask the patient to verify the following: Full Name: Ken Mckeon : 1945 Phone number: [phone] (home) Mailing address: [address] [address] Age: 69 y.o. Appointment date: 11/15/14 Appointment is with: LUCITA Reason #1 Injury/ComplaintR CTS Date of injury/complaint: NO Is this a new injury? No Is this a 2nd opinion? No Appointment type: 18-100 Adult - Not sports related Is this Workers Comp? No How long have you had these symptoms? RECENT Records Retrieval Most recent physical exam: No X-rays: No MRI: No CT Scan: No Physical therapy: No Injection: No Other diagnostic studies: Yes - What? When? Where? Who? Notes: [facility] 2014 [facility] Other therapies: No Other specialist(s): No If 2nd (+) opinion get info on previous: No Have you had any surgeries for this issue? Yes - What? When? Where? Who? 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 No Do you use any type of orthotics? No Additional injuries: Advanced Directive Do you have an Advanced Directive on file: No - Please bring a copy to your next appointment. Advance Directive packing machine pilot can router: N/A MyDH Do you have a MyDH account? Yes * Telephone Encounter - Dianelys Colby - 11/07/2014 10:35 AM EDT I left a message for patient to call about scheduling their referral. documented in this encounter Plan of Treatment Upcoming Encounters Date Type Department Care Team (Late st Contact Info) Description 12/15/2024 11:30 AM EDT Office [place] [address] Charline Ziegler MD [facility] [place] [address] documented as of this encounter Visit Diagnoses Not on filedocumented in this encounter Care Teams Padding Machine Operator Relationship Specialty Start Date End Date Reji Adams MD [facility] GENERAL [place] [address] PCP - General 02/12/12 06/27/15 documented as of this encounter
--- OUTSIDE RECORDS SUMMARY | 2024-07-09 11:18 | XMS_ITS | Encounter Summary ---
Author Organization [facility] Address [facility] [place] [address] Care Team Providers Care Grinder Set Up Operator Name Role Phone Reji Adams MD Primary Care Provider Reason for Visit * Reason Onset Date Comments Appointment 08/30/2015 Referral 08/30/2015 Encounter Details Date Type Department Care Team (Late st Contact Info) Description 08/30/2015 Telephone [place] [phone] Bebeto Lomeli MD [facility] [place] [address] Appointment; Referral Social History Tobacco Use Types Packs/Day [...] Miscellaneous Notes * Telephone Encounter - Dianelys Long - 08/30/2015 9:12 AM EST Scheduled * Telephone Encounter - Janine Machado - 08/30/2015 8:44 AM EST LM#1 to schedule appt with Dr Lomeli- requesting documents from Dr Dos Santos's office & [facility] This patient needs to schedule a follow-up appointment with Dr. Lomeli for persistent tingling following revision carpal tunnel surgery and cervical spine fusion. He has been seen by Dr. Conner in [place] and this would be considered a second opinion. He has seen Dr. Lomeli for other complaints in the past. His most recent imaging is available, but I cannot tell whether we have his most recentnerve conduction studies from [facility]. We would need these prior to his appointment with Dr. Lomeli. Thanks. ? -Abbie documented in this encounter Plan of Treatment Upcoming Encounters Date Type Department Care Team (Late st Contact Info) Description 12/15/2024 11:30 AM EDT Office Visit [place] [address] Charline Ziegler MD [facility] [place] [address] documented as of this encounter Visit Diagnoses Not on filedocumented in this encounter Care Teams Grinder Set Up Operator Relationship Specialty Start Date End Date Reji Adams MD [facility] GENERAL [place] [address] PCP - General General Internal Medicine 07/13/15 documented as of this encounter
--- OUTSIDE RECORDS SUMMARY | 2024-07-09 11:18 | XMS_ITS | Encounter Summary ---
Author Organization [facility] [place] [address] Care Team Providers Care User Experience Manager Name Role Phone Reji Adams MD Primary Care Provider [phone] Reason for Referral * Diagnostic Test (Routine) - Closed Specialty Diagnoses / Procedures Referred By Contac t Referred To Contact Radiology Diagnoses Pain of hand, unspecified laterality Procedures MRI Cervical Spine With/WO Contrast Morgan Cruz MD [address] [place] [address] [place] [address] Referral ID Status Reason Start Date Expiration Date V isits Requested Visits Authorized [id number] Closed Specialty Service Requested 06/28/2015 06/27/2016 1 1 Reason for Visit * Diagnostic Test (Routine) - Closed Specialty Diagnoses / Procedures Referred By Contac t Referred To Contact Radiology Diagnoses Pain of hand, unspecified laterality Procedures MRI Cervical Spine With/WO Contrast Morgan Cruz MD [address] [place] [address] [place] [address] Referral ID Status Reason Start Date Expiration Date V isits Requested Visits Authorized [id number] Closed Specialty Service Requested 06/28/2015 06/27/2016 1 1 Encounter Details Date Type Department Care Team (Latest Contact Info) Description 07/13/2015 6:56 AM EST - 07/13/2015 11:59 PM EST Hospital Encounter [place] [phone] Morgan Cruz MD [address] [place] [id number] Pain of hand, unspecified laterality Discharge Disposition: Home Social History Tobacco [...] tablet Take 1 tablet by mouth daily. metroNIDAZOLE (METROCREAM) 0.75 % Cream Apply topically as needed. Reported on 09/19/2016 09/19/2016 ibuprofen (ADVIL) 200 mg tablet Take 400 mg by mouth every 6 hours as needed. 05/08/2018 ALPRAZolam (XANAX) 0.25 mg tablet Take 0.25 mg by mouth 3 times daily as needed. 03/19/2018 Saw [place] 500 mg capsule Take 500 mg [...] AM EDT Office Visit G[place]ology [place] [phone] Charline Ziegler MD [facility] [place] [address] documented as of this encounter Procedures Procedure Name Priority Date/Time Associated Diagnosis Comments MRI CERVICAL SPINE WITH/WO CONTRAST Routine 07/13/2015 8:13 AM EST Pain of hand, unspecified laterality documented in this encounter Results * MRI Cervical Spine With/WO Contrast (07/13/2015 8:13 AM EST) Anatomical Region Laterality Modality C-spine Magnetic Resonan ce Impressions 07/13/2015 8:39 AM EST arthropathy again noted. IMPRESSION: 1. ??Improved patency of the central cervical spinal canal at C4-C5 following the surgery. 2. ??Unchanged myelomalacia spanning the C4 and C5 levels. 3. ??Severe degrees of bilateral neural foraminal narrowing at multiple levels because of degenerative change Narrative 07/13/2015 8:39 AM EST EXAMINATION: MRI CERVICAL SPINE WITH/WO CONTRAST CLINICAL HISTORY: hand pain, neck pain, s/p cervical spinal fusion, stenosis, cervical spine TECHNIQUE: Cervical spine MRI with and without contrast. Myelopathy protocol 10 cc Gadavist administered. COMPARISON: Cervical spine MRI 01/30/2015. FINDINGS: Since the previous study, a C3-C5 anterior fusion has been performed. Alignment at these levels is improved although there is still several millimeters of C5 on C6 anterolisthesis. There is improved patency of the spinal canal at C4-C5. Myelomalacia with cord volume loss and areas of signal alteration spanning the C4-C5 levels not significantly changed. No new areas of cord signal alteration. No abnormal enhancement. Advanced bilateral neural foraminal narrowing at multiple levels because of uncovertebral and facet Procedure Note Tomas Falcon MD - 07/13/2015 EXAMINATION: MRI CERVICAL SPINE WITH/WO CONTRAST CLINICAL HISTORY: hand pain, neck pain, s/p cervical spinal fusion,stenosis, cervical spine TECHNIQUE: Cervical spine MRI with and without contrast. Myelopathyprotocol 10 cc Gadavist administered. COMPARISON: Cervical spine MRI 01/30/2015. FINDINGS: Since the previous study, a C3-C5 anterior fusion has beenperformed. Alignment at these levels is improved although there is still several millimeters of C5 on C6 anterolisthesis. There is improved patency of thespinal canal at C4-C5. Myelomalacia with cord volume loss and areas of signal alteration spanning the C4-C5 levels not significantly changed. No newareas of cord signal alteration. No abnormal enhancement. Advanced bilateralneural foraminal narrowing at multiple levels because of uncovertebral andfacet IMPRESSION arthropathy again noted. IMPRESSION: 1. Improved patency of the central cervical spinal canal at C4-[id number] the surgery. 2. Unchanged myelomalacia spanning the C4 and C5 levels. 3. Severe degrees of bilateral neural foraminal narrowing at multiplelevels because of degenerative change Morgan Cruz MD IMG MRI ORDERABLES documented in this encounter Visit Diagnoses Diagnosis Pain of hand, unspecified laterality documented in this encounter Administered Medications Inactive Administered Medications - up to 3 most recent administrations Medication Order MAR Action Action Date Dose Rate Site gadobutrol (GADAVIST) 1 mMol/mL injection 9.98 mL 9.98 mL (0.1 mL/kg/dose ? 99.8 kg Order-specific weight), Intravenous, ONCE PRN, 1 dose, Starting on Alice 07/13/15 at 0733, Until Alice 07/13/15 at 0755, Per Protocol, Routine Given 07/13/2015 7:55 AM EST 10 mLs documented in this encounter Care Teams User Experience Manager Relationship Specialty Start Date End Date Reji Adams MD [facility] [place] [address] PCP - General [place] Internal Medicine 07/13/15 documented as of this encounter
--- OUTSIDE RECORDS SUMMARY | 2024-07-09 11:18 | XMS_ITS | Encounter Summary ---
[place] [address] Care Team Providers Care Liaison Planner Name Role Phone Reji Adams MD Primary Care Provider [phone] Encounter Details Date Type Department Care Team (Late st Contact Info) Description 08/07/2015 Telephone [place] [phone] Rama Drake, RN Social History Tobacco Use Types Packs/Day [...] encounter Miscellaneous Notes * Telephone Encounter - Rama Drake RN - 08/07/2015 1:12 PM EST TELEPHONE NOTE Responsible Provider: TBD Caller: Mr. Mckeon Reason for call: Mr. Mckeon is being referred to an Upper Extremity Specialist by his neurologist at [facility] for a radial nerve entrapment. Assessment: Need more information. Plan/Instructions: Mr. Mckeon will have his neurologist fax the referral and EMG, gcp will review with Dr. Lomeli/ Dr. Dunn (per req pt, not Dr. Perkins). documented in this encounter Plan of Treatment Upcoming Encounters Date Type Department Care Team (Late st Contact Info) Description 12/15/2024 11:30 AM EDT Office Visit [place] [address] Charline Ziegler MD [facility] [place] [address] documented as of this encounter Visit Diagnoses Not on filedocumented in this encounter Care Teams Liaison Planner Relationship Specialty Start Date End Date Reji Adams MD [facility] [place] [address] PCP - General General Internal Medicine 07/13/15 documented as of this encounter
--- OUTSIDE RECORDS SUMMARY | 2024-07-09 11:18 | XMS_ITS | Encounter Summary ---
Author Organization [facility] [place] [address] Care Team Providers Care Mechanical Maintenance Engineer Name Role Phone Reji Adams MD Primary Care Provider [phone] Encounter Details Date Type Department Care Team (Latest Contact Info) Description 01/30/2015 10:51 AM EDT - 01/30/2015 11:59 PM EDT [place] [address] CLINIC, Bright Swain MD Discharge Disposition: Home Social History Tobacco [...] 3 times daily as needed. 03/19/2018 Saw [place] 500 mg capsule Take 500 mg by [...] AM EDT Office Visit Gastroenterology at [facility] [place] [address] Charline Ziegler MD [facility] [place] [address] documented as of this encounter Procedures Procedure Name Priority Date/Time Associated Diagnosis Comments MRI CERVICAL SPINE WO CONTRAST Routine 01/30/2015 11:43 AM EDT documented in this encounter Results * MRI cervical spine WO contrast (01/30/2015 11:43 AM EDT) Anatomical Region Laterality Modality C-spine Magnetic Resonan ce 01/30/2015 11:4 3 AM EDT Impressions 01/30/2015 12:01 PM EDT IMPRESSION: Increased conspicuity of bilateral intramedullary spinal cord signal abnormality at C3-4 and C4-5 (particularly on the left at C4-5). The signal abnormality represent may represent edema or gliosis. The degrees of spinal stenosis and cord compression at these levels are not measurably altered. No new site of spinal stenosis Narrative 01/30/2015 12:01 PM EDT EXAMINATION: MR Cspine WO Lenin CLINICAL HISTORY: NECK PAIN stenosis progressive symptoms of myelopathy TECHNIQUE: MRI of the cervical spine was obtained per myelopathy protocol. No intravenous contrast. COMPARISON: MRI of cervical spine of 11/07/2014. FINDINGS: There is no interval change in the anterolisthesis of C4 through SPECT to C5. No new alignment abnormality is present. The disc and uncovertebral osteophyte at C3-4 and C4-5 are not appreciably changed given differences in technique. The degree of cord compression does not appear changed. The signal abnormality within the cervical spinal cord, extending from C3-4 through C4-5, shows slight increase in conspicuity in its lower margin and on the left. No entirely new site of signal abnormality is present Procedure Note Logan Myrick MD - 01/30/2015 EXAMINATION: MR Bowser WO Lenin CLINICAL HISTORY: NECK PAIN stenosis progressive symptoms of myelopathy TECHNIQUE: MRI of the cervical spine was obtained per myelopathy protocol.No intravenous contrast. COMPARISON: MRI of cervical spine of 11/07/2014. FINDINGS: There is no interval change in the anterolisthesis of C4 through SPECT toC5. No new alignment abnormality is present. The disc and uncovertebralosteophyte at C3-4 and C4-5 are not appreciably changed given differences in technique.The degree of cord compression does not appear changed. The signalabnormality within the cervical spinal cord, extending from C3-4 through C4-5, showsslight increase in conspicuity in its lower margin and on the left. No entirelynew site of signal abnormality is present IMPRESSION IMPRESSION: Increased conspicuity of bilateral intramedullary spinal cord signalabnormality at C3-4 and C4-5 (particularly on the left at C4-5). The signalabnormality represent may represent edema or gliosis. The degrees of spinal stenosisand cord compression at these levels are not measurably altered. No new site of spinal stenosis Bright Casanova MD IMG MRI ORDERABLES documented in this encounter Visit Diagnoses Not on filedocumented in this encounter Care Teams Mechanical Maintenance Engineer Relationship Specialty Start Date End Date Reji Adams MD [facility] [place] [address] PCP - General 02/12/12 06/27/15 documented as of this encounter
--- OUTSIDE RECORDS SUMMARY | 2024-07-09 11:18 | XMS_ITS | Encounter Summary ---
Author Organization [facility] [place] [address] Care Team Providers Care Retail Department Manager Name Role Phone Reji Adams MD Primary Care Provider [phone] Encounter Details Date Type Department Care Team (Latest Contact Info) Description 11/07/2014 6:51 AM EDT - 11/07/2014 11:59 PM EDT Hospital [place] [address] CLINIC, Ron Stovall MD [address] [place] [address] [address] [place] [address] Discharge Disposition: Home Social History Tobacco Use [...] 3 times daily as needed. 03/19/2018 Saw [place] 500 mg capsule Take 500 mg by [...] 11:30 AM EDT Office Visit [place] [address] Charline Ziegler MD [facility] [place] [address] documented as of this encounter Procedures Procedure Name Priority Date/Time Associated Diagnosis Comments MRI CERVICAL SPINE WO CONTRAST Routine 11/07/2014 7:47 AM EDT documented in this encounter Results * MRI cervical spine WO contrast (11/07/2014 7:47 AM EDT) Anatomical Region Laterality Modality C-spine Magnetic Resonan ce 11/07/2014 7:47 AM EDT Impressions 11/07/2014 9:12 AM EDT IMPRESSION: 1. ??Cervical spondylosis with severe canal stenosis at C3-C4 and now also at C4-C5. ?? 2. 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 ??Questionable cord signal alteration at C4 and C4-C5 on the left. 3. ??Multilevel advanced degrees of neural foraminal stenosis as detailed above. Narrative 11/07/2014 9:12 AM EDT EXAMINATION: MR Niels WO Lenin CLINICAL HISTORY: NECK PAIN TECHNIQUE: MRI of cervical spine was performed without contrast, radiculopathy protocol COMPARISON: MR C-spine 09/24/2012 FINDINGS: There is reversal of normal cervical lordosis in the lower cervical spine. Mild anterolisthesis of C3 with respect to C4, C4 the respect to C5 and C5 with respect to C6. ??The regional bone marrow is normal in signal. ??The vertebral body heights are maintained. ??The prevertebral soft tissues are normal in thickness. The Maryana posterior fossa is unremarkable. Unchanged focal cord signal alteration on the right at C3-C4 spanning approximately 5 mm in the craniocaudal dimension. Questionable focal signal abnormality within the left ventral cord at the C4 level and dorsal cord at the C4-5 level; this could be artifactual. Findings at individual levels: C2-C3: ??No significant canal stenosis. Minimal right neural foraminal stenosis. C3-C4: ??Similar to the prior study, posterior disc osteophyte complex and buckling of the ligamentum flavum contribute to moderate to severe canal stenosis, greater on the left with indentation of the cord. ??Uncovertebral osteophytes and facet arthropathy, right greater than left contribute to severe bilateral neural foraminal stenosis. C4-C5: Central disc protrusion, midline ventral ossification ??and buckling of the ligamentum flavum contribute to severe canal stenosis. Prominent uncovertebral osteophytes and facet arthropathy contribute to moderate to severe neural foraminal stenosis bilaterally. ??Findings at this level have progressed. C5-C6: ??Posterior disc osteophyte complex mildly indents the ventral thecal sac contributing to mild canal stenosis. Uncovertebral osteophytes contribute to mild right and at least moderate left neural foraminal stenosis. ? C6-C7: ??Small uncovertebral osteophyte indents the ventral thecal sac. Uncovertebral osteophytes, right larger than left contribute to moderate left and moderate to severe right foraminal stenosis. ? C7-T1: ??Central disc protrusion indents the ventral thecal sac and indents the right greater than left ventral cord an contributes to mild canal stenosis. Uncovertebral osteophytes, right left greater than right contribute to moderate to severe left foraminal stenosis. No significant right neural foraminal stenosis. Procedure Note Niki Holly MD - 11/07/2014 EXAMINATION: MR Niels WO Lenin CLINICAL HISTORY: NECK PAIN TECHNIQUE: MRI of cervical spine was performed without contrast,radiculopathy protocol COMPARISON: MR C-spine 09/24/2012 FINDINGS: There is reversal of normal cervical lordosis in the lower cervical spine.Mild anterolisthesis of C3 with respect to C4, C4 the respect to C5 and C5with respect to C6. The regional bone marrow is normal in signal. Thevertebral body heights are maintained. The prevertebral soft tissues are normalin thickness. The Maryana posterior fossa is unremarkable. Unchanged focal cord signal alteration on the right at C3-C4 spanning approximately 5 mm in the craniocaudal dimension. Questionable focalsignal abnormality within the left ventral cord at the C4 level and dorsal cordat the C4-5 level; this could be artifactual. Findings at individual levels: C2-C3: No significant canal stenosis. Minimal right neural foraminalstenosis. C3-C4: Similar to the prior study, posterior disc osteophyte complexand buckling of the ligamentum flavum contribute to moderate to severe canal stenosis, greater on the left with indentation of the cord.Uncovertebral osteophytes and facet arthropathy, right greater than left contribute tosevere bilateral neural foraminal stenosis. C4-C5: Central disc protrusion, midline ventral ossification and bucklingof the ligamentum flavum contribute to severe canal stenosis. Prominent uncovertebral osteophytes and facet arthropathy contribute to moderate tosevere neural foraminal stenosis bilaterally. Findings at this level haveprogressed. C5-C6: Posterior disc osteophyte complex mildly indents the ventralthecal sac contributing to mild canal stenosis. Uncovertebral osteophytes contributeto mild right and at least moderate left neural foraminal stenosis. C6-C7: Small uncovertebral osteophyte indents the ventral thecal sac. Uncovertebral osteophytes, right larger than left contribute to moderateleft and moderate to severe right foraminal stenosis. C7-T1: Central disc protrusion indents the ventral thecal sac and indentsthe right greater than left ventral cord an contributes to mild canalstenosis. Uncovertebral osteophytes, right left greater than right contribute tomoderate to severe left foraminal stenosis. No significant right neural foraminal stenosis. IMPRESSION IMPRESSION: 1. Cervical spondylosis with severe canal stenosis at C3-C4 and now alsoat C4-C5. 2. Unchanged right cord signal alteration at C3-C4 may reflectspondylotic myelopathy. Questionable cord signal alteration at C4 and C4-C5 on theleft. 3. Multilevel advanced degrees of neural foraminal stenosis as detailedabove. Ron Burns MD IMG MRI ORDERABLES documented in this encounter Visit Diagnoses Not on filedocumented in this encounter Care Teams Retail Department Manager Relationship Specialty Start Date End Date Reji Adams MD [facility] [place] [address] PCP - General 02/12/12 06/27/15 documented as of this encounter
--- OUTSIDE RECORDS SUMMARY | 2024-07-09 11:18 | XMS_ITS | Encounter Summary ---
Author Organization [facility] Address [facility] [place] [address] Care Team Providers Care Applications Intern Name Role Phone Reji Newberry MD Primary Care Provider [phone] Reason for Visit * Reason Comments Fatigue been here before for this thing Urinary Frequency Encounter Details Date Type Department Care Team (Late st Contact Info) Description 12/29/2014 9:45 AM EDT Office Visit Internal Medicine at [address] [address] Pita Sotomayor PA [facility] [place] [address] Urinary frequency; Fatigue Discharge Disposition: Home Social History Tobacco Use [...] Sign Reading Time Taken Comments Blood Pressure 116/74 12/29/2014 9:48 AM EDT Pulse 84 12/29/2014 9:48 AM EDT Temperature 36.5 ??C (97.7 ??F) 12/29/2014 9:48 AM ED T Respiratory Rate - - Oxygen Saturation 100% 12/29/2014 9:48 AM EDT Inhaled Oxygen Concentration - - Weight 98.9 kg (218 lb) 12/29/2014 9:48 AM EDT Height 179.1 cm (5' 10.5) 12/29/2014 9:48 AM ED T Body Mass Index 30.84 12/29/2014 9:48 AM EDT documented in this encounter Progress Notes * Pita Sotomayor PA - 12/29/2014 9:59 AM EDT PATIENT: Ken Cole : 1945 PCP: REJI NEWBERRY MD CHIEF COMPLAINT: Chief Complaint Patient presents with ??? Fatigue been here before for this thing ??? Urinary Frequency HISTORY OF PRESENT ILLNESS: Ken Cole is a 69 y.o. male who presents to the office today for an acute visit. He feels like he has no energy over the last 4-6 weeks Has had similar sxs in the past - last seen in September by Dr. Contreras. Had full set of labs including CBC, CMP, b12, folate, SPEP, CRP - WNL Intermittent difficulty sleeping - feels like he has pretty good sleep hygiene Feels like depressed mood comes and goes - does not feel like it is a huge contributor to how he isfeeling No SI Does not want to consider meds Takes 0.75 mg of xanax before bed - sometimes it works, sometimes it does not He has also tried benadryl Melatonin did not work in the past Does not want to consider sleeping pill Urinary sxs x 1 month - similar intermittent in the past as well Urinating frequency Some urgency Output varies No nocturia - stops drinking late in afternoon, hydrates well before this No dysuria No hematuria No incontinence He has some hesitancy - not new No dribbling No perineal pain Has had prostatitis in the past - current sxs do not feel similar PSA: 2.71 on 10/2013 No abdominal pain No vomiting, but has intermittent nausea at times (cannot describe aggravating or alleviating factors) Bowels are erratic - not a new thing No black stools No BRBPR Does take intermittent Advil for neck pain Having surgery on his neck next month No fevers, chills, night sweats No unintentional weight loss No tick bites or rashes No recent travel No URI sxs No CP or SOB REVIEW OF SYSTEMS: Review of Systems As per HPI Patient Active Problem List Diagnosis ??? Peripheral neuropathy Diagnosis in progress, decrease in sharp sensation, and vibratory sensation in b/l feet ??? Numbness Lateral three digits of R hand ??? Urinary urgency W/ hesitency, given duration, likely BPH ??? Fatigue Short duration ??? Cervical stenosis of spinal canal ??? Finger pain ??? Ileitis ??? Back pain ??? Depression ??? Bilateral shoulder pain ??? Cervical radiculopathy ??? Insomnia ??? Neck pain ??? Anxiety ??? Lightheadedness ??? Varicose veins of legs ??? OA (osteoarthritis) of knee right ??? Cataract extraction status of left eye ??? Status post total knee replacement TKR Right knee in 2007 Social History Narrative None on file Allergies Allergen Reactions ??? Penicillins Tongue swelling [...] 1 tablet by mouth daily. ??? Saw [place] 500 mg capsule Take 500 mg by mouth daily. ??? Mavis Extract 500 mg Cap Take 1 capsule by mouth daily. ??? naproxen sodium (ALEVE) 220 mg tablet Take 220 mg by mouth as needed. No current facility-administered medications for this visit. PHYSICAL EXAM: BP 116/74 Pulse 84 Temp(Src) 36.5 ??C (97.7 ??F) Ht 179.1 cm (5' 10.5) Wt 98.884 kg (218 lb) BMI 30.83 kg/m2 SpO2 100% Physical Exam Constitutional: He is oriented to person, place, and time. Well appearing, in NAD HENT: Head: Normocephalic and atraumatic. Right Ear: External ear normal. Left Ear: External ear normal. Mouth/Throat: Oropharynx is clear and moist. No oropharyngeal exudate. Eyes: Conjunctivae and EOM are normal. Pupils are equal, round, and reactive to light. No scleral icterus. Neck: Neck supple. No thyromegaly present. Cardiovascular: Normal rate, regular rhythm and normal heart sounds. No murmur heard. Pulmonary/Chest: Effort normal and breath sounds normal. No respiratory distress. He has no wheezes. He has no rales. Abdominal: Soft. Bowel sounds are normal. He exhibits no distension and no mass. There is no tenderness. There is no rebound and no guarding. Genitourinary: Rectum normal and prostate normal. Guaiac negative stool. End of prostate palpable - non-tender/boggy Musculoskeletal: He exhibits no edema. Lymphadenopathy: He has no cervical adenopathy. Neurological: He is alert and oriented to person, place, and time. No cranial nerve deficit. Skin: Skin is warm and dry. Psychiatric: He has a normal mood and affect. ASSESSMENT/PLAN: Ken was seen today for fatigue and urinary frequency. Diagnoses and associated orders for this visit: Urinary frequency -This is not a new symptom for him over all. I do suspect this is 2/2 BPH, but will send urine for UA/UCx to r/o infection. No prostate tenderness on exam. -PSA: 2.71 on 10/2013 - Urinalysis with microscopic - Urine culture Clean Catch Urine - POCT urine dipstick Fatigue - Vague. Etiology unclear. Seen for same sxs back in September with full lab work up other than TSH. Wewill check TSH today. - Did discuss possibility of mood/stress contributing to how pt feels. He did acknowledge that thismight be a contributing factor. No interested in intervention. - Also discussed sleep hygiene. - TSH F/u TBD Signs and symptoms that would require prompt medical re-evaluation were discussed with the patient.The patient verbalized understanding and agreement with the plan. MATT Briggs documented in this encounter Plan of Treatment Upcoming Encounters Date Type Department Care Team (Late st Contact Info) Description 12/15/2024 11:30 AM EDT Office Visit Gastroenterology at [place] [phone] Charline Ziegler MD [facility] [place] [address] documented as of this encounter Procedures Procedure Name Priority Date/Time Associated Diagnosis Comments URINALYSIS WITH REFLEX CULTURE Routine 12/29/2014 10:56 AM EDT Urinary frequency URINE CULTURE Routine 12/29/2014 10:56 AM EDT Urinary frequency TSH Routine 12/29/2014 10:56 AM EDT Fatigue POCT URINE DIPSTICK Routine 12/29/2014 1 0:00 AM EDT Urinary frequency documented in this encounter Results * TSH (12/29/2014 10:56 AM EDT) Thyroid Stimulating Hormone 1.37 0.27 - 4.20 mcIU/mL CERNER MILLENNIUM Blood specimen (specimen) 12/29/2014 10:56 AM EDT 12/29/2014 1:33 PM EDT Narrative Resulting Agency Comment Spec In Lab Reji Newberry MD CHEMISTRY ORDERABLES [facility] [employer] * (ABNORMAL) Urinalysis with microscopic (12/29/2014 10:56 AM EDT) Glucose, Urine Dipstick Negative Negative mg/dL CERNER MILLENNIUM Protein, Urine Dipstick Negative Negative mg/dL CERNER MILLENNIUM Bilirubin, Urine Dipstick Negative Negative mg/dL CERNER MILLENNIUM Comment: Clinical correlation required for positive Urine Bilirubin results as false positive may occur with some drugs and drug related products. If a false positive is suspected a serum total bilirubin should be considered if clinically indicated. Urobilinogen, Urine Dipstick Normal Normal mg/dL CERNER MILLENNIUM pH, Urn (dipstick) 5.0 5.0 - 8.0 CERNER MILLENNIUM Blood, Urine Dipstick Negative Negative mg/dL CERNER MILLENNIUM Ketone, Urine Dipstick Negative Negative mg/dL CERNER MILLENNIUM Nitrite, Urine Dipstick Negative Negative CERNER MILLENNIUM Leukocytes, Urine Dipstick Negative Negative mcL CERNER MILLENNIUM Appearance, Urine Dipstick Hazy(A) Clear CERNER MILLENNIUM Specific Flora Urine Automated 1.020 1.002 - 1.030 CERNER MILLENNIUM Color, Urine Dipstick Yellow Yellow CERNER MILLENNIUM RBC, Urine 2 0 - 3 /HPF CERNER MILLENNIUM WBC, Urine <1 0 - 3 /HPF CERNER MILLENNIUM Urine specimen (specimen) 12/29/2014 10:56 AM EDT 12/29/2014 1:33 PM EDT Narrative Resulting Agency Comment Spec In Lab Reji Newberry MD URINE ORDERABLES CERNER MILLENNIUM * Urine culture Clean Catch Urine (12/29/2014 10:56 AM EDT) Urine Culture ? Patient Name: KEN COLE ?Ordered By: [id number] -REJI NEWBERRY ? MR#: [id number] ?LOC: ??LYME ? /Sex: ?? 7 (69 years), ? Male ? PROCEDURE: Urine Culture ?SOURCE: U CC ? COLLECTED: 12/29/2014 10:56 ? STARTED: 12/29/2014 14:10 ? FINAL REPORT ? Final Report ? Verified: 07:35 ? No growth (Less than 1,000 cfu/ml). ? ____ [place] [place] Urine specimen obtained by clean catch procedure (specimen) 12/29/2014 10:56 AM EDT 12/29/2014 2:09 PM EDT Narrative Resulting Agency Comment Spec In Lab Reji Newberry MD MICROBIOLOGY - GENER AL ORDERABLES [facility] * (ABNORMAL) POCT urine dipstick (12/29/2014 10:00 AM EDT) POC Sp Flora 1.020 1.002 - 1.030 POC pH, UA [...] neg Negative - Negative POC Blood, UA trace Negative - Negative denise/uL 12/29/2014 10:0 0 AM EDT Reji Newberry MD POINT OF CARE TEST O RDERABLES documented in this encounter Visit Diagnoses Diagnosis Urinary frequency Fatigue Other malaise and fatigue documented in this encounter Care Teams Applications Intern Relationship Specialty Start Date End Date Reji Newberry MD [facility] [place] [address] PCP - General 02/12/12 06/27/15 documented as of this encounter
--- OUTSIDE RECORDS SUMMARY | 2024-07-09 11:18 | XMS_ITS | Encounter Summary ---
Author Organization [facility] Address [facility] [place] [address] Care Team Providers Care Bouffant Curtain Machine Tender Name Role Phone Reji Adams MD Primary Care Provider [phone] Encounter Details Date Type Department Care Team (Latest Contact Info) Description 01/13/2015 8:22 AM EDT - 01/13/2015 11:59 PM EDT Hospital Encounter XRay at [address] [place] [address] Right hand pain Social History Tobacco Use Types Packs/Day [...] 3 times daily as needed. 03/19/2018 Saw [place] 500 mg capsule Take 500 mg by [...] 11:30 AM EDT Office [place] [address] Charline Ziegler MD [facility] [place] [address] documented as of this encounter Procedures Procedure Name Priority Date/Time Associated Diagnosis Comments XR HAND DIAGNOSTIC MINIMUM 3 VIEWS Routine 01/13/2015 8:26 AM EDT Right hand pain documented in this encounter Results * XR hand diagnostic minimum 3 views (01/13/2015 8:26 AM EDT) Anatomical Region Laterality Modality Hand N/A Radiographic [place] ging 01/13/2015 8:26 AM EDT Impressions 01/13/2015 8:48 AM EDT IMPRESSION: 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 Narrative 01/13/2015 8:48 AM EDT EXAMINATION: DIAG HAND MIN 3 VIEWS/RIGHT CLINICAL HISTORY: RIGHT HAND PAIN TECHNIQUE: DIAG HAND MIN 3 VIEWS/RIGHT COMPARISON: None FINDINGS: There is an old ununited ulnar styloid fracture along with mild degenerative change at the radial ulnar joint and basilar joint of the thumb, the latter consistent with the patient's age. Bone density is normal. There is no joint space narrowing or erosions. No soft tissue calcification. Procedure Note Jay Tavera MD - 01/13/2015 EXAMINATION: DIAG HAND MIN 3 VIEWS/RIGHT CLINICAL HISTORY: RIGHT HAND PAIN TECHNIQUE: DIAG HAND MIN 3 VIEWS/RIGHT COMPARISON: None FINDINGS: There is an old ununited ulnar styloid fracture along withmild degenerative change at the radial ulnar joint and basilar joint of thethumb, the latter consistent with the patient's age. Bone density is normal.There is no joint space narrowing or erosions. No soft tissue calcification. IMPRESSION IMPRESSION: Old ununited ulnar styloid fracture with minor scattered areasof osteoarthritis, otherwise normal study. Bebeto Lomeli MD IMG DX ORDERABLES documented in this encounter Visit Diagnoses Diagnosis Right hand pain Pain in limb documented in this encounter Care Teams Bouffant Curtain Machine Tender Relationship Specialty Start Date End Date Reji Adams MD [facility] [place] [address] PCP - General 02/12/12 06/27/15 documented as of this encounter
--- OUTSIDE RECORDS SUMMARY | 2024-07-09 11:18 | XMS_ITS | Encounter Summary ---
Author Organization [facility] [place] [address] Care Team Providers Care Supervisor Histology Name Role Phone Reji Newberry MD Primary Care Provider Reason for Visit * Reason Comments Back Pain walked into shelf, h urts inmiddle of back, leos Encounter Details Date Type Department Care Team (Late st Contact Info) Description 06/01/2015 9:20 AM EST Office Visit Internal Medicine at [address] [address] Qian Power, [facility] [place] [address] Abdominal pain, LUQ (left upper quadrant); Left-sided thoracic back pain Social History Tobacco Use [...] Sign Reading Time Taken Comments Blood Pressure 117/73 06/01/2015 9:25 AM EST Pulse 73 06/01/2015 9:25 AM EST Temperature - - Respiratory Rate - - Oxygen Saturation 97% 06/01/2015 9:25 AM EST Inhaled Oxygen Concentration - - Weight 95.3 kg (210 lb) 06/01/2015 9:25 AM EST Height 177.8 cm (5' 10) 06/01/2015 9:25 AM EST Body Mass Index 30.13 06/01/2015 9:25 AM EST documented in this encounter Progress Notes * Qian Power, LEGAL RECORDS MANAGER - 06/01/2015 9:31 AM EST Images from the original note were not included. PCP: REJI NEWBERRY MD Chief Complaint Patient presents with ??? Back Pain walked into shelf, hurts inmiddle of back, leos SUBJECTIVE: Ken Mckeon is a 69 y.o. male who presents for back pain. He says that the pain is a burning pain with sitting or lying. Rates as 6/10. He hit his anterior chest on the edge of a counter. He has not pain there. - he reports that he will have burning pain that is worse with lying down or sitting in the car. His friends car is worse than his own. He has worse pain with lying on the right side. Pain is just below the the left shoulder blade. - 2 500 mg tylenol did not give significant help. - weight loss of about 7 lbs. Review of Systems Constitutional: Negative for fever, chills and fatigue. Gastrointestinal: Negative for nausea, vomiting, abdominal pain, diarrhea and constipation. Genitourinary: Positive for flank pain. Negative for dysuria, urgency, frequency, hematuria and discharge. Musculoskeletal: Positive for back pain. Negative for arthralgias and gait problem. Allergies Allergen Reactions ??? Penicillins Tongue swelling [...] 1 tablet by mouth daily. ??? Saw Gridley 500 mg capsule Take 500 mg by [...] Varicose veins of legs I83.93 ??? Anxiety F41.1 ??? Neck pain M54.2 ??? Insomnia G47.00 ??? Cervical radiculopathy M54.12 ??? Bilateral shoulder pain M25.511, M25.512 ??? Depression F32.9 ??? Back pain M54.9 ??? Ileitis K52.9 ??? Finger pain M79.646 ??? Cervical stenosis of spinal canal M48.02 ??? Peripheral neuropathy G62.9 ??? Numbness R20.0 ??? Urinary urgency R39.15 ??? Fatigue R53.83 ??? Right hand pain M79.641 OBJECTIVE: Filed Vitals: 06/01/15 0925 BP: 117/73 Pulse: 73 Height: 177.8 cm (5' 10) Weight: 95.255 kg (210 lb) SpO2: 97% PHYSICAL EXAM: Physical Exam Constitutional: He is oriented to person, place, and time. He appears well- developed and well-nourished. HENT: Head: Normocephalic and atraumatic. Eyes: Conjunctivae are normal. No scleral icterus. Cardiovascular: Normal rate, regular rhythm and normal heart sounds. Pulmonary/Chest: Effort normal and breath sounds normal. No respiratory distress. He has no wheezes. He has no rales. He exhibits tenderness. Abdominal: Neurological: He is alert and oriented to person, place, and time. Skin: Skin is warm and dry. Psychiatric: He has a normal mood and affect. His behavior is normal. Judgment and thought content normal. Vitals reviewed. ASSESSMENT & PLAN: Ken was seen today for back pain. Diagnoses and all orders for this visit: Abdominal pain, LUQ (left upper quadrant) Orders: - CBC (with Diff); Future - Comprehensive metabolic panel (non-fasting); Future - CBC (with Diff) - Comprehensive metabolic panel (non-fasting) - Hemogram - Differential, Automated - urinalysis Left-sided thoracic back pain Orders: - Urinalysis with reflex Culture - likely contusion, do not think fracture, and xray would not change plan - will check labs to make sure that kidney function is normal. - will check urinalysis as well for blood * Parag Tomas - 06/01/2015 9:25 AM EST ESTABLISHED PATIENT ACUTE VISIT Chief Complaint Patient presents with ??? Back Pain walked into shelf, hurts inmiddle of back, leos Pt is a 69 y.o. male with hx of osteoarthritis, anxiety, depression, peripheral neuropathy, and cervical stenosis of the spinal canal who presents for acute visit with back pain. 3-4 days bumped intocorner of object on his left flank with some pain which dissipated but now has pain under left shoulderblade and only present when sitting in car and laying down. Switches side when laying down to help alleviate pain. Takes 2 extra strength tylenol which helped somewhat pain is 6/10 and brought down to 4-5/10. Pain is burning sensation in car and in bed its more of a pressure pain. Pain radiates slightly to right when he switches positions. He feels moments feeling hot for 3-4 minutes. Has had 7 pound loss in 5 moths with more physical activity and eating healthier and skipping meals. Had surgery for neck this past summer due to associated loss of control of legs and walking like drunk person. Now better but loss of sensation in right arm. ROS: Constitutional - no fevers, chills, weight loss or gain, fatigue HEENT - No difficulty swallowing, hearing, No nasal congestion/postnasal drip Respiratory - No new SOB, MARTIN, wheeze, cough, sputum production Cardiovascular - No new CP, +occasional palpitations but not unchanged recently Gastrointestinal - No new abdominal pain, nausea, GERD, constipation, diarrhea, blood in stool - no new difficulty urinating, incontinence or dysuria. Musculoskeletal - No new weakness, pain at rest or with movement Skin - no new rashes All other systems negative Current Outpatient Prescriptions on File Prior to Visit Medication Sig Dispense Refill ??? metroNIDAZOLE (METROCREAM) 0.75 % Cream Apply topically 2 times daily. ??? ibuprofen (ADVIL) 200 mg tablet Take 400 mg by mouth every 6 hours as needed. ??? ALPRAZolam (XANAX) 0.25 mg tablet Take 0.25 mg by mouth 3 times daily as needed. ??? multivitamin (THERAGRAN) tablet Take 1 tablet by mouth daily. ??? Saw Gridley 500 mg capsule Take 500 mg by [...] Varicose veins of legs I83.93 ??? Anxiety F41.1 ??? Neck pain M54.2 ??? Insomnia G47.00 ??? Cervical radiculopathy M54.12 ??? Bilateral shoulder pain M25.511, M25.512 ??? Depression F32.9 ??? Back pain M54.9 ??? Ileitis K52.9 ??? Finger pain M79.646 ??? Cervical stenosis of spinal canal M48.02 ??? Peripheral neuropathy G62.9 ??? Numbness R20.0 ??? Urinary urgency R39.15 ??? Fatigue R53.83 ??? Right hand pain M79.641 Social History Narrative None on file Patient reported measures: Pain:6 Physical Health:Good Fall: PHQ-9 QUESTIONNAIRE SCORE ONLY (AMB) 03/16/2015 PHQ - 9 Score (Clinic) 0 (No Depression) Physical Exam: Filed Vitals: 06/01/15 0925 BP: 117/73 Pulse: 73 Height: 177.8 cm (5' 10) Weight: 95.255 kg (210 lb) SpO2: 97% General - No acute distress. Lungs - Clear to auscultation. Heart - RRR, S1,S2, no audible murmur, gallop or rub. No audible abdominal or carotid bruit. Abdomen/GI - Soft, nontender, normal active bowel sounds, neg hsm or masses. Extremities - No clubbing, cyanosis or edema. Pulses intact. Musculoskeletal some pain to palpation on left lower flank area of lowest rib. No pain to palpationon back. Assessment and Plan: We could consider this to be a muscle sprain give point tenderness. Although not bruising or obvious deformity on exam. He denies any lightheadedness or blood in urine making spleen or kidney damage unlikely but may be reasonable to get labs to rule out. He has a burning and pain in his back associated with position again lending credence to musculoskeletal pain. 1) Labs- urinalysis, BMP 2) rest and ibuprofen 3) Consider applying heat/ice. Tomas Tuttle, MS 4 20 of 25 minutes spent in direct [id number] counseling and the rest in taking history and planning management. documented in this encounter Plan of Treatment Upcoming Encounters Date Type Department Care Team (Late st Contact Info) Description 12/15/2024 11:30 AM EDT Office Visit [place] [address] Charline Ziegler MD [facility] [place] [address] documented as of this encounter Procedures Procedure Name Priority Date/Time Associated Diagnosis Comments URINALYSIS WITH REFLEX CULTURE Routine 06/01/2015 11:02 AM EST Left-sided thoracic back pain HEMOGRAM Routine 06/01/2015 10:04 AM EST Abdominal pain, LUQ (left upper quadrant) DIFFERENTIAL, AUTOMATED Routine 06/01/2015 10:04 AM EST Abdominal pain, LUQ (left upper quadrant) CBC (WITH DIFF) Routine 06/01/2015 10:04 AM EST Abdominal pain, LUQ (left upper quadrant) COMPREHENSIVE METABOLIC PANEL Routine 06/01/2015 10:04 AM EST Abdominal pain, LUQ (left upper quadrant) documented in this encounter Results * Urinalysis with reflex Culture (06/01/2015 11:02 AM EST) Glucose, Urine Dipstick Negative Negative mg/dL CERNER [...] Negative mcL CERNER MILLENNIUM Appearance, Urine Dipstick Clear Clear CERNER MILLENNIUM Specific [place] Urine Automated 1.020 1.002 - 1.030 CERNER MILLENNIUM Color, Urine Dipstick Yellow Yellow CERNER MILLENNIUM RBC, Urine <1 0 - 3 /HPF CERNER MILLENNIUM WBC, Urine <1 0 - 3 /HPF CERNER MILLENNIUM Reflex to Culture No CERNER MILLENNIUM Urine specimen (specimen) 06/01/2015 11:02 AM EST 06/01/2015 12:07 PM EST Narrative Resulting Agency Comment Spec In Lab Reji Newberry MD URINE ORDERABLES CERNER MILLENNIUM * Differential, Automated (06/01/2015 10:04 AM EST) Neutrophil % 50.5 % CERNER MILLENNIUM Neutrophil Absolute 2.70 1.50 - 6.30 x10(3)/mcL CERNER MILLENNIUM Lymph % 38.5 % CERNER MILLENNIUM Lymphocytes Abs 2.0 1.0 - 3.6 x10(3)/mcL CERNER MILLENNIUM Monocyte % 8.1 % CERNER MILLENNIUM Monocyte Abs 0.4 0.2 - 1.0 x10(3)/mcL CERNER MILLENNIUM Eos % 2.3 % CERNER MILLENNIUM Eosinophils Abs 0.1 0.0 - 0.5 x10(3)/mcL CERNER MILLENNIUM Basophil % 0.4 % CERNER MILLENNIUM Baso Absolute 0.0 0.0 - 0.2 x10(3)/mcL CERNER MILLENNIUM Immature Gran % 0.20 % CERN ER MILLENNIUM Comment: Immature granulocytes(IG's)percentage and absolute count will include metamyelocytes, myelocytes, and promyelocytes. Blood smears from CBCs yielding IG's will be scanned manually for concordance. If this scan disagrees with the automated IG or if promyelocytes are noted, a manual differential will be performed. Immature Gran Absolute 0.01 0.00 - 0.05 x10(3)/mcL CERNER MILLENNIUM Blood specimen (specimen) 06/01/2015 10:04 AM EST 06/01/2015 12:12 PM EST Narrative Resulting Agency Comment Spec In Lab Reji Newberry MD HEMATOLOGY ORDERABLE S CERNER MILLENNIUM * Hemogram (06/01/2015 10:04 AM EST) White Blood Cell 5.3 4.0 - 10.0 x10(3)/mcL CERNER MILLENNIUM Red Blood Cell 5.24 4.63 - 6.08 x10(6)/mcL CERNER MILLENNIUM Hemoglobin 15.8 13.7 - 17.5 gm/dL CERNER MILLENNIUM Hematocrit 46.1 40.0 - 51.0 % CERNER MILLENNIUM Mean Cell Volume 88.0 79.0 - 92.0 fL CERNER MILLENNIUM Mean Cell Hemoglobin 30.2 25.6 - 32.2 pg CERNER MILLENNIUM Mean Cell Hemoglobin Concentration 34.3 32.0 - 36.5 gm/dL CERNER MILLENNIUM Platelet 185 145 - 370 x10(3)/mcL CERNER MILLENNIUM RDW Standard Deviation 45.4 35.0 - 46.0 fL CERNER MILLENNIUM RDW coefficient of variation 14.1 10.9 - 14.4 % CERNER MILLENNIUM Mean Platelet Volume 10.1 9.0 - 12.0 fL CERNER MILLENNIUM Blood specimen (specimen) 06/01/2015 10:04 AM EST 06/01/2015 12:12 PM EST Narrative Resulting Agency Comment Spec In Lab Reji Newberry MD HEMATOLOGY ORDERABLE S CERNER MILLENNIUM * Comprehensive metabolic panel (non-fasting) (06/01/2015 10:04 AM EST) [facility] Signature Glucose 81 65 - 199 mg/dL CERNER MILLENNIUM Comment:Diabetes: >=200 mg/d L plus symptoms Blood Urea Nitrogen 17 10 - 20 mg/dL CERNER MILLENNIUM Creatinine 0.94 0.80 - 1.50 mg/dL CERNER MILLENNIUM Comment: Please note that the pediatric reference intervals supplied above were not validated at [facility]. Results from pediatric patients should be interpreted in conjunction to the patient's age, height and muscle mass. Sodium 139 135 - 145 mmol/L CERNER MILLENNIUM Potassium 4.3 3.5 - 5.0 mmol/L CERNER MILLENNIUM Comment: Please note: ??Patients with WBC >100,000 may have falsely elevated Potassium levels. ??For accurate Potassium quantification in these patients send serum separator tube (gold top) for subsequent determinations. ??Contact the Clinical Chemistry Laboratory if there are any questions. Chloride 102 98 - 107 mmol/L CERNER MILLENNIUM Carbon Dioxide 27 22 - 31 mmol/L CERNER MILLENNIUM Anion Gap 10 5 - 15 mmol/L CERNER MILLENNIUM Calcium 9.0 8.5 - 10.5 mg/dL CERNER MILLENNIUM Protein, Total 6.9 6.1 - 8.0 gm/dL CERNER MILLENNIUM Albumin 4.3 3.2 - 5.2 gm/dL CERNER MILLENNIUM Aspartate Aminotransferase 22 0 - 39 unit/L CERNER MILLENNIUM Alanine Aminotransferase 16 0 - 55 unit/L CERNER MILLENNIUM Alkaline Phosphatase 60 40 - 120 unit/L CERNER MILLENNIUM Bilirubin, Total 0.8 0.2 - 1.3 mg/dL CERNER MILLENNIUM Bilirubin, Direct 0.1 0.0 - 0.3 mg/dL CERNER MILLENNIUM Est Glomerular Filtration Rate >60 >=60 CERNER MILLENNIUM Comment: This estimated GFR (eGFR) value was [...] the following links into your internet browser. [email or web address] Blood specimen (specimen) 06/01/2015 10:04 AM EST 06/01/2015 12:12 PM EST Narrative Resulting Agency Comment Spec In Lab Reji Newberry MD CHEMISTRY ORDERABLES Performing Organization Address City/State/[facility] Co de Phone Number [facility] documented in this encounter Visit Diagnoses Diagnosis Abdominal pain, LUQ (left upper quadrant) Abdominal pain, left upper quadrant Left-sided thoracic back pain documented in this encounter Care Teams Supervisor Histology Relationship Specialty Start Date End Date Reji Newberry MD [facility] [place] [address] PCP - General 02/12/12 06/27/15 documented as of this encounter
--- OUTSIDE RECORDS SUMMARY | 2024-07-09 11:18 | XMS_ITS | Encounter Summary ---
Author Organization [facility] [place] [address] Care Team Providers Care Corporate Counselor Name Role Phone Reji Adams MD Primary Care Provider [phone] Reason for Visit * Reason Onset Date Comments Referral 08/04/2015 Encounter Details Date Type Department Care Team (Late st Contact Info) Description 08/04/2015 Telephone Internal Medicine at [place] [id number] Claudette Servin Referral Social History Tobacco Use Types Packs/Day [...] Telephone Encounter - Amrita Rodriguez RN - 08/04/2015 1:19 PM EST TC to Dr Casanova' office; left message with his alumnae secretary requesting assistance with patient's request for referral to Dr Lomeli. * Telephone Encounter - Amrita Rodriguez RN - 08/04/2015 12:51 PM EST He states he had a referral to Dr Pinto from Dr Casanova and didn't hear from them for 6 weeks so isn't going to make an appt there. He is confused about what he should do at this point. Sees Dr Cruz and Dr Casanova on 08/17. He wants to proceed with referral to Dr Lomeli instead of Dr Pinto. * Telephone Encounter - Claudette Servin - 08/04/2015 12:01 PM EST Patient is requesting a referral: Reason for this referral request: Right Hand surgery on 01/2015 and now has limited sensation in right hand, forearm and elbow Specific office or provider: Dr Lomeli- [facility] [place] [facility] Has the patient been seen for this symptoms: yes Who: Dr Adams and Dr Blankenship When: ongoing Caller and Relationship (if other than patient): Ken Best time to call back: karmen Ok to leave a message: yes Ok to send [facility] message: documented in this encounter Plan of Treatment Upcoming Encounters Date Type Department Care Team (Late st Contact Info) Description 12/15/2024 11:30 AM EDT Office [place] [address] Charline Ziegler MD [facility] [place] [address] documented as of this encounter Visit Diagnoses Not on filedocumented in this encounter Care Teams Corporate Counselor Relationship Specialty Start Date End Date Reji Adasm MD [facility] GENERAL [place] [address] PCP - General General Internal Medicine 07/13/15 documented as of this encounter
--- OUTSIDE RECORDS SUMMARY | 2024-07-09 11:18 | XMS_ITS | Encounter Summary ---
Author Organization [facility] [place] [address] Care Team Providers Care Casting Agent Name Role Phone Reji Adams MD Primary Care Provider [phone] Encounter Details Date Type Department Care Team (Late st Contact Info) Description 08/23/2015 Telephone Internal Medicine at [place] [phone] Amrita Rodriguez RN Social History Tobacco Use [...] Telephone Encounter - Amrita Rodriguez RN - 08/23/2015 4:52 PM EST Caller: patient Learning Needs Assessment Reviewed: Yes Subjective For past week, has felt palpitations, no sob, no fever/recent illness/dizziness, possibly related to stressors. Denies chest/jaw/shoulder pain or pressure. Is walking mile/day and doesn't notice themthen Objective/Assessment Symptom onset: week Location: chest Duration: minute or 2 Characteristics: intermittent, more in evening Aggravating factors: Relieving factors: n/a Timing: Severity: Pertinent Past Medical History: history of panic attacks, distant past Plan Intervention/Plan/ Follow Up: appt tomorrow with Qian; advised to have someone take him to ED if sx worsen or he feels chest pressure/shortness of breath documented in this encounter Plan of Treatment Upcoming Encounters Date Type Department Care Team (Late st Contact Info) Description 12/15/2024 11:30 AM EDT Office Visit [place] [address] Charline Ziegler MD [facility] [place] [address] documented as of this encounter Visit Diagnoses Not on filedocumented in this encounter Care Teams Casting Agent Relationship Specialty Start Date End Date Reji Adams MD [facility] GENER[place] [address] PCP - General General Internal Medicine 07/13/15 documented as of this encounter
--- OUTSIDE RECORDS SUMMARY | 2024-07-09 11:18 | XMS_ITS | Encounter Summary ---
Author Organization [facility] [place] [address] Care Team Providers Care Cross Country Coach Name Role Phone Ron Burns MD Primary Care Provider Encounter Details Date Type Department Care Team (Late st Contact Info) Description 07/07/2015 Transcribe [place] [phone] Ron Burns MD [address] [facility] [address] [place] [address] Social History Tobacco Use Types Packs/Day Years [...] EDT Office [place] [address] Charline Ziegler MD [facility] DR GASTROENTEROLOGY [place], [place] [id number] documented as of this encounter Visit Diagnoses Not on filedocumented in this encounter Care Teams Cross Country Coach Relationship Specialty Start Date End Date Ron Burns MD [address] [place] [address] PCP - General General Internal Medicine 06/28/15 documented as of this encounter
--- OUTSIDE RECORDS SUMMARY | 2024-07-09 11:18 | XMS_ITS | Encounter Summary ---
Author Organization [facility] Address [facility] [place] [address] Care Team Providers Care Flexo Press Operator Name Role Phone Reji Adams MD Primary Care Provider [phone] Reason for Visit * Reason Comments Right Hand Pain numbness Right Elbow Pain pain and numbness Encounter Details Date Type Department Care Team (Late st Contact Info) Description 09/04/2015 1:25 PM EST Office [place] [address] Bebeto Lomeli MD [facility] [place] [address] Right arm numbness Social History Tobacco Use [...] Sign Reading Time Taken Comments Blood Pressure 125/79 09/04/2015 12:59 PM EST Pulse 67 09/04/2015 12:59 PM EST Temperature - - Respiratory Rate - - Oxygen Saturation - - Inhaled Oxygen Concentration - - Weight 99.8 kg (220 lb) 09/04/2015 12:59 PM EST verbal Height 180.3 cm (5' 11) 09/04/2015 12:59 PM EST verbal Body Mass Index 30.68 09/04/2015 12:59 PM EST documented in this encounter Progress Notes * Alfredo [place]ise[place]T [place] - 09/04/2015 3:14 PM EST This 69-year-old gentleman comes in today for evaluation of right elbow pain and numbness from just proximal to the elbow down to this hand. He is right-hand dominant. We had seen him previously for numbness in the thumb, index, and long fingers, our feelings at that time was that it was likely coming from his neck more so than recurrent carpal tunnel syndrome. He did have electrical studies done which did show [id number] carpal tunnel syndrome. He also had cervical fusion done mostly for weakness in his legs that was done in summer. He had revision carpal tunnel releases done in summer, both surgeries were done by Dr. Casanova. This did not really seem to improve any of the numbness in his right hand and forearm. He states that the numbness gets progressively worse from the pinky to the thumb with the pinky being the least. He notes that he has numbness that will come from the palm up into the thenar web space. He also feels as if there is numbness in the forearm though to touch, he has normal sensation. He has not really noticed any weakness in the arm. He does have elbow pain, this is in the posterior aspect of the elbow. He has been seen by Dr. Blankenship and had electrical studies done. It was felt that there may be some residual C6 neuropathy. Also, he felt that there might be radial nerve irritation or radial tunnel syndrome. He then recommended that he see upper extremity specialist. PHYSICAL EXAMINATION: Examination today with Dr. Lomeli shows slightly decreased range of motion of the right elbow. Tinel's in the ulnar groove causes altered sensation in the radial side of his wrist. He has some tenderness of the anterior brachialis. He also has tenderness in the forearm over the radial nerve. Strength is 5/5 in the hand, specifically in radial nerve function. He has mild weakness with intrinsic testing, mildly positive Froment's. He has some decreased sensation in the forearm in C5-C6 dermatome when compared with the left arm. Two-point discrimination shows 6 mm in the lateral aspect of the ring finger and small finger; 10 mm in the thumb, index, and long fingers. Full range of motion of the fingers without any clicking, catching, or locking. The hand is well perfused. DIAGNOSTIC DATA: He has had repeat electrical studies done which show improved median motor latency. No thenar atrophy is noted. 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 No evidence of median or radial nerve compression at the elbow. IMPRESSION: Right arm numbness (elbow to hand), likely residual C6 radiculopathy and residual median neuropathy with possible radial nerve irritation. TREATMENT: The patient was advised that there is really no treatment for radial nerve irritation and we would recommend any cortisone injections. His cervical radiculopathy has been treated as has the median nerves and no further treatment is indicated there at this time. The patient questions about activities and there are no restrictions on activities from our standpoint. He was comfortable with this and he will follow up as needed if he has any change in his symptoms. documented in this encounter Plan of Treatment Upcoming Encounters Date Type Department Care Team (Late st Contact Info) Description 12/15/2024 11:30 AM EDT Office [place] [address] Charline Ziegler MD [facility] [place] [address] documented as of this encounter Visit Diagnoses Diagnosis Right arm numbness Disturbance of skin sensation documented in this encounter Care Teams Flexo Press Operator Relationship Specialty Start Date End Date Reji Adams MD [facility] [place] [address] PCP - General General Internal Medicine 07/13/15 documented as of this encounter
--- OUTSIDE RECORDS SUMMARY | 2024-07-09 11:18 | XMS_ITS | Encounter Summary ---
Author Organization [facility] [place] [address] Care Team Providers Care Poultry Processor Name Role Phone Reji Newberry MD Primary Care Provider [phone] Reason for Visit * Reason Comments Irregular Heart Beat Happening more ofte n in the past 2 weeks. Encounter Details Date Type Department Care Team (Late st Contact Info) Description 08/24/2015 2:00 PM EST Office Visit Internal Medicine at [address] [address] Qina Power, MARYBEL [facility] [place] [address] Irregular heartbeat Social History Tobacco Use Types Packs/Day Years [...] Sign Reading Time Taken Comments Blood Pressure 110/69 08/24/2015 2:02 PM EST lef t arm Pulse 66 08/24/2015 2:02 PM EST Temperature 36.3 ??C (97.4 ??F) 08/24/2015 2:02 PM ES T Respiratory Rate 14 08/24/2015 2:02 PM EST Oxygen Saturation 100% 08/24/2015 2:02 PM EST Inhaled Oxygen Concentration - - Weight 98.9 kg (218 lb) 08/24/2015 2:02 PM EST Height 179.1 cm (5' 10.5) 08/24/2015 2:02 PM ES T reported Body Mass Index 30.84 08/24/2015 2:02 PM EST documented in this encounter Progress Notes * Qian Power, SPECIAL EDUCATION ASSOCIATE - 08/24/2015 12:58 PM EST PCP: REJI NEWBERRY MD SUBJECTIVE: Ken Mckeon is a 69 y.o. male who presents for palpitations that are becoming more frequent. He denies any associated symptoms. Palpitations - he reports that he has history of them in late 80s- early 90s. He was having some panic attacks. - he denies any recent panic attacks, but a prolonged abnormal heart beat. They are much more frequent and happening in the last month. He reports that it is a flutter that occurs intermittently. He reports that it will occur intermittently for 30-45 minutes sometimes. Often occur when he is sitting. Resolves on its own. He has a lot of stress recently. - no new prescriptions, but recently started magnesium tablet, but palpitations were going on priorto starting magnesium. He started taking b12 supplements. - he walks a mile every day. He never has the palpitations with walking. Review of Systems Constitutional: Negative for fever and chills. Respiratory: Positive for shortness of breath. Cardiovascular: Negative for chest pain and leg swelling. Neurological: Negative for dizziness and light-headedness. Allergies Allergen Reactions ??? Penicillins Tongue swelling [...] 1 tablet by mouth daily. ??? Saw [place] 500 mg capsule Take 500 mg by [...] Right hand pain M79.641 OBJECTIVE: Filed Vitals: 08/24/15 1402 BP: 110/69 Pulse: 66 Temp: 36.3 ??C (97.4 ??F) TempSrc: Oral Resp: 14 Height: 179.1 cm (5' 10.5) Weight: 98.884 kg (218 lb) SpO2: 100% PHYSICAL EXAM: Physical Exam Constitutional: He is oriented to person, place, and time. He appears well- developed and well-nourished. No distress. HENT: Head: Normocephalic and atraumatic. Eyes: Conjunctivae are normal. Cardiovascular: Normal rate and normal heart sounds. An irregular rhythm present. No murmur heard. Occasional missed beat. No LE edema. Pulmonary/Chest: Effort normal and breath sounds normal. He has no wheezes. He has no rales. He exhibits no tenderness. Neurological: He is alert and oriented to person, place, and time. Skin: Skin is warm and dry. Psychiatric: He has a normal mood and affect. His behavior is normal. Judgment and thought content normal. Vitals reviewed. ASSESSMENT & PLAN: Ken was seen today for irregular heart beat. Diagnoses and all orders for this visit: Irregular heartbeat Orders: - EKG 12 Lead- showed PVC and RBBB and Left fasicular block (Review of prior EKGs shows no change except for now has PVC). - patient reported some sensations of irregular heart beat in clinic today. EKG showed occasional PVC. - discussed medication to decrease frequency and holter for further evaluation. Patient not interested at this time. - he is not having LE, shortness of breath or chest pain with symptoms or decreased activity. Most often felt at rest. Patient to continue to monitor and will let us know if get worse or other sxs develop. documented in this encounter Plan of Treatment Upcoming Encounters Date Type Department Care Team (Late st Contact Info) Description 12/15/2024 11:30 AM EDT Office Visit [place] [address] Charline Ziegler MD [facility] [place] [address] documented as of this encounter Procedures Procedure Name Priority Date/Time Associated Diagnosis Comments EKG 12-LEAD Routine 08/24/2015 2:38 PM EST Irregular heartbeat documented in this encounter Results * EKG 12 Lead (08/24/2015 2:38 PM EST) Ventricular rate 65 BPM MUSE SYSTEM Atrial Rate 65 BPM MUSE SYSTEM P-R Interval 174 ms MUSE SYSTEM QRS Duration 158 ms MUSE SYSTEM Q-T Interval 434 ms MUSE SYSTEM QTC Calculated (Bezet) 451 ms MUSE SYSTEM Calculated P [place] 75 degrees MUSE SYSTEM Calculated R [place] -61 degrees MUSE SYSTEM Calculated T [place] 31 degrees MUSE SYSTEM INTERPRETATION Sinus rhythm Occasional Premature ventricular complexes Right bundle branch block Left anterior fascicular block Bifascicular block Minimal voltage criteria for LVH, may be normal variant Septal infarct (cited on or before 11-NOV-2011) When compared with ECG of 16-MAR-2015 10:05, Premature ventricular complexes are now Present Questionable change in initial forces of Septal leads Confirmed by MD Bailey, Edward ([id number]) on 08/24/2015 5:05:37 PM MUSE SYSTEM 08/24/2015 2:38 PM EST 08/24/2015 5:05 PM EST Reji Newberry MD ECG ORDERABLES MUSE SYSTEM documented in this encounter Visit Diagnoses Diagnosis Irregular heartbeat Cardiac dysrhythmia, unspecified documented in this encounter Care Teams Poultry Processor Relationship Specialty Start Date End Date Reji Newberry MD [facility] [place] [address] PCP - General General Internal Medicine 07/13/15 documented as of this encounter
--- OUTSIDE RECORDS SUMMARY | 2024-07-09 11:18 | XMS_ITS | Encounter Summary ---
Author Organization [facility] Address [facility] [place] [address] Care Team Providers Care Coater Associate Name Role Phone Reji Adams MD Primary Care Provider [phone] Reason for Visit * Reason Comments Left Shoulder Pain Encounter Details Date Type Department Care Team (Late st Contact Info) Description 08/29/2015 8:30 AM EST Office [place] [address] Abbie Butcher PA [facility] [place] [address] Left shoulder pain Social History Tobacco Use Types [...] Sign Reading Time Taken Comments Blood Pressure 123/76 08/29/2015 8:12 AM EST Pulse 68 08/29/2015 8:12 AM EST Temperature - - Respiratory Rate - - Oxygen Saturation - - Inhaled Oxygen Concentration - - Weight 99.8 kg (220 lb) 08/29/2015 8:12 AM EST v caitlin Height 179.1 cm (5' 10.5) 08/29/2015 8:12 AM ES T verbal Body Mass Index 31.12 08/29/2015 8:12 AM EST documented in this encounter Progress Notes * Abbie Butcher PA - 08/29/2015 8:53 AM EST PATIENT NAME: Ken Mckeon AGE: 69 y.o. MR#: [id number] DATE OF VISIT: 08/29/2015 DATE OF INJURY/ONSET: Chronic STAFF: Dr. Dunn CHIEF COMPLAINT: follow up for left shoulder pain HISTORY OF PRESENT ILLNESS: Mr. Mckeon is a 69 y.o. year old male who comes into clinic today for follow up regarding the left shoulder. I saw this patient in 2013 for this complaint. He had an MRI at that time that showed some rotator cuff tendinopathy in addition to some subluxation of the proximalbiceps tendon. He had a subacromial cortisone injection and states that this significantly helps with his symptoms. He presents today with worsening left shoulder pain. He has not had any new injuries. He finds that his pain is over the anterior aspect of the shoulder. He would like to proceed witha repeat injection if indicated. PHYSICAL EXAM: Mr. Mckeon is alert and oriented. He appears in no acute discomfort and is resting comfortably in the exam room. Inspection: No erythema, ecchymosis, or swelling over the shoulder. Palpation: He has some pain over the proximal biceps tendon and also has pain over the anterior subacromial space. Nontender over the acromioclavicular joint. ROM: Forward Flexion: 160?? active External Rotation: 50?? active Internal Rotation: Reaches to L5 Strength: 5/5 rotator cuff strength in all planes including empty can. Orthopedic testing: Positive impingement testing. Negative horizontal adduction. Positive speed's, negative Yergason's. Neurovascular: He has intact sensation over the shoulder. No motor deficits are appreciated. Hand is well perfused. RADIOLOGICAL STUDIES: X-rays of the shoulder show no acute injuries. There is a small focus of calcific tendinopathy towards the posterior aspect of the rotator cuff. He also has acromioclavicular joint arthritis as well as some mild degenerative changes at the glenohumeral joint. His previous MRI from 2014 was also reviewed. 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 He would like to proceed with a subacromial injection today. Please see my injection note below. If his symptoms persist despite this injection it would be worthwhile to repeat his MRI. He will return for follow up as needed for his shoulder depending on his response to this injection. The sharon ent understands to contact us if they have any other questions or concerns. We also briefly discussed his right arm symptoms. He states that he has had persistent tingling andsensitivity into his thumb and index fingers. He has had cervical spine surgery and he believes that this involved fusion at C5-C6. He also has had carpal tunnel release. He states that he had nerve conduction studies following his spinal fusion and was told that he needed to see an upper extremityspecialist. He was seen by Dr. Rodriguez at [facility] and had an MRI of his elbow. He statesthat he was told that there may be radial nerve entrapment, but based on his MRI findings it appears as though there was some fluid around the ulnar nerve. He states that he does get symptoms in the ulnar nerve distribution with elbow flexion. He did not have any sensory or motor findings consistent with radial nerve pathology on exam today. We do not have his nerve conduction studies available for review. He has seen Dr. Lomeli in the past and would like to follow-up with Dr. Lomeli to discuss whether any additional intervention would be needed for his current symptoms. We will see about obtaining his nerve conduction studies and we'll schedule this follow-up appointment. The above documentation was completed using [employer] voice recognition software. PROCEDURE NOTE: Left shoulder SUBACROMIAL BURSA INJECTION A time-out was performed and the left shoulder was confirmed to be the site of injection. The patient was confirmed to have no allergies to betadine, local anesthetics, or corticosteroids. The patient was reminded that blood glucose can be transiently elevated by the corticosteroid injection. The patient was counseled about the potential risks of the procedure, including infection, bleeding, incomplete relief of symptoms, and the theoretical risk of tendon rupture with repeated injections. I also discussed with the patient that cortisone is not healthy for muscle tendons or cartilage and thatthere is an increased risk with repeated injections. The skin was prepped widely over the posterolateral of the shoulder with Betadine swabs three times. Then, using sterile technique, a solution consisting of 4cc 2% lidocaine and 1 cc Kenalog 40 (40 mg) was injected just inferior and medial to the posterolateral corner of the acromion and directed toward the coracoid process using a 22 gauge needle. The needle was felt to slide just inferior to the acromion and the injection flowed freely into the subacromial space. The skin was cleaned with alcohol and a Band-Aid was applied. The patient tolerated the procedure well. documented in this encounter Plan of Treatment Upcoming Encounters Date Type Department Care Team (Late st Contact Info) Description 12/15/2024 11:30 AM EDT Office [place] [address] Charline Ziegler MD [facility] [place] [address] documented as of this encounter Visit Diagnoses Diagnosis Left shoulder pain Pain in joint, shoulder region documented in this encounter Administered Medications Inactive Administered Medications - up to 3 most recent administrations Medication Order MAR Action Action Date Dose Rate Site lidocaine (XYLOCAINE) 20 mg/mL (2 %) injection 80 mg 80 mg, Subcutaneous, ONCE, 1 dose, On Fri08/29/15 at 0915, In-Office injection into the subacromial space of the shoulder., Routine Given 08/29/2015 8:55 AM EST 80 mg triamcinolone acetonide (KENALOG-40) injection 40 mg 40 mg, Intra-articular, ONCE, 1 dose, On Fri08/29/15 at 0915, Routine Given 08/29/2015 8:55 AM EST 40 mg documented in this encounter Care Teams Coater Associate Relationship Specialty Start Date End Date Reji Adams MD [facility] [place] [address] PCP - General General Internal Medicine 07/13/15 documented as of this encounter
--- OUTSIDE RECORDS SUMMARY | 2024-07-09 11:18 | XMS_ITS | Encounter Summary ---
Author Organization [facility] Address [facility] [place] [address] Care Team Providers Care Cook Manager Name Role Phone Reji Adams MD Primary Care Provider [phone] Reason for Visit * Reason Comments Pre-op Exam carpal tunnel surgur y on right wrist on . 03/21 Encounter Details Date Type Department Care Team (Late st Contact Info) Description 03/16/2015 10:05 AM EDT Office Visit Internal Medicine at [place] [id number] Reji Adams MD [facility] [place] [address] Pre-op evaluation Discharge Disposition: Home Social History Tobacco Use [...] Sign Reading Time Taken Comments Blood Pressure 103/68 03/16/2015 9:50 AM EDT Pulse 65 03/16/2015 9:50 AM EDT Temperature 36.7 ??C (98 ??F) 03/16/2015 9:50 AM EDT Respiratory Rate - - Oxygen Saturation 99% 03/16/2015 9:50 AM EDT Inhaled Oxygen Concentration - - Weight 96.6 kg (213 lb) 03/16/2015 9:50 AM EDT Height 179.1 cm (5' 10.5) 03/16/2015 9:50 AM ED T Body Mass Index 30.13 03/16/2015 9:50 AM EDT documented in this encounter Progress Notes * Reji Adams MD - 03/16/2015 9:51 AM EDT Consult request from: Neurosurgery Planned surgery: R carpal tunnel release Reason for Consult: We are seeing at the request of Dr. Salvador for the evaluation of pre-op risk management - . I have reviewed the available records, interviewed and examined the patient. History of Present Illness/Description of Symptoms: Pt here for pre-op exam for carpal tunnel release on 03/21. Underwent cervical fusion in January without complications. No problems with anesthesia, no bleeding or clotting difficulties. REVIEW OF SYSTEMS General: No recent fevers, +weight change post op because had to eat thin foods. HEENT: no vision or hearing changes, tinnitus, headaches. CVS: no chest pain , palpitations, orthopnea Respiratory: no SOB, dyspnea, cough, wheezing, hemoptysis GI: No constipation,/diarrhea, N/V, abdominal pain, or melena. : Denies dysuria, incontinency, hematuria Musculoskeletal: No arthritis or muscle pain Endocrine: Denies cold intolerance, weight changes Heme: no easy bruising, no bleeding, no noted LAD Skin: no new rashes or lesions Psych: no hx of depression RISK ASSESSMENT via 2007 ACC/AHA guidelines: Surgery is Emergent: [] Yes [x]No Patient has active cardiac condition: [] Yes [x] No -[]recent IN -[]USA -[]Class IV CHF -[]Decompensated HF -[]High grade heart block -[]SVT with HR >100 -[]Symptomatic bradycardia -[]V tach Surgical risk is: []High (Vascular) []Intermediate (peritoneal, thoracic, CEA, H&N, ortho, prostate) [x]Low (endoscopic, cataracts, breast, ambulatory) Functional capacity is: []<4 Mets (1 met - can take care of self (feeding), dress or use toilet) (4 mets - can walk up a flight of steps or hill) [x]4-9 METS (4-10 mets - can do heavy work around the house such as scrubbing floors or lifting or moving heavyfurniture) []10 METs or greater. (>10 mets - can participate in strenuous sports such as swimming, singles tennis, football, basketball or skiing) No. of Risk factors: [x]None []1-2 [] 3 or more -[] high risk surgery: peritoneal, thoracic, suprainguinal vascular -[] Hx of ischemic heart disease -[] Hx of CHF -[] Hx of CV disease -[] Preop creatinine >2.0 -[] Diabetes Past Medical/Surgical History: Patient Active Problem List Diagnosis ??? Right hand pain ??? Peripheral neuropathy [...] knee replacement TKR Right knee in 2007 Significant Family History: Family History Problem Relation Age of Onset ??? Cancer Mother bone ??? Diabetes Father ??? Cancer Father testicular Social History: History Substance Use Topics ??? Smoking status: Never Smoker ??? Smokeless tobacco: Current User Types: Chew Comment: 3 cans/ week. ??? Alcohol Use: 0.6 oz/week 1 Cans of beer per week Medications: Current Outpatient Prescriptions on File Prior [...] 1 tablet by mouth daily. ??? Saw [place] 500 mg capsule Take 500 mg by mouth daily. ??? Mavis Extract 500 mg Cap Take 1 capsule by mouth daily. ??? naproxen sodium (ALEVE) 220 mg tablet Take 220 mg by mouth as needed. No current facility-administered medications on file prior to visit. Allergies: Allergies Allergen Reactions ??? Penicillins Tongue swelling PHYSICAL EXAM: BP 103/68 mmHg Pulse 65 Temp(Src) 36.7 ??C (98 ??F) Ht 179.1 cm (5' 10.5) Wt 96.616 kg (213 lb) BMI 30.12 kg/m2 SpO2 99% Constitutional/General: NAD, alert, talkative Skin: [place],warm and dry. No rashes or lesions noted. HEENT: PERRLA, EOMI, Neck supple without lymphadenopathy; no JVD; no carotid bruits. Cardiac: Regular rate and rhythm, No murmur, rub or gallop. Respiratory: Lungs clear to auscultation; no wheezes rales or ronchi. ABD: + BS; soft, non-tender, non-distended; no organomegaly. Extremities: No edema, cyanosis, clubbing. 2+ pedal pulses bilat, Calves supple Neuro: A & O X 3. Cranial nerves II-XII intact; strength 5/5 right and left upper and lower extremities. sensation to light touch in ext intact Lab/Diagnostics: No results found for this or any previous visit (from the past 24 hour(s)). EKG: bifasicular block, no acute changes. ASSESSMENT: Ken Mckeon is a 69 y.o. male who is low risk for a risk procedure and no further cardiac risk assessment required prior to proceeding with planned procedure. RECOMMENDATIONS: 1. Risk assessment: Per Revised Walsh Cardiac Risk Index, risk of adverse event is -[x] No risk factors: 0.4% risk -[] 1 RF: 1% risk -[] 2 RF: 2.4% risk -[] 3 or more RF: 5.4% risk 2. Pre-operative testing recommendation: -[]None -[x]ECG - No acute changes. -[]TTE -[]DSE -[]Nuc stress -[]Cardiac cathterization with potential revascularization 3. Reason to delay elective surgery is: -[] Present (Unstable angina, Stage III HTN >180/>110, severe , BMS last 4-6 weeks, LUIS ANTONIO last 12 mos.) -[x] Absent 4. Interventions indicated for perioperative risk reduction: -[x] None -[] Beta manuel indicated with target HR of 65 (already on Bb, Vascular surgery, Intermediate riskwith CAD or multiple risk factors) -[] Statin indicated (CAD or equivalent) restart statin therapy 5. Postoperative Surveillance: -[x] None -[] Consider intraoperative JACKELINE -[] post-op ECG CBC and BMP ordered due to recent surgery documented in this encounter Plan of Treatment Upcoming Encounters Date Type Department Care Team (Late st Contact Info) Description 12/15/2024 11:30 AM EDT Office Visit [place] [address] Charline Ziegler MD [facility] [place] [address] documented as of this encounter Procedures Procedure Name Priority Date/Time Associated Diagnosis Comments BASIC METABOLIC PANEL Routine 03/16/2015 10:30 AM EDT Pre-op evaluation HEMOGRAM Routine 03/16/2015 10:29 AM EDT Pre-op evaluation DIFFERENTIAL, AUTOMATED Routine 03/16/2015 10:29 AM EDT Pre-op evaluation CBC (WITH DIFF) Routine 03/16/2015 10:29 AM EDT Pre-op evaluation EKG 12-LEAD Routine 03/16/2015 10:05 AM EDT Pre-op evaluation documented in this encounter Results * Basic Metabolic Panel (non-fasting) (03/16/2015 10:30 AM EDT) [facility] Glucose 87 65 - 199 mg/dL [facility] Comment:Diabetes: >=200 mg/d L plus symptoms Blood Urea Nitrogen 12 10 - 20 mg/dL CERNER MILLENNIUM Creatinine 1.06 0.80 - 1.50 mg/dL CERNER MILLENNIUM Comment: Please note that the pediatric reference intervals supplied above were not validated at [facility]. Results from pediatric patients should be interpreted in conjunction to the patient's age, height and muscle mass. Sodium 141 135 - 145 mmol/L CERNER MILLENNIUM Potassium 4.6 3.5 - 5.0 mmol/L CERNER MILLENNIUM Comment: [...] - 31 mmol/L CERNER MILLENNIUM Anion Gap 12 5 - 15 mmol/L CERNER MILLENNIUM Calcium 9.3 8.5 - 10.5 mg/dL CERNER MILLENNIUM Est Glomerular Filtration Rate [...] the following links into your internet browser. [email or web address]/DHnkdep [email or web address] Blood specimen (specimen) 03/16/2015 10:30 AM EDT 03/16/2015 12:18 PM EDT Narrative Resulting Agency Comment Spec In Lab Reji Adams MD CHEMISTRY ORDERABLES CERNER MILLENNIUM * Differential, Automated (03/16/2015 10:29 AM EDT) Neutrophil % 61.8 % CERNER MILLENNIUM Neutrophil Absolute 3.54 1.50 - 6.30 x10(3)/mcL CERNER MILLENNIUM Lymph % 29.0 % CERNER MILLENNIUM Lymphocytes Abs 1.7 1.0 - 3.6 x10(3)/mcL CERNER MILLENNIUM Monocyte % 6.6 % CERNER MILLENNIUM Monocyte Abs 0.4 0.2 - 1.0 x10(3)/mcL CERNER MILLENNIUM Eos % 2.1 % CERNER MILLENNIUM Eosinophils Abs 0.1 0.0 - 0.5 x10(3)/mcL CERNER MILLENNIUM Basophil % 0.3 % CERNER MILLENNIUM Baso Absolute 0.0 0.0 [...] 0.05 x10(3)/mcL CERNER MILLENNIUM Blood specimen (specimen) 03/16/2015 10:29 AM EDT 03/16/2015 12:18 PM EDT Narrative Resulting Agency Comment Spec In Lab Reji Adams MD HEMATOLOGY ORDERABLE S CERNER MILLENNIUM * Hemogram (03/16/2015 10:29 AM EDT) White Blood Cell 5.7 4.0 - 10.0 x10(3)/mcL CERNER MILLENNIUM Red Blood Cell 4.82 4.63 - 6.08 x10(6)/mcL CERNER MILLENNIUM Hemoglobin 14.7 13.7 - 17.5 gm/dL CERNER MILLENNIUM Hematocrit 42.6 40.0 - 51.0 % CERNER MILLENNIUM Mean Cell Volume 88.4 79.0 - 92.0 fL CERNER MILLENNIUM Mean Cell Hemoglobin 30.5 25.6 - 32.2 pg CERNER MILLENNIUM Mean Cell Hemoglobin Concentration 34.5 32.0 - 36.5 gm/dL CERNER MILLENNIUM Platelet 194 145 - 370 x10(3)/mcL CERNER MILLENNIUM RDW Standard Deviation 45.6 35.0 - 46.0 fL CERNER MILLENNIUM RDW coefficient of variation 14.0 10.9 - 14.4 % CERNER MILLENNIUM Mean Platelet Volume 10.8 9.0 - 12.0 fL CERNER MILLENNIUM Blood specimen (specimen) 03/16/2015 10:29 AM EDT 03/16/2015 12:18 PM EDT Narrative Resulting Agency Comment Spec In Lab Reji Adams MD HEMATOLOGY ORDERABLE S Performing Organization Address City/[facility] Co de Phone Number [facility] * EKG 12 Lead (03/16/2015 10:05 AM EDT) Ventricular rate 66 BPM MUSE SYSTEM Atrial Rate 66 BPM MUSE SYSTEM P-R Interval 162 ms MUSE SYSTEM QRS Duration 152 ms MUSE SYSTEM Q-T Interval 426 ms MUSE SYSTEM QTC Calculated (Bezet) 446 ms MUSE SYSTEM Calculated P [place] 78 degrees MUSE SYSTEM Calculated R [place] -67 degrees MUSE SYSTEM Calculated T [place] 31 degrees MUSE SYSTEM INTERPRETATION Normal sinus rhythm Right bundle branch block Left anterior fascicular block Bifascicular block Minimal voltage criteria for LVH, may be normal variant Possible Septal infarct (cited on or before 11-NOV-2011) When compared with ECG of 24-JAN-2015 15:39, No significant change was found Confirmed by Alma Martinez MDence ([id number]) on 03/17/2015 1:24:00 PM MUSE SYSTEM 03/16/2015 10:0 5 AM EDT 03/17/2015 1:24 PM EDT Reji Adams MD ECG ORDERABLES Performing Organization Address City/[facility] Co de Phone Number MUSE SYSTEM documented in this encounter Visit Diagnoses Diagnosis Pre-op evaluation Preoperative examination, unspecified documented in this encounter Care Teams Cook Manager Relationship Specialty Start Date End Date Reji Adams MD [facility] [address] PCP - General 02/12/12 06/27/15 documented as of this encounter
--- OUTSIDE RECORDS SUMMARY | 2024-07-09 11:18 | XMS_ITS | Encounter Summary ---
Author Organization [facility] [place] [address] Care Team Providers Care Welt Wheeler Name Role Phone Reji Adams MD Primary Care Provider [phone] Encounter Details Date Type Department Care Team (Late st Contact Info) Description 11/01/2014 External Results [place] [phone] Michael Monreal MD [facility] [place] [address] Social History Tobacco Use Types Packs/Day Years [...] 11:30 AM EDT Office [place] [phone] Charline Ziegler MD [facility] [place] [address] documented as of this encounter Procedures Procedure Name Priority Date/Time Associated Diagnosis Comments EMG SCAN Routine 11/01/2014 documented in this encounter Results * Scan Doc: EMG (11/01/2014) Michael Monreal MD MEDIA MGR SCAN EXT O RDR/RSLT documented in this encounter Visit Diagnoses Not on filedocumented in this encounter Care Teams Welt Wheeler Relationship Specialty Start Date End Date Reji Adams MD [facility] [place] [address] PCP - General 02/12/12 06/27/15 documented as of this encounter
--- OUTSIDE RECORDS SUMMARY | 2024-07-09 11:18 | XMS_ITS | Encounter Summary ---
Author Organization [facility] Address [facility] [place] [address] Care Team Providers Care Pricing Strategist Name Role Phone Reji Adams MD Primary Care Provider [phone] Encounter Details Date Type Department Care Team (Latest Contact Info) Description 08/29/2015 7:15 AM EST - 08/29/2015 11:59 PM [facility] Hospital Encounter XRay at [address] [place] [address] Frantz Dunn MD [facility] [place] [address] Left shoulder pain Discharge Disposition: Home Social History [...] tablet Take 1 tablet by mouth daily. ifyrlkrv-lzl-[id number]- vit D3 750 mg-125 mg -600 mg Tablet Take 2 tablets by mouth daily. 05/01/2016 metroNIDAZOLE (METROCREAM) 0.75 % Cream Apply topically as needed. Reported on 09/19/2016 09/19/2016 ibuprofen (ADVIL) 200 mg tablet Take 400 mg by mouth every 6 hours as needed. 05/08/2018 ALPRAZolam (XANAX) 0.25 mg tablet Take 0.25 mg by mouth 3 times daily as needed. 03/19/2018 Saw [place] 500 mg capsule Take 500 mg by [...] 11:30 AM EDT Office [place] [address] Charline Ziegler MD [facility] [place] [address] documented as of this encounter Procedures Procedure Name Priority Date/Time Associated Diagnosis Comments XR SHOULDER LEFT Routine 08/29/2015 7:34 AM EST Left shoulder pain documented in this encounter Results * XR Shoulder Left (GENERIC) (08/29/2015 7:34 AM EST) Anatomical Region Laterality Modality Shoulder Left Digital Radiogra phy Impressions 08/29/2015 8:55 AM EST IMPRESSION: 1. Degenerative changes at the glenohumeral joint and AC joint. 2. Calcific tendinopathy. Narrative 08/29/2015 8:55 AM EST EXAMINATION: XR SHOULDER LEFT CLINICAL HISTORY: LEFT SHOULDER PAIN TECHNIQUE: Four views left shoulder. COMPARISON: None. FINDINGS: No fracture or dislocation. The glenohumeral joint space is reasonably well preserved. There are osteophytes along the margin of the glenoid consistent with degenerative joint disease. Degenerative changes are also present at the AC joint. A small focus of soft tissue calcification is present adjacent to the greater tuberosity suggesting calcific tendinopathy. Procedure Note Jay Tavera MD - 08/29/2015 EXAMINATION: XR SHOULDER LEFT CLINICAL HISTORY: LEFT SHOULDER PAIN TECHNIQUE: Four views left shoulder. COMPARISON: None. FINDINGS: No fracture or dislocation. The glenohumeral joint space is reasonablywell preserved. There are osteophytes along the margin of the glenoidconsistent with degenerative joint disease. Degenerative changes are also present at theAC joint. A small focus of soft tissue calcification is present adjacent tothe greater tuberosity suggesting calcific tendinopathy. IMPRESSION IMPRESSION: 1. Degenerative changes at the glenohumeral joint and AC joint. 2. Calcific tendinopathy. Frantz Dunn MD IMG DX ORDERABLES documented in this encounter Visit Diagnoses Diagnosis Left shoulder pain Pain in joint, shoulder region documented in this encounter Care Teams Pricing Strategist Relationship Specialty Start Date End Date Reji Adams MD [facility] [place] [address] PCP - General Internal Medicine 07/13/15 documented as of this encounter
--- OUTSIDE RECORDS SUMMARY | 2024-07-09 11:18 | XMS_ITS | Encounter Summary ---
Author Organization Counts Include [facility] Address [facility] [place] [address] Care Team Providers Care Vacuum Cooker Operator Name Role Phone Reji Adams MD Primary Care Provider Reason for Referral * Consultation (Routine) - Closed Specialty Diagnoses / Procedures Referred By Duglas arizmendi Referred To Contact Neurology Diagnoses Numbness Ewa Contreras MD [facility] [place] [address] [facility] [address] [place] [address] Referral ID Status Reason Start Date Expiration Date V isits Requested Visits Authorized [id number] Closed Consult, Test & Treat 09/26/2014 09/26/2015 1 1 Reason for Visit * Reason Comments Dizziness Fatigue sleeping for 7 hrs, feeling like in a fog when gets up Other dry mouth, right hermosillo d thumb and next two fingers numb Encounter Details Date Type Department Care Team (Late st Contact Info) Description 09/26/2014 10:45 AM EST [place] [address] Ewa Contreras MD [facility] [place] [address] Peripheral neuropathy (Primary Dx); Numbness; Urinary urgency; Fatigue Discharge Disposition: Home Social History Tobacco [...] Sign Reading Time Taken Comments Blood Pressure 117/76 09/26/2014 11:20 AM EST Pulse 83 09/26/2014 11:20 AM EST Temperature 36.7 ??C (98.1 ??F) 09/26/2014 11:[address] Respiratory Rate - - Oxygen Saturation 100% 09/26/2014 11:18 AM EST Inhaled Oxygen Concentration - - Weight 102.1 kg (225 lb) 09/26/2014 11:13 AM EST Height 180.3 cm (5' 11) 09/26/2014 11:13 AM EST Body Mass Index 31.38 09/26/2014 11:13 AM EST documented in this encounter Patient Instructions * Patient Instructions* Ewa Contreras MD - 09/26/2014 12:07 PM EST Please make it to your follow up appointments. Call if any symptoms worsen. documented in this encounter Progress Notes * Shante Benavidez MD - 09/26/2014 2:33 PM EST The case was discussed at the time of the visit or immediately after the visit. The assessment and plan were formulated in discussion with me and I agree with them as documented. I have reviewed the history, physical exam, assessment and plan with the resident. Major issues discussed today: Unsteadiness and numbness in R hand; he seems to have developed a peripheral neuropathy Plan: Metabolic work-u pfor peripheral neuropathy; EMG for R hand numbness * Ewa Contreras MD - 09/26/2014 11:13 AM EST Subjective: Patient ID: Ken Cole is a 68 y.o. male. Other Associated symptoms include arthralgias, fatigue and neck pain. Pertinent negatives include no chest pain, chills, congestion, coughing, diaphoresis, fever or sore throat. Mr. Cole is a 68 yy G w/ cervical spine stenosis, followed at the pain clinic, is usually healthy, seen in July for a URI, nml thyroid function in apr 2014, who is here for fatigue and dizziness. Mr. Cole is taking supplements like saw palmetoo, ha extra, and takes xanax on occasion. He does take NSAIDs (Advil and Aleve) as needed for pain. Dizziness is more an an instability has been prevalent for the last week or so. He believes at times his gait is off, he closes he eyes in the shower he feels unstable on his feet. No falls. It has increased in frequency to maybe 2-3 x a day and before this used to be 2-3x a week. Fatigue has been preset, over the last week, usually sleeps 8 hours, but some nights 7 hours. Doesn't wake up take on the world feels tired. No generalized mylagias or arthralgias, no fever, does feel very warm during day, but has forced hot air. Feels warm at night, no sweating. He has been peeing a lot, having urinary hesitancy, very dry mouth mainly at night but again the dry mouth is not a nightly occurrence, it happens once or twice. He has had increase in voiding more often, urgency is present, not a lot of quantity, the urge to go is much more frequent, that has been present for 2 months. Dry mouth is infrequent, it is present for a month. Maybe occuring 3x a week. The mouth feels like there is paste in his mouth. No dark tarry, stools, stools tend to be irregular but more recently have been better. Father had diabetes, his fasting POC was 90 in October 2013, no change in weight Review of Systems Constitutional: Positive for fatigue. Negative for fever, chills and diaphoresis. HENT: Negative for congestion, rhinorrhea and sore throat. Respiratory: Positive for shortness of breath (not new). Negative for cough. Cardiovascular: Positive for leg swelling (long time 2/2 R knee surgeries and varicose vein removal). Negative for chest pain. Gastrointestinal: Negative for diarrhea, constipation and blood in stool. Genitourinary: Positive for dysuria, urgency and frequency. Musculoskeletal: Positive for arthralgias and neck pain. Neurological: Occasional unsteady on his feet Filed Vitals: 09/26/14 1120 BP: 117/76 Pulse: 83 Temp: 36.7 ??C (98.1 ??F) Objective: Physical Exam Constitutional: He is oriented to person, place, and time. He appears well- developed and well-nourished. HENT: Mouth/Throat: Oropharynx is clear and moist. TM clear Eyes: Conjunctivae and EOM are normal. Pupils are equal, round, and reactive to light. No conjunctival pallor Cardiovascular: Normal rate, regular rhythm and intact distal pulses. No murmur heard. Pulmonary/Chest: Effort normal and breath sounds normal. No respiratory distress. He has no wheezes. Lymphadenopathy: He has no cervical adenopathy. Neurological: He is alert and oriented to person, place, and time. Has decreased pin prick sensation over dorsum of feet and decreased vibratory sense to at minimum medal malleolus b/l.No sensation over R knee 2/2 multiple surgeries, vibratory sensation present overL knee cap, propriosensation in tact, no pronator drift, neg rhomberg, neg ALFONSO 5/5 strength R hand decreased pinprick sensation thumb, pointer finger and middle finger 5/5strenght Skin: Skin is warm and dry. Assessment and Plan: Mr. Cole is a 68 yy G w/ pmhx of cervical stenosis, who is here for an 1/2 hour appointment with several complaints. He has what is suspicious for peripheral neuropathy in his feet, he may have carpal tunnel in his right hand versus something farther up, his fatigue is unclear, but will check metabolic and anemia labs, and he will also be checked for urinary infection given hx but will likely be BPH. He needs to be soon very quickly after the EMGs to address his active medical concerns. Pending peripheral neuro work up, he may require a formal neuro consult. Additionally, will have him return to clinic for f/u of all the labs and studies instead of a phone call or letter. Peripheral neuropathy SPEP/UPEP B12/folate hba1c Cbc BMP RPR Crp Numbness Possible carpal tunnel versus stenosis farther up the track - EMG ordered Urinary urgency U/a micro and urine culture Likely bph Fatigue Unclear etiology, will f/u labs documented in this encounter Miscellaneous Notes * Assessment & Plan Note - Ewa Contreras MD - 09/26/2014 12:32 PM EST Associated Problem(s): Fatigue (Resolved 09/30/2016) Unclear etiology, will f/u labs * Assessment & Plan Note - Ewa Contreras MD - 09/26/2014 12:31 PM EST Associated Problem(s): Urinary urgency U/a micro and urine culture Likely bph * Assessment & Plan Note - Ewa Contreras MD - 09/26/2014 12:26 PM EST Associated Problem(s): Numbness (Resolved 01/27/2020) Possible carpal tunnel versus stenosis farther up the track - EMG ordered * Assessment & Plan Note - Ewa Contreras MD - 09/26/2014 11:58 AM EST Associated Problem(s): Peripheral neuropathy SPEP/UPEP B12/folate hba1c Cbc BMP RPR Crp documented in this encounter Plan of Treatment Upcoming Encounters Date Type Department Care Team (Late st Contact Info) Description 12/15/2024 11:30 AM EDT Office [place] [address] Charline Ziegler MD [facility] [place] [address] Scheduled Referrals Name Type Priority Associated Diagnoses Orde r Schedule Referral to Neurology Outpatient Referral Routine Numbness Ordered: 09/26/2014 documented as of this encounter Procedures Procedure Name Priority Date/Time Associated Diagnosis Comments HEMOGRAM Routine 09/26/2014 12:29 PM EST Peripheral neuropathy DIFFERENTIAL, AUTOMATED Routine 09/26/2014 12:29 PM EST Peripheral neuropathy SYPHILIS ANTIBODY SCREEN WITH REFLEX Routine 09/26/2014 12:29 PM EST Peripheral neuropathy PROTEIN ELECTROPHORESIS, URINE, RANDOM Routine 09/26/2014 12:29 PM EST Peripheral neuropathy URINALYSIS WITH REFLEX CULTURE Routine 09/26/2014 12:29 PM EST Urinary urgency CBC (WITH DIFF) Routine 09/26/2014 12:29 PM EST Peripheral neuropathy URINE CULTURE Routine 09/26/2014 12:29 PM EST Urinary urgency CRP, CARDIAC RISK (HS CRP) Routine 09/26/2014 12:29 PM EST Peripheral neuropathy PROTEIN ELECTROPHORESIS, SERUM Routine 09/26/2014 12:29 PM EST Peripheral neuropathy FOLATE, SERUM Routine 09/26/2014 12:29 PM EST Peripheral neuropathy VITAMIN B12 Routine 09/26/2014 12:29 PM EST Peripheral neuropathy COMPREHENSIVE METABOLIC PANEL Routine 09/26/2014 12:29 PM EST Peripheral neuropathy documented in this encounter Results * Differential, Automated (09/26/2014 12:29 PM EST) Neutrophil % 60.3 % [facility] Neutrophil Absolute 3.85 1.50 - 6.30 x10(3)/mcL [facility] Lymph % 31.6 % [facility] Lymphocytes Abs 2.0 1.0 - 3.6 x10(3)/mcL [facility] Monocyte % 6.0 % [facility] Monocyte Abs 0.4 0.2 - 1.0 x10(3)/mcL [facility] Eos % 1.6 % [facility]ILLENNI[facility] Eosinophils Abs 0.1 0.0 - 0.5 x10(3)/mcL [facility] Basophil % 0.2 % [facility] Baso Absolute 0.0 0.0 - 0.2 x10(3)/mcL [facility] Immature Gran % 0.30 % [facility] Comment: Immature granulocytes(IG's)percentage and absolute count will include metamyelocytes, myelocytes, and promyelocytes. Blood smears from CBCs yielding IG's will be scanned manually for concordance. If this scan disagrees with the automated IG or if promyelocytes are noted, a manual differential will be performed. Immature Gran Absolute 0.02 0.00 - 0.05 x10(3)/mcL [facility] Blood specimen (specimen) 09/26/2014 12:29 PM EST 09/26/2014 6:23 PM EST Narrative Resulting Agency Comment Spec In Lab Shante Benavidez MD HEMATOLOGY ORDERABLE S [facility] * Hemogram (09/26/2014 12:29 PM EST) White Blood Cell 6.4 4.0 - 10.0 x10(3)/mcL [facility] Red Blood Cell 5.47 4.63 - 6.08 x10(6)/mcL [facility] Hemoglobin 16.6 13.7 - 17.5 gm/dL [facility] Hematocrit 48.2 40.0 - 51.0 % [facility] MILLENNIUM Mean Cell Volume 88.1 79.0 - 92.0 fL [facility]ILL[facility]NI[facility] Mean Cell Hemoglobin 30.3 25.6 - 32.2 pg [facility]ILLENNI[facility] Mean Cell Hemoglobin Concentration 34.4 32.0 - 36.5 gm/dL [facility]ILLENNI[facility] Platelet 196 145 - 370 x10(3)/mcL [facility]ILLENNI[facility] RDW Standard Deviation 44.7 35.0 - 46.0 fL [facility] RDW coefficient of variation 13.8 10.9 - 14.4 % [facility] Mean Platelet Volume 10.1 9.0 - 12.0 fL [facility] Blood specimen (specimen) 09/26/2014 12:29 PM EST 09/26/2014 6:23 PM EST Narrative Resulting Agency Comment Spec In Lab Shante Benavidez MD HEMATOLOGY ORDERABLE S Performing Organization Address [facility] Co de Phone Number [facility] * High Sensitivity CRP (09/26/2014 12:29 PM EST) C-Reactive Protein High Sensitivity 1.2 mg/L [facility] Comment: Interpretations: 1) For accurate cardiac risk assessment, the average of 2 values >2 weeks apart should be obtained (ref 1&2). A value >10 mg/L indicates an inflammatory condition, concentrations >10 mg/L should not be used for cardiac risk assessment. ?<1.0 mg/L: low risk ?1.0 - 3.0 mg/L: moderate risk ?>3.0 mg/L: high risk groups for future cardiovascular events 2) The general reference range of apparently healthy individuals using this test is <5.0 mg/L (derived from the test package insert) References: 1. Dmitry WHITMAN et. al. ??AHA/CDC Scientific Statement: Markers of Inflammation and Cardiovascular Disease. ??Circulation 2003; 107:499-511 2. Ridker PM. ??Clinical applications of C-reactive protein for cardiovascular disease detection and prevention. ??Circulation 2003; 107:363-369 Blood specimen (specimen) 09/26/2014 12:29 PM EST 09/26/2014 6:23 PM EST Narrative Resulting Agency Comment Spec In Lab Shante Benavidez MD CHEMISTRY ORDERABLES Performing Organization Address [facility] Co de Phone Number [facility] * Syphilis Antibody, IgG (09/26/2014 12:29 PM EST) Syphilis IgG Neg Neg [facility] Blood specimen (specimen) 09/26/2014 12:29 PM EST 09/27/2014 7:49 AM EST Narrative Resulting Agency Comment Spec In Lab Shante Benavidez MD CHEMISTRY ORDERABLES [facility] * Comprehensive metabolic panel (non-fasting) (09/26/2014 12:29 PM EST) Glucose 82 60 - 199 mg/dL [facility] Comment:Diabetes: >=200 mg/d L plus symptoms Blood Urea Nitrogen 13 10 - 20 mg/dL [facility]ILL[facility]NI[facility] Creatinine 0.98 0.80 - 1.50 mg/dL [facility]ILL[facility]NI[facility] Comment: Please note that the pediatric reference intervals supplied above were not validated at [facility]. Results from pediatric patients should be interpreted [...] - 107 mmol/L [facility] MILLENNIUM Carbon Dioxide 30 22 - 31 mmol/L [facility] MILLENNIUM Anion Gap 9 5 - 15 mmol/L [facility] MILLENNIUM Calcium 9.6 8.5 - 10.5 mg/dL [facility] MILLENNI[facility] Protein, Total 7.4 6.4 - 8.3 gm/dL [facility]ILL[facility]NI[facility] Albumin 4.8 3.2 - 5.2 gm/dL [facility] MILLENNI[facility] Aspartate Aminotransferase 24 0 - 39 unit/L [facility] MILLENNIUM Alanine Aminotransferase 21 0 - 55 unit/L [facility] MILLENNI[facility] Alkaline Phosphatase 55 40 - 120 unit/L [facility] MILLENNIUM Bilirubin, Total 1.0 0.2 - 1.3 mg/dL [facility] MILLENNIUM Bilirubin, [...] the following links into your internet browser. [email or web address] Blood specimen (specimen) 09/26/2014 12:29 PM EST 09/26/2014 6:23 PM EST Narrative Resulting Agency Comment Spec In Lab Shante Benavidez MD CHEMISTRY ORDERABLES [facility] * Urine culture Clean Catch Urine (09/26/2014 12:29 PM EST) Urine Culture ? Patient Name: KEN COLE ?Ordered By: SHANTE BENAVIDEZ ? MR#: [id number] ?LOC: ??[facility] ? /Sex: ?? 7 (68 years), ? Male ? PROCEDURE: Urine Culture ?SOURCE: U CC ? COLLECTED: 09/26/2014 12:29 ? STARTED: 09/26/2014 18:20 ? FINAL REPORT ? Final Report ? Verified: 14:51 ? No growth (Less than 1,000 cfu/ml). ? ____ [facility] MILLENNIUM Urine specimen obtained by clean catch procedure (specimen) 09/26/2014 12:29 PM EST 09/26/2014 6:20 PM EST Narrative Resulting Agency Comment Spec In Lab Shante Benavidez MD MICROBIOLOGY - GENER AL ORDERABLES [facility] * Urinalysis with microscopic (09/26/2014 12:29 PM EST) Glucose, Urine Dipstick Negative Negative [...] Normal mg/dL [facility] MILLENNIUM pH, Urn (dipstick) 7.0 5.0 - 8.0 [facility] MILLENNIUM Blood, Urine Dipstick Negative Negative mg/dL [facility] MILLENNI[facility] Ketone, Urine Dipstick Negative Negative mg/dL [facility] MILLENNI[facility] Nitrite, Urine Dipstick Negative Negative [facility] MILLENNI[facility] Leukocytes, Urine Dipstick Negative Negative mcL [facility] MILLENNIUM Appearance, Urine Dipstick Clear Clear CERNER MILLENNIUM Specific [place] Urine Automated 1.005 1.002 - 1.030 [facility] MILLENNIUM Color, Urine Dipstick Yellow Yellow [facility] MILLENNIUM RBC, Urine Not Present 0 - 3 /HPF CERN[facility] MILLENNIUM WBC, Urine Not Present 0 - 3 /HPF [facility] MILLENNIUM Squamous Epithelial Cells, Urine <1 <=4 /HPF [facility] MILLENNIUM Urine specimen (specimen) 09/26/2014 12:29 PM EST 09/26/2014 6:21 PM EST Narrative Resulting Agency Comment Spec In Lab Shante Benavidez MD URINE ORDERABLES Performing Organization Address [facility] Co de Phone Number [facility] * Folate, serum (09/26/2014 12:29 PM EST) Folate >20.0 4.6 - 34.8 ng/mL [facility] Blood specimen (specimen) 09/26/2014 12:29 PM EST 09/26/2014 6:23 PM EST Narrative Resulting Agency Comment Spec In Lab Shante Benavidez MD CHEMISTRY ORDERABLES Performing Organization Address [facility] Co de Phone Number [facility] * (ABNORMAL) Vitamin B12 (09/26/2014 12:29 PM EST) Vitamin B12 1,124(H) 207 - 974 pg/mL [facility] Blood specimen (specimen) 09/26/2014 12:29 PM EST 09/26/2014 6:23 PM EST Narrative Resulting Agency Comment Spec In Lab Shante Benavidez MD CHEMISTRY ORDERABLES Performing Organization Address [facility] Co de Phone Number [facility] * Protein Electrophoresis, urine, random (09/26/2014 12:29 PM EST) Protein, Urine 6 0 - 12 mg/dL [facility] Albumin Not Perf % total [facility] Comment: Total Protein concentration too low to fractionate using current electrophoretic technique. Globulin, Urine Not Perf % total [facility] MILL[facility]NIUM Comment: Total Protein concentration too low to fractionate using current electrophoretic technique. M1 Band, Urine Not Perf None Detected % total [facility] MILLENNIUM Comment: Total Protein concentration too low to fractionate using current electrophoretic technique. U Scan Not Applicable [facility] Comment: Total Protein concentration too low to fractionate using current electrophoretic technique. Urine specimen (specimen) 09/26/2014 12:29 PM EST 09/26/2014 6:21 PM EST Narrative Resulting Agency Comment Spec In Lab Shante Benavidez MD URINE ORDERABLES Performing Organization Address [facility] Co de Phone Number [facility] * Protein Electrophoresis, serum (09/26/2014 12:29 PM EST) Total Prot Electrophoresis 7.1 6.4 - 8.3 gm/dL [facility]ILL[facility] Albumin Electrophoresis 4.83 3.60 - 6.00 gm/dL [facility]ILL[facility] Alpha 1 Globulin 0.15 0.10 - 0.30 gm/dL [facility] MILLENNIUM Alpha 2 Globulin 0.55 0.40 - 0.90 gm/dL [facility] MILLENNI[facility] Beta Globulin 0.64 0.50 - 1.00 gm/dL [facility] MILLENNI[facility] Gamma Globulin 0.94 0.50 - 1.30 gm/dL [facility]ILLENNI[facility] M1 Band None Detected None Detected gm/dL [facility]ILL[facility] Scan See Note [facility] Comment:Please see scanned r eport in Chart Review under the [facility] Heading. Blood specimen (specimen) 09/26/2014 12:29 PM EST 09/26/2014 6:23 PM EST Narrative Resulting Agency Comment Spec In Lab Shante Benavidez MD CHEMISTRY ORDERABLES Performing Organization Address [facility] Co de Phone Number [facility] documented in this encounter Visit Diagnoses Diagnosis Peripheral neuropathy- Primary Unspecified hereditary and idiopathic peripheral neuropathy Numbness Disturbance of skin sensation Urinary urgency Urgency of urination Fatigue Other malaise and fatigue documented in this encounter Care Teams Vacuum Cooker Operator Relationship Specialty Start Date End Date Reji Adams MD [facility] [place] [place] [address] PCP - General 02/12/12 06/27/15 documented as of this encounter
--- OUTSIDE RECORDS SUMMARY | 2024-07-09 11:18 | XMS_ITS | Encounter Summary ---
Author Organization Formerly [facility] [place] [address] Care Team Providers Care Teacher Preschool Name Role Phone Ron Burns MD Primary Care Provider [phone] Encounter Details Date Type Department Care Team (Late st Contact Info) Description 07/07/2015 12:25 PM EST Laboratory Appointment Lab [address] [phone] Social History Tobacco Use Types Packs/Day Years [...] EDT Office [place] [address] Charline Ziegler MD [facility] [address] documented as of this encounter Procedures Procedure Name Priority Date/Time Associated Diagnosis Comments PSA (ULTRASENSITIVE), TOTAL AND FREE Routine 07/07/2015 12:47 PM EST T3 TOTAL Routine 07/07/2015 12:47 PM EST TSH Routine 07/07/2015 12:47 PM EST T4, FREE Routine 07/07/2015 12:47 PM EST T4 TOTAL Routine 07/07/2015 12:47 PM EST PROTEIN ELECTROPHORESIS, SERUM Routine 07/07/2015 12:47 PM EST PSA (ULTRASENSITIVE) Routine 07/07/2015 12:47 PM EST documented in this encounter Results * PSA, total and free (07/07/2015 12:47 PM EST) Prostate Specific Antigen (Ultrasensitiv e) 3.40 0.00 - 4.00 ng/mL CERNER MILLENNIUM Prostate Specific Antigen, Free 0.6 ng/mL CERNER MILLENNIUM PSA % Free Not Calculated % CERN ER MILLENNIUM Comment: The percent free PSA was not calculated for this sample as the total PSA value was not in the range of 4-10 ng/mL. ??The utility of the percent free PSA in the setting of total PSA values below 4 or above 10 ng/mL has not been evaluated. Probability of finding DIRECT CARE SPECIALIST on needle biopsy by age in years: % fPSA ? 50-59yrs ? 60-69yrs ? >=70yrs <=10 ? 49.2 ? 57.5 ? 64.5 11-18 ?26.9 ? 33.9 ? 40.8 19-25 ?18.2 ? 23.9 ? 29.7 >25 ? 9.1 ? 12.2 ? 15.8 Blood specimen (specimen) Venous Draw / Unknown 07/07/2015 12:47 PM EST 07/07/2015 1:15 PM EST Narrative Resulting Agency Comment Spec In Lab Ron Burns MD CHEMISTRY ORDERABLES Performing Organization Address [facility] Co de Phone Number CERNER MILLENNIUM * Protein Electrophoresis, serum (07/07/2015 12:47 PM EST) Total Prot Electrophoresis 6.6 6.1 - 8.0 gm/dL CERNER MILLENNIUM Albumin Electrophoresis 4.47 3.60 - 6.00 gm/dL CERNER MILLENNIUM Alpha 1 Globulin 0.15 0.10 - 0.30 gm/dL CERNER MILLENNIUM Alpha 2 Globulin 0.53 0.40 - 0.90 gm/dL CERNER MILLENNIUM Beta Globulin 0.60 0.50 - 1.00 gm/dL CERNER MILLENNIUM Gamma Globulin 0.85 0.50 - 1.30 gm/dL CERNER MILLENNIUM M1 Band None Detected CERNER MILLENNIUM Blood specimen (specimen) Venous Draw / Unknown 07/07/2015 12:47 PM EST 07/07/2015 1:15 PM EST Narrative Resulting Agency Comment Spec In Lab Ron Burns MD CHEMISTRY ORDERABLES Performing Organization Address [facility] Phone Number CERNER MILLENNIUM * T4 Total (07/07/2015 12:47 PM EST) T4 Total 5.4 5.1 - 10.8 mcg/dL CERNER MILLENNIUM Comment: Reference Range: Cord Blood: ??6.9-14.4 mcg/dL Females: ??7.2-14.2 mcg/dL Pediatric ranges: ??Interpret with caution-ranges have not been verified Blood specimen (specimen) Venous Draw / Unknown 07/07/2015 12:47 PM EST 07/07/2015 1:15 PM EST Narrative Resulting Agency Comment Spec In Lab Ron Burns MD CHEMISTRY ORDERABLES [facility] * T4, free (07/07/2015 12:47 PM EST) Free T4 0.93 0.93 - 1.70 ng/dL [facility] MILLENNIUM Blood specimen (specimen) Venous Draw / Unknown 07/07/2015 12:47 PM EST 07/07/2015 1:15 PM EST Narrative Resulting Agency Comment Spec In Lab Ron Burns MD CHEMISTRY ORDERABLES Performing Organization Address City/[facility] Co de Phone Number [facility] * TSH (07/07/2015 12:47 PM EST) Thyroid Stimulating Hormone 1.40 0.27 - 4.20 mcIU/mL [facility] Blood specimen (specimen) Venous Draw / Unknown 07/07/2015 12:47 PM EST 07/07/2015 1:15 PM EST Narrative Resulting Agency Comment Spec In Lab Ron Burns MD CHEMISTRY ORDERABLES Performing Organization Address [facility] Co de Phone Number [facility] * T3 Total (07/07/2015 12:47 PM EST) T3 Total 91 75 - 170 ng/dL [facility] Blood specimen (specimen) Venous Draw / Unknown 07/07/2015 12:47 PM EST 07/07/2015 1:15 PM EST Narrative Resulting Agency Comment Spec In Lab Ron Burns MD CHEMISTRY ORDERABLES Performing Organization Address City/[facility] Co de Phone Number [facility] * PSA (07/07/2015 12:47 PM EST) Prostate Specific Antigen (Ultrasensitiv e) 3.40 0.00 - 4.00 ng/mL [facility] MILLENNIUM Blood specimen (specimen) Venous Draw / Unknown 07/07/2015 12:47 PM EST 07/07/2015 1:15 PM EST Narrative Resulting Agency Comment Spec In Lab Ron Burns MD CHEMISTRY ORDERABLES Performing Organization Address City/State/[facility] Co dc Phone Number [facility] documented in this encounter Visit Diagnoses Not on filedocumented in this encounter Care Teams Teacher Preschool Relationship Specialty Start Date End Date Ron Burns MD [address] [place] [address] PCP - General General Internal Medicine 06/28/15 documented as of this encounter
--- OUTSIDE RECORDS SUMMARY | 2024-07-09 11:18 | XMS_ITS | Encounter Summary ---
Author Organization [facility] [place] [address] Care Team Providers Care Care Transition Mgr Name Role Phone Reji Adams MD Primary Care Provider [phone] Encounter Details Date Type Department Care Team (Late st Contact Info) Description 01/25/2015 Orders Only Radiology and Cardiology Results [address] [place] [phone] Apd Conversion, Results Provider, Social History Tobacco Use Types Packs/Day [...] EDT Office [place] [address] Charline Ziegler MD [facility] [place] [place] [address] documented as of this encounter Procedures Procedure Name Priority Date/Time Associated Diagnosis Comments PROTHROMBIN TIME Routine 01/25/2015 8:50 AM EDT documented in this encounter Results * (ABNORMAL) Prothrombin Time (01/25/2015 8:50 AM EDT) Prothrombin Time 10.6(Exte rnal Lab) 9.2 - 11.2 SECONDS GUANACO CONVERSION International Normalization Ratio 1.03(Exte rnal Lab) GUANACO CONVERSION 01/25/2015 8:50 AM EDT Results Provider Apd Conversion HEMAT OLOGY ORDERABLES GUANACO CONVERSION documented in this encounter Visit Diagnoses Not on filedocumented in this encounter Care Teams Care Transition Mgr Relationship Specialty Start Date End Date Reji Adams MD [facility] [place] [address] PCP - General General Internal Medicine 07/13/15 documented as of this encounter
--- OUTSIDE RECORDS SUMMARY | 2024-07-09 11:18 | XMS_ITS | Encounter Summary ---
Author Organization [facility] Address [facility] [place] [address] Care Team Providers Care Electrician Locomotive Name Role Phone Reji Adams MD Primary Care Provider [phone] Encounter Details Date Type Department Care Team (Late st Contact Info) Description 01/04/2015 Orders [place] [phone] Bebeto Lomeli MD [facility] [address] Right hand pain Social History Tobacco Use [...] 11:30 AM EDT Office [place] [phone] Charline Ziegler MD [facility] [place] [address] documented as of this encounter Results * XR hand diagnostic [...] Diagnosis Right hand pain Pain in limb Right hand pain Pain in limb documented in this encounter Care Teams Electrician Locomotive Relationship Specialty Start Date End Date Reji Adams MD [facility] [place] [address] PCP - General 02/12/12 06/27/15 documented as of this encounter
--- OUTSIDE RECORDS SUMMARY | 2024-07-09 11:18 | XMS_ITS | Encounter Summary ---
Author Organization [facility] Address [facility] [place] [address] Care Team Providers Care Sifting Operator Name Role Phone Reji Adams MD Primary Care Provider [phone] Encounter Details Date Type Department Care Team (Late st Contact Info) Description 11/01/2014 11:45 AM EDT Office [place] [address] Michael Monreal MD [facility] [place] [address] Paresthesia of arm Discharge Disposition: Home Social History Tobacco Use [...] Sign Reading Time Taken Comments Blood Pressure 135/84 11/01/2014 11:39 AM EDT Pulse 67 11/01/2014 11:39 AM EDT Temperature - - Respiratory Rate - - Oxygen Saturation - - Inhaled Oxygen Concentration - - Weight 103 kg (227 lb) 11/01/2014 11:39 AM EDT Height 180.3 cm (5' 11) 11/01/2014 11:39 AM EDT Body Mass Index 31.66 11/01/2014 11:39 AM EDT documented in this encounter Progress Notes * Michael Monreal MD - 11/01/2014 1:12 PM EDT I was asked to see Ken Mckeon at the request of Ewa Contreras M.D. for EMG nerve conduction studies for evaluation of right arm paresthesias. Brief history, Ken is a 69-year-old gentleman who has noted some numbness of his right hand, mainly in the thumb, index, and middle finger. He has a history of carpal tunnel release bilaterally many years ago. He does have some pain in his forearm. He does have history of chronic cervical pain and history of significant cervical spine stenosis at the C3-4 level. He also mentions more recently intermittent tingling of the left shoulder radiating down to the bicep. On focused exam there is no muscle atrophy or fasciculations in the upper extremities. Power is 5 out of 5 throughout in the upper extremities. Sensory exam is notable for some mild alteration of index finger right to left. Tinel's sign is mildly positive on the right. EMG Nerve Conduction Studies of Upper Extremities: Please see report for complete data. The median sensory studies are normal bilaterally. Median motor studies show prolonged distal motor latency of 5.0 milliseconds bilaterally with normal distal amplitudes. Right ulnar sensory motor studies are normal, as are the right median and ulnar F waves. EMG of right upper extremity for deltoid, bicep, EDC, ADM, and FDI showed no active denervation and normal motor unit action potentials. Right APB did show a complex repetitive discharge, as well as mild chronic neuropathic changes with mildly reduced recruitment. EMG of left upper extremity for deltoid, biceps, triceps, brachioradialis, and FDI showed no active denervation and normal motor unit action potentials. 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 There is no clear cut electrophysiologic evidence of cervical radiculopathy. Of note, the right APB did show complex repetitive discharge, which is atypical for chronic median Neuropathy/CTS, but can occur. Lower cervical radiculopathy cannot be clearly excluded on EMG. Of note, he does have a history of cervical spine stenosis. The intermittent left proximal arm paresthesia may be related to his cervical spine stenosis with radiculopathy that was not picked up on EMG. Recommendations: He will follow up with his primary care doctor. Of note, he says he has an appointment with a Spine Surgeon at [facility] regarding his cervical spine stenosis. He says he is having some worsening cervical pain. PT/OT could be considered for his median neuropathy on the right. Orthopedic consult may also be considered including possibility of steroid injection in the carpal tunnel to see if that will help the symptoms. documented in this encounter Plan of Treatment Upcoming Encounters Date Type Department Care Team (Late st Contact Info) Description 12/15/2024 11:30 AM EDT Office [place] [address] Charline Ziegler MD [facility] [place] [address] documented as of this encounter Visit Diagnoses Diagnosis Paresthesia of arm Disturbance of skin sensation documented in this encounter Care Teams Sifting Operator Relationship Specialty Start Date End Date Reji Adams MD [facility] GENERAL [place] [address] PCP - General 02/12/12 06/27/15 documented as of this encounter
--- OUTSIDE RECORDS SUMMARY | 2024-07-09 11:18 | XMS_ITS | Encounter Summary ---
Author Organization [facility] [place] [address] Care Team Providers Care Service Operations Manager Name Role Phone Reji Adams MD Primary Care Provider [phone] Encounter Details Date Type Department Care Team (Late st Contact Info) Description 01/25/2015 [place] [phone] Bright Casanova MD Social History Tobacco Use Types Packs/Day [...] 11:30 AM EDT Office [place] [phone] Charline Ziegler MD [facility] [address] documented as of this encounter Procedures Procedure Name Priority Date/Time Associated Diagnosis Comments PLATELET FUNCTION TEST ([facility]) STAT 01/25/2015 9:10 AM EDT documented in this encounter Results * Platelet function analysis (01/25/2015 9:10 AM EDT) Col/Epi 112 90 - 160 sec CERNER MILLENNIUM Comment: Col/Epi Normal and Col/ADP Normal Platelet function is normal. If patient history/physical examination gives strong indication of bleeding disorder repeat testing for confirmation. If still normal, consider testing for factor deficiencies. Col/Epi Abnormal and Col/ADP Normal This pattern is indicative of drug induced platelet dysfunction. Most commonly seen after aspirin ingestion. Review patient chart information for prescription and non-prescription medication. Col/Epi Abnormal and Col/ADP Abnormal Platelet function is abnormal. This pattern is most commonly seen in patients with von Willebrand disease or congenital platelet defects. Prolongation of the Col/ADP closure time generally indicates a more extensive qualitative platelet defect and/or an abnormality in von Willebrand factor. If the patient is not anemic, thrombocytopenic or has cardiovascular or renal disease, the underlying reason for the abnormality should be determined. Most patients with prolonged Col/ADP closure times manifest abnormalities in primary hemostasis that could potentially place them at an increased risk of bleeding during a surgical procedure. Col/ADP 58 50 - 120 sec CERNER [employer] TravelENNIUM Blood specimen (specimen) Venous Draw / Unknown 01/25/2015 9:10 AM EDT 01/25/2015 11:11 AM EDT Narrative Resulting Agency Comment Spec In Lab Bright Casanova MD HEMATOLOGY ORDERABLE S [facility] [employer] documented in this encounter Visit Diagnoses Not on filedocumented in this encounter Care Teams Service Operations Manager Relationship Specialty Start Date End Date Reji Adams MD [facility] [place] [address] PCP - General 02/12/12 06/27/15 documented as of this encounter
--- OUTSIDE RECORDS SUMMARY | 2024-07-09 11:18 | XMS_ITS | Encounter Summary ---
[place] [address] Care Team Providers Care Roofing Sales Representative Name Role Phone eRji Adams MD Primary Care Provider [phone] Reason for Referral * Diagnostic Test (Routine) - Closed Specialty Diagnoses / Procedures Referred By Duglas arizmendi Referred To Contact Radiology Diagnoses Elbow pain, right Procedures MRI Elbow Right WO Contrast Andre Conner MD [address] [place] [address] [place] [address] Referral ID Status Reason Start Date Expiration Date V isits Requested Visits Authorized [id number] Closed Specialty Service Requested 08/14/2015 08/13/2016 1 1 Reason for Visit * Diagnostic Test (Routine) - Closed Specialty Diagnoses / Procedures Referred By Duglas arizmendi Referred To Contact Radiology Diagnoses Elbow pain, right Procedures MRI Elbow Right WO Contrast Andre Conner MD [address] [place] [address] [place] [address] Referral ID Status Reason Start Date Expiration Date V isits Requested Visits Authorized [id number] Closed Specialty Service Requested 08/14/2015 08/13/2016 1 1 Encounter Details Date Type Department Care Team (Latest Contact Info) Description 08/15/2015 11:02 AM EST - 08/15/2015 11:59 PM EST [place] [phone] Andre Conner MD [address] [place] [id number] Elbow pain, right Discharge Disposition: Home Social History Tobacco Use [...] 3 times daily as needed. 03/19/2018 Saw [place] 500 mg capsule Take 500 mg by mouth daily. 03/14/2020 Mavis Extract 500 mg Cap Take 1 capsule by mouth daily. 03/24/2017 naproxen sodium (ALEVE) 220 mg tablet Take 220 mg by mouth as needed. 01/04/2011 07/09/2017 documented as of this encounter Plan of Treatment Upcoming Encounters Date Type Department Care Team ([facility] st Contact Info) Description 12/15/2024 11:30 AM EDT Office [place] [phone] Charline Ziegler MD [facility] [place] [address] documented as of this encounter Procedures Procedure Name Priority Date/Time Associated Diagnosis Comments MRI ELBOW RIGHT WO CONTRAST Routine 08/15/2015 12:41 PM EST Elbow pain, right documented in this encounter Results * MRI Elbow Right WO Contrast (08/15/2015 12:41 PM EST) Anatomical Region Laterality Modality Elbow Right Magnetic Resonan ce Impressions 08/15/2015 1:46 PM EST IMPRESSION: 1. 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 2. ??High-grade partial tear, extensor origin. 3. ??Additional degeneration is present at the common flexor origin. 4. 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 Narrative 08/15/2015 1:46 PM EST EXAMINATION: MRI ELBOW RIGHT WO CONTRAST CLINICAL HISTORY: Elbow pain, right and numbness TECHNIQUE: MR images of the elbow were acquired in multiple planes without contrast COMPARISON: None FINDINGS: No fracture. A joint effusion is present. Synovial proliferation is present but no large intra-articular body is identified. At the articulation of the radial head and capitellum bone articulates directly on bone secondary to severe loss of articular cartilage. There are multiple smaller and more focal areas of cartilage injury elsewhere throughout the elbow. Large osteophytes are present throughout and osteophytes in both the coronoid and olecranon fossa likely restricting the range of motion. The collateral ligaments of the elbow are thickened and increased in signal intensity consistent with extensive degeneration. A high-grade partial-thickness tear is present at the common extensor origin. Abnormal signal intensity consistent with a minimal degree of degeneration is present at the common flexor origin. The triceps insertion is normal in appearance. I do not see an injury of the biceps insertion. As the ulnar nerve passes through the cubital tunnel the increases in diameter and signal intensity consistent with neuropraxia no focal abnormality of the median or radial nerves. Procedure Note Dev Boss MD - 08/15/2015 EXAMINATION: MRI ELBOW RIGHT WO CONTRAST CLINICAL HISTORY: Elbow pain, right and numbness TECHNIQUE: MR images of the elbow were acquired in multiple planeswithout contrast COMPARISON: None FINDINGS: No fracture. A joint effusion is present. Synovial proliferation is present but nolarge intra-articular body is identified. At the articulation of the radial head and capitellum bone articulatesdirectly on bone secondary to severe loss of articular cartilage. There aremultiple smaller and more focal areas of cartilage injury elsewhere throughout theelbow. Large osteophytes are present throughout and osteophytes in both thecoronoid and olecranon fossa likely restricting the range of motion. The collateral ligaments of the elbow are thickened and increased insignal intensity consistent with extensive degeneration. A high-grade partial-thickness tear is present at the common extensororigin. Abnormal signal intensity consistent with a minimal degree of degenerationis present at the common flexor origin. The triceps insertion is normal in appearance. I do not see an injury ofthe biceps insertion. As the ulnar nerve passes through the cubital tunnel the increases indiameter and signal intensity consistent with neuropraxia no focal abnormality ofthe median or radial nerves. IMPRESSION IMPRESSION: 1. 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 2. High-grade partial tear, extensor origin. 3. Additional degeneration is present at the common flexor origin. 4. 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 Andre Rodriguez MD IMG MRI ORDERABLES documented in this encounter Visit Diagnoses Diagnosis Elbow pain, right Pain in joint, upper arm documented in this encounter Care Teams Roofing Sales Representative Relationship Specialty Start Date End Date Reji Adams MD [facility] GENERAL [place] [address] PCP - General Internal Medicine 07/13/15 documented as of this encounter
--- OUTSIDE RECORDS SUMMARY | 2024-07-09 11:18 | XMS_ITS | Encounter Summary ---
Author Organization [facility] [place] [address] Care Team Providers Care Costume Technician Name Role Phone Reji Adams MD Primary Care Provider [phone] Encounter Details Date Type Department Care Team (Late st Contact Info) Description 01/24/2015 Interpretation Only Radiology [address] [place] [address] [place] [phone] Unknown None Social History Tobacco Use Types [...] 11:30 AM EDT Office [place] [phone] Charline Ziegler MD [facility] [place] [address] documented as of this encounter Procedures Procedure Name Priority Date/Time Associated Diagnosis Comments XR CHEST PA AND LATERAL Routine 01/24/2015 12:35 PM EDT documented in this encounter Results * XR Chest PA & Lateral (Generic) (01/24/2015 12:35 PM EDT) Anatomical Region Laterality Modality Chest N/A Radiographic Chelsea ging 01/24/2015 12:3 5 PM EDT Narrative 01/24/2015 12:35 PM EDT APD Historical Result Principal Document Clerk: ??TAL HUYNH CHEST - TWO VIEWS: HISTORY: ??Preoperative exam for anesthesia and neck surgery. TECHNIQUE: ??PA and lateral views of the chest are performed and compared to a prior study from October 2009. There is a slight pectus deformity in the anterior chest. ??The heart and mediastinum are normal in size and contour. ??Lungs are clear. Vascularity is normal. ??Bony and soft tissue structures are unchanged. Degenerative spurring and bridging osteophytes are noted in the thoracic spine. IMPRESSION: Hyperinflated, grossly clear lungs. Tal Kat MD DALE/jose [id number] CC: Procedure Note Unknown - 01/25/2019 APD Historical Result Principal Document Clerk: TAL KAT CHEST - TWO VIEWS: HISTORY: Preoperative exam for anesthesia and neck surgery. TECHNIQUE: PA and lateral views of the chest are performed and comparedto a prior study from October 2009. There is a slight pectus deformity in the anterior chest. The heart andmediastinum are normal in size and contour. Lungs are clear. Vascularity is normal. Bony andsoft tissue structures are unchanged. Degenerative spurring and bridging osteophytes are noted in thethoracic spine. IMPRESSION: Hyperinflated, grossly clear lungs. Tal Kat MD DALE/mn [id number] CC: Unknown IMG DX ORDERABLES documented in this encounter Visit Diagnoses Not on filedocumented in this encounter Care Teams Costume Technician Relationship Specialty Start Date End Date Reji Adams MD [facility] GENERAL [place] [address] PCP - General General Internal Medicine 07/13/15 documented as of this encounter
--- OUTSIDE RECORDS SUMMARY | 2024-07-09 11:18 | XMS_ITS | Encounter Summary ---
Author Organization [facility] [place] [address] Care Team Providers Care Care Support Representative Name Role Phone Reji Adams MD Primary Care Provider [phone] Reason for Visit * Reason Onset Date Comments Other 01/19/2015 Encounter Details Date Type Department Care Team (Late st Contact Info) Description 01/19/2015 Telephone Internal Medicine at [place] [id number] Amrita Rodriguez RN Other Social History Tobacco Use Types [...] encounter Miscellaneous Notes * Telephone Encounter - Nga Salgado - 01/19/2015 1:50 PM EDT The patient called stating he keeps getting disconnected when he tries to speak to the nurses. He wanted to get a message to Mery that he appreciates her help, and will call in for an appointment ifhe feels he needs one. * Telephone Encounter - Janine Brandt - 01/19/2015 1:37 PM EDT Patient calling for Mery * Telephone Encounter - Amrita Rodriguez RN - 01/19/2015 1:29 PM EDT Patient called, reports that since last visit with Olga he still feels very tired and now feels heaviness in his legs like 300# apiece, dizziness with bending then standing quickly, heat bothers him a lot. States the pain in neck and numbness of arms is the same. Thinks the heaviness is progressing over past 2-3 weeks and it is what he is most concerned about. He tried to work outside today and felt dizzy. He tries to stay hydrated and has had lots of water, diet Coke already today. Denies chest pain/pressure. Legs are uncomfortable but not painful. Not sure if they are swollen but when cued to check for pitting edema he did not see any indentation from his thumb along shins. States bowels and bladder working ok. Might have gained some weight due to inactivity. Call then lost while discussing ?fluid retention. Reviewed with Olga Sotomayor who felt sx were not urgent and to schedule an appt next week. Patient called back.Takes xanax only at night. Encouraged to elevate feet when sitting and above his heart when reclining. Call lost again during appt scheduling. documented in this encounter Plan of Treatment Upcoming Encounters Date Type Department Care Team (Late st Contact Info) Description 12/15/2024 11:30 AM EDT Office [place] [phone] Charline Ziegler MD [facility] [place] [address] documented as of this encounter Visit Diagnoses Not on filedocumented in this encounter Care Teams Care Support Representative Relationship Specialty Start Date End Date Reji Adams MD [facility] [place] [address] PCP - General 02/12/12 06/27/15 documented as of this encounter
--- OUTSIDE RECORDS SUMMARY | 2024-07-09 11:18 | XMS_ITS | Encounter Summary ---
Author Organization [facility] [place] [address] Care Team Providers Care Completion Supervisor Name Role Phone Reji Adams MD Primary Care Provider [phone] Encounter Details Date Type Department Care Team (Late st Contact Info) Description 03/15/2015 Interpretation Only Radiology [address] [place] [address] [place] [phone] Unknown None Social History Tobacco Use Types [...] 11:30 AM EDT Office [place] [phone] Charline Ziegler MD [facility] [place] [address] documented as of this encounter Procedures Procedure Name Priority Date/Time Associated Diagnosis Comments US EXTREMITY NON VASCULAR LIMITED ANATOMIC SPECIFIC RIGHT Routine 03/15/2015 10:49 AM EDT documented in this encounter Results * US Extremity Non Vascular Limited Right (03/15/2015 10:49 AM EDT) Anatomical Region Laterality Modality Ultrasound 03/15/2015 10:4 9 AM EDT Narrative 03/15/2015 10:49 AM EDT APD Historical Result Principal Braille Typist: ??EMILY ??HANNAH ULTRASOUND EXTREMITY NONVASCULAR LIMITED - RIGHT: HISTORY: ??The patient is a 69-year-old male with remote history of carpal tunnel surgery. ?? Patient presenting with palmar pain and fullness at the wrist/base of the hand and concern for ganglion cyst. Patient has reportedly scheduled for repeat carpal tunnel release surgery with findings based on EMG results. ??No recent MRI imaging of the wrist submitted. COMPARISON: ??None. FINDINGS: Targeted ultrasound evaluation in the area of clinical concern as directed by the patient corresponding to the wrist extending to the level of the base of the metacarpals was performed. ??The patient cannot specifically localize a discrete palpable lesion. ??There is no discrete cystic collection/fluid collection identified in the area of concern as directed by the patient. ??The patient was able to isolate 4th finger flexion with no discrete abnormality identified. ??Patient had more difficulty in localizing 3rd finger and 2nd finger flexion; however, no discrete abnormality is identified. ??Areas of shadowing in the region of the area of concern are noted also with areas of prominent soft tissue adjacent to tendons, which may be related to scar tissue. IMPRESSION: No discrete ganglion cyst, as clinically questioned. Suspected scar tissue at the level of the volar wrist and base of the hand. Emily Boykin MD Haylie [id number] CC: Procedure Note Unknown - 01/25/2019 APD Historical Result Principal Braille Typist: EMILY BOYKIN ULTRASOUND EXTREMITY NONVASCULAR LIMITED - RIGHT: HISTORY: The patient is a 69-year-old male with remote history of carpaltunnel surgery. Patient presenting with palmar pain and fullness at the wrist/base of thehand and concern for ganglion cyst. Patient has reportedly scheduled for repeat carpal tunnel release surgerywith findings based on EMG results. No recent MRI imaging of the wrist submitted. COMPARISON: None. FINDINGS: Targeted ultrasound evaluation in the area of clinical concern as directedby the patient corresponding to the wrist extending to the level of the base of themetacarpals was performed. The patient cannot specifically localize a discrete palpable lesion. There is nodiscrete cystic collection/fluid collection identified in the area of concern as directedby the patient. The patient was able to isolate 4th finger flexion with no discrete abnormality identified.Patient had more difficulty in localizing 3rd finger and 2nd finger flexion; however, nodiscrete abnormality is identified. Areas of shadowing in the region of the area of concern are noted also withareas of prominent soft tissue adjacent to tendons, which may be related to scar tissue. IMPRESSION: No discrete ganglion cyst, as clinically questioned. Suspectedscar tissue at the level of the volar wrist and base of the hand. Emily Boykin MD CARLOS/jose [id number] CC: Unknown IMG US GEN ORDERABLE S documented in this encounter Visit Diagnoses Not on filedocumented in this encounter Care Teams Completion Supervisor Relationship Specialty Start Date End Date Reji Adams MD [facility] [place] [address] PCP - General General Internal Medicine 07/13/15 documented as of this encounter
--- OUTSIDE RECORDS SUMMARY | 2024-07-09 11:18 | XMS_ITS | Encounter Summary ---
Author Organization [facility] Address [facility] [place] [address] Care Team Providers Care Destination Sign Repairer Name Role Phone Reji Adams MD Primary Care Provider [phone] Reason for Visit * Reason Comments Right Hand Pain CTS Encounter Details Date Type Department Care Team (Late st Contact Info) Description 11/15/2014 2:10 PM EDT Office [place] [address] Abbie Butcher PA [facility] [place] [address] Numbness Discharge Disposition: Home Social History Tobacco Use [...] Sign Reading Time Taken Comments Blood Pressure 111/74 11/15/2014 2:51 PM EDT Pulse 77 11/15/2014 2:51 PM EDT Temperature - - Respiratory Rate - - Oxygen Saturation - - Inhaled Oxygen Concentration - - Weight 102.1 kg (225 lb) 11/15/2014 2:51 PM EDT Height 179.1 cm (5' 10.5) 11/15/2014 2:51 PM ED T Body Mass Index 31.83 11/15/2014 2:51 PM EDT documented in this encounter Progress Notes * Abbie Butcher PA - 11/15/2014 3:12 PM EDT PATIENT NAME: Ken Mckeon AGE: 69 y.o. MR#: [id number] DATE OF VISIT: 11/15/2014 DATE OF INJURY/ONSET: Chronic STAFF: Dr. Lomeli CHIEF COMPLAINT: Right hand numbness HISTORY OF PRESENT ILLNESS: Mr. Mckeon is a 69 y.o. year old male who comes into clinic today for evaluation of the right hand. This patient is known to me after being evaluated for hand and shoulder complaints in the past. He is here today for worsening right hand numbness. He states his symptoms have been present for 2-3 months. He cannot recall any specific injuries. He states that he was diagnosed with carpal tunnel syndrome decades ago and underwent bilateral carpal tunnel releases. He states that he recovered quite well after the surgery and had no residual symptoms. His current symptoms primarily involve the thumb, index, and long fingers. He states he has diminished sensation over thedorsal and palmar aspects of the hand. Before his prior carpal tunnel surgery he was having nocturnal symptoms and symptoms when driving, but this has not been present this time around. In addition to his hand complaints, he is also in the process of having his spinal evaluated. He recently had an MRI that showed multilevel degenerative changes, most notable at C3-4 and 4-5. He was recently evaluated in neurology and presents today after having nerve conduction studies. PHYSICAL EXAM: Mr. Mckeon is alert and oriented. He appears in no acute discomfort and is resting comfortably in the exam room. Inspection: No erythema, ecchymosis, or swelling involving the patient's right hand. Well healed scars from prior open carpal tunnel releases. Palpation: No triggering of the digits. No focal wrist pain. At times he has pain over his forearm. ROM/Strength: FDS, FDP, EPL, EPL tendons are intact. No significant atrophy is noted. He continues to have full wrist range of motion, but has some limited finger range of motion. Orthopedic testing: Negative Soraida's. Positive Tinel's over the carpal tunnel. Negative Phalen's and Emily's compression. He has neck pain with cervical spine range of motion, but this does not reproduce his symptoms into his thumb, index, and long fingers. He states at times he has pain that radiates over the lateral aspect of the shoulder with c-spine position changes. Neurovascular: At baseline he reports diminished sensation into the median nerve distribution on the right. Sensation in the ulnar nerve distribution remains intact. Hand remains well perfused. His left hand remains largely asymptomatic, although at times he states he has very mild tingling into the tip of his thumb. RADIOLOGICAL STUDIES: No new x-rays. His nerve conduction studies show bilateral median motor latencies are 5.0 ms. There is some diminished recruitment of the right APB. There was no clearcut evidence of cervical radiculopathy, but it was noted in the neurology visit note that he could have a radiculopathy that has yet to establish itself on EMG. ASSESSMENT: Right hand numbness with prolonged median motor nerve latency PLAN: We reviewed his treatment options. Since he has had a prior carpal tunnel release and also has concomitant cervical spine pathology we discussed that a carpal tunnel cortisone injection would be helpful for diagnostic and therapeutic purposes. He elected to proceed with this today. Please seemy injection note below. If he has a favorable but transient response to the cortisone injection hecould potentially benefit from revision carpal tunnel surgery. We would like to reevaluate his handin approximately 4 weeks if his symptoms persist. He will call to schedule this appointment. He states that he would also like to repeat an injection for his shoulder. He will also call to schedule afollow up with me for a subacromial injection in clinic. The patient understands to contact us if they have any other questions or concerns. The above documentation was completed using [employer] voice recognition software. PROCEDURE NOTE: Right CARPAL TUNNEL INJECTION A time-out was performed and the right wrist was confirmed to be the site of injection. The patientwas confirmed to have no allergies to betadine, local anesthetics, or corticosteroids. The patient was reminded that blood glucose can be transiently elevated by the corticosteroid injection. The patient was counseled about the potential risks of the procedure, including infection, bleeding, incomplete relief of symptoms, and skin blanching at the injection site. I also discussed with the patientthat cortisone is not healthy for muscle tendons or cartilage and that there is an increased risk with repeated injections. The skin was prepped widely over the volar aspect of the wrist with alcohol and betadine. Using sterile technique, the needle was advanced into the carpal tunnel at the distal wrist crease ulnar to the palmaris longus. A steroid injection was then performed using 2cc 1% plain Lidocaine and 2cc (12 mg) of Celestone. The skin was cleaned with alcohol and a band-aid was applied. The patient tolerated the procedure well. After the injection the patient stated he had numbness in the median nerve distribution. documented in this encounter Plan of Treatment Upcoming Encounters Date Type Department Care Team (Late st Contact Info) Description 12/15/2024 11:30 AM EDT Office [place] [address] Charline Ziegler MD [facility] [place] [address] documented as of this encounter Visit Diagnoses Diagnosis Numbness Disturbance of skin sensation documented in this encounter Administered Medications Inactive Administered Medications - up to 3 most recent administrations Medication Order MAR Action Action Date Dose Rate Site betamethasone acetate-betamethasone sodium phosphate (CELESTONE) injection 12 mg 12 mg, Intra-articular, ONCE, 1 dose, On Fri11/15/14 at 1530, Routine Given 11/15/2014 3:13 PM EDT 12 mg lidocaine (XYLOCAINE) 10 mg/mL (1 %) injection 20 mg 20 mg, Subcutaneous, ONCE, 1 dose, On Fri11/15/14 at 1530, Routine Given 11/15/2014 3:13 PM EDT 20 mg documented in this encounter Care Teams Destination Sign Repairer Relationship Specialty Start Date End Date Reji Adams MD [facility] GENERAL [place] [address] PCP - General 02/12/12 06/27/15 documented as of this encounter
--- OUTSIDE RECORDS SUMMARY | 2024-07-09 11:18 | XMS_ITS | Encounter Summary ---
Author Organization [facility] Address [facility] [place] [address] Care Team Providers Care Acid Crane Operator Name Role Phone Reji Newberry MD Primary Care Provider Reason for Visit * Reason Comments Pre-op Exam neck surgury on January 31 Encounter Details Date Type Department Care Team (Late st Contact Info) Description 01/24/2015 3:05 PM EDT Office Visit Internal Medicine at [address] [address] Pita Sotomayor PA [facility] [place] [address] Pre-op exam Discharge Disposition: Home Social History Tobacco Use [...] Sign Reading Time Taken Comments Blood Pressure 110/75 01/24/2015 3:27 PM EDT Pulse 69 01/24/2015 3:27 PM EDT Temperature 36.7 ??C (98.1 ??F) 01/24/2015 3:27 PM ED T Respiratory Rate - - Oxygen Saturation 98% 01/24/2015 3:27 PM EDT Inhaled Oxygen Concentration - - Weight 98.6 kg (217 lb 6.4 oz) 01/24/2015 3:27 P M EDT Height 179.1 cm (5' 10.5) 01/24/2015 3:27 PM ED T Body Mass Index 30.75 01/24/2015 3:27 PM EDT documented in this encounter Progress Notes * Pita Sotomayor PA - 01/24/2015 3:51 PM EDT PATIENT: Ken Mckeon : 1945 PCP: REJI NEWBERRY MD CHIEF COMPLAINT: Chief Complaint Patient presents with ??? Pre-op Exam neck surgury on January 31 HISTORY OF PRESENT ILLNESS: Ken Mckeon is a 69 y.o. male who presents to the office today for an acute visit. Surgery: Cervical spine surgery for cervical stenosis with cervical radiculopathy Date: 01/31/15 Surgeon: Dr. Casanova at [facility] Concerns: He is worried that the surgery is not going to reduce his sxs, but has also been advised that there really are no other options for intervention at this time and he could potentially lose use of his UEs if he does not have surgical intervention. Personal or FHx of bleeding/clotting d/o: None Personal or FHx or problems with anesthesia: None Allergies: PCN - tongue swelling Meds: Reviewed, as per eDH Had CXR and pre-op interview with RN at [facility] today. Will be getting labs at [facility] today Needs EKG Will be stopping NSAIDs/herbal supplements No recent illness REVIEW OF SYSTEMS: Review of Systems Constitutional: Negative for fever and chills. HENT: Negative for trouble swallowing. Respiratory: Negative for shortness of breath. Cardiovascular: Positive for palpitations. Negative for chest pain. Gastrointestinal: Negative for nausea, vomiting and diarrhea. Skin: Negative for rash. Neurological: Negative for syncope. Hematological: Does not bruise/bleed easily. Patient Active Problem List Diagnosis ??? Right [...] 1 tablet by mouth daily. ??? Saw [place] 500 mg capsule Take 500 mg by mouth daily. ??? Mavis Extract 500 mg Cap Take 1 capsule by mouth daily. ??? naproxen sodium (ALEVE) 220 mg tablet Take 220 mg by mouth as needed. No current facility-administered medications for this visit. PHYSICAL EXAM: BP 110/75 Pulse 69 Temp(Src) 36.7 ??C (98.1 ??F) Ht 179.1 cm (5' 10.5) Wt 98.612 kg (217 lb 6.4 oz) BMI 30.74 kg/m2 SpO2 98% Physical Exam Constitutional: He is oriented to [...] is no rebound and no guarding. Musculoskeletal: He exhibits no edema. Lymphadenopathy: He has no cervical adenopathy. Neurological: He is alert and oriented to person, place, and time. No cranial nerve deficit. Skin: Skin is warm and dry. ASSESSMENT/PLAN: Ken was seen today for pre-op exam. Diagnoses and associated orders for this visit: Pre-op exam - Pt is a 69 year old male here for pre-op exam for upcoming c-spine surgery. EKG was done today and is unchanged from previous tracings. He will be going to [facility] for labs requested by surgeon (CBC, CMP, PT/INR, PTT, Plt function screen). He had CXR at [facility] today and pre-anesthesia RN visit as well. - At this time he is average risk for this intermediate risk procedure. - Discussed stopping all NSAIDs/supplements 7 days prior to surgery. - EKG 12 Lead RISK ASSESSMENT via 2007 ACC/AHA guidelines: Surgery is Emergent: [] Yes [x]No Patient has active cardiac condition: [] Yes [x] No -[]recent [place] -[][place] -[]Class IV CHF -[]Decompensated HF -[]High grade heart block -[]SVT with HR >100 -[]Symptomatic bradycardia -[]V tach Surgical risk is: []High (Vascular) [x]Intermediate (peritoneal, thoracic, CEA, H&N, ortho, prostate) []Low (endoscopic, cataracts, breast, ambulatory) Functional capacity is: [...] disease -[] Preop creatinine >2.0 -[] Diabetes 1. Risk assessment: Per Revised Walsh Cardiac [...] -[] Consider intraoperative JACKELINE -[] post-op ECG MATT Briggs documented in this encounter Plan of Treatment Upcoming Encounters Date Type Department Care Team (Late st Contact Info) Description 12/15/2024 11:30 AM EDT Office [place] [address] Charline Ziegler MD [facility] [place] [address] Pending Results Name Type Priority Associated Diagnoses Date /Time EKG 12 Lead ECG Routine 03/16/2015 10 :05 AM EDT documented as of this encounter Procedures Procedure Name Priority Date/Time Associated Diagnosis Comments EKG 12-LEAD Routine 03/16/2015 10:05 AM EDT EKG 12-LEAD Routine 01/24/2015 3:39 PM EDT Pre-op exam documented in this encounter Results * EKG 12 Lead (01/24/2015 3:39 PM EDT) Ventricular rate 68 BPM MUSE SYSTEM Atrial Rate 68 BPM MUSE SYSTEM P-R Interval 164 ms MUSE SYSTEM QRS Duration 154 ms MUSE SYSTEM Q-T Interval 424 ms MUSE SYSTEM QTC Calculated (Bezet) 450 ms MUSE SYSTEM Calculated P Jasper 75 degrees MUSE SYSTEM Calculated R Jasper -69 degrees MUSE SYSTEM Calculated T Jasper 28 degrees MUSE SYSTEM INTERPRETATION Normal sinus rhythm Right bundle branch block Left anterior fascicular block Bifascicular block Moderate voltage criteria for LVH, may be normal variant Cannot rule out Septal infarct (cited on or before 11-NOV-2011) When compared with ECG of 11-NOV-2011 00:37, Questionable change in initial forces of Septal leads Confirmed by MD DENISE, MYLENE ([id number]) on 01/25/2015 8:38:19 AM MUSE SYSTEM 01/24/2015 3:39 PM EDT 01/25/2015 8:38 AM EDT Reji Newberry MD ECG ORDERABLES MUSE SYSTEM documented in this encounter Visit Diagnoses Diagnosis Pre-op exam Preoperative examination, unspecified documented in this encounter Care Teams Acid Crane Operator Relationship Specialty Start Date End Date Reji Newberry MD [facility] [address] [place] [address] PCP - General 02/12/12 06/27/15 documented as of this encounter
--- OUTSIDE RECORDS SUMMARY | 2024-07-09 11:18 | XMS_ITS | Encounter Summary ---
Author Organization [facility] [place] [address] Care Team Providers Care Refrigerating Oiler Name Role Phone Reji Adams MD Primary Care Provider [phone] Encounter Details Date Type Department Care Team (Late st Contact Info) Description 05/03/2015 Interpretation Only Radiology [address] [place] [address] [place] [phone] Unknown None Social History Tobacco Use Types [...] 11:30 AM EDT Office [place] [phone] Charline Ziegler MD [facility] [place] [address] documented as of this encounter Procedures Procedure Name Priority Date/Time Associated Diagnosis Comments XR CERVICAL SPINE 1 VIEW Routine 05/03/2015 10:28 AM EDT documented in this encounter Results * XR Cervical Spine 1 View (05/03/2015 10:28 AM EDT) Anatomical Region Laterality Modality C-spine N/A Radiographic Chelsea ging 05/03/2015 10:2 8 AM EDT Narrative 05/03/2015 10:28 AM EDT APD Historical Result Principal Data Reporting Analyst: ??DARA ??GIL CERVICAL SPINE - ONE VIEW: INDICATION: ??Status post C3-4, C4-5 ACDF on January 31, 2015. COMPARISON: ??Cervical spine, March 14, 2015. FINDINGS: Single neutral lateral view of the cervical spine is obtained. ??There is an anterior plated fusion from C3 through C5 with intervertebral disc spacers. ??There is 2 mm of retrolisthesis of C2 on C3, unchanged, and 2 mm of anterolisthesis of C5 on C6. ??There is narrowing of the joint space at C6-7 with anterior spondylosis. ??There is no interval change in hardware positioning. ??There is no finding to suggest loosening or fracture. ??There is facet arthropathy at C3-4 and C4-5. Ovoid, 17-mm calcific density persists at the level of the submandibular gland. IMPRESSION: Stable appearance to the fusion effort on this single view. Dara Cordero DO [place] [id number] CC: Procedure Note Unknown - 01/25/2019 APD Historical Result Principal Data Reporting Analyst: DARA CORDERO CERVICAL SPINE - ONE VIEW: INDICATION: Status post C3-4, C4-5 ACDF on January 31, 2015. COMPARISON: Cervical spine, March 14, 2015. FINDINGS: Single neutral lateral view of the cervical spine is obtained. There isan anterior plated fusion from C3 through C5 with intervertebral disc spacers. There is 2 mmof retrolisthesis of C2 on C3, unchanged, and 2 mm of anterolisthesis of C5 on C6. There is narrowing ofthe joint space at C6-7 with anterior spondylosis. There is no interval change in hardwarepositioning. There is no finding to suggest loosening or fracture. There is facet arthropathy at C3-4 andC4-5. Ovoid, 17-mm calcific density persists at the level of the submandibulargland. IMPRESSION: Stable appearance to the fusion effort on this single view. Dara Cordero DO [place] [id number] CC: Unknown IMG DX ORDERABLES documented in this encounter Visit Diagnoses Not on filedocumented in this encounter Care Teams Refrigerating Oiler Relationship Specialty Start Date End Date Reji Adams MD [facility] GENERAL [place] [address] PCP - General General Internal Medicine 07/13/15 documented as of this encounter
--- OUTSIDE RECORDS SUMMARY | 2024-07-09 11:18 | XMS_ITS | Encounter Summary ---
Author Organization [facility] [place] [address] Care Team Providers Care Desktop Architect Name Role Phone Reji Adams MD Primary Care Provider [phone] Encounter Details Date Type Department Care Team (Late st Contact Info) Description 01/31/2015 Interpretation Only Radiology [address] [place] [address] [place] [phone] Unknown None Social History Tobacco Use Types [...] 11:30 AM EDT Office [place] [phone] Charline Ziegler MD [facility] [place] [address] documented as of this encounter Procedures Procedure Name Priority Date/Time Associated Diagnosis Comments XR FLUORO NO RAD <1HR - RADIOLOGY USE Routine 01/31/2015 6:32 AM EDT documented in this encounter Results * XR Fluoro <1Hr - Radiology Use (01/31/2015 6:32 AM EDT) Anatomical Region Laterality Modality N/A Radiographic Chelsea ging 01/31/2015 6:32 AM EDT Narrative 01/31/2015 6:32 AM EDT APD Historical Result Principal Development Lead: ??MORIS ?ROMIE INTRAOPERATIVE FLUOROSCOPY: A total of 4.5 seconds (66.35 mrad) of intraoperative fluoroscopy was used by Dr Casanova. ??There was no Radiologist present during the exam. Two spot images document the procedure. ??Spot images document placement of anterior plate and screws at C3, C4, and C5 with intervertebral spacers at C3-4 and C4-5. Moris Anderson MD [facility] [id number] CC: Procedure Note Unknown - 01/25/2019 APD Historical Result Principal Development Lead: MORIS ANDERSON INTRAOPERATIVE FLUOROSCOPY: A total of 4.5 seconds (66.35 mrad) of intraoperative fluoroscopy was usedby Dr Casanova. There was no Radiologist present during the exam. Two spot images document theprocedure. Spot images document placement of anterior plate and screws at C3, C4, and C5 withintervertebral spacers at C3-4 and C4-5. Moris Anderson MD [facility] [id number] CC: Unknown IMG FLUORO ORDERABLE S documented in this encounter Visit Diagnoses Not on filedocumented in this encounter Care Teams Desktop Architect Relationship Specialty Start Date End Date Reji Adams MD [facility] GENER[place] [address] PCP - General General Internal Medicine 07/13/15 documented as of this encounter
--- OUTSIDE RECORDS SUMMARY | 2024-07-09 11:18 | XMS_ITS | Encounter Summary ---
Author Organization [facility] Address [facility] [place] [address] Care Team Providers Care Oxide Furnace Tender Name Role Phone Reji Adams MD Primary Care Provider [phone] Reason for Visit * Reason Comments Right Hand Pain Encounter Details Date Type Department Care Team (Late st Contact Info) Description 12/12/2014 2:05 PM EDT [place] [address] Bebeto Lomeli MD [facility] [place] [address] Numbness; Cervical stenosis of spinal canal Discharge Disposition: Home Social History Tobacco Use [...] Sign Reading Time Taken Comments Blood Pressure 126/84 12/12/2014 2:03 PM EDT Pulse 68 12/12/2014 2:03 PM EDT Temperature - - Respiratory Rate - - Oxygen Saturation - - Inhaled Oxygen Concentration - - Weight 99.8 kg (220 lb) 12/12/2014 2:03 PM EDT s tated Height 180.3 cm (5' 11) 12/12/2014 2:03 PM EDT stated Body Mass Index 30.68 12/12/2014 2:03 PM EDT documented in this encounter Progress Notes * Cherise Fuentes PA - 12/12/2014 3:29 PM EDT This 69-year-old gentleman comes in today for followup of right hand numbness. He had a carpal tunnel injection last visit by Abbie Butcher. Though he had some initial numbness in his hand from the injection, he is really unclear if it provided any significant numbness or he definitely feels as if it did not give any relief, though he does admit he fell on the hand two days after the injection. He continues to complain of numbness. It starts in the back of his hand though and forearm, goes into the index and long fingers onto the palmar side of the finger. He also complains of some numbness along the forearm on the right side. He has difficulty doing buttons and zippers and finds that he drops things and has trouble gripping a soda can. He has a history of spinal stenosis. Electrical studies done show median motor latency of the median nerve at 5.1 at the wrist. No clear cut evidence of cervical radiculopathy. The patient was seen and examined with Dr. Lomeil today. Provocative testing for carpal tunnel does not really seem to exacerbate his symptoms. He does have decreased range of motion of his neck making Spurling's testing difficult to assess. The patient also has a history of previous carpal tunnel release about 30 years ago. IMPRESSION: Right hand numbness, question cervical origin versus recurrent carpal tunnel syndrome. TREATMENT: It was explained to Mr. Mckeon that it is really not clear cut if this is recurrent carpal tunnel or may be coming from his cervical stenosis. He does have an appointment in the spine center coming up on January 04. We have recommended that he see them for evaluation first and get their input as to if this is more radicular in nature. If they do not feel it is and that it is more a recurrent carpal tunnel, we will be happy to see him back. documented in this encounter Plan of Treatment Upcoming Encounters Date Type Department Care Team (Late st Contact Info) Description 12/15/2024 11:30 AM EDT Office [place] [address] Charline Ziegler MD [facility] [place] [address] documented as of this encounter Visit Diagnoses Diagnosis Numbness Disturbance of skin sensation Cervical stenosis of spinal canal Spinal stenosis in cervical region documented in this encounter Care Teams Oxide Furnace Tender Relationship Specialty Start Date End Date Reji Adams MD [facility] [place] [address] PCP - General 02/12/12 06/27/15 documented as of this encounter
--- OUTSIDE RECORDS SUMMARY | 2024-07-09 11:18 | XMS_ITS | Encounter Summary ---
Author Organization [facility] [place] [address] Care Team Providers Care Relief Man Name Role Phone Reji Adams MD Primary Care Provider [phone] Reason for Referral * Surgical (Routine) - Complete-Ref Provider Notified Specialty Diagnoses / Procedures Referred By Contact Referred To Contact Orthopaedic Surgery / Orthopaedics Diagnoses Carpal tunnel syndrome on right Reji Adams MD [facility] GENERAL [place] [address] [facility] Orthopa[facility]ics [address] [place] [phone] Referral ID Status Reason Start Date Expiration Date Visits Requested Visits Authorized [id number] Complete-Ref Provider Notified Consult, Test & Treat 11/04/2014 11/04/2015 1 1 Reason for Visit * Reason Comments Results on EMG Encounter Details Date Type Department Care Team (Late st Contact Info) Description 11/04/2014 9:45 AM EDT Follow-Up Internal Medicine at [address] [address] Reji Adams MD [facility] [address] [place] [address] Need for prophylactic vaccination against Streptococcus pneumoniae (pneumococcus); Carpal tunnel syndrome on right Discharge Disposition: Home Social History Tobacco [...] Sign Reading Time Taken Comments Blood Pressure 133/81 11/04/2014 9:49 AM EDT Pulse 72 11/04/2014 9:49 AM EDT Temperature 36.3 ??C (97.4 ??F) 11/04/2014 9:49 AM ED T Respiratory Rate - - Oxygen Saturation 100% 11/04/2014 9:49 AM EDT Inhaled Oxygen Concentration - - Weight 101.2 kg (223 lb) 11/04/2014 9:49 AM EDT Height 180.3 cm (5' 11) 11/04/2014 9:49 AM EDT Body Mass Index 31.1 11/04/2014 9:49 AM EDT documented in this encounter Progress Notes * Reji Adams MD - 11/04/2014 9:52 AM EDT ESTABLISHED PATIENT VISIT I. HISTORY a. Reason(s) for Visit: Ken Mckeon 69 y.o. male who presents today due to complaint(s) of: Chief Complaint Patient presents with ??? Results on EMG b. History of Present Illness:[] Pt seen by Dr Mcneil on 09/26 for numbness and clumsiness of R hand and possibly new sxs of neuropathyin hand and feet. Had decreased pin prick and vibratory sensation bilateral feet. SPEP/UPEP, B12/folate, hba1c, Cbc,BMP, syphilis, Crp were all normal (B12 elevated) with a CRP of 1.2. 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 No clear cut cervical radiculopathy but can not be entirely excluded. Recommended considering OT and possibly ortho referral for potentially steroid injection in the CT. c. Review of Systems: Constitutional - no [...] PMH Patient Active Problem List Diagnosis ??? Peripheral [...] replacement TKR Right knee in 2007 Soc: History Substance Use Topics ??? Smoking status: Never Smoker ??? Smokeless tobacco: Current User Types: Chew Comment: 3 cans/ week. ??? Alcohol Use: 0.6 oz/week 1 Cans of beer per week II. PHYSICAL EXAM: BP 133/81 Pulse 72 Temp(Src) 36.3 ??C (97.4 ??F) (Oral) Ht 180.3 cm (5' 11) Wt 101.152 kg (223 lb) BMI 31.12 kg/m2 SpO2 100% General - No acute distress, conversing without difficulty. Eyes - EOMI. No scleral icterus Neck - No lymphadenopathy, supple, no masses Extremities - No clubbing, cyanosis or edema. III. ASSESSMENT/PLAN:Ken Mckeon 69 y.o. male presenting to discuss EMG results. EMG results areconsistent with CTS on the R. Unclear to me if there is a surgical option given has had release in the past. Will ask ortho hand for opinion for treatment options. Pt states does not tolerate splint at night. Also discussed his cervical stenosis but I don't feel that is the primary driver supervisor of his R hand sxs given the median nerve distribution and EMG findings. However, L sided sxs are consistent with cervical disease. He has MRI on Friday and then f/u with [facility] Neurology. Ken was seen today for results. Diagnoses and associated orders for this visit: Need for prophylactic vaccination against Streptococcus pneumoniae (pneumococcus) - PNEUMOCOCCAL CONJUGATE VACCINE 13-VALENT Carpal tunnel syndrome on right - Referral to Orthopaedics hand F/u pending results Meds reconciled documented in this encounter Plan of Treatment Upcoming Encounters Date Type Department Care Team (Late st Contact Info) Description 12/15/2024 11:30 AM EDT Office [place] [address] Charline Ziegler MD [facility] [place] [address] Scheduled Referrals Name Type Priority Associated Diagnoses Order Schedule Referral to Orthopaedics Outpatient Referral Routine Carpal tunnel syndrome on right Ordered: 11/04/2014 documented as of this encounter Visit Diagnoses Diagnosis Need for prophylactic vaccination against Streptococcus pneumoniae (pneumococcus) Need for prophylactic vaccination against streptococcus pneumoniae (pneumococcus) Carpal tunnel syndrome on right Carpal tunnel syndrome documented in this encounter Care Teams Relief Man Relationship Specialty Start Date End Date Reji Adams MD [facility] [place] [address] PCP - General 02/12/12 06/27/15 documented as of this encounter
--- OUTSIDE RECORDS SUMMARY | 2024-07-09 11:18 | XMS_ITS | Encounter Summary ---
Author Organization [facility] Address [facility] [place] [address] Care Team Providers Care Speech Assistant Name Role Phone Reji Adams MD Primary Care Provider [phone] Reason for Visit * Reason Comments Right Hand Pain Encounter Details Date Type Department Care Team (Late st Contact Info) Description 01/13/2015 9:00 AM EDT Office [place] [address] Abbie Butcher PA [facility] [place] [address] Right hand pain Discharge Disposition: Home Social History Tobacco [...] Reading Time Taken Comments Blood Pressure 110/69 01/13/2015 9:27 AM EDT Pulse 66 01/13/2015 9:27 AM EDT Temperature - - Respiratory Rate - - Oxygen Saturation - - Inhaled Oxygen Concentration - - Weight 101.2 kg (223 lb) 01/13/2015 9:27 AM EDT stated Height 180.3 cm (5' 11) 01/13/2015 9:27 AM EDT stated Body Mass Index 31.1 01/13/2015 9:27 AM EDT documented in this encounter Progress Notes * Abbie Butcher PA - 01/13/2015 9:46 AM EDT PATIENT NAME: Ken Mckeon AGE: 69 y.o. MR#: [id number] DATE OF VISIT: 01/13/2015 DATE OF INJURY/ONSET: Chronic STAFF: Dr. Lomeli CHIEF COMPLAINT: follow up for right hand pain HISTORY OF PRESENT ILLNESS: Mr. Mckeon is a 69 y.o. year old male who comes into clinic today for follow up regarding the right hand. I evaluated this patient in October for right hand numbness. He had nerve conduction studies that showed prolonged median motor nerve latencies, but he has a history of a prior carpal tunnel release. He also has cervical stenosis, but his EMG did not show any clear-cutevidence of a radiculopathy. He has since been seen by a mgmt specialist and is scheduled to undergo spine surgery for his spinal stenosis. He continues to have hand numbness. His hand numbness symptoms are different now than they were prior to his carpal tunnel surgery. He did not have a dramatic improvement after his carpal tunnel injection either. Shortly after his carpal tunnel injection he fell and developed some pain over the thenar aspect of his palm. He was offered x-rays at his last visit, but declined. He presents today with films since he continues to remain symptomatic. PHYSICAL EXAM: Mr. Mckeon is alert and oriented. He appears in no acute discomfort and is resting comfortably in the exam room. Inspection: No erythema, ecchymosis, or swelling. Palpation: He is tender over the thenar aspect of the palm and mildly over the CMC joint. At times he has pain that radiates towards the index and long fingers, but does not extend past the MCP joints. He is nontender over the ulnar aspect of his wrist. ROM/Strength: He is able to perform active wrist, thumb, and finger range of motion. He finds that he is developing weakness of his thumb and index fingers in particular. No palpable crepitus. Orthopedic testing: Negative CMC grind. Negative Soraida's. Neurovascular: He continues to have numbness over the dorsal and palmar aspect of his hand that extends into the thumb, index, and long fingers. Hand remained well perfused. RADIOLOGICAL STUDIES: X-rays of the right hand show no acute injuries. 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 He also has some mild arthritic changes at the CMC joint of the thumb. ASSESSMENT: Right hand pain of unclear etiology, mild CMC joint arthritis PLAN: I reviewed the x-rays with the patient today. The exact cause of his discomfort remains unclear. He does have some arthritis in this area that may be contributing to his pain. His symptoms may also be related to dysesthetic pain related to nerve compression. We discussed symptomatic management to include soft splints, topical pain relievers, heat, ice, and activity modification. We will hold off on any further treatment until after he has had a chance to recover from his spine surgery. Ifhe continues to have hand numbness we may need to revisit his carpal tunnel. He did not have a positive response to his injection and we discussed that because of this and the fact that his symptoms a t this point are somewhat atypical for carpal tunnel syndrome it is difficult to say that revision carpal tunnel surgery would be of benefit. He will return for follow up as needed. The patient understands to contact us if they have any other questions or concerns. The above documentation was completed using [employer] voice recognition software. documented in this encounter Plan of Treatment Upcoming Encounters Date Type Department Care Team (Late st Contact Info) Description 12/15/2024 11:30 AM EDT Office [place] [address] Charline Ziegler MD [facility] [place] [address] documented as of this encounter Visit Diagnoses Diagnosis Right hand pain Pain in limb documented in this encounter Care Teams Speech Assistant Relationship Specialty Start Date End Date Reji Adams MD [facility] [place] [address] PCP - General 02/12/12 06/27/15 documented as of this encounter
--- OUTSIDE RECORDS SUMMARY | 2024-07-09 11:18 | XMS_ITS | Encounter Summary ---
Author Organization [facility] [place] [address] Care Team Providers Care Manager Php Name Role Phone Reji Adams MD Primary Care Provider [phone] Reason for Visit * Reason Onset Date Comments Other 08/23/2014 Encounter Details Date Type Department Care Team (Late st Contact Info) Description 08/23/2014 Telephone Internal Medicine at [address] [address] Reji Adams MD [facility] [place] [address] Other Social History Tobacco Use Types Packs/Day [...] encounter Miscellaneous Notes * Telephone Encounter - Chacha Armstrong - 08/23/2014 10:44 AM EST Called patient leaving a message answering his billing question for DOS 11-19-13 was billed as annual not Wellness visit as medicare will pay. Conveyor Worker reviewed and was not able to make billing corrections. Chacha Armstrong documented in this encounter Plan of Treatment Upcoming Encounters Date Type Department Care Team (Late st Contact Info) Description 12/15/2024 11:30 AM EDT Office [place] [address] Charline Ziegler MD [facility] [place] [address] documented as of this encounter Visit Diagnoses Not on filedocumented in this encounter Care Teams Manager Php Relationship Specialty Start Date End Date Reji Adams MD [facility] [place] [address] PCP - General 02/12/12 06/27/15 documented as of this encounter
--- OUTSIDE RECORDS SUMMARY | 2024-07-09 11:19 | XMS_ITS | Encounter Summary ---
Author Organization Formerly [facility], Later [facility] Address [facility] [place] [address] Care Team Providers Care Edge Dyer Name Role Phone Reji Adams MD Primary Care Provider [phone] Reason for Visit * Reason Comments Left Shoulder Pain Encounter Details Date Type Department Care Team (Late st Contact Info) Description 11/30/2013 8:00 AM EDT Office [place] [address] Abbie Butcher PA [facility] [place] [address] Bilateral shoulder pain; Rotator cuff tendinitis, left Discharge Disposition: Home Social History Tobacco Use [...] Sign Reading Time Taken Comments Blood Pressure 121/84 11/30/2013 8:31 AM EDT Pulse 74 11/30/2013 8:31 AM EDT Temperature - - Respiratory Rate - - Oxygen Saturation - - Inhaled Oxygen Concentration - - Weight 97.5 kg (215 lb) 11/30/2013 8:31 AM EDT Height 179.1 cm (5' 10.5) 11/30/2013 8:31 AM ED T Body Mass Index 30.41 11/30/2013 8:31 AM EDT documented in this encounter Progress Notes * Abbie Butcher PA - 11/30/2013 8:52 AM EDT PATIENT NAME: Ken Mckeon AGE: 68 y.o. MR#: [id number] DATE OF VISIT: 11/30/2013 DATE OF INJURY/ONSET: Chronic STAFF: Dr. Perkins CHIEF COMPLAINT: follow up for left shoulder pain HISTORY OF PRESENT ILLNESS: Mr. Mckeon is a 68 y.o. year old male who comes into clinic today for follow up regarding the left shoulder. He presents today for a subacromial cortisone injection for his left shoulder pain. He has had an MRI which revealed rotator cuff tendinopathy and bursitis, but no full-thickness tear. At one point he was also having symptomatic acromioclavicular joint arthropathy, but this does not as much of an issue. PHYSICAL EXAM: Mr. Mckeon is alert and oriented. He appears in no acute discomfort and is resting comfortably in the exam room. RADIOLOGICAL STUDIES: No new studies, previous MRI was reviewed ASSESSMENT: Left rotator cuff tendinitis, bursitis, AC joint arthropathy, biceps tendinopathy/subluxation PLAN: Please see my injection note below. We discussed that if he continues to remain symptomatic despite the subacromial cortisone injection, he may have additional benefit from a fluoroscopy guidedglenohumeral or acromioclavicular joint depending on the location of his symptoms. He is going to gradually get back into activity over the next several weeks after the injection. He also was recently evaluated for hand pain and is considering having an injection for this complaint as well. He willreturn for follow up in 6 weeks if his symptoms persist. He will call to schedule this appointment.The patient understands to contact us if they have any other questions or concerns. The above documentation was completed using Xenith voice recognition software. PROCEDURE NOTE: Left SUBACROMIAL BURSA INJECTION A time-out was performed [...] 11:30 AM EDT Office [place] [address] Charline Ziegler MD [facility] [place] [address] documented as of this encounter Visit Diagnoses Diagnosis Bilateral shoulder pain Pain in joint, shoulder region Rotator cuff tendinitis, left documented in this encounter Administered Medications Inactive Administered Medications - up to 3 most recent administrations Medication Order MAR Action Action Date Dose Rate Site lidocaine (XYLOCAINE) 20 mg/mL (2 %) injection 80 mg 80 mg, Subcutaneous, ONCE, 1 dose, On Fri11/30/13 at 0915, In-Office injection into the subacromial space of the shoulder., Routine Given 11/30/2013 8:58 AM EDT 80 mg triamcinolone acetonide (KENALOG-40) injection 40 mg 40 mg, Intra-articular, ONCE, 1 dose, On Fri11/30/13 at 0915, Routine Given 11/30/2013 8:58 AM EDT 40 mg documented in this encounter Care Teams Edge Dyer Relationship Specialty Start Date End Date Reji Adams MD [facility] [place] [address] PCP - General 02/12/12 06/27/15 documented as of this encounter
--- OUTSIDE RECORDS SUMMARY | 2024-07-09 11:19 | XMS_ITS | Encounter Summary ---
Author Organization [facility] [place] [address] Care Team Providers Care Belt Worker Name Role Phone Reji Adams MD Primary Care Provider [phone] Encounter Details Date Type Department Care Team (Late st Contact Info) Description 01/17/2014 External [place] [phone] Celia Griffin AUD [facility] [place] [address] Social History Tobacco Use Types Packs/Day Years [...] 11:30 AM EDT Office [place] [phone] Charline Ziegler MD [facility] [place] [address] documented as of this encounter Procedures Procedure Name Priority Date/Time Associated Diagnosis Comments AUDIOLOGY SCAN Routine 01/12/2014 documented in this encounter Results * Scan Doc: Audiology (01/12/2014) Celia Griffin AUD MEDIA MGR SCAN EXT ORDR/RSLT documented in this encounter Visit Diagnoses Not on filedocumented in this encounter Care Teams Belt Worker Relationship Specialty Start Date End Date Reji Adams MD [facility] [address] [facility] [address] PCP - General 02/12/12 06/27/15 documented as of this encounter
--- OUTSIDE RECORDS SUMMARY | 2024-07-09 11:19 | XMS_ITS | Encounter Summary ---
Author Organization [facility] [place] [address] Care Team Providers Care Medical Videographer Name Role Phone Reji Adams MD Primary Care Provider [phone] Reason for Referral * Physical Therapy (Routine) - Closed Specialty Diagnoses / Procedures Referred By Duglas arizmendi Referred To Contact Physical Therapy Diagnoses Neck pain Myra Avery MD [facility] GENERAL [place] [address] [facility] [place] [address] Referral ID Status Reason Start Date Expiration Date V isits Requested Visits Authorized [id number] Closed Evaluate and Treat 10/11/2013 04/09/2014 1 1 Reason for Visit * Reason Comments Neck Pain for a week, did go t o the ER on friday because it got worse, did take flexoril, did not do much Encounter Details Date Type Department Care Team (Late st Contact Info) Description 10/11/2013 3:15 PM EDT Office Visit Internal Medicine at [address] [address] Myra Avery MD [facility] [place] [address] Neck pain (Primary Dx) Discharge Disposition: Home Social History Tobacco Use [...] Sign Reading Time Taken Comments Blood Pressure 122/68 10/11/2013 3:30 PM EDT Pulse 69 10/11/2013 3:30 PM EDT Temperature 36.7 ??C (98 ??F) 10/11/2013 3:30 PM EDT Respiratory Rate - - Oxygen Saturation 100% 10/11/2013 3:30 PM EDT Inhaled Oxygen Concentration - - Weight 101.2 kg (223 lb) 10/11/2013 3:30 PM EDT Height 180.3 cm (5' 11) 10/11/2013 3:30 PM EDT reported Body Mass Index 31.1 10/11/2013 3:30 PM EDT documented in this encounter Progress Notes * Reji Adams MD - 10/11/2013 3:57 PM EDT The case was discussed at the time of the visit or immediately after the visit. The assessment and plan were formulated in discussion with me and I agree with them as documented. I have reviewed the history, physical exam, assessment and plan with the resident. Major issues discussed today: Seen in ED on Friday for acute on chronic neck pain. Switch from foam to a filled pillow and then pain seemed to worsen. Trialed some old flexeril pills but did not seem to help much. Has been using aleve with benefit. Does not radiate. MRI from 2012 that showed multiple Degenerative changes. Seen by spine center 2012 with options including injections etc. Plan: PT referral Flexeril Ice/heat Consider high dose ibuprofen * Myra Avery MD - 10/11/2013 3:37 PM EDT GIM Follow-Up Visit Note Chief Complaint Patient presents with ??? Neck Pain for a week, did go to the ER on friday because it got worse, did take flexoril, did not do much HPI: Mr. Mckeon is a 68M w/ h/o chronic neck pain, here today for follow-up after an ED visit on 10/08 for acute worsening of his neck pain. Notes that the only change at home last week was changing from a foam to a filled pillow. Endorses severe neck pain with any slight movements of the neck, no radiation down back or down arms. Says that his neck feels locked up. Tried some old flexeril he had at home but is over 2 years old. Has tried scheduled aleve Q8H with some mild benefit. Denies any vision changes, numbness or tingling, weakness of arms or legs, or fevers/chills. MRI of neck was done in 08/2012 that showed multilevel degenerative changes and a disc osteophyte at the level of C3-C4. Pt last was evaluated at the spine center for neck pain in 08/2012 - despite his imaging, he did not have any myelopathic s/sx. A variety of options were discussed with pt including physical therapy (which pt only did for a short period of time), branch blocks, cervical epidural steroid injections, or potential surgery, which the pt was not interested in. ROS: Constitutional: -fevers, -chills, -nightsweats, -fatigue/malaise, -weight changes HEENT: -sore throat, -runny nose, -changes in vision, -dizziness CVS: -chest pain, -palpitations, -MARTIN, -lightheadedness Resp: -SOB, -cough, -wheeze GI: -abdominal pain, -changes in bowel habits, -blood in stool, -black tarry stools, -nausea/emesis : -dysuria, -hematuria, -changes in frequency, -changes in stream, -incontinence MSK: -myalgias, +neck pain as above, -swelling Skin: -rashes, -pruritis Neuro: -headaches, -focal weakness, -tremors, -seizures Past Medical History: Patient Active Problem List Diagnosis Code ??? 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 Cataract extraction status of left eye V45.61 ??? OA (osteoarthritis) of knee 715.96 ??? Lightheadedness 780.4 ??? 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 Anxiety 300.00 ??? Neck pain 723.1 ??? Insomnia 780.52 ??? Cervical radiculopathy 723.4 ??? Bilateral shoulder pain 719.41 ??? Depression 311 ??? Back pain 724.5 ??? Ileitis 558.9 Medications: Outpatient Encounter Prescriptions as of 10/11/2013 Medication Sig Dispense Refill ??? ALPRAZolam (XANAX) 0.25 mg tablet Take 0.25 mg by mouth 3 times daily as needed. ??? aspirin 81 mg EC tablet Take 81 mg by mouth daily. ??? multivitamin (THERAGRAN) tablet Take 1 tablet by mouth daily. ??? Saw Berg[place] 500 mg capsule Take 500 mg by mouth daily. ??? Mavis Extract 500 mg Cap Take 1 capsule by mouth daily. ??? naproxen sodium (ALEVE) 220 mg tablet Take 220 mg by mouth as needed. Allergies: Allergies Allergen Reactions ??? Penicillins Tongue swelling Physical Exam: Filed Vitals: 10/11/13 1530 BP: 122/68 Pulse: 69 Temp: 36.7 ??C (98 ??F) Gen: Pleasant, in NAD CVS: RRR, nml S1 S2, no m/r/g Resp: CTAB MSK: No midline tenderness or paraspinal tenderness. Limited ROM of cervical spine in all directions, has full ROM of thoracic and lumbar spines. Neuro: Alert and oriented, CN 2-12 grossly intact, power 5/5 bilaterally in upper and lower extremities, 2+DTRs throughout. Gait within normal limits. A/P: 68M w/ h/o chronic neck pain, here today for follow-up after an ED visit on 10/08 for acute worsening of his neck pain with known multilevel degenerative changes and osteophyte at C3-C4. Neurological exam unremarkable and non-focal today. Discussed mainstay of therapy was physical therapy, which he was amenable to restarting. Pt has been thinking more about the steroid injection, but plans to havehis left shoulder injected in the spring. Will continue with exercises at home and trial an up to date prescription of flexeril for muscle spasm. Plan summarized below: - Flexeril 10mg TID PRN - Offered higher dose ibuprofen 800mg TID, which he declined - Referral for physical therapy - Pt will continue with exercises at home - RTC PRN Patient discussed with Dr. Adams. Myra Avery PGY-3 Internal Medicine Pager [phone] documented in this encounter Plan of Treatment Upcoming Encounters Date Type Department Care Team (Late st Contact Info) Description 12/15/2024 11:30 AM EDT Office Visit [place] [address] Charline Ziegler MD [facility] [place] [address] Scheduled Referrals Name Type Priority Associated Diagnoses Orde r Schedule Referral to Physical Therapy Outpatient Referral Routine Neck pain Ordered: 10/11/2013 documented as of this encounter Visit Diagnoses Diagnosis Neck pain- Primary Cervicalgia documented in this encounter Care Teams Medical Videographer Relationship Specialty Start Date End Date Reji Adams MD [facility] [place] [address] PCP - General 02/12/12 06/27/15 documented as of this encounter
--- OUTSIDE RECORDS SUMMARY | 2024-07-09 11:19 | XMS_ITS | Encounter Summary ---
Author Organization [facility] Address [facility] [place] [address] Care Team Providers Care Carton Catcher Name Role Phone Reji Adams MD Primary Care Provider [phone] Reason for Visit * Reason Comments Urinary Frequency Fatigue Diabetes Encounter Details Date Type Department Care Team (Late st Contact Info) Description 02/14/2014 10:45 AM EDT Office Visit Internal Medicine at [address] [address] Shante Richardson MD [facility] [place] [address] Urinary frequency (Primary Dx) Discharge Disposition: Home Social History [...] Sign Reading Time Taken Comments Blood Pressure 117/77 02/14/2014 10:54 AM EDT Pulse 81 02/14/2014 10:54 AM EDT Temperature 36.9 ??C (98.4 ??F) 02/14/2014 10:54 AM E DT Respiratory Rate - - Oxygen Saturation 98% 02/14/2014 10:54 AM EDT Inhaled Oxygen Concentration - - Weight 101.2 kg (223 lb) 02/14/2014 10:54 AM EDT Height 180.3 cm (5' 11) 02/14/2014 10:54 AM EDT Body Mass Index 31.1 02/14/2014 10:54 AM EDT documented in this encounter Progress Notes * Shante Richardson MD - 02/15/2014 3:47 PM EDT Subjective: Patient ID: Ken Mckeon is a 68 y.o. male. Chief Complaint Patient presents with ??? Urinary Frequency ??? Fatigue ??? Diabetes HPI Patient with h/o prostatitis with SO of urinary frequency as above. He has some mild pelvic pressure. No penile discharge. Review of Systems Constitutional: Positive for fatigue. Negative for fever. Gastrointestinal: Negative for abdominal pain. Genitourinary: Positive for frequency, decreased urine volume and difficulty urinating. Negative for discharge and penile pain. Objective: Physical Exam Vitals reviewed. Constitutional: No distress. HENT: Head: Atraumatic. Abdominal: Soft. He exhibits no distension. There is no tenderness. BP 117/77 Pulse 81 Temp 36.9 ??C (98.4 ??F) (Oral) Ht 180.3 cm (5' 11) Wt 101.152 kg (223 lb) BMI 31.12 kg/m2 SpO2 98% U/A: normal Assessment and Plan: No problem-specific assessment & plan notes found for this encounter. Suspect recurrent prostatitis: Course of ciprofloxacin. * Tomas Dorado - 02/14/2014 11:06 AM EDT ESTABLISHED PATIENT VISIT I. HISTORY a. Reason(s) for Visit: Ken Mckeon 68 y.o. male who presents today due to complaint(s) of: Chief Complaint Patient presents with ??? Urinary Frequency ??? Fatigue ??? Diabetes b. History of Present Illness: He has had fatigue and frequent urination. The fatigue is old (comes and goes for last year), urinary symptom have been for 4-5 days. Going 7-8 times a day, 2-3 times at night. Urgency as well, no burning/pain. Usually sleeps through the night though. No increased thirst or polydipsia. No change inmedications. The fatigue is constant this last week. His sleep is ok, some nights great, other nights he can't fall asleep. Until recently with the increased urination though he had no trouble staying asleep. Notalways rested in the morning. No headaches. Tired during the day, but does not fall asleep accidentally or take naps. His depression is mild and his anxiety is chronic, but not any worse currently. He says that he had prostatitis in the past (7-8 years ago). Was fatigued then, can't remember about urination symptoms. Went away with antibiotics. c. Review of Systems: Constitutional - no fevers, chills, weight loss or gain. +fatigue Endocrine - No Polydipsia, Polyuria Gastrointestinal - No abdominal pain, nausea, heartburn, constipation, diarrhea, blood in stool - No burning. +increased frequency, urgency. Musculoskeletal - No weakness, myalgias, or arthralgias Neuro - no headache, numbness, or tingling Psych - +depression, anxiety d. [facility] Patient Active Problem List Diagnosis ??? Finger pain ??? Ileitis ??? Back [...] beer per week II. PHYSICAL EXAM: BP 117/77 Pulse 81 Temp 36.9 ??C (98.4 ??F) (Oral) Ht 180.3 cm (5' 11) Wt 101.152 kg (223 lb) BMI 31.12 kg/m2 SpO2 98% General - Well nourished, in no acute distress, conversing without difficulty. A&O x3. Head - atraumatic Eyes - No scleral icterus, no conjunctivitis. Abdomen/GI - Soft, nontender, not distended, normal active bowel sounds, no hsm or masses. Skin - no rashes or suspicious lesions Tests: urine dipstick normal III. ASSESSMENT/PLAN:Ken Mckeon 68 y.o. male presenting with urinary symptoms and fatigue. This is not a UTI (normal dipstick) or diabetes (no glucose in urine or other symptoms). BPH shouldnot be acute like this. All of his symptoms could be explained by prostatitis. As he expresses previous episodes with similar symptoms it is worthwhile to treat for this. -Urine culture -quinolone antibiotic for ~2 weeks documented in this encounter Plan of Treatment Upcoming Encounters Date Type Department Care Team (Late st Contact Info) Description 12/15/2024 11:30 AM EDT Office Visit [place] [address] Charline Ziegler MD [facility] [place] [address] documented as of this encounter Visit Diagnoses Diagnosis Urinary frequency- Primary documented in this encounter Care Teams Carton Catcher Relationship Specialty Start Date End Date Reji Adams MD [facility] [place] [place] [address] PCP - General 02/12/12 06/27/15 documented as of this encounter
--- OUTSIDE RECORDS SUMMARY | 2024-07-09 11:19 | XMS_ITS | Encounter Summary ---
Author Organization [facility] Address [facility] [place] [address] Care Team Providers Care Predatory Animal Trapper Name Role Phone Reji Adams MD Primary Care Provider [phone] Encounter Details Date Type Department Care Team (Late st Contact Info) Description 10/21/2013 3:15 PM EDT Follow-Up Physical Therapy at [facility] [address] [place] [address] Carmen Weiner TECHNOLOGY TRAINING ASSOCIATE [facility] PHYSICAL MEDICINE & [place] [address] Neck pain (Primary Dx) Social History Tobacco [...] as of this encounter Progress Notes * Carmen Weiner PTA - 10/21/2013 3:15 PM EDT Physical Therapy Progress Note Total treatment time: 30 minutes Total timed code treatment: 30 minutes Date of Exam/First Treatment: 10/13/2013 Date of onset: September 2013 Referring Provider: Reji Adams, Diagnosis: 1. Neck pain Medicare Certification period: 10/13/2013 - 12/13/2013 Follow up visit for patient with 1. Neck pain Medicare Therapy G-Code Date Tracking: (Update G-Code status every 10 visits or when code changes) 1 2 3 4 5 6 7 8 9 10 10/13 10/21 S: Patient reports he has been trying all different pillows, and has gone back to his original pillow at night for best sleeping O: Manual Therapy 20 min, therex 10 min ?? reviewed exercises, decreased intensity of chin tuck, refined mechanics with this exercise; scapretract added depress to decrease UT overuse; added resistance band to scap retract/depress in W ERdirection ?? STM cervicothoracic region including (B) UT A: Patient will benefit from continued manual therapy and therex. P: Continue physical therapy per PT POC and goals. GOALS: Therapy Short Term Goals ( 2 wk) Patient will... 1. be indep with home exercise program. 2. Pt will demonstrate compliance with postural ed Therapy Fdc Goals ( 8 wk) Patient will... 1. demo a decrease in self report disability by reducing NDI > 10 points. 2. Pt will report 0-4/10 neck pain with all ADLs 3. Pt will have 30% improved neck ROM in all directions to improve his ability to drive documented in this encounter Plan of Treatment Upcoming Encounters Date Type Department Care Team (Late st Contact Info) Description 12/15/2024 11:30 AM EDT Office Visit [place] [address] Charline Ziegler MD [facility] [place] [address] documented as of this encounter Visit Diagnoses Diagnosis Neck pain- Primary Cervicalgia documented in this encounter Care Teams Predatory Animal Trapper Relationship Specialty Start Date End Date Reji Adams MD [facility] GENERAL [place] [address] PCP - General 02/12/12 06/27/15 documented as of this encounter
--- OUTSIDE RECORDS SUMMARY | 2024-07-09 11:19 | XMS_ITS | Encounter Summary ---
Author Organization [facility] Address [facility] [place] [address] Care Team Providers Care Tool Grinder Name Role Phone Reji Adams MD Primary Care Provider [phone] Reason for Visit * Reason Comments Ear Problem Left Dizziness Encounter Details Date Type Department Care Team (Late st Contact Info) Description 04/04/2014 12:45 PM EDT Office [place] [address] Ashish Grimm PA [facility] [address] [place] [address] RANDALL (headache) (Primary Dx) Discharge Disposition: Home Social History [...] Reading Time Taken Comments Blood Pressure 105/69 04/04/2014 12:58 PM EDT Pulse 65 04/04/2014 12:58 PM EDT Temperature 36.6 ??C (97.9 ??F) 04/04/2014 12:58 PM E DT Respiratory Rate - - Oxygen Saturation - - Inhaled Oxygen Concentration - - Weight 102.1 kg (225 lb) 04/04/2014 12:58 PM EDT Height 180.3 cm (5' 11) 04/04/2014 12:58 PM EDT Body Mass Index 31.38 04/04/2014 12:58 PM EDT documented in this encounter Progress Notes * Ashish Grimm, MATT - 04/04/2014 1:29 PM EDT Ken Mckeon is 68 years of age and is being seen for chief complaint of intermittent discomfort that he describes as deep ear discomfort with discomfort and pain in the mormonism region on the left side. This is been going on for the last 8 months to one year on an intermittent basis. He does report a seems to be occurring intermittently throughout the day a can last up to 30 minutes. He is identified no provocative or palliative factors. He feels the pain is staying about the same but the frequency seems to be increasing. He has not noted any change in his other otologic symptoms such as tinnitus, hearing, or dizziness. When the pain is present in the mormonism if he does rub in that area it does hurt more. I've seen this patient in the past in 1997 for a unilateral tinnitus an asymmetrical hearing loss. This was evaluated with MRI scan which did rule out retrocochlear pathology. He was also having someslight disequilibrium and dizziness at that time. He reports that these symptoms are essentially the same to dizziness may be a bit worse. He notices that he feels more dizzy or a sense of disequilibrium when he closes his eyes in the shower. He also notes some dizziness if she bends over or stanceto quickly feels a little bit more lightheaded and dizzy in these instances. 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 His most recent audiologic evaluation demonstrates normal hearing in the right ear through 4000 Hz dropping to moderate loss of 8000. The left ear shows asymmetry between 250 and 1500 Hz becoming symmetrical between one and 2000 Hz and then dropping to a moderate sensorineural hearing loss 8000. His past medical history is significant for arthritis as mentioned. Social history he uses tobacco form of chewing tobacco a regular basis. On physical exam he appears healthy in no acute distress. Palpation of the neck reveals no palpable adenopathy or mass lesion. Oral cavity: Tongue, floor of mouth, buccal mucosa, buccal gutters, gums, palate, and posterior pharyngeal wall appear normal. Dentition in poor repair. Otologic exam reveals patent external auditory canals bilaterally without erythema or edema. The tympanic membranes both are translucent showing no evidence of middle ear pathology. Periauricular palpation does reveal some clicking in the left TMJ but no tenderness or pain. There is no tenderness to palpation of the mormonism region. There is no cord palpable in the mormonism region on the left side. Fiberoptic rhinoscopy was performed under topical lidocaine and Privine through the left nostril. No intranasal pathology was identified. The nasopharynx was found to be clear showing no evidence of mucosal or mass lesion. The laryngeal exam revealed normal base of tongue, epiglottis, and vocal cords. No mucosal lesion was identified. Impression: Intermittent left mormonism pain with occasional deep ear pain. I am unsure of the etiology but I do want to rule out any vasculitis such as temporal arteritis. I will be ordering an ESR andbe calling him with the result. If this is elevated most likely would recommend temporal artery biopsy. If normal I cannot entirely tell the patient with the pain is being caused from. I did offer physical therapy for his neck as she may be experiencing myofascial pain with elements of cervical vertigo. He would like to hold off on this at the present time. Ashish Grimm PA-C Department of Otolaryngology [facility] [address] Office Phone - documented in this encounter Plan of Treatment Upcoming Encounters Date Type Department Care Team (Late st Contact Info) Description 12/15/2024 11:30 AM EDT Office [place] [address] Charline Ziegler MD [facility] [place] [address] documented as of this encounter Procedures Procedure Name Priority Date/Time Associated Diagnosis Comments SEDIMENTATION RATE Routine 04/04/2014 1: 38 PM EDT RANDALL (headache) documented in this encounter Results * Sedimentation rate (04/04/2014 1:38 PM EDT) Sedimentation Rate Automated 3 0 - 15 mm/hr SOY LOMBARDIIUM Blood specimen (specimen) 04/04/2014 1:38 PM EDT 04/04/2014 1:51 PM EDT Narrative Resulting Agency Comment Spec In Lab Trace Marx MD [facility] documented in this encounter Visit Diagnoses Diagnosis RANDALL (headache)- Primary Headache documented in this encounter Care Teams Tool Grinder Relationship Specialty Start Date End Date Reji Adams MD [facility] [place] [address] PCP - General 02/12/12 06/27/15 documented as of this encounter
--- OUTSIDE RECORDS SUMMARY | 2024-07-09 11:19 | XMS_ITS | Encounter Summary ---
Author Organization [facility] Address [facility] [place] [address] Care Team Providers Care Applied Technologist Name Role Phone Reji Adams MD Primary Care Provider [phone] Reason for Visit * Reason Onset Date Comments Results 04/05/2014 Encounter Details Date Type Department Care Team (Late st Contact Info) Description 04/05/2014 Telephone [place] [address] Ashish Grimm PA [facility] [place] [address] Results Social History Tobacco Use Types Packs/Day [...] encounter Miscellaneous Notes * Telephone Encounter - Ashish Grimm PA - 04/05/2014 9:14 AM EDT Ken Mckeon is 68 years of age and was seen yesterday for left temporal pain, intermittent. ESR was obtained, and was found to be normal. I recommended to the patient should his symptoms increase in severity that he is to let his DrYas no or me know and the next it may be an imaging study. The patient was comfortable with this plan. Ashish Grimm PA-C Department of Otolaryngology [facility] [place] [address] Office Phone - documented in this encounter Plan of Treatment Upcoming Encounters Date Type Department Care Team (Late st Contact Info) Description 12/15/2024 11:30 AM EDT Office [place] [address] Charline Ziegler MD [facility] [place] [place] [address] documented as of this encounter Visit Diagnoses Not on filedocumented in this encounter Care Teams Applied Technologist Relationship Specialty Start Date End Date Reji Adams MD [facility] [place] [address] PCP - General 02/12/12 06/27/15 documented as of this encounter
--- OUTSIDE RECORDS SUMMARY | 2024-07-09 11:19 | XMS_ITS | Encounter Summary ---
Author Organization [facility] Address [facility] [place] [address] Care Team Providers Care Software Performance Engineer Name Role Phone Reji Adams MD Primary Care Provider [phone] Reason for Visit * Reason Comments Dizziness urine left a week ag o at [facility], culture sent came back okay Ear Fullness Encounter Details Date Type Department Care Team (Late st Contact Info) Description 01/03/2014 1:25 PM EDT Office Visit Internal Medicine at [place] [id number] Amrita Lozano MD [facility] [place] [address] Urine frequency (Primary Dx); Anxiety; Depression Discharge Disposition: Home Social History Tobacco Use [...] Sign Reading Time Taken Comments Blood Pressure 104/63 01/03/2014 1:37 PM EDT Pulse 93 01/03/2014 1:37 PM EDT Temperature 37.1 ??C (98.7 ??F) 01/03/2014 1:30 PM ED T Respiratory Rate - - Oxygen Saturation 97% 01/03/2014 1:30 PM EDT Inhaled Oxygen Concentration - - Weight 98.9 kg (218 lb) 01/03/2014 1:30 PM EDT Height - - Body Mass Index 30.84 11/30/2013 9:41 AM EDT documented in this encounter Patient Instructions * Patient Instructions* Amrita Lozano MD - 01/03/2014 2:07 PM EDT 1. Start with one wellbutrin in the am for 3 days then increase to twice daily 2. For allergies claritin 10 once a day in am documented in this encounter Progress Notes * Amrita Lozano MD - 01/03/2014 1:43 PM EDT ESTABLISHED PATIENT VISIT Chief Complaint Patient presents with ??? Dizziness urine left a week ago at [facility], culture sent came back okay ??? Ear Fullness Pt is a 68 y.o. who presents for follow up visit for multiple issues starting with fatigue, dizziness, some ear fullness and went to [facility] the other day, and had labs drawn forcbc , urine, thyroid and lyme disease. They found a tick in his back and he wasn't sure how long itwas on him for. He does have a lot of anxiety, depression that is low level and did not want medication for this iewellbutrin. He is taking xanax 0.25 mg 1/2 tablet at night time for sleep periodically/ he was diagnosed with panic attacks after his brother years ago. ROS: Constitutional - no fevers, chills, weight loss or gain, fatigue HEENT - No difficulty swallowing, hearing, No nasal congestion or postnasal drip Respiratory - No new SOB, MARTIN, wheeze, cough, sputum production Cardiovascular - No new CP, palpitations, angina, edema, claudication Gastrointestinal - No new abdominal pain, nausea, GERD, constipation, diarrhea, blood in stool - no new difficulty urinating, incontinence or dysuria. Musculoskeletal - No new weakness, pain at rest or with movement Skin - no new rashes All other systems negative Patient Active Problem List Diagnosis ??? Ileitis ??? Back pain ??? Depression ??? Bilateral shoulder pain ??? Cervical radiculopathy ??? Insomnia ??? Neck pain ??? Anxiety ??? Lightheadedness ??? Varicose veins of legs ??? OA (osteoarthritis) of knee right ??? Cataract extraction status of left eye ??? Status post total knee replacement TKR Right knee in 2007 Current Outpatient Prescriptions on File Prior to Visit Medication Sig Dispense Refill ??? ibuprofen (ADVIL) 200 mg tablet Take 200 mg by mouth every 6 hours as needed. ??? cyclobenzaprine (FLEXERIL) 10 mg tablet Take 1 tablet by mouth 3 times daily as needed for Muscle spasms. 30 tablet 0 ??? ALPRAZolam (XANAX) 0.25 mg tablet Take 0.25 mg by mouth 3 times daily as needed. ??? aspirin 81 mg EC tablet Take 81 mg by mouth daily. ??? multivitamin (THERAGRAN) tablet Take 1 tablet by mouth daily. ??? Saw Wan[place]a 500 mg capsule Take 500 mg by mouth daily. ??? Mavis Extract 500 mg Cap Take 1 capsule by mouth daily. ??? naproxen sodium (ALEVE) 220 mg tablet Take 220 mg by mouth as needed. Allergies Allergen Reactions ??? Penicillins Tongue swelling History Social History ??? Marital Status: Spouse Name: N/A Number of Children: N/A ??? Years of Education: N/A Occupational History ??? retired Social History Main Topics ??? Smoking status: Never Smoker ??? Smokeless tobacco: Current User Types: Chew Comment: 3 cans/ week. ??? Alcohol Use: 0.6 oz/week 1 Cans of beer per week ??? Drug Use: No ??? Sexually Active: Yes -- Female partner(s) Other Topics Concern ??? Not on file Social History Narrative ??? No narrative on file Physical Exam: BP 104/63 Pulse 93 Temp 37.1 ??C (98.7 ??F) (Oral) Wt 98.884 kg (218 lb) SpO2 97% General - No acute distress. ENT - Mouth without lesions. TM- normal bl no erythema noted Eyes- EOMI. Not jaundiced. Noninjected Neck - No lymphadenopathy. No thyromegaly Lungs - Clear to auscultation. Heart - RRR, S1,S2, no audible murmur, gallop or rub. Assessment and Plan: Ken was seen today for dizziness and ear fullness. After a long discussion , he did agree that some of his symptoms could be related to anxiety and depression.we discussed the role of mind body medicine, the help with CBT and referral to Nancy [facility] who will call pt and see if he would come in for counseling or help. His labs from [place] were normal, lyme titer is pending. For his ? Of allergies, he will do a trial of claritin 10 mg per day and assess if he improves overtime. Follow up with his PCP. Diagnoses and associated orders for this visit: Urine frequency - POCT urine dipstick; today was normal Anxiety - buPROPion (WELLBUTRIN SR) 100 mg 12 hr tablet; Take 1 tablet by mouth 2 times daily. Take once daily for 3 days then increase to twice daily Depression - buPROPion (WELLBUTRIN SR) 100 mg 12 hr tablet; Take 1 tablet by mouth 2 times daily. Take once daily for 3 days then increase to twice daily For followup will need his lyme titer documented in this encounter Plan of Treatment Upcoming Encounters Date Type Department Care Team (Late st Contact Info) Description 12/15/2024 11:30 AM EDT Office Visit [place] [address] Charline Ziegler MD [facility] [place] [address] documented as of this encounter Procedures Procedure Name Priority Date/Time Associated Diagnosis Comments POCT URINE DIPSTICK Routine 01/03/2014 1 :40 PM EDT Urine frequency documented in this encounter Results * (ABNORMAL) POCT urine dipstick (01/03/2014 1:40 PM EDT) POC Sp [place] neg 1.002 - 1.030 POC pH, UA neg 5.0 - 8.5 POC Leuk, UA norm Negative - Negative POC Nitrite, UA neg Negative - Negative POC Protein, UA norm Negative - Negative mg/dL POC Glucose, UA neg Normal - Normal mg/dL POC Ketone, UA neg Negative - Negative POC Urobil, UA norm 0.2 - 1.0 mg/dL POC Bili, UA neg Negative - Negative POC Blood, UA neg Negative - Negative denise/uL 01/03/2014 1:40 PM EDT Amrita Lozano MD POINT OF CARE SACHA T ORDERABLES documented in this encounter Visit Diagnoses Diagnosis Urine frequency- Primary Urinary frequency Anxiety Anxiety state, unspecified Depression Depressive disorder, not elsewhere classified documented in this encounter Care Teams Software Performance Engineer Relationship Specialty Start Date End Date Reji Adams MD [facility] [address] [facility] [address] PCP - General 02/12/12 06/27/15 documented as of this encounter
--- OUTSIDE RECORDS SUMMARY | 2024-07-09 11:19 | XMS_ITS | Encounter Summary ---
Author [facility] [address] Care Team Providers Care Qualitative Field Coordinator Name Role Phone Reji Newberry MD Primary Care Provider [phone] Encounter Details Date Type Department Care Team (Late st Contact Info) Description 01/12/2014 9:00 AM EDT Office Visit Audiology at [address] [address] Celia Griffin AUD [facility] [place] [address] Unspecified hearing loss (Primary Dx); Sensorineural hearing loss, unilateral; Dizziness; Tinnitus, subjective, unspecified laterality; Ear discomfort, left Discharge Disposition: Home Social History Tobacco [...] Progress Notes * Celia Griffin AUD - 01/12/2014 9:39 AM EDT AUDIOLOGY SECTION AUDIOLOGIC EVALUATION Name: Kenlenin Mckeon Age: 68 y.o. Date: 01/12/2014 Reason for referral: Evaluation of hearing loss History: Ken Mckeon was seen today for an audiologic evaluation due to concerns regarding his hearing. Mr. Mckeon was last seen in 2000 by MATT Acuña for possible Meniere's Disease affecting the left ear. An audiologic evaluation at the time revealed a moderate hearing loss in the right ear at 8,000 Hz and mild to moderate sensorineural hearing loss in the left with normal hearing at 250 Hz, 1,000-2,000 Hz and 8,000 Hz. Please see previous medical record for a detailed history. Today, Mr. Mckeon reported decreased hearing in the left ear for the past year. He has difficulty hearing general conversations and the television. He recently has experienced discomfort in and around the left ea r. He noted dizziness while walking at times and when washing his hair in the shower with his eyes closed. The dizziness typically resolves within a few seconds. Mr. Mckeon wears earplugs at night while sleeping and stated he can hear his heartbeat. 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 Hearing is within normal limits 250-4,000 Hz sloping to mild/moderate hearing loss in the right ear. ?? Borderline normal at 250 Hz falling to moderate at 500 Hz rising to normal from 1,000-2,000 Hz sloping to moderate/moderately-severe sensorineural hearing loss in the left ear. ?? Word recognition scores were determined to be excellent bilaterally at an elevated presentation level (70 dB HL right and 80 dB HL left). ?? Normal middle ear system function bilaterally. ?? Today's results indicated substantial auditory based communication deficits. ?? Ken Mckeon is a good candidate for amplification and general aural rehabilitation. ?? Amplification was discussed with Mr. Mckeon. He is not interested in pursuing amplification at this time. ?? A referral to MATT Acuña in Otolaryngology is recommended due to an asymmetric sensorineural hearing loss, dizziness and ear discomfort. RECOMMENDATIONS: 1. Referral to ENT due to asymmetric sensorineural hearing loss, dizziness and ear discomfort. 2. Annual re-evaluation; sooner if concerns arise. 3. Use of communication strategies in noisy environments (i.e speaking face to face and reducing background noise). 4. Use of hearing protection when exposed to hazardous noise. Please do not hesitate to contact this Section at [phone] if there are questions regarding this report or its recommendations[place] [address] Attachment: audiogram CC: REJI NEWBERRY MD documented in this encounter Plan of Treatment Upcoming Encounters Date Type Department Care Team (Late st Contact Info) Description 12/15/2024 11:30 AM EDT Office [place] [address] Charline Ziegler MD [facility] [place] [address] documented as of this encounter Visit Diagnoses Diagnosis Unspecified hearing loss- Primary Sensorineural hearing loss, unilateral Dizziness Dizziness and giddiness Tinnitus, subjective, unspecified laterality Ear discomfort, left documented in this encounter Care Teams Qualitative Field Coordinator Relationship Specialty Start Date End Date Reji Newberry MD [facility] GENER[facility] [place] [address] PCP - General 02/12/12 06/27/15 documented as of this encounter
--- OUTSIDE RECORDS SUMMARY | 2024-07-09 11:19 | XMS_ITS | Encounter Summary ---
Author Organization [facility] Address [facility] [place] [address] Care Team Providers Care Safety Sealer Name Role Phone Reji Adams MD Primary Care Provider [phone] Reason for Visit * Reason Onset Date Comments Follow-up 11/26/2013 Encounter Details Date Type Department Care Team (Late st Contact Info) Description 11/26/2013 Telephone [place] [address] Roderick Perkins MD [facility] [place] [address] Follow-up Social History Tobacco Use Types Packs/Day Years [...] Miscellaneous Notes * Telephone Encounter - Tressa Moreno - 11/26/2013 2:46 PM EDT Patient scheduled. * Telephone Encounter - Cherise Oswald - 11/26/2013 1:08 PM EDT Message on cell phone to call to schedule an injection of shoulder in the clinic. Abbie saw this patient in Dr. Perkins's clinic, so you can book in her schedule: [id number]/ACARTHROP-INJECTION documented in this encounter Plan of Treatment Upcoming Encounters Date Type Department Care Team (Late st Contact Info) Description 12/15/2024 11:30 AM EDT Office Visit [place] [address] Charline Ziegler MD [facility] [place] [address] documented as of this encounter Visit Diagnoses Not on filedocumented in this encounter Care Teams Safety Sealer Relationship Specialty Start Date End Date Reji Adams MD [facility] [place] [address] PCP - General 02/12/12 06/27/15 documented as of this encounter
--- OUTSIDE RECORDS SUMMARY | 2024-07-09 11:19 | XMS_ITS | Encounter Summary ---
Author Organization [facility] Address [facility] [place] [address] Care Team Providers Care Architectural Drafter Name Role Phone Reji Adams MD Primary Care Provider [phone] Reason for Visit * Reason Onset Date Comments Questions 01/27/2014 Encounter Details Date Type Department Care Team (Late st Contact Info) Description 01/27/2014 Telephone [place] [address] Abbie Butcher PA [facility] [place] [address] Questions Social History Tobacco Use Types Packs/Day [...] Miscellaneous Notes * Telephone Encounter - Beckie Miller RN - 01/27/2014 3:42 PM EDT Spoke with patient who indicates he has some hiccoughs after his cortisone injection. Reviewed withMATT Butcher. Not felt to be related to injection. Patient feels fine otherwise. He will update us asneed be. * Telephone Encounter - Savanah Mcgee - 01/27/2014 3:35 PM EDT Patient is calling and has some questions below is his EDH note Justin Leiva, So...I have the weird question of the day. In the past I do not recall having any side effects from cortisone injections. It was interesting that you explained the fat based vs. water based versions of cortisone so I am not sure I've ever hadthe material you put in on Friday. Since the injection I have had two issues: 1. Persistent hiccups...off and on throughout the day Friday and already starting today. (no ingestion of spicy, unusual or fatty foods), 2. Sleeplessness...even after taking a 50 mg. dose of Diphenhydramine at bedtime. I'd appreciate your thoughts on this. Thank you, Gregg Mckeon PS: The palm portion of my pain has been greatly reduced. Knuckles on top of middle finger remain quite uncomfortable. Best number [phone] documented in this encounter Plan of Treatment Upcoming Encounters Date Type Department Care Team (Late st Contact Info) Description 12/15/2024 11:30 AM EDT Office [place] [address] Charline Ziegler MD [facility] [place] [address] documented as of this encounter Visit Diagnoses Not on filedocumented in this encounter Care Teams Architectural Drafter Relationship Specialty Start Date End Date Reji Adams MD [facility] [place] [address] PCP - General 02/12/12 06/27/15 documented as of this encounter
--- OUTSIDE RECORDS SUMMARY | 2024-07-09 11:19 | XMS_ITS | Encounter Summary ---
Author Organization [facility] Address [facility] [place] [address] Care Team Providers Care Food Prep Worker Name Role Phone Reji Adams MD Primary Care Provider [phone] Reason for Visit * Reason Comments Illness ear discomfort, fati candy Encounter Details Date Type Department Care Team (Late st Contact Info) Description 11/30/2013 9:05 AM EDT Office Visit Family Medicine at [facility] [address] [place] [address] Deisi Alfaro, REAL ESTATE AGENCY PRINCIPAL [facility] [place] [address] Otalgia of left ear (Primary Dx); Urinary frequency; Blood in urine Discharge Disposition: Home Social History Tobacco Use [...] Sign Reading Time Taken Comments Blood Pressure 122/75 11/30/2013 9:41 AM EDT Pulse 72 11/30/2013 9:41 AM EDT Temperature 36.9 ??C (98.5 ??F) 11/30/2013 9:41 AM ED T Respiratory Rate 18 11/30/2013 9:41 AM EDT Oxygen Saturation 98% 11/30/2013 9:41 AM EDT Inhaled Oxygen Concentration - - Weight 99.3 kg (219 lb) 11/30/2013 9:41 AM EDT Height 179.1 cm (5' 10.5) 11/30/2013 9:41 AM ED T Body Mass Index 30.98 11/30/2013 9:41 AM EDT documented in this encounter Progress Notes * Deisi Alfaro, REAL ESTATE AGENCY PRINCIPAL - 11/30/2013 9:45 AM EDT Chief Complaint Patient presents with ??? Illness ear discomfort, fatigue HPI: 68 y.o. male presents with not feeling so great last few days, not as bad today, ear discomfort improved. Has intermittent left ear pain, some clear nasal drainage, no cough or sore throat, no fever/chills, + headaches - possibly r/t neck arthritis, ongoing eval for that. Partner was dx UTI by phone - wonders whether contagious, + frequency, + urgency 3-4 days, continued unchanged issues with start/stop/maintain stream, no abd or back pain. Denies any current s/s during annual exam last week. One partner 5-6 years, no other partners. Seen by Ortho this am for shoulder steroid injection which went very well, much better than previous injection many years ago. ROS: see HPI above Patient Active Problem List Diagnosis Code ??? [...] ??? Back pain 724.5 ??? Ileitis 558.9 Current Outpatient Prescriptions Medication Sig Dispense Refill [...] 1 tablet by mouth daily. ??? Saw Electra 500 mg capsule Take 500 mg by mouth daily. ??? Mavis Extract 500 mg Cap Take 1 capsule by mouth daily. ??? naproxen sodium (ALEVE) 220 mg tablet Take 220 mg by mouth as needed. Current Facility-Administered Medications Medication Dose Route Frequency Provider Last Rate Last Dose ??? [COMPLETED] lidocaine (XYLOCAINE) 20 mg/mL (2 %) injection 80 mg 80 mg Subcutaneous Once Abbie Butcher PA 80 mg at 11/30/13 0858 ??? [COMPLETED] triamcinolone acetonide (KENALOG-40) injection 40 mg 40 mg Intra-articular Once Abbie Butcher PA 40 mg at 11/30/13 0858 Physical Exam: Filed Vitals: 11/30/13 0941 BP: 122/75 Pulse: 72 Temp: 36.9 ??C (98.5 ??F) TempSrc: Oral Resp: 18 Height: 179.1 cm (5' 10.5) Weight: 99.338 kg (219 lb) SpO2: 98% Physical Exam Constitutional: He appears well-developed and well-nourished. No distress. HENT: Right Ear: Tympanic membrane, external ear and ear canal normal. Left Ear: Tympanic membrane, external ear and ear canal normal. Min air fluid bilat TMs. No sinus tenderness. Neck: Normal range of motion. Neck supple. Pulmonary/Chest: Effort normal and breath sounds normal. He has no wheezes. He has no rales. Abdominal: Soft. Bowel sounds are normal. There is no tenderness. No cva tenderness Lymphadenopathy: He has no cervical adenopathy. Assessment/Plan: Otalgia, consider mild allergies: reviewed findings, patient agrees. Reviewed specific otc med options to address s/s. Urinary frequency, trace hematuria: reviewed presenting s/s, consider UTI protatitis Patient recalls previous prostatitis, denies similar presentation. Send urine for microscopic, discussed. Reviewed s/s to contact office, follow up - patient comfortable with plan. documented in this encounter Plan of Treatment Upcoming Encounters Date Type Department Care Team (Late st Contact Info) Description 12/15/2024 11:30 AM EDT Office Visit Gastroenterology at [facility] [place] [address] Charline Ziegler MD [facility] [place] [address] documented as of this encounter Procedures Procedure Name Priority Date/Time Associated Diagnosis Comments POCT URINE DIPSTICK Routine 11/30/2013 9 :55 AM EDT Urinary frequency URINALYSIS WITH REFLEX CULTURE Routine 11/30/2013 9:50 AM EDT Urinary frequency Blood in urine documented in this encounter Results * POCT urine dipstick (11/30/2013 9:55 AM EDT) POC Sp Rising Star 1.015 1.002 - 1.030 POC pH, UA 5 5.0 - 8.5 POC Leuk, UA n Negative - Negative POC Nitrite, UA n Negative - Negative POC Protein, UA tr Negative - Negative mg/dL POC Glucose, UA n Normal - Normal mg/dL POC Ketone, UA n Negative - Negative POC Urobil, UA n 0.2 - 1.0 mg/dL POC Bili, UA n Negative - Negative POC Blood, UA tr Negative - Negative denise/uL 11/30/2013 9:55 AM EDT Reji Adams MD POINT OF CARE TEST O RDERABLES * (ABNORMAL) Urinalysis with microscopic (11/30/2013 9:50 AM EDT) Glucose, Urine Dipstick Negative Negative mg/dL [facility] Protein, Urine Dipstick Negative mg/dL [facility] Bilirubin, Urine Dipstick Negative Negative mg/dL [facility] Comment: Clinical correlation required for positive Urine Bilirubin results as false positive may occur with some drugs and drug related products. If a false positive is suspected a serum total bilirubin should be considered if clinically indicated. Urobilinogen, Urine Dipstick Normal mg/dL [facility]NI[facility] pH, Urn (dipstick) 5.5 5.0 - 8.0 [facility] Blood, Urine Dipstick Negative mg/dL [facility] Ketone, Urine Dipstick Negative mg/dL [facility] Nitrite, Urine Dipstick Negative [facility] MILLENNIUM Leukocytes, Urine Dipstick Negative mcL [facility] MILLENNI[facility] Appearance, Urine Dipstick Clear Clear [facility] MILLENNIUM Specific Rising Star Urine Automated 1.013 1.002 - 1.030 [facility] MILLENNIUM Color, Urine Dipstick Yellow Yellow [facility] MILLENNIUM RBC, Urine <1 0 - 3 /HPF [facility] WBC, Urine <1 0 - 3 /HPF [facility] Bacteria, Urine Rare(A) None /HPF [facility] Urine specimen (specimen) 11/30/2013 9:50 AM EDT 11/30/2013 3:53 PM EDT Narrative Resulting Agency Comment Spec In Lab Reji Adams MD URINE ORDERABLES [facility] documented in this encounter Visit Diagnoses Diagnosis Otalgia of left ear- Primary Otalgia, unspecified Urinary frequency Blood in urine Hematuria, unspecified documented in this encounter Care Teams Food Prep Worker Relationship Specialty Start Date End Date Reji Adams MD [facility] [address] [place] [address] PCP - General 02/12/12 06/27/15 documented as of this encounter
--- OUTSIDE RECORDS SUMMARY | 2024-07-09 11:19 | XMS_ITS | Encounter Summary ---
Author Organization [facility] [place] [address] Care Team Providers Care Planning Intern Name Role Phone Reji Adams MD Primary Care Provider [phone] Reason for Visit * Reason Comments Annual Exam Encounter Details Date Type Department Care Team (Late st Contact Info) Description 11/19/2013 9:25 AM EDT Office Visit Internal Medicine at [address] [address] Reji Adams MD [facility] [place] [address] Decreased urine stream; Screening for hypercholesterolemia; Screening for diabetes mellitus; Screening for cardiovascular condition; Neck pain; Pain in finger, left; Anxiety; Healthcare maintenance Discharge Disposition: Home Social History Tobacco Use [...] Sign Reading Time Taken Comments Blood Pressure 117/71 11/19/2013 9:17 AM EDT Pulse 77 11/19/2013 9:17 AM EDT Temperature 36.6 ??C (97.9 ??F) 11/19/2013 9:17 AM ED T Respiratory Rate - - Oxygen Saturation 100% 11/19/2013 9:17 AM EDT Inhaled Oxygen Concentration - - Weight 98.5 kg (217 lb 3.2 oz) 11/19/2013 9:17 A M EDT Height 179.1 cm (5' 10.5) 11/19/2013 9:17 AM ED T Body Mass Index 30.72 11/19/2013 9:17 AM EDT documented in this encounter Progress Notes * Reji Adams MD - 11/19/2013 9:40 AM EDT ANNUAL PHYSICAL I. HISTORY a. Reason(s) for Visit: Ken Mckeon is 68 y.o. male is here for chronic and acute medical problems and preventive medical care. b. History of Present Illness:Presents with the following concerns Neck pain: MRI showed DJD. Referred to PT. Is doing a HEP. States has some good days and bad days but tolerable. L middle finger pain: seen by Dr Avery on 10/28. Not improving despite conservative measures. Has appointment with ortho hand on 11/22. Anxiety: on alprazolam prn. Has never wanted to trial SSRI. Doing okay with anxiety. c. Review of Systems: Constitutional - no fevers, chills, weight loss or gain, fatigue Allergic/Immunologic - no rash, wheeze Cardiovascular - No CP, palpitations, Angina, MARTIN, SOB Integument/Breast - No lesions, lumps or nodules noted Respiratory - No SOB, MARTIN, wheeze, cough, sputum production HEENT - No diffculty swallowing, hearing, No nasal congestion or postnasal drip Endocrine - No Polydipsia, Polyuria, Palpitations Eyes - No visual changes, blurriness or visual loss Psychiatric - No sadness, depression, anxiety, anhedonia, suicidal ideation Neurological - No numbness, tingling, loss of sensation, weakness or function of limbs, No headaches Gastrointestinal - No abdominal pain, nausea, GERD, constipation, diarrhea, blood in stool Genitourinary - no abnormal discharge, lumps, masses or nodules present Heme/Lymph - No bleeding, lymph node swelling, night sweats Musculoskeletal - see HPI All other systems negative d. PHx Patient Active Problem List Diagnosis ??? Ileitis ??? Back pain ??? Depression ??? Bilateral shoulder pain ??? Cervical radiculopathy ??? Insomnia ??? Neck pain ??? Anxiety ??? Lightheadedness ??? Varicose veins of legs ??? OA (osteoarthritis) of knee right ??? Cataract extraction status of left eye ??? Status post total knee replacement TKR Right knee in 2007 SH: History Social History ??? Marital Status: Spouse [...] -- Female partner(s) Other Topics Concern ??? None Social History Narrative ??? None FH: Family History Problem Relation Age of Onset ??? Cancer Mother bone ??? Diabetes Father ??? Cancer Father testicular PREVENTION: DT: 04/09 Pneumovax: 09/09 Zostavax: 04/09 Flu: 05/09 Seat Belts: consistent Cholesterol (total/HDL/LDL): 02/06: 179/55/108 Colon cancer screening: nl 09/10 HIV: neg ASA age 45-79 Men and 55-79 women: on 81 mg daily AAA screening: non-smoker PSA: 10/06: 1.96 Hep C (born [birth year]): neg 09/09 II. PHYSICAL EXAM: BP 117/71 Pulse 77 Temp 36.6 ??C (97.9 ??F) Ht 179.1 cm (5' 10.5) Wt 98.521 kg (217 lb 3.2oz) BMI 30.71 kg/m2 SpO2 100% General - No apparent distress. ENT - Mouth without lesions. Oropharynx: moist without lesions Eyes- EOMI. Not [...] Chest/Back - no spinal tenderness, no CVAT [] Neurological - Orientation - person, place and time. Cranial nerves intact. Strength - 5/5 upper and lower extremities. Sensation - light touch intact. III. MEDICAL DECISION MAKING: Assessment/Plan: Ken Mckeon is 68 y.o. male , here for acute and chronic medical conditions and preventative care. Ken was seen today for annual exam. Diagnoses and associated orders for this visit: Decreased urine stream - PSA; Future Screening for diabetes mellitus - Glucose, fasting; Future Screening for cardiovascular condition - Lipid panel (fasting); Future Neck pain - Cont conservative management - Surgical intervention unlikely to be successful given multilevel disease Pain in finger, left - F/u with hand - ? Overuse injury Anxiety - Cont prn xanax but if using frequently then would not recommend continuing this med [facility] Healthcare maintenance - Discussed psa and would like to have done - Earth utd - Immunizations utd - Discussed chewing tobacco and pt is precontemplative at this time. Discussed nicotine lozenges should he wish F/u 1 year or prn documented in this encounter Plan of Treatment Upcoming Encounters Date Type Department Care Team (Late st Contact Info) Description 12/15/2024 11:30 AM EDT Office [place] [address] Charline Ziegler MD [facility] [place] [address] documented as of this encounter Procedures Procedure Name Priority Date/Time Associated Diagnosis Comments PSA (ULTRASENSITIVE) Routine 11/19/2013 10:26 AM EDT Decreased urine stream GLUCOSE, FASTING Routine 11/19/2013 10:2 6 AM EDT Screening for diabetes mellitus LIPID PANEL (REFLEX DIRECT LDL) Routine 11/19/2013 10:26 AM EDT Screening for cardiovascular condition documented in this encounter Results * Glucose, fasting (11/19/2013 10:26 AM EDT) Glucose Fasting 90 65 - 99 mg/dL [facility] Comment: ?Fasting* Glucose Interpretive Criteria Normal ?65-99 [...] of Diabetes Mellitus, Position Statement from the [place] Diabetes Association. ??Diabetes Care, Volume 33, Supplement 1, Jul 2009 Blood specimen (specimen) 11/19/2013 10:26 AM EDT 11/19/2013 12:19 PM EDT Narrative Resulting Agency Comment Spec In Lab Reji Adams MD CHEMISTRY ORDERABLES [facility] * (ABNORMAL) Lipid panel (fasting) (11/19/2013 10:26 AM EDT) Cholesterol, Total 214(H) <=199 mg/dL [facility] Comment: Recommendations of the NCEP Adult Treatment Panel for the following risk cutoff thresholds for the [place] population: Desirable: <200 mg/dL Borderline High: 200-239 mg/dL High: > or = 240 mg/dL Triglyceride 73 <=149 mg/dL [facility] Comment: Reference Range: Normal triglycerides: ??<150 mg/dL Borderline high: ??150-199 mg/dL High: ??200-499 mg/dL Very high: ??>ya=033 mg/dL MARKEL 2001; 285(19):4117-3896 HDL Cholesterol 68 >=40 mg/dL [facility] Comment: Reference range: ??Low HDL: ?? < 40 mg/dL ??Normal: ?40-60 mg/dL ??Desirable: > 60 mg/dL MARKEL 2001; 285(19):2071-1356 LDL Cholesterol 131(H) <=99 mg/dL [facility] Comment: Reference range: ?? Optimal: ?<100 mg/dL ?? Near Optimal/Above Optimal: ?? 100-129 mg/dL ?? Borderline high: ?130-159 mg/dL ?? High: ? 160-189 mg/dL ?? Very high: ?>ao=248 mg/dL MARKEL 2001: 285(19):9201-5394 Cholesterol/HDL Ratio 3.1 ratio [facility] Comment: A Cholesterol to HDL ratio below 4:1 is desirable. ??Studies suggest that increased CAD risk occurs at ratios above 5 for females and above 6 for men. ? [place] Heart Association ??(http://www.americanheart.org) ? [place] Int Med, 1994; 121:641 ? AM J Med, 1998; 105(1A):48S Blood specimen (specimen) 11/19/2013 10:26 AM EDT 11/19/2013 12:19 PM EDT Narrative Resulting Agency Comment Spec In Lab Reji Adams MD CHEMISTRY ORDERABLES [facility] * PSA (11/19/2013 10:26 AM EDT) Prostate Specific Antigen (Ultrasensitiv e) 2.71 0.00 - 4.00 ng/mL [facility] Blood specimen (specimen) 11/19/2013 10:26 AM EDT 11/19/2013 12:19 PM EDT Narrative Resulting Agency Comment Spec In Lab Reji Adams MD CHEMISTRY ORDERABLES [facility] documented in this encounter Visit Diagnoses Diagnosis Decreased urine stream Slowing of urinary stream Screening for hypercholesterolemia Screening for lipoid disorders Screening for diabetes mellitus Screening for cardiovascular condition Screening for other and unspecified cardiovascular conditions Neck pain Cervicalgia Pain in finger, left Anxiety Anxiety state, unspecified Healthcare maintenance Routine general medical examination at a health care facility documented in this encounter Care Teams Planning Intern Relationship Specialty Start Date End Date Reji Adams MD [facility] GENER[facility] [place] [address] PCP - General 02/12/12 06/27/15 documented as of this encounter
--- OUTSIDE RECORDS SUMMARY | 2024-07-09 11:19 | XMS_ITS | Encounter Summary ---
Author Organization [facility] [place] [address] Care Team Providers Care Machine Stacker Name Role Phone Reji Adams MD Primary Care Provider [phone] Encounter Details Date Type Department Care Team (Late st Contact Info) Description 12/30/2013 Abstract Radiology and Cardiology Results [address] [place] [address] [facility] Conversion, Results Provider, Social History Tobacco Use [...] 11:30 AM EDT Office [place] [address] Charline Ziegler MD [facility] [place]STR[place] [address] documented as of this encounter Procedures Procedure Name Priority Date/Time Associated Diagnosis Comments CBC (WITH DIFF) Routine 12/30/2013 1:14 PM EDT TSH Routine 12/30/2013 1:14 PM EDT documented in this encounter Results * (ABNORMAL) CBC (with Diff) (12/30/2013 1:14 PM EDT) Platelet 191(Exter nal Lab) 140 - 440 thou/mm3 [facility] Mean Cell Volume 87(Finance Attorney al Lab) 81 - 97 fl [facility] Neutrophil % 61.2(Exte rnal Lab) 32.0 - 70.0 % [facility] Hematocrit 44(Finance Attorney al Lab) 40 - 54 % [facility] Mean Cell Hemoglobin Concentration 34(Finance Attorney al Lab) 32 - 36 % [facility] Lymph % 32.1(Exte rnal Lab) 22.0 - 40.0 % [facility] Mean Cell Hemoglobin 30(Finance Attorney al Lab) 27 - 32 pg [facility] Hemoglobin 15.2(Exte rnal Lab) 14.0 - 18.0 gm/dL [facility] RDW coefficient of variation 14.5(Exte rnal Lab) 11.5 - 15.5 % [facility] White Blood Cell 6.9(Exter nal Lab) 4.5 - 10.0 thou/mm3 [facility] Monocyte % 5.4(Exter nal Lab) 4.0 - 12.0 % [facility] Red Blood Cell 5.1(Exter nal Lab) 4.6 - 6.3 mil/mm3 [facility] Neutrophil Absolute 4.2(Exter nal Lab) 1.6 - 6.5 thou/mm3 [facility] Lymphocytes Abs 2.2(Exter nal Lab) 1.2 - 3.4 thou/mm3 [facility] Eos % 1(Externa l Lab) 1.0 - 3.0 % [facility] Monocyte Abs 0.4(Exter nal Lab) 0.1 - 0.6 thou/mm3 [facility] Basophil % 0.3(Exter nal Lab) 0.0 - 1.0 % [facility] Eosinophils Abs 0.1(Exter nal Lab) 0.0 - 0.2 thou/mm3 [facility] Baso Absolute 0(Externa l Lab) 0.0 - 0.1 thou/mm3 [facility] 12/30/2013 1:14 PM EDT Results Provider [facility] Con[facility] MD JUAN J ARMSTRONGOGFarida ORDERABLES [facility] * (ABNORMAL) TSH (12/30/2013 1:14 PM EDT) Thyroid Stimulating Hormone 1.348(Ext ernal Lab) 0.460 - 4.680 uIU/mL [facility] 12/30/2013 1:14 PM EDT Results Provider [facility] Conversion MD KAITLYNN RAMSAY ORDERABLES Performing Organization Address [facility] Co de Phone Number [facility] documented in this encounter Visit Diagnoses Not on filedocumented in this encounter Additional Health Concerns Infection Onset Date Last Indicated Resolved Time Rule Out C. difficile 03/08/2020 03/08/20202019 11:23 AM EDT documented as of this encounter Care Teams Machine Stacker Relationship Specialty Start Date End Date Reji Adams MD [facility] GENER[facility] INTERNAL [place] [address] PCP - General General Internal Medicine 07/13/15 documented as of this encounter
--- OUTSIDE RECORDS SUMMARY | 2024-07-09 11:19 | XMS_ITS | Encounter Summary ---
Author Organization [facility] [place] [address] Care Team Providers Care Automotive Painter Helper Name Role Phone Reji Adams MD Primary Care Provider [phone] Reason for Visit * Reason Comments Neck Pain Encounter Details Date Type Department Care Team (Late st Contact Info) Description 10/08/2013 9:57 AM EDT - 10/08/2013 10:50 AM EDT Emergency [place] [address] Law Hassan PA [address] [place] [address] EMERGENCY DEPT, [facility] [place] [address] Cervical strain, acute, initial encounter Discharge Disposition: Home Social History Tobacco [...] Sign Reading Time Taken Comments Blood Pressure 119/78 10/08/2013 10:06 AM EDT Pulse 75 10/08/2013 10:06 AM EDT Temperature 36.7 ??C (98.1 ??F) 10/08/2013 10:06 AM E DT Respiratory Rate 15 10/08/2013 10:06 AM EDT Oxygen Saturation 100% 10/08/2013 10:06 AM EDT Inhaled Oxygen Concentration - - Weight - - Height - - Body Mass Index - - documented in this encounter Discharge Instructions * Discharge Instructions* Law Hassan PA - 10/08/2013 10:48 AM EDT Images from the original note were not included. Use your Flexeril every 8 hours. Plan on using this. Over the next [address] days[address] plan to drive or operate machinery. Due to the potential for sleepiness. Naprosyn 440 mg twice daily. You can alternate this with Tylenol if helpful. Use heat first thing in the morning and through the day, ice at night. Please do gentle stretches several times a day. Make sure you sleep with your neck in a neutral position. Reevaluate with any increased pain, numbness, tingling, or weakness in your extremities, chest painor shortness of breath, or any other worsening symptoms. [facility] Neck Strain: After Your Visit Your Care Instructions You have strained the muscles and ligaments in your neck. A sudden, awkward movement can strain theneck. This often occurs with falls or car accidents or during certain sports. Everyday activities like working on a computer or sleeping can also cause neck strain if they force you to hold your neckin an awkward position for a long time. It is common for neck pain to get worse for a day or two after an injury, but it should start to feel better after that. You may have more pain and stiffness for several days before it gets better. This is expected. It may take a few weeks or longer for it to heal completely. Good home treatment can help you get better faster and avoid future neck problems. Follow-up care is a enrique part of your treatment and safety. Be sure to make and go to all appointments, and call your doctor if you are having problems. It???s also a good idea to know your test results and keep a list of the medicines you take. How can you care for yourself at home? ?? If you were given a neck brace (cervical collar) to limit neck motion, wear it as instructed foras many days as your doctor tells you to. Do not wear it longer than you were told to. Wearing a brace for too long can make neck stiffness worse and weaken the neck muscles. ?? Put ice or a cold pack on your neck for 10 to 20 minutes at a time. Try to do this every 1 to 2 hours for the next 3 days (when you are awake) or until the swelling goes down. Put a thin cloth between the ice and your skin. ?? Take pain medicines exactly as directed. ?? If the doctor gave you a prescription medicine for pain, take it as prescribed. ?? If you are not taking a prescription pain medicine, ask your doctor if you can take an [id number] medicine. ?? Gently rub the area to relieve pain and help with blood flow. Do not massage the area if it hurts to do so. ?? If your neck is swollen, avoid things that might make swelling worse, such as hot showers, hot tubs, hot packs, and drinks that contain alcohol. ?? After 2 or 3 days, if your swelling is gone, apply a heating pad set on low or a warm cloth to your neck. This helps keep your neck flexible. Some doctors suggest that you go back and forth between hot and cold. Put a thin cloth between the heating pad and your skin. ?? Do not do anything that makes the pain worse. Take it easy for a couple of days. You can do yourusual activities if they do not hurt your neck or put it at risk for more stress or injury. ?? Try sleeping on a special neck pillow. Place it under your neck, not under your head. Placing a tightly rolled-up towel under your neck while you sleep will also work. If you use a neck pillow or rolled towel, do not use your regular pillow at the same time. ?? To prevent future neck pain, do exercises to stretch and strengthen your neck and back. Learn how to use good posture, safe lifting techniques, and proper body mechanics. When should you call for help? Call 911 anytime you think you may need emergency care. For example, call if: ?? You lose bladder or bowel control. ?? You have weakness in your arms or legs. Call your doctor now or seek immediate medical care if: ?? You have new pain, numbness, or tingling in your arms, hands, or legs. Watch closely for changes in your health, and be sure to contact your doctor if: ?? Your neck pain gets worse. ?? Your neck pain is not better after 1 week. It may take longer for the pain to go away completely, but it should feel at least a little better. Where can you learn more? Visit our health information library at [email or web address] You can also view health information on [employer], your personal patient account. Log in or sign up today. Enter M253 in the search box to learn more about Neck Strain: After Your Visit. ?? [id number] [employer]. Care instructions adapted under license by [facility]. This care instruction is for use with your licensed healthcare professional. If you have questions about a medical condition or this instruction, always ask your healthcare professional. [employer] disclaims any warranty or liability for your use of this information. Content Version: 9.9.001614; Last Revised: September 15, 2012 documented in this encounter Medications at Time of Discharge Medication Sig Dispensed Refills Start Date End Date multivitamin (THERAGRAN) tablet Take 1 tablet by mouth daily. ALPRAZolam (XANAX) 0.25 mg tablet Take 0.25 mg by mouth 3 times daily as needed. 03/19/2018 aspirin 81 mg EC tablet Take 81 mg by mouth daily. 08/02/2014 Saw Gunpowder 500 mg capsule Take 500 mg by mouth daily. 03/14/2020 Mavis Extract 500 mg Cap Take 1 capsule by mouth daily. 03/24/2017 naproxen sodium (ALEVE) 220 mg tablet Take 220 mg by mouth as needed. 01/04/2011 07/09/2017 documented as of this encounter ED Notes * Law Hassan PA - 10/08/2013 11:03 AM EDT Chief Complaint Patient presents with ??? Neck Pain Patient is a 68 y.o. male presenting with neck pain. The history is provided by the patient. Neck Pain This is a chronic problem. Episode onset: Has been worse since he slept on a new pillow, friday night, but particularly worse since shoveling yesterday morning. The problem occurs constantly. The problem has not changed since onset.Associated with: shoveling yesterday. There has been no fever. The pain is present in the left side and right side. The quality of the pain is described as stabbing and aching. Radiates to: no radiation. The pain is moderate. Exacerbated by: turning head and flexing the neck. The pain is the same all the time. Stiffness is present in the morning. Pertinent negatives include no photophobia, no visual change, no chest pain, no syncope, no numbness, no weight loss, no headaches, no bowel incontinence, no bladder incontinence, no leg pain, no tingling and no weakness. Treatments tried: Alleve once yesterdy as well as a Flexeril last night. The treatment provided mild relief. The patient tells me that he has a chronically bad neck. He has had an MRI in the past which is showed severe arthritis. He has no history of back surgeries. He admits that he has had increased discomfort since Friday when he tried a new pillow and woke up with significant discomfort. This continued through the early part of the week, but worsened yesterday when he was shoveling late in the morning. He denies any numbness, tingling, or weakness in his upper extremities. He denies headache. He has no back or chest pain. Denies any shortness of breath. Allergies Allergen Reactions ??? Penicillins Tongue swelling Review of Systems Constitutional: Negative for fever and weight loss. HENT: Positive for neck pain and neck stiffness. Negative for sore throat and trouble swallowing. Eyes: Negative for photophobia. Respiratory: Negative for cough and shortness of breath. Cardiovascular: Negative for chest pain, palpitations and syncope. Gastrointestinal: Negative for nausea, vomiting and bowel incontinence. Genitourinary: Negative for bladder incontinence, dysuria, urgency and frequency. Musculoskeletal: Negative for myalgias and back pain. Skin: Negative for rash and wound. Neurological: Negative for tingling, weakness, light-headedness, numbness and headaches. Physical Exam Nursing note and vitals reviewed. Constitutional: He is oriented to person, place, and time. He appears well- developed and well-nourished. HENT: Head: Normocephalic and atraumatic. Neck: Phonation normal. Neck supple. Muscular tenderness present. No spinous process tenderness present. Decreased range of motion (due to pain, especially on rotation to the right) present. Cardiovascular: Normal rate, regular rhythm and normal heart sounds. Pulmonary/Chest: Effort normal and breath sounds normal. Neurological: He is alert and oriented to person, place, and time. He has normal strength and normal reflexes. No cranial nerve deficit or sensory deficit. Coordination normal. GCS eye subscore is 4.GCS verbal subscore is 5. GCS motor subscore is 6. Skin: Skin is warm and dry. Psychiatric: He has a normal mood and affect. His behavior is normal. Procedures MDM ED Course: Patient was evaluated as above. He has significant discomfort on palpation in the upper trapezii as well as sternocleidomastoids. His history and exam are most consistent with muscular spasm and strain. It began with sleeping on his neck wrong and then worse after shoveling. He did not have a false of fractures. Unlikely. His neurologic status. The upper extremities is normal. The patient will be discharged home to use. His muscle relaxants regularly, over the next several days, as well as, regular anti-inflammatories, and Tylenol. Gentle stretches were reviewed and he will tried to do these several times a day. Ice and heat were also encouraged in reevaluation with any new or worsening symptoms. Otherwise reevaluate with his primary physician Friday if not improved. Law Hassan PA 10/08/13 1109 documented in this encounter Miscellaneous Notes * Discharge Summary - Provider, Sebastien - 10/11/2013 9:57 AM EDT * Miscellaneous - Provider, Scanning - 10/08/2013 3:13 PM EDT * ED Triage - Meseret Tay RN - 10/08/2013 10:09 AM EDT Patient presents with posterior neck pain. He has chronic neck pain. Yesterday, he did some shoveling and the pain began when he went to bed. This morning the pain is worse. He denies any direct trauma or injury to his neck. He took one pain pill last night with some relief. He denies any numbness or tingling in his upper extremities. documented in this encounter Plan of Treatment Upcoming Encounters Date Type Department Care Team (Late st Contact Info) Description 12/15/2024 11:30 AM EDT Office Visit [place] [address] Charline Ziegler MD [facility] [place] [place] [address] documented as of this encounter Visit Diagnoses Diagnosis Cervical strain, acute, initial encounter documented in this encounter Care Teams Automotive Painter Helper Relationship Specialty Start Date End Date Reji Adams MD [facility] [place] [address] PCP - General 02/12/12 06/27/15 documented as of this encounter
--- OUTSIDE RECORDS SUMMARY | 2024-07-09 11:19 | XMS_ITS | Encounter Summary ---
Author Organization [facility] [place] [address] Care Team Providers Care Cheese Supervisor Name Role Phone Reji Adams MD Primary Care Provider [phone] Encounter Details Date Type Department Care Team (Late st Contact Info) Description 08/19/2014 Telephone Internal Medicine at [address] [address] Alexis Kate Social History Tobacco Use Types Packs/Day Years [...] encounter Miscellaneous Notes * Telephone Encounter - Suad Santoyo - 08/24/2014 11:11 AM EST . documented in this encounter Plan of Treatment Upcoming Encounters Date Type Department Care Team (Late st Contact Info) Description 12/15/2024 11:30 AM EDT Office [place] [address] Charline Ziegler MD [facility] [place] [address] documented as of this encounter Visit Diagnoses Not on filedocumented in this encounter Care Teams Cheese Supervisor Relationship Specialty Start Date End Date Reji Adams MD [facility] GENER[facility] [place] [address] PCP - General 02/12/12 06/27/15 documented as of this encounter
--- OUTSIDE RECORDS SUMMARY | 2024-07-09 11:19 | XMS_ITS | Encounter Summary ---
Author Organization [facility] [place] [address] Care Team Providers Care Senior Windows Systems Engineer Name Role Phone Reji Adams MD Primary Care Provider [phone] Encounter Details Date Type Department Care Team (Late st Contact Info) Description 02/15/2014 Orders Only Internal Medicine at [address] [address] Shante Richardson MD [facility] [place] [address] Prostatitis (Primary Dx) Social History Tobacco Use Types [...] 11:30 AM EDT Office [place] [phone] Charline Ziegler MD [facility] [place] [address] documented as of this encounter Visit Diagnoses Diagnosis Prostatitis- Primary Prostatitis, unspecified documented in this encounter Care Teams Senior Windows Systems Engineer Relationship Specialty Start Date End Date Reji Adams MD [facility] [place] [address] PCP - General 02/12/12 06/27/15 documented as of this encounter
--- OUTSIDE RECORDS SUMMARY | 2024-07-09 11:19 | XMS_ITS | Encounter Summary ---
Author Organization [facility] Address [facility] [place] [address] Care Team Providers Care Trauma Coordinator Name Role Phone Reji Adams MD Primary Care Provider [phone] Reason for Visit * Reason Onset Date Comments Questions 02/10/2014 Encounter Details Date Type Department Care Team (Late st Contact Info) Description 02/10/2014 Telephone [place] [address] Bebeto Lomeli MD [facility] [place] [address] Questions Social History Tobacco Use Types Packs/Day [...] encounter Miscellaneous Notes * Telephone Encounter - Gretelsara Surya M - 02/10/2014 3:27 PM EDT Mr. Mckeon is calling with continued long finger pain now in his pointer and middle. He is asking for another appointment which is scheduled for 03/02/14. He said something was mentioned at the last appointment about a possible image. Please let us know if any images is needed prior, call patient and add to appointment if needed. He was not sure if it was to be an MRI or CT. documented in this encounter Plan of Treatment Upcoming Encounters Date Type Department Care Team (Late st Contact Info) Description 12/15/2024 11:30 AM EDT Office Visit [place] [address] Charline Ziegler MD [facility] [place] [address] documented as of this encounter Visit Diagnoses Not on filedocumented in this encounter Care Teams Trauma Coordinator Relationship Specialty Start Date End Date Reji Adams MD [facility] [place] [address] PCP - General 02/12/12 06/27/15 documented as of this encounter
--- OUTSIDE RECORDS SUMMARY | 2024-07-09 11:19 | XMS_ITS | Encounter Summary ---
Author Organization [facility] [address] Care Team Providers Care Geothermal Hvac Technician Name Role Phone Reji Adams MD Primary Care Provider [phone] Encounter Details Date Type Department Care Team (Late st Contact Info) Description 11/17/2013 Orders Only Internal Medicine at [address] [address] Reji Adams MD [facility] [place] [address] Social History Tobacco Use Types Packs/Day Years [...] 11:30 AM EDT Office [place] [address] Charline Ziegler MD [facility] [place] [place] [address] documented as of this encounter Visit Diagnoses Not on filedocumented in this encounter Care Teams Geothermal Hvac Technician Relationship Specialty Start Date End Date Reji Adams MD [facility] [place] [address] PCP - General 02/12/12 06/27/15 documented as of this encounter
--- OUTSIDE RECORDS SUMMARY | 2024-07-09 11:19 | XMS_ITS | Encounter Summary ---
Author Organization [place] [address] Care Team Providers Care Pipe Recovery Specialist Name Role Phone Reji Adams MD Primary Care Provider [phone] Reason for Visit * Reason Onset Date Comments Referral 11/09/2013 Encounter Details Date Type Department Care Team (Late st Contact Info) Description 11/09/2013 Telephone [place] [phone] Bebeto Lomeli MD [facility] [place] [address] Referral Social History Tobacco Use Types Packs/Day [...] encounter Miscellaneous Notes * Telephone Encounter - Amaury Marvinlarissa Fernandez - 11/09/2013 11:01 AM EDT Ask patient to verify the following: Full name: Ken Mckeon : 1945 Phone number: [phone] (home) [address]ailing address: [address] [facility] [address] Intake: LEFT MIDDLE FINGER PAIN Is this an injury that happened: NO JUST OVER USE ?? At work? ?? Playing a sport? ?? If yes to either, what is DOI? Tell me how this how long you've had these symptoms? A FEW MONTHS Has anyone ever seen you before for this issue? PCP Have you tried: NO ?? Physical Therapy ?? INJECTION ?? Other therapies Have you had any of the following studies for this issue? NO ?? X-Ray ?? MRI ?? CT Scan ?? LABS Have you seen an Orthopaedic surgeon for the this issue? NO If YES: Who did you see? Where were you seen (facility)? When? Phone # Fax# Have you ever had surgery for this issue? If YES and different than above: Who performed surgery? Where did you have the surgery (facility)? When? Phone # Fax# If patient is implanted with hardware fixation or joint prosthesis retrieve OPERATIVE REPORT and IMPLANT STICKERS. documented in this encounter Plan of Treatment Upcoming Encounters Date Type Department Care Team (Late st Contact Info) Description 12/15/2024 11:30 AM EDT Office Visit [place] [address] Charline Ziegler MD [facility] [place] [address] documented as of this encounter Visit Diagnoses Not on filedocumented in this encounter Care Teams Pipe Recovery Specialist Relationship Specialty Start Date End Date Reji Adams MD [facility] [place] [address] PCP - General 02/12/12 06/27/15 documented as of this encounter
--- OUTSIDE RECORDS SUMMARY | 2024-07-09 11:19 | XMS_ITS | Encounter Summary ---
Author Organization [facility] Address [facility] [place] [address] Care Team Providers Care Director Auto Name Role Phone Reji Adams MD Primary Care Provider [phone] Encounter Details Date Type Department Care Team (Late st Contact Info) Description 09/09/2013 Orders [place] [phone] Abbie Butcher PA [facility] [place] [address] Bilateral shoulder pain (Primary Dx) Social History Tobacco Use [...] 11:30 AM EDT Office [place] [address] Charline Ziegler MD [facility] [place] [address] documented as of this encounter Results * XR Bilateral Shoulders Minimum 2 views (09/13/2013 1:52 PM EST) Anatomical Region Laterality Modality Shoulder Bilateral Radiographic Chelsea ging 09/13/2013 1:52 PM EST Narrative 09/13/2013 3:30 PM EST Examination BILATERAL SHOULDERS MIN 2 VIEWS Clinical History bilateral shoulder pain sp rtc Comparison November 2012 pint. Technique Findings Unchanged The bilateral AC joint arthropathy and glenoid humeral joint osteoarthropathy represented by osteophyte formation. No dislocation or fracture. ??The visualized lungs are clear. ?? Right shoulder: Unchanged right para-articular calcification representing calcific rotator cuff tendinopathy. ?? Impression ? 1. No change from last examination. ? 2. 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 ? 3. Right calcific rotator cuff tendinopathy. Procedure Note Liberty Diaz MD - 09/13/2013 Examination BILATERAL SHOULDERS MIN 2 VIEWS Clinical History bilateral shoulder pain sp rtc Comparison November 2012 pint. Technique Findings Unchanged The bilateral AC joint arthropathy and glenoid humeral joint osteoarthropathy represented by osteophyte formation. No dislocation or fracture. The visualized lungs are clear. Right shoulder: Unchanged right para-articular calcification representing calcific rotator cuff tendinopathy. Impression 1. No change from last examination. 2. 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 3. Right calcific rotator cuff tendinopathy. Frantz Dunn MD IMG DX ORDERABLES documented in this encounter Visit Diagnoses Diagnosis Bilateral shoulder pain- Primary Pain in joint, shoulder region Bilateral shoulder pain Pain in joint, shoulder region documented in this encounter Care Teams Director Auto Relationship Specialty Start Date End Date Reji Adams MD [facility] [place] [address] PCP - General 02/12/12 06/27/15 documented as of this encounter
--- OUTSIDE RECORDS SUMMARY | 2024-07-09 11:19 | XMS_ITS | Encounter Summary ---
Author Organization [facility] Address [facility] [place] [address] Care Team Providers Care Food Products Sales Representative Name Role Phone Reji Adams MD Primary Care Provider [phone] Reason for Visit * Reason Comments Left Hand Pain Encounter Details Date Type Department Care Team (Late st Contact Info) Description 01/25/2014 11:00 AM EDT Office [place] [address] Abbie Butcher PA [facility] [place] [address] Finger pain, left (Primary Dx) Discharge Disposition: Home Social History [...] Sign Reading Time Taken Comments Blood Pressure 108/75 01/25/2014 11:36 AM EDT RI GHT ARM Pulse 75 01/25/2014 11:36 AM EDT Temperature - - Respiratory Rate - - Oxygen Saturation - - Inhaled Oxygen Concentration - - Weight 100.7 kg (222 lb) 01/25/2014 11:36 AM EDT PT STATED Height 180.3 cm (5' 11) 01/25/2014 11:36 AM EDT PT STATED Body Mass Index 30.96 01/25/2014 11:36 AM EDT documented in this encounter Progress Notes * Abbie Butcher PA - 01/25/2014 12:06 PM EDT PATIENT NAME: Ken Mckeon AGE: 68 y.o. MR#: [id number] DATE OF VISIT: 01/25/2014 DATE OF INJURY/ONSET: October 2013 STAFF: Dr. Lomeli CHIEF COMPLAINT: follow up for left long finger pain HISTORY OF PRESENT ILLNESS: Mr. Mckeon is a 68 y.o. year old male who comes into clinic today for follow up regarding the left long finger. I have evaluated this patient in the past for shoulder pain. I gave him a subacromial cortisone injection at my last visit and he states it is dramatically improved his shoulder symptoms. He presents today for evaluation of his left long finger. He has been evaluated by Dr. Ann with Dr. Lomeli for this complaint in the past. It was felt that he may have some mild flexor tenosynovitis which was not causing any triggering at his last encounter. He states that his symptoms have continued to persist. While he is able to continue with his activities, [place], he finds that his finger pain will become exacerbated afterwards. He does not have any triggering, but has pain at the A1 cheikh that extends over the volar aspect of the finger. He also has some pain dorsally over the MCP joint. Today his symptoms are not too bad. He has some diminished sensation to his fingers, but he states that he was told that this was related to cervical spine issues. PHYSICAL EXAM: Mr. Mckeon is alert and oriented. He appears in no acute discomfort and is resting comfortably in the exam room. Inspection: No erythema, ecchymosis, or swelling involving the patient's left long finger. Palpation: Markedly tender to palpation over the A1 cheikh. There is a click with full passive flexion, but no tia locking. There also is some crepitus along the flexor tendon sheath. No palpable extensor tendon subluxation. MCP joint is nontender dorsally. ROM/Strength: FDS, FDP tendons are intact. He continues to have full finger range of motion with pain at end range flexion. Orthopedic testing: Negative Tinel's at the carpal tunnel. Negative Phalen's and Emily's compression. PIP joint remained stable. Neurovascular: Sensation to light touch is intact with good distal perfusion RADIOLOGICAL STUDIES: No new studies, previous x-rays were reviewed ASSESSMENT: Probable left long finger flexor tenosynovitis PLAN: I reviewed the x-rays with the patient today. He does have some mild arthritic change primarily at the DIP joint, but this alone would not explain his symptoms. It seems as though he has flexortenosynovitis which becomes exacerbated with activity. It was mentioned at his last visit that a cortisone injection may provide better improvement. Since he had excellent improvement after his shoulder cortisone injection, he would like to see if an injection into his finger will also be helpful. Please see my injection note below. He is going to keep track of this symptom improvement after thisinjection. We discussed that if he has partial improvement we could consider a second injection approximately 4 weeks later. He may continue with activity as tolerated in the meantime. He will returnfor follow up in approximately 4-6 weeks if his symptoms persist. The patient understands to contact us if they have any other questions or concerns. The above documentation was completed using [employer] voice recognition software. PROCEDURE NOTE: Left long finger TRIGGER FINGER INJECTION A time-out was performed and the left long finger was confirmed to be the site of [...] injection site. I also discussed with the patient that cortisone is not healthy for muscle tendons or cartilage and that there is an increased risk with repeated injections. The skin was prepped widely over the palmar aspect of the base of the finger with betadine. Using sterile technique, the needle was advanced into the flexor crease at the level of the A1 cheikh . A steroid injection was then performed using 2cc 1% plain Lidocaine and 1cc (6 mg) of Celestone. The skin was cleaned with alcohol and a band-aid was applied. The patient tolerated the procedure well. documented in this encounter Plan of Treatment Upcoming Encounters Date Type Department Care Team (Late st Contact Info) Description 12/15/2024 11:30 AM EDT Office Visit Gastroenterology at [facility] [place] [address] Charline Ziegler MD [facility] [place] [address] documented as of this encounter Visit Diagnoses Diagnosis Finger pain, left- Primary Pain in limb documented in this encounter Administered Medications Inactive Administered Medications - up to 3 most recent administrations Medication Order MAR Action Action Date Dose Rate Site betamethasone acetate-betamethasone sodium phosphate (CELESTONE) injection 6 mg 6 mg, Intra-Lesional, ONCE, 1 dose, On Fri01/25/14 at 1230, Routine Given 01/25/2014 12:08 PM EDT 6 mg lidocaine (XYLOCAINE) 10 mg/mL (1 %) injection 20 mg 20 mg, Subcutaneous, ONCE, 1 dose, On Fri01/25/14 at 1230, Routine Given 01/25/2014 12:08 PM EDT 20 mg documented in this encounter Care Teams Food Products Sales Representative Relationship Specialty Start Date End Date Reji Adams MD [facility] GENERAL [place] [address] PCP - General 02/12/12 06/27/15 documented as of this encounter
--- OUTSIDE RECORDS SUMMARY | 2024-07-09 11:19 | XMS_ITS | Encounter Summary ---
Author Organization [facility] Address [facility] [place] [address] Care Team Providers Care Senior Research Analyst Name Role Phone Reji Adams MD Primary Care Provider [phone] Reason for Visit * Reason Onset Date Comments Shoulder Pain 11/26/2013 Encounter Details Date Type Department Care Team (Late st Contact Info) Description 11/26/2013 [place] [phone] Roderick Perkins MD [facility] [place] [address] Shoulder Pain Social History Tobacco Use Types Packs/Day [...] encounter Miscellaneous Notes * Telephone Encounter - Colette Curran RN - 11/26/2013 12:17 PM EDT Steroid shoulder injection Patient called requesting subacromial shoulder injection. Will direct this to statistical secretary to make appointment in clinic * Telephone Encounter - Josh Tressa Caldwell - 11/26/2013 10:52 AM EDT Patient called and would like to proceed with the left shoulder injection that was discussed duringhis 09/28/13 office visit here. I cannot tell from the note if this is something we would do for him in the office or if we need a Fluoro order placed for him to have this done there. Please place order if this will be done under x-ray if not please route message to [employer] for in clinic inje ction can be booked. Patient's phone number is [phone]. documented in this encounter Plan of Treatment Upcoming Encounters Date Type Department Care Team (Late st Contact Info) Description 12/15/2024 11:30 AM EDT Office [place] [address] Charline Ziegler MD [facility] [place] [address] documented as of this encounter Visit Diagnoses Not on filedocumented in this encounter Care Teams Senior Research Analyst Relationship Specialty Start Date End Date Reji Adams MD [facility] GENERAL [place] [address] PCP - General 02/12/12 06/27/15 documented as of this encounter
--- OUTSIDE RECORDS SUMMARY | 2024-07-09 11:19 | XMS_ITS | Encounter Summary ---
Author Organization [facility] Address [facility] [place] [address] Care Team Providers Care Angular Developer Name Role Phone Reji Adams MD Primary Care Provider [phone] Encounter Details Date Type Department Care Team (Latest Contact Info) Description 09/13/2013 1:34 PM EST - 09/13/2013 11:59 PM [facility] Hospital Encounter XRay at [address] [place] [address] Bilateral shoulder pain Social History Tobacco Use Types [...] 81 mg by mouth daily. 08/02/2014 Saw Danube 500 mg capsule Take 500 mg by [...] 11:30 AM EDT Office Visit Gastroenterology at [facility] [place] [place] [address] Charline Ziegler MD [facility] [place] [address] documented as of this encounter Procedures Procedure Name Priority Date/Time Associated Diagnosis Comments XR SHOULDERS MIN 2 VIEWS BILAT Routine 09/13/2013 1:52 PM EST Bilateral shoulder pain documented in this encounter Results * XR Bilateral Shoulders [...] region documented in this encounter Care Teams Angular Developer Relationship Specialty Start Date End Date Reji Adams MD [facility] [place] [address] PCP - General 02/12/12 06/27/15 documented as of this encounter
--- OUTSIDE RECORDS SUMMARY | 2024-07-09 11:19 | XMS_ITS | Encounter Summary ---
Author Organization [facility] Address [facility] [place] [address] Care Team Providers Care Anthropology And Archeology Instructor Name Role Phone Reji Adams MD Primary Care Provider [phone] Reason for Visit * Reason Comments Left Finger Pain wrist hand finger pa in Encounter Details Date Type Department Care Team (Late st Contact Info) Description 11/22/2013 3:05 PM EDT [place] [address] Gary Lomeli MD [facility] [place] [address] Pain in finger of left hand (Primary Dx) Discharge Disposition: Home Social History [...] Sign Reading Time Taken Comments Blood Pressure 104/61 11/22/2013 3:20 PM EDT Pulse 83 11/22/2013 3:20 PM EDT Temperature - - Respiratory Rate - - Oxygen Saturation - - Inhaled Oxygen Concentration - - Weight 97.5 kg (215 lb) 11/22/2013 3:20 PM EDT Height 179.1 cm (5' 10.5) 11/22/2013 3:20 PM ED T Body Mass Index 30.41 11/22/2013 3:20 PM EDT documented in this encounter Progress Notes * Gary Lomeli MD - 11/29/2013 3:39 PM EDT I examined Ken Mckeon and I agree with Dr. Celis's note. GARY LOMELI MD * Leah Ann MD - 11/22/2013 4:14 PM EDT DATE OF SERVICE: 11/22/2013 ATTENDING PHYSICIAN: Gary Lomeli MD CHIEF COMPLAINT: Left long finger pain. HISTORY OF PRESENT ILLNESS: Ken Mckeon is a 68-year-old very pleasant right hand dominant male who presents with left long finger pain today. 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 He notes that the pain is over the pad of his left middle finger and then also up into the joint of his finger at his PIP and DIP joints. He states that resting his hand on a steering wheel causes acute discomfort over the level of the MCP joint in his middle digit. He has seen his PCP who recommended exercises. He has been doing these, but he states that the discomfort is not improving. He is very adamant that he continues with Orlebar Brown, which is his passion. He denies any numbness or tingling. He presents today to discuss further care and management. PAST MEDICAL HISTORY: Neck pain, shoulder pain, back pain, varicose veins. MEDICATIONS: Updated in eD-H. PHYSICAL EXAMINATION: General: The patient in no acute distress. Cardiac: Regular rate and rhythm by palpation. Pulmonary: No increased work of breathing. Left Upper Extremity: Tender nodule at the level of the A1 cheikh on the middle digit. When the finger is flexed and extended, the nodule tends to move as if it is part of the tendon, it is not triggering. There is some mild fullness in this area. Sensation is intact to light touch distally and intact to light touch over median, radial, and ulnar nerve distributions. Mild tenderness with palpation over the PIP and DIP joints as well as the MCP. No tenderness with palpation over the anatomic snuffbox. Motor intact to EPL, FPL, finger flexion and extension, and wrist flexion and extension. RADIOLOGY: Multiple views of the right hand reveal mild arthritis with spurring of the right long finger MCP joint. Otherwise, no fractures and no dislocations noted. ASSESSMENT AND PLAN: Ken Mckeon is a 68-year-old right hand dominant st who presents with left long finger discomfort today. 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 We discussed with him that an injection of steroid into the tendon sheath may address a lot of his symptoms, specifically the symptoms he gets when his hand is resting on top of the steering wheel or the tenderness with palpation of the nodule at the A1 cheikh. The patient would like to consider a steroid injection, but he understands that some of his discomfort may be coming from his mild arthritis. He will continue to do archery and rest if he becomes more symptomatic or consider switching to his right hand as his drawer upfitter. He will call us on a p.r.n. basis to schedule an injection for his presumed flexor tenosynovitis. If he becomes more symptomatic, the patient will contact us to schedule an injection. The patient was seen in tandem with Dr. Lomeli. The patient states understanding and agreement with plan. documented in this encounter Plan of Treatment Upcoming Encounters Date Type Department Care Team (Late st Contact Info) Description 12/15/2024 11:30 AM EDT Office [place] [address] Charline Ziegler MD [facility] [place] [address] documented as of this encounter Visit Diagnoses Diagnosis Pain in finger of left hand- Primary Pain in limb documented in this encounter Care Teams Anthropology And Archeology Instructor Relationship Specialty Start Date End Date Reji Adams MD [facility] GENERAL [place] [address] PCP - General 02/12/12 06/27/15 documented as of this encounter
--- OUTSIDE RECORDS SUMMARY | 2024-07-09 11:19 | XMS_ITS | Encounter Summary ---
Author Organization [facility] [place] [address] Care Team Providers Care Camp Attendant Name Role Phone Reji Adams MD Primary Care Provider [phone] Reason for Visit * Reason Comments Neck Pain Encounter Details Date Type Department Care Team (Late st Contact Info) Description 08/16/2014 1:55 PM EST Office [place] [address] Cyndi Valencia ZINC ETCHER [facility] [place] [address] Cervical stenosis of spinal canal Discharge Disposition: [...] - - Weight 102.1 kg (225 lb) 08/16/2014 2:36 PM EST Height 180.3 cm (5' 11) 08/16/2014 2:36 PM EST Body Mass Index 31.38 08/16/2014 2:36 PM EST documented in this encounter Progress Notes * Cyndi Valencia, ZINC ETCHER - 08/16/2014 2:37 PM EST Chief complaint: Chief Complaint Patient presents with ??? Neck Pain History of present illness:This patient is a 68 y.o. male that presents to the spine center for chronic neck pain and update on his neck issues. He reports that he was seen [address] [facility] surgery told him he could have a simple operation alleviate his neck and left arm symptoms and then by Dr. Andres who felt that it would be a three-level surgery which she interpreted as being 3 different surgeries. Since then he reports an increase in numbness in the right first 3 radial digits. Occasionally he'll get a sharp pain in his neck when he turns his head. As 5-8 on a scale of 10. He has since had a shoulder injection which pretty much alleviated his left arm symptoms. Extension doesseem to make his neck pain worse. He has no difficulty sleeping and no gait or balance disturbance and no regular exercise habits the winter. Past medical history:cervical spondylosis Social and family history:this is a gentlemanwho chews tobacco does not use alcohol. He isretired. Problem List: Patient Active Problem List Diagnosis Code ??? [...] ??? Back pain 724.5 ??? Ileitis 558.9 ??? Finger pain 729.5 Review of Systems:positive for a reticulocyte bowels but no other GI, , constitutional symptoms and he specifically denies any loss of bowel or bladder control. Medications and allergies were reviewed and updated. Physical Examination:is a mildly overweight gentleman age 68. Affect is slightly blunted. His shoulders, hips, knees are grossly level to inspection he is nontender to palpation. He walks without a limp and can walk on heels and toes and tandem walk without any difficulty. He can arise from seat without using his hands. He has normal strength and sensation and reflexes throughout. There is no Duran or clonus and Babinski with downgoing toes. Diagnostic data:his MRI from 2012 was reviewed and does show some significant narrowing at the C45 and C3-4. There appearsto be signal change in the cord on the right at C.3 -4 Assessment:significant cervical canal stenosis without evidence of myelopathy. Plan:did discuss with the patient that I think is unlikely Dr. Andres would recommend surgery since he is not having any weakness or balance difficulties or pain. I discussed the signs and symptoms of myelopathy with him. I did tell him I would review his new numbness in his fingertips with Dr. Andres and ask if he wished to see the patient. This note was written with voice recognition software documented in this encounter Plan of Treatment Upcoming Encounters Date Type Department Care Team (Late st Contact Info) Description 12/15/2024 11:30 AM EDT Office [place] [address] Charline Ziegler MD [facility] [place] [address] documented as of this encounter Visit Diagnoses Diagnosis Cervical stenosis of spinal canal Spinal stenosis in cervical region documented in this encounter Care Teams Camp Attendant Relationship Specialty Start Date End Date Reji Adams MD [facility] [place] [address] PCP - General 02/12/12 06/27/15 documented as of this encounter
--- OUTSIDE RECORDS SUMMARY | 2024-07-09 11:19 | XMS_ITS | Encounter Summary ---
Author Organization [facility] Address [facility] [place] [address] Care Team Providers Care Fruit Cutter Name Role Phone Reji Adams MD Primary Care Provider Encounter Details Date Type Department Care Team (Latest Contact Info) Description 11/22/2013 2:20 PM EDT - 11/22/2013 11:59 PM EDT Hospital Encounter XRay at [address] [place] [address] Finger pain, left Social History Tobacco Use Types [...] Take 1 tablet by mouth daily. cyclobenzaprine (FLEXERIL) 10 mg tabletIndications:Neck pain Take 1 tablet by mouth 3 times daily as needed for Muscle spasms. 30 tablet 0 10/11/2013 01/25/2014 ALPRAZolam (XANAX) 0.25 mg tablet Take 0.25 mg by mouth 3 times daily as needed. 03/19/2018 aspirin 81 mg EC tablet Take 81 mg by mouth daily. 08/02/2014 Saw Binger 500 mg capsule Take 500 mg by [...] 11:30 AM EDT Office Visit Gastroenterology at [facility] [place] [address] Charline Ziegler MD [facility] [place] [address] documented as of this encounter Procedures Procedure Name Priority Date/Time Associated Diagnosis Comments XR FINGER MINIMUM 2 VIEWS Routine 11/22/2013 2:29 PM EDT Finger pain, left documented in this encounter Results * XR finger minimum 2 views (11/22/2013 2:29 PM EDT) Anatomical Region Laterality Modality Hand N/A Radiographic Chelsea ging 11/22/2013 2:29 PM EDT Narrative 11/22/2013 2:43 PM EDT Examination FINGER MIN 2 VIEWS/LEFT Clinical History Left long finger pain Comparison None. Technique 3 views ?? Findings No acute injury. ??Minimal degenerative disease involving the distal interphalangeal joints diffusely and at the base of the left thumb. ??Alignment is normal. ??Joint spaces are maintained. Impression No osseous cause of left 3rd digit pain identified. Procedure Note Karin Muñoz MD - 11/22/2013 Examination FINGER MIN 2 VIEWS/LEFT Clinical History Left long finger pain Comparison None. Technique 3 views Findings No acute injury. Minimal degenerative disease involving the distal interphalangeal joints diffusely and at the base of the left thumb.Alignment is normal. Joint spaces are maintained. Impression No osseous cause of left 3rd digit pain identified. Bebeto Lomeli MD IMG DX ORDERABLES documented in this encounter Visit Diagnoses Diagnosis Finger pain, left Pain in limb documented in this encounter Care Teams Fruit Cutter Relationship Specialty Start Date End Date Reji Adams MD [facility] GENER[facility] [place] [address] PCP - General 02/12/12 06/27/15 documented as of this encounter
--- OUTSIDE RECORDS SUMMARY | 2024-07-09 11:19 | XMS_ITS | Encounter Summary ---
Author Organization [facility] Address [facility] [place] [address] Care Team Providers Care Nut Sifter Name Role Phone Reji Adams MD Primary Care Provider [phone] Reason for Visit * Reason Comments URI started as a cold, w edday Cough at times, does cough up green stuff Headache Encounter Details Date Type Department Care Team (Late st Contact Info) Description 08/02/2014 1:45 PM EST Office Visit Internal Medicine at [place] [id number] Anika Mcfarland MD [facility] INTERNAL [place] [address] Viral URI with cough Discharge Disposition: Home Social History Tobacco Use [...] Sign Reading Time Taken Comments Blood Pressure 117/64 08/02/2014 2:28 PM EST Pulse 64 08/02/2014 2:28 PM EST Temperature 36.9 ??C (98.5 ??F) 08/02/2014 2:28 PM ES T Respiratory Rate - - Oxygen Saturation 100% 08/02/2014 2:28 PM EST Inhaled Oxygen Concentration - - Weight 104.1 kg (229 lb 6.4 oz) 08/02/2014 2:28 PM EST Height 180.3 cm (5' 11) 08/02/2014 2:28 PM EST reported Body Mass Index 31.99 08/02/2014 2:28 PM EST documented in this encounter Patient Instructions * Patient Instructions* Anika Mcfarland Wesley - 08/02/2014 2:47 PM EST Images from the original note were not included. [facility] Viral Respiratory Infection: After Your Visit Your Care Instructions Viruses are very small organisms that multiply once they enter your body. There are many types of viruses, and they cause all kinds of illnesses, including colds and the mumps. Symptoms of viral respiratory infection, such as fever, sore throat, and runny nose, usually come on quickly. Often when you have a viral respiratory infection, you do not feel well and may not feel like eating much. Most viral respiratory infections are not serious and will get better with time and self-care. Antibiotics are not used to treat a viral infection and will not help cure a viral illness. In some cases, antiviral medicine can help your body fight a serious viral infection. Follow-up care is a enrique part of your treatment and safety. Be sure to make and go to all appointments, and call your doctor if you are having problems. It's also a good idea to know your test resultsand keep a list of the medicines you take. How can you care for yourself at home? ?? Rest as much as possible until you feel better. ?? Take your medicine exactly as prescribed. Call your doctor if you think you are having a problemwith your medicine. You will get more details on the specific medicine your doctor prescribes. ?? Take an dlpu-ige-jvjjuaj pain medicine, such as acetaminophen (Tylenol), ibuprofen (Advil, Motrin), or naproxen (Aleve), as needed for pain and fever. Read and follow all instructions on the label. Do not give aspirin to anyone younger than 20. It has been linked to Edward syndrome, a serious illness. ?? Drink plenty of fluids, enough so that your urine is light yellow or clear like water. Hot fluids, such as tea or soup, may help relieve congestion in your nose and throat. If you have kidney, heart, or liver disease and have to limit fluids, talk with your doctor before you increase the amount of fluids you drink. ?? Try to clear mucus from your lungs by breathing deeply and coughing. ?? Gargle with warm salt water once an hour to help reduce swelling and throat pain. Use 1 teaspoonof salt mixed in 1 cup of warm water. ?? Do not smoke or allow others to smoke around you. If you need help quitting, talk to your doctorabout stop-smoking programs and medicines. These can increase your chances of quitting for good. To avoid spreading the virus ?? Cough or sneeze into a tissue, and then throw it away. ?? If you do not have a tissue, cover your cough or sneeze with your hand, and then clean your hand. You can also cough into your sleeve. ?? Wash your hands with soap and warm water frequently. Wash for 15 to 20 seconds each time. ?? If you do not have soap and water nearby, alcohol-based hand wipes or gel will work. When should you call for help? Call your doctor now or seek immediate medical care if: ?? You have a new or higher fever. ?? Your fever lasts more than 48 hours. ?? You have trouble breathing. ?? You have a fever with a stiff neck or a severe headache. ?? You are sensitive to light or feel very sleepy or confused. Watch closely for changes in your health, and be sure to contact your doctor if: ?? You do not get better as expected. Where can you learn more? Visit our health information library at http://Brightstorm/InfiKnoinfo You can also view health information on [employer], your personal patient account. Log in or sign up today. Enter Q795 in the search box to learn more about Viral Respiratory Infection: After Your Visit. ?? [id number] [employer]. Care instructions adapted under license by [facility]. This care instruction is for use with your licensed healthcare professional. If you have questions about a medical condition or this instruction, always ask your healthcare professional. [employer] disclaims any warranty or liability for your use of this information. Content Version: [id number]; Last Revised: September 15, 2012 documented in this encounter Progress Notes * Amrita Lozano MD - 08/03/2014 10:09 PM EST The case was discussed at the time of the visit or immediately after the visit. The assessment and plan were formulated in discussion with me and I agree with them as documented. I have reviewed the history, physical exam, assessment and plan with the resident. Major issues discussed today: Pt here with cough, sore throat Over the past 6 days. He also does chew tobacco and not sure if able to quit at this time. No fevers , chills or other worrisome signs. Plan: 1. URI- supportive care discussed and encouraged to quit chewing if possible. Call if worsening symptoms occur. * Anika Mcfarland - 08/02/2014 2:03 PM EST ESTABLISHED PATIENT VISIT Chief Complaint Patient presents with ??? URI started as a cold, friday ??? Cough at times, does cough up green stuff ??? Headache Ken Mckeon is a 68 year old male who presents with a 6-day history of upper respiratory symptoms.He reports that he developed a mild sore throat about 6 days ago, around the time his partner was experiencing a URI. The sore throat has since resolved, but he has developed an intermittent cough productive of green sputum, nasal congestion and rhinorrhea and the sensation of L ear fullness. No fevers or chills, no wheezing, no shortness of breath, no toothaches. He has tried Robitussin DM, restand increasing his fluid intake with minimal improvement in his symptoms. He reports that he continues to use chewing tobacco. Had planned to quit on July 28 but a bunch of things came up and I just can't right now. ROS: Constitutional - no fevers, chills, weight loss or gain, fatigue HEENT - no difficulty swallowing, hearing, + nasal congestion, rhinorrhea Respiratory - no new SOB, MARTIN, wheeze, + cough, +sputum production Cardiovascular - no new CP, palpitations, angina, edema, claudication Gastrointestinal - no new abdominal pain, nausea, GERD, constipation, diarrhea, blood in stool - no new difficulty urinating, incontinence or dysuria. Musculoskeletal - no new weakness, pain at rest or with movement Skin - no new rashes All other systems negative Patient Active Problem List Diagnosis ??? Finger [...] 1 tablet by mouth daily. ??? Saw [place] 500 mg capsule Take 500 mg by mouth daily. ??? Mavis Extract 500 mg Cap Take 1 capsule by mouth daily. ??? naproxen sodium (ALEVE) 220 mg tablet Take 220 mg by mouth as needed. ??? [DISCONTINUED] traZODone (DESYREL) 50 mg Tablet Take 0.5-1 tablets by mouth nightly. 90 tablet 3 ??? [DISCONTINUED] aspirin 81 mg EC tablet Take 81 mg by mouth daily. No current facility-administered medications on file prior to visit. Allergies Allergen Reactions ??? Penicillins Tongue [...] per week ??? Drug Use: No ??? Sexual Activity: Partners: Female Other Topics Concern ??? Not on file Social History Narrative Physical Exam: BP 117/64 Pulse 64 Temp(Src) 36.9 ??C (98.5 ??F) Ht 180.3 cm (5' 11) Wt 104.055 kg (229 lb6.4 oz) BMI 32.01 kg/m2 SpO2 100% General - Pleasant, conversant, well-appearing man in no acute distress. ENT - Mouth without lesions. No edema, erythema or exudate in posterior pharynx. No TTP over frontal, ethmoid or maxillary sinuses. Tympanic membranes with mild opacification bilaterally. Eyes- EOMI. PERRL. Not jaundiced. Noninjected Neck - No cervical lymphadenopathy. Lungs - Clear to auscultation. No wheezes, crackles or rhonchi. Heart - RRR, S1,S2, no audible murmur, gallop or rub. Abdomen/GI - Soft, nontender, normal active bowel sounds, neg hsm or masses. Extremities - No clubbing, cyanosis or edema. Pulses intact. Assessment and Plan: Ken is a 68 year old male with a 6-day history of upper respiratory symptoms which appear most consistent with a viral URI. Physical exam was largely unremarkable. We reviewed recommendations forsupportive care and he agreed with the plan for no antibiotics at this time. We also discussed the possibility of using this time to cut down on chewing tobacco use--although he may be unable to fully quit at this time, cutting down was strongly encouraged. Further discussed the possibility of a secondary bacterial infection in the coming days; he will monitor for fever, changes in sputum production. 1. Viral URI - received patient education handout on viral URIs - continue supportive care: fluids, rest, Robitussin DM - encouraged cutting down on chewing tobacco Return to clinic PRN or for new febrile episodes or changes in sputum production. documented in this encounter Plan of Treatment Upcoming Encounters Date Type Department Care Team (Late st Contact Info) Description 12/15/2024 11:30 AM EDT Office [place] [address] Charline Ziegler MD [facility] [place] [address] documented as of this encounter Visit Diagnoses Diagnosis Viral URI with cough Acute upper respiratory infections of unspecified site documented in this encounter Care Teams Nut Sifter Relationship Specialty Start Date End Date Reji Adams MD [facility] [address] [facility] [place] [address] PCP - General 02/12/12 06/27/15 documented as of this encounter
--- OUTSIDE RECORDS SUMMARY | 2024-07-09 11:19 | XMS_ITS | Encounter Summary ---
Author Organization [facility] Address [facility] [place] [address] Care Team Providers Care Virtual Recruiter Name Role Phone Reji Adams MD Primary Care Provider Encounter Details Date Type Department Care Team (Late st Contact Info) Description 11/18/2013 Orders [place] [id number] Bebeto Lomeli MD [facility] [place] [address] Finger pain, left (Primary Dx) Social History Tobacco Use Types [...] EDT Office [place] [address] Charline Ziegler MD [facility] [place] [address] documented as of this encounter Results * XR finger minimum [...] Finger pain, left- Primary Pain in limb Finger pain, left Pain in limb documented in this encounter Care Teams Virtual Recruiter Relationship Specialty Start Date End Date Reji Adams MD [facility] [address] [place] [address] PCP - General 02/12/12 06/27/15 documented as of this encounter
--- OUTSIDE RECORDS SUMMARY | 2024-07-09 11:19 | XMS_ITS | Encounter Summary ---
Author Organization [facility] [place] [address] Care Team Providers Care Refrigeration Operator Name Role Phone Reji Adams MD Primary Care Provider [phone] Encounter Details Date Type Department Care Team (Late st Contact Info) Description 01/19/2014 Telephone [place] [phone] Nancy Seay, [facility] [place] [address] Social History Tobacco Use Types Packs/Day Years [...] encounter Miscellaneous Notes * Telephone Encounter - Nancy Seay [facility] - 01/19/2014 11:35 AM EDT Pt referred to behavioral health clinician by PCP due to anxiety and depression. I spoke with pt about this; feels symptoms have exacerbated at the beginning of this year due to a combination of reasons. Pt is not interested in medication. He would like to try therapy/CBT. I have emailed him a listof providers in [place] area as well as closer to the hospital. I also suggested [facility] and will make a referral to [facility] as well, though tends to be a 1-2 month wait. I am available to pt should he need further assistance. documented in this encounter Plan of Treatment Upcoming Encounters Date Type Department Care Team (Late st Contact Info) Description 12/15/2024 11:30 AM EDT Office [place] [address] Charline Ziegler MD [facility] [place] [address] documented as of this encounter Visit Diagnoses Not on filedocumented in this encounter Care Teams Refrigeration Operator Relationship Specialty Start Date End Date Reji Adams MD [facility] [place] [address] PCP - General 02/12/12 06/27/15 documented as of this encounter
--- OUTSIDE RECORDS SUMMARY | 2024-07-09 11:19 | XMS_ITS | Encounter Summary ---
[facility] Address [facility] [place] [address] Care Team Providers Care Critical Care Physician Assistant Name Role Phone Reji Adams MD Primary Care Provider Reason for Visit * Reason Comments Other middle finger left h and, painful at joint Encounter Details Date Type Department Care Team (Late st Contact Info) Description 10/28/2013 10:15 AM EDT Office Visit Internal Medicine at [address] [address] Myra Avery MD [facility] [place] [address] Overuse injury (Primary Dx); Pain in finger of left hand Discharge [...] Sign Reading Time Taken Comments Blood Pressure 121/76 10/28/2013 10:36 AM EDT Pulse 70 10/28/2013 10:36 AM EDT Temperature 36.6 ??C (97.9 ??F) 10/28/2013 10:36 AM E DT Respiratory Rate - - Oxygen Saturation 99% 10/28/2013 10:36 AM EDT Inhaled Oxygen Concentration - - Weight 98.9 kg (218 lb) 10/28/2013 10:36 AM EDT Height 180.3 cm (5' 11) 10/28/2013 10:36 AM EDT Body Mass Index 30.4 10/28/2013 10:36 AM EDT documented in this encounter Patient Instructions * Patient Instructions* Myra Avery MD - 10/28/2013 10:48 AM EDT Images from the original note were not included. Thank you for coming in to see us today. Brief summary of what we discussed: 1) You were seen in clinic today for pain in the left middle finger. This is likely secondary to overuse and inflammation 2) Diagnostic Tests: - None today 3) Medication Changes: - Start ibuprofen 600mg three times a day with meals for 2 days only, and then only take as needed 4) Special Instructions: - Ice and rest the hand - avoid shooting your bow for a good 1-2 weeks - We may consider occupational therapy for your hand if things do not improve with ice, rest, and anti-inflammatory medication 5) Follow-up as needed if the pain does not subside with rest and anti- inflammatory medications Should you have worsening pain, fevers, chills, chest pain, shortness of breath, abdominal pain, blood in stool or black tarry stools, please call us immediately or go to the nearest Emergency Dept for urgent evaluation. [facility] Hand Arthritis: Exercises Your Care Instructions Here are some examples of exercises for hand arthritis. Start each exercise slowly. Ease off the exercise if you start to have pain. Your doctor or physical therapist will tell you when you can start these exercises and which ones will work best for you. How to do the exercises Tendon glides In this exercise, the steps follow one another to a make a continuous movement. 1. With your affected hand, point your fingers and thumb straight up. Your wrist should be relaxed,following the line of your fingers and thumb. 2. Curl your fingers so that the top two joints in them are bent, and your fingers wrap down. Your fingertips should touch or be near the base of your fingers. Your fingers will look like a hook. 3. Make a fist by bending your knuckles. Your thumb can gently rest against your index (pointing) finger. 4. Unwind your fingers slightly so that your fingertips can touch the base of your palm. Your thumbcan rest against your index finger. 5. Move back to your starting position, with your fingers and thumb pointing up. 6. Repeat the series of motions 8 to 12 times. 7. Switch hands and repeat steps 1 through 6, even if only one hand is sore. Intrinsic flexion 1. Rest your affected hand on a table and bend the large joints where your fingers connect to your hand. Keep your thumb and the other joints in your fingers straight. 2. Slowly straighten your fingers. Your wrist should be relaxed, following the line of your fingersand thumb. 3. Move back to your starting position, with your hand bent. 4. Repeat 8 to 12 times. 5. Switch hands and repeat steps 1 through 4, even if only one hand is sore. Finger extension 1. Place your affected hand flat on a table. 2. Lift and then lower one finger at a time off the table. 3. Repeat 8 to 12 times. 4. Switch hands and repeat steps 1 through 3, even if only one hand is sore. MP extension 1. Place your good hand on a table, palm up. Put your affected hand on top of your good hand with your fingers wrapped around the thumb of your good hand like you are making a fist. 2. Slowly uncurl the joints of your affected hand where your fingers connect to your hand so that only the top two joints of your fingers are bent. Your fingers will look like a hook. 3. Move back to your starting position, with your fingers wrapped around your good thumb. 4. Repeat 8 to 12 times. 5. Switch hands and repeat steps 1 through 4, even if only one hand is sore. PIP extension (with MP extension) 1. Place your good hand on a table, palm up. Put your affected hand on top of your good hand, palm up. 2. Use the thumb and fingers of your good hand to grasp below the middle joint of one finger of your affected hand. 3. Straighten the last two joints of that finger. 4. Repeat 8 to 12 times. 5. Repeat steps 1 through 4 with each finger. 6. Switch hands and repeat steps 1 through 5, even if only one hand is sore. DIP flexion 1. With your good hand, grasp one finger of your affected hand. Your thumb will be on the top side of your finger just below the joint that is closest to your fingernail. 2. Slowly bend your affected finger only at the joint closest to your fingernail. 3. Repeat 8 to 12 times. 4. Repeat steps 1 through 3 with each finger. 5. Switch hands and repeat steps 1 through 4, even if only one hand is sore. Follow-up care is a enrique part of your treatment and safety. Be sure to make and go to all appointments, and call your doctor if you are having problems. It's also a good idea to know your test resultsand keep a list of the medicines you take. Where can you learn more? Visit our [employer] information library at [email or web address]/[employer] You can also view health information on [employer], your personal patient account. Log in or sign up today. Enter E040 in the search box to learn more about Hand Arthritis: Exercises. ?? [id number] [employer]. Care instructions adapted under license by [facility]. This care instruction is for use with your licensed healthcare professional. If you have questions about a medical condition or this instruction, always ask your healthcare professional. [employer] disclaims any warranty or liability for your use of this information. Content Version: [id number]; Last Revised: August 08, 2011 documented in this encounter Progress Notes * Reji Adams MD - 10/28/2013 10:59 AM EDT The case was discussed at the time of the visit or immediately after the visit. The assessment and plan were formulated in discussion with me and I agree with them as documented. I have reviewed the history, physical exam, assessment and plan with the resident. Major issues discussed today: Pt complaining of L middle finger discomfort. Is shooting bow daily and that is finger that he pulls bow with. No fevers, chills. No other joint pain with exception of neck (chronic) Exam -completely unremarkable Plan: Likely overuse injury -scheduled ibuprofen -stop shooting bow for a few weeks * Myra Avery MD - 10/28/2013 10:34 AM EDT GIM SDA Visit Note Chief Complaint Patient presents with ??? Other middle finger left hand, painful at joint HPI: Mr. Mckeon is a 68M here today with complaints of a painful finger on his left hand. Notes that it started a couple of weeks ago - affects only the 3rd digit on his left hand. This is the finger that he shoots his bow with and he shoots daily. No other joints of the hands, wrists, elbows or shouldersaffected. Tried ice, heat, topical creams, and advil PRN. Continues to shoot his bow daily. ROS: Constitutional: -fevers, -chills, -nightsweats, -fatigue/malaise, -weight changes HEENT: -sore throat, -runny nose, -changes in vision, -dizziness CVS: -chest pain, -palpitations, -MARTIN, -lightheadedness Resp: -SOB, -cough, -wheeze GI: -abdominal pain, -changes in bowel habits, -blood in stool, -black tarry stools, -nausea/emesis : -dysuria, -hematuria, -changes in frequency, -changes in stream, -incontinence MSK: -myalgias, -arthralgias, -swelling, +left 3rd digit pain as above Skin: -rashes, -pruritis Neuro: -headaches, -focal weakness, [...] 558.9 Medications: Outpatient Encounter Prescriptions as of 10/28/2013 Medication Sig Dispense Refill ??? cyclobenzaprine (FLEXERIL) 10 mg tablet Take 1 tablet by mouth 3 times daily as needed for Muscle spasms. 30 tablet 0 ??? ALPRAZolam (XANAX) 0.25 mg tablet Take 0.25 mg by mouth 3 times daily as needed. ??? aspirin 81 mg EC tablet Take 81 mg by mouth daily. ??? multivitamin (THERAGRAN) tablet Take 1 tablet by mouth daily. ??? Saw [place] 500 mg capsule Take 500 mg by mouth daily. ??? Mavis Extract 500 mg Cap Take 1 capsule by mouth daily. ??? naproxen sodium (ALEVE) 220 mg tablet Take 220 mg by mouth as needed. Allergies: Allergies Allergen Reactions ??? Penicillins Tongue swelling Physical Exam: Filed Vitals: 10/28/13 1036 BP: 121/76 Pulse: 70 Temp: 36.6 ??C (97.9 ??F) Pleasant, in NAD No obvious abnormalities of hands, wrists, elbows or shoulders. No swelling or overlying erythema of any of the joints in the hands or wrists. No TTP of the MCP/PIP/DIP. Full ROM of hands and wrists,2+ radial pulses b/l. Registered Midwife strength 5/5 b/l. A/P: 68M here today with left 3rd digit pain with an unremarkable physical exam. From the history, pt's symptoms are most likely due to overuse as he shoots his bow daily with that very finger. Discussed rest and avoiding shooting his bow, scheduled ibuprofen, and gentle hand stretches. - Ibuprofen 600mg TID x 2-3 days then PRN - Continue ice - Avoid shooting his bow for a couple of weeks while this resolves - Hand exercises provided - Consider referral to occupational therapy if symptoms do not improve - RTC PRN Patient discussed with Dr. Adams. Myra Avery PGY-3 Internal Medicine Pager [phone] documented in this encounter Plan of Treatment Upcoming Encounters Date Type Department Care Team (Late st Contact Info) Description 12/15/2024 11:30 AM EDT Office [place] [phone] Charline Ziegler MD [facility] [place] [address] documented as of this encounter Visit Diagnoses Diagnosis Overuse injury- Primary Unspecified site of sprain and strain Pain in finger of left hand Pain in limb documented in this encounter Care Teams Critical Care Physician Assistant Relationship Specialty Start Date End Date Reji Adams MD [facility] [place] [address] PCP - General 02/12/12 06/27/15 documented as of this encounter
--- OUTSIDE RECORDS SUMMARY | 2024-07-09 11:19 | XMS_ITS | Encounter Summary ---
Author Organization [facility] Address [facility] [place] [address] Care Team Providers Care Sales Floor Team Member Name Role Phone Reji Adasm MD Primary Care Provider [phone] Reason for Referral * Surgical (Urgent) - Closed Specialty Diagnoses / Procedures Referred By Duglas t Referred To Contact Orthopaedic Surgery / Orthopaedics Diagnoses Pain in joint, hand, left Reji Adams MD [facility] [place] [address] Bebeto Lomeli MD [facility] [place] [address] Referral ID Status Reason Start Date Expiration Date V isits Requested Visits Authorized [id number] Closed Consult, Test & Treat 11/09/2013 05/08/2014 1 1 Reason for Visit * Reason Onset Date Comments Left Hand Pain 11/08/2013 Encounter Details Date Type Department Care Team (Late st Contact Info) Description 11/08/2013 Telephone Internal Medicine at [place] [phone] Amrita Rodriguez RN Left Hand Pain Social History Tobacco Use Types Packs/Day [...] Telephone Encounter - Amrita Rodriguez RN - 11/09/2013 9:09 AM EDT Referral approved and sent to Ortho for Dr Lomeli. * Telephone Encounter - Amrita Rodriguez RN - 11/08/2013 2:41 PM EDT Patient called, the pain in his hand, especially area below middle finger, that is getting steadilyworse despite stopping archery and doing exercises given by Dr Avery. He declines OT referral in favor of referral to Dr Lomeli. Forwarded to Dr Adams for review. documented in this encounter Plan of Treatment Upcoming Encounters Date Type Department Care Team (Late st Contact Info) Description 12/15/2024 11:30 AM EDT Office [place] [phone] Charline Ziegler MD [facility] [place] [address] Scheduled Referrals Name Type Priority Associated Diagnoses Order Schedule Referral to Orthopaedics Outpatient Referral Routine Pain in joint, hand, left Ordered: 11/09/2013 documented as of this encounter Visit Diagnoses Diagnosis Pain in joint, hand, left- Primary documented in this encounter Care Teams Sales Floor Team Member Relationship Specialty Start Date End Date Reji Adams MD [facility] [place] [address] PCP - General 02/12/12 06/27/15 documented as of this encounter
--- OUTSIDE RECORDS SUMMARY | 2024-07-09 11:19 | XMS_ITS | Encounter Summary ---
Author Organization [facility] Address [facility] [place] [address] Care Team Providers Care Fitter Welder Name Role Phone Reji Adams MD Primary Care Provider [phone] Encounter Details Date Type Department Care Team (Late st Contact Info) Description 09/07/2013 2:45 PM EST - 09/07/2013 3:30 PM EST Surgery [place] [address] Ximena Mclaughlin MD [facility] [place] [address] COLONOSCOPY, DIAGNOSTIC (WRVU 3.26) Social History Tobacco Use Types Packs/Day Years Used Date Smoking Tobacco: Never Smokeless Tobacco: Current Chew Tobacco Cessation:Ready to Q uit: No Comments:3 cans/ week. Alcohol Use Standard [...] Sign Reading Time Taken Comments Blood Pressure 117/72 09/07/2013 3:47 PM EST Pulse 64 09/07/2013 3:47 PM EST Temperature 36.6 ??C (97.9 ??F) 09/07/2013 2:36 PM ES T Respiratory Rate 18 09/07/2013 3:47 PM EST Oxygen Saturation 99% 09/07/2013 3:47 PM EST Inhaled Oxygen Concentration - - Weight - - Height - - Body Mass Index - - documented in this encounter Discharge Instructions * Discharge Instructions* Myra Macdonald, RN - 09/07/2013 3:49 PM EST Colonoscopy What to expect after the procedure You may feel a little more gassy or bloated than usual. This is normal. You should expect the return of normal bowel function in the 2 to 3 days. Activity Because of the sedation that you received your judgement and reaction time are effected ?? Go home and rest quietly for the remainder of the day. You may resume your normal activities tomorrow. ?? Change from one position to the next slowly. You may lose your balance unexpectedly ?? Be careful on stairs, as you may be unsteady on your feet FOR THE NEXT 24 HRS ?? DO [...] producing foods for the next few days ?? Be gentle with what you choose to start with ?? Drink plenty of fluids ( unless your [...] often you need to be checked. [facility] [phone] 8a-5p Same Day Endo [phone] 7a-8p Otherwise contact [phone] and ask to speak to the pay clerk reporting process consultant Follow up care is a enrique part [...] 81 mg by mouth daily. 08/02/2014 Saw [place] 500 mg capsule Take 500 mg by mouth daily. 03/14/2020 Mavis Extract 500 mg Cap Take 1 capsule by mouth daily. 03/24/2017 naproxen sodium (ALEVE) 220 mg tablet Take 220 mg by mouth as needed. 01/04/2011 07/09/2017 documented as of this encounter H&P Notes * Ximena Mclaughlin MD - 09/07/2013 3:01 PM EST Gastroenterology and Hepatology Pre-Procedure History and Physical Exam Procedure: Colonoscopy Indication: 67M with alternating bowel movements and bloating. Recently developed RLQ pain, CT abdomen showed 8cm segment of thickened TI and mesenteric adenopathy. Colonoscopy to rule out IBD. Patient Active Problem List Diagnosis Code ??? [...] ??? Back pain 724.5 ??? Ileitis 558.9 EXAM: HEENT: Airway examined, oropharynx clear LUNGS: Clear to auscultation HEART: Regular rate and rhythm, normal S1, S2 ABDOMEN: Normal bowel sounds, soft, non tender, non distended, A/P Proceed with the planned endoscopic procedure. Risks and benefits of the procedure explained to the patient. Consent signed. documented in this encounter Miscellaneous Notes * Miscellaneous - Provider, Scanning - 09/07/2013 10:04 PM EST * Miscellaneous - Provider, Scanning - 09/07/2013 4:44 PM EST * OR Attestation - Ximena Mclaughlin MD - 09/07/2013 3:41 PM EST Attestation: Case Date: 09/07/2013 As the attending physician, I personally performed the entire procedure. XIMENA MCLAUGHLIN MD 09/07/2013 documented in this encounter Plan of Treatment Upcoming Encounters Date Type Department Care Team (Late st Contact Info) Description 12/15/2024 11:30 AM EDT Office Visit [place] [address] Charline Ziegler MD [facility] [place] [address] documented as of this encounter Procedures Procedure Name Priority Date/Time Associated Diagnosis Comments SPECIMEN TO PATHOLOGY Routine 09/07/2013 3:43 PM EST SPECIMEN TO PATHOLOGY Routine 09/07/2013 3:43 PM EST SPECIMEN TO PATHOLOGY Routine 09/07/2013 3:43 PM EST SPECIMEN TO PATHOLOGY Routine 09/07/2013 3:43 PM EST SURGICAL PATHOLOGY REPORT Routine 09/07/2013 3:42 PM EST COLONOSCOPY, DIAGNOSTIC (WRVU 3.26) 09/07/2013 2:59 PM EST lleitis noted on CT scan. ? IBD. Had referral for screening already pending but needs more urgent evaluation now COLONOSCOPY Routine 09/07/2013 2:53 PM EST documented in this encounter Results * Specimen to Pathology (surgical or derm) (09/07/2013 3:43 PM EST) AP Specimen 09/07/2013 3:43 PM EST 09/07/2013 3:43 PM EST Narrative CERNER MILLENNIUM - 09/07/2013 3:43 PM EST Specimen requisition ordered. ??Separate Pathology report to follow Ximena Mclaughlin MD PATHOLOGY/CYTOLOGY O LA Performing Organization Address [facility] Co de Phone Number [facility] [employer] * Specimen to Pathology (surgical or derm) (09/07/2013 3:43 PM EST) AP Specimen 09/07/2013 3:43 PM EST 09/07/2013 3:43 PM EST Narrative CERNER MILLENNIUM - 09/07/2013 3:43 PM EST Specimen requisition ordered. ??Separate Pathology report to follow Ximena Mclaughlin MD PATHOLOGY/CYTOLOGY O LA Performing Organization Address [facility] Co de Phone Number [facility] * Specimen to Pathology (surgical or derm) (09/07/2013 3:43 PM EST) AP Specimen 09/07/2013 3:43 PM EST 09/07/2013 3:43 PM EST Narrative CERNER MILLENNIUM - 09/07/2013 3:43 PM EST Specimen requisition ordered. ??Separate Pathology report to follow Ximena Mclaughlin MD PATHOLOGY/CYTOLOGY O LA [facility] * Specimen to Pathology (surgical or derm) (09/07/2013 3:43 PM EST) AP Specimen 09/07/2013 3:43 PM EST 09/07/2013 3:43 PM EST Narrative SOY [place] - 09/07/2013 3:43 PM EST Specimen requisition ordered. ??Separate Pathology report to follow Ximena Mclaughlin MD PATHOLOGY/CYTOLOGY O LA [facility] * Surgical Pathology Report (09/07/2013 3:42 PM EST) Final Diagnosis ? [facility] ? Provider: ?? XIMENA MCLAUGHLIN ?Pt. Name: ?? KEN COLE ? Acc #: ?[id number] ?Pt. ? Col Date: ?? 09/07/2013 ? /Sex: ?1945,(67 years),Male ? Rec Date: ?? 09/07/2013 ? LOC: ?4T ? SURGICAL PATHOLOGY ? ---Pathologic Diagnosis--- ? A - Terminal ileum, biopsy: ? Ileal mucosa, negative for diagnostic abnormality. ? B - Ascending colon, biopsy: ? Colonic mucosa, negative for diagnostic abnormality. ? C - Transverse colon, biopsy: ? Colonic mucosa, negative for diagnostic abnormality. ? D - Descending colon, biopsy: ? Colonic mucosa, negative for diagnostic abnormality. ? CR-0, CR-PX ? 09/09/13 ? BJM ? 09/09/13 Verified by: ? Fernando Mclean MD ? Pathologist ? (Electronic Signature) ? The attending pathologist whose signature appears on this report has ? reviewed all diagnostic slides and has edited the gross and/or ? microscopic portion of the report in rendering the final pathologic ? diagnosis. ? ---Gross Description--- ? A - Labeled/Fixativ e: Terminal ileum biopsy, formalin. ? Quantity/Size: Four, 0.2 cm. ? Tissue Description: Wispy, friable davila-white tissues. ? Sections/Proces sing: (T1) ? B - Labeled/Fixativ e: Ascending colon biopsy, formalin. ? Quantity/Size: Four, 0.3 x 0.2 cm. ? Tissue Description: Soft, davila-pink tissues. ? Sections/Proces sing: (T1) ? C - Labeled/Fixativ e: Transverse colon biopsy, formalin. ? Quantity/Size: Four, from 0.2 cm to 0.5 x 0.1 cm. ? Tissue Description: Soft, davila-white tissue. ? Sections/Proces sing: (T1) ? D - Labeled/Fixativ e: Descending colon biopsy, formalin. ? [facility] ? Provider: ?? XIMENA MCLAUGHLIN ?Pt. Name: ?? KEN COLE ? Acc #: ?[id number] ?Pt. ? Col Date: ?? 09/07/2013 ? /Sex: ?1945,(67 years),Male ? Rec Date: ?? 09/07/2013 ? LOC: ?4T ? SURGICAL PATHOLOGY ? Quantity/Size: Four, 0.2 cm. ? Tissue Description: Soft davila, focally hemorrhagic tissues. ? Sections/Proces sing: (T1) ??pps ? ---Clinical Information--- ? Specimen Submitted: ? A - Terminal ileum bx ? B - Ascending colon bx ? C - Transverse colon bx ? D - Descending colon bx ? Clinical History: ? Terminal ileum thickening on CT, normal appearance-biop sy and random colon ? CBX taken ? Clinical Diagnosis: ? Same 09/09/2013 5:27 PM EST [facility] GI Biopsy 09/07/2013 3:42 PM EST 09/07/2013 3:42 PM EST GI Biopsy 09/07/2013 3:42 PM EST 09/07/2013 3:42 PM EST GI Biopsy 09/07/2013 3:42 PM EST 09/07/2013 3:42 PM EST GI Biopsy 09/07/2013 3:42 PM EST 09/07/2013 3:42 PM EST Ximena Mclaughlin MD PATHOLOGY/CYTOLOGY O RDERABLES Performing Organization Address [facility]/State/[facility] Co de Phone Number [facility] [address] * COLONOSCOPY (09/07/2013 2:53 PM EST) COLONOSCOPY [facility] Patient Name: Ken Cole ? Procedure Date: 09/07/2013 2:53 PM ? Date of : 1945 ? Age: 67 ? Order #: [id number] ? Procedure: ? Colonoscopy Indications: ? RUQ pain. Ct abdomen showed a n 8cm ? thickened terminal ileum with ? mesenteric stranding Providers: ? Ximena Mclaughlin, Seth Ortega, ? RN, Pia Lopez, Ammonia Box Operator Referring MD: ?Reji Adams MD Medicines: ? Midazolam 3 mg IV, Fentanyl 150 ? micrograms IV Complications: ? No immediate complications. Procedure: ? Pre-Anesthesia Assessment: ? - Pre-procedure physical examination ? revealed no contraindications to ? sedation. ? - ASA Grade Assessment: I - A normal, ? healthy patient. ? - After reviewing the risks and ? benefits, the patient was deemed in ? satisfactory condition to undergo the ? procedure. ? - The anesthesia plan was to use ? moderate sedation/analgesia ? (conscious sedation). ? The procedure, indications, benefits, ? risks [...] and under direct visualization, ? advanced to 10 cm into the ileum. ? Careful inspection was made as the ? colonoscope was withdrawn. The ? patient tolerated the procedure well. ? The quality of the bowel preparation ? was excellent. ? Findings: ? Tender perianal examination, but no abnormalities ? seen. ? The rectum, sigmoid colon, descending colon, ? transverse colon, ascending colon and cecum appeared ? normal. Biopsies taken ? The terminal ileum up until 10cm appeared normal. ? Biopsied ? External internal hemorrhoids were found during ? retroflexion. ? Impression: ?- Normal colon ? - Normal terminal ileum ? -Moderate external and internal ? hemorrhoids Recommendation: ?Follow up with referring physician ? Consider adding soluble fibre, ? benofibre to diet to keep bowel ? movements soft and regular ? Ximena Mclaughlin Ximena M Brittanie, 09/07/2013 3:51 PM This report has been signed electronically. Number of Addenda: 0 Note Initiated On: 09/07/2013 2:53 PM PROVATION 09/07/2013 2:53 PM EST Reji Adams MD GENERAL SURGICAL ORD ERABLES PROVATION documented in this encounter Visit Diagnoses Not on filedocumented in this encounter Administered Medications Inactive Administered Medications - up to 3 most recent administrations Medication Order MAR Action Action Date Dose Rate Site fentaNYL 50mcg/mL injection ONCE PRN, Starting on Fri09/07/13 at 1503, Until Fri09/07/13 at 1614, Pain, Intra-Operative (Intra-Procedure), Routine Given 09/07/2013 3:19 PM EST 25 mcg Right Arm Given 09/07/2013 3:13 PM EST 25 mcg Ri ght Arm Given 09/07/2013 3:05 PM EST 50 mcg midazolam (PF) (VERSED) 1 mg/mL injection ONCE PRN, Starting on Fri09/07/13 at 1504, Until Fri09/07/13 at 1614, Sleep, Intra-Operative (Intra-Procedure), Routine Given 09/07/2013 3:19 PM EST 0.5 mg Right Arm Given 09/07/2013 3:13 PM EST 0.5 mg Ri ght Arm Given 09/07/2013 3:05 PM EST 1 mg Ri ght Arm documented in this encounter Active and Recently Administered Medications Times are shown in EST. PRN Medication Order 09/05/2013 09/06/2013 09/07/2013 fentaNYL 50mcg/mL injection (CANCELED) ONCE PRN, Starting on Fri09/07/13 at 1503, Until Fri09/07/13 at 1614, Pain, Intra-Operative (Intra-Procedure), Routine 1503 (Given - Provid er: Seth Ortega RN)1505 (Given - Provider: Seth Ortega RN)1513 (Given - Provider: Seth Ortega RN)1519 (Given - Provider: Seth Ortega RN) midazolam (PF) (VERSED) 1 mg/mL injection (CANCELED) ONCE PRN, Starting on Fri09/07/13 at 1504, Until Fri09/07/13 at 1614, Sleep, Intra-Operative (Intra-Procedure), Routine 1504 (Given - Provid er: Seth Ortega RN)1505 (Given - Provider: Seth Ortega RN)1513 (Given - Provider: Seth Ortega RN)1519 (Given - Provider: Seth Ortega RN) documented in this encounter Care Teams Fitter Welder Relationship Specialty Start Date End Date Reji Adams MD [facility] [place] [address] PCP - General 02/12/12 06/27/15 documented as of this encounter
--- OUTSIDE RECORDS SUMMARY | 2024-07-09 11:19 | XMS_ITS | Encounter Summary ---
Author Organization [facility] Address [facility] [place] [address] Care Team Providers Care Economic Development Manager Name Role Phone Reji Adams MD Primary Care Provider [phone] Encounter Details Date Type Department Care Team (Late st Contact Info) Description 10/13/2013 1:00 PM EDT Office Visit Physical Therapy at [facility] [address] [place] [address] Amador Joe, PT Reji Adams MD [facility] [place] [address] Neck pain Discharge Disposition: Home Social History Tobacco [...] as of this encounter Progress Notes * Amador Joe, PT - 10/13/2013 12:59 PM EDT PHYSICAL THERAPY INITIAL EXAMINATION Date of Exam/First Treatment: 10/13/2013 Date of onset: September 2013 Referring Provider: Reji Adams, Diagnosis: 1. Neck pain Medicare Certification period: 10/13/2013 - 12/13/2013 CURRENT HISTORY: Ken Mckeon is a 68 y.o. male referred to physical therapy for treatment of neck pain. He reports a long history of neck pain. His pain recently increased about a week and a half ago when his necklocked up. He suspects that his pain was related to either shoveling after a storm or using a newpillow prior to shoveling. He notes that his pain increases when watching TV at night. The TV is on a slight angle to the left. He sits in a reclining chair and supports his neck with a pillow. He has taken pain medication thelast 2 nights and this helped his sleeping. However, he reports feelings of instability in his neckwhen rising from a lying position. He states that he was presented with the option of surgery, but decided against it. 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) Activities: archery, kayaking, fishing, walk (about 1.5 mi for exercise) Prior Level of Function: mild neck pain Functional Limitations: unable to turn head, pain with lying down CLINICAL FINDINGS: Posture: forward head, kyphotic thoracic spine Range of motion and strength: Range of motion (%) Cervical flexion 50 * extension 30 * SB right 10 * SB left 10 * rotation right 20 * rotation left 15 * * = limited by pain - slow motions with crepitus in all directions Special test: (-) sharp's-octaviano Neurological: Dermatomes: slight decrease T1 on L Myotomes: UE intact Reflexes: NT Neural Tension: NT Joint mobility: hypomobile throughout entire cervical spine Palpation: increased muscle tightness on B on cervical paraspinals (L > R); significant sub-occiput tightness Flexibility: decreased in upper trapezius B Functional Outcome Score: Neck disability index (NDI): 15/50 correlating to a 30% disability per self report secondary to neck pain. CLINICAL EVALUATION AND DIAGNOSIS: These findings are consistent with facet arthropathy and cervical muscle strain. Expect with skilled physical therapy interventions patient will be able to return to prior level offunction. GOALS: Therapy Short Term Goals ( 2 wk) Patient will... 1. be indep with home exercise program. 2. Pt will demonstrate compliance with postural ed Therapy Shingles Roofer Goals ( 8 wk) Patient will... 1. demo a decrease in self report disability by reducing NDI > 10 points. 2. Pt will report 0-4/10 neck pain with all ADLs 3. Pt will have 30% improved neck ROM in all directions to improve his ability to drive G-Code: Changing & Maintaining Body Position Status Modifier CURRENT CK - At least 40 percent but less than 60 percent impaired, limited or restricted PROJECTED CI - At least 1 percent but less than 20 percent impaired, limited or restricted DISCHARGE Not Discharged Yet - Ongoing G Code Rationale: This G-Code and these disability modifiers were selected as the primary therapy goal based upon the patient's evaluation including the following functional test(s) NDI - Neck Disability Index. Current ability measures, co-morbidities and clinical judgement were also used to selectthe disability modifier. Mr. Mckeon's current G-Code functional level is 50% impaired based upon his pain score and NDI score. Medicare Therapy G-Code Date Tracking: (Update G-Code status every 10 visits or when code changes) 1 2 3 4 5 6 7 8 9 10 10/13 INITIAL TREATMENT INCLUDED: Examination and instruction in a home exercise program, patient education regarding physical therapy plan of care, anatomy and diagnosis. - postural ed on changing position of chair in relation to TV - supine chin tucks, hold 5 sec, x 10 (on HEP) - scapular squeeze (on HEP) - HEP handout PLAN: Frequency and duration: 1-2 x per week for 8 weeks Treatment: Manual Techniques, Soft tissue mobilization, Stretching, Joint mobilization, Therapeutic exercise, Patient/Family education, Body Mechanics, Posture and Home Exercise Program Total Treatment time: 40 minutes Total Timed Code Treatment: 15 minutes The plan has been discussed with the patient and Ken Mckeon has agreed with the planned treatment. AMADOR JOE, PT, DPT documented in this encounter Miscellaneous Notes * Miscellaneous - Provider, Scanning - 10/26/2013 8:36 AM EDT documented in this encounter Plan of Treatment Upcoming Encounters Date Type Department Care Team (Late st Contact Info) Description 12/15/2024 11:30 AM EDT Office [place] [address] Charline Ziegler MD [facility] [place] [address] documented as of this encounter Visit Diagnoses Diagnosis Neck pain Cervicalgia documented in this encounter Care Teams Economic Development Manager Relationship Specialty Start Date End Date Reji Adams MD [facility] [place] [address] PCP - General 02/12/12 06/27/15 documented as of this encounter
--- OUTSIDE RECORDS SUMMARY | 2024-07-09 11:19 | XMS_ITS | Encounter Summary ---
Author Organization [facility] Address [facility] [place] [address] Care Team Providers Care Inverter And Clipper Name Role Phone Reji Adams MD Primary Care Provider [phone] Reason for Visit * Reason Comments Bilateral Shoulder Pain L>R Encounter Details Date Type Department Care Team (Late st Contact Info) Description 09/13/2013 1:40 PM EST Office [place] [address] Abbie Butcher PA [facility] [place] [address] Pain in left shoulder; Bilateral shoulder pain Discharge Disposition: Home Social History [...] Reading Time Taken Comments Blood Pressure 107/73 09/13/2013 1:59 PM EST Pulse 67 09/13/2013 1:59 PM EST Temperature - - Respiratory Rate - - Oxygen Saturation - - Inhaled Oxygen Concentration - - Weight 99.8 kg (220 lb) 09/13/2013 1:59 PM EST Height 180.3 cm (5' 11) 09/13/2013 1:59 PM EST Body Mass Index 30.68 09/13/2013 1:59 PM EST documented in this encounter Progress Notes * Abbie Butcher PA - 09/13/2013 2:26 PM EST PATIENT NAME: Ken Mckeon AGE: 67 y.o. MR#: [id number] DATE OF VISIT: 09/13/2013 DATE OF INJURY/ONSET: Chronic STAFF: Dr. Perkins CHIEF COMPLAINT: follow up for L>R shoulder pain HISTORY OF PRESENT ILLNESS: Mr. Mckeon is a 67 y.o. year old male who comes into clinic today for follow up regarding the bilateral shoulders. He was last evaluated by Raymond Joseph in Dr. Perkins team clinic for this complaint. He has a history of bilateral rotator cuff repairs in the remote past. He didwell after surgery, but has had bilateral shoulder pain from time to time. He enjoys archery and isfinding it difficult for him to pull back on the bow with his left arm in particular. At his last evaluation his rotator cuff strength is intact and his x-ray showed some early arthritic change within the shoulder. He was shown some exercises by our physical therapists and has been trying to modifyhis activities as needed. He states that he has reduced the poundage on his bow, but is still having difficulty. Two weeks ago he states that he was moving a chair when he felt a tearing sensation inthe left shoulder. Since this incident his left shoulder has not quite filled right. His right shoulder has been doing relatively okay. He will still have pain time to time, but overall finds that his right shoulder has been doing well. He feels a catching sensation with overhead activity. He also finds that his bilateral hands will go numb with prolonged overhead activity. He has been seen in the spine center in the past. It sounds as though an anterior cervical disc fusion was offered, but he preferred to manage his symptoms nonoperatively if at all possible. He has not been re-evaluated recently. PHYSICAL EXAM: Mr. Mckeon is alert and oriented. He appears in no acute discomfort and is resting comfortably in the exam room. Inspection: No erythema, ecchymosis, or swelling involving the patient's bilateral shoulders. No obvious deformities are noted. He denies having any bruising or swelling after the chair episode. Palpation: Nontender over the acromioclavicular joint. He does have some tenderness along the trapezius and into the subacromial space. With activity his pain that extends over the lateral deltoid asfar as the elbow. No biceps tenderness on exam today. ROM: Forward Flexion: 160?? active bilaterally Abduction: 170?? active bilaterally External Rotation: 70?? active bilaterally Internal Rotation: Reaches to T10 Pain with decent from overhead activity Strength: 5/5 internal and external rotation. 4+/5 forward flexion and empty can on the left with discomfort. Rotator cuff strength full on the right. Orthopedic testing: Positive Neer and Clark Clark on the left, negative on the right. Negative O'Briens bilaterally. Negative horizontal adduction test bilaterally. Negative speeds and Yergason'sbilaterally. Negative Tinel's at the cubital tunnel and carpal tunnel bilaterally. Negative elbow flexion test. He states that he has pain with cervical spine rotation and lateral flexion, but this does not truly reproduce any radicular symptoms. Neurovascular: Normal motor function of the radial, median, ulnar, axillary and musculocutaneous nerves. Normal sensation along radial, median, ulnar, axillary, and lateral antebrachial cutaneous nerve distributions. Good hand perfusion. RADIOLOGICAL STUDIES: X-rays from today show no evidence of acute fracture or dislocation. 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 This overall remains unchanged from his previous evaluation. ASSESSMENT: Bilateral shoulder pain, subtle left shoulder rotator cuff weakness PLAN: We will plan on obtaining an MRI of the left shoulder for further evaluation of his rotator cuff after his recent injury. He may continue with activity as tolerated. We discussed that he may have additional benefit from repeat evaluation in the spine center to see if his cervical spine pathology has progressed any further. We also discussed that nerve conduction studies may be helpful to better isolate the cause of his hand numbness. He will return for follow up in [facility] team clinic after the MRI to review the findings. At this point he would prefer to focus on the shoulder, but if the MRI does not show any specific pathology he will consider further evaluation of the cervical spine and arm. If his rotator cuff is intact he may have better pain control with cortisone injection. The patient understands to contact us if they have any other questions or concerns. The above documentation was completed using [employer] voice recognition software. documented in this encounter Plan of Treatment Upcoming Encounters Date Type Department Care Team (Late st Contact Info) Description 12/15/2024 11:30 AM EDT Office [place] [address] Charline Ziegler MD [facility] [place] [address] documented as of this encounter Results * MRI shoulder WO contrast (09/17/2013 9:48 AM EST) Anatomical Region Laterality Modality Shoulder Magnetic Resonan ce 09/17/2013 9:48 AM EST Narrative 09/17/2013 11:41 AM EST Examination MR Shoulder WO/LEFT Clinical History left shoulder pain, previous rotator cuff repair, weakness on exam Comparison X-rays 09/13/2013. Technique MR images were acquired without contrast. Findings There is metal artifact projecting at the level of the acromion consistent with the patient's history of previous rotator cuff repair and subacromial decompression. ??No fracture is identified. ??The deltoid is intact. ??There is however still a prominent collection of osteophytes arising from the inferior margin of the acromioclavicular joint focally narrowing the rotator cuff outlet. Fluid is present within the subdeltoid bursa and there is there regular contour of the rotator cuff consistent with previous repair. ??Small focal areas of partial thickness tearing are seen at the articular surface of the cuff insertion. ??The most prominent areas immediately posterior to the rotator cuff interval where a tear extends posteriorly approximately 1 cm from the interval. ?? There is an additional smaller focus at the more posterior aspect of the cuff insertion. ??There is no associated muscular atrophy. Anteriorly, additional partial thickness tearing at the subscapularis insertion is associated with subluxation of the long head of the biceps tendon. ??The tendon is markedly enlarged proximally and contains increased signal intensity characteristic of severe tendinopathy. ??As the tendon enters the bicipital groove it narrows probably and diameter and there is a collection of cysts arising from the tendon itself. ??The appearance is consistent with partial tearing. At the glenohumeral joint no large effusion is identified. ??No displaced labral tear is identified. ??No focal defect in the articular cartilage is apparent. Impression ? 1. Metal artifact consistent with previous rotator cuff repair. ? 2. The rotator cuff outlet is narrowed by acromioclavicular joint arthropathy. ? 3. The rotator cuff is abnormal in appearance consistent with previous surgery and partial thickness undersurface tearing. ??There is no muscular atrophy. ? 4. The biceps tendon is markedly abnormal. ??Proximally, there is severe tendinopathy. ??There is subluxation as it enters the bicipital groove where a partial tear is associated with cyst formation. Procedure Note Dev Boss MD - 09/17/2013 Examination MR Shoulder WO/LEFT Clinical History left shoulder pain, previous rotator cuff repair, weakness on exam Comparison X-rays 09/13/2013. Technique MR images were acquired without contrast. Findings There is metal artifact projecting at the level of the acromion consistentwith the patient's history of previous rotator cuff repair and subacromial decompression. No fracture is identified. The deltoid is intact. Thereis however still a prominent collection of osteophytes arising from theinferior margin of the acromioclavicular joint focally narrowing the rotator cuff outlet. Fluid is present within the subdeltoid bursa and there is there regularcontour of the rotator cuff consistent with previous repair. Small focal areas of partial thickness tearing are seen at the articular surface of the cuff insertion. The most prominent areas immediately posterior to the rotatorcuff interval where a tear extends posteriorly approximately 1 cm from theinterval. There is an additional smaller focus at the more posterior aspect of thecuff insertion. There is no associated muscular atrophy. Anteriorly, additional partial thickness tearing at the subscapularisinsertion is associated with subluxation of the long head of the biceps tendon. The tendon is markedly enlarged proximally and contains increased signalintensity characteristic of severe tendinopathy. As the tendon enters the bicipital groove it narrows probably and diameter and there is a collection of cysts arising from the tendon itself. The appearance is consistent with partial tearing. At the glenohumeral joint no large effusion is identified. No displacedlabral tear is identified. No focal defect in the articular cartilage isapparent. Impression 1. Metal artifact consistent with previous rotator cuff repair. 2. The rotator cuff outlet is narrowed by acromioclavicular joint arthropathy. 3. The rotator cuff is abnormal in appearance consistent withprevious surgery and partial thickness undersurface tearing. There is no muscular atrophy. 4. The biceps tendon is markedly abnormal. Proximally, there issevere tendinopathy. There is subluxation as it enters the bicipital groovewhere a partial tear is associated with cyst formation. Roderick Perkins MD IMG MRI ORDERABLES documented in this encounter Visit Diagnoses Diagnosis Pain in left shoulder Pain in joint, shoulder region Bilateral shoulder pain Pain in joint, shoulder region Pain in left shoulder Pain in joint, shoulder region documented in this encounter Care Teams Inverter And Clipper Relationship Specialty Start Date End Date Reji Adams MD [facility] [address] [place] [address] PCP - General 02/12/12 06/27/15 documented as of this encounter
--- OUTSIDE RECORDS SUMMARY | 2024-07-09 11:19 | XMS_ITS | Encounter Summary ---
Author Organization [facility] Address [facility] [place] [address] Care Team Providers Care Business Applications Developer Name Role Phone Reji Adams MD Primary Care Provider [phone] Encounter Details Date Type Department Care Team (Latest Contact Info) Description 09/17/2013 8:46 AM EST - 09/17/2013 11:59 PM [facility] [place] [address] CLINIC, Roderick Jerez MD [facility] [place] [address] Pain in left shoulder Discharge Disposition: Home Social History Tobacco Use [...] 81 mg by mouth daily. 08/02/2014 Saw [place] 500 mg capsule Take 500 mg by mouth daily. 03/14/2020 Mavis Extract 500 mg Cap Take 1 capsule by mouth daily. 03/24/2017 naproxen sodium (ALEVE) 220 mg tablet Take 220 mg by mouth as needed. 01/04/2011 07/09/2017 documented as of this encounter Miscellaneous Notes * Miscellaneous - Provider, Scanning - 09/30/2013 12:36 PM EST documented in this encounter Plan of Treatment Upcoming Encounters Date Type Department Care Team (Late st Contact Info) Description 12/15/2024 11:30 AM EDT Office [place] [address] Charline Ziegler MD [facility] [place] [address] documented as of this encounter Procedures Procedure Name Priority Date/Time Associated Diagnosis Comments MRI SHOULDER WO CONTRAST Routine 09/17/2013 9:48 AM EST Pain in left shoulder documented in this encounter Results * MRI shoulder WO [...] tear is associated with cyst formation. Roderick Perkisn MD IMG MRI ORDERABLES documented in this encounter Visit Diagnoses Diagnosis Pain in left shoulder Pain in joint, shoulder region documented in this encounter Care Teams Business Applications Developer Relationship Specialty Start Date End Date Reji Adams MD [facility] [address] [address] PCP - General 02/12/12 06/27/15 documented as of this encounter
--- OUTSIDE RECORDS SUMMARY | 2024-07-09 11:19 | XMS_ITS | Encounter Summary ---
Author Organization [facility] Address [facility] [place] [address] Care Team Providers Care Health Practice Manager Name Role Phone Reji Adams MD Primary Care Provider [phone] Reason for Visit * Reason Comments Other low body temp/concer n, work up in night feeling hot, took temp 95.5 Encounter Details Date Type Department Care Team (Late st Contact Info) Description 05/23/2014 1:45 PM EDT Office Visit Internal Medicine at [place] [id number] Reji Adams MD [facility] GENERAL [place] [address] Body temperature low; Insomnia, unspecified Discharge Disposition: Home Social History Tobacco Use [...] Reading Time Taken Comments Blood Pressure 111/73 05/23/2014 2:51 PM EDT Pulse 72 05/23/2014 2:51 PM EDT Temperature 36.7 ??C (98.1 ??F) 05/23/2014 2:51 PM ED T Respiratory Rate - - Oxygen Saturation 97% 05/23/2014 2:51 PM EDT Inhaled Oxygen Concentration - - Weight 99.8 kg (220 lb) 05/23/2014 2:51 PM EDT Height 180.3 cm (5' 11) 05/23/2014 2:51 PM EDT Body Mass Index 30.68 05/23/2014 2:51 PM EDT documented in this encounter Progress Notes * Reji Adams MD - 05/23/2014 2:56 PM EDT ESTABLISHED PATIENT VISIT I. HISTORY a. Reason(s) for Visit: Ken Mckeon 68 y.o. male who presents today due to complaint(s) of: Chief Complaint Patient presents with ??? Other low body temp/concern, work up in night feeling hot, took temp 95.5 b. History of Present Illness:[] Pt states that over the weekend states felt hot at the time. Temp was 95.5 at that time in the middle of the night. States has woke up in the middle of the night when took the temperatures. Having a lot of insomnia. Wondering if could trial something. c. Review of Systems: Constitutional - no fevers, chills, weight loss or gain, + fatigue ongoing Cardiovascular - No CP, palpitations, angina, MARTIN, SOB Respiratory - No SOB, MARTIN, wheeze, cough, sputum production HEENT - No diffculty swallowing, hearing, No nasal congestion or postnasal drip Gastrointestinal - No abdominal pain, nausea, GERD, constipation, diarrhea, blood in stool Musculoskeletal - No weakness, pain at rest or with movement All other systems negative d. PMH Patient Active Problem List Diagnosis ??? Finger [...] beer per week II. PHYSICAL EXAM: BP 111/73 Pulse 72 Temp 36.7 ??C (98.1 ??F) (Oral) SpO2 97% General - No acute distress, conversing without difficulty. Eyes - EOMI. No scleral icterus Neck - No lymphadenopathy, supple, no masses Extremities - No clubbing, cyanosis or edema. III. ASSESSMENT/PLAN:Ken Mckeon 68 y.o. male presenting with insomnia and low body temp at night. Discussed that can be normal to have a lower body temp in the middle of the night. However, givenfatigue and constipation will check TFTs. Ken was seen today for other. Diagnoses and associated orders for this visit: Body temperature low - TSH; Future - T4, free; Future Insomnia, unspecified - Start traZODone (DESYREL) 50 mg Tablet; Take 0.5-1 tablets by mouth nightly. F/u prn Meds reconciled documented in this encounter Miscellaneous Notes * Addendum Note - Lakesha Nix LNA - 05/23/2014 3:19 PM EDTAddended by: LAKESHA NIX on: 05/23/2014 03:19 PM Modules accepted: Orders documented in this encounter Plan of Treatment Upcoming Encounters Date Type Department Care Team (Late st Contact Info) Description 12/15/2024 11:30 AM EDT Office [place] [address] [facility] [place] [address] documented as of this encounter Procedures Procedure Name Priority Date/Time Associated Diagnosis Comments TSH Routine 05/23/2014 4:23 PM EDT Body temperature low T4, FREE Routine 05/23/2014 4:23 PM EDT Body temperature low documented in this encounter Results * T4, free (05/23/2014 4:23 PM EDT) Free T4 1.09 0.90 - 1.60 ng/dL CERNER MILLENNIUM Blood specimen (specimen) 05/23/2014 4:23 PM EDT 05/23/2014 6:00 PM EDT Narrative Resulting Agency Comment Spec In Lab Reji Adams MD CHEMISTRY ORDERABLES Performing Organization Address [facility] Co de Phone Number CERBOB MILLENNIUM * TSH (05/23/2014 4:23 PM EDT) Thyroid Stimulating Hormone 1.51 0.27 - 4.20 mcIU/mL CERNER MILLENNIUM Blood specimen (specimen) 05/23/2014 4:23 PM EDT 05/23/2014 6:00 PM EDT Narrative Resulting Agency Comment Spec In Lab Reji Adams MD CHEMISTRY ORDERABLES Performing Organization Address [facility] Co de Phone Number CERBOB CHEUNGENNIUM documented in this encounter Visit Diagnoses Diagnosis Body temperature low Other general symptoms Insomnia, unspecified documented in this encounter Care Teams Health Practice Manager Relationship Specialty Start Date End Date Reji Adams MD [facility] [address] [address] PCP - General 02/12/12 06/27/15 documented as of this encounter
--- OUTSIDE RECORDS SUMMARY | 2024-07-09 11:19 | XMS_ITS | Encounter Summary ---
Author Organization [facility] Address [facility] [place] [address] Care Team Providers Care Retail Sales Lead Name Role Phone Reji Adams MD Primary Care Provider [phone] Reason for Visit * Reason Comments Left Hand Pain Encounter Details Date Type Department Care Team (Late st Contact Info) Description 03/04/2014 11:00 AM EDT Office [place] [address] Abbie Butcher PA [facility] [place] [address] Finger pain, left Discharge Disposition: Home Social History Tobacco [...] Sign Reading Time Taken Comments Blood Pressure 116/72 03/04/2014 11:26 AM EDT LE FT ARM Pulse 64 03/04/2014 11:26 AM EDT Temperature - - Respiratory Rate - - Oxygen Saturation - - Inhaled Oxygen Concentration - - Weight - - Height - - Body Mass Index - - documented in this encounter Progress Notes * Abbie Butcher PA - 03/04/2014 11:48 AM EDT PATIENT NAME: Ken Mckeon AGE: 68 y.o. MR#: [id number] DATE OF VISIT: 03/04/2014 DATE OF INJURY/ONSET: October 2013 STAFF: Dr. Lomeli CHIEF COMPLAINT: follow up for left long finger pain HISTORY OF PRESENT ILLNESS: Mr. Mckeon is a 68 y.o. year old male who comes into clinic today for follow up regarding the left long finger. He was given a flexor sheath cortisone injection approximately 4 weeks ago. He states that this helped some of his volar pain that extended into his palm, but hecontinued to have pain at the PIP and MCP joints. After the injection he developed hiccups which he attributes to being a side effect from the cortisone. He states the finger will lock up from timeto time, but this does not happen frequently. He describes his symptoms as more of a nuisance at this point as he is able to continue with active although uncomfortably at times. PHYSICAL EXAM: Mr. Mckeon is alert and oriented. He appears in no acute discomfort and is resting comfortably in the exam room. Inspection: No erythema, ecchymosis, or swelling involving the patient's left long finger. Palpation:Nontender to palpation over the A1 cheikh. He continues to have a click with full passiveflexion, but no tia locking. No palpable extensor tendon subluxation. MCP and PIP joints remain diffusely tender. ROM/Strength: FDS, FDP tendons are intact. He continues to have full finger range of motion with pain at end range flexion. Neurovascular: Sensation to light touch is intact with good distal perfusion RADIOLOGICAL STUDIES: No new studies, previous x-rays were reviewed ASSESSMENT: Resolving left long finger flexor tenosynovitis, early PIP and MCP arthritis PLAN: We discussed available treatment at this time. His flexor tendon symptoms did improve with the cortisone injection. At this point his symptoms are mild and he does not wish to pursue another cortisone injection. Since his not triggering it is difficult to say whether A1 cheikh release would be of benefit. While his x-rays did not show advance arthritic change, there were some subtle findings to suggest early arthritis at the PIP and MCP joints. Some of his symptoms may be coming from the early joint wear. His response to the cortisone injection would corollate with this as the flexor tendon injection would not address the intraarticular pathology. At this point I recommended symptomatic management as needed. If he develops recurrent flexor tenosynovitis or clear triggering at the [id number] then repeat injection versus consideration of surgery may be warranted. He will return for follow up as needed. The patient understands to contact us if they have any other questions or concerns. The above documentation was completed using [employer] voice recognition software. documented in this encounter Plan of Treatment Upcoming Encounters Date Type Department Care Team (Late st Contact Info) Description 12/15/2024 11:30 AM EDT Office [place] [address] Charline Ziegler MD [facility] [place] [address] documented as of this encounter Visit Diagnoses Diagnosis Finger pain, left Pain in limb documented in this encounter Care Teams Retail Sales Lead Relationship Specialty Start Date End Date Reji Adams MD [facility] GENERAL [place] [address] PCP - General 02/12/12 06/27/15 documented as of this encounter
--- OUTSIDE RECORDS SUMMARY | 2024-07-09 11:19 | XMS_ITS | Encounter Summary ---
Author Organization [facility] Address [facility] [place] [address] Care Team Providers Care Card Fixer Name Role Phone Reji Adams MD Primary Care Provider [phone] Reason for Visit * Reason Comments Bilateral Shoulder Pain S/P MRI on Encounter Details Date Type Department Care Team (Late st Contact Info) Description 09/28/2013 7:35 AM EST Office Visit [place] [address] Roderick Perkins MD [facility] [place] [address] Bilateral shoulder pain (Primary Dx) Discharge Disposition: Home Social [...] Sign Reading Time Taken Comments Blood Pressure 117/78 09/28/2013 8:06 AM EST Pulse 68 09/28/2013 8:06 AM EST Temperature - - Respiratory Rate - - Oxygen Saturation - - Inhaled Oxygen Concentration - - Weight 99.8 kg (220 lb) 09/28/2013 8:06 AM EST Height 180.3 cm (5' 11) 09/28/2013 8:06 AM EST Body Mass Index 30.68 09/28/2013 8:06 AM EST documented in this encounter Progress Notes * Abbie Butcher PA - 09/28/2013 10:30 AM EST PATIENT NAME: Ken Mckeon AGE: 67 y.o. MR#: [id number] DATE OF VISIT: 09/28/2013 DATE OF INJURY/ONSET: Chronic STAFF: Dr. Perkins CHIEF COMPLAINT: follow up for L>R shoulder pain HISTORY OF PRESENT ILLNESS: Mr. Mckeon is a 67 y.o. year old male who comes into clinic today for follow up regarding the bilateral shoulders. He returns after having an MRI of the left shoulder. His symptoms remain about the same. He has had previous surgery in both shoulders. He is having difficulty with daily activities and would like to be able to return to using his bow later this year. PHYSICAL EXAM: Mr. Mckeon is alert and oriented. He appears in no acute discomfort and is resting comfortably in the exam room. RADIOLOGICAL STUDIES: Per MRI report: 1. Metal artifact consistent with previous rotator cuff repair. 2. The rotator cuff outlet is narrowed by acromioclavicular joint arthropathy. 3. The rotator cuff is abnormal in appearance consistent with previous surgery and partial thickness undersurface tearing. There is no muscular atrophy. 4. The biceps tendon is markedly abnormal. Proximally, there is severe tendinopathy. There is subluxation as it enters the bicipital groove where a partial tear is associated with cyst formation I do not appreciate any significant metal artifact at the rotator cuff/ AC joint and he has not hadany previous metallic anchors or metal seen on previous x-rays. ASSESSMENT: Left shoulder rotator cuff tendinitis, AC joint arthropathy, severe biceps tendinopathy PLAN: I reviewed the MRI with the patient today. There is no evidence of full thickness rotator cuff tear. He does have some bursitis in addition to AC arthropathy with subacromial spurs. He also hasextensive biceps tendinopathy which is symptomatic. We discussed surgical and nonsurgical treatment. He may have improvement with a subacromial cortisone injection. We also discussed surgery to include arthroscopic debridement, subacromial decompression, biceps tenotomy and possible distal clavicleexcision. He would prefer to try an injection first before proceeding with repeat surgery. 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 He willcall to schedule this injection as needed. If he changes his mind about surgery he may return sooner for further discussion. The patient understands to contact us if they have any other questions or concerns. Twenty five minutes of this thirty minute appointment were spent reviewing the MRI and discussing treatment options. The above documentation was completed using Mogreet voice recognition software. documented in this encounter Plan of Treatment Upcoming Encounters Date Type Department Care Team (Late st Contact Info) Description 12/15/2024 11:30 AM EDT Office Visit [place] [address] Charline Ziegler MD [facility] [place] [address] documented as of this encounter Visit Diagnoses Diagnosis Bilateral shoulder pain- Primary Pain in joint, shoulder region documented in this encounter Care Teams Card Fixer Relationship Specialty Start Date End Date Reji Adams MD [facility] [place] [address] PCP - General 02/12/12 06/27/15 documented as of this encounter
--- OUTSIDE RECORDS SUMMARY | 2024-07-09 11:19 | XMS_ITS | Encounter Summary ---
Author Organization [place] [address] Care Team Providers Care Generator Rebuilder Name Role Phone Reji Adams MD Primary Care Provider [phone] Reason for Visit * Reason Onset Date Comments New Medication Request 02/14/2014 Encounter Details Date Type Department Care Team (Late st Contact Info) Description 02/14/2014 Telephone Internal Medicine at [address] [address] Dennys Lazaro New Medication Request Social History Tobacco Use [...] Telephone Encounter - Amrita Rodriguez RN - 02/15/2014 11:29 AM EDT TC to patient, informed that prescription was completed by Dr Richardson. documented in this encounter Plan of Treatment Upcoming Encounters Date Type Department Care Team (Late st Contact Info) Description 12/15/2024 11:30 AM EDT Office Visit [place] [address] Charline Ziegler MD [facility] [place] [address] documented as of this encounter Visit Diagnoses Not on filedocumented in this encounter Care Teams Generator Rebuilder Relationship Specialty Start Date End Date Reji Adams MD [facility] [place] [address] PCP - General 02/12/12 06/27/15 documented as of this encounter
--- OUTSIDE RECORDS SUMMARY | 2024-07-09 11:20 | XMS_ITS | Encounter Summary ---
Author Organization [facility] [place] [address] Care Team Providers Care Lard Renderer Name Role Phone Reji Newberry MD Primary Care Provider Reason for Visit * Reason Comments Other Encounter Details Date Type Department Care Team (Late st Contact Info) Description 01/12/2013 Telephone Internal Medicine at [address] [address] Reji Newberry MD [facility] GENERAL [place] [address] Social History Tobacco Use Types Packs/Day Years Used Date Smoking Tobacco: Never Smokeless Tobacco: Current Chew Comments:3 cans/ week Alcohol Use Standard Drinks/Week Comments Yes 1 (1 standard drink = 0.6 oz pur e alcohol) Sex and Gender Information Value Date Recorded Sex Assigned at Choose not to disclose 02/2023 8:26 AM EDT Gender Identity Not on file Sexual Orientation Choose not to disclose 2022 8:26 AM EDT documented as of this encounter Miscellaneous Notes * Telephone Encounter - Loulou Rivas - 01/12/2013 4:49 PM EDT PT CALLED BACK HE TOOK THE MESSAGE FROM DR. NEWBERRY AND CANCELLED THE APPOINTMENT FOR 01/14 * Telephone Encounter - Loulou Rivas - 01/12/2013 4:49 PM EDT Message copied by LOULOU RIVAS on FriJan 12, 2013 4:49 PM ------ Message from: REJI NEWBERRY Created: FriJan 11, 2013 7:26 PM Please call pt and ask if he feels he needs to be seen on 01/14. I do not feel the f/u is necessary unless he does because I already saw him on 12/17. Thanks documented in this encounter Plan of Treatment Upcoming Encounters Date Type Department Care Team (Late st Contact Info) Description 12/15/2024 11:30 AM EDT Office [place] [address] Charline Ziegler MD [facility] [place] [address] documented as of this encounter Visit Diagnoses Not on filedocumented in this encounter Care Teams Lard Renderer Relationship Specialty Start Date End Date Reji Newberry MD [facility] GENERAL [place] [address] PCP - General 02/12/12 06/27/15 documented as of this encounter
--- OUTSIDE RECORDS SUMMARY | 2024-07-09 11:20 | XMS_ITS | Encounter Summary ---
Author Organization [facility] Address [facility] [place] [address] Care Team Providers Care Dental Resident Name Role Phone Reji Adams MD Primary Care Provider [phone] Reason for Visit * Reason Comments Other finisihed meds, and symptoms are not gone Other frequent urination Other sometimes he feels l javi he has to urinate alot and he goes and not much there Fatigue does not sleep well though if he is able to sleep well, gets up very tired Stool Color Change stools very dark, it was with the clyndamiacin, but done on friday, still stool is dark Encounter Details Date Type Department Care Team (Late st Contact Info) Description 12/04/2012 10:45 AM EDT Follow-Up Internal Medicine at [place] [id number] Reji Adams MD [facility] GENERAL [place] [address] Frequent urination (Primary Dx); Prostatitis Discharge Disposition: Home Social History Tobacco Use [...] as of this encounter Progress Notes * Reji Adams MD - 12/04/2012 11:17 AM EDT ESTABLISHED PATIENT VISIT I. HISTORY a. Reason(s) for Visit: Ken Mckeon 67 y.o. male who presents today due to complaint(s) of: Chief Complaint Patient presents with ??? Other finisihed meds, and symptoms are not gone ??? Other frequent urination ??? Other sometimes he feels like he has to urinate alot and he goes and not much there ??? Fatigue does not sleep well though if he is able to sleep well, gets up very tired ??? Stool Color Change stools very dark, it was with the clyndamiacin, but done on friday, still stool is dark b. History of Present Illness:[] Pt presented on 11/16 for non-specific complaints of fatigue, some frequent urination (neg u/a), lack of appetite and was noted to be fairly sore to palpation LLQ. Was started on flaygl and cipro for ? diverticulitis but did not tolerate flagyl so switched to clindamycin. Planned to get colo if sxs did not improve. Pt returns today with ongoing sxs. No abd discomfort but will occasional get a sharp pain in RLQ that is very fleeting. Still having a lot of frequent urination. Will feel like has to go right away but only small amounts. Happens during the day but not having to get up at night. States unclear if improved when on cipro but did note that erections improved substantially. c. Review of Systems: Constitutional - no [...] negative d. H Patient Active Problem List Diagnoses ??? Cervical radiculopathy ??? Insomnia ??? Neck pain ??? Anxiety ??? Lightheadedness ??? Varicose veins of legs ??? OA (osteoarthritis) of knee right ??? Cataract extraction status of left eye ??? Status post total knee replacement TKR Right knee in 2007 Soc: History Substance Use Topics ??? Smoking status: Never Smoker ??? Smokeless tobacco: Current User Types: Chew Comment: 3 cans/ week ??? Alcohol Use: 0.6 oz/week 1 Cans of beer per week II. PHYSICAL EXAM: There were no vitals taken for this visit. General - No acute distress, conversing without difficulty. ENT - oropharynx without lesions. Eyes - EOMI. No scleral icterus Abdomen/GI - Soft, nontender, normal active bowel sounds, neg hsm or masses. Rectal - prostate smooth, mildly tender, no nodules noted. Not boggy. Extremities - No clubbing, cyanosis or edema. III. ASSESSMENT/PLAN:Ken Mckeon 67 y.o. male presenting with frequent urination with normal u/a. Unclear etiology but perhaps BPH however, interesting that erections improved on cipro. Pt alreadywith problems with orthostasis so would be difficult to treat with alpha blockade. Given duration of sxs ? If prostatitis (has hx of this) is playing a role. Will treat for 1 mth with cipro. If not resolution of sxs will pursue further workup. Recent PSA nl. Ken was seen today for other, other, other, fatigue and stool color change. Diagnoses and associated orders for this visit: Frequent urination - POCT urine dipstick; nl Prostatitis - ciprofloxacin (CIPRO) 250 mg tablet; Take 1 tablet by mouth 2 times daily for 28 days. Other Orders - clonAZEpam (KLONOPIN) 0.5 mg tablet; Take 1 tablet by mouth 2 times daily as needed for Anxiety. Meds reconciled documented in this encounter Plan of Treatment Upcoming Encounters Date Type Department Care Team (Late st Contact Info) Description 12/15/2024 11:30 AM EDT Office Visit Gastroenterology at [facility] [place] [address] Charline Ziegler MD [facility] [place] [address] documented as of this encounter Procedures Procedure Name Priority Date/Time Associated Diagnosis Comments POCT URINE DIPSTICK Routine 12/04/2012 1 1:15 AM EDT Frequent urination documented in this encounter Results * POCT urine dipstick (12/04/2012 11:15 AM EDT) POC Sp [place] 1.015 1.002 - 1.030 POC pH, UA [...] Blood, UA neg Negative - Negative denise/uL 12/04/2012 11:1 5 AM EDT Reji Adams MD POINT OF CARE TEST O RDERABLES documented in this encounter Visit Diagnoses Diagnosis Frequent urination- Primary Urinary frequency Prostatitis Prostatitis, unspecified documented in this encounter Care Teams Dental Resident Relationship Specialty Start Date End Date Reji Adams MD [facility] GENERAL [place] [address] PCP - General 02/12/12 06/27/15 documented as of this encounter
--- OUTSIDE RECORDS SUMMARY | 2024-07-09 11:20 | XMS_ITS | Encounter Summary ---
Author Organization [facility] Address [facility] [place] [address] Care Team Providers Care Supervisor Microfilm Duplicating Unit Name Role Phone Reji Adams MD Primary Care Provider [phone] Encounter Details Date Type Department Care Team (Late st Contact Info) Description 12/11/2012 8:00 AM EDT Office Visit Physical Therapy at [facility] [address] [place] [address] Kalli Stout, PT [facility] PHYSICAL MEDICINE & [place] [address] Reji Adams MD [facility] GENERAL [place] [address] Bilateral shoulder pain (Primary Dx) Discharge Disposition: [...] as of this encounter Progress Notes * Kalli Campos, PT - 12/11/2012 10:35 AM EDT [facility] // brief, PT eval and instruction in therapeutic exercise. DIAGNOSIS: 1. Bilateral shoulder pain DATE of injury: DOI: progressive over the last few years. Referring Physician: Dr. Frantz Perkins MD Medicare Certification Period: 12/11/2012 - 02.07.13 Total treatment time 25 minutes/total coded time 15 minutes. 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 has not used ice Patient is right hand dominant. O: This patient was seen in the Shoulder Clinic with the above diagnosis. PAIN: at best: 0/10; at worst: 7/10 Located: anterior; Describes pain as: aching and sharp POSTURE: rounded shoulders right side ROM: Flexion: 170 ABD: 150 ER:50 IR: 50 left side ROM Flexion: 150 ABD: 140 ER:40 IR: 60 scapulohumeral rhythm: slight diskinesia on the left FLEXIBILITY: + Posterior capsule tightness; + Anterior muscular tightness STRENGTH: R/C: 4+/5 biceps: 5/5 Deltoid: 5/5 Scap: 4/5 NEUROVASCULAR: intact SPECIAL TESTS: refer to MD note for more details A: Clinical exam is consistent with shoulder pain associated with bilat rotator cuff strain and impingement. Patient will benefit from strengthening, stabilization, home program, manual therapy including joint mobilizations of the shoulder to improve functional mobility. The patient was able to demonstrate correctly the home exercise program independently after proper instruction. The patient wasalso given a written home exercise program. Refer to scan doc in chart review for exercises issued to patient. P: follow up in physical therapy for strengthening, range of motion and stabilization REHAB POTENTIAL: GOOD for achieving below stated goals: SHORT TERM PT GOALS: (6.30.13) 1. improve posture and mechanics during lifting. 2. be indep with home exercise program. [facility] PT GOALS: (7.30.13) 1. The patient should be able to wash their hair and back without shoulder discomfort. 2. The patient should be able to lie on the involved side without shoulder pain. 3. The patient should be able to remove clothing overhead without shoulder pain. 4. Pain-free reaching, and lifting over shoulder level during ADL and work activities. documented in this encounter Plan of Treatment Upcoming Encounters Date Type Department Care Team (Late st Contact Info) Description 12/15/2024 11:30 AM EDT Office Visit [place] [address] Charline Ziegler MD [facility] [place] [address] documented as of this encounter Visit Diagnoses Diagnosis Bilateral shoulder pain- Primary Pain in joint, shoulder region documented in this encounter Care Teams Supervisor Microfilm Duplicating Unit Relationship Specialty Start Date End Date Reji Adams MD [facility] GENERAL [place] [address] PCP - General 02/12/12 06/27/15 documented as of this encounter
--- OUTSIDE RECORDS SUMMARY | 2024-07-09 11:20 | XMS_ITS | Encounter Summary ---
[place] [address] Care Team Providers Care Boarding House Manager Name Role Phone Reji Adams MD Primary Care Provider [phone] Reason for Visit * Reason Comments Neck Pain Encounter Details Date Type Department Care Team (Late st Contact Info) Description 09/09/2012 11:00 AM EST Office [place] [address] Rima Michaud, PT [facility] Neck pain (Primary Dx) Social History Tobacco [...] as of this encounter Progress Notes * Rima Michaud, PT - 09/09/2012 11:28 AM EST [facility] Physical Therapy Note Referring provider: Cyndi Valencia APRN Diagnosis: mechanical neck pain in the context of multilevel degenerative disc changes with foraminal narrowing at C3-C4 on the left Date of onset: February 2012 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 Mckeon reports his pain remains unchanged but the range of motion seems to be improving. He expresses frustration surround his ongoing pain and wonders whether other treatment options such as injections might be helpful. He would like to meet with a physician for further evaluation and treatment since his appointment with Cyndi Valencia APRN did not go well. Mr. Mckeon currently complains of neck pain radiating to bilateral shoulders with intermittent occipital headaches and radiation down the left anterior arm to the medial forearm and palm of the hand. The pain is rated 2/10 at its least and 6/10 at its worst. Symptoms worsen with sitting, lying on the left side, turning, lookin g down, looking up. Symptoms ease temporarily when taking Aleve or keeping the neck in midline. Objective: Mr. Mckeon returns today for a scheduled follow up appointment. He moves about in the examroom without difficulty when keeping the neck stiffly in midline at all times and appears comfortable while seated. Sitting posture is poor and standing posture is good. Active range of motion of thecervical spine is limited to 50?? flexion, 40?? extension, 50?? right rotation, 50?? left rotation,and 30?? bilateral side bending. Spurling maneuver to the right and left is neck active. Slouched sitting worsens the pain while sitting fully erect lessens the pain. Repeated movement testing of thecervical spine did not reveal a directional preference. In fact, the pain worsens at endrange and is no better nor worse at the conclusion of these maneuvers. Treatment Received: Discussed the natural history of neck pain in the context of spondylosis and the rational for exercise based treatment. Patient Education/ Home Exercise Program: Reviewed and modified Mr. Mckeon 's home exercise program. The home exercise program now includes cervical self snag into extension and bilateral rotation followed by bilateral side bending with overpressure 6-8 times per day until he reaches a plateau or therange of motion is full. He will then continue to stretch once daily to maintain his cervical rangeof motion. Assessment: Mr. Mckeon's range of motion has improved slightly but the pain remains unchanged. Goals: Able to perform the home exercise program independently. Able to sit without discomfort. Able to turn neck and look over the shoulder. Plan: Follow up as needed. I made arrangements for Mr. Mckeon to meet with his physician for further evaluation and treatment at his request. He was encouraged to call with any questions or concerns regarding todays visit or the home exercise program. Length of visit: A total of 20 minutes was spent re-assessing, treating, and instructing Ken Mckeon in a home exercise program. documented in this encounter Plan of Treatment Upcoming Encounters Date Type Department Care Team (Late st Contact Info) Description 12/15/2024 11:30 AM EDT Office [place] [address] Charline Ziegler MD [facility] [address] documented as of this encounter Visit Diagnoses Diagnosis Neck pain- Primary Cervicalgia documented in this encounter Care Teams Boarding House Manager Relationship Specialty Start Date End Date Reji Adams MD [facility] [place] [address] PCP - General 02/12/12 06/27/15 documented as of this encounter
--- OUTSIDE RECORDS SUMMARY | 2024-07-09 11:20 | XMS_ITS | Encounter Summary ---
Author Organization [facility] Address [facility] [place] [address] Care Team Providers Care [employer] Certified Internetwork Expert Name Role Phone Reji Adams MD Primary Care Provider [phone] Reason for Referral * Surgical (Routine) - Closed Specialty Diagnoses / Procedures Referred By Duglas t Referred To Contact Orthopaedic Surgery / Orthopaedics Diagnoses Neck pain Kory Arteaga MD [facility] [place] [address] Vick Andres MD [facility] [place] [address] Referral ID Status Reason Start Date Expiration Date V isits Requested Visits Authorized [id number] Closed Consult, Test & Treat 09/24/2012 03/23/2013 1 1 Reason for Visit * Reason Comments Other follow up to mri Encounter Details Date Type Department Care Team (Late st Contact Info) Description 09/24/2012 1:40 PM EST Office [place] [address] Kory Arteaga MD [facility] [place] [address] Neck pain (Primary Dx) Discharge Disposition: Home [...] as of this encounter Progress Notes * Kory Arteaga MD - 09/24/2012 2:11 PM EST Chief complaint: Neck and left arm pain Subjective: No change Objective: His MRI was reviewed with him and with Dr. Andres in the orthopedic spine surgery service. His quite severe narrowing at C3-4 and C4-5 this listhesis at the lower level and also at the subjacent level. Assessment: Thank you and the severity of his stenosis with the symptoms that he does have we have mutually decided to proceed with surgical consultation. Plan: Dr. Andres will see him later today to review his surgical options. This is a counseling based visit for 15 minutes describing in brief the potential surgical approaches. documented in this encounter Plan of Treatment Upcoming Encounters Date Type Department Care Team (Late st Contact Info) Description 12/15/2024 11:30 AM EDT Office Visit [place] [address] Charline Ziegler MD [facility] [place] [address] Scheduled Referrals Name Type Priority Associated Diagnoses Orde r Schedule Referral to Spine Center Outpatient Referral Routine Neck pain Ordered: 09/24/2012 documented as of this encounter Visit Diagnoses Diagnosis Neck pain- Primary Cervicalgia documented in this encounter Care Teams [employer] Certified Internetwork Expert Relationship Specialty Start Date End Date Reji Adams MD [facility] [place] [address] PCP - General 02/12/12 06/27/15 documented as of this encounter
--- OUTSIDE RECORDS SUMMARY | 2024-07-09 11:20 | XMS_ITS | Encounter Summary ---
Author Organization [facility] [place] [address] Care Team Providers Care Animal Control Supervisor Name Role Phone Reji Adams MD Primary Care Provider [phone] Reason for Visit * Reason Comments Annual Exam Encounter Details Date Type Department Care Team (Late st Contact Info) Description 09/01/2012 2:20 PM EST Office Visit Internal Medicine at [address] [address] Reji Adams MD [facility] [place] [address] Vaccine for streptococcus pneumoniae and influenza; Healthcare maintenance; SLOWING OF URINARY STREAM ; Neck pain; Varicose veins of legs; Insomnia Discharge Disposition: Home Social History Tobacco Use [...] Sign Reading Time Taken Comments Blood Pressure 100/64 09/01/2012 2:22 PM EST Pulse 69 09/01/2012 2:22 PM EST Temperature 37.2 ??C (98.9 ??F) 09/01/2012 2:22 PM ES T Respiratory Rate - - Oxygen Saturation 99% 09/01/2012 2:22 PM EST Inhaled Oxygen Concentration - - Weight 100.7 kg (222 lb) 09/01/2012 2:22 PM EST Height 179.1 cm (5' 10.5) 09/01/2012 2:22 PM ES T Body Mass Index 31.4 09/01/2012 2:22 PM EST documented in this encounter Progress Notes * Reji Adams MD - 09/01/2012 2:34 PM EST ANNUAL PHYSICAL I. HISTORY a. Reason(s) for Visit: Ken Mckeon is 66 y.o. male is here for chronic and acute medical problems and preventive medical care. b. History of Present Illness:Presents with the following concerns Neck pain: seen by spine on 08/24 who recommended PT and if no improvement then obtain MRI prior to consideration of injections. Did not click with the person he saw in the spine center. Went to PT this morning and states was informative. States exercise seemed to give it some relief. Varicose veins: s/p SV stripping in Nov. Doing fairly well. Has some behind his legs that need done. Anxiety: takes klonopin at night but never started wellbutrin. States does not like the klonopin and states does not like it. States did help him sleep. Wondering about a sleep medication. c. Review of Systems: Constitutional - no [...] Gastrointestinal - No abdominal pain, nausea, GERD, +constipation, diarrhea, blood in stool Genitourinary - no abnormal discharge, lumps, masses or nodules present Heme/Lymph - No bleeding, lymph node swelling, night sweats Musculoskeletal -SEE HPI All other systems negative d. PHx Patient Active Problem List Diagnoses ??? Neck pain ??? Anxiety ??? Lightheadedness [...] Father ??? Cancer Father testicular PREVENTION: DT: 2007 Pneumovax: due Zostavax: age 61 Flu: 05/08 Seat Belts: consistent Cholesterol (total/HDL/LDL): 10/06: 189/62/110 Colon cancer screenin years prior, per pt ???benign polyps?? HIV: negative in the past ASA age 45-79 Men and 55-79 women: on 81 mg daily AAA screening: non-smoker PSA: 10/06: 1.96 Hep C (born 3350-1843): Needs screening II. PHYSICAL EXAM: BP 100/64 Pulse 69 Temp 37.2 ??C (98.9 ??F) Ht 179.1 cm (5' 10.5) Wt 100.699 kg (222 lb) BMI 31.40 kg/m2 SpO2 99% General - No apparent distress. ENT - [...] Chest/Back - no spinal tenderness, no CVAT Rectal - prostate smooth, non-tender, no nodules noted. Neurological - Orientation - person, place and time. Cranial nerves intact. Strength - 5/5 upper and lower extremities. Sensation - light touch intact. III. MEDICAL DECISION MAKING: Assessment/Plan: Ken Mckeon is 66 y.o. male , here for acute and chronic medical conditions and preventative care. Ken was seen today for annual exam. Diagnoses and associated orders for this visit: Vaccine for streptococcus pneumoniae and influenza - PNEUMOCOCCAL 23 POLYVALENT VACCINE Healthcare maintenance - PSA; discussed and pt would like to have done - Hepatitis C Antibody; Future - Hiram next year - Cont to work on exercise Slowing of urinary stream - PSA; Neck pain - Cont to work with PT Varicose veins of legs Much improved Insomnia - Start traZODone (DESYREL) 50 mg tablet; Take 0.5-1 tablets by mouth nightly. - D/c Klonopin F/u prn documented in this encounter Plan of Treatment Upcoming Encounters Date Type Department Care Team (Late st Contact Info) Description 12/15/2024 11:30 AM EDT Office [place] [address] Charline Ziegler MD [facility] [place] [address] documented as of this encounter Procedures Procedure Name Priority Date/Time Associated Diagnosis Comments HEPATITIS C ANTIBODY Routine 09/01/2012 3:32 PM EST Healthcare maintenance PSA (ULTRASENSITIVE) Routine 09/01/2012 3:32 PM EST SLOWING OF URINARY STREAM Healthcare maintenance documented in this encounter Results * Hepatitis C Antibody (09/01/2012 3:32 PM EST) Hepatitis C Antibody Negative Negative [facility] Blood specimen (specimen) 09/01/2012 3:32 PM EST 09/01/2012 6:12 PM EST Narrative Resulting Agency Comment Spec In Lab Reji Adams MD CHEMISTRY ORDERABLES Performing Organization Address [facility] de Phone Number [facility] * PSA (09/01/2012 3:32 PM EST) Prostate Specific Antigen (Ultrasensitiv e) 1.96 0.00 - 4.00 ng/mL [facility] Blood specimen (specimen) 09/01/2012 3:32 PM EST 09/01/2012 6:12 PM EST Narrative Resulting Agency Comment Spec In Lab Reji Adams MD CHEMISTRY ORDERABLES Performing Organization Address [facility] Phone Number [facility] documented in this encounter Visit Diagnoses Diagnosis Vaccine for streptococcus pneumoniae and influenza Need for prophylactic vaccination against Streptococcus pneumoniae (pneumococcus) and influenza Healthcare maintenance Routine general medical examination at a health care facility SLOWING OF URINARY STREAM Slowing of urinary stream Neck pain Cervicalgia Varicose veins of legs Asymptomatic varicose veins Insomnia Insomnia, unspecified documented in this encounter Care Teams Animal Control Supervisor Relationship Specialty Start Date End Date Reji Adams MD [facility] [place] [address] PCP - General 02/12/12 06/27/15 documented as of this encounter
--- OUTSIDE RECORDS SUMMARY | 2024-07-09 11:20 | XMS_ITS | Encounter Summary ---
[place] [address] Care Team Providers Care Hospice Aide Name Role Phone Reji Adams MD Primary Care Provider [phone] Reason for Visit * Reason Comments Neck Pain Encounter Details Date Type Department Care Team (Late st Contact Info) Description 09/03/2012 10:30 AM EST Office [place] [address] Rima Michaud, PT [facility] Neck pain [...] Progress Notes * Rima Michaud, PT - 09/04/2012 8:58 AM EST [facility] Physical Therapy Note Referring provider: Cyndi Valencia APRN Diagnosis: mechanical neck pain in the context of multilevel degenerative disc changes with foraminal narrowing at C3-C4 on the left Date of onset: February 2012 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 Mckeon reports his pain it remains unchanged and the home exercise program has been going well. Mr. Mckeon currently complains of neck pain radiating to bilateral shoulders with intermittent occipital headaches and radiation down the left anterior on to the medial forearm and palm of the hand. The pain is rated 1/10 at its least and 6/10 at its worst. Symptoms worsen with sitting, lying on the left side, turning, looking down, looking up. Symptoms ease temporarily when [...] thecervical spine is limited to 50?? flexion, 30?? extension, 40?? right rotation, 45?? left rotation,and 20?? bilateral side bending. Spurling maneuver to the right and left is neck active. Slouched sitting worsens the pain while sitting fully erect lessens the pain. Repeated movement testing of thecervical spine once again did seem to suggest a directional preference toward extension. Treatment Received: Discussed the natural history of neck pain in the context of spondylosis and the rational for exercise based treatment. Patient Education/ Home Exercise Program: Reviewed and modified Mr. Mckeon 's home exercise program. The home exercise program now includes cervical self snag into extension and bilateral rotation followed by bilateral side bending with overpressure 6-8 times per day. Assessment: Mr. Mac range of motion has improved slightly but the pain remains unchanged. He is now ready to progress the forces. Goals: Able to perform the home exercise program independently. Able to sit without discomfort. Able to turn neck and look over the shoulder. Plan: Follow up in one week to reassess and progress the home exercise program. Mr. Mckeon was encouraged to call with any questions [...] 11:30 AM EDT Office Visit Gastroenterology at [place] [id number] Charline Ziegler MD [facility] [place] [address] documented as of this encounter Visit Diagnoses Diagnosis Neck pain- Primary Cervicalgia documented in this encounter Care Teams Hospice Aide Relationship Specialty Start Date End Date Reji Adams MD [facility] GENER[facility] [place] [address] PCP - General 02/12/12 06/27/15 documented as of this encounter
--- OUTSIDE RECORDS SUMMARY | 2024-07-09 11:20 | XMS_ITS | Encounter Summary ---
Author Organization [facility] [place] [address] Care Team Providers Care Bar Steward Name Role Phone Reji Adams MD Primary Care Provider [phone] Encounter Details Date Type Department Care Team (Late st Contact Info) Description 11/25/2012 Orders [place] [phone] Roderick Perkins MD [facility] [place] [address] Shoulder pain (Primary Dx) Social History Tobacco Use [...] 11:30 AM EDT Office [place] [phone] Charline Ziegler MD [facility] [place] [address] documented as of this encounter Visit Diagnoses Diagnosis Shoulder pain- Primary Pain in joint, shoulder region documented in this encounter Care Teams Bar Steward Relationship Specialty Start Date End Date Reji Adams MD [facility] GENER[facility] [place] [address] PCP - General 02/12/12 06/27/15 documented as of this encounter
--- OUTSIDE RECORDS SUMMARY | 2024-07-09 11:20 | XMS_ITS | Encounter Summary ---
Author Organization [facility] [place] [address] Care Team Providers Care Machine Heel Builder Name Role Phone Reji Adams MD Primary Care Provider [phone] Encounter Details Date Type Department Care Team (Late st Contact Info) Description 09/01/2013 Telephone Internal Medicine at [address] [address] Reji Adams MD [facility] [place] [address] Social History Tobacco Use Types Packs/Day Years [...] encounter Miscellaneous Notes * Telephone Encounter - Reji Adams MD - 09/01/2013 10:58 AM EST Called pt to discuss CT findings. 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 Given duration of sxs I feel infection is unlikely with IBD specifically crohn's being the most likely. Willneed colonoscopy for diagnosis. No answer. Left message for pt to return call. documented in this encounter Plan of Treatment Upcoming Encounters Date Type Department Care Team (Late st Contact Info) Description 12/15/2024 11:30 AM EDT Office Visit [place] [address] Charline Ziegler MD [facility] [place] [address] documented as of this encounter Visit Diagnoses Not on filedocumented in this encounter Care Teams Machine Heel Builder Relationship Specialty Start Date End Date Reji Adams MD [facility] [place] [address] PCP - General 02/12/12 06/27/15 documented as of this encounter
--- OUTSIDE RECORDS SUMMARY | 2024-07-09 11:20 | XMS_ITS | Encounter Summary ---
Author Organization [facility] Address [facility] [place] [address] Care Team Providers Care Pulley Man Name Role Phone Reji Adams MD Primary Care Provider [phone] Encounter Details Date Type Department Care Team (Latest Contact Info) Description 09/24/2012 10:05 AM EST - 09/24/2012 11:59 PM [facility] Hospital [place] [address] CLINIC, Kory Hoffmann MD [facility] [place] [address] Neck pain Discharge Disposition: Home Social History [...] tablet by mouth daily. aspirin 81 mg EC tablet Take 81 mg by mouth daily. 08/02/2014 CANO FLAVOR (CANO CONCENTRATE ORAL) Take 1 capsule by mouth daily. 11/16/2012 Saw [place] 500 mg capsule Take 500 mg by mouth daily. 03/14/2020 Mavis Extract 500 mg Cap Take 1 capsule by mouth daily. 03/24/2017 naproxen sodium (ALEVE) 220 mg tablet Take 220 mg by mouth as needed. 01/04/2011 07/09/2017 documented as of this encounter Miscellaneous Notes * Miscellaneous - Provider, Scanning - 10/19/2012 5:25 AM EDT documented in this encounter Plan of Treatment Upcoming Encounters Date Type Department Care Team (Late st Contact Info) Description 12/15/2024 11:30 AM EDT Office Visit [place] [address] Charline Ziegler MD [facility] [place] [address] documented as of this encounter Procedures Procedure Name Priority Date/Time Associated Diagnosis Comments MRI CERVICAL SPINE WO CONTRAST Routine 09/24/2012 10:55 AM EST Neck pain documented in this encounter Results * MRI cervical spine WO contrast (09/24/2012 10:55 AM EST) Anatomical Region Laterality Modality C-spine Magnetic Resonan ce 09/24/2012 10:5 5 AM EST Narrative 09/24/2012 11:59 AM EST Examination MR C spine WO Lenin Clinical History neck and left arm pain Comparison None Technique MRI of the cervical spine is performed without intravenous contrast. ?? Findings Mild anterolisthesis of C3 on C4, C4 on C5 and C5 on C6 is noted, these changes are most prominent at the level of C5-C6. Narrowing of the disc spaces of C7-T1 and C6-C7 is seen. No aggressive bone marrow lesions are seen. ??The craniovertebral junction is normal. Focal high signal in the spinal cord on the right is seen at the level of C3-C4 which may be related to myelomalacia. There are perineural cysts at multiple levels bilaterally. ?? C2-C3: No central canal or foraminal stenosis. Mild Uncovertebral and facet degenerative changes are seen. C3- C4: A disc osteophyte complex indents the spinal cord and causes severe central canal stenosis. Uncovertebral and facet degenerative changes cause mild right and moderate to severe left foraminal stenosis. ?? C4-C5: A disc osteophyte complex is indenting the ventral thecal sac and contacts, but does not distort the spinal cord and causes mild central canal stenosis. Uncovertebral and facet degenerative changes cause and moderate right and mild left foraminal stenosis. ?? C5- C6: A disc osteophyte complex is contacting the ventral subarachnoid space without causing any significant central canal stenosis. Uncovertebral and facet degenerative ?? changes cause mild bilateral foraminal stenosis. C6-C7: A disc osteophyte complex is contacting the ventral subarachnoid space without causing any significant central canal stenosis. Uncovertebral and facet degenerative ?? changes cause mild left foraminal stenosis. C7-T1:. A disc osteophyte complex is contacting the ventral subarachnoid space without causing any significant central canal stenosis. Uncovertebral and facet degenerative ?? changes cause mild left foraminal stenosis. Impression 1. Multilevel degenerative changes detailed as above. ?? 2. At the level of C3-C4 a disc osteophyte complex ??causes severe central canal stenosis. There is high signal noted in the spinal cord which may be related to myelomalacia. Film and interpretation reviewed by the attending Procedure Note Georgia Huitron MD - 09/24/2012 Examination MR C spine WO Lenin Clinical History neck and left arm pain Comparison None Technique MRI of the cervical spine is performed without intravenous contrast. Findings Mild anterolisthesis of C3 on C4, C4 on C5 and C5 on C6 is noted, thesechanges are most prominent at the level of C5-C6. Narrowing of the disc spaces ofC7-T1 and C6-C7 is seen. No aggressive bone marrow lesions are seen. The craniovertebral junction is normal. Focal high signal in the spinal cordon the right is seen at the level of C3-C4 which may be related to myelomalacia.There are perineural cysts at multiple levels bilaterally. C2-C3: No central canal or foraminal stenosis. Mild Uncovertebral andfacet degenerative changes are seen. C3- C4: A disc osteophyte complex indents the spinal cord and causessevere central canal stenosis. Uncovertebral and facet degenerative changes causemild right and moderate to severe left foraminal stenosis. C4-C5: A disc osteophyte complex is indenting the ventral thecal sac and contacts, but does not distort the spinal cord and causes mild centralcanal stenosis. Uncovertebral and facet degenerative changes cause and moderateright and mild left foraminal stenosis. C5- C6: A disc osteophyte complex is contacting the ventral subarachnoidspace without causing any significant central canal stenosis. Uncovertebral andfacet degenerative changes cause mild bilateral foraminal stenosis. C6-C7: A disc osteophyte complex is contacting the ventral subarachnoidspace without causing any significant central canal stenosis. Uncovertebral andfacet degenerative changes cause mild left foraminal stenosis. C7-T1:. A disc osteophyte complex is contacting the ventral subarachnoidspace without causing any significant central canal stenosis. Uncovertebral andfacet degenerative changes cause mild left foraminal stenosis. Impression 1. Multilevel degenerative changes detailed as above. 2. At the level of C3-C4 a disc osteophyte complex causes severe centralcanal stenosis. There is high signal noted in the spinal cord which may berelated to myelomalacia. Film and interpretation reviewed by the attending Kory Arteaga MD IMG MRI ORDERABLES documented in this encounter Visit Diagnoses Diagnosis Neck pain Cervicalgia documented in this encounter Care Teams Pulley Man Relationship Specialty Start Date End Date Reji Adams MD [facility] GENER[facility] [place] [address] PCP - General 02/12/12 06/27/15 documented as of this encounter
--- OUTSIDE RECORDS SUMMARY | 2024-07-09 11:20 | XMS_ITS | Encounter Summary ---
Author Organization [facility] Address [facility] [place] [address] Care Team Providers Care County Coroner Name Role Phone Reji Adams MD Primary Care Provider [phone] Reason for Referral * Physical Therapy (Routine) - Closed Specialty Diagnoses / Procedures Referred By Duglas arizmendi Referred To Contact Physical Therapy Diagnoses Back pain Reji Adams MD [facility] [place] [address] [facility] [place] [address] Referral ID Status Reason Start Date Expiration Date V isits Requested Visits Authorized [id number] Closed Evaluate and Treat 04/02/2013 09/29/2013 1 1 Reason for Visit * Reason Comments Spasms back, gone to work Encounter Details Date Type Department Care Team (Late st Contact Info) Description 04/02/2013 12:45 PM EDT Office [place] [address] Reji Adams MD [facility] [place] [address] Immunization due (Primary Dx); Back pain Discharge Disposition: Home Social History Tobacco [...] Sign Reading Time Taken Comments Blood Pressure 107/68 04/02/2013 12:56 PM EDT Pulse 72 04/02/2013 12:56 PM EDT Temperature 36.7 ??C (98.1 ??F) 04/02/2013 12:56 PM E DT Respiratory Rate - - Oxygen Saturation 98% 04/02/2013 12:56 PM EDT Inhaled Oxygen Concentration - - Weight 99.3 kg (219 lb) 04/02/2013 12:56 PM EDT Height 180.3 cm (5' 11) 04/02/2013 12:56 PM EDT Body Mass Index 30.54 04/02/2013 12:56 PM EDT documented in this encounter Progress Notes * Reji Adams MD - 04/02/2013 1:03 PM EDT ESTABLISHED PATIENT VISIT I. HISTORY a. Reason(s) for Visit: Ken Mckeon 67 y.o. male who presents today due to complaint(s) of: Chief Complaint Patient presents with ??? Spasms back, gone to work b. History of Present Illness:[] Pt states back has been bothering him off and on. When active in evening will get bad. R sides low back when working and doing things. Has been using NSAIDS without much relief. Never had PT for back. c. Review of Systems: Constitutional - no [...] PMH Patient Active Problem List Diagnosis ??? Depression ??? Bilateral shoulder pain ??? [...] beer per week II. PHYSICAL EXAM: BP 107/68 Pulse 72 Temp 36.7 ??C (98.1 ??F) (Oral) Ht 180.3 cm (5' 11) Wt 99.338 kg (219 lb) BMI 30.54 kg/m2 SpO2 98% General - No acute distress, conversing without difficulty. Eyes - EOMI. No scleral icterus Neck - No lymphadenopathy, supple, no masses Back - noted R sided paraspinal spasm and tenderness noted. No midline tenderness. Extremities - No clubbing, cyanosis or edema. III. ASSESSMENT/PLAN:Ken Mckeon 67 y.o. male presenting with MSK back pain. Ken was seen today for spasms. Diagnoses and associated orders for this visit: Immunization due - Tdap vaccine greater than or equal to 7yo IM; Future Back pain - Referral to Physical Therapy - cyclobenzaprine (FLEXERIL) 5 mg tablet; Take 1 tablet by mouth nightly as needed for Muscle spasms. - Ice/heat F/u prn Meds reconciled documented in this encounter Miscellaneous Notes * Addendum Note - Amrita Rodriguez RN - 04/02/2013 2:26 PM EDTAddended by: AMRITA RODRIGUEZ on: 04/02/2013 02:26 PM Modules accepted: Orders documented in this encounter Plan of Treatment Upcoming Encounters Date Type Department Care Team (Late st Contact Info) Description 12/15/2024 11:30 AM EDT Office [place] [address] Charline Ziegler MD [facility] [place] [address] Scheduled Referrals Name Type Priority Associated Diagnoses Orde r Schedule Referral to Physical Therapy Outpatient Referral Routine Back pain Ordered: 04/02/2013 documented as of this encounter Visit Diagnoses Diagnosis Immunization due- Primary Need for prophylactic vaccination and inoculation against unspecified single disease Back pain Backache, unspecified documented in this encounter Care Teams County Coroner Relationship Specialty Start Date End Date Reji Adams MD [facility] [place] [address] PCP - General 02/12/12 06/27/15 documented as of this encounter
--- OUTSIDE RECORDS SUMMARY | 2024-07-09 11:20 | XMS_ITS | Encounter Summary ---
Author Organization [facility] Address [facility] [place] [address] Care Team Providers Care Elevator Repairer Apprentice Name Role Phone Reji Adams MD Primary Care Provider [phone] Reason for Visit * Reason Comments Immunizations Encounter Details Date Type Department Care Team (Late st Contact Info) Description 04/12/2013 3:30 PM EDT Office [place] [address] NURSE, Reji Bliss MD [facility] [place] [address] Need for shingles vaccine (Primary Dx) Discharge Disposition: Home Social History [...] as of this encounter Progress Notes * Dorinda Hamilton, RN - 04/12/2013 5:59 PM EDT Mr Mckeon here for Shingles vaccine;given SQ left arm. He tolerated injection fine. documented in this encounter Plan of Treatment Upcoming Encounters Date Type Department Care Team (Late st Contact Info) Description 12/15/2024 11:30 AM EDT Office [place] [address] Charline Ziegler MD [facility] [place] [address] documented as of this encounter Visit Diagnoses Diagnosis Need for shingles vaccine- Primary Need for prophylactic vaccination and inoculation against other viral diseases documented in this encounter Care Teams Elevator Repairer Apprentice Relationship Specialty Start Date End Date Reji Adams MD [facility] [place] [address] PCP - General 02/12/12 06/27/15 documented as of this encounter
--- OUTSIDE RECORDS SUMMARY | 2024-07-09 11:20 | XMS_ITS | Encounter Summary ---
Author Organization [facility] Address [facility] [place] [address] Care Team Providers Care Protozoology Teacher Name Role Phone Reji Adams MD Primary Care Provider [phone] Encounter Details Date Type Department Care Team (Latest Contact Info) Description 12/29/2012 7:48 AM EDT - 12/29/2012 11:59 PM EDT [place] [address] Reji Adams MD [facility] GENER[place] [address] Fatigue Discharge Disposition: Home Social History Tobacco [...] tablet Take 1 tablet by mouth daily. clonAZEpam (KLONOPIN) 0.5 mg tablet Take 1 tablet by mouth 2 times daily as needed for Anxiety. 60 tablet 0 12/04/2012 04/02/2013 aspirin 81 mg EC tablet Take 81 mg by mouth daily. 08/02/2014 Saw Branch 500 mg capsule Take 500 mg by [...] AM EDT Office Visit Gastroenterology at [facility] [place] [place] [address] Charline Ziegler MD [facility] [place] [address] documented as of this encounter Procedures Procedure Name Priority Date/Time Associated Diagnosis Comments TESTOSTERONE, TOTAL Routine 12/29/2012 8 :01 AM EDT Fatigue documented in this encounter Results * Testosterone, total (12/29/2012 8:01 AM EDT) Testosterone 4.65 2.80 - 8.00 ng/mL [facility] Comment: Please note: Updated Reference Ranges 11/14/2010. Reference Ranges: ? Males (7to18 years) ?Females (8-18 years) Gianfranco Stage ?ng/ml ? ng/ml ? 1 ? <0.03 ? <0.03 to 0.06 ? 2 ? <0.03 to 4.32 ? <0.03 to 0.10 ? 3 ? 0.65 to 7.78 ?<0.03 to 0.24 ? 4 ? 1.80 to 7.63 ?<0.03 to 0.27 ? 5 ? 1.88 to 8.82 ?<0.05 to 0.38 ?Males 18 years to adult ? Females 18 years to adult ? 2.80 to 8.00 ng/ml ?0.06 to 0.82 ng/ml Stated adult reference ranges derived from review of Tung E170 Testosterone reagent package insert 11, V8 Stated pediatric reference ranges derived from review of Tung E170 Testosterone II reagent package insert 02/03, V2. Blood specimen (specimen) 12/29/2012 8:01 AM EDT 12/29/2012 8:08 AM EDT Narrative Resulting Agency Comment Spec In Lab Reji Adams MD CHEMISTRY ORDERABLES Performing Organization Address City/State/[facility] Co ms Phone Number [facility] documented in this encounter Visit Diagnoses Diagnosis Fatigue Other malaise and fatigue documented in this encounter Care Teams Protozoology Teacher Relationship Specialty Start Date End Date Reji Adams MD [facility] [place] [address] PCP - General 02/12/12 06/27/15 documented as of this encounter
--- OUTSIDE RECORDS SUMMARY | 2024-07-09 11:20 | XMS_ITS | Encounter Summary ---
Author Organization [facility] [place] [address] Care Team Providers Care Light Rail Signal Technician Name Role Phone Reji Adams MD Primary Care Provider [phone] Reason for Visit * Reason Comments Fatigue can't sleep, has had sore throat off and on, aches and pains Encounter Details Date Type Department Care Team (Late st Contact Info) Description 04/20/2013 7:45 AM EDT Office Visit Internal Medicine at [address] [address] Amrita Lozano MD [facility] GENERAL INTERNAL [address] [place] [address] Fatigue (Primary Dx); Sore throat; Urination frequency Discharge Disposition: Home Social History Tobacco Use [...] Sign Reading Time Taken Comments Blood Pressure 113/72 04/20/2013 8:00 AM EDT Pulse 75 04/20/2013 8:00 AM EDT Temperature 36.7 ??C (98 ??F) 04/20/2013 8:00 AM EDT Respiratory Rate - - Oxygen Saturation 99% 04/20/2013 8:00 AM EDT Inhaled Oxygen Concentration - - Weight 98 kg (216 lb) 04/20/2013 8:00 AM EDT Height 181 cm (5' 11.25) 04/20/2013 8:00 AM EDT Body Mass Index 29.91 04/20/2013 8:00 AM EDT documented in this encounter Progress Notes * Amrita Lozano MD - 04/20/2013 8:11 AM EDT ESTABLISHED PATIENT ACUTE VISIT Chief Complaint Patient presents with ??? Fatigue can't sleep, has had sore throat off and on, aches and pains Pt is a 67 y.o. 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 His moods are slightly off. Having sore throat, on And off for 4 days Aches and pains, 7/10 pain scale, old neck issue. Can't sleep, Due to his mind going. Taking flexeril didn't like the way he feels. PT did not help at all. Taking advil or aleve for his pain control. He is urinating more lately, concerned about an infection, had the shingles shot last week. No tickbites, goes in the [employer]. No fevers or chills, just fatigue, sore throat, urination. ROS: Constitutional - no fevers, chills, weight [...] Prescriptions on File Prior to Visit Medication Status Sig Dispense Refill ??? cyclobenzaprine (FLEXERIL) 5 mg tablet Active Take 1 tablet by mouth nightly as needed for Muscle spasms. 30 tablet 0 ??? aspirin 81 mg EC tablet Active Take 81 mg by mouth daily as needed. ??? multivitamin (THERAGRAN) tablet Active Take 1 tablet by mouth daily. ??? Saw Monclova 500 mg capsule Active Take 500 mg by mouth daily. ??? Mavis Extract 500 mg Cap Active Take 1 capsule by mouth daily. ??? naproxen sodium (ALEVE) 220 mg tablet Active Take 220 mg by mouth as needed. Patient Active Problem List Diagnosis Code ??? 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 Cataract extraction status of left eye V45.61 ??? OA (osteoarthritis) of knee 715.96 ??? Lightheadedness 780.4 ??? 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 Anxiety 300.00 ??? Neck pain 723.1 ??? Insomnia 780.52 ??? Cervical radiculopathy 723.4 ??? Bilateral shoulder pain 719.41 ??? Depression 311 ??? Back pain 724.5 Physical Exam: Filed Vitals: 04/20/13 0800 BP: 113/72 Pulse: 75 Temp: 36.7 ??C (98 ??F) TempSrc: Oral Height: 181 cm (5' 11.25) Weight: 97.977 kg (216 lb) SpO2: 99% General - No acute distress. ENT - Mouth without lesions. Eyes- EOMI. Not jaundiced. Noninjected Neck - No lymphadenopathy. No thyromegaly Lungs - Clear to auscultation. Heart - RRR, S1,S2, no audible murmur, gallop or rub. Abdomen/GI - Soft, nontender, normal active bowel sounds, neg hsm or masses. Extremities - No clubbing, cyanosis or edema. Pulses intact. Assessment and Plan: Ken was seen today for fatigue. Diagnoses and associated orders for this visit: Fatigue This appears multifactorial in nature with pain, not liking his job, low level moods, not sleeping well. He did not want to fill out ph Q9 , but + for ph Q2- he has tried meds in the past and not interested in these. He is more worried about an infection and will check some basic labs for him. - CBC (with Diff); Future - POCT urine dipstick - Glucose, random; Future Sore throat - CBC (with Diff); Future - POCT urine dipstick - Glucose, random; Future Urination frequency Urine dip today. Discussed foods , drinks, training and prostate could be involved. documented in this encounter Plan of Treatment Upcoming Encounters Date Type Department Care Team (Late st Contact Info) Description 12/15/2024 11:30 AM EDT Office Visit Gastroenterology at [facility] [address] Charline Ziegler MD [facility] [place] [address] documented as of this encounter Procedures Procedure Name Priority Date/Time Associated Diagnosis Comments POCT URINE DIPSTICK Routine 04/20/2013 8 :45 AM EDT Fatigue Sore throat DIFFERENTIAL, AUTOMATED Routine 04/20/2013 8:43 AM EDT CBC (WITH DIFF) Routine 04/20/2013 8:43 AM EDT Fatigue Sore throat GLUCOSE Routine 04/20/2013 8:43 AM EDT Fatigue Sore throat documented in this encounter Results * (ABNORMAL) POCT urine dipstick (04/20/2013 8:45 AM EDT) POC Sp [place] 1.020 1.002 - 1.030 POC pH, UA [...] Blood, UA trace Negative - Negative denise/uL 04/20/2013 8:45 AM EDT Amrita Lozano MD POINT OF CARE SACHA T ORDERABLES * Differential, Automated (04/20/2013 8:43 AM EDT) Neutrophil % 50.7 34.0 - 71.0 % CERNER MILLENNIUM Neutrophil Absolute 2.83 1.50 - 6.30 x10(3)/mcL CERNER MILLENNIUM Lymph % 39.0 19.0 - 53.0 % CERNER MILLENNIUM Lymphocytes Abs 2.2 1.0 - 3.6 x10(3)/mcL CERNER MILLENNIUM Monocyte % 6.4 4.0 - 13.0 % CERNER MILLENNIUM Monocyte Abs 0.4 0.2 - 1.0 x10(3)/mcL CERNER MILLENNIUM Eos % 3.2 0.0 - 7.0 % CERNER MILLENNIUM Eosinophils Abs 0.2 0.0 - 0.5 x10(3)/mcL CERNER MILLENNIUM Basophil % 0.5 0.0 - 2.0 % CERNER MILLENNIUM Baso Absolute 0.0 0.0 - 0.2 x10(3)/mcL CERNER MILLENNIUM Immature Gran % 0.20 0.00 - 0.66 % CERNER MILLENNIUM Comment: Immature granulocytes(IG's)percentage and absolute count will include metamyelocytes, myelocytes, and promyelocytes. Blood smears from CBCs yielding IG's will be scanned manually for concordance. If this scan disagrees with the automated IG or if promyelocytes are noted, a manual differential will be performed. Immature Gran Absolute 0.01 0.00 - 0.05 x10(3)/mcL CERNER MILLENNIUM Blood specimen (specimen) 04/20/2013 8:43 AM EDT 04/20/2013 12:29 PM EDT Amrita Lozano MD HEMATOLOGY ORDERA BLES CERNER JONATANENNIUM * Glucose, random (04/20/2013 8:43 AM EDT) Glucose 74 60 - 199 mg/dL CERNER MILLENNIUM Comment:Diabetes: >=200 mg/d L plus symptoms Blood specimen (specimen) 04/20/2013 8:43 AM EDT 04/20/2013 12:29 PM EDT Narrative Resulting Agency Comment Spec In Lab Amrita Lozano MD CHEMISTRY ORDERAB LES Performing Organization Address City/[facility]/ZIP Co de Phone Number [facility] [place] * CBC (with Diff) (04/20/2013 8:43 AM EDT) White Blood Cell 5.6 4.0 - 10.0 x10(3)/mcL CERNER MILLENNIUM Red Blood Cell 5.20 4.63 - 6.08 x10(6)/mcL CERNER MILLENNIUM Hemoglobin 15.6 13.7 - 17.5 gm/dL CERNER MILLENNIUM Hematocrit 46.0 40.0 - 51.0 % CERNER MILLENNIUM Mean Cell Volume 88.5 79.0 - 92.0 fL CERNER MILLENNIUM Mean Cell Hemoglobin 30.0 25.6 - 32.2 pg CERNER MILLENNIUM Mean Cell Hemoglobin Concentration 33.9 32.0 - 36.5 gm/dL CERNER MILLENNIUM Platelet 187 145 - 370 x10(3)/mcL CERNER MILLENNIUM RDW Standard Deviation 44.5 35.0 - 46.0 fL CERNER MILLENNIUM RDW coefficient of variation 13.8 10.9 - 14.4 % CERNER MILLENNIUM Mean Platelet Volume 10.2 9.0 - 12.0 fL CERNER MILLENNIUM Blood specimen (specimen) 04/20/2013 8:43 AM EDT 04/20/2013 12:29 PM EDT Narrative Resulting Agency Comment Spec In Lab Amrita Lozano MD HEMATOLOGY ORDERA BLES Performing Organization Address City/[facility]/ZIP Co de Phone Number [facility] [place] documented in this encounter Visit Diagnoses Diagnosis Fatigue- Primary Other malaise and fatigue Sore throat Acute pharyngitis Urination frequency Urinary frequency documented in this encounter Care Teams Light Rail Signal Technician Relationship Specialty Start Date End Date Reji Adams MD [facility] [place] [address] PCP - General 02/12/12 06/27/15 documented as of this encounter
--- OUTSIDE RECORDS SUMMARY | 2024-07-09 11:20 | XMS_ITS | Encounter Summary ---
[place] [address] Care Team Providers Care Assistant Manager Bilingual Name Role Phone Reji Adams MD Primary Care Provider [phone] Reason for Visit * Reason Comments Neck Pain radiates down left a rm Encounter Details Date Type Department Care Team (Late st Contact Info) Description 09/23/2012 8:40 AM EST Office [place] [address] Kory Arteaga MD [facility] [place] [address] Neck pain (Primary Dx) Discharge Disposition: Home [...] - - Weight 102.1 kg (225 lb) 09/23/2012 8:38 AM EST Height 180.3 cm (5' 11) 09/23/2012 8:38 AM EST Body Mass Index 31.38 09/23/2012 8:38 AM EST documented in this encounter Progress Notes * Kory Arteaga MD - 09/23/2012 9:08 AM EST Chief complaint: Neck and left upper extremity pain Subjective: The details of his chief complaint have been carefully recorded in his electronic medical record. In short, about a year ago without injury or incident he began having neck pain which hasprogressed in the past 4-5 months to include pain radiating through the biceps, forearm and palm ofthe hand. He's not had true power or sensory loss. 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 So plain set of x-rays showing multilevel degenerative spondylosis. He describes a sedentary to light activity lifestyle he much by preference but he anticipates being able to do desired fishing and kayaking, spring because of his chief complaint. Important related history includes bilateral carpal tunnel releases and he recalls that the symptoms that he had requiring no surgeries were very different from that moreaching sensation that he has and this palm associated with his neck pain. Objective: His affect is bright. He maintains a face forward posture throughout the interview. There is no evident spinal deformity. Cervical range of motion is blocked in both side flexions in mid range but a sense of stiffness and we are not really able to perform a fall Spurling's maneuver to the left. At any rate no end range reproduces his upper extremity symptoms. Glenohumeral ranges of motion are full and pain-free. His touch sensation is intact in the upper extremities and is power screens done well. His reflexes however are symmetrical in that both his brachial radialis and biceps are diminished on the left compared to the right. His carpal tunnel scars are noted. Tinel's are negative at the wrist. His plain x-ray images have been reviewed. Assessment: This may very well be a radicular syndrome in addition to his neck pain, and he has notresponded to chiropractic or physical therapy, and so we have discussed the options of temporizing,medication trial, imaging for consideration of either injections or surgery depending on his findings. After discussing all this for 25 of the 40 minute visit we've mutually decided to proceed as follows. Plan: Cervical spine MRI and return to review these images with treatment options as above. documented in this encounter Plan of Treatment Upcoming Encounters Date Type Department Care Team (Late st Contact Info) Description 12/15/2024 11:30 AM EDT Office Visit Gastroenterology at [facility] [place] [address] Charline Ziegler MD [facility] [place] [address] documented as of this encounter Results * MRI cervical spine [...] Visit Diagnoses Diagnosis Neck pain- Primary Cervicalgia Neck pain Cervicalgia documented in this encounter Care Teams Assistant Manager Bilingual Relationship Specialty Start Date End Date Reji Adams MD [facility] [place] [address] PCP - General 02/12/12 06/27/15 documented as of this encounter
--- OUTSIDE RECORDS SUMMARY | 2024-07-09 11:20 | XMS_ITS | Encounter Summary ---
Author Organization [facility] Address [facility] [place] [address] Care Team Providers Care Gum Cook Name Role Phone Reji Adams MD Primary Care Provider [phone] Reason for Visit * Reason Comments Abdominal Pain Sharp quick pains in lower right abdomen Encounter Details Date Type Department Care Team (Late st Contact Info) Description 05/05/2013 11:30 AM EDT Office Visit Internal Medicine at [address] [address] Bernie Min PA [facility] [place] [address] Right inguinal hernia (Primary Dx) Discharge Disposition: Home Social History [...] Reading Time Taken Comments Blood Pressure 108/75 05/05/2013 11:29 AM EDT Pulse 78 05/05/2013 11:29 AM EDT Temperature 36.1 ??C (96.9 ??F) 05/05/2013 11:29 AM E DT Respiratory Rate - - Oxygen Saturation 95% 05/05/2013 11:29 AM EDT Inhaled Oxygen Concentration - - Weight 97.5 kg (215 lb) 05/05/2013 11:29 AM EDT Height 180.3 cm (5' 11) 05/05/2013 11:29 AM EDT reported Body Mass Index 29.99 05/05/2013 11:29 AM EDT documented in this encounter Progress Notes * Bernie Min PA - 05/05/2013 11:35 AM EDT ESTABLISHED PATIENT ACUTE VISIT Chief Complaint Patient presents with ??? Abdominal Pain Sharp quick pains in lower right abdomen Pt is a 67 y.o. male who presents for acute visit with intermittent spasmlike pain in right groin. Very similar to hernia before surgery. Had right inguinal hernia repair surgery about 5 years ago in [place] with Dr. Smith. Does radiate into right testicle. Pain can stay and ache for a while (never more than one hour), intensity comes and goes with movement. Other times it is a quick flash and then gone. Has been going on for 7-10 days. Is very active. Was doing some housework, up and down stairs, no raking. Currently unemployed; gave notice recently. Has not detected a bulge. Digestion is pretty good. Moving bowels ok. Appetite ok. Sleeping ok. Energy is declining and still slightly depressed. ROS: Constitutional - no fevers, chills, weight [...] difficulty urinating, incontinence or dysuria. Musculoskeletal - See HPI. Skin - no new rashes All other systems negative Current Outpatient Prescriptions on File Prior to Visit Medication Sig Dispense Refill ??? aspirin 81 mg EC tablet Take 81 mg by mouth daily as needed. ??? multivitamin (THERAGRAN) tablet Take 1 tablet by mouth daily. ??? Saw [place] 500 mg capsule Take 500 mg by mouth daily. ??? Mavis Extract 500 mg Cap Take 1 capsule by mouth daily. ??? naproxen sodium (ALEVE) 220 mg tablet Take 220 mg by mouth as needed. ??? [DISCONTINUED] cyclobenzaprine (FLEXERIL) 5 mg tablet Take 1 tablet by mouth nightly as needed for Muscle spasms. 30 tablet 0 Patient Active Problem List Diagnosis Code ??? [...] Back pain 724.5 Physical Exam: Filed Vitals: 05/05/13 1129 BP: 108/75 Pulse: 78 Temp: 36.1 ??C (96.9 ??F) TempSrc: Oral Height: 180.3 cm (5' 11) Weight: 97.523 kg (215 lb) SpO2: 95% General - No acute distress. - Normal male external genitalia. Circumcised penis. No inguinal bulges, no hernias noted bilaterally. Assessment and Plan: Ken was seen today for abdominal pain. Right inguinal pain, rule out hernia - US abdomen complete; scheduled for tomorrow. Follow up pending results. documented in this encounter Plan of Treatment Upcoming Encounters Date Type Department Care Team (Late st Contact Info) Description 12/15/2024 11:30 AM EDT Office Visit [place] [address] Charline Ziegler MD [facility] [place] [address] documented as of this encounter Visit Diagnoses Diagnosis Right inguinal hernia- Primary Inguinal hernia without mention of obstruction or gangrene, unilateral or unspecified, (not specified as recurrent) documented in this encounter Care Teams Gum Cook Relationship Specialty Start Date End Date Reji Adams MD [facility] [place] [address] PCP - General 02/12/12 06/27/15 documented as of this encounter
--- OUTSIDE RECORDS SUMMARY | 2024-07-09 11:20 | XMS_ITS | Encounter Summary ---
Author Organization [facility] Address [facility] [place] [address] Care Team Providers Care Kennel Attendant Name Role Phone Reji Adams MD Primary Care Provider [phone] Reason for Visit * Reason Comments Neck And Arm Pain Encounter Details Date Type Department Care Team (Latest Contact Info) Description 09/24/2012 2:05 PM EST Office [place] [address] Vick Andres MD [facility] [place] [address] Cervical radiculopathy (Primary Dx) Discharge Disposition: Home Social History [...] as of this encounter Progress Notes * Vick Andres MD - 09/24/2012 2:33 PM EST CHIEF COMPLAINT: Left upper extremity pain greater than neck pain. HISTORY OF PRESENT ILLNESS: Mr. Mckeon is a 66-year-old right-hand dominant male I am seeing in consultation for Dr. Arteaga with regards to left upper extremity pain and neck pain. He has had neck pain for the past one or two years that he has been able to tolerate. Over the past two or three months, he developed pain that radiates to his left anterior arm and forearm to the palm of his hand. He does not get any pain or consistent numbness in his fingers. He notes he occasionally feels that the hand has fallen asleep and is numb at night. He denies any weakness. His pain gets worse with neck extension and rotation and improves with neck flexion. He denies any change in his gait or fine motor skills. 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 He denies constitutional symptoms or change in his bowel or bladder function. He has been treated with Aleve that helped some. He saw a chiropractor once and did not get much relief from this. He has done physical therapy with no help. He has not had any injections or prior spine surgery. PAST MEDICAL HISTORY: None. PAST SURGICAL HISTORY: Right knee surgeries, left lower extremity vein stripping, bilateral carpal tunnel release, bilateral shoulder surgery, L4-L5 fusion and a lumbar decompression on a level that he is not sure. MEDICATIONS: Reviewed and are in eD-H. ALLERGIES: REVIEWED AND ARE IN ED-H. FAMILY HISTORY: Diabetes, cancer, heart disease, and stroke. SOCIAL HISTORY: The patient is retired. He chews tobacco and occasionally drinks. REVIEW OF SYSTEMS: All negative except musculoskeletal as above. PHYSICAL EXAMINATION: The patient is 5 feet 11 inches, 225 pounds. General: The patient is comfortable, in no acute distress. Neck: His neck is nontender to palpation. He can flex 50 degrees, extend 30 degrees, rotate 40 degrees, and side bend 20 degrees. Neurologic Exam: He walks with a normal gait. He was able to perform tandem gait without difficulty. Motor exam reveals 5/5 strength in all upper extremity motor groups. He has normal sensory exam. Reflexes are 2/4 throughout the upper extremities, 2/4 at the knees, 1/4 at the ankles. Spurling's, Randy's, clonus, and Babinski are all negative. Shoulder Exam: He has normal, painless range of motion of both shoulders. Vascular Exam: He has palpable pulses bilaterally. IMAGING: MRI of the cervical spine from 09/24/2012 demonstrates cervical spondylosis throughout the cervical spine. At C3-C4, he has a broad-based disk bulge with mild anterolisthesis of C3 on C4 and he has a broad-based disk osteophyte complex as well as uncovertebral hypertrophy that causes moderate central canal and foraminal stenosis as well as some cord compression. At C4-C5, he has low-grade anterolisthesis as well as some cord flattening and left greater than right foraminal stenosis. At C5-C6, there is more significant anterolisthesis with minimal central stenosis, but there is left greater than right foraminal stenosis. At C6-C7, he has spondylosis, but no significant neural compression. ASSESSMENT/PLAN: Mr. Mckeon is a 66-year-old male who has axial neck pain and possibly C5 or C6 radiculopathy in the setting of cervical spondylosis from C3 through C6 with cord compression from C3 through C5 with signal change of the cord at C3-C4. Despite his imaging, he really has no myelopathic signs or symptoms. I discussed his treatment options for axial neck pain and radicular pain that include anti-inflammatory medication, physical therapy, medial branch blocks or cervical epidural steroid injections, and potentially surgery if the radicular pain becomes severe. Given that he has no myelopathic signs or symptoms, I do not think he has an absolute indication for surgery. I told him if he were to develop fine motor dysfunction or gait problems, he should call us and we can evaluate him further. If he is to come back to see us, we should obtain flexion and extension x-rays prior to the visit. He is generally unenthusiastic about having surgery. Surgery in his case would most require a three level anterior procedure from C4 through C6. I will follow up with him on a p.r.n. basis. documented in this encounter Plan of Treatment Upcoming Encounters Date Type Department Care Team (Late st Contact Info) Description 12/15/2024 11:30 AM EDT Office [place] [address] Charline Ziegler MD [facility] [place] [address] documented as of this encounter Visit Diagnoses Diagnosis Cervical radiculopathy- Primary Brachial neuritis or radiculitis nos documented in this encounter Care Teams Kennel Attendant Relationship Specialty Start Date End Date Reji Adams MD [facility] [place] [address] PCP - General 02/12/12 06/27/15 documented as of this encounter
--- OUTSIDE RECORDS SUMMARY | 2024-07-09 11:20 | XMS_ITS | Encounter Summary ---
Author Organization [facility] Address [facility] Ximena palmer [place] [id number] Care Team Providers Care Corporate Fitness Program Coordinator Name Role Phone Reji Newberry MD Primary Care Provider [phone] Reason for Referral * Consultation (Urgent) - Closed Specialty Diagnoses / Procedures Referred By Duglas arizmendi Referred To Contact Gastroenterology Diagnoses Ileitis Reji Newberry MD [facility] [place] [address] Wesley Willis MD [facility] [place] [address] Referral ID Status Reason Start Date Expiration Date V isits Requested Visits Authorized [id number] Closed Consult, Test & Treat 09/01/2013 02/28/2014 1 1 Reason for Visit * Reason Comments Other Encounter Details Date Type Department Care Team (Late st Contact Info) Description 09/01/2013 Telephone [place] [address] Reji Newberry MD [facility] [place] [address] Social History Tobacco Use Types Packs/Day Years [...] * Telephone Encounter - Loulou Rivas - 09/01/2013 3:51 PM EST GOT PT'S PAPERWORK SCANNED AND CALLED [facility] THEY WILL CALL PATIENT. * Telephone Encounter - Reji Newberry MD - 09/01/2013 1:45 PM EST Pt returned call. See previous note for details of CT findings. Discussed potential for crohn's vs infection vs potential for other causes. -Move up [facility] -testicular u/s for L testicle calcifications. documented in this encounter Plan of Treatment Upcoming Encounters Date Type Department Care Team (Late st Contact Info) Description 12/15/2024 11:30 AM EDT Office Visit [place] [address] Charline Ziegler MD [facility] [place] [address] Scheduled Referrals Name Type Priority Associated Diagnoses Order Schedule Referral to Gastroenterology Outpatient Referral Routine Ileitis Ordered: 09/01/2013 documented as of this encounter Results * US scrotum (09/02/2013 4:14 PM EST) Anatomical Region Laterality Modality Pelvis Ultrasound 09/02/2013 4:14 PM EST Narrative 09/02/2013 4:42 PM EST ?Scrotal ? (Signed Final 09/02/2013 04:41 pm) Patient Info ID: ? [id number] ? : ??[birth year] (67 yrs) Name: ? KEN COLE ?Visit Date: 09/02/2013 04:10 pm Performed By Performed By: ?Amee GRIMM, David Associate: ? Akiko CHAVEZ, Kaylyn Attending: ? Mariella CHAVEZ, Silvia JYas Referred By: ? REJI NEWBERRY MD Service(s) Provided [facility] - Ultrasound Scrotum and Contents with ?[id number], [id number] Vascular - [id number], [id number] Indications calcifications seen on CT. Further characterization needed Right Testicle Measurement(cm) ? L: ??5.2 ?AP: ?? 2.8 ? TV: ??3.6 Vol (ml): ?27.4 Vascularity: ?Normal vascularity Comment: ?Single punctate calcification within the testicle Right Epididymis Head: ?Epididymal cysts, largest measuring ??1.3 cm Body: ?Normal Tail: ?Normal Right Other Hydrocele: ? Moderate Varicocele: ?Not visualized Left Testicle Measurement(cm) ? L: ??5.2 ?AP: ?? 3.1 ? TV: ??4 Vol (ml): ?33.8 Vascularity: ?Normal vascularity Comment: ?Single calcification within testicle Left Epididymis Head: ?Multiple epididymal cysts, largest measuring ??3.4 ?cm Body: ?Normal Tail: ?Normal Left Other Hydrocele: ? Moderate Varicocele: ?Not visualized Impression Ultrasound - Testicular - Summary 1. Multiple bilateral epididymal head cysts, the largest of which measures 1.3 cm on the right and 3.4 cm on the left. 2. Moderate sized bilateral hydrocoeles. 3. Dilated left rete testes. 4. Punctate calcifications in the bilateral testes. This is of doubtful clinical signifignance in a person of this age. No intratesticular mass lesions identified. I ??viewed the images and agree with the above interpretation. Thank you for allowing us to participate in the care of KEN COLE. Please do not hesitate to call if you have any questions. ?Slivia Wolff MD Electronically Signed Final Report ?? 09/02/2013 04:41 pm Film and interpretation reviewed by the attending Procedure Note Silvia Wolff MD - 09/02/2013 Scrotal (Signed Final 09/02/2013 04:41 pm) Patient Info ID: [id number] : [birth year] (67 yrs) Name: KEN COLE Visit Date: 09/02/2013 04:10 pm Performed By Performed By: David Lubin RDMS Associate: Kaylyn Wharton MD Attending: Silvia Wolff MD Referred By: REJI NEWBERRY MD Service(s) Provided [facility] - Ultrasound Scrotum and Contents with [id number], [id number] Vascular - [id number], [id number] Indications calcifications seen on CT. Further characterization needed Right Testicle Measurement(cm) L: 5.2 AP: 2.8 TV: 3.6 Vol (ml): 27.4 Vascularity: Normal vascularity Comment: Single punctate calcification within the testicle Right Epididymis Head: Epididymal cysts, largest measuring 1.3 cm Body: Normal Tail: Normal Right Other Hydrocele: Moderate Varicocele: Not visualized Left Testicle Measurement(cm) L: 5.2 AP: 3.1 TV: 4 Vol (ml): 33.8 Vascularity: Normal vascularity Comment: Single calcification within testicle Left Epididymis Head: Multiple epididymal cysts, largest measuring 3.4 cm Body: Normal Tail: Normal Left Other Hydrocele: Moderate Varicocele: Not visualized Impression Ultrasound - Testicular - Summary 1. Multiple bilateral epididymal head cysts, the largest of which measures 1.3 cm on the right and 3.4 cm on the left. 2. Moderate sized bilateral hydrocoeles. 3. Dilated left rete testes. 4. Punctate calcifications in the bilateral testes. This is of doubtful clinical signifignance in a person of this age. No intratesticular mass lesions identified. I viewed the images and agree with the above interpretation. Thank you for allowing us to participate in the care of KEN COLE. Please do not hesitate to call if you have any questions. Silvia Wolff MD Electronically Signed Final Report 09/02/2013 04:41 pm Film and interpretation reviewed by the attending Reji Newberry MD IMG US GEN ORDERABLE S documented in this encounter Visit Diagnoses Diagnosis Ileitis Other and unspecified noninfectious gastroenteritis and colitis Abnormal CT scan, pelvis Nonspecific (abnormal) findings on radiological and other examination of abdominal area, including retroperitoneum Abnormal CT scan, pelvis Nonspecific (abnormal) findings on radiological and other examination of abdominal area, including retroperitoneum documented in this encounter Care Teams Corporate Fitness Program Coordinator Relationship Specialty Start Date End Date Reji Newberry MD [facility] GENER[facility] [place] [address] PCP - General 02/12/12 06/27/15 documented as of this encounter
--- OUTSIDE RECORDS SUMMARY | 2024-07-09 11:20 | XMS_ITS | Encounter Summary ---
Author Organization [facility] Address [facility] [place] [address] Care Team Providers Care Administrative Office Manager Name Role Phone Reji Adams MD Primary Care Provider [phone] Encounter Details Date Type Department Care Team (Late st Contact Info) Description 12/11/2012 8:11 AM EDT - 12/11/2012 11:59 PM EDT Hospital Encounter XRay at [address] [place] [address] Shoulder pain Social History Tobacco Use Types Packs/Day [...] 81 mg by mouth daily. 08/02/2014 Saw [place] 500 mg capsule Take 500 mg by [...] 11:30 AM EDT Office Visit Gastroenterology at [facility] [place] [address] Charline Ziegler MD [facility] [place] [address] documented as of this encounter Procedures Procedure Name Priority Date/Time Associated Diagnosis Comments XR SHOULDERS MIN 2 VIEWS BILAT Routine 12/11/2012 8:37 AM EDT Pain in joint, shoulder region documented in this encounter Results * XR Bilateral Shoulders Minimum 2 views (12/11/2012 8:37 AM EDT) Anatomical Region Laterality Modality Shoulder Bilateral Radiographic [place] ging 12/11/2012 8:37 AM EDT Narrative 12/11/2012 10:20 AM EDT Examination BILATERAL SHOULDERS MIN 2 VIEWS/BILAT Clinical History BILAT SHLDR PAIN Comparison None Technique Findings Bilateral moderate AC joint arthropathy is characterized by osteophyte formation. The bilateral glenoid humeral alignment is normal. Small osteophytes arise from both glenoid humeral joint. Linear calcific densities surrounding the superior border of the right glenoid represent either calcific rotator cuff tendinopathy or labral calcification. ?? No Hill Sachs lesion. Impression ? 1. 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 ? 2. Right periarticular calcification represents either calcific rotator cuff tendinopathy or labral calcification. Procedure Note Liberty Diaz MD - 12/11/2012 Examination BILATERAL SHOULDERS MIN 2 VIEWS/BILAT Clinical History BILAT SHLDR PAIN Comparison None Technique Findings Bilateral moderate AC joint arthropathy is characterized by osteophyte formation. The bilateral glenoid humeral alignment is normal. Smallosteophytes arise from both glenoid humeral joint. Linear calcific densities surrounding the superior border of the rightglenoid represent either calcific rotator cuff tendinopathy or labralcalcification. No Hill Sachs lesion. Impression 1. 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 2. Right periarticular calcification represents either calcificrotator cuff tendinopathy or labral calcification. Roderick Perkins MD IMG DX ORDERABLES documented in this encounter Visit Diagnoses Diagnosis Shoulder pain Pain in joint, shoulder region documented in this encounter Care Teams Administrative Office Manager Relationship Specialty Start Date End Date Reji Adams MD [facility] [place] [address] PCP - General 02/12/12 06/27/15 documented as of this encounter
--- OUTSIDE RECORDS SUMMARY | 2024-07-09 11:20 | XMS_ITS | Encounter Summary ---
Author Organization [facility] [place] [address] Care Team Providers Care Cook Fish And Chips Name Role Phone Reji Newberry MD Primary Care Provider [phone] Reason for Visit * Reason Onset Date Comments Prior Authorization 04/02/2013 Encounter Details Date Type Department Care Team (Late st Contact Info) Description 04/02/2013 Telephone Internal Medicine at [place] [id number] Beckie Holbrook RNmarksmanship instructor Social History Tobacco Use Types Packs/Day Years [...] Telephone Encounter - Beckie Holbrook RN - 04/02/2013 4:30 PM EDT Ken Mckeon [address] [facility] [address] REJI NEWBERRY MD Prior Authorization Notification Insurance Carrier:[employer] Telephone Number: Patient's ID Number:[id number] Medication:Cyclobenzaprine 5 mg one nightly as needed for muscle spasms. DX:muscle spasms Meds tried:N/A Obtain_x__ Denied___ Dates Effective:Today documented in this encounter Plan of Treatment Upcoming Encounters Date Type Department Care Team (Late st Contact Info) Description 12/15/2024 11:30 AM EDT Office Visit [place] [address] Charline Ziegler MD [facility] [place] [address] documented as of this encounter Visit Diagnoses Not on filedocumented in this encounter Care Teams Cook Fish And Chips Relationship Specialty Start Date End Date Reji Newberry MD [facility] GENER[facility] [place] [address] PCP - General 02/12/12 06/27/15 documented as of this encounter
--- OUTSIDE RECORDS SUMMARY | 2024-07-09 11:20 | XMS_ITS | Encounter Summary ---
Author Organization [facility] Address [facility] [place] [address] Care Team Providers Care Siphoner Name Role Phone Reji Adams MD Primary Care Provider [phone] Reason for Visit * Reason Comments Fatigue for 4 or 5 days Dizziness comes and goes Other concerns about diabe veronica Encounter Details Date Type Department Care Team (Late st Contact Info) Description 11/16/2012 4:25 PM EDT Office Visit Internal Medicine at [address] [address] Reji Adams MD [facility] [place] [address] Frequent urination (Primary Dx); Diverticulitis Discharge Disposition: Home Social History Tobacco Use [...] Sign Reading Time Taken Comments Blood Pressure 102/75 11/16/2012 4:44 PM EDT Pulse 70 11/16/2012 4:44 PM EDT Temperature 36.8 ??C (98.2 ??F) 11/16/2012 4:44 PM ED T Respiratory Rate - - Oxygen Saturation 98% 11/16/2012 4:44 PM EDT Inhaled Oxygen Concentration - - Weight 101.8 kg (224 lb 6.4 oz) 11/16/2012 4:44 PM EDT Height 180.3 cm (5' 11) 11/16/2012 4:44 PM EDT reported Body Mass Index 31.3 11/16/2012 4:44 PM EDT documented in this encounter Progress Notes * Reji Adams MD - 11/16/2012 4:39 PM EDT ESTABLISHED PATIENT VISIT I. HISTORY a. Reason(s) for Visit: Ken Mckeon 67 y.o. male who presents today due to complaint(s) of: Chief Complaint Patient presents with ??? Fatigue for 4 or 5 days ??? Dizziness comes and goes ??? Other concerns about diabetes b. History of Present Illness:[] Pt states that has been feeling pretty tired over the last several days. Has had more frequent urination over the last several days. No burning but does go small quantities. Does not feel short of breath but will get a feeling like has to take a deep breath. No subjective fevers. No cough. Appetiteis somewhat less. No change in bowels. c. Review of Systems: Constitutional - no [...] negative d. PMH Patient Active Problem List Diagnoses ??? Cervical [...] beer per week II. PHYSICAL EXAM: BP 102/75 Pulse 70 Temp 36.8 ??C (98.2 ??F) Ht 180.3 cm (5' 11) Wt 101.787 kg (224 lb 6.4 oz) BMI 31.30 kg/m2 SpO2 98% General - No acute distress, conversing without difficulty. Eyes - EOMI. No scleral icterus Neck - No lymphadenopathy, supple, no masses Abdomen/GI - Soft, fairly tender to deep palpation LLQ, normal active bowel sounds, neg hsm or masses. Extremities - No clubbing, cyanosis or edema. III. ASSESSMENT/PLAN:Ken Mckeon 67 y.o. male presenting with non-specific symptoms but exam would be consistent with diverticulitis so will treat empirically for early diverticulitis. If does notimprove then would recommend colonoscopy. Ken was seen today for fatigue, dizziness and other. Diagnoses and associated orders for this visit: Frequent urination - POCT urine dipstick negative - ? If due to irritation from inflammation around colon Diverticulitis - metroNIDAZOLE (FLAGYL) 500 mg tablet; Take 1 tablet by mouth 3 times daily for 10 days. - ciprofloxacin (CIPRO) 500 mg tablet; Take 1 tablet by mouth 2 times daily for 10 days. - Push fluids - Call if worsens or does not improve - If severe pain, unable to keep fluids down needs to call urgently F/u prn Meds reconciled documented in this encounter Plan of Treatment Upcoming Encounters Date Type Department Care Team (Late st Contact Info) Description 12/15/2024 11:30 AM EDT Office [place] [address] Charline Ziegler MD [facility] [place] [address] documented as of this encounter Procedures Procedure Name Priority Date/Time Associated Diagnosis Comments POCT URINE DIPSTICK Routine 11/16/2012 4 :45 PM EDT Frequent urination documented in this encounter Results * POCT urine dipstick (11/16/2012 4:45 PM EDT) POC Sp [place] 1.010 1.002 - 1.030 POC pH, UA [...] Blood, UA neg Negative - Negative denise/uL 11/16/2012 4:45 PM EDT Reji Adams MD POINT OF CARE TEST O RDERABLES documented in this encounter Visit Diagnoses Diagnosis Frequent urination- Primary Urinary frequency Diverticulitis Diverticulitis of colon (without mention of hemorrhage) documented in this encounter Care Teams Siphoner Relationship Specialty Start Date End Date Reji Adams MD [facility] [address] [place] [address] PCP - General 02/12/12 06/27/15 documented as of this encounter
--- OUTSIDE RECORDS SUMMARY | 2024-07-09 11:20 | XMS_ITS | Encounter Summary ---
Author Organization [facility] Address [facility] [place] [address] Care Team Providers Care Sign Wirer Name Role Phone Reji Adams MD Primary Care Provider [phone] Encounter Details Date Type Department Care Team (Latest Contact Info) Description 08/31/2013 8:47 AM EST - 08/31/2013 11:59 PM [facility] [place] [address] CLINIC, Reji Juan MD [facility] GENERAL [place] [address] Abdominal discomfort Discharge Disposition: Home Social History Tobacco Use [...] 81 mg by mouth daily. 08/02/2014 Saw Bertram 500 mg capsule Take 500 mg by mouth daily. 03/14/2020 Mavis Extract 500 mg Cap Take 1 capsule by mouth daily. 03/24/2017 naproxen sodium (ALEVE) 220 mg tablet Take 220 mg by mouth as needed. 01/04/2011 07/09/2017 documented as of this encounter Miscellaneous Notes * Miscellaneous - Provider, Scanning - 09/03/2013 7:43 PM EST documented in this encounter Plan of Treatment Upcoming Encounters Date Type Department Care Team (Late st Contact Info) Description 12/15/2024 11:30 AM EDT Office [place] [address] Charline Ziegler MD [facility] [place] [address] documented as of this encounter Procedures Procedure Name Priority Date/Time Associated Diagnosis Comments CT ABDOMEN AND PELVIS W CONTRAST Routine 08/31/2013 11:16 AM EST Abdominal discomfort documented in this encounter Results * (ABNORMAL) CT abdomen & pelvis with contrast (08/31/2013 11:16 AM EST) Anatomical Region Laterality Modality Abdomen, Pelvis Computed Tomogra phy 08/31/2013 11:1 6 AM EST Narrative 08/31/2013 12:[address] Abdomen / Pelvis With Contrast Clinical History loss of appetite/abd discomfort ? mass Comparison None Technique CT abdomen/ pelvis with 110 cc of Omnipaque 350 Findings Lower chest: No focal opacity or nodule. ??No pleural effusion. No pericardial effusion. Liver and gallbladder are normal. Spleen, pancreas, and adrenals are normal. 8 x 8 mm cyst in the right interpolar region of the kidney. No identifiable wall or internal septations. Additional small cystic focus in the inferior pole of the right kidney, too small to characterize. No collecting system dilatation. 8 cm long segment of terminal ileum is focally thickened and edematous, with no contrast observed distal to this site. No dilated loops of small bowel. The colon is unremarkable. Multiple enlarged mesenteric lymph nodes. No periaortic, retroperitoneal lymphadenopathy. ?? No suspicious osseous lesions. Calcified left testicle seen in the scrotum. ?? Impression 1. UNEXPECTED FINDINcm segment of thickened edematous terminal ileum and mesenteric lymphadenopathy, with no oral contrast seen within the colon. Differential includes inflammatory bowel disease, versus infectious causes. Not a typical appearance for malignancy. ??Recommend gastroenterological consult. 2. Calcifications in the left testicle, recommend ultrasound for further evaluation. Film and interpretation reviewed by the attending Resulting Agency Comment Unexpected Finding Procedure Note Bernie Fernando MD - 08/31/[address] Abdomen / Pelvis With Contrast Clinical History loss of appetite/abd discomfort ? mass Comparison None Technique CT abdomen/ pelvis with 110 cc of Omnipaque 350 Findings Lower chest: No focal opacity or nodule. No pleural effusion. Nopericardial effusion. Liver and gallbladder are normal. Spleen, pancreas, and adrenals arenormal. 8 x 8 mm cyst in the right interpolar region of the kidney. No identifiablewall or internal septations. Additional small cystic focus in the inferior poleof the right kidney, too small to characterize. No collecting systemdilatation. 8 cm long segment of terminal ileum is focally thickened and edematous, withno contrast observed distal to this site. No dilated loops of small bowel.The colon is unremarkable. Multiple enlarged mesenteric lymph nodes. Noperiaortic, retroperitoneal lymphadenopathy. No suspicious osseous lesions. Calcified left testicle seen in thescrotum. Impression 1. UNEXPECTED FINDINcm segment of thickened edematous terminal ileumand mesenteric lymphadenopathy, with no oral contrast seen within the colon. Differential includes inflammatory bowel disease, versus infectiouscauses. Not a typical appearance for malignancy. Recommend gastroenterologicalconsult. 2. Calcifications in the left testicle, recommend ultrasound for further evaluation. Film and interpretation reviewed by the attending Reji Adams MD IM CT ORDERABLES documented in this encounter Visit Diagnoses Diagnosis Abdominal discomfort Abdominal pain, unspecified site documented in this encounter Administered Medications Inactive Administered Medications - up to 3 most recent administrations Medication Order MAR Action Action Date Dose Rate Site iohexol (OMNIPAQUE) 350 mg iodine/mL injection 17,500 mg 17,500 mg (50 mL), Oral, ONCE PRN, 1 dose, Starting on Tu08/31/13 at 1106, Until 08/31/13 at 0900, Per Protocol, Routine Given 08/31/2013 9:00 AM EST 17,500 mg iohexol (OMNIPAQUE) 350 mg iodine/mL injection 38,500 mg 38,500 mg (110 mL), Intravenous, ONCE PRN, 1 dose, Starting on Fri08/31/13 at 1106, Until Fri08/31/13 at 1111, Per Protocol, Routine Given 08/31/2013 11:11 AM EST 38,500 mg documented in this encounter Care Teams Sign Wirer Relationship Specialty Start Date End Date Reji Adams MD [facility] [place] [address] PCP - General 02/12/12 06/27/15 documented as of this encounter
--- OUTSIDE RECORDS SUMMARY | 2024-07-09 11:20 | XMS_ITS | Encounter Summary ---
Author Organization [facility] Address [facility] [place] [address] Care Team Providers Care Direct Marketing Manager Name Role Phone Reji Adams MD Primary Care Provider [phone] Encounter Details Date Type Department Care Team (Late st Contact Info) Description 11/05/2012 Orders [place] [phone] Seth Del Angel MD [facility] [place] [address] Left knee pain (Primary Dx) Social History Tobacco Use [...] 11:30 AM EDT Office Visit [place] [phone] Charline Ziegler MD [facility] [place] [address] documented as of this encounter Visit Diagnoses Diagnosis Left knee pain- Primary Pain in joint, lower leg documented in this encounter Care Teams Direct Marketing Manager Relationship Specialty Start Date End Date Reji Adams MD [facility] [address] PCP - General 02/12/12 06/27/15 documented as of this encounter
--- OUTSIDE RECORDS SUMMARY | 2024-07-09 11:20 | XMS_ITS | Encounter Summary ---
Author Organization [facility] [place] [address] Care Team Providers Care Surplus Property Disposal Agent Name Role Phone Reji Adams MD Primary Care Provider [phone] Reason for Referral * Physical Therapy (Routine) - Closed Specialty Diagnoses / Procedures Referred By Duglas t Referred To Contact Physical Therapy Diagnoses Neck pain Cyndi Valencia CHANGE CONTROL MANAGER [facility] [place] [address] [facility] [place] [address] Referral ID Status Reason Start Date Expiration Date V isits Requested Visits Authorized [id number] Closed Evaluate and Treat 08/24/2012 02/20/2013 1 1 Reason for Visit * Reason Comments Neck And Shoulder Pain bilateral shoulde r pain Encounter Details Date Type Department Care Team (Late st Contact Info) Description 08/24/2012 2:20 PM EST Office [place] [address] Cyndi Valencia [facility] [address] Neck pain (Primary Dx) Discharge Disposition: Home [...] - Inhaled Oxygen Concentration - - Weight 98.9 kg (218 lb) 08/24/2012 2:12 PM EST Height 180.3 cm (5' 11) 08/24/2012 2:12 PM EST Body Mass Index 30.4 08/24/2012 2:12 PM EST documented in this encounter Progress Notes * Cyndi Valencia, CHANGE CONTROL MANAGER - 08/24/2012 2:52 PM EST Chief complaint: Neck pain History of present illness: The is and gradually over time in April student started having neck pain that radiates occasionally to the shoulders and the back of the head.. he can get some pain in the palm of the left hand and the forearm that is achy in quality but this is not usual. He is sleeping with the aid of clonazepam. He has no gait or balance are fine motor difficulties. His exercise habits are minimal in the winter. Past medical history: Prior back surgery, knee surgery Social and family history: He is a maria antonia. He bowhunt using the left arm even though he is right-handed and he wonders if this contributes to his symptoms. Review of Systems: Negative for GI, , constitutional symptoms. Medications and allergies were reviewed and updated. Physical Examination: Is a pleasant gentleman who is right-hand dominant. He is good historian. Hisshoulders, hips, knees are grossly level to inspection he is tender over the C6 vertebral body and in the lower lumbar spine just above his lumbar scar from spinal surgery. Gait is nonantalgic he cantandem walk and single leg balance without difficulty. He has mildly reduced as range of motion in the cervical spine in flexion, extension, rotation particularly more so to the right. He has a negative for meets, his reflexes are symmetrical and normal reflexive and there is no Duran or clonus and Babinski with downgoing toes. Diagnostic data: Cervical spine x-rays which were reviewed and show some narrowing and the disc space at several levels of the cervical spine and foraminal narrowing at C3-4 on the left. Assessment: Cervicalgia and cervical spondylosis Plan: As to whether or not an injection would help him I think it would likely not at least initially. He has not had yet an MRI and so he cannot have an injection at any point in time until he is had that. We mutually agreed to have him try some Adelia based physical therapy to begin with and ifthat alleviates his symptoms that is all well and good if not however he will let me know and I will order him an MRI will review whether or not he has any foraminal stenosis or central canal stenosis that would make a epidural steroid injection a possibility. If not he might benefit from cervical medial branch block and radiofrequency. I have not scheduled a followup is instructed to call back if he doesn't improve with physical therapy alone. 35 minutes out of this 45 minute visit was spent in face to face discussion of present symptoms andfuture plan of care. This note was written with voice recognition software. Although I do review all notes for accuracy,there may be inadvertent errors in packager and strapper. Please contact my office at [phone] for any issues related to the text of this medical record. documented in this encounter Plan of Treatment Upcoming Encounters Date Type Department Care Team (Late st Contact Info) Description 12/15/2024 11:30 AM EDT Office Visit [place] [address] Charline Ziegler MD [facility] [place] [address] Scheduled Referrals Name Type Priority Associated Diagnoses Orde r Schedule Referral to Physical Therapy Outpatient Referral Routine Neck pain Ordered: 08/24/2012 documented as of this encounter Visit Diagnoses Diagnosis Neck pain- Primary Cervicalgia documented in this encounter Care Teams Surplus Property Disposal Agent Relationship Specialty Start Date End Date Reji Adams MD [facility] [place] [address] PCP - General 02/12/12 06/27/15 documented as of this encounter
--- OUTSIDE RECORDS SUMMARY | 2024-07-09 11:20 | XMS_ITS | Encounter Summary ---
Author Organization [facility] Address [facility] [place] [address] Care Team Providers Care Director [employer] Name Role Phone Reji Adams MD Primary Care Provider [phone] Encounter Details Date Type Department Care Team (Late st Contact Info) Description 04/12/2013 2:00 PM EDT Office Visit Physical Therapy at [facility] [address] [place] [address] Ron Stout, PT [facility] PHYSICAL MEDICINE & [place] [address] Reji Adams MD [facility] [place] [address] Back pain Discharge Disposition: Home Social History [...] as of this encounter Progress Notes * Ron Zhao PT - 04/12/2013 2:10 PM EDT PHYSICAL THERAPY INITIAL EXAMINATION Date of Exam/First Treatment: 04/12/2013 Date of onset: last 6 weeks Referring Provider: Reji Adams Diagnosis: No diagnosis found. Medicare Certification period: 04/12/2013 - 06.12.13 CURRENT HISTORY: Ken Mckeon is a 67 y.o. male referred to physical therapy for treatment of right sided mid backpain. Patient states he has had this problem in the past - occ pain; however now he has started a new job he has increased pain after working 3 hours and leans to the left side. 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 3.5 hours each night. Does complete all activities with the right hand - tries to use the left hand, however is very slow with using the left upper extremity. Patient has history of cervical radiculopathy and bilat shoulder pain. Pain: sitting here in clinic 0/10 pain in the back region best 2/10; worst 8/10 pain begins during work activities and progresses as he cont to work. denies numbness and tingling x-rays: none obtained RED FLAGS: denies: Bowel/bladder, recurrent fever/chills, saddle paresthesias, unexplained weight loss Home self treatment includes: rest Social history: patient hobbies include archery, kayaking, and fishing. patient does not participate in formal exercise program. Prior level of Function: no pain in the mid back region during all functional activities Functional Limitations: diff with housecleaning job, diff with functional activities, pain with walking, sleeping CLINICAL FINDINGS: Posture: standing with forward head posture, rounded shoulders, increased thoracic kyphosis Gait: amb with normal gait pattern Range of motion: Range of motion (deg) lumbar flexion 70 extension 30 SB right 50% SB left 50% rotation right 60% rotation left 60% shoulder flexion full abduction full IR/ER full decreased thoracic rotation bilat; greater limitation with rotation to the left decreased overall thoracic mobility Strength ( /5) shoulder strength is 4+/5, scap strength is 4-/5 lumbar extension strength 4 abdominal strength 3+ Flexibility: decreased: pec, biceps, upper trap region, anterior cervical muscular tight Special Tests: negative spurlings; normal rib mobility no pain with deep inhalation Joint mobility: segmental mobility at lumbar spine: decreased PA mobility; segmental mobility at the thoracic spine: Hypomobile Palpation: Tenderness with palpation at right paraspinal ms in the thoracic region, decreased pain in the lower trap and lat region Sensation: intact light touch. CLINICAL EVALUATION AND DIAGNOSIS: These findings are consistent with mid back pain associated with repetitive trunk rotation to the right side during functional activities - patient has mild muscle spasms in the right side of the thoracic region. Patient needs to work on mobility, rotation to the left side, Patient additionally will benefit from strengthening the thoracic and scapular and rotator cuff region to increase toleranceto work demands. Expect with skilled physical therapy interventions patient will be able to return to prior level offunction. G-Code: Carrying, Moving & Handling Objects Status Modifier CURRENT CJ - At least 20 percent but less than 40 percent impaired, limited or restricted PROJECTED CI - At least 1 percent but less than 20 percent impaired, limited or restricted DISCHARGE Not Discharged Yet - Ongoing G Code Rationale: This G-Code and these disability modifiers were selected as the primary therapy goal based upon the patient's evaluation. Current ability measures, co-morbidities and clinical judgement were also used to select the disability modifier. This patient's current G-Code functional level is 30% impaired based upon range of motion, limitations at work and functional status. . Medicare Therapy G-Code Date Tracking: (Update G-Code status every 10 visits or when code changes) 1 2 3 4 5 6 7 8 9 10 04/12/2013 GOALS: Therapy Short Term Goals (10.16.13) 1. Patient to be indep with home exercise program. 2. Patient to have less than 2/10 pain at the end of the day. Therapy Forging Engineer Goals ( 11.16.13) 3. Patient to be able to complete work activities with upright posture at the end of the day. INITIAL TREATMENT INCLUDED: Examination and instruction in a home exercise program (refer to chart copy or to scan doc in chart review for details), patient education regarding physical therapy plan of care, anatomy and diagnosis. PLAN: Frequency and duration: 2 x per week for 8 weeks Treatment plan: Manual Techniques, Soft tissue mobilization, Stretching, Joint mobilization, Therapeutic exercise, Patient/Family education, Body Mechanics, Posture and Home Exercise Program Total Treatment time: 45 min Total Timed Coded Treatment: 0 min The plan has been discussed with the patient and Ken Mckeon has agreed with the planned treatment. RON ZHAO PT documented in this encounter Miscellaneous Notes * Miscellaneous - Provider, Scanning - 06/10/2013 11:32 AM EST * Miscellaneous - Provider, Scanning - 04/26/2013 2:50 PM EDT documented in this encounter Plan of Treatment Upcoming Encounters Date Type Department Care Team (Late st Contact Info) Description 12/15/2024 11:30 AM EDT Office [place] [address] Charline Ziegler MD [facility] [place] [address] documented as of this encounter Visit Diagnoses Diagnosis Back pain Backache, unspecified documented in this encounter Care Teams Director [employer] Relationship Specialty Start Date End Date Reji Adams MD [facility] [place] [address] PCP - General 02/12/12 06/27/15 documented as of this encounter
--- OUTSIDE RECORDS SUMMARY | 2024-07-09 11:20 | XMS_ITS | Encounter Summary ---
Author Organization [facility] Address [facility] [place] [address] Care Team Providers Care Director Of Enrollment Name Role Phone Reji Adams MD Primary Care Provider [phone] Reason for Referral * Physical Therapy (Routine) - Closed Specialty Diagnoses / Procedures Referred By Duglas arizmendi Referred To Contact Physical Therapy Diagnoses Bilateral shoulder pain [facility] [address] [place] [address] [facility] [place] [address] Referral ID Status Reason Start Date Expiration Date V isits Requested Visits Authorized [id number] Closed Evaluate and Treat 12/11/2012 06/09/2013 1 1 Reason for Visit * Reason Comments Bilateral Shoulder Pain Previous Rotator cuff repair Encounter Details Date Type Department Care Team (Late st Contact Info) Description 12/11/2012 8:45 AM EDT Office Visit Orthopaedics [place] [address] Roderick Perkins MD [facility] [place] [address] Bilateral shoulder pain (Primary Dx) Discharge Disposition: [...] Sign Reading Time Taken Comments Blood Pressure 109/69 12/11/2012 9:06 AM EDT Pulse 66 12/11/2012 9:06 AM EDT Temperature - - Respiratory Rate - - Oxygen Saturation - - Inhaled Oxygen Concentration - - Weight - - Height - - Body Mass Index - - documented in this encounter Progress Notes * Roderick Perkins MD - 12/11/2012 12:04 PM EDT Attending addendum: The preceeding portion of this note was written by Raymond Joseph PA-C. I personally saw and evaluated the patient as well and I agree with the assessment and plan documented above. Roedrick Perkins M.D., M.S. 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 He presents for evaluation of bilateral shoulder pain, left greater than right today. He has had symptoms for several years. He goes on to tell me that he has had surgery on both shoulders with rotator cuff repair on the left in 1970s and a debridement on the right in 1984. Both of these were done in [place]. He is also being followed for C-spine issues by our spine center. He tells me that his shoulder pain is located in the anterior aspect of the shoulders. It is worse with activity. He tells me that his pain level is 0-8/10 depending on activity. He is a very active outdoorsman to include kayaking, fishing, and very avid bow maria an[place]ia. He tells me that he practices daily for bowhunting. His symptoms do not cause him to awaken at night nor do they prevent sleep. He denies paresthesias. He had one injection in his shoulder in 1975 approximately. He was taking an occasional anti-inflammatory, but when it was found that he was having some blood in his stools, he discontinued that. He is self referred for this complaint and is followed for primary care by Reji Adams. He has had x-rays today. In short, he has had years of shoulder pain that is worsening, worse with bowhunting, does not awaken him from sleep. He has not done any therapy beyond an informal home program and he has had surgery on both shoulders. He is interested in finding out what his issues are regarding his shoulder and whether or not he would need something done with these. Current Outpatient Prescriptions on File Prior to Visit Medication Sig Dispense Refill ??? clonAZEpam (KLONOPIN) 0.5 mg tablet Take 1 tablet by mouth 2 times daily as needed for Anxiety.60 tablet 0 ??? aspirin 81 mg EC tablet Take 81 mg by mouth daily as needed. ??? multivitamin (THERAGRAN) tablet Take 1 tablet by mouth daily. ??? Saw [place] 500 mg capsule Take 500 mg by mouth daily. ??? Mavis Extract 500 mg Cap Take 1 capsule by mouth daily. ??? naproxen sodium (ALEVE) 220 mg tablet Take 220 mg by mouth as needed. ??? DISCONTD: ciprofloxacin (CIPRO) 250 mg tablet Take 1 tablet by mouth 2 times daily for 28 days.56 tablet 0 Allergies Allergen Reactions ??? Penicillins Tongue swelling Patient Active Problem List Diagnoses Code ??? 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 Cataract extraction status of left eye V45.61 ??? OA (osteoarthritis) of knee 715.96 ??? Lightheadedness 780.4 ??? 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 Anxiety 300.00 ??? Neck pain 723.1 ??? Insomnia 780.52 ??? Cervical radiculopathy 723.4 ??? Bilateral shoulder pain 719.41 Past Surgical History Procedure Date ??? Created by interface Past surg hx. Procedure Date: 09/19/2010 ??? Ligate/strip long saph vein belw sep-fem junc 06/02/2012 LIGATION\DIV\STRIP GREATER SAPHENOUS VEIN performed by BEATRICE RODRÍGUEZ at [facility] MAIN OR ??? Phleb veins - extrem - to 20 06/02/2012 STAB PHLEBECTOMY KARLI VEINS, EXTREMITY 10-20 INCISIONS-SANTI performed by BEATRICE RODRÍGUEZ at [facility] MAIN OR History Social History ??? Marital Status: Spouse [...] History Narrative ??? No narrative on file This problem does not prevent ADL's (Dressing, Eating, Ambulating, Toileting and Hygiene) or IADL's(Shopping, Housekeeping, Accounting, Food preparation and Transportation) Family History Problem Relation Age of Onset ??? Cancer Mother bone ??? Diabetes Father ??? Cancer Father testicular Denies fever, chills, nausea, vomiting, vision change, shortness of breath, chest pain, vision changes, headaches, bowel or bladder problem, ear, nose, sinus problem, neuro or psychiatric, or endocrine disorder. PHYSICAL EXAMINATION: Ken is awake, alert, and oriented x3, in no acute distress, resting comfortably in the exam room. He is a pleasant gentleman with an appropriate affect and demeanor for today's visit. He is able to remove his shirt without difficulty. His arms and his back have several tattoos. No overlying erythema, edema, or ecchymosis, bogginess, fluctuance, drainage, or break in the skin. Sensation is intact to lateral antebrachial cutaneous, axillary, radial, ulnar, and median nerves. Motor intact to musculocutaneous, axillary, radial, ulnar, and median distributions as well. HEENT: Normocephalic atraumatic. Sclerae clear. Nose: Patent. Neck: Supple. He has some discrete discomfort with C-spine range of motion, but it does not affect his shoulder pain. Range of motion is grossly full to forward elevation and abduction. Internal and external rotation strengths are strong. He has a negative empty can and negative belly press. He does have a positive Madera's bilaterally. He has no instability. He has no apprehension. Distal pulses are 2+. Cardiovascular status is regular rate and rhythm by palpation. He has negative Clark, negative Neer's, and negative Yergason's. DIAGNOSTIC DATA: Imaging studies show mild glenohumeral and AC arthritis. He has negative tenderness over the bilateral AC joints with negative cross body adduction. Dr. Perkins examined the patient and agrees with the above. We discussed treatment options to include therapy, antiinflammatories (these are not recommended with his history of heme-positive stools). He asks about glucosamine supplements and that is reasonable. We will also start him on a home program for therapy for range of motion and strengthening. He will meet with our therapist this morning. We spent a good 20 plus minutes discussing his complaints, his exam, treatment options, and prognosis. He understands the nature of his complaint and will follow up on an as-needed basis. documented in this encounter Plan of Treatment Upcoming Encounters Date Type Department Care Team (Late st Contact Info) Description 12/15/2024 11:30 AM EDT Office Visit Gastroenterology [place] [address] Charline Ziegler MD [facility] [place] [address] Scheduled Referrals Name Type Priority Associated Diagnoses Orde r Schedule Referral to Physical Therapy Outpatient Referral Routine Bilateral shoulder pain Ordered: 12/11/2012 documented as of this encounter Visit Diagnoses Diagnosis Bilateral shoulder pain- Primary Pain in joint, shoulder region documented in this encounter Care Teams Director Of Enrollment Relationship Specialty Start Date End Date Reji Adams MD [facility] [place] [address] PCP - General 02/12/12 06/27/15 documented as of this encounter
--- OUTSIDE RECORDS SUMMARY | 2024-07-09 11:20 | XMS_ITS | Encounter Summary ---
Author Organization [facility] [place] [address] Care Team Providers Care Turkey Boner Name Role Phone Reji Adams MD Primary Care Provider [phone] Reason for Visit * Reason Onset Date Comments Results 05/07/2013 Encounter Details Date Type Department Care Team (Late st Contact Info) Description 05/07/2013 Telephone Internal Medicine at [place] [id number] Dong Holbrook, RN Results Social History Tobacco Use Types Packs/Day [...] encounter Miscellaneous Notes * Telephone Encounter - Dong Holbrook RN - 05/07/2013 2:43 PM EDT TC to the patient re: results. * Telephone Encounter - Dong Holbrook RN - 05/07/2013 2:43 PM EDT Message copied by DONG HOLBROOK on FriMay 07, 2013 2:43 PM ------ Message from: KAYLA STEVENSON Created: FriMay 07, 2013 2:08 PM Regarding: please call patient with results Please tell him no hernia is seen on ultrasound. He can use NSAIDs and time will probably resolve. Likely a muscular strain. Thanks Kayla ----- Message ----- From: Department, Radiology Sent: 05/06/2013 3:25 PM To: MATT Hdez documented in this encounter Plan of Treatment Upcoming Encounters Date Type Department Care Team (Late st Contact Info) Description 12/15/2024 11:30 AM EDT Office [place] [address] Charline Ziegler MD [facility] [place] [address] documented as of this encounter Visit Diagnoses Not on filedocumented in this encounter Care Teams Turkey Boner Relationship Specialty Start Date End Date Reji Adams MD [facility] GENERAL [place] [address] PCP - General 02/12/12 06/27/15 documented as of this encounter
--- OUTSIDE RECORDS SUMMARY | 2024-07-09 11:20 | XMS_ITS | Encounter Summary ---
Author Organization [facility] [place] [address] Care Team Providers Care Will Call Clerk Name Role Phone Reji Adams MD Primary Care Provider [phone] Encounter Details Date Type Department Care Team (Latest Contact Info) Description 02/02/2013 8:20 AM EDT - 02/02/2013 11:59 PM EDT Hospital [place] [address] Ron Burns MD [address] [facility] [address] [place] [address] Discharge Disposition: Home Social History Tobacco Use [...] 81 mg by mouth daily. 08/02/2014 Saw [place]iba 500 mg capsule Take 500 mg by [...] 11:30 AM EDT Office [place] [address] Charline Ziegler MD [facility] [place] [address] documented as of this encounter Procedures Procedure Name Priority Date/Time Associated Diagnosis Comments TSH Routine 02/02/2013 8:28 AM EDT LIPID PANEL (REFLEX DIRECT LDL) Routine 02/02/2013 8:28 AM EDT documented in this encounter Results * (ABNORMAL) Lipid panel (fasting) (02/02/2013 8:28 AM EDT) [facility] Signature Cholesterol, Total 179 <=199 mg/dL CERNER Virtual Event BagsENNIUM Comment: Recommendations of the NCEP Adult Treatment Panel for the following risk cutoff thresholds for the [place] population: Desirable: <200 mg/dL Borderline High: 200-239 mg/dL High: > or = 240 mg/dL Triglyceride 78 <=149 mg/dL CERNER MILLENNIUM Comment: Reference Range: Normal triglycerides: ??<150 mg/dL Borderline high: ??150-199 mg/dL High: ??200-499 mg/dL Very high: ??>dt=832 mg/dL MARKEL 2001; 285(19):2333-7440 HDL Cholesterol 55 >=40 mg/dL CER NER MILLENNIUM Comment: Reference range: ??Low HDL: ?? < 40 mg/dL ??Normal: ?40-60 mg/dL ??Desirable: > 60 mg/dL MARKEL 2001; 285(19):5733-5466 LDL Cholesterol 108(H) <=99 mg/dL CER NER MILLENNIUM Comment: Reference range: ?? Optimal: ?<100 mg/dL ?? Near Optimal/Above Optimal: ?? 100-129 mg/dL ?? Borderline high: ?130-159 mg/dL ?? High: ? 160-189 mg/dL ?? Very high: ?>nd=084 mg/dL MARKEL 2001: 285(19):3594-2250 Cholesterol/HDL Ratio 3.3 ratio CERNER MILLENNIUM Comment: A Cholesterol to HDL ratio below 4:1 is desirable. ??Studies suggest that increased CAD risk occurs at ratios above 5 for females and above 6 for men. ? [place] Heart Association ??(http://www.americanheart.org) ? [place] Int Med, 1994; 121:641 ? AM J Med, 1998; 105(1A):48S Blood specimen (specimen) 02/02/2013 8:28 AM EDT 02/02/2013 8:32 AM EDT Narrative Resulting Agency Comment Spec In Lab Ron Burns MD CHEMISTRY ORDERABLES Performing Organization Address [facility] de Phone Number SOY CHEUNGENNIUM * TSH (02/02/2013 8:28 AM EDT) Thyroid Stimulating Hormone 1.56 0.27 - 4.20 mcIU/mL CERNER MILLENNIUM Blood specimen (specimen) 02/02/2013 8:28 AM EDT 02/02/2013 8:32 AM EDT Narrative Resulting Agency Comment Spec In Lab Ron Burns MD CHEMISTRY ORDERABLES Performing Organization Address [facility] de Phone Number SOY CHEUNGENNIUM documented in this encounter Visit Diagnoses Not on filedocumented in this encounter Care Teams Will Call Clerk Relationship Specialty Start Date End Date Reji Adams MD [facility] GENERAL [place] [address] PCP - General 02/12/12 06/27/15 documented as of this encounter
--- OUTSIDE RECORDS SUMMARY | 2024-07-09 11:20 | XMS_ITS | Encounter Summary ---
Author Organization [facility] Address [facility] [place] [address] Care Team Providers Care Butadiene Compressor Operator Name Role Phone Reji Adams MD Primary Care Provider [phone] Encounter Details Date Type Department Care Team (Latest Contact Info) Description 05/06/2013 2:41 PM EDT - 05/06/2013 11:59 PM EDT Hospital Encounter [place] [address] CLINIC, Shante Walter MD [facility] GENERAL [place] [address] Right inguinal hernia Discharge Disposition: Home Social History Tobacco Use [...] 81 mg by mouth daily. 08/02/2014 Saw [place] 500 mg capsule Take 500 mg by [...] Office Visit Gastroenterology at [facility] [place] [address] Charline Ziegler MD [facility] [place] [place] [address] documented as of this encounter Procedures Procedure Name Priority Date/Time Associated Diagnosis Comments US ABDOMEN LIMITED Routine 05/06/2013 3: 20 PM EDT Inguinal hernia without mention of obstruction or gangrene, unilateral or unspecified, (not specified as recurrent) documented in this encounter Results * US abdomen limited (05/06/2013 3:20 PM EDT) Anatomical Region Laterality Modality Abdomen Ultrasound 05/06/2013 3:20 PM EDT Narrative 05/06/2013 3:25 PM EDT ?Abdominal ? (Signed Final 05/06/2013 03:22 pm) Patient Info ID: ? [id number] ? : [birth year] (67 yrs) Name: ? KEN COLE ?Visit Date: 05/06/2013 03:19 pm Performed By Performed By: ?Daniel GRIMM, ??Quita Associate: ? Reinaldo CHAVEZ, Azeem Rasheed Attending: ? CherMaria Victoria pires MD. Referred By: ? KAYLA GUTIERREZ Service(s) Provided UABDLIM - Abdominal Limited Survey Single ? 99819 Organ or Quadrant - [id number] Indications rule out right inguinal hernia Impression Ultrasound - Abdomen Limited - Summary Right inguinal canal was visualized and no definitive hernia visualized. I ??viewed the images and agree with the above interpretation. Thank you for allowing us to participate in the care of KEN COLE. Please do not hesitate to call if you have any questions. ?Maria Victoria Villafana MD Electronically Signed Final Report ?? 05/06/2013 03:22 pm Film and interpretation reviewed by the attending Procedure Note Maria Victoria Villafana MD - 05/06/2013 Abdominal (Signed Final 05/06/2013 03:22 pm) Patient Info ID: [id number] : [birth year] (67 yrs) Name: KEN COLE Visit Date: 05/06/2013 03:19 pm Performed By Performed By: Quita Sanchez RDMS Associate: Azeem Najera MD Attending: Maria Victoria Villafana MD Referred By: KAYLA GUTIERREZ Service(s) Provided UABDLIM - Abdominal Limited Survey Single 97264 Organ or Quadrant - [id number] Indications rule out right inguinal hernia Impression Ultrasound - Abdomen Limited - Summary Right inguinal canal was visualized and no definitive hernia visualized. I viewed the images and agree with the above interpretation. Thank you for allowing us to participate in the care of KEN COLE. Please do not hesitate to call if you have any questions. Maria Victoria Villafana MD Electronically Signed Final Report 05/06/2013 03:22 pm Film and interpretation reviewed by the attending Shante Richardson MD IMG US GEN ORDERABLE S documented in this encounter Visit Diagnoses Diagnosis Right inguinal hernia Inguinal hernia without mention of obstruction or gangrene, unilateral or unspecified, (not specified as recurrent) documented in this encounter Care Teams Butadiene Compressor Operator Relationship Specialty Start Date End Date Reji Adams MD [facility] [place] [address] PCP - General 02/12/12 06/27/15 documented as of this encounter
--- OUTSIDE RECORDS SUMMARY | 2024-07-09 11:20 | XMS_ITS | Encounter Summary ---
Author Organization [facility] Address [facility] [place] [address] Care Team Providers Care Voice Network Engineer Name Role Phone Reji Adams MD Primary Care Provider [phone] Reason for Referral * Consultation (Routine) - Closed Specialty Diagnoses / Procedures Referred By Duglas arizmendi Referred To Contact Gastroenterology Diagnoses Abdominal discomfort Reji Adams MD [facility] GENERAL [place] [address] [facility] [address] [place] [address] Referral ID Status Reason Start Date Expiration Date V isits Requested Visits Authorized [id number] Closed Test Only 08/24/2013 02/20/2014 1 1 Reason for Visit * Reason Comments Other no appetite for 2 we eks Fatigue for 2 weeks Other stomach feels hard a nd bloated at times Dizziness 2 spells of being di zzy Insomnia not sleeping well Urinary Frequency seems to being going more Encounter Details Date Type Department Care Team (Late st Contact Info) Description 08/24/2013 10:05 AM EST Office Visit Internal Medicine at [address] [address] Reji Adams MD [facility] GENERAL [place] [address] Abdominal discomfort (Primary Dx); Frequent urination Discharge Disposition: Home Social History Tobacco Use [...] Sign Reading Time Taken Comments Blood Pressure 104/67 08/24/2013 2:38 PM EST Pulse 71 08/24/2013 2:38 PM EST Temperature 36.8 ??C (98.2 ??F) 08/24/2013 2:38 PM ES T Respiratory Rate - - Oxygen Saturation 100% 08/24/2013 2:38 PM EST Inhaled Oxygen Concentration - - Weight 99.3 kg (219 lb) 08/24/2013 2:38 PM EST Height 180.3 cm (5' 11) 08/24/2013 2:38 PM EST reported Body Mass Index 30.54 08/24/2013 2:38 PM EST documented in this encounter Progress Notes * Reji Adams MD - 08/24/2013 2:44 PM EST ESTABLISHED PATIENT VISIT I. HISTORY a. Reason(s) for Visit: Ken Mckeon 67 y.o. male who presents today due to complaint(s) of: Chief Complaint Patient presents with ??? Other no appetite for 2 weeks ??? Fatigue for 2 weeks ??? Other stomach feels hard and bloated at times ??? Dizziness 2 spells of being dizzy ??? Insomnia not sleeping well ??? Urinary Frequency seems to being going more b. History of Present Illness:[] See previous notes for details regarding workup for frequent urination and previous episodes of abddiscomfort. States that this is all the same sxs as previous notes. States abd will feel bloated etc. Still having some urinary frequency. Has decrease appetite. States abd will feel hard from time to time. Bowels are somewhat irregular. States is just concerned because we don't have a answer. c. Review of Systems: Constitutional - no [...] PMH Patient Active Problem List Diagnosis ??? Back pain ??? Depression ??? Bilateral [...] of beer per week II. PHYSICAL EXAM: Ht 180.3 cm (5' 11) General - No acute distress, conversing without difficulty. ENT - oropharynx without lesions. Eyes - EOMI. No scleral icterus Neck - No lymphadenopathy, supple, no masses Abdomen/GI - Soft, mild diffuse tendernes, normal active bowel sounds, neg hsm or masses. Extremities - No clubbing, cyanosis or edema. III. ASSESSMENT/PLAN:Ken Mckeon 67 y.o. male presenting for abdominal discomfort of unknown etiology. Pt has had fairly extensive workup thus far for these complaints without known cause. Feel most likely is IBS but will get colo (due anyway) and CT abd given decreased appetite to r/o malignancy although has not had any weight loss. If tests negative then will likely consider FODMAP diet F/u pending results Meds reconciled documented in this encounter Plan of Treatment Upcoming Encounters Date Type Department Care Team (Late st Contact Info) Description 12/15/2024 11:30 AM EDT Office [place] [address] Charline Ziegler MD [facility] [place] [address] Scheduled Referrals Name Type Priority Associated Diagnoses Order Schedule Referral to Gastroenterology Outpatient Referral Routine Abdominal discomfort Ordered: 08/24/2013 documented as of this encounter Procedures Procedure Name Priority Date/Time Associated Diagnosis Comments POCT URINE DIPSTICK Routine 08/24/2013 2 :45 PM EST Frequent urination documented in this encounter Results * (ABNORMAL) [...] reviewed by the attending Reji Adams MD IMG CT ORDERABLES * POCT urine dipstick (08/24/2013 2:45 PM EST) POC Sp [place] 1.020 1.002 - 1.030 POC pH, UA [...] Blood, UA neg Negative - Negative denise/uL 08/24/2013 2:45 PM EST Reji Adams MD POINT OF CARE TEST O RDERABLES documented in this encounter Visit Diagnoses Diagnosis Abdominal discomfort- Primary Abdominal pain, unspecified site Frequent urination Urinary frequency Abdominal discomfort Abdominal pain, unspecified site documented in this encounter Care Teams Voice Network Engineer Relationship Specialty Start Date End Date Reji Adams MD [facility] DR GENERAL [place] [address] PCP - General 02/12/12 06/27/15 documented as of this encounter
--- OUTSIDE RECORDS SUMMARY | 2024-07-09 11:20 | XMS_ITS | Encounter Summary ---
Author Organization [facility] [place] [address] Care Team Providers Care Emergency Veterinarian Name Role Phone Reji Adams MD Primary Care Provider [phone] Encounter Details Date Type Department Care Team (Late st Contact Info) Description 11/10/2012 Telephone [place] [address] Thien Broussard MD [facility] [place] [address] Social History Tobacco Use Types Packs/Day Years [...] Office [place] [address] Charline Ziegler MD [facility] [place] [address] documented as of this encounter Visit Diagnoses Not on filedocumented in this encounter Care Teams Emergency Veterinarian Relationship Specialty Start Date End Date Reji Adams MD [facility] GENERAL [place] [address] PCP - General 02/12/12 06/27/15 documented as of this encounter
--- OUTSIDE RECORDS SUMMARY | 2024-07-09 11:20 | XMS_ITS | Encounter Summary ---
Author Organization [facility] [place] [address] Care Team Providers Care Scanning Manager Name Role Phone Reji Adams MD Primary Care Provider [phone] Reason for Visit * Reason Onset Date Comments Labs Only 08/23/2013 Lab order for an nual physcial in October 2013 Encounter Details Date Type Department Care Team (Late st Contact Info) Description 08/23/2013 Telephone Internal Medicine at [address] [address] Reji Adams MD [facility] GENER[facility] [place] [address] Labs Only (Lab order for annual physcial in October 2013) Social History Tobacco Use Types Packs/Day Years [...] encounter Miscellaneous Notes * Addendum Note - Dong Holbrook RN - 10/31/2014 4:30 PM EDTAddended by: DONG HOLBROOK on: 10/31/2014 04:30 PM Modules accepted: Orders * Telephone Encounter - Maria T Partida - 08/23/2013 4:32 PM EST EPE lab order request. Pt scheduled for annual on 11/19/13 will have fasting labs done at [facility] one week prior. Pt is on wait list for sooner appointment. documented in this encounter Plan of Treatment Upcoming Encounters Date Type Department Care Team (Late st Contact Info) Description 12/15/2024 11:30 AM EDT Office Visit [place] [address] Charline Ziegler MD [facility] [place] [address] documented as of this encounter Visit Diagnoses Diagnosis Hyperlipidemia Other and unspecified hyperlipidemia documented in this encounter Care Teams Scanning Manager Relationship Specialty Start Date End Date Reji Adams MD [facility] GENER[facility] [place] [address] PCP - General 02/12/12 06/27/15 documented as of this encounter
--- OUTSIDE RECORDS SUMMARY | 2024-07-09 11:20 | XMS_ITS | Encounter Summary ---
Author Organization [facility] Address [facility] [place] [address] Care Team Providers Care Glass Cleaning Machine Tender Name Role Phone Reji Adams MD Primary Care Provider [phone] Encounter Details Date Type Department Care Team (Latest Contact Info) Description 09/07/2013 1:33 PM EST - 09/07/2013 6:19 PM EST Hospital Encounter [place] [address] Ximena Mclaughlin MD [facility] [place] [address] Discharge Disposition: Home Social History Tobacco Use [...] you need to be checked. Friday-Friday Clinic [phone] 8a-5p Same Day Endo [phone] 7a-8p Otherwise contact [phone] and ask to speak to the contract associate manager mold construction supervisor Follow up care is a enrique part [...] 81 mg by mouth daily. 08/02/2014 Saw [place] 500 mg capsule Take 500 mg by [...] 11:30 AM EDT Office [place] [address] Charline Ziegler MD [facility] [place] [place] [address] documented as of this encounter Procedures Procedure [...] MD PATHOLOGY/CYTOLOGY O [place] Performing Organization Address [facility] de Phone Number [facility] [place] * Specimen to Pathology (surgical or derm) (09/07/2013 3:43 PM EST) AP Specimen 09/07/2013 3:43 PM EST 09/07/2013 3:43 PM EST Narrative CERNER MILLENNIUM - 09/07/2013 3:43 PM EST Specimen requisition ordered. ??Separate Pathology report to follow Ximena Mclaughlin MD PATHOLOGY/CYTOLOGY O [place] Performing Organization Address [facility] Co de Phone Number [facility] * Specimen to Pathology (surgical or derm) (09/07/2013 3:43 PM EST) AP Specimen 09/07/2013 3:43 PM EST 09/07/2013 3:43 PM EST Narrative CERNER MILLENNIUM - 09/07/2013 3:43 PM EST Specimen requisition ordered. ??Separate Pathology report to follow Ximena Mclaughlin MD PATHOLOGY/CYTOLOGY O LA [facility] * Specimen to Pathology (surgical or derm) (09/07/2013 3:43 PM EST) AP Specimen 09/07/2013 3:43 PM EST 09/07/2013 3:43 PM EST Narrative [facility] [place] - 09/07/2013 3:43 PM EST Specimen requisition ordered. ??Separate Pathology report to follow Ximena Mclaughlin MD PATHOLOGY/CYTOLOGY O LA [facility] * Surgical Pathology Report (09/07/2013 3:42 PM EST) Final Diagnosis ? [facility] ? Provider: ?? XIMENA MCLAUGHLIN ?Pt. Name: ?? COLE, KEN Quiñonez ? Acc #: ?[id number] ?Pt. ? Col Date: ?? 09/07/2013 ? [...] Labeled/Fixativ e: Descending colon biopsy, formalin. ? [facility] ? Provider: ?? XIMENA MCLAUGHLIN ?Pt. Name: ?? KEN COLE ? Acc #: ?[id number] ?Pt. ? Col Date: ?? 09/07/2013 ? [...] Diagnosis: ? Same 09/09/2013 5:27 PM EST [facility] GI Biopsy 09/07/2013 3:42 PM EST 09/07/2013 3:42 PM EST GI Biopsy 09/07/2013 3:42 PM EST 09/07/2013 3:42 PM EST GI Biopsy 09/07/2013 3:42 PM EST 09/07/2013 3:42 PM EST GI Biopsy 09/07/2013 3:42 PM EST 09/07/2013 3:42 PM EST Ximena Mclaughlin MD PATHOLOGY/CYTOLOGY O RDERABLES Performing Organization Address [facility] Co de Phone Number [facility] [place] [address] * COLONOSCOPY (09/07/2013 2:53 PM EST) COLONOSCOPY [facility] Patient Name: Ken Cole ? Procedure Date: 09/07/2013 2:53 PM ? Date of : 1945 ? Age: 67 ? Order #: [id number] ? Procedure: ? Colonoscopy Indications: ? RUQ pain. Ct abdomen showed a n 8cm ? thickened terminal ileum with ? mesenteric stranding Providers: ? Seth Perea, ? RN, Pia Lopez, Aerobics Instructor Referring : ?Reji Adams MD Medicines: ? Midazolam 3 [...] ? movements soft and regular ? Ximena Ford Deepakurmila Ximena Conrad Brittanie, 09/07/2013 3:51 PM This report has [...] RN) documented in this encounter Care Teams Glass Cleaning Machine Tender Relationship Specialty Start Date End Date Reji Adams MD [facility] [place] [address] PCP - General 02/12/12 06/27/15 documented as of this encounter
--- OUTSIDE RECORDS SUMMARY | 2024-07-09 11:20 | XMS_ITS | Encounter Summary ---
Author Organization [place] [address] Care Team Providers Care Timber Management Technician Name Role Phone Reji Adams MD Primary Care Provider [phone] Encounter Details Date Type Department Care Team (Late st Contact Info) Description 11/19/2012 Telephone Internal Medicine at [address] [address] Beckie Holbrook RN Social History Tobacco Use Types Packs/Day [...] Telephone Encounter - Beckie Holbrook RN - 11/19/2012 4:33 PM EDT TC from the patient: states that he is having signigicant side effects from taking the Flagyl. Jittery, exhausted but unable to sleep and feeling very hot. States that he stopped it and wondering if anything else can be prescribed. Discussed with Dr. Adams who changed to Clindamycin. Patient also was given the wrong number of Cipro and was corrected. documented in this encounter Plan of Treatment Upcoming Encounters Date Type Department Care Team (Late st Contact Info) Description 12/15/2024 11:30 AM EDT Office [place] [address] [facility] [place] [address] documented as of this encounter Visit Diagnoses Not on filedocumented in this encounter Care Teams Timber Management Technician Relationship Specialty Start Date End Date Reji Adams MD [facility] GENERAL [place] [address] PCP - General 02/12/12 06/27/15 documented as of this encounter
--- OUTSIDE RECORDS SUMMARY | 2024-07-09 11:20 | XMS_ITS | Encounter Summary ---
Author Organization [facility] [place] [address] Care Team Providers Care Product Expert Name Role Phone Reji Adams MD Primary Care Provider [phone] Reason for Visit * Reason Comments Other Encounter Details Date Type Department Care Team (Late st Contact Info) Description 09/03/2013 Telephone Internal Medicine at [address] [address] Reji Adams MD [facility] [place] [address] Social History Tobacco Use Types Packs/Day Years [...] Telephone Encounter - Reji Adams MD - 09/03/2013 9:46 AM EST Called pt to discuss ultrasound. No answer. Left message to return call. All benign findings including epididymal cysts and hydroceles. No mass lesions. documented in this encounter Plan of Treatment Upcoming Encounters Date Type Department Care Team (Late st Contact Info) Description 12/15/2024 11:30 AM EDT Office [place] [address] Charline Ziegler MD [facility] [place] [address] documented as of this encounter Visit Diagnoses Not on filedocumented in this encounter Care Teams Product Expert Relationship Specialty Start Date End Date Reji Adams MD [facility] [place] [address] PCP - General 02/12/12 06/27/15 documented as of this encounter
--- OUTSIDE RECORDS SUMMARY | 2024-07-09 11:20 | XMS_ITS | Encounter Summary ---
Author Organization [facility] Address [facility] [place] [address] Care Team Providers Care Contract Negotiation Specialist Name Role Phone Reji Adams MD Primary Care Provider [phone] Reason for Visit * Reason Onset Date Comments Insomnia 04/16/2013 unable to sleep normally since Varicella vacine on 04/12/13 Encounter Details Date Type Department Care Team (Late st Contact Info) Description 04/16/2013 Telephone Internal Medicine at [address] [address] Reji Adams MD [facility] GENERAL [place] [address] Insomnia (unable to sleep normally since Varicella vacine on 04/12/13) Social History Tobacco Use Types Packs/Day Years [...] Telephone Encounter - Layla Lofton RN - 04/16/2013 3:15 PM EDT TC from pt - concerned that he has been unable to sleep even after taking Flexeril Pt stated that he had a shingles shot on Friday. Since the immunization he has had very disturbed sleep. I've only been able to get about 3 hours sleep each night, even after taking Flexeril Pt upset because he has to work this evening and is very tired from lack of sleep. I feel like I'm wired. Pt does not wish to take Ambien, but would like to be able to sleep. He uses [facility] for any prescription medications. Pt stated that the site of injection is still somewhat red and swollen, but no worse than it has been. Concerns communicated to Dr Adams via In Basket. Response from Dr Adams It may be related to the vaccine, but should resolve over the next week. No new orders at this time. TC to pt - advised of response from Dr Adams. Pt stated that he may have been a little dehydrated also, and that may have contributed to his insomnia. Pt has Benadryl at home and may try a dose to help him sleep. documented in this encounter Plan of Treatment Upcoming Encounters Date Type Department Care Team (Late st Contact Info) Description 12/15/2024 11:30 AM EDT Office [place] [address] Charline Ziegler MD [facility] [place] [address] documented as of this encounter Visit Diagnoses Not on filedocumented in this encounter Care Teams Contract Negotiation Specialist Relationship Specialty Start Date End Date Reji Adams MD [facility] GENERAL [place] [address] PCP - General 02/12/12 06/27/15 documented as of this encounter
--- OUTSIDE RECORDS SUMMARY | 2024-07-09 11:20 | XMS_ITS | Encounter Summary ---
Author Organization [facility] [place] [address] Care Team Providers Care Shelf Stocker Name Role Phone Reji Adams MD Primary Care Provider [phone] Reason for Visit * Reason Onset Date Comments Referral 01/20/2013 Encounter Details Date Type Department Care Team (Late st Contact Info) Description 01/20/2013 Telephone Internal Medicine at [address] [address] Reji Adams MD [facility] GENER[facility] [place] [address] Referral Social History Tobacco Use Types Packs/Day [...] Telephone Encounter - Reji Adams MD - 01/20/2013 1:43 PM EDT Returned call to patient and he states that would like to try counseling to see if he can get better from the depression standpoint. Has not started wellbutrin because he states he is afraid of anti-depressant medications and would like to try counseling first. Discussed referral to [facility] but pt would like to start fairly soon and often takes a while to get into [facility] psychiatry. Will get him number for Thalia Rodas as pt prefers females to talk to. * Telephone Encounter - Loulou Rivas - 01/20/2013 12:00 PM EDT PT IS CALLING TO SPEAK WITH YOU STATING HAVING PROBLEMS WANTED TO GO OVER WITH YOU. NOT SURE WHAT DEPT HE NEEDS TO BE REFERRED TO BUT YOU HAVE TALKED ABOUT IT WITH HIM. PLEASE CALL HIM AT [phone]. THANKS documented in this encounter Plan of Treatment Upcoming Encounters Date Type Department Care Team (Late st Contact Info) Description 12/15/2024 11:30 AM EDT Office [place] [address] Charline Ziegler MD [facility] [place] [address] documented as of this encounter Visit Diagnoses Diagnosis Depression- Primary Depressive disorder, not elsewhere classified documented in this encounter Care Teams Shelf Stocker Relationship Specialty Start Date End Date Reji Adams MD [facility] [place] [address] PCP - General 02/12/12 06/27/15 documented as of this encounter
--- OUTSIDE RECORDS SUMMARY | 2024-07-09 11:20 | XMS_ITS | Encounter Summary ---
Author Organization [facility] [place] [address] Care Team Providers Care Superintendent Job Name Role Phone Reji Adams MD Primary Care Provider [phone] Reason for Visit * Reason Comments Neck Pain Encounter Details Date Type Department Care Team (Late st Contact Info) Description 09/01/2012 9:00 AM EST Office [place] [address] Rima Michaud, PT [facility] Cyndi Valencia APRN [facility] [place] [address] Reji Adams MD [facility] [place] [address] Neck pain (Primary Dx) Discharge Disposition: Home [...] Progress Notes * Rima Michaud, PT - 09/02/2012 10:00 AM EST Ken Mckeon was referred to [facility] for a physical therapy consult at the request of Cyndi Valencia APRN. He was seen with the expectations to see if there is anything that can be done from an exercise perspective to ease the pain and improve his ability to function. History of Present Illness: Mr. Mckeon reports 6-7 months ago without incident or trauma he experienced insidious onset of neck pain. The symptoms have steadily worsened over time and are now interfering with his ability to function. Past treatments directed to the neck have included application of aliniment to the neck, Aleve, and chiropractic adjustments. The adjustments significantly worsened the pain. He notes Aleve and using the ligament does not provide him with significant pain relief. Herecently met with Cyndi Valencia APRN and was given the Treat Your Own Neck booklet which he has read. Unfortunately, he began to do the cervical retraction exercise which the the cervical retraction e xercise which seems to have worsened the pain. A x-ray of the cervical spine has revealed multilevel degenerative disc changes with foraminal narrowing at C3-C4 on the left. Mr. Mckeon currently complains of neck pain radiating to bilateral shoulders with intermittent occipital headaches and radiation down the left anterior arm to the medial forearm to the palm. The pain is rated 1/10 at its least and 7/10 at its worst. Symptoms worsen with sitting, lying on the left side, turning, looking down, and looking up. Symptoms ease temporarily when taking Aleve. Sleep is disturbed but this is unrelated to the neck pain. Mr. Mckeon's functional self care goal includes being able to turn and look over the shoulder. 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 He uses smokeless tobacco, drinks alcohol rarely, and is not involved in a structured cardiovascular exercise program. [facility] reports enjoying archery, going on the occasional walk, and kayaking during the summer months. Physical Exam: Mr. Mckeon is a pleasant 66 y.o. male who moves about in the exam room without difficulty while keeping the neck stiffly in midline at all times and appears comfortable while seated. Sitting posture is poor and standing posture is good. Examination of the spine in the standing positionreveals a protruded head posture. Active range of motion of bilateral shoulders is full and painless. Active range of motion of the cervical spine is limited to 50 degrees flexion, 20 degrees extension, 40 degrees right rotation, 45 degrees left rotation, 20 degrees bilateral side bending. Spurlingmaneuver to the left and right does not reproduce the upper extremity symptoms. Slouched sitting wor sens the pain while sitting fully erect lessens the pain. Repeated movement testing of the cervicalspine reveals a clear directional preference toward extension. Physical Therapy Assessment: Mr. Mckeon is a retired man with a history of gradually worsening neck pain which has made it difficult for him to turn and look up. The physical exam today is significant for marked loss of cervical range of motion, poor posture, and a directional preference toward extension with movement testing. The history and exam is consistent with mechanical neck pain in the context of spondylosis. I believe that these deficits can improve with physical therapy treatments directed to the neck consisting of instruction in mechanical self-care, posture correction of the seated and lying position, and self mobilization exercises. Mr. Mckeon has a good rehabilitation potential and I anticipate to meet with him for 3-4 additional visits over the next 3-4 weeks. Treatment Plan: The natural history of mechanical neck pain in the context of spondylosis and rational for exercise based treatment was reviewed. Mr. Mckeon was given a home exercise program consistingof self SNAG into extension 6-8 times per day. Along with the prescribed exercises, we discussed the principles of symptom self monitoring and posture correction of the seated and lying position. He will call with any questions, concerns, or if the pain worsens. Mr. Mckeon will return to [facility] for a follow up appointment in 2 days time with the hope that he is ready to progress his home exercise program. 45 minutes were spent interviewing, assessing, and instructing Ken Mckeon in a home exercise program. documented in this encounter Miscellaneous Notes * Miscellaneous - Provider, Scanning - 02/17/2013 9:59 AM EDT documented in this encounter Plan of Treatment Upcoming Encounters Date Type Department Care Team (Late st Contact Info) Description 12/15/2024 11:30 AM EDT Office [place] [address] Charline Ziegler MD [facility] [place] [address] documented as of this encounter Visit Diagnoses Diagnosis Neck pain- Primary Cervicalgia documented in this encounter Care Teams Superintendent Job Relationship Specialty Start Date End Date Reji Adams MD [facility] [place] [address] PCP - General 02/12/12 06/27/15 documented as of this encounter
--- OUTSIDE RECORDS SUMMARY | 2024-07-09 11:20 | XMS_ITS | Encounter Summary ---
Author Organization [facility] Address [facility] [place] [address] Care Team Providers Care Chronic Care Nurse Name Role Phone Reji Adams MD Primary Care Provider [phone] Reason for Visit * Reason Comments Fatigue still has issue Follow-up medication Encounter Details Date Type Department Care Team (Late st Contact Info) Description 12/17/2012 2:45 PM EDT Follow-Up Internal Medicine at [address] [address] Reji Adams MD [facility] [place] [address] Fatigue (Primary Dx) Discharge Disposition: Home Social History [...] Sign Reading Time Taken Comments Blood Pressure 114/68 12/17/2012 2:51 PM EDT Pulse 70 12/17/2012 2:51 PM EDT Temperature 36.9 ??C (98.4 ??F) 12/17/2012 2:51 PM ED T Respiratory Rate - - Oxygen Saturation 97% 12/17/2012 2:51 PM EDT Inhaled Oxygen Concentration - - Weight 101.2 kg (223 lb) 12/17/2012 2:51 PM EDT Height 180.3 cm (5' 11) 12/17/2012 2:51 PM EDT Body Mass Index 31.1 12/17/2012 2:51 PM EDT documented in this encounter Progress Notes * Reji Adams MD - 12/17/2012 3:21 PM EDT ESTABLISHED PATIENT VISIT I. HISTORY a. Reason(s) for Visit: Ken Mckeon 67 y.o. male who presents today due to complaint(s) of: Chief Complaint Patient presents with ??? Fatigue still has issue ??? Follow-up medication b. History of Present Illness:[] Pt returns for f/u frequent urination. Originally seen on 11/16 and was having LLQ pain and tenderness on exam. Was treated with clindamycin and cipro (did not tolerate flagyl). Abd pain improved but still having frequent urination. Interestingly his erections improved on cipro. [place] that perhaps had prostatitis so extended treatment with cipro. Pt returns today because sxs have not improved. States stopped cipro after 3 days because was feeling very tired and worsened. Urinating has improved atthis point. c. Review of Systems: Constitutional - no [...] PMH Patient Active Problem List Diagnoses ??? Bilateral shoulder pain ??? Cervical radiculopathy [...] beer per week II. PHYSICAL EXAM: BP 114/68 Pulse 70 Temp(Src) 36.9 ??C (98.4 ??F) (Oral) Ht 180.3 cm (5' 11) Wt 101.152 kg (223 lb) BMI 31.10 kg/m2 SpO2 97% General - No acute distress, conversing without difficulty. Eyes - EOMI. No scleral icterus Neck - No lymphadenopathy, supple, no masses Extremities - No clubbing, cyanosis or edema. III. ASSESSMENT/PLAN:Ken Mckeon 67 y.o. male presenting with ongoing fatigue despite fairly extensive workup. Will check testosterone at this point. Ken was seen today for fatigue and follow-up . Diagnoses and associated orders for this visit: Fatigue - Testosterone, total; Future F/u pending results Meds reconciled * Azeem Romero - 12/17/2012 3:01 PM EDT Medical Student Geriatric Ambulatory Note CC: Chief Complaint Patient presents with ??? Fatigue still has issue ??? Follow-up medication S: Ken Mckeon is a 67 y.o. male Had completed a 10 day course of clinda and cipro for urinary freq, then took 3 days worth of the low dose cipro (which he was put on for concern of prostatitis) but felt lousy on the lower dose. [place] more tired while taking the low dose. Says energy levels are still a 4/10 if 10 is the full potential. Taking Klonopin 5-6x/month. Mood: not tip top. Not as interested in some his activities, says could be part of fatigue. Activity is enjoyable but it makes him more tired. Endorses difficulties focusing and concentrating, although states these are chronic. No feelings of guilt. Some nights no problem with sleep, other nights he can't fall asleep. At times he wakes up early but can usually fall back asleep. Noticed a decrease in appetite in the last year or so. He believes its due to low testosterone. He denies any sexual difficulties. No weight loss. Endorses night sweats 3-4x/month. No blood in the stool. Chews tobacco - 3 cans/week. 40 years. EtOH: 2 beers/month. Patient Active Problem List Diagnoses Code ??? 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 Cataract extraction status of left eye V45.61 ??? OA (osteoarthritis) of knee 715.96 ??? Lightheadedness 780.4 ??? 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 Anxiety 300.00 ??? Neck pain 723.1 ??? Insomnia 780.52 ??? Cervical radiculopathy 723.4 ??? Bilateral shoulder pain 719.41 Medications: Current Outpatient Prescriptions on File Prior to Visit Medication Sig Dispense Refill ??? clonAZEpam (KLONOPIN) 0.5 mg tablet Take 1 tablet by mouth 2 times daily as needed for Anxiety.60 tablet 0 ??? aspirin 81 mg EC tablet Take 81 mg by mouth daily as needed. ??? multivitamin (THERAGRAN) tablet Take 1 tablet by mouth daily. ??? Saw [place] 500 mg capsule Take 500 mg by mouth daily. ??? Mavis Extract 500 mg Cap Take 1 capsule by mouth daily. ??? naproxen sodium (ALEVE) 220 mg tablet Take 220 mg by mouth as needed. O: Filed Vitals: 12/17/12 1451 BP: 114/68 Pulse: 70 Temp: 36.9 ??C (98.4 ??F) TempSrc: Oral Height: 180.3 cm (5' 11) Weight: 101.152 kg (223 lb) SpO2: 97% PE: Gen: NAD, pleasant WDWN male, appearing stated age HEENT: normocephalic, atraumatic, PERRL, MMM, poor dentition, roughened thickened mucosa on the lower interior lip, no LAD CV: RRR, no mrg, no JVD Pulm: CTAB, no wrr, normal effort Abd: Soft, normoactive BS, NT, ND, no hepatosplenomegaly Ext: WWP, DP/PT 2+, no skin breakdown A/P: Ken Mckeon is a 67 y.o. male who presents for persistent fatigue. I think a large part of his fatigue is an element of depression as he endorses a significant number of SIGECAPS, however we still haven't checked a testosterone given the risks of replacement. His last TSH was normal, and there was no anemia a year ago. He had a colo under 5 years ago and denies any rectal bleeding. His urinary symptoms seem to have resolved for the time being. - check testosterone level Azeem Romero MS IV documented in this encounter Plan of Treatment Upcoming Encounters Date Type Department Care Team (Late st Contact Info) Description 12/15/2024 11:30 AM EDT Office Visit Gastroenterology at [facility] [place] [phone] Charline Ziegler MD [facility] [place] [address] documented as of this encounter Results * Testosterone, total (12/29/2012 8:01 AM EDT) [facility] Testosterone 4.65 2.80 - 8.00 ng/mL [facility] Comment: Please note: Updated Reference Ranges 11/14/2010. [...] Adams MD CHEMISTRY ORDERABLES Performing Organization Address City/State/[facility] Phone Number [facility] documented in this encounter Visit Diagnoses Diagnosis Fatigue- Primary Other malaise and fatigue documented in this encounter Care Teams Chronic Care Nurse Relationship Specialty Start Date End Date Reji Adams MD [facility] [place] [address] PCP - General 02/12/12 06/27/15 documented as of this encounter
--- OUTSIDE RECORDS SUMMARY | 2024-07-09 11:20 | XMS_ITS | Encounter Summary ---
Author Organization [facility]ly [facility] Address [facility] [place] [address] Care Team Providers Care Icicle Machine Operator Name Role Phone Reji Newberry MD Primary Care Provider [phone] Encounter Details Date Type Department Care Team (Latest Contact Info) Description 09/02/2013 3:37 PM EST - 09/02/2013 11:59 PM [facility] Hospital En[place] [address] CLINIC, Reji Juan MD [facility] GENERAL [place] [address] scan, pelvis Discharge Disposition: Home Social History Tobacco Use [...] 81 mg by mouth daily. 08/02/2014 Saw [place] 500 mg capsule Take 500 mg by [...] 11:30 AM EDT Office [place] [address] Charline Ziegler MD [facility] [place] [address] documented as of this encounter Procedures Procedure Name Priority Date/Time Associated Diagnosis Comments US SCROTUM Routine 09/02/2013 4:[address] scan, pelvis documented in this encounter Results * US scrotum (09/02/2013 4:14 PM EST) Anatomical Region Laterality Modality Pelvis Ultrasound 09/02/2013 4:14 PM EST Narrative 09/02/2013 4:42 PM EST ?Scrotal ? (Signed Final 09/02/2013 04:41 pm) Patient Info ID: ? [id number] ? : ??[birth year] (67 yrs) Name: ? KEN COLE ?Visit Date: 09/02/2013 04:10 pm Performed By Performed By: ?David Lubin RDMS Associate: ? Kaylyn Wharton MD Attending: ? Silvia Wolff MD Referred By: ? REJI NEWBERRY MD Service(s) Provided [facility] - Ultrasound Scrotum and Contents with ?[id number], [id number] Vascular - [id number], [id number] Indications calcifications seen on CT. Further characterization [...] to call if you have any questions. ?Silvia Wolff MD Electronically Signed Final Report ?? 09/02/2013 04:41 pm Film and interpretation reviewed by the attending Procedure Note Silvia Wolff MD - 09/02/2013 Scrotal (Signed Final 09/02/2013 04:41 pm) Patient Info ID: [id number] : [birth year] (67 yrs) Name: KEN COLE Visit Date: 09/02/2013 04:10 pm Performed By Performed By: David Lubin RDMS Associate: Kaylyn Wharton MD Attending: Silvia Wolff MD. Referred By: REJI NEWBERRY MD Service(s) Provided [facility] - Ultrasound Scrotum and Contents with [id number], [id number] Vascular - [id number], [id number] Indications calcifications seen on CT. Further characterization [...] in this encounter Visit Diagnoses Diagnosis Abnormal CT scan, pelvis Nonspecific (abnormal) findings on radiological and other examination of abdominal area, including retroperitoneum documented in this encounter Care Teams Icicle Machine Operator Relationship Specialty Start Date End Date Reji Newberry MD [facility] GENERAL [place] [address] PCP - General 02/12/12 06/27/15 documented as of this encounter
--- OUTSIDE RECORDS SUMMARY | 2024-07-09 11:20 | XMS_ITS | Encounter Summary ---
Author Organization [facility] [place] [address] Care Team Providers Care Councilor Name Role Phone Reji Adams MD Primary Care Provider [phone] Encounter Details Date Type Department Care Team (Late st Contact Info) Description 09/22/2012 [facility] [place] [phone] Kailey Bains, SEALING AND CANCELING MACHINE OPERATOR Social History Tobacco Use Types Packs/Day Years [...] 11:30 AM EDT Office [place] [phone] Charline Ziegler MD [facility] [place] [address] documented as of this encounter Visit Diagnoses Not on filedocumented in this encounter Care Teams Councilor Relationship Specialty Start Date End Date Reji Adams MD [facility] GENERAL [place] [address] PCP - General 02/12/12 06/27/15 documented as of this encounter
--- OUTSIDE RECORDS SUMMARY | 2024-07-09 11:21 | XMS_ITS | Encounter Summary ---
Author Organization Formerly [facility] [address] [facility] [place] [address] Care Team Providers Care Infirmary Attendant Name Role Phone Reji Adams MD Primary Care Provider [phone] Reason for Visit * Reason Comments Fatigue Dizziness started on friday, o n and off , not all the time Encounter Details Date Type Department Care Team (Late st Contact Info) Description 02/13/2012 8:20 AM EDT Office Visit Internal Medicine at [address] [address] Reji Adams MD [facility] GENERAL [place] [address] Lightheadedness (Primary Dx) Discharge Disposition: Home Social History Tobacco Use Types Packs/Day Years Used Date Smoking Tobacco: Never Smokeless Tobacco: Current Chew Comments:daily Alcohol Use Standard Drinks/Week Comments Not Asked 0 (1 standard drink = 0.6 oz pur e alcohol) Sex and Gender Information Value Date Recorded Sex Assigned at Choose not to disclose 02/2023 8:26 AM EDT Gender Identity Not on file Sexual Orientation Choose not to disclose 2022 8:26 AM EDT documented as of this encounter Last Filed Vital Signs Vital Sign Reading Time Taken Comments Blood Pressure 117/75 02/13/2012 8:19 AM EDT Pulse 66 02/13/2012 8:19 AM EDT Temperature 36.3 ??C (97.3 ??F) 02/13/2012 8:19 AM ED T Respiratory Rate - - Oxygen Saturation 99% 02/13/2012 8:19 AM EDT Inhaled Oxygen Concentration - - Weight 97.3 kg (214 lb 9.6 oz) 02/13/2012 8:19 A M EDT Height - - Body Mass Index 29.93 11/20/2011 1:53 PM EDT documented in this encounter Patient Instructions * Patient Instructions* Reji Adams MD - 02/13/2012 8:55 AM EDT Wear compression stockings daily Continue to push fluids and liberalize salt intake documented in this encounter Progress Notes * Reji Adams MD - 02/13/2012 8:54 AM EDT ESTABLISHED PATIENT VISIT I. HISTORY a. Reason(s) for Visit: Ken Mckeon 66 y.o. male who presents today due to complaint(s) of: Chief Complaint Patient presents with ??? Fatigue ??? Dizziness started on friday, on and off , not all the time b. History of Present Illness:[] Pt seen by vascular surgery on 11/06 for lightheadedness with standing and at that point had sxs forabout 1 year. Had neg MRA head/neck and neg carotid dopplers. Vascular did feel should have varicose veins taken care of but did not feel lightheadedness was vascular in origin. States had been going fairly good but then starting 4 days ago had some lightheadedness. Also had no energy. Will off and on for two days. Has been doing okay since then. Started drinking more fluidsand then started feeling a little better. Room does not spin with this. Will feel a little lightheaded. States did have some blood work in [place] this year and said it was fairly normal. c. Review of Systems: Constitutional - no [...] PMH Patient Active Problem List Diagnoses ??? Lightheadedness ??? Varicose veins of legs ??? OA (osteoarthritis) of knee right ??? Cataract extraction status of left eye ??? Status post total knee replacement TKR Right knee in 2007 Soc: History Substance Use Topics ??? Smoking status: Never Smoker ??? Smokeless tobacco: Current User Types: Chew Comment: daily ??? Alcohol Use: Not on file II. PHYSICAL EXAM: BP 117/75 Pulse 66 Temp 36.3 ??C (97.3 ??F) Wt 97.342 kg (214 lb 9.6 oz) SpO2 99% General - No acute distress, conversing without difficulty. ENT - oropharynx without lesions. Eyes - EOMI. No scleral icterus Neck - No lymphadenopathy, supple, no masses Lungs - Clear to auscultation Heart - RRR, S1,S2, no murmur, gallop or rub. Extremities - No clubbing, cyanosis. + non-pitting edema bilat III. ASSESSMENT/PLAN:Ken Mckeon 66 y.o. male presenting with lightheadedness that appears to beorthostatic in nature. Pt has a long hx of this problems with a neg workup to date. Given that is responds to fluids feel is a combination of relative hypovolemia worsened by significant venous insufficiency. Will finish workup but feel less likely. Do not want to use florinef or something like that because worried would make his edema worse. Ken was seen today for fatigue and dizziness. Diagnoses and associated orders for this visit: Lightheadedness - POCT urine dipstick - Cortisol - Basic Metabolic Panel (non-fasting) Patient Instructions Wear compression stockings daily Continue to push fluids and liberalize salt intake F/u prn Addendum: U/a neg for protein Meds reconciled documented in this encounter Plan of Treatment Upcoming Encounters Date Type Department Care Team (Late st Contact Info) Description 12/15/2024 11:30 AM EDT Office [place] [phone] Charline Ziegler MD [facility] [id number] documented as of this encounter Procedures Procedure Name Priority Date/Time Associated Diagnosis Comments CORTISOL Routine 02/13/2012 9:17 AM EDT Lightheadedness BASIC METABOLIC PANEL Routine 02/13/2012 9:17 AM EDT Lightheadedness POCT URINE DIPSTICK Routine 02/13/2012 9 :15 AM EDT Lightheadedness documented in this encounter Results * Basic Metabolic Panel (non-fasting) (02/13/2012 9:17 AM EDT) Pathologist [facility] Glucose 93 60 - 199 mg/dL [facility] Comment:Diabetes: >=200 mg/d L plus symptoms Blood Urea Nitrogen 15 10 - 20 mg/dL [facility] Creatinine 1.00 0.80 - 1.50 mg/dL [facility] Comment: Please note that the pediatric reference intervals supplied above were not validated at [facility]. Results from pediatric patients should be interpreted [...] Laboratory if there are any questions. Chloride 106 98 - 107 mmol/L [facility] Carbon Dioxide 30 22 - 31 mmol/L [facility] Anion Gap 5 5 - 15 mmol/L [facility] Calcium 9.4 8.5 - 10.5 mg/dL [facility] Est Glomerular Filtration Rate >60 >=60 [facility] Comment: The National Kidney Disease Education Program (NKDEP) has recommended all laboratories report estimated GFR (eGFR) along with plasma creatinine measurements to assist you with recognition of early kidney disease. Caveats: ??Plasma creatinine should be at steady-state (unchanged within the past week). For patients multiply eGFR by 1.2. The MDRD equation was developed using patients between the ages of 18 and 70 years. ?? The MDRD equation has not been validated for patients < 18 years of age and should not be used to assess renal function in the pediatric population. ??The MDRD eGFR equation will also overestimate the true GFR of patients above the age of 70. ??This overestimation is variable but increases with age. At present, NKDEP does NOT recommend using the MDRD equation for drug dosing purposes and pharmacists should continue to use their current dosing methods. In addition, numerical eGFR values greater than 60 ml/min/1.73 square meters should be treated as > 60, and not an exact number due to greater inaccuracies at these higher values. Per NKDEP, they classify normal renal function as any GFR >60ml/min/1.73 square meters; chronic kidney disease when GFR <60, and renal failure when GFR <15. ??This calculation may not be valid for patients with atypical muscle mass (very lean or obese), acute renal failure, and in patients with diabetic kidney disease. References: http://nkdep.nih.gov/resources/NKDEP_Suggestn4Labs_0606_508.pdf http://www.kidney.org/professionals/kls/pdf/faq_gfr.pdf Krystyna K, Edy NA, Nathaniel AK, Balta TS, Kinjal AD, Nic MEGAN. Relative performance of the MDRD and CKD-EPI equations for estimating glomerular filtration rate among patients with varied clinical presentations. Clin J Am Soc Nephrol;6:1963-72. Blood specimen (specimen) 02/13/2012 9:17 AM EDT 02/13/2012 12:48 PM EDT Narrative Resulting Agency Comment Spec In Lab Reji Adams MD CHEMISTRY ORDERABLES [facility] * Cortisol (02/13/2012 9:17 AM EDT) Cortisol 8.3 mcg/dL [facility] Comment: Reference ranges: ??AM (7-10am): ??6.2-19.4 mcg/dL ??PM (4-8pm): ??2.3-12.3 mcg/dL Blood specimen (specimen) 02/13/2012 9:17 AM EDT 02/13/2012 12:48 PM EDT Narrative Resulting Agency Comment Spec In Lab Reji Adams MD CHEMISTRY ORDERABLES [facility] * POCT urine dipstick (02/13/2012 9:15 AM EDT) POC Sp [place] 1.015 1.002 - 1.030 POC pH, UA [...] Blood, UA neg Negative - Negative denise/uL URINE SPECIMEN OBTAINED BY CLEAN CATCH PROCEDURE / Unknown 02/13/2012 9:15 AM EDT Reji Adams MD POINT OF CARE TEST O RDERABLES documented in this encounter Visit Diagnoses Diagnosis Lightheadedness- Primary Dizziness and giddiness documented in this encounter Care Teams Infirmary Attendant Relationship Specialty Start Date End Date Reji Adams MD [facility] [address] [place] [address] PCP - General 02/12/12 06/27/15 documented as of this encounter
--- OUTSIDE RECORDS SUMMARY | 2024-07-09 11:21 | XMS_ITS | Encounter Summary ---
Author Organization [facility] Address [facility] [place] [address] Care Team Providers Care Tour Production Supervisor Name Role Phone Ron Burns MD Primary Care Provider [phone] Reason for Visit * Reason Comments Shortness of Breath Encounter Details Date Type Department Care Team (Late st Contact Info) Description 11/11/2011 12:23 AM EDT - 11/11/2011 2:59 AM EDT Emergency [place] [address] Anjali Herron MD [facility] [place] [address] Other malaise and fatigue Discharge Disposition: Home Social History Tobacco Use [...] Sign Reading Time Taken Comments Blood Pressure 107/70 11/11/2011 2:58 AM EDT Pulse 62 11/11/2011 2:58 AM EDT Temperature 36.5 ??C (97.7 ??F) 11/11/2011 2:58 AM ED T Respiratory Rate 18 11/11/2011 2:58 AM EDT Oxygen Saturation 100% 11/11/2011 2:58 AM EDT Inhaled Oxygen Concentration - - Weight - - Height - - Body Mass Index - - documented in this encounter Discharge Instructions * Attachments The following attachments cannot be sent through Care Everywhere. * LEARNING ABOUT SLEEPING WELL (BHUTANESE) * FATIGUE: AFTER YOUR VISIT (BHUTANESE) documented in this encounter Medications at Time of Discharge Medication Sig Dispensed Refills Start Date End Date aspirin 500 mg EC tablet Take 500 mg by mouth as needed. Every 4-6 hours prn 07/23/2012 naproxen sodium (ALEVE) 220 mg tablet Take 220 mg by mouth as needed. 01/04/2011 07/09/2017 documented as of this encounter ED Notes * Anjali Herron MD - 11/11/2011 1:04 AM EDT Chief Complaint Patient presents with ??? Shortness of Breath HPI Pt is a 66y/o male with h/o panic disorder, OA presenting with multiple complaints including SOB upon standing along with dizziness. Over the past week pt has not felt himself, he has decreased energy, insomnia. He saw his PCP this week who thought that his symptoms were related to relatively low BP. When asked why he came to the ED tonight he states fear. He had a coughing spell while in bed tonight associated with production of sputum (he did not look at it), took a full dose ASA and came here. The SOB and dizziness are not associated with chest pain/teeth or jaw pain/arm pain/diaphoresis/n/v. This has been a chronic issue for him and is unchanged. He had bronchitis 5 weeks ago and tooka zpak, symptoms had completely resolved prior to this. He has no h/o GERD. He denies orthopnea/PND/MARTIN other than as above. He has intermittent leg swelling which he was told was related to varicoseveins. His brother 1 week ago from a bleeding brain aneurysm. The pt recently had a nl MRI, and is scheduled to have carotid duplex after carotid bruit was noted on exam. He has not had dysarthri a/sided weakness. He has a h/o anxiety and panic attacks when his older brother a few years ago, but he does not think that this is similar. Allergies Allergen Reactions ??? Penicillins Review of Systems Constitutional: Positive for activity change, appetite change and fatigue. Negative for fever, chills, diaphoresis and unexpected weight change. HENT: Negative. Eyes: Negative. Respiratory: Positive for cough and shortness of breath. Negative for apnea, choking and chest tightness. Cardiovascular: Positive for palpitations and leg swelling. Negative for chest pain. Gastrointestinal: Negative for nausea, vomiting, abdominal pain, diarrhea, constipation, blood in stool and abdominal distention. Genitourinary: Negative. Musculoskeletal: Negative. Skin: Negative. Neurological: Positive for dizziness. Negative for syncope, facial asymmetry, speech difficulty, weakness, numbness and headaches. Psychiatric/Behavioral: Denies depressed mood or panic/anxiety since brother Physical Exam Constitutional: He is oriented to person, place, and time. He appears well- developed and well-nourished. No distress. HENT: Head: Normocephalic and atraumatic. Eyes: Pupils are equal, round, and reactive to light. No scleral icterus. Neck: Normal range of motion. Neck supple. Cardiovascular: Normal rate, regular rhythm, normal heart sounds and intact distal pulses. Exam reveals no gallop and no friction rub. No murmur heard. Pulmonary/Chest: Effort normal and breath sounds normal. He has no rales. He exhibits no tenderness. Abdominal: Soft. He exhibits no distension and no mass. No tenderness. He has no rebound and no guarding. Musculoskeletal: He exhibits no edema. Neurological: He is alert and oriented to person, place, and time. Skin: Skin is warm. He is not diaphoretic. Psychiatric: Flat affect Procedures MDM ED Course: EKG unchanged from previous. CXR wnl. Labs were unimpressive. Diagnosis is fatigue. He has not had an RI, does not have a PNA. Given his recent loss and stress, fatigue is the final diagnosis. Discussed this with pt who agreed and stated he was glad it was not my heart. Discussed regular meals and fluid intake, sleep hygiene, and relaxation techniques. D/w Dr. Bernice Fitch MD Resident 11/11/11 0242 Patient seen and examined with Dr. Fitch. Please see her note for further details. I have seen andexamined the patient myself, reviewed labs and imaging, and agree with Dr. Fitch' assessment, examfindings, and plan of care. Medical decision making is my own. Summary: 66-year-old male with multiple vague complaints, chief among them being taken, difficulty sleeping,and phlegm in my throat. Significant social stress recently with of his brother. Unremarkable exam. EKG unchanged from prior bifascicular block but no acute ischemia. Labs and imaging reassuring. Do not suspect cardiac event or other concerning cause. Plan as above. Anjali Herron MD 11/11/11 0306 documented in this encounter Miscellaneous Notes * Miscellaneous - Provider, Scanning - 11/11/2011 3:42 PM EDT * Discharge Summary - Provider, Scanning - 11/11/2011 9:28 AM EDT * ED Triage - Brennon Dacosta RN - 11/11/2011 12:40 AM EDT Alert oriented adult male with c/o difficulty breathing and episodes of productive coughing pt respare regular unlabored pt denies nausea or chest pain denies pain with deep breathing pt states he has a MRA the other day to check for an anurism documented in this encounter Plan of Treatment Upcoming Encounters Date Type Department Care Team (Late st Contact Info) Description 12/15/2024 11:30 AM EDT Office Visit Gastroenterology at [facility] [place] [address] Charline Ziegler MD [facility] [place] [address] documented as of this encounter Procedures Procedure Name Priority Date/Time Associated Diagnosis Comments XR CHEST PA AND LATERAL STAT 11/11/2011 1:00 AM EDT GOLD TUBE HOLD STAT 11/11/2011 12:50 AM EDT BLUE TUBE HOLD STAT 11/11/2011 12:50 AM EDT LAVENDER TUBE HOLD STAT 11/11/2011 12 :50 AM EDT LAVENDER TUBE HOLD STAT 11/11/2011 12 :50 AM EDT BUN STAT 11/11/2011 12:50 AM EDT TROPONIN STAT 11/11/2011 12:50 AM EDT GLUCOSE STAT 11/11/2011 12:50 AM EDT CK STAT 11/11/2011 12:50 AM EDT ELECTROLYTES PANEL STAT 11/11/2011 12 :50 AM EDT EKG 12-LEAD STAT 11/11/2011 12:37 AM EDT documented in this encounter Results * XR chest routine PA & lateral (11/11/2011 1:00 AM EDT) Anatomical Region Laterality Modality Chest N/A Radiographic Chelsea ging 11/11/2011 1:00 AM EDT Narrative 11/11/2011 6:03 PM EDT Examination CHEST ROUTINE PA+LAT/EDVM Clinical History Reason for exam and clinical history: sob; Comparison Outside chest radiographs 11/13/2009, chest radiographs 10/26/2009. Technique PA and lateral views of the chest were obtained. Findings The lungs are hyperinflated. The cardiomediastinal silhouette is within normal limits. ??Lungs are clear without evidence of focal airspace consolidation, large effusions or pneumothoraces. Minimal blunting of the left costophrenic angle suggests pleural thickening or trace effusion. The previously described rounded faint opacity in the left lower lung has been confirmed as the patient's nipple with nipple markers on the outside radiographs. No suspicious pulmonary nodules. ??No pulmonary edema. Impression 1. ??No acute cardiopulmonary abnormality. Film and interpretation reviewed by the attending Procedure Note Silvia Wolff MD - 11/11/2011 Examination CHEST ROUTINE PA+LAT/EDVM Clinical History Reason for exam and clinical history: sob; Comparison Outside chest radiographs 11/13/2009, chest radiographs 10/26/2009. Technique PA and lateral views of the chest were obtained. Findings The lungs are hyperinflated. The cardiomediastinal silhouette is withinnormal limits. Lungs are clear without evidence of focal airspace consolidation, large effusions or pneumothoraces. Minimal blunting of the leftcostophrenic angle suggests pleural thickening or trace effusion. The previouslydescribed rounded faint opacity in the left lower lung has been confirmed as the patient's nipple with nipple markers on the outside radiographs. Nosuspicious pulmonary nodules. No pulmonary edema. Impression 1. No acute cardiopulmonary abnormality. Film and interpretation reviewed by the attending Anjali Herron MD IMG DX ORDERABLES * GLUCOSE, RANDOM (11/11/2011 12:50 AM EDT) Glucose 95 60 - 199 mg/dL CERNER MILLENNIUM Comment:Diabetes: >=200 mg/d L plus symptoms Blood specimen (specimen) 11/11/2011 12:50 AM EDT 11/11/2011 1:04 AM EDT Narrative Resulting Agency Comment Spec In Lab Anjali Herron MD [facility]MISTRY ORDERABLE S [facility] * ELECTROLYTES PANEL (11/11/2011 12:50 AM EDT) Sodium 137 135 - 145 mmol/L CERNER MILLENNIUM Potassium 3.6 3.5 - 5.0 mmol/L CERNER MILLENNIUM Comment: Please note: ??Patients with WBC >100,000 may have falsely elevated Potassium levels. ??For accurate Potassium quantification in these patients send serum separator tube (gold top) for subsequent determinations. ??Contact the Clinical Chemistry Laboratory if there are any questions. Chloride 104 98 - 107 mmol/L CERNER MILLENNIUM Carbon Dioxide 27 22 - 31 mmol/L CERNER MILLENNIUM Anion Gap 6 5 - 15 mmol/L SOY CHEUNGENNIUM Blood specimen (specimen) 11/11/2011 12:50 AM EDT 11/11/2011 1:04 AM EDT Narrative Resulting Agency Comment Spec In Lab Anjali Herron MD CHEMISTRY ORDERABLE S Performing Organization Address [facility]/ZIP Co de Phone Number SOY CHEUNGENNIUM * LAVENDER TUBE HOLD (11/11/2011 12:50 AM EDT) Lavender Hold Sample in lab. SOY CHEUNGENNIUM Blood specimen (specimen) 11/11/2011 12:50 AM EDT 11/11/2011 1:02 AM EDT Anjali Herron MD HEMATOLOGY ORDERABL ES Performing Organization Address [facility] Co de Phone Number SOY CHEUNGENNIUM * LAVENDER TUBE HOLD (11/11/2011 12:50 AM EDT) Lavender Hold Sample in lab. SOY CHEUNGENNIUM Blood specimen (specimen) 11/11/2011 12:50 AM EDT 11/11/2011 1:00 AM EDT Anjali Herron MD HEMATOLOGY ORDERABL ES Performing Organization Address [facility] Co de Phone Number SOY LOMBARDIIUM * CK (11/11/2011 12:50 AM EDT) Creatine Kinase 107 0 - 200 unit/L SOY LOMBARDIIUM Blood specimen (specimen) 11/11/2011 12:50 AM EDT 11/11/2011 1:00 AM EDT Narrative Resulting Agency Comment Spec In Lab Anjali Herron MD CHEMISTRY ORDERABLE S SOY CHEUNGENNIUM * BUN (11/11/2011 12:50 AM EDT) Blood Urea Nitrogen 16 10 - 20 mg/dL CERNER MILLENNIUM Blood specimen (specimen) 11/11/2011 12:50 AM EDT 11/11/2011 1:00 AM EDT Narrative Resulting Agency Comment Spec In Lab Anjali Herron MD CHEMISTRY ORDERABLE S Performing Organization Address [facility] de Phone Number SOY LOMBARDIIUM * Blue Tube HOLD (11/11/2011 12:50 AM EDT) Blue Hold Sample in lab. SOY CARRINGTON Blood specimen (specimen) 11/11/2011 12:50 AM EDT 11/11/2011 1:00 AM EDT Anjali Herron MD HEMATOLOGY ORDERABL ES Performing Organization Address [facility] de Phone Number SOY [place] * Gold Tube HOLD (11/11/2011 12:50 AM EDT) Gold Hold Sample in lab. SOY CARRINGTON Blood specimen (specimen) 11/11/2011 12:50 AM EDT 11/11/2011 1:00 AM EDT Anjali Herron MD CHEMISTRY ORDERABLE S Performing Organization Address [facility] de Phone Number SOY LOMBARDIIUM * Troponin T (11/11/2011 12:50 AM EDT) Pathologist [facility] [place] Troponin-T <0.03 <=0.03 ng/mL SOY CARRINGTON Comment: 0.03 ng/mL: Represents the 99th percentile upper reference limit for normals. >0.03 ng/mL: Elevated cardiac troponin T level indicative of myocardial damage. Diagnosis of acute, evolving or recent RI requires a typical rise and gradual fall [...] of suspicion is high. Reference: [Myocardial infarction redefined a consensus document of the Joint Society of Cardiology/[place] College [employer] Committee for the redefinition of myocardial infarction. Journal of the [place] [employer] 2000; 36: 959-969] Blood specimen (specimen) 11/11/2011 12:50 AM EDT 11/11/2011 1:00 AM EDT Narrative Resulting Agency Comment Spec In Lab Anjali Herron MD CHEMISTRY ORDERABLE S Performing Organization Address [facility] Co de Phone Number SOY [employer] * EKG 12 Lead (11/11/2011 12:37 AM EDT) Ventricular rate 72 BPM MUSE SYSTEM Atrial Rate 72 BPM MUSE SYSTEM P-R Interval 168 ms MUSE SYSTEM QRS Duration 156 ms MUSE SYSTEM Q-T Interval 428 ms MUSE SYSTEM QTC Calculated (Bezet) 468 ms MUSE SYSTEM Calculated P [place] 70 degrees MUSE SYSTEM Calculated R [place] -58 degrees MUSE SYSTEM Calculated T [place] 39 degrees MUSE SYSTEM INTERPRETATION Normal sinus rhythm Right bundle branch block Left anterior fascicular block Bifascicular block Septal infarct , age undetermined Abnormal ECG Confirmed by MELANIA, ??TAL CHAVEZ ([id number]) on 11/11/2011 2:09:35 PM MUSE SYSTEM 11/11/2011 12:3 7 AM EDT 11/11/2011 2:09 PM EDT Anjali Herron MD ECG ORDERABLES Performing Organization Address [facility] Co de Phone Number MUSE SYSTEM documented in this encounter Visit Diagnoses Diagnosis Other malaise and fatigue documented in this encounter Administered Medications Inactive Administered Medications - up to 3 most recent administrations Medication Order MAR Action Action Date Dose Rate Site sodium chloride 0.9% 500 mL IV bolus Intravenous, ONCE, 1 dose, On Fri11/11/11 at 0145 Given 11/11/2011 2:15 AM EDT documented in this encounter Active and Recently Administered Medications Times are shown in EDT. Scheduled Medication Order 11/09/2011 11/10/2011 11/11/2011 sodium chloride 0.9% 500 mL IV bolus (COMPLETED) Intravenous, ONCE, 1 dose, On Fri11/11/11 at 0145 0215 (Given - Provid er: Suzanne Us RN) documented in this encounter Care Teams Tour Production Supervisor Relationship Specialty Start Date End Date Ron Burns MD [address] [facility] [address] [place] [address] PCP - General 11/08/11 02/11/12 documented as of this encounter
--- OUTSIDE RECORDS SUMMARY | 2024-07-09 11:21 | XMS_ITS | Encounter Summary ---
Author Organization [facility] Address [facility] [place] [address] Care Team Providers Care Outcomes Specialist Name Role Phone Reji Adams MD Primary Care Provider [phone] Encounter Details Date Type Department Care Team (Late st Contact Info) Description 06/02/2012 7:30 AM EST - 06/02/2012 11:40 AM EST [place] [address] Beatrice Broussard MD [facility] [place] [address] LIGATION\DIV\STRIP GREATER SAPHENOUS VEIN (WRVU 8.16) Social History Tobacco Use Types Packs/Day Years Used Date Smoking Tobacco: Never Smokeless Tobacco: Current Chew Tobacco Cessation:Ready to Q uit: No; Counseling Given: Yes Comments:3 cans/ week Alcohol Use Standard Drinks/Week [...] Sign Reading Time Taken Comments Blood Pressure 112/66 06/02/2012 6:01 AM EST Pulse 62 06/02/2012 6:01 AM EST Temperature 36.4 ??C (97.5 ??F) 06/02/2012 6:01 AM ES T Respiratory Rate 17 06/02/2012 6:01 AM EST Oxygen Saturation 100% 06/02/2012 6:01 AM EST Inhaled Oxygen Concentration - - Weight 95.3 kg (210 lb) 06/02/2012 6:01 AM EST Height 180.3 cm (5' 11) 06/02/2012 6:01 AM EST Body Mass Index 29.29 06/02/2012 6:01 AM EST documented in this encounter Discharge Instructions * Discharge Instructions* Beckie Hernandez RN - 06/02/2012 12:49 PM EST POST ANESTHESIA INSTRUCTIONS Go home, rest, use caution on stairs. Change positions slowly. Do not smoke if you are alone. Diet light to regular as tolerated today. If nausea occurs start with clear liquids and progress slowly. No driving, operating machinery, alcoholic beverages and no important decisions for 24 hours. Monitor IV site for signs and symptoms of infection: increasing redness, swelling, foul drainage, if occurs contact M.D. Patients who have had endotrachial tubes (this tube, used by anesthesia department, is passed down your throat after you are asleep, to ensure safe air passage during your operation). A sore throat is normal due to the tube. Cold liquids or soothing lozenges will help ease the discomfort. The generalized muscle aches are due to the medication given to you just before the tube is inserted. As the medication wears off, you may develop muscle soreness, which usually goes away in 12-24 hours. * Patient Instructions* Amanda Rasmussen MD - 06/02/2012 12:27 PM EST You underwent varicose vein removal to both your legs today. Wound: You should keep your right leg RANJAN wrapped for 48 hours; after this time, you may take the dressing down and shower and rewrap your leg as needed or resume your use of compression stockings. Your incisions are covered with dermabond in the groins and steristrips along the legs. The steristrips will fall off on their own in the course of days to weeks in the shower. There dermabond will gradually flake off over the course of weeks. Shower/Bath: OK to shower, wash with soap and water, and pat dry; avoid bathing or swimming for 2 weeks until incisions well healed Diet: resume regular diet Activity: As tolerated, OK to walk. When not walking, try to keep legs elevated to a level above your nose for the first few days to help with pain and swelling and as needed later for comfort Driving: none while on narcotic pain meds; may resume when leg feeling well. We will see you in clinic on Jun 24 at 4:[address] Broussard; an appointment will be mailed to you but if you do not receive it, or have other questions please call [phone] as your followup is very important to us. documented in this encounter Medications at Time of Discharge Medication Sig Dispensed Refills Start Date End Date multivitamin (THERAGRAN) tablet Take 1 tablet by mouth daily. aspirin 81 mg EC tablet Take 81 mg by mouth daily. 08/02/2014 CANO FLAVOR (CANO CONCENTRATE ORAL) Take 1 capsule by mouth daily. 11/16/2012 Saw Rice 500 mg capsule Take 500 mg by mouth daily. 03/14/2020 acetaminophen (TYLENOL) 325 mg tablet Take 2 tablets by mouth every 4 hours as needed for Pain. 06/02/2012 07/23/2012 Mavis Extract 500 mg Cap Take 1 capsule by mouth daily. 03/24/2017 aspirin 500 mg EC tablet Take 500 mg by mouth as needed. Every 4-6 hours prn 07/23/2012 naproxen sodium (ALEVE) 220 mg tablet Take 220 mg by mouth as needed. 01/04/2011 07/09/2017 documented as of this encounter Progress Notes * Beckie Hernandez, RN - 06/02/2012 1:56 PM EST 1355 at bedside. Pt urinated 25 cc yellow urine. Tolerating gal crackers and water. 1425 Pt sits EOB then ambulates in hallway without difficulty. States adequate pain control. Reviewed discharge instructions with pt and Xena. Dr Robledo to bedside. Pt into BR, voided. Noticed bleeding through on right anterior mid thigh. Ranjan wrap marked with [place] at site aprrox. 6cm. Reinforced with ABD and kerlix. Pt reassured and encouraged to call with increased bleeding at that site. documented in this encounter H&P Notes * Amanda Rasmussen MD - 06/02/2012 7:12 AM EST Vascular Surgery Preop H&P HPI: Ken Mckeon is a 66 y.o. nondiabetic man with bilateral symptomatic varicose veins. He has a long-standing history of varicose veins, and had varicose vein stripping when he was in high school. He has moderate leg swelling, for many years. He has increasing discomfort and itching from his va ricose veins, especially when he walks or stands for long periods. He has never smoked but he does chew some tobacco. Since October he has been wearing 30-40 mmHg without relief despite elevates his legs several times during the day. He has had to reduce his walking and is now very frustrated. Both legs seemed equally symptomatic. PMHx/PSHx: Patient Active Problem List Diagnoses ??? Anxiety ??? Lightheadedness ??? Varicose veins of legs ??? OA (osteoarthritis) of knee right ??? Cataract extraction status of left eye ??? Status post total knee replacement TKR Right knee in 2007 Past Surgical History Procedure Date ??? Created by interface Past surg hx. Procedure Date: 09/19/2010 No current facility-administered medications on file prior to encounter. Current outpatient prescriptions ordered prior to encounter Medication Sig Dispense Refill ??? Mavis Extract 500 mg Cap Take 1 capsule by mouth daily. ??? naproxen sodium (ALEVE) 220 mg tablet Take 220 mg by mouth as needed. ??? aspirin 500 mg EC tablet Take 500 mg by mouth as needed. Every 4-6 hours prn Allergies Allergen Reactions ??? Penicillins History Social History ??? Marital Status: Spouse Name: N/A Number of Children: N/A ??? Years of Education: N/A Occupational History ??? Not on file. Social History Main Topics ??? Smoking status: Never Smoker ??? Smokeless tobacco: Current User Types: Chew Comment: 3 cans/ week ??? Alcohol Use: 0.6 oz/week 1 Cans of beer per week ??? Drug Use: No ??? Sexually Active: Not on file Other Topics Concern ??? Not on file Social History Narrative ??? No narrative on file No family history on file. Filed Vitals: 06/02/12 0601 BP: 112/66 Pulse: 62 Temp: 36.4 ??C (97.5 ??F) TempSrc: Oral Resp: 17 Height: 180.3 cm (5' 11) Weight: 95.255 kg (210 lb) SpO2: 100% Gen: AAOx3, NAD CV: RRR, no m/r/g Pulm: CTA B Abd: soft, NT, ND Ext: Bilateral large varocosities beginning in the upper thigh and extending well into the calf anteriorly, down to medial ankle fullness on right. In places these are as large as 8 mm diameter. John>L posterior varicosities which are less prominent. He has some nonpitting edema of both lower legs. No recent labs 02/2012 Stress Echo: SUMMARY: 1. BASELINE: Left ventricular chamber size, wall thickness, global and segmental systolic function are within normal limits. Ejection fraction is estimated to be 65%. Doppler assessment is consistentwith normal left sided filling pressure. Right ventricular chamber size, wall thickness, and systolic function are within normal limits. Chamber sizes are normal. The estimated pulmonary artery systolic pressure is 20 mmHg. EKG: right bundle branch block with no Q waves or ST changes 2. STRESS: Patient followed a [place] protocol, exercised into stage 3, and the total exercise duration was:6:20. The patient achieved a level of 9 METS, peak HR= 127 bpm (81% MPHR), maximal BP= 168/78mmHg, and a DP= 21.3K No symptoms or ischemia EKG changes, occasional PACs and 1 short 4 beat PAT in recovery. All lucio increased in thickening with no segmental wall motion abnormality, with EF increasing from 65 to 75-80%. 3. IMPRESSION: Non diagnostic TST secondary to subtarget HR, but no EKG changes, symptoms or imaging evidence for ischemia at the level of stress attained, and reasonable workload. 12/06/11: Venous incompetence duplex: Right Reflux? Diameter AP (mm) Depth (mm) Common Femoral Vein Reflux Femoral Vein Thigh Reflux Popliteal Reflux Posterior Tibial Vein Competent Great Saphenous Vein, Near SFJ Reflux 4.4 19.6 Great Saphenous, Upper Thigh Reflux 3.1 17.4 Great Saphenous Vein, Mid Thigh Reflux 4.3 17.8 Great Saphenous Vein, Knee Reflux 3.5 6.4 Great Saphenous Vein, Below Knee Reflux 4.5 6.8 Short Saphenous, Below Knee Competent Left Reflux? Diameter AP (mm) Depth (mm) Common Femoral Vein Competent Femoral Vein Thigh Competent Popliteal Reflux Posterior Tibial Vein Competent Great Saphenous Vein, Near SFJ Reflux 4.4 18.1 Great Saphenous, Upper Thigh Reflux 4.5 9.2 Great Saphenous Vein, Mid Thigh Reflux 3.8 24.3 Great Saphenous Vein, Knee Reflux 5.9 8.1 Great Saphenous Vein, Below Knee Reflux 5.7 7.9 Short Saphenous, Below Knee Competent Interpretation: RIGHT: Findings consistent with deep and superficial venous valvular incompetence. No evidence of deep (fem-pop) or superficial vein thrombus. LEFT: Findings consistent with deep and superficial venous valvular incompetence. No evidence of deep (fem-pop) or superficial vein thrombus. NOTE: There are many incompetent varicose veins throughout the entire length of both extremities. A/P: Ken Mckeon is a 66 y.o. 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 Plan for bilateral GSV stripping and varicose vein excision. documented in this encounter Miscellaneous Notes * Miscellaneous - Provider, Scanning - 06/02/2012 9:52 PM EST * Miscellaneous - Provider, Scanning - 06/02/2012 9:50 PM EST * OR Attestation - Beatrice Broussard MD - 06/02/2012 12:20 PM EST Attestation: Case Date: 06/02/2012 I was present and I participated during the entire procedure (does not need to include opening and closing). BEATRICE BROUSSARD MD 06/02/2012 * Op Note - Amanda Rasmussen MD - 06/02/2012 12:15 PM EST [facility] Operative Note Patient Name: Ken Mckeon : [id number] MR#: [id number] Case Date: 06/02/2012 Surgeon: Surgeon(s) and Role: * BEATRICE BROUSSARD MD - Primary * AMANDA RASMUSSEN MD - Resident-Surgeon Bro Preoperative diagnosis: VENOUS INSUFFICIENCY, VARICOSE VEINS Postoperative diagnosis: VENOUS INSUFFICIENCY, VARICOSE VEINS Procedure(s): LIGATION\DIV\STRIP GREATER SAPHENOUS VEIN STAB PHLEBECTOMY KARLI VEINS, EXTREMITY 10-20 INCISIONS-SANTI Anesthesia: General Findings: Bilateral high ligations of great saphenous vein remnants and neovascularizations at the saphenofemoral junction. Vein stripper unable to be passed to strip distally. Bilateral varicose vein stab phlebectomies (11 on right, 12 on left) Complications: none apparent Fluids: 1 L UOP: 500 mL Estimated Blood Loss: 50 mL Drains: none; quintero in place intraoperatively; removed a case completion Disposition: awakened from anesthesia, extubated and taken to the recovery room in a stable condition, having suffered no apparent untoward event. Condition: doing well without problems (Please see the Surgical Encounter Summary for any Implant and Specimen details pertinent to this patient.) HPI/Surgical Indications: Ken Mckeon is a 66 y.o. 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 He presents today for elective treatment of his bilateral anterior varicosities. Procedure Description: The patient was identified in the preoperative holding area and procedural consent obtained; his varicosities were marked in the standing position prior to the procedure. The patient was placed in supine position in the operating room and general anesthesia administered. A urinary catheter was inserted. Both his legs were prepped and draped in the usual sterile fashion and a procedural timeout was performed with all members of the team in agreement. A left femoral vein exposure was performed approximately 2 cm above the groin crease, medial to thefemoral pulse. The dissection was carried down through the soft tissue to expose a stump of the great saphenous vein at the saphenofemoral junction; several vein branches appearing to be neovascularization from this were ligated with 2-0 or 3-0 silk ties and divided and the great saphenous vein stump doubly ligated with 2-0 silk ties and divided. Attention was then turned to the right femoral vein exposure where a similar dissection was carried out with ligation and division of several prominent venous branches leading to a great saphenous vein stump; the stump of the great saphenous vein at the saphenofemoral junction was again identified, doubly ligated with 2-0 silk ties and divided. Attention was then turned towards the individual varicosities on the anterior and medial surfaces of the lower legs as well as in the proximal medial thigh on the left leg. In total 11 stab phlebectomies were performed on the right leg and 12 stab phlebectomies performed along the left leg. These incisions were closed with 4-0 monocryl u-stitches followed by placement of mastisol and steristrips. The bilateral groin incisons were closed with 2 layers of interrupted 3-0 vicryl sutures followed by a running subcuticular 4-0 monocryl skin closure and application of Dermaflex skin glue. The legs were then wrapped with Kerlex and an RANJAN wraps from the foot to the thigh on each side. All needle and sponge counts were correct at the conclusion of the case and the patient was extubated and returned to the same day holding area in stable condition following removal of his urinary catheter. Dr. Broussard was scrubbed and present for all portions of the case. * Brief Op Note - Amanda Rasmussen MD - 06/02/2012 12:13 PM EST Brief Operative Note Patient Name: Ken Mckeon : [id number] MR#: [id number] Case Date: 06/02/2012 Surgeon: Surgeon(s) and Role: * BEATRICE BROUSSARD MD - Primary * AMANDA RASMUSSEN MD - Resident-Surgeon Bro Preoperative diagnosis: VENOUS INSUFFICIENCY, VARICOSE VEINS Postoperative diagnosis: VENOUS INSUFFICIENCY, VARICOSE VEINS Procedure(s): LIGATION\DIV\STRIP GREATER SAPHENOUS VEIN STAB PHLEBECTOMY KARLI VEINS, EXTREMITY 10-20 INCISIONS-SANTI Anesthesia: General Findings: Bilateral high ligations of great saphenous vein remnant and neovascularizations at the saphenofemoral junction. Vein stripper unable to be passed to strip distally. Bilateral varicose veinexcisions (11 on right, 12 on left) Complications: none apparent Fluids: 1 L UOP: 500 mL Estimated Blood Loss: 50 mL Drains: none; quintero in place intraoperatively; removed a case completion Disposition: awakened from anesthesia, extubated and taken to the recovery room in a stable condition, having suffered no apparent untoward event. Condition: doing well without problems (Please see the Surgical Encounter Summary for any Implant and Specimen details pertinent to this patient.) * Miscellaneous - Provider, Scanning - 06/02/2012 6:47 AM EST documented in this encounter Plan of Treatment Upcoming Encounters Date Type Department Care Team (Late st Contact Info) Description 12/15/2024 11:30 AM EDT Office [place] [address] Charline Ziegler MD [facility] [place] [address] documented as of this encounter Procedures Procedure Name Priority Date/Time Associated Diagnosis Comments STAB PHLEBECTOMY KARLI VEINS, EXTREMITY 10-20 INCISIONS-SANTI (WRVU 4.8) 06/02/2012 7:18 AM EST Venous insufficiency Varicose veins LIGATION\DIV\STRIP GREATER SAPHENOUS VEIN (WRVU 8.16) 06/02/2012 7:18 AM EST Venous insufficiency Varicose veins documented in this encounter Visit Diagnoses Diagnosis Venous insufficiency Unspecified venous (peripheral) insufficiency Varicose veins Asymptomatic varicose veins documented in this encounter Administered Medications Inactive Administered Medications - up to 3 most recent administrations Medication Order MAR Action Action Date Dose Rate Site acetaminophen (TYLENOL) tablet 650 mg 650 mg, Oral, EVERY 4 HOURS PRN, Starting on Fri06/02/12 at 1216, Until Fri06/02/12 at 1701, Pain, Maximum dose of acetaminophen is 4000 mg from all sources in 24 hours., PACU Recovery, Routine Given 06/02/2012 2:15 PM EST 650 mg lactated ringers infusion 1,000 mL 1,000 mL, at 100 mL/hr, Intravenous, CONTINUOUS, Starting on Fri06/02/12 at 0630, Until Fri06/02/12 at 1701, Day of Surgery (Day of Procedure) New Bag 06/02/2012 6:28 AM EST 1,000 mLs 100 mL/hr vancomycin (VANCOCIN) injection ONCE PRN, Starting on Fri06/02/12 at 0725, Until Fri06/02/12 at 1701, Intra-Operative (Intra-Procedure), Routine Given 06/02/2012 7:25 AM EST 1 g vancomycin 1 g in sodium chloride 0.9% 250 mL 1,000 mg (1 g), Intravenous, at 166.7 mL/hr, ONCE, 1 dose, On Fri06/02/12 at 0745, This medication may have an associated drug lab level. Please check for lab orders, Routine, Indication for (Active or Suspected): Prophylaxis Given 06/02/2012 7:24 AM EST 1,000 mg 166.7 mL/hr documented in this encounter Active and Recently Administered Medications Due to Daylight Saving Time, this section may contain times in both EDT and EST. Scheduled Medication Order 05/31/2012 06/01/2012 06/02/2012 vancomycin 1 g in sodium chloride 0.9% 250 mL (COMPLETED) 1,000 mg (1 g), Intravenous, at 166.7 mL/hr, ONCE, 1 dose, On Fri06/02/12 at 0745, This medication may have an associated drug lab level. Please check for lab orders, Routine, Indication for (Active or Suspected): Prophylaxis 0724 (Given - Provid er: Rose Leon RN) Continuous Medication Order 05/31/2012 06/01/2012 06/02/2012 lactated ringers infusion 1,000 mL (CANCELED) 1,000 mL, at 100 mL/hr, Intravenous, CONTINUOUS, Starting on Fri06/02/12 at 0630, Until Fri06/02/12 at 1701, Day of Surgery (Day of Procedure) 0628 (New Bag - Prov ider: Rose Leon RN) PRN Medication Order 05/31/2012 06/01/2012 06/02/2012 acetaminophen (TYLENOL) tablet 650 mg 650 mg, Oral, EVERY 4 HOURS PRN, Starting on Fri06/02/12 at 1216, Until Fri06/02/12 at 1701, Pain, Maximum dose of acetaminophen is 4000 mg from all sources in 24 hours., PACU Recovery, Routine 1415 (Given - Provid er: Beckie Hernandez RN) OXYcodone (ROXICODONE) immediate release tablet 5-10 mg 5-10 mg, Oral, EVERY 4 HOURS PRN, Starting on Fri06/02/12 at 1216, Until Fri06/02/12 at 1701, Pain, PACU Recovery, Routine vancomycin (VANCOCIN) injection (CANCELED) ONCE PRN, Starting on Fri06/02/12 at 0725, Until Fri06/02/12 at 1701, Intra-Operative (Intra-Procedure), Routine 0725 (Given - Provid er: Devang Martínez) documented in this encounter Care Teams Outcomes Specialist Relationship Specialty Start Date End Date Reji Adams MD [facility] [place] [address] PCP - General 02/12/12 06/27/15 documented as of this encounter
--- OUTSIDE RECORDS SUMMARY | 2024-07-09 11:21 | XMS_ITS | Encounter Summary ---
Author Organization [facility] [place] [address] Care Team Providers Care Cloth Shrinker Name Role Phone Reji Adams MD Primary Care Provider [phone] Encounter Details Date Type Department Care Team (Late st Contact Info) Description 03/09/2012 10:49 AM EDT - 03/09/2012 11:59 PM EDT Hospital Encounter Non-Invasive [place] [address] Dizziness Social History Tobacco Use Types Packs/Day [...] tablet Take 1 tablet by mouth daily. 03/13/2012 ASCORBIC ACID/VITAMIN E (CRANBERRY CONCENTRATE ORAL) Take 1 capsule by mouth daily. 03/13/2012 Mavis Extract 500 mg Cap Take 1 capsule by mouth daily. 03/24/2017 OMEGA-3 FATTY ACIDS (FISH OIL CONCENTRATE ORAL) Take 1 capsule by mouth daily. 03/13/2012 ZINC MTH/COPPER/SAW PALM/GNSG (PROSTATE HEALTH FORMULA ORAL) Take 1 tablet by mouth 2 times daily. 03/13/2012 aspirin 500 mg EC tablet Take 500 [...] Visit Gastroenterology at [facility] [place] [address] [facility] [place] [address] documented as of this encounter Procedures Procedure Name Priority Date/Time Associated Diagnosis Comments ECHOCARDIOGRAM STRESS TEST (TREADMILL) Routine 03/09/2012 11:38 AM EDT Dizziness documented in this encounter Results * Echocardiogram Stress (Treadmill) (03/09/2012 11:38 AM EDT) EF 65 HEARTLAB SYSTEM Anatomical Region Laterality Modality Other 03/09/2012 Narrative 03/09/2012 3:34 PM EDT Procedure: ? Stress Echocardiogram Patient: ? KELSEY DELGADO W ? (Age): 1945(66) Med Rec#: ?[id number] ? Sex: ?M ? Site Loc: [facility] [place] ? Ht / Wt: ??180(cm)/95(kg) Pt. Loc: ? Echo Lab ? BSA: ?2.18 Study Date: ?03/09/2012 ? Pt. Type: Outpatient Tape: ?GE3 ? Referring: Reji Adams Blending Technician: Frantz Cruz Police Judge: Ely Soto Diagnosis: ??Syncope (780.2) CPT Code(s): ??Doppler LTD (85422), ??ECG Interpretation (68094), ??Stress Echo (34312), ??Color Doppler (72760), Indication(s): ??Syncope Medication(s): ?? Rhythm: Bundle Branch Block Stage ?HR ?BP Rest ? 67 ?118/76 ?? Peak ? 115 ? 166/68 ?? SUMMARY: 1. BASELINE: ?? Left ventricular chamber size, wall thickness, global and segmental systolic function are within normal limits. Ejection fraction is estimated to be 65%. Doppler assessment is consistent with normal left sided filling pressure. ??Right ventricular chamber size, wall thickness, and systolic function are within normal limits. Chamber sizes are normal. The estimated pulmonary artery systolic pressure is 20 mmHg. EKG: right bundle branch block with no Q waves or ST changes 2. STRESS: ?? Patient followed a [place] protocol, ??exercised into stage 3, and the ??total exercise duration was:6:20. The patient achieved a level of 9 METS, peak HR= 127 bpm (81% MPHR), maximal BP= 168/78 mmHg, and a DP= 21.3K ??No symptoms or ischemia EKG changes, occasional PACs and 1 short 4 beat PAT in recovery. ??All lucoi increased in thickening with no segmental wall motion abnormality, with EF increasing from 65 to 75-80%. 3. IMPRESSION: Non diagnostic TST secondary to subtarget HR, but no EKG changes, symptoms or imaging evidence for ischemia at the level of stress attained, and reasonable workload. ?? FINDINGS: Rest Left Ventricle ?Left ventricular chamber size, wall thickness, global and segmental systolic function are within normal limits. Ejection fraction is estimated to be 65%. ?Doppler assessment is consistent with normal left sided filling pressure. Left Atrium ?The left atrium is probably normal in size. Right Ventricle ?Right ventricular chamber size, wall thickness, and systolic function are within normal limits. ?No pulmonary hypertension is noted. ?The estimated pulmonary artery systolic pressure is 20 mmHg. ?The estimated right atrial pressure is 3 mmHg. Right Atrium ?The right atrium is probably normal in size. Aortic Valve ?The aortic valve is trileaflet. The leaflets are thin with normal excursion. There is no aortic stenosis or regurgitation present. Mitral Valve ?The mitral valve appears normal in structure and function. ?There is trace mitral regurgitation present. Tricuspid Valve ?The tricuspid valve appears normal in structure and function. ?There is trace tricuspid regurgitation present. Pericardium ?The pericardium appears normal and there is no evidence of a pericardial effusion. Stress ?EKG: right bundle branch block. ?The patient is on no cardiac or blood pressure medications. Misc ?Other echo and stress findings as noted in report. ?Stress echo, limited spectral Doppler, color Doppler and ECG interpretation performed. FINDINGS: Peak Left Ventricle ?There is normal global left ventricular systolic function. Stress ?Patient followed a [place] protocol. ?The patient exercised into stage 3. ?The total exercise duration was:6:20 ?The study was terminated because of fatigue. ?The study was terminated because of ??mouth dryness ?Maximum heart rate achieved was 115, which is 74% of the maximum(155 beats/min). ?The target heart rate was not achieved. ?The patient did not express feelings of chest discomfort. ?The blood pressure response was normal. ?The patient achieved a level of 9 METS. ?There were rare ventricular premature beats. ?There was ST segment depression noted. ?The electrocardiographic response is indeterminate for ischemia: failed to achieve target heart rate. ?The echocardiographic response shows no evidence of ischemia, however at insufficient stress. FINDINGS: Recovery Stress ?EKG: Premature atrial contractions noted. ?EKG: SVT(1 Four beat run, rate 140 BPM) Wall Motion: Segment Name ?Rest ?Peak ? Base-Anteroseptal ?? Normal ?Normal ? Base-Anterior ? Normal ?Normal ? Base-Anterolateral ??Normal ?Normal ? Base-Posterolateral Normal ?Normal ? Base-Inferior ? Normal ?Normal ? Base-Inferoseptal ?? Normal ?Normal ? Mid-Anteroseptal ?Normal ?Normal ? Mid-Anterior ?Normal ?Normal ? Mid-Anterolateral ?? Normal ?Normal ? Mid-Posterolateral ??Normal ?Normal ? Mid-Inferior ?Normal ?Normal ? Mid-Inferoseptal ?Normal ?Normal ? [place]-Septal ? Normal ?Normal ? [place]-Anterior ? Normal ?Normal ? [place]-Lateral ?Normal ?Normal ? [place]-Inferior ? Normal ?Normal ? [place]-Tip ?Normal ?Normal ? Chambers ?Value ?Units (Range) ? LV EF Est ? 65 ? % (55 to 80) ? Mitral Valve ?Value ?Units (Range) ? E peak ?0.46 ? m/sec ? E1 ?0.07 ? m/sec ? E/E1 ?6.6 ?ratio ? Tricuspid/Pulmonic Valves ?Value ?Units (Range) ? TR peak brooklynn ? 2.1 ?m/sec ? RAP ? 3 ?mmHg ? RVSP/PASP ? 20 ? mmHg ? This report has been electronically signed by: Rayo Melgar MD ? 03/09/2012 15:33:56 Images reviewed and interpretation verified [facility] Procedure Note Rayo Melgar MD - 03/09/2012 Procedure: Stress Echocardiogram Patient: KELSEY Quiñonez (Age): 1945(66) Med Rec#: [id number] Sex: M Site Loc: [facility] [place] Ht / Wt: 180(cm)/95(kg) Pt. Loc: Echo Lab BSA: 2.18 Study Date: 03/09/2012 Pt. Type: Outpatient Tape: GE3 Referring: Reji Adams Blending Technician: Frantz Cruz Police Judge: Ely Soto Diagnosis: Syncope (780.2) CPT Code(s): Doppler LTD (46879), ECG Interpretation (86378), Stress Echo (51196), Color Doppler (94438), Indication(s): Syncope Medication(s): Rhythm: Bundle Branch Block Stage HR BP Rest 67 118/76 Peak 115 166/68 SUMMARY: 1. BASELINE: Left ventricular chamber size, wall thickness, global and segmental systolic function are within normal limits. Ejection fraction is estimated to be 65%. Doppler assessment is consistent with normal left sided filling pressure. Right ventricular [...] HR= 127 bpm (81% MPHR), maximal BP= 168/78 mmHg, and a DP= 21.3K No symptoms or [...] level of stress attained, and reasonable workload. FINDINGS: Rest Left Ventricle Left ventricular chamber size, wall thickness, global and segmental systolic function are within normal limits. Ejection fraction is estimated to be 65%. Doppler assessment is consistent with normal left sided filling pressure. Left Atrium The left atrium is probably normal in size. Right Ventricle Right ventricular chamber size, wall thickness, and systolic function are within normal limits. No pulmonary hypertension is noted. The estimated pulmonary artery systolic pressure is 20 mmHg. The estimated right atrial pressure is 3 mmHg. Right Atrium The right atrium is probably normal in size. Aortic Valve The aortic valve is trileaflet. The leaflets are thin with normal excursion. There is no aortic stenosis or regurgitation present. Mitral Valve The mitral valve appears normal in structure and function. There is trace mitral regurgitation present. Tricuspid Valve The tricuspid valve appears normal in structure and function. There is trace tricuspid regurgitation present. Pericardium The pericardium appears normal and there is no evidence of a pericardial effusion. Stress EKG: right bundle branch block. The patient is on no cardiac or blood pressure medications. Misc Other echo and stress findings as noted in report. Stress echo, limited spectral Doppler, color Doppler and ECG interpretation performed. FINDINGS: Peak Left Ventricle There is normal global left ventricular systolic function. Stress Patient followed a [place] protocol. The patient exercised into stage 3. The total exercise duration was:6:20 The study was terminated because of fatigue. The study was terminated because of mouth dryness Maximum heart rate achieved was 115, which is 74% of the maximum(155 beats/min). The target heart rate was not achieved. The patient did not express feelings of chest discomfort. The blood pressure response was normal. The patient achieved a level of 9 METS. There were rare ventricular premature beats. There was ST segment depression noted. The electrocardiographic response is indeterminate for ischemia: failed to achieve target heart rate. The echocardiographic response shows no evidence of ischemia, however at insufficient stress. FINDINGS: Recovery Stress EKG: Premature atrial contractions noted. EKG: SVT(1 Four beat run, rate 140 BPM) Wall Motion: Segment Name Rest Peak Base-Anteroseptal Normal Normal Base-Anterior Normal Normal Base-Anterolateral Normal Normal Base-Posterolateral Normal Normal Base-Inferior Normal Normal Base-Inferoseptal Normal Normal Mid-Anteroseptal Normal Normal Mid-Anterior Normal Normal Mid-Anterolateral Normal Normal Mid-Posterolateral Normal Normal Mid-Inferior Normal Normal Mid-Inferoseptal Normal Normal [place]-Septal Normal Normal [place]-Anterior Normal Normal [place]-Lateral Normal Normal [place]-Inferior Normal Normal [place]-Tip Normal Normal Chambers Value Units (Range) LV EF Est 65 % (55 to 80) Mitral Valve Value Units (Range) E peak 0.46 m/sec E1 0.07 m/sec E/E1 6.6 ratio Tricuspid/Pulmonic Valves Value Units (Range) TR peak brooklynn 2.1 m/sec RAP 3 mmHg RVSP/PASP 20 mmHg This report has been electronically signed by: Rayo Melgar MD 03/09/2012 15:33:56 Images reviewed and interpretation verified [facility] Reji Adams MD ECHO ORDERABLES documented in this encounter Visit Diagnoses Diagnosis Dizziness Dizziness and giddiness documented in this encounter Care Teams Cloth Shrinker Relationship Specialty Start Date End Date Reji Adams MD [facility] [place] [address] PCP - General 02/12/12 06/27/15 documented as of this encounter
--- OUTSIDE RECORDS SUMMARY | 2024-07-09 11:21 | XMS_ITS | Encounter Summary ---
Author Organization [facility] [place] [address] Care Team Providers Care Endodontic Assistant Name Role Phone Evon Kamara APRN Primary Care Provider Reason for Visit * Reason Comments Follow-up fatigue, SOB Loss of Vision double vision, blurr y, somewhat more light-sensitive. Ophtho appt on Friday, neg workup Dizziness intermittant Neck Pain stiffness: NO PAIN Encounter Details Date Type Department Care Team (Late st Contact Info) Description 02/06/2011 9:00 AM EDT Follow-Up Internal Medicine at [address] [address] Evon Kamara APRN [facility] [place] [address] Blurred vision (Primary Dx) Discharge Disposition: Home Social History [...] Sign Reading Time Taken Comments Blood Pressure 112/70 02/06/2011 8:57 AM EDT Pulse 65 02/06/2011 8:57 AM EDT Temperature 37 ??C (98.6 ??F) 02/06/2011 8:57 AM EDT Respiratory Rate - - Oxygen Saturation 97% 02/06/2011 8:57 AM EDT Inhaled Oxygen Concentration - - Weight - - Height - - Body Mass Index - - documented in this encounter Progress Notes * Evon Kamara, CNA GNA - 02/07/2011 1:11 PM EDT Subjective: Patient ID: Ken Mckeon is a 65 y.o. male. HPI Here in scheduled f/u- seen 2 weeks ago and tx with septra ds for prostatitis. Today, reports that the nocturia has resolved but he is still feeling off. Still has a sensation of needing to take a deep breath, no sob, castro,orthopnea. no cough, fever/chills. mild head congestion w/post nasal drip. At times feels like he has a mask over his eyes with pressure. Leaning over and bending forward has caused him to feel lightheaded for just a few seconds and then it resolves. He has also noted, that if he closes one eye he gets a linear shadow like double. He notes this most with the yellow line while driving. denies other field cuts. no cognitive chgs. no numbness/tingling/weakness in his extremities. +decreased energy. low appetite, fluids fine. He did go to his Test Rack Operator and received a good report. +dilated exam. Review of Systems Objective: Physical Exam nad, sl anxious heent: no sinus pain ears-wnl throat: neg evan,eomi, nml lal, no ester chest: cta a/p cv s1s2 reg nomrg. = upstrokes, no bruits. abd: soft, nt neuro: CN grossly intact, neg romberg, nml heel/toe walking. +1 brachial/patallar/achilles bilat. nml finger/nose. vision: color intact vitals: 115/60 60 reg lying sit: 118/65 65 stand: 111/71 80 no sx. RA sat 96%, 100% w/stairs and 99% walking in clinic. Assessment and Plan: s/p prostatitis: completed septra w/o incident. Symptom complex: no evidence of his air hunger being infection or PE. The visual complaints are concerning but the exam is normal and not indicative of cerebrovascular etiology. We did not perform metabolic tests last visit as he declined for insurance purposes. He will try a few days of OTC antihistamine to see if that helps w/head congestion. I will order cbc,cmp,tsh today. If these are normal, add on sed rate, nichelle. Addendum: pt called later in the day after talking his his Test Rack Operator again. He does have cataracts bilaterally. L>R. The cataract in the L can interfere with his vision. His lt headedness could be a flair of his meniere's dz. Of note, the antihistamine helped the congestion and eye fullness. advised to get the labs done. documented in this encounter Plan of Treatment Upcoming Encounters Date Type Department Care Team (Late st Contact Info) Description 12/15/2024 11:30 AM EDT Office [place] [address] Charline Ziegler MD [facility] [place] [address] documented as of this encounter Visit Diagnoses Diagnosis Blurred vision- Primary Other specified visual disturbances documented in this encounter Care Teams Endodontic Assistant Relationship Specialty Start Date End Date Evon Kamara APRN [facility] [address] [place] [address] PCP - General 01/23/11 11/07/11 documented as of this encounter
--- OUTSIDE RECORDS SUMMARY | 2024-07-09 11:21 | XMS_ITS | Encounter Summary ---
Author Organization [facility] Address [facility] [place] [address] Care Team Providers Care Child Adolescent Care Name Role Phone Reji Adams MD Primary Care Provider [phone] Encounter Details Date Type Department Care Team (Late st Contact Info) Description 07/23/2012 10:00 AM EST Office Visit Internal Medicine at [address] [address] Amrita Lozano MD [facility] [place] [address] Constipation (Primary Dx); Bloating; Fatigue Discharge Disposition: Home Social History Tobacco [...] * Patient Instructions* Amrita Lozano MD - 07/23/2012 10:32 AM EST For your stomach, take pepcid ac twice daily. Start eating a regular , scheduled diet, 3 meals small per day and 2 small snacks. Walk daily for 20 minutes. Will check your labs for thyroid, glucose today. documented in this encounter Progress Notes * Amrita Lozano MD - 07/23/2012 10:21 AM EST ESTABLISHED PATIENT VISIT Pt is a 66 y.o. who presents for follow up visit with Bloating, gas, nausea in am especially in am and subsides after eating, some weight gain. He does not feel like he is eating more. He weighed 208 at home, 1 month ago, now he is 215 before eating. His bowels are changing with constipation, and now regular or ok but uses prune juice daily( started 2-3 mos ago ). No blood in the stool, the color will change. No tarry black stools. He has dealt with depression, and anxiety and was given wellbutrin and clonazepam , he ran out of zanax and reluctant to taking clonazepam. Mother has thyroid issue, and daughter has underactive thyroid. Last colo was 4 years ago, he has had 2 colos with benign polyps. ROS: Constitutional - no fevers, chills, weight [...] or with movement Skin - no new rashes, dry skin in the winter All other systems negative Patient Active Problem List Diagnoses ??? Anxiety [...] Take 1 tablet by mouth daily. ??? CANO FLAVOR (CANO CONCENTRATE ORAL) Take 1 capsule by mouth daily. ??? Saw [place] 500 mg capsule Take 500 mg by mouth daily. ??? Mavis Extract 500 mg Cap Take 1 capsule by mouth daily. ??? naproxen sodium (ALEVE) 220 mg tablet Take 220 mg by mouth as needed. ??? DISCONTD: acetaminophen (TYLENOL) 325 mg tablet Take 2 tablets by mouth every 4 hours as neededfor Pain. ??? DISCONTD: aspirin 500 mg EC tablet Take 500 mg by mouth as needed. Every 4-6 hours prn Allergies Allergen Reactions ??? Penicillins Tongue swelling [...] No narrative on file Physical Exam: BP 117/70 Hr 67 Temp 97.8 Weight 215 General - No acute distress. ENT - [...] and Plan: Ken was seen today for no specified reason. Diagnoses and associated orders for this visit: Constipation/Bloating - Basic Metabolic Panel (non-fasting); Future Fatigue - Pt with a constellation of symptoms with fatigue, abdominal bloating, constipation and weight gain- will rule out thyroid disease with TSH; /T4, free; today. If normal, this could be more related to depression, and anxiety. He never took the meds prescribed to him from Dr Adams ( wellbutrin and c lonazapam) due to fear of these medications and he has hoarded his zanax( but keeps a pill in his pocket at all times due to fear ). Pt will first start with taking 1/2 clonazepam pill at bed time, and once he is comfortable with this, do a trial of wellbutrin. I will get him into see Dr Adams in 2-3 weeks. If all his testing is normal, and his bloating is still a problem, consider fodmap, ( last colo was4 yrs ago and may need this repeat ) documented in this encounter Plan of Treatment Upcoming Encounters Date Type Department Care Team (Late st Contact Info) Description 12/15/2024 11:30 AM EDT Office [place] [address] Charline Ziegler MD [facility] [place] [address] documented as of this encounter Procedures Procedure Name Priority Date/Time Associated Diagnosis Comments TSH Routine 07/23/2012 10:56 AM EST Fatigue T4, FREE Routine 07/23/2012 10:56 AM EST Fatigue BASIC METABOLIC PANEL Routine 07/23/2012 10:56 AM EST Constipation documented in this encounter Results * T4, free (07/23/2012 10:56 AM EST) Free T4 1.07 0.90 - 1.60 ng/dL [facility] Blood specimen (specimen) 07/23/2012 10:56 AM EST 07/23/2012 6:04 PM EST Narrative Resulting Agency Comment Spec In Lab Amrita Lozano MD CHEMISTRY ORDERAB LES [facility] * Basic Metabolic Panel (non-fasting) (07/23/2012 10:56 AM EST) Glucose 89 60 - 199 mg/dL [facility] Comment:Diabetes: >=200 mg/d L plus symptoms Blood Urea Nitrogen 15 10 - 20 mg/dL [facility] Creatinine 0.86 0.80 - 1.50 mg/dL [facility] Comment: Please note that the pediatric reference intervals supplied above were not validated at [facility]. Results from pediatric patients should be interpreted in conjunction to the patient's age, height and muscle mass. Sodium 140 135 - 145 mmol/L [facility]ILLENNI[facility] Potassium 4.4 3.5 - 5.0 mmol/L [facility] Comment: Please note: ??Patients with WBC >100,000 may have falsely elevated Potassium levels. ??For accurate Potassium quantification in these patients send serum separator tube (gold top) for subsequent determinations. ??Contact the Clinical Chemistry Laboratory if there are any questions. Chloride 104 98 - 107 mmol/L [facility] MILLENNI[facility] Carbon Dioxide 29 22 - 31 mmol/L [facility] MILLENNIUM Anion Gap 7 5 - 15 mmol/L [facility] MILLENNIUM Calcium 9.1 8.5 - 10.5 mg/dL [facility] MILLENNIUM Est [...] J Am Soc Nephrol;6:1963-72. Blood specimen (specimen) 07/23/2012 10:56 AM EST 07/23/2012 6:04 PM EST Narrative Resulting Agency Comment Spec In Lab Amrita Lozano MD CHEMISTRY ORDERAB LES Performing Organization Address City/[facility] Co de Phone Number SOY CARRINGTON * TSH (07/23/2012 10:56 AM EST) Thyroid Stimulating Hormone 1.42 0.27 - 4.20 mcIU/mL CERBOB MILLENNIUM Blood specimen (specimen) 07/23/2012 10:56 AM EST 07/23/2012 6:04 PM EST Narrative Resulting Agency Comment Spec In Lab Amrita Lozano MD CHEMISTRY ORDERAB LES Performing Organization Address [facility] Co de Phone Number SOY CARRINGTON documented in this encounter Visit Diagnoses Diagnosis Constipation- Primary Unspecified constipation Bloating Flatulence, eructation, and gas pain Fatigue Other malaise and fatigue documented in this encounter Care Teams Child Adolescent Care Relationship Specialty Start Date End Date Reji Adams MD [facility] [place] [address] PCP - General 02/12/12 06/27/15 documented as of this encounter
--- OUTSIDE RECORDS SUMMARY | 2024-07-09 11:21 | XMS_ITS | Encounter Summary ---
Author Organization [facility] Address [facility] [place] [address] Care Team Providers Care Assisted Living Associate Name Role Phone Ron Burns MD Primary Care Provider Encounter Details Date Type Department Care Team (Late st Contact Info) Description 01/04/2011 [place] [address] Lucille Victor, RN Status post total knee replacement Social History Tobacco Use Types Packs/Day Years Used Date Smoking Tobacco: Never Assessed Sex and Gender Information Value Date Recorded Sex Assigned at Choose not to disclose 02/2023 8:26 AM EDT Gender Identity Not on file Sexual Orientation Choose not to disclose 2022 8:26 AM EDT documented as of this encounter Plan of Treatment Upcoming Encounters Date Type Department Care Team (Late st Contact Info) Description 12/15/2024 11:30 AM EDT Office [place] [address] Charline Ziegler MD [facility] [place] [address] documented as of this encounter Visit Diagnoses Diagnosis Status post total knee replacement Knee joint replacement by other means documented in this encounter Care Teams Assisted Living Associate Relationship Specialty Start Date End Date Ron Burns MD [address] [facility] [address] [place] [address] PCP - General 06/19/10 01/22/11 documented as of this encounter
--- OUTSIDE RECORDS SUMMARY | 2024-07-09 11:21 | XMS_ITS | Encounter Summary ---
Author Organization [facility] Address [facility] [place] [address] Care Team Providers Care Odd Job Worker Name Role Phone Reji Adams MD Primary Care Provider [phone] Reason for Referral * Surgical (Routine) - Closed Specialty Diagnoses / Procedures Referred By Duglas arizmendi Referred To Contact Orthopaedic Surgery / Orthopaedics Diagnoses Neck pain Reji Adams MD [facility] [place] [address] [facility] [place] [address] [address] Referral ID Status Reason Start Date Expiration Date V isits Requested Visits Authorized [id number] Closed Consult, Test & Treat 08/18/2012 02/14/2013 1 1 Reason for Visit * Reason Comments Follow-up xray Encounter Details Date Type Department Care Team (Late st Contact Info) Description 08/18/2012 1:45 PM EST Office [place] [address] Reji Adams MD [facility] [place] [address] Neck pain (Primary Dx) Discharge Disposition: Home [...] Sign Reading Time Taken Comments Blood Pressure 105/71 08/18/2012 1:33 PM EST Pulse 69 08/18/2012 1:33 PM EST Temperature - - Respiratory Rate - - Oxygen Saturation - - Inhaled Oxygen Concentration - - Weight 98.9 kg (218 lb) 08/18/2012 1:33 PM EST Height - - Body Mass Index 31.28 06/24/2012 4:00 PM EST documented in this encounter Progress Notes * Reji Adams MD - 08/18/2012 1:52 PM EST ESTABLISHED PATIENT VISIT I. HISTORY a. Reason(s) for Visit: Ken Mckeon 66 y.o. male who presents today due to complaint(s) of: Chief Complaint Patient presents with ??? Follow-up xray b. History of Present Illness:[] Has had neck pain for months. Seen by chiropractor and ordered neck film. States does at times willhave some arm tingling that happens 2-3 times a week. No weakness. c. Review of Systems: Constitutional - no fevers, chills, weight loss or gain, fatigue Cardiovascular - No CP, palpitations, angina, MARTIN, SOB Respiratory - No SOB, MARTIN, wheeze, cough, sputum production HEENT - No diffculty swallowing, hearing, No nasal congestion or postnasal drip Gastrointestinal - No abdominal pain, nausea, GERD, constipation, diarrhea, blood in stool Musculoskeletal -See HPI All other systems negative d. PMH Patient Active Problem List Diagnoses ??? Anxiety [...] beer per week II. PHYSICAL EXAM: BP 105/71 Pulse 69 Wt 98.884 kg (218 lb) General - No acute distress, conversing without difficulty. ENT - oropharynx without lesions. Eyes - EOMI. No scleral icterus Neck - No lymphadenopathy, supple, no masses. No midline tenderness but noted significant muscle tension Extremities - No clubbing, cyanosis or edema. 5/5 strength throughout UE. Sensation intact. Impression Moderate to severe cervical spondylosis. Multilevel bilateral foraminal narrowing. 23 mm calculus, likely a densely calcified lymph node. III. ASSESSMENT/PLAN:Ken Mckeon 66 y.o. male presenting with neck pain with some radicular sxs likely due to significant DJD. Will send to spine center to discuss treatment option ? Injections. -stretching -ice/heat -tylenol for discomfort F/u after spine center appointment Meds reconciled documented in this encounter Plan of Treatment Upcoming Encounters Date Type Department Care Team (Late st Contact Info) Description 12/15/2024 11:30 AM EDT Office [place] [address] Charline Ziegler MD [facility] [place] [address] Scheduled Referrals Name Type Priority Associated Diagnoses Orde r Schedule Referral to Spine Center Outpatient Referral Routine Neck pain Ordered: 08/18/2012 documented as of this encounter Visit Diagnoses Diagnosis Neck pain- Primary Cervicalgia documented in this encounter Care Teams Odd Job Worker Relationship Specialty Start Date End Date Reji Adams MD [facility] [place] [address] PCP - General 02/12/12 06/27/15 documented as of this encounter
--- OUTSIDE RECORDS SUMMARY | 2024-07-09 11:21 | XMS_ITS | Encounter Summary ---
Author Organization [facility] Address [facility] [place] [address] Care Team Providers Care Chief Chemist Name Role Phone Ron Burns MD Primary Care Provider Reason for Visit * Reason Comments Vertigo Encounter Details Date Type Department Care Team (Late st Contact Info) Description 11/20/2011 2:20 PM EDT Office Visit [place] [address] Beatrice Broussard MD [facility] [place] [address] Bilateral carotid artery stenosis (Primary Dx); VV (varicose veins); Lightheadedness; Varicose veins of legs Discharge Disposition: Home Social History Tobacco Use [...] Sign Reading Time Taken Comments Blood Pressure 105/70 11/20/2011 1:54 PM EDT rig ht arm Pulse 65 11/20/2011 1:53 PM EDT Temperature - - Respiratory Rate - - Oxygen Saturation 100% 11/20/2011 1:53 PM EDT Inhaled Oxygen Concentration - - Weight 94.3 kg (208 lb) 11/20/2011 1:53 PM EDT Height 180.3 cm (5' 11) 11/20/2011 1:53 PM EDT Body Mass Index 29.01 11/20/2011 1:53 PM EDT documented in this encounter Progress Notes * Beatrice Broussard MD - 11/20/2011 3:38 PM EDT Ken Cole is a 66-year-old nondiabetic man seen in consultation for Dr. Burns to evaluate lightheadedness. For about one year the patient has noted that if he rises from a stooped position, he becomes lightheaded. He has never fallen or lost consciousness. He very rarely experiences vertigo. He believes that this may be correlated with dehydration. He does not have much of a sensation forthirst, and has to remind himself to drink liquids. He has no known heart disease but he does have intermittent mild shortness of breath. He has a long-standing history of varicose veins, and had varicose vein stripping when he was in high school. He has moderate leg swelling, for many years. He has some discomfort and itching from his varicose veins, especially when he walks or stands for long periods. He has never smoked but he does chew some tobacco. His brother recently had a cerebral aneurysm, and a recent MRA study here did not demonstrate any intracranial pathology. On careful questioning he has not had any clear neurologic symptoms. He certainly has not had TIAs or stroke referable to his carotid circulation. He has normal pedal pulses. He has large varicosities of the great saphenous system bilaterally, beginning in the upper thigh and extending well into the calf. In places these are as large as 8 mm diameter. He has some nonpitting edema of both lower legs. He does not have hyperpigmentation or changes of deep vein insufficiency. Carotid duplex scanning demonstrates little if any carotid or vertebral atherosclerosis. It is possible that dehydration could lead to his lightheadedness. It is not reproducible. He couldnot reproduce it in the office today, but indicates that he is well hydrated today. I doubt that itis vascular in etiology, both because of his normal duplex study and because it should be reproducible if vascular. I am concerned about the progressive enlargement of his varicose veins. They will be progressively more difficult to remove as they become more symptomatic and extensive in the future. I advised him to return for an ultrasound study of his superficial and deep veins to learn which valves are incompetent, in order to make better recommendation about potential varicose vein excisionversus chronic support stocking therapy. During this 40 minute visit, 30 minutes were spent explaining the various pathophysiology is to the patient and planning further evaluation. 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 On the left he has some deep vein incompetence proximally, but his distal deep veins are competent. On the right his deep veins are largely competent. His varicose veins are sufficiently extensive that they will require more and more involved surgery if they are not excised and stripped. He is having symptoms and has swelling which should be improved by excising the incompetent superficial veins. I discussed this with him by telephone. For now he will try 30-40 mm knee-high support stockings. He will contact me in the fut ure if his veins become more symptomatic or progress, and require surgical excision. documented in this encounter Plan of Treatment Upcoming Encounters Date Type Department Care Team (Late st Contact Info) Description 12/15/2024 11:30 AM EDT Office Visit [place] [address] Charline Ziegler MD [facility] [place] [address] documented as of this encounter Results * Venous Valvular Incomp, Bilat Legs (12/06/2011 12:26 PM EDT) VB Text Report Department: Vascular Surgery Lab Patient: [id number] (KEN COLE) CPT Code: 35517 ICD-9: 459.81 Referring Physician: BEATRICE BROUSSARD Indication: ?? Varicose veins and edema, s/p vein stripping many years ago. ICD9 Diagnosis Code: 459.81 Findings: Right ? Reflux?Diameter AP (mm) ??Depth [...] throughout the entire length of both extremities. Comparison: No previous study in our vascular lab database for comparison. Signed by BEATRICE BORUSSARD on 2011-12-11 09:09:04 AM VASCUBASE VB Text Report End of Report VASCUBASE 12/06/2011 12:2 6 PM EDT Beatrice Broussard MD VASCULAR ORDERABLES VASCUBASE * Cerebrovascular Duplex, Bilateral (11/20/2011 12:51 PM EDT) VB Text Report Department: Vascular Surgery Lab Patient: [id number] (KEN COLE) CPT Code: 66893 ICD-9: 780.4 Referring Physician: BEATRICE BROUSSARD Indication: ?? Vertigo ICD9 Diagnosis Code: 780.4 Findings: Right ICA Proximal ?PSV (cm/s): 70 ?EDV (cm/s): 24 ?ICA/CCA: 0.9 ?Plaque Structure: Echogenic ?Plaque Surface: Smooth ?%Stenosis: <15% ICA Distal ?PSV (cm/s): 62 ?EDV (cm/s): 25 ?ICA/CCA: 0.8 CCA Distal ?PSV (cm/s): 78 ?EDV (cm/s): 20 ?%Stenosis: Minimal CCA Proximal ?PSV (cm/s): 113 ?EDV (cm/s): 14 External Carotid Artery ?PSV (cm/s): 81 ?EDV (cm/s): 10 ?%Stenosis: Minimal Vertebral ?PSV (cm/s): 47 ?EDV (cm/s): 16 Left ICA Proximal ?PSV (cm/s): 55 ?EDV (cm/s): 16 ?ICA/CCA: 0.8 ?Plaque Structure: Echogenic ?Plaque Surface: Smooth ?%Stenosis: <15% ICA Distal ?PSV (cm/s): 63 ?EDV (cm/s): 24 ?ICA/CCA: 0.9 CCA Distal ?PSV (cm/s): 71 ?EDV (cm/s): 18 ?%Stenosis: Minimal CCA Proximal ?PSV (cm/s): 105 ?EDV (cm/s): 22 External Carotid Artery ?PSV (cm/s): 57 ?EDV (cm/s): 9 ?%Stenosis: Minimal Vertebral ?PSV (cm/s): 45 ?EDV (cm/s): 14 Interpretation: RIGHT: There is minimal smooth plaque in [...] with normal Doppler waveforms and velocities bilaterally. Accuracy Data: The following statistics are based on comparisons performed at [facility] between noninvasive carotid artery duplex data and arteriographic evaluation of the same patients from [id number]. Q / A Sens. Spec. PPV NPV Accuracy Carotid 93% 98% 97% 95% 96% Signed by BEATRICE BROUSSARD on 2011-11-20 03:39:39 PM VASCUBASE VB Text Report End of Report VASCUBASE 11/20/2011 12:5 1 PM EDT Beatrice Broussard MD VASCULAR ORDERABLES [facility]ASCU[facility] documented in this encounter Visit Diagnoses Diagnosis Bilateral carotid artery stenosis- Primary Occlusion and stenosis of multiple and bilateral precerebral arteries without mention of cerebral infarction VV (varicose veins) Asymptomatic varicose veins Lightheadedness Dizziness and giddiness Varicose veins of legs Asymptomatic varicose veins documented in this encounter Care Teams Chief Chemist Relationship Specialty Start Date End Date Ron Burns MD [address] [place] [address] PCP - General 11/08/11 02/11/12 documented as of this encounter
--- OUTSIDE RECORDS SUMMARY | 2024-07-09 11:21 | XMS_ITS | Encounter Summary ---
Author Organization [facility] Address [facility] [place] [address] Care Team Providers Care Compliance Intern Name Role Phone Reji Adams MD Primary Care Provider [phone] Reason for Visit * Reason Comments Post Hospital Discharge vein surgery Encounter Details Date Type Department Care Team (Late st Contact Info) Description 06/24/2012 4:00 PM EST Office Visit [place] [address] Thien Broussard MD [facility] [place] [address] Varicose veins of legs (Primary Dx) Discharge Disposition: Home Social History [...] Sign Reading Time Taken Comments Blood Pressure 110/72 06/24/2012 4:00 PM EST Pulse - - Temperature - - Respiratory Rate - - Oxygen Saturation - - Inhaled Oxygen Concentration - - Weight 97.5 kg (215 lb) 06/24/2012 4:00 PM EST Height 177.8 cm (5' 10) 06/24/2012 4:00 PM EST Body Mass Index 30.85 06/24/2012 4:00 PM EST documented in this encounter Progress Notes * Thien Broussard MD - 06/24/2012 4:14 PM EST Ken Mckeon is a 66-year-old man who returns for followup 3 weeks following bilateral great saphenous vein stripping, with high ligation, and excision of multiple varicose veins. He has noticed left leg swelling bilaterally. His incisions are all healing well. He had some ecchymoses which are resolving. His only residual concern is some itching behind his right knee where he does have some verrucous veins which we were not able to reach from the supine position. The symptoms are not as bad, however, and I suggested that he take several months to allow everything to heal before deciding whether those are sufficiently symptomatic to justify treatment. I detect no problems following his surgery. documented in this encounter Plan of Treatment Upcoming Encounters Date Type Department Care Team (Late st Contact Info) Description 12/15/2024 11:30 AM EDT Office [place] [address] Charline Ziegler MD [facility] [place] [address] documented as of this encounter Visit Diagnoses Diagnosis Varicose veins of legs- Primary Asymptomatic varicose veins documented in this encounter Care Teams Compliance Intern Relationship Specialty Start Date End Date Reji Adams MD [facility] [place] [address] PCP - General 02/12/12 06/27/15 documented as of this encounter
--- OUTSIDE RECORDS SUMMARY | 2024-07-09 11:21 | XMS_ITS | Encounter Summary ---
Author Organization [facility] Address [facility] [place] [address] Care Team Providers Care Community Living Specialist Name Role Phone Ron Burns MD Primary Care Provider Reason for Visit * Reason Onset Date Comments Biopsy 01/11/2011 Encounter Details Date Type Department Care Team (Late st Contact Info) Description 01/11/2011 [place] [address] Myra Siddiqi MD [facility] DR MADINA [place] [address] Biopsy Social History Tobacco Use Types Packs/Day Years Used Date Smoking Tobacco: Never Assessed Sex and Gender Information Value Date Recorded Sex Assigned at Choose not to disclose 02/2023 8:26 AM EDT Gender Identity Not on file Sexual Orientation Choose not to disclose 2022 8:26 AM EDT documented as of this encounter Miscellaneous Notes * Telephone Encounter - Dorinda Ugalde LPN - 01/11/2011 10:41 AM EDT Received phone call from patient with questions regarding biopsy results. Patient reported that he was contacted by a nurse regarding his biopsy and was informed that it was a wart and other stuff and he should return in 2 months for it to be rechecked. Patient stated that he had been thinking about it and would like more details about the pathology and subsequent follow up visit. Informed patient that his biopsy pathology reported verruca and it could not exclude squamous cell carcinoma. Educated patient on the nature of warts and SCC. Informed him that Dr. Siddiqi would like him to return in two months to see if any regrowth has occurred. Patient stated that he had some pain and respiratory discomfort a day after the biopsy. Informed him that he should inform MD and Dentist before future anesthesia is used. Patient verbalized understanding. documented in this encounter Plan of Treatment Upcoming Encounters Date Type Department Care Team (Late st Contact Info) Description 12/15/2024 11:30 AM EDT Office [place] [address] Charline Ziegler MD [facility] [place] [address] documented as of this encounter Visit Diagnoses Not on filedocumented in this encounter Care Teams Community Living Specialist Relationship Specialty Start Date End Date Ron Burns MD [address] [facility] [address] [place] [address] PCP - General 06/19/10 01/22/11 documented as of this encounter
--- OUTSIDE RECORDS SUMMARY | 2024-07-09 11:21 | XMS_ITS | Encounter Summary ---
Author Organization [facility] [place] [address] Care Team Providers Care Resaw Machine Operator Name Role Phone Evon Kamara APRN Primary Care Provider Reason for Visit * Reason Comments Dizziness for 4 days Fatigue for 4 days Encounter Details Date Type Department Care Team (Late st Contact Info) Description 01/23/2011 1:30 PM EDT Office Visit Internal Medicine at [address] [address] Evon Kamara APRN [facility] [place] [address] Fatigue (Primary Dx) Discharge Disposition: Home Social History Tobacco Use Types Packs/Day Years Used Date Smoking Tobacco: Never Comments:chews tobacco Alcohol Use Standard Drinks/Week Comments Not Asked [...] Sign Reading Time Taken Comments Blood Pressure 107/72 01/23/2011 1:30 PM EDT Pulse 76 01/23/2011 1:30 PM EDT Temperature 36.7 ??C (98.1 ??F) 01/23/2011 1:30 PM ED T Respiratory Rate - - Oxygen Saturation 97% 01/23/2011 1:30 PM EDT Inhaled Oxygen Concentration - - Weight 102.5 kg (226 lb) 01/23/2011 1:30 PM EDT Height - - Body Mass Index - - documented in this encounter Progress Notes * Evon Kamara APRN - 01/23/2011 2:11 PM EDT Subjective: Patient ID: Ken Mckeon is a 65 y.o. male. HPI here for acute visit- 4-5 day hx of not feeling well. Feeling loggie, fatigued. Able to do all his ADLs w/o problems but just tired all over. no myalgias, arthralgias Episodes during the day of air hunger or wanting to take a deep breath. no sob, pnd, orthopnea. newmild tickle in the back of his throat. no dysphagia. sl decrease in his appetite but eating and drinking. no nausea/vomiting/diarrhea. Increased urination , no dysuria. Has been getting up to void in the night 2-3 times which is new to him. no DC. sexually active, less libido only. no rectal pain Review of Systems Objective: Physical Exam NAD heent: neg throat: mild redness, no lesions no ester chest: cta a/p cv: s1s2 reg no mrg no chest wall tenderness abd: soft, nt, nabs, no hsm. no inguinal ester rectal: boggy, sl tender prostate. UA dip. -tr blood Assessment and Plan: Prostatitis: septra ds i po bid x2 weeks, fluids, rest. review sx to report cheng. I had wanted to obtain cbc and bnp but pt would like to wait on these due to cost. We will hold off for now. He will call w/status report on Friday. documented in this encounter Plan of Treatment Upcoming Encounters Date Type Department Care Team (Late st Contact Info) Description 12/15/2024 11:30 AM EDT Office Visit [place] [address] Charline Ziegler MD [facility] [place] [place] [address] documented as of this encounter Procedures Procedure Name Priority Date/Time Associated Diagnosis Comments POCT URINE DIPSTICK Routine 01/23/2011 2 :11 PM EDT Fatigue documented in this encounter Results * POCT urine dipstick (01/23/2011 2:11 PM EDT) POC Sp [place] 1.015 1.002 - 1.030 POC pH, UA [...] Blood, UA neg Negative - Negative denise/uL Mirlande New MD POINT OF CARE TEST O RDERABLES documented in this encounter Visit Diagnoses Diagnosis Fatigue- Primary Other malaise and fatigue documented in this encounter Care Teams Resaw Machine Operator Relationship Specialty Start Date End Date Evon Kamara, MARYBEL [facility] [address] [facility] [place] [address] PCP - General 01/23/11 11/07/11 documented as of this encounter
--- OUTSIDE RECORDS SUMMARY | 2024-07-09 11:21 | XMS_ITS | Encounter Summary ---
Author Organization [facility] Address [facility] [place] [address] Care Team Providers Care Program Specialist Name Role Phone Reji Adams MD Primary Care Provider [phone] Encounter Details Date Type Department Care Team (Latest Contact Info) Description 06/02/2012 5:48 AM EST - 06/02/2012 2:59 PM EST Hospital Encounter [place] [address] Beatrice Broussard MD [facility] [place] [address] Discharge Disposition: Home Social History Tobacco Use [...] Sign Reading Time Taken Comments Blood Pressure 110/73 06/02/2012 2:09 PM EST Pulse 78 06/02/2012 2:09 PM EST Temperature 36.2 ??C (97.2 ??F) 06/02/2012 12:[address] Respiratory Rate 16 06/02/2012 2:09 PM EST Oxygen Saturation 97% 06/02/2012 2:09 PM EST Inhaled Oxygen Concentration - [...] it, or have other questions please call [phone] as your followup is very important to us. documented in this encounter Medications at Time of Discharge Medication Sig Dispensed Refills Start Date End Date multivitamin (THERAGRAN) tablet Take 1 tablet by mouth daily. aspirin 81 mg EC tablet Take 81 mg by mouth daily. 08/02/2014 CANO FLAVOR (CANO CONCENTRATE ORAL) Take 1 capsule by mouth daily. 11/16/2012 Saw [place] 500 mg capsule Take 500 mg by [...] anterior mid thigh. Ranjan wrap marked with [place] at site aprrox. 6cm. Reinforced with ABD [...] MD - 06/02/2012 12:15 PM EST [facility] [place] Patient Name: Ken Mckeon : [id number] MR#: [id number] Case Date: 06/02/2012 Surgeon: Surgeon(s) and Role: [...] Operative Note Patient Name: Ken Mckeon : [id number] MR#: [id number] Case Date: 06/02/2012 Surgeon: Surgeon(s) and Role: [...] 11:30 AM EDT Office [place] [address] Charline Ziegler MD [facility] [place] [address] documented as of this encounter Procedures Procedure Name Priority Date/Time Associated Diagnosis Comments STAB PHLEBECTOMY KARLI VEINS, EXTREMITY 10-20 INCISIONS-SANTI (WRVU 4.8) 06/02/2012 7:18 AM EST Venous insufficiency Varicose veins LIGATION\DIV\STRIP GREATER SAPHENOUS VEIN (WRVU 8.16) 06/02/2012 7:18 AM EST Venous insufficiency Varicose veins documented in this encounter Visit Diagnoses Not [...] AM EST 1,000 mLs 100 mL/hr vancomycin 1 g in sodium chloride 0.9% [...] Martínez) documented in this encounter Care Teams Program Specialist Relationship Specialty Start Date End Date Reji Adams MD [facility] [address] PCP - General 02/12/12 06/27/15 documented as of this encounter
--- OUTSIDE RECORDS SUMMARY | 2024-07-09 11:21 | XMS_ITS | Encounter Summary ---
Author Organization [facility] [place] [address] Care Team Providers Care Skydiving Instructor Name Role Phone Ron Burns MD Primary Care Provider Encounter Details Date Type Department Care Team (Late st Contact Info) Description 09/19/2010 8:30 AM EST Office Visit Internal Medicine at [address] [address] Evon Kamara APRN [facility] [place] [address] Discharge Disposition: Home Social History Tobacco Use [...] 11:30 AM EDT Office [place] [address] Charline Ziegler MD [facility] [place] [address] documented as of this encounter Procedures Procedure Name Priority Date/Time Associated Diagnosis Comments PSA SCREEN Routine 09/19/2010 9:32 AM EST DIFFERENTIAL, AUTOMATED Routine 09/19/2010 9:32 AM EST CBC (WITH DIFF) Routine 09/19/2010 9:32 AM EST TSH Routine 09/19/2010 9:32 AM EST LIPID PANEL (REFLEX DIRECT LDL) Routine 09/19/2010 9:32 AM EST COMPREHENSIVE METABOLIC PANEL Routine 09/19/2010 9:32 AM EST documented in this encounter Results * REFLEX LAB-A-DIFF (09/19/2010 9:32 AM EST) Neutrophil % 49.5 34.0 - 71.0 % [facility] Neutrophil Absolute 3.25 1.50 - 6.30 x10(3)/mcL [facility] Lymph % 38.5 19.0 - 53.0 % [facility] Lymphocytes Abs 2.5 1.0 - 3.6 x10(3)/mcL [facility] Monocyte % 8.1 4.0 - 13.0 % [facility] Monocyte Abs 0.5 0.2 - 1.0 x10(3)/mcL [facility] Eos % 3.4 0.0 - 7.0 % [facility] Eosinophils Abs 0.2 0.0 - 0.5 x10(3)/mcL [facility] Basophil % 0.3 0.0 - 2.0 % [facility]ILLENNIUM Baso [...] 0.05 x10(3)/mcL [facility] Blood specimen (specimen) 09/19/2010 9:32 AM EST 09/19/2010 12:38 PM EST Evon Kamara APRN HEMATOLOGY ORDERABLE [facility] * CBC (09/19/2010 9:32 AM EST) White Blood Cell 6.6 4.0 - 10.0 x10(3)/mcL [facility] Red Blood Cell 5.35 4.63 - 6.08 x10(6)/mcL [facility] Hemoglobin 16.3 13.7 - 17.5 gm/dL [facility] Hematocrit 47.5 40.0 - 51.0 % [facility]ILLEN[facility] Mean Cell Volume 88.8 79.0 - 92.0 fL [facility] Mean Cell Hemoglobin 30.5 25.6 - 32.2 pg [facility] Mean Cell Hemoglobin Concentration 34.3 32.0 - 36.5 gm/dL [facility] Platelet 192 145 - 370 x10(3)/mcL [facility] RDW Standard Deviation 44.4 35.0 - 46.0 fL [facility] RDW coefficient of variation 13.8 10.9 - 14.4 % [facility] Mean Platelet Volume 10.9 9.0 - 12.0 fL [facility] Blood specimen (specimen) 09/19/2010 9:32 AM EST 09/19/2010 12:38 PM EST Evon Kamara APRN HEMATOLOGY ORDERABLE [facility] * PSA SCREEN (09/19/2010 9:32 AM EST) PSA Screen 1.83 0.00 - 4.00 ng/mL [facility] Blood specimen (specimen) 09/19/2010 9:32 AM EST 09/19/2010 12:36 PM EST Evon Kamara HAND BULLDOZER CHEMISTRY ORDERABLES [facility] * TSH (09/19/2010 9:32 AM EST) Thyroid Stimulating Hormone 1.85 0.27 - 4.20 mcIU/mL [facility] Comment: Mccurtain Cord Blood Reference Range: ??0.35 23.00 uIU/mL Blood specimen (specimen) 09/19/2010 9:32 AM EST 09/19/2010 12:36 PM EST Evon Doug Anh HAND BULLDOZER CHEMISTRY ORDERABLES Performing Organization Address [facility] Co de Phone Number [facility] * (ABNORMAL) LIPID PANEL (09/19/2010 9:32 AM EST) Cholesterol, Total 195 <=199 mg/dL [facility] Comment: Recommendations of the NCEP Adult Treatment Panel for the following risk cutoff thresholds for the [place] population: Desirable: <200 mg/dL Borderline High: 200-239 mg/dL High: > or = 240 mg/dL Triglyceride 129 <=149 mg/dL [facility] Comment: Reference Range: Normal triglycerides: ??<150 mg/dL Borderline high: ??150-199 mg/dL High: ??200-499 mg/dL Very high: ??>gp=940 mg/dL MARKEL 2001; 285(19):3036-1948 HDL Cholesterol 55 >=40 mg/dL [facility] Comment: Reference range: ??Low HDL: ?? < 40 mg/dL ??Normal: ?40-60 mg/dL ??Desirable: > 60 mg/dL MARKEL 2001; 285(19):0362-4691 LDL Cholesterol 114(H) <=99 mg/dL [facility] Comment: Reference range: ?? Optimal: ?<100 mg/dL ?? Near Optimal/Above Optimal: ?? 100-129 mg/dL ?? Borderline high: ?130-159 mg/dL ?? High: ? 160-189 mg/dL ?? Very high: ?>hg=764 mg/dL MARKEL 2001: 285(19):8712-0152 Cholesterol/HDL Ratio 3.5 ratio [facility] Comment: A Cholesterol to HDL ratio below 4:1 is desirable. ??Studies suggest that increased CAD risk occurs at ratios above 5 for females and above 6 for men. ? [place] Heart Association ??(http://www.americanheart.org) ? Eusebia Int Med, 1994; 121:641 ? AM J Med, 1998; 105(1A):48S Blood specimen (specimen) 09/19/2010 9:32 AM EST 09/19/2010 12:36 PM EST Evon Kamara APRN CHEMISTRY ORDERABLES [facility] * (ABNORMAL) COMPREHENSIVE METABOLIC PANEL (NON-FASTING) (09/19/2010 9:32 AM EST) Glucose 94 60 - 199 mg/dL [facility] Comment:Diabetes: >=200 mg/d L plus symptoms Blood Urea Nitrogen 14 10 - 20 mg/dL [facility] Creatinine 0.92 0.80 - 1.50 mg/dL [facility] Sodium 141 135 - 145 mmol/L [facility] Potassium 4.0 3.5 - 5.0 mmol/L [facility] Comment: Please note: ??Patients with WBC >100,000 may have falsely elevated Potassium levels. ??For accurate Potassium quantification in these patients send serum separator tube (gold top) for subsequent determinations. ??Contact the Clinical Chemistry Laboratory if there are any questions. Chloride 103 98 - 107 mmol/L [facility] Carbon Dioxide 32(H) 22 - 31 mmol/L [facility] Anion Gap 6 5 - 15 mmol/L [facility] Calcium 9.2 8.5 - 10.5 mg/dL [facility] Protein, Total 7.2 6.4 - 8.3 gm/dL [facility] Albumin 4.8 3.2 - 5.2 gm/dL [facility] Aspartate Aminotransferase 25 0 - 39 unit/L [facility] Alanine Aminotransferase 30 0 - 55 unit/L [facility] Alkaline Phosphatase 54 40 - 120 unit/L [facility] Bilirubin, Total 0.6 0.2 - 1.3 mg/dL [facility] Bilirubin, Direct Not Perf 0.0 - 0.3 mg/dL [facility] Comment:Specimen lipemic or turbid in appearance, unsuitable for analysis. Est Glomerular Filtration Rate >60 >=60 [facility] Comment: The National Kidney Disease Education Program (NKDEP) has recommended all laboratories report estimated GFR (eGFR) along with plasma creatinine measurements to assist you with recognition of early kidney disease. Caveats: ??Plasma creatinine should be at steady-state (unchanged within the past week). ??Patient age > = 18 years, and for Americans multiply eGFR by 1.2. At present, NKDEP does NOT recommend using [...] with diabetic kidney disease. References: http://nkdep.nih.gov/resources/NKDEP_Suggestn4Labs_0606_508.pdf http://www.kidney.org/professionals/kls/pdf/faq_gfr.pdf Blood specimen (specimen) 09/19/2010 9:32 AM EST 09/19/2010 12:36 PM EST Evon Kamara APRN CHEMISTRY ORDERABLES [facility] documented in this encounter Visit Diagnoses Not on filedocumented in this encounter Care Teams Skydiving Instructor Relationship Specialty Start Date End Date Ron Burns MD [address] [place] [address] PCP - General 06/19/10 01/22/11 documented as of this encounter
--- OUTSIDE RECORDS SUMMARY | 2024-07-09 11:21 | XMS_ITS | Encounter Summary ---
Author Organization [facility] Address [facility] [place] [address] Care Team Providers Care Drug Safety Assistant Name Role Phone Ron Burns MD Primary Care Provider [phone] Encounter Details Date Type Department Care Team (Late st Contact Info) Description 12/06/2011 12:30 PM EDT Office [place] [phone] Chely Katz [place] VV (varicose veins) Social History Tobacco Use Types Packs/Day Years [...] 11:30 AM EDT Office [place] [phone] Charline Ziegler MD [facility] [place] [address] documented as of this encounter Procedures Procedure Name Priority Date/Time Associated Diagnosis Comments VENOUS VALVULAR INCOMP, BILAT LEGS Routine 12/06/2011 12:26 PM EDT VV (varicose veins) documented in this encounter Results * Venous Valvular Incomp, Bilat Legs (12/06/2011 12:26 PM EDT) VB Text Report Department: Vascular Surgery Lab Patient: [id number] (KEN COLE) CPT Code: 57862 ICD-9: 459.81 Referring Physician: BEATRICE RODRÍGUEZ Indication: ?? Varicose veins and edema, s/p [...] lab database for comparison. Signed by BEATRICE RODRÍGUEZ on 2011-12-11 09:09:04 AM [facility] VB Text Report End of Report [facility] 12/06/2011 12:2 6 PM EDT Beatrice Rodríguez MD VASCULAR ORDERABLES [facility] documented in this encounter Visit Diagnoses Diagnosis VV (varicose veins) Asymptomatic varicose veins documented in this encounter Care Teams Drug Safety Assistant Relationship Specialty Start Date End Date Ron Burns MD [address] [facility] [address] [place] [address] PCP - General 11/08/11 02/11/12 documented as of this encounter
--- OUTSIDE RECORDS SUMMARY | 2024-07-09 11:21 | XMS_ITS | Encounter Summary ---
Author Organization [facility] [place] [address] Care Team Providers Care Pointing Machine Operator Name Role Phone Reji [place] MD Primary Care Provider [phone] Reason for Visit * Reason Onset Date Comments Results 07/27/2012 Encounter Details Date Type Department Care Team (Late st Contact Info) Description 07/27/2012 Telephone Internal Medicine at [place] [id number] Dong Holbrook, RN Results Social History Tobacco [...] Telephone Encounter - Dong Holbrook RN - 07/27/2012 5:10 PM EST Already got a call on this. * Telephone Encounter - Dong Holbrook RN - 07/27/2012 5:10 PM EST Message copied by DONG HOLBROOK on FriJul 27, 2012 5:10 PM ------ Message from: CHRISTI PANDEY Created: FriJul 24, 2012 9:55 AM Please call pt regarding all normal labs with thyroid and glucose. See if he has started the clonazepam at night time? Can provided him information regarding his bloating with the fodmap diet and we can send this to him. thanks documented in this encounter Plan of Treatment Upcoming Encounters Date Type Department Care Team (Late st Contact Info) Description 12/15/2024 11:30 AM EDT Office [place] [address] Charline Ziegler MD [facility] [place] [address] documented as of this encounter Visit Diagnoses Not on filedocumented in this encounter Care Teams Pointing Machine Operator Relationship Specialty Start Date End Date Reji [place] MD [facility] [place] [address] PCP - General 02/12/12 06/27/15 documented as of this encounter
--- OUTSIDE RECORDS SUMMARY | 2024-07-09 11:21 | XMS_ITS | Encounter Summary ---
Author Organization [facility] Address [facility] [place] [address] Care Team Providers Care Acid Extractor Name Role Phone Reji [place] MD Primary Care Provider [phone] Encounter Details Date Type Department Care Team (Latest Contact Info) Description 05/14/2012 11:22 AM EDT - 05/14/2012 11:59 PM EDT Hospital [place] [address] Reji [place] MD [facility] GENER[place] [address] Immune To Varicella Discharge Disposition: Home Social History Tobacco Use [...] Sig Dispensed Refills Start Date End Date Mavis Extract 500 mg Cap Take 1 [...] 11:30 AM EDT Office Visit [place] [address] Charline Ziegler MD [facility] [place] [place] [address] documented as of this encounter Procedures Procedure Name Priority Date/Time Associated Diagnosis Comments VARICELLA ZOSTER ANTIBODY, IGG Routine 05/14/2012 11:28 AM EDT Immune To Varicella documented in this encounter Results * Varicella zoster Antibody, IgG (05/14/2012 11:28 AM EDT) Varicella Zoster Antibody IgG Positive [facility] Blood specimen (specimen) 05/14/2012 11:28 AM EDT 05/14/2012 2:18 PM EDT Narrative Resulting Agency Comment Spec In Lab Reji [place] MD IMMUNOLOGY ORDERABLE S [facility] [employer] documented in this encounter Visit Diagnoses Diagnosis Immune to varicella Other specified conditions influencing health status documented in this encounter Care Teams Acid Extractor Relationship Specialty Start Date End Date Reji [place] MD [facility] GENER[place] [address] PCP - General 02/12/12 06/27/15 documented as of this encounter
--- OUTSIDE RECORDS SUMMARY | 2024-07-09 11:21 | XMS_ITS | Encounter Summary ---
Author Organization [facility] [place] [address] Care Team Providers Care Engraver Wood Name Role Phone Evon Kamara APRN Primary Care Provider Reason for Visit * Reason Onset Date Comments Results 01/31/2011 Encounter Details Date Type Department Care Team (Late st Contact Info) Description 01/31/2011 Telephone Internal Medicine at [address] [address] Evon Kamara APRN [facility] [place] [address] Results Social History Tobacco Use Types Packs/Day [...] * Telephone Encounter - Loulou Rivas - 01/31/2011 2:53 PM EDT PT IS CALLING TO LET YOU KNOW THAT THE PROBLEM HE SAW YOU FOR THE OTHER DAY HAS NOT GONE AWAY. PLEASE CALL TO DISCUSS WITH HIM. documented in this encounter Plan of Treatment Upcoming Encounters Date Type Department Care Team (Late st Contact Info) Description 12/15/2024 11:30 AM EDT Office [place] [address] Charline Ziegler MD [facility] [place] [address] documented as of this encounter Visit Diagnoses Not on filedocumented in this encounter Care Teams Engraver Wood Relationship Specialty Start Date End Date Evon Kamara APRN [facility] [address] [place] [place] [address] PCP - General 01/23/11 11/07/11 documented as of this encounter
--- OUTSIDE RECORDS SUMMARY | 2024-07-09 11:21 | XMS_ITS | Encounter Summary ---
Author Organization [facility] [place] [address] Care Team Providers Care Awake Overnight Monitor Name Role Phone Evon Kamara APRN Primary Care Provider [phone] Reason for Visit * Reason Comments URI sinus problems Encounter Details Date Type Department Care Team (Late st Contact Info) Description 03/12/2011 2:00 PM EDT Follow-Up Internal Medicine at [address] [address] Evon Kamara APRN [facility] [place] [address] Nasal congestion (Primary Dx) Discharge Disposition: Home Social History [...] Sign Reading Time Taken Comments Blood Pressure 88/56 03/12/2011 2:08 PM EDT Pulse 64 03/12/2011 2:08 PM EDT Temperature 36.6 ??C (97.8 ??F) 03/12/2011 2:08 PM ED T Respiratory Rate - - Oxygen Saturation 100% 03/12/2011 2:08 PM EDT Inhaled Oxygen Concentration - - Weight 100 kg (220 lb 8 oz) 03/12/2011 2:08 PM E DT Height 180.3 cm (5' 11) 03/12/2011 2:08 PM EDT Body Mass Index 30.75 03/12/2011 2:08 PM EDT documented in this encounter Patient Instructions * Patient Instructions* Evon Kamara APRN - 03/12/2011 2:29 PM EDT saline nasal spray 2 sprays- 3- 4 times a day. documented in this encounter Progress Notes * Evon Kamara APRN - 03/12/2011 2:26 PM EDT Subjective: Patient ID: Ken Mckeon is a 65 y.o. male. HPI seen last month w/variety of sx- see that note. He reports the ltheadedness which had been long standing is better but not resolved. no falls, no vertigo. He will have cataract extraction 03/21 Dr. Bateman. no air hunger. no fever,chills. He still does have fatigue. He declined the labs last visit. CC: R sided nasal congestion and feeling can't get good air. He used OTC sudafed and it was great but caused his heart to race. Review of Systems Objective: Physical Exam heent: no sinus pain ears-neg nose: R sided, small amt clr DC, no polyps , L wnl throat: neg no ester chest: cta a/p Assessment and Plan: nasal congestion: trial saline nasal spray, Flonase. call in 3 weeks if not improving. He did have a CXR in 10/2010 which was normal except ? nipple shadow. He reports that he was notified about this finding and did have a f/u CXR @ [facility]. He will call and have result sent to us. documented in this encounter Plan of Treatment Upcoming Encounters Date Type Department Care Team (Late st Contact Info) Description 12/15/2024 11:30 AM EDT Office Visit [place] [address] Charline Ziegler MD [facility] [place] [address] documented as of this encounter Visit Diagnoses Diagnosis Nasal congestion- Primary Other diseases of nasal cavity and sinuses documented in this encounter Care Teams Awake Overnight Monitor Relationship Specialty Start Date End Date Evon Kamara, [employer] [facility] [place] [place] [address] PCP - General 01/23/11 11/07/11 documented as of this encounter
--- OUTSIDE RECORDS SUMMARY | 2024-07-09 11:21 | XMS_ITS | Encounter Summary ---
Author Organization [facility] [place] [address] Care Team Providers Care Occupational Health Physician Name Role Phone Evon Kamara APRN Primary Care Provider [phone] Encounter Details Date Type Department Care Team (Latest Contact Info) Description 10/24/2011 10:51 AM EDT - 10/24/2011 11:59 PM EDT [place] [address] Ron Burns MD [address] [facility] [address] [place] [address] Discharge Disposition: Home Social History Tobacco Use [...] Sig Dispensed Refills Start Date End Date codeine-guaifenesin (GUAIFENESIN AC) 10-100 mg/5 mL liquid Take 5 mLs by mouth 3 times daily as needed for Cough. 120 mL 0 09/22/2011 11/11/2011 azithromycin (ZITHROMAX) 250 mg tablet Take by mouth. Take 2 tablets on the first day, then 1 tablet each day for the next 4 days 6 tablet 0 09/22/2011 11/11/2011 aspirin 500 mg EC tablet Take 500 mg by mouth as needed. Every 4-6 hours prn 07/23/2012 naproxen sodium (ALEVE) 220 mg tablet Take 220 mg by mouth as needed. 01/04/2011 07/09/2017 documented as of this encounter Plan of Treatment Upcoming Encounters Date Type Department Care Team (Late st Contact Info) Description 12/15/2024 11:30 AM EDT Office [place] [address] Charline Ziegler MD [facility] [place] [address] documented as of this encounter Procedures Procedure Name Priority Date/Time Associated Diagnosis Comments PSA SCREEN Routine 10/24/2011 11:02 AM EDT DIFFERENTIAL, AUTOMATED Routine 10/24/2011 11:02 AM EDT VITAMIN D, 25-HYDROXY Routine 10/24/2011 11:02 AM EDT CBC (WITH DIFF) Routine 10/24/2011 11:02 AM EDT HEMOGLOBIN A1C Routine 10/24/2011 11:02 AM EDT LIPID PANEL (REFLEX DIRECT LDL) Routine 10/24/2011 11:02 AM EDT COMPREHENSIVE METABOLIC PANEL Routine 10/24/2011 11:02 AM EDT documented in this encounter Results * DIFFERENTIAL, AUTOMATED (10/24/2011 11:02 AM EDT) Neutrophil % 55.2 34.0 - 71.0 % CERNER MILLENNIUM Neutrophil Absolute 3.37 1.50 - 6.30 x10(3)/mcL CERNER MILLENNIUM Lymph % 35.9 19.0 - 53.0 % CERNER MILLENNIUM Lymphocytes Abs 2.2 1.0 - 3.6 x10(3)/mcL CERNER MILLENNIUM Monocyte % 6.0 4.0 - 13.0 % CERNER MILLENNIUM Monocyte Abs 0.4 0.2 - 1.0 x10(3)/mcL CERNER MILLENNIUM Eos % 2.6 0.0 - 7.0 % CERNER MILLENNIUM Eosinophils Abs 0.2 0.0 - 0.5 x10(3)/mcL CERNER MILLENNIUM Basophil % 0.3 0.0 - 2.0 % CERNER MILLENNIUM Baso Absolute 0.0 0.0 - 0.2 x10(3)/mcL CERNER MILLENNIUM Immature Gran % 0.00 0.00 - 0.66 % CERNER MILLENNIUM Comment: Immature granulocytes(IG's)percentage and absolute count will include metamyelocytes, myelocytes, and promyelocytes. Blood smears from CBCs yielding IG's will be scanned manually for concordance. If this scan disagrees with the automated IG or if promyelocytes are noted, a manual differential will be performed. Immature Gran Absolute 0.00 0.00 - 0.05 x10(3)/mcL CERNER MILLENNIUM Blood specimen (specimen) 10/24/2011 11:02 AM EDT 10/24/2011 11:11 AM EDT Ron Burns MD HEMATOLOGY ORDERABLE S [facility] * (ABNORMAL) LIPID PANEL (FASTING) (10/24/2011 11:02 AM EDT) Cholesterol, Total 189 <=199 mg/dL CERNER MILLENNIUM Comment: Recommendations of the NCEP Adult Treatment Panel for the following risk cutoff thresholds for the [place] population: Desirable: <200 mg/dL Borderline High: 200-239 mg/dL High: > or = 240 mg/dL Triglyceride 83 <=149 mg/dL CERNER MILLENNIUM Comment: Reference Range: Normal triglycerides: ??<150 mg/dL Borderline high: ??150-199 mg/dL High: ??200-499 mg/dL Very high: ??>ki=737 mg/dL MARKEL 2001; 285(19):0348-2149 HDL Cholesterol 62 >=40 mg/dL CER NER MILLENNIUM Comment: Reference range: ??Low HDL: ?? < 40 mg/dL ??Normal: ?40-60 mg/dL ??Desirable: > 60 mg/dL MARKEL 2001; 285(19):9625-7867 LDL Cholesterol 110(H) <=99 mg/dL [facility] Comment: Reference range: ?? Optimal: ?<100 mg/dL ?? Near Optimal/Above Optimal: ?? 100-129 mg/dL ?? Borderline high: ?130-159 mg/dL ?? High: ? 160-189 mg/dL ?? Very high: ?>ga=993 mg/dL MARKEL 2001: 285(19):0706-0976 Cholesterol/HDL Ratio 3.0 ratio [facility] Comment: A Cholesterol to HDL ratio below 4:1 is desirable. ??Studies suggest that increased CAD risk occurs at ratios above 5 for females and above 6 for men. ? [place] Heart Association ??(http://www.americanheart.org) ? Eusebia Int Med, 1994; 121:641 ? AM J Med, 1998; 105(1A):48S Blood specimen (specimen) 10/24/2011 11:02 AM EDT 10/24/2011 11:11 AM EDT Narrative Resulting Agency Comment Spec In Lab Ron Burns MD CHEMISTRY ORDERABLES [facility] * COMPREHENSIVE METABOLIC PANEL (NON-FASTING) (10/24/2011 11:02 AM EDT) Glucose 100 60 - 199 mg/dL [facility] Comment:Diabetes: >=200 mg/d L plus symptoms Blood Urea Nitrogen 14 10 - 20 mg/dL [facility] Creatinine 1.06 0.80 - 1.50 mg/dL CERNER MILLENNIUM Sodium 140 135 - 145 mmol/L CERNER MILLENNIUM Potassium 4.5 3.5 - 5.0 mmol/L CERNER MILLENNIUM Comment: Please note: ??Patients with WBC >100,000 may have falsely elevated Potassium levels. ??For accurate Potassium quantification in these patients send serum separator tube (gold top) for subsequent determinations. ??Contact the Clinical Chemistry Laboratory if there are any questions. Chloride 103 98 - 107 mmol/L CERNER MILLENNIUM Carbon Dioxide 31 22 - 31 mmol/L CERNER MILLENNIUM Anion Gap 6 5 - 15 mmol/L CERNER MILLENNIUM Calcium 9.6 8.5 - 10.5 mg/dL CERNER MILLENNIUM Protein, Total 7.2 6.4 - 8.3 gm/dL CERNER MILLENNIUM Albumin 4.4 3.2 - 5.2 gm/dL CERNER MILLENNIUM Aspartate Aminotransferase 18 0 - 39 unit/L CERNER MILLENNIUM Alanine Aminotransferase 16 0 - 55 unit/L CERNER MILLENNIUM Alkaline Phosphatase 57 40 - 120 unit/L CERNER MILLENNIUM Bilirubin, Total 1.0 0.2 - 1.3 mg/dL CERNER MILLENNIUM Bilirubin, Direct 0.2 0.0 - 0.3 mg/dL CERNER MILLENNIUM Est [...] J Am Soc Nephrol;6:1963-72. Blood specimen (specimen) 10/24/2011 11:02 AM EDT 10/24/2011 11:11 AM EDT Narrative Resulting Agency Comment Spec In Lab Ron Burns MD CHEMISTRY ORDERABLES [facility] * VIT D TOTAL EVALUATION (10/24/2011 11:02 AM EDT) Vitamin D Total 25 OH 34 30 - 100 ng/mL [facility] Comment: Deficient <10 ng/mL Insufficient 10 to 29 ng/mL Sufficient 30 to 100 ng/mL Potential Intoxication >100 ng/mL According to the US National Osteoporosis Foundation, Vitamin D concentrations >30 ng/mL are sufficient to protect bone health. ??The National Kidney Foundation has similarly stated that patients with Vitamin D concentrations <30ng/mL should be considered to be insufficient or deficient. http://www.kidney.org/professionals/KDOQI/guidelines_bone/Guide7.htm http://www.nof.org/professionals/clinical-guidelines The IDS iSYS Vitamin D Immunoassay detects both 25-OH Vitamin D2 and 25-OH Vitamin D3, but only a total Vitamin D concentration is reported. Please note, the performing location for this test has changed. ??As of 09/03/2011 the Vitamin D Total, 25 Hydroxy assays are being analyzed by the [facility]. ??There is NO CHANGE in units. ??Please contact the chemistry laboratory at [phone] with questions. Blood specimen (specimen) 10/24/2011 11:02 AM EDT 10/24/2011 11:11 AM EDT Narrative Resulting Agency Comment Spec In Lab Ron Burns MD CHEMISTRY ORDERABLES Performing Organization Address [facility] de Phone Number [facility] * PSA SCREEN (10/24/2011 11:02 AM EDT) PSA Screen 1.96 0.00 - 4.00 ng/mL [facility] Blood specimen (specimen) 10/24/2011 11:02 AM EDT 10/24/2011 11:11 AM EDT Narrative Resulting Agency Comment Spec In Lab Ron Burns MD CHEMISTRY ORDERABLES Performing Organization Address [facility] de Phone Number [facility] * HEMOGLOBIN A1C (10/24/2011 11:02 AM EDT) Pathologist [facility] Hemoglobin A1c 5.1 4.3 - 6.1 % [facility] Estimated Average Glucose 100 mg/dL [facility] Comment: eAG equivalents for HbA1c percentages: HbA1c(%) ?eAG(mg/dL) 6.0 ?126 6.5 ?140 7.0 ?154 7.5 ?169 8.0 ?183 8.5 ?197 9.0 ?212 9.5 ?226 10.0 ? 240 Limitations: The eAG calculation has not been validated on women, individuals below 18 years old and above 70 years old, and individuals with hemoglobinopathies. Additional resources are available on the ADA website: ??http://professional.diabetes.org/glucosecalculator.aspx Reference: Pnueet MCADAMS, Abhay J, Ines R, et al. ??Translating the A1C assay into estimated average glucose values. ??Diabetes Care 2008:31(8):3385-7871. Blood specimen (specimen) 10/24/2011 11:02 AM EDT 10/24/2011 11:11 AM EDT Narrative Resulting Agency Comment Spec In Lab Ron Burns MD CHE[facility]STRY ORDERABLES [facility] * CBC (WITH DIFF) (10/24/2011 11:02 AM EDT) White Blood Cell 6.1 4.0 - 10.0 x10(3)/mcL CERNER MILLENNIUM Red Blood Cell 5.12 4.63 - 6.08 x10(6)/mcL [facility]ERN[facility] MILLENNIUM Hemoglobin 15.5 13.7 - 17.5 gm/dL [facility]ERN[facility] MILLENNIUM Hematocrit 44.7 40.0 - 51.0 % CERNER MILLENNIUM Mean Cell Volume 87.3 79.0 - 92.0 fL CERNER MILLENNIUM Mean Cell Hemoglobin 30.3 25.6 - 32.2 pg CERNER MILLENNIUM Mean Cell Hemoglobin Concentration 34.7 32.0 - 36.5 gm/dL CERNER MILLENNIUM Platelet 155 145 - 370 x10(3)/mcL CERNER MILLENNIUM RDW Standard Deviation 43.2 35.0 - 46.0 fL CERNER MILLENNIUM RDW coefficient of variation 13.7 10.9 - 14.4 % CERNER MILLENNIUM Mean Platelet Volume 10.1 9.0 - 12.0 fL [facility]ERN[facility] MILLENNIUM Blood specimen (specimen) 10/24/2011 11:02 AM EDT 10/24/2011 11:11 AM EDT Narrative Resulting Agency Comment Spec In Lab Ron Burns MD HEMATOLOGY ORDERABLE S Performing Organization Address City/State/[facility] Co de Phone Number [facility] documented in this encounter Visit Diagnoses Not on filedocumented in this encounter Care Teams Occupational Health Physician Relationship Specialty Start Date End Date Evon Kamara, NARCOTICS DETECTIVE [facility] [address] [place] [address] PCP - General 01/23/11 11/07/11 documented as of this encounter
--- OUTSIDE RECORDS SUMMARY | 2024-07-09 11:21 | XMS_ITS | Encounter Summary ---
Author Organization [facility] [place] [address] Care Team Providers Care Box Finisher Name Role Phone Ron Burns MD Primary Care Provider [phone] Encounter Details Date Type Department Care Team (Latest Contact Info) Description 11/09/2011 8:44 AM EDT - 11/09/2011 11:59 PM EDT Hospital [place] [address] CLINIC, Ron Stovall MD [address] [place] [address] Discharge Disposition: Home Social History Tobacco Use [...] Notes * Miscellaneous - Provider, Scanning - 11/20/2011 11:18 AM EDT documented in this encounter Plan of Treatment Upcoming Encounters Date Type Department Care Team (Late st Contact Info) Description 12/15/2024 11:30 AM EDT Office [place] [address] Charline Ziegler MD [facility] [place] [address] documented as of this encounter Procedures Procedure Name Priority Date/Time Associated Diagnosis Comments MRI HEAD ANGIOGRAM WO CONTRAST Routine 11/09/2011 9:20 AM EDT documented in this encounter Results * MRI HEAD ANGIOGRAM WO CONTRAST (11/09/2011 9:20 AM EDT) Anatomical Region Laterality Modality Head Magnetic Resonan ce 11/09/2011 9:20 AM EDT Narrative 11/09/2011 2:33 PM EDT MRA OF THE [place] OF [place]: HISTORY: ??Brother with ruptured aneurysm. FINDINGS: ??There are no indications of aneurysm or other vascular pathology. No abnormal narrowings are present. The [place] of Nicole appears to be complete. Patient exhibits an incidental cavum septum pellucidum et vergae, aneurysm, or other obvious vascular pathology. OPINION: No evidence of aneurysm Procedure Note Andre Ulloa MD - 11/09/2011 MRA OF THE [place] OF [place]: HISTORY: Brother with ruptured aneurysm. FINDINGS: There are no indications of aneurysm or other vascularpathology. No abnormal narrowings are present. The [place] of [place] appears to becomplete. Patient exhibits an incidental cavum septum pellucidum et vergae,aneurysm, or other obvious vascular pathology. OPINION: No evidence of aneurysm Ron Burns MD IMG MRI ORDERABLES documented in this encounter Visit Diagnoses Not on filedocumented in this encounter Care Teams Box Finisher Relationship Specialty Start Date End Date Ron Burns MD [address] [facility] [address] [place] [address] PCP - General 11/08/11 02/11/12 documented as of this encounter
--- OUTSIDE RECORDS SUMMARY | 2024-07-09 11:21 | XMS_ITS | Encounter Summary ---
Author Organization [facility] [place] [address] Care Team Providers Care Shirt Operator Name Role Phone Ron Burns MD Primary Care Provider Encounter Details Date Type Department Care Team (Late st Contact Info) Description 07/08/2010 2:15 PM EST - 07/08/2010 4:16 PM EST [place] [phone] Azeem Shepherd MD [facility] [place] [address] Discharge Disposition: Home Social History Tobacco Use [...] EDT Office [place] [address] Charline Ziegler MD [facility] [place] [address] documented as of this encounter Visit Diagnoses Not on filedocumented in this encounter Care Teams Shirt Operator Relationship Specialty Start Date End Date Ron Burns MD [address] [place] [address] PCP - General 06/19/10 01/22/11 documented as of this encounter
--- OUTSIDE RECORDS SUMMARY | 2024-07-09 11:21 | XMS_ITS | Encounter Summary ---
Author Organization [facility] Address [facility] [place] [address] Care Team Providers Care Bilingual Branch Manager Name Role Phone Reji Adams MD Primary Care Provider [phone] Reason for Visit * Reason Comments Varicose Veins Encounter Details Date Type Department Care Team (Late st Contact Info) Description 05/06/2012 2:40 PM EDT Follow-[place] [address] Thien Broussard MD [facility] [place] [address] Varicose veins of legs (Primary Dx) Discharge [...] Reading Time Taken Comments Blood Pressure 110/72 05/06/2012 2:39 PM EDT Pulse 78 05/06/2012 2:39 PM EDT Temperature - - Respiratory Rate - - Oxygen Saturation - - Inhaled Oxygen Concentration - - Weight 96.2 kg (212 lb) 05/06/2012 2:39 PM EDT Height 180.3 cm (5' 11) 05/06/2012 2:39 PM EDT Body Mass Index 29.57 05/06/2012 2:39 PM EDT documented in this encounter Progress Notes * Thien Broussard MD - 05/06/2012 3:05 PM EDT Ken Mckeon is a 66-year-old nondiabetic man seen to re-evaluate bilateral symptomatic varicose veins. He has a long-standing history of varicose veins, and had varicose vein stripping when he wasin high school. He has moderate leg swelling, for many years. He has increasingdiscomfort and itching from his varicose veins, especially when he walks or stands for long periods. He has never smokedbut he does chew some tobacco. I saw him for this in October, and discussed potential surgical treatment because his varicose veins were quite large. He elected to pursue a conservative approach and has been wearing 30-40 mm compression stockings daily since then. Unfortunately he has not noted relief of symptoms, even though he elevates his legs several times during the day. He has had to reduce his walking and is now very frustrated. Both legs seemed equally symptomatic. He has large varicosities of the great saphenous system bilaterally, beginning in the upper thigh and extending well into the calf. In places these are as large as 8 mm diameter. He has some nonpitting edema of both lower legs. 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 On the left he has some deep vein incompetence proximally, but his distal deep veins are competent. On the right his deep veins are largely competent. His varicose veins are sufficiently extensive that they will require more and more involved surgeryif they are not excised and stripped. He is having symptoms and has swelling which should be improved by excising the incompetent superficial veins. He would now like to proceed with bilateral greater saphenous vein stripping and varicose vein excision. Because of the large number of large varicosities this will require approximately 4 hours of surgical time. We will schedule this electively in the near future. This should provide good symptom relief and may reduce his ankle swelling. He has nosignificant medical problems and has had multiple previous anesthetics related to various orthopedic procedures. documented in this encounter Plan of Treatment Upcoming Encounters Date Type Department Care Team (Late st Contact Info) Description 12/15/2024 11:30 AM EDT Office [place] [address] Charline Ziegler MD [facility] [place] [address] documented as of this encounter Visit Diagnoses Diagnosis Varicose veins of legs- Primary Asymptomatic varicose veins documented in this encounter Care Teams Bilingual Branch Manager Relationship Specialty Start Date End Date Reji Adams MD [facility] [place] [address] PCP - General 02/12/12 06/27/15 documented as of this encounter
--- OUTSIDE RECORDS SUMMARY | 2024-07-09 11:21 | XMS_ITS | Encounter Summary ---
Author Organization [facility] Address [facility] [place] [address] Care Team Providers Care Retail Warehouse Associate Name Role Phone Ron Burns MD Primary Care Provider Encounter Details Date Type Department Care Team (Late st Contact Info) Description 07/16/2010 9:50 AM EST Office Visit [facility] [place] [address] Social History Tobacco Use Types Packs/Day Years [...] 11:30 AM EDT Office [place] [address] Charline Ziegler MD [facility] [place] [address] documented as of this encounter Visit Diagnoses Not on filedocumented in this encounter Care Teams Retail Warehouse Associate Relationship Specialty Start Date End Date Ron Burns MD [address] [facility] [address] [place] [address] PCP - General 06/19/10 01/22/11 documented as of this encounter
--- OUTSIDE RECORDS SUMMARY | 2024-07-09 11:21 | XMS_ITS | Encounter Summary ---
Author Organization [facility] [place] [address] Care Team Providers Care Spa Consultant Name Role Phone Evon Kamara APRN Primary Care Provider Encounter Details Date Type Department Care Team (Late st Contact Info) Description 01/23/2011 Orders Only Internal Medicine at [address] [address] Evon Kamara APRN [facility] GENERAL INTERNAL [place] [address] Social History Tobacco Use Types Packs/Day Years [...] 11:30 AM EDT Office [place] [address] Charline Ziegler MD [facility] [place] [address] documented as of this encounter Visit Diagnoses Not on filedocumented in this encounter Care Teams Spa Consultant Relationship Specialty Start Date End Date Evon Kamara, BIODIESEL PRODUCT MANAGER [facility] GENER[place] [address] PCP - General 01/23/11 11/07/11 documented as of this encounter
--- OUTSIDE RECORDS SUMMARY | 2024-07-09 11:21 | XMS_ITS | Encounter Summary ---
Author Organization [facility] [place] [address] Care Team Providers Care Adjunct Lecturer Name Role Phone Reji Adams MD Primary Care Provider [phone] Reason for Visit * Reason Onset Date Comments Labs Only 05/12/2012 Encounter Details Date Type Department Care Team (Late st Contact Info) Description 05/12/2012 Telephone Internal Medicine at [address] [address] Reji Adams MD [facility] GENER[place] [address] Labs Only Social History Tobacco Use Types [...] * Telephone Encounter - Loulou Rivas - 05/12/2012 11:14 AM EDT I HAVE CALLED PT TO LET HIM KNOW HE CAN HAVE THIS DRAWN AT [facility]. THANKS * Telephone Encounter - Reji Adams MD - 05/12/2012 10:46 AM EDT Immune test ordered. He can have it drawn at [facility] * Telephone Encounter - EvelynLoulou - 05/12/2012 10:12 AM EDT PT CALLED HERE YESTERDAY AND SPOKE WITH A NURSE REGARDING A TEST TO SEE IF HE HAS HAD THE CHICKEN POX OR WOULD BE IMMUNE. HE DOESN'T REMEMBER GETTING THEM AND HE STATES THERE IS NO ONE TO ASK. CAN THIS TEST BE DONE AND IF SO I CAN CALL HIM AND LET HIM KNOW HE WOULD LIKE TO BE TESTED. THANKS documented in this encounter Plan of Treatment Upcoming Encounters Date Type Department Care Team (Late st Contact Info) Description 12/15/2024 11:30 AM EDT Office [place] [address] Charline Ziegler MD [facility] [place] [address] documented as of this encounter Results * Varicella zoster Antibody, IgG (05/14/2012 11:28 AM EDT) Varicella Zoster Antibody IgG Positive [facility] Blood specimen (specimen) 05/14/2012 11:28 AM EDT 05/14/2012 2:18 PM EDT Narrative Resulting Agency Comment Spec In Lab Reji Adams MD [facility]MMUNOLOGY ORDERABLE S [facility] documented in this encounter Visit Diagnoses Diagnosis Immune to varicella Other specified conditions influencing health status documented in this encounter Care Teams Adjunct Lecturer Relationship Specialty Start Date End Date Reji Adams MD [facility] GENERAL [place] [address] PCP - General 02/12/12 06/27/15 documented as of this encounter
--- OUTSIDE RECORDS SUMMARY | 2024-07-09 11:21 | XMS_ITS | Encounter Summary ---
Author Organization [facility] [place] [address] Care Team Providers Care Environmental Health And Safety Manager Name Role Phone Evon Kamara APRN Primary Care Provider Encounter Details Date Type Department Care Team (Late st Contact Info) Description 05/10/2011 11:00 AM EDT Office Visit Internal Medicine at [address] [address] Evon Kamara APRN [facility] MED[facility], [place] [id number] Back pain (Primary Dx) Discharge Disposition: Home Social [...] as of this encounter Progress Notes * Evon Kamara APRN - 05/10/2011 12:56 PM EDT Subjective: Patient ID: Ken Mckeon is a 65 y.o. male. HPI Here for routine visit- seen last January and mentioned a sensation of not being able to take a deep breath. No sob just sensation of an inability to get full inspiration. Now, reports that this sensation has never fully resolved and yesterday it was associated w/pain between his shoulder blades. The pain was achy/burning 7. He sat in the [facility] parking lot yesterday trying to decide if he should get evaluated. The pain comes and goes and can last all day or 4-5 hours. He only uses prn asa w/no real change. He tried going to the chiropractor and felt the pain was better after but at return visit found it really unchanged. It never wakes him from sleep. No association w/meals, no URI sx. No allergy sx. He has felt fatigued through the Summer, no upper body weakness, numbness/tingling. 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 Both the achy pain and sensation of air hunger can occur w/just rest or w/activities. Does not occur w/climbing stairs. Yesterday the achy pain came on just prior to going to work. He tried stretching his upper body/arms w/a bunge cord and this did nothing to the pain. Review of Systems No night sweats, +intentional wt loss. + yawning w/sensation of air hunger. His hobby is archery and he does this year round, no increased pain w/this activity. Never smoked. + exposure to chemical/solvents at work. Objective: Physical Exam Nad, pleasant Hand held PF- 560, 600, 610 RA sat 96% Heent: neg No RD, Chest: cta a/p Cv: s1s2 reg no mrg UE: FROM, 11/29 no triggering of pain bilat shoulder- no pain, Spine- no tenderness Assessment and Plan: Upper back pain: we did get a CXR @ [facility] during the Summer and it was reported as normal. I don't see the scanned copy in the record. The pt has already called [facility] and asked for a copy to be sent. The etiology is unclear- ddx MS pain given his long hx of archery, RAD , anxiety. 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 Follow for the CXR report. Consider repeat CXR and then PFTs. Then, plain films of T-spine. documented in this encounter Plan of Treatment Upcoming Encounters Date Type Department Care Team (Late st Contact Info) Description 12/15/2024 11:30 AM EDT Office [place] [address] Charline Ziegler MD [facility] [place] [address] documented as of this encounter Visit Diagnoses Diagnosis Back pain- Primary Backache, unspecified documented in this encounter Care Teams Environmental Health And Safety Manager Relationship Specialty Start Date End Date Evon Kamara APRN [facility] [address] [place] [place] [address] PCP - General 01/23/11 11/07/11 documented as of this encounter
--- OUTSIDE RECORDS SUMMARY | 2024-07-09 11:21 | XMS_ITS | Encounter Summary ---
Author Organization [facility] Address [facility] [place] [address] Care Team Providers Care Screw Machine Tool Setter Name Role Phone Ron Burns MD Primary Care Provider Encounter Details Date Type Department Care Team (Late st Contact Info) Description 07/16/2010 10:20 AM EST Office [place] [phone] Alexey Alex Jr., MD [facility] [place] [address] Discharge Disposition: Home Social History Tobacco Use [...] EDT Office [place] [phone] Charline Ziegler MD [facility] [place] [address] documented as of this encounter Visit Diagnoses Not on filedocumented in this encounter Care Teams Screw Machine Tool Setter Relationship Specialty Start Date End Date Ron Burns MD [address] [facility] [address] [place] [address] PCP - General 06/19/10 01/22/11 documented as of this encounter
--- OUTSIDE RECORDS SUMMARY | 2024-07-09 11:21 | XMS_ITS | Encounter Summary ---
Author Organization [facility] Address [facility] [place] [address] Care Team Providers Care Applications Development Consultant Name Role Phone Reji Adams MD Primary Care Provider [phone] Encounter Details Date Type Department Care Team (Latest Contact Info) Description 08/13/2012 10:48 AM EST - 08/13/2012 11:59 PM [facility] Hospital Encounter XRay at [address] [place] [address] CLIN[address], DR DELISA Kowalski, Yony Iyer, [place] [address] [place] [address] Discharge Disposition: Home Social History Tobacco Use [...] 1 capsule by mouth daily. 11/16/2012 Saw Hackberry 500 mg capsule Take 500 mg by [...] 11:30 AM EDT Office [place] [address] Charline Ziegler MD [facility] [place] [address] documented as of this encounter Procedures Procedure Name Priority Date/Time Associated Diagnosis Comments XR CERVICAL SPINE 2 OR 3 VIEWS Routine 08/13/2012 11:09 AM EST documented in this encounter Results * XR Cervical Spine 3 views or Less (08/13/2012 11:09 AM EST) Anatomical Region Laterality Modality C-spine N/A Radiographic [place] ging 08/13/2012 11:0 9 AM EST Narrative 08/13/2012 2:51 PM EST Examination Cervical Spine 3 views or Less Clinical History ACUTE CHRONIC - NECK PAIN Comparison None. Technique AP lateral and bilateral obliques-. Findings There is diffuse cervical spondylosis involving the cervical spine with disc space narrowing and large marginal osteophytes particularly involving C5-C6 and C6-C7. . Degenerative changes involving the posterior facet joints the producing large osteophytes particularly in the mid cervical spine. ??There is a ?? minimal anterior spondylolisthesis of C5 on C6. ??The oblique views show severe stenosis of the bilateral C3-C4 and C4-C5 foramina with mild stenosis of the bilateral C5-C6 foramina. Foramina views are limited by patient positioning. ?? No acute injury is seen. There is a 23 mm densely calcified mass in the left retromandibular region within the soft tissues. Impression Moderate to severe cervical spondylosis. ??Multilevel bilateral foraminal narrowing. 23 mm calculus, likely a densely calcified lymph node. Procedure Note Karin Muñoz MD - 08/13/2012 Examination Cervical Spine 3 views or Less Clinical History ACUTE CHRONIC - NECK PAIN Comparison None. Technique AP lateral and bilateral obliques-. Findings There is diffuse cervical spondylosis involving the cervical spine withdisc space narrowing and large marginal osteophytes particularly involvingC5-C6 and C6-C7. . Degenerative changes involving the posterior facet joints the producing large osteophytes particularly in the mid cervical spine. Thereis a minimal anterior spondylolisthesis of C5 on C6. The oblique views showsevere stenosis of the bilateral C3-C4 and C4-C5 foramina with mild stenosis ofthe bilateral C5-C6 foramina. Foramina views are limited by patientpositioning. No acute injury is seen. There is a 23 mm densely calcified mass in the left retromandibular region within the soft tissues. Impression Moderate to severe cervical spondylosis. Multilevel bilateral foraminal narrowing. 23 mm calculus, likely a densely calcified lymph node. Yony Kowalski [place] IMG DX ORDERABLES documented in this encounter Visit Diagnoses Not on filedocumented in this encounter Care Teams Applications Development Consultant Relationship Specialty Start Date End Date Reji Adams MD [facility] [place] [address] PCP - General 02/12/12 06/27/15 documented as of this encounter
--- OUTSIDE RECORDS SUMMARY | 2024-07-09 11:21 | XMS_ITS | Encounter Summary ---
Author Organization [facility] Address [facility] [place] [address] Care Team Providers Care Wing Coverer Name Role Phone Reji Adams MD Primary Care Provider [phone] Encounter Details Date Type Department Care Team (Late st Contact Info) Description 06/02/2012 7:23 AM EST Anesthesia Event [place] [phone] Alexey Robledo MD [facility] [place] [address] Devang Martínez MD [facility] [place] [address] Anesthesia Record Procedure Summary Procedure Name Responsible Anesthesiologist Anesthesia Start Time Anesthesia Stop Time LIGATION\DIV\STRIP GREATER SAPHENOUS VEIN (WRVU 8.16) (Bilateral: Leg) Alexey Robledo MD 06/02/12 0723 06/02/12 1216 Events Date Time Event Comment 06/02/2012 0723 Start 0728 1216 Stop Meds * Agents No agents on file. * Blood No blood administrations on file. Lines, Drains, and Airways Type Details Placement Removal (RETIRED) Peripheral IV Line - Single Lumen 11/11/11; 0045; 06/18/17 11/11/11 0045 by Brennon Dacosta RN 06/18/17 0000 by Say Ratliff RN Urethral Catheter 06/02/12; indwelling double lumen catheter; latex; 16; inserted; drainage bag to dependent drainage; 06/02/12; 1203 (by Mansoor De Santiago RN with 200 ml clear yellow returns) 06/02/12 0000 by Seth Laws, AGNIESZKA 06/02/12 1203 by Pia De Santiago RN Incision 06/02/12; groin; 03/25/22 (LDA cleanup utility RA#[id number]); 1715 (LDA cleanup utility RA#[id number]) 06/02/12 0000 by Seth Laws, AGNIESZKA 03/25/22 1715 by Shukri Blanca Incision 06/02/12; leg; 03/25/22 (LDA cleanup utility RA#[id number]); 1715 (LDA cleanup utility RA#[id number]) 06/02/12 0000 by Seth Laws RN 03/25/22 1715 by Shukri Blanca Incision 06/02/12; leg (multiple incisions); 09/07/13; 1613 06/02/12 0000 by Seth Laws RN 09/07/13 1613 by Myra Macdonald RN (RETIRED) Peripheral IV Line - Single Lumen 06/02/12; 0628; 06/02/12; 1452 06/02/12 0628 by Rose Leon RN 06/02/12 1452 by Beckie Hernandez RN documented in this encounter Social History [...] OR Notes * Anesthesia Postprocedure Evaluation - Devang Martínez - 06/02/2012 12:22 PM EST Patient: Ken Mckeon Procedure(s) Performed: Procedure(s): LIGATION\DIV\STRIP GREATER SAPHENOUS VEIN STAB PHLEBECTOMY KARLI VEINS, EXTREMITY 10-20 INCISIONS-SANTI Patient location: PACU Post-op pain: Adequate analgesia Post-op nausea: no nausea or vomiting Last Vitals: Filed Vitals: 06/02/12 0601 BP: 112/66 Pulse: 62 Temp: 36.4 ??C (97.5 ??F) Resp: 17 Post-op cardiovascular and respiratory status: is stable Level of consciousness: awake, alert and oriented Complications: no apparent complications, tolerated the procedure well and no evidence of recall Fluid Status: normal * Anesthesia Preprocedure Evaluation - Devang Martínez - 06/01/2012 2:01 PM EST Today I evaluated Ken Mckeon a 66 y.o. male. Procedure(s): LIGATION\DIV\STRIP GREATER SAPHENOUS VEIN STAB PHLEBECTOMY KARLI VEINS, EXTREMITY 10-20 INCISIONS-SANTI Patient Active Problem List Diagnoses ??? Anxiety ??? Lightheadedness ??? Varicose veins of legs ??? OA (osteoarthritis) of knee right ??? Cataract extraction status of left eye ??? Status post total knee replacement TKR Right knee in 2007 Past Medical History Diagnosis Date ??? BPH (benign prostatic hyperplasia) ??? OA (osteoarthritis) of knee right Past Surgical History Procedure Date ??? Created by interface Past surg hx. Procedure Date: 09/19/2010 History Substance Use Topics ??? Smoking status: Never Smoker ??? Smokeless tobacco: Current User Types: Chew Comment: daily ??? Alcohol Use: Not on file Allergies Allergen Reactions ??? Penicillins Medications: MAR and/or home medications have been reviewed. Physical Exam: There were no vitals filed for this visit. There is no height or weight on file to calculate BMI. Airway Assessment: Mallampati: III TM distance: >3 FB Neck ROM: full Cardiovascular Assessment: Pulmonary Assessment: Dental Assessment: - normal exam Misc Assessment: IV access: Peripheral line Anesthesia Plan: ASA 2 General with intravenous induction Plan GETA. Informed Consent: Anesthetic plan and risks discussed with patient. Plan discussed with attending. Misc. Assessment: documented in this encounter Miscellaneous Notes * Addendum Note - Aimee Phillips - 06/03/2012 11:28 AM EST Addendum created 06/03/12 1128 by Aimee Phillips Modules edited:Anesthesia Events, Anesthesia Responsible Staff documented in this encounter Plan of Treatment Upcoming Encounters Date Type Department Care Team (Late st Contact Info) Description 12/15/2024 11:30 AM EDT Office Visit [place] [address] Charline Ziegler MD [facility] [place] [address] documented as of this encounter Visit Diagnoses Not on filedocumented in this encounter Care Teams Wing Coverer Relationship Specialty Start Date End Date Reji Adams MD [facility] [place] [address] PCP - General 02/12/12 06/27/15 documented as of this encounter
--- OUTSIDE RECORDS SUMMARY | 2024-07-09 11:21 | XMS_ITS | Encounter Summary ---
Author Organization [facility] [place] [address] Care Team Providers Care Granite Installer Name Role Phone Reji Adams MD Primary Care Provider [phone] Reason for Visit * Reason Comments Fatigue Dizziness Encounter Details Date Type Department Care Team (Late st Contact Info) Description 02/25/2012 2:40 PM EDT Follow-Up Internal Medicine at [address] [address] Reji Adams MD [facility] [place] [address] Dizziness (Primary Dx) Discharge Disposition: Home Social History [...] Sign Reading Time Taken Comments Blood Pressure 105/67 02/25/2012 2:56 PM EDT Pulse 78 02/25/2012 2:56 PM EDT Temperature - - Respiratory Rate - - Oxygen Saturation - - Inhaled Oxygen Concentration - - Weight 98.9 kg (218 lb) 02/25/2012 2:56 PM EDT Height - - Body Mass Index 30.4 11/20/2011 1:53 PM EDT documented in this encounter Progress Notes * Reji Adams MD - 02/25/2012 2:58 PM EDT ESTABLISHED PATIENT VISIT I. HISTORY a. Reason(s) for Visit: Ken Mckeon 66 y.o. male who presents today due to complaint(s) of: Chief Complaint Patient presents with ??? Fatigue ??? Dizziness b. History of Present Illness:[] Pt with a long hx of lightheadedness and fatigue seen on 02/12 for same. At that point was improvingsome with pushing fluids but returns today with continued sxs. Pt has normal cortisol and BMP on 02/12. Recommended continue to push fluids and wear compression stockings as significant venous insufficiency could be playing a role. TSH previously normal. States is getting some dizziness with significant exercise. Was walking up hills this weekend and got some sob with dizziness. Also does note that veins seem to be getting worse. c. Review of Systems: Constitutional - no fevers, chills, weight loss or gain, +fatigue Cardiovascular - No CP, palpitations, angina, MARTIN, [...] Not on file II. PHYSICAL EXAM: BP 105/67 Pulse 78 Wt 98.884 kg (218 lb) General - No acute distress, conversing without difficulty. ENT - oropharynx without lesions. Eyes - EOMI. No scleral icterus Neck - No lymphadenopathy, supple, no masses Lungs - Clear to auscultation Heart - RRR, S1,S2, no murmur, gallop or rub. Extremities - No clubbing, cyanosis or edema. III. ASSESSMENT/PLAN:Ken Mckeon 66 y.o. male presenting with ongoing dizziness despite extensive workup in the past. No orthostatis today but also was not having sxs. ? If having some pooling from extensive varcosities and that is playing a role when slightly dehydrated. However, sxs had this weekend associated with exercise is more concerning and feel should rule out ischemia. Also pt has significant untreated anxiety/panic and may also be worsening sxs -stress echo -f/u 2 weeks. If echo negative will discuss treating anxiety with SSRI Meds reconciled documented in this encounter Plan of Treatment Upcoming Encounters Date Type Department Care Team (Late st Contact Info) Description 12/15/2024 11:30 AM EDT Office [place] [address] Charline Ziegler MD [facility] [place] [address] documented as of this encounter Results * Echocardiogram Stress (Treadmill) (03/09/2012 11:38 AM EDT) EF 65 HEARTLAB SYSTEM Anatomical Region Laterality Modality Other 03/09/2012 Narrative 03/09/2012 3:34 PM EDT Procedure: ? Stress Echocardiogram Patient: ? KELSEY Quiñonez ? (Age): 1945(66) Med Rec#: ?[id number] ? Sex: ?M ? Site Loc: ?[facility] ? Ht / Wt: ??180(cm)/95(kg) Pt. Loc: ? Echo Lab ? BSA: ?2.18 Study Date: ?03/09/2012 ? Pt. Type: Outpatient Tape: ?GE3 ? Referring: Reji Adams Instruction Dean: Frantz Cruz Supply Chain Engineer: Ely Soto Diagnosis: ??Syncope (780.2) CPT Code(s): ??Doppler LTD (70577), ??ECG Interpretation (41398), ??Stress Echo (77766), ??Color Doppler (42742), Indication(s): ??Syncope Medication(s): ?? Rhythm: Bundle Branch [...] short 4 beat PAT in recovery. ??All lucio increased in thickening with no segmental [...] ?Normal ?Normal ? Mid-Inferoseptal ?Normal ?Normal ? [place]-Septal ? Normal ?Normal ? [place]-Anterior ? Normal ?Normal ? [place]-Lateral ?Normal ?Normal ? [place]-Inferior ? Normal ?Normal ? [place]-Tip ?Normal ?Normal ? Chambers ?Value ?Units (Range) [...] 03/09/2012 15:33:56 Images reviewed and interpretation verified [facility] Cardiac Ultrasound Laboratory Procedure Note Rayo Melgar MD - 03/09/2012 Procedure: Stress Echocardiogram Patient: KELSEY Quiñonez (Age): 1945(66) Med Rec#: [id number] Sex: M Site Loc: [facility] Ht / Wt: 180(cm)/95(kg) Pt. Loc: Echo Lab BSA: 2.18 Study Date: 03/09/2012 Pt. Type: Outpatient Tape: GE3 Referring: Reji Adams Instruction Dean: Frantz Cruz Supply Chain Engineer: Ely Soto Diagnosis: Syncope (780.2) CPT Code(s): Doppler LTD (78096), ECG Interpretation (24560), Stress Echo (18239), Color Doppler (27042), Indication(s): Syncope Medication(s): Rhythm: Bundle Branch Block [...] on no cardiac or blood pressure medications. [facility] Other echo and stress findings as noted [...] Normal Mid-Inferior Normal Normal Mid-Inferoseptal Normal Normal [place]-Septal Normal Normal [place]-Anterior Normal Normal [place]-Lateral Normal Normal [place]-Inferior Normal Normal [place]-Tip Normal Normal Chambers Value Units (Range) LV EF Est 65 % (55 to 80) Mitral Valve Value Units (Range) E peak 0.46 m/sec E1 0.07 m/sec E/E1 6.6 ratio Tricuspid/Pulmonic Valves Value Units (Range) TR peak brooklynn 2.1 m/sec RAP 3 mmHg RVSP/PASP 20 mmHg This report has been electronically signed by: Rayo Melgar MD 03/09/2012 15:33:56 Images reviewed and interpretation verified [facility] Cardiac Ultrasound Laboratory Reji Adams MD ECHO ORDERABLES documented in this encounter Visit Diagnoses Diagnosis Dizziness- Primary Dizziness and giddiness Dizziness Dizziness and giddiness documented in this encounter Care Teams Granite Installer Relationship Specialty Start Date End Date Reji Adams MD [facility] [place] [address] PCP - General 02/12/12 06/27/15 documented as of this encounter
--- OUTSIDE RECORDS SUMMARY | 2024-07-09 11:21 | XMS_ITS | Encounter Summary ---
Author Organization [facility] Address [facility] [place] [address] Care Team Providers Care Cutter Operator Asbestos Shingle Name Role Phone Ron Burns MD Primary Care Provider Reason for Visit * Reason Comments Skin Lesion Encounter Details Date Type Department Care Team (Late st Contact Info) Description 01/07/2011 1:30 PM EDT [place] [address] Myra Siddiqi MD [facility] [address] MADINA [place] [address] Wart (Primary Dx) Discharge Disposition: Home Social History Tobacco Use Types Packs/Day Years Used Date Smoking Tobacco: Never Assessed Sex and Gender Information Value Date Recorded Sex Assigned at Choose not to disclose 02/2023 8:26 AM EDT Gender Identity Not on file Sexual Orientation Choose not to disclose 2022 8:26 AM EDT documented as of this encounter Progress Notes * Myra Siddiqi MD - 01/07/2011 1:34 PM EDT DERMATOLOGY SPOT-CHECK Date of service: 01/07/2011 Sandy Cole : 1945 Provider: Myra Siddiqi MD PROBLEM: Spot to check Chief Complaint Patient presents with ??? Skin Lesion SKIN HX:Negative HPI Sandy Cole is a 65 y.o. year old male here with a growing rough,warty spot on the bridge of hisnose for the past year. New pt, self-referred Seen for one spot-check at this apointment. Knows this is a one-spot check clinic only. Knows will need to make appointment for full skin check if desired or to have other areas checked. ADR: Allergies Allergen Reactions ??? Penicillins MEDS: Current outpatient prescriptions ordered prior to encounter Medication Sig Dispense Refill ??? aspirin 500 mg EC tablet Take 500 mg by mouth. Every 4-6 hours prn ??? ibuprofen (ADVIL;MOTRIN) 200 mg tablet Take 200 mg by mouth. Every 4-6 hour ??? naproxen sodium (ALEVE) 220 mg tablet Take 220 mg by mouth every 8 hours as needed. ROS General: feeling well EXAM A focused skin exam of the concerning spot was performed. General: NAD, pleasant, cooperative male. Focused exam of skin:nose Skin findings: A.0.5cm verrucous pink papule bridge of nose ASSESSMENT/PLAN: Eliseo Caldwell r/o SCC-Procedure: Skin biopsy. Location: nasal bridge Discussed indications for procedure and expectations including risks and benefits. Verbal consent obtained. Skin prep with alcohol. Local anesthesia with 1% xylocaine, 1/100,000 epinephrine, 0.1 mEq/mL bicarbonate. A sample of the lesion was removed by shave technique to the level of the dermis andsubmitted to Pathology. Hemostasis obtained (AlCl and/or electrocautery). There were no complications; the pt. tolerated the procedure well. The wound was dressed. Post-procedure expectations, wound care and activity restrictions were reviewed. Follow-up based on pathology results. B.RTC PRN Note initiated by: SAVANNA Siddiqi M.D. Section of Dermatology [facility] documented in this encounter Plan of Treatment Upcoming Encounters Date Type Department Care Team (Late st Contact Info) Description 12/15/2024 11:30 AM EDT Office [place] [address] Charline Ziegler MD [facility] [place] [address] Scheduled Orders Name Type Priority Associated Diagnoses Orde r Schedule Specimen to Pathology (surgical or derm) Lab Routine Wart Ordered: 01/07/2011 documented as of this encounter Procedures Procedure Name Priority Date/Time Associated Diagnosis Comments SURGICAL PATHOLOGY REPORT Routine 01/07/2011 3:42 PM EDT SURGICAL PATHOLOGY REPORT Routine 01/07/2011 3:42 PM EDT documented in this encounter Results * Surgical Pathology Report (01/07/2011 3:42 PM EDT) Surgical Pathology Report [id number] ? Location: 4M The signing pathologist has (i) examined the relevant preparation(s) for the specimen(s) and (ii) rendered or confirmed the diagnosis(es). . ?Pathology Surgical Pathology Final Report Clinical Information Specimen Submitted: A - Skin, nasal bridge, shave (1) Clinical History/Diagnosis: 0.5-cm, verrucous papule. ??Wart vs other Gross Description Labeled/Fixative: ? Nasal bridge, formalin. Qty/Size/Weight: ?Single shave, 0.6 cm, white. Sections/Processing : ??Bisected. ??(T1) aje/SNS Microscopic Description Slides reviewed, microscopic description not recorded. Diagnosis Skin of nasal bridge, shave biopsy: ??Digitated and endophytic keratinocytic proliferation. See comment. CR-0 Dictated by: ? Rubén Clayton MD ? Dermatopathology Fellow As the attending physician, I attest that I examined the histologic slides, and confirm Dr. Rubén Clayton's diagnosis. 01/08/11 [facility] 01/09/11 Verified by: ? Oriana CHAVEZ, Amador Bueno ?Dermatopathologis t ?(Electronic Signature) The attending pathologist whose signature appears on this report has reviewed all diagnostic slides and has edited the gross and/or microscopic portion of the report in rendering the final pathologic diagnosis. Comment Although the majority of the specimen has features of an endophytic verruca, there is an irregular proliferation of enlarged keratinocytes apparently undermining the main portion of the lesion and extending to the base of the biopsy. ??Although this could represent a tangential sections of an endophytic portion of a verruca with cytologic atypia, the possibility that this represents an atypical keratinocytic neoplasm, such as a s ??quamous cell carcinoma ??cannot be entirely excluded. Multiple deeper levels have been examined. [facility] 01/07/2011 3:42 PM EDT Myra Siddiqi MD [facility] * SURGICAL PATHOLOGY REPORT (01/07/2011 3:42 PM EDT) Surgical Pathology Report ? [facility] ? Provider: ?? MYRA SIDDIQI ? Pt. Name: ?? SANDY COLE ? Acc #: ?[id number] ? Pt. ? Col Date: ?? 01/07/2011 ? /Sex: ?1945,(65 years),Male ? Rec Date: ?? 01/07/2011 ? LOC: ?4M ? SURGICAL PATHOLOGY ? ---Pathologic Diagnosis--- ? Skin of nasal bridge, shave biopsy: ? Digitated and endophytic keratinocytic proliferation. See comment. ? CR-0 ? Dictated by: ? Rubén Clayton MD ?Dermatopathology Fellow ? As the attending physician, I attest that I examined the histologic slides, ? and confirm Dr. Rubén Clayton's diagnosis. ? 01/08/11 ? [facility] ? 01/09/11 Verified by: ? Oriana CHAVEZ, Amador Bueno ? Dermatopathologist ? (Electronic Signature) ? The attending pathologist whose signature appears on this report has ? reviewed all diagnostic slides and has edited the gross and/or ? microscopic portion of the report in rendering the final pathologic ? diagnosis. ? ---Comment--- ? Although the majority of the specimen has features of an endophytic ? verruca, there is an irregular proliferation of enlarged keratinocytes ? apparently undermining the main portion of the lesion and extending to the ? base of the biopsy. ??Although this could represent a tangential sections of ? an endophytic portion of a verruca with cytologic atypia, the possibility ? that this represents an atypical keratinocytic neoplasm, such as a squamous ? cell carcinoma cannot be entirely excluded. Multiple deeper levels have ? been examined. ? ---Microscopic Description--- ? Slides reviewed, microscopic description not recorded. ? ---Gross Description--- ? Labeled/Fixative: ? Nasal bridge, formalin. ? Qty/Size/Weight: ?Single shave, 0.6 cm, white. ? Sections/Processing: ??Bisected. ??(T1) aje/SNS ? ---Clinical Information--- ? Specimen Submitted: ? [facility] ? Provider: ?? MYRA SIDDIQI ? Pt. Name: ?? SANDY COLE ? Acc #: ?[id number] ? Pt. ? Col Date: ?? 01/07/2011 ? /Sex: ?1945,(65 years),Male ? Rec Date: ?? 01/07/2011 ? LOC: ?4M ? SURGICAL PATHOLOGY ? A - Skin, nasal bridge, shave (1) ? Clinical History/Diagnosis: ? 0.5-cm, verrucous papule. ??Wart vs other [facility] 01/07/2011 3:42 PM EDT Myra Siddiqi MD PATHOLOGY/CYTOLOGY O [facility] Performing Organization Address City/State/[facility] Co de Phone Number [facility] documented in this encounter Visit Diagnoses Diagnosis Wart- Primary Viral warts, unspecified documented in this encounter Care Teams Cutter Operator Asbestos Shingle Relationship Specialty Start Date End Date Ron Burns MD [address] [facility] [address] [place] [address] PCP - General 06/19/10 01/22/11 documented as of this encounter
--- OUTSIDE RECORDS SUMMARY | 2024-07-09 11:21 | XMS_ITS | Encounter Summary ---
[place] [address] Care Team Providers Care Security Software Engineer Name Role Phone Reji Adams MD Primary Care Provider [phone] Reason for Visit * Reason Comments Other Encounter Details Date Type Department Care Team (Late st Contact Info) Description 07/24/2012 Telephone Internal Medicine at [address] [address] Cammie Lebron, RN Social History Tobacco Use Types Packs/Day [...] encounter Miscellaneous Notes * Telephone Encounter - Cammie Lebron - 07/24/2012 1:14 PM EST Talked with patient re: below message, has not started the Clonazepam yet, but will soon he thinks.He would like a copy of the Fodmap diet, so I will send this out to him. * Telephone Encounter - Cammie Lebron - 07/24/2012 1:13 PM EST Message copied by CAMMIE LEBRON on FriJul 24, 2012 1:13 PM ------ Message from: CHRISTI PANDEY Created: [...] 11:30 AM EDT Office [place] [address] Charline Ziegler MD [facility] [place] [address] documented as of this encounter Visit Diagnoses Not on filedocumented in this encounter Care Teams Security Software Engineer Relationship Specialty Start Date End Date Reji Adams MD [facility] GENERAL INTERNAL [place] [address] PCP - General 02/12/12 06/27/15 documented as of this encounter
--- OUTSIDE RECORDS SUMMARY | 2024-07-09 11:21 | XMS_ITS | Encounter Summary ---
Author Organization [facility] [place] [address] Care Team Providers Care Planer Feeder Name Role Phone Evon Kamara APRN Primary Care Provider Reason for Visit * Reason Onset Date Comments Other 04/25/2011 Encounter Details Date Type Department Care Team (Late st Contact Info) Description 04/25/2011 Telephone Internal Medicine at [address] [address] Evon Kamara APRN [facility] GENERAL [place] [address] Other Social History Tobacco Use Types Packs/Day [...] encounter Miscellaneous Notes * Telephone Encounter - Evon Kamara APRN - 04/25/2011 3:32 PM EDT My last note was that he HAD a cxr done @ [facility] in October 2010. He was going to have that result sent to us. I did not want to order another x-ray. documented in this encounter Plan of Treatment Upcoming Encounters Date Type Department Care Team (Late st Contact Info) Description 12/15/2024 11:30 AM EDT Office [place] [address] Charline Ziegler MD [facility] [place] [address] documented as of this encounter Visit Diagnoses Not on filedocumented in this encounter Care Teams Planer Feeder Relationship Specialty Start Date End Date Evon Kamara APRN [facility] [address] [place] [address] PCP - General 01/23/11 11/07/11 documented as of this encounter
--- OUTSIDE RECORDS SUMMARY | 2024-07-09 11:21 | XMS_ITS | Encounter Summary ---
Author Organization [facility] Address [facility] [place] [address] Care Team Providers Care Chainstitch Tunnel Elastic Operator Name Role Phone Evon Kamara APRN Primary Care Provider [phone] Reason for Visit * Reason Comments Cough Encounter Details Date Type Department Care Team (Late st Contact Info) Description 09/22/2011 12:54 PM EST - 09/22/2011 1:31 PM EST Emergency [place] [address] Alexey Naqvi PA [facility] [place] [address] Thad Lopez MD [facility] [place] [address] Bronchitis, not specified as acute or chronic Discharge Disposition: Home Social History Tobacco Use [...] Reading Time Taken Comments Blood Pressure 112/74 09/22/2011 1:05 PM EST Pulse 96 09/22/2011 1:05 PM EST Temperature 38.1 ??C (100.6 ??F) 09/22/2011 1:[address] Respiratory Rate 16 09/22/2011 1:05 PM EST Oxygen Saturation 96% 09/22/2011 1:05 PM EST Inhaled Oxygen Concentration - - Weight - - Height - - Body Mass Index - - documented in this encounter Discharge Instructions * Attachments The following attachments cannot be sent through Care Everywhere. * BRONCHITIS IN ADULTS: AFTER YOUR VISIT (BELARUSIAN) documented in this encounter Medications at Time [...] as of this encounter ED Notes * Alexey Naqvi PA - 09/22/2011 1:26 PM EST Chief Complaint Patient presents with ??? Cough The history is provided by the patient. This is a 5-year-old male presents himself to emergency room for a 5 day history of congestion, cough, fever and chills. The patient states he started out with a sore throat which progressed to congestion and recently the cough, which has been productive, fever chills and malaise. He has had no significant shortness of breath. He is not a smoker. He did have one history of pneumonia in the past but has had the Pneumovax. Past medical history: Otherwise noncontributory Allergies Allergen Reactions ??? Penicillins Review of Systems Constitutional: Positive for fever, chills and fatigue. HENT: Positive for congestion, rhinorrhea and sneezing. Eyes: Negative. Respiratory: Positive for cough. Cardiovascular: Negative. Gastrointestinal: Negative. Physical Exam Well-developed white male. Vital signs blood pressure is 112/74, pulse 96, respirations 16, temperature 38.1, oxygen saturation rate is 96% on room air. HEENT: Tympanic membranes are clear, pharynx is benign. Neck is supple without lymphadenopathy. LUNGS: Scattered rhonchi in all lobes, few small rales in left lower lobe. Breath sounds equal. CV: Regular rate and rhythm. Procedures MDM ED Course: Assessment: Bronchitis. Plan discussed diagnosis and treatment with the patient. He was started on a Z-Panchito and some guaifenesin with codeine. Risks and benefits were reviewed. Bronchitis instruction sheet given. Followup with PCP as needed. MATT Parisi 09/22/11 1330 documented in this encounter Miscellaneous Notes * Discharge Summary - Provider, Scanning - 09/24/2011 9:47 AM EST * Miscellaneous - Provider, Scanning - 09/22/2011 1:43 PM EST * ED Triage - Suzanne Us RN - 09/22/2011 1:07 PM EST Pt reports fever, chills, cough, stuffy head, sinus congestion, body aches since tues or weds. States has taken multi otc meds without relief. documented in this encounter Plan of Treatment Upcoming Encounters Date Type Department Care Team (Late st Contact Info) Description 12/15/2024 11:30 AM EDT Office [place] [address] Charline Ziegler MD [facility] [place] [address] documented as of this encounter Visit Diagnoses Diagnosis Bronchitis, not specified as acute or chronic documented in this encounter Care Teams Chainstitch Tunnel Elastic Operator Relationship Specialty Start Date End Date Evon Kamara APRN [facility] [address] GENER[place] [place] [address] PCP - General 01/23/11 11/07/11 documented as of this encounter
--- OUTSIDE RECORDS SUMMARY | 2024-07-09 11:21 | XMS_ITS | Encounter Summary ---
Author Organization [facility] Address [facility] [place] [address] Care Team Providers Care Hims Manager Name Role Phone Ron Burns MD Primary Care Provider [phone] Encounter Details Date Type Department Care Team (Late st Contact Info) Description 11/20/2011 1:00 PM EDT Office Visit [place] [address] Karma [place]ares [place] Bilateral carotid artery stenosis Social History Tobacco Use Types Packs/Day [...] 11:30 AM EDT Office Visit [place] [address] Chalrine Ziegler MD [facility] [place] [address] documented as of this encounter Procedures Procedure Name Priority Date/Time Associated Diagnosis Comments CAROTID DUPLEX, BILATERAL Routine 11/20/2011 12:51 PM EDT Bilateral carotid artery stenosis documented in this encounter Results * Cerebrovascular Duplex, Bilateral (11/20/2011 12:51 PM EDT) VB Text Report Department: Vascular Surgery Lab Patient: [id number] (KEN COLE) CPT Code: 70872 ICD-9: 780.4 Referring Physician: BEATRICE RODRÍGUEZ Indication: ?? Vertigo ICD9 Diagnosis Code: 780.4 [...] statistics are based on comparisons performed at [facility] between noninvasive carotid artery duplex data and arteriographic evaluation of the same patients from 1703-1830. Q / A Sens. Spec. PPV NPV Accuracy Carotid 93% 98% 97% 95% 96% Signed by BEATRICE RODRÍGUEZ on 2011-11-20 03:39:39 PM [facility] VB Text Report End of Report [facility] 11/20/2011 12:5 1 PM EDT Beatrice Rodríguez MD VASCULAR ORDERABLES [facility] documented in this encounter Visit Diagnoses Diagnosis Bilateral carotid artery stenosis Occlusion and stenosis of multiple and bilateral precerebral arteries without mention of cerebral infarction documented in this encounter Care Teams Hims Manager Relationship Specialty Start Date End Date Ron Burns MD [address] [address] PCP - General 11/08/11 02/11/12 documented as of this encounter
--- OUTSIDE RECORDS SUMMARY | 2024-07-09 11:21 | XMS_ITS | Encounter Summary ---
Author Organization [facility] Address [facility] [place] [address] Care Team Providers Care Search Engine Optimizer Name Role Phone Reji Adams MD Primary Care Provider [phone] Encounter Details Date Type Department Care Team (Latest Contact Info) Description 03/09/2012 10:49 AM EDT - 03/09/2012 11:59 PM EDT Hospital Encounter Non-[place] [address] CLINIC, Reji Juan MD [facility] GENER[place] [address] Discharge Disposition: Home Social History Tobacco Use [...] AM EDT Office Visit [place] [address] Charline Ziegler MD [facility] [place] [address] documented as of this encounter Visit Diagnoses Not on filedocumented in this encounter Care Teams Search Engine Optimizer Relationship Specialty Start Date End Date Reji Adams MD [facility] [place] [address] PCP - General 02/12/12 06/27/15 documented as of this encounter
--- OUTSIDE RECORDS SUMMARY | 2024-07-09 11:21 | XMS_ITS | Encounter Summary ---
Author Organization [facility] Address [facility] [place] [address] Care Team Providers Care Shuttleless Loom Weaver Name Role Phone Reji Adams MD Primary Care Provider [phone] Reason for Visit * Reason Comments Other followup on echo str ess test Encounter Details Date Type Department Care Team (Late st Contact Info) Description 03/13/2012 11:20 AM EDT Follow-Up Internal Medicine at [address] [address] Reji Adams MD [facility] GENERAL [place] [address] Anxiety (Primary Dx) Discharge Disposition: Home Social History [...] Reading Time Taken Comments Blood Pressure 114/74 03/13/2012 11:23 AM EDT Pulse 63 03/13/2012 11:23 AM EDT Temperature - - Respiratory Rate - - Oxygen Saturation - - Inhaled Oxygen Concentration - - Weight 96.7 kg (213 lb 3.2 oz) 03/13/2012 11:23 AM EDT Height - - Body Mass Index 29.74 11/20/2011 1:53 PM EDT documented in this encounter Progress Notes * Reji Adams MD - 03/13/2012 12:00 PM EDT ESTABLISHED PATIENT VISIT I. HISTORY a. Reason(s) for Visit: Ken Mckeon 66 y.o. male who presents today due to complaint(s) of: Chief Complaint Patient presents with ??? Other followup on echo stress test b. History of Present Illness:[] Seen on 02/12 and 02/24 for dizziness (please see notes for details). Has had substantial workup in the past but was describing some worsening of sxs with exercise so a stress echo was performed and was negative. Concerned at last visit that pt had significant amount of anxiety/panic that was not being treated and could be playing a role in his sxs. Has been taking more xanax this week because has been having more anxiety and uncertainly. c. Review of Systems: Constitutional - no [...] Not on file II. PHYSICAL EXAM: BP 114/74 Pulse 63 Wt 96.707 kg (213 lb 3.2 oz) General - No acute distress, conversing without difficulty but is anxious appearing Eyes - EOMI. No scleral icterus Neck - No lymphadenopathy, supple, no masses Extremities - No clubbing, cyanosis or edema. III. ASSESSMENT/PLAN:Ken W Mckeon 66 y.o. male presenting for f/u anxiety that I feel is the primary yard driver of his sxs. Discussed medication options in gen and pt is very concerned about sexual side effects from SSRIs and would prefer to trial wellbutrin. Ken was seen today for other. Diagnoses and associated orders for this visit: Anxiety - Start buPROPion (WELLBUTRIN SR) 100 mg 12 hr tablet; Take 1 tablet by mouth 2 times daily. Take once daily for 3 days then increase to twice daily - clonAZEpam (KLONOPIN) 0.5 mg tablet; Take 0.5-1 tablets by mouth 2 times daily as needed for Anxiety as a bridge while waiting for wellbutrin to work. F/u 1 mth documented in this encounter Plan of Treatment Upcoming Encounters Date Type Department Care Team (Late st Contact Info) Description 12/15/2024 11:30 AM EDT Office [place] [address] Charline Ziegler MD [facility] [place] [address] documented as of this encounter Visit Diagnoses Diagnosis Anxiety- Primary Anxiety state, unspecified documented in this encounter Care Teams Shuttleless Loom Weaver Relationship Specialty Start Date End Date Reji Adams MD [facility] GENERAL [place] [address] PCP - General 02/12/12 06/27/15 documented as of this encounter
--- OUTSIDE RECORDS SUMMARY | 2024-07-09 11:22 | XMS_ITS | Encounter Summary ---
Author Organization [facility], [facility] Address [facility] [place] [address] Care Team Providers Care Engineering Program Manager Name Role Phone Reji Adams MD Primary Care Provider [phone] Encounter Details Date Type Department Care Team (Late st Contact Info) Description 04/25/2008 Interpretation Only [address] [phone] Unknown None Social History Tobacco Use Types [...] 11:30 AM EDT Office [place] [address] Charline Ziegler MD [facility] [place] [address] documented as of this encounter Procedures Procedure Name Priority Date/Time Associated Diagnosis Comments XR CERVICAL SPINE 4 OR 5 VIEWS Routine 04/25/2008 6:20 PM EDT documented in this encounter Results * XR Cervical Spine 4 or 5 Views (04/25/2008 6:20 PM EDT) Anatomical Region Laterality Modality L-spine N/A Radiographic Chelsea ging 04/25/2008 6:20 PM EDT Narrative 04/25/2008 6:20 PM EDT [facility] Historical Result Principal Brown Stock Washer: ??EMILY ??HANNAH COMPARISON: ??None. HISTORY: ??Neck pain. ??Left nerve entrapment syndrome. FINDINGS: Lateral, bilateral oblique, AP and open mouth views were submitted. ??Skull base through T1 was visualized on the lateral film. ??There is no evidence of acute fracture or malalignment. ??There is no prevertebral soft tissue swelling. ??The predental space is intact. ??A chronic-appearing ossicle adjacent to the C6 spinous process is noted. ??The oblique films are suboptimally profiled for the neural foramina. ??However, there appears to be bony encroachment bilaterally from at least the C4-5 level and inferiorly. ??Multilevel disc degenerative changes are noted, most pronounced at C6-7 with disc space narrowing, endplate irregularity and marginal osteophyte formation. 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 IMPRESSION: Diffuse degenerative changes of the cervical spine with no acute fracture. Electronically Signed By: EMILY YOUNG MD Released By: EMILY YOUNG MD Date: ??05/11/2008 10:25 Procedure Note Unknown - 03/28/2020 [facility] Historical Result Principal Brown Stock Washer: EMILY YOUNG COMPARISON: None. HISTORY: Neck pain. Left nerve entrapment syndrome. FINDINGS: Lateral, bilateral oblique, AP and open mouth views were submitted. Skullbase through T1 was visualized on the lateral film. There is no evidence of acute fracture ormalalignment. There is no prevertebral soft tissue swelling. The predental space is intact.A chronic-appearing ossicle adjacent to the C6 spinous process is noted. The oblique filmsare suboptimally profiled for the neural foramina. However, there appears to be bonyencroachment bilaterally from at least the C4-5 level and inferiorly. Multilevel disc degenerativechanges are noted, most pronounced at C6-7 with disc space narrowing, endplate irregularityand marginal osteophyte formation. 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 IMPRESSION: Diffuse degenerative changes of the cervical spine with no acutefracture. Electronically Signed By: EMILY OYUNG MD Released By: EMILY YOUNG MD Date: 05/11/2008 10:25 Unknown IMG DX ORDERABLES documented in this encounter Visit Diagnoses Not on filedocumented in this encounter Additional Health Concerns Infection Onset Date Last Indicated Resolved Time Rule Out C. difficile 03/08/2020 03/08/20202019 11:23 AM EDT documented as of this encounter Care Teams Engineering Program Manager Relationship Specialty Start Date End Date Reji Adams MD [facility] GENERAL [place] [address] PCP - General General Internal Medicine 07/13/15 documented as of this encounter
--- OUTSIDE RECORDS SUMMARY | 2024-07-09 11:22 | XMS_ITS | Encounter Summary ---
Author Organization [facility] Address [facility] [place] [address] Care Team Providers Care Collar Closer Lockstitch Name Role Phone Reji Adams MD Primary Care Provider [phone] Encounter Details Date Type Department Care Team (Late st Contact Info) Description 11/13/2009 Interpretation Only [address] [phone] Unknown None Social History Tobacco Use Types [...] 11:30 AM EDT Office Visit [place] [address] Charline Ziegler MD [facility] [place] [place] [address] documented as of this encounter Procedures Procedure Name Priority Date/Time Associated Diagnosis Comments XR CHEST PA AND LATERAL Routine 11/13/2009 1:30 PM EDT documented in this encounter Results * XR Chest PA & Lateral (Generic) (11/13/2009 1:30 PM EDT) Anatomical Region Laterality Modality Chest N/A Radiographic Chelsea ging 11/13/2009 1:30 PM EDT Narrative 11/13/2009 1:30 PM EDT [facility] Historical Result Principal Numerical Control Drill Press Operator: ??ADREN ?MD BLAYNE ORIGINAL PA & LATERAL CHEST WITH NIPPLE MARKERS: Clinical: left lower lobe nodules. The clinical history indicates left lower lobe nodules but there are no previous examinations for comparison. Heart size is normal. No masses, infiltrates or effusions are demonstrated. Limited study of the bony thorax is unremarkable. IMPRESSION: No significant abnormality. Dictated by: Daren Escoto M.D. Electronically Signed By: DAREN ESCOTO MD Released By: DAREN ESCOTO MD Date: ??11/30/2009 08:42 Procedure Note Unknown - 03/28/2020 [facility] Historical Result Principal Numerical Control Drill Press Operator: DAREN ESCOTO MD ORIGINAL PA & LATERAL CHEST WITH NIPPLE MARKERS: Clinical: left lower lobe nodules. The clinical history indicates left lower lobe nodules but there are noprevious examinations for comparison. Heart size is normal. No masses, infiltrates or effusions aredemonstrated. Limited study of the bony thorax is unremarkable. IMPRESSION: No significant abnormality. Dictated by: Daren Escoto M.D. Electronically Signed By: DAREN ESCOTO MD Released By: DAREN ESCOTO MD Date: 11/30/2009 08:42 Unknown IMG DX ORDERABLES documented in this encounter Visit Diagnoses Not on filedocumented in this encounter Additional Health Concerns Infection Onset Date Last Indicated Resolved Time Rule Out C. difficile 03/08/2020 03/08/20202019 11:23 AM EDT documented as of this encounter Care Teams Collar Closer Lockstitch Relationship Specialty Start Date End Date Reji Adams MD [facility] [place] [address] PCP - General General Internal Medicine 07/13/15 documented as of this encounter
--- OUTSIDE RECORDS SUMMARY | 2024-07-09 11:22 | XMS_ITS | Encounter Summary ---
Author Organization [facility] Address [facility] [place] [address] Care Team Providers Care Assembler Leather Goods Name Role Phone Reji Adams MD Primary Care Provider [phone] Encounter Details Date Type Department Care Team (Late st Contact Info) Description 02/16/2007 Interpretation Only [address] [phone] Unknown None Social History Tobacco Use Types [...] EDT Office [place] [address] Charline Ziegler MD [facility] [place] [address] documented as of this encounter Procedures Procedure Name Priority Date/Time Associated Diagnosis Comments XR CHEST PA AND LATERAL Routine 02/16/2007 2:49 PM EDT documented in this encounter Results * XR Chest PA & Lateral (Generic) (02/16/2007 2:49 PM EDT) Anatomical Region Laterality Modality Chest N/A Radiographic Chelsea ging 02/16/2007 2:49 PM EDT Narrative 02/16/2007 2:49 PM EDT NL Historical Result Principal Enamel Drier: ??SARAH ?CLAUDIA PA and lateral chest were obtained for shortness of breath. ??Comparison is made with the prior study of 07/21/2004. The lungs are without acute process. ??The cardiomediastinal structures are unremarkable. ??No pleural effusion is seen. No change from prior study. IMPRESSION: No acute process. Electronically Signed By: SARAH WEAVER Procedure Note Unknown - 03/28/2020 [facility] Historical Result Principal Enamel Drier: SARAH WEAVER PA and lateral chest were obtained for shortness of breath. Comparison ismade with the prior study of 07/21/2004. The lungs are without acute process. The cardiomediastinal structures areunremarkable. No pleural effusion is seen. No change from prior study. IMPRESSION: No acute process. Electronically Signed By: SARAH WEAVER Unknown IMG DX ORDERABLES documented in this encounter Visit Diagnoses Not on filedocumented in this encounter Additional Health Concerns Infection Onset Date Last Indicated Resolved Time Rule Out C. difficile 03/08/2020 03/08/20202019 11:23 AM EDT documented as of this encounter Care Teams Assembler Leather Goods Relationship Specialty Start Date End Date Reji Adams MD [facility] [place] [address] PCP - General General Internal Medicine 07/13/15 documented as of this encounter
--- OUTSIDE RECORDS SUMMARY | 2024-07-09 11:22 | XMS_ITS | Encounter Summary ---
Author Organization [facility] Address [facility] [place] [address] Care Team Providers Care Lower School Spanish Teacher Name Role Phone Reji Adams MD Primary Care Provider [phone] Encounter Details Date Type Department Care Team (Late st Contact Info) Description 03/26/2007 Interpretation Only [address] [phone] Unknown None Social History Tobacco Use Types [...] 11:30 AM EDT Office [place] [address] Charline Ziegler MD [facility] [place] [address] documented as of this encounter Procedures Procedure Name Priority Date/Time Associated Diagnosis Comments MRI LOWER EXTREMITY JOINT WO CONTRAST RIGHT Routine 03/26/2007 1:30 PM EDT documented in this encounter Results * MRI LOWER EXTREMITY JOINT WO CONTRAST RIGHT (03/26/2007 1:30 PM EDT) Anatomical Region Laterality Modality Other 03/26/2007 1:30 PM EDT Narrative 03/26/2007 1:30 PM EDT [facility] Historical Result Principal Manager Disaster Recovery: ??MORIS ??JUSTIN Plain films of 03/19/2007 are being used for comparison. On MRI there are also extensive degenerative changes with bone spurring as noted in the plain films. ??It includes the lateral anterior tibia and adjacent femoral condyle as well as medial and lateral condylar spurring. ??Along the central medial femoral condyle there is edema signal and associated irregularity of the thinned adjacent cartilage and cartilage injury. ??A lesser degree of fluid signal on the tibial plateau is seen at the base of the medial tibial spine and, more peripherally in the medial tibial plateau. ??Although there is edema in the medial tibial spine there is no fracture identified. ??Some intact fibers of the anterior cruciate ligament are noted and this is consistent with intact PCL. ??PCL is also intact but there is some slight increased signal in the PCL which may be seen with a strain or a partial tear. ?? This is an unusual injury. ?? There is attenuation of the entire medial meniscus. ??This could be post- surgical in nature or could be related to a displaced tear. ??Only a small portion of the posterior horn and even less of the anterior horn is seen. ??There is attenuation of the anterior horn of the lateral meniscus as well. ??Probable undersurface tear. There is thinning of the cartilage diffusely and this also includes the marked thinning associated with the patella. ??Some slight subluxation of the patella laterally. ??There is an evident Lassiter?s Cyst. ?? Extensor mechanisms and tendons are intact. ?? Mild effusion. ?? IMPRESSION: Contusions involving the medial femoral condyle and tibial plateau as described above. ??These are also associated with focal cartilage defects. 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 ??There is near complete absence of the medial meniscus which could be post-surgical which could be related to gross tear and displacement of the meniscus. ??Some increased signal in the posterior collateral ligament is noted and is related to mild splaying, though it is intact. ?? Extensive tricompartmental osteophytic change as described above. Electronically Signed By: MORIS ANDERSON Procedure Note Unknown - 03/28/2020 [facility] Historical Result Principal Manager Disaster Recovery: MORIS ANDERSON Plain films of 03/19/2007 are being used for comparison. On MRI there are also extensive degenerative changes with bone spurring asnoted in the plain films. It includes the lateral anterior tibia and adjacent femoralcondyle as well as medial and lateral condylar spurring. Along the central medial femoral condylethere is edema signal and associated irregularity of the thinned adjacent cartilage andcartilage injury. A lesser degree of fluid signal on the tibial plateau is seen at the base of themedial tibial spine and, more peripherally in the medial tibial plateau. Although there isedema in the medial tibial spine there is no fracture identified. Some intact fibers of theanterior cruciate ligament are noted and this is consistent with intact PCL. PCL is alsointact but there is some slight increased signal in the PCL which may be seen with a strain ora partial tear. This is an unusual injury. There is attenuation of the entire medial meniscus. This could bepost-surgical in nature or could be related to a displaced tear. Only a small portion of theposterior horn and even less of the anterior horn is seen. There is attenuation of the anterior hornof the lateral meniscus as well. Probable undersurface tear. There is thinning of the cartilage diffusely and this also includes themarked thinning associated with the patella. Some slight subluxation of the patellalaterally. There is an evident Lassiter?s Cyst. Extensor mechanisms and tendons are intact. Mild effusion. IMPRESSION: Contusions involving the medial femoral condyle and tibial plateau asdescribed above. These are also associated with focal cartilage defects. Extensive degenerativespurring consistent with tricompartmental osteophytic change. There is near complete absenceof the medial meniscus which could be post-surgical which could be related to gross tearand displacement of the meniscus. Some increased signal in the posterior collateral ligamentis noted and is related to mild splaying, though it is intact. Extensive tricompartmental osteophytic change as described above. Electronically Signed By: MORIS ANDERSON Unknown PACS IMAGES documented in this encounter Visit Diagnoses Not on filedocumented in this encounter Additional Health Concerns Infection Onset Date Last Indicated Resolved Time Rule Out C. difficile 03/08/2020 03/08/20202019 11:23 AM EDT documented as of this encounter Care Teams Lower School Spanish Teacher Relationship Specialty Start Date End Date Reji Adams MD [facility] [place] [address] PCP - General General Internal Medicine 07/13/15 documented as of this encounter
--- OUTSIDE RECORDS SUMMARY | 2024-07-09 11:22 | XMS_ITS | Encounter Summary ---
Author Organization [facility] Address [facility] [place] [address] Care Team Providers Care Mounted Police Name Role Phone Reji Adams MD Primary Care Provider [phone] Encounter Details Date Type Department Care Team (Late st Contact Info) Description 07/19/2006 Abstract Radiology and Cardiology Results [address] [place] [address] [facility] Conversion, Results Provider, Social History Tobacco Use [...] 11:30 AM EDT Office [place] [address] Charline Ziegler MD [facility] [address] documented as of this encounter Procedures Procedure Name Priority Date/Time Associated Diagnosis Comments PSA (ULTRASENSITIVE) Routine 07/19/2006 7:48 AM EST documented in this encounter Results * (ABNORMAL) PSA (Ultrasensitive) (07/19/2006 7:48 AM EST) PSA Screen 1.89(Exter nal Lab) 0.00 - 4.00 ng/mL [facility] CONVERSION 07/19/2006 7:48 AM EST Results Provider Nlh Conversion MD KAITLYNN RAMSAY ORDERABLES [facility] CONVERSION documented in this encounter Visit Diagnoses Not on filedocumented in this encounter Additional Health Concerns Infection Onset Date Last Indicated Resolved Time Rule Out C. difficile 03/08/2020 03/08/20202019 11:23 AM EDT documented as of this encounter Care Teams Mounted Police Relationship Specialty Start Date End Date Reji Adams MD [facility] [place] [address] PCP - General General Internal Medicine 07/13/15 documented as of this encounter
--- OUTSIDE RECORDS SUMMARY | 2024-07-09 11:22 | XMS_ITS | Encounter Summary ---
Author Organization [facility] Address [facility] [place] [address] Care Team Providers Care Glass Technician/Installer Name Role Phone Reji Adams MD Primary Care Provider [phone] Encounter Details Date Type Department Care Team (Late st Contact Info) Description 06/14/2008 Abstract Radiology and Cardiology Results [address] [place] [address] [facility] Conversion, Results Provider, Social History Tobacco Use [...] 11:30 AM EDT Office [place] [address] Charline Ziegler MD [facility] [place] [address] documented as of this encounter Procedures Procedure Name Priority Date/Time Associated Diagnosis Comments VITAMIN D, 25-HYDROXY Routine 06/14/2008 10:58 AM EST PSA (ULTRASENSITIVE) Routine 06/14/2008 10:58 AM EST documented in this encounter Results * (ABNORMAL) Vitamin D, 25-Hydroxy (06/14/2008 10:58 AM EST) Vit D, 25-Hydroxy 30.3(Exter nal Lab) 30.0 - 100.0 ng/mL [facility] CONVERSION 06/14/2008 10:5 8 AM EST Results Provider Nlh Conversion MD KAITLYNN RAMSAY ORDERABLES [facility] CONVERSION * (ABNORMAL) PSA (Ultrasensitive) (06/14/2008 10:58 AM EST) PSA Screen 1.54(Exter nal Lab) 0.00 - 4.00 ng/mL [facility] CONVERSION 06/14/2008 10:5 8 AM EST Results Provider Nlh Conversion MD KAITLYNN RAMSAY ORDERABLES Performing Organization Address [facility]/ZIP Co de Phone Number [facility] CONVERSION documented in this encounter Visit Diagnoses Not on filedocumented in this encounter Additional Health Concerns Infection Onset Date Last Indicated Resolved Time Rule Out C. difficile 03/08/2020 03/08/20202019 11:23 AM EDT documented as of this encounter Care Teams Glass Technician/Installer Relationship Specialty Start Date End Date Reji Adams MD [facility] GENER[place] [address] PCP - General General Internal Medicine 07/13/15 documented as of this encounter
--- OUTSIDE RECORDS SUMMARY | 2024-07-09 11:22 | XMS_ITS | Encounter Summary ---
Author Organization [facility] Address [facility] [place] [address] Care Team Providers Care Anesthesiology Physician Assistant Name Role Phone Reji Adams MD Primary Care Provider [phone] Encounter Details Date Type Department Care Team (Late st Contact Info) Description 07/18/2007 Abstract Radiology and Cardiology Results [address] [place] [address] [facility] Conversion, Results Provider, Social History [...] 11:30 AM EDT Office [place] [address] Charline Ziegler MD [facility] [place] [address] documented as of this encounter Procedures Procedure Name Priority Date/Time Associated Diagnosis Comments PSA (ULTRASENSITIVE) Routine 07/18/2007 10:18 AM EST documented in this encounter Results * (ABNORMAL) PSA (Ultrasensitive) (07/18/2007 10:18 AM EST) PSA Screen 1.42(Exter nal Lab) 0.00 - 4.00 ng/mL [facility] CONVERSION 07/18/2007 10:1 8 AM EST Results Provider Nlh Conversion MD KAITLYNN RAMSAY ORDERABLES [facility] CONVERSION documented in this encounter Visit Diagnoses Not on filedocumented in this encounter Additional Health Concerns Infection Onset Date Last Indicated Resolved Time Rule Out C. difficile 03/08/2020 03/08/20202019 11:23 AM EDT documented as of this encounter Care Teams Anesthesiology Physician Assistant Relationship Specialty Start Date End Date Reji Adams MD [facility] [place] [address] PCP - General General Internal Medicine 07/13/15 documented as of this encounter
--- OUTSIDE RECORDS SUMMARY | 2024-07-09 11:22 | XMS_ITS | Encounter Summary ---
Author Organization [facility] [place] [facility] [place] [address] Care Team Providers Care Refrigeration Systems Installer Name Role Phone Evon Kamara APRN Primary Care Provider Encounter Details Date Type Department Care Team (Late st Contact Info) Description 11/13/2009 Orders Only Internal Medicine at [address] [address] Evon Kamara APRN [facility] GENERAL INTERNAL [place] [address] Social History Tobacco Use Types Packs/Day Years [...] 11:30 AM EDT Office [place] [phone] Charline Ziegler MD [facility] [place] [address] documented as of this encounter Procedures Procedure Name Priority Date/Time Associated Diagnosis Comments FILM LIBRARY STORAGE ONLY DX CHEST Routine 11/13/2009 9:17 AM EDT documented in this encounter Results * FILM LIBRARY- STORAGE ONLY DX CHEST (11/13/2009 9:17 AM EDT) 11/13/2009 9:17 AM EDT Narrative RAD - 12/01/2013 7:03 PM EDT This is a non-reportable exam. Procedure Note Santiago Martinez - 12/01/2013 This is a non-reportable exam. Evon Kamara APRN IM FILM LIBRARY ORD ERABLES [facility] [address] [place] [address] documented in this encounter Visit Diagnoses Not on filedocumented in this encounter Care Teams Refrigeration Systems Installer Relationship Specialty Start Date End Date Evon Kamara APRN [facility] [address] [place] [address] PCP - General 01/23/11 11/07/11 documented as of this encounter
--- OUTSIDE RECORDS SUMMARY | 2024-07-09 11:22 | XMS_ITS | Encounter Summary ---
Author Organization Formerly [facility], Later [facility] Address [facility] [place] [address] Care Team Providers Care Easement Man Name Role Phone Reji Adams MD Primary Care Provider Encounter Details Date Type Department Care Team (Late st Contact Info) Description 03/19/2007 Interpretation Only [address] [phone] Unknown None Social History Tobacco Use Types [...] 11:30 AM EDT Office [place] [address] Charline Ziegler MD [facility] [place] [address] documented as of this encounter Procedures Procedure Name Priority Date/Time Associated Diagnosis Comments XR KNEE AP & LAT RIGHT Routine 03/19/2007 6:04 PM EDT documented in this encounter Results * XR Knee 1-2 Views Right (Generic) (03/19/2007 6:04 PM EDT) Anatomical Region Laterality Modality Knee Right Radiographic [place] ging 03/19/2007 6:04 PM EDT Narrative 03/19/2007 6:04 PM EDT [facility] Historical Result Principal Template Worker: ??SARAH ?CLAUDIA Two views of the right knee were obtained for pain and osteoarthritis. ??Comparison is made with the prior study dated 09/16/79. ?? There is mild narrowing of the joint compartment both medially and laterally. ??There is severe narrowing of the patellofemoral joint. ??Extensive marginal osteophytosis is present. ??There is no suggestion of acute bony trauma of bone destructive lesion. ??A joint effusion is noted. ?? The prior study was normal. ?? IMPRESSION: 1. ??No acute process. ?? 2. ??Extensive degenerative change. ?? Electronically Signed By: SARAH WEAVER Procedure Note Unknown - 03/28/2020 [facility] Historical Result Principal Template Worker: SARAH WEAVER Two views of the right knee were obtained for pain and osteoarthritis.Comparison is made with the prior study dated 09/16/79. There is mild narrowing of the joint compartment both medially andlaterally. There is severe narrowing of the patellofemoral joint. Extensive marginal osteophytosisis present. There is no suggestion of acute bony trauma of bone destructive lesion. A jointeffusion is noted. The prior study was normal. IMPRESSION: 1. No acute process. 2. Extensive degenerative change. Electronically Signed By: SARAH WEAVER Unknown IMG DX ORDERABLES documented in this encounter Visit Diagnoses Not on filedocumented in this encounter Additional Health Concerns Infection Onset Date Last Indicated Resolved Time Rule Out C. difficile 03/08/2020 03/08/20202019 11:23 AM EDT documented as of this encounter Care Teams Easement Man Relationship Specialty Start Date End Date Reji Adams MD [facility] [place] [address] PCP - General General Internal Medicine 07/13/15 documented as of this encounter
== END 2024-07-09 10:54 | disposition home or self-care (01) ==
LOC: LBO 10:56
PROVIDERS: PCP Internal Medicine; Visit Provider Student in an Organized Health Care Education/Training Program
DX: M17.12 Unilateral primary osteoarthritis, left knee (principal); Z01.818 Encounter for other preprocedural examination
CPT/HCPCS: 36415; 80048; 85027

== ENCOUNTER → 2025-04-15 08:53 | Outpatient (BNVA) | payer MEDICARE, BC, SELFPAY | PROVIDERS: PCP Internal Medicine; Referring Provider Internal Medicine ==

== ENCOUNTER → 2025-04-19 14:20 | Outpatient (BNVA) | payer MEDICARE, BC, SELFPAY | PROVIDERS: PCP Internal Medicine; Referring Provider Internal Medicine; Visit Provider Student in an Organized Health Care Education/Training Program | DX: M70.61 Trochanteric bursitis, right hip (principal); M76.31 Iliotibial band syndrome, right leg | CPT/HCPCS: 99213; 20610; J1010 ==